=== PATIENT | male | born 1990 | race Hispanic/Latino ===

== ENCOUNTER 2018-05-30 12:20 | Emergency (ER) | payer OTHER ==
[2018-05-30 13:24] LABS: Absolute Lymphocytes (CBC) 2.2 K/uL (0.7-4.9); Absolute Monocytes 2.6 K/uL (0.1-1.3); Absolute Neutrophil 28.8 K/uL (1.8-8.0); Basophils % 0.4 % (0-1.3); Lymphocytes % 6.4 % (15.3-44.8); MPV 10.2 fL (7.6-11.3); Monocytes % 7.8 % (3.3-12.3); RBC Red Blood Cell Count 5.49 M/uL (4.33-5.43)
[2018-05-30] MEDS ORDERED: NA CHLORIDE 0.9% 3,000 ML ONE (13:24)
[2018-05-30 13:27] LABS: Protime INR 1.57
[2018-05-30] MEDS ORDERED: PROMETHAZINE 25 MG/ML VIAL ONE ×2 (13:36→14:11)
[2018-05-30 13:43] LABS: ALT/SGPT 39 U/L (12-78); AST/SGOT 45 U/L (15-37); Albumin 2.8 g/dL (3.4-5.0); Alkaline Phosphatase 114 U/L (45-117); BUN Blood Urea Nitrogen 39 mg/dL (7-18); Bicarbonate 29 mmol/L (21-32); Bilirubin Direct 3.1 mg/dL (0-0.2); Bilirubin Total 4.8 mg/dL (0.2-1.0); CKMB Creatine Kinase MB < 1.0 ng/mL (0.3-3.6); Creatine Phosphokinase 177 U/L (39-308); Glucose Level 156 mg/dL (74-106); Lipase 1247 U/L (73-393); Potassium 3.6 mmol/L (3.5-5.1); Protein, Total 8.2 g/dL (6.4-8.2); Sodium Level 133 mmol/L (136-145); Troponin (Emerg Dept Use Only) < 0.02 ng/mL (0.0-0.045)
[2018-05-30 13:57] LABS: Urine Amorphous Sediment 1+ /HPF (NONE SEEN); Urine Bacteria 20-50 /HPF (NONE SEEN); Urine Culture Reflex Order REFLEXED
[2018-05-30 14:28] LABS: Blood Morphology Comment NOT SEEN (NOT SEEN); Platelet Estimate ADEQ; Polychromasia SLIGHT
[2018-05-30] MEDS ORDERED: PIPER/TAZO/NS 3.375gm 3.375 GM/100 ML BAG ONE (14:39)
--- NOTE | 2018-05-30 14:44 | RAD REPORT ---
EXAM DESCRIPTION: US - Abdomen Exam Limited - 05/30/2018 2:38 pm CLINICAL HISTORY: Abdominal pain. COMPARISON: None. FINDINGS: The gallbladder wall is not thickened. A gallstone is not seen. The gallbladder is disten ded The biliary tree is normal caliber. IMPRESSION: Gallbladder distention without visualization of a gallstone
--- NOTE | 2018-05-30 14:47 | RAD REPORT ---
EXAM DESCRIPTION: CT - Abdomen Pelvis W Contrast - 05/30/2018 2:40 pm CLINICAL HISTORY: Abdominal pain . COMPARISON: none. TECHNIQUE: Computed axial tomography of the abdomen pelvis was obtained. 100 cc Isovue-300 was admin istered intravenously. Oral contrast was not requested which limits evaluation of bowel. All CT scans are performed using dose optimization technique as appropriate and may include automated exposure control or mA/KV adjustment according to patient size. FINDINGS: Fatty liver Small left pleural effusion with basilar atelectasis Spleen, adrenal and kidneys appear unremarkable. The pancreas is enlarged and inhomogeneous. Moderate stranding is present within the adjacent fat wit h ill-defined fluid. A pseudocyst is not noted. There is no evidence of diverticulitis. Small amount of ascites IMPRESSION: Moderate pancreatitis
--- NOTE | 2018-05-30 15:51 | ER ---
Nurse's Notes [facility] Name: Jann Alvarez Age: 28 yrs Sex: Male : 1990 Arrival Date: 05/30/2018 Time: 12:24 Bed 26 Private MD: Diagnosis: Sepsis;Urinary tract infection, site not specified;Cholangitis Presentation: 05/30 12:28 Presenting complaint: Mother states: He has had weakness and vomiting for the past 2 aj1 days. His eyes are yellow, we went to his doctor and they gave him Zofran but his heart rate did not come down so they told us to come to the emergency room. Transition of care: patient was not received from another setting of care. Onset of symptoms was May 28, 2017. Risk Assessment: Do you want to hurt yourself or someone else? Patient reports no desire to harm self or others. Initial Sepsis Screen: Does the patient meet any 2 criteria? HR > 90 bpm. Does the patient have a suspected source of infection? Yes: Acute abdominal pain. Care prior to arrival: None. 12:28 Method Of Arrival: Wheelchair aj1 12:28 Acuity: KIMBER 2 aj1 Triage Assessment: 12:29 General: Appears uncomfortable, Behavior is calm, cooperative. Pain: Complains of pain aj1 in abdomen. Neuro: Level of Consciousness is awake, alert, obeys commands. Cardiovascular: Patient's skin is warm and dry. Respiratory: Airway is patent Respiratory effort is even, unlabored, Respiratory pattern is regular, symmetrical. Derm: Skin is pale. 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 - Social history:: Smoking status: Patient/guardian denies using tobacco. - Ebola Screening: : Patient denies travel to an Ebola-affected area in the 21 days before illness onset. Screenin:35 Abuse screen: Denies threats or abuse. Denies injuries from another. Nutritional ca1 screening: No deficits noted. Tuberculosis screening: No symptoms or risk factors identified. Fall Risk None identified. Assessment: 12:35 General: Appears in no apparent distress. comfortable, Behavior is calm, cooperative. ca1 Pain: Complains of pain in abdomen Pain began 1 day ago. Is intermittent, Unable to use pain scale. Patient appears to be grimacing, to be guarding. Neuro: Level of Consciousness is awake, alert, obeys commands, Oriented to person. Neuro: Oriented to person. Cardiovascular: Heart tones S1 S2 present Capillary refill < 3 seconds Patient's skin is warm and dry. Rhythm is sinus tachycardia. Respiratory: Airway is patent Respiratory effort is even, unlabored, Respiratory pattern is regular, symmetrical, Breath sounds are clear bilaterally. GI: Abdomen is round non-distended, Bowel sounds present X 4 quads. Abd is soft X 4 quads Abdomen is tender to palpation in left lower quadrant and left upper quadrant Parent/caregiver reports the patient having nausea, vomiting, since 4 days ago. : No deficits noted. No signs and/or symptoms were reported regarding the genitourinary system. EENT: Tympanic membrane clear on left ear and right ear Throat is pink. Derm: Skin is intact, is healthy with good turgor, Skin is pink, warm \T\ dry. Musculoskeletal: Circulation, motion, and sensation intact. Capillary refill < 3 seconds. 13:22 Reassessment: Pt actively vomiting. Notified Provider, meds ordered and administered. ca1 13:47 Reassessment: CRITICAL LAB: WBC 33.7. NOTIFIED PROVIDER. ca1 14:05 Reassessment: Pt actively vomiting. Notified providers, meds ordered and administered. ca1 14:07 Reassessment: Patient appears in no apparent distress at this time. Patient is alert, ca1 oriented x 3, equal unlabored respirations, skin warm/dry/pink. Pt to taken to Radiology. 14:41 Reassessment: Patient appears in no apparent distress at this time. Patient is alert, ca1 oriented x 3, equal unlabored respirations, skin warm/dry/pink. Pt back from Radiology. No reports of vomiting at this time. 15:29 Reassessment: Patient appears in no apparent distress at this time. Patient is alert, ca1 oriented x 3, equal unlabored respirations, skin warm/dry/pink. Family still at bedside. 16:35 Reassessment: Called report to Mellissa Alvarez RN at [facility]. ca1 17:15 Reassessment: Pt vomited. Notified Provider. Med ordered and administered. ca1 17:20 Reassessment: Patient appears in no apparent distress at this time. Patient is alert, ca1 oriented x 3, equal unlabored respirations, skin warm/dry/pink. 17:25 Reassessment: Hand off care and report given to EMS [facility]. ca1 Vital Signs: 12:29 BP 118 / 99; Pulse 153; Resp 18; Temp 98.4(TE); Pulse Ox 95% on R/A; Weight 104.33 kg; aj1 13:39 BP 134 / 107; Pulse 125; Resp 20; Pulse Ox 96% on R/A; ca1 14:00 BP 140 / 105; Pulse 136; Resp 24; Pulse Ox 97% on R/A; ca1 14:52 BP 143 / 89; Pulse 118; Resp 24; Pulse Ox 97% on R/A; ca1 15:29 BP 143 / 95; Pulse 121; Resp 21; Temp 98.1(O); Pulse Ox 96% on R/A; ca1 15:41 BP 138 / 82; Pulse 120; Resp 21; Pulse Ox 96% on R/A; ca1 16:37 BP 143 / 84; Pulse 116; Resp 23; Pulse Ox 95% on R/A; ca1 17:23 BP 149 / 95; Pulse 122; Resp 24 S; Pulse Ox 96% on R/A; ca1 ED Course: 12:24 Patient arrived in ED. as 12:29 Triage completed. aj1 12:29 Arm band placed on Patient placed in an exam room. aj1 12:35 Darleen Ordonez, RN is Primary Nurse. ca1 12:35 Patient has correct armband on for positive identification. Placed in gown. Bed in low ca1 position. Call light in reach. Side rails up X 1. Adult w/ patient. compliance monitor on. Pulse ox on. NIBP on. Warm blanket given. 12:38 Jaguar Crawley PA is PHCP. jr8 12:38 Ellis Moreno MD is Attending Physician. jr8 12:43 Inserted saline lock: 20 gauge in right antecubital area, using aseptic technique. ss Blood collected. 12:54 EKG done, by accounts payable technician. reviewed by Jaguar SANDY. at1 13:24 Urine collected: clean catch specimen, tea colored, Amount Voided: 10mL. ca1 13:37 Lab(s) recollected, by me, sent to lab. em1 13:38 Chest Single View XRAY In Process Unspecified. EDMS 14:38 US Abdomen Limited In Process Unspecified. EDMS 14:40 CT Abd/Pelvis - W/Contrast In Process Unspecified. EDMS 15:11 transfer initiated with Carli at the [facility] transfer center/. eb 15:[address] Edgar the loan documentation specialist non categorical preschool teacher for [facility] with Jaguar SANDY for eb patient transfer consultation. 16:10 administrative approval given by Carli Durham RN education program coordinator/ patient has been eb accepted to the [facility] medical ICU/ Dr. Edgar has accepted the patient in transfer/ patient is going to [address] [place] [address] bed 710/ report to be called to [phone]. 17:15 Inserted saline lock: 20 gauge in left antecubital area, using aseptic technique. ca1 17:26 No provider procedures requiring assistance completed. Patient transferred, IV remains ca1 in place. Administered Medications: 12:57 Drug: NS 0.9% (30 ml/kg) 30 ml/kg Route: IV; Rate: bolus; Site: right antecubital; ca1 16:00 Follow up: IV Status: Completed infusion ca1 13:24 Drug: Promethazine 12.5 mg Route: IVP; Site: right antecubital; ca1 14:10 Follow up: Response: No adverse reaction; Vomiting unchanged ca1 14:05 Drug: Promethazine 12.5 mg Route: IVP; Site: right antecubital; ca1 15:50 Follow up: Response: No adverse reaction; Vomiting decreased ca1 14:45 Drug: Zosyn 3.375 grams Route: IVPB; Infused Over: 60 mins; Site: right antecubital; ca1 17:15 Follow up: IV Status: Infusion continued upon transfer ca1 15:43 Drug: fentaNYL (PF) 50 mcg Route: IVP; Site: right antecubital; ca1 17:00 Follow up: Response: No adverse reaction; Pain is decreased ca1 17:15 Drug: Zofran 4 mg Route: IVP; Site: left antecubital; ca1 17:15 Follow up: Response: Medication administered upon transfer ca1 Point of Care Testing: Blood Glucose: 13:42 Blood Glucose: 157 mg/dL; ca1 Ranges: Intake: 16:37 IV: 3000ml; Total: 3000ml. ca1 Output: 15:29 Urine: 100ml (Voided); Total: 100ml. ca1 16:37 Urine: 270ml (Voided); Total: 370ml. ca1 Outcome: 15:50 ER care complete, transfer ordered by MD. hurt 17:26 Transferred by ground EMS to [facility], Transfer form completed. ca1 X-rays sent w/ patient. 17:26 Condition: stable 17:26 Instructed on the need for transfer. 17:28 Patient left the ED. ca1 Signatures: Dispatcher [employer] EDMS Molly Perdomo RN RN aj1 Teresa Cedeno Eric em1 Kimberly Brar RN RN ss Roszak, Josh, PA PA jr8 Bonita Barbosa, creosoting engineer EKG Tat1 Christy Astudillo Cheryl, RN RN ca1 Corrections: (The following items were deleted from the chart) : 13:35 General: Appears in no apparent distress. comfortable, Behavior is calm, ca1 cooperative, ca1 : 13:35 Pain: Complains of pain in abdomen Pain began 1 day ago. Is intermittent, Unable ca1 to use pain scale. Patient appears to be grimacing, to be guarding, ca1 : 13:35 Neuro: Level of Consciousness is awake, alert, obeys commands, Oriented to ca1 person, ca1 : 13:35 Cardiovascular: Heart tones S1 S2 present Capillary refill < 3 seconds Patient's ca1 skin is warm and dry. Rhythm is sinus tachycardia ca1 13:35 Neuro: Oriented to none ca1 ca1 : 13:35 Respiratory: Airway is patent Respiratory effort is even, unlabored, Respiratory ca1 pattern is regular, symmetrical, Breath sounds are clear bilaterally. ca1 : 13:35 GI: Abdomen is round non-distended, Bowel sounds present X 4 quads. Abd is soft X ca1 4 quads Abdomen is tender to palpation in left lower quadrant and left upper quadrant Parent/caregiver reports the patient having nausea, vomiting, since 4 days ago ca1 13:35 : No deficits noted. No signs and/or symptoms were reported regarding the ca1 genitourinary system. ca1 : 13:35 EENT: Tympanic membrane clear on left ear and right ear Throat is pink ca1 ca1 13:35 Derm: Skin is intact, is healthy with good turgor, Skin is pink, warm \T\ dry. ca1 ca1 13:35 Musculoskeletal: Circulation, motion, and sensation intact. Capillary refill < 3 ca1 seconds, ca1 16:21 12:35 Neuro: Oriented to none ca1 ca1
--- NOTE | 2018-05-30 15:52 | EDPHYS ---
Physician Documentation [facility] Name: Jann Alvarez Age: 28 yrs Sex: Male : 1990 Arrival Date: 05/30/2018 Time: 12:24 Bed 26 Private MD: ED Physician Ellis Moreno HPI: 05/30 13:17 This 28 yrs old Male presents to ER via Wheelchair with complaints of Fever jr8 and vomiting. 13:17 The patient reports fever, not measured (subjective). Onset: The symptoms/episode jr8 began/occurred acutely, 2 day(s) ago. Modifying factors: there are no obvious modifying factors. Associated signs and symptoms: Pertinent positives: abdominal pain, vomiting. Severity of symptoms: At their worst the symptoms were moderate in the emergency department the symptoms are unchanged. The patient has not experienced similar symptoms in the past. The patient has been recently seen at an urgent care, today. Patient with autism history. Mother stated that he had been running fever for the past couple of days with vomiting. Complains of abdominal pain. Saw clinic this morning and gave him shot of zofran and told him to go to ED for further evaluation. Elevated HR upon arrival . 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 - Social history:: Smoking status: Patient/guardian denies using tobacco. - Ebola Screening: : Patient denies travel to an Ebola-affected area in the 21 days before illness onset. ROS: 13:17 Eyes: Negative for injury, pain, redness, and discharge, ENT: Negative for injury, jr8 pain, and discharge, Neck: Negative for injury, pain, and swelling, Cardiovascular: Negative for chest pain, palpitations, and edema, Respiratory: Negative for shortness of breath, cough, wheezing, and pleuritic chest pain, Back: Negative for injury and pain, MS/Extremity: Negative for injury and deformity, Skin: Negative for injury, rash, and discoloration, Neuro: Negative for headache, weakness, numbness, tingling, and seizure. 13:17 Constitutional: Positive for fever. 13:17 Abdomen/GI: Positive for abdominal pain, nausea and vomiting, Negative for diarrhea, abdominal distension, anorexia, dysphagia, hematemesis, black/tarry stool, rectal pain, rectal bleeding, bowel incontinence, flatulence. Exam: 13:17 Eyes: Pupils equal round and reactive to light, extra-ocular motions intact. Lids and jr8 lashes normal. Conjunctiva and sclera are non-icteric and not injected. Cornea within normal limits. Periorbital areas with no swelling, redness, or edema. ENT: Nares patent. No nasal discharge, no septal abnormalities noted. Tympanic membranes are normal and external auditory canals are clear. Oropharynx with no redness, swelling, or masses, exudates, or evidence of obstruction, uvula midline. Mucous membranes moist. Neck: Trachea midline, no thyromegaly or masses palpated, and no cervical lymphadenopathy. Supple, full range of motion without nuchal rigidity, or vertebral point tenderness. No Meningismus. Respiratory: Lungs have equal breath sounds bilaterally, clear to auscultation and percussion. No rales, rhonchi or wheezes noted. No increased work of breathing, no retractions or nasal flaring. Back: No spinal tenderness. No costovertebral tenderness. Full range of motion. Skin: Warm, dry with normal turgor. Normal color with no rashes, no lesions, and no evidence of cellulitis. MS/ Extremity: Pulses equal, no cyanosis. Neurovascular intact. Full, normal range of motion. Neuro: Awake and alert, GCS 15, oriented to person, place, time, and situation. Cranial nerves II-XII grossly intact. Motor strength 5/5 in all extremities. Sensory grossly intact 13:17 Cardiovascular: Rate: tachycardic, Rhythm: regular, Pulses: Pulses are 2+ in right radial artery and left radial artery. Heart sounds: normal, normal S1and S2, no S3 or S4, no murmur, no rub, no gallop, Edema: is not appreciated, JVD: is not appreciated. 13:17 Abdomen/GI: Inspection: obese Bowel sounds: active, all quadrants, Palpation: soft, in all quadrants, mild abdominal tenderness, in the right upper quadrant, left upper quadrant and left lower quadrant, mass, is not appreciated, rebound tenderness, is not appreciated, voluntary guarding, is not appreciated, involuntary guarding, is not appreciated, no appreciated organomegaly, Indicators: McBurney's point is not tender, Olivera's sign is negative, Rovsing's sign is negative, Liver: tenderness, is not appreciated. 14:05 ECG was reviewed by the Attending Physician. jr8 Vital Signs: 12:29 BP 118 / 99; Pulse 153; Resp 18; Temp 98.4(TE); Pulse Ox 95% on R/A; Weight 104.33 kg; aj1 13:39 BP 134 / 107; Pulse 125; Resp 20; Pulse Ox 96% on R/A; ca1 14:00 BP 140 / 105; Pulse 136; Resp 24; Pulse Ox 97% on R/A; ca1 14:52 BP 143 / 89; Pulse 118; Resp 24; Pulse Ox 97% on R/A; ca1 15:29 BP 143 / 95; Pulse 121; Resp 21; Temp 98.1(O); Pulse Ox 96% on R/A; ca1 15:41 BP 138 / 82; Pulse 120; Resp 21; Pulse Ox 96% on R/A; ca1 16:37 BP 143 / 84; Pulse 116; Resp 23; Pulse Ox 95% on R/A; ca1 17:23 BP 149 / 95; Pulse 122; Resp 24 S; Pulse Ox 96% on R/A; ca1 MDM: 12:40 Patient medically screened. 8 15:48 Data reviewed: vital signs, nurses notes, lab test result(s), EKG, radiologic studies, [facility] CT scan, plain films, ultrasound. Data interpreted: Pulse oximetry: on room air is 96 %. Interpretation: normal. Counseling: I had a detailed discussion with the patient and/or guardian regarding: the historical points, exam findings, and any diagnostic results supporting the discharge/admit diagnosis, lab results, radiology results, the need to transfer to another facility, [facility] does not immediately have the required specialist. ED course: Dr. Edgar at [facility] consulted on case as we do not have definitive treatment to further work this patient up here. Accepted patient to ICU at [facility] . 05/30 12:52 Order name: Influenza Screen (a \T\ B) [facility] 05/30 12:52 Order name: Strep [facility] 05/30 12:52 Order name: Basic Metabolic Panel [facility] 05/30 12:52 Order name: Blood Culture Adult (2) [facility] 05/30 12:52 Order name: CBC with Diff; Complete Time: 14:37 [facility] 05/30 12:52 Order name: Ckmb; Complete Time: 13:54 [facility] 05/30 12:52 Order name: CPK; Complete Time: 13:54 [facility] 05/30 12:52 Order name: Lactate; Complete Time: 14:07 [facility] 05/30 12:52 Order name: LFT's; Complete Time: 13:54 [facility] 05/30 12:52 Order name: Lipase; Complete Time: 13:54 [facility] 05/30 12:52 Order name: Procalcitonin; Complete Time: 14:07 [facility] 05/30 12:52 Order name: Protime (+inr); Complete Time: 13:54 [facility] 05/30 12:52 Order name: Ptt, Activated; Complete Time: 13:54 [facility] 05/30 12:52 Order name: Troponin (emerg Dept Use Only); Complete Time: 13:54 [facility] 05/30 12:52 Order name: Urine Microscopic Only; Complete Time: 14:07 [facility] 05/30 12:52 Order name: Chest Single View XRAY [facility] 05/30 12:53 Order name: Influenza Screen (A ; Complete Time: 13:54 [facility] 05/30 12:53 Order name: Group A Streptococcus Rapid Sc; Complete Time: 13:42 [facility] 05/30 12:53 Order name: Basic Metabolic Panel; Complete Time: 13:54 [facility] 05/30 13:24 Order name: Glucose, Ancillary Testing; Complete Time: 13:30 [facility] 05/30 13:39 Order name: Throat Culture [facility] 05/30 13:48 Order name: Manual Differential; Complete Time: 14:37 [facility] 05/30 13:55 Order name: US Abdomen Limited; Complete Time: 14:55 [facility] 05/30 13:55 Order name: CT Abd/Pelvis - W/Contrast; Complete Time: 14:55 [facility] 05/30 13:58 Order name: Urine Culture [facility] 05/30 14:02 Order name: Urine Dipstick--Ancillary (enter results) 05/30 12:52 Order name: Accucheck; Complete Time: 13:40 [facility] 05/30 12:52 Order name: Cardiac monitoring; Complete Time: 13:40 [facility] 05/30 12:52 Order name: EKG - Nurse/Tech; Complete Time: 13:41 05/30 12:52 Order name: IV Saline Lock - Large Bore; Complete Time: 13:40 05/30 12:52 Order name: Labs collected and sent; Complete Time: 13:40 05/30 12:52 Order name: O2 Per Protocol; Complete Time: 13:41 05/30 12:52 Order name: O2 Sat Monitoring; Complete Time: 13:05/30 12:52 Order name: Urine Dipstick-Ancillary (obtain specimen); Complete Time: 13:42 05/30 13:23 Order name: Labs - recollect needed; Complete Time: 13:37 eb EC:05 Rate is 140 beats/min. Rhythm is regular, Sinus tachycardia. QRS [place] is Normal. [place] jr8 interval is normal at 126 msec. QRS interval is normal at 78 msec. QT interval is normal at 427 msec. No Q waves. T waves are Normal. No ST changes noted. Clinical impression: Sinus tachycardia and No evidence of ischemia. Interpreted by me. Reviewed by me. Administered Medications: 12:57 Drug: NS 0.9% (30 ml/kg) 30 ml/kg Route: IV; Rate: bolus; Site: right antecubital; ca1 16:00 Follow up: IV Status: Completed infusion ca1 13:24 Drug: Promethazine 12.5 mg Route: IVP; Site: right antecubital; ca1 14:10 Follow up: Response: No adverse reaction; Vomiting unchanged ca1 14:05 Drug: Promethazine 12.5 mg Route: IVP; Site: right antecubital; ca1 15:50 Follow up: Response: No adverse reaction; Vomiting decreased ca1 14:45 Drug: Zosyn 3.375 grams Route: IVPB; Infused Over: 60 mins; Site: right antecubital; ca1 17:15 Follow up: IV Status: Infusion continued upon transfer ca1 15:43 Drug: fentaNYL (PF) 50 mcg Route: IVP; Site: right antecubital; ca1 17:00 Follow up: Response: No adverse reaction; Pain is decreased ca1 17:15 Drug: Zofran 4 mg Route: IVP; Site: left antecubital; ca1 17:15 Follow up: Response: Medication administered upon transfer ca1 Point of Care Testing: Blood Glucose: 13:42 Blood Glucose: 157 mg/dL; ca1 Ranges: Critical Glucose Levels:Adult <50 mg/dl or >400 mg/dl <40 mg/dl or >180 mg/dl Disposition: 05/30/18 15:50 Transfer ordered to [facility]. Diagnosis are Sepsis, Urinary tract infection, site not specified, Cholangitis. - Reason for transfer: Higher level of care. - Accepting physician is Dr. Edgar. - Condition is Fair. - Problem is new. - Symptoms have improved. Critical care time excluding procedures: 15:48 Critical care time: Bedside Care: 20 minutes, Consultation: 10 minutes, Family jr8 Intervention: 10 minutes. Total time: 40 minutes Addendum: 06/04/2018 10:33 Co-signature as Attending Physician, Ellis Mroeno MD I agree with the assessment and k dr plan of care. Signatures: Dispatcher [employer] EDMS Molly Perdomo RN RN aj1 Ellis Moreno MD MD [facility] Jaguar Crawley PA PA jr8 Christy Astudillo Cheryl, RN RN ca1 Corrections: (The following items were deleted from the chart) 05/30 14:06 13:17 Abdomen/GI: Inspection: obese Bowel sounds: active, all quadrants, Palpation: jr8 soft, in all quadrants, mild abdominal tenderness, in the left upper quadrant and left lower quadrant, mass, is not appreciated, rebound tenderness, is not appreciated, voluntary guarding, is not appreciated, involuntary guarding, is not appreciated, no appreciated organomegaly, Indicators: McBurney's point is not tender, Olivera's sign is negative, Rovsing's sign is negative, Liver: tenderness, is not appreciated, jr8 17:28 15:50 05/30/2018 15:50 Transfer ordered to [facility]. Diagnosis is ca1 Sepsis; Urinary tract infection, site not specified; Cholangitis. Reason for transfer: Higher level of care. Accepting physician is Dr. Edgar. Condition is Fair. Problem is new. Symptoms have improved. jr8
[2018-05-30] MEDS ORDERED: FENTANYL CITR 100 MCG/2 ML ONE (15:57)
[2018-05-30] MEDS ORDERED: ONDANSETRON 4 MG/2 ML VIAL ONE (17:25)
[2018-05-30 20:11] LABS: Urine Blood 3+ (NEG); Urine Glucose TRACE (NEG); Urine Protein 3+ (NEG); Urine Specific Gravity 1.025 (1.005-1.030)
--- NOTE | 2018-05-31 06:44 | EKG ---
Test Date: 2018-05-30 Test Time: 12:51:35 Curriculum Coach: JOSE GUADALUPE MEASUREMENT RESULTS: Intervals: Rate: 140 PA: 126 QRSD: 78 QT: 280 QTc: 427 [place]: P: 36 PA: 126 QRS: 16 T: 36 INTERPRETIVE STATEMENTS: Sinus tachycardia Possible Anterior infarct, age undetermined Abnormal ECG Compared to ECG 05/23/1996 15:41:00 Myocardial infarct finding now present Electronically Signed On 05-31-18 06:42:32 CDT by Charly Faustin
--- NOTE | 2018-05-31 10:10 | RAD REPORT ---
EXAM DESCRIPTION: Mary Single View05/30/2018 1:38 pm CLINICAL HISTORY: Fever COMPARISON: none FINDINGS: The patient is in poor degree of inspiration. Lungs appear grossly clear. The heart is mildly to moderately enlarged IMPRESSION: No acute abnormalities displayed
== END 2018-05-30 17:28 | disposition short-term general hospital (02) ==
LOC: ER 12:20
DX: N39.0 Urinary tract infection, site not specified (principal); A41.9 Sepsis, unspecified organism; K83.09 Other cholangitis; F84.0 Autistic disorder
CPT/HCPCS: 36415; 71045; 74177; 76705; 80048; 80076; 81003; 81015; 82550; 82553; 82962; 83605; 83690; 84145; 84484; 85025; 85610; 85730; 87040; 87070; 87081; 87086; 87088; 87804; 93005; 99285; J2405; J2543; J2550; J3010; J7030; Q9967

== ENCOUNTER 2018-07-09 13:26 | Emergency (ER) | payer OTHER ==
--- OUTSIDE RECORDS SUMMARY | 2018-07-09 13:33 | XMS REPORT | Clinical Summary ---
:1990 Author Organization [facility] Address [address] [place] [address] Care Team Providers Name Role Phone Zac Coughlin Primary Care Provider Allergies No Known Allergies Medications Medication Sig Dispensed Refills Start Date End Date Status docusate sodium Take 1 capsule 30 capsule 0 06/17/2018 07/17/2018 Active (COLACE) 100 MG (100 mg total) capsule by mouth daily for 30 days. nystatin Apply topically 15 g 0 06/16/2018 06/16/2019 Active (MYCOSTATIN) 100,000 2 (two) times unit/gram powder daily. HYDROcodone-acetamin Take 1 tablet by 30 tablet 0 06/16/2018 06/26/2018 ophen (NORCO 5-325) mouth every 8 5-325 mg per tablet (eight) hours as needed for up to 10 days. Max Daily Amount: 3 tablets polyethylene glycol Take 17 g by 14 each 0 06/16/2018 06/19/2018 (GLYCOLAX) 17 gram mouth daily as packet needed (constipation) for up to 3 days. Active Problems Problem Noted Date Cholangitis 05/30/2018 Encounters Date Type Specialty Care Team Description 06/02/2018 Travel 05/31/2018 Anesthesia Event Gastroenterology Zachary Richmond MD 05/31/2018 Surgery Gastroenterology Wilmer Santiago ERCP,PAPILLOTOMY MD Kai 05/30/2018 [facility] General Internal Herve, Cholangitis; - Encounter Medicine Wyatt Acute pancreatitis, unspecified complication status, unspecified pancreatitis type; 06/16/2018 MD Mitchell Autism; Alphonso, Dipaben Requires supplemental oxygen; MD Onel Diarrhea, unspecified type; Oscar, Gallstone pancreatitis; Negin Connors, Prolonged pt (prothrombin time); Prolonged PTT; Kellen Toro MD Epigastric abdominal pain Jasmin Monsivais MD 05/30/2018 Telephone Critical Care Medicine Herve, [id number] Call Wyatt Medrano MD after 07/08/2017 Social History Tobacco Use Types Packs/Day Years Used Date Never Smoker Sex Assigned at Date Recorded Not on file Job Start Date Occupation Industry Not on file Not on file Not on file Travel History Travel Start Travel End No recent travel history available. Last Filed Vital Signs Vital Sign Reading Time Taken Blood Pressure 125/90 06/16/2018 7:59 AM CDT Pulse 60 06/16/2018 7:59 AM CDT Temperature 37.1 C (98.7 F) 06/16/2018 7:59 AM CDT Respiratory Rate 18 06/16/2018 7:59 AM CDT Oxygen Saturation 97% 06/16/2018 7:59 AM CDT Inhaled Oxygen Concentration - - Weight 103.8 kg (228 lb 13.4 oz) 06/02/2018 5:00 AM CDT Height 177.8 cm (5' 10") 05/30/2018 8:00 PM CDT Body Mass Index 32.83 06/02/2018 5:00 AM CDT Plan of Treatment Not on file Implants Implanted Type Area Outdoor Illuminating Engineer Device Shelf Model / Identifier Expiration Date Serial / Lot Stent Bili Advanix [id number] - [id number] Stents-Pe [place] 03/10/2020 [id number] / Implanted: Qty: 1 on 05/31/2018 by Wilmer Santiago MD [facility] SCI: PERIPHERAL / INTERV Procedures Procedure Name Priority Date/Time Associated Comments Diagnosis RHYTHM STRIP - SCAN 06/18/2018 7:50 AM CDT PT/APTT Routine 06/16/2018 6:29 Results for this AM CDT procedure are in the results section. CBC W/PLT COUNT & Routine 06/16/2018 6:28 Results for this AUTO DIFFERENTIAL AM CDT procedure are in the results section. CBC W/PLT COUNT & Routine 06/16/2018 6:28 Results for this AUTO DIFFERENTIAL AM CDT procedure are in the results section. MAGNESIUM Routine 06/16/2018 6:28 Results for this AM CDT procedure are in the results section. HEPATIC FUNCTION Routine 06/16/2018 6:28 Results for this PANEL AM CDT procedure are in the results section. BASIC METABOLIC PANEL Routine 06/16/2018 6:28 Results for this (7) AM CDT procedure are in the results section. CBC W/PLT COUNT & Routine 06/15/2018 6:33 Results for this AUTO DIFFERENTIAL AM CDT procedure are in the results section. CBC W/PLT COUNT & Routine 06/15/2018 6:33 Results for this AUTO DIFFERENTIAL AM CDT procedure are in the results section. MAGNESIUM Routine 06/15/2018 6:32 Results for this AM CDT procedure are in the results section. PROTHROMBIN TIME/INR Routine 06/15/2018 6:32 Results for this AM CDT procedure are in the results section. PT/APTT Routine 06/15/2018 6:32 Results for this AM CDT procedure are in the results section. HEPATIC FUNCTION Routine 06/15/2018 6:32 Results for this PANEL AM CDT procedure are in the results section. BASIC METABOLIC PANEL Routine 06/15/2018 6:32 Results for this (7) AM CDT procedure are in the results section. BETA-2 GLYCOPROTEIN Routine 06/14/2018 4:34 Results for this ANTIBODIES PM CDT procedure are in the results section. CBC W/PLT COUNT & Routine 06/14/2018 5:40 Results for this AUTO DIFFERENTIAL AM CDT procedure are in the results section. CBC W/PLT COUNT & Routine 06/14/2018 5:40 Results for this AUTO DIFFERENTIAL AM CDT procedure are in the results section. MAGNESIUM Routine 06/14/2018 5:40 Results for this AM CDT procedure are in the results section. PROTHROMBIN TIME/INR Routine 06/14/2018 5:40 Results for this AM CDT procedure are in the results section. PT/APTT Routine 06/14/2018 5:40 Results for this AM CDT procedure are in the results section. HEPATIC FUNCTION Routine 06/14/2018 5:40 Results for this PANEL AM CDT procedure are in the results section. BASIC METABOLIC PANEL Routine 06/14/2018 5:40 Results for this (7) AM CDT procedure are in the results section. HEXAGONAL AP Routine 06/13/2018 12:20 Results for this PHOSPHOLIPID PM CDT procedure are in the results section. THROMBIN TIME Routine 06/13/2018 12:20 Results for this PM CDT procedure are in the results section. EQUAL MIX, NORMAL AP Routine 06/13/2018 12:20 Results for this PLASMA PM CDT procedure are in the results section. LUPUS ANTICOAGULANT AP Routine 06/13/2018 12:20 Results for this SCREEN WITH REFLEX TO PM CDT procedure are in CONFIRMATORY the results section. CARDIOLIPIN Routine 06/13/2018 12:20 Results for this ANTIBODIES, IGG AND PM CDT procedure are in IGM the results section. FIBRINOGEN Routine 06/13/2018 12:20 Results for this PM CDT procedure are in the results section. MAGNESIUM Routine 06/13/2018 10:04 Results for this AM CDT procedure are in the results section. HEPATIC FUNCTION Routine 06/13/2018 10:04 Results for this PANEL AM CDT procedure are in the results section. BASIC METABOLIC PANEL Routine 06/13/2018 10:04 Results for this (7) AM CDT procedure are in the results section. CBC W/PLT COUNT & Routine 06/13/2018 5:55 Results for this AUTO DIFFERENTIAL AM CDT procedure are in the results section. CBC W/PLT COUNT & Routine 06/13/2018 5:55 Results for this AUTO DIFFERENTIAL AM CDT procedure are in the results section. PROTHROMBIN TIME/INR Routine 06/13/2018 5:55 Results for this AM CDT procedure are in the results section. PT/APTT Routine 06/13/2018 5:55 Results for this AM CDT procedure are in the results section. CBC W/PLT COUNT & Routine 06/12/2018 5:20 Results for this AUTO DIFFERENTIAL AM CDT procedure are in the results section. CBC W/PLT COUNT & Routine 06/12/2018 5:20 Results for this AUTO DIFFERENTIAL AM CDT procedure are in the results section. MAGNESIUM Routine 06/12/2018 5:20 Results for this AM CDT procedure are in the results section. PROTHROMBIN TIME/INR Routine 06/12/2018 5:20 Results for this AM CDT procedure are in the results section. PT/APTT Routine 06/12/2018 5:20 Results for this AM CDT procedure are in the results section. HEPATIC FUNCTION Routine 06/12/2018 5:20 Results for this PANEL AM CDT procedure are in the results section. BASIC METABOLIC PANEL Routine 06/12/2018 5:20 Results for this (7) AM CDT procedure are in the results section. XR CHEST 1 VIEW STAT 06/11/2018 5:55 Results for this PORTABLE/BEDSIDE PM CDT procedure are in the results section. B-TYPE NATRIURETIC Routine 06/11/2018 2:51 Results for this FACTOR (BNP) PM CDT procedure are in the results section. CBC W/PLT COUNT & Routine 06/11/2018 5:06 Results for this AUTO DIFFERENTIAL AM CDT procedure are in the results section. CBC W/PLT COUNT & Routine 06/11/2018 5:06 Results for this AUTO DIFFERENTIAL AM CDT procedure are in the results section. MAGNESIUM Routine 06/11/2018 5:06 Results for this AM CDT procedure are in the results section. PROTHROMBIN TIME/INR Routine 06/11/2018 5:06 Results for this AM CDT procedure are in the results section. PT/APTT Routine 06/11/2018 5:06 Results for this AM CDT procedure are in the results section. HEPATIC FUNCTION Routine 06/11/2018 5:06 Results for this PANEL AM CDT procedure are in the results section. BASIC METABOLIC PANEL Routine 06/11/2018 5:06 Results for this (7) AM CDT procedure are in the results section. CBC W/PLT COUNT & Routine 06/10/2018 5:16 Results for this AUTO DIFFERENTIAL AM CDT procedure are in the results section. CBC W/PLT COUNT & Routine 06/10/2018 5:16 Results for this AUTO DIFFERENTIAL AM CDT procedure are in the results section. MAGNESIUM Routine 06/10/2018 5:16 Results for this AM CDT procedure are in the results section. PT/APTT Routine 06/10/2018 5:16 Results for this AM CDT procedure are in the results section. HEPATIC FUNCTION Routine 06/10/2018 5:16 Results for this PANEL AM CDT procedure are in the results section. BASIC METABOLIC PANEL Routine 06/10/2018 5:16 Results for this (7) AM CDT procedure are in the results section. CBC W/PLT COUNT & Routine 06/09/2018 5:49 Results for this AUTO DIFFERENTIAL AM CDT procedure are in the results section. CBC W/PLT COUNT & Routine 06/09/2018 5:49 Results for this AUTO DIFFERENTIAL AM CDT procedure are in the results section. MAGNESIUM Routine 06/09/2018 5:49 Results for this AM CDT procedure are in the results section. PROTHROMBIN TIME/INR Routine 06/09/2018 5:49 Results for this AM CDT procedure are in the results section. PT/APTT Routine 06/09/2018 5:49 Results for this AM CDT procedure are in the results section. HEPATIC FUNCTION Routine 06/09/2018 5:49 Results for this PANEL AM CDT procedure are in the results section. BASIC METABOLIC PANEL Routine 06/09/2018 5:49 Results for this (7) AM CDT procedure are in the results section. CBC W/PLT COUNT & Routine 06/08/2018 4:39 Results for this AUTO DIFFERENTIAL AM CDT procedure are in the results section. VANCOMYCIN LEVEL, Timed 06/08/2018 4:39 Results for this TROUGH AM CDT procedure are in the results section. CBC W/PLT COUNT & Routine 06/08/2018 4:39 Results for this AUTO DIFFERENTIAL AM CDT procedure are in the results section. MAGNESIUM Routine 06/08/2018 4:39 Results for this AM CDT procedure are in the results section. PROTHROMBIN TIME/INR Routine 06/08/2018 4:39 Results for this AM CDT procedure are in the results section. PT/APTT Routine 06/08/2018 4:39 Results for this AM CDT procedure are in the results section. HEPATIC FUNCTION Routine 06/08/2018 4:39 Results for this PANEL AM CDT procedure are in the results section. BASIC METABOLIC PANEL Routine 06/08/2018 4:39 Results for this (7) AM CDT procedure are in the results section. REPORT OF PROCEDURE - 06/07/2018 3:15 ENDOSCOPY URL PM CDT XR CHEST 1 VIEW Routine 06/07/2018 3:13 Results for this PORTABLE/BEDSIDE PM CDT procedure are in the results section. URINALYSIS W/ REFLEX Routine 06/07/2018 1:47 Results for this URINE CULTURE PM CDT procedure are in the results section. BODY FLUID CULTURE + Routine 06/07/2018 1:42 Results for this GRAM STAIN PM CDT procedure are in the results section. INCUBATED 1:1 MIXING Routine 06/07/2018 11:47 Results for this STUDY AM CDT procedure are in the results section. CBC W/PLT COUNT & Routine 06/07/2018 3:35 Results for this AUTO DIFFERENTIAL AM CDT procedure are in the results section. CBC W/PLT COUNT & Routine 06/07/2018 3:35 Results for this AUTO DIFFERENTIAL AM CDT procedure are in the results section. MAGNESIUM Routine 06/07/2018 3:35 Results for this AM CDT procedure are in the results section. PROTHROMBIN TIME/INR Routine 06/07/2018 3:35 Results for this AM CDT procedure are in the results section. PT/APTT Routine 06/07/2018 3:35 Results for this AM CDT procedure are in the results section. HEPATIC FUNCTION Routine 06/07/2018 3:35 Results for this PANEL AM CDT procedure are in the results section. BASIC METABOLIC PANEL Routine 06/07/2018 3:35 Results for this (7) AM CDT procedure are in the results section. CT DRAINAGE ABDOMINAL Routine 06/06/2018 5:49 Results for this PM CDT procedure are in the results section. CBC W/PLT COUNT & Routine 06/06/2018 1:38 Results for this AUTO DIFFERENTIAL AM CDT procedure are in the results section. CBC W/PLT COUNT & Routine 06/06/2018 1:38 Results for this AUTO DIFFERENTIAL AM CDT procedure are in the results section. MAGNESIUM Routine 06/06/2018 1:38 Results for this AM CDT procedure are in the results section. PROTHROMBIN TIME/INR Routine 06/06/2018 1:38 Results for this AM CDT procedure are in the results section. PT/APTT Routine 06/06/2018 1:38 Results for this AM CDT procedure are in the results section. HEPATIC FUNCTION Routine 06/06/2018 1:38 Results for this PANEL AM CDT procedure are in the results section. BASIC METABOLIC PANEL Routine 06/06/2018 1:38 Results for this (7) AM CDT procedure are in the results section. VANCOMYCIN LEVEL, Timed 06/06/2018 1:38 Results for this TROUGH AM CDT procedure are in the results section. C. DIFFICILE GDH Routine 06/05/2018 6:48 Results for this TOXIN PM CDT procedure are in the results section. FIBRINOGEN Routine 06/05/2018 4:16 Results for this PM CDT procedure are in the results section. CT ABDOMEN/PELVIS LAURA 06/05/2018 11:18 Results for this WITH IV CONTRAST AM CDT procedure are in the results section. (CELLAVISION MANUAL Routine 06/05/2018 3:14 Results for this DIFF) AM CDT procedure are in the results section. CBC W/PLT COUNT & Routine 06/05/2018 3:14 Results for this AUTO DIFFERENTIAL AM CDT procedure are in the results section. CBC W/PLT COUNT & Routine 06/05/2018 3:14 Results for this AUTO DIFFERENTIAL AM CDT procedure are in the results section. MAGNESIUM Routine 06/05/2018 3:14 Results for this AM CDT procedure are in the results section. PROTHROMBIN TIME/INR Routine 06/05/2018 3:14 Results for this AM CDT procedure are in the results section. PT/APTT Routine 06/05/2018 3:14 Results for this AM CDT procedure are in the results section. HEPATIC FUNCTION Routine 06/05/2018 3:14 Results for this PANEL AM CDT procedure are in the results section. BASIC METABOLIC PANEL Routine 06/05/2018 3:14 Results for this (7) AM CDT procedure are in the results section. BLOOD CULTURE Routine 06/04/2018 2:00 Results for this PM CDT procedure are in the results section. LACTIC ACID, VENOUS Routine 06/04/2018 1:44 Results for this PM CDT procedure are in the results section. BLOOD CULTURE Routine 06/04/2018 1:44 Results for this PM CDT procedure are in the results section. PROCALCITONIN Routine 06/04/2018 1:42 Results for this PM CDT procedure are in the results section. (CELLAVISION MANUAL Routine 06/04/2018 5:06 Results for this DIFF) AM CDT procedure are in the results section. CBC W/PLT COUNT & Routine 06/04/2018 5:06 Results for this AUTO DIFFERENTIAL AM CDT procedure are in the results section. CBC W/PLT COUNT & Routine 06/04/2018 5:06 Results for this AUTO DIFFERENTIAL AM CDT procedure are in the results section. MAGNESIUM Routine 06/04/2018 5:06 Results for this AM CDT procedure are in the results section. PROTHROMBIN TIME/INR Routine 06/04/2018 5:06 Results for this AM CDT procedure are in the results section. PT/APTT Routine 06/04/2018 5:06 Results for this AM CDT procedure are in the results section. HEPATIC FUNCTION Routine 06/04/2018 5:06 Results for this PANEL AM CDT procedure are in the results section. BASIC METABOLIC PANEL Routine 06/04/2018 5:06 Results for this (7) AM CDT procedure are in the results section. CBC W/PLT COUNT & Routine 06/03/2018 5:33 Results for this AUTO DIFFERENTIAL AM CDT procedure are in the results section. CBC W/PLT COUNT & Routine 06/03/2018 5:33 Results for this AUTO DIFFERENTIAL AM CDT procedure are in the results section. MAGNESIUM Routine 06/03/2018 5:33 Results for this AM CDT procedure are in the results section. PROTHROMBIN TIME/INR Routine 06/03/2018 5:33 Results for this AM CDT procedure are in the results section. PT/APTT Routine 06/03/2018 5:33 Results for this AM CDT procedure are in the results section. HEPATIC FUNCTION Routine 06/03/2018 5:33 Results for this PANEL AM CDT procedure are in the results section. BASIC METABOLIC PANEL Routine 06/03/2018 5:33 Results for this (7) AM CDT procedure are in the results section. CBC W/PLT COUNT & Routine 06/02/2018 3:49 Results for this AUTO DIFFERENTIAL AM CDT procedure are in the results section. CBC W/PLT COUNT & Routine 06/02/2018 3:49 Results for this AUTO DIFFERENTIAL AM CDT procedure are in the results section. MAGNESIUM Routine 06/02/2018 3:49 Results for this AM CDT procedure are in the results section. PROTHROMBIN TIME/INR Routine 06/02/2018 3:49 Results for this AM CDT procedure are in the results section. PT/APTT Routine 06/02/2018 3:49 Results for this AM CDT procedure are in the results section. HEPATIC FUNCTION Routine 06/02/2018 3:49 Results for this PANEL AM CDT procedure are in the results section. BASIC METABOLIC PANEL Routine 06/02/2018 3:49 Results for this (7) AM CDT procedure are in the results section. US ABDOMEN LIMITED STAT 06/01/2018 1:36 Results for this PM CDT procedure are in the results section. CBC W/PLT COUNT & Routine 06/01/2018 5:00 Results for this AUTO DIFFERENTIAL AM CDT procedure are in the results section. CBC W/PLT COUNT & Routine 06/01/2018 5:00 Results for this AUTO DIFFERENTIAL AM CDT procedure are in the results section. MAGNESIUM Routine 06/01/2018 5:00 Results for this AM CDT procedure are in the results section. PROTHROMBIN TIME/INR Routine 06/01/2018 5:00 Results for this AM CDT procedure are in the results section. PT/APTT Routine 06/01/2018 5:00 Results for this AM CDT procedure are in the results section. HEPATIC FUNCTION Routine 06/01/2018 5:00 Results for this PANEL AM CDT procedure are in the results section. BASIC METABOLIC PANEL Routine 06/01/2018 5:00 Results for this (7) AM CDT procedure are in the results section. FL ERCP Routine 05/31/2018 2:22 Results for this PM CDT procedure are in the results section. ERCP,BILIARY STENT 05/31/2018 1:00 Cholangitis PM CDT Special Needs ercp w/ anes and fluoro ERCP,BALLOON SWEEPING 05/31/2018 1:00 PM CDT Cholangitis Special Needs ercp w/ anes and fluoro PROCEDURE W/ C-ARM 05/31/2018 1:00 PM CDT Cholangitis Special Needs ercp w/ anes and fluoro ERCP,PAPILLOTOMY 05/31/2018 1:00 PM CDT Cholangitis Special Needs ercp w/ anes and fluoro XR CHEST 1 VIEW STAT 05/31/2018 10:48 AM CDT Results for this PORTABLE/BEDSIDE procedure are in the results section. (CELLAVISION MANUAL DIFF) Routine 05/31/2018 3:45 AM CDT CBC W/PLT COUNT & AUTO Routine 05/31/2018 3:45 AM CDT Results for this DIFFERENTIAL procedure are in the results section. CBC W/PLT COUNT & AUTO Routine 05/31/2018 3:45 AM CDT Results for this DIFFERENTIAL procedure are in the results section. MAGNESIUM Routine 05/31/2018 3:45 AM CDT PROTHROMBIN TIME/INR Routine 05/31/2018 3:45 AM CDT PT/APTT Routine 05/31/2018 3:45 AM CDT HEPATIC FUNCTION PANEL Routine 05/31/2018 3:45 AM CDT BASIC METABOLIC PANEL (7) Routine 05/31/2018 3:45 AM CDT URINALYSIS W/ REFLEX URINE Routine 05/30/2018 9:16 PM CDT Results for this CULTURE procedure are in the results section. (CELLAVISION MANUAL DIFF) Routine 05/30/2018 8:44 PM CDT CBC W/PLT COUNT & AUTO Routine 05/30/2018 8:44 PM CDT Results for this DIFFERENTIAL procedure are in the results section. LIPASE Routine 05/30/2018 8:44 PM CDT GAMMA GLUTAMYL TRANSFERASE Routine 05/30/2018 8:44 PM CDT Results for this (GGT) procedure are in the results section. TROPONIN I Routine 05/30/2018 8:44 PM CDT CBC W/PLT COUNT & AUTO Routine 05/30/2018 8:44 PM CDT Results for this DIFFERENTIAL procedure are in the results section. MAGNESIUM Routine 05/30/2018 8:44 PM CDT LIPID PANEL Routine 05/30/2018 8:44 PM CDT PROTHROMBIN TIME/INR Routine 05/30/2018 8:44 PM CDT HEPATIC FUNCTION PANEL Routine 05/30/2018 8:44 PM CDT BASIC METABOLIC PANEL (7) Routine 05/30/2018 8:44 PM CDT BLOOD CULTURE Routine 05/30/2018 8:44 PM CDT BLOOD CULTURE Routine 05/30/2018 8:44 PM CDT after 07/08/2017 Results RHYTHM STRIP - SCAN (06/18/2018 7:50 AM CDT) Narrative Performed At PT/aPTT (06/16/2018 6:29 AM CDT)Only the most recent of17 resultswithin the time period is included. Protime 14.8 (H) 11.7 - 14.7 seconds [facility] INR 1.2 <=5.9 [facility] PTT 33.8 22.5 - 36.0 seconds [facility] Specimen Blood Narrative Performed At RECOMMENDED COUMADIN/WARFARIN INR THERAPY [facility] RANGES STANDARD DOSE: 2.0 - 3.0 Includes: PROPHYLAXIS for venous thrombosis, systemic embolization; TREATMENT for venous thrombosis and/or pulmonary embolus. HIGH RISK: Target INR is 2.5-3.5 for patients with mechanical heart valves. Performing Organization Address City/State/Zipcode Phone Number [facility] [address] [place] [address] CENTER CBC with platelet count + automated diff (06/16/2018 6:28 AM CDT)Only the most recent of18 resultswithin the time period is included. WBC 11.2 (H) 3.5 - 10.5 K/L [facility] RBC 4.39 (L) 4.63 - 6.08 M/L [facility] Hemoglobin 12.7 (L) 13.7 - 17.5 GM/DL [facility] Hematocrit 40.5 40.1 - 51.0 % [facility] MCV 92.3 (H) 79.0 - 92.2 fL [facility] MCH 28.9 25.7 - 32.2 pg [facility] MCHC 31.4 (L) 32.3 - 36.5 GM/DL [facility] RDW 13.4 11.6 - 14.4 % [facility] Platelets 570 (H) 150 - 450 K/CU MM [facility] MPV 10.5 9.4 - 12.4 fL [facility] nRBC 0 0 - 0 /100 WBC [facility] % Neutros 64 % [facility] % Lymphs 20 % [facility] % Monos 9 % [facility] % Eos 5 % [facility] % Baso 1 % [facility] # Neutros 7.13 (H) 1.78 - 5.38 K/L [facility] # Lymphs 2.20 1.32 - 3.57 K/L [facility] # Monos 0.95 (H) 0.30 - 0.82 K/L [facility] # Eos 0.59 (H) 0.04 - 0.54 K/L [facility] # Baso 0.14 (H) 0.01 - 0.08 K/L [facility] Immature Granulocytes-Relative 2 (H) 0 - 1 % [facility] Specimen Blood Performing Organization Address City/[facility]/Zipcode Phone Number [address] [address] [place] Magnesium (06/16/2018 6:28 AM CDT)Only the most recent of18 resultswithin the time period is included. Magnesium 1.6 1.6 - 2.6 mg/dL [facility] Specimen Blood Performing Organization Address [facility] Phone Number [address] [address] [place] Hepatic function panel (06/16/2018 6:28 AM CDT)Only the most recent of18 resultswithin the time period is included. Protein, Total 7.6 6.0 - 8.3 gm/dL [facility] Albumin 3.3 (L) 3.5 - 5.0 g/dL [facility] Total Bilirubin 0.7 0.2 - 1.2 mg/dL [facility] Bilirubin, Direct 0.5 0.1 - 0.5 mg/dL [facility] Alkaline Phosphatase 105 40 - 150 U/L [facility] AST 38 (H) 5 - 34 U/L [facility] ALT 41 6 - 55 U/L [facility] Specimen Blood Performing Organization Address City/[facility]/Zipcode Phone Number [address] [address] [place] Basic metabolic panel (06/16/2018 6:28 AM CDT)Only the most recent of18 resultswithin the time period is included. Sodium 138 136 - 145 meq/L [facility] Potassium 4.4 3.5 - 5.1 meq/L [facility] Chloride 102 98 - 107 meq/L [facility] CO2 24 22 - 29 meq/L [facility] BUN 7 7 - 21 mg/dL [facility] [facility] Creatinine 0.80 0.57 - 1.25 mg/dL [facility] Glucose 93 70 - 105 mg/dL [facility] Calcium 9.6 8.4 - 10.2 mg/dL [facility] EGFR 114Comment: ESTIMATED GFR IS mL/min/1.73 sq m [facility] NOT ACCURATE [facility] CLEARANCE IN PREDICTING GLOMERULAR FILTRATION RATE. ESTIMATED GFR IS NOT APPLICABLE FOR DIALYSIS PATIENTS. Specimen Blood Performing Organization Address City/[facility] Cent[facility]ode Phone Number [address] [address] [place] Prothrombin time/INR (06/15/2018 6:32 AM CDT)Only the most recent of16 resultswithin the time period is included. Protime 14.5 11.7 - 14.7 seconds [facility] INR 1.2 <=5.9 [facility] Specimen Blood Narrative Performed At RECOMMENDED COUMADIN/WARFARIN INR THERAPY [facility] RANGES STANDARD DOSE: 2.0 - 3.0 Includes: PROPHYLAXIS for venous thrombosis, systemic embolization; TREATMENT for venous thrombosis and/or pulmonary embolus. HIGH RISK: Target INR is 2.5-3.5 for patients with mechanical heart valves. Performing Organization Address City/[facility] Centercode Phone Number [place] [id number] [place] [address] [phone] CENTER Beta-2 glycoprotein antibodies (06/14/2018 4:34 PM CDT) B2 Glcoprotein Ab Profile Refer to individual [facility] B2-Glycoprotein IgG, IgM INCORPORATED and IgA results. Specimen Blood Narrative Performed At Performing Organization Address City/State/Zipcode Phone Number [facility], [place] [address] INCORPORATED [address] Hexagonal Phospholipid (06/13/2018 12:20 PM CDT) Hexagonal Phospholipid Positive [facility] Specimen Blood Performing Organization Address City/[facility]/Zipcode Phone Number [address] [address] [place] Lupus Anticoagulant Screen with Reflex To Confirmatory (06/13/2018 12:20 PM CDT) DRVV Screen Ratio 1.39 (H) <1.20 [facility] DRVV Confirm Ratio 1.21 [facility] Interpretations Positive screen for Lupus [facility] Anticoagulant with [facility] hexagonal phospholipid confirmation. Suggest repeat testing in 12 weeks and when patient not receiving anticoagulant therapy. Protime 19.6 (H) 11.7 - 14.7 seconds [facility] INR 1.7 <=5.9 [facility] PTT 57.5 (H) 22.5 - 36.0 seconds [facility] PTT-LA 61.5 (H) 32.0 - 41.8 [facility] Pathologist: Christy Smith MD [facility] (electronic signature) [facility] Specimen Blood Performing Organization Address City/[facility]/Zipcode Phone Number [address] [address] [place] 1:1 MIXING STUDY, NON-INCUBATED (06/13/2018 12:20 PM CDT) Protime 19.6 (H) 11.7 - 14.7 seconds [facility] PTT 57.5 (H) 22.5 - 36.0 seconds [facility] PT 02/05 Mix 14.4 11.7 - 14.7 SECS [facility] PTT 02/05 Mix 41.9 (H) 22.5 - 36.0 SECS [facility] Specimen Blood Performing Organization Address [facility] [place] [facility] Centercode Phone Number [address] [address] [phone] [place] Cardiolipin Antibodies, IgG and IgM (06/13/2018 12:20 PM CDT) Anticardiolipin IgG <1.6 <20.0 GPL [facility] Anticardiolipin IgM 0.2 <20.0 MPL [facility] Specimen Blood Narrative Performed At Anticardiolipin IgG Result Interpretation: [facility] <20.0 GPL Normal >/=20.0 GPL Positive Anticardiolipin IgM Result Interpretation: <20.0 MPL Normal >/=20.0 MPL Positive Performing Organization Address [facility] Phone Number [address] [address] [place] Thrombin time (06/13/2018 12:20 PM CDT) Thrombin Time 17.2 13.8 - 20.0 secs [facility] Specimen Blood Performing Organization Address City/[facility] Centercode Phone Number [address] [address] [place] Fibrinogen (06/13/2018 12:20 PM CDT)Only the most recent of2 resultswithin the time period is included. Fibrinogen 762 (H) 225 - 434 mg/dl [facility] Specimen Blood Performing Organization Address [facility] Centercode Phone Number [address] [address] [phone] [place] XR chest 1 view portable / bedside (06/11/2018 5:55 PM CDT)Only the most recent of3 resultswithin the time period is included. Specimen Narrative Performed At FINAL REPORT [facility] TECHNIQUE: Frontal view of the chest. INDICATION: 28-year-old man with shortness of breath. COMPARISON: Chest radiograph 06/07/2018. FINDINGS: LINES/TUBES: Unchanged pigtail catheter projects over the left upper quadrant. LUNGS: Persistent low lung volumes. Decreased retrocardiac opacity. PLEURA: No pneumothorax or significant pleural effusion. HEART AND MEDIASTINUM: The cardiomediastinal silhouette is unchanged. SOFT TISSUES AND BONES: Unremarkable. IMPRESSION: Decreased retrocardiac opacity. Otherwise, no significant change since 06/07/2018. Signed: Adán Herrmann MD Report Verified Date/Time:06/11/2018 18:34:14 Reading Location: [facility] C013 Consult Reading Room Procedure Note Interface, External Ris In - 06/11/2018 6:36 PM CDT FINAL REPORT TECHNIQUE: Frontal view of the chest. INDICATION: 28-year-old man with shortness of breath. COMPARISON: Chest radiograph 06/07/2018. FINDINGS: LINES/TUBES: Unchanged pigtail catheter projects over the left upper quadrant. LUNGS: Persistent low lung volumes. Decreased retrocardiac opacity. PLEURA: No pneumothorax or significant pleural effusion. HEART AND MEDIASTINUM: The cardiomediastinal silhouette is unchanged. SOFT TISSUES AND BONES: Unremarkable. IMPRESSION: Decreased retrocardiac opacity. Otherwise, no significant change since 06/07/2018. Signed: Adán Herrmann MD Report Verified Date/Time: 06/11/2018 18:34:14 Reading Location: [facility] B1 C013W Consult Reading Room Performing Organization Address City/State/[facility] [place] [facility] Centercode Phone Number [facility] B-type Natriuretic Factor (BNP) (06/11/2018 2:51 PM CDT) BNP <10 0 - 100 pg/mL [facility] Specimen Blood Performing Organization Address City/State/Zipcode Phone Number [facility] [address] [place], [place] [phone] CENTER Vancomycin level, trough (06/08/2018 4:39 AM CDT)Only the most recent of2 resultswithin the time period is included. Vancomycin Tr 14.0 10.0 - 20.0 ug/mL [facility] Specimen Blood Performing Organization Address City/State/Zipcode Phone Number [facility] [address] [place] [address] [place] REPORT OF PROCEDURE - ENDOSCOPY URL (06/07/2018 3:15 PM CDT) Narrative Performed At Urinalysis w/Microscopic + Reflex to Culture (06/07/2018 1:47 PM CDT)Only the most recent of2 resultswithin the time period is included. Color, UA Yellow [facility] Clarity, UA Clear [facility] Specific [place], UA 1.012 1.001 - 1.035 [facility] pH, UA 6.5 5.0 - 8.0 [facility] Protein, UA 20 mg/dL (A) Negative [facility] Glucose, UA Negative Negative [facility] Ketones, UA 40 mg/dL (A) Negative [facility] Bilirubin, UA Negative Negative [facility] Blood, UA Trace (A) Negative [facility] Nitrite, UA Negative Negative [facility] Leukocytes, UA Negative Negative [facility] Urobilinogen, UA 0.2 0.2 - 1.0 mg/dL [facility] RBC, UA 2 /HPF [facility] WBC, UA 3 /HPF [facility] Mucus Rare [facility] Specimen Source [facility] Specimen Urine Performing Organization Address City/[facility]/Zipcode Phone Number [facility] [address] [place] [address] [place] Body fluid culture + gram stain (06/07/2018 1:42 PM CDT) Result No growth [facility] Gram Stain Result <1+ White blood cells seen [facility] Gram Stain Result No organisms seen [facility] Specimen Body Fluid Performing Organization Address [facility] [place] [facility] Centercode Phone Number [facility] [address] [place] [address] [phone] CENTER Incubated 1:1 Mixing Study (06/07/2018 11:47 AM CDT) Immediate PT 22.5 (H) 11.7 - 14.7 [facility] Immediate PTT 54.8 (H) 22.5 - 36.0 [facility] Immediate 1:1 Mix PT 14.1 11.7 - 14.7 [facility] Immediate 1:1 Mix PTT 40.9 (H) 22.5 - 36.0 [facility] 1:1 MIX, 1 HOUR INC PT 14.9 seconds [facility] 1:1 MIX, 1 HOUR INC PTT 43.6 seconds [facility] MIXING STUDY PATHOLOGIST Prolonged PT and PTT [facility] INTERPRETATION with complete 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 signature) Specimen Blood Performing Organization Address City/[facility]/Zipcode Phone Number [facility] [address] [place] [address] [address] drainage abdominal (06/06/2018 5:49 PM CDT) Specimen Narrative Performed At FINAL REPORT [facility] INDICATION: 28-year-old male with acute pancreatitis and acute necrotic collection. Request for percutaneous image guided drainage catheter placement. COMPARISON: June 05, 2018 TECHNIQUE: CT-guided placement of 10 Serbian drainage catheter in left upper quadrant peripancreatic collection. FINDINGS: The procedure was explained to the patient and the patient's mother and informed consent was signed. The patient was positioned supine and preliminary images confirmed a safe window to the left upper quadrant peripancreatic collection. Timeout was performed. To sedate the patient Versed and Fentanyl were administered, as described below. The patient's skin was prepped and draped in standard sterile fashion. 2% lidocaine was used for local anesthesia. Using a left anterolateral approach and CT guidance, a 19 gauge introducer needle was advanced into the fluid collection. Dark thin fluid was encountered. A guide wire was placed and the introducer needle removed. An 8 Serbian and then 10 Serbian dilator were used. Then, a 10 Serbian multisidehole drainage catheter was placed over the guidewire and into the collection. Guidewire and stiffener were removed and the catheter was pigtailed. Catheter was connected to bulb suction and sutured to the skin. Bulb quickly filled with 100 cc of dark thin fluid. CT showed collapse of the collection around the catheter tip. Patient tolerated procedure well and was transferred back to his hospital room. PROCEDURAL SEDATION: Procedural sedation was used with Versed 1.0 mg IV and Fentanyl 50 mcg IV administered. The department of radiology nurse was present at the time of procedure. Monitored cardiorespiratory function during conscious sedation was performed under the radiologist's supervision. Total monitoring time was approximately 45 minutes. IMPRESSION: CT-guided placement of 10 Serbian drainage catheter in left upper quadrant peripancreatic collection. Thin dark fluid was encountered. Signed: Leo Felton MD Report Verified Date/Time:06/06/2018 18:06:54 Reading Location: [facility] B1 C013Y CT Body Reading Room Procedure Note Interface, External Ris In - 06/06/2018 6:09 PM CDT FINAL REPORT INDICATION: 28-year-old male with acute pancreatitis and acute necrotic collection. Request for percutaneous image guided drainage catheter placement. COMPARISON: June 05, 2018 TECHNIQUE: CT-guided placement of 10 Serbian drainage catheter in left upper quadrant peripancreatic collection. FINDINGS: The procedure was explained to the patient and the patient's mother and informed consent was signed. The patient was positioned supine and preliminary images confirmed a safe window to the left upper quadrant peripancreatic collection. Timeout was performed. To sedate the patient Versed and Fentanyl were administered, as described below. The patient's skin was prepped and draped in standard sterile fashion. 2% lidocaine was used for local anesthesia. Using a left anterolateral approach and CT guidance, a 19 gauge introducer needle was advanced into the fluid collection. Dark thin fluid was encountered. A guide wire was placed and the introducer needle removed. An 8 Serbian and then 10 Serbian dilator were used. Then, a 10 Serbian multisidehole drainage catheter was placed over the guidewire and into the collection. Guidewire and stiffener were removed and the catheter was pigtailed. Catheter was connected to bulb suction and sutured to the skin. Bulb quickly filled with 100 cc of dark thin fluid. CT showed collapse of the collection around the catheter tip. Patient tolerated procedure well and was transferred back to his hospital room. PROCEDURAL SEDATION: Procedural sedation was used with Versed 1.0 mg IV and Fentanyl 50 mcg IV administered. The department of radiology nurse was present at the time of procedure. Monitored cardiorespiratory function during conscious sedation was performed under the radiologist's supervision. Total monitoring time was approximately 45 minutes. IMPRESSION: CT-guided placement of 10 Serbian drainage catheter in left upper quadrant peripancreatic collection. Thin dark fluid was encountered. Signed: Leo Felton MD Report Verified Date/Time: 06/06/2018 18:06:54 Reading Location: [facility] C013Y CT Body Reading Room Performing Organization Address City/State/Zipcode Phone Number [facility] Clostridium difficile [facility] Toxin (06/05/2018 6:48 PM CDT) C. Difficle Toxin Negative Negative [facility] C. Difficile [facility] Antigen NegativeComment: No Negative [facility] indication of Clostridium [facility] difficile infection and no colonization. Discontinue enteric isolation and therapy. Specimen Stool Narrative Performed At Testing performed by [employer] [facility] Assay.For [facility], published sensitivity of the assay is 98.7% compared to cytotoxicity testing.For Toxin AB, published sensitivity is 87.8% and specificity 99.4% compared to cytotoxicity testing. Verification of kit performance was done by the [facility] Microbiology Lab prior to clinical use. Performing Organization Address City/State/Zipcode Phone Number [facility] [address] [place] [address] [phone] abdomen/pelvis with IV contrast (06/05/2018 11:18 AM CDT) Specimen Narrative Performed At FINAL REPORT [facility] CT abdomen and pelvis with contrast History: Abdominal pain and fever Comparison: none Technique: serial axial imaging was performed following up to 100cc of non ionic iodinated intravenous contrast as per departmental protocol.Multiplanar images are reconstructed and reviewed when indicated. This CT examination is performed using one or more of the following dose reduction techniques: Automated exposure control, adjustment of the mA and /or kV according to patient size, and/or use of iterative reconstruction technique. Findings: Small bilateral pleural effusions. Bilateral lower lobe airspace disease is probably dependent atelectasis. Moderate peripancreatic fluid, suggestive of acute pancreatitis. Within the pancreatic head, there is a subtle area of decreased attenuation measuring approximately 2.4 cm in size (axial image 39). The splenic vein is patent. A fluid collection is seen interposed between the greater curvature of the stomach and pancreatic body measuring 7.2 x 6.5 x 3.7 cm in size. No gas is contained within this collection. Diffuse fatty infiltration of the liver is noted. A common bile duct stent is in place, without intrahepatic or extrahepatic biliary dilation. No hepatic mass or fluid collection. The gallbladder demonstrates no calcified stone, wall thickening, or pericholecystic fluid. Unremarkable appearance of adrenal glands, kidneys, ureters, and urinary bladder. . No small or large bowel obstruction.No apparent bowel wall thickening.No findings to indicate acute appendicitis. No lymphadenopathy is seen within the abdomen or pelvis. No abdominal aortic aneurysm. No aggressive osseous lesion. Impression: 1. Findings consistent with acute pancreatitis. 2. Subtle 2.4 cm area of decreased attenuation within the pancreatic head may either represent focal edema or early pancreatic necrosis. 3. Developing 7.2 x 6.5 x 3.7 cm fluid collection between the pancreatic body and greater curvature of the stomach. No gas is contained within this collection to definitively suggest abscess, although this possibility is not entirely excluded. 4. Diffuse fatty infiltration of the liver. 5. Common bile duct stent in place, without evidence of biliary dilation. Signed: Keegan Lee MD Report Verified Date/Time:06/05/2018 12:46:00 Reading Location: [facility] Diagnostic Imaging Reading Room - [place] [address] Procedure Note Interface, External Ris In - 06/05/2018 12:48 PM CDT FINAL REPORT CT abdomen and pelvis with contrast History: Abdominal pain and fever Comparison: none Technique: serial axial imaging was performed following up to 100cc of non ionic iodinated intravenous contrast as per departmental protocol. Multiplanar images are reconstructed and reviewed when indicated. This CT examination is performed using one or more of the following dose reduction techniques: Automated exposure control, adjustment of the mA and /or kV according to patient size, and/or use of iterative reconstruction technique. Findings: Small bilateral pleural effusions. Bilateral lower lobe airspace disease is probably dependent atelectasis. Moderate peripancreatic fluid, suggestive of acute pancreatitis. Within the pancreatic head, there is a subtle area of decreased attenuation measuring approximately 2.4 cm in size (axial image 39). The splenic vein is patent. A fluid collection is seen interposed between the greater curvature of the stomach and pancreatic body measuring 7.2 x 6.5 x 3.7 cm in size. No gas is contained within this collection. Diffuse fatty infiltration of the liver is noted. A common bile duct stent is in place, without intrahepatic or extrahepatic biliary dilation. No hepatic mass or fluid collection. The gallbladder demonstrates no calcified stone, wall thickening, or pericholecystic fluid. Unremarkable appearance of adrenal glands, kidneys, ureters, and urinary bladder. . No small or large bowel obstruction. No apparent bowel wall thickening. No findings to indicate acute appendicitis. No lymphadenopathy is seen within the abdomen or pelvis. No abdominal aortic aneurysm. No aggressive osseous lesion. Impression: 1. Findings consistent with acute pancreatitis. 2. Subtle 2.4 cm area of decreased attenuation within the pancreatic head may either represent focal edema or early pancreatic necrosis. 3. Developing 7.2 x 6.5 x 3.7 cm fluid collection between the pancreatic body and greater curvature of the stomach. No gas is contained within this collection to definitively suggest abscess, although this possibility is not entirely excluded. 4. Diffuse fatty infiltration of the liver. 5. Common bile duct stent in place, without evidence of biliary dilation. Signed: Keegan Lee MD Report Verified Date/Time: 06/05/2018 12:46:00 Reading Location: [facility] Diagnostic Imaging Reading Room - [place] [address] Performing Organization Address City/State/[facility] [place] [facility] Cent[facility] Phone Number RIS Manual Differential (06/05/2018 3:14 AM CDT)Only the most recent of4 resultswithin the time period is included. % Neutros 75 % [facility] % Lymphs 11 % [facility] % Monos 9 % [facility] % Eos 5 % [facility] # Neutros 18.08 (H) 1.78 - 5.38 K/ul [facility] # Lymphs 2.65 1.32 - 3.57 K/ul [facility] # Monos 2.17 (H) 0.30 - 0.82 K/uL [facility] # Eos 1.21 (H) 0.04 - 0.54 K/uL [facility] Total Counted 100 [facility] RBC Morphology Normal [facility] WBC Morphology Normal [facility] Platelet Morphology Normal [facility] Artifact Present [facility] Platelet Conc Adequate [facility] Specimen Blood Narrative Performed At Received comment: [facility] User comments: Slide comments: Performing Organization Address City/State/Zipcode Phone Number [address] [address] CENTER Blood Culture - Routine (Right Venipuncture) (06/04/2018 2:00 PM CDT)Only the most recent of4 resultswithin the time period is included. Result No growth in 5 days [facility] Specimen Blood Performing Organization Address City/[facility]/Zipcode Phone Number [address] [address] [place] Lactic acid, venous (06/04/2018 1:44 PM CDT) Lactate, Venous 1.1Comment: Specimen 0.5 - 2.2 mmol/L [facility] moderately hemolyzed [facility] Specimen Blood Performing Organization Address [facility] [place] [facility] Centercode Phone Number [address] [address] [phone] [place] Procalcitonin (06/04/2018 1:42 PM CDT) Procalcitonin 0.62 (H) <0.05 ng/mL [facility] Specimen Blood Narrative Performed At SEPSIS RISK (ng/mL) [facility] Low:0.05-0.50 Intermediate: 0.51-2.00 High: >=2.01 Performing Organization Address [facility] Phone Number [address] [address] [place] US abdomen limited (06/01/2018 1:36 PM CDT) Specimen Narrative Performed At FINAL REPORT [facility] ULTRASOUND RIGHT UPPER QUADRANT OF THE ABDOMEN HISTORY: Status post ERCP, cholangitis COMPARISON: No comparison cross-sectional imaging of the abdomen TECHNIQUE: Real-time ultrasound of the right upper quadrant of the abdomen was performed. Sonographic windows were limited by bowel gas and patient body habitus. FINDINGS: The liver is normal in size. Hepatic length is 15.8 cm. Hepatic echogenicity appears increased, which may reflect fatty infiltration. No hepatic mass lesion is visualized. The gallbladder demonstrates normal wall thickness with no pericholecystic fluid. No sonographic Olivera sign was elicited. No gallstones. The common bile duct is normal in caliber, measuring 3.6 mm. The main portal vein is normal in caliber, measuring 11mm. Pancreas cannot be visualized with ultrasound.No ascites or pleural effusion. The right kidney is normal in size, contour, and echogenicity. The right kidney measures 10.1 cm in length.No hydronephrosis, mass lesion or stones are visualized. No abnormalities are seen in the abdominal aorta, inferior vena cava, or hepatic veins. The mid to distal abdominal aorta were obscured by bowel gas. The left hepatic vein was obscured. IMPRESSION: 1. No ultrasound evidence of cholecystitis. No common bile duct dilatation. 2. Fatty liver. Signed: Josy Albert MD Report Verified Date/Time:06/01/2018 14:19:45 Reading Location: [address] Transitional Reading Room Procedure Note Interface, External Ris In - 06/01/2018 2:22 PM CDT FINAL REPORT ULTRASOUND RIGHT UPPER QUADRANT OF THE ABDOMEN HISTORY: Status post ERCP, cholangitis COMPARISON: No comparison cross-sectional imaging of the abdomen TECHNIQUE: Real-time ultrasound of the right upper quadrant of the abdomen was performed. Sonographic windows were limited by bowel gas and patient body habitus. FINDINGS: The liver is normal in size. Hepatic length is 15.8 cm. Hepatic echogenicity appears increased, which may reflect fatty infiltration. No hepatic mass lesion is visualized. The gallbladder demonstrates normal wall thickness with no pericholecystic fluid. No sonographic Olivera sign was elicited. No gallstones. The common bile duct is normal in caliber, measuring 3.6 mm. The main portal vein is normal in caliber, measuring 11 mm. Pancreas cannot be visualized with ultrasound. No ascites or pleural effusion. The right kidney is normal in size, contour, and echogenicity. The right kidney measures 10.1 cm in length. No hydronephrosis, mass lesion or stones are visualized. No abnormalities are seen in the abdominal aorta, inferior vena cava, or hepatic veins. The mid to distal abdominal aorta were obscured by bowel gas. The left hepatic vein was obscured. IMPRESSION: 1. No ultrasound evidence of cholecystitis. No common bile duct dilatation. 2. Fatty liver. Signed: Josy Albert MD Report Verified Date/Time: 06/01/2018 14:19:45 Reading Location: [address] Transitional Reading Room Performing Organization Address City/State/Zipcode Phone Number [facility] [place] ERCP (05/31/2018 2:22 PM CDT) Specimen Narrative Performed At PROCEDURE PERFORMED IN O.R. - PLEASE REFER TO THE INTRAOPERATIVE GE RIS REPORT. Procedure Note Interface, External Ris In - 06/06/2018 6:30 PM CDT PROCEDURE PERFORMED IN O.R. - PLEASE REFER TO THE INTRAOPERATIVE REPORT. Performing Organization Address [facility] Phone Number [facility] Troponin I (05/30/2018 8:44 PM CDT) Troponin I <0.01 0.00 - 0.03 ng/mL [facility] Specimen Blood Narrative Performed At Troponin I (TnI) levels must be interpreted [facility] in the context of the presenting symptoms and the clinical findings. Elevated TnI levels indicate myocardial damage, but are not specific for ischemic heart disease. Elevated TnI levels are seen in patients with other cardiac conditions (including myocarditis and congestive heart failure), and slight TnI elevations occur in patients with other conditions, including sepsis, renal failure, acidosis, acute neurological disease, and persistent tachyarrhythmia. Performing Organization Address [facility] Cent[facility]ode Phone Number [address] [address] C[place] Lipase (05/30/2018 8:44 PM CDT) Lipase 227 (H) 8 - 78 U/L [facility] Specimen Blood Narrative Performed At Specimen moderately icteric [facility] Performing Organization Address City/State/Zipcode Phone Number [address] [address] C[place] Gamma Glutamyl Transferase (GGT) (05/30/2018 8:44 PM CDT) GGT 55 9 - 64 U/L [facility] Specimen Blood Narrative Performed At Specimen moderately icteric [facility] Performing Organization Address City/[facility] Cent[facility]ode Phone Number [facility] [address] [place] [address] [place] Lipid panel (05/30/2018 8:44 PM CDT) Triglycerides 102 mg/dL [facility] Cholesterol 101 mg/dL [facility] HDL 17 mg/dL [facility] LDL Calculated 64 mg/dL [facility] Specimen Blood Narrative Performed At Triglyceride Reference Range: [facility] Low Risk <150 [id number] High Risk 200-499 Very High Risk>=500 Cholesterol Reference Range: Low Risk <200 [id number] High Risk>240 HDL Cholesterol Reference Range: Low Risk >=60 High Risk <40 LDL Cholesterol Reference Range: Optimal<100 Near [id number] Very High >=190 Specimen moderately icteric Performing Organization Address City/[facility]/Zipcode Phone Number [facility] [address] [place] [address] [phone] [place] after 07/08/2017 Insurance Payer Benefit Plan / Group Subscriber ID Type Phone Address MEDICAID - MEDICAID MEDICAID [employer] xxxxxxxxx Medicaid [employer] CARE Non-Contracted Advance Directives For more information, please contact:[address] [phone] Code Status Date Activated Date Inactivated Comments Full Code 05/30/2018 8:02 PM 06/16/2018 12:50 PM This code status was determined by: Patient
--- OUTSIDE RECORDS SUMMARY | 2018-07-09 13:36 | XMS REPORT ---
:1990 [facility] [address] [place] [address] Care Team Providers Name Role Phone JETT ECLAYA Unavailable Unavailable Problems This patient has no known problems. Allergies, Adverse Reactions, Alerts This patient has no known allergies or adverse reactions. Medications This patient has no known medications. Results Test Description Test Time Test Comments Text Results Atomic Results Result Comments BETA-2 GLYCOPROTEIN ANTIBODIES 2018-06-24 08:02:00 Test Item Value Reference Range Comments B2 GLYCOPROTEIN AUTOVERIFICATION Refer to individual B2-Glycoprotein IgG, COMPONENT (test mzbx=5275) IgM and IgA results. [id number] 07:34:00 Test Item Value Reference Range Comments MAGNESIUM (BEAKER) (test iflz=315) 1.6 mg/dL 1.6-2.6 BASIC METABOLIC [id number] 07:34:00 Test Item Value Reference Range Comments SODIUM (BEAKER) (test 138 meq/L 136-145 bfbd=484) POTASSIUM (BEAKER) (test 4.4 meq/L 3.5-5.1 mbbz=047) CHLORIDE (BEAKER) (test 102 meq/L 98-107 rrxw=554) CO2 (BEAKER) (test 24 meq/L 22-29 jist=566) BLOOD UREA NITROGEN 7 mg/dL 7-21 (BEAKER) (test vhse=006) CREATININE (BEAKER) (test 0.80 mg/dL 0.57-1.25 chxq=485) GLUCOSE RANDOM (BEAKER) 93 mg/dL 70-105 (test lnit=555) CALCIUM (BEAKER) (test 9.6 mg/dL 8.4-10.2 jmsr=087) EGFR (BEAKER) (test 114 mL/min/1.73 sq m ESTIMATED GFR IS NOT klbv=1776) ACCURATE CREATININE CLEARANCE IN PREDICTING GLOMERULAR FILTRATION RATE. ESTIMATED GFR IS NOT APPLICABLE FOR DIALYSIS PATIENTS. HEPATIC FUNCTION [id number] 07:34:00 Test Item Value Reference Range Comments TOTAL PROTEIN (BEAKER) (test csxs=604) 7.6 gm/dL 6.0-8.3 ALBUMIN (BEAKER) (test jvda=6724) 3.3 g/dL 3.5-5.0 BILIRUBIN TOTAL (BEAKER) (test whkx=858) 0.7 mg/dL 0.2-1.2 BILIRUBIN DIRECT (BEAKER) (test jumt=104) 0.5 mg/dL 0.1-0.5 ALKALINE PHOSPHATASE (BEAKER) (test pffq=489) 105 U/L 40-150 AST (SGOT) (BEAKER) (test mmfk=737) 38 U/L 5-34 ALT (SGPT) (BEAKER) (test qbbd=750) 41 U/L 6-55 [id number] 07:23:00 Test Item Value Reference Range Comments PROTIME (BEAKER) (test qhhl=321) 14.8 seconds 11.7-14.7 INR (BEAKER) (test ddlk=021) 1.2 <=5.9 PARTIAL THROMBOPLASTIN TIME (BEAKER) (test 33.8 seconds 22.5-36.0 ytlw=277) RECOMMENDED COUMADIN/WARFARIN INR THERAPY RANGESSTANDARD DOSE: 2.0 - 3.0 Includes: PROPHYLAXIS forvenous thrombosis, systemic embolization; TREATMENT for venous thrombosis and/or pulmonary embolus.HIGH RISK: Target INR is 2.5-3.5 for patients with mechanical heart valves.CBC W/PLT COUNT & AUTO [id number] 07:19:00 Test Item Value Reference Range Comments WHITE BLOOD CELL COUNT (BEAKER) (test shve=610) 11.2 K/ L 3.5-10.5 RED BLOOD CELL COUNT (BEAKER) (test khqa=560) 4.39 M/ L 4.63-6.08 HEMOGLOBIN (BEAKER) (test uqkn=576) 12.7 GM/DL 13.7-17.5 HEMATOCRIT (BEAKER) (test uuqr=401) 40.5 % 40.1-51.0 MEAN CORPUSCULAR VOLUME (BEAKER) (test gfuk=537) 92.3 fL 79.0-92.2 MEAN CORPUSCULAR HEMOGLOBIN (BEAKER) (test 28.9 pg 25.7-32.2 ohol=417) MEAN CORPUSCULAR HEMOGLOBIN CONC (BEAKER) (test 31.4 GM/DL 32.3-36.5 ihea=140) RED CELL DISTRIBUTION WIDTH (BEAKER) (test 13.4 % 11.6-14.4 tbcb=943) PLATELET COUNT (BEAKER) (test gkez=975) 570 K/CU MM 150-450 MEAN PLATELET VOLUME (BEAKER) (test xlpw=893) 10.5 fL 9.4-12.4 NUCLEATED RED BLOOD CELLS (BEAKER) (test 0 /100 WBC 0-0 vxwd=434) NEUTROPHILS RELATIVE PERCENT (BEAKER) (test 64 % pfha=385) LYMPHOCYTES RELATIVE PERCENT (BEAKER) (test 20 % cdgs=359) MONOCYTES RELATIVE PERCENT (BEAKER) (test 9 % eaie=625) EOSINOPHILS RELATIVE PERCENT (BEAKER) (test 5 % ccoi=044) BASOPHILS RELATIVE PERCENT (BEAKER) (test 1 % orxe=888) NEUTROPHILS ABSOLUTE COUNT (BEAKER) (test 7.13 K/ L 1.78-5.38 ovja=406) LYMPHOCYTES ABSOLUTE COUNT (BEAKER) (test 2.20 K/ L 1.32-3.57 nsrd=685) MONOCYTES ABSOLUTE COUNT (BEAKER) (test 0.95 K/ L 0.30-0.82 kwbg=725) EOSINOPHILS ABSOLUTE COUNT (BEAKER) (test 0.59 K/ L 0.04-0.54 koob=641) BASOPHILS ABSOLUTE COUNT (BEAKER) (test 0.14 K/ L 0.01-0.08 itcj=556) IMMATURE GRANULOCYTES-RELATIVE PERCENT (BEAKER) 2 % 0-1 (test tfpm=9724) LUPUS ANTICOAGULANT SCREEN WITH REFLEX TO [id number] 09:29:00 Test Item Value Reference Range Comments DRVV SCREEN RATIO (BEAKER) 1.39 <1.20 (test mkmm=6322) DRVV CONFIRM RATIO (test 1.21 xlwd=1897) DRVV INTERPRETATION (BEAKER) Positive screen for Lupus (test vpba=4876) Anticoagulant with hexagonal phospholipid confirmation. Suggest repeat testing in 12 weeks and when patient not receiving anticoagulant therapy. PROTIME (BEAKER) (test 19.6 seconds 11.7-14.7 gmvt=603) INR (BEAKER) (test nnnz=020) 1.7 <=5.9 PARTIAL THROMBOPLASTIN TIME 57.5 seconds 22.5-36.0 (BEAKER) (test dvue=183) PTT-LA (BEAKER) (test 61.5 32.0-41.8 suua=[id number]) [id number]-163 (BEAKER) Christy Smith MD (test qumi=3169) (electronic signature) [id number] 08:06:00 Test Item Value Reference Range Comments MAGNESIUM (BEAKER) (test gkdg=382) 1.7 mg/dL 1.6-2.6 BASIC METABOLIC [id number] 08:06:00 Test Item Value Reference Range Comments SODIUM (BEAKER) (test 135 meq/L 136-145 bonb=507) POTASSIUM (BEAKER) (test 4.1 meq/L 3.5-5.1 usqy=179) CHLORIDE (BEAKER) (test 101 meq/L 98-107 reeg=282) CO2 (BEAKER) (test 24 meq/L 22-29 ufrx=367) BLOOD UREA NITROGEN 6 mg/dL 7-21 (BEAKER) (test sccm=442) CREATININE (BEAKER) (test 0.81 mg/dL 0.57-1.25 vavp=244) GLUCOSE RANDOM (BEAKER) 101 mg/dL 70-105 (test vlok=674) CALCIUM (BEAKER) (test 9.3 mg/dL 8.4-10.2 tstc=462) EGFR (BEAKER) (test 113 mL/min/1.73 sq m ESTIMATED GFR IS NOT nauk=2063) ACCURATE CREATININE CLEARANCE IN PREDICTING GLOMERULAR FILTRATION RATE. ESTIMATED GFR IS NOT APPLICABLE FOR DIALYSIS PATIENTS. HEPATIC FUNCTION [id number] 08:06:00 Test Item Value Reference Range Comments TOTAL PROTEIN (BEAKER) (test kbrc=035) 7.6 gm/dL 6.0-8.3 ALBUMIN (BEAKER) (test ewkz=7166) 3.2 g/dL 3.5-5.0 BILIRUBIN TOTAL (BEAKER) (test ncsv=878) 0.7 mg/dL 0.2-1.2 BILIRUBIN DIRECT (BEAKER) (test orvj=232) 0.5 mg/dL 0.1-0.5 ALKALINE PHOSPHATASE (BEAKER) (test lcdd=230) 108 U/L 40-150 AST (SGOT) (BEAKER) (test uwiu=680) 37 U/L 5-34 ALT (SGPT) (BEAKER) (test ccps=204) 39 U/L 6-55 CBC W/PLT COUNT & AUTO [id number] 07:58:00 Test Item Value Reference Range Comments WHITE BLOOD CELL COUNT (BEAKER) (test jlbs=218) 12.1 K/ L 3.5-10.5 RED BLOOD CELL COUNT (BEAKER) (test avap=838) 4.28 M/ L 4.63-6.08 HEMOGLOBIN (BEAKER) (test xsud=730) 12.3 GM/DL 13.7-17.5 HEMATOCRIT (BEAKER) (test tyec=289) 38.9 % 40.1-51.0 MEAN CORPUSCULAR VOLUME (BEAKER) (test dkot=567) 90.9 fL 79.0-92.2 MEAN CORPUSCULAR HEMOGLOBIN (BEAKER) (test 28.7 pg 25.7-32.2 axqm=042) MEAN CORPUSCULAR HEMOGLOBIN CONC (BEAKER) (test 31.6 GM/DL 32.3-36.5 kymh=450) RED CELL DISTRIBUTION WIDTH (BEAKER) (test 13.3 % 11.6-14.4 hcyx=240) PLATELET COUNT (BEAKER) (test kxmj=945) 624 K/CU MM 150-450 MEAN PLATELET VOLUME (BEAKER) (test vvsg=884) 10.4 fL 9.4-12.4 NUCLEATED RED BLOOD CELLS (BEAKER) (test 0 /100 WBC 0-0 qszb=312) NEUTROPHILS RELATIVE PERCENT (BEAKER) (test 66 % hxal=569) LYMPHOCYTES RELATIVE PERCENT (BEAKER) (test 18 % ajyt=621) MONOCYTES RELATIVE PERCENT (BEAKER) (test 9 % vfpk=835) EOSINOPHILS RELATIVE PERCENT (BEAKER) (test 5 % rhqb=589) BASOPHILS RELATIVE PERCENT (BEAKER) (test 1 % odls=508) NEUTROPHILS ABSOLUTE COUNT (BEAKER) (test 7.94 K/ L 1.78-5.38 nxmk=692) LYMPHOCYTES ABSOLUTE COUNT (BEAKER) (test 2.11 K/ L 1.32-3.57 hsmf=412) MONOCYTES ABSOLUTE COUNT (BEAKER) (test 1.13 K/ L 0.30-0.82 yetb=755) EOSINOPHILS ABSOLUTE COUNT (BEAKER) (test 0.60 K/ L 0.04-0.54 auju=411) BASOPHILS ABSOLUTE COUNT (BEAKER) (test 0.15 K/ L 0.01-0.08 cvgr=531) IMMATURE GRANULOCYTES-RELATIVE PERCENT (BEAKER) 1 % 0-1 (test whtn=0549) PROTHROMBIN [id number] 07:26:00 Test Item Value Reference Range Comments PROTIME (BEAKER) (test deto=315) 14.5 seconds 11.7-14.7 INR (BEAKER) (test fuba=426) 1.2 <=5.9 RECOMMENDED COUMADIN/WARFARIN INR THERAPY RANGESSTANDARD DOSE: 2.0 - 3.0 Includes: PROPHYLAXIS forvenous thrombosis, systemic embolization; TREATMENT for venous thrombosis and/or pulmonary embolus.HIGH RISK: Target INR is 2.5-3.5 for patients with mechanical heart valves.PT/[id number] 07:26:00 Test Item Value Reference Range Comments PROTIME (BEAKER) (test wkvn=168) 14.5 seconds 11.7-14.7 INR (BEAKER) (test kwxe=719) 1.2 <=5.9 PARTIAL THROMBOPLASTIN TIME (BEAKER) (test 38.9 seconds 22.5-36.0 lwcz=393) RECOMMENDED COUMADIN/WARFARIN INR THERAPY RANGESSTANDARD DOSE: 2.0 - 3.0 Includes: PROPHYLAXIS forvenous thrombosis, systemic embolization; TREATMENT for venous thrombosis and/or pulmonary embolus.HIGH RISK: Target INR is 2.5-3.5 for patients with mechanical heart valves.HEXAGONAL [id number] 14:07 :00 Test Item Value Reference Range Comments HEXAGONAL PHOSPHOLIPID (BEAKER) (test kmdy=0336) Positive 1:1 MIXING STUDY, [id number] 09:07:00 Test Item Value Reference Range Comments PROTIME (BEAKER) (test qyvy=313) 19.6 seconds 11.7-14.7 PARTIAL THROMBOPLASTIN TIME (BEAKER) (test 57.5 seconds 22.5-36.0 hyit=814) PT 1/1 MIX (BEAKER) (test wgcs=1753) 14.4 SECS 11.7-14.7 PTT 02/05 MIX (BEAKER) (test qguo=3016) 41.9 SECS 22.5-36.0 PT/[id number] 07:05:00 Test Item Value Reference Range Comments PROTIME (BEAKER) (test ekij=621) 16.9 seconds 11.7-14.7 INR (BEAKER) (test zssy=145) 1.4 <=5.9 PARTIAL THROMBOPLASTIN TIME (BEAKER) (test 43.7 seconds 22.5-36.0 wcyn=248) RECOMMENDED COUMADIN/WARFARIN INR THERAPY RANGESSTANDARD DOSE: 2.0 - 3.0 Includes: PROPHYLAXIS forvenous thrombosis, systemic embolization; TREATMENT for venous thrombosis and/or pulmonary embolus.HIGH RISK: Target INR is 2.5-3.5 for patients with mechanical heart valves.PROTHROMBIN TIME/[id number] 07:04: 00 Test Item Value Reference Range Comments PROTIME (BEAKER) (test ngtm=974) 16.9 seconds 11.7-14.7 INR (BEAKER) (test ustz=325) 1.4 <=5.9 RECOMMENDED COUMADIN/WARFARIN INR THERAPY RANGESSTANDARD DOSE: 2.0 - 3.0 Includes: PROPHYLAXIS forvenous thrombosis, systemic embolization; TREATMENT for venous thrombosis and/or pulmonary embolus.HIGH RISK: Target INR is 2.5-3.5 for patients with mechanical heart valves.[id number] 06:49:00 Test Item Value Reference Range Comments MAGNESIUM (BEAKER) (test nypy=796) 1.7 mg/dL 1.6-2.6 BASIC METABOLIC [id number] 06:49:00 Test Item Value Reference Range Comments SODIUM (BEAKER) (test 135 meq/L 136-145 jcwl=236) POTASSIUM (BEAKER) (test 4.2 meq/L 3.5-5.1 dshf=255) CHLORIDE (BEAKER) (test 101 meq/L 98-107 abca=020) CO2 (BEAKER) (test 25 meq/L 22-29 unin=502) BLOOD UREA NITROGEN 6 mg/dL 7-21 (BEAKER) (test hynx=150) CREATININE (BEAKER) (test 0.73 mg/dL 0.57-1.25 wtlq=673) GLUCOSE RANDOM (BEAKER) 96 mg/dL 70-105 (test aysc=589) CALCIUM (BEAKER) (test 9.0 mg/dL 8.4-10.2 pswh=914) EGFR (BEAKER) (test 127 mL/min/1.73 sq m ESTIMATED GFR IS NOT nrnm=2449) ACCURATE CREATININE CLEARANCE IN PREDICTING GLOMERULAR FILTRATION RATE. ESTIMATED GFR IS NOT APPLICABLE FOR DIALYSIS PATIENTS. HEPATIC FUNCTION [id number] 06:49:00 Test Item Value Reference Range Comments TOTAL PROTEIN (BEAKER) (test dmbq=776) 7.3 gm/dL 6.0-8.3 ALBUMIN (BEAKER) (test lueo=8590) 3.0 g/dL 3.5-5.0 BILIRUBIN TOTAL (BEAKER) (test wwdk=101) 0.8 mg/dL 0.2-1.2 BILIRUBIN DIRECT (BEAKER) (test lhde=732) 0.5 mg/dL 0.1-0.5 ALKALINE PHOSPHATASE (BEAKER) (test yryh=334) 108 U/L 40-150 AST (SGOT) (BEAKER) (test hvic=471) 40 U/L 5-34 ALT (SGPT) (BEAKER) (test gzli=410) 42 U/L 6-55 CBC W/PLT COUNT & AUTO [id number] 06:36:00 Test Item Value Reference Range Comments WHITE BLOOD CELL COUNT (BEAKER) (test tqdq=586) 10.1 K/ L 3.5-10.5 RED BLOOD CELL COUNT (BEAKER) (test wfsr=030) 4.19 M/ L 4.63-6.08 HEMOGLOBIN (BEAKER) (test ybff=924) 12.1 GM/DL 13.7-17.5 HEMATOCRIT (BEAKER) (test axkw=677) 38.7 % 40.1-51.0 MEAN CORPUSCULAR VOLUME (BEAKER) (test noxk=479) 92.4 fL 79.0-92.2 MEAN CORPUSCULAR HEMOGLOBIN (BEAKER) (test 28.9 pg 25.7-32.2 xxej=715) MEAN CORPUSCULAR HEMOGLOBIN CONC (BEAKER) (test 31.3 GM/DL 32.3-36.5 sfpt=867) RED CELL DISTRIBUTION WIDTH (BEAKER) (test 13.3 % 11.6-14.4 dvfe=449) PLATELET COUNT (BEAKER) (test qalo=199) 582 K/CU MM 150-450 MEAN PLATELET VOLUME (BEAKER) (test dyvv=785) 10.7 fL 9.4-12.4 NUCLEATED RED BLOOD CELLS (BEAKER) (test 0 /100 WBC 0-0 sbdw=973) NEUTROPHILS RELATIVE PERCENT (BEAKER) (test 66 % puer=717) LYMPHOCYTES RELATIVE PERCENT (BEAKER) (test 18 % tbus=860) MONOCYTES RELATIVE PERCENT (BEAKER) (test 8 % seke=269) EOSINOPHILS RELATIVE PERCENT (BEAKER) (test 5 % xtgf=789) BASOPHILS RELATIVE PERCENT (BEAKER) (test 1 % pcty=732) NEUTROPHILS ABSOLUTE COUNT (BEAKER) (test 6.68 K/ L 1.78-5.38 bmav=314) LYMPHOCYTES ABSOLUTE COUNT (BEAKER) (test 1.80 K/ L 1.32-3.57 hkey=646) MONOCYTES ABSOLUTE COUNT (BEAKER) (test 0.81 K/ L 0.30-0.82 kzan=093) EOSINOPHILS ABSOLUTE COUNT (BEAKER) (test 0.52 K/ L 0.04-0.54 sxjr=358) BASOPHILS ABSOLUTE COUNT (BEAKER) (test 0.11 K/ L 0.01-0.08 cgyy=975) IMMATURE GRANULOCYTES-RELATIVE PERCENT (BEAKER) 1 % 0-1 (test rdtm=6214) CARDIOLIPIN ANTIBODIES, IGG AND [id number] 06:24:00 Test Item Value Reference Range Comments ANTICARDIOLIPIN IGG ANTIBODY (BEAKER) (test < GPL <20.0 ewis=671) ANTICARDIOLIPIN IGM ANTIBODY (BEAKER) (test 0.2 MPL <20.0 ifzo=212) Anticardiolipin IgG Result Interpretation: <20.0 GPL Normal>/=20.0 GPL PositiveAnticardiolipin IgM Result Interpretation: <20.0 MPL Normal>/= 20.0 MPL PositiveTHROMBIN [id number] 13:45:00 Test Item Value Reference Range Comments THROMBIN TIME (BEAKER) (test mvzl=886) 17.2 secs 13.8-20.0 [id number] 12:46:00 Test Item Value Reference Range Comments FIBRINOGEN LEVEL (BEAKER) (test ppms=018) 762 mg/dl 225-434 [id number] 10:48:00 Test Item Value Reference Range Comments MAGNESIUM (BEAKER) (test dknh=692) 1.7 mg/dL 1.6-2.6 BASIC METABOLIC [id number] 10:48:00 Test Item Value Reference Range Comments SODIUM (BEAKER) (test 139 meq/L 136-145 iuat=345) POTASSIUM (BEAKER) (test 4.2 meq/L 3.5-5.1 hdck=852) CHLORIDE (BEAKER) (test 102 meq/L 98-107 rdfu=075) CO2 (BEAKER) (test 26 meq/L 22-29 gebe=567) BLOOD UREA NITROGEN 6 mg/dL 7-21 (BEAKER) (test czbh=082) CREATININE (BEAKER) (test 0.75 mg/dL 0.57-1.25 mjos=739) GLUCOSE RANDOM (BEAKER) 160 mg/dL 70-105 (test ylrk=389) CALCIUM (BEAKER) (test 9.3 mg/dL 8.4-10.2 irkd=332) EGFR (BEAKER) (test 123 mL/min/1.73 sq m ESTIMATED GFR IS NOT yjhc=0816) ACCURATE CREATININE CLEARANCE IN PREDICTING GLOMERULAR FILTRATION RATE. ESTIMATED GFR IS NOT APPLICABLE FOR DIALYSIS PATIENTS. HEPATIC FUNCTION [id number] 10:48:00 Test Item Value Reference Range Comments TOTAL PROTEIN (BEAKER) (test pihc=242) 7.3 gm/dL 6.0-8.3 ALBUMIN (BEAKER) (test nlof=0366) 3.0 g/dL 3.5-5.0 BILIRUBIN TOTAL (BEAKER) (test lddq=506) 0.7 mg/dL 0.2-1.2 BILIRUBIN DIRECT (BEAKER) (test lyzx=177) 0.5 mg/dL 0.1-0.5 ALKALINE PHOSPHATASE (BEAKER) (test trqo=542) 112 U/L 40-150 AST (SGOT) (BEAKER) (test dkxj=043) 47 U/L 5-34 ALT (SGPT) (BEAKER) (test zgqs=142) 50 U/L 6-55 [id number] 06:40:00 Test Item Value Reference Range Comments PROTIME (BEAKER) (test mzcx=735) 18.8 seconds 11.7-14.7 INR (BEAKER) (test jebq=038) 1.7 <=5.9 PARTIAL THROMBOPLASTIN TIME (BEAKER) (test 52.3 seconds 22.5-36.0 xmoy=386) RECOMMENDED COUMADIN/WARFARIN INR THERAPY RANGESSTANDARD DOSE: 2.0 - 3.0 Includes: PROPHYLAXIS forvenous thrombosis, systemic embolization; TREATMENT for venous thrombosis and/or pulmonary embolus.HIGH RISK: Target INR is 2.5-3.5 for patients with mechanical heart valves.PROTHROMBIN [id number] 06:39: 00 Test Item Value Reference Range Comments PROTIME (BEAKER) (test erto=330) 18.8 seconds 11.7-14.7 INR (BEAKER) (test iqma=462) 1.7 <=5.9 RECOMMENDED COUMADIN/WARFARIN INR THERAPY RANGESSTANDARD DOSE: 2.0 - 3.0 Includes: PROPHYLAXIS forvenous thrombosis, systemic embolization; TREATMENT for venous thrombosis and/or pulmonary embolus.HIGH RISK: Target INR is 2.5-3.5 for patients with mechanical heart valves.CBC W/PLT COUNT & AUTO [id number] 06:34:00 Test Item Value Reference Range Comments WHITE BLOOD CELL COUNT (BEAKER) (test ujfj=799) 9.3 K/ L 3.5-10.5 RED BLOOD CELL COUNT (BEAKER) (test budz=295) 3.78 M/ L 4.63-6.08 HEMOGLOBIN (BEAKER) (test gtgs=762) 11.0 GM/DL 13.7-17.5 HEMATOCRIT (BEAKER) (test ryal=645) 35.0 % 40.1-51.0 MEAN CORPUSCULAR VOLUME (BEAKER) (test ufke=711) 92.6 fL 79.0-92.2 MEAN CORPUSCULAR HEMOGLOBIN (BEAKER) (test 29.1 pg 25.7-32.2 qebd=218) MEAN CORPUSCULAR HEMOGLOBIN CONC (BEAKER) (test 31.4 GM/DL 32.3-36.5 uiod=517) RED CELL DISTRIBUTION WIDTH (BEAKER) (test 13.5 % 11.6-14.4 vxqn=794) PLATELET COUNT (BEAKER) (test kkiv=959) 517 K/CU MM 150-450 MEAN PLATELET VOLUME (BEAKER) (test pxmx=601) 10.5 fL 9.4-12.4 NUCLEATED RED BLOOD CELLS (BEAKER) (test 0 /100 WBC 0-0 rbwm=670) NEUTROPHILS RELATIVE PERCENT (BEAKER) (test 64 % cfbv=263) LYMPHOCYTES RELATIVE PERCENT (BEAKER) (test 20 % rdbl=197) MONOCYTES RELATIVE PERCENT (BEAKER) (test 9 % vmrd=743) EOSINOPHILS RELATIVE PERCENT (BEAKER) (test 6 % iigy=654) BASOPHILS RELATIVE PERCENT (BEAKER) (test 1 % hbvp=861) NEUTROPHILS ABSOLUTE COUNT (BEAKER) (test 5.90 K/ L 1.78-5.38 hjrc=655) LYMPHOCYTES ABSOLUTE COUNT (BEAKER) (test 1.84 K/ L 1.32-3.57 fnus=609) MONOCYTES ABSOLUTE COUNT (BEAKER) (test 0.82 K/ L 0.30-0.82 xqrj=832) EOSINOPHILS ABSOLUTE COUNT (BEAKER) (test 0.53 K/ L 0.04-0.54 gnjg=259) BASOPHILS ABSOLUTE COUNT (BEAKER) (test 0.09 K/ L 0.01-0.08 ydua=927) IMMATURE GRANULOCYTES-RELATIVE PERCENT (BEAKER) 1 % 0-1 (test qmez=8833) [id number] 06:48:00 Test Item Value Reference Range Comments MAGNESIUM (BEAKER) (test xcsu=863) 1.9 mg/dL 1.6-2.6 BASIC METABOLIC [id number] 06:48:00 Test Item Value Reference Range Comments SODIUM (BEAKER) (test 137 meq/L 136-145 dxod=932) POTASSIUM (BEAKER) (test 4.0 meq/L 3.5-5.1 frrh=400) CHLORIDE (BEAKER) (test 102 meq/L 98-107 rdfm=641) CO2 (BEAKER) (test 29 meq/L 22-29 ncic=990) BLOOD UREA NITROGEN 6 mg/dL 7-21 (BEAKER) (test vexp=605) CREATININE (BEAKER) (test 0.69 mg/dL 0.57-1.25 zzqt=515) GLUCOSE RANDOM (BEAKER) 116 mg/dL 70-105 (test xrtx=048) CALCIUM (BEAKER) (test 8.7 mg/dL 8.4-10.2 gkoo=688) EGFR (BEAKER) (test 136 mL/min/1.73 sq m ESTIMATED GFR IS NOT csri=5827) ACCURATE CREATININE CLEARANCE IN PREDICTING GLOMERULAR FILTRATION RATE. ESTIMATED GFR IS NOT APPLICABLE FOR DIALYSIS PATIENTS. HEPATIC FUNCTION [id number] 06:48:00 Test Item Value Reference Range Comments TOTAL PROTEIN (BEAKER) (test exkf=834) 6.2 gm/dL 6.0-8.3 ALBUMIN (BEAKER) (test zkra=3468) 2.5 g/dL 3.5-5.0 BILIRUBIN TOTAL (BEAKER) (test bpul=714) 0.6 mg/dL 0.2-1.2 BILIRUBIN DIRECT (BEAKER) (test ffzf=962) 0.5 mg/dL 0.1-0.5 ALKALINE PHOSPHATASE (BEAKER) (test nylp=011) 102 U/L 40-150 AST (SGOT) (BEAKER) (test ihuh=932) 48 U/L 5-34 ALT (SGPT) (BEAKER) (test gmva=493) 50 U/L 6-55 [id number] 06:31:00 Test Item Value Reference Range Comments PROTIME (BEAKER) (test tinb=162) 21.1 seconds 11.7-14.7 INR (BEAKER) (test zvih=820) 1.9 <=5.9 PARTIAL THROMBOPLASTIN TIME (BEAKER) (test 58.0 seconds 22.5-36.0 nfne=146) RECOMMENDED COUMADIN/WARFARIN INR THERAPY RANGESSTANDARD DOSE: 2.0 - 3.0 Includes: PROPHYLAXIS forvenous thrombosis, systemic embolization; TREATMENT for venous thrombosis and/or pulmonary embolus.HIGH RISK: Target INR is 2.5-3.5 for patients with mechanical heart valves.PROTHROMBIN TIME/[id number] 06:30: 00 Test Item Value Reference Range Comments PROTIME (BEAKER) (test tlca=529) 21.1 seconds 11.7-14.7 INR (BEAKER) (test owtb=786) 1.9 <=5.9 RECOMMENDED COUMADIN/WARFARIN INR THERAPY RANGESSTANDARD DOSE: 2.0 - 3.0 Includes: PROPHYLAXIS forvenous thrombosis, systemic embolization; TREATMENT for venous thrombosis and/or pulmonary embolus.HIGH RISK: Target INR is 2.5-3.5 for patients with mechanical heart valves.CBC W/PLT COUNT & AUTO [id number] 06:11:00 Test Item Value Reference Range Comments WHITE BLOOD CELL COUNT (BEAKER) (test ltah=103) 10.3 K/ L 3.5-10.5 RED BLOOD CELL COUNT (BEAKER) (test zrme=153) 3.56 M/ L 4.63-6.08 HEMOGLOBIN (BEAKER) (test qbsu=621) 10.4 GM/DL 13.7-17.5 HEMATOCRIT (BEAKER) (test tflj=540) 33.3 % 40.1-51.0 MEAN CORPUSCULAR VOLUME (BEAKER) (test ywfk=828) 93.5 fL 79.0-92.2 MEAN CORPUSCULAR HEMOGLOBIN (BEAKER) (test 29.2 pg 25.7-32.2 ckde=204) MEAN CORPUSCULAR HEMOGLOBIN CONC (BEAKER) (test 31.2 GM/DL 32.3-36.5 zuak=400) RED CELL DISTRIBUTION WIDTH (BEAKER) (test 13.7 % 11.6-14.4 ogki=464) PLATELET COUNT (BEAKER) (test gctw=403) 487 K/CU MM 150-450 MEAN PLATELET VOLUME (BEAKER) (test yjuk=347) 10.6 fL 9.4-12.4 NUCLEATED RED BLOOD CELLS (BEAKER) (test 0 /100 WBC 0-0 gvuj=904) NEUTROPHILS RELATIVE PERCENT (BEAKER) (test 66 % owyx=765) LYMPHOCYTES RELATIVE PERCENT (BEAKER) (test 18 % qits=052) MONOCYTES RELATIVE PERCENT (BEAKER) (test 10 % ndlc=709) EOSINOPHILS RELATIVE PERCENT (BEAKER) (test 4 % nmyg=839) BASOPHILS RELATIVE PERCENT (BEAKER) (test 1 % elez=991) NEUTROPHILS ABSOLUTE COUNT (BEAKER) (test 6.87 K/ L 1.78-5.38 hxma=263) LYMPHOCYTES ABSOLUTE COUNT (BEAKER) (test 1.81 K/ L 1.32-3.57 ybds=613) MONOCYTES ABSOLUTE COUNT (BEAKER) (test 1.00 K/ L 0.30-0.82 jdiw=554) EOSINOPHILS ABSOLUTE COUNT (BEAKER) (test 0.45 K/ L 0.04-0.54 nyae=352) BASOPHILS ABSOLUTE COUNT (BEAKER) (test 0.06 K/ L 0.01-0.08 uekv=590) IMMATURE GRANULOCYTES-RELATIVE PERCENT (BEAKER) 1 % 0-1 (test awnx=1130) RAD, CHEST, 1 VIEW, NON [id number] 18:34:00Reason for exam:->SOBShould this be performed at the bedside?->YesFINAL REPORT TECHNIQUE: Frontal view of the chest. INDICATION: 28-year-old man with shortness of breath. COMPARISON: Chest radiograph 06/07/2018. FINDINGS: LINES/ TUBES: Unchanged pigtail catheter projects over the left upper quadrant. LUNGS: Persistent low lung volumes. Decreasedretrocardiac opacity. PLEURA: No pneumothorax or significant pleural effusion. HEART AND MEDIASTINUM: The cardiomediastinal silhouette is unchanged. SOFT TISSUES AND BONES: Unremarkable. IMPRESSION:Decreased retrocardiac opacity. Otherwise, no significant change since 06/07/2018. Signed: Adán Herrmann MDReport Verified Date/Time: 06/11/2018 18:34:14 Reading Location: [address] Consult Reading Room B-TYPE NATRIURETIC FACTOR (BNP)2018-06-11 15:45:00 Test Item Value Reference Range Comments B-TYPE NATRIURETIC PEPTIDE (BEAKER) (test lbwr=220) < pg/mL 0-100 PT/[id number] 06:36:00 Test Item Value Reference Range Comments PROTIME (BEAKER) (test akyj=143) 21.5 seconds 11.7-14.7 INR (BEAKER) (test mile=891) 2.0 <=5.9 PARTIAL THROMBOPLASTIN TIME (BEAKER) (test 60.3 seconds 22.5-36.0 uoco=669) RECOMMENDED COUMADIN/WARFARIN INR THERAPY RANGESSTANDARD DOSE: 2.0 - 3.0 Includes: PROPHYLAXIS forvenous thrombosis, systemic embolization; TREATMENT for venous thrombosis and/or pulmonary embolus.HIGH RISK: Target INR is 2.5-3.5 for patients with mechanical heart valves.PROTHROMBIN TIME/[id number] 06:35: 00 Test Item Value Reference Range Comments PROTIME (BEAKER) (test rvtm=298) 21.5 seconds 11.7-14.7 INR (BEAKER) (test egdy=651) 2.0 <=5.9 RECOMMENDED COUMADIN/WARFARIN INR THERAPY RANGESSTANDARD DOSE: 2.0 - 3.0 Includes: PROPHYLAXIS forvenous thrombosis, systemic embolization; TREATMENT for venous thrombosis and/or pulmonary embolus.HIGH RISK: Target INR is 2.5-3.5 for patients with mechanical heart valves.[id number] 06:29:00 Test Item Value Reference Range Comments MAGNESIUM (BEAKER) (test 1.9 mg/dL 1.6-2.6 Specimen slightly hemolyzed nryh=393) BASIC METABOLIC [id number] 06:29:00 Test Item Value Reference Range Comments SODIUM (BEAKER) (test 136 meq/L 136-145 yjty=202) POTASSIUM (BEAKER) (test 4.0 meq/L 3.5-5.1 Specimen slightly aqaq=501) hemolyzed CHLORIDE (BEAKER) (test 100 meq/L 98-107 nqvg=576) CO2 (BEAKER) (test 30 meq/L 22-29 jgnw=158) BLOOD UREA NITROGEN 6 mg/dL 7-21 (BEAKER) (test mhtt=275) CREATININE (BEAKER) (test 0.70 mg/dL 0.57-1.25 Specimen slightly jzuv=279) hemolyzed GLUCOSE RANDOM (BEAKER) 114 mg/dL 70-105 (test hnoc=861) CALCIUM (BEAKER) (test 8.4 mg/dL 8.4-10.2 gntf=897) EGFR (BEAKER) (test 133 mL/min/1.73 sq m ESTIMATED GFR IS NOT uqls=6785) ACCURATE CREATININE CLEARANCE IN PREDICTING GLOMERULAR FILTRATION RATE. ESTIMATED GFR IS NOT APPLICABLE FOR DIALYSIS PATIENTS. HEPATIC FUNCTION [id number] 06:29:00 Test Item Value Reference Range Comments TOTAL PROTEIN (BEAKER) (test 6.2 gm/dL 6.0-8.3 Specimen slightly hemolyzed kmox=930) ALBUMIN (BEAKER) (test 2.4 g/dL 3.5-5.0 Specimen slightly hemolyzed rimu=3035) BILIRUBIN TOTAL (BEAKER) (test 0.7 mg/dL 0.2-1.2 Specimen slightly hemolyzed kwtm=611) BILIRUBIN DIRECT (BEAKER) (test 0.3 mg/dL 0.1-0.5 Specimen slightly hemolyzed qsdz=796) ALKALINE PHOSPHATASE (BEAKER) 105 U/L 40-150 (test zqbr=629) AST (SGOT) (BEAKER) (test 56 U/L 5-34 Specimen slightly hemolyzed qztk=200) ALT (SGPT) (BEAKER) (test 51 U/L 6-55 Specimen slightly hemolyzed wmhk=824) CBC W/PLT COUNT & AUTO [id number] 06:00:00 Test Item Value Reference Range Comments WHITE BLOOD CELL COUNT (BEAKER) (test zvrl=620) 10.8 K/ L 3.5-10.5 RED BLOOD CELL COUNT (BEAKER) (test pmtp=503) 3.49 M/ L 4.63-6.08 HEMOGLOBIN (BEAKER) (test xoai=369) 10.4 GM/DL 13.7-17.5 HEMATOCRIT (BEAKER) (test wovm=254) 32.7 % 40.1-51.0 MEAN CORPUSCULAR VOLUME (BEAKER) (test veql=173) 93.7 fL 79.0-92.2 MEAN CORPUSCULAR HEMOGLOBIN (BEAKER) (test 29.8 pg 25.7-32.2 xyvc=920) MEAN CORPUSCULAR HEMOGLOBIN CONC (BEAKER) (test 31.8 GM/DL 32.3-36.5 menf=119) RED CELL DISTRIBUTION WIDTH (BEAKER) (test 14.0 % 11.6-14.4 depe=507) PLATELET COUNT (BEAKER) (test tqfh=565) 497 K/CU MM 150-450 MEAN PLATELET VOLUME (BEAKER) (test ihkc=202) 10.7 fL 9.4-12.4 NUCLEATED RED BLOOD CELLS (BEAKER) (test 0 /100 WBC 0-0 pkab=379) NEUTROPHILS RELATIVE PERCENT (BEAKER) (test 68 % bxmv=914) LYMPHOCYTES RELATIVE PERCENT (BEAKER) (test 17 % tohy=000) MONOCYTES RELATIVE PERCENT (BEAKER) (test 10 % ezdm=976) EOSINOPHILS RELATIVE PERCENT (BEAKER) (test 3 % vpyd=378) BASOPHILS RELATIVE PERCENT (BEAKER) (test 1 % pirg=111) NEUTROPHILS ABSOLUTE COUNT (BEAKER) (test 7.27 K/ L 1.78-5.38 mspc=637) LYMPHOCYTES ABSOLUTE COUNT (BEAKER) (test 1.87 K/ L 1.32-3.57 bfon=248) MONOCYTES ABSOLUTE COUNT (BEAKER) (test 1.04 K/ L 0.30-0.82 mnwa=917) EOSINOPHILS ABSOLUTE COUNT (BEAKER) (test 0.37 K/ L 0.04-0.54 gpqr=430) BASOPHILS ABSOLUTE COUNT (BEAKER) (test 0.07 K/ L 0.01-0.08 lgxg=755) IMMATURE GRANULOCYTES-RELATIVE PERCENT (BEAKER) 1 % 0-1 (test wuih=4975) BODY FLUID CULTURE + GRAM [id number] 18:11:00 Test Item Value Reference Range Comments CULTURE (BEAKER) (test asem=7253) No growth GRAM STAIN RESULT (BEAKER) (test <1+ White blood cells seen zoue=0142) GRAM STAIN RESULT (BEAKER) (test No organisms seen zasc=71866) [id number] 07:01:00 Test Item Value Reference Range Comments MAGNESIUM (BEAKER) (test vykf=895) 1.9 mg/dL 1.6-2.6 BASIC METABOLIC [id number] 07:01:00 Test Item Value Reference Range Comments SODIUM (BEAKER) (test 138 meq/L 136-145 kpli=983) POTASSIUM (BEAKER) (test 3.8 meq/L 3.5-5.1 kbey=360) CHLORIDE (BEAKER) (test 102 meq/L 98-107 qsiv=459) CO2 (BEAKER) (test 29 meq/L 22-29 izet=298) BLOOD UREA NITROGEN 7 mg/dL 7-21 (BEAKER) (test bnur=123) CREATININE (BEAKER) (test 0.70 mg/dL 0.57-1.25 ueno=491) GLUCOSE RANDOM (BEAKER) 126 mg/dL 70-105 (test egvt=358) CALCIUM (BEAKER) (test 8.6 mg/dL 8.4-10.2 okyx=971) EGFR (BEAKER) (test 133 mL/min/1.73 sq m ESTIMATED GFR IS NOT jqux=2416) ACCURATE CREATININE CLEARANCE IN PREDICTING GLOMERULAR FILTRATION RATE. ESTIMATED GFR IS NOT APPLICABLE FOR DIALYSIS PATIENTS. HEPATIC FUNCTION [id number] 07:01:00 Test Item Value Reference Range Comments TOTAL PROTEIN (BEAKER) (test hqtg=366) 6.1 gm/dL 6.0-8.3 ALBUMIN (BEAKER) (test ycbs=3558) 2.5 g/dL 3.5-5.0 BILIRUBIN TOTAL (BEAKER) (test wsaz=087) 0.7 mg/dL 0.2-1.2 BILIRUBIN DIRECT (BEAKER) (test ouli=744) 0.6 mg/dL 0.1-0.5 ALKALINE PHOSPHATASE (BEAKER) (test ccia=543) 119 U/L 40-150 AST (SGOT) (BEAKER) (test gyii=656) 72 U/L 5-34 ALT (SGPT) (BEAKER) (test tgyv=774) 66 U/L 6-55 [id number] 06:32:00 Test Item Value Reference Range Comments PROTIME (BEAKER) (test lkho=985) 22.5 seconds 11.7-14.7 INR (BEAKER) (test pafz=979) 2.1 <=5.9 PARTIAL THROMBOPLASTIN TIME (BEAKER) (test 56.8 seconds 22.5-36.0 imgp=717) RECOMMENDED COUMADIN/WARFARIN INR THERAPY RANGESSTANDARD DOSE: 2.0 - 3.0 Includes: PROPHYLAXIS forvenous thrombosis, systemic embolization; TREATMENT for venous thrombosis and/or pulmonary embolus.HIGH RISK: Target INR is 2.5-3.5 for patients with mechanical heart valves.CBC W/PLT COUNT & AUTO [id number] 06:26:00 Test Item Value Reference Range Comments WHITE BLOOD CELL COUNT (BEAKER) (test kfkv=759) 12.5 K/ L 3.5-10.5 RED BLOOD CELL COUNT (BEAKER) (test jisk=263) 3.56 M/ L 4.63-6.08 HEMOGLOBIN (BEAKER) (test ycox=508) 10.3 GM/DL 13.7-17.5 HEMATOCRIT (BEAKER) (test cwax=686) 33.3 % 40.1-51.0 MEAN CORPUSCULAR VOLUME (BEAKER) (test xwfz=048) 93.5 fL 79.0-92.2 MEAN CORPUSCULAR HEMOGLOBIN (BEAKER) (test 28.9 pg 25.7-32.2 rnxz=816) MEAN CORPUSCULAR HEMOGLOBIN CONC (BEAKER) (test 30.9 GM/DL 32.3-36.5 zuqi=647) RED CELL DISTRIBUTION WIDTH (BEAKER) (test 14.3 % 11.6-14.4 ljur=771) PLATELET COUNT (BEAKER) (test wkib=403) 470 K/CU MM 150-450 MEAN PLATELET VOLUME (BEAKER) (test qzrh=644) 10.8 fL 9.4-12.4 NUCLEATED RED BLOOD CELLS (BEAKER) (test 0 /100 WBC 0-0 xhoe=061) NEUTROPHILS RELATIVE PERCENT (BEAKER) (test 71 % efgf=538) LYMPHOCYTES RELATIVE PERCENT (BEAKER) (test 13 % xzja=499) MONOCYTES RELATIVE PERCENT (BEAKER) (test 10 % ltqp=345) EOSINOPHILS RELATIVE PERCENT (BEAKER) (test 4 % gdxz=996) BASOPHILS RELATIVE PERCENT (BEAKER) (test 1 % cick=340) NEUTROPHILS ABSOLUTE COUNT (BEAKER) (test 8.89 K/ L 1.78-5.38 kszt=049) LYMPHOCYTES ABSOLUTE COUNT (BEAKER) (test 1.64 K/ L 1.32-3.57 toam=154) MONOCYTES ABSOLUTE COUNT (BEAKER) (test 1.24 K/ L 0.30-0.82 ytwo=017) EOSINOPHILS ABSOLUTE COUNT (BEAKER) (test 0.46 K/ L 0.04-0.54 cjbs=952) BASOPHILS ABSOLUTE COUNT (BEAKER) (test 0.06 K/ L 0.01-0.08 lygi=130) IMMATURE GRANULOCYTES-RELATIVE PERCENT (BEAKER) 1 % 0-1 (test wxjf=2478) BLOOD [id number] 22:01:00 Test Item Value Reference Range Comments CULTURE (BEAKER) (test poqg=8136) No growth in 5 days BLOOD [id number] 22:01:00 Test Item Value Reference Range Comments CULTURE (BEAKER) (test niqk=1752) No growth in 5 days [id number] 07:20:00 Test Item Value Reference Range Comments PROTIME (BEAKER) (test gopv=970) 21.3 seconds 11.7-14.7 INR (BEAKER) (test rnur=882) 2.0 <=5.9 PARTIAL THROMBOPLASTIN TIME (BEAKER) (test 50.7 seconds 22.5-36.0 jfmy=532) RECOMMENDED COUMADIN/WARFARIN INR THERAPY RANGESSTANDARD DOSE: 2.0 - 3.0 Includes: PROPHYLAXIS forvenous thrombosis, systemic embolization; TREATMENT for venous thrombosis and/or pulmonary embolus.HIGH RISK: Target INR is 2.5-3.5 for patients with mechanical heart valves.CBC W/PLT COUNT & AUTO [id number] 07:09:00 Test Item Value Reference Range Comments WHITE BLOOD CELL COUNT (BEAKER) (test jiba=103) 13.7 K/ L 3.5-10.5 RED BLOOD CELL COUNT (BEAKER) (test hufo=259) 3.79 M/ L 4.63-6.08 HEMOGLOBIN (BEAKER) (test zhcx=391) 11.0 GM/DL 13.7-17.5 HEMATOCRIT (BEAKER) (test jklx=804) 35.6 % 40.1-51.0 MEAN CORPUSCULAR VOLUME (BEAKER) (test mwbw=912) 93.9 fL 79.0-92.2 MEAN CORPUSCULAR HEMOGLOBIN (BEAKER) (test 29.0 pg 25.7-32.2 trtt=924) MEAN CORPUSCULAR HEMOGLOBIN CONC (BEAKER) (test 30.9 GM/DL 32.3-36.5 wthb=208) RED CELL DISTRIBUTION WIDTH (BEAKER) (test 14.6 % 11.6-14.4 soem=579) PLATELET COUNT (BEAKER) (test ryab=162) 450 K/CU MM 150-450 MEAN PLATELET VOLUME (BEAKER) (test gmam=570) 10.7 fL 9.4-12.4 NUCLEATED RED BLOOD CELLS (BEAKER) (test 0 /100 WBC 0-0 gluq=277) NEUTROPHILS RELATIVE PERCENT (BEAKER) (test 74 % rmex=895) LYMPHOCYTES RELATIVE PERCENT (BEAKER) (test 12 % vioj=853) MONOCYTES RELATIVE PERCENT (BEAKER) (test 10 % gllp=703) EOSINOPHILS RELATIVE PERCENT (BEAKER) (test 3 % qofq=091) BASOPHILS RELATIVE PERCENT (BEAKER) (test 1 % cdgb=439) NEUTROPHILS ABSOLUTE COUNT (BEAKER) (test 10.10 K/ L 1.78-5.38 lhdr=894) LYMPHOCYTES ABSOLUTE COUNT (BEAKER) (test 1.64 K/ L 1.32-3.57 dvsc=801) MONOCYTES ABSOLUTE COUNT (BEAKER) (test 1.34 K/ L 0.30-0.82 wlwo=116) EOSINOPHILS ABSOLUTE COUNT (BEAKER) (test 0.40 K/ L 0.04-0.54 jseu=505) BASOPHILS ABSOLUTE COUNT (BEAKER) (test 0.07 K/ L 0.01-0.08 zefw=967) IMMATURE GRANULOCYTES-RELATIVE PERCENT (BEAKER) 1 % 0-1 (test uaqu=1365) [id number] 07:08:00 Test Item Value Reference Range Comments MAGNESIUM (BEAKER) (test zvwz=375) 2.1 mg/dL 1.6-2.6 BASIC METABOLIC [id number] 07:08:00 Test Item Value Reference Range Comments SODIUM (BEAKER) (test 140 meq/L 136-145 jujm=780) POTASSIUM (BEAKER) (test 4.0 meq/L 3.5-5.1 oxmg=441) CHLORIDE (BEAKER) (test 102 meq/L 98-107 ufiq=497) CO2 (BEAKER) (test 29 meq/L 22-29 aysq=220) BLOOD UREA NITROGEN 8 mg/dL 7-21 (BEAKER) (test rbki=108) CREATININE (BEAKER) (test 0.72 mg/dL 0.57-1.25 qjji=640) GLUCOSE RANDOM (BEAKER) 109 mg/dL 70-105 (test tbsf=548) CALCIUM (BEAKER) (test 8.7 mg/dL 8.4-10.2 dcym=384) EGFR (BEAKER) (test 129 mL/min/1.73 sq m ESTIMATED GFR IS NOT fkvt=3851) ACCURATE CREATININE CLEARANCE IN PREDICTING GLOMERULAR FILTRATION RATE. ESTIMATED GFR IS NOT APPLICABLE FOR DIALYSIS PATIENTS. HEPATIC FUNCTION [id number] 07:08:00 Test Item Value Reference Range Comments TOTAL PROTEIN (BEAKER) (test dixx=806) 6.5 gm/dL 6.0-8.3 ALBUMIN (BEAKER) (test mufh=7961) 2.6 g/dL 3.5-5.0 BILIRUBIN TOTAL (BEAKER) (test nsth=276) 0.9 mg/dL 0.2-1.2 BILIRUBIN DIRECT (BEAKER) (test uhih=269) 0.7 mg/dL 0.1-0.5 ALKALINE PHOSPHATASE (BEAKER) (test uoav=704) 133 U/L 40-150 AST (SGOT) (BEAKER) (test tikw=154) 87 U/L 5-34 ALT (SGPT) (BEAKER) (test virz=215) 69 U/L 6-55 PROTHROMBIN [id number] 06:54:00 Test Item Value Reference Range Comments PROTIME (BEAKER) (test iuab=591) 21.3 seconds 11.7-14.7 INR (BEAKER) (test tmbd=552) 2.0 <=5.9 RECOMMENDED COUMADIN/WARFARIN INR THERAPY RANGESSTANDARD DOSE: 2.0 - 3.0 Includes: PROPHYLAXIS forvenous thrombosis, systemic embolization; TREATMENT for venous thrombosis and/or pulmonary embolus.HIGH RISK: Target INR is 2.5-3.5 for patients with mechanical heart valves.[id number] 06:24:00 Test Item Value Reference Range Comments MAGNESIUM (BEAKER) (test fjdj=589) 2.0 mg/dL 1.6-2.6 BASIC METABOLIC [id number] 06:24:00 Test Item Value Reference Range Comments SODIUM (BEAKER) (test 139 meq/L 136-145 lkhf=683) POTASSIUM (BEAKER) (test 3.7 meq/L 3.5-5.1 nbrs=431) CHLORIDE (BEAKER) (test 103 meq/L 98-107 jkas=156) CO2 (BEAKER) (test 27 meq/L 22-29 arhl=237) BLOOD UREA NITROGEN 8 mg/dL 7-21 (BEAKER) (test nejm=002) CREATININE (BEAKER) (test 0.68 mg/dL 0.57-1.25 ongd=894) GLUCOSE RANDOM (BEAKER) 133 mg/dL 70-105 (test trvi=146) CALCIUM (BEAKER) (test 8.4 mg/dL 8.4-10.2 dxeg=276) EGFR (BEAKER) (test 138 mL/min/1.73 sq m ESTIMATED GFR IS NOT nfbd=3051) ACCURATE CREATININE CLEARANCE IN PREDICTING GLOMERULAR FILTRATION RATE. ESTIMATED GFR IS NOT APPLICABLE FOR DIALYSIS PATIENTS. HEPATIC FUNCTION [id number] 06:24:00 Test Item Value Reference Range Comments TOTAL PROTEIN (BEAKER) (test rbfr=636) 6.1 gm/dL 6.0-8.3 ALBUMIN (BEAKER) (test hmkh=2997) 2.5 g/dL 3.5-5.0 BILIRUBIN TOTAL (BEAKER) (test bzfo=751) 1.0 mg/dL 0.2-1.2 BILIRUBIN DIRECT (BEAKER) (test sdio=602) 0.8 mg/dL 0.1-0.5 ALKALINE PHOSPHATASE (BEAKER) (test pbwy=311) 130 U/L 40-150 AST (SGOT) (BEAKER) (test reoz=716) 71 U/L 5-34 ALT (SGPT) (BEAKER) (test qtdf=870) 56 U/L 6-55 CBC W/PLT COUNT & AUTO [id number] 06:17:00 Test Item Value Reference Range Comments WHITE BLOOD CELL COUNT (BEAKER) (test yhoz=764) 17.6 K/ L 3.5-10.5 RED BLOOD CELL COUNT (BEAKER) (test iwst=397) 3.67 M/ L 4.63-6.08 HEMOGLOBIN (BEAKER) (test jhjq=486) 10.7 GM/DL 13.7-17.5 HEMATOCRIT (BEAKER) (test ioqt=988) 34.1 % 40.1-51.0 MEAN CORPUSCULAR VOLUME (BEAKER) (test rzuk=971) 92.9 fL 79.0-92.2 MEAN CORPUSCULAR HEMOGLOBIN (BEAKER) (test 29.2 pg 25.7-32.2 vvob=657) MEAN CORPUSCULAR HEMOGLOBIN CONC (BEAKER) (test 31.4 GM/DL 32.3-36.5 hiua=937) RED CELL DISTRIBUTION WIDTH (BEAKER) (test 14.6 % 11.6-14.4 ukcx=280) PLATELET COUNT (BEAKER) (test utxs=444) 395 K/CU MM 150-450 MEAN PLATELET VOLUME (BEAKER) (test sako=008) 10.6 fL 9.4-12.4 NUCLEATED RED BLOOD CELLS (BEAKER) (test 0 /100 WBC 0-0 expx=706) NEUTROPHILS RELATIVE PERCENT (BEAKER) (test 79 % xecm=799) LYMPHOCYTES RELATIVE PERCENT (BEAKER) (test 8 % awqo=939) MONOCYTES RELATIVE PERCENT (BEAKER) (test 9 % mvve=827) EOSINOPHILS RELATIVE PERCENT (BEAKER) (test 2 % sdsn=331) BASOPHILS RELATIVE PERCENT (BEAKER) (test 0 % ftzs=200) NEUTROPHILS ABSOLUTE COUNT (BEAKER) (test 13.89 K/ L 1.78-5.38 kymo=719) LYMPHOCYTES ABSOLUTE COUNT (BEAKER) (test 1.41 K/ L 1.32-3.57 seyf=247) MONOCYTES ABSOLUTE COUNT (BEAKER) (test 1.58 K/ L 0.30-0.82 ohea=207) EOSINOPHILS ABSOLUTE COUNT (BEAKER) (test 0.41 K/ L 0.04-0.54 bixt=466) BASOPHILS ABSOLUTE COUNT (BEAKER) (test 0.06 K/ L 0.01-0.08 dako=561) IMMATURE GRANULOCYTES-RELATIVE PERCENT (BEAKER) 1 % 0-1 (test kyrx=6039) PROTHROMBIN [id number] 05:39:00 Test Item Value Reference Range Comments PROTIME (BEAKER) (test vywp=111) 22.4 seconds 11.7-14.7 INR (BEAKER) (test xpaw=362) 2.1 <=5.9 RECOMMENDED COUMADIN/WARFARIN INR THERAPY RANGESSTANDARD DOSE: 2.0 - 3.0 Includes: PROPHYLAXIS forvenous thrombosis, systemic embolization; TREATMENT for venous thrombosis and/or pulmonary embolus.HIGH RISK: Target INR is 2.5-3.5 for patients with mechanical heart valves.[id number] 05:39:00 Test Item Value Reference Range Comments PROTIME (BEAKER) (test qadn=668) 22.4 seconds 11.7-14.7 INR (BEAKER) (test plqy=757) 2.1 <=5.9 PARTIAL THROMBOPLASTIN TIME (BEAKER) (test 48.4 seconds 22.5-36.0 qxme=985) RECOMMENDED COUMADIN/WARFARIN INR THERAPY RANGESSTANDARD DOSE: 2.0 - 3.0 Includes: PROPHYLAXIS forvenous thrombosis, systemic embolization; TREATMENT for venous thrombosis and/or pulmonary embolus.HIGH RISK: Target INR is 2.5-3.5 for patients with mechanical heart valves.VANCOMYCIN LEVEL, [id number] 05: 28:00 Test Item Value Reference Range Comments VANCOMYCIN TROUGH (BEAKER) (test zhfq=265) 14.0 ug/mL 10.0-20.0 RAD, CHEST, 1 VIEW, NON [id number] 16:09:00Reason for exam:->feverShould this be performed at the bedside?->YesFINAL REPORT EXAM: Frontal chest radiograph HISTORY PROVIDED: Fever COMPARISON: 05/31/2018 IMPRESSION:Lung volumes are low. Retrocardiac opacification likely represents a combination of a small left pleural effusion and adjacent atelectasis or consolidation. The right lung is clear. No discernible pneumothorax. The cardiac silhouette remains enlarged. No acute osseous abnormality. There is nonspecific gaseous distention of the stomach. A pigtail catheter is seen in the left upper quadrant. Signed: Josy Price MDReport Verified Date/Time : 06/07/2018 16:09:31 Reading Location: [facility] INCUBATED 1:1 MIXING [id number] 16:01:00 Test Item Value Reference Range Comments IMMEDIATE PT (BEAKER) (test 22.5 seconds 11.7-14.7 axsn=4908) IMMEDIATE PTT (BEAKER) (test 54.8 seconds 22.5-36.0 mitl=8093) IMMEDIATE 1:1 MIX PT (BEAKER) 14.1 seconds 11.7-14.7 (test bccz=[id number]) IMMEDIATE 1:1 MIX PTT (BEAKER) 40.9 seconds 22.5-36.0 (test zozt=[id number]) 1:1 MIX, 1 HOUR INC PT (BEAKER) 14.9 seconds (test dlhr=1512) 1:1 MIX, 1 HOUR INC PTT (BEAKER) 43.6 seconds (test nnha=8037) MIXING STUDY PATHOLOGIST Prolonged PT and PTT with INTERPRETATION (BEAKER) (test complete correction of PT mbwz=[id number]) and incomplete correction of PTT, 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 [id number] (BEAKER) Sade Mccormack MD (test hkvq=9677) (electronic signature) URINALYSIS W/ REFLEX URINE [id number] 14:23:00 Test Item Value Reference Range Comments COLOR (BEAKER) (test mxun=904) Yellow CLARITY (BEAKER) (test bkhl=030) Clear SPECIFIC GRAVITY UA (BEAKER) (test dieu=191) 1.012 1.001-1.035 PH UA (BEAKER) (test ncsj=004) 6.5 5.0-8.0 PROTEIN UA (BEAKER) (test mvps=885) 20 mg/dL Negative GLUCOSE UA (BEAKER) (test ippx=694) Negative Negative KETONES UA (BEAKER) (test csfp=517) 40 mg/dL Negative BILIRUBIN UA (BEAKER) (test rewr=924) Negative Negative BLOOD UA (BEAKER) (test lyel=617) Trace Negative NITRITE UA (BEAKER) (test jcue=526) Negative Negative LEUKOCYTE ESTERASE UA (BEAKER) (test ahlm=723) Negative Negative UROBILINOGEN UA (BEAKER) (test fyez=905) 0.2 mg/dL 0.2-1.0 RBC UA (BEAKER) (test euct=953) 2 /HPF WBC UA (BEAKER) (test xzan=569) 3 /HPF MUCUS (BEAKER) (test dvis=7844) Rare SOURCE(BEAKER) (test myyp=6508) [id number] 04:19:00 Test Item Value Reference Range Comments PROTIME (BEAKER) (test nqae=687) 22.3 seconds 11.7-14.7 INR (BEAKER) (test dsjw=118) 2.1 <=5.9 PARTIAL THROMBOPLASTIN TIME (BEAKER) (test 51.1 seconds 22.5-36.0 ogwn=520) RECOMMENDED COUMADIN/WARFARIN INR THERAPY RANGESSTANDARD DOSE: 2.0 - 3.0 Includes: PROPHYLAXIS forvenous thrombosis, systemic embolization; TREATMENT for venous thrombosis and/or pulmonary embolus.HIGH RISK: Target INR is 2.5-3.5 for patients with mechanical heart valves.PROTHROMBIN [id number] 04:18: 00 Test Item Value Reference Range Comments PROTIME (BEAKER) (test fyye=983) 22.3 seconds 11.7-14.7 INR (BEAKER) (test ocbe=451) 2.1 <=5.9 RECOMMENDED COUMADIN/WARFARIN INR THERAPY RANGESSTANDARD DOSE: 2.0 - 3.0 Includes: PROPHYLAXIS forvenous thrombosis, systemic embolization; TREATMENT for venous thrombosis and/or pulmonary embolus.HIGH RISK: Target INR is 2.5-3.5 for patients with mechanical heart valves.[id number] 04:08:00 Test Item Value Reference Range Comments MAGNESIUM (BEAKER) (test xtir=480) 1.8 mg/dL 1.6-2.6 BASIC METABOLIC [id number] 04:08:00 Test Item Value Reference Range Comments SODIUM (BEAKER) (test 139 meq/L 136-145 ivlj=016) POTASSIUM (BEAKER) (test 3.7 meq/L 3.5-5.1 navh=559) CHLORIDE (BEAKER) (test 103 meq/L 98-107 wqxk=705) CO2 (BEAKER) (test 27 meq/L 22-29 vrgq=443) BLOOD UREA NITROGEN 9 mg/dL 7-21 (BEAKER) (test mjjp=217) CREATININE (BEAKER) (test 0.69 mg/dL 0.57-1.25 olgf=571) GLUCOSE RANDOM (BEAKER) 134 mg/dL 70-105 (test ytnt=029) CALCIUM (BEAKER) (test 8.5 mg/dL 8.4-10.2 czgc=260) EGFR (BEAKER) (test 136 mL/min/1.73 sq m ESTIMATED GFR IS NOT nefl=9741) ACCURATE CREATININE CLEARANCE IN PREDICTING GLOMERULAR FILTRATION RATE. ESTIMATED GFR IS NOT APPLICABLE FOR DIALYSIS PATIENTS. HEPATIC FUNCTION [id number] 04:08:00 Test Item Value Reference Range Comments TOTAL PROTEIN (BEAKER) (test ntvw=614) 6.2 gm/dL 6.0-8.3 ALBUMIN (BEAKER) (test bbmp=3493) 2.6 g/dL 3.5-5.0 BILIRUBIN TOTAL (BEAKER) (test lhyn=104) 1.2 mg/dL 0.2-1.2 BILIRUBIN DIRECT (BEAKER) (test ycif=923) 1.0 mg/dL 0.1-0.5 ALKALINE PHOSPHATASE (BEAKER) (test apvn=685) 140 U/L 40-150 AST (SGOT) (BEAKER) (test hidj=273) 72 U/L 5-34 ALT (SGPT) (BEAKER) (test tlph=621) 59 U/L 6-55 CBC W/PLT COUNT & AUTO [id number] 03:56:00 Test Item Value Reference Range Comments WHITE BLOOD CELL COUNT (BEAKER) (test qlxg=604) 20.1 K/ L 3.5-10.5 RED BLOOD CELL COUNT (BEAKER) (test vmrp=844) 3.70 M/ L 4.63-6.08 HEMOGLOBIN (BEAKER) (test ppzo=270) 11.1 GM/DL 13.7-17.5 HEMATOCRIT (BEAKER) (test gdyq=818) 33.8 % 40.1-51.0 MEAN CORPUSCULAR VOLUME (BEAKER) (test sfde=416) 91.4 fL 79.0-92.2 MEAN CORPUSCULAR HEMOGLOBIN (BEAKER) (test 30.0 pg 25.7-32.2 lnbq=852) MEAN CORPUSCULAR HEMOGLOBIN CONC (BEAKER) (test 32.8 GM/DL 32.3-36.5 opcq=039) RED CELL DISTRIBUTION WIDTH (BEAKER) (test 14.6 % 11.6-14.4 qqwq=062) PLATELET COUNT (BEAKER) (test zbgn=396) 416 K/CU MM 150-450 MEAN PLATELET VOLUME (BEAKER) (test omfl=892) 10.6 fL 9.4-12.4 NUCLEATED RED BLOOD CELLS (BEAKER) (test 0 /100 WBC 0-0 xugt=543) NEUTROPHILS RELATIVE PERCENT (BEAKER) (test 80 % zfjs=114) LYMPHOCYTES RELATIVE PERCENT (BEAKER) (test 8 % miuf=373) MONOCYTES RELATIVE PERCENT (BEAKER) (test 8 % ooaz=359) EOSINOPHILS RELATIVE PERCENT (BEAKER) (test 2 % twzn=232) BASOPHILS RELATIVE PERCENT (BEAKER) (test 0 % yjgz=904) NEUTROPHILS ABSOLUTE COUNT (BEAKER) (test 16.05 K/ L 1.78-5.38 txco=263) LYMPHOCYTES ABSOLUTE COUNT (BEAKER) (test 1.64 K/ L 1.32-3.57 gprb=639) MONOCYTES ABSOLUTE COUNT (BEAKER) (test 1.65 K/ L 0.30-0.82 anqh=656) EOSINOPHILS ABSOLUTE COUNT (BEAKER) (test 0.30 K/ L 0.04-0.54 jvpi=889) BASOPHILS ABSOLUTE COUNT (BEAKER) (test 0.05 K/ L 0.01-0.08 fnkk=551) IMMATURE GRANULOCYTES-RELATIVE PERCENT (BEAKER) 2 % 0-1 (test wxfc=4525) FL, [id number] 18:30:00Reason for exam:->stonesPROCEDURE PERFORMED IN O.R. - PLEASE REFER TO THE INTRAOPERATIVE REPORT. CT, DRAINAGE, [id number] 18:06:00Reason for exam:->drainage of pancreatic fluid collection; concern for infection given ongoing fevers, WBC 24kFINAL REPORT INDICATION:28-year-old male with acute pancreatitis and acute necrotic collection. Request for percutaneous image guided drainage catheter placement. COMPARISON:June 05, 2018 TECHNIQUE:CT-guided placement of 10 Greek drainage catheter in left upper quadrant peripancreatic [...] described below. The patient's skin was prepped anddraped in standard sterile fashion. 2% lidocaine was used for local anesthesia. Using a left anterolateral approach and CT guidance, a 19 gauge introducer needle was advanced into the fluid collection.Dark thin fluid was encountered. A guide wire was placed and the introducer needle removed. An 8 Greek and then 10 Greek dilator were used. Then, a 10 Greek multisidehole drainage catheter was placed over the [...] transferred back to his hospital room. PROCEDURAL SEDATION:Procedural sedation was used with Versed 1.0 mg IV and Fentanyl 50 mcg IV administered. The department of radiology nurse was present at the time of procedure. Monitored cardiorespiratory function during conscioussedation was performed under the radiologist's supervision. Total monitoring time was approximately 45 minutes. IMPRESSION: CT-guided placement of 10 Greek drainage catheter in left upper quadrant peripancreatic collection. Thin dark fluid was encountered. Signed: Aldo Felton MDReport Verified Date/Time: 06/06/2018 18:06:54 Reading Location: [facility] B1 C013Y CT Body Reading Room C. DIFFICILE GDH [id number] 10:12:00 Test Item Value Reference Range Comments CDT TOXIN (test Negative Negative wogu=[id number]) CDT GDH ANTIGEN (test Negative Negative No indication of Clostridium lsev=[id number]) difficile infection and no colonization. Discontinue enteric isolation and therapy. Testing performed by [employer] Rapid Cassette Assay. For GDH, published sensitivity of the assay is 98.7% compared to cytotoxicity testing. For Toxin AB, published sensitivity is 87.8% and specificity 99.4% compared to cytotoxicity testing.Verification of kit performance was done by the [facility] Microbiology Lab prior to clinical use.VANCOMYCIN LEVEL, [id number] 04:02: 00 Test Item Value Reference Range Comments VANCOMYCIN TROUGH (BEAKER) (test aqiq=985) 9.9 ug/mL 10.0-20.0 [id number] 02:24:00 Test Item Value Reference Range Comments MAGNESIUM (BEAKER) (test nhsf=266) 1.8 mg/dL 1.6-2.6 BASIC METABOLIC [id number] 02:24:00 Test Item Value Reference Range Comments SODIUM (BEAKER) (test 139 meq/L 136-145 qzkc=095) POTASSIUM (BEAKER) (test 3.6 meq/L 3.5-5.1 jnro=674) CHLORIDE (BEAKER) (test 104 meq/L 98-107 bgzt=739) CO2 (BEAKER) (test 28 meq/L 22-29 dnlk=960) BLOOD UREA NITROGEN 9 mg/dL 7-21 (BEAKER) (test vjgt=975) CREATININE (BEAKER) (test 0.73 mg/dL 0.57-1.25 zvtt=730) GLUCOSE RANDOM (BEAKER) 126 mg/dL 70-105 (test pmao=337) CALCIUM (BEAKER) (test 8.4 mg/dL 8.4-10.2 jlqr=191) EGFR (BEAKER) (test 127 mL/min/1.73 sq m ESTIMATED GFR IS NOT qycf=0355) ACCURATE CREATININE CLEARANCE IN PREDICTING GLOMERULAR FILTRATION RATE. ESTIMATED GFR IS NOT APPLICABLE FOR DIALYSIS PATIENTS. HEPATIC FUNCTION [id number] 02:24:00 Test Item Value Reference Range Comments TOTAL PROTEIN (BEAKER) (test uask=279) 6.2 gm/dL 6.0-8.3 ALBUMIN (BEAKER) (test vvnw=2472) 2.6 g/dL 3.5-5.0 BILIRUBIN TOTAL (BEAKER) (test kfnn=283) 1.7 mg/dL 0.2-1.2 BILIRUBIN DIRECT (BEAKER) (test roxi=063) 1.2 mg/dL 0.1-0.5 ALKALINE PHOSPHATASE (BEAKER) (test zupg=757) 133 U/L 40-150 AST (SGOT) (BEAKER) (test yrsb=061) 89 U/L 5-34 ALT (SGPT) (BEAKER) (test hkyo=532) 60 U/L 6-55 [id number] 02:12:00 Test Item Value Reference Range Comments PROTIME (BEAKER) (test bakw=990) 20.9 seconds 11.7-14.7 INR (BEAKER) (test abac=143) 1.9 <=5.9 PARTIAL THROMBOPLASTIN TIME (BEAKER) (test 48.9 seconds 22.5-36.0 pcgs=266) RECOMMENDED COUMADIN/WARFARIN INR THERAPY RANGESSTANDARD DOSE: 2.0 - 3.0 Includes: PROPHYLAXIS forvenous thrombosis, systemic embolization; TREATMENT for venous thrombosis and/or pulmonary embolus.HIGH RISK: Target INR is 2.5-3.5 for patients with mechanical heart valves.PROTHROMBIN [id number] 02:11: 00 Test Item Value Reference Range Comments PROTIME (BEAKER) (test hakr=533) 20.9 seconds 11.7-14.7 INR (BEAKER) (test cwlb=854) 1.9 <=5.9 RECOMMENDED COUMADIN/WARFARIN INR THERAPY RANGESSTANDARD DOSE: 2.0 - 3.0 Includes: PROPHYLAXIS forvenous thrombosis, systemic embolization; TREATMENT for venous thrombosis and/or pulmonary embolus.HIGH RISK: Target INR is 2.5-3.5 for patients with mechanical heart valves.CBC W/PLT COUNT & AUTO [id number] 02:00:00 Test Item Value Reference Range Comments WHITE BLOOD CELL COUNT (BEAKER) (test ssaj=594) 24.9 K/ L 3.5-10.5 RED BLOOD CELL COUNT (BEAKER) (test lisl=967) 3.67 M/ L 4.63-6.08 HEMOGLOBIN (BEAKER) (test qpcu=130) 11.0 GM/DL 13.7-17.5 HEMATOCRIT (BEAKER) (test ezft=874) 34.0 % 40.1-51.0 MEAN CORPUSCULAR VOLUME (BEAKER) (test aukk=403) 92.6 fL 79.0-92.2 MEAN CORPUSCULAR HEMOGLOBIN (BEAKER) (test 30.0 pg 25.7-32.2 mzgn=531) MEAN CORPUSCULAR HEMOGLOBIN CONC (BEAKER) (test 32.4 GM/DL 32.3-36.5 xker=755) RED CELL DISTRIBUTION WIDTH (BEAKER) (test 14.8 % 11.6-14.4 rqdo=964) PLATELET COUNT (BEAKER) (test sfqk=781) 366 K/CU MM 150-450 MEAN PLATELET VOLUME (BEAKER) (test ivah=370) 10.5 fL 9.4-12.4 NUCLEATED RED BLOOD CELLS (BEAKER) (test 0 /100 WBC 0-0 lzfx=329) NEUTROPHILS RELATIVE PERCENT (BEAKER) (test 81 % ghqc=935) LYMPHOCYTES RELATIVE PERCENT (BEAKER) (test 7 % lnzd=230) MONOCYTES RELATIVE PERCENT (BEAKER) (test 8 % fjrz=919) EOSINOPHILS RELATIVE PERCENT (BEAKER) (test 2 % mohw=537) BASOPHILS RELATIVE PERCENT (BEAKER) (test 0 % ixew=112) NEUTROPHILS ABSOLUTE COUNT (BEAKER) (test 20.12 K/ L 1.78-5.38 bdee=366) LYMPHOCYTES ABSOLUTE COUNT (BEAKER) (test 1.67 K/ L 1.32-3.57 fxpv=161) MONOCYTES ABSOLUTE COUNT (BEAKER) (test 1.96 K/ L 0.30-0.82 awet=641) EOSINOPHILS ABSOLUTE COUNT (BEAKER) (test 0.49 K/ L 0.04-0.54 fckj=657) BASOPHILS ABSOLUTE COUNT (BEAKER) (test 0.09 K/ L 0.01-0.08 gyza=573) IMMATURE GRANULOCYTES-RELATIVE PERCENT (BEAKER) 2 % 0-1 (test mtdc=9553) [id number] 16:33:00 Test Item Value Reference Range Comments FIBRINOGEN LEVEL (TAI) (test kjld=274) 852 mg/dl 225-434 CT, [id number] 12:46:00FINAL REPORT CT abdomen and pelvis with contrast History: Abdominal pain and fever Comparison: none Technique: serial axial imaging was performed following up to 100cc of non ionic iodinated intravenous contrast as per departmental protocol. Multiplanar images are reconstructedand reviewed when indicated. This CT examination is [...] gas is contained within this collection. Diffuse fattyinfiltration of the liver is noted. A common bile duct stent is in place, without intrahepatic or extrahepatic biliary dilation. No hepatic mass or fluid collection. The gallbladder demonstrates no calcified stone, wall thickening, or pericholecystic fluid. Unremarkable appearance of adrenal glands,kidneys, ureters, and urinary bladder. . No small or large bowel obstruction. No apparent bowel wall thickening. No findings to indicate acute appendicitis. No lymphadenopathy is seen within the abdomen or pelvis. No abdominal aortic aneurysm. No aggressive osseous lesion. Impression: 1. Findings consistent with acute pancreatitis.2. Subtle 2.4 cm area of decreased attenuation within the pancreatic head may either represent focal edema or early pancreatic necrosis.3. Developing 7.2 x 6.5x 3.7 cm fluid collection between the pancreatic body and greater curvature of the stomach. No gas is contained within this collection to definitively suggest abscess, although this possibility is not entirely excluded.4. Diffuse fatty infiltration of the liver.5. Common bile duct stent in place, without evidence of biliary dilation. Signed: Minh Lee MDReport Verified Date/Time: 06/05/2018 12:46:00 Reading Location: [facility] Diagnostic Imaging Reading Room - [place] [id number] CBC W/PLT COUNT & AUTO [id number] 10:12:00 Test Item Value Reference Range Comments WHITE BLOOD CELL COUNT (BEAKER) (test rqnl=740) 24.1 K/ L 3.5-10.5 RED BLOOD CELL COUNT (BEAKER) (test ghub=687) 3.89 M/ L 4.63-6.08 HEMOGLOBIN (BEAKER) (test bixl=006) 11.5 GM/DL 13.7-17.5 HEMATOCRIT (BEAKER) (test yprq=939) 35.5 % 40.1-51.0 MEAN CORPUSCULAR VOLUME (BEAKER) (test jeko=830) 91.3 fL 79.0-92.2 MEAN CORPUSCULAR HEMOGLOBIN (BEAKER) (test 29.6 pg 25.7-32.2 bemp=319) MEAN CORPUSCULAR HEMOGLOBIN CONC (BEAKER) (test 32.4 GM/DL 32.3-36.5 cgdf=418) RED CELL DISTRIBUTION WIDTH (BEAKER) (test 14.6 % 11.6-14.4 ruzj=338) PLATELET COUNT (BEAKER) (test afva=286) 355 K/CU MM 150-450 MEAN PLATELET VOLUME (BEAKER) (test uzao=572) 10.8 fL 9.4-12.4 NUCLEATED RED BLOOD CELLS (BEAKER) (test 0 /100 WBC 0-0 efjw=855) (CELLAVISION MANUAL DIFF)2018-06-05 10:12:00 Test Item Value Reference Range Comments NEUTROPHILS - REL (CELLAVISION)(BEAKER) (test 75 % ihoo=8791) LYMPHOCYTES - REL (CELLAVISION)(BEAKER) (test 11 % ysew=0643) MONOCYTES - REL (CELLAVISION)(BEAKER) (test 9 % ysvf=0267) EOSINOPHILS - REL (CELLAVISION)(BEAKER) (test 5 % wwis=9664) NEUTROPHILS - ABS (CELLAVISION)(BEAKER) (test 18.08 K/ul 1.78-5.38 cwnc=4210) LYMPHOCYTES - ABS (CELLAVISION)(BEAKER) (test 2.65 K/ul 1.32-3.57 cyud=6751) MONOCYTES - ABS (CELLAVISION)(BEAKER) (test 2.17 K/uL 0.30-0.82 nawb=0001) EOSINOPHILS - ABS (CELLAVISION)(BEAKER) (test 1.21 K/uL 0.04-0.54 ypht=1292) TOTAL COUNTED (BEAKER) (test dnrq=1792) 100 RBC MORPHOLOGY (BEAKER) (test tjzm=520) Normal WBC MORPHOLOGY (BEAKER) (test zrpg=672) Normal PLT MORPHOLOGY (BEAKER) (test yqju=447) Normal ARTIFACT (CELLAVISION)(BEAKER) (test lawj=2869) Present PLATELET CONCENTRATION (CELLAVISION)(BEAKER) Adequate (test gbyj=7403) Received comment: User comments: Slide comments:[id number] 04:13:00 Test Item Value Reference Range Comments PROTIME (BEAKER) (test yiya=990) 20.4 seconds 11.7-14.7 INR (BEAKER) (test wbow=804) 1.9 <=5.9 PARTIAL THROMBOPLASTIN TIME (BEAKER) (test 45.0 seconds 22.5-36.0 fvjx=519) RECOMMENDED COUMADIN/WARFARIN INR THERAPY RANGESSTANDARD DOSE: 2.0 - 3.0 Includes: PROPHYLAXIS forvenous thrombosis, systemic embolization; TREATMENT for venous thrombosis and/or pulmonary embolus.HIGH RISK: Target INR is 2.5-3.5 for patients with mechanical heart valves.[id number] 04:12:00 Test Item Value Reference Range Comments MAGNESIUM (BEAKER) (test dhez=589) 1.8 mg/dL 1.6-2.6 BASIC METABOLIC [id number] 04:12:00 Test Item Value Reference Range Comments SODIUM (BEAKER) (test 135 meq/L 136-145 rcee=507) POTASSIUM (BEAKER) (test 3.4 meq/L 3.5-5.1 bhwx=052) CHLORIDE (BEAKER) (test 102 meq/L 98-107 nejp=746) CO2 (BEAKER) (test 24 meq/L 22-29 uctm=472) BLOOD UREA NITROGEN 9 mg/dL 7-21 (BEAKER) (test mddq=977) CREATININE (BEAKER) (test 0.72 mg/dL 0.57-1.25 syeh=925) GLUCOSE RANDOM (BEAKER) 120 mg/dL 70-105 (test qqma=684) CALCIUM (BEAKER) (test 8.3 mg/dL 8.4-10.2 pjrt=602) EGFR (BEAKER) (test 129 mL/min/1.73 sq m ESTIMATED GFR IS NOT wdkz=7302) ACCURATE CREATININE CLEARANCE IN PREDICTING GLOMERULAR FILTRATION RATE. ESTIMATED GFR IS NOT APPLICABLE FOR DIALYSIS PATIENTS. HEPATIC FUNCTION [id number] 04:12:00 Test Item Value Reference Range Comments TOTAL PROTEIN (BEAKER) (test ovrd=850) 6.3 gm/dL 6.0-8.3 ALBUMIN (BEAKER) (test yoyj=1701) 2.7 g/dL 3.5-5.0 BILIRUBIN TOTAL (BEAKER) (test dxmo=159) 2.3 mg/dL 0.2-1.2 BILIRUBIN DIRECT (BEAKER) (test dars=766) 1.7 mg/dL 0.1-0.5 ALKALINE PHOSPHATASE (BEAKER) (test zxkk=221) 126 U/L 40-150 AST (SGOT) (BEAKER) (test gawa=702) 93 U/L 5-34 ALT (SGPT) (BEAKER) (test pbsy=284) 55 U/L 6-55 PROTHROMBIN [id number] 04:12:00 Test Item Value Reference Range Comments PROTIME (BEAKER) (test oqoq=674) 20.4 seconds 11.7-14.7 INR (BEAKER) (test rhgx=603) 1.9 <=5.9 RECOMMENDED COUMADIN/WARFARIN INR THERAPY RANGESSTANDARD DOSE: 2.0 - 3.0 Includes: PROPHYLAXIS forvenous thrombosis, systemic embolization; TREATMENT for venous thrombosis and/or pulmonary embolus.HIGH RISK: Target INR is 2.5-3.5 for patients with mechanical heart valves.BLOOD [id number] 02:02:00 Test Item Value Reference Range Comments CULTURE (BEAKER) (test lcye=3903) No growth in 5 days BLOOD [id number] 02:02:00 Test Item Value Reference Range Comments CULTURE (BEAKER) (test opox=6833) No growth in 5 days CBC W/PLT COUNT & AUTO [id number] 22:18:00 Test Item Value Reference Range Comments WHITE BLOOD CELL COUNT (BEAKER) (test ktyr=920) 20.1 K/ L 3.5-10.5 RED BLOOD CELL COUNT (BEAKER) (test igqt=474) 4.01 M/ L 4.63-6.08 HEMOGLOBIN (BEAKER) (test zmme=492) 11.9 GM/DL 13.7-17.5 HEMATOCRIT (BEAKER) (test dyyx=452) 36.7 % 40.1-51.0 MEAN CORPUSCULAR VOLUME (BEAKER) (test izkq=685) 91.5 fL 79.0-92.2 MEAN CORPUSCULAR HEMOGLOBIN (BEAKER) (test 29.7 pg 25.7-32.2 gfvb=060) MEAN CORPUSCULAR HEMOGLOBIN CONC (BEAKER) (test 32.4 GM/DL 32.3-36.5 jeuy=057) RED CELL DISTRIBUTION WIDTH (BEAKER) (test 14.5 % 11.6-14.4 xjki=252) PLATELET COUNT (BEAKER) (test qpmf=016) 332 K/CU MM 150-450 MEAN PLATELET VOLUME (BEAKER) (test usbt=225) 10.8 fL 9.4-12.4 NUCLEATED RED BLOOD CELLS (BEAKER) (test 0 /100 WBC 0-0 vuqk=375) (CELLAVISION MANUAL DIFF)2018-06-04 22:18:00 Test Item Value Reference Range Comments NEUTROPHILS - REL (CELLAVISION)(BEAKER) (test 79 % yyyq=4824) LYMPHOCYTES - REL (CELLAVISION)(BEAKER) (test 6 % azlw=7507) MONOCYTES - REL (CELLAVISION)(BEAKER) (test 10 % ldcs=3973) EOSINOPHILS - REL (CELLAVISION)(BEAKER) (test 1 % xfwo=0766) BANDS - REL (CELLAVISION)(BEAKER) (test 3 % 0-10 hzld=8164) ATYPICAL LYMPHOCYTES - REL (CELLAVISION)(BEAKER) 1 % 0-0 (test sztc=3211) NEUTROPHILS - ABS (CELLAVISION)(BEAKER) (test 15.88 K/ul 1.78-5.38 yemz=2478) LYMPHOCYTES - ABS (CELLAVISION)(BEAKER) (test 1.21 K/ul 1.32-3.57 niby=7637) MONOCYTES - ABS (CELLAVISION)(BEAKER) (test 2.01 K/uL 0.30-0.82 avvo=1789) EOSINOPHILS - ABS (CELLAVISION)(BEAKER) (test 0.20 K/uL 0.04-0.54 lgyl=3504) BANDS - ABS (CELLAVISION)(BEAKER) (test 0.60 K/uL 0.00-0.80 zovi=7174) ATYPICAL LYMPHOCYTES - ABS (CELLAVISION)(BEAKER) 0.20 K/uL 0.00-0.00 (test abtu=8164) TOTAL COUNTED (BEAKER) (test xrom=0045) 100 WBC MORPHOLOGY (BEAKER) (test wzru=011) Normal GIANT PLATELETS (BEAKER) (test fgof=659) Present POLYCHROMATOPHILLIC RBCS(BEAKER) (test cuen=948) 1+ few ARTIFACT (CELLAVISION)(BEAKER) (test vwxm=4017) Present PLATELET CONCENTRATION (CELLAVISION)(BEAKER) Adequate (test qeuw=7078) Received comment: User comments: Slide comments:[id number] 14:28:00 Test Item Value Reference Range Comments PROCALCITONIN (BEAKER) (test jetf=5179) 0.62 ng/mL <0.05 SEPSIS RISK (ng/mL)Low: 0.05-0.50Intermediate: 0.51-2.00High: & gt;=2.01LACTIC ACID, [id number] 14:07:00 Test Item Value Reference Range Comments LACTATE BLOOD VENOUS (2) 1.1 mmol/L 0.5-2.2 Specimen moderately hemolyzed (BEAKER) (test bjlj=3604) [id number] 06:34:00 Test Item Value Reference Range Comments MAGNESIUM (BEAKER) (test fhon=644) 1.7 mg/dL 1.6-2.6 BASIC METABOLIC [id number] 06:34:00 Test Item Value Reference Range Comments SODIUM (BEAKER) (test 136 meq/L 136-145 ywfe=967) POTASSIUM (BEAKER) (test 3.7 meq/L 3.5-5.1 imjt=859) CHLORIDE (BEAKER) (test 103 meq/L 98-107 dklt=355) CO2 (BEAKER) (test 24 meq/L 22-29 iage=355) BLOOD UREA NITROGEN 10 mg/dL 7-21 (BEAKER) (test kzzk=321) CREATININE (BEAKER) (test 0.61 mg/dL 0.57-1.25 mxvf=042) GLUCOSE RANDOM (BEAKER) 131 mg/dL 70-105 (test ggnb=770) CALCIUM (BEAKER) (test 8.5 mg/dL 8.4-10.2 mykf=263) EGFR (BEAKER) (test 156 mL/min/1.73 sq m ESTIMATED GFR IS NOT ieye=7673) ACCURATE CREATININE CLEARANCE IN PREDICTING GLOMERULAR FILTRATION RATE. ESTIMATED GFR IS NOT APPLICABLE FOR DIALYSIS PATIENTS. HEPATIC FUNCTION [id number] 06:34:00 Test Item Value Reference Range Comments TOTAL PROTEIN (BEAKER) (test ljvp=030) 6.0 gm/dL 6.0-8.3 ALBUMIN (BEAKER) (test bfpt=8847) 2.6 g/dL 3.5-5.0 BILIRUBIN TOTAL (BEAKER) (test zrfn=804) 2.0 mg/dL 0.2-1.2 BILIRUBIN DIRECT (BEAKER) (test xspb=731) 1.6 mg/dL 0.1-0.5 ALKALINE PHOSPHATASE (BEAKER) (test udyx=641) 117 U/L 40-150 AST (SGOT) (BEAKER) (test cnbw=013) 78 U/L 5-34 ALT (SGPT) (BEAKER) (test hynv=474) 53 U/L 6-55 [id number] 06:06:00 Test Item Value Reference Range Comments PROTIME (BEAKER) (test qhal=238) 18.7 seconds 11.7-14.7 INR (BEAKER) (test hejs=060) 1.7 <=5.9 PARTIAL THROMBOPLASTIN TIME (BEAKER) (test 38.7 seconds 22.5-36.0 xkch=872) RECOMMENDED COUMADIN/WARFARIN INR THERAPY RANGESSTANDARD DOSE: 2.0 - 3.0 Includes: PROPHYLAXIS forvenous thrombosis, systemic embolization; TREATMENT for venous thrombosis and/or pulmonary embolus.HIGH RISK: Target INR is 2.5-3.5 for patients with mechanical heart valves.PROTHROMBIN [id number] 06:05: 00 Test Item Value Reference Range Comments PROTIME (BEAKER) (test jfee=109) 18.7 seconds 11.7-14.7 INR (BEAKER) (test wxpt=084) 1.7 <=5.9 RECOMMENDED COUMADIN/WARFARIN INR THERAPY RANGESSTANDARD DOSE: 2.0 - 3.0 Includes: PROPHYLAXIS forvenous thrombosis, systemic embolization; TREATMENT for venous thrombosis and/or pulmonary embolus.HIGH RISK: Target INR is 2.5-3.5 for patients with mechanical heart valves.[id number] 06:22:00 Test Item Value Reference Range Comments MAGNESIUM (BEAKER) (test eaic=676) 1.8 mg/dL 1.6-2.6 BASIC METABOLIC [id number] 06:22:00 Test Item Value Reference Range Comments SODIUM (BEAKER) (test 135 meq/L 136-145 ihtl=195) POTASSIUM (BEAKER) (test 3.9 meq/L 3.5-5.1 cruv=966) CHLORIDE (BEAKER) (test 103 meq/L 98-107 euno=469) CO2 (BEAKER) (test 25 meq/L 22-29 owwq=643) BLOOD UREA NITROGEN 12 mg/dL 7-21 (BEAKER) (test ilak=464) CREATININE (BEAKER) (test 0.65 mg/dL 0.57-1.25 wtwc=943) GLUCOSE RANDOM (BEAKER) 135 mg/dL 70-105 (test fjsy=913) CALCIUM (BEAKER) (test 8.1 mg/dL 8.4-10.2 eltl=264) EGFR (BEAKER) (test 145 mL/min/1.73 sq m ESTIMATED GFR IS NOT unwu=3507) ACCURATE CREATININE CLEARANCE IN PREDICTING GLOMERULAR FILTRATION RATE. ESTIMATED GFR IS NOT APPLICABLE FOR DIALYSIS PATIENTS. HEPATIC FUNCTION [id number] 06:22:00 Test Item Value Reference Range Comments TOTAL PROTEIN (BEAKER) (test cgwj=308) 6.1 gm/dL 6.0-8.3 ALBUMIN (BEAKER) (test exfz=5293) 2.5 g/dL 3.5-5.0 BILIRUBIN TOTAL (BEAKER) (test hsel=123) 2.3 mg/dL 0.2-1.2 BILIRUBIN DIRECT (BEAKER) (test lhis=374) 1.7 mg/dL 0.1-0.5 ALKALINE PHOSPHATASE (BEAKER) (test vomt=051) 112 U/L 40-150 AST (SGOT) (BEAKER) (test uwcu=436) 74 U/L 5-34 ALT (SGPT) (BEAKER) (test jisg=478) 46 U/L 6-55 PT/[id number] 06:08:00 Test Item Value Reference Range Comments PROTIME (BEAKER) (test xxrb=826) 17.4 seconds 11.7-14.7 INR (BEAKER) (test dwqd=598) 1.5 <=5.9 PARTIAL THROMBOPLASTIN TIME (BEAKER) (test 39.9 seconds 22.5-36.0 cozd=463) RECOMMENDED COUMADIN/WARFARIN INR THERAPY RANGESSTANDARD DOSE: 2.0 - 3.0 Includes: PROPHYLAXIS forvenous thrombosis, systemic embolization; TREATMENT for venous thrombosis and/or pulmonary embolus.HIGH RISK: Target INR is 2.5-3.5 for patients with mechanical heart valves.PROTHROMBIN [id number] 06:07: 00 Test Item Value Reference Range Comments PROTIME (BEAKER) (test pqmv=320) 17.4 seconds 11.7-14.7 INR (BEAKER) (test yfuy=455) 1.5 <=5.9 RECOMMENDED COUMADIN/WARFARIN INR THERAPY RANGESSTANDARD DOSE: 2.0 - 3.0 Includes: PROPHYLAXIS forvenous thrombosis, systemic embolization; TREATMENT for venous thrombosis and/or pulmonary embolus.HIGH RISK: Target INR is 2.5-3.5 for patients with mechanical heart valves.CBC W/PLT COUNT & AUTO [id number] 05:56:00 Test Item Value Reference Range Comments WHITE BLOOD CELL COUNT (BEAKER) (test fivj=991) 19.1 K/ L 3.5-10.5 RED BLOOD CELL COUNT (BEAKER) (test knvx=065) 4.10 M/ L 4.63-6.08 HEMOGLOBIN (BEAKER) (test otfj=127) 12.2 GM/DL 13.7-17.5 HEMATOCRIT (BEAKER) (test awpg=389) 37.5 % 40.1-51.0 MEAN CORPUSCULAR VOLUME (BEAKER) (test yncl=208) 91.5 fL 79.0-92.2 MEAN CORPUSCULAR HEMOGLOBIN (BEAKER) (test 29.8 pg 25.7-32.2 lefc=215) MEAN CORPUSCULAR HEMOGLOBIN CONC (BEAKER) (test 32.5 GM/DL 32.3-36.5 fext=416) RED CELL DISTRIBUTION WIDTH (BEAKER) (test 14.4 % 11.6-14.4 fqdi=084) PLATELET COUNT (BEAKER) (test wkfc=775) 306 K/CU MM 150-450 MEAN PLATELET VOLUME (BEAKER) (test irpe=942) 10.9 fL 9.4-12.4 NUCLEATED RED BLOOD CELLS (BEAKER) (test 0 /100 WBC 0-0 qjsz=742) NEUTROPHILS RELATIVE PERCENT (BEAKER) (test 78 % ayww=181) LYMPHOCYTES RELATIVE PERCENT (BEAKER) (test 9 % rnyv=398) MONOCYTES RELATIVE PERCENT (BEAKER) (test 8 % tsrc=868) EOSINOPHILS RELATIVE PERCENT (BEAKER) (test 2 % umzn=225) BASOPHILS RELATIVE PERCENT (BEAKER) (test 0 % phtk=250) NEUTROPHILS ABSOLUTE COUNT (BEAKER) (test 14.83 K/ L 1.78-5.38 bgwp=961) LYMPHOCYTES ABSOLUTE COUNT (BEAKER) (test 1.66 K/ L 1.32-3.57 xdrq=574) MONOCYTES ABSOLUTE COUNT (BEAKER) (test 1.48 K/ L 0.30-0.82 ihdv=197) EOSINOPHILS ABSOLUTE COUNT (BEAKER) (test 0.32 K/ L 0.04-0.54 oljn=419) BASOPHILS ABSOLUTE COUNT (BEAKER) (test 0.07 K/ L 0.01-0.08 clnu=603) IMMATURE GRANULOCYTES-RELATIVE PERCENT (BEAKER) 4 % 0-1 (test bezj=2762) CBC W/PLT COUNT & AUTO [id number] 04:50:00 Test Item Value Reference Range Comments WHITE BLOOD CELL COUNT (BEAKER) (test ofwr=724) 16.6 K/ L 3.5-10.5 RED BLOOD CELL COUNT (BEAKER) (test lbef=883) 3.82 M/ L 4.63-6.08 HEMOGLOBIN (BEAKER) (test haiy=334) 11.3 GM/DL 13.7-17.5 HEMATOCRIT (BEAKER) (test nohq=038) 35.6 % 40.1-51.0 MEAN CORPUSCULAR VOLUME (BEAKER) (test qbiz=894) 93.2 fL 79.0-92.2 MEAN CORPUSCULAR HEMOGLOBIN (BEAKER) (test 29.6 pg 25.7-32.2 sdih=036) MEAN CORPUSCULAR HEMOGLOBIN CONC (BEAKER) (test 31.7 GM/DL 32.3-36.5 ifag=201) RED CELL DISTRIBUTION WIDTH (BEAKER) (test 14.3 % 11.6-14.4 fwkq=429) PLATELET COUNT (BEAKER) (test abfm=665) 240 K/CU MM 150-450 MEAN PLATELET VOLUME (BEAKER) (test etgu=791) 11.0 fL 9.4-12.4 NUCLEATED RED BLOOD CELLS (BEAKER) (test 0 /100 WBC 0-0 htuq=509) NEUTROPHILS RELATIVE PERCENT (BEAKER) (test 76 % dspd=738) LYMPHOCYTES RELATIVE PERCENT (BEAKER) (test 11 % wmod=112) MONOCYTES RELATIVE PERCENT (BEAKER) (test 8 % qrkg=646) EOSINOPHILS RELATIVE PERCENT (BEAKER) (test 2 % mxrc=731) BASOPHILS RELATIVE PERCENT (BEAKER) (test 0 % jrzz=165) NEUTROPHILS ABSOLUTE COUNT (BEAKER) (test 12.63 K/ L 1.78-5.38 gftf=053) LYMPHOCYTES ABSOLUTE COUNT (BEAKER) (test 1.90 K/ L 1.32-3.57 wpgk=352) MONOCYTES ABSOLUTE COUNT (BEAKER) (test 1.29 K/ L 0.30-0.82 wwky=991) EOSINOPHILS ABSOLUTE COUNT (BEAKER) (test 0.32 K/ L 0.04-0.54 pdjf=691) BASOPHILS ABSOLUTE COUNT (BEAKER) (test 0.06 K/ L 0.01-0.08 qfmv=094) IMMATURE GRANULOCYTES-RELATIVE PERCENT (BEAKER) 2 % 0-1 (test jgai=5052) [id number] 04:26:00 Test Item Value Reference Range Comments MAGNESIUM (BEAKER) (test rvnr=833) 1.7 mg/dL 1.6-2.6 BASIC METABOLIC [id number] 04:26:00 Test Item Value Reference Range Comments SODIUM (BEAKER) (test 137 meq/L 136-145 swuy=253) POTASSIUM (BEAKER) (test 3.7 meq/L 3.5-5.1 rkop=142) CHLORIDE (BEAKER) (test 106 meq/L 98-107 ygfn=298) CO2 (BEAKER) (test 25 meq/L 22-29 fpxv=370) BLOOD UREA NITROGEN 10 mg/dL 7-21 (BEAKER) (test bsjb=564) CREATININE (BEAKER) (test 0.68 mg/dL 0.57-1.25 wppt=368) GLUCOSE RANDOM (BEAKER) 137 mg/dL 70-105 (test oikv=879) CALCIUM (BEAKER) (test 8.2 mg/dL 8.4-10.2 bwej=664) EGFR (BEAKER) (test 138 mL/min/1.73 sq m ESTIMATED GFR IS NOT hhar=2690) ACCURATE CREATININE CLEARANCE IN PREDICTING GLOMERULAR FILTRATION RATE. ESTIMATED GFR IS NOT APPLICABLE FOR DIALYSIS PATIENTS. HEPATIC FUNCTION [id number] 04:26:00 Test Item Value Reference Range Comments TOTAL PROTEIN (BEAKER) (test qsgm=300) 5.9 gm/dL 6.0-8.3 ALBUMIN (BEAKER) (test nwjz=1478) 2.6 g/dL 3.5-5.0 BILIRUBIN TOTAL (BEAKER) (test aulv=850) 2.3 mg/dL 0.2-1.2 BILIRUBIN DIRECT (BEAKER) (test bnda=407) 1.8 mg/dL 0.1-0.5 ALKALINE PHOSPHATASE (BEAKER) (test tsek=765) 111 U/L 40-150 AST (SGOT) (BEAKER) (test wzzz=270) 88 U/L 5-34 ALT (SGPT) (BEAKER) (test mneu=943) 54 U/L 6-55 PT/[id number] 04:11:00 Test Item Value Reference Range Comments PROTIME (BEAKER) (test sbkw=168) 17.3 seconds 11.7-14.7 INR (BEAKER) (test jsoi=228) 1.5 <=5.9 PARTIAL THROMBOPLASTIN TIME (BEAKER) (test 34.7 seconds 22.5-36.0 vjny=902) RECOMMENDED COUMADIN/WARFARIN INR THERAPY RANGESSTANDARD DOSE: 2.0 - 3.0 Includes: PROPHYLAXIS forvenous thrombosis, systemic embolization; TREATMENT for venous thrombosis and/or pulmonary embolus.HIGH RISK: Target INR is 2.5-3.5 for patients with mechanical heart valves.PROTHROMBIN TIME/[id number] 04:10: 00 Test Item Value Reference Range Comments PROTIME (BEAKER) (test jhor=324) 17.3 seconds 11.7-14.7 INR (BEAKER) (test fmky=491) 1.5 <=5.9 RECOMMENDED COUMADIN/WARFARIN INR THERAPY RANGESSTANDARD DOSE: 2.0 - 3.0 Includes: PROPHYLAXIS forvenous thrombosis, systemic embolization; TREATMENT for venous thrombosis and/or pulmonary embolus.HIGH RISK: Target INR is 2.5-3.5 for patients with mechanical heart valves.U/S, ABDOMINAL, [id number] 14: 19:00Abdomen limited area? Add comment if clarification is needed.->Right upper quadrantReason for exam:->Post ERCP, cholangitisFINAL REPORT ULTRASOUND RIGHT UPPER QUADRANT OF THE ABDOMEN HISTORY: Statuspost ERCP, cholangitis COMPARISON: No comparison cross-sectional imaging [...] gallstones. The common bile duct is normal incaliber, measuring 3.6 mm. The main portal vein is normal in caliber, measuring 11 mm. Pancreas cannot be visualized with ultrasound. No ascites or pleural effusion. The right kidney is normal in size, contour, and echogenicity. The right kidney measures 10.1 cm in length. No hydronephrosis, mass lesion or stones are visualized. No abnormalities are seen in the abdominal aorta, inferior vena cava,or hepatic veins. The mid to distal abdominal aorta were obscured by bowel gas. The left hepatic vein was obscured. IMPRESSION: 1. No ultrasound evidence of cholecystitis. No common bile duct dilatation. 2. Fatty liver. Signed: Josy Albert MDReport Verified Date/Time: 06/01/2018 14:19:45 Reading Location: [address] Reading Room CBC W/PLT COUNT & AUTO [id number] 06:28:00 Test Item Value Reference Range Comments WHITE BLOOD CELL COUNT (BEAKER) (test bbjk=632) 14.2 K/ L 3.5-10.5 RED BLOOD CELL COUNT (BEAKER) (test lgsr=547) 4.02 M/ L 4.63-6.08 HEMOGLOBIN (BEAKER) (test jxsz=787) 11.8 GM/DL 13.7-17.5 HEMATOCRIT (BEAKER) (test gjut=428) 37.3 % 40.1-51.0 MEAN CORPUSCULAR VOLUME (BEAKER) (test lgtr=075) 92.8 fL 79.0-92.2 MEAN CORPUSCULAR HEMOGLOBIN (BEAKER) (test 29.4 pg 25.7-32.2 vwkz=618) MEAN CORPUSCULAR HEMOGLOBIN CONC (BEAKER) (test 31.6 GM/DL 32.3-36.5 iirx=082) RED CELL DISTRIBUTION WIDTH (BEAKER) (test 14.4 % 11.6-14.4 thlq=561) PLATELET COUNT (BEAKER) (test jwig=140) 235 K/CU MM 150-450 MEAN PLATELET VOLUME (BEAKER) (test vjnu=617) 11.4 fL 9.4-12.4 NUCLEATED RED BLOOD CELLS (BEAKER) (test 0 /100 WBC 0-0 tafu=106) NEUTROPHILS RELATIVE PERCENT (BEAKER) (test 79 % elul=051) LYMPHOCYTES RELATIVE PERCENT (BEAKER) (test 10 % hwig=151) MONOCYTES RELATIVE PERCENT (BEAKER) (test 8 % mdao=591) EOSINOPHILS RELATIVE PERCENT (BEAKER) (test 1 % kebg=013) BASOPHILS RELATIVE PERCENT (BEAKER) (test 0 % glve=330) NEUTROPHILS ABSOLUTE COUNT (BEAKER) (test 11.26 K/ L 1.78-5.38 czdp=873) LYMPHOCYTES ABSOLUTE COUNT (BEAKER) (test 1.46 K/ L 1.32-3.57 zaqk=674) MONOCYTES ABSOLUTE COUNT (BEAKER) (test 1.20 K/ L 0.30-0.82 wbrw=073) EOSINOPHILS ABSOLUTE COUNT (BEAKER) (test 0.12 K/ L 0.04-0.54 yjnp=302) BASOPHILS ABSOLUTE COUNT (BEAKER) (test 0.05 K/ L 0.01-0.08 nhew=793) IMMATURE GRANULOCYTES-RELATIVE PERCENT (BEAKER) 1 % 0-1 (test zelx=5917) [id number] 05:51:00 Test Item Value Reference Range Comments MAGNESIUM (BEAKER) (test wsog=392) 2.0 mg/dL 1.6-2.6 BASIC METABOLIC [id number] 05:51:00 Test Item Value Reference Range Comments SODIUM (BEAKER) (test 140 meq/L 136-145 cxsd=812) POTASSIUM (BEAKER) (test 3.8 meq/L 3.5-5.1 euqw=741) CHLORIDE (BEAKER) (test 106 meq/L 98-107 impw=100) CO2 (BEAKER) (test 27 meq/L 22-29 ikbn=097) BLOOD UREA NITROGEN 13 mg/dL 7-21 (BEAKER) (test mimq=081) CREATININE (BEAKER) (test 0.69 mg/dL 0.57-1.25 jmtj=651) GLUCOSE RANDOM (BEAKER) 140 mg/dL 70-105 (test qvcf=336) CALCIUM (BEAKER) (test 8.2 mg/dL 8.4-10.2 sxtw=021) EGFR (BEAKER) (test 136 mL/min/1.73 sq m ESTIMATED GFR IS NOT ydte=8854) ACCURATE CREATININE CLEARANCE IN PREDICTING GLOMERULAR FILTRATION RATE. ESTIMATED GFR IS NOT APPLICABLE FOR DIALYSIS PATIENTS. Specimen slightly ictericHEPATIC FUNCTION [id number] 05:51:00 Test Item Value Reference Range Comments TOTAL PROTEIN (BEAKER) (test czub=035) 5.9 gm/dL 6.0-8.3 ALBUMIN (BEAKER) (test xxqt=4857) 2.6 g/dL 3.5-5.0 BILIRUBIN TOTAL (BEAKER) (test qzyf=254) 4.1 mg/dL 0.2-1.2 BILIRUBIN DIRECT (BEAKER) (test iyql=590) 3.2 mg/dL 0.1-0.5 ALKALINE PHOSPHATASE (BEAKER) (test wpux=870) 103 U/L 40-150 AST (SGOT) (BEAKER) (test icde=474) 95 U/L 5-34 ALT (SGPT) (BEAKER) (test cvlx=693) 48 U/L 6-55 Specimen slightly ictericPT/[id number] 05:30:00 Test Item Value Reference Range Comments PROTIME (BEAKER) (test gtqk=419) 16.0 seconds 11.7-14.7 INR (BEAKER) (test yano=171) 1.3 <=5.9 PARTIAL THROMBOPLASTIN TIME (BEAKER) (test 38.9 seconds 22.5-36.0 ppve=694) RECOMMENDED COUMADIN/WARFARIN INR THERAPY RANGESSTANDARD DOSE: 2.0 - 3.0 Includes: PROPHYLAXIS forvenous thrombosis, systemic embolization; TREATMENT for venous thrombosis and/or pulmonary embolus.HIGH RISK: Target INR is 2.5-3.5 for patients with mechanical heart valves.PROTHROMBIN TIME/[id number] 05:29: 00 Test Item Value Reference Range Comments PROTIME (BEAKER) (test hwlo=383) 16.0 seconds 11.7-14.7 INR (BEAKER) (test ifcw=493) 1.3 <=5.9 RECOMMENDED COUMADIN/WARFARIN INR THERAPY RANGESSTANDARD DOSE: 2.0 - 3.0 Includes: PROPHYLAXIS forvenous thrombosis, systemic embolization; TREATMENT for venous thrombosis and/or pulmonary embolus.HIGH RISK: Target INR is 2.5-3.5 for patients with mechanical heart valves.RAD, CHEST, 1 VIEW, NON [id number] 11:58:00Reason for exam:->pancreatitisShould this be performed at the bedside?->YesFINAL REPORT Portable chest. HISTORY: Pancreatitis. COMPARISON STUDY: None available. FINDINGS: The cardiac size is enlarged. The lung volumes are low. There is atelectasis or consolidation left lung base with blunting of the left costophrenic angle. No pneumothorax is seen. Theregional skeleton is unremarkable. IMPRESSION: Low lung volumes with atelectasis or consolidation inthe left lung base. Signed: Michael Briones MDReport Verified Date/Time: 05/31/2018 11:58:54 Reading [facility] CBC W/PLT COUNT & AUTO [id number] 08:44:00 Test Item Value Reference Range Comments WHITE BLOOD CELL COUNT (BEAKER) (test sdsf=525) 21.6 K/ L 3.5-10.5 RED BLOOD CELL COUNT (BEAKER) (test dtmh=514) 4.15 M/ L 4.63-6.08 HEMOGLOBIN (BEAKER) (test etzf=183) 12.3 GM/DL 13.7-17.5 HEMATOCRIT (BEAKER) (test nyig=489) 38.0 % 40.1-51.0 MEAN CORPUSCULAR VOLUME (BEAKER) (test glkn=243) 91.6 fL 79.0-92.2 MEAN CORPUSCULAR HEMOGLOBIN (BEAKER) (test 29.6 pg 25.7-32.2 ebur=414) MEAN CORPUSCULAR HEMOGLOBIN CONC (BEAKER) (test 32.4 GM/DL 32.3-36.5 xixs=582) RED CELL DISTRIBUTION WIDTH (BEAKER) (test 13.9 % 11.6-14.4 sfhh=208) PLATELET COUNT (BEAKER) (test xnsy=346) 232 K/CU MM 150-450 MEAN PLATELET VOLUME (BEAKER) (test sytt=582) 11.4 fL 9.4-12.4 NUCLEATED RED BLOOD CELLS (BEAKER) (test 0 /100 WBC 0-0 feuf=664) (CELLAVISION MANUAL DIFF)2018-05-31 08:44:00 Test Item Value Reference Range Comments NEUTROPHILS - REL (CELLAVISION)(BEAKER) (test 63 % kcan=4266) LYMPHOCYTES - REL (CELLAVISION)(BEAKER) (test 5 % ypdi=8393) MONOCYTES - REL (CELLAVISION)(BEAKER) (test 13 % dzxy=1086) EOSINOPHILS - REL (CELLAVISION)(BEAKER) (test 1 % oafr=4879) BANDS - REL (CELLAVISION)(BEAKER) (test 18 % 0-10 axrs=4059) NEUTROPHILS - ABS (CELLAVISION)(BEAKER) (test 13.61 K/ul 1.78-5.38 rdyx=1656) LYMPHOCYTES - ABS (CELLAVISION)(BEAKER) (test 1.08 K/ul 1.32-3.57 xyxw=1904) MONOCYTES - ABS (CELLAVISION)(BEAKER) (test 2.81 K/uL 0.30-0.82 dxxg=5065) EOSINOPHILS - ABS (CELLAVISION)(BEAKER) (test 0.22 K/uL 0.04-0.54 vtvl=3477) BANDS - ABS (CELLAVISION)(BEAKER) (test 3.89 K/uL 0.00-0.80 ocdp=8023) TOTAL COUNTED (BEAKER) (test tfiv=5198) 100 RBC MORPHOLOGY (BEAKER) (test ueye=699) Normal SMUDGE CELLS (BEAKER) (test djae=1113) Present GIANT PLATELETS (BEAKER) (test shnl=657) Present ARTIFACT (CELLAVISION)(BEAKER) (test fnut=1143) Present PLATELET CONCENTRATION (CELLAVISION)(BEAKER) Adequate (test pfxc=0985) Received comment: User comments: Slide comments:[id number] 04:27:00 Test Item Value Reference Range Comments MAGNESIUM (BEAKER) (test jqix=227) 1.6 mg/dL 1.6-2.6 BASIC METABOLIC [id number] 04:27:00 Test Item Value Reference Range Comments SODIUM (BEAKER) (test 139 meq/L 136-145 zxyp=848) POTASSIUM (BEAKER) (test 3.7 meq/L 3.5-5.1 vyck=054) CHLORIDE (BEAKER) (test 101 meq/L 98-107 otyv=502) CO2 (BEAKER) (test 28 meq/L 22-29 xzkc=450) BLOOD UREA NITROGEN 21 mg/dL 7-21 (BEAKER) (test asmx=859) CREATININE (BEAKER) (test 0.80 mg/dL 0.57-1.25 pswc=437) GLUCOSE RANDOM (BEAKER) 135 mg/dL 70-105 (test yzlk=196) CALCIUM (BEAKER) (test 8.0 mg/dL 8.4-10.2 hxem=593) EGFR (BEAKER) (test 114 mL/min/1.73 sq m ESTIMATED GFR IS NOT wkhb=5653) ACCURATE CREATININE CLEARANCE IN PREDICTING GLOMERULAR FILTRATION RATE. ESTIMATED GFR IS NOT APPLICABLE FOR DIALYSIS PATIENTS. Specimen moderately ictericHEPATIC FUNCTION [id number] 04:27:00 Test Item Value Reference Range Comments TOTAL PROTEIN (BEAKER) (test wexn=161) 6.1 gm/dL 6.0-8.3 ALBUMIN (BEAKER) (test auxi=1356) 2.7 g/dL 3.5-5.0 BILIRUBIN TOTAL (BEAKER) (test btqt=380) 5.2 mg/dL 0.2-1.2 BILIRUBIN DIRECT (BEAKER) (test zonq=075) 4.1 mg/dL 0.1-0.5 ALKALINE PHOSPHATASE (BEAKER) (test dfbx=789) 80 U/L 40-150 AST (SGOT) (BEAKER) (test fqvx=272) 39 U/L 5-34 ALT (SGPT) (BEAKER) (test uscu=143) 29 U/L 6-55 Specimen moderately ictericPT/[id number] 04:15:00 Test Item Value Reference Range Comments PROTIME (BEAKER) (test zksq=336) 17.0 seconds 11.7-14.7 INR (BEAKER) (test eddc=577) 1.4 <=5.9 PARTIAL THROMBOPLASTIN TIME (BEAKER) (test 39.4 seconds 22.5-36.0 geyv=379) RECOMMENDED COUMADIN/WARFARIN INR THERAPY RANGESSTANDARD DOSE: 2.0 - 3.0 Includes: PROPHYLAXIS forvenous thrombosis, systemic embolization; TREATMENT for venous thrombosis and/or pulmonary embolus.HIGH RISK: Target INR is 2.5-3.5 for patients with mechanical heart valves.PROTHROMBIN TIME/[id number] 04:14: 00 Test Item Value Reference Range Comments PROTIME (BEAKER) (test qpnx=322) 17.0 seconds 11.7-14.7 INR (BEAKER) (test qist=684) 1.4 <=5.9 RECOMMENDED COUMADIN/WARFARIN INR THERAPY RANGESSTANDARD DOSE: 2.0 - 3.0 Includes: PROPHYLAXIS forvenous thrombosis, systemic embolization; TREATMENT for venous thrombosis and/or pulmonary embolus.HIGH RISK: Target INR is 2.5-3.5 for patients with mechanical heart valves.URINALYSIS W/ REFLEX URINE [id number] 21:53:00 Test Item Value Reference Range Comments COLOR (BEAKER) (test fyef=724) Dark Yellow CLARITY (BEAKER) (test ktci=472) Clear SPECIFIC GRAVITY UA (BEAKER) (test ibxl=440) 1.050 1.001-1.035 PH UA (BEAKER) (test ywoe=393) 6.5 5.0-8.0 PROTEIN UA (BEAKER) (test ehls=617) 100 mg/dL Negative GLUCOSE UA (BEAKER) (test dwpw=034) Negative Negative KETONES UA (BEAKER) (test dtur=498) 80 mg/dL Negative BILIRUBIN UA (BEAKER) (test lyeh=499) Positive Negative BLOOD UA (BEAKER) (test zyrh=349) Small Negative NITRITE UA (BEAKER) (test zmlm=571) Negative Negative LEUKOCYTE ESTERASE UA (BEAKER) (test vxyk=574) Negative Negative UROBILINOGEN UA (BEAKER) (test ufnq=434) 2.0 mg/dL 0.2-1.0 RBC UA (BEAKER) (test smlk=764) 20 /HPF WBC UA (BEAKER) (test eywi=206) 1 /HPF SQUAMOUS EPITHELIAL (BEAKER) (test tkcp=547) < /HPF CRYSTALS, URINE (BEAKER) (test fdwz=4450) Rare SOURCE(BEAKER) (test ktsq=6300) CBC W/PLT COUNT & AUTO [id number] 21:33:00 Test Item Value Reference Range Comments WHITE BLOOD CELL COUNT (BEAKER) (test jpvl=457) 26.6 K/ L 3.5-10.5 RED BLOOD CELL COUNT (BEAKER) (test xmdc=543) 4.57 M/ L 4.63-6.08 HEMOGLOBIN (BEAKER) (test jrgu=014) 13.6 GM/DL 13.7-17.5 HEMATOCRIT (BEAKER) (test ujfy=273) 41.6 % 40.1-51.0 MEAN CORPUSCULAR VOLUME (BEAKER) (test oeyh=854) 91.0 fL 79.0-92.2 MEAN CORPUSCULAR HEMOGLOBIN (BEAKER) (test 29.8 pg 25.7-32.2 bnma=737) MEAN CORPUSCULAR HEMOGLOBIN CONC (BEAKER) (test 32.7 GM/DL 32.3-36.5 xtgv=468) RED CELL DISTRIBUTION WIDTH (BEAKER) (test 14.1 % 11.6-14.4 qtxx=083) PLATELET COUNT (BEAKER) (test ypro=840) 287 K/CU MM 150-450 MEAN PLATELET VOLUME (BEAKER) (test kszv=543) 11.8 fL 9.4-12.4 NUCLEATED RED BLOOD CELLS (BEAKER) (test 0 /100 WBC 0-0 eolp=228) (CELLAVISION MANUAL DIFF)2018-05-30 21:33:00 Test Item Value Reference Range Comments NEUTROPHILS - REL (CELLAVISION)(BEAKER) (test 84 % eiqe=6447) LYMPHOCYTES - REL (CELLAVISION)(BEAKER) (test 4 % koyu=4644) MONOCYTES - REL (CELLAVISION)(BEAKER) (test 6 % owyg=0568) EOSINOPHILS - REL (CELLAVISION)(BEAKER) (test 1 % aygh=8940) BANDS - REL (CELLAVISION)(BEAKER) (test 5 % 0-10 fdxv=3899) NEUTROPHILS - ABS (CELLAVISION)(BEAKER) (test 22.34 K/ul 1.78-5.38 qjqc=4617) LYMPHOCYTES - ABS (CELLAVISION)(BEAKER) (test 1.06 K/ul 1.32-3.57 jbmg=7963) MONOCYTES - ABS (CELLAVISION)(BEAKER) (test 1.60 K/uL 0.30-0.82 lvyk=6185) EOSINOPHILS - ABS (CELLAVISION)(BEAKER) (test 0.27 K/uL 0.04-0.54 toqb=0931) BANDS - ABS (CELLAVISION)(BEAKER) (test 1.33 K/uL 0.00-0.80 twtz=5546) TOTAL COUNTED (BEAKER) (test kvji=0672) 100 RBC MORPHOLOGY (BEAKER) (test mbir=014) Normal SMUDGE CELLS (BEAKER) (test wrqj=4288) Present GIANT PLATELETS (BEAKER) (test kpkx=524) Present VACUOLATED NEUTROPHILS (BEAKER) (test osql=172) Present ARTIFACT (CELLAVISION)(BEAKER) (test wfat=0623) Present PLATELET CONCENTRATION (CELLAVISION)(BEAKER) Adequate (test idgo=1219) Received comment: User comments: Slide comments:TROPONIN [id number] 21:32:00 Test Item Value Reference Range Comments TROPONIN I (BEAKER) (test nyrv=575) < ng/mL 0.00-0.03 Troponin I (TnI) levels must be interpreted in the context of the presenting symptoms and the clinical findings. Elevated TnI levels indicate myocardial damage, but are not specific for ischemic heart disease. Elevated TnI levels are seen in patients with other cardiac conditions (including myocarditis and congestive heart failure), and slight TnI elevations occur in patients with other conditions, including sepsis, renal failure, acidosis, acute neurological disease, and persistent tachyarrhythmia.BASIC METABOLIC [id number] 21:29:00 Test Item Value Reference Range Comments SODIUM (BEAKER) (test 134 meq/L 136-145 zjvm=549) POTASSIUM (BEAKER) (test 3.6 meq/L 3.5-5.1 agra=974) CHLORIDE (BEAKER) (test 99 meq/L 98-107 otzo=271) CO2 (BEAKER) (test 25 meq/L 22-29 wrjd=544) BLOOD UREA NITROGEN 25 mg/dL 7-21 (BEAKER) (test jpxu=199) CREATININE (BEAKER) (test 0.80 mg/dL 0.57-1.25 tonh=161) GLUCOSE RANDOM (BEAKER) 144 mg/dL 70-105 (test rozn=275) CALCIUM (BEAKER) (test 7.8 mg/dL 8.4-10.2 pmse=070) EGFR (BEAKER) (test 114 mL/min/1.73 sq m ESTIMATED GFR IS NOT jsrk=6927) ACCURATE CREATININE CLEARANCE IN PREDICTING GLOMERULAR FILTRATION RATE. ESTIMATED GFR IS NOT APPLICABLE FOR DIALYSIS PATIENTS. Specimen moderately [id number] 21:27:00 Test Item Value Reference Range Comments MAGNESIUM (BEAKER) (test wwgx=930) 1.6 mg/dL 1.6-2.6 LIPID [id number] 21:27:00 Test Item Value Reference Range Comments TRIGLYCERIDES (BEAKER) (test szjv=036) 102 mg/dL CHOLESTEROL (BEAKER) (test kpwv=092) 101 mg/dL HDL CHOLESTEROL (BEAKER) (test ccrn=665) 17 mg/dL LDL CHOLESTEROL CALCULATED (BEAKER) (test 64 mg/dL dmmf=227) Triglyceride Reference Range: Low Risk <150 Borderline 150- 199 High Risk 200-499 Very High Risk >=500Cholesterol Reference Range: Low Risk <200 Borderline 200-239 High Risk > 240HDL Cholesterol Reference Range: Low Risk >=60 High Risk <40LDL Cholesterol Reference Range: Optimal <100 Near Optimal 100-129 Borderline 130-159 High 160-189 Very High >=190 Specimen moderatelyictericHEPATIC FUNCTION [id number] 21:27: 00 Test Item Value Reference Range Comments TOTAL PROTEIN (BEAKER) (test ddpm=217) 6.5 gm/dL 6.0-8.3 ALBUMIN (BEAKER) (test fvtd=2761) 2.9 g/dL 3.5-5.0 BILIRUBIN TOTAL (BEAKER) (test lslh=147) 5.1 mg/dL 0.2-1.2 BILIRUBIN DIRECT (BEAKER) (test oqff=680) 3.9 mg/dL 0.1-0.5 ALKALINE PHOSPHATASE (BEAKER) (test muqz=005) 87 U/L 40-150 AST (SGOT) (BEAKER) (test hkmu=988) 38 U/L 5-34 ALT (SGPT) (BEAKER) (test adri=374) 28 U/L 6-55 Specimen moderately ictericGAMMA GLUTAMYL TRANSFERASE (GGT)2018-05-30 21:27:00 Test Item Value Reference Range Comments GAMMA GLUTAMYL TRANSFERASE (BEAKER) (test rvmx=785) 55 U/L 9-64 Specimen moderately [id number] 21:27:00 Test Item Value Reference Range Comments LIPASE (BEAKER) (test feti=758) 227 U/L 8-78 Specimen moderately ictericPROTHROMBIN TIME/[id number] 21:05:00 Test Item Value Reference Range Comments PROTIME (BEAKER) (test vlyh=082) 17.1 seconds 11.7-14.7 INR (CHRISAKER) (test jlfn=023) 1.4 <=5.9 RECOMMENDED COUMADIN/WARFARIN INR THERAPY RANGESSTANDARD DOSE: 2.0 - 3.0 Includes: PROPHYLAXIS forvenous thrombosis, systemic embolization; TREATMENT for venous thrombosis and/or pulmonary embolus.HIGH RISK: Target INR is 2.5-3.5 for patients with mechanical heart valves.
[2018-07-09] MEDS ORDERED: FAMOTIDINE 20 MG/2 ML VIAL IV ONE (16:28)
[2018-07-09] MEDS ORDERED: FENTANYL CITR 100 MCG/2 ML ONE (16:28)
[2018-07-09] MEDS ORDERED: NA CHLORIDE 0.9% 1,000 ML ONE (16:28)
[2018-07-09] MEDS ORDERED: ONDANSETRON 4 MG/2 ML VIAL ONE (16:28)
[2018-07-09] MEDS ORDERED: PIPER/TAZO/NS 3.375gm 3.375 GM/100 ML BAG ONE (16:28)
[2018-07-09 16:39] LABS: Absolute Lymphocytes (CBC) 1.8 K/uL (0.7-4.9); Absolute Monocytes 0.6 K/uL (0.1-1.3); Absolute Neutrophil 5.3 K/uL (1.8-8.0); Basophils % 1.1 % (0-1.3); Eosinophils % 4.7 % (0-4.4); Hematocrit 41.7 % (39.6-49.0); MPV 9.4 fL (7.6-11.3); Monocytes % 7.6 % (3.3-12.3); RBC Red Blood Cell Count 4.66 M/uL (4.33-5.43)
--- NOTE | 2018-07-09 16:41 | RAD REPORT ---
EXAM DESCRIPTION: RAD - Chest Single View - 07/09/2018 4:32 pm CLINICAL HISTORY: ABDOMINAL DISTENTION Chest pain. COMPARISON: Chest Single View dated 05/30/2018Chest Single View dated 05/30/2018; Abdomen Pelvis W C ontrast dated 05/30/2018 FINDINGS: Portable technique limits examination quality. The lungs are underinflated with a small left pleural effusion suspected. The heart is normal in size . No displaced fractures.Drainage catheter there is seen in the left upper quadrant. IMPRESSION: Underinflated lungs with small left pleural effusion.
[2018-07-09 16:55] LABS: ALT/SGPT 23 U/L (12-78); AST/SGOT 27 U/L (15-37); Albumin 2.8 g/dL (3.4-5.0); Alkaline Phosphatase 121 U/L (45-117); BUN Blood Urea Nitrogen 4 mg/dL (7-18); Bicarbonate 28 mmol/L (21-32); Bilirubin Direct 0.2 mg/dL (0-0.2); Bilirubin Total 0.5 mg/dL (0.2-1.0); Glucose Level 104 mg/dL (74-106); Lipase 271 U/L (73-393); Potassium 3.7 mmol/L (3.5-5.1); Protein, Total 7.9 g/dL (6.4-8.2); Sodium Level 141 mmol/L (136-145)
--- NOTE | 2018-07-09 17:59 | RAD REPORT ---
EXAM DESCRIPTION: CTAbdomen Pelvis W Contrast - 07/09/2018 5:47 pm CLINICAL HISTORY: Abdominal pain. ABD PAIN COMPARISON: Abdomen Pelvis W Contrast dated 05/30/2018 TECHNIQUE: Biphasic CT imaging of the abdomen and pelvis was performed with 100 ml non-ionic IV cont rast. All CT scans are performed using dose optimization technique as appropriate and may include automated exposure control or mA/KV adjustment according to patient size. FINDINGS: Atelectasis is present in the left lung base with a small left pleural effusion. Left-sided percutaneous pigtail catheter is place entering the abdominal cavity. The pigtail catheter is situated in the fluid collection surrounding the tail the pancreas adjacent in the stomach. There is additional fluid seen collecting along the tail the pancreas extending more inferiorly measuring 6.1 x 3.8 cm, presumably pseudocyst. Irregular dilatation of pancreatic duct is present. Several fadia tional focal fluid collections are seen along the body of the pancreas, notable collection in region the pancreatic head measuring 2.1 x 1.9 cm. Common bile duct stent is in place. The spleen, adrenal glands and pancreas are within normal limits. The gallbladder is absent. No aggre ssive liver mass or biliary dilatation. No free air or bowel obstruction. No evidence of significant lymphadenopathy. No suspicious bony findings. IMPRESSION: Multiple peripancreatic loculated fluid collections are seen, compatible with cirrhosis. The largest collection projects inferior from the pancreatic tail measuring 6.1 x 3.2 cm. Along the anterosuperior margin of the pancreatic tail a percutaneous pigtail stent is in place, with little re sidual fluid is seen in this region.
--- NOTE | 2018-07-09 18:13 | EDPHYS ---
Physician Documentation [facility] Name: Jann Alvarez Age: 28 yrs Sex: Male : 1990 Arrival Date: 07/09/2018 Time: 13:28 Bed 24 Private MD: ED Physician Rush Briones HPI: 07/09 16:01 This 28 yrs old Male presents to ER via Ambulatory with complaints of J P rachelle Drain issues. 16:01 The patient presents with abdominal pain in the upper abdomen, abdominal distention in rachelle the upper abdomen, in the lower abdomen. Onset: The symptoms/episode began/occurred 30 day(s) ago. The symptoms do not radiate. Associated signs and symptoms: none. Modifying factors: The symptoms are alleviated by nothing, the symptoms are aggravated by breathing deeply, movement, pressure, touching the area. Severity of pain: At its worst the pain was mild moderate in the emergency department the pain is unchanged. The patient has not experienced similar symptoms in the past. Historical: - Allergies: 14:14 No Known Allergies; tw2 - Home Meds: 14:14 Dulcolax (bisacodyl) 5 mg Oral TbEC 1 tab [Active]; nystatin 100,000 unit/gram Topical tw2 crea 2 times per day [Active]; polyethylene glycol 3350 17 gram oral pwpk 1 packet once daily [Active]; hydrocodone-acetaminophen 10-325 mg Oral tab 1 tab every 4 hours [Active]; - PMHx: 14:14 Autism- Nonverbal; Lupus; Pancreatitis; tw2 - PSHx: 14:14 gall bladder stent x1; ALLEY drain; ERCP; tw2 - Immunization history:: Adult Immunizations. - Social history:: Smoking status: . - Ebola Screening: : Patient denies travel to an Ebola-affected area in the 21 days before illness onset. - Family history:: not pertinent. ROS: 16:01 Constitutional: Negative for fever, chills, and weight loss, Eyes: Negative for injury, rachelle pain, redness, and discharge, ENT: Negative for injury, pain, and discharge, Neck: Negative for injury, pain, and swelling, Cardiovascular: Negative for chest pain, palpitations, and edema, Respiratory: Negative for shortness of breath, cough, wheezing, and pleuritic chest pain, Back: Negative for injury and pain, : Negative for injury, bleeding, discharge, and swelling, MS/Extremity: Negative for injury and deformity, Skin: Negative for injury, rash, and discoloration, Neuro: Negative for headache, weakness, numbness, tingling, and seizure, Psych: Negative for depression, anxiety, suicide ideation, homicidal ideation, and hallucinations, Allergy/Immunology: Negative for hives, rash, and allergies, Endocrine: Negative for neck swelling, polydipsia, polyuria, polyphagia, and marked weight changes, Hematologic/Lymphatic: Negative for swollen nodes, abnormal bleeding, and unusual bruising. 16:01 Abdomen/GI: Positive for abdominal pain, of the epigastric area, right upper quadrant and left upper quadrant. Exam: 16:01 Constitutional: This is a well developed, well nourished patient who is awake, alert, rachelle and in no acute distress. Head/Face: Normocephalic, atraumatic. Eyes: Pupils equal round and reactive to light, extra-ocular motions intact. Lids and lashes normal. Conjunctiva and sclera are non-icteric and not injected. Cornea within normal limits. Periorbital areas with no swelling, redness, or edema. ENT: Nares patent. No nasal discharge, no septal abnormalities noted. Tympanic membranes are normal and external auditory canals are clear. Oropharynx with no redness, swelling, or masses, exudates, or evidence of obstruction, uvula midline. Mucous membranes moist. Neck: Trachea midline, no thyromegaly or masses palpated, and no cervical lymphadenopathy. Supple, full range of motion without nuchal rigidity, or vertebral point tenderness. No Meningismus. Chest/axilla: Normal chest wall appearance and motion. Nontender with no deformity. No lesions are appreciated. Cardiovascular: Regular rate and rhythm with a normal S1 and S2. No gallops, murmurs, or rubs. Normal PMI, no JVD. No pulse deficits. Respiratory: Lungs have equal breath sounds bilaterally, clear to auscultation and percussion. No rales, rhonchi or wheezes noted. No increased work of breathing, no retractions or nasal flaring. Back: No spinal tenderness. No costovertebral tenderness. Full range of motion. Male : Normal genitalia with no discharge or lesions. Skin: Warm, dry with normal turgor. Normal color with no rashes, no lesions, and no evidence of cellulitis. MS/ Extremity: Pulses equal, no cyanosis. Neurovascular intact. Full, normal range of motion. Neuro: Awake and alert, GCS 15, oriented to person, place, time, and situation. Cranial nerves II-XII grossly intact. Motor strength 5/5 in all extremities. Sensory grossly intact. Cerebellar exam normal. Normal gait. Psych: Awake, alert, with orientation to person, place and time. Behavior, mood, and affect are within normal limits. 16:01 Abdomen/GI: Inspection: abdomen appears normal, Bowel sounds: normal, Palpation: mild abdominal tenderness, moderate abdominal tenderness, in the epigastric area, right upper quadrant and left upper quadrant, Liver: tenderness, that is mild, Hernia: not appreciated. Vital Signs: 14:06 BP 119 / 77; Pulse 102; Resp 19; Temp 97.8(TE); Pulse Ox 95% on R/A; Weight 89.81 kg tw2 (M); Pain 8/10; 15:00 BP 139 / 84; Pulse 77; Resp 16; Pulse Ox 99% on R/A; Pain 5/10; ls4 16:00 BP 124 / 79; Pulse 88; Resp 16; Pulse Ox 99% on R/A; Pain 4/10; ls4 17:00 BP 117 / 84; Pulse 79; Resp 17; Pulse Ox 99% on R/A; Pain 4/10; ls4 18:00 BP 119 / 80; Pulse 92; Resp 16; Pulse Ox 99% on R/A; Pain 6/10; ls4 20:53 BP 122 / 84; Pulse 91; Resp 18; Pulse Ox 99% on R/A; Pain 3/10; ls4 MDM: 14:46 Patient medically screened. [facility] 16:03 Data reviewed: vital signs, nurses notes, lab test result(s), radiologic studies, CT rachelle scan, plain films. 07/09 16:01 Order name: Basic Metabolic Panel; Complete Time: 17:29 [facility] 07/09 16:01 Order name: CBC with Diff; Complete Time: 17:29 [facility] 07/09 16:01 Order name: Creatinine for Radiology; Complete Time: 17:29 [facility] 07/09 16:01 Order name: Hepatic Function; Complete Time: 17:29 [facility] 07/09 16:01 Order name: Lipase; Complete Time: 17:29 [facility] 07/09 16:01 Order name: CT Abd/Pelvis - PO and IV Contrast; Complete Time: 18:06 [facility] 07/09 16:01 Order name: IV Saline Lock; Complete Time: 16:21 [facility] 07/09 16:01 Order name: Chest Single View XRAY; Complete Time: 17:29 [facility] 07/09 16:01 Order name: Labs collected and sent; Complete Time: 16:21 [facility] Administered Medications: 16:20 Drug: Zosyn 3.375 grams Route: IVPB; Infused Over: 60 mins; Site: right antecubital; ls4 17:20 Follow up: IV Status: Completed infusion; IV Intake: 100ml ls4 16:20 Drug: Pepcid 20 mg Route: IVP; Site: right antecubital; ls4 16:50 Follow up: Response: No adverse reaction ls4 16:20 Drug: NS 0.9% 1000 ml Route: IV; Rate: 1 bolus; Site: right antecubital; ls4 17:20 Follow up: IV Status: Completed infusion; IV Intake: 1000ml ls4 16:20 Drug: fentaNYL (PF) 25 mcg Route: IVP; Site: right antecubital; ls4 17:46 Follow up: Response: No adverse reaction; Marked relief of symptoms ls4 16:20 Drug: fentaNYL (PF) 25 mcg Route: IVP; Site: right antecubital; ls4 16:50 Follow up: Response: No adverse reaction ls4 16:20 Drug: Zofran 4 mg Route: IVP; Site: right antecubital; ls4 16:50 Follow up: Response: No adverse reaction ls4 Disposition: 07/09/18 18:13 Transfer ordered to [facility]. Diagnosis are Abdominal tenderness - peripancreatic fluid collections 6 cm x 4 cm, with drain, Pleural effusion, not elsewhere classified - small left. - Reason for transfer: Higher level of care. - Accepting physician is to [facility]. - Condition is Fair. - Problem is new. - Symptoms have improved. Signatures: Dispatcher [employer] EDRush Irvin MD MD cha Wise, Tara, RN RN tw2 Gardenia Bailey RN RN ls4 Corrections: (The following items were deleted from the chart) 20:55 18:13 07/09/2018 18:13 Transfer ordered to [facility]. Diagnosis is ls4 Abdominal tenderness - peripancreatic fluid collections 6 cm x 4 cm, with drain; Pleural effusion, not elsewhere classified - small left. Reason for transfer: Higher level of care. [place] [facility] [facility] [place]. Problem is new. Symptoms have improved. rachelle
--- NOTE | 2018-07-09 18:13 | ER ---
Nurse's Notes [facility] Name: Jann Alvarez Age: 28 yrs Sex: Male : 1990 Arrival Date: 07/09/2018 Time: 13:28 Bed 24 Private MD: Diagnosis: Abdominal tenderness-peripancreatic fluid collections 6 cm x 4 cm, with drain;Pleural effusion, not elsewhere classified-small left Presentation: 07/09 14:03 Presenting complaint: Mother states: he has a ALLEY drain and it doesn't look right, it tw2 looks like meat is coming out, for a couple of days now since Sunday, went to dr twice but they wouldn't look like it in [facility] in [place], i have tried calling them but i cant get in, they didn't give us any instructions and didn't tell us when to see them back for this ALLEY drain, he has it because he has a stent in his gallbladder and he needs surgery but it isnt scheduled yet. Transition of care: patient was not received from another setting of care. Onset of symptoms was July 09, 2018. Risk Assessment: Do you want to hurt yourself or someone else? Patient reports no desire to harm self or others. Initial Sepsis Screen: Does the patient meet any 2 criteria? No. Patient's initial sepsis screen is negative. Does the patient have a suspected source of infection? No. Patient's initial sepsis screen is negative. Care prior to arrival: None. 14:03 Method Of Arrival: Ambulatory tw2 14:03 Acuity: KIMBER 3 tw2 Triage Assessment: 14:07 General: Appears in no apparent distress. Behavior is quiet, pt is "non verbal autistic tw2 per parents and will answer "yeah to everything". 14:08 Pain: Complains of pain in LEFT upper abdomen. GI: Parent/caregiver reports the patient tw2 having odor and "meat" hanging out of the incision site where the ALLEY drain is for his gallbladder. Historical: - Allergies: 14:14 No Known Allergies; tw2 - Home Meds: 14:14 Dulcolax (bisacodyl) 5 mg Oral TbEC 1 tab [Active]; nystatin 100,000 unit/gram Topical tw2 crea 2 times per day [Active]; polyethylene glycol 3350 17 gram oral pwpk 1 packet once daily [Active]; hydrocodone-acetaminophen 10-325 mg Oral tab 1 tab every 4 hours [Active]; - PMHx: 14:14 Autism- Nonverbal; Lupus; Pancreatitis; tw2 - PSHx: 14:14 gall bladder stent x1; ALLEY drain; ERCP; tw2 - Immunization history:: Adult Immunizations. - Social history:: Smoking status: . - Ebola Screening: : Patient denies travel to an Ebola-affected area in the 21 days before illness onset. - Family history:: not pertinent. Screenin:57 Abuse screen: Denies threats or abuse. Denies injuries from another. Nutritional ls4 screening: No deficits noted. Tuberculosis screening: No symptoms or risk factors identified. Fall Risk None identified. Assessment: 14:20 General: Behavior is calm, cooperative. ls4 14:20 Neuro: Level of Consciousness is awake, alert, Oriented to person, situation. ls4 Cardiovascular: Capillary refill < 3 seconds Respiratory: Airway is patent Respiratory effort is even, unlabored, Respiratory pattern is regular. GI: ALLEY drain in left abdomen. dressing in place, some drainage present around tube. serosanguinous drainage in drain. Musculoskeletal: Circulation, motion, and sensation intact. Capillary refill < 3 seconds, Range of motion: intact in all extremities. 15:00 Reassessment: Patient and/or family updated on plan of care and expected duration. Pain ls4 level reassessed. Patient is alert, oriented x 3, equal unlabored respirations, skin warm/dry/pink. 16:00 Reassessment: Patient and/or family updated on plan of care and expected duration. Pain ls4 level reassessed. Patient is alert, oriented x 3, equal unlabored respirations, skin warm/dry/pink. 17:00 Reassessment: Patient and/or family updated on plan of care and expected duration. Pain ls4 level reassessed. Patient is alert, oriented x 3, equal unlabored respirations, skin warm/dry/pink. 18:00 Reassessment: Patient and/or family updated on plan of care and expected duration. Pain ls4 level reassessed. Patient is alert, oriented x 3, equal unlabored respirations, skin warm/dry/pink. 19:00 Reassessment: Patient and/or family updated on plan of care and expected duration. Pain ls4 level reassessed. Patient is alert, oriented x 3, equal unlabored respirations, skin warm/dry/pink. Vital Signs: 14:06 BP 119 / 77; Pulse 102; Resp 19; Temp 97.8(TE); Pulse Ox 95% on R/A; Weight 89.81 kg tw2 (M); Pain 8/10; 15:00 BP 139 / 84; Pulse 77; Resp 16; Pulse Ox 99% on R/A; Pain 5/10; ls4 16:00 BP 124 / 79; Pulse 88; Resp 16; Pulse Ox 99% on R/A; Pain 4/10; ls4 17:00 BP 117 / 84; Pulse 79; Resp 17; Pulse Ox 99% on R/A; Pain 4/10; ls4 18:00 BP 119 / 80; Pulse 92; Resp 16; Pulse Ox 99% on R/A; Pain 6/10; ls4 20:53 BP 122 / 84; Pulse 91; Resp 18; Pulse Ox 99% on R/A; Pain 3/10; ls4 ED Course: 13:28 Patient arrived in ED. mr 14:06 Triage completed. tw2 14:06 Arm band placed on. tw2 14:29 Gardenia Bailey, BRISA is Primary Nurse. ls4 14:46 Rush Briones MD is Attending Physician. [facility] 14:57 Patient has correct armband on for positive identification. Bed in low position. Call ls4 light in reach. Side rails up X 1. 14:57 No provider procedures requiring assistance completed. ls4 16:26 Initial lab(s) drawn, by tx, sent to lab. Inserted saline lock: 20 gauge in right ls4 antecubital area, using aseptic technique. Blood collected. 16:34 Chest Single View XRAY In Process Unspecified. EDMS 17:46 CT completed. Patient tolerated procedure well. Patient moved to CT. Patient moved back nd from CT. 17:47 CT Abd/Pelvis - PO and IV Contrast In Process Unspecified. EDMS 19:54 Report given to RAJNI ANIK RN [facility]. ls4 20:54 Patient transferred, IV remains in place. ls4 Administered Medications: 16:20 Drug: Zosyn 3.375 grams Route: IVPB; Infused Over: 60 mins; Site: right antecubital; ls4 17:20 Follow up: IV Status: Completed infusion; IV Intake: 100ml ls4 16:20 Drug: Pepcid 20 mg Route: IVP; Site: right antecubital; ls4 16:50 Follow up: Response: No adverse reaction ls4 16:20 Drug: NS 0.9% 1000 ml Route: IV; Rate: 1 bolus; Site: right antecubital; ls4 17:20 Follow up: IV Status: Completed infusion; IV Intake: 1000ml ls4 16:20 Drug: fentaNYL (PF) 25 mcg Route: IVP; Site: right antecubital; ls4 17:46 Follow up: Response: No adverse reaction; Marked relief of symptoms ls4 16:20 Drug: fentaNYL (PF) 25 mcg Route: IVP; Site: right antecubital; ls4 16:50 Follow up: Response: No adverse reaction ls4 16:20 Drug: Zofran 4 mg Route: IVP; Site: right antecubital; ls4 16:50 Follow up: Response: No adverse reaction ls4 Intake: 17:20 IV: 1000ml; Total: 1000ml. ls4 17:20 IV: 100ml; Total: 1100ml. ls4 Outcome: 18:13 ER care complete, transfer ordered by MD. bush 19:52 Transferred by ground EMS ls4 20:53 Transferred by ground EMS to [facility], Transfer form completed. ls4 X-rays sent w/ patient. Note: report to [facility]. report to Rajni Naik [facility] [place] [facility] 20:53 Condition: stable 20:53 Discharge instructions given to family, Instructed on the need for transfer, Demonstrated understanding of instructions. 20:55 Patient left the ED. ls4 Signatures: Dispatcher [employer] EDRush Irvin MD MD cha Rivera, Mary mr Wise, Tara, RN RN tw2 Everardo Wong Lisa, RN RN ls4 Corrections: (The following items were deleted from the chart) 14:09 14:07 Pain: Complains of pain in diaphragm tw2 tw2 16:43 06:20 Zofran 4 mg IVP in right antecubital ls4 ls4
== END 2018-07-09 20:55 | disposition short-term general hospital (02) ==
LOC: ER 13:26
DX: J90 Pleural effusion, not elsewhere classified (principal); Z98.890 Other specified postprocedural states
CPT/HCPCS: 36415; 71045; 74177; 80048; 80076; 83690; 85025; 96365; 96375; 99285; J2405; J2543; J3010; J7030; Q9967

== ENCOUNTER 2018-07-26 04:43 | Emergency (ER) | payer OTHER ==
--- OUTSIDE RECORDS SUMMARY | 2018-07-26 04:48 | XMS REPORT | Clinical Summary ---
:1990 Author Organization [facility] Address [address] [place] [address] Care Team Providers Name Role Phone Zac Coughlin Montrell Primary Care Provider Allergies Active Allergy Reactions Severity Noted Date Comments Meropenem-0.9% Sodium Hives, Itching Medium 07/12/2018 Chloride Piperacillin-Tazobactam Swelling, Rash High 07/15/2018 Pt received Zosyn and vancomycin, and subsequently developed a rash with lip swelling. A few days prior to this, pt developed a rash to meropenem. Medications Medication Sig Dispensed Refills Start Date End Date Status nystatin Apply topically 15 g 0 06/16/2018 Active (MYCOSTATIN) 2 (two) times 0 100,000 unit/gram daily. powder docusate sodium Take 1 capsule 30 capsule 0 07/19/2018 Active (COLACE) 100 MG (100 mg total) 9 capsule by mouth daily for 30 days. HYDROcodone-acetam Take 1 tablet 30 tablet 0 07/19/2018 Active inophen (NORCO by mouth 3 10-325) 10-325 mg (three) times per tablet daily as needed. Max Daily Amount: 3 tablets docusate sodium Take 1 capsule 30 capsule 0 06/17/2018 Discontinued (COLACE) 100 MG (100 mg total) 9 capsule by mouth daily for 30 days. HYDROcodone-acetam Take 1 tablet 30 tablet 0 06/16/2018 inophen (NORCO by mouth every 9 5-325) 5-325 mg 8 (eight) hours per tablet as needed for up to 10 days. Max Daily Amount: 3 tablets polyethylene Take 17 g by 14 each 0 06/16/2018 glycol (GLYCOLAX) mouth daily as 9 17 gram packet needed (constipation) for up to 3 days. HYDROcodone-acetam Take 1 tablet 0 07/05/2018 Discontinued inophen (NORCO by mouth 3 9 10-325) 10-325 mg (three) times per tablet daily as needed. Active Problems Problem Noted Date Peripancreatic fluid collection 07/11/2018 Cholangitis 05/30/2018 Encounters Date Type Specialty Care Team Description 07/18/2018 Anesthesia Event Gastroenterology Cha Meaz, DO 07/18/2018 Surgery Gastroenterology Negro Billings UPPER ENDOSCOPY MD Luz Marina 07/16/2018 Surgery GastroenterWilmer Fenton MD ENDOSCOPY,PANCREATIC NECROSECTOMY 07/16/2018 Anesthesia Event Gastroenterology Damian Ceron, OIL FIELD TECHNICIAN 07/14/2018 Travel 07/13/2018 Anesthesia Event Gastroenterology Alhaji Hall, OIL FIELD TECHNICIAN 07/13/2018 Surgery Gastroenterology Uriah Childs UPPER ENDOSCOPY Argelia 07/11/2018 Surgery Gastroenterology Wilmer Santiago UPPER ENDOSCOPY,FNA MD Kai W/ULTRASOUND 07/11/2018 Anesthesia Event Gastroenterology Janet Reed, OIL FIELD TECHNICIAN 07/09/2018 [facility] Internal García Menard, Pseudocyst of pancreas; - Encounter Medicine Autism disorder; 07/19/2018 Tina Oneill ALLEY drain, broken, initial encounter; MD Day Peripancreatic fluid collection; Al-Himyary, Ali Sepsis, due to unspecified organism (HCC); Yumi Fraser MD Adverse effect of drug, initial encounter 06/02/2018 Travel 05/31/2018 Anesthesia Event Gastroenterology Zachary Richmond MD 05/31/2018 Surgery Gastroenterology Wilmer Santiago ERCP,PAPILLOTOMY MD Kai 05/30/2018 [facility] Internal Herve, Cholangitis; - Encounter Medicine Wyatt Acute pancreatitis, unspecified complication status, unspecified pancreatitis type; 06/16/2018 MD Mitchell Autism; Alphonso, Dipaben Requires supplemental oxygen; MD Onel Diarrhea, unspecified type; Oscar, Gallstone pancreatitis; Negin Connors, Prolonged pt (prothrombin time); Prolonged PTT; Kellen Toro MD Epigastric abdominal pain Jasmin Monsivais MD 05/30/2018 Telephone Critical Care Medicine Herve, [id number] Call Wyatt Medrano MD after 07/25/2017 Social History Tobacco Use Types Packs/Day Years Used Date Never Smoker Smokeless Tobacco: Never Used Sex Assigned at Date Recorded Not on file Job Start Date Occupation Industry Not on file Not on file Not on file Travel History Travel Start Travel End No recent travel history available. Last Filed Vital Signs Vital Sign Reading Time Taken Blood Pressure 118/71 07/19/2018 7:44 AM CDT Pulse 83 07/19/2018 8:59 AM CDT Temperature 36.2 C (97.2 F) 07/19/2018 7:44 AM CDT Respiratory Rate 18 07/19/2018 8:59 AM CDT Oxygen Saturation 94% 07/19/2018 8:59 AM CDT Inhaled Oxygen Concentration - - Weight 84.9 kg (187 lb 3.2 oz) 07/19/2018 6:00 AM CDT Height 177.8 cm (5' 10") 07/11/2018 8:55 AM CDT Body Mass Index 26.86 07/19/2018 6:00 AM CDT Plan of Treatment Not on file Implants Implanted Type Area Services Engineer Device Shelf Model / Identifier Expiration Serial / Date Lot Stent Bili Advanix [id number] - [id number] Stents-P [place] 03/10/2020 [id number] / Implanted: Qty: 1 on 05/31/2018 by Wilmer Santiago MD eriphera SCI: PERIPHERAL / l INTERV Axios [id number] Electrocautery Enhanced Steny NATRONA [id number] / Implanted: Qty: 1 on 07/11/2018 by Wilmer Santiago MD SCIENTIFIC / Procedures Procedure Name Priority Date/Time Associated Diagnosis Comments REPORT OF PROCEDURE - 07/24/2018 7:50 ENDOSCOPY URL AM CDT RHYTHM STRIP - SCAN 07/22/2018 11:40 AM CDT POCT-GLUCOSE METER Routine 07/19/2018 12:03 Results for this PM CDT procedure are in the results section. POCT-GLUCOSE METER Routine 07/19/2018 7:56 Results for this AM CDT procedure are in the results section. BASIC METABOLIC PANEL Routine 07/19/2018 5:03 Results for this (7) AM CDT procedure are in the results section. POCT-GLUCOSE METER Routine 07/18/2018 10:24 Results for this PM CDT procedure are in the results section. UPPER ENDOSCOPY 07/18/2018 2:00 Acute pancreatitis, PM CDT unspecified complication status, unspecified pancreatitis type POCT-GLUCOSE METER Routine 07/18/2018 12:20 Results for this PM CDT procedure are in the results section. BASIC METABOLIC PANEL Routine 07/18/2018 9:05 Results for this (7) AM CDT procedure are in the results section. POCT-GLUCOSE METER Routine 07/18/2018 8:36 Results for this AM CDT procedure are in the results section. POCT-GLUCOSE METER Routine 07/17/2018 9:27 Results for this PM CDT procedure are in the results section. POCT-GLUCOSE METER Routine 07/17/2018 5:31 Results for this PM CDT procedure are in the results section. POTASSIUM Routine 07/17/2018 2:01 Results for this PM CDT procedure are in the results section. POCT-GLUCOSE METER Routine 07/17/2018 11:29 Results for this AM CDT procedure are in the results section. POCT-GLUCOSE METER Routine 07/17/2018 9:35 Results for this AM CDT procedure are in the results section. PHOSPHORUS Routine 07/17/2018 6:00 Results for this AM CDT procedure are in the results section. MAGNESIUM Routine 07/17/2018 6:00 Results for this AM CDT procedure are in the results section. CALCIUM, IONIZED Routine 07/17/2018 6:00 Results for this AM CDT procedure are in the results section. BASIC METABOLIC PANEL Routine 07/17/2018 6:00 Results for this (7) AM CDT procedure are in the results section. POCT-GLUCOSE METER Routine 07/16/2018 9:45 Results for this PM CDT procedure are in the results section. POCT-GLUCOSE METER Routine 07/16/2018 5:45 Results for this PM CDT procedure are in the results section. UPPER 07/16/2018 12:30 Acute pancreatitis, ENDOSCOPY,PANCREATIC PM CDT unspecified NECROSECTOMY complication status, unspecified pancreatitis type Special Needs (PLEASE HAVE HYDROGEN PEROXIDE AVAILABLE) POCT-GLUCOSE METER Routine 07/16/2018 11:16 Results for this AM CDT procedure are in the results section. POCT-GLUCOSE METER Routine 07/16/2018 7:53 Results for this AM CDT procedure are in the results section. CBC W/PLT COUNT & AUTO Routine 07/16/2018 4:16 Results for this DIFFERENTIAL AM CDT procedure are in the results section. PROTHROMBIN TIME/INR Routine 07/16/2018 4:16 Results for this AM CDT procedure are in the results section. PT/APTT Routine 07/16/2018 4:16 Results for this AM CDT procedure are in the results section. CBC W/PLT COUNT & AUTO Routine 07/16/2018 4:16 Results for this DIFFERENTIAL AM CDT procedure are in the results section. PHOSPHORUS Routine 07/16/2018 4:16 Results for this AM CDT procedure are in the results section. MAGNESIUM Routine 07/16/2018 4:16 Results for this AM CDT procedure are in the results section. CALCIUM, IONIZED Routine 07/16/2018 4:16 Results for this AM CDT procedure are in the results section. BASIC METABOLIC PANEL Routine 07/16/2018 4:16 Results for this (7) AM CDT procedure are in the results section. POCT-GLUCOSE METER Routine 07/15/2018 10:05 Results for this PM CDT procedure are in the results section. POCT-GLUCOSE METER Routine 07/15/2018 6:30 Results for this PM CDT procedure are in the results section. POCT-GLUCOSE METER Routine 07/15/2018 12:27 Results for this PM CDT procedure are in the results section. XR CHEST 1 VIEW Routine 07/15/2018 10:25 Results for this PORTABLE/BEDSIDE AM CDT procedure are in the results section. POCT-GLUCOSE METER Routine 07/15/2018 8:34 Results for this AM CDT procedure are in the results section. CBC W/PLT COUNT & AUTO Routine 07/15/2018 3:32 Results for this DIFFERENTIAL AM CDT procedure are in the results section. PHOSPHORUS Routine 07/15/2018 3:32 Results for this AM CDT procedure are in the results section. MAGNESIUM Routine 07/15/2018 3:32 Results for this AM CDT procedure are in the results section. CALCIUM, IONIZED Routine 07/15/2018 3:32 Results for this AM CDT procedure are in the results section. BASIC METABOLIC PANEL Routine 07/15/2018 3:32 Results for this (7) AM CDT procedure are in the results section. CBC W/PLT COUNT & AUTO Routine 07/15/2018 3:32 Results for this DIFFERENTIAL AM CDT procedure are in the results section. POCT-GLUCOSE METER Routine 07/14/2018 11:18 Results for this PM CDT procedure are in the results section. C. DIFFICILE GDH TOXIN Routine 07/14/2018 8:52 Results for this PM CDT procedure are in the results section. POCT-GLUCOSE METER Routine 07/14/2018 5:39 Results for this PM CDT procedure are in the results section. CALCIUM, IONIZED Routine 07/14/2018 5:27 Results for this PM CDT procedure are in the results section. MAGNESIUM Routine 07/14/2018 5:27 Results for this PM CDT procedure are in the results section. BASIC METABOLIC PANEL Routine 07/14/2018 5:27 Results for this (7) PM CDT procedure are in the results section. TRIGLYCERIDES Routine 07/14/2018 5:27 Results for this PM CDT procedure are in the results section. POCT-GLUCOSE METER Routine 07/14/2018 11:42 Results for this AM CDT procedure are in the results section. CALCIUM, IONIZED Routine 07/14/2018 9:12 Results for this AM CDT procedure are in the results section. CBC W/PLT COUNT & AUTO Routine 07/14/2018 8:32 Results for this DIFFERENTIAL AM CDT procedure are in the results section. HEPATIC FUNCTION PANEL Routine 07/14/2018 8:32 Results for this AM CDT procedure are in the results section. PHOSPHORUS Routine 07/14/2018 8:32 Results for this AM CDT procedure are in the results section. MAGNESIUM Routine 07/14/2018 8:32 Results for this AM CDT procedure are in the results section. BASIC METABOLIC PANEL Routine 07/14/2018 8:32 Results for this (7) AM CDT procedure are in the results section. CBC W/PLT COUNT & AUTO Routine 07/14/2018 8:32 Results for this DIFFERENTIAL AM CDT procedure are in the results section. POCT-GLUCOSE METER Routine 07/14/2018 6:07 Results for this AM CDT procedure are in the results section. POCT-GLUCOSE METER Routine 07/13/2018 11:09 Results for this PM CDT procedure are in the results section. POCT-GLUCOSE METER Routine 07/13/2018 6:24 Results for this PM CDT procedure are in the results section. XR CHEST 1 VIEW LAURA 07/13/2018 4:44 Results for this PORTABLE/BEDSIDE PM CDT procedure are in the results section. REPORT OF PROCEDURE - 07/13/2018 4:00 ENDOSCOPY URL PM CDT UPPER ENDOSCOPY 07/13/2018 12:00 Acute pancreatitis, PM CDT unspecified complication status, unspecified pancreatitis type POCT-GLUCOSE METER Routine 07/13/2018 11:40 Results for this AM CDT procedure are in the results section. POCT-GLUCOSE METER Routine 07/13/2018 5:50 Results for this AM CDT procedure are in the results section. CT ABDOMEN/PELVIS Routine 07/13/2018 4:56 Results for this WITHOUT IV CONTRAST AM CDT procedure are in the results section. XR CHEST 1 VIEW STAT 07/13/2018 12:10 Results for this PORTABLE/BEDSIDE AM CDT procedure are in the results section. POCT-GLUCOSE METER Routine 07/12/2018 11:29 Results for this PM CDT procedure are in the results section. XR CHEST 1 VIEW Routine 07/12/2018 8:32 Results for this PORTABLE/BEDSIDE PM CDT procedure are in the results section. POCT-GLUCOSE METER Routine 07/12/2018 6:18 Results for this PM CDT procedure are in the results section. LACTIC ACID, VENOUS Routine 07/12/2018 4:32 Results for this PM CDT procedure are in the results section. REPORT OF PROCEDURE - 07/12/2018 12:46 ENDOSCOPY URL PM CDT POCT-GLUCOSE METER Routine 07/12/2018 12:07 Results for this PM CDT procedure are in the results section. POCT-GLUCOSE METER Routine 07/12/2018 10:06 Results for this AM CDT procedure are in the results section. LACTIC ACID, VENOUS STAT 07/12/2018 6:09 Results for this AM CDT procedure are in the results section. POCT-LACTIC ACID, Routine 07/12/2018 2:03 Results for this VENOUS AM CDT procedure are in the results section. POCT-HEMOGLOBIN Routine 07/12/2018 1:58 Results for this AM CDT procedure are in the results section. POCT-HEMATOCRIT Routine 07/12/2018 1:58 Results for this AM CDT procedure are in the results section. POCT-CALCIUM IONIZED Routine 07/12/2018 1:58 Results for this AM CDT procedure are in the results section. POCT-GLUCOSE Routine 07/12/2018 1:58 Results for this AM CDT procedure are in the results section. POCT-POTASSIUM Routine 07/12/2018 1:58 Results for this AM CDT procedure are in the results section. POCT-SODIUM Routine 07/12/2018 1:58 Results for this AM CDT procedure are in the results section. POCT-BLOOD GASES, Routine 07/12/2018 1:58 Results for this VENOUS AM CDT procedure are in the results section. XR ABDOMEN 1 VIEW STAT 07/12/2018 1:45 Results for this AM CDT procedure are in the results section. ECG 12-LEAD STAT 07/12/2018 1:32 Results for this AM CDT procedure are in the results section. CBC W/PLT COUNT & AUTO Routine 07/12/2018 1:11 Results for this DIFFERENTIAL AM CDT procedure are in the results section. CBC W/PLT COUNT & AUTO Routine 07/12/2018 1:11 Results for this DIFFERENTIAL AM CDT procedure are in the results section. BLOOD CULTURE Routine 07/12/2018 1:05 Results for this AM CDT procedure are in the results section. HEPATIC FUNCTION PANEL Routine 07/12/2018 12:57 Results for this AM CDT procedure are in the results section. BASIC METABOLIC PANEL Routine 07/12/2018 12:57 Results for this (7) AM CDT procedure are in the results section. BLOOD CULTURE Routine 07/12/2018 12:57 Results for this AM CDT procedure are in the results section. POCT-GLUCOSE METER Routine 07/12/2018 12:12 Results for this AM CDT procedure are in the results section. POCT-GLUCOSE METER Routine 07/11/2018 5:34 Results for this PM CDT procedure are in the results section. VANCOMYCIN LEVEL, Timed 07/11/2018 1:52 Results for this TROUGH PM CDT procedure are in the results section. POCT-GLUCOSE METER Routine 07/11/2018 12:13 Results for this PM CDT procedure are in the results section. UPPER ENDOSCOPY,FNA 07/11/2018 10:00 Pancreatic W/ULTRASOUND AM CDT pseudocyst Special Needs (C-ARM, LINEAR SCOPE) CBC W/PLT COUNT & AUTO Routine 07/11/2018 4:51 AM Results for this DIFFERENTIAL CDT procedure are in the results section. CBC W/PLT COUNT & AUTO Routine 07/11/2018 4:51 AM Results for this DIFFERENTIAL CDT procedure are in the results section. HEPATIC FUNCTION PANEL Routine 07/11/2018 4:51 AM Results for this CDT procedure are in the results section. BASIC METABOLIC PANEL Routine 07/11/2018 4:51 AM Results for this (7) CDT procedure are in the results section. PROTHROMBIN TIME/INR Routine 07/10/2018 10:45 AM Results for this CDT procedure are in the results section. APTT Routine 07/10/2018 10:45 AM Results for this CDT procedure are in the results section. WOUND CULTURE + GRAM STAT 07/10/2018 1:22 AM Results for this STAIN CDT procedure are in the results section. BLOOD CULTURE Routine 07/10/2018 1:05 AM Results for this CDT procedure are in the results section. CBC W/PLT COUNT & AUTO Routine 07/10/2018 12:59 AM Results for this DIFFERENTIAL CDT procedure are in the results section. HEPATIC FUNCTION PANEL Routine 07/10/2018 12:59 AM Results for this CDT procedure are in the results section. BASIC METABOLIC PANEL Routine 07/10/2018 12:59 AM Results for this (7) CDT procedure are in the results section. CBC W/PLT COUNT & AUTO Routine 07/10/2018 12:59 AM Results for this DIFFERENTIAL CDT procedure are in the results section. BLOOD CULTURE Routine 07/10/2018 12:59 AM Results for this CDT procedure are in the results section. RHYTHM STRIP - SCAN 06/18/2018 7:50 AM CDT PT/APTT Routine 06/16/2018 6:29 AM Results for this CDT procedure are in the results section. CBC W/PLT COUNT & AUTO Routine 06/16/2018 6:28 AM Results for this DIFFERENTIAL CDT procedure are in the results section. CBC W/PLT COUNT & AUTO Routine 06/16/2018 6:28 AM Results for this DIFFERENTIAL CDT procedure are in the results section. MAGNESIUM Routine 06/16/2018 6:28 AM Results for this CDT procedure are in the results section. HEPATIC FUNCTION PANEL Routine 06/16/2018 6:28 AM Results for this CDT procedure are in the results section. BASIC METABOLIC PANEL Routine 06/16/2018 6:28 AM Results for this (7) CDT procedure are in the results section. CBC W/PLT COUNT & AUTO Routine 06/15/2018 6:33 AM Results for this DIFFERENTIAL CDT procedure are in the results section. CBC W/PLT COUNT & AUTO Routine 06/15/2018 6:33 AM Results for this DIFFERENTIAL CDT procedure are in the results section. MAGNESIUM Routine 06/15/2018 6:32 AM Results for this CDT procedure are in the results section. PROTHROMBIN TIME/INR Routine 06/15/2018 6:32 AM Results for this CDT procedure are in the results section. PT/APTT Routine 06/15/2018 6:32 AM Results for this CDT procedure are in the results section. HEPATIC FUNCTION PANEL Routine 06/15/2018 6:32 AM Results for this CDT procedure are in the results section. BASIC METABOLIC PANEL Routine 06/15/2018 6:32 AM Results for this (7) CDT procedure are in the results section. BETA-2 GLYCOPROTEIN Routine 06/14/2018 4:34 PM Results for this ANTIBODIES CDT procedure are in the results section. CBC W/PLT COUNT & AUTO Routine 06/14/2018 5:40 AM Results for this DIFFERENTIAL CDT procedure are in the results section. CBC W/PLT COUNT & AUTO Routine 06/14/2018 5:40 AM Results for this DIFFERENTIAL CDT procedure are in the results section. MAGNESIUM Routine 06/14/2018 5:40 AM Results for this CDT procedure are in the results section. PROTHROMBIN TIME/INR Routine 06/14/2018 5:40 AM Results for this CDT procedure are in the results section. PT/APTT Routine 06/14/2018 5:40 AM Results for this CDT procedure are in the results section. HEPATIC FUNCTION PANEL Routine 06/14/2018 5:40 AM Results for this CDT procedure are in the results section. BASIC METABOLIC PANEL Routine 06/14/2018 5:40 AM Results for this (7) CDT procedure are in the results section. HEXAGONAL PHOSPHOLIPID AP Routine 06/13/2018 12:20 PM Results for this CDT procedure are in the results section. THROMBIN TIME Routine 06/13/2018 12:20 PM Results for this CDT procedure are in the results section. EQUAL MIX, NORMAL AP Routine 06/13/2018 12:20 PM Results for this PLASMA CDT procedure are in the results section. LUPUS ANTICOAGULANT AP Routine 06/13/2018 12:20 PM Results for this SCREEN WITH REFLEX TO CDT procedure are in CONFIRMATORY the results section. CARDIOLIPIN ANTIBODIES, Routine 06/13/2018 12:20 PM Results for this IGG AND IGM CDT procedure are in the results section. FIBRINOGEN Routine 06/13/2018 12:20 PM Results for this CDT procedure are in the results section. MAGNESIUM Routine 06/13/2018 10:04 AM Results for this CDT procedure are in the results section. HEPATIC FUNCTION PANEL Routine 06/13/2018 10:04 AM Results for this CDT procedure are in the results section. BASIC METABOLIC PANEL Routine 06/13/2018 10:04 AM Results for this (7) CDT procedure are in the results section. CBC W/PLT COUNT & AUTO Routine 06/13/2018 5:55 AM Results for this DIFFERENTIAL CDT procedure are in the results section. CBC W/PLT COUNT & AUTO Routine 06/13/2018 5:55 AM Results for this DIFFERENTIAL CDT procedure are in the results section. PROTHROMBIN TIME/INR Routine 06/13/2018 5:55 AM Results for this CDT procedure are in the results section. PT/APTT Routine 06/13/2018 5:55 AM Results for this CDT procedure are in the results section. CBC W/PLT COUNT & AUTO Routine 06/12/2018 5:20 AM Results for this DIFFERENTIAL CDT procedure are in the results section. CBC W/PLT COUNT & AUTO Routine 06/12/2018 5:20 AM Results for this DIFFERENTIAL CDT procedure are in the results section. MAGNESIUM Routine 06/12/2018 5:20 AM Results for this CDT procedure are in the results section. PROTHROMBIN TIME/INR Routine 06/12/2018 5:20 AM Results for this CDT procedure are in the results section. PT/APTT Routine 06/12/2018 5:20 AM Results for this CDT procedure are in the results section. HEPATIC FUNCTION PANEL Routine 06/12/2018 5:20 AM Results for this CDT procedure are in the results section. BASIC METABOLIC PANEL Routine 06/12/2018 5:20 AM Results for this (7) CDT procedure are in the results section. XR CHEST 1 VIEW STAT 06/11/2018 5:55 PM Results for this PORTABLE/BEDSIDE CDT procedure are in the results section. B-TYPE NATRIURETIC Routine 06/11/2018 2:51 PM Results for this FACTOR (BNP) CDT procedure are in the results section. CBC W/PLT COUNT & AUTO Routine 06/11/2018 5:06 AM Results for this DIFFERENTIAL CDT procedure are in the results section. CBC W/PLT COUNT & AUTO Routine 06/11/2018 5:06 AM Results for this DIFFERENTIAL CDT procedure are in the results section. MAGNESIUM Routine 06/11/2018 5:06 AM Results for this CDT procedure are in the results section. PROTHROMBIN TIME/INR Routine 06/11/2018 5:06 AM Results for this CDT procedure are in the results section. PT/APTT Routine 06/11/2018 5:06 AM Results for this CDT procedure are in the results section. HEPATIC FUNCTION PANEL Routine 06/11/2018 5:06 AM Results for this CDT procedure are in the results section. BASIC METABOLIC PANEL Routine 06/11/2018 5:06 AM Results for this (7) CDT procedure are in the results section. CBC W/PLT COUNT & AUTO Routine 06/10/2018 5:16 AM Results for this DIFFERENTIAL CDT procedure are in the results section. CBC W/PLT COUNT & AUTO Routine 06/10/2018 5:16 AM Results for this DIFFERENTIAL CDT procedure are in the results section. MAGNESIUM Routine 06/10/2018 5:16 AM Results for this CDT procedure are in the results section. PT/APTT Routine 06/10/2018 5:16 AM Results for this CDT procedure are in the results section. HEPATIC FUNCTION PANEL Routine 06/10/2018 5:16 AM Results for this CDT procedure are in the results section. BASIC METABOLIC PANEL Routine 06/10/2018 5:16 AM Results for this (7) CDT procedure are in the results section. CBC W/PLT COUNT & AUTO Routine 06/09/2018 5:49 AM Results for this DIFFERENTIAL CDT procedure are in the results section. CBC W/PLT COUNT & AUTO Routine 06/09/2018 5:49 AM Results for this DIFFERENTIAL CDT procedure are in the results section. MAGNESIUM Routine 06/09/2018 5:49 AM Results for this CDT procedure are in the results section. PROTHROMBIN TIME/INR Routine 06/09/2018 5:49 AM Results for this CDT procedure are in the results section. PT/APTT Routine 06/09/2018 5:49 AM Results for this CDT procedure are in the results section. HEPATIC FUNCTION PANEL Routine 06/09/2018 5:49 AM Results for this CDT procedure are in the results section. BASIC METABOLIC PANEL Routine 06/09/2018 5:49 AM Results for this (7) CDT procedure are in the results section. CBC W/PLT COUNT & AUTO Routine 06/08/2018 4:39 AM Results for this DIFFERENTIAL CDT procedure are in the results section. VANCOMYCIN LEVEL, Timed 06/08/2018 4:39 AM Results for this TROUGH CDT procedure are in the results section. CBC W/PLT COUNT & AUTO Routine 06/08/2018 4:39 AM Results for this DIFFERENTIAL CDT procedure are in the results section. MAGNESIUM Routine 06/08/2018 4:39 AM Results for this CDT procedure are in the results section. PROTHROMBIN TIME/INR Routine 06/08/2018 4:39 AM Results for this CDT procedure are in the results section. PT/APTT Routine 06/08/2018 4:39 AM Results for this CDT procedure are in the results section. HEPATIC FUNCTION PANEL Routine 06/08/2018 4:39 AM Results for this CDT procedure are in the results section. BASIC METABOLIC PANEL Routine 06/08/2018 4:39 AM Results for this (7) CDT procedure are in the results section. REPORT OF PROCEDURE - 06/07/2018 3:15 PM ENDOSCOPY URL CDT XR CHEST 1 VIEW Routine 06/07/2018 3:13 PM Results for this PORTABLE/BEDSIDE CDT procedure are in the results section. URINALYSIS W/ REFLEX Routine 06/07/2018 1:47 PM Results for this URINE CULTURE CDT procedure are in the results section. BODY FLUID CULTURE + Routine 06/07/2018 1:42 PM Results for this GRAM STAIN CDT procedure are in the results section. INCUBATED 1:1 MIXING Routine 06/07/2018 11:47 AM Results for this STUDY CDT procedure are in the results section. CBC W/PLT COUNT & AUTO Routine 06/07/2018 3:35 AM Results for this DIFFERENTIAL CDT procedure are in the results section. CBC W/PLT COUNT & AUTO Routine 06/07/2018 3:35 AM Results for this DIFFERENTIAL CDT procedure are in the results section. MAGNESIUM Routine 06/07/2018 3:35 AM Results for this CDT procedure are in the results section. PROTHROMBIN TIME/INR Routine 06/07/2018 3:35 AM Results for this CDT procedure are in the results section. PT/APTT Routine 06/07/2018 3:35 AM Results for this CDT procedure are in the results section. HEPATIC FUNCTION PANEL Routine 06/07/2018 3:35 AM Results for this CDT procedure are in the results section. BASIC METABOLIC PANEL Routine 06/07/2018 3:35 AM Results for this (7) CDT procedure are in the results section. CT DRAINAGE ABDOMINAL Routine 06/06/2018 5:49 PM Results for this CDT procedure are in the results section. CBC W/PLT COUNT & AUTO Routine 06/06/2018 1:38 AM Results for this DIFFERENTIAL CDT procedure are in the results section. CBC W/PLT COUNT & AUTO Routine 06/06/2018 1:38 AM Results for this DIFFERENTIAL CDT procedure are in the results section. MAGNESIUM Routine 06/06/2018 1:38 AM Results for this CDT procedure are in the results section. PROTHROMBIN TIME/INR Routine 06/06/2018 1:38 AM Results for this CDT procedure are in the results section. PT/APTT Routine 06/06/2018 1:38 AM Results for this CDT procedure are in the results section. HEPATIC FUNCTION PANEL Routine 06/06/2018 1:38 AM Results for this CDT procedure are in the results section. BASIC METABOLIC PANEL Routine 06/06/2018 1:38 AM Results for this (7) CDT procedure are in the results section. VANCOMYCIN LEVEL, Timed 06/06/2018 1:38 AM Results for this TROUGH CDT procedure are in the results section. C. DIFFICILE GDH TOXIN Routine 06/05/2018 6:48 PM Results for this CDT procedure are in the results section. FIBRINOGEN Routine 06/05/2018 4:16 PM Results for this CDT procedure are in the results section. CT ABDOMEN/PELVIS WITH LAURA 06/05/2018 11:18 AM Results for this IV CONTRAST CDT procedure are in the results section. (CELLAVISION MANUAL Routine 06/05/2018 3:14 AM Results for this DIFF) CDT procedure are in the results section. CBC W/PLT COUNT & AUTO Routine 06/05/2018 3:14 AM Results for this DIFFERENTIAL CDT procedure are in the results section. CBC W/PLT COUNT & AUTO Routine 06/05/2018 3:14 AM Results for this DIFFERENTIAL CDT procedure are in the results section. MAGNESIUM Routine 06/05/2018 3:14 AM Results for this CDT procedure are in the results section. PROTHROMBIN TIME/INR Routine 06/05/2018 3:14 AM Results for this CDT procedure are in the results section. PT/APTT Routine 06/05/2018 3:14 AM Results for this CDT procedure are in the results section. HEPATIC FUNCTION PANEL Routine 06/05/2018 3:14 AM Results for this CDT procedure are in the results section. BASIC METABOLIC PANEL Routine 06/05/2018 3:14 AM Results for this (7) CDT procedure are in the results section. BLOOD CULTURE Routine 06/04/2018 2:00 PM Results for this CDT procedure are in the results section. LACTIC ACID, VENOUS Routine 06/04/2018 1:44 PM Results for this CDT procedure are in the results section. BLOOD CULTURE Routine 06/04/2018 1:44 PM Results for this CDT procedure are in the results section. PROCALCITONIN Routine 06/04/2018 1:42 PM Results for this CDT procedure are in the results section. (CELLAVISION MANUAL Routine 06/04/2018 5:06 AM Results for this DIFF) CDT procedure are in the results section. CBC W/PLT COUNT & AUTO Routine 06/04/2018 5:06 AM Results for this DIFFERENTIAL CDT procedure are in the results section. CBC W/PLT COUNT & AUTO Routine 06/04/2018 5:06 AM Results for this DIFFERENTIAL CDT procedure are in the results section. MAGNESIUM Routine 06/04/2018 5:06 AM Results for this CDT procedure are in the results section. PROTHROMBIN TIME/INR Routine 06/04/2018 5:06 AM Results for this CDT procedure are in the results section. PT/APTT Routine 06/04/2018 5:06 AM Results for this CDT procedure are in the results section. HEPATIC FUNCTION PANEL Routine 06/04/2018 5:06 AM Results for this CDT procedure are in the results section. BASIC METABOLIC PANEL Routine 06/04/2018 5:06 AM Results for this (7) CDT procedure are in the results section. CBC W/PLT COUNT & AUTO Routine 06/03/2018 5:33 AM Results for this DIFFERENTIAL CDT procedure are in the results section. CBC W/PLT COUNT & AUTO Routine 06/03/2018 5:33 AM Results for this DIFFERENTIAL CDT procedure are in the results section. MAGNESIUM Routine 06/03/2018 5:33 AM Results for this CDT procedure are in the results section. PROTHROMBIN TIME/INR Routine 06/03/2018 5:33 AM Results for this CDT procedure are in the results section. PT/APTT Routine 06/03/2018 5:33 AM Results for this CDT procedure are in the results section. HEPATIC FUNCTION PANEL Routine 06/03/2018 5:33 AM Results for this CDT procedure are in the results section. BASIC METABOLIC PANEL Routine 06/03/2018 5:33 AM Results for this (7) CDT procedure are in the results section. CBC W/PLT COUNT & AUTO Routine 06/02/2018 3:49 AM Results for this DIFFERENTIAL CDT procedure are in the results section. CBC W/PLT COUNT & AUTO Routine 06/02/2018 3:49 AM Results for this DIFFERENTIAL CDT procedure are in the results section. MAGNESIUM Routine 06/02/2018 3:49 AM Results for this CDT procedure are in the results section. PROTHROMBIN TIME/INR Routine 06/02/2018 3:49 AM Results for this CDT procedure are in the results section. PT/APTT Routine 06/02/2018 3:49 AM Results for this CDT procedure are in the results section. HEPATIC FUNCTION PANEL Routine 06/02/2018 3:49 AM Results for this CDT procedure are in the results section. BASIC METABOLIC PANEL Routine 06/02/2018 3:49 AM Results for this (7) CDT procedure are in the results section. US ABDOMEN LIMITED STAT 06/01/2018 1:36 PM Results for this CDT procedure are in the results section. CBC W/PLT COUNT & AUTO Routine 06/01/2018 5:00 AM Results for this DIFFERENTIAL CDT procedure are in the results section. CBC W/PLT COUNT & AUTO Routine 06/01/2018 5:00 AM Results for this DIFFERENTIAL CDT procedure are in the results section. MAGNESIUM Routine 06/01/2018 5:00 AM Results for this CDT procedure are in the results section. PROTHROMBIN TIME/INR Routine 06/01/2018 5:00 AM Results for this CDT procedure are in the results section. PT/APTT Routine 06/01/2018 5:00 AM Results for this CDT procedure are in the results section. HEPATIC FUNCTION PANEL Routine 06/01/2018 5:00 AM Results for this CDT procedure are in the results section. BASIC METABOLIC PANEL Routine 06/01/2018 5:00 AM Results for this (7) CDT procedure are in the results section. FL ERCP Routine 05/31/2018 2:22 PM Results for this CDT procedure are in the results section. ERCP,BILIARY STENT 05/31/2018 1:00 PM Cholangitis CDT Special Needs ercp w/ anes and [...] CULTURE Routine 05/30/2018 8:44 PM CDT after 07/25/2017 Results REPORT OF PROCEDURE - ENDOSCOPY URL (07/24/2018 7:50 AM CDT) Narrative Performed At RHYTHM STRIP - SCAN (07/22/2018 11:40 AM CDT)Only the most recent of2 resultswithin the time period is included. Narrative Performed At POC-Glucose meter (07/19/2018 12:03 PM CDT)Only the most recent of32 resultswithin the time period is included. POC-Glucose Meter 132 (H)Comment: TESTED AT 70 - 110 mg/dL [facility] [address] [facility] [id number] Specimen Blood Performing Organization Address City/State/Zipcode Phone Number [address] [address] CENTER Basic Metabolic Panel (07/19/2018 5:03 AM CDT)Only the most recent of28 resultswithin the time period is included. Sodium 136 136 - 145 meq/L [facility] Potassium 3.4 (L) 3.5 - 5.1 meq/L [facility] Chloride 101 98 - 107 meq/L [facility] CO2 26 22 - 29 meq/L [facility] BUN 6 (L) 7 - 21 mg/dL [facility] Creatinine 0.64 0.57 - 1.25 mg/dL [facility] Glucose 80 70 - 105 mg/dL [facility] Calcium 8.5 8.4 - 10.2 mg/dL [facility] EGFR 148Comment: ESTIMATED GFR IS mL/min/1.73 sq m [facility] NOT ACCURATE CREATININE [facility] CENTER CLEARANCE IN PREDICTING GLOMERULAR FILTRATION RATE. ESTIMATED GFR IS NOT APPLICABLE FOR DIALYSIS PATIENTS. Specimen Blood Performing Organization Address City/[facility] Phone Number [address] [address] CENTER Potassium (07/17/2018 2:01 PM CDT) Potassium 3.7Comment: Specimen slightly 3.5 - 5.1 meq/L [facility] hemolyzed [facility] Specimen Blood Narrative Performed At Check Serum Potassium level [address] [facility] oral potassium replacement completed or 30 min after intravenous potassium replacement. Performing Organization Address City/[facility] Phone Number [address] [address] CENTER Calcium, Ionized (07/17/2018 6:00 AM CDT)Only the most recent of5 resultswithin the time period is included. Calcium, Ion 1.00 (L) 1.12 - 1.27 mmol/L [facility] pH, Blood 7.52 [facility] Specimen Blood Performing Organization Address City/[facility]/Zipcode Phone Number [address] [address] CENTER Phosphorus (07/17/2018 6:00 AM CDT)Only the most recent of4 resultswithin the time period is included. Phosphorus 3.5 2.3 - 4.7 mg/dL [facility] Specimen Blood Performing Organization Address [facility] Phone Number [address] [phone] CENTER Magnesium (07/17/2018 6:00 AM CDT)Only the most recent of23 resultswithin the time period is included. Magnesium 1.7 1.6 - 2.6 mg/dL [facility] Specimen Blood Performing Organization Address [facility] Phone Number [address] [address] [place] PT/aPTT (07/16/2018 4:16 AM CDT)Only the most recent of18 resultswithin the time period is included. Protime 17.0 (H) 11.9 - 14.[address] [facility] INR 1.5 <=[address].9 [facility] PTT 34.1 22.5 - 36.[address] [facility] Specimen Blood Narrative Performed At Effective 07/03/2018: PT Reference Range [facility] Change New: 11.9-14.2Previous: 11.7-14.7 RECOMMENDED COUMADIN/WARFARIN INR THERAPY RANGES STANDARD DOSE: 2.0-3.0Includes: PROPHYLAXIS for venous thrombosis, systemic embolization; TREATMENT for venous thrombosis and/or pulmonary embolus. HIGH RISK: Target INR is 2.5-3.5 for patients wiht mechanical heart valves. Performing Organization Address City/[facility] Phone Number [address] [id number] [phone] [place] CBC with platelet count + automated diff (07/16/2018 4:16 AM CDT)Only the most recent of24 resultswithin the time period is included. WBC 8.1 3.5 - 10.5 K/L [facility] RBC 3.62 (L) 4.63 - 6.08 M/L [facility] Hemoglobin 10.5 (L) 13.7 - 17.5 GM/DL [facility] Hematocrit 32.5 (L) 40.1 - 51.0 % [facility] MCV 89.8 79.0 - 92.[address] [facility] MCH 29.0 25.7 - 32.[address] [facility] MCHC 32.3 32.3 - 36.5 GM/DL [facility] RDW 13.7 11.6 - 14.4 % [facility] Platelets 339 150 - 450 K/CU MM [facility] MPV 10.7 9.4 - 12.[address] [facility] nRBC 0 0 - 0 /[address] [facility] % Neutros 69 % [facility] % Lymphs 23 % [facility] % Monos 7 % [facility] % Eos 0 % [facility] % Baso 0 % [facility] # Neutros 5.62 (H) 1.78 - 5.38 K/L [facility] # Lymphs 1.88 1.32 - 3.57 K/L [facility] # Monos 0.60 0.30 - 0.82 K/L [facility] # Eos 0.00 (L) 0.04 - 0.54 K/L [facility] # Baso 0.00 (L) 0.01 - 0.08 K/L [facility] Immature Granulocytes-Relative 1 0 - 1 % [facility] Specimen Blood Performing Organization Address [facility]/Zipcode Phone Number [facility] [address] [place], [place] [id number] [phone] [place] Prothrombin time/INR (07/16/2018 4:16 AM CDT)Only the most recent of18 resultswithin the time period is included. Protime 17.0 (H) 11.9 - 14.[address] [facility] INR 1.[address] <=[address]9 [facility] Specimen Blood Narrative Performed At Effective 07/03/2018: PT Reference Range [facility] Change New: 11.9-14.2Previous: 11.7-14.7 RECOMMENDED COUMADIN/WARFARIN INR THERAPY RANGES STANDARD DOSE: 2.0-3.0Includes: PROPHYLAXIS for venous thrombosis, systemic embolization; TREATMENT for venous thrombosis and/or pulmonary embolus. HIGH RISK: Target INR is 2.5-3.5 for patients wiht mechanical heart valves. Performing Organization Address [facility] Cent[facility]ode Phone Number [place] [phone] [place], [place] [id number] [phone] [place] XR chest 1 view portable / bedside (07/15/2018 10:25 AM CDT)Only the most recent of7 resultswithin the time period is included. Specimen Narrative Performed At FINAL REPORT [facility] EXAM: Chest one view COMPARISON: July 13, 2018 CLINICAL HISTORY: Shortness of breath FINDINGS: There is persistent cardiomegaly with mild to moderate left pleural effusion. There is no evidence of pneumothorax. The right internal jugular central venous catheter has been pulled back with its tip overlying the cavoatrial junction. The regional osseous structures are unremarkable. Signed: Lane Noel MD Report Verified Date/Time:07/15/2018 10:57:23 Reading Location: [facility] Radiology Reading Room Procedure Note Interface, External Ris In - 07/15/2018 10:59 AM CDT FINAL REPORT EXAM: Chest one view COMPARISON: July 13, 2018 CLINICAL HISTORY: Shortness of breath FINDINGS: There is persistent cardiomegaly with mild to moderate left pleural effusion. There is no evidence of pneumothorax. The right internal jugular central venous catheter has been pulled back with its tip overlying the cavoatrial junction. The regional osseous structures are unremarkable. Signed: Lane Noel MD Report Verified Date/Time: 07/15/2018 10:57:23 Reading Location: [facility] Radiology Reading Room Performing Organization Address [facility] Phone Number [facility] Clostridium difficile GDH Toxin (07/14/2018 8:52 PM CDT)Only the most recent of2 resultswithin the time period is included. C. Difficle Toxin Negative Negative [facility] C. Difficile GDH Antigen NegativeComment: No Negative [facility] indication of Clostridium [facility]ENTER difficile infection and no colonization. Discontinue enteric isolation and therapy. Specimen Stool Narrative Performed At Testing performed by [employer] [facility] Assay.For GDH, published sensitivity of the assay is 98.7% compared to cytotoxicity testing.For Toxin AB, published sensitivity is 87.8% and specificity 99.4% compared to cytotoxicity testing. Verification of kit performance was done by the [facility] Microbiology [facility] prior to clinical use. Performing Organization Address [facility] Centercofl Phone Number [address] [address] CENTER Triglycerides (07/14/2018 5:27 PM CDT) Triglycerides 125 mg/dL [facility] Specimen Blood Narrative Performed At TRIGLYCERIDE REFERENCE RANGE [facility] Low Risk<150 Borderline Risk 150-199 High [id number] Very High Risk >=500 Performing Organization Address [facility] Centercode Phone Number [address] [address] [place] Hepatic function panel (07/14/2018 8:32 AM CDT)Only the most recent of22 resultswithin the time period is included. Protein, Total 5.1 (L) 6.0 - 8.3 gm/dL [facility] Albumin 2.3 (L) 3.5 - 5.0 g/dL [facility] Total Bilirubin 0.3 0.2 - 1.2 mg/dL [facility] Bilirubin, Direct 0.3 0.1 - 0.5 mg/dL [facility] Alkaline Phosphatase 57 40 - 150 U/L [facility] AST 11 5 - 34 U/L [facility] ALT <6 (L) 6 - 55 U/L [facility] Specimen Blood Performing Organization Address City/State/Zipcode Phone Number [facility] [address] [place] [address] [phone] CENTER REPORT OF PROCEDURE - ENDOSCOPY URL (07/13/2018 4:00 PM CDT) Narrative Performed At CT abdomen/pelvis without iv contrast (07/13/2018 4:56 AM CDT) Specimen Narrative Performed At FINAL REPORT [facility] CT scan of the abdomen and pelvis. MEDICAL HISTORY: Peripancreatic fluid collection, status post gastrocystostomy. Worsening abdominal pain. COMPARISON STUDY: CT scan dated June 05, 2018. TECHNIQUE: Contiguous helical slices were acquired through the abdomen and pelvis without the administration of oral or intravenous contrast. This exam was performed according to our department dose optimization program which includes automated exposure control, adjustment of the mA and/or kV according to the patient's size and/or use of iterative reconstruction technique. FINDINGS: A trace right-sided and small left-sided pleural effusion is seen with extensive atelectasis or consolidation in the left lung base, similar to previous. The abdomen and pelvis are limited by lack of contrast. The liver is fatty in attenuation with no focal masses. The spleen is enlarged measuring 13.2 cm in AP diameter. Some peripancreatic fluid is seen tracking along the left anterior pararenal space but this has significantly decreased in size from previous now measuring only 3.1 x 2.4 cm the maximal transverse diameter and previously measuring 6.6 x 5.3 cm. A pigtail catheter has been inserted into a previously noted fluid collection adjacent to the stomach. A cystogastrostomy has also been inserted with no residual significant fluid seen. There is a stent in the CBD with no biliary dilatation. The gallbladder is elongated in appearance, also similar to previous. Both adrenal glands and kidneys are unremarkable. There are multiple featureless fluid-filled loops of small bowel measuring up to 3.1 cm. Trace free fluid is seen. No free air is noted. The aorta is normal in caliber. There is no suspicious adenopathy. Bone windows demonstrate no focal abnormal on the. IMPRESSION: 1. Trace right-sided and small left-sided pleural effusion with adjacent atelectasis or consolidation, particularly in the left lower lobe which appears atelectatic. This is similar to previous. 2. Fatty liver. 3. Interval insertion of cystogastrostomy. Residual pigtail catheter in place with no residual fluid adjacent to the stomach or in the lesser sac. A small amount of fluid is seen adjacent to the pancreatic tail tracking along the left anterior pararenal space, decreased from previous. 4. Stent in the CBD. 5. Splenomegaly. 6. Minimal free fluid. 7. Mildly dilated, featureless fluid-filled small bowel loops which could be related to an enteritis. Signed: Michael Briones MD Report Verified Date/Time:07/13/2018 09:34:48 Reading Location: [address] Consult Reading Room Procedure Note Interface, External Ris In - 07/13/2018 9:37 AM CDT FINAL REPORT CT scan of the abdomen and pelvis. MEDICAL HISTORY: Peripancreatic fluid collection, status post gastrocystostomy. Worsening abdominal pain. COMPARISON STUDY: CT scan dated June 05, 2018. TECHNIQUE: Contiguous helical slices were acquired through the abdomen and pelvis without the administration of oral or intravenous contrast. This exam was performed according to our department dose optimization program which includes automated exposure control, adjustment of the mA and/or kV according to the patient's size and/or use of iterative reconstruction technique. FINDINGS: A trace right-sided and small left-sided pleural effusion is seen with extensive atelectasis or consolidation in the left lung base, similar to previous. The abdomen and pelvis are limited by lack of contrast. The liver is fatty in attenuation with no focal masses. The spleen is enlarged measuring 13.2 cm in AP diameter. Some peripancreatic fluid is seen tracking along the left anterior pararenal space but this has significantly decreased in size from previous now measuring only 3.1 x 2.4 cm the maximal transverse diameter and previously measuring 6.6 x 5.3 cm. A pigtail catheter has been inserted into a previously noted fluid collection adjacent to the stomach. A cystogastrostomy has also been inserted with no residual significant fluid seen. There is a stent in the CBD with no biliary dilatation. The gallbladder is elongated in appearance, also similar to previous. Both adrenal glands and kidneys are unremarkable. There are multiple featureless fluid-filled loops of small bowel measuring up to 3.1 cm. Trace free fluid is seen. No free air is noted. The aorta is normal in caliber. There is no suspicious adenopathy. Bone windows demonstrate no focal abnormal on the. IMPRESSION: 1. Trace right-sided and small left-sided pleural effusion with adjacent atelectasis or consolidation, particularly in the left lower lobe which appears atelectatic. This is similar to previous. 2. Fatty liver. 3. Interval insertion of cystogastrostomy. Residual pigtail catheter in place with no residual fluid adjacent to the stomach or in the lesser sac. A small amount of fluid is seen adjacent to the pancreatic tail tracking along the left anterior pararenal space, decreased from previous. 4. Stent in the CBD. 5. Splenomegaly. 6. Minimal free fluid. 7. Mildly dilated, featureless fluid-filled small bowel loops which could be related to an enteritis. Signed: Michael Briones MD Report Verified Date/Time: 07/13/2018 09:34:48 Reading Location: [facility] B[id number] [facility] Consult Reading Room Performing Organization Address City/State/Zipcode Phone Number GE R[facility] Lactic acid, venous (07/12/2018 4:32 PM CDT)Only the most recent of3 resultswithin the time period is included. Lactate, Venous 0.7 0.5 - 2.2 mmol/L [facility] Specimen Blood Performing Organization Address [facility] Centercode Phone Number [address] [phone] [place] REPORT OF PROCEDURE - ENDOSCOPY URL (07/12/2018 12:46 PM CDT) Narrative Performed At POC-Lactic Acid, Venous (07/12/2018 2:03 AM CDT) POC-Lactic Acid, Venous 1.5Comment: TESTED AT 0.9 - 1.7 mmol/L [address] [address] Specimen Blood Performing Organization Address [facility] Centercofl Phone Number [address] [phone] [place] POCT-HEMATOCRIT (07/12/2018 1:58 AM CDT) POC-Hematocrit 37 (L)Comment: TESTED AT 40 - 50 % [address] [address] Specimen Blood Performing Organization Address [facility] Phone Number [address] [address] [phone] [place] POCT-HEMOGLOBIN (07/12/2018 1:58 AM CDT) POC-Hemoglobin 12.6 (L)Comment: TESTED AT 13.0 - 16.8 g/dL [address] [address] AT [address] [address] Specimen Blood Performing Organization Address City/[facility] Centercode Phone Number [address] [phone] [place] POCT-GLUCOSE (07/12/2018 1:58 AM CDT) POC-Glucose 106Comment: TESTED AT [facility] 70 - 110 mg/dL [address] [address] Specimen Blood Performing Organization Address City/[facility]/Zipcode Phone Number [address] [address] [phone] [place] POC-Sodium (07/12/2018 1:58 AM CDT) POC-Sodium 139Comment: TESTED AT [facility] 135 - 148 meq/L [address] [address] Specimen Blood Performing Organization Address [facility] Phone Number [address] [address] [place] POC-Potassium (07/12/2018 1:58 AM CDT) POC-Potassium 3.7Comment: TESTED AT [facility] 3.6 - 5.5 meq/L [address] [address] Specimen Blood Performing Organization Address [facility] Phone Number [address] [address] [place] POC-Calcium ionized (07/12/2018 1:58 AM CDT) POC-Calcium Ionized 1.15Comment: TESTED AT 1.12 - 1.27 mmol/L [address] [address] Specimen Blood Performing Organization Address [facility] Phone Number [address] [address] [place] POC-Blood gases, venous (07/12/2018 1:58 AM CDT) Temp. Celsius-POC 38.4 [facility] FIO2-POC 21Comment: TESTED AT [address] [address] pH, Venous-POC 7.362 7.320 - 7.420 [facility] PCO2, Venous-POC 50.1 41.0 - 51.[address] [facility] PO2, Venous-POC 21.0 (L) 25.0 - 40.[address] [facility] SO2, Venous-POC 29.0 (L) 40.0 - 70.0 % [facility] HCO3, Venous-POC 28.0 21.0 - 29.0 meq/L [facility] BE, Venous-POC 3.0 -2.0 - 3.0 meq/L [facility] Specimen Blood Performing Organization Address City/State/Zipcode Phone Number [facility] [address] [place] [address] [phone] CENTER XR abdomen / KUB 1 view (07/12/2018 1:45 AM CDT) Specimen Narrative Performed At FINAL REPORT GE RIS CLINICAL HISTORY: UPRIGHT assess for perf; abdomoinal pain s/p proceduretoday TECHNIQUE: RAD, ABDOMEN/KUB, 1 VIEW AP COMPARISON: None FINDINGS: Pigtail drainage catheter and gastrocystostomy metal stent overlie left upper quadrant. Plastic biliary stent in the right upper quadrant. Paucity of bowel gas limits evaluation for obstruction or intra-abdominal pathology. No free intraperitoneal air is identified. Left basilar airspace opacity may represent atelectasis however superimposed infection is difficult to exclude the proper clinical setting. Small left pleural effusion. Signed: Katie Darden MD Report Verified Date/Time:07/12/2018 02:12:57 Procedure Note Interface, External Ris In - 07/12/2018 2:15 AM CDT FINAL REPORT CLINICAL HISTORY: UPRIGHT assess for perf; abdomoinal pain s/p proceduretoday TECHNIQUE: RAD, ABDOMEN/KUB, 1 VIEW AP COMPARISON: None FINDINGS: Pigtail drainage catheter and gastrocystostomy metal stent overlie left upper quadrant. Plastic biliary stent in the right upper quadrant. Paucity of bowel gas limits evaluation for obstruction or intra-abdominal pathology. No free intraperitoneal air is identified. Left basilar airspace opacity may represent atelectasis however superimposed infection is difficult to exclude the proper clinical setting. Small left pleural effusion. Signed: Katie Darden MD Report Verified Date/Time: 07/12/2018 02:12:57 Performing Organization Address [facility] Phone Number NVELO RIS ECG 12 lead (07/12/2018 1:32 AM CDT) Specimen Narrative Performed At Ventricular Rate 124 BPM GE MUSE Atrial Rate 124 BPM P-R Interval 156 ms QRS Duration 78 ms Q-T Interval 318 ms QTC Calculation(Bazett) 456 ms P [place] 30 degrees R [place] 24 degrees T [place] 30 degrees Sinus tachycardia Otherwise normal ECG No previous ECGs available Confirmed by MD HARVINDER, IHAB ([id number]) on 07/12/2018 7:47:47 AM Procedure Note Interface, External Ris In - 07/12/2018 7:47 AM CDT Ventricular Rate 124 BPM Atrial Rate 124 BPM P-R Interval 156 ms QRS Duration 78 ms Q-T Interval 318 ms QTC Calculation(Bazett) 456 ms P [place] 30 degrees R [place] 24 degrees T [place] 30 degrees Sinus tachycardia Otherwise normal ECG No previous ECGs available Confirmed by MD HARVINDER, IHAB ([id number]) on 07/12/2018 7:47:47 AM Performing Organization Address [facility] Phone Number NVELO MUSE Blood Culture - Routine (Right Venipuncture) (07/12/2018 1:05 AM CDT)Only the most recent of8 resultswithin the time period is included. Result No growth in [address] [facility] Specimen Blood Performing Organization Address [facility] Phone Number [address] [address] [phone] CENTER Vancomycin level, trough (07/11/2018 1:52 PM CDT)Only the most recent of3 resultswithin the time period is included. Vancomycin Tr 7.1 (L) 10.0 - 20.0 ug/mL [facility] Specimen Blood Narrative Performed At If vancomycin trough level > 20 mcg/mL, hold [facility] next vancomycin dose, and contact MD and pharmacist. Performing Organization Address [facility] Phone Number [address] [address] CENTER aPTT (07/10/2018 10:45 AM CDT) PTT 47.0 (H) 22.5 - 36.[address] [facility] Specimen Blood Performing Organization Address City/[facility]/Zipcode Phone Number [address] [address] [phone] CENTER Wound culture + gram stain (07/10/2018 1:22 AM CDT) Result 4+ Staphylococcus aureus (A) [facility] Gram Stain Result 4+ White blood cells seen [facility] Gram Stain Result 1+ gram positive cocci in pairs [facility] Specimen Wound Narrative Performed At 4+ Skin matty [facility] Organism Antibiotic Method Susceptibility Staphylococcus aureus Clindamycin 0.25: Susceptible Staphylococcus aureus Erythromycin <=0.25: Susceptible Staphylococcus aureus Linezolid 2: Susceptible Staphylococcus aureus Oxacillin <=0.25: Susceptible Staphylococcus aureus Rifampin <=0.5: Susceptible Staphylococcus aureus Tetracycline <=1: Susceptible Staphylococcus aureus Trimethoprim + Sulfamethoxazole <=10: Susceptible Staphylococcus aureus Vancomycin 1: Susceptible Performing Organization Address [facility] Phone Number [address] [address] [phone] [place] Beta-2 glycoprotein antibodies (06/14/2018 4:34 PM CDT) B2 Glcoprotein Ab Profile Refer to individual [facility] B2-Glycoprotein IgG, IgM INCORPORATED and IgA results. Specimen Blood Narrative Performed At Performing Organization Address City/State/Zipcode Phone Number [facility] [place] [address] INC[facility]POR[facility] [address] [facility] Hexagonal Phospholipid (06/13/2018 12:20 PM CDT) Hexagonal Phospholipid Positive [facility] Specimen Blood Performing Organization Address City/State/Zipcode Phone Number [place] [phone] [place] [address] [place] Lupus Anticoagulant Screen with Reflex To Confirmatory (06/13/2018 12:20 PM CDT) DRVV Screen Ratio 1.39 (H) <1.20 [facility] DRVV Confirm Ratio 1.21 [facility] Interpretations Positive screen for Lupus [facility] Anticoagulant with [facility] hexagonal phospholipid confirmation. Suggest repeat testing in 12 weeks and when patient not receiving anticoagulant therapy. Protime 19.6 (H) 11.7 - 14.[address] [facility] INR 1.7 <=5.9 [facility] PTT 57.5 (H) 22.5 - 36.[address] [facility] PTT-LA 61.5 (H) 32.0 - 41.8 [facility] Pathologist: Christy Smith MD [facility] (electronic signature) [facility] Specimen Blood Performing Organization Address City/[facility]/Zipcode Phone Number [address] [address] [phone] [place] 1:1 MIXING STUDY, NON-INCUBATED (06/13/2018 12:20 PM CDT) Protime 19.6 (H) 11.7 - 14.[address] [facility] PTT 57.5 (H) 22.5 - 36.[address] [facility] PT 02/05 Mix 14.4 11.7 - 14.[address] [facility] PTT 02/05 Mix 41.9 (H) 22.5 - 36.[address] [facility] Specimen Blood Performing Organization Address City/State/Zipcode Phone Number [address] [address] [place] Cardiolipin Antibodies, IgG and IgM (06/13/2018 12:20 PM CDT) Anticardiolipin IgG <1.6 <[address] [facility] Anticardiolipin IgM 0.[address] <[address] [facility] Specimen Blood Narrative Performed At Anticardiolipin IgG Result Interpretation: [facility] <20.0 GPL Normal >/=20.0 GPL Positive Anticardiolipin IgM Result Interpretation: <20.0 MPL Normal >/=20.0 MPL Positive Performing Organization Address City/[facility]erc[facility] Phone Number [address] [address] CENTER Thrombin time (06/13/2018 12:20 PM CDT) Thrombin Time 17.2 13.8 - 20.[address] [facility] Specimen Blood Performing Organization Address [facility] Phone Number [address] [address] [phone] [place] Fibrinogen (06/13/2018 12:20 PM CDT)Only the most recent of2 resultswithin the time period is included. Fibrinogen 762 (H) 225 - 434 mg/dl [facility] Specimen Blood Performing Organization Address [facility] Phone Number [address] [address] [place] B-type Natriuretic Factor (BNP) (06/11/2018 2:51 PM CDT) BNP <10 0 - 100 pg/mL [facility] Specimen Blood Performing Organization Address [facility]ofl Phone Number [address] [address] [place] REPORT OF PROCEDURE - ENDOSCOPY URL (06/07/2018 3:15 PM CDT) Narrative Performed At Urinalysis w/Microscopic + Reflex to Culture (06/07/2018 1:47 PM CDT)Only the most recent of2 resultswithin the time period is included. Color, UA Yellow [facility] Clarity, UA Clear [facility] Specific [place], UA 1.012 1.001 - 1.035 [facility] pH, UA 6.5 5.0 - 8.0 [facility] Protein, UA 20 mg/dL (A) Negative [facility] Glucose, UA Negative Negative [facility] Ketones, UA 40 mg/dL (A) Negative [facility] Bilirubin, UA Negative Negative [facility] Blood, UA Trace (A) Negative [facility] Nitrite, UA Negative Negative [facility] Leukocytes, UA Negative Negative [facility] Urobilinogen, UA 0.2 0.2 - 1.0 mg/dL [facility] RBC, UA 2 /HPF [facility] WBC, UA 3 /HPF [facility] Mucus Rare [facility] Specimen Source [facility] Specimen Urine Performing Organization Address City/[facility]/Zipcode Phone Number [facility] [address] [place] [address] [place] Body fluid culture + gram stain (06/07/2018 1:42 PM CDT) Result No growth [facility] Gram Stain Result <1+ White blood cells seen [facility] Gram Stain Result No organisms seen [facility] Specimen Body Fluid Performing Organization Address City/[facility]/Zipcode Phone Number [facility] [address] [place] [address] CENTER Incubated 1:1 Mixing Study (06/07/2018 11:47 AM CDT) Immediate PT 22.5 (H) 11.7 - 14.7 [facility] Immediate PTT 54.8 (H) 22.5 - 36.0 [facility] Immediate 1:1 Mix PT 14.1 11.7 - 14.7 [facility] Immediate 1:1 Mix PTT 40.9 (H) 22.5 - 36.0 [facility] 1:1 MIX, 1 HOUR INC PT 14.[address] [facility] 1:1 MIX, 1 HOUR INC PTT 43.[address] 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 Request for percutaneous image guided drainage catheter placement. COMPARISON: June 05, 2018 TECHNIQUE: CT-guided placement of 10 [place] drainage catheter in left upper quadrant peripancreatic [...] and the introducer needle removed. An 8 [place] and then 10 [place] dilator were used. Then, a 10 [place] multisidehole drainage catheter was placed over the [...] 45 minutes. IMPRESSION: CT-guided placement of 10 [place] drainage catheter in left upper quadrant peripancreatic collection. Thin dark fluid was encountered. Signed: Leo Felton MD Report Verified Date/Time:06/06/2018 18:06:54 Reading Location: [facility] B1 C013Y CT Body Reading Room Procedure Note Interface, External Ris In - 06/06/2018 6:09 PM CDT FINAL REPORT INDICATION: 28-year-old male with acute pancreatitis and acute necrotic collection. Request for percutaneous image guided drainage catheter placement. COMPARISON: June 05, 2018 TECHNIQUE: CT-guided placement of 10 [place] drainage catheter in left upper quadrant peripancreatic [...] and the introducer needle removed. An 8 [place] and then 10 [place] dilator were used. Then, a 10 [place] multisidehole drainage catheter was placed over the [...] 45 minutes. IMPRESSION: CT-guided placement of 10 [place] drainage catheter in left upper quadrant peripancreatic collection. Thin dark fluid was encountered. Signed: Leo Felton MD Report Verified Date/Time: 06/06/2018 18:06:54 Reading Location: [facility] C013Y CT Body Reading Room Performing Organization Address City/State/Zipcode Phone Number [email or web address] CT abdomen/pelvis with IV contrast (06/05/2018 11:18 AM CDT) Specimen Narrative Performed At FINAL REPORT [email or web address] CT abdomen and pelvis with contrast History: [...] MD Report Verified Date/Time:06/05/2018 12:46:00 Reading Location: [facility] Diagnostic Imaging Reading Room - [place] [id number] Procedure Note Interface, External Ris In - [...] Report Verified Date/Time: 06/05/2018 12:46:00 Reading Location: [facility] Diagnostic Imaging Reading Room - [place] [address] 112 Performing Organization Address City/State/Zipcode Phone Number GE RIS Manual Differential (06/05/2018 3:14 AM CDT)Only the most recent of4 resultswithin the time period is included. % Neutros 75 % [facility] % Lymphs 11 % [facility] % Monos 9 % [facility] % Eos 5 % [facility] # Neutros 18.08 (H) 1.78 - 5.38 K/ul [facility] # Lymphs 2.65 1.32 - 3.57 K/ul [facility] # Monos 2.17 (H) 0.30 - 0.82 K/uL [facility] # Eos 1.21 (H) 0.04 - 0.54 K/uL [facility] Total Counted 100 [facility] RBC Morphology Normal [facility] WBC Morphology Normal [facility] Platelet Morphology Normal [facility] Artifact Present [facility] Platelet Conc Adequate [facility] Specimen Blood Narrative Performed At Received comment: [facility] User comments: Slide comments: Performing Organization Address City/State/Zipcode Phone Number [facility] [address] [place] [address] CENTER Procalcitonin (06/04/2018 1:42 PM CDT) Procalcitonin 0.62 (H) <0.05 ng/mL [facility] Specimen Blood Narrative Performed At SEPSIS RISK (ng/mL) [facility] Low:0.05-0.50 Intermediate: 0.51-2.00 High: >=2.01 Performing Organization Address City/State/Zipcode Phone Number [place] [phone] [place] [address] [place] US abdomen limited (06/01/2018 1:36 PM CDT) Specimen Narrative Performed At FINAL REPORT [email or web address] ULTRASOUND RIGHT UPPER QUADRANT OF THE ABDOMEN [...] MD Report Verified Date/Time:06/01/2018 14:19:45 Reading Location: [address] Reading Room Procedure Note Interface, External Ris [...] Report Verified Date/Time: 06/01/2018 14:19:45 Reading Location: [address] Reading Room Performing Organization Address City/[facility] Centerc[facility] Phone Number GE RIS FL ERCP (05/31/2018 2:22 PM CDT) Specimen Narrative Performed At PROCEDURE PERFORMED IN O.R. - PLEASE REFER TO THE INTRAOPERATIVE GE RIS REPORT. Procedure Note Interface, External Ris In - 06/06/2018 6:30 PM CDT PROCEDURE PERFORMED IN O.R. - PLEASE REFER TO THE INTRAOPERATIVE REPORT. Performing Organization Address [facility] Phone Number GE RIS Troponin I (05/30/2018 8:44 PM CDT) Troponin I <0.01 0.00 - 0.03 ng/mL [facility] Specimen Blood Narrative Performed At Troponin I (TnI) levels must be interpreted [facility] in the context of the presenting symptoms [...] disease, and persistent tachyarrhythmia. Performing Organization Address City/[facility] Centercode Phone Number [address] [address] CENTER Lipase (05/30/2018 8:44 PM CDT) Lipase 227 (H) 8 - 78 U/L [facility] Specimen Blood Narrative Performed At Specimen moderately icteric [facility] Performing Organization Address City/[facility] Centercode Phone Number [address] [address] [phone] CENTER Gamma Glutamyl Transferase (GGT) (05/30/2018 8:44 PM CDT) GGT 55 9 - 64 U/L [facility] Specimen Blood Narrative Performed At Specimen moderately icteric [facility] Performing Organization Address [facility] Centercode Phone Number [address] [address] CENTER Lipid panel (05/30/2018 8:44 PM CDT) Triglycerides 102 mg/dL [facility] Cholesterol 101 mg/dL [facility] HDL 17 mg/dL [facility] LDL Calculated 64 mg/dL [facility] Specimen Blood Narrative Performed At Triglyceride Reference Range: [facility] Low Risk <150 [id number] High Risk 200-499 Very High Risk>=500 Cholesterol Reference Range: Low Risk <200 [id number] High Risk>240 HDL Cholesterol Reference Range: Low Risk >=60 High Risk <40 LDL Cholesterol Reference Range: Optimal<100 Near [id number] Very High >=190 Specimen moderately icteric Performing Organization Address City/State/Zipcode Phone Number [facility]ITALAdmittedlyFORMERLY [facility] [address] [place], [place] [phone] CENTER after 07/25/2017 Insurance Payer Benefit Plan / Group Subscriber ID Type Phone Address MEDICAID - MEDICAID MEDICAID [employer] xxxxxxxxx Medicaid MGD CARE Non-Contracted Advance Directives For more information, please contact:[facility] HospitalAdmittedlyOthello Community HospitalDruxkm[address] [place], [place] [phone] Code Status Date Activated Date Inactivated Comments Full Code 07/09/2018 10:30 PM 07/19/2018 3:01 PM This code status was determined by: Patient Full Code 05/30/2018 8:02 PM 06/16/2018 12:50 PM This code status was determined by: Patient
--- OUTSIDE RECORDS SUMMARY | 2018-07-26 04:55 | XMS REPORT ---
:1990 Author Organization [facility] Address [address] [place] [address] [address] [place] [address] Care Team Providers Name Role Phone SATHISH, DALE Unavailable Unavailable JETT CELAYA Unavailable Unavailable Problems This patient has no known problems. Allergies, Adverse Reactions, Alerts This patient has no known allergies or adverse reactions. Medications This patient has no known medications. Results Test Description Test Time Test Comments Text Results Atomic Results Result Comments POCT-GLUCOSE METER 2018-07-19 12:06:00 Test Item Value Reference Range Comments POC-GLUCOSE METER (BEAKER) (test 132 mg/dL 70-110 TESTED AT [address] gnzz=8153) [place] [id number] POCT-GLUCOSE [id number] 08:57:00 Test Item Value Reference Range Comments POC-GLUCOSE METER (BEAKER) 80 mg/dL 70-110 TESTED AT [address] (test rbre=0081) [facility] [address] BASIC METABOLIC [id number] 06:35:00 Test Item Value Reference Range Comments SODIUM (BEAKER) (test 136 meq/L 136-145 yfxo=975) POTASSIUM (BEAKER) (test 3.4 meq/L 3.5-5.1 jeby=853) CHLORIDE (BEAKER) (test 101 meq/L 98-107 adbu=863) CO2 (BEAKER) (test 26 meq/L 22-29 hddv=894) BLOOD UREA NITROGEN 6 mg/dL 7-21 (BEAKER) (test xnrd=412) CREATININE (BEAKER) (test 0.64 mg/dL 0.57-1.25 shkc=546) GLUCOSE RANDOM (BEAKER) 80 mg/dL 70-105 (test bbbz=176) CALCIUM (BEAKER) (test 8.5 mg/dL 8.4-10.2 zmvj=614) EGFR (BEAKER) (test 148 mL/min/1.73 sq m ESTIMATED GFR IS NOT adyg=2774) ACCURATE CREATININE CLEARANCE IN PREDICTING GLOMERULAR FILTRATION RATE. ESTIMATED GFR IS NOT APPLICABLE FOR DIALYSIS PATIENTS. POCT-GLUCOSE [id number] 22:36:00 Test Item Value Reference Range Comments POC-GLUCOSE METER (BEAKER) 72 mg/dL 70-110 TESTED AT [address] (test tryi=2455) [place] [address] POCT-GLUCOSE [id number] 12:21:00 Test Item Value Reference Range Comments POC-GLUCOSE METER (BEAKER) 82 mg/dL 70-110 TESTED AT [address] (test otxw=4905) [place] [address] BASIC METABOLIC [id number] 09:30:00 Test Item Value Reference Range Comments SODIUM (BEAKER) (test 137 meq/L 136-145 qgcd=412) POTASSIUM (BEAKER) (test 3.8 meq/L 3.5-5.1 mglw=546) CHLORIDE (BEAKER) (test 103 meq/L 98-107 qeet=213) CO2 (BEAKER) (test 28 meq/L 22-29 alth=028) BLOOD UREA NITROGEN 7 mg/dL 7-21 (BEAKER) (test xuai=896) CREATININE (BEAKER) (test 0.61 mg/dL 0.57-1.25 xkpt=828) GLUCOSE RANDOM (BEAKER) 90 mg/dL 70-105 (test oeki=503) CALCIUM (BEAKER) (test 8.2 mg/dL 8.4-10.2 dltz=035) EGFR (BEAKER) (test 156 mL/min/1.73 sq m ESTIMATED GFR IS NOT gvei=3699) ACCURATE CREATININE CLEARANCE IN PREDICTING GLOMERULAR FILTRATION RATE. ESTIMATED GFR IS NOT APPLICABLE FOR DIALYSIS PATIENTS. POCT-GLUCOSE [id number] 08:42:00 Test Item Value Reference Range Comments POC-GLUCOSE METER (BEAKER) 85 mg/dL 70-110 TESTED AT [address] (test qptq=0166) [place] [id number] POCT-GLUCOSE [id number] 21:33:00 Test Item Value Reference Range Comments POC-GLUCOSE METER (BEAKER) 106 mg/dL 70-110 TESTED AT [address] (test qgzw=5531) [place] [address] POCT-GLUCOSE [id number] 17:42:00 Test Item Value Reference Range Comments POC-GLUCOSE METER (BEAKER) 95 mg/dL 70-110 TESTED AT [address] (test azae=8307) [facility] [address] [id number] 14:42:00 Test Item Value Reference Range Comments POTASSIUM (BEAKER) (test 3.7 meq/L 3.5-5.1 Specimen slightly hemolyzed zsdq=338) Check Serum Potassium level 2 hours after oral potassium replacement completed or 30 min after intravenous potassium replacement.POCT-GLUCOSE [id number] 11:45:00 Test Item Value Reference Range Comments POC-GLUCOSE METER (BEAKER) 151 mg/dL 70-110 TESTED AT [address] (test hzzb=2707) [facility] [address] POCT-GLUCOSE [id number] 09:45:00 Test Item Value Reference Range Comments POC-GLUCOSE METER (BEAKER) 127 mg/dL 70-110 TESTED AT [address] (test rapo=6484) [place] [address] BLOOD [id number] 08:00:00 Test Item Value Reference Range Comments CULTURE (BEAKER) (test eraa=9248) No growth in 5 days BLOOD [id number] 08:00:00 Test Item Value Reference Range Comments CULTURE (BEAKER) (test tarr=0166) No growth in 5 days BASIC METABOLIC [id number] 06:48:00 Test Item Value Reference Range Comments SODIUM (BEAKER) (test 139 meq/L 136-145 hhad=916) POTASSIUM (BEAKER) (test 3.2 meq/L 3.5-5.1 eszp=373) CHLORIDE (BEAKER) (test 104 meq/L 98-107 jhhy=126) CO2 (BEAKER) (test 28 meq/L 22-29 vdjr=775) BLOOD UREA NITROGEN 7 mg/dL 7-21 (BEAKER) (test fbds=201) CREATININE (BEAKER) (test 0.61 mg/dL 0.57-1.25 atzr=903) GLUCOSE RANDOM (BEAKER) 88 mg/dL 70-105 (test dent=882) CALCIUM (BEAKER) (test 7.9 mg/dL 8.4-10.2 oiqq=105) EGFR (BEAKER) (test 156 mL/min/1.73 sq m ESTIMATED GFR IS NOT ruqj=7354) ACCURATE CREATININE CLEARANCE IN PREDICTING GLOMERULAR FILTRATION RATE. ESTIMATED GFR IS NOT APPLICABLE FOR DIALYSIS PATIENTS. [id number] 06:46:00 Test Item Value Reference Range Comments PHOSPHORUS (BEAKER) (test vsxu=181) 3.5 mg/dL 2.3-4.7 [id number] 06:46:00 Test Item Value Reference Range Comments MAGNESIUM (BEAKER) (test pfzw=414) 1.7 mg/dL 1.6-2.6 CALCIUM, [id number] 06:45:00 Test Item Value Reference Range Comments CALCIUM IONIZED (BEAKER) (test shcg=712) 1.00 mmol/L 1.12-1.27 PH, BLOOD (BEAKER) (test lahg=4846) 7.52 POCT-GLUCOSE [id number] 21:56:00 Test Item Value Reference Range Comments POC-GLUCOSE METER (BEAKER) 112 mg/dL 70-110 TESTED AT [address] (test tjct=2391) [place] [id number] POCT-GLUCOSE [id number] 17:46:00 Test Item Value Reference Range Comments POC-GLUCOSE METER (BEAKER) 86 mg/dL 70-110 TESTED AT [address] (test lazx=5404) [place] [id number] POCT-GLUCOSE [id number] 11:20:00 Test Item Value Reference Range Comments POC-GLUCOSE METER (BEAKER) 164 mg/dL 70-110 TESTED AT [address] (test ruqg=8817) [place] [address] POCT-GLUCOSE [id number] 08:57:00 Test Item Value Reference Range Comments POC-GLUCOSE METER (BEAKER) 88 mg/dL 70-110 TESTED AT [address] (test emjv=7358) [place] [address] CALCIUM, [id number] 05:14:00 Test Item Value Reference Range Comments CALCIUM IONIZED (BEAKER) (test rhzr=651) 1.12 mmol/L 1.12-1.27 PH, BLOOD (BEAKER) (test boaz=9763) 7.43 BASIC METABOLIC [id number] 04:59:00 Test Item Value Reference Range Comments SODIUM (BEAKER) (test 140 meq/L 136-145 mdjc=490) POTASSIUM (BEAKER) (test 3.3 meq/L 3.5-5.1 ktfx=468) CHLORIDE (BEAKER) (test 107 meq/L 98-107 zuki=136) CO2 (BEAKER) (test 28 meq/L 22-29 fsxv=572) BLOOD UREA NITROGEN 10 mg/dL 7-21 (BEAKER) (test onta=863) CREATININE (BEAKER) (test 0.64 mg/dL 0.57-1.25 rdwx=558) GLUCOSE RANDOM (BEAKER) 99 mg/dL 70-105 (test phum=503) CALCIUM (BEAKER) (test 7.5 mg/dL 8.4-10.2 cwsl=645) EGFR (BEAKER) (test 148 mL/min/1.73 sq m ESTIMATED GFR IS NOT bpet=1420) ACCURATE CREATININE CLEARANCE IN PREDICTING GLOMERULAR FILTRATION RATE. ESTIMATED GFR IS NOT APPLICABLE FOR DIALYSIS PATIENTS. [id number] 04:57:00 Test Item Value Reference Range Comments MAGNESIUM (BEAKER) (test pmby=776) 1.8 mg/dL 1.6-2.6 [id number] 04:56:00 Test Item Value Reference Range Comments PHOSPHORUS (BEAKER) (test ulvw=530) 3.4 mg/dL 2.3-4.7 [id number] 04:54:00 Test Item Value Reference Range Comments PROTIME (BEAKER) (test tbdq=142) 17.0 seconds 11.9-14.2 INR (BEAKER) (test dziz=144) 1.5 <=5.9 PARTIAL THROMBOPLASTIN TIME (BEAKER) (test 34.1 seconds 22.5-36.0 gdvr=756) Effective 07/03/2018: PT Reference Range ChangeNew: 11.9-14.2 Previous: 11.7- 14.7RECOMMENDED COUMADIN/WARFARIN INR THERAPY RANGESSTANDARD DOSE: 2.0-3.0 Includes: PROPHYLAXIS for venous thrombosis, systemic embolization; TREATMENT for venous thrombosis and/or pulmonary embolus.HIGH RISK: Target INR is2.5-3.5 for patients wiht mechanical heart valves.PROTHROMBIN [id number] 04:52: 00 Test Item Value Reference Range Comments PROTIME (BEAKER) (test zxor=077) 17.0 seconds 11.9-14.2 INR (BEAKER) (test ucba=623) 1.5 <=5.9 Effective 07/03/2018: PT Reference Range ChangeNew: 11.9-14.2 Previous: 11.7- 14.7RECOMMENDED COUMADIN/WARFARIN INR THERAPY RANGESSTANDARD DOSE: 2.0-3.0 Includes: PROPHYLAXIS for venous thrombosis, systemic embolization; TREATMENT for venous thrombosis and/or pulmonary embolus.HIGH RISK: Target INR is2.5-3.5 for patients wiht mechanical heart valves.CBC W/PLT COUNT & AUTO [id number] 04:47:00 Test Item Value Reference Range Comments WHITE BLOOD CELL COUNT (BEAKER) (test svjc=271) 8.1 K/ L 3.5-10.5 RED BLOOD CELL COUNT (BEAKER) (test nnwx=506) 3.62 M/ L 4.63-6.08 HEMOGLOBIN (BEAKER) (test kadm=806) 10.5 GM/DL 13.7-17.5 HEMATOCRIT (BEAKER) (test cwbf=855) 32.5 % 40.1-51.0 MEAN CORPUSCULAR VOLUME (BEAKER) (test iyza=376) 89.8 fL 79.0-92.2 MEAN CORPUSCULAR HEMOGLOBIN (BEAKER) (test 29.0 pg 25.7-32.2 rdon=006) MEAN CORPUSCULAR HEMOGLOBIN CONC (BEAKER) (test 32.3 GM/DL 32.3-36.5 nxmc=215) RED CELL DISTRIBUTION WIDTH (BEAKER) (test 13.7 % 11.6-14.4 cycw=500) PLATELET COUNT (BEAKER) (test gqut=597) 339 K/CU MM 150-450 MEAN PLATELET VOLUME (BEAKER) (test dutp=687) 10.7 fL 9.4-12.4 NUCLEATED RED BLOOD CELLS (BEAKER) (test 0 /100 WBC 0-0 qbgn=016) NEUTROPHILS RELATIVE PERCENT (BEAKER) (test 69 % cazp=600) LYMPHOCYTES RELATIVE PERCENT (BEAKER) (test 23 % dzau=402) MONOCYTES RELATIVE PERCENT (BEAKER) (test 7 % bbuz=665) EOSINOPHILS RELATIVE PERCENT (BEAKER) (test 0 % fsjw=394) BASOPHILS RELATIVE PERCENT (BEAKER) (test 0 % dkxi=875) NEUTROPHILS ABSOLUTE COUNT (BEAKER) (test 5.62 K/ L 1.78-5.38 qble=279) LYMPHOCYTES ABSOLUTE COUNT (BEAKER) (test 1.88 K/ L 1.32-3.57 ezge=413) MONOCYTES ABSOLUTE COUNT (BEAKER) (test 0.60 K/ L 0.30-0.82 ugvt=709) EOSINOPHILS ABSOLUTE COUNT (BEAKER) (test 0.00 K/ L 0.04-0.54 icyb=116) BASOPHILS ABSOLUTE COUNT (BEAKER) (test 0.00 K/ L 0.01-0.08 oikh=710) IMMATURE GRANULOCYTES-RELATIVE PERCENT (BEAKER) 1 % 0-1 (test ehwb=5002) POCT-GLUCOSE [id number] 22:08:00 Test Item Value Reference Range Comments POC-GLUCOSE METER (BEAKER) 133 mg/dL 70-110 TESTED AT [address] (test xxdc=5261) [place] [id number] POCT-GLUCOSE [id number] 18:34:00 Test Item Value Reference Range Comments POC-GLUCOSE METER (BEAKER) 151 mg/dL 70-110 TESTED AT [address] (test wbvt=8007) [place] [id number] POCT-GLUCOSE [id number] 12:29:00 Test Item Value Reference Range Comments POC-GLUCOSE METER (BEAKER) 124 mg/dL 70-110 TESTED AT [address] (test aosa=5970) [place] [id number] RAD, CHEST, 1 VIEW, NON [id number] 10:57:00Reason for exam:->SOBShould this be performed at the bedside?->YesFINAL REPORT EXAM: Chest one view COMPARISON: July 13, 2018 CLINICAL HISTORY: Shortness of breath FINDINGS: There is persistent cardiomegaly with mild to moderate left pleural effusion. There is no evidence of pneumothorax. The right internal jugular central venous catheter has been pulled back with its tip overlying the cavoatrial junction. The regional osseous structures are unremarkable. Signed: Lane [place] Verified Date/Time: 07/15/2018 10:57:23 Reading Location: [facility] Radiology Reading Room C. DIFFICILE GDH [id number] 10: 08:00 Test Item Value Reference Range Comments CDT TOXIN (test Negative Negative vcya=[id number]) CDT GDH ANTIGEN (test Negative Negative No indication of Clostridium pxpg=[id number]) difficile infection and no colonization. Discontinue enteric isolation and therapy. Testing performed by [employer] Rapid Cassette Assay. For GDH, published sensitivity of the assay is 98.7% compared to cytotoxicity testing. For Toxin AB, published sensitivity is 87.8% and specificity 99.4% compared to cytotoxicity testing.Verification of kit performance was done by the [facility] Microbiology Lab prior to clinical use.POCT-GLUCOSE [id number] 08:57:00 Test Item Value Reference Range Comments POC-GLUCOSE METER (BEAKER) 159 mg/dL 70-110 TESTED AT [facility] [address] [place] [address] (test sghr=1618) [facility] [address] BLOOD [id number] 08:01:00 Test Item Value Reference Range Comments CULTURE (BEAKER) (test nyrg=1437) No growth in 5 days BLOOD [id number] 08:01:00 Test Item Value Reference Range Comments CULTURE (BEAKER) (test xqph=1443) No growth in 5 days BASIC METABOLIC [id number] 04:49:00 Test Item Value Reference Range Comments SODIUM (BEAKER) (test 137 meq/L 136-145 yvdn=304) POTASSIUM (BEAKER) (test 3.9 meq/L 3.5-5.1 ezkg=048) CHLORIDE (BEAKER) (test 107 meq/L 98-107 mkpb=393) CO2 (BEAKER) (test 24 meq/L 22-29 cmlt=564) BLOOD UREA NITROGEN 8 mg/dL 7-21 (BEAKER) (test dads=413) CREATININE (BEAKER) (test 0.61 mg/dL 0.57-1.25 ckwr=132) GLUCOSE RANDOM (BEAKER) 143 mg/dL 70-105 (test wuqr=099) CALCIUM (BEAKER) (test 7.4 mg/dL 8.4-10.2 rgdy=295) EGFR (BEAKER) (test 156 mL/min/1.73 sq m ESTIMATED GFR IS NOT aysc=7267) ACCURATE CREATININE CLEARANCE IN PREDICTING GLOMERULAR FILTRATION RATE. ESTIMATED GFR IS NOT APPLICABLE FOR DIALYSIS PATIENTS. [id number] 04:29:00 Test Item Value Reference Range Comments PHOSPHORUS (BEAKER) (test kcct=277) 2.7 mg/dL 2.3-4.7 [id number] 04:29:00 Test Item Value Reference Range Comments MAGNESIUM (BEAKER) (test vsor=523) 2.2 mg/dL 1.6-2.6 CBC W/PLT COUNT & AUTO [id number] 04:14:00 Test Item Value Reference Range Comments WHITE BLOOD CELL COUNT (BEAKER) (test erzb=723) 8.5 K/ L 3.5-10.5 RED BLOOD CELL COUNT (BEAKER) (test bouf=958) 3.45 M/ L 4.63-6.08 HEMOGLOBIN (BEAKER) (test schg=769) 9.9 GM/DL 13.7-17.5 HEMATOCRIT (BEAKER) (test dqhq=781) 30.8 % 40.1-51.0 MEAN CORPUSCULAR VOLUME (BEAKER) (test nqsm=684) 89.3 fL 79.0-92.2 MEAN CORPUSCULAR HEMOGLOBIN (BEAKER) (test 28.7 pg 25.7-32.2 qsnf=213) MEAN CORPUSCULAR HEMOGLOBIN CONC (BEAKER) (test 32.1 GM/DL 32.3-36.5 bkne=168) RED CELL DISTRIBUTION WIDTH (BEAKER) (test 13.8 % 11.6-14.4 izdr=267) PLATELET COUNT (BEAKER) (test deqw=061) 317 K/CU MM 150-450 MEAN PLATELET VOLUME (BEAKER) (test kqka=161) 11.0 fL 9.4-12.4 NUCLEATED RED BLOOD CELLS (BEAKER) (test 0 /100 WBC 0-0 xqgo=126) NEUTROPHILS RELATIVE PERCENT (BEAKER) (test 84 % gnay=826) LYMPHOCYTES RELATIVE PERCENT (BEAKER) (test 13 % lnbh=683) MONOCYTES RELATIVE PERCENT (BEAKER) (test 3 % jfqb=099) EOSINOPHILS RELATIVE PERCENT (BEAKER) (test 0 % lexp=603) BASOPHILS RELATIVE PERCENT (BEAKER) (test 0 % oggx=006) NEUTROPHILS ABSOLUTE COUNT (BEAKER) (test 7.13 K/ L 1.78-5.38 sfep=756) LYMPHOCYTES ABSOLUTE COUNT (BEAKER) (test 1.06 K/ L 1.32-3.57 odhn=418) MONOCYTES ABSOLUTE COUNT (BEAKER) (test 0.25 K/ L 0.30-0.82 lwax=683) EOSINOPHILS ABSOLUTE COUNT (BEAKER) (test 0.00 K/ L 0.04-0.54 inup=527) BASOPHILS ABSOLUTE COUNT (BEAKER) (test 0.00 K/ L 0.01-0.08 gkvh=725) IMMATURE GRANULOCYTES-RELATIVE PERCENT (BEAKER) 1 % 0-1 (test dytd=6544) CALCIUM, [id number] 03:58:00 Test Item Value Reference Range Comments CALCIUM IONIZED (BEAKER) (test zluh=054) 1.11 mmol/L 1.12-1.27 PH, BLOOD (BEAKER) (test hfss=7732) 7.41 POCT-GLUCOSE [id number] 23:20:00 Test Item Value Reference Range Comments POC-GLUCOSE METER (BEAKER) 208 mg/dL 70-110 TESTED AT [facility] [address] [facility] (test sarr=8129) [facility] [address] BASIC METABOLIC [id number] 18:01:00 Test Item Value Reference Range Comments SODIUM (BEAKER) (test 139 meq/L 136-145 kwhn=959) POTASSIUM (BEAKER) (test 3.8 meq/L 3.5-5.1 pbnn=875) CHLORIDE (BEAKER) (test 108 meq/L 98-107 xoov=090) CO2 (BEAKER) (test 26 meq/L 22-29 xoaw=414) BLOOD UREA NITROGEN 8 mg/dL 7-21 (BEAKER) (test lfzr=455) CREATININE (BEAKER) (test 0.66 mg/dL 0.57-1.25 fhkb=711) GLUCOSE RANDOM (BEAKER) 157 mg/dL 70-105 (test dxei=312) CALCIUM (BEAKER) (test 7.7 mg/dL 8.4-10.2 sfeg=489) EGFR (BEAKER) (test 143 mL/min/1.73 sq m ESTIMATED GFR IS NOT llem=4243) ACCURATE CREATININE CLEARANCE IN PREDICTING GLOMERULAR FILTRATION RATE. ESTIMATED GFR IS NOT APPLICABLE FOR DIALYSIS PATIENTS. [id number] 18:00:00 Test Item Value Reference Range Comments TRIGLYCERIDES (BEAKER) (test gjlf=920) 125 mg/dL TRIGLYCERIDE REFERENCE RANGELow Risk <150Borderline Risk 150-199High Risk 200-499Very High Risk>=[id number] 18:00:00 Test Item Value Reference Range Comments MAGNESIUM (BEAKER) (test naed=257) 1.6 mg/dL 1.6-2.6 CALCIUM, [id number] 17:46:00 Test Item Value Reference Range Comments CALCIUM IONIZED (BEAKER) (test qrdu=223) 1.13 mmol/L 1.12-1.27 PH, BLOOD (BEAKER) (test dojq=8384) 7.41 POCT-GLUCOSE [id number] 17:45:00 Test Item Value Reference Range Comments POC-GLUCOSE METER (BEAKER) 173 mg/dL 70-110 TESTED AT [address] (test yapj=5627) [facility] [address] POCT-GLUCOSE [id number] 11:46:00 Test Item Value Reference Range Comments POC-GLUCOSE METER (BEAKER) 163 mg/dL 70-110 TESTED AT [address] (test kyqf=6306) [place] [id number] BASIC METABOLIC [id number] 09:43:00 Test Item Value Reference Range Comments SODIUM (BEAKER) (test 140 meq/L 136-145 fbjb=362) POTASSIUM (BEAKER) (test 3.3 meq/L 3.5-5.1 zxem=499) CHLORIDE (BEAKER) (test 108 meq/L 98-107 hhtr=175) CO2 (BEAKER) (test 27 meq/L 22-29 htkb=412) BLOOD UREA NITROGEN 9 mg/dL 7-21 (BEAKER) (test oxjj=444) CREATININE (BEAKER) (test 0.65 mg/dL 0.57-1.25 sxzf=366) GLUCOSE RANDOM (BEAKER) 151 mg/dL 70-105 (test rehl=247) CALCIUM (BEAKER) (test 7.7 mg/dL 8.4-10.2 slxk=116) EGFR (BEAKER) (test 145 mL/min/1.73 sq m ESTIMATED GFR IS NOT aiaf=5408) ACCURATE CREATININE CLEARANCE IN PREDICTING GLOMERULAR FILTRATION RATE. ESTIMATED GFR IS NOT APPLICABLE FOR DIALYSIS PATIENTS. HEPATIC FUNCTION [id number] 09:43:00 Test Item Value Reference Range Comments TOTAL PROTEIN (BEAKER) (test jyne=518) 5.1 gm/dL 6.0-8.3 ALBUMIN (BEAKER) (test fcsb=3008) 2.3 g/dL 3.5-5.0 BILIRUBIN TOTAL (BEAKER) (test ayiw=350) 0.3 mg/dL 0.2-1.2 BILIRUBIN DIRECT (BEAKER) (test gqha=678) 0.3 mg/dL 0.1-0.5 ALKALINE PHOSPHATASE (BEAKER) (test mqim=697) 57 U/L 40-150 AST (SGOT) (BEAKER) (test gdyb=708) 11 U/L 5-34 ALT (SGPT) (BEAKER) (test iesq=783) < U/L 6-55 CALCIUM, [id number] 09:39:00 Test Item Value Reference Range Comments CALCIUM IONIZED (BEAKER) (test xqgp=700) 1.07 mmol/L 1.12-1.27 PH, BLOOD (BEAKER) (test kxst=8812) 7.44 [id number] 09:26:00 Test Item Value Reference Range Comments PHOSPHORUS (BEAKER) (test eyii=552) 2.3 mg/dL 2.3-4.7 [id number] 09:26:00 Test Item Value Reference Range Comments MAGNESIUM (BEAKER) (test mlkl=894) 1.2 mg/dL 1.6-2.6 CBC W/PLT COUNT & AUTO [id number] 09:07:00 Test Item Value Reference Range Comments WHITE BLOOD CELL COUNT (BEAKER) (test adrr=685) 13.5 K/ L 3.5-10.5 RED BLOOD CELL COUNT (BEAKER) (test mnbw=516) 3.62 M/ L 4.63-6.08 HEMOGLOBIN (BEAKER) (test yknl=603) 10.4 GM/DL 13.7-17.5 HEMATOCRIT (BEAKER) (test mgfl=162) 32.1 % 40.1-51.0 MEAN CORPUSCULAR VOLUME (BEAKER) (test ilmy=269) 88.7 fL 79.0-92.2 MEAN CORPUSCULAR HEMOGLOBIN (BEAKER) (test 28.7 pg 25.7-32.2 xtaz=951) MEAN CORPUSCULAR HEMOGLOBIN CONC (BEAKER) (test 32.4 GM/DL 32.3-36.5 zphm=556) RED CELL DISTRIBUTION WIDTH (BEAKER) (test 13.6 % 11.6-14.4 avmm=452) PLATELET COUNT (BEAKER) (test hksr=101) 323 K/CU MM 150-450 MEAN PLATELET VOLUME (BEAKER) (test ymqc=677) 11.0 fL 9.4-12.4 NUCLEATED RED BLOOD CELLS (BEAKER) (test 0 /100 WBC 0-0 bffg=229) NEUTROPHILS RELATIVE PERCENT (BEAKER) (test 87 % fdwm=479) LYMPHOCYTES RELATIVE PERCENT (BEAKER) (test 8 % aehs=715) MONOCYTES RELATIVE PERCENT (BEAKER) (test 5 % lisg=372) EOSINOPHILS RELATIVE PERCENT (BEAKER) (test 0 % gyvd=746) BASOPHILS RELATIVE PERCENT (BEAKER) (test 0 % aghs=730) NEUTROPHILS ABSOLUTE COUNT (BEAKER) (test 11.73 K/ L 1.78-5.38 ukjx=518) LYMPHOCYTES ABSOLUTE COUNT (BEAKER) (test 1.06 K/ L 1.32-3.57 ueey=545) MONOCYTES ABSOLUTE COUNT (BEAKER) (test 0.62 K/ L 0.30-0.82 lymj=781) EOSINOPHILS ABSOLUTE COUNT (BEAKER) (test 0.00 K/ L 0.04-0.54 gpnx=672) BASOPHILS ABSOLUTE COUNT (BEAKER) (test 0.01 K/ L 0.01-0.08 tiwf=888) IMMATURE GRANULOCYTES-RELATIVE PERCENT (BEAKER) 1 % 0-1 (test eljp=0726) POCT-GLUCOSE [id number] 06:10:00 Test Item Value Reference Range Comments POC-GLUCOSE METER (BEAKER) 170 mg/dL 70-110 TESTED AT [address] (test gldy=8778) [facility] [address] POCT-GLUCOSE [id number] 23:12:00 Test Item Value Reference Range Comments POC-GLUCOSE METER (BEAKER) 200 mg/dL 70-110 TESTED AT [address] (test gkiu=3876) [place] [id number] POCT-GLUCOSE [id number] 18:28:00 Test Item Value Reference Range Comments POC-GLUCOSE METER (BEAKER) 153 mg/dL 70-110 TESTED AT [address] (test oski=3736) [place] [id number] RAD, CHEST, 1 VIEW, NON [id number] 17:19:00Reason for exam:->post central lineShould this be performed at the bedside?->YesFINAL REPORT Portable chest. HISTORY: Postcentral line. COMPARISON STUDY: July 13, 2018. FINDINGS: The cardiac size is enlarged. There is a small left-sided pleural effusion with adjacent atelectasis or consolidation. The right lung is largely clear. A right-sided jugular line has been inserted, the tip projecting at the over the right atrium. A cystogastrostomy tube is partially visualized. IMPRESSION: Right jugular line insertion, the tip projecting over the right atrium withno pneumothorax. Signed: Michael Briones MDReport Verified Date/Time: 07/13/2018 17:19:17 Reading Location: [address] Ortho Consult Reading Room POCT-GLUCOSE [id number] 11:45:00 Test Item Value Reference Range Comments POC-GLUCOSE METER (BEAKER) 214 mg/dL 70-110 TESTED AT [address] (test xezj=5525) [facility] [address] CT, [id number] 09:34:00NO PO or IV contrastFINAL REPORT CT scan of the abdomen and [...] technique. FINDINGS: A trace right-sided and small left -sided pleural effusion is seen with extensive atelectasis or consolidation in the left lung base, similar to previous. The abdomen and pelvis are limited by lack ofcontrast. The liver is fatty in attenuation with [...] featureless fluid-filled loops of small bowel measuring upto 3.1 cm. Trace free fluid is seen. No free air is noted. The aorta is normal in caliber. There is no suspicious adenopathy. Bone windows demonstrate no focal abnormal on the. IMPRESSION:1. Trace right-sided and small left-sided pleural effusion with adjacent atelectasis or consolidation, particularly in the left lower lobe which appears atelectatic. This is similar to previous.2. Fatty liver.3. Interval insertion of cystogastrostomy. Residual pigtail catheter in place with no residual fluid adjacent to the stomach or in the lesser sac. A small amount of fluid is seen adjacent to the pancreatic tail tracking along the left anterior pararenal space, decreased from previous.4. Stent in the CBD.5. Splenomegaly.6. Minimal free fluid.7. Mildly dilated, featureless fluid-filled small bowel loops whichcould be related to an enteritis. Signed: Michael Briones MDReport Verified Date/Time: 07/13/2018 09:34:48 Reading Location: [address] Consult Reading Room POCT-GLUCOSE [id number] 06:40:00 Test Item Value Reference Range Comments POC-GLUCOSE METER (BEAKER) 189 mg/dL 70-110 TESTED AT [address] (test uftm=7441) [place] [address] RAD, CHEST, 1 VIEW, NON [id number] 01:21:00Reason for exam:->hypoxia, feverShould this be performed at the bedside?->YesFINAL REPORT Chest one view. Clinical history: hypoxia, fever Comparison: Chest radiograph 06/11/2018 Technique: A single frontal view of the chest was obtained. Findings/impression: The cardiomediastinal contours are stable. There are low lung volumes. There is a small to moderate loculated left pleural effusion with associated atelectasis and/or pneumonia. There is no pneumothorax. There is a left upper quadrant pigtail catheter. Signed: Meghan Mota Verified Date/Time: 07/13/2018 01:21:43 Reading Location: [address] Reading Room Electronically signed by: MEGHAN MOTA MD on 2018 01:21 AMRAD, CHEST, 1 VIEW, NON [id number] 00:42:00Reason for exam:-&gt ;tachycardiaShould this be performed at the bedside?->YesFINAL REPORT RAD, CHEST, 1 VIEW, NON DEPT INDICATION: tachycardia COMPARISON:Prior day's exam FINDINGS: Portable frontal view of the chest. IMPRESSION: Lungs and pleura: Unchanged retrocardiac airspace opacity and layering small left pleural effusion when allowing for differences in technique.. No pneumothorax.Heart and mediastinum: Stable contours. Additional findings: Pigtail catheter overlies the left upper quadrant. Signed: Katie Darden Verified Date/Time: 07/13/2018 00:42:23 POCT-GLUCOSE [id number] 23:31:00 Test Item Value Reference Range Comments POC-GLUCOSE METER (BEAKER) 139 mg/dL 70-110 TESTED AT [address] (test yxfv=7199) [facility] [address] POCT-GLUCOSE [id number] 18:37:00 Test Item Value Reference Range Comments POC-GLUCOSE METER (BEAKER) 108 mg/dL 70-110 TESTED AT [place] [id number] [facility] (test vnuq=7351) [facility] [address] LACTIC ACID, [id number] 17:04:00 Test Item Value Reference Range Comments LACTATE BLOOD VENOUS (2) (BEAKER) (test 0.7 mmol/L 0.5-2.2 gnzi=2116) POCT-GLUCOSE [id number] 13:25:00 Test Item Value Reference Range Comments POC-GLUCOSE METER (BEAKER) 129 mg/dL 70-110 TESTED AT [address] (test bvbt=8944) [place] [address] WOUND CULTURE + GRAM [id number] 11:27:00 Test Item Value Reference Range Comments CULTURE (BEAKER) (test STAPHYLOCOCCUS AUREUS 4+ Staphylococcus nmpu=5581) aureus Clindamycin (test code=10) Erythromycin (test code=4) Linezolid (test code=40) Nitrofurantoin (test code=23) Oxacillin (test code=14) Rifampin (test code=43) Tetracycline (test code=2) Trimethoprim + Sulfamethoxazole (test code=47) Vancomycin (test code=13) GRAM STAIN RESULT 4+ White blood cells (BEAKER) (test zhzs=5494) seen GRAM STAIN RESULT 1+ gram positive cocci (BEAKER) (test in pairs rwol=772132) 4+ Skin floraPOCT-GLUCOSE [id number] 10:27:00 Test Item Value Reference Range Comments POC-GLUCOSE METER (BEAKER) 109 mg/dL 70-110 TESTED AT [address] (test tvqd=2244) [place] [address] LACTIC ACID, [id number] 07:03:00 Test Item Value Reference Range Comments LACTATE BLOOD VENOUS (2) 0.9 mmol/L 0.5-2.2 Specimen slightly hemolyzed (BEAKER) (test rmer=7736) RAD, ABDOMEN/KUB, 1 VIEW [id number] 02:12:00Reason for exam:->UPRIGHT assess for perf; abdomoinal pain s/p proceduretodayShould this be performed at the bedside?->YesFINAL REPORT CLINICAL HISTORY: UPRIGHT assess for perf; abdomoinal pain s/p proceduretoday TECHNIQUE: RAD, ABDOMEN/KUB, 1 VIEW AP COMPARISON: None FINDINGS: Pigtail drainage catheter and gastrocystostomy metal stent overlie left upper quadrant. Plastic biliary stent in the rightupper quadrant. Paucity of bowel gas limits evaluation for obstruction or intra-abdominal pathology.No free intraperitoneal air is identified. Left basilar airspace opacity may represent atelectasis however superimposed infection is difficult to exclude the proper clinical setting. Small left pleuraleffusion. Signed: Katie Darden Verified Date/ Time: 07/12/2018 02:12:57 POCT-LACTIC ACID, [id number] 02:11:00 Test Item Value Reference Range Comments POC-LACTIC ACID, VENOUS 1.5 mmol/L 0.9-1.7 TESTED AT [address] ([facility]) (test pgnl=6568) [place] [address] [id number] 02:11:00 Test Item Value Reference Range Comments POC-GLUCOSE (BEAKER) (test 106 mg/dL 70-110 TESTED AT [address] xrsk=7508) [place] [address] POCT-CALCIUM [id number] 02:11:00 Test Item Value Reference Range Comments POC-CALCIUM IONIZED (BEAKER) 1.15 mmol/L 1.12-1.27 TESTED AT [address] (test gyhk=0574) [place] [address] [id number] 02:11:00 Test Item Value Reference Range Comments POC-HEMATOCRIT (BEAKER) (test 37 % 40-50 TESTED AT [address] opcs=1412) [place] [address] [id number] 02:11:00 Test Item Value Reference Range Comments POC-HEMOGLOBIN (BEAKER) 12.6 g/dL 13.0-16.8 TESTED AT [address] (test gkko=4378) [place] [address]TESTED AT [place] [address] POCT-BLOOD GASES, [id number] 02:10:00 Test Item Value Reference Range Comments TEMP, CELSIUS-POC (BEAKER) 38.4 (test aysj=5604) FIO2-POC (BEAKER) (test 21 TESTED AT [address] rmkt=7705) [place] [address] PH, VENOUS-POC (BEAKER) 7.362 7.320-7.420 (test jhxl=3097) PCO2, VENOUS-POC (BEAKER) 50.1 mm Hg 41.0-51.0 (test fqcx=7399) PO2, VENOUS-POC (BEAKER) 21.0 mm Hg 25.0-40.0 (test crku=3488) SO2, VENOUS-POC (BEAKER) 29.0 % 40.0-70.0 (test dvug=2490) HCO3, VENOUS-POC (BEAKER) 28.0 meq/L 21.0-29.0 (test xjqz=7985) BASE EXCESS, VENOUS-POC 3.0 meq/L -2.0-3.0 (BEAKER) (test ahym=1517) [id number] 02:10:00 Test Item Value Reference Range Comments POC-SODIUM (BEAKER) (test 139 meq/L 135-148 TESTED AT [place] [address] [address] yhgp=5949) [place] [address] [id number] 02:10:00 Test Item Value Reference Range Comments POC-POTASSIUM (BEAKER) (test 3.7 meq/L 3.6-5.5 TESTED AT [place] [address] [address] yznh=2078) [place] [id number] HEPATIC FUNCTION [id number] 02:04:00 Test Item Value Reference Range Comments TOTAL PROTEIN (BEAKER) (test jnwj=594) 6.2 gm/dL 6.0-8.3 ALBUMIN (BEAKER) (test bxvv=9077) 2.7 g/dL 3.5-5.0 BILIRUBIN TOTAL (BEAKER) (test rarq=896) 0.5 mg/dL 0.2-1.2 BILIRUBIN DIRECT (BEAKER) (test cfbq=955) 0.3 mg/dL 0.1-0.5 ALKALINE PHOSPHATASE (BEAKER) (test cltt=758) 86 U/L 40-150 AST (SGOT) (BEAKER) (test obfr=949) 14 U/L 5-34 ALT (SGPT) (BEAKER) (test yrfz=929) 8 U/L 6-55 BASIC METABOLIC [id number] 02:04:00 Test Item Value Reference Range Comments SODIUM (BEAKER) (test 138 meq/L 136-145 cmuo=560) POTASSIUM (BEAKER) (test 3.7 meq/L 3.5-5.1 xsgj=763) CHLORIDE (BEAKER) (test 107 meq/L 98-107 ykgc=915) CO2 (BEAKER) (test 22 meq/L 22-29 xmml=384) BLOOD UREA NITROGEN 3 mg/dL 7-21 (BEAKER) (test pyin=698) CREATININE (BEAKER) (test 0.74 mg/dL 0.57-1.25 mkay=367) GLUCOSE RANDOM (BEAKER) 133 mg/dL 70-105 (test fndi=169) CALCIUM (BEAKER) (test 8.1 mg/dL 8.4-10.2 mgsv=519) EGFR (BEAKER) (test 125 mL/min/1.73 sq m ESTIMATED GFR IS NOT jyga=1431) ACCURATE CREATININE CLEARANCE IN PREDICTING GLOMERULAR FILTRATION RATE. ESTIMATED GFR IS NOT APPLICABLE FOR DIALYSIS PATIENTS. CBC W/PLT COUNT & AUTO [id number] 02:03:00 Test Item Value Reference Range Comments WHITE BLOOD CELL COUNT (BEAKER) (test czju=328) 10.8 K/ L 3.5-10.5 RED BLOOD CELL COUNT (BEAKER) (test vkin=922) 4.07 M/ L 4.63-6.08 HEMOGLOBIN (BEAKER) (test kcbw=445) 11.8 GM/DL 13.7-17.5 HEMATOCRIT (BEAKER) (test huse=292) 37.3 % 40.1-51.0 MEAN CORPUSCULAR VOLUME (BEAKER) (test zveq=639) 91.6 fL 79.0-92.2 MEAN CORPUSCULAR HEMOGLOBIN (BEAKER) (test 29.0 pg 25.7-32.2 pymn=935) MEAN CORPUSCULAR HEMOGLOBIN CONC (BEAKER) (test 31.6 GM/DL 32.3-36.5 kqwo=824) RED CELL DISTRIBUTION WIDTH (BEAKER) (test 13.8 % 11.6-14.4 fgjs=374) PLATELET COUNT (BEAKER) (test ipef=427) 295 K/CU MM 150-450 MEAN PLATELET VOLUME (BEAKER) (test ydtq=373) 11.1 fL 9.4-12.4 NUCLEATED RED BLOOD CELLS (BEAKER) (test 0 /100 WBC 0-0 elnz=114) NEUTROPHILS RELATIVE PERCENT (BEAKER) (test 84 % wqtk=068) LYMPHOCYTES RELATIVE PERCENT (BEAKER) (test 9 % taty=599) MONOCYTES RELATIVE PERCENT (BEAKER) (test 6 % amqm=081) EOSINOPHILS RELATIVE PERCENT (BEAKER) (test 0 % xuef=596) BASOPHILS RELATIVE PERCENT (BEAKER) (test 0 % ohpx=911) NEUTROPHILS ABSOLUTE COUNT (BEAKER) (test 9.10 K/ L 1.78-5.38 qako=679) LYMPHOCYTES ABSOLUTE COUNT (BEAKER) (test 0.97 K/ L 1.32-3.57 prju=075) MONOCYTES ABSOLUTE COUNT (BEAKER) (test 0.68 K/ L 0.30-0.82 kwih=567) EOSINOPHILS ABSOLUTE COUNT (BEAKER) (test 0.01 K/ L 0.04-0.54 arju=594) BASOPHILS ABSOLUTE COUNT (BEAKER) (test 0.02 K/ L 0.01-0.08 yxek=258) IMMATURE GRANULOCYTES-RELATIVE PERCENT (BEAKER) 0 % 0-1 (test dmrf=7806) POCT-GLUCOSE [id number] 00:17:00 Test Item Value Reference Range Comments POC-GLUCOSE METER (BEAKER) 137 mg/dL 70-110 TESTED AT [address] (test lghz=0324) [place] [address] POCT-GLUCOSE [id number] 18:14:00 Test Item Value Reference Range Comments POC-GLUCOSE METER (BEAKER) 106 mg/dL 70-110 TESTED AT [address] (test mwrq=3827) [place] [address] VANCOMYCIN LEVEL, [id number] 14:20:00 Test Item Value Reference Range Comments VANCOMYCIN TROUGH (BEAKER) (test wbjx=132) 7.1 ug/mL 10.0-20.0 If vancomycin trough level > 20 mcg/mL, hold next vancomycin dose, and contact MD and pharmacist.POCT-GLUCOSE [id number] 13:10:00 Test Item Value Reference Range Comments POC-GLUCOSE METER (BEAKER) 155 mg/dL 70-110 TESTED AT [address] (test oeco=5672) [place] [address] HEPATIC FUNCTION [id number] 06:51:00 Test Item Value Reference Range Comments TOTAL PROTEIN (BEAKER) (test nadb=836) 6.5 gm/dL 6.0-8.3 ALBUMIN (BEAKER) (test ehgj=9436) 2.9 g/dL 3.5-5.0 BILIRUBIN TOTAL (BEAKER) (test rdko=049) 0.4 mg/dL 0.2-1.2 BILIRUBIN DIRECT (BEAKER) (test uwvg=831) 0.2 mg/dL 0.1-0.5 ALKALINE PHOSPHATASE (BEAKER) (test tjpj=851) 94 U/L 40-150 AST (SGOT) (BEAKER) (test tyqx=991) 14 U/L 5-34 ALT (SGPT) (BEAKER) (test xpxa=571) 11 U/L 6-55 BASIC METABOLIC [id number] 06:51:00 Test Item Value Reference Range Comments SODIUM (BEAKER) (test 138 meq/L 136-145 mpbj=818) POTASSIUM (BEAKER) (test 3.6 meq/L 3.5-5.1 wanx=006) CHLORIDE (BEAKER) (test 106 meq/L 98-107 rkqt=404) CO2 (BEAKER) (test 24 meq/L 22-29 rgbw=015) BLOOD UREA NITROGEN 3 mg/dL 7-21 (BEAKER) (test hkdl=596) CREATININE (BEAKER) (test 0.68 mg/dL 0.57-1.25 tijl=532) GLUCOSE RANDOM (BEAKER) 96 mg/dL 70-105 (test hptz=261) CALCIUM (BEAKER) (test 8.2 mg/dL 8.4-10.2 bxap=733) EGFR (BEAKER) (test 138 mL/min/1.73 sq m ESTIMATED GFR IS NOT fedm=3965) ACCURATE CREATININE CLEARANCE IN PREDICTING GLOMERULAR FILTRATION RATE. ESTIMATED GFR IS NOT APPLICABLE FOR DIALYSIS PATIENTS. CBC W/PLT COUNT & AUTO [id number] 05:32:00 Test Item Value Reference Range Comments WHITE BLOOD CELL COUNT (BEAKER) (test tmva=907) 6.7 K/ L 3.5-10.5 RED BLOOD CELL COUNT (BEAKER) (test kyyi=967) 4.03 M/ L 4.63-6.08 HEMOGLOBIN (BEAKER) (test lhwa=494) 11.6 GM/DL 13.7-17.5 HEMATOCRIT (BEAKER) (test eern=013) 36.9 % 40.1-51.0 MEAN CORPUSCULAR VOLUME (BEAKER) (test bkov=763) 91.6 fL 79.0-92.2 MEAN CORPUSCULAR HEMOGLOBIN (BEAKER) (test 28.8 pg 25.7-32.2 kcwh=315) MEAN CORPUSCULAR HEMOGLOBIN CONC (BEAKER) (test 31.4 GM/DL 32.3-36.5 qggw=775) RED CELL DISTRIBUTION WIDTH (BEAKER) (test 13.7 % 11.6-14.4 aceh=834) PLATELET COUNT (BEAKER) (test cxbd=455) 298 K/CU MM 150-450 MEAN PLATELET VOLUME (BEAKER) (test xgbt=691) 10.6 fL 9.4-12.4 NUCLEATED RED BLOOD CELLS (BEAKER) (test 0 /100 WBC 0-0 rkca=999) NEUTROPHILS RELATIVE PERCENT (BEAKER) (test 67 % gcsf=246) LYMPHOCYTES RELATIVE PERCENT (BEAKER) (test 20 % qpmu=003) MONOCYTES RELATIVE PERCENT (BEAKER) (test 7 % nmfg=351) EOSINOPHILS RELATIVE PERCENT (BEAKER) (test 4 % wriz=568) BASOPHILS RELATIVE PERCENT (BEAKER) (test 0 % tdyh=004) NEUTROPHILS ABSOLUTE COUNT (BEAKER) (test 4.52 K/ L 1.78-5.38 yjvc=356) LYMPHOCYTES ABSOLUTE COUNT (BEAKER) (test 1.35 K/ L 1.32-3.57 lbcf=636) MONOCYTES ABSOLUTE COUNT (BEAKER) (test 0.50 K/ L 0.30-0.82 yjrq=375) EOSINOPHILS ABSOLUTE COUNT (BEAKER) (test 0.29 K/ L 0.04-0.54 hjam=283) BASOPHILS ABSOLUTE COUNT (BEAKER) (test 0.03 K/ L 0.01-0.08 oxln=904) IMMATURE GRANULOCYTES-RELATIVE PERCENT (BEAKER) 0 % 0-1 (test niuk=8870) [id number] 11:08:00 Test Item Value Reference Range Comments PARTIAL THROMBOPLASTIN TIME (BEAKER) (test 47.0 seconds 22.5-36.0 sohn=589) PROTHROMBIN [id number] 11:07:00 Test Item Value Reference Range Comments PROTIME (BEAKER) (test mppv=975) 16.1 seconds 11.9-14.2 INR (BEAKER) (test hwzv=376) 1.4 <=5.9 Effective 07/03/2018: PT Reference Range ChangeNew: 11.9-14.2 Previous: 11.7- 14.7RECOMMENDED COUMADIN/WARFARIN INR THERAPY RANGESSTANDARD DOSE: 2.0-3.0 Includes: PROPHYLAXIS for venous thrombosis, systemic embolization; TREATMENT for venous thrombosis and/or pulmonary embolus.HIGH RISK: Target INR is2.5-3.5 for patients wiht mechanical heart valves.HEPATIC FUNCTION [id number] 01:46 :00 Test Item Value Reference Range Comments TOTAL PROTEIN (BEAKER) (test utgv=914) 6.6 gm/dL 6.0-8.3 ALBUMIN (BEAKER) (test fxtx=5212) 3.0 g/dL 3.5-5.0 BILIRUBIN TOTAL (BEAKER) (test nsyn=596) 0.5 mg/dL 0.2-1.2 BILIRUBIN DIRECT (BEAKER) (test znnx=977) 0.3 mg/dL 0.1-0.5 ALKALINE PHOSPHATASE (BEAKER) (test pagr=425) 97 U/L 40-150 AST (SGOT) (BEAKER) (test vmof=755) 24 U/L 5-34 ALT (SGPT) (BEAKER) (test cchc=209) 16 U/L 6-55 BASIC METABOLIC [id number] 01:46:00 Test Item Value Reference Range Comments SODIUM (BEAKER) (test 139 meq/L 136-145 tqpl=981) POTASSIUM (BEAKER) (test 3.7 meq/L 3.5-5.1 xfoy=766) CHLORIDE (BEAKER) (test 107 meq/L 98-107 evnw=506) CO2 (BEAKER) (test 24 meq/L 22-29 hrmc=252) BLOOD UREA NITROGEN 3 mg/dL 7-21 (BEAKER) (test fiif=258) CREATININE (BEAKER) (test 0.68 mg/dL 0.57-1.25 runj=469) GLUCOSE RANDOM (BEAKER) 90 mg/dL 70-105 (test xtrt=289) CALCIUM (BEAKER) (test 8.6 mg/dL 8.4-10.2 hfon=289) EGFR (BEAKER) (test 138 mL/min/1.73 sq m ESTIMATED GFR IS NOT rsgi=6593) ACCURATE CREATININE CLEARANCE IN PREDICTING GLOMERULAR FILTRATION RATE. ESTIMATED GFR IS NOT APPLICABLE FOR DIALYSIS PATIENTS. CBC W/PLT COUNT & AUTO [id number] 01:19:00 Test Item Value Reference Range Comments WHITE BLOOD CELL COUNT (BEAKER) (test muvw=484) 9.9 K/ L 3.5-10.5 RED BLOOD CELL COUNT (BEAKER) (test zseb=638) 4.00 M/ L 4.63-6.08 HEMOGLOBIN (BEAKER) (test ydqw=779) 11.7 GM/DL 13.7-17.5 HEMATOCRIT (BEAKER) (test vwoc=688) 36.1 % 40.1-51.0 MEAN CORPUSCULAR VOLUME (BEAKER) (test liok=377) 90.3 fL 79.0-92.2 MEAN CORPUSCULAR HEMOGLOBIN (BEAKER) (test 29.3 pg 25.7-32.2 xiqe=117) MEAN CORPUSCULAR HEMOGLOBIN CONC (BEAKER) (test 32.4 GM/DL 32.3-36.5 jeqp=859) RED CELL DISTRIBUTION WIDTH (BEAKER) (test 13.5 % 11.6-14.4 cune=252) PLATELET COUNT (BEAKER) (test wmez=221) 298 K/CU MM 150-450 MEAN PLATELET VOLUME (BEAKER) (test ufjg=884) 10.8 fL 9.4-12.4 NUCLEATED RED BLOOD CELLS (BEAKER) (test 0 /100 WBC 0-0 hkxf=463) NEUTROPHILS RELATIVE PERCENT (BEAKER) (test 71 % isxt=300) LYMPHOCYTES RELATIVE PERCENT (BEAKER) (test 17 % ftkq=844) MONOCYTES RELATIVE PERCENT (BEAKER) (test 8 % fldh=840) EOSINOPHILS RELATIVE PERCENT (BEAKER) (test 3 % edhj=337) BASOPHILS RELATIVE PERCENT (BEAKER) (test 1 % cggo=053) NEUTROPHILS ABSOLUTE COUNT (BEAKER) (test 7.08 K/ L 1.78-5.38 uize=388) LYMPHOCYTES ABSOLUTE COUNT (BEAKER) (test 1.69 K/ L 1.32-3.57 bwbo=956) MONOCYTES ABSOLUTE COUNT (BEAKER) (test 0.76 K/ L 0.30-0.82 ntwh=982) EOSINOPHILS ABSOLUTE COUNT (BEAKER) (test 0.32 K/ L 0.04-0.54 jsjt=197) BASOPHILS ABSOLUTE COUNT (BEAKER) (test 0.05 K/ L 0.01-0.08 munb=016) IMMATURE GRANULOCYTES-RELATIVE PERCENT (BEAKER) 0 % 0-1 (test aplk=8818) BETA-2 GLYCOPROTEIN [id number] 08:02:00 Test Item Value Reference Range Comments B2 GLYCOPROTEIN AUTOVERIFICATION Refer to individual COMPONENT (test snrj=5366) B2-Glycoprotein IgG, IgM and IgA results. [id number] 07:34:00 Test Item Value Reference Range Comments MAGNESIUM (BEAKER) (test tncr=906) 1.6 mg/dL 1.6-2.6 BASIC METABOLIC [id number] 07:34:00 Test Item Value Reference Range Comments SODIUM (BEAKER) (test 138 meq/L 136-145 zpcr=762) POTASSIUM (BEAKER) (test 4.4 meq/L 3.5-5.1 urit=052) CHLORIDE (BEAKER) (test 102 meq/L 98-107 wtcm=557) CO2 (BEAKER) (test 24 meq/L 22-29 erim=030) BLOOD UREA NITROGEN 7 mg/dL 7-21 (BEAKER) (test izmb=677) CREATININE (BEAKER) (test 0.80 mg/dL 0.57-1.25 mnwe=144) GLUCOSE RANDOM (BEAKER) 93 mg/dL 70-105 (test owej=897) CALCIUM (BEAKER) (test 9.6 mg/dL 8.4-10.2 uusq=144) EGFR (BEAKER) (test 114 mL/min/1.73 sq m ESTIMATED GFR IS NOT astx=7547) ACCURATE CREATININE CLEARANCE IN PREDICTING GLOMERULAR FILTRATION RATE. ESTIMATED GFR IS NOT APPLICABLE FOR DIALYSIS PATIENTS. HEPATIC FUNCTION [id number] 07:34:00 Test Item Value Reference Range Comments TOTAL PROTEIN (BEAKER) (test hfvp=650) 7.6 gm/dL 6.0-8.3 ALBUMIN (BEAKER) (test xxju=0170) 3.3 g/dL 3.5-5.0 BILIRUBIN TOTAL (BEAKER) (test ppzi=895) 0.7 mg/dL 0.2-1.2 BILIRUBIN DIRECT (BEAKER) (test qipd=744) 0.5 mg/dL 0.1-0.5 ALKALINE PHOSPHATASE (BEAKER) (test wsgr=016) 105 U/L 40-150 AST (SGOT) (BEAKER) (test uipf=107) 38 U/L 5-34 ALT (SGPT) (BEAKER) (test lnfi=051) 41 U/L 6-55 [id number] 07:23:00 Test Item Value Reference Range Comments PROTIME (BEAKER) (test spvh=277) 14.8 seconds 11.7-14.7 INR (BEAKER) (test bzcn=587) 1.2 <=5.9 PARTIAL THROMBOPLASTIN TIME (BEAKER) (test 33.8 seconds 22.5-36.0 fhnd=527) RECOMMENDED COUMADIN/WARFARIN INR THERAPY RANGESSTANDARD DOSE: 2.0 - 3.0 Includes: PROPHYLAXIS forvenous thrombosis, systemic embolization; TREATMENT for venous thrombosis and/or pulmonary embolus.HIGH RISK: Target INR is 2.5-3.5 for patients with mechanical heart valves.CBC W/PLT COUNT & AUTO [id number] 07:19:00 Test Item Value Reference Range Comments WHITE BLOOD CELL COUNT (BEAKER) (test lrbf=057) 11.2 K/ L 3.5-10.5 RED BLOOD CELL COUNT (BEAKER) (test gpbg=553) 4.39 M/ L 4.63-6.08 HEMOGLOBIN (BEAKER) (test taed=596) 12.7 GM/DL 13.7-17.5 HEMATOCRIT (BEAKER) (test jemp=639) 40.5 % 40.1-51.0 MEAN CORPUSCULAR VOLUME (BEAKER) (test pnhz=467) 92.3 fL 79.0-92.2 MEAN CORPUSCULAR HEMOGLOBIN (BEAKER) (test 28.9 pg 25.7-32.2 bmrh=436) MEAN CORPUSCULAR HEMOGLOBIN CONC (BEAKER) (test 31.4 GM/DL 32.3-36.5 zbia=432) RED CELL DISTRIBUTION WIDTH (BEAKER) (test 13.4 % 11.6-14.4 fbjy=136) PLATELET COUNT (BEAKER) (test bwla=714) 570 K/CU MM 150-450 MEAN PLATELET VOLUME (BEAKER) (test rrfa=069) 10.5 fL 9.4-12.4 NUCLEATED RED BLOOD CELLS (BEAKER) (test 0 /100 WBC 0-0 ojqo=403) NEUTROPHILS RELATIVE PERCENT (BEAKER) (test 64 % umtt=005) LYMPHOCYTES RELATIVE PERCENT (BEAKER) (test 20 % ecuq=322) MONOCYTES RELATIVE PERCENT (BEAKER) (test 9 % jnrj=298) EOSINOPHILS RELATIVE PERCENT (BEAKER) (test 5 % rkjl=549) BASOPHILS RELATIVE PERCENT (BEAKER) (test 1 % tiyo=680) NEUTROPHILS ABSOLUTE COUNT (BEAKER) (test 7.13 K/ L 1.78-5.38 rsag=164) LYMPHOCYTES ABSOLUTE COUNT (BEAKER) (test 2.20 K/ L 1.32-3.57 lrxx=429) MONOCYTES ABSOLUTE COUNT (BEAKER) (test 0.95 K/ L 0.30-0.82 qcub=790) EOSINOPHILS ABSOLUTE COUNT (BEAKER) (test 0.59 K/ L 0.04-0.54 yxls=012) BASOPHILS ABSOLUTE COUNT (BEAKER) (test 0.14 K/ L 0.01-0.08 giql=492) IMMATURE GRANULOCYTES-RELATIVE PERCENT (BEAKER) 2 % 0-1 (test pnho=0879) LUPUS ANTICOAGULANT SCREEN WITH REFLEX TO [id number] 09:29:00 Test Item Value Reference Range Comments DRVV SCREEN RATIO (BEAKER) 1.39 <1.20 (test hpyj=3164) DRVV CONFIRM RATIO (test 1.21 vwur=6014) DRVV INTERPRETATION (BEAKER) Positive screen for Lupus (test vvzx=3423) Anticoagulant with hexagonal phospholipid confirmation. Suggest repeat testing in 12 weeks and when patient not receiving anticoagulant therapy. PROTIME (BEAKER) (test 19.6 seconds 11.7-14.7 mkuc=225) INR (BEAKER) (test jxfj=400) 1.7 <=5.9 PARTIAL THROMBOPLASTIN TIME 57.5 seconds 22.5-36.0 (BEAKER) (test jvgw=887) PTT-LA (BEAKER) (test 61.5 32.0-41.8 lmtn=[id number]) [id number] (BEAKER) Christy Smith MD (test jhpn=3812) (electronic signature) [id number] 08:06:00 Test Item Value Reference Range Comments MAGNESIUM (BEAKER) (test uwhk=301) 1.7 mg/dL 1.6-2.6 BASIC METABOLIC [id number] 08:06:00 Test Item Value Reference Range Comments SODIUM (BEAKER) (test 135 meq/L 136-145 aelw=973) POTASSIUM (BEAKER) (test 4.1 meq/L 3.5-5.1 mlpl=129) CHLORIDE (BEAKER) (test 101 meq/L 98-107 ypeq=415) CO2 (BEAKER) (test 24 meq/L 22-29 cbjq=651) BLOOD UREA NITROGEN 6 mg/dL 7-21 (BEAKER) (test qfsg=069) CREATININE (BEAKER) (test 0.81 mg/dL 0.57-1.25 acxq=661) GLUCOSE RANDOM (BEAKER) 101 mg/dL 70-105 (test nwmi=237) CALCIUM (BEAKER) (test 9.3 mg/dL 8.4-10.2 jyxi=407) EGFR (BEAKER) (test 113 mL/min/1.73 sq m ESTIMATED GFR IS NOT iqfx=0822) ACCURATE CREATININE CLEARANCE IN PREDICTING GLOMERULAR FILTRATION RATE. ESTIMATED GFR IS NOT APPLICABLE FOR DIALYSIS PATIENTS. HEPATIC FUNCTION [id number] 08:06:00 Test Item Value Reference Range Comments TOTAL PROTEIN (BEAKER) (test hwkn=715) 7.6 gm/dL 6.0-8.3 ALBUMIN (BEAKER) (test byro=4228) 3.2 g/dL 3.5-5.0 BILIRUBIN TOTAL (BEAKER) (test tyxh=978) 0.7 mg/dL 0.2-1.2 BILIRUBIN DIRECT (BEAKER) (test sedb=246) 0.5 mg/dL 0.1-0.5 ALKALINE PHOSPHATASE (BEAKER) (test yqmu=908) 108 U/L 40-150 AST (SGOT) (BEAKER) (test jdyx=416) 37 U/L 5-34 ALT (SGPT) (BEAKER) (test dbsr=492) 39 U/L 6-55 CBC W/PLT COUNT & AUTO [id number] 07:58:00 Test Item Value Reference Range Comments WHITE BLOOD CELL COUNT (BEAKER) (test luie=028) 12.1 K/ L 3.5-10.5 RED BLOOD CELL COUNT (BEAKER) (test djen=952) 4.28 M/ L 4.63-6.08 HEMOGLOBIN (BEAKER) (test dtlm=674) 12.3 GM/DL 13.7-17.5 HEMATOCRIT (BEAKER) (test kpiv=364) 38.9 % 40.1-51.0 MEAN CORPUSCULAR VOLUME (BEAKER) (test zfaf=082) 90.9 fL 79.0-92.2 MEAN CORPUSCULAR HEMOGLOBIN (BEAKER) (test 28.7 pg 25.7-32.2 wgcg=487) MEAN CORPUSCULAR HEMOGLOBIN CONC (BEAKER) (test 31.6 GM/DL 32.3-36.5 lepw=581) RED CELL DISTRIBUTION WIDTH (BEAKER) (test 13.3 % 11.6-14.4 kvge=642) PLATELET COUNT (BEAKER) (test yjto=073) 624 K/CU MM 150-450 MEAN PLATELET VOLUME (BEAKER) (test guvb=863) 10.4 fL 9.4-12.4 NUCLEATED RED BLOOD CELLS (BEAKER) (test 0 /100 WBC 0-0 rqks=635) NEUTROPHILS RELATIVE PERCENT (BEAKER) (test 66 % dpyb=416) LYMPHOCYTES RELATIVE PERCENT (BEAKER) (test 18 % jlvi=809) MONOCYTES RELATIVE PERCENT (BEAKER) (test 9 % wvve=899) EOSINOPHILS RELATIVE PERCENT (BEAKER) (test 5 % nkks=959) BASOPHILS RELATIVE PERCENT (BEAKER) (test 1 % jwhc=743) NEUTROPHILS ABSOLUTE COUNT (BEAKER) (test 7.94 K/ L 1.78-5.38 gabv=817) LYMPHOCYTES ABSOLUTE COUNT (BEAKER) (test 2.11 K/ L 1.32-3.57 rfvk=047) MONOCYTES ABSOLUTE COUNT (BEAKER) (test 1.13 K/ L 0.30-0.82 kzlb=448) EOSINOPHILS ABSOLUTE COUNT (BEAKER) (test 0.60 K/ L 0.04-0.54 bfia=784) BASOPHILS ABSOLUTE COUNT (BEAKER) (test 0.15 K/ L 0.01-0.08 ycjz=619) IMMATURE GRANULOCYTES-RELATIVE PERCENT (BEAKER) 1 % 0-1 (test opes=5474) PROTHROMBIN [id number] 07:26:00 Test Item Value Reference Range Comments PROTIME (BEAKER) (test hjvy=536) 14.5 seconds 11.7-14.7 INR (BEAKER) (test sxyu=814) 1.2 <=5.9 RECOMMENDED COUMADIN/WARFARIN INR THERAPY RANGESSTANDARD DOSE: 2.0 - 3.0 Includes: PROPHYLAXIS forvenous thrombosis, systemic embolization; TREATMENT for venous thrombosis and/or pulmonary embolus.HIGH RISK: Target INR is 2.5-3.5 for patients with mechanical heart valves.PT/[id number] 07:26:00 Test Item Value Reference Range Comments PROTIME (BEAKER) (test actj=358) 14.5 seconds 11.7-14.7 INR (BEAKER) (test wmep=764) 1.2 <=5.9 PARTIAL THROMBOPLASTIN TIME (BEAKER) (test 38.9 seconds 22.5-36.0 ezcz=572) RECOMMENDED COUMADIN/WARFARIN INR THERAPY RANGESSTANDARD DOSE: 2.0 - 3.0 Includes: PROPHYLAXIS forvenous thrombosis, systemic embolization; TREATMENT for venous thrombosis and/or pulmonary embolus.HIGH RISK: Target INR is 2.5-3.5 for patients with mechanical heart valves.HEXAGONAL [id number] 14:07 :00 Test Item Value Reference Range Comments HEXAGONAL PHOSPHOLIPID (BEAKER) (test wvsd=1072) Positive 1:1 MIXING STUDY, [id number] 09:07:00 Test Item Value Reference Range Comments PROTIME (BEAKER) (test enmg=377) 19.6 seconds 11.7-14.7 PARTIAL THROMBOPLASTIN TIME (BEAKER) (test 57.5 seconds 22.5-36.0 rkpe=354) PT 1/1 MIX (BEAKER) (test tqan=5478) 14.4 SECS 11.7-14.7 PTT 1/1 MIX (BEAKER) (test ftpm=0449) 41.9 SECS 22.5-36.0 PT/[id number] 07:05:00 Test Item Value Reference Range Comments PROTIME (BEAKER) (test stsc=317) 16.9 seconds 11.7-14.7 INR (BEAKER) (test uchl=590) 1.4 <=5.9 PARTIAL THROMBOPLASTIN TIME (BEAKER) (test 43.7 seconds 22.5-36.0 nair=845) RECOMMENDED COUMADIN/WARFARIN INR THERAPY RANGESSTANDARD DOSE: 2.0 - 3.0 Includes: PROPHYLAXIS forvenous thrombosis, systemic embolization; TREATMENT for venous thrombosis and/or pulmonary embolus.HIGH RISK: Target INR is 2.5-3.5 for patients with mechanical heart valves.PROTHROMBIN [id number] 07:04: 00 Test Item Value Reference Range Comments PROTIME (BEAKER) (test eoma=461) 16.9 seconds 11.7-14.7 INR (BEAKER) (test vxcx=556) 1.4 <=5.9 RECOMMENDED COUMADIN/WARFARIN INR THERAPY RANGESSTANDARD DOSE: 2.0 - 3.0 Includes: PROPHYLAXIS forvenous thrombosis, systemic embolization; TREATMENT for venous thrombosis and/or pulmonary embolus.HIGH RISK: Target INR is 2.5-3.5 for patients with mechanical heart valves.[id number] 06:49:00 Test Item Value Reference Range Comments MAGNESIUM (BEAKER) (test vuim=341) 1.7 mg/dL 1.6-2.6 BASIC METABOLIC [id number] 06:49:00 Test Item Value Reference Range Comments SODIUM (BEAKER) (test 135 meq/L 136-145 bvhv=791) POTASSIUM (BEAKER) (test 4.2 meq/L 3.5-5.1 dmld=219) CHLORIDE (BEAKER) (test 101 meq/L 98-107 vqxv=340) CO2 (BEAKER) (test 25 meq/L 22-29 wcmw=156) BLOOD UREA NITROGEN 6 mg/dL 7-21 (BEAKER) (test mzdu=110) CREATININE (BEAKER) (test 0.73 mg/dL 0.57-1.25 hrwn=901) GLUCOSE RANDOM (BEAKER) 96 mg/dL 70-105 (test iqgx=666) CALCIUM (BEAKER) (test 9.0 mg/dL 8.4-10.2 phkd=278) EGFR (BEAKER) (test 127 mL/min/1.73 sq m ESTIMATED GFR IS NOT xuch=7257) ACCURATE CREATININE CLEARANCE IN PREDICTING GLOMERULAR FILTRATION RATE. ESTIMATED GFR IS NOT APPLICABLE FOR DIALYSIS PATIENTS. HEPATIC FUNCTION [id number] 06:49:00 Test Item Value Reference Range Comments TOTAL PROTEIN (BEAKER) (test cgga=778) 7.3 gm/dL 6.0-8.3 ALBUMIN (BEAKER) (test josx=9375) 3.0 g/dL 3.5-5.0 BILIRUBIN TOTAL (BEAKER) (test dlbl=020) 0.8 mg/dL 0.2-1.2 BILIRUBIN DIRECT (BEAKER) (test amsg=937) 0.5 mg/dL 0.1-0.5 ALKALINE PHOSPHATASE (BEAKER) (test zehc=491) 108 U/L 40-150 AST (SGOT) (BEAKER) (test jfvf=739) 40 U/L 5-34 ALT (SGPT) (BEAKER) (test ajqr=901) 42 U/L 6-55 CBC W/PLT COUNT & AUTO [id number] 06:36:00 Test Item Value Reference Range Comments WHITE BLOOD CELL COUNT (BEAKER) (test bpri=245) 10.1 K/ L 3.5-10.5 RED BLOOD CELL COUNT (BEAKER) (test qfpm=598) 4.19 M/ L 4.63-6.08 HEMOGLOBIN (BEAKER) (test gjrh=694) 12.1 GM/DL 13.7-17.5 HEMATOCRIT (BEAKER) (test xpmq=975) 38.7 % 40.1-51.0 MEAN CORPUSCULAR VOLUME (BEAKER) (test xcna=688) 92.4 fL 79.0-92.2 MEAN CORPUSCULAR HEMOGLOBIN (BEAKER) (test 28.9 pg 25.7-32.2 rfom=677) MEAN CORPUSCULAR HEMOGLOBIN CONC (BEAKER) (test 31.3 GM/DL 32.3-36.5 xmjz=871) RED CELL DISTRIBUTION WIDTH (BEAKER) (test 13.3 % 11.6-14.4 oyex=429) PLATELET COUNT (BEAKER) (test igxr=388) 582 K/CU MM 150-450 MEAN PLATELET VOLUME (BEAKER) (test nfyy=378) 10.7 fL 9.4-12.4 NUCLEATED RED BLOOD CELLS (BEAKER) (test 0 /100 WBC 0-0 rtub=578) NEUTROPHILS RELATIVE PERCENT (BEAKER) (test 66 % hiac=721) LYMPHOCYTES RELATIVE PERCENT (BEAKER) (test 18 % elcf=713) MONOCYTES RELATIVE PERCENT (BEAKER) (test 8 % gtbb=552) EOSINOPHILS RELATIVE PERCENT (BEAKER) (test 5 % viuy=307) BASOPHILS RELATIVE PERCENT (BEAKER) (test 1 % oizr=138) NEUTROPHILS ABSOLUTE COUNT (BEAKER) (test 6.68 K/ L 1.78-5.38 ayur=498) LYMPHOCYTES ABSOLUTE COUNT (BEAKER) (test 1.80 K/ L 1.32-3.57 ypor=615) MONOCYTES ABSOLUTE COUNT (BEAKER) (test 0.81 K/ L 0.30-0.82 rptj=788) EOSINOPHILS ABSOLUTE COUNT (BEAKER) (test 0.52 K/ L 0.04-0.54 gult=996) BASOPHILS ABSOLUTE COUNT (BEAKER) (test 0.11 K/ L 0.01-0.08 ntni=812) IMMATURE GRANULOCYTES-RELATIVE PERCENT (BEAKER) 1 % 0-1 (test axbq=5338) CARDIOLIPIN ANTIBODIES, IGG AND [id number] 06:24:00 Test Item Value Reference Range Comments ANTICARDIOLIPIN IGG ANTIBODY (BEAKER) (test < GPL <20.0 ujbn=481) ANTICARDIOLIPIN IGM ANTIBODY (BEAKER) (test 0.2 MPL <20.0 cppe=807) Anticardiolipin IgG Result Interpretation: <20.0 GPL Normal>/=20.0 GPL PositiveAnticardiolipin IgM Result Interpretation: <20.0 MPL Normal>/= 20.0 MPL PositiveTHROMBIN [id number] 13:45:00 Test Item Value Reference Range Comments THROMBIN TIME (BEAKER) (test roan=043) 17.2 secs 13.8-20.0 [id number] 12:46:00 Test Item Value Reference Range Comments FIBRINOGEN LEVEL (BEAKER) (test rfpr=183) 762 mg/dl 225-434 [id number] 10:48:00 Test Item Value Reference Range Comments MAGNESIUM (BEAKER) (test wiic=318) 1.7 mg/dL 1.6-2.6 BASIC METABOLIC [id number] 10:48:00 Test Item Value Reference Range Comments SODIUM (BEAKER) (test 139 meq/L 136-145 xmiw=457) POTASSIUM (BEAKER) (test 4.2 meq/L 3.5-5.1 wfju=852) CHLORIDE (BEAKER) (test 102 meq/L 98-107 hbby=701) CO2 (BEAKER) (test 26 meq/L 22-29 oecn=029) BLOOD UREA NITROGEN 6 mg/dL 7-21 (BEAKER) (test bfjs=988) CREATININE (BEAKER) (test 0.75 mg/dL 0.57-1.25 jabb=684) GLUCOSE RANDOM (BEAKER) 160 mg/dL 70-105 (test aqzw=104) CALCIUM (BEAKER) (test 9.3 mg/dL 8.4-10.2 gmik=260) EGFR (BEAKER) (test 123 mL/min/1.73 sq m ESTIMATED GFR IS NOT rmpj=4868) ACCURATE CREATININE CLEARANCE IN PREDICTING GLOMERULAR FILTRATION RATE. ESTIMATED GFR IS NOT APPLICABLE FOR DIALYSIS PATIENTS. HEPATIC FUNCTION [id number] 10:48:00 Test Item Value Reference Range Comments TOTAL PROTEIN (BEAKER) (test lrml=680) 7.3 gm/dL 6.0-8.3 ALBUMIN (BEAKER) (test tvkm=6092) 3.0 g/dL 3.5-5.0 BILIRUBIN TOTAL (BEAKER) (test cirq=716) 0.7 mg/dL 0.2-1.2 BILIRUBIN DIRECT (BEAKER) (test jhoo=408) 0.5 mg/dL 0.1-0.5 ALKALINE PHOSPHATASE (BEAKER) (test kpht=363) 112 U/L 40-150 AST (SGOT) (BEAKER) (test wwqw=159) 47 U/L 5-34 ALT (SGPT) (BEAKER) (test wxwj=257) 50 U/L 6-55 PT/[id number] 06:40:00 Test Item Value Reference Range Comments PROTIME (BEAKER) (test cfqh=968) 18.8 seconds 11.7-14.7 INR (BEAKER) (test qpan=712) 1.7 <=5.9 PARTIAL THROMBOPLASTIN TIME (BEAKER) (test 52.3 seconds 22.5-36.0 stdy=391) RECOMMENDED COUMADIN/WARFARIN INR THERAPY RANGESSTANDARD DOSE: 2.0 - 3.0 Includes: PROPHYLAXIS forvenous thrombosis, systemic embolization; TREATMENT for venous thrombosis and/or pulmonary embolus.HIGH RISK: Target INR is 2.5-3.5 for patients with mechanical heart valves.PROTHROMBIN [id number] 06:39: 00 Test Item Value Reference Range Comments PROTIME (BEAKER) (test bhuj=930) 18.8 seconds 11.7-14.7 INR (BEAKER) (test momd=138) 1.7 <=5.9 RECOMMENDED COUMADIN/WARFARIN INR THERAPY RANGESSTANDARD DOSE: 2.0 - 3.0 Includes: PROPHYLAXIS forvenous thrombosis, systemic embolization; TREATMENT for venous thrombosis and/or pulmonary embolus.HIGH RISK: Target INR is 2.5-3.5 for patients with mechanical heart valves.CBC W/PLT COUNT & AUTO [id number] 06:34:00 Test Item Value Reference Range Comments WHITE BLOOD CELL COUNT (BEAKER) (test afjg=020) 9.3 K/ L 3.5-10.5 RED BLOOD CELL COUNT (BEAKER) (test bnqf=904) 3.78 M/ L 4.63-6.08 HEMOGLOBIN (BEAKER) (test oqno=060) 11.0 GM/DL 13.7-17.5 HEMATOCRIT (BEAKER) (test icdi=203) 35.0 % 40.1-51.0 MEAN CORPUSCULAR VOLUME (BEAKER) (test xgrj=262) 92.6 fL 79.0-92.2 MEAN CORPUSCULAR HEMOGLOBIN (BEAKER) (test 29.1 pg 25.7-32.2 uqbr=314) MEAN CORPUSCULAR HEMOGLOBIN CONC (BEAKER) (test 31.4 GM/DL 32.3-36.5 plyb=298) RED CELL DISTRIBUTION WIDTH (BEAKER) (test 13.5 % 11.6-14.4 mqfc=394) PLATELET COUNT (BEAKER) (test yalm=837) 517 K/CU MM 150-450 MEAN PLATELET VOLUME (BEAKER) (test qlsp=005) 10.5 fL 9.4-12.4 NUCLEATED RED BLOOD CELLS (BEAKER) (test 0 /100 WBC 0-0 ienr=817) NEUTROPHILS RELATIVE PERCENT (BEAKER) (test 64 % uppb=430) LYMPHOCYTES RELATIVE PERCENT (BEAKER) (test 20 % ebyi=531) MONOCYTES RELATIVE PERCENT (BEAKER) (test 9 % uttp=750) EOSINOPHILS RELATIVE PERCENT (BEAKER) (test 6 % wqeq=578) BASOPHILS RELATIVE PERCENT (BEAKER) (test 1 % nals=954) NEUTROPHILS ABSOLUTE COUNT (BEAKER) (test 5.90 K/ L 1.78-5.38 blsr=058) LYMPHOCYTES ABSOLUTE COUNT (BEAKER) (test 1.84 K/ L 1.32-3.57 pnsy=260) MONOCYTES ABSOLUTE COUNT (BEAKER) (test 0.82 K/ L 0.30-0.82 ladk=336) EOSINOPHILS ABSOLUTE COUNT (BEAKER) (test 0.53 K/ L 0.04-0.54 hsoo=911) BASOPHILS ABSOLUTE COUNT (BEAKER) (test 0.09 K/ L 0.01-0.08 jmno=176) IMMATURE GRANULOCYTES-RELATIVE PERCENT (BEAKER) 1 % 0-1 (test nuyv=7104) [id number] 06:48:00 Test Item Value Reference Range Comments MAGNESIUM (BEAKER) (test knht=979) 1.9 mg/dL 1.6-2.6 BASIC METABOLIC [id number] 06:48:00 Test Item Value Reference Range Comments SODIUM (BEAKER) (test 137 meq/L 136-145 winh=278) POTASSIUM (BEAKER) (test 4.0 meq/L 3.5-5.1 ydle=743) CHLORIDE (BEAKER) (test 102 meq/L 98-107 sowz=989) CO2 (BEAKER) (test 29 meq/L 22-29 nqcb=592) BLOOD UREA NITROGEN 6 mg/dL 7-21 (BEAKER) (test plil=190) CREATININE (BEAKER) (test 0.69 mg/dL 0.57-1.25 aqgj=198) GLUCOSE RANDOM (BEAKER) 116 mg/dL 70-105 (test erdy=836) CALCIUM (BEAKER) (test 8.7 mg/dL 8.4-10.2 yilo=305) EGFR (BEAKER) (test 136 mL/min/1.73 sq m ESTIMATED GFR IS NOT bdff=7646) ACCURATE CREATININE CLEARANCE IN PREDICTING GLOMERULAR FILTRATION RATE. ESTIMATED GFR IS NOT APPLICABLE FOR DIALYSIS PATIENTS. HEPATIC FUNCTION [id number] 06:48:00 Test Item Value Reference Range Comments TOTAL PROTEIN (BEAKER) (test ngov=971) 6.2 gm/dL 6.0-8.3 ALBUMIN (BEAKER) (test vumq=2597) 2.5 g/dL 3.5-5.0 BILIRUBIN TOTAL (BEAKER) (test jsvc=360) 0.6 mg/dL 0.2-1.2 BILIRUBIN DIRECT (BEAKER) (test ldlz=584) 0.5 mg/dL 0.1-0.5 ALKALINE PHOSPHATASE (BEAKER) (test bbjn=502) 102 U/L 40-150 AST (SGOT) (BEAKER) (test grwo=777) 48 U/L 5-34 ALT (SGPT) (BEAKER) (test xoeq=271) 50 U/L 6-55 [id number] 06:31:00 Test Item Value Reference Range Comments PROTIME (BEAKER) (test jbhy=994) 21.1 seconds 11.7-14.7 INR (BEAKER) (test empd=050) 1.9 <=5.9 PARTIAL THROMBOPLASTIN TIME (BEAKER) (test 58.0 seconds 22.5-36.0 otzt=592) RECOMMENDED COUMADIN/WARFARIN INR THERAPY RANGESSTANDARD DOSE: 2.0 - 3.0 Includes: PROPHYLAXIS forvenous thrombosis, systemic embolization; TREATMENT for venous thrombosis and/or pulmonary embolus.HIGH RISK: Target INR is 2.5-3.5 for patients with mechanical heart valves.PROTHROMBIN [id number] 06:30: 00 Test Item Value Reference Range Comments PROTIME (BEAKER) (test bkcu=696) 21.1 seconds 11.7-14.7 INR (BEAKER) (test mnwk=750) 1.9 <=5.9 RECOMMENDED COUMADIN/WARFARIN INR THERAPY RANGESSTANDARD DOSE: 2.0 - 3.0 Includes: PROPHYLAXIS forvenous thrombosis, systemic embolization; TREATMENT for venous thrombosis and/or pulmonary embolus.HIGH RISK: Target INR is 2.5-3.5 for patients with mechanical heart valves.CBC W/PLT COUNT & AUTO [id number] 06:11:00 Test Item Value Reference Range Comments WHITE BLOOD CELL COUNT (BEAKER) (test hzsv=601) 10.3 K/ L 3.5-10.5 RED BLOOD CELL COUNT (BEAKER) (test ifwh=387) 3.56 M/ L 4.63-6.08 HEMOGLOBIN (BEAKER) (test bqxc=626) 10.4 GM/DL 13.7-17.5 HEMATOCRIT (BEAKER) (test dvqb=983) 33.3 % 40.1-51.0 MEAN CORPUSCULAR VOLUME (BEAKER) (test ahoy=547) 93.5 fL 79.0-92.2 MEAN CORPUSCULAR HEMOGLOBIN (BEAKER) (test 29.2 pg 25.7-32.2 xuli=863) MEAN CORPUSCULAR HEMOGLOBIN CONC (BEAKER) (test 31.2 GM/DL 32.3-36.5 uogt=999) RED CELL DISTRIBUTION WIDTH (BEAKER) (test 13.7 % 11.6-14.4 jmtx=325) PLATELET COUNT (BEAKER) (test kmxk=973) 487 K/CU MM 150-450 MEAN PLATELET VOLUME (BEAKER) (test tott=145) 10.6 fL 9.4-12.4 NUCLEATED RED BLOOD CELLS (BEAKER) (test 0 /100 WBC 0-0 hksw=773) NEUTROPHILS RELATIVE PERCENT (BEAKER) (test 66 % rqsg=705) LYMPHOCYTES RELATIVE PERCENT (BEAKER) (test 18 % dtcr=714) MONOCYTES RELATIVE PERCENT (BEAKER) (test 10 % cufc=167) EOSINOPHILS RELATIVE PERCENT (BEAKER) (test 4 % uhtm=858) BASOPHILS RELATIVE PERCENT (BEAKER) (test 1 % jner=608) NEUTROPHILS ABSOLUTE COUNT (BEAKER) (test 6.87 K/ L 1.78-5.38 hagt=912) LYMPHOCYTES ABSOLUTE COUNT (BEAKER) (test 1.81 K/ L 1.32-3.57 hxno=914) MONOCYTES ABSOLUTE COUNT (BEAKER) (test 1.00 K/ L 0.30-0.82 bqse=554) EOSINOPHILS ABSOLUTE COUNT (BEAKER) (test 0.45 K/ L 0.04-0.54 ukdy=828) BASOPHILS ABSOLUTE COUNT (BEAKER) (test 0.06 K/ L 0.01-0.08 ecxu=820) IMMATURE GRANULOCYTES-RELATIVE PERCENT (BEAKER) 1 % 0-1 (test enym=4841) RAD, CHEST, 1 VIEW, NON [id number] 18:34:00Reason for exam:->SOBShould this be performed at [...] MDReport Verified Date/Time: 06/11/2018 18:34:14 Reading Location: [address] Consult Reading Room B-TYPE NATRIURETIC FACTOR (BNP)2018-06-11 15:45:00 Test Item Value Reference Range Comments B-TYPE NATRIURETIC PEPTIDE (BEAKER) (test vunc=930) < pg/mL 0-100 PT/[id number] 06:36:00 Test Item Value Reference Range Comments PROTIME (BEAKER) (test qaja=874) 21.5 seconds 11.7-14.7 INR (BEAKER) (test latd=270) 2.0 <=5.9 PARTIAL THROMBOPLASTIN TIME (BEAKER) (test 60.3 seconds 22.5-36.0 typi=490) RECOMMENDED COUMADIN/WARFARIN INR THERAPY RANGESSTANDARD DOSE: 2.0 - 3.0 Includes: PROPHYLAXIS forvenous thrombosis, systemic embolization; TREATMENT for venous thrombosis and/or pulmonary embolus.HIGH RISK: Target INR is 2.5-3.5 for patients with mechanical heart valves.PROTHROMBIN TIME/[id number] 06:35: 00 Test Item Value Reference Range Comments PROTIME (BEAKER) (test fnel=747) 21.5 seconds 11.7-14.7 INR (BEAKER) (test zlei=183) 2.0 <=5.9 RECOMMENDED COUMADIN/WARFARIN INR THERAPY RANGESSTANDARD DOSE: 2.0 - 3.0 Includes: PROPHYLAXIS forvenous thrombosis, systemic embolization; TREATMENT for venous thrombosis and/or pulmonary embolus.HIGH RISK: Target INR is 2.5-3.5 for patients with mechanical heart valves.[id number] 06:29:00 Test Item Value Reference Range Comments MAGNESIUM (BEAKER) (test 1.9 mg/dL 1.6-2.6 Specimen slightly hemolyzed qmrb=716) BASIC METABOLIC [id number] 06:29:00 Test Item Value Reference Range Comments SODIUM (BEAKER) (test 136 meq/L 136-145 xkna=549) POTASSIUM (BEAKER) (test 4.0 meq/L 3.5-5.1 Specimen slightly ffpe=743) hemolyzed CHLORIDE (BEAKER) (test 100 meq/L 98-107 cato=121) CO2 (BEAKER) (test 30 meq/L 22-29 vwkb=911) BLOOD UREA NITROGEN 6 mg/dL 7-21 (BEAKER) (test ddvx=055) CREATININE (BEAKER) (test 0.70 mg/dL 0.57-1.25 Specimen slightly eyym=124) hemolyzed GLUCOSE RANDOM (BEAKER) 114 mg/dL 70-105 (test qnfx=182) CALCIUM (BEAKER) (test 8.4 mg/dL 8.4-10.2 cnqc=607) EGFR (BEAKER) (test 133 mL/min/1.73 sq m ESTIMATED GFR IS NOT xzzx=6032) ACCURATE CREATININE CLEARANCE IN PREDICTING GLOMERULAR FILTRATION RATE. ESTIMATED GFR IS NOT APPLICABLE FOR DIALYSIS PATIENTS. HEPATIC FUNCTION [id number] 06:29:00 Test Item Value Reference Range Comments TOTAL PROTEIN (BEAKER) (test 6.2 gm/dL 6.0-8.3 Specimen slightly hemolyzed aeqn=565) ALBUMIN (BEAKER) (test 2.4 g/dL 3.5-5.0 Specimen slightly hemolyzed oabp=7884) BILIRUBIN TOTAL (BEAKER) (test 0.7 mg/dL 0.2-1.2 Specimen slightly hemolyzed apdr=068) BILIRUBIN DIRECT (BEAKER) (test 0.3 mg/dL 0.1-0.5 Specimen slightly hemolyzed vvwl=276) ALKALINE PHOSPHATASE (BEAKER) 105 U/L 40-150 (test ltcx=657) AST (SGOT) (BEAKER) (test 56 U/L 5-34 Specimen slightly hemolyzed qyst=035) ALT (SGPT) (BEAKER) (test 51 U/L 6-55 Specimen slightly hemolyzed vlsq=548) CBC W/PLT COUNT & AUTO [id number] 06:00:00 Test Item Value Reference Range Comments WHITE BLOOD CELL COUNT (BEAKER) (test dxow=338) 10.8 K/ L 3.5-10.5 RED BLOOD CELL COUNT (BEAKER) (test tyxw=258) 3.49 M/ L 4.63-6.08 HEMOGLOBIN (BEAKER) (test ekri=424) 10.4 GM/DL 13.7-17.5 HEMATOCRIT (BEAKER) (test lugf=652) 32.7 % 40.1-51.0 MEAN CORPUSCULAR VOLUME (BEAKER) (test cuth=599) 93.7 fL 79.0-92.2 MEAN CORPUSCULAR HEMOGLOBIN (BEAKER) (test 29.8 pg 25.7-32.2 cysb=512) MEAN CORPUSCULAR HEMOGLOBIN CONC (BEAKER) (test 31.8 GM/DL 32.3-36.5 jvbe=852) RED CELL DISTRIBUTION WIDTH (BEAKER) (test 14.0 % 11.6-14.4 gcjw=412) PLATELET COUNT (BEAKER) (test jghw=469) 497 K/CU MM 150-450 MEAN PLATELET VOLUME (BEAKER) (test cmgn=683) 10.7 fL 9.4-12.4 NUCLEATED RED BLOOD CELLS (BEAKER) (test 0 /100 WBC 0-0 yhsy=694) NEUTROPHILS RELATIVE PERCENT (BEAKER) (test 68 % idim=510) LYMPHOCYTES RELATIVE PERCENT (BEAKER) (test 17 % fwne=856) MONOCYTES RELATIVE PERCENT (BEAKER) (test 10 % dukd=716) EOSINOPHILS RELATIVE PERCENT (BEAKER) (test 3 % xirq=399) BASOPHILS RELATIVE PERCENT (BEAKER) (test 1 % jhgu=796) NEUTROPHILS ABSOLUTE COUNT (BEAKER) (test 7.27 K/ L 1.78-5.38 iuas=623) LYMPHOCYTES ABSOLUTE COUNT (BEAKER) (test 1.87 K/ L 1.32-3.57 ejsk=541) MONOCYTES ABSOLUTE COUNT (BEAKER) (test 1.04 K/ L 0.30-0.82 ujex=452) EOSINOPHILS ABSOLUTE COUNT (BEAKER) (test 0.37 K/ L 0.04-0.54 nnec=999) BASOPHILS ABSOLUTE COUNT (BEAKER) (test 0.07 K/ L 0.01-0.08 ipzq=612) IMMATURE GRANULOCYTES-RELATIVE PERCENT (BEAKER) 1 % 0-1 (test xvlj=1861) BODY FLUID CULTURE + GRAM [id number] 18:11:00 Test Item Value Reference Range Comments CULTURE (BEAKER) (test caan=0234) No growth GRAM STAIN RESULT (BEAKER) (test <1+ White blood cells seen jvrc=4371) GRAM STAIN RESULT (BEAKER) (test No organisms seen eofa=14453) [id number] 07:01:00 Test Item Value Reference Range Comments MAGNESIUM (BEAKER) (test ujyz=171) 1.9 mg/dL 1.6-2.6 BASIC METABOLIC [id number] 07:01:00 Test Item Value Reference Range Comments SODIUM (BEAKER) (test 138 meq/L 136-145 apnr=288) POTASSIUM (BEAKER) (test 3.8 meq/L 3.5-5.1 zjdt=114) CHLORIDE (BEAKER) (test 102 meq/L 98-107 hlsg=919) CO2 (BEAKER) (test 29 meq/L 22-29 jsuf=292) BLOOD UREA NITROGEN 7 mg/dL 7-21 (BEAKER) (test yqzg=883) CREATININE (BEAKER) (test 0.70 mg/dL 0.57-1.25 bjed=354) GLUCOSE RANDOM (BEAKER) 126 mg/dL 70-105 (test otfh=846) CALCIUM (BEAKER) (test 8.6 mg/dL 8.4-10.2 ddkd=049) EGFR (BEAKER) (test 133 mL/min/1.73 sq m ESTIMATED GFR IS NOT tunu=4215) ACCURATE CREATININE CLEARANCE IN PREDICTING GLOMERULAR FILTRATION RATE. ESTIMATED GFR IS NOT APPLICABLE FOR DIALYSIS PATIENTS. HEPATIC FUNCTION [id number] 07:01:00 Test Item Value Reference Range Comments TOTAL PROTEIN (BEAKER) (test hfum=165) 6.1 gm/dL 6.0-8.3 ALBUMIN (BEAKER) (test llvt=2395) 2.5 g/dL 3.5-5.0 BILIRUBIN TOTAL (BEAKER) (test hbcn=324) 0.7 mg/dL 0.2-1.2 BILIRUBIN DIRECT (BEAKER) (test kucp=940) 0.6 mg/dL 0.1-0.5 ALKALINE PHOSPHATASE (BEAKER) (test hfeh=400) 119 U/L 40-150 AST (SGOT) (BEAKER) (test tyao=562) 72 U/L 5-34 ALT (SGPT) (BEAKER) (test ardm=808) 66 U/L 6-55 [id number] 06:32:00 Test Item Value Reference Range Comments PROTIME (BEAKER) (test nqcg=220) 22.5 seconds 11.7-14.7 INR (BEAKER) (test dnre=916) 2.1 <=5.9 PARTIAL THROMBOPLASTIN TIME (BEAKER) (test 56.8 seconds 22.5-36.0 cxub=402) RECOMMENDED COUMADIN/WARFARIN INR THERAPY RANGESSTANDARD DOSE: 2.0 - 3.0 Includes: PROPHYLAXIS forvenous thrombosis, systemic embolization; TREATMENT for venous thrombosis and/or pulmonary embolus.HIGH RISK: Target INR is 2.5-3.5 for patients with mechanical heart valves.CBC W/PLT COUNT & AUTO [id number] 06:26:00 Test Item Value Reference Range Comments WHITE BLOOD CELL COUNT (BEAKER) (test tgux=183) 12.5 K/ L 3.5-10.5 RED BLOOD CELL COUNT (BEAKER) (test ruvc=213) 3.56 M/ L 4.63-6.08 HEMOGLOBIN (BEAKER) (test vzfj=187) 10.3 GM/DL 13.7-17.5 HEMATOCRIT (BEAKER) (test xjoy=595) 33.3 % 40.1-51.0 MEAN CORPUSCULAR VOLUME (BEAKER) (test rjsl=127) 93.5 fL 79.0-92.2 MEAN CORPUSCULAR HEMOGLOBIN (BEAKER) (test 28.9 pg 25.7-32.2 jllo=457) MEAN CORPUSCULAR HEMOGLOBIN CONC (BEAKER) (test 30.9 GM/DL 32.3-36.5 ulaa=068) RED CELL DISTRIBUTION WIDTH (BEAKER) (test 14.3 % 11.6-14.4 vkic=190) PLATELET COUNT (BEAKER) (test gubt=680) 470 K/CU MM 150-450 MEAN PLATELET VOLUME (BEAKER) (test uzic=226) 10.8 fL 9.4-12.4 NUCLEATED RED BLOOD CELLS (BEAKER) (test 0 /100 WBC 0-0 jwmf=991) NEUTROPHILS RELATIVE PERCENT (BEAKER) (test 71 % rdki=578) LYMPHOCYTES RELATIVE PERCENT (BEAKER) (test 13 % ijbi=471) MONOCYTES RELATIVE PERCENT (BEAKER) (test 10 % evvk=830) EOSINOPHILS RELATIVE PERCENT (BEAKER) (test 4 % xqnx=134) BASOPHILS RELATIVE PERCENT (BEAKER) (test 1 % qsww=309) NEUTROPHILS ABSOLUTE COUNT (BEAKER) (test 8.89 K/ L 1.78-5.38 lvpc=648) LYMPHOCYTES ABSOLUTE COUNT (BEAKER) (test 1.64 K/ L 1.32-3.57 bnef=781) MONOCYTES ABSOLUTE COUNT (BEAKER) (test 1.24 K/ L 0.30-0.82 mzub=288) EOSINOPHILS ABSOLUTE COUNT (BEAKER) (test 0.46 K/ L 0.04-0.54 hjjz=502) BASOPHILS ABSOLUTE COUNT (BEAKER) (test 0.06 K/ L 0.01-0.08 gzap=891) IMMATURE GRANULOCYTES-RELATIVE PERCENT (BEAKER) 1 % 0-1 (test pojh=7040) BLOOD [id number] 22:01:00 Test Item Value Reference Range Comments CULTURE (BEAKER) (test qgux=9968) No growth in 5 days BLOOD [id number] 22:01:00 Test Item Value Reference Range Comments CULTURE (BEAKER) (test gwoe=3175) No growth in 5 days [id number] 07:20:00 Test Item Value Reference Range Comments PROTIME (BEAKER) (test qcbr=059) 21.3 seconds 11.7-14.7 INR (BEAKER) (test knrb=093) 2.0 <=5.9 PARTIAL THROMBOPLASTIN TIME (BEAKER) (test 50.7 seconds 22.5-36.0 calf=916) RECOMMENDED COUMADIN/WARFARIN INR THERAPY RANGESSTANDARD DOSE: 2.0 - 3.0 Includes: PROPHYLAXIS forvenous thrombosis, systemic embolization; TREATMENT for venous thrombosis and/or pulmonary embolus.HIGH RISK: Target INR is 2.5-3.5 for patients with mechanical heart valves.CBC W/PLT COUNT & AUTO [id number] 07:09:00 Test Item Value Reference Range Comments WHITE BLOOD CELL COUNT (BEAKER) (test wzsw=540) 13.7 K/ L 3.5-10.5 RED BLOOD CELL COUNT (BEAKER) (test ecse=493) 3.79 M/ L 4.63-6.08 HEMOGLOBIN (BEAKER) (test ohtt=917) 11.0 GM/DL 13.7-17.5 HEMATOCRIT (BEAKER) (test qwjp=598) 35.6 % 40.1-51.0 MEAN CORPUSCULAR VOLUME (BEAKER) (test ikdr=607) 93.9 fL 79.0-92.2 MEAN CORPUSCULAR HEMOGLOBIN (BEAKER) (test 29.0 pg 25.7-32.2 jplc=489) MEAN CORPUSCULAR HEMOGLOBIN CONC (BEAKER) (test 30.9 GM/DL 32.3-36.5 xkwp=185) RED CELL DISTRIBUTION WIDTH (BEAKER) (test 14.6 % 11.6-14.4 yubj=754) PLATELET COUNT (BEAKER) (test kquc=154) 450 K/CU MM 150-450 MEAN PLATELET VOLUME (BEAKER) (test jqgp=461) 10.7 fL 9.4-12.4 NUCLEATED RED BLOOD CELLS (BEAKER) (test 0 /100 WBC 0-0 idby=881) NEUTROPHILS RELATIVE PERCENT (BEAKER) (test 74 % vaag=667) LYMPHOCYTES RELATIVE PERCENT (BEAKER) (test 12 % gvdj=551) MONOCYTES RELATIVE PERCENT (BEAKER) (test 10 % zzue=528) EOSINOPHILS RELATIVE PERCENT (BEAKER) (test 3 % ucud=119) BASOPHILS RELATIVE PERCENT (BEAKER) (test 1 % fhhn=260) NEUTROPHILS ABSOLUTE COUNT (BEAKER) (test 10.10 K/ L 1.78-5.38 ssms=184) LYMPHOCYTES ABSOLUTE COUNT (BEAKER) (test 1.64 K/ L 1.32-3.57 vinj=715) MONOCYTES ABSOLUTE COUNT (BEAKER) (test 1.34 K/ L 0.30-0.82 ehog=473) EOSINOPHILS ABSOLUTE COUNT (BEAKER) (test 0.40 K/ L 0.04-0.54 ynpd=964) BASOPHILS ABSOLUTE COUNT (BEAKER) (test 0.07 K/ L 0.01-0.08 rcth=249) IMMATURE GRANULOCYTES-RELATIVE PERCENT (BEAKER) 1 % 0-1 (test yofi=3586) [id number] 07:08:00 Test Item Value Reference Range Comments MAGNESIUM (BEAKER) (test vgvn=416) 2.1 mg/dL 1.6-2.6 BASIC METABOLIC [id number] 07:08:00 Test Item Value Reference Range Comments SODIUM (BEAKER) (test 140 meq/L 136-145 pabf=484) POTASSIUM (BEAKER) (test 4.0 meq/L 3.5-5.1 fikr=642) CHLORIDE (BEAKER) (test 102 meq/L 98-107 tczs=483) CO2 (BEAKER) (test 29 meq/L 22-29 aday=774) BLOOD UREA NITROGEN 8 mg/dL 7-21 (BEAKER) (test srst=938) CREATININE (BEAKER) (test 0.72 mg/dL 0.57-1.25 wyss=582) GLUCOSE RANDOM (BEAKER) 109 mg/dL 70-105 (test vijb=567) CALCIUM (BEAKER) (test 8.7 mg/dL 8.4-10.2 vugf=313) EGFR (BEAKER) (test 129 mL/min/1.73 sq m ESTIMATED GFR IS NOT foxe=6137) ACCURATE CREATININE CLEARANCE IN PREDICTING GLOMERULAR FILTRATION RATE. ESTIMATED GFR IS NOT APPLICABLE FOR DIALYSIS PATIENTS. HEPATIC FUNCTION [id number] 07:08:00 Test Item Value Reference Range Comments TOTAL PROTEIN (BEAKER) (test nlrw=523) 6.5 gm/dL 6.0-8.3 ALBUMIN (BEAKER) (test yyxv=4146) 2.6 g/dL 3.5-5.0 BILIRUBIN TOTAL (BEAKER) (test ixjv=722) 0.9 mg/dL 0.2-1.2 BILIRUBIN DIRECT (BEAKER) (test zbay=453) 0.7 mg/dL 0.1-0.5 ALKALINE PHOSPHATASE (BEAKER) (test bdgj=199) 133 U/L 40-150 AST (SGOT) (BEAKER) (test tehv=240) 87 U/L 5-34 ALT (SGPT) (BEAKER) (test huvr=780) 69 U/L 6-55 PROTHROMBIN [id number] 06:54:00 Test Item Value Reference Range Comments PROTIME (BEAKER) (test hset=252) 21.3 seconds 11.7-14.7 INR (BEAKER) (test ywos=385) 2.0 <=5.9 RECOMMENDED COUMADIN/WARFARIN INR THERAPY RANGESSTANDARD DOSE: 2.0 - 3.0 Includes: PROPHYLAXIS forvenous thrombosis, systemic embolization; TREATMENT for venous thrombosis and/or pulmonary embolus.HIGH RISK: Target INR is 2.5-3.5 for patients with mechanical heart valves.[id number] 06:24:00 Test Item Value Reference Range Comments MAGNESIUM (BEAKER) (test tjvx=719) 2.0 mg/dL 1.6-2.6 BASIC METABOLIC [id number] 06:24:00 Test Item Value Reference Range Comments SODIUM (BEAKER) (test 139 meq/L 136-145 ynwg=409) POTASSIUM (BEAKER) (test 3.7 meq/L 3.5-5.1 rjcx=005) CHLORIDE (BEAKER) (test 103 meq/L 98-107 ijkd=333) CO2 (BEAKER) (test 27 meq/L 22-29 naac=297) BLOOD UREA NITROGEN 8 mg/dL 7-21 (BEAKER) (test aboo=849) CREATININE (BEAKER) (test 0.68 mg/dL 0.57-1.25 uidk=146) GLUCOSE RANDOM (BEAKER) 133 mg/dL 70-105 (test oorb=933) CALCIUM (BEAKER) (test 8.4 mg/dL 8.4-10.2 dwpa=064) EGFR (BEAKER) (test 138 mL/min/1.73 sq m ESTIMATED GFR IS NOT msol=4304) ACCURATE CREATININE CLEARANCE IN PREDICTING GLOMERULAR FILTRATION RATE. ESTIMATED GFR IS NOT APPLICABLE FOR DIALYSIS PATIENTS. HEPATIC FUNCTION [id number] 06:24:00 Test Item Value Reference Range Comments TOTAL PROTEIN (BEAKER) (test iyfb=073) 6.1 gm/dL 6.0-8.3 ALBUMIN (BEAKER) (test lhiu=5473) 2.5 g/dL 3.5-5.0 BILIRUBIN TOTAL (BEAKER) (test rzht=758) 1.0 mg/dL 0.2-1.2 BILIRUBIN DIRECT (BEAKER) (test iqxq=734) 0.8 mg/dL 0.1-0.5 ALKALINE PHOSPHATASE (BEAKER) (test vtix=430) 130 U/L 40-150 AST (SGOT) (BEAKER) (test uour=448) 71 U/L 5-34 ALT (SGPT) (BEAKER) (test ngqh=148) 56 U/L 6-55 CBC W/PLT COUNT & AUTO [id number] 06:17:00 Test Item Value Reference Range Comments WHITE BLOOD CELL COUNT (BEAKER) (test srcp=989) 17.6 K/ L 3.5-10.5 RED BLOOD CELL COUNT (BEAKER) (test dqau=939) 3.67 M/ L 4.63-6.08 HEMOGLOBIN (BEAKER) (test bqxo=681) 10.7 GM/DL 13.7-17.5 HEMATOCRIT (BEAKER) (test fuvp=184) 34.1 % 40.1-51.0 MEAN CORPUSCULAR VOLUME (BEAKER) (test sxrf=123) 92.9 fL 79.0-92.2 MEAN CORPUSCULAR HEMOGLOBIN (BEAKER) (test 29.2 pg 25.7-32.2 ammq=941) MEAN CORPUSCULAR HEMOGLOBIN CONC (BEAKER) (test 31.4 GM/DL 32.3-36.5 jssw=467) RED CELL DISTRIBUTION WIDTH (BEAKER) (test 14.6 % 11.6-14.4 ujfq=120) PLATELET COUNT (BEAKER) (test yjtm=567) 395 K/CU MM 150-450 MEAN PLATELET VOLUME (BEAKER) (test iyjx=287) 10.6 fL 9.4-12.4 NUCLEATED RED BLOOD CELLS (BEAKER) (test 0 /100 WBC 0-0 ffgv=552) NEUTROPHILS RELATIVE PERCENT (BEAKER) (test 79 % adse=147) LYMPHOCYTES RELATIVE PERCENT (BEAKER) (test 8 % ubrw=060) MONOCYTES RELATIVE PERCENT (BEAKER) (test 9 % aesl=210) EOSINOPHILS RELATIVE PERCENT (BEAKER) (test 2 % xjwi=380) BASOPHILS RELATIVE PERCENT (BEAKER) (test 0 % wbks=884) NEUTROPHILS ABSOLUTE COUNT (BEAKER) (test 13.89 K/ L 1.78-5.38 llln=492) LYMPHOCYTES ABSOLUTE COUNT (BEAKER) (test 1.41 K/ L 1.32-3.57 pclg=040) MONOCYTES ABSOLUTE COUNT (BEAKER) (test 1.58 K/ L 0.30-0.82 woaz=240) EOSINOPHILS ABSOLUTE COUNT (BEAKER) (test 0.41 K/ L 0.04-0.54 xtxp=581) BASOPHILS ABSOLUTE COUNT (BEAKER) (test 0.06 K/ L 0.01-0.08 stxy=732) IMMATURE GRANULOCYTES-RELATIVE PERCENT (BEAKER) 1 % 0-1 (test qwlp=5396) PROTHROMBIN [id number] 05:39:00 Test Item Value Reference Range Comments PROTIME (BEAKER) (test mvav=292) 22.4 seconds 11.7-14.7 INR (BEAKER) (test sdxm=136) 2.1 <=5.9 RECOMMENDED COUMADIN/WARFARIN INR THERAPY RANGESSTANDARD DOSE: 2.0 - 3.0 Includes: PROPHYLAXIS forvenous thrombosis, systemic embolization; TREATMENT for venous thrombosis and/or pulmonary embolus.HIGH RISK: Target INR is 2.5-3.5 for patients with mechanical heart valves.PT/[id number] 05:39:00 Test Item Value Reference Range Comments PROTIME (BEAKER) (test pzpu=543) 22.4 seconds 11.7-14.7 INR (BEAKER) (test jior=810) 2.1 <=5.9 PARTIAL THROMBOPLASTIN TIME (BEAKER) (test 48.4 seconds 22.5-36.0 tkof=000) RECOMMENDED COUMADIN/WARFARIN INR THERAPY RANGESSTANDARD DOSE: 2.0 - 3.0 Includes: PROPHYLAXIS forvenous thrombosis, systemic embolization; TREATMENT for venous thrombosis and/or pulmonary embolus.HIGH RISK: Target INR is 2.5-3.5 for patients with mechanical heart valves.VANCOMYCIN LEVEL, [id number] 05: 28:00 Test Item Value Reference Range Comments VANCOMYCIN TROUGH (BEAKER) (test mjzv=997) 14.0 ug/mL 10.0-20.0 RAD, CHEST, 1 VIEW, NON [id number] 16:09:00Reason for exam:->feverShould this be performed at [...] Verified Date/Time : 06/07/2018 16:09:31 Reading Location: [facility] Women INCUBATED 1:1 MIXING [id number] 16:01:00 Test Item Value Reference Range Comments IMMEDIATE PT (BEAKER) (test 22.5 seconds 11.7-14.7 yzto=8005) IMMEDIATE PTT (BEAKER) (test 54.8 seconds 22.5-36.0 pkvw=9978) IMMEDIATE 1:1 MIX PT (BEAKER) 14.1 seconds 11.7-14.7 (test vxzm=[id number]) IMMEDIATE 1:1 MIX PTT (BEAKER) 40.9 seconds 22.5-36.0 (test uynn=[id number]) 1:1 MIX, 1 HOUR INC PT (BEAKER) 14.9 seconds (test rppp=8245) 1:1 MIX, 1 HOUR INC PTT (BEAKER) 43.6 seconds (test uism=6702) MIXING STUDY PATHOLOGIST Prolonged PT and PTT with INTERPRETATION (BEAKER) (test complete correction of PT znea=[id number]) and incomplete correction of PTT, 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 [id number] (BEAKER) Sade Mccormack MD (test zvze=7164) (electronic signature) URINALYSIS W/ REFLEX URINE [id number] 14:23:00 Test Item Value Reference Range Comments COLOR (BEAKER) (test ulsq=840) Yellow CLARITY (BEAKER) (test rvzf=802) Clear SPECIFIC GRAVITY UA (BEAKER) (test djat=401) 1.012 1.001-1.035 PH UA (BEAKER) (test uufd=887) 6.5 5.0-8.0 PROTEIN UA (BEAKER) (test jkjz=931) 20 mg/dL Negative GLUCOSE UA (BEAKER) (test hrvn=626) Negative Negative KETONES UA (BEAKER) (test xcte=738) 40 mg/dL Negative BILIRUBIN UA (BEAKER) (test nqcz=798) Negative Negative BLOOD UA (BEAKER) (test mpkt=909) Trace Negative NITRITE UA (BEAKER) (test dpwe=745) Negative Negative LEUKOCYTE ESTERASE UA (BEAKER) (test zzyc=080) Negative Negative UROBILINOGEN UA (BEAKER) (test fvsp=403) 0.2 mg/dL 0.2-1.0 RBC UA (BEAKER) (test ekqg=941) 2 /HPF WBC UA (BEAKER) (test hqfn=394) 3 /HPF MUCUS (BEAKER) (test jypp=1610) Rare SOURCE(BEAKER) (test kunt=6319) [id number] 04:19:00 Test Item Value Reference Range Comments PROTIME (BEAKER) (test kqtl=173) 22.3 seconds 11.7-14.7 INR (BEAKER) (test hkmb=324) 2.1 <=5.9 PARTIAL THROMBOPLASTIN TIME (BEAKER) (test 51.1 seconds 22.5-36.0 ssoi=267) RECOMMENDED COUMADIN/WARFARIN INR THERAPY RANGESSTANDARD DOSE: 2.0 - 3.0 Includes: PROPHYLAXIS forvenous thrombosis, systemic embolization; TREATMENT for venous thrombosis and/or pulmonary embolus.HIGH RISK: Target INR is 2.5-3.5 for patients with mechanical heart valves.PROTHROMBIN [id number] 04:18: 00 Test Item Value Reference Range Comments PROTIME (BEAKER) (test twwo=305) 22.3 seconds 11.7-14.7 INR (BEAKER) (test fnva=691) 2.1 <=5.9 RECOMMENDED COUMADIN/WARFARIN INR THERAPY RANGESSTANDARD DOSE: 2.0 - 3.0 Includes: PROPHYLAXIS forvenous thrombosis, systemic embolization; TREATMENT for venous thrombosis and/or pulmonary embolus.HIGH RISK: Target INR is 2.5-3.5 for patients with mechanical heart valves.[id number] 04:08:00 Test Item Value Reference Range Comments MAGNESIUM (BEAKER) (test lplz=167) 1.8 mg/dL 1.6-2.6 BASIC METABOLIC [id number] 04:08:00 Test Item Value Reference Range Comments SODIUM (BEAKER) (test 139 meq/L 136-145 tadt=675) POTASSIUM (BEAKER) (test 3.7 meq/L 3.5-5.1 jwlv=713) CHLORIDE (BEAKER) (test 103 meq/L 98-107 hneu=006) CO2 (BEAKER) (test 27 meq/L 22-29 nbyn=807) BLOOD UREA NITROGEN 9 mg/dL 7-21 (BEAKER) (test pzly=013) CREATININE (BEAKER) (test 0.69 mg/dL 0.57-1.25 emhx=140) GLUCOSE RANDOM (BEAKER) 134 mg/dL 70-105 (test bosj=921) CALCIUM (BEAKER) (test 8.5 mg/dL 8.4-10.2 xapk=599) EGFR (BEAKER) (test 136 mL/min/1.73 sq m ESTIMATED GFR IS NOT ttug=5722) ACCURATE CREATININE CLEARANCE IN PREDICTING GLOMERULAR FILTRATION RATE. ESTIMATED GFR IS NOT APPLICABLE FOR DIALYSIS PATIENTS. HEPATIC FUNCTION [id number] 04:08:00 Test Item Value Reference Range Comments TOTAL PROTEIN (BEAKER) (test fmkm=807) 6.2 gm/dL 6.0-8.3 ALBUMIN (BEAKER) (test xjps=2085) 2.6 g/dL 3.5-5.0 BILIRUBIN TOTAL (BEAKER) (test huhm=645) 1.2 mg/dL 0.2-1.2 BILIRUBIN DIRECT (BEAKER) (test lifx=840) 1.0 mg/dL 0.1-0.5 ALKALINE PHOSPHATASE (BEAKER) (test gteb=850) 140 U/L 40-150 AST (SGOT) (BEAKER) (test wntk=174) 72 U/L 5-34 ALT (SGPT) (BEAKER) (test ptfo=698) 59 U/L 6-55 CBC W/PLT COUNT & AUTO [id number] 03:56:00 Test Item Value Reference Range Comments WHITE BLOOD CELL COUNT (BEAKER) (test lvpa=246) 20.1 K/ L 3.5-10.5 RED BLOOD CELL COUNT (BEAKER) (test nece=986) 3.70 M/ L 4.63-6.08 HEMOGLOBIN (BEAKER) (test gqnf=621) 11.1 GM/DL 13.7-17.5 HEMATOCRIT (BEAKER) (test ytor=894) 33.8 % 40.1-51.0 MEAN CORPUSCULAR VOLUME (BEAKER) (test izkj=701) 91.4 fL 79.0-92.2 MEAN CORPUSCULAR HEMOGLOBIN (BEAKER) (test 30.0 pg 25.7-32.2 lqgf=889) MEAN CORPUSCULAR HEMOGLOBIN CONC (BEAKER) (test 32.8 GM/DL 32.3-36.5 pkfv=291) RED CELL DISTRIBUTION WIDTH (BEAKER) (test 14.6 % 11.6-14.4 xclb=788) PLATELET COUNT (BEAKER) (test dyby=525) 416 K/CU MM 150-450 MEAN PLATELET VOLUME (BEAKER) (test obcu=304) 10.6 fL 9.4-12.4 NUCLEATED RED BLOOD CELLS (BEAKER) (test 0 /100 WBC 0-0 fabi=578) NEUTROPHILS RELATIVE PERCENT (BEAKER) (test 80 % fwdr=207) LYMPHOCYTES RELATIVE PERCENT (BEAKER) (test 8 % ympj=403) MONOCYTES RELATIVE PERCENT (BEAKER) (test 8 % emos=160) EOSINOPHILS RELATIVE PERCENT (BEAKER) (test 2 % zqiq=134) BASOPHILS RELATIVE PERCENT (BEAKER) (test 0 % fthh=038) NEUTROPHILS ABSOLUTE COUNT (BEAKER) (test 16.05 K/ L 1.78-5.38 wzje=152) LYMPHOCYTES ABSOLUTE COUNT (BEAKER) (test 1.64 K/ L 1.32-3.57 vvvx=050) MONOCYTES ABSOLUTE COUNT (BEAKER) (test 1.65 K/ L 0.30-0.82 gihf=788) EOSINOPHILS ABSOLUTE COUNT (BEAKER) (test 0.30 K/ L 0.04-0.54 ymcv=797) BASOPHILS ABSOLUTE COUNT (BEAKER) (test 0.05 K/ L 0.01-0.08 mhed=704) IMMATURE GRANULOCYTES-RELATIVE PERCENT (BEAKER) 2 % 0-1 (test xuov=6106) HAILEY, [id number] 18:30:00Reason for exam:->stonesPROCEDURE PERFORMED IN O.R. - PLEASE REFER TO THE INTRAOPERATIVE REPORT. CT, DRAINAGE, [id number] 18:06:00Reason for exam:->drainage of pancreatic fluid collection; concern for infection given ongoing fevers, WBC 24kFINAL REPORT INDICATION:28-year-old male with acute pancreatitis and acute necrotic collection. Request for percutaneous image guided drainage catheter placement. COMPARISON:June 05, 2018 TECHNIQUE:CT-guided placement of 10 Dominican drainage catheter in left upper quadrant peripancreatic [...] and the introducer needle removed. An 8 Dominican and then 10 Dominican dilator were used. Then, a 10 Dominican multisidehole drainage catheter was placed over the [...] 45 minutes. IMPRESSION: CT-guided placement of 10 Dominican drainage catheter in left upper quadrant peripancreatic collection. Thin dark fluid was encountered. Signed: Leo Felton MDReport Verified Date/Time: 06/06/2018 18:06:54 Reading Location: [facility] B1 C013Y CT Body Reading Room C. [facility] [id number] 10:12:00 Test Item Value Reference Range Comments CDT TOXIN (test Negative Negative shkk=[id number]) CDT GDH ANTIGEN (test Negative Negative No indication of Clostridium vyet=[id number]) difficile infection and no colonization. Discontinue enteric isolation and therapy. Testing performed by [employer] Rapid Cassette Assay. For GDH, published sensitivity of the assay is 98.7% compared to cytotoxicity testing. For Toxin AB, published sensitivity is 87.8% and specificity 99.4% compared to cytotoxicity testing.Verification of kit performance was done by the [facility] Microbiology Lab prior to clinical use.VANCOMYCIN LEVEL, [id number] 04:02: 00 Test Item Value Reference Range Comments VANCOMYCIN TROUGH (BEAKER) (test spam=756) 9.9 ug/mL 10.0-20.0 [id number] 02:24:00 Test Item Value Reference Range Comments MAGNESIUM (BEAKER) (test dwga=120) 1.8 mg/dL 1.6-2.6 BASIC METABOLIC [id number] 02:24:00 Test Item Value Reference Range Comments SODIUM (BEAKER) (test 139 meq/L 136-145 fhlh=780) POTASSIUM (BEAKER) (test 3.6 meq/L 3.5-5.1 iwnp=325) CHLORIDE (BEAKER) (test 104 meq/L 98-107 hyjl=053) CO2 (BEAKER) (test 28 meq/L 22-29 auhx=228) BLOOD UREA NITROGEN 9 mg/dL 7-21 (BEAKER) (test kitl=225) CREATININE (BEAKER) (test 0.73 mg/dL 0.57-1.25 yaov=075) GLUCOSE RANDOM (BEAKER) 126 mg/dL 70-105 (test kqim=896) CALCIUM (BEAKER) (test 8.4 mg/dL 8.4-10.2 lylg=967) EGFR (BEAKER) (test 127 mL/min/1.73 sq m ESTIMATED GFR IS NOT uvcl=7429) ACCURATE CREATININE CLEARANCE IN PREDICTING GLOMERULAR FILTRATION RATE. ESTIMATED GFR IS NOT APPLICABLE FOR DIALYSIS PATIENTS. HEPATIC FUNCTION [id number] 02:24:00 Test Item Value Reference Range Comments TOTAL PROTEIN (BEAKER) (test yagh=085) 6.2 gm/dL 6.0-8.3 ALBUMIN (BEAKER) (test utmx=3468) 2.6 g/dL 3.5-5.0 BILIRUBIN TOTAL (BEAKER) (test awuu=776) 1.7 mg/dL 0.2-1.2 BILIRUBIN DIRECT (BEAKER) (test bwmt=547) 1.2 mg/dL 0.1-0.5 ALKALINE PHOSPHATASE (BEAKER) (test xxgp=736) 133 U/L 40-150 AST (SGOT) (BEAKER) (test lsiz=968) 89 U/L 5-34 ALT (SGPT) (BEAKER) (test ylbi=185) 60 U/L 6-55 [id number] 02:12:00 Test Item Value Reference Range Comments PROTIME (BEAKER) (test zggr=476) 20.9 seconds 11.7-14.7 INR (BEAKER) (test lbyv=060) 1.9 <=5.9 PARTIAL THROMBOPLASTIN TIME (BEAKER) (test 48.9 seconds 22.5-36.0 dhva=266) RECOMMENDED COUMADIN/WARFARIN INR THERAPY RANGESSTANDARD DOSE: 2.0 - 3.0 Includes: PROPHYLAXIS forvenous thrombosis, systemic embolization; TREATMENT for venous thrombosis and/or pulmonary embolus.HIGH RISK: Target INR is 2.5-3.5 for patients with mechanical heart valves.PROTHROMBIN [id number] 02:11: 00 Test Item Value Reference Range Comments PROTIME (BEAKER) (test fgci=662) 20.9 seconds 11.7-14.7 INR (BEAKER) (test ruvx=649) 1.9 <=5.9 RECOMMENDED COUMADIN/WARFARIN INR THERAPY RANGESSTANDARD DOSE: 2.0 - 3.0 Includes: PROPHYLAXIS forvenous thrombosis, systemic embolization; TREATMENT for venous thrombosis and/or pulmonary embolus.HIGH RISK: Target INR is 2.5-3.5 for patients with mechanical heart valves.CBC W/PLT COUNT & AUTO [id number] 02:00:00 Test Item Value Reference Range Comments WHITE BLOOD CELL COUNT (BEAKER) (test rzlc=296) 24.9 K/ L 3.5-10.5 RED BLOOD CELL COUNT (BEAKER) (test kglb=894) 3.67 M/ L 4.63-6.08 HEMOGLOBIN (BEAKER) (test eivt=546) 11.0 GM/DL 13.7-17.5 HEMATOCRIT (BEAKER) (test nqbv=860) 34.0 % 40.1-51.0 MEAN CORPUSCULAR VOLUME (BEAKER) (test aeag=640) 92.6 fL 79.0-92.2 MEAN CORPUSCULAR HEMOGLOBIN (BEAKER) (test 30.0 pg 25.7-32.2 fgei=087) MEAN CORPUSCULAR HEMOGLOBIN CONC (BEAKER) (test 32.4 GM/DL 32.3-36.5 krjk=124) RED CELL DISTRIBUTION WIDTH (BEAKER) (test 14.8 % 11.6-14.4 nmhg=677) PLATELET COUNT (BEAKER) (test sjqb=371) 366 K/CU MM 150-450 MEAN PLATELET VOLUME (BEAKER) (test ezue=371) 10.5 fL 9.4-12.4 NUCLEATED RED BLOOD CELLS (BEAKER) (test 0 /100 WBC 0-0 hsei=823) NEUTROPHILS RELATIVE PERCENT (BEAKER) (test 81 % sfix=873) LYMPHOCYTES RELATIVE PERCENT (BEAKER) (test 7 % ozna=970) MONOCYTES RELATIVE PERCENT (BEAKER) (test 8 % ilfh=661) EOSINOPHILS RELATIVE PERCENT (BEAKER) (test 2 % gcup=558) BASOPHILS RELATIVE PERCENT (BEAKER) (test 0 % feva=324) NEUTROPHILS ABSOLUTE COUNT (BEAKER) (test 20.12 K/ L 1.78-5.38 uwsn=399) LYMPHOCYTES ABSOLUTE COUNT (BEAKER) (test 1.67 K/ L 1.32-3.57 xtfn=856) MONOCYTES ABSOLUTE COUNT (BEAKER) (test 1.96 K/ L 0.30-0.82 otyh=820) EOSINOPHILS ABSOLUTE COUNT (BEAKER) (test 0.49 K/ L 0.04-0.54 klgq=028) BASOPHILS ABSOLUTE COUNT (BEAKER) (test 0.09 K/ L 0.01-0.08 upse=095) IMMATURE GRANULOCYTES-RELATIVE PERCENT (BEAKER) 2 % 0-1 (test xccj=9237) [id number] 16:33:00 Test Item Value Reference Range Comments FIBRINOGEN LEVEL (BEAKER) (test eysm=649) 852 mg/dl 225-434 CT, [id number] 12:46:00FINAL REPORT CT abdomen and pelvis with [...] evidence of biliary dilation. Signed: Keegan Lee MDReport Verified Date/Time: 06/05/2018 12:46:00 Reading Location: [facility] Diagnostic Imaging Reading Room - [place] [id number] CBC W/PLT COUNT & AUTO [id number] 10:12:00 Test Item Value Reference Range Comments WHITE BLOOD CELL COUNT (BEAKER) (test fdjz=664) 24.1 K/ L 3.5-10.5 RED BLOOD CELL COUNT (BEAKER) (test vtlb=909) 3.89 M/ L 4.63-6.08 HEMOGLOBIN (BEAKER) (test ehsy=552) 11.5 GM/DL 13.7-17.5 HEMATOCRIT (BEAKER) (test fnlt=836) 35.5 % 40.1-51.0 MEAN CORPUSCULAR VOLUME (BEAKER) (test meot=610) 91.3 fL 79.0-92.2 MEAN CORPUSCULAR HEMOGLOBIN (BEAKER) (test 29.6 pg 25.7-32.2 gdry=369) MEAN CORPUSCULAR HEMOGLOBIN CONC (BEAKER) (test 32.4 GM/DL 32.3-36.5 uwgb=436) RED CELL DISTRIBUTION WIDTH (BEAKER) (test 14.6 % 11.6-14.4 ecbl=255) PLATELET COUNT (BEAKER) (test hxoj=128) 355 K/CU MM 150-450 MEAN PLATELET VOLUME (BEAKER) (test ajjx=043) 10.8 fL 9.4-12.4 NUCLEATED RED BLOOD CELLS (BEAKER) (test 0 /100 WBC 0-0 izjt=945) (CELLAVISION MANUAL DIFF)[id number] 10:12:00 Test Item Value Reference Range Comments NEUTROPHILS - REL (CELLAVISION)(BEAKER) (test 75 % olwf=9152) LYMPHOCYTES - REL (CELLAVISION)(BEAKER) (test 11 % pmhx=0218) MONOCYTES - REL (CELLAVISION)(BEAKER) (test 9 % jzqh=9413) EOSINOPHILS - REL (CELLAVISION)(BEAKER) (test 5 % cgsh=8828) NEUTROPHILS - ABS (CELLAVISION)(BEAKER) (test 18.08 K/ul 1.78-5.38 xfjh=3522) LYMPHOCYTES - ABS (CELLAVISION)(BEAKER) (test 2.65 K/ul 1.32-3.57 butu=6344) MONOCYTES - ABS (CELLAVISION)(BEAKER) (test 2.17 K/uL 0.30-0.82 phpu=9253) EOSINOPHILS - ABS (CELLAVISION)(BEAKER) (test 1.21 K/uL 0.04-0.54 ubau=4780) TOTAL COUNTED (BEAKER) (test klrh=0588) 100 RBC MORPHOLOGY (BEAKER) (test noex=745) Normal WBC MORPHOLOGY (BEAKER) (test dufw=554) Normal PLT MORPHOLOGY (BEAKER) (test ynip=225) Normal ARTIFACT (CELLAVISION)(BEAKER) (test cssz=3483) Present PLATELET CONCENTRATION (CELLAVISION)(BEAKER) Adequate (test ijkl=2927) Received comment: User comments: Slide comments:[id number] 04:13:00 Test Item Value Reference Range Comments PROTIME (BEAKER) (test aobs=397) 20.4 seconds 11.7-14.7 INR (BEAKER) (test noyq=952) 1.9 <=5.9 PARTIAL THROMBOPLASTIN TIME (BEAKER) (test 45.0 seconds 22.5-36.0 dgtw=537) RECOMMENDED COUMADIN/WARFARIN INR THERAPY RANGESSTANDARD DOSE: 2.0 - 3.0 Includes: PROPHYLAXIS forvenous thrombosis, systemic embolization; TREATMENT for venous thrombosis and/or pulmonary embolus.HIGH RISK: Target INR is 2.5-3.5 for patients with mechanical heart valves.[id number] 04:12:00 Test Item Value Reference Range Comments MAGNESIUM (BEAKER) (test qyva=092) 1.8 mg/dL 1.6-2.6 BASIC METABOLIC [id number] 04:12:00 Test Item Value Reference Range Comments SODIUM (BEAKER) (test 135 meq/L 136-145 edpj=732) POTASSIUM (BEAKER) (test 3.4 meq/L 3.5-5.1 oxpo=671) CHLORIDE (BEAKER) (test 102 meq/L 98-107 uxto=400) CO2 (BEAKER) (test 24 meq/L 22-29 lwqa=765) BLOOD UREA NITROGEN 9 mg/dL 7-21 (BEAKER) (test jqqo=655) CREATININE (BEAKER) (test 0.72 mg/dL 0.57-1.25 tkhw=751) GLUCOSE RANDOM (BEAKER) 120 mg/dL 70-105 (test juyt=339) CALCIUM (BEAKER) (test 8.3 mg/dL 8.4-10.2 mytn=250) EGFR (BEAKER) (test 129 mL/min/1.73 sq m ESTIMATED GFR IS NOT xkfx=5676) ACCURATE CREATININE CLEARANCE IN PREDICTING GLOMERULAR FILTRATION RATE. ESTIMATED GFR IS NOT APPLICABLE FOR DIALYSIS PATIENTS. HEPATIC FUNCTION [id number] 04:12:00 Test Item Value Reference Range Comments TOTAL PROTEIN (BEAKER) (test bpxv=093) 6.3 gm/dL 6.0-8.3 ALBUMIN (BEAKER) (test eovc=3960) 2.7 g/dL 3.5-5.0 BILIRUBIN TOTAL (BEAKER) (test djnj=612) 2.3 mg/dL 0.2-1.2 BILIRUBIN DIRECT (BEAKER) (test jzhh=717) 1.7 mg/dL 0.1-0.5 ALKALINE PHOSPHATASE (BEAKER) (test dcco=532) 126 U/L 40-150 AST (SGOT) (BEAKER) (test fpse=897) 93 U/L 5-34 ALT (SGPT) (BEAKER) (test npso=036) 55 U/L 6-55 PROTHROMBIN [id number] 04:12:00 Test Item Value Reference Range Comments PROTIME (BEAKER) (test irre=874) 20.4 seconds 11.7-14.7 INR (BEAKER) (test jkxh=930) 1.9 <=5.9 RECOMMENDED COUMADIN/WARFARIN INR THERAPY RANGESSTANDARD DOSE: 2.0 - 3.0 Includes: PROPHYLAXIS forvenous thrombosis, systemic embolization; TREATMENT for venous thrombosis and/or pulmonary embolus.HIGH RISK: Target INR is 2.5-3.5 for patients with mechanical heart valves.BLOOD [id number] 02:02:00 Test Item Value Reference Range Comments CULTURE (BEAKER) (test ucxa=9473) No growth in 5 days BLOOD [id number] 02:02:00 Test Item Value Reference Range Comments CULTURE (BEAKER) (test rggd=0041) No growth in 5 days CBC W/PLT COUNT & AUTO [id number] 22:18:00 Test Item Value Reference Range Comments WHITE BLOOD CELL COUNT (BEAKER) (test iqgo=473) 20.1 K/ L 3.5-10.5 RED BLOOD CELL COUNT (BEAKER) (test xcgh=609) 4.01 M/ L 4.63-6.08 HEMOGLOBIN (BEAKER) (test okxz=338) 11.9 GM/DL 13.7-17.5 HEMATOCRIT (BEAKER) (test ugpw=004) 36.7 % 40.1-51.0 MEAN CORPUSCULAR VOLUME (BEAKER) (test dedg=712) 91.5 fL 79.0-92.2 MEAN CORPUSCULAR HEMOGLOBIN (BEAKER) (test 29.7 pg 25.7-32.2 wkeb=760) MEAN CORPUSCULAR HEMOGLOBIN CONC (BEAKER) (test 32.4 GM/DL 32.3-36.5 stzx=616) RED CELL DISTRIBUTION WIDTH (BEAKER) (test 14.5 % 11.6-14.4 bsqc=251) PLATELET COUNT (BEAKER) (test kmps=608) 332 K/CU MM 150-450 MEAN PLATELET VOLUME (BEAKER) (test znim=354) 10.8 fL 9.4-12.4 NUCLEATED RED BLOOD CELLS (BEAKER) (test 0 /100 WBC 0-0 vabp=402) (CELLAVISION MANUAL DIFF)[id number] 22:18:00 Test Item Value Reference Range Comments NEUTROPHILS - REL (CELLAVISION)(BEAKER) (test 79 % jkjd=6358) LYMPHOCYTES - REL (CELLAVISION)(BEAKER) (test 6 % fsgo=0983) MONOCYTES - REL (CELLAVISION)(BEAKER) (test 10 % ijyl=8978) EOSINOPHILS - REL (CELLAVISION)(BEAKER) (test 1 % fbqr=2868) BANDS - REL (CELLAVISION)(BEAKER) (test 3 % 0-10 prxh=9927) ATYPICAL LYMPHOCYTES - REL (CELLAVISION)(BEAKER) 1 % 0-0 (test jogx=5584) NEUTROPHILS - ABS (CELLAVISION)(BEAKER) (test 15.88 K/ul 1.78-5.38 rima=6256) LYMPHOCYTES - ABS (CELLAVISION)(BEAKER) (test 1.21 K/ul 1.32-3.57 glpc=0348) MONOCYTES - ABS (CELLAVISION)(BEAKER) (test 2.01 K/uL 0.30-0.82 easj=0656) EOSINOPHILS - ABS (CELLAVISION)(BEAKER) (test 0.20 K/uL 0.04-0.54 lijc=2871) BANDS - ABS (CELLAVISION)(BEAKER) (test 0.60 K/uL 0.00-0.80 btaw=6920) ATYPICAL LYMPHOCYTES - ABS (CELLAVISION)(BEAKER) 0.20 K/uL 0.00-0.00 (test ginx=7580) TOTAL COUNTED (BEAKER) (test xgvn=7735) 100 WBC MORPHOLOGY (BEAKER) (test iqyq=701) Normal GIANT PLATELETS (BEAKER) (test mibg=327) Present POLYCHROMATOPHILLIC RBCS(BEAKER) (test mmjm=072) 1+ few ARTIFACT (CELLAVISION)(BEAKER) (test spha=0971) Present PLATELET CONCENTRATION (CELLAVISION)(BEAKER) Adequate (test wnfg=2697) Received comment: User comments: Slide comments:[id number] 14:28:00 Test Item Value Reference Range Comments PROCALCITONIN (BEAKER) (test xywv=1829) 0.62 ng/mL <0.05 SEPSIS RISK (ng/mL)Low: 0.05-0.50Intermediate: 0.51-2.00High: & gt;=2.01LACTIC ACID, [id number] 14:07:00 Test Item Value Reference Range Comments LACTATE BLOOD VENOUS (2) 1.1 mmol/L 0.5-2.2 Specimen moderately hemolyzed (BEAKER) (test wtke=6408) [id number] 06:34:00 Test Item Value Reference Range Comments MAGNESIUM (BEAKER) (test btub=418) 1.7 mg/dL 1.6-2.6 BASIC METABOLIC [id number] 06:34:00 Test Item Value Reference Range Comments SODIUM (BEAKER) (test 136 meq/L 136-145 tnmr=434) POTASSIUM (BEAKER) (test 3.7 meq/L 3.5-5.1 dzso=452) CHLORIDE (BEAKER) (test 103 meq/L 98-107 getp=270) CO2 (BEAKER) (test 24 meq/L 22-29 zkdf=000) BLOOD UREA NITROGEN 10 mg/dL 7-21 (BEAKER) (test sfxr=083) CREATININE (BEAKER) (test 0.61 mg/dL 0.57-1.25 mtvz=137) GLUCOSE RANDOM (BEAKER) 131 mg/dL 70-105 (test lema=494) CALCIUM (BEAKER) (test 8.5 mg/dL 8.4-10.2 vrxi=990) EGFR (BEAKER) (test 156 mL/min/1.73 sq m ESTIMATED GFR IS NOT hhrx=3273) ACCURATE CREATININE CLEARANCE IN PREDICTING GLOMERULAR FILTRATION RATE. ESTIMATED GFR IS NOT APPLICABLE FOR DIALYSIS PATIENTS. HEPATIC FUNCTION [id number] 06:34:00 Test Item Value Reference Range Comments TOTAL PROTEIN (BEAKER) (test axfx=936) 6.0 gm/dL 6.0-8.3 ALBUMIN (BEAKER) (test yqez=7405) 2.6 g/dL 3.5-5.0 BILIRUBIN TOTAL (BEAKER) (test oixx=595) 2.0 mg/dL 0.2-1.2 BILIRUBIN DIRECT (BEAKER) (test roth=836) 1.6 mg/dL 0.1-0.5 ALKALINE PHOSPHATASE (BEAKER) (test encb=108) 117 U/L 40-150 AST (SGOT) (BEAKER) (test fjzq=769) 78 U/L 5-34 ALT (SGPT) (BEAKER) (test xycx=399) 53 U/L 6-55 PT/[id number] 06:06:00 Test Item Value Reference Range Comments PROTIME (BEAKER) (test uurp=125) 18.7 seconds 11.7-14.7 INR (BEAKER) (test pwtu=908) 1.7 <=5.9 PARTIAL THROMBOPLASTIN TIME (BEAKER) (test 38.7 seconds 22.5-36.0 xztz=009) RECOMMENDED COUMADIN/WARFARIN INR THERAPY RANGESSTANDARD DOSE: 2.0 - 3.0 Includes: PROPHYLAXIS forvenous thrombosis, systemic embolization; TREATMENT for venous thrombosis and/or pulmonary embolus.HIGH RISK: Target INR is 2.5-3.5 for patients with mechanical heart valves.PROTHROMBIN TIME/[id number] 06:05: 00 Test Item Value Reference Range Comments PROTIME (BEAKER) (test qymv=959) 18.7 seconds 11.7-14.7 INR (BEAKER) (test tuwg=367) 1.7 <=5.9 RECOMMENDED COUMADIN/WARFARIN INR THERAPY RANGESSTANDARD DOSE: 2.0 - 3.0 Includes: PROPHYLAXIS forvenous thrombosis, systemic embolization; TREATMENT for venous thrombosis and/or pulmonary embolus.HIGH RISK: Target INR is 2.5-3.5 for patients with mechanical heart valves.[id number] 06:22:00 Test Item Value Reference Range Comments MAGNESIUM (BEAKER) (test kuip=560) 1.8 mg/dL 1.6-2.6 BASIC METABOLIC [id number] 06:22:00 Test Item Value Reference Range Comments SODIUM (BEAKER) (test 135 meq/L 136-145 givb=293) POTASSIUM (BEAKER) (test 3.9 meq/L 3.5-5.1 tixp=911) CHLORIDE (BEAKER) (test 103 meq/L 98-107 nown=216) CO2 (BEAKER) (test 25 meq/L 22-29 zdfh=717) BLOOD UREA NITROGEN 12 mg/dL 7-21 (BEAKER) (test bmby=904) CREATININE (BEAKER) (test 0.65 mg/dL 0.57-1.25 nejh=565) GLUCOSE RANDOM (BEAKER) 135 mg/dL 70-105 (test tmwj=250) CALCIUM (BEAKER) (test 8.1 mg/dL 8.4-10.2 ucjy=142) EGFR (BEAKER) (test 145 mL/min/1.73 sq m ESTIMATED GFR IS NOT fbid=2577) ACCURATE CREATININE CLEARANCE IN PREDICTING GLOMERULAR FILTRATION RATE. ESTIMATED GFR IS NOT APPLICABLE FOR DIALYSIS PATIENTS. HEPATIC FUNCTION [id number] 06:22:00 Test Item Value Reference Range Comments TOTAL PROTEIN (BEAKER) (test epmv=899) 6.1 gm/dL 6.0-8.3 ALBUMIN (BEAKER) (test zkqb=0551) 2.5 g/dL 3.5-5.0 BILIRUBIN TOTAL (BEAKER) (test ytdf=680) 2.3 mg/dL 0.2-1.2 BILIRUBIN DIRECT (BEAKER) (test ozor=846) 1.7 mg/dL 0.1-0.5 ALKALINE PHOSPHATASE (BEAKER) (test ekbl=632) 112 U/L 40-150 AST (SGOT) (BEAKER) (test gusb=312) 74 U/L 5-34 ALT (SGPT) (BEAKER) (test teay=480) 46 U/L 6-55 PT/[id number] 06:08:00 Test Item Value Reference Range Comments PROTIME (BEAKER) (test jqjm=631) 17.4 seconds 11.7-14.7 INR (BEAKER) (test ohur=053) 1.5 <=5.9 PARTIAL THROMBOPLASTIN TIME (BEAKER) (test 39.9 seconds 22.5-36.0 zdvs=750) RECOMMENDED COUMADIN/WARFARIN INR THERAPY RANGESSTANDARD DOSE: 2.0 - 3.0 Includes: PROPHYLAXIS forvenous thrombosis, systemic embolization; TREATMENT for venous thrombosis and/or pulmonary embolus.HIGH RISK: Target INR is 2.5-3.5 for patients with mechanical heart valves.PROTHROMBIN TIME/[id number] 06:07: 00 Test Item Value Reference Range Comments PROTIME (BEAKER) (test ccek=845) 17.4 seconds 11.7-14.7 INR (BEAKER) (test tkqd=185) 1.5 <=5.9 RECOMMENDED COUMADIN/WARFARIN INR THERAPY RANGESSTANDARD DOSE: 2.0 - 3.0 Includes: PROPHYLAXIS forvenous thrombosis, systemic embolization; TREATMENT for venous thrombosis and/or pulmonary embolus.HIGH RISK: Target INR is 2.5-3.5 for patients with mechanical heart valves.CBC W/PLT COUNT & AUTO [id number] 05:56:00 Test Item Value Reference Range Comments WHITE BLOOD CELL COUNT (BEAKER) (test auew=513) 19.1 K/ L 3.5-10.5 RED BLOOD CELL COUNT (BEAKER) (test kbmk=189) 4.10 M/ L 4.63-6.08 HEMOGLOBIN (BEAKER) (test gjiq=925) 12.2 GM/DL 13.7-17.5 HEMATOCRIT (BEAKER) (test vebp=578) 37.5 % 40.1-51.0 MEAN CORPUSCULAR VOLUME (BEAKER) (test vyld=592) 91.5 fL 79.0-92.2 MEAN CORPUSCULAR HEMOGLOBIN (BEAKER) (test 29.8 pg 25.7-32.2 cfrj=309) MEAN CORPUSCULAR HEMOGLOBIN CONC (BEAKER) (test 32.5 GM/DL 32.3-36.5 jagd=015) RED CELL DISTRIBUTION WIDTH (BEAKER) (test 14.4 % 11.6-14.4 mhhu=271) PLATELET COUNT (BEAKER) (test uxyl=898) 306 K/CU MM 150-450 MEAN PLATELET VOLUME (BEAKER) (test xium=546) 10.9 fL 9.4-12.4 NUCLEATED RED BLOOD CELLS (BEAKER) (test 0 /100 WBC 0-0 mjwy=320) NEUTROPHILS RELATIVE PERCENT (BEAKER) (test 78 % vjgs=927) LYMPHOCYTES RELATIVE PERCENT (BEAKER) (test 9 % aaek=043) MONOCYTES RELATIVE PERCENT (BEAKER) (test 8 % eqix=919) EOSINOPHILS RELATIVE PERCENT (BEAKER) (test 2 % ucqb=830) BASOPHILS RELATIVE PERCENT (BEAKER) (test 0 % mbfp=017) NEUTROPHILS ABSOLUTE COUNT (BEAKER) (test 14.83 K/ L 1.78-5.38 fygj=517) LYMPHOCYTES ABSOLUTE COUNT (BEAKER) (test 1.66 K/ L 1.32-3.57 jrug=512) MONOCYTES ABSOLUTE COUNT (BEAKER) (test 1.48 K/ L 0.30-0.82 olil=996) EOSINOPHILS ABSOLUTE COUNT (BEAKER) (test 0.32 K/ L 0.04-0.54 hhhn=172) BASOPHILS ABSOLUTE COUNT (BEAKER) (test 0.07 K/ L 0.01-0.08 kjvg=932) IMMATURE GRANULOCYTES-RELATIVE PERCENT (BEAKER) 4 % 0-1 (test volk=6993) CBC W/PLT COUNT & AUTO [id number] 04:50:00 Test Item Value Reference Range Comments WHITE BLOOD CELL COUNT (BEAKER) (test uvxq=646) 16.6 K/ L 3.5-10.5 RED BLOOD CELL COUNT (BEAKER) (test foid=182) 3.82 M/ L 4.63-6.08 HEMOGLOBIN (BEAKER) (test wjqp=657) 11.3 GM/DL 13.7-17.5 HEMATOCRIT (BEAKER) (test uqjq=702) 35.6 % 40.1-51.0 MEAN CORPUSCULAR VOLUME (BEAKER) (test dlue=082) 93.2 fL 79.0-92.2 MEAN CORPUSCULAR HEMOGLOBIN (BEAKER) (test 29.6 pg 25.7-32.2 hxen=095) MEAN CORPUSCULAR HEMOGLOBIN CONC (BEAKER) (test 31.7 GM/DL 32.3-36.5 zhcj=332) RED CELL DISTRIBUTION WIDTH (BEAKER) (test 14.3 % 11.6-14.4 dlvw=740) PLATELET COUNT (BEAKER) (test qcea=051) 240 K/CU MM 150-450 MEAN PLATELET VOLUME (BEAKER) (test ochw=837) 11.0 fL 9.4-12.4 NUCLEATED RED BLOOD CELLS (BEAKER) (test 0 /100 WBC 0-0 ztza=315) NEUTROPHILS RELATIVE PERCENT (BEAKER) (test 76 % lolq=698) LYMPHOCYTES RELATIVE PERCENT (BEAKER) (test 11 % ayco=992) MONOCYTES RELATIVE PERCENT (BEAKER) (test 8 % tgic=245) EOSINOPHILS RELATIVE PERCENT (BEAKER) (test 2 % cvki=461) BASOPHILS RELATIVE PERCENT (BEAKER) (test 0 % nltm=489) NEUTROPHILS ABSOLUTE COUNT (BEAKER) (test 12.63 K/ L 1.78-5.38 aebe=438) LYMPHOCYTES ABSOLUTE COUNT (BEAKER) (test 1.90 K/ L 1.32-3.57 mwlm=695) MONOCYTES ABSOLUTE COUNT (BEAKER) (test 1.29 K/ L 0.30-0.82 xadl=604) EOSINOPHILS ABSOLUTE COUNT (BEAKER) (test 0.32 K/ L 0.04-0.54 rceu=755) BASOPHILS ABSOLUTE COUNT (BEAKER) (test 0.06 K/ L 0.01-0.08 yaot=099) IMMATURE GRANULOCYTES-RELATIVE PERCENT (BEAKER) 2 % 0-1 (test fvxr=5938) [id number] 04:26:00 Test Item Value Reference Range Comments MAGNESIUM (BEAKER) (test hzwl=163) 1.7 mg/dL 1.6-2.6 BASIC METABOLIC [id number] 04:26:00 Test Item Value Reference Range Comments SODIUM (BEAKER) (test 137 meq/L 136-145 fpcc=332) POTASSIUM (BEAKER) (test 3.7 meq/L 3.5-5.1 voqy=270) CHLORIDE (BEAKER) (test 106 meq/L 98-107 noat=568) CO2 (BEAKER) (test 25 meq/L 22-29 vitb=262) BLOOD UREA NITROGEN 10 mg/dL 7-21 (BEAKER) (test swnp=597) CREATININE (BEAKER) (test 0.68 mg/dL 0.57-1.25 oqeh=403) GLUCOSE RANDOM (BEAKER) 137 mg/dL 70-105 (test ohol=331) CALCIUM (BEAKER) (test 8.2 mg/dL 8.4-10.2 fjwn=576) EGFR (BEAKER) (test 138 mL/min/1.73 sq m ESTIMATED GFR IS NOT wrbk=2496) ACCURATE CREATININE CLEARANCE IN PREDICTING GLOMERULAR FILTRATION RATE. ESTIMATED GFR IS NOT APPLICABLE FOR DIALYSIS PATIENTS. HEPATIC FUNCTION [id number] 04:26:00 Test Item Value Reference Range Comments TOTAL PROTEIN (BEAKER) (test ezcz=221) 5.9 gm/dL 6.0-8.3 ALBUMIN (BEAKER) (test rxlm=9407) 2.6 g/dL 3.5-5.0 BILIRUBIN TOTAL (BEAKER) (test wuvh=333) 2.3 mg/dL 0.2-1.2 BILIRUBIN DIRECT (BEAKER) (test iedf=168) 1.8 mg/dL 0.1-0.5 ALKALINE PHOSPHATASE (BEAKER) (test zpis=163) 111 U/L 40-150 AST (SGOT) (BEAKER) (test dvzs=291) 88 U/L 5-34 ALT (SGPT) (BEAKER) (test chui=523) 54 U/L 6-55 [id number] 04:11:00 Test Item Value Reference Range Comments PROTIME (BEAKER) (test hnxy=488) 17.3 seconds 11.7-14.7 INR (BEAKER) (test bswc=214) 1.5 <=5.9 PARTIAL THROMBOPLASTIN TIME (BEAKER) (test 34.7 seconds 22.5-36.0 hdvr=279) RECOMMENDED COUMADIN/WARFARIN INR THERAPY RANGESSTANDARD DOSE: 2.0 - 3.0 Includes: PROPHYLAXIS forvenous thrombosis, systemic embolization; TREATMENT for venous thrombosis and/or pulmonary embolus.HIGH RISK: Target INR is 2.5-3.5 for patients with mechanical heart valves.PROTHROMBIN TIME/[id number] 04:10: 00 Test Item Value Reference Range Comments PROTIME (BEVIANEY) (test uyni=043) 17.3 seconds 11.7-14.7 INR (BEAKER) (test kxgl=243) 1.5 <=5.9 RECOMMENDED COUMADIN/WARFARIN INR THERAPY RANGESSTANDARD DOSE: 2.0 - 3.0 Includes: PROPHYLAXIS forvenous thrombosis, systemic embolization; TREATMENT for venous thrombosis and/or pulmonary embolus.HIGH RISK: Target INR is 2.5-3.5 for patients with mechanical heart valves.U/S, ABDOMINAL, [id number] 14: 19:00Abdomen limited area? Add comment if [...] MDReport Verified Date/Time: 06/01/2018 14:19:45 Reading Location: [facility] C0[facility] Transitional Reading Room CBC W/PLT COUNT & AUTO [id number] 06:28:00 Test Item Value Reference Range Comments WHITE BLOOD CELL COUNT (BEAKER) (test aqhb=937) 14.2 K/ L 3.5-10.5 RED BLOOD CELL COUNT (BEAKER) (test akxc=435) 4.02 M/ L 4.63-6.08 HEMOGLOBIN (BEAKER) (test nwqs=020) 11.8 GM/DL 13.7-17.5 HEMATOCRIT (BEAKER) (test rsjc=921) 37.3 % 40.1-51.0 MEAN CORPUSCULAR VOLUME (BEAKER) (test dbza=975) 92.8 fL 79.0-92.2 MEAN CORPUSCULAR HEMOGLOBIN (BEAKER) (test 29.4 pg 25.7-32.2 diic=145) MEAN CORPUSCULAR HEMOGLOBIN CONC (BEAKER) (test 31.6 GM/DL 32.3-36.5 pcbn=349) RED CELL DISTRIBUTION WIDTH (BEAKER) (test 14.4 % 11.6-14.4 rvhz=263) PLATELET COUNT (BEAKER) (test toco=072) 235 K/CU MM 150-450 MEAN PLATELET VOLUME (BEAKER) (test vzpq=179) 11.4 fL 9.4-12.4 NUCLEATED RED BLOOD CELLS (BEAKER) (test 0 /100 WBC 0-0 itlw=685) NEUTROPHILS RELATIVE PERCENT (BEAKER) (test 79 % nsew=256) LYMPHOCYTES RELATIVE PERCENT (BEAKER) (test 10 % fetz=504) MONOCYTES RELATIVE PERCENT (BEAKER) (test 8 % kwtg=271) EOSINOPHILS RELATIVE PERCENT (BEAKER) (test 1 % ioxm=369) BASOPHILS RELATIVE PERCENT (BEAKER) (test 0 % zjyi=313) NEUTROPHILS ABSOLUTE COUNT (BEAKER) (test 11.26 K/ L 1.78-5.38 avur=170) LYMPHOCYTES ABSOLUTE COUNT (BEAKER) (test 1.46 K/ L 1.32-3.57 lqng=821) MONOCYTES ABSOLUTE COUNT (BEAKER) (test 1.20 K/ L 0.30-0.82 wzlv=983) EOSINOPHILS ABSOLUTE COUNT (BEAKER) (test 0.12 K/ L 0.04-0.54 afgg=396) BASOPHILS ABSOLUTE COUNT (BEAKER) (test 0.05 K/ L 0.01-0.08 dlhz=390) IMMATURE GRANULOCYTES-RELATIVE PERCENT (BEAKER) 1 % 0-1 (test rjrc=7553) [id number] 05:51:00 Test Item Value Reference Range Comments MAGNESIUM (BEAKER) (test qawu=707) 2.0 mg/dL 1.6-2.6 BASIC METABOLIC [id number] 05:51:00 Test Item Value Reference Range Comments SODIUM (BEAKER) (test 140 meq/L 136-145 rhuv=633) POTASSIUM (BEAKER) (test 3.8 meq/L 3.5-5.1 kuaj=231) CHLORIDE (BEAKER) (test 106 meq/L 98-107 zjrx=453) CO2 (BEAKER) (test 27 meq/L 22-29 kgsc=970) BLOOD UREA NITROGEN 13 mg/dL 7-21 (BEAKER) (test iwpz=534) CREATININE (BEAKER) (test 0.69 mg/dL 0.57-1.25 pham=304) GLUCOSE RANDOM (BEAKER) 140 mg/dL 70-105 (test dayh=904) CALCIUM (BEAKER) (test 8.2 mg/dL 8.4-10.2 xusq=183) EGFR (BEAKER) (test 136 mL/min/1.73 sq m ESTIMATED GFR IS NOT rodx=1728) ACCURATE CREATININE CLEARANCE IN PREDICTING GLOMERULAR FILTRATION RATE. ESTIMATED GFR IS NOT APPLICABLE FOR DIALYSIS PATIENTS. Specimen slightly ictericHEPATIC FUNCTION [id number] 05:51:00 Test Item Value Reference Range Comments TOTAL PROTEIN (BEAKER) (test asmh=244) 5.9 gm/dL 6.0-8.3 ALBUMIN (BEAKER) (test eutl=9495) 2.6 g/dL 3.5-5.0 BILIRUBIN TOTAL (BEAKER) (test iaxk=872) 4.1 mg/dL 0.2-1.2 BILIRUBIN DIRECT (BEAKER) (test tncx=297) 3.2 mg/dL 0.1-0.5 ALKALINE PHOSPHATASE (BEAKER) (test oosb=716) 103 U/L 40-150 AST (SGOT) (BEAKER) (test weca=678) 95 U/L 5-34 ALT (SGPT) (BEAKER) (test jnlk=967) 48 U/L 6-55 Specimen slightly ictericPT/[id number] 05:30:00 Test Item Value Reference Range Comments PROTIME (BEAKER) (test gdrp=184) 16.0 seconds 11.7-14.7 INR (BEAKER) (test ritr=640) 1.3 <=5.9 PARTIAL THROMBOPLASTIN TIME (BEAKER) (test 38.9 seconds 22.5-36.0 kwgq=548) RECOMMENDED COUMADIN/WARFARIN INR THERAPY RANGESSTANDARD DOSE: 2.0 - 3.0 Includes: PROPHYLAXIS forvenous thrombosis, systemic embolization; TREATMENT for venous thrombosis and/or pulmonary embolus.HIGH RISK: Target INR is 2.5-3.5 for patients with mechanical heart valves.PROTHROMBIN TIME/[id number] 05:29: 00 Test Item Value Reference Range Comments PROTIME (BEAKER) (test etyc=816) 16.0 seconds 11.7-14.7 INR (BEAKER) (test rozp=535) 1.3 <=5.9 RECOMMENDED COUMADIN/WARFARIN INR THERAPY RANGESSTANDARD DOSE: 2.0 - 3.0 Includes: PROPHYLAXIS forvenous thrombosis, systemic embolization; TREATMENT for venous thrombosis and/or pulmonary embolus.HIGH RISK: Target INR is 2.5-3.5 for patients with mechanical heart valves.RAD, CHEST, 1 VIEW, NON [id number] 11:58:00Reason for exam:->pancreatitisShould this be performed [...] inthe left lung base. Signed: Michael Briones Verified Date/Time: 05/31/2018 11:58:54 Reading Location: [facility] Radiology Reading Room CBC W/PLT COUNT & AUTO [id number] 08:44:00 Test Item Value Reference Range Comments WHITE BLOOD CELL COUNT (BEAKER) (test noqa=553) 21.6 K/ L 3.5-10.5 RED BLOOD CELL COUNT (BEAKER) (test uwfs=076) 4.15 M/ L 4.63-6.08 HEMOGLOBIN (BEAKER) (test wxlj=133) 12.3 GM/DL 13.7-17.5 HEMATOCRIT (BEAKER) (test dvbv=726) 38.0 % 40.1-51.0 MEAN CORPUSCULAR VOLUME (BEAKER) (test qqbq=442) 91.6 fL 79.0-92.2 MEAN CORPUSCULAR HEMOGLOBIN (BEAKER) (test 29.6 pg 25.7-32.2 kwqu=125) MEAN CORPUSCULAR HEMOGLOBIN CONC (BEAKER) (test 32.4 GM/DL 32.3-36.5 nhsx=620) RED CELL DISTRIBUTION WIDTH (BEAKER) (test 13.9 % 11.6-14.4 hahb=267) PLATELET COUNT (BEAKER) (test qxdi=659) 232 K/CU MM 150-450 MEAN PLATELET VOLUME (BEAKER) (test ifbn=107) 11.4 fL 9.4-12.4 NUCLEATED RED BLOOD CELLS (BEAKER) (test 0 /100 WBC 0-0 idbi=357) (CELLAVISION MANUAL DIFF)2018-05-31 08:44:00 Test Item Value Reference Range Comments NEUTROPHILS - REL (CELLAVISION)(BEAKER) (test 63 % ztdh=1559) LYMPHOCYTES - REL (CELLAVISION)(BEAKER) (test 5 % tzto=8422) MONOCYTES - REL (CELLAVISION)(BEAKER) (test 13 % owwj=2309) EOSINOPHILS - REL (CELLAVISION)(BEAKER) (test 1 % rqku=9199) BANDS - REL (CELLAVISION)(BEAKER) (test 18 % 0-10 mdxd=8344) NEUTROPHILS - ABS (CELLAVISION)(BEAKER) (test 13.61 K/ul 1.78-5.38 lhio=6680) LYMPHOCYTES - ABS (CELLAVISION)(BEAKER) (test 1.08 K/ul 1.32-3.57 fyyq=8765) MONOCYTES - ABS (CELLAVISION)(BEAKER) (test 2.81 K/uL 0.30-0.82 zxtp=0551) EOSINOPHILS - ABS (CELLAVISION)(BEAKER) (test 0.22 K/uL 0.04-0.54 mwvp=2709) BANDS - ABS (CELLAVISION)(BEAKER) (test 3.89 K/uL 0.00-0.80 iscg=5620) TOTAL COUNTED (BEAKER) (test lzur=0512) 100 RBC MORPHOLOGY (BEAKER) (test dijt=880) Normal SMUDGE CELLS (BEAKER) (test tjbh=9331) Present GIANT PLATELETS (BEAKER) (test pkpk=450) Present ARTIFACT (CELLAVISION)(BEAKER) (test dcbo=7219) Present PLATELET CONCENTRATION (CELLAVISION)(BEAKER) Adequate (test xsgl=9061) Received comment: User comments: Slide comments:[id number] 04:27:00 Test Item Value Reference Range Comments MAGNESIUM (BEAKER) (test llrb=301) 1.6 mg/dL 1.6-2.6 BASIC METABOLIC [id number] 04:27:00 Test Item Value Reference Range Comments SODIUM (BEAKER) (test 139 meq/L 136-145 nxcl=812) POTASSIUM (BEAKER) (test 3.7 meq/L 3.5-5.1 bsut=277) CHLORIDE (BEAKER) (test 101 meq/L 98-107 vykg=158) CO2 (BEAKER) (test 28 meq/L 22-29 kukv=708) BLOOD UREA NITROGEN 21 mg/dL 7-21 (BEAKER) (test kkkh=656) CREATININE (BEAKER) (test 0.80 mg/dL 0.57-1.25 tuso=815) GLUCOSE RANDOM (BEAKER) 135 mg/dL 70-105 (test vhna=368) CALCIUM (BEAKER) (test 8.0 mg/dL 8.4-10.2 gzfb=322) EGFR (BEAKER) (test 114 mL/min/1.73 sq m ESTIMATED GFR IS NOT vopt=5099) ACCURATE CREATININE CLEARANCE IN PREDICTING GLOMERULAR FILTRATION RATE. ESTIMATED GFR IS NOT APPLICABLE FOR DIALYSIS PATIENTS. Specimen moderately ictericHEPATIC FUNCTION [id number] 04:27:00 Test Item Value Reference Range Comments TOTAL PROTEIN (BEAKER) (test yzkb=131) 6.1 gm/dL 6.0-8.3 ALBUMIN (BEAKER) (test bkxd=9116) 2.7 g/dL 3.5-5.0 BILIRUBIN TOTAL (BEAKER) (test ovjf=738) 5.2 mg/dL 0.2-1.2 BILIRUBIN DIRECT (BEAKER) (test qldr=207) 4.1 mg/dL 0.1-0.5 ALKALINE PHOSPHATASE (BEAKER) (test snke=559) 80 U/L 40-150 AST (SGOT) (BEAKER) (test lvsx=281) 39 U/L 5-34 ALT (SGPT) (BEAKER) (test rfnu=042) 29 U/L 6-55 Specimen moderately ictericPT/[id number] 04:15:00 Test Item Value Reference Range Comments PROTIME (BEAKER) (test ozap=915) 17.0 seconds 11.7-14.7 INR (BEAKER) (test cojw=385) 1.4 <=5.9 PARTIAL THROMBOPLASTIN TIME (BEAKER) (test 39.4 seconds 22.5-36.0 usjt=659) RECOMMENDED COUMADIN/WARFARIN INR THERAPY RANGESSTANDARD DOSE: 2.0 - 3.0 Includes: PROPHYLAXIS forvenous thrombosis, systemic embolization; TREATMENT for venous thrombosis and/or pulmonary embolus.HIGH RISK: Target INR is 2.5-3.5 for patients with mechanical heart valves.PROTHROMBIN TIME/[id number] 04:14: 00 Test Item Value Reference Range Comments PROTIME (BEAKER) (test eufu=606) 17.0 seconds 11.7-14.7 INR (BEAKER) (test vbgg=661) 1.4 <=5.9 RECOMMENDED COUMADIN/WARFARIN INR THERAPY RANGESSTANDARD DOSE: 2.0 - 3.0 Includes: PROPHYLAXIS forvenous thrombosis, systemic embolization; TREATMENT for venous thrombosis and/or pulmonary embolus.HIGH RISK: Target INR is 2.5-3.5 for patients with mechanical heart valves.URINALYSIS W/ REFLEX URINE [id number] 21:53:00 Test Item Value Reference Range Comments COLOR (BEAKER) (test yrbx=374) Dark Yellow CLARITY (BEAKER) (test qupv=107) Clear SPECIFIC GRAVITY UA (BEAKER) (test igli=160) 1.050 1.001-1.035 PH UA (BEAKER) (test wwnt=358) 6.5 5.0-8.0 PROTEIN UA (BEAKER) (test tapb=788) 100 mg/dL Negative GLUCOSE UA (BEAKER) (test ofgb=522) Negative Negative KETONES UA (BEAKER) (test jqyj=205) 80 mg/dL Negative BILIRUBIN UA (BEAKER) (test dvkw=461) Positive Negative BLOOD UA (BEAKER) (test qzjc=247) Small Negative NITRITE UA (BEAKER) (test srkt=075) Negative Negative LEUKOCYTE ESTERASE UA (BEAKER) (test nfgo=715) Negative Negative UROBILINOGEN UA (BEAKER) (test xwyt=225) 2.0 mg/dL 0.2-1.0 RBC UA (BEAKER) (test bnja=152) 20 /HPF WBC UA (BEAKER) (test cejq=550) 1 /HPF SQUAMOUS EPITHELIAL (BEAKER) (test pipc=628) < /HPF CRYSTALS, URINE (BEAKER) (test bxch=4999) Rare SOURCE(BEAKER) (test qwee=0915) CBC W/PLT COUNT & AUTO [id number] 21:33:00 Test Item Value Reference Range Comments WHITE BLOOD CELL COUNT (BEAKER) (test gmtu=775) 26.6 K/ L 3.5-10.5 RED BLOOD CELL COUNT (BEAKER) (test seiv=620) 4.57 M/ L 4.63-6.08 HEMOGLOBIN (BEAKER) (test jyyo=170) 13.6 GM/DL 13.7-17.5 HEMATOCRIT (BEAKER) (test sccl=874) 41.6 % 40.1-51.0 MEAN CORPUSCULAR VOLUME (BEAKER) (test nppz=366) 91.0 fL 79.0-92.2 MEAN CORPUSCULAR HEMOGLOBIN (BEAKER) (test 29.8 pg 25.7-32.2 eehr=027) MEAN CORPUSCULAR HEMOGLOBIN CONC (BEAKER) (test 32.7 GM/DL 32.3-36.5 sriz=754) RED CELL DISTRIBUTION WIDTH (BEAKER) (test 14.1 % 11.6-14.4 dqgb=711) PLATELET COUNT (BEAKER) (test odnq=242) 287 K/CU MM 150-450 MEAN PLATELET VOLUME (BEAKER) (test scib=536) 11.8 fL 9.4-12.4 NUCLEATED RED BLOOD CELLS (BEAKER) (test 0 /100 WBC 0-0 sjzx=722) (CELLAVISION MANUAL DIFF)2018-05-30 21:33:00 Test Item Value Reference Range Comments NEUTROPHILS - REL (CELLAVISION)(BEAKER) (test 84 % dttg=1974) LYMPHOCYTES - REL (CELLAVISION)(BEAKER) (test 4 % hulc=8626) MONOCYTES - REL (CELLAVISION)(BEAKER) (test 6 % uyrj=4737) EOSINOPHILS - REL (CELLAVISION)(BEAKER) (test 1 % rrha=7355) BANDS - REL (CELLAVISION)(BEAKER) (test 5 % 0-10 rlew=5652) NEUTROPHILS - ABS (CELLAVISION)(BEAKER) (test 22.34 K/ul 1.78-5.38 mozp=6650) LYMPHOCYTES - ABS (CELLAVISION)(BEAKER) (test 1.06 K/ul 1.32-3.57 gphi=8345) MONOCYTES - ABS (CELLAVISION)(BEAKER) (test 1.60 K/uL 0.30-0.82 ifpl=1708) EOSINOPHILS - ABS (CELLAVISION)(BEAKER) (test 0.27 K/uL 0.04-0.54 gask=3292) BANDS - ABS (CELLAVISION)(BEAKER) (test 1.33 K/uL 0.00-0.80 bnbe=0737) TOTAL COUNTED (BEAKER) (test zyjm=6476) 100 RBC MORPHOLOGY (BEAKER) (test nqyt=803) Normal SMUDGE CELLS (BEAKER) (test znht=5347) Present GIANT PLATELETS (BEAKER) (test zgwg=961) Present VACUOLATED NEUTROPHILS (BEAKER) (test panv=563) Present ARTIFACT (CELLAVISION)(BEAKER) (test unjf=8270) Present PLATELET CONCENTRATION (CELLAVISION)(BEAKER) Adequate (test gdmt=0751) Received comment: User comments: Slide comments:TROPONIN [id number] 21:32:00 Test Item Value Reference Range Comments TROPONIN I (BEAKER) (test obsh=373) < ng/mL 0.00-0.03 Troponin I (TnI) levels [...] acute neurological disease, and persistent tachyarrhythmia.BASIC METABOLIC [id number] 21:29:00 Test Item Value Reference Range Comments SODIUM (BEAKER) (test 134 meq/L 136-145 mubp=983) POTASSIUM (BEAKER) (test 3.6 meq/L 3.5-5.1 ehwr=499) CHLORIDE (BEAKER) (test 99 meq/L 98-107 uzgh=495) CO2 (BEAKER) (test 25 meq/L 22-29 ekqh=543) BLOOD UREA NITROGEN 25 mg/dL 7-21 (BEAKER) (test mmzg=359) CREATININE (BEAKER) (test 0.80 mg/dL 0.57-1.25 acpu=903) GLUCOSE RANDOM (BEAKER) 144 mg/dL 70-105 (test udwe=729) CALCIUM (BEAKER) (test 7.8 mg/dL 8.4-10.2 ejwx=858) EGFR (BEAKER) (test 114 mL/min/1.73 sq m ESTIMATED GFR IS NOT xwaz=3659) ACCURATE CREATININE CLEARANCE IN PREDICTING GLOMERULAR FILTRATION RATE. ESTIMATED GFR IS NOT APPLICABLE FOR DIALYSIS PATIENTS. Specimen moderately [id number] 21:27:00 Test Item Value Reference Range Comments MAGNESIUM (BEAKER) (test lvoj=572) 1.6 mg/dL 1.6-2.6 LIPID [id number] 21:27:00 Test Item Value Reference Range Comments TRIGLYCERIDES (BEAKER) (test cvgo=198) 102 mg/dL CHOLESTEROL (BEAKER) (test iidi=468) 101 mg/dL HDL CHOLESTEROL (BEAKER) (test gvsx=443) 17 mg/dL LDL CHOLESTEROL CALCULATED (BEAKER) (test 64 mg/dL uyce=071) Triglyceride Reference Range: Low Risk <150 Borderline 150- 199 High Risk 200-499 Very High Risk >=500Cholesterol Reference Range: Low Risk <200 Borderline 200-239 High Risk > 240HDL Cholesterol Reference Range: Low Risk >=60 High Risk <40LDL Cholesterol Reference Range: Optimal <100 Near Optimal 100-129 Borderline 130-159 High 160-189 Very High >=190 Specimen moderatelyictericHEPATIC FUNCTION [id number] 21:27: 00 Test Item Value Reference Range Comments TOTAL PROTEIN (BEAKER) (test mawh=100) 6.5 gm/dL 6.0-8.3 ALBUMIN (BEAKER) (test dphh=0836) 2.9 g/dL 3.5-5.0 BILIRUBIN TOTAL (BEAKER) (test ygeh=368) 5.1 mg/dL 0.2-1.2 BILIRUBIN DIRECT (BEAKER) (test ahac=917) 3.9 mg/dL 0.1-0.5 ALKALINE PHOSPHATASE (BEAKER) (test hnjk=474) 87 U/L 40-150 AST (SGOT) (BEAKER) (test hxnw=046) 38 U/L 5-34 ALT (SGPT) (BEAKER) (test kjbn=221) 28 U/L 6-55 Specimen moderately ictericGAMMA GLUTAMYL TRANSFERASE (GGT)2018-05-30 21:27:00 Test Item Value Reference Range Comments GAMMA GLUTAMYL TRANSFERASE (BEAKER) (test hjgg=785) 55 U/L 9-64 Specimen moderately [id number] 21:27:00 Test Item Value Reference Range Comments LIPASE (BEAKER) (test hrxt=450) 227 U/L 8-78 Specimen moderately ictericPROTHROMBIN TIME/[id number] 21:05:00 Test Item Value Reference Range Comments PROTIME (BEAKER) (test ptan=918) 17.1 seconds 11.7-14.7 INR (BEAKER) (test xozz=170) 1.4 <=5.9 RECOMMENDED COUMADIN/WARFARIN INR THERAPY RANGESSTANDARD DOSE: 2.0 - 3.0 Includes: PROPHYLAXIS forvenous thrombosis, systemic embolization; TREATMENT for venous thrombosis and/or pulmonary embolus.HIGH RISK: Target INR is 2.5-3.5 for patients with mechanical heart valves.
[2018-07-26] MEDS ORDERED: FENTANYL CITR 100 MCG/2 ML ONE (05:37)
[2018-07-26] MEDS ORDERED: ONDANSETRON 4 MG/2 ML VIAL ONE (05:37)
[2018-07-26] MEDS ORDERED: FAMOTIDINE 20 MG/2 ML VIAL IV ONE (05:37)
[2018-07-26] MEDS ORDERED: NA CHLORIDE 0.9% 2,000 ML ONE (05:38)
[2018-07-26 05:56] LABS: Basophils % 0.3 % (0-1.3); Eosinophils % 0.3 % (0-4.4); MPV 9.6 fL (7.6-11.3); Monocytes % 8.8 % (3.3-12.3); RBC Red Blood Cell Count 4.38 M/uL (4.33-5.43)
[2018-07-26 05:59] LABS: Protime INR 1.83
[2018-07-26 06:08] LABS: ALT/SGPT 64 U/L (12-78); AST/SGOT 73 U/L (15-37); Albumin 2.3 g/dL (3.4-5.0); Alkaline Phosphatase 138 U/L (45-117); BUN Blood Urea Nitrogen 8 mg/dL (7-18); Bicarbonate 27 mmol/L (21-32); Bilirubin Direct 1.4 mg/dL (0-0.2); Glucose Level 130 mg/dL (74-106); Lipase 278 U/L (73-393); Magnesium 1.6 mg/dL (1.8-2.4); NT PRO-BNP 46 pg/mL (<125); Potassium 3.4 mmol/L (3.5-5.1); Protein, Total 7.7 g/dL (6.4-8.2); Sodium Level 136 mmol/L (136-145); Troponin (Emerg Dept Use Only) < 0.02 ng/mL (0.0-0.045)
[2018-07-26] MEDS ORDERED: NS KCL 20MEQ 1,000 ML IV ONE (06:43)
[2018-07-26] MEDS ORDERED: CIPROFLOXACIN 400mg IV 400 MG/200 ML BAG IV ONE (06:44)
[2018-07-26] MEDS ORDERED: MAGNESIUM SULFATE 1 gm IVPB 1 GM/100 ML BAG IV ONE (06:44)
[2018-07-26] MEDS ORDERED: NA CHLORIDE 0.9% 1,000 ML ONE (06:45)
[2018-07-26] MEDS ORDERED: METRONIDAZOLE 500mg IVPB 500 MG/100 ML BAG IV ONE (06:45)
[2018-07-26 07:31] LABS: Blood Morphology Comment NOT SEEN (NOT SEEN); Platelet Estimate ADEQ
--- NOTE | 2018-07-26 07:44 | RAD REPORT ---
EXAM DESCRIPTION: CTAbdomen Pelvis W Contrast - 07/26/2018 7:14 am CLINICAL HISTORY: Abdominal pain. Abd pain;Nausea / vomiting COMPARISON: Abdomen Pelvis W Contrast dated 07/09/2018; Abdomen Pelvis W Contrast dated 05/30/2018 TECHNIQUE: Biphasic CT imaging of the abdomen and pelvis was performed with 100 ml non-ionic IV cont rast. All CT scans are performed using dose optimization technique as appropriate and may include automated exposure control or mA/KV adjustment according to patient size. FINDINGS: Small left pleural effusion is noted. The liver demonstrates no focal mass or biliary dilatation. Common bile duct stent is in place. Gallb ladder appears absent. The spleen, adrenal glands and kidneys are within normal limits. Multiple poor ly defined peripancreatic fluid collections are present, the largest in the region of the pancreatic tail measuring 6.7 x 4.2 cm. Previously noted drainage catheter in this region has been removed. A st ent appears tip in place between the stomach the pancreatic tail fluid collection since the prior wallace dy. Overall, no significant change is appreciated in the multiple peripancreatic loculated fluid floridalma ections since 07/09/2018. No bowel obstruction, free air, free fluid or abscess. The appendix is not clearly visualized howeve r no secondary findings of appendicitis seen. No evidence of significant lymphadenopathy. No suspicious bony findings. 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 Pigtail d rain has been removed and internal drainage stent spanning the stomach and pancreatic tail region has been placed.
--- NOTE | 2018-07-26 07:47 | RAD REPORT ---
EXAM DESCRIPTION: RAD - Chest Single View - 07/26/2018 5:53 am CLINICAL HISTORY: Cough;Abdominal distention Chest pain. COMPARISON: Chest Single View dated 07/09/2018; Chest Single View dated 05/30/2018 FINDINGS: Portable technique limits examination quality. Small left pleural effusion is seen with underinflated lungs. The heart is normal in size. No displac ed fractures.
--- NOTE | 2018-07-26 08:24 | EDPHYS ---
Physician Documentation [facility] Name: Jann Alvarez Age: 28 yrs Sex: Male : 1990 Arrival Date: 07/26/2018 Time: 04:44 Bed 5 Private MD: Zac Coughlin ED Physician Rush Briones HPI: 07/26 05:12 This 28 yrs old Male presents to ER via Ambulatory with complaints of Fever, rachelle Vomiting. 05:12 The patient reports fever, that was measured at 100 degrees Fahrenheit. Onset: The rachelle symptoms/episode began/occurred 1 day(s) ago. Modifying factors: there are no obvious modifying factors. Associated signs and symptoms: Pertinent positives: abdominal pain. Severity of symptoms: At their worst the symptoms were mild moderate in the emergency department the symptoms are unchanged. The patient has experienced similar episodes in the past, several times. Historical: - Allergies: 05:05 Zosyn; jd3 05:05 Vancomycin; jd3 05:05 meropenem; jd3 - Home Meds: 05:05 Dulcolax (bisacodyl) 5 mg Oral TbEC 1 tab [Active]; hydrocodone-acetaminophen 10-325 mg cc3 Oral tab 1 tab every 4 hours [Active]; nystatin 100,000 unit/gram Topical crea 2 times per day [Active]; polyethylene glycol 3350 17 gram Oral pwpk 1 packet once daily [Active]; - PMHx: 05:05 Lupus; Pancreatitis; jd3 05:05 Autism- Nonverbal; cc3 - PSHx: 05:05 ALLEY drain/removed; ERCP; gall bladder stent x1; jd3 - Immunization history:: Adult Immunizations up to date. - Social history:: Smoking status: Patient/guardian denies using tobacco. - Ebola Screening: : Patient negative for fever greater than or equal to 101.5 degrees Fahrenheit, and additional compatible Ebola Virus Disease symptoms. ROS: 05:12 Constitutional: Negative for fever, chills, and weight loss, Eyes: Negative for injury, rachelle pain, redness, and discharge, ENT: Negative for injury, pain, and discharge, Neck: Negative for injury, pain, and swelling, Cardiovascular: Negative for chest pain, palpitations, and edema, Respiratory: Negative for shortness of breath, cough, wheezing, and pleuritic chest pain, Back: Negative for injury and pain, : Negative for injury, bleeding, discharge, and swelling, MS/Extremity: Negative for injury and deformity, Skin: Negative for injury, rash, and discoloration, Neuro: Negative for headache, weakness, numbness, tingling, and seizure, Psych: Negative for depression, anxiety, suicide ideation, homicidal ideation, and hallucinations, Allergy/Immunology: Negative for hives, rash, and allergies, Endocrine: Negative for neck swelling, polydipsia, polyuria, polyphagia, and marked weight changes, Hematologic/Lymphatic: Negative for swollen nodes, abnormal bleeding, and unusual bruising. 05:12 Abdomen/GI: Positive for abdominal pain, nausea and vomiting, abdominal cramps, of the epigastric area, right upper quadrant and left upper quadrant. Exam: 05:12 Constitutional: This is a well developed, well nourished patient who is awake, alert, rachelle and in no acute distress. Head/Face: Normocephalic, atraumatic. Eyes: Pupils equal round and reactive to light, extra-ocular motions intact. Lids and lashes normal. Conjunctiva and sclera are non-icteric and not injected. Cornea within normal limits. Periorbital areas with no swelling, redness, or edema. ENT: Nares patent. No nasal discharge, no septal abnormalities noted. Tympanic membranes are normal and external auditory canals are clear. Oropharynx with no redness, swelling, or masses, exudates, or evidence of obstruction, uvula midline. Mucous membranes moist. Neck: Trachea midline, no thyromegaly or masses palpated, and no cervical lymphadenopathy. Supple, full range of motion without nuchal rigidity, or vertebral point tenderness. No Meningismus. Chest/axilla: Normal chest wall appearance and motion. Nontender with no deformity. No lesions are appreciated. Cardiovascular: Regular rate and rhythm with a normal S1 and S2. No gallops, murmurs, or rubs. Normal PMI, no JVD. No pulse deficits. Respiratory: Lungs have equal breath sounds bilaterally, clear to auscultation and percussion. No rales, rhonchi or wheezes noted. No increased work of breathing, no retractions or nasal flaring. Back: No spinal tenderness. No costovertebral tenderness. Full range of motion. Male : Normal genitalia with no discharge or lesions. MS/ Extremity: Pulses equal, no cyanosis. Neurovascular intact. Full, normal range of motion. Neuro: Awake and alert, GCS 15, oriented to person, place, time, and situation. Cranial nerves II-XII grossly intact. Motor strength 5/5 in all extremities. Sensory grossly intact. Cerebellar exam normal. Normal gait. Psych: Awake, alert, with orientation to person, place and time. Behavior, mood, and affect are within normal limits. 05:12 Abdomen/GI: Inspection: abdomen appears normal, Bowel sounds: normal, Palpation: moderate abdominal tenderness, Liver: no appreciated palpable abnormalities, Hernia: not appreciated. 05:12 Skin: Appearance: Color: pale. Vital Signs: 05:06 BP 101 / 85; Pulse 125; Resp 19 S; Temp 98.2(O); Pulse Ox 95% on R/A; Weight 83.01 kg jd3 (R); Height 5 ft. 10 in. (177.80 cm) (R); Pain 4/10; 06:13 BP 108 / 86; Pulse 120; Resp 18 S; Pulse Ox 97% on R/A; cc3 08:22 BP 100 / 69; Pulse 112; Resp 19; Temp 98.2; Pulse Ox 96% ; bp 05:06 Body Mass Index 26.26 (83.01 kg, 177.80 cm) jd3 MDM: 04:47 Patient medically screened. [facility] 05:14 Data reviewed: vital signs, nurses notes, lab test result(s), EKG, radiologic studies, [facility] CT scan, plain films. 07/26 05:11 Order name: Basic Metabolic Panel [facility] 07/26 05:11 Order name: CBC with Diff [facility] 07/26 05:11 Order name: LFT's [facility] 07/26 05:11 Order name: Magnesium [facility] 07/26 05:11 Order name: NT PRO-BNP [facility] 07/26 05:11 Order name: PT-INR; Complete Time: 06:13 [facility] 07/26 05:11 Order name: Troponin (emerg Dept Use Only); Complete Time: 06:13 [facility] 07/26 05:11 Order name: Lipase; Complete Time: 06:13 [facility] 07/26 05:11 Order name: Blood Culture Adult (2) [facility] 07/26 05:11 Order name: Procalcitonin; Complete Time: 06:32 [facility] 07/26 05:11 Order name: Lactate; Complete Time: 06:13 [facility] 07/26 05:18 Order name: Basic Metabolic Panel; Complete Time: 06:13 [facility] 07/26 05:18 Order name: CBC with Automated Diff [facility] 07/26 05:18 Order name: Liver (Hepatic) Function; Complete Time: 06:13 [facility] 07/26 05:11 Order name: XRAY Chest (1 view) [facility] 07/26 05:11 Order name: EKG; Complete Time: 05:19 [facility] 07/26 05:15 Order name: CT Abd/Pelvis - PO and IV Contrast [facility] 07/26 05:19 Order name: Magnesium; Complete Time: 06:13 [facility] 07/26 05:19 Order name: NT PRO-BNP; Complete Time: 06:13 [facility] 07/26 07:31 Order name: Manual Differential [facility] 07/26 05:11 Order name: Cardiac monitoring; Complete Time: 05:18 [facility] 07/26 05:11 Order name: EKG - Nurse/Tech; Complete Time: 05:22 [facility] 07/26 05:11 Order name: IV Saline Lock; Complete Time: 05:45 [facility] 07/26 05:11 Order name: Labs collected and sent; Complete Time: 05:45 [facility] 07/26 05:11 Order name: O2 Per Protocol; Complete Time: 05:18 [facility] 07/26 05:11 Order name: O2 Sat Monitoring; Complete Time: 05:18 rachelle Administered Medications: Discontinued: NS 0.9% 1000 ml IV at 125 ml/hr continuous 05:25 Drug: NS 0.9% 1000 ml Route: IV; Rate: 1 bolus; Site: right antecubital; cc3 06:20 Follow up: Response: No adverse reaction; IV Status: Completed infusion; IV Intake: cc3 1000ml 05:26 Drug: fentaNYL (PF) 25 mcg Route: IVP; Site: right antecubital; cc3 06:10 Follow up: Response: No adverse reaction; Pain is decreased cc3 05:29 Drug: Pepcid 20 mg Route: IVP; Site: right antecubital; cc3 06:10 Follow up: Response: No adverse reaction; Pain is decreased cc3 05:35 Drug: Zofran 4 mg Route: IVP; Site: right antecubital; cc3 06:10 Follow up: Response: No adverse reaction; Nausea is decreased; Vomiting decreased cc3 06:00 Drug: NS 0.9% 1000 ml Route: IV; Rate: 125 ml/hr; Site: right antecubital; cc3 06:30 Drug: NS 0.9% with KCl 20 mEq/L 1000 ml Route: IV; Rate: 125 ml/hr; Site: right cc3 antecubital; 08:41 Follow up: IV Status: Infusion continued upon transfer bp 06:45 Drug: Magnesium Sulfate 1 grams Route: IVPB; Infused Over: 1 hrs; Site: left cc3 antecubital; 08:41 Follow up: IV Status: Completed infusion; IV Intake: 100ml bp 07:00 Drug: Flagyl 500 mg Volume: 100 ml; Route: IVPB; Rate: 200 ml/hr; Infused Over: 30 cc3 mins; Site: left antecubital; 08:42 Follow up: IV Status: Completed infusion; IV Intake: 100ml bp 08:30 Drug: Cipro 400 mg Volume: 200 ml; Route: IVPB; Infused Over: 60 mins; Site: right bp wrist; 08:44 Follow up: IV Status: Infusion continued upon transfer bp 08:30 Drug: NS 0.9% 1000 ml Route: IV; Rate: 1 bolus; Site: right forearm; bp 08:43 Follow up: IV Status: Completed infusion bp Disposition: 07/26/18 06:[address] [facility]. Diagnosis are Abdominal tenderness, Vomiting, Elevated white blood cell count, Pleural effusion in conditions classified elsewhere, Hypokalemia, Hypomagnesemia. - Reason for transfer: Higher level of care. - Accepting physician is to [facility]. - Condition is Fair. - Problem is new. - Symptoms have improved. Signatures: Dispatcher [employer] EDVA Rush Briones MD MD cha Davies, Jonathon, RN RN Vaibhav Crabtree RN RN bp Cordel, Charlene cc3 Corrections: (The following items were deleted from the chart) 05:49 05:05 Home Meds: None; john cc3 06:33 06:22 07/26/2018 06:[address] [facility]. Diagnosis is rachelle Abdominal tenderness; Vomiting; Elevated white blood cell count; Pleural effusion in conditions classified elsewhere. Reason for transfer: Higher level of care. Accepting physician is to [facility]. Condition is Fair. Problem is new. Symptoms have improved. [facility] 09:03 06:33 07/26/2018 06:[address] [facility]. Diagnosis is bp Abdominal tenderness; Vomiting; Elevated white blood cell count; Pleural effusion in conditions classified elsewhere; Hypokalemia; Hypomagnesemia. Reason for transfer: Higher level of care. Accepting physician is to [facility]. Condition is Fair. Problem is new. Symptoms have improved. rachelle
--- NOTE | 2018-07-26 08:24 | ER ---
Nurse's Notes [facility] Name: Jann Alvarez Age: 28 yrs Sex: Male : 1990 Arrival Date: 07/26/2018 Time: 04:44 Bed 5 Private MD: Zac Coughlin Diagnosis: Abdominal tenderness;Vomiting;Elevated white blood cell count;Pleural effusion in conditions classified elsewhere;Hypokalemia;Hypomagnesemia Presentation: 07/26 04:58 Presenting complaint: Mother states: "he has been having a fever and vomiting recently. jd3 I also noticed a rash on his arms. He was recently discharge from the hospital with pancreatitis. His brother is sick with strep throat so we don't know if it is strep throat or his pancreatitis.". Transition of care: patient was not received from another setting of care. Onset of symptoms was July 26, 2018. Risk Assessment: Do you want to hurt yourself or someone else? Patient reports no desire to harm self or others. Initial Sepsis Screen: Does the patient meet any 2 criteria? No. Patient's initial sepsis screen is negative. Does the patient have a suspected source of infection? No. Patient's initial sepsis screen is negative. Care prior to arrival: None. 04:58 Method Of Arrival: Ambulatory [facility] 04:58 Acuity: KIMBER 3 jd3 Triage Assessment: 05:05 General: Appears in no apparent distress. uncomfortable, Behavior is calm, cooperative, cc3 appropriate for age. Pain: Complains of pain in left upper quadrant and right upper quadrant and epigastric area. EENT: No signs and/or symptoms were reported regarding the EENT system. Neuro: Level of Consciousness is awake, alert, obeys commands, Oriented to person, place, time, situation, Appropriate for age. Cardiovascular: Patient's skin is warm and dry. Respiratory: Airway is patent Respiratory effort is even, unlabored, Respiratory pattern is regular, symmetrical. : No signs and/or symptoms were reported regarding the genitourinary system. Derm: No signs and/or symptoms reported regarding the dermatologic system. Musculoskeletal: Circulation, motion, and sensation intact. Range of motion: intact in all extremities. 05:10 GI: Reports upper abdominal pain. jd3 Historical: - Allergies: 05:05 Zosyn; jd3 05:05 Vancomycin; jd3 05:05 meropenem; jd3 - Home Meds: 05:05 Dulcolax (bisacodyl) 5 mg Oral TbEC 1 tab [Active]; hydrocodone-acetaminophen 10-325 mg cc3 Oral tab 1 tab every 4 hours [Active]; nystatin 100,000 unit/gram Topical crea 2 times per day [Active]; polyethylene glycol 3350 17 gram Oral pwpk 1 packet once daily [Active]; - PMHx: 05:05 Lupus; Pancreatitis; jd3 05:05 Autism- Nonverbal; cc3 - PSHx: 05:05 ALLEY drain/removed; ERCP; gall bladder stent x1; jd3 - Immunization history:: Adult Immunizations up to date. - Social history:: Smoking status: Patient/guardian denies using tobacco. - Ebola Screening: : Patient negative for fever greater than or equal to 101.5 degrees Fahrenheit, and additional compatible Ebola Virus Disease symptoms. Screenin:05 Fall Risk Ambulatory Aid- None/Bed Rest/Nurse Assist (0 pts). Gait- Normal/Bed cc3 Rest/Wheelchair (0 pts) Mental Status- Oriented to own ability (0 pts). 05:10 Abuse screen: Denies threats or abuse. Nutritional screening: No deficits noted. jd3 Tuberculosis screening: No symptoms or risk factors identified. Assessment: 05:05 General: see triage assessment. cc3 06:16 Reassessment: Patient appears in no apparent distress at this time. Patient and/or cc3 family updated on plan of care and expected duration. Pain level reassessed. Patient is alert, oriented x 3, equal unlabored respirations, skin warm/dry/pink. 06:45 Reassessment: Patient appears in no apparent distress at this time. Patient and/or cc3 family updated on plan of care and expected duration. Pain level reassessed. Patient vomited and cannot tolerate the oral contrast, Dr. Briones informed. 07:00 Reassessment: RECD REPORT FROM DOLLY LEDEZMA. 28YO HM P/W ABD PAIN. ALL CURRENT ORDERS bp COMPLETED. 08:00 Reassessment: PT TO CT. ALL CURRENT ORDERS COMPLETED. bp 08:46 Reassessment: REPORT TO DOLLY LEDEZMA AT [facility]. TRANSPORT PENDING. bp 09:02 Reassessment: EMS AT B/S. bp Vital Signs: 05:06 BP 101 / 85; Pulse 125; Resp 19 S; Temp 98.2(O); Pulse Ox 95% on R/A; Weight 83.01 kg jd3 (R); Height 5 ft. 10 in. (177.80 cm) (R); Pain 4/10; 06:13 BP 108 / 86; Pulse 120; Resp 18 S; Pulse Ox 97% on R/A; cc3 08:22 BP 100 / 69; Pulse 112; Resp 19; Temp 98.2; Pulse Ox 96% ; bp 05:06 Body Mass Index 26.26 (83.01 kg, 177.80 cm) jd3 ED Course: 04:44 Patient arrived in ED. ds1 04:44 Zac Coughlin MD is Private Physician. ds1 04:47 Rush Briones MD is Attending Physician. rachelle 04:50 Usman Reinoso RN is Primary Nurse. jd3 05:01 Triage completed. jd3 05:05 Primary Nurse role handed off by Usman Reinoso, BRISA cc3 05:05 Dolly Aggarwal is Primary Nurse. cc3 05:07 Arm band placed on. jd3 05:10 Patient has correct armband on for positive identification. Bed in low position. Call j light in reach. Side rails up X2. Adult w/ patient. 05:43 Inserted saline lock: 22 gauge in right antecubital area, using aseptic technique. oe Blood collected. 05:54 XRAY Chest (1 view) In Process Unspecified. EDMS 06:32 Inserted saline lock: 22 gauge in left antecubital area, using aseptic technique. oe 06:[address] Briones with Soham Schwab at the [facility] transfer center. eb 07:00 Report given to BRISA Hill and BRISA Esposito. cc3 07:14 connected the GI production tester for [facility] with Dr. Briones for patient transfer eb consultation. 07:15 CT Abd/Pelvis - PO and IV Contrast In Process Unspecified. EDMS 07:23 CT completed. Patient moved back from [place]. em2 07:23 connected the hospitalist production tester for [facility] with Dr. Briones for patient eb transfer consultation. 08:02 administrative approval given by Sheri Milian RN esthetician/spa coordinator from [facility] transfer center/ patient has been accepted to [facility] bed 2046/ Dr. Whitaker has accepted the patient in transfer/ Report to be called to [phone]. 08:21 Vaibhav Salinas, RN is Primary Nurse. bp 08:49 No provider procedures requiring assistance completed. Patient transferred, IV remains bp in place. Administered Medications: Discontinued: NS 0.9% 1000 ml IV at 125 ml/hr continuous 05:25 Drug: NS 0.9% 1000 ml Route: IV; Rate: 1 bolus; Site: right antecubital; cc3 06:20 Follow up: Response: No adverse reaction; IV Status: Completed infusion; IV Intake: cc3 1000ml 05:26 Drug: fentaNYL (PF) 25 mcg Route: IVP; Site: right antecubital; cc3 06:10 Follow up: Response: No adverse reaction; Pain is decreased cc3 05:29 Drug: Pepcid 20 mg Route: IVP; Site: right antecubital; cc3 06:10 Follow up: Response: No adverse reaction; Pain is decreased cc3 05:35 Drug: Zofran 4 mg Route: IVP; Site: right antecubital; cc3 06:10 Follow up: Response: No adverse reaction; Nausea is decreased; Vomiting decreased cc3 06:00 Drug: NS 0.9% 1000 ml Route: IV; Rate: 125 ml/hr; Site: right antecubital; cc3 06:30 Drug: NS 0.9% with KCl 20 mEq/L 1000 ml Route: IV; Rate: 125 ml/hr; Site: right cc3 antecubital; 08:41 Follow up: IV Status: Infusion continued upon transfer bp 06:45 Drug: Magnesium Sulfate 1 grams Route: IVPB; Infused Over: 1 hrs; Site: left cc3 antecubital; 08:41 Follow up: IV Status: Completed infusion; IV Intake: 100ml bp 07:00 Drug: Flagyl 500 mg Volume: 100 ml; Route: IVPB; Rate: 200 ml/hr; Infused Over: 30 cc3 mins; Site: left antecubital; 08:42 Follow up: IV Status: Completed infusion; IV Intake: 100ml bp 08:30 Drug: Cipro 400 mg Volume: 200 ml; Route: IVPB; Infused Over: 60 mins; Site: right bp wrist; 08:44 Follow up: IV Status: Infusion continued upon transfer bp 08:30 Drug: NS 0.9% 1000 ml Route: IV; Rate: 1 bolus; Site: right forearm; bp 08:43 Follow up: IV Status: Completed infusion bp Intake: 06:20 IV: 1000ml; Total: 1000ml. cc3 08:41 IV: 100ml; Total: 1100ml. bp 08:42 IV: 100ml; Total: 1200ml. bp Outcome: 06:22 ER care complete, transfer ordered by MD. bush 08:47 Transferred by ground EMS to [facility]. bp 08:47 Condition: stable 08:47 Instructed on the need for transfer. 09:03 Patient left the ED. bp Signatures: Dispatcher [employer] EDMS Rush Briones MD MD cha Sanford, Jaqueline ds1 Zac oLpes em2 Alonso Snow Jonathon, RN RN Vaibhav Crabtree RN RN Christy Engel Charlene cc3 Corrections: (The following items were deleted from the chart) 05:49 05:05 Home Meds: None; john cc3
--- NOTE | 2018-07-26 10:49 | EKG ---
Test Date: 2018-07-26 Test Time: 05:18:16 Tractor Operator Helper: SLAVA MEASUREMENT RESULTS: Intervals: Rate: 127 SC: 128 QRSD: 86 QT: 314 QTc: 456 Laie: P: 29 SC: 128 QRS: -5 T: 31 INTERPRETIVE STATEMENTS: Sinus tachycardia Cannot rule out Anterior infarct, age undetermined Abnormal ECG Compared to ECG 05/30/2018 12:51:35 No significant changes Electronically Signed On 07-26-18 10:48:15 CDT by Bishop Wright
== END 2018-07-26 09:03 | disposition short-term general hospital (02) ==
LOC: ER 04:43
DX: R10.9 Unspecified abdominal pain (principal); D72.829 Elevated white blood cell count, unspecified; J90 Pleural effusion, not elsewhere classified; E87.6 Hypokalemia; E83.42 Hypomagnesemia; F84.0 Autistic disorder; Z88.1 Allergy status to other antibiotic agents; Z88.0 Allergy status to penicillin; R11.10 Vomiting, unspecified
CPT/HCPCS: 36415; 71045; 74177; 80048; 80076; 83605; 83690; 83735; 83880; 84145; 84484; 85025; 85610; 87040; 93005; 99285; J0744; J2405; J3010; J3475; J7030; Q9967

== ENCOUNTER 2018-08-27 10:16 | Emergency (ER) | payer OTHER ==
--- OUTSIDE RECORDS SUMMARY | 2018-08-27 10:21 | XMS REPORT | Clinical Summary ---
:1990 Author Organization [facility] Address [address] [place] [address] Care Team Providers Name Role Phone Zac [...] Start Date End Date Status nystatin Apply 15 g 0 06/16/2018 Active (MYCOSTATIN) 100,000 topically 2 0 unit/gram powder (two) times daily. HYDROcodone-acetamin Take 1 tablet 30 tablet 0 08/01/2018 Active ophen (NORCO 10-325) by mouth 3 10-325 mg per tablet (three) times daily as needed. Max Daily Amount: 3 tablets docusate sodium Take 1 capsule 30 capsule 0 06/17/2018 Discontinued (COLACE) 100 MG (100 mg total) 9 capsule by mouth daily for 30 days. HYDROcodone-acetamin Take 1 tablet 30 tablet 0 06/16/2018 ophen (NORCO 5-325) by mouth every 9 5-325 mg per tablet 8 (eight) hours as needed for up to 10 days. Max Daily Amount: 3 tablets polyethylene glycol Take 17 g by 14 each 0 06/16/2018 (GLYCOLAX) 17 gram mouth daily as 9 packet needed (constipation) for up to 3 days. HYDROcodone-acetamin Take 1 tablet 0 07/05/2018 Discontinued ophen (NORCO 10-325) by mouth 3 9 10-325 mg per tablet (three) times daily as needed. docusate sodium Take 1 capsule 30 capsule 0 07/19/2018 (COLACE) 100 MG (100 mg total) 9 capsule by mouth daily for 30 days. HYDROcodone-acetamin Take 1 tablet 30 tablet 0 07/19/2018 Discontinued ophen (NORCO 10-325) by mouth 3 9 10-325 mg per tablet (three) times daily as needed. Max Daily Amount: 3 tablets ondansetron Take 1 tablet 20 tablet 0 08/01/2018 (ZOFRAN-ODT) 4 MG (4 mg total) 9 disintegrating by mouth every tablet 8 (eight) hours as needed for up to 7 days. Active Problems Problem Noted Date Hypomagnesemia 07/28/2018 Pancreatitis 07/27/2018 Peripancreatic fluid collection 07/11/2018 Cholangitis 05/30/2018 Encounters Date Type Specialty Care Team Description 07/29/2018 Anesthesia Event Gastroenterology Elver Avendaño MD 07/29/2018 Surgery Gastroenterology Wilmer Santiago UPPER JESU Quinn MD 07/26/2018 Anesthesia Event Gastroenterology Mellissa Gusman MD 07/26/2018 Surgery Gastroenterology Tia Alegre ERCP,BALLOON Codey Dove MD SWEEPING 07/26/2018 Hospital Cardiology Julianne, [place] Cholangitis (Primary Dx); - Encounter MD Mariela Peripancreatic fluid collection; 08/01/2018 [place], Moderate protein-calorie malnutrition (HCC); MD Rios Chronic pancreatitis, unspecified pancreatitis type (HCC); Autism; Hypomagnesemia 07/26/2018 Telephone Internal Medicine Julianne, [place] Abdominal Pain MD Mariela 07/18/2018 Anesthesia Event Gastroenterology Cha Meza DO 07/18/2018 Surgery Gastroenterology Negro Billings UPPER ENDOSCOPY MD Luz Marina 07/16/2018 Surgery Gastroenterology Wilmer Santiago MD ENDOSCOPY,PANCREATIC NECROSECTOMY 07/16/2018 Anesthesia Event Gastroenterology Damian Ceron CRNA 07/14/2018 Travel 07/13/2018 Anesthesia Event Gastroenterology Alhaji Hall, ELECTRICAL REPAIRER 07/13/2018 Surgery Gastroenterology Uriah Childs UPPER ENDOSCOPY Argelia 07/11/2018 Surgery Gastroenterology Wilmer Santiago UPPER ENDOSCOPY,FNA MD Kai W/ULTRASOUND 07/11/2018 Anesthesia Event Gastroenterology Janet Reed, ELECTRICAL REPAIRER 07/09/2018 [facility] Derian, García, Pseudocyst of pancreas; - Encounter Medicine Autism disorder; 07/19/2018 Tina Oneill ALLEY drain, broken, initial encounter; MD Day Peripancreatic fluid collection; Al-Derrell Livingston Sepsis, due to unspecified organism (HCC); Yumi Fraser MD Adverse effect of drug, initial encounter; Chronic pancreatitis, unspecified pancreatitis type (HCC) 06/02/2018 Travel 05/31/2018 Anesthesia Event Gastroenterology Zachary Richmond MD 05/31/2018 Surgery Gastroenterology Wilmer Santiago ERCP,PAPILLOTOMY MD Kai 05/30/2018 [facility] Herve, Cholangitis; - Encounter Medicine Wyatt Acute pancreatitis, unspecified complication status, unspecified pancreatitis type; 06/16/2018 MD Mitchell Autism; Alphonso, Dipaben Requires supplemental oxygen; MD Onel Diarrhea, unspecified type; Oscar, Gallstone pancreatitis; Negin Connors, Prolonged pt (prothrombin time); Prolonged PTT; Kellen Toro MD Epigastric abdominal pain Jasmin Monsivais MD 05/30/2018 Telephone Critical Care Medicine Herve, [id number] Call Wyatt Medrano MD after 08/26/2017 Social History Tobacco Use Types Packs/Day Years Used Date Never Smoker Smokeless Tobacco: Never Used Sex Assigned at Date Recorded Not on file Job Start Date Occupation Industry Not on file Not on file Not on file Travel History Travel Start Travel End No recent travel history available. Last Filed Vital Signs Vital Sign Reading Time Taken Blood Pressure 132/82 08/01/2018 8:00 AM CDT Pulse 100 08/01/2018 9:59 AM CDT Temperature 36.2 C (97.2 F) 08/01/2018 8:00 AM CDT Respiratory Rate 18 08/01/2018 9:59 AM CDT Oxygen Saturation 96% 08/01/2018 9:59 AM CDT Inhaled Oxygen Concentration - - Weight 86.2 kg (190 lb 0.6 oz) 07/27/2018 5:00 AM CDT Height 177.8 cm (5' 10") 07/26/2018 10:36 AM CDT Body Mass Index 27.27 07/27/2018 5:00 AM CDT Plan of Treatment Not on file Implants Implanted Type Area Plant Breeder Device Identifier Shelf Expiration Model / Date Serial / Lot Solus [employer] 12/31/2020 [id number] / Implanted: Qty: 1 on 07/29/2018 by Wilmer Santiago MD / [id number] Explanted Type Area Plant Breeder Device Shelf Model / Identifier Expiration Serial / Date Lot Stent Bili Advanix [id number] - [id number] Stents-P [place] 03/10/2020 [id number] / Implanted: Qty: 1 on 05/31/2018 by Wilmer Santiago MD eriphera SCI: PERIPHERAL / Explanted: Qty: 1 on 07/26/2018 l INTERV Axios [id number] Electrocautery Enhanced Steny JOLIET [id number] / Implanted: Qty: 1 on 07/11/2018 by Wilmer Santiago MD SCIENTIFIC / Explanted: Qty: 1 on 07/29/2018 Procedures Procedure Name Priority Date/Time Associated Diagnosis Comments REPORT OF PROCEDURE - 08/02/2018 1:00 ENDOSCOPY SCAN PM CDT RHYTHM STRIP - SCAN 08/02/2018 1:00 PM CDT CBC W/PLT COUNT & AUTO Routine 08/01/2018 4:51 Results for this DIFFERENTIAL AM CDT procedure are in the results section. CBC W/PLT COUNT & AUTO Routine 08/01/2018 4:51 Results for this DIFFERENTIAL AM CDT procedure are in the results section. CALCIUM, IONIZED Routine 08/01/2018 4:51 Results for this AM CDT procedure are in the results section. COMPREHENSIVE Routine 08/01/2018 4:51 Results for this METABOLIC PANEL AM CDT procedure are in the results section. REPORT OF PROCEDURE - 07/31/2018 8:15 ENDOSCOPY URL AM CDT CALCIUM, IONIZED Routine 07/31/2018 5:13 Results for this AM CDT procedure are in the results section. CBC W/PLT COUNT & AUTO Routine 07/31/2018 4:57 Results for this DIFFERENTIAL AM CDT procedure are in the results section. MAGNESIUM Routine 07/31/2018 4:57 Results for this AM CDT procedure are in the results section. CBC W/PLT COUNT & AUTO Routine 07/31/2018 4:57 Results for this DIFFERENTIAL AM CDT procedure are in the results section. PHOSPHORUS Routine 07/31/2018 4:57 Results for this AM CDT procedure are in the results section. BASIC METABOLIC PANEL Routine 07/31/2018 4:57 Results for this (7) AM CDT procedure are in the results section. COMPREHENSIVE Routine 07/30/2018 6:19 Results for this METABOLIC PANEL AM CDT procedure are in the results section. UPPER 07/29/2018 4:00 Pancreatic ENDOSCOPY,PANCREATIC PM CDT pseudocyst NECROSECTOMY UPPER ENDOSCOPY 07/29/2018 4:00 Pancreatic PM CDT pseudocyst CBC W/PLT COUNT & AUTO Routine 07/29/2018 5:52 Results for this DIFFERENTIAL AM CDT procedure are in the results section. CALCIUM, IONIZED Routine 07/29/2018 5:52 Results for this AM CDT procedure are in the results section. COMPREHENSIVE Routine 07/29/2018 5:52 Results for this METABOLIC PANEL AM CDT procedure are in the results section. LACTIC ACID, VENOUS STAT 07/29/2018 5:52 Results for this AM CDT procedure are in the results section. PHOSPHORUS Routine 07/29/2018 5:52 Results for this AM CDT procedure are in the results section. MAGNESIUM Routine 07/29/2018 5:52 Results for this AM CDT procedure are in the results section. CBC W/PLT COUNT & AUTO Routine 07/29/2018 5:52 Results for this DIFFERENTIAL AM CDT procedure are in the results section. REPORT OF PROCEDURE - 07/28/2018 5:36 ENDOSCOPY URL PM CDT US ABDOMEN LIMITED Routine 07/28/2018 3:50 Results for this PM CDT procedure are in the results section. CBC W/PLT COUNT & AUTO Routine 07/28/2018 6:10 Results for this DIFFERENTIAL AM CDT procedure are in the results section. LACTIC ACID, VENOUS STAT 07/28/2018 6:10 Results for this AM CDT procedure are in the results section. PHOSPHORUS Routine 07/28/2018 6:10 Results for this AM CDT procedure are in the results section. MAGNESIUM Routine 07/28/2018 6:10 Results for this AM CDT procedure are in the results section. BASIC METABOLIC PANEL Routine 07/28/2018 6:10 Results for this (7) AM CDT procedure are in the results section. CBC W/PLT COUNT & AUTO Routine 07/28/2018 6:10 Results for this DIFFERENTIAL AM CDT procedure are in the results section. PHOSPHORUS Routine 07/27/2018 5:17 Results for this PM CDT procedure are in the results section. MAGNESIUM Routine 07/27/2018 5:17 Results for this PM CDT procedure are in the results section. CBC W/PLT COUNT & AUTO Routine 07/27/2018 4:12 Results for this DIFFERENTIAL AM CDT procedure are in the results section. PHOSPHORUS Routine 07/27/2018 4:12 Results for this AM CDT procedure are in the results section. MAGNESIUM Routine 07/27/2018 4:12 Results for this AM CDT procedure are in the results section. BASIC METABOLIC PANEL Routine 07/27/2018 4:12 Results for this (7) AM CDT procedure are in the results section. CBC W/PLT COUNT & AUTO Routine 07/27/2018 4:12 Results for this DIFFERENTIAL AM CDT procedure are in the results section. POCT-GLUCOSE METER Routine 07/26/2018 8:42 Results for this PM CDT procedure are in the results section. FL ERCP Routine 07/26/2018 8:37 Results for this PM CDT procedure are in the results section. ERCP,STENT REMOVAL 07/26/2018 5:00 Acute pancreatitis, PM CDT unspecified complication status, unspecified pancreatitis type UPPER ENDOSCOPY 07/26/2018 5:00 Acute pancreatitis, PM CDT unspecified complication status, unspecified pancreatitis type PROCEDURE W/ C-ARM 07/26/2018 5:00 Acute pancreatitis, PM CDT unspecified complication status, unspecified pancreatitis type ERCP,BALLOON SWEEPING 07/26/2018 5:00 Acute pancreatitis, PM CDT unspecified complication status, unspecified pancreatitis type CBC W/PLT COUNT & AUTO Routine 07/26/2018 4:58 Results for this DIFFERENTIAL PM CDT procedure are in the results section. COMPREHENSIVE Routine 07/26/2018 4:58 Results for this METABOLIC PANEL PM CDT procedure are in the results section. CBC W/PLT COUNT & AUTO Routine 07/26/2018 4:58 Results for this DIFFERENTIAL PM CDT procedure are in the results section. RAPID STREP A SCREEN Routine 07/26/2018 3:24 Results for this PM CDT procedure are in the results section. BLOOD CULTURE Routine 07/26/2018 1:42 Results for this PM CDT procedure are in the results section. REPORT OF PROCEDURE - 07/24/2018 7:50 ENDOSCOPY [...] CULTURE Routine 05/30/2018 8:44 PM CDT after 08/26/2017 Results EKG-SCANNED (08/02/2018 1:00 PM CDT) Narrative Performed At RHYTHM STRIP - SCAN (08/02/2018 1:00 PM CDT)Only the most recent of3 resultswithin the time period is included. Narrative Performed At Calcium, Ionized (08/01/2018 4:51 AM CDT)Only the most recent of8 resultswithin the time period is included. Calcium, Ion 1.01 (L) 1.12 - 1.27 mmol/L [facility] pH, Blood 7.50 [facility] Specimen Blood Performing Organization Address City/State/Zipcode Phone Number [facility] [address] [place] [address] CENTER CBC with platelet count + automated diff (08/01/2018 4:51 AM CDT)Only the most recent of30 resultswithin the time period is included. WBC 7.4 3.5 - 10.5 K/L [facility] RBC 3.18 (L) 4.63 - 6.08 M/L [facility] Hemoglobin 9.0 (L) 13.7 - 17.5 GM/DL [facility] Hematocrit 28.3 (L) 40.1 - 51.0 % [facility] MCV 89.0 79.0 - 92.2 fL [facility] MCH 28.3 25.7 - 32.2 pg [facility] MCHC 31.8 (L) 32.3 - 36.5 GM/DL [facility] RDW 15.3 (H) 11.6 - 14.4 % [facility] Platelets 339 150 - 450 K/CU MM [facility] MPV 10.2 9.4 - 12.4 fL [facility] nRBC 0 0 - 0 /100 WBC [facility] % Neutros 67 % [facility] % Lymphs 19 % [facility] % Monos 11 % [facility] % Eos 3 % [facility] % Baso 0 % [facility] # Neutros 4.94 1.78 - 5.38 K/L [facility] # Lymphs 1.38 1.32 - 3.57 K/L [facility] # Monos 0.82 0.30 - 0.82 K/L [facility] # Eos 0.20 0.04 - 0.54 K/L [facility] # Baso 0.02 0.01 - 0.08 K/L [facility] Immature Granulocytes-Relative 1 0 - 1 % [facility] Specimen Blood Performing Organization Address City/State/Zipcode Phone Number [facility] [address] [place] [address] CENTER Comprehensive metabolic panel (08/01/2018 4:51 AM CDT)Only the most recent of4 resultswithin the time period is included. Protein, Total 5.8 (L) 6.0 - 8.3 gm/dL [facility] Albumin 2.5 (L) 3.5 - 5.0 g/dL [facility] Alkaline Phosphatase 56 40 - 150 U/L [facility] Total Bilirubin 0.3 0.2 - 1.2 mg/dL [facility] Sodium 138 136 - 145 meq/L [facility] Potassium 3.7 3.5 - 5.1 meq/L [facility] Chloride 104 98 - 107 meq/L [facility] CO2 25 22 - 29 meq/L [facility] BUN 3 (L) 7 - 21 mg/dL [facility] Creatinine 0.56 (L) 0.57 - 1.25 mg/dL [facility] Glucose 82 70 - 105 mg/dL [facility] Calcium 8.1 (L) 8.4 - 10.2 mg/dL [facility] AST 15 5 - 34 U/L [facility] ALT 9 6 - 55 U/L [facility] EGFR 172Comment: ESTIMATED mL/min/1.73 sq m [facility] GFR IS NOT ACCURATE [facility] CREATININE CLEARANCE IN PREDICTING GLOMERULAR FILTRATION RATE. ESTIMATED GFR IS NOT APPLICABLE FOR DIALYSIS PATIENTS. Specimen Blood Performing Organization Address [facility] Cent[facility]ome Phone Number [address] [phone] [place] REPORT OF PROCEDURE - ENDOSCOPY URL (07/31/2018 8:15 AM CDT) Narrative Performed At Phosphorus (07/31/2018 4:57 AM CDT)Only the most recent of9 resultswithin the time period is included. Phosphorus 3.5 2.3 - 4.7 mg/dL [facility] Specimen Blood Performing Organization Address [facility] Phone Number [address] [phone] CENTER Magnesium (07/31/2018 4:57 AM CDT)Only the most recent of28 resultswithin the time period is included. Magnesium 1.3 (L) 1.6 - 2.6 mg/dL [facility] Specimen Blood Performing Organization Address [facility] Phone Number [address] [phone] [place] Basic Metabolic Panel (07/31/2018 4:57 AM CDT)Only the most recent of31 resultswithin the time period is included. Sodium 136 136 - 145 meq/L [facility] Potassium 3.4 (L) 3.5 - 5.1 meq/L [facility] Chloride 104 98 - 107 meq/L [facility] CO2 25 22 - 29 meq/L [facility] BUN 3 (L) 7 - 21 mg/dL [facility] Creatinine 0.55 (L) 0.57 - 1.25 mg/dL [facility] Glucose 88 70 - 105 mg/dL [facility] Calcium 8.1 (L) 8.4 - 10.2 mg/dL [facility] EGFR 176Comment: ESTIMATED GFR IS mL/min/1.73 sq m [facility] NOT ACCURATE [facility]AT[facility] CLEARANCE IN PREDICTING GLOMERULAR FILTRATION RATE. ESTIMATED GFR IS NOT APPLICABLE FOR DIALYSIS PATIENTS. Specimen Blood Performing Organization Address City/State/Zipcode Phone Number [address] [address] [phone] CENTER Lactic acid, venous, Daily (07/29/2018 5:52 AM CDT)Only the most recent of5 resultswithin the time period is included. Lactate, Venous 0.8 0.5 - 2.2 mmol/L [facility] Specimen Blood Performing Organization Address City/[facility]/Zipcode Phone Number [address] [address] [phone] CENTER REPORT OF PROCEDURE - ENDOSCOPY URL (07/28/2018 5:36 PM CDT) Narrative Performed At US abdomen limited (07/28/2018 3:50 PM CDT)Only the most recent of2 resultswithin the time period is included. Specimen Narrative Performed At FINAL REPORT [facility] Limited Abdominal ultrasound. Clinical history: fever, abdominal pain with biliary stent in place Comparison study: CT scan dated July 13, 2018 and ultrasound dated June 01, 2018 Findings: The visualized liver is normal in appearance with a normal echotexture. The left lobe is not well seen. It measures 14.6 cm in span. There is no evidence of intra or extrahepatic biliary dilatation with the common bile duct measuring four mm in size. The main portal vein diameter is 0.9 cm.The gallbladder is normal in appearance with no gallstones and no evidence of pericholecystic fluid. The pancreas is not well seen. The right kidney measures 10.1 x 6.0 x 5.7 cm. No ascites is present.The proximal aorta is unremarkable. The remainder of the abdomen was not assessed. Impression: 1. Pancreas not well seen. 2. Left lobe of liver not well seen. 3. No other significant abnormality. Signed: Michael Briones MD Report Verified Date/Time:07/28/2018 16:51:39 Reading Location: [address] Ortho Consult Reading Room Procedure Note Interface, External Ris In - 07/28/2018 4:53 PM CDT FINAL REPORT Limited Abdominal ultrasound. Clinical history: fever, abdominal pain with biliary stent in place Comparison study: CT scan dated July 13, 2018 and ultrasound dated June 01, 2018 Findings: The visualized liver is normal in appearance with a normal echotexture. The left lobe is not well seen. It measures 14.6 cm in span. There is no evidence of intra or extrahepatic biliary dilatation with the common bile duct measuring four mm in size. The main portal vein diameter is 0.9 cm. The gallbladder is normal in appearance with no gallstones and no evidence of pericholecystic fluid. The pancreas is not well seen. The right kidney measures 10.1 x 6.0 x 5.7 cm. No ascites is present. The proximal aorta is unremarkable. The remainder of the abdomen was not assessed. Impression: 1. Pancreas not well seen. 2. Left lobe of liver not well seen. 3. No other significant abnormality. Signed: Michael Briones MD Report Verified Date/Time: 07/28/2018 16:51:39 Reading Location: [facility] [id number] Ortho Consult Reading Room Performing Organization Address City/State/Zipcode Phone Number [facility] POC-Glucose meter (07/26/2018 8:42 PM CDT)Only the most recent of33 resultswithin the time period is included. POC-Glucose Meter 146 (H)Comment: TESTED AT 70 - 110 mg/dL [facility] [address] [facility] [address] Specimen Blood Performing Organization Address City/[facility] Centercode Phone Number [facility] [address] [place], [place] [phone] [place] Endoscopic Retrograde Cholangiopancreatography (07/26/2018 8:37 PM CDT)Only the most recent of2 resultswithin the time period is included. Specimen Narrative Performed At FINAL REPORT GE RIS Examination: ERCP 4 fluoroscopic spot views were obtained during the procedure by the ordering service. Images are nondiagnostic as no radiologist was present at the time of imaging. Fluoroscopic time was 49.6 seconds. Please see the procedure report for details. Signed: Kevin Golden MD Report Verified Date/Time:07/26/2018 22:28:43 Reading Location: [address] Reading Room Procedure Note Interface, External Ris In - 07/26/2018 10:30 PM CDT FINAL REPORT Examination: ERCP 4 fluoroscopic spot views were obtained during the procedure by the ordering service. Images are nondiagnostic as no radiologist was present at the time of imaging. Fluoroscopic time was 49.6 seconds. Please see the procedure report for details. Signed: Kevin Golden MD Report Verified Date/Time: 07/26/2018 22:28:43 Reading Location: [address] Reading Room Performing Organization Address [facility] Centercode Phone Number GE RIS Rapid Strep A screen (07/26/2018 3:24 PM CDT) Strep A Ag Negative [facility] Specimen Throat Performing Organization Address [facility]/Zipcode Phone Number [address] [address] [place] Blood culture (07/26/2018 1:42 PM CDT)Only the most recent of9 resultswithin the time period is included. Result No growth in 5 days [facility] Specimen Blood Performing Organization Address [facility]/State/Zipcode Phone Number [place] [phone] [place] [address] [place] REPORT OF PROCEDURE - ENDOSCOPY URL (07/24/2018 7:50 AM CDT) Narrative Performed At Potassium (07/17/2018 2:01 PM CDT) Potassium 3.7Comment: Specimen slightly 3.5 - 5.1 meq/L [facility] hemolyzed [facility] Specimen Blood Narrative Performed At Check Serum Potassium level 2 hours after [facility] oral potassium replacement completed or 30 min after intravenous potassium replacement. Performing Organization Address [facility]/Zipcode Phone Number [address] [address] [phone] [place] PT/aPTT (07/16/2018 4:16 AM CDT)Only the most recent of18 resultswithin the time period is included. Protime 17.0 (H) 11.9 - 14.2 seconds [facility] INR 1.5 <=5.9 [facility] PTT 34.1 22.5 - 36.0 seconds [facility] Specimen Blood Narrative Performed At Effective 07/03/2018: PT Reference Range [facility] Change New: 11.9-14.2Previous: 11.7-14.7 RECOMMENDED COUMADIN/WARFARIN INR THERAPY RANGES STANDARD DOSE: 2.0-3.0Includes: PROPHYLAXIS for venous thrombosis, systemic embolization; TREATMENT for venous thrombosis and/or pulmonary embolus. HIGH RISK: Target INR is 2.5-3.5 for patients wiht mechanical heart valves. Performing Organization Address City/State/Zipcode Phone Number [address] [address] [phone] [place] Prothrombin time/INR (07/16/2018 4:16 AM CDT)Only the most recent of18 resultswithin the time period is included. Protime 17.0 (H) 11.9 - 14.2 seconds [facility] INR 1.5 <=5.9 [facility] Specimen Blood Narrative Performed At Effective 07/03/2018: PT Reference Range [facility] Change New: 11.9-14.2Previous: 11.7-14.7 RECOMMENDED COUMADIN/WARFARIN INR THERAPY RANGES STANDARD DOSE: 2.0-3.0Includes: PROPHYLAXIS for venous thrombosis, systemic embolization; TREATMENT for venous thrombosis and/or pulmonary embolus. HIGH RISK: Target INR is 2.5-3.5 for patients wiht mechanical heart valves. Performing Organization Address City/State/Zipcode Phone Number [facility] [address] [place] [address] CENTER XR chest 1 view portable / bedside (07/15/2018 10:25 AM CDT)Only the most recent of7 resultswithin the time period is included. Specimen Narrative Performed At FINAL REPORT GE [facility] EXAM: Chest one view COMPARISON: July 13, [...] MD Report Verified Date/Time:07/15/2018 10:57:23 Reading Location: [facility] Radiology Reading Room Procedure Note Interface, External [...] Report Verified Date/Time: 07/15/2018 10:57:23 Reading Location: [facility] Radiology Reading Room Performing Organization Address [facility] Phone Number GE RIS Clostridium difficile GDH Toxin (07/14/2018 8:52 PM CDT)Only the most recent of2 resultswithin the time period is included. C. Difficle Toxin Negative Negative [facility] C. Difficile GDH Antigen NegativeComment: No Negative [facility] indication of Clostridium [facility] difficile infection and no colonization. Discontinue enteric isolation and therapy. Specimen Stool Narrative Performed At Testing performed by [employer] Rapid Cassette [facility] Assay.For GDH, published sensitivity of the assay is 98.7% compared to cytotoxicity testing.For Toxin AB, published sensitivity is 87.8% and specificity 99.4% compared to cytotoxicity testing. Verification of kit performance was done by the [facility] Microbiology Lab prior to clinical use. Performing Organization Address [facility] Centercome Phone Number [address] [address] [phone] CENTER Triglycerides (07/14/2018 5:27 PM CDT) Triglycerides 125 mg/dL [facility] Specimen Blood Narrative Performed At TRIGLYCERIDE REFERENCE RANGE [facility] Low Risk<150 Borderline Risk 150-199 High Dack076-149 Very High Risk >=500 Performing Organization Address [facility] Centercome Phone Number [address] [address] [place] Hepatic function panel (07/14/2018 8:32 AM CDT)Only the most recent of22 resultswithin the time period is included. Protein, Total 5.1 (L) 6.0 - 8.3 gm/dL [facility] Albumin 2.3 (L) 3.5 - 5.0 g/dL [facility] Total Bilirubin 0.3 0.2 - 1.2 mg/dL [facility] Bilirubin, Direct 0.3 0.1 - 0.5 mg/dL [facility] Alkaline Phosphatase 57 40 - 150 U/L [facility] AST 11 5 - 34 U/L [facility] ALT <6 (L) 6 - 55 U/L [facility] Specimen Blood Performing Organization Address City/State/Zipcode Phone Number [facility] [address] [place] [address] [phone] CENTER REPORT OF PROCEDURE - ENDOSCOPY URL (07/13/2018 4:00 PM CDT) Narrative Performed At CT abdomen/pelvis without iv contrast (07/13/2018 4:56 AM CDT) Specimen Narrative Performed At FINAL REPORT Xobni CT scan of the abdomen and pelvis. [...] MD Report Verified Date/Time:07/13/2018 09:34:48 Reading Location: [address] Ortho Consult Reading Room Procedure Note Interface, External [...] Report Verified Date/Time: 07/13/2018 09:34:48 Reading Location: [facility] C013X [facility] Consult Reading Room Performing Organization Address City/State/Zipcode Phone Number GE RIS REPORT OF PROCEDURE - ENDOSCOPY URL (07/12/2018 12:46 PM CDT) Narrative Performed At POC-Lactic Acid, Venous (07/12/2018 2:03 AM CDT) POC-Lactic Acid, Venous 1.5Comment: TESTED AT 0.9 - 1.7 mmol/L [facility] [address] [place] [address] Specimen Blood Performing Organization Address City/State/Zipcode Phone Number [address] [address] [phone] CENTER POCT-HEMATOCRIT (07/12/2018 1:58 AM CDT) POC-Hematocrit 37 (L)Comment: TESTED AT 40 - 50 % [address] [address] Specimen Blood Performing Organization Address City/[facility]/Zipcode Phone Number [address] [address] CENTER POCT-HEMOGLOBIN (07/12/2018 1:58 AM CDT) POC-Hemoglobin 12.6 (L)Comment: TESTED AT 13.0 - 16.8 g/dL [address] [place] [address]BJKAKZ AT [address] [address] Specimen Blood Performing Organization Address [facility] Centercode Phone Number [address] [address] [phone] CENTER POCT-GLUCOSE (07/12/2018 1:58 AM CDT) POC-Glucose 106Comment: TESTED AT [facility] 70 - 110 mg/dL [address] [address] Specimen Blood Performing Organization Address City/[facility] Centercode Phone Number [address] [address] CENTER POC-Sodium (07/12/2018 1:58 AM CDT) POC-Sodium 139Comment: TESTED AT [facility] 135 - 148 meq/L [address] [address] Specimen Blood Performing Organization Address City/[facility]/Zipcode Phone Number [address] [address] CENTER POC-Potassium (07/12/2018 1:58 AM CDT) POC-Potassium 3.7Comment: TESTED AT [facility] 3.6 - 5.5 meq/L [address] [address] Specimen Blood Performing Organization Address City/[facility]/Zipcode Phone Number [address] [place] [address] [place] POC-Calcium ionized (07/12/2018 1:58 AM CDT) POC-Calcium Ionized 1.15Comment: TESTED AT 1.12 - 1.27 mmol/L [address] [address] Specimen Blood Performing Organization Address City/[facility]/Zipcode Phone Number [address] [address] [place] POC-Blood gases, venous (07/12/2018 1:58 AM CDT) Temp. Celsius-POC 38.4 [facility] FIO2-POC 21Comment: TESTED AT [address] [address] pH, Venous-POC 7.362 7.320 - 7.420 [facility] PCO2, Venous-POC 50.1 41.0 - 51.0 mm Hg [facility] PO2, Venous-POC 21.0 (L) 25.0 - 40.0 mm Hg [facility] SO2, Venous-POC 29.0 (L) 40.0 - 70.0 % [facility] HCO3, Venous-POC 28.0 21.0 - 29.0 meq/L [facility] BE, Venous-POC 3.0 -2.0 - 3.0 meq/L [facility] Specimen Blood Performing Organization Address City/State/Zipcode Phone Number [address] [address] [phone] [place] XR abdomen / KUB 1 view (07/12/2018 1:45 AM CDT) Specimen Narrative Performed At FINAL REPORT GE [facility] CLINICAL HISTORY: UPRIGHT assess for perf; abdomoinal [...] Verified Date/Time: 07/12/2018 02:12:57 Performing Organization Address City/State/Zipcode Phone Number GE RIS ECG 12 lead (07/12/2018 1:32 AM CDT) Specimen Narrative Performed At Ventricular Rate 124 BPM GE MUSE Atrial Rate 124 BPM P-R Interval 156 ms QRS Duration 78 ms Q-T Interval 318 ms QTC Calculation(Bazett) 456 ms P Merrillan 30 degrees R Merrillan 24 degrees T Merrillan 30 degrees Sinus tachycardia Otherwise normal ECG No previous ECGs available Confirmed by MD HARVINDER, IHAB ([id number]) on 07/12/2018 7:47:47 AM Procedure Note Interface, External Ris In - 07/12/2018 7:47 AM CDT Ventricular Rate 124 BPM Atrial Rate 124 BPM P-R Interval 156 ms QRS Duration 78 ms Q-T Interval 318 ms QTC Calculation(Bazett) 456 ms P Merrillan 30 degrees R Merrillan 24 degrees T Merrillan 30 degrees Sinus tachycardia Otherwise normal ECG No previous ECGs available Confirmed by MD HARVINDER, IHAB ([id number]) on 07/12/2018 7:47:47 AM Performing Organization Address City/State/Zipcode Phone Number GE MUSE Vancomycin level, trough (07/11/2018 1:52 PM CDT)Only the most recent of3 resultswithin the time period is included. Vancomycin Tr 7.1 (L) 10.0 - 20.0 ug/mL [facility] Specimen Blood Narrative Performed At If vancomycin trough level > 20 mcg/mL, hold [facility] next vancomycin dose, and contact MD and pharmacist. Performing Organization Address [facility] Centercome Phone Number [address] [address] [phone] [place] aPTT (07/10/2018 10:45 AM CDT) PTT 47.0 (H) 22.5 - 36.0 seconds [facility] Specimen Blood Performing Organization Address [facility] Phone Number [address] [address] [place] Wound culture + gram stain (07/10/2018 1:22 AM CDT) Result 4+ Staphylococcus aureus (A) [facility] Gram Stain Result 4+ White blood cells seen [facility] Gram Stain Result 1+ gram positive cocci in pairs [facility] Specimen Wound Narrative Performed At 4+ Skin matty [facility] Organism Antibiotic Method Susceptibility Staphylococcus aureus Clindamycin 0.25: Susceptible Staphylococcus aureus Erythromycin <=0.25: Susceptible Staphylococcus aureus Linezolid 2: Susceptible Staphylococcus aureus Oxacillin <=0.25: Susceptible Staphylococcus aureus Rifampin <=0.5: Susceptible Staphylococcus aureus Tetracycline <=1: Susceptible Staphylococcus aureus Trimethoprim + Sulfamethoxazole <=10: Susceptible Staphylococcus aureus Vancomycin 1: Susceptible Performing Organization Address [facility] Centercome Phone Number [address] [address] [place] Beta-2 glycoprotein antibodies (06/14/2018 4:34 PM CDT) B2 Glcoprotein Ab Profile Refer to individual [facility] B2-Glycoprotein IgG, IgM INCORPORATED and IgA results. Specimen Blood Narrative Performed At Performing Organization Address City/State/Zipcode Phone Number [facility], [place] [address] INCORPORATED [address] [facility] Hexagonal Phospholipid (06/13/2018 12:20 PM CDT) Hexagonal Phospholipid Positive [facility] Specimen Blood Performing Organization Address City/State/Zipcode Phone Number [facility] [address] [place] [address] [phone] [place] Lupus Anticoagulant Screen with Reflex To Confirmatory (06/13/2018 12:20 PM CDT) DRVV Screen Ratio 1.39 (H) <1.20 [facility] DRVV Confirm Ratio 1.21 [facility] Interpretations Positive screen for Lupus [facility] Anticoagulant with [facility] hexagonal phospholipid confirmation. Suggest repeat testing in 12 weeks and when patient not receiving anticoagulant therapy. Protime 19.6 (H) 11.7 - 14.7 seconds [facility] INR 1.7 <=5.9 [facility] PTT 57.5 (H) 22.5 - 36.0 seconds [facility] PTT-LA 61.5 (H) 32.0 - 41.8 [facility] Pathologist: Christy Smith MD [facility] (electronic signature) [facility] Specimen Blood Performing Organization Address City/[facility]/Zipcode Phone Number [address] [address] [phone] [place] 1:1 MIXING STUDY, NON-INCUBATED (06/13/2018 12:20 PM CDT) Protime 19.6 (H) 11.7 - 14.7 seconds [facility] PTT 57.5 (H) 22.5 - 36.0 seconds [facility] PT 02/05 Mix 14.4 11.7 - 14.7 SECS [facility] PTT 02/05 Mix 41.9 (H) 22.5 - 36.0 SECS [facility] Specimen Blood Performing Organization Address City/[facility] Centercode Phone Number [address] [address] [place] Cardiolipin Antibodies, IgG and IgM (06/13/2018 12:20 PM CDT) Anticardiolipin IgG <1.6 <20.0 GPL [facility] Anticardiolipin IgM 0.2 <20.0 MPL [facility] Specimen Blood Narrative Performed At Anticardiolipin IgG Result Interpretation: [facility] <20.0 GPL Normal >/=20.0 GPL Positive Anticardiolipin IgM Result Interpretation: <20.0 MPL Normal >/=20.0 MPL Positive Performing Organization Address City/[facility] Centercome Phone Number [address] [address] [place] Thrombin time (06/13/2018 12:20 PM CDT) Thrombin Time 17.2 13.8 - 20.0 secs [facility] Specimen Blood Performing Organization Address City/[facility] Centercode Phone Number [address] [address] CENTER Fibrinogen (06/13/2018 12:20 PM CDT)Only the most recent of2 resultswithin the time period is included. Fibrinogen 762 (H) 225 - 434 mg/dl [facility] Specimen Blood Performing Organization Address City/[facility] Centercode Phone Number [address] [address] [phone] CENTER B-type Natriuretic Factor (BNP) (06/11/2018 2:51 PM CDT) BNP <10 0 - 100 pg/mL [facility] Specimen Blood Performing Organization Address City/State/Zipcode Phone Number [facility] [address] [place] [address] CENTER REPORT OF PROCEDURE - ENDOSCOPY URL (06/07/2018 3:15 PM CDT) Narrative Performed At Urinalysis w/Microscopic + Reflex to Culture (06/07/2018 1:47 PM CDT)Only the most recent of2 resultswithin the time period is included. Color, UA Yellow [facility] Clarity, UA Clear [facility] Specific Combs, UA 1.012 1.001 - 1.035 [facility] pH, UA 6.5 5.0 - 8.0 [facility] Protein, UA 20 mg/dL (A) Negative [facility] Glucose, UA Negative Negative [facility] Ketones, UA 40 mg/dL (A) Negative [facility] Bilirubin, UA Negative Negative [facility] Blood, UA Trace (A) Negative [facility] Nitrite, UA Negative Negative [facility] Leukocytes, UA Negative Negative [facility] Urobilinogen, UA 0.2 0.2 - 1.0 mg/dL [facility] RBC, UA 2 /HPF [facility] WBC, UA 3 /HPF [facility] Mucus Rare [facility] Specimen Source [facility] Specimen Urine Performing Organization Address City/State/Zipcode Phone Number [facility] [address] [place] [address] [phone] [place] Body fluid culture + gram stain (06/07/2018 1:42 PM CDT) Result No growth [facility] Gram Stain Result <1+ White blood cells seen [facility] Gram Stain Result No organisms seen [facility] Specimen Body Fluid Performing Organization Address City/[facility]/Zipcode Phone Number [facility] [address] [place], [place] [address] [phone] CENTER Incubated 1:1 Mixing Study (06/07/2018 11:47 AM CDT) Immediate PT 22.5 (H) 11.7 - 14.7 [facility] Immediate PTT 54.8 (H) 22.5 - 36.0 [facility] Immediate 1:1 Mix PT 14.1 11.7 - 14.7 [facility] Immediate 1:1 Mix PTT 40.9 (H) 22.5 - 36.0 [facility] 1:1 MIX, 1 HOUR INC PT 14.9 seconds [facility] 1:1 MIX, 1 HOUR INC PTT 43.6 seconds [facility] MIXING STUDY PATHOLOGIST Prolonged PT and PTT [facility] INTERPRETATION with complete [facility] correction of PT and incomplete correction of PTT, 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 Request for percutaneous image guided drainage catheter placement. COMPARISON: June 05, 2018 TECHNIQUE: CT-guided placement of 10 Zambian drainage catheter in left upper quadrant peripancreatic [...] and the introducer needle removed. An 8 Zambian and then 10 Zambian dilator were used. Then, a 10 Zambian multisidehole drainage catheter was placed over the [...] 45 minutes. IMPRESSION: CT-guided placement of 10 Zambian drainage catheter in left upper quadrant peripancreatic collection. Thin dark fluid was encountered. Signed: Leo Felton MD Report Verified Date/Time:06/06/2018 18:06:54 Reading Location: [facility] B1 C013Y CT Body Reading Room Procedure Note Interface, External Ris In - 06/06/2018 6:09 PM CDT FINAL REPORT INDICATION: 28-year-old male with acute pancreatitis and acute necrotic collection. Request for percutaneous image guided drainage catheter placement. COMPARISON: June 05, 2018 TECHNIQUE: CT-guided placement of 10 Zambian drainage catheter in left upper quadrant peripancreatic [...] and the introducer needle removed. An 8 Zambian and then 10 Zambian dilator were used. Then, a 10 Zambian multisidehole drainage catheter was placed over the [...] 45 minutes. IMPRESSION: CT-guided placement of 10 Zambian drainage catheter in left upper quadrant peripancreatic collection. Thin dark fluid was encountered. Signed: Leo Felton MD Report Verified Date/Time: 06/06/2018 18:06:54 Reading Location: [facility] C013Y CT Body Reading Room Performing Organization Address City/State/Zipcode Phone Number Xobni CT abdomen/pelvis with IV contrast (06/05/2018 11:18 AM CDT) Specimen Narrative Performed At FINAL REPORT Xobni CT abdomen and pelvis with contrast History: [...] MD Report Verified Date/Time:06/05/2018 12:46:00 Reading Location: [facility] Diagnostic Imaging Reading Room - [place] [address] Procedure Note Interface, External Ris In - [...] Report Verified Date/Time: 06/05/2018 12:46:00 Reading Location: [facility] Diagnostic Imaging Reading Room - [place] [address] Performing Organization Address City/State/Zipcode Phone Number RIS Manual Differential (06/05/2018 3:14 AM CDT)Only the most recent of4 resultswithin the time period is included. % Neutros 75 % [facility] % Lymphs 11 % [facility] % Monos 9 % [facility] % Eos 5 % [facility] # Neutros 18.08 (H) 1.78 - 5.38 K/ul [facility] # Lymphs 2.65 1.32 - 3.57 K/ul [facility] # Monos 2.17 (H) 0.30 - 0.82 K/uL [facility] # Eos 1.21 (H) 0.04 - 0.54 K/uL [facility] Total Counted 100 [facility] RBC Morphology Normal [facility] WBC Morphology Normal [facility] Platelet Morphology Normal [facility] Artifact Present [facility] Platelet Conc Adequate [facility] Specimen Blood Narrative Performed At Received comment: [facility] User comments: Slide comments: Performing Organization Address City/[facility] Centercode Phone Number [address] [address] CENTER Procalcitonin (06/04/2018 1:42 PM CDT) Procalcitonin 0.62 (H) <0.05 ng/mL [facility] Specimen Blood Narrative Performed At SEPSIS RISK (ng/mL) [facility] Low:0.05-0.50 Intermediate: 0.51-2.00 High: >=2.01 Performing Organization Address [facility] CenterBMe Communityme Phone Number [address] [address] CENTER Troponin I (05/30/2018 8:44 PM CDT) Troponin I <0.01 0.00 - 0.03 ng/mL [facility] Specimen Blood Narrative Performed At Troponin I (TnI) levels must be interpreted [facility] in the context of the presenting symptoms [...] disease, and persistent tachyarrhythmia. Performing Organization Address City/[employer] Phone Number [place] [phone] [place] [address] CENTER Lipase (05/30/2018 8:44 PM CDT) Lipase 227 (H) 8 - 78 U/L [facility] Specimen Blood Narrative Performed At Specimen moderately icteric [facility] Performing Organization Address City/[facility] Cancer Centercode Phone Number [address] [address] CENTER Gamma Glutamyl Transferase (GGT) (05/30/2018 8:44 PM CDT) GGT 55 9 - 64 U/L [facility] Specimen Blood Narrative Performed At Specimen moderately icteric [facility] Performing Organization Address [facility] Phone Number [address] [address] [place] Lipid panel (05/30/2018 8:44 PM CDT) Triglycerides 102 mg/dL [facility] Cholesterol 101 mg/dL [facility] HDL 17 mg/dL [facility] LDL Calculated 64 mg/dL [facility] Specimen Blood Narrative Performed At Triglyceride Reference Range: [facility] Low Risk <150 [id number] High Risk 200-499 Very High Risk>=500 Cholesterol Reference Range: Low Risk <200 [id number] High Risk>240 HDL Cholesterol Reference Range: Low Risk >=60 High Risk <40 LDL Cholesterol Reference Range: Optimal<100 Near [id number] [id number] Very High >=190 Specimen moderately icteric Performing Organization Address City/[facility]/Zipcode Phone Number [address] [address] CENTER after 08/26/2017 Insurance Payer Benefit Plan / Group Subscriber ID Type Phone Address MEDICAID - MEDICAID MEDICAID [employer] xxxxxxxxx Medicaid MGD CARE Non-Contracted Advance Directives For more information, please contact:[place] [address] [address] [place], [place] [phone] Code Status Date Activated Date Inactivated Comments Full Code 07/26/2018 10:48 AM 08/01/2018 4:32 PM This code status was determined by: Patient Full Code 07/09/2018 10:30 PM 07/19/2018 3:01 PM This code status was determined by: Patient Full Code 05/30/2018 8:02 PM 06/16/2018 12:50 PM This code status was determined by: Patient
--- OUTSIDE RECORDS SUMMARY | 2018-08-27 10:27 | XMS REPORT ---
:1990 [facility] [address] [place] [address] Care Team Providers Name Role Phone JAIROMINA Saravia Unavailable Unavailable DALE BOWER Unavailable Unavailable JETT CELAYA Unavailable Unavailable Problems This patient has no known problems. Allergies, Adverse Reactions, Alerts This patient has no known allergies or adverse reactions. Medications This patient has no known medications. Results Test Description Test Time Test Comments Text Results Atomic Results Result Comments CBC W/PLT COUNT & AUTO DIFFERENTIAL 2018-08-01 07:00:00 Test Item Value Reference Range Comments WHITE BLOOD CELL COUNT (BEAKER) (test nhta=205) 7.4 K/ L 3.5-10.5 RED BLOOD CELL COUNT (BEAKER) (test ljrq=246) 3.18 M/ L 4.63-6.08 HEMOGLOBIN (BEAKER) (test oaem=019) 9.0 GM/DL 13.7-17.5 HEMATOCRIT (BEAKER) (test dmwm=757) 28.3 % 40.1-51.0 MEAN CORPUSCULAR VOLUME (BEAKER) (test zfbx=365) 89.0 fL 79.0-92.2 MEAN CORPUSCULAR HEMOGLOBIN (BEAKER) (test hotk=011) 28.3 pg 25.7-32.2 MEAN CORPUSCULAR HEMOGLOBIN CONC (BEAKER) (test alhz=922) 31.8 GM/DL 32.3- 36.5 RED CELL DISTRIBUTION WIDTH (BEAKER) (test xzdb=750) 15.3 % 11.6-14.4 PLATELET COUNT (BEAKER) (test tnle=343) 339 K/CU MM 150-450 MEAN PLATELET VOLUME (BEAKER) (test gqjp=664) 10.2 fL 9.4-12.4 NUCLEATED RED BLOOD CELLS (BEAKER) (test ltkz=945) 0 /100 WBC 0-0 NEUTROPHILS RELATIVE PERCENT (BEAKER) (test cyab=738) 67 % LYMPHOCYTES RELATIVE PERCENT (BEAKER) (test nmtr=334) 19 % MONOCYTES RELATIVE PERCENT (BEAKER) (test echl=687) 11 % EOSINOPHILS RELATIVE PERCENT (BEAKER) (test wzoy=625) 3 % BASOPHILS RELATIVE PERCENT (BEAKER) (test bxlj=045) 0 % NEUTROPHILS ABSOLUTE COUNT (BEAKER) (test dmmb=440) 4.94 K/ L 1.78-5.38 LYMPHOCYTES ABSOLUTE COUNT (BEAKER) (test shvt=299) 1.38 K/ L 1.32-3.57 MONOCYTES ABSOLUTE COUNT (BEAKER) (test jxds=556) 0.82 K/ L 0.30-0.82 EOSINOPHILS ABSOLUTE COUNT (BEAKER) (test hdhb=799) 0.20 K/ L 0.04-0.54 BASOPHILS ABSOLUTE COUNT (BEAKER) (test gzrc=726) 0.02 K/ L 0.01-0.08 IMMATURE GRANULOCYTES-RELATIVE PERCENT (BEAKER) (test 1 % 0-1 tdwt=3650) CALCIUM, [id number] 06:20:00 Test Item Value Reference Range Comments CALCIUM IONIZED (BEAKER) (test syvp=003) 1.01 mmol/L 1.12-1.27 PH, BLOOD (BEAKER) (test byoy=4116) 7.50 COMPREHENSIVE METABOLIC [id number] 06:16:00 Test Item Value Reference Range Comments TOTAL PROTEIN (BEAKER) 5.8 gm/dL 6.0-8.3 (test qoll=814) ALBUMIN (BEAKER) (test 2.5 g/dL 3.5-5.0 uwmb=8777) ALKALINE PHOSPHATASE 56 U/L 40-150 (BEAKER) (test lqai=663) BILIRUBIN TOTAL (BEAKER) 0.3 mg/dL 0.2-1.2 (test kxie=359) SODIUM (BEAKER) (test 138 meq/L 136-145 xapc=227) POTASSIUM (BEAKER) (test 3.7 meq/L 3.5-5.1 eodz=232) CHLORIDE (BEAKER) (test 104 meq/L 98-107 syix=191) CO2 (BEAKER) (test 25 meq/L 22-29 wfcg=892) BLOOD UREA NITROGEN 3 mg/dL 7-21 (BEAKER) (test aeoq=950) CREATININE (BEAKER) (test 0.56 mg/dL 0.57-1.25 zmky=404) GLUCOSE RANDOM (BEAKER) 82 mg/dL 70-105 (test yomt=298) CALCIUM (BEAKER) (test 8.1 mg/dL 8.4-10.2 gkmo=423) AST (SGOT) (BEAKER) (test 15 U/L 5-34 wndw=596) ALT (SGPT) (BEAKER) (test 9 U/L 6-55 qddl=985) EGFR (BEAKER) (test 172 mL/min/1.73 sq ESTIMATED GFR IS NOT jyop=4889) m ACCURATE CREATININE CLEARANCE IN PREDICTING GLOMERULAR FILTRATION RATE. ESTIMATED GFR IS NOT APPLICABLE FOR DIALYSIS PATIENTS. BLOOD [id number] 20:01:00 Test Item Value Reference Range Comments CULTURE (BEAKER) (test nrfd=4355) No growth in 5 days [id number] 06:17:00 Test Item Value Reference Range Comments PHOSPHORUS (BEAKER) (test bbbe=499) 3.5 mg/dL 2.3-4.7 [id number] 06:17:00 Test Item Value Reference Range Comments MAGNESIUM (BEAKER) (test wtnj=461) 1.3 mg/dL 1.6-2.6 BASIC METABOLIC [id number] 06:17:00 Test Item Value Reference Range Comments SODIUM (BEAKER) (test 136 meq/L 136-145 uwlt=357) POTASSIUM (BEAKER) (test 3.4 meq/L 3.5-5.1 poba=867) CHLORIDE (BEAKER) (test 104 meq/L 98-107 qwtm=302) CO2 (BEAKER) (test 25 meq/L 22-29 gvvc=035) BLOOD UREA NITROGEN 3 mg/dL 7-21 (BEAKER) (test swqx=456) CREATININE (BEAKER) (test 0.55 mg/dL 0.57-1.25 fegi=117) GLUCOSE RANDOM (BEAKER) 88 mg/dL 70-105 (test iuei=592) CALCIUM (BEAKER) (test 8.1 mg/dL 8.4-10.2 oppg=525) EGFR (BEAKER) (test 176 mL/min/1.73 sq m ESTIMATED GFR IS NOT lonm=4045) ACCURATE CREATININE CLEARANCE IN PREDICTING GLOMERULAR FILTRATION RATE. ESTIMATED GFR IS NOT APPLICABLE FOR DIALYSIS PATIENTS. CALCIUM, [id number] 05:40:00 Test Item Value Reference Range Comments CALCIUM IONIZED (BEAKER) (test wuqv=776) 1.02 mmol/L 1.12-1.27 PH, BLOOD (BEAKER) (test xlvl=1883) 7.50 CBC W/PLT COUNT & AUTO [id number] 05:32:00 Test Item Value Reference Range Comments WHITE BLOOD CELL COUNT (BEAKER) (test oola=993) 8.9 K/ L 3.5-10.5 RED BLOOD CELL COUNT (BEAKER) (test rfer=328) 3.07 M/ L 4.63-6.08 HEMOGLOBIN (BEAKER) (test xksp=559) 8.7 GM/DL 13.7-17.5 HEMATOCRIT (BEAKER) (test ysdw=017) 27.5 % 40.1-51.0 MEAN CORPUSCULAR VOLUME (BEAKER) (test cshj=969) 89.6 fL 79.0-92.2 MEAN CORPUSCULAR HEMOGLOBIN (BEAKER) (test 28.3 pg 25.7-32.2 rtsb=368) MEAN CORPUSCULAR HEMOGLOBIN CONC (BEAKER) (test 31.6 GM/DL 32.3-36.5 hpqi=235) RED CELL DISTRIBUTION WIDTH (BEAKER) (test 15.2 % 11.6-14.4 pwwr=080) PLATELET COUNT (BEAKER) (test nzzc=283) 298 K/CU MM 150-450 MEAN PLATELET VOLUME (BEAKER) (test twla=548) 10.7 fL 9.4-12.4 NUCLEATED RED BLOOD CELLS (BEAKER) (test 0 /100 WBC 0-0 mxbo=977) NEUTROPHILS RELATIVE PERCENT (BEAKER) (test 75 % zudu=666) LYMPHOCYTES RELATIVE PERCENT (BEAKER) (test 14 % wubk=266) MONOCYTES RELATIVE PERCENT (BEAKER) (test 9 % lkmc=863) EOSINOPHILS RELATIVE PERCENT (BEAKER) (test 2 % dfsy=711) BASOPHILS RELATIVE PERCENT (BEAKER) (test 0 % ujpy=448) NEUTROPHILS ABSOLUTE COUNT (BEAKER) (test 6.64 K/ L 1.78-5.38 pufl=979) LYMPHOCYTES ABSOLUTE COUNT (BEAKER) (test 1.23 K/ L 1.32-3.57 foit=829) MONOCYTES ABSOLUTE COUNT (BEAKER) (test 0.82 K/ L 0.30-0.82 ubcg=248) EOSINOPHILS ABSOLUTE COUNT (BEAKER) (test 0.14 K/ L 0.04-0.54 aclp=340) BASOPHILS ABSOLUTE COUNT (BEAKER) (test 0.02 K/ L 0.01-0.08 hcyf=058) IMMATURE GRANULOCYTES-RELATIVE PERCENT (BEAKER) 1 % 0-1 (test gukg=2865) COMPREHENSIVE METABOLIC [id number] 07:10:00 Test Item Value Reference Range Comments TOTAL PROTEIN (BEAKER) 5.4 gm/dL 6.0-8.3 (test csqj=725) ALBUMIN (BEAKER) (test 2.4 g/dL 3.5-5.0 zqno=2215) ALKALINE PHOSPHATASE 62 U/L 40-150 (BEAKER) (test zekq=621) BILIRUBIN TOTAL (BEAKER) 0.4 mg/dL 0.2-1.2 (test pzhp=610) SODIUM (BEAKER) (test 138 meq/L 136-145 javb=460) POTASSIUM (BEAKER) (test 3.6 meq/L 3.5-5.1 nbhz=951) CHLORIDE (BEAKER) (test 105 meq/L 98-107 clkk=117) CO2 (BEAKER) (test 23 meq/L 22-29 quby=005) BLOOD UREA NITROGEN 4 mg/dL 7-21 (BEAKER) (test zmop=138) CREATININE (BEAKER) (test 0.59 mg/dL 0.57-1.25 gyox=931) GLUCOSE RANDOM (BEAKER) 90 mg/dL 70-105 (test jbot=105) CALCIUM (BEAKER) (test 8.0 mg/dL 8.4-10.2 hbpk=008) AST (SGOT) (BEAKER) (test 16 U/L 5-34 jcbt=463) ALT (SGPT) (BEAKER) (test 11 U/L 6-55 sldv=823) EGFR (BEAKER) (test 162 mL/min/1.73 sq ESTIMATED GFR IS NOT kywi=8079) m ACCURATE CREATININE CLEARANCE IN PREDICTING GLOMERULAR FILTRATION RATE. ESTIMATED GFR IS NOT APPLICABLE FOR DIALYSIS PATIENTS. [id number] 06:50:00 Test Item Value Reference Range Comments MAGNESIUM (BEAKER) (test ckzu=497) 1.0 mg/dL 1.6-2.6 COMPREHENSIVE METABOLIC [id number] 06:33:00 Test Item Value Reference Range Comments TOTAL PROTEIN (BEAKER) 5.4 gm/dL 6.0-8.3 (test rthx=761) ALBUMIN (BEAKER) (test 2.4 g/dL 3.5-5.0 orps=8744) ALKALINE PHOSPHATASE 70 U/L 40-150 (BEAKER) (test dyao=463) BILIRUBIN TOTAL (BEAKER) 0.3 mg/dL 0.2-1.2 (test jxuu=020) SODIUM (BEAKER) (test 139 meq/L 136-145 kqss=264) POTASSIUM (BEAKER) (test 3.0 meq/L 3.5-5.1 zgfq=110) CHLORIDE (BEAKER) (test 106 meq/L 98-107 pntf=205) CO2 (BEAKER) (test 25 meq/L 22-29 rmbn=741) BLOOD UREA NITROGEN 3 mg/dL 7-21 (BEAKER) (test gaxc=777) CREATININE (BEAKER) (test 0.57 mg/dL 0.57-1.25 zuaz=962) GLUCOSE RANDOM (BEAKER) 93 mg/dL 70-105 (test fdbe=443) CALCIUM (BEAKER) (test 7.8 mg/dL 8.4-10.2 xjna=678) AST (SGOT) (BEAKER) (test 24 U/L 5-34 otej=404) ALT (SGPT) (BEAKER) (test 18 U/L 6-55 tftd=571) EGFR (BEAKER) (test 169 mL/min/1.73 sq ESTIMATED GFR IS NOT euyi=7264) m ACCURATE CREATININE CLEARANCE IN PREDICTING GLOMERULAR FILTRATION RATE. ESTIMATED GFR IS NOT APPLICABLE FOR DIALYSIS PATIENTS. [id number] 06:31:00 Test Item Value Reference Range Comments PHOSPHORUS (BEAKER) (test satb=696) 3.3 mg/dL 2.3-4.7 CBC W/PLT COUNT & AUTO [id number] 06:23:00 Test Item Value Reference Range Comments WHITE BLOOD CELL COUNT (BEAKER) (test usfy=954) 7.6 K/ L 3.5-10.5 RED BLOOD CELL COUNT (BEAKER) (test pnfx=793) 3.00 M/ L 4.63-6.08 HEMOGLOBIN (BEAKER) (test atyi=628) 8.6 GM/DL 13.7-17.5 HEMATOCRIT (BEAKER) (test ddtb=628) 26.5 % 40.1-51.0 MEAN CORPUSCULAR VOLUME (BEAKER) (test kkfb=459) 88.3 fL 79.0-92.2 MEAN CORPUSCULAR HEMOGLOBIN (BEAKER) (test 28.7 pg 25.7-32.2 mbhu=938) MEAN CORPUSCULAR HEMOGLOBIN CONC (BEAKER) (test 32.5 GM/DL 32.3-36.5 qbyg=499) RED CELL DISTRIBUTION WIDTH (BEAKER) (test 14.8 % 11.6-14.4 mjse=638) PLATELET COUNT (BEAKER) (test bhgq=846) 273 K/CU MM 150-450 MEAN PLATELET VOLUME (BEAKER) (test ektx=221) 10.7 fL 9.4-12.4 NUCLEATED RED BLOOD CELLS (BEAKER) (test 0 /100 WBC 0-0 sexf=905) NEUTROPHILS RELATIVE PERCENT (BEAKER) (test 73 % kccj=470) LYMPHOCYTES RELATIVE PERCENT (BEAKER) (test 14 % rkly=459) MONOCYTES RELATIVE PERCENT (BEAKER) (test 13 % qwjy=771) EOSINOPHILS RELATIVE PERCENT (BEAKER) (test 0 % grsh=224) BASOPHILS RELATIVE PERCENT (BEAKER) (test 0 % rxpe=171) NEUTROPHILS ABSOLUTE COUNT (BEAKER) (test 5.52 K/ L 1.78-5.38 tepn=684) LYMPHOCYTES ABSOLUTE COUNT (BEAKER) (test 1.05 K/ L 1.32-3.57 jtfw=338) MONOCYTES ABSOLUTE COUNT (BEAKER) (test 0.96 K/ L 0.30-0.82 cbra=063) EOSINOPHILS ABSOLUTE COUNT (BEAKER) (test 0.01 K/ L 0.04-0.54 cmri=443) BASOPHILS ABSOLUTE COUNT (BEAKER) (test 0.02 K/ L 0.01-0.08 ynny=879) IMMATURE GRANULOCYTES-RELATIVE PERCENT (BEAKER) 1 % 0-1 (test gxsv=7544) LACTIC ACID, [id number] 06:22:00 Test Item Value Reference Range Comments LACTATE BLOOD VENOUS (2) (BEAKER) (test 0.8 mmol/L 0.5-2.2 qlfl=6420) CALCIUM, [id number] 06:18:00 Test Item Value Reference Range Comments CALCIUM IONIZED (BEAKER) (test uthx=794) 1.01 mmol/L 1.12-1.27 PH, BLOOD (BEAKER) (test nlrc=7670) 7.46 U/S, ABDOMINAL, [id number] 16:51:00Abdomen limited area? Add comment if clarification is needed.->Right upper quadrantReason for exam:->fever, abdominal pain with biliary stent in placeShould this be performed at the bedside?->YesFINAL REPORT Limited Abdominal ultrasound. Clinical history: fever, abdominalpain with biliary stent in place Comparison study: CT scan dated July 13, 2018 and ultrasound dated June 01, 2018 Findings: The visualized liver is normal in appearance with a normal echotexture. The left lobe is not well seen. It measures 14.6 cm in span. There is no evidence of intra or extrahepaticbiliary dilatation with the common bile duct measuring [...] remainder of the abdomen was not assessed. Impression:1. Pancreas not well seen.2. Left lobe of liver not well seen.3. No other significant abnormality. Signed: Michael Briones MDReport Verified Date/Time: 07/28/2018 16:51:39 Reading Location: [address] Reading Room [id number] 06:56:00 Test Item Value Reference Range Comments PHOSPHORUS (BEAKER) (test mvyb=295) 2.6 mg/dL 2.3-4.7 [id number] 06:56:00 Test Item Value Reference Range Comments MAGNESIUM (BEAKER) (test oxzu=699) 1.5 mg/dL 1.6-2.6 BASIC METABOLIC [id number] 06:56:00 Test Item Value Reference Range Comments SODIUM (BEAKER) (test 139 meq/L 136-145 bazr=160) POTASSIUM (BEAKER) (test 3.5 meq/L 3.5-5.1 qjyy=101) CHLORIDE (BEAKER) (test 107 meq/L 98-107 exgd=117) CO2 (BEAKER) (test 24 meq/L 22-29 dgme=997) BLOOD UREA NITROGEN 6 mg/dL 7-21 (BEAKER) (test azqe=342) CREATININE (BEAKER) (test 0.61 mg/dL 0.57-1.25 livm=645) GLUCOSE RANDOM (BEAKER) 91 mg/dL 70-105 (test dyed=716) CALCIUM (BEAKER) (test 7.9 mg/dL 8.4-10.2 quza=227) EGFR (BEAKER) (test 156 mL/min/1.73 sq m ESTIMATED GFR IS NOT idfe=2909) ACCURATE CREATININE CLEARANCE IN PREDICTING GLOMERULAR FILTRATION RATE. ESTIMATED GFR IS NOT APPLICABLE FOR DIALYSIS PATIENTS. LACTIC ACID, [id number] 06:49:00 Test Item Value Reference Range Comments LACTATE BLOOD VENOUS (2) (BEAKER) (test 0.7 mmol/L 0.5-2.2 lucn=1445) CBC W/PLT COUNT & AUTO [id number] 06:31:00 Test Item Value Reference Range Comments WHITE BLOOD CELL COUNT (BEAKER) (test nest=577) 6.5 K/ L 3.5-10.5 RED BLOOD CELL COUNT (BEAKER) (test kwvj=495) 3.00 M/ L 4.63-6.08 HEMOGLOBIN (BEAKER) (test khfs=391) 8.4 GM/DL 13.7-17.5 HEMATOCRIT (BEAKER) (test vaqd=240) 27.3 % 40.1-51.0 MEAN CORPUSCULAR VOLUME (BEAKER) (test klgv=004) 91.0 fL 79.0-92.2 MEAN CORPUSCULAR HEMOGLOBIN (BEAKER) (test 28.0 pg 25.7-32.2 jgsh=946) MEAN CORPUSCULAR HEMOGLOBIN CONC (BEAKER) (test 30.8 GM/DL 32.3-36.5 chkt=724) RED CELL DISTRIBUTION WIDTH (BEAKER) (test 14.7 % 11.6-14.4 kdgh=525) PLATELET COUNT (BEAKER) (test rbio=027) 231 K/CU MM 150-450 MEAN PLATELET VOLUME (BEAKER) (test snxe=115) 11.0 fL 9.4-12.4 NUCLEATED RED BLOOD CELLS (BEAKER) (test 0 /100 WBC 0-0 eyfm=407) NEUTROPHILS RELATIVE PERCENT (BEAKER) (test 74 % exnm=039) LYMPHOCYTES RELATIVE PERCENT (BEAKER) (test 17 % pfhf=225) MONOCYTES RELATIVE PERCENT (BEAKER) (test 9 % ixen=201) EOSINOPHILS RELATIVE PERCENT (BEAKER) (test 0 % nwdq=681) BASOPHILS RELATIVE PERCENT (BEAKER) (test 0 % qlwc=061) NEUTROPHILS ABSOLUTE COUNT (BEAKER) (test 4.77 K/ L 1.78-5.38 krwe=266) LYMPHOCYTES ABSOLUTE COUNT (BEAKER) (test 1.09 K/ L 1.32-3.57 ykrg=853) MONOCYTES ABSOLUTE COUNT (BEAKER) (test 0.56 K/ L 0.30-0.82 fegr=750) EOSINOPHILS ABSOLUTE COUNT (BEAKER) (test 0.00 K/ L 0.04-0.54 lzvk=592) BASOPHILS ABSOLUTE COUNT (BEAKER) (test 0.01 K/ L 0.01-0.08 vrgy=905) IMMATURE GRANULOCYTES-RELATIVE PERCENT (BEAKER) 0 % 0-1 (test kyqr=4118) [id number] 17:59:00 Test Item Value Reference Range Comments PHOSPHORUS (BEAKER) (test vrbv=577) 3.4 mg/dL 2.3-4.7 Check Serum Phosphorus level 4 hours after IV phosphorus replacement or 8 hours after PO replacementcompleted.[id number] 17:59:00 Test Item Value Reference Range Comments MAGNESIUM (BEAKER) (test ymvt=266) 1.7 mg/dL 1.6-2.6 Check Serum Phosphorus level 4 hours after IV phosphorus replacement or 8 hours after PO replacementcompleted.[id number] 04:50:00 Test Item Value Reference Range Comments PHOSPHORUS (BEAKER) (test gerk=730) 1.8 mg/dL 2.3-4.7 [id number] 04:50:00 Test Item Value Reference Range Comments MAGNESIUM (BEAKER) (test zvvz=332) 1.4 mg/dL 1.6-2.6 BASIC METABOLIC [id number] 04:50:00 Test Item Value Reference Range Comments SODIUM (BEAKER) (test 137 meq/L 136-145 arch=216) POTASSIUM (BEAKER) (test 3.9 meq/L 3.5-5.1 pdry=765) CHLORIDE (BEAKER) (test 107 meq/L 98-107 uddb=418) CO2 (BEAKER) (test 25 meq/L 22-29 gyhu=701) BLOOD UREA NITROGEN 6 mg/dL 7-21 (BEAKER) (test kgay=221) CREATININE (BEAKER) (test 0.62 mg/dL 0.57-1.25 isnl=319) GLUCOSE RANDOM (BEAKER) 131 mg/dL 70-105 (test gkty=350) CALCIUM (BEAKER) (test 8.0 mg/dL 8.4-10.2 rcjl=723) EGFR (BEAKER) (test 153 mL/min/1.73 sq m ESTIMATED GFR IS NOT pfiq=4853) ACCURATE CREATININE CLEARANCE IN PREDICTING GLOMERULAR FILTRATION RATE. ESTIMATED GFR IS NOT APPLICABLE FOR DIALYSIS PATIENTS. CBC W/PLT COUNT & AUTO [id number] 04:45:00 Test Item Value Reference Range Comments WHITE BLOOD CELL COUNT (BEAKER) (test jefz=966) 6.0 K/ L 3.5-10.5 RED BLOOD CELL COUNT (BEAKER) (test lxvp=357) 4.00 M/ L 4.63-6.08 HEMOGLOBIN (BEAKER) (test islp=826) 11.3 GM/DL 13.7-17.5 HEMATOCRIT (BEAKER) (test cqvf=670) 35.8 % 40.1-51.0 MEAN CORPUSCULAR VOLUME (BEAKER) (test ogcg=895) 89.5 fL 79.0-92.2 MEAN CORPUSCULAR HEMOGLOBIN (BEAKER) (test 28.3 pg 25.7-32.2 rlih=700) MEAN CORPUSCULAR HEMOGLOBIN CONC (BEAKER) (test 31.6 GM/DL 32.3-36.5 fjfg=791) RED CELL DISTRIBUTION WIDTH (BEAKER) (test 14.5 % 11.6-14.4 mhcn=220) PLATELET COUNT (BEAKER) (test qxti=963) 167 K/CU MM 150-450 MEAN PLATELET VOLUME (BEAKER) (test ndhu=370) 11.1 fL 9.4-12.4 NUCLEATED RED BLOOD CELLS (BEAKER) (test 0 /100 WBC 0-0 baie=511) NEUTROPHILS RELATIVE PERCENT (BEAKER) (test 88 % wemt=250) LYMPHOCYTES RELATIVE PERCENT (BEAKER) (test 7 % awdr=253) MONOCYTES RELATIVE PERCENT (BEAKER) (test 4 % asae=676) EOSINOPHILS RELATIVE PERCENT (BEAKER) (test 0 % hwhl=763) BASOPHILS RELATIVE PERCENT (BEAKER) (test 0 % qxsi=487) NEUTROPHILS ABSOLUTE COUNT (BEAKER) (test 5.30 K/ L 1.78-5.38 ljzs=064) LYMPHOCYTES ABSOLUTE COUNT (BEAKER) (test 0.43 K/ L 1.32-3.57 slgw=047) MONOCYTES ABSOLUTE COUNT (BEAKER) (test 0.24 K/ L 0.30-0.82 wqop=922) EOSINOPHILS ABSOLUTE COUNT (BEAKER) (test 0.00 K/ L 0.04-0.54 hcmh=260) BASOPHILS ABSOLUTE COUNT (BEAKER) (test 0.01 K/ L 0.01-0.08 ubre=340) IMMATURE GRANULOCYTES-RELATIVE PERCENT (BEAKER) 0 % 0-1 (test sfpc=3998) FL, [id number] 22:28:00Reason for exam:->bile duct stent removalFINAL REPORT Examination: ERCP 4 fluoroscopic spot views were obtained during the procedure by the ordering service. Images are nondiagnostic as no radiologist was present at the time of imaging. Fluoroscopic time was 49.6 seconds. Please see the procedure report for details. Signed: Kevin Golden MDReport Verified Date/Time: 07/26/2018 22:28: 43 Reading Location: [address] Reading Room POCT-GLUCOSE [id number] 20:43:00 Test Item Value Reference Range Comments POC-GLUCOSE METER (BEAKER) 146 mg/dL 70-110 TESTED AT [address] (test papi=6992) [facility] [address] RAPID STREP A [id number] 18:22:00 Test Item Value Reference Range Comments STREP A ANTIGEN (BEAKER) (test qrbg=203) Negative COMPREHENSIVE METABOLIC [id number] 17:37:00 Test Item Value Reference Range Comments TOTAL PROTEIN (BEAKER) 6.1 gm/dL 6.0-8.3 (test meav=407) ALBUMIN (BEAKER) (test 2.6 g/dL 3.5-5.0 ispp=7909) ALKALINE PHOSPHATASE 109 U/L 40-150 (BEAKER) (test ssqw=728) BILIRUBIN TOTAL (BEAKER) 0.7 mg/dL 0.2-1.2 (test cxeo=624) SODIUM (BEAKER) (test 138 meq/L 136-145 pglb=898) POTASSIUM (BEAKER) (test 3.5 meq/L 3.5-5.1 pcjm=253) CHLORIDE (BEAKER) (test 104 meq/L 98-107 immq=584) CO2 (BEAKER) (test 27 meq/L 22-29 ijnu=353) BLOOD UREA NITROGEN 6 mg/dL 7-21 (BEAKER) (test utbq=680) CREATININE (BEAKER) (test 0.65 mg/dL 0.57-1.25 wnpr=271) GLUCOSE RANDOM (BEAKER) 115 mg/dL 70-105 (test shvb=368) CALCIUM (BEAKER) (test 8.2 mg/dL 8.4-10.2 crmb=910) AST (SGOT) (BEAKER) (test 36 U/L 5-34 rrmz=949) ALT (SGPT) (BEAKER) (test 42 U/L 6-55 mzye=823) EGFR (BEAKER) (test 145 mL/min/1.73 sq ESTIMATED GFR IS NOT rajv=3185) m ACCURATE CREATININE CLEARANCE IN PREDICTING GLOMERULAR FILTRATION RATE. ESTIMATED GFR IS NOT APPLICABLE FOR DIALYSIS PATIENTS. CBC W/PLT COUNT & AUTO [id number] 17:16:00 Test Item Value Reference Range Comments WHITE BLOOD CELL COUNT (BEAKER) (test wfmu=393) 11.1 K/ L 3.5-10.5 RED BLOOD CELL COUNT (BEAKER) (test akyc=151) 3.44 M/ L 4.63-6.08 HEMOGLOBIN (BEAKER) (test dayh=102) 9.9 GM/DL 13.7-17.5 HEMATOCRIT (BEAKER) (test obdz=156) 30.6 % 40.1-51.0 MEAN CORPUSCULAR VOLUME (BEAKER) (test ytsa=240) 89.0 fL 79.0-92.2 MEAN CORPUSCULAR HEMOGLOBIN (BEAKER) (test 28.8 pg 25.7-32.2 zrrm=459) MEAN CORPUSCULAR HEMOGLOBIN CONC (BEAKER) (test 32.4 GM/DL 32.3-36.5 jayi=862) RED CELL DISTRIBUTION WIDTH (BEAKER) (test 14.6 % 11.6-14.4 jxhq=225) PLATELET COUNT (BEAKER) (test tfij=694) 240 K/CU MM 150-450 MEAN PLATELET VOLUME (BEAKER) (test neow=300) 11.2 fL 9.4-12.4 NUCLEATED RED BLOOD CELLS (BEAKER) (test 0 /100 WBC 0-0 pret=257) NEUTROPHILS RELATIVE PERCENT (BEAKER) (test 79 % ydef=689) LYMPHOCYTES RELATIVE PERCENT (BEAKER) (test 10 % gwzw=908) MONOCYTES RELATIVE PERCENT (BEAKER) (test 10 % mgni=270) EOSINOPHILS RELATIVE PERCENT (BEAKER) (test 0 % ikbx=417) BASOPHILS RELATIVE PERCENT (BEAKER) (test 0 % avsr=616) NEUTROPHILS ABSOLUTE COUNT (BEAKER) (test 8.76 K/ L 1.78-5.38 dunf=224) LYMPHOCYTES ABSOLUTE COUNT (BEAKER) (test 1.09 K/ L 1.32-3.57 eely=128) MONOCYTES ABSOLUTE COUNT (BEAKER) (test 1.11 K/ L 0.30-0.82 nsyd=873) EOSINOPHILS ABSOLUTE COUNT (BEAKER) (test 0.04 K/ L 0.04-0.54 abwh=554) BASOPHILS ABSOLUTE COUNT (BEAKER) (test 0.01 K/ L 0.01-0.08 lqel=595) IMMATURE GRANULOCYTES-RELATIVE PERCENT (BEAKER) 1 % 0-1 (test lcvd=7812) POCT-GLUCOSE [id number] 12:06:00 Test Item Value Reference Range Comments POC-GLUCOSE METER (BEAKER) 132 mg/dL 70-110 TESTED AT [address] (test sumf=7116) [place] [id number] POCT-GLUCOSE [id number] 08:57:00 Test Item Value Reference Range Comments POC-GLUCOSE METER (BEAKER) 80 mg/dL 70-110 TESTED AT [address] (test lsqi=0092) [place] [address] BASIC METABOLIC [id number] 06:35:00 Test Item Value Reference Range Comments SODIUM (BEAKER) (test 136 meq/L 136-145 vbqd=400) POTASSIUM (BEAKER) (test 3.4 meq/L 3.5-5.1 ryyg=501) CHLORIDE (BEAKER) (test 101 meq/L 98-107 yjbn=086) CO2 (BEAKER) (test 26 meq/L 22-29 idhp=952) BLOOD UREA NITROGEN 6 mg/dL 7-21 (BEAKER) (test lmgc=445) CREATININE (BEAKER) (test 0.64 mg/dL 0.57-1.25 kvea=073) GLUCOSE RANDOM (BEAKER) 80 mg/dL 70-105 (test xscg=497) CALCIUM (BEAKER) (test 8.5 mg/dL 8.4-10.2 xquc=166) EGFR (BEAKER) (test 148 mL/min/1.73 sq m ESTIMATED GFR IS NOT jqts=5678) ACCURATE CREATININE CLEARANCE IN PREDICTING GLOMERULAR FILTRATION RATE. ESTIMATED GFR IS NOT APPLICABLE FOR DIALYSIS PATIENTS. POCT-GLUCOSE [id number] 22:36:00 Test Item Value Reference Range Comments POC-GLUCOSE METER (BEAKER) 72 mg/dL 70-110 TESTED AT [address] (test dnjw=7544) [place] [address] POCT-GLUCOSE [id number] 12:21:00 Test Item Value Reference Range Comments POC-GLUCOSE METER (BEAKER) 82 mg/dL 70-110 TESTED AT [address] (test evcs=0266) [place] [address] BASIC METABOLIC [id number] 09:30:00 Test Item Value Reference Range Comments SODIUM (BEAKER) (test 137 meq/L 136-145 euci=027) POTASSIUM (BEAKER) (test 3.8 meq/L 3.5-5.1 tazq=339) CHLORIDE (BEAKER) (test 103 meq/L 98-107 jrcg=827) CO2 (BEAKER) (test 28 meq/L 22-29 hjlo=044) BLOOD UREA NITROGEN 7 mg/dL 7-21 (BEAKER) (test yssm=006) CREATININE (BEAKER) (test 0.61 mg/dL 0.57-1.25 erzc=491) GLUCOSE RANDOM (BEAKER) 90 mg/dL 70-105 (test nwss=803) CALCIUM (BEAKER) (test 8.2 mg/dL 8.4-10.2 pwpi=502) EGFR (BEAKER) (test 156 mL/min/1.73 sq m ESTIMATED GFR IS NOT uiws=8793) ACCURATE CREATININE CLEARANCE IN PREDICTING GLOMERULAR FILTRATION RATE. ESTIMATED GFR IS NOT APPLICABLE FOR DIALYSIS PATIENTS. POCT-GLUCOSE [id number] 08:42:00 Test Item Value Reference Range Comments POC-GLUCOSE METER (BEAKER) 85 mg/dL 70-110 TESTED AT [address] (test ygck=3540) [place] [address] POCT-GLUCOSE [id number] 21:33:00 Test Item Value Reference Range Comments POC-GLUCOSE METER (BEAKER) 106 mg/dL 70-110 TESTED AT [address] (test nacq=5479) [place] [id number] POCT-GLUCOSE [id number] 17:42:00 Test Item Value Reference Range Comments POC-GLUCOSE METER (BEAKER) 95 mg/dL 70-110 TESTED AT [address] (test tpff=1615) [place] [address] [id number] 14:42:00 Test Item Value Reference Range Comments POTASSIUM (BEAKER) (test 3.7 meq/L 3.5-5.1 Specimen slightly hemolyzed psol=088) Check Serum Potassium level 2 hours after oral potassium replacement completed or 30 min after intravenous potassium replacement.POCT-GLUCOSE [id number] 11:45:00 Test Item Value Reference Range Comments POC-GLUCOSE METER (BEAKER) 151 mg/dL 70-110 TESTED AT [address] (test nmvn=9534) [place] [id number] POCT-GLUCOSE [id number] 09:45:00 Test Item Value Reference Range Comments POC-GLUCOSE METER (BEAKER) 127 mg/dL 70-110 TESTED AT [address] (test ulhv=3038) [place] [address] BLOOD [id number] 08:00:00 Test Item Value Reference Range Comments CULTURE (BEAKER) (test zfdq=4810) No growth in 5 days BLOOD [id number] 08:00:00 Test Item Value Reference Range Comments CULTURE (BEAKER) (test esva=7725) No growth in 5 days BASIC METABOLIC [id number] 06:48:00 Test Item Value Reference Range Comments SODIUM (BEAKER) (test 139 meq/L 136-145 kcig=611) POTASSIUM (BEAKER) (test 3.2 meq/L 3.5-5.1 lbij=919) CHLORIDE (BEAKER) (test 104 meq/L 98-107 qzso=306) CO2 (BEAKER) (test 28 meq/L 22-29 gtlx=379) BLOOD UREA NITROGEN 7 mg/dL 7-21 (BEAKER) (test ebsr=977) CREATININE (BEAKER) (test 0.61 mg/dL 0.57-1.25 tkcq=478) GLUCOSE RANDOM (BEAKER) 88 mg/dL 70-105 (test sbnd=163) CALCIUM (BEAKER) (test 7.9 mg/dL 8.4-10.2 mavc=426) EGFR (BEAKER) (test 156 mL/min/1.73 sq m ESTIMATED GFR IS NOT idyr=6044) ACCURATE CREATININE CLEARANCE IN PREDICTING GLOMERULAR FILTRATION RATE. ESTIMATED GFR IS NOT APPLICABLE FOR DIALYSIS PATIENTS. [id number] 06:46:00 Test Item Value Reference Range Comments PHOSPHORUS (BEAKER) (test vpej=306) 3.5 mg/dL 2.3-4.7 [id number] 06:46:00 Test Item Value Reference Range Comments MAGNESIUM (BEAKER) (test gpyv=579) 1.7 mg/dL 1.6-2.6 CALCIUM, [id number] 06:45:00 Test Item Value Reference Range Comments CALCIUM IONIZED (BEAKER) (test xgjf=984) 1.00 mmol/L 1.12-1.27 PH, BLOOD (BEAKER) (test kmcu=5303) 7.52 POCT-GLUCOSE [id number] 21:56:00 Test Item Value Reference Range Comments POC-GLUCOSE METER (BEAKER) 112 mg/dL 70-110 TESTED AT [address] (test cwyi=0420) [facility] [address] POCT-GLUCOSE [id number] 17:46:00 Test Item Value Reference Range Comments POC-GLUCOSE METER (BEAKER) 86 mg/dL 70-110 TESTED AT [address] (test qfyp=1054) [facility] [address] POCT-GLUCOSE [id number] 11:20:00 Test Item Value Reference Range Comments POC-GLUCOSE METER (BEAKER) 164 mg/dL 70-110 TESTED AT [address] (test gwgv=4441) [facility] [address] POCT-GLUCOSE [id number] 08:57:00 Test Item Value Reference Range Comments POC-GLUCOSE METER (BEAKER) 88 mg/dL 70-110 TESTED AT [address] (test uvay=3208) [facility] [address] CALCIUM, [id number] 05:14:00 Test Item Value Reference Range Comments CALCIUM IONIZED (BEAKER) (test ljod=011) 1.12 mmol/L 1.12-1.27 PH, BLOOD (BEAKER) (test bokz=6766) 7.43 BASIC METABOLIC [id number] 04:59:00 Test Item Value Reference Range Comments SODIUM (BEAKER) (test 140 meq/L 136-145 bvdl=469) POTASSIUM (BEAKER) (test 3.3 meq/L 3.5-5.1 vshe=928) CHLORIDE (BEAKER) (test 107 meq/L 98-107 ehmz=698) CO2 (BEAKER) (test 28 meq/L 22-29 xjrh=791) BLOOD UREA NITROGEN 10 mg/dL 7-21 (BEAKER) (test wgdb=674) CREATININE (BEAKER) (test 0.64 mg/dL 0.57-1.25 mlqy=124) GLUCOSE RANDOM (BEAKER) 99 mg/dL 70-105 (test auue=601) CALCIUM (BEAKER) (test 7.5 mg/dL 8.4-10.2 doaf=129) EGFR (BEAKER) (test 148 mL/min/1.73 sq m ESTIMATED GFR IS NOT hwxl=4444) ACCURATE CREATININE CLEARANCE IN PREDICTING GLOMERULAR FILTRATION RATE. ESTIMATED GFR IS NOT APPLICABLE FOR DIALYSIS PATIENTS. [id number] 04:57:00 Test Item Value Reference Range Comments MAGNESIUM (BEAKER) (test nagq=166) 1.8 mg/dL 1.6-2.6 [id number] 04:56:00 Test Item Value Reference Range Comments PHOSPHORUS (BEAKER) (test vuwd=876) 3.4 mg/dL 2.3-4.7 [id number] 04:54:00 Test Item Value Reference Range Comments PROTIME (BEAKER) (test yhul=974) 17.0 seconds 11.9-14.2 INR (BEAKER) (test ahub=210) 1.5 <=5.9 PARTIAL THROMBOPLASTIN TIME (BEAKER) (test 34.1 seconds 22.5-36.0 vguh=927) Effective 07/03/2018: PT Reference Range ChangeNew: 11.9-14.2 Previous: 11.7- 14.7RECOMMENDED COUMADIN/WARFARIN INR THERAPY RANGESSTANDARD DOSE: 2.0-3.0 Includes: PROPHYLAXIS for venous thrombosis, systemic embolization; TREATMENT for venous thrombosis and/or pulmonary embolus.HIGH RISK: Target INR is2.5-3.5 for patients wiht mechanical heart valves.PROTHROMBIN [id number] 04:52: 00 Test Item Value Reference Range Comments PROTIME (BEAKER) (test aonm=987) 17.0 seconds 11.9-14.2 INR (BEAKER) (test uecn=703) 1.5 <=5.9 Effective 07/03/2018: PT Reference Range ChangeNew: 11.9-14.2 Previous: 11.7- 14.7RECOMMENDED COUMADIN/WARFARIN INR THERAPY RANGESSTANDARD DOSE: 2.0-3.0 Includes: PROPHYLAXIS for venous thrombosis, systemic embolization; TREATMENT for venous thrombosis and/or pulmonary embolus.HIGH RISK: Target INR is2.5-3.5 for patients wiht mechanical heart valves.CBC W/PLT COUNT & AUTO [id number] 04:47:00 Test Item Value Reference Range Comments WHITE BLOOD CELL COUNT (BEAKER) (test zzmp=928) 8.1 K/ L 3.5-10.5 RED BLOOD CELL COUNT (BEAKER) (test yqoo=253) 3.62 M/ L 4.63-6.08 HEMOGLOBIN (BEAKER) (test lzej=894) 10.5 GM/DL 13.7-17.5 HEMATOCRIT (BEAKER) (test fuwi=021) 32.5 % 40.1-51.0 MEAN CORPUSCULAR VOLUME (BEAKER) (test ksjd=061) 89.8 fL 79.0-92.2 MEAN CORPUSCULAR HEMOGLOBIN (BEAKER) (test 29.0 pg 25.7-32.2 ftpu=791) MEAN CORPUSCULAR HEMOGLOBIN CONC (BEAKER) (test 32.3 GM/DL 32.3-36.5 wboa=516) RED CELL DISTRIBUTION WIDTH (BEAKER) (test 13.7 % 11.6-14.4 irbq=471) PLATELET COUNT (BEAKER) (test iwjz=173) 339 K/CU MM 150-450 MEAN PLATELET VOLUME (BEAKER) (test rjtf=541) 10.7 fL 9.4-12.4 NUCLEATED RED BLOOD CELLS (BEAKER) (test 0 /100 WBC 0-0 vswu=802) NEUTROPHILS RELATIVE PERCENT (BEAKER) (test 69 % fwcb=721) LYMPHOCYTES RELATIVE PERCENT (BEAKER) (test 23 % maku=811) MONOCYTES RELATIVE PERCENT (BEAKER) (test 7 % weis=609) EOSINOPHILS RELATIVE PERCENT (BEAKER) (test 0 % rilf=142) BASOPHILS RELATIVE PERCENT (BEAKER) (test 0 % lptx=144) NEUTROPHILS ABSOLUTE COUNT (BEAKER) (test 5.62 K/ L 1.78-5.38 gleq=911) LYMPHOCYTES ABSOLUTE COUNT (BEAKER) (test 1.88 K/ L 1.32-3.57 kudd=248) MONOCYTES ABSOLUTE COUNT (BEAKER) (test 0.60 K/ L 0.30-0.82 ncis=779) EOSINOPHILS ABSOLUTE COUNT (BEAKER) (test 0.00 K/ L 0.04-0.54 ggjz=771) BASOPHILS ABSOLUTE COUNT (BEAKER) (test 0.00 K/ L 0.01-0.08 aegk=616) IMMATURE GRANULOCYTES-RELATIVE PERCENT (BEAKER) 1 % 0-1 (test ywnx=2083) POCT-GLUCOSE [id number] 22:08:00 Test Item Value Reference Range Comments POC-GLUCOSE METER (BEAKER) 133 mg/dL 70-110 TESTED AT [facility] [address] [facility] (test hamq=1564) [place] [address] POCT-GLUCOSE [id number] 18:34:00 Test Item Value Reference Range Comments POC-GLUCOSE METER (BEAKER) 151 mg/dL 70-110 TESTED AT [address] (test snhv=5224) [place] [id number] POCT-GLUCOSE [id number] 12:29:00 Test Item Value Reference Range Comments POC-GLUCOSE METER (BEAKER) 124 mg/dL 70-110 TESTED AT [address] (test ukjk=4067) [place] [address] RAD, CHEST, 1 VIEW, NON [id number] 10:57:00Reason for exam:->SOBShould this be performed at [...] osseous structures are unremarkable. Signed: Lane Noel MDReport Verified Date/Time: 07/15/2018 10:57:23 Reading Location: [facility] Radiology Reading Room [facility]. DIFFICILE GDH [id number] 10: 08:00 Test Item Value Reference Range Comments CDT TOXIN (test Negative Negative ioia=[id number]) CDT GDH ANTIGEN (test Negative Negative No indication of Clostridium qmxy=[id number]) difficile infection and no colonization. Discontinue enteric isolation and therapy. Testing performed by [employer] Rapid Cassette Assay. For GDH, published sensitivity of the assay is 98.7% compared to cytotoxicity testing. For Toxin AB, published sensitivity is 87.8% and specificity 99.4% compared to cytotoxicity testing.Verification of kit performance was done by the [facility] Microbiology Lab prior to clinical use.POCT-GLUCOSE [id number] 08:57:00 Test Item Value Reference Range Comments POC-GLUCOSE METER (BEAKER) 159 mg/dL 70-110 TESTED AT [address] (test kpmb=6554) [place] [address] BLOOD [id number] 08:01:00 Test Item Value Reference Range Comments CULTURE (BEAKER) (test qlyv=7788) No growth in 5 days BLOOD [id number] 08:01:00 Test Item Value Reference Range Comments CULTURE (BEAKER) (test xeil=7672) No growth in 5 days BASIC METABOLIC [id number] 04:49:00 Test Item Value Reference Range Comments SODIUM (BEAKER) (test 137 meq/L 136-145 hphl=779) POTASSIUM (BEAKER) (test 3.9 meq/L 3.5-5.1 uiuw=879) CHLORIDE (BEAKER) (test 107 meq/L 98-107 itxi=806) CO2 (BEAKER) (test 24 meq/L 22-29 eica=884) BLOOD UREA NITROGEN 8 mg/dL 7-21 (BEAKER) (test pguk=260) CREATININE (BEAKER) (test 0.61 mg/dL 0.57-1.25 ztib=978) GLUCOSE RANDOM (BEAKER) 143 mg/dL 70-105 (test czxm=296) CALCIUM (BEAKER) (test 7.4 mg/dL 8.4-10.2 ohrf=179) EGFR (BEAKER) (test 156 mL/min/1.73 sq m ESTIMATED GFR IS NOT jipp=4316) ACCURATE CREATININE CLEARANCE IN PREDICTING GLOMERULAR FILTRATION RATE. ESTIMATED GFR IS NOT APPLICABLE FOR DIALYSIS PATIENTS. [id number] 04:29:00 Test Item Value Reference Range Comments PHOSPHORUS (BEAKER) (test yppd=136) 2.7 mg/dL 2.3-4.7 [id number] 04:29:00 Test Item Value Reference Range Comments MAGNESIUM (BEAKER) (test lygw=939) 2.2 mg/dL 1.6-2.6 CBC W/PLT COUNT & AUTO [id number] 04:14:00 Test Item Value Reference Range Comments WHITE BLOOD CELL COUNT (BEAKER) (test boaw=775) 8.5 K/ L 3.5-10.5 RED BLOOD CELL COUNT (BEAKER) (test ibar=872) 3.45 M/ L 4.63-6.08 HEMOGLOBIN (BEAKER) (test evnt=947) 9.9 GM/DL 13.7-17.5 HEMATOCRIT (BEAKER) (test gdkx=523) 30.8 % 40.1-51.0 MEAN CORPUSCULAR VOLUME (BEAKER) (test oozh=060) 89.3 fL 79.0-92.2 MEAN CORPUSCULAR HEMOGLOBIN (BEAKER) (test 28.7 pg 25.7-32.2 ghcn=630) MEAN CORPUSCULAR HEMOGLOBIN CONC (BEAKER) (test 32.1 GM/DL 32.3-36.5 mqag=441) RED CELL DISTRIBUTION WIDTH (BEAKER) (test 13.8 % 11.6-14.4 kdzb=319) PLATELET COUNT (BEAKER) (test ukrw=703) 317 K/CU MM 150-450 MEAN PLATELET VOLUME (BEAKER) (test kafo=055) 11.0 fL 9.4-12.4 NUCLEATED RED BLOOD CELLS (BEAKER) (test 0 /100 WBC 0-0 eypp=083) NEUTROPHILS RELATIVE PERCENT (BEAKER) (test 84 % lsma=167) LYMPHOCYTES RELATIVE PERCENT (BEAKER) (test 13 % nfbl=487) MONOCYTES RELATIVE PERCENT (BEAKER) (test 3 % yorh=550) EOSINOPHILS RELATIVE PERCENT (BEAKER) (test 0 % vcay=943) BASOPHILS RELATIVE PERCENT (BEAKER) (test 0 % fdcb=866) NEUTROPHILS ABSOLUTE COUNT (BEAKER) (test 7.13 K/ L 1.78-5.38 jbqu=216) LYMPHOCYTES ABSOLUTE COUNT (BEAKER) (test 1.06 K/ L 1.32-3.57 uqax=527) MONOCYTES ABSOLUTE COUNT (BEAKER) (test 0.25 K/ L 0.30-0.82 lacf=780) EOSINOPHILS ABSOLUTE COUNT (BEAKER) (test 0.00 K/ L 0.04-0.54 dnuq=546) BASOPHILS ABSOLUTE COUNT (BEAKER) (test 0.00 K/ L 0.01-0.08 kgby=531) IMMATURE GRANULOCYTES-RELATIVE PERCENT (BEAKER) 1 % 0-1 (test hhtv=1274) CALCIUM, [id number] 03:58:00 Test Item Value Reference Range Comments CALCIUM IONIZED (BEAKER) (test nxiw=199) 1.11 mmol/L 1.12-1.27 PH, BLOOD (BEAKER) (test bape=7276) 7.41 POCT-GLUCOSE [id number] 23:20:00 Test Item Value Reference Range Comments POC-GLUCOSE METER (BEAKER) 208 mg/dL 70-110 TESTED AT [address] (test uckq=2782) [place] [address] BASIC METABOLIC [id number] 18:01:00 Test Item Value Reference Range Comments SODIUM (BEAKER) (test 139 meq/L 136-145 tmra=184) POTASSIUM (BEAKER) (test 3.8 meq/L 3.5-5.1 gltv=388) CHLORIDE (BEAKER) (test 108 meq/L 98-107 jktu=961) CO2 (BEAKER) (test 26 meq/L 22-29 oofi=776) BLOOD UREA NITROGEN 8 mg/dL 7-21 (BEAKER) (test wbkj=101) CREATININE (BEAKER) (test 0.66 mg/dL 0.57-1.25 ybpv=115) GLUCOSE RANDOM (BEAKER) 157 mg/dL 70-105 (test cetw=792) CALCIUM (BEAKER) (test 7.7 mg/dL 8.4-10.2 odlc=694) EGFR (BEAKER) (test 143 mL/min/1.73 sq m ESTIMATED GFR IS NOT zhit=8259) ACCURATE CREATININE CLEARANCE IN PREDICTING GLOMERULAR FILTRATION RATE. ESTIMATED GFR IS NOT APPLICABLE FOR DIALYSIS PATIENTS. [id number] 18:00:00 Test Item Value Reference Range Comments TRIGLYCERIDES (BEAKER) (test mdpb=624) 125 mg/dL TRIGLYCERIDE REFERENCE RANGELow Risk <150Borderline Risk 150-199High Risk 200-499Very High Risk>=[id number] 18:00:00 Test Item Value Reference Range Comments MAGNESIUM (BEAKER) (test irmq=648) 1.6 mg/dL 1.6-2.6 CALCIUM, [id number] 17:46:00 Test Item Value Reference Range Comments CALCIUM IONIZED (BEAKER) (test btzc=677) 1.13 mmol/L 1.12-1.27 PH, BLOOD (BEAKER) (test sdss=1028) 7.41 POCT-GLUCOSE [id number] 17:45:00 Test Item Value Reference Range Comments POC-GLUCOSE METER (BEAKER) 173 mg/dL 70-110 TESTED AT [address] (test jzoq=5135) [place] [address] POCT-GLUCOSE [id number] 11:46:00 Test Item Value Reference Range Comments POC-GLUCOSE METER (BEAKER) 163 mg/dL 70-110 TESTED AT [facility] [address] [facility] (test xzfu=7332) [facility] [address] BASIC METABOLIC [id number] 09:43:00 Test Item Value Reference Range Comments SODIUM (BEAKER) (test 140 meq/L 136-145 dpsk=011) POTASSIUM (BEAKER) (test 3.3 meq/L 3.5-5.1 nhuw=440) CHLORIDE (BEAKER) (test 108 meq/L 98-107 dezs=429) CO2 (BEAKER) (test 27 meq/L 22-29 icqk=997) BLOOD UREA NITROGEN 9 mg/dL 7-21 (BEAKER) (test qskh=757) CREATININE (BEAKER) (test 0.65 mg/dL 0.57-1.25 adiv=713) GLUCOSE RANDOM (BEAKER) 151 mg/dL 70-105 (test hjuo=235) CALCIUM (BEAKER) (test 7.7 mg/dL 8.4-10.2 tvwd=001) EGFR (BEAKER) (test 145 mL/min/1.73 sq m ESTIMATED GFR IS NOT veaa=2963) ACCURATE CREATININE CLEARANCE IN PREDICTING GLOMERULAR FILTRATION RATE. ESTIMATED GFR IS NOT APPLICABLE FOR DIALYSIS PATIENTS. HEPATIC FUNCTION [id number] 09:43:00 Test Item Value Reference Range Comments TOTAL PROTEIN (BEAKER) (test fngx=831) 5.1 gm/dL 6.0-8.3 ALBUMIN (BEAKER) (test sjnd=8753) 2.3 g/dL 3.5-5.0 BILIRUBIN TOTAL (BEAKER) (test fhnt=494) 0.3 mg/dL 0.2-1.2 BILIRUBIN DIRECT (BEAKER) (test fosx=869) 0.3 mg/dL 0.1-0.5 ALKALINE PHOSPHATASE (BEAKER) (test okvy=937) 57 U/L 40-150 AST (SGOT) (BEAKER) (test kujo=464) 11 U/L 5-34 ALT (SGPT) (BEAKER) (test spnu=346) < U/L 6-55 CALCIUM, [id number] 09:39:00 Test Item Value Reference Range Comments CALCIUM IONIZED (BEAKER) (test vaxf=383) 1.07 mmol/L 1.12-1.27 PH, BLOOD (BEAKER) (test puqt=7846) 7.44 [id number] 09:26:00 Test Item Value Reference Range Comments PHOSPHORUS (BEAKER) (test aqzn=417) 2.3 mg/dL 2.3-4.7 [id number] 09:26:00 Test Item Value Reference Range Comments MAGNESIUM (BEAKER) (test sdgj=736) 1.2 mg/dL 1.6-2.6 CBC W/PLT COUNT & AUTO [id number] 09:07:00 Test Item Value Reference Range Comments WHITE BLOOD CELL COUNT (BEAKER) (test ruai=869) 13.5 K/ L 3.5-10.5 RED BLOOD CELL COUNT (BEAKER) (test nbvw=934) 3.62 M/ L 4.63-6.08 HEMOGLOBIN (BEAKER) (test okoz=077) 10.4 GM/DL 13.7-17.5 HEMATOCRIT (BEAKER) (test kxjv=259) 32.1 % 40.1-51.0 MEAN CORPUSCULAR VOLUME (BEAKER) (test kvfi=318) 88.7 fL 79.0-92.2 MEAN CORPUSCULAR HEMOGLOBIN (BEAKER) (test 28.7 pg 25.7-32.2 lhpd=992) MEAN CORPUSCULAR HEMOGLOBIN CONC (BEAKER) (test 32.4 GM/DL 32.3-36.5 orps=168) RED CELL DISTRIBUTION WIDTH (BEAKER) (test 13.6 % 11.6-14.4 nizx=463) PLATELET COUNT (BEAKER) (test lkxz=214) 323 K/CU MM 150-450 MEAN PLATELET VOLUME (BEAKER) (test arme=500) 11.0 fL 9.4-12.4 NUCLEATED RED BLOOD CELLS (BEAKER) (test 0 /100 WBC 0-0 ubdd=296) NEUTROPHILS RELATIVE PERCENT (BEAKER) (test 87 % vcwk=400) LYMPHOCYTES RELATIVE PERCENT (BEAKER) (test 8 % vbvu=656) MONOCYTES RELATIVE PERCENT (BEAKER) (test 5 % pken=577) EOSINOPHILS RELATIVE PERCENT (BEAKER) (test 0 % kgng=135) BASOPHILS RELATIVE PERCENT (BEAKER) (test 0 % wnlj=464) NEUTROPHILS ABSOLUTE COUNT (BEAKER) (test 11.73 K/ L 1.78-5.38 npmj=943) LYMPHOCYTES ABSOLUTE COUNT (BEAKER) (test 1.06 K/ L 1.32-3.57 opes=193) MONOCYTES ABSOLUTE COUNT (BEAKER) (test 0.62 K/ L 0.30-0.82 xhke=500) EOSINOPHILS ABSOLUTE COUNT (BEAKER) (test 0.00 K/ L 0.04-0.54 evyn=385) BASOPHILS ABSOLUTE COUNT (BEAKER) (test 0.01 K/ L 0.01-0.08 xuzv=019) IMMATURE GRANULOCYTES-RELATIVE PERCENT (BEAKER) 1 % 0-1 (test nekj=0797) POCT-GLUCOSE [id number] 06:10:00 Test Item Value Reference Range Comments POC-GLUCOSE METER (BEAKER) 170 mg/dL 70-110 TESTED AT [address] (test lhqq=1861) [place] [address] POCT-GLUCOSE [id number] 23:12:00 Test Item Value Reference Range Comments POC-GLUCOSE METER (BEAKER) 200 mg/dL 70-110 TESTED AT [address] (test euoh=5852) [place] [address] POCT-GLUCOSE [id number] 18:28:00 Test Item Value Reference Range Comments POC-GLUCOSE METER (BEAKER) 153 mg/dL 70-110 TESTED AT [address] (test aoln=4590) [facility] [address] RAD, CHEST, 1 VIEW, NON [id number] 17:19:00Reason for exam:->post central lineShould this be [...] MDReport Verified Date/Time: 07/13/2018 17:19:17 Reading Location: [facility] [id number] Ortho Consult Reading Room POCT-GLUCOSE [id number] 11:45:00 Test Item Value Reference Range Comments POC-GLUCOSE METER (BEAKER) 214 mg/dL 70-110 TESTED AT [facility] [address] [facility] (test gcvd=4818) [facility] [address] [address], [id number] 09:34:00NO PO or IV contrastFINAL REPORT CT [...] MDReport Verified Date/Time: 07/13/2018 09:34:48 Reading Location: [address] Reading Room POCT-GLUCOSE [id number] 06:40:00 Test Item Value Reference Range Comments POC-GLUCOSE METER (BEAKER) 189 mg/dL 70-110 TESTED AT [address] (test vpyi=4391) [facility] [address] RAD, CHEST, 1 VIEW, NON [id number] 01:21:00Reason for exam:->hypoxia, feverShould this be performed [...] upper quadrant pigtail catheter. Signed: Meghan Mota MDReport Verified Date/Time: 07/13/2018 01:21:43 Reading Location: [address] Reading Room Electronically signed by: MEGHAN MOTA MD on 2018 01:21 AMRAD, CHEST, 1 VIEW, NON [id number] 00:42:00Reason for exam:-&gt ;tachycardiaShould this be performed [...] Katie Darden Verified Date/Time: 07/13/2018 00:42:23 POCT-GLUCOSE [id number] 23:31:00 Test Item Value Reference Range Comments POC-GLUCOSE METER (BEAKER) 139 mg/dL 70-110 TESTED AT [address] (test chlj=0337) [place] [address] POCT-GLUCOSE [id number] 18:37:00 Test Item Value Reference Range Comments POC-GLUCOSE METER (BEAKER) 108 mg/dL 70-110 TESTED AT [address] (test crsc=8818) [place] [address] LACTIC ACID, [id number] 17:04:00 Test Item Value Reference Range Comments LACTATE BLOOD VENOUS (2) (BEAKER) (test 0.7 mmol/L 0.5-2.2 qrsu=6946) POCT-GLUCOSE [id number] 13:25:00 Test Item Value Reference Range Comments POC-GLUCOSE METER (BEAKER) 129 mg/dL 70-110 TESTED AT [address] (test mwmq=2483) [place] [address] WOUND CULTURE + GRAM [id number] 11:27:00 Test Item Value Reference Range Comments CULTURE (BEAKER) (test STAPHYLOCOCCUS AUREUS 4+ Staphylococcus qgcs=3274) aureus Clindamycin (test code=10) Erythromycin (test code=4) Linezolid (test code=40) Nitrofurantoin (test code=23) Oxacillin (test code=14) Rifampin (test code=43) Tetracycline (test code=2) Trimethoprim + Sulfamethoxazole (test code=47) Vancomycin (test code=13) GRAM STAIN RESULT 4+ White blood cells (BEAKER) (test apfg=1874) seen GRAM STAIN RESULT 1+ gram positive cocci (BEAKER) (test in pairs gkhg=871781) 4+ Skin floraPOCT-GLUCOSE [id number] 10:27:00 Test Item Value Reference Range Comments POC-GLUCOSE METER (BEAKER) 109 mg/dL 70-110 TESTED AT [facility] [address] [facility] (test izws=4403) [facility] [address] LACTIC ACID, [id number] 07:03:00 Test Item Value Reference Range Comments LACTATE BLOOD VENOUS (2) 0.9 mmol/L 0.5-2.2 Specimen slightly hemolyzed (BEAKER) (test dvuf=5985) RAD, ABDOMEN/KUB, 1 VIEW [id number] 02:12:00Reason for exam:->UPRIGHT assess for perf; abdomoinal [...] setting. Small left pleuraleffusion. Signed: Katie Darden [facility] Verified Date/ Time: 07/12/2018 02:12:57 POCT-LACTIC ACID, [id number] 02:11:00 Test Item Value Reference Range Comments POC-LACTIC ACID, VENOUS 1.5 mmol/L 0.9-1.7 TESTED AT [facility] [address] (BEAKER) (test ogsm=2546) [facility] [address] [id number] 02:11:00 Test Item Value Reference Range Comments POC-GLUCOSE (BEAKER) (test 106 mg/dL 70-110 TESTED AT [address] toql=8491) [place] [address] POCT-CALCIUM [id number] 02:11:00 Test Item Value Reference Range Comments POC-CALCIUM IONIZED (BEAKER) 1.15 mmol/L 1.12-1.27 TESTED AT [address] (test ttev=5464) [place] [address] [id number] 02:11:00 Test Item Value Reference Range Comments POC-HEMATOCRIT (BEAKER) (test 37 % 40-50 TESTED AT [address] unoi=6875) [place] [address] [id number] 02:11:00 Test Item Value Reference Range Comments POC-HEMOGLOBIN (BEAKER) 12.6 g/dL 13.0-16.8 TESTED AT [address] (test nxxh=5622) [place] [address]TESTED AT [place] [address] POCT-BLOOD GASES, [id number] 02:10:00 Test Item Value Reference Range Comments TEMP, CELSIUS-POC (BEAKER) 38.4 (test zwsf=0833) FIO2-POC (BEAKER) (test 21 TESTED AT [address] hind=1357) [place] [address] PH, VENOUS-POC (BEAKER) 7.362 7.320-7.420 (test pito=3778) PCO2, VENOUS-POC (BEAKER) 50.1 mm Hg 41.0-51.0 (test uiek=7370) PO2, VENOUS-POC (BEAKER) 21.0 mm Hg 25.0-40.0 (test zkqu=3149) SO2, VENOUS-POC (BEAKER) 29.0 % 40.0-70.0 (test dehf=1311) HCO3, VENOUS-POC (BEAKER) 28.0 meq/L 21.0-29.0 (test ztiy=0826) BASE EXCESS, VENOUS-POC 3.0 meq/L -2.0-3.0 (BEAKER) (test gcxl=0907) [id number] 02:10:00 Test Item Value Reference Range Comments POC-SODIUM (BEAKER) (test 139 meq/L 135-148 TESTED AT [address] ljtr=1399) [place] [address] [id number] 02:10:00 Test Item Value Reference Range Comments POC-POTASSIUM (BEAKER) (test 3.7 meq/L 3.6-5.5 TESTED AT [facility] [address] [facility] gwyh=8839) [facility] [address] HEPATIC FUNCTION [id number] 02:04:00 Test Item Value Reference Range Comments TOTAL PROTEIN (BEAKER) (test uygj=493) 6.2 gm/dL 6.0-8.3 ALBUMIN (BEAKER) (test vvdx=1445) 2.7 g/dL 3.5-5.0 BILIRUBIN TOTAL (BEAKER) (test waxw=591) 0.5 mg/dL 0.2-1.2 BILIRUBIN DIRECT (BEAKER) (test xcte=982) 0.3 mg/dL 0.1-0.5 ALKALINE PHOSPHATASE (BEAKER) (test viag=766) 86 U/L 40-150 AST (SGOT) (BEAKER) (test gxpo=252) 14 U/L 5-34 ALT (SGPT) (BEAKER) (test gzpw=923) 8 U/L 6-55 BASIC METABOLIC [id number] 02:04:00 Test Item Value Reference Range Comments SODIUM (BEAKER) (test 138 meq/L 136-145 mixl=390) POTASSIUM (BEAKER) (test 3.7 meq/L 3.5-5.1 byyl=501) CHLORIDE (BEAKER) (test 107 meq/L 98-107 exka=090) CO2 (BEAKER) (test 22 meq/L 22-29 ptqw=956) BLOOD UREA NITROGEN 3 mg/dL 7-21 (BEAKER) (test fxnn=993) CREATININE (BEAKER) (test 0.74 mg/dL 0.57-1.25 nwad=737) GLUCOSE RANDOM (BEAKER) 133 mg/dL 70-105 (test fubg=685) CALCIUM (BEAKER) (test 8.1 mg/dL 8.4-10.2 srum=463) EGFR (BEAKER) (test 125 mL/min/1.73 sq m ESTIMATED GFR IS NOT sadf=4401) ACCURATE CREATININE CLEARANCE IN PREDICTING GLOMERULAR FILTRATION RATE. ESTIMATED GFR IS NOT APPLICABLE FOR DIALYSIS PATIENTS. CBC W/PLT COUNT & AUTO [id number] 02:03:00 Test Item Value Reference Range Comments WHITE BLOOD CELL COUNT (BEAKER) (test umyb=896) 10.8 K/ L 3.5-10.5 RED BLOOD CELL COUNT (BEAKER) (test nbwd=448) 4.07 M/ L 4.63-6.08 HEMOGLOBIN (BEAKER) (test aizs=536) 11.8 GM/DL 13.7-17.5 HEMATOCRIT (BEAKER) (test chot=291) 37.3 % 40.1-51.0 MEAN CORPUSCULAR VOLUME (BEAKER) (test wrfk=204) 91.6 fL 79.0-92.2 MEAN CORPUSCULAR HEMOGLOBIN (BEAKER) (test 29.0 pg 25.7-32.2 knbw=577) MEAN CORPUSCULAR HEMOGLOBIN CONC (BEAKER) (test 31.6 GM/DL 32.3-36.5 babc=781) RED CELL DISTRIBUTION WIDTH (BEAKER) (test 13.8 % 11.6-14.4 xvep=912) PLATELET COUNT (BEAKER) (test oyxw=431) 295 K/CU MM 150-450 MEAN PLATELET VOLUME (BEAKER) (test uqly=999) 11.1 fL 9.4-12.4 NUCLEATED RED BLOOD CELLS (BEAKER) (test 0 /100 WBC 0-0 locz=516) NEUTROPHILS RELATIVE PERCENT (BEAKER) (test 84 % ybqx=436) LYMPHOCYTES RELATIVE PERCENT (BEAKER) (test 9 % txxz=513) MONOCYTES RELATIVE PERCENT (BEAKER) (test 6 % ldal=659) EOSINOPHILS RELATIVE PERCENT (BEAKER) (test 0 % gjld=703) BASOPHILS RELATIVE PERCENT (BEAKER) (test 0 % wnxs=240) NEUTROPHILS ABSOLUTE COUNT (BEAKER) (test 9.10 K/ L 1.78-5.38 emor=421) LYMPHOCYTES ABSOLUTE COUNT (BEAKER) (test 0.97 K/ L 1.32-3.57 qrzm=947) MONOCYTES ABSOLUTE COUNT (BEAKER) (test 0.68 K/ L 0.30-0.82 kywq=146) EOSINOPHILS ABSOLUTE COUNT (BEAKER) (test 0.01 K/ L 0.04-0.54 khug=878) BASOPHILS ABSOLUTE COUNT (BEAKER) (test 0.02 K/ L 0.01-0.08 lkqg=732) IMMATURE GRANULOCYTES-RELATIVE PERCENT (BEAKER) 0 % 0-1 (test ivqf=4126) POCT-GLUCOSE [id number] 00:17:00 Test Item Value Reference Range Comments POC-GLUCOSE METER (BEAKER) 137 mg/dL 70-110 TESTED AT [address] (test aoqz=0518) [facility] [id number] POCT-GLUCOSE [id number] 18:14:00 Test Item Value Reference Range Comments POC-GLUCOSE METER (BEAKER) 106 mg/dL 70-110 TESTED AT [address] (test ldss=0261) [place] [id number] VANCOMYCIN LEVEL, [id number] 14:20:00 Test Item Value Reference Range Comments VANCOMYCIN TROUGH (BEAKER) (test pquj=885) 7.1 ug/mL 10.0-20.0 If vancomycin trough level > 20 mcg/mL, hold next vancomycin dose, and contact MD and pharmacist.POCT-GLUCOSE [id number] 13:10:00 Test Item Value Reference Range Comments POC-GLUCOSE METER (BEAKER) 155 mg/dL 70-110 TESTED AT [address] (test lqzr=6943) [facility] [id number] HEPATIC FUNCTION [id number] 06:51:00 Test Item Value Reference Range Comments TOTAL PROTEIN (BEAKER) (test bwlg=816) 6.5 gm/dL 6.0-8.3 ALBUMIN (BEAKER) (test fvak=4314) 2.9 g/dL 3.5-5.0 BILIRUBIN TOTAL (BEAKER) (test uzcy=603) 0.4 mg/dL 0.2-1.2 BILIRUBIN DIRECT (BEAKER) (test dhgl=192) 0.2 mg/dL 0.1-0.5 ALKALINE PHOSPHATASE (BEAKER) (test vqlq=648) 94 U/L 40-150 AST (SGOT) (BEAKER) (test rswh=623) 14 U/L 5-34 ALT (SGPT) (BEAKER) (test dsvl=298) 11 U/L 6-55 BASIC METABOLIC [id number] 06:51:00 Test Item Value Reference Range Comments SODIUM (BEAKER) (test 138 meq/L 136-145 baun=180) POTASSIUM (BEAKER) (test 3.6 meq/L 3.5-5.1 arho=929) CHLORIDE (BEAKER) (test 106 meq/L 98-107 purp=617) CO2 (BEAKER) (test 24 meq/L 22-29 mbei=387) BLOOD UREA NITROGEN 3 mg/dL 7-21 (BEAKER) (test bneg=420) CREATININE (BEAKER) (test 0.68 mg/dL 0.57-1.25 ohuz=828) GLUCOSE RANDOM (BEAKER) 96 mg/dL 70-105 (test ufad=147) CALCIUM (BEAKER) (test 8.2 mg/dL 8.4-10.2 mrtv=475) EGFR (BEAKER) (test 138 mL/min/1.73 sq m ESTIMATED GFR IS NOT nlxj=3413) ACCURATE CREATININE CLEARANCE IN PREDICTING GLOMERULAR FILTRATION RATE. ESTIMATED GFR IS NOT APPLICABLE FOR DIALYSIS PATIENTS. CBC W/PLT COUNT & AUTO [id number] 05:32:00 Test Item Value Reference Range Comments WHITE BLOOD CELL COUNT (BEAKER) (test zmxo=543) 6.7 K/ L 3.5-10.5 RED BLOOD CELL COUNT (BEAKER) (test yedb=450) 4.03 M/ L 4.63-6.08 HEMOGLOBIN (BEAKER) (test jqwd=041) 11.6 GM/DL 13.7-17.5 HEMATOCRIT (BEAKER) (test akqt=591) 36.9 % 40.1-51.0 MEAN CORPUSCULAR VOLUME (BEAKER) (test qnrt=135) 91.6 fL 79.0-92.2 MEAN CORPUSCULAR HEMOGLOBIN (BEAKER) (test 28.8 pg 25.7-32.2 sutj=486) MEAN CORPUSCULAR HEMOGLOBIN CONC (BEAKER) (test 31.4 GM/DL 32.3-36.5 emgw=964) RED CELL DISTRIBUTION WIDTH (BEAKER) (test 13.7 % 11.6-14.4 ryuk=123) PLATELET COUNT (BEAKER) (test skey=761) 298 K/CU MM 150-450 MEAN PLATELET VOLUME (BEAKER) (test dwkg=649) 10.6 fL 9.4-12.4 NUCLEATED RED BLOOD CELLS (BEAKER) (test 0 /100 WBC 0-0 qqtj=051) NEUTROPHILS RELATIVE PERCENT (BEAKER) (test 67 % hais=723) LYMPHOCYTES RELATIVE PERCENT (BEAKER) (test 20 % norw=705) MONOCYTES RELATIVE PERCENT (BEAKER) (test 7 % eplp=107) EOSINOPHILS RELATIVE PERCENT (BEAKER) (test 4 % aadc=600) BASOPHILS RELATIVE PERCENT (BEAKER) (test 0 % csjc=448) NEUTROPHILS ABSOLUTE COUNT (BEAKER) (test 4.52 K/ L 1.78-5.38 poum=531) LYMPHOCYTES ABSOLUTE COUNT (BEAKER) (test 1.35 K/ L 1.32-3.57 oicl=714) MONOCYTES ABSOLUTE COUNT (BEAKER) (test 0.50 K/ L 0.30-0.82 wemr=122) EOSINOPHILS ABSOLUTE COUNT (BEAKER) (test 0.29 K/ L 0.04-0.54 qzkr=305) BASOPHILS ABSOLUTE COUNT (BEAKER) (test 0.03 K/ L 0.01-0.08 xcje=606) IMMATURE GRANULOCYTES-RELATIVE PERCENT (BEAKER) 0 % 0-1 (test hfcv=9407) [id number] 11:08:00 Test Item Value Reference Range Comments PARTIAL THROMBOPLASTIN TIME (BEAKER) (test 47.0 seconds 22.5-36.0 raos=706) PROTHROMBIN [id number] 11:07:00 Test Item Value Reference Range Comments PROTIME (BEAKER) (test dwup=109) 16.1 seconds 11.9-14.2 INR (BEAKER) (test udkc=186) 1.4 <=5.9 Effective 07/03/2018: PT Reference Range ChangeNew: 11.9-14.2 Previous: 11.7- 14.7RECOMMENDED COUMADIN/WARFARIN INR THERAPY RANGESSTANDARD DOSE: 2.0-3.0 Includes: PROPHYLAXIS for venous thrombosis, systemic embolization; TREATMENT for venous thrombosis and/or pulmonary embolus.HIGH RISK: Target INR is2.5-3.5 for patients wiht mechanical heart valves.HEPATIC FUNCTION [id number] 01:46 :00 Test Item Value Reference Range Comments TOTAL PROTEIN (BEAKER) (test djfr=310) 6.6 gm/dL 6.0-8.3 ALBUMIN (BEAKER) (test frla=2136) 3.0 g/dL 3.5-5.0 BILIRUBIN TOTAL (BEAKER) (test ryll=818) 0.5 mg/dL 0.2-1.2 BILIRUBIN DIRECT (BEAKER) (test jomh=056) 0.3 mg/dL 0.1-0.5 ALKALINE PHOSPHATASE (BEAKER) (test awub=862) 97 U/L 40-150 AST (SGOT) (BEAKER) (test cssm=413) 24 U/L 5-34 ALT (SGPT) (BEAKER) (test mhie=528) 16 U/L 6-55 BASIC METABOLIC [id number] 01:46:00 Test Item Value Reference Range Comments SODIUM (BEAKER) (test 139 meq/L 136-145 kedo=897) POTASSIUM (BEAKER) (test 3.7 meq/L 3.5-5.1 gvzy=410) CHLORIDE (BEAKER) (test 107 meq/L 98-107 gjet=644) CO2 (BEAKER) (test 24 meq/L 22-29 ehhy=803) BLOOD UREA NITROGEN 3 mg/dL 7-21 (BEAKER) (test fnwy=632) CREATININE (BEAKER) (test 0.68 mg/dL 0.57-1.25 zgfa=183) GLUCOSE RANDOM (BEAKER) 90 mg/dL 70-105 (test farf=921) CALCIUM (BEAKER) (test 8.6 mg/dL 8.4-10.2 ijgv=890) EGFR (BEAKER) (test 138 mL/min/1.73 sq m ESTIMATED GFR IS NOT xusu=8199) ACCURATE CREATININE CLEARANCE IN PREDICTING GLOMERULAR FILTRATION RATE. ESTIMATED GFR IS NOT APPLICABLE FOR DIALYSIS PATIENTS. CBC W/PLT COUNT & AUTO [id number] 01:19:00 Test Item Value Reference Range Comments WHITE BLOOD CELL COUNT (BEAKER) (test vtis=627) 9.9 K/ L 3.5-10.5 RED BLOOD CELL COUNT (BEAKER) (test ahfd=437) 4.00 M/ L 4.63-6.08 HEMOGLOBIN (BEAKER) (test fkhx=426) 11.7 GM/DL 13.7-17.5 HEMATOCRIT (BEAKER) (test lmgj=358) 36.1 % 40.1-51.0 MEAN CORPUSCULAR VOLUME (BEAKER) (test tgqf=084) 90.3 fL 79.0-92.2 MEAN CORPUSCULAR HEMOGLOBIN (BEAKER) (test 29.3 pg 25.7-32.2 tuza=926) MEAN CORPUSCULAR HEMOGLOBIN CONC (BEAKER) (test 32.4 GM/DL 32.3-36.5 fxet=316) RED CELL DISTRIBUTION WIDTH (BEAKER) (test 13.5 % 11.6-14.4 nexn=083) PLATELET COUNT (BEAKER) (test lmmf=117) 298 K/CU MM 150-450 MEAN PLATELET VOLUME (BEAKER) (test vwpe=173) 10.8 fL 9.4-12.4 NUCLEATED RED BLOOD CELLS (BEAKER) (test 0 /100 WBC 0-0 kbmq=896) NEUTROPHILS RELATIVE PERCENT (BEAKER) (test 71 % cpaq=200) LYMPHOCYTES RELATIVE PERCENT (BEAKER) (test 17 % gxxl=369) MONOCYTES RELATIVE PERCENT (BEAKER) (test 8 % cdua=906) EOSINOPHILS RELATIVE PERCENT (BEAKER) (test 3 % zlmq=234) BASOPHILS RELATIVE PERCENT (BEAKER) (test 1 % nwvl=759) NEUTROPHILS ABSOLUTE COUNT (BEAKER) (test 7.08 K/ L 1.78-5.38 wyur=103) LYMPHOCYTES ABSOLUTE COUNT (BEAKER) (test 1.69 K/ L 1.32-3.57 zkbk=509) MONOCYTES ABSOLUTE COUNT (BEAKER) (test 0.76 K/ L 0.30-0.82 ngdb=564) EOSINOPHILS ABSOLUTE COUNT (BEAKER) (test 0.32 K/ L 0.04-0.54 anti=094) BASOPHILS ABSOLUTE COUNT (BEAKER) (test 0.05 K/ L 0.01-0.08 yvko=798) IMMATURE GRANULOCYTES-RELATIVE PERCENT (BEAKER) 0 % 0-1 (test jxav=0558) BETA-2 GLYCOPROTEIN [id number] 08:02:00 Test Item Value Reference Range Comments B2 GLYCOPROTEIN AUTOVERIFICATION Refer to individual COMPONENT (test eoss=7004) B2-Glycoprotein IgG, IgM and IgA results. [id number] 07:34:00 Test Item Value Reference Range Comments MAGNESIUM (BEAKER) (test dont=157) 1.6 mg/dL 1.6-2.6 BASIC METABOLIC [id number] 07:34:00 Test Item Value Reference Range Comments SODIUM (BEAKER) (test 138 meq/L 136-145 otur=985) POTASSIUM (BEAKER) (test 4.4 meq/L 3.5-5.1 jefy=120) CHLORIDE (BEAKER) (test 102 meq/L 98-107 utux=601) CO2 (BEAKER) (test 24 meq/L 22-29 rvop=079) BLOOD UREA NITROGEN 7 mg/dL 7-21 (BEAKER) (test lekl=489) CREATININE (BEAKER) (test 0.80 mg/dL 0.57-1.25 bcft=461) GLUCOSE RANDOM (BEAKER) 93 mg/dL 70-105 (test teut=344) CALCIUM (BEAKER) (test 9.6 mg/dL 8.4-10.2 hcav=956) EGFR (BEAKER) (test 114 mL/min/1.73 sq m ESTIMATED GFR IS NOT byzl=1425) ACCURATE CREATININE CLEARANCE IN PREDICTING GLOMERULAR FILTRATION RATE. ESTIMATED GFR IS NOT APPLICABLE FOR DIALYSIS PATIENTS. HEPATIC FUNCTION [id number] 07:34:00 Test Item Value Reference Range Comments TOTAL PROTEIN (BEAKER) (test gfdg=101) 7.6 gm/dL 6.0-8.3 ALBUMIN (BEAKER) (test xkim=8466) 3.3 g/dL 3.5-5.0 BILIRUBIN TOTAL (BEAKER) (test hiwe=193) 0.7 mg/dL 0.2-1.2 BILIRUBIN DIRECT (BEAKER) (test lxae=641) 0.5 mg/dL 0.1-0.5 ALKALINE PHOSPHATASE (BEAKER) (test yzof=123) 105 U/L 40-150 AST (SGOT) (BEAKER) (test uuoe=149) 38 U/L 5-34 ALT (SGPT) (BEAKER) (test jcei=695) 41 U/L 6-55 [id number] 07:23:00 Test Item Value Reference Range Comments PROTIME (BEAKER) (test umqo=220) 14.8 seconds 11.7-14.7 INR (BEAKER) (test ssiw=220) 1.2 <=5.9 PARTIAL THROMBOPLASTIN TIME (BEAKER) (test 33.8 seconds 22.5-36.0 jmbu=958) RECOMMENDED COUMADIN/WARFARIN INR THERAPY RANGESSTANDARD DOSE: 2.0 - 3.0 Includes: PROPHYLAXIS forvenous thrombosis, systemic embolization; TREATMENT for venous thrombosis and/or pulmonary embolus.HIGH RISK: Target INR is 2.5-3.5 for patients with mechanical heart valves.CBC W/PLT COUNT & AUTO [id number] 07:19:00 Test Item Value Reference Range Comments WHITE BLOOD CELL COUNT (BEAKER) (test iqql=064) 11.2 K/ L 3.5-10.5 RED BLOOD CELL COUNT (BEAKER) (test sckt=910) 4.39 M/ L 4.63-6.08 HEMOGLOBIN (BEAKER) (test xlcx=132) 12.7 GM/DL 13.7-17.5 HEMATOCRIT (BEAKER) (test scav=750) 40.5 % 40.1-51.0 MEAN CORPUSCULAR VOLUME (BEAKER) (test xlnb=906) 92.3 fL 79.0-92.2 MEAN CORPUSCULAR HEMOGLOBIN (BEAKER) (test 28.9 pg 25.7-32.2 jvdo=774) MEAN CORPUSCULAR HEMOGLOBIN CONC (BEAKER) (test 31.4 GM/DL 32.3-36.5 hloc=996) RED CELL DISTRIBUTION WIDTH (BEAKER) (test 13.4 % 11.6-14.4 vzxu=735) PLATELET COUNT (BEAKER) (test jwch=224) 570 K/CU MM 150-450 MEAN PLATELET VOLUME (BEAKER) (test isfz=792) 10.5 fL 9.4-12.4 NUCLEATED RED BLOOD CELLS (BEAKER) (test 0 /100 WBC 0-0 kkeb=009) NEUTROPHILS RELATIVE PERCENT (BEAKER) (test 64 % nxfy=558) LYMPHOCYTES RELATIVE PERCENT (BEAKER) (test 20 % ecom=154) MONOCYTES RELATIVE PERCENT (BEAKER) (test 9 % hpec=413) EOSINOPHILS RELATIVE PERCENT (BEAKER) (test 5 % nqjr=829) BASOPHILS RELATIVE PERCENT (BEAKER) (test 1 % ymge=811) NEUTROPHILS ABSOLUTE COUNT (BEAKER) (test 7.13 K/ L 1.78-5.38 fsri=207) LYMPHOCYTES ABSOLUTE COUNT (BEAKER) (test 2.20 K/ L 1.32-3.57 aqhy=038) MONOCYTES ABSOLUTE COUNT (BEAKER) (test 0.95 K/ L 0.30-0.82 ehjj=253) EOSINOPHILS ABSOLUTE COUNT (BEAKER) (test 0.59 K/ L 0.04-0.54 iifb=853) BASOPHILS ABSOLUTE COUNT (BEAKER) (test 0.14 K/ L 0.01-0.08 jjqh=342) IMMATURE GRANULOCYTES-RELATIVE PERCENT (BEAKER) 2 % 0-1 (test akrv=4253) LUPUS ANTICOAGULANT SCREEN WITH REFLEX TO [id number] 09:29:00 Test Item Value Reference Range Comments DRVV SCREEN RATIO (BEAKER) 1.39 <1.20 (test fato=1965) DRVV CONFIRM RATIO (test 1.21 niww=2110) DRVV INTERPRETATION (BEAKER) Positive screen for Lupus (test qior=4943) Anticoagulant with hexagonal phospholipid confirmation. Suggest repeat testing in 12 weeks and when patient not receiving anticoagulant therapy. PROTIME (BEAKER) (test 19.6 seconds 11.7-14.7 zgyi=877) INR (BEAKER) (test yuji=627) 1.7 <=5.9 PARTIAL THROMBOPLASTIN TIME 57.5 seconds 22.5-36.0 (BEAKER) (test unfl=901) PTT-LA (BEAKER) (test 61.5 32.0-41.8 ubri=[id number]) [id number] (BEAKER) Christy Smith MD (test fxai=4920) (electronic signature) [id number] 08:06:00 Test Item Value Reference Range Comments MAGNESIUM (BEAKER) (test zxix=066) 1.7 mg/dL 1.6-2.6 BASIC METABOLIC [id number] 08:06:00 Test Item Value Reference Range Comments SODIUM (BEAKER) (test 135 meq/L 136-145 mcor=353) POTASSIUM (BEAKER) (test 4.1 meq/L 3.5-5.1 vxpk=652) CHLORIDE (BEAKER) (test 101 meq/L 98-107 ekcp=077) CO2 (BEAKER) (test 24 meq/L 22-29 qrqs=681) BLOOD UREA NITROGEN 6 mg/dL 7-21 (BEAKER) (test hosz=241) CREATININE (BEAKER) (test 0.81 mg/dL 0.57-1.25 eezu=400) GLUCOSE RANDOM (BEAKER) 101 mg/dL 70-105 (test kvup=596) CALCIUM (BEAKER) (test 9.3 mg/dL 8.4-10.2 bqcm=036) EGFR (BEAKER) (test 113 mL/min/1.73 sq m ESTIMATED GFR IS NOT npbd=7573) ACCURATE CREATININE CLEARANCE IN PREDICTING GLOMERULAR FILTRATION RATE. ESTIMATED GFR IS NOT APPLICABLE FOR DIALYSIS PATIENTS. HEPATIC FUNCTION [id number] 08:06:00 Test Item Value Reference Range Comments TOTAL PROTEIN (BEAKER) (test bvhz=684) 7.6 gm/dL 6.0-8.3 ALBUMIN (BEAKER) (test kxtu=7256) 3.2 g/dL 3.5-5.0 BILIRUBIN TOTAL (BEAKER) (test syoi=998) 0.7 mg/dL 0.2-1.2 BILIRUBIN DIRECT (BEAKER) (test rjez=971) 0.5 mg/dL 0.1-0.5 ALKALINE PHOSPHATASE (BEAKER) (test kwch=063) 108 U/L 40-150 AST (SGOT) (BEAKER) (test oocl=704) 37 U/L 5-34 ALT (SGPT) (BEAKER) (test ouhv=465) 39 U/L 6-55 CBC W/PLT COUNT & AUTO [id number] 07:58:00 Test Item Value Reference Range Comments WHITE BLOOD CELL COUNT (BEAKER) (test bfmi=753) 12.1 K/ L 3.5-10.5 RED BLOOD CELL COUNT (BEAKER) (test vnrr=594) 4.28 M/ L 4.63-6.08 HEMOGLOBIN (BEAKER) (test khgj=724) 12.3 GM/DL 13.7-17.5 HEMATOCRIT (BEAKER) (test vcnr=152) 38.9 % 40.1-51.0 MEAN CORPUSCULAR VOLUME (BEAKER) (test ivny=456) 90.9 fL 79.0-92.2 MEAN CORPUSCULAR HEMOGLOBIN (BEAKER) (test 28.7 pg 25.7-32.2 ewpg=100) MEAN CORPUSCULAR HEMOGLOBIN CONC (BEAKER) (test 31.6 GM/DL 32.3-36.5 wtiv=060) RED CELL DISTRIBUTION WIDTH (BEAKER) (test 13.3 % 11.6-14.4 lxlt=933) PLATELET COUNT (BEAKER) (test aqmj=742) 624 K/CU MM 150-450 MEAN PLATELET VOLUME (BEAKER) (test gfca=500) 10.4 fL 9.4-12.4 NUCLEATED RED BLOOD CELLS (BEAKER) (test 0 /100 WBC 0-0 cfxn=028) NEUTROPHILS RELATIVE PERCENT (BEAKER) (test 66 % pjds=923) LYMPHOCYTES RELATIVE PERCENT (BEAKER) (test 18 % ijnb=367) MONOCYTES RELATIVE PERCENT (BEAKER) (test 9 % dwfo=521) EOSINOPHILS RELATIVE PERCENT (BEAKER) (test 5 % nips=123) BASOPHILS RELATIVE PERCENT (BEAKER) (test 1 % lkjn=521) NEUTROPHILS ABSOLUTE COUNT (BEAKER) (test 7.94 K/ L 1.78-5.38 xfne=900) LYMPHOCYTES ABSOLUTE COUNT (BEAKER) (test 2.11 K/ L 1.32-3.57 qnfo=056) MONOCYTES ABSOLUTE COUNT (BEAKER) (test 1.13 K/ L 0.30-0.82 wtjn=826) EOSINOPHILS ABSOLUTE COUNT (BEAKER) (test 0.60 K/ L 0.04-0.54 byhz=682) BASOPHILS ABSOLUTE COUNT (BEAKER) (test 0.15 K/ L 0.01-0.08 bnqn=783) IMMATURE GRANULOCYTES-RELATIVE PERCENT (BEAKER) 1 % 0-1 (test ugtz=9166) PROTHROMBIN [id number] 07:26:00 Test Item Value Reference Range Comments PROTIME (BEAKER) (test ftlb=861) 14.5 seconds 11.7-14.7 INR (BEAKER) (test aeju=910) 1.2 <=5.9 RECOMMENDED COUMADIN/WARFARIN INR THERAPY RANGESSTANDARD DOSE: 2.0 - 3.0 Includes: PROPHYLAXIS forvenous thrombosis, systemic embolization; TREATMENT for venous thrombosis and/or pulmonary embolus.HIGH RISK: Target INR is 2.5-3.5 for patients with mechanical heart valves.PT/[id number] 07:26:00 Test Item Value Reference Range Comments PROTIME (BEAKER) (test iwsy=523) 14.5 seconds 11.7-14.7 INR (BEAKER) (test tjet=541) 1.2 <=5.9 PARTIAL THROMBOPLASTIN TIME (BEAKER) (test 38.9 seconds 22.5-36.0 ebnw=104) RECOMMENDED COUMADIN/WARFARIN INR THERAPY RANGESSTANDARD DOSE: 2.0 - 3.0 Includes: PROPHYLAXIS forvenous thrombosis, systemic embolization; TREATMENT for venous thrombosis and/or pulmonary embolus.HIGH RISK: Target INR is 2.5-3.5 for patients with mechanical heart valves.HEXAGONAL [id number] 14:07 :00 Test Item Value Reference Range Comments HEXAGONAL PHOSPHOLIPID (BEAKER) (test vzup=6875) Positive 1:1 MIXING STUDY, [id number] 09:07:00 Test Item Value Reference Range Comments PROTIME (BEAKER) (test kxtd=330) 19.6 seconds 11.7-14.7 PARTIAL THROMBOPLASTIN TIME (BEAKER) (test 57.5 seconds 22.5-36.0 wbyy=485) PT 1/1 MIX (BEAKER) (test fwco=6069) 14.4 SECS 11.7-14.7 PTT 1/1 MIX (BEAKER) (test ffzg=5048) 41.9 SECS 22.5-36.0 PT/[id number] 07:05:00 Test Item Value Reference Range Comments PROTIME (BEAKER) (test durp=444) 16.9 seconds 11.7-14.7 INR (BEAKER) (test mowx=550) 1.4 <=5.9 PARTIAL THROMBOPLASTIN TIME (BEAKER) (test 43.7 seconds 22.5-36.0 jvtj=129) RECOMMENDED COUMADIN/WARFARIN INR THERAPY RANGESSTANDARD DOSE: 2.0 - 3.0 Includes: PROPHYLAXIS forvenous thrombosis, systemic embolization; TREATMENT for venous thrombosis and/or pulmonary embolus.HIGH RISK: Target INR is 2.5-3.5 for patients with mechanical heart valves.PROTHROMBIN [id number] 07:04: 00 Test Item Value Reference Range Comments PROTIME (BEAKER) (test dqcj=993) 16.9 seconds 11.7-14.7 INR (BEAKER) (test jwro=529) 1.4 <=5.9 RECOMMENDED COUMADIN/WARFARIN INR THERAPY RANGESSTANDARD DOSE: 2.0 - 3.0 Includes: PROPHYLAXIS forvenous thrombosis, systemic embolization; TREATMENT for venous thrombosis and/or pulmonary embolus.HIGH RISK: Target INR is 2.5-3.5 for patients with mechanical heart valves.[id number] 06:49:00 Test Item Value Reference Range Comments MAGNESIUM (BEAKER) (test ivzp=273) 1.7 mg/dL 1.6-2.6 BASIC METABOLIC [id number] 06:49:00 Test Item Value Reference Range Comments SODIUM (BEAKER) (test 135 meq/L 136-145 znhl=351) POTASSIUM (BEAKER) (test 4.2 meq/L 3.5-5.1 bzzy=287) CHLORIDE (BEAKER) (test 101 meq/L 98-107 khvi=175) CO2 (BEAKER) (test 25 meq/L 22-29 eiuq=447) BLOOD UREA NITROGEN 6 mg/dL 7-21 (BEAKER) (test dwdm=647) CREATININE (BEAKER) (test 0.73 mg/dL 0.57-1.25 vfeg=161) GLUCOSE RANDOM (BEAKER) 96 mg/dL 70-105 (test ztqg=495) CALCIUM (BEAKER) (test 9.0 mg/dL 8.4-10.2 bftm=553) EGFR (BEAKER) (test 127 mL/min/1.73 sq m ESTIMATED GFR IS NOT kuiz=9297) ACCURATE CREATININE CLEARANCE IN PREDICTING GLOMERULAR FILTRATION RATE. ESTIMATED GFR IS NOT APPLICABLE FOR DIALYSIS PATIENTS. HEPATIC FUNCTION [id number] 06:49:00 Test Item Value Reference Range Comments TOTAL PROTEIN (BEAKER) (test ttoj=636) 7.3 gm/dL 6.0-8.3 ALBUMIN (BEAKER) (test bnua=5381) 3.0 g/dL 3.5-5.0 BILIRUBIN TOTAL (BEAKER) (test bozy=134) 0.8 mg/dL 0.2-1.2 BILIRUBIN DIRECT (BEAKER) (test whwy=936) 0.5 mg/dL 0.1-0.5 ALKALINE PHOSPHATASE (BEAKER) (test poue=451) 108 U/L 40-150 AST (SGOT) (BEAKER) (test hobx=275) 40 U/L 5-34 ALT (SGPT) (BEAKER) (test easb=982) 42 U/L 6-55 CBC W/PLT COUNT & AUTO [id number] 06:36:00 Test Item Value Reference Range Comments WHITE BLOOD CELL COUNT (BEAKER) (test adxv=336) 10.1 K/ L 3.5-10.5 RED BLOOD CELL COUNT (BEAKER) (test huzr=906) 4.19 M/ L 4.63-6.08 HEMOGLOBIN (BEAKER) (test mwdt=738) 12.1 GM/DL 13.7-17.5 HEMATOCRIT (BEAKER) (test zagf=825) 38.7 % 40.1-51.0 MEAN CORPUSCULAR VOLUME (BEAKER) (test qbwp=048) 92.4 fL 79.0-92.2 MEAN CORPUSCULAR HEMOGLOBIN (BEAKER) (test 28.9 pg 25.7-32.2 bklh=780) MEAN CORPUSCULAR HEMOGLOBIN CONC (BEAKER) (test 31.3 GM/DL 32.3-36.5 kaqz=527) RED CELL DISTRIBUTION WIDTH (BEAKER) (test 13.3 % 11.6-14.4 hrym=463) PLATELET COUNT (BEAKER) (test pkbc=509) 582 K/CU MM 150-450 MEAN PLATELET VOLUME (BEAKER) (test sjxs=064) 10.7 fL 9.4-12.4 NUCLEATED RED BLOOD CELLS (BEAKER) (test 0 /100 WBC 0-0 qkmx=818) NEUTROPHILS RELATIVE PERCENT (BEAKER) (test 66 % bcfw=698) LYMPHOCYTES RELATIVE PERCENT (BEAKER) (test 18 % vtci=385) MONOCYTES RELATIVE PERCENT (BEAKER) (test 8 % aimx=514) EOSINOPHILS RELATIVE PERCENT (BEAKER) (test 5 % nydq=813) BASOPHILS RELATIVE PERCENT (BEAKER) (test 1 % snpq=162) NEUTROPHILS ABSOLUTE COUNT (BEAKER) (test 6.68 K/ L 1.78-5.38 hdsm=807) LYMPHOCYTES ABSOLUTE COUNT (BEAKER) (test 1.80 K/ L 1.32-3.57 arya=901) MONOCYTES ABSOLUTE COUNT (BEAKER) (test 0.81 K/ L 0.30-0.82 lcat=987) EOSINOPHILS ABSOLUTE COUNT (BEAKER) (test 0.52 K/ L 0.04-0.54 eodf=634) BASOPHILS ABSOLUTE COUNT (BEAKER) (test 0.11 K/ L 0.01-0.08 vrdo=624) IMMATURE GRANULOCYTES-RELATIVE PERCENT (BEAKER) 1 % 0-1 (test lkna=4369) CARDIOLIPIN ANTIBODIES, IGG AND [id number] 06:24:00 Test Item Value Reference Range Comments ANTICARDIOLIPIN IGG ANTIBODY (BEAKER) (test < GPL <20.0 tova=167) ANTICARDIOLIPIN IGM ANTIBODY (BEAKER) (test 0.2 MPL <20.0 rfuc=520) Anticardiolipin IgG Result Interpretation: <20.0 GPL Normal>/=20.0 GPL PositiveAnticardiolipin IgM Result Interpretation: <20.0 MPL Normal>/= 20.0 MPL PositiveTHROMBIN [id number] 13:45:00 Test Item Value Reference Range Comments THROMBIN TIME (BEAKER) (test qjfh=793) 17.2 secs 13.8-20.0 [id number] 12:46:00 Test Item Value Reference Range Comments FIBRINOGEN LEVEL (BEAKER) (test jyyq=552) 762 mg/dl 225-434 [id number] 10:48:00 Test Item Value Reference Range Comments MAGNESIUM (BEAKER) (test ztod=429) 1.7 mg/dL 1.6-2.6 BASIC METABOLIC [id number] 10:48:00 Test Item Value Reference Range Comments SODIUM (BEAKER) (test 139 meq/L 136-145 ztsz=932) POTASSIUM (BEAKER) (test 4.2 meq/L 3.5-5.1 bisn=164) CHLORIDE (BEAKER) (test 102 meq/L 98-107 lwee=997) CO2 (BEAKER) (test 26 meq/L 22-29 iinz=685) BLOOD UREA NITROGEN 6 mg/dL 7-21 (BEAKER) (test skea=528) CREATININE (BEAKER) (test 0.75 mg/dL 0.57-1.25 tfkw=344) GLUCOSE RANDOM (BEAKER) 160 mg/dL 70-105 (test dave=227) CALCIUM (BEAKER) (test 9.3 mg/dL 8.4-10.2 wrcv=654) EGFR (BEAKER) (test 123 mL/min/1.73 sq m ESTIMATED GFR IS NOT jntj=0801) ACCURATE CREATININE CLEARANCE IN PREDICTING GLOMERULAR FILTRATION RATE. ESTIMATED GFR IS NOT APPLICABLE FOR DIALYSIS PATIENTS. HEPATIC FUNCTION [id number] 10:48:00 Test Item Value Reference Range Comments TOTAL PROTEIN (BEAKER) (test ceft=411) 7.3 gm/dL 6.0-8.3 ALBUMIN (BEAKER) (test uotm=8567) 3.0 g/dL 3.5-5.0 BILIRUBIN TOTAL (BEAKER) (test bibf=245) 0.7 mg/dL 0.2-1.2 BILIRUBIN DIRECT (BEAKER) (test vnji=585) 0.5 mg/dL 0.1-0.5 ALKALINE PHOSPHATASE (BEAKER) (test vcnl=990) 112 U/L 40-150 AST (SGOT) (BEAKER) (test lxhk=616) 47 U/L 5-34 ALT (SGPT) (BEAKER) (test tukg=656) 50 U/L 6-55 [id number] 06:40:00 Test Item Value Reference Range Comments PROTIME (BEAKER) (test hlfv=150) 18.8 seconds 11.7-14.7 INR (BEAKER) (test qlqy=081) 1.7 <=5.9 PARTIAL THROMBOPLASTIN TIME (BEAKER) (test 52.3 seconds 22.5-36.0 elgs=334) RECOMMENDED COUMADIN/WARFARIN INR THERAPY RANGESSTANDARD DOSE: 2.0 - 3.0 Includes: PROPHYLAXIS forvenous thrombosis, systemic embolization; TREATMENT for venous thrombosis and/or pulmonary embolus.HIGH RISK: Target INR is 2.5-3.5 for patients with mechanical heart valves.PROTHROMBIN [id number] 06:39: 00 Test Item Value Reference Range Comments PROTIME (BEAKER) (test sehi=104) 18.8 seconds 11.7-14.7 INR (BEAKER) (test vnzy=903) 1.7 <=5.9 RECOMMENDED COUMADIN/WARFARIN INR THERAPY RANGESSTANDARD DOSE: 2.0 - 3.0 Includes: PROPHYLAXIS forvenous thrombosis, systemic embolization; TREATMENT for venous thrombosis and/or pulmonary embolus.HIGH RISK: Target INR is 2.5-3.5 for patients with mechanical heart valves.CBC W/PLT COUNT & AUTO [id number] 06:34:00 Test Item Value Reference Range Comments WHITE BLOOD CELL COUNT (BEAKER) (test bage=578) 9.3 K/ L 3.5-10.5 RED BLOOD CELL COUNT (BEAKER) (test ztjq=102) 3.78 M/ L 4.63-6.08 HEMOGLOBIN (BEAKER) (test ytuy=012) 11.0 GM/DL 13.7-17.5 HEMATOCRIT (BEAKER) (test ptrf=645) 35.0 % 40.1-51.0 MEAN CORPUSCULAR VOLUME (BEAKER) (test idvr=330) 92.6 fL 79.0-92.2 MEAN CORPUSCULAR HEMOGLOBIN (BEAKER) (test 29.1 pg 25.7-32.2 cuyt=009) MEAN CORPUSCULAR HEMOGLOBIN CONC (BEAKER) (test 31.4 GM/DL 32.3-36.5 mqav=361) RED CELL DISTRIBUTION WIDTH (BEAKER) (test 13.5 % 11.6-14.4 xbhm=554) PLATELET COUNT (BEAKER) (test hmqk=550) 517 K/CU MM 150-450 MEAN PLATELET VOLUME (BEAKER) (test cgyt=142) 10.5 fL 9.4-12.4 NUCLEATED RED BLOOD CELLS (BEAKER) (test 0 /100 WBC 0-0 yvhk=090) NEUTROPHILS RELATIVE PERCENT (BEAKER) (test 64 % duzy=169) LYMPHOCYTES RELATIVE PERCENT (BEAKER) (test 20 % ictb=828) MONOCYTES RELATIVE PERCENT (BEAKER) (test 9 % vdyf=832) EOSINOPHILS RELATIVE PERCENT (BEAKER) (test 6 % pnrt=424) BASOPHILS RELATIVE PERCENT (BEAKER) (test 1 % qric=112) NEUTROPHILS ABSOLUTE COUNT (BEAKER) (test 5.90 K/ L 1.78-5.38 dgcu=719) LYMPHOCYTES ABSOLUTE COUNT (BEAKER) (test 1.84 K/ L 1.32-3.57 jkto=754) MONOCYTES ABSOLUTE COUNT (BEAKER) (test 0.82 K/ L 0.30-0.82 lphh=464) EOSINOPHILS ABSOLUTE COUNT (BEAKER) (test 0.53 K/ L 0.04-0.54 prqf=740) BASOPHILS ABSOLUTE COUNT (BEAKER) (test 0.09 K/ L 0.01-0.08 wecv=691) IMMATURE GRANULOCYTES-RELATIVE PERCENT (BEAKER) 1 % 0-1 (test pqjn=2997) [id number] 06:48:00 Test Item Value Reference Range Comments MAGNESIUM (BEAKER) (test ccih=345) 1.9 mg/dL 1.6-2.6 BASIC METABOLIC [id number] 06:48:00 Test Item Value Reference Range Comments SODIUM (BEAKER) (test 137 meq/L 136-145 ljsl=205) POTASSIUM (BEAKER) (test 4.0 meq/L 3.5-5.1 jitj=450) CHLORIDE (BEAKER) (test 102 meq/L 98-107 fsuu=196) CO2 (BEAKER) (test 29 meq/L 22-29 ddzb=611) BLOOD UREA NITROGEN 6 mg/dL 7-21 (BEAKER) (test wxjs=276) CREATININE (BEAKER) (test 0.69 mg/dL 0.57-1.25 kllv=934) GLUCOSE RANDOM (BEAKER) 116 mg/dL 70-105 (test ldyk=457) CALCIUM (BEAKER) (test 8.7 mg/dL 8.4-10.2 rxic=436) EGFR (BEAKER) (test 136 mL/min/1.73 sq m ESTIMATED GFR IS NOT tvpq=2217) ACCURATE CREATININE CLEARANCE IN PREDICTING GLOMERULAR FILTRATION RATE. ESTIMATED GFR IS NOT APPLICABLE FOR DIALYSIS PATIENTS. HEPATIC FUNCTION [id number] 06:48:00 Test Item Value Reference Range Comments TOTAL PROTEIN (BEAKER) (test qvvo=384) 6.2 gm/dL 6.0-8.3 ALBUMIN (BEAKER) (test lche=5448) 2.5 g/dL 3.5-5.0 BILIRUBIN TOTAL (BEAKER) (test lskx=214) 0.6 mg/dL 0.2-1.2 BILIRUBIN DIRECT (BEAKER) (test mtck=060) 0.5 mg/dL 0.1-0.5 ALKALINE PHOSPHATASE (BEAKER) (test unrc=469) 102 U/L 40-150 AST (SGOT) (BEAKER) (test acps=586) 48 U/L 5-34 ALT (SGPT) (BEAKER) (test eyjc=370) 50 U/L 6-55 [id number] 06:31:00 Test Item Value Reference Range Comments PROTIME (BEAKER) (test xbqn=339) 21.1 seconds 11.7-14.7 INR (BEAKER) (test ucic=313) 1.9 <=5.9 PARTIAL THROMBOPLASTIN TIME (BEAKER) (test 58.0 seconds 22.5-36.0 redd=426) RECOMMENDED COUMADIN/WARFARIN INR THERAPY RANGESSTANDARD DOSE: 2.0 - 3.0 Includes: PROPHYLAXIS forvenous thrombosis, systemic embolization; TREATMENT for venous thrombosis and/or pulmonary embolus.HIGH RISK: Target INR is 2.5-3.5 for patients with mechanical heart valves.PROTHROMBIN [id number] 06:30: 00 Test Item Value Reference Range Comments PROTIME (BEAKER) (test hvhc=888) 21.1 seconds 11.7-14.7 INR (BEAKER) (test ddrt=331) 1.9 <=5.9 RECOMMENDED COUMADIN/WARFARIN INR THERAPY RANGESSTANDARD DOSE: 2.0 - 3.0 Includes: PROPHYLAXIS forvenous thrombosis, systemic embolization; TREATMENT for venous thrombosis and/or pulmonary embolus.HIGH RISK: Target INR is 2.5-3.5 for patients with mechanical heart valves.CBC W/PLT COUNT & AUTO [id number] 06:11:00 Test Item Value Reference Range Comments WHITE BLOOD CELL COUNT (BEAKER) (test mozp=272) 10.3 K/ L 3.5-10.5 RED BLOOD CELL COUNT (BEAKER) (test iirj=257) 3.56 M/ L 4.63-6.08 HEMOGLOBIN (BEAKER) (test soak=995) 10.4 GM/DL 13.7-17.5 HEMATOCRIT (BEAKER) (test tmmy=698) 33.3 % 40.1-51.0 MEAN CORPUSCULAR VOLUME (BEAKER) (test arjz=298) 93.5 fL 79.0-92.2 MEAN CORPUSCULAR HEMOGLOBIN (BEAKER) (test 29.2 pg 25.7-32.2 tayl=194) MEAN CORPUSCULAR HEMOGLOBIN CONC (BEAKER) (test 31.2 GM/DL 32.3-36.5 iain=865) RED CELL DISTRIBUTION WIDTH (BEAKER) (test 13.7 % 11.6-14.4 lajd=627) PLATELET COUNT (BEAKER) (test sirr=247) 487 K/CU MM 150-450 MEAN PLATELET VOLUME (BEAKER) (test ztyb=181) 10.6 fL 9.4-12.4 NUCLEATED RED BLOOD CELLS (BEAKER) (test 0 /100 WBC 0-0 fiqa=718) NEUTROPHILS RELATIVE PERCENT (BEAKER) (test 66 % nzup=917) LYMPHOCYTES RELATIVE PERCENT (BEAKER) (test 18 % cgqy=226) MONOCYTES RELATIVE PERCENT (BEAKER) (test 10 % wqjv=109) EOSINOPHILS RELATIVE PERCENT (BEAKER) (test 4 % kzyr=975) BASOPHILS RELATIVE PERCENT (BEAKER) (test 1 % hxov=050) NEUTROPHILS ABSOLUTE COUNT (BEAKER) (test 6.87 K/ L 1.78-5.38 rsua=631) LYMPHOCYTES ABSOLUTE COUNT (BEAKER) (test 1.81 K/ L 1.32-3.57 jakl=929) MONOCYTES ABSOLUTE COUNT (BEAKER) (test 1.00 K/ L 0.30-0.82 bldn=683) EOSINOPHILS ABSOLUTE COUNT (BEAKER) (test 0.45 K/ L 0.04-0.54 luhw=620) BASOPHILS ABSOLUTE COUNT (BEAKER) (test 0.06 K/ L 0.01-0.08 kpkf=361) IMMATURE GRANULOCYTES-RELATIVE PERCENT (BEAKER) 1 % 0-1 (test rsco=8928) RAD, CHEST, 1 VIEW, NON [id number] 18:34:00Reason for exam:->SOBShould this be performed at [...] MDReport Verified Date/Time: 06/11/2018 18:34:14 Reading Location: [facility] [id number] Consult Reading Room B-TYPE NATRIURETIC FACTOR (BNP)2018-06-11 15:45:00 Test Item Value Reference Range Comments B-TYPE NATRIURETIC PEPTIDE (BEAKER) (test zdpa=954) < pg/mL 0-100 PT/[id number] 06:36:00 Test Item Value Reference Range Comments PROTIME (BEAKER) (test jfmx=411) 21.5 seconds 11.7-14.7 INR (BEAKER) (test immh=093) 2.0 <=5.9 PARTIAL THROMBOPLASTIN TIME (BEAKER) (test 60.3 seconds 22.5-36.0 yfei=166) RECOMMENDED COUMADIN/WARFARIN INR THERAPY RANGESSTANDARD DOSE: 2.0 - 3.0 Includes: PROPHYLAXIS forvenous thrombosis, systemic embolization; TREATMENT for venous thrombosis and/or pulmonary embolus.HIGH RISK: Target INR is 2.5-3.5 for patients with mechanical heart valves.PROTHROMBIN [id number] 06:35: 00 Test Item Value Reference Range Comments PROTIME (BEAKER) (test ymhs=986) 21.5 seconds 11.7-14.7 INR (BEAKER) (test nosw=490) 2.0 <=5.9 RECOMMENDED COUMADIN/WARFARIN INR THERAPY RANGESSTANDARD DOSE: 2.0 - 3.0 Includes: PROPHYLAXIS forvenous thrombosis, systemic embolization; TREATMENT for venous thrombosis and/or pulmonary embolus.HIGH RISK: Target INR is 2.5-3.5 for patients with mechanical heart valves.[id number] 06:29:00 Test Item Value Reference Range Comments MAGNESIUM (BEAKER) (test 1.9 mg/dL 1.6-2.6 Specimen slightly hemolyzed ccyw=533) BASIC METABOLIC [id number] 06:29:00 Test Item Value Reference Range Comments SODIUM (BEAKER) (test 136 meq/L 136-145 uvoq=941) POTASSIUM (BEAKER) (test 4.0 meq/L 3.5-5.1 Specimen slightly jwze=901) hemolyzed CHLORIDE (BEAKER) (test 100 meq/L 98-107 ljwy=705) CO2 (BEAKER) (test 30 meq/L 22-29 nlnt=825) BLOOD UREA NITROGEN 6 mg/dL 7-21 (BEAKER) (test dikh=445) CREATININE (BEAKER) (test 0.70 mg/dL 0.57-1.25 Specimen slightly bdic=996) hemolyzed GLUCOSE RANDOM (BEAKER) 114 mg/dL 70-105 (test aylp=807) CALCIUM (BEAKER) (test 8.4 mg/dL 8.4-10.2 iolh=407) EGFR (BEAKER) (test 133 mL/min/1.73 sq m ESTIMATED GFR IS NOT vftz=4597) ACCURATE CREATININE CLEARANCE IN PREDICTING GLOMERULAR FILTRATION RATE. ESTIMATED GFR IS NOT APPLICABLE FOR DIALYSIS PATIENTS. HEPATIC FUNCTION [id number] 06:29:00 Test Item Value Reference Range Comments TOTAL PROTEIN (BEAKER) (test 6.2 gm/dL 6.0-8.3 Specimen slightly hemolyzed ytka=209) ALBUMIN (BEAKER) (test 2.4 g/dL 3.5-5.0 Specimen slightly hemolyzed kswf=6323) BILIRUBIN TOTAL (BEAKER) (test 0.7 mg/dL 0.2-1.2 Specimen slightly hemolyzed ugxy=647) BILIRUBIN DIRECT (BEAKER) (test 0.3 mg/dL 0.1-0.5 Specimen slightly hemolyzed wfrs=274) ALKALINE PHOSPHATASE (BEAKER) 105 U/L 40-150 (test qnsf=872) AST (SGOT) (BEAKER) (test 56 U/L 5-34 Specimen slightly hemolyzed dywb=130) ALT (SGPT) (BEAKER) (test 51 U/L 6-55 Specimen slightly hemolyzed hnbu=261) CBC W/PLT COUNT & AUTO [id number] 06:00:00 Test Item Value Reference Range Comments WHITE BLOOD CELL COUNT (BEAKER) (test essk=097) 10.8 K/ L 3.5-10.5 RED BLOOD CELL COUNT (BEAKER) (test obsm=017) 3.49 M/ L 4.63-6.08 HEMOGLOBIN (BEAKER) (test ytyi=340) 10.4 GM/DL 13.7-17.5 HEMATOCRIT (BEAKER) (test cznn=842) 32.7 % 40.1-51.0 MEAN CORPUSCULAR VOLUME (BEAKER) (test spse=755) 93.7 fL 79.0-92.2 MEAN CORPUSCULAR HEMOGLOBIN (BEAKER) (test 29.8 pg 25.7-32.2 lbxp=378) MEAN CORPUSCULAR HEMOGLOBIN CONC (BEAKER) (test 31.8 GM/DL 32.3-36.5 amzs=614) RED CELL DISTRIBUTION WIDTH (BEAKER) (test 14.0 % 11.6-14.4 dwaj=869) PLATELET COUNT (BEAKER) (test ised=153) 497 K/CU MM 150-450 MEAN PLATELET VOLUME (BEAKER) (test pzsa=720) 10.7 fL 9.4-12.4 NUCLEATED RED BLOOD CELLS (BEAKER) (test 0 /100 WBC 0-0 ucpq=102) NEUTROPHILS RELATIVE PERCENT (BEAKER) (test 68 % avgv=460) LYMPHOCYTES RELATIVE PERCENT (BEAKER) (test 17 % vdcx=396) MONOCYTES RELATIVE PERCENT (BEAKER) (test 10 % ripb=410) EOSINOPHILS RELATIVE PERCENT (BEAKER) (test 3 % omgk=909) BASOPHILS RELATIVE PERCENT (BEAKER) (test 1 % utkg=119) NEUTROPHILS ABSOLUTE COUNT (BEAKER) (test 7.27 K/ L 1.78-5.38 dtnu=953) LYMPHOCYTES ABSOLUTE COUNT (BEAKER) (test 1.87 K/ L 1.32-3.57 zccf=757) MONOCYTES ABSOLUTE COUNT (BEAKER) (test 1.04 K/ L 0.30-0.82 tcgj=814) EOSINOPHILS ABSOLUTE COUNT (BEAKER) (test 0.37 K/ L 0.04-0.54 ywcv=287) BASOPHILS ABSOLUTE COUNT (BEAKER) (test 0.07 K/ L 0.01-0.08 rrab=654) IMMATURE GRANULOCYTES-RELATIVE PERCENT (BEAKER) 1 % 0-1 (test axln=4875) BODY FLUID CULTURE + GRAM [id number] 18:11:00 Test Item Value Reference Range Comments CULTURE (BEAKER) (test fmkg=7384) No growth GRAM STAIN RESULT (BEAKER) (test <1+ White blood cells seen tquu=4014) GRAM STAIN RESULT (BEAKER) (test No organisms seen oykb=66451) [id number] 07:01:00 Test Item Value Reference Range Comments MAGNESIUM (BEAKER) (test knqy=498) 1.9 mg/dL 1.6-2.6 BASIC METABOLIC [id number] 07:01:00 Test Item Value Reference Range Comments SODIUM (BEAKER) (test 138 meq/L 136-145 ivat=213) POTASSIUM (BEAKER) (test 3.8 meq/L 3.5-5.1 tqio=930) CHLORIDE (BEAKER) (test 102 meq/L 98-107 ftex=030) CO2 (BEAKER) (test 29 meq/L 22-29 wyuk=647) BLOOD UREA NITROGEN 7 mg/dL 7-21 (BEAKER) (test evqz=468) CREATININE (BEAKER) (test 0.70 mg/dL 0.57-1.25 dbis=903) GLUCOSE RANDOM (BEAKER) 126 mg/dL 70-105 (test pfkh=869) CALCIUM (BEAKER) (test 8.6 mg/dL 8.4-10.2 apcv=515) EGFR (BEAKER) (test 133 mL/min/1.73 sq m ESTIMATED GFR IS NOT tupc=6586) ACCURATE CREATININE CLEARANCE IN PREDICTING GLOMERULAR FILTRATION RATE. ESTIMATED GFR IS NOT APPLICABLE FOR DIALYSIS PATIENTS. HEPATIC FUNCTION [id number] 07:01:00 Test Item Value Reference Range Comments TOTAL PROTEIN (BEAKER) (test gjxl=347) 6.1 gm/dL 6.0-8.3 ALBUMIN (BEAKER) (test jufs=8145) 2.5 g/dL 3.5-5.0 BILIRUBIN TOTAL (BEAKER) (test keqx=302) 0.7 mg/dL 0.2-1.2 BILIRUBIN DIRECT (BEAKER) (test zbhp=190) 0.6 mg/dL 0.1-0.5 ALKALINE PHOSPHATASE (BEAKER) (test gseo=622) 119 U/L 40-150 AST (SGOT) (BEAKER) (test uknd=427) 72 U/L 5-34 ALT (SGPT) (BEAKER) (test glsb=079) 66 U/L 6-55 [id number] 06:32:00 Test Item Value Reference Range Comments PROTIME (BEAKER) (test knrz=767) 22.5 seconds 11.7-14.7 INR (BEAKER) (test ngtl=911) 2.1 <=5.9 PARTIAL THROMBOPLASTIN TIME (BEAKER) (test 56.8 seconds 22.5-36.0 zaxy=223) RECOMMENDED COUMADIN/WARFARIN INR THERAPY RANGESSTANDARD DOSE: 2.0 - 3.0 Includes: PROPHYLAXIS forvenous thrombosis, systemic embolization; TREATMENT for venous thrombosis and/or pulmonary embolus.HIGH RISK: Target INR is 2.5-3.5 for patients with mechanical heart valves.CBC W/PLT COUNT & AUTO [id number] 06:26:00 Test Item Value Reference Range Comments WHITE BLOOD CELL COUNT (BEAKER) (test deow=409) 12.5 K/ L 3.5-10.5 RED BLOOD CELL COUNT (BEAKER) (test rabh=081) 3.56 M/ L 4.63-6.08 HEMOGLOBIN (BEAKER) (test qytj=232) 10.3 GM/DL 13.7-17.5 HEMATOCRIT (BEAKER) (test jaft=900) 33.3 % 40.1-51.0 MEAN CORPUSCULAR VOLUME (BEAKER) (test sitg=782) 93.5 fL 79.0-92.2 MEAN CORPUSCULAR HEMOGLOBIN (BEAKER) (test 28.9 pg 25.7-32.2 qaml=117) MEAN CORPUSCULAR HEMOGLOBIN CONC (BEAKER) (test 30.9 GM/DL 32.3-36.5 ywnk=892) RED CELL DISTRIBUTION WIDTH (BEAKER) (test 14.3 % 11.6-14.4 ikvv=022) PLATELET COUNT (BEAKER) (test attk=304) 470 K/CU MM 150-450 MEAN PLATELET VOLUME (BEAKER) (test gbme=059) 10.8 fL 9.4-12.4 NUCLEATED RED BLOOD CELLS (BEAKER) (test 0 /100 WBC 0-0 osda=484) NEUTROPHILS RELATIVE PERCENT (BEAKER) (test 71 % ugzb=950) LYMPHOCYTES RELATIVE PERCENT (BEAKER) (test 13 % saao=898) MONOCYTES RELATIVE PERCENT (BEAKER) (test 10 % sgrw=616) EOSINOPHILS RELATIVE PERCENT (BEAKER) (test 4 % logf=618) BASOPHILS RELATIVE PERCENT (BEAKER) (test 1 % pmql=491) NEUTROPHILS ABSOLUTE COUNT (BEAKER) (test 8.89 K/ L 1.78-5.38 etrz=177) LYMPHOCYTES ABSOLUTE COUNT (BEAKER) (test 1.64 K/ L 1.32-3.57 omal=474) MONOCYTES ABSOLUTE COUNT (BEAKER) (test 1.24 K/ L 0.30-0.82 kmog=006) EOSINOPHILS ABSOLUTE COUNT (BEAKER) (test 0.46 K/ L 0.04-0.54 tdzw=416) BASOPHILS ABSOLUTE COUNT (BEAKER) (test 0.06 K/ L 0.01-0.08 uwhi=968) IMMATURE GRANULOCYTES-RELATIVE PERCENT (BEAKER) 1 % 0-1 (test oxkr=2619) BLOOD [id number] 22:01:00 Test Item Value Reference Range Comments CULTURE (BEAKER) (test fmbm=4143) No growth in 5 days BLOOD [id number] 22:01:00 Test Item Value Reference Range Comments CULTURE (BEAKER) (test amph=9432) No growth in 5 days [id number] 07:20:00 Test Item Value Reference Range Comments PROTIME (BEAKER) (test vgpz=921) 21.3 seconds 11.7-14.7 INR (BEAKER) (test kpyo=782) 2.0 <=5.9 PARTIAL THROMBOPLASTIN TIME (BEAKER) (test 50.7 seconds 22.5-36.0 dhui=596) RECOMMENDED COUMADIN/WARFARIN INR THERAPY RANGESSTANDARD DOSE: 2.0 - 3.0 Includes: PROPHYLAXIS forvenous thrombosis, systemic embolization; TREATMENT for venous thrombosis and/or pulmonary embolus.HIGH RISK: Target INR is 2.5-3.5 for patients with mechanical heart valves.CBC W/PLT COUNT & AUTO [id number] 07:09:00 Test Item Value Reference Range Comments WHITE BLOOD CELL COUNT (BEAKER) (test nazi=184) 13.7 K/ L 3.5-10.5 RED BLOOD CELL COUNT (BEAKER) (test qxwc=658) 3.79 M/ L 4.63-6.08 HEMOGLOBIN (BEAKER) (test rzeb=191) 11.0 GM/DL 13.7-17.5 HEMATOCRIT (BEAKER) (test iokm=623) 35.6 % 40.1-51.0 MEAN CORPUSCULAR VOLUME (BEAKER) (test tbrq=044) 93.9 fL 79.0-92.2 MEAN CORPUSCULAR HEMOGLOBIN (BEAKER) (test 29.0 pg 25.7-32.2 ofir=278) MEAN CORPUSCULAR HEMOGLOBIN CONC (BEAKER) (test 30.9 GM/DL 32.3-36.5 fnrd=601) RED CELL DISTRIBUTION WIDTH (BEAKER) (test 14.6 % 11.6-14.4 oicc=238) PLATELET COUNT (BEAKER) (test dxgy=664) 450 K/CU MM 150-450 MEAN PLATELET VOLUME (BEAKER) (test fkbx=638) 10.7 fL 9.4-12.4 NUCLEATED RED BLOOD CELLS (BEAKER) (test 0 /100 WBC 0-0 ougt=946) NEUTROPHILS RELATIVE PERCENT (BEAKER) (test 74 % vyfk=188) LYMPHOCYTES RELATIVE PERCENT (BEAKER) (test 12 % hetd=373) MONOCYTES RELATIVE PERCENT (BEAKER) (test 10 % srxw=967) EOSINOPHILS RELATIVE PERCENT (BEAKER) (test 3 % piet=720) BASOPHILS RELATIVE PERCENT (BEAKER) (test 1 % ynqw=235) NEUTROPHILS ABSOLUTE COUNT (BEAKER) (test 10.10 K/ L 1.78-5.38 nybu=232) LYMPHOCYTES ABSOLUTE COUNT (BEAKER) (test 1.64 K/ L 1.32-3.57 jvac=383) MONOCYTES ABSOLUTE COUNT (BEAKER) (test 1.34 K/ L 0.30-0.82 zjcm=904) EOSINOPHILS ABSOLUTE COUNT (BEAKER) (test 0.40 K/ L 0.04-0.54 kdfl=074) BASOPHILS ABSOLUTE COUNT (BEAKER) (test 0.07 K/ L 0.01-0.08 pqpi=542) IMMATURE GRANULOCYTES-RELATIVE PERCENT (BEAKER) 1 % 0-1 (test uogh=9901) [id number] 07:08:00 Test Item Value Reference Range Comments MAGNESIUM (BEAKER) (test uzwu=607) 2.1 mg/dL 1.6-2.6 BASIC METABOLIC [id number] 07:08:00 Test Item Value Reference Range Comments SODIUM (BEAKER) (test 140 meq/L 136-145 uslv=266) POTASSIUM (BEAKER) (test 4.0 meq/L 3.5-5.1 zibp=256) CHLORIDE (BEAKER) (test 102 meq/L 98-107 gkcc=182) CO2 (BEAKER) (test 29 meq/L 22-29 knqv=708) BLOOD UREA NITROGEN 8 mg/dL 7-21 (BEAKER) (test glgh=672) CREATININE (BEAKER) (test 0.72 mg/dL 0.57-1.25 ueao=173) GLUCOSE RANDOM (BEAKER) 109 mg/dL 70-105 (test rwlt=209) CALCIUM (BEAKER) (test 8.7 mg/dL 8.4-10.2 vzev=482) EGFR (BEAKER) (test 129 mL/min/1.73 sq m ESTIMATED GFR IS NOT yrrq=6416) ACCURATE CREATININE CLEARANCE IN PREDICTING GLOMERULAR FILTRATION RATE. ESTIMATED GFR IS NOT APPLICABLE FOR DIALYSIS PATIENTS. HEPATIC FUNCTION [id number] 07:08:00 Test Item Value Reference Range Comments TOTAL PROTEIN (BEAKER) (test lsqo=419) 6.5 gm/dL 6.0-8.3 ALBUMIN (BEAKER) (test lwza=0810) 2.6 g/dL 3.5-5.0 BILIRUBIN TOTAL (BEAKER) (test rikk=920) 0.9 mg/dL 0.2-1.2 BILIRUBIN DIRECT (BEAKER) (test dtin=721) 0.7 mg/dL 0.1-0.5 ALKALINE PHOSPHATASE (BEAKER) (test luwf=249) 133 U/L 40-150 AST (SGOT) (BEAKER) (test vdfy=120) 87 U/L 5-34 ALT (SGPT) (BEAKER) (test ruhg=903) 69 U/L 6-55 PROTHROMBIN [id number] 06:54:00 Test Item Value Reference Range Comments PROTIME (BEAKER) (test todz=841) 21.3 seconds 11.7-14.7 INR (BEAKER) (test hahy=123) 2.0 <=5.9 RECOMMENDED COUMADIN/WARFARIN INR THERAPY RANGESSTANDARD DOSE: 2.0 - 3.0 Includes: PROPHYLAXIS forvenous thrombosis, systemic embolization; TREATMENT for venous thrombosis and/or pulmonary embolus.HIGH RISK: Target INR is 2.5-3.5 for patients with mechanical heart valves.[id number] 06:24:00 Test Item Value Reference Range Comments MAGNESIUM (BEAKER) (test kpul=965) 2.0 mg/dL 1.6-2.6 BASIC METABOLIC [id number] 06:24:00 Test Item Value Reference Range Comments SODIUM (BEAKER) (test 139 meq/L 136-145 aqac=394) POTASSIUM (BEAKER) (test 3.7 meq/L 3.5-5.1 ozzz=997) CHLORIDE (BEAKER) (test 103 meq/L 98-107 lapz=143) CO2 (BEAKER) (test 27 meq/L 22-29 zkde=778) BLOOD UREA NITROGEN 8 mg/dL 7-21 (BEAKER) (test lqce=916) CREATININE (BEAKER) (test 0.68 mg/dL 0.57-1.25 qkqd=339) GLUCOSE RANDOM (BEAKER) 133 mg/dL 70-105 (test vepo=107) CALCIUM (BEAKER) (test 8.4 mg/dL 8.4-10.2 glmc=673) EGFR (BEAKER) (test 138 mL/min/1.73 sq m ESTIMATED GFR IS NOT bdpd=6993) ACCURATE CREATININE CLEARANCE IN PREDICTING GLOMERULAR FILTRATION RATE. ESTIMATED GFR IS NOT APPLICABLE FOR DIALYSIS PATIENTS. HEPATIC FUNCTION [id number] 06:24:00 Test Item Value Reference Range Comments TOTAL PROTEIN (BEAKER) (test nzwh=057) 6.1 gm/dL 6.0-8.3 ALBUMIN (BEAKER) (test rlns=1762) 2.5 g/dL 3.5-5.0 BILIRUBIN TOTAL (BEAKER) (test jvtg=769) 1.0 mg/dL 0.2-1.2 BILIRUBIN DIRECT (BEAKER) (test wkhg=389) 0.8 mg/dL 0.1-0.5 ALKALINE PHOSPHATASE (BEAKER) (test saro=424) 130 U/L 40-150 AST (SGOT) (BEAKER) (test axng=939) 71 U/L 5-34 ALT (SGPT) (BEAKER) (test thxi=963) 56 U/L 6-55 CBC W/PLT COUNT & AUTO [id number] 06:17:00 Test Item Value Reference Range Comments WHITE BLOOD CELL COUNT (BEAKER) (test ctit=931) 17.6 K/ L 3.5-10.5 RED BLOOD CELL COUNT (BEAKER) (test aofh=558) 3.67 M/ L 4.63-6.08 HEMOGLOBIN (BEAKER) (test cabm=868) 10.7 GM/DL 13.7-17.5 HEMATOCRIT (BEAKER) (test hlkb=743) 34.1 % 40.1-51.0 MEAN CORPUSCULAR VOLUME (BEAKER) (test xxiu=151) 92.9 fL 79.0-92.2 MEAN CORPUSCULAR HEMOGLOBIN (BEAKER) (test 29.2 pg 25.7-32.2 igvl=338) MEAN CORPUSCULAR HEMOGLOBIN CONC (BEAKER) (test 31.4 GM/DL 32.3-36.5 dwoe=617) RED CELL DISTRIBUTION WIDTH (BEAKER) (test 14.6 % 11.6-14.4 trqa=500) PLATELET COUNT (BEAKER) (test jyim=495) 395 K/CU MM 150-450 MEAN PLATELET VOLUME (BEAKER) (test sele=545) 10.6 fL 9.4-12.4 NUCLEATED RED BLOOD CELLS (BEAKER) (test 0 /100 WBC 0-0 rjzl=430) NEUTROPHILS RELATIVE PERCENT (BEAKER) (test 79 % xxvs=466) LYMPHOCYTES RELATIVE PERCENT (BEAKER) (test 8 % qgfe=150) MONOCYTES RELATIVE PERCENT (BEAKER) (test 9 % ltia=333) EOSINOPHILS RELATIVE PERCENT (BEAKER) (test 2 % zbgo=303) BASOPHILS RELATIVE PERCENT (BEAKER) (test 0 % hgqh=987) NEUTROPHILS ABSOLUTE COUNT (BEAKER) (test 13.89 K/ L 1.78-5.38 fyxb=624) LYMPHOCYTES ABSOLUTE COUNT (BEAKER) (test 1.41 K/ L 1.32-3.57 rcad=258) MONOCYTES ABSOLUTE COUNT (BEAKER) (test 1.58 K/ L 0.30-0.82 bkkz=101) EOSINOPHILS ABSOLUTE COUNT (BEAKER) (test 0.41 K/ L 0.04-0.54 clrw=536) BASOPHILS ABSOLUTE COUNT (BEAKER) (test 0.06 K/ L 0.01-0.08 uubl=111) IMMATURE GRANULOCYTES-RELATIVE PERCENT (BEAKER) 1 % 0-1 (test yfpp=1676) PROTHROMBIN [id number] 05:39:00 Test Item Value Reference Range Comments PROTIME (BEAKER) (test wphy=114) 22.4 seconds 11.7-14.7 INR (BEAKER) (test yqef=650) 2.1 <=5.9 RECOMMENDED COUMADIN/WARFARIN INR THERAPY RANGESSTANDARD DOSE: 2.0 - 3.0 Includes: PROPHYLAXIS forvenous thrombosis, systemic embolization; TREATMENT for venous thrombosis and/or pulmonary embolus.HIGH RISK: Target INR is 2.5-3.5 for patients with mechanical heart valves.PT/[id number] 05:39:00 Test Item Value Reference Range Comments PROTIME (BEAKER) (test hmai=046) 22.4 seconds 11.7-14.7 INR (BEAKER) (test rwkc=764) 2.1 <=5.9 PARTIAL THROMBOPLASTIN TIME (BEAKER) (test 48.4 seconds 22.5-36.0 brff=598) RECOMMENDED COUMADIN/WARFARIN INR THERAPY RANGESSTANDARD DOSE: 2.0 - 3.0 Includes: PROPHYLAXIS forvenous thrombosis, systemic embolization; TREATMENT for venous thrombosis and/or pulmonary embolus.HIGH RISK: Target INR is 2.5-3.5 for patients with mechanical heart valves.VANCOMYCIN LEVEL, [id number] 05: 28:00 Test Item Value Reference Range Comments VANCOMYCIN TROUGH (BEAKER) (test cest=052) 14.0 ug/mL 10.0-20.0 RAD, CHEST, 1 VIEW, NON [id number] 16:09:00Reason for exam:->feverShould this be performed at [...] the left upper quadrant. Signed: Josy Price [facility] Verified Date/Time : 06/07/2018 16:09:31 Reading Location: [facility] Women INCUBATED 1:1 MIXING [id number] 16:01:00 Test Item Value Reference Range Comments IMMEDIATE PT (BEAKER) (test 22.5 seconds 11.7-14.7 twru=1011) IMMEDIATE PTT (BEAKER) (test 54.8 seconds 22.5-36.0 nbzb=1719) IMMEDIATE 1:1 MIX PT (BEAKER) 14.1 seconds 11.7-14.7 (test nams=[id number]) IMMEDIATE 1:1 MIX PTT (BEAKER) 40.9 seconds 22.5-36.0 (test feed=[id number]) 1:1 MIX, 1 HOUR INC PT (BEAKER) 14.9 seconds (test ypvp=8777) 1:1 MIX, 1 HOUR INC PTT (BEAKER) 43.6 seconds (test kjno=4892) MIXING STUDY PATHOLOGIST Prolonged PT and PTT with INTERPRETATION (BEAKER) (test complete correction of PT mvxv=[id number]) and incomplete correction of PTT, 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 [id number] (BEAKER) Sade Mccormack MD (test cluc=7369) (electronic signature) URINALYSIS W/ REFLEX URINE [id number] 14:23:00 Test Item Value Reference Range Comments COLOR (BEAKER) (test bgya=531) Yellow CLARITY (BEAKER) (test gxnb=514) Clear SPECIFIC GRAVITY UA (BEAKER) (test npkm=888) 1.012 1.001-1.035 PH UA (BEAKER) (test exma=344) 6.5 5.0-8.0 PROTEIN UA (BEAKER) (test rcax=361) 20 mg/dL Negative GLUCOSE UA (BEAKER) (test dtxk=917) Negative Negative KETONES UA (BEAKER) (test uecw=230) 40 mg/dL Negative BILIRUBIN UA (BEAKER) (test acuq=922) Negative Negative BLOOD UA (BEAKER) (test rjrw=571) Trace Negative NITRITE UA (BEAKER) (test bqej=275) Negative Negative LEUKOCYTE ESTERASE UA (BEAKER) (test kbai=395) Negative Negative UROBILINOGEN UA (BEAKER) (test tpse=505) 0.2 mg/dL 0.2-1.0 RBC UA (BEAKER) (test apiq=005) 2 /HPF WBC UA (BEAKER) (test ilfg=011) 3 /HPF MUCUS (BEAKER) (test ljco=5352) Rare SOURCE(BEAKER) (test njob=4541) PT/[id number] 04:19:00 Test Item Value Reference Range Comments PROTIME (BEAKER) (test heui=956) 22.3 seconds 11.7-14.7 INR (BEAKER) (test xpqc=472) 2.1 <=5.9 PARTIAL THROMBOPLASTIN TIME (BEAKER) (test 51.1 seconds 22.5-36.0 fplr=053) RECOMMENDED COUMADIN/WARFARIN INR THERAPY RANGESSTANDARD DOSE: 2.0 - 3.0 Includes: PROPHYLAXIS forvenous thrombosis, systemic embolization; TREATMENT for venous thrombosis and/or pulmonary embolus.HIGH RISK: Target INR is 2.5-3.5 for patients with mechanical heart valves.PROTHROMBIN TIME/[id number] 04:18: 00 Test Item Value Reference Range Comments PROTIME (BEAKER) (test tyvn=215) 22.3 seconds 11.7-14.7 INR (BEAKER) (test szma=798) 2.1 <=5.9 RECOMMENDED COUMADIN/WARFARIN INR THERAPY RANGESSTANDARD DOSE: 2.0 - 3.0 Includes: PROPHYLAXIS forvenous thrombosis, systemic embolization; TREATMENT for venous thrombosis and/or pulmonary embolus.HIGH RISK: Target INR is 2.5-3.5 for patients with mechanical heart valves.[id number] 04:08:00 Test Item Value Reference Range Comments MAGNESIUM (BEAKER) (test goeh=711) 1.8 mg/dL 1.6-2.6 BASIC METABOLIC [id number] 04:08:00 Test Item Value Reference Range Comments SODIUM (BEAKER) (test 139 meq/L 136-145 pcgi=840) POTASSIUM (BEAKER) (test 3.7 meq/L 3.5-5.1 hdur=575) CHLORIDE (BEAKER) (test 103 meq/L 98-107 oqse=337) CO2 (BEAKER) (test 27 meq/L 22-29 iuen=280) BLOOD UREA NITROGEN 9 mg/dL 7-21 (BEAKER) (test cigx=274) CREATININE (BEAKER) (test 0.69 mg/dL 0.57-1.25 uazd=538) GLUCOSE RANDOM (BEAKER) 134 mg/dL 70-105 (test kvmv=257) CALCIUM (BEAKER) (test 8.5 mg/dL 8.4-10.2 ovow=339) EGFR (BEAKER) (test 136 mL/min/1.73 sq m ESTIMATED GFR IS NOT fqfn=5907) ACCURATE CREATININE CLEARANCE IN PREDICTING GLOMERULAR FILTRATION RATE. ESTIMATED GFR IS NOT APPLICABLE FOR DIALYSIS PATIENTS. HEPATIC FUNCTION [id number] 04:08:00 Test Item Value Reference Range Comments TOTAL PROTEIN (BEAKER) (test zpie=403) 6.2 gm/dL 6.0-8.3 ALBUMIN (BEAKER) (test vyaa=1539) 2.6 g/dL 3.5-5.0 BILIRUBIN TOTAL (BEAKER) (test aawg=124) 1.2 mg/dL 0.2-1.2 BILIRUBIN DIRECT (BEAKER) (test mred=825) 1.0 mg/dL 0.1-0.5 ALKALINE PHOSPHATASE (BEAKER) (test gdji=707) 140 U/L 40-150 AST (SGOT) (BEAKER) (test tglr=836) 72 U/L 5-34 ALT (SGPT) (BEAKER) (test mfwe=872) 59 U/L 6-55 CBC W/PLT COUNT & AUTO [id number] 03:56:00 Test Item Value Reference Range Comments WHITE BLOOD CELL COUNT (BEAKER) (test pkod=117) 20.1 K/ L 3.5-10.5 RED BLOOD CELL COUNT (BEAKER) (test yaao=171) 3.70 M/ L 4.63-6.08 HEMOGLOBIN (BEAKER) (test gxpr=129) 11.1 GM/DL 13.7-17.5 HEMATOCRIT (BEAKER) (test qqmm=222) 33.8 % 40.1-51.0 MEAN CORPUSCULAR VOLUME (BEAKER) (test tcwh=687) 91.4 fL 79.0-92.2 MEAN CORPUSCULAR HEMOGLOBIN (BEAKER) (test 30.0 pg 25.7-32.2 ivlv=069) MEAN CORPUSCULAR HEMOGLOBIN CONC (BEAKER) (test 32.8 GM/DL 32.3-36.5 iujc=820) RED CELL DISTRIBUTION WIDTH (BEAKER) (test 14.6 % 11.6-14.4 xyim=545) PLATELET COUNT (BEAKER) (test jzjv=244) 416 K/CU MM 150-450 MEAN PLATELET VOLUME (BEAKER) (test rvea=628) 10.6 fL 9.4-12.4 NUCLEATED RED BLOOD CELLS (BEAKER) (test 0 /100 WBC 0-0 uaee=153) NEUTROPHILS RELATIVE PERCENT (BEAKER) (test 80 % glie=279) LYMPHOCYTES RELATIVE PERCENT (BEAKER) (test 8 % gtfb=810) MONOCYTES RELATIVE PERCENT (BEAKER) (test 8 % pfwl=169) EOSINOPHILS RELATIVE PERCENT (BEAKER) (test 2 % krzh=905) BASOPHILS RELATIVE PERCENT (BEAKER) (test 0 % yeud=627) NEUTROPHILS ABSOLUTE COUNT (BEAKER) (test 16.05 K/ L 1.78-5.38 xdwt=140) LYMPHOCYTES ABSOLUTE COUNT (BEAKER) (test 1.64 K/ L 1.32-3.57 vhwg=122) MONOCYTES ABSOLUTE COUNT (BEAKER) (test 1.65 K/ L 0.30-0.82 zcpf=573) EOSINOPHILS ABSOLUTE COUNT (BEAKER) (test 0.30 K/ L 0.04-0.54 gofz=976) BASOPHILS ABSOLUTE COUNT (BEAKER) (test 0.05 K/ L 0.01-0.08 cvka=696) IMMATURE GRANULOCYTES-RELATIVE PERCENT (BEAKER) 2 % 0-1 (test hrdx=2432) FL, [id number] 18:30:00Reason for exam:->stonesPROCEDURE PERFORMED IN O.R. - PLEASE REFER TO THE INTRAOPERATIVE REPORT. CT, DRAINAGE, [id number] 18:06:00Reason for exam:->drainage of pancreatic fluid collection; concern for infection given ongoing fevers, WBC 24kFINAL REPORT INDICATION:28-year-old male with acute pancreatitis and acute necrotic collection. Request for percutaneous image guided drainage catheter placement. COMPARISON:June 05, 2018 TECHNIQUE:CT-guided placement of 10 [place] drainage catheter in left upper quadrant peripancreatic [...] and the introducer needle removed. An 8 [place] and then 10 [place] dilator were used. Then, a 10 [place] multisidehole drainage catheter was placed over the [...] 45 minutes. IMPRESSION: CT-guided placement of 10 [place] drainage catheter in left upper quadrant peripancreatic collection. Thin dark fluid was encountered. Signed: Leo Felton MDReport Verified Date/Time: 06/06/2018 18:06:54 Reading Location: [facility] C013Y CT Body Reading Room C. DIFFICILE GDH [id number] 10:12:00 Test Item Value Reference Range Comments CDT TOXIN (test Negative Negative nald=[id number]) CDT GDH ANTIGEN (test Negative Negative No indication of Clostridium bkxj=[id number]) difficile infection and no colonization. Discontinue enteric isolation and therapy. Testing performed by [employer] Rapid Cassette Assay. For GDH, published sensitivity of the assay is 98.7% compared to cytotoxicity testing. For Toxin AB, published sensitivity is 87.8% and specificity 99.4% compared to cytotoxicity testing.Verification of kit performance was done by the [facility] Microbiology Lab prior to clinical use.VANCOMYCIN LEVEL, [id number] 04:02: 00 Test Item Value Reference Range Comments VANCOMYCIN TROUGH (BEAKER) (test ybkm=384) 9.9 ug/mL 10.0-20.0 [id number] 02:24:00 Test Item Value Reference Range Comments MAGNESIUM (BEAKER) (test ytxl=396) 1.8 mg/dL 1.6-2.6 BASIC METABOLIC [id number] 02:24:00 Test Item Value Reference Range Comments SODIUM (BEAKER) (test 139 meq/L 136-145 whwb=193) POTASSIUM (BEAKER) (test 3.6 meq/L 3.5-5.1 necf=675) CHLORIDE (BEAKER) (test 104 meq/L 98-107 sfur=411) CO2 (BEAKER) (test 28 meq/L 22-29 pbri=649) BLOOD UREA NITROGEN 9 mg/dL 7-21 (BEAKER) (test fmjk=757) CREATININE (BEAKER) (test 0.73 mg/dL 0.57-1.25 heit=573) GLUCOSE RANDOM (BEAKER) 126 mg/dL 70-105 (test myjv=266) CALCIUM (BEAKER) (test 8.4 mg/dL 8.4-10.2 pwha=451) EGFR (BEAKER) (test 127 mL/min/1.73 sq m ESTIMATED GFR IS NOT xrev=2919) ACCURATE CREATININE CLEARANCE IN PREDICTING GLOMERULAR FILTRATION RATE. ESTIMATED GFR IS NOT APPLICABLE FOR DIALYSIS PATIENTS. HEPATIC FUNCTION [id number] 02:24:00 Test Item Value Reference Range Comments TOTAL PROTEIN (BEAKER) (test xjjw=303) 6.2 gm/dL 6.0-8.3 ALBUMIN (BEAKER) (test ondb=0200) 2.6 g/dL 3.5-5.0 BILIRUBIN TOTAL (BEAKER) (test hpnp=047) 1.7 mg/dL 0.2-1.2 BILIRUBIN DIRECT (BEAKER) (test smzq=889) 1.2 mg/dL 0.1-0.5 ALKALINE PHOSPHATASE (BEAKER) (test ggay=844) 133 U/L 40-150 AST (SGOT) (BEAKER) (test zgce=840) 89 U/L 5-34 ALT (SGPT) (BEAKER) (test zpzb=635) 60 U/L 6-55 [id number] 02:12:00 Test Item Value Reference Range Comments PROTIME (BEAKER) (test inlk=492) 20.9 seconds 11.7-14.7 INR (BEAKER) (test hoty=227) 1.9 <=5.9 PARTIAL THROMBOPLASTIN TIME (BEAKER) (test 48.9 seconds 22.5-36.0 futk=844) RECOMMENDED COUMADIN/WARFARIN INR THERAPY RANGESSTANDARD DOSE: 2.0 - 3.0 Includes: PROPHYLAXIS forvenous thrombosis, systemic embolization; TREATMENT for venous thrombosis and/or pulmonary embolus.HIGH RISK: Target INR is 2.5-3.5 for patients with mechanical heart valves.PROTHROMBIN [id number] 02:11: 00 Test Item Value Reference Range Comments PROTIME (BEAKER) (test dehn=312) 20.9 seconds 11.7-14.7 INR (BEAKER) (test yswk=586) 1.9 <=5.9 RECOMMENDED COUMADIN/WARFARIN INR THERAPY RANGESSTANDARD DOSE: 2.0 - 3.0 Includes: PROPHYLAXIS forvenous thrombosis, systemic embolization; TREATMENT for venous thrombosis and/or pulmonary embolus.HIGH RISK: Target INR is 2.5-3.5 for patients with mechanical heart valves.CBC W/PLT COUNT & AUTO [id number] 02:00:00 Test Item Value Reference Range Comments WHITE BLOOD CELL COUNT (BEAKER) (test dwra=110) 24.9 K/ L 3.5-10.5 RED BLOOD CELL COUNT (BEAKER) (test kyvu=283) 3.67 M/ L 4.63-6.08 HEMOGLOBIN (BEAKER) (test mybz=419) 11.0 GM/DL 13.7-17.5 HEMATOCRIT (BEAKER) (test ylbe=604) 34.0 % 40.1-51.0 MEAN CORPUSCULAR VOLUME (BEAKER) (test ebvk=120) 92.6 fL 79.0-92.2 MEAN CORPUSCULAR HEMOGLOBIN (BEAKER) (test 30.0 pg 25.7-32.2 smwh=014) MEAN CORPUSCULAR HEMOGLOBIN CONC (BEAKER) (test 32.4 GM/DL 32.3-36.5 obmm=517) RED CELL DISTRIBUTION WIDTH (BEAKER) (test 14.8 % 11.6-14.4 oaow=749) PLATELET COUNT (BEAKER) (test znpd=414) 366 K/CU MM 150-450 MEAN PLATELET VOLUME (BEAKER) (test nxuw=158) 10.5 fL 9.4-12.4 NUCLEATED RED BLOOD CELLS (BEAKER) (test 0 /100 WBC 0-0 chdo=995) NEUTROPHILS RELATIVE PERCENT (BEAKER) (test 81 % scpl=716) LYMPHOCYTES RELATIVE PERCENT (BEAKER) (test 7 % crec=490) MONOCYTES RELATIVE PERCENT (BEAKER) (test 8 % dyme=876) EOSINOPHILS RELATIVE PERCENT (BEAKER) (test 2 % ggfm=963) BASOPHILS RELATIVE PERCENT (BEAKER) (test 0 % npqp=131) NEUTROPHILS ABSOLUTE COUNT (BEAKER) (test 20.12 K/ L 1.78-5.38 jdox=901) LYMPHOCYTES ABSOLUTE COUNT (BEAKER) (test 1.67 K/ L 1.32-3.57 xadz=832) MONOCYTES ABSOLUTE COUNT (BEAKER) (test 1.96 K/ L 0.30-0.82 bkex=230) EOSINOPHILS ABSOLUTE COUNT (BEAKER) (test 0.49 K/ L 0.04-0.54 mvsi=880) BASOPHILS ABSOLUTE COUNT (BEAKER) (test 0.09 K/ L 0.01-0.08 cqok=045) IMMATURE GRANULOCYTES-RELATIVE PERCENT (BEAKER) 2 % 0-1 (test rago=1395) [id number] 16:33:00 Test Item Value Reference Range Comments FIBRINOGEN LEVEL (BEAKER) (test oill=626) 852 mg/dl 225-434 CT, [id number] 12:46:00FINAL REPORT CT abdomen and pelvis with [...] MDReport Verified Date/Time: 06/05/2018 12:46:00 Reading Location: [facility] Diagnostic Imaging Reading Room - [place] [address] CBC W/PLT COUNT & AUTO [id number] 10:12:00 Test Item Value Reference Range Comments WHITE BLOOD CELL COUNT (BEAKER) (test gthy=351) 24.1 K/ L 3.5-10.5 RED BLOOD CELL COUNT (BEAKER) (test nitm=432) 3.89 M/ L 4.63-6.08 HEMOGLOBIN (BEAKER) (test vwpc=355) 11.5 GM/DL 13.7-17.5 HEMATOCRIT (BEAKER) (test cocr=178) 35.5 % 40.1-51.0 MEAN CORPUSCULAR VOLUME (BEAKER) (test tveb=102) 91.3 fL 79.0-92.2 MEAN CORPUSCULAR HEMOGLOBIN (BEAKER) (test 29.6 pg 25.7-32.2 skuw=533) MEAN CORPUSCULAR HEMOGLOBIN CONC (BEAKER) (test 32.4 GM/DL 32.3-36.5 rwof=252) RED CELL DISTRIBUTION WIDTH (BEAKER) (test 14.6 % 11.6-14.4 itpc=610) PLATELET COUNT (BEAKER) (test wngq=337) 355 K/CU MM 150-450 MEAN PLATELET VOLUME (BEAKER) (test pfmc=467) 10.8 fL 9.4-12.4 NUCLEATED RED BLOOD CELLS (BEAKER) (test 0 /100 WBC 0-0 zvwg=790) (CELLAVISION MANUAL DIFF)2018-06-05 10:12:00 Test Item Value Reference Range Comments NEUTROPHILS - REL (CELLAVISION)(BEAKER) (test 75 % wltv=6808) LYMPHOCYTES - REL (CELLAVISION)(BEAKER) (test 11 % gfjs=1831) MONOCYTES - REL (CELLAVISION)(BEAKER) (test 9 % wxfu=1920) EOSINOPHILS - REL (CELLAVISION)(BEAKER) (test 5 % mvys=4364) NEUTROPHILS - ABS (CELLAVISION)(BEAKER) (test 18.08 K/ul 1.78-5.38 lwdp=4784) LYMPHOCYTES - ABS (CELLAVISION)(BEAKER) (test 2.65 K/ul 1.32-3.57 lzby=0193) MONOCYTES - ABS (CELLAVISION)(BEAKER) (test 2.17 K/uL 0.30-0.82 cuij=4253) EOSINOPHILS - ABS (CELLAVISION)(BEAKER) (test 1.21 K/uL 0.04-0.54 ekss=3617) TOTAL COUNTED (BEAKER) (test uhtr=3969) 100 RBC MORPHOLOGY (BEAKER) (test sbyr=238) Normal WBC MORPHOLOGY (BEAKER) (test qdlz=046) Normal PLT MORPHOLOGY (BEAKER) (test fslg=759) Normal ARTIFACT (CELLAVISION)(BEAKER) (test wejq=0769) Present PLATELET CONCENTRATION (CELLAVISION)(BEAKER) Adequate (test ybjc=0282) Received comment: User comments: Slide comments:[id number] 04:13:00 Test Item Value Reference Range Comments PROTIME (BEAKER) (test txvp=007) 20.4 seconds 11.7-14.7 INR (BEAKER) (test uezz=564) 1.9 <=5.9 PARTIAL THROMBOPLASTIN TIME (BEAKER) (test 45.0 seconds 22.5-36.0 hdiu=075) RECOMMENDED COUMADIN/WARFARIN INR THERAPY RANGESSTANDARD DOSE: 2.0 - 3.0 Includes: PROPHYLAXIS forvenous thrombosis, systemic embolization; TREATMENT for venous thrombosis and/or pulmonary embolus.HIGH RISK: Target INR is 2.5-3.5 for patients with mechanical heart valves.[id number] 04:12:00 Test Item Value Reference Range Comments MAGNESIUM (BEAKER) (test mnev=878) 1.8 mg/dL 1.6-2.6 BASIC METABOLIC [id number] 04:12:00 Test Item Value Reference Range Comments SODIUM (BEAKER) (test 135 meq/L 136-145 naet=420) POTASSIUM (BEAKER) (test 3.4 meq/L 3.5-5.1 phew=426) CHLORIDE (BEAKER) (test 102 meq/L 98-107 jjoj=138) CO2 (BEAKER) (test 24 meq/L 22-29 czgy=305) BLOOD UREA NITROGEN 9 mg/dL 7-21 (BEAKER) (test giiy=640) CREATININE (BEAKER) (test 0.72 mg/dL 0.57-1.25 xpwm=831) GLUCOSE RANDOM (BEAKER) 120 mg/dL 70-105 (test mcqh=984) CALCIUM (BEAKER) (test 8.3 mg/dL 8.4-10.2 pzkf=741) EGFR (BEAKER) (test 129 mL/min/1.73 sq m ESTIMATED GFR IS NOT tsqh=0034) ACCURATE CREATININE CLEARANCE IN PREDICTING GLOMERULAR FILTRATION RATE. ESTIMATED GFR IS NOT APPLICABLE FOR DIALYSIS PATIENTS. HEPATIC FUNCTION [id number] 04:12:00 Test Item Value Reference Range Comments TOTAL PROTEIN (BEAKER) (test zrvt=582) 6.3 gm/dL 6.0-8.3 ALBUMIN (BEAKER) (test tqho=8691) 2.7 g/dL 3.5-5.0 BILIRUBIN TOTAL (BEAKER) (test yjcu=133) 2.3 mg/dL 0.2-1.2 BILIRUBIN DIRECT (BEAKER) (test mgub=292) 1.7 mg/dL 0.1-0.5 ALKALINE PHOSPHATASE (BEAKER) (test eksl=748) 126 U/L 40-150 AST (SGOT) (BEAKER) (test ozvc=100) 93 U/L 5-34 ALT (SGPT) (BEAKER) (test mcmi=141) 55 U/L 6-55 PROTHROMBIN [id number] 04:12:00 Test Item Value Reference Range Comments PROTIME (BEAKER) (test rvkg=302) 20.4 seconds 11.7-14.7 INR (BEAKER) (test lygs=931) 1.9 <=5.9 RECOMMENDED COUMADIN/WARFARIN INR THERAPY RANGESSTANDARD DOSE: 2.0 - 3.0 Includes: PROPHYLAXIS forvenous thrombosis, systemic embolization; TREATMENT for venous thrombosis and/or pulmonary embolus.HIGH RISK: Target INR is 2.5-3.5 for patients with mechanical heart valves.BLOOD [id number] 02:02:00 Test Item Value Reference Range Comments CULTURE (BEAKER) (test retx=8678) No growth in 5 days BLOOD [id number] 02:02:00 Test Item Value Reference Range Comments CULTURE (BEAKER) (test xidy=2146) No growth in 5 days CBC W/PLT COUNT & AUTO [id number] 22:18:00 Test Item Value Reference Range Comments WHITE BLOOD CELL COUNT (BEAKER) (test xrtd=288) 20.1 K/ L 3.5-10.5 RED BLOOD CELL COUNT (BEAKER) (test xqkf=100) 4.01 M/ L 4.63-6.08 HEMOGLOBIN (BEAKER) (test nxad=193) 11.9 GM/DL 13.7-17.5 HEMATOCRIT (BEAKER) (test cbpz=114) 36.7 % 40.1-51.0 MEAN CORPUSCULAR VOLUME (BEAKER) (test venf=034) 91.5 fL 79.0-92.2 MEAN CORPUSCULAR HEMOGLOBIN (BEAKER) (test 29.7 pg 25.7-32.2 dfqe=702) MEAN CORPUSCULAR HEMOGLOBIN CONC (BEAKER) (test 32.4 GM/DL 32.3-36.5 eyay=792) RED CELL DISTRIBUTION WIDTH (BEAKER) (test 14.5 % 11.6-14.4 dhqh=440) PLATELET COUNT (BEAKER) (test zbjn=770) 332 K/CU MM 150-450 MEAN PLATELET VOLUME (BEAKER) (test oghn=549) 10.8 fL 9.4-12.4 NUCLEATED RED BLOOD CELLS (BEAKER) (test 0 /100 WBC 0-0 hcpi=638) (CELLAVISION MANUAL DIFF)2018-06-04 22:18:00 Test Item Value Reference Range Comments NEUTROPHILS - REL (CELLAVISION)(BEAKER) (test 79 % kyij=3580) LYMPHOCYTES - REL (CELLAVISION)(BEAKER) (test 6 % aivi=6527) MONOCYTES - REL (CELLAVISION)(BEAKER) (test 10 % hqno=4078) EOSINOPHILS - REL (CELLAVISION)(BEAKER) (test 1 % vfvl=1286) BANDS - REL (CELLAVISION)(BEAKER) (test 3 % 0-10 pnbp=3176) ATYPICAL LYMPHOCYTES - REL (CELLAVISION)(BEAKER) 1 % 0-0 (test fbzl=2153) NEUTROPHILS - ABS (CELLAVISION)(BEAKER) (test 15.88 K/ul 1.78-5.38 veev=3152) LYMPHOCYTES - ABS (CELLAVISION)(BEAKER) (test 1.21 K/ul 1.32-3.57 jyos=5755) MONOCYTES - ABS (CELLAVISION)(BEAKER) (test 2.01 K/uL 0.30-0.82 szkn=9077) EOSINOPHILS - ABS (CELLAVISION)(BEAKER) (test 0.20 K/uL 0.04-0.54 qvrm=6629) BANDS - ABS (CELLAVISION)(BEAKER) (test 0.60 K/uL 0.00-0.80 dngm=1705) ATYPICAL LYMPHOCYTES - ABS (CELLAVISION)(BEAKER) 0.20 K/uL 0.00-0.00 (test mqbx=6119) TOTAL COUNTED (BEAKER) (test blqt=7831) 100 WBC MORPHOLOGY (BEAKER) (test paag=123) Normal GIANT PLATELETS (BEAKER) (test tfqb=638) Present POLYCHROMATOPHILLIC RBCS(BEAKER) (test votd=422) 1+ few ARTIFACT (CELLAVISION)(BEAKER) (test fmjc=5006) Present PLATELET CONCENTRATION (CELLAVISION)(BEAKER) Adequate (test hwyk=2923) Received comment: User comments: Slide comments:[id number] 14:28:00 Test Item Value Reference Range Comments PROCALCITONIN (BEAKER) (test jxop=9752) 0.62 ng/mL <0.05 SEPSIS RISK (ng/mL)Low: 0.05-0.50Intermediate: 0.51-2.00High: & gt;=2.01LACTIC ACID, [id number] 14:07:00 Test Item Value Reference Range Comments LACTATE BLOOD VENOUS (2) 1.1 mmol/L 0.5-2.2 Specimen moderately hemolyzed (BEAKER) (test sywh=2886) [id number] 06:34:00 Test Item Value Reference Range Comments MAGNESIUM (BEAKER) (test ndvd=694) 1.7 mg/dL 1.6-2.6 BASIC METABOLIC [id number] 06:34:00 Test Item Value Reference Range Comments SODIUM (BEAKER) (test 136 meq/L 136-145 dond=147) POTASSIUM (BEAKER) (test 3.7 meq/L 3.5-5.1 uvmw=000) CHLORIDE (BEAKER) (test 103 meq/L 98-107 jbpa=395) CO2 (BEAKER) (test 24 meq/L 22-29 yono=607) BLOOD UREA NITROGEN 10 mg/dL 7-21 (BEAKER) (test vwgd=836) CREATININE (BEAKER) (test 0.61 mg/dL 0.57-1.25 rafx=160) GLUCOSE RANDOM (BEAKER) 131 mg/dL 70-105 (test iulu=378) CALCIUM (BEAKER) (test 8.5 mg/dL 8.4-10.2 whdm=768) EGFR (BEAKER) (test 156 mL/min/1.73 sq m ESTIMATED GFR IS NOT oanr=6725) ACCURATE CREATININE CLEARANCE IN PREDICTING GLOMERULAR FILTRATION RATE. ESTIMATED GFR IS NOT APPLICABLE FOR DIALYSIS PATIENTS. HEPATIC FUNCTION [id number] 06:34:00 Test Item Value Reference Range Comments TOTAL PROTEIN (BEAKER) (test qtxi=053) 6.0 gm/dL 6.0-8.3 ALBUMIN (BEAKER) (test rbcn=5284) 2.6 g/dL 3.5-5.0 BILIRUBIN TOTAL (BEAKER) (test skdj=523) 2.0 mg/dL 0.2-1.2 BILIRUBIN DIRECT (BEAKER) (test fpwv=943) 1.6 mg/dL 0.1-0.5 ALKALINE PHOSPHATASE (BEAKER) (test icqx=164) 117 U/L 40-150 AST (SGOT) (BEAKER) (test tlgh=925) 78 U/L 5-34 ALT (SGPT) (BEAKER) (test jbgn=310) 53 U/L 6-55 [id number] 06:06:00 Test Item Value Reference Range Comments PROTIME (BEAKER) (test iawn=163) 18.7 seconds 11.7-14.7 INR (BEAKER) (test jrck=071) 1.7 <=5.9 PARTIAL THROMBOPLASTIN TIME (BEAKER) (test 38.7 seconds 22.5-36.0 fsnc=423) RECOMMENDED COUMADIN/WARFARIN INR THERAPY RANGESSTANDARD DOSE: 2.0 - 3.0 Includes: PROPHYLAXIS forvenous thrombosis, systemic embolization; TREATMENT for venous thrombosis and/or pulmonary embolus.HIGH RISK: Target INR is 2.5-3.5 for patients with mechanical heart valves.PROTHROMBIN [id number] 06:05: 00 Test Item Value Reference Range Comments PROTIME (BEAKER) (test rtch=629) 18.7 seconds 11.7-14.7 INR (BEAKER) (test vhxd=498) 1.7 <=5.9 RECOMMENDED COUMADIN/WARFARIN INR THERAPY RANGESSTANDARD DOSE: 2.0 - 3.0 Includes: PROPHYLAXIS forvenous thrombosis, systemic embolization; TREATMENT for venous thrombosis and/or pulmonary embolus.HIGH RISK: Target INR is 2.5-3.5 for patients with mechanical heart valves.[id number] 06:22:00 Test Item Value Reference Range Comments MAGNESIUM (BEAKER) (test jsyn=440) 1.8 mg/dL 1.6-2.6 BASIC METABOLIC [id number] 06:22:00 Test Item Value Reference Range Comments SODIUM (BEAKER) (test 135 meq/L 136-145 aeuq=466) POTASSIUM (BEAKER) (test 3.9 meq/L 3.5-5.1 vdmo=086) CHLORIDE (BEAKER) (test 103 meq/L 98-107 zhyu=434) CO2 (BEAKER) (test 25 meq/L 22-29 deew=691) BLOOD UREA NITROGEN 12 mg/dL 7-21 (BEAKER) (test lxly=394) CREATININE (BEAKER) (test 0.65 mg/dL 0.57-1.25 pxwg=947) GLUCOSE RANDOM (BEAKER) 135 mg/dL 70-105 (test qknw=208) CALCIUM (BEAKER) (test 8.1 mg/dL 8.4-10.2 vsko=209) EGFR (BEAKER) (test 145 mL/min/1.73 sq m ESTIMATED GFR IS NOT cyrq=2459) ACCURATE CREATININE CLEARANCE IN PREDICTING GLOMERULAR FILTRATION RATE. ESTIMATED GFR IS NOT APPLICABLE FOR DIALYSIS PATIENTS. HEPATIC FUNCTION [id number] 06:22:00 Test Item Value Reference Range Comments TOTAL PROTEIN (BEAKER) (test ifoz=962) 6.1 gm/dL 6.0-8.3 ALBUMIN (BEAKER) (test xkos=6243) 2.5 g/dL 3.5-5.0 BILIRUBIN TOTAL (BEAKER) (test axxk=614) 2.3 mg/dL 0.2-1.2 BILIRUBIN DIRECT (BEAKER) (test bkan=612) 1.7 mg/dL 0.1-0.5 ALKALINE PHOSPHATASE (BEAKER) (test jtat=115) 112 U/L 40-150 AST (SGOT) (BEAKER) (test ukkq=419) 74 U/L 5-34 ALT (SGPT) (BEAKER) (test jjud=634) 46 U/L 6-55 [id number] 06:08:00 Test Item Value Reference Range Comments PROTIME (BEAKER) (test nefd=388) 17.4 seconds 11.7-14.7 INR (BEAKER) (test trik=290) 1.5 <=5.9 PARTIAL THROMBOPLASTIN TIME (BEAKER) (test 39.9 seconds 22.5-36.0 gaeb=262) RECOMMENDED COUMADIN/WARFARIN INR THERAPY RANGESSTANDARD DOSE: 2.0 - 3.0 Includes: PROPHYLAXIS forvenous thrombosis, systemic embolization; TREATMENT for venous thrombosis and/or pulmonary embolus.HIGH RISK: Target INR is 2.5-3.5 for patients with mechanical heart valves.PROTHROMBIN TIME/[id number] 06:07: 00 Test Item Value Reference Range Comments PROTIME (BEAKER) (test kioq=447) 17.4 seconds 11.7-14.7 INR (BEAKER) (test fbgs=364) 1.5 <=5.9 RECOMMENDED COUMADIN/WARFARIN INR THERAPY RANGESSTANDARD DOSE: 2.0 - 3.0 Includes: PROPHYLAXIS forvenous thrombosis, systemic embolization; TREATMENT for venous thrombosis and/or pulmonary embolus.HIGH RISK: Target INR is 2.5-3.5 for patients with mechanical heart valves.CBC W/PLT COUNT & AUTO [id number] 05:56:00 Test Item Value Reference Range Comments WHITE BLOOD CELL COUNT (BEAKER) (test llbt=808) 19.1 K/ L 3.5-10.5 RED BLOOD CELL COUNT (BEAKER) (test mybs=243) 4.10 M/ L 4.63-6.08 HEMOGLOBIN (BEAKER) (test oxgn=999) 12.2 GM/DL 13.7-17.5 HEMATOCRIT (BEAKER) (test ybln=169) 37.5 % 40.1-51.0 MEAN CORPUSCULAR VOLUME (BEAKER) (test avhn=202) 91.5 fL 79.0-92.2 MEAN CORPUSCULAR HEMOGLOBIN (BEAKER) (test 29.8 pg 25.7-32.2 mpcl=939) MEAN CORPUSCULAR HEMOGLOBIN CONC (BEAKER) (test 32.5 GM/DL 32.3-36.5 ihlt=421) RED CELL DISTRIBUTION WIDTH (BEAKER) (test 14.4 % 11.6-14.4 kidl=366) PLATELET COUNT (BEAKER) (test muum=539) 306 K/CU MM 150-450 MEAN PLATELET VOLUME (BEAKER) (test wetq=345) 10.9 fL 9.4-12.4 NUCLEATED RED BLOOD CELLS (BEAKER) (test 0 /100 WBC 0-0 nare=249) NEUTROPHILS RELATIVE PERCENT (BEAKER) (test 78 % clrr=509) LYMPHOCYTES RELATIVE PERCENT (BEAKER) (test 9 % yacd=682) MONOCYTES RELATIVE PERCENT (BEAKER) (test 8 % iids=343) EOSINOPHILS RELATIVE PERCENT (BEAKER) (test 2 % repo=601) BASOPHILS RELATIVE PERCENT (BEAKER) (test 0 % sidn=316) NEUTROPHILS ABSOLUTE COUNT (BEAKER) (test 14.83 K/ L 1.78-5.38 btes=058) LYMPHOCYTES ABSOLUTE COUNT (BEAKER) (test 1.66 K/ L 1.32-3.57 otxx=514) MONOCYTES ABSOLUTE COUNT (BEAKER) (test 1.48 K/ L 0.30-0.82 njcj=609) EOSINOPHILS ABSOLUTE COUNT (BEAKER) (test 0.32 K/ L 0.04-0.54 keti=701) BASOPHILS ABSOLUTE COUNT (BEAKER) (test 0.07 K/ L 0.01-0.08 ukqv=444) IMMATURE GRANULOCYTES-RELATIVE PERCENT (BEAKER) 4 % 0-1 (test xdbl=9852) CBC W/PLT COUNT & AUTO [id number] 04:50:00 Test Item Value Reference Range Comments WHITE BLOOD CELL COUNT (BEAKER) (test ihqz=074) 16.6 K/ L 3.5-10.5 RED BLOOD CELL COUNT (BEAKER) (test hhkt=665) 3.82 M/ L 4.63-6.08 HEMOGLOBIN (BEAKER) (test dfvl=471) 11.3 GM/DL 13.7-17.5 HEMATOCRIT (BEAKER) (test ltlw=452) 35.6 % 40.1-51.0 MEAN CORPUSCULAR VOLUME (BEAKER) (test dybz=594) 93.2 fL 79.0-92.2 MEAN CORPUSCULAR HEMOGLOBIN (BEAKER) (test 29.6 pg 25.7-32.2 nsyy=583) MEAN CORPUSCULAR HEMOGLOBIN CONC (BEAKER) (test 31.7 GM/DL 32.3-36.5 sftc=689) RED CELL DISTRIBUTION WIDTH (BEAKER) (test 14.3 % 11.6-14.4 zxct=236) PLATELET COUNT (BEAKER) (test xqag=851) 240 K/CU MM 150-450 MEAN PLATELET VOLUME (BEAKER) (test idqm=516) 11.0 fL 9.4-12.4 NUCLEATED RED BLOOD CELLS (BEAKER) (test 0 /100 WBC 0-0 pvsf=925) NEUTROPHILS RELATIVE PERCENT (BEAKER) (test 76 % saol=674) LYMPHOCYTES RELATIVE PERCENT (BEAKER) (test 11 % ubef=278) MONOCYTES RELATIVE PERCENT (BEAKER) (test 8 % rjfe=365) EOSINOPHILS RELATIVE PERCENT (BEAKER) (test 2 % yuhz=110) BASOPHILS RELATIVE PERCENT (BEAKER) (test 0 % lwzu=417) NEUTROPHILS ABSOLUTE COUNT (BEAKER) (test 12.63 K/ L 1.78-5.38 hebd=641) LYMPHOCYTES ABSOLUTE COUNT (BEAKER) (test 1.90 K/ L 1.32-3.57 nkas=373) MONOCYTES ABSOLUTE COUNT (BEAKER) (test 1.29 K/ L 0.30-0.82 uthm=724) EOSINOPHILS ABSOLUTE COUNT (BEAKER) (test 0.32 K/ L 0.04-0.54 tdtz=406) BASOPHILS ABSOLUTE COUNT (BEAKER) (test 0.06 K/ L 0.01-0.08 rucg=612) IMMATURE GRANULOCYTES-RELATIVE PERCENT (BEAKER) 2 % 0-1 (test gvxk=3022) [id number] 04:26:00 Test Item Value Reference Range Comments MAGNESIUM (BEAKER) (test tbtf=325) 1.7 mg/dL 1.6-2.6 BASIC METABOLIC [id number] 04:26:00 Test Item Value Reference Range Comments SODIUM (BEAKER) (test 137 meq/L 136-145 jbcz=624) POTASSIUM (BEAKER) (test 3.7 meq/L 3.5-5.1 ifhm=852) CHLORIDE (BEAKER) (test 106 meq/L 98-107 mypi=402) CO2 (BEAKER) (test 25 meq/L 22-29 mryv=958) BLOOD UREA NITROGEN 10 mg/dL 7-21 (BEAKER) (test huyz=698) CREATININE (BEAKER) (test 0.68 mg/dL 0.57-1.25 hvyr=428) GLUCOSE RANDOM (BEAKER) 137 mg/dL 70-105 (test ytjm=815) CALCIUM (BEAKER) (test 8.2 mg/dL 8.4-10.2 gnkv=861) EGFR (BEAKER) (test 138 mL/min/1.73 sq m ESTIMATED GFR IS NOT bmig=1072) ACCURATE CREATININE CLEARANCE IN PREDICTING GLOMERULAR FILTRATION RATE. ESTIMATED GFR IS NOT APPLICABLE FOR DIALYSIS PATIENTS. HEPATIC FUNCTION [id number] 04:26:00 Test Item Value Reference Range Comments TOTAL PROTEIN (BEAKER) (test bhkh=998) 5.9 gm/dL 6.0-8.3 ALBUMIN (BEAKER) (test ogvt=2116) 2.6 g/dL 3.5-5.0 BILIRUBIN TOTAL (BEAKER) (test pjmi=863) 2.3 mg/dL 0.2-1.2 BILIRUBIN DIRECT (BEAKER) (test cvxv=904) 1.8 mg/dL 0.1-0.5 ALKALINE PHOSPHATASE (BEAKER) (test nwir=509) 111 U/L 40-150 AST (SGOT) (BEAKER) (test wglr=018) 88 U/L 5-34 ALT (SGPT) (BEAKER) (test bkxb=962) 54 U/L 6-55 [id number] 04:11:00 Test Item Value Reference Range Comments PROTIME (BEAKER) (test ubuh=599) 17.3 seconds 11.7-14.7 INR (BEAKER) (test kczi=255) 1.5 <=5.9 PARTIAL THROMBOPLASTIN TIME (BEAKER) (test 34.7 seconds 22.5-36.0 etpy=239) RECOMMENDED COUMADIN/WARFARIN INR THERAPY RANGESSTANDARD DOSE: 2.0 - 3.0 Includes: PROPHYLAXIS forvenous thrombosis, systemic embolization; TREATMENT for venous thrombosis and/or pulmonary embolus.HIGH RISK: Target INR is 2.5-3.5 for patients with mechanical heart valves.PROTHROMBIN [id number] 04:10: 00 Test Item Value Reference Range Comments PROTIME (BEAKER) (test bpfr=981) 17.3 seconds 11.7-14.7 INR (BEAKER) (test nrmf=326) 1.5 <=5.9 RECOMMENDED COUMADIN/WARFARIN INR THERAPY RANGESSTANDARD DOSE: 2.0 - 3.0 Includes: PROPHYLAXIS forvenous thrombosis, systemic embolization; TREATMENT for venous thrombosis and/or pulmonary embolus.HIGH RISK: Target INR is 2.5-3.5 for patients with mechanical heart valves.U/S, ABDOMINAL, [id number] 14: 19:00Abdomen limited area? Add comment if [...] MDReport Verified Date/Time: 06/01/2018 14:19:45 Reading Location: [address] Transitional Reading Room CBC W/PLT COUNT & AUTO [id number] 06:28:00 Test Item Value Reference Range Comments WHITE BLOOD CELL COUNT (BEAKER) (test msco=417) 14.2 K/ L 3.5-10.5 RED BLOOD CELL COUNT (BEAKER) (test eqjf=951) 4.02 M/ L 4.63-6.08 HEMOGLOBIN (BEAKER) (test geao=534) 11.8 GM/DL 13.7-17.5 HEMATOCRIT (BEAKER) (test gqje=586) 37.3 % 40.1-51.0 MEAN CORPUSCULAR VOLUME (BEAKER) (test gqxy=392) 92.8 fL 79.0-92.2 MEAN CORPUSCULAR HEMOGLOBIN (BEAKER) (test 29.4 pg 25.7-32.2 duvd=788) MEAN CORPUSCULAR HEMOGLOBIN CONC (BEAKER) (test 31.6 GM/DL 32.3-36.5 uckp=758) RED CELL DISTRIBUTION WIDTH (BEAKER) (test 14.4 % 11.6-14.4 marc=072) PLATELET COUNT (BEAKER) (test bcsw=885) 235 K/CU MM 150-450 MEAN PLATELET VOLUME (BEAKER) (test xjpk=305) 11.4 fL 9.4-12.4 NUCLEATED RED BLOOD CELLS (BEAKER) (test 0 /100 WBC 0-0 imui=959) NEUTROPHILS RELATIVE PERCENT (BEAKER) (test 79 % sdwn=470) LYMPHOCYTES RELATIVE PERCENT (BEAKER) (test 10 % cqcz=404) MONOCYTES RELATIVE PERCENT (BEAKER) (test 8 % sufj=923) EOSINOPHILS RELATIVE PERCENT (BEAKER) (test 1 % iaqy=606) BASOPHILS RELATIVE PERCENT (BEAKER) (test 0 % djqc=238) NEUTROPHILS ABSOLUTE COUNT (BEAKER) (test 11.26 K/ L 1.78-5.38 ykuc=207) LYMPHOCYTES ABSOLUTE COUNT (BEAKER) (test 1.46 K/ L 1.32-3.57 qxeb=276) MONOCYTES ABSOLUTE COUNT (BEAKER) (test 1.20 K/ L 0.30-0.82 gwot=923) EOSINOPHILS ABSOLUTE COUNT (BEAKER) (test 0.12 K/ L 0.04-0.54 tmny=166) BASOPHILS ABSOLUTE COUNT (BEAKER) (test 0.05 K/ L 0.01-0.08 azvj=470) IMMATURE GRANULOCYTES-RELATIVE PERCENT (BEAKER) 1 % 0-1 (test qjhx=7857) [id number] 05:51:00 Test Item Value Reference Range Comments MAGNESIUM (BEAKER) (test iojp=295) 2.0 mg/dL 1.6-2.6 BASIC METABOLIC [id number] 05:51:00 Test Item Value Reference Range Comments SODIUM (BEAKER) (test 140 meq/L 136-145 huix=731) POTASSIUM (BEAKER) (test 3.8 meq/L 3.5-5.1 uaxe=907) CHLORIDE (BEAKER) (test 106 meq/L 98-107 ejqh=913) CO2 (BEAKER) (test 27 meq/L 22-29 teus=338) BLOOD UREA NITROGEN 13 mg/dL 7-21 (BEAKER) (test usib=274) CREATININE (BEAKER) (test 0.69 mg/dL 0.57-1.25 xhxc=227) GLUCOSE RANDOM (BEAKER) 140 mg/dL 70-105 (test amsi=957) CALCIUM (BEAKER) (test 8.2 mg/dL 8.4-10.2 nnbw=180) EGFR (BEAKER) (test 136 mL/min/1.73 sq m ESTIMATED GFR IS NOT quda=6427) ACCURATE CREATININE CLEARANCE IN PREDICTING GLOMERULAR FILTRATION RATE. ESTIMATED GFR IS NOT APPLICABLE FOR DIALYSIS PATIENTS. Specimen slightly ictericHEPATIC FUNCTION [id number] 05:51:00 Test Item Value Reference Range Comments TOTAL PROTEIN (BEAKER) (test kjvx=475) 5.9 gm/dL 6.0-8.3 ALBUMIN (BEAKER) (test scsp=1749) 2.6 g/dL 3.5-5.0 BILIRUBIN TOTAL (BEAKER) (test hlkt=432) 4.1 mg/dL 0.2-1.2 BILIRUBIN DIRECT (BEAKER) (test rtfg=418) 3.2 mg/dL 0.1-0.5 ALKALINE PHOSPHATASE (BEAKER) (test cezs=334) 103 U/L 40-150 AST (SGOT) (BEAKER) (test rfgm=382) 95 U/L 5-34 ALT (SGPT) (BEAKER) (test ayty=181) 48 U/L 6-55 Specimen slightly ictericPT/[id number] 05:30:00 Test Item Value Reference Range Comments PROTIME (BEAKER) (test epnp=492) 16.0 seconds 11.7-14.7 INR (BEAKER) (test dvzh=319) 1.3 <=5.9 PARTIAL THROMBOPLASTIN TIME (BEAKER) (test 38.9 seconds 22.5-36.0 ampj=971) RECOMMENDED COUMADIN/WARFARIN INR THERAPY RANGESSTANDARD DOSE: 2.0 - 3.0 Includes: PROPHYLAXIS forvenous thrombosis, systemic embolization; TREATMENT for venous thrombosis and/or pulmonary embolus.HIGH RISK: Target INR is 2.5-3.5 for patients with mechanical heart valves.PROTHROMBIN TIME/[id number] 05:29: 00 Test Item Value Reference Range Comments PROTIME (BEAKER) (test mabt=933) 16.0 seconds 11.7-14.7 INR (BEAKER) (test cykl=536) 1.3 <=5.9 RECOMMENDED COUMADIN/WARFARIN INR THERAPY RANGESSTANDARD DOSE: 2.0 - 3.0 Includes: PROPHYLAXIS forvenous thrombosis, systemic embolization; TREATMENT for venous thrombosis and/or pulmonary embolus.HIGH RISK: Target INR is 2.5-3.5 for patients with mechanical heart valves.RAD, CHEST, 1 VIEW, NON [id number] 11:58:00Reason for exam:->pancreatitisShould this be performed [...] consolidation inthe left lung base. Signed: Michael Brioneseport Verified Date/Time: 05/31/2018 11:58:54 Reading Location: [facility] Radiology Reading Room CBC W/PLT COUNT & AUTO [id number] 08:44:00 Test Item Value Reference Range Comments WHITE BLOOD CELL COUNT (BEAKER) (test hyte=330) 21.6 K/ L 3.5-10.5 RED BLOOD CELL COUNT (BEAKER) (test xdzk=716) 4.15 M/ L 4.63-6.08 HEMOGLOBIN (BEAKER) (test pdll=916) 12.3 GM/DL 13.7-17.5 HEMATOCRIT (BEAKER) (test jgsj=680) 38.0 % 40.1-51.0 MEAN CORPUSCULAR VOLUME (BEAKER) (test czou=833) 91.6 fL 79.0-92.2 MEAN CORPUSCULAR HEMOGLOBIN (BEAKER) (test 29.6 pg 25.7-32.2 bylt=522) MEAN CORPUSCULAR HEMOGLOBIN CONC (BEAKER) (test 32.4 GM/DL 32.3-36.5 lvvp=932) RED CELL DISTRIBUTION WIDTH (BEAKER) (test 13.9 % 11.6-14.4 svgv=478) PLATELET COUNT (BEAKER) (test noie=992) 232 K/CU MM 150-450 MEAN PLATELET VOLUME (BEAKER) (test cjeb=412) 11.4 fL 9.4-12.4 NUCLEATED RED BLOOD CELLS (BEAKER) (test 0 /100 WBC 0-0 awlo=795) (CELLAVISION MANUAL DIFF)2018-05-31 08:44:00 Test Item Value Reference Range Comments NEUTROPHILS - REL (CELLAVISION)(BEAKER) (test 63 % ntru=5752) LYMPHOCYTES - REL (CELLAVISION)(BEAKER) (test 5 % vnty=9603) MONOCYTES - REL (CELLAVISION)(BEAKER) (test 13 % ffdz=2003) EOSINOPHILS - REL (CELLAVISION)(BEAKER) (test 1 % rdri=9324) BANDS - REL (CELLAVISION)(BEAKER) (test 18 % 0-10 vtmu=4844) NEUTROPHILS - ABS (CELLAVISION)(BEAKER) (test 13.61 K/ul 1.78-5.38 ydth=0322) LYMPHOCYTES - ABS (CELLAVISION)(BEAKER) (test 1.08 K/ul 1.32-3.57 wbgn=4724) MONOCYTES - ABS (CELLAVISION)(BEAKER) (test 2.81 K/uL 0.30-0.82 pggc=2342) EOSINOPHILS - ABS (CELLAVISION)(BEAKER) (test 0.22 K/uL 0.04-0.54 uxfh=5774) BANDS - ABS (CELLAVISION)(BEAKER) (test 3.89 K/uL 0.00-0.80 ohva=9707) TOTAL COUNTED (BEAKER) (test vytn=3751) 100 RBC MORPHOLOGY (BEAKER) (test sbys=181) Normal SMUDGE CELLS (BEAKER) (test nmvt=8119) Present GIANT PLATELETS (BEAKER) (test hhux=024) Present ARTIFACT (CELLAVISION)(BEAKER) (test ooys=7275) Present PLATELET CONCENTRATION (CELLAVISION)(BEAKER) Adequate (test ptly=2197) Received comment: User comments: Slide comments:[id number] 04:27:00 Test Item Value Reference Range Comments MAGNESIUM (BEAKER) (test aiox=316) 1.6 mg/dL 1.6-2.6 BASIC METABOLIC [id number] 04:27:00 Test Item Value Reference Range Comments SODIUM (BEAKER) (test 139 meq/L 136-145 iicz=609) POTASSIUM (BEAKER) (test 3.7 meq/L 3.5-5.1 iiud=097) CHLORIDE (BEAKER) (test 101 meq/L 98-107 cgdy=716) CO2 (BEAKER) (test 28 meq/L 22-29 wdtx=253) BLOOD UREA NITROGEN 21 mg/dL 7-21 (BEAKER) (test kiiz=117) CREATININE (BEAKER) (test 0.80 mg/dL 0.57-1.25 xenk=865) GLUCOSE RANDOM (BEAKER) 135 mg/dL 70-105 (test agwb=867) CALCIUM (BEAKER) (test 8.0 mg/dL 8.4-10.2 hzxs=238) EGFR (BEAKER) (test 114 mL/min/1.73 sq m ESTIMATED GFR IS NOT chww=3178) ACCURATE CREATININE CLEARANCE IN PREDICTING GLOMERULAR FILTRATION RATE. ESTIMATED GFR IS NOT APPLICABLE FOR DIALYSIS PATIENTS. Specimen moderately ictericHEPATIC FUNCTION [id number] 04:27:00 Test Item Value Reference Range Comments TOTAL PROTEIN (BEAKER) (test vers=127) 6.1 gm/dL 6.0-8.3 ALBUMIN (BEAKER) (test ldwy=7013) 2.7 g/dL 3.5-5.0 BILIRUBIN TOTAL (BEAKER) (test bxqh=030) 5.2 mg/dL 0.2-1.2 BILIRUBIN DIRECT (BEAKER) (test cvsv=796) 4.1 mg/dL 0.1-0.5 ALKALINE PHOSPHATASE (BEAKER) (test lmgr=910) 80 U/L 40-150 AST (SGOT) (BEAKER) (test lrhe=865) 39 U/L 5-34 ALT (SGPT) (BEAKER) (test sqqi=039) 29 U/L 6-55 Specimen moderately ictericPT/[id number] 04:15:00 Test Item Value Reference Range Comments PROTIME (BEAKER) (test azty=506) 17.0 seconds 11.7-14.7 INR (BEAKER) (test fesx=906) 1.4 <=5.9 PARTIAL THROMBOPLASTIN TIME (BEAKER) (test 39.4 seconds 22.5-36.0 abgq=370) RECOMMENDED COUMADIN/WARFARIN INR THERAPY RANGESSTANDARD DOSE: 2.0 - 3.0 Includes: PROPHYLAXIS forvenous thrombosis, systemic embolization; TREATMENT for venous thrombosis and/or pulmonary embolus.HIGH RISK: Target INR is 2.5-3.5 for patients with mechanical heart valves.PROTHROMBIN TIME/[id number] 04:14: 00 Test Item Value Reference Range Comments PROTIME (BEAKER) (test nrcc=613) 17.0 seconds 11.7-14.7 INR (BEAKER) (test ixwx=742) 1.4 <=5.9 RECOMMENDED COUMADIN/WARFARIN INR THERAPY RANGESSTANDARD DOSE: 2.0 - 3.0 Includes: PROPHYLAXIS forvenous thrombosis, systemic embolization; TREATMENT for venous thrombosis and/or pulmonary embolus.HIGH RISK: Target INR is 2.5-3.5 for patients with mechanical heart valves.URINALYSIS W/ REFLEX URINE [id number] 21:53:00 Test Item Value Reference Range Comments COLOR (BEAKER) (test yatn=721) Dark Yellow CLARITY (BEAKER) (test lxxo=436) Clear SPECIFIC GRAVITY UA (BEAKER) (test qhar=540) 1.050 1.001-1.035 PH UA (BEAKER) (test sltk=185) 6.5 5.0-8.0 PROTEIN UA (BEAKER) (test gxjg=934) 100 mg/dL Negative GLUCOSE UA (BEAKER) (test doqn=292) Negative Negative KETONES UA (BEAKER) (test svbx=781) 80 mg/dL Negative BILIRUBIN UA (BEAKER) (test gdpq=437) Positive Negative BLOOD UA (BEAKER) (test yqhf=572) Small Negative NITRITE UA (BEAKER) (test rrnj=483) Negative Negative LEUKOCYTE ESTERASE UA (BEAKER) (test bgby=423) Negative Negative UROBILINOGEN UA (BEAKER) (test kwnj=949) 2.0 mg/dL 0.2-1.0 RBC UA (BEAKER) (test jopo=058) 20 /HPF WBC UA (BEAKER) (test jeek=582) 1 /HPF SQUAMOUS EPITHELIAL (BEAKER) (test miru=319) < /HPF CRYSTALS, URINE (BEAKER) (test cbgt=2458) Rare SOURCE(BEAKER) (test pifw=6940) CBC W/PLT COUNT & AUTO [id number] 21:33:00 Test Item Value Reference Range Comments WHITE BLOOD CELL COUNT (BEAKER) (test qypf=590) 26.6 K/ L 3.5-10.5 RED BLOOD CELL COUNT (BEAKER) (test humv=389) 4.57 M/ L 4.63-6.08 HEMOGLOBIN (BEAKER) (test kkpr=899) 13.6 GM/DL 13.7-17.5 HEMATOCRIT (BEAKER) (test poqa=713) 41.6 % 40.1-51.0 MEAN CORPUSCULAR VOLUME (BEAKER) (test ueao=103) 91.0 fL 79.0-92.2 MEAN CORPUSCULAR HEMOGLOBIN (BEAKER) (test 29.8 pg 25.7-32.2 jpal=643) MEAN CORPUSCULAR HEMOGLOBIN CONC (BEAKER) (test 32.7 GM/DL 32.3-36.5 ypys=272) RED CELL DISTRIBUTION WIDTH (BEAKER) (test 14.1 % 11.6-14.4 ljld=308) PLATELET COUNT (BEAKER) (test nvmr=924) 287 K/CU MM 150-450 MEAN PLATELET VOLUME (BEAKER) (test fcvk=464) 11.8 fL 9.4-12.4 NUCLEATED RED BLOOD CELLS (BEAKER) (test 0 /100 WBC 0-0 jzan=937) (CELLAVISION MANUAL DIFF)2018-05-30 21:33:00 Test Item Value Reference Range Comments NEUTROPHILS - REL (CELLAVISION)(BEAKER) (test 84 % zecm=5239) LYMPHOCYTES - REL (CELLAVISION)(BEAKER) (test 4 % gdab=6418) MONOCYTES - REL (CELLAVISION)(BEAKER) (test 6 % sobl=3082) EOSINOPHILS - REL (CELLAVISION)(BEAKER) (test 1 % vcgo=4920) BANDS - REL (CELLAVISION)(BEAKER) (test 5 % 0-10 lsmk=2263) NEUTROPHILS - ABS (CELLAVISION)(BEAKER) (test 22.34 K/ul 1.78-5.38 wfqs=3538) LYMPHOCYTES - ABS (CELLAVISION)(BEAKER) (test 1.06 K/ul 1.32-3.57 ibgz=1345) MONOCYTES - ABS (CELLAVISION)(BEAKER) (test 1.60 K/uL 0.30-0.82 vqlw=2818) EOSINOPHILS - ABS (CELLAVISION)(BEAKER) (test 0.27 K/uL 0.04-0.54 ihau=6313) BANDS - ABS (CELLAVISION)(BEAKER) (test 1.33 K/uL 0.00-0.80 ukck=4151) TOTAL COUNTED (BEAKER) (test dgux=7645) 100 RBC MORPHOLOGY (BEAKER) (test zggh=332) Normal SMUDGE CELLS (BEAKER) (test wzth=7885) Present GIANT PLATELETS (BEAKER) (test nell=395) Present VACUOLATED NEUTROPHILS (BEAKER) (test ywpr=498) Present ARTIFACT (CELLAVISION)(BEAKER) (test nghl=5150) Present PLATELET CONCENTRATION (CELLAVISION)(BEAKER) Adequate (test rbms=6453) Received comment: User comments: Slide comments:TROPONIN [id number] 21:32:00 Test Item Value Reference Range Comments TROPONIN I (BEAKER) (test unyr=701) < ng/mL 0.00-0.03 Troponin I (TnI) levels [...] acute neurological disease, and persistent tachyarrhythmia.BASIC METABOLIC [id number] 21:29:00 Test Item Value Reference Range Comments SODIUM (BEAKER) (test 134 meq/L 136-145 xprg=471) POTASSIUM (BEAKER) (test 3.6 meq/L 3.5-5.1 uihk=490) CHLORIDE (BEAKER) (test 99 meq/L 98-107 mjqb=343) CO2 (BEAKER) (test 25 meq/L 22-29 ofwr=874) BLOOD UREA NITROGEN 25 mg/dL 7-21 (BEAKER) (test cxca=421) CREATININE (BEAKER) (test 0.80 mg/dL 0.57-1.25 qunv=660) GLUCOSE RANDOM (BEAKER) 144 mg/dL 70-105 (test qcvg=347) CALCIUM (BEAKER) (test 7.8 mg/dL 8.4-10.2 pjxs=425) EGFR (BEAKER) (test 114 mL/min/1.73 sq m ESTIMATED GFR IS NOT iede=4597) ACCURATE CREATININE CLEARANCE IN PREDICTING GLOMERULAR FILTRATION RATE. ESTIMATED GFR IS NOT APPLICABLE FOR DIALYSIS PATIENTS. Specimen moderately [id number] 21:27:00 Test Item Value Reference Range Comments MAGNESIUM (BEAKER) (test jhcd=779) 1.6 mg/dL 1.6-2.6 LIPID [id number] 21:27:00 Test Item Value Reference Range Comments TRIGLYCERIDES (BEAKER) (test ngkc=882) 102 mg/dL CHOLESTEROL (BEAKER) (test anqx=447) 101 mg/dL HDL CHOLESTEROL (BEAKER) (test dilo=748) 17 mg/dL LDL CHOLESTEROL CALCULATED (BEAKER) (test 64 mg/dL rdue=685) Triglyceride Reference Range: Low Risk <150 Borderline 150- 199 High Risk 200-499 Very High Risk >=500Cholesterol Reference Range: Low Risk <200 Borderline 200-239 High Risk > 240HDL Cholesterol Reference Range: Low Risk >=60 High Risk <40LDL Cholesterol Reference Range: Optimal <100 Near Optimal 100-129 Borderline 130-159 High 160-189 Very High >=190 Specimen moderatelyictericHEPATIC FUNCTION [id number] 21:27: 00 Test Item Value Reference Range Comments TOTAL PROTEIN (BEAKER) (test atdt=731) 6.5 gm/dL 6.0-8.3 ALBUMIN (BEAKER) (test mgod=8164) 2.9 g/dL 3.5-5.0 BILIRUBIN TOTAL (BEAKER) (test vbrl=353) 5.1 mg/dL 0.2-1.2 BILIRUBIN DIRECT (BEAKER) (test qsic=027) 3.9 mg/dL 0.1-0.5 ALKALINE PHOSPHATASE (BEAKER) (test ebmw=860) 87 U/L 40-150 AST (SGOT) (BEAKER) (test rncz=692) 38 U/L 5-34 ALT (SGPT) (BEAKER) (test twug=977) 28 U/L 6-55 Specimen moderately ictericGAMMA GLUTAMYL TRANSFERASE (GGT)2018-05-30 21:27:00 Test Item Value Reference Range Comments GAMMA GLUTAMYL TRANSFERASE (BEAKER) (test fcvm=851) 55 U/L 9-64 Specimen moderately [id number] 21:27:00 Test Item Value Reference Range Comments LIPASE (BEAKER) (test todd=904) 227 U/L 8-78 Specimen moderately ictericPROTHROMBIN TIME/[id number] 21:05:00 Test Item Value Reference Range Comments PROTIME (BEAKER) (test fdux=700) 17.1 seconds 11.7-14.7 INR (BEAKER) (test dupx=638) 1.4 <=5.9 RECOMMENDED COUMADIN/WARFARIN INR THERAPY RANGESSTANDARD DOSE: 2.0 - 3.0 Includes: PROPHYLAXIS forvenous thrombosis, systemic embolization; TREATMENT for venous thrombosis and/or pulmonary embolus.HIGH RISK: Target INR is 2.5-3.5 for patients with mechanical heart valves.
--- NOTE | 2018-08-27 11:06 | RAD REPORT ---
EXAM DESCRIPTION: RAD - Chest Single View - 08/27/2018 11:00 am CLINICAL HISTORY: DYSPNEA Chest pain. COMPARISON: Chest Single View dated 07/26/2018; Chest Single View dated 07/09/2018; Chest Single View d ated 05/30/2018 FINDINGS: Portable technique limits examination quality. The lungs are underinflated but grossly clear. The heart is normal in size. No displaced fractures. IMPRESSION: Underinflated lungs.
[2018-08-27 11:07] LABS: Absolute Lymphocytes (CBC) 2.5 K/uL (0.7-4.9); Basophils % 0.6 % (0-1.3); Hematocrit 23.6 % (39.6-49.0); Lymphocytes % 14.6 % (15.3-44.8); MPV 8.8 fL (7.6-11.3); RBC Red Blood Cell Count 2.72 M/uL (4.33-5.43)
[2018-08-27 11:16] LABS: Protime INR 1.7
[2018-08-27] MEDS ORDERED: PANTOPRAZOLE 40 MG INJ ONE ×2 (11:20→12:16)
[2018-08-27] MEDS ORDERED: ONDANSETRON 4 MG/2 ML VIAL ONE (11:20)
[2018-08-27] MEDS ORDERED: FENTANYL CITR 100 MCG/2 ML ONE (11:20)
[2018-08-27] MEDS ORDERED: NA CHLORIDE 0.9% 1,000 ML ONE ×2 (11:20→12:47)
--- NOTE | 2018-08-27 11:24 | ER ---
Nurse's Notes [facility] Name: Jann Alvarez Age: 28 yrs Sex: Male : 1990 Arrival Date: 08/27/2018 Time: 10:18 Bed 2 Private MD: Diagnosis: Abdominal tenderness;Gastrointestinal hemorrhage, unspecified;Anemia, unspecified;Autistic disorder;Elevated white blood cell count Presentation: 08/27 10:29 Presenting complaint: Mother states: "He has been having belly pain and black stools ss since yesterday." Pt told mother this morning that he also threw up 4 times yesterday and once this morning. Pt vomited 300 mL of coffee ground emesis during triage. Transition of care: patient was not received from another setting of care. Onset of symptoms was August 26, 2018. Risk Assessment: Do you want to hurt yourself or someone else? Patient reports no desire to harm self or others. Initial Sepsis Screen: Does the patient meet any 2 criteria? No. Patient's initial sepsis screen is negative. Does the patient have a suspected source of infection? No. Patient's initial sepsis screen is negative. Care prior to arrival: None. 10:29 Acuity: KIMBER 2 ss 10:29 Method Of Arrival: Ambulatory ss Historical: - Allergies: 10:35 meropenem; ss 10:35 Vancomycin; ss 10:35 Zosyn; ss - PMHx: 10:35 Autism; Lupus; Pancreatitis; ss - PSHx: 10:35 ALLEY drain/removed; ERCP; gall bladder stent x1; ss - Immunization history:: Adult Immunizations up to date. - Social history:: Smoking status: Patient/guardian denies using tobacco. - Ebola Screening: : Patient denies exposure to infectious person Patient denies travel to an Ebola-affected area in the 21 days before illness onset. Screenin:34 Abuse screen: Denies threats or abuse. Denies injuries from another. Nutritional ph screening: No deficits noted. Tuberculosis screening: No symptoms or risk factors identified. Fall Risk No fall in past 12 months (0 pts). No secondary diagnosis (0 pts). IV access (20 points). Ambulatory Aid- None/Bed Rest/Nurse Assist (0 pts). Gait- Weak (10 pts.). Mental Status- Oriented to own ability (0 pts). Total Chavez Fall Scale indicates Low Risk Score (25-44 pts). Fall prevention measures have been instituted. Side Rails Up X 2 Frequent Obs/Assesments occuring Family Present and informed to notify staff if they need to leave bedside As available Patient and Family Educated on Fall Prevention Program and strategies. Assessment: 11:00 General: Appears in no apparent distress. uncomfortable, ill, well groomed, Behavior is ph calm, cooperative. Pain: Complains of pain in abdomen. Neuro: Level of Consciousness is awake, alert, obeys commands, Oriented to person, place, time, situation. Cardiovascular: Capillary refill < 3 seconds in bilateral fingers Patient's skin is warm and dry. Respiratory: Airway is patent Respiratory effort is even, unlabored, Respiratory pattern is regular, symmetrical. GI: Abdomen is flat, non-distended, Bowel sounds present X 4 quads. Parent/caregiver reports the patient having vomiting, pain, dark tarry stools since yesterday. Derm: Skin is intact, Skin is pale, Skin temperature is cool. Musculoskeletal: Circulation, motion, and sensation intact. Range of motion: intact in all extremities. 12:00 Reassessment: Patient appears in no apparent distress at this time. No changes from previously documented assessment. Patient and/or family updated on plan of care and expected duration. Pain level reassessed. 13:19 Reassessment: Patient appears in no apparent distress at this time. Patient and/or ph family updated on plan of care and expected duration. Pain level reassessed. Patient is alert, oriented x 3, equal unlabored respirations, skin warm/dry/pink. Report called to [facility], awaiting EMS for transport. 14:03 Reassessment: Patient appears in no apparent distress at this time. Patient and/or ph family updated on plan of care and expected duration. Pain level reassessed. Patient is alert, oriented x 3, equal unlabored respirations, skin warm/dry/pink. Pt resting quietly, awaiting transfer, family at bedside. 15:07 Reassessment: Patient appears in no apparent distress at this time. Patient and/or ph family updated on plan of care and expected duration. Pain level reassessed. Patient is alert, oriented x 3, equal unlabored respirations, skin warm/dry/pink. Report given to Romain Loya EMT-P, pt transferred to [facility] w/ blood products transfusing. Vital Signs: 10:35 BP 115 / 86; Pulse 136; Resp 20; Temp 97.3(TE); Pulse Ox 100% on R/A; Weight 75.75 kg; ss Height 5 ft. 10 in. (177.80 cm); 11:35 BP 103 / 72; Pulse 114; Resp 18; Pulse Ox 98% on R/A; ph 13:05 BP 98 / 77; Pulse 106; Resp 18; Temp 97.4; Pulse Ox 100% on R/A; ph 14:04 BP 100 / 67; Pulse 99; Resp 16; Pulse Ox 100% ; ph 15:00 BP 107 / 70; Pulse 108; Resp 18; Temp 98.6; Pulse Ox 100% on R/A; ph 10:35 Body Mass Index 23.96 (75.75 kg, 177.80 cm) ED Course: 10:18 Patient arrived in ED. as 10:21 Rush Briones MD is Attending Physician. [facility] [place] 10:30 Sabrina Winters RN is Primary Nurse. ph 10:34 Triage completed. ss 10:35 Arm band placed on right wrist. ss 10:50 Initial lab(s) drawn, by wv, sent to lab. Inserted saline lock: 22 gauge in left ph antecubital area, using aseptic technique. Blood collected. 10:52 EKG done, by medical records field technician. reviewed by Rush Briones MD. sm3 10:57 X-ray completed. Portable x-ray completed in exam room. Patient tolerated procedure sw well. 10:59 XRAY Chest (1 view) In Process Unspecified. EDMS 11:35 Patient has correct armband on for positive identification. Placed in gown. Bed in low ph position. Call light in reach. Side rails up X2. Adult w/ patient. Pulse ox on. NIBP on. Door closed. Noise minimized. Warm blanket given. Pillow given. Head of bed elevated. 13:15 Inserted saline lock: 22 gauge in right antecubital area, using aseptic technique. ph Blood collected. 14:03 No provider procedures requiring assistance completed. ph 14:24 Inserted saline lock: 22 gauge in left antecubital area, using aseptic technique. aa5 15:09 Patient transferred, IV remains in place. ph Administered Medications: 11:21 Drug: Zofran 4 mg Route: IVP; Site: left antecubital; ph 14:41 Follow up: Response: No adverse reaction; Nausea is decreased ph 11:22 Drug: NS 0.9% 1000 ml Route: IV; Rate: 1 bolus; Site: left antecubital; ph 13:00 Follow up: Response: No adverse reaction; IV Status: Completed infusion; IV Intake: ph 1000ml 11:22 Drug: ProTONIX 40 mg Route: IVP; Site: left antecubital; ph 14:41 Follow up: Response: No adverse reaction ph 11:22 Drug: fentaNYL (PF) 25 mcg Route: IVP; Site: left antecubital; ph 12:45 Follow up: Response: No adverse reaction; Pain is decreased ph 12:05 Drug: ProTONIX 40 mg Route: IVP; Site: left antecubital; ph 14:41 Follow up: Response: No adverse reaction ph 12:05 Drug: ProTONIX 8 mg/hr Route: IV; Rate: 25 ml/hr; Site: left antecubital; ph 14:42 Follow up: Response: No adverse reaction; IV Status: Infusion continued upon transfer ph 12:05 Drug: fentaNYL (PF) 25 mcg Route: IVP; Site: left antecubital; ph 12:30 Follow up: Response: No adverse reaction; Pain is decreased ph 13:04 Drug: Flagyl 500 mg Volume: 100 ml; Route: IVPB; Rate: 200 ml/hr; Infused Over: 30 ph mins; Site: right antecubital; 13:40 Follow up: Response: No adverse reaction; IV Status: Completed infusion ph 13:04 Drug: NS 0.9% 1000 ml Route: IV; Rate: 1 bolus; Site: left antecubital; ph 14:42 Follow up: Response: No adverse reaction; IV Status: Completed infusion; IV Intake: ph 1000ml 13:05 Drug: fentaNYL (PF) 25 mcg Route: IVP; Site: left antecubital; ph 15:09 Follow up: Response: No adverse reaction; Pain is decreased ph 14:02 Drug: Cipro 400 mg Volume: 200 ml; Route: IVPB; Infused Over: 60 mins; Site: right ph antecubital; 15:09 Follow up: Response: No adverse reaction; IV Status: Completed infusion ph Medication: 14:50 Blood products: PRBCs X 1 unit given. ph Intake: 13:00 IV: 1000ml; Total: 1000ml. ph 14:42 IV: 1000ml; Total: 2000ml. ph Outcome: 11:23 ER care complete, transfer ordered by . rachelle 15:08 Transferred by ground EMS [place]. [place] [facility] [facility] [place]. X-rays sent w/ patient. 15:08 Condition: stable 15:08 Instructed on the need for transfer. 15:11 Patient left the ED. ph Signatures: Dispatcher [employer] EDRush Irvin MD MD cha Martinez, Amelia as Calderon, Audri, RN RN aa5 Kimberly Brar RN RN ss Hall, Patricia, RN RN ph Warren, Radha Maya [facility]
--- NOTE | 2018-08-27 11:24 | EDPHYS ---
Physician Documentation [facility] Name: Jann Alvarez Age: 28 yrs Sex: Male : 1990 Arrival Date: 08/27/2018 Time: 10:18 Bed 2 Private MD: ALFREDO Physician Rush Briones HPI: 08/27 11:13 This 28 yrs old Male presents to ER via Ambulatory with complaints of rachelle Abdominal Pain, Black/Tarry Stools, Nausea/Vomiting. 11:13 The patient presents to the emergency department with nausea, vomiting, that is rachelle intermittent, described as coffee ground in nature, abdominal pain. Onset: The symptoms/episode began/occurred 2 day(s) ago. Possible causes: unknown. The symptoms are aggravated by nothing. The symptoms are alleviated by nothing. Associated signs and symptoms: The patient has no apparent associated signs or symptoms. Severity of symptoms: At their worst the symptoms were moderate. The patient has experienced similar episodes in the past, several times. Historical: - Allergies: 10:35 meropenem; ss 10:35 Vancomycin; ss 10:35 Zosyn; ss - PMHx: 10:35 Autism; Lupus; Pancreatitis; ss - PSHx: 10:35 ALLEY drain/removed; ERCP; gall bladder stent x1; ss - Immunization history:: Adult Immunizations up to date. - Social history:: Smoking status: Patient/guardian denies using tobacco. - Ebola Screening: : Patient denies exposure to infectious person Patient denies travel to an Ebola-affected area in the 21 days before illness onset. ROS: 11:14 Constitutional: Negative for fever, chills, and weight loss, Eyes: Negative for injury, rachelle pain, redness, and discharge, ENT: Negative for injury, pain, and discharge, Neck: Negative for injury, pain, and swelling, Respiratory: Negative for shortness of breath, cough, wheezing, and pleuritic chest pain, Back: Negative for injury and pain, : Negative for injury, bleeding, discharge, and swelling, MS/Extremity: Negative for injury and deformity, Neuro: Negative for headache, weakness, numbness, tingling, and seizure, Psych: Negative for depression, anxiety, suicide ideation, homicidal ideation, and hallucinations, Allergy/Immunology: Negative for hives, rash, and allergies, Endocrine: Negative for neck swelling, polydipsia, polyuria, polyphagia, and marked weight changes, Hematologic/Lymphatic: Negative for swollen nodes, abnormal bleeding, and unusual bruising. 11:14 Cardiovascular: Positive for palpitations. 11:14 Abdomen/GI: Positive for abdominal pain, abdominal distension, black/tarry stool. 11:14 Skin: Positive for pallor. Exam: 11:14 Constitutional: This is a well developed, well nourished patient who is awake, alert, rachelle and in no acute distress. Head/Face: Normocephalic, atraumatic. Eyes: Pupils equal round and reactive to light, extra-ocular motions intact. Lids and lashes normal. Conjunctiva and sclera are non-icteric and not injected. Cornea within normal limits. Periorbital areas with no swelling, redness, or edema. ENT: Nares patent. No nasal discharge, no septal abnormalities noted. Tympanic membranes are normal and external auditory canals are clear. Oropharynx with no redness, swelling, or masses, exudates, or evidence of obstruction, uvula midline. Mucous membranes moist. Neck: Trachea midline, no thyromegaly or masses palpated, and no cervical lymphadenopathy. Supple, full range of motion without nuchal rigidity, or vertebral point tenderness. No Meningismus. Chest/axilla: Normal chest wall appearance and motion. Nontender with no deformity. No lesions are appreciated. Respiratory: Lungs have equal breath sounds bilaterally, clear to auscultation and percussion. No rales, rhonchi or wheezes noted. No increased work of breathing, no retractions or nasal flaring. Back: No spinal tenderness. No costovertebral tenderness. Full range of motion. Male : Normal genitalia with no discharge or lesions. MS/ Extremity: Pulses equal, no cyanosis. Neurovascular intact. Full, normal range of motion. Neuro: Awake and alert, GCS 15, oriented to person, place, time, and situation. Cranial nerves II-XII grossly intact. Motor strength 5/5 in all extremities. Sensory grossly intact. Cerebellar exam normal. Normal gait. Psych: Awake, alert, with orientation to person, place and time. Behavior, mood, and affect are within normal limits. 11:14 Cardiovascular: Rate: tachycardic, Rhythm: regular, Pulses: Pulses are 4+ in bilateral radial, brachial, femoral, popliteal, posterior tibial and and dorsalis pedis arteries.. Heart sounds: normal, Edema: is not appreciated, JVD: is not appreciated. Vital Signs: 10:35 BP 115 / 86; Pulse 136; Resp 20; Temp 97.3(TE); Pulse Ox 100% on R/A; Weight 75.75 kg; ss Height 5 ft. 10 in. (177.80 cm); 11:35 BP 103 / 72; Pulse 114; Resp 18; Pulse Ox 98% on R/A; ph 13:05 BP 98 / 77; Pulse 106; Resp 18; Temp 97.4; Pulse Ox 100% on R/A; ph 14:04 BP 100 / 67; Pulse 99; Resp 16; Pulse Ox 100% ; ph 15:00 BP 107 / 70; Pulse 108; Resp 18; Temp 98.6; Pulse Ox 100% on R/A; ph 10:35 Body Mass Index 23.96 (75.75 kg, 177.80 cm) ss MDM: 10:21 Patient medically screened. [facility] 11:17 Data reviewed: vital signs, nurses notes, lab test result(s), EKG, radiologic studies, rachelle plain films. 08/27 10:31 Order name: Basic Metabolic Panel; Complete Time: 11:54 ph 08/27 10:31 Order name: CBC with Diff; Complete Time: 11:54 ph 08/27 10:31 Order name: LFT's; Complete Time: 11:54 ph 08/27 10:31 Order name: Magnesium; Complete Time: 11:54 ph 08/27 10:31 Order name: NT PRO-BNP; Complete Time: 11:54 ph 08/27 10:31 Order name: PT-INR; Complete Time: 11:54 ph 08/27 10:31 Order name: Troponin (emerg Dept Use Only); Complete Time: 11:54 ph 08/27 10:31 Order name: Type And Screen ph 08/27 10:31 Order name: Lipase; Complete Time: 11:54 ph 08/27 10:38 Order name: Creatinine for Radiology; Complete Time: 11:54 rachelle 08/27 10:31 Order name: XRAY Chest (1 view); Complete Time: 11:12 ph 08/27 11:21 Order name: Bb Add On bd 08/27 12:47 Order name: Packed RBCs (Additional Unit) EDMS 08/27 12:55 Order name: ABO/RH no charge EDMD 08/27 10:31 Order name: EKG; Complete Time: 10:35 ph 08/27 10:31 Order name: Cardiac monitoring; Complete Time: 11:53 ph 08/27 10:31 Order name: EKG - Nurse/Tech; Complete Time: 11:53 ph 08/27 10:31 Order name: IV Saline Lock; Complete Time: 11:53 ph 08/27 10:31 Order name: Labs collected and sent; Complete Time: 11:53 ph 08/27 10:31 Order name: O2 Per Protocol; Complete Time: 11:54 ph 08/27 10:31 Order name: O2 Sat Monitoring; Complete Time: 11:54 ph 08/27 10:38 Order name: IV Saline Lock; Complete Time: 11:23 rachelle 08/27 10:38 Order name: Labs collected and sent; Complete Time: 11:23 rachelle 08/27 10:38 Order name: EKG - Nurse/Tech; Complete Time: 11:00 rachelle 08/27 10:39 Order name: IV Saline Lock - Large Bore; Complete Time: 10:53 rachelle 08/27 11:07 Order name: Transfuse; Complete Time: 15:10 rachelle Administered Medications: 11:21 Drug: Zofran 4 mg Route: IVP; Site: left antecubital; ph 14:41 Follow up: Response: No adverse reaction; Nausea is decreased ph 11:22 Drug: NS 0.9% 1000 ml Route: IV; Rate: 1 bolus; Site: left antecubital; ph 13:00 Follow up: Response: No adverse reaction; IV Status: Completed infusion; IV Intake: ph 1000ml 11:22 Drug: ProTONIX 40 mg Route: IVP; Site: left antecubital; ph 14:41 Follow up: Response: No adverse reaction ph 11:22 Drug: fentaNYL (PF) 25 mcg Route: IVP; Site: left antecubital; ph 12:45 Follow up: Response: No adverse reaction; Pain is decreased ph 12:05 Drug: ProTONIX 40 mg Route: IVP; Site: left antecubital; ph 14:41 Follow up: Response: No adverse reaction ph 12:05 Drug: ProTONIX 8 mg/hr Route: IV; Rate: 25 ml/hr; Site: left antecubital; ph 14:42 Follow up: Response: No adverse reaction; IV Status: Infusion continued upon transfer ph 12:05 Drug: fentaNYL (PF) 25 mcg Route: IVP; Site: left antecubital; ph 12:30 Follow up: Response: No adverse reaction; Pain is decreased ph 13:04 Drug: Flagyl 500 mg Volume: 100 ml; Route: IVPB; Rate: 200 ml/hr; Infused Over: 30 ph mins; Site: right antecubital; 13:40 Follow up: Response: No adverse reaction; IV Status: Completed infusion ph 13:04 Drug: NS 0.9% 1000 ml Route: IV; Rate: 1 bolus; Site: left antecubital; ph 14:42 Follow up: Response: No adverse reaction; IV Status: Completed infusion; IV Intake: ph 1000ml 13:05 Drug: fentaNYL (PF) 25 mcg Route: IVP; Site: left antecubital; ph 15:09 Follow up: Response: No adverse reaction; Pain is decreased ph 14:02 Drug: Cipro 400 mg Volume: 200 ml; Route: IVPB; Infused Over: 60 mins; Site: right ph antecubital; 15:09 Follow up: Response: No adverse reaction; IV Status: Completed infusion ph Disposition: 08/27/18 11:23 Transfer ordered to [facility]. Diagnosis are Abdominal tenderness, Gastrointestinal hemorrhage, unspecified, Anemia, unspecified, Autistic disorder, Elevated white blood cell count. - Reason for transfer: Higher level of care. - Accepting physician is to [facility], icu. - Condition is Stable. - Problem is new. - Symptoms have improved. Signatures: Dispatcher [employer] [facility] Rush Briones MD MD cha Smirch, Shelby, RN RN Sabrina Winters RN RN ph Corrections: (The following items were deleted from the chart) 10:48 10:42 Chest Single View+RAD.RAD.BRZ ordered. [facility] 12:03 11:23 08/27/2018 11:23 Transfer ordered to [facility]. Diagnosis is rachelle Abdominal tenderness; Gastrointestinal hemorrhage, unspecified; Anemia, unspecified; Autistic disorder. Reason for transfer: Higher level of care. Accepting physician is to [facility], icu. Condition is Stable. Problem is new. Symptoms have improved. [facility] 13:41 10:42 BASIC METABOLIC PANEL+C.LAB.BRZ ordered. EDMS EDMS 13:41 10:42 CBC+H.LAB.BRZ ordered. EDMS EDMS 13:41 10:42 HEPATIC FUNCTION+C.LAB.BRZ ordered. EDMS EDMS 13:41 10:42 LIPASE+C.LAB.BRZ ordered. EDMS EDMS 13:41 10:42 PROBNP+C.LAB.BRZ ordered. EDMS EDMS 13:41 12:47 Packed RBC Leukored ordered. EDMS EDMS 14:56 10:42 TYPE AND SCREEN+BB.LAB.BRZ ordered. EDMS EDMS 15:11 12:03 08/27/2018 11:23 Transfer ordered to [facility]. Diagnosis is ph Abdominal tenderness; Gastrointestinal hemorrhage, unspecified; Anemia, unspecified; Autistic disorder; Elevated white blood cell count. Reason for transfer: Higher level of care. Accepting physician is to [facility], icu. Condition is Stable. Problem is new. Symptoms have improved. rachelle
[2018-08-27 11:25] LABS: ALT/SGPT 11 U/L (12-78); AST/SGOT 7 U/L (15-37); Albumin 2.3 g/dL (3.4-5.0); Alkaline Phosphatase 102 U/L (45-117); BUN Blood Urea Nitrogen 22 mg/dL (7-18); Bicarbonate 29 mmol/L (21-32); Bilirubin Direct 0.1 mg/dL (0-0.2); Bilirubin Total 0.3 mg/dL (0.2-1.0); Glucose Level 130 mg/dL (74-106); Lipase 149 U/L (73-393); Magnesium 1.9 mg/dL (1.8-2.4); NT PRO-BNP 64 pg/mL (<125); Potassium 3.5 mmol/L (3.5-5.1); Sodium Level 141 mmol/L (136-145); Troponin (Emerg Dept Use Only) < 0.02 ng/mL (0.0-0.045)
[2018-08-27] MEDS ORDERED: PANTOPRAZOLE INJ 80 MG in NA CHLORIDE 0.9% 250 ML IV SCH (12:00)
[2018-08-27] MEDS ORDERED: METRONIDAZOLE 500mg IVPB 500 MG/100 ML BAG IV ONE (12:47)
[2018-08-27] MEDS ORDERED: CIPROFLOXACIN 400mg IV 400 MG/200 ML BAG IV ONE (12:47)
--- NOTE | 2018-08-28 10:42 | EKG ---
Test Date: 2018-08-27 Test Time: 10:40:37 [employer] Coordinator: ROLLY MEASUREMENT RESULTS: Intervals: Rate: 133 HI: 124 QRSD: 78 QT: 394 QTc: 586 [place]: P: 42 HI: 124 QRS: 19 T: 65 INTERPRETIVE STATEMENTS: Sinus tachycardia Nonspecific T wave abnormality Abnormal ECG Compared to ECG 07/26/2018 05:18:16 T-wave abnormality now present Myocardial infarct finding no longer present Electronically Signed On 08-28-18 10:41:33 CDT by Bishop Wright
== END 2018-08-27 15:11 | disposition short-term general hospital (02) ==
LOC: ER 10:16
DX: K92.2 Gastrointestinal hemorrhage, unspecified (principal); F84.0 Autistic disorder; D64.9 Anemia, unspecified; D72.829 Elevated white blood cell count, unspecified; Z88.1 Allergy status to other antibiotic agents; Z88.0 Allergy status to penicillin
CPT/HCPCS: 36415; 36430; 71045; 80048; 80076; 83690; 83735; 83880; 84484; 85025; 85610; 86850; 86900; 86901; 93005; 96361; 96365; 96366; 96367; 96368; 96375; 99285; C9113; J0744; J2405; J3010; J7030; P9016

== ENCOUNTER 2019-02-13 17:33 | Emergency (ER) | payer OTHER ==
--- OUTSIDE RECORDS SUMMARY | 2019-02-13 17:42 | XMS REPORT ---
:1990 [facility] Address [address] [place] [address] Care Team Providers Name Role Phone RONDACHRIS VINICIUS Unavailable Unavailable MINA GILL Unavailable Unavailable DALE BOWER Unavailable Unavailable JETT CELAYA Unavailable Unavailable Payers Payer Name Policy Type Policy Number Effective Date Expiration Date Problems This patient has no known problems. Allergies, Adverse Reactions, Alerts Allergy Name Allergy Status Severity Reaction(s) Onset Inactive Treating Comments Type Date Date Clinician tazobactam DA Active U 2018-09 00:00:0 0 piperacillin DA Active U 2018-09 00:00:0 0 vancomycin DA Active U 2018-09 00:00:0 0 MEREPENEM DA Active U 2018-09 00:00:0 0 Medications This patient has no known medications. Results Test Description Test Time Test Comments Text Results Atomic Results Result Comments WOUND CULTURE + GRAM STAIN 2019-01-21 13:08:00 Test Item Value Reference Range Comments CULTURE (BEAKER) (test STAPHYLOCOCCUS AUREUS 4+ Staphylococcus aureus izki=[id number]) Clindamycin (test code=10) Erythromycin (test code=4) Linezolid (test code=40) Nitrofurantoin (test code=23) Oxacillin (test code=14) Rifampin (test code=43) Tetracycline (test code=2) Trimethoprim + Sulfamethoxazole (test code=47) Vancomycin (test code=13) GRAM STAIN RESULT (BEAKER) 4+ White blood cells seen (test ldco=7144) GRAM STAIN RESULT (BEAKER) 1+ gram positive cocci in (test ptdc=[id number]) pairs 4+ Skin floraCOMPREHENSIVE METABOLIC [id number] 04:14:00 Test Item Value Reference Range Comments SODIUM (test code=NA) 142 mmol/L 134-147 POTASSIUM (test code=K) 3.8 mmol/L 3.4-5.0 CHLORIDE (test code=CL) 108 mmol/L 100-108 CARBON DIOXIDE (test code=CO2) 26 mmol/L 21-32 ANION GAP (test code=GAP) 8.0 GAP calc 4.0-15.0 GLUCOSE (test code=GLU) 76 MG/DL 70-110 BLOOD UREA NITROGEN (test code=BUN) 4 MG/DL 7-18 GLOMERULAR FILTRATION RATE (test >=60 max estimate estGFR >60 code=GFR) CREATININE (test code=CREAT) 0.5 MG/DL 0.8-1.3 TOTAL PROTEIN (test code=PROT) 5.8 G/DL 6.4-8.2 ALBUMIN (test code=ALB) 1.9 G/DL 3.4-5.0 GLOBULIN (test code=GLOB) 3.9 GM/dL ALBUMIN/GLOBULIN RATIO (test 0.5 RATIO 1.2-2.2 code=A/G) CALCIUM (test code=CA) 8.1 MG/DL 8.5-10.1 BILIRUBIN TOTAL (test code=BILT) 0.40 MG/DL 0.2-1.2 SGOT/AST (test code=AST) 16 Unit/L 15-37 SGPT/ALT (test code=ALT) 11 Unit/L 12-78 ALKALINE PHOSPHATASE TOTAL (test 123 Unit/L 50-136 code=ALKP) COMPREHENSIVE METABOLIC [id number] 04:07:00 Test Item Value Reference Range Comments SODIUM (test code=NA) 142 mmol/L 134-147 POTASSIUM (test code=K) 3.8 mmol/L 3.4-5.0 CHLORIDE (test code=CL) 108 mmol/L 100-108 CARBON DIOXIDE (test code=CO2) 26 mmol/L 21-32 ANION GAP (test code=GAP) 8.0 GAP calc 4.0-15.0 GLUCOSE (test code=GLU) 76 MG/DL 70-110 BLOOD UREA NITROGEN (test code=BUN) 4 MG/DL 7-18 GLOMERULAR FILTRATION RATE (test code=GFR) estGFR >60 CREATININE (test code=CREAT) MG/DL 0.8-1.3 TOTAL PROTEIN (test code=PROT) G/DL 6.4-8.2 ALBUMIN (test code=ALB) G/DL 3.4-5.0 GLOBULIN (test code=GLOB) GM/dL ALBUMIN/GLOBULIN RATIO (test code=A/G) RATIO 1.2-2.2 CALCIUM (test code=CA) 8.1 MG/DL 8.5-10.1 BILIRUBIN TOTAL (test code=BILT) MG/DL 0.2-1.2 SGOT/AST (test code=AST) Unit/L 15-37 SGPT/ALT (test code=ALT) Unit/L 12-78 ALKALINE PHOSPHATASE TOTAL (test code=ALKP) Unit/L 50-136 CBC W/AUTO [id number] 04:05:00 Test Item Value Reference Range Comments WHITE BLOOD CELL (test code=WBC) 6.1 K/mm3 3.5-11.0 RED BLOOD CELL (test code=RBC) 3.01 M/mm3 4.70-6.10 HEMOGLOBIN (test code=HGB) 8.6 G/DL 12.3-15.9 HEMATOCRIT (test code=HCT) 28.2 % 35.8-46.7 MEAN CELL VOLUME (test code=MCV) 93.7 Fl 86.3-98.9 MEAN CELL HGB (test code=MCH) 28.6 pg 28.9-34.4 MEAN CELL HGB CONCETRATION (test code=MCHC) 30.5 G/DL 32.1-34.5 RED CELL DISTRIBUTION WIDTH (test code=RDW) 17.3 SD 11.5-14.5 PLATELET COUNT (test code=PLT) 205.0 K/mm3 150-450 MEAN PLATELET VOLUME (test code=MPV) 10.20 fL 7.0-9.6 NEUTROPHIL % (test code=NT%) 69.8 % 40-76 LYMPHOCYTE % (test code=LY%) 20.2 % 20.5-51.1 MONOCYTE % (test code=MO%) 7.4 % 1.7-9.3 EOSINOPHIL % (test code=EO%) 2.3 % 0.0-6.0 BASOPHIL % (test code=BA%) 0.3 % 0.0-2.0 NEUTROPHIL # (test code=NT#) 4.22 K/mm3 1.8-7.6 LYMPHOCYTE # (test code=LY#) 1.2 K/mm3 0.6-3.0 MONOCYTE # (test code=MO#) 0.5 K/mm3 0.2-1.5 EOSINOPHIL # (test code=EO#) 0.1 K/mm3 0.0-0.4 BASOPHIL # (test code=BA#) 0.0 K/mm3 0.0-0.2 MANUAL DIFF REQUIRED (test code=MDIFF) NO DIFF/SCN CRITERIA CBC W/AUTO [id number] 18:44:00 Test Item Value Reference Range Comments WHITE BLOOD CELL (test code=WBC) 5.7 K/mm3 3.5-11.0 RED BLOOD CELL (test code=RBC) 3.03 M/mm3 4.70-6.10 HEMOGLOBIN (test code=HGB) 8.7 G/DL 12.3-15.9 HEMATOCRIT (test code=HCT) 28.4 % 35.8-46.7 MEAN CELL VOLUME (test code=MCV) 93.7 Fl 86.3-98.9 MEAN CELL HGB (test code=MCH) 28.7 pg 28.9-34.4 MEAN CELL HGB CONCETRATION (test code=MCHC) 30.6 G/DL 32.1-34.5 RED CELL DISTRIBUTION WIDTH (test code=RDW) 17.4 SD 11.5-14.5 PLATELET COUNT (test code=PLT) 202.0 K/mm3 150-450 MEAN PLATELET VOLUME (test code=MPV) 9.90 fL 7.0-9.6 NEUTROPHIL % (test code=NT%) 71.4 % 40-76 LYMPHOCYTE % (test code=LY%) 18.7 % 20.5-51.1 MONOCYTE % (test code=MO%) 7.3 % 1.7-9.3 EOSINOPHIL % (test code=EO%) 2.3 % 0.0-6.0 BASOPHIL % (test code=BA%) 0.3 % 0.0-2.0 NEUTROPHIL # (test code=NT#) 4.08 K/mm3 1.8-7.6 LYMPHOCYTE # (test code=LY#) 1.1 K/mm3 0.6-3.0 MONOCYTE # (test code=MO#) 0.4 K/mm3 0.2-1.5 EOSINOPHIL # (test code=EO#) 0.1 K/mm3 0.0-0.4 BASOPHIL # (test code=BA#) 0.0 K/mm3 0.0-0.2 MANUAL DIFF REQUIRED (test code=MDIFF) NO DIFF/SCN CRITERIA BASIC METABOLIC [id number] 07:26:00 Test Item Value Reference Range Comments SODIUM (test code=NA) 143 mmol/L 134-147 POTASSIUM (test code=K) 3.8 mmol/L 3.4-5.0 CHLORIDE (test code=CL) 110 mmol/L 100-108 CARBON DIOXIDE (test code=CO2) 26 mmol/L 21-32 ANION GAP (test code=GAP) 7.0 GAP calc 4.0-15.0 GLUCOSE (test code=GLU) 86 MG/DL 70-110 BLOOD UREA NITROGEN (test code=BUN) 5 MG/DL 7-18 GLOMERULAR FILTRATION RATE (test >=60 max estimate estGFR >60 code=GFR) CREATININE (test code=CREAT) 0.5 MG/DL 0.8-1.3 CALCIUM (test code=CA) 7.8 MG/DL 8.5-10.1 CBC W/AUTO [id number] 07:19:00 Test Item Value Reference Range Comments WHITE BLOOD CELL (test code=WBC) 7.1 K/mm3 3.5-11.0 RED BLOOD CELL (test code=RBC) 3.02 M/mm3 4.70-6.10 HEMOGLOBIN (test code=HGB) 8.5 G/DL 12.3-15.9 HEMATOCRIT (test code=HCT) 28.2 % 35.8-46.7 MEAN CELL VOLUME (test code=MCV) 93.4 Fl 86.3-98.9 MEAN CELL HGB (test code=MCH) 28.1 pg 28.9-34.4 MEAN CELL HGB CONCETRATION (test code=MCHC) 30.1 G/DL 32.1-34.5 RED CELL DISTRIBUTION WIDTH (test code=RDW) 17.5 SD 11.5-14.5 PLATELET COUNT (test code=PLT) 218.0 K/mm3 150-450 MEAN PLATELET VOLUME (test code=MPV) 9.80 fL 7.0-9.6 NEUTROPHIL % (test code=NT%) 74.2 % 40-76 LYMPHOCYTE % (test code=LY%) 16.4 % 20.5-51.1 MONOCYTE % (test code=MO%) 7.1 % 1.7-9.3 EOSINOPHIL % (test code=EO%) 2.0 % 0.0-6.0 BASOPHIL % (test code=BA%) 0.3 % 0.0-2.0 NEUTROPHIL # (test code=NT#) 5.30 K/mm3 1.8-7.6 LYMPHOCYTE # (test code=LY#) 1.2 K/mm3 0.6-3.0 MONOCYTE # (test code=MO#) 0.5 K/mm3 0.2-1.5 EOSINOPHIL # (test code=EO#) 0.1 K/mm3 0.0-0.4 BASOPHIL # (test code=BA#) 0.0 K/mm3 0.0-0.2 MANUAL DIFF REQUIRED (test code=MDIFF) NO DIFF/SCN CRITERIA - CT ABD PELVIS [id number] 20:03:00 Name: FAVIOLA [place] [facility] : 1990 Age/S: 28 / M [address] [address] [place] [address] Unit #: [id number] Loc: [place] [address] Phys: Natalie Bahena MD Acct: [id number] Dis Date: Status : ADM IN PHONE #: [phone] Exam Date: 09/21/2018 1913 FAX #: Reason: hx of pancreatitis, CBD stent, abd pain, melena EXAMS: CPT: [id number] CT ABD PELVIS W/CONT 96645 Dictation location: [facility]. CT ABDOMEN AND PELVIS WITH IV CONTRAST HISTORY: hx of pancreatitis, CBD stent, abd pain, melena COMPARISON: CT abdomen and pelvis . TECHNIQUE: Axial CT images of the abdomen and pelvis were obtained with coronal and/or sagittal reformatted views. Automated exposure control, iterative reconstruction technique, and/or adjustment of mA and/ or kV according to patient's size was utilized for radiation dose reduction. IV CONTRAST: 100 ml Isovue-300. PO CONTRAST: None. FINDINGS: Partially imaged left pleural effusion, small to moderate with adjacent atelectasis. The heart size is normal. The gallbladder is distended without surrounding inflammatory changes. Diffuse low attenuation is seen throughout the liver suggestive of steatosis. Spleen and adrenal glands are unremarkable. Again noted is a double-J stent between the stomach and pancreatic tail. There is a small hypodensity along the pancreatic tail measuring up to 2 cm, unchanged. There is continued edema and inflammatory changes along the pancreas. A second collection located between the spleen and stomach measuring 2.7 x 2 cm is unchanged. Both kidneys are similar in size, shape and enhancement without evidence of hydronephrosis. Urinary bladder is contracted without wall thickening. The prostate is normal in size. No free air, free fluid or evidence of a bowel obstruction. The appendix is normal. There is some mild thickening involving the sigmoid colon and rectum. Multiple gastric varices. Splenic varices. 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 The aorta is normal in caliber. No abdominal or pelvic adenopathy. The bones are unremarkable. IMPRESSION: PAGE 1 Signed Report (CONTINUED) Name: FAVIOLA [place] [facility] : 1990 Age/S: 28 / M [address] [address] [place] [address] Unit #: [id number] Loc: [place] [address] Phys: Natalie Bahena MD Acct: [id number] Dis Date : Status: ADM IN PHONE #: [phone] Exam Date : 09/21/2018 191 FAX #: Reason: hx of pancreatitis, CBD stent, abd pain, melena EXAMS: CPT : [id number] CT ABD PELVIS W/CONT 69734 <Continued> Interval mild thickening involving the sigmoid colonand rectum with fluid may relate to a colitis, infectious versus inflammatory. The remainder of the exam is stable. 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 There is a second adjacent small fluid collection which is also unchanged. Left pleural effusion. Hepatic steatosis. at 2002 Reported and signed by: Shana Hooks M.D. CC: Natalie Bahena MD Technologist:Yvette Lugo RT(R)(CT) CTDI: DLP: Trnscb Date/Time: 09/21/2018 (2002) [email or web address] Orig Print D/T: S : 09/21/2018 (2005) PAGE 2 Signed ReportUA RFLX MICR CULT IF [id number] 19:45:00 Test Item Value Reference Range Comments UA COLOR (test code=COLU) YELLOW discript YEL/STRAW UA APPEARANCE (test code=APPU) CLEAR discript CLEAR UA GLUCOSE DIPSTICK (test code=DGLUU) NEGATIVE mg/dL NEG UA BILIRUBIN DIPSTICK (test code=BILU) NEGATIVE mg/dL NEG UA KETONE DIPSTICK (test code=KETU) 1+ mg/dL NEG UA SPECIFIC GRAVITY (test code=SGU) 1.020 SG 1.005-1.030 UA BLOOD DIPSTICK (test code=DYLAN) NEGATIVE mg/DL NEG UA PH DIPSTICK (test code=TAVIA) 6.0 pH UNITS 5.0-7.0 UA PROTEIN DIPSTICK (test code=PROU) TRACE mg/dL NEG UA UROBILINIOGEN DIPSTICK (test 0.2 mg/dL <2.0 code=URO) UA NITRITE DIPSTICK (test code=ZACHARIAH) NEGATIVE SCREEN NEG UA LEUKOCYTE ESTERASE DIPSTICK (test NEGATIVE Leuk/mcL NEGATIVE code=LEUU) UA WBC (test code=WBCU) 1-3 #WBC/HPF 0-3 UA RBC (test code=RBCU) 1-3 #RBC/HPF 0-3 UA BACTERIA (test code=BACU) NONE SEEN /HPF NONE-TRACE UA SQUAMOUS CELLS (test code=SQU) NONE SEEN /HPF NONE UA CULTURE NEEDED? (test code=UACULT) NO, WBC<10 Criteria Culture CHK SOURCE OF URINE: CLEAN CATCHIndication for culture: Suprapubic PainUA RFLX MICR CULT IF [id number] 19:37:00 Test Item Value Reference Range Comments UA COLOR (test code=COLU) YELLOW discript YEL/STRAW UA APPEARANCE (test code=APPU) CLEAR discript CLEAR UA GLUCOSE DIPSTICK (test code=DGLUU) NEGATIVE mg/dL NEG UA BILIRUBIN DIPSTICK (test code=BILU) NEGATIVE mg/dL NEG UA KETONE DIPSTICK (test code=KETU) 1+ mg/dL NEG UA SPECIFIC GRAVITY (test code=SGU) 1.020 SG 1.005-1.030 UA BLOOD DIPSTICK (test code=DYLAN) NEGATIVE mg/DL NEG UA PH DIPSTICK (test code=TAVIA) 6.0 pH UNITS 5.0-7.0 UA PROTEIN DIPSTICK (test code=PROU) TRACE mg/dL NEG UA UROBILINIOGEN DIPSTICK (test code=URO) 0.2 mg/dL <2.0 UA NITRITE DIPSTICK (test code=ZACHARIAH) NEGATIVE SCREEN NEG UA LEUKOCYTE ESTERASE DIPSTICK (test NEGATIVE Leuk/mcL NEGATIVE code=LEUU) UA CULTURE NEEDED? (test code=UACULT) Criteria Culture CHK SOURCE OF URINE: CLEAN CATCHIndication for culture: Suprapubic PainLACTIC ACID [id number] 19:14:00 Test Item Value Reference Range Comments LACTIC ACID POC (test code=LACTP) 0.57 MMOL/L 0.90-1.70 BASIC METABOLIC [id number] 18:25:00 Test Item Value Reference Range Comments SODIUM (test code=NA) 140 mmol/L 134-147 POTASSIUM (test code=K) 4.0 mmol/L 3.4-5.0 CHLORIDE (test code=CL) 106 mmol/L 100-108 CARBON DIOXIDE (test code=CO2) 24 mmol/L 21-32 ANION GAP (test code=GAP) 10.0 GAP calc 4.0-15.0 GLUCOSE (test code=GLU) 99 MG/DL 70-110 BLOOD UREA NITROGEN (test code=BUN) 8 MG/DL 7-18 GLOMERULAR FILTRATION RATE (test >=60 max estimate estGFR >60 code=GFR) CREATININE (test code=CREAT) 0.6 MG/DL 0.8-1.3 CALCIUM (test code=CA) 8.6 MG/DL 8.5-10.1 HEPATIC FUNCTION [id number] 18:25:00 Test Item Value Reference Range Comments TOTAL PROTEIN (test code=PROT) 7.1 G/DL 6.4-8.2 ALBUMIN (test code=ALB) 2.4 G/DL 3.4-5.0 BILIRUBIN TOTAL (test code=BILT) 0.60 MG/DL 0.2-1.2 BILIRUBIN DIRECT (test code=BILD) 0.20 MG/DL 0.00-0.30 BILIRUBIN INDIRECT (test code=BILIND) 0.40 MG/DL 0.2-1.2 SGOT/AST (test code=AST) 20 Unit/L 15-37 SGPT/ALT (test code=ALT) 13 Unit/L 12-78 ALKALINE PHOSPHATASE TOTAL (test code=ALKP) 160 Unit/L 50-136 [id number] 18:25:00 Test Item Value Reference Range Comments LIPASE (test code=LIP) 164 Unit/L 114-286 BASIC METABOLIC [id number] 18:22:00 Test Item Value Reference Range Comments SODIUM (test code=NA) 140 mmol/L 134-147 POTASSIUM (test code=K) 4.0 mmol/L 3.4-5.0 CHLORIDE (test code=CL) 106 mmol/L 100-108 CARBON DIOXIDE (test code=CO2) 24 mmol/L 21-32 ANION GAP (test code=GAP) 10.0 GAP calc 4.0-15.0 GLUCOSE (test code=GLU) 99 MG/DL 70-110 BLOOD UREA NITROGEN (test code=BUN) 8 MG/DL 7-18 GLOMERULAR FILTRATION RATE (test >=60 max estimate estGFR >60 code=GFR) CREATININE (test code=CREAT) 0.6 MG/DL 0.8-1.3 CALCIUM (test code=CA) 8.6 MG/DL 8.5-10.1 HEPATIC FUNCTION [id number] 18:22:00 Test Item Value Reference Range Comments TOTAL PROTEIN (test code=PROT) G/DL 6.4-8.2 ALBUMIN (test code=ALB) 2.4 G/DL 3.4-5.0 BILIRUBIN TOTAL (test code=BILT) MG/DL 0.2-1.2 BILIRUBIN DIRECT (test code=BILD) 0.20 MG/DL 0.00-0.30 BILIRUBIN INDIRECT (test code=BILIND) MG/DL 0.2-1.2 SGOT/AST (test code=AST) 20 Unit/L 15-37 SGPT/ALT (test code=ALT) 13 Unit/L 12-78 ALKALINE PHOSPHATASE TOTAL (test code=ALKP) Unit/L 50-136 [id number] 18:22:00 Test Item Value Reference Range Comments LIPASE (test code=LIP) 164 Unit/L 114-286 PROTHROMBIN [id number] 18:17:00 Test Item Value Reference Range Comments PT PATIENT (test code=PTP) 15.7 SECONDS 9.3-12.9 INTERNATIONAL NORMAL RATIO (test code=INR) 1.36 INR Unit 0.8-1.2 THROMBOPLASTIN TIME [id number] 18:17:00 Test Item Value Reference Range Comments THROMBOPLASTIN TIME PARTIAL (test code=PTT) 39.7 SECONDS 26-35 CBC W/O [id number] 18:08:00 Test Item Value Reference Range Comments WHITE BLOOD CELL (test code=WBC) 8.1 K/mm3 3.5-11.0 RED BLOOD CELL (test code=RBC) 3.64 M/mm3 4.70-6.10 HEMOGLOBIN (test code=HGB) 10.3 G/DL 12.3-15.9 HEMATOCRIT (test code=HCT) 33.5 % 35.8-46.7 MEAN CELL VOLUME (test code=MCV) 92.0 Fl 86.3-98.9 MEAN CELL HGB (test code=MCH) 28.3 pg 28.9-34.4 MEAN CELL HGB CONCETRATION (test code=MCHC) 30.7 G/DL 32.1-34.5 RED CELL DISTRIBUTION WIDTH (test code=RDW) 17.7 SD 11.5-14.5 PLATELET COUNT (test code=PLT) 330.0 K/mm3 150-450 MEAN PLATELET VOLUME (test code=MPV) 10.50 fL 7.0-9.6 - CT ABD PELVIS [id number] 19:34:00 Name: FAVIOLA [place] [facility] : 1990 Age/S: 28 / M [address] [facility] Unit #: [id number] Loc: [place] [address] Phys: Pola Brush MD Acct: [id number] Dis Date: Status : REG ER PHONE #: [phone] Exam Date: 09/11/2018 1844 FAX #: Reason: abdominal pain EXAMS: CPT: [id number] CT ABD PELVIS W/CONT 50127 EXAM: CT ABDOMEN AND PELVIS WITH IV CONTRAST DICTATION LOCATION: H48 HISTORY: Male, 28 years of age with abdominal pain TECHNIQUE: Contrast: Nonionic IV contrast was given. No GI contrast was given. Portal venous phase: Abdomen and pelvis Delayed phase: None Reconstructions: Coronal and sagittal One or more of the following dose reduction techniques were used: Automated exposure control; adjustment of the mA and/or kV according to the patient size; and/or use of iterative reconstruction technique. COMPARISON: None at this time. FINDINGS: Statements: Exam quality is acceptable. Lower thorax: Small left pleural effusion and left basilar atelectasis are noted. Hepatobiliary: Liver is diffusely fatty infiltrated. No hepatic mass or enlargement. The gallbladder is normal. No biliary dilation. Pancreas: The pancreas is enlarged and surrounded by mild phlegmonous fluid and inflammatory stranding consistent with pancreatitis, probably subacute. No pancreatic calcifications. No significant pancreatic ductal dilatation. The patient has a double-J stent between the stomach and a small 2 cm in diameter fluid collection adjacent to pancreatic tail consistent with pseudocyst with cyst-gastrostomy. No other well-defined drainable pseudocysts are identified. Spleen: The spleen is overall normal in size without focal mass. 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 There are numerous collateral vessels in the splenic hilum. No splenic infarcts are seen. Adrenals: Normal. Genitourinary: No solid renal mass, significant cortical thinning, obvious renal stone or hydronephrosis. Ureters are unremarkable. Urinary bladder is unremarkable. The visualized reproductive organs PAGE 1 Signed Report (CONTINUED) Name: FAVIOLA [place] : 1990 Age /S: 28 / M [address] [facility] Unit #: [id number] Loc: [place] [address] Phys: Pola Brush MD Acct: [id number] Dis Date: Status: REG ER PHONE #: [phone] Exam Date: 09/11/2018 2802 FAX #: Reason: abdominal pain EXAMS: CPT: [id number] CT ABD PELVIS W/CONT 66658 <Continued> are unremarkable. Gastrointestinal: No bowel obstruction or perienteric inflammation. The appendix is normal. Vascular: No aortic aneurysm or dissection. Lymphatics: No enlarged lymph nodes by CT size criteria. Bones/Soft Tissues: No acute osseous findings. No ventral hernias. Peritoneum/Other: No free intraperitoneal air. Small amount of free fluid seen in the pelvic cul-de-sac. IMPRESSION: 1. Findings of subacute pancreatitis with double-J stent cyst- gastrostomy draining a small 2 cm pseudocyst posterior to the pancreatic tail. No other well-defined drainable pancreatic pseudocysts are identified. 2. 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 No splenic infarction. 3. Small amount of free fluid in pelvic cul-de-sac, nonspecific. 4. Left pleural effusion and left basilar atelectasis. 5. Fatty liver. at 1934 Reported and signed by: Yvonne Weber MD CC: Pola Brush MD Technologist:C[place] Carmona, RT(R)(CT) CTDI: DLP: Trnscb Date/Time: 09/11/2018 (1933) [email or web address] Orig Print D/T: S: 09/11/2018 (1936) PAGE 2 Signed ReportUA RFLX MICR CULT IF [id number] 19:30:00 Test Item Value Reference Range Comments UA COLOR (test code=COLU) YELLOW discript YEL/STRAW UA APPEARANCE (test code=APPU) CLEAR discript CLEAR UA GLUCOSE DIPSTICK (test code=DGLUU) NEGATIVE mg/dL NEG UA BILIRUBIN DIPSTICK (test code=BILU) NEGATIVE mg/dL NEG UA KETONE DIPSTICK (test code=KETU) NEGATIVE mg/dL NEG UA SPECIFIC GRAVITY (test code=SGU) <=1.005 SG 1.005-1.030 UA BLOOD DIPSTICK (test code=DYLAN) NEGATIVE mg/DL NEG UA PH DIPSTICK (test code=TAVIA) 6.5 pH UNITS 5.0-7.0 UA PROTEIN DIPSTICK (test code=PROU) NEGATIVE mg/dL NEG UA UROBILINIOGEN DIPSTICK (test code=URO) 0.2 mg/dL <2.0 UA NITRITE DIPSTICK (test code=ZACHARIAH) NEGATIVE SCREEN NEG UA LEUKOCYTE ESTERASE DIPSTICK (test NEGATIVE Leuk/mcL NEGATIVE code=LEUU) UA CULTURE NEEDED? (test code=UACULT) Criteria Culture CHK SOURCE OF URINE: CLEAN CATCHIndication for culture: Dysuria/FrequencyUA RFLX MICR CULT IF [id number] 19:30:00 Test Item Value Reference Range Comments UA COLOR (test code=COLU) YELLOW discript YEL/STRAW UA APPEARANCE (test code=APPU) CLEAR discript CLEAR UA GLUCOSE DIPSTICK (test code=DGLUU) NEGATIVE mg/dL NEG UA BILIRUBIN DIPSTICK (test code=BILU) NEGATIVE mg/dL NEG UA KETONE DIPSTICK (test code=KETU) NEGATIVE mg/dL NEG UA SPECIFIC GRAVITY (test code=SGU) <=1.005 SG 1.005-1.030 UA BLOOD DIPSTICK (test code=DYLAN) NEGATIVE mg/DL NEG UA PH DIPSTICK (test code=TAVIA) 6.5 pH UNITS 5.0-7.0 UA PROTEIN DIPSTICK (test code=PROU) NEGATIVE mg/dL NEG UA UROBILINIOGEN DIPSTICK (test 0.2 mg/dL <2.0 code=URO) UA NITRITE DIPSTICK (test code=ZACHARIAH) NEGATIVE SCREEN NEG UA LEUKOCYTE ESTERASE DIPSTICK (test NEGATIVE Leuk/mcL NEGATIVE code=LEUU) UA CULTURE NEEDED? (test code=UACULT) NO, WBC<10 Criteria Culture CHK SOURCE OF URINE: CLEAN CATCHIndication for culture: Dysuria/FrequencyBASIC METABOLIC [id number] 18:14:00 Test Item Value Reference Range Comments SODIUM (test code=NA) 139 mmol/L 134-147 POTASSIUM (test code=K) 3.9 mmol/L 3.4-5.0 CHLORIDE (test code=CL) 103 mmol/L 100-108 CARBON DIOXIDE (test code=CO2) 27 mmol/L 21-32 ANION GAP (test code=GAP) 9.0 GAP calc 4.0-15.0 GLUCOSE (test code=GLU) 91 MG/DL 70-110 BLOOD UREA NITROGEN (test code=BUN) 6 MG/DL 7-18 GLOMERULAR FILTRATION RATE (test >=60 max estimate estGFR >60 code=GFR) CREATININE (test code=CREAT) 0.6 MG/DL 0.8-1.3 CALCIUM (test code=CA) 8.4 MG/DL 8.5-10.1 HEPATIC FUNCTION [id number] 18:14:00 Test Item Value Reference Range Comments TOTAL PROTEIN (test code=PROT) 7.6 G/DL 6.4-8.2 ALBUMIN (test code=ALB) 2.3 G/DL 3.4-5.0 BILIRUBIN TOTAL (test code=BILT) 0.30 MG/DL 0.2-1.2 BILIRUBIN DIRECT (test code=BILD) 0.20 MG/DL 0.00-0.30 BILIRUBIN INDIRECT (test code=BILIND) 0.10 MG/DL 0.2-1.2 SGOT/AST (test code=AST) 19 Unit/L 15-37 SGPT/ALT (test code=ALT) 11 Unit/L 12-78 ALKALINE PHOSPHATASE TOTAL (test code=ALKP) 168 Unit/L 50-136 [id number] 18:14:00 Test Item Value Reference Range Comments LIPASE (test code=LIP) 260 Unit/L 114-286 BASIC METABOLIC [id number] 18:06:00 Test Item Value Reference Range Comments SODIUM (test code=NA) 139 mmol/L 134-147 POTASSIUM (test code=K) 3.9 mmol/L 3.4-5.0 CHLORIDE (test code=CL) 103 mmol/L 100-108 CARBON DIOXIDE (test code=CO2) 27 mmol/L 21-32 ANION GAP (test code=GAP) 9.0 GAP calc 4.0-15.0 GLUCOSE (test code=GLU) 91 MG/DL 70-110 BLOOD UREA NITROGEN (test code=BUN) 6 MG/DL 7-18 GLOMERULAR FILTRATION RATE (test code=GFR) estGFR >60 CREATININE (test code=CREAT) MG/DL 0.8-1.3 CALCIUM (test code=CA) 8.4 MG/DL 8.5-10.1 HEPATIC FUNCTION [id number] 18:06:00 Test Item Value Reference Range Comments TOTAL PROTEIN (test code=PROT) G/DL 6.4-8.2 ALBUMIN (test code=ALB) G/DL 3.4-5.0 BILIRUBIN TOTAL (test code=BILT) MG/DL 0.2-1.2 BILIRUBIN DIRECT (test code=BILD) MG/DL 0.00-0.30 BILIRUBIN INDIRECT (test code=BILIND) MG/DL 0.2-1.2 SGOT/AST (test code=AST) Unit/L 15-37 SGPT/ALT (test code=ALT) Unit/L 12-78 ALKALINE PHOSPHATASE TOTAL (test code=ALKP) Unit/L 50-136 [id number] 18:06:00 Test Item Value Reference Range Comments LIPASE (test code=LIP) Unit/L 114-286 CBC W/AUTO [id number] 18:02:00 Test Item Value Reference Range Comments WHITE BLOOD CELL (test code=WBC) 8.2 K/mm3 3.5-11.0 RED BLOOD CELL (test code=RBC) 3.42 M/mm3 4.70-6.10 HEMOGLOBIN (test code=HGB) 9.8 G/DL 12.3-15.9 HEMATOCRIT (test code=HCT) 31.9 % 35.8-46.7 MEAN CELL VOLUME (test code=MCV) 93.3 Fl 86.3-98.9 MEAN CELL HGB (test code=MCH) 28.7 pg 28.9-34.4 MEAN CELL HGB CONCETRATION (test code=MCHC) 30.7 G/DL 32.1-34.5 RED CELL DISTRIBUTION WIDTH (test code=RDW) 17.3 SD 11.5-14.5 PLATELET COUNT (test code=PLT) 356.0 K/mm3 150-450 MEAN PLATELET VOLUME (test code=MPV) 9.50 fL 7.0-9.6 NEUTROPHIL % (test code=NT%) 71.5 % 40-76 LYMPHOCYTE % (test code=LY%) 16.7 % 20.5-51.1 MONOCYTE % (test code=MO%) 9.3 % 1.7-9.3 EOSINOPHIL % (test code=EO%) 2.3 % 0.0-6.0 BASOPHIL % (test code=BA%) 0.2 % 0.0-2.0 NEUTROPHIL # (test code=NT#) 5.86 K/mm3 1.8-7.6 LYMPHOCYTE # (test code=LY#) 1.4 K/mm3 0.6-3.0 MONOCYTE # (test code=MO#) 0.8 K/mm3 0.2-1.5 EOSINOPHIL # (test code=EO#) 0.2 K/mm3 0.0-0.4 BASOPHIL # (test code=BA#) 0.0 K/mm3 0.0-0.2 MANUAL DIFF REQUIRED (test code=MDIFF) NO DIFF/SCN CRITERIA PROTHROMBIN [id number] 18:02:00 Test Item Value Reference Range Comments PT PATIENT (test code=PTP) 16.2 SECONDS 9.3-12.9 INTERNATIONAL NORMAL RATIO (test code=INR) 1.40 INR Unit 0.8-1.2 THROMBOPLASTIN TIME [id number] 18:02:00 Test Item Value Reference Range Comments THROMBOPLASTIN TIME PARTIAL (test code=PTT) 30.7 SECONDS 26-35 BLOOD [id number] 02:01:00 Test Item Value Reference Range Comments CULTURE (BEAKER) (test ymvg=4959) No growth in 5 days BLOOD [id number] 20:01:00 Test Item Value Reference Range Comments CULTURE (BEAKER) (test wuph=3802) No growth in 5 days CBC W/PLT COUNT & AUTO [id number] 05:36:00 Test Item Value Reference Range Comments WHITE BLOOD CELL COUNT (BEAKER) (test gilg=598) 6.7 K/ L 3.5-10.5 RED BLOOD CELL COUNT (BEAKER) (test tcff=876) 2.63 M/ L 4.63-6.08 HEMOGLOBIN (BEAKER) (test vpti=617) 7.6 GM/DL 13.7-17.5 HEMATOCRIT (BEAKER) (test rhyy=877) 24.6 % 40.1-51.0 MEAN CORPUSCULAR VOLUME (BEAKER) (test dond=836) 93.5 fL 79.0-92.2 MEAN CORPUSCULAR HEMOGLOBIN (BEAKER) (test 28.9 pg 25.7-32.2 yvsw=499) MEAN CORPUSCULAR HEMOGLOBIN CONC (BEAKER) (test 30.9 GM/DL 32.3-36.5 ueqd=630) RED CELL DISTRIBUTION WIDTH (BEAKER) (test 17.2 % 11.6-14.4 qzmj=639) PLATELET COUNT (BEAKER) (test hopt=461) 257 K/CU MM 150-450 MEAN PLATELET VOLUME (BEAKER) (test qqdc=117) 10.4 fL 9.4-12.4 NUCLEATED RED BLOOD CELLS (BEAKER) (test 0 /100 WBC 0-0 comi=448) NEUTROPHILS RELATIVE PERCENT (BEAKER) (test 71 % myao=183) LYMPHOCYTES RELATIVE PERCENT (BEAKER) (test 16 % tsni=117) MONOCYTES RELATIVE PERCENT (BEAKER) (test 9 % nkmd=373) EOSINOPHILS RELATIVE PERCENT (BEAKER) (test 2 % wbqr=288) BASOPHILS RELATIVE PERCENT (BEAKER) (test 0 % mlcc=485) NEUTROPHILS ABSOLUTE COUNT (BEAKER) (test 4.75 K/ L 1.78-5.38 ffro=813) LYMPHOCYTES ABSOLUTE COUNT (BEAKER) (test 1.10 K/ L 1.32-3.57 kakv=789) MONOCYTES ABSOLUTE COUNT (BEAKER) (test 0.63 K/ L 0.30-0.82 spys=567) EOSINOPHILS ABSOLUTE COUNT (BEAKER) (test 0.16 K/ L 0.04-0.54 saqb=878) BASOPHILS ABSOLUTE COUNT (BEAKER) (test 0.03 K/ L 0.01-0.08 dddv=754) IMMATURE GRANULOCYTES-RELATIVE PERCENT (BEAKER) 0 % 0-1 (test mumb=6431) TISSUE [id number] 15:04:00Surgical Pathology Report Case: [id number] Authorizing Provider: Maliha Gotti MD Collected: 08/29/2018 0932 Ordering Location: [place] [address] ICU Received: 08/29/2018 1318 Pathologist: James Stringer MD Specimen: Polyp, Colon - Transverse, taken by yahaira MCNEAL A TRANSVERSE COLON BIOPSY FOR SUSPECTED POLYP:INFLAMMATORY PSEUDOPOLYP. Signing Pathologist Direct Phone Line: [phone] signed by James Stringer MD on at 3:04 PMImmunostains for CMV, HSV1, and HSV2 performed on block A1 are negative.[id number], [id number], [id number] and postop diagnosis: gastrointestinal hemorrhage, unspecified gastrointestinal hemorrhage type Polyp, colon - transverse Received in formalin labeled with the patient's name, accession number and "polyp, colon - transverse" is a 0.2 cm york soft tissue fragment which is submitted in toto in A1. CG/pl PERFORMED. The interpretation of this case included the use of immunohistochemistry or special stains.BLOCK A1- CMV, HSV1, [id number] Slides Examined: In-house known positive controls were evaluated along withthe test tissue. These control slides run alongside of the patients sample show appropriate staining. Internal positive and negative controls when available are evaluated Immunohistochemistry technical testing was performed at [facility] Pathology Laboratory where it was developed and its performance characteristics were determined. It has not been cleared or approved by the U.S. Food and Drug Administration. The FDA has determined that such clearance or approval is not necessary. The test is used for clinical purposes. It should not be regarded as investigational or for research. This laboratory is certified under the Clinical Laboratory Improvement Amendments of 1988 (CLIA-88) as qualified to perform high complexity clinical laboratory testing.HEMOGLOBIN AND [id number] 12:44 :00 Test Item Value Reference Range Comments HEMOGLOBIN (BEAKER) (test zhrj=942) 7.7 GM/DL 13.7-17.5 HEMATOCRIT (BEAKER) (test esuy=506) 25.1 % 40.1-51.0 BASIC METABOLIC [id number] 07:28:00 Test Item Value Reference Range Comments SODIUM (BEAKER) (test 136 meq/L 136-145 gaap=343) POTASSIUM (BEAKER) (test 3.5 meq/L 3.5-5.1 nagz=509) CHLORIDE (BEAKER) (test 106 meq/L 98-107 vpwh=673) CO2 (BEAKER) (test 25 meq/L 22-29 oiyn=485) BLOOD UREA NITROGEN 4 mg/dL 7-21 (BEAKER) (test jsik=504) CREATININE (BEAKER) (test 0.57 mg/dL 0.57-1.25 xugz=393) GLUCOSE RANDOM (BEAKER) 84 mg/dL 70-105 (test mndh=469) CALCIUM (BEAKER) (test 7.9 mg/dL 8.4-10.2 yhce=135) EGFR (BEAKER) (test 169 mL/min/1.73 sq m ESTIMATED GFR IS NOT cskp=9991) ACCURATE CREATININE CLEARANCE IN PREDICTING GLOMERULAR FILTRATION RATE. ESTIMATED GFR IS NOT APPLICABLE FOR DIALYSIS PATIENTS. [id number] 07:13:00 Test Item Value Reference Range Comments PHOSPHORUS (BEAKER) (test lfcf=203) 3.7 mg/dL 2.3-4.7 [id number] 07:13:00 Test Item Value Reference Range Comments MAGNESIUM (BEAKER) (test vfkd=855) 2.0 mg/dL 1.6-2.6 HEPATIC FUNCTION [id number] 07:13:00 Test Item Value Reference Range Comments TOTAL PROTEIN (BEAKER) (test ukyb=077) 5.4 gm/dL 6.0-8.3 ALBUMIN (BEAKER) (test erod=5998) 2.4 g/dL 3.5-5.0 BILIRUBIN TOTAL (BEAKER) (test apnf=223) 0.3 mg/dL 0.2-1.2 BILIRUBIN DIRECT (BEAKER) (test aumb=955) 0.2 mg/dL 0.1-0.5 ALKALINE PHOSPHATASE (BEAKER) (test yndh=884) 82 U/L 40-150 AST (SGOT) (BEAKER) (test rlkp=539) 14 U/L 5-34 ALT (SGPT) (BEAKER) (test hhhp=809) 7 U/L 6-55 CBC W/PLT COUNT & AUTO [id number] 05:45:00 Test Item Value Reference Range Comments WHITE BLOOD CELL COUNT (BEAKER) (test mklx=479) 5.5 K/ L 3.5-10.5 RED BLOOD CELL COUNT (BEAKER) (test dtsj=225) 2.50 M/ L 4.63-6.08 HEMOGLOBIN (BEAKER) (test lnfc=026) 7.2 GM/DL 13.7-17.5 HEMATOCRIT (BEAKER) (test uagy=028) 22.9 % 40.1-51.0 MEAN CORPUSCULAR VOLUME (BEAKER) (test wxtc=745) 91.6 fL 79.0-92.2 MEAN CORPUSCULAR HEMOGLOBIN (BEAKER) (test 28.8 pg 25.7-32.2 mwbn=986) MEAN CORPUSCULAR HEMOGLOBIN CONC (BEAKER) (test 31.4 GM/DL 32.3-36.5 evyp=009) RED CELL DISTRIBUTION WIDTH (BEAKER) (test 16.7 % 11.6-14.4 ivnr=784) PLATELET COUNT (BEAKER) (test lnaz=291) 249 K/CU MM 150-450 MEAN PLATELET VOLUME (BEAKER) (test wblb=843) 10.2 fL 9.4-12.4 NUCLEATED RED BLOOD CELLS (BEAKER) (test 0 /100 WBC 0-0 qpgm=480) NEUTROPHILS RELATIVE PERCENT (BEAKER) (test 66 % qusk=200) LYMPHOCYTES RELATIVE PERCENT (BEAKER) (test 22 % ufvm=996) MONOCYTES RELATIVE PERCENT (BEAKER) (test 8 % juoy=930) EOSINOPHILS RELATIVE PERCENT (BEAKER) (test 2 % erok=840) BASOPHILS RELATIVE PERCENT (BEAKER) (test 1 % htyq=778) NEUTROPHILS ABSOLUTE COUNT (BEAKER) (test 3.65 K/ L 1.78-5.38 iqhe=182) LYMPHOCYTES ABSOLUTE COUNT (BEAKER) (test 1.23 K/ L 1.32-3.57 itus=614) MONOCYTES ABSOLUTE COUNT (BEAKER) (test 0.45 K/ L 0.30-0.82 qoxe=528) EOSINOPHILS ABSOLUTE COUNT (BEAKER) (test 0.13 K/ L 0.04-0.54 qtgq=276) BASOPHILS ABSOLUTE COUNT (BEAKER) (test 0.04 K/ L 0.01-0.08 nzhc=508) IMMATURE GRANULOCYTES-RELATIVE PERCENT (BEAKER) 1 % 0-1 (test jqdu=3523) [id number] 06:28:00 Test Item Value Reference Range Comments PHOSPHORUS (BEAKER) (test yxfv=614) 4.0 mg/dL 2.3-4.7 [id number] 06:28:00 Test Item Value Reference Range Comments MAGNESIUM (BEAKER) (test uqeh=795) 1.9 mg/dL 1.6-2.6 HEPATIC FUNCTION [id number] 06:28:00 Test Item Value Reference Range Comments TOTAL PROTEIN (BEAKER) (test eatv=302) 5.2 gm/dL 6.0-8.3 ALBUMIN (BEAKER) (test pite=4124) 2.4 g/dL 3.5-5.0 BILIRUBIN TOTAL (BEAKER) (test njpv=196) 0.4 mg/dL 0.2-1.2 BILIRUBIN DIRECT (BEAKER) (test odsg=912) 0.3 mg/dL 0.1-0.5 ALKALINE PHOSPHATASE (BEAKER) (test rahq=801) 82 U/L 40-150 AST (SGOT) (BEAKER) (test quwf=039) 20 U/L 5-34 ALT (SGPT) (BEAKER) (test ekix=342) 7 U/L 6-55 BASIC METABOLIC [id number] 06:28:00 Test Item Value Reference Range Comments SODIUM (BEAKER) (test 141 meq/L 136-145 bvng=074) POTASSIUM (BEAKER) (test 3.7 meq/L 3.5-5.1 jhwc=706) CHLORIDE (BEAKER) (test 110 meq/L 98-107 cnuz=407) CO2 (BEAKER) (test 24 meq/L 22-29 mkrh=772) BLOOD UREA NITROGEN 4 mg/dL 7-21 (BEAKER) (test pwkc=872) CREATININE (BEAKER) (test 0.56 mg/dL 0.57-1.25 etml=922) GLUCOSE RANDOM (BEAKER) 86 mg/dL 70-105 (test mvjm=728) CALCIUM (BEAKER) (test 7.8 mg/dL 8.4-10.2 rjcx=097) EGFR (BEAKER) (test 172 mL/min/1.73 sq m ESTIMATED GFR IS NOT tsze=5343) ACCURATE CREATININE CLEARANCE IN PREDICTING GLOMERULAR FILTRATION RATE. ESTIMATED GFR IS NOT APPLICABLE FOR DIALYSIS PATIENTS. CBC W/PLT COUNT & AUTO [id number] 05:15:00 Test Item Value Reference Range Comments WHITE BLOOD CELL COUNT (BEAKER) (test spxk=915) 5.6 K/ L 3.5-10.5 RED BLOOD CELL COUNT (BEAKER) (test ahnu=203) 2.67 M/ L 4.63-6.08 HEMOGLOBIN (BEAKER) (test hkyq=828) 7.6 GM/DL 13.7-17.5 HEMATOCRIT (BEAKER) (test rise=789) 24.1 % 40.1-51.0 MEAN CORPUSCULAR VOLUME (BEAKER) (test fzzg=273) 90.3 fL 79.0-92.2 MEAN CORPUSCULAR HEMOGLOBIN (BEAKER) (test 28.5 pg 25.7-32.2 pouo=430) MEAN CORPUSCULAR HEMOGLOBIN CONC (BEAKER) (test 31.5 GM/DL 32.3-36.5 mnbk=413) RED CELL DISTRIBUTION WIDTH (BEAKER) (test 15.8 % 11.6-14.4 phly=813) PLATELET COUNT (BEAKER) (test qcvh=597) 233 K/CU MM 150-450 MEAN PLATELET VOLUME (BEAKER) (test twob=635) 10.0 fL 9.4-12.4 NUCLEATED RED BLOOD CELLS (BEAKER) (test 0 /100 WBC 0-0 dcxm=588) NEUTROPHILS RELATIVE PERCENT (BEAKER) (test 67 % czci=338) LYMPHOCYTES RELATIVE PERCENT (BEAKER) (test 22 % dkoz=114) MONOCYTES RELATIVE PERCENT (BEAKER) (test 8 % ajmw=886) EOSINOPHILS RELATIVE PERCENT (BEAKER) (test 2 % xrsy=291) BASOPHILS RELATIVE PERCENT (BEAKER) (test 1 % zuys=561) NEUTROPHILS ABSOLUTE COUNT (BEAKER) (test 3.78 K/ L 1.78-5.38 gyyf=617) LYMPHOCYTES ABSOLUTE COUNT (BEAKER) (test 1.25 K/ L 1.32-3.57 wrkk=332) MONOCYTES ABSOLUTE COUNT (BEAKER) (test 0.46 K/ L 0.30-0.82 nvby=101) EOSINOPHILS ABSOLUTE COUNT (BEAKER) (test 0.09 K/ L 0.04-0.54 jrkh=854) BASOPHILS ABSOLUTE COUNT (BEAKER) (test 0.03 K/ L 0.01-0.08 ewox=198) IMMATURE GRANULOCYTES-RELATIVE PERCENT (BEAKER) 0 % 0-1 (test drrl=2224) HEMOGLOBIN AND [id number] 16:50:00 Test Item Value Reference Range Comments HEMOGLOBIN (BEAKER) (test ckjt=679) 7.8 GM/DL 13.7-17.5 HEMATOCRIT (BEAKER) (test vxro=022) 24.5 % 40.1-51.0 TROPONIN [id number] 07:07:00 Test Item Value Reference Range Comments TROPONIN I (BEAKER) (test pdda=702) < ng/mL 0.00-0.03 Troponin I (TnI) levels [...] failure, acidosis, acute neurological disease, and persistent tachyarrhythmia.[id number] 07:04:00 Test Item Value Reference Range Comments PHOSPHORUS (BEAKER) (test juig=621) 3.0 mg/dL 2.3-4.7 [id number] 07:04:00 Test Item Value Reference Range Comments MAGNESIUM (BEAKER) (test qaxs=758) 1.7 mg/dL 1.6-2.6 BASIC METABOLIC [id number] 07:04:00 Test Item Value Reference Range Comments SODIUM (BEAKER) (test 139 meq/L 136-145 lmth=946) POTASSIUM (BEAKER) (test 4.2 meq/L 3.5-5.1 bhov=190) CHLORIDE (BEAKER) (test 111 meq/L 98-107 pbck=943) CO2 (BEAKER) (test 22 meq/L 22-29 gbdt=484) BLOOD UREA NITROGEN 7 mg/dL 7-21 (BEAKER) (test posn=462) CREATININE (BEAKER) (test 0.58 mg/dL 0.57-1.25 yszl=437) GLUCOSE RANDOM (BEAKER) 79 mg/dL 70-105 (test vdcn=046) CALCIUM (BEAKER) (test 8.0 mg/dL 8.4-10.2 assi=180) EGFR (BEAKER) (test 166 mL/min/1.73 sq m ESTIMATED GFR IS NOT tnua=6276) ACCURATE CREATININE CLEARANCE IN PREDICTING GLOMERULAR FILTRATION RATE. ESTIMATED GFR IS NOT APPLICABLE FOR DIALYSIS PATIENTS. LACTIC ACID, [id number] 06:58:00 Test Item Value Reference Range Comments LACTATE BLOOD VENOUS (2) (BEAKER) (test 0.7 mmol/L 0.5-2.2 yviw=3953) HEMOGLOBIN AND [id number] 06:44:00 Test Item Value Reference Range Comments HEMOGLOBIN (BEAKER) (test rlal=775) 8.2 GM/DL 13.7-17.5 HEMATOCRIT (BEAKER) (test smuz=049) 25.9 % 40.1-51.0 CBC W/PLT COUNT & AUTO [id number] 06:44:00 Test Item Value Reference Range Comments WHITE BLOOD CELL COUNT (BEAKER) (test qerl=441) 8.0 K/ L 3.5-10.5 RED BLOOD CELL COUNT (BEAKER) (test qxnb=482) 2.87 M/ L 4.63-6.08 HEMOGLOBIN (BEAKER) (test gdal=201) 8.2 GM/DL 13.7-17.5 HEMATOCRIT (BEAKER) (test wjmo=140) 25.9 % 40.1-51.0 MEAN CORPUSCULAR VOLUME (BEAKER) (test qcmg=374) 90.2 fL 79.0-92.2 MEAN CORPUSCULAR HEMOGLOBIN (BEAKER) (test 28.6 pg 25.7-32.2 wdla=583) MEAN CORPUSCULAR HEMOGLOBIN CONC (BEAKER) (test 31.7 GM/DL 32.3-36.5 ylpj=535) RED CELL DISTRIBUTION WIDTH (BEAKER) (test 15.4 % 11.6-14.4 wdkv=665) PLATELET COUNT (BEAKER) (test wdbr=648) 244 K/CU MM 150-450 MEAN PLATELET VOLUME (BEAKER) (test bffb=482) 10.3 fL 9.4-12.4 NUCLEATED RED BLOOD CELLS (BEAKER) (test 0 /100 WBC 0-0 stra=637) NEUTROPHILS RELATIVE PERCENT (BEAKER) (test 66 % ritm=570) LYMPHOCYTES RELATIVE PERCENT (BEAKER) (test 22 % cnbt=173) MONOCYTES RELATIVE PERCENT (BEAKER) (test 9 % ibgh=282) EOSINOPHILS RELATIVE PERCENT (BEAKER) (test 2 % fnld=533) BASOPHILS RELATIVE PERCENT (BEAKER) (test 1 % xaba=669) NEUTROPHILS ABSOLUTE COUNT (BEAKER) (test 5.25 K/ L 1.78-5.38 ibqh=775) LYMPHOCYTES ABSOLUTE COUNT (BEAKER) (test 1.78 K/ L 1.32-3.57 nsxs=842) MONOCYTES ABSOLUTE COUNT (BEAKER) (test 0.73 K/ L 0.30-0.82 qfra=116) EOSINOPHILS ABSOLUTE COUNT (BEAKER) (test 0.16 K/ L 0.04-0.54 djux=155) BASOPHILS ABSOLUTE COUNT (BEAKER) (test 0.04 K/ L 0.01-0.08 uvwl=263) IMMATURE GRANULOCYTES-RELATIVE PERCENT (BEAKER) 1 % 0-1 (test yodw=7314) TROPONIN [id number] 00:41:00 Test Item Value Reference Range Comments TROPONIN I (BEAKER) (test dfnj=799) < ng/mL 0.00-0.03 Troponin I (TnI) levels [...] failure, acidosis, acute neurological disease, and persistent tachyarrhythmia.HEMOGLOBIN AND [id number] 00: 22:00 Test Item Value Reference Range Comments HEMOGLOBIN (BEAKER) (test ajff=695) 5.9 GM/DL 13.7-17.5 HEMATOCRIT (BEAKER) (test znmf=865) 18.8 % 40.1-51.0 RAD, CHEST, 1 VIEW, NON [id number] 21:37:00Reason for exam:->r/o pulm edemaShould this be performed at the bedside?->YesFINAL REPORT AP view of the chest dated 08/27/2018 CLINICAL INFORMATION: r/o pulm edema Comment: Heart is normal in size. Pulmonary vasculature is unremarkable. Subsegmental atelectasis is seen in the left lower lobe. The rest of the lungs are clear. No pulmonary infiltrate or pleural effusion is present. Impression: Left lower lobe subsegmental atelectasis. Signed: Debbie Castillo MDReport Verified Date/Time: 08/27/2018 21:37:05 Reading Location: [address] Consult Reading Room URINALYSIS W/ REFLEX URINE [id number] 20:28:00 Test Item Value Reference Range Comments COLOR (BEAKER) (test wxbj=733) Yellow CLARITY (BEAKER) (test viub=624) Clear SPECIFIC GRAVITY UA (BEAKER) (test vhdx=663) 1.024 1.001-1.035 PH UA (BEAKER) (test pojo=938) 7.5 5.0-8.0 PROTEIN UA (BEAKER) (test cofw=273) 30 mg/dL Negative GLUCOSE UA (BEAKER) (test dzmt=417) Negative Negative KETONES UA (BEAKER) (test igng=905) 40 mg/dL Negative BILIRUBIN UA (BEAKER) (test imjy=922) Negative Negative BLOOD UA (BEAKER) (test yolb=596) Negative Negative NITRITE UA (BEAKER) (test mvft=847) Negative Negative LEUKOCYTE ESTERASE UA (BEAKER) (test trsw=949) Trace Negative UROBILINOGEN UA (BEAKER) (test pzuc=347) 0.2 mg/dL 0.2-1.0 RBC UA (BEAKER) (test oolw=875) 1 /HPF WBC UA (BEAKER) (test xdgh=581) 5 /HPF MUCUS (BEAKER) (test fnpr=4816) Rare SOURCE(BEAKER) (test uqvi=2867) TROPONIN [id number] 19:29:00 Test Item Value Reference Range Comments TROPONIN I (BEAKER) (test qole=112) < ng/mL 0.00-0.03 Troponin I (TnI) levels [...] failure, acidosis, acute neurological disease, and persistent tachyarrhythmia.COMPREHENSIVE METABOLIC [id number] 19:21:00 Test Item Value Reference Range Comments TOTAL PROTEIN (BEAKER) 5.6 gm/dL 6.0-8.3 (test bzwf=020) ALBUMIN (BEAKER) (test 2.4 g/dL 3.5-5.0 kcww=2586) ALKALINE PHOSPHATASE 78 U/L 40-150 (BEAKER) (test kenr=800) BILIRUBIN TOTAL (BEAKER) 1.1 mg/dL 0.2-1.2 (test tyax=848) SODIUM (BEAKER) (test 140 meq/L 136-145 lxnf=039) POTASSIUM (BEAKER) (test 3.8 meq/L 3.5-5.1 rhcm=575) CHLORIDE (BEAKER) (test 107 meq/L 98-107 gdkx=898) CO2 (BEAKER) (test 27 meq/L 22-29 uwhb=810) BLOOD UREA NITROGEN 15 mg/dL 7-21 (BEAKER) (test tcli=068) CREATININE (BEAKER) (test 0.60 mg/dL 0.57-1.25 vrnn=023) GLUCOSE RANDOM (BEAKER) 87 mg/dL 70-105 (test cmeo=275) CALCIUM (BEAKER) (test 7.5 mg/dL 8.4-10.2 ijna=305) AST (SGOT) (BEAKER) (test 10 U/L 5-34 prtj=613) ALT (SGPT) (BEAKER) (test 6 U/L 6-55 bjtf=337) EGFR (BEAKER) (test 159 mL/min/1.73 sq ESTIMATED GFR IS NOT wdcb=4739) m ACCURATE CREATININE CLEARANCE IN PREDICTING GLOMERULAR FILTRATION RATE. ESTIMATED GFR IS NOT APPLICABLE FOR DIALYSIS PATIENTS. [id number] 19:09:00 Test Item Value Reference Range Comments PHOSPHORUS (BEAKER) (test ojvw=205) 3.6 mg/dL 2.3-4.7 [id number] 19:09:00 Test Item Value Reference Range Comments MAGNESIUM (BEAKER) (test osco=940) 1.8 mg/dL 1.6-2.6 LACTIC ACID, [id number] 19:03:00 Test Item Value Reference Range Comments LACTATE BLOOD VENOUS (2) (BEAKER) (test 0.9 mmol/L 0.5-2.2 hbxh=2482) PROTHROMBIN TIME/[id number] 18:53:00 Test Item Value Reference Range Comments PROTIME (BEAKER) (test zjqo=449) 18.1 seconds 11.9-14.2 INR (BEAKER) (test tdxq=320) 1.6 <=5.9 Effective 07/03/2018: PT Reference Range ChangeNew: 11.9-14.2 Previous: 11.7- 14.7RECOMMENDED COUMADIN/WARFARIN INR THERAPY RANGESSTANDARD DOSE: 2.0-3.0 Includes: PROPHYLAXIS for venous thrombosis, systemic embolization; TREATMENT for venous thrombosis and/or pulmonary embolus.HIGH RISK: Target INR is2.5-3.5 for patients wiht mechanical heart valves.[id number] 18:53:00 Test Item Value Reference Range Comments FIBRINOGEN LEVEL (BEAKER) (test rzde=919) 418 mg/dl 225-434 CBC W/PLT COUNT & AUTO [id number] 18:48:00 Test Item Value Reference Range Comments WHITE BLOOD CELL COUNT (BEAKER) (test rxrn=308) 8.9 K/ L 3.5-10.5 RED BLOOD CELL COUNT (BEAKER) (test upap=650) 2.29 M/ L 4.63-6.08 HEMOGLOBIN (BEAKER) (test wutp=272) 6.3 GM/DL 13.7-17.5 HEMATOCRIT (BEAKER) (test nowl=584) 20.6 % 40.1-51.0 MEAN CORPUSCULAR VOLUME (BEAKER) (test tudp=034) 90.0 fL 79.0-92.2 MEAN CORPUSCULAR HEMOGLOBIN (BEAKER) (test 27.5 pg 25.7-32.2 ggbw=653) MEAN CORPUSCULAR HEMOGLOBIN CONC (BEAKER) (test 30.6 GM/DL 32.3-36.5 yxoq=819) RED CELL DISTRIBUTION WIDTH (BEAKER) (test 15.6 % 11.6-14.4 bcug=220) PLATELET COUNT (BEAKER) (test xpyb=941) 283 K/CU MM 150-450 MEAN PLATELET VOLUME (BEAKER) (test fqak=900) 10.6 fL 9.4-12.4 NUCLEATED RED BLOOD CELLS (BEAKER) (test 0 /100 WBC 0-0 svlg=618) NEUTROPHILS RELATIVE PERCENT (BEAKER) (test 69 % bthi=910) LYMPHOCYTES RELATIVE PERCENT (BEAKER) (test 21 % frma=653) MONOCYTES RELATIVE PERCENT (BEAKER) (test 7 % yeqe=671) EOSINOPHILS RELATIVE PERCENT (BEAKER) (test 1 % hyua=392) BASOPHILS RELATIVE PERCENT (BEAKER) (test 0 % svik=329) NEUTROPHILS ABSOLUTE COUNT (BEAKER) (test 6.15 K/ L 1.78-5.38 fjyw=779) LYMPHOCYTES ABSOLUTE COUNT (BEAKER) (test 1.89 K/ L 1.32-3.57 qbuf=735) MONOCYTES ABSOLUTE COUNT (BEAKER) (test 0.65 K/ L 0.30-0.82 fzot=145) EOSINOPHILS ABSOLUTE COUNT (BEAKER) (test 0.12 K/ L 0.04-0.54 tbeb=495) BASOPHILS ABSOLUTE COUNT (BEAKER) (test 0.04 K/ L 0.01-0.08 ywli=029) IMMATURE GRANULOCYTES-RELATIVE PERCENT (BEAKER) 1 % 0-1 (test ueau=3424) HEMOGLOBIN AND [id number] 18:44:00 Test Item Value Reference Range Comments HEMOGLOBIN (BEAKER) (test texp=697) 6.3 GM/DL 13.7-17.5 HEMATOCRIT (BEAKER) (test vnpu=655) 20.6 % 40.1-51.0 CBC W/PLT COUNT & AUTO [id number] 07:00:00 Test Item Value Reference Range Comments WHITE BLOOD CELL COUNT (BEAKER) (test xxtv=712) 7.4 K/ L 3.5-10.5 RED BLOOD CELL COUNT (BEAKER) (test rkcn=873) 3.18 M/ L 4.63-6.08 HEMOGLOBIN (BEAKER) (test cswr=912) 9.0 GM/DL 13.7-17.5 HEMATOCRIT (BEAKER) (test zhkt=057) 28.3 % 40.1-51.0 MEAN CORPUSCULAR VOLUME (BEAKER) (test hlmx=713) 89.0 fL 79.0-92.2 MEAN CORPUSCULAR HEMOGLOBIN (BEAKER) (test 28.3 pg 25.7-32.2 slrv=795) MEAN CORPUSCULAR HEMOGLOBIN CONC (BEAKER) (test 31.8 GM/DL 32.3-36.5 cweu=751) RED CELL DISTRIBUTION WIDTH (BEAKER) (test 15.3 % 11.6-14.4 qvuz=534) PLATELET COUNT (BEAKER) (test zrlv=582) 339 K/CU MM 150-450 MEAN PLATELET VOLUME (BEAKER) (test vudl=541) 10.2 fL 9.4-12.4 NUCLEATED RED BLOOD CELLS (BEAKER) (test 0 /100 WBC 0-0 ejtb=995) NEUTROPHILS RELATIVE PERCENT (BEAKER) (test 67 % ncal=369) LYMPHOCYTES RELATIVE PERCENT (BEAKER) (test 19 % whzc=475) MONOCYTES RELATIVE PERCENT (BEAKER) (test 11 % fkje=029) EOSINOPHILS RELATIVE PERCENT (BEAKER) (test 3 % nukv=319) BASOPHILS RELATIVE PERCENT (BEAKER) (test 0 % leqe=324) NEUTROPHILS ABSOLUTE COUNT (BEAKER) (test 4.94 K/ L 1.78-5.38 ulqm=695) LYMPHOCYTES ABSOLUTE COUNT (BEAKER) (test 1.38 K/ L 1.32-3.57 wsol=897) MONOCYTES ABSOLUTE COUNT (BEAKER) (test 0.82 K/ L 0.30-0.82 skzn=414) EOSINOPHILS ABSOLUTE COUNT (BEAKER) (test 0.20 K/ L 0.04-0.54 xmle=618) BASOPHILS ABSOLUTE COUNT (BEAKER) (test 0.02 K/ L 0.01-0.08 ysid=084) IMMATURE GRANULOCYTES-RELATIVE PERCENT (BEAKER) 1 % 0-1 (test ptuz=1146) CALCIUM, [id number] 06:20:00 Test Item Value Reference Range Comments CALCIUM IONIZED (BEAKER) (test gzgd=330) 1.01 mmol/L 1.12-1.27 PH, BLOOD (BEAKER) (test dhcy=4450) 7.50 COMPREHENSIVE METABOLIC [id number] 06:16:00 Test Item Value Reference Range Comments TOTAL PROTEIN (BEAKER) 5.8 gm/dL 6.0-8.3 (test gnlq=769) ALBUMIN (BEAKER) (test 2.5 g/dL 3.5-5.0 glsn=7925) ALKALINE PHOSPHATASE 56 U/L 40-150 (BEAKER) (test iair=446) BILIRUBIN TOTAL (BEAKER) 0.3 mg/dL 0.2-1.2 (test tnfl=256) SODIUM (BEAKER) (test 138 meq/L 136-145 tgsy=647) POTASSIUM (BEAKER) (test 3.7 meq/L 3.5-5.1 morg=657) CHLORIDE (BEAKER) (test 104 meq/L 98-107 kndh=942) CO2 (BEAKER) (test 25 meq/L 22-29 umum=957) BLOOD UREA NITROGEN 3 mg/dL 7-21 (BEAKER) (test jozx=004) CREATININE (BEAKER) (test 0.56 mg/dL 0.57-1.25 bzmn=722) GLUCOSE RANDOM (BEAKER) 82 mg/dL 70-105 (test hzof=454) CALCIUM (BEAKER) (test 8.1 mg/dL 8.4-10.2 phsj=930) AST (SGOT) (BEAKER) (test 15 U/L 5-34 nmzz=787) ALT (SGPT) (BEAKER) (test 9 U/L 6-55 qbcr=730) EGFR (BEAKER) (test 172 mL/min/1.73 sq ESTIMATED GFR IS NOT aryg=3066) m ACCURATE CREATININE CLEARANCE IN PREDICTING GLOMERULAR FILTRATION RATE. ESTIMATED GFR IS NOT APPLICABLE FOR DIALYSIS PATIENTS. BLOOD [id number] 20:01:00 Test Item Value Reference Range Comments CULTURE (BEAKER) (test ahhe=9225) No growth in 5 days [id number] 06:17:00 Test Item Value Reference Range Comments PHOSPHORUS (BEAKER) (test nqsc=790) 3.5 mg/dL 2.3-4.7 [id number] 06:17:00 Test Item Value Reference Range Comments MAGNESIUM (BEAKER) (test shlw=623) 1.3 mg/dL 1.6-2.6 BASIC METABOLIC [id number] 06:17:00 Test Item Value Reference Range Comments SODIUM (BEAKER) (test 136 meq/L 136-145 owyr=493) POTASSIUM (BEAKER) (test 3.4 meq/L 3.5-5.1 pxah=122) CHLORIDE (BEAKER) (test 104 meq/L 98-107 iwen=822) CO2 (BEAKER) (test 25 meq/L 22-29 qsdt=677) BLOOD UREA NITROGEN 3 mg/dL 7-21 (BEAKER) (test zzcq=043) CREATININE (BEAKER) (test 0.55 mg/dL 0.57-1.25 cohz=794) GLUCOSE RANDOM (BEAKER) 88 mg/dL 70-105 (test sadv=772) CALCIUM (BEAKER) (test 8.1 mg/dL 8.4-10.2 whar=257) EGFR (BEAKER) (test 176 mL/min/1.73 sq m ESTIMATED GFR IS NOT fsuk=8516) ACCURATE CREATININE CLEARANCE IN PREDICTING GLOMERULAR FILTRATION RATE. ESTIMATED GFR IS NOT APPLICABLE FOR DIALYSIS PATIENTS. CALCIUM, [id number] 05:40:00 Test Item Value Reference Range Comments CALCIUM IONIZED (BEAKER) (test hbmp=836) 1.02 mmol/L 1.12-1.27 PH, BLOOD (BEAKER) (test whlv=4451) 7.50 CBC W/PLT COUNT & AUTO [id number] 05:32:00 Test Item Value Reference Range Comments WHITE BLOOD CELL COUNT (BEAKER) (test mwvc=433) 8.9 K/ L 3.5-10.5 RED BLOOD CELL COUNT (BEAKER) (test wnxx=670) 3.07 M/ L 4.63-6.08 HEMOGLOBIN (BEAKER) (test wqpy=634) 8.7 GM/DL 13.7-17.5 HEMATOCRIT (BEAKER) (test zgmt=864) 27.5 % 40.1-51.0 MEAN CORPUSCULAR VOLUME (BEAKER) (test iphr=445) 89.6 fL 79.0-92.2 MEAN CORPUSCULAR HEMOGLOBIN (BEAKER) (test 28.3 pg 25.7-32.2 xgur=906) MEAN CORPUSCULAR HEMOGLOBIN CONC (BEAKER) (test 31.6 GM/DL 32.3-36.5 hxlj=535) RED CELL DISTRIBUTION WIDTH (BEAKER) (test 15.2 % 11.6-14.4 zfrg=576) PLATELET COUNT (BEAKER) (test pfsr=112) 298 K/CU MM 150-450 MEAN PLATELET VOLUME (BEAKER) (test bisu=293) 10.7 fL 9.4-12.4 NUCLEATED RED BLOOD CELLS (BEAKER) (test 0 /100 WBC 0-0 herk=343) NEUTROPHILS RELATIVE PERCENT (BEAKER) (test 75 % qnbh=940) LYMPHOCYTES RELATIVE PERCENT (BEAKER) (test 14 % kggp=774) MONOCYTES RELATIVE PERCENT (BEAKER) (test 9 % vbjz=279) EOSINOPHILS RELATIVE PERCENT (BEAKER) (test 2 % gpfd=970) BASOPHILS RELATIVE PERCENT (BEAKER) (test 0 % jgqd=407) NEUTROPHILS ABSOLUTE COUNT (BEAKER) (test 6.64 K/ L 1.78-5.38 qwtq=949) LYMPHOCYTES ABSOLUTE COUNT (BEAKER) (test 1.23 K/ L 1.32-3.57 htkj=727) MONOCYTES ABSOLUTE COUNT (BEAKER) (test 0.82 K/ L 0.30-0.82 utdv=322) EOSINOPHILS ABSOLUTE COUNT (BEAKER) (test 0.14 K/ L 0.04-0.54 uhcy=018) BASOPHILS ABSOLUTE COUNT (BEAKER) (test 0.02 K/ L 0.01-0.08 lqoh=896) IMMATURE GRANULOCYTES-RELATIVE PERCENT (BEAKER) 1 % 0-1 (test jxkx=2170) COMPREHENSIVE METABOLIC [id number] 07:10:00 Test Item Value Reference Range Comments TOTAL PROTEIN (BEAKER) 5.4 gm/dL 6.0-8.3 (test nabi=138) ALBUMIN (BEAKER) (test 2.4 g/dL 3.5-5.0 btpz=0832) ALKALINE PHOSPHATASE 62 U/L 40-150 (BEAKER) (test eelu=107) BILIRUBIN TOTAL (BEAKER) 0.4 mg/dL 0.2-1.2 (test hihf=456) SODIUM (BEAKER) (test 138 meq/L 136-145 fpst=061) POTASSIUM (BEAKER) (test 3.6 meq/L 3.5-5.1 guch=494) CHLORIDE (BEAKER) (test 105 meq/L 98-107 pbpq=292) CO2 (BEAKER) (test 23 meq/L 22-29 rllj=743) BLOOD UREA NITROGEN 4 mg/dL 7-21 (BEAKER) (test yifp=764) CREATININE (BEAKER) (test 0.59 mg/dL 0.57-1.25 cmwo=880) GLUCOSE RANDOM (BEAKER) 90 mg/dL 70-105 (test nqgv=100) CALCIUM (BEAKER) (test 8.0 mg/dL 8.4-10.2 fzry=469) AST (SGOT) (BEAKER) (test 16 U/L 5-34 zocq=371) ALT (SGPT) (BEAKER) (test 11 U/L 6-55 niga=806) EGFR (BEAKER) (test 162 mL/min/1.73 sq ESTIMATED GFR IS NOT aegb=5527) m ACCURATE CREATININE CLEARANCE IN PREDICTING GLOMERULAR FILTRATION RATE. ESTIMATED GFR IS NOT APPLICABLE FOR DIALYSIS PATIENTS. [id number] 06:50:00 Test Item Value Reference Range Comments MAGNESIUM (BEAKER) (test mrke=047) 1.0 mg/dL 1.6-2.6 COMPREHENSIVE METABOLIC [id number] 06:33:00 Test Item Value Reference Range Comments TOTAL PROTEIN (BEAKER) 5.4 gm/dL 6.0-8.3 (test bjvx=678) ALBUMIN (BEAKER) (test 2.4 g/dL 3.5-5.0 vqgz=1384) ALKALINE PHOSPHATASE 70 U/L 40-150 (BEAKER) (test ihab=363) BILIRUBIN TOTAL (BEAKER) 0.3 mg/dL 0.2-1.2 (test adgo=142) SODIUM (BEAKER) (test 139 meq/L 136-145 fvbf=909) POTASSIUM (BEAKER) (test 3.0 meq/L 3.5-5.1 rfvl=251) CHLORIDE (BEAKER) (test 106 meq/L 98-107 gvpy=103) CO2 (BEAKER) (test 25 meq/L 22-29 csyu=075) BLOOD UREA NITROGEN 3 mg/dL 7-21 (BEAKER) (test jcrw=054) CREATININE (BEAKER) (test 0.57 mg/dL 0.57-1.25 lpuo=337) GLUCOSE RANDOM (BEAKER) 93 mg/dL 70-105 (test ucdf=696) CALCIUM (BEAKER) (test 7.8 mg/dL 8.4-10.2 zgwz=526) AST (SGOT) (BEAKER) (test 24 U/L 5-34 aiya=441) ALT (SGPT) (BEAKER) (test 18 U/L 6-55 pwrz=688) EGFR (BEAKER) (test 169 mL/min/1.73 sq ESTIMATED GFR IS NOT xsop=9960) m ACCURATE CREATININE CLEARANCE IN PREDICTING GLOMERULAR FILTRATION RATE. ESTIMATED GFR IS NOT APPLICABLE FOR DIALYSIS PATIENTS. [id number] 06:31:00 Test Item Value Reference Range Comments PHOSPHORUS (BEAKER) (test zmpg=117) 3.3 mg/dL 2.3-4.7 CBC W/PLT COUNT & AUTO [id number] 06:23:00 Test Item Value Reference Range Comments WHITE BLOOD CELL COUNT (BEAKER) (test avkx=617) 7.6 K/ L 3.5-10.5 RED BLOOD CELL COUNT (BEAKER) (test hfsz=524) 3.00 M/ L 4.63-6.08 HEMOGLOBIN (BEAKER) (test uqpo=269) 8.6 GM/DL 13.7-17.5 HEMATOCRIT (BEAKER) (test unty=567) 26.5 % 40.1-51.0 MEAN CORPUSCULAR VOLUME (BEAKER) (test dxkf=821) 88.3 fL 79.0-92.2 MEAN CORPUSCULAR HEMOGLOBIN (BEAKER) (test 28.7 pg 25.7-32.2 uyoc=691) MEAN CORPUSCULAR HEMOGLOBIN CONC (BEAKER) (test 32.5 GM/DL 32.3-36.5 axnx=618) RED CELL DISTRIBUTION WIDTH (BEAKER) (test 14.8 % 11.6-14.4 guwb=055) PLATELET COUNT (BEAKER) (test tcia=198) 273 K/CU MM 150-450 MEAN PLATELET VOLUME (BEAKER) (test ymqd=255) 10.7 fL 9.4-12.4 NUCLEATED RED BLOOD CELLS (BEAKER) (test 0 /100 WBC 0-0 zzwl=977) NEUTROPHILS RELATIVE PERCENT (BEAKER) (test 73 % qhjv=341) LYMPHOCYTES RELATIVE PERCENT (BEAKER) (test 14 % cxeo=743) MONOCYTES RELATIVE PERCENT (BEAKER) (test 13 % cnmv=216) EOSINOPHILS RELATIVE PERCENT (BEAKER) (test 0 % coej=508) BASOPHILS RELATIVE PERCENT (BEAKER) (test 0 % izaf=603) NEUTROPHILS ABSOLUTE COUNT (BEAKER) (test 5.52 K/ L 1.78-5.38 qhhp=157) LYMPHOCYTES ABSOLUTE COUNT (BEAKER) (test 1.05 K/ L 1.32-3.57 ncod=579) MONOCYTES ABSOLUTE COUNT (BEAKER) (test 0.96 K/ L 0.30-0.82 gaye=827) EOSINOPHILS ABSOLUTE COUNT (BEAKER) (test 0.01 K/ L 0.04-0.54 xvfy=595) BASOPHILS ABSOLUTE COUNT (BEAKER) (test 0.02 K/ L 0.01-0.08 sjbv=034) IMMATURE GRANULOCYTES-RELATIVE PERCENT (BEAKER) 1 % 0-1 (test ahbr=3107) LACTIC ACID, [id number] 06:22:00 Test Item Value Reference Range Comments LACTATE BLOOD VENOUS (2) (BEAKER) (test 0.8 mmol/L 0.5-2.2 usmx=0372) CALCIUM, [id number] 06:18:00 Test Item Value Reference Range Comments CALCIUM IONIZED (BEAKER) (test pywm=930) 1.01 mmol/L 1.12-1.27 PH, BLOOD (BEAKER) (test vgoi=2080) 7.46 U/S, ABDOMINAL, [id number] 16:51:00Abdomen limited area? Add comment if clarification [...] MDReport Verified Date/Time: 07/28/2018 16:51:39 Reading Location: [address] Consult Reading Room [id number] 06:56:00 Test Item Value Reference Range Comments PHOSPHORUS (BEAKER) (test whtf=062) 2.6 mg/dL 2.3-4.7 [id number] 06:56:00 Test Item Value Reference Range Comments MAGNESIUM (BEAKER) (test gfyd=306) 1.5 mg/dL 1.6-2.6 BASIC METABOLIC [id number] 06:56:00 Test Item Value Reference Range Comments SODIUM (BEAKER) (test 139 meq/L 136-145 npmk=459) POTASSIUM (BEAKER) (test 3.5 meq/L 3.5-5.1 lzzj=234) CHLORIDE (BEAKER) (test 107 meq/L 98-107 dulk=360) CO2 (BEAKER) (test 24 meq/L 22-29 kkmt=745) BLOOD UREA NITROGEN 6 mg/dL 7-21 (BEAKER) (test uqih=031) CREATININE (BEAKER) (test 0.61 mg/dL 0.57-1.25 zmhe=073) GLUCOSE RANDOM (BEAKER) 91 mg/dL 70-105 (test pyzr=685) CALCIUM (BEAKER) (test 7.9 mg/dL 8.4-10.2 sgaj=333) EGFR (BEAKER) (test 156 mL/min/1.73 sq m ESTIMATED GFR IS NOT ofob=7444) ACCURATE CREATININE CLEARANCE IN PREDICTING GLOMERULAR FILTRATION RATE. ESTIMATED GFR IS NOT APPLICABLE FOR DIALYSIS PATIENTS. LACTIC ACID, [id number] 06:49:00 Test Item Value Reference Range Comments LACTATE BLOOD VENOUS (2) (BEAKER) (test 0.7 mmol/L 0.5-2.2 nmpd=4007) CBC W/PLT COUNT & AUTO [id number] 06:31:00 Test Item Value Reference Range Comments WHITE BLOOD CELL COUNT (BEAKER) (test keri=324) 6.5 K/ L 3.5-10.5 RED BLOOD CELL COUNT (BEAKER) (test puwf=585) 3.00 M/ L 4.63-6.08 HEMOGLOBIN (BEAKER) (test apkl=192) 8.4 GM/DL 13.7-17.5 HEMATOCRIT (BEAKER) (test ubxy=433) 27.3 % 40.1-51.0 MEAN CORPUSCULAR VOLUME (BEAKER) (test euht=873) 91.0 fL 79.0-92.2 MEAN CORPUSCULAR HEMOGLOBIN (BEAKER) (test 28.0 pg 25.7-32.2 adrz=366) MEAN CORPUSCULAR HEMOGLOBIN CONC (BEAKER) (test 30.8 GM/DL 32.3-36.5 busg=757) RED CELL DISTRIBUTION WIDTH (BEAKER) (test 14.7 % 11.6-14.4 dicg=773) PLATELET COUNT (BEAKER) (test dkiq=971) 231 K/CU MM 150-450 MEAN PLATELET VOLUME (BEAKER) (test tjib=169) 11.0 fL 9.4-12.4 NUCLEATED RED BLOOD CELLS (BEAKER) (test 0 /100 WBC 0-0 azky=943) NEUTROPHILS RELATIVE PERCENT (BEAKER) (test 74 % kcpb=339) LYMPHOCYTES RELATIVE PERCENT (BEAKER) (test 17 % wlqj=830) MONOCYTES RELATIVE PERCENT (BEAKER) (test 9 % zsgz=577) EOSINOPHILS RELATIVE PERCENT (BEAKER) (test 0 % khzj=929) BASOPHILS RELATIVE PERCENT (BEAKER) (test 0 % dbsd=084) NEUTROPHILS ABSOLUTE COUNT (BEAKER) (test 4.77 K/ L 1.78-5.38 jfuf=155) LYMPHOCYTES ABSOLUTE COUNT (BEAKER) (test 1.09 K/ L 1.32-3.57 smzb=931) MONOCYTES ABSOLUTE COUNT (BEAKER) (test 0.56 K/ L 0.30-0.82 vsfi=720) EOSINOPHILS ABSOLUTE COUNT (BEAKER) (test 0.00 K/ L 0.04-0.54 rhan=866) BASOPHILS ABSOLUTE COUNT (BEAKER) (test 0.01 K/ L 0.01-0.08 nvun=163) IMMATURE GRANULOCYTES-RELATIVE PERCENT (BEAKER) 0 % 0-1 (test vbgq=2310) [id number] 17:59:00 Test Item Value Reference Range Comments PHOSPHORUS (BEAKER) (test hyag=345) 3.4 mg/dL 2.3-4.7 Check Serum Phosphorus level 4 hours after IV phosphorus replacement or 8 hours after PO replacementcompleted.[id number] 17:59:00 Test Item Value Reference Range Comments MAGNESIUM (BEAKER) (test tqft=336) 1.7 mg/dL 1.6-2.6 Check Serum Phosphorus level 4 hours after IV phosphorus replacement or 8 hours after PO replacementcompleted.[id number] 04:50:00 Test Item Value Reference Range Comments PHOSPHORUS (BEAKER) (test wedt=026) 1.8 mg/dL 2.3-4.7 [id number] 04:50:00 Test Item Value Reference Range Comments MAGNESIUM (BEAKER) (test cyrl=492) 1.4 mg/dL 1.6-2.6 BASIC METABOLIC [id number] 04:50:00 Test Item Value Reference Range Comments SODIUM (BEAKER) (test 137 meq/L 136-145 wnds=609) POTASSIUM (BEAKER) (test 3.9 meq/L 3.5-5.1 sikq=562) CHLORIDE (BEAKER) (test 107 meq/L 98-107 bmmd=253) CO2 (BEAKER) (test 25 meq/L 22-29 crpe=136) BLOOD UREA NITROGEN 6 mg/dL 7-21 (BEAKER) (test cjmu=263) CREATININE (BEAKER) (test 0.62 mg/dL 0.57-1.25 ezqb=929) GLUCOSE RANDOM (BEAKER) 131 mg/dL 70-105 (test eoez=278) CALCIUM (BEAKER) (test 8.0 mg/dL 8.4-10.2 jeqb=959) EGFR (BEAKER) (test 153 mL/min/1.73 sq m ESTIMATED GFR IS NOT gzyg=4321) ACCURATE CREATININE CLEARANCE IN PREDICTING GLOMERULAR FILTRATION RATE. ESTIMATED GFR IS NOT APPLICABLE FOR DIALYSIS PATIENTS. CBC W/PLT COUNT & AUTO [id number] 04:45:00 Test Item Value Reference Range Comments WHITE BLOOD CELL COUNT (BEAKER) (test gcdq=516) 6.0 K/ L 3.5-10.5 RED BLOOD CELL COUNT (BEAKER) (test emwx=023) 4.00 M/ L 4.63-6.08 HEMOGLOBIN (BEAKER) (test wybd=464) 11.3 GM/DL 13.7-17.5 HEMATOCRIT (BEAKER) (test xutn=204) 35.8 % 40.1-51.0 MEAN CORPUSCULAR VOLUME (BEAKER) (test swin=838) 89.5 fL 79.0-92.2 MEAN CORPUSCULAR HEMOGLOBIN (BEAKER) (test 28.3 pg 25.7-32.2 tfaw=877) MEAN CORPUSCULAR HEMOGLOBIN CONC (BEAKER) (test 31.6 GM/DL 32.3-36.5 mufc=019) RED CELL DISTRIBUTION WIDTH (BEAKER) (test 14.5 % 11.6-14.4 hkdx=856) PLATELET COUNT (BEAKER) (test euaw=665) 167 K/CU MM 150-450 MEAN PLATELET VOLUME (BEAKER) (test ygvp=825) 11.1 fL 9.4-12.4 NUCLEATED RED BLOOD CELLS (BEAKER) (test 0 /100 WBC 0-0 mjeg=087) NEUTROPHILS RELATIVE PERCENT (BEAKER) (test 88 % nycl=719) LYMPHOCYTES RELATIVE PERCENT (BEAKER) (test 7 % velu=594) MONOCYTES RELATIVE PERCENT (BEAKER) (test 4 % behf=018) EOSINOPHILS RELATIVE PERCENT (BEAKER) (test 0 % ozbk=181) BASOPHILS RELATIVE PERCENT (BEAKER) (test 0 % eogs=434) NEUTROPHILS ABSOLUTE COUNT (BEAKER) (test 5.30 K/ L 1.78-5.38 gerd=833) LYMPHOCYTES ABSOLUTE COUNT (BEAKER) (test 0.43 K/ L 1.32-3.57 fotq=171) MONOCYTES ABSOLUTE COUNT (BEAKER) (test 0.24 K/ L 0.30-0.82 xies=305) EOSINOPHILS ABSOLUTE COUNT (BEAKER) (test 0.00 K/ L 0.04-0.54 sufx=923) BASOPHILS ABSOLUTE COUNT (BEAKER) (test 0.01 K/ L 0.01-0.08 shtd=650) IMMATURE GRANULOCYTES-RELATIVE PERCENT (BEAKER) 0 % 0-1 (test jqyv=7373) FL, [id number] 22:28:00Reason for exam:->bile duct stent removalFINAL REPORT Examination: ERCP 4 fluoroscopic spot views were obtained during the procedure by the ordering service. Images are nondiagnostic as no radiologist was present at the time of imaging. Fluoroscopic time was 49.6 seconds. Please see the procedure report for details. Signed: Kevin Golden MDReport Verified Date/Time: 07/26/2018 22:28: 43 Reading Location: [address] Reading Room POCT-GLUCOSE [id number] 20:43:00 Test Item Value Reference Range Comments POC-GLUCOSE METER (BEAKER) 146 mg/dL 70-110 TESTED AT [address] (test pyfr=7142) [facility] [address] RAPID STREP A [id number] 18:22:00 Test Item Value Reference Range Comments STREP A ANTIGEN (BEAKER) (test tdwi=564) Negative COMPREHENSIVE METABOLIC [id number] 17:37:00 Test Item Value Reference Range Comments TOTAL PROTEIN (BEAKER) 6.1 gm/dL 6.0-8.3 (test jfls=076) ALBUMIN (BEAKER) (test 2.6 g/dL 3.5-5.0 tsed=4382) ALKALINE PHOSPHATASE 109 U/L 40-150 (BEAKER) (test qxhp=698) BILIRUBIN TOTAL (BEAKER) 0.7 mg/dL 0.2-1.2 (test axie=272) SODIUM (BEAKER) (test 138 meq/L 136-145 amnr=973) POTASSIUM (BEAKER) (test 3.5 meq/L 3.5-5.1 ohoo=793) CHLORIDE (BEAKER) (test 104 meq/L 98-107 fiep=246) CO2 (BEAKER) (test 27 meq/L 22-29 qane=108) BLOOD UREA NITROGEN 6 mg/dL 7-21 (BEAKER) (test ychc=572) CREATININE (BEAKER) (test 0.65 mg/dL 0.57-1.25 wbyk=867) GLUCOSE RANDOM (BEAKER) 115 mg/dL 70-105 (test fwql=606) CALCIUM (BEAKER) (test 8.2 mg/dL 8.4-10.2 zopd=300) AST (SGOT) (BEAKER) (test 36 U/L 5-34 rkqx=318) ALT (SGPT) (BEAKER) (test 42 U/L 6-55 yxde=612) EGFR (BEAKER) (test 145 mL/min/1.73 sq ESTIMATED GFR IS NOT fxoy=5981) m ACCURATE CREATININE CLEARANCE IN PREDICTING GLOMERULAR FILTRATION RATE. ESTIMATED GFR IS NOT APPLICABLE FOR DIALYSIS PATIENTS. CBC W/PLT COUNT & AUTO [id number] 17:16:00 Test Item Value Reference Range Comments WHITE BLOOD CELL COUNT (BEAKER) (test wmqf=083) 11.1 K/ L 3.5-10.5 RED BLOOD CELL COUNT (BEAKER) (test wjtn=423) 3.44 M/ L 4.63-6.08 HEMOGLOBIN (BEAKER) (test kges=482) 9.9 GM/DL 13.7-17.5 HEMATOCRIT (BEAKER) (test vdey=690) 30.6 % 40.1-51.0 MEAN CORPUSCULAR VOLUME (BEAKER) (test uwod=863) 89.0 fL 79.0-92.2 MEAN CORPUSCULAR HEMOGLOBIN (BEAKER) (test 28.8 pg 25.7-32.2 jdkd=792) MEAN CORPUSCULAR HEMOGLOBIN CONC (BEAKER) (test 32.4 GM/DL 32.3-36.5 xypn=266) RED CELL DISTRIBUTION WIDTH (BEAKER) (test 14.6 % 11.6-14.4 rhiy=662) PLATELET COUNT (BEAKER) (test xdjz=062) 240 K/CU MM 150-450 MEAN PLATELET VOLUME (BEAKER) (test wegp=522) 11.2 fL 9.4-12.4 NUCLEATED RED BLOOD CELLS (BEAKER) (test 0 /100 WBC 0-0 qdgh=707) NEUTROPHILS RELATIVE PERCENT (BEAKER) (test 79 % ircz=020) LYMPHOCYTES RELATIVE PERCENT (BEAKER) (test 10 % jarl=954) MONOCYTES RELATIVE PERCENT (BEAKER) (test 10 % jkpv=728) EOSINOPHILS RELATIVE PERCENT (BEAKER) (test 0 % wurb=287) BASOPHILS RELATIVE PERCENT (BEAKER) (test 0 % cjla=258) NEUTROPHILS ABSOLUTE COUNT (BEAKER) (test 8.76 K/ L 1.78-5.38 pomc=416) LYMPHOCYTES ABSOLUTE COUNT (BEAKER) (test 1.09 K/ L 1.32-3.57 jrgd=957) MONOCYTES ABSOLUTE COUNT (BEAKER) (test 1.11 K/ L 0.30-0.82 vxgp=127) EOSINOPHILS ABSOLUTE COUNT (BEAKER) (test 0.04 K/ L 0.04-0.54 ubem=531) BASOPHILS ABSOLUTE COUNT (BEAKER) (test 0.01 K/ L 0.01-0.08 egix=629) IMMATURE GRANULOCYTES-RELATIVE PERCENT (BEAKER) 1 % 0-1 (test udtz=1012) POCT-GLUCOSE [id number] 12:06:00 Test Item Value Reference Range Comments POC-GLUCOSE METER (BEAKER) 132 mg/dL 70-110 TESTED AT [address] (test hmtj=7953) [place] [address] POCT-GLUCOSE [id number] 08:57:00 Test Item Value Reference Range Comments POC-GLUCOSE METER (BEAKER) 80 mg/dL 70-110 TESTED AT [address] (test eqac=5535) [place] [id number] BASIC METABOLIC [id number] 06:35:00 Test Item Value Reference Range Comments SODIUM (BEAKER) (test 136 meq/L 136-145 snop=723) POTASSIUM (BEAKER) (test 3.4 meq/L 3.5-5.1 djjy=724) CHLORIDE (BEAKER) (test 101 meq/L 98-107 fwhf=890) CO2 (BEAKER) (test 26 meq/L 22-29 cqjt=006) BLOOD UREA NITROGEN 6 mg/dL 7-21 (BEAKER) (test vqyj=872) CREATININE (BEAKER) (test 0.64 mg/dL 0.57-1.25 hzhw=617) GLUCOSE RANDOM (BEAKER) 80 mg/dL 70-105 (test wqwu=696) CALCIUM (BEAKER) (test 8.5 mg/dL 8.4-10.2 ymzv=817) EGFR (BEAKER) (test 148 mL/min/1.73 sq m ESTIMATED GFR IS NOT kjnd=9259) ACCURATE CREATININE CLEARANCE IN PREDICTING GLOMERULAR FILTRATION RATE. ESTIMATED GFR IS NOT APPLICABLE FOR DIALYSIS PATIENTS. POCT-GLUCOSE [id number] 22:36:00 Test Item Value Reference Range Comments POC-GLUCOSE METER (BEAKER) 72 mg/dL 70-110 TESTED AT [facility] [address] [facility] (test lwlk=0269) [facility] [address] POCT-GLUCOSE [id number] 12:21:00 Test Item Value Reference Range Comments POC-GLUCOSE METER (BEAKER) 82 mg/dL 70-110 TESTED AT [place] [id number] [facility] (test fiwp=7184) [facility] [address] BASIC METABOLIC [id number] 09:30:00 Test Item Value Reference Range Comments SODIUM (BEAKER) (test 137 meq/L 136-145 ydet=253) POTASSIUM (BEAKER) (test 3.8 meq/L 3.5-5.1 dbzf=470) CHLORIDE (BEAKER) (test 103 meq/L 98-107 ijbp=704) CO2 (BEAKER) (test 28 meq/L 22-29 wncc=451) BLOOD UREA NITROGEN 7 mg/dL 7-21 (BEAKER) (test hwot=925) CREATININE (BEAKER) (test 0.61 mg/dL 0.57-1.25 osux=643) GLUCOSE RANDOM (BEAKER) 90 mg/dL 70-105 (test lzbq=727) CALCIUM (BEAKER) (test 8.2 mg/dL 8.4-10.2 jzhs=718) EGFR (BEAKER) (test 156 mL/min/1.73 sq m ESTIMATED GFR IS NOT ozla=7878) ACCURATE CREATININE CLEARANCE IN PREDICTING GLOMERULAR FILTRATION RATE. ESTIMATED GFR IS NOT APPLICABLE FOR DIALYSIS PATIENTS. POCT-GLUCOSE [id number] 08:42:00 Test Item Value Reference Range Comments POC-GLUCOSE METER (BEAKER) 85 mg/dL 70-110 TESTED AT [address] (test pzbx=4799) [place] [address] POCT-GLUCOSE [id number] 21:33:00 Test Item Value Reference Range Comments POC-GLUCOSE METER (BEAKER) 106 mg/dL 70-110 TESTED AT [address] (test drhe=2087) [place] [address] POCT-GLUCOSE [id number] 17:42:00 Test Item Value Reference Range Comments POC-GLUCOSE METER (BEAKER) 95 mg/dL 70-110 TESTED AT [address] (test ylya=0030) [place] [address] [id number] 14:42:00 Test Item Value Reference Range Comments POTASSIUM (BEAKER) (test 3.7 meq/L 3.5-5.1 Specimen slightly hemolyzed sclf=399) Check Serum Potassium level 2 hours after oral potassium replacement completed or 30 min after intravenous potassium replacement.POCT-GLUCOSE [id number] 11:45:00 Test Item Value Reference Range Comments POC-GLUCOSE METER (BEAKER) 151 mg/dL 70-110 TESTED AT [address] (test ojwf=9543) [place] [address] POCT-GLUCOSE [id number] 09:45:00 Test Item Value Reference Range Comments POC-GLUCOSE METER (BEAKER) 127 mg/dL 70-110 TESTED AT [address] (test osdh=0962) [place] [address] BLOOD [id number] 08:00:00 Test Item Value Reference Range Comments CULTURE (BEAKER) (test cjrq=4945) No growth in 5 days BLOOD [id number] 08:00:00 Test Item Value Reference Range Comments CULTURE (BEAKER) (test jmki=6229) No growth in 5 days BASIC METABOLIC [id number] 06:48:00 Test Item Value Reference Range Comments SODIUM (BEAKER) (test 139 meq/L 136-145 fibb=264) POTASSIUM (BEAKER) (test 3.2 meq/L 3.5-5.1 jjbz=372) CHLORIDE (BEAKER) (test 104 meq/L 98-107 ktbv=674) CO2 (BEAKER) (test 28 meq/L 22-29 jylz=155) BLOOD UREA NITROGEN 7 mg/dL 7-21 (BEAKER) (test ddrp=031) CREATININE (BEAKER) (test 0.61 mg/dL 0.57-1.25 jseq=374) GLUCOSE RANDOM (BEAKER) 88 mg/dL 70-105 (test lovu=143) CALCIUM (BEAKER) (test 7.9 mg/dL 8.4-10.2 lbez=096) EGFR (BEAKER) (test 156 mL/min/1.73 sq m ESTIMATED GFR IS NOT raya=4750) ACCURATE CREATININE CLEARANCE IN PREDICTING GLOMERULAR FILTRATION RATE. ESTIMATED GFR IS NOT APPLICABLE FOR DIALYSIS PATIENTS. [id number] 06:46:00 Test Item Value Reference Range Comments PHOSPHORUS (BEAKER) (test pwyy=449) 3.5 mg/dL 2.3-4.7 [id number] 06:46:00 Test Item Value Reference Range Comments MAGNESIUM (BEAKER) (test edta=200) 1.7 mg/dL 1.6-2.6 CALCIUM, [id number] 06:45:00 Test Item Value Reference Range Comments CALCIUM IONIZED (BEAKER) (test xjan=313) 1.00 mmol/L 1.12-1.27 PH, BLOOD (BEAKER) (test cbfu=2784) 7.52 POCT-GLUCOSE [id number] 21:56:00 Test Item Value Reference Range Comments POC-GLUCOSE METER (BEAKER) 112 mg/dL 70-110 TESTED AT [address] (test kpby=2042) [facility] [address] POCT-GLUCOSE [id number] 17:46:00 Test Item Value Reference Range Comments POC-GLUCOSE METER (BEAKER) 86 mg/dL 70-110 TESTED AT [address] (test dbtd=5785) [facility] [address] POCT-GLUCOSE [id number] 11:20:00 Test Item Value Reference Range Comments POC-GLUCOSE METER (BEAKER) 164 mg/dL 70-110 TESTED AT [address] (test zuca=9900) [facility] [address] POCT-GLUCOSE [id number] 08:57:00 Test Item Value Reference Range Comments POC-GLUCOSE METER (BEAKER) 88 mg/dL 70-110 TESTED AT [facility] [address] (test miqe=5378) [facility] [address] CALCIUM, [id number] 05:14:00 Test Item Value Reference Range Comments CALCIUM IONIZED (BEAKER) (test soci=915) 1.12 mmol/L 1.12-1.27 PH, BLOOD (BEAKER) (test pala=1263) 7.43 BASIC METABOLIC [id number] 04:59:00 Test Item Value Reference Range Comments SODIUM (BEAKER) (test 140 meq/L 136-145 xflc=763) POTASSIUM (BEAKER) (test 3.3 meq/L 3.5-5.1 srrp=082) CHLORIDE (BEAKER) (test 107 meq/L 98-107 cekz=527) CO2 (BEAKER) (test 28 meq/L 22-29 pudt=097) BLOOD UREA NITROGEN 10 mg/dL 7-21 (BEAKER) (test emhc=893) CREATININE (BEAKER) (test 0.64 mg/dL 0.57-1.25 fvip=278) GLUCOSE RANDOM (BEAKER) 99 mg/dL 70-105 (test kywp=723) CALCIUM (BEAKER) (test 7.5 mg/dL 8.4-10.2 lemb=239) EGFR (BEAKER) (test 148 mL/min/1.73 sq m ESTIMATED GFR IS NOT jwur=2812) ACCURATE CREATININE CLEARANCE IN PREDICTING GLOMERULAR FILTRATION RATE. ESTIMATED GFR IS NOT APPLICABLE FOR DIALYSIS PATIENTS. [id number] 04:57:00 Test Item Value Reference Range Comments MAGNESIUM (BEAKER) (test rdfo=844) 1.8 mg/dL 1.6-2.6 [id number] 04:56:00 Test Item Value Reference Range Comments PHOSPHORUS (BEAKER) (test zhko=611) 3.4 mg/dL 2.3-4.7 [id number] 04:54:00 Test Item Value Reference Range Comments PROTIME (BEAKER) (test giub=595) 17.0 seconds 11.9-14.2 INR (BEAKER) (test iiwg=504) 1.5 <=5.9 PARTIAL THROMBOPLASTIN TIME (BEAKER) (test 34.1 seconds 22.5-36.0 vcrp=857) Effective 07/03/2018: PT Reference Range ChangeNew: 11.9-14.2 Previous: 11.7- 14.7RECOMMENDED COUMADIN/WARFARIN INR THERAPY RANGESSTANDARD DOSE: 2.0-3.0 Includes: PROPHYLAXIS for venous thrombosis, systemic embolization; TREATMENT for venous thrombosis and/or pulmonary embolus.HIGH RISK: Target INR is2.5-3.5 for patients wiht mechanical heart valves.PROTHROMBIN [id number] 04:52: 00 Test Item Value Reference Range Comments PROTIME (BEAKER) (test ejxs=289) 17.0 seconds 11.9-14.2 INR (BEAKER) (test sevk=414) 1.5 <=5.9 Effective 07/03/2018: PT Reference Range ChangeNew: 11.9-14.2 Previous: 11.7- 14.7RECOMMENDED COUMADIN/WARFARIN INR THERAPY RANGESSTANDARD DOSE: 2.0-3.0 Includes: PROPHYLAXIS for venous thrombosis, systemic embolization; TREATMENT for venous thrombosis and/or pulmonary embolus.HIGH RISK: Target INR is2.5-3.5 for patients wiht mechanical heart valves.CBC W/PLT COUNT & AUTO [id number] 04:47:00 Test Item Value Reference Range Comments WHITE BLOOD CELL COUNT (BEAKER) (test aqsr=296) 8.1 K/ L 3.5-10.5 RED BLOOD CELL COUNT (BEAKER) (test ijdv=525) 3.62 M/ L 4.63-6.08 HEMOGLOBIN (BEAKER) (test eeyy=547) 10.5 GM/DL 13.7-17.5 HEMATOCRIT (BEAKER) (test eryy=463) 32.5 % 40.1-51.0 MEAN CORPUSCULAR VOLUME (BEAKER) (test ypvt=957) 89.8 fL 79.0-92.2 MEAN CORPUSCULAR HEMOGLOBIN (BEAKER) (test 29.0 pg 25.7-32.2 drmx=839) MEAN CORPUSCULAR HEMOGLOBIN CONC (BEAKER) (test 32.3 GM/DL 32.3-36.5 dtjg=495) RED CELL DISTRIBUTION WIDTH (BEAKER) (test 13.7 % 11.6-14.4 xqig=169) PLATELET COUNT (BEAKER) (test ypjy=377) 339 K/CU MM 150-450 MEAN PLATELET VOLUME (BEAKER) (test ewcf=383) 10.7 fL 9.4-12.4 NUCLEATED RED BLOOD CELLS (BEAKER) (test 0 /100 WBC 0-0 xjou=992) NEUTROPHILS RELATIVE PERCENT (BEAKER) (test 69 % vnxl=389) LYMPHOCYTES RELATIVE PERCENT (BEAKER) (test 23 % fbfl=051) MONOCYTES RELATIVE PERCENT (BEAKER) (test 7 % tygs=423) EOSINOPHILS RELATIVE PERCENT (BEAKER) (test 0 % uuyl=751) BASOPHILS RELATIVE PERCENT (BEAKER) (test 0 % klxi=298) NEUTROPHILS ABSOLUTE COUNT (BEAKER) (test 5.62 K/ L 1.78-5.38 bxgw=166) LYMPHOCYTES ABSOLUTE COUNT (BEAKER) (test 1.88 K/ L 1.32-3.57 vwxl=671) MONOCYTES ABSOLUTE COUNT (BEAKER) (test 0.60 K/ L 0.30-0.82 frmp=296) EOSINOPHILS ABSOLUTE COUNT (BEAKER) (test 0.00 K/ L 0.04-0.54 lxhg=605) BASOPHILS ABSOLUTE COUNT (BEAKER) (test 0.00 K/ L 0.01-0.08 nryc=237) IMMATURE GRANULOCYTES-RELATIVE PERCENT (BEAKER) 1 % 0-1 (test xjpy=7479) POCT-GLUCOSE [id number] 22:08:00 Test Item Value Reference Range Comments POC-GLUCOSE METER (BEAKER) 133 mg/dL 70-110 TESTED AT [address] (test wmag=9025) [place] [id number] POCT-GLUCOSE [id number] 18:34:00 Test Item Value Reference Range Comments POC-GLUCOSE METER (BEAKER) 151 mg/dL 70-110 TESTED AT [address] (test gkzv=0637) [place] [address] POCT-GLUCOSE [id number] 12:29:00 Test Item Value Reference Range Comments POC-GLUCOSE METER (BEAKER) 124 mg/dL 70-110 TESTED AT [address] (test xcrs=6178) [place] [address] RAD, CHEST, 1 VIEW, NON [id number] 10:57:00Reason for exam:->SOBShould this be performed at [...] MDReport Verified Date/Time: 07/15/2018 10:57:23 Reading Location: [facility] Radiology Reading Room [facility] [place]. DIFFICILE GDH [id number] 10: 08:00 Test Item Value Reference Range Comments CDT TOXIN (test Negative Negative xkbk=[id number]) CDT GDH ANTIGEN (test Negative Negative No indication of Clostridium nnzv=[id number]) difficile infection and no colonization. Discontinue enteric isolation and therapy. Testing performed by [employer] Rapid Cassette Assay. For GDH, published sensitivity of the assay is 98.7% compared to cytotoxicity testing. For Toxin AB, published sensitivity is 87.8% and specificity 99.4% compared to cytotoxicity testing.Verification of kit performance was done by the [facility] Microbiology Lab prior to clinical use.POCT-GLUCOSE [id number] 08:57:00 Test Item Value Reference Range Comments POC-GLUCOSE METER (BEAKER) 159 mg/dL 70-110 TESTED AT [address] (test vfif=7333) [facility] [address] BLOOD [id number] 08:01:00 Test Item Value Reference Range Comments CULTURE (BEAKER) (test icog=4668) No growth in 5 days BLOOD [id number] 08:01:00 Test Item Value Reference Range Comments CULTURE (BEAKER) (test uxjs=6020) No growth in 5 days BASIC METABOLIC [id number] 04:49:00 Test Item Value Reference Range Comments SODIUM (BEAKER) (test 137 meq/L 136-145 efps=376) POTASSIUM (BEAKER) (test 3.9 meq/L 3.5-5.1 qyuo=216) CHLORIDE (BEAKER) (test 107 meq/L 98-107 qluy=509) CO2 (BEAKER) (test 24 meq/L 22-29 eefz=970) BLOOD UREA NITROGEN 8 mg/dL 7-21 (BEAKER) (test nswp=048) CREATININE (BEAKER) (test 0.61 mg/dL 0.57-1.25 glkd=850) GLUCOSE RANDOM (BEAKER) 143 mg/dL 70-105 (test ggnh=500) CALCIUM (BEAKER) (test 7.4 mg/dL 8.4-10.2 cghs=065) EGFR (BEAKER) (test 156 mL/min/1.73 sq m ESTIMATED GFR IS NOT xhdr=3239) ACCURATE CREATININE CLEARANCE IN PREDICTING GLOMERULAR FILTRATION RATE. ESTIMATED GFR IS NOT APPLICABLE FOR DIALYSIS PATIENTS. [id number] 04:29:00 Test Item Value Reference Range Comments PHOSPHORUS (BEAKER) (test nqpn=816) 2.7 mg/dL 2.3-4.7 [id number] 04:29:00 Test Item Value Reference Range Comments MAGNESIUM (BEAKER) (test cljg=772) 2.2 mg/dL 1.6-2.6 CBC W/PLT COUNT & AUTO [id number] 04:14:00 Test Item Value Reference Range Comments WHITE BLOOD CELL COUNT (BEAKER) (test huzt=258) 8.5 K/ L 3.5-10.5 RED BLOOD CELL COUNT (BEAKER) (test kdgx=950) 3.45 M/ L 4.63-6.08 HEMOGLOBIN (BEAKER) (test zsap=065) 9.9 GM/DL 13.7-17.5 HEMATOCRIT (BEAKER) (test evqm=427) 30.8 % 40.1-51.0 MEAN CORPUSCULAR VOLUME (BEAKER) (test vvbb=155) 89.3 fL 79.0-92.2 MEAN CORPUSCULAR HEMOGLOBIN (BEAKER) (test 28.7 pg 25.7-32.2 kptg=562) MEAN CORPUSCULAR HEMOGLOBIN CONC (BEAKER) (test 32.1 GM/DL 32.3-36.5 nncv=007) RED CELL DISTRIBUTION WIDTH (BEAKER) (test 13.8 % 11.6-14.4 uinh=337) PLATELET COUNT (BEAKER) (test tkkb=414) 317 K/CU MM 150-450 MEAN PLATELET VOLUME (BEAKER) (test hkrl=372) 11.0 fL 9.4-12.4 NUCLEATED RED BLOOD CELLS (BEAKER) (test 0 /100 WBC 0-0 epxe=221) NEUTROPHILS RELATIVE PERCENT (BEAKER) (test 84 % cahn=402) LYMPHOCYTES RELATIVE PERCENT (BEAKER) (test 13 % lags=627) MONOCYTES RELATIVE PERCENT (BEAKER) (test 3 % mouv=170) EOSINOPHILS RELATIVE PERCENT (BEAKER) (test 0 % cqqr=489) BASOPHILS RELATIVE PERCENT (BEAKER) (test 0 % vbdu=172) NEUTROPHILS ABSOLUTE COUNT (BEAKER) (test 7.13 K/ L 1.78-5.38 mduo=146) LYMPHOCYTES ABSOLUTE COUNT (BEAKER) (test 1.06 K/ L 1.32-3.57 eaws=471) MONOCYTES ABSOLUTE COUNT (BEAKER) (test 0.25 K/ L 0.30-0.82 eqqw=773) EOSINOPHILS ABSOLUTE COUNT (BEAKER) (test 0.00 K/ L 0.04-0.54 vlwo=282) BASOPHILS ABSOLUTE COUNT (BEAKER) (test 0.00 K/ L 0.01-0.08 advs=854) IMMATURE GRANULOCYTES-RELATIVE PERCENT (BEAKER) 1 % 0-1 (test fjxu=0918) CALCIUM, [id number] 03:58:00 Test Item Value Reference Range Comments CALCIUM IONIZED (BEAKER) (test vami=928) 1.11 mmol/L 1.12-1.27 PH, BLOOD (BEAKER) (test esef=1909) 7.41 POCT-GLUCOSE [id number] 23:20:00 Test Item Value Reference Range Comments POC-GLUCOSE METER (BEAKER) 208 mg/dL 70-110 TESTED AT [facility] [address] [facility] (test yhar=7738) [facility] [address] BASIC METABOLIC [id number] 18:01:00 Test Item Value Reference Range Comments SODIUM (BEAKER) (test 139 meq/L 136-145 cvgw=248) POTASSIUM (BEAKER) (test 3.8 meq/L 3.5-5.1 inll=521) CHLORIDE (BEAKER) (test 108 meq/L 98-107 jkrm=948) CO2 (BEAKER) (test 26 meq/L 22-29 dkvf=000) BLOOD UREA NITROGEN 8 mg/dL 7-21 (BEAKER) (test qxts=497) CREATININE (BEAKER) (test 0.66 mg/dL 0.57-1.25 hjga=830) GLUCOSE RANDOM (BEAKER) 157 mg/dL 70-105 (test vthj=873) CALCIUM (BEAKER) (test 7.7 mg/dL 8.4-10.2 jwkn=071) EGFR (BEAKER) (test 143 mL/min/1.73 sq m ESTIMATED GFR IS NOT pwfj=1223) ACCURATE CREATININE CLEARANCE IN PREDICTING GLOMERULAR FILTRATION RATE. ESTIMATED GFR IS NOT APPLICABLE FOR DIALYSIS PATIENTS. [id number] 18:00:00 Test Item Value Reference Range Comments TRIGLYCERIDES (BEAKER) (test siih=914) 125 mg/dL TRIGLYCERIDE REFERENCE RANGELow Risk <150Borderline Risk 150-199High Risk 200-499Very High Risk>=[id number] 18:00:00 Test Item Value Reference Range Comments MAGNESIUM (BEAKER) (test uazg=369) 1.6 mg/dL 1.6-2.6 CALCIUM, [id number] 17:46:00 Test Item Value Reference Range Comments CALCIUM IONIZED (BEAKER) (test ofhb=359) 1.13 mmol/L 1.12-1.27 PH, BLOOD (BEAKER) (test rodg=1202) 7.41 POCT-GLUCOSE [id number] 17:45:00 Test Item Value Reference Range Comments POC-GLUCOSE METER (BEAKER) 173 mg/dL 70-110 TESTED AT [address] (test xavt=0261) [place] [address] POCT-GLUCOSE [id number] 11:46:00 Test Item Value Reference Range Comments POC-GLUCOSE METER (BEAKER) 163 mg/dL 70-110 TESTED AT [address] (test kwap=7214) [place] [address] BASIC METABOLIC [id number] 09:43:00 Test Item Value Reference Range Comments SODIUM (BEAKER) (test 140 meq/L 136-145 qykr=468) POTASSIUM (BEAKER) (test 3.3 meq/L 3.5-5.1 mwji=218) CHLORIDE (BEAKER) (test 108 meq/L 98-107 znyz=069) CO2 (BEAKER) (test 27 meq/L 22-29 gfzj=135) BLOOD UREA NITROGEN 9 mg/dL 7-21 (BEAKER) (test qrot=686) CREATININE (BEAKER) (test 0.65 mg/dL 0.57-1.25 njjc=267) GLUCOSE RANDOM (BEAKER) 151 mg/dL 70-105 (test xrfw=990) CALCIUM (BEAKER) (test 7.7 mg/dL 8.4-10.2 ppan=817) EGFR (BEAKER) (test 145 mL/min/1.73 sq m ESTIMATED GFR IS NOT ofbm=7064) ACCURATE CREATININE CLEARANCE IN PREDICTING GLOMERULAR FILTRATION RATE. ESTIMATED GFR IS NOT APPLICABLE FOR DIALYSIS PATIENTS. HEPATIC FUNCTION [id number] 09:43:00 Test Item Value Reference Range Comments TOTAL PROTEIN (BEAKER) (test wpyj=246) 5.1 gm/dL 6.0-8.3 ALBUMIN (BEAKER) (test bjbs=0883) 2.3 g/dL 3.5-5.0 BILIRUBIN TOTAL (BEAKER) (test hhwf=602) 0.3 mg/dL 0.2-1.2 BILIRUBIN DIRECT (BEAKER) (test fzmd=922) 0.3 mg/dL 0.1-0.5 ALKALINE PHOSPHATASE (BEAKER) (test wbvv=186) 57 U/L 40-150 AST (SGOT) (BEAKER) (test gqqh=073) 11 U/L 5-34 ALT (SGPT) (BEAKER) (test isir=292) < U/L 6-55 CALCIUM, [id number] 09:39:00 Test Item Value Reference Range Comments CALCIUM IONIZED (BEAKER) (test btdp=239) 1.07 mmol/L 1.12-1.27 PH, BLOOD (BEAKER) (test xean=9502) 7.44 [id number] 09:26:00 Test Item Value Reference Range Comments PHOSPHORUS (BEAKER) (test pxic=940) 2.3 mg/dL 2.3-4.7 [id number] 09:26:00 Test Item Value Reference Range Comments MAGNESIUM (BEAKER) (test heel=435) 1.2 mg/dL 1.6-2.6 CBC W/PLT COUNT & AUTO [id number] 09:07:00 Test Item Value Reference Range Comments WHITE BLOOD CELL COUNT (BEAKER) (test quxl=689) 13.5 K/ L 3.5-10.5 RED BLOOD CELL COUNT (BEAKER) (test fshn=162) 3.62 M/ L 4.63-6.08 HEMOGLOBIN (BEAKER) (test qojn=289) 10.4 GM/DL 13.7-17.5 HEMATOCRIT (BEAKER) (test mowd=076) 32.1 % 40.1-51.0 MEAN CORPUSCULAR VOLUME (BEAKER) (test qunf=614) 88.7 fL 79.0-92.2 MEAN CORPUSCULAR HEMOGLOBIN (BEAKER) (test 28.7 pg 25.7-32.2 vojw=749) MEAN CORPUSCULAR HEMOGLOBIN CONC (BEAKER) (test 32.4 GM/DL 32.3-36.5 rqpo=974) RED CELL DISTRIBUTION WIDTH (BEAKER) (test 13.6 % 11.6-14.4 utso=089) PLATELET COUNT (BEAKER) (test dqmb=256) 323 K/CU MM 150-450 MEAN PLATELET VOLUME (BEAKER) (test awpg=990) 11.0 fL 9.4-12.4 NUCLEATED RED BLOOD CELLS (BEAKER) (test 0 /100 WBC 0-0 utej=399) NEUTROPHILS RELATIVE PERCENT (BEAKER) (test 87 % wnzq=417) LYMPHOCYTES RELATIVE PERCENT (BEAKER) (test 8 % udua=188) MONOCYTES RELATIVE PERCENT (BEAKER) (test 5 % wkwn=087) EOSINOPHILS RELATIVE PERCENT (BEAKER) (test 0 % knkq=266) BASOPHILS RELATIVE PERCENT (BEAKER) (test 0 % qaly=967) NEUTROPHILS ABSOLUTE COUNT (BEAKER) (test 11.73 K/ L 1.78-5.38 ghsv=795) LYMPHOCYTES ABSOLUTE COUNT (BEAKER) (test 1.06 K/ L 1.32-3.57 lvcc=568) MONOCYTES ABSOLUTE COUNT (BEAKER) (test 0.62 K/ L 0.30-0.82 iscx=770) EOSINOPHILS ABSOLUTE COUNT (BEAKER) (test 0.00 K/ L 0.04-0.54 cixi=592) BASOPHILS ABSOLUTE COUNT (BEAKER) (test 0.01 K/ L 0.01-0.08 aggg=069) IMMATURE GRANULOCYTES-RELATIVE PERCENT (BEAKER) 1 % 0-1 (test orrf=0277) POCT-GLUCOSE [id number] 06:10:00 Test Item Value Reference Range Comments POC-GLUCOSE METER (BEAKER) 170 mg/dL 70-110 TESTED AT [address] (test oran=4034) [place] [address] POCT-GLUCOSE [id number] 23:12:00 Test Item Value Reference Range Comments POC-GLUCOSE METER (BEAKER) 200 mg/dL 70-110 TESTED AT [address] (test awwa=6360) [place] [address] POCT-GLUCOSE [id number] 18:28:00 Test Item Value Reference Range Comments POC-GLUCOSE METER (BEAKER) 153 mg/dL 70-110 TESTED AT [address] (test zoli=9329) [place] [address] RAD, CHEST, 1 VIEW, NON [id number] 17:19:00Reason for exam:->post central lineShould this be [...] MDReport Verified Date/Time: 07/13/2018 17:19:17 Reading Location: [address] Ortho Consult Reading Room POCT-GLUCOSE [id number] 11:45:00 Test Item Value Reference Range Comments POC-GLUCOSE METER (BEAKER) 214 mg/dL 70-110 TESTED AT [address] (test fwik=4939) [place] [address] CT, [id number] 09:34:00NO PO or IV contrastFINAL REPORT CT [...] MDReport Verified Date/Time: 07/13/2018 09:34:48 Reading Location: [facility] B1 C013X Ortho Consult Reading Room POCT-GLUCOSE [id number] 06:40:00 Test Item Value Reference Range Comments POC-GLUCOSE METER (BEAKER) 189 mg/dL 70-110 TESTED AT [address] (test pbtc=4345) [facility] [address] RAD, CHEST, 1 VIEW, NON [id number] 01:21:00Reason for exam:->hypoxia, feverShould this be performed [...] left upper quadrant pigtail catheter. Signed: Meghan oMta MDReport Verified Date/Time: 07/13/2018 01:21:43 Reading Location: [address] Reading Room Electronically signed by: MEGHAN MOTA MD on 2018 01:21 AMRAD, CHEST, 1 VIEW, NON [id number] 00:42:00Reason for exam:-&gt ;tachycardiaShould this be performed [...] the left upper quadrant. Signed: Katie Darden MDReport Verified Date/Time: 07/13/2018 00:42:23 POCT-GLUCOSE [id number] 23:31:00 Test Item Value Reference Range Comments POC-GLUCOSE METER (BEAKER) 139 mg/dL 70-110 TESTED AT [address] (test vpgu=7430) [facility] [address] POCT-GLUCOSE [id number] 18:37:00 Test Item Value Reference Range Comments POC-GLUCOSE METER (BEAKER) 108 mg/dL 70-110 TESTED AT [address] (test ewyi=0336) [facility] [address] LACTIC ACID, [id number] 17:04:00 Test Item Value Reference Range Comments LACTATE BLOOD VENOUS (2) (BEAKER) (test 0.7 mmol/L 0.5-2.2 jmrd=9285) POCT-GLUCOSE [id number] 13:25:00 Test Item Value Reference Range Comments POC-GLUCOSE METER (BEAKER) 129 mg/dL 70-110 TESTED AT [address] (test ihfl=4221) [facility] [address] POCT-GLUCOSE [id number] 10:27:00 Test Item Value Reference Range Comments POC-GLUCOSE METER (BEAKER) 109 mg/dL 70-110 TESTED AT [address] (test qnce=5774) [facility] [address] LACTIC ACID, [id number] 07:03:00 Test Item Value Reference Range Comments LACTATE BLOOD VENOUS (2) 0.9 mmol/L 0.5-2.2 Specimen slightly hemolyzed (BEAKER) (test bsnd=6798) RAD, ABDOMEN/KUB, 1 VIEW [id number] 02:12:00Reason for exam:->UPRIGHT assess for perf; abdomoinal [...] Verified Date/ Time: 07/12/2018 02:12:57 POCT-LACTIC ACID, [id number] 02:11:00 Test Item Value Reference Range Comments POC-LACTIC ACID, VENOUS 1.5 mmol/L 0.9-1.7 TESTED AT [address] (BEAKER) (test uofc=4573) [place] [address] [id number] 02:11:00 Test Item Value Reference Range Comments POC-GLUCOSE (BEAKER) (test 106 mg/dL 70-110 TESTED AT [address] jpwb=1306) [place] [address] POCT-CALCIUM [id number] 02:11:00 Test Item Value Reference Range Comments POC-CALCIUM IONIZED (BEAKER) 1.15 mmol/L 1.12-1.27 TESTED AT [address] (test gapy=5890) [place] [address] [id number] 02:11:00 Test Item Value Reference Range Comments POC-HEMATOCRIT (BEAKER) (test 37 % 40-50 TESTED AT [address] qdlf=0908) [place] [address] [id number] 02:11:00 Test Item Value Reference Range Comments POC-HEMOGLOBIN (BEAKER) 12.6 g/dL 13.0-16.8 TESTED AT [address] (test gmty=3594) [place] [address]TESTED AT [place] [address] POCT-BLOOD GASES, [id number] 02:10:00 Test Item Value Reference Range Comments TEMP, CELSIUS-POC (BEAKER) 38.4 (test dlfh=2378) FIO2-POC (BEAKER) (test 21 TESTED AT [address] tfta=3402) [place] [address] PH, VENOUS-POC (BEAKER) 7.362 7.320-7.420 (test nilg=8076) PCO2, VENOUS-POC (BEAKER) 50.1 mm Hg 41.0-51.0 (test ygmo=9126) PO2, VENOUS-POC (BEAKER) 21.0 mm Hg 25.0-40.0 (test fwbr=0129) SO2, VENOUS-POC (BEAKER) 29.0 % 40.0-70.0 (test trvl=6864) HCO3, VENOUS-POC (BEAKER) 28.0 meq/L 21.0-29.0 (test hrxs=5843) BASE EXCESS, VENOUS-POC 3.0 meq/L -2.0-3.0 (BEAKER) (test ffrd=6157) [id number] 02:10:00 Test Item Value Reference Range Comments POC-SODIUM (BEAKER) (test 139 meq/L 135-148 TESTED AT [place] [address] [address] zaov=6886) [facility] [address] [id number] 02:10:00 Test Item Value Reference Range Comments POC-POTASSIUM (BEAKER) (test 3.7 meq/L 3.6-5.5 [address] way[address]3526) [facility] [address] HEPATIC FUNCTION [id number] 02:04:00 Test Item Value Reference Range Comments TOTAL PROTEIN (BEAKER) (test zwul=502) 6.2 gm/dL 6.0-8.3 ALBUMIN (BEAKER) (test pqht=7671) 2.7 g/dL 3.5-5.0 BILIRUBIN TOTAL (BEAKER) (test pane=726) 0.5 mg/dL 0.2-1.2 BILIRUBIN DIRECT (BEAKER) (test ccop=025) 0.3 mg/dL 0.1-0.5 ALKALINE PHOSPHATASE (BEAKER) (test zoxn=945) 86 U/L 40-150 AST (SGOT) (BEAKER) (test hbeo=797) 14 U/L 5-34 ALT (SGPT) (BEAKER) (test eqoi=942) 8 U/L 6-55 BASIC METABOLIC [id number] 02:04:00 Test Item Value Reference Range Comments SODIUM (BEAKER) (test 138 meq/L 136-145 qczg=506) POTASSIUM (BEAKER) (test 3.7 meq/L 3.5-5.1 gvbn=418) CHLORIDE (BEAKER) (test 107 meq/L 98-107 hbou=914) CO2 (BEAKER) (test 22 meq/L 22-29 svek=509) BLOOD UREA NITROGEN 3 mg/dL 7-21 (BEAKER) (test dipr=138) CREATININE (BEAKER) (test 0.74 mg/dL 0.57-1.25 glcv=166) GLUCOSE RANDOM (BEAKER) 133 mg/dL 70-105 (test lhnd=540) CALCIUM (BEAKER) (test 8.1 mg/dL 8.4-10.2 wpik=520) EGFR (BEAKER) (test 125 mL/min/1.73 sq m ESTIMATED GFR IS NOT brhj=2945) ACCURATE CREATININE CLEARANCE IN PREDICTING GLOMERULAR FILTRATION RATE. ESTIMATED GFR IS NOT APPLICABLE FOR DIALYSIS PATIENTS. CBC W/PLT COUNT & AUTO [id number] 02:03:00 Test Item Value Reference Range Comments WHITE BLOOD CELL COUNT (BEAKER) (test txmv=429) 10.8 K/ L 3.5-10.5 RED BLOOD CELL COUNT (BEAKER) (test ifkq=099) 4.07 M/ L 4.63-6.08 HEMOGLOBIN (BEAKER) (test qogj=806) 11.8 GM/DL 13.7-17.5 HEMATOCRIT (BEAKER) (test lmim=019) 37.3 % 40.1-51.0 MEAN CORPUSCULAR VOLUME (BEAKER) (test vsrc=049) 91.6 fL 79.0-92.2 MEAN CORPUSCULAR HEMOGLOBIN (BEAKER) (test 29.0 pg 25.7-32.2 kjgn=096) MEAN CORPUSCULAR HEMOGLOBIN CONC (BEAKER) (test 31.6 GM/DL 32.3-36.5 yezu=295) RED CELL DISTRIBUTION WIDTH (BEAKER) (test 13.8 % 11.6-14.4 unqd=690) PLATELET COUNT (BEAKER) (test rgzk=067) 295 K/CU MM 150-450 MEAN PLATELET VOLUME (BEAKER) (test tcml=483) 11.1 fL 9.4-12.4 NUCLEATED RED BLOOD CELLS (BEAKER) (test 0 /100 WBC 0-0 qihs=212) NEUTROPHILS RELATIVE PERCENT (BEAKER) (test 84 % wizu=714) LYMPHOCYTES RELATIVE PERCENT (BEAKER) (test 9 % wqze=614) MONOCYTES RELATIVE PERCENT (BEAKER) (test 6 % akwi=001) EOSINOPHILS RELATIVE PERCENT (BEAKER) (test 0 % esht=487) BASOPHILS RELATIVE PERCENT (BEAKER) (test 0 % zrog=277) NEUTROPHILS ABSOLUTE COUNT (BEAKER) (test 9.10 K/ L 1.78-5.38 sxrd=385) LYMPHOCYTES ABSOLUTE COUNT (BEAKER) (test 0.97 K/ L 1.32-3.57 iref=458) MONOCYTES ABSOLUTE COUNT (BEAKER) (test 0.68 K/ L 0.30-0.82 wkiy=110) EOSINOPHILS ABSOLUTE COUNT (BEAKER) (test 0.01 K/ L 0.04-0.54 iqik=899) BASOPHILS ABSOLUTE COUNT (BEAKER) (test 0.02 K/ L 0.01-0.08 dobx=224) IMMATURE GRANULOCYTES-RELATIVE PERCENT (BEAKER) 0 % 0-1 (test jpwa=7878) POCT-GLUCOSE [id number] 00:17:00 Test Item Value Reference Range Comments POC-GLUCOSE METER (BEAKER) 137 mg/dL 70-110 TESTED AT [address] (test mniv=3783) [place] [address] POCT-GLUCOSE [id number] 18:14:00 Test Item Value Reference Range Comments POC-GLUCOSE METER (BEAKER) 106 mg/dL 70-110 TESTED AT [address] (test oixl=7929) [place] [address] VANCOMYCIN LEVEL, [id number] 14:20:00 Test Item Value Reference Range Comments VANCOMYCIN TROUGH (BEAKER) (test qkmg=371) 7.1 ug/mL 10.0-20.0 If vancomycin trough level > 20 mcg/mL, hold next vancomycin dose, and contact MD and pharmacist.POCT-GLUCOSE [id number] 13:10:00 Test Item Value Reference Range Comments POC-GLUCOSE METER (BEAKER) 155 mg/dL 70-110 TESTED AT [address] (test izsf=8682) [place] [address] HEPATIC FUNCTION [id number] 06:51:00 Test Item Value Reference Range Comments TOTAL PROTEIN (BEAKER) (test rgsc=869) 6.5 gm/dL 6.0-8.3 ALBUMIN (BEAKER) (test svbk=2629) 2.9 g/dL 3.5-5.0 BILIRUBIN TOTAL (BEAKER) (test jbcg=330) 0.4 mg/dL 0.2-1.2 BILIRUBIN DIRECT (BEAKER) (test mkre=792) 0.2 mg/dL 0.1-0.5 ALKALINE PHOSPHATASE (BEAKER) (test qadx=778) 94 U/L 40-150 AST (SGOT) (BEAKER) (test ijmf=274) 14 U/L 5-34 ALT (SGPT) (BEAKER) (test epdr=581) 11 U/L 6-55 BASIC METABOLIC [id number] 06:51:00 Test Item Value Reference Range Comments SODIUM (BEAKER) (test 138 meq/L 136-145 zwfw=373) POTASSIUM (BEAKER) (test 3.6 meq/L 3.5-5.1 kzgz=890) CHLORIDE (BEAKER) (test 106 meq/L 98-107 rcci=124) CO2 (BEAKER) (test 24 meq/L 22-29 hvij=721) BLOOD UREA NITROGEN 3 mg/dL 7-21 (BEAKER) (test hlmc=137) CREATININE (BEAKER) (test 0.68 mg/dL 0.57-1.25 chvg=489) GLUCOSE RANDOM (BEAKER) 96 mg/dL 70-105 (test wbcw=997) CALCIUM (BEAKER) (test 8.2 mg/dL 8.4-10.2 axsb=528) EGFR (BEAKER) (test 138 mL/min/1.73 sq m ESTIMATED GFR IS NOT ybml=8311) ACCURATE CREATININE CLEARANCE IN PREDICTING GLOMERULAR FILTRATION RATE. ESTIMATED GFR IS NOT APPLICABLE FOR DIALYSIS PATIENTS. CBC W/PLT COUNT & AUTO [id number] 05:32:00 Test Item Value Reference Range Comments WHITE BLOOD CELL COUNT (BEAKER) (test xyqi=975) 6.7 K/ L 3.5-10.5 RED BLOOD CELL COUNT (BEAKER) (test hpea=316) 4.03 M/ L 4.63-6.08 HEMOGLOBIN (BEAKER) (test xpys=358) 11.6 GM/DL 13.7-17.5 HEMATOCRIT (BEAKER) (test zvxj=187) 36.9 % 40.1-51.0 MEAN CORPUSCULAR VOLUME (BEAKER) (test xzok=812) 91.6 fL 79.0-92.2 MEAN CORPUSCULAR HEMOGLOBIN (BEAKER) (test 28.8 pg 25.7-32.2 xzlk=975) MEAN CORPUSCULAR HEMOGLOBIN CONC (BEAKER) (test 31.4 GM/DL 32.3-36.5 dfrn=791) RED CELL DISTRIBUTION WIDTH (BEAKER) (test 13.7 % 11.6-14.4 oube=121) PLATELET COUNT (BEAKER) (test ompz=477) 298 K/CU MM 150-450 MEAN PLATELET VOLUME (BEAKER) (test egaq=791) 10.6 fL 9.4-12.4 NUCLEATED RED BLOOD CELLS (BEAKER) (test 0 /100 WBC 0-0 zlzf=265) NEUTROPHILS RELATIVE PERCENT (BEAKER) (test 67 % imtz=609) LYMPHOCYTES RELATIVE PERCENT (BEAKER) (test 20 % oahk=150) MONOCYTES RELATIVE PERCENT (BEAKER) (test 7 % tfqm=092) EOSINOPHILS RELATIVE PERCENT (BEAKER) (test 4 % lxuw=995) BASOPHILS RELATIVE PERCENT (BEAKER) (test 0 % asga=077) NEUTROPHILS ABSOLUTE COUNT (BEAKER) (test 4.52 K/ L 1.78-5.38 fntf=879) LYMPHOCYTES ABSOLUTE COUNT (BEAKER) (test 1.35 K/ L 1.32-3.57 gwuj=561) MONOCYTES ABSOLUTE COUNT (BEAKER) (test 0.50 K/ L 0.30-0.82 veju=647) EOSINOPHILS ABSOLUTE COUNT (BEAKER) (test 0.29 K/ L 0.04-0.54 cmyv=823) BASOPHILS ABSOLUTE COUNT (BEAKER) (test 0.03 K/ L 0.01-0.08 aadd=960) IMMATURE GRANULOCYTES-RELATIVE PERCENT (BEAKER) 0 % 0-1 (test nnsh=8861) [id number] 11:08:00 Test Item Value Reference Range Comments PARTIAL THROMBOPLASTIN TIME (BEAKER) (test 47.0 seconds 22.5-36.0 hwjr=847) PROTHROMBIN TIME/[id number] 11:07:00 Test Item Value Reference Range Comments PROTIME (BEAKER) (test idea=018) 16.1 seconds 11.9-14.2 INR (BEAKER) (test bnee=741) 1.4 <=5.9 Effective 07/03/2018: PT Reference Range ChangeNew: 11.9-14.2 Previous: 11.7- 14.7RECOMMENDED COUMADIN/WARFARIN INR THERAPY RANGESSTANDARD DOSE: 2.0-3.0 Includes: PROPHYLAXIS for venous thrombosis, systemic embolization; TREATMENT for venous thrombosis and/or pulmonary embolus.HIGH RISK: Target INR is2.5-3.5 for patients wiht mechanical heart valves.HEPATIC FUNCTION [id number] 01:46 :00 Test Item Value Reference Range Comments TOTAL PROTEIN (BEAKER) (test krwh=315) 6.6 gm/dL 6.0-8.3 ALBUMIN (BEAKER) (test ggvv=9467) 3.0 g/dL 3.5-5.0 BILIRUBIN TOTAL (BEAKER) (test pqar=082) 0.5 mg/dL 0.2-1.2 BILIRUBIN DIRECT (BEAKER) (test nlaf=320) 0.3 mg/dL 0.1-0.5 ALKALINE PHOSPHATASE (BEAKER) (test tytl=165) 97 U/L 40-150 AST (SGOT) (BEAKER) (test wffd=523) 24 U/L 5-34 ALT (SGPT) (BEAKER) (test ublx=813) 16 U/L 6-55 BASIC METABOLIC [id number] 01:46:00 Test Item Value Reference Range Comments SODIUM (BEAKER) (test 139 meq/L 136-145 stdo=178) POTASSIUM (BEAKER) (test 3.7 meq/L 3.5-5.1 cpxx=816) CHLORIDE (BEAKER) (test 107 meq/L 98-107 ibwr=567) CO2 (BEAKER) (test 24 meq/L 22-29 vtpp=773) BLOOD UREA NITROGEN 3 mg/dL 7-21 (BEAKER) (test mkbk=983) CREATININE (BEAKER) (test 0.68 mg/dL 0.57-1.25 htxk=370) GLUCOSE RANDOM (BEAKER) 90 mg/dL 70-105 (test ftau=097) CALCIUM (BEAKER) (test 8.6 mg/dL 8.4-10.2 qxld=456) EGFR (BEAKER) (test 138 mL/min/1.73 sq m ESTIMATED GFR IS NOT eshy=0718) ACCURATE CREATININE CLEARANCE IN PREDICTING GLOMERULAR FILTRATION RATE. ESTIMATED GFR IS NOT APPLICABLE FOR DIALYSIS PATIENTS. CBC W/PLT COUNT & AUTO [id number] 01:19:00 Test Item Value Reference Range Comments WHITE BLOOD CELL COUNT (BEAKER) (test buvk=207) 9.9 K/ L 3.5-10.5 RED BLOOD CELL COUNT (BEAKER) (test gxaf=485) 4.00 M/ L 4.63-6.08 HEMOGLOBIN (BEAKER) (test iiud=662) 11.7 GM/DL 13.7-17.5 HEMATOCRIT (BEAKER) (test usny=296) 36.1 % 40.1-51.0 MEAN CORPUSCULAR VOLUME (BEAKER) (test huxh=016) 90.3 fL 79.0-92.2 MEAN CORPUSCULAR HEMOGLOBIN (BEAKER) (test 29.3 pg 25.7-32.2 aqoo=421) MEAN CORPUSCULAR HEMOGLOBIN CONC (BEAKER) (test 32.4 GM/DL 32.3-36.5 zame=335) RED CELL DISTRIBUTION WIDTH (BEAKER) (test 13.5 % 11.6-14.4 hgav=828) PLATELET COUNT (BEAKER) (test sixv=446) 298 K/CU MM 150-450 MEAN PLATELET VOLUME (BEAKER) (test oigt=405) 10.8 fL 9.4-12.4 NUCLEATED RED BLOOD CELLS (BEAKER) (test 0 /100 WBC 0-0 jkcm=345) NEUTROPHILS RELATIVE PERCENT (BEAKER) (test 71 % lthj=712) LYMPHOCYTES RELATIVE PERCENT (BEAKER) (test 17 % daik=420) MONOCYTES RELATIVE PERCENT (BEAKER) (test 8 % nyrn=037) EOSINOPHILS RELATIVE PERCENT (BEAKER) (test 3 % vkcz=727) BASOPHILS RELATIVE PERCENT (BEAKER) (test 1 % lhlp=893) NEUTROPHILS ABSOLUTE COUNT (BEAKER) (test 7.08 K/ L 1.78-5.38 uxvo=035) LYMPHOCYTES ABSOLUTE COUNT (BEAKER) (test 1.69 K/ L 1.32-3.57 rcge=646) MONOCYTES ABSOLUTE COUNT (BEAKER) (test 0.76 K/ L 0.30-0.82 xbye=111) EOSINOPHILS ABSOLUTE COUNT (BEAKER) (test 0.32 K/ L 0.04-0.54 pexu=794) BASOPHILS ABSOLUTE COUNT (BEAKER) (test 0.05 K/ L 0.01-0.08 qrln=782) IMMATURE GRANULOCYTES-RELATIVE PERCENT (BEAKER) 0 % 0-1 (test dcim=8670) BETA-2 GLYCOPROTEIN [id number] 08:02:00 Test Item Value Reference Range Comments B2 GLYCOPROTEIN AUTOVERIFICATION Refer to individual COMPONENT (test dqpv=7121) B2-Glycoprotein IgG, IgM and IgA results. [id number] 07:34:00 Test Item Value Reference Range Comments MAGNESIUM (BEAKER) (test rgeo=749) 1.6 mg/dL 1.6-2.6 BASIC METABOLIC [id number] 07:34:00 Test Item Value Reference Range Comments SODIUM (BEAKER) (test 138 meq/L 136-145 djva=210) POTASSIUM (BEAKER) (test 4.4 meq/L 3.5-5.1 plie=150) CHLORIDE (BEAKER) (test 102 meq/L 98-107 iigt=425) CO2 (BEAKER) (test 24 meq/L 22-29 unsx=098) BLOOD UREA NITROGEN 7 mg/dL 7-21 (BEAKER) (test jpjc=160) CREATININE (BEAKER) (test 0.80 mg/dL 0.57-1.25 hson=377) GLUCOSE RANDOM (BEAKER) 93 mg/dL 70-105 (test bxsa=918) CALCIUM (BEAKER) (test 9.6 mg/dL 8.4-10.2 yixa=977) EGFR (BEAKER) (test 114 mL/min/1.73 sq m ESTIMATED GFR IS NOT loii=3152) ACCURATE CREATININE CLEARANCE IN PREDICTING GLOMERULAR FILTRATION RATE. ESTIMATED GFR IS NOT APPLICABLE FOR DIALYSIS PATIENTS. HEPATIC FUNCTION [id number] 07:34:00 Test Item Value Reference Range Comments TOTAL PROTEIN (BEAKER) (test zbog=456) 7.6 gm/dL 6.0-8.3 ALBUMIN (BEAKER) (test leda=1301) 3.3 g/dL 3.5-5.0 BILIRUBIN TOTAL (BEAKER) (test lead=105) 0.7 mg/dL 0.2-1.2 BILIRUBIN DIRECT (BEAKER) (test ruqs=353) 0.5 mg/dL 0.1-0.5 ALKALINE PHOSPHATASE (BEAKER) (test qsai=706) 105 U/L 40-150 AST (SGOT) (BEAKER) (test wjza=803) 38 U/L 5-34 ALT (SGPT) (BEAKER) (test pknj=158) 41 U/L 6-55 [id number] 07:23:00 Test Item Value Reference Range Comments PROTIME (BEAKER) (test iexm=347) 14.8 seconds 11.7-14.7 INR (BEAKER) (test btzf=420) 1.2 <=5.9 PARTIAL THROMBOPLASTIN TIME (BEAKER) (test 33.8 seconds 22.5-36.0 kszq=421) RECOMMENDED COUMADIN/WARFARIN INR THERAPY RANGESSTANDARD DOSE: 2.0 - 3.0 Includes: PROPHYLAXIS forvenous thrombosis, systemic embolization; TREATMENT for venous thrombosis and/or pulmonary embolus.HIGH RISK: Target INR is 2.5-3.5 for patients with mechanical heart valves.CBC W/PLT COUNT & AUTO [id number] 07:19:00 Test Item Value Reference Range Comments WHITE BLOOD CELL COUNT (BEAKER) (test pnud=781) 11.2 K/ L 3.5-10.5 RED BLOOD CELL COUNT (BEAKER) (test jpvn=545) 4.39 M/ L 4.63-6.08 HEMOGLOBIN (BEAKER) (test tspo=717) 12.7 GM/DL 13.7-17.5 HEMATOCRIT (BEAKER) (test zhfs=313) 40.5 % 40.1-51.0 MEAN CORPUSCULAR VOLUME (BEAKER) (test isdm=534) 92.3 fL 79.0-92.2 MEAN CORPUSCULAR HEMOGLOBIN (BEAKER) (test 28.9 pg 25.7-32.2 exol=560) MEAN CORPUSCULAR HEMOGLOBIN CONC (BEAKER) (test 31.4 GM/DL 32.3-36.5 ulsa=407) RED CELL DISTRIBUTION WIDTH (BEAKER) (test 13.4 % 11.6-14.4 zlwf=035) PLATELET COUNT (BEAKER) (test lacu=242) 570 K/CU MM 150-450 MEAN PLATELET VOLUME (BEAKER) (test cwgn=014) 10.5 fL 9.4-12.4 NUCLEATED RED BLOOD CELLS (BEAKER) (test 0 /100 WBC 0-0 hqyu=637) NEUTROPHILS RELATIVE PERCENT (BEAKER) (test 64 % rusc=546) LYMPHOCYTES RELATIVE PERCENT (BEAKER) (test 20 % mqbq=133) MONOCYTES RELATIVE PERCENT (BEAKER) (test 9 % hfoy=518) EOSINOPHILS RELATIVE PERCENT (BEAKER) (test 5 % rlpg=745) BASOPHILS RELATIVE PERCENT (BEAKER) (test 1 % blrs=832) NEUTROPHILS ABSOLUTE COUNT (BEAKER) (test 7.13 K/ L 1.78-5.38 domn=001) LYMPHOCYTES ABSOLUTE COUNT (BEAKER) (test 2.20 K/ L 1.32-3.57 viis=378) MONOCYTES ABSOLUTE COUNT (BEAKER) (test 0.95 K/ L 0.30-0.82 ijyc=916) EOSINOPHILS ABSOLUTE COUNT (BEAKER) (test 0.59 K/ L 0.04-0.54 xalb=905) BASOPHILS ABSOLUTE COUNT (BEAKER) (test 0.14 K/ L 0.01-0.08 hlde=135) IMMATURE GRANULOCYTES-RELATIVE PERCENT (BEAKER) 2 % 0-1 (test ilmw=1196) LUPUS ANTICOAGULANT SCREEN WITH REFLEX TO [id number] 09:29:00 Test Item Value Reference Range Comments DRVV SCREEN RATIO (BEAKER) 1.39 <1.20 (test fvnr=2193) DRVV CONFIRM RATIO (test 1.21 sshb=4865) DRVV INTERPRETATION (BEAKER) Positive screen for Lupus (test owib=1366) Anticoagulant with hexagonal phospholipid confirmation. Suggest repeat testing in 12 weeks and when patient not receiving anticoagulant therapy. PROTIME (BEAKER) (test 19.6 seconds 11.7-14.7 gjbm=537) INR (BEAKER) (test pfre=748) 1.7 <=5.9 PARTIAL THROMBOPLASTIN TIME 57.5 seconds 22.5-36.0 (BEAKER) (test wbwq=562) PTT-LA (BEAKER) (test 61.5 32.0-41.8 qyvt=[id number]) TMEB-FXDHUNDFKTK-964 (BEAKER) Christy Smith MD (test wdam=2854) (electronic signature) [id number] 08:06:00 Test Item Value Reference Range Comments MAGNESIUM (BEAKER) (test ijkg=182) 1.7 mg/dL 1.6-2.6 BASIC METABOLIC [id number] 08:06:00 Test Item Value Reference Range Comments SODIUM (BEAKER) (test 135 meq/L 136-145 mnir=080) POTASSIUM (BEAKER) (test 4.1 meq/L 3.5-5.1 xekr=491) CHLORIDE (BEAKER) (test 101 meq/L 98-107 qyoh=110) CO2 (BEAKER) (test 24 meq/L 22-29 wyzz=228) BLOOD UREA NITROGEN 6 mg/dL 7-21 (BEAKER) (test odzf=979) CREATININE (BEAKER) (test 0.81 mg/dL 0.57-1.25 pwvh=496) GLUCOSE RANDOM (BEAKER) 101 mg/dL 70-105 (test eqgk=307) CALCIUM (BEAKER) (test 9.3 mg/dL 8.4-10.2 pnnu=316) EGFR (BEAKER) (test 113 mL/min/1.73 sq m ESTIMATED GFR IS NOT dovg=5244) ACCURATE CREATININE CLEARANCE IN PREDICTING GLOMERULAR FILTRATION RATE. ESTIMATED GFR IS NOT APPLICABLE FOR DIALYSIS PATIENTS. HEPATIC FUNCTION [id number] 08:06:00 Test Item Value Reference Range Comments TOTAL PROTEIN (BEAKER) (test zkxq=570) 7.6 gm/dL 6.0-8.3 ALBUMIN (BEAKER) (test bnof=0378) 3.2 g/dL 3.5-5.0 BILIRUBIN TOTAL (BEAKER) (test kepe=339) 0.7 mg/dL 0.2-1.2 BILIRUBIN DIRECT (BEAKER) (test kvgd=689) 0.5 mg/dL 0.1-0.5 ALKALINE PHOSPHATASE (BEAKER) (test lczd=484) 108 U/L 40-150 AST (SGOT) (BEAKER) (test hesa=409) 37 U/L 5-34 ALT (SGPT) (BEAKER) (test vvbf=022) 39 U/L 6-55 CBC W/PLT COUNT & AUTO [id number] 07:58:00 Test Item Value Reference Range Comments WHITE BLOOD CELL COUNT (BEAKER) (test tagv=254) 12.1 K/ L 3.5-10.5 RED BLOOD CELL COUNT (BEAKER) (test srcs=899) 4.28 M/ L 4.63-6.08 HEMOGLOBIN (BEAKER) (test afln=325) 12.3 GM/DL 13.7-17.5 HEMATOCRIT (BEAKER) (test bnee=223) 38.9 % 40.1-51.0 MEAN CORPUSCULAR VOLUME (BEAKER) (test qqud=954) 90.9 fL 79.0-92.2 MEAN CORPUSCULAR HEMOGLOBIN (BEAKER) (test 28.7 pg 25.7-32.2 qtor=247) MEAN CORPUSCULAR HEMOGLOBIN CONC (BEAKER) (test 31.6 GM/DL 32.3-36.5 xoaf=864) RED CELL DISTRIBUTION WIDTH (BEAKER) (test 13.3 % 11.6-14.4 xnap=298) PLATELET COUNT (BEAKER) (test jhnq=765) 624 K/CU MM 150-450 MEAN PLATELET VOLUME (BEAKER) (test tktk=954) 10.4 fL 9.4-12.4 NUCLEATED RED BLOOD CELLS (BEAKER) (test 0 /100 WBC 0-0 vuha=720) NEUTROPHILS RELATIVE PERCENT (BEAKER) (test 66 % gwtm=405) LYMPHOCYTES RELATIVE PERCENT (BEAKER) (test 18 % qdyf=697) MONOCYTES RELATIVE PERCENT (BEAKER) (test 9 % xzak=613) EOSINOPHILS RELATIVE PERCENT (BEAKER) (test 5 % pjaz=640) BASOPHILS RELATIVE PERCENT (BEAKER) (test 1 % cnfw=340) NEUTROPHILS ABSOLUTE COUNT (BEAKER) (test 7.94 K/ L 1.78-5.38 gidr=237) LYMPHOCYTES ABSOLUTE COUNT (BEAKER) (test 2.11 K/ L 1.32-3.57 rrjk=129) MONOCYTES ABSOLUTE COUNT (BEAKER) (test 1.13 K/ L 0.30-0.82 rome=445) EOSINOPHILS ABSOLUTE COUNT (BEAKER) (test 0.60 K/ L 0.04-0.54 rubr=234) BASOPHILS ABSOLUTE COUNT (BEAKER) (test 0.15 K/ L 0.01-0.08 uvut=884) IMMATURE GRANULOCYTES-RELATIVE PERCENT (BEAKER) 1 % 0-1 (test lxos=7513) PROTHROMBIN [id number] 07:26:00 Test Item Value Reference Range Comments PROTIME (BEAKER) (test nczt=463) 14.5 seconds 11.7-14.7 INR (BEAKER) (test jhwv=526) 1.2 <=5.9 RECOMMENDED COUMADIN/WARFARIN INR THERAPY RANGESSTANDARD DOSE: 2.0 - 3.0 Includes: PROPHYLAXIS forvenous thrombosis, systemic embolization; TREATMENT for venous thrombosis and/or pulmonary embolus.HIGH RISK: Target INR is 2.5-3.5 for patients with mechanical heart valves.PT/[id number] 07:26:00 Test Item Value Reference Range Comments PROTIME (BEAKER) (test rlgb=810) 14.5 seconds 11.7-14.7 INR (BEAKER) (test oasv=234) 1.2 <=5.9 PARTIAL THROMBOPLASTIN TIME (BEAKER) (test 38.9 seconds 22.5-36.0 paxg=425) RECOMMENDED COUMADIN/WARFARIN INR THERAPY RANGESSTANDARD DOSE: 2.0 - 3.0 Includes: PROPHYLAXIS forvenous thrombosis, systemic embolization; TREATMENT for venous thrombosis and/or pulmonary embolus.HIGH RISK: Target INR is 2.5-3.5 for patients with mechanical heart valves.HEXAGONAL [id number] 14:07 :00 Test Item Value Reference Range Comments HEXAGONAL PHOSPHOLIPID (BEAKER) (test nokh=7640) Positive 1:1 MIXING STUDY, INM-[id number] 09:07:00 Test Item Value Reference Range Comments PROTIME (BEAKER) (test dims=697) 19.6 seconds 11.7-14.7 PARTIAL THROMBOPLASTIN TIME (BEAKER) (test 57.5 seconds 22.5-36.0 crqi=355) PT 1/1 MIX (BEAKER) (test wmie=9988) 14.4 SECS 11.7-14.7 PTT 1/1 MIX (BEAKER) (test rggj=8137) 41.9 SECS 22.5-36.0 PT/[id number] 07:05:00 Test Item Value Reference Range Comments PROTIME (BEAKER) (test irvr=344) 16.9 seconds 11.7-14.7 INR (BEAKER) (test gbyx=531) 1.4 <=5.9 PARTIAL THROMBOPLASTIN TIME (BEAKER) (test 43.7 seconds 22.5-36.0 cmmj=399) RECOMMENDED COUMADIN/WARFARIN INR THERAPY RANGESSTANDARD DOSE: 2.0 - 3.0 Includes: PROPHYLAXIS forvenous thrombosis, systemic embolization; TREATMENT for venous thrombosis and/or pulmonary embolus.HIGH RISK: Target INR is 2.5-3.5 for patients with mechanical heart valves.PROTHROMBIN [id number] 07:04: 00 Test Item Value Reference Range Comments PROTIME (BEAKER) (test sfqv=011) 16.9 seconds 11.7-14.7 INR (BEAKER) (test yqiq=318) 1.4 <=5.9 RECOMMENDED COUMADIN/WARFARIN INR THERAPY RANGESSTANDARD DOSE: 2.0 - 3.0 Includes: PROPHYLAXIS forvenous thrombosis, systemic embolization; TREATMENT for venous thrombosis and/or pulmonary embolus.HIGH RISK: Target INR is 2.5-3.5 for patients with mechanical heart valves.[id number] 06:49:00 Test Item Value Reference Range Comments MAGNESIUM (BEAKER) (test nnau=226) 1.7 mg/dL 1.6-2.6 BASIC METABOLIC [id number] 06:49:00 Test Item Value Reference Range Comments SODIUM (BEAKER) (test 135 meq/L 136-145 dsfl=654) POTASSIUM (BEAKER) (test 4.2 meq/L 3.5-5.1 bebu=117) CHLORIDE (BEAKER) (test 101 meq/L 98-107 aahc=353) CO2 (BEAKER) (test 25 meq/L 22-29 xqbx=245) BLOOD UREA NITROGEN 6 mg/dL 7-21 (BEAKER) (test jati=356) CREATININE (BEAKER) (test 0.73 mg/dL 0.57-1.25 ilgl=059) GLUCOSE RANDOM (BEAKER) 96 mg/dL 70-105 (test kfdv=580) CALCIUM (BEAKER) (test 9.0 mg/dL 8.4-10.2 xcpb=691) EGFR (BEAKER) (test 127 mL/min/1.73 sq m ESTIMATED GFR IS NOT ahhr=8903) ACCURATE CREATININE CLEARANCE IN PREDICTING GLOMERULAR FILTRATION RATE. ESTIMATED GFR IS NOT APPLICABLE FOR DIALYSIS PATIENTS. HEPATIC FUNCTION [id number] 06:49:00 Test Item Value Reference Range Comments TOTAL PROTEIN (BEAKER) (test idif=204) 7.3 gm/dL 6.0-8.3 ALBUMIN (BEAKER) (test jmnv=3165) 3.0 g/dL 3.5-5.0 BILIRUBIN TOTAL (BEAKER) (test lvev=303) 0.8 mg/dL 0.2-1.2 BILIRUBIN DIRECT (BEAKER) (test pjzx=472) 0.5 mg/dL 0.1-0.5 ALKALINE PHOSPHATASE (BEAKER) (test ehyu=008) 108 U/L 40-150 AST (SGOT) (BEAKER) (test kidc=794) 40 U/L 5-34 ALT (SGPT) (BEAKER) (test tkfc=029) 42 U/L 6-55 CBC W/PLT COUNT & AUTO [id number] 06:36:00 Test Item Value Reference Range Comments WHITE BLOOD CELL COUNT (BEAKER) (test cvod=053) 10.1 K/ L 3.5-10.5 RED BLOOD CELL COUNT (BEAKER) (test ddgq=777) 4.19 M/ L 4.63-6.08 HEMOGLOBIN (BEAKER) (test fkia=838) 12.1 GM/DL 13.7-17.5 HEMATOCRIT (BEAKER) (test wkmu=943) 38.7 % 40.1-51.0 MEAN CORPUSCULAR VOLUME (BEAKER) (test atum=162) 92.4 fL 79.0-92.2 MEAN CORPUSCULAR HEMOGLOBIN (BEAKER) (test 28.9 pg 25.7-32.2 xcsp=821) MEAN CORPUSCULAR HEMOGLOBIN CONC (BEAKER) (test 31.3 GM/DL 32.3-36.5 tymq=267) RED CELL DISTRIBUTION WIDTH (BEAKER) (test 13.3 % 11.6-14.4 ljsj=969) PLATELET COUNT (BEAKER) (test ogcm=158) 582 K/CU MM 150-450 MEAN PLATELET VOLUME (BEAKER) (test dgzt=730) 10.7 fL 9.4-12.4 NUCLEATED RED BLOOD CELLS (BEAKER) (test 0 /100 WBC 0-0 oumm=625) NEUTROPHILS RELATIVE PERCENT (BEAKER) (test 66 % pbsz=374) LYMPHOCYTES RELATIVE PERCENT (BEAKER) (test 18 % vuxb=488) MONOCYTES RELATIVE PERCENT (BEAKER) (test 8 % hkkw=891) EOSINOPHILS RELATIVE PERCENT (BEAKER) (test 5 % vujg=416) BASOPHILS RELATIVE PERCENT (BEAKER) (test 1 % odzm=265) NEUTROPHILS ABSOLUTE COUNT (BEAKER) (test 6.68 K/ L 1.78-5.38 ehud=245) LYMPHOCYTES ABSOLUTE COUNT (BEAKER) (test 1.80 K/ L 1.32-3.57 joqn=524) MONOCYTES ABSOLUTE COUNT (BEAKER) (test 0.81 K/ L 0.30-0.82 gxds=448) EOSINOPHILS ABSOLUTE COUNT (BEAKER) (test 0.52 K/ L 0.04-0.54 uvtq=784) BASOPHILS ABSOLUTE COUNT (BEAKER) (test 0.11 K/ L 0.01-0.08 iqkm=607) IMMATURE GRANULOCYTES-RELATIVE PERCENT (BEAKER) 1 % 0-1 (test zxsn=5185) CARDIOLIPIN ANTIBODIES, IGG AND [id number] 06:24:00 Test Item Value Reference Range Comments ANTICARDIOLIPIN IGG ANTIBODY (BEAKER) (test < GPL <20.0 vxzd=330) ANTICARDIOLIPIN IGM ANTIBODY (BEAKER) (test 0.2 MPL <20.0 fxtn=013) Anticardiolipin IgG Result Interpretation: <20.0 GPL Normal>/=20.0 GPL PositiveAnticardiolipin IgM Result Interpretation: <20.0 MPL Normal>/= 20.0 MPL PositiveTHROMBIN [id number] 13:45:00 Test Item Value Reference Range Comments THROMBIN TIME (BEAKER) (test sxkq=552) 17.2 secs 13.8-20.0 [id number] 12:46:00 Test Item Value Reference Range Comments FIBRINOGEN LEVEL (BEAKER) (test sita=093) 762 mg/dl 225-434 [id number] 10:48:00 Test Item Value Reference Range Comments MAGNESIUM (BEAKER) (test muaz=454) 1.7 mg/dL 1.6-2.6 BASIC METABOLIC [id number] 10:48:00 Test Item Value Reference Range Comments SODIUM (BEAKER) (test 139 meq/L 136-145 wbfh=295) POTASSIUM (BEAKER) (test 4.2 meq/L 3.5-5.1 zwof=688) CHLORIDE (BEAKER) (test 102 meq/L 98-107 pvhq=936) CO2 (BEAKER) (test 26 meq/L 22-29 kqhr=692) BLOOD UREA NITROGEN 6 mg/dL 7-21 (BEAKER) (test pupi=476) CREATININE (BEAKER) (test 0.75 mg/dL 0.57-1.25 xvvp=268) GLUCOSE RANDOM (BEAKER) 160 mg/dL 70-105 (test pdio=569) CALCIUM (BEAKER) (test 9.3 mg/dL 8.4-10.2 kjqv=492) EGFR (BEAKER) (test 123 mL/min/1.73 sq m ESTIMATED GFR IS NOT ijrc=4370) ACCURATE CREATININE CLEARANCE IN PREDICTING GLOMERULAR FILTRATION RATE. ESTIMATED GFR IS NOT APPLICABLE FOR DIALYSIS PATIENTS. HEPATIC FUNCTION [id number] 10:48:00 Test Item Value Reference Range Comments TOTAL PROTEIN (BEAKER) (test argi=330) 7.3 gm/dL 6.0-8.3 ALBUMIN (BEAKER) (test nxbd=7543) 3.0 g/dL 3.5-5.0 BILIRUBIN TOTAL (BEAKER) (test dzhg=766) 0.7 mg/dL 0.2-1.2 BILIRUBIN DIRECT (BEAKER) (test aitg=225) 0.5 mg/dL 0.1-0.5 ALKALINE PHOSPHATASE (BEAKER) (test ombu=072) 112 U/L 40-150 AST (SGOT) (BEAKER) (test ppdx=840) 47 U/L 5-34 ALT (SGPT) (BEAKER) (test ynxt=245) 50 U/L 6-55 PT/[id number] 06:40:00 Test Item Value Reference Range Comments PROTIME (BEAKER) (test sdwa=027) 18.8 seconds 11.7-14.7 INR (BEAKER) (test smou=922) 1.7 <=5.9 PARTIAL THROMBOPLASTIN TIME (BEAKER) (test 52.3 seconds 22.5-36.0 alsq=819) RECOMMENDED COUMADIN/WARFARIN INR THERAPY RANGESSTANDARD DOSE: 2.0 - 3.0 Includes: PROPHYLAXIS forvenous thrombosis, systemic embolization; TREATMENT for venous thrombosis and/or pulmonary embolus.HIGH RISK: Target INR is 2.5-3.5 for patients with mechanical heart valves.PROTHROMBIN TIME/[id number] 06:39: 00 Test Item Value Reference Range Comments PROTIME (BEAKER) (test rfeq=200) 18.8 seconds 11.7-14.7 INR (BEAKER) (test zvui=882) 1.7 <=5.9 RECOMMENDED COUMADIN/WARFARIN INR THERAPY RANGESSTANDARD DOSE: 2.0 - 3.0 Includes: PROPHYLAXIS forvenous thrombosis, systemic embolization; TREATMENT for venous thrombosis and/or pulmonary embolus.HIGH RISK: Target INR is 2.5-3.5 for patients with mechanical heart valves.CBC W/PLT COUNT & AUTO [id number] 06:34:00 Test Item Value Reference Range Comments WHITE BLOOD CELL COUNT (BEAKER) (test bwvg=375) 9.3 K/ L 3.5-10.5 RED BLOOD CELL COUNT (BEAKER) (test kekc=942) 3.78 M/ L 4.63-6.08 HEMOGLOBIN (BEAKER) (test qywp=722) 11.0 GM/DL 13.7-17.5 HEMATOCRIT (BEAKER) (test udmf=883) 35.0 % 40.1-51.0 MEAN CORPUSCULAR VOLUME (BEAKER) (test ycsl=951) 92.6 fL 79.0-92.2 MEAN CORPUSCULAR HEMOGLOBIN (BEAKER) (test 29.1 pg 25.7-32.2 gbcp=883) MEAN CORPUSCULAR HEMOGLOBIN CONC (BEAKER) (test 31.4 GM/DL 32.3-36.5 fyah=636) RED CELL DISTRIBUTION WIDTH (BEAKER) (test 13.5 % 11.6-14.4 xjvm=637) PLATELET COUNT (BEAKER) (test eess=622) 517 K/CU MM 150-450 MEAN PLATELET VOLUME (BEAKER) (test ifmd=095) 10.5 fL 9.4-12.4 NUCLEATED RED BLOOD CELLS (BEAKER) (test 0 /100 WBC 0-0 bgrz=623) NEUTROPHILS RELATIVE PERCENT (BEAKER) (test 64 % pqks=898) LYMPHOCYTES RELATIVE PERCENT (BEAKER) (test 20 % xcpi=510) MONOCYTES RELATIVE PERCENT (BEAKER) (test 9 % mdly=215) EOSINOPHILS RELATIVE PERCENT (BEAKER) (test 6 % asir=351) BASOPHILS RELATIVE PERCENT (BEAKER) (test 1 % ckpy=290) NEUTROPHILS ABSOLUTE COUNT (BEAKER) (test 5.90 K/ L 1.78-5.38 hrzq=283) LYMPHOCYTES ABSOLUTE COUNT (BEAKER) (test 1.84 K/ L 1.32-3.57 dsgu=764) MONOCYTES ABSOLUTE COUNT (BEAKER) (test 0.82 K/ L 0.30-0.82 smwt=970) EOSINOPHILS ABSOLUTE COUNT (BEAKER) (test 0.53 K/ L 0.04-0.54 anzb=867) BASOPHILS ABSOLUTE COUNT (BEAKER) (test 0.09 K/ L 0.01-0.08 cixg=393) IMMATURE GRANULOCYTES-RELATIVE PERCENT (BEAKER) 1 % 0-1 (test myrd=9407) [id number] 06:48:00 Test Item Value Reference Range Comments MAGNESIUM (BEAKER) (test toyw=253) 1.9 mg/dL 1.6-2.6 BASIC METABOLIC [id number] 06:48:00 Test Item Value Reference Range Comments SODIUM (BEAKER) (test 137 meq/L 136-145 pnqf=933) POTASSIUM (BEAKER) (test 4.0 meq/L 3.5-5.1 zmjk=784) CHLORIDE (BEAKER) (test 102 meq/L 98-107 nlfg=240) CO2 (BEAKER) (test 29 meq/L 22-29 gmag=406) BLOOD UREA NITROGEN 6 mg/dL 7-21 (BEAKER) (test rrpr=085) CREATININE (BEAKER) (test 0.69 mg/dL 0.57-1.25 omwo=709) GLUCOSE RANDOM (BEAKER) 116 mg/dL 70-105 (test beks=475) CALCIUM (BEAKER) (test 8.7 mg/dL 8.4-10.2 xlaf=816) EGFR (BEAKER) (test 136 mL/min/1.73 sq m ESTIMATED GFR IS NOT puti=3638) ACCURATE CREATININE CLEARANCE IN PREDICTING GLOMERULAR FILTRATION RATE. ESTIMATED GFR IS NOT APPLICABLE FOR DIALYSIS PATIENTS. HEPATIC FUNCTION [id number] 06:48:00 Test Item Value Reference Range Comments TOTAL PROTEIN (BEAKER) (test wmay=063) 6.2 gm/dL 6.0-8.3 ALBUMIN (BEAKER) (test tjhu=0790) 2.5 g/dL 3.5-5.0 BILIRUBIN TOTAL (BEAKER) (test fbbr=556) 0.6 mg/dL 0.2-1.2 BILIRUBIN DIRECT (BEAKER) (test syxf=518) 0.5 mg/dL 0.1-0.5 ALKALINE PHOSPHATASE (BEAKER) (test wrjq=114) 102 U/L 40-150 AST (SGOT) (BEAKER) (test maca=480) 48 U/L 5-34 ALT (SGPT) (BEAKER) (test ocfe=058) 50 U/L 6-55 PT/[id number] 06:31:00 Test Item Value Reference Range Comments PROTIME (BEAKER) (test ektp=672) 21.1 seconds 11.7-14.7 INR (BEAKER) (test skgn=864) 1.9 <=5.9 PARTIAL THROMBOPLASTIN TIME (BEAKER) (test 58.0 seconds 22.5-36.0 tzfl=643) RECOMMENDED COUMADIN/WARFARIN INR THERAPY RANGESSTANDARD DOSE: 2.0 - 3.0 Includes: PROPHYLAXIS forvenous thrombosis, systemic embolization; TREATMENT for venous thrombosis and/or pulmonary embolus.HIGH RISK: Target INR is 2.5-3.5 for patients with mechanical heart valves.PROTHROMBIN [id number] 06:30: 00 Test Item Value Reference Range Comments PROTIME (BEAKER) (test lekg=243) 21.1 seconds 11.7-14.7 INR (BEAKER) (test pebt=702) 1.9 <=5.9 RECOMMENDED COUMADIN/WARFARIN INR THERAPY RANGESSTANDARD DOSE: 2.0 - 3.0 Includes: PROPHYLAXIS forvenous thrombosis, systemic embolization; TREATMENT for venous thrombosis and/or pulmonary embolus.HIGH RISK: Target INR is 2.5-3.5 for patients with mechanical heart valves.CBC W/PLT COUNT & AUTO [id number] 06:11:00 Test Item Value Reference Range Comments WHITE BLOOD CELL COUNT (BEAKER) (test fdyr=846) 10.3 K/ L 3.5-10.5 RED BLOOD CELL COUNT (BEAKER) (test wkii=067) 3.56 M/ L 4.63-6.08 HEMOGLOBIN (BEAKER) (test vvuf=187) 10.4 GM/DL 13.7-17.5 HEMATOCRIT (BEAKER) (test dhra=918) 33.3 % 40.1-51.0 MEAN CORPUSCULAR VOLUME (BEAKER) (test wmei=517) 93.5 fL 79.0-92.2 MEAN CORPUSCULAR HEMOGLOBIN (BEAKER) (test 29.2 pg 25.7-32.2 pokh=588) MEAN CORPUSCULAR HEMOGLOBIN CONC (BEAKER) (test 31.2 GM/DL 32.3-36.5 vyfz=638) RED CELL DISTRIBUTION WIDTH (BEAKER) (test 13.7 % 11.6-14.4 rxlg=715) PLATELET COUNT (BEAKER) (test wlgk=891) 487 K/CU MM 150-450 MEAN PLATELET VOLUME (BEAKER) (test viat=730) 10.6 fL 9.4-12.4 NUCLEATED RED BLOOD CELLS (BEAKER) (test 0 /100 WBC 0-0 zmji=403) NEUTROPHILS RELATIVE PERCENT (BEAKER) (test 66 % pxhx=341) LYMPHOCYTES RELATIVE PERCENT (BEAKER) (test 18 % swyl=154) MONOCYTES RELATIVE PERCENT (BEAKER) (test 10 % mowv=552) EOSINOPHILS RELATIVE PERCENT (BEAKER) (test 4 % milh=177) BASOPHILS RELATIVE PERCENT (BEAKER) (test 1 % aaqp=441) NEUTROPHILS ABSOLUTE COUNT (BEAKER) (test 6.87 K/ L 1.78-5.38 gjcu=002) LYMPHOCYTES ABSOLUTE COUNT (BEAKER) (test 1.81 K/ L 1.32-3.57 boqk=061) MONOCYTES ABSOLUTE COUNT (BEAKER) (test 1.00 K/ L 0.30-0.82 payv=712) EOSINOPHILS ABSOLUTE COUNT (BEAKER) (test 0.45 K/ L 0.04-0.54 trml=971) BASOPHILS ABSOLUTE COUNT (BEAKER) (test 0.06 K/ L 0.01-0.08 sghr=125) IMMATURE GRANULOCYTES-RELATIVE PERCENT (BEAKER) 1 % 0-1 (test reoj=2314) RAD, CHEST, 1 VIEW, NON [id number] 18:34:00Reason for exam:->SOBShould this be performed at [...] no significant change since 06/07/2018. Signed: Adán eHrrmanneport Verified Date/Time: 06/11/2018 18:34:14 Reading Location: [facility] B1 [id number] Consult Reading Room B-TYPE NATRIURETIC FACTOR (BNP)2018-06-11 15:45:00 Test Item Value Reference Range Comments B-TYPE NATRIURETIC PEPTIDE (BEAKER) (test ixvq=001) < pg/mL 0-100 PT/[id number] 06:36:00 Test Item Value Reference Range Comments PROTIME (BEAKER) (test hnpb=708) 21.5 seconds 11.7-14.7 INR (BEAKER) (test ymgm=060) 2.0 <=5.9 PARTIAL THROMBOPLASTIN TIME (BEAKER) (test 60.3 seconds 22.5-36.0 fwvt=640) RECOMMENDED COUMADIN/WARFARIN INR THERAPY RANGESSTANDARD DOSE: 2.0 - 3.0 Includes: PROPHYLAXIS forvenous thrombosis, systemic embolization; TREATMENT for venous thrombosis and/or pulmonary embolus.HIGH RISK: Target INR is 2.5-3.5 for patients with mechanical heart valves.PROTHROMBIN [id number] 06:35: 00 Test Item Value Reference Range Comments PROTIME (BEAKER) (test tubg=678) 21.5 seconds 11.7-14.7 INR (BEAKER) (test luup=229) 2.0 <=5.9 RECOMMENDED COUMADIN/WARFARIN INR THERAPY RANGESSTANDARD DOSE: 2.0 - 3.0 Includes: PROPHYLAXIS forvenous thrombosis, systemic embolization; TREATMENT for venous thrombosis and/or pulmonary embolus.HIGH RISK: Target INR is 2.5-3.5 for patients with mechanical heart valves.[id number] 06:29:00 Test Item Value Reference Range Comments MAGNESIUM (BEAKER) (test 1.9 mg/dL 1.6-2.6 Specimen slightly hemolyzed cihp=701) BASIC METABOLIC [id number] 06:29:00 Test Item Value Reference Range Comments SODIUM (BEAKER) (test 136 meq/L 136-145 dfyf=914) POTASSIUM (BEAKER) (test 4.0 meq/L 3.5-5.1 Specimen slightly zhik=525) hemolyzed CHLORIDE (BEAKER) (test 100 meq/L 98-107 htds=433) CO2 (BEAKER) (test 30 meq/L 22-29 phch=396) BLOOD UREA NITROGEN 6 mg/dL 7-21 (BEAKER) (test xkkw=240) CREATININE (BEAKER) (test 0.70 mg/dL 0.57-1.25 Specimen slightly ytnb=926) hemolyzed GLUCOSE RANDOM (BEAKER) 114 mg/dL 70-105 (test gxkz=446) CALCIUM (BEAKER) (test 8.4 mg/dL 8.4-10.2 qzrt=037) EGFR (BEAKER) (test 133 mL/min/1.73 sq m ESTIMATED GFR IS NOT scei=1390) ACCURATE CREATININE CLEARANCE IN PREDICTING GLOMERULAR FILTRATION RATE. ESTIMATED GFR IS NOT APPLICABLE FOR DIALYSIS PATIENTS. HEPATIC FUNCTION [id number] 06:29:00 Test Item Value Reference Range Comments TOTAL PROTEIN (BEAKER) (test 6.2 gm/dL 6.0-8.3 Specimen slightly hemolyzed nqoz=556) ALBUMIN (BEAKER) (test 2.4 g/dL 3.5-5.0 Specimen slightly hemolyzed gfwx=5338) BILIRUBIN TOTAL (BEAKER) (test 0.7 mg/dL 0.2-1.2 Specimen slightly hemolyzed hukf=259) BILIRUBIN DIRECT (BEAKER) (test 0.3 mg/dL 0.1-0.5 Specimen slightly hemolyzed hzkh=963) ALKALINE PHOSPHATASE (BEAKER) 105 U/L 40-150 (test pbbj=243) AST (SGOT) (BEAKER) (test 56 U/L 5-34 Specimen slightly hemolyzed fzoy=598) ALT (SGPT) (BEAKER) (test 51 U/L 6-55 Specimen slightly hemolyzed wlyc=638) CBC W/PLT COUNT & AUTO [id number] 06:00:00 Test Item Value Reference Range Comments WHITE BLOOD CELL COUNT (BEAKER) (test lezc=251) 10.8 K/ L 3.5-10.5 RED BLOOD CELL COUNT (BEAKER) (test bjpa=945) 3.49 M/ L 4.63-6.08 HEMOGLOBIN (BEAKER) (test zkcs=678) 10.4 GM/DL 13.7-17.5 HEMATOCRIT (BEAKER) (test udhu=846) 32.7 % 40.1-51.0 MEAN CORPUSCULAR VOLUME (BEAKER) (test qlqo=615) 93.7 fL 79.0-92.2 MEAN CORPUSCULAR HEMOGLOBIN (BEAKER) (test 29.8 pg 25.7-32.2 njbb=488) MEAN CORPUSCULAR HEMOGLOBIN CONC (BEAKER) (test 31.8 GM/DL 32.3-36.5 scsw=710) RED CELL DISTRIBUTION WIDTH (BEAKER) (test 14.0 % 11.6-14.4 kqho=582) PLATELET COUNT (BEAKER) (test qsne=649) 497 K/CU MM 150-450 MEAN PLATELET VOLUME (BEAKER) (test jmgc=863) 10.7 fL 9.4-12.4 NUCLEATED RED BLOOD CELLS (BEAKER) (test 0 /100 WBC 0-0 vott=021) NEUTROPHILS RELATIVE PERCENT (BEAKER) (test 68 % rpii=889) LYMPHOCYTES RELATIVE PERCENT (BEAKER) (test 17 % btur=267) MONOCYTES RELATIVE PERCENT (BEAKER) (test 10 % wlyb=570) EOSINOPHILS RELATIVE PERCENT (BEAKER) (test 3 % eety=026) BASOPHILS RELATIVE PERCENT (BEAKER) (test 1 % seot=695) NEUTROPHILS ABSOLUTE COUNT (BEAKER) (test 7.27 K/ L 1.78-5.38 pzjm=134) LYMPHOCYTES ABSOLUTE COUNT (BEAKER) (test 1.87 K/ L 1.32-3.57 mrmu=814) MONOCYTES ABSOLUTE COUNT (BEAKER) (test 1.04 K/ L 0.30-0.82 nnbe=949) EOSINOPHILS ABSOLUTE COUNT (BEAKER) (test 0.37 K/ L 0.04-0.54 izpc=315) BASOPHILS ABSOLUTE COUNT (BEAKER) (test 0.07 K/ L 0.01-0.08 yhca=182) IMMATURE GRANULOCYTES-RELATIVE PERCENT (BEAKER) 1 % 0-1 (test uryn=6893) BODY FLUID CULTURE + GRAM [id number] 18:11:00 Test Item Value Reference Range Comments CULTURE (BEAKER) (test guxb=9207) No growth GRAM STAIN RESULT (BEAKER) (test <1+ White blood cells seen jdin=6926) GRAM STAIN RESULT (BEAKER) (test No organisms seen ytqh=35987) [id number] 07:01:00 Test Item Value Reference Range Comments MAGNESIUM (BEAKER) (test ansj=836) 1.9 mg/dL 1.6-2.6 BASIC METABOLIC [id number] 07:01:00 Test Item Value Reference Range Comments SODIUM (BEAKER) (test 138 meq/L 136-145 tlfb=903) POTASSIUM (BEAKER) (test 3.8 meq/L 3.5-5.1 ccrw=912) CHLORIDE (BEAKER) (test 102 meq/L 98-107 nxnm=248) CO2 (BEAKER) (test 29 meq/L 22-29 ljkp=221) BLOOD UREA NITROGEN 7 mg/dL 7-21 (BEAKER) (test rtuf=457) CREATININE (BEAKER) (test 0.70 mg/dL 0.57-1.25 oojh=560) GLUCOSE RANDOM (BEAKER) 126 mg/dL 70-105 (test apcw=359) CALCIUM (BEAKER) (test 8.6 mg/dL 8.4-10.2 cvwz=074) EGFR (BEAKER) (test 133 mL/min/1.73 sq m ESTIMATED GFR IS NOT pqnm=0163) ACCURATE CREATININE CLEARANCE IN PREDICTING GLOMERULAR FILTRATION RATE. ESTIMATED GFR IS NOT APPLICABLE FOR DIALYSIS PATIENTS. HEPATIC FUNCTION [id number] 07:01:00 Test Item Value Reference Range Comments TOTAL PROTEIN (BEAKER) (test yycx=639) 6.1 gm/dL 6.0-8.3 ALBUMIN (BEAKER) (test mcwp=8511) 2.5 g/dL 3.5-5.0 BILIRUBIN TOTAL (BEAKER) (test mcui=616) 0.7 mg/dL 0.2-1.2 BILIRUBIN DIRECT (BEAKER) (test lqtf=347) 0.6 mg/dL 0.1-0.5 ALKALINE PHOSPHATASE (BEAKER) (test bebz=529) 119 U/L 40-150 AST (SGOT) (BEAKER) (test pjue=906) 72 U/L 5-34 ALT (SGPT) (BEAKER) (test axbl=893) 66 U/L 6-55 [id number] 06:32:00 Test Item Value Reference Range Comments PROTIME (BEAKER) (test pkrz=045) 22.5 seconds 11.7-14.7 INR (BEAKER) (test ofna=726) 2.1 <=5.9 PARTIAL THROMBOPLASTIN TIME (BEAKER) (test 56.8 seconds 22.5-36.0 ulif=352) RECOMMENDED COUMADIN/WARFARIN INR THERAPY RANGESSTANDARD DOSE: 2.0 - 3.0 Includes: PROPHYLAXIS forvenous thrombosis, systemic embolization; TREATMENT for venous thrombosis and/or pulmonary embolus.HIGH RISK: Target INR is 2.5-3.5 for patients with mechanical heart valves.CBC W/PLT COUNT & AUTO [id number] 06:26:00 Test Item Value Reference Range Comments WHITE BLOOD CELL COUNT (BEAKER) (test yqlp=402) 12.5 K/ L 3.5-10.5 RED BLOOD CELL COUNT (BEAKER) (test rcyq=835) 3.56 M/ L 4.63-6.08 HEMOGLOBIN (BEAKER) (test eavb=760) 10.3 GM/DL 13.7-17.5 HEMATOCRIT (BEAKER) (test himg=014) 33.3 % 40.1-51.0 MEAN CORPUSCULAR VOLUME (BEAKER) (test bjiy=806) 93.5 fL 79.0-92.2 MEAN CORPUSCULAR HEMOGLOBIN (BEAKER) (test 28.9 pg 25.7-32.2 kzqf=593) MEAN CORPUSCULAR HEMOGLOBIN CONC (BEAKER) (test 30.9 GM/DL 32.3-36.5 dhpl=683) RED CELL DISTRIBUTION WIDTH (BEAKER) (test 14.3 % 11.6-14.4 kjtj=336) PLATELET COUNT (BEAKER) (test amno=666) 470 K/CU MM 150-450 MEAN PLATELET VOLUME (BEAKER) (test jvyj=988) 10.8 fL 9.4-12.4 NUCLEATED RED BLOOD CELLS (BEAKER) (test 0 /100 WBC 0-0 ikdc=147) NEUTROPHILS RELATIVE PERCENT (BEAKER) (test 71 % pqvi=710) LYMPHOCYTES RELATIVE PERCENT (BEAKER) (test 13 % gniw=556) MONOCYTES RELATIVE PERCENT (BEAKER) (test 10 % evgh=183) EOSINOPHILS RELATIVE PERCENT (BEAKER) (test 4 % grpp=070) BASOPHILS RELATIVE PERCENT (BEAKER) (test 1 % jlct=911) NEUTROPHILS ABSOLUTE COUNT (BEAKER) (test 8.89 K/ L 1.78-5.38 tuoe=259) LYMPHOCYTES ABSOLUTE COUNT (BEAKER) (test 1.64 K/ L 1.32-3.57 rrca=852) MONOCYTES ABSOLUTE COUNT (BEAKER) (test 1.24 K/ L 0.30-0.82 cgzz=049) EOSINOPHILS ABSOLUTE COUNT (BEAKER) (test 0.46 K/ L 0.04-0.54 ahka=329) BASOPHILS ABSOLUTE COUNT (BEAKER) (test 0.06 K/ L 0.01-0.08 yxwo=478) IMMATURE GRANULOCYTES-RELATIVE PERCENT (BEAKER) 1 % 0-1 (test hvgj=2113) BLOOD [id number] 22:01:00 Test Item Value Reference Range Comments CULTURE (BEAKER) (test gcby=7347) No growth in 5 days BLOOD [id number] 22:01:00 Test Item Value Reference Range Comments CULTURE (BEAKER) (test igtp=6644) No growth in 5 days [id number] 07:20:00 Test Item Value Reference Range Comments PROTIME (BEAKER) (test fgvp=848) 21.3 seconds 11.7-14.7 INR (BEAKER) (test baho=879) 2.0 <=5.9 PARTIAL THROMBOPLASTIN TIME (BEAKER) (test 50.7 seconds 22.5-36.0 eudy=764) RECOMMENDED COUMADIN/WARFARIN INR THERAPY RANGESSTANDARD DOSE: 2.0 - 3.0 Includes: PROPHYLAXIS forvenous thrombosis, systemic embolization; TREATMENT for venous thrombosis and/or pulmonary embolus.HIGH RISK: Target INR is 2.5-3.5 for patients with mechanical heart valves.CBC W/PLT COUNT & AUTO [id number] 07:09:00 Test Item Value Reference Range Comments WHITE BLOOD CELL COUNT (BEAKER) (test ugtf=122) 13.7 K/ L 3.5-10.5 RED BLOOD CELL COUNT (BEAKER) (test ctzq=806) 3.79 M/ L 4.63-6.08 HEMOGLOBIN (BEAKER) (test hvtx=465) 11.0 GM/DL 13.7-17.5 HEMATOCRIT (BEAKER) (test kuqe=026) 35.6 % 40.1-51.0 MEAN CORPUSCULAR VOLUME (BEAKER) (test aulu=776) 93.9 fL 79.0-92.2 MEAN CORPUSCULAR HEMOGLOBIN (BEAKER) (test 29.0 pg 25.7-32.2 lgkj=611) MEAN CORPUSCULAR HEMOGLOBIN CONC (BEAKER) (test 30.9 GM/DL 32.3-36.5 dctz=010) RED CELL DISTRIBUTION WIDTH (BEAKER) (test 14.6 % 11.6-14.4 ggle=454) PLATELET COUNT (BEAKER) (test ejri=993) 450 K/CU MM 150-450 MEAN PLATELET VOLUME (BEAKER) (test afvy=683) 10.7 fL 9.4-12.4 NUCLEATED RED BLOOD CELLS (BEAKER) (test 0 /100 WBC 0-0 umdo=442) NEUTROPHILS RELATIVE PERCENT (BEAKER) (test 74 % bkax=421) LYMPHOCYTES RELATIVE PERCENT (BEAKER) (test 12 % yamt=165) MONOCYTES RELATIVE PERCENT (BEAKER) (test 10 % eycd=482) EOSINOPHILS RELATIVE PERCENT (BEAKER) (test 3 % molk=818) BASOPHILS RELATIVE PERCENT (BEAKER) (test 1 % nbsw=262) NEUTROPHILS ABSOLUTE COUNT (BEAKER) (test 10.10 K/ L 1.78-5.38 wpyx=576) LYMPHOCYTES ABSOLUTE COUNT (BEAKER) (test 1.64 K/ L 1.32-3.57 jatu=317) MONOCYTES ABSOLUTE COUNT (BEAKER) (test 1.34 K/ L 0.30-0.82 ayta=509) EOSINOPHILS ABSOLUTE COUNT (BEAKER) (test 0.40 K/ L 0.04-0.54 ywgy=578) BASOPHILS ABSOLUTE COUNT (BEAKER) (test 0.07 K/ L 0.01-0.08 wcyv=831) IMMATURE GRANULOCYTES-RELATIVE PERCENT (BEAKER) 1 % 0-1 (test wfzj=5721) [id number] 07:08:00 Test Item Value Reference Range Comments MAGNESIUM (BEAKER) (test wrew=069) 2.1 mg/dL 1.6-2.6 BASIC METABOLIC [id number] 07:08:00 Test Item Value Reference Range Comments SODIUM (BEAKER) (test 140 meq/L 136-145 lhof=730) POTASSIUM (BEAKER) (test 4.0 meq/L 3.5-5.1 ysbu=722) CHLORIDE (BEAKER) (test 102 meq/L 98-107 vudh=997) CO2 (BEAKER) (test 29 meq/L 22-29 zpff=834) BLOOD UREA NITROGEN 8 mg/dL 7-21 (BEAKER) (test qkxw=557) CREATININE (BEAKER) (test 0.72 mg/dL 0.57-1.25 xklt=710) GLUCOSE RANDOM (BEAKER) 109 mg/dL 70-105 (test drzt=567) CALCIUM (BEAKER) (test 8.7 mg/dL 8.4-10.2 yrvm=333) EGFR (BEAKER) (test 129 mL/min/1.73 sq m ESTIMATED GFR IS NOT jkok=2110) ACCURATE CREATININE CLEARANCE IN PREDICTING GLOMERULAR FILTRATION RATE. ESTIMATED GFR IS NOT APPLICABLE FOR DIALYSIS PATIENTS. HEPATIC FUNCTION [id number] 07:08:00 Test Item Value Reference Range Comments TOTAL PROTEIN (BEAKER) (test elhm=855) 6.5 gm/dL 6.0-8.3 ALBUMIN (BEAKER) (test dwaw=0082) 2.6 g/dL 3.5-5.0 BILIRUBIN TOTAL (BEAKER) (test uumt=025) 0.9 mg/dL 0.2-1.2 BILIRUBIN DIRECT (BEAKER) (test henp=908) 0.7 mg/dL 0.1-0.5 ALKALINE PHOSPHATASE (BEAKER) (test umvm=387) 133 U/L 40-150 AST (SGOT) (BEAKER) (test gldz=477) 87 U/L 5-34 ALT (SGPT) (BEAKER) (test ckji=471) 69 U/L 6-55 PROTHROMBIN [id number] 06:54:00 Test Item Value Reference Range Comments PROTIME (BEAKER) (test ztjl=793) 21.3 seconds 11.7-14.7 INR (BEAKER) (test hwxd=029) 2.0 <=5.9 RECOMMENDED COUMADIN/WARFARIN INR THERAPY RANGESSTANDARD DOSE: 2.0 - 3.0 Includes: PROPHYLAXIS forvenous thrombosis, systemic embolization; TREATMENT for venous thrombosis and/or pulmonary embolus.HIGH RISK: Target INR is 2.5-3.5 for patients with mechanical heart valves.[id number] 06:24:00 Test Item Value Reference Range Comments MAGNESIUM (BEAKER) (test ojha=372) 2.0 mg/dL 1.6-2.6 BASIC METABOLIC [id number] 06:24:00 Test Item Value Reference Range Comments SODIUM (BEAKER) (test 139 meq/L 136-145 oezf=573) POTASSIUM (BEAKER) (test 3.7 meq/L 3.5-5.1 wxrn=085) CHLORIDE (BEAKER) (test 103 meq/L 98-107 itpw=436) CO2 (BEAKER) (test 27 meq/L 22-29 jddf=453) BLOOD UREA NITROGEN 8 mg/dL 7-21 (BEAKER) (test klyh=649) CREATININE (BEAKER) (test 0.68 mg/dL 0.57-1.25 jtls=709) GLUCOSE RANDOM (BEAKER) 133 mg/dL 70-105 (test ybjt=708) CALCIUM (BEAKER) (test 8.4 mg/dL 8.4-10.2 tnlz=460) EGFR (BEAKER) (test 138 mL/min/1.73 sq m ESTIMATED GFR IS NOT lynu=6877) ACCURATE CREATININE CLEARANCE IN PREDICTING GLOMERULAR FILTRATION RATE. ESTIMATED GFR IS NOT APPLICABLE FOR DIALYSIS PATIENTS. HEPATIC FUNCTION [id number] 06:24:00 Test Item Value Reference Range Comments TOTAL PROTEIN (BEAKER) (test sejb=673) 6.1 gm/dL 6.0-8.3 ALBUMIN (BEAKER) (test bvre=6796) 2.5 g/dL 3.5-5.0 BILIRUBIN TOTAL (BEAKER) (test hgye=033) 1.0 mg/dL 0.2-1.2 BILIRUBIN DIRECT (BEAKER) (test mcrk=904) 0.8 mg/dL 0.1-0.5 ALKALINE PHOSPHATASE (BEAKER) (test tfyg=274) 130 U/L 40-150 AST (SGOT) (BEAKER) (test slkg=024) 71 U/L 5-34 ALT (SGPT) (BEAKER) (test wses=604) 56 U/L 6-55 CBC W/PLT COUNT & AUTO [id number] 06:17:00 Test Item Value Reference Range Comments WHITE BLOOD CELL COUNT (BEAKER) (test ytrw=309) 17.6 K/ L 3.5-10.5 RED BLOOD CELL COUNT (BEAKER) (test lhom=401) 3.67 M/ L 4.63-6.08 HEMOGLOBIN (BEAKER) (test naxu=262) 10.7 GM/DL 13.7-17.5 HEMATOCRIT (BEAKER) (test xmjm=841) 34.1 % 40.1-51.0 MEAN CORPUSCULAR VOLUME (BEAKER) (test ijwa=082) 92.9 fL 79.0-92.2 MEAN CORPUSCULAR HEMOGLOBIN (BEAKER) (test 29.2 pg 25.7-32.2 ilgz=146) MEAN CORPUSCULAR HEMOGLOBIN CONC (BEAKER) (test 31.4 GM/DL 32.3-36.5 qito=737) RED CELL DISTRIBUTION WIDTH (BEAKER) (test 14.6 % 11.6-14.4 cwox=634) PLATELET COUNT (BEAKER) (test yfbb=911) 395 K/CU MM 150-450 MEAN PLATELET VOLUME (BEAKER) (test ofyj=664) 10.6 fL 9.4-12.4 NUCLEATED RED BLOOD CELLS (BEAKER) (test 0 /100 WBC 0-0 gmwi=911) NEUTROPHILS RELATIVE PERCENT (BEAKER) (test 79 % zoct=704) LYMPHOCYTES RELATIVE PERCENT (BEAKER) (test 8 % wmzh=541) MONOCYTES RELATIVE PERCENT (BEAKER) (test 9 % aocz=043) EOSINOPHILS RELATIVE PERCENT (BEAKER) (test 2 % ckcx=715) BASOPHILS RELATIVE PERCENT (BEAKER) (test 0 % ynfu=021) NEUTROPHILS ABSOLUTE COUNT (BEAKER) (test 13.89 K/ L 1.78-5.38 xwdn=703) LYMPHOCYTES ABSOLUTE COUNT (BEAKER) (test 1.41 K/ L 1.32-3.57 ifyd=123) MONOCYTES ABSOLUTE COUNT (BEAKER) (test 1.58 K/ L 0.30-0.82 llwj=758) EOSINOPHILS ABSOLUTE COUNT (BEAKER) (test 0.41 K/ L 0.04-0.54 duqf=715) BASOPHILS ABSOLUTE COUNT (BEAKER) (test 0.06 K/ L 0.01-0.08 jfbm=746) IMMATURE GRANULOCYTES-RELATIVE PERCENT (BEAKER) 1 % 0-1 (test auku=0381) PROTHROMBIN [id number] 05:39:00 Test Item Value Reference Range Comments PROTIME (BEAKER) (test hrca=688) 22.4 seconds 11.7-14.7 INR (BEAKER) (test mzhk=972) 2.1 <=5.9 RECOMMENDED COUMADIN/WARFARIN INR THERAPY RANGESSTANDARD DOSE: 2.0 - 3.0 Includes: PROPHYLAXIS forvenous thrombosis, systemic embolization; TREATMENT for venous thrombosis and/or pulmonary embolus.HIGH RISK: Target INR is 2.5-3.5 for patients with mechanical heart valves.[id number] 05:39:00 Test Item Value Reference Range Comments PROTIME (BEAKER) (test brnc=914) 22.4 seconds 11.7-14.7 INR (BEAKER) (test msju=879) 2.1 <=5.9 PARTIAL THROMBOPLASTIN TIME (BEAKER) (test 48.4 seconds 22.5-36.0 uguc=021) RECOMMENDED COUMADIN/WARFARIN INR THERAPY RANGESSTANDARD DOSE: 2.0 - 3.0 Includes: PROPHYLAXIS forvenous thrombosis, systemic embolization; TREATMENT for venous thrombosis and/or pulmonary embolus.HIGH RISK: Target INR is 2.5-3.5 for patients with mechanical heart valves.VANCOMYCIN LEVEL, [id number] 05: 28:00 Test Item Value Reference Range Comments VANCOMYCIN TROUGH (BEAKER) (test qixl=043) 14.0 ug/mL 10.0-20.0 RAD, CHEST, 1 VIEW, NON [id number] 16:09:00Reason for exam:->feverShould this be performed at [...] Verified Date/Time : 06/07/2018 16:09:31 Reading Location: [facility] Women INCUBATED 1:1 MIXING [id number] 16:01:00 Test Item Value Reference Range Comments IMMEDIATE PT (BEAKER) (test 22.5 seconds 11.7-14.7 dyxu=9831) IMMEDIATE PTT (BEAKER) (test 54.8 seconds 22.5-36.0 zvgx=7457) IMMEDIATE 1:1 MIX PT (BEAKER) 14.1 seconds 11.7-14.7 (test oeov=[id number]) IMMEDIATE 1:1 MIX PTT (BEAKER) 40.9 seconds 22.5-36.0 (test uosr=[id number]) 1:1 MIX, 1 HOUR INC PT (BEAKER) 14.9 seconds (test ppsa=5392) 1:1 MIX, 1 HOUR INC PTT (BEAKER) 43.6 seconds (test thni=3902) MIXING STUDY PATHOLOGIST Prolonged PT and PTT with INTERPRETATION (BEAKER) (test complete correction of PT vmzd=[id number]) and incomplete correction of PTT, 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 [id number] (BEAKER) Sade Mccormack MD (test gbtj=3441) (electronic signature) URINALYSIS W/ REFLEX URINE [id number] 14:23:00 Test Item Value Reference Range Comments COLOR (BEAKER) (test ogdb=426) Yellow CLARITY (BEAKER) (test mhfr=257) Clear SPECIFIC GRAVITY UA (BEAKER) (test flrx=922) 1.012 1.001-1.035 PH UA (BEAKER) (test lwvv=253) 6.5 5.0-8.0 PROTEIN UA (BEAKER) (test axfz=697) 20 mg/dL Negative GLUCOSE UA (BEAKER) (test myvo=943) Negative Negative KETONES UA (BEAKER) (test glsa=858) 40 mg/dL Negative BILIRUBIN UA (BEAKER) (test qkkd=987) Negative Negative BLOOD UA (BEAKER) (test vdjz=211) Trace Negative NITRITE UA (BEAKER) (test lwci=735) Negative Negative LEUKOCYTE ESTERASE UA (BEAKER) (test arlq=247) Negative Negative UROBILINOGEN UA (BEAKER) (test elaw=418) 0.2 mg/dL 0.2-1.0 RBC UA (BEAKER) (test kvag=707) 2 /HPF WBC UA (BEAKER) (test bojq=649) 3 /HPF MUCUS (BEAKER) (test zjfh=4844) Rare SOURCE(BEAKER) (test yjis=0611) [id number] 04:19:00 Test Item Value Reference Range Comments PROTIME (BEAKER) (test husu=688) 22.3 seconds 11.7-14.7 INR (BEAKER) (test prmp=024) 2.1 <=5.9 PARTIAL THROMBOPLASTIN TIME (BEAKER) (test 51.1 seconds 22.5-36.0 gliq=399) RECOMMENDED COUMADIN/WARFARIN INR THERAPY RANGESSTANDARD DOSE: 2.0 - 3.0 Includes: PROPHYLAXIS forvenous thrombosis, systemic embolization; TREATMENT for venous thrombosis and/or pulmonary embolus.HIGH RISK: Target INR is 2.5-3.5 for patients with mechanical heart valves.PROTHROMBIN [id number] 04:18: 00 Test Item Value Reference Range Comments PROTIME (BEAKER) (test pcup=722) 22.3 seconds 11.7-14.7 INR (BEAKER) (test ofln=078) 2.1 <=5.9 RECOMMENDED COUMADIN/WARFARIN INR THERAPY RANGESSTANDARD DOSE: 2.0 - 3.0 Includes: PROPHYLAXIS forvenous thrombosis, systemic embolization; TREATMENT for venous thrombosis and/or pulmonary embolus.HIGH RISK: Target INR is 2.5-3.5 for patients with mechanical heart valves.[id number] 04:08:00 Test Item Value Reference Range Comments MAGNESIUM (BEAKER) (test beyv=035) 1.8 mg/dL 1.6-2.6 BASIC METABOLIC [id number] 04:08:00 Test Item Value Reference Range Comments SODIUM (BEAKER) (test 139 meq/L 136-145 ofmr=946) POTASSIUM (BEAKER) (test 3.7 meq/L 3.5-5.1 vgef=314) CHLORIDE (BEAKER) (test 103 meq/L 98-107 xgux=314) CO2 (BEAKER) (test 27 meq/L 22-29 mkum=474) BLOOD UREA NITROGEN 9 mg/dL 7-21 (BEAKER) (test dquy=650) CREATININE (BEAKER) (test 0.69 mg/dL 0.57-1.25 annu=050) GLUCOSE RANDOM (BEAKER) 134 mg/dL 70-105 (test mskx=987) CALCIUM (BEAKER) (test 8.5 mg/dL 8.4-10.2 ybxa=840) EGFR (BEAKER) (test 136 mL/min/1.73 sq m ESTIMATED GFR IS NOT baaa=9769) ACCURATE CREATININE CLEARANCE IN PREDICTING GLOMERULAR FILTRATION RATE. ESTIMATED GFR IS NOT APPLICABLE FOR DIALYSIS PATIENTS. HEPATIC FUNCTION [id number] 04:08:00 Test Item Value Reference Range Comments TOTAL PROTEIN (BEAKER) (test tdyc=617) 6.2 gm/dL 6.0-8.3 ALBUMIN (BEAKER) (test fzxx=0949) 2.6 g/dL 3.5-5.0 BILIRUBIN TOTAL (BEAKER) (test have=685) 1.2 mg/dL 0.2-1.2 BILIRUBIN DIRECT (BEAKER) (test gloe=089) 1.0 mg/dL 0.1-0.5 ALKALINE PHOSPHATASE (BEAKER) (test khnb=096) 140 U/L 40-150 AST (SGOT) (BEAKER) (test wvwk=147) 72 U/L 5-34 ALT (SGPT) (BEAKER) (test olmd=609) 59 U/L 6-55 CBC W/PLT COUNT & AUTO [id number] 03:56:00 Test Item Value Reference Range Comments WHITE BLOOD CELL COUNT (BEAKER) (test dghi=116) 20.1 K/ L 3.5-10.5 RED BLOOD CELL COUNT (BEAKER) (test lxwk=814) 3.70 M/ L 4.63-6.08 HEMOGLOBIN (BEAKER) (test cawr=247) 11.1 GM/DL 13.7-17.5 HEMATOCRIT (BEAKER) (test aqpf=394) 33.8 % 40.1-51.0 MEAN CORPUSCULAR VOLUME (BEAKER) (test qwyx=276) 91.4 fL 79.0-92.2 MEAN CORPUSCULAR HEMOGLOBIN (BEAKER) (test 30.0 pg 25.7-32.2 ljbw=657) MEAN CORPUSCULAR HEMOGLOBIN CONC (BEAKER) (test 32.8 GM/DL 32.3-36.5 hiph=087) RED CELL DISTRIBUTION WIDTH (BEAKER) (test 14.6 % 11.6-14.4 fcxx=667) PLATELET COUNT (BEAKER) (test dxqy=787) 416 K/CU MM 150-450 MEAN PLATELET VOLUME (BEAKER) (test xhgn=223) 10.6 fL 9.4-12.4 NUCLEATED RED BLOOD CELLS (BEAKER) (test 0 /100 WBC 0-0 cehk=048) NEUTROPHILS RELATIVE PERCENT (BEAKER) (test 80 % bjqs=233) LYMPHOCYTES RELATIVE PERCENT (BEAKER) (test 8 % cpir=929) MONOCYTES RELATIVE PERCENT (BEAKER) (test 8 % slfl=330) EOSINOPHILS RELATIVE PERCENT (BEAKER) (test 2 % ksod=027) BASOPHILS RELATIVE PERCENT (BEAKER) (test 0 % qhnn=633) NEUTROPHILS ABSOLUTE COUNT (BEAKER) (test 16.05 K/ L 1.78-5.38 cmww=574) LYMPHOCYTES ABSOLUTE COUNT (BEAKER) (test 1.64 K/ L 1.32-3.57 wzao=987) MONOCYTES ABSOLUTE COUNT (BEAKER) (test 1.65 K/ L 0.30-0.82 fbch=333) EOSINOPHILS ABSOLUTE COUNT (BEAKER) (test 0.30 K/ L 0.04-0.54 wpvg=805) BASOPHILS ABSOLUTE COUNT (BEAKER) (test 0.05 K/ L 0.01-0.08 goeq=780) IMMATURE GRANULOCYTES-RELATIVE PERCENT (BEAKER) 2 % 0-1 (test yvmv=8474) FL, [id number] 18:30:00Reason for exam:->stonesPROCEDURE PERFORMED IN O.R. - PLEASE REFER TO THE INTRAOPERATIVE REPORT. CT, DRAINAGE, [id number] 18:06:00Reason for exam:->drainage of pancreatic fluid collection; concern for infection given ongoing fevers, WBC 24kFINAL REPORT INDICATION:28-year-old male with acute pancreatitis and acute necrotic collection. Request for percutaneous image guided drainage catheter placement. COMPARISON:June 05, 2018 TECHNIQUE:CT-guided placement of 10 Thai drainage catheter in left upper quadrant peripancreatic [...] and the introducer needle removed. An 8 Thai and then 10 Thai dilator were used. Then, a 10 Thai multisidehole drainage catheter was placed over the [...] 45 minutes. IMPRESSION: CT-guided placement of 10 Thai drainage catheter in left upper quadrant peripancreatic collection. Thin dark fluid was encountered. Signed: Leo Felton MDReport Verified Date/Time: 06/06/2018 18:06:54 Reading Location: [facility] C013Y CT Body Reading Room C. DIFFICILE GDH [id number] 10:12:00 Test Item Value Reference Range Comments CDT TOXIN (test Negative Negative seyt=[id number]) CDT GDH ANTIGEN (test Negative Negative No indication of Clostridium peer=[id number]) difficile infection and no colonization. Discontinue enteric isolation and therapy. Testing performed by [employer] Rapid Cassette Assay. For GDH, published sensitivity of the assay is 98.7% compared to cytotoxicity testing. For Toxin AB, published sensitivity is 87.8% and specificity 99.4% compared to cytotoxicity testing.Verification of kit performance was done by the [facility] Microbiology Lab prior to clinical use.VANCOMYCIN LEVEL, [id number] 04:02: 00 Test Item Value Reference Range Comments VANCOMYCIN TROUGH (BEAKER) (test xqqs=352) 9.9 ug/mL 10.0-20.0 [id number] 02:24:00 Test Item Value Reference Range Comments MAGNESIUM (BEAKER) (test bkgy=276) 1.8 mg/dL 1.6-2.6 BASIC METABOLIC [id number] 02:24:00 Test Item Value Reference Range Comments SODIUM (BEAKER) (test 139 meq/L 136-145 ruiu=618) POTASSIUM (BEAKER) (test 3.6 meq/L 3.5-5.1 uqao=709) CHLORIDE (BEAKER) (test 104 meq/L 98-107 xvhl=725) CO2 (BEAKER) (test 28 meq/L 22-29 kjyi=446) BLOOD UREA NITROGEN 9 mg/dL 7-21 (BEAKER) (test dcce=009) CREATININE (BEAKER) (test 0.73 mg/dL 0.57-1.25 ckxm=843) GLUCOSE RANDOM (BEAKER) 126 mg/dL 70-105 (test ioln=662) CALCIUM (BEAKER) (test 8.4 mg/dL 8.4-10.2 uzds=742) EGFR (BEAKER) (test 127 mL/min/1.73 sq m ESTIMATED GFR IS NOT wmfr=2453) ACCURATE CREATININE CLEARANCE IN PREDICTING GLOMERULAR FILTRATION RATE. ESTIMATED GFR IS NOT APPLICABLE FOR DIALYSIS PATIENTS. HEPATIC FUNCTION [id number] 02:24:00 Test Item Value Reference Range Comments TOTAL PROTEIN (BEAKER) (test kpac=612) 6.2 gm/dL 6.0-8.3 ALBUMIN (BEAKER) (test ffvi=4038) 2.6 g/dL 3.5-5.0 BILIRUBIN TOTAL (BEAKER) (test nlwx=897) 1.7 mg/dL 0.2-1.2 BILIRUBIN DIRECT (BEAKER) (test svme=455) 1.2 mg/dL 0.1-0.5 ALKALINE PHOSPHATASE (BEAKER) (test uqwf=639) 133 U/L 40-150 AST (SGOT) (BEAKER) (test vyxx=344) 89 U/L 5-34 ALT (SGPT) (BEAKER) (test bfjk=693) 60 U/L 6-55 [id number] 02:12:00 Test Item Value Reference Range Comments PROTIME (BEAKER) (test hbzu=855) 20.9 seconds 11.7-14.7 INR (BEAKER) (test ekhp=767) 1.9 <=5.9 PARTIAL THROMBOPLASTIN TIME (BEAKER) (test 48.9 seconds 22.5-36.0 bzkk=060) RECOMMENDED COUMADIN/WARFARIN INR THERAPY RANGESSTANDARD DOSE: 2.0 - 3.0 Includes: PROPHYLAXIS forvenous thrombosis, systemic embolization; TREATMENT for venous thrombosis and/or pulmonary embolus.HIGH RISK: Target INR is 2.5-3.5 for patients with mechanical heart valves.PROTHROMBIN [id number] 02:11: 00 Test Item Value Reference Range Comments PROTIME (BEAKER) (test dxdy=399) 20.9 seconds 11.7-14.7 INR (BEAKER) (test qvtx=985) 1.9 <=5.9 RECOMMENDED COUMADIN/WARFARIN INR THERAPY RANGESSTANDARD DOSE: 2.0 - 3.0 Includes: PROPHYLAXIS forvenous thrombosis, systemic embolization; TREATMENT for venous thrombosis and/or pulmonary embolus.HIGH RISK: Target INR is 2.5-3.5 for patients with mechanical heart valves.CBC W/PLT COUNT & AUTO [id number] 02:00:00 Test Item Value Reference Range Comments WHITE BLOOD CELL COUNT (BEAKER) (test kfon=861) 24.9 K/ L 3.5-10.5 RED BLOOD CELL COUNT (BEAKER) (test zdnn=625) 3.67 M/ L 4.63-6.08 HEMOGLOBIN (BEAKER) (test qrqg=334) 11.0 GM/DL 13.7-17.5 HEMATOCRIT (BEAKER) (test brcw=304) 34.0 % 40.1-51.0 MEAN CORPUSCULAR VOLUME (BEAKER) (test sxgj=794) 92.6 fL 79.0-92.2 MEAN CORPUSCULAR HEMOGLOBIN (BEAKER) (test 30.0 pg 25.7-32.2 ihhh=751) MEAN CORPUSCULAR HEMOGLOBIN CONC (BEAKER) (test 32.4 GM/DL 32.3-36.5 shbu=752) RED CELL DISTRIBUTION WIDTH (BEAKER) (test 14.8 % 11.6-14.4 kmpr=689) PLATELET COUNT (BEAKER) (test alpq=787) 366 K/CU MM 150-450 MEAN PLATELET VOLUME (BEAKER) (test mxsl=973) 10.5 fL 9.4-12.4 NUCLEATED RED BLOOD CELLS (BEAKER) (test 0 /100 WBC 0-0 optx=530) NEUTROPHILS RELATIVE PERCENT (BEAKER) (test 81 % zfnh=572) LYMPHOCYTES RELATIVE PERCENT (BEAKER) (test 7 % unhz=825) MONOCYTES RELATIVE PERCENT (BEAKER) (test 8 % cwwd=524) EOSINOPHILS RELATIVE PERCENT (BEAKER) (test 2 % yfpv=315) BASOPHILS RELATIVE PERCENT (BEAKER) (test 0 % hlit=354) NEUTROPHILS ABSOLUTE COUNT (BEAKER) (test 20.12 K/ L 1.78-5.38 wurg=082) LYMPHOCYTES ABSOLUTE COUNT (BEAKER) (test 1.67 K/ L 1.32-3.57 tzby=793) MONOCYTES ABSOLUTE COUNT (BEAKER) (test 1.96 K/ L 0.30-0.82 mdgb=758) EOSINOPHILS ABSOLUTE COUNT (BEAKER) (test 0.49 K/ L 0.04-0.54 dslc=233) BASOPHILS ABSOLUTE COUNT (BEAKER) (test 0.09 K/ L 0.01-0.08 fxif=017) IMMATURE GRANULOCYTES-RELATIVE PERCENT (BEAKER) 2 % 0-1 (test hwsu=4455) [id number] 16:33:00 Test Item Value Reference Range Comments FIBRINOGEN LEVEL (BEAKER) (test lryd=641) 852 mg/dl 225-434 CT, [id number] 12:46:00FINAL REPORT CT abdomen and pelvis with [...] MDReport Verified Date/Time: 06/05/2018 12:46:00 Reading Location: [facility] Diagnostic Imaging Reading Room - [place] [address] CBC W/PLT COUNT & AUTO [id number] 10:12:00 Test Item Value Reference Range Comments WHITE BLOOD CELL COUNT (BEAKER) (test licc=739) 24.1 K/ L 3.5-10.5 RED BLOOD CELL COUNT (BEAKER) (test wccc=593) 3.89 M/ L 4.63-6.08 HEMOGLOBIN (BEAKER) (test uhth=399) 11.5 GM/DL 13.7-17.5 HEMATOCRIT (BEAKER) (test dxtn=286) 35.5 % 40.1-51.0 MEAN CORPUSCULAR VOLUME (BEAKER) (test oujk=234) 91.3 fL 79.0-92.2 MEAN CORPUSCULAR HEMOGLOBIN (BEAKER) (test 29.6 pg 25.7-32.2 euay=851) MEAN CORPUSCULAR HEMOGLOBIN CONC (BEAKER) (test 32.4 GM/DL 32.3-36.5 geha=930) RED CELL DISTRIBUTION WIDTH (BEAKER) (test 14.6 % 11.6-14.4 qjre=186) PLATELET COUNT (BEAKER) (test lwaj=992) 355 K/CU MM 150-450 MEAN PLATELET VOLUME (BEAKER) (test cmcu=427) 10.8 fL 9.4-12.4 NUCLEATED RED BLOOD CELLS (BEAKER) (test 0 /100 WBC 0-0 srnf=268) (CELLAVISION MANUAL DIFF)2018-06-05 10:12:00 Test Item Value Reference Range Comments NEUTROPHILS - REL (CELLAVISION)(BEAKER) (test 75 % iatg=1576) LYMPHOCYTES - REL (CELLAVISION)(BEAKER) (test 11 % xnqi=8054) MONOCYTES - REL (CELLAVISION)(BEAKER) (test 9 % bwig=3642) EOSINOPHILS - REL (CELLAVISION)(BEAKER) (test 5 % gzez=4184) NEUTROPHILS - ABS (CELLAVISION)(BEAKER) (test 18.08 K/ul 1.78-5.38 xiat=4625) LYMPHOCYTES - ABS (CELLAVISION)(BEAKER) (test 2.65 K/ul 1.32-3.57 uvmr=3697) MONOCYTES - ABS (CELLAVISION)(BEAKER) (test 2.17 K/uL 0.30-0.82 mmog=7162) EOSINOPHILS - ABS (CELLAVISION)(BEAKER) (test 1.21 K/uL 0.04-0.54 pdut=2297) TOTAL COUNTED (BEAKER) (test scui=2578) 100 RBC MORPHOLOGY (BEAKER) (test sgqv=626) Normal WBC MORPHOLOGY (BEAKER) (test dcyw=738) Normal PLT MORPHOLOGY (BEAKER) (test rzjb=831) Normal ARTIFACT (CELLAVISION)(BEAKER) (test oaap=0987) Present PLATELET CONCENTRATION (CELLAVISION)(BEAKER) Adequate (test ycvz=3385) Received comment: User comments: Slide comments:[id number] 04:13:00 Test Item Value Reference Range Comments PROTIME (BEAKER) (test cpsf=149) 20.4 seconds 11.7-14.7 INR (BEAKER) (test fbnm=816) 1.9 <=5.9 PARTIAL THROMBOPLASTIN TIME (BEAKER) (test 45.0 seconds 22.5-36.0 ryxs=265) RECOMMENDED COUMADIN/WARFARIN INR THERAPY RANGESSTANDARD DOSE: 2.0 - 3.0 Includes: PROPHYLAXIS forvenous thrombosis, systemic embolization; TREATMENT for venous thrombosis and/or pulmonary embolus.HIGH RISK: Target INR is 2.5-3.5 for patients with mechanical heart valves.[id number] 04:12:00 Test Item Value Reference Range Comments MAGNESIUM (BEAKER) (test lbfj=891) 1.8 mg/dL 1.6-2.6 BASIC METABOLIC [id number] 04:12:00 Test Item Value Reference Range Comments SODIUM (BEAKER) (test 135 meq/L 136-145 zxuh=771) POTASSIUM (BEAKER) (test 3.4 meq/L 3.5-5.1 umkt=117) CHLORIDE (BEAKER) (test 102 meq/L 98-107 utgy=389) CO2 (BEAKER) (test 24 meq/L 22-29 rdmo=899) BLOOD UREA NITROGEN 9 mg/dL 7-21 (BEAKER) (test ezwg=796) CREATININE (BEAKER) (test 0.72 mg/dL 0.57-1.25 ctaj=697) GLUCOSE RANDOM (BEAKER) 120 mg/dL 70-105 (test xvtx=977) CALCIUM (BEAKER) (test 8.3 mg/dL 8.4-10.2 lfun=580) EGFR (BEAKER) (test 129 mL/min/1.73 sq m ESTIMATED GFR IS NOT ngyo=3682) ACCURATE CREATININE CLEARANCE IN PREDICTING GLOMERULAR FILTRATION RATE. ESTIMATED GFR IS NOT APPLICABLE FOR DIALYSIS PATIENTS. HEPATIC FUNCTION [id number] 04:12:00 Test Item Value Reference Range Comments TOTAL PROTEIN (BEAKER) (test xmsl=969) 6.3 gm/dL 6.0-8.3 ALBUMIN (BEAKER) (test zgqq=2514) 2.7 g/dL 3.5-5.0 BILIRUBIN TOTAL (BEAKER) (test uvtz=181) 2.3 mg/dL 0.2-1.2 BILIRUBIN DIRECT (BEAKER) (test osim=963) 1.7 mg/dL 0.1-0.5 ALKALINE PHOSPHATASE (BEAKER) (test dvuy=050) 126 U/L 40-150 AST (SGOT) (BEAKER) (test uinx=255) 93 U/L 5-34 ALT (SGPT) (BEAKER) (test tbvi=097) 55 U/L 6-55 PROTHROMBIN [id number] 04:12:00 Test Item Value Reference Range Comments PROTIME (BEAKER) (test dwlf=127) 20.4 seconds 11.7-14.7 INR (BEAKER) (test monp=839) 1.9 <=5.9 RECOMMENDED COUMADIN/WARFARIN INR THERAPY RANGESSTANDARD DOSE: 2.0 - 3.0 Includes: PROPHYLAXIS forvenous thrombosis, systemic embolization; TREATMENT for venous thrombosis and/or pulmonary embolus.HIGH RISK: Target INR is 2.5-3.5 for patients with mechanical heart valves.BLOOD [id number] 02:02:00 Test Item Value Reference Range Comments CULTURE (BEAKER) (test ncnw=8572) No growth in 5 days BLOOD [id number] 02:02:00 Test Item Value Reference Range Comments CULTURE (BEAKER) (test miyq=7067) No growth in 5 days CBC W/PLT COUNT & AUTO [id number] 22:18:00 Test Item Value Reference Range Comments WHITE BLOOD CELL COUNT (BEAKER) (test bffi=205) 20.1 K/ L 3.5-10.5 RED BLOOD CELL COUNT (BEAKER) (test rdqn=436) 4.01 M/ L 4.63-6.08 HEMOGLOBIN (BEAKER) (test yzyn=826) 11.9 GM/DL 13.7-17.5 HEMATOCRIT (BEAKER) (test jrjk=422) 36.7 % 40.1-51.0 MEAN CORPUSCULAR VOLUME (BEAKER) (test tivl=308) 91.5 fL 79.0-92.2 MEAN CORPUSCULAR HEMOGLOBIN (BEAKER) (test 29.7 pg 25.7-32.2 sezp=439) MEAN CORPUSCULAR HEMOGLOBIN CONC (BEAKER) (test 32.4 GM/DL 32.3-36.5 ogyo=772) RED CELL DISTRIBUTION WIDTH (BEAKER) (test 14.5 % 11.6-14.4 yifh=810) PLATELET COUNT (BEAKER) (test kset=103) 332 K/CU MM 150-450 MEAN PLATELET VOLUME (BEAKER) (test mhfb=033) 10.8 fL 9.4-12.4 NUCLEATED RED BLOOD CELLS (BEAKER) (test 0 /100 WBC 0-0 zhlj=033) (CELLAVISION MANUAL DIFF)2018-06-04 22:18:00 Test Item Value Reference Range Comments NEUTROPHILS - REL (CELLAVISION)(BEAKER) (test 79 % rcse=8015) LYMPHOCYTES - REL (CELLAVISION)(BEAKER) (test 6 % trrc=3947) MONOCYTES - REL (CELLAVISION)(BEAKER) (test 10 % cmun=5306) EOSINOPHILS - REL (CELLAVISION)(BEAKER) (test 1 % jrgd=6788) BANDS - REL (CELLAVISION)(BEAKER) (test 3 % 0-10 ivgf=9141) ATYPICAL LYMPHOCYTES - REL (CELLAVISION)(BEAKER) 1 % 0-0 (test wtcb=9590) NEUTROPHILS - ABS (CELLAVISION)(BEAKER) (test 15.88 K/ul 1.78-5.38 kpxs=2581) LYMPHOCYTES - ABS (CELLAVISION)(BEAKER) (test 1.21 K/ul 1.32-3.57 msce=7708) MONOCYTES - ABS (CELLAVISION)(BEAKER) (test 2.01 K/uL 0.30-0.82 foyr=2947) EOSINOPHILS - ABS (CELLAVISION)(BEAKER) (test 0.20 K/uL 0.04-0.54 kmyp=8416) BANDS - ABS (CELLAVISION)(BEAKER) (test 0.60 K/uL 0.00-0.80 zoxz=0232) ATYPICAL LYMPHOCYTES - ABS (CELLAVISION)(BEAKER) 0.20 K/uL 0.00-0.00 (test rjxj=5601) TOTAL COUNTED (BEAKER) (test ogxe=4708) 100 WBC MORPHOLOGY (BEAKER) (test umqs=315) Normal GIANT PLATELETS (BEAKER) (test ejbx=128) Present POLYCHROMATOPHILLIC RBCS(BEAKER) (test wzra=344) 1+ few ARTIFACT (CELLAVISION)(BEAKER) (test iyji=5468) Present PLATELET CONCENTRATION (CELLAVISION)(BEAKER) Adequate (test cizt=9233) Received comment: User comments: Slide comments:[id number] 14:28:00 Test Item Value Reference Range Comments PROCALCITONIN (BEAKER) (test fyzw=6967) 0.62 ng/mL <0.05 SEPSIS RISK (ng/mL)Low: 0.05-0.50Intermediate: 0.51-2.00High: & gt;=2.01LACTIC ACID, [id number] 14:07:00 Test Item Value Reference Range Comments LACTATE BLOOD VENOUS (2) 1.1 mmol/L 0.5-2.2 Specimen moderately hemolyzed (BEAKER) (test ofuv=0292) [id number] 06:34:00 Test Item Value Reference Range Comments MAGNESIUM (BEAKER) (test wxpc=787) 1.7 mg/dL 1.6-2.6 BASIC METABOLIC [id number] 06:34:00 Test Item Value Reference Range Comments SODIUM (BEAKER) (test 136 meq/L 136-145 htdy=601) POTASSIUM (BEAKER) (test 3.7 meq/L 3.5-5.1 efji=892) CHLORIDE (BEAKER) (test 103 meq/L 98-107 ytxt=252) CO2 (BEAKER) (test 24 meq/L 22-29 vorx=980) BLOOD UREA NITROGEN 10 mg/dL 7-21 (BEAKER) (test czos=358) CREATININE (BEAKER) (test 0.61 mg/dL 0.57-1.25 qwtf=016) GLUCOSE RANDOM (BEAKER) 131 mg/dL 70-105 (test fltp=514) CALCIUM (BEAKER) (test 8.5 mg/dL 8.4-10.2 epky=997) EGFR (BEAKER) (test 156 mL/min/1.73 sq m ESTIMATED GFR IS NOT bidr=2870) ACCURATE CREATININE CLEARANCE IN PREDICTING GLOMERULAR FILTRATION RATE. ESTIMATED GFR IS NOT APPLICABLE FOR DIALYSIS PATIENTS. HEPATIC FUNCTION [id number] 06:34:00 Test Item Value Reference Range Comments TOTAL PROTEIN (BEAKER) (test icla=277) 6.0 gm/dL 6.0-8.3 ALBUMIN (BEAKER) (test xnfb=8061) 2.6 g/dL 3.5-5.0 BILIRUBIN TOTAL (BEAKER) (test pvny=171) 2.0 mg/dL 0.2-1.2 BILIRUBIN DIRECT (BEAKER) (test hnwm=772) 1.6 mg/dL 0.1-0.5 ALKALINE PHOSPHATASE (BEAKER) (test ugzf=677) 117 U/L 40-150 AST (SGOT) (BEAKER) (test rtbz=888) 78 U/L 5-34 ALT (SGPT) (BEAKER) (test mcqy=727) 53 U/L 6-55 [id number] 06:06:00 Test Item Value Reference Range Comments PROTIME (BEAKER) (test emqu=996) 18.7 seconds 11.7-14.7 INR (BEAKER) (test kaxc=579) 1.7 <=5.9 PARTIAL THROMBOPLASTIN TIME (BEAKER) (test 38.7 seconds 22.5-36.0 ujgz=563) RECOMMENDED COUMADIN/WARFARIN INR THERAPY RANGESSTANDARD DOSE: 2.0 - 3.0 Includes: PROPHYLAXIS forvenous thrombosis, systemic embolization; TREATMENT for venous thrombosis and/or pulmonary embolus.HIGH RISK: Target INR is 2.5-3.5 for patients with mechanical heart valves.PROTHROMBIN [id number] 06:05: 00 Test Item Value Reference Range Comments PROTIME (BEAKER) (test texr=773) 18.7 seconds 11.7-14.7 INR (BEAKER) (test efge=367) 1.7 <=5.9 RECOMMENDED COUMADIN/WARFARIN INR THERAPY RANGESSTANDARD DOSE: 2.0 - 3.0 Includes: PROPHYLAXIS forvenous thrombosis, systemic embolization; TREATMENT for venous thrombosis and/or pulmonary embolus.HIGH RISK: Target INR is 2.5-3.5 for patients with mechanical heart valves.[id number] 06:22:00 Test Item Value Reference Range Comments MAGNESIUM (BEAKER) (test twkx=287) 1.8 mg/dL 1.6-2.6 BASIC METABOLIC [id number] 06:22:00 Test Item Value Reference Range Comments SODIUM (BEAKER) (test 135 meq/L 136-145 mcjr=405) POTASSIUM (BEAKER) (test 3.9 meq/L 3.5-5.1 eflz=212) CHLORIDE (BEAKER) (test 103 meq/L 98-107 lcbo=170) CO2 (BEAKER) (test 25 meq/L 22-29 guty=150) BLOOD UREA NITROGEN 12 mg/dL 7-21 (BEAKER) (test kcpo=561) CREATININE (BEAKER) (test 0.65 mg/dL 0.57-1.25 xkqc=759) GLUCOSE RANDOM (BEAKER) 135 mg/dL 70-105 (test imjy=735) CALCIUM (BEAKER) (test 8.1 mg/dL 8.4-10.2 xylx=483) EGFR (BEAKER) (test 145 mL/min/1.73 sq m ESTIMATED GFR IS NOT mruo=1796) ACCURATE CREATININE CLEARANCE IN PREDICTING GLOMERULAR FILTRATION RATE. ESTIMATED GFR IS NOT APPLICABLE FOR DIALYSIS PATIENTS. HEPATIC FUNCTION [id number] 06:22:00 Test Item Value Reference Range Comments TOTAL PROTEIN (BEAKER) (test cyyk=017) 6.1 gm/dL 6.0-8.3 ALBUMIN (BEAKER) (test fzpl=5698) 2.5 g/dL 3.5-5.0 BILIRUBIN TOTAL (BEAKER) (test lmvi=714) 2.3 mg/dL 0.2-1.2 BILIRUBIN DIRECT (BEAKER) (test kvdb=435) 1.7 mg/dL 0.1-0.5 ALKALINE PHOSPHATASE (BEAKER) (test noqp=318) 112 U/L 40-150 AST (SGOT) (BEAKER) (test hjer=503) 74 U/L 5-34 ALT (SGPT) (BEAKER) (test cbcg=956) 46 U/L 6-55 [id number] 06:08:00 Test Item Value Reference Range Comments PROTIME (BEAKER) (test fhfo=513) 17.4 seconds 11.7-14.7 INR (BEAKER) (test vijz=993) 1.5 <=5.9 PARTIAL THROMBOPLASTIN TIME (BEAKER) (test 39.9 seconds 22.5-36.0 jbtz=835) RECOMMENDED COUMADIN/WARFARIN INR THERAPY RANGESSTANDARD DOSE: 2.0 - 3.0 Includes: PROPHYLAXIS forvenous thrombosis, systemic embolization; TREATMENT for venous thrombosis and/or pulmonary embolus.HIGH RISK: Target INR is 2.5-3.5 for patients with mechanical heart valves.PROTHROMBIN [id number] 06:07: 00 Test Item Value Reference Range Comments PROTIME (BEAKER) (test xuww=845) 17.4 seconds 11.7-14.7 INR (BEAKER) (test nvtu=508) 1.5 <=5.9 RECOMMENDED COUMADIN/WARFARIN INR THERAPY RANGESSTANDARD DOSE: 2.0 - 3.0 Includes: PROPHYLAXIS forvenous thrombosis, systemic embolization; TREATMENT for venous thrombosis and/or pulmonary embolus.HIGH RISK: Target INR is 2.5-3.5 for patients with mechanical heart valves.CBC W/PLT COUNT & AUTO [id number] 05:56:00 Test Item Value Reference Range Comments WHITE BLOOD CELL COUNT (BEAKER) (test wsfm=111) 19.1 K/ L 3.5-10.5 RED BLOOD CELL COUNT (BEAKER) (test regv=529) 4.10 M/ L 4.63-6.08 HEMOGLOBIN (BEAKER) (test cjtq=237) 12.2 GM/DL 13.7-17.5 HEMATOCRIT (BEAKER) (test uwdv=959) 37.5 % 40.1-51.0 MEAN CORPUSCULAR VOLUME (BEAKER) (test dtpl=441) 91.5 fL 79.0-92.2 MEAN CORPUSCULAR HEMOGLOBIN (BEAKER) (test 29.8 pg 25.7-32.2 jbxq=912) MEAN CORPUSCULAR HEMOGLOBIN CONC (BEAKER) (test 32.5 GM/DL 32.3-36.5 wuoo=412) RED CELL DISTRIBUTION WIDTH (BEAKER) (test 14.4 % 11.6-14.4 uuhh=142) PLATELET COUNT (BEAKER) (test bbkf=106) 306 K/CU MM 150-450 MEAN PLATELET VOLUME (BEAKER) (test egoq=723) 10.9 fL 9.4-12.4 NUCLEATED RED BLOOD CELLS (BEAKER) (test 0 /100 WBC 0-0 vjjd=021) NEUTROPHILS RELATIVE PERCENT (BEAKER) (test 78 % gcwa=536) LYMPHOCYTES RELATIVE PERCENT (BEAKER) (test 9 % pzip=651) MONOCYTES RELATIVE PERCENT (BEAKER) (test 8 % drlo=729) EOSINOPHILS RELATIVE PERCENT (BEAKER) (test 2 % wynd=266) BASOPHILS RELATIVE PERCENT (BEAKER) (test 0 % hqhm=802) NEUTROPHILS ABSOLUTE COUNT (BEAKER) (test 14.83 K/ L 1.78-5.38 dkzo=688) LYMPHOCYTES ABSOLUTE COUNT (BEAKER) (test 1.66 K/ L 1.32-3.57 kscr=500) MONOCYTES ABSOLUTE COUNT (BEAKER) (test 1.48 K/ L 0.30-0.82 wgku=560) EOSINOPHILS ABSOLUTE COUNT (BEAKER) (test 0.32 K/ L 0.04-0.54 nocw=795) BASOPHILS ABSOLUTE COUNT (BEAKER) (test 0.07 K/ L 0.01-0.08 mwhr=282) IMMATURE GRANULOCYTES-RELATIVE PERCENT (BEAKER) 4 % 0-1 (test msvn=8199) CBC W/PLT COUNT & AUTO [id number] 04:50:00 Test Item Value Reference Range Comments WHITE BLOOD CELL COUNT (BEAKER) (test ufqw=498) 16.6 K/ L 3.5-10.5 RED BLOOD CELL COUNT (BEAKER) (test uagn=443) 3.82 M/ L 4.63-6.08 HEMOGLOBIN (BEAKER) (test tvdy=621) 11.3 GM/DL 13.7-17.5 HEMATOCRIT (BEAKER) (test flmi=768) 35.6 % 40.1-51.0 MEAN CORPUSCULAR VOLUME (BEAKER) (test vsfi=040) 93.2 fL 79.0-92.2 MEAN CORPUSCULAR HEMOGLOBIN (BEAKER) (test 29.6 pg 25.7-32.2 cdek=042) MEAN CORPUSCULAR HEMOGLOBIN CONC (BEAKER) (test 31.7 GM/DL 32.3-36.5 ncrq=992) RED CELL DISTRIBUTION WIDTH (BEAKER) (test 14.3 % 11.6-14.4 kxyz=856) PLATELET COUNT (BEAKER) (test ghvq=249) 240 K/CU MM 150-450 MEAN PLATELET VOLUME (BEAKER) (test dags=885) 11.0 fL 9.4-12.4 NUCLEATED RED BLOOD CELLS (BEAKER) (test 0 /100 WBC 0-0 evzm=391) NEUTROPHILS RELATIVE PERCENT (BEAKER) (test 76 % ijkh=326) LYMPHOCYTES RELATIVE PERCENT (BEAKER) (test 11 % qvky=928) MONOCYTES RELATIVE PERCENT (BEAKER) (test 8 % emht=344) EOSINOPHILS RELATIVE PERCENT (BEAKER) (test 2 % mzpd=155) BASOPHILS RELATIVE PERCENT (BEAKER) (test 0 % cqii=013) NEUTROPHILS ABSOLUTE COUNT (BEAKER) (test 12.63 K/ L 1.78-5.38 ktga=236) LYMPHOCYTES ABSOLUTE COUNT (BEAKER) (test 1.90 K/ L 1.32-3.57 aezr=657) MONOCYTES ABSOLUTE COUNT (BEAKER) (test 1.29 K/ L 0.30-0.82 xhsh=665) EOSINOPHILS ABSOLUTE COUNT (BEAKER) (test 0.32 K/ L 0.04-0.54 yeud=339) BASOPHILS ABSOLUTE COUNT (BEAKER) (test 0.06 K/ L 0.01-0.08 jbnk=952) IMMATURE GRANULOCYTES-RELATIVE PERCENT (BEAKER) 2 % 0-1 (test cbqd=8393) [id number] 04:26:00 Test Item Value Reference Range Comments MAGNESIUM (BEAKER) (test cxyd=778) 1.7 mg/dL 1.6-2.6 BASIC METABOLIC [id number] 04:26:00 Test Item Value Reference Range Comments SODIUM (BEAKER) (test 137 meq/L 136-145 skem=327) POTASSIUM (BEAKER) (test 3.7 meq/L 3.5-5.1 coxx=082) CHLORIDE (BEAKER) (test 106 meq/L 98-107 cdnn=522) CO2 (BEAKER) (test 25 meq/L 22-29 rmwo=211) BLOOD UREA NITROGEN 10 mg/dL 7-21 (BEAKER) (test hpbt=812) CREATININE (BEAKER) (test 0.68 mg/dL 0.57-1.25 nhuc=993) GLUCOSE RANDOM (BEAKER) 137 mg/dL 70-105 (test qriw=345) CALCIUM (BEAKER) (test 8.2 mg/dL 8.4-10.2 bkje=962) EGFR (BEAKER) (test 138 mL/min/1.73 sq m ESTIMATED GFR IS NOT yeuj=2443) ACCURATE CREATININE CLEARANCE IN PREDICTING GLOMERULAR FILTRATION RATE. ESTIMATED GFR IS NOT APPLICABLE FOR DIALYSIS PATIENTS. HEPATIC FUNCTION [id number] 04:26:00 Test Item Value Reference Range Comments TOTAL PROTEIN (BEAKER) (test rluc=048) 5.9 gm/dL 6.0-8.3 ALBUMIN (BEAKER) (test aero=4134) 2.6 g/dL 3.5-5.0 BILIRUBIN TOTAL (BEAKER) (test qzdd=236) 2.3 mg/dL 0.2-1.2 BILIRUBIN DIRECT (BEAKER) (test jzdu=853) 1.8 mg/dL 0.1-0.5 ALKALINE PHOSPHATASE (BEAKER) (test aiqc=387) 111 U/L 40-150 AST (SGOT) (BEAKER) (test qdkj=245) 88 U/L 5-34 ALT (SGPT) (BEAKER) (test hmsx=818) 54 U/L 6-55 [id number] 04:11:00 Test Item Value Reference Range Comments PROTIME (BEAKER) (test mbla=732) 17.3 seconds 11.7-14.7 INR (BEAKER) (test hnnf=981) 1.5 <=5.9 PARTIAL THROMBOPLASTIN TIME (BEAKER) (test 34.7 seconds 22.5-36.0 oupi=555) RECOMMENDED COUMADIN/WARFARIN INR THERAPY RANGESSTANDARD DOSE: 2.0 - 3.0 Includes: PROPHYLAXIS forvenous thrombosis, systemic embolization; TREATMENT for venous thrombosis and/or pulmonary embolus.HIGH RISK: Target INR is 2.5-3.5 for patients with mechanical heart valves.PROTHROMBIN [id number] 04:10: 00 Test Item Value Reference Range Comments PROTIME (BEAKER) (test bhvc=951) 17.3 seconds 11.7-14.7 INR (BEAKER) (test unhl=173) 1.5 <=5.9 RECOMMENDED COUMADIN/WARFARIN INR THERAPY RANGESSTANDARD DOSE: 2.0 - 3.0 Includes: PROPHYLAXIS forvenous thrombosis, systemic embolization; TREATMENT for venous thrombosis and/or pulmonary embolus.HIGH RISK: Target INR is 2.5-3.5 for patients with mechanical heart valves.U/S, ABDOMINAL, [id number] 14: 19:00Abdomen limited area? Add comment if [...] dilatation. 2. Fatty liver. Signed: Josy Albert Verified Date/Time: 06/01/2018 14:19:45 Reading Location: [address] Reading Room CBC W/PLT COUNT & AUTO [id number] 06:28:00 Test Item Value Reference Range Comments WHITE BLOOD CELL COUNT (BEAKER) (test pidf=115) 14.2 K/ L 3.5-10.5 RED BLOOD CELL COUNT (BEAKER) (test upbv=541) 4.02 M/ L 4.63-6.08 HEMOGLOBIN (BEAKER) (test cwfu=869) 11.8 GM/DL 13.7-17.5 HEMATOCRIT (BEAKER) (test cedn=118) 37.3 % 40.1-51.0 MEAN CORPUSCULAR VOLUME (BEAKER) (test zuzf=706) 92.8 fL 79.0-92.2 MEAN CORPUSCULAR HEMOGLOBIN (BEAKER) (test 29.4 pg 25.7-32.2 rfxp=578) MEAN CORPUSCULAR HEMOGLOBIN CONC (BEAKER) (test 31.6 GM/DL 32.3-36.5 rktw=612) RED CELL DISTRIBUTION WIDTH (BEAKER) (test 14.4 % 11.6-14.4 xlbi=727) PLATELET COUNT (BEAKER) (test wjvp=329) 235 K/CU MM 150-450 MEAN PLATELET VOLUME (BEAKER) (test doqp=749) 11.4 fL 9.4-12.4 NUCLEATED RED BLOOD CELLS (BEAKER) (test 0 /100 WBC 0-0 aatw=441) NEUTROPHILS RELATIVE PERCENT (BEAKER) (test 79 % tytx=937) LYMPHOCYTES RELATIVE PERCENT (BEAKER) (test 10 % qiod=576) MONOCYTES RELATIVE PERCENT (BEAKER) (test 8 % qgfd=392) EOSINOPHILS RELATIVE PERCENT (BEAKER) (test 1 % flgm=257) BASOPHILS RELATIVE PERCENT (BEAKER) (test 0 % wysk=631) NEUTROPHILS ABSOLUTE COUNT (BEAKER) (test 11.26 K/ L 1.78-5.38 wpui=060) LYMPHOCYTES ABSOLUTE COUNT (BEAKER) (test 1.46 K/ L 1.32-3.57 ltro=658) MONOCYTES ABSOLUTE COUNT (BEAKER) (test 1.20 K/ L 0.30-0.82 gbeq=915) EOSINOPHILS ABSOLUTE COUNT (BEAKER) (test 0.12 K/ L 0.04-0.54 wloz=089) BASOPHILS ABSOLUTE COUNT (BEAKER) (test 0.05 K/ L 0.01-0.08 vrta=517) IMMATURE GRANULOCYTES-RELATIVE PERCENT (BEAKER) 1 % 0-1 (test lhmt=3209) [id number] 05:51:00 Test Item Value Reference Range Comments MAGNESIUM (BEAKER) (test fxxq=744) 2.0 mg/dL 1.6-2.6 BASIC METABOLIC [id number] 05:51:00 Test Item Value Reference Range Comments SODIUM (BEAKER) (test 140 meq/L 136-145 prff=303) POTASSIUM (BEAKER) (test 3.8 meq/L 3.5-5.1 vwre=845) CHLORIDE (BEAKER) (test 106 meq/L 98-107 hbwp=423) CO2 (BEAKER) (test 27 meq/L 22-29 ujhy=054) BLOOD UREA NITROGEN 13 mg/dL 7-21 (BEAKER) (test wgzk=265) CREATININE (BEAKER) (test 0.69 mg/dL 0.57-1.25 xxus=178) GLUCOSE RANDOM (BEAKER) 140 mg/dL 70-105 (test mtkx=288) CALCIUM (BEAKER) (test 8.2 mg/dL 8.4-10.2 vwud=954) EGFR (BEAKER) (test 136 mL/min/1.73 sq m ESTIMATED GFR IS NOT iqln=8836) ACCURATE CREATININE CLEARANCE IN PREDICTING GLOMERULAR FILTRATION RATE. ESTIMATED GFR IS NOT APPLICABLE FOR DIALYSIS PATIENTS. Specimen slightly ictericHEPATIC FUNCTION [id number] 05:51:00 Test Item Value Reference Range Comments TOTAL PROTEIN (BEAKER) (test lzsy=980) 5.9 gm/dL 6.0-8.3 ALBUMIN (BEAKER) (test kvvs=9443) 2.6 g/dL 3.5-5.0 BILIRUBIN TOTAL (BEAKER) (test wpuk=714) 4.1 mg/dL 0.2-1.2 BILIRUBIN DIRECT (BEAKER) (test odez=522) 3.2 mg/dL 0.1-0.5 ALKALINE PHOSPHATASE (BEAKER) (test oiqw=522) 103 U/L 40-150 AST (SGOT) (BEAKER) (test tthx=650) 95 U/L 5-34 ALT (SGPT) (BEAKER) (test ghps=749) 48 U/L 6-55 Specimen slightly ictericPT/[id number] 05:30:00 Test Item Value Reference Range Comments PROTIME (BEAKER) (test cylp=955) 16.0 seconds 11.7-14.7 INR (BEAKER) (test gsve=575) 1.3 <=5.9 PARTIAL THROMBOPLASTIN TIME (BEAKER) (test 38.9 seconds 22.5-36.0 awbl=748) RECOMMENDED COUMADIN/WARFARIN INR THERAPY RANGESSTANDARD DOSE: 2.0 - 3.0 Includes: PROPHYLAXIS forvenous thrombosis, systemic embolization; TREATMENT for venous thrombosis and/or pulmonary embolus.HIGH RISK: Target INR is 2.5-3.5 for patients with mechanical heart valves.PROTHROMBIN TIME/[id number] 05:29: 00 Test Item Value Reference Range Comments PROTIME (BEAKER) (test gpmw=570) 16.0 seconds 11.7-14.7 INR (BEAKER) (test dmws=200) 1.3 <=5.9 RECOMMENDED COUMADIN/WARFARIN INR THERAPY RANGESSTANDARD DOSE: 2.0 - 3.0 Includes: PROPHYLAXIS forvenous thrombosis, systemic embolization; TREATMENT for venous thrombosis and/or pulmonary embolus.HIGH RISK: Target INR is 2.5-3.5 for patients with mechanical heart valves.RAD, CHEST, 1 VIEW, NON [id number] 11:58:00Reason for exam:->pancreatitisShould this be performed [...] MDReport Verified Date/Time: 05/31/2018 11:58:54 Reading Location: [facility] Radiology Reading Room CBC W/PLT COUNT & AUTO [id number] 08:44:00 Test Item Value Reference Range Comments WHITE BLOOD CELL COUNT (BEAKER) (test nhhn=931) 21.6 K/ L 3.5-10.5 RED BLOOD CELL COUNT (BEAKER) (test xqyr=648) 4.15 M/ L 4.63-6.08 HEMOGLOBIN (BEAKER) (test qitm=437) 12.3 GM/DL 13.7-17.5 HEMATOCRIT (BEAKER) (test eisp=550) 38.0 % 40.1-51.0 MEAN CORPUSCULAR VOLUME (BEAKER) (test wrwf=310) 91.6 fL 79.0-92.2 MEAN CORPUSCULAR HEMOGLOBIN (BEAKER) (test 29.6 pg 25.7-32.2 driu=463) MEAN CORPUSCULAR HEMOGLOBIN CONC (BEAKER) (test 32.4 GM/DL 32.3-36.5 xrkm=441) RED CELL DISTRIBUTION WIDTH (BEAKER) (test 13.9 % 11.6-14.4 ccmb=656) PLATELET COUNT (BEAKER) (test snzs=741) 232 K/CU MM 150-450 MEAN PLATELET VOLUME (BEAKER) (test fobn=030) 11.4 fL 9.4-12.4 NUCLEATED RED BLOOD CELLS (BEAKER) (test 0 /100 WBC 0-0 iwlh=524) (CELLAVISION MANUAL DIFF)2018-05-31 08:44:00 Test Item Value Reference Range Comments NEUTROPHILS - REL (CELLAVISION)(BEAKER) (test 63 % qrrk=6254) LYMPHOCYTES - REL (CELLAVISION)(BEAKER) (test 5 % kahd=9139) MONOCYTES - REL (CELLAVISION)(BEAKER) (test 13 % ldkw=7675) EOSINOPHILS - REL (CELLAVISION)(BEAKER) (test 1 % ooam=8344) BANDS - REL (CELLAVISION)(BEAKER) (test 18 % 0-10 qnud=4407) NEUTROPHILS - ABS (CELLAVISION)(BEAKER) (test 13.61 K/ul 1.78-5.38 pupk=2378) LYMPHOCYTES - ABS (CELLAVISION)(BEAKER) (test 1.08 K/ul 1.32-3.57 usah=9694) MONOCYTES - ABS (CELLAVISION)(BEAKER) (test 2.81 K/uL 0.30-0.82 exnp=4978) EOSINOPHILS - ABS (CELLAVISION)(BEAKER) (test 0.22 K/uL 0.04-0.54 omkv=0057) BANDS - ABS (CELLAVISION)(BEAKER) (test 3.89 K/uL 0.00-0.80 oxaw=8515) TOTAL COUNTED (BEAKER) (test vude=3929) 100 RBC MORPHOLOGY (BEAKER) (test yrhl=565) Normal SMUDGE CELLS (BEAKER) (test rxzl=3711) Present GIANT PLATELETS (BEAKER) (test geiv=224) Present ARTIFACT (CELLAVISION)(BEAKER) (test yhzv=7984) Present PLATELET CONCENTRATION (CELLAVISION)(BEAKER) Adequate (test izop=3886) Received comment: User comments: Slide comments:[id number] 04:27:00 Test Item Value Reference Range Comments MAGNESIUM (BEAKER) (test hsaw=873) 1.6 mg/dL 1.6-2.6 BASIC METABOLIC [id number] 04:27:00 Test Item Value Reference Range Comments SODIUM (BEAKER) (test 139 meq/L 136-145 ewrq=045) POTASSIUM (BEAKER) (test 3.7 meq/L 3.5-5.1 pfna=419) CHLORIDE (BEAKER) (test 101 meq/L 98-107 xaoi=150) CO2 (BEAKER) (test 28 meq/L 22-29 dbgm=148) BLOOD UREA NITROGEN 21 mg/dL 7-21 (BEAKER) (test ejrs=455) CREATININE (BEAKER) (test 0.80 mg/dL 0.57-1.25 mxud=662) GLUCOSE RANDOM (BEAKER) 135 mg/dL 70-105 (test tqsl=608) CALCIUM (BEAKER) (test 8.0 mg/dL 8.4-10.2 cwcn=254) EGFR (BEAKER) (test 114 mL/min/1.73 sq m ESTIMATED GFR IS NOT cjvk=3886) ACCURATE CREATININE CLEARANCE IN PREDICTING GLOMERULAR FILTRATION RATE. ESTIMATED GFR IS NOT APPLICABLE FOR DIALYSIS PATIENTS. Specimen moderately ictericHEPATIC FUNCTION [id number] 04:27:00 Test Item Value Reference Range Comments TOTAL PROTEIN (BEAKER) (test hfxq=112) 6.1 gm/dL 6.0-8.3 ALBUMIN (BEAKER) (test pxfx=5182) 2.7 g/dL 3.5-5.0 BILIRUBIN TOTAL (BEAKER) (test dbcg=841) 5.2 mg/dL 0.2-1.2 BILIRUBIN DIRECT (BEAKER) (test aosx=063) 4.1 mg/dL 0.1-0.5 ALKALINE PHOSPHATASE (BEAKER) (test kgyk=572) 80 U/L 40-150 AST (SGOT) (BEAKER) (test hcwl=816) 39 U/L 5-34 ALT (SGPT) (BEAKER) (test mtsp=917) 29 U/L 6-55 Specimen moderately ictericPT/[id number] 04:15:00 Test Item Value Reference Range Comments PROTIME (BEAKER) (test dmws=271) 17.0 seconds 11.7-14.7 INR (BEAKER) (test uqmb=484) 1.4 <=5.9 PARTIAL THROMBOPLASTIN TIME (BEAKER) (test 39.4 seconds 22.5-36.0 fucm=063) RECOMMENDED COUMADIN/WARFARIN INR THERAPY RANGESSTANDARD DOSE: 2.0 - 3.0 Includes: PROPHYLAXIS forvenous thrombosis, systemic embolization; TREATMENT for venous thrombosis and/or pulmonary embolus.HIGH RISK: Target INR is 2.5-3.5 for patients with mechanical heart valves.PROTHROMBIN TIME/[id number] 04:14: 00 Test Item Value Reference Range Comments PROTIME (BEAKER) (test esoz=337) 17.0 seconds 11.7-14.7 INR (BEAKER) (test apso=047) 1.4 <=5.9 RECOMMENDED COUMADIN/WARFARIN INR THERAPY RANGESSTANDARD DOSE: 2.0 - 3.0 Includes: PROPHYLAXIS forvenous thrombosis, systemic embolization; TREATMENT for venous thrombosis and/or pulmonary embolus.HIGH RISK: Target INR is 2.5-3.5 for patients with mechanical heart valves.URINALYSIS W/ REFLEX URINE [id number] 21:53:00 Test Item Value Reference Range Comments COLOR (BEAKER) (test gnmy=902) Dark Yellow CLARITY (BEAKER) (test sker=941) Clear SPECIFIC GRAVITY UA (BEAKER) (test qwaz=264) 1.050 1.001-1.035 PH UA (BEAKER) (test qlkd=532) 6.5 5.0-8.0 PROTEIN UA (BEAKER) (test boti=670) 100 mg/dL Negative GLUCOSE UA (BEAKER) (test ygdb=038) Negative Negative KETONES UA (BEAKER) (test ufyq=638) 80 mg/dL Negative BILIRUBIN UA (BEAKER) (test cces=409) Positive Negative BLOOD UA (BEAKER) (test ibqr=788) Small Negative NITRITE UA (BEAKER) (test ypgd=983) Negative Negative LEUKOCYTE ESTERASE UA (BEAKER) (test wxkd=573) Negative Negative UROBILINOGEN UA (BEAKER) (test qdwn=120) 2.0 mg/dL 0.2-1.0 RBC UA (BEAKER) (test mhgn=197) 20 /HPF WBC UA (BEAKER) (test bmss=736) 1 /HPF SQUAMOUS EPITHELIAL (BEAKER) (test xrkh=011) < /HPF CRYSTALS, URINE (BEAKER) (test dezx=8448) Rare SOURCE(BEAKER) (test gkbl=1303) CBC W/PLT COUNT & AUTO [id number] 21:33:00 Test Item Value Reference Range Comments WHITE BLOOD CELL COUNT (BEAKER) (test urqi=207) 26.6 K/ L 3.5-10.5 RED BLOOD CELL COUNT (BEAKER) (test fjlg=380) 4.57 M/ L 4.63-6.08 HEMOGLOBIN (BEAKER) (test dyxo=095) 13.6 GM/DL 13.7-17.5 HEMATOCRIT (BEAKER) (test unhh=715) 41.6 % 40.1-51.0 MEAN CORPUSCULAR VOLUME (BEAKER) (test khzw=373) 91.0 fL 79.0-92.2 MEAN CORPUSCULAR HEMOGLOBIN (BEAKER) (test 29.8 pg 25.7-32.2 tjaw=945) MEAN CORPUSCULAR HEMOGLOBIN CONC (BEAKER) (test 32.7 GM/DL 32.3-36.5 zihw=169) RED CELL DISTRIBUTION WIDTH (BEAKER) (test 14.1 % 11.6-14.4 apia=892) PLATELET COUNT (BEAKER) (test lumk=012) 287 K/CU MM 150-450 MEAN PLATELET VOLUME (BEAKER) (test ourw=384) 11.8 fL 9.4-12.4 NUCLEATED RED BLOOD CELLS (BEAKER) (test 0 /100 WBC 0-0 tlys=048) (CELLAVISION MANUAL DIFF)2018-05-30 21:33:00 Test Item Value Reference Range Comments NEUTROPHILS - REL (CELLAVISION)(BEAKER) (test 84 % grcv=6041) LYMPHOCYTES - REL (CELLAVISION)(BEAKER) (test 4 % qqoq=6845) MONOCYTES - REL (CELLAVISION)(BEAKER) (test 6 % plbl=1400) EOSINOPHILS - REL (CELLAVISION)(BEAKER) (test 1 % atss=9097) BANDS - REL (CELLAVISION)(BEAKER) (test 5 % 0-10 tgua=0955) NEUTROPHILS - ABS (CELLAVISION)(BEAKER) (test 22.34 K/ul 1.78-5.38 eyku=7855) LYMPHOCYTES - ABS (CELLAVISION)(BEAKER) (test 1.06 K/ul 1.32-3.57 mtii=1709) MONOCYTES - ABS (CELLAVISION)(BEAKER) (test 1.60 K/uL 0.30-0.82 ascx=1354) EOSINOPHILS - ABS (CELLAVISION)(BEAKER) (test 0.27 K/uL 0.04-0.54 ijrt=6264) BANDS - ABS (CELLAVISION)(BEAKER) (test 1.33 K/uL 0.00-0.80 qfiy=2613) TOTAL COUNTED (BEAKER) (test qpba=2489) 100 RBC MORPHOLOGY (BEAKER) (test idan=045) Normal SMUDGE CELLS (BEAKER) (test rhlo=4434) Present GIANT PLATELETS (BEAKER) (test wsjl=907) Present VACUOLATED NEUTROPHILS (BEAKER) (test vaev=402) Present ARTIFACT (CELLAVISION)(BEAKER) (test nhxe=7713) Present PLATELET CONCENTRATION (CELLAVISION)(BEAKER) Adequate (test juun=1536) Received comment: User comments: Slide comments:TROPONIN [id number] 21:32:00 Test Item Value Reference Range Comments TROPONIN I (BEAKER) (test ivtg=578) < ng/mL 0.00-0.03 Troponin I (TnI) levels [...] acute neurological disease, and persistent tachyarrhythmia.BASIC METABOLIC [id number] 21:29:00 Test Item Value Reference Range Comments SODIUM (BEAKER) (test 134 meq/L 136-145 vuue=539) POTASSIUM (BEAKER) (test 3.6 meq/L 3.5-5.1 iswi=371) CHLORIDE (BEAKER) (test 99 meq/L 98-107 fglc=075) CO2 (BEAKER) (test 25 meq/L 22-29 qhfo=673) BLOOD UREA NITROGEN 25 mg/dL 7-21 (BEAKER) (test uqgb=639) CREATININE (BEAKER) (test 0.80 mg/dL 0.57-1.25 jtmt=885) GLUCOSE RANDOM (BEAKER) 144 mg/dL 70-105 (test ufsi=618) CALCIUM (BEAKER) (test 7.8 mg/dL 8.4-10.2 iegr=216) EGFR (BEAKER) (test 114 mL/min/1.73 sq m ESTIMATED GFR IS NOT ptmr=4018) ACCURATE CREATININE CLEARANCE IN PREDICTING GLOMERULAR FILTRATION RATE. ESTIMATED GFR IS NOT APPLICABLE FOR DIALYSIS PATIENTS. Specimen moderately [id number] 21:27:00 Test Item Value Reference Range Comments MAGNESIUM (BEAKER) (test dfbm=706) 1.6 mg/dL 1.6-2.6 LIPID [id number] 21:27:00 Test Item Value Reference Range Comments TRIGLYCERIDES (BEAKER) (test kqdi=322) 102 mg/dL CHOLESTEROL (BEAKER) (test avzh=203) 101 mg/dL HDL CHOLESTEROL (BEAKER) (test ptax=823) 17 mg/dL LDL CHOLESTEROL CALCULATED (BEAKER) (test 64 mg/dL xjkt=111) Triglyceride Reference Range: Low Risk <150 Borderline 150- 199 High Risk 200-499 Very High Risk >=500Cholesterol Reference Range: Low Risk <200 Borderline 200-239 High Risk > 240HDL Cholesterol Reference Range: Low Risk >=60 High Risk <40LDL Cholesterol Reference Range: Optimal <100 Near Optimal 100-129 Borderline 130-159 High 160-189 Very High >=190 Specimen moderatelyictericHEPATIC FUNCTION [id number] 21:27: 00 Test Item Value Reference Range Comments TOTAL PROTEIN (BEAKER) (test hohu=141) 6.5 gm/dL 6.0-8.3 ALBUMIN (BEAKER) (test arky=6810) 2.9 g/dL 3.5-5.0 BILIRUBIN TOTAL (BEAKER) (test qmpf=073) 5.1 mg/dL 0.2-1.2 BILIRUBIN DIRECT (BEAKER) (test bwwy=458) 3.9 mg/dL 0.1-0.5 ALKALINE PHOSPHATASE (BEAKER) (test hnfd=093) 87 U/L 40-150 AST (SGOT) (BEAKER) (test jusc=716) 38 U/L 5-34 ALT (SGPT) (BEAKER) (test ffqu=903) 28 U/L 6-55 Specimen moderately ictericGAMMA GLUTAMYL TRANSFERASE (GGT)2018-05-30 21:27:00 Test Item Value Reference Range Comments GAMMA GLUTAMYL TRANSFERASE (BEAKER) (test kcgi=083) 55 U/L 9-64 Specimen moderately [id number] 21:27:00 Test Item Value Reference Range Comments LIPASE (BEAKER) (test pkpo=474) 227 U/L 8-78 Specimen moderately ictericPROTHROMBIN [id number] 21:05:00 Test Item Value Reference Range Comments PROTIME (BEAKER) (test bnpn=262) 17.1 seconds 11.7-14.7 INR (BEAKER) (test nfoq=484) 1.4 <=5.9 RECOMMENDED COUMADIN/WARFARIN INR THERAPY RANGESSTANDARD DOSE: 2.0 - 3.0 Includes: PROPHYLAXIS forvenous thrombosis, systemic embolization; TREATMENT for venous thrombosis and/or pulmonary embolus.HIGH RISK: Target INR is 2.5-3.5 for patients with mechanical heart valves.
--- NOTE | 2019-02-13 18:35 | RAD REPORT ---
EXAM DESCRIPTION: US - Abdomen Exam Limited - 02/13/2019 6:23 pm CLINICAL HISTORY: abdominal pain, jaundice COMPARISON: Abdomen Exam Limited dated 05/30/2018 FINDINGS: The gallbladder demonstrates no gallstones. No pericholecystic fluid or gallbladder wall t hickening. The common bile duct is normal measuring 4 mm. The liver demonstrates no findings of intrahepatic biliary dilatation. IMPRESSION: Unremarkable examination.
[2019-02-13 19:00] LABS: Hematocrit 29.6 % (39.6-49.0); MPV 8.5 fL (7.6-11.3); RBC Red Blood Cell Count 3.19 M/uL (4.33-5.43)
[2019-02-13 19:07] LABS: Anisocytosis 3+; Blood Morphology Comment NOTED (NOT SEEN); Platelet Estimate ADEQ
[2019-02-13 19:08] LABS: Ovalocytes 1+
[2019-02-13 19:10] LABS: Absolute Lymphocytes (CBC) 1.1 K/uL (0.7-4.9)
[2019-02-13 19:17] LABS: Urine Blood NEGATIVE (NEG); Urine Glucose TRACE (NEG); Urine Protein 1+ (NEG)
[2019-02-13 19:21] LABS: Protime INR 1.83
[2019-02-13 19:35] LABS: ALT/SGPT 50 U/L (12-78); AST/SGOT 61 U/L (15-37); Albumin 1.7 g/dL (3.4-5.0); Alkaline Phosphatase 1279 U/L (45-117); BUN Blood Urea Nitrogen 10 mg/dL (7-18); Bicarbonate 29 mmol/L (21-32); Bilirubin Direct 4.2 mg/dL (0-0.2); Bilirubin Total 4.6 mg/dL (0.2-1.0); Glucose Level 141 mg/dL (74-106); Lipase 376 U/L (73-393); Potassium 4.1 mmol/L (3.5-5.1); Protein, Total 6.5 g/dL (6.4-8.2); Sodium Level 138 mmol/L (136-145)
[2019-02-13 19:40] LABS: Urine Bacteria 20-50 /HPF (NONE SEEN); Urine Culture Reflex Order REFLEXED; Urine Mucus 2+ /HPF (NONE SEEN); Urine RBC <5 /HPF (NONE SEEN)
[2019-02-13 19:41] LABS: Calcium Oxalate Crystals- Ur MODERATE (NONE SEEN)
[2019-02-13 19:42] LABS: Urine Other Components MODERATE (NONE SEEN)
--- NOTE | 2019-02-13 20:19 | RAD REPORT ---
EXAM DESCRIPTION: CTAbdomen Pelvis W Contrast - 02/13/2019 8:06 pm CLINICAL HISTORY: Abdominal pain. abdominal pain COMPARISON: Abdomen Pelvis W Contrast dated 07/26/2018; Abdomen Pelvis W Contrast dated 07/09/2018; Abdomen Pelvis W Contrast dated 05/30/2018 TECHNIQUE: Biphasic CT imaging of the abdomen and pelvis was performed with 100 ml non-ionic IV cont rast. All CT scans are performed using dose optimization technique as appropriate and may include automated exposure control or mA/KV adjustment according to patient size. FINDINGS: Small left pleural effusion. The liver demonstrates moderate intrahepatic biliary dilatation. The gallbladder appears mildly diste nded. There is a fairly abrupt caliber change of the common bile duct as it traverses the pancreatic head. Internal drainage catheter is noted between the body of the stomach the the tail of the pancrea s. Mild free fluid is seen in the left upper quadrant surrounding the spleen. Pancreatic parenchyma i tself shows slight edema. The spleen, adrenal glands and kidneys show no acute process. No bowel obstruction seen. Small amount of free fluid is seen layering in the pelvis. The appendix is normal. Moderate stool is present in t he colon. No evidence of significant lymphadenopathy. No suspicious bony findings. IMPRESSION: Moderate intrahepatic biliary dilatation is seen with an abrupt caliber change of the di stal common bile duct noted as it traverses the pancreatic head. This may indicate the presence of in traluminal debris, stone or CBD stricture. Followup MRCP would be of value for further workup.
[2019-02-13] MEDS ORDERED: NA CHLORIDE 0.9% 1,000 ML ONE (21:52)
--- NOTE | 2019-02-13 21:53 | ER ---
Nurse's Notes [facility] Name: Jann Alvarez Age: 29 yrs Sex: Male : 1990 Arrival Date: 02/13/2019 Time: 17:37 Bed 18 Private MD: Zac Coughlin Diagnosis: Generalized abdominal pain;Common Bile Duct Obstruction Presentation: 02/13 17:40 Presenting complaint: Mother states: Abdominal pain that began several months ago, is sg intermittent. Hx of having Pancreatitis, Cholecystis. Transition of care: patient was not received from another setting of care. Onset of symptoms was February 13, 2019. Risk Assessment: Do you want to hurt yourself or someone else? Patient reports no desire to harm self or others. Initial Sepsis Screen: Does the patient meet any 2 criteria? No. Patient's initial sepsis screen is negative. Does the patient have a suspected source of infection? No. Patient's initial sepsis screen is negative. Care prior to arrival: None. 17:40 Method Of Arrival: Ambulatory sg 17:40 Acuity: KIMBER 3 sg Historical: - Allergies: 17:44 meropenem; sg 17:44 Vancomycin; sg 17:44 Zosyn; sg - PMHx: 17:44 Autism; Lupus; Pancreatitis; sg - PSHx: 17:44 ALLEY drain/removed; ERCP; gall bladder stent x1; sg - Immunization history:: Adult Immunizations up to date. - Social history:: Smoking status: Patient/guardian denies using tobacco. - Ebola Screening: : Patient negative for fever greater than or equal to 101.5 degrees Fahrenheit, and additional compatible Ebola Virus Disease symptoms Patient denies exposure to infectious person Patient denies travel to an Ebola-affected area in the 21 days before illness onset No symptoms or risks identified at this time. Screenin:50 Abuse screen: Denies threats or abuse. Denies injuries from another. Nutritional ca1 screening: No deficits noted. Tuberculosis screening: No symptoms or risk factors identified. Fall Risk IV access (20 points). Assessment: 17:50 General: Appears in no apparent distress. comfortable, Behavior is calm, cooperative. ca1 Pain: Complains of pain in abdomen Pain currently is 5 out of 10 on a pain scale. Neuro: Level of Consciousness is awake, alert, obeys commands, Oriented to person, place, time, situation. Cardiovascular: Heart tones S1 S2 present Capillary refill < 3 seconds Patient's skin is warm and dry. Respiratory: Airway is patent Respiratory effort is even, unlabored, Respiratory pattern is regular, symmetrical, Breath sounds are clear bilaterally. GI: Abdomen is flat, non-distended, Bowel sounds present X 4 quads. Abd is soft X 4 quads Abdomen is tender to palpation in right upper quadrant, left upper quadrant, right lower quadrant and left lower quadrant. : No signs and/or symptoms were reported regarding the genitourinary system. EENT: No signs and/or symptoms were reported regarding the EENT system. Derm: Skin is intact, is healthy with good turgor, Skin is dry, Skin is jaundiced, pale, Skin temperature is warm. Musculoskeletal: Circulation, motion, and sensation intact. Capillary refill < 3 seconds, Range of motion: intact in all extremities. 18:45 Reassessment: Patient appears in no apparent distress at this time. Patient and/or ca1 family updated on plan of care and expected duration. Pain level reassessed. Patient is alert, oriented x 3, equal unlabored respirations, skin warm/dry/pink. 19:43 Reassessment: Patient appears in no apparent distress at this time. Patient is alert, ca1 oriented x 3, equal unlabored respirations, skin warm/dry/pink. 20:58 Reassessment: Patient appears in no apparent distress at this time. Patient is alert, ca1 oriented x 3, equal unlabored respirations, skin warm/dry/pink. 21:59 Reassessment: Patient appears in no apparent distress at this time. Patient and/or ca1 family updated on plan of care and expected duration. Pain level reassessed. Patient is alert, oriented x 3, equal unlabored respirations, skin warm/dry/pink. family still at bedside. 22:05 Reassessment: Called for report. No answer at this time. ca1 Vital Signs: 17:40 BP 142 / 70; Pulse 87; Resp 14; Temp 97.4; Pulse Ox 100% on R/A; sg 18:34 BP 114 / 80; Pulse 84; Resp 15; Temp 97.6(O); Pulse Ox 100% on R/A; mh5 19:43 BP 106 / 74; Pulse 88; Resp 17 S; Pulse Ox 100% on R/A; ca1 20:46 BP 103 / 72; Pulse 88; Resp 17 S; Pulse Ox 100% on R/A; ca1 22:00 BP 106 / 70; Pulse 84; Resp 17 S; Pulse Ox 100% on R/A; ca1 ED Course: 17:37 Patient arrived in ED. mr 17:37 Zac Coughlin MD is Private Physician. mr 17:37 Cuong Nation PA is PHCP. [facility] 17:37 Rush Briones MD is Attending Physician. [facility] 17:41 Arm band placed on. sg 17:43 Triage completed. 17:45 Darleen Ordonez RN is Primary Nurse. ca1 17:50 Patient has correct armband on for positive identification. Placed in gown. Bed in low ca1 position. Call light in reach. Side rails up X 1. Pulse ox on. NIBP on. Warm blanket given. 18:00 No provider procedures requiring assistance completed. Initial lab(s) drawn, by co, ca1 sent to lab. Inserted saline lock: 20 gauge in right antecubital area, using aseptic technique. Blood collected. 18:23 US Abdomen Limited In Process Unspecified. EDMS 19:00 Inserted saline lock: 20 gauge in left antecubital area, using aseptic technique. Blood ca1 collected. 20:06 CT Abd/Pelvis - IV Contrast Only In Process Unspecified. EDMS 22:01 Patient admitted, IV remains in place. [facility] Administered Medications: 21:56 Drug: NS 0.9% 1000 ml Route: IV; Rate: 1 bolus; Site: left antecubital; 22:00 Follow up: Response: No adverse reaction; IV Status: Infusion continued upon transfer ca1 23:00 Follow up: Response: No adverse reaction; IV Status: Completed infusion Outcome: 21:53 ER care complete, transfer ordered by . emily 22:13 Condition: stable ca1 22:13 Instructed on the need for transfer. 22:59 Transferred by ground EMS to [facility], Transfer form completed. X-rays sent w/ patient. Note: report given to [facility] 23:00 Patient left the ED. Signatures: Dispatcher [employer] EDMS Khadar Alfaro RN RN Cuong Nation PA PA Bri Crowe Mellissa Ced[facility] HabJanell posada Cheryl RN RN ca1 Corrections: (The following items were deleted from the chart) 22:02 19:00 Inserted saline lock: 20 gauge in left antecubital area, using aseptic technique. ca1 Blood collected. ca1 22:59 22:13 Transferred by ground EMS to [facility], Transfer form wh completed. X-rays sent w/ patient. ca1
--- NOTE | 2019-02-13 21:53 | EDPHYS ---
Physician Documentation [facility] Name: Jann Alvarez Age: 29 yrs Sex: Male : 1990 Arrival Date: 02/13/2019 Time: 17:37 Bed 18 Private MD: Zac Coughlin ED Physician Rush Briones HPI: 02/13 17:42 This 29 yrs old Male presents to ER via Ambulatory with complaints of jmm Abdominal Pain, Jaundice. 17:42 The patient presents with abdominal pain that is diffuse. Onset: The symptoms/episode jmm began/occurred gradually. The symptoms do not radiate. Associated signs and symptoms: Pertinent negatives: vomiting. This is a 29 year old male with a history of autism, lupus, pancreatitis that presents to the ED with complaints of abdominal pain which has been chronic. Patient went to GI today and was advised to go to the ED for further evaluation due to jaundice. . Historical: - Allergies: 17:44 meropenem; sg 17:44 Vancomycin; sg 17:44 Zosyn; sg - PMHx: 17:44 Autism; Lupus; Pancreatitis; sg - PSHx: 17:44 ALLEY drain/removed; ERCP; gall bladder stent x1; sg - Immunization history:: Adult Immunizations up to date. - Social history:: Smoking status: Patient/guardian denies using tobacco. - Ebola Screening: : Patient negative for fever greater than or equal to 101.5 degrees Fahrenheit, and additional compatible Ebola Virus Disease symptoms Patient denies exposure to infectious person Patient denies travel to an Ebola-affected area in the 21 days before illness onset No symptoms or risks identified at this time. ROS: 17:42 Constitutional: Negative for fever, chills, and weight loss, Cardiovascular: Negative jmm for chest pain, palpitations, and edema, Respiratory: Negative for shortness of breath, cough, wheezing, and pleuritic chest pain. 17:42 Abdomen/GI: Positive for abdominal pain. 17:42 All other systems are negative. Exam: 17:42 Constitutional: This is a well developed, well nourished patient who is awake, alert, jmm and in no acute distress. Head/Face: atraumatic. 17:42 Cardiovascular: Regular rate and rhythm. No edema appreciated Respiratory: Normal respirations, no respiratory distress appreciated 17:42 Back: Normal ROM 17:42 MS/ Extremity: Moves all extremities, no obvious deformities appreciated, no edema noted to the lower extremities Neuro: Awake and alert, normal gait Psych: Behavior is normal, Mood is normal, Patient is cooperative and pleasant 17:42 Eyes: Sclera: icterus, is present. 17:42 Abdomen/GI: Inspection: abdomen appears normal, Bowel sounds: normal, Palpation: soft, mild abdominal tenderness, in all quadrants. 17:42 Skin: Appearance: Color: jaundiced. Vital Signs: 17:40 BP 142 / 70; Pulse 87; Resp 14; Temp 97.4; Pulse Ox 100% on R/A; sg 18:34 BP 114 / 80; Pulse 84; Resp 15; Temp 97.6(O); Pulse Ox 100% on R/A; mh5 19:43 BP 106 / 74; Pulse 88; Resp 17 S; Pulse Ox 100% on R/A; ca1 20:46 BP 103 / 72; Pulse 88; Resp 17 S; Pulse Ox 100% on R/A; ca1 22:00 BP 106 / 70; Pulse 84; Resp 17 S; Pulse Ox 100% on R/A; ca1 MDM: 17:42 Patient medically screened. [facility] 21:44 Data reviewed: vital signs, nurses notes. Counseling: I had a detailed discussion with [facility] the patient and/or guardian regarding: the historical points, exam findings, and any diagnostic results supporting the discharge/admit diagnosis, lab results, radiology results, the need to transfer to another facility. ED course: I discussed the patient with [employer] for Dr. Freire whom advised to transfer the patient. I discussed the patient with Dr. Cuellar whom will consult on transfer. Dr. Larson accepted transfer. . 02/13 17:50 Order name: Basic Metabolic Panel; Complete Time: 19:40 [facility] 02/13 17:50 Order name: CBC with Diff; Complete Time: 19:19 [facility] 02/13 17:50 Order name: Creatinine for Radiology; Complete Time: 19:40 [facility] 02/13 17:50 Order name: Hepatic Function; Complete Time: 19:40 [facility] 02/13 17:50 Order name: Lipase; Complete Time: 19:40 [facility] 02/13 18:34 Order name: Type And Screen; Complete Time: 20:23 [facility] 02/13 17:50 Order name: CT Abd/Pelvis - IV Contrast Only; Complete Time: 20:23 [facility] 02/13 17:51 Order name: US Abdomen Limited; Complete Time: 18:41 [facility] 02/13 18:55 Order name: Urine Microscopic Only; Complete Time: 19:47 [facility] 02/13 18:55 Order name: PT-INR; Complete Time: 19:40 [facility] 02/13 18:59 Order name: Urine Dipstick--Ancillary (enter results); Complete Time: 19:19 [facility] 02/13 19:08 Order name: Manual Differential; Complete Time: 19:19 [facility] 02/13 19:43 Order name: Urine Culture [facility] 02/13 17:50 Order name: IV Saline Lock; Complete Time: 18:02 [facility] 02/13 17:50 Order name: Labs collected and sent; Complete Time: 18:02 [facility] 02/13 17:50 Order name: Urine Dipstick-Ancillary (obtain specimen); Complete Time: 19:03 [facility] 02/13 18:31 Order name: Labs - recollect needed: green top recollect; Complete Time: 19:03 eb Administered Medications: 21:56 Drug: NS 0.9% 1000 ml Route: IV; Rate: 1 bolus; Site: left antecubital; 22:00 Follow up: Response: No adverse reaction; IV Status: Infusion continued upon transfer [facility] 23:00 Follow up: Response: No adverse reaction; IV Status: Completed infusion Disposition: 02/14 08:35 Co-signature as Attending Physician, Rush Briones MD I agree with the assessment and [facility] plan of care. Disposition: 02/13/19 21:[address] [facility]. Diagnosis are Generalized abdominal pain, Common Bile Duct Obstruction. - Reason for transfer: Higher level of care. - Accepting physician is Dr. Pisano. - Condition is Stable. - Problem is new. - Symptoms are unchanged. Signatures: Dispatcher [employer] EDMS Khadar Alfaro, Rush Butts RN, MD MD cha Mickail, Joel, PA PA [facility] Janell Ruiz Christy Astudillo Cheryl RN ca1 Corrections: (The following items were deleted from the chart) 02/13 21:52 21:44 ED course: I discussed the patient with [employer] for Dr. Freire. emily diaz 23:00 21:53 02/13/2019 21:[address] [facility]. Diagnosis is wh Generalized abdominal pain; Common Bile Duct Obstruction. Reason for transfer: Higher level of care. Accepting physician is Dr. Pisano. Condition is Stable. Problem is new. Symptoms are unchanged. emily
[2019-02-13 23:19] VITALS: O2SAT 100
[2019-02-13 23:20] VITALS: TEMP 97.6
[2019-02-13 23:24] VITALS: BP 106/70
== END 2019-02-13 23:00 | disposition short-term general hospital (02) ==
LOC: ER 17:33
DX: K83.1 Obstruction of bile duct (principal); Z88.3 Allergy status to other anti-infective agents; Z88.8 Allergy status to other drugs, medicaments and biological substances
CPT/HCPCS: 85025; 87086; 80048; 36415; 86900; 86850; 85610; 86901; 80076; 83690; 74177; 76705; 99285; Q9967; J7030; 81003; 81015; 87088

== ENCOUNTER 2019-08-26 14:15 | Inpatient (IN) | payer OTHER ==
--- OUTSIDE RECORDS SUMMARY | 2019-08-26 14:53 | XMS REPORT | Clinical Summary ---
:1990 Author Organization [facility] Address [address] [place] [address] Care Team Providers Name Role Phone Zac Coughlin Primary Care Provider [facility] Unavailable Allergies Active Allergy Reactions Severity Noted Date Comments Meropenem-0.9% Sodium Hives, Itching Medium 07/12/2018 Chloride Morphine Nausea And Vomiting 02/14/2019 Vancomycin Analogues Rash High 08/27/2018 Rash wi th lip swelling Piperacillin-Tazobacta Swelling, Rash High 07/15/2018 Pt received Zosyn and m vancomycin, and subsequently de veloped a rash with lip swelling. A few days prior to this, pt developed a amara h to meropenem. Medications Medication Sig Dispensed Refills Start Date End Date Status ferrous sulfate 325 Take 1 tablet 1 01/19/2019 Active (65 FE) MG tablet by mouth 2 (two) times daily. ondansetron Take 1 tablet 0 08/01/2018 Act yuridia (ZOFRAN-ODT) 4 MG by mouth every disintegrating 8 (eight) hours tablet as needed. pantoprazole Take 40 mg by 1 11/27/2018 Ac tive (PROTONIX) 40 MG mouth daily. tablet docusate sodium Take 100 mg by 0 07/19/2018 Active (COLACE) 100 MG mouth as capsule needed. nystatin Apply topically 15 g 0 06/16/2018 Exp ired (MYCOSTATIN) 100,000 2 (two) times 0 unit/gram powder daily. HYDROcodone-acetamin Take 1 tablet 30 tablet 0 08/01/201802/05 Discontinued ophen (NORCO 10-325) by mouth 3 0 10-325 mg per tablet (three) times daily as needed. Max Daily Amount: 3 tablets HYDROcodone-acetamin Take 1 tablet 20 tablet 0 08/31/201802/05 Discontinued ophen (NORCO 5-325) by mouth every 0 5-325 mg per tablet 8 (eight) hours as needed for up to 20 doses. Max Daily Amount: 3 tablets pantoprazole Take 1 tablet 30 tablet 0 09/01/2018 Ex pired (PROTONIX) 40 MG (40 mg total) 9 tablet by mouth daily for 30 days. ondansetron (ZOFRAN) Take 4 mg by 1 01/31/201902/18 Discontinued 4 MG tablet mouth every 12 0 (twelve) hours. HYDROcodone-acetamin Take 1 tablet 21 tablet 0 02/18/201902/05 Discontinued ophen (NORCO 5-325) by mouth every 0 5-325 mg per tablet 8 (eight) hours as needed for Pain for up to 7 doses. Max Daily Amount: 3 tablets metroNIDAZOLE Take 1 tablet 9 tablet 0 02/18/2019 E xpired (FLAGYL) 500 MG (500 mg total) 0 tablet by mouth every 8 (eight) hours for 3 days. ciprofloxacin HCl Take 1 tablet 6 tablet 0 02/18/2019 02 (CIPRO) 500 MG (500 mg total) 0 tablet by mouth every 12 (twelve) hours for 3 days. HYDROcodone-acetamin Take 1 tablet 21 tablet 0 02/18/201902/06 ophen (NORCO 10-325) by mouth every 0 10-325 mg per tablet 8 (eight) hours as needed for Pain for up to 7 days. Max Daily Amount: 3 tablets Active Problems Problem Noted Date Obstructive jaundice 02/14/2019 GI bleed 08/27/2018 Leukocytosis 08/27/2018 Hypomagnesemia 07/28/2018 Pancreatitis 07/27/2018 Peripancreatic fluid collection 07/11/2018 Cholangitis 05/30/2018 Encounters Date Type Specialty Care Team Description 02/15/2019 Anesthesia Event Gastroenterology Elver Avendaño MD 02/15/2019 Surgery Gastroenterology Uriah Childs ERCP M. 02/14/2019 [facility]iology [place], Obstructive jau ndice; - Encounter MD Linda Peripancreatic fluid collection; 02/18/2019 [place], History of panc reatitis; Katina Leukocytosis, u nspecified type; MD Wing Acute blood loss anemia Zi, Yaalyssaash D Melissa Farmer MD 02/14/2019 Travel 08/29/2018 Surgery Gastroenterology Maliha Gotti COLONANNETTE PY,POLYPECT MD WILLY Juarez 08/29/2018 Anesthesia Event Gastroenterology Lizabeth Gray MD 08/28/2018 Anesthesia Event Gastroenterology Corinna Franco CRNA 08/28/2018 Surgery Gastroenterology Maliha Gotti UPPER END OSCOPY MD Larry 08/27/2018 Hospital General Internal Derrell Rodriguez Acute upp er GI bleeding; - Encounter Medicine Sepsis, due to unspecified organism (HCC ); 08/31/2018 Stu De Oliveira H/O acute carlos creatitis; MD Farhat Melena; Osman Parks Acute blood l oss anemia; MD Kadi Lower GI bleed; Autism disorder 08/27/2018 Travel 08/27/2018 Telephone Critical Care Medicine Derrell Rodriguez Pee r-to-Peer Call after 08/25/2018 Social History Tobacco Use Types Packs/Day Years Used Date Never Smoker Smokeless Tobacco: Never Used Sex Assigned at Date Recorded Not on file Job Start Date Occupation Industry Not on file Not on file Not on file Travel History Travel Start Travel End No recent travel history available. Last Filed Vital Signs Vital Sign Reading Time Taken Blood Pressure 98/63 02/18/2019 12:03 PM [employer] Pulse 78 02/18/2019 12:03 PM [employer] Temperature 36 C (96.8 F) 02/18/2019 12:03 PM [employer] Respiratory Rate 18 02/18/2019 2:11 PM [employer] Oxygen Saturation 97% 02/18/2019 2:11 PM [employer] Inhaled Oxygen Concentration 21% 02/17/2019 4:03 PM [employer] Weight 70.9 kg (156 lb 3.2 oz) 02/15/2019 7:00 AM [employer] Height 177.8 cm (5' 10") 02/14/2019 7:00 AM [employer] Body Mass Index 22.41 02/15/2019 7:00 AM [employer] INSTALLER Plan of Treatment Not on file Implants Implanted Type Area Ice Cream Truck Driver Device Shelf Model / Identifier Expiration Date Ser ial / Lot Stent Bili Duodenal [id number] - [id number] IMPLANTS MIKAYLA STON SCI:ENDO 3432 / Implanted: Qty: 1 on 02/15/2019 by Uriah Childs / Explanted Type Area Ice Cream Truck Driver Device Identifier Shelf Exp iration Model / Date Serial / L ot Aurelia [facility] 12/31/2020 [id number] / Implanted: Qty: 1 on 07/29/2018 by Wilmer Santiago MD / Explanted: Qty: 1 on 08/28/2018 [id number] Procedures Procedure Name Priority Date/Time Associated Diagnosis Comme nts RHYTHM STRIP - SCAN 02/26/2019 4:18 PM [employer] INSTALLER TRANSFUSION SERVICE 02/19/2019 6:00 REPORT - SCAN PM [employer] IN[employer]ER RHYTHM STRIP - SCAN 02/19/2019 11:21 AM [employer] INSTALLER PREPARE Routine 02/18/2019 11:54 Results for LEUKO-REDUCED RBC PM [employer] INSTALLER this proce dure are in the results section. TRANSFUSION SERVICE 02/18/2019 6:00 REPORT - SCAN PM [employer] INST[employer]ER FERRITIN Routine 02/18/2019 1:36 Results for PM [employer]ER this procedure are in the results section. COMPREHENSIVE STAT 02/18/2019 1:36 Results fo r METABOLIC PANEL PM [employer] INSTALLER this procedu re are in the results section. HEMOGLOBIN AND Routine 02/18/2019 12:16 Results f or HEMATOCRIT PM [employer] INSTALLER this procedure are in the results section. TRANSFUSE Routine 02/17/2019 2:53 LEUKO-REDUCED RED PM [employer] INSTALLER BLOOD CELLS TYPE AND SCREEN, Routine 02/17/2019 9:56 Results for AUTOMATED AM [employer] INSTALLER this procedure are in the results section. HEMOGLOBIN AND STAT 02/17/2019 6:19 Results f or HEMATOCRIT AM [employer] INSTALLER this procedure are in the results section. LIPASE Routine 02/17/2019 4:18 Results for AM [employer] INSTALLER this procedure are in the results section. IRON, TIBC, % SAT. Routine 02/17/2019 4:18 Resul ts for (WITHOUT FERRITIN) AM [employer] INSTALLER this proc edure are in the results section. TSH/FREE T4 IF Routine 02/17/2019 4:18 Results f or INDICATED AM [employer] INSTALLER this procedure are in the results section. VITAMIN B12 AND Routine 02/17/2019 4:18 Results for FOLATE AM [employer] INSTALLER this procedure are in the results section. BASIC METABOLIC Routine 02/17/2019 4:18 Results for PANEL (7) AM [employer] IN[employer]ER this procedure are in the results section. CBC (HEMOGRAM ONLY) Routine 02/17/2019 4:18 Resu lts for AM [employer]ER this procedure are in the results section. HEMOGLOBIN AND Routine 02/16/2019 10:19 Results f or HEMATOCRIT AM [employer] INSTALLER this procedure are in the results section. LIPASE Add-On 02/16/2019 4:23 Results for AM [employer]ER this procedure are in the results section. COMPREHENSIVE Routine 02/16/2019 4:23 Results fo r METABOLIC PANEL AM [employer]ER this procedu re are in the results section. CBC (HEMOGRAM ONLY) Routine 02/16/2019 4:23 Resu lts for AM [employer] this procedure are in the results section. PROTHROMBIN TIME/INR Routine 02/16/2019 4:23 Res ults for AM [employer] this procedure are in the results section. PT/APTT Routine 02/16/2019 4:23 Results for AM [employer] this procedure are in the results section. HEPATIC FUNCTION Routine 02/16/2019 4:23 Results for PANEL AM [employer] this procedure are in the results section. REPORT OF PROCEDURE 02/15/2019 12:51 - ENDOSCOPY URL PM [employer]ER INSTALLER FL ERCP Routine 02/15/2019 12:32 Results for PM [employer] this procedure are in the results section. CYTOLOGY REQUEST Routine 02/15/2019 12:26 Results for PM [employer] IN[employer]ER this procedure are in the results section. CYTOLOGY AP Routine 02/15/2019 12:26 Results for PM [employer] this procedure are in the results section. CBC W/PLT COUNT & STAT 02/15/2019 11:55 Result s for AUTO DIFFERENTIAL AM [employer] INST[employer]ER this proce dure are in the results section. CBC W/PLT COUNT & STAT 02/15/2019 11:55 Result s for AUTO DIFFERENTIAL AM [employer]ER this proce dure are in the results section. ERCP,BILIARY STENT 02/15/2019 11:00 Jaundice AM [employer] INSTALLER ERCP,BALLOON 02/15/2019 11:00 Jaundice SWEEPING AM [employer] INSTALLER ERCP 02/15/2019 11:00 Jaundice AM [employer]ER PROTHROMBIN TIME/INR Routine 02/15/2019 6:00 Res ults for AM [employer]ER this procedure are in the results section. PT/APTT Routine 02/15/2019 6:00 Results for AM [employer] this procedure are in the results section. BASIC METABOLIC Routine 02/15/2019 6:00 Results for PANEL (7) AM [employer]ER this procedure are in the results section. HEPATIC FUNCTION Routine 02/15/2019 6:00 Results for PANEL AM [employer] this procedure are in the results section. (CELLAVISION MANUAL Routine 02/14/2019 6:24 Resu lts for DIFF) AM [employer]ER this procedure are in the results section. CBC W/PLT COUNT & Routine 02/14/2019 6:24 Result s for AUTO DIFFERENTIAL AM [employer] this proce dure are in the results section. CBC W/PLT COUNT & Routine 02/14/2019 6:24 Result s for AUTO DIFFERENTIAL AM [employer] this proce dure are in the results section. PROTHROMBIN TIME/INR Routine 02/14/2019 4:34 Res ults for AM [employer] this procedure are in the results section. PT/APTT Routine 02/14/2019 4:34 Results for AM [employer] IN[employer]ER this procedure are in the results section. BASIC METABOLIC Routine 02/14/2019 4:34 Results for PANEL (7) AM [employer] INSTALLER this procedure are in the results section. HEPATIC FUNCTION Routine 02/14/2019 4:34 Results for PANEL AM [employer]ER this procedure are in the results section. REPORT OF PROCEDURE 09/04/2018 5:05 - ENDOSCOPY URL PM CDT REPORT OF PROCEDURE 09/02/2018 2:20 - ENDOSCOPY SCAN PM CDT CBC W/PLT COUNT & Routine 08/31/2018 5:21 Result s for AUTO DIFFERENTIAL AM CDT this proce dure are in the results section. CBC W/PLT COUNT & Routine 08/31/2018 5:21 Result s for AUTO DIFFERENTIAL AM CDT this proce dure are in the results section. TRANSFUSION SERVICE 08/30/2018 5:51 REPORT - SCAN PM CDT HEMOGLOBIN AND Routine 08/30/2018 12:34 Results f or HEMATOCRIT PM CDT this procedure are in the results section. CBC W/PLT COUNT & Routine 08/30/2018 5:25 Result s for AUTO DIFFERENTIAL AM CDT this proce dure are in the results section. HEPATIC FUNCTION Routine 08/30/2018 5:25 Results for PANEL AM CDT this procedure are in the results section. MAGNESIUM Routine 08/30/2018 5:25 Results for AM CDT this procedure are in the results section. PHOSPHORUS Routine 08/30/2018 5:25 Results for AM CDT this procedure are in the results section. BASIC METABOLIC Routine 08/30/2018 5:25 Results for PANEL (7) AM CDT this procedure are in the results section. CBC W/PLT COUNT & Routine 08/30/2018 5:25 Result s for AUTO DIFFERENTIAL AM CDT this proce dure are in the results section. PREPARE Routine 08/29/2018 11:54 Results for LEUKO-REDUCED RBC PM CDT this proce dure are in the results section. TRANSFUSION SERVICE 08/29/2018 6:02 REPORT - SCAN PM CDT COLONOSCOPY,POLYPECT 08/29/2018 6:00 Gastrointestinal WILLY PM CDT hemorrhage, unspecified gastrointestinal hemorrhage type REPORT OF PROCEDURE 08/29/2018 10:43 - ENDOSCOPY URL AM CDT TISSUE EXAM AP Routine 08/29/2018 9:32 Results for AM CDT this procedure are in the results section. CBC W/PLT COUNT & Routine 08/29/2018 5:07 Result s for AUTO DIFFERENTIAL AM CDT this proce dure are in the results section. HEPATIC FUNCTION Routine 08/29/2018 5:07 Results for PANEL AM CDT this procedure are in the results section. MAGNESIUM Routine 08/29/2018 5:07 Results for AM CDT this procedure are in the results section. PHOSPHORUS Routine 08/29/2018 5:07 Results for AM CDT this procedure are in the results section. BASIC METABOLIC Routine 08/29/2018 5:07 Results for PANEL (7) AM CDT this procedure are in the results section. CBC W/PLT COUNT & Routine 08/29/2018 5:07 Result s for AUTO DIFFERENTIAL AM CDT this proce dure are in the results section. TRANSFUSION SERVICE 08/28/2018 6:02 REPORT - SCAN PM CDT HEMOGLOBIN AND Routine 08/28/2018 4:39 Results f or HEMATOCRIT PM CDT this procedure are in the results section. REPORT OF PROCEDURE 08/28/2018 11:49 - ENDOSCOPY URL AM CDT UPPER ENDOSCOPY 08/28/2018 8:00 Melena AM CDT Case Notes OK PER ENDO NURSE [employer] AGENT TO PUT THIS CASE 0800 IN OR 02. HAD TO ADJUST CASES IN OR 3 SO [facility] WOULD ALLOW THIS C ASE TO BE SCHEDULED. Special Needs PER DR. 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 HEMOGLOBIN AND HEMATOCRIT Routine 08/28/2018 6:33 AM CDT Results for this procedure are i n the results section . TROPONIN I STAT 08/28/2018 6:33 AM CDT Resu lts for this procedure are i n the results section . LACTIC ACID, VENOUS Routine 08/28/2018 6:33 AM CDT Results for this procedure are i n the results section . PHOSPHORUS Routine 08/28/2018 6:33 AM CDT Resu lts for this procedure are i n the results section . MAGNESIUM Routine 08/28/2018 6:33 AM CDT Resu lts for this procedure are i n the results section . BASIC METABOLIC PANEL (7) Routine 08/28/2018 6:33 AM CDT Results for this procedure are i n the results section . CBC W/PLT COUNT & AUTO Routine 08/28/2018 6:33 AM CDT Results for this DIFFERENTIAL procedure are i n the results section . TRANSFUSE LEUKO-REDUCED RED Routine 08/28/2018 5:09 AM CDT BLOOD CELLS ABORH, MANUAL STAT 08/28/2018 12:03 AM CDT Res ults for this procedure are i n the results section . HEMOGLOBIN AND HEMATOCRIT Routine 08/28/2018 12:03 AM CDT Results for this procedure are i n the results section . TROPONIN I STAT 08/28/2018 12:03 AM CDT Resu lts for this procedure are i n the results section . TYPE AND SCREEN, AUTOMATED STAT 08/27/2018 8:12 PM CDT Results for this procedure are i n the results section . URINALYSIS W/ REFLEX URINE STAT 08/27/2018 8:08 PM CDT Results for this CULTURE procedure are i n the results section . BLOOD CULTURE Routine 08/27/2018 6:31 PM CDT Res ults for this procedure are i n the results section . CBC W/PLT COUNT & AUTO STAT 08/27/2018 6:30 PM CDT Results for this DIFFERENTIAL procedure are i n the results section . HEMOGLOBIN AND HEMATOCRIT Routine 08/27/2018 6:30 PM CDT Results for this procedure are i n the results section . CBC W/PLT COUNT & AUTO STAT 08/27/2018 6:30 PM CDT Results for this DIFFERENTIAL procedure are i n the results section . PHOSPHORUS STAT 08/27/2018 6:30 PM CDT Resu lts for this procedure are i n the results section . MAGNESIUM STAT 08/27/2018 6:30 PM CDT Resu lts for this procedure are i n the results section . PROTHROMBIN TIME/INR STAT 08/27/2018 6:30 PM CDT Results for this procedure are i n the results section . FIBRINOGEN STAT 08/27/2018 6:30 PM CDT Resu lts for this procedure are i n the results section . COMPREHENSIVE METABOLIC STAT 08/27/2018 6:30 PM CDT Results for this PANEL procedure are i n the results section . LACTIC ACID, VENOUS STAT 08/27/2018 6:30 PM CDT Results for this procedure are i n the results section . TROPONIN I STAT 08/27/2018 6:30 PM CDT Resu lts for this procedure are i n the results section . BLOOD CULTURE Routine 08/27/2018 6:30 PM CDT Res ults for this procedure are i n the results section . XR CHEST 1 VIEW Routine 08/27/2018 5:15 PM CDT R esults for this PORTABLE/BEDSIDE procedure a re in the results section . after 08/25/2018 Results RHYTHM STRIP - SCAN (02/26/2019 4:18 PM SPRINKLER INSTALLER)Only the most recent of2 results within the time period is included. Narrative Performed At This result has an attachment that is no t available. TRANSFUSION SERVICE REPORT - SCAN (02/19/2019 6:00 PM SPRINKLER INSTALLER)Only the most recent of5 resultswithin the time period is included. Narrative Performed At This result has an attachment that is no t available. Prepare Leuko-Red RBC (02/18/2019 11:54 PM SPRINKLER INSTALLER)Only the most recent of2 results within the time period is included. CROSSMATCH COMPATIBLE [facility] TX Unit ABO A Pos [facility] TX UNIT NUMBER [id number] [facility] [place] Status TX_TIMEINCHART [facility] [place] Blood Bank Product RED BLOOD CELLS [facility] PRODUCT CODE [id number] [facility] [place] Specimen Other Performing Organization Address City/State/Zipcode Phone Number [facility] [place] Ferritin (02/18/2019 1:36 PM SPRINKLER INSTALLER) Ferritin 187 5 - 275 ng/mL [facility] CENTER Specimen Blood Narrative Performed At Steel Tester ID - ARTURO [facility] Performing Organization Address City/State/Zipcode Phone Number [facility] [address] [place] [address] CENTER Comprehensive metabolic panel (02/18/2019 1:36 PM SPRINKLER INSTALLER)Only the most recent of3 resultswithin the time period is included. Protein, Total 5.4 (L) 6.0 - 8.3 gm/dL [facility] Albumin 1.9 (L) 3.5 - 5.0 g/dL [facility] Alkaline Phosphatase 1,089 (H) 40 - 150 U/L [facility] Total Bilirubin 2.7 (H) 0.2 - 1.2 mg/dL [facility] Sodium 136 136 - 145 meq/L [facility] Potassium 3.8 3.5 - 5.1 meq/L [facility] Chloride 105 98 - 107 meq/L [facility] CO2 28 22 - 29 meq/L [facility] BUN 3 (L) 7 - 21 mg/dL [facility] Creatinine 0.50 (L) 0.57 - 1.25 mg/dL [facility] Glucose 90 70 - 105 mg/dL [facility] Calcium 7.5 (L) 8.4 - 10.2 mg/dL [facility] AST 58 (H) 5 - 34 U/L [facility] ALT 30 6 - 55 U/L [facility] EGFR 195Comment: ESTIMATED mL/min/1.73 sq m [facility] GFR IS NOT ACCURATE [facility] CREATININE CLEARANCE IN PREDICTING GLOMERULAR FILTRATION RATE. ESTIMATED GFR IS NOT APPLICABLE FOR DIALYSIS PATIENTS. Specimen Blood Narrative Performed At Steel Tester ID - KIRA Ann-Marie [facility] Specimen slightly icteric Performing Organization Address City/State/Zipcode Phone Number [facility] [address] [place] [address] CENTER Hemoglobin and hematocrit (02/18/2019 12:16 PM SPRINKLER INSTALLER)Only the most recent of8 resultswithin the time period is included. Hemoglobin 9.0 (L) 13.7 - 17.5 GM/DL [facility] Hematocrit 29.6 (L) 40.1 - 51.0 % [facility] Specimen Blood Narrative Performed At Steel Tester ID - [id number] [facility] Performing Organization Address City/[facility] Phone Number [address] [address] CENTER Transfuse Leuko-Red RBC (02/17/2019 2:53 PM SPRINKLER INSTALLER)Only the most recent of4 resultswithin the time period is included.Type and screen, automated (02/17/2019 9:56 AM SPRINKLER INSTALLER)Only the most recent of2 resultswithin the time period is included. ABO/RH AUTOMATED (BEVIANEY) A POSITIVE [facility] Ab Scrn NEGATIVE [facility] Specimen Blood Performing Organization Address City/[facility] Cent[facility] Phone Number [address] [address] Vitamin B12 and Folate (02/17/2019 4:18 AM SPRINKLER INSTALLER) Vitamin B12 665 213 - 816 pg/mL [facility] Folate 12.3 >=7.0 ng/mL [facility] Specimen Blood Narrative Performed At Steel Tester ID - SOTERO M [facility] Performing Organization Address City/[facility]/Zipcode Phone Number [address] [address] CENTER TSH/Free T4 If Indicated (02/17/2019 4:18 AM SPRINKLER INSTALLER) TSH 2.31 0.35 - 4.94 uIU/mL [facility] Specimen Blood Narrative Performed At Steel Tester ID - SOTERO M [facility] Performing Organization Address City/[facility]/Zipcode Phone Number [facility] [address] [place] [address] CENTER Iron, TIBC, % sat. (without ferritin) (02/17/2019 4:18 AM SPRINKLER INSTALLER) Iron 15.0 (L) 40.0 - 160.0 ug/dL [facility] TIBC 124 (L) 250 - 450 ug/dL [facility] Iron % Saturation 12 (L) 20 - 55 % [facility] Specimen Blood Narrative Performed At Steel Tester HELIO Hernandez [facility] Performing Organization Address [facility] Cent[facility]ode Phone Number [address] [address] CENTER CBC (Hemogram only) (02/17/2019 4:18 AM SPRINKLER INSTALLER)Only the most recent of2 results within the time period is included. WBC 5.9 3.5 - 10.5 K/L [facility] RBC 2.20 (L) 4.63 - 6.08 M/L [facility] Hemoglobin 6.7 (L) 13.7 - 17.5 GM/DL [facility] Hematocrit 21.8 (L) 40.1 - 51.0 % [facility] MCV 99.1 (H) 79.0 - 92.2 fL [facility] MCH 30.5 25.7 - 32.2 pg [facility] MCHC 30.7 (L) 32.3 - 36.5 GM/DL [facility] RDW 22.2 (H) 11.6 - 14.4 % [facility] Platelets 307 150 - 450 K/CU MM [facility] MPV 10.2 9.4 - 12.4 fL [facility] nRBC 0 0 - 0 /100 WBC [facility] Specimen Blood Performing Organization Address City/State/Zipcode Phone Number [facility] [address] [place] [address] CENTER Lipase (02/17/2019 4:18 AM SPRINKLER INSTALLER)Only the most recent of2 resultswithin the time period is included. Lipase 72 (H) 6 - 51 U/L [facility] Specimen Blood Narrative Performed At Steel Tester ID - [id number] [facility] Specimen slightly icteric Performing Organization Address [facility] Cent[facility]ode Phone Number [facility] [address] [phone] Basic Metabolic Panel (02/17/2019 4:18 AM SPRINKLER INSTALLER)Only the most recent of6 results within the time period is included. Sodium 136 135 - 148 meq/L [facility] Potassium 3.6 3.6 - 5.5 meq/L [facility] Chloride 105 98 - 106 meq/L [facility] CO2 25 20 - 29 meq/L [facility] BUN <3 (L) 10 - 26 mg/dL [facility] Creatinine 0.52 0.50 - 1.20 mg/dL [facility] Glucose 84 70 - 110 mg/dL [facility] Calcium 7.8 (L) 8.5 - 10.5 mg/dL [facility] EGFR 187Comment: ESTIMATED GFR IS NOT mL/min/1.73 sq m [facility] ACCURATE CREATININE CLEARANCE IN PREDICTING GLOMERULAR FILTRATION RATE. ESTIMATED GFR IS NOT APPLICABLE FOR DIALYSIS PATIENTS. Specimen Blood Narrative Performed At Steel Tester ID - [id number] [facility] Specimen slightly icteric Performing Organization Address City/[facility]/Zipcode Phone Number [facility] [address] [place], [place] [address] PT/aPTT (02/16/2019 4:23 AM SPRINKLER INSTALLER)Only the most recent of3 resultswithin the time period is included. Protime 17.3 (H) 11.9 - 14.2 seconds [facility] INR 1.5 <=5.9 [facility] PTT 50.8 (H) 22.5 - 36.0 seconds [facility] Specimen Blood Narrative Performed At Effective 07/03/2018: PT Reference Range [facility] Change New: 11.9-14.2Previous: 11.7-14.7 RECOMMENDED COUMADIN/WARFARIN INR THERAPY RANGES STANDARD DOSE: 2.0-3.0Includes: PROPHYLAXIS for venous thrombosis, systemic embolization; TREATMENT for venous thrombosis and/or pulmonary embolus. HIGH RISK: Target INR is 2.5-3.5 for patients wiht mechanical heart valves. Performing Organization Address City/[facility]/Zipcode Phone Number [address] [address] CENTER Prothrombin time/INR (02/16/2019 4:23 AM SPRINKLER INSTALLER)Only the most recent of4 results within the time period is included. Protime 17.3 (H) 11.9 - 14.2 seconds [facility] INR 1.5 <=5.9 [facility] Specimen Blood Narrative Performed At Effective 07/03/2018: PT Reference Range [facility] Change New: 11.9-14.2Previous: 11.7-14.7 RECOMMENDED COUMADIN/WARFARIN INR THERAPY RANGES STANDARD DOSE: 2.0-3.0Includes: PROPHYLAXIS for venous thrombosis, systemic embolization; TREATMENT for venous thrombosis and/or pulmonary embolus. HIGH RISK: Target INR is 2.5-3.5 for patients wiht mechanical heart valves. Performing Organization Address City/State/Zipcode Phone Number [facility] [address] [place] [address] CENTER Hepatic function panel (02/16/2019 4:23 AM SPRINKLER INSTALLER)Only the most recent of5 results within the time period is included. Protein, Total 5.2 (L) 6.0 - 8.3 gm/dL [facility] Albumin 1.8 (L) 3.5 - 5.0 g/dL [facility] Total Bilirubin 2.4 (H) 0.2 - 1.2 mg/dL [facility] Bilirubin, Direct 1.8 (H) 0.1 - 0.5 mg/dL [facility] Alkaline Phosphatase 823 (H) 40 - 150 U/L [facility] AST 27 5 - 34 U/L [facility] ALT 23 6 - 55 U/L [facility] Specimen Blood Narrative Performed At Steel Tester ID - SOTERO Hernandez [facility] Performing Organization Address City/State/Zipcode Phone Number [facility] [address] [place] [address] CENTER REPORT OF PROCEDURE - ENDOSCOPY URL (02/15/2019 12:51 PM SPRINKLER INSTALLER) Narrative Performed At This result has an attachment that is no t available. [place] ERCP (02/15/2019 12:32 PM SPRINKLER INSTALLER) Specimen Narrative Performed At FINAL REPORT GE [facility] A fluoroscopic unit was utilized for a p rocedure performed in the operating room. No interpretation was re quested. Please refer to the operative report regarding findings. Ple ase refer to PACS for patient radiation dose information. Signed: Farzad Bowman MD Report Verified Date/Time:02/16/2019 09:17:37 Reading Location: [facility] C013Y CT [facility] Procedure Note Interface, External Ris In - 02/16/2019 9:19 AM SPRINKLER INSTALLER FINAL REPORT A fluoroscopic unit was utilized for a p rocedure performed in the operating room. No interpretation was re quested. Please refer to the operative report regarding findings. Ple ase refer to PACS for patient radiation dose information. Signed: Farzad Bowman MD Report Verified Date/Time: 02/16/2019 0 9:17:37 Reading Location: [facility] C013Y CT [facility] Room Performing Organization Address City/State/Zipcode Phone Number GE [facility] CYTOLOGY REQUEST (02/15/2019 12:26 PM SPRINKLER INSTALLER) Cytology See Separate Report [facility] Specimen Brushings Performing Organization Address City/[facility]/Zipcode Phone Number [address] [address] CENTER Cytology (02/15/2019 12:26 PM SPRINKLER INSTALLER) Case Report Medical Cytology Report Case: [id number] [facility] Authorizing Provider:Uriah Riddleected: 02/15/2019 1226 [facility] Ordering Location: [address] Received:02/15/2019 1529 Service Pathologist: Nereyda Causey MD Specimen:Common Bile Duct, Distal bile duct brushing in CRR DIAGNOSIS COMMON BILE DUCT BRUSHING (CYTOSPINS AND CELL BL OCK): [facility] ATYPICAL CELLS PRESENT, FAVOR REACTI VE (SEE COMMENT) [facility] Signing Pathologist Direct Phone Line: COMMENT Few mildly atypical cells [facility] are present and with the [facility] history of stent, a reactive process is favored. Clinical correlation is recommended. CPT Code(s) 11963, 71614 [facility] ER CLINICAL DATA Jaundice, a localized [facility] biliary stricture with [facility] upstream dilation SPECIMEN SOURCE COMMON BILE DUCT BRUSHING [facility] ER GROSS DESCRIPTION 15 mls in cytorich red; 2 cy tospins, cell block (collodion bag) [facility] Collected: [id number] [facility] Received: [id number] MICROSCOPIC DESCRIPTION Performed. [facility] ER STATEMENT OF ADEQUACY Satisfactory [facility] ER Gross assessment was [facility] performed at Center, Department of [facility] Pathology, [address] [place] [address], Technical component was [facility] performed at [place], Department of [facility] Pathology, [address] [place] [address], Professional component was [facility] performed at [place], Department of [facility] Pathology, [address] [place] [address], Specimen Brushings Narrative Performed At This result has an attachment that is no t available. Performing Organization Address City/State/Zipcode Phone Number [address] [address] [place] CBC with platelet count + automated diff (02/15/2019 11:55 AM SPRINKLER INSTALLER)Only the most recent of7 resultswithin the time period is included. WBC 12.6 (H) 3.5 - 10.5 K/L [facility] ER RBC 2.54 (L) 4.63 - 6.08 M/L [facility] ER Hemoglobin 7.6 (L) 13.7 - 17.5 GM/DL [facility] Hematocrit 25.2 (L) 40.1 - 51.0 % [facility] ER MCV 99.2 (H)Comment: 79.0 - 92.2 fL [facility] DISCORDANT MCV RESULT [facility] COMPARED TO PREVIOUS RESULT; CLINICAL CORRELATION REQUIRED. MCH 29.9 25.7 - 32.2 pg [facility] ER MCHC 30.2 (L) 32.3 - 36.5 GM/DL [facility] ER RDW 23.0 (H) 11.6 - 14.4 % [facility] Platelets 359 150 - 450 K/CU MM [facility] MPV 10.6 9.4 - 12.4 fL [facility] nRBC 0 0 - 0 /[address] [facility] % Neutros 82 % [facility] % Lymphs 8 % [facility] % Monos 8 % [facility] % Eos 1 % [facility] % Baso 1 % [facility] # Neutros 10.28 (H) 1.78 - 5.38 K/L [facility] # Lymphs 0.94 (L) 1.32 - 3.57 K/L [facility] # Monos 1.06 (H) 0.30 - 0.82 K/L [facility] # Eos 0.17 0.04 - 0.54 K/L [facility] # Baso 0.07 0.01 - 0.08 K/L [facility] ER Immature 1 0 - 1 % [facility] Granulocytes-Relative [facility] Specimen Blood Performing Organization Address City/State/Zipcode Phone Number [facility] [address] [place] [address] CENTER Manual Differential (02/14/2019 6:24 AM SPRINKLER INSTALLER) % Neutros 87 % [facility] % Lymphs 3 % [facility] % Monos 6 % [facility] % Eos 3 % [facility] % Atypical Lymphs 1 (H) 0 - 0 % [facility] # Neutros 7.74 (H) 1.78 - 5.38 K/ul [facility] # Lymphs 0.27 (L) 1.32 - 3.57 K/ul [facility] # Monos 0.53 0.30 - 0.82 K/uL [facility] # Eos 0.27 0.04 - 0.54 K/uL [facility] # Atypical Lymphs 0.09 (H) 0.00 - 0.00 K/uL [facility] Total Counted 100 [facility] Platelet Morphology Normal [facility] Smudge Cells Present [facility] Polychromasia 2+ moderate [facility] Hypochromia 1+ few [facility] Anisocytosis 2+ moderate [facility] Microcytes 2+ moderate [facility] Poikilocytes 1+ few [facility] Sch[facility]ocytes 1+ few [facility] Platelet Conc Adequate [facility] Specimen Blood Narrative Performed At Steel Tester ID - Lorenzo Amaro [facility] User comments: Slide comments: Performing Organization Address City/[facility]/Zipcode Phone Number [facility] [address] [place] [address] [place] REPORT OF PROCEDURE - ENDOSCOPY URL (09/04/2018 5:05 PM CDT) Narrative Performed At This result has an attachment that is no t available. EKG-SCANNED (09/02/2018 2:20 PM CDT) Narrative Performed At This result has an attachment that is no t available. Phosphorus (08/30/2018 5:25 AM CDT)Only the most recent of4 resultswithin the time period is included. Phosphorus 3.7 2.3 - 4.7 mg/dL [facility] Specimen Blood Performing Organization Address City/[facility]/Zipcode Phone Number [facility] [address] [place] [address] CENTER Magnesium (08/30/2018 5:25 AM CDT)Only the most recent of4 resultswithin the time period is included. Magnesium 2.0 1.6 - 2.6 mg/dL [facility] Specimen Blood Performing Organization Address City/State/Zipcode Phone Number [facility] [address] [place] [address] CENTER REPORT OF PROCEDURE - ENDOSCOPY URL (08/29/2018 10:43 AM CDT) Narrative Performed At This result has an attachment that is no t available. Tissue Exam (08/29/2018 9:32 AM CDT) Case Report Surgical Pathology Report Case: [id number] [facility] Authorizing Provider:Maliha Sandoval MD Collected: 08/29/2018 0932 [facility] Ordering Location: [place] [address] ICUReceived:08/29/2018 1318 Pathologist: James Stringer MD Specimen:Polyp, Oral n - Transverse, taken by yahaira SHEIKH PART A TRANSVERSE COLON BIOPSY FOR SUSPECTED CECILIA YP: [facility] INFLAMMATORY PSEUDOPOLYP. [facility] Signing Pathologist Direct Phone Line: [phone] COMMENT Immunostains for CMV, HSV1, and [facility] HSV2 performed on block A1 are [facility] negative. CPT Code(s) 23173, 95194, 25023H4 [facility] ER CLINICAL HISTORY Pre and postop diagnosis: [facility] Anne BELTRAN [facility] gastrointestinal hemorrhage, [facility] unspecified gastrointestinal hemorrhage type SPECIMEN SOURCE Polyp, colon - transverse [facility] ER GROSS DESCRIPTION Received in formalin labeled C [facility] with the patient's name, [facility] accession number and "polyp, colon - transverse" is a 0.2 cm york soft tissue fragment which is submitted in toto in A1. CG/pl MICROSCOPIC DESCRIPTION PERFORMED. [facility] Shalini [facility] SPECIAL [facility] The interpretation of this c ase included the use of immunohistochemistry or special stains. [facility] BLOCK A1- CMV, HSV1, HSV2 [facility] [place] Control Slides Examined: In -house known positive controls were evaluated along with the test tissue. These control slides run alongside of the patients sample show appropriate staining. Internal posit yuridia and negative controls when available are nixon mendoza Immunohistochemistry sophia martin testing was performed at [facility], Pathology Laboratory where it was developed and its performance characteristics were determined. It has not be en cleared or approved by [facility] U.S. Food and Drug Administration. The FDA has determined that such clearance or approval is not necessary. The test is used for clinical purposes. It should not be regarde d as investigational or for research. This laboratory is certified under the Clinical Laboratory Improvement Amendments of 1988 (CLIA-88) as qualified to perform high complexity clinical laboratory testing. Specimen Tissue - Polyp, Colon - Transverse Performing Organization Address City/[facility]/Zipcode Phone Number [address] [address] [place] REPORT OF PROCEDURE - ENDOSCOPY URL (08/28/2018 11:49 AM CDT) Narrative Performed At This result has an attachment that is no t available. Troponin I (08/28/2018 6:33 AM CDT)Only the most recent of3 resultswithin the time period is included. Troponin I <0.01 0.00 - 0.03 ng/mL [facility] Specimen Blood Narrative Performed At Troponin I (TnI) levels must be interpreted [facility] in the context of the [...] disease, and persistent tachyarrhythmia. Performing Organization Address City/State/Zipcode Phone Number [address] [address] [place] Lactic acid, venous (08/28/2018 6:33 AM CDT)Only the most recent of2 results within the time period is included. Lactate, Venous 0.7 0.5 - 2.2 mmol/L [facility] Specimen Blood Performing Organization Address City/[facility]/Zipcode Phone Number [facility] [address] [place], [place] [phone] CENTER ABORH, manual (08/28/2018 12:03 AM CDT) ABO Grouping A [facility] Rh Factor POS [facility] Specimen Blood Performing Organization Address [facility] Centercode Phone Number [facility] [address] [place] [address] Urinalysis w/Microscopic + Reflex to Culture (08/27/2018 8:08 PM CDT) Color, UA Yellow [facility] Clarity, UA Clear [facility] Specific Gardner, UA 1.024 1.001 - 1.035 [facility] pH, UA 7.5 5.0 - 8.0 [facility] Protein, UA 30 mg/dL (A) Negative [facility] Glucose, UA Negative Negative [facility] Ketones, UA 40 mg/dL (A) Negative [facility] Bilirubin, UA Negative Negative [facility] Blood, UA Negative Negative [facility] Nitrite, UA Negative Negative [facility] Leukocytes, UA Trace (A) Negative [facility] Urobilinogen, UA 0.2 0.2 - 1.0 mg/dL [facility] RBC, UA 1 /HPF [facility] WBC, UA 5 /HPF [facility] Mucus Rare [facility] Specimen Source [facility] Specimen Urine Performing Organization Address City/[facility]/Zipcode Phone Number [facility] [address] [place] [address] [place] Blood Culture - Routine (Right Venipuncture) (08/27/2018 6:31 PM CDT)Only the most recent of2 resultswithin the time period is included. Result No growth in 5 days [facility] Specimen Blood Performing Organization Address City/State/Zipcode Phone Number [facility] [address] [place] [address] [place] Fibrinogen (08/27/2018 6:30 PM CDT) Fibrinogen 418 225 - 434 mg/dl [facility] Specimen Blood Performing Organization Address [facility] Centercode Phone Number [address] [address] [place] XR chest 1 view portable / bedside (08/27/2018 5:15 PM CDT) Specimen Narrative Performed At FINAL REPORT GE RIS AP view of the chest dated 08/27/2018 CLINICAL INFORMATION: r/o pulm edema Comment:Heart is normal in size. Pul monary vasculature is unremarkable. Subsegmental atelectasis i s seen in the left lower lobe. The rest of the lungs are clear. N o pulmonary infiltrate or pleural effusion is present. Impression: Left lower lobe subsegmental atelectasis. Signed: Debbie Castillo MD Report Verified Date/Time:08/27/2018 21:37:05 Reading Location: [facility] B1 C013W Consult [facility] Procedure Note Interface, External Ris In - 08/27/2018 9:39 PM CDT FINAL REPORT AP view of the chest dated 08/27/2018 CLINICAL INFORMATION: r/o pulm edema Comment: Heart is normal in size. Pulmo nary vasculature is unremarkable. Subsegmental atelectasis i s seen in the left lower lobe. The rest of the lungs are clear. N o pulmonary infiltrate or pleural effusion is present. Impression: Left lower lobe subsegmental atelectasis. Signed: Debbie Castillo MD Report Verified Date/Time: 08/27/2018 2 1:37:05 Reading Location: [facility] B1 C013W Consult R eading Room Performing Organization Address City/State/Zipcode Phone Number GE RIS after 08/25/2018 Insurance Payer Benefit Plan / Group Subscriber ID Type Phone A ddress MEDICAID - MEDICAID MEDICAID [employer] xxxxxxxxx Medicaid [facility] CARE Non-Contracted Advance Directives For more information, please contact:[address] [phone] Code Status Date Activated Date Inactivated Comments Full Code 02/14/2019 1:58 AM 02/18/2019 4:47 PM This code status was determined by: Patient Full Code 08/27/2018 4:58 PM 08/31/2018 2:03 PM This code status was determined by: Patient Full Code 07/26/2018 10:48 AM 08/01/2018 4:32 PM This code status was determined by: Patient Full Code 07/09/2018 10:30 PM 07/19/2018 3:01 PM This code status was determined by: Patient Full Code 05/30/2018 8:02 PM 06/16/2018 12:50 PM This code status was determined by: Patient
[2019-08-26] MEDS ORDERED: NA CHLORIDE 0.9% 1,000 ML ONE ×3 (14:56→23:41)
--- NOTE | 2019-08-26 15:02 | RAD REPORT ---
EXAM DESCRIPTION: RAD - Chest Single View - 08/26/2019 2:53 pm CLINICAL HISTORY: hypoxemia, cough Chest pain. COMPARISON: Chest Single View dated 08/27/2018; Chest Single View dated 07/26/2018; Chest Single View dated 07/09/2018; Chest Single View dated 05/30/2018 FINDINGS: Portable technique limits examination quality. Small opacity in left lung base laterally suspicious for mild infiltrate or pneumonia. The lungs are otherwise clear. The heart is normal in size.
--- OUTSIDE RECORDS SUMMARY | 2019-08-26 15:02 | XMS REPORT | Continuity of Care Document ---
:[address] [facility] t Address [address] [place] [address] Care Team Providers Name Role Phone Montrell Coughlin Primary Care Physician MARÍA Attending Clinician Unavailable María WADE Attending Clinician Wing De La Rosa MD Attending Clinician [phone] Anaid Pinon Attending Clinician Fortunato WADE Attending Clinician Get Avendaño MD Attending Clinician Ashlyn Childs Attending Clinician MICHAEL Attending Clinician Unavailable Michael WADE Attending Clinician Farhat De Oliveira MD Attending Clinician Kadi Parks MD Attending Clinician Larry Gotti MD Attending Clinician Josue Gray MD Attending Clinician Silviano Franco CRNA Attending Clinician RAFAELA GILL Attending Clinician Unavailable SATHISH Attending Clinician Unavailable JER CELAYA Attending Clinician Unavailable FORTUNATO Admitting Clinician Unavailable MICHAEL Admitting Clinician Unavailable RAFAELA GILL Admitting Clinician Unavailable SATHISH Admitting Clinician Unavailable JER CELAYA Admitting Clinician Unavailable Payers Payer Name Policy Policy Effective Expiration Source Type Number Date Date MEDICAID - MEDICAID MGD xxxxxxxxx [facility] [id number] Medical Non-Contracted Center Problems Condition Condition Condition Status Onset Resolution Last Treating Co mments Source Name Details Category Date Date Treatment Clinician Date Obstructiv Obstructiv Disease Active [facility] e jaundice e jaundice 1-10 Mariah kes - 00:00: Medical [place] GI bleed [facility] bleed Disease [facility] [place] Leukocytos Leukocytos Disease Active [facility] is is 08-27 [facility] - 00:00: Medical [place] Hypomagnes Hypomagnes Disease Active [facility] emia emia 07-28 [facility] - 00:00: Medical [place] Pancreatit Pancreatit Disease Active [facility] is is 07-27 [facility] - 00:[facility]: Medical [place] Peripancre Peripancre Disease Active [facility] atic fluid atic fluid 6- Mariah kes - collection collection 00:00: Me dical 00 [place] Cholangiti Cholangiti Disease Active [facility] s 05-30 [facility] - 00:00: Medical 00 [place] Allergies, Adverse Reactions, Alerts Allergy Allergy Status Severity Reaction(s) Onset Inactive Treating Comm ents Source Name Type Date Date Clinician Morphine Drug Active Nausea [facility] Allergy Vomiting 1- [facility] - 00:[facility]: Medical 00 [place] tazobact DA Active [facility] am 09-11 Clear 00:00: Garrett [facility] piperaci DA Active [facility] llin 09-11 Clear 00:00: Garrett [facility] vancomyc DA Active [facility] in 09-11 Clear 00:00: Garrett [facility] MEREPENE DA Active [facility] M 09-11 Clear 00:00: Garrett [facility] Vancomyc Propensi Active Rash Rash with [facility] ty to 08-27 lip [facility] - Analogue adverse 00:00: swelling Medic al s reaction 00 Center s Piperaci Drug Active Swelling, Pt [facility] Allergy Rash 6-10 received [facility] - obactam 00:00: Zosyn and Medica l 00 vancomyci Center n, and subsequen tly developed a rash with lip swelling. A few days prior to this, pt developed a rash to meropenem . Meropene Drug Active Hives, [facility]-0.9% Allergy Itching 6- [facility] - Sodium 00:00: Medical Chloride 00 Center Social History Social Habit Start Date Stop Date Quantity Comments Source Sex Assigned At [facility] Smoking Status Start Date Stop Date Source Never smoker [facility] edical [place] Medications Ordered Filled Start Stop Current Ordering Indication Dosage Frequency Signature Comments Components Source Medication Medication Date Date Medication? Clinician (SIG) Name Name HYDROcodone 2019- No 1{tbl} Take [address] -acetaminop 02-18 tablet by Mariah montez (NORCO 00:00: 23:59 mouth Medic al 10-325) 00 :00 every 8 Center 10-325 mg (eight) per tablet hours as needed for Pain for up to 7 days. Max Daily Amount: 3 tablets metroNIDAZO 2019- No 500mg Take [address] [facility] (FLAGYL) 02-18 tablet [facility] - 500 MG 00:00: 23:59 (500 mg Medical tablet 00 :00 total) by Marilla mouth every 8 (eight) hours for 3 days. ciprofloxac 2019- No 500mg Take [address] in HCl 02-18 tablet [facility] - (CIPRO) 500 00:00: 23:59 (500 mg Me dical MG tablet 00 :00 total) by [facility] mouth every 12 (twelve) hours for 3 days. HYDROcodone 2019- No 1{tbl} Take [address] -acetaminop 02-18 tablet by Mariah montez (NORCO 00:00: 00:00 mouth Medic al 5-325) 00 :00 every 8 Center 5-325 mg (eight) per tablet hours as needed for Pain for up to 7 doses. Max Daily Amount: 3 tablets ondansetron 2018-02- No 4mg Take [address] (ZOFRAN) 4 04-03 by mouth Luke s - MG tablet 00:00: 00:00 every 12 Med ical 00 :00 (twelve) Center hours. ferrous 2018-02 Yes 1{tbl} Q.5D Take [address] sulfate 325 2-15 tablet by Marilyn gupta - (65 FE) MG 00:00: mouth 2 Medi dk tablet 00 (two) Center times daily. pantoprazol 2018-02 Yes 40mg QD Take [address] e 0-23 by mouth [facility] - (PROTONIX) 00:00: daily. Medic al 40 MG 00 Center tablet pantoprazol 2018- No 40mg QD Take [address] e 7-28 08-27 tablet (40 [facility] - (PROTONIX) 00:00: 23:59 mg total) M edical 40 MG 00 :00 by mouth Center tablet daily for 30 days. HYDROcodone 2019- No 1{tbl} Take [address] -acetaminop 7-27 -14 tablet by Mariah montez (NORCO 00:00: 00:00 mouth Medic al 5-325) 00 :00 every 8 Center 5-325 mg (eight) per tablet hours as needed for up to 20 doses. Max Daily Amount: 3 tablets ondansetron Yes 1{tbl} Take [address] (ZOFRAN-ODT 6-27 tablet by Marilyn gupta - ) 4 MG 00:00: mouth Medical disintegrat 00 every 8 Cente r ing tablet (eight) hours as needed. HYDROcodone 2019- No 1{tbl} Take [address] -acetaminop 6-27 -14 tablet by Mariah montez (NORCO 00:00: 00:00 mouth 3 Med ical 10-325) 00 :00 (three) Center 10-325 mg times per tablet daily as needed. Max Daily Amount: 3 tablets docusate Yes 100mg Take [address] sodium 6-14 mg by Adriana - (COLACE) 00:00: mouth as Medic al 100 MG 00 needed. Center capsule nystatin 2019- No Q.5D Apply [facility] (MYCOSTATIN 5-12 05-11 topically Mariah Schmid ) 100,000 00:00: 23:59 2 (two) Medi dk unit/gram 00 :00 times Center powder daily. Vital Signs Vital Name Observation Time Observation Value Comments Source Respiratory rate 2019-02-18 14:11:00 18 /min [facility] Oxygen saturation in 2019-02-18 14:11:00 97 /min [facility] Arterial blood by Medical Ce nter Pulse oximetry Systolic blood 2019-02-18 12:03:00 98 mm[Hg] [facility] pressure [facility] Diastolic blood 2019-02-18 12:03:00 63 mm[Hg] [facility] Heart rate 2019-02-18 12:03:00 78 /min [facility] Body temperature 2019-02-18 12:03:00 36 [place] [facility] Body weight Measured 2019-02-15 07:00:00 70.852 kg [facility] BMI 2019-02-15 07:00:00 22.41 kg/m2 [facility] Body height 2019-02-14 07:00:00 177.8 cm [facility] Procedures Procedure Date / Time Performed Performing Clinician [facility] e RHYTHM STRIP - SCAN 2019-02-26 16:18:13 Provider, [facility] TRANSFUSION SERVICE 2019-02-19 18:00:43 Provider, [facility] REPORT [facility] RHYTHM STRIP - SCAN 2019-02-19 11:21:51 Provider, [facility] PREPARE LEUKO-REDUCED RBC 2019-02-18 23:54:00 Jacob Pinon [facility] TRANSFUSION SERVICE 2019-02-18 18:00:29 Provider, [facility] REPORT - [facility] COMPREHENSIVE METABOLIC 2019-02-18 13:36:[address] [facility] FERRITIN 2019-02-18 13:36:00 Brian [facility] HEMOGLOBIN AND HEMATOCRIT 2019-02-18 12:16:00 Jacob Pinon [facility] TRANSFUSE LEUKO-REDUCED 2019-02-17 14:53:01 Jacob Pinon [facility] RED BLOOD CELLS [facility] TYPE AND SCREEN, 2019-02-17 09:56:[address] [facility] HEMATOCRIT 2019-02-17 06:19:00 Carlos Fan [facility] CBC (HEMOGRAM ONLY) 2019-02-17 04:18:00 Jacob Pinon [facility] BASIC METABOLIC PANEL (7) 2019-02-17 04:18:00 Jacob Pinon [facility] VITAMIN B12 AND FOLATE 2019-02-17 04:18:00 Jacob Pinon [facility] TSH/FREE T4 IF INDICATED 2019-02-17 04:18:00 Jacbo Pinon [facility] IRON, TIBC, % SAT. 2019-02-17 04:18:00 Jacob Pinon [facility] (WITHOUT FERRITIN) [facility] Cente r LIPASE 2019-02-17 04:18:00 Henderson [facility] HEMOGLOBIN AND HEMATOCRIT 2019-02-16 10:19:00 Jacob Pinon [facility] HEPATIC FUNCTION PANEL 2019-02-16 04:23:00 Fortunato [facility] PT/APTT 2019-02-16 04:23:00 [facility] PROTHROMBIN TIME/INR 2019-02-16 04:23:00 [facility] CBC (HEMOGRAM ONLY) 2019-02-16 04:23:00 Jacob Pinon [facility] COMPREHENSIVE METABOLIC 2019-02-16 04:23:00 Jacob Pinon [facility] LIPASE 2019-02-16 04:23:00 Henderson [facility] REPORT OF PROCEDURE - 2019-02-15 12:51:41 Uriah Childs [facility] ENDOSCOPY [facility] [place] ERCP 2019-02-15 12:32:00 Uriah Childs [facility] CYTOLOGY REQUEST 2019-02-15 12:26:16 [facility]-02-15 12:26[facility] & AUTO 2019-02-15 11:55:00 Ricardo Rainey [facility] ERCP 2019-02-15 11:00:00 Uriah Childs [facility] ERCP,BALLOON SWEEPING 2019-02-15 11:00:00 Uriah Childs [facility] ERCP,BILIARY STENT 2019-02-15 11:00:00 Uriah Childs [facility] HEPATIC FUNCTION PANEL 2019-02-15 06:00:00 Melissa Farmer [facility] BASIC METABOLIC PANEL (7) 2019-02-15 06:00:00 Melissa Farmer [facility] PT/APTT 2019-02-15 06:00:00 Fortunato cece [facility] PROTHROMBIN TIME/INR 2019-02-15 06:00:00 Melissa Farmer [facility] CBC W/PLT COUNT & AUTO 2019-02-14 06:24:00 Melissa Farmer [facility] (CELLAVISION MANUAL DIFF) 2019-02-14 06:24:00 Melissa Farmer [facility] HEPATIC FUNCTION PANEL 2019-02-14 04:34:00 Fortunato [facility] BASIC METABOLIC PANEL (7) 2019-02-14 04:34:00 Melissa Farmer [facility] PT/APTT 2019-02-14 04:34:00 Fortunato cece [facility] PROTHROMBIN TIME/INR 2019-02-14 04:34:00 Melissa Farmer [facility] REPORT OF PROCEDURE - 2018-09-04 17:05:14 Negro Billings [facility] REPORT OF PROCEDURE - 2018-09-02 14:20:35 Provider, Pawan [facility] SCAN Scanning [facility] CBC W/PLT COUNT & AUTO 2018-08-31 05:21:00 Laura Hobbs [facility] TRANSFUSION SERVICE 2018-08-30 17:51:15 Provider [facility] HEMOGLOBIN AND HEMATOCRIT 2018-08-30 12:34:00 Osman Parks [facility] BASIC METABOLIC PANEL (7) 2018-08-30 05:25:00 Laura Hobbs [facility] PHOSPHORUS 2018-08-30 05:25:00 Compa Loaiza [facility] MAGNESIUM 2018-08-30 05:25:00 Fadia [facility] HEPATIC FUNCTION PANEL 2018-08-30 05:25:00 Fadia [facility] CBC W/PLT COUNT & AUTO 2018-08-30 05:25:[facility] LEUKO-REDUCED RBC 2018-08-29 23:54:00 Rajendra Carrasco [facility] TRANSFUSION SERVICE 2018-08-29 18:02:07 Provider, [facility] COLONOSCOPY,POLYPECTOMY 2018-08-29 18:00:00 Maliha Gotti [facility] REPORT OF PROCEDURE - 2018-08-29 10:43:35 Maliha Gotti [facility] TISSUE EXAM 2018-08-29 09:32:00 Maliha Gotti [facility] BASIC METABOLIC PANEL (7) 2018-08-29 05:07:00 Laura Hobbs [facility] PHOSPHORUS 2018-08-29 05:07:00 Compa Loaiza [facility] MAGNESIUM 2018-08-29 05:07:00 Fadia [facility] HEPATIC FUNCTION PANEL 2018-08-29 05:07:00 Fadia [facility] CBC W/PLT COUNT & AUTO 2018-08-29 05:07:00 Anjel [facility] TRANSFUSION SERVICE 2018-08-28 18:02:43 Provider, [facility] SCAN [facility] HEMOGLOBIN AND HEMATOCRIT 2018-08-28 16:39:00 Compa Loaiza [facility] REPORT OF PROCEDURE - 2018-08-28 11:49:[address] [facility] ENDOSCOPY [facility] UPPER ENDOSCOPY 2018-08-28 08:00:00 Maliha Gotti [facility] BASIC METABOLIC PANEL (7) 2018-08-28 06:33:00 Laura Hobbs [facility] MAGNESIUM 2018-08-28 06:33:00 [facility] 2018-08-28 06:33:[address] [facility] LACTIC ACID, VENOUS 2018-08-28 06:33:00 Anjel [facility] TROPONIN I 2018-08-28 06:33:[address] [facility] HEMOGLOBIN AND HEMATOCRIT 2018-08-28 06:33:00 Anjel Laura [facility] CBC W/PLT COUNT & AUTO 2018-08-28 06:33:00 Anjel, [facility] TRANSFUSE LEUKO-REDUCED 2018-08-28 05:09:56 Rajendra Carrasco [facility] RED BLOOD CELLS [facility] TROPONIN I 2018-08-28 00:03:[address] [facility] HEMOGLOBIN AND HEMATOCRIT 2018-08-28 00:03:00 Laura Hobbs [facility] ABORH, MANUAL 2018-08-28 00:03:00 Sade Mccormack [facility] TYPE AND SCREEN, 2018-08-27 20:12:00 Derrell Rodriguez [facility] AUTOMATED [facility] URINALYSIS W/ REFLEX 2018-08-27 20:08:00 [facility] BLOOD CULTURE 2018-08-27 18:31:[address] [facility] BLOOD CULTURE 2018-08-27 18:30:[address] [facility] TROPONIN I 2018-08-27 18:30:[address] [facility] LACTIC ACID, VENOUS 2018-08-27 18:30:00 Anjel [facility] COMPREHENSIVE METABOLIC 2018-08-27 18:30:00 Anjel [facility] FIBRINOGEN 2018-08-27 18:30:[address] [facility] PROTHROMBIN TIME/INR 2018-08-27 18:30:[address] [facility] MAGNESIUM 2018-08-27 18:30:[address] [facility] PHOSPHORUS 2018-08-27 18:30:[address] [facility] HEMOGLOBIN AND HEMATOCRIT 2018-08-27 18:30:00 Anjel Laura [facility] CBC W/PLT COUNT & AUTO 2018-08-27 18:30:00 Anjel [facility] XR CHEST 1 VIEW 2018-08-27 17:15:00 Anjel [facility]/BEDSIDE [facility] Results Test Description Test Time Test Comments Results Result Comments Source Prepare Leuko-Red RBC 2019-02-18 23:54:00 Test Item Value Reference Range Interpretation Comme nts CROSSMATCH (test code = 2264) COMPATIBLE Unit ABO (test code = 9960488) A Pos UNIT NUMBER (test code = 934-0) [id number] Status (test code = 0706605) [place]_TIMEINCHART Blood Bank Product (test code = 2263) RED BLOOD CELLS PRODUCT CODE (test code = 933-2) [id number] [facility]00 Test Item Value Reference Range Interpretation Comments Case Report (test code Medical Cytology = 104) Report Case: [id number] Authorizing Provider: Uriah Childs Collected: 02/15/2019 1226 Ordering Location: [address] Received: 02/15/2019 1529 Service Pathologist: Nereyda Causey MD Specimen: Common Bile Duct, Distal bile duct brushing in CRR DIAGNOSIS (test code = h2itmLQcQNCsx4zgVGOprR 3220) FuZzEwMzNcZnRuYmpcdWMx DCkklqPkCOnar6AdU6LgTy AwMFxhbnNpXGRlZmxhbmcx LHEeNWX5vmGxHRWdAHsfSI YqCYdgRp0fuTEmdCueQuIu GHUdb1jeqnQSwzfkwUy7j7 tmNVOdGcG6gVLwUHurE1xj ouVnnUFuPUMnAIp8fK54NV QmqE7kmRHbJUzixcRaUgJ3 ETzvFPPxPeU3YNZwlIKoMI DqW4dwEKMrVQsiZEDmAOuy rTHxLGM7yOnoo8S0wMWznC HeoBboIbHsIxSuHHBKg9Oy JHs7eYbeM3JjMKZpRsR4tK QgUGFyYWdyYXBoIEZvbnQ7 oL18DLekwyV3nIVjc8Hro5 7by691pR4voAFaKRI7VFQf RKIksXScGVBeBAW8SCAhcT MpF0x1UgIcaLNuE5N3WwUr aOXgE2F4YnCswTZrF1C8Vz NcuXEkCIVpgXDlYw0bcRYy yPCqfy3dls06INQ8u1LoeP bqITP9OHX4FdZhKz8edTFk QMKpFJ7nHwWcaXZvBWByaz 97eOmkXNsvboWfaB2cRlLr ZJFeeQPpXSNwEB1drYCgTX BweT8eathwTCAuGzEegyca XIVxaVgkunOwLn2cjXgmOK T7QJwwF5wbmU5yHsB0GGub L9mqsQ4bFGl1XEjnwJL9FV IqoN6rZK2pvosxy8ozKzSf US3bzdvhm4tjTeApPF2pei j0y1ltSwQwEP9keaeeh2aj NzIwXGhlYWRlcnkwXGZvb3 EadxllBKSjv7MkG2ZyyTxn Z53xdTreY68oJGHagXxztS 9peTtqgZ0kSfYxSlSrTYeh bFxwbGFpblxmMVxmczIwXG zbpjhnAIQkKWcwI4qfWfMi BWDghNtiEFoif3YvLORfQI FfVxXeS32PKX8HPLBMWKFr RFVDVCBCUlVTSElORyAoQ1 sKR1MMMB9XFUJYJXYRUEzQ TENPQ2LTFZvnsRogTVKyEM TkVH8NQTPEQEBMJIrONJRE XYLTEAlIVlEAEkRBJN6AIW BGQVZPUiBSRUFDVElWRSAo U1HTWDCYKT1EWjFxVSZpct 70IOP9EeVny6X1IRL4JUBv ETRnr4gpCPMveDClBqIxTp NcZnRuYmpcdWMxXGRlZmYw l7rlz731jVZmt4kxHZUlKo D8sYSxZJOfkIUaD196BURd TNmpe1vgs9AmKZTmfRUvy9 P0HNFKfjjjvTj4mJcvY26n n2L0IsstU6acFUZqGVPlC7 OyUX7qFQWkHcs3LTY8GQL6 CSXnPGFlH1JwCB5hUGSqbU ChVRk1l0wolUtwZHOsRQS4 c1peHVnberHhVO0lgd2alK h4t2jchdQeRMKtDUThyRZZ YOUoQ8IveQraLb5fhQs3xI xaUpmaSJY4Jxg5IZ7ckw37 exc5cHimOMOmalubBhC0TG lkAAEykqmjEAk0XYncXFFm aOW6JRTbsQCjT2SwSMCdFO 6ljqq2CNA2PRtfWGOdFfJ9 NDBcaGVhZGVyeTcyMFxmb2 03QLU9YcKuNT7wZ7Ofn6V7 nW6skANmRGTwtJWpRvEdMV Mqrb9obREqUBftw2MvXKH8 xcO6vPOvmCGhEWWeRnX4QW esZK6wtd52CSGtCVX7tr4e bGNccGdicmRyaGVhZFxwZ2 JaBTXhg035JUReN5AtWJOa z5D9tiKwSuWrIUGogSV0hm D2JPKvQX6ojmxkl6siBLoc QBrzCYRkiwS8dsQ0MPNtpG XkT3NdzX9hRVXrMZ9ifzkf j8mgWIQ8EPrkYWWkTFG0Mo IfXIJlk6Hrwmg1HpRjl7Gk cWUvTXpjU54au493QNPujf TzU6ulvSUnimpvuYXgdujn BTrpvpT6AFKgPIlcdtzqKK WpHUwcF0aeDyYlYIRdwUvy HAjus8FhNJDePRLzHkYuzS SeNMWqPed6FFEvhBMeMSFq KbJcC9owhoebJbUNDODvs5 krO3ixmGKYmDYmI9NwKKgs fpPaJQznSJrfYEP1HGG5Xd 74RuU8ETWuqc95 COMMENT (test code = c8hdvPSxNLCyeTVpWyZwUY 3359) TqXYSjq6miXCYeeTEeThQg MzNcZnRuYmpcdWMxXGRlZm Xel2ysc985bITbq5xsVYGb MvD7iMWtYZFevKJeI448e3 nxl2gkfbXznZB6OXLzKVO9 FUyvbxEisbT9SGvmgIAyCg Z3MQegzbGfVItuflCyveYu Umc9ODQlU959ULW2rJkcf8 tvUHE8ANJbVAEhRrJeHn4z tPNdR319PCVwXHKIGUKmbF l3ZXOmmcMsrtScjOYWk603 S213v8dlMWPygrLslRhKrj opk5xbC776DEImoCUvraMh XzFjLUQzxTNxzSQ6ZPOfPY 6oufyaPsUyCF6rskukKtXn OE3bolz9EiHeSO0vmmxuCn MgZKmiYFKqbwldJFGgl2Qg svrrJM9tL7Llf4J6iD0tvV LvWHXmgQUyIxJgNSPbgg0s kDUvFTvxc1LjKBT5eoD7mZ XjgFLbTSLjNY11Mhlmq7Hw JeoqPJQ2RJSzycIai0Kbb4 uwQlVpytIdH5puP9YqYKQr IXMaGGHuNkKhgdIvs4Oni3 RziDHocNv0y6qrKHQkGJSw eXadr4tkEID0MVFzM8I1nW Yie5qcBSvjBBJhyJN3bnng EBcrWGTalwE3fyyfWXmzIL PwsRM7jbpiHZplQYWkVkH5 evkrWOypPSJnSXO7JXtnp2 51RSN3SPkuIzniIWdwWTEw bmNvbnRccGduZGVjXHBsYW luXHBsYWluXGYwXGZzMjRc nOhgrVbqtJ8nDzKqYzSbJJ bpQR9aNCLbA8wvvTPkHWGh KIOqE9dfOdYjzY8rdWsnUE xmczIwIEZldyBtaWxkbHkg DYX9eUhkNWwtA2CxeCOeCI EdQBQkGNDcjsGyOO0vZMky dDfikYfhHCrzl3Ejwhzjm2 Kke9PyzuMsODPjutDqW9Th muOckCHtN6MmjaAfjhSbAJ ZvcmVkLiBDbGluaWNhbCBj w1LyTNznrZowlaPvacJcIE LsvC3aemHjFQ4ceXQgdE== CPT Code(s) (test code l4lheHJgLETdvMZrStIpUO = 3357) PlVRTma2mkAXGifFUxImXo MzNcZnRuYmpcdWMxXGRlZm Dzn9fmm295eKVug8hpCUUu TeS6rDKmACPdgGThC076h9 vln3dkcsKjcQC5MPWeHNY5 HNexzcCikrN6TWhckIDhWs P0ERefmxUiYRrabrCevdUn Twc6SVYrF878LHA2pIbnd0 hcTQD6OVViMWYmEqHfGs6y kPGwC252YGGbZLDDAEZmnX d5FDIwhfFcjtRkmNDXs463 N134k2unGGYnvkGczIxVky uqt4ozL064RPDqaMDvtmYz EtOgOLIixLTuvZD4TNLxTF 2lxuahBbIcBZ4eltuaVwCy SE7gwoo2OtAyWP6ovvqfEu YzAGrpRPObhvkhZZKgn8Ne fohhVC8gQ7Bmo1E5rA2pqO FoZJEujVJiMzJrFGWuot8t iYTyLOlra9XdIAU6uwS0uH IwlMIhLONtUD54Hwxbe0Ji RblrXQE0LMAomfCij4Yki9 pfYwFurwZrR2htK4LsTTNi MHMhQMVtLvKscrYch7Hop0 DviKWeiTm9q8aqGNLwSVMy iBjmv7inOJJ7TLNyB8I3iL Pcz0sfMMioBOZcxXM9bzeq TKsjENTmoyY1yspfWTzhET PhjWK7dobiHKjnPIKyUkH9 pmsrQZekXBKzLGV8QApzn9 87ODV8HPkrXhzkLPktNJOx bmNvbnRccGduZGVjXHBsYW luXHBsYWluXGYwXGZzMjRc pAvrvVzfqE2zEfAmPeKoLZ kiKC2yMIJmX2efeYAvWDYk AHWoK9rsUtPwzP9fyIxfVX nnumVpGYm6DJZ5HUV4DFXk NVxwYXJ9 CLINICAL DATA (test j4vygBOpLQWltXMoQfEvJD code = 3355) VuCOPcf5jiYRVowBOiVyVm MzNcZnRuYmpcdWMxXGRlZm Vsc2hig181aIXrc4snNWMp NwB8kHGiKFWcbFKbC836OB OxGRjal6mmn9CoBDHkhWHz m7V7PMKQyenxkAk3jLbrU6 6vg3C2DznhN7maWLWdUCWy Q7SpLH0nXXFdUrq9VFL6XZ L7IMAuCOYzO1LgUC6vESCz fQSqARr6f9zjpUxvNOGaZN F0p0cdWHwuznQwUY0hvb3l rAi8z8elnlGcHIBoRENsdL KDPRPiC1UzfOrnOf6njJj0 yWyvPnfeTJY4Ciw2GQ2zds 57ppm3qTuuMIBgjjhnVuX7 VBjlTUQtlgvnIKn4NEdbZX JnbDcyMFxtYXJncjcyMFxt YXJndDcyMFxtYXJnYjcyMF xnUHJcKOE2RYxuz909RXN8 FPmhj4jji8apqDHhDtk2LJ JiJwQbIcftFDxlc0Amk2jv SKRunl1gDRK1rXEsqDxln6 Q4nYUqVQOnrTLeeqViYWNa JaY8UKfiZX3sxe69MMYjCQ D6en0zwVFirBztxoGnmENt CPghO7LmWAEzg678MCJmY3 DbMPLhu2X2jrTxKlMxEVNt xHC8pqC5YKEdMOs5mTQsnt T8pzMpuDPfG4nygM75IyDs wKZnX5EwjY50KcGwpKKzD7 OogC12JgCcxOIxB6KrfF18 MlKcrSXgQTWshXJbAb1hlW CceFAag7MwbMEvTIqyZ90c h689DVOzvlUpS1jryMBqny ambEYumpxiLAtfnwB3OHGa XHBsYWluXGYxXGZzMjBcbG FuZzEwMzNcaGljaFxmMVxk MvMzKVGiJAcgC1vjMuHkDx MyMCBKYXVuZGljZSwgYSBs v6MatJr8UEDmUfhbwHQtyH PdhSRpZ2I7mtBvj3o0xSY3 iRD9ymPmpQJoiVxbrJwxab xwYXJ9 SPECIMEN SOURCE (test m0zetZFxJZTswRXuEyTmUZ code = 3377) HxOQCvf2ukIGNauKTcYrBd MzNcZnRuYmpcdWMxXGRlZm Imo7der711zBObm4hwHJGf GqG3oWMhTNJfnLFxL124g3 vua2fuwsAubLT4VCNfSSW7 ASggxzBkejZ8IYonxYIlJe V9FTreieWtQPfjlmVjenAi Zkt1VSSpD878WZS7zXwhh1 scGWU5DIPcECQzDsIgJl5k wHGbS027YXUdWNPBYCByxL a9BWZfltFyeeSwnDJNe019 A292j7rjLGAzbdPfeDrXdr qfs7paN511SMQziOKtttUt MdMmLVUwcIToyMN0YQIjML 1suvsaJrHhTZ6edhthItJs LM6axew8KpCpBY9kjtstKz BbMNkhQBNoduceSBDuv4Xk wnjqVJ1tK8Aqd0E8eQ5bcS XuSJCldXPuTbLmTGLfkh9m vVSaUJczw3XnZNW3onV9sM EbpECzGGEsJM49Nddgv7Em XwanJAM4MHPultPpm2Mtz4 epUtCtezJdZ3gpO7GyQLDp HAIbNQQvQtXfzoLdv5Phe9 IsqZVxyZl1z5xuMCVkKJWa fWsaa0ymMBQ2FJOmE0F6nR Glz7lsOKtzJRLisYG3rois KAibQJEtoaV0zykhAZdnIZ OcsHD3oxvcNAhiFGZcCzI5 sotyBOfxJASzPDS0BCdtm5 48AEX5GMbyDomuUZufWHCl bmNvbnRccGduZGVjXHBsYW luXHBsYWluXGYwXGZzMjRc eFtwiUkhtU4dHnLnSvEeTU qsOL1oUDXtW1gfxWObIURv NPGiW7reAlPbiP2cfQqrKE ysxeGxTUYQZZ3NVlDZNUdC WGQQU7IlLiDFX3mVHcrwtE FyfQ== GROSS DESCRIPTION (test b1ipiKRvEODjsERbIfEjAK code = 3366) IqORYyw1qmAHKbsHTzZlJp MzNcZnRuYmpcdWMxXGRlZm Cni6xut921aTRnb8cdSZDi LvU6jEYzALIbgMEhH254HP BpNKhtc2tok4RlNFXhmYTf r2B9LBJJsmrmxFl0lXhuB0 0hd5V0WmrtM7mrALRiJGRw A0YiXG3lPOSqGbz0RPT6PU N3TFJiSFIkG3ReXO8lYXXf rEQcXQh4m5incBcxNPKqKD K6e4fgYApwqwVfCC6gti1z lNq8n9ihzuGlQDObZDLhgL IEVGOgH8HpeXchWo2jwYi0 hEzyZjatFGY3Wqq7YL5joh 12yxs9jDwnZIXbhsgkBlZ3 TIrrJIXbiwqaOJq9FRtrOO JnbDcyMFxtYXJncjcyMFxt YXJndDcyMFxtYXJnYjcyMF gfTCZlAZC9CCvql347DKM5 EHoae0qqw7updDCcHcn8EZ GdUgMjTnybGXcgf0Ioh6ph VNQeyt7aQMQ6rCVopQduq4 C8yHEjRDTcqZLrfoZyYCGo DaD4GSfzZT6nft50CKOwUK Q6qg6hnGElxYpeetIapSZd HAunM4EgLKSwr276THBaE2 AaITGjg3J4qcFhUwWsZDWu sJG4lzM1RVQmINp0jHPibb L0ihPmzKLtE7lweX25EsKh bTTcZ4CanU98AoMyqKTwJ9 FocE55XzHvnWPrJ5XnrP28 XfYxrOBtRAIgwXTxJn4rcL HtxHGqr1OecMUhPQuuW98d h124JAAdadMyT1fgtFDwbs gxoREdnocwEFtrvhP2CLLc XHBsYWluXGYxXGZzMjJcbG FuZzEwMzNcaGljaFxmMVxk IvJrADQpNJvkV6rdVwIpIw TbWyZyYAHpzZBolT3aK5l1 h3EiA9msetSdJdOgYXY1oG 4rqUpelfbpG2EtlKOluL5b ozCmQ00vlP2xoU8qTERbSl qobAYqELBfrOlmM0RhIJbh MDExMTIwXHBhciBSZWNlaX ZlZDogMDExMzIwXHBhcn0= MICROSCOPIC DESCRIPTION i1erfSXzMDOmiTYlRmCiOD (test code = 3371) WbXSXcx8elYSYxhFRqCiOg MzNcZnRuYmpcdWMxXGRlZm Crz0sel586mVLew9caCRSn TjQ3eRIsVKTzxDLjD254c8 ndb6pfbqHreNI7XVSsGZQ6 NDiudgHqztD9BSrdxPYcRs G7TRalwkGoRFetnbWhwbYs Ehr4XQSgS319PAK4fIaqk3 eeVJO9LXDqTHUpPtEdKf7y sCPlL749NKSpIKKRXXWjuD e6LZAqnxKrhlGqfQKQf209 K686v7bqLTRznwUxeShBbv whx6iaY772DGUieMHlkhCt XgFoFYDjvJXitPX3SBSeMB 4nntopZqJsIP4lbwpbGyDz OK1advp8ItPbRT8uuflgTn MlTIusJZBsdbdoQRLci8Yp psixRD7hY9Jxe4I9rU3niO BdWOJmiRIzAjNzHLXaey3w jTDqELcrz4EyQES1ggS5xU MzgZQlEEFpDJ17Caghu2Df YiibMWA1EXZnbhQkn5Nwm7 zyPxRttiYjP9prW6MwVRMl GPVnGTMyKwLeljDbn7Lkv4 SstDJftLv5w3zsRZZwTPXi uPkdj5yzGMJ4PNMoB9C5lS Cbs1trGKuzCNJpjDE4seki EAatMHQwexX8edliUWwoMA VncUH8pbabKLqoWIMyCvM4 wtydPVruCSRtJMA0CQhda0 78ILK7ZNmhUevfCZrkLKEc bmNvbnRccGduZGVjXHBsYW luXHBsYWluXGYwXGZzMjRc oLcadGwcyK7aZjIeWyOyFS tsLW1vQEXsV7iwdWVeWEGt SHEfP5toIuDdjN3apHshTF ulmeYgBJEhxnEemj0vBP5y cGFyfQ== STATEMENT OF ADEQUACY Satisfactory (test code = 2757) Gross assessment was [facility] performed at (test code [facility], = 2777) Department of Pathology, [address] [place] [id number], Technical component was [facility] performed at ([facility], = 2778) Department of Pathology, [address] [place] [id number], Professional component [facility] was performed at ([facility], code = 2779) Department of Pathology, [address] [place] [address], [facility] 17:29:00Medical Cytology Report Case: [id number] Aut horizing Provider: Uriah Childs Collected: 02/15/2019 1226 Ordering Location: [address] Received: 02/15/2019 1529 Service Pathologist: Nereyda Causey MD Specimen: Common Bile Duct, Distal bile duct brushing in CRR COMMON BILE DUCT BRUSHING (CYTOSPINS AND CELL BLOCK): - MILDLY ATYPICAL CELLS PRESENT, FAVOR REACTIVE (SEE COMMENT) Signing Pathologist Direct Phone Line: [phone] signed by Nereyda Causey MD on 02/18/2019 at 5:29 PMFew mildly atypical cells are present and with the history of stent, a reactive process is favored. Clinical correlation is recommended.72260, 95426Ouikiwwx, a localized biliary stricture with upstream dilationCOMMON BILE DUCT IFSRYHCP31 mls in cytorich red; 2 cytospins, cell block (collodion bag)Collected: [id number]: [id number].SatisfactoryB[facility], Department of Pathology, [address] [place] [address], [facility], Department of Pathology, [address] [place] [address], [facility], Department of Pathology, [address] [place] [address], [id number] 14:54:00 Test Item Value Reference Range Interpretation Comments Ferritin (test code = 187 ng/mL 5-275 2276-4) ABAD (test code = ABAD) Chief Cruiser ID - LA Lab Interpretation (test Normal code = 63117-6) [facility] HospitalFERRITIN2020-01-14 14:54:00 Test Item Value Reference Range Interpretation Comments FERRITIN (BEAKER) (test code = 361) 187 ng/mL 5-275 Chief Cruiser ID - LAComprehensive metabolic atcba5322-68-74 14:41:00 Test Item Value Reference Range Interpretation Comments Protein, Total (test 5.4 6.0- 8.3 gm/dL L code = 2885-2) Albumin (test code = 1.9 g/dL 3.5-5 L 90152-7) Alkaline Phosphatase 1089 U/L 40-150 H (test code = 6768-6) Total Bilirubin (test 2.7 mg/dL 0.2-1.2 H code = 1975-2) Sodium (test code = 136 meq/L 461-937 4422-2) Potassium (test code 3.8 meq/L 3.5-5.1 = 2823-3) Chloride (test code = 105 meq/L 98-107 2075-0) CO2 (test code = 28 meq/L 22-29 2028-9) BUN (test code = 3 mg/dL 7-21 L 3094-0) Creatinine (test code 0.50 mg/dL 0.57-1.25 L = 2160-0) Glucose (test code = 90 mg/dL 70-105 2345-7) Calcium (test code = 7.5 mg/dL 8.4-10.2 L 96498-0) AST (test code = 58 U/L 5-34 H 1920-8) ALT (test code = 30 U/L 6-55 1742-6) EGFR (test code = 195 mL/min/1.73 [place] [address]-8) NOT ACCURATE CREATININE CLEARANCE IN PREDICTING GLOMERULAR FILTRATION RATE . ESTIMATED GFR I S NOT APPLICABLE FOR DIALYSIS PATIENTS. ABAD (test code = ABAD) Chief Cruiser ID - CARLOS CSpecimen slightly icteric Lab Interpretation Abnormal (test code = 06413-7) [facility] HospitalCOMPREHENSIVE METABOLIC [id number] 14:41:00 Test Item Value Reference Range Interpretation Comments TOTAL PROTEIN 5.4 gm/dL 6.0-8.3 L (BEAKER) (test code = 770) ALBUMIN (BEAKER) 1.9 g/dL 3.5-5.0 L (test code = 1145) ALKALINE PHOSPHATASE 1089 U/L 40-150 H (BEAKER) (test code = 346) BILIRUBIN TOTAL 2.7 mg/dL 0.2-1.2 H (BEAKER) (test code = 377) SODIUM (BEAKER) (test 136 meq/L 136-145 code = 381) POTASSIUM (BEAKER) 3.8 meq/L 3.5-5.1 (test code = 379) CHLORIDE (BEAKER) 105 meq/L 98-107 (test code = 382) CO2 (BEAKER) (test 28 meq/L 22-29 code = 355) BLOOD UREA NITROGEN 3 mg/dL 7-21 L (BEAKER) (test code = 354) CREATININE (BEAKER) 0.50 mg/dL 0.57-1.25 L (test code = 358) GLUCOSE RANDOM 90 mg/dL 70-105 (BEAKER) (test code = 652) CALCIUM (BEAKER) 7.5 mg/dL 8.4-10.2 L (test code = 697) AST (SGOT) (BEAKER) 58 U/L 5-34 H (test code = 353) ALT (SGPT) (BEAKER) 30 U/L 6-55 (test code = 347) EGFR (BEAKER) (test 195 ESTIMATE D GFR IS code = 1092) mL/min/1.73 sq NOT ACCURA TE m CREATININE CLEARANCE IN PREDICTING GLOMERULAR FILTRATION RATE . ESTIMATED GFR I S NOT APPLICABLE FOR DIALYSIS PATIEN TS. Chief Cruiser ID - CARLOS CSpecimen slightly ictericHemoglobin and hjnkmhvgdh9750-09-00 12:27:00 Test Item Value Reference Range Interpretation Comments Hemoglobin (test code = 9.0 13.7- 17.5 GM/DL L 786-4) Hematocrit (test code = 29.6 % 40.1-51 L 4544-3) ABAD (test code = ABAD) Chief Cruiser ID - [id number] Lab Interpretation (test Abnormal code = 32604-2) [facility] HospitalHEMOGLOBIN AND [id number] 12:27:00 Test Item Value Reference Range Interpretation Comments HEMOGLOBIN (BEAKER) (test code = 9.0 GM/DL 13.7-17.5 L 410) HEMATOCRIT (BEAKER) (test code = 29.6 % 40.1-51.0 L 411) Chief Cruiser ID - [id number] Metabolic [id number] 11:55:00 Test Item Value Reference Range Interpretation Comments Sodium (test code = 136 meq/L 201-264 9004-2) Potassium (test code = 3.6 meq/L 3.6-5.5 2823-3) Chloride (test code = 105 meq/L 98-106 2075-0) CO2 (test code = 25 meq/L 20-29 2028-9) BUN (test code = <3 10-26 L 3094-0) Creatinine (test code 0.52 mg/dL 0.5-1.2 = 2160-0) Glucose (test code = 84 mg/dL 70-110 2345-7) Calcium (test code = 7.8 mg/dL 8.5-10.5 L 42356-9) EGFR (test code = 187 mL/min/1.73 [place]IM[place] [address]-5) NOT ACCURATE CREATININE CLEARANCE IN PREDICTING GLOMERULAR FILTRATION RATE . ESTIMATED GFR I S NOT APPLICABLE FOR DIALYSIS PATIENTS. ABAD (test code = ABAD) Chief Cruiser ID - [id number] slightly icteric Lab Interpretation Abnormal (test code = 93405-7) [facility] METABOLIC [id number] 11:55:00 Test Item Value Reference Range Interpretation Comments SODIUM (BEAKER) 136 meq/L 135-148 (test code = 381) POTASSIUM (BEAKER) 3.6 meq/L 3.6-5.5 (test code = 379) CHLORIDE (BEAKER) 105 meq/L 98-106 (test code = 382) CO2 (BEAKER) (test 25 meq/L 20-29 code = 355) BLOOD UREA NITROGEN < mg/dL 10-26 L (BEAKER) (test code = 354) CREATININE (BEAKER) 0.52 mg/dL 0.50-1.20 (test code = 358) GLUCOSE RANDOM 84 mg/dL 70-110 (BEAKER) (test code = 652) CALCIUM (BEAKER) 7.8 mg/dL 8.5-10.5 L (test code = 697) EGFR (BEAKER) (test 187 mL/min/1.73 ESTIM ATED GFR IS code = 1092) sq m NOT ACCURATE CREATININE CLEARANCE IN PREDICTING GLOMERULAR FILTRATION RATE . ESTIMATED GFR I S NOT APPLICABLE FOR DIALYSIS PATIEN TS. Chief Cruiser ID - [id number] slightly ictericType and screen, automated 2019-02-17 10:42:00 Test Item Value Reference Range Interpretation Comments ABO/RH AUTOMATED (BEAKER) (test A POSITIVE code = 2260) Ab Scrn (test code = 890-4) NEGATIVE [facility] HospitalLipase2020-01-13 09:47:00 Test Item Value Reference Range Interpretation Comments Lipase (test code = 72 U/L 6-51 H 3040-3) ABAD (test code = ABAD) Chief Cruiser ID - [id number] slightly icteric Lab Interpretation (test Abnormal code = 31845-5) [facility] HospitalLIPASE2020-01-13 09:47:00 Test Item Value Reference Range Interpretation Comments LIPASE (BEAKER) (test code = 749) 72 U/L 6-51 H Chief Cruiser ID - [id number] slightly ictericIron, TIBC, % sat. (without ferritin)2019-02-17 07:14:00 Test Item Value Reference Range Interpretation Comments Iron (test code = 2498-4) 15.0 ug/dL 40-160 L TIBC (test code = 2500-7) 124 ug/dL 250-450 L Iron % Saturation (test 12 % 20-55 L code = 2502-3) ABAD (test code = ABAD) Chief Cruiser ID - SOTERO M Lab Interpretation (test Abnormal code = 06366-8) [facility] HospitalIRON, TIBC, % SAT. (WITHOUT FERRITIN)2019-02-17 07:14:00 Test Item Value Reference Range Interpretation Comments IRON (BEAKER) (test code = 547) 15.0 ug/dL 40.0-160.0 L TOTAL IRON BINDING CAPACITY 124 ug/dL 250-450 L (BEAKER) (test code = 769) IRON % SATURATION (2) (BEAKER) 12 % 20-55 L (test code = 2590) Chief Cruiser ID - SOTERO MHEMOGLOBIN AND [id number] 06:32:00 Test Item Value Reference Range Interpretation Comments HEMOGLOBIN (BEAKER) (test code = 6.8 GM/DL 13.7-17.5 L 410) HEMATOCRIT (BEAKER) (test code = 22.3 % 40.1-51.0 L 411) Chief Cruiser ID - [id number]/Free T4 If Phlsvixwy7868-83-78 05:53:00 Test Item Value Reference Range Interpretation Comments TSH (test code = 20210-2) 2.31 0.35- 4.94 uIU/mL ABAD (test code = ABAD) Chief Cruiser ID - SOTERO M Lab Interpretation (test Normal code = 68025-7) [facility] HospitalVitamin B12 and Baqryi8917-16-00 05:53:00 Test Item Value Reference Range Interpretation Comments Vitamin B12 (test code = 665 pg/mL 721-393 7599-9) Folate (test code = 12.3 ng/mL >=7.0 2284-8) ABAD (test code = ABAD) Chief Cruiser ID - SOTERO M Lab Interpretation (test Normal code = 78336-9) [facility] HospitalTS/FREE T4 IF [id number] 05:53:00 Test Item Value Reference Range Interpretation Comments THYROID STIMULATING HORMONE 2.31 uIU/mL 0.35-4.94 (BEAKER) (test code = 772) Chief Cruiser ID - SOTERO MVITAMIN B12 AND [id number] 05:53:00 Test Item Value Reference Range Interpretation Comments VITAMIN B12 (BEAKER) (test code = 665 pg/mL 213-816 774) FOLATE (BEAKER) (test code = 362) 12.3 ng/mL >=7.0 Chief Cruiser ID - SOTERO MCBC (Hemogram only)2019-02-17 04:42:00 Test Item Value Reference Range Interpretation Comments WBC (test code = 6690-2) 5.9 3.5- 10.5 K/L RBC (test code = 789-8) 2.20 4.63- 6.08 M/L L MCHC (test code = 786-4) 30.7 32.3- 36.5 GM/DL L Hematocrit (test code = 4544-3) 21.8 % 40.1-51 L MCV (test code = 787-2) 99.1 fL 79-92.2 H MCH (test code = 785-6) 30.5 pg 25.7-32.2 RDW (test code = 788-0) 22.2 % 11.6-14.4 H Platelets (test code = 777-3) 307 150- 450 K/CU MM MPV (test code = 20761-2) 10.2 fL 9.4-12.4 nRBC (test code = 413) 0 0- 0 /100 WBC Lab Interpretation (test code = Abnormal 53945-3) [facility] (HEMOGRAM ONLY)2019-02-17 04:42:00 Test Item Value Reference Range Interpretation Comments WHITE BLOOD CELL COUNT (BEAKER) 5.9 K/ L 3.5-10.5 (test code = 775) RED BLOOD CELL COUNT (BEAKER) 2.20 M/ L 4.63-6.08 L (test code = 761) HEMOGLOBIN (BEAKER) (test code = 6.7 GM/DL 13.7-17.5 L 410) HEMATOCRIT (BEAKER) (test code = 21.8 % 40.1-51.0 L 411) MEAN CORPUSCULAR VOLUME (BEAKER) 99.1 fL 79.0-92.2 H (test code = 753) MEAN CORPUSCULAR HEMOGLOBIN 30.5 pg 25.7-32.2 (BEAKER) (test code = 751) MEAN CORPUSCULAR HEMOGLOBIN CONC 30.7 GM/DL 32.3-36.5 L (BEAKER) (test code = 752) RED CELL DISTRIBUTION WIDTH 22.2 % 11.6-14.4 H (BEAKER) (test code = 412) PLATELET COUNT (BEAKER) (test 307 K/CU MM 150-450 code = 756) MEAN PLATELET VOLUME (BEAKER) 10.2 fL 9.4-12.4 (test code = 754) NUCLEATED RED BLOOD CELLS 0 /100 WBC 0-0 (BEAKER) (test code = 413) [id number] 12:25:00 Test Item Value Reference Range Interpretation Comments LIPASE (BEAKER) (test code = 749) 64 U/L 8-78 [facility] FHEMOGLOBIN AND [id number] 10:31:00 Test Item Value Reference Range Interpretation Comments HEMOGLOBIN (BEAKER) (test code = 7.2 GM/DL 13.7-17.5 L 410) HEMATOCRIT (BEAKER) (test code = 24.0 % 40.1-51.0 L 411) Chief Cruiser ID - [id number], [id number] 09:17:00Reason for exam:->jaundiceFINAL REPORT A fluoroscopic unit was utilized for a procedure performed in the operating room. No interpretation was requested. Please refer to the operative report regarding findings. Please refer to PACS for patient radiation dose information. Signed: Josef Bowman Verified Date/Time: 02/16/2019 09:17:37 Reading Location: [address] Body Reading Room [place] ERCP 2019-02-16 09:17:00Interface, External Ris In - 02/16/2019 9:19 AM CSTFINAL REPORT A fluoroscopic unit was utilized for a procedure performed in the operating room. No interpretation was requested. Please refer to the operative report regarding findings. Please refer to PACS for patient radiationdose information. Signed: Josef Bowman Verified Date/Time: 02/16/2019 09:17:37 Reading Location: [facility] C013Y CT [facility]2019-02-16 07:59:00 Test Item Value Reference Range Interpretation Comments WHITE BLOOD CELL COUNT (BEAKER) 8.6 K/ L 3.5-10.5 (test code = 775) RED BLOOD CELL COUNT (BEAKER) 2.25 M/ L 4.63-6.08 L (test code = 761) HEMOGLOBIN (BEAKER) (test code = 6.8 GM/DL 13.7-17.5 L 410) HEMATOCRIT (BEAKER) (test code = 22.6 % 40.1-51.0 L 411) MEAN CORPUSCULAR VOLUME (BEAKER) 100.4 fL 79.0-92.2 H (test code = 753) MEAN CORPUSCULAR HEMOGLOBIN 30.2 pg 25.7-32.2 (BEAKER) (test code = 751) MEAN CORPUSCULAR HEMOGLOBIN CONC 30.1 GM/DL 32.3-36.5 L (BEAKER) (test code = 752) RED CELL DISTRIBUTION WIDTH 22.3 % 11.6-14.4 H (BEAKER) (test code = 412) PLATELET COUNT (BEAKER) (test 326 K/CU MM 150-450 code = 756) MEAN PLATELET VOLUME (BEAKER) 10.6 fL 9.4-12.4 (test code = 754) NUCLEATED RED BLOOD CELLS 0 /100 WBC 0-0 (BEAKER) (test code = 413) Hepatic function [id number] 05:15:00 Test Item Value Reference Range Interpretation Comments Protein, Total (test code 5.2 6.0- 8.3 gm/dL L = 2885-2) Albumin (test code = 1.8 g/dL 3.5-5 L 77049-6) Total Bilirubin (test code 2.4 mg/dL 0.2-1.2 H = 1975-2) Bilirubin, Direct (test 1.8 mg/dL 0.1-0.5 H code = 1968-7) Alkaline Phosphatase (test 823 U/L 40-150 H code = 6768-6) AST (test code = 1920-8) 27 U/L 5-34 ALT (test code = 1742-6) 23 U/L 6-55 ABAD (test code = ABAD) Chief Cruiser ID - SOTERO M Lab Interpretation (test Abnormal code = 62342-4) [facility] HospitalHEPATIC FUNCTION [id number] 05:15:00 Test Item Value Reference Range Interpretation Comments TOTAL PROTEIN (BEAKER) (test code = 5.2 gm/dL 6.0-8.3 L 770) ALBUMIN (BEAKER) (test code = 1145) 1.8 g/dL 3.5-5.0 L BILIRUBIN TOTAL (BEAKER) (test code 2.4 mg/dL 0.2-1.2 H = 377) BILIRUBIN DIRECT (BEAKER) (test 1.8 mg/dL 0.1-0.5 H code = 706) ALKALINE PHOSPHATASE (BEAKER) (test 823 U/L 40-150 H code = 346) AST (SGOT) (BEAKER) (test code = 27 U/L 5-34 353) ALT (SGPT) (BEAKER) (test code = 23 U/L 6-55 347) Chief Cruiser ID - SOTERO MCOMPREHENSIVE METABOLIC [id number] 05:14:00 Test Item Value Reference Range Interpretation Comments TOTAL PROTEIN 5.2 gm/dL 6.0-8.3 L (BEAKER) (test code = 770) ALBUMIN (BEAKER) 1.8 g/dL 3.5-5.0 L (test code = 1145) ALKALINE PHOSPHATASE 823 U/L 40-150 H (BEAKER) (test code = 346) BILIRUBIN TOTAL 2.4 mg/dL 0.2-1.2 H (BEAKER) (test code = 377) SODIUM (BEAKER) (test 135 meq/L 136-145 L code = 381) POTASSIUM (BEAKER) 3.6 meq/L 3.5-5.1 (test code = 379) CHLORIDE (BEAKER) 104 meq/L 98-107 (test code = 382) CO2 (BEAKER) (test 26 meq/L 22-29 code = 355) BLOOD UREA NITROGEN 4 mg/dL 7-21 L (BEAKER) (test code = 354) CREATININE (BEAKER) 0.53 mg/dL 0.57-1.25 L (test code = 358) GLUCOSE RANDOM 78 mg/dL 70-105 (BEAKER) (test code = 652) CALCIUM (BEAKER) 7.4 mg/dL 8.4-10.2 L (test code = 697) AST (SGOT) (BEAKER) 27 U/L 5-34 (test code = 353) ALT (SGPT) (BEAKER) 23 U/L 6-55 (test code = 347) EGFR (BEAKER) (test 183 ESTIMATE D GFR IS code = 1092) mL/min/1.73 sq NOT ACCURA TE m CREATININE CLEARANCE IN PREDICTING GLOMERULAR FILTRATION RATE . ESTIMATED GFR I S NOT APPLICABLE FOR DIALYSIS PATIEN TS. Chief Cruiser ID - SOTERO MPT/[id number] 04:41:00 Test Item Value Reference Range Interpretation Comments Protime (test code = 17.3 11.9- 14.2 H 5902-2) seconds INR (test code = 1.5 <=5.9 6301-6) PTT (test code = 50.8 22.5- 36.0 H 51186-2) seconds ABAD (test code = ABAD) Effective 07/03/2018: PT Reference Range ChangeNew: 11.9-14.2 Previous: 11.7-14.7 RECOMMENDED COUMADIN/WARFARIN INR THERAPY RANGESSTANDARD DOSE: 2.0-3.0 Includes: PROPHYLAXIS for venous thrombosis, systemic embolization; TREATMENT for venous thrombosis and/or pulmonary embolus.HIGH RISK: Target INR is 2.5-3.5 for patients wiht mechanical heart valves. Lab Interpretation Abnormal (test code = 50784-4) [facility] HospitalPT/[id number] 04:41:00 Test Item Value Reference Range Interpretation Comments PROTIME (BEAKER) (test code = 17.3 seconds 11.9-14.2 H 759) INR (BEAKER) (test code = 370) 1.5 <=5.9 PARTIAL THROMBOPLASTIN TIME 50.8 seconds 22.5-36.0 H (BEAKER) (test code = 760) Effective 07/03/2018: PT Reference Range ChangeNew: 11.9-14.2 Previous: 11.7- 14.7RECOMMENDED COUMADIN/WARFARIN INR THERAPY RANGESSTANDARD DOSE: 2.0-3.0 Includes: PROPHYLAXIS for venous thrombosis, systemic embolization; TREATMENT for venous thrombosis and/or pulmonary embolus.HIGH RISK: Target INR is2.5-3.5 for patients wiht mechanical heart valves.Prothrombin time/[id number] 04:40:00 Test Item Value Reference Range Interpretation Comments Protime (test code = 17.3 11.9- 14.2 H 5902-2) seconds INR (test code = 1.5 <=5.9 6301-6) ABAD (test code = ABAD) Effective 07/03/2018: PT Reference Range ChangeNew: 11.9-14.2 Previous: 11.7-14.7 RECOMMENDED COUMADIN/WARFARIN INR THERAPY RANGESSTANDARD DOSE: 2.0-3.0 Includes: PROPHYLAXIS for venous thrombosis, systemic embolization; TREATMENT for venous thrombosis and/or pulmonary embolus.HIGH RISK: Target INR is 2.5-3.5 for patients wiht mechanical heart valves. Lab Interpretation Abnormal (test code = 37764-3) [facility] HospitalPROTHROMBIN TIME/[id number] 04:40:00 Test Item Value Reference Range Interpretation Comments PROTIME (TAI) (test code = 17.3 seconds 11.9-14.2 H 759) INR (TAI) (test code = 370) 1.5 <=5.9 Effective 07/03/2018: PT Reference Range ChangeNew: 11.9-14.2 Previous: 11.7- 14.7RECOMMENDED COUMADIN/WARFARIN INR THERAPY RANGESSTANDARD DOSE: 2.0-3.0 Includes: PROPHYLAXIS for venous thrombosis, systemic embolization; TREATMENT for venous thrombosis and/or pulmonary embolus.HIGH RISK: Target INR is2.5-3.5 for patients wiht mechanical heart valves.CYTOLOGY [id number] 17:00:00 Test Item Value Reference Range Interpretation Comments Cytology (test code = See Separate Report 8559) [facility] [id number] 17:00:00 Test Item Value Reference Range Interpretation Comments CYTOLOGY RESULT POINTER See Separate Report (TAI) (test code = 2629) CBC with platelet count + automated [id number] 12:12:00 Test Item Value Reference Range Interpretation Comments WBC (test code = 6690-2) 12.6 3.5- 10.5 K/L H RBC (test code = 789-8) 2.54 4.63- 6.08 M/L L MCHC (test code = 786-4) 30.2 32.3- 36.5 GM/DL L Hematocrit (test code = 25.2 % 40.1-51 L 4544-3) MCV (test code = 787-2) 99.2 fL 79-92.2 H DISC ORDANT MCV RESULT COMPARED TO PREVIOUS RESULT ; CLINICAL CORREL ATION REQUIRED. MCH (test code = 785-6) 29.9 pg 25.7-32.2 RDW (test code = 788-0) 23.0 % 11.6-14.4 H Platelets (test code = 359 150- 450 K/CU MM 777-3) MPV (test code = 10.6 fL 9.4-12.4 94909-0) nRBC (test code = 413) 0 0- 0 /100 WBC % Neutros (test code = 82 % 429) % Lymphs (test code = 8 % 430) % Monos (test code = 8 % 431) % Eos (test code = 432) 1 % % Baso (test code = 437) 1 % # Neutros (test code = 10.28 1.78- 5.38 K/L H 670) # Lymphs (test code = 0.94 1.32- 3.57 K/L L 414) # Monos (test code = 1.06 0.30- 0.82 K/L H 415) # Eos (test code = 416) 0.17 0.04- 0.54 K/L # Baso (test code = 417) 0.07 0.01- 0.08 K/L Immature 1 % 0-1 Granulocytes-Relative (test code = 2801) Lab Interpretation (test Abnormal code = 34282-2) [facility] W/PLT COUNT & AUTO [id number] 12:12:00 Test Item Value Reference Range Interpretation Comments WHITE BLOOD CELL COUNT 12.6 K/ L 3.5-10.5 H (BEAKER) (test code = 775) RED BLOOD CELL COUNT 2.54 M/ L 4.63-6.08 L (BEAKER) (test code = 761) HEMOGLOBIN (BEAKER) 7.6 GM/DL 13.7-17.5 L (test code = 410) HEMATOCRIT (BEAKER) 25.2 % 40.1-51.0 L (test code = 411) MEAN CORPUSCULAR 99.2 fL 79.0-92.2 H DISCORDANT MCV VOLUME (BEAKER) (test RESULT COMPARED TO code = 753) PREVIOUS RESULT ; CLINICAL CORREL ATION REQUIRED. MEAN CORPUSCULAR 29.9 pg 25.7-32.2 HEMOGLOBIN (BEAKER) (test code = 751) MEAN CORPUSCULAR 30.2 GM/DL 32.3-36.5 L HEMOGLOBIN CONC (BEAKER) (test code = 752) RED CELL DISTRIBUTION 23.0 % 11.6-14.4 H WIDTH (BEAKER) (test code = 412) PLATELET COUNT 359 K/CU MM 150-450 (BEAKER) (test code = 756) MEAN PLATELET VOLUME 10.6 fL 9.4-12.4 (BEAKER) (test code = 754) NUCLEATED RED BLOOD 0 /100 WBC 0-0 CELLS (BEAKER) (test code = 413) NEUTROPHILS RELATIVE 82 % PERCENT (BEAKER) (test code = 429) LYMPHOCYTES RELATIVE 8 % PERCENT (BEAKER) (test code = 430) MONOCYTES RELATIVE 8 % PERCENT (BEAKER) (test code = 431) EOSINOPHILS RELATIVE 1 % PERCENT (BEAKER) (test code = 432) BASOPHILS RELATIVE 1 % PERCENT (BEAKER) (test code = 437) NEUTROPHILS ABSOLUTE 10.28 K/ L 1.78-5.38 H COUNT (BEAKER) (test code = 670) LYMPHOCYTES ABSOLUTE 0.94 K/ L 1.32-3.57 L COUNT (BEAKER) (test code = 414) MONOCYTES ABSOLUTE 1.06 K/ L 0.30-0.82 H COUNT (BEAKER) (test code = 415) EOSINOPHILS ABSOLUTE 0.17 K/ L 0.04-0.54 COUNT (BEAKER) (test code = 416) BASOPHILS ABSOLUTE 0.07 K/ L 0.01-0.08 COUNT (BEAKER) (test code = 417) IMMATURE 1 % 0-1 GRANULOCYTES-RELATIVE PERCENT (BEAKER) (test code = 2801) BASIC METABOLIC [id number] 10:22:00 Test Item Value Reference Range Interpretation Comments SODIUM (BEAKER) 133 meq/L 136-145 L (test code = 381) POTASSIUM (BEAKER) 4.0 meq/L 3.5-5.1 (test code = 379) CHLORIDE (BEAKER) 103 meq/L 98-107 (test code = 382) CO2 (BEAKER) (test 26 meq/L 22-29 code = 355) BLOOD UREA NITROGEN 5 mg/dL 7-21 L (BEAKER) (test code = 354) CREATININE (BEAKER) 0.52 mg/dL 0.57-1.25 L (test code = 358) GLUCOSE RANDOM 70 mg/dL 70-105 (BEAKER) (test code = 652) CALCIUM (BEAKER) 7.6 mg/dL 8.4-10.2 L (test code = 697) EGFR (BEAKER) (test 187 mL/min/1.73 ESTIM ATED GFR IS code = 1092) sq m NOT ACCURATE CREATININE CLEARANCE IN PREDICTING GLOMERULAR FILTRATION RATE . ESTIMATED GFR I S NOT APPLICABLE FOR DIALYSIS PATIEN TS. Chief Cruiser HELIO - [place] FSpecimen slightly ictericHEPATIC FUNCTION PANEL 2019-02-15 10:22:00 Test Item Value Reference Range Interpretation Comments TOTAL PROTEIN (BEAKER) (test code = 5.8 gm/dL 6.0-8.3 L 770) ALBUMIN (BEAKER) (test code = 1145) 1.9 g/dL 3.5-5.0 L BILIRUBIN TOTAL (BEAKER) (test code 3.6 mg/dL 0.2-1.2 H = 377) BILIRUBIN DIRECT (BEAKER) (test 2.6 mg/dL 0.1-0.5 H code = 706) ALKALINE PHOSPHATASE (BEAKER) (test 1041 U/L 40-150 H code = 346) AST (SGOT) (BEAKER) (test code = 33 U/L 5-34 353) ALT (SGPT) (BEAKER) (test code = 29 U/L 6-55 347) Chief Cruiser ID - THUAN Álvarez slightly ictericPT/[id number] 06:54:00 Test Item Value Reference Range Interpretation Comments PROTIME (BEAKER) (test code = 16.5 seconds 11.9-14.2 H 759) INR (BEAKER) (test code = 370) 1.4 <=5.9 PARTIAL THROMBOPLASTIN TIME 38.3 seconds 22.5-36.0 H (BEAKER) (test code = 760) Effective 07/03/2018: PT Reference Range ChangeNew: 11.9-14.2 Previous: 11.7- 14.7RECOMMENDED COUMADIN/WARFARIN INR THERAPY RANGESSTANDARD DOSE: 2.0-3.0 Includes: PROPHYLAXIS for venous thrombosis, systemic embolization; TREATMENT for venous thrombosis and/or pulmonary embolus.HIGH RISK: Target INR is2.5-3.5 for patients wiht mechanical heart valves.PROTHROMBIN TIME/[id number] 06:53:00 Test Item Value Reference Range Interpretation Comments PROTIME (BEAKER) (test code = 16.5 seconds 11.9-14.2 H 759) INR (BEAKER) (test code = 370) 1.4 <=5.9 Effective 07/03/2018: PT Reference Range ChangeNew: 11.9-14.2 Previous: 11.7- 14.7RECOMMENDED COUMADIN/WARFARIN INR THERAPY RANGESSTANDARD DOSE: 2.0-3.0 Includes: PROPHYLAXIS for venous thrombosis, systemic embolization; TREATMENT for venous thrombosis and/or pulmonary embolus.HIGH RISK: Target INR is2.5-3.5 for patients wiht mechanical heart valves.Manual [id number] 11:17:00 Test Item Value Reference Range Interpretation Comments % Neutros (test code = 87 % 2816) % Lymphs (test code = 3 % 2817) % Monos (test code = 6 % 2818) % Eos (test code = 2819) 3 % % Atypical Lymphs (test 1 % 0-0 H code = 2829) # Neutros (test code = 7.74 K/ul 1.78-5.38 H 2830) # Lymphs (test code = 0.27 K/ul 1.32-3.57 L 2831) # Monos (test code = 0.53 K/uL 0.3-0.82 2832) # Eos (test code = 2834) 0.27 K/uL 0.04-0.54 # Atypical Lymphs (test 0.09 K/uL 0-0 H code = 2858) Total Counted (test code 100 = 1351) Platelet Morphology (test Normal code = 486) Smudge Cells (test code = Present 1371) Polychromasia (test code 2+ moderate = 478) Hypochromia (test code = 1+ few 963) Anisocytosis (test code = 2+ moderate 961) Microcytes (test code = 2+ moderate 965) Poikilocytes (test code = 1+ few 966) Schistocytes (test code = 1+ few 765) Platelet Conc (test code Adequate = 3438) ABAD (test code = ABAD) Chief Cruiser ID - Lorenzo Carr comments: Slide comments: Lab Interpretation (test Abnormal code = 48049-7) [facility] W/PLT COUNT & AUTO [id number] 11:17:00 Test Item Value Reference Range Interpretation Comments WHITE BLOOD CELL COUNT 8.9 K/ L 3.5-10.5 (BEAKER) (test code = 775) RED BLOOD CELL COUNT 2.72 M/ L 4.63-6.08 L (BEAKER) (test code = 761) HEMOGLOBIN (BEAKER) 8.0 GM/DL 13.7-17.5 L (test code = 410) HEMATOCRIT (BEAKER) 25.9 % 40.1-51.0 L (test code = 411) MEAN CORPUSCULAR 95.2 fL 79.0-92.2 H VOLUME (BEAKER) (test code = 753) MEAN CORPUSCULAR 29.4 pg 25.7-32.2 HEMOGLOBIN (BEAKER) (test code = 751) MEAN CORPUSCULAR 30.9 GM/DL 32.3-36.5 L HEMOGLOBIN CONC (BEAKER) (test code = 752) RED CELL DISTRIBUTION Unable to report due WIDTH (BEAKER) (test to [facility] RBC code = 412) population distribution. PLATELET COUNT 336 K/CU MM 150-450 (BEAKER) (test code = 756) MEAN PLATELET VOLUME 10.4 fL 9.4-12.4 (BEAKER) (test code = 754) NUCLEATED RED BLOOD 0 /100 WBC 0-0 CELLS (BEAKER) (test code = 413) (CELLAVISION MANUAL DIFF)2019-02-14 11:17:00 Test Item Value Reference Range Interpretation Comments NEUTROPHILS - REL 87 % (CELLAVISION)(BEAKER) (test code = 2816) LYMPHOCYTES - REL 3 % (CELLAVISION)(BEAKER) (test code = 2817) MONOCYTES - REL 6 % (CELLAVISION)(BEAKER) (test code = 2818) EOSINOPHILS - REL 3 % (CELLAVISION)(BEAKER) (test code = 2819) ATYPICAL LYMPHOCYTES - REL 1 % 0-0 H (CELLAVISION)(BEAKER) (test code = 2829) NEUTROPHILS - ABS 7.74 K/ul 1.78-5.38 H (CELLAVISION)(BEAKER) (test code = 2830) LYMPHOCYTES - ABS 0.27 K/ul 1.32-3.57 L (CELLAVISION)(BEAKER) (test code = 2831) MONOCYTES - ABS 0.53 K/uL 0.30-0.82 (CELLAVISION)(BEAKER) (test code = 2832) EOSINOPHILS - ABS 0.27 K/uL 0.04-0.54 (CELLAVISION)(BEAKER) (test code = 2834) ATYPICAL LYMPHOCYTES - ABS 0.09 K/uL 0.00-0.00 H (CELLAVISION)(BEAKER) (test code = 2858) TOTAL COUNTED (BEAKER) (test code 100 = 1351) PLT MORPHOLOGY (BEAKER) (test Normal code = 486) SMUDGE CELLS (BEAKER) (test code Present = 1371) POLYCHROMATOPHILLIC RBCS(BEAKER) 2+ moderate (test code = 478) HYPOCHROMIA (BEAKER) (test code = 1+ few 963) ANISOCYTOSIS (BEAKER) (test code 2+ moderate = 961) MICROCYTES (BEAKER) (test code = 2+ moderate 965) POIKILOCYTES (BEAKER) (test code 1+ few = 966) SCHISTOCYTES (BEAKER) (test code 1+ few = 765) PLATELET CONCENTRATION Adequate (CELLAVISION)(BEAKER) (test code = 3438) Chief Cruiser ID - Lorenzo Carr comments: Slide comments:HEPATIC FUNCTION PANEL 2019-02-14 10:09:00 Test Item Value Reference Range Interpretation Comments TOTAL PROTEIN (BEAKER) (test code = 5.8 gm/dL 6.0-8.3 L 770) ALBUMIN (BEAKER) (test code = 1145) 1.9 g/dL 3.5-5.0 L BILIRUBIN TOTAL (BEAKER) (test code 4.1 mg/dL 0.2-1.2 H = 377) BILIRUBIN DIRECT (BEAKER) (test 3.3 mg/dL 0.1-0.5 H code = 706) ALKALINE PHOSPHATASE (BEAKER) (test 1248 U/L 40-150 H code = 346) AST (SGOT) (BEAKER) (test code = 65 U/L 5-34 H 353) ALT (SGPT) (BEAKER) (test code = 40 U/L 6-55 347) Chief Cruiser ID - NTPSpecimen slightly ictericBASIC METABOLIC [id number] 10:09:00 Test Item Value Reference Range Interpretation Comments SODIUM (BEAKER) 134 meq/L 136-145 L (test code = 381) POTASSIUM (BEAKER) 3.6 meq/L 3.5-5.1 (test code = 379) CHLORIDE (BEAKER) 104 meq/L 98-107 (test code = 382) CO2 (BEAKER) (test 24 meq/L code = 355) BLOOD UREA NITROGEN 7 mg/dL 7-21 (BEAKER) (test code = 354) CREATININE (BEAKER) 0.54 mg/dL 0.57-1.25 L (test code = 358) GLUCOSE RANDOM 97 mg/dL 70-105 (BEAKER) (test code = 652) CALCIUM (BEAKER) 7.5 mg/dL 8.4-10.2 L (test code = 697) EGFR (BEAKER) (test 179 mL/min/1.73 ESTIM ATED GFR IS code = 1092) sq m NOT ACCURATE CREATININE CLEARANCE IN PREDICTING GLOMERULAR FILTRATION RATE . ESTIMATED GFR I S NOT APPLICABLE FOR DIALYSIS PATIEN TS. Chief Cruiser ID - NTPSpecimen slightly ictericPT/[id number] 05:20:00 Test Item Value Reference Range Interpretation Comments PROTIME (BEAKER) (test code = 19.1 seconds 11.9-14.2 H 759) INR (BEAKER) (test code = 370) 1.7 <=5.9 PARTIAL THROMBOPLASTIN TIME 51.0 seconds 22.5-36.0 H (BEAKER) (test code = 760) Effective 07/03/2018: PT Reference Range ChangeNew: 11.9-14.2 Previous: 11.7- 14.7RECOMMENDED COUMADIN/WARFARIN INR THERAPY RANGESSTANDARD DOSE: 2.0-3.0 Includes: PROPHYLAXIS for venous thrombosis, systemic embolization; TREATMENT for venous thrombosis and/or pulmonary embolus.HIGH RISK: Target INR is2.5-3.5 for patients wiht mechanical heart valves.PROTHROMBIN TIME/[id number] 05:19:00 Test Item Value Reference Range Interpretation Comments PROTIME (BEAKER) (test code = 19.1 seconds 11.9-14.2 H 759) INR (BEAKER) (test code = 370) 1.7 <=5.9 Effective 07/03/2018: PT Reference Range ChangeNew: 11.9-14.2 Previous: 11.7- 14.7RECOMMENDED COUMADIN/WARFARIN INR THERAPY RANGESSTANDARD DOSE: 2.0-3.0 Includes: PROPHYLAXIS for venous thrombosis, systemic embolization; TREATMENT for venous thrombosis and/or pulmonary embolus.HIGH RISK: Target INR is2.5-3.5 for patients wiht mechanical heart valves.WOUND CULTURE + GRAM [id number] 13:08:00 Test Item Value Reference Interpretation Comments Range CULTURE (BEAKER) STAPHYLOCOCCUS A 4+ Staphy lococcus (test code = 1095) AUREUS aureus Clindamycin (test S code = 10) Erythromycin (test S code = 4) Linezolid (test code S = 40) Nitrofurantoin (test S code = 23) Oxacillin (test code S = 14) Rifampin (test code = S 43) Tetracycline (test S code = 2) Trimethoprim + S Sulfamethoxazole (test code = 47) Vancomycin (test code S = 13) GRAM STAIN RESULT 4+ White blood (BEAKER) (test code = cells seen 1123) GRAM STAIN RESULT 1+ gram positive (BEAKER) (test code = cocci in pairs [id number]) 4+ Skin floraCOMPREHENSIVE METABOLIC [id number] 04:14:00 Test Item Value Reference Range Interpretation Comments SODIUM (test code = NA) 142 mmol/L 134-147 N POTASSIUM (test code = 3.8 mmol/L 3.4-5.0 N K) CHLORIDE (test code = 108 mmol/L 100-108 N CL) CARBON DIOXIDE (test 26 mmol/L 21-32 N code = CO2) ANION GAP (test code = 8.0 GAP calc 4.0-15.0 N GAP) GLUCOSE (test code = 76 MG/DL 70-110 N GLU) BLOOD UREA NITROGEN 4 MG/DL 7-18 L (test code = BUN) GLOMERULAR FILTRATION >=60 max estimate >60 RATE (test code = GFR) estGFR CREATININE (test code = 0.5 MG/DL 0.8-1.3 L CREAT) TOTAL PROTEIN (test code 5.8 G/DL 6.4-8.2 L = PROT) ALBUMIN (test code = 1.9 G/DL 3.4-5.0 L ALB) GLOBULIN (test code = 3.9 GM/dL GLOB) ALBUMIN/GLOBULIN RATIO 0.5 RATIO 1.2-2.2 L (test code = A/G) CALCIUM (test code = CA) 8.1 MG/DL 8.5-10.1 L BILIRUBIN TOTAL (test 0.40 MG/DL 0.2-1.2 N code = BILT) SGOT/AST (test code = 16 Unit/L 15-37 N AST) SGPT/ALT (test code = 11 Unit/L 12-78 L ALT) ALKALINE PHOSPHATASE 123 Unit/L 50-136 N TOTAL (test code = ALKP) COMPREHENSIVE METABOLIC [id number] 04:07:00 Test Item Value Reference Range Interpretation Comments SODIUM (test code = NA) 142 mmol/L 134-147 N POTASSIUM (test code = K) 3.8 mmol/L 3.4-5.0 N CHLORIDE (test code = CL) 108 mmol/L 100-108 N CARBON DIOXIDE (test code = CO2) 26 mmol/L 21-32 N ANION GAP (test code = GAP) 8.0 GAP calc 4.0-15.0 N GLUCOSE (test code = GLU) 76 MG/DL 70-110 N BLOOD UREA NITROGEN (test code = 4 MG/DL 7-18 L BUN) GLOMERULAR FILTRATION RATE (test estGFR >60 code = GFR) CREATININE (test code = CREAT) MG/DL 0.8-1.3 TOTAL PROTEIN (test code = PROT) G/DL 6.4-8.2 ALBUMIN (test code = ALB) G/DL 3.4-5.0 GLOBULIN (test code = GLOB) GM/dL ALBUMIN/GLOBULIN RATIO (test RATIO 1.2-2.2 code = A/G) CALCIUM (test code = CA) 8.1 MG/DL 8.5-10.1 L BILIRUBIN TOTAL (test code = MG/DL 0.2-1.2 BILT) SGOT/AST (test code = AST) Unit/L 15-37 SGPT/ALT (test code = ALT) Unit/L 12-78 ALKALINE PHOSPHATASE TOTAL (test Unit/L 50-136 code = ALKP) CBC W/AUTO [id number] 04:05:00 Test Item Value Reference Range Interpretation Comments WHITE BLOOD CELL (test code = 6.1 K/mm3 3.5-11.0 N WBC) RED BLOOD CELL (test code = RBC) 3.01 M/mm3 4.70-6.10 L HEMOGLOBIN (test code = HGB) 8.6 G/DL 12.3-15.9 L HEMATOCRIT (test code = HCT) 28.2 % 35.8-46.7 L MEAN CELL VOLUME (test code = 93.7 Fl 86.3-98.9 N MCV) MEAN CELL HGB (test code = MCH) 28.6 pg 28.9-34.4 L MEAN CELL HGB CONCETRATION (test 30.5 G/DL 32.1-34.5 L code = MCHC) RED CELL DISTRIBUTION WIDTH (test 17.3 SD 11.5-14.5 H code = RDW) PLATELET COUNT (test code = PLT) 205.0 K/mm3 150-450 N MEAN PLATELET VOLUME (test code = 10.20 fL 7.0-9.6 H MPV) NEUTROPHIL % (test code = NT%) 69.8 % 40-76 N LYMPHOCYTE % (test code = LY%) 20.2 % 20.5-51.1 L MONOCYTE % (test code = MO%) 7.4 % 1.7-9.3 N EOSINOPHIL % (test code = EO%) 2.3 % 0.0-6.0 N BASOPHIL % (test code = BA%) 0.3 % 0.0-2.0 N NEUTROPHIL # (test code = NT#) 4.22 K/mm3 1.8-7.6 N LYMPHOCYTE # (test code = LY#) 1.2 K/mm3 0.6-3.0 N MONOCYTE # (test code = MO#) 0.5 K/mm3 0.2-1.5 N EOSINOPHIL # (test code = EO#) 0.1 K/mm3 0.0-0.4 N BASOPHIL # (test code = BA#) 0.0 K/mm3 0.0-0.2 N MANUAL DIFF REQUIRED (test code = NO DIFF/SCN CRITERIA MDIFF) CBC W/AUTO [id number] 18:44:00 Test Item Value Reference Range Interpretation Comments WHITE BLOOD CELL (test code = 5.7 K/mm3 3.5-11.0 N WBC) RED BLOOD CELL (test code = RBC) 3.03 M/mm3 4.70-6.10 L HEMOGLOBIN (test code = HGB) 8.7 G/DL 12.3-15.9 L HEMATOCRIT (test code = HCT) 28.4 % 35.8-46.7 L MEAN CELL VOLUME (test code = 93.7 Fl 86.3-98.9 N MCV) MEAN CELL HGB (test code = MCH) 28.7 pg 28.9-34.4 L MEAN CELL HGB CONCETRATION (test 30.6 G/DL 32.1-34.5 L code = MCHC) RED CELL DISTRIBUTION WIDTH (test 17.4 SD 11.5-14.5 H code = RDW) PLATELET COUNT (test code = PLT) 202.0 K/mm3 150-450 N MEAN PLATELET VOLUME (test code = 9.90 fL 7.0-9.6 H MPV) NEUTROPHIL % (test code = NT%) 71.4 % 40-76 N LYMPHOCYTE % (test code = LY%) 18.7 % 20.5-51.1 L MONOCYTE % (test code = MO%) 7.3 % 1.7-9.3 N EOSINOPHIL % (test code = EO%) 2.3 % 0.0-6.0 N BASOPHIL % (test code = BA%) 0.3 % 0.0-2.0 N NEUTROPHIL # (test code = NT#) 4.08 K/mm3 1.8-7.6 N LYMPHOCYTE # (test code = LY#) 1.1 K/mm3 0.6-3.0 N MONOCYTE # (test code = MO#) 0.4 K/mm3 0.2-1.5 N EOSINOPHIL # (test code = EO#) 0.1 K/mm3 0.0-0.4 N BASOPHIL # (test code = BA#) 0.0 K/mm3 0.0-0.2 N MANUAL DIFF REQUIRED (test code = NO DIFF/SCN CRITERIA MDIFF) BASIC METABOLIC [id number] 07:26:00 Test Item Value Reference Range Interpretation Comments SODIUM (test code = NA) 143 mmol/L 134-147 N POTASSIUM (test code = 3.8 mmol/L 3.4-5.0 N K) CHLORIDE (test code = 110 mmol/L 100-108 H CL) CARBON DIOXIDE (test 26 mmol/L 21-32 N code = CO2) ANION GAP (test code = 7.0 GAP calc 4.0-15.0 N GAP) GLUCOSE (test code = 86 MG/DL 70-110 N GLU) BLOOD UREA NITROGEN 5 MG/DL 7-18 L (test code = BUN) GLOMERULAR FILTRATION >=60 max estimate >60 RATE (test code = GFR) estGFR CREATININE (test code = 0.5 MG/DL 0.8-1.3 L CREAT) CALCIUM (test code = CA) 7.8 MG/DL 8.5-10.1 L CBC W/AUTO [id number] 07:19:00 Test Item Value Reference Range Interpretation Comments WHITE BLOOD CELL (test code = 7.1 K/mm3 3.5-11.0 N WBC) RED BLOOD CELL (test code = RBC) 3.02 M/mm3 4.70-6.10 L HEMOGLOBIN (test code = HGB) 8.5 G/DL 12.3-15.9 L HEMATOCRIT (test code = HCT) 28.2 % 35.8-46.7 L MEAN CELL VOLUME (test code = 93.4 Fl 86.3-98.9 N MCV) MEAN CELL HGB (test code = MCH) 28.1 pg 28.9-34.4 L MEAN CELL HGB CONCETRATION (test 30.1 G/DL 32.1-34.5 L code = MCHC) RED CELL DISTRIBUTION WIDTH (test 17.5 SD 11.5-14.5 H code = RDW) PLATELET COUNT (test code = PLT) 218.0 K/mm3 150-450 N MEAN PLATELET VOLUME (test code = 9.80 fL 7.0-9.6 H MPV) NEUTROPHIL % (test code = NT%) 74.2 % 40-76 N LYMPHOCYTE % (test code = LY%) 16.4 % 20.5-51.1 L MONOCYTE % (test code = MO%) 7.1 % 1.7-9.3 N EOSINOPHIL % (test code = EO%) 2.0 % 0.0-6.0 N BASOPHIL % (test code = BA%) 0.3 % 0.0-2.0 N NEUTROPHIL # (test code = NT#) 5.30 K/mm3 1.8-7.6 N LYMPHOCYTE # (test code = LY#) 1.2 K/mm3 0.6-3.0 N MONOCYTE # (test code = MO#) 0.5 K/mm3 0.2-1.5 N EOSINOPHIL # (test code = EO#) 0.1 K/mm3 0.0-0.4 N BASOPHIL # (test code = BA#) 0.0 K/mm3 0.0-0.2 N MANUAL DIFF REQUIRED (test code = NO DIFF/SCN CRITERIA MDIFF) - CT ABD PELVIS [id number] 20:03:00 Name: FAVIOLA [place] : 1990 Age/S: 28 / M [address] Unit #: [id number] Loc: [place] [address] Phys: Natalie Bahena MD Acct: [id number] Dis Date: Status: ADM IN PHONE #: [phone] Exam Date: 09/21/20181912 FAX #: Reason: hx of pa ncreatitis, CBD stent, abd pain, melena EXAMS: CPT: [id number] CT ABD PELVIS W/CONT 80608 Dictation location: [facility]. CT ABDOMEN AND PELVIS WITH IV CONTRAST HISTORY: hx of pancreatitis, CBD stent, abd pain, melena COMPARISON: CT abdomen and pelvis 09/11/18. TECHNIQUE: Axial CT images of the abdomen and pelvis were obtained with coronal and/or sagittal reformatted views. Automated exposure control, iterative reconstruction technique, and/or adjustment of mA and/or kV according to patient's size was utilized for radiation dose reduction. IV CONTRAST: 100 ml Isovue-300. PO CONTRAST: None. FINDINGS: Partially imaged left pleural effusion, small to moderate with adjacent atelectasis. The heart size is normal. The gallbladder is distended without surrounding inflammatory changes. Diffuse low attenuation is seen throughout the liver suggestive of steat osis. Spleen and adrenal glands are unremarkable. Again [...] PAGE 1 Signed Report (CONTINUED) Name: FAVIOLA [place] : 1990 Age/S: 28 / M [address] Unit #: [id number] Loc: [place] [address] Phys: Natalie Bahena MD Acct: [id number] Dis Date: Status: ADM IN PHONE #: [phone] Exam Date: 09/21/2018 1913 FAX #: Reason: hx of pancreatitis, CBD stent, abd pain, melena EXAMS: CPT: [id number] CT ABD PELVIS W/CONT 73282 <Continued> Interval mild thickening involving the sigmoid [...] Hooks M.D. CC: Natalie Bahena MD Technologist:Yvette Lugo, RT(R)(CT) CTDI: DLP: Trnscb Date/Time: 09/21/2018 (2002) [id number] Orig Print D/T: S: 09/21/2018 (2005) PAGE 2 Signed ReportUA RFLX MICR CULT IF [id number] 19:45:00 Test Item Value Reference Range Interpretation Comments UA COLOR (test code = YELLOW discript YEL/STRAW COLU) UA APPEARANCE (test code CLEAR discript CLEAR = APPU) UA GLUCOSE DIPSTICK (test NEGATIVE mg/dL NEG code = DGLUU) UA BILIRUBIN DIPSTICK NEGATIVE mg/dL NEG (test code = BILU) UA KETONE DIPSTICK (test 1+ mg/dL NEG code = KETU) UA SPECIFIC GRAVITY (test 1.020 SG 1.005-1.030 code = SGU) UA BLOOD DIPSTICK (test NEGATIVE mg/DL NEG code = DYLAN) UA PH DIPSTICK (test code 6.0 pH UNITS 5.0-7.0 = TAVIA) UA PROTEIN DIPSTICK (test TRACE mg/dL NEG A code = PROU) UA UROBILINIOGEN DIPSTICK 0.2 mg/dL <2.0 (test code = URO) UA NITRITE DIPSTICK (test NEGATIVE SCREEN NEG code = ZACHARIAH) UA LEUKOCYTE ESTERASE NEGATIVE Leuk/mcL NEGATIVE DIPSTICK (test code = LEUU) UA WBC (test code = WBCU) 1-3 #WBC/HPF 0-3 UA RBC (test code = RBCU) 1-3 #RBC/HPF 0-3 UA BACTERIA (test code = NONE SEEN /HPF NONE-TRACE BACU) UA SQUAMOUS CELLS (test NONE SEEN /HPF NONE code = SQU) UA CULTURE NEEDED? (test NO, WBC<10 Criteria Culture CHK code = UACULT) SOURCE OF URINE: CLEAN CATCHIndication for culture: Suprapubic PainUA RFLX MICR CULT IF [id number] 19:37:00 Test Item Value Reference Range Interpretation Comments UA COLOR (test code = COLU) YELLOW discript YEL/STRAW UA APPEARANCE (test code = CLEAR discript CLEAR APPU) UA GLUCOSE DIPSTICK (test NEGATIVE mg/dL NEG code = DGLUU) UA BILIRUBIN DIPSTICK (test NEGATIVE mg/dL NEG code = BILU) UA KETONE DIPSTICK (test 1+ mg/dL NEG code = KETU) UA SPECIFIC GRAVITY (test 1.020 SG 1.005-1.030 code = SGU) UA BLOOD DIPSTICK (test NEGATIVE mg/DL NEG code = DYLAN) UA PH DIPSTICK (test code = 6.0 pH UNITS 5.0-7.0 TAVIA) UA PROTEIN DIPSTICK (test TRACE mg/dL NEG A code = PROU) UA UROBILINIOGEN DIPSTICK 0.2 mg/dL <2.0 (test code = URO) UA NITRITE DIPSTICK (test NEGATIVE SCREEN NEG code = ZACHARIAH) UA LEUKOCYTE ESTERASE NEGATIVE Leuk/mcL NEGATIVE DIPSTICK (test code = LEUU) UA CULTURE NEEDED? (test Criteria Culture CHK code = UACULT) SOURCE OF URINE: CLEAN CATCHIndication for culture: Suprapubic PainLACTIC ACID [id number] 19:14:00 Test Item Value Reference Range Interpretation Comments LACTIC ACID POC (test code = 0.57 MMOL/L 0.90-1.70 L LACTP) BASIC METABOLIC [id number] 18:25:00 Test Item Value Reference Range Interpretation Comments SODIUM (test code = NA) 140 mmol/L 134-147 N POTASSIUM (test code = 4.0 mmol/L 3.4-5.0 N K) CHLORIDE (test code = 106 mmol/L 100-108 N CL) CARBON DIOXIDE (test 24 mmol/L 21-32 N code = CO2) ANION GAP (test code = 10.0 GAP calc 4.0-15.0 N GAP) GLUCOSE (test code = 99 MG/DL 70-110 N GLU) BLOOD UREA NITROGEN 8 MG/DL 7-18 N (test code = BUN) GLOMERULAR FILTRATION >=60 max estimate >60 RATE (test code = GFR) estGFR CREATININE (test code = 0.6 MG/DL 0.8-1.3 L CREAT) CALCIUM (test code = CA) 8.6 MG/DL 8.5-10.1 N HEPATIC FUNCTION [id number] 18:25:00 Test Item Value Reference Range Interpretation Comments TOTAL PROTEIN (test code = PROT) 7.1 G/DL 6.4-8.2 N ALBUMIN (test code = ALB) 2.4 G/DL 3.4-5.0 L BILIRUBIN TOTAL (test code = BILT) 0.60 MG/DL 0.2-1.2 N BILIRUBIN DIRECT (test code = 0.20 MG/DL 0.00-0.30 N BILD) BILIRUBIN INDIRECT (test code = 0.40 MG/DL 0.2-1.2 N BILIND) SGOT/AST (test code = AST) 20 Unit/L 15-37 N SGPT/ALT (test code = ALT) 13 Unit/L 12-78 N ALKALINE PHOSPHATASE TOTAL (test 160 Unit/L 50-136 H code = ALKP) [id number] 18:25:00 Test Item Value Reference Range Interpretation Comments LIPASE (test code = LIP) 164 Unit/L 114-286 N BASIC METABOLIC [id number] 18:22:00 Test Item Value Reference Range Interpretation Comments SODIUM (test code = NA) 140 mmol/L 134-147 N POTASSIUM (test code = 4.0 mmol/L 3.4-5.0 N K) CHLORIDE (test code = 106 mmol/L 100-108 N CL) CARBON DIOXIDE (test 24 mmol/L 21-32 N code = CO2) ANION GAP (test code = 10.0 GAP calc 4.0-15.0 N GAP) GLUCOSE (test code = 99 MG/DL 70-110 N GLU) BLOOD UREA NITROGEN 8 MG/DL 7-18 N (test code = BUN) GLOMERULAR FILTRATION >=60 max estimate >60 RATE (test code = GFR) estGFR CREATININE (test code = 0.6 MG/DL 0.8-1.3 L CREAT) CALCIUM (test code = CA) 8.6 MG/DL 8.5-10.1 N HEPATIC FUNCTION [id number] 18:22:00 Test Item Value Reference Range Interpretation Comments TOTAL PROTEIN (test code = PROT) G/DL 6.4-8.2 ALBUMIN (test code = ALB) 2.4 G/DL 3.4-5.0 L BILIRUBIN TOTAL (test code = BILT) MG/DL 0.2-1.2 BILIRUBIN DIRECT (test code = 0.20 MG/DL 0.00-0.30 N BILD) BILIRUBIN INDIRECT (test code = MG/DL 0.2-1.2 BILIND) SGOT/AST (test code = AST) 20 Unit/L 15-37 N SGPT/ALT (test code = ALT) 13 Unit/L 12-78 N ALKALINE PHOSPHATASE TOTAL (test Unit/L 50-136 code = ALKP) [id number] 18:22:00 Test Item Value Reference Range Interpretation Comments LIPASE (test code = LIP) 164 Unit/L 114-286 N PROTHROMBIN [id number] 18:17:00 Test Item Value Reference Range Interpretation Comments PT PATIENT (test code = PTP) 15.7 SECONDS 9.3-12.9 H INTERNATIONAL NORMAL RATIO 1.36 INR Unit 0.8-1.2 H (test code = INR) THROMBOPLASTIN TIME [id number] 18:17:00 Test Item Value Reference Range Interpretation Comments THROMBOPLASTIN TIME PARTIAL 39.7 SECONDS 26-35 H (test code = PTT) CBC W/O [id number] 18:08:00 Test Item Value Reference Range Interpretation Comments WHITE BLOOD CELL (test code = 8.1 K/mm3 3.5-11.0 N WBC) RED BLOOD CELL (test code = RBC) 3.64 M/mm3 4.70-6.10 L HEMOGLOBIN (test code = HGB) 10.3 G/DL 12.3-15.9 L HEMATOCRIT (test code = HCT) 33.5 % 35.8-46.7 L MEAN CELL VOLUME (test code = 92.0 Fl 86.3-98.9 N MCV) MEAN CELL HGB (test code = MCH) 28.3 pg 28.9-34.4 L MEAN CELL HGB CONCETRATION (test 30.7 G/DL 32.1-34.5 L code = MCHC) RED CELL DISTRIBUTION WIDTH (test 17.7 SD 11.5-14.5 H code = RDW) PLATELET COUNT (test code = PLT) 330.0 K/mm3 150-450 N MEAN PLATELET VOLUME (test code = 10.50 fL 7.0-9.6 H MPV) - CT ABD PELVIS [id number] 19:34:00 Name: FAVIOLA [place] [facility] : 1990 Age/S: 28 / M [address] Unit #: [id number] Loc: [place] [address] Phys: Pola Brush MD Acct: [id number] Dis Date: Status: REG ER PHONE #: [phone] Exam Date: 09/11/2018 1841 FAX #: Reason: abdominal pain EXAMS: CPT: [id number] CT ABD PELVIS W/CONT 90506 EXAM: CT ABDOMEN AND PELVIS WITH IV CONTRAST DICTATION LOCATION: [facility] HISTORY: Male, 28 years of age with abdominal pain TECHNIQUE: Contrast: Nonionic IV contrast was given. No GI contrast was given. Portal venous phase: Abdomen and pelvis Delayed phase: None Reconstructions: Coronal and sagittal One or more of the following dose reduction techniques were used: Automated exposure control; adjustment of the mA and/or kV acc ording to the patient size; and/or use of [...] pseudocysts are identified. Spleen: The spleen is overal l normal in size without focal mass. The [...] 1 Signed Report (CONTINUED) [facility] 1990 Age/S: 28 / M [id number] Unit #: [id number] Loc: [place] [address] Phys: Pola Brush MD Acct: [id number] Dis Date: Status: REG ER PHONE #: [phone] Exam Date: 09/11/2018 1845 FAX #: Reason: abdominal pain EXAMS: CPT: [id number] CT ABD PELVIS W/CONT 83745 <Continued> are unremarkable. Gastrointestinal: No bowel obstruction or perienteric inflammation. The appendix is normal. Vascular: No aortic aneurysm or dissection. Lymphatic s: No enlarged lymph nodes by CT size criteria. Bones/Soft Tissues: No acute osseous findings. No ventral hernias. Peritoneum/Other: No free intraperitoneal air. Small amount of free fluid seen in the pelvic cul-de-sac. IMPRESSION: 1. Finding s of subacute pancreatitis with double-J stent cyst-gastrostomy draining a small 2 cm pseudocyst posterior [...] Yvonne Weber MD CC: Pola Brush MD Technologist:Ray Richerson, RT(R)(CT) CTDI: DLP: Trnscb Date/Time: 09/11/2018 (1933) JantehW Orig Print D/T: S: 09/11/2018 (1936) PAGE 2 Signed ReportUA RFLX MICR CULT IF [id number] 19:30:00 Test Item Value Reference Range Interpretation Comments UA COLOR (test code = COLU) YELLOW discript YEL/STRAW UA APPEARANCE (test code = CLEAR discript CLEAR APPU) UA GLUCOSE DIPSTICK (test NEGATIVE mg/dL NEG code = DGLUU) UA BILIRUBIN DIPSTICK (test NEGATIVE mg/dL NEG code = BILU) UA KETONE DIPSTICK (test NEGATIVE mg/dL NEG code = KETU) UA SPECIFIC GRAVITY (test <=1.005 SG 1.005-1.030 code = SGU) UA BLOOD DIPSTICK (test NEGATIVE mg/DL NEG code = DYLAN) UA PH DIPSTICK (test code = 6.5 pH UNITS 5.0-7.0 TAVIA) UA PROTEIN DIPSTICK (test NEGATIVE mg/dL NEG code = PROU) UA UROBILINIOGEN DIPSTICK 0.2 mg/dL <2.0 (test code = URO) UA NITRITE DIPSTICK (test NEGATIVE SCREEN NEG code = ZACHARIAH) UA LEUKOCYTE ESTERASE NEGATIVE Leuk/mcL NEGATIVE DIPSTICK (test code = LEUU) UA CULTURE NEEDED? (test Criteria Culture CHK code = UACULT) SOURCE OF URINE: CLEAN CATCHIndication for culture: Dysuria/FrequencyUA RFLX MICR CULT IF [id number] 19:30:00 Test Item Value Reference Range Interpretation Comments UA COLOR (test code = YELLOW discript YEL/STRAW COLU) UA APPEARANCE (test code CLEAR discript CLEAR = APPU) UA GLUCOSE DIPSTICK (test NEGATIVE mg/dL NEG code = DGLUU) UA BILIRUBIN DIPSTICK NEGATIVE mg/dL NEG (test code = BILU) UA KETONE DIPSTICK (test NEGATIVE mg/dL NEG code = KETU) UA SPECIFIC GRAVITY (test <=1.005 SG 1.005-1.030 code = SGU) UA BLOOD DIPSTICK (test NEGATIVE mg/DL NEG code = DYLAN) UA PH DIPSTICK (test code 6.5 pH UNITS 5.0-7.0 = TAVIA) UA PROTEIN DIPSTICK (test NEGATIVE mg/dL NEG code = PROU) UA UROBILINIOGEN DIPSTICK 0.2 mg/dL <2.0 (test code = URO) UA NITRITE DIPSTICK (test NEGATIVE SCREEN NEG code = ZACHARIAH) UA LEUKOCYTE ESTERASE NEGATIVE Leuk/mcL NEGATIVE DIPSTICK (test code = LEUU) UA CULTURE NEEDED? (test NO, WBC<10 Criteria Culture CHK code = UACULT) SOURCE OF URINE: CLEAN CATCHIndication for culture: Dysuria/FrequencyBASIC METABOLIC [id number] 18:14:00 Test Item Value Reference Range Interpretation Comments SODIUM (test code = NA) 139 mmol/L 134-147 N POTASSIUM (test code = 3.9 mmol/L 3.4-5.0 N K) CHLORIDE (test code = 103 mmol/L 100-108 N CL) CARBON DIOXIDE (test 27 mmol/L 21-32 N code = CO2) ANION GAP (test code = 9.0 GAP calc 4.0-15.0 N GAP) GLUCOSE (test code = 91 MG/DL 70-110 N GLU) BLOOD UREA NITROGEN 6 MG/DL 7-18 L (test code = BUN) GLOMERULAR FILTRATION >=60 max estimate >60 RATE (test code = GFR) estGFR CREATININE (test code = 0.6 MG/DL 0.8-1.3 L CREAT) CALCIUM (test code = CA) 8.4 MG/DL 8.5-10.1 L HEPATIC FUNCTION [id number] 18:14:00 Test Item Value Reference Range Interpretation Comments TOTAL PROTEIN (test code = PROT) 7.6 G/DL 6.4-8.2 N ALBUMIN (test code = ALB) 2.3 G/DL 3.4-5.0 L BILIRUBIN TOTAL (test code = BILT) 0.30 MG/DL 0.2-1.2 N BILIRUBIN DIRECT (test code = 0.20 MG/DL 0.00-0.30 N BILD) BILIRUBIN INDIRECT (test code = 0.10 MG/DL 0.2-1.2 L BILIND) SGOT/AST (test code = AST) 19 Unit/L 15-37 N SGPT/ALT (test code = ALT) 11 Unit/L 12-78 L ALKALINE PHOSPHATASE TOTAL (test 168 Unit/L 50-136 H code = ALKP) [id number] 18:14:00 Test Item Value Reference Range Interpretation Comments LIPASE (test code = LIP) 260 Unit/L 114-286 N BASIC METABOLIC [id number] 18:06:00 Test Item Value Reference Range Interpretation Comments SODIUM (test code = NA) 139 mmol/L 134-147 N POTASSIUM (test code = K) 3.9 mmol/L 3.4-5.0 N CHLORIDE (test code = CL) 103 mmol/L 100-108 N CARBON DIOXIDE (test code = CO2) 27 mmol/L 21-32 N ANION GAP (test code = GAP) 9.0 GAP calc 4.0-15.0 N GLUCOSE (test code = GLU) 91 MG/DL 70-110 N BLOOD UREA NITROGEN (test code = 6 MG/DL 7-18 L BUN) GLOMERULAR FILTRATION RATE (test estGFR >60 code = GFR) CREATININE (test code = CREAT) MG/DL 0.8-1.3 CALCIUM (test code = CA) 8.4 MG/DL 8.5-10.1 L HEPATIC FUNCTION [id number] 18:06:00 Test Item Value Reference Range Interpretation Comments TOTAL PROTEIN (test code = PROT) G/DL 6.4-8.2 ALBUMIN (test code = ALB) G/DL 3.4-5.0 BILIRUBIN TOTAL (test code = BILT) MG/DL 0.2-1.2 BILIRUBIN DIRECT (test code = BILD) MG/DL 0.00-0.30 BILIRUBIN INDIRECT (test code = MG/DL 0.2-1.2 BILIND) SGOT/AST (test code = AST) Unit/L 15-37 SGPT/ALT (test code = ALT) Unit/L 12-78 ALKALINE PHOSPHATASE TOTAL (test code Unit/L 50-136 = ALKP) [id number] 18:06:00 Test Item Value Reference Range Interpretation Comments LIPASE (test code = LIP) Unit/L 114-286 CBC W/AUTO [id number] 18:02:00 Test Item Value Reference Range Interpretation Comments WHITE BLOOD CELL (test code = 8.2 K/mm3 3.5-11.0 N WBC) RED BLOOD CELL (test code = RBC) 3.42 M/mm3 4.70-6.10 L HEMOGLOBIN (test code = HGB) 9.8 G/DL 12.3-15.9 L HEMATOCRIT (test code = HCT) 31.9 % 35.8-46.7 L MEAN CELL VOLUME (test code = 93.3 Fl 86.3-98.9 N MCV) MEAN CELL HGB (test code = MCH) 28.7 pg 28.9-34.4 L MEAN CELL HGB CONCETRATION (test 30.7 G/DL 32.1-34.5 L code = MCHC) RED CELL DISTRIBUTION WIDTH (test 17.3 SD 11.5-14.5 H code = RDW) PLATELET COUNT (test code = PLT) 356.0 K/mm3 150-450 N MEAN PLATELET VOLUME (test code = 9.50 fL 7.0-9.6 N MPV) NEUTROPHIL % (test code = NT%) 71.5 % 40-76 N LYMPHOCYTE % (test code = LY%) 16.7 % 20.5-51.1 L MONOCYTE % (test code = MO%) 9.3 % 1.7-9.3 N EOSINOPHIL % (test code = EO%) 2.3 % 0.0-6.0 N BASOPHIL % (test code = BA%) 0.2 % 0.0-2.0 N NEUTROPHIL # (test code = NT#) 5.86 K/mm3 1.8-7.6 N LYMPHOCYTE # (test code = LY#) 1.4 K/mm3 0.6-3.0 N MONOCYTE # (test code = MO#) 0.8 K/mm3 0.2-1.5 N EOSINOPHIL # (test code = EO#) 0.2 K/mm3 0.0-0.4 N BASOPHIL # (test code = BA#) 0.0 K/mm3 0.0-0.2 N MANUAL DIFF REQUIRED (test code = NO DIFF/SCN CRITERIA MDIFF) PROTHROMBIN [id number] 18:02:00 Test Item Value Reference Range Interpretation Comments PT PATIENT (test code = PTP) 16.2 SECONDS 9.3-12.9 H INTERNATIONAL NORMAL RATIO 1.40 INR Unit 0.8-1.2 H (test code = INR) THROMBOPLASTIN TIME [id number] 18:02:00 Test Item Value Reference Range Interpretation Comments THROMBOPLASTIN TIME PARTIAL 30.7 SECONDS 26-35 N (test code = PTT) BLOOD [id number] 02:01:00 Test Item Value Reference Range Interpretation Comments CULTURE (BEAKER) (test No growth in 5 days code = 1095) Blood Culture - Routine (Right Venipuncture)2018-09-01 20:01:00 Test Item Value Reference Range Interpretation Comments Result (test code = No growth in 5 days 6463-4) [id number]:00 Test Item Value Reference Range Interpretation Comments CULTURE (BEAKER) (test No growth in 5 days code = 1095) CBC W/PLT COUNT & AUTO [id number] 05:36:00 Test Item Value Reference Range Interpretation Comments WHITE BLOOD CELL COUNT (BEAKER) 6.7 K/ L 3.5-10.5 (test code = 775) RED BLOOD CELL COUNT (BEAKER) 2.63 M/ L 4.63-6.08 L (test code = 761) HEMOGLOBIN (BEAKER) (test code = 7.6 GM/DL 13.7-17.5 L 410) HEMATOCRIT (BEAKER) (test code = 24.6 % 40.1-51.0 L 411) MEAN CORPUSCULAR VOLUME (BEAKER) 93.5 fL 79.0-92.2 H (test code = 753) MEAN CORPUSCULAR HEMOGLOBIN 28.9 pg 25.7-32.2 (BEAKER) (test code = 751) MEAN CORPUSCULAR HEMOGLOBIN CONC 30.9 GM/DL 32.3-36.5 L (BEAKER) (test code = 752) RED CELL DISTRIBUTION WIDTH 17.2 % 11.6-14.4 H (BEAKER) (test code = 412) PLATELET COUNT (BEAKER) (test 257 K/CU MM 150-450 code = 756) MEAN PLATELET VOLUME (BEAKER) 10.4 fL 9.4-12.4 (test code = 754) NUCLEATED RED BLOOD CELLS 0 /100 WBC 0-0 (BEAKER) (test code = 413) NEUTROPHILS RELATIVE PERCENT 71 % (BEAKER) (test code = 429) LYMPHOCYTES RELATIVE PERCENT 16 % (BEAKER) (test code = 430) MONOCYTES RELATIVE PERCENT 9 % (BEAKER) (test code = 431) EOSINOPHILS RELATIVE PERCENT 2 % (BEAKER) (test code = 432) BASOPHILS RELATIVE PERCENT 0 % (BEAKER) (test code = 437) NEUTROPHILS ABSOLUTE COUNT 4.75 K/ L 1.78-5.38 (BEAKER) (test code = 670) LYMPHOCYTES ABSOLUTE COUNT 1.10 K/ L 1.32-3.57 L (BEAKER) (test code = 414) MONOCYTES ABSOLUTE COUNT (BEAKER) 0.63 K/ L 0.30-0.82 (test code = 415) EOSINOPHILS ABSOLUTE COUNT 0.16 K/ L 0.04-0.54 (BEAKER) (test code = 416) BASOPHILS ABSOLUTE COUNT (BEAKER) 0.03 K/ L 0.01-0.08 (test code = 417) IMMATURE GRANULOCYTES-RELATIVE 0 % 0-1 PERCENT (BEAKER) (test code = 2801) Tissue [id number] 15:04:00 Test Item Value Reference Range Interpretation Comments Case Report (test code Surgical Pathology = 104) Report Case: [id number] Authorizing Provider: Maliha Gotti MD Collected: 08/29/2018 0932 Ordering Location: [place] [address] ICU Received: 08/29/2018 1318 Pathologist: James Stringer MD Specimen: Polyp, Colon - Transverse, taken by yahaira DIAGNOSIS (test code = [id number] 3220) FuZzEwMzNcZnRuYmpcdWMx LIksroXpLTibo9VlG0AtAi AwMFxhbnNpXGRlZmxhbmcx YLPpNHT9hvUlAGXhNLreRC AhODazEy1bvQRibPmrPkZb ONRvf7mvitCTeplwfRm5rH ovC22zl2K3YjbjX3fmFUYe SZNmM6DbTX0mXGHcMgo9LW S2OGJ0BJReTKNvY6HnTU2m UKZxxWLpWEh0i7bbrDckSJ IsFMK2n3uxDKlmhuOyXQ9h ll5fdUc0h8btssDeAUMmBI NkuNLIGUKqI8OjjTruMz6e lQu0pGwpQxcvLMV9Hpl6IK 4ykz31gja5fFhyNBXzkbjn ObZ0YFmaQKHmzexeKFz3YE xtYXJnbDcyMFxtYXJncjcy MFxtYXJndDcyMFxtYXJnYj zgKCoeZKPrMSP6OGvqs204 TFA2QLhlc4hku2zysXVoBm z2YWVsQuPwOvdiXWymv0Xu x9zeDNCoob7kTPL7vMJcrC umn5F9dFQaXJJwrMYkuuFx WQOxZiA9KSywAR5lvs74XF LtLWG1gz6oeLSjjHggitNd gEWzJTqsF1SsNUWxn211NJ UoF7YhSLRsn9M9waSkTeAp FGRtrKL5hxS2UWZgXHj2xT ScnuC2nzVvwFLcV5yzeZ88 IaZymLEiV0UnhG76EoInjU YyW0DwjZ46VwIzxKYzA8Uy jN17VwSzuVFuNQEemFNjAz 0maJPmfHIxy5OlmQVjEQsf J52qg964YBHzmjFcA1mfyT FpblxwbGFpblxmMFxmczI0 XHFsXHBsYWluXGYwXGZzMj BcbGFuZzEwMzNcaGljaFxm ZCqyFbVbGPKhFZeiW8lrJs BcZnMyMCBQQVJUIEEgVFJB KrOBLFZICCYCV5lEKfITKS 8IC5hvBx5NBZFZU0KDK7VH IRIXD7lCJVlihEGtIFgTSm gZYE5ION8TSRMFI5GNYH2Q G2yIFU0efQEvBSWwjq30XE P2UmLly5E3HQO3XHIyYJKk o3bkMIXsaMHuKwFqXdYaXj BiJdmhhWChIOTkRdDyg6rl p233bYAyx8veOXTuNmE7dX GvMIIsmOJwA406CLQkUSus x4aew6MxDUGatLMnj3Q7DD AFzlkflAt2rAgxK74gd8Y4 RejvL0ufUJSbVVZeW7KjSG 7hAFEmByt2PKF5GWW5LAYi DRNxV7DvSN4zKLKqdQCtMT a2e3ulyXxsRZTlSTI0w2gv MRsjhvDdPI5urh9omJu0p3 xjczEgRGVmYXVsdCBQYXJh A0VilNgfWx4mqAm9xTyrBs ahZCC6Wpz5DP6opa18eru5 nVexWOCuatqfJaL6CDqkEO JrimheMMi8QQdaDRWbbOB3 HUJlqCWzU7McJBFoAS3gkl k4QFP5QDhvQWVzWnD8ENUc qADeIZJhhGsuIBwhg039TS G1EkQjFD0lT8Bex7S8hY1s aXRcZGVmdGFiNzIwXGZvcm 5rdKKfSUbok7YrLAJ3uqY4 uWQjnUKkQCEyJiC7BUzzIP 0ypc10RWVqMWJ7rh7xhKUi nStgmiCugTYdSPivU2YeHR Akc158JZRjG8KkTWXxt0V0 ohOuIaUeFNMsuAZ2vyP6SA IbLO3kbqxcc2gxUDzmFJbq IWLutrC9lgO4JUEvcXOlQ8 LmqW8bPJJhVN0ajyamx5um GIJ3KYoiJYQyASI1ZmBjKF Oqa4Awnhc0WdZof7RhySAr XGsaF52nw165PUOjbvRtR7 xwbGFpblxwbGFpblxmMFxm rpV4BGWsJFxiurobFMBgRJ axQ1xuDnNrOSYfvQtlGBpy w2FbMFDfGQPgVlNqcFDwXZ DeWqt4ZLZnoOGjPOVxPyDk K0mntheuLdHUATIpy9bqX2 ipoAPKdKHgC5LsSWkzhjOg SZpbJOdxYQW2EKV2Nr00Xx O9MSFjyb54 COMMENT (test code = n7awfRAbGJOntODsYtQyOM 3352) CvBILzh3ceSMRsyDYwAfUl MzNcZnRuYmpcdWMxXGRlZm Axl8vzp097dKNtf6wyLNTc QbT4aQYpIPJmnFYfF314h3 dqy3zeyjFseVN1VWHrBUN5 IAotiyDyuxF3AUeasQVtOk Z1ZMajckCnTPtgfxXhopLq Hmf9RNBcO406XUY9jKhpi0 oxZFK9SBJqGWMxJcAdBq4q lXDmM579REHrDQOYIEFycM k8GTDtmgSwbzCkqEMGd786 Y555d8xpSZValoRpxFuJxp prr6mcB184FPGscLQrncNe QeMlLQKxfNMtuLZ8VLAfUV 1yoswlPgQsTG8wozwgAvCn AC2fmxl6SdUqFL5bofkjVr LrOXfiYQSpbqthONFkx7Jx kikeHN2jL5Uxp7M6jY7zyN XuYQDjyEUxItSiJIAbhj8b nTHsFAtjo5MaWSR0soH5zS TnfWYwSWXoMS50Gtwwt0Il QjudOIM1LCNaacQmu2Jhe8 vqPaXggfUhF4dgR8VpJFZr HNZkNXIkQlEyvmKeu5Sfz0 OwsRXmgOb5p8poQYWxUSKv wAsyp9esHFI7BZVxE3P0gB Nde9zzCByfRYYvrWU4adyu ECsoKUWfroV9wjonBNnfYC EazGS4rwqoMVldFOEfIbV2 sdyyXXiyFFFeIAP9ACtmn7 50JCU6FHshHwufNMtoFASu bmNvbnRccGduZGVjXHBsYW luXHBsYWluXGYwXGZzMjRc oHpfiUodxV8mVmKpSyVeQX lpUQ2nMZBwK5xrfVZqYWHw MRPwJ3hmCuJqlP7vqErwPF auzhIdTScjmXBnm7B5MGks dnCpc7KbC51JNWKVU1FmZD ZottUsGINSOiPgUMLwe8Ju GRUjg20pFmjzO6enBKCtNN WvBU2uO1L1iTAlHbmoTEP9 CPT Code(s) (test code a4eygPAdFMLxxIAyLiWxOB = 0578) DpHPJhq4iiXSYinOAuImBg MzNcZnRuYmpcdWMxXGRlZm Pjo2zxb794pBXhc0ttVOFm YjN2xONxZIAvnHMiH843y0 luh5gvrhHejRF8ARHoGYF4 FYywdeWcnkC6QOdqbQJcXa A9YMetjxHqTQwabkSkvtQt Zek9WTHlC662PIQ0oYkke8 qnYCF1BUKoAZZtQfHvYu9m oMVfO730BURkPQKZAGDqkL a5DTEmhcDmweMuaSEXh265 Y459w0ovVUTlueIqqCdIbz eud3mwE235NZGnoNSubjUf VgDcDOSiaNNhpBO8UUUsEH 9pkxfoDdTuZL1eaytxPfYl OM3wmsp9YvUgVP9ijxsgPn EdJFrtRDYhojeeDBVsd7Jx gzguPC0hJ7Liv7S2wA4wmX MtFSRypXPbMxFlDEPeaf9r xLTwLIeti9CwESB8auP9zE CpnIPxBTJmAT54Xpflo9Sj ZbqmRPU5BBZbczSoq5Uyo5 iyJkRdlfQkW3peB5OtNPVx PJXbNZUxGxCmqpBiu1Fkf6 RoxLXtiMf2m3bgWONdFDNc oJctb9qqGAM5AASfJ1M2dV Dro3ubVBrfGDDibVH4bhmv SMlqTGKuyoZ9yptgKZlfCJ XnuYT6imtpDNpbJWMcBiF1 osekFLnqJEWwTCA8SWhcm9 24IBM1XOnzAcynVUcxRKQg bmNvbnRccGduZGVjXHBsYW luXHBsYWluXGYwXGZzMjRc aJdbuIwtfV6uDcFjLpPlRR cuCR8kINXaM5nwnEGiGNUv FLAoH3trErEsrP3mgAwwXG chczEnQVl2KeL5FCA9JCU8 MiwgODgzNDFYMlxwYXJ9 CLINICAL HISTORY (test x8eptFIuRIJndYApVtGwRB code = 3104) WyRBCkr5mxGAQsfVQgPjJg MzNcZnRuYmpcdWMxXGRlZm Ynd3ebi225qCCha0rqPFPd OvM2qOVkDGYjeJTuO742BN LmJDvze9sbp7VtWVZheVJv k3R9XKNZebqegSy1pQazF2 7ch3N2JsvhV1hiSKNiPTzd PHXiMBftnLLzGIE1MNUdFP Q2JXzapbZfmuE3RViyiHFv ZbM5QMg0r3slwHgmOEScLQ U4n1dwYXhnhaCoXK7roa9m gJz3p8qdnuXyIEAiOWNowD NRMBDeP7UkoDjuIy1mzUg9 eXqxXhfvYIM3Qsd4MS9nwk 59isv6qWpkLOPsqcnlYnP2 HAjbVAPofmmdNAj1ZYxrLS JnbDcyMFxtYXJncjcyMFxt YXJndDcyMFxtYXJnYjcyMF ukHBVkHPM4JDyxf779DNA0 TAcui7kae2ozoJSoMeu3QQ SrEoZeMhezFZmox1Gmw6nw GDDbqr5hNJQ9mOXppWyez9 P6dYDoACNxxHIyxjIdQKQs IpT2TDpxCY3gon60ETTqRD D1sw0ehEZqjZrtfyBplNAd IOaaH0TlXRPez143APYzQ4 DtYXDtv9U8lqXbEyZcRAYy gWK7koA7RZNiSAe5eEAiok Q5jxNudEOpS4rvdO53BlJe wHJtK2IayE07NvTwzQDeI8 QxmW87IiOlhQXuK9NlxC17 EjOujDDlZUDnmLRxEa5caU TerXRwl2JkbPRgXJhbE91m f871JLUamyFwJ3kxjBLszf xwbGFpblxmMFxmczIwXHFs XHBsYWluXGYwXGZzMjBccG bjpI3fRaOzOzVdMZVQymZt CR0oLSLgw2YdwCLopJGywg 5toPN9KBxea0Tic1krgVIz nUebUYvioSNpn7XmuZVhFT eotB5jsRIspSWnAZJoK1Vu xYPpyZ65RGL5iM3oiEQkMP 3txhKrWCqqABS3xLCbKSKx cn0= SPECIMEN SOURCE (test c0iqrTCgZMGmkEJhMkCuHT code = 3377) MmENSoy5rhZYKanNAuBbXh MzNcZnRuYmpcdWMxXGRlZm Sls9ele833jCLxr1euZYOv KgL6vAIlWGIzcWTzT520JG TqHInmi0zny2RyZILanBMt i9G1OKXJlmwkcCg5uNsdW4 7rn9B5TaexV6auRZLgQRzi RQNeMLlfzGOmRSL0WQUpUK P5IKqtzgQpktJ0GOkmyPRm UfX6BDg5b7byxNgrVNKhZP T4g6azGPuxfoFpXW2ckl3f yGy0q0newsZbRAVbYPZnhD DOXFMgV0RcsQohYr9ykQb6 zUzwYnthVZA6Lbz6BV1mev 88oql3rXldZFIcpfpqYbY4 ESkyVSEynlmyVVh2WRcpWT JnbDcyMFxtYXJncjcyMFxt YXJndDcyMFxtYXJnYjcyMF sjYXSpDKA0WCkgw429HRN8 FEbvr0lbi1pfgOOdThm0OX PoTqXtRjliEGtvn2Jdi6ai RKOvch5wOIZ4vFWkgGcfr8 D6uEJfTPBrdJKhiuGtYOTr CaN9LJnvBB1jqt46WSFaSP X3eh6mdOEwvYrpnjYwzCTt TAlwD2YmJIBgs364FPDnC0 UbFGXci6C5cdItMhMzEEOd rPY1wxO9MIDnLRg0uCZgrm I0knWdoELnG9vvnF61GcVw aGVkF6KkjQ67HgOkwAToR9 DxzW26RhOejYRrZ0MlhX37 SdZydTOnKLEoxZCfDw0fpC NpjWGwp6HpwTEmFVdhO39f b567LCEmdmMsO2fhkGQzoq xwbGFpblxmMFxmczIwXHFs XHBsYWluXGYwXGZzMjBccG mcyK4nWjMeGoAuZNYQn3o7 fJiuY29jm68tYVMbgCwsfI 6aXoYuYwQfCZN3buTox8Bd cnNlXHBsYWluXGYwXGZzMj AgIFxwYXJ9 GROSS DESCRIPTION (test j4oijUIbFKMmqNAwCgKqSA code = 3366) GeVHQhz8tiAEGyvCYlRbCx MzNcZnRuYmpcdWMxXGRlZm Ppe9fnv216bAHcg3ioQBDl SgT0kZUjFUGuxAEnC169OW BdJOzfx8udj8GeRYLjrOOv u3A7JJVTgtnflZn1fUbbF3 4zx4V3BbluB3sgUHFqUXiq VVQiIJoawTNkMVF4UWEuIW Z1JDtemhKtygB5XHohmCMq XdQ2QZt2n4nqzBugCLPsKQ Z5o7dpFMlkctDfZA8zag2u vFg6v5ypyjFoQOPeKEHrfE MCNOLaL7KumFkbDd8ghXi9 kYybGmunVNP7Qvh6BB6saq 11bqy3xSjjNTJhohqfCsB9 IQqrGYEorowuUUi3RLyoWJ JnbDcyMFxtYXJncjcyMFxt YXJndDcyMFxtYXJnYjcyMF mvWHWeJTS4ZIqlm710UDK4 QLtow5xuf6tqtDZfCrk0SW WxKhZgBczmIIeja8Xae8hm NHMcur5jOQO5tRSqkFoby4 K5iULkSDPpsSFwwjAtSQAy OlZ5YFxcDQ6vel83JOMgVX V2cy2tyWEaiHwxozQvsIZg ARdaF5TfLRYlo821XJUnD6 IhMHUre3O9ojRqGnTpVUCf hOV8kiJ8ROWgMWf6kAHulz J3jvYueFKtV9htgJ65YmUq wQGdU4OqzR21IfSgdPXpH5 UvqH97CaHotUQzS7LkqE70 VoIytEKaBCEslHLiMu8kbG WfbUNyd2JgmZEuGMcoI20n a654XESrfzOgE8zizYHtzl xwbGFpblxmMFxmczIwXHFs XHBsYWluXGYwXGZzMjBccG ztgY5mAvSuQlJaQZFGXPIz zSArKSKkydZzr7RvYBotcm BsYWJlbGVkIHdpdGggdGhl CQEsfAedvyIhrwTjGY6fRW EmX5Ojx4Wuk09ccaLcXiLg RRInDQRhqT5wqKSvIYBomQ 5mYP8nHQXcEHbuSSTbNAAj VeBrpXDwmjD2QGVkPZgufO FpblxmMFxmczIwICIgaXMg MEDqFyRtL09vpAWtAPFyBx FzrPiwe4EcVMRdMRyuAT31 JMyzgKFkYIjeGWV3Uo5ipH OrENTpxsF6g9HwXMehVCFa XwMmGPWBXj3vqKMviCEwtZ == MICROSCOPIC DESCRIPTION i4sgdCOkXNUgpVQpGtVcYS (test code = 3371) QxXWCil4jrCQEadQVrQnQj MzNcZnRuYmpcdWMxXGRlZm Cnu6maw397hQEay1uuIFIt WpE5bPTxCJCmsWAlO722s2 jbp1zrsqYbzKB8IJObRWX7 NAxifxTwnaO8LCzopHDgFq W7ERzsyhFqYHkxarLvnkIf Zqf9AIGqQ488LLX9mBrts2 ixTLI2JNZsDTTwEwMyWl5d rVFjA855NOAyYRBRYKYlpW s3XLLazmOhpyXhlKQFs049 C822j1buUYUpiuOaqHjPxc lfw4tmB759QZNeeNEfhyDp GhRvSCRttJBiuIK2WPZrEI 1uachaZpSqBS1fczmpSxQf VS6tuda3IwQvFA2cnjclJt FpHLlmSXKupjhuFUCda1Gk wkmnVQ9yR8Oah1I3kY6rkC PxDKAsdCYeYaRqOHSoen4v vXRhCHdzw0BsGJE8afR6sR HaqWGwMJKhXG51Zmszn7Ik EtuiIDH4HUFjkhSru6Eab7 zvXvXwciXaQ3btS4VsZLXg YNKdDZEsKjBnmoIen2Jgn5 ZolKXavSj2i3kiVFVhGNCx nAonx5pgUGP3QJAkW5L3tT Tor5sdRBdeVXVrqXU0sgbf RKyvLLGqphX0ggpjRGkuBS KpfXQ3ulbsVVwcBSJxHfY4 bzdgGAxkKOSlBGN1XTbij0 60MYD5LGqmMsrzRXhrTRNu bmNvbnRccGduZGVjXHBsYW luXHBsYWluXGYwXGZzMjRc iCxtcJapmG6pNaLhZoRsLC soRM6xHMFxN3pwsJOgXWNo GZBbC1kcTbNbcN7jbVqfDW fmoeYbMBUIXuNQUd5ZZJ5a XHBhcn0= SPECIAL STUDIES (test e9ihgCPfAESnaCJzEuCuEQ code = 3376) DsMTWgg6wfTCRejNRiRxIx MzNcZnRuYmpcdWMxXGRlZm Smf8kfd132nCSik4gnYQAb RiG5tJGvIOZmwYQxQ625YB IdHZdhc5iqd3MgFDZgoURx h9R7BLTQGBgfDaZoD510UX XbLBcth2caa9WtHBPifSQi c7F6CQRRejipvWe9xLnoS8 0xc6J7MalqV3ngTPPqFPEv T1DbFG5dNCVxKkv6IHF8GR M9VBNsUXRnT2BjMM0oDIIc pBRmMGp0y8dqxZviDMGqRZ P4e9wiIRokhtW1CV0ksj6v wXl2x3hdvkGcHMKdOYZwaW JYSUThT7IkbQzfJd7bjSq6 u7jdAzxzajJ1kHEcOtDgUk MyMFxsaTBccmkwIENvUGF0 fXDXGSx2R277d1nwRPOjic NuuInJwlolm5ymI311WNJc cGVydzEyMjQwXHBhcGVyaD W8LZDlZX1sfldcLbEoVZ2w amdxUoCpIG6ejct4LyHlCM 1hcmdiNzIwXGhlYWRlcnkw UKKie2XkxyytFL9yO5Atl7 B9fA5trITuWVEmfCEbAuKb KVCjjt1vwPMfZBkdUEM0VA YfxtUwn5Kyg9tgEyWguwJs F2ouJ1ZfGDKmRQHfKRVaDw JhecXkv5Yuo5PagQHdpDs1 t7llXIIxWKHznKjzr0sbZM L4GHEzP7P1bQKfh6wcWZhh EDVhqYV8uhvdALrpGJInxs N7gyhfOCzqHMIotUY0vjer HYjjHNZeBkH9rlqmQZnnQG MnCNJ4SNqtw000JII9QRyk YmtwYWdlXHBnbmNvbnRccG duZGVjXHBsYWluXHBsYWlu XGYwXGZzMjRccWxccGxhaW 1uHqDhCrZlTdeyCE3uRRPr Z0exnYApVYRjAHAtT4kgDc DjvM1adZfxPWorDgFiPmSh FpWHuUBnfN25MRGwfaE0RX Rbs25pn0OlwEmdkcIpFQSk BGugS5k7XQBqATGnXEH6i6 Pml8ZcnN0lbO9byVmafZ5b pPBoePK9ufksb2Zha8AmA1 lhbCBzdGFpbnMuXHBsYWlu XGYxXGZzMjJcbGFuZzEwMz NcaGljaFxmMVxkYmNoXGYx KEtzB3dtMbUpK9LqZQBrEy WvsWRmY7scxXYxYGWcEGlz XGYxXGZzMjJcbGFuZzEwMz NcaGljaFxmMVxkYmNoXGYx NEsfB0yoPcPgJ4JhYXUjQd VaJkcVJ6blMRHvLLBZLbwp SFNWMSwgSFNWMlxwbGFpbl xmMlxmczIwXGxhbmcxMDMz AVlzX0amCuHpKERifOylAw lch2GaDWPmRQUsXdXfiEQg XHBsYWluXGYxXGZzMjJcbG FuZzEwMzNcaGljaFxmMVxk YePwTDQfOFclT0dgEnCbV5 DeWZEyCcDqU98mwGRcgYBZ xRcsHQSqZMtnxUgeCSJ6BU IHts6ou7JyRRJatc36liSd y2CglTb1JRUmr453xy6uii H0QYBiYUF2MVh8LEEwZXWc sL2tUdJ7jFStKHXcCOP7ZU G6JAZvu6F0KY5yCHFfKUHa TFFikgTzj8xut9xfVYXuTV L1frRxnO3wL2UyQMFlw5Sk dGhlIHBhdGllbnRzIHNhbX MgRYQypN98BWJveQEajYMs UQQvIXP5KBnqoR6iErGJcx Hhkr1ydJIzc1IzsFc7VGVz erEfhcDlNWNypbZeX22nnV TniEMfx8hefxSwupPpsXOp gSOsFUClCAP0IUd8ZYRvYR xwbGFpblxmMVxmczIyXGxh ghfyPXHdXWnbK2kiMcNzCB XjqSqoSNymb4CfAOIoHHWv QrcabqNeYKx3skOuHHYmwk xwbGFpblxmMVxmczIyXGxh lkkfCNDkVGmiX6lhIsGoYY XvjFznJIpmw5VxHFJcLBRp ScfnprDyEISfhHtuuG9hQo YxNuNiDaniCB5yUMRoT6hd eFFqZDRvMKBzQ4mdZqHwuD 9jaFxmMVxjZjJcZnMyMlxs zNMkiSfuZBCenHizsW2lAc BrPeWuQqrvMV1kRRXzI5dd kALrRVLxOVFxJ4hzEuQaaB 9jaFxmMVxjZjJcZnMyMiBJ xA70cu9xtZA9g5XgXF3ay6 RxmSK5BLEvdkreJWlddYLs vBhcFwD4KFNzeDUsKd2nnF HoZWL3DJVpqTxmlcHBiY9w THVrZVxwbGFpblxmMVxmcz PqGLzdagcfPWKtMCbeX5la VsKfGDLmtSktCChyp8DrCP MpUMXxYuxxhqYmAHC1FhH2 RCbzNWDxvJzhnO8eMxFtVg UuWsqtQQ1dDVVxX0hfcBVg IZUzPSJgI0tjUqFriB8vzF caOIcyZkPaZgRdLlIlTL3i QYnrCQpwH7RvyHSxNSRJGS Vdo8ywJ1otKZKkf7JnoB7o mJF7hMJqHQVeuAH9IADpVQ Z2BIhkrHZeIUIqKDGpsMZy pUFrVr8yaUFuM9VtQ1zhiz WlqPBlgBJ0dPVeYGhvuuBr UKP2HUVnxK5cLZ1bGXMcfV AzTL4smCUpTWKeDIAbTODr DMVmq7YfYGWihj64PXHkSa mcaJofRWZaRn8kJu4zTJBk gxIlAYM4FdAVQB2oivrmnS GpaBrpdj6hGZoqPCWCSFPo NTEhRHE3YMIlbN9bIZU3qI O8EUM2Y8pqO1ewOUAotzMk JJ5dHMCemWMhehIqGObeCI 7bvUJgMIQrm2DuzahlCACv QRW2UKC2IYkfQCUcJGNdBy 7xOOHemA6qB5QdZTJ5xbXo p2KrZkKQvLTyoW48aFZeit 19VQOsPUReT1RcRLOsLOCa BEcijlJdaCsxBCKmy27qiF IcqrKnu0CrryAeSMKgU2pc HSMynIZmvPUrm8PubC6sjL GywjCgLKR5zNFpTZAkxR5v ILWyoCfmUUXsrV8aM2MsMY ktEe0fPFGvebssIV1yeh91 OM0udwEqUL5becRpXY31zc BuKxJhBJs0RRmVKHyVNJd1 KSBhcyBxdWFsaWZpZWQgdG 4ikPZxXa3ayHVzpSjqPMKi rLSmPRlpjTfpH5xoqltiDO xnxBBrg0TmwB8lrJA3DKN9 yL9tYexsvIEamcxgZptswp IeYWhslodwXJJsPRgpU1tq UmXeAPIhnYdhRvurw2LyNW YyXGZzMjJccGFyXHBhcmRc pAiqxX3uVhDiYrRwTKhofQ BfzwvcWddbevD2QFHauk7= [id number] 15:04:00Surgical Pathology Report Case: [id number] Authorizing Provider: Maliha Gotti MD Collected: 08/29/2018 0932 Ordering Location: [place] [address] ICU Received: 08/29/2018 1318 Pathologist: James Stringer MD Specimen: Polyp, Colon - Transverse, taken by yahaira PART A TRANSVERSE COLON BIOPSY FOR SUSPECTED POLYP:INFLAMMATORY PSEUDOPOLYP. Signing Pathologist Direct Phone Line: [phone] signed by James Stringer MD on 08/30/2018 at 3:04 PMImmunostains for CMV, HSV1, and HSV2 performed on block A1 are negative.[id number], [id number], 89107T0Kmi and postop diagnosis: gastrointestinal hemorrhage, unspecified gastrointestinal hemorrhage type Polyp, colon - tr ansverse Received in formalin labeled with the patient's name, accession number and "polyp, colon - transverse" is a 0.2 cm york soft tissue fragment which is submitted in toto in A1. CG/pl PERFORMED. The interpretation of this case included the use of immunohistochemistry or special stains.BLOCK A1- CMV, HSV1, [id number] Slides Examined: In-house known positive controls were evaluated along withthe test tissue. These control slides run alongside of the patients sample show appropriate staining. Internal positive and negative controls when available are evaluated Immunohistochemistry technical testing was performed at [facility] Pathology Laboratory where it was [...] perform high complexity clinical laboratory testing.HEMOGLOBIN AND [id number] 12:44:00 Test Item Value Reference Range Interpretation Comments HEMOGLOBIN (BEAKER) (test code = 7.7 GM/DL 13.7-17.5 L 410) HEMATOCRIT (BEAKER) (test code = 25.1 % 40.1-51.0 L 411) BASIC METABOLIC [id number] 07:28:00 Test Item Value Reference Range Interpretation Comments SODIUM (BEAKER) 136 meq/L 136-145 (test code = 381) POTASSIUM (BEAKER) 3.5 meq/L 3.5-5.1 (test code = 379) CHLORIDE (BEAKER) 106 meq/L 98-107 (test code = 382) CO2 (BEAKER) (test 25 meq/L 22-29 code = 355) BLOOD UREA NITROGEN 4 mg/dL 7-21 L (BEAKER) (test code = 354) CREATININE (BEAKER) 0.57 mg/dL 0.57-1.25 (test code = 358) GLUCOSE RANDOM 84 mg/dL 70-105 (BEAKER) (test code = 652) CALCIUM (BEAKER) 7.9 mg/dL 8.4-10.2 L (test code = 697) EGFR (BEAKER) (test 169 mL/min/1.73 ESTIM ATED GFR IS code = 1092) sq m NOT ACCURATE CREATININE CLEARANCE IN PREDICTING GLOMERULAR FILTRATION RATE . ESTIMATED GFR I S NOT APPLICABLE FOR DIALYSIS PATIEN TS. [id number] 07:13:00 Test Item Value Reference Range Interpretation Comments Magnesium (test code = 21550-0) 2.0 mg/dL 1.6-2.6 Lab Interpretation (test code = Normal 29214-1[facility] Test Item Value Reference Range Interpretation Comments Phosphorus (test code = 2777-1) 3.7 mg/dL 2.3-4.7 Lab Interpretation (test code = Normal 51820-0) [facility]:13[facility] Test Item Value Reference Range Interpretation Comments PHOSPHORUS (BEAKER) (test code = 3.7 mg/dL 2.3-4.7 604) [id number] 07:13:00 Test Item Value Reference Range Interpretation Comments MAGNESIUM (BEAKER) (test code = 2.0 mg/dL 1.6-2.6 627) HEPATIC FUNCTION [id number] 07:13:00 Test Item Value Reference Range Interpretation Comments TOTAL PROTEIN (BEAKER) (test code = 5.4 gm/dL 6.0-8.3 L 770) ALBUMIN (BEAKER) (test code = 1145) 2.4 g/dL 3.5-5.0 L BILIRUBIN TOTAL (BEAKER) (test code 0.3 mg/dL 0.2-1.2 = 377) BILIRUBIN DIRECT (BEAKER) (test 0.2 mg/dL 0.1-0.5 code = 706) ALKALINE PHOSPHATASE (BEAKER) (test 82 U/L 40-150 code = 346) AST (SGOT) (BEAKER) (test code = 14 U/L 5-34 353) ALT (SGPT) (BEAKER) (test code = 7 U/L 6-55 347) CBC W/PLT COUNT & AUTO [id number] 05:45:00 Test Item Value Reference Range Interpretation Comments WHITE BLOOD CELL COUNT (BEAKER) 5.5 K/ L 3.5-10.5 (test code = 775) RED BLOOD CELL COUNT (BEAKER) 2.50 M/ L 4.63-6.08 L (test code = 761) HEMOGLOBIN (BEAKER) (test code = 7.2 GM/DL 13.7-17.5 L 410) HEMATOCRIT (BEAKER) (test code = 22.9 % 40.1-51.0 L 411) MEAN CORPUSCULAR VOLUME (BEAKER) 91.6 fL 79.0-92.2 (test code = 753) MEAN CORPUSCULAR HEMOGLOBIN 28.8 pg 25.7-32.2 (BEAKER) (test code = 751) MEAN CORPUSCULAR HEMOGLOBIN CONC 31.4 GM/DL 32.3-36.5 L (BEAKER) (test code = 752) RED CELL DISTRIBUTION WIDTH 16.7 % 11.6-14.4 H (BEAKER) (test code = 412) PLATELET COUNT (BEAKER) (test 249 K/CU MM 150-450 code = 756) MEAN PLATELET VOLUME (BEAKER) 10.2 fL 9.4-12.4 (test code = 754) NUCLEATED RED BLOOD CELLS 0 /100 WBC 0-0 (BEAKER) (test code = 413) NEUTROPHILS RELATIVE PERCENT 66 % (BEAKER) (test code = 429) LYMPHOCYTES RELATIVE PERCENT 22 % (BEAKER) (test code = 430) MONOCYTES RELATIVE PERCENT 8 % (BEAKER) (test code = 431) EOSINOPHILS RELATIVE PERCENT 2 % (BEAKER) (test code = 432) BASOPHILS RELATIVE PERCENT 1 % (BEAKER) (test code = 437) NEUTROPHILS ABSOLUTE COUNT 3.65 K/ L 1.78-5.38 (BEAKER) (test code = 670) LYMPHOCYTES ABSOLUTE COUNT 1.23 K/ L 1.32-3.57 L (BEAKER) (test code = 414) MONOCYTES ABSOLUTE COUNT (BEAKER) 0.45 K/ L 0.30-0.82 (test code = 415) EOSINOPHILS ABSOLUTE COUNT 0.13 K/ L 0.04-0.54 (BEAKER) (test code = 416) BASOPHILS ABSOLUTE COUNT (BEAKER) 0.04 K/ L 0.01-0.08 (test code = 417) IMMATURE GRANULOCYTES-RELATIVE 1 % 0-1 PERCENT (BEAKER) (test code = 2801) [id number] 06:28:00 Test Item Value Reference Range Interpretation Comments PHOSPHORUS (BEAKER) (test code = 4.0 mg/dL 2.3-4.7 604) [id number] 06:28:00 Test Item Value Reference Range Interpretation Comments MAGNESIUM (BEAKER) (test code = 1.9 mg/dL 1.6-2.6 627) HEPATIC FUNCTION [id number] 06:28:00 Test Item Value Reference Range Interpretation Comments TOTAL PROTEIN (BEAKER) (test code = 5.2 gm/dL 6.0-8.3 L 770) ALBUMIN (BEAKER) (test code = 1145) 2.4 g/dL 3.5-5.0 L BILIRUBIN TOTAL (BEAKER) (test code 0.4 mg/dL 0.2-1.2 = 377) BILIRUBIN DIRECT (BEAKER) (test 0.3 mg/dL 0.1-0.5 code = 706) ALKALINE PHOSPHATASE (BEAKER) (test 82 U/L 40-150 code = 346) AST (SGOT) (BEAKER) (test code = 20 U/L 5-34 353) ALT (SGPT) (BEAKER) (test code = 7 U/L 6-55 347) BASIC METABOLIC [id number] 06:28:00 Test Item Value Reference Range Interpretation Comments SODIUM (BEAKER) 141 meq/L 136-145 (test code = 381) POTASSIUM (BEAKER) 3.7 meq/L 3.5-5.1 (test code = 379) CHLORIDE (BEAKER) 110 meq/L 98-107 H (test code = 382) CO2 (BEAKER) (test 24 meq/L 22-29 code = 355) BLOOD UREA NITROGEN 4 mg/dL 7-21 L (BEAKER) (test code = 354) CREATININE (BEAKER) 0.56 mg/dL 0.57-1.25 L (test code = 358) GLUCOSE RANDOM 86 mg/dL 70-105 (BEAKER) (test code = 652) CALCIUM (BEAKER) 7.8 mg/dL 8.4-10.2 L (test code = 697) EGFR (BEAKER) (test 172 mL/min/1.73 ESTIM ATED GFR IS code = 1092) sq m NOT ACCURATE CREATININE CLEARANCE IN PREDICTING GLOMERULAR FILTRATION RATE . ESTIMATED GFR I S NOT APPLICABLE FOR DIALYSIS PATIEN TS. CBC W/PLT COUNT & AUTO [id number] 05:15:00 Test Item Value Reference Range Interpretation Comments WHITE BLOOD CELL COUNT (BEAKER) 5.6 K/ L 3.5-10.5 (test code = 775) RED BLOOD CELL COUNT (BEAKER) 2.67 M/ L 4.63-6.08 L (test code = 761) HEMOGLOBIN (BEAKER) (test code = 7.6 GM/DL 13.7-17.5 L 410) HEMATOCRIT (BEAKER) (test code = 24.1 % 40.1-51.0 L 411) MEAN CORPUSCULAR VOLUME (BEAKER) 90.3 fL 79.0-92.2 (test code = 753) MEAN CORPUSCULAR HEMOGLOBIN 28.5 pg 25.7-32.2 (BEAKER) (test code = 751) MEAN CORPUSCULAR HEMOGLOBIN CONC 31.5 GM/DL 32.3-36.5 L (BEAKER) (test code = 752) RED CELL DISTRIBUTION WIDTH 15.8 % 11.6-14.4 H (BEAKER) (test code = 412) PLATELET COUNT (BEAKER) (test 233 K/CU MM 150-450 code = 756) MEAN PLATELET VOLUME (BEAKER) 10.0 fL 9.4-12.4 (test code = 754) NUCLEATED RED BLOOD CELLS 0 /100 WBC 0-0 (BEAKER) (test code = 413) NEUTROPHILS RELATIVE PERCENT 67 % (BEAKER) (test code = 429) LYMPHOCYTES RELATIVE PERCENT 22 % (BEAKER) (test code = 430) MONOCYTES RELATIVE PERCENT 8 % (BEAKER) (test code = 431) EOSINOPHILS RELATIVE PERCENT 2 % (BEAKER) (test code = 432) BASOPHILS RELATIVE PERCENT 1 % (BEAKER) (test code = 437) NEUTROPHILS ABSOLUTE COUNT 3.78 K/ L 1.78-5.38 (BEAKER) (test code = 670) LYMPHOCYTES ABSOLUTE COUNT 1.25 K/ L 1.32-3.57 L (BEAKER) (test code = 414) MONOCYTES ABSOLUTE COUNT (BEAKER) 0.46 K/ L 0.30-0.82 (test code = 415) EOSINOPHILS ABSOLUTE COUNT 0.09 K/ L 0.04-0.54 (BEAKER) (test code = 416) BASOPHILS ABSOLUTE COUNT (BEAKER) 0.03 K/ L 0.01-0.08 (test code = 417) IMMATURE GRANULOCYTES-RELATIVE 0 % 0-1 PERCENT (BEAKER) (test code = 2801) HEMOGLOBIN AND [id number] 16:50:00 Test Item Value Reference Range Interpretation Comments HEMOGLOBIN (BEAKER) (test code = 7.8 GM/DL 13.7-17.5 L 410) HEMATOCRIT (BEAKER) (test code = 24.5 % 40.1-51.0 L 411) Troponin [id number] 07:07:00 Test Item Value Reference Range Interpretation Comments Troponin I (test code = <0.01 0-0.03 04221-0) ABAD (test code = ABAD) Troponin I (TnI) levels must be interpreted [...] acidosis, acute neurological disease, and persistent tachyarrhythmia. Lab Interpretation (test Normal code = 24104-8) [id number] 07:07:00 Test Item Value Reference Range Interpretation Comments TROPONIN I (BEAKER) (test code = 397) < ng/mL 0.00-0.03 Troponin I (TnI) levels [...] failure, acidosis, acute neurological disease, and persistent tachyarrhythmia.[id number] 07:04:00 Test Item Value Reference Range Interpretation Comments PHOSPHORUS (BEAKER) (test code = 3.0 mg/dL 2.3-4.7 604) [id number] 07:04:00 Test Item Value Reference Range Interpretation Comments MAGNESIUM (BEAKER) (test code = 1.7 mg/dL 1.6-2.6 627) BASIC METABOLIC [id number] 07:04:00 Test Item Value Reference Range Interpretation Comments SODIUM (BEAKER) 139 meq/L 136-145 (test code = 381) POTASSIUM (BEAKER) 4.2 meq/L 3.5-5.1 (test code = 379) CHLORIDE (BEAKER) 111 meq/L 98-107 H (test code = 382) CO2 (BEAKER) (test 22 meq/L 22-29 code = 355) BLOOD UREA NITROGEN 7 mg/dL 7-21 (BEAKER) (test code = 354) CREATININE (BEAKER) 0.58 mg/dL 0.57-1.25 (test code = 358) GLUCOSE RANDOM 79 mg/dL 70-105 (BEAKER) (test code = 652) CALCIUM (BEAKER) 8.0 mg/dL 8.4-10.2 L (test code = 697) EGFR (BEAKER) (test 166 mL/min/1.73 ESTIM ATED GFR IS code = 1092) sq m NOT ACCURATE CREATININE CLEARANCE IN PREDICTING GLOMERULAR FILTRATION RATE . ESTIMATED GFR I S NOT APPLICABLE FOR DIALYSIS PATIEN TS. Lactic acid, [id number] 06:58:00 Test Item Value Reference Range Interpretation Comments Lactate, Venous (test code = 2872) 0.7 mmol/L 0.5-2.2 Lab Interpretation (test code = Normal 13774-1) [facility], [id number] 06:58:00 Test Item Value Reference Range Interpretation Comments LACTATE BLOOD VENOUS (2) (BEAKER) 0.7 mmol/L 0.5-2.2 (test code = 2872) HEMOGLOBIN AND [id number] 06:44:00 Test Item Value Reference Range Interpretation Comments HEMOGLOBIN (BEAKER) (test code = 8.2 GM/DL 13.7-17.5 L 410) HEMATOCRIT (BEAKER) (test code = 25.9 % 40.1-51.0 L 411) CBC W/PLT COUNT & AUTO [id number] 06:44:00 Test Item Value Reference Range Interpretation Comments WHITE BLOOD CELL COUNT (BEAKER) 8.0 K/ L 3.5-10.5 (test code = 775) RED BLOOD CELL COUNT (BEAKER) 2.87 M/ L 4.63-6.08 L (test code = 761) HEMOGLOBIN (BEAKER) (test code = 8.2 GM/DL 13.7-17.5 L 410) HEMATOCRIT (BEAKER) (test code = 25.9 % 40.1-51.0 L 411) MEAN CORPUSCULAR VOLUME (BEAKER) 90.2 fL 79.0-92.2 (test code = 753) MEAN CORPUSCULAR HEMOGLOBIN 28.6 pg 25.7-32.2 (BEAKER) (test code = 751) MEAN CORPUSCULAR HEMOGLOBIN CONC 31.7 GM/DL 32.3-36.5 L (BEAKER) (test code = 752) RED CELL DISTRIBUTION WIDTH 15.4 % 11.6-14.4 H (BEAKER) (test code = 412) PLATELET COUNT (BEAKER) (test 244 K/CU MM 150-450 code = 756) MEAN PLATELET VOLUME (BEAKER) 10.3 fL 9.4-12.4 (test code = 754) NUCLEATED RED BLOOD CELLS 0 /100 WBC 0-0 (BEAKER) (test code = 413) NEUTROPHILS RELATIVE PERCENT 66 % (BEAKER) (test code = 429) LYMPHOCYTES RELATIVE PERCENT 22 % (BEAKER) (test code = 430) MONOCYTES RELATIVE PERCENT 9 % (BEAKER) (test code = 431) EOSINOPHILS RELATIVE PERCENT 2 % (BEAKER) (test code = 432) BASOPHILS RELATIVE PERCENT 1 % (BEAKER) (test code = 437) NEUTROPHILS ABSOLUTE COUNT 5.25 K/ L 1.78-5.38 (BEAKER) (test code = 670) LYMPHOCYTES ABSOLUTE COUNT 1.78 K/ L 1.32-3.57 (BEAKER) (test code = 414) MONOCYTES ABSOLUTE COUNT (BEAKER) 0.73 K/ L 0.30-0.82 (test code = 415) EOSINOPHILS ABSOLUTE COUNT 0.16 K/ L 0.04-0.54 (BEAKER) (test code = 416) BASOPHILS ABSOLUTE COUNT (BEAKER) 0.04 K/ L 0.01-0.08 (test code = 417) IMMATURE GRANULOCYTES-RELATIVE 1 % 0-1 PERCENT (BEAKER) (test code = 2801) TROPONIN [id number] 00:41:00 Test Item Value Reference Range Interpretation Comments TROPONIN I (BEAKER) (test code = 397) < ng/mL 0.00-0.03 Troponin I (TnI) levels [...] failure, acidosis, acute neurological disease, and persistent tachyarrhythmia.ABORH, [id number] 00:38:00 Test Item Value Reference Range Interpretation Comments ABO Grouping (test code = 2588) A Rh Factor (test code = 2589) POS [facility] AND [id number] 00:22:00 Test Item Value Reference Range Interpretation Comments HEMOGLOBIN (BEAKER) (test code = 5.9 GM/DL 13.7-17.5 LL 410) HEMATOCRIT (BEAKER) (test code = 18.8 % 40.1-51.0 L 411) RAD, CHEST, 1 VIEW, NON [id number] 21:37:00Reason for exam:->r/o pulm edemaShould this be [...] lower lobe subsegmental atelectasis. Signed: Debbie Castillo Verified Date/Time: 08/27/2018 21:37:05 Reading Location: [facility] B1 C013W Consult Reading Room XR chest 1 view portable / [id number] 21:37:00Interface, External Ris In - 08/27/2018 9:39 PM CDTFINAL REPORT AP view of the chest dated 08/27/2018 CLINICAL INFORMATION: r/o pulm edema Comment: Heart is normal in size. Pulmonary vasculature is unremarkable. Subsegmental atelectasis is seen in the left lower lobe. The restof the lungs are clear. No pulmonary infiltrate or pleural effusion is present. Impression: Left lower lobe subsegmental atelectasis. Signed: Debbie Castillo MDReport Verified Date/Time: 08/27/2018 21:37: 05 Reading Location: [facility] C013W Consult Reading Room [facility] + Reflex to [id number] 20:28:00 Test Item Value Reference Range Interpretation Comments Color, UA (test code = 5778-6) Yellow Clarity, UA (test code = 5767-9) Clear Specific [place], UA (test code = 1.024 1.001-1.035 5811-5) pH, UA (test code = 5803-2) 7.5 5.0-8.0 Protein, UA (test code = 28976-8) 30 mg/dL Negative A Glucose, UA (test code = 365) Negative Negative Ketones, UA (test code = 2514-8) 40 mg/dL Negative A Bilirubin, UA (test code = 22865-6) Negative Negative Blood, UA (test code = 80181-5) Negative Negative Nitrite, UA (test code = 5802-4) Negative Negative Leukocytes, UA (test code = 5799-2) Trace Negative A Urobilinogen, UA (test code = 0.2 mg/dL 0.2-1 13536-4) RBC, UA (test code = 30795-9) 1 /HPF WBC, UA (test code = 5821-4) 5 /HPF Mucus (test code = 8247-9) Rare Specimen Source (test code = 2795) Lab Interpretation (test code = Abnormal 51677-4) [facility]LEX URINE [id number] 20:28:00 Test Item Value Reference Range Interpretation Comments COLOR (BEAKER) (test code = 470) Yellow CLARITY (BEAKER) (test code = 469) Clear SPECIFIC GRAVITY UA (BEAKER) (test 1.024 1.001-1.035 code = 468) PH UA (BEAKER) (test code = 467) 7.5 5.0-8.0 PROTEIN UA (BEAKER) (test code = 30 mg/dL Negative A 464) GLUCOSE UA (BEAKER) (test code = Negative Negative 365) KETONES UA (BEAKER) (test code = 40 mg/dL Negative A 371) BILIRUBIN UA (BEAKER) (test code = Negative Negative 462) BLOOD UA (BEAKER) (test code = 461) Negative Negative NITRITE UA (BEAKER) (test code = Negative Negative 465) LEUKOCYTE ESTERASE UA (BEAKER) Trace Negative A (test code = 466) UROBILINOGEN UA (BEAKER) (test code 0.2 mg/dL 0.2-1.0 = 463) RBC UA (BEAKER) (test code = 519) 1 /HPF WBC UA (BEAKER) (test code = 520) 5 /HPF MUCUS (BEAKER) (test code = 1574) Rare SOURCE(BEAKER) (test code = 2795) TROPONIN [id number] 19:29:00 Test Item Value Reference Range Interpretation Comments TROPONIN I (BEAKER) (test code = 397) < ng/mL 0.00-0.03 Troponin I (TnI) levels [...] acute neurological disease, and persistent tachyarrhythmia.COMPREHENSIVE METABOLIC [id number] 19:21:00 Test Item Value Reference Range Interpretation Comments TOTAL PROTEIN 5.6 gm/dL 6.0-8.3 L (BEAKER) (test code = 770) ALBUMIN (BEAKER) 2.4 g/dL 3.5-5.0 L (test code = 1145) ALKALINE PHOSPHATASE 78 U/L 40-150 (BEAKER) (test code = 346) BILIRUBIN TOTAL 1.1 mg/dL 0.2-1.2 (BEAKER) (test code = 377) SODIUM (BEAKER) (test 140 meq/L 136-145 code = 381) POTASSIUM (BEAKER) 3.8 meq/L 3.5-5.1 (test code = 379) CHLORIDE (BEAKER) 107 meq/L 98-107 (test code = 382) CO2 (BEAKER) (test 27 meq/L 22-29 code = 355) BLOOD UREA NITROGEN 15 mg/dL 7-21 (BEAKER) (test code = 354) CREATININE (BEAKER) 0.60 mg/dL 0.57-1.25 (test code = 358) GLUCOSE RANDOM 87 mg/dL 70-105 (BEAKER) (test code = 652) CALCIUM (BEAKER) 7.5 mg/dL 8.4-10.2 L (test code = 697) AST (SGOT) (BEAKER) 10 U/L 5-34 (test code = 353) ALT (SGPT) (BEAKER) 6 U/L 6-55 (test code = 347) EGFR (BEAKER) (test 159 ESTIMATE D GFR IS code = 1092) mL/min/1.73 sq NOT ACCURA TE m CREATININE CLEARANCE IN PREDICTING GLOMERULAR FILTRATION RATE . ESTIMATED GFR I S NOT APPLICABLE FOR DIALYSIS PATIEN TS. [id number] 19:09:00 Test Item Value Reference Range Interpretation Comments PHOSPHORUS (BEAKER) (test code = 3.6 mg/dL 2.3-4.7 604) [id number] 19:09:00 Test Item Value Reference Range Interpretation Comments MAGNESIUM (BEAKER) (test code = 1.8 mg/dL 1.6-2.6 627) LACTIC ACID, [id number] 19:03:00 Test Item Value Reference Range Interpretation Comments LACTATE BLOOD VENOUS (2) (BEAKER) 0.9 mmol/L 0.5-2.2 (test code = 2872) [id number] 18:53:00 Test Item Value Reference Range Interpretation Comments Fibrinogen (test code = 3255-7) 418 mg/dl 225-434 Lab Interpretation (test code = Normal 44043-7) [facility]/[id number] 18:53:00 Test Item Value Reference Range Interpretation Comments PROTIME (BEAKER) (test code = 18.1 seconds 11.9-14.2 H 759) INR (BEAKER) (test code = 370) 1.6 <=5.9 Effective 07/03/2018: PT Reference Range ChangeNew: 11.9-14.2 Previous: 11.7- 14.7RECOMMENDED COUMADIN/WARFARIN INR THERAPY RANGESSTANDARD DOSE: 2.0-3.0 Includes: PROPHYLAXIS for venous thrombosis, systemic embolization; TREATMENT for venous thrombosis and/or pulmonary embolus.HIGH RISK: Target INR is2.5-3.5 for patients wiht mechanical heart valves.[id number] 18:53:00 Test Item Value Reference Range Interpretation Comments FIBRINOGEN LEVEL (BEAKER) (test 418 mg/dl 225-434 code = 658) CBC W/PLT COUNT & AUTO [id number] 18:48:00 Test Item Value Reference Range Interpretation Comments WHITE BLOOD CELL COUNT (BEAKER) 8.9 K/ L 3.5-10.5 (test code = 775) RED BLOOD CELL COUNT (BEAKER) 2.29 M/ L 4.63-6.08 L (test code = 761) HEMOGLOBIN (BEAKER) (test code = 6.3 GM/DL 13.7-17.5 L 410) HEMATOCRIT (BEAKER) (test code = 20.6 % 40.1-51.0 L 411) MEAN CORPUSCULAR VOLUME (BEAKER) 90.0 fL 79.0-92.2 (test code = 753) MEAN CORPUSCULAR HEMOGLOBIN 27.5 pg 25.7-32.2 (BEAKER) (test code = 751) MEAN CORPUSCULAR HEMOGLOBIN CONC 30.6 GM/DL 32.3-36.5 L (BEAKER) (test code = 752) RED CELL DISTRIBUTION WIDTH 15.6 % 11.6-14.4 H (BEAKER) (test code = 412) PLATELET COUNT (BEAKER) (test 283 K/CU MM 150-450 code = 756) MEAN PLATELET VOLUME (BEAKER) 10.6 fL 9.4-12.4 (test code = 754) NUCLEATED RED BLOOD CELLS 0 /100 WBC 0-0 (BEAKER) (test code = 413) NEUTROPHILS RELATIVE PERCENT 69 % (BEAKER) (test code = 429) LYMPHOCYTES RELATIVE PERCENT 21 % (BEAKER) (test code = 430) MONOCYTES RELATIVE PERCENT 7 % (BEAKER) (test code = 431) EOSINOPHILS RELATIVE PERCENT 1 % (BEAKER) (test code = 432) BASOPHILS RELATIVE PERCENT 0 % (BEAKER) (test code = 437) NEUTROPHILS ABSOLUTE COUNT 6.15 K/ L 1.78-5.38 H (BEAKER) (test code = 670) LYMPHOCYTES ABSOLUTE COUNT 1.89 K/ L 1.32-3.57 (BEAKER) (test code = 414) MONOCYTES ABSOLUTE COUNT (BEAKER) 0.65 K/ L 0.30-0.82 (test code = 415) EOSINOPHILS ABSOLUTE COUNT 0.12 K/ L 0.04-0.54 (BEAKER) (test code = 416) BASOPHILS ABSOLUTE COUNT (BEAKER) 0.04 K/ L 0.01-0.08 (test code = 417) IMMATURE GRANULOCYTES-RELATIVE 1 % 0-1 PERCENT (BEAKER) (test code = 2801) HEMOGLOBIN AND [id number] 18:44:00 Test Item Value Reference Range Interpretation Comments HEMOGLOBIN (BEAKER) (test code = 6.3 GM/DL 13.7-17.5 L 410) HEMATOCRIT (BEAKER) (test code = 20.6 % 40.1-51.0 L 411) CBC W/PLT COUNT & AUTO [id number] 07:00:00 Test Item Value Reference Range Interpretation Comments WHITE BLOOD CELL COUNT (BEAKER) 7.4 K/ L 3.5-10.5 (test code = 775) RED BLOOD CELL COUNT (BEAKER) 3.18 M/ L 4.63-6.08 L (test code = 761) HEMOGLOBIN (BEAKER) (test code = 9.0 GM/DL 13.7-17.5 L 410) HEMATOCRIT (BEAKER) (test code = 28.3 % 40.1-51.0 L 411) MEAN CORPUSCULAR VOLUME (BEAKER) 89.0 fL 79.0-92.2 (test code = 753) MEAN CORPUSCULAR HEMOGLOBIN 28.3 pg 25.7-32.2 (BEAKER) (test code = 751) MEAN CORPUSCULAR HEMOGLOBIN CONC 31.8 GM/DL 32.3-36.5 L (BEAKER) (test code = 752) RED CELL DISTRIBUTION WIDTH 15.3 % 11.6-14.4 H (BEAKER) (test code = 412) PLATELET COUNT (BEAKER) (test 339 K/CU MM 150-450 code = 756) MEAN PLATELET VOLUME (BEAKER) 10.2 fL 9.4-12.4 (test code = 754) NUCLEATED RED BLOOD CELLS 0 /100 WBC 0-0 (BEAKER) (test code = 413) NEUTROPHILS RELATIVE PERCENT 67 % (BEAKER) (test code = 429) LYMPHOCYTES RELATIVE PERCENT 19 % (BEAKER) (test code = 430) MONOCYTES RELATIVE PERCENT 11 % (BEAKER) (test code = 431) EOSINOPHILS RELATIVE PERCENT 3 % (BEAKER) (test code = 432) BASOPHILS RELATIVE PERCENT 0 % (BEAKER) (test code = 437) NEUTROPHILS ABSOLUTE COUNT 4.94 K/ L 1.78-5.38 (BEAKER) (test code = 670) LYMPHOCYTES ABSOLUTE COUNT 1.38 K/ L 1.32-3.57 (BEAKER) (test code = 414) MONOCYTES ABSOLUTE COUNT (BEAKER) 0.82 K/ L 0.30-0.82 (test code = 415) EOSINOPHILS ABSOLUTE COUNT 0.20 K/ L 0.04-0.54 (BEAKER) (test code = 416) BASOPHILS ABSOLUTE COUNT (BEAKER) 0.02 K/ L 0.01-0.08 (test code = 417) IMMATURE GRANULOCYTES-RELATIVE 1 % 0-1 PERCENT (BEAKER) (test code = 2801) CALCIUM, [id number] 06:20:00 Test Item Value Reference Range Interpretation Comments CALCIUM IONIZED (BEAKER) (test 1.01 mmol/L 1.12-1.27 L code = 698) PH, BLOOD (BEAKER) (test code = 7.50 1810) COMPREHENSIVE METABOLIC [id number] 06:16:00 Test Item Value Reference Range Interpretation Comments TOTAL PROTEIN 5.8 gm/dL 6.0-8.3 L (BEAKER) (test code = 770) ALBUMIN (BEAKER) 2.5 g/dL 3.5-5.0 L (test code = 1145) ALKALINE PHOSPHATASE 56 U/L 40-150 (BEAKER) (test code = 346) BILIRUBIN TOTAL 0.3 mg/dL 0.2-1.2 (BEAKER) (test code = 377) SODIUM (BEAKER) (test 138 meq/L 136-145 code = 381) POTASSIUM (BEAKER) 3.7 meq/L 3.5-5.1 (test code = 379) CHLORIDE (BEAKER) 104 meq/L 98-107 (test code = 382) CO2 (BEAKER) (test 25 meq/L 22-29 code = 355) BLOOD UREA NITROGEN 3 mg/dL 7-21 L (BEAKER) (test code = 354) CREATININE (BEAKER) 0.56 mg/dL 0.57-1.25 L (test code = 358) GLUCOSE RANDOM 82 mg/dL 70-105 (BEAKER) (test code = 652) CALCIUM (BEAKER) 8.1 mg/dL 8.4-10.2 L (test code = 697) AST (SGOT) (BEAKER) 15 U/L 5-34 (test code = 353) ALT (SGPT) (BEAKER) 9 U/L 6-55 (test code = 347) EGFR (BEAKER) (test 172 ESTIMATE D GFR IS code = 1092) mL/min/1.73 sq NOT ACCURA TE m CREATININE CLEARANCE IN PREDICTING GLOMERULAR FILTRATION RATE . ESTIMATED GFR I S NOT APPLICABLE FOR DIALYSIS PATIEN TS. BLOOD [id number] 20:01:00 Test Item Value Reference Range Interpretation Comments CULTURE (BEAKER) (test No growth in 5 days code = 1095) [id number] 06:17:00 Test Item Value Reference Range Interpretation Comments PHOSPHORUS (BEAKER) (test code = 3.5 mg/dL 2.3-4.7 604) [id number] 06:17:00 Test Item Value Reference Range Interpretation Comments MAGNESIUM (BEAKER) (test code = 1.3 mg/dL 1.6-2.6 L 627) BASIC METABOLIC [id number] 06:17:00 Test Item Value Reference Range Interpretation Comments SODIUM (BEAKER) 136 meq/L 136-145 (test code = 381) POTASSIUM (BEAKER) 3.4 meq/L 3.5-5.1 L (test code = 379) CHLORIDE (BEAKER) 104 meq/L 98-107 (test code = 382) CO2 (BEAKER) (test 25 meq/L 22-29 code = 355) BLOOD UREA NITROGEN 3 mg/dL 7-21 L (BEAKER) (test code = 354) CREATININE (BEAKER) 0.55 mg/dL 0.57-1.25 L (test code = 358) GLUCOSE RANDOM 88 mg/dL 70-105 (BEAKER) (test code = 652) CALCIUM (BEAKER) 8.1 mg/dL 8.4-10.2 L (test code = 697) EGFR (BEAKER) (test 176 mL/min/1.73 ESTIM ATED GFR IS code = 1092) sq m NOT ACCURATE CREATININE CLEARANCE IN PREDICTING GLOMERULAR FILTRATION RATE . ESTIMATED GFR I S NOT APPLICABLE FOR DIALYSIS PATIEN TS. CALCIUM, [id number] 05:40:00 Test Item Value Reference Range Interpretation Comments CALCIUM IONIZED (BEAKER) (test 1.02 mmol/L 1.12-1.27 L code = 698) PH, BLOOD (BEAKER) (test code = 7.50 1810) CBC W/PLT COUNT & AUTO [id number] 05:32:00 Test Item Value Reference Range Interpretation Comments WHITE BLOOD CELL COUNT (BEAKER) 8.9 K/ L 3.5-10.5 (test code = 775) RED BLOOD CELL COUNT (BEAKER) 3.07 M/ L 4.63-6.08 L (test code = 761) HEMOGLOBIN (BEAKER) (test code = 8.7 GM/DL 13.7-17.5 L 410) HEMATOCRIT (BEAKER) (test code = 27.5 % 40.1-51.0 L 411) MEAN CORPUSCULAR VOLUME (BEAKER) 89.6 fL 79.0-92.2 (test code = 753) MEAN CORPUSCULAR HEMOGLOBIN 28.3 pg 25.7-32.2 (BEAKER) (test code = 751) MEAN CORPUSCULAR HEMOGLOBIN CONC 31.6 GM/DL 32.3-36.5 L (BEAKER) (test code = 752) RED CELL DISTRIBUTION WIDTH 15.2 % 11.6-14.4 H (BEAKER) (test code = 412) PLATELET COUNT (BEAKER) (test 298 K/CU MM 150-450 code = 756) MEAN PLATELET VOLUME (BEAKER) 10.7 fL 9.4-12.4 (test code = 754) NUCLEATED RED BLOOD CELLS 0 /100 WBC 0-0 (BEAKER) (test code = 413) NEUTROPHILS RELATIVE PERCENT 75 % (BEAKER) (test code = 429) LYMPHOCYTES RELATIVE PERCENT 14 % (BEAKER) (test code = 430) MONOCYTES RELATIVE PERCENT 9 % (BEAKER) (test code = 431) EOSINOPHILS RELATIVE PERCENT 2 % (BEAKER) (test code = 432) BASOPHILS RELATIVE PERCENT 0 % (BEAKER) (test code = 437) NEUTROPHILS ABSOLUTE COUNT 6.64 K/ L 1.78-5.38 H (BEAKER) (test code = 670) LYMPHOCYTES ABSOLUTE COUNT 1.23 K/ L 1.32-3.57 L (BEAKER) (test code = 414) MONOCYTES ABSOLUTE COUNT (BEAKER) 0.82 K/ L 0.30-0.82 (test code = 415) EOSINOPHILS ABSOLUTE COUNT 0.14 K/ L 0.04-0.54 (BEAKER) (test code = 416) BASOPHILS ABSOLUTE COUNT (BEAKER) 0.02 K/ L 0.01-0.08 (test code = 417) IMMATURE GRANULOCYTES-RELATIVE 1 % 0-1 PERCENT (BEAKER) (test code = 2801) COMPREHENSIVE METABOLIC [id number] 07:10:00 Test Item Value Reference Range Interpretation Comments TOTAL PROTEIN 5.4 gm/dL 6.0-8.3 L (BEAKER) (test code = 770) ALBUMIN (BEAKER) 2.4 g/dL 3.5-5.0 L (test code = 1145) ALKALINE PHOSPHATASE 62 U/L 40-150 (BEAKER) (test code = 346) BILIRUBIN TOTAL 0.4 mg/dL 0.2-1.2 (BEAKER) (test code = 377) SODIUM (BEAKER) (test 138 meq/L 136-145 code = 381) POTASSIUM (BEAKER) 3.6 meq/L 3.5-5.1 (test code = 379) CHLORIDE (BEAKER) 105 meq/L 98-107 (test code = 382) CO2 (BEAKER) (test 23 meq/L 22-29 code = 355) BLOOD UREA NITROGEN 4 mg/dL 7-21 L (BEAKER) (test code = 354) CREATININE (BEAKER) 0.59 mg/dL 0.57-1.25 (test code = 358) GLUCOSE RANDOM 90 mg/dL 70-105 (BEAKER) (test code = 652) CALCIUM (BEAKER) 8.0 mg/dL 8.4-10.2 L (test code = 697) AST (SGOT) (BEAKER) 16 U/L 5-34 (test code = 353) ALT (SGPT) (BEAKER) 11 U/L 6-55 (test code = 347) EGFR (BEAKER) (test 162 ESTIMATE D GFR IS code = 1092) mL/min/1.73 sq NOT ACCURA TE m CREATININE CLEARANCE IN PREDICTING GLOMERULAR FILTRATION RATE . ESTIMATED GFR I S NOT APPLICABLE FOR DIALYSIS PATIEN TS. [id number] 06:50:00 Test Item Value Reference Range Interpretation Comments MAGNESIUM (BEAKER) (test code = 1.0 mg/dL 1.6-2.6 LL 627) COMPREHENSIVE METABOLIC [id number] 06:33:00 Test Item Value Reference Range Interpretation Comments TOTAL PROTEIN 5.4 gm/dL 6.0-8.3 L (BEAKER) (test code = 770) ALBUMIN (BEAKER) 2.4 g/dL 3.5-5.0 L (test code = 1145) ALKALINE PHOSPHATASE 70 U/L 40-150 (BEAKER) (test code = 346) BILIRUBIN TOTAL 0.3 mg/dL 0.2-1.2 (BEAKER) (test code = 377) SODIUM (BEAKER) (test 139 meq/L 136-145 code = 381) POTASSIUM (BEAKER) 3.0 meq/L 3.5-5.1 L (test code = 379) CHLORIDE (BEAKER) 106 meq/L 98-107 (test code = 382) CO2 (BEAKER) (test 25 meq/L 22-29 code = 355) BLOOD UREA NITROGEN 3 mg/dL 7-21 L (BEAKER) (test code = 354) CREATININE (BEAKER) 0.57 mg/dL 0.57-1.25 (test code = 358) GLUCOSE RANDOM 93 mg/dL 70-105 (BEAKER) (test code = 652) CALCIUM (BEAKER) 7.8 mg/dL 8.4-10.2 L (test code = 697) AST (SGOT) (BEAKER) 24 U/L 5-34 (test code = 353) ALT (SGPT) (BEAKER) 18 U/L 6-55 (test code = 347) EGFR (BEAKER) (test 169 ESTIMATE D GFR IS code = 1092) mL/min/1.73 sq NOT ACCURA TE m CREATININE CLEARANCE IN PREDICTING GLOMERULAR FILTRATION RATE . ESTIMATED GFR I S NOT APPLICABLE FOR DIALYSIS PATIEN TS. [id number] 06:31:00 Test Item Value Reference Range Interpretation Comments PHOSPHORUS (BEAKER) (test code = 3.3 mg/dL 2.3-4.7 604) CBC W/PLT COUNT & AUTO [id number] 06:23:00 Test Item Value Reference Range Interpretation Comments WHITE BLOOD CELL COUNT (BEAKER) 7.6 K/ L 3.5-10.5 (test code = 775) RED BLOOD CELL COUNT (BEAKER) 3.00 M/ L 4.63-6.08 L (test code = 761) HEMOGLOBIN (BEAKER) (test code = 8.6 GM/DL 13.7-17.5 L 410) HEMATOCRIT (BEAKER) (test code = 26.5 % 40.1-51.0 L 411) MEAN CORPUSCULAR VOLUME (BEAKER) 88.3 fL 79.0-92.2 (test code = 753) MEAN CORPUSCULAR HEMOGLOBIN 28.7 pg 25.7-32.2 (BEAKER) (test code = 751) MEAN CORPUSCULAR HEMOGLOBIN CONC 32.5 GM/DL 32.3-36.5 (BEAKER) (test code = 752) RED CELL DISTRIBUTION WIDTH 14.8 % 11.6-14.4 H (BEAKER) (test code = 412) PLATELET COUNT (BEAKER) (test 273 K/CU MM 150-450 code = 756) MEAN PLATELET VOLUME (BEAKER) 10.7 fL 9.4-12.4 (test code = 754) NUCLEATED RED BLOOD CELLS 0 /100 WBC 0-0 (BEAKER) (test code = 413) NEUTROPHILS RELATIVE PERCENT 73 % (BEAKER) (test code = 429) LYMPHOCYTES RELATIVE PERCENT 14 % (BEAKER) (test code = 430) MONOCYTES RELATIVE PERCENT 13 % (BEAKER) (test code = 431) EOSINOPHILS RELATIVE PERCENT 0 % (BEAKER) (test code = 432) BASOPHILS RELATIVE PERCENT 0 % (BEAKER) (test code = 437) NEUTROPHILS ABSOLUTE COUNT 5.52 K/ L 1.78-5.38 H (BEAKER) (test code = 670) LYMPHOCYTES ABSOLUTE COUNT 1.05 K/ L 1.32-3.57 L (BEAKER) (test code = 414) MONOCYTES ABSOLUTE COUNT (BEAKER) 0.96 K/ L 0.30-0.82 H (test code = 415) EOSINOPHILS ABSOLUTE COUNT 0.01 K/ L 0.04-0.54 L (BEAKER) (test code = 416) BASOPHILS ABSOLUTE COUNT (BEAKER) 0.02 K/ L 0.01-0.08 (test code = 417) IMMATURE GRANULOCYTES-RELATIVE 1 % 0-1 PERCENT (BEAKER) (test code = 2801) LACTIC ACID, [id number] 06:22:00 Test Item Value Reference Range Interpretation Comments LACTATE BLOOD VENOUS (2) (BEAKER) 0.8 mmol/L 0.5-2.2 (test code = 2872) CALCIUM, [id number] 06:18:00 Test Item Value Reference Range Interpretation Comments CALCIUM IONIZED (BEAKER) (test 1.01 mmol/L 1.12-1.27 L code = 698) PH, BLOOD (BEAKER) (test code = 7.46 1810) U/S, ABDOMINAL, [id number] 16:51:00Abdomen limited area? Add comment if clarification [...] well seen.3. No other significant abnormality. Signed: Perez Briones MDReport Verified Date/Time: 07/28/2018 16:51:39 Reading Location: [facility] C013X [facility] Consult Reading Room [id number] 06:56:00 Test Item Value Reference Range Interpretation Comments PHOSPHORUS (BEAKER) (test code = 2.6 mg/dL 2.3-4.7 604) [id number] 06:56:00 Test Item Value Reference Range Interpretation Comments MAGNESIUM (BEAKER) (test code = 1.5 mg/dL 1.6-2.6 L 627) BASIC METABOLIC [id number] 06:56:00 Test Item Value Reference Range Interpretation Comments SODIUM (BEAKER) 139 meq/L 136-145 (test code = 381) POTASSIUM (BEAKER) 3.5 meq/L 3.5-5.1 (test code = 379) CHLORIDE (BEAKER) 107 meq/L 98-107 (test code = 382) CO2 (BEAKER) (test 24 meq/L 22-29 code = 355) BLOOD UREA NITROGEN 6 mg/dL 7-21 L (BEAKER) (test code = 354) CREATININE (BEAKER) 0.61 mg/dL 0.57-1.25 (test code = 358) GLUCOSE RANDOM 91 mg/dL 70-105 (BEAKER) (test code = 652) CALCIUM (BEAKER) 7.9 mg/dL 8.4-10.2 L (test code = 697) EGFR (BEAKER) (test 156 mL/min/1.73 ESTIM ATED GFR IS code = 1092) sq m NOT ACCURATE CREATININE CLEARANCE IN PREDICTING GLOMERULAR FILTRATION RATE . ESTIMATED GFR I S NOT APPLICABLE FOR DIALYSIS PATIEN TS. LACTIC ACID, [id number] 06:49:00 Test Item Value Reference Range Interpretation Comments LACTATE BLOOD VENOUS (2) (BEAKER) 0.7 mmol/L 0.5-2.2 (test code = 2872) CBC W/PLT COUNT & AUTO [id number] 06:31:00 Test Item Value Reference Range Interpretation Comments WHITE BLOOD CELL COUNT (BEAKER) 6.5 K/ L 3.5-10.5 (test code = 775) RED BLOOD CELL COUNT (BEAKER) 3.00 M/ L 4.63-6.08 L (test code = 761) HEMOGLOBIN (BEAKER) (test code = 8.4 GM/DL 13.7-17.5 L 410) HEMATOCRIT (BEAKER) (test code = 27.3 % 40.1-51.0 L 411) MEAN CORPUSCULAR VOLUME (BEAKER) 91.0 fL 79.0-92.2 (test code = 753) MEAN CORPUSCULAR HEMOGLOBIN 28.0 pg 25.7-32.2 (BEAKER) (test code = 751) MEAN CORPUSCULAR HEMOGLOBIN CONC 30.8 GM/DL 32.3-36.5 L (BEAKER) (test code = 752) RED CELL DISTRIBUTION WIDTH 14.7 % 11.6-14.4 H (BEAKER) (test code = 412) PLATELET COUNT (BEAKER) (test 231 K/CU MM 150-450 code = 756) MEAN PLATELET VOLUME (BEAKER) 11.0 fL 9.4-12.4 (test code = 754) NUCLEATED RED BLOOD CELLS 0 /100 WBC 0-0 (BEAKER) (test code = 413) NEUTROPHILS RELATIVE PERCENT 74 % (BEAKER) (test code = 429) LYMPHOCYTES RELATIVE PERCENT 17 % (BEAKER) (test code = 430) MONOCYTES RELATIVE PERCENT 9 % (BEAKER) (test code = 431) EOSINOPHILS RELATIVE PERCENT 0 % (BEAKER) (test code = 432) BASOPHILS RELATIVE PERCENT 0 % (BEAKER) (test code = 437) NEUTROPHILS ABSOLUTE COUNT 4.77 K/ L 1.78-5.38 (BEAKER) (test code = 670) LYMPHOCYTES ABSOLUTE COUNT 1.09 K/ L 1.32-3.57 L (BEAKER) (test code = 414) MONOCYTES ABSOLUTE COUNT (BEAKER) 0.56 K/ L 0.30-0.82 (test code = 415) EOSINOPHILS ABSOLUTE COUNT 0.00 K/ L 0.04-0.54 L (BEAKER) (test code = 416) BASOPHILS ABSOLUTE COUNT (BEAKER) 0.01 K/ L 0.01-0.08 (test code = 417) IMMATURE GRANULOCYTES-RELATIVE 0 % 0-1 PERCENT (BEAKER) (test code = 2801) [id number] 17:59:00 Test Item Value Reference Range Interpretation Comments PHOSPHORUS (BEAKER) (test code = 3.4 mg/dL 2.3-4.7 604) Check Serum Phosphorus level 4 hours after IV phosphorus replacement or 8 hours after PO replacementcompleted.[id number] 17:59:00 Test Item Value Reference Range Interpretation Comments MAGNESIUM (BEAKER) (test code = 1.7 mg/dL 1.6-2.6 627) Check Serum Phosphorus level 4 hours after IV phosphorus replacement or 8 hours after PO replacementcompleted.[id number] 04:50:00 Test Item Value Reference Range Interpretation Comments PHOSPHORUS (BEAKER) (test code = 1.8 mg/dL 2.3-4.7 L 604) [id number] 04:50:00 Test Item Value Reference Range Interpretation Comments MAGNESIUM (BEAKER) (test code = 1.4 mg/dL 1.6-2.6 L 627) BASIC METABOLIC [id number] 04:50:00 Test Item Value Reference Range Interpretation Comments SODIUM (BEAKER) 137 meq/L 136-145 (test code = 381) POTASSIUM (BEAKER) 3.9 meq/L 3.5-5.1 (test code = 379) CHLORIDE (BEAKER) 107 meq/L 98-107 (test code = 382) CO2 (BEAKER) (test 25 meq/L 22-29 code = 355) BLOOD UREA NITROGEN 6 mg/dL 7-21 L (BEAKER) (test code = 354) CREATININE (BEAKER) 0.62 mg/dL 0.57-1.25 (test code = 358) GLUCOSE RANDOM 131 mg/dL 70-105 H (BEAKER) (test code = 652) CALCIUM (BEAKER) 8.0 mg/dL 8.4-10.2 L (test code = 697) EGFR (BEAKER) (test 153 mL/min/1.73 ESTIM ATED GFR IS code = 1092) sq m NOT ACCURATE CREATININE CLEARANCE IN PREDICTING GLOMERULAR FILTRATION RATE . ESTIMATED GFR I S NOT APPLICABLE FOR DIALYSIS PATIEN TS. CBC W/PLT COUNT & AUTO [id number] 04:45:00 Test Item Value Reference Range Interpretation Comments WHITE BLOOD CELL COUNT (BEAKER) 6.0 K/ L 3.5-10.5 (test code = 775) RED BLOOD CELL COUNT (BEAKER) 4.00 M/ L 4.63-6.08 L (test code = 761) HEMOGLOBIN (BEAKER) (test code = 11.3 GM/DL 13.7-17.5 L 410) HEMATOCRIT (BEAKER) (test code = 35.8 % 40.1-51.0 L 411) MEAN CORPUSCULAR VOLUME (BEAKER) 89.5 fL 79.0-92.2 (test code = 753) MEAN CORPUSCULAR HEMOGLOBIN 28.3 pg 25.7-32.2 (BEAKER) (test code = 751) MEAN CORPUSCULAR HEMOGLOBIN CONC 31.6 GM/DL 32.3-36.5 L (BEAKER) (test code = 752) RED CELL DISTRIBUTION WIDTH 14.5 % 11.6-14.4 H (BEAKER) (test code = 412) PLATELET COUNT (BEAKER) (test 167 K/CU MM 150-450 code = 756) MEAN PLATELET VOLUME (BEAKER) 11.1 fL 9.4-12.4 (test code = 754) NUCLEATED RED BLOOD CELLS 0 /100 WBC 0-0 (BEAKER) (test code = 413) NEUTROPHILS RELATIVE PERCENT 88 % (BEAKER) (test code = 429) LYMPHOCYTES RELATIVE PERCENT 7 % (BEAKER) (test code = 430) MONOCYTES RELATIVE PERCENT 4 % (BEAKER) (test code = 431) EOSINOPHILS RELATIVE PERCENT 0 % (BEAKER) (test code = 432) BASOPHILS RELATIVE PERCENT 0 % (BEAKER) (test code = 437) NEUTROPHILS ABSOLUTE COUNT 5.30 K/ L 1.78-5.38 (BEAKER) (test code = 670) LYMPHOCYTES ABSOLUTE COUNT 0.43 K/ L 1.32-3.57 L (BEAKER) (test code = 414) MONOCYTES ABSOLUTE COUNT (BEAKER) 0.24 K/ L 0.30-0.82 L (test code = 415) EOSINOPHILS ABSOLUTE COUNT 0.00 K/ L 0.04-0.54 L (BEAKER) (test code = 416) BASOPHILS ABSOLUTE COUNT (BEAKER) 0.01 K/ L 0.01-0.08 (test code = 417) IMMATURE GRANULOCYTES-RELATIVE 0 % 0-1 PERCENT (BEAKER) (test code = 2801) FL, [id number] 22:28:00Reason for exam:->bile duct stent removalFINAL REPORT Examination: ERCP 4 fluoroscopic spot views were obtained during the procedure by the ordering service. Images are nondiagnostic as no radiologist was present at the time of imaging. Fluoroscopic time was 49.6 seconds. Please see the procedure report for details. Signed: Rosalia Golden MDReport Verified Date/Time: 07/26/2018 22:28:43 Reading Location: [address] Reading Room POCT-GLUCOSE [id number] 20:43:00 Test Item Value Reference Range Interpretation Comments POC-GLUCOSE METER 146 mg/dL 70-110 H TESTED AT [facility] 6720 ([facility]) (test code = FERNANDORAD Mohamud [facility] 1538) [id number] RAPID STREP A [id number] 18:22:00 Test Item Value Reference Range Interpretation Comments STREP A ANTIGEN (BEAKER) (test code Negative = 556) COMPREHENSIVE METABOLIC [id number] 17:37:00 Test Item Value Reference Range Interpretation Comments TOTAL PROTEIN 6.1 gm/dL 6.0-8.3 (BEAKER) (test code = 770) ALBUMIN (BEAKER) 2.6 g/dL 3.5-5.0 L (test code = 1145) ALKALINE PHOSPHATASE 109 U/L 40-150 (BEAKER) (test code = 346) BILIRUBIN TOTAL 0.7 mg/dL 0.2-1.2 (BEAKER) (test code = 377) SODIUM (BEAKER) (test 138 meq/L 136-145 code = 381) POTASSIUM (BEAKER) 3.5 meq/L 3.5-5.1 (test code = 379) CHLORIDE (BEAKER) 104 meq/L 98-107 (test code = 382) CO2 (BEAKER) (test 27 meq/L 22-29 code = 355) BLOOD UREA NITROGEN 6 mg/dL 7-21 L (BEAKER) (test code = 354) CREATININE (BEAKER) 0.65 mg/dL 0.57-1.25 (test code = 358) GLUCOSE RANDOM 115 mg/dL 70-105 H (BEAKER) (test code = 652) CALCIUM (BEAKER) 8.2 mg/dL 8.4-10.2 L (test code = 697) AST (SGOT) (BEAKER) 36 U/L 5-34 H (test code = 353) ALT (SGPT) (BEAKER) 42 U/L 6-55 (test code = 347) EGFR (BEAKER) (test 145 ESTIMATE D GFR IS code = 1092) mL/min/1.73 sq NOT ACCURA TE m CREATININE CLEARANCE IN PREDICTING GLOMERULAR FILTRATION RATE . ESTIMATED GFR I S NOT APPLICABLE FOR DIALYSIS PATIEN TS. CBC W/PLT COUNT & AUTO [id number] 17:16:00 Test Item Value Reference Range Interpretation Comments WHITE BLOOD CELL COUNT (BEAKER) 11.1 K/ L 3.5-10.5 H (test code = 775) RED BLOOD CELL COUNT (BEAKER) 3.44 M/ L 4.63-6.08 L (test code = 761) HEMOGLOBIN (BEAKER) (test code = 9.9 GM/DL 13.7-17.5 L 410) HEMATOCRIT (BEAKER) (test code = 30.6 % 40.1-51.0 L 411) MEAN CORPUSCULAR VOLUME (BEAKER) 89.0 fL 79.0-92.2 (test code = 753) MEAN CORPUSCULAR HEMOGLOBIN 28.8 pg 25.7-32.2 (BEAKER) (test code = 751) MEAN CORPUSCULAR HEMOGLOBIN CONC 32.4 GM/DL 32.3-36.5 (BEAKER) (test code = 752) RED CELL DISTRIBUTION WIDTH 14.6 % 11.6-14.4 H (BEAKER) (test code = 412) PLATELET COUNT (BEAKER) (test 240 K/CU MM 150-450 code = 756) MEAN PLATELET VOLUME (BEAKER) 11.2 fL 9.4-12.4 (test code = 754) NUCLEATED RED BLOOD CELLS 0 /100 WBC 0-0 (BEAKER) (test code = 413) NEUTROPHILS RELATIVE PERCENT 79 % (BEAKER) (test code = 429) LYMPHOCYTES RELATIVE PERCENT 10 % (BEAKER) (test code = 430) MONOCYTES RELATIVE PERCENT 10 % (BEAKER) (test code = 431) EOSINOPHILS RELATIVE PERCENT 0 % (BEAKER) (test code = 432) BASOPHILS RELATIVE PERCENT 0 % (BEAKER) (test code = 437) NEUTROPHILS ABSOLUTE COUNT 8.76 K/ L 1.78-5.38 H (BEAKER) (test code = 670) LYMPHOCYTES ABSOLUTE COUNT 1.09 K/ L 1.32-3.57 L (BEAKER) (test code = 414) MONOCYTES ABSOLUTE COUNT (BEAKER) 1.11 K/ L 0.30-0.82 H (test code = 415) EOSINOPHILS ABSOLUTE COUNT 0.04 K/ L 0.04-0.54 (BEAKER) (test code = 416) BASOPHILS ABSOLUTE COUNT (BEAKER) 0.01 K/ L 0.01-0.08 (test code = 417) IMMATURE GRANULOCYTES-RELATIVE 1 % 0-1 PERCENT (BEAKER) (test code = 2801) POCT-GLUCOSE [id number] 12:06:00 Test Item Value Reference Range Interpretation Comments POC-GLUCOSE METER 132 mg/dL 70-110 H TESTED AT [place] [address] (BEAKER) (test code = [facility] 1538) [id number] POCT-GLUCOSE [id number] 08:57:00 Test Item Value Reference Range Interpretation Comments POC-GLUCOSE METER 80 mg/dL 70-110 [facility] [place] [address] [facility] (test code = [facility] [id number] 1538) BASIC METABOLIC [id number] 06:35:00 Test Item Value Reference Range Interpretation Comments SODIUM (BEAKER) 136 meq/L 136-145 (test code = 381) POTASSIUM (BEAKER) 3.4 meq/L 3.5-5.1 L (test code = 379) CHLORIDE (BEAKER) 101 meq/L 98-107 (test code = 382) CO2 (BEAKER) (test 26 meq/L 22-29 code = 355) BLOOD UREA NITROGEN 6 mg/dL 7-21 L (BEAKER) (test code = 354) CREATININE (BEAKER) 0.64 mg/dL 0.57-1.25 (test code = 358) GLUCOSE RANDOM 80 mg/dL 70-105 (BEAKER) (test code = 652) CALCIUM (BEAKER) 8.5 mg/dL 8.4-10.2 (test code = 697) EGFR (BEAKER) (test 148 mL/min/1.73 ESTIM ATED GFR IS code = 1092) sq m NOT ACCURATE CREATININE CLEARANCE IN PREDICTING GLOMERULAR FILTRATION RATE . ESTIMATED GFR I S NOT APPLICABLE FOR DIALYSIS PATIEN TS. POCT-GLUCOSE [id number] 22:36:00 Test Item Value Reference Range Interpretation Comments POC-GLUCOSE METER 72 mg/dL 70-110 TESTED AT [place] [address] [facility] (test code = [facility] [address] 1538) POCT-GLUCOSE [id number] 12:21:00 Test Item Value Reference Range Interpretation Comments POC-GLUCOSE METER 82 mg/dL 70-110 TESTED AT [place] [address] ([facility]) (test code = [facility] [address] 1538) BASIC METABOLIC [id number] 09:30:00 Test Item Value Reference Range Interpretation Comments SODIUM (BEAKER) 137 meq/L 136-145 (test code = 381) POTASSIUM (BEAKER) 3.8 meq/L 3.5-5.1 (test code = 379) CHLORIDE (BEAKER) 103 meq/L 98-107 (test code = 382) CO2 (BEAKER) (test 28 meq/L 22-29 code = 355) BLOOD UREA NITROGEN 7 mg/dL 7-21 (BEAKER) (test code = 354) CREATININE (BEAKER) 0.61 mg/dL 0.57-1.25 (test code = 358) GLUCOSE RANDOM 90 mg/dL 70-105 (BEAKER) (test code = 652) CALCIUM (BEAKER) 8.2 mg/dL 8.4-10.2 L (test code = 697) EGFR (BEAKER) (test 156 mL/min/1.73 ESTIM ATED GFR IS code = 1092) sq m NOT ACCURATE CREATININE CLEARANCE IN PREDICTING GLOMERULAR FILTRATION RATE . ESTIMATED GFR I S NOT APPLICABLE FOR DIALYSIS PATIEN TS. POCT-GLUCOSE [id number] 08:42:00 Test Item Value Reference Range Interpretation Comments POC-GLUCOSE METER 85 mg/dL 70-110 TESTED AT [place] [address] [facility] (test code = [facility] [address] 1538) POCT-GLUCOSE [id number] 21:33:00 Test Item Value Reference Range Interpretation Comments POC-GLUCOSE METER 106 mg/dL 70-110 TESTED AT [place] [address] (BEAKER) (test code = CHANTE Mohamud [place] 1538) [id number] POCT-GLUCOSE [id number] 17:42:00 Test Item Value Reference Range Interpretation Comments POC-GLUCOSE METER 95 mg/dL 70-110 TESTED AT [place] [address] (BEAKER) (test code = CHAN[place] Mohamud [facility] [address] 1538) [id number] 14:42:00 Test Item Value Reference Range Interpretation Comments POTASSIUM (BEAKER) 3.7 meq/L 3.5-5.1 Specimen slightly (test code = 379) hemolyzed Check Serum Potassium level 2 hours after oral potassium replacement completed or 30 min after intravenous potassium replacement.POCT-GLUCOSE [id number] 11:45:00 Test Item Value Reference Range Interpretation Comments POC-GLUCOSE METER 151 mg/dL 70-110 H TESTED AT [place] [address] [facility] (test code = [place] Mohamud [facility] 1538) [id number] POCT-GLUCOSE [id number] 09:45:00 Test Item Value Reference Range Interpretation Comments POC-GLUCOSE METER 127 mg/dL 70-110 H TESTED AT [place] [address] ([facility] (test code = [facility] Mohamud [facility] 1538) [address] BLOOD [id number] 08:00:00 Test Item Value Reference Range Interpretation Comments CULTURE (BEAKER) (test No growth in 5 days code = 1095) BLOOD [id number] 08:00:00 Test Item Value Reference Range Interpretation Comments CULTURE (BEAKER) (test No growth in 5 days code = 1095) BASIC METABOLIC [id number] 06:48:00 Test Item Value Reference Range Interpretation Comments SODIUM (BEAKER) 139 meq/L 136-145 (test code = 381) POTASSIUM (BEAKER) 3.2 meq/L 3.5-5.1 L (test code = 379) CHLORIDE (BEAKER) 104 meq/L 98-107 (test code = 382) CO2 (BEAKER) (test 28 meq/L 22-29 code = 355) BLOOD UREA NITROGEN 7 mg/dL 7-21 (BEAKER) (test code = 354) CREATININE (BEAKER) 0.61 mg/dL 0.57-1.25 (test code = 358) GLUCOSE RANDOM 88 mg/dL 70-105 ([facility]) (test code = 652) CALCIUM (BEAKER) 7.9 mg/dL 8.4-10.2 L (test code = 697) EGFR (BEAKER) (test 156 mL/min/1.73 ESTIM ATED GFR IS code = 1092) sq m NOT ACCURATE CREATININE CLEARANCE IN PREDICTING GLOMERULAR FILTRATION RATE . ESTIMATED GFR I S NOT APPLICABLE FOR DIALYSIS PATIEN TS. [id number] 06:46:00 Test Item Value Reference Range Interpretation Comments PHOSPHORUS (BEAKER) (test code = 3.5 mg/dL 2.3-4.7 604) [id number] 06:46:00 Test Item Value Reference Range Interpretation Comments MAGNESIUM (BEAKER) (test code = 1.7 mg/dL 1.6-2.6 627) CALCIUM, [id number] 06:45:00 Test Item Value Reference Range Interpretation Comments CALCIUM IONIZED ([facility]) (test 1.00 mmol/L 1.12-1.27 L code = 698) PH, BLOOD ([facility]) (test code = 7.52 1810) POCT-GLUCOSE [id number] 21:56:00 Test Item Value Reference Range Interpretation Comments POC-GLUCOSE METER 112 mg/dL 70-110 H TESTED AT [place] [address] ([facility]) (test code = [facility] 1538) [address] POCT-GLUCOSE [id number] 17:46:00 Test Item Value Reference Range Interpretation Comments POC-GLUCOSE METER 86 mg/dL 70-110 TESTED AT [place] [address] ([facility]) (test code = [facility] [address] 1538) POCT-GLUCOSE [id number] 11:20:00 Test Item Value Reference Range Interpretation Comments POC-GLUCOSE METER 164 mg/dL 70-110 H TESTED AT [place] [address] ([facility]) (test code = [facility] 1538) [address] POCT-GLUCOSE [id number] 08:57:00 Test Item Value Reference Range Interpretation Comments POC-GLUCOSE METER 88 mg/dL 70-110 TESTED AT [place] [address] ([facility]) (test code = [facility] [address] 1538) CALCIUM, [id number] 05:14:00 Test Item Value Reference Range Interpretation Comments CALCIUM IONIZED (BEAKER) (test 1.12 mmol/L 1.12-1.27 code = 698) PH, BLOOD (BEAKER) (test code = 7.43 1810) BASIC METABOLIC [id number] 04:59:00 Test Item Value Reference Range Interpretation Comments SODIUM (BEAKER) 140 meq/L 136-145 (test code = 381) POTASSIUM (BEAKER) 3.3 meq/L 3.5-5.1 L (test code = 379) CHLORIDE (BEAKER) 107 meq/L 98-107 (test code = 382) CO2 (BEAKER) (test 28 meq/L 22-29 code = 355) BLOOD UREA NITROGEN 10 mg/dL 7-21 (BEAKER) (test code = 354) CREATININE (BEAKER) 0.64 mg/dL 0.57-1.25 (test code = 358) GLUCOSE RANDOM 99 mg/dL 70-105 (BEAKER) (test code = 652) CALCIUM (BEAKER) 7.5 mg/dL 8.4-10.2 L (test code = 697) EGFR (BEAKER) (test 148 mL/min/1.73 ESTIM ATED GFR IS code = 1092) sq m NOT ACCURATE CREATININE CLEARANCE IN PREDICTING GLOMERULAR FILTRATION RATE . ESTIMATED GFR I S NOT APPLICABLE FOR DIALYSIS PATIEN TS. [id number] 04:57:00 Test Item Value Reference Range Interpretation Comments MAGNESIUM (BEAKER) (test code = 1.8 mg/dL 1.6-2.6 627) [id number] 04:56:00 Test Item Value Reference Range Interpretation Comments PHOSPHORUS (BEAKER) (test code = 3.4 mg/dL 2.3-4.7 604) [id number] 04:54:00 Test Item Value Reference Range Interpretation Comments PROTIME (BEAKER) (test code = 17.0 seconds 11.9-14.2 H 759) INR (BEAKER) (test code = 370) 1.5 <=5.9 PARTIAL THROMBOPLASTIN TIME 34.1 seconds 22.5-36.0 (BEAKER) (test code = 760) Effective 07/03/2018: PT Reference Range ChangeNew: 11.9-14.2 Previous: 11.7- 14.7RECOMMENDED COUMADIN/WARFARIN INR THERAPY RANGESSTANDARD DOSE: 2.0-3.0 Includes: PROPHYLAXIS for venous thrombosis, systemic embolization; TREATMENT for venous thrombosis and/or pulmonary embolus.HIGH RISK: Target INR is2.5-3.5 for patients wiht mechanical heart valves.PROTHROMBIN [id number] 04:52:00 Test Item Value Reference Range Interpretation Comments PROTIME (BEAKER) (test code = 17.0 seconds 11.9-14.2 H 759) INR (BEAKER) (test code = 370) 1.5 <=5.9 Effective 07/03/2018: PT Reference Range ChangeNew: 11.9-14.2 Previous: 11.7- 14.7RECOMMENDED COUMADIN/WARFARIN INR THERAPY RANGESSTANDARD DOSE: 2.0-3.0 Includes: PROPHYLAXIS for venous thrombosis, systemic embolization; TREATMENT for venous thrombosis and/or pulmonary embolus.HIGH RISK: Target INR is2.5-3.5 for patients wiht mechanical heart valves.CBC W/PLT COUNT & AUTO [id number] 04:47:00 Test Item Value Reference Range Interpretation Comments WHITE BLOOD CELL COUNT (BEAKER) 8.1 K/ L 3.5-10.5 (test code = 775) RED BLOOD CELL COUNT (BEAKER) 3.62 M/ L 4.63-6.08 L (test code = 761) HEMOGLOBIN (BEAKER) (test code = 10.5 GM/DL 13.7-17.5 L 410) HEMATOCRIT (BEAKER) (test code = 32.5 % 40.1-51.0 L 411) MEAN CORPUSCULAR VOLUME (BEAKER) 89.8 fL 79.0-92.2 (test code = 753) MEAN CORPUSCULAR HEMOGLOBIN 29.0 pg 25.7-32.2 (BEAKER) (test code = 751) MEAN CORPUSCULAR HEMOGLOBIN CONC 32.3 GM/DL 32.3-36.5 (BEAKER) (test code = 752) RED CELL DISTRIBUTION WIDTH 13.7 % 11.6-14.4 (BEAKER) (test code = 412) PLATELET COUNT (BEAKER) (test 339 K/CU MM 150-450 code = 756) MEAN PLATELET VOLUME (BEAKER) 10.7 fL 9.4-12.4 (test code = 754) NUCLEATED RED BLOOD CELLS 0 /100 WBC 0-0 (BEAKER) (test code = 413) NEUTROPHILS RELATIVE PERCENT 69 % (BEAKER) (test code = 429) LYMPHOCYTES RELATIVE PERCENT 23 % (BEAKER) (test code = 430) MONOCYTES RELATIVE PERCENT 7 % (BEAKER) (test code = 431) EOSINOPHILS RELATIVE PERCENT 0 % (BEAKER) (test code = 432) BASOPHILS RELATIVE PERCENT 0 % (BEAKER) (test code = 437) NEUTROPHILS ABSOLUTE COUNT 5.62 K/ L 1.78-5.38 H (BEAKER) (test code = 670) LYMPHOCYTES ABSOLUTE COUNT 1.88 K/ L 1.32-3.57 (BEAKER) (test code = 414) MONOCYTES ABSOLUTE COUNT (BEAKER) 0.60 K/ L 0.30-0.82 (test code = 415) EOSINOPHILS ABSOLUTE COUNT 0.00 K/ L 0.04-0.54 L (BEAKER) (test code = 416) BASOPHILS ABSOLUTE COUNT (BEAKER) 0.00 K/ L 0.01-0.08 L (test code = 417) IMMATURE GRANULOCYTES-RELATIVE 1 % 0-1 PERCENT (BEAKER) (test code = 2801) POCT-GLUCOSE [id number] 22:08:00 Test Item Value Reference Range Interpretation Comments POC-GLUCOSE METER 133 mg/dL 70-110 H TESTED AT [place] [address] ([facility]) (test code = CHANTE Mohamud [facility] 1538) [id number] POCT-GLUCOSE [id number] 18:34:00 Test Item Value Reference Range Interpretation Comments POC-GLUCOSE METER 151 mg/dL 70-110 H TESTED AT [place] [address] ([facility]) (test code = CHANTE Mohamud [facility] 1538) [id number] POCT-GLUCOSE [id number] 12:29:00 Test Item Value Reference Range Interpretation Comments POC-GLUCOSE METER 124 mg/dL 70-110 H TESTED AT [place] [address] ([facility]) [facility] = [facility] 1538) [address] RAD, CHEST, 1 VIEW, NON [id number] 10:57:00Reason for exam:->SOBShould this be performed at [...] The regional osseous structures are unremarkable. Signed: Jessica Noel MDReport Verified Date/Time: 07/15/2018 10:57:23 Reading Location: [facility] Radiology Reading Room C. DIFFICILE GDH [id number] 10:08:00 Test Item Value Reference Range Interpretation Comments CDT TOXIN (test code Negative Negative = [id number]) CDT GDH ANTIGEN (test Negative Negative No ind ication of code = [id number]) Clostridi um difficile infection and n o colonization. Discontinue ent starla isolation and t herapy. Testing performed by [employer] Rapid Cassette Assay. For GDH, published sensitivity of the assay is 98.7% compared to cytotoxicity testing. For Toxin AB, published sensitivity is 87.8% and specificity 99.4% compared to cytotoxicity testing.Verification of kit performance was done by the [facility] Microbiology Lab prior to clinical use.POCT-GLUCOSE [id number] 08:57:00 Test Item Value Reference Range Interpretation Comments POC-GLUCOSE METER 159 mg/dL 70-110 H TESTED AT [facility] 6720 (BEAKER) (test code = CHANTE Mohamud [place] 1538) [id number] BLOOD [id number] 08:01:00 Test Item Value Reference Range Interpretation Comments CULTURE (BEAKER) (test No growth in 5 days code = 1095) BLOOD [id number] 08:01:00 Test Item Value Reference Range Interpretation Comments CULTURE (BEAKER) (test No growth in 5 days code = 1095) BASIC METABOLIC [id number] 04:49:00 Test Item Value Reference Range Interpretation Comments SODIUM (BEAKER) 137 meq/L 136-145 (test code = 381) POTASSIUM (BEAKER) 3.9 meq/L 3.5-5.1 (test code = 379) CHLORIDE (BEAKER) 107 meq/L 98-107 (test code = 382) CO2 (BEAKER) (test 24 meq/L 22-29 code = 355) BLOOD UREA NITROGEN 8 mg/dL 7-21 (BEAKER) (test code = 354) CREATININE (BEAKER) 0.61 mg/dL 0.57-1.25 (test code = 358) GLUCOSE RANDOM 143 mg/dL 70-105 H (BEAKER) (test code = 652) CALCIUM (BEAKER) 7.4 mg/dL 8.4-10.2 L (test code = 697) EGFR (BEAKER) (test 156 mL/min/1.73 ESTIM ATED GFR IS code = 1092) sq m NOT ACCURATE CREATININE CLEARANCE IN PREDICTING GLOMERULAR FILTRATION RATE . ESTIMATED GFR I S NOT APPLICABLE FOR DIALYSIS PATIEN TS. [id number] 04:29:00 Test Item Value Reference Range Interpretation Comments PHOSPHORUS (BEAKER) (test code = 2.7 mg/dL 2.3-4.7 604) [id number] 04:29:00 Test Item Value Reference Range Interpretation Comments MAGNESIUM (BEAKER) (test code = 2.2 mg/dL 1.6-2.6 627) CBC W/PLT COUNT & AUTO [id number] 04:14:00 Test Item Value Reference Range Interpretation Comments WHITE BLOOD CELL COUNT (BEAKER) 8.5 K/ L 3.5-10.5 (test code = 775) RED BLOOD CELL COUNT (BEAKER) 3.45 M/ L 4.63-6.08 L (test code = 761) HEMOGLOBIN (BEAKER) (test code = 9.9 GM/DL 13.7-17.5 L 410) HEMATOCRIT (BEAKER) (test code = 30.8 % 40.1-51.0 L 411) MEAN CORPUSCULAR VOLUME (BEAKER) 89.3 fL 79.0-92.2 (test code = 753) MEAN CORPUSCULAR HEMOGLOBIN 28.7 pg 25.7-32.2 (BEAKER) (test code = 751) MEAN CORPUSCULAR HEMOGLOBIN CONC 32.1 GM/DL 32.3-36.5 L (BEAKER) (test code = 752) RED CELL DISTRIBUTION WIDTH 13.8 % 11.6-14.4 (BEAKER) (test code = 412) PLATELET COUNT (BEAKER) (test 317 K/CU MM 150-450 code = 756) MEAN PLATELET VOLUME (BEAKER) 11.0 fL 9.4-12.4 (test code = 754) NUCLEATED RED BLOOD CELLS 0 /100 WBC 0-0 (BEAKER) (test code = 413) NEUTROPHILS RELATIVE PERCENT 84 % (BEAKER) (test code = 429) LYMPHOCYTES RELATIVE PERCENT 13 % (BEAKER) (test code = 430) MONOCYTES RELATIVE PERCENT 3 % (BEAKER) (test code = 431) EOSINOPHILS RELATIVE PERCENT 0 % (BEAKER) (test code = 432) BASOPHILS RELATIVE PERCENT 0 % (BEAKER) (test code = 437) NEUTROPHILS ABSOLUTE COUNT 7.13 K/ L 1.78-5.38 H (BEAKER) (test code = 670) LYMPHOCYTES ABSOLUTE COUNT 1.06 K/ L 1.32-3.57 L (BEAKER) (test code = 414) MONOCYTES ABSOLUTE COUNT (BEAKER) 0.25 K/ L 0.30-0.82 L (test code = 415) EOSINOPHILS ABSOLUTE COUNT 0.00 K/ L 0.04-0.54 L (BEAKER) (test code = 416) BASOPHILS ABSOLUTE COUNT (BEAKER) 0.00 K/ L 0.01-0.08 L (test code = 417) IMMATURE GRANULOCYTES-RELATIVE 1 % 0-1 PERCENT (BEAKER) (test code = 2801) CALCIUM, [id number] 03:58:00 Test Item Value Reference Range Interpretation Comments CALCIUM IONIZED (BEAKER) (test 1.11 mmol/L 1.12-1.27 L code = 698) PH, BLOOD (BEAKER) (test code = 7.41 1810) POCT-GLUCOSE [id number] 23:20:00 Test Item Value Reference Range Interpretation Comments POC-GLUCOSE METER 208 mg/dL 70-110 H TESTED AT [facility] 6720 (BEAKER) (test code = [place] 1537) [id number] BASIC METABOLIC [id number] 18:01:00 Test Item Value Reference Range Interpretation Comments SODIUM (BEAKER) 139 meq/L 136-145 (test code = 381) POTASSIUM (BEAKER) 3.8 meq/L 3.5-5.1 (test code = 379) CHLORIDE (BEAKER) 108 meq/L 98-107 H (test code = 382) CO2 (BEAKER) (test 26 meq/L 22-29 code = 355) BLOOD UREA NITROGEN 8 mg/dL 7-21 (BEAKER) (test code = 354) CREATININE (BEAKER) 0.66 mg/dL 0.57-1.25 (test code = 358) GLUCOSE RANDOM 157 mg/dL 70-105 H (BEAKER) (test code = 652) CALCIUM (BEAKER) 7.7 mg/dL 8.4-10.2 L (test code = 697) EGFR (BEAKER) (test 143 mL/min/1.73 ESTIM ATED GFR IS code = 1092) sq m NOT ACCURATE CREATININE CLEARANCE IN PREDICTING GLOMERULAR FILTRATION RATE . ESTIMATED GFR I S NOT APPLICABLE FOR DIALYSIS PATIANAYA TS. [id number] 18:00:00 Test Item Value Reference Range Interpretation Comments TRIGLYCERIDES (BEAKER) (test code = 125 mg/dL 540) TRIGLYCERIDE REFERENCE RANGELow Risk <150Borderline Risk 150-199High Risk 200-499Very High Risk>=[id number] 18:00:00 Test Item Value Reference Range Interpretation Comments MAGNESIUM (BEAKER) (test code = 1.6 mg/dL 1.6-2.6 627) CALCIUM, [id number] 17:46:00 Test Item Value Reference Range Interpretation Comments CALCIUM IONIZED (BEAKER) (test 1.13 mmol/L 1.12-1.27 code = 698) PH, BLOOD (BEAKER) (test code = 7.41 1810) POCT-GLUCOSE [id number] 17:45:00 Test Item Value Reference Range Interpretation Comments POC-GLUCOSE METER 173 mg/dL 70-110 H TESTED AT [facility] 6720 (BEAKER) (test code = [facility] 1538) [id number] POCT-GLUCOSE [id number] 11:46:00 Test Item Value Reference Range Interpretation Comments POC-GLUCOSE METER 163 mg/dL 70-110 H TESTED AT [facility] 6720 (BEAKER) (test code = [facility] 1538) [address] BASIC METABOLIC [id number] 09:43:00 Test Item Value Reference Range Interpretation Comments SODIUM (BEAKER) 140 meq/L 136-145 (test code = 381) POTASSIUM (BEAKER) 3.3 meq/L 3.5-5.1 L (test code = 379) CHLORIDE (BEAKER) 108 meq/L 98-107 H (test code = 382) CO2 (BEAKER) (test 27 meq/L 22-29 code = 355) BLOOD UREA NITROGEN 9 mg/dL 7-21 (BEAKER) (test code = 354) CREATININE (BEAKER) 0.65 mg/dL 0.57-1.25 (test code = 358) GLUCOSE RANDOM 151 mg/dL 70-105 H (BEAKER) (test code = 652) CALCIUM (BEAKER) 7.7 mg/dL 8.4-10.2 L (test code = 697) EGFR (BEAKER) (test 145 mL/min/1.73 ESTIM ATED GFR IS code = 1092) sq m NOT ACCURATE CREATININE CLEARANCE IN PREDICTING GLOMERULAR FILTRATION RATE . ESTIMATED GFR I S NOT APPLICABLE FOR DIALYSIS PATIEN TS. HEPATIC FUNCTION [id number] 09:43:00 Test Item Value Reference Range Interpretation Comments TOTAL PROTEIN (BEAKER) (test code = 5.1 gm/dL 6.0-8.3 L 770) ALBUMIN (BEAKER) (test code = 1145) 2.3 g/dL 3.5-5.0 L BILIRUBIN TOTAL (BEAKER) (test code 0.3 mg/dL 0.2-1.2 = 377) BILIRUBIN DIRECT (BEAKER) (test 0.3 mg/dL 0.1-0.5 code = 706) ALKALINE PHOSPHATASE (BEAKER) (test 57 U/L 40-150 code = 346) AST (SGOT) (BEAKER) (test code = 11 U/L 5-34 353) ALT (SGPT) (BEAKER) (test code = < U/L 6-55 L 347) CALCIUM, [id number] 09:39:00 Test Item Value Reference Range Interpretation Comments CALCIUM IONIZED (BEAKER) (test 1.07 mmol/L 1.12-1.27 L code = 698) PH, BLOOD (BEAKER) (test code = 7.44 1810) [id number] 09:26:00 Test Item Value Reference Range Interpretation Comments PHOSPHORUS (BEAKER) (test code = 2.3 mg/dL 2.3-4.7 604) [id number] 09:26:00 Test Item Value Reference Range Interpretation Comments MAGNESIUM (BEAKER) (test code = 1.2 mg/dL 1.6-2.6 L 627) CBC W/PLT COUNT & AUTO [id number] 09:07:00 Test Item Value Reference Range Interpretation Comments WHITE BLOOD CELL COUNT (BEAKER) 13.5 K/ L 3.5-10.5 H (test code = 775) RED BLOOD CELL COUNT (BEAKER) 3.62 M/ L 4.63-6.08 L (test code = 761) HEMOGLOBIN (BEAKER) (test code = 10.4 GM/DL 13.7-17.5 L 410) HEMATOCRIT (BEAKER) (test code = 32.1 % 40.1-51.0 L 411) MEAN CORPUSCULAR VOLUME (BEAKER) 88.7 fL 79.0-92.2 (test code = 753) MEAN CORPUSCULAR HEMOGLOBIN 28.7 pg 25.7-32.2 (BEAKER) (test code = 751) MEAN CORPUSCULAR HEMOGLOBIN CONC 32.4 GM/DL 32.3-36.5 (BEAKER) (test code = 752) RED CELL DISTRIBUTION WIDTH 13.6 % 11.6-14.4 (BEAKER) (test code = 412) PLATELET COUNT (BEAKER) (test 323 K/CU MM 150-450 code = 756) MEAN PLATELET VOLUME (BEAKER) 11.0 fL 9.4-12.4 (test code = 754) NUCLEATED RED BLOOD CELLS 0 /100 WBC 0-0 (BEAKER) (test code = 413) NEUTROPHILS RELATIVE PERCENT 87 % (BEAKER) (test code = 429) LYMPHOCYTES RELATIVE PERCENT 8 % (BEAKER) (test code = 430) MONOCYTES RELATIVE PERCENT 5 % (BEAKER) (test code = 431) EOSINOPHILS RELATIVE PERCENT 0 % (BEAKER) (test code = 432) BASOPHILS RELATIVE PERCENT 0 % (BEAKER) (test code = 437) NEUTROPHILS ABSOLUTE COUNT 11.73 K/ L 1.78-5.38 H (BEAKER) (test code = 670) LYMPHOCYTES ABSOLUTE COUNT 1.06 K/ L 1.32-3.57 L (BEAKER) (test code = 414) MONOCYTES ABSOLUTE COUNT (BEAKER) 0.62 K/ L 0.30-0.82 (test code = 415) EOSINOPHILS ABSOLUTE COUNT 0.00 K/ L 0.04-0.54 L ([facility]) (test code = 416) BASOPHILS ABSOLUTE COUNT ([facility]) 0.01 K/ L 0.01-0.08 (test code = 417) IMMATURE GRANULOCYTES-RELATIVE 1 % 0-1 PERCENT ([facility]) (test code = 2801) POCT-GLUCOSE [id number] 06:10:00 Test Item Value Reference Range Interpretation Comments POC-GLUCOSE METER 170 mg/dL 70-110 H TESTED AT [place] [address] ([facility]) (test code = CHANTE Mohamud [facility] 1538) [address] POCT-GLUCOSE [id number] 23:12:00 Test Item Value Reference Range Interpretation Comments POC-GLUCOSE METER 200 mg/dL 70-110 H TESTED AT [place] [address] ([facility]) (test code = CHANTE Mohamud [facility] 1538) [address] POCT-GLUCOSE [id number] 18:28:00 Test Item Value Reference Range Interpretation Comments POC-GLUCOSE METER 153 mg/dL 70-110 H TESTED AT [place] [address] ([facility]) (test code = FERNANDOOR Cade [facility] 1538) [address] RAD, CHEST, 1 VIEW, NON [id number] 17:19:00Reason for exam:->post central lineShould this be [...] over the right atrium withno pneumothorax. Signed: Perez Briones Verified Date/Time: 07/13/2018 17:19:17 Reading Location: [address] Reading Room POCT- GLUCOSE [id number] 11:45:00 Test Item Value Reference Range Interpretation Comments POC-GLUCOSE METER 214 mg/dL 70-110 H TESTED AT [facility] 6720 (TAI) (test code = [place] [facility] 1538) [address] CT, [id number] 09:34:00NO PO or IV contrastFINAL REPORT CT [...] whichcould be related to an enteritis. Signed: Perez Brioneseport Verified Date/Time: 07/13/2018 09:34:48 Reading Location: [facility] [id number] [facility] Consult Reading Room POCT-GLUCOSE [id number] 06:40:00 Test Item Value Reference Range Interpretation Comments POC-GLUCOSE METER 189 mg/dL 70-110 H TESTED AT [place] [address] ([facility]) (test code = [place] 1538) [address] RAD, CHEST, 1 VIEW, NON [id number] 01:21:00Reason for exam:->hypoxia, feverShould this be performed [...] MDReport Verified Date/Time: 07/13/2018 01:21:43 Reading Location: [address] Reading Room RAD, CHEST, 1 VIEW, NON [id number] 00:42:00Reason for exam:- >tachycardiaShould this be performed at the bedside?->YesFINAL REPORT RAD, CHEST, 1 VIEW, NON DEPT INDICATION: tachycardia COMPARISON:Prior day's exam FINDINGS: Portable frontal view of the chest. IMPRESSION: Lungs and pleura: Unchanged retrocardiac airspace opacity and layering small left pleural effusion when allowing for differences in technique.. No pneumothorax.Heart and mediastinum: Stable contours. Additional findings: Pigtail catheter overlies the left upper quadrant. Signed: Lu Darden Verified Date/Time: 07/13/2018 00:42:23 POCT-GLUCOSE METER 2018-07-12 23:31:00 Test Item Value Reference Range Interpretation Comments POC-GLUCOSE METER 139 mg/dL 70-110 H TESTED AT [place] [address] ([facility]) (test code = CHANTE Mohamud [facility] 1538) [address] POCT-GLUCOSE [id number] 18:37:00 Test Item Value Reference Range Interpretation Comments POC-GLUCOSE METER 108 mg/dL 70-110 TESTED AT [place] [address] ([facility]) ([facility] = [facility] 1538) [address] LACTIC ACID, [id number] 17:04:00 Test Item Value Reference Range Interpretation Comments LACTATE BLOOD VENOUS (2) ([facility]) 0.7 mmol/L 0.5-2.2 (test code = 2872) POCT-GLUCOSE [id number] 13:25:00 Test Item Value Reference Range Interpretation Comments POC-GLUCOSE METER 129 mg/dL 70-110 H TESTED AT [place] [address] ([facility]) (test code = CHANTE Mohamud [facility] 1538) [address] POCT-GLUCOSE [id number] 10:27:00 Test Item Value Reference Range Interpretation Comments POC-GLUCOSE METER 109 mg/dL 70-110 TESTED AT [place] [address] ([facility]) (test code = CHANTE Mohamud [facility] 1538) [address] LACTIC ACID, [id number] 07:03:00 Test Item Value Reference Range Interpretation Comments LACTATE BLOOD VENOUS 0.9 mmol/L 0.5-2.2 Specime n slightly (2) ([facility]) (test hemolyzed code = 2872) RAD, ABDOMEN/KUB, 1 VIEW [id number] 02:12:00Reason for exam:->UPRIGHT assess for perf; abdomoinal [...] proper clinical setting. Small left pleuraleffusion. Signed: Lu Darden Verified Date/Time: 07/12/2018 02:12:57 POCT-LACTIC ACID, [id number] 02:11:00 Test Item Value Reference Range Interpretation Comments POC-LACTIC ACID, 1.5 mmol/L 0.9-1.7 TESTED AT [place] [address] VENOUS ([facility]) (test [facility] code = 2805) [address] [id number] 02:11:00 Test Item Value Reference Range Interpretation Comments POC-GLUCOSE ([facility]) 106 mg/dL 70-110 TESTED AT [place] [address] (test code = 1855) [facility] [address] POCT-CALCIUM [id number] 02:11:00 Test Item Value Reference Range Interpretation Comments POC-CALCIUM IONIZED 1.15 mmol/L 1.12-1.27 TESTED A T [place] [address] ([facility]) (test code = [facility] 1536) [address] [id number] 02:11:00 Test Item Value Reference Range Interpretation Comments POC-HEMATOCRIT 37 % 40-50 L TESTED AT [place] [address] ([facility]) (test code = [facility] [address] 6582) [id number] 02:11:00 Test Item Value Reference Range Interpretation Comments POC-HEMOGLOBIN 12.6 g/dL 13.0-16.8 L TESTED AT [place] [address] ([facility]) (test code [facility] = 1856) [address]VPAQKK AT [place] [address] [facility] [address] POCT-BLOOD GASES, [id number] 02:10:00 Test Item Value Reference Range Interpretation Comments TEMP, CELSIUS-POC 38.4 (BEAKER) (test code = 1834) FIO2-POC (BEAKER) 21 TESTED AT [facility] 6720 (test code = 1835) [facility] [place] [address] PH, VENOUS-POC 7.362 7.320-7.420 (BEAKER) (test code = 1842) PCO2, VENOUS-POC 50.1 mm Hg 41.0-51.0 (BEAKER) (test code = 1843) PO2, VENOUS-POC 21.0 mm Hg 25.0-40.0 L (BEAKER) (test code = 1844) SO2, VENOUS-POC 29.0 % 40.0-70.0 L (BEAKER) (test code = 1845) HCO3, VENOUS-POC 28.0 meq/L 21.0-29.0 (BEAKER) (test code = 1846) BASE EXCESS, 3.0 meq/L -2.0-3.0 VENOUS-POC (BEAKER) (test code = 1847) [id number] 02:10:00 Test Item Value Reference Range Interpretation Comments POC-SODIUM (BEAKER) 139 meq/L 135-148 TESTED A T [place] [address] (test code = 1542) [facility] [address] [id number] 02:10:00 Test Item Value Reference Range Interpretation Comments POC-POTASSIUM 3.7 meq/L 3.6-5.5 TESTED AT [facility] 6720 (BEAKER) (test code [facility] [address] = 1540) HEPATIC FUNCTION [id number] 02:04:00 Test Item Value Reference Range Interpretation Comments TOTAL PROTEIN (BEAKER) (test code = 6.2 gm/dL 6.0-8.3 770) ALBUMIN (BEAKER) (test code = 1145) 2.7 g/dL 3.5-5.0 L BILIRUBIN TOTAL (BEAKER) (test code 0.5 mg/dL 0.2-1.2 = 377) BILIRUBIN DIRECT (BEAKER) (test 0.3 mg/dL 0.1-0.5 code = 706) ALKALINE PHOSPHATASE (BEAKER) (test 86 U/L 40-150 code = 346) AST (SGOT) (BEAKER) (test code = 14 U/L 5-34 353) ALT (SGPT) (BEAKER) (test code = 8 U/L 6-55 347) BASIC METABOLIC [id number] 02:04:00 Test Item Value Reference Range Interpretation Comments SODIUM (BEAKER) 138 meq/L 136-145 (test code = 381) POTASSIUM (BEAKER) 3.7 meq/L 3.5-5.1 (test code = 379) CHLORIDE (BEAKER) 107 meq/L 98-107 (test code = 382) CO2 (BEAKER) (test 22 meq/L 22-29 code = 355) BLOOD UREA NITROGEN 3 mg/dL 7-21 L (BEAKER) (test code = 354) CREATININE (BEAKER) 0.74 mg/dL 0.57-1.25 (test code = 358) GLUCOSE RANDOM 133 mg/dL 70-105 H (BEAKER) (test code = 652) CALCIUM (BEAKER) 8.1 mg/dL 8.4-10.2 L (test code = 697) EGFR (BEAKER) (test 125 mL/min/1.73 ESTIM ATED GFR IS code = 1092) sq m NOT ACCURATE CREATININE CLEARANCE IN PREDICTING GLOMERULAR FILTRATION RATE . ESTIMATED GFR I S NOT APPLICABLE FOR DIALYSIS PATIEN TS. CBC W/PLT COUNT & AUTO [id number] 02:03:00 Test Item Value Reference Range Interpretation Comments WHITE BLOOD CELL COUNT (BEAKER) 10.8 K/ L 3.5-10.5 H (test code = 775) RED BLOOD CELL COUNT (BEAKER) 4.07 M/ L 4.63-6.08 L (test code = 761) HEMOGLOBIN (BEAKER) (test code = 11.8 GM/DL 13.7-17.5 L 410) HEMATOCRIT (BEAKER) (test code = 37.3 % 40.1-51.0 L 411) MEAN CORPUSCULAR VOLUME (BEAKER) 91.6 fL 79.0-92.2 (test code = 753) MEAN CORPUSCULAR HEMOGLOBIN 29.0 pg 25.7-32.2 (BEAKER) (test code = 751) MEAN CORPUSCULAR HEMOGLOBIN CONC 31.6 GM/DL 32.3-36.5 L (BEAKER) (test code = 752) RED CELL DISTRIBUTION WIDTH 13.8 % 11.6-14.4 (BEAKER) (test code = 412) PLATELET COUNT (BEAKER) (test 295 K/CU MM 150-450 code = 756) MEAN PLATELET VOLUME (BEAKER) 11.1 fL 9.4-12.4 (test code = 754) NUCLEATED RED BLOOD CELLS 0 /100 WBC 0-0 (BEAKER) (test code = 413) NEUTROPHILS RELATIVE PERCENT 84 % (BEAKER) (test code = 429) LYMPHOCYTES RELATIVE PERCENT 9 % (BEAKER) (test code = 430) MONOCYTES RELATIVE PERCENT 6 % (BEAKER) (test code = 431) EOSINOPHILS RELATIVE PERCENT 0 % (BEAKER) (test code = 432) BASOPHILS RELATIVE PERCENT 0 % (BEAKER) (test code = 437) NEUTROPHILS ABSOLUTE COUNT 9.10 K/ L 1.78-5.38 H (BEAKER) (test code = 670) LYMPHOCYTES ABSOLUTE COUNT 0.97 K/ L 1.32-3.57 L (BEAKER) (test code = 414) MONOCYTES ABSOLUTE COUNT (BEAKER) 0.68 K/ L 0.30-0.82 (test code = 415) EOSINOPHILS ABSOLUTE COUNT 0.01 K/ L 0.04-0.54 L (BEAKER) (test code = 416) BASOPHILS ABSOLUTE COUNT (BEAKER) 0.02 K/ L 0.01-0.08 (test code = 417) IMMATURE GRANULOCYTES-RELATIVE 0 % 0-1 PERCENT (BEAKER) (test code = 2801) POCT-GLUCOSE [id number] 00:17:00 Test Item Value Reference Range Interpretation Comments POC-GLUCOSE METER 137 mg/dL 70-110 H TESTED AT [place] [address] ([facility]) (test code = [place] Mohamud [place] 1538) [address] POCT-GLUCOSE [id number] 18:14:00 Test Item Value Reference Range Interpretation Comments POC-GLUCOSE METER 106 mg/dL 70-110 TESTED AT [place] [address] ([facility]) (test code = CHANTE Mohamud [facility] 1538) [address] VANCOMYCIN LEVEL, [id number] 14:20:00 Test Item Value Reference Range Interpretation Comments VANCOMYCIN TROUGH (BEAKER) (test 7.1 ug/mL 10.0-20.0 L code = 522) If vancomycin trough level > 20 mcg/mL, hold next vancomycin dose, and contact MD and pharmacist.POCT-GLUCOSE [id number] 13:10:00 Test Item Value Reference Range Interpretation Comments POC-GLUCOSE METER 155 mg/dL 70-110 H TESTED AT [facility] 6720 (BEAKER) (test code = [place] 1538) [address] HEPATIC FUNCTION [id number] 06:51:00 Test Item Value Reference Range Interpretation Comments TOTAL PROTEIN (BEAKER) (test code = 6.5 gm/dL 6.0-8.3 770) ALBUMIN (BEAKER) (test code = 1145) 2.9 g/dL 3.5-5.0 L BILIRUBIN TOTAL (BEAKER) (test code 0.4 mg/dL 0.2-1.2 = 377) BILIRUBIN DIRECT (BEAKER) (test 0.2 mg/dL 0.1-0.5 code = 706) ALKALINE PHOSPHATASE (BEAKER) (test 94 U/L 40-150 code = 346) AST (SGOT) (BEAKER) (test code = 14 U/L 5-34 353) ALT (SGPT) (BEAKER) (test code = 11 U/L 6-55 347) BASIC METABOLIC [id number] 06:51:00 Test Item Value Reference Range Interpretation Comments SODIUM (BEAKER) 138 meq/L 136-145 (test code = 381) POTASSIUM (BEAKER) 3.6 meq/L 3.5-5.1 (test code = 379) CHLORIDE (BEAKER) 106 meq/L 98-107 (test code = 382) CO2 (BEAKER) (test 24 meq/L 22-29 code = 355) BLOOD UREA NITROGEN 3 mg/dL 7-21 L (BEAKER) (test code = 354) CREATININE (BEAKER) 0.68 mg/dL 0.57-1.25 (test code = 358) GLUCOSE RANDOM 96 mg/dL 70-105 (BEAKER) (test code = 652) CALCIUM (BEAKER) 8.2 mg/dL 8.4-10.2 L (test code = 697) EGFR (BEAKER) (test 138 mL/min/1.73 ESTIM ATED GFR IS code = 1092) sq m NOT ACCURATE CREATININE CLEARANCE IN PREDICTING GLOMERULAR FILTRATION RATE . ESTIMATED GFR I S NOT APPLICABLE FOR DIALYSIS PATIEN TS. CBC W/PLT COUNT & AUTO [id number] 05:32:00 Test Item Value Reference Range Interpretation Comments WHITE BLOOD CELL COUNT (BEAKER) 6.7 K/ L 3.5-10.5 (test code = 775) RED BLOOD CELL COUNT (BEAKER) 4.03 M/ L 4.63-6.08 L (test code = 761) HEMOGLOBIN (BEAKER) (test code = 11.6 GM/DL 13.7-17.5 L 410) HEMATOCRIT (BEAKER) (test code = 36.9 % 40.1-51.0 L 411) MEAN CORPUSCULAR VOLUME (BEAKER) 91.6 fL 79.0-92.2 (test code = 753) MEAN CORPUSCULAR HEMOGLOBIN 28.8 pg 25.7-32.2 (BEAKER) (test code = 751) MEAN CORPUSCULAR HEMOGLOBIN CONC 31.4 GM/DL 32.3-36.5 L (BEAKER) (test code = 752) RED CELL DISTRIBUTION WIDTH 13.7 % 11.6-14.4 (BEAKER) (test code = 412) PLATELET COUNT (BEAKER) (test 298 K/CU MM 150-450 code = 756) MEAN PLATELET VOLUME (BEAKER) 10.6 fL 9.4-12.4 (test code = 754) NUCLEATED RED BLOOD CELLS 0 /100 WBC 0-0 (BEAKER) (test code = 413) NEUTROPHILS RELATIVE PERCENT 67 % (BEAKER) (test code = 429) LYMPHOCYTES RELATIVE PERCENT 20 % (BEAKER) (test code = 430) MONOCYTES RELATIVE PERCENT 7 % (BEAKER) (test code = 431) EOSINOPHILS RELATIVE PERCENT 4 % (BEAKER) (test code = 432) BASOPHILS RELATIVE PERCENT 0 % (BEAKER) (test code = 437) NEUTROPHILS ABSOLUTE COUNT 4.52 K/ L 1.78-5.38 (BEAKER) (test code = 670) LYMPHOCYTES ABSOLUTE COUNT 1.35 K/ L 1.32-3.57 (BEAKER) (test code = 414) MONOCYTES ABSOLUTE COUNT (BEAKER) 0.50 K/ L 0.30-0.82 (test code = 415) EOSINOPHILS ABSOLUTE COUNT 0.29 K/ L 0.04-0.54 (BEAKER) (test code = 416) BASOPHILS ABSOLUTE COUNT (BEAKER) 0.03 K/ L 0.01-0.08 (test code = 417) IMMATURE GRANULOCYTES-RELATIVE 0 % 0-1 PERCENT (BEAKER) (test code = 2801) [id number] 11:08:00 Test Item Value Reference Range Interpretation Comments PARTIAL THROMBOPLASTIN TIME 47.0 seconds 22.5-36.0 H (BEAKER) (test code = 760) PROTHROMBIN [id number] 11:07:00 Test Item Value Reference Range Interpretation Comments PROTIME (BEAKER) (test code = 16.1 seconds 11.9-14.2 H 759) INR (BEAKER) (test code = 370) 1.4 <=5.9 Effective 07/03/2018: PT Reference Range ChangeNew: 11.9-14.2 Previous: 11.7- 14.7RECOMMENDED COUMADIN/WARFARIN INR THERAPY RANGESSTANDARD DOSE: 2.0-3.0 Includes: PROPHYLAXIS for venous thrombosis, systemic embolization; TREATMENT for venous thrombosis and/or pulmonary embolus.HIGH RISK: Target INR is2.5-3.5 for patients wiht mechanical heart valves.HEPATIC FUNCTION [id number] 01:46:00 Test Item Value Reference Range Interpretation Comments TOTAL PROTEIN (BEAKER) (test code = 6.6 gm/dL 6.0-8.3 770) ALBUMIN (BEAKER) (test code = 1145) 3.0 g/dL 3.5-5.0 L BILIRUBIN TOTAL (BEAKER) (test code 0.5 mg/dL 0.2-1.2 = 377) BILIRUBIN DIRECT (BEAKER) (test 0.3 mg/dL 0.1-0.5 code = 706) ALKALINE PHOSPHATASE (BEAKER) (test 97 U/L 40-150 code = 346) AST (SGOT) (BEAKER) (test code = 24 U/L 5-34 353) ALT (SGPT) (BEAKER) (test code = 16 U/L 6-55 347) BASIC METABOLIC [id number] 01:46:00 Test Item Value Reference Range Interpretation Comments SODIUM (BEAKER) 139 meq/L 136-145 (test code = 381) POTASSIUM (BEAKER) 3.7 meq/L 3.5-5.1 (test code = 379) CHLORIDE (BEAKER) 107 meq/L 98-107 (test code = 382) CO2 (BEAKER) (test 24 meq/L 22-29 code = 355) BLOOD UREA NITROGEN 3 mg/dL 7-21 L (BEAKER) (test code = 354) CREATININE (BEAKER) 0.68 mg/dL 0.57-1.25 (test code = 358) GLUCOSE RANDOM 90 mg/dL 70-105 (BEAKER) (test code = 652) CALCIUM (BEAKER) 8.6 mg/dL 8.4-10.2 (test code = 697) EGFR (BEAKER) (test 138 mL/min/1.73 ESTIM ATED GFR IS code = 1092) sq m NOT ACCURATE CREATININE CLEARANCE IN PREDICTING GLOMERULAR FILTRATION RATE . ESTIMATED GFR I S NOT APPLICABLE FOR DIALYSIS PATIEN TS. CBC W/PLT COUNT & AUTO [id number] 01:19:00 Test Item Value Reference Range Interpretation Comments WHITE BLOOD CELL COUNT (BEAKER) 9.9 K/ L 3.5-10.5 (test code = 775) RED BLOOD CELL COUNT (BEAKER) 4.00 M/ L 4.63-6.08 L (test code = 761) HEMOGLOBIN (BEAKER) (test code = 11.7 GM/DL 13.7-17.5 L 410) HEMATOCRIT (BEAKER) (test code = 36.1 % 40.1-51.0 L 411) MEAN CORPUSCULAR VOLUME (BEAKER) 90.3 fL 79.0-92.2 (test code = 753) MEAN CORPUSCULAR HEMOGLOBIN 29.3 pg 25.7-32.2 (BEAKER) (test code = 751) MEAN CORPUSCULAR HEMOGLOBIN CONC 32.4 GM/DL 32.3-36.5 (BEAKER) (test code = 752) RED CELL DISTRIBUTION WIDTH 13.5 % 11.6-14.4 (BEAKER) (test code = 412) PLATELET COUNT (BEAKER) (test 298 K/CU MM 150-450 code = 756) MEAN PLATELET VOLUME (BEAKER) 10.8 fL 9.4-12.4 (test code = 754) NUCLEATED RED BLOOD CELLS 0 /100 WBC 0-0 (BEAKER) (test code = 413) NEUTROPHILS RELATIVE PERCENT 71 % (BEAKER) (test code = 429) LYMPHOCYTES RELATIVE PERCENT 17 % (BEAKER) (test code = 430) MONOCYTES RELATIVE PERCENT 8 % (BEAKER) (test code = 431) EOSINOPHILS RELATIVE PERCENT 3 % (BEAKER) (test code = 432) BASOPHILS RELATIVE PERCENT 1 % (BEAKER) (test code = 437) NEUTROPHILS ABSOLUTE COUNT 7.08 K/ L 1.78-5.38 H (BEAKER) (test code = 670) LYMPHOCYTES ABSOLUTE COUNT 1.69 K/ L 1.32-3.57 (BEAKER) (test code = 414) MONOCYTES ABSOLUTE COUNT (BEAKER) 0.76 K/ L 0.30-0.82 (test code = 415) EOSINOPHILS ABSOLUTE COUNT 0.32 K/ L 0.04-0.54 (BEAKER) (test code = 416) BASOPHILS ABSOLUTE COUNT (BEAKER) 0.05 K/ L 0.01-0.08 (test code = 417) IMMATURE GRANULOCYTES-RELATIVE 0 % 0-1 PERCENT (BEAKER) (test code = 2801) BETA-2 GLYCOPROTEIN [id number] 08:02:00 Test Item Value Reference Range Interpretation Comments B2 GLYCOPROTEIN Refer to individual AUTOVERIFICATION COMPONENT B2-Glycoprotein (test code = 2557) IgG, IgM and IgA results. [id number] 07:34:00 Test Item Value Reference Range Interpretation Comments MAGNESIUM (BEAKER) (test code = 1.6 mg/dL 1.6-2.6 627) BASIC METABOLIC [id number] 07:34:00 Test Item Value Reference Range Interpretation Comments SODIUM (BEAKER) 138 meq/L 136-145 (test code = 381) POTASSIUM (BEAKER) 4.4 meq/L 3.5-5.1 (test code = 379) CHLORIDE (BEAKER) 102 meq/L 98-107 (test code = 382) CO2 (BEAKER) (test 24 meq/L 22-29 code = 355) BLOOD UREA NITROGEN 7 mg/dL 7-21 (BEAKER) (test code = 354) CREATININE (BEAKER) 0.80 mg/dL 0.57-1.25 (test code = 358) GLUCOSE RANDOM 93 mg/dL 70-105 (BEAKER) (test code = 652) CALCIUM (BEAKER) 9.6 mg/dL 8.4-10.2 (test code = 697) EGFR (BEAKER) (test 114 mL/min/1.73 ESTIM ATED GFR IS code = 1092) sq m NOT ACCURATE CREATININE CLEARANCE IN PREDICTING GLOMERULAR FILTRATION RATE . ESTIMATED GFR I S NOT APPLICABLE FOR DIALYSIS PATIEN TS. HEPATIC FUNCTION [id number] 07:34:00 Test Item Value Reference Range Interpretation Comments TOTAL PROTEIN (BEAKER) (test code = 7.6 gm/dL 6.0-8.3 770) ALBUMIN (BEAKER) (test code = 1145) 3.3 g/dL 3.5-5.0 L BILIRUBIN TOTAL (BEAKER) (test code 0.7 mg/dL 0.2-1.2 = 377) BILIRUBIN DIRECT (BEAKER) (test 0.5 mg/dL 0.1-0.5 code = 706) ALKALINE PHOSPHATASE (BEAKER) (test 105 U/L 40-150 code = 346) AST (SGOT) (BEAKER) (test code = 38 U/L 5-34 H 353) ALT (SGPT) (BEAKER) (test code = 41 U/L 6-55 347) [id number] 07:23:00 Test Item Value Reference Range Interpretation Comments PROTIME (BEAKER) (test code = 14.8 seconds 11.7-14.7 H 759) INR (BEAKER) (test code = 370) 1.2 <=5.9 PARTIAL THROMBOPLASTIN TIME 33.8 seconds 22.5-36.0 (BEAKER) (test code = 760) RECOMMENDED COUMADIN/WARFARIN INR THERAPY RANGESSTANDARD DOSE: 2.0 - 3.0 Includes: PROPHYLAXIS forvenous thrombosis, systemic embolization; TREATMENT for venous thrombosis and/or pulmonary embolus.HIGH RISK: Target INR is 2.5-3.5 for patients with mechanical heart valves.CBC W/PLT COUNT & AUTO DIFFERENTIAL 2018-06-16 07:19:00 Test Item Value Reference Range Interpretation Comments WHITE BLOOD CELL COUNT (BEAKER) 11.2 K/ L 3.5-10.5 H (test code = 775) RED BLOOD CELL COUNT (BEAKER) 4.39 M/ L 4.63-6.08 L (test code = 761) HEMOGLOBIN (BEAKER) (test code = 12.7 GM/DL 13.7-17.5 L 410) HEMATOCRIT (BEAKER) (test code = 40.5 % 40.1-51.0 411) MEAN CORPUSCULAR VOLUME (BEAKER) 92.3 fL 79.0-92.2 H (test code = 753) MEAN CORPUSCULAR HEMOGLOBIN 28.9 pg 25.7-32.2 (BEAKER) (test code = 751) MEAN CORPUSCULAR HEMOGLOBIN CONC 31.4 GM/DL 32.3-36.5 L (BEAKER) (test code = 752) RED CELL DISTRIBUTION WIDTH 13.4 % 11.6-14.4 (BEAKER) (test code = 412) PLATELET COUNT (BEAKER) (test 570 K/CU MM 150-450 H code = 756) MEAN PLATELET VOLUME (BEAKER) 10.5 fL 9.4-12.4 (test code = 754) NUCLEATED RED BLOOD CELLS 0 /100 WBC 0-0 (BEAKER) (test code = 413) NEUTROPHILS RELATIVE PERCENT 64 % (BEAKER) (test code = 429) LYMPHOCYTES RELATIVE PERCENT 20 % (BEAKER) (test code = 430) MONOCYTES RELATIVE PERCENT 9 % (BEAKER) (test code = 431) EOSINOPHILS RELATIVE PERCENT 5 % (BEAKER) (test code = 432) BASOPHILS RELATIVE PERCENT 1 % (BEAKER) (test code = 437) NEUTROPHILS ABSOLUTE COUNT 7.13 K/ L 1.78-5.38 H (BEAKER) (test code = 670) LYMPHOCYTES ABSOLUTE COUNT 2.20 K/ L 1.32-3.57 (BEAKER) (test code = 414) MONOCYTES ABSOLUTE COUNT (BEAKER) 0.95 K/ L 0.30-0.82 H (test code = 415) EOSINOPHILS ABSOLUTE COUNT 0.59 K/ L 0.04-0.54 H (BEAKER) (test code = 416) BASOPHILS ABSOLUTE COUNT (BEAKER) 0.14 K/ L 0.01-0.08 H (test code = 417) IMMATURE GRANULOCYTES-RELATIVE 2 % 0-1 H PERCENT (BEAKER) (test code = 2801) LUPUS ANTICOAGULANT SCREEN WITH REFLEX TO [id number] 09:29:00 Test Item Value Reference Range Interpretation Comments DRVV SCREEN RATIO 1.39 <1.20 H (BEAKER) (test code = 1373) DRVV CONFIRM RATIO 1.21 (test code = 6366) DRVV INTERPRETATION Positive screen for (BEAKER) (test code = Lupus Anticoagulant 9713) with hexagonal phospholipid confirmation. Suggest repeat testing in 12 weeks and when patient not receiving anticoagulant therapy. PROTIME (BEAKER) (test 19.6 seconds 11.7-14.7 H code = 759) INR (BEAKER) (test code 1.7 <=5.9 = 370) PARTIAL THROMBOPLASTIN 57.5 seconds 22.5-36.0 H TIME (BEAKER) (test code = 760) PTT-LA (BEAKER) (test 61.5 32.0-41.8 H code = [id number]) [id number] Christy Smith MD (BEAKER) (test code = (electronic signature) 7220) [id number] 08:06:00 Test Item Value Reference Range Interpretation Comments MAGNESIUM (BEAKER) (test code = 1.7 mg/dL 1.6-2.6 627) BASIC METABOLIC [id number] 08:06:00 Test Item Value Reference Range Interpretation Comments SODIUM (BEAKER) 135 meq/L 136-145 L (test code = 381) POTASSIUM (BEAKER) 4.1 meq/L 3.5-5.1 (test code = 379) CHLORIDE (BEAKER) 101 meq/L 98-107 (test code = 382) CO2 (BEAKER) (test 24 meq/L 22-29 code = 355) BLOOD UREA NITROGEN 6 mg/dL 7-21 L (BEAKER) (test code = 354) CREATININE (BEAKER) 0.81 mg/dL 0.57-1.25 (test code = 358) GLUCOSE RANDOM 101 mg/dL 70-105 (BEAKER) (test code = 652) CALCIUM (BEAKER) 9.3 mg/dL 8.4-10.2 (test code = 697) EGFR (BEAKER) (test 113 mL/min/1.73 ESTIM ATED GFR IS code = 1092) sq m NOT ACCURATE CREATININE CLEARANCE IN PREDICTING GLOMERULAR FILTRATION RATE . ESTIMATED GFR I S NOT APPLICABLE FOR DIALYSIS PATIEN TS. HEPATIC FUNCTION [id number] 08:06:00 Test Item Value Reference Range Interpretation Comments TOTAL PROTEIN (BEAKER) (test code = 7.6 gm/dL 6.0-8.3 770) ALBUMIN (BEAKER) (test code = 1145) 3.2 g/dL 3.5-5.0 L BILIRUBIN TOTAL (BEAKER) (test code 0.7 mg/dL 0.2-1.2 = 377) BILIRUBIN DIRECT (BEAKER) (test 0.5 mg/dL 0.1-0.5 code = 706) ALKALINE PHOSPHATASE (BEAKER) (test 108 U/L 40-150 code = 346) AST (SGOT) (BEAKER) (test code = 37 U/L 5-34 H 353) ALT (SGPT) (BEAKER) (test code = 39 U/L 6-55 347) CBC W/PLT COUNT & AUTO [id number] 07:58:00 Test Item Value Reference Range Interpretation Comments WHITE BLOOD CELL COUNT (BEAKER) 12.1 K/ L 3.5-10.5 H (test code = 775) RED BLOOD CELL COUNT (BEAKER) 4.28 M/ L 4.63-6.08 L (test code = 761) HEMOGLOBIN (BEAKER) (test code = 12.3 GM/DL 13.7-17.5 L 410) HEMATOCRIT (BEAKER) (test code = 38.9 % 40.1-51.0 L 411) MEAN CORPUSCULAR VOLUME (BEAKER) 90.9 fL 79.0-92.2 (test code = 753) MEAN CORPUSCULAR HEMOGLOBIN 28.7 pg 25.7-32.2 (BEAKER) (test code = 751) MEAN CORPUSCULAR HEMOGLOBIN CONC 31.6 GM/DL 32.3-36.5 L (BEAKER) (test code = 752) RED CELL DISTRIBUTION WIDTH 13.3 % 11.6-14.4 (BEAKER) (test code = 412) PLATELET COUNT (BEAKER) (test 624 K/CU MM 150-450 H code = 756) MEAN PLATELET VOLUME (BEAKER) 10.4 fL 9.4-12.4 (test code = 754) NUCLEATED RED BLOOD CELLS 0 /100 WBC 0-0 (BEAKER) (test code = 413) NEUTROPHILS RELATIVE PERCENT 66 % (BEAKER) (test code = 429) LYMPHOCYTES RELATIVE PERCENT 18 % (BEAKER) (test code = 430) MONOCYTES RELATIVE PERCENT 9 % (BEAKER) (test code = 431) EOSINOPHILS RELATIVE PERCENT 5 % (BEAKER) (test code = 432) BASOPHILS RELATIVE PERCENT 1 % (BEAKER) (test code = 437) NEUTROPHILS ABSOLUTE COUNT 7.94 K/ L 1.78-5.38 H (BEAKER) (test code = 670) LYMPHOCYTES ABSOLUTE COUNT 2.11 K/ L 1.32-3.57 (BEAKER) (test code = 414) MONOCYTES ABSOLUTE COUNT (BEAKER) 1.13 K/ L 0.30-0.82 H (test code = 415) EOSINOPHILS ABSOLUTE COUNT 0.60 K/ L 0.04-0.54 H (BEAKER) (test code = 416) BASOPHILS ABSOLUTE COUNT (BEAKER) 0.15 K/ L 0.01-0.08 H (test code = 417) IMMATURE GRANULOCYTES-RELATIVE 1 % 0-1 PERCENT (BEAKER) (test code = 2801) PROTHROMBIN [id number] 07:26:00 Test Item Value Reference Range Interpretation Comments PROTIME (BEAKER) (test code = 14.5 seconds 11.7-14.7 759) INR (BEAKER) (test code = 370) 1.2 <=5.9 RECOMMENDED COUMADIN/WARFARIN INR THERAPY RANGESSTANDARD DOSE: 2.0 - 3.0 Includes: PROPHYLAXIS forvenous thrombosis, systemic embolization; TREATMENT for venous thrombosis and/or pulmonary embolus.HIGH RISK: Target INR is 2.5-3.5 for patients with mechanical heart valves.[id number] 07:26:00 Test Item Value Reference Range Interpretation Comments PROTIME (BEAKER) (test code = 14.5 seconds 11.7-14.7 759) INR (BEAKER) (test code = 370) 1.2 <=5.9 PARTIAL THROMBOPLASTIN TIME 38.9 seconds 22.5-36.0 H (BEAKER) (test code = 760) RECOMMENDED COUMADIN/WARFARIN INR THERAPY RANGESSTANDARD DOSE: 2.0 - 3.0 Includes: PROPHYLAXIS forvenous thrombosis, systemic embolization; TREATMENT for venous thrombosis and/or pulmonary embolus.HIGH RISK: Target INR is 2.5-3.5 for patients with mechanical heart valves.HEXAGONAL [id number] 14:07:00 Test Item Value Reference Range Interpretation Comments HEXAGONAL PHOSPHOLIPID (BEAKER) Positive (test code = 1790) 1:1 MIXING STUDY, [id number] 09:07:00 Test Item Value Reference Range Interpretation Comments PROTIME (BEAKER) (test code = 19.6 seconds 11.7-14.7 H 759) PARTIAL THROMBOPLASTIN TIME 57.5 seconds 22.5-36.0 H (BEAKER) (test code = 760) PT 1/1 MIX (BEAKER) (test code = 14.4 SECS 11.7-14.7 1595) PTT 1/1 MIX (BEAKER) (test code 41.9 SECS 22.5-36.0 H = 1596) [id number] 07:05:00 Test Item Value Reference Range Interpretation Comments PROTIME (BEAKER) (test code = 16.9 seconds 11.7-14.7 H 759) INR (BEAKER) (test code = 370) 1.4 <=5.9 PARTIAL THROMBOPLASTIN TIME 43.7 seconds 22.5-36.0 H (BEAKER) (test code = 760) RECOMMENDED COUMADIN/WARFARIN INR THERAPY RANGESSTANDARD DOSE: 2.0 - 3.0 Includes: PROPHYLAXIS forvenous thrombosis, systemic embolization; TREATMENT for venous thrombosis and/or pulmonary embolus.HIGH RISK: Target INR is 2.5-3.5 for patients with mechanical heart valves.PROTHROMBIN [id number] 07:04:00 Test Item Value Reference Range Interpretation Comments PROTIME (BEAKER) (test code = 16.9 seconds 11.7-14.7 H 759) INR (BEAKER) (test code = 370) 1.4 <=5.9 RECOMMENDED COUMADIN/WARFARIN INR THERAPY RANGESSTANDARD DOSE: 2.0 - 3.0 Includes: PROPHYLAXIS forvenous thrombosis, systemic embolization; TREATMENT for venous thrombosis and/or pulmonary embolus.HIGH RISK: Target INR is 2.5-3.5 for patients with mechanical heart valves.[id number] 06:49:00 Test Item Value Reference Range Interpretation Comments MAGNESIUM (BEAKER) (test code = 1.7 mg/dL 1.6-2.6 627) BASIC METABOLIC [id number] 06:49:00 Test Item Value Reference Range Interpretation Comments SODIUM (BEAKER) 135 meq/L 136-145 L (test code = 381) POTASSIUM (BEAKER) 4.2 meq/L 3.5-5.1 (test code = 379) CHLORIDE (BEAKER) 101 meq/L 98-107 (test code = 382) CO2 (BEAKER) (test 25 meq/L 22-29 code = 355) BLOOD UREA NITROGEN 6 mg/dL 7-21 L (BEAKER) (test code = 354) CREATININE (BEAKER) 0.73 mg/dL 0.57-1.25 (test code = 358) GLUCOSE RANDOM 96 mg/dL 70-105 (BEAKER) (test code = 652) CALCIUM (BEAKER) 9.0 mg/dL 8.4-10.2 (test code = 697) EGFR (BEAKER) (test 127 mL/min/1.73 ESTIM ATED GFR IS code = 1092) sq m NOT ACCURATE CREATININE CLEARANCE IN PREDICTING GLOMERULAR FILTRATION RATE . ESTIMATED GFR I S NOT APPLICABLE FOR DIALYSIS PATIEN TS. HEPATIC FUNCTION [id number] 06:49:00 Test Item Value Reference Range Interpretation Comments TOTAL PROTEIN (BEAKER) (test code = 7.3 gm/dL 6.0-8.3 770) ALBUMIN (BEAKER) (test code = 1145) 3.0 g/dL 3.5-5.0 L BILIRUBIN TOTAL (BEAKER) (test code 0.8 mg/dL 0.2-1.2 = 377) BILIRUBIN DIRECT (BEAKER) (test 0.5 mg/dL 0.1-0.5 code = 706) ALKALINE PHOSPHATASE (BEAKER) (test 108 U/L 40-150 code = 346) AST (SGOT) (BEAKER) (test code = 40 U/L 5-34 H 353) ALT (SGPT) (BEAKER) (test code = 42 U/L 6-55 347) CBC W/PLT COUNT & AUTO [id number] 06:36:00 Test Item Value Reference Range Interpretation Comments WHITE BLOOD CELL COUNT (BEAKER) 10.1 K/ L 3.5-10.5 (test code = 775) RED BLOOD CELL COUNT (BEAKER) 4.19 M/ L 4.63-6.08 L (test code = 761) HEMOGLOBIN (BEAKER) (test code = 12.1 GM/DL 13.7-17.5 L 410) HEMATOCRIT (BEAKER) (test code = 38.7 % 40.1-51.0 L 411) MEAN CORPUSCULAR VOLUME (BEAKER) 92.4 fL 79.0-92.2 H (test code = 753) MEAN CORPUSCULAR HEMOGLOBIN 28.9 pg 25.7-32.2 (BEAKER) (test code = 751) MEAN CORPUSCULAR HEMOGLOBIN CONC 31.3 GM/DL 32.3-36.5 L (BEAKER) (test code = 752) RED CELL DISTRIBUTION WIDTH 13.3 % 11.6-14.4 (BEAKER) (test code = 412) PLATELET COUNT (BEAKER) (test 582 K/CU MM 150-450 H code = 756) MEAN PLATELET VOLUME (BEAKER) 10.7 fL 9.4-12.4 (test code = 754) NUCLEATED RED BLOOD CELLS 0 /100 WBC 0-0 (BEAKER) (test code = 413) NEUTROPHILS RELATIVE PERCENT 66 % (BEAKER) (test code = 429) LYMPHOCYTES RELATIVE PERCENT 18 % (BEAKER) (test code = 430) MONOCYTES RELATIVE PERCENT 8 % (BEAKER) (test code = 431) EOSINOPHILS RELATIVE PERCENT 5 % (BEAKER) (test code = 432) BASOPHILS RELATIVE PERCENT 1 % (BEAKER) (test code = 437) NEUTROPHILS ABSOLUTE COUNT 6.68 K/ L 1.78-5.38 H (BEAKER) (test code = 670) LYMPHOCYTES ABSOLUTE COUNT 1.80 K/ L 1.32-3.57 (BEAKER) (test code = 414) MONOCYTES ABSOLUTE COUNT (BEAKER) 0.81 K/ L 0.30-0.82 (test code = 415) EOSINOPHILS ABSOLUTE COUNT 0.52 K/ L 0.04-0.54 (BEAKER) (test code = 416) BASOPHILS ABSOLUTE COUNT (BEAKER) 0.11 K/ L 0.01-0.08 H (test code = 417) IMMATURE GRANULOCYTES-RELATIVE 1 % 0-1 PERCENT (BEAKER) (test code = 2801) CARDIOLIPIN ANTIBODIES, IGG AND [id number] 06:24:00 Test Item Value Reference Range Interpretation Comments ANTICARDIOLIPIN IGG ANTIBODY (BEAKER) < GPL <20.0 (test code = 712) ANTICARDIOLIPIN IGM ANTIBODY (BEAKER) 0.2 MPL <20.0 (test code = 713) Anticardiolipin IgG Result Interpretation: <20.0 GPL Normal>/= 20.0 GPL PositiveAnticardiolipin IgM Result Interpretation: <20.0 MPL Normal>/= 20.0 MPL PositiveTHROMBIN [id number] 13:45:00 Test Item Value Reference Range Interpretation Comments THROMBIN TIME (BEAKER) (test code = 17.2 secs 13.8-20.0 550) [id number] 12:46:00 Test Item Value Reference Range Interpretation Comments FIBRINOGEN LEVEL (BEAKER) (test 762 mg/dl 225-434 H code = 658) [id number] 10:48:00 Test Item Value Reference Range Interpretation Comments MAGNESIUM (BEAKER) (test code = 1.7 mg/dL 1.6-2.6 627) BASIC METABOLIC [id number] 10:48:00 Test Item Value Reference Range Interpretation Comments SODIUM (BEAKER) 139 meq/L 136-145 (test code = 381) POTASSIUM (BEAKER) 4.2 meq/L 3.5-5.1 (test code = 379) CHLORIDE (BEAKER) 102 meq/L 98-107 (test code = 382) CO2 (BEAKER) (test 26 meq/L 22-29 code = 355) BLOOD UREA NITROGEN 6 mg/dL 7-21 L (BEAKER) (test code = 354) CREATININE (BEAKER) 0.75 mg/dL 0.57-1.25 (test code = 358) GLUCOSE RANDOM 160 mg/dL 70-105 H (BEAKER) (test code = 652) CALCIUM (BEAKER) 9.3 mg/dL 8.4-10.2 (test code = 697) EGFR (BEAKER) (test 123 mL/min/1.73 ESTIM ATED GFR IS code = 1092) sq m NOT ACCURATE CREATININE CLEARANCE IN PREDICTING GLOMERULAR FILTRATION RATE . ESTIMATED GFR I S NOT APPLICABLE FOR DIALYSIS PATIEN TS. HEPATIC FUNCTION [id number] 10:48:00 Test Item Value Reference Range Interpretation Comments TOTAL PROTEIN (BEAKER) (test code = 7.3 gm/dL 6.0-8.3 770) ALBUMIN (BEAKER) (test code = 1145) 3.0 g/dL 3.5-5.0 L BILIRUBIN TOTAL (BEAKER) (test code 0.7 mg/dL 0.2-1.2 = 377) BILIRUBIN DIRECT (BEAKER) (test 0.5 mg/dL 0.1-0.5 code = 706) ALKALINE PHOSPHATASE (BEAKER) (test 112 U/L 40-150 code = 346) AST (SGOT) (BEAKER) (test code = 47 U/L 5-34 H 353) ALT (SGPT) (BEAKER) (test code = 50 U/L 6-55 347) [id number] 06:40:00 Test Item Value Reference Range Interpretation Comments PROTIME (BEAKER) (test code = 18.8 seconds 11.7-14.7 H 759) INR (BEAKER) (test code = 370) 1.7 <=5.9 PARTIAL THROMBOPLASTIN TIME 52.3 seconds 22.5-36.0 H (BEAKER) (test code = 760) RECOMMENDED COUMADIN/WARFARIN INR THERAPY RANGESSTANDARD DOSE: 2.0 - 3.0 Includes: PROPHYLAXIS forvenous thrombosis, systemic embolization; TREATMENT for venous thrombosis and/or pulmonary embolus.HIGH RISK: Target INR is 2.5-3.5 for patients with mechanical heart valves.PROTHROMBIN [id number] 06:39:00 Test Item Value Reference Range Interpretation Comments PROTIME (BEAKER) (test code = 18.8 seconds 11.7-14.7 H 759) INR (BEAKER) (test code = 370) 1.7 <=5.9 RECOMMENDED COUMADIN/WARFARIN INR THERAPY RANGESSTANDARD DOSE: 2.0 - 3.0 Includes: PROPHYLAXIS forvenous thrombosis, systemic embolization; TREATMENT for venous thrombosis and/or pulmonary embolus.HIGH RISK: Target INR is 2.5-3.5 for patients with mechanical heart valves.CBC W/PLT COUNT & AUTO DIFFERENTIAL [id number] 06:34:00 Test Item Value Reference Range Interpretation Comments WHITE BLOOD CELL COUNT (BEAKER) 9.3 K/ L 3.5-10.5 (test code = 775) RED BLOOD CELL COUNT (BEAKER) 3.78 M/ L 4.63-6.08 L (test code = 761) HEMOGLOBIN (BEAKER) (test code = 11.0 GM/DL 13.7-17.5 L 410) HEMATOCRIT (BEAKER) (test code = 35.0 % 40.1-51.0 L 411) MEAN CORPUSCULAR VOLUME (BEAKER) 92.6 fL 79.0-92.2 H (test code = 753) MEAN CORPUSCULAR HEMOGLOBIN 29.1 pg 25.7-32.2 (BEAKER) (test code = 751) MEAN CORPUSCULAR HEMOGLOBIN CONC 31.4 GM/DL 32.3-36.5 L (BEAKER) (test code = 752) RED CELL DISTRIBUTION WIDTH 13.5 % 11.6-14.4 (BEAKER) (test code = 412) PLATELET COUNT (BEAKER) (test 517 K/CU MM 150-450 H code = 756) MEAN PLATELET VOLUME (BEAKER) 10.5 fL 9.4-12.4 (test code = 754) NUCLEATED RED BLOOD CELLS 0 /100 WBC 0-0 (BEAKER) (test code = 413) NEUTROPHILS RELATIVE PERCENT 64 % (BEAKER) (test code = 429) LYMPHOCYTES RELATIVE PERCENT 20 % (BEAKER) (test code = 430) MONOCYTES RELATIVE PERCENT 9 % (BEAKER) (test code = 431) EOSINOPHILS RELATIVE PERCENT 6 % (BEAKER) (test code = 432) BASOPHILS RELATIVE PERCENT 1 % (BEAKER) (test code = 437) NEUTROPHILS ABSOLUTE COUNT 5.90 K/ L 1.78-5.38 H (BEAKER) (test code = 670) LYMPHOCYTES ABSOLUTE COUNT 1.84 K/ L 1.32-3.57 (BEAKER) (test code = 414) MONOCYTES ABSOLUTE COUNT (BEAKER) 0.82 K/ L 0.30-0.82 (test code = 415) EOSINOPHILS ABSOLUTE COUNT 0.53 K/ L 0.04-0.54 (BEAKER) (test code = 416) BASOPHILS ABSOLUTE COUNT (BEAKER) 0.09 K/ L 0.01-0.08 H (test code = 417) IMMATURE GRANULOCYTES-RELATIVE 1 % 0-1 PERCENT (BEAKER) (test code = 2801) [id number] 06:48:00 Test Item Value Reference Range Interpretation Comments MAGNESIUM (BEAKER) (test code = 1.9 mg/dL 1.6-2.6 627) BASIC METABOLIC [id number] 06:48:00 Test Item Value Reference Range Interpretation Comments SODIUM (BEAKER) 137 meq/L 136-145 (test code = 381) POTASSIUM (BEAKER) 4.0 meq/L 3.5-5.1 (test code = 379) CHLORIDE (BEAKER) 102 meq/L 98-107 (test code = 382) CO2 (BEAKER) (test 29 meq/L 22-29 code = 355) BLOOD UREA NITROGEN 6 mg/dL 7-21 L (BEAKER) (test code = 354) CREATININE (BEAKER) 0.69 mg/dL 0.57-1.25 (test code = 358) GLUCOSE RANDOM 116 mg/dL 70-105 H (BEAKER) (test code = 652) CALCIUM (BEAKER) 8.7 mg/dL 8.4-10.2 (test code = 697) EGFR (BEAKER) (test 136 mL/min/1.73 ESTIM ATED GFR IS code = 1092) sq m NOT ACCURATE CREATININE CLEARANCE IN PREDICTING GLOMERULAR FILTRATION RATE . ESTIMATED GFR I S NOT APPLICABLE FOR DIALYSIS PATIEN TS. HEPATIC FUNCTION [id number] 06:48:00 Test Item Value Reference Range Interpretation Comments TOTAL PROTEIN (BEAKER) (test code = 6.2 gm/dL 6.0-8.3 770) ALBUMIN (BEAKER) (test code = 1145) 2.5 g/dL 3.5-5.0 L BILIRUBIN TOTAL (BEAKER) (test code 0.6 mg/dL 0.2-1.2 = 377) BILIRUBIN DIRECT (BEAKER) (test 0.5 mg/dL 0.1-0.5 code = 706) ALKALINE PHOSPHATASE (BEAKER) (test 102 U/L 40-150 code = 346) AST (SGOT) (BEAKER) (test code = 48 U/L 5-34 H 353) ALT (SGPT) (BEAKER) (test code = 50 U/L 6-55 347) [id number] 06:31:00 Test Item Value Reference Range Interpretation Comments PROTIME (BEAKER) (test code = 21.1 seconds 11.7-14.7 H 759) INR (BEAKER) (test code = 370) 1.9 <=5.9 PARTIAL THROMBOPLASTIN TIME 58.0 seconds 22.5-36.0 H (BEAKER) (test code = 760) RECOMMENDED COUMADIN/WARFARIN INR THERAPY RANGESSTANDARD DOSE: 2.0 - 3.0 Includes: PROPHYLAXIS forvenous thrombosis, systemic embolization; TREATMENT for venous thrombosis and/or pulmonary embolus.HIGH RISK: Target INR is 2.5-3.5 for patients with mechanical heart valves.PROTHROMBIN [id number] 06:30:00 Test Item Value Reference Range Interpretation Comments PROTIME (BEAKER) (test code = 21.1 seconds 11.7-14.7 H 759) INR (BEAKER) (test code = 370) 1.9 <=5.9 RECOMMENDED COUMADIN/WARFARIN INR THERAPY RANGESSTANDARD DOSE: 2.0 - 3.0 Includes: PROPHYLAXIS forvenous thrombosis, systemic embolization; TREATMENT for venous thrombosis and/or pulmonary embolus.HIGH RISK: Target INR is 2.5-3.5 for patients with mechanical heart valves.CBC W/PLT COUNT & AUTO DIFFERENTIAL 2018-06-12 06:11:00 Test Item Value Reference Range Interpretation Comments WHITE BLOOD CELL COUNT (BEAKER) 10.3 K/ L 3.5-10.5 (test code = 775) RED BLOOD CELL COUNT (BEAKER) 3.56 M/ L 4.63-6.08 L (test code = 761) HEMOGLOBIN (BEAKER) (test code = 10.4 GM/DL 13.7-17.5 L 410) HEMATOCRIT (BEAKER) (test code = 33.3 % 40.1-51.0 L 411) MEAN CORPUSCULAR VOLUME (BEAKER) 93.5 fL 79.0-92.2 H (test code = 753) MEAN CORPUSCULAR HEMOGLOBIN 29.2 pg 25.7-32.2 (BEAKER) (test code = 751) MEAN CORPUSCULAR HEMOGLOBIN CONC 31.2 GM/DL 32.3-36.5 L (BEAKER) (test code = 752) RED CELL DISTRIBUTION WIDTH 13.7 % 11.6-14.4 (BEAKER) (test code = 412) PLATELET COUNT (BEAKER) (test 487 K/CU MM 150-450 H code = 756) MEAN PLATELET VOLUME (BEAKER) 10.6 fL 9.4-12.4 (test code = 754) NUCLEATED RED BLOOD CELLS 0 /100 WBC 0-0 (BEAKER) (test code = 413) NEUTROPHILS RELATIVE PERCENT 66 % (BEAKER) (test code = 429) LYMPHOCYTES RELATIVE PERCENT 18 % (BEAKER) (test code = 430) MONOCYTES RELATIVE PERCENT 10 % (BEAKER) (test code = 431) EOSINOPHILS RELATIVE PERCENT 4 % (BEAKER) (test code = 432) BASOPHILS RELATIVE PERCENT 1 % (BEAKER) (test code = 437) NEUTROPHILS ABSOLUTE COUNT 6.87 K/ L 1.78-5.38 H (BEAKER) (test code = 670) LYMPHOCYTES ABSOLUTE COUNT 1.81 K/ L 1.32-3.57 (BEAKER) (test code = 414) MONOCYTES ABSOLUTE COUNT (BEAKER) 1.00 K/ L 0.30-0.82 H (test code = 415) EOSINOPHILS ABSOLUTE COUNT 0.45 K/ L 0.04-0.54 (BEAKER) (test code = 416) BASOPHILS ABSOLUTE COUNT (BEAKER) 0.06 K/ L 0.01-0.08 (test code = 417) IMMATURE GRANULOCYTES-RELATIVE 1 % 0-1 PERCENT (BEAKER) (test code = 2801) RAD, CHEST, 1 VIEW, NON [id number] 18:34:00Reason for exam:->SOBShould this be performed at [...] MDReport Verified Date/Time: 06/11/2018 18:34:14 Reading Location: [facility] [id number] Consult Reading Room B-TYPE NATRIURETIC FACTOR (BNP)2018-06-11 15:45:00 Test Item Value Reference Range Interpretation Comments B-TYPE NATRIURETIC PEPTIDE (BEAKER) < pg/mL 0-100 (test code = 700) [id number] 06:36:00 Test Item Value Reference Range Interpretation Comments PROTIME (BEAKER) (test code = 21.5 seconds 11.7-14.7 H 759) INR (BEAKER) (test code = 370) 2.0 <=5.9 PARTIAL THROMBOPLASTIN TIME 60.3 seconds 22.5-36.0 H (BEAKER) (test code = 760) RECOMMENDED COUMADIN/WARFARIN INR THERAPY RANGESSTANDARD DOSE: 2.0 - 3.0 Includes: PROPHYLAXIS forvenous thrombosis, systemic embolization; TREATMENT for venous thrombosis and/or pulmonary embolus.HIGH RISK: Target INR is 2.5-3.5 for patients with mechanical heart valves.PROTHROMBIN [id number] 06:35:00 Test Item Value Reference Range Interpretation Comments PROTIME (BEAKER) (test code = 21.5 seconds 11.7-14.7 H 759) INR (BEAKER) (test code = 370) 2.0 <=5.9 RECOMMENDED COUMADIN/WARFARIN INR THERAPY RANGESSTANDARD DOSE: 2.0 - 3.0 Includes: PROPHYLAXIS forvenous thrombosis, systemic embolization; TREATMENT for venous thrombosis and/or pulmonary embolus.HIGH RISK: Target INR is 2.5-3.5 for patients with mechanical heart valves.[id number] 06:29:00 Test Item Value Reference Range Interpretation Comments MAGNESIUM (BEAKER) 1.9 mg/dL 1.6-2.6 Specimen slightly (test code = 627) hemolyzed BASIC METABOLIC [id number] 06:29:00 Test Item Value Reference Range Interpretation Comments SODIUM (BEAKER) 136 meq/L 136-145 (test code = 381) POTASSIUM (BEAKER) 4.0 meq/L 3.5-5.1 Specimen slightly (test code = 379) hemolyzed CHLORIDE (BEAKER) 100 meq/L 98-107 (test code = 382) CO2 (BEAKER) (test 30 meq/L 22-29 H code = 355) BLOOD UREA NITROGEN 6 mg/dL 7-21 L (BEAKER) (test code = 354) CREATININE (BEAKER) 0.70 mg/dL 0.57-1.25 Specimen slightly (test code = 358) hemolyzed GLUCOSE RANDOM 114 mg/dL 70-105 H (BEAKER) (test code = 652) CALCIUM (BEAKER) 8.4 mg/dL 8.4-10.2 (test code = 697) EGFR (BEAKER) (test 133 mL/min/1.73 ESTIM ATED GFR IS code = 1092) sq m NOT ACCURATE CREATININE CLEARANCE IN PREDICTING GLOMERULAR FILTRATION RATE . ESTIMATED GFR I S NOT APPLICABLE FOR DIALYSIS PATIEN TS. HEPATIC FUNCTION [id number] 06:29:00 Test Item Value Reference Range Interpretation Comments TOTAL PROTEIN (BEAKER) 6.2 gm/dL 6.0-8.3 Speci men slightly (test code = 770) hemolyzed ALBUMIN (BEAKER) (test 2.4 g/dL 3.5-5.0 L Speci men slightly code = 1145) hemolyzed BILIRUBIN TOTAL 0.7 mg/dL 0.2-1.2 Specimen sli ghtly (BEAKER) (test code = hemoly zed 377) BILIRUBIN DIRECT 0.3 mg/dL 0.1-0.5 Specimen sl ightly (BEAKER) (test code = hemoly zed 706) ALKALINE PHOSPHATASE 105 U/L 40-150 (BEAKER) (test code = 346) AST (SGOT) (BEAKER) 56 U/L 5-34 H Specimen slightly (test code = 353) hemolyzed ALT (SGPT) (BEAKER) 51 U/L 6-55 Specimen slightly (test code = 347) hemolyzed CBC W/PLT COUNT & AUTO [id number] 06:00:00 Test Item Value Reference Range Interpretation Comments WHITE BLOOD CELL COUNT (BEAKER) 10.8 K/ L 3.5-10.5 H (test code = 775) RED BLOOD CELL COUNT (BEAKER) 3.49 M/ L 4.63-6.08 L (test code = 761) HEMOGLOBIN (BEAKER) (test code = 10.4 GM/DL 13.7-17.5 L 410) HEMATOCRIT (BEAKER) (test code = 32.7 % 40.1-51.0 L 411) MEAN CORPUSCULAR VOLUME (BEAKER) 93.7 fL 79.0-92.2 H (test code = 753) MEAN CORPUSCULAR HEMOGLOBIN 29.8 pg 25.7-32.2 (BEAKER) (test code = 751) MEAN CORPUSCULAR HEMOGLOBIN CONC 31.8 GM/DL 32.3-36.5 L (BEAKER) (test code = 752) RED CELL DISTRIBUTION WIDTH 14.0 % 11.6-14.4 (BEAKER) (test code = 412) PLATELET COUNT (BEAKER) (test 497 K/CU MM 150-450 H code = 756) MEAN PLATELET VOLUME (BEAKER) 10.7 fL 9.4-12.4 (test code = 754) NUCLEATED RED BLOOD CELLS 0 /100 WBC 0-0 (BEAKER) (test code = 413) NEUTROPHILS RELATIVE PERCENT 68 % (BEAKER) (test code = 429) LYMPHOCYTES RELATIVE PERCENT 17 % (BEAKER) (test code = 430) MONOCYTES RELATIVE PERCENT 10 % (BEAKER) (test code = 431) EOSINOPHILS RELATIVE PERCENT 3 % (BEAKER) (test code = 432) BASOPHILS RELATIVE PERCENT 1 % (BEAKER) (test code = 437) NEUTROPHILS ABSOLUTE COUNT 7.27 K/ L 1.78-5.38 H (BEAKER) (test code = 670) LYMPHOCYTES ABSOLUTE COUNT 1.87 K/ L 1.32-3.57 (BEAKER) (test code = 414) MONOCYTES ABSOLUTE COUNT (BEAKER) 1.04 K/ L 0.30-0.82 H (test code = 415) EOSINOPHILS ABSOLUTE COUNT 0.37 K/ L 0.04-0.54 (BEAKER) (test code = 416) BASOPHILS ABSOLUTE COUNT (BEAKER) 0.07 K/ L 0.01-0.08 (test code = 417) IMMATURE GRANULOCYTES-RELATIVE 1 % 0-1 PERCENT (BEAKER) (test code = 2801) BODY FLUID CULTURE + GRAM [id number] 18:11:00 Test Item Value Reference Range Interpretation Comments CULTURE (BEAKER) (test No growth code = 1095) GRAM STAIN RESULT <1+ White blood cells (BEAKER) (test code = seen 1123) GRAM STAIN RESULT No organisms seen (BEAKER) (test code = 71770) [id number] 07:01:00 Test Item Value Reference Range Interpretation Comments MAGNESIUM (BEAKER) (test code = 1.9 mg/dL 1.6-2.6 627) BASIC METABOLIC [id number] 07:01:00 Test Item Value Reference Range Interpretation Comments SODIUM (BEAKER) 138 meq/L 136-145 (test code = 381) POTASSIUM (BEAKER) 3.8 meq/L 3.5-5.1 (test code = 379) CHLORIDE (BEAKER) 102 meq/L 98-107 (test code = 382) CO2 (BEAKER) (test 29 meq/L 22-29 code = 355) BLOOD UREA NITROGEN 7 mg/dL 7-21 (BEAKER) (test code = 354) CREATININE (BEAKER) 0.70 mg/dL 0.57-1.25 (test code = 358) GLUCOSE RANDOM 126 mg/dL 70-105 H (BEAKER) (test code = 652) CALCIUM (BEAKER) 8.6 mg/dL 8.4-10.2 (test code = 697) EGFR (BEAKER) (test 133 mL/min/1.73 ESTIM ATED GFR IS code = 1092) sq m NOT ACCURATE CREATININE CLEARANCE IN PREDICTING GLOMERULAR FILTRATION RATE . ESTIMATED GFR I S NOT APPLICABLE FOR DIALYSIS PATIEN TS. HEPATIC FUNCTION [id number] 07:01:00 Test Item Value Reference Range Interpretation Comments TOTAL PROTEIN (BEAKER) (test code = 6.1 gm/dL 6.0-8.3 770) ALBUMIN (BEAKER) (test code = 1145) 2.5 g/dL 3.5-5.0 L BILIRUBIN TOTAL (BEAKER) (test code 0.7 mg/dL 0.2-1.2 = 377) BILIRUBIN DIRECT (BEAKER) (test 0.6 mg/dL 0.1-0.5 H code = 706) ALKALINE PHOSPHATASE (BEAKER) (test 119 U/L 40-150 code = 346) AST (SGOT) (BEAKER) (test code = 72 U/L 5-34 H 353) ALT (SGPT) (BEAKER) (test code = 66 U/L 6-55 H 347) [id number] 06:32:00 Test Item Value Reference Range Interpretation Comments PROTIME (BEAKER) (test code = 22.5 seconds 11.7-14.7 H 759) INR (BEAKER) (test code = 370) 2.1 <=5.9 PARTIAL THROMBOPLASTIN TIME 56.8 seconds 22.5-36.0 H (BEAKER) (test code = 760) RECOMMENDED COUMADIN/WARFARIN INR THERAPY RANGESSTANDARD DOSE: 2.0 - 3.0 Includes: PROPHYLAXIS forvenous thrombosis, systemic embolization; TREATMENT for venous thrombosis and/or pulmonary embolus.HIGH RISK: Target INR is 2.5-3.5 for patients with mechanical heart valves.CBC W/PLT COUNT & AUTO DIFFERENTIAL 2018-06-10 06:26:00 Test Item Value Reference Range Interpretation Comments WHITE BLOOD CELL COUNT (BEAKER) 12.5 K/ L 3.5-10.5 H (test code = 775) RED BLOOD CELL COUNT (BEAKER) 3.56 M/ L 4.63-6.08 L (test code = 761) HEMOGLOBIN (BEAKER) (test code = 10.3 GM/DL 13.7-17.5 L 410) HEMATOCRIT (BEAKER) (test code = 33.3 % 40.1-51.0 L 411) MEAN CORPUSCULAR VOLUME (BEAKER) 93.5 fL 79.0-92.2 H (test code = 753) MEAN CORPUSCULAR HEMOGLOBIN 28.9 pg 25.7-32.2 (BEAKER) (test code = 751) MEAN CORPUSCULAR HEMOGLOBIN CONC 30.9 GM/DL 32.3-36.5 L (BEAKER) (test code = 752) RED CELL DISTRIBUTION WIDTH 14.3 % 11.6-14.4 (BEAKER) (test code = 412) PLATELET COUNT (BEAKER) (test 470 K/CU MM 150-450 H code = 756) MEAN PLATELET VOLUME (BEAKER) 10.8 fL 9.4-12.4 (test code = 754) NUCLEATED RED BLOOD CELLS 0 /100 WBC 0-0 (BEAKER) (test code = 413) NEUTROPHILS RELATIVE PERCENT 71 % (BEAKER) (test code = 429) LYMPHOCYTES RELATIVE PERCENT 13 % (BEAKER) (test code = 430) MONOCYTES RELATIVE PERCENT 10 % (BEAKER) (test code = 431) EOSINOPHILS RELATIVE PERCENT 4 % (BEAKER) (test code = 432) BASOPHILS RELATIVE PERCENT 1 % (BEAKER) (test code = 437) NEUTROPHILS ABSOLUTE COUNT 8.89 K/ L 1.78-5.38 H (BEAKER) (test code = 670) LYMPHOCYTES ABSOLUTE COUNT 1.64 K/ L 1.32-3.57 (BEAKER) (test code = 414) MONOCYTES ABSOLUTE COUNT (BEAKER) 1.24 K/ L 0.30-0.82 H (test code = 415) EOSINOPHILS ABSOLUTE COUNT 0.46 K/ L 0.04-0.54 (BEAKER) (test code = 416) BASOPHILS ABSOLUTE COUNT (BEAKER) 0.06 K/ L 0.01-0.08 (test code = 417) IMMATURE GRANULOCYTES-RELATIVE 1 % 0-1 PERCENT (BEAKER) (test code = 2801) BLOOD [id number] 22:01:00 Test Item Value Reference Range Interpretation Comments CULTURE (BEAKER) (test No growth in 5 days code = 1095) BLOOD [id number] 22:01:00 Test Item Value Reference Range Interpretation Comments CULTURE (BEAKER) (test No growth in 5 days code = 1095) [id number] 07:20:00 Test Item Value Reference Range Interpretation Comments PROTIME (BEAKER) (test code = 21.3 seconds 11.7-14.7 H 759) INR (BEAKER) (test code = 370) 2.0 <=5.9 PARTIAL THROMBOPLASTIN TIME 50.7 seconds 22.5-36.0 H (BEAKER) (test code = 760) RECOMMENDED COUMADIN/WARFARIN INR THERAPY RANGESSTANDARD DOSE: 2.0 - 3.0 Includes: PROPHYLAXIS forvenous thrombosis, systemic embolization; TREATMENT for venous thrombosis and/or pulmonary embolus.HIGH RISK: Target INR is 2.5-3.5 for patients with mechanical heart valves.CBC W/PLT COUNT & AUTO DIFFERENTIAL 2018-06-09 07:09:00 Test Item Value Reference Range Interpretation Comments WHITE BLOOD CELL COUNT (BEAKER) 13.7 K/ L 3.5-10.5 H (test code = 775) RED BLOOD CELL COUNT (BEAKER) 3.79 M/ L 4.63-6.08 L (test code = 761) HEMOGLOBIN (BEAKER) (test code = 11.0 GM/DL 13.7-17.5 L 410) HEMATOCRIT (BEAKER) (test code = 35.6 % 40.1-51.0 L 411) MEAN CORPUSCULAR VOLUME (BEAKER) 93.9 fL 79.0-92.2 H (test code = 753) MEAN CORPUSCULAR HEMOGLOBIN 29.0 pg 25.7-32.2 (BEAKER) (test code = 751) MEAN CORPUSCULAR HEMOGLOBIN CONC 30.9 GM/DL 32.3-36.5 L (BEAKER) (test code = 752) RED CELL DISTRIBUTION WIDTH 14.6 % 11.6-14.4 H (BEAKER) (test code = 412) PLATELET COUNT (BEAKER) (test 450 K/CU MM 150-450 code = 756) MEAN PLATELET VOLUME (BEAKER) 10.7 fL 9.4-12.4 (test code = 754) NUCLEATED RED BLOOD CELLS 0 /100 WBC 0-0 (BEAKER) (test code = 413) NEUTROPHILS RELATIVE PERCENT 74 % (BEAKER) (test code = 429) LYMPHOCYTES RELATIVE PERCENT 12 % (BEAKER) (test code = 430) MONOCYTES RELATIVE PERCENT 10 % (BEAKER) (test code = 431) EOSINOPHILS RELATIVE PERCENT 3 % (BEAKER) (test code = 432) BASOPHILS RELATIVE PERCENT 1 % (BEAKER) (test code = 437) NEUTROPHILS ABSOLUTE COUNT 10.10 K/ L 1.78-5.38 H (BEAKER) (test code = 670) LYMPHOCYTES ABSOLUTE COUNT 1.64 K/ L 1.32-3.57 (BEAKER) (test code = 414) MONOCYTES ABSOLUTE COUNT (BEAKER) 1.34 K/ L 0.30-0.82 H (test code = 415) EOSINOPHILS ABSOLUTE COUNT 0.40 K/ L 0.04-0.54 (BEAKER) (test code = 416) BASOPHILS ABSOLUTE COUNT (BEAKER) 0.07 K/ L 0.01-0.08 (test code = 417) IMMATURE GRANULOCYTES-RELATIVE 1 % 0-1 PERCENT (BEAKER) (test code = 2801) [id number] 07:08:00 Test Item Value Reference Range Interpretation Comments MAGNESIUM (BEAKER) (test code = 2.1 mg/dL 1.6-2.6 627) BASIC METABOLIC [id number] 07:08:00 Test Item Value Reference Range Interpretation Comments SODIUM (BEAKER) 140 meq/L 136-145 (test code = 381) POTASSIUM (BEAKER) 4.0 meq/L 3.5-5.1 (test code = 379) CHLORIDE (BEAKER) 102 meq/L 98-107 (test code = 382) CO2 (BEAKER) (test 29 meq/L 22-29 code = 355) BLOOD UREA NITROGEN 8 mg/dL 7-21 (BEAKER) (test code = 354) CREATININE (BEAKER) 0.72 mg/dL 0.57-1.25 (test code = 358) GLUCOSE RANDOM 109 mg/dL 70-105 H (BEAKER) (test code = 652) CALCIUM (BEAKER) 8.7 mg/dL 8.4-10.2 (test code = 697) EGFR (BEAKER) (test 129 mL/min/1.73 ESTIM ATED GFR IS code = 1092) sq m NOT ACCURATE CREATININE CLEARANCE IN PREDICTING GLOMERULAR FILTRATION RATE . ESTIMATED GFR I S NOT APPLICABLE FOR DIALYSIS PATIEN TS. HEPATIC FUNCTION [id number] 07:08:00 Test Item Value Reference Range Interpretation Comments TOTAL PROTEIN (BEAKER) (test code = 6.5 gm/dL 6.0-8.3 770) ALBUMIN (BEAKER) (test code = 1145) 2.6 g/dL 3.5-5.0 L BILIRUBIN TOTAL (BEAKER) (test code 0.9 mg/dL 0.2-1.2 = 377) BILIRUBIN DIRECT (BEAKER) (test 0.7 mg/dL 0.1-0.5 H code = 706) ALKALINE PHOSPHATASE (BEAKER) (test 133 U/L 40-150 code = 346) AST (SGOT) (BEAKER) (test code = 87 U/L 5-34 H 353) ALT (SGPT) (BEAKER) (test code = 69 U/L 6-55 H 347) PROTHROMBIN [id number] 06:54:00 Test Item Value Reference Range Interpretation Comments PROTIME (BEAKER) (test code = 21.3 seconds 11.7-14.7 H 759) INR (BEAKER) (test code = 370) 2.0 <=5.9 RECOMMENDED COUMADIN/WARFARIN INR THERAPY RANGESSTANDARD DOSE: 2.0 - 3.0 Includes: PROPHYLAXIS forvenous thrombosis, systemic embolization; TREATMENT for venous thrombosis and/or pulmonary embolus.HIGH RISK: Target INR is 2.5-3.5 for patients with mechanical heart valves.[id number] 06:24:00 Test Item Value Reference Range Interpretation Comments MAGNESIUM (BEAKER) (test code = 2.0 mg/dL 1.6-2.6 627) BASIC METABOLIC [id number] 06:24:00 Test Item Value Reference Range Interpretation Comments SODIUM (BEAKER) 139 meq/L 136-145 (test code = 381) POTASSIUM (BEAKER) 3.7 meq/L 3.5-5.1 (test code = 379) CHLORIDE (BEAKER) 103 meq/L 98-107 (test code = 382) CO2 (BEAKER) (test 27 meq/L 22-29 code = 355) BLOOD UREA NITROGEN 8 mg/dL 7-21 (BEAKER) (test code = 354) CREATININE (BEAKER) 0.68 mg/dL 0.57-1.25 (test code = 358) GLUCOSE RANDOM 133 mg/dL 70-105 H (BEAKER) (test code = 652) CALCIUM (BEAKER) 8.4 mg/dL 8.4-10.2 (test code = 697) EGFR (BEAKER) (test 138 mL/min/1.73 ESTIM ATED GFR IS code = 1092) sq m NOT ACCURATE CREATININE CLEARANCE IN PREDICTING GLOMERULAR FILTRATION RATE . ESTIMATED GFR I S NOT APPLICABLE FOR DIALYSIS PATIEN TS. HEPATIC FUNCTION [id number] 06:24:00 Test Item Value Reference Range Interpretation Comments TOTAL PROTEIN (BEAKER) (test code = 6.1 gm/dL 6.0-8.3 770) ALBUMIN (BEAKER) (test code = 1145) 2.5 g/dL 3.5-5.0 L BILIRUBIN TOTAL (BEAKER) (test code 1.0 mg/dL 0.2-1.2 = 377) BILIRUBIN DIRECT (BEAKER) (test 0.8 mg/dL 0.1-0.5 H code = 706) ALKALINE PHOSPHATASE (BEAKER) (test 130 U/L 40-150 code = 346) AST (SGOT) (BEAKER) (test code = 71 U/L 5-34 H 353) ALT (SGPT) (BEAKER) (test code = 56 U/L 6-55 H 347) CBC W/PLT COUNT & AUTO [id number] 06:17:00 Test Item Value Reference Range Interpretation Comments WHITE BLOOD CELL COUNT (BEAKER) 17.6 K/ L 3.5-10.5 H (test code = 775) RED BLOOD CELL COUNT (BEAKER) 3.67 M/ L 4.63-6.08 L (test code = 761) HEMOGLOBIN (BEAKER) (test code = 10.7 GM/DL 13.7-17.5 L 410) HEMATOCRIT (BEAKER) (test code = 34.1 % 40.1-51.0 L 411) MEAN CORPUSCULAR VOLUME (BEAKER) 92.9 fL 79.0-92.2 H (test code = 753) MEAN CORPUSCULAR HEMOGLOBIN 29.2 pg 25.7-32.2 (BEAKER) (test code = 751) MEAN CORPUSCULAR HEMOGLOBIN CONC 31.4 GM/DL 32.3-36.5 L (BEAKER) (test code = 752) RED CELL DISTRIBUTION WIDTH 14.6 % 11.6-14.4 H (BEAKER) (test code = 412) PLATELET COUNT (BEAKER) (test 395 K/CU MM 150-450 code = 756) MEAN PLATELET VOLUME (BEAKER) 10.6 fL 9.4-12.4 (test code = 754) NUCLEATED RED BLOOD CELLS 0 /100 WBC 0-0 (BEAKER) (test code = 413) NEUTROPHILS RELATIVE PERCENT 79 % (BEAKER) (test code = 429) LYMPHOCYTES RELATIVE PERCENT 8 % (BEAKER) (test code = 430) MONOCYTES RELATIVE PERCENT 9 % (BEAKER) (test code = 431) EOSINOPHILS RELATIVE PERCENT 2 % (BEAKER) (test code = 432) BASOPHILS RELATIVE PERCENT 0 % (BEAKER) (test code = 437) NEUTROPHILS ABSOLUTE COUNT 13.89 K/ L 1.78-5.38 H (BEAKER) (test code = 670) LYMPHOCYTES ABSOLUTE COUNT 1.41 K/ L 1.32-3.57 (BEAKER) (test code = 414) MONOCYTES ABSOLUTE COUNT (BEAKER) 1.58 K/ L 0.30-0.82 H (test code = 415) EOSINOPHILS ABSOLUTE COUNT 0.41 K/ L 0.04-0.54 (BEAKER) (test code = 416) BASOPHILS ABSOLUTE COUNT (BEAKER) 0.06 K/ L 0.01-0.08 (test code = 417) IMMATURE GRANULOCYTES-RELATIVE 1 % 0-1 PERCENT (BEAKER) (test code = 2801) PROTHROMBIN [id number] 05:39:00 Test Item Value Reference Range Interpretation Comments PROTIME (BEAKER) (test code = 22.4 seconds 11.7-14.7 H 759) INR (BEAKER) (test code = 370) 2.1 <=5.9 RECOMMENDED COUMADIN/WARFARIN INR THERAPY RANGESSTANDARD DOSE: 2.0 - 3.0 Includes: PROPHYLAXIS forvenous thrombosis, systemic embolization; TREATMENT for venous thrombosis and/or pulmonary embolus.HIGH RISK: Target INR is 2.5-3.5 for patients with mechanical heart valves.[id number] 05:39:00 Test Item Value Reference Range Interpretation Comments PROTIME (BEAKER) (test code = 22.4 seconds 11.7-14.7 H 759) INR (BEAKER) (test code = 370) 2.1 <=5.9 PARTIAL THROMBOPLASTIN TIME 48.4 seconds 22.5-36.0 H (BEAKER) (test code = 760) RECOMMENDED COUMADIN/WARFARIN INR THERAPY RANGESSTANDARD DOSE: 2.0 - 3.0 Includes: PROPHYLAXIS forvenous thrombosis, systemic embolization; TREATMENT for venous thrombosis and/or pulmonary embolus.HIGH RISK: Target INR is 2.5-3.5 for patients with mechanical heart valves.VANCOMYCIN LEVEL, [id number] 05:28:00 Test Item Value Reference Range Interpretation Comments VANCOMYCIN TROUGH (BEAKER) (test 14.0 ug/mL 10.0-20.0 code = 522) RAD, CHEST, 1 VIEW, NON [id number] 16:09:00Reason for exam:->feverShould this be performed at [...] upper quadrant. Signed: Josy Price MDReport Verified Date/Time: 06/07/2018 16:09:31 Reading Location: [facility] Women INCUBATED 1:1 MIXING [id number] 16:01:00 Test Item Value Reference Range Interpretation Comments IMMEDIATE PT (BEAKER) 22.5 seconds 11.7-14.7 H (test code = 1487) IMMEDIATE PTT (BEAKER) 54.8 seconds 22.5-36.0 H (test code = 1488) IMMEDIATE 1:1 MIX PT 14.1 seconds 11.7-14.7 (BEAKER) (test code = 4179224586) IMMEDIATE 1:1 MIX PTT 40.9 seconds 22.5-36.0 H (BEAKER) (test code = 6596696784) 1:1 MIX, 1 HOUR INC PT 14.9 seconds (BEAKER) (test code = 1501) 1:1 MIX, 1 HOUR INC PTT 43.6 seconds (BEAKER) (test code = 1502) MIXING STUDY PATHOLOGIST Prolonged PT and PTT INTERPRETATION (BEAKER) with complete (test code = 6339923860) correction of PT and incomplete correction of PTT, 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 [id number] Sade Mccormack MD (BEAKER) (test code = (electronic 2608) signature) URINALYSIS W/ REFLEX URINE [id number] 14:23:00 Test Item Value Reference Range Interpretation Comments COLOR (BEAKER) (test code = 470) Yellow CLARITY (BEAKER) (test code = 469) Clear SPECIFIC GRAVITY UA (BEAKER) (test 1.012 1.001-1.035 code = 468) PH UA (BEAKER) (test code = 467) 6.5 5.0-8.0 PROTEIN UA (BEAKER) (test code = 20 mg/dL Negative A 464) GLUCOSE UA (BEAKER) (test code = Negative Negative 365) KETONES UA (BEAKER) (test code = 40 mg/dL Negative A 371) BILIRUBIN UA (BEAKER) (test code = Negative Negative 462) BLOOD UA (BEAKER) (test code = 461) Trace Negative A NITRITE UA (BEAKER) (test code = Negative Negative 465) LEUKOCYTE ESTERASE UA (BEAKER) Negative Negative (test code = 466) UROBILINOGEN UA (BEAKER) (test code 0.2 mg/dL 0.2-1.0 = 463) RBC UA (BEAKER) (test code = 519) 2 /HPF WBC UA (BEAKER) (test code = 520) 3 /HPF MUCUS (BEAKER) (test code = 1574) Rare SOURCE(BEAKER) (test code = 2795) [id number] 04:19:00 Test Item Value Reference Range Interpretation Comments PROTIME (BEAKER) (test code = 22.3 seconds 11.7-14.7 H 759) INR (BEAKER) (test code = 370) 2.1 <=5.9 PARTIAL THROMBOPLASTIN TIME 51.1 seconds 22.5-36.0 H (BEAKER) (test code = 760) RECOMMENDED COUMADIN/WARFARIN INR THERAPY RANGESSTANDARD DOSE: 2.0 - 3.0 Includes: PROPHYLAXIS forvenous thrombosis, systemic embolization; TREATMENT for venous thrombosis and/or pulmonary embolus.HIGH RISK: Target INR is 2.5-3.5 for patients with mechanical heart valves.PROTHROMBIN [id number] 04:18:00 Test Item Value Reference Range Interpretation Comments PROTIME (BEAKER) (test code = 22.3 seconds 11.7-14.7 H 759) INR (BEAKER) (test code = 370) 2.1 <=5.9 RECOMMENDED COUMADIN/WARFARIN INR THERAPY RANGESSTANDARD DOSE: 2.0 - 3.0 Includes: PROPHYLAXIS forvenous thrombosis, systemic embolization; TREATMENT for venous thrombosis and/or pulmonary embolus.HIGH RISK: Target INR is 2.5-3.5 for patients with mechanical heart valves.[id number] 04:08:00 Test Item Value Reference Range Interpretation Comments MAGNESIUM (BEAKER) (test code = 1.8 mg/dL 1.6-2.6 627) BASIC METABOLIC [id number] 04:08:00 Test Item Value Reference Range Interpretation Comments SODIUM (BEAKER) 139 meq/L 136-145 (test code = 381) POTASSIUM (BEAKER) 3.7 meq/L 3.5-5.1 (test code = 379) CHLORIDE (BEAKER) 103 meq/L 98-107 (test code = 382) CO2 (BEAKER) (test 27 meq/L 22-29 code = 355) BLOOD UREA NITROGEN 9 mg/dL 7-21 (BEAKER) (test code = 354) CREATININE (BEAKER) 0.69 mg/dL 0.57-1.25 (test code = 358) GLUCOSE RANDOM 134 mg/dL 70-105 H (BEAKER) (test code = 652) CALCIUM (BEAKER) 8.5 mg/dL 8.4-10.2 (test code = 697) EGFR (BEAKER) (test 136 mL/min/1.73 ESTIM ATED GFR IS code = 1092) sq m NOT ACCURATE CREATININE CLEARANCE IN PREDICTING GLOMERULAR FILTRATION RATE . ESTIMATED GFR I S NOT APPLICABLE FOR DIALYSIS PATIEN TS. HEPATIC FUNCTION [id number] 04:08:00 Test Item Value Reference Range Interpretation Comments TOTAL PROTEIN (BEAKER) (test code = 6.2 gm/dL 6.0-8.3 770) ALBUMIN (BEAKER) (test code = 1145) 2.6 g/dL 3.5-5.0 L BILIRUBIN TOTAL (BEAKER) (test code 1.2 mg/dL 0.2-1.2 = 377) BILIRUBIN DIRECT (BEAKER) (test 1.0 mg/dL 0.1-0.5 H code = 706) ALKALINE PHOSPHATASE (BEAKER) (test 140 U/L 40-150 code = 346) AST (SGOT) (BEAKER) (test code = 72 U/L 5-34 H 353) ALT (SGPT) (BEAKER) (test code = 59 U/L 6-55 H 347) CBC W/PLT COUNT & AUTO [id number] 03:56:00 Test Item Value Reference Range Interpretation Comments WHITE BLOOD CELL COUNT (BEAKER) 20.1 K/ L 3.5-10.5 H (test code = 775) RED BLOOD CELL COUNT (BEAKER) 3.70 M/ L 4.63-6.08 L (test code = 761) HEMOGLOBIN (BEAKER) (test code = 11.1 GM/DL 13.7-17.5 L 410) HEMATOCRIT (BEAKER) (test code = 33.8 % 40.1-51.0 L 411) MEAN CORPUSCULAR VOLUME (BEAKER) 91.4 fL 79.0-92.2 (test code = 753) MEAN CORPUSCULAR HEMOGLOBIN 30.0 pg 25.7-32.2 (BEAKER) (test code = 751) MEAN CORPUSCULAR HEMOGLOBIN CONC 32.8 GM/DL 32.3-36.5 (BEAKER) (test code = 752) RED CELL DISTRIBUTION WIDTH 14.6 % 11.6-14.4 H (BEAKER) (test code = 412) PLATELET COUNT (BEAKER) (test 416 K/CU MM 150-450 code = 756) MEAN PLATELET VOLUME (BEAKER) 10.6 fL 9.4-12.4 (test code = 754) NUCLEATED RED BLOOD CELLS 0 /100 WBC 0-0 (BEAKER) (test code = 413) NEUTROPHILS RELATIVE PERCENT 80 % (BEAKER) (test code = 429) LYMPHOCYTES RELATIVE PERCENT 8 % (BEAKER) (test code = 430) MONOCYTES RELATIVE PERCENT 8 % (BEAKER) (test code = 431) EOSINOPHILS RELATIVE PERCENT 2 % (BEAKER) (test code = 432) BASOPHILS RELATIVE PERCENT 0 % (BEAKER) (test code = 437) NEUTROPHILS ABSOLUTE COUNT 16.05 K/ L 1.78-5.38 H (BEAKER) (test code = 670) LYMPHOCYTES ABSOLUTE COUNT 1.64 K/ L 1.32-3.57 (BEAKER) (test code = 414) MONOCYTES ABSOLUTE COUNT (BEAKER) 1.65 K/ L 0.30-0.82 H (test code = 415) EOSINOPHILS ABSOLUTE COUNT 0.30 K/ L 0.04-0.54 (BEAKER) (test code = 416) BASOPHILS ABSOLUTE COUNT (BEAKER) 0.05 K/ L 0.01-0.08 (test code = 417) IMMATURE GRANULOCYTES-RELATIVE 2 % 0-1 H PERCENT (BEAKER) (test code = 2801) FL, [id number] 18:30:00Reason for exam:->stonesPROCEDURE PERFORMED IN O.R. - PLEASE REFER TO THE INTRAOPERATIVE REPORT. CT, DRAINAGE, ABDOMINAL 2018-06-06 18:06:00Reason for exam:->drainage of pancreatic fluid collection; concern for infection given ongoing fevers, WBC 24kFINAL REPORT INDICATION:28-year-old male with acute pancreatitis and acute necrotic collection. Request for percutaneous image guided drainage catheter placement. COMPARISON:June 05, 2018 TECHNIQUE:CT-guided placement of 10 Malaysian drainage catheter in left upper quadrant peripancreatic [...] and the introducer needle removed. An 8 Malaysian and then 10 Malaysian dilator were used. Then, a 10 Malaysian multisidehole drainage catheter was placed over the [...] 45 minutes. IMPRESSION: CT-guided placement of 10 Malaysian drainage catheter in left upper quadrant peripancreatic collection. Thin dark fluid was encountered. Signed: Aldo Felton MDReport Verified Date/Time: 06/06/2018 18:06:54 Reading Location: [facility] B1 C013Y CT Body Reading Room Electronically sign ed by: ALDO FELTON M.D. on 06/06/2018 06:06 PMC. DIFFICILE GDH [id number] 10:12:00 Test Item Value Reference Range Interpretation Comments CDT TOXIN (test code Negative Negative = [id number]) CDT GDH ANTIGEN (test Negative Negative No ind ication of code = [id number]) Clostridi um difficile infection and n o colonization. Discontinue ent starla isolation and t herapy. Testing performed by [employer] Rapid Cassette Assay. For GDH, published sensitivity of the assay is 98.7% compared to cytotoxicity testing. For Toxin AB, published sensitivity is 87.8% and specificity 99.4% compared to cytotoxicity testing.Verification of kit performance was done by the [facility] Microbiology Lab prior to clinical use.VANCOMYCIN LEVEL, [id number] 04:02:00 Test Item Value Reference Range Interpretation Comments VANCOMYCIN TROUGH (BEAKER) (test 9.9 ug/mL 10.0-20.0 L code = 522) [id number] 02:24:00 Test Item Value Reference Range Interpretation Comments MAGNESIUM (BEAKER) (test code = 1.8 mg/dL 1.6-2.6 627) BASIC METABOLIC [id number] 02:24:00 Test Item Value Reference Range Interpretation Comments SODIUM (BEAKER) 139 meq/L 136-145 (test code = 381) POTASSIUM (BEAKER) 3.6 meq/L 3.5-5.1 (test code = 379) CHLORIDE (BEAKER) 104 meq/L 98-107 (test code = 382) CO2 (BEAKER) (test 28 meq/L 22-29 code = 355) BLOOD UREA NITROGEN 9 mg/dL 7-21 (BEAKER) (test code = 354) CREATININE (BEAKER) 0.73 mg/dL 0.57-1.25 (test code = 358) GLUCOSE RANDOM 126 mg/dL 70-105 H (BEAKER) (test code = 652) CALCIUM (BEAKER) 8.4 mg/dL 8.4-10.2 (test code = 697) EGFR (BEAKER) (test 127 mL/min/1.73 ESTIM ATED GFR IS code = 1092) sq m NOT ACCURATE CREATININE CLEARANCE IN PREDICTING GLOMERULAR FILTRATION RATE . ESTIMATED GFR I S NOT APPLICABLE FOR DIALYSIS PATIEN TS. HEPATIC FUNCTION [id number] 02:24:00 Test Item Value Reference Range Interpretation Comments TOTAL PROTEIN (BEAKER) (test code = 6.2 gm/dL 6.0-8.3 770) ALBUMIN (BEAKER) (test code = 1145) 2.6 g/dL 3.5-5.0 L BILIRUBIN TOTAL (BEAKER) (test code 1.7 mg/dL 0.2-1.2 H = 377) BILIRUBIN DIRECT (BEAKER) (test 1.2 mg/dL 0.1-0.5 H code = 706) ALKALINE PHOSPHATASE (BEAKER) (test 133 U/L 40-150 code = 346) AST (SGOT) (BEAKER) (test code = 89 U/L 5-34 H 353) ALT (SGPT) (BEAKER) (test code = 60 U/L 6-55 H 347) [id number] 02:12:00 Test Item Value Reference Range Interpretation Comments PROTIME (BEAKER) (test code = 20.9 seconds 11.7-14.7 H 759) INR (BEAKER) (test code = 370) 1.9 <=5.9 PARTIAL THROMBOPLASTIN TIME 48.9 seconds 22.5-36.0 H (BEAKER) (test code = 760) RECOMMENDED COUMADIN/WARFARIN INR THERAPY RANGESSTANDARD DOSE: 2.0 - 3.0 Includes: PROPHYLAXIS forvenous thrombosis, systemic embolization; TREATMENT for venous thrombosis and/or pulmonary embolus.HIGH RISK: Target INR is 2.5-3.5 for patients with mechanical heart valves.PROTHROMBIN [id number] 02:11:00 Test Item Value Reference Range Interpretation Comments PROTIME (BEAKER) (test code = 20.9 seconds 11.7-14.7 H 759) INR (BEAKER) (test code = 370) 1.9 <=5.9 RECOMMENDED COUMADIN/WARFARIN INR THERAPY RANGESSTANDARD DOSE: 2.0 - 3.0 Includes: PROPHYLAXIS forvenous thrombosis, systemic embolization; TREATMENT for venous thrombosis and/or pulmonary embolus.HIGH RISK: Target INR is 2.5-3.5 for patients with mechanical heart valves.CBC W/PLT COUNT & AUTO DIFFERENTIAL 2018-06-06 02:00:00 Test Item Value Reference Range Interpretation Comments WHITE BLOOD CELL COUNT (BEAKER) 24.9 K/ L 3.5-10.5 H (test code = 775) RED BLOOD CELL COUNT (BEAKER) 3.67 M/ L 4.63-6.08 L (test code = 761) HEMOGLOBIN (BEAKER) (test code = 11.0 GM/DL 13.7-17.5 L 410) HEMATOCRIT (BEAKER) (test code = 34.0 % 40.1-51.0 L 411) MEAN CORPUSCULAR VOLUME (BEAKER) 92.6 fL 79.0-92.2 H (test code = 753) MEAN CORPUSCULAR HEMOGLOBIN 30.0 pg 25.7-32.2 (BEAKER) (test code = 751) MEAN CORPUSCULAR HEMOGLOBIN CONC 32.4 GM/DL 32.3-36.5 (BEAKER) (test code = 752) RED CELL DISTRIBUTION WIDTH 14.8 % 11.6-14.4 H (BEAKER) (test code = 412) PLATELET COUNT (BEAKER) (test 366 K/CU MM 150-450 code = 756) MEAN PLATELET VOLUME (BEAKER) 10.5 fL 9.4-12.4 (test code = 754) NUCLEATED RED BLOOD CELLS 0 /100 WBC 0-0 (BEAKER) (test code = 413) NEUTROPHILS RELATIVE PERCENT 81 % (BEAKER) (test code = 429) LYMPHOCYTES RELATIVE PERCENT 7 % (BEAKER) (test code = 430) MONOCYTES RELATIVE PERCENT 8 % (BEAKER) (test code = 431) EOSINOPHILS RELATIVE PERCENT 2 % (BEAKER) (test code = 432) BASOPHILS RELATIVE PERCENT 0 % (BEAKER) (test code = 437) NEUTROPHILS ABSOLUTE COUNT 20.12 K/ L 1.78-5.38 H (BEAKER) (test code = 670) LYMPHOCYTES ABSOLUTE COUNT 1.67 K/ L 1.32-3.57 (BEAKER) (test code = 414) MONOCYTES ABSOLUTE COUNT (BEAKER) 1.96 K/ L 0.30-0.82 H (test code = 415) EOSINOPHILS ABSOLUTE COUNT 0.49 K/ L 0.04-0.54 (BEAKER) (test code = 416) BASOPHILS ABSOLUTE COUNT (BEAKER) 0.09 K/ L 0.01-0.08 H (test code = 417) IMMATURE GRANULOCYTES-RELATIVE 2 % 0-1 H PERCENT (BEAKER) (test code = 2801) [id number] 16:33:00 Test Item Value Reference Range Interpretation Comments FIBRINOGEN LEVEL (BEAKER) (test 852 mg/dl 225-434 H code = 658) CT, [id number] 12:46:00FINAL REPORT CT abdomen and pelvis with [...] suggest abscess, although this possibility is not e ntirely excluded.4. Diffuse fatty infiltration of the liver.5. Common bile duct stent in place, without evidence of biliary dilation. Signed: Keegan Lee MDReport Verified Date/Time: 06/05/2018 12:46:00 Reading Location: [facility] Diagnostic Imaging Reading Room - [place] [id number] CBC W/PLT COUNT & AUTO DIFFERENTIAL 2018-06-05 10:12:00 Test Item Value Reference Range Interpretation Comments WHITE BLOOD CELL COUNT (BEAKER) 24.1 K/ L 3.5-10.5 H (test code = 775) RED BLOOD CELL COUNT (BEAKER) 3.89 M/ L 4.63-6.08 L (test code = 761) HEMOGLOBIN (BEAKER) (test code = 11.5 GM/DL 13.7-17.5 L 410) HEMATOCRIT (BEAKER) (test code = 35.5 % 40.1-51.0 L 411) MEAN CORPUSCULAR VOLUME (BEAKER) 91.3 fL 79.0-92.2 (test code = 753) MEAN CORPUSCULAR HEMOGLOBIN 29.6 pg 25.7-32.2 (BEAKER) (test code = 751) MEAN CORPUSCULAR HEMOGLOBIN CONC 32.4 GM/DL 32.3-36.5 (BEAKER) (test code = 752) RED CELL DISTRIBUTION WIDTH 14.6 % 11.6-14.4 H (BEAKER) (test code = 412) PLATELET COUNT (BEAKER) (test 355 K/CU MM 150-450 code = 756) MEAN PLATELET VOLUME (BEAKER) 10.8 fL 9.4-12.4 (test code = 754) NUCLEATED RED BLOOD CELLS 0 /100 WBC 0-0 (BEAKER) (test code = 413) (CELLAVISION MANUAL DIFF)2018-06-05 10:12:00 Test Item Value Reference Range Interpretation Comments NEUTROPHILS - REL 75 % (CELLAVISION)(BEAKER) (test code = 2816) LYMPHOCYTES - REL 11 % (CELLAVISION)(BEAKER) (test code = 2817) MONOCYTES - REL 9 % (CELLAVISION)(BEAKER) (test code = 2818) EOSINOPHILS - REL 5 % (CELLAVISION)(BEAKER) (test code = 2819) NEUTROPHILS - ABS 18.08 K/ul 1.78-5.38 H (CELLAVISION)(BEAKER) (test code = 2830) LYMPHOCYTES - ABS 2.65 K/ul 1.32-3.57 (CELLAVISION)(BEAKER) (test code = 2831) MONOCYTES - ABS 2.17 K/uL 0.30-0.82 H (CELLAVISION)(BEAKER) (test code = 2832) EOSINOPHILS - ABS 1.21 K/uL 0.04-0.54 H (CELLAVISION)(BEAKER) (test code = 2834) TOTAL COUNTED (BEAKER) (test code 100 = 1351) RBC MORPHOLOGY (BEAKER) (test code Normal = 762) WBC MORPHOLOGY (BEAKER) (test code Normal = 487) PLT MORPHOLOGY (BEAKER) (test code Normal = 486) ARTIFACT (CELLAVISION)(BEAKER) Present (test code = 3432) PLATELET CONCENTRATION Adequate (CELLAVISION)(BEAKER) (test code = 3438) Received comment: User comments: Slide comments:[id number] 04:13:00 Test Item Value Reference Range Interpretation Comments PROTIME (BEAKER) (test code = 20.4 seconds 11.7-14.7 H 759) INR (BEAKER) (test code = 370) 1.9 <=5.9 PARTIAL THROMBOPLASTIN TIME 45.0 seconds 22.5-36.0 H (BEAKER) (test code = 760) RECOMMENDED COUMADIN/WARFARIN INR THERAPY RANGESSTANDARD DOSE: 2.0 - 3.0 Includes: PROPHYLAXIS forvenous thrombosis, systemic embolization; TREATMENT for venous thrombosis and/or pulmonary embolus.HIGH RISK: Target INR is 2.5-3.5 for patients with mechanical heart valves.[id number] 04:12:00 Test Item Value Reference Range Interpretation Comments MAGNESIUM (BEAKER) (test code = 1.8 mg/dL 1.6-2.6 627) BASIC METABOLIC [id number] 04:12:00 Test Item Value Reference Range Interpretation Comments SODIUM (BEAKER) 135 meq/L 136-145 L (test code = 381) POTASSIUM (BEAKER) 3.4 meq/L 3.5-5.1 L (test code = 379) CHLORIDE (BEAKER) 102 meq/L 98-107 (test code = 382) CO2 (BEAKER) (test 24 meq/L 22-29 code = 355) BLOOD UREA NITROGEN 9 mg/dL 7-21 (BEAKER) (test code = 354) CREATININE (BEAKER) 0.72 mg/dL 0.57-1.25 (test code = 358) GLUCOSE RANDOM 120 mg/dL 70-105 H (BEAKER) (test code = 652) CALCIUM (BEAKER) 8.3 mg/dL 8.4-10.2 L (test code = 697) EGFR (BEAKER) (test 129 mL/min/1.73 ESTIM ATED GFR IS code = 1092) sq m NOT ACCURATE CREATININE CLEARANCE IN PREDICTING GLOMERULAR FILTRATION RATE . ESTIMATED GFR I S NOT APPLICABLE FOR DIALYSIS PATIEN TS. HEPATIC FUNCTION [id number] 04:12:00 Test Item Value Reference Range Interpretation Comments TOTAL PROTEIN (BEAKER) (test code = 6.3 gm/dL 6.0-8.3 770) ALBUMIN (BEAKER) (test code = 1145) 2.7 g/dL 3.5-5.0 L BILIRUBIN TOTAL (BEAKER) (test code 2.3 mg/dL 0.2-1.2 H = 377) BILIRUBIN DIRECT (BEAKER) (test 1.7 mg/dL 0.1-0.5 H code = 706) ALKALINE PHOSPHATASE (BEAKER) (test 126 U/L 40-150 code = 346) AST (SGOT) (BEAKER) (test code = 93 U/L 5-34 H 353) ALT (SGPT) (BEAKER) (test code = 55 U/L 6-55 347) PROTHROMBIN [id number] 04:12:00 Test Item Value Reference Range Interpretation Comments PROTIME (BEAKER) (test code = 20.4 seconds 11.7-14.7 H 759) INR (BEAKER) (test code = 370) 1.9 <=5.9 RECOMMENDED COUMADIN/WARFARIN INR THERAPY RANGESSTANDARD DOSE: 2.0 - 3.0 Includes: PROPHYLAXIS forvenous thrombosis, systemic embolization; TREATMENT for venous thrombosis and/or pulmonary embolus.HIGH RISK: Target INR is 2.5-3.5 for patients with mechanical heart valves.BLOOD [id number] 02:02:00 Test Item Value Reference Range Interpretation Comments CULTURE (BEAKER) (test No growth in 5 days code = 1095) BLOOD [id number] 02:02:00 Test Item Value Reference Range Interpretation Comments CULTURE (BEAKER) (test No growth in 5 days code = 1095) CBC W/PLT COUNT & AUTO [id number] 22:18:00 Test Item Value Reference Range Interpretation Comments WHITE BLOOD CELL COUNT (BEAKER) 20.1 K/ L 3.5-10.5 H (test code = 775) RED BLOOD CELL COUNT (BEAKER) 4.01 M/ L 4.63-6.08 L (test code = 761) HEMOGLOBIN (BEAKER) (test code = 11.9 GM/DL 13.7-17.5 L 410) HEMATOCRIT (BEAKER) (test code = 36.7 % 40.1-51.0 L 411) MEAN CORPUSCULAR VOLUME (BEAKER) 91.5 fL 79.0-92.2 (test code = 753) MEAN CORPUSCULAR HEMOGLOBIN 29.7 pg 25.7-32.2 (BEAKER) (test code = 751) MEAN CORPUSCULAR HEMOGLOBIN CONC 32.4 GM/DL 32.3-36.5 (BEAKER) (test code = 752) RED CELL DISTRIBUTION WIDTH 14.5 % 11.6-14.4 H (BEAKER) (test code = 412) PLATELET COUNT (BEAKER) (test 332 K/CU MM 150-450 code = 756) MEAN PLATELET VOLUME (BEAKER) 10.8 fL 9.4-12.4 (test code = 754) NUCLEATED RED BLOOD CELLS 0 /100 WBC 0-0 (BEAKER) (test code = 413) (CELLAVISION MANUAL DIFF)2018-06-04 22:18:00 Test Item Value Reference Range Interpretation Comments NEUTROPHILS - REL 79 % (CELLAVISION)(BEAKER) (test code = 2816) LYMPHOCYTES - REL 6 % (CELLAVISION)(BEAKER) (test code = 2817) MONOCYTES - REL 10 % (CELLAVISION)(BEAKER) (test code = 2818) EOSINOPHILS - REL 1 % (CELLAVISION)(BEAKER) (test code = 2819) BANDS - REL (CELLAVISION)(BEAKER) 3 % 0-10 (test code = 2826) ATYPICAL LYMPHOCYTES - REL 1 % 0-0 H (CELLAVISION)(BEAKER) (test code = 2829) NEUTROPHILS - ABS 15.88 K/ul 1.78-5.38 H (CELLAVISION)(BEAKER) (test code = 2830) LYMPHOCYTES - ABS 1.21 K/ul 1.32-3.57 L (CELLAVISION)(BEAKER) (test code = 2831) MONOCYTES - ABS 2.01 K/uL 0.30-0.82 H (CELLAVISION)(BEAKER) (test code = 2832) EOSINOPHILS - ABS 0.20 K/uL 0.04-0.54 (CELLAVISION)(BEAKER) (test code = 2834) BANDS - ABS (CELLAVISION)(BEAKER) 0.60 K/uL 0.00-0.80 (test code = 2840) ATYPICAL LYMPHOCYTES - ABS 0.20 K/uL 0.00-0.00 H (CELLAVISION)(BEAKER) (test code = 2858) TOTAL COUNTED (BEAKER) (test code 100 = 1351) WBC MORPHOLOGY (BEAKER) (test code Normal = 487) GIANT PLATELETS (BEAKER) (test Present code = 313) POLYCHROMATOPHILLIC RBCS(BEAKER) 1+ few (test code = 478) ARTIFACT (CELLAVISION)(BEAKER) Present (test code = 3432) PLATELET CONCENTRATION Adequate (CELLAVISION)(BEAKER) (test code = 3438) Received comment: User comments: Slide comments:[id number] 14:28:00 Test Item Value Reference Range Interpretation Comments PROCALCITONIN (BEAKER) (test code 0.62 ng/mL <0.05 H = 3036) SEPSIS RISK (ng/mL)Low: 0.05-0.50Intermediate: 0.51-2.00High: >=2.01LACTIC ACID, [id number] 14:07:00 Test Item Value Reference Range Interpretation Comments LACTATE BLOOD VENOUS 1.1 mmol/L 0.5-2.2 Specime n moderately (2) (BEAKER) (test hemolyzed code = 2872) [id number] 06:34:00 Test Item Value Reference Range Interpretation Comments MAGNESIUM (BEAKER) (test code = 1.7 mg/dL 1.6-2.6 627) BASIC METABOLIC [id number] 06:34:00 Test Item Value Reference Range Interpretation Comments SODIUM (BEAKER) 136 meq/L 136-145 (test code = 381) POTASSIUM (BEAKER) 3.7 meq/L 3.5-5.1 (test code = 379) CHLORIDE (BEAKER) 103 meq/L 98-107 (test code = 382) CO2 (BEAKER) (test 24 meq/L 22-29 code = 355) BLOOD UREA NITROGEN 10 mg/dL 7-21 (BEAKER) (test code = 354) CREATININE (BEAKER) 0.61 mg/dL 0.57-1.25 (test code = 358) GLUCOSE RANDOM 131 mg/dL 70-105 H (BEAKER) (test code = 652) CALCIUM (BEAKER) 8.5 mg/dL 8.4-10.2 (test code = 697) EGFR (BEAKER) (test 156 mL/min/1.73 ESTIM ATED GFR IS code = 1092) sq m NOT ACCURATE CREATININE CLEARANCE IN PREDICTING GLOMERULAR FILTRATION RATE . ESTIMATED GFR I S NOT APPLICABLE FOR DIALYSIS PATIEN TS. HEPATIC FUNCTION [id number] 06:34:00 Test Item Value Reference Range Interpretation Comments TOTAL PROTEIN (BEAKER) (test code = 6.0 gm/dL 6.0-8.3 770) ALBUMIN (BEAKER) (test code = 1145) 2.6 g/dL 3.5-5.0 L BILIRUBIN TOTAL (BEAKER) (test code 2.0 mg/dL 0.2-1.2 H = 377) BILIRUBIN DIRECT (BEAKER) (test 1.6 mg/dL 0.1-0.5 H code = 706) ALKALINE PHOSPHATASE (BEAKER) (test 117 U/L 40-150 code = 346) AST (SGOT) (BEAKER) (test code = 78 U/L 5-34 H 353) ALT (SGPT) (BEAKER) (test code = 53 U/L 6-55 347) [id number] 06:06:00 Test Item Value Reference Range Interpretation Comments PROTIME (BEAKER) (test code = 18.7 seconds 11.7-14.7 H 759) INR (BEAKER) (test code = 370) 1.7 <=5.9 PARTIAL THROMBOPLASTIN TIME 38.7 seconds 22.5-36.0 H (BEAKER) (test code = 760) RECOMMENDED COUMADIN/WARFARIN INR THERAPY RANGESSTANDARD DOSE: 2.0 - 3.0 Includes: PROPHYLAXIS forvenous thrombosis, systemic embolization; TREATMENT for venous thrombosis and/or pulmonary embolus.HIGH RISK: Target INR is 2.5-3.5 for patients with mechanical heart valves.PROTHROMBIN [id number] 06:05:00 Test Item Value Reference Range Interpretation Comments PROTIME (BEAKER) (test code = 18.7 seconds 11.7-14.7 H 759) INR (BEAKER) (test code = 370) 1.7 <=5.9 RECOMMENDED COUMADIN/WARFARIN INR THERAPY RANGESSTANDARD DOSE: 2.0 - 3.0 Includes: PROPHYLAXIS forvenous thrombosis, systemic embolization; TREATMENT for venous thrombosis and/or pulmonary embolus.HIGH RISK: Target INR is 2.5-3.5 for patients with mechanical heart valves.[id number] 06:22:00 Test Item Value Reference Range Interpretation Comments MAGNESIUM (BEAKER) (test code = 1.8 mg/dL 1.6-2.6 627) BASIC METABOLIC [id number] 06:22:00 Test Item Value Reference Range Interpretation Comments SODIUM (BEAKER) 135 meq/L 136-145 L (test code = 381) POTASSIUM (BEAKER) 3.9 meq/L 3.5-5.1 (test code = 379) CHLORIDE (BEAKER) 103 meq/L 98-107 (test code = 382) CO2 (BEAKER) (test 25 meq/L code = 355) BLOOD UREA NITROGEN 12 mg/dL 7-21 (BEAKER) (test code = 354) CREATININE (BEAKER) 0.65 mg/dL 0.57-1.25 (test code = 358) GLUCOSE RANDOM 135 mg/dL 70-105 H (BEAKER) (test code = 652) CALCIUM (BEAKER) 8.1 mg/dL 8.4-10.2 L (test code = 697) EGFR (BEAKER) (test 145 mL/min/1.73 ESTIM ATED GFR IS code = 1092) sq m NOT ACCURATE CREATININE CLEARANCE IN PREDICTING GLOMERULAR FILTRATION RATE . ESTIMATED GFR I S NOT APPLICABLE FOR DIALYSIS PATIEN TS. HEPATIC FUNCTION [id number] 06:22:00 Test Item Value Reference Range Interpretation Comments TOTAL PROTEIN (BEAKER) (test code = 6.1 gm/dL 6.0-8.3 770) ALBUMIN (BEAKER) (test code = 1145) 2.5 g/dL 3.5-5.0 L BILIRUBIN TOTAL (BEAKER) (test code 2.3 mg/dL 0.2-1.2 H = 377) BILIRUBIN DIRECT (BEAKER) (test 1.7 mg/dL 0.1-0.5 H code = 706) ALKALINE PHOSPHATASE (BEAKER) (test 112 U/L 40-150 code = 346) AST (SGOT) (BEAKER) (test code = 74 U/L 5-34 H 353) ALT (SGPT) (BEAKER) (test code = 46 U/L 6-55 347) [id number] 06:08:00 Test Item Value Reference Range Interpretation Comments PROTIME (BEAKER) (test code = 17.4 seconds 11.7-14.7 H 759) INR (BEAKER) (test code = 370) 1.5 <=5.9 PARTIAL THROMBOPLASTIN TIME 39.9 seconds 22.5-36.0 H (BEAKER) (test code = 760) RECOMMENDED COUMADIN/WARFARIN INR THERAPY RANGESSTANDARD DOSE: 2.0 - 3.0 Includes: PROPHYLAXIS forvenous thrombosis, systemic embolization; TREATMENT for venous thrombosis and/or pulmonary embolus.HIGH RISK: Target INR is 2.5-3.5 for patients with mechanical heart valves.PROTHROMBIN [id number] 06:07:00 Test Item Value Reference Range Interpretation Comments PROTIME (BEAKER) (test code = 17.4 seconds 11.7-14.7 H 759) INR (BEAKER) (test code = 370) 1.5 <=5.9 RECOMMENDED COUMADIN/WARFARIN INR THERAPY RANGESSTANDARD DOSE: 2.0 - 3.0 Includes: PROPHYLAXIS forvenous thrombosis, systemic embolization; TREATMENT for venous thrombosis and/or pulmonary embolus.HIGH RISK: Target INR is 2.5-3.5 for patients with mechanical heart valves.CBC W/PLT COUNT & AUTO DIFFERENTIAL 2018-06-03 05:56:00 Test Item Value Reference Range Interpretation Comments WHITE BLOOD CELL COUNT (BEAKER) 19.1 K/ L 3.5-10.5 H (test code = 775) RED BLOOD CELL COUNT (BEAKER) 4.10 M/ L 4.63-6.08 L (test code = 761) HEMOGLOBIN (BEAKER) (test code = 12.2 GM/DL 13.7-17.5 L 410) HEMATOCRIT (BEAKER) (test code = 37.5 % 40.1-51.0 L 411) MEAN CORPUSCULAR VOLUME (BEAKER) 91.5 fL 79.0-92.2 (test code = 753) MEAN CORPUSCULAR HEMOGLOBIN 29.8 pg 25.7-32.2 (BEAKER) (test code = 751) MEAN CORPUSCULAR HEMOGLOBIN CONC 32.5 GM/DL 32.3-36.5 (BEAKER) (test code = 752) RED CELL DISTRIBUTION WIDTH 14.4 % 11.6-14.4 (BEAKER) (test code = 412) PLATELET COUNT (BEAKER) (test 306 K/CU MM 150-450 code = 756) MEAN PLATELET VOLUME (BEAKER) 10.9 fL 9.4-12.4 (test code = 754) NUCLEATED RED BLOOD CELLS 0 /100 WBC 0-0 (BEAKER) (test code = 413) NEUTROPHILS RELATIVE PERCENT 78 % (BEAKER) (test code = 429) LYMPHOCYTES RELATIVE PERCENT 9 % (BEAKER) (test code = 430) MONOCYTES RELATIVE PERCENT 8 % (BEAKER) (test code = 431) EOSINOPHILS RELATIVE PERCENT 2 % (BEAKER) (test code = 432) BASOPHILS RELATIVE PERCENT 0 % (BEAKER) (test code = 437) NEUTROPHILS ABSOLUTE COUNT 14.83 K/ L 1.78-5.38 H (BEAKER) (test code = 670) LYMPHOCYTES ABSOLUTE COUNT 1.66 K/ L 1.32-3.57 (BEAKER) (test code = 414) MONOCYTES ABSOLUTE COUNT (BEAKER) 1.48 K/ L 0.30-0.82 H (test code = 415) EOSINOPHILS ABSOLUTE COUNT 0.32 K/ L 0.04-0.54 (BEAKER) (test code = 416) BASOPHILS ABSOLUTE COUNT (BEAKER) 0.07 K/ L 0.01-0.08 (test code = 417) IMMATURE GRANULOCYTES-RELATIVE 4 % 0-1 H PERCENT (BEAKER) (test code = 2801) CBC W/PLT COUNT & AUTO [id number] 04:50:00 Test Item Value Reference Range Interpretation Comments WHITE BLOOD CELL COUNT (BEAKER) 16.6 K/ L 3.5-10.5 H (test code = 775) RED BLOOD CELL COUNT (BEAKER) 3.82 M/ L 4.63-6.08 L (test code = 761) HEMOGLOBIN (BEAKER) (test code = 11.3 GM/DL 13.7-17.5 L 410) HEMATOCRIT (BEAKER) (test code = 35.6 % 40.1-51.0 L 411) MEAN CORPUSCULAR VOLUME (BEAKER) 93.2 fL 79.0-92.2 H (test code = 753) MEAN CORPUSCULAR HEMOGLOBIN 29.6 pg 25.7-32.2 (BEAKER) (test code = 751) MEAN CORPUSCULAR HEMOGLOBIN CONC 31.7 GM/DL 32.3-36.5 L (BEAKER) (test code = 752) RED CELL DISTRIBUTION WIDTH 14.3 % 11.6-14.4 (BEAKER) (test code = 412) PLATELET COUNT (BEAKER) (test 240 K/CU MM 150-450 code = 756) MEAN PLATELET VOLUME (BEAKER) 11.0 fL 9.4-12.4 (test code = 754) NUCLEATED RED BLOOD CELLS 0 /100 WBC 0-0 (BEAKER) (test code = 413) NEUTROPHILS RELATIVE PERCENT 76 % (BEAKER) (test code = 429) LYMPHOCYTES RELATIVE PERCENT 11 % (BEAKER) (test code = 430) MONOCYTES RELATIVE PERCENT 8 % (BEAKER) (test code = 431) EOSINOPHILS RELATIVE PERCENT 2 % (BEAKER) (test code = 432) BASOPHILS RELATIVE PERCENT 0 % (BEAKER) (test code = 437) NEUTROPHILS ABSOLUTE COUNT 12.63 K/ L 1.78-5.38 H (BEAKER) (test code = 670) LYMPHOCYTES ABSOLUTE COUNT 1.90 K/ L 1.32-3.57 (BEAKER) (test code = 414) MONOCYTES ABSOLUTE COUNT (BEAKER) 1.29 K/ L 0.30-0.82 H (test code = 415) EOSINOPHILS ABSOLUTE COUNT 0.32 K/ L 0.04-0.54 (BEAKER) (test code = 416) BASOPHILS ABSOLUTE COUNT (BEAKER) 0.06 K/ L 0.01-0.08 (test code = 417) IMMATURE GRANULOCYTES-RELATIVE 2 % 0-1 H PERCENT (BEAKER) (test code = 2801) [id number] 04:26:00 Test Item Value Reference Range Interpretation Comments MAGNESIUM (BEAKER) (test code = 1.7 mg/dL 1.6-2.6 627) BASIC METABOLIC [id number] 04:26:00 Test Item Value Reference Range Interpretation Comments SODIUM (BEAKER) 137 meq/L 136-145 (test code = 381) POTASSIUM (BEAKER) 3.7 meq/L 3.5-5.1 (test code = 379) CHLORIDE (BEAKER) 106 meq/L 98-107 (test code = 382) CO2 (BEAKER) (test 25 meq/L 22-29 code = 355) BLOOD UREA NITROGEN 10 mg/dL 7-21 (BEAKER) (test code = 354) CREATININE (BEAKER) 0.68 mg/dL 0.57-1.25 (test code = 358) GLUCOSE RANDOM 137 mg/dL 70-105 H (BEAKER) (test code = 652) CALCIUM (BEAKER) 8.2 mg/dL 8.4-10.2 L (test code = 697) EGFR (BEAKER) (test 138 mL/min/1.73 ESTIM ATED GFR IS code = 1092) sq m NOT ACCURATE CREATININE CLEARANCE IN PREDICTING GLOMERULAR FILTRATION RATE . ESTIMATED GFR I S NOT APPLICABLE FOR DIALYSIS PATIEN TS. HEPATIC FUNCTION [id number] 04:26:00 Test Item Value Reference Range Interpretation Comments TOTAL PROTEIN (BEAKER) (test code = 5.9 gm/dL 6.0-8.3 L 770) ALBUMIN (BEAKER) (test code = 1145) 2.6 g/dL 3.5-5.0 L BILIRUBIN TOTAL (BEAKER) (test code 2.3 mg/dL 0.2-1.2 H = 377) BILIRUBIN DIRECT (BEAKER) (test 1.8 mg/dL 0.1-0.5 H code = 706) ALKALINE PHOSPHATASE (BEAKER) (test 111 U/L 40-150 code = 346) AST (SGOT) (BEAKER) (test code = 88 U/L 5-34 H 353) ALT (SGPT) (BEAKER) (test code = 54 U/L 6-55 347) PT/[id number] 04:11:00 Test Item Value Reference Range Interpretation Comments PROTIME (BEAKER) (test code = 17.3 seconds 11.7-14.7 H 759) INR (BEAKER) (test code = 370) 1.5 <=5.9 PARTIAL THROMBOPLASTIN TIME 34.7 seconds 22.5-36.0 (BEAKER) (test code = 760) RECOMMENDED COUMADIN/WARFARIN INR THERAPY RANGESSTANDARD DOSE: 2.0 - 3.0 Includes: PROPHYLAXIS forvenous thrombosis, systemic embolization; TREATMENT for venous thrombosis and/or pulmonary embolus.HIGH RISK: Target INR is 2.5-3.5 for patients with mechanical heart valves.PROTHROMBIN TIME/[id number] 04:10:00 Test Item Value Reference Range Interpretation Comments PROTIME (BEAKER) (test code = 17.3 seconds 11.7-14.7 H 759) INR (BEAKER) (test code = 370) 1.5 <=5.9 RECOMMENDED COUMADIN/WARFARIN INR THERAPY RANGESSTANDARD DOSE: 2.0 - 3.0 Includes: PROPHYLAXIS forvenous thrombosis, systemic embolization; TREATMENT for venous thrombosis and/or pulmonary embolus.HIGH RISK: Target INR is 2.5-3.5 for patients with mechanical heart valves.U/S, ABDOMINAL, [id number] 14:19:00Abdomen limited area? Add comment if clarification is [...] MDReport Verified Date/Time: 06/01/2018 14:19:45 Reading Location: [address] Transitional Reading Room CBC W/PLT COUNT & AUTO [id number] 06:28:00 Test Item Value Reference Range Interpretation Comments WHITE BLOOD CELL COUNT (BEAKER) 14.2 K/ L 3.5-10.5 H (test code = 775) RED BLOOD CELL COUNT (BEAKER) 4.02 M/ L 4.63-6.08 L (test code = 761) HEMOGLOBIN (BEAKER) (test code = 11.8 GM/DL 13.7-17.5 L 410) HEMATOCRIT (BEAKER) (test code = 37.3 % 40.1-51.0 L 411) MEAN CORPUSCULAR VOLUME (BEAKER) 92.8 fL 79.0-92.2 H (test code = 753) MEAN CORPUSCULAR HEMOGLOBIN 29.4 pg 25.7-32.2 (BEAKER) (test code = 751) MEAN CORPUSCULAR HEMOGLOBIN CONC 31.6 GM/DL 32.3-36.5 L (BEAKER) (test code = 752) RED CELL DISTRIBUTION WIDTH 14.4 % 11.6-14.4 (BEAKER) (test code = 412) PLATELET COUNT (BEAKER) (test 235 K/CU MM 150-450 code = 756) MEAN PLATELET VOLUME (BEAKER) 11.4 fL 9.4-12.4 (test code = 754) NUCLEATED RED BLOOD CELLS 0 /100 WBC 0-0 (BEAKER) (test code = 413) NEUTROPHILS RELATIVE PERCENT 79 % (BEAKER) (test code = 429) LYMPHOCYTES RELATIVE PERCENT 10 % (BEAKER) (test code = 430) MONOCYTES RELATIVE PERCENT 8 % (BEAKER) (test code = 431) EOSINOPHILS RELATIVE PERCENT 1 % (BEAKER) (test code = 432) BASOPHILS RELATIVE PERCENT 0 % (BEAKER) (test code = 437) NEUTROPHILS ABSOLUTE COUNT 11.26 K/ L 1.78-5.38 H (BEAKER) (test code = 670) LYMPHOCYTES ABSOLUTE COUNT 1.46 K/ L 1.32-3.57 (BEAKER) (test code = 414) MONOCYTES ABSOLUTE COUNT (BEAKER) 1.20 K/ L 0.30-0.82 H (test code = 415) EOSINOPHILS ABSOLUTE COUNT 0.12 K/ L 0.04-0.54 (BEAKER) (test code = 416) BASOPHILS ABSOLUTE COUNT (BEAKER) 0.05 K/ L 0.01-0.08 (test code = 417) IMMATURE GRANULOCYTES-RELATIVE 1 % 0-1 PERCENT (BEAKER) (test code = 2801) [id number] 05:51:00 Test Item Value Reference Range Interpretation Comments MAGNESIUM (BEAKER) (test code = 2.0 mg/dL 1.6-2.6 627) BASIC METABOLIC [id number] 05:51:00 Test Item Value Reference Range Interpretation Comments SODIUM (BEAKER) 140 meq/L 136-145 (test code = 381) POTASSIUM (BEAKER) 3.8 meq/L 3.5-5.1 (test code = 379) CHLORIDE (BEAKER) 106 meq/L 98-107 (test code = 382) CO2 (BEAKER) (test 27 meq/L 22-29 code = 355) BLOOD UREA NITROGEN 13 mg/dL 7-21 (BEAKER) (test code = 354) CREATININE (BEAKER) 0.69 mg/dL 0.57-1.25 (test code = 358) GLUCOSE RANDOM 140 mg/dL 70-105 H (BEAKER) (test code = 652) CALCIUM (BEAKER) 8.2 mg/dL 8.4-10.2 L (test code = 697) EGFR (BEAKER) (test 136 mL/min/1.73 ESTIM ATED GFR IS code = 1092) sq m NOT ACCURATE CREATININE CLEARANCE IN PREDICTING GLOMERULAR FILTRATION RATE . ESTIMATED GFR I S NOT APPLICABLE FOR DIALYSIS PATIEN TS. Specimen slightly ictericHEPATIC FUNCTION [id number] 05:51:00 Test Item Value Reference Range Interpretation Comments TOTAL PROTEIN (BEAKER) (test code = 5.9 gm/dL 6.0-8.3 L 770) ALBUMIN (BEAKER) (test code = 1145) 2.6 g/dL 3.5-5.0 L BILIRUBIN TOTAL (BEAKER) (test code 4.1 mg/dL 0.2-1.2 H = 377) BILIRUBIN DIRECT (BEAKER) (test 3.2 mg/dL 0.1-0.5 H code = 706) ALKALINE PHOSPHATASE (BEAKER) (test 103 U/L 40-150 code = 346) AST (SGOT) (BEAKER) (test code = 95 U/L 5-34 H 353) ALT (SGPT) (BEAKER) (test code = 48 U/L 6-55 347) Specimen slightly ictericPT/[id number] 05:30:00 Test Item Value Reference Range Interpretation Comments PROTIME (BEAKER) (test code = 16.0 seconds 11.7-14.7 H 759) INR (BEAKER) (test code = 370) 1.3 <=5.9 PARTIAL THROMBOPLASTIN TIME 38.9 seconds 22.5-36.0 H (BEAKER) (test code = 760) RECOMMENDED COUMADIN/WARFARIN INR THERAPY RANGESSTANDARD DOSE: 2.0 - 3.0 Includes: PROPHYLAXIS forvenous thrombosis, systemic embolization; TREATMENT for venous thrombosis and/or pulmonary embolus.HIGH RISK: Target INR is 2.5-3.5 for patients with mechanical heart valves.PROTHROMBIN TIME/[id number] 05:29:00 Test Item Value Reference Range Interpretation Comments PROTIME (BEAKER) (test code = 16.0 seconds 11.7-14.7 H 759) INR (BEAKER) (test code = 370) 1.3 <=5.9 RECOMMENDED COUMADIN/WARFARIN INR THERAPY RANGESSTANDARD DOSE: 2.0 - 3.0 Includes: PROPHYLAXIS forvenous thrombosis, systemic embolization; TREATMENT for venous thrombosis and/or pulmonary embolus.HIGH RISK: Target INR is 2.5-3.5 for patients with mechanical heart valves.RAD, CHEST, 1 VIEW, NON [id number] 11:58:00Reason for exam:->pancreatitisShould this be performed at [...] or consolidation inthe left lung base. Signed: Perez Briones MDReport Verified Date/Time: 05/31/2018 11:58:54 Reading Location: [facility] Radiology Reading Room CBC W/PLT COUNT & AUTO [id number] 08:44:00 Test Item Value Reference Range Interpretation Comments WHITE BLOOD CELL COUNT (BEAKER) 21.6 K/ L 3.5-10.5 H (test code = 775) RED BLOOD CELL COUNT (BEAKER) 4.15 M/ L 4.63-6.08 L (test code = 761) HEMOGLOBIN (BEAKER) (test code = 12.3 GM/DL 13.7-17.5 L 410) HEMATOCRIT (BEAKER) (test code = 38.0 % 40.1-51.0 L 411) MEAN CORPUSCULAR VOLUME (BEAKER) 91.6 fL 79.0-92.2 (test code = 753) MEAN CORPUSCULAR HEMOGLOBIN 29.6 pg 25.7-32.2 (BEAKER) (test code = 751) MEAN CORPUSCULAR HEMOGLOBIN CONC 32.4 GM/DL 32.3-36.5 (BEAKER) (test code = 752) RED CELL DISTRIBUTION WIDTH 13.9 % 11.6-14.4 (BEAKER) (test code = 412) PLATELET COUNT (BEAKER) (test 232 K/CU MM 150-450 code = 756) MEAN PLATELET VOLUME (BEAKER) 11.4 fL 9.4-12.4 (test code = 754) NUCLEATED RED BLOOD CELLS 0 /100 WBC 0-0 (BEAKER) (test code = 413) (CELLAVISION MANUAL DIFF)2018-05-31 08:44:00 Test Item Value Reference Range Interpretation Comments NEUTROPHILS - REL 63 % (CELLAVISION)(BEAKER) (test code = 2816) LYMPHOCYTES - REL 5 % (CELLAVISION)(BEAKER) (test code = 2817) MONOCYTES - REL 13 % (CELLAVISION)(BEAKER) (test code = 2818) EOSINOPHILS - REL 1 % (CELLAVISION)(BEAKER) (test code = 2819) BANDS - REL (CELLAVISION)(BEAKER) 18 % 0-10 H (test code = 2826) NEUTROPHILS - ABS 13.61 K/ul 1.78-5.38 H (CELLAVISION)(BEAKER) (test code = 2830) LYMPHOCYTES - ABS 1.08 K/ul 1.32-3.57 L (CELLAVISION)(BEAKER) (test code = 2831) MONOCYTES - ABS 2.81 K/uL 0.30-0.82 H (CELLAVISION)(BEAKER) (test code = 2832) EOSINOPHILS - ABS 0.22 K/uL 0.04-0.54 (CELLAVISION)(BEAKER) (test code = 2834) BANDS - ABS (CELLAVISION)(BEAKER) 3.89 K/uL 0.00-0.80 H (test code = 2840) TOTAL COUNTED (BEAKER) (test code 100 = 1351) RBC MORPHOLOGY (BEAKER) (test code Normal = 762) SMUDGE CELLS (BEAKER) (test code = Present 1371) GIANT PLATELETS (BEAKER) (test Present code = 313) ARTIFACT (CELLAVISION)(BEAKER) Present (test code = 3432) PLATELET CONCENTRATION Adequate (CELLAVISION)(BEAKER) (test code = 3438) Received comment: User comments: Slide comments:[id number] 04:27:00 Test Item Value Reference Range Interpretation Comments MAGNESIUM (BEAKER) (test code = 1.6 mg/dL 1.6-2.6 627) BASIC METABOLIC [id number] 04:27:00 Test Item Value Reference Range Interpretation Comments SODIUM (BEAKER) 139 meq/L 136-145 (test code = 381) POTASSIUM (BEAKER) 3.7 meq/L 3.5-5.1 (test code = 379) CHLORIDE (BEAKER) 101 meq/L 98-107 (test code = 382) CO2 (BEAKER) (test 28 meq/L 22-29 code = 355) BLOOD UREA NITROGEN 21 mg/dL 7-21 (BEAKER) (test code = 354) CREATININE (BEAKER) 0.80 mg/dL 0.57-1.25 (test code = 358) GLUCOSE RANDOM 135 mg/dL 70-105 H (BEAKER) (test code = 652) CALCIUM (BEAKER) 8.0 mg/dL 8.4-10.2 L (test code = 697) EGFR (BEAKER) (test 114 mL/min/1.73 ESTIM ATED GFR IS code = 1092) sq m NOT ACCURATE CREATININE CLEARANCE IN PREDICTING GLOMERULAR FILTRATION RATE . ESTIMATED GFR I S NOT APPLICABLE FOR DIALYSIS PATIEN TS. Specimen moderately ictericHEPATIC FUNCTION [id number] 04:27:00 Test Item Value Reference Range Interpretation Comments TOTAL PROTEIN (BEAKER) (test code = 6.1 gm/dL 6.0-8.3 770) ALBUMIN (BEAKER) (test code = 1145) 2.7 g/dL 3.5-5.0 L BILIRUBIN TOTAL (BEAKER) (test code 5.2 mg/dL 0.2-1.2 H = 377) BILIRUBIN DIRECT (BEAKER) (test 4.1 mg/dL 0.1-0.5 H code = 706) ALKALINE PHOSPHATASE (BEAKER) (test 80 U/L 40-150 code = 346) AST (SGOT) (BEAKER) (test code = 39 U/L 5-34 H 353) ALT (SGPT) (BEAKER) (test code = 29 U/L 6-55 347) Specimen moderately ictericPT/[id number] 04:15:00 Test Item Value Reference Range Interpretation Comments PROTIME (BEAKER) (test code = 17.0 seconds 11.7-14.7 H 759) INR (BEAKER) (test code = 370) 1.4 <=5.9 PARTIAL THROMBOPLASTIN TIME 39.4 seconds 22.5-36.0 H (BEAKER) (test code = 760) RECOMMENDED COUMADIN/WARFARIN INR THERAPY RANGESSTANDARD DOSE: 2.0 - 3.0 Includes: PROPHYLAXIS forvenous thrombosis, systemic embolization; TREATMENT for venous thrombosis and/or pulmonary embolus.HIGH RISK: Target INR is 2.5-3.5 for patients with mechanical heart valves.PROTHROMBIN TIME/[id number] 04:14:00 Test Item Value Reference Range Interpretation Comments PROTIME (BEAKER) (test code = 17.0 seconds 11.7-14.7 H 759) INR (BEAKER) (test code = 370) 1.4 <=5.9 RECOMMENDED COUMADIN/WARFARIN INR THERAPY RANGESSTANDARD DOSE: 2.0 - 3.0 Includes: PROPHYLAXIS forvenous thrombosis, systemic embolization; TREATMENT for venous thrombosis and/or pulmonary embolus.HIGH RISK: Target INR is 2.5-3.5 for patients with mechanical heart valves.URINALYSIS W/ REFLEX URINE CULTURE 2018-05-30 21:53:00 Test Item Value Reference Range Interpretation Comments COLOR (BEAKER) (test code = 470) Dark Yellow CLARITY (BEAKER) (test code = Clear 469) SPECIFIC GRAVITY UA (BEAKER) 1.050 1.001-1.035 H (test code = 468) PH UA (BEAKER) (test code = 467) 6.5 5.0-8.0 PROTEIN UA (BEAKER) (test code = 100 mg/dL Negative A 464) GLUCOSE UA (BEAKER) (test code = Negative Negative 365) KETONES UA (BEAKER) (test code = 80 mg/dL Negative A 371) BILIRUBIN UA (BEAKER) (test code Positive Negative A = 462) BLOOD UA (BEAKER) (test code = Small Negative A 461) NITRITE UA (BEAKER) (test code = Negative Negative 465) LEUKOCYTE ESTERASE UA (BEAKER) Negative Negative (test code = 466) UROBILINOGEN UA (BEAKER) (test 2.0 mg/dL 0.2-1.0 H code = 463) RBC UA (BEAKER) (test code = 519) 20 /HPF WBC UA (BEAKER) (test code = 520) 1 /HPF SQUAMOUS EPITHELIAL (BEAKER) < /HPF (test code = 516) CRYSTALS, URINE (BEAKER) (test Rare code = 1521) SOURCE(BEAKER) (test code = 2795) CBC W/PLT COUNT & AUTO [id number] 21:33:00 Test Item Value Reference Range Interpretation Comments WHITE BLOOD CELL COUNT (BEAKER) 26.6 K/ L 3.5-10.5 H (test code = 775) RED BLOOD CELL COUNT (BEAKER) 4.57 M/ L 4.63-6.08 L (test code = 761) HEMOGLOBIN (BEAKER) (test code = 13.6 GM/DL 13.7-17.5 L 410) HEMATOCRIT (BEAKER) (test code = 41.6 % 40.1-51.0 411) MEAN CORPUSCULAR VOLUME (BEAKER) 91.0 fL 79.0-92.2 (test code = 753) MEAN CORPUSCULAR HEMOGLOBIN 29.8 pg 25.7-32.2 (BEAKER) (test code = 751) MEAN CORPUSCULAR HEMOGLOBIN CONC 32.7 GM/DL 32.3-36.5 (BEAKER) (test code = 752) RED CELL DISTRIBUTION WIDTH 14.1 % 11.6-14.4 (BEAKER) (test code = 412) PLATELET COUNT (BEAKER) (test 287 K/CU MM 150-450 code = 756) MEAN PLATELET VOLUME (BEAKER) 11.8 fL 9.4-12.4 (test code = 754) NUCLEATED RED BLOOD CELLS 0 /100 WBC 0-0 (BEAKER) (test code = 413) (CELLAVISION MANUAL DIFF)2018-05-30 21:33:00 Test Item Value Reference Range Interpretation Comments NEUTROPHILS - REL 84 % (CELLAVISION)(BEAKER) (test code = 2816) LYMPHOCYTES - REL 4 % (CELLAVISION)(BEAKER) (test code = 2817) MONOCYTES - REL 6 % (CELLAVISION)(BEAKER) (test code = 2818) EOSINOPHILS - REL 1 % (CELLAVISION)(BEAKER) (test code = 2819) BANDS - REL (CELLAVISION)(BEAKER) 5 % 0-10 (test code = 2826) NEUTROPHILS - ABS 22.34 K/ul 1.78-5.38 H (CELLAVISION)(BEAKER) (test code = 2830) LYMPHOCYTES - ABS 1.06 K/ul 1.32-3.57 L (CELLAVISION)(BEAKER) (test code = 2831) MONOCYTES - ABS 1.60 K/uL 0.30-0.82 H (CELLAVISION)(BEAKER) (test code = 2832) EOSINOPHILS - ABS 0.27 K/uL 0.04-0.54 (CELLAVISION)(BEAKER) (test code = 2834) BANDS - ABS (CELLAVISION)(BEAKER) 1.33 K/uL 0.00-0.80 H (test code = 2840) TOTAL COUNTED (BEAKER) (test code 100 = 1351) RBC MORPHOLOGY (BEAKER) (test code Normal = 762) SMUDGE CELLS (BEAKER) (test code = Present 1371) GIANT PLATELETS (BEAKER) (test Present code = 313) VACUOLATED NEUTROPHILS (BEAKER) Present (test code = 483) ARTIFACT (CELLAVISION)(BEAKER) Present (test code = 3432) PLATELET CONCENTRATION Adequate (CELLAVISION)(BEAKER) (test code = 3438) Received comment: User comments: Slide comments:TROPONIN [id number] 21:32:00 Test Item Value Reference Range Interpretation Comments TROPONIN I (BEAKER) (test code = 397) < ng/mL 0.00-0.03 Troponin I (TnI) levels [...] acute neurological disease, and persistent tachyarrhythmia.BASIC METABOLIC [id number] 21:29:00 Test Item Value Reference Range Interpretation Comments SODIUM (BEAKER) 134 meq/L 136-145 L (test code = 381) POTASSIUM (BEAKER) 3.6 meq/L 3.5-5.1 (test code = 379) CHLORIDE (BEAKER) 99 meq/L 98-107 (test code = 382) CO2 (BEAKER) (test 25 meq/L 22-29 code = 355) BLOOD UREA NITROGEN 25 mg/dL 7-21 H (BEAKER) (test code = 354) CREATININE (BEAKER) 0.80 mg/dL 0.57-1.25 (test code = 358) GLUCOSE RANDOM 144 mg/dL 70-105 H (BEAKER) (test code = 652) CALCIUM (BEAKER) 7.8 mg/dL 8.4-10.2 L (test code = 697) EGFR (BEAKER) (test 114 mL/min/1.73 ESTIM ATED GFR IS code = 1092) sq m NOT ACCURATE CREATININE CLEARANCE IN PREDICTING GLOMERULAR FILTRATION RATE . ESTIMATED GFR I S NOT APPLICABLE FOR DIALYSIS PATIEN TS. Specimen moderately [id number] 21:27:00 Test Item Value Reference Range Interpretation Comments MAGNESIUM (BEAKER) (test code = 1.6 mg/dL 1.6-2.6 627) LIPID [id number] 21:27:00 Test Item Value Reference Range Interpretation Comments TRIGLYCERIDES (BEAKER) (test code = 102 mg/dL 540) CHOLESTEROL (BEAKER) (test code = 101 mg/dL 631) HDL CHOLESTEROL (BEAKER) (test code 17 mg/dL = 976) LDL CHOLESTEROL CALCULATED (BEAKER) 64 mg/dL (test code = 633) Triglyceride Reference Range: Low Risk <150 Borderline 150-199 High Risk 200-499 Very High Risk >=500Cholesterol Reference Range: Low Risk <200 Borderline 200-239 High Risk >240HDL Cholesterol Reference Range: Low Risk >=60 High Risk <40LDL Cholesterol Reference Range: Optimal <100 Near Optimal 100-129 Borderline 130-159 High 160-189 Very High >=190 Specimen moderatelyictericHEPATIC FUNCTION [id number] 21:27:00 Test Item Value Reference Range Interpretation Comments TOTAL PROTEIN (BEAKER) (test code = 6.5 gm/dL 6.0-8.3 770) ALBUMIN (BEAKER) (test code = 1145) 2.9 g/dL 3.5-5.0 L BILIRUBIN TOTAL (BEAKER) (test code 5.1 mg/dL 0.2-1.2 H = 377) BILIRUBIN DIRECT (BEAKER) (test 3.9 mg/dL 0.1-0.5 H code = 706) ALKALINE PHOSPHATASE (BEAKER) (test 87 U/L 40-150 code = 346) AST (SGOT) (BEAKER) (test code = 38 U/L 5-34 H 353) ALT (SGPT) (BEAKER) (test code = 28 U/L 6-55 347) Specimen moderately ictericGAMMA GLUTAMYL TRANSFERASE (GGT)2018-05-30 21:27:00 Test Item Value Reference Range Interpretation Comments GAMMA GLUTAMYL TRANSFERASE (BEAKER) 55 U/L 9-64 (test code = 364) Specimen moderately [id number] 21:27:00 Test Item Value Reference Range Interpretation Comments LIPASE (BEAKER) (test code = 749) 227 U/L 8-78 H Specimen moderately ictericPROTHROMBIN TIME/[id number] 21:05:00 Test Item Value Reference Range Interpretation Comments PROTIME (BEAKER) (test code = 17.1 seconds 11.7-14.7 H 759) INR (BEAKER) (test code = 370) 1.4 <=5.9 RECOMMENDED COUMADIN/WARFARIN INR THERAPY RANGESSTANDARD DOSE: 2.0 - 3.0 Includes: PROPHYLAXIS forvenous thrombosis, systemic embolization; TREATMENT for venous thrombosis and/or pulmonary embolus.HIGH RISK: Target INR is 2.5-3.5 for patients with mechanical heart valves.
[2019-08-26 15:26] LABS: Absolute Lymphocytes (CBC) 1.4 K/uL (0.7-4.9); Basophils % 0.6 % (0-1.3); Hematocrit 20.2 % (39.6-49.0); Lymphocytes % 8.7 % (15.3-44.8); MPV 9.1 fL (7.6-11.3); RBC Red Blood Cell Count 2.27 M/uL (4.33-5.43)
[2019-08-26 15:53] LABS: ALT/SGPT 8 U/L (12-78); AST/SGOT 12 U/L (15-37); Albumin 1.5 g/dL (3.4-5.0); Alkaline Phosphatase 106 U/L (45-117); BUN Blood Urea Nitrogen 11 mg/dL (7-18); Bicarbonate 24 mmol/L (21-32); Bilirubin Direct < 0.1 mg/dL (0-0.2); Bilirubin Total 0.1 mg/dL (0.2-1.0); Glucose Level 208 mg/dL (74-106); Lipase 127 U/L (73-393); Potassium 3.9 mmol/L (3.5-5.1); Protein, Total 5.7 g/dL (6.4-8.2); Sodium Level 142 mmol/L (136-145)
--- NOTE | 2019-08-26 15:59 | RAD REPORT ---
EXAM DESCRIPTION: CTAbdomen Pelvis W Contrast - 08/26/2019 3:35 pm CLINICAL HISTORY: Abdominal pain. ABD PAIN COMPARISON: Abdomen Pelvis W Contrast dated 02/13/2019; Abdomen Pelvis W Contrast dated 07/26/2018; Abdomen Pelvis W Contrast dated 07/09/2018; Abdomen Pelvis W Contrast dated 05/30/2018 TECHNIQUE: Biphasic CT imaging of the abdomen and pelvis was performed with 100 ml non-ionic IV cont rast. All CT scans are performed using dose optimization technique as appropriate and may include automated exposure control or mA/KV adjustment according to patient size. FINDINGS: Small loculated left pleural effusion inferiorly. The liver demonstrates no focal mass or intrahepatic biliary dilatation. Common bile duct stent is in place traversing the pancreatitis head. Mild fluid is seen in the left upper quadrant along with a f ocal air collection extending into the splenic hilum. This is likely attributable to the presence of a drain in this region previously extending from the tail of the pancreas/left upper quadrant to the stomach. The drain has been removed since the comparative CT study. The spleen, adrenal glands and ki dneys show no acute process. No bowel obstruction, free air, free fluid or abscess. Moderate stool is present in the colon. The ap pendix is normal. No evidence of significant lymphadenopathy. No suspicious bony findings. IMPRESSION: Small loculated left pleural effusion. Common duct stent is in place. Post intervention changes are present in the left upper quadrant relat ed to a previously noted stent in this region. No drainable fluid collection is seen in the region.
[2019-08-26] MEDS ORDERED: Levofloxacin500mg IV 500 MG/100 ML BAG IV ONE (16:42)
[2019-08-26 16:52] LABS: Platelet Estimate INCR; White Blood Cell Scan OK
[2019-08-26 16:53] LABS: Blood Morphology Comment NOTED (NOT SEEN); Hypochromasia 1+
[2019-08-26] MEDS ORDERED: PANTOPRAZOLE 40 MG INJ ONE (18:23)
--- NOTE | 2019-08-26 18:29 | ER ---
Nurse's Notes [facility] Name: Jann Alvarez Age: 29 yrs Sex: Male : 1990 Arrival Date: 08/26/2019 Time: 14:21 Bed 5 Private MD: Diagnosis: Anemia, unspecified;GI bleed;Pneumonia, unspecified organism Presentation: 08/25 14:21 Chief complaint: EMS states: Family was getting pt into shower and pt had a syncopal jl7 episode, on EMS arrival pt was pale and clammy. Pt's Mom reports he's has to have a blood transfusion. BP [employer]ER 81/54 and HR 112. Coronavirus screen: Patient denies a cough. Patient denies shortness of breath or difficulty breathing. Patient denies measured and/or subjective temperature greater than 100.4F prior to today's visit. Patient denies travel on a cruise ship or to a country the [facility] currently lists as an affected area. Patient denies contact with known and/or suspected case of COVID-19. Proceed with normal triage. Ebola Screen: No symptoms or risks identified at this time. Initial Sepsis Screen: Does the patient meet any 2 criteria? Mean Arterial Pressure (MAP) < 65. HR > 90 bpm. Does the patient have a suspected source of infection? No. Patient's initial sepsis screen is negative. Risk Assessment: Do you want to hurt yourself or someone else? Patient reports no desire to harm self or others. Onset of symptoms was August 26, 2019. Care prior to arrival: None. Transition of care: patient was not received from another setting of care. 14:21 Method Of Arrival: EMS: [facility] 14:21 Acuity: KIMBER 2 jl Historical: - Allergies: 14:35 meropenem; jl 14:35 Vancomycin; jl 14:35 Zosyn; jl7 - Home Meds: 14:35 Dulcolax (bisacodyl) 5 mg Oral TbEC 1 tab [Active]; hydrocodone-acetaminophen 10-325 mg jl7 Oral tab 1 tab every 4 hours [Active]; nystatin 100,000 unit/gram Topical crea 2 times per day [Active]; polyethylene glycol 3350 17 gram Oral pwpk 1 packet once daily [Active]; - PMHx: 14:35 Autism; Autism- Nonverbal; Lupus; Pancreatitis; jl7 - Immunization history:: Adult Immunizations up to date. - Social history:: Smoking status: Patient denies any tobacco usage or history of. - Family history:: not pertinent. - Hospitalizations: : No recent hospitalization is reported. Screenin:20 Abuse screen: Denies threats or abuse. Denies injuries from another. Nutritional jr10 screening: No deficits noted. Tuberculosis screening: No symptoms or risk factors identified. Fall Risk Fall in past 12 months (25 points). Secondary diagnosis (15 points) impaired mobility, IV access (20 points). Ambulatory Aid- None/Bed Rest/Nurse Assist (0 pts). Gait- Weak (10 pts.). Mental Status- Oriented to own ability (0 pts). Assessment: 14:20 Neuro: Level of Consciousness is awake, alert. Cardiovascular: No deficits noted. jr10 Rhythm is regular Parent/caregiver reports patient has had lightheadedness, syncope, mother reports that she was helping her son in the shower "when he just went down and passed out". Respiratory: Airway is patent Respiratory effort is even, unlabored, Respiratory pattern is regular, symmetrical, Breath sounds are clear the patient has moderate shortness of breath Parent/caregiver reports the patient having mother reports that patient has not had a cough and has not complaint of any sob at home, no O2 use reported; upon arrival pt O2 sats noted to decrease to 70%, pt placed on O2 via NC without improvement in s/s, placed on NRB 15L with vast improvement noted in s/s. GI: No deficits noted. : No deficits noted. Derm: Skin is pale. Musculoskeletal: No deficits noted. 14:21 General: Appears in no apparent distress. Behavior is calm, flat. Pain: Complains of jr10 pain in pt c/o pain "everywhere". 19:41 General: Appears in no apparent distress. Behavior is calm, flat. Neuro: Level of ea Consciousness is awake, alert. Respiratory: Airway is patent Respiratory effort is even, unlabored, Respiratory pattern is regular, symmetrical. Derm: Skin is dry, Skin is pale, Skin temperature is warm. Vital Signs: 14:20 BP 84 / 60; Pulse 98; Resp 22; Pulse Ox 96% on Non-rebreather mask; jr10 14:21 BP 82 / 56; Pulse 110; Resp 19; Pulse Ox 87% ; jl7 14:37 BP 89 / 61; Pulse 98; Resp 23; Temp 97.0(TE); Pulse Ox 91% on 15% Non-rebreather mask; mh5 15:00 BP 85 / 57; Pulse 100; Resp 18; Pulse Ox 100% ; jr10 17:00 BP 91 / 50; Pulse 81; Resp 19; Pulse Ox 100% on Non-rebreather mask; jr10 17:40 BP 94 / 55; Pulse 85; Resp 21; Pulse Ox 100% ; jr10 18:20 BP 90 / 54; Pulse 92; Resp 18; Pulse Ox 100% on Non-rebreather mask; jr10 19:42 BP 93 / 56; Pulse 91; Resp 18; Pulse Ox 100% on 5 lpm NC; ea ED Course: 14:20 Oxygen administration via non-rebreather mask \\T\\ 15L/min Response to oxygen therapy: jr10 symptoms improved. 14:20 Patient has correct armband on for positive identification. Placed in gown. Bed in low jr10 position. Call light in reach. Side rails up X2. personnel monitor on. Pulse ox on. NIBP on. mother at bedside. 14:21 Patient arrived in ED. jl7 14:26 Goyo Ji MD is Attending Physician. rn 14:33 Shantelle Crum is Primary Nurse. jr10 14:34 Triage completed. jl7 14:43 Inserted saline lock: 20 gauge in right forearm, using aseptic technique. IV is patent, jr10 is intact, Flushed. 14:55 XRAY Chest (1 view) In Process Unspecified. EDMS 15:29 Notified ED physician of a critical lab result(s). Hemoglobin 6.4 and Hematocrit 20.2. aa5 15:35 CT Abd/Pelvis - IV Contrast Only In Process Unspecified. EDMS 16:42 attempted transfer to [facility]. bd 16:48 Shantelle Crum is Primary Nurse. jr10 16:57 pt denied due to lack of icu beds, per maggie. bd 17:30 Inserted saline lock: 20 gauge in left hand, using aseptic technique. IV Flushed. jr10 17:33 attempted transfer to [facility]. bd 17:48 attempted transfer to [facility]. bd 17:51 pt denied at [facility] due to no icu beds per Kenna. bd 17:54 attempted transfer to [facility]. bd 18:07 pt was denied at [facility] due to no beds at any of the [facility] campuses, per colby. bd 18:10 attempted transfer to [facility], pt was denied due to no beds at any of the [facility] hospitals,per Ankit. 18:17 attempted transfer to [place], pt denied due to no beds at this time. bd 18:28 Weston Belcher MD is Hospitalizing Provider. rn 18:33 Basic Metabolic Panel Sent. jr10 18:33 CBC with Diff Sent. jr10 18:33 Hepatic Function Sent. jr10 18:33 Lipase Sent. jr10 19:18 No provider procedures requiring assistance completed. Patient admitted, IV remains in ea place. 19:19 Arm band placed on Patient placed in an exam room, on a stretcher, on personnel monitor, ea on pulse oximetry. Administered Medications: 15:00 Drug: NS 0.9% 1000 ml Route: IV; Rate: 1000 ml; Site: right forearm; 10 17:13 Follow up: Response: No adverse reaction; IV Status: Completed infusion [facility] 16:46 Drug: NS 0.9% 1000 ml Route: IV; Rate: 1000 ml; Site: right hand; jr10 18:04 Follow up: Response: No adverse reaction; IV Status: Completed infusion jr10 17:13 Drug: LevaQUIN 500 mg Volume: 100 ml; Route: IVPB; Infused Over: 60 mins; Site: right jr10 forearm; 18:04 Follow up: Response: No adverse reaction; IV Status: Completed infusion 10 18:23 Drug: ProTONIX 40 mg Route: IVP; Site: right forearm; jr10 19:12 Follow up: Response: No adverse reaction [facility] 19:01 Drug: ProTONIX 8 mg/hr Route: IV; Rate: 25 ml/hr; Site: right forearm; 10 19:30 Follow up: Response: No adverse reaction; IV Status: Infusion continued upon admission ea 08/26 07:28 Drug: Calcium Gluconate 1 grams Route: IVPB; Infused Over: 60 mins; Site: left wrist; em 08:38 Follow up: Response: No adverse reaction; IV Status: Completed infusion; IV Intake: em 100ml Intake: 08:38 IV: 100ml; Total: 100ml. em Outcome: 08/25 18:29 Decision to Hospitalize by Provider. rn 19:19 Admitted to ER Hold. Please see [facility] for further documentation. ea 19:19 Condition: stable 19:19 Instructed on the need for admit, Demonstrated understanding of family instructed on pt need for admit 08/26 10:19 Patient left the ED. em Signatures: Dispatcher [employer] EDRosalinda Martinez Edgar, RN RN Goyo Simpson MD MD rn Calderon, Audri, RN RN Mellissa Obrien Jahala, RN RN jl7 Andressa Gomez, RN Shantelle Canas ea, RN RN jr10
--- NOTE | 2019-08-26 18:29 | EDPHYS ---
Physician Documentation [facility] Name: Jann Alvarez Age: 29 yrs Sex: Male : 1990 Arrival Date: 08/26/2019 Time: 14:21 Bed 5 Private MD: ED Physician Goyo Ji HPI: 08/25 15:41 This 29 yrs old Male presents to ER via EMS with complaints of Syncope. rn 15:41 The patient has experienced syncope. Onset: The symptoms/episode began/occurred just rn prior to arrival. Duration: This was a single episode. Associated signs and symptoms: Pertinent positives: abdominal pain, lightheadedness, Pertinent negatives: chest pain. Current symptoms:. The patient has experienced similar episodes in the past. Mother reports patient not acting right, seems weak, noticed blood in stool last night, today passed out upon standing. + hx of pancreatitis and lupus. No fever. . Historical: - Allergies: 14:35 meropenem; jl7 14:35 Vancomycin; jl7 14:35 Zosyn; jl7 - Home Meds: 14:35 Dulcolax (bisacodyl) 5 mg Oral TbEC 1 tab [Active]; hydrocodone-acetaminophen 10-325 mg jl7 Oral tab 1 tab every 4 hours [Active]; nystatin 100,000 unit/gram Topical crea 2 times per day [Active]; polyethylene glycol 3350 17 gram Oral pwpk 1 packet once daily [Active]; - PMHx: 14:35 Autism; Autism- Nonverbal; Lupus; Pancreatitis; jl7 - Immunization history:: Adult Immunizations up to date. - Social history:: Smoking status: Patient denies any tobacco usage or history of. - Family history:: not pertinent. - Hospitalizations: : No recent hospitalization is reported. ROS: 15:41 Constitutional: Negative for fever, chills, and weight loss, Eyes: Negative for injury, rn pain, redness, and discharge, Neck: Negative for injury, pain, and swelling, Cardiovascular: Negative for chest pain, palpitations, and edema, Respiratory: Negative for shortness of breath, cough, wheezing, and pleuritic chest pain, Abdomen/GI: Negative for constipation MS/Extremity: Negative for injury and deformity, Skin: Negative for injury, rash, and discoloration, Neuro: Negative for headache, numbness, tingling, and seizure. Exam: 15:41 Constitutional: This is a well developed, well nourished patient who is awake, alert, rn + mild tachypnea Head/Face: Normocephalic, atraumatic. Eyes: pale conjunctivae Cardiovascular: Tachycardic, regular Respiratory: + mild tachypnea Abdomen/GI: soft, no focal tenderness Skin: + pale, white MS/ Extremity: Pulses equal, no cyanosis. Neuro: Awake and alert, GCS 15 Vital Signs: 14:20 BP 84 / 60; Pulse 98; Resp 22; Pulse Ox 96% on Non-rebreather mask; jr10 14:21 BP 82 / 56; Pulse 110; Resp 19; Pulse Ox 87% ; jl7 14:37 BP 89 / 61; Pulse 98; Resp 23; Temp 97.0(TE); Pulse Ox 91% on 15% Non-rebreather mask; mh5 15:00 BP 85 / 57; Pulse 100; Resp 18; Pulse Ox 100% ; jr10 17:00 BP 91 / 50; Pulse 81; Resp 19; Pulse Ox 100% on Non-rebreather mask; jr10 17:40 BP 94 / 55; Pulse 85; Resp 21; Pulse Ox 100% ; jr10 18:20 BP 90 / 54; Pulse 92; Resp 18; Pulse Ox 100% on Non-rebreather mask; jr10 19:42 BP 93 / 56; Pulse 91; Resp 18; Pulse Ox 100% on 5 lpm NC; ea MDM: 14:27 Patient medically screened. rn 18:25 Differential Diagnosis: GI bleed, vasovagal episode. Data reviewed: vital signs, nurses rn notes, lab test result(s), radiologic studies. 18:26 Counseling: I had a detailed discussion with the patient and/or guardian regarding: the rn historical points, exam findings, and any diagnostic results supporting the discharge/admit diagnosis, lab results, radiology results, the need for further work-up and treatment in the hospital. Response to treatment: the patient's symptoms have mildly improved after treatment, and as a result, I will admit patient. Admission orders: after a detailed discussion of the patient's condition and case, the admit orders are written by me. ED course: Pt sees Dr. Churchill and Ramírez for GI, consulted with Dr. Churchill given no beds in area, tried [facility] and no beds. Dr. Churchill states Dr. Elmore can see patient in hospital tomorrow. Will admit here to ICU. Blood transfusion started. Improving vitals. . 18:41 ED course: Notified Arun Belcher of admission \T\ 1841. rn 08/25 14:34 Order name: Basic Metabolic Panel rn 08/25 14:34 Order name: CBC with Diff rn 08/25 14:34 Order name: Hepatic Function rn 08/25 14:34 Order name: Lipase rn 08/25 14:34 Order name: Blood Culture Adult (2) rn 08/25 14:34 Order name: Procalcitonin; Complete Time: 18:40 rn 08/25 14:34 Order name: Lactate; Complete Time: 16:32 rn 08/25 14:35 Order name: Basic Metabolic Panel; Complete Time: 16:05 EDHI 08/25 14:35 Order name: CBC with Automated Diff; Complete Time: 17:01 EDHI 08/25 14:35 Order name: Liver (Hepatic) Function; Complete Time: 16:05 EDHI 08/25 14:35 Order name: Lipase; Complete Time: 16:05 EDHI 08/25 15:34 Order name: Type And Screen 08/25 15:37 Order name: Bb Add On bd 08/25 15:40 Order name: Packed RBC Leukored EDHI 08/25 14:34 Order name: XRAY Chest (1 view); Complete Time: 15:31 08/25 16:53 Order name: CBC Smear Scan; Complete Time: 17:01 EDHI 08/25 17:58 Order name: CREATININE WHOLE BLOOD; Complete Time: 18:24 EDHI 08/25 18:40 Order name: COVID-19; Complete Time: 07:06 rn 08/25 18:53 Order name: Comprehensive Metabolic Panel EDHI 08/25 18:53 Order name: Comprehensive Metabolic Panel; Complete Time: 07:06 EDHI 08/25 18:53 Order name: Magnesium EDHI 08/25 18:53 Order name: Magnesium; Complete Time: 07:06 EDMS 08/25 18:57 Order name: Urinalysis EDHI 08/25 18:57 Order name: CBC with Automated Diff EDHI 08/25 18:57 Order name: CBC with Automated Diff; Complete Time: 07:06 EDMS 08/25 18:57 Order name: Phosphorus EDMS 08/25 18:57 Order name: Phosphorus; Complete Time: 07:06 EDHI 08/25 19:27 Order name: Lactate Sepsis 2 HR Follow-up; Complete Time: 07:06 EDMS 08/26 02:23 Order name: CBC w/o diff ea 08/26 03:17 Order name: CBC without Diff; Complete Time: 07:06 EDHI 08/25 14:34 Order name: IV Saline Lock; Complete Time: 14:42 rn 08/25 14:34 Order name: Labs collected and sent; Complete Time: 14:42 rn 08/25 14:34 Order name: CT Abd/Pelvis - IV Contrast Only; Complete Time: 16:05 rn 08/25 14:34 Order name: EKG; Complete Time: 14:35 rn 08/25 14:34 Order name: EKG - Nurse/Tech; Complete Time: 18:02 rn 08/25 14:34 Order name: Oxygen Per Protocol; Complete Time: 15:13 rn 08/25 18:57 Order name: CONS Physician Consult EDHI 08/25 18:57 Order name: Clear Liquid EDHI 08/25 18:57 Order name: NPO EDHI Administered Medications: 15:00 Drug: NS 0.9% 1000 ml Route: IV; Rate: 1000 ml; Site: right forearm; jr10 17:13 Follow up: Response: No adverse reaction; IV Status: Completed infusion jr10 16:46 Drug: NS 0.9% 1000 ml Route: IV; Rate: 1000 ml; Site: right hand; jr10 18:04 Follow up: Response: No adverse reaction; IV Status: Completed infusion jr10 17:13 Drug: LevaQUIN 500 mg Volume: 100 ml; Route: IVPB; Infused Over: 60 mins; Site: right jr10 forearm; 18:04 Follow up: Response: No adverse reaction; IV Status: Completed infusion jr10 18:23 Drug: ProTONIX 40 mg Route: IVP; Site: right forearm; jr10 19:12 Follow up: Response: No adverse reaction jr10 19:01 Drug: ProTONIX 8 mg/hr Route: IV; Rate: 25 ml/hr; Site: right forearm; jr10 19:30 Follow up: Response: No adverse reaction; IV Status: Infusion continued upon admission camilo 08/26 07:28 Drug: Calcium Gluconate 1 grams Route: IVPB; Infused Over: 60 mins; Site: left wrist; em 08:38 Follow up: Response: No adverse reaction; IV Status: Completed infusion; IV Intake: em 100ml Disposition: 08/26/19 18:29 Hospitalization ordered by Weston Belcher for Inpatient Admission. Preliminary diagnosis are Anemia, unspecified, GI bleed, Pneumonia, unspecified organism. - Bed requested for [facility] HOLD. - Status is Inpatient Admission. em - Condition is Fair. - Problem is new. - Symptoms have improved. Critical care time excluding procedures: 08/25 18:26 Critical care time: Bedside Care: 25 minutes, Consultation: 5 minutes. Total time: 30 rn minutes Signatures: Dispatcher [employer] Sirena Tian, RN RN Willie Mcnair RN RN Goyo Simpson MD MD rn Leal, Jahala, RN RN jl7 Shantelle Crum, RN RN jr10 Andressa Gomez RN ea Corrections: (The following items were deleted from the chart) 19:11 18:29 Hospitalization Ordered by Weston Belcher MD for Inpatient Admission. Preliminary dw diagnosis is Anemia, unspecified; GI bleed; Pneumonia, unspecified organism. Bed requested for Intensive Care Unit. Status is Inpatient Admission. Condition is Fair. Problem is new. Symptoms have improved. sherif 08/26 10:19 08/25 19:11 08/26/2019 18:29 Hospitalization Ordered by Weston Belcher MD for Inpatient em Admission. Preliminary diagnosis is Anemia, unspecified; GI bleed; Pneumonia, unspecified organism. Bed requested for [facility] HOLD. Status is Inpatient Admission. Condition is Fair. Problem is new. Symptoms have improved. dw
[2019-08-26] MEDS ORDERED: ONDANSETRON 4 MG/2 ML VIAL IV PRN (18:50)
--- NOTE | 2019-08-26 18:50 | P.HP ---
Certification for Inpatient Patient admitted to: Inpatient With expected LOS: >2 Midnights Practitioner: I am a practitioner with admitting privileges, knowledge of patient current condition, hospital course, and medical plan of care. Services: Services provided to patient in accordance with Admission requirements found in Title 42 Section 412.3 of the Code of Federal Regulations Patient History Date of Service: 08/27/19 Reason for admission: GI Bleed History of Present Illness: 29-year-old male with a past medical history of autism, lupus, history of pancreatitis admitted with complaints of Syncope.The patient has experienced syncope happened just prior to arrival. Associated with abdominal pain, lightheadedness, denies any nausea or vomiting . The patient has experienced similar episodes in the past and had to undergo blood transfusions. Mother reports patient not acting right, seems weak, noticed blood in stool last night, patient is nonverbal hence most of the history is obtained from the mother who is at the bedside. Patient was seen by and Dr. Churchill before . Allergies meropenem Allergy (Verified 08/26/19 19:56) Hives/Rash vancomycin Allergy (Verified 08/26/19 19:56) Hives/Rash piperacillin [From Zosyn] Adverse Reaction (Verified 08/26/19 19:56) Hives/Rash tazobactam [From Zosyn] Adverse Reaction (Verified 08/26/19 19:56) Hives/Rash - Past Medical/Surgical History -: Autism -: Anemia -: H/o Pancreatitis Past Surgical History: Reviewed- Non-Contributory - Family History Family History: Reviewed- Non-Contributory - Social History Smoking Status: Never smoker Review of Systems is unable to be obtained Physical Examination - Vital Signs Temperature: 98.1 F Blood Pressure: 94/55 Pulse: 98 Respirations: 18 - Physical Exam General: Alert, In no apparent distress HEENT: Atraumatic, Normocephalic Neck: Supple, 2+ carotid pulse no bruit Respiratory: Clear to auscultation bilaterally, Normal air movement Cardiovascular: Normal pulses, Regular rate/rhythm Capillary refill: <2 Seconds Gastrointestinal: Soft and benign, W/out hepatosplenomegaly Musculoskeletal: No clubbing, No swelling Integumentary: No rashes Neurological: Other (Alert , Awake ) Urinary: Other - Studies Laboratory Data (last 24 hrs) 08/26/19 14:55: WBC 16.6 H, Hgb 6.4 L*, Hct 20.2 L*, Plt Count 829 H 08/26/19 14:55: Sodium 142, Potassium 3.9, BUN 11, Creatinine 0.77, Glucose 208 H, Total Bilirubin 0.1 L, AST 12 L, ALT 8 L, Alkaline Phosphatase 106, Lipase 127 Assessment and Plan - Problems (Diagnosis) (1) Anemia Current Visit: Yes Status: Acute - Advance Directives Does patient have a Living Will: No Does patient have a Durable POA for Healthcare: No Physician Review Additional Text: Syncope Acute blood-loss anemia Melena Possible pneumonia Enteritis Plan Syncope possibly due to anemia will transfuse PRBCs Monitor any gross bleeding Will get a CT of the abdomen pelvis Will also get a chest x-ray GI consult Monitor closely GI/DVT prophylaxis Time Spent Managing Pts Care (In Minutes): 42
[2019-08-26] MEDS: NA CHLORIDE 0.9% 1,000 ML IV SCH (19:00)
[2019-08-26] MEDS: PANTOPRAZOLE INJ 80 MG in NA CHLORIDE 0.9% 250 ML IV SCH (19:00)
[2019-08-26] MEDS ORDERED: NA CHLORIDE 0.9% 500 ML ONE (19:35)
[2019-08-26] MEDS: ACETAMINOPHEN 500 MG TAB PO PRN (23:35)
[2019-08-26] MEDS ORDERED: ACETAMINOPHEN 500 MG TAB ONE (23:41)
[2019-08-27 03:04] LABS: MPV 8.8 fL (7.6-11.3); RBC Red Blood Cell Count 2.16 M/uL (4.33-5.43)
[2019-08-27 03:16] LABS: Hematocrit 18.9 % (39.6-49.0)
[2019-08-27] MEDS: PANTOPRAZOLE INJ 80 MG in NA CHLORIDE 0.9% 250 ML IV SCH (05:00)
[2019-08-27 05:49] LABS: Absolute Lymphocytes (CBC) 1.3 K/uL (0.7-4.9); Basophils % 0.5 % (0-1.3); Hematocrit 18.4 % (39.6-49.0); Lymphocytes % 19.9 % (15.3-44.8); MPV 8.6 fL (7.6-11.3); RBC Red Blood Cell Count 2.12 M/uL (4.33-5.43)
[2019-08-27 06:06] LABS: ALT/SGPT 7 U/L (12-78); AST/SGOT 10 U/L (15-37); Albumin 1.2 g/dL (3.4-5.0); Alkaline Phosphatase 73 U/L (45-117); BUN Blood Urea Nitrogen 12 mg/dL (7-18); Bicarbonate 26 mmol/L (21-32); Bilirubin Total 0.2 mg/dL (0.2-1.0); Glucose Level 85 mg/dL (74-106); Phosphorus 2.9 mg/dL (2.5-4.9); Potassium 4.1 mmol/L (3.5-5.1); Protein, Total 4.3 g/dL (6.4-8.2); Sodium Level 147 mmol/L (136-145)
[2019-08-27] MEDS ORDERED: CALCIUM GLUCONATE 1 GM IVPB 1 GM/50 ML BAG IV ONE (07:23)
[2019-08-27] MEDS ORDERED: NA CHLORIDE 0.9% 250 ML ONE (08:59)
--- NOTE | 2019-08-27 10:43 | P.PN ---
Subjective Date of Service: 08/27/19 Chief Complaint: GI Bleed Subjective: No new changes Review of Systems Unremarkable Physical Examination - Vital Signs Temperature: 98.6 F Blood Pressure: 88/57 Pulse: 75 Respirations: 18 Pulse Ox (%): 100 - Physical Exam General: Alert, In no apparent distress HEENT: Atraumatic, Normocephalic Neck: Supple Respiratory: Clear to auscultation bilaterally, Normal air movement Cardiovascular: Regular rate/rhythm, Normal S1 S2 Capillary refill: <2 Seconds Gastrointestinal: Soft and benign, W/out hepatosplenomegaly Musculoskeletal: No swelling Integumentary: No rashes, No tenderness/swelling Neurological: Other (Alert, Awake ) Lymphatics: No axilla or inguinal lymphadenopathy Urinary: Other (no bladder distention) - Studies Laboratory Data (last 24 hrs) 08/26/19 14:55: WBC 16.6 H, Hgb 6.4 L*, Hct 20.2 L*, Plt Count 829 H 08/26/19 14:55: Sodium 142, Potassium 3.9, BUN 11, Creatinine 0.77, Glucose 208 H, Total Bilirubin 0.1 L, AST 12 L, ALT 8 L, Alkaline Phosphatase 106, Lipase 127 Microbiology Data (last 24 hrs): 08/26/19 18:40 Nasopharnyx Coronavirus COVID-19 PCR - Final Assessment & Plan - Problems (Diagnosis) (1) Anemia Current Visit: Yes Status: Acute Physician Review Additional Text: Syncope Acute blood-loss anemia Melena Possible pneumonia Enteritis Plan Syncope possibly due to anemia will transfuse PRBCs Monitor any gross bleeding Will get a CT of the abdomen pelvis Will also get a chest x-ray GI consult Monitor closely GI/DVT prophylaxis 08/27/2019 Hemoglobin still 6.2 Will transfuse 2 units PRBC Monitor H&H Transfuse p.r.n. Monitor closely for GI bleeding on PPI Start on clear liquid diet and advance as tolerated Will discuss with GI Start on empirical antibiotic Bronchodilators Continue home medications and titrate as needed IV fluids Time Spent Managing Pts Care (In Minutes): 40
[2019-08-27] MEDS: NA CHLORIDE 0.9% 1,000 ML IV SCH ×3 (11:13→16:50)
[2019-08-27] MEDS ORDERED: NA CHLORIDE 0.9% 1,000 ML ONE ×3 (11:21→23:28)
--- NOTE | 2019-08-27 12:34 | EKG ---
Test Date: 2019-08-26 Test Time: 17:45:11 Rail Signal Mechanic: RAFAEL MEASUREMENT RESULTS: Intervals: Rate: 88 NV: 132 QRSD: 74 QT: 364 QTc: 440 [place]: P: 31 NV: 132 QRS: 25 T: 37 INTERPRETIVE STATEMENTS: Normal sinus rhythm Normal ECG Compared to ECG 08/27/2018 10:40:37 Sinus tachycardia no longer present T-wave abnormality no longer present Electronically Signed On 08-27-19 12:31:29 CDT by Charly Faustin
[2019-08-27] MEDS ORDERED: AZTREONAM 1 GM/VIAL IV SCH (14:00)
[2019-08-27 14:05] LABS: Hematocrit 24.5 % (39.6-49.0)
[2019-08-27] MEDS ORDERED: IPRATROPIUM BROM 0.5MG/2.5ML NEB PRN ×2 (14:24→15:00)
[2019-08-27] MEDS ORDERED: ALBUTEROL 2.5 MG/3 ML NEB SOL NEB PRN ×2 (14:24→15:00)
[2019-08-27] MEDS ORDERED: IPRATROPIUM BROM 0.5MG/2.5ML ONE (14:25)
[2019-08-27] MEDS ORDERED: ALBUTEROL 2.5 MG/3 ML NEB SOL ONE (14:26)
[2019-08-27] MEDS ORDERED: Levofloxacin500mg IV 500 MG/100 ML BAG IV ONE (14:40)
[2019-08-27] MEDS ORDERED: PANTOPRAZOLE INJ 80 MG in NA CHLORIDE 0.9% 250 ML IV SCH (15:00)
[2019-08-27] MEDS: ACETAMINOPHEN 500 MG TAB PO PRN (15:17)
[2019-08-27] MEDS ORDERED: ACETAMINOPHEN 500 MG TAB ONE (15:25)
[2019-08-27] MEDS ORDERED: IPRATROPIUM BROM 0.5MG/2.5ML NEB SCH (16:00)
[2019-08-27] MEDS ORDERED: ALBUTEROL 2.5 MG/3 ML NEB SOL NEB SCH (16:00)
[2019-08-27] MEDS ORDERED: METRONIDAZOLE 500mg IVPB 500 MG/100 ML BAG IV SCH (17:00)
[2019-08-27] MEDS ORDERED: METRONIDAZOLE 500mg IVPB 500 MG/100 ML BAG IV ONE (17:00)
[2019-08-27] MEDS ORDERED: ONDANSETRON 4 MG/2 ML VIAL ONE ×2 (17:58→22:28)
[2019-08-27 18:55] LABS: Hematocrit 21.1 % (39.6-49.0)
[2019-08-27] MEDS ORDERED: FENTANYL CITR 100 MCG/2 ML IV PRN (21:43)
[2019-08-27] MEDS ORDERED: ONDANSETRON 4 MG/2 ML VIAL IV ONE (21:46)
[2019-08-27] MEDS ORDERED: FENTANYL CITR 100 MCG/2 ML ONE (22:28)
[2019-08-27 22:36] VITALS: O2SAT 99
[2019-08-27 23:24] VITALS: BP 100/65; TEMP 100
--- NOTE | 2019-08-28 08:13 | P.DS ---
Admission Date: 08/26/19 Discharge Date: 08/28/19 Disposition: TRANSFER TO [facility] Reason for Admission: GI Bleed - Problems (1) Anemia Status: Acute Brief History of Present Illness: 29-year-old male with a past medical history of autism, lupus, history of pancreatitis admitted with complaints of Syncope.The patient has experienced syncope happened just prior to arrival. Associated with abdominal pain, lightheadedness, denies any nausea or vomiting . The patient has experienced similar episodes in the past and had to undergo blood transfusions. Mother reports patient not acting right, seems weak, noticed blood in stool last night, patient is nonverbal hence most of the history is obtained from the mother who is at the bedside. Patient was seen by and Dr. Churchill before . Hospital Course: Syncope Acute blood-loss anemia Melena Possible pneumonia Enteritis Plan Syncope possibly due to anemia will transfuse PRBCs Monitor any gross bleeding Will get a CT of the abdomen pelvis Will also get a chest x-ray GI consult Monitor closely GI/DVT prophylaxis 08/27/2019 Hemoglobin still 6.2 Will transfuse 2 units PRBC Monitor H&H Transfuse p.r.n. Monitor closely for GI bleeding on PPI Start on clear liquid diet and advance as tolerated Will discuss with GI Start on empirical antibiotic Bronchodilators Continue home medications and titrate as needed IV fluids He continues to have GI bleeding with bright red blood per rectum transfuse 1 more unit of blood As there is no GI coverage avilable , will transfer to [facility] for further GI workup and management Vital Signs/Physical Exam: Temp Pulse Resp BP Pulse Ox 100.0 F 98 H 20 100/65 99 08/27/19 23:00 08/27/19 23:00 08/27/19 23:00 08/27/19 23:00 08/27/19 23:00 General: Alert, In no apparent distress HEENT: Atraumatic, Normocephalic Neck: Supple Respiratory: Clear to auscultation bilaterally, Normal air movement Cardiovascular: Regular rate/rhythm Capillary refill: <2 Seconds Gastrointestinal: Soft and benign Neurological: Other (Alert , Awake ) Laboratory Data at Discharge: WBC 6.4 K/uL (4.3-10.9) 08/27/19 05:16 Hgb 7.1 g/dL (13.6-17.9) L* 08/27/19 18:30 Hct 21.1 % (39.6-49.0) L 08/27/19 18:30 Plt Count 381 K/uL (152-406) 08/27/19 05:16 PT Cancelled 08/28/19 05:00 INR Cancelled 08/28/19 05:00 Sodium 147 mmol/L (136-145) H 08/27/19 05:16 Potassium 4.1 mmol/L (3.5-5.1) 08/27/19 05:16 BUN 12 mg/dL (7-18) 08/27/19 05:16 Creatinine 0.49 mg/dL (0.55-1.3) L 08/27/19 05:16 Glucose 85 mg/dL (74-106) 08/27/19 05:16 Phosphorus 2.9 mg/dL (2.5-4.9) 08/27/19 05:16 Magnesium 2.0 mg/dL (1.8-2.4) 08/27/19 05:16 Total Bilirubin 0.2 mg/dL (0.2-1.0) 08/27/19 05:16 AST 10 U/L (15-37) L 08/27/19 05:16 ALT 7 U/L (12-78) L 08/27/19 05:16 Alkaline Phosphatase 73 U/L (45-117) 08/27/19 05:16 Lipase 127 U/L (73-393) 08/26/19 14:55 Time spent managing pt's care (in minutes): 42
[2019-08-28] MEDS ORDERED: Levofloxacin500mg IV 500 MG/100 ML BAG IV SCH (09:00)
[2019-08-28] MEDS ORDERED: AZITHROMYCIN IV 500 MG in NA CHLORIDE 0.9% 250 ML IVPB SCH (09:00)
== END 2019-08-27 23:39 | disposition short-term general hospital (02) | DRG 811 ==
LOC: ER 14:15 → ERHOLD 18:51
PROVIDERS: ADMIT Family Medicine; ATTEND Family Medicine
PROC: 30233N1 Transfusion of Nonautologous Red Blood Cells into Peripheral Vein, Percutaneous Approach (ICD-10-PCS; principal; 2019-08-26)
DX: D62 Acute posthemorrhagic anemia (principal); J18.9 Pneumonia, unspecified organism; K92.1 Melena; K52.9 Noninfective gastroenteritis and colitis, unspecified; W18.30XA Fall on same level, unspecified, initial encounter; Z11.59 Encounter for screening for other viral diseases; Z79.891 Long term (current) use of opiate analgesic; Z79.899 Other long term (current) drug therapy; Z88.8 Allergy status to other drugs, medicaments and biological substances; Z88.1 Allergy status to other antibiotic agents
CPT/HCPCS: 36415; 36430; 71045; 74177; 80048; 80053; 80076; 82565; 83605; 83690; 83735; 84100; 84145; 85014; 85018; 85025; 85027; 86850; 86900; 86901; 87040; 93005; 94640; 96361; 96365; 96367; 96375; 99285; C9113; J0610; J2405; J3010; J7030; J7040; J7050; P9016; Q9967; U0002

== ENCOUNTER 2019-10-13 13:55 | Emergency (ER) | payer OTHER ==
--- OUTSIDE RECORDS SUMMARY | 2019-10-13 13:57 | XMS REPORT | Clinical Summary ---
:1990 Author Organization [facility] Address [address] [place] [address] Care Team Providers Name Role Phone Zac Coughlin Primary Care Provider [facility] Unavailable Allergies Active Allergy Reactions Severity [...] doses. Max Daily Amount: 3 tablets ondansetron (ZOFRAN) Take 4 mg by 1 [...] Encounters Date Type Specialty Care Team Description 08/27/2019 Telephone Gastroenterology Trinidad Cuellar MD 08/26/2019 Lab Requisition Lab 02/15/2019 Anesthesia Event Gastroenterology Elver Avendaño MD 02/15/2019 Surgery Gastroenterology Uriah Childs ERCP 02/14/2019 - Hospital Encounter Cardiology Jaimieham, Obstructi ve jaundice; 02/18/2019 MD Linda Peripancreatic fluid collection; Gadicherla, History of panc reatitis; Katina Leukocytosis, u nspecified type; MD Wing Acute blood loss anemia Jacob Pinon Amer, MD 02/14/2019 Travel after 10/12/2018 Social History Tobacco Use Types Packs/Day Years Used Date Never Smoker Smokeless Tobacco: Never Used Sex Assigned at Date Recorded Not on file Job Start Date Occupation Industry Not on file Not on file Not on file Travel History Travel Start Travel End No recent travel history available. Last Filed Vital Signs Vital Sign Reading Time Taken Blood Pressure 98/63 02/18/2019 12:03 PM AMALGAMATOR Pulse 78 02/18/2019 12:03 PM AMALGAMATOR Temperature 36 C (96.8 F) 02/18/2019 12:03 PM AMALGAMATOR Respiratory Rate 18 02/18/2019 2:11 PM AMALGAMATOR Oxygen Saturation 97% 02/18/2019 2:11 PM AMALGAMATOR Inhaled Oxygen Concentration 21% 02/17/2019 4:03 PM AMALGAMATOR Weight 70.9 kg (156 lb 3.2 oz) 02/15/2019 7:00 AM AMALGAMATOR Height 177.8 cm (5' 10") 02/14/2019 7:00 AM AMALGAMATOR Body Mass Index 22.41 02/15/2019 7:00 AM AMALGAMATOR Plan of Treatment Not on file Implants Implanted Type Area Adjunct History Instructor Device Shelf Model / Identifier Expiration Date Ser ial / Lot Stent Bili Duodenal [id number] - [id number] IMPLANTS [employer]KAYLA [employer]ON [employer] [id number] / Implanted: Qty: 1 on 02/15/2019 by Uriah Childs / Procedures Procedure Name Priority Date/Time Associated Comments Diagnosis SARS-COV2/RT-PCR ([facility] Routine 08/26/2019 7:33 R esults for this & REF LABS) PM CDT procedure are i n the results section. RHYTHM STRIP - SCAN 02/26/2019 4:18 PM AMALGAMATOR TRANSFUSION SERVICE 02/19/2019 6:00 REPORT - SCAN PM AMALGAMATOR RHYTHM STRIP - SCAN 02/19/2019 11:21 AM AMALGAMATOR PREPARE LEUKO-REDUCED Routine 02/18/2019 11:54 Re sults for this RBC PM AMALGAMATOR procedure are i n the results section. TRANSFUSION SERVICE 02/18/2019 6:00 REPORT - SCAN PM AMALGAMATOR FERRITIN Routine 02/18/2019 1:36 Results for this PM AMALGAMATOR procedure are i n the results section. COMPREHENSIVE STAT 02/18/2019 1:36 Results fo r this METABOLIC PANEL PM AMALGAMATOR procedure ar e in the results section. HEMOGLOBIN AND Routine 02/18/2019 12:16 Results f or this HEMATOCRIT PM AMALGAMATOR procedure are i n the results section. TRANSFUSE Routine 02/17/2019 2:53 LEUKO-REDUCED RED PM AMALGAMATOR BLOOD CELLS TYPE AND SCREEN, Routine 02/17/2019 9:56 Results for this AUTOMATED AM AMALGAMATOR procedure are i n the results section. HEMOGLOBIN AND STAT 02/17/2019 6:19 Results f or this HEMATOCRIT AM AMALGAMATOR procedure are i n the results section. LIPASE Routine 02/17/2019 4:18 Results for this AM AMALGAMATOR procedure are i n the results section. IRON, TIBC, % SAT. Routine 02/17/2019 4:18 Resul ts for this (WITHOUT FERRITIN) AM AMALGAMATOR procedure are in the results section. TSH/FREE T4 IF Routine 02/17/2019 4:18 Results f or this INDICATED AM AMALGAMATOR procedure are i n the results section. VITAMIN B12 AND FOLATE Routine 02/17/2019 4:18 R esults for this AM AMALGAMATOR procedure are i n the results section. BASIC METABOLIC PANEL Routine 02/17/2019 4:18 Re sults for this (7) AM AMALGAMATOR procedure are i n the results section. CBC (HEMOGRAM ONLY) Routine 02/17/2019 4:18 Resu lts for this AM AMALGAMATOR procedure are i n the results section. HEMOGLOBIN AND Routine 02/16/2019 10:19 Results f or this HEMATOCRIT AM AMALGAMATOR procedure are i n the results section. LIPASE Add-On 02/16/2019 4:23 Results for this AM AMALGAMATOR procedure are i n the results section. COMPREHENSIVE Routine 02/16/2019 4:23 Results fo r this METABOLIC PANEL AM AMALGAMATOR procedure ar e in the results section. CBC (HEMOGRAM ONLY) Routine 02/16/2019 4:23 Resu lts for this AM AMALGAMATOR procedure are i n the results section. PROTHROMBIN TIME/INR Routine 02/16/2019 4:23 Res ults for this AM AMALGAMATOR procedure are i n the results section. PT/APTT Routine 02/16/2019 4:23 Results for this AM AMALGAMATOR procedure are i n the results section. HEPATIC FUNCTION PANEL Routine 02/16/2019 4:23 R esults for this AM AMALGAMATOR procedure are i n the results section. REPORT OF PROCEDURE - 02/15/2019 12:51 ENDOSCOPY URL PM AMALGAMATOR FL ERCP Routine 02/15/2019 12:32 Results for this PM AMALGAMATOR procedure are i n the results section. CYTOLOGY REQUEST Routine 02/15/2019 12:26 Results for this PM AMALGAMATOR procedure are i n the results section. CYTOLOGY AP Routine 02/15/2019 12:26 Results for this PM AMALGAMATOR procedure are i n the results section. CBC W/PLT COUNT & AUTO STAT 02/15/2019 11:55 R esults for this DIFFERENTIAL AM AMALGAMATOR procedure are i n the results section. CBC W/PLT COUNT & AUTO STAT 02/15/2019 11:55 R esults for this DIFFERENTIAL AM AMALGAMATOR procedure are i n the results section. ERCP,BILIARY STENT 02/15/2019 11:00 Jaundice AM AMALGAMATOR ERCP,BALLOON SWEEPING 02/15/2019 11:00 Jaundice AM AMALGAMATOR ERCP 02/15/2019 11:00 Jaundice AM AMALGAMATOR PROTHROMBIN TIME/INR Routine 02/15/2019 6:00 Res ults for this AM AMALGAMATOR procedure are i n the results section. PT/APTT Routine 02/15/2019 6:00 Results for this AM AMALGAMATOR procedure are i n the results section. BASIC METABOLIC PANEL Routine 02/15/2019 6:00 Re sults for this (7) AM AMALGAMATOR procedure are i n the results section. HEPATIC FUNCTION PANEL Routine 02/15/2019 6:00 R esults for this AM AMALGAMATOR procedure are i n the results section. (CELLAVISION MANUAL Routine 02/14/2019 6:24 Resu lts for this DIFF) AM AMALGAMATOR procedure are i n the results section. CBC W/PLT COUNT & AUTO Routine 02/14/2019 6:24 R esults for this DIFFERENTIAL AM AMALGAMATOR procedure are i n the results section. CBC W/PLT COUNT & AUTO Routine 02/14/2019 6:24 R esults for this DIFFERENTIAL AM AMALGAMATOR procedure are i n the results section. PROTHROMBIN TIME/INR Routine 02/14/2019 4:34 Res ults for this AM AMALGAMATOR procedure are i n the results section. PT/APTT Routine 02/14/2019 4:34 Results for this AM AMALGAMATOR procedure are i n the results section. BASIC METABOLIC PANEL Routine 02/14/2019 4:34 Re sults for this (7) AM AMALGAMATOR procedure are i n the results section. HEPATIC FUNCTION PANEL Routine 02/14/2019 4:34 R esults for this AM AMALGAMATOR procedure are i n the results section. after 10/12/2018 Results SARS-CoV2/RT-PCR ([facility] & Ref Labs) (08/26/2019 7:33 PM CDT) SARS-COV2/RT-PCR Not Detected Not Detected, Negative, [facility] See external report for MEDICAL CENTER linked test SARS-COV-2 PERFORMING LAB BSC [facility] Specimen Other Narrative Performed At Negative results do not preclude SARS-CoV-2 [facility] infection and should not be used as the sole basis for patient management decisions. Negative results must be combined with clinical observations, patient history, and epidemiological information. A false negative result may occur if a specimen is improperly collected, transported or handled. The limit of detection for this assay is 250 copies/mL. This SARS CoV-2 test is a rapid, real-time RT-PCR test intended for the qualitative detection of nucleic acid from SARS-CoV-2 in a nasopharyngeal swab specimen collected from individuals suspected of COVID-19 by their healthcare provider. This test has not been Food and Drug Administration (FDA) cleared or approved and has been authorized by FDA under an Emergency Use Authorization (EUA). This EUA will be effective until the declaration that circumstances exist justifying the authorization of the emergency use of in vitro diagnostic tests for detection and/or diagnosis of COVID-19 is terminated under Section 564(b)(2) of the Act or the EUA is revoked under Section 564(g) of the Act. Fact Sheet for Healthcare Providers: https://www.[employer]/Documents/Xpert%20Xpre ss%20SARS%20CoV-2/Fact%20Sheets/3023802%20SAR S-COV-2%20HEALTHCARE%20PROVIDERS%20FACT%20SHEE T.pdf Fact Sheet for Healthcare Patients: https://www.[employer]/Documents/Xpert%20Xpre ss%20SARS%20CoV-2/Fact%20Sheets/3023801%20SAR S-COV-2%20PATIENT%20FACT%20SHEET.pdf Performing Laboratory: [facility] [address] [place] [address] Performing Organization Address City/State/Zipcode Phone Number [facility] [address] CENTER RHYTHM STRIP - SCAN (02/26/2019 4:18 PM AMALGAMATOR)Only the most recent of2 results within the time period is included. Narrative Performed At This result has an attachment that is no t available. TRANSFUSION SERVICE REPORT - SCAN (02/19/2019 6:00 PM AMALGAMATOR)Only the most recent of2 resultswithin the time period is included. Narrative Performed At This result has an attachment that is no t available. Prepare Leuko-Red RBC (02/18/2019 11:54 PM AMALGAMATOR) CROSSMATCH COMPATIBLE SAFETRACE TX Unit ABO A Pos SAFETRACE TX UNIT NUMBER [id number] [place] TX Status TX_TIMEINCHART SAFETRACE TX Blood Bank Product RED BLOOD CELLS SAFETRACE [place] PRODUCT CODE [id number] [place] Specimen Other Performing Organization Address City/[facility]/Zipcode Phone Number [place] Ferritin (02/18/2019 1:36 PM AMALGAMATOR) Ferritin 187 5 - 275 ng/mL [facility] Specimen Blood Narrative Performed At Embroidery Machine Operator ID - LA [facility] MED [facility]AL CENTER Performing Organization Address City/[facility]/Zipcode Phone Number [address] [address] [place] Comprehensive metabolic panel (02/18/2019 1:36 PM AMALGAMATOR)Only the most recent of2 resultswithin the time period is included. Protein, Total 5.4 (L) 6.0 - 8.3 gm/dL [facility] ER Albumin 1.9 (L) 3.5 - 5.0 g/dL [facility] ER Alkaline Phosphatase 1,089 (H) 40 - 150 U/L [facility] MED[facility] ER Total Bilirubin 2.7 (H) 0.2 - 1.2 mg/dL [facility] ER Sodium 136 136 - 145 meq/L [facility] ER Potassium 3.8 3.5 - 5.1 meq/L [facility] Chloride 105 98 - 107 meq/L [facility] CO2 28 22 - 29 meq/L [facility] ER BUN 3 (L) 7 - 21 mg/dL [facility] ER Creatinine 0.50 (L) 0.57 - 1.25 mg/dL [facility] ER Glucose 90 70 - 105 mg/dL [facility] Calcium 7.5 (L) 8.4 - 10.2 mg/dL [facility] AST 58 (H) 5 - 34 U/L [facility] ER ALT 30 6 - 55 U/L [facility] ER EGFR 195Comment: ESTIMATED mL/min/1.73 sq m [facility] GFR IS NOT ACCURATE [facility] CREATININE CLEARANCE IN PREDICTING GLOMERULAR FILTRATION RATE. ESTIMATED GFR IS NOT APPLICABLE FOR DIALYSIS PATIENTS. Specimen Blood Narrative Performed At Embroidery Machine Operator ID - KIRA C [facility] Specimen slightly icteric Performing Organization Address City/State/Zipcode Phone Number [facility] [address] [place] [address] CENTER Hemoglobin and hematocrit (02/18/2019 12:16 PM AMALGAMATOR)Only the most recent of3 resultswithin the time period is included. Hemoglobin 9.0 (L) 13.7 - 17.5 GM/DL [facility] Hematocrit 29.6 (L) 40.1 - 51.0 % [facility] Specimen Blood Narrative Performed At Embroidery Machine Operator ID - [id number] [facility] Performing Organization Address City/[facility]/Zipcode Phone Number [facility] [address] [place] [address] CENTER Transfuse Leuko-Red RBC (02/17/2019 2:53 PM AMALGAMATOR)Only the most recent of2 resultswithin the time period is included.Type and screen, automated (02/17/2019 9:56 AM AMALGAMATOR) ABO/RH AUTOMATED (BEAKER) A POSITIVE [facility] Ab Scrn NEGATIVE [facility] Specimen Blood Performing Organization Address [facility] Phone Number [address] [address] Vitamin B12 and Folate (02/17/2019 4:18 AM AMALGAMATOR) Vitamin B12 665 213 - 816 pg/mL [facility] Folate 12.3 >=7.0 ng/mL [facility] Specimen Blood Narrative Performed At Embroidery Machine Operator ID - [facility] Performing Organization Address [facility] Phone Number [address] [address] CENTER TSH/Free T4 If Indicated (02/17/2019 4:18 AM AMALGAMATOR) TSH 2.31 0.35 - 4.94 uIU/mL [facility] Specimen Blood Narrative Performed At Embroidery Machine Operator ID - SOTERO M [facility] Performing Organization Address [facility] Phone Number [address] [address] CENTER Iron, TIBC, % sat. (without ferritin) (02/17/2019 4:18 AM AMALGAMATOR) Iron 15.0 (L) 40.0 - 160.0 ug/dL [facility] TIBC 124 (L) 250 - 450 ug/dL [facility] Iron % Saturation 12 (L) 20 - 55 % [facility] Specimen Blood Narrative Performed At Embroidery Machine Operator ID - [facility] Performing Organization Address [facility] Phone Number [facility] [address] [place] [address] [place] CBC (Hemogram only) (02/17/2019 4:18 AM AMALGAMATOR)Only the most recent of2 results within the time period is included. WBC 5.9 3.5 - 10.5 K/L [facility] RBC 2.20 (L) 4.63 - 6.08 M/L [facility] Hemoglobin 6.7 (L) 13.7 - 17.5 GM/DL [facility] Hematocrit 21.8 (L) 40.1 - 51.0 % [facility] MCV 99.1 (H) 79.0 - 92.2 fL [facility] MCH 30.5 25.7 - 32.2 pg [facility] MCHC 30.7 (L) 32.3 - 36.5 GM/DL [facility] RDW 22.2 (H) 11.6 - 14.4 % [facility] Platelets 307 150 - 450 K/CU MM [facility] MPV 10.2 9.4 - 12.4 fL [facility] nRBC 0 0 - 0 /100 WBC [facility] Specimen Blood Performing Organization Address City/[facility] Phone Number [facility] [address], [place] [phone] CENTER Lipase (02/17/2019 4:18 AM AMALGAMATOR)Only the most recent of2 resultswithin the time period is included. Lipase 72 (H) 6 - 51 U/L [facility] Specimen Blood Narrative Performed At Embroidery Machine Operator ID - [id number] [facility] Specimen slightly icteric Performing Organization Address City/[facility]/Zipcode Phone Number [facility] [address] [place], [place] [phone] Basic Metabolic Panel (02/17/2019 4:18 AM AMALGAMATOR)Only the most recent of3 results within the time period is included. [...] Glucose 84 70 - 110 mg/dL [facility] Calcium 7.8 (L) 8.5 - 10.5 mg/dL [facility] EGFR 187Comment: ESTIMATED GFR IS NOT mL/min/1.73 sq m [facility] ACCURATE CREATININE CLEARANCE IN PREDICTING GLOMERULAR FILTRATION RATE. ESTIMATED GFR IS NOT APPLICABLE FOR DIALYSIS PATIENTS. Specimen Blood Narrative Performed At Embroidery Machine Operator ID - [id number] [facility] Specimen slightly icteric Performing Organization Address City/[facility] Phone Number [facility] [address] [phone] PT/aPTT (02/16/2019 4:23 AM AMALGAMATOR)Only the most recent of3 resultswithin the time period is included. Protime 17.3 (H) 11.9 - 14.[address] [facility] INR 1.5 <=5.9 [facility] PTT 50.8 (H) 22.5 - 36.[address] [facility] Specimen Blood Narrative Performed At Effective 07/03/2018: PT Reference Range [facility] Change New: 11.9-14.2Previous: 11.7-14.7 RECOMMENDED COUMADIN/WARFARIN INR THERAPY RANGES STANDARD DOSE: 2.0-3.0Includes: PROPHYLAXIS for venous thrombosis, systemic embolization; TREATMENT for venous thrombosis and/or pulmonary embolus. HIGH RISK: Target INR is 2.5-3.5 for patients wiht mechanical heart valves. Performing Organization Address City/State/Zipcode Phone Number [facility] [address] [address] [place] Prothrombin time/INR (02/16/2019 4:23 AM AMALGAMATOR)Only the most recent of3 results within the time period is included. Protime 17.3 (H) 11.9 - 14.[address] [facility] INR 1.5 <=5.9 [facility] Specimen Blood Narrative Performed At Effective 07/03/2018: PT Reference Range [facility] Change New: 11.9-14.2Previous: 11.7-14.7 RECOMMENDED COUMADIN/WARFARIN INR THERAPY RANGES STANDARD DOSE: 2.0-3.0Includes: PROPHYLAXIS for venous thrombosis, systemic embolization; TREATMENT for venous thrombosis and/or pulmonary embolus. HIGH RISK: Target INR is 2.5-3.5 for patients wiht mechanical heart valves. Performing Organization Address City/[facility] Phone Number [address] [address] [place] Hepatic function panel (02/16/2019 4:23 AM AMALGAMATOR)Only the most recent of3 results within the time period is included. Protein, Total 5.2 (L) 6.0 - 8.3 gm/dL [facility] Albumin 1.8 (L) 3.5 - 5.0 g/dL [facility] Total Bilirubin 2.4 (H) 0.2 - 1.2 mg/dL [facility] Bilirubin, Direct 1.8 (H) 0.1 - 0.5 mg/dL [facility] Alkaline Phosphatase 823 (H) 40 - 150 U/L [facility] AST 27 5 - 34 U/L [facility] ALT 23 6 - 55 U/L [facility] Specimen Blood Narrative Performed At Embroidery Machine Operator HELIO - SOTERO Hernandez [facility] Performing Organization Address City/State/Zipcode Phone Number [facility] [address] [place] [address] CENTER REPORT OF PROCEDURE - ENDOSCOPY URL (02/15/2019 12:51 PM AMALGAMATOR) Narrative Performed At This result has an attachment that is no t available. [place] ERCP (02/15/2019 12:32 PM AMALGAMATOR) Specimen Narrative Performed At FINAL REPORT GE RIS A fluoroscopic unit was utilized for a p rocedure performed in the operating room. No interpretation was re quested. Please refer to the operative report regarding findings. Ple ase refer to PACS for patient radiation dose information. Signed: Farzad Bowman MD Report Verified Date/Time:02/16/2019 09:17:37 Reading Location: [facility] C0[facility] CT Body R eading Room Procedure Note Interface, External Ris In - 02/16/2019 9:19 AM AMALGAMATOR FINAL REPORT A fluoroscopic unit was utilized for a p rocedure performed in the operating room. No interpretation was re quested. Please refer to the operative report regarding findings. Ple ase refer to PACS for patient radiation dose information. Signed: Farzad Bowman MD Report Verified Date/Time: 02/16/2019 0 9:17:37 Reading Location: [facility] C013Y CT Body R eading Room Performing Organization Address City/State/Zipcode Phone Number GE RIS CYTOLOGY REQUEST (02/15/2019 12:26 PM AMALGAMATOR) Cytology See Separate Report [facility] Specimen Brushings Performing Organization Address City/State/Zipcode Phone Number [facility] [address] [place] [address] CENTER Cytology (02/15/2019 12:26 PM AMALGAMATOR) Case Report Medical Cytology Report Case: [id number] [facility] Authorizing Provider:Uriah Riddleected: 02/15/2019 1226 [facility] Ordering Location: [address] Received:02/15/2019 1529 Service Pathologist: Nereyda Causey MD Specimen:Common Bile Duct, Distal bile duct brushing in CRR DIAGNOSIS COMMON BILE DUCT BRUSHING (CYTOSPINS AND CELL BL OCK): [facility] AT[facility]ICAL CELLS PRESENT, FAVOR REACTI VE (SEE COMMENT) [facility] Signing Pathologist Direct Phone Line: COMMENT Few mildly atypical cells [facility] are present and with the [facility] history of stent, a reactive process is favored. Clinical correlation is recommended. CPT Code(s) 09160, 7[address] [facility] ER CLINICAL DATA Jaundice, a localized [facility] biliary stricture with [facility] upstream dilation SPECIMEN SOURCE COMMON BILE DUCT BRUSHING [facility] DESCRIPTION 15 mls in cytorich red; 2 cy tospins, cell block (collodion bag) [facility] Collected: [id number] [facility] CE NTER Received: [id number] MICROSCOPIC DESCRIPTION Performed. [facility] STATEMENT OF ADEQUACY Satisfactory [facility] ER Gross assessment was [facility] performed at [place], Department of [facility] Pathology, [address] [place] [id number], Technical component was [facility] performed at [place], Department of [facility] Pathology, [address] [place] [id number], Professional component was [facility] performed at [place], Department of [facility] Pathology, [address] [place] [address], Specimen Brushings Narrative Performed At This result has an attachment that is no t available. Performing Organization Address City/State/Zipcode Phone Number [address] [phone] [place] CBC with platelet count + automated diff (02/15/2019 11:55 AM AMALGAMATOR)Only the most recent of2 resultswithin the time period is included. WBC 12.6 (H) 3.5 - 10.5 K/L [facility] RBC 2.54 (L) 4.63 - 6.08 M/L [facility] MEDICAL CENT ER Hemoglobin 7.6 (L) 13.7 - 17.5 GM/DL [facility] Hematocrit 25.2 (L) 40.1 - 51.0 % [facility] MCV 99.2 (H)Comment: 79.0 - 92.2 fL [facility] MCV RESULT [facility] COMPARED TO PREVIOUS RESULT; CLINICAL CORRELATION REQUIRED. MCH 29.9 25.7 - 32.[address] [facility] MCHC 30.2 (L) 32.3 - 36.5 GM/DL [facility] RDW 23.0 (H) 11.6 - 14.4 % [facility] Platelets 359 150 - 450 K/CU MM [facility] MPV 10.6 9.4 - 12.[address] [facility] [...] Neutros 10.28 (H) 1.78 - 5.38 K/L [facility] # Lymphs 0.94 (L) 1.32 - 3.57 K/L [facility] # Monos 1.06 (H) 0.30 - 0.82 K/L [facility] # Eos 0.17 0.04 - 0.54 K/L [facility] # Baso 0.07 0.01 - 0.08 K/L [facility] Immature 1 0 - 1 % [facility] Granulocytes-Relative [facility] Specimen Blood Performing Organization Address City/State/Zipcode Phone Number [facility] [address] [place] [address] CENTER Manual Differential (02/14/2019 6:24 AM AMALGAMATOR) % Neutros 87 % [facility] % Lymphs 3 % [facility] % Monos 6 % [facility] % Eos 3 % [facility] % Atypical Lymphs 1 (H) 0 - 0 % [facility] # Neutros 7.74 (H) 1.78 - 5.38 K/ul [facility] # Lymphs 0.27 (L) 1.32 - 3.57 K/ul [facility] # Monos 0.53 0.30 - 0.82 K/uL [facility] # Eos 0.27 0.04 - 0.54 K/uL [facility] # Atypical Lymphs 0.09 (H) 0.00 - 0.00 K/uL [facility] Total Counted 100 [facility] Platelet Morphology Normal [facility]udge Cells Present [facility] Polychromasia 2+ moderate [facility] Hypochromia 1+ few [facility] An[facility]ocytosis 2+ moderate [facility] Microcytes [address] [address] [facility] Poikilocytes 1+ few [facility] Schistocytes 1+ few [facility] Platelet Conc Adequate [facility] Specimen Blood Narrative Performed At [employer] Machine Operator ID - Lorenzo Amaro [facility] User comments: Slide comments: Performing Organization Address City/State/Zipcode Phone Number [facility] [address] [place] [address] CENTER after 10/12/2018 Insurance Payer Benefit Plan / Group Subscriber ID Type Phone A ddress MEDICAID - MEDICAID MEDICAID [employer] xxxxxxxxx Medicaid MGD CARE Non-Contracted Advance Directives For more information, please contact:[address] [phone] Code Status Date Activated Date Inactivated Comments [...]
--- OUTSIDE RECORDS SUMMARY | 2019-10-13 13:59 | XMS REPORT | Continuity of Care Document ---
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 [place] SEVERE PANCREATIC 20 [facility] UPPER GI BLEED Active 08/27/19 20 [place] ACUTE UPPER GI Active 08/27/19 BLEED, ACUTE BLOOD 20 [place] LOSS A Illness, 09/01/2019 [place] ILLNESS, Active [place]IED [place] GASTROINTESTINAL Active HEMORRHAGE, [place] UNSPECIF[place] ACUTE Active POSTHEMORRHAGIC [place] ANEMIA HYPOTENSION, Active [place] Medications Medication Details Route Status Patient Ordering Order Source Instructions Provider Date Saline Flush Notes: (Same Active 0.9% as: 2019 [facility] Posiflush) Lidocaine Notes: Active Hydrochloride 10 Preservative 2019 [place] [facility] MG/ML Injectable free. (Same Solution as: Xylocaine MPF) Saline Flush Notes: (Same Active 0.9% as: 2019 [facility] Posiflush) pantoprazole Notes: For IV Active additive 80 mg + push 2019 Sodium Chloride reconstitute 0.9% IV 100 mL with 10 ml 0.9% sodium chloride and push over 2 minutes. (Same as: Protonix) Potassium Notes: Infuse Inactive Chloride at a rate of 2019 10 mEq/hr. (Same as: KCL) ondansetron 2 4 mg = 2 mL, No Longer mg/mL injectable IVP, Q6H, 0 Active 2019 [place] solution Refill(s) D5NS 1,000 mL 1,000 mL, Active Rate: 100 2019 ml/hr, Infuse over: 10 hr, Route: IV, Dosing Weight 68.409 kg, Total Volume: 1,000, Start date: 08/30/19 8:29:00 CDT, Duration: 30 day, Stop date: 09/29/19 8:28:00 CDT, 1.84, m2, 0 Sodium Chloride 250 mL, Route: Active H 0.9% IV IVPB, Start 2019 [facility] date: 08/29/19 16:33:00 CDT, Duration: 30 day, Stop date: 09/28/19 16:32:00 CDT, PRN Line Flush, 0 Dextrose 50% 12.5 gm, 25 Active Syringe (D50W) mL, Route: 2019 [facility] est IVP, Drug Form: INJ, Dosing Weight 68.409, kg, PRN, PRN Blood Glucose Results, Start date: 08/29/19 16:11:00 CDT, Duration: 30 day, Stop date: 09/28/19 16:10:00 CDT, 0 Glucagon 1 mg, Route: Active IM, Drug form: [address] [place] [address] PDR/INJ, PRN, Dosing Weight 68.409, kg, PRN Blood Glucose Results, Start date: 08/29/19 16:11:00 CDT, Duration: 30 day, Stop date: 09/28/19 16:10:00 CDT, 0 Omnipaque 350 Notes: (same Inactive injectable as:Omnipaque 2019 [facility] t solution 350). WASTE: F/P - Black; E - Municipal Trash Bin Potassium Notes: Infuse Inactive Chloride at a rate of 2019 [facility] 10 mEq/hr. (Same as: KCL) Lactulose 667 Notes: (Same Inactive MG/ML Oral as:Chronulac) 2019 [facility] Solution Lactulose 667 Notes: (Same Inactive MG/ML Oral as:Chronulac) 2019 [facility] Solution ondansetron Notes: (Same Active as: Zofran) 2019 [facility] MEDICATION WASTE Product Size: 4 mg Product Wasted: ___ mg Golytely Notes: Inactive (polyethylene 2019 [facility] glycol electrolyte solution 4 Liter bottle) (Same as: Golytely, Colyte) Ondansetron Notes: (Same Inactive as: Zofran) 2019 [facility] MEDICATION WASTE Product Size: 4 mg Product Wasted: ___ mg Acetaminophen 2 tab, PO, Inactive 325 MG / Q4H, PRN for 2019 [facility] Hydrocodone pain, # 84 Bitartrate 5 MG tab, 0 Oral Tablet Refill(s) Ondansetron 4 MG 4 mg = 1 tab, No Longer Disintegrating PO, Q6H, PRN Active 2019 [place] Tablet Nausea / Vomiting, Dissolve tab under tongue, # 10 tab, 0 Refill(s) pantoprazole 40 40 mg = 1 tab, Inactive mg oral enteric PO, Daily, # 2020 [facility] coated tablet 30 tab, 0 Refill(s) Ondansetron Notes: (Same Active as: Zofran) 2019 [facility] MEDICATION WASTE Product Size: 4 mg Product Wasted: ___ mg pantoprazole Notes: For IV No Longer additive 80 mg + push Active 2019 [facility] Sodium Chloride reconstitute 0.9% IV 100 mL with 10 ml 0.9% sodium chloride and push over 2 minutes. (Same as: Protonix) Trazodone Notes: (Same Active As: Desyrel) 2019 [facility] Maalox Advanced Notes: Active Regular Strength (aluminum 2019 [facility] SUSP hydroxide-magn esium hyd-simethicon e [phone]/5 ml 30 ml ud DAKOTAH) Albuterol 0.833 Notes: (Same Active MG/ML / as: Duoneb) 2019 [facility] Ipratropium [place] 0.167 MG/ML Inhalant Solution [DuoNeb] Docusate Sodium Notes: (Same Active 100 MG Oral as: Colace) 2019 [facility] t Capsule [Colace] (Do Not Crush) Robitussin 100 Notes: (Same Active mg/5 mL oral as: 2019 [facility] liquid Robitussin) Zofran Notes: (Same Active as: Zofran) 2019 [facility] MEDICATION WASTE Product Size: 4 mg Product Wasted: ___ mg Hydralazine Notes: (Same Active as: 2019 [facility] Apresoline) Push over 5 minutes Sodium Chloride 1,000 mL, No Longer 0.9% IV 1,000 mL Rate: 100 Active 2019 [facility] ml/hr, Infuse over: 10 hr, Route: IV, Dosing Weight 68.409 kg, Total Volume: 1,000, Start date: 08/28/19 2:15:00 CDT, Duration: 30 day, Stop date: 09/27/19 2:14:00 CDT, 1.84, m2, 0 Saline Flush Notes: Same Active 0.9% as: BD 2019 [facility] Posiflush Sterile pantoprazole Notes: For IV Inactive push 2019 [facility] reconstitute with 10 ml 0.9% sodium chloride and push over 2 minutes. (Same as: Protonix) Morphine Notes: (Same Active as:MORPhine 2019 [facility] Sulfate) Labetalol Notes: (Same Active as: Normodyne, 2019 [facility] Trandate) Push over 2 minutes Give bolus over 2-3 minutes. NS (Bolus) IV 1,000 mL, Inactive 1,000 ml/hr, 2019 [facility] Infuse Over: 1 hr, Route: IV, 1,000, Drug form: INJ, ONCE, Priority: STAT, Dosing Weight 68.409 kg, Start date: 08/28/19 2:07:00 CDT, Stop date: 08/28/19 2:07:00 CDT, 0 Sodium Chloride 1,000 mL, Inactive 0.9% (Bolus) IV 1,000 ml/hr, 2019 [facility] Infuse Over: 1 hr, Route: IV, 1,000, Drug form: INJ, ONCE, Priority: STAT, Dosing Weight 68.409 kg, Start date: 08/28/19 2:01:00 CDT, Stop date: 08/28/19 2:01:00 CDT, 0 ursodiol 500 mg 500 mg = 1 No Longer oral tablet tab, PO, ONCE, Active [address] [place] [address] 0 Refill(s) Esomeprazole 40 mg, PO, No Longer Daily, [address] Refill(s) ferrous sulfate 325 mg = 1 No Longer 325 MG Oral tab, PO, BID, Active 2019 [facility] est Tablet 0 Refill(s) Allergies, Adverse Reactions, Alerts Substance Category Reaction Severity Reaction Status Date Comments S ource type Reported vancomycin Assertion Drug Active MH allergy [facility] piperacillin Assertion Drug Active M H -tazobactam allergy [place] meropenem Assertion Drug Active MH allergy Immunizations No Data Provided for This Section Results Order Name Results Value Reference Date Interpretation Comments Lenka rce Range CHEM PANEL Amylase Lvl 17 25 - 115 08/30 [facility] CHEM PANEL Glucose Lvl 104 70 - 99 08/30 [facility] CHEM PANEL BUN 1 7 - 08/30 [facility] CHEM PANEL Creatinine 0.50 0.50 - 08/30 Lvl 1.40 [facility] CHEM PANEL Sodium Lvl 145 135 - 145 08/30 [facility] CHEM PANEL Potassium 3.1 3.5 - 5.1 08/30 Lvl [facility] CHEM PANEL Chloride Lvl 109 95 - 109 08/30 [facility] CHEM PANEL CO2 25 24 - 32 08/30 [facility] CHEM PANEL AGAP 14.1 10.0 - 08/30 MH 20.0 [facility] CHEM PANEL Calcium Lvl 7.4 8.5 - 10.5 08/30 [facility] CHEM PANEL eGFR 145 08/30 Result Comment: The [facility] eGFR is calculated using the CKD-EPI formula. In most young, healthy individuals the eGFR will be >90 mL/min/1.73m2 . The eGFR declines with age. An eGFR of 60-89 may be normal in some populations, particularly the elderly, for whom the CKD-EPI formula has not been extensively validated. Use of the eGFR is not recommended in the following populations:< br/>
[place] viduals with unstable creatinine concentration s, including patients and those with serious co-morbid conditions.<b r/>
Patie nts with extremes in muscle mass or diet.

The data above are obtained from the National Kidney Disease Education Program (NKDEP) which additionally recommends that when the eGFR is used in patients with extremes of body mass index for purposes of drug dosing, the eGFR should be multiplied by the estimated BMI. CHEM PANEL Lipase Lvl 104 73 - 393 08/30 [facility] HEMATOLOGY WBC 5.9 3.7 - 10.4 / /2019 [facility] HEMATOLOGY RBC 3.00 4.70 - 08/30 MH 6.10 /2019 [facility] HEMATOLOGY Hgb 9.1 14.0 - 08/30 MH 18.0 /2019 [facility] HEMATOLOGY Hct 26.4 42.0 - 08/30 MH 54.0 /2019 [facility] HEMATOLOGY MCV 88.1 80.0 - 08/30 MH 94.0 /2019 [facility] HEMATOLOGY MCH 30.2 27.0 - 08/30 MH 31.0 /2019 [facility] HEMATOLOGY MCHC 34.3 32.0 - 08/30 MH 36.0 /2019 [facility] HEMATOLOGY RDW 14.6 11.5 - 08/30 MH 14.5 /2019 [facility] HEMATOLOGY Platelet 341 133 - 450 08/30 /2019 [facility] HEMATOLOGY MPV 8.8 7.4 - 10.4 08/30 /2019 [facility] HEMATOLOGY Segs 71.9 45.0 - 08/30 MH 75.0 /2019 [facility] HEMATOLOGY Lymphocytes 13.3 20.0 - 08/30 MH 40.0 /2019 [facility] HEMATOLOGY Monocytes 11.1 2.0 - 12.0 08/30 /2019 [facility] HEMATOLOGY Eosinophils 3.1 0.0 - 4.0 08/30 /2019 [facility] HEMATOLOGY Basophils 0.6 0.0 - 1.0 08/30 /2019 [facility] HEMATOLOGY Neutrophils 4.3 1.5 - 8.1 08/30 MH # /2019 [facility] HEMATOLOGY Lymphocytes 0.8 1.0 - 5.5 08/30 MH # /2019 [facility] HEMATOLOGY Monocytes # 0.7 0.0 - 0.8 08/30 /2019 [facility] HEMATOLOGY Eosinophils 0.2 0.0 - 0.5 08/30 MH # /2019 [facility] HEMATOLOGY Basophils # 0.0 0.0 - 0.2 08/30 /2019 [facility] CHEM PANEL Glucose Lvl 57 70 - 99 08/29 [facility] CHEM PANEL BUN 2 7 - 22 08/29 [facility] CHEM PANEL Creatinine 0.40 0.50 - 07 MH Lvl 1.40 /2019 [facility] CHEM PANEL Sodium Lvl 143 135 - 145 08/29 [facility] CHEM PANEL Potassium 3.5 3.5 - 5.1 08/29 MH Lvl /2019 [facility] CHEM PANEL Chloride Lvl 109 95 - 109 08/29 [facility] CHEM PANEL CO2 22 24 - 32 07/ /2020 [facility] CHEM PANEL Calcium Lvl 7.7 8.5 - 10.5 08/29 [facility] CHEM PANEL AGAP 15.5 10.0 - 08/29 MH 20.0 [facility] CHEM PANEL eGFR 159 08/29 Result Comment: The [facility] eGFR is calculated using the CKD-EPI formula. In most young, healthy individuals the eGFR will be >90 mL/min/1.73m2 . The eGFR declines with age. An eGFR of 60-89 may be normal in some populations, particularly the elderly, for whom the CKD-EPI formula has not been extensively validated. Use of the eGFR is not recommended in the following populations:< br/>
[place] viduals with unstable creatinine concentration s, including patients and those with serious co-morbid conditions.<b r/>
Patie nts with extremes in muscle mass or diet.

The data above are obtained from the National Kidney Disease Education Program (NKDEP) which additionally recommends that when the eGFR is used in patients with extremes of body mass index for purposes of drug dosing, the eGFR should be multiplied by the estimated BMI. CHEM PANEL Procalcitoni <0.05 0.00 - 08/29 n Lvl 0.10 [facility] HEMATOLOGY WBC 6.2 3.7 - 10.4 08/29 [facility] HEMATOLOGY RBC 2.92 4.70 - 08/29 MH 6.10 [facility] HEMATOLOGY Hgb 8.5 14.0 - 08/29 MH 18.0 [facility] HEMATOLOGY Hct 26.2 42.0 - 08/29 MH 54.0 [facility] HEMATOLOGY MCV 89.6 80.0 - 08/29 MH 94.0 [facility] HEMATOLOGY MCH 29.0 27.0 - 08/29 MH 31.0 [facility] HEMATOLOGY MCHC 32.4 32.0 - 08/29 MH 36.0 [facility] HEMATOLOGY RDW 15.0 11.5 - 08/29 MH 14.5 [facility] HEMATOLOGY Platelet 323 133 - 450 08/29 [facility] MPV 8.6 7.4 - 10.4 08/29 /2019 [facility] Segs 77.2 45.0 - 08/29 MH 75.0 [facility] HEMATOLOGY Lymphocytes 11.4 20.0 - 08/29 MH 40.0 /2019 [facility] HEMATOLOGY Monocytes 9.1 2.0 - 12.0 08/29 MH /2019 [facility] HEMATOLOGY Eosinophils 1.8 0.0 - 4.0 08/29 MH /2019 [facility] HEMATOLOGY Basophils 0.5 0.0 - 1.0 08/29 MH /2019 [facility] HEMATOLOGY Neutrophils 4.7 1.5 - 8.1 08/29 MH # /2020 [facility] HEMATOLOGY Lymphocytes 0.7 1.0 - 5.5 08/29 MH # /2020 [facility] HEMATOLOGY Monocytes # 0.6 0.0 - 0.8 08/29 MH /2019 [facility] HEMATOLOGY Eosinophils 0.1 0.0 - 0.5 08/29 MH # /2019 [facility] IMMUNOLOGY Coronavirus Not Detected Not 08/28 MH (COVID-19) (08/29/19 6:29 AM) Detected /2019 [facility] CHEM PANEL Glucose Lvl 71 70 - 99 08/28 [facility] CHEM PANEL BUN 3 7 - 22 08/28 [facility] CHEM PANEL Creatinine 0.50 0.50 - 08/28 MH Lvl 1.40 /2019 [facility] CHEM PANEL Sodium Lvl 143 135 - 145 08/28 MH [facility] CHEM PANEL Potassium 3.3 3.5 - 5.1 08/28 MH Lvl /2019 [facility] CHEM PANEL Chloride Lvl 110 95 - 109 08/28 [facility] CHEM PANEL CO2 26 24 - 32 08/28 MH [facility] CHEM PANEL Calcium Lvl 8.2 8.5 - 10.5 08/28 MH /2019 [facility] CHEM PANEL AGAP 10.3 10.0 - 08/28 MH 20.0 [facility] CHEM PANEL eGFR 145 08/28 Result Comment: The [facility] eGFR is calculated using the CKD-EPI formula. In most young, healthy individuals the eGFR will be >90 mL/min/1.73m2 . The eGFR declines with age. An eGFR of 60-89 may be normal in some populations, particularly the elderly, for whom the CKD-EPI formula has not been extensively validated. Use of the eGFR is not recommended in the following populations:< br/>
[place] viduals with unstable creatinine concentration s, including patients and those with serious co-morbid conditions.<b r/>
Patie nts with extremes in muscle mass or diet.

The data above are obtained from the National Kidney Disease Education Program (NKDEP) which additionally recommends that when the eGFR is used in patients with extremes of body mass index for purposes of drug dosing, the eGFR should be multiplied by the estimated BMI. HEMATOLOGY WBC 5.2 3.7 - 10.4 07/ MH /2019 [facility] HEMATOLOGY RBC 2.91 4.70 - 08/28 MH 6.10 [facility] Hgb 8.8 14.0 - 08/28 MH 18.0 /2019 [facility] HEMATOLOGY Hct 25.8 42.0 - 08/28 MH 54.0 /2019 [facility] HEMATOLOGY MCV 88.8 80.0 - 08/28 MH 94.0 /2019 [facility] MCH 30.3 27.0 - 08/28 MH 31.0 /2019 [facility] MCHC 34.1 32.0 - 08/28 MH 36.0 [facility] RDW 14.4 11.5 - 08/28 MH 14.5 [facility] Platelet 316 133 - 450 08/28 /2019 [facility] MPV 8.6 7.4 - 10.4 08/28 /2019 [facility] RBC Morph Normal Normal 08/28 MH (08/29/19 4:30 AM) /2019 [facility] HEMATOLOGY Plt Morph Normal Normal 08/28 MH (08/29/19 4:30 AM) /2019 [facility] HEMATOLOGY Segs 70.7 45.0 - 08/28 MH 75.0 /2019 [facility] Lymphocytes 17.3 20.0 - 08/28 MH 40.0 /2019 [facility] Monocytes 10.4 2.0 - 12.0 08/28 /2019 [facility] HEMATOLOGY Eosinophils 1.0 0.0 - 4.0 08/28 MH /2019 [facility] HEMATOLOGY Basophils 0.6 0.0 - 1.0 08/28 MH /2019 [facility] HEMATOLOGY Neutrophils 3.6 1.5 - 8.1 08/28 MH # /2019 [facility] HEMATOLOGY Lymphocytes 0.9 1.0 - 5.5 08/28 MH # /2019 [facility] HEMATOLOGY Monocytes # 0.5 0.0 - 0.8 08/28 /2019 [facility] Eosinophils 0.1 0.0 - 0.5 08/28 MH # /2019 [facility] BLOOD BANK RBC product Product available 4 08/27 Resul t RESULTS (08/28/19 5:41 AM) /2019 Comment: [facility] 08/28/2019 06:02 [id number]
Blood available, notified Anne WHITNEY at 08/28/2019 06:02 by NS. BLOOD BANK Antibody Negative 08/27 RESULTS Scrn (08/28/19 3:37 AM) /2019 [facility] BLOOD BANK ABO/Rh A POS 08/27 RESULTS /2019 [facility] CHEM PANEL Total 5.1 6.4 - 8.4 08/27 Protein /2019 [facility] CHEM PANEL Albumin Lvl 1.2 3.5 - 5.0 08/27 [facility] CHEM PANEL ALT 7 0 - 65 08/27 /2019 [facility] CHEM PANEL AST 14 0 - 37 08/27 [facility] CHEM PANEL Alk Phos 88 39 - 136 08/27 [facility] CHEM PANEL Bili Total 0.3 0.2 - 1.3 08/27 [facility] CHEM PANEL B/C Ratio 12 6 - 25 08/27 [facility] CHEM PANEL Globulin 3.9 2.7 - 4.2 08/27 [facility] CHEM PANEL A/G Ratio 0.3 0.7 - 1.6 08/27 [facility] HEMATOLOGY PT 17.3 12.0 - 08/27 MH 14.7 [facility] HEMATOLOGY INR 1.40 0.85 - 08/27 1.17 [facility] HEMATOLOGY PTT 45.5 22.9 - 08/27 35.8 [facility] HEMATOLOGY RBC Morph Normal Normal 08/27 (08/28/19 3:37 AM) [facility] HEMATOLOGY Plt Morph Normal Normal 08/27 (08/28/19 3:37 AM) [facility] HEMATOLOGY Basophils # 0.0 0.0 - 0.2 08/27 [facility] Pathology Reports No Data Provided for This Section Diagnostic Reports Report Value Date Source Chest 2 views DX EXAM: XR CHEST 2 VIEWS 09/10/2019 [facility] DATE: 09/10/2019 9:36 CDT Center INDICATION: - eval pleural effusions COMPARISON: Chest radiograph 09/05/2019 TECHNIQUE: PA and lateral chest radiographs. FINDINGS: Lines, tubes and hardware: T he right arm PICC tip is heading towards the neck and projects outside the [id number]. Lungs and pleura: Pulmonary vascularity is normal. Left basilar subsegmental atelectasis. A small left pleural effusion is present, the right costophrenic sulcus is clear. No pneumothorax is identified. Heart and mediastinum: The h eart size is normal. The mediastinal contours are normal. Bones and soft tissues: No acute abnormality. IMPRESSION: 1. The right arm PICC is ma lpositioned with tip heading towards the neck and projecting outside the [id number]. Recommend repositioning. 2. There is interval improv ement of small left pleural effusion status post thoracentesis. 3. Left retrocardiac subsegmental atelectasis. Finding #1 was discussed wit radha Sanchez via telephone on 09/10/2019 at 1531 hours. Thoracentesis wo PROCEDURE: Ultrasound-guided thoracentesis 04/2019 [facility] catheter US Procedural Personnel Center Attending physician(s): Jack Fellow physician(s): None Resident physician(s): None Advanced practice provider(s): None Pre-procedure diagnosis: Pleural effusion Post-procedure diagnosis: Same Indication: Pleural effusion with suspicion of i nfection Additional clinical history: None Complications: No immediate complications. IMPRESSION: Successful ultrasound-guided left thoracentesis with drainage of 10cc of purulent fluid. Plan: Resume care by clinical team. PROCEDURE SUMMARY: - Limited thoracic ultrasound - Ultrasound-guided thoracentesis - Additional procedure(s): None PROCEDURE DETAILS: Pre-procedure Consent: Informed consent fo r the procedure including risks, benefits and alternatives was obtained and time-out was performed prior to the procedure. Preparation: The site was pr epared and draped using maximal sterile barrier technique including cutaneous antisepsis. Anesthesia/sedation Level of anesthesia/sedation: General anesthesia Anesthesia/sedation administered by: Per anesthe cleo Total intra-service sedation time (minutes): Per anesthesia Limited thoracic ultrasound Limited thoracic ultrasound was performed using a curved transducer. A safe window for thoracentesis was identified. Left hemithorax findings: minimal complex, multi septated pleural effusion Thoracentesis Local anesthesia was adminis tered. The pleural space was accessed and fluid return confirmed position. The fluid was drained. Real-time ultrasound guidance used: Yes Needle placed: 20-gauge Chiba Closure The needle was removed. A sterile bandage was ap plied. Post-drainage hemithorax findings: no significan t change Additional Details Additional description of procedure: None Equipment details: None Specimens removed: Pleural fluid Estimated blood loss (mL): Less than 1 Standardized report: [email or web address] Attestation Signer name: Ronny Santiago MD I attest that I was present for the entire procedure. I reviewed the stored images and agree with the report as written. Vascular/Interventional PROCEDURE: Ultrasound-guided thoracentes is 09/08/2019 [facility] Medical Radiology Consult Procedural Personnel Center Attending physician(s): Jack Fellow physician(s): None Resident physician(s): None Advanced practice provider(s): None Pre-procedure diagnosis: Pleural effusion Post-procedure diagnosis: Same Indication: Pleural effusion with suspicion of i nfection Additional clinical history: None Complications: No immediate complications. IMPRESSION: Successful ultrasound-guided left thoracentesis with drainage of 10cc of purulent fluid. Plan: Resume care by clinical team. PROCEDURE SUMMARY: - Limited thoracic ultrasound - Ultrasound-guided thoracentesis - Additional procedure(s): None PROCEDURE DETAILS: Pre-procedure Consent: Informed consent fo r the procedure including risks, benefits and alternatives was obtained and time-out was performed prior to the procedure. Preparation: The site was pr epared and draped using maximal sterile barrier technique including cutaneous antisepsis. Anesthesia/sedation Level of anesthesia/sedation: General anesthesia Anesthesia/sedation administered by: Per anesthe cleo Total intra-service sedation time (minutes): Per anesthesia Limited thoracic ultrasound Limited thoracic ultrasound was performed using a curved transducer. A safe window for thoracentesis was identified. Left hemithorax findings: minimal complex, multi septated pleural effusion Thoracentesis Local anesthesia was adminis tered. The pleural space was accessed and fluid return confirmed position. The fluid was drained. Real-time ultrasound guidance used: Yes Needle placed: 20-gauge Chiba Closure The needle was removed. A sterile bandage was ap plied. Post-drainage hemithorax findings: no significan t change Additional Details Additional description of procedure: None Equipment details: None Specimens removed: Pleural fluid Estimated blood loss (mL): Less than 1 Standardized report: [id number] Attestation Signer name: Ronny Santiago MD I attest that I was present for the entire procedure. I reviewed the stored images and agree with the report as written. Abd Liver Protocol w/wo EXAM: CT ABDOMEN WITHOUT AND WITH CONTRA ST 09/05/2019 [facility] IV contrast CT DATE: 09/05/2019 7:54 CDT Center INDICATION: - concern for splenic vein thrombos is ADDITIONAL INFORMATION: None. COMPARISON: CT abdomen and pelvis with contrast 08/29/2019 TECHNIQUE: Volumetric CT of the abdomen acquired before and after the intravenous administration of contrast, in precontrast, arterial, portal venous and delayed phases of enhancement, per the dynamic l iver protocol. Axial, sagitt al and coronal images are provided. Study quality is optimal. IV contrast: 120 mL Omnipaque 350 Enteric contrast: None. DLP (mGy-cm): 1438.90. FINDINGS: Dental Coordinator: Noncontributory. Lines, tubes and hardware: None. Lower thorax: * Small loculated left pleu ral effusion with pleural thickening and passive subsegmental atelectasis of left lower lobe.. * Small right pleural effus ion and passive subsegmental atelectasis of lower lobes, unchanged. Liver: Craniocaudal length: 14.8 cm. Density: Normal. Surface: Normal. Hepatic masses: None. Non-enhancing/cystic hepatic lesions: None. Hepatic vessels: Hepatic arterial anatomy: Conventional. Portal vein: Patent. Caliber: 1.1 cm Portosystemic collaterals: Extensive perigastric varices. 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 Biliary tree: * Mild extrahepatic biliary ductal dilation with CBD measuring 7 mm in caliber with abrupt narrowing at the level of pancreas. There is diffuse wall enhancement, and surrounding fat stranding. * Mild pneumobilia, likely related to recent ER CP.. * Interval removal of biliary stent and improve ment of pneumobilia Gallbladder: No gallbladder calculus, wall thickening or pericholecystic fluid. Pancreas: * Mild peripancreatic fat stranding and free fl uid. * No ductal dilation. Spleen: Splenomegaly measuring 15 cm in length. Adrenals: No nodularity or irregularity. Kidneys and ureters: No hydr onephrosis hydroureter. No solid or cystic renal lesions. Gastrointestinal tract: Lower esophagus: Normal. Stomach: Normal. Small bowel: Mild reactive wall thickening of du odenum. Colon: No abnormal focal thickening in the visua lized portion. Peritoneum, mesentery and retroperitoneum: * Unchanged 3.7 x 2.2 x 1.4 cm (craniocaudal by maximum axial dimensions) rim- enhancing peripancreatic collection in the splenic hilar region (series 13 image 78 and series 11 image 40) with interval d evelopment of foci of air/ga s. Please note that this collection is located just inferior to the splenic arterial branches. * Small ascites seen perisplenic space. Lymph nodes: Normal. Extrahepatic vasculature: Aorta and branches: Normal. IVC and veins: Normal. Bones: No acute abnormality. Soft tissues: Normal. IMPRESSION: 1. Redemonstrated peripancr eatic fluid collection/pseudocyst at the tail of pancreas/splenic hilar region, measuring 3.7 x 2.2 x 1.4 cm. Interval visualization of tiny foci of air within the collection, concerning for superimposed infection. 2. 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 3. Changes of ongoing interstitial pancreatitis . 4. Interval removal of biliary stent and improv ement of pneumobilia. 5. Mild dilation of CBD wit h diffuse wall enhancement and narrowing at the level of pancreas, may be reactive to inflammatory changes or postprocedural. Correlate clinically to rule out cholangitis. 6. Small amount ascites 7. Unchanged small right si ded pleural effusion and left sided pleural effusion/empyema. Chest 1 v for Placement EXAM: XR CHEST 1 VIEW 09/05/2019 [facility] DX DATE: 09/05/2019 13:44 CDT Center INDICATION: Line Placement - RUE PICC LINE INSER TION COMPARISON: Yesterday TECHNIQUE: AP chest. IMPRESSION: Interval placement of right PICC it is tip projecting over the cavoatrial junction.Stable cardiomediastinal silhouette. Stable small left pleural effusion. Trace right pleural effusion. Stable left retr ocardiac opacity, likely lef t pleural effusion with or without superimposed atelectasis or consolidation. Small hyperdensity is seen over the left upper abdominal quadrant, unchanged. CONCLUSION: Interval placement of right PICC it is tip projecting over the cavoatrial junction.No pneumothorax in this portable radiograph. Other findings as above. Chest 1view DX EXAM: AP VIEW OF THE CHEST 09/04/2019 [facility] DATE: 09/04/2019 1:45 PM CDT [facility] er INDICATION: Dyspnea - Right Thoracentesis COMPARISON: CXR 09/02/2019 TECHNIQUE: Single frontal view of the chest. FINDINGS: Lines and Tubes: Overlying electrocardiogram leads. Endo Clip overlies the left upper quadrant in the likely region of the proximal gastric body. The visualized bones, soft tissues and cardiac s ilhouette are unchanged. IMPRESSION: * Persistent but decreased small left pleural effusion with associated atelectasis/consolidation with left retrocardiac opacities. * No right pleural effusion. * No definite pneumothorax in the semiupright r adiograph. * Mild to moderate gaseous distention of the st omach. ERCP Diagnostic DX EXAM: FLUOROSCOPY ERCP 09/04/2019 [facility] DATE: 09/04/2019 at 1705 hours C enter INDICATION: Pancreatic and gastrointestinal blee d ADDITIONAL INFORMATION: None. COMPARISON: Radiograph abdomen of 09/02/2019 at 0937 hours TECHNIQUE: 17 images were provided for interpret ation. FLUOROSCOPY TIME: 1.3 minutes FLUOROSCOPY DOSE: 18.40 mGy FINDINGS: Stent is noted on 1st image. Endoscopic cannulation is followed by instillation of contrast into the biliary tree, stent removal, and balloon sweep. IMPRESSION: 1. Stent removal and balloon sweep 2. Please reference procedu re note in the electronic medical record for further details. Chest wo contrast CT EXAM: CT CHEST WITHOUT CONTRAST 09/02/2019 [facility] DATE: 09/02/2019 12:06 CDT Center INDICATION: - L sided effusion on CXR. Nolan mora more detail ADDITIONAL INFORMATION: 29-y ear-old male with autism, lupus, and pancreatitis who was transferred for evaluation of increasing dizziness, syncopal episode, and weakness. Patient reportedly had 2 days of bloody bowel movements and found to have hemoglobin of 6.2 with hypotension. No report of hematemesis or coffee-ground emesis. COMPARISON: Chest radiograph 09/02/2019 at 0935 hours, CT abdomen pelvis 08/29/2019 TECHNIQUE: Volumetric CT of the chest is acquired without contrast. Axial, coronal and sagittal images are provided. IV contrast: None. DLP (mGy-cm): 162.7. FINDINGS: Dental Coordinator: Noncontributory. Lines, tubes and hardware: None. Lower neck: The visible por tions or the lower neck and thyroid are unremarkable. Axilla: Scattered subcentimeter axillary lymph n odes. Airway: Patent. Lungs and pleura: There is interval increase in right-sided pleural effusion. The left-sided pleural effusion appears similar in size compared to the prior study. The left-sided pleural effusion shows scattered hyperdensities and pleural thickening. Adjacent passive atelectasis of both lower lobes are noted. Consolidation of the bilateral lower lobes are also noted. The pleural fluid on the left appe ars to extend into the fissu re, similar though incompletely visualized on the prior CT abdomen pelvis. A calcified granuloma is present within the right upper lobe (series 5, image 33). An additional ca lcified granuloma is present within the right lower lobe (series 5, image 62). Mediastinum, cassi and intrat horacic lymph nodes: Scattered subcentimeter mediastinal lymph nodes. Heart, pericardium and great vessels: The heart is normal in size. A small pericardial effusion is noted. No coronary artery calcifications are identified. Upper abdomen: The spleen i s enlarged but stable. Pneumobilia is again noted. Postsurgical changes of cholecystectomy. There is limited evaluation of the previously identified hypodensity in the pancre atic tail in this noncontras leti study. A metallic hyperdensity is again noted within the body of the stomach. An internal common bile duct stent is partially visualized. Bones: No acute abnormality. Soft tissues: Mild bilateral symmetric gynecomas tia. IMPRESSION: 1. There is interval increase in right-sided pl eural effusion. 2. The left-sided pleural e ffusion is similar in size with persistent tracking of fluid into the major fissure. It is also hyperintense with associated pleural thickening which may represent an empyema. 3. Bilateral lower lobe con solidations have worsened compared to the prior study likely represent pneumonia and/or aspiration. 4. Persistent splenomegaly and pneumobilia. 5. There is limited evaluat ion of the previously identified hypodensity at the pancreatic tail in this noncontrasted study. Abdomen AP DX EXAM: XR ABDOMEN 1 VIEW 09/02/2019 [facility] DATE: 09/02/2019 8:59 CDT Center INDICATION: - History of Pancreatitis and GI bl eed ADDITIONAL INFORMATION: None. COMPARISON: CT abdomen pelvis 08/29/2019 TECHNIQUE: Single frontal image of the abdomen. FINDINGS: Lines and tubes: Right upper quadrant biliary st ent. Endo Clip projects over the left medial upper qu adrant. Overlying EKG leads. Lower thorax: Small left ple ural effusion with associated atelectasis/consolidation. Bowel: [id number] gaseous distention of th e stomach. Gaseous distention of nondilated small and large bowel loops. Tiny rectal gas. Solid organs: No abnormal mass or organomegaly s een. Calcifications: No abnormal calcifications found . Bones: Normal. IMPRESSION: 1. Mild to moderate gaseous distention of the s tomach. 2. No dilated small or large bowel gas pattern. Chest 1view DX EXAM: XR CHEST 1 VIEW 09/02/2019 [facility] DATE: 09/02/2019 8:59 AM CDT Cent er INDICATION: - History of cough COMPARISON: No prior chest x-ray. TECHNIQUE: AP chest IMPRESSION: 1. The limitation wires superimposing over the c hest wall. 2. Left-sided small pleural effusion silhouetting the left hemidiaphragm is noted. Left lower lung zone opacities could be consistent with compression atelectasis. Infectious process cannot be excluded. No right pleural effusion. No pneumothorax within the limitation of semierect study. 3. Cardiomediastinal silhouette is normal in siz e. 4. No acute osseous abnormality. Abdomen w IV contrast CT Radiation Dose CTDIVOL = 0 (mGy): D LP = 169 (mGy-cm) 08/29/2019 [facility] PROCEDURE INFORMATION: Exam: CT Abdomen With Contrast Exam date and time: 08/29/2019 3:15 PM Age: 29 years old Clinical indication: /suspic ion of gastric outlet obstruction and large gastric fundus varices. TECHNIQUE: Imaging protocol: Computed tomography images of the abdomen with intravenous contrast. Radiation optimization: All CT scans at this facility use at least one of these dose optimization techniques: automated exposure control; mA and/or kV adjustment per patient size (includes targeted e xams where dose is matched to clinical indication); or iterative reconstructio n. Contrast material: OMNI 350; Contrast volume: 65 ml; Contrast route: INTRAVENOUS (IV); COMPARISON: No relevant prior studies available. RADIATION DOSE METRICS: Total DLP (mGy-cm): 169 FINDINGS: Lungs: Left lower lobe consolidation and a lingu lar consolidation suspicious for pneumonia. Pleural space: Small left pl eural effusion with surrounding pleural enhancement suspicious for infection/emp yema. There is also a small right pleural effusion. Liver: Fatty infiltration of the liver. No focal hepatic lesion identified. Gallbladder and bile ducts: Common bile duct tyson nt is identified there is evidence of pneumobilia. No biliary ductal dilat ation. Pancreas: There is indistinctness of the pancrea tic parenchyma suspicious for pancreatitis. A fluid collection is identified a t the tail the pancreas measuring 2.3 cm. Air-fluid collection s een extending from the duodenum to the pancreas suggesting fistulous communication. Spleen: Spleen is enlarged measuring up to 14 cm . Adrenals: Normal. No mass. Kidneys and ureters: Normal. No hydronephrosis. Stomach and bowel: Abnormal gastric wall thickening and enhancement suspicious for gastritis. Multiple perigastric varices are identified along the greater and lesser curvature of the stomach. The stomach is not distended. No bowel obstruction. Intraperitoneal space: No free intraperitoneal a ir. Small volume abdominal ascites. Lymph nodes: No enlarged lymph nodes. Vasculature: There also paraesophageal varices a nd varices at the splenic hilum. Abdominal aorta is normal in caliber. Byron or arterial branches of the aorta are patent. Suboptimal opacification of th e portal and splenic veins limiting their evaluation. Bones/joints: Unremarkable. No acute fracture. N o dislocation. Soft tissues: Unremarkable. IMPRESSION: 1. Findings suspicious for pancreatitis with 2.3 cm fluid collection at the pancreatic tail 2. Air-fluid collection extending from t he duodenum to the pancreas suspicious for fistulous communication. 3. Diffuse gastric wall thickening and enhanceme nt suspicious for gastritis with no evidence for gastric outlet obstruction. 4. Numerous abdominal varices including paraesophageal and perigastric varices with splenomegaly consistent with portal hyperte nsion 4. Complex left small pleural fluid floridalma ection with enhancement suspicious for empyema. 5. Left lower lobe and lingular consolidations/p neumonia. Carlota Mcgrath MD On 08/29/2019 16:04: 54; [id number] Consultation Notes No Data Provided for This Section Discharge Summaries No Data Provided for This Section History and Physicals No Data Provided for This Section Vital Signs Vital Sign Value Date Comments Source Heart Rate 86 09/01/2019 [facility] Respitory Rate 18 09/01/2019 [facility] Systolic (mm Hg) 106 09[facility]01/2019 [place] [facility] Diastolic (mm Hg) 69 09/01/[address] [place] [address] Respitory Rate 18 09/01/2019 [facility] Temperature Oral (F) 99.1 F 09/01/2019 [place] [facility] Rate 101 09/01/2019 [facility] Respitory Rate 18 09/01/2019 [facility] Systolic (mm Hg) 98 09/01/2019 [place] [facility] Diastolic (mm Hg) 68 09/01/[address] [place] [address] Temperature Oral (F) 98.3 F 08/31/2019 [place] [facility] Rate 76 08/31/2019 [facility] Systolic (mm Hg) 107 08/31/2019 [facility] t Diastolic (mm Hg) 72 08/31/[address] [place] [address] Temperature Oral (F) 98.4 F 08/31/2019 [place] Height 177.8 cm 08/28/2019 [facility] Weight 68.409 08/28/2019 [facility] BMI Calculated 21.64 08/28/2019 [facility] Encounters Location Location Encounter Encounter Reason Attending ADM CT Stat Source Details Type Number For Provider Date Date Visit [facility] Inpatient [id number] Carlos 08/27 08/27 Nigel Becerrajeih /2019 [facility] Procedures No Data Provided for This Section Assessment and Plan Assessment and Plan Date Source Extracted from:Title: Progress Note 09/01/2019 [facility] Author: Cindy Elmore MD Date: 08/31/19 1.Acute blood loss anemia(D62) 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 Patient will also require hepatology ev aluation for possible cirrhosis and varices No bleeding since, patient as remained stable Thank you for allowing me to participa te in her care and please do not hesitate to contact me with any questions or concerns. Please excuse any typographical errors, documentation prepared using electronic dictation softwareandmay contain unintendedword substitutions. 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 Now with acute onset of GI bleed. Patient is being resuscitated at the [facility], getting his 4th unit of PRBC, no hematemesis reported by mother or EMS Vitally stable Plan: Patient is on PPI gtt Zofran 4 mg q6 h to avoid nausea Check H&H post transfusion Plan for upper endoscopy and colonoscopy in AM Biliary stent needs to be evaluated by t he specialists at [facility] or [place], since all liver labs look unremarkable, would not remove it at the moment. Clear liquid diet NPO midnight Thank you for allowing me to participate in her care and please do not hesitate to contact me with any questions or concerns. Please excuse any typographical errors, documentation prepared using electronic dictation softwareandmay contain unintendedword substitutions. Extracted from:Title: History and Physical Author: Carlos Zarate MD Date: 08/28/19 This is a 29-year-old man with autism, l upus, prior pancreatitiswho is admitted to inpatient statusintermediate care unit level of care secondary to acuteGI bleed, acute blood loss anemia. We will manage on telemetry under contin uous cardiac monitoring. Sendblood to the labfor type and screen. Trend hematocrithemoglobinevery 6 hours. Reviewed results and make additional recommendations on transfusion. It is likely the patient w ill require additionalPRBC transfusions. Bolus 1 L normal saline. Continue withlactated Ringer's IV solution at 100 cc an hour. Gastroenterology consultation is already been obtained we will follow the recommendations. Begin Protonix 80 mg IV x1 dose. Continue with Protonix IV infusion drip. Control pain with morphine sulfate 2 mg IV every 4 hours PRN. Cont rol nausea with Zofran 4 mg IV every 6 h ours PRN. Order CBC complete metabolic panelmagnesium. Resume other home medications as soon as a full list is brought for medication reconciliation. Initiate DVT prophylaxis GI prophylaxis. Additional recommendations will depend on results of the diagnostics. Acute blood loss anemia(D62) Ordered: Admit/Condition, 08/28/19 2:15:00 CDT, S tatus: Inpatient, IMU, Expected LOS: 3 or Greater Midnights, Carlos Zarate MD, Sarah WADE Review/Approve Yes, Isolation: No Isolation/Standard Precautions , Acute upper GI bleed | Acute blood loss anemia | Hypotensi on Acute upper GI bleed(K92.2) Ordered: Admit/Condition, 08/28/19 2:15:00 CDT, S tatus: Inpatient, IMU, Expected LOS: 3 or Greater Midnights, Carlos Zarate MD, Sarah WADE Review/Approve Yes, Isolation: No Isolation/Standard Precautions , Acute upper GI bleed | Acute blood loss anemia | Hypotensi on Hypotension(I95.9) Ordered: Admit/Condition, 08/28/19 2:15:00 CDT, S tatus: Inpatient, IMU, Expected LOS: 3 or Greater Midnights, Carlos Zarate MD, Sarah WADE Review/Approve Yes, Isolation: No Isolation/Standard Precautions , Acute upper GI bleed | Acute blood loss anemia | Hypotensi on Plan of Care No Data Provided for This Section Social History Social History Date Source Social History TypeResponse 08/28/2019 [facility] Alcohol Never Substance Abuse Use: None. Smoking Status Never smoker; Previous treatment: None; Exposure to Tobacco Smoke None; Cigarette Smoking Last 365 Days No; Reg Smoking Cessation Counseling No entered on: 08/28/19 Family History No Data Provided for This Section Advance Directives No Data Provided for This Section Functional Status No Data Provided for This Section"
--- OUTSIDE RECORDS SUMMARY | 2019-10-13 13:59 | XMS REPORT | Summary of Care ---
:1990 Author Organization [facility] Address [address] [place] [id number]- Encounter HQ Mitulr_mai(FIN) [id number] Date(s): 08/28/[address] [address]- Encounter Diagnosis Illness, unspecified (Final) - Attending Physician: Carlos Zarate MD Admitting Physician: Carlos Zarate MD Vital Signs Most recent to oldest 1 2 3 [Reference Range]: Height 177.8 cm (08/28/19 1:22 AM) Current Weight 72.273 kg 72.091 kg (08/30/19 6:11 AM) (08/29/19 5:00 AM) Temperature Oral [96.4-99.1 99.1 DegF 98.3 DegF 98.4 DegF DegF] (08/31/19 7:33 PM) (08/31/19 4:00 PM) (08/31/19 12: 00 PM) Blood Pressure [90-140/60-90 106/69 mmHg 98/68 mmHg 107 /72 mmHg mmHg] (08/31/19 11:14 PM) (08/31/19 7:33 PM) (08/31/19 4: 00 PM) Respiratory Rate [14-20 18 BRMIN 18 BRMIN 18 BRMIN BRMIN] (08/31/19 11:14 PM) (08/31/19 8:19 PM) (08/31/19 7: 33 PM) Peripheral Pulse Rate [60-100 86 bpm 101 bpm 76 bpm bpm] (08/31/19 11:14 PM) *HI* (08/31/19 4:00 PM) (08/31/19 7:33 PM) Weight 68.409 kg (08/28/19 1:22 AM) Body Mass Index 21.64 m2 (08/28/19 1:22 AM) Problem List No data available for this section Allergies, Adverse Reactions, Alerts Substance Reaction Severity Status vancomycin Active piperacillin-tazobactam Active meropenem Active Medications acetaminophen-hydrocodone 325 mg-5 mg oral tablet 2 tab, PO, Q4H, PRN for pain, # 84 tab, 0 Refill(s) Start Date: 08/28/19 Stop Date: 08/28/19 Status: DiscontinuedColace 100 mg oral capsule 100 mg, 1 cap, Route: PO, Drug form: CAP, BID, Dosing Weight 68.409, kg, PRN Constipation, Start date: 08/28/19 2:15:00 CDT, Duration: 30 day, Stop date: 09/27/19 2:14:00 CDT, 0 Notes: (Same as: Colace) (Do Not Crush) Start Date: 08/28/19 Stop Date: 09/27/19 Status: BfiuoctS0CT 1,000 mL 1,000 mL, Rate: 100 ml/hr, Infuse over: 10 hr, Route: IV, Dosing Weight 68.409 kg, Total Volume: 1,000, Start date: 08/30/19 8:29:00 CDT, Duration: 30 day, Stop date: 09/29/19 8:28:00 CDT, 1.84, m2, 0 Start Date: 08/30/19 Stop Date: 09/29/19 Status: OrderedDextrose 50% Syringe (D50W) 12.5 gm, 25 mL, Route: IVP, Drug Form: INJ, Dosing Weight 68.409, kg, PRN, PRN Blood Glucose Results, Start date: 08/29/19 16:11:00 CDT, Duration: 30 day, Stop date: 09/28/19 16:10:00 CDT, 0 Start Date: 08/29/19 Stop Date: 09/28/19 Status: OrderedDextrose 50% Syringe (D50W) 25 gm, 50 mL, Route: IVP, Drug Form: INJ, Dosing Weight 68.409, kg, PRN, PRN Blood Glucose Results, Start date: 08/29/19 16:11:00 CDT, Duration: 30 day, Stop date: 09/28/19 16:10:00 CDT, 0 Start Date: 08/29/19 Stop Date: 09/28/19 Status: OrderedDuoNeb inhalation solution 3 ml, Route: NEB, Drug Form: SOLN, Dosing Weight 68.409, kg, PRN, PRN Respiratory Protocol, Start date: 08/28/19 2:15:00 CDT, Duration: 30 day, Stop date: 09/27/19 2:14:00 CDT, 0 Notes: (Same as: Duoneb) Start Date: 08/28/19 Stop Date: 09/27/19 Status: Orderedesomeprazole 40 mg, PO, Daily, 0 Refill(s) Start Date: 08/27/19 Stop Date: 08/30/19 Status: Discontinuedglucagon 1 mg, Route: IM, Drug form: PDR/INJ, PRN, Dosing Weight 68.409, kg, PRN Blood Glucose Results, Startdate: 08/29/19 16:11:00 CDT, Duration: 30 day, Stop date: 09/28/19 16:10:00 CDT, 0 Start Date: 08/29/19 Stop Date: 09/28/19 Status: OrderedGoLYTELY 4,000 ml, Route: PO, Drug Form: PDR/REC, Dosing Weight 68.409, kg, ONCE, Start date: 08/28/19 14:31:00 CDT, Stop date: 08/28/19 14:31:00 CDT, 0 Notes: (polyethylene glycol electrolyte solution 4 Liter bottle) (Same as: Toshia Izquierdo) Start Date: 08/28/19 Stop Date: 08/28/19 Status: CompletedhydrALAZINE 20 mg, 1 mL, Route: IVP, Drug form: INJ, Q4H, Dosing Weight 68.409, kg, PRN, Start date: 08/28/19 2:15:00 CDT, Duration: 30 day, Stop date: 09/27/19 2:14:00 CDT, systolic > 180, 0 Notes: (Same as: Apresoline)Push over 5 minutes Start Date: 08/28/19 Stop Date: 09/27/19 Status: Orderediron sulfate (ferrous sulfate) 325 mg oral tablet 325 mg = 1 tab, PO, BID, 0 Refill(s) Start Date: 08/27/19 Stop Date: 08/30/19 Status: Discontinuedlabetalol 20 mg, 4 mL, Route: IVP, Drug form: INJ, Q4H, Dosing Weight 68.409, kg, PRN, Priority: STAT, Start date: 08/28/19 2:07:00 CDT, Duration: 30 day, Stop date: 09/27/19 2:06:00 CDT, systolic > 160, 0 Notes: (Same as: Normodyne, Trandate)Push over 2 minutes Give bolus over 2-3 minutes. Start Date: 08/28/19 Stop Date: 09/27/19 Status: Orderedlactulose 10 g/15 mL oral syrup 40 gm, 60 mL, Route: PO, Drug form: SYRP, ONCE, Dosing Weight 68.409, kg, Priority: NOW, Start date:08/28/19 21:54:00 CDT, Stop date: 08/28/19 21:54:00 CDT, 0 Notes: (Same as:Chronulac) Start Date: 08/28/19 Stop Date: 08/28/19 Status: Deletedlactulose 10 g/15 mL oral syrup 40 gm, 60 mL, Route: PO, Drug form: SYRP, ONCE, Dosing Weight 68.409, kg, Start date: 08/28/19 21:57:00 CDT, Stop date: 08/28/19 21:57:00 CDT, 0 Notes: (Same as:Chronulac) Start Date: 08/28/19 Stop Date: 08/28/19 Status: Completedlidocaine 1% 5 mL, Route: INTRADERM, Drug Form: INJ, Dosing Weight 68.409, kg, ONCALL, For Midline Catheter insertion., Start date: 08/31/19 11:00:00 CDT, Duration: 30 day, Stop date: 09/30/19 10:59:00 CDT, 0 Notes: Preservative free. (Same as: Xylocaine MPF) Start Date: 08/31/19 Stop Date: 09/30/19 Status: OrderedMaalox Advanced Regular Strength SUSP 30 mL, Route: PO, Drug Form: SUSP, Dosing Weight 68.409, kg, QID, PRN, Start date: 08/28/19 2:15:00 CDT, Duration: 30 day, Stop date: 09/27/19 2:14:00 CDT, Indigestion, heartburn, 0 Notes: (aluminum hydroxide-magnesium hyd-simethicone [phone]/5ml 30 ml ud DAKOTAH) Start Date: 08/28/19 Stop Date: 09/27/19 Status: Orderedmorphine Sulfate 2 mg, 0.5 mL, Route: IVP, Drug form: SOLN, Q4H, Dosing Weight 68.409, kg, PRN Pain Score 4-6, Priority: STAT, Start date: 08/28/19 2:07:00 CDT, Duration: 30 day, Stop date: 09/27/19 2:06:00 CDT, 0 Notes: (Same as:MORPhine Sulfate) Start Date: 08/28/19 Stop Date: 09/27/19 Status: OrderedNS (Bolus) IV 1,000 mL, 1,000 ml/hr, Infuse Over: 1 hr, Route: IV, 1,000, Drug form: INJ, ONCE, Priority: STAT, Dosing Weight 68.409 kg, Start date: 08/28/19 2:07:00 CDT, Stop date: 08/28/19 2:07:00 CDT, 0 Start Date: 08/28/19 Stop Date: 08/28/19 Status: CompletedOmnipaque 350 injectable solution 65 mL, Route: IVP, Drug Form: SOLN, Dosing Weight 68.409, kg, ONCALL, STAT, Start date: 08/29/19 14:53:00 CDT, Duration: 1 doses or times, 0 Notes: (same as:Omnipaque 350).WASTE: F/P - Black; E - Municipal Trash Bin Start Date: 08/29/19 Stop Date: 08/29/19 Status: Completedondansetron 4 mg, 2 mL, Route: IVP, Drug form: INJ, Q6H, Dosing Weight 68.409, kg, PRN Nausea & Vomiting, Start date: 08/28/19 2:15:00 CDT, Duration: 30 day, Stop date: 09/27/19 2:14:00 CDT, 0 Notes: (Same as: Kavithafredinson) MEDICATION WASTE Product Size: 4 mgProduct Wasted: ___ mg Start Date: 08/28/19 Stop Date: 09/27/19 Status: Orderedondansetron 4 mg, 2 mL, Route: IVP, Drug form: INJ, Q6H, Dosing Weight 68.409, kg, Start date: 08/28/19 18:00:00CDT, Duration: 30 day, Stop date: 09/27/19 12:00:00 CDT, 0 Notes: (Same as: Miley) MEDICATION WASTE Product Size: 4 mgProduct Wasted: ___ mg Start Date: 08/28/19 Stop Date: 09/27/19 Status: Orderedondansetron 4 mg, 2 mL, Route: IV, Drug form: INJ, Q6H, Dosing Weight 68.409, kg, PRN Nausea, Start date: 08/28/19 13:01:00 CDT, Stop date: 09/27/19 18:00:00 CDT, 0 Notes: (Same as: Miley) MEDICATION WASTE Product Size: 4 mgProduct Wasted: ___ mg Start Date: 08/28/19 Stop Date: 08/28/19 Status: Discontinuedondansetron 2 mg/mL injectable solution 4 mg = 2 mL, IVP, Q6H, 0 Refill(s) Start Date: 08/30/19 Stop Date: 08/31/19 Status: Discontinuedondansetron 2 mg/mL injectable solution 4 mg = 2 mL, IVP, Q6H, PRN Nausea & Vomiting, 0 Refill(s) Start Date: 08/30/19 Status: Orderedondansetron 4 mg oral tablet, disintegrating 4 mg = 1 tab, PO, Q6H, PRN Nausea / Vomiting, Dissolve tab under tongue, # 10 tab, 0 Refill(s) Start Date: 08/28/19 Stop Date: 08/30/19 Status: Discontinuedpantoprazole 80 mg, Route: IVP, Drug form: INJ, ONCE, Dosing Weight 68.409, kg, for loading dose, Priority: STAT,Start date: 08/28/19 2:07:00 CDT, Stop date: 08/28/19 2:07:00 CDT, 0 Notes: For IV push reconstitute with 10 ml 0.9% sodium chloride and push over 2 minutes. (Same as: Protonix) Start Date: 08/28/19 Stop Date: 08/28/19 Status: Completedpantoprazole 40 mg oral enteric coated tablet 40 mg = 1 tab, PO, Daily, # 30 tab, 0 Refill(s) Start Date: 08/28/19 Stop Date: 08/28/19 Status: Discontinuedpantoprazole additive 80 mg + Sodium Chloride 0.9% IV 100 mL 100 mL, Rate: 10 ml/hr, Infuse over: 10 hr, Route: IVPB, Dosing Weight 68.409 kg, Total Volume: 100,Infuse at 8 mg/hr for 72 hrs for GI bleeding, Start date: 08/31/19 10:08:00 CDT, Duration: 72 hr, Stop date: 09/03/19 10:07:00 CDT, 1.84, m2, 0 Notes: For IV push reconstitute with 10 ml 0.9% sodium chloride and push over 2 minutes. (Same as: Protonix) Start Date: 08/31/19 Stop Date: 09/03/19 Status: Orderedpantoprazole additive 80 mg + Sodium Chloride 0.9% IV 100 mL 100 mL, Rate: 10 ml/hr, Infuse over: 10 hr, Route: IV, Dosing Weight 68.409 kg, Total Volume: 100, Start date: 08/28/19 2:15:00 CDT, Duration: 72 hr, Stop date: 08/31/19 2:14:00 CDT, 1.84, m2, 0 Notes: For IV push reconstitute with 10 ml 0.9% sodium chloride and push over 2 minutes. (Same as: Protonix) Start Date: 08/28/19 Stop Date: 08/31/19 Status: Completedpotassium chloride 10 mEq, 100 mL, Route: IVPB, Drug form: INJ, Q1H, Dosing Weight 68.409, kg, Total Dose = 20 meq, Start date: 08/29/19 9:00:00 CDT, Duration: 2 doses or times, Stop date: 08/29/19 10:00:00 CDT, Peripheral Line, 0 Notes: Infuse at a rate of 10 mEq/hr.(Same as: KCL) Start Date: 08/29/19 Stop Date: 08/29/19 Status: Completedpotassium chloride 10 mEq, 100 mL, Route: IVPB, Drug form: INJ, Q1H, Dosing Weight 68.409, kg, Total Dose = 40 meq, Start date: 08/31/19 9:00:00 CDT, Duration: 4 doses or times, Stop date: 08/31/19 12:00:00 CDT, Peripheral Line, 0 Notes: Infuse at a rate of 10 mEq/hr.(Same as: KCL) Start Date: 08/31/19 Stop Date: 08/31/19 Status: CompletedRobitussin 100 mg/5 mL oral liquid 200 mg, 10 mL, Route: PO, Drug form: SYRP, Q4H, Dosing Weight 68.409, kg, PRN, Start date: 08/28/19 2:15:00 CDT, Duration: 30 day, Stop date: 09/27/19 2:14:00 CDT, as needed for congestion, cough, 0 Notes: (Same as: Robitussin) Start Date: 08/28/19 Stop Date: 09/27/19 Status: OrderedSaline Flush 0.9% 10 mL, Route: IVP, Drug Form: INJ, Dosing Weight 68.409, kg, Q8H, Start date: 08/31/19 16:00:00 CDT,Duration: 30 day, Stop date: 09/30/19 8:00:00 CDT, 0 Notes: (Same as: BD Posiflush) Start Date: 08/31/19 Stop Date: 09/30/19 Status: OrderedSaline Flush 0.9% 10 mL, Route: IVP, Drug Form: INJ, Dosing Weight 68.409, kg, PRN, PRN Line Flush, Start date: 08/31/19 10:08:00 CDT, Duration: 30 day, Stop date: 09/30/19 10:07:00 CDT, 0 Notes: (Same as: BD Posiflush) Start Date: 08/31/19 Stop Date: 09/30/19 Status: OrderedSaline Flush 0.9% 10 ml, Route: IVP, Drug Form: INJ, Dosing Weight 68.409, kg, PRN, PRN Line Flush, Start date: 08/28/19 2:15:00 CDT, Duration: 30 day, Stop date: 09/27/19 2:14:00 CDT, 0 Notes: Same as: BD Posiflush Sterile Start Date: 08/28/19 Stop Date: 09/27/19 Status: OrderedSodium Chloride 0.9% (Bolus) IV 1,000 mL, 1,000 ml/hr, Infuse Over: 1 hr, Route: IV, 1,000, Drug form: INJ, ONCE, Priority: STAT, Dosing Weight 68.409 kg, Start date: 08/28/19 2:01:00 CDT, Stop date: 08/28/19 2:01:00 CDT, 0 Start Date: 08/28/19 Stop Date: 08/28/19 Status: CompletedSodium Chloride 0.9% IV 250 mL, Route: IVPB, Start date: 08/29/19 16:33:00 CDT, Duration: 30 day, Stop date: 09/28/19 16:32:00 CDT, PRN Line Flush, 0 Start Date: 08/29/19 Stop Date: 09/28/19 Status: OrderedSodium Chloride 0.9% IV 1,000 mL 1,000 mL, Rate: 100 ml/hr, Infuse over: 10 hr, Route: IV, Dosing Weight 68.409 kg, Total Volume: 1,000, Start date: 08/28/19 2:15:00 CDT, Duration: 30 day, Stop date: 09/27/19 2:14:00 CDT, 1.84, m2, 0 Start Date: 08/28/19 Stop Date: 08/30/19 Status: Discontinuedtrazodone 50 mg, 1 tab, Route: PO, Drug form: TAB, Bedtime, Dosing Weight 68.409, kg, PRN Insomnia, Start date: 08/28/19 2:15:00 CDT, Duration: 30 day, Stop date: 09/27/19 2:14:00 CDT, 0 Notes: (Same As: Aleksandaryrel) Start Date: 08/28/19 Stop Date: 09/27/19 Status: Orderedursodiol 500 mg oral tablet 500 mg = 1 tab, PO, ONCE, 0 Refill(s) Start Date: 08/27/19 Stop Date: 08/30/19 Status: DiscontinuedZofran 4 mg, 2 mL, Route: IVP, Drug form: INJ, Q6H, Dosing Weight 68.409, kg, PRN Nausea, Start date: 08/28/19 2:15:00 CDT, Duration: 30 day, Stop date: 09/27/19 2:14:00 CDT, 0 Notes: (Same as: Zofran) MEDICATION WASTE Product Size: 4 mgProduct Wasted: ___ mg Start Date: 08/28/19 Stop Date: 09/27/19 Status: Ordered Results Most recent to oldest 1 2 3 [Reference Range]: Procalcitonin Lvl [0.00-0.10 <0.05 ng/mL ng/mL] (08/30/19 4:13 AM) Neutrophils # [1.5-8.1 4.3 K/CMM 4.7 K/CMM 3.6 K/CMM K/CMM] (08/31/19 5:48 AM) (08/30/19 4:13 AM) (08/29/19 4:3 0 AM) Lymphocytes # [1.0-5.5 0.8 K/CMM 0.7 K/CMM 0.9 K/CMM K/CMM] *LOW* *LOW* *LOW* (08/31/19 5:48 AM) (08/30/19 4:13 AM) (08/29/19 4:3 0 AM) Monocytes # [0.0-0.8 K/CMM] 0.7 K/CMM 0.6 K/CMM 0.5 K/CMM (08/31/19 5:48 AM) (08/30/19 4:13 AM) (08/29/19 4:3 0 AM) Eosinophils # [0.0-0.5 0.2 K/CMM 0.1 K/CMM 0.1 K/CMM K/CMM] (08/31/19 5:48 AM) (08/30/19 4:13 AM) (08/29/19 4:3 0 AM) Basophils # [0.0-0.2 K/CMM] 0.0 K/CMM 0.0 K/CMM (08/31/19 5:48 AM) (08/28/19 3:37 AM) Plt Morph [Normal] Normal Normal (08/29/19 4:30 AM) (08/28/19 3:37 AM) eGFR 145 mL/min/1.73m2 1 159 mL/min/1.73m2 2 145 mL/m in/1.73m2 3 *NA* *NA* *NA* (08/31/19 5:48 AM) (08/30/19 4:13 AM) (08/29/19 4:3 0 AM) RBC product Product available 4 (08/28/19 5:41 AM) ABO/Rh A POS *Unknown* (08/28/19 3:37 AM) A/G Ratio [0.7-1.6] 0.3 *LOW* (08/28/19 3:37 AM) Antibody Scrn Negative (08/28/19 3:37 AM) Albumin Lvl [3.5-5.0 g/dL] 1.2 g/dL *LOW* (08/28/19 3:37 AM) Alk Phos [39-136 unit/L] 88 unit/L (08/28/19 3:37 AM) ALT [0-65 unit/L] 7 unit/L (08/28/19 3:37 AM) Amylase Lvl [25-115 unit/L] 17 unit/L *LOW* (08/31/19 5:48 AM) AGAP [10.0-20.0 mEq/L] 14.1 mEq/L 15.5 mEq/L 10.3 mEq/ L (08/31/19 5:48 AM) (08/30/19 4:13 AM) (08/29/19 4:3 0 AM) AST [0-37 unit/L] 14 unit/L (08/28/19 3:37 AM) B/C Ratio [6-25] 12 (08/28/19 3:37 AM) Basophils [0.0-1.0 %] 0.6 % 0.5 % 0.6 % (08/31/19 5:48 AM) (08/30/19 4:13 AM) (08/29/19 4:3 0 AM) BUN [7-22 mg/dL] 1 mg/dL 2 mg/dL 3 mg/dL *LOW* *LOW* *LOW* (08/31/19 5:48 AM) (08/30/19 4:13 AM) (08/29/19 4:3 0 AM) Calcium Lvl [8.5-10.5 mg/dL] 7.4 mg/dL 7.7 mg/dL 8.2 mg/dL *LOW* *LOW* *LOW* (08/31/19 5:48 AM) (08/30/19 4:13 AM) (08/29/19 4:3 0 AM) Chloride Lvl [95-109 mEq/L] 109 mEq/L 109 mEq/L 110 mEq/L (08/31/19 5:48 AM) (08/30/19 4:13 AM) *HI* (08/29/19 4:30 AM ) CO2 [24-32 mEq/L] 25 mEq/L 22 mEq/L 26 mEq/L (08/31/19 5:48 AM) *LOW* (08/29/19 4:30 AM) (08/30/19 4:13 AM) Creatinine Lvl [0.50-1.40 0.50 mg/dL 0.40 mg/dL 0.50 m g/dL mg/dL] (08/31/19 5:48 AM) *LOW* (08/29/19 4:30 AM) (08/30/19 4:13 AM) Eosinophils [0.0-4.0 %] 3.1 % 1.8 % 1.0 % (08/31/19 5:48 AM) (08/30/19 4:13 AM) (08/29/19 4:3 0 AM) Globulin [2.7-4.2 g/dL] 3.9 g/dL (08/28/19 3:37 AM) Glucose Lvl [70-99 mg/dL] 104 mg/dL 57 mg/dL 71 mg/ dL *HI* *LOW* (08/29/19 4:30 AM ) (08/31/19 5:48 AM) (08/30/19 4:13 AM) Hct [42.0-54.0 %] 26.4 % 26.2 % 25.8 % *LOW* *LOW* *LOW* (08/31/19 5:48 AM) (08/30/19 4:13 AM) (08/29/19 4:3 0 AM) Hgb [14.0-18.0 g/dL] 9.1 g/dL 8.5 g/dL 8.8 g/dL *LOW* *LOW* *LOW* (08/31/19 5:48 AM) (08/30/19 4:13 AM) (08/29/19 4:3 0 AM) INR [0.85-1.17] 1.40 *HI* (08/28/19 3:37 AM) Potassium Lvl [3.5-5.1 3.1 mEq/L 3.5 mEq/L 3.3 mEq/L mEq/L] *LOW* (08/30/19 4:13 AM) *LOW* (08/31/19 5:48 AM) (08/29/19 4:30 AM) Lipase Lvl [73-393 unit/L] 104 unit/L (08/31/19 5:48 AM) Lymphocytes [20.0-40.0 %] 13.3 % 11.4 % 17.3 % *LOW* *LOW* *LOW* (08/31/19 5:48 AM) (08/30/19 4:13 AM) (08/29/19 4:3 0 AM) MCH [27.0-31.0 pg] 30.2 pg 29.0 pg 30.3 pg (08/31/19 5:48 AM) (08/30/19 4:13 AM) (08/29/19 4:3 0 AM) MCHC [32.0-36.0 g/dL] 34.3 g/dL 32.4 g/dL 34.1 g/dL (08/31/19 5:48 AM) (08/30/19 4:13 AM) (08/29/19 4:3 0 AM) MCV [80.0-94.0 fL] 88.1 fL 89.6 fL 88.8 fL (08/31/19 5:48 AM) (08/30/19 4:13 AM) (08/29/19 4:3 0 AM) Monocytes [2.0-12.0 %] 11.1 % 9.1 % 10.4 % (08/31/19 5:48 AM) (08/30/19 4:13 AM) (08/29/19 4:3 0 AM) MPV [7.4-10.4 fL] 8.8 fL 8.6 fL 8.6 fL (08/31/19 5:48 AM) (08/30/19 4:13 AM) (08/29/19 4:3 0 AM) Sodium Lvl [135-145 mEq/L] 145 mEq/L 143 mEq/L 143 m Eq/L (08/31/19 5:48 AM) (08/30/19 4:13 AM) (08/29/19 4:3 0 AM) Platelet [133-450 K/CMM] 341 K/CMM 323 K/CMM 316 K/C MM (08/31/19 5:48 AM) (08/30/19 4:13 AM) (08/29/19 4:3 0 AM) Segs [45.0-75.0 %] 71.9 % 77.2 % 70.7 % (08/31/19 5:48 AM) *HI* (08/29/19 4:30 AM) (08/30/19 4:13 AM) Total Protein [6.4-8.4 g/dL] 5.1 g/dL *LOW* (08/28/19 3:37 AM) PT [12.0-14.7 seconds] 17.3 seconds *HI* (08/28/19 3:37 AM) PTT [22.9-35.8 seconds] 45.5 seconds *HI* (08/28/19 3:37 AM) Coronavirus (COVID-19) RIK Not Detected [Not Detected] (08/29/19 6:29 AM) RBC [4.70-6.10 M/CMM] 3.00 M/CMM 2.92 M/CMM 2.91 M/CMM *LOW* *LOW* *LOW* (08/31/19 5:48 AM) (08/30/19 4:13 AM) (08/29/19 4:3 0 AM) RBC Morph [Normal] Normal Normal (08/29/19 4:30 AM) (08/28/19 3:37 AM) RDW [11.5-14.5 %] 14.6 % 15.0 % 14.4 % *HI* *HI* (08/29/19 4:30 AM ) (08/31/19 5:48 AM) (08/30/19 4:13 AM) Bili Total [0.2-1.3 mg/dL] 0.3 mg/dL (08/28/19 3:37 AM) WBC [3.7-10.4 K/CMM] 5.9 K/CMM 6.2 K/CMM 5.2 K/CMM (08/31/19 5:48 AM) (08/30/19 4:13 AM) (08/29/19 4:3 0 AM) 1Result Comment: The eGFR is calculated using the CKD-EPI formula. In most young, healthy individualsthe eGFR will be >90 mL/min/1.73m2. The eGFR declines with age. An eGFR of 60-89 may be normal insome populations, particularly the elderly, for whom the CKD-EPI formula has not been extensively validated. Use of the eGFR is not recommended in the following populations: Individuals with unstable creatinine concentrations, including patients and those with serious co-morbid conditions. Patients with extremes in muscle mass or diet. The data above are obtained from the National Kidney Disease Education Program (NKDEP) which additionally recommends that when the eGFR is used in patients with extremes of body mass index for purposesof drug dosing, the eGFR should be multiplied by the estimated BMI.2Result Comment: The eGFR is calculated using the CKD-EPI formula. In most young, healthy individualsthe eGFR will be >90 mL/min/1.73m2. The eGFR declines with age. An eGFR of 60-89 may be normal insome populations, particularly the elderly, for whom the CKD-EPI formula has not been extensively validated. Use of the eGFR is not recommended in the following populations: Individuals with unstable creatinine concentrations, including patients and those with serious co-morbid conditions. Patients with extremes in muscle mass or diet. The data above are obtained from the National Kidney Disease Education Program (NKDEP) which additionally recommends that when the eGFR is used in patients with extremes of body mass index for purposesof drug dosing, the eGFR should be multiplied by the estimated BMI.3Result Comment: The eGFR is calculated using the CKD-EPI formula. In most young, healthy individualsthe eGFR will be >90 mL/min/1.73m2. The eGFR declines with age. An eGFR of 60-89 may be normal insome populations, particularly the elderly, for whom the CKD-EPI formula has not been extensively validated. Use of the eGFR is not recommended in the following populations: Individuals with unstable creatinine concentrations, including patients and those with serious co-morbid conditions. Patients with extremes in muscle mass or diet. The data above are obtained from the National Kidney Disease Education Program (NKDEP) which additionally recommends that when the eGFR is used in patients with extremes of body mass index for purposesof drug dosing, the eGFR should be multiplied by the estimated BMI.4Result Comment: 08/28/2019 06:02 [id number] Blood available, notified Anne WHITNEY at 08/28/2019 06:02 by WARREN. Immunizations No data available for this section Procedures No data available for this section Social History Social History Type Response Alcohol Never Substance Abuse Use: None. 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 Patient will also require hepatology ev aluation for possible cirrhosis and varices No bleeding since, patient as remained stable Thank you for allowing me to partici tonya in her care and please do not hesitate to contact me with any questions or concerns. Please excuse any typographical errors, documentation prepared using electronic dictation softwareandmay contain unintendedword substitutions. 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 Now with acute onset of GI bleed. Patient is being resuscitated at the [facility], getting his 4th unit of PRBC, no hematemesis reported by mother or EMS Vitally stable Plan: Patient is on PPI gtt Zofran 4 mg q6 h to avoid nausea Check H&H post transfusion Plan for upper endoscopy and colonoscopy in AM Biliary stent needs to be evaluated by t [facility] at [facility] or [place], since all liver labs look unremarkable, would not remove it at the moment. Clear liquid diet NPO midnight Thank you for allowing me to participate in her care and please do not hesitate to contact me with any questions or concerns. Please excuse any typographical errors, documentation prepared using electronic dictation softwareandmay contain unintendedword substitutions. Extracted from: Title: History and Physical Author: Carlos Zarate MD [...] 6 hours. Reviewed results and make additional nolvia mmendations on transfusion. It is like ly the patient will require additionalPRBC transfusions. Bolus 1 L normal saline. Continue withlactated Ringer's IV solution at 100 cc an hour. Gastroen terology consultation is already been ob tained we will follow the recommendations. Begin Protonix 80 mg IV x1 dose. Continue with Protonix IV infusion drip. Control pain with morphine sulfate 2 mg IV every 4 hours PRN. Control nausea with Zofran 4 mg IV every 6 hours PRN. Order CBC complete metabolic panelmagnesium. Resume other home medications as soon as a full list is brought for medi cation reconciliation. Initiate DVT pr ophylaxis GI prophylaxis. Additional recommendations will depend on results of the diagnostics. Acute blood loss anemia(D62) Ordered: Admit/Condition, 08/28/19 2:15:00 CDT, S tatus: Inpatient, IMU, Expected LOS: 3 or Greater Midnights, Carlos Zarate MD, Sarah WADE Review/Approve Yes, Isolation: No Isolation/Standard Precautions , Acute upper GI bleed | Acute blood los s anemia | Hypotension Acute upper GI bleed(K92.2) Ordered: Admit/Condition, 08/28/19 2:15:00 CDT, S tatus: Inpatient, IMU, Expected LOS: 3 or Greater Midnights, Carlos Zarate MD, Sarah WADE Review/Approve Yes, Isolation: No Isolation/Standard Precautions , Acute upper GI bleed | Acute blood los s anemia | Hypotension Hypotension(I95.9) Ordered: Admit/Condition, 08/28/19 2:15:00 CDT, S tatus: Inpatient, IMU, Expected LOS: 3 or Greater Midnights, Carlos Zarate MD, Sarah WADE Review/Approve Yes, Isolation: No Isolation/Standard Precautions , Acute upper GI bleed | Acute blood los s anemia | Hypotension"
--- OUTSIDE RECORDS SUMMARY | 2019-10-13 14:08 | XMS REPORT | Continuity of Care Document ---
:1990 Author Organization [facility] t Address [address] [place] [address] Care Team Providers Name Role Phone Montrell Coughlin Primary Care Physician Kp Zarate Attending Clinician Celia Cuellar MD Attending Clinician MARÍA Attending Clinician Unavailable María WADE Attending Clinician Wing De La Rosa MD Attending Clinician [phone] Anaid Pinon Attending Clinician Fortunato WADE Attending Clinician Jarocho WADE, Get Attending Clinician Ashlyn Childs Attending Clinician CARMELA Attending Clinician Unavailable RAFAELA GILL Attending Clinician Unavailable SATHISH Attending Clinician Unavailable JER CELAYA Attending Clinician Unavailable Kp Zarate Admitting Clinician FORTUNATO Admitting Clinician Unavailable CARMELA Admitting Clinician Unavailable RAFAELA GILL Admitting Clinician [...] Details Category Date Date Treatment Clinician Date GASTRIC Diagnosis Active 2019-10-02 Sd moria VARICES 08-31 15:46:00 l SEVERE GASTRIC 00:00: Nigel PANCREATIC VARICES 00 NECR SEVERE PANCREATIC NECR Active 09/01/2019 [facility] UPPER GI Diagnosis Active 2019-08-28 M emoria BLEED 08-26 00:59:00 l UPPER GI 00:00: Deshawn n BLEED 00 Active 08/27/2019 [facility] ACUTE Diagnosis Active 2019-09-09 Mem oria UPPER GI 08-26 21:51:00 l BLEED, ACUTE 00:00: Nigel ACUTE UPPER GI 00 BLOOD LOSS BLEED, A ACUTE BLOOD LOSS A Active 08/27/2019 [facility] Obstructiv Obstructiv Disease Active [facility] jaundice e jaundice 1-10 Mariah kes - 00:00: Medical 00 [place] GI bleed GI bleed Disease [facility] 00 [place] Leukocytos Leukocytos Disease Active [facility] is is 08-27 [facility] Medical 00 [place] Hypomagnes Hypomagnes Disease Active 2018- [facility] emia emia 07-28 [facility] - 00:[facility]: Medical 00 [place] Pancreatit Pancreatit Disease Active 2018- [facility] is is 07-27 [facility] - 00:[facility]: Medical 00 [place] Peripancre Peripancre Disease Active 2018- [facility] atic fluid atic fluid 6-06 Mariah kes - collection collection 00:00: Sd dical 00 [place] Cholangiti Cholangiti Disease Active [facility] s 4-25 [facility] - 00:00: Medical 00 [place] Illness, Problem 2019-09-01 Mem oria unspecifie 09:02:02 l d Illness, Deshawn n unspecifie d 09/01/2019 [facility] ILLNESS, Diagnosis Active 2019-08-28 emoria UNSPECIFIE 00:59:00 l D ILLNESS, Deshawn n UNSPECIFIE D Active [facility] GASTROINTE Diagnosis Active 2019-09-09 Memoria STINAL 21:51:00 l HEMORRHAGE Deshawn n , GASTROINTE UNSPECIFIE STINAL D HEMORRHAGE , UNSPECIFIE D Active [facility] ACUTE Diagnosis Active 2019-09-09 Mem oria POSTHEMORR 21:51:00 l HAGIC ACUTE Nigel ANEMIA POSTHEMORR HAGIC ANEMIA Active [facility] HYPOTENSIO Diagnosis Active 2019-09-09 Memoria N, 21:51:00 l UNSPECIFIE Deshawn n D HYPOTENSIO N, UNSPECIFIE D Active [facility] Allergies, Adverse Reactions, Alerts Allergy Allergy Status Severity Reaction(s) Onset Inactive Treating Comm ents Source Name Type Date Date Clinician Morphine Drug Active Nausea [facility] Allergy Vomiting 1-10 [facility] 00:[facility]: Medical 00 [place] tazobact DA [facility] am 09-11 Clear 00:00: Garrett 00 [facility] piperaci DA Active [facility] llin 09-11 Clear 00:00: Garrett [facility] vancomyc DA Active [facility] in 09-11 Clear 00:00: Garrett [facility] MEREPENE DA Active [facility] M 09-11 Clear 00:00: Garrett [facility] Vancomyc Propensi Active Rash Rash with [facility] ty to 08-27 lip [facility] - Analogue adverse 00:00: swelling Medic al s reaction 00 Center [facility] Piperaci Drug Active Swelling, Pt [facility] Allergy Rash 6- received [facility] obactam 00:[facility] [place] n, and subsequen tly developed a rash with lip swelling. A few days prior to this, pt developed a rash to meropenem . Meropene Drug Active Hives, [facility] m-0.9% Allergy Itching 07-12 [facility] - Sodium 00:00: Medical Chloride 00 [place] [facility] vancomyc Active Memori a in in l [place] piperaci piperaci Active Memori a llin-sam llin-sam l obactam obactam [place] meropene meropene Active Memori a m chente Manning Social History Social Habit Start Date Stop Date Quantity Comments Source Sex Assigned At [facility] Social History 2019-08-28 2019-08-28 Joe marmolejo 06:50:55 06:50:55 Smoking Status Start Date Stop Date Source Never smoker [facility] Medications Ordered Filled Start Stop Current Ordering Indication Dosage Frequency Signature Comments Components Source Medication Medication Date Date Medication? Clinician (SIG) Name Name Saline Yes Notes: Memoria Flush 0.9% 7-26 (Same as: l 21:00: BD Nigel 00 Posiflush) Saline Yes Notes: Memoria Flush 0.9% 7-26 (Same as: l 21:00: BD Nigel 00 Posiflush) Lidocaine 2019- Yes Notes: Memori a Hydrochlori 7-26 Preservati l de 10 MG/ML 16:00: ve free. He rmann Injectable 00 (Same as: Solution Xylocaine MPF) Lidocaine Yes Notes: Memori a Hydrochlori 7-26 Preservati l de 10 MG/ML 16:00: ve free. He rmann Injectable 00 (Same as: Solution Xylocaine MPF) Saline Yes Notes: Memoria Flush 0.9% 7-26 (Same as: l 15:08: BD [place] 00 Posiflush) pantoprazol Yes Notes: For Memoria e additive 7-26 IV push l 80 mg + 15:08: reconstitu Herm natalie Sodium 00 te with 10 Chloride ml 0.9% 0.9% IV 100 sodium mL chloride and push over 2 minutes. (Same as: Protonix) Saline Yes Notes: Memoria Flush 0.9% 7-26 (Same as: l 15:08: BD [place] 00 Posiflush) pantoprazol Yes Notes: For Memoria e additive 7-26 IV push l 80 mg + 15:08: reconstitu Herm natalie Sodium 00 te with 10 Chloride ml 0.9% 0.9% IV 100 sodium mL chloride and push over 2 minutes. (Same as: Protonix) Potassium No Notes: Memori a Chloride 7-26 Infuse at l 14:00: a rate of [place] 00 10 mEq/hr. (Same as: KCL) Potassium No Notes: Memori a Chloride 7-26 Infuse at l 14:00: a rate of Nigel 00 10 mEq/hr. (Same as: KCL) ondansetron No 4 mg = 2 Me moria 2 mg/mL 7-25 mL, IVP, l injectable 20:16: Q6H, 0 Sri nn solution 00 Refill(s) ondansetron 2020-0 No 4 mg = 2 Me moria 2 mg/mL 7-25 mL, IVP, l injectable 20:16: Q6H, 0 Sri nn solution 00 Refill(s) D5NS 1,000 2020-0 Yes 1,000 mL, Me moria mL 7-25 Rate: 100 l 13:29: ml/hr, [place] 00 Infuse over: 10 hr, Route: IV, Dosing Weight 68.409 kg, Total Volume: 1,000, Start date: 08/30/19 8:29:00 CDT, Duration: 30 day, Stop date: 09/29/19 8:28:00 CDT, 1.84, m2, 0 D5NS 1,000 2020-0 Yes 1,000 mL, Me moria mL 7-25 Rate: 100 l 13:29: ml/hr, Nigel 00 Infuse over: 10 hr, Route: IV, Dosing Weight 68.409 kg, Total Volume: 1,000, Start date: 08/30/19 8:29:00 CDT, Duration: 30 day, Stop date: 09/29/19 8:28:00 CDT, 1.84, m2, 0 Sodium 2020-0 Yes 250 mL, Memoria Chloride 7-24 Route: l 0.9% IV 21:33: IVPB, [place] Start date: 08/29/19 16:33:00 CDT, Duration: 30 day, Stop date: 09/28/19 16:32:00 CDT, PRN Line Flush, 0 Sodium 2020-0 Yes 250 mL, Memoria Chloride 7-24 Route: l 0.9% IV 21:33: IVPB, Nigel Start date: 08/29/19 16:33:00 CDT, Duration: 30 day, Stop date: 09/28/19 16:32:00 CDT, PRN Line Flush, 0 Dextrose 2020-0 Yes 12.5 gm, Memor ia 50% Syringe 7-24 25 mL, l (D50W) 21:11: Route: [place] 00 IVP, Drug Form: INJ, Dosing Weight 68.409, kg, PRN, PRN Blood Glucose Results, Start date: 08/29/19 16:11:00 CDT, Duration: 30 day, Stop date: 09/28/19 16:10:00 CDT, 0 Glucagon 2020-0 Yes 1 mg, Memoria 7-24 Route: IM, l 21:11: Drug form: [place] 00 PDR/INJ, PRN, Dosing Weight 68.409, kg, PRN Blood Glucose Results, Start date: 08/29/19 16:11:00 CDT, Duration: 30 day, Stop date: 09/28/19 16:10:00 CDT, 0 Dextrose 2020-0 Yes 12.5 gm, Memor ia 50% Syringe 7-24 25 mL, l (D50W) 21:11: Route: [place] IVP, Drug Form: INJ, Dosing Weight 68.409, kg, PRN, PRN Blood Glucose Results, Start date: 08/29/19 16:11:00 CDT, Duration: 30 day, Stop date: 09/28/19 16:10:00 CDT, 0 Glucagon 2020-0 Yes 1 mg, Memoria 7-24 Route: IM, l 21:11: Drug form: Nigel 00 PDR/INJ, PRN, Dosing Weight 68.409, kg, PRN Blood Glucose Results, Start date: 08/29/19 16:11:00 CDT, Duration: 30 day, Stop date: 09/28/19 16:10:00 CDT, 0 Omnipaque 2020-0 No Notes: Memori a 350 7-24 (same l injectable 19:53: as:Omnipaq H ermann solution 00 ue 350). WASTE: F/P - Black; E - Municipal Trash Bin Omnipaque 2020-0 No Notes: Memori a 350 7-24 (same l injectable 19:53: as:Omnipaq H ermann solution 00 ue 350). WASTE: F/P - Black; E - Municipal Trash Bin Potassium 2020-0 No Notes: Memori a Chloride 7-24 Infuse at l 14:00: a rate of [place] 00 10 mEq/hr. (Same as: KCL) Potassium 2020-0 No Notes: Memori a Chloride 7-24 Infuse at l 14:00: a rate of Nigel 00 10 mEq/hr. (Same as: KCL) Lactulose 2020-0 No Notes: Memori a 667 MG/ML 7-24 (Same l Oral 02:57: as:Chronul [place] Solution 00 ac) Lactulose 2020-0 No Notes: Memori a 667 MG/ML 7-24 (Same l Oral 02:57: as:Chronul [place] Solution ) Lactulose 2020-0 No Notes: Memori a 667 MG/ML 7-24 (Same l Oral 02:54: as:Chronul [place] Solution ac) Lactulose 2020-0 No Notes: Memori a 667 MG/ML 7-24 (Same l Oral 02:54: as:Chronul Nigel Solution ac) ondansetron 2020-0 Yes Notes: Guy zoila 7-23 (Same as: l 23:00: Zofran) Nigel 00 MEDICATION WASTE Product Size: 4 mg Product Wasted: ___ mg ondansetron 2020-0 Yes Notes: Guy zoila 7-23 (Same as: l 23:00: Zofran) Nigel 00 MEDICATION WASTE Product Size: 4 mg Product Wasted: ___ mg Golytely 2020-0 No Notes: Memoria 7-23 (polyethyl l 19:31: avi glycol Nigel 00 electrolyt e solution 4 Liter bottle) (Same as: Golytely, Colyte) Golytely 2020-0 No Notes: Memoria 7-23 (polyethyl l 19:31: avi glycol Nigel 00 electrolyt e solution 4 Liter bottle) (Same as: Golytely, Colyte) Ondansetron 2020-0 No Notes: Guy zoila 7-23 (Same as: l 18:01: Zofran) Nigel 00 MEDICATION WASTE Product Size: 4 mg Product Wasted: ___ mg Ondansetron 2020-0 No Notes: Guy zoila 7-23 (Same as: l 18:01: Zofran) Nigel 00 MEDICATION WASTE Product Size: 4 mg Product Wasted: ___ mg Acetaminoph 2020-0 No 2 tab, PO, Memoria en 325 MG / 7-23 Q4H, PRN l Hydrocodone 07:35: for pain, H ermann Bitartrate 00 # 84 tab, 5 MG Oral 0 Tablet Refill(s) Ondansetron 2020-0 No 4 mg = 1 Me moria 4 MG 7-23 tab, PO, l Disintegrat 07:35: Q6H, PRN He rmann ing Tablet 00 Nausea / Vomiting, Dissolve tab under tongue, # 10 tab, 0 Refill(s) pantoprazol 2020-0 No 40 mg = 1 M emoria e 40 mg 7-23 tab, PO, l oral 07:35: Daily, # Nigel enteric 00 30 tab, 0 coated Refill(s) tablet Acetaminoph 2020-0 No 2 tab, PO, Memoria en 325 MG / 7-23 Q4H, PRN l Hydrocodone 07:35: for pain, H ermann Bitartrate 00 # 84 tab, 5 MG Oral 0 Tablet Refill(s) Ondansetron 2020-0 No 4 mg = 1 Me moria 4 MG 7-23 tab, PO, l Disintegrat 07:35: Q6H, PRN He rmann ing Tablet 00 Nausea / Vomiting, Dissolve tab under tongue, # 10 tab, 0 Refill(s) pantoprazol 2020-0 No 40 mg = 1 M emoria e 40 mg 7-23 tab, PO, l oral 07:35: Daily, # [place] enteric 00 30 tab, 0 coated Refill(s) tablet Ondansetron 2020-0 Yes Notes: Guy zoila - (Same as: l 07:15: Zofran) [place] 00 MEDICATION WASTE Product Size: 4 mg Product Wasted: ___ mg pantoprazol 2020-0 No Notes: For Memoria e additive - IV push l 80 mg + 07:15: reconstitu Herm natalie Sodium 00 te with 10 Chloride ml 0.9% 0.9% IV 100 sodium mL chloride and push over 2 minutes. (Same as: Protonix) Trazodone 2020-0 Yes Notes: Memori a 7-23 (Same As: l 07:15: Desyrel) Nigel 00 Maalox 2020-0 Yes Notes: Memoria Advanced 7-23 (aluminum l Regular 07:15: hydroxide- Herm natalie Strength 00 magnesium SUSP hyd-simeth icone 200-200-20 mg/5ml 30 ml ud DAKOTAH) Albuterol 2020-0 Yes Notes: Memori a 0.833 MG/ML - (Same as: l / 07:15: Duoneb) Nigel Ipratropium 00 Goldonna 0.167 MG/ML Inhalant Solution [DuoNeb] Docusate 2020-0 Yes Notes: Memoria Sodium 100 7-23 (Same as: l MG Oral 07:15: Colace) Nigel Capsule 00 (Do Not [Colace] Crush) Robitussin 2019-0 Yes Notes: Memor ia 100 mg/5 mL 7-23 (Same as: l oral liquid 07:15: Robitussin [place] 00 ) Zofran 2020-0 Yes Notes: Memoria 7-23 (Same as: l 07:15: Zofran) Nigel 00 MEDICATION WASTE Product Size: 4 mg Product Wasted: ___ mg Hydralazine 2020- Yes Notes: Guy zoila 7-23 (Same as: l 07:15: Apresoline Nigel ) Push over 5 minutes Sodium 2019-0 No 1,000 mL, Memori a Chloride - Rate: 100 l 0.9% IV 07:15: ml/hr, Nigel 1,000 mL 00 Infuse over: 10 hr, Route: IV, Dosing Weight 68.409 kg, Total Volume: 1,000, Start date: 08/28/19 2:15:00 CDT, Duration: 30 day, Stop date: 09/27/19 2:14:00 CDT, 1.84, m2, 0 Saline 2019-0 Yes Notes: Memoria Flush 0.9% -23 Same as: l 07:15: BD [place] 00 Posiflush Sterile Ondansetron 2019-0 Yes Notes: Guy zoila 7-23 (Same as: l 07:15: Zofran) [place] 00 MEDICATION WASTE Product Size: 4 mg Product Wasted: ___ mg pantoprazol 2019-0 No Notes: For Memoria e additive -23 IV push l 80 mg + 07:15: reconstitu Herm natalie Sodium 00 te with 10 Chloride ml 0.9% 0.9% IV 100 sodium mL chloride and push over 2 minutes. (Same as: Protonix) Trazodone 2019-0 Yes Notes: Memori a 7-23 (Same As: l 07:15: Desyrel) [place] 00 Maalox 2020-0 Yes Notes: Memoria Advanced 7-23 (aluminum l Regular 07:15: hydroxide- Herm natalie Strength 00 magnesium SUSP hyd-simeth icone 200-200-20 mg/5ml 30 ml ud DAKOTAH) Albuterol 2020-0 Yes Notes: Memori a 0.833 MG/ML - (Same as: l / 07:15: Duoneb) Nigel Ipratropium 00 Goldonna 0.167 MG/ML Inhalant Solution [DuoNeb] Docusate 2020-0 Yes Notes: Memoria Sodium 100 - (Same as: l MG Oral 07:15: Colace) [place] Capsule 00 (Do Not [Colace] Crush) Robitussin 2020-0 Yes Notes: Memor ia 100 mg/5 mL - (Same as: l oral liquid 07:15: Robitussin Nigel 00 ) Zofran 2019-0 Yes Notes: Memoria 7- (Same as: l 07:15: Zofran) Nigel 00 MEDICATION WASTE Product Size: 4 mg Product Wasted: ___ mg Hydralazine 2019-0 Yes Notes: Guy zoila - (Same as: l 07:15: Apresoline Nigel ) Push over 5 minutes Sodium 2020-0 No 1,000 mL, Memori a Chloride 08-27 Rate: 100 l 0.9% IV 07:15: ml/hr, [place] 1,000 mL 00 Infuse over: 10 hr, Route: IV, Dosing Weight 68.409 kg, Total Volume: 1,000, Start date: 08/28/19 2:15:00 CDT, Duration: 30 day, Stop date: 09/27/19 2:14:00 CDT, 1.84, m2, 0 Saline 2020-0 Yes Notes: Memoria Flush 0.9% - Same as: l 07:15: BD [place] 00 Posiflush Sterile pantoprazol 2020-0 No Notes: For Memoria e - IV push l 07:07: reconstitu Nigel te with 10 ml 0.9% sodium chloride and push over 2 minutes. (Same as: Protonix) Morphine 2020-0 Yes Notes: Memoria 7-23 (Same l 07:07: as:MORPhin [place] 00 e Sulfate) Labetalol 2020-0 Yes Notes: Memori a 7-23 (Same as: l 07:07: Normodyne, [place] 00 Trandate) Push over 2 minutes Give bolus over 2-3 minutes. NS (Bolus) 2020-0 No 1,000 mL, Me moria IV 7-23 1,000 l 07:07: ml/hr, [place] 00 Infuse Over: 1 hr, Route: IV, 1,000, Drug form: INJ, ONCE, Priority: STAT, Dosing Weight 68.409 kg, Start date: 08/28/19 2:07:00 CDT, Stop date: 08/28/19 2:07:00 CDT, 0 pantoprazol 2020-0 No Notes: For Memoria e 7-23 IV push l 07:07: reconstitu Nigel 00 te with 10 ml 0.9% sodium chloride and push over 2 minutes. (Same as: Protonix) Morphine 2020-0 Yes Notes: Memoria 7-23 (Same l 07:07: as:MORPhin [place] 00 e Sulfate) Labetalol 2020-0 Yes Notes: Memori a 7-23 (Same as: l 07:07: Normodyne, [place] 00 Trandate) Push over 2 minutes Give bolus over 2-3 minutes. NS (Bolus) 2020-0 No 1,000 mL, Me moria IV 7-23 1,000 l 07:07: ml/hr, Nigel 00 Infuse Over: 1 hr, Route: IV, 1,000, Drug form: INJ, ONCE, Priority: STAT, Dosing Weight 68.409 kg, Start date: 08/28/19 2:07:00 CDT, Stop date: 08/28/19 2:07:00 CDT, 0 Sodium 2020-0 No 1,000 mL, Memori a Chloride 7-23 1,000 l 0.9% 07:01: ml/hr, [place] (Bolus) IV 00 Infuse Over: 1 hr, Route: IV, 1,000, Drug form: INJ, ONCE, Priority: STAT, Dosing Weight 68.409 kg, Start date: 08/28/19 2:01:00 CDT, Stop date: 08/28/19 2:01:00 CDT, 0 Sodium 2020-0 No 1,000 mL, Memori a Chloride 7-23 1,000 l 0.9% 07:01: ml/hr, [place] (Bolus) IV 00 Infuse Over: 1 hr, Route: IV, 1,000, Drug form: INJ, ONCE, Priority: STAT, Dosing Weight 68.409 kg, Start date: 08/28/19 2:01:00 CDT, Stop date: 08/28/19 2:01:00 CDT, 0 ursodiol 2020-0 No 500 mg = 1 Mem oria 500 mg oral 7-22 tab, PO, l tablet 17:00: ONCE, 0 Nigel 00 Refill(s) ursodiol 2020-0 No 500 mg = 1 Mem oria 500 mg oral 7-22 tab, PO, l tablet 17:00: ONCE, 0 [place] 00 Refill(s) Esomeprazol 2020-0 No 40 mg, PO, Memoria e 7-22 Daily, 0 l 14:06: Refill(s) [place] 00 ferrous 2020-0 No 325 mg = 1 Guy zoila sulfate 325 7-22 tab, PO, l MG Oral 14:06: BID, 0 Nigel Tablet 00 Refill(s) Esomeprazol 2020-0 No 40 mg, PO, Memoria e 7-22 Daily, 0 l 14:06: Refill(s) Nigel 00 ferrous 2020-0 No 325 mg = 1 Guy zoila sulfate 325 7-22 tab, PO, l MG Oral 14:06: BID, 0 [place] Tablet 00 Refill(s) HYDROcodone 2020- No 1{tbl} Take [address] -acetaminop 02-18 tablet by Mariah montez (NORCO 00:00: 23:59 mouth Medic al 10-325) 00 :00 every 8 Center 10-325 mg (eight) per tablet hours as needed for Pain for up to 7 days. Max Daily Amount: 3 tablets metroNIDAZO 2019-2019- No 500mg Take [address] [facility] (FLAGYL) 02-18 tablet [facility] - 500 MG 00:00: 23:59 (500 mg Medical tablet 00 :00 total) by Center mouth every 8 (eight) hours for 3 days. ciprofloxac 2019- 2020- No 500mg Take [address] in HCl 02-18 tablet [facility] - (CIPRO) 500 00:00: 23:59 (500 mg Me dical MG tablet 00 :00 total) by Cente r mouth every 12 (twelve) hours for 3 days. HYDROcodone 2020- No 1{tbl} Take [address] -acetaminop 1-14 -14 tablet by Mariah montez (NORCO 00:00: 00:00 mouth Medic al 5-325) 00 :00 every 8 Center 5-325 mg (eight) per tablet hours as needed for Pain for up to 7 doses. Max Daily Amount: 3 tablets ondansetron 2018-02 2020- No 4mg Take [address] [facility] (ZOFRAN) 4 2-03 03-14 by mouth Luke s - MG tablet 00:00: 00:00 every 12 Med ical 00 :00 (twelve) Center hours. ferrous 2018-02 Yes 1{tbl} Q.5D Take [address] [facility] sulfate 325 2-15 tablet by Marilyn es - (65 FE) MG 00:00: mouth 2 Medi dk tablet 00 (two) Center times daily. pantoprazol 2018-02 Yes 40mg QD Take [address] e 0-23 by mouth [facility] - (PROTONIX) 00:00: daily. Medic al 40 MG 00 Center tablet HYDROcodone 2020- No 1{tbl} Take [address] -acetaminop 7-03 03- tablet by Mariah montez (NORCO 00:00: 00:00 mouth Medic al 5-325) 00 :00 every 8 Center 5-325 mg (eight) per tablet hours as needed for up to 20 doses. Max Daily Amount: 3 tablets ondansetron Yes 1{tbl} Take [address] (ZOFRAN-ODT 6-27 tablet by Marilyn es - ) 4 MG 00:00: mouth Medical disintegrat 00 every 8 Cente r ing tablet (eight) hours as needed. HYDROcodone 2020- No 1{tbl} Take [address] -acetaminop 6-27 -14 tablet by Mariah montez (NORCO 00:00: 00:00 mouth 3 Med ical 10-325) 00 :00 (three) Center 10-325 mg times per tablet daily as needed. Max Daily Amount: 3 tablets docusate Yes 100mg Take [address] [facility] sodium 6-14 mg by Mariahkes - (COLACE) 00:00: mouth as Medic al 100 MG 00 needed. Center capsule nystatin 2020- No Q.5D Apply [facility] St (MYCOSTATIN 5-12 05-11 topically Mariah kes - ) 100,000 00:00: 23:59 2 (two) Medi dk unit/gram 00 :00 times Center powder daily. Vital Signs Vital Name Observation Time Observation Value Comments Source Heart Rate 2019-09-01 04:14:00 Memorial Nigel Respitory Rate 2019-09-01 04:14:00 Memori al [place] Systolic (mm Hg) 2019-09-01 04:14:00 Guy rial Nigel Diastolic (mm Hg) 2019-09-01 04:14:00 Mem orial Nig[place] Respitory Rate 2019-09-01 01:19:00 Memori al [place] Temperature Oral (F) 2019-09-01 00:33:00 99.1 F Memorial Nigel Heart Rate 2019-09-01 00:33:00 [facility] [place] Respitory Rate 2019-09-01 00:33:00 Memori al [place] Systolic (mm Hg) 2019-09-01 00:33:00 Guy rial Nigel Diastolic (mm Hg) 2019-09-01 00:33:00 Mem orial Nigel Temperature Oral (F) 2019-08-31 21:00:00 98.3 F Memorial Nigel Heart Rate 2019-08-31 21:00:00 Memorial Nigel Systolic (mm Hg) 2019-08-31 21:00:00 Guy rial [place] Diastolic (mm Hg) 2019-08-31 21:00:00 Mem orial Nigel Temperature Oral (F) 2019-08-31 17:00:00 98.4 [facility] Height 2019-08-28 06:22:00 177.8 cm [facility] Weight 2019-08-28 06:22:00 [facility] BMI Calculated 2019-08-28 06:22:00 Memori al [place] Respiratory rate 2019-02-18 14:11:00 18 /min [facility] Oxygen saturation in 2019-02-18 14:11:00 97 /min [facility] - Arterial blood by Medical Ce nter Pulse oximetry Systolic blood 2019-02-18 12:03:00 98 mm[Hg] [facility] Diastolic blood 2019-02-18 12:03:00 63 mm[Hg] [facility] pressure [facility] Heart rate 2019-02-18 12:03:00 78 /min [facility] Body temperature 2019-02-18 12:03:00 36 [place] [facility] Body weight Measured 2019-02-15 07:00:00 70.852 kg [facility] BMI 2019-02-15 07:00:00 22.41 kg/m2 [facility] Body height 2019-02-14 07:00:00 177.8 cm [facility] Procedures Procedure Date / Time Performed Performing Clinician Sour e SARS-COV2/RT-PCR ([facility] & 2019-08-26 19:33:00 [facility] REF LABS) [facility] RHYTHM STRIP - SCAN 2019-02-26 16:18:13 Provider, [facility] TRANSFUSION SERVICE 2019-02-19 18:00:43 Provider, [facility] - REPORT - SCAN [facility] RHYTHM STRIP - SCAN 2019-02-19 11:21:51 Provider, [facility] PREPARE LEUKO-REDUCED RBC 2019-02-18 23:54:00 Jacob Pinon [facility] TRANSFUSION SERVICE 2019-02-18 18:00:29 Provider, [facility] REPORT - [facility] COMPREHENSIVE METABOLIC 2019-02-18 13:36:00 Brian Franklin [facility] PANEL [facility] FERRITIN 2019-02-18 13:36:00 Brian Franklin [facility] HEMOGLOBIN AND HEMATOCRIT 2019-02-18 12:16:00 Jacob Pinon [facility] TRANSFUSE LEUKO-REDUCED 2019-02-17 14:53:01 Jacob Pinon [facility] RED BLOOD CELLS [facility] TYPE AND SCREEN, 2019-02-17 09:56:00 Jacob Pinon [facility] AUTOMATED [facility] HEMOGLOBIN AND HEMATOCRIT 2019-02-17 06:19:00 Carlos Fan [facility] CBC (HEMOGRAM ONLY) 2019-02-17 04:18:00 Jacob Pinon [facility] BASIC METABOLIC PANEL (7) 2019-02-17 04:18:00 Jacob Pinon [facility] VITAMIN B12 AND FOLATE 2019-02-17 04:18:00 Jacob Pinon [facility] TSH/FREE T4 IF INDICATED 2019-02-17 04:18:00 Jacob Pinon [facility] IRON, TIBC, % SAT. 2019-02-17 04:18:00 Jacob Pinon [facility] (WITHOUT FERRITIN) [facility] Cente r LIPASE 2019-02-17 04:18:00 BrysonRicardo [facility] HEMOGLOBIN AND HEMATOCRIT 2019-02-16 10:19:00 Jacob Pinon [facility] HEPATIC FUNCTION PANEL 2019-02-16 04:23:00 Fortunato [facility] PT/APTT 2019-02-16 04:23:00 Fortunato [facility] PROTHROMBIN TIME/INR 2019-02-16 04:23:00 [facility] CBC (HEMOGRAM ONLY) 2019-02-16 04:23:00 Jacob Pinon [facility] COMPREHENSIVE METABOLIC 2019-02-16 04:23:00 Jacob Pinon [facility] LIPASE 2019-02-16 04:23:00 Ricardo Rainey [facility] REPORT OF PROCEDURE - 2019-02-15 12:51:41 Uriah Childs [facility] ENDOSCOPY [facility] [place] ERCP 2019-02-15 12:32:00 Uriah Childs [facility] CYTOLOGY REQUEST 2019-02-15 12:26:16 Uriah Childs [facility] CYTOLOGY 2019-02-15 12:26:00 [facility] & AUTO 2019-02-15 11:55:00 [facility] 11:00:00 Uriah Childs [facility] ERCP,BALLOON SWEEPING 2019-02-15 11:00:00 Naz [facility]ah [facility] ERCP,BILIARY STENT 2019-02-15 11:00:00 Uriah Childs [facility] HEPATIC FUNCTION PANEL 2019-02-15 06:00:00 Fortunato cece [facility] BASIC METABOLIC PANEL (7) 2019-02-15 06:00:00 Melissa Farmer [facility] PT/APTT 2019-02-15 06:00:00 Fortunato cece [facility] PROTHROMBIN TIME/INR 2019-02-15 06:00:00 Fortunato cece [facility] CBC W/PLT COUNT & AUTO 2019-02-14 06:24:00 Melissa Farmer [facility] (CELLAVISION MANUAL DIFF) 2019-02-14 06:24:00 Melissa Farmer [facility] HEPATIC FUNCTION PANEL 2019-02-14 04:34:00 Fortunato cece [facility] BASIC METABOLIC PANEL (7) 2019-02-14 04:34:00 Melissa Farmer [facility] PT/APTT 2019-02-14 04:34:00 Fortunato cece [facility] PROTHROMBIN TIME/INR 2019-02-14 04:34:00 Fortunato, cece [facility] Encounters Start End Encounter Admission Attending Care Care Encounter Source Date/Time Date/Time Type Type Clinicians Facility Department ID 2019-09-02 Inpatient [facility] [id number] [facility] H 05:03:00 2019-08-28 Inpatient [facility] [id number] [facility] W 00:57:00 2019-08-28 2019-08-28 Outpatient [facility] [id number] 00:57:00 00:57:00 Carlos Larson 2019-08-28 2019-08-28 Outpatient [facility] [id number] 00:57:00 00:57:00 Carlos Larson Results Test Description Test Time Test Comments Results Result Comments Source CHEM PANEL 2019-08-31 17 [facility] 10:[facility]00 CHEM PANEL 2019-08-31 104 [facility] 10:48:00 CHEM PANEL 2019-08-31 1 [facility] 10:48:00 CHEM PANEL 2019-08-31 0.50 [facility] 10:48:00 CHEM PANEL 2019-08-31 145 [facility] 10:48:00 CHEM PANEL 2019-08-31 3.1 [facility] 10:48:00 CHEM PANEL 2019-08-31 109 [facility] 10:48:00 CHEM PANEL 2019-08-31 25 [facility] 10:48:00 CHEM PANEL 2019-08-31 14.1 [facility] 10:48:00 CHEM PANEL 2019-08-31 7.4 [facility] 10:48:00 CHEM PANEL 2019-08-31 145 [facility] 10:48:00 CHEM PANEL 2019-08-31 104 [facility] 10:48:00 HEMATOLOGY 2019-08-31 5.9 [facility] 10:48:00 HEMATOLOGY 2019-08-31 3.00 [facility] 10:48:00 HEMATOLOGY 2019-08-31 9.1 [facility] 10:48:00 HEMATOLOGY 2019-08-31 26.4 [facility] 10:48:00 HEMATOLOGY 2019-08-31 88.1 [facility] 10:48:00 HEMATOLOGY 2019-08-31 10:48:00 Test Item Value Reference Range Interpretation Comme nts MCH (test code = MCH) 30.2 pg 27.0-31.0 [facility] DauxivsKNHKLAGZQA8098-15-88 10:48:0034.3[facility]annHEMATOLOGY 2019-08-31 10:48:0014.6[facility] CbommbbCSGLHBYRMF9341-01-57 10:48:23546Xqeyeiiz KzzcgkjTSRIRQCICD5838-29-63 10:48:008.8[facility] WewxhdvVEDEQXLIDK9652-91-97 10:48:0071.9[facility] MasjcmuFIBZSPWQUG8593-56-38 10:48:0013.3[facility] PILEUNTZPA9795-89-32 10:48:0011.1[facility] ViodsviSLYNNGVXUX7304-60-12 10:48:00 3.1[facility] FzywywnHKLZQZZLXW6253-98-71 10:48:000.6[facility] HermannHEMATOLOGY 2019-08-31 10:48:004.3[facility] QdyiswiOSPNQBMEPJ9544-53-84 10:48:000.8[facility] EayawjzSVBRXGOBHG7574-54-11 10:48:000.7[facility] DahbbtrIRVRFETZHJ1382-16-50 10:48:000.2[facility] BpovtxsLBZLJFJPHR6774-52-11 10:48:000.0[facility] HermannCHEM FXBAP0013-15-36 10:48:0017[facility] HermannCHEM SEIQX3198-83-11 10:48:61453 [facility]annCHEM HQYGM1994-67-75 10:48:001[facility] HermannCHEM PANEL 2019-08-31 10:48:000.50[facility] HermannCHEM JKRQD6619-22-92 10:48:97152Erepfbio HermannCHEM XKQFL0074-36-01 10:48:003.1[facility] HermannCHEM WRMRF1177-51-82 10:48:50798Xgotycdt HermannCHEM DYTWK6320-35-55 10:48:0025[facility] HermannCHEM LMNQJ5841-92-58 10:48:0014.1[facility] HermannCHEM FPEFS1024-58-33 10:48:007.4 [facility] HermannCHEM RWXTG9512-79-27 10:48:33233Xsisvvoq HermannCHEM PANEL 2019-08-31 10:48:18761Ugwwwzrt MzxiirmLXAHHOPECZ8296-41-20 10:48:005.9[facility] YflzkiyYLXHNAMJCF9377-82-29 10:48:003.00[facility] GldvucyJLZLUTODCX4529-66-83 10:48:009.1[facility] FaptpwqYNINJVQVTN2422-95-94 10:48:0026.4[facility] OBKGIOWXTD5329-50-21 10:48:0088.1[facility] ReqxbwoHEUTSGJAKK2682-60-43 10:48:00 Test Item Value Reference Range Interpretation Comments MCH (test code = MCH) 30.2 pg 27.0-31.0 [facility] OmvnhshKRFTLEUYPK6854-17-75 10:48:0034.3[facility] HermannHEMATOLOGY 2019-08-31 10:48:0014.6[facility] DdputktNWMVXZHOPI4281-69-04 10:48:75278Efuuvpjc SntdybbNCRPRILMEX1422-34-35 10:48:008.8[facility] QculozlLJLNSCYOOC1606-55-33 10:48:0071.9[facility] BbqcydkKULNRFIJFR3138-98-16 10:48:0013.3[facility] WRPXCSFHYJ4230-06-30 10:48:0011.1[facility] BjvfwwhRTPLTEXKQN4662-12-05 10:48:00 3.1[facility] DwrfeorWMTTYPUSFR7608-95-91 10:48:000.6[facility] HermannHEMATOLOGY 2019-08-31 10:48:004.3[facility] XwolxvjVRMXQQLJDF0537-31-95 10:48:000.8[facility] MvlgsrjFOXCUSXXFC4356-92-58 10:48:000.7[facility] TwmvhypUQLXBEHEZS0282-82-66 10:48:000.2[facility] XxyukedECOGXGNTWN3682-14-79 10:48:000.0[facility] HermannCHEM ZIWJO5965-02-35 09:13:0057[facility] HermannCHEM JFTVA2705-40-29 09:13:002[facility] HermannCHEM UFRMD0039-94-31 09:13:000.40[facility] HermannCHEM YWFOE7822-78-53 09:13:01069Eyqvirkh HermannCHEM KYSEA5275-02-87 09:13:003.5[facility] HermannCHEM DFVEC2071-24-53 09:13:42488Tcnhxhmj HermannCHEM BOAWU3595-88-84 09:13:0022 [facility] HermannCHEM BWZIR0880-69-81 09:13:007.7[facility] HermannCHEM PANEL 2019-08-30 09:13:0015.5[facility] HermannCHEM NPOMX1858-13-73 09:13:87528Fusvktfk HermannCHEM EZODP1832-77-65 09:13:00<0.05[facility] JymfbvcIOSBYZCGBQ6157-23-99 09:13:006.2[facility] WsgsolyOSNRWSPUZL1295-90-73 09:13:002.92[facility] DYZASYNCWD1975-43-37 09:13:008.5[facility] XfhggboOSHXGWVBDZ6718-12-00 09:13:00 26.2[facility] WviwfqeQDHSRRCAJW6522-62-80 09:13:0089.6[facility] HermannHEMATOLOGY 2019-08-30 09:13:00 Test Item Value Reference Range Interpretation Comments MCH (test code = MCH) 29.0 pg 27.0-31.0 [facility] HdyfbmfYYJXNRVGCJ3320-43-26 09:13:0032.4[facility] HermannHEMATOLOGY 2019-08-30 09:13:0015.0[facility] DwqpaheOUSYBJHMEZ7141-01-00 09:13:68924Fehipiaq DbhhmvqXZMRZMTFQB6019-24-92 09:13:008.6[facility] XkfaicrNTKVURGOWJ1819-34-83 09:13:0077.2[facility] OhjuowrENFIYXHWMM8673-25-55 09:13:0011.4[facility] HZIPWQBWYL8123-41-35 09:13:009.1[facility] PhaiecfMUSMOZIYVV9902-74-06 09:13:001.8 [facility] ZbucjarGJJQAATNHC8985-29-85 09:13:000.5[facility] HermannHEMATOLOGY 2019-08-30 09:13:004.7[facility] OeuhncdVVWYLMAGYS5420-73-09 09:13:000.7[facility] HvlhqgzLAYJCZCHVP9469-31-04 09:13:000.6[facility] JbaxjyaNGOGCZZFXW3542-56-25 09:13:000.1[facility] HermannCHEM DWZIB0542-62-92 09:13:0057[facility] HermannCHEM XLZLQ1622-63-53 09:13:002[facility] HermannCHEM EDUIU5192-55-34 09:13:000.40 [facility] HermannCHEM AYNOT8808-76-97 09:13:25751Rnsalyxo HermannCHEM PANEL 2019-08-30 09:13:003.5[facility] HermannCHEM YZFAN8970-50-75 09:13:21812Fvdpqqiy HermannCHEM OAUJB8321-79-07 09:13:0022[facility] HermannCHEM MIZVH4147-15-79 09:13:007.7[facility] HermannCHEM OWFQG5999-78-02 09:13:0015.5[facility] HermannCHEM TBXUW6394-97-54 09:13:38645Cdcsflcp HermannCHEM BNXCP5200-06-15 09:13:00 <0.05[facility] DltmfblHCLFWPLYEK0413-09-80 09:13:006.2[facility] NIMZAMOSXH9966-73-83 09:13:002.92[facility] OcxrtjbWKPVDHEVXX3490-44-82 09:13:00 8.5[facility] PbedciwJDBDOBJDOZ1636-80-22 09:13:0026.2[facility] HermannHEMATOLOGY 2019-08-30 09:13:0089.6[facility] LkvmhenOYNMLPSXXQ6739-09-94 09:13:00 Test Item Value Reference Range Interpretation Comments MCH (test code = MCH) 29.0 pg 27.0-31.0 [facility] IrebidjYDZHLUNNAQ8767-30-42 09:13:0032.4[facility] HermannHEMATOLOGY 2019-08-30 09:13:0015.0[facility] JjudrxeRRCSEVLGGB6679-27-39 09:13:73500Zazmklcb BtsdldfRXQVRLMILC2015-65-90 09:13:008.6[facility] AbbhiugOQCRSSFZGP3437-02-75 09:13:0077.2[facility] AubrbpyPHFVPGVJNS1042-26-60 09:13:0011.4[facility] BHPPDOSPOA8826-03-21 09:13:009.1[facility] JnfjhmnORRGQOZOHJ6618-42-43 09:13:001.8 [facility] WfrsdqvMIMIIVWYWU2947-15-31 09:13:000.5[facility] HermannHEMATOLOGY 2019-08-30 09:13:004.7[facility] RvwxqnxOOLENVQRCI2436-87-62 09:13:000.7[facility] LzyvahiMLRWMENLAT7470-76-08 09:13:000.6[facility] UjrlxbjECQELXYVLR9797-91-10 09:13:000.1[facility] VytxwpqOZNZJRCJTT5842-23-36 11:29:00Not Detected (08/29/19 6:29 AM)[facility] QcjcgyzVVKSRNAELR4798-70-05 11:29:00Not Detected (08/29/19 6:29 AM)[facility] HermannCHEM AGLYF9253-91-86 09:30:0071[facility] HermannCHEM PANEL 2019-08-29 09:30:003[facility] HermannCHEM AVAHB2431-85-08 09:30:000.50[facility] HermannCHEM FOGTJ8712-88-61 09:30:25972Cxfdzckt HermannCHEM IXUEF6163-46-13 09:30:003.3[facility] HermannCHEM XMQEU3518-12-63 09:30:50065Puemmxes HermannCHEM XUIQX4191-33-83 09:30:0026[facility] HermannCHEM WQLKV0001-72-06 09:30:008.2 [facility] HermannCHEM NBQVM9909-92-06 09:30:0010.3[facility] HermannCHEM PANEL 2019-08-29 09:30:32617Hoqtakwu EdcwbamVTNHASZUNQ2067-69-33 09:30:005.2[facility] TugntmdMZIMGIJYMY1451-71-45 09:30:002.91[facility] PufetljLXMXSITESX6716-04-33 09:30:008.8[facility] UnpunraIJSUUJQGZI0281-46-64 09:30:0025.8[facility] BTHPGKBRND5798-60-70 09:30:0088.8[facility] TrjkrfbMFNANKZTRT7318-45-46 09:30:00 Test Item Value Reference Range Interpretation Comments MCH (test code = MCH) 30.3 pg 27.0-31.0 [facility] PoquisdKDPKNDITVF1887-50-95 09:30:0034.1[facility] HermannHEMATOLOGY 2019-08-29 09:30:0014.4[facility] UtyvgrgWZLDMHMJSD8778-23-78 09:30:49802Ouzmlsdu HrevtotQNOABXNBKS5475-40-20 09:30:008.6[facility] SmwgherKVNPIVWCGQ9123-10-19 09:30:00Normal (08/29/19 4:30 AM)[facility] FkqvgmoPUZATRQCXS2687-31-16 09:30:00 Normal (08/29/19 4:30 AM)[facility] DcztqncXDGVUSIAJJ2839-53-62 09:30:0070.7 [facility] QliguijOODQZAYZFJ8215-85-33 09:30:0017.3[facility] HermannHEMATOLOGY 2019-08-29 09:30:0010.4[facility] MvqwtopHZHSKFYDHY8576-48-64 09:30:001.0[facility] VofzpjgFCKFDURSMQ8206-50-44 09:30:000.6[facility] MksdeodLNXOUGRQHT1006-80-61 09:30:003.6[facility] JsndkezQWPZSZROSZ9319-79-32 09:30:000.9[facility] LCRVDFQYBF7899-42-83 09:30:000.5[facility] VodaembMTKJINRZVW9308-68-76 09:30:000.1 [facility] HermannCHEM UMUCB0721-36-11 09:30:0071[facility] HermannCHEM PANEL 2019-08-29 09:30:003[facility] HermannCHEM KUWGH7567-86-66 09:30:000.50[facility] HermannCHEM KNHXR2248-63-69 09:30:02327Eohqzwwo HermannCHEM LCSXN3637-09-16 09:30:003.3[facility] HermannCHEM SHHCM2461-97-74 09:30:67777Qokziaix HermannCHEM SLXKI1201-22-61 09:30:0026[facility] HermannCHEM USGFH4857-16-54 09:30:008.2 [facility] HermannCHEM BOJUE3065-43-22 09:30:0010.3[facility] HermannCHEM PANEL 2019-08-29 09:30:65375Jxjrxrwt TuiosgeKVPXNSETVI3009-81-65 09:30:005.2[facility] DgrgcrvSHARYGUERD2904-00-57 09:30:002.91[facility] BwlhauuKMAGASLAQG8348-65-27 09:30:008.8[facility] WqhlsueEPGEQEIJYO2859-88-74 09:30:0025.8[facility] JVFFYOKTBH1775-10-58 09:30:0088.8[facility] PezxdciWLPVXMOAQR2997-89-26 09:30:00 Test Item Value Reference Range Interpretation Comments MCH (test code = MCH) 30.3 pg 27.0-31.0 [facility] XpodhpkMIHTMUHKQM0202-15-94 09:30:0034.1[facility] HermannHEMATOLOGY 2019-08-29 09:30:0014.4[facility] PluryeiZTALBQSXVQ3436-75-56 09:30:44178Ntsvflvh VaycfcxFPJCIEVFLD7380-39-98 09:30:008.6[facility] WvpmerdWHYLWGKMVK3502-58-49 09:30:00Normal (08/29/19 4:30 AM)[facility] JwjbekzVNWQXWZSYK3711-05-63 09:30:00 Normal (08/29/19 4:30 AM)[facility] EfspedtBYTMVKCVYG9858-16-98 09:30:0070.7 [facility] TuntpjgXRRBCYDJQX7201-74-41 09:30:0017.3[facility] HermannHEMATOLOGY 2019-08-29 09:30:0010.4[facility] OqdavabUGWFSQARHK0845-71-59 09:30:001.0[facility] AicziwtYKWNROZTKQ2087-35-04 09:30:000.6[facility] MvmmnmoOASGWCEWZL2639-05-28 09:30:003.6[facility] BcnpaluNZQVAHAIVQ3245-64-06 09:30:000.9[facility] QPQIJPZIOV7463-06-21 09:30:000.5[facility] JomybbyDCBTJKJRLD8804-21-62 09:30:000.1 [facility]BL[facility]OD BANK NBVITRW8601-93-27 10:41:00Product available 4(08/28/19 5:41 AM)[facility] HermannBLOOD BANK RXGOLQO8502-01-72 10:41:00Product available 4(08/28/19 5:41 AM)[facility] IZCOOQO6449-41-73 08:37:00Negative (08/28/19 3:37 AM)[facility] HermannCHEM PUCXL1416-87-99 08:37:005.1[facility] HermannCHEM QHOTH5932-44-66 08:37:001.2[facility] HermannCHEM NCOLN8674-01-69 08:37:007[facility] HermannCHEM ECMIQ9878-65-86 08:37:0014[facility] HermannCHEM UGDFG6936-29-91 08:37:0088[facility] HermannCHEM EGQEV5191-92-73 08:37:000.3 [facility] HermannCHEM UJMID4708-90-58 08:37:00 Test Item Value Reference Range Interpretation Comments B/C Ratio (test code = B/C Ratio) 12 1 6-25 [facility] HermannCHEM RMTIS1222-10-44 08:37:003.9[facility] HermannCHEM PANEL 2019-08-28 08:37:00 Test Item Value Reference Range Interpretation Comments A/G Ratio (test code = A/G Ratio) 0.3 1 0.7-1.6 [facility] OlffojmXLFEHEAJRG8224-48-28 08:37:00 Test Item Value Reference Range Interpretation Comments PT (test code = PT) 17.3 s 12.0-14.7 [facility] DnaisweRNHULGMNZI2324-90-15 08:37:00 Test Item Value Reference Range Interpretation Comments INR (test code = INR) 1.40 1 0.85-1.17 [facility] IxlyhduSLZXHGIWZM7843-99-50 08:37:00 Test Item Value Reference Range Interpretation Comments PTT (test code = PTT) 45.5 s 22.9-35.8 [facility] LiofddzOAFHMNGLLC6793-13-20 08:37:00Normal (08/28/19 3:37 AM)[facility] OgbgffwJAJGWEKNGN6615-90-10 08:37:00Normal (08/28/19 3:37 AM)[facility] HIUPMPDUAX7139-91-00 08:37:000.0[facility]BL[facility] IUVVIAE1752-39-29 08:37:00Negative (08/28/19 3:37 AM)[facility] HermannCHEM TVYLZ8589-55-88 08:37:00 5.1[facility] HermannCHEM YTSUL5919-45-45 08:37:001.2[facility] HermannCHEM PANEL 2019-08-28 08:37:007[facility] HermannCHEM HFNSS5341-88-25 08:37:0014[facility] HermannCHEM RXAXF3703-79-34 08:37:0088[facility] HermannCHEM FURMQ2667-57-58 08:37:000.3[facility] HermannCHEM JRNMF4514-78-67 08:37:00 Test Item Value Reference Range Interpretation Comments B/C Ratio (test code = B/C Ratio) 12 1 6-25 [facility] HermannCHEM GCUOA3601-54-34 08:37:003.9[facility] HermannCHEM PANEL 2019-08-28 08:37:00 Test Item Value Reference Range Interpretation Comments A/G Ratio (test code = A/G Ratio) 0.3 1 0.7-1.6 [facility] KgoqgeyPQZLINLNYG8728-03-18 08:37:00 Test Item Value Reference Range Interpretation Comments PT (test code = PT) 17.3 s 12.0-14.7 [facility] YkbriyxCZHZXTWSBI5678-14-48 08:37:00 Test Item Value Reference Range Interpretation Comments INR (test code = INR) 1.40 1 0.85-1.17 [facility] TkklksxIXZVXJDZCX4937-89-60 08:37:00 Test Item Value Reference Range Interpretation Comments PTT (test code = PTT) 45.5 s 22.9-35.8 [facility] XosbhmbZGUNVHKRZU1840-39-41 08:37:00Normal (08/28/19 3:37 AM)[facility] NiwuebbXXRSDHPFYJ1476-50-27 08:37:00Normal (08/28/19 3:37 AM)[facility] WVDYQBMDSX4934-63-15 08:37:000.0[facility] HermannSARS-CoV2/RT-PCR ([facility])2019-08-27 00:51:00 Test Item Value Reference Range Interpretation Comments SARS-COV2/RT-PCR Not Detected Not Detected, (test code = Negative, See 92922-9) external report for linked test SARS-COV-2 [facility] PERFORMING LAB (test code = 86651-3) ABAD (test code = Negative results do not ABAD) preclude SARS-CoV-2 infection and should not be used as [...] of the Act. Fact Sheet for Healthcare Providers:https://www.[employer]/Documents/Xper t%20Xpress%20SARS%20CoV- 2/Fact%20Sheets/302-3802 %65SNCR-VXV-0%20HEALTHCA RE%20PROVIDERS%20FACT%20 SHEET.pdf Fact Sheet for Healthcare Patients:https://www.[employer]/Documents/Xpert %20Xpress%20SARS%20CoV-2 /Fact%20Sheets/302-3801% 98ULEN-LHT-6%20PATIENT%2 0FACT%20SHEET.pdf Performing Laboratory:[facility] [place] [address] [facility])2019-08-27 00:51:00 Test Item Value Reference Range Interpretation Comments SARS-COV2/RT-PCR (test Not Detected Not Detected, Negative, code = 2491389) See external report for linked test SARS-COV-2 PERFORMING LAB [facility] (test code = 9998242) Negative results do not preclude SARS-CoV-2 infection and should not be used as the sole basis for patient management decisions. Negative results must be combined with clinical observations, patient history, and epidemiological information. A false negative result may occur if a specimen is improperly collected, transported or handled.The limit of detection for this assay is 250 copies/mL.This SARS CoV-2 test is a rapid, real-time RT-PCR test intended for the qualitative detection of nucleic acid from SARS-CoV-2 in a nasopharyngeal swab specimen collected from individuals suspected of COVID-19 by their healthcare provider.This test has not been Food and Drug [...] is revoked under Section 564(g) of the Act.Fact Sheet for Healthcare Pro viders:https://www.[employer]/Documents/Xpert%20Xpress%20SARS%20CoV-2/Fact%20Sh eets/302-3802%27JMWR-XUB-4%20HEALTHCARE%20PROVIDERS%20FACT%20SHEET.pdfFact Sheet for Healthcare Patients:https://www.[employer]/Documents/Xpert%20Xpress%20SARS%20CoV-2/Fact%20Sheets/302-3801%20SARS-COV -2%20PATIENT%20FACT%20SHEET.pdfPerforming Laboratory:[facility] [place], [place] [address] [facility]uk[employer] LZM3014-28-09 23:54:00 Test Item Value Reference Range Interpretation Comments CROSSMATCH (test code = 2264) COMPATIBLE Unit ABO (test code = A Pos 8605347) UNIT NUMBER (test code = [id number] 934-0) Status (test code = 1121055) [place]_TIMEINCHART Blood Bank Product (test code RED BLOOD CELLS = 2263) PRODUCT CODE (test code = G2584O17 933-2) [facility] Test Item Value Reference Range Interpretation Comments Case Report (test code Medical Cytology = 104) Report Case: [id number] Authorizing Provider: Uriah Childs Collected: 02/15/2019 1226 Ordering Location: [address] Received: 02/15/2019 1529 Service Pathologist: Nereyda Causey MD Specimen: Common Bile Duct, Distal bile duct brushing in CRR DIAGNOSIS (test code = n9dkyETzHRErx0zoHWCcrN 3220) FuZzEwMzNcZnRuYmpcdWMx PRyudiMyASuhk8CyO7WlIb AwMFxhbnNpXGRlZmxhbmcx BKBiBYN0leBaNRSoSZfuPU RuJJjaFd1oaZQrrPizLyRe YALio0ixeaQCoigldUy4r1 zwHUEpJnF6hUMzZStlP4kz meQisIPwXVIqCXd4mW61PG BdbX1peZVyYAesghGeGuU4 QGdaTZKbNjA6QEBxtABjHA GdS5zhHKGiFEwqMHOjIFvz zQPwAND9lDxxu9R1pMEagH NhmSstUtLyVaPaMYFZy0Oq JIq7pTmgF0GqKVSeHeR5sP QgUGFyYWdyYXBoIEZvbnQ7 fB87SYezxqK6hPJfz5Jfd8 7yr104rD4umFHrBED7CHBu RYQifLYpCMTlZEH0RCKcdM OtF6h3LvGkwOPjR6C3KhPp pAXqF8T5FuWkiODsN0W2Sy UuxQLwLYDnfAGlWm8gbVXk zJBwiy9xfz45KIT2j0EszJ hgVXU1NRD4JlEfHj0doQSw EWAoVE5zMbDpuDBqARJslp 25sYbaEUotwlDniS4dGuEm AZOfuLPfRBYvFI2ktLAfDB BnfF4ozisvTXTpHjSlthlk IGIasAjrlrWkQc4ctUycQI C4MZkfF8eteC9oOyD2XWkz E7cafJ4dQFj8TGvlxCZ1EY PetP2jLU9rxtyak7wnJvUk KC7rfbbkh5coYiCbBI7qvy m6j4koYfJsMD3zjbrgz2sj NzIwXGhlYWRlcnkwXGZvb3 LfpimzXWQvp2GbQ5VlaBvk U71ubKkzB56bRKKtlEsugG 0tkSxreR5mKgNxEoKlIHmi bFxwbGFpblxmMVxmczIwXG litxfyUJJlYUuwN2nhZdIt QOKywFhtFNpmb9GqMWEgAD FdNqPwF67BXJ3WASRTAOOr RFVDVCBCUlVTSElORyAoQ1 fYP8TJZW4EYGRGQCXOPRqH YFMDL5YALHyheJcjYUSiCH NmBG1JSPAVFMYUCEnMOPUU GLKCSThLDbPSWoMKMB5VXR BGQVZPUiBSRUFDVElWRSAo X2NUHNDUNJ5VVoJmVGAfjp 00FWM3ZiWrb4U5SPW5CCLd CQUqm1lmBLZbdLUpZjPfXg NcZnRuYmpcdWMxXGRlZmYw t2ahz565aQNhd7fyRZFqEe C9lJPfASDnfGLhP163CLSj BZapb2mvg6AgGDUqwBBbq0 C7JPMEclgqxTs2gYjrW07o h7V2LbrsF6qkBTLpYZWxW7 IiZI2uVUAsHia9XDF2HGW6 UXXpXDBgP6FcMZ9hVOVyjA KlKYa7g1nsrFrtRJNyATG5 m5awBKalouJrOQ1xia1awO y9r6fmfkGbBCDqEWUhhUHH BQNeR9JchPszLr5vjEq8jT dxQlccXPP1Fsx7LR3rnt18 vbc5qLvsKHGzhcgiHdK0AJ knRRHffpgeTYa1UFciEDDq vTW7DJGpwYMkC4ZoBQVaOF 7olho0BWS6KIrpRHAnAxN1 NDBcaGVhZGVyeTcyMFxmb2 03HRR6KmKaAV1eJ2Ocj7I6 pZ2gfIUwWQVsjGHvPuTpHV Tfrb0gmEOoJXacy3SkNOC7 ewE1cZBuqHJsBRDdJdY6VJ bbKR7xbt98XPOdAYC5lo0q bGNccGdicmRyaGVhZFxwZ2 XzXPPzp972PMQdH4BqWVKh f0P4opAxSpNiZUEouHE2ji D6FIZrPX0gjueyh7brFFyi KWnbQKPhmnI2ftM4HLSdeS IbV9CfnG5xWEVnIG7tcuyy j1foSNH9UIjpAYHgUBL4Iw OxHIBjg3Aouhv9JwAzf8Ey sEXsANsbP30uz596DUHxdn PiZ9kngDJwamytxTOjeiuy VLewrxD2HNEfUFrsiklpKB ImHQhqT6ftEiXoBNOxtHfh VIbvh8LoPPTyUTUlXmDubM HlHNTpKfy0KKZqeLEwJPYu UsOpK5nmpyywUpYLJBVme7 otI2pzwRYYlNEiW0QfZWdj pgJvCDtnPDzrESM9AUX3Vf 37EpD1HRQxgp84 COMMENT (test code = k2prtOEnOZMgqSVkAwBaVD 3359) ToORJfh3meEAXniGSfUqAv MzNcZnRuYmpcdWMxXGRlZm Bic0fdk710bXXnr4vyBTLs MfD3wPHaQSUrgYRrY939b1 ccs5ffixWgfGA8YZAdWOV8 CHvbreQesdN6GQgayUYrBz R8CLsfxmHoLQinlcXrgvZw Oqw1EJFqW482FVH2vNgvd8 lyTLO6GOOhZHSrSaXgSi4p hCMaW280NWQcGAMMBZXneU i3VPRyfgSyddNdjWTGa443 O134f8msNUTmmbRdvCfIjd cee5xnR248UUFzeHIbhyVq SjXlMLNwqIFjuME3ALRwXC 9vssytBfHeGS1lirznZqHp QV7zheh1MaHsQN2wgbnwMi WfNShdAGLppqsrCOVou1Bt ryigCE6gE7Lpy3S1hM1xuA TjQHMmrCRwSgRuZVUpzl5a yUUbIDbgv1ZdBFP8huE0sT MldTBnIMJxWQ71Purmz4Ko ElysXMO3VPUuttCwe9Zka1 svGsCxooMgD2fuE2RnDRYq EUYkSXLbKiVgcaDqr5Zfi6 KdcUMviKi4c4fvDODnVSYc dLyyi0rlFXA7HUIlR0G5tO Mlb2lsAGweGZZrxZU3bbyc LNmkCGJgxsM3yzomZGwxMQ CjuYD3yzyeYCjcFROiHaP9 hqhsAOsoBVHkOVY1MXwpp3 29VNN5EXogDwkhTBnnIGVv bmNvbnRccGduZGVjXHBsYW luXHBsYWluXGYwXGZzMjRc gZizjPsusL4kWzGeMsJyQU clOH3mUCIpC5hhqVZsUHKb EHYsN5itOfYreO4paYbmLW xmczIwIEZldyBtaWxkbHkg HRR3rYroIOavO6HrbCKdVE VdRPZuJTQekoMgWW1oMZhk xToyyRrgGXkbm0Kczbrah3 Rhy7VwvwYkYORaopMmF2Lp sbSmcBIiF2YhtmEoadPjLP ZvcmVkLiBDbGluaWNhbCBj q7KpXNrvbVoguhWmlhZvTD WucF0tioJiAC6uyKWvsO== CPT Code(s) (test code s8sywENbCQEqcYFmRfFqXT = 3357) ClKAVzz2ryVYZkdTXkQgCy MzNcZnRuYmpcdWMxXGRlZm Wcd1zwn102eYKmo4bxFFCq LzS0cDVtNQFsmQFdC335x7 pgc5mdkpPscYB4MORoLJW8 GOjkqlAnflQ2MKmwvBBwBn H1SGdoyqMiBEueiiYeyuGn Ooz6CTZeR075POK5eKquu2 eeHZV0UOAgNCYsOeCjDd8z cUKvM686UCOkDHWUDTMouF y2RCGuiuSwkjNjlSWNt249 Q656t1meWPEegeXlfNjFxi ywp1wgI328VXXpbUYmykTl CcYiANXyeXFjwAZ4FJAyKT 7ezofmHlJiML6uzxxbXrZv WK7gkua6VkMhXQ8skpocTc ThROxcZPZksyhnDKYfx7Bh kwrsXF1kO7Bgw7E2rV2cmF MxIQJgpHPqDhLsPQBlcr0y sLEhKFgtm0QkFNB0nvW9eN YbwSFzGGKjKC86Ojcnd5Do BkeeYOB4ENDixcOya1Txk2 fnZcTknkYcZ9ubX5FeUSKo EAAqISOeEpAmujXmx3Lph0 ZpvGSczJs3f7rgZMBjDBXl aWdtb4toJCM3YDBvH5R9aW Mlu3euEUgdLIOsnTZ0knpl BJhfZOVhgwC9sacoNQbbHF SbdOG0jcwfXPqfFWMnKuR4 vfznORzmQBPkENZ7SSunz4 81YSF6ZFvqSnraETtlAJBb bmNvbnRccGduZGVjXHBsYW luXHBsYWluXGYwXGZzMjRc aDwrkHhsdR7bKeMbQkOfIF caDJ3yZHBiS5mfxACcLOCl LNMbF2wmIdOfdB2gxYcfZQ dnktMaMPy4SJG9EZF0YYYp NVxwYXJ9 CLINICAL DATA (test t6stcUHnNCAehRWyDwWcMF code = 3353) VaIGVyl7ulRFRrwIYbMdXu MzNcZnRuYmpcdWMxXGRlZm Wzf3umo463rJHor9qwUMTu XsA1nRKbIBAcdLQeO350ZO NoRMjuc4bnq0PaICGouNJt t2K3CXRXmxlfaIm8yDuvN1 7lk3Y9ZojaW4mgXSJnWJLk B5FiND0cVTPgUma7IXT1WD H2DQVcHSDeG9VpNA8dEWPx oPAeCCs9p6cyhRveTARtDU Q5q1aoCCdxpfLiSG5bhi7m qJe4u3zfrgGsQNDpPSZobZ LBODByX1UuqOahQs6ssRh1 nYjsTouvNPV8Oym9UA4vtp 33duc4eIpaCBWqjqprJtR0 LNesZNXaafbqOVe1TKbjFV JnbDcyMFxtYXJncjcyMFxt YXJndDcyMFxtYXJnYjcyMF rlDQZhCYE8KUshn010GWQ5 KShin5nko8wjhQMkUzu9RH SvGdVeMijwEXrmy2Oxm8wd LAQuvr6iOIT9zPDnyYphk8 F5oUTcDRBqxUJutxPuVREs PkA0UTxxRP8uuk51CHCxIY T5ss6lyVMomNvlveMzxKLq XHcmW5PpLCLsr332OAJnU7 NcCOPxd5A3msRrQjFmWBYy sEG6cuL4RPSlHCh7cKZrxr H7ffOswHKjF8hnbD30KtVh hJZbN3QlvA61OeGirLMrJ4 VbnL07GqIosBKaP7RzkP75 YlFsaESrSWCzpCPjTh3qcF YziHFri9NvuPKpIYzkY78k t856CYIatjLuC5zfrBAomd ztaWYwnrgnIRfzcrW2FGCp XHBsYWluXGYxXGZzMjBcbG FuZzEwMzNcaGljaFxmMVxk RdHeYQQfECmjV1lvLgLgBt MyMCBKYXVuZGljZSwgYSBs l8WgyHc4DMYlFrhvuEBjhC YucYUqW4V4fvPmj8s2zLI1 jIX1kmVurLUfjMqviJyrjo xwYXJ9 SPECIMEN SOURCE (test f5sfsGXkWYMpzEWuWdUpCA code = 3377) WmOVTfy0kdHMVyeMHnOnCg MzNcZnRuYmpcdWMxXGRlZm Djy0hui063uFKqc4nhNVIk AgB2pJOpAVJmbGEbU173q5 vpn3jdxnLuiSU3JRGkMPF8 IAwbbnSxpzP3KIhyeYMhYv M1XAoqbdRdFXhrcpMjfeMq Grv0MVFoC707UKU5kDzht5 gpPHY5QRTqMNDhHnTkXl6s fAPiV851TQLcCQAMYHYsdF l1LRIftxSblsHoaLJGs386 P108w7hcJZAlchCjnBdAkj elf3bfK248ZPHtjDHfckBj SzYhRYPyoOItaZA2GNXlCF 3jnousIeBdHS8bpwivLvYo DT4bwej9FtQpDH1mzigaNs NuISicCUGuwqawERMns2Od twaxDQ5yN2Qgj1F3aH8imA CyPXSbdZAiKkTwUOCsec2d sGFdMPbgl4CcTCA9qlZ4wP WkuTJtYYFqTZ42Hztea7Wr HdunNZK8NBDgmhAju0Ltl8 ipOePkwcFuB3pdH0OvYHSs EAEfTOXnRlDpivWsg3Kqb8 DjqKFaqCm0x5dkYNGgEFJb dHarm5wpTPH8KVOuU6Z7fN Act5nrJMobHUKjgIE9fzdb GDdcYKClwzZ2bumsKJvqDY VmyPF2gunaOEztNDPhUrP9 hsrhUGhnNPFzIIN4UDpeu7 41XDY5HFqrWvidQKqpPFRs bmNvbnRccGduZGVjXHBsYW luXHBsYWluXGYwXGZzMjRc nRewlKxuuU1rYfPcCqSvIM eeTG7dMQSaI7altTRfECRu GKSvS4jxYiDkhH4wxCfyXS bhyzMrYYFQCK6KGeRQIYjH NGFGS8JuOoCRL6oLGskjhL FyfQ== GROSS DESCRIPTION (test e7vchVDzTKOxtWHdCoSfMF code = 3366) GoSAPej3umHHRskQTxYmIo MzNcZnRuYmpcdWMxXGRlZm Ygb1ega635hBQdi8tgDAMb OrG3uDXbNZFfbDOrE505HG XuGOsqf7tjc2FpMBXsrHHe n8J3SZGCtsujmRk5qPahY7 9ut3Z8QqyhP2ngERFcRGMo Y4OmMG1yJKIcWgl8TIS4BM P1ATFwTJGxA3VbEC9lAWLd wWTnWHr3w7aelKxkXRYxIB P1v7sxTIhxjuWvDL6lcj7p cSv5t9vkjeEsVLHtGMPbxB AHIXJrR7AvpQwfTk8czIj1 tKbtEkwnVFZ1Uit9AZ3agb 13obc3gJwnTXBurjwkZuQ7 THsuTJXxedolLPl2GSdjTL JnbDcyMFxtYXJncjcyMFxt YXJndDcyMFxtYXJnYjcyMF bmGLFeDSD6QTprt814SPQ2 LLgow5sqv9vkgJYgYur5HI ClXmHrDdnaJWnug5Iew2od ZRMddd2sAHG0pXXrlUuvx1 X2zKOwZPXaiXGpihBqZKVs LdN0TPekXO6jqk49SBFzUU Z6xv1vlCPvhAlhniQlkJNs WGjoQ1HmCWAlp238PAPfO9 RqDXPvp1E4jkOiEcLgSIEj mFC3ewX2LOOqMIx5mCNojc S8vrZqsCTmM7etsD14MxFb qPNeE4QcvL56KtEmsYDcU9 ZknW26VkQsvMLtT0RkxC18 MbWnrYKmVVQmjBPoXo6fgN CqjPNuy7WgrDTkHGgoE87e c182PGTvehUtW5dogWNlmz zvkLXdudlwLZihndU0GWEr XHBsYWluXGYxXGZzMjJcbG FuZzEwMzNcaGljaFxmMVxk MyLcASPrZIkbU5kuHyExQe FiXcYwZLGisMYsyK8qL7w6 d0IuR4hprxNhDmKpZJI2lI 3unRuvtjzbZ6VgsXXmgE8f qgEbK06yaI3oqO5oHIAvBj vsdWKkGPFmsOxrG6AiFSby MDExMTIwXHBhciBSZWNlaX ZlZDogMDExMzIwXHBhcn0= MICROSCOPIC DESCRIPTION d7rfjTFqACFxiHFeWsQbIB (test code = 3371) EoYZMft1uySYUptQGqOxRw MzNcZnRuYmpcdWMxXGRlZm Aeu7lem556xWTfr8viDAAi CbQ7qBUmRVRdsHEqT263r5 pin5rmhjCecYA3DMIlRAQ2 SGredkLwjpE4EZrmsHZvAd P5DSvwrzFfOChutfYbgxJu Acn6XSTvW718YGI0tLkte1 mdXFM1ZBKpVJWjOcKiWd2d pUJvA256DXFfJKZMCPAbeO m5RUUugfIsopQsxCFMi034 L891v7njTCAmpoFqyXvRif xxp7rqG349KEWnrIQbgoWx NgBkZMKelYXgbFX5XZWjBY 6mhuvtEiIwAV1kkgzqGfOb XN9nmkn0LlCqYQ6cwhwlIz JvNZsqKDWxnsfdPBXpo2Kw yeikQU9uB3Ric3W9jY1xzK ZuIWBwnZYqNmKuSTHfns8e zEAjYZztl6WkMME0hyD6iA LtxABkVYBnJY07Orldb5Cw QxigOKI4UXZavmJlc9Gxo3 bwSeRxdrCwM7hrA1TcYQRm KYGtDTFhIsGnwlYlc7Tql7 TxeBAwsJe2e5sbRNKoRUEw lLaag1dvVBW2RSMxM0D8lY Vcd1vwYIdbKVYziZL8kdyf SVxpKDBszjR6pnyiURycTG EhuOL5ioweYRzxSIFwYcG7 flrcWMlxGHGmZWI1XSrmo1 82TEC1IFjxQjfiOBsnYONc bmNvbnRccGduZGVjXHBsYW luXHBsYWluXGYwXGZzMjRc uTrqwNrguT0vRtDcQrUiXD gkZE4pINBnR7rmvLWfPFRk NIQrM9nwEqSfpF3utOatWN rshkHsFFGgygEvza4qKM4c cGFyfQ== STATEMENT OF ADEQUACY Satisfactory (test code = 2757) Gross assessment was [facility] performed at ([facility], = 2777) Department of Pathology, [address] [place] [address], Technical component was [facility] performed at ([facility], = 2778) Department of Pathology, [address] [place] [address], Professional component [facility] was performed at ([facility], code = 2779) Department of Pathology, [address] [place] [address], [facility] 17:29:00Medical Cytology Report Case: [id number] Aut horizing Provider: Uriah Childs Collected: 02/15/2019 1226 Ordering Location: [address] Received: 02/15/2019 1529 Service Pathologist: Nereyda Causey MD Specimen: Common Bile Duct, Distal bile duct brushing in CRR COMMON BILE DUCT BRUSHING (CYTOSPINS AND CELL BLOCK): - MILDLY ATYPICAL CELLS PRESENT, FAVOR REACTIVE (SEE COMMENT) Signing Pathologist Direct Phone Line: [phone] signed by Nereyda Causey MD on 02/18/2019 at 5:29 PMFew mildly atypical cells are present and with the history of stent, a reactive process is favored. Clinical correlation is recommended.04713, 40067Uzxehodz, a localized biliary stricture with upstream dilationCOMMON BILE DUCT PZBROXOT74 mls in cytorich red; 2 cytospins, cell block (collodion bag)Collected: [id number]: [id number].[facility]atisfactoryB[facility], Department of Pathology, [address] [place] [address], [facility], [facility] of [facility], [address] [place] [address], [facility], Department of [facility]ology, [address] [place] [address], Lkbuoghy8446-01-14 14:54:00 Test Item Value Reference Range Interpretation Comments Ferritin (test code = 187 ng/mL 5-275 2276-4) ABAD (test code = ABAD) Director Distribution ID - LA Lab Interpretation (test Normal code = 29630-2) [facility] HospitalFERR[facility]IN2020-01-14 14:54:00 Test Item Value Reference Range Interpretation Comments FERRITIN (BEAKER) (test code = 361) 187 ng/mL 5-275 Director Distribution ID - LAComprehensive metabolic [id number] 14:41:00 Test Item Value Reference Range Interpretation Comments Protein, Total (test 5.4 6.0- 8.3 gm/dL L code = 2885-2) Albumin (test code = 1.9 g/dL 3.5-5 L 74116-9) Alkaline Phosphatase 1089 U/L 40-150 H (test code = 6768-6) Total Bilirubin (test 2.7 mg/dL 0.2-1.2 H code = 1975-2) Sodium (test code = 136 meq/L 520-418 6803-2) Potassium (test code 3.8 meq/L 3.5-5.1 = 2823-3) Chloride (test code = 105 meq/L 98-107 2075-0) CO2 (test code = 28 meq/L 22-29 2028-9) BUN (test code = 3 mg/dL 7-21 L 3094-0) Creatinine (test code 0.50 mg/dL 0.57-1.25 L = 2160-0) Glucose (test code = 90 mg/dL 70-105 2345-7) Calcium (test code = 7.5 mg/dL 8.4-10.2 L 83270-3) AST (test code = 58 U/L 5-34 H 1920-8) ALT (test code = 30 U/L 6-55 1742-6) EGFR (test code = 195 mL/min/1.73 [place] [address]-1) NOT ACCURATE CREATININE CLEARANCE IN PREDICTING GLOMERULAR FILTRATION RATE . ESTIMATED GFR I S NOT APPLICABLE FOR DIALYSIS PATIENTS. ABAD (test code = ABAD) Director Distribution ID - CARLOS CSpecimen slightly icteric Lab Interpretation Abnormal (test code = 26239-5) [facility] HospitalCOMPREHENSIVE METABOLIC [id number] 14:41:00 Test Item Value Reference Range Interpretation [...] S NOT APPLICABLE FOR DIALYSIS PATIEN TS. Director Distribution ID - CARLOS CSpecimen slightly ictericHemoglobin and alovhrvyam2569-10-85 12:27:00 Test Item Value Reference Range Interpretation Comments Hemoglobin (test code = 9.0 13.7- 17.5 GM/DL L 786-4) Hematocrit (test code = 29.6 % 40.1-51 L 4544-3) ABAD (test code = ABAD) Director Distribution ID - [id number] Lab Interpretation (test Abnormal code = 13708-9) [facility] HospitalHEMOGLOBIN AND [id number] 12:27:00 Test Item Value Reference Range Interpretation Comments HEMOGLOBIN (BEAKER) (test code = 9.0 GM/DL 13.7-17.5 L 410) HEMATOCRIT (BEAKER) (test code = 29.6 % 40.1-51.0 L 411) Director Distribution ID - [id number] Metabolic Izhpz7176-37-51 11:55:00 Test Item Value Reference Range Interpretation Comments Sodium (test code = 136 meq/L 384-648 7985-2) Potassium (test code = 3.6 meq/L 3.6-5.5 2823-3) Chloride (test code = 105 meq/L 98-106 2075-0) CO2 (test code = 25 meq/L 20-29 2028-9) BUN (test code = <3 10-26 L 3094-0) Creatinine (test code 0.52 mg/dL 0.5-1.2 = 2160-0) Glucose (test code = 84 mg/dL 70-110 2345-7) Calcium (test code = 7.8 mg/dL 8.5-10.5 L 87429-8) EGFR (test code = 187 mL/min/1.73 sq [place] [address]-3) NOT ACCURATE CREATININE CLEARANCE IN PREDICTING GLOMERULAR FILTRATION RATE . ESTIMATED GFR I S NOT APPLICABLE FOR DIALYSIS PATIENTS. ABAD (test code = ABAD) Director Distribution ID - bong75Tjacdrbd slightly icteric Lab Interpretation Abnormal (test code = 78801-1) [facility] HospitalBASIC METABOLIC [id number] 11:55:00 Test Item Value Reference Range Interpretation [...] S NOT APPLICABLE FOR DIALYSIS PATIEN TS. Director Distribution ID - [id number] slightly ictericType and screen, automated 2019-02-17 10:42:00 Test Item Value Reference Range Interpretation Comments ABO/RH AUTOMATED (BEAKER) (test A POSITIVE code = 2260) Ab Scrn (test code = 890-4) NEGATIVE [facility] HospitalLipase2020-01-13 09:47:00 Test Item Value Reference Range Interpretation Comments Lipase (test code = 72 U/L 6-51 H 3040-3) ABAD (test code = ABAD) Director Distribution ID - yyhf69Puhajzrl slightly icteric Lab Interpretation (test Abnormal code = 34234-3) [facility] HospitalLIPASE2020-01-13 09:47:00 Test Item Value Reference Range Interpretation Comments LIPASE (BEAKER) (test code = 749) 72 U/L 6-51 H Director Distribution ID - rwxr37Ryantquf slightly ictericIron, TIBC, % sat. (without ferritin)2019-02-17 07:14:00 Test Item Value Reference Range Interpretation Comments Iron (test code = 2498-4) 15.0 ug/dL 40-160 L TIBC (test code = 2500-7) 124 ug/dL 250-450 L Iron % Saturation (test 12 % 20-55 L code = 2502-3) ABAD (test code = ABAD) Director Distribution ID - SOTERO M Lab Interpretation (test Abnormal code = 30474-9) [facility] HospitalIRON, TIBC, % SAT. (WITHOUT FERRITIN)2019-02-17 07:14:00 Test Item Value Reference Range Interpretation Comments IRON (BEAKER) (test code = 547) 15.0 ug/dL 40.0-160.0 L TOTAL IRON BINDING CAPACITY 124 ug/dL 250-450 L (BEAKER) (test code = 769) IRON % SATURATION (2) (BEAKER) 12 % 20-55 L (test code = 2590) Director Distribution ID Binu BEY MHEMOGLOBIN AND [id number] 06:32:00 Test Item Value Reference Range Interpretation Comments HEMOGLOBIN (BEAKER) (test code = 6.8 GM/DL 13.7-17.5 L 410) HEMATOCRIT (BEAKER) (test code = 22.3 % 40.1-51.0 L 411) Director Distribution ID - GenevieveTSH/Free T4 If Ktrmsipra8994-34-27 05:53:00 Test Item Value Reference Range Interpretation Comments TSH (test code = 97791-8) 2.31 0.35- 4.94 uIU/mL ABAD (test code = ABAD) Director Distribution ID Binu BEY M Lab Interpretation (test Normal code = 84249-2) [facility] HospitalVitamin B12 and Qguhsz6365-86-21 05:53:00 Test Item Value Reference Range Interpretation Comments Vitamin B12 (test code = 665 pg/mL 972-414 0231-9) Folate (test code = 12.3 ng/mL >=7.0 2284-8) ABAD (test code = ABAD) Director Distribution ID - SOTERO M Lab Interpretation (test Normal code = 21766-1) [facility] HospitalTSH/FREE T4 IF [id number] 05:53:00 Test Item Value Reference Range Interpretation Comments THYROID STIMULATING HORMONE 2.31 uIU/mL 0.35-4.94 (BEAKER) (test code = 772) Director Distribution ID - SOTERO MVITAMIN B12 AND [id number] 05:53:00 Test Item Value Reference Range Interpretation Comments VITAMIN B12 (BEAKER) (test code = 665 pg/mL 213-816 774) FOLATE (BEAKER) (test code = 362) 12.3 ng/mL >=7.0 Director Distribution ID - SOTERO MCBC (Hemogram only)2019-02-17 04:42:00 [...] 450 K/CU MM MPV (test code = 34429-4) 10.2 fL 9.4-12.4 nRBC (test code = 413) 0 0- 0 /100 WBC Lab Interpretation (test code = Abnormal 83239-5) [facility] (HEMOGRAM ONLY)2019-02-17 04:42:00 Test Item Value Reference [...] WBC 0-0 (BEAKER) (test code = 413) [id number] 12:25:00 Test Item Value Reference Range Interpretation Comments LIPASE (BEAKER) (test code = 749) 64 U/L 8-78 Director Distribution ID - THUAN FHEMOGLOBIN AND [id number] 10:31:00 Test Item Value Reference Range Interpretation Comments HEMOGLOBIN (BEAKER) (test code = 7.2 GM/DL 13.7-17.5 L 410) HEMATOCRIT (BEAKER) (test code = 24.0 % 40.1-51.0 L 411) Director Distribution ID - 6000FL, KZML7909-16-66 09:17:00Reason for exam:->jaundiceFINAL REPORT A fluoroscopic unit was utilized for a procedure performed in the operating room. No interpretation was requested. Please refer to the operative report regarding findings. Please refer to PACS for patient radiation dose information. Signed: Josef Bowman Verified Date/Time: 02/16/2019 09:17:37 Reading Location: [address] Body Reading Room [place] ERCP 2019-02-16 09:17:00Interface, External Ris In - 02/16/2019 9:19 AM CSTFINAL REPORT A fluoroscopic unit was utilized for a procedure performed in the operating room. No interpretation was requested. Please refer to the operative report regarding findings. Please refer to PACS for patient radiationdose information. Signed: Josef Bowman Verified Date/Time: 02/16/2019 09:17:37 Reading Location: [facility] C013Y CT [facility]2019-02-16 07:59:00 Test Item Value Reference [...] (BEAKER) (test code = 413) Hepatic function rynwc8116-89-27 05:15:00 Test Item Value Reference Range Interpretation Comments Protein, Total (test code 5.2 6.0- 8.3 gm/dL L = 2885-2) Albumin (test code = 1.8 g/dL 3.5-5 L 17714-7) Total Bilirubin (test code 2.4 mg/dL 0.2-1.2 H = 1974-2) Bilirubin, Direct (test 1.8 mg/dL 0.1-0.5 H code = 1967-7) Alkaline Phosphatase (test 823 U/L 40-150 H code = 6768-6) AST (test code = 1920-8) 27 U/L 5-34 ALT (test code = 1742-6) 23 U/L 6-55 ABAD (test code = ABAD) Director Distribution ID - SOTERO M Lab Interpretation (test Abnormal code = 25186-6) [facility] HospitalHEPATIC FUNCTION [id number] 05:15:00 Test Item Value Reference Range Interpretation [...] (test code = 23 U/L 6-55 347) Director Distribution ID - SOTERO OMPREHENSIVE METABOLIC [id number] 05:14:00 Test Item Value Reference Range Interpretation [...] S NOT APPLICABLE FOR DIALYSIS PATIEN TS. Director Distribution ID - SOTERO MPT/[id number] 04:41:00 Test Item Value Reference Range Interpretation Comments Protime (test code = 17.3 11.9- 14.2 H 5902-2) seconds INR (test code = 1.5 <=5.9 6301-6) PTT (test code = 50.8 22.5- 36.0 H 45029-8) seconds ABAD (test code = ABAD) Effective 07/03/2018: PT Reference Range ChangeNew: 11.9-14.2 Previous: 11.7-14.7 RECOMMENDED COUMADIN/WARFARIN INR THERAPY RANGESSTANDARD DOSE: 2.0-3.0 Includes: PROPHYLAXIS for venous thrombosis, systemic embolization; TREATMENT for venous thrombosis and/or pulmonary embolus.HIGH RISK: Target INR is 2.5-3.5 for patients wiht mechanical heart valves. Lab Interpretation Abnormal (test code = 71197-7) [facility] HospitalPT/[id number] 04:41:00 Test Item Value Reference Range Interpretation [...] is2.5-3.5 for patients wiht mechanical heart valves.Prothrombin time/[id number] 04:40:00 Test Item Value Reference Range Interpretation [...] valves. Lab Interpretation Abnormal (test code = 80838-4) [facility] HospitalPROTHROMBIN TIME/[id number] 04:40:00 Test Item Value Reference Range Interpretation [...] is2.5-3.5 for patients wiht mechanical heart valves.CYTOLOGY [id number] 17:00:00 Test Item Value Reference Range Interpretation Comments Cytology (test code = See Separate Report 3779) [facility] HospitalCYTOLOGY [id number] 17:00:00 Test Item Value Reference Range Interpretation Comments CYTOLOGY RESULT POINTER See Separate Report (TAI) (test code = 2629) CBC with platelet count + automated [id number] 12:12:00 Test Item Value Reference Range Interpretation [...] MPV (test code = 10.6 fL 9.4-12.4 93551-3) nRBC (test code = 413) 0 0- [...] 2801) Lab Interpretation (test Abnormal code = 25153-7) [facility] W/PLT COUNT & AUTO [id number] 12:12:00 Test Item Value Reference Range Interpretation [...] (BEAKER) (test code = 2801) BASIC METABOLIC [id number] 10:22:00 Test Item Value Reference Range Interpretation [...] S NOT APPLICABLE FOR DIALYSIS PATIEN TS. Director Distribution ID Binu CONNERpecimen slightly ictericHEPATIC FUNCTION PANEL 2019-02-15 10:22:00 Test [...] (test code = 29 U/L 6-55 347) Director Distribution ID Binu Álvarez slightly ictericPT/VHEO4330-31-41 06:54:00 Test Item Value Reference Range Interpretation [...] is2.5-3.5 for patients wiht mechanical heart valves.PROTHROMBIN TIME/[id number] 06:53:00 Test Item Value Reference Range Interpretation [...] is2.5-3.5 for patients wiht mechanical heart valves.Manual Esesxivhgwci8479-77-77 11:17:00 Test Item Value Reference Range Interpretation [...] = 3438) ABAD (test code = ABAD) Director Distribution ID - Lorenzo Haleycade comments: Slide comments: Lab Interpretation (test Abnormal code = 44859-7) [facility] W/PLT COUNT & AUTO [id number] 11:17:00 Test Item Value Reference Range Interpretation [...] to report due WIDTH (BEAKER) (test to [facility] RBC code = 412) population distribution. PLATELET [...] CONCENTRATION Adequate (CELLAVISION)(BEAKER) (test code = 3438) Director Distribution ID - Lorenzo Carr comments: Slide comments:HEPATIC [...] (test code = 40 U/L 6-55 347) Director Distribution ID - NTPSpecimen slightly ictericBASIC METABOLIC [id number] 10:09:00 Test Item Value Reference Range Interpretation [...] S NOT APPLICABLE FOR DIALYSIS PATIEN TS. Director Distribution ID - NTPSpecimen slightly ictericPT/YGWI2298-34-28 05:20:00 Test Item Value Reference Range Interpretation [...] is2.5-3.5 for patients wiht mechanical heart valves.PROTHROMBIN TIME/[id number] 05:19:00 Test Item Value Reference Range Interpretation [...] wiht mechanical heart valves.WOUND CULTURE + GRAM [id number] 13:08:00 Test Item Value Reference Interpretation Comments [...] (BEAKER) (test code = cocci in pairs 341251) 4+ Skin floraCOMPREHENSIVE METABOLIC [id number] 04:14:00 Test Item Value Reference Range Interpretation [...] TOTAL (test code = ALKP) COMPREHENSIVE METABOLIC [id number] 04:07:00 Test Item Value Reference Range Interpretation [...] Unit/L 50-136 code = ALKP) CBC W/AUTO [id number] 04:05:00 Test Item Value Reference Range Interpretation [...] = NO DIFF/SCN CRITERIA MDIFF) CBC W/AUTO [id number] 18:44:00 Test Item Value Reference Range Interpretation [...] = NO DIFF/SCN CRITERIA MDIFF) BASIC METABOLIC [id number] 07:26:00 Test Item Value Reference Range Interpretation [...] CA) 7.8 MG/DL 8.5-10.1 L CBC W/AUTO [id number] 07:19:00 Test Item Value Reference Range Interpretation [...] DIFF/SCN CRITERIA MDIFF) - CT ABD PELVIS W/[id number] 20:03:00 Name: FAVIOLA [place] [facility] : 1990 Age/S: 28 / M [address] Unit #: [id number] Loc: [place] [address] Phys: Natalie Bahena MD Acct: [id number] Dis Date: Status: ADM IN PHONE #: [phone] Exam Date: 09/21/20181912 FAX #: Reason: hx of pa ncreatitis, CBD stent, abd pain, melena EXAMS: CPT: [id number] CT ABD PELVIS W/CONT 63245 Dictation location: [facility]. CT ABDOMEN AND PELVIS WITH IV CONTRAST [...] Report (CONTINUED) Name: FAVIOLA [place] : 1990 Age/S: 28 / M [address] Unit #: [id number] Loc: [place] [address] Phys: Natalie Bahena MD Acct: [id number] Dis Date: Status: ADM IN PHONE #: [phone] Exam Date: 09/21/2018 191 FAX #: Reason: hx of pancreatitis, CBD stent, abd pain, melena EXAMS: CPT: [id number] CT ABD PELVIS W/CONT 45543 <Continued> Interval mild thickening involving the sigmoid [...] RT(R)(CT) CTDI: DLP: Trnscb Date/Time: 09/21/2018 (2002) t.JOSHR.SP17 Orig Print D/T: S: 09/21/2018 (2005) PAGE 2 Signed ReportUA RFLX MICR CULT IF [id number] 19:45:00 Test Item Value Reference Range Interpretation [...] culture: Suprapubic PainUA RFLX MICR CULT IF [id number] 19:37:00 Test Item Value Reference Range Interpretation [...] CLEAN CATCHIndication for culture: Suprapubic PainLACTIC ACID [id number] 19:14:00 Test Item Value Reference Range Interpretation Comments LACTIC ACID POC (test code = 0.57 MMOL/L 0.90-1.70 L LACTP) BASIC METABOLIC [id number] 18:25:00 Test Item Value Reference Range Interpretation [...] CA) 8.6 MG/DL 8.5-10.1 N HEPATIC FUNCTION [id number] 18:25:00 Test Item Value Reference Range Interpretation [...] 160 Unit/L 50-136 H code = ALKP) [id number] 18:25:00 Test Item Value Reference Range Interpretation Comments LIPASE (test code = LIP) 164 Unit/L 114-286 N BASIC METABOLIC [id number] 18:22:00 Test Item Value Reference Range Interpretation [...] CA) 8.6 MG/DL 8.5-10.1 N HEPATIC FUNCTION [id number] 18:22:00 Test Item Value Reference Range Interpretation [...] TOTAL (test Unit/L 50-136 code = ALKP) [id number] 18:22:00 Test Item Value Reference Range Interpretation Comments LIPASE (test code = LIP) 164 Unit/L 114-286 N PROTHROMBIN [id number] 18:17:00 Test Item Value Reference Range Interpretation Comments PT PATIENT (test code = PTP) 15.7 SECONDS 9.3-12.9 H INTERNATIONAL NORMAL RATIO 1.36 INR Unit 0.8-1.2 H (test code = INR) THROMBOPLASTIN TIME [id number] 18:17:00 Test Item Value Reference Range Interpretation Comments THROMBOPLASTIN TIME PARTIAL 39.7 SECONDS 26-35 H (test code = PTT) CBC W/O [id number] 18:08:00 Test Item Value Reference Range Interpretation [...] 7.0-9.6 H MPV) - CT ABD PELVIS W/[id number] 19:34:00 Name: FAVIOLA [place] [facility] : 1990 Age/S: 28 / M [address] Unit #: [id number] Loc: [place] [address] Phys: Pola Brush MD Acct: [id number] Dis Date: Status: REG ER PHONE #: [phone] Exam Date: 09/11/2018 1844 FAX #: Reason: abdominal pain EXAMS: CPT: [id number] CT ABD PELVIS W/CONT 28399 EXAM: CT ABDOMEN AND PELVIS WITH IV [...] Signed Report (CONTINUED) Name: FAVIOLA [place] [facility] : 1990 Age/S: 28 / M [address] Unit #: [id number] Loc: [place] [address] Phys: Pola Brush MD Acct: [id number] Dis Date: Status: REG ER PHONE #: [phone] Exam Date: 09/11/2018 1845 FAX #: Reason: abdominal pain EXAMS: CPT: [id number] CT ABD PELVIS W/CONT 17623 <Continued> are unremarkable. Gastrointestinal: No bowel obstruction [...] RT(R)(CT) CTDI: DLP: Trnscb Date/Time: 09/11/2018 (1933) t.SDR.CLW Orig Print D/T: S: 09/11/2018 (1936) PAGE 2 Signed ReportUA RFLX MICR CULT IF [id number] 19:30:00 Test Item Value Reference Range Interpretation [...] for culture: Dysuria/FrequencyUA RFLX MICR CULT IF [id number] 19:30:00 Test Item Value Reference Range Interpretation [...] URINE: CLEAN CATCHIndication for culture: Dysuria/FrequencyBASIC METABOLIC [id number] 18:14:00 Test Item Value Reference Range Interpretation [...] CA) 8.4 MG/DL 8.5-10.1 L HEPATIC FUNCTION [id number] 18:14:00 Test Item Value Reference Range Interpretation [...] 168 Unit/L 50-136 H code = ALKP) [id number] 18:14:00 Test Item Value Reference Range Interpretation Comments LIPASE (test code = LIP) 260 Unit/L 114-286 N BASIC METABOLIC [id number] 18:06:00 Test Item Value Reference Range Interpretation [...] CA) 8.4 MG/DL 8.5-10.1 L HEPATIC FUNCTION [id number] 18:06:00 Test Item Value Reference Range Interpretation [...] TOTAL (test code Unit/L 50-136 = ALKP) [id number] 18:06:00 Test Item Value Reference Range Interpretation Comments LIPASE (test code = LIP) Unit/L 114-286 CBC W/AUTO [id number] 18:02:00 Test Item Value Reference Range Interpretation [...] code = NO DIFF/SCN CRITERIA MDIFF) PROTHROMBIN [id number] 18:02:00 Test Item Value Reference Range Interpretation Comments PT PATIENT (test code = PTP) 16.2 SECONDS 9.3-12.9 H INTERNATIONAL NORMAL RATIO 1.40 INR Unit 0.8-1.2 H (test code = INR) THROMBOPLASTIN TIME [id number] 18:02:00 Test Item Value Reference Range Interpretation Comments THROMBOPLASTIN TIME PARTIAL 30.7 SECONDS 26-35 N (test code = PTT) BLOOD [id number] 02:01:00 Test Item Value Reference Range Interpretation Comments CULTURE (BEAKER) (test No growth in 5 days code = 1095) BLOOD [id number] 20:01:00 Test Item Value Reference Range Interpretation Comments CULTURE (BEAKER) (test No growth in 5 days code = 1095) CBC W/PLT COUNT & AUTO [id number] 05:36:00 Test Item Value Reference Range Interpretation [...] 0-1 PERCENT (BEAKER) (test code = 2801) TISSUE [id number] 15:04:00Surgical Pathology Report Case: [id number] Authorizing Provider: Maliha Gotti MD Collected: 08/29/2018 0932 Ordering Location: [place] [address] ICU Received: 08/29/2018 1318 Pathologist: James Stringer MD Specimen: Polyp, Colon - Transverse, taken by yahaira MCNEAL A TRANSVERSE COLON BIOPSY FOR SUSPECTED POLYP:INFLAMMATORY PSEUDOPOLYP. Signing Pathologist Direct Phone Line: [phone] signed by James Stringer MD on 08/30/2018 at 3:04 PMImmunostains for CMV, HSV1, and HSV2 performed on block A1 are negative.[id number], [id number], [id number] and postop diagnosis: gastrointestinal hemorrhage, unspecified gastrointestinal hemorrhage type Polyp, colon - tr ansverse Received in formalin labeled with the patient's name, accession number and "polyp, colon - transverse" is a 0.2 cm [place] soft tissue fragment which is submitted in toto in A1. CG/pl PERFORMED. The interpretation of this case included the use of immunohistochemistry or special stains.BLOCK A1- CMV, HSV1, [id number] Slides Examined: In-house known positive controls were evaluated along withthe test tissue. These control slides run alongside of the patients sample show appropriate staining. Internal positive and negative controls when available are evaluated Immunohistochemistry technical testing was performed at [facility], Pathology Laboratory where it was developed [...] perform high complexity clinical laboratory testing.HEMOGLOBIN AND [id number] 12:44:00 Test Item Value Reference Range Interpretation Comments HEMOGLOBIN (BEAKER) (test code = 7.7 GM/DL 13.7-17.5 L 410) HEMATOCRIT (BEAKER) (test code = 25.1 % 40.1-51.0 L 411) BASIC METABOLIC [id number] 07:28:00 Test Item Value Reference Range Interpretation [...] S NOT APPLICABLE FOR DIALYSIS PATIEN TS. [id number] 07:13:00 Test Item Value Reference Range Interpretation Comments PHOSPHORUS (BEAKER) (test code = 3.7 mg/dL 2.3-4.7 604) [id number] 07:13:00 Test Item Value Reference Range Interpretation Comments MAGNESIUM (BEAKER) (test code = 2.0 mg/dL 1.6-2.6 627) HEPATIC FUNCTION [id number] 07:13:00 Test Item Value Reference Range Interpretation [...] 6-55 347) CBC W/PLT COUNT & AUTO [id number] 05:45:00 Test Item Value Reference Range Interpretation [...] 0-1 PERCENT (BEAKER) (test code = 2801) [id number] 06:28:00 Test Item Value Reference Range Interpretation Comments PHOSPHORUS (BEAKER) (test code = 4.0 mg/dL 2.3-4.7 604) [id number] 06:28:00 Test Item Value Reference Range Interpretation Comments MAGNESIUM (BEAKER) (test code = 1.9 mg/dL 1.6-2.6 627) HEPATIC FUNCTION [id number] 06:28:00 Test Item Value Reference Range Interpretation [...] = 7 U/L 6-55 347) BASIC METABOLIC [id number] 06:28:00 Test Item Value Reference Range Interpretation [...] PATIEN TS. CBC W/PLT COUNT & AUTO [id number] 05:15:00 Test Item Value Reference Range Interpretation [...] (BEAKER) (test code = 2801) HEMOGLOBIN AND [id number] 16:50:00 Test Item Value Reference Range Interpretation Comments HEMOGLOBIN (BEAKER) (test code = 7.8 GM/DL 13.7-17.5 L 410) HEMATOCRIT (BEAKER) (test code = 24.5 % 40.1-51.0 L 411) TROPONIN [id number] 07:07:00 Test Item Value Reference Range Interpretation [...] failure, acidosis, acute neurological disease, and persistent tachyarrhythmia.[id number] 07:04:00 Test Item Value Reference Range Interpretation Comments PHOSPHORUS (BEAKER) (test code = 3.0 mg/dL 2.3-4.7 604) [id number] 07:04:00 Test Item Value Reference Range Interpretation Comments MAGNESIUM (BEAKER) (test code = 1.7 mg/dL 1.6-2.6 627) BASIC METABOLIC [id number] 07:04:00 Test Item Value Reference Range Interpretation [...] APPLICABLE FOR DIALYSIS PATIEN TS. LACTIC ACID, [id number] 06:58:00 Test Item Value Reference Range Interpretation Comments LACTATE BLOOD VENOUS (2) (BEAKER) 0.7 mmol/L 0.5-2.2 (test code = 2872) HEMOGLOBIN AND [id number] 06:44:00 Test Item Value Reference Range Interpretation Comments HEMOGLOBIN (BEAKER) (test code = 8.2 GM/DL 13.7-17.5 L 410) HEMATOCRIT (BEAKER) (test code = 25.9 % 40.1-51.0 L 411) CBC W/PLT COUNT & AUTO [id number] 06:44:00 Test Item Value Reference Range Interpretation [...] 0-1 PERCENT (BEAKER) (test code = 2801) [facility] [id number] 00:41:00 Test Item Value Reference Range Interpretation [...] acute neurological disease, and persistent tachyarrhythmia.HEMOGLOBIN AND [id number] 00:22:00 Test Item Value Reference Range Interpretation Comments HEMOGLOBIN (BEAKER) (test code = 5.9 GM/DL 13.7-17.5 LL 410) HEMATOCRIT (BEAKER) (test code = 18.8 % 40.1-51.0 L 411) RAD, CHEST, 1 VIEW, NON [id number] 21:37:00Reason for exam:->r/o pulm edemaShould this be [...] lower lobe subsegmental atelectasis. Signed: Debbie [facility]illo [facility] Verified Date/Time: 08/27/2018 21:37:05 Reading Location: [facility] Consult Reading Room ALYSIS W/ REFLEX URINE [id number] 20:28:00 Test Item Value Reference Range Interpretation [...] = 1574) Rare SOURCE(BEAKER) (test code = 9248) TROPONIN [id number] 19:29:00 Test Item Value Reference Range Interpretation [...] acute neurological disease, and persistent tachyarrhythmia.COMPREHENSIVE METABOLIC [id number] 19:21:00 Test Item Value Reference Range Interpretation [...] S NOT APPLICABLE FOR DIALYSIS PATIEN TS. [id number] 19:09:00 Test Item Value Reference Range Interpretation Comments PHOSPHORUS (BEAKER) (test code = 3.6 mg/dL 2.3-4.7 604) [id number] 19:09:00 Test Item Value Reference Range Interpretation Comments MAGNESIUM (BEAKER) (test code = 1.8 mg/dL 1.6-2.6 627) LACTIC ACID, [id number] 19:03:00 Test Item Value Reference Range Interpretation Comments LACTATE BLOOD VENOUS (2) (BEAKER) 0.9 mmol/L 0.5-2.2 (test code = 2872) PROTHROMBIN [id number] 18:53:00 Test Item Value Reference Range Interpretation [...] INR is2.5-3.5 for patients wiht mechanical heart valves.[id number] 18:53:00 Test Item Value Reference Range Interpretation Comments FIBRINOGEN LEVEL (BEAKER) (test 418 mg/dl 225-434 code = 658) CBC W/PLT COUNT & AUTO [id number] 18:48:00 Test Item Value Reference Range Interpretation [...] (BEAKER) (test code = 2801) HEMOGLOBIN AND [id number] 18:44:00 Test Item Value Reference Range Interpretation Comments HEMOGLOBIN (BEAKER) (test code = 6.3 GM/DL 13.7-17.5 L 410) HEMATOCRIT (BEAKER) (test code = 20.6 % 40.1-51.0 L 411) CBC W/PLT COUNT & AUTO [id number] 07:00:00 Test Item Value Reference Range Interpretation [...] PERCENT (BEAKER) (test code = 2801) CALCIUM, [id number] 06:20:00 Test Item Value Reference Range Interpretation Comments CALCIUM IONIZED (BEAKER) (test 1.01 mmol/L 1.12-1.27 L code = 698) PH, BLOOD (BEAKER) (test code = 7.50 1810) COMPREHENSIVE METABOLIC [id number] 06:16:00 Test Item Value Reference Range Interpretation [...] NOT APPLICABLE FOR DIALYSIS PATIEN TS. BLOOD [id number] 20:01:00 Test Item Value Reference Range Interpretation Comments CULTURE (BEAKER) (test No growth in 5 days code = 1095) [id number] 06:17:00 Test Item Value Reference Range Interpretation Comments PHOSPHORUS (BEAKER) (test code = 3.5 mg/dL 2.3-4.7 604) [id number] 06:17:00 Test Item Value Reference Range Interpretation Comments MAGNESIUM (BEAKER) (test code = 1.3 mg/dL 1.6-2.6 L 627) BASIC METABOLIC [id number] 06:17:00 Test Item Value Reference Range Interpretation [...] NOT APPLICABLE FOR DIALYSIS PATIEN TS. CALCIUM, [id number] 05:40:00 Test Item Value Reference Range Interpretation Comments CALCIUM IONIZED (BEAKER) (test 1.02 mmol/L 1.12-1.27 L code = 698) PH, BLOOD (BEAKER) (test code = 7.50 1810) CBC W/PLT COUNT & AUTO [id number] 05:32:00 Test Item Value Reference Range Interpretation [...] (BEAKER) (test code = 2801) COMPREHENSIVE METABOLIC [id number] 07:10:00 Test Item Value Reference Range Interpretation [...] S NOT APPLICABLE FOR DIALYSIS PATIEN TS. [id number] 06:50:00 Test Item Value Reference Range Interpretation Comments MAGNESIUM (BEAKER) (test code = 1.0 mg/dL 1.6-2.6 LL 627) COMPREHENSIVE METABOLIC [id number] 06:33:00 Test Item Value Reference Range Interpretation [...] S NOT APPLICABLE FOR DIALYSIS PATIEN TS. [id number] 06:31:00 Test Item Value Reference Range Interpretation Comments PHOSPHORUS (BEAKER) (test code = 3.3 mg/dL 2.3-4.7 604) CBC W/PLT COUNT & AUTO [id number] 06:23:00 Test Item Value Reference Range Interpretation [...] (BEAKER) (test code = 2801) LACTIC ACID, [id number] 06:22:00 Test Item Value Reference Range Interpretation Comments LACTATE BLOOD VENOUS (2) (BEAKER) 0.8 mmol/L 0.5-2.2 (test code = 2872) CALCIUM, [id number] 06:18:00 Test Item Value Reference Range Interpretation Comments CALCIUM IONIZED (BEAKER) (test 1.01 mmol/L 1.12-1.27 L code = 698) PH, BLOOD (BEAKER) (test code = 7.46 1810) U/S, ABDOMINAL, [id number] 16:51:00Abdomen limited area? Add comment if clarification [...] MDReport Verified Date/Time: 07/28/2018 16:51:39 Reading Location: [address] Reading Room [id number] 06:56:00 Test Item Value Reference Range Interpretation Comments PHOSPHORUS (BEAKER) (test code = 2.6 mg/dL 2.3-4.7 604) [id number] 06:56:00 Test Item Value Reference Range Interpretation Comments MAGNESIUM (BEAKER) (test code = 1.5 mg/dL 1.6-2.6 L 627) BASIC METABOLIC [id number] 06:56:00 Test Item Value Reference Range Interpretation [...] APPLICABLE FOR DIALYSIS PATIEN TS. LACTIC ACID, [id number] 06:49:00 Test Item Value Reference Range Interpretation Comments LACTATE BLOOD VENOUS (2) (BEAKER) 0.7 mmol/L 0.5-2.2 (test code = 2872) CBC W/PLT COUNT & AUTO [id number] 06:31:00 Test Item Value Reference Range Interpretation [...] 0-1 PERCENT (BEAKER) (test code = 2801) [id number] 17:59:00 Test Item Value Reference Range Interpretation Comments PHOSPHORUS (BEAKER) (test code = 3.4 mg/dL 2.3-4.7 604) Check Serum Phosphorus level 4 hours after IV phosphorus replacement or 8 hours after PO replacementcompleted.[id number] 17:59:00 Test Item Value Reference Range Interpretation Comments MAGNESIUM (BEAKER) (test code = 1.7 mg/dL 1.6-2.6 627) Check Serum Phosphorus level 4 hours after IV phosphorus replacement or 8 hours after PO replacementcompleted.[id number] 04:50:00 Test Item Value Reference Range Interpretation Comments PHOSPHORUS (BEAKER) (test code = 1.8 mg/dL 2.3-4.7 L 604) [id number] 04:50:00 Test Item Value Reference Range Interpretation Comments MAGNESIUM (BEAKER) (test code = 1.4 mg/dL 1.6-2.6 L 627) BASIC METABOLIC [id number] 04:50:00 Test Item Value Reference Range Interpretation [...] PATIEN TS. CBC W/PLT COUNT & AUTO [id number] 04:45:00 Test Item Value Reference Range Interpretation [...] PERCENT (BEAKER) (test code = 2801) [place], [id number] 22:28:00Reason for exam:->bile duct stent removalFINAL REPORT Examination: ERCP 4 fluoroscopic spot views were obtained during the procedure by the ordering service. Images are nondiagnostic as no radiologist was present at the time of imaging. Fluoroscopic time was 49.6 seconds. Please see the procedure report for details. Signed: Rosalia Golden MDReport Verified Date/Time: 07/26/2018 22:28:43 Reading Location: [address] Reading Room POCT-GLUCOSE [id number] 20:43:00 Test Item Value Reference Range Interpretation Comments POC-GLUCOSE METER 146 mg/dL 70-110 H TESTED AT [facility] 6720 (BEAKER) (test code = [place] 1538) [address] RAPID STREP A [id number] 18:22:00 Test Item Value Reference Range Interpretation Comments STREP A ANTIGEN (BEAKER) (test code Negative = 556) COMPREHENSIVE METABOLIC [id number] 17:37:00 Test Item Value Reference Range Interpretation [...] PATIEN TS. CBC W/PLT COUNT & AUTO [id number] 17:16:00 Test Item Value Reference Range Interpretation [...] PERCENT (BEAKER) (test code = 2801) POCT-GLUCOSE [id number] 12:06:00 Test Item Value Reference Range Interpretation Comments POC-GLUCOSE METER 132 mg/dL 70-110 H TESTED AT [place] [address] ([facility]) (test code = [facility] 1538) [address] POCT-GLUCOSE [id number] 08:57:00 Test Item Value Reference Range Interpretation Comments POC-GLUCOSE METER 80 mg/dL 70-110 TESTED AT [place] [address] ([facility]) (test code = [facility] [address]38) BASIC METABOLIC [id number] 06:35:00 Test Item Value Reference Range Interpretation [...] NOT APPLICABLE FOR DIALYSIS PATIEN TS. POCT-GLUCOSE [id number] 22:36:00 Test Item Value Reference Range Interpretation Comments POC-GLUCOSE METER 72 mg/dL 70-110 TESTED AT [place] [address] ([facility]) (test code = [facility] [address] 1538) POCT-GLUCOSE [id number] 12:21:00 Test Item Value Reference Range Interpretation Comments POC-GLUCOSE METER 82 mg/dL 70-110 TESTED AT [facility] 6720 ([facility]) (test code = CHANTE Mohamud [facility] [address]) BASIC METABOLIC [id number] 09:30:00 Test Item Value Reference Range Interpretation [...] NOT APPLICABLE FOR DIALYSIS PATIEN TS. POCT-GLUCOSE [id number] 08:42:00 Test Item Value Reference Range Interpretation Comments POC-GLUCOSE METER 85 mg/dL 70-110 TESTED AT [facility] 6720 (BEAKER) (test code = CHANTE Mohamud [facility] [address]38) POCT-GLUCOSE [id number] 21:33:00 Test Item Value Reference Range Interpretation Comments POC-GLUCOSE METER 106 mg/dL 70-110 TESTED AT [facility] 6720 (BEAKER) (test code = [facility] Cade [facility] 1538) [address] POCT-GLUCOSE [id number] 17:42:00 Test Item Value Reference Range Interpretation Comments POC-GLUCOSE METER 95 mg/dL 70-110 TESTED AT [facility] 6720 (BEAKER) (test code = [facility] Cade [facility] [address] 1538) [id number] 14:42:00 Test Item Value Reference Range Interpretation Comments POTASSIUM (BEAKER) 3.7 meq/L 3.5-5.1 Specimen slightly (test code = 379) hemolyzed Check Serum Potassium level 2 hours after oral potassium replacement completed or 30 min after intravenous potassium replacement.POCT-GLUCOSE [id number] 11:45:00 Test Item Value Reference Range Interpretation Comments POC-GLUCOSE METER 151 mg/dL 70-110 H TESTED AT [facility] 6720 (BEAKER) (test code = [place]TE [place]amud [place] 1538) [address] POCT-GLUCOSE [id number] 09:45:00 Test Item Value Reference Range Interpretation Comments POC-GLUCOSE METER 127 mg/dL 70-110 H TESTED AT [facility] 6720 (BEAKER) (test code = CH[place]TE Moh[place]ud [place] 1538) [address] BLOOD [id number] 08:00:00 Test Item Value Reference Range Interpretation Comments CULTURE (BEAKER) (test No growth in 5 days code = 1095) BLOOD [id number] 08:00:00 Test Item Value Reference Range Interpretation Comments CULTURE (BEAKER) (test No growth in 5 days code = 1095) BASIC METABOLIC [id number] 06:48:00 Test Item Value Reference Range Interpretation [...] S NOT APPLICABLE FOR DIALYSIS PATIEN TS. [id number] 06:46:00 Test Item Value Reference Range Interpretation Comments PHOSPHORUS (BEAKER) (test code = 3.5 mg/dL 2.3-4.7 604) [id number] 06:46:00 Test Item Value Reference Range Interpretation Comments MAGNESIUM (BEAKER) (test code = 1.7 mg/dL 1.6-2.6 627) CALCIUM, [id number] 06:45:00 Test Item Value Reference Range Interpretation Comments CALCIUM IONIZED (BEAKER) (test 1.00 mmol/L 1.12-1.27 L code = 698) PH, BLOOD (BEAKER) (test code = 7.52 1810) POCT-GLUCOSE [id number] 21:56:00 Test Item Value Reference Range Interpretation Comments POC-GLUCOSE METER 112 mg/dL 70-110 H TESTED AT [place] [address] ([facility]) (test code = [facility] 1538) [address] POCT-GLUCOSE [id number] 17:46:00 Test Item Value Reference Range Interpretation Comments POC-GLUCOSE METER 86 mg/dL 70-110 TESTED AT [place] [address] ([facility]) (test code = [facility] [address]38) POCT-GLUCOSE [id number] 11:20:00 Test Item Value Reference Range Interpretation Comments POC-GLUCOSE METER 164 mg/dL 70-110 H TESTED AT [place] [address] ([facility]) (test code = [facility] 1538) [address] POCT-GLUCOSE [id number] 08:57:00 Test Item Value Reference Range Interpretation Comments POC-GLUCOSE METER 88 mg/dL 70-110 TESTED AT [place] [address] ([facility]) (test code = [facility] [address]38) CALCIUM, [id number] 05:14:00 Test Item Value Reference Range Interpretation Comments CALCIUM IONIZED (BEAKER) (test 1.12 mmol/L 1.12-1.27 code = 698) PH, BLOOD (BEAKER) (test code = 7.43 1810) BASIC METABOLIC [id number] 04:59:00 Test Item Value Reference Range Interpretation [...] S NOT APPLICABLE FOR DIALYSIS PATIEN TS. [id number] 04:57:00 Test Item Value Reference Range Interpretation Comments MAGNESIUM (BEAKER) (test code = 1.8 mg/dL 1.6-2.6 627) [id number] 04:56:00 Test Item Value Reference Range Interpretation Comments PHOSPHORUS (BEAKER) (test code = 3.4 mg/dL 2.3-4.7 604) [id number] 04:54:00 Test Item Value Reference Range Interpretation [...] is2.5-3.5 for patients wiht mechanical heart valves.PROTHROMBIN [id number] 04:52:00 Test Item Value Reference Range Interpretation [...] mechanical heart valves.CBC W/PLT COUNT & AUTO [id number] 04:47:00 Test Item Value Reference Range Interpretation [...] LYMPHOCYTES ABSOLUTE COUNT 1.88 K/ L 1.32-3.57 (AKER) (test code = 414) MONOCYTES ABSOLUTE COUNT (BEAKER) 0.60 K/ L 0.30-0.82 (test code = 415) EOSINOPHILS ABSOLUTE COUNT 0.00 K/ L 0.04-0.54 L (AKER) (test code = 416) BASOPHILS ABSOLUTE COUNT (AKER) 0.00 K/ L 0.01-0.08 L (test code = 417) IMMATURE GRANULOCYTES-RELATIVE 1 % 0-1 PERCENT ([facility]) (test code = 2801) POCT-GLUCOSE [id number] 22:08:00 Test Item Value Reference Range Interpretation Comments POC-GLUCOSE METER 133 mg/dL 70-110 H TESTED AT [place] [address] ([facility]) (test code = [facility] 1538) [address] POCT-GLUCOSE [id number] 18:34:00 Test Item Value Reference Range Interpretation Comments POC-GLUCOSE METER 151 mg/dL 70-110 H TESTED AT [place] [address] ([facility]) (test code = [facility] 1538) [address] POCT-GLUCOSE [id number] 12:29:00 Test Item Value Reference Range Interpretation Comments POC-GLUCOSE METER 124 mg/dL 70-110 H TESTED AT [place] [address] ([facility]) (test code = [facility] 1538) [address] RAD, CHEST, 1 VIEW, NON [id number] 10:57:00Reason for exam:->SOBShould this be performed at [...] MDReport Verified Date/Time: 07/15/2018 10:57:23 Reading Location: [facility] Radiology Reading Room C. DIFFICILE GDH [id number] 10:08:00 Test Item Value Reference Range Interpretation Comments CDT TOXIN (test code Negative Negative = 0586948828) CDT GDH ANTIGEN (test Negative Negative No ind ication of code = 1422400390) Clostridi um difficile infection and n o colonization. Discontinue ent starla isolation and t herapy. Testing performed by [employer] Rapid Cassette Assay. For GDH, published sensitivity of the assay is 98.7% compared to cytotoxicity testing. For Toxin AB, published sensitivity is 87.8% and specificity 99.4% compared to cytotoxicity testing.Verification of kit performance was done by the [facility] Microbiology Lab prior to clinical use.POCT-GLUCOSE [id number] 08:57:00 Test Item Value Reference Range Interpretation Comments POC-GLUCOSE METER 159 mg/dL 70-110 H TESTED AT [facility] 6720 (BEAKER) (test code = [place] 1538) [address] BLOOD [id number] 08:01:00 Test Item Value Reference Range Interpretation Comments CULTURE (BEAKER) (test No growth in 5 days code = 1095) BLOOD [id number] 08:01:00 Test Item Value Reference Range Interpretation Comments CULTURE (BEAKER) (test No growth in 5 days code = 1095) BASIC METABOLIC [id number] 04:49:00 Test Item Value Reference Range Interpretation [...] S NOT APPLICABLE FOR DIALYSIS PATIEN TS. [id number] 04:29:00 Test Item Value Reference Range Interpretation Comments PHOSPHORUS (BEAKER) (test code = 2.7 mg/dL 2.3-4.7 604) [id number] 04:29:00 Test Item Value Reference Range Interpretation Comments MAGNESIUM (BEAKER) (test code = 2.2 mg/dL 1.6-2.6 627) CBC W/PLT COUNT & AUTO [id number] 04:14:00 Test Item Value Reference Range Interpretation [...] PERCENT (BEAKER) (test code = 2801) CALCIUM, [id number] 03:58:00 Test Item Value Reference Range Interpretation Comments CALCIUM IONIZED (BEAKER) (test 1.11 mmol/L 1.12-1.27 L code = 698) PH, BLOOD (BEAKER) (test code = 7.41 1810) POCT-GLUCOSE [id number] 23:20:00 Test Item Value Reference Range Interpretation Comments POC-GLUCOSE METER 208 mg/dL 70-110 H TESTED AT [facility] 6720 (BEAKER) (test code = [place] 1538) [address] BASIC METABOLIC [id number] 18:01:00 Test Item Value Reference Range Interpretation [...] S NOT APPLICABLE FOR DIALYSIS PATIEN TS. [id number] 18:00:00 Test Item Value Reference Range Interpretation Comments TRIGLYCERIDES (BEAKER) (test code = 125 mg/dL 540) TRIGLYCERIDE REFERENCE RANGELow Risk <150Borderline Risk 150-199High Risk 200-499Very High Risk>=[id number] 18:00:00 Test Item Value Reference Range Interpretation Comments MAGNESIUM (BEAKER) (test code = 1.6 mg/dL 1.6-2.6 627) CALCIUM, [id number] 17:46:00 Test Item Value Reference Range Interpretation Comments CALCIUM IONIZED (BEAKER) (test 1.13 mmol/L 1.12-1.27 code = 698) PH, BLOOD (BEAKER) (test code = 7.41 1810) POCT-GLUCOSE [id number] 17:45:00 Test Item Value Reference Range Interpretation Comments POC-GLUCOSE METER 173 mg/dL 70-110 H TESTED AT [facility] 67 (BEAKER) (test code = [facility] 1538) [address] POCT-GLUCOSE [id number] 11:46:00 Test Item Value Reference Range Interpretation Comments POC-GLUCOSE METER 163 mg/dL 70-110 H TESTED AT [place] [address] ([facility]) (test code = [facility] 1538) [address] BASIC METABOLIC [id number] 09:43:00 Test Item Value Reference Range Interpretation [...] APPLICABLE FOR DIALYSIS PATIEN TS. HEPATIC FUNCTION [id number] 09:43:00 Test Item Value Reference Range Interpretation [...] = < U/L 6-55 L 347) CALCIUM, [id number] 09:39:00 Test Item Value Reference Range Interpretation Comments CALCIUM IONIZED (BEAKER) (test 1.07 mmol/L 1.12-1.27 L code = 698) PH, BLOOD (BEAKER) (test code = 7.44 1810) [id number] 09:26:00 Test Item Value Reference Range Interpretation Comments PHOSPHORUS (BEAKER) (test code = 2.3 mg/dL 2.3-4.7 604) [id number] 09:26:00 Test Item Value Reference Range Interpretation Comments MAGNESIUM (BEAKER) (test code = 1.2 mg/dL 1.6-2.6 L 627) CBC W/PLT COUNT & AUTO [id number] 09:07:00 Test Item Value Reference Range Interpretation [...] PERCENT (BEAKER) (test code = 2801) POCT-GLUCOSE [id number] 06:10:00 Test Item Value Reference Range Interpretation Comments POC-GLUCOSE METER 170 mg/dL 70-110 H TESTED AT [facility] 6720 (BEAKER) (test code = [place]ANTE [place] 1538) [id number] POCT-GLUCOSE [id number] 23:12:00 Test Item Value Reference Range Interpretation Comments POC-GLUCOSE METER 200 mg/dL 70-110 H TESTED AT [place] [address] ([facility]) (test code = CHANTE [place] 1538) [id number] POCT-GLUCOSE [id number] 18:28:00 Test Item Value Reference Range Interpretation Comments POC-GLUCOSE METER 153 mg/dL 70-110 H TESTED AT [place] [address] ([facility]) (test code = CHANTE Mohamud [facility] 1538) [address] RAD, CHEST, 1 VIEW, NON [id number] 17:19:00Reason for exam:->post central lineShould this be [...] the right atrium withno pneumothorax. Signed: Perez Brioneseport Verified Date/Time: 07/13/2018 17:19:17 Reading Location: [address] Ortho Consult Reading Room POCT- GLUCOSE [id number] 11:45:00 Test Item Value Reference Range Interpretation Comments POC-GLUCOSE METER 214 mg/dL 70-110 H TESTED AT [place] [address] ([facility]) (test code = CHANTE Mohamud [facility] 1538) [address] CT, [id number] 09:34:00NO PO or IV contrastFINAL REPORT CT [...] [place] Verified Date/Time: 07/13/2018 09:34:48 Reading Location: [address] Reading Room POCT-GLUCOSE [id number] 06:40:00 Test Item Value Reference Range Interpretation Comments POC-GLUCOSE METER 189 mg/dL 70-110 H TESTED AT [place] [address] ([facility]) (test code = CHANTE Mohamud [facility] 1538) [address] RAD, CHEST, 1 VIEW, NON [id number] 01:21:00Reason for exam:->hypoxia, feverShould this be performed [...] Mota Verified Date/Time: 07/13/2018 01:21:43 Reading Location: [address] Reading Room RAD, CHEST, 1 VIEW, NON [id number] 00:42:00Reason for exam:- >tachycardiaShould this be performed [...] METER 139 mg/dL 70-110 H TESTED AT [facility] 67 ([facility]) (test code = [place] 1538) [address] POCT-GLUCOSE [id number] 18:37:00 Test Item Value Reference Range Interpretation Comments POC-GLUCOSE METER 108 mg/dL 70-110 TESTED AT [place] [address] ([facility]) (test code = CHANTE Mohamud [facility] 1538) [address] LACTIC ACID, [id number] 17:04:00 Test Item Value Reference Range Interpretation Comments LACTATE BLOOD VENOUS (2) ([facility]) 0.7 mmol/L 0.5-2.2 (test code = 2872) POCT-GLUCOSE [id number] 13:25:00 Test Item Value Reference Range Interpretation Comments POC-GLUCOSE METER 129 mg/dL 70-110 H TESTED AT [place] [address] ([facility]) (test code = CHANTE Mohamud [facility] 1538) [address] POCT-GLUCOSE [id number] 10:27:00 Test Item Value Reference Range Interpretation Comments POC-GLUCOSE METER 109 mg/dL 70-110 TESTED AT [place] [address] ([facility]) (test code = [facility] [place] [address]) [address] LACTIC ACID, [id number] 07:03:00 Test Item Value Reference Range Interpretation Comments LACTATE BLOOD VENOUS 0.9 mmol/L 0.5-2.2 Specime n slightly (2) ([facility]) (test hemolyzed code = 2872) RAD, ABDOMEN/KUB, 1 VIEW [id number] 02:12:00Reason for exam:->UPRIGHT assess for perf; abdomoinal [...] [place] Verified Date/Time: 07/12/2018 02:12:57 POCT-LACTIC ACID, [id number] 02:11:00 Test Item Value Reference Range Interpretation Comments POC-LACTIC ACID, 1.5 mmol/L 0.9-1.7 TESTED AT [place] [address] VENOUS (BEAKER) (test [facility] Cade [facility] code = 2805) [address] [id number] 02:11:00 Test Item Value Reference Range Interpretation Comments POC-GLUCOSE (BEAKER) 106 mg/dL 70-110 TESTED AT [place] [address] (test code = 1855) [facility] [address] POCT-CALCIUM [id number] 02:11:00 Test Item Value Reference Range Interpretation Comments POC-CALCIUM IONIZED 1.15 mmol/L 1.12-1.27 TESTED A T [place] [address] ([facility]) (test code = [facility] 1536) [address] [id number] 02:11:00 Test Item Value Reference Range Interpretation Comments POC-HEMATOCRIT 37 % 40-50 L TESTED AT [place] [address] ([facility]) (test code = [facility] [address] 1857) [id number] 02:11:00 Test Item Value Reference Range Interpretation Comments POC-HEMOGLOBIN 12.6 g/dL 13.0-16.8 L TESTED AT [place] [address] ([facility]) (test code [facility] = 1856) [address]OOSRZB AT [place] [address] [facility] [address] POCT-BLOOD GASES, [id number] 02:10:00 Test Item Value Reference Range Interpretation Comments TEMP, CELSIUS-POC 38.4 (BEAKER) (test code = 1834) FIO2-POC (BEAKER) 21 TESTED AT [place] [address] (test code = 1835) [facility] [place] [address] PH, VENOUS-POC 7.362 7.320-7.420 (BEAKER) (test code = 1842) PCO2, VENOUS-POC 50.1 mm Hg 41.0-51.0 (AKER) (test code = 1843) PO2, VENOUS-POC 21.0 mm Hg 25.0-40.0 L (BEAKER) (test code = 1844) SO2, VENOUS-POC 29.0 % 40.0-70.0 L (BEAKER) (test code = 1845) HCO3, VENOUS-POC 28.0 meq/L 21.0-29.0 (BEAKER) (test code = 1846) BASE EXCESS, 3.0 meq/L -2.0-3.0 VENOUS-POC (BEAKER) (test code = 1847) [id number] 02:10:00 Test Item Value Reference Range Interpretation Comments POC-SODIUM (BEAKER) 139 meq/L 135-148 TESTED A T [facility] 6720 (test code = 1542) [place] [address] [id number] 02:10:00 Test Item Value Reference Range Interpretation Comments POC-POTASSIUM 3.7 meq/L 3.6-5.5 TESTED AT [facility] 6720 (BEAKER) ([place] [address] = 1540) HEPATIC FUNCTION [id number] 02:04:00 Test Item Value Reference Range Interpretation [...] = 8 U/L 6-55 347) BASIC METABOLIC [id number] 02:04:00 Test Item Value Reference Range Interpretation [...] PATIEN TS. CBC W/PLT COUNT & AUTO [id number] 02:03:00 Test Item Value Reference Range Interpretation [...] 417) IMMATURE GRANULOCYTES-RELATIVE 0 % 0-1 PERCENT (AKER) (test code = 2801) POCT-GLUCOSE [id number] 00:17:00 Test Item Value Reference Range Interpretation Comments POC-GLUCOSE METER 137 mg/dL 70-110 H TESTED AT [place] [address] ([facility]) (test code = [facility] 1538) [address] POCT-GLUCOSE [id number] 18:14:00 Test Item Value Reference Range Interpretation Comments POC-GLUCOSE METER 106 mg/dL 70-110 TESTED AT [place] [address] ([facility]) (test code = [facility] 1538) [address] VANCOMYCIN LEVEL, [id number] 14:20:00 Test Item Value Reference Range Interpretation Comments VANCOMYCIN TROUGH ([facility]) (test 7.1 ug/mL 10.0-20.0 L code = 522) If vancomycin trough level > 20 mcg/mL, hold next vancomycin dose, and contact MD and pharmacist.POCT-GLUCOSE [id number] 13:10:00 Test Item Value Reference Range Interpretation Comments POC-GLUCOSE METER 155 mg/dL 70-110 H TESTED AT [place] [address] ([facility]) (test code = [facility] 1538) [address] HEPATIC FUNCTION [id number] 06:51:00 Test Item Value Reference Range Interpretation Comments TOTAL PROTEIN ([facility]) (test code = 6.5 gm/dL 6.0-8.3 770) [...] = 11 U/L 6-55 347) BASIC METABOLIC [id number] 06:51:00 Test Item Value Reference Range Interpretation [...] PATIEN TS. CBC W/PLT COUNT & AUTO [id number] 05:32:00 Test Item Value Reference Range Interpretation [...] 0-1 PERCENT (BEAKER) (test code = 2801) [id number] 11:08:00 Test Item Value Reference Range Interpretation Comments PARTIAL THROMBOPLASTIN TIME 47.0 seconds 22.5-36.0 H (BEAKER) (test code = 760) PROTHROMBIN [id number] 11:07:00 Test Item Value Reference Range Interpretation [...] for patients wiht mechanical heart valves.HEPATIC FUNCTION [id number] 01:46:00 Test Item Value Reference Range Interpretation [...] = 16 U/L 6-55 347) BASIC METABOLIC [id number] 01:46:00 Test Item Value Reference Range Interpretation [...] PATIEN TS. CBC W/PLT COUNT & AUTO [id number] 01:19:00 Test Item Value Reference Range Interpretation [...] (BEAKER) (test code = 2801) BETA-2 GLYCOPROTEIN [id number] 08:02:00 Test Item Value Reference Range Interpretation Comments B2 GLYCOPROTEIN Refer to individual AUTOVERIFICATION COMPONENT B2-Glycoprotein (test code = 2557) IgG, IgM and IgA results. [id number] 07:34:00 Test Item Value Reference Range Interpretation Comments MAGNESIUM (BEAKER) (test code = 1.6 mg/dL 1.6-2.6 627) BASIC METABOLIC [id number] 07:34:00 Test Item Value Reference Range Interpretation [...] APPLICABLE FOR DIALYSIS PATIEN TS. HEPATIC FUNCTION [id number] 07:34:00 Test Item Value Reference Range Interpretation [...] (test code = 41 U/L 6-55 347) [id number] 07:23:00 Test Item Value Reference Range Interpretation [...] 2801) LUPUS ANTICOAGULANT SCREEN WITH REFLEX TO [id number] 09:29:00 Test Item Value Reference Range Interpretation Comments DRVV SCREEN RATIO 1.39 <1.20 H (BEAKER) (test code = 2707) DRVV CONFIRM RATIO 1.21 (test code = 2709) DRVV INTERPRETATION Positive screen for (BEAKER) (test code = Lupus Anticoagulant 2406) with hexagonal phospholipid confirmation. Suggest repeat testing in 12 weeks and when patient not receiving anticoagulant therapy. PROTIME (BEAKER) (test 19.6 seconds 11.7-14.7 H code = 759) INR (BEAKER) (test code 1.7 <=5.9 = 370) PARTIAL THROMBOPLASTIN 57.5 seconds 22.5-36.0 H TIME (BEAKER) (test code = 760) PTT-LA (BEAKER) (test 61.5 32.0-41.8 H code = 5234920590) [id number] Christy Smith MD (BEAKER) (test code = (electronic signature) 0028) [id number] 08:06:00 Test Item Value Reference Range Interpretation Comments MAGNESIUM (BEAKER) (test code = 1.7 mg/dL 1.6-2.6 627) BASIC METABOLIC [id number] 08:06:00 Test Item Value Reference Range Interpretation [...] APPLICABLE FOR DIALYSIS PATIEN TS. HEPATIC FUNCTION [id number] 08:06:00 Test Item Value Reference Range Interpretation [...] 6-55 347) CBC W/PLT COUNT & AUTO [id number] 07:58:00 Test Item Value Reference Range Interpretation [...] PERCENT (BEAKER) (test code = 2801) PROTHROMBIN [id number] 07:26:00 Test Item Value Reference Range Interpretation Comments PROTIME (BEAKER) (test code = 14.5 seconds 11.7-14.7 759) INR (BEAKER) (test code = 370) 1.2 <=5.9 RECOMMENDED COUMADIN/WARFARIN INR THERAPY RANGESSTANDARD DOSE: 2.0 - 3.0 Includes: PROPHYLAXIS forvenous thrombosis, systemic embolization; TREATMENT for venous thrombosis and/or pulmonary embolus.HIGH RISK: Target INR is 2.5-3.5 for patients with mechanical heart valves.[id number] 07:26:00 Test Item Value Reference Range Interpretation [...] 2.5-3.5 for patients with mechanical heart valves.HEXAGONAL [id number] 14:07:00 Test Item Value Reference Range Interpretation Comments HEXAGONAL PHOSPHOLIPID (BEAKER) Positive (test code = 1790) 1:1 MIXING STUDY, [id number] 09:07:00 Test Item Value Reference Range Interpretation Comments PROTIME (BEAKER) (test code = 19.6 seconds 11.7-14.7 H 759) PARTIAL THROMBOPLASTIN TIME 57.5 seconds 22.5-36.0 H (BEAKER) (test code = 760) PT 1/1 MIX (BEAKER) (test code = 14.4 SECS 11.7-14.7 1595) PTT 1/1 MIX (BEAKER) (test code 41.9 SECS 22.5-36.0 H = 1596) [id number] 07:05:00 Test Item Value Reference Range Interpretation [...] 2.5-3.5 for patients with mechanical heart valves.PROTHROMBIN [id number] 07:04:00 Test Item Value Reference Range Interpretation Comments PROTIME (BEAKER) (test code = 16.9 seconds 11.7-14.7 H 759) INR (BEAKER) (test code = 370) 1.4 <=5.9 RECOMMENDED COUMADIN/WARFARIN INR THERAPY RANGESSTANDARD DOSE: 2.0 - 3.0 Includes: PROPHYLAXIS forvenous thrombosis, systemic embolization; TREATMENT for venous thrombosis and/or pulmonary embolus.HIGH RISK: Target INR is 2.5-3.5 for patients with mechanical heart valves.[id number] 06:49:00 Test Item Value Reference Range Interpretation Comments MAGNESIUM (BEAKER) (test code = 1.7 mg/dL 1.6-2.6 627) BASIC METABOLIC [id number] 06:49:00 Test Item Value Reference Range Interpretation [...] APPLICABLE FOR DIALYSIS PATIEN TS. HEPATIC FUNCTION [id number] 06:49:00 Test Item Value Reference Range Interpretation [...] 6-55 347) CBC W/PLT COUNT & AUTO [id number] 06:36:00 Test Item Value Reference Range Interpretation [...] code = 2801) CARDIOLIPIN ANTIBODIES, IGG AND [id number] 06:24:00 Test Item Value Reference Range Interpretation Comments ANTICARDIOLIPIN IGG ANTIBODY (BEAKER) < GPL <20.0 (test code = 712) ANTICARDIOLIPIN IGM ANTIBODY (BEAKER) 0.2 MPL <20.0 (test code = 713) Anticardiolipin IgG Result Interpretation: <20.0 GPL Normal>/= 20.0 GPL PositiveAnticardiolipin IgM Result Interpretation: <20.0 MPL Normal>/= 20.0 MPL PositiveTHROMBIN [id number] 13:45:00 Test Item Value Reference Range Interpretation Comments THROMBIN TIME (BEAKER) (test code = 17.2 secs 13.8-20.0 550) [id number] 12:46:00 Test Item Value Reference Range Interpretation Comments FIBRINOGEN LEVEL (BEAKER) (test 762 mg/dl 225-434 H code = 658) [id number] 10:48:00 Test Item Value Reference Range Interpretation Comments MAGNESIUM (BEAKER) (test code = 1.7 mg/dL 1.6-2.6 627) BASIC METABOLIC [id number] 10:48:00 Test Item Value Reference Range Interpretation [...] APPLICABLE FOR DIALYSIS PATIEN TS. HEPATIC FUNCTION [id number] 10:48:00 Test Item Value Reference Range Interpretation [...] (test code = 50 U/L 6-55 347) [id number] 06:40:00 Test Item Value Reference Range Interpretation [...] 2.5-3.5 for patients with mechanical heart valves.PROTHROMBIN TIME/[id number] 06:39:00 Test Item Value Reference Range Interpretation [...] 0-1 PERCENT (BEAKER) (test code = 2801) [id number] 06:48:00 Test Item Value Reference Range Interpretation Comments MAGNESIUM (BEAKER) (test code = 1.9 mg/dL 1.6-2.6 627) BASIC METABOLIC [id number] 06:48:00 Test Item Value Reference Range Interpretation [...] APPLICABLE FOR DIALYSIS PATIEN TS. HEPATIC FUNCTION [id number] 06:48:00 Test Item Value Reference Range Interpretation [...] (test code = 50 U/L 6-55 347) [id number] 06:31:00 Test Item Value Reference Range Interpretation [...] 2.5-3.5 for patients with mechanical heart valves.PROTHROMBIN [id number] 06:30:00 Test Item Value Reference Range Interpretation [...] = 2801) RAD, CHEST, 1 VIEW, NON [id number] 18:34:00Reason for exam:->SOBShould this be performed at [...] [place]eport Verified Date/Time: 06/11/2018 18:34:14 Reading Location: [address] Consult Reading Room B-TYPE NATRIURETIC FACTOR (BNP)2018-06-11 15:45:00 Test Item Value Reference Range Interpretation Comments B-TYPE NATRIURETIC PEPTIDE (BEAKER) < pg/mL 0-100 (test code = 700) [id number] 06:36:00 Test Item Value Reference Range Interpretation [...] 2.5-3.5 for patients with mechanical heart valves.PROTHROMBIN [id number] 06:35:00 Test Item Value Reference Range Interpretation Comments PROTIME (BEAKER) (test code = 21.5 seconds 11.7-14.7 H 759) INR (BEAKER) (test code = 370) 2.0 <=5.9 RECOMMENDED COUMADIN/WARFARIN INR THERAPY RANGESSTANDARD DOSE: 2.0 - 3.0 Includes: PROPHYLAXIS forvenous thrombosis, systemic embolization; TREATMENT for venous thrombosis and/or pulmonary embolus.HIGH RISK: Target INR is 2.5-3.5 for patients with mechanical heart valves.[id number] 06:29:00 Test Item Value Reference Range Interpretation Comments MAGNESIUM (BEAKER) 1.9 mg/dL 1.6-2.6 Specimen slightly (test code = 627) hemolyzed BASIC METABOLIC [id number] 06:29:00 Test Item Value Reference Range Interpretation [...] APPLICABLE FOR DIALYSIS PATIEN TS. HEPATIC FUNCTION [id number] 06:29:00 Test Item Value Reference Range Interpretation [...] 347) hemolyzed CBC W/PLT COUNT & AUTO [id number] 06:00:00 Test Item Value Reference Range Interpretation [...] = 2801) BODY FLUID CULTURE + GRAM [id number] 18:11:00 Test Item Value Reference Range Interpretation Comments CULTURE (BEAKER) (test No growth code = 1095) GRAM STAIN RESULT <1+ White blood cells (BEAKER) (test code = seen 1123) GRAM STAIN RESULT No organisms seen (BEAKER) (test code = 90668) [id number] 07:01:00 Test Item Value Reference Range Interpretation Comments MAGNESIUM (BEAKER) (test code = 1.9 mg/dL 1.6-2.6 627) BASIC METABOLIC [id number] 07:01:00 Test Item Value Reference Range Interpretation [...] APPLICABLE FOR DIALYSIS PATIEN TS. HEPATIC FUNCTION [id number] 07:01:00 Test Item Value Reference Range Interpretation [...] code = 66 U/L 6-55 H 347) [id number] 06:32:00 Test Item Value Reference Range Interpretation [...] PERCENT (BEAKER) (test code = 2801) BLOOD [id number] 22:01:00 Test Item Value Reference Range Interpretation Comments CULTURE (BEAKER) (test No growth in 5 days code = 1095) BLOOD [id number] 22:01:00 Test Item Value Reference Range Interpretation Comments CULTURE (BEAKER) (test No growth in 5 days code = 1095) [id number] 07:20:00 Test Item Value Reference Range Interpretation [...] 0-1 PERCENT (BEAKER) (test code = 2801) [id number] 07:08:00 Test Item Value Reference Range Interpretation Comments MAGNESIUM (BEAKER) (test code = 2.1 mg/dL 1.6-2.6 627) BASIC METABOLIC [id number] 07:08:00 Test Item Value Reference Range Interpretation [...] APPLICABLE FOR DIALYSIS PATIEN TS. HEPATIC FUNCTION [id number] 07:08:00 Test Item Value Reference Range Interpretation [...] = 69 U/L 6-55 H 347) PROTHROMBIN [id number] 06:54:00 Test Item Value Reference Range Interpretation Comments PROTIME (BEAKER) (test code = 21.3 seconds 11.7-14.7 H 759) INR (BEAKER) (test code = 370) 2.0 <=5.9 RECOMMENDED COUMADIN/WARFARIN INR THERAPY RANGESSTANDARD DOSE: 2.0 - 3.0 Includes: PROPHYLAXIS forvenous thrombosis, systemic embolization; TREATMENT for venous thrombosis and/or pulmonary embolus.HIGH RISK: Target INR is 2.5-3.5 for patients with mechanical heart valves.[id number] 06:24:00 Test Item Value Reference Range Interpretation Comments MAGNESIUM (BEAKER) (test code = 2.0 mg/dL 1.6-2.6 627) BASIC METABOLIC [id number] 06:24:00 Test Item Value Reference Range Interpretation [...] APPLICABLE FOR DIALYSIS PATIEN TS. HEPATIC FUNCTION [id number] 06:24:00 Test Item Value Reference Range Interpretation [...] H 347) CBC W/PLT COUNT & AUTO [id number] 06:17:00 Test Item Value Reference Range Interpretation [...] PERCENT (BEAKER) (test code = 2801) PROTHROMBIN [id number] 05:39:00 Test Item Value Reference Range Interpretation Comments PROTIME (BEAKER) (test code = 22.4 seconds 11.7-14.7 H 759) INR (BEAKER) (test code = 370) 2.1 <=5.9 RECOMMENDED COUMADIN/WARFARIN INR THERAPY RANGESSTANDARD DOSE: 2.0 - 3.0 Includes: PROPHYLAXIS forvenous thrombosis, systemic embolization; TREATMENT for venous thrombosis and/or pulmonary embolus.HIGH RISK: Target INR is 2.5-3.5 for patients with mechanical heart valves.[id number] 05:39:00 Test Item Value Reference Range Interpretation [...] for patients with mechanical heart valves.VANCOMYCIN LEVEL, [id number] 05:28:00 Test Item Value Reference Range Interpretation Comments VANCOMYCIN TROUGH (BEAKER) (test 14.0 ug/mL 10.0-20.0 code = 522) RAD, CHEST, 1 VIEW, NON [id number] 16:09:00Reason for exam:->feverShould this be performed at [...] seen in the left upper quadrant. Signed: oJsy Price [facility] Verified Date/Time: 06/07/2018 16:09:31 Reading Location: [facility] INCUBATED 1:1 MIXING [id number] 16:01:00 Test Item Value Reference Range Interpretation Comments IMMEDIATE PT (BEAKER) 22.5 seconds 11.7-14.7 H (test code = 1487) IMMEDIATE PTT (BEAKER) 54.8 seconds 22.5-36.0 H (test code = 1488) IMMEDIATE 1:1 MIX PT 14.1 seconds 11.7-14.7 (BEAKER) (test code = 0689208579) IMMEDIATE 1:1 MIX PTT 40.9 seconds 22.5-36.0 H (BEAKER) (test code = 7142172229) 1:1 MIX, 1 HOUR INC PT 14.9 seconds (BEAKER) (test code = 1501) 1:1 MIX, 1 HOUR INC PTT 43.6 seconds (BEAKER) (test code = 1502) MIXING STUDY PATHOLOGIST Prolonged PT and PTT INTERPRETATION (BEAKER) with complete (test code = 1185039289) correction of PT and incomplete correction of PTT, 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 [id number] Sade Mccormack MD (BEAKER) (test code = (electronic 2608) signature) URINALYSIS W/ REFLEX URINE [id number] 14:23:00 Test Item Value Reference Range Interpretation [...] 1574) Rare SOURCE(BEAKER) (test code = 2795) [id number] 04:19:00 Test Item Value Reference Range Interpretation [...] 2.5-3.5 for patients with mechanical heart valves.PROTHROMBIN [id number] 04:18:00 Test Item Value Reference Range Interpretation Comments PROTIME (BEAKER) (test code = 22.3 seconds 11.7-14.7 H 759) INR (BEAKER) (test code = 370) 2.1 <=5.9 RECOMMENDED COUMADIN/WARFARIN INR THERAPY RANGESSTANDARD DOSE: 2.0 - 3.0 Includes: PROPHYLAXIS forvenous thrombosis, systemic embolization; TREATMENT for venous thrombosis and/or pulmonary embolus.HIGH RISK: Target INR is 2.5-3.5 for patients with mechanical heart valves.[id number] 04:08:00 Test Item Value Reference Range Interpretation Comments MAGNESIUM (BEAKER) (test code = 1.8 mg/dL 1.6-2.6 627) BASIC METABOLIC [id number] 04:08:00 Test Item Value Reference Range Interpretation [...] APPLICABLE FOR DIALYSIS PATIEN TS. HEPATIC FUNCTION [id number] 04:08:00 Test Item Value Reference Range Interpretation [...] H 347) CBC W/PLT COUNT & AUTO [id number] 03:56:00 Test Item Value Reference Range Interpretation [...] H PERCENT (BEAKER) (test code = 2801) MD, [id number] 18:30:00Reason for exam:->stonesPROCEDURE PERFORMED IN O.R. - PLEASE REFER TO THE INTRAOPERATIVE REPORT. CT, DRAINAGE, ABDOMINAL 2018-06-06 18:06:00Reason for exam:->drainage of pancreatic fluid collection; concern for infection given ongoing fevers, WBC 24kFINAL REPORT INDICATION:28-year-old male with acute pancreatitis and acute necrotic collection. Request for percutaneous image guided drainage catheter placement. COMPARISON:June 05, 2018 TECHNIQUE:CT-guided placement of 10 Barbadian drainage catheter in left upper quadrant peripancreatic [...] and the introducer needle removed. An 8 Barbadian and then 10 Barbadian dilator were used. Then, a 10 Barbadian multisidehole drainage catheter was placed over the [...] 45 minutes. IMPRESSION: CT-guided placement of 10 Barbadian drainage catheter in left upper quadrant peripancreatic collection. Thin dark fluid was encountered. Signed: Aldo Felton MDReport Verified Date/Time: 06/06/2018 18:06:54 Reading Location: [facility] B1 C013Y CT Body Reading Room Electronically sign ed by: ALDO FELTON M.D. on 06/06/2018 06:06 PMC. DIFFICILE GDH [id number] 10:12:00 Test Item Value Reference Range Interpretation Comments CDT TOXIN (test code Negative Negative = [id number]) CDT GDH ANTIGEN (test Negative Negative No ind ication of code = 8022516022) Clostridi um difficile infection and n o colonization. Discontinue ent starla isolation and t herapy. Testing performed by [employer] Rapid Cassette Assay. For GDH, published sensitivity of the assay is 98.7% compared to cytotoxicity testing. For Toxin AB, published sensitivity is 87.8% and specificity 99.4% compared to cytotoxicity testing.Verification of kit performance was done by the [facility] Microbiology Lab prior to clinical use.VANCOMYCIN LEVEL, [id number] 04:02:00 Test Item Value Reference Range Interpretation Comments VANCOMYCIN TROUGH (BEAKER) (test 9.9 ug/mL 10.0-20.0 L code = 522) [id number] 02:24:00 Test Item Value Reference Range Interpretation Comments MAGNESIUM (BEAKER) (test code = 1.8 mg/dL 1.6-2.6 627) BASIC METABOLIC [id number] 02:24:00 Test Item Value Reference Range Interpretation [...] APPLICABLE FOR DIALYSIS PATIEN TS. HEPATIC FUNCTION [id number] 02:24:00 Test Item Value Reference Range Interpretation [...] code = 60 U/L 6-55 H 347) [id number] 02:12:00 Test Item Value Reference Range Interpretation [...] 2.5-3.5 for patients with mechanical heart valves.PROTHROMBIN [id number] 02:11:00 Test Item Value Reference Range Interpretation [...] H PERCENT (BEAKER) (test code = 2801) [id number] 16:33:00 Test Item Value Reference Range Interpretation Comments FIBRINOGEN LEVEL (BEAKER) (test 852 mg/dl 225-434 H code = 658) CT, [id number] 12:46:00FINAL REPORT CT abdomen and pelvis with [...] MDReport Verified Date/Time: 06/05/2018 12:46:00 Reading Location: [facility] [facility] Diagnostic Imaging Reading Room - [place] [address] CBC W/PLT COUNT & AUTO DIFFERENTIAL 2018-06-05 [...] = 3438) Received comment: User comments: Slide comments:PT/[id number] 04:13:00 Test Item Value Reference Range Interpretation [...] is 2.5-3.5 for patients with mechanical heart valves.[id number] 04:12:00 Test Item Value Reference Range Interpretation Comments MAGNESIUM (BEAKER) (test code = 1.8 mg/dL 1.6-2.6 627) BASIC METABOLIC [id number] 04:12:00 Test Item Value Reference Range Interpretation [...] APPLICABLE FOR DIALYSIS PATIEN TS. HEPATIC FUNCTION [id number] 04:12:00 Test Item Value Reference Range Interpretation [...] code = 55 U/L 6-55 347) PROTHROMBIN [id number] 04:12:00 Test Item Value Reference Range Interpretation Comments PROTIME (BEAKER) (test code = 20.4 seconds 11.7-14.7 H 759) INR (BEAKER) (test code = 370) 1.9 <=5.9 RECOMMENDED COUMADIN/WARFARIN INR THERAPY RANGESSTANDARD DOSE: 2.0 - 3.0 Includes: PROPHYLAXIS forvenous thrombosis, systemic embolization; TREATMENT for venous thrombosis and/or pulmonary embolus.HIGH RISK: Target INR is 2.5-3.5 for patients with mechanical heart valves.BLOOD [id number] 02:02:00 Test Item Value Reference Range Interpretation Comments CULTURE (BEAKER) (test No growth in 5 days code = 1095) BLOOD [id number] 02:02:00 Test Item Value Reference Range Interpretation Comments CULTURE (BEAKER) (test No growth in 5 days code = 1095) CBC W/PLT COUNT & AUTO [id number] 22:18:00 Test Item Value Reference Range Interpretation [...] K/uL 0.00-0.00 H (CELLAVISION)(BEAKER) (test code = 5688) TOTAL COUNTED (BEAKER) (test code 100 = 1351) WBC MORPHOLOGY (BEAKER) (test code Normal = 487) GIANT PLATELETS (BEAKER) (test Present code = 313) POLYCHROMATOPHILLIC RBCS(BEAKER) 1+ few (test code = 478) ARTIFACT (CELLAVISION)(BEAKER) Present (test code = 3432) PLATELET CONCENTRATION Adequate (CELLAVISION)(BEAKER) (test code = 3438) Received comment: User comments: Slide comments:[id number] 14:28:00 Test Item Value Reference Range Interpretation Comments PROCALCITONIN (BEAKER) (test code 0.62 ng/mL <0.05 H = 3036) SEPSIS RISK (ng/mL)Low: 0.05-0.50Intermediate: 0.51-2.00High: >=2.01LACTIC ACID, [id number] 14:07:00 Test Item Value Reference Range Interpretation Comments LACTATE BLOOD VENOUS 1.1 mmol/L 0.5-2.2 Specime n moderately (2) (BEAKER) (test hemolyzed code = 2872) [id number] 06:34:00 Test Item Value Reference Range Interpretation Comments MAGNESIUM (BEAKER) (test code = 1.7 mg/dL 1.6-2.6 627) BASIC METABOLIC [id number] 06:34:00 Test Item Value Reference Range Interpretation [...] APPLICABLE FOR DIALYSIS PATIEN TS. HEPATIC FUNCTION [id number] 06:34:00 Test Item Value Reference Range Interpretation [...] (test code = 53 U/L 6-55 347) [id number] 06:06:00 Test Item Value Reference Range Interpretation [...] 2.5-3.5 for patients with mechanical heart valves.PROTHROMBIN [id number] 06:05:00 Test Item Value Reference Range Interpretation Comments PROTIME (BEAKER) (test code = 18.7 seconds 11.7-14.7 H 759) INR (BEAKER) (test code = 370) 1.7 <=5.9 RECOMMENDED COUMADIN/WARFARIN INR THERAPY RANGESSTANDARD DOSE: 2.0 - 3.0 Includes: PROPHYLAXIS forvenous thrombosis, systemic embolization; TREATMENT for venous thrombosis and/or pulmonary embolus.HIGH RISK: Target INR is 2.5-3.5 for patients with mechanical heart valves.[id number] 06:22:00 Test Item Value Reference Range Interpretation Comments MAGNESIUM (BEAKER) (test code = 1.8 mg/dL 1.6-2.6 627) BASIC METABOLIC [id number] 06:22:00 Test Item Value Reference Range Interpretation Comments SODIUM (BEAKER) 135 meq/L 136-145 L (test code = 381) POTASSIUM (BEAKER) 3.9 meq/L 3.5-5.1 (test code = 379) CHLORIDE (BEAKER) 103 meq/L 98-107 (test code = 382) CO2 (BEAKER) (test 25 meq/L 22-29 code = 355) BLOOD UREA NITROGEN 12 [...] APPLICABLE FOR DIALYSIS PATIEN TS. HEPATIC FUNCTION [id number] 06:22:00 Test Item Value Reference Range Interpretation [...] (test code = 46 U/L 6-55 347) [id number] 06:08:00 Test Item Value Reference Range Interpretation [...] 2.5-3.5 for patients with mechanical heart valves.PROTHROMBIN [id number] 06:07:00 Test Item Value Reference Range Interpretation [...] = 2801) CBC W/PLT COUNT & AUTO [id number] 04:50:00 Test Item Value Reference Range Interpretation [...] H PERCENT (BEAKER) (test code = 2801) [id number] 04:26:00 Test Item Value Reference Range Interpretation Comments MAGNESIUM (BEAKER) (test code = 1.7 mg/dL 1.6-2.6 627) BASIC METABOLIC [id number] 04:26:00 Test Item Value Reference Range Interpretation [...] APPLICABLE FOR DIALYSIS PATIEN TS. HEPATIC FUNCTION [id number] 04:26:00 Test Item Value Reference Range Interpretation [...] (test code = 54 U/L 6-55 347) [id number] 04:11:00 Test Item Value Reference Range Interpretation [...] 2.5-3.5 for patients with mechanical heart valves.PROTHROMBIN [id number] 04:10:00 Test Item Value Reference Range Interpretation Comments PROTIME (TAI) (test code = 17.3 seconds 11.7-14.7 H 759) INR (TAI) (test code = 370) 1.5 <=5.9 RECOMMENDED COUMADIN/WARFARIN INR THERAPY RANGESSTANDARD DOSE: 2.0 - 3.0 Includes: PROPHYLAXIS forvenous thrombosis, systemic embolization; TREATMENT for venous thrombosis and/or pulmonary embolus.HIGH RISK: Target INR is 2.5-3.5 for patients with mechanical heart valves.U/S, ABDOMINAL, [id number] 14:19:00Abdomen limited area? Add comment if clarification [...] duct dilatation. 2. Fatty liver. Signed: Josy Alberteport Verified Date/Time: 06/01/2018 14:19:45 Reading Location: [address] Reading Room CBC W/PLT COUNT & AUTO [id number] 06:28:00 Test Item Value Reference Range Interpretation [...] 0-1 PERCENT (BEAKER) (test code = 2801) [id number] 05:51:00 Test Item Value Reference Range Interpretation Comments MAGNESIUM (BEAKER) (test code = 2.0 mg/dL 1.6-2.6 627) BASIC METABOLIC [id number] 05:51:00 Test Item Value Reference Range Interpretation [...] DIALYSIS PATIEN TS. Specimen slightly ictericHEPATIC FUNCTION [id number] 05:51:00 Test Item Value Reference Range Interpretation [...] = 48 U/L 6-55 347) Specimen slightly ictericPT/[id number] 05:30:00 Test Item Value Reference Range Interpretation [...] 2.5-3.5 for patients with mechanical heart valves.PROTHROMBIN [id number] 05:29:00 Test Item Value Reference Range Interpretation Comments PROTIME (BEAKER) (test code = 16.0 seconds 11.7-14.7 H 759) INR (BEAKER) (test code = 370) 1.3 <=5.9 RECOMMENDED COUMADIN/WARFARIN INR THERAPY RANGESSTANDARD DOSE: 2.0 - 3.0 Includes: PROPHYLAXIS forvenous thrombosis, systemic embolization; TREATMENT for venous thrombosis and/or pulmonary embolus.HIGH RISK: Target INR is 2.5-3.5 for patients with mechanical heart valves.RAD, CHEST, 1 VIEW, NON [id number] 11:58:00Reason for exam:->pancreatitisShould this be performed at [...] inthe left lung base. Signed: Perez Briones Verified Date/Time: 05/31/2018 11:58:54 Reading Location: [facility] Radiology Reading Room CBC W/PLT COUNT & AUTO [id number] 08:44:00 Test Item Value Reference Range Interpretation [...] = 3438) Received comment: User comments: Slide comments:[id number] 04:27:00 Test Item Value Reference Range Interpretation Comments MAGNESIUM (BEAKER) (test code = 1.6 mg/dL 1.6-2.6 627) BASIC METABOLIC [id number] 04:27:00 Test Item Value Reference Range Interpretation [...] DIALYSIS PATIEN TS. Specimen moderately ictericHEPATIC FUNCTION [id number] 04:27:00 Test Item Value Reference Range Interpretation [...] = 29 U/L 6-55 347) Specimen moderately ictericPT/[id number] 04:15:00 Test Item Value Reference Range Interpretation [...] 2.5-3.5 for patients with mechanical heart valves.PROTHROMBIN [id number] 04:14:00 Test Item Value Reference Range Interpretation [...] = 2795) CBC W/PLT COUNT & AUTO [id number] 21:33:00 Test Item Value Reference Range Interpretation [...] PLATELET CONCENTRATION Adequate (CELLAVISION)(BEAKER) (test code = 3431) Received comment: User comments: Slide comments:TROPONIN [id number] 21:32:00 Test Item Value Reference Range Interpretation [...] acute neurological disease, and persistent tachyarrhythmia.BASIC METABOLIC [id number] 21:29:00 Test Item Value Reference Range Interpretation [...] APPLICABLE FOR DIALYSIS PATIEN TS. Specimen moderately [id number] 21:27:00 Test Item Value Reference Range Interpretation Comments MAGNESIUM (BEAKER) (test code = 1.6 mg/dL 1.6-2.6 627) LIPID [id number] 21:27:00 Test Item Value Reference Range Interpretation [...] 160-189 Very High >=190 Specimen moderatelyictericHEPATIC FUNCTION [id number] 21:27:00 Test Item Value Reference Range Interpretation [...] 9-64 (test code = 364) Specimen moderately [id number] 21:27:00 Test Item Value Reference Range Interpretation Comments LIPASE (BEAKER) (test code = 749) 227 U/L 8-78 H Specimen moderately ictericPROTHROMBIN [id number] 21:05:00 Test Item Value Reference Range Interpretation [...]
[2019-10-13 15:04] LABS: Absolute Lymphocytes (CBC) 0.6 K/uL (0.7-4.9); Basophils % 0.1 % (0-1.3); Hematocrit 50.8 % (39.6-49.0); Lymphocytes % 5.3 % (15.3-44.8); RBC Red Blood Cell Count 5.93 M/uL (4.33-5.43)
[2019-10-13] MEDS ORDERED: MORPHINE 4 MG/ML SYR ONE ×2 (15:24→19:19)
[2019-10-13] MEDS ORDERED: ONDANSETRON 4 MG/2 ML VIAL ONE (15:24)
[2019-10-13] MEDS ORDERED: NA CHLORIDE 0.9% 1,000 ML ONE (15:25)
--- NOTE | 2019-10-13 15:48 | RAD REPORT ---
EXAM DESCRIPTION: CT - Abdomen Pelvis W Contrast - 10/13/2019 3:18 pm CLINICAL HISTORY: Abdominal pain COMPARISON: August 2019 TECHNIQUE: Computed axial tomography of the abdomen pelvis was obtained. 100 cc Isovue-300 was admin istered intravenously. Oral contrast was not requested which limits evaluation of bowel. All CT scans are performed using dose optimization technique as appropriate and may include automated exposure control or mA/KV adjustment according to patient size. FINDINGS: The pancreas is enlarged and inhomogeneous. Most of the pancreas demonstrates diminished d ensity consistent with necrosis. Peripancreatic stranding is present. Small amount of fluid surrounds the spleen. 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 Upper quadrant varices are present. The spleen is mildly enlarged. Mild dilatation of the intra and extrahepatic biliary tree. The adrenals and kidneys unremarkable Postsurgical changes involve stomach. This a 16 millimeter area of increased density is present withi n the gastric fundus. . There is no evidence of diverticulitis. IMPRESSION: Pancreatic necrosis Increased density within the stomach may indicate acute bleeding and should be correlated clinically. Mild dilatation of the intra and extrahepatic biliary tree perhaps secondary to a common bile duct st ricture
[2019-10-13 16:10] LABS: MPV 12.1 fL (7.6-11.3)
[2019-10-13 16:26] LABS: ALT/SGPT 20 U/L (12-78); Albumin 3.7 g/dL (3.4-5.0); Alkaline Phosphatase 181 U/L (45-117); BUN Blood Urea Nitrogen 7 mg/dL (7-18); Bicarbonate 33 mmol/L (21-32); Bilirubin Direct 0.2 mg/dL (0-0.2); Bilirubin Total 0.7 mg/dL (0.2-1.0); Glucose Level 96 mg/dL (74-106); Lipase 3042 U/L (73-393); Protein, Total 7.8 g/dL (6.4-8.2)
[2019-10-13 16:29] LABS: AST/SGOT 30 U/L (15-37); Potassium 3.4 mmol/L (3.5-5.1); Sodium Level 140 mmol/L (136-145)
--- NOTE | 2019-10-13 17:16 | ER ---
Nurse's Notes [facility] Name: Jann Alvarez Age: 29 yrs Sex: Male : 1990 Arrival Date: 10/13/2019 Time: 14:09 Bed 19 Private MD: Diagnosis: Biliary acute pancreatitis Presentation: 10/12 14:09 Chief complaint: Parent and/or Guardian states: PT BEGAN VOMITING WITH SEVERE PAIN ls4 AROUND 12 PM. [place] [facility] [place] 14:09 Coronavirus screen: Client denies travel out of the [place] in the last 14 days. At this ls4 time, the client does not indicate any symptoms associated with coronavirus-19. Ebola Screen: No symptoms or risks identified at this time. Initial Sepsis Screen: Does the patient meet any 2 criteria? No. Patient's initial sepsis screen is negative. Does the patient have a suspected source of infection? No. Patient's initial sepsis screen is negative. Risk Assessment: Do you want to hurt yourself or someone else? Patient reports no desire to harm self or others. Onset of symptoms was October 13, 2019 at 12:00. Care prior to arrival: None. Activity prior to arrival: vomiting. 14:09 Method Of Arrival: EMS: [facility] ls4 14:09 Acuity: KIMBER 2 ls4 Triage Assessment: 14:30 General: Appears in no apparent distress. uncomfortable, Behavior is flat. Pain: ls4 Complains of pain in epigastric area and umbilical area Pain currently is 10 out of 10 on a pain scale. Neuro: Level of Consciousness is awake, alert, obeys commands, Oriented to person, place, time, situation, non verbal , autistic. pt mother in room. . T[employer] Trimmer Hand are equal bilaterally. Historical: - Allergies: 14:22 meropenem; ls4 14:22 Vancomycin; ls4 14:22 Zosyn; ls4 - PMHx: 14:22 Autism; Autism- Nonverbal; Lupus; Pancreatitis; GASTRIC VARICES; SEVERE PANCREATIC ls4 NECROSIS; - Social history:: Patient/guardian denies using alcohol, street drugs, The patient lives with family. - Family history:: not pertinent, pertinent for. Screenin:22 Abuse screen: Denies threats or abuse. Denies injuries from another. Nutritional ls4 screening: No deficits noted. Tuberculosis screening: No symptoms or risk factors identified. Fall Risk None identified. Assessment: 16:00 Reassessment: Patient and/or family updated on plan of care and expected duration. Pain ls4 level reassessed. Patient is alert, oriented x 3, equal unlabored respirations, skin warm/dry/pink. Patient states symptoms have improved. 17:00 Reassessment: No changes from previously documented assessment. Patient and/or family ls4 updated on plan of care and expected duration. Pain level reassessed. Patient is alert, oriented x 3, equal unlabored respirations, skin warm/dry/pink. 19:23 Reassessment: Patient and/or family updated on plan of care and expected duration. Pain ls4 level reassessed. Patient is alert, oriented x 3, equal unlabored respirations, skin warm/dry/pink. pain med administered. pain 8/10. 20:20 Reassessment: Patient and/or family updated on plan of care and expected duration. Pain jb4 level reassessed. Patient is alert, oriented x 3, equal unlabored respirations, skin warm/dry/pink. PT remains alert and oriented x4, IV site clean dry and intact, no fluids infusing. Vital Signs: 14:09 BP 122 / 98; Pulse 92; Resp 20; Temp 98.0(O); Pulse Ox 98% on R/A; Weight 56.7 kg; ls4 Height 5 ft. 10 in. (177.80 cm); Pain 8/10; 15:00 BP 118 / 88; Pulse 74; Resp 16; Pulse Ox 99% on R/A; Pain 6/10; ls4 16:00 BP 128 / 90; Pulse 82; Resp 16; Pulse Ox 99% on R/A; ls4 17:00 BP 126 / 90; Pulse 82; Resp 16; Pulse Ox 99% on R/A; ls4 18:00 BP 122 / 92; Pulse 82; Resp 16; Pulse Ox 99% on R/A; ls4 19:21 BP 128 / 92; Pulse 82; Resp 16; Pulse Ox 100% on R/A; Pain 8/10; ls4 14:09 Body Mass Index 17.94 (56.70 kg, 177.80 cm) ls4 ED Course: 14:09 Patient arrived in ED. ds1 14:14 Gardenia Bailey, BRISA is Primary Nurse. ls4 14:21 Triage completed. ls4 14:22 Patient has correct armband on for positive identification. Bed in low position. Call ls4 light in reach. Side rails up X 1. campus monitor on. Pulse ox on. NIBP on. Warm blanket given. Pillow given. Verbal reassurance given. Diet: Patient is NPO. 14:22 No provider procedures requiring assistance completed. ls4 14:22 Initial lab(s) drawn, by me, sent to lab. Inserted saline lock: 24 gauge in right ls4 antecubital area, using aseptic technique. Blood collected. Patient maintains SpO2 saturation greater than 95% on room air. 14:30 Hank Romero MD is Attending Physician. ma2 15:18 CT Abd/Pelvis - IV Contrast Only In Process Unspecified. EDMS 17:14 transfer initiated with Sheri from the [facility]. eb 17:22 per Sheri at [facility] they have to deny the patient in transfer eb due to being at capacity. 17:37 initiated a transfer with Sheri Milian from the [facility]. eb 17:[address] Gaming Bili manager contact for [facility] with Dr. Romero for patient eb transfer consultation. 18:00 No apparent distress. Resting quietly. ls4 18:[address] Mon the hospitalist manager contact for [facility] with Dr. Romero for eb patient transfer consultation. 18:08 administrative approval given by Sheri Milian Rn/ patient has been accepted to [facility] bed 2114/ Dr. Mon has accepted the patient in transfer/ report to be called to [phone]. 20:20 Patient transferred, IV remains in place. jb4 Administered Medications: 15:19 Drug: NS 0.9% 1000 ml Route: IV; Rate: 1 bolus; Site: right antecubital; ls4 15:20 Drug: Zofran (Ondansetron) 4 mg Route: IVP; Site: right antecubital; ls4 15:39 Follow up: Response: No adverse reaction; Marked relief of symptoms ls4 15:20 Drug: morphine 4 mg Route: IVP; Site: right antecubital; ls4 15:39 Follow up: Response: No adverse reaction; Marked relief of symptoms ls4 19:20 Drug: morphine 4 mg Route: IVP; Site: right antecubital; ls4 Outcome: 17:16 ER care complete, transfer ordered by . garry 20:20 Transferred by ground EMS [facility] . to [facility], Transfer form completed. X-rays jb4 sent w/ patient. 20:20 Condition: stable 20:20 Discharge instructions given to patient, family, Instructed on the need for transfer, Demonstrated understanding of instructions. 20:23 Patient left the ED. ss Signatures: Dispatcher [employer] EDMI Jaqueline Wiggins ds1 Kimberly Brar RN RN ss Ray Lowe RN RN jb4 Hank Romero MD MD ma2 Christy Astudillo Lisa RN RN ls4 Corrections: (The following items were deleted from the chart) 19:23 15:00 Reassessment: No changes from previously documented assessment. Patient and/or ls4 family updated on plan of care and expected duration. Pain level reassessed. Patient is alert, oriented x 3, equal unlabored respirations, skin warm/dry/pink. ls4 19:23 16:00 Reassessment: No changes from previously documented assessment. Patient and/or ls4 family updated on plan of care and expected duration. Pain level reassessed. Patient is alert, oriented x 3, equal unlabored respirations, skin warm/dry/pink. ls4
--- NOTE | 2019-10-13 17:16 | EDPHYS ---
Physician Documentation [facility] Name: Jann Alvarez Age: 29 yrs Sex: Male : 1990 Arrival Date: 10/13/2019 Time: 14:09 Bed 19 Private MD: ED Physician Hank Romero HPI: 10/12 14:48 This 29 yrs old Male presents to ER via EMS with complaints of abd pain. ma2 14:48 The patient presents with abdominal pain. Onset: The symptoms/episode began/occurred ma2 gradually, 2 day(s) ago. Associated signs and symptoms: Pertinent negatives: anorexia, chest pain, constipation, dysuria. Severity of pain: At its worst the pain was moderate in the emergency department the pain is unchanged. The patient has experienced similar episodes in the past. Historical: - Allergies: 14:22 meropenem; ls4 14:22 Vancomycin; ls4 14:22 Zosyn; ls4 - PMHx: 14:22 Autism; Autism- Nonverbal; Lupus; Pancreatitis; GASTRIC VARICES; SEVERE PANCREATIC ls4 NECROSIS; - Social history:: Patient/guardian denies using alcohol, street drugs, The patient lives with family. - Family history:: not pertinent, pertinent for. ROS: 14:48 Constitutional: Negative for fever, chills, and weight loss. ma2 14:48 All other systems are negative. Exam: 14:48 Constitutional: This is a well developed, well nourished patient who is awake, alert, ma2 and in no acute distress. Neck: Trachea midline, no thyromegaly or masses palpated, and no cervical lymphadenopathy. Supple, full range of motion without nuchal rigidity, or vertebral point tenderness. No Meningismus. Chest/axilla: Normal chest wall appearance and motion. Nontender with no deformity. No lesions are appreciated. Cardiovascular: Regular rate and rhythm with a normal S1 and S2. No gallops, murmurs, or rubs. Normal PMI, no JVD. No pulse deficits. Respiratory: Lungs have equal breath sounds bilaterally, clear to auscultation and percussion. No rales, rhonchi or wheezes noted. No increased work of breathing, no retractions or nasal flaring. Abdomen/GI: diffusely tender no guarding , with normal bowel sounds. No distension or tympany. No guarding or rebound. No evidence of tenderness throughout. Back: No spinal tenderness. No costovertebral tenderness. Full range of motion. Skin: Warm, dry with normal turgor. Normal color with no rashes, no lesions, and no evidence of cellulitis. MS/ Extremity: Pulses equal, no cyanosis. Neurovascular intact. Full, normal range of motion. Neuro: Awake and alert, GCS 15, oriented to person, place, time, and situation. Cranial nerves II-XII grossly intact. Motor strength 5/5 in all extremities. Sensory grossly intact. Cerebellar exam normal. Normal gait. Vital Signs: 14:09 BP 122 / 98; Pulse 92; Resp 20; Temp 98.0(O); Pulse Ox 98% on R/A; Weight 56.7 kg; ls4 Height 5 ft. 10 in. (177.80 cm); Pain 8/10; 15:00 BP 118 / 88; Pulse 74; Resp 16; Pulse Ox 99% on R/A; Pain 6/10; ls4 16:00 BP 128 / 90; Pulse 82; Resp 16; Pulse Ox 99% on R/A; ls4 17:00 BP 126 / 90; Pulse 82; Resp 16; Pulse Ox 99% on R/A; ls4 18:00 BP 122 / 92; Pulse 82; Resp 16; Pulse Ox 99% on R/A; ls4 19:21 BP 128 / 92; Pulse 82; Resp 16; Pulse Ox 100% on R/A; Pain 8/10; ls4 14:09 Body Mass Index 17.94 (56.70 kg, 177.80 cm) ls4 MDM: 14:30 Patient medically screened. [facility] 14:48 Differential diagnosis: gastritis, gastroesophageal reflux disease, GI Bleed, Irritable ma2 bowel syndrome. 17:14 Data reviewed: vital signs, nurses notes. Counseling: I had a detailed discussion with ma2 the patient and/or guardian regarding: the historical points, exam findings, and any diagnostic results supporting the discharge/admit diagnosis, the presence of at least one elevated blood pressure reading (>120/80) during this emergency department visit, the need for outpatient follow up. Response to treatment: the patient's symptoms have markedly improved after treatment. ED course: patient want to be transferred to [facility] for continuity of care.. . 10/12 14:14 Order name: Basic Metabolic Panel; Complete Time: 16:38 [facility] 10/12 14:14 Order name: CBC with Diff; Complete Time: 16:38 [facility] 10/12 14:14 Order name: Hepatic Function; Complete Time: 16:38 [facility] 10/12 14:14 Order name: Lipase; Complete Time: 16:38 [facility] 10/12 14:51 Order name: CT Abd/Pelvis - IV Contrast Only; Complete Time: 16:38 [facility] 10/12 14:14 Order name: IV Saline Lock; Complete Time: 15:21 [facility] 10/12 14:14 Order name: Labs collected and sent; Complete Time: 15:21 [facility] 10/12 14:15 Order name: EKG - Nurse/Tech; Complete Time: 19:05 [facility] 10/12 14:15 Order name: EKG; Complete Time: 14:15 [facility] 10/12 14:51 Order name: Urine Dipstick-Ancillary (obtain specimen); Complete Time: 19:05 ct2 Administered Medications: 15:19 Drug: NS 0.9% 1000 ml Route: IV; Rate: 1 bolus; Site: right antecubital; ls4 15:20 Drug: Zofran (Ondansetron) 4 mg Route: IVP; Site: right antecubital; ls4 15:39 Follow up: Response: No adverse reaction; Marked relief of symptoms ls4 15:20 Drug: morphine 4 mg Route: IVP; Site: right antecubital; ls4 15:39 Follow up: Response: No adverse reaction; Marked relief of symptoms ls4 19:20 Drug: morphine 4 mg Route: IVP; Site: right antecubital; ls4 Disposition: 10/13/19 17:16 Transfer ordered to [facility]. Diagnosis is Biliary acute pancreatitis. - Reason for transfer: Higher level of care. - Accepting physician is Wallace. - Condition is Stable. - Problem is new. - Symptoms are unchanged. Signatures: Dispatcher [employer] Kimberly Paez RN RN Hank Romero MD MD ma2 Gardenia Bailey RN RN ls4 Corrections: (The following items were deleted from the chart) 17:55 17:16 10/13/2019 17:16 Transfer ordered to [facility]. Diagnosis is ma2 Biliary acute pancreatitis. Reason for transfer: Higher level of care. Accepting physician is OS. Condition is Stable. Problem is new. Symptoms are unchanged. ma2 20:23 17:55 10/13/2019 17:16 Transfer ordered to [facility]. Diagnosis is ss Biliary acute pancreatitis. Reason for transfer: Higher level of care. Accepting physician is Wallace. Condition is Stable. Problem is new. Symptoms are unchanged. ma2
[2019-10-14 07:29] VITALS: TEMP 98
[2019-10-14 07:35] VITALS: BP 128/92; O2SAT 100
--- NOTE | 2019-10-14 20:01 | EKG ---
Test Date: 2019-10-13 Test Time: 15:56:29 [employer] Wireman: JEREMIE MEASUREMENT RESULTS: Intervals: Rate: 92 DC: 136 QRSD: 78 QT: 360 QTc: 445 Hamill: P: 71 DC: 136 QRS: 43 T: 43 INTERPRETIVE STATEMENTS: Normal sinus rhythm Normal ECG Electronically Signed On 10-14-19 19:59:25 CDT by Charly Faustin
--- NOTE | 2019-10-14 20:06 | EKG ---
Test Date: 2019-10-10 Test Time: 16:24:24 [place]: ZANE MEASUREMENT RESULTS: Intervals: Rate: 71 KS: 170 QRSD: 56 QT: 396 QTc: 430 [place]: P: 55 KS: 170 QRS: 2 T: 55 INTERPRETIVE STATEMENTS: Sinus rhythm with occasional premature ventricular complexes Junctional ST depression, probably abnormal Abnormal ECG Compared to ECG 08/26/2019 17:45:11 Ventricular premature complex(es) now present ST (T wave) deviation now present Electronically Signed On 10-14-19 19:59:55 CDT by Charly Faustin
== END 2019-10-13 20:23 | disposition short-term general hospital (02) ==
LOC: ER 13:55
DX: K85.10 Biliary acute pancreatitis without necrosis or infection (principal); F84.0 Autistic disorder; Z88.1 Allergy status to other antibiotic agents; Z88.8 Allergy status to other drugs, medicaments and biological substances
CPT/HCPCS: 93005 ×2; 85025; 80048; 36415; 82565; 80076; 83690; 74177; 96375; 96374; 99285; Q9967; J7030; J2405

== ENCOUNTER 2019-12-01 12:28 | Emergency (ER) | payer OTHER ==
--- OUTSIDE RECORDS SUMMARY | 2019-12-01 12:32 | XMS REPORT | Clinical Summary ---
:1990 Author Organization [facility] Address [address] [place] [address] Care Team Providers Name Role Phone Zac Coughlin Montrell Primary Care Provider [place] Unavailable Allergies Active Allergy Reactions Severity Noted [...] meropenem. Medications Medication Sig Dispensed Refills Start End Date Status Date ferrous sulfate 325 Take 1 tablet 1 Active (65 FE) MG tablet by mouth 2 9 (two) times daily. ondansetron Take 1 tablet 0 Acti ve (ZOFRAN-ODT) 4 MG by mouth 9 disintegrating every 8 tablet (eight) hours as needed. pantoprazole Take 40 mg by 1 Act yuridia (PROTONIX) 40 MG mouth 2 (two) 9 tablet times daily . ursodioL (ACTIGALL) Take 500 mg 0 Active 500 MG tablet by mouth daily. midodrine Take 2 90 tablet 0 Active (PROAMATINE) 5 MG tablets (10 0 tablet mg total) by mouth 3 (three) times daily. traMADoL (ULTRAM) Take 2 30 tablet 0 Ac tive 50 mg tablet tablets (100 0 mg total) by mouth every 6 (six) hours as needed for Pain. Max Daily Amount: 400 mg senna (SENOKOT) 8.6 Take 2 60 tablet 0 10/24/19 Active mg tablet tablets (17.2 0 21 mg total) by mouth nightly. gabapentin Take 2 180 capsule 0 10/24/19 Active (NEURONTIN) 100 MG capsules (200 0 21 capsule mg total) by mouth 3 (three) times daily. nystatin Apply 15 g 0 06/16/19 (MYCOSTATIN) topically 2 9 20 100,000 unit/gram (two) times powder daily. HYDROcodone-acetami Take 1 tablet 30 tablet 0 Discontinued nophen (NORCO by mouth 3 9 20 (Stop Taking at 10-325) 10-325 mg (three) times Discharge) per tablet daily as needed. Max Daily Amount: 3 tablets HYDROcodone-acetami Take 1 tablet 20 tablet 0 Discontinued nophen (NORCO by mouth 9 20 (Reord er) 5-325) 5-325 mg per every 8 tablet (eight) hours as needed for up to 20 doses. Max Daily Amount: 3 tablets docusate sodium Take 100 mg 0 10/13/19 Di scontinued (COLACE) 100 MG by mouth as 9 20 capsule needed. ondansetron Take 4 mg by 1 02/18/19 Disco ntinued (ZOFRAN) 4 MG mouth every 9 20 (Sto p Taking at tablet 12 (twelve) Discharg e) hours. HYDROcodone-acetami Take 1 tablet 21 tablet 0 Discontinued nophen (NORCO by mouth 0 20 (Stop Taking at 5-325) 5-325 mg per every 8 Discharge) tablet (eight) hours as needed for Pain for up to 7 doses. Max Daily Amount: 3 tablets metroNIDAZOLE Take 1 tablet 9 tablet 0 02/21/19 Ex pired (FLAGYL) 500 MG (500 mg 0 20 tablet total) by mouth every 8 (eight) hours for 3 days. ciprofloxacin HCl Take 1 tablet 6 tablet 0 02/21/19 (CIPRO) 500 MG (500 mg 0 20 tablet total) by mouth every 12 (twelve) hours for 3 days. HYDROcodone-acetami Take 1 tablet 21 tablet 0 nophen (NORCO by mouth 0 20 10-325) 10-325 mg every 8 per tablet (eight) hours as needed for Pain for up to 7 days. Max Daily Amount: 3 tablets metroNIDAZOLE Take 500 mg 0 10/13/19 Disc ontinued (FLAGYL) 500 MG by mouth 3 20 tablet (three) times daily. traMADoL (ULTRAM) Take 50 mg by 0 10/24/19 Discontinued 50 mg tablet mouth every 6 20 (Re order) (six) hours as needed for Pain. levoFLOXacin Take 750 mg 0 10/24/19 Disco ntinued (LEVAQUIN) 750 MG by mouth 20 (S top Taking at tablet daily. Discharge) midodrine Take 5 mg by 0 10/24/19 Discont inued (PROAMATINE) 5 MG mouth 3 20 (R eorder) tablet (three) times daily. esomeprazole Take 40 mg by 0 10/24/19 Dis continued (NEXIUM) 40 MG mouth daily. 0 20 (S top Taking at capsule Discharge) Active Problems Problem Noted Date Acute postoperative pain 10/18/2019 Acute respiratory insufficiency, postoperative 020 Hemorrhagic shock 10/18/2019 Metabolic acidosis 10/18/2019 Oliguria 10/18/2019 Acute blood loss anemia 10/18/2019 Hyperglycemia 10/18/2019 S/P splenectomy during current hospitalization 020 Gastric varices 10/13/2019 Obstructive jaundice 02/14/2019 GI bleed 08/27/2018 Leukocytosis 08/27/2018 Hypomagnesemia 07/28/2018 Acute recurrent pancreatitis 07/27/2018 Peripancreatic fluid collection 07/11/2018 Cholangitis 05/30/2018 Encounters Date Type Specialty Care Team Description 10/17/2019 Anesthesia Event Wyatt Morocho MD Whiteru, Uvie Christina, MD 10/17/2019 Surgery Marc Clark MD 10/15/2019 Anesthesia Event Gastroenterology Nelson Grier MD Zemrau, Ludwig, CRNA 10/15/2019 Surgery Gastroenterology Wilmer Santiago MD ENDOSCOPY,ULTRA SOUND 10/13/2019 Hospital Encounter General Internal Zindani, Gastr ic varices; - Medicine MD April Other acute pancreatitis with uninfected necrosis; 10/24/2019 JessicaCatherine hua Acute biliary p ancreatitis with uninfected necrosis; Khadijah Proctor, Splenic vein thrombosis; Acute respiratory insufficiency, postope rative; Jorge Arcos MD Other shock ([facility]); Snow Adams Acute posto perative pain; MD Aristeo Leukocytosis, unspecified type; Oscar, S/P splenectomy during current hospitalization; Negin Connors, Acute blood loss anemia; Hemorrhagic steff ck (HCC); Metabolic acido sis 10/13/2019 Documentation Internal Medicine April Mon MD 08/27/2019 Telephone Gastroenterology Trinidad Cuellar MD 08/26/2019 Lab Requisition Lab 02/15/2019 Anesthesia Event Gastroenterology Elver Avendaño MD 02/15/2019 Surgery Gastroenterology Uriah Childs ERCP 02/14/2019 Hospital Encounter [facility], Obstructi ve jaundice; - MD Linda Peripancreatic fluid collection; 02/18/2019 Gadicherla, History of panc reatitis; Katina Leukocytosis, u nspecified type; MD Wing Acute blood loss anemia Jacob Pinon MD Zaheer, Amer, MD 02/14/2019 Travel after 11/30/2018 Immunizations Name Administration Dates Next Due HiB 10/23/2019 Influenza Four-QIV PF 3YR+ 10/24/2019 Meningococcal B, Omv 10/23/2019 Meningococcal Conjugate 10/24/2019 Pneumococcal Conjugate (Prevnar) 13-Valent 10/24/2019 Social History Tobacco Use Types Packs/Day Years Used Date Never Smoker Smokeless Tobacco: Never Used Sex Assigned at Date Recorded Not on file Last Filed Vital Signs Vital Sign Reading Time Taken Comments Blood Pressure 95/58 10/24/2019 8:32 AM CDT Pulse 74 10/24/2019 8:32 AM CDT Temperature 36.6 C (97.8 F) 10/24/2019 8:32 AM CDT Respiratory Rate 17 10/24/2019 8:32 AM CDT Oxygen Saturation 97% 10/24/2019 8:32 AM CDT Inhaled Oxygen Concentration 21% 10/21/2019 9:26 AM CDT Weight 73 kg (160 lb 15 oz) 10/21/2019 6:00 AM CDT Height 177.8 cm (5' 10") 10/15/2019 4:58 PM CDT Body Mass Index 23.09 10/15/2019 4:58 PM CDT Plan of Treatment Health Maintenance Due Date Last Done Comments INFLUENZA VACCINE Completed 10/24/2019 Implants Implanted Type Area Clay Artisan Device Shelf Model / Identifier Expiration Date Ser ial / Lot Stent Bili Duodenal [id number] - [id number] IMPLANTS MIKAYLA STON SCI:ENDO 3432 / Implanted: Qty: 1 on 02/15/2019 by Uriah Childs [facility] / Procedures Procedure Name Priority Date/Time Associated Comments Diagnosis RHYTHM STRIP - SCAN 10/28/2019 12:11 PM CDT POCT-GLUCOSE METER Routine 10/24/2019 8:37 Resul ts for this AM CDT procedure are i n the results section. CBC (HEMOGRAM ONLY) Routine 10/24/2019 6:13 Resu lts for this AM CDT procedure are i n the results section. PT/APTT Routine 10/24/2019 6:13 Results for this AM CDT procedure are i n the results section. PHOSPHORUS Routine 10/24/2019 6:13 Results for this AM CDT procedure are i n the results section. MAGNESIUM Routine 10/24/2019 6:13 Results for this AM CDT procedure are i n the results section. BASIC METABOLIC PANEL Routine 10/24/2019 6:13 Re sults for this (7) AM CDT procedure are i n the results section. POCT-GLUCOSE METER Routine 10/23/2019 9:11 Resul ts for this PM CDT procedure are i n the results section. POCT-GLUCOSE METER Routine 10/23/2019 4:27 Resul ts for this PM CDT procedure are i n the results section. POCT-GLUCOSE METER Routine 10/23/2019 11:46 Resul ts for this AM CDT procedure are i n the results section. POCT-GLUCOSE METER Routine 10/23/2019 7:45 Resul ts for this AM CDT procedure are i n the results section. CBC (HEMOGRAM ONLY) Routine 10/23/2019 6:34 Resu lts for this AM CDT procedure are i n the results section. PT/APTT Routine 10/23/2019 6:34 Results for this AM CDT procedure are i n the results section. PHOSPHORUS Routine 10/23/2019 6:34 Results for this AM CDT procedure are i n the results section. MAGNESIUM Routine 10/23/2019 6:34 Results for this AM CDT procedure are i n the results section. BASIC METABOLIC PANEL Routine 10/23/2019 6:34 Re sults for this (7) AM CDT procedure are i n the results section. CBC W/PLT COUNT & AUTO Routine 10/22/2019 10:27 R esults for this DIFFERENTIAL PM CDT procedure are i n the results section. CBC W/PLT COUNT & AUTO Routine 10/22/2019 10:27 R esults for this DIFFERENTIAL PM CDT procedure are i n the results section. POCT-GLUCOSE METER Routine 10/22/2019 9:30 Resul ts for this PM CDT procedure are i n the results section. POCT-GLUCOSE METER Routine 10/22/2019 3:36 Resul ts for this PM CDT procedure are i n the results section. POCT-GLUCOSE METER Routine 10/22/2019 12:14 Resul ts for this PM CDT procedure are i n the results section. POCT-GLUCOSE METER Routine 10/22/2019 6:51 Resul ts for this AM CDT procedure are i n the results section. POCT-GLUCOSE METER Routine 10/22/2019 6:27 Resul ts for this AM CDT procedure are i n the results section. CBC (HEMOGRAM ONLY) Routine 10/22/2019 6:24 Resu lts for this AM CDT procedure are i n the results section. PT/APTT Routine 10/22/2019 6:24 Results for this AM CDT procedure are i n the results section. PHOSPHORUS Routine 10/22/2019 6:24 Results for this AM CDT procedure are i n the results section. MAGNESIUM Routine 10/22/2019 6:24 Results for this AM CDT procedure are i n the results section. BASIC METABOLIC PANEL Routine 10/22/2019 6:24 Re sults for this (7) AM CDT procedure are i n the results section. POCT-GLUCOSE METER Routine 10/21/2019 11:48 Resul ts for this PM CDT procedure are i n the results section. POCT-GLUCOSE METER Routine 10/21/2019 6:40 Resul ts for this PM CDT procedure are i n the results section. POCT-GLUCOSE METER Routine 10/21/2019 12:29 Resul ts for this PM CDT procedure are i n the results section. AMYLASE PERITONEAL STAT 10/21/2019 10:19 Resul ts for this FLUID AM CDT procedure are i n the results section. AMYLASE PERITONEAL STAT 10/21/2019 10:19 Resul ts for this FLUID AM CDT procedure are i n the results section. CBC (HEMOGRAM ONLY) Routine 10/21/2019 9:59 Resu lts for this AM CDT procedure are i n the results section. PT/APTT Routine 10/21/2019 9:59 Results for this AM CDT procedure are i n the results section. PHOSPHORUS Routine 10/21/2019 9:59 Results for this AM CDT procedure are i n the results section. MAGNESIUM Routine 10/21/2019 9:59 Results for this AM CDT procedure are i n the results section. BASIC METABOLIC PANEL Routine 10/21/2019 9:59 Re sults for this (7) AM CDT procedure are i n the results section. SARS-COV2/RT-PCR ([facility] Routine 10/21/2019 7:15 R esults for this & REF LABS) AM CDT procedure are i n the results section. POCT-GLUCOSE METER Routine 10/21/2019 6:57 Resul ts for this AM CDT procedure are i n the results section. POCT-GLUCOSE METER Routine 10/21/2019 6:28 Resul ts for this AM CDT procedure are i n the results section. POCT-GLUCOSE METER Routine 10/21/2019 5:58 Resul ts for this AM CDT procedure are i n the results section. POCT-GLUCOSE METER Routine 10/21/2019 12:05 Resul ts for this AM CDT procedure are i n the results section. POCT-GLUCOSE METER Routine 10/20/2019 5:46 Resul ts for this PM CDT procedure are i n the results section. POCT-GLUCOSE METER Routine 10/20/2019 11:45 Resul ts for this AM CDT procedure are i n the results section. POCT-GLUCOSE METER Routine 10/20/2019 7:04 Resul ts for this AM CDT procedure are i n the results section. CBC (HEMOGRAM ONLY) Routine 10/20/2019 3:39 Resu lts for this AM CDT procedure are i n the results section. PT/APTT Routine 10/20/2019 3:39 Results for this AM CDT procedure are i n the results section. PHOSPHORUS Routine 10/20/2019 3:39 Results for this AM CDT procedure are i n the results section. MAGNESIUM Routine 10/20/2019 3:39 Results for this AM CDT procedure are i n the results section. BASIC METABOLIC PANEL Routine 10/20/2019 3:39 Re sults for this (7) AM CDT procedure are i n the results section. POCT-GLUCOSE METER Routine 10/20/2019 12:18 Resul ts for this AM CDT procedure are i n the results section. TRANSFUSION SERVICE 10/19/2019 6:01 REPORT - SCAN PM CDT POCT-GLUCOSE METER Routine 10/19/2019 5:28 Resul ts for this PM CDT procedure are i n the results section. MAGNESIUM STAT 10/19/2019 4:11 Results for this PM CDT procedure are i n the results section. PHOSPHORUS STAT 10/19/2019 4:11 Results for this PM CDT procedure are i n the results section. BASIC METABOLIC PANEL STAT 10/19/2019 4:11 Re sults for this (7) PM CDT procedure are i n the results section. POCT-GLUCOSE METER Routine 10/19/2019 12:30 Resul ts for this PM CDT procedure are i n the results section. POCT-GLUCOSE METER Routine 10/19/2019 11:56 Resul ts for this AM CDT procedure are i n the results section. XR CHEST 1 VIEW LAURA 10/19/2019 8:05 Results for this PORTABLE/BEDSIDE AM CDT procedure a re in the results section. POCT-GLUCOSE METER Routine 10/19/2019 6:37 Resul ts for this AM CDT procedure are i n the results section. CBC (HEMOGRAM ONLY) Routine 10/19/2019 1:29 Resu lts for this AM CDT procedure are i n the results section. PT/APTT Routine 10/19/2019 1:29 Results for this AM CDT procedure are i n the results section. BLOOD GAS, ARTERIAL Routine 10/19/2019 1:29 Resu lts for this AM CDT procedure are i n the results section. PHOSPHORUS Routine 10/19/2019 1:29 Results for this AM CDT procedure are i n the results section. MAGNESIUM Routine 10/19/2019 1:29 Results for this AM CDT procedure are i n the results section. BASIC METABOLIC PANEL Routine 10/19/2019 1:29 Re sults for this (7) AM CDT procedure are i n the results section. POCT-GLUCOSE METER Routine 10/19/2019 12:20 Resul ts for this AM CDT procedure are i n the results section. PREPARE RBC STAT 10/18/2019 11:55 Results for this PM CDT procedure are i n the results section. PREPARE RBC STAT 10/18/2019 11:54 Results for this PM CDT procedure are i n the results section. PREPARE RBC STAT 10/18/2019 11:54 Results for this PM CDT procedure are i n the results section. CBC (HEMOGRAM ONLY) Routine 10/18/2019 8:26 Resu lts for this PM CDT procedure are i n the results section. TRANSFUSION SERVICE 10/18/2019 6:05 REPORT - SCAN PM CDT POCT-GLUCOSE METER Routine 10/18/2019 5:16 Resul ts for this PM CDT procedure are i n the results section. CBC (HEMOGRAM ONLY) Routine 10/18/2019 12:20 Resu lts for this PM CDT procedure are i n the results section. POCT-GLUCOSE METER Routine 10/18/2019 12:01 Resul ts for this PM CDT procedure are i n the results section. BLOOD GAS, ARTERIAL Routine 10/18/2019 5:05 Resu lts for this AM CDT procedure are i n the results section. PT/APTT Routine 10/18/2019 4:09 Results for this AM CDT procedure are i n the results section. PHOSPHORUS Routine 10/18/2019 4:09 Results for this AM CDT procedure are i n the results section. MAGNESIUM Routine 10/18/2019 4:09 Results for this AM CDT procedure are i n the results section. BASIC METABOLIC PANEL Routine 10/18/2019 4:09 Re sults for this (7) AM CDT procedure are i n the results section. CBC (HEMOGRAM ONLY) Routine 10/18/2019 4:09 Resu lts for this AM CDT procedure are i n the results section. XR CHEST 1 VIEW STAT 10/18/2019 3:48 Results for this PORTABLE/BEDSIDE AM CDT procedure a re in the results section. BLOOD GAS, ARTERIAL STAT 10/18/2019 1:22 Resu lts for this AM CDT procedure are i n the results section. POCT-GLUCOSE METER Routine 10/18/2019 12:42 Resul ts for this AM CDT procedure are i n the results section. PT/APTT Routine 10/17/2019 10:18 Results for this PM CDT procedure are i n the results section. BLOOD GAS, ARTERIAL Routine 10/17/2019 10:18 Resu lts for this PM CDT procedure are i n the results section. PHOSPHORUS Routine 10/17/2019 10:18 Results for this PM CDT procedure are i n the results section. MAGNESIUM Routine 10/17/2019 10:18 Results for this PM CDT procedure are i n the results section. BASIC METABOLIC PANEL Routine 10/17/2019 10:18 Re sults for this (7) PM CDT procedure are i n the results section. CBC (HEMOGRAM ONLY) Routine 10/17/2019 10:18 Resu lts for this PM CDT procedure are i n the results section. PREPARE PLATELETS STAT 10/17/2019 9:19 Result s for this PM CDT procedure are i n the results section. PREPARE PLASMA STAT 10/17/2019 9:19 Results f or this PM CDT procedure are i n the results section. TRANSFUSE LEUKO-REDUCED Routine 10/17/2019 8:23 RED BLOOD CELLS PM CDT TRANSFUSE LEUKO-REDUCED Routine 10/17/2019 7:57 RED BLOOD CELLS PM CDT HGB/HCT (H&H) - STAT STAT 10/17/2019 7:50 Res ults for this LAB PM CDT procedure are i n the results section. GLUCOSE-STAT LAB STAT 10/17/2019 7:50 Results for this PM CDT procedure are i n the results section. POTASSIUM-STAT LAB STAT 10/17/2019 7:50 Resul ts for this PM CDT procedure are i n the results section. SODIUM NA-STAT LAB STAT 10/17/2019 7:50 Resul ts for this PM CDT procedure are i n the results section. BLOOD GAS, ARTERIAL STAT 10/17/2019 7:50 Resu lts for this PM CDT procedure are i n the results section. CALCIUM, IONIZED STAT 10/17/2019 7:50 Results for this PM CDT procedure are i n the results section. RRL CRITICAL LABS STAT 10/17/2019 7:50 Result s for this (ABG,NA,K,H&H,GLUCOSE) PM CDT proce dure are in the results section. APTT STAT 10/17/2019 7:38 Results for this PM CDT procedure are i n the results section. PROTHROMBIN TIME/INR STAT 10/17/2019 7:38 Res ults for this PM CDT procedure are i n the results section. TRANSFUSE LEUKO-REDUCED Routine 10/17/2019 7:35 RED BLOOD CELLS PM CDT PREPARE RBC STAT 10/17/2019 7:35 Results for this PM CDT procedure are i n the results section. TRANSFUSE LEUKO-REDUCED Routine 10/17/2019 7:21 RED BLOOD CELLS PM CDT HGB/HCT (H&H) - STAT STAT 10/17/2019 6:51 Res ults for this LAB PM CDT procedure are i n the results section. GLUCOSE-STAT LAB STAT 10/17/2019 6:51 Results for this PM CDT procedure are i n the results section. POTASSIUM-STAT LAB STAT 10/17/2019 6:51 Resul ts for this PM CDT procedure are i n the results section. SODIUM NA-STAT LAB STAT 10/17/2019 6:51 Resul ts for this PM CDT procedure are i n the results section. BLOOD GAS, ARTERIAL STAT 10/17/2019 6:51 Resu lts for this PM CDT procedure are i n the results section. CALCIUM, IONIZED STAT 10/17/2019 6:51 Results for this PM CDT procedure are i n the results section. RRL CRITICAL LABS STAT 10/17/2019 6:51 Result s for this (ABG,NA,K,H&H,GLUCOSE) PM CDT proce dure are in the results section. TRANSFUSE LEUKO-REDUCED Routine 10/17/2019 6:41 RED BLOOD CELLS PM CDT TYPE AND SCREEN, STAT 10/17/2019 5:32 Results for this AUTOMATED PM CDT procedure are i n the results section. FL FLUORO NON-SPECIFIC Routine 10/17/2019 5:14 R esults for this UP TO 1 HOUR PM CDT procedure are i n the results section. HGB/HCT (H&H) - STAT Routine 10/17/2019 4:59 Res ults for this LAB PM CDT procedure are i n the results section. GLUCOSE-STAT LAB Routine 10/17/2019 4:59 Results for this PM CDT procedure are i n the results section. POTASSIUM-STAT LAB Routine 10/17/2019 4:59 Resul ts for this PM CDT procedure are i n the results section. SODIUM NA-STAT LAB Routine 10/17/2019 4:59 Resul ts for this PM CDT procedure are i n the results section. BLOOD GAS, ARTERIAL Routine 10/17/2019 4:59 Resu lts for this PM CDT procedure are i n the results section. RRL CRITICAL LABS Routine 10/17/2019 4:59 Result s for this (ABG,NA,K,H&H,GLUCOSE) PM CDT proce dure are in the results section. TISSUE EXAM AP Routine 10/17/2019 4:26 Results for this PM CDT procedure are i n the results section. HGB/HCT (H&H) - STAT Routine 10/17/2019 3:20 Res ults for this LAB PM CDT procedure are i n the results section. GLUCOSE-STAT LAB Routine 10/17/2019 3:20 Results for this PM CDT procedure are i n the results section. POTASSIUM-STAT LAB Routine 10/17/2019 3:20 Resul ts for this PM CDT procedure are i n the results section. SODIUM NA-STAT LAB Routine 10/17/2019 3:20 Resul ts for this PM CDT procedure are i n the results section. BLOOD GAS, ARTERIAL Routine 10/17/2019 3:20 Resu lts for this PM CDT procedure are i n the results section. RRL CRITICAL LABS Routine 10/17/2019 3:20 Result s for this (ABG,NA,K,H&H,GLUCOSE) PM CDT proce dure are in the results section. SPLENECTOMY 10/17/2019 1:39 Chronic PM CDT pancreatitis, unspecified pancreatitis type (HCC) Splenic vein thrombosis CHOLECYSTECTOMY 10/17/2019 1:39 Chronic PM CDT pancreatitis, unspecified pancreatitis type (HCC) Splenic vein thrombosis POCT-GLUCOSE METER Routine 10/17/2019 6:21 Resul ts for this AM CDT procedure are i n the results section. POCT-GLUCOSE METER Routine 10/17/2019 1:06 Resul ts for this AM CDT procedure are i n the results section. CT ABDOMEN/PELVIS WITH Routine 10/16/2019 10:43 R esults for this & WITHOUT IV CONTRAST AM CDT proced ure are in the results section. REPORT OF PROCEDURE - 10/15/2019 6:42 ENDOSCOPY URL PM CDT UPPER 10/15/2019 6:02 Acute pancreatitis, ENDOSCOPY,ULTRASOUND PM CDT unspecified complication status, unspecified pancreatitis type Special Needs (LINEAR SCOPE) POCT-GLUCOSE METER Routine 10/15/2019 12:47 PM Re sults for this CDT procedure are i n the results section . POCT-GLUCOSE METER Routine 10/15/2019 12:14 PM Re sults for this CDT procedure are i n the results section . POCT-GLUCOSE METER Routine 10/15/2019 8:52 AM Re sults for this CDT procedure are i n the results section . POCT-GLUCOSE METER Routine 10/15/2019 8:31 AM Re sults for this CDT procedure are i n the results section . URINALYSIS W/ Routine 10/15/2019 8:13 AM Results for this MICROSCOPIC CDT procedure are i n the results section . PT/APTT Routine 10/15/2019 5:32 AM Results for this CDT procedure are i n the results section . CBC (HEMOGRAM ONLY) Routine 10/15/2019 5:32 AM R esults for this CDT procedure are i n the results section . COMPREHENSIVE METABOLIC Routine 10/15/2019 5:32 AM Results for this PANEL CDT procedure are i n the results section . IGG SUBCLASS-4 ONLY Routine 10/15/2019 5:32 AM R esults for this CDT procedure are i n the results section . BASIC METABOLIC PANEL Routine 10/14/2019 11:59 AM Results for this (7) CDT procedure are i n the results section . HEPATIC FUNCTION PANEL Routine 10/14/2019 11:59 AM Results for this CDT procedure are i n the results section . XR ABDOMEN / KUB 1 VIEW LAURA 10/14/2019 9:16 AM Results for this CDT procedure are i n the results section . SARS-COV2/RT-PCR ([facility] & Routine 10/14/2019 4:48 AM Results for this REF LABS) CDT procedure are i n the results section . CBC W/PLT COUNT & AUTO Routine 10/14/2019 4:34 AM Results for this DIFFERENTIAL CDT procedure are i n the results section . TRIGLYCERIDES Add-On 10/14/2019 4:34 AM Results for this CDT procedure are i n the results section . LIPASE Add-On 10/14/2019 4:34 AM Results for this CDT procedure are i n the results section . IRON, TIBC, % SAT. Routine 10/14/2019 4:34 AM Re sults for this (WITHOUT FERRITIN) CDT procedure are in the results section . PT/APTT Routine 10/14/2019 4:34 AM Results for this CDT procedure are i n the results section . CBC W/PLT COUNT & AUTO Routine 10/14/2019 4:34 AM Results for this DIFFERENTIAL CDT procedure are i n the results section . MAGNESIUM Routine 10/14/2019 4:34 AM Results for this CDT procedure are i n the results section . HEPATIC FUNCTION PANEL Routine 10/14/2019 4:34 AM Results for this CDT procedure are i n the results section . BASIC METABOLIC PANEL Routine 10/14/2019 4:34 AM Results for this (7) CDT procedure are i n the results section . SARS-COV2/RT-PCR ([facility] & Routine 08/26/2019 7:33 PM Results for this REF LABS) CDT procedure are i n the results section . RHYTHM STRIP - SCAN 02/26/2019 4:18 PM INFORMATION SECURITY ENGINEER TRANSFUSION SERVICE 02/19/2019 6:00 PM REPORT - SCAN INFORMATION SECURITY ENGINEER RHYTHM STRIP - SCAN 02/19/2019 11:21 AM INFORMATION SECURITY ENGINEER PREPARE LEUKO-REDUCED Routine 02/18/2019 11:54 PM Results for this RBC INFORMATION SECURITY ENGINEER procedure are i n the results section . TRANSFUSION SERVICE 02/18/2019 6:00 PM REPORT - SCAN INFORMATION SECURITY ENGINEER FERRITIN Routine 02/18/2019 1:36 PM Results for this INFORMATION SECURITY ENGINEER procedure are i n the results section . COMPREHENSIVE METABOLIC STAT 02/18/2019 1:36 PM Results for this PANEL INFORMATION SECURITY ENGINEER procedure are i n the results section . HEMOGLOBIN AND Routine 02/18/2019 12:16 PM Result s for this HEMATOCRIT INFORMATION SECURITY ENGINEER procedure are i n the results section . TRANSFUSE LEUKO-REDUCED Routine 02/17/2019 2:53 PM RED BLOOD CELLS INFORMATION SECURITY ENGINEER TYPE AND SCREEN, Routine 02/17/2019 9:56 AM Resu lts for this AUTOMATED INFORMATION SECURITY ENGINEER procedure are i n the results section . HEMOGLOBIN AND STAT 02/17/2019 6:19 AM Result s for this HEMATOCRIT INFORMATION SECURITY ENGINEER procedure are i n the results section . LIPASE Routine 02/17/2019 4:18 AM Results for this INFORMATION SECURITY ENGINEER procedure are i n the results section . IRON, TIBC, % SAT. Routine 02/17/2019 4:18 AM Re sults for this (WITHOUT FERRITIN) INFORMATION SECURITY ENGINEER procedure are in the results section . TSH/FREE T4 IF INDICATED Routine 02/17/2019 4:18 AM Results for this INFORMATION SECURITY ENGINEER procedure are i n the results section . VITAMIN B12 AND FOLATE Routine 02/17/2019 4:18 AM Results for this INFORMATION SECURITY ENGINEER procedure are i n the results section . BASIC METABOLIC PANEL Routine 02/17/2019 4:18 AM Results for this (7) INFORMATION SECURITY ENGINEER procedure are i n the results section . CBC (HEMOGRAM ONLY) Routine 02/17/2019 4:18 AM R esults for this INFORMATION SECURITY ENGINEER procedure are i n the results section . HEMOGLOBIN AND Routine 02/16/2019 10:19 AM Result s for this HEMATOCRIT INFORMATION SECURITY ENGINEER procedure are i n the results section . LIPASE Add-On 02/16/2019 4:23 AM Results for this INFORMATION SECURITY ENGINEER procedure are i n the results section . COMPREHENSIVE METABOLIC Routine 02/16/2019 4:23 AM Results for this PANEL INFORMATION SECURITY ENGINEER procedure are i n the results section . CBC (HEMOGRAM ONLY) Routine 02/16/2019 4:23 AM R esults for this INFORMATION SECURITY ENGINEER procedure are i n the results section . PROTHROMBIN TIME/INR Routine 02/16/2019 4:23 AM Results for this INFORMATION SECURITY ENGINEER procedure are i n the results section . PT/APTT Routine 02/16/2019 4:23 AM Results for this INFORMATION SECURITY ENGINEER procedure are i n the results section . HEPATIC FUNCTION PANEL Routine 02/16/2019 4:23 AM Results for this INFORMATION SECURITY ENGINEER procedure are i n the results section . REPORT OF PROCEDURE - 02/15/2019 12:51 PM ENDOSCOPY URL INFORMATION SECURITY ENGINEER FL ERCP Routine 02/15/2019 12:32 PM Results for this INFORMATION SECURITY ENGINEER procedure are i n the results section . CYTOLOGY REQUEST Routine 02/15/2019 12:26 PM Resu lts for this INFORMATION SECURITY ENGINEER procedure are i n the results section . CYTOLOGY AP Routine 02/15/2019 12:26 PM Results for this INFORMATION SECURITY ENGINEER procedure are i n the results section . CBC W/PLT COUNT & AUTO STAT 02/15/2019 11:55 AM Results for this DIFFERENTIAL INFORMATION SECURITY ENGINEER procedure are i n the results section . CBC W/PLT COUNT & AUTO STAT 02/15/2019 11:55 AM Results for this DIFFERENTIAL INFORMATION SECURITY ENGINEER procedure are i n the results section . ERCP,BILIARY STENT 02/15/2019 11:00 AM Jaundice INFORMATION SECURITY ENGINEER ERCP,BALLOON SWEEPING 02/15/2019 11:00 AM Jaundice INFORMATION SECURITY ENGINEER ERCP 02/15/2019 11:00 AM Jaundice INFORMATION SECURITY ENGINEER PROTHROMBIN TIME/INR Routine 02/15/2019 6:00 AM Results for this INFORMATION SECURITY ENGINEER procedure are i n the results section . PT/APTT Routine 02/15/2019 6:00 AM Results for this INFORMATION SECURITY ENGINEER procedure are i n the results section . BASIC METABOLIC PANEL Routine 02/15/2019 6:00 AM Results for this (7) INFORMATION SECURITY ENGINEER procedure are i n the results section . HEPATIC FUNCTION PANEL Routine 02/15/2019 6:00 AM Results for this INFORMATION SECURITY ENGINEER procedure are i n the results section . (CELLAVISION MANUAL Routine 02/14/2019 6:24 AM R esults for this DIFF) INFORMATION SECURITY ENGINEER procedure are i n the results section . CBC W/PLT COUNT & AUTO Routine 02/14/2019 6:24 AM Results for this DIFFERENTIAL INFORMATION SECURITY ENGINEER procedure are i n the results section . CBC W/PLT COUNT & AUTO Routine 02/14/2019 6:24 AM Results for this DIFFERENTIAL INFORMATION SECURITY ENGINEER procedure are i n the results section . PROTHROMBIN TIME/INR Routine 02/14/2019 4:34 AM Results for this INFORMATION SECURITY ENGINEER procedure are i n the results section . PT/APTT Routine 02/14/2019 4:34 AM Results for this INFORMATION SECURITY ENGINEER procedure are i n the results section . BASIC METABOLIC PANEL Routine 02/14/2019 4:34 AM Results for this (7) INFORMATION SECURITY ENGINEER procedure are i n the results section . HEPATIC FUNCTION PANEL Routine 02/14/2019 4:34 AM Results for this INFORMATION SECURITY ENGINEER procedure are i n the results section . after 11/30/2018 Results RHYTHM STRIP - SCAN (10/28/2019 12:11 PM CDT)Only the most recent of3 results within the time period is included. Narrative Performed At This result has an attachment that is no t available. POC-Glucose meter (10/24/2019 8:37 AM CDT)Only the most recent of35 results within the time period is included. POC-Glucose Meter 70Comment: : 70 - 110 mg/dL MAGGIE REYEZ TESTED AT [address], [address]: Potato Bucker/Technici an ID = [id number] for PRINCESS OPAL Specimen Blood Performing Organization Address City/State/Zipcode Phone Number [facility] [address] [address] CENTER PT/aPTT (10/24/2019 6:13 AM CDT)Only the most recent of13 resultswithin the time period is included. Pathologist Sig nature Protime 20.3 (H) 11.9 - 14.[address] [facility] INR 1.79 <=5.[address] [facility] PTT 49.0 (H) 22.5 - 36.[address] [facility] Specimen Blood Narrative Performed At Effective 07/03/2018: PT Reference Range [facility] Change New: 11.9-14.2 Previous: 11.7-14.7 RECOMMENDED COUMADIN/WARFARIN INR THERAPY RANGES STANDARD DOSE: 2.0-3.0 Includes: PROPHYLAXIS for venous thrombosis, systemic embolization; TREATMENT for venous thrombosis and/or pulmonary embolus. HIGH RISK: Target INR is 2.5-3.5 for patients wiht mechanical heart valves. Performing Organization Address City/State/Zipcode Phone Number [facility] [address] [place] [address] CENTER CBC (Hemogram only) (10/24/2019 6:13 AM CDT)Only the most recent of13 results within the time period is included. Pathologist Sig critical [facility] hospital WBC 12.7 (H) 3.5 - 10.5 K/L [facility] RBC 3.15 (L) 4.63 - 6.08 M/L [facility] Hemoglobin 9.1 (L) 13.7 - 17.5 GM/DL [facility] Hematocrit 29.1 (L) 40.1 - 51.0 % [facility] MCV 92.4 (H) 79.0 - 92.[address] [facility] MCH 28.9 25.7 - 32.[address] [facility] MCHC 31.3 (L) 32.3 - 36.5 GM/DL [facility] RDW 15.7 (H) 11.6 - 14.4 % [facility] Platelets 614 (H) 150 - 450 K/CU MM [facility] MPV 10.0 9.4 - 12.[address] [facility] nRBC 0 0 - 0 /[address] [facility] Specimen Blood Performing Organization Address City/[facility]/Zipcode Phone Number [address] [address] CENTER Phosphorus (10/24/2019 6:13 AM CDT)Only the most recent of9 resultswithin the time period is included. Pathologist Sig nature Phosphorus 3.9 2.3 - 4.7 mg/dL [facility] Specimen Blood Narrative Performed At Potato Bucker ID - JESUS L [facility] Potato Bucker ID - THUAN F Performing Organization Address City/[facility] Phone Number [address] [address] CENTER Magnesium (10/24/2019 6:13 AM CDT)Only the most recent of10 resultswithin the time period is included. Pathologist Sig nature Magnesium 1.4 (L) 1.6 - 2.6 mg/dL [facility] Specimen Blood Narrative Performed At Potato Bucker ID - STEWARTAYA L [facility] Performing Organization Address [facility] Cent[facility]ode Phone Number [address] [address] CENTER Basic Metabolic Panel (10/24/2019 6:13 AM CDT)Only the most recent of14 results within the time period is included. Sodium 140 136 - 145 meq/L [facility] Potassium 4.3 3.5 - 5.1 meq/L [facility] Chloride 109 (H) 98 - 107 meq/L [facility] CO2 26 22 - 29 meq/L [facility] BUN 2 (L) 7 - 21 mg/dL [facility] Creatinine 0.50 (L) 0.57 - 1.25 [facility] mg/dL [facility] Glucose 72 70 - 105 mg/dL [facility] Calcium 7.6 (L) 8.4 - 10.2 [facility] mg/dL [facility] EGFR 195Comment: mL/min/1.73 sq [facility] ESTIMATED GFR IS NOT [facility] ACCURATE CENTER CREATININE CLEARANCE IN PREDICTING GLOMERULAR FILTRATION RATE. ESTIMATED GFR IS NOT APPLICABLE FOR DIALYSIS PATIENTS. Specimen Blood Narrative Performed At Potato Bucker HELIO - JESUS Loya [facility] Performing Organization Address City/State/Zipcode Phone Number [facility] [address] [place] [address] CENTER CBC with platelet count + automated diff (10/22/2019 10:27 PM CDT)Only the most recent of4 resultswithin the time period is included. Pathologist Sig nature WBC 11.5 (H) 3.5 - 10.5 [facility] K/L [facility] RBC 4.06 (L) 4.63 - 6.08 [facility] M/[facility] Hemoglobin 12.1 (L) 13.7 - 17.5 [facility] GM/DL [facility] Hematocrit 37.2 (L) 40.1 - 51.0 % [facility] MCV 91.6 79.0 - 92.[address] [facility] MCH 29.8 25.7 - 32.[address] [facility] MCHC 32.5 32.3 - 36.5 [facility] GM/DL [facility] RDW 15.5 (H) 11.6 - 14.4 % [facility] Platelets 568 (H) 150 - 450 K/CU [facility] MPV 11.0 9.4 - 12.[address] [facility] nRBC 0 0 - 0 /[address] [facility] % Neutros 65 % [facility] % Lymphs 10 % [facility] % Monos 10 % [facility] % Eos 14 % [facility] % Baso 1 % [facility] # Neutros 7.41 (H) 1.78 - 5.38 [facility]/L [facility] # Lymphs 1.16 (L) 1.32 - 3.57 [facility] # Monos 1.11 (H) 0.30 - 0.82 [facility] # Eos 1.63 (H) 0.04 - 0.54 [facility] # Baso 0.09 (H) 0.01 - 0.08 [facility] Immature 0 0 - 1 % [facility] Specimen Blood Performing Organization Address City/State/Zipcode Phone Number [facility] [address] [place] [address] CENTER Amylase Peritoneal Fluid (10/21/2019 10:19 AM CDT)Only the most recent of2 resultswithin the time period is included. Pathologist Sig nature AMYLASE, PERITONEAL 9 See Comment U/L [facility] TH FLUID [facility] Specimen Body Fluid - Peter - Mathur drain, becca ce (physical object) Narrative Performed At Amylase activity in peritoneal fluids of [facility] non-pancreatic origin is often less than or CENTER equal to the amylase activity in blood, whereas elevated amylase activity has been reported in fluid of pancreatic origin (five-folds or higher compared to contemporaneously collected blood specimen). This test has been modified from the head automatic sawyer's instructions and its performance characteristics were determined by [facility]. The laboratory is regulated under CLIA as qualified to perform high-complexity testing. This test has not been cleared or approved by the U.S. Food and Drug Administration. The reference intervals and other method performance specifications are unavailable for amylase in peritoneal fluid. Comparison of this result with the blood amylase is recommended. Potato Bucker ID - [id number] Performing Organization Address City/State/Zipcode Phone Number [facility] [address] [place] [address] CENTER SARS-CoV2/RT-PCR (Asymptomatic ONLY) (10/21/2019 7:15 AM CDT)Only the most recent of3 resultswithin the time period is included. SARS-COV2/RT-PCR Negative Not Detected, [facility] ST FISH Negative, See [facility] external report CENTER for linked test SARS-COV-2 [facility] PERFORMING LAB [facility] Specimen Other - Nasopharyngeal wall structure (b devan structure) Narrative Performed At Negative result for this test determines that [facility] SARS-CoV-2 RNA was not present in the specimen above the Limit of Detection (LOD). However, Negative results do not preclude SARS-CoV-2 infection and should not be used as the sole basis for treatment or patient management decisions. Negative results must be combined with clinical observations, patient history, and epidemiological information. A false negative result may occur if a specimen is improperly collected, transported or handled. A false negative result should be considered if patient's recent exposures or clinical presentation indicate that COVID-19 (SARS-CoV-2) is likely and diagnostic tests for other causes of illness are negative. Re-testing should be considered in cases of suspected false negatives. The limit of detection for this assay is 800 copies/mL. This SARS CoV-2 test is a real-time RT-PCR test intended for the qualitative detection of nucleic acid from SARS-CoV-2 in a nasopharyngeal swab specimen collected from individuals suspected of COVID-19 by their healthcare provider. This test has not been Food and Drug Administration (FDA) cleared or approved. This is a modified version of an approved Emergency Use Authorization (EUA) and is in the process of review by the FDA. Once authorized by the FDA, the issued EUA will be effective until the declaration that circumstances exist justifying the authorization of the emergency use of in vitro diagnostic tests for detection and/or diagnosis of COVID-19 is terminated under Section 564(b)(2) of the Act or the EUA is revoked under Section 564(g) of the Act. Fact Sheet for Healthcare Providers: https://www.[employer]/sites/default/files/pro duct/documents/Fact_Sheet_HC_Providers_Lyra_SA RS-CoV-2.pdf Fact Sheet for Healthcare Patients: https://www.[employer]/sites/default/files/pro duct/documents/Fact_Sheet_Patients_Lyra_SARS-C oV-2.pdf Performing Laboratory: [place] [address] Performing Organization Address City/State/[place] [address] CENTER TRANSFUSION SERVICE REPORT - SCAN (10/19/2019 6:01 PM CDT)Only the most recent of4 resultswithin the time period is included. Narrative Performed At This result has an attachment that is no t available. XR chest 1 view portable / bedside (10/19/2019 8:05 AM CDT)Only the most recent of2 resultswithin the time period is included. Specimen Narrative Performed At FINAL REPORT [facility] RAD, CHEST, 1 VIEW, NON DEPT INDICATION: s/p intubation, s/p laparoto my, eval for pulm edema \\T\\ pleural effusion COMPARISON: Prior day's exam FINDINGS: Portable frontal view of the c hest. IMPRESSION: Support Lines: NG tube descends below th e diaphragm. Central catheter is unchanged. Linear radiopaque density which may represent an IABP marker is noted 14 cm below the top of t he aortic arch. Lungs and pleura: Unchanged airspace and pleural opacities. No pneumothorax. Heart and mediastinum: Stable contours. Stable surgical changes. Additional findings: None. Signed: Catherine Hull MD Report Verified Date/Time: 10/19/2019 08:14:40 Reading Location: [id number] Procedure Note Interface, External Ris In - 10/19/2019 8:16 AM CDT FINAL REPORT RAD, CHEST, 1 VIEW, NON DEPT INDICATION: s/p intubation, s/p laparoto my, eval for pulm edema \\T\\ pleural effusion COMPARISON: Prior day's exam FINDINGS: Portable frontal view of the c hest. IMPRESSION: Support Lines: NG tube descends below th e diaphragm. Central catheter is unchanged. Linear radiopaque density which may represent an IABP marker is noted 14 cm below the top of t he aortic arch. Lungs and pleura: Unchanged airspace and pleural opacities. No pneumothorax. Heart and mediastinum: Stable contours. Stable surgical changes. Additional findings: None. Signed: Catherine Hull MD Report Verified Date/Time: 10/19/2019 0 8:14:40 Reading Location: [address] Performing Organization Address City/[facility]/Zipcode Phone Number [facility] Blood gas, arterial (10/19/2019 1:29 AM CDT)Only the most recent of8 results within the time period is included. Pathologist Sig nature pH, Arterial 7.45 7.35 - 7.[address] [facility] pCO2, Arterial 30 (L) 35 - [address] [facility] pO2, Arterial 166 (H) 80 - [address] [facility] O2 Sat, Arterial 99.2 (H) 96.0 - 97.0 % [facility] HCO3, Arterial 20 (L) 21 - 29 mmol/L [facility] Base Excess, Arterial -3.0 (L) -2.0 - 3.0 [facility] mmol/L [facility] Patient Temperature 37.[address] [facility] FIO2 40.0 % [facility] Specimen Blood, Arterial Performing Organization Address City/State/Zipcode Phone Number [place] [phone] [place] [address] CENTER Prepare RBC (10/18/2019 11:55 PM CDT)Only the most recent of4 resultswithin the time period is included. Pathologist Sig nature CROSSMATCH COMPATIBLE SAFETRACE TX Unit ABO A Pos SAFETRACE TX UNIT NUMBER [id number] SAFETRACE TX Status RETURNED FROM ISSUE SAFETRACE TX Blood Bank Product RED BLOOD CELLS SAFETRACE TX PRODUCT CODE [id number] SAFETRACE TX CROSSMATCH COMPATIBLE SAFETRACE TX Unit ABO A Pos SAFETRACE TX UNIT NUMBER [id number] SAFETRACE TX Status TX_TIMEINCHART SAFETRACE TX Blood Bank Product RED BLOOD CELLS SAFETRACE TX PRODUCT CODE [id number] SAFETRACE TX Performing Organization Address [facility] Phone Number SAFETRACE TX Prepare PLT (10/17/2019 9:19 PM CDT) Pathologist Sig nature Unit ABO O Pos SAFETRACE TX UNIT NUMBER [id number] SAFETRACE TX Status RETURNED FROM ISSUE SAFETRACE TX Blood Bank Product PLATELETS SAFETRACE TX PRODUCT CODE [id number] SAFETRACE TX Performing Organization Address [facility] Phone Number SAFETRACE TX Prepare plasma (10/17/2019 9:19 PM CDT) Pathologist Sig nature Unit ABO A Pos SAFETRACE TX UNIT NUMBER [id number] SAFETRACE TX Status RETURNED FROM ISSUE SAFETRACE TX Blood Bank Product FFP SAFETRACE TX PRODUCT CODE [id number] SAFETRACE TX Unit ABO A Pos SAFETRACE TX UNIT NUMBER [id number] SAFETRACE TX Status RETURNED FROM ISSUE SAFETRACE TX Blood Bank Product FFP SAFETRACE TX PRODUCT CODE [id number] SAFETRACE TX Performing Organization Address [facility] Phone Number SAFETRACE [place] Transfuse Leuko-Red RBC (10/17/2019 8:23 PM CDT)Only the most recent of6 resultswithin the time period is included.Potassium-Stat Lab (10/17/2019 7:50 PM CDT)Only the most recent of4 resultswithin the time period is included. Pathologist Sig nature Potassium 4.5 3.6 - 5.5 meq/L [facility] Specimen Blood, Arterial Performing Organization Address [facility] Phone Number [address] [address] [place] Sodium Na-Stat Lab (10/17/2019 7:50 PM CDT)Only the most recent of4 results within the time period is included. Pathologist Sig nature Sodium 135 (L) 136 - 145 meq/L [facility] Specimen Blood, Arterial Performing Organization Address [facility] Phone Number [address] [address] CENTER Glucose-Stat Lab (10/17/2019 7:50 PM CDT)Only the most recent of4 resultswithin the time period is included. Pathologist Sig nature Glucose 182 (H) 70 - 110 mg/dL [facility] Specimen Blood, Arterial Performing Organization Address [facility] Phone Number [address] [address] [place] HGB/HCT (H&H)-Stat Lab (10/17/2019 7:50 PM CDT)Only the most recent of4 resultswithin the time period is included. Pathologist Sig nature Hemoglobin 13.9 13.0 - 16.8 g/dL [facility] Hematocrit 41.0 40.0 - 50.0 % [facility] Specimen Blood, Arterial Performing Organization Address [facility] Phone Number [address] [address] CENTER Calcium, Ionized (10/17/2019 7:50 PM CDT)Only the most recent of2 resultswithin the time period is included. Pathologist Sig nature Calcium, Ion 1.65 (HH) 1.12 - 1.27 mmol/L [facility] pH, Blood 7.[address] [facility] Specimen Blood Performing Organization Address City/State/Zipcode Phone Number [address] [address] CENTER aPTT (10/17/2019 7:38 PM CDT) Pathologist Sig nature PTT 38.7 (H) 22.5 - 36.[address] [facility] Specimen Blood Performing Organization Address [facility] Cent[facility] Phone Number [address] [address] CENTER Prothrombin time/INR (10/17/2019 7:38 PM CDT)Only the most recent of4 results within the time period is included. Pathologist Sig nature Protime 21.8 (H) 11.9 - 14.[address] [facility] INR 1.96 <=5.[address] [facility] Specimen Blood Narrative Performed At Effective 07/03/2018: PT Reference Range [facility] Change New: 11.9-14.2 Previous: 11.7-14.7 RECOMMENDED COUMADIN/WARFARIN INR THERAPY RANGES STANDARD DOSE: 2.0-3.0 Includes: PROPHYLAXIS for venous thrombosis, systemic embolization; TREATMENT for venous thrombosis and/or pulmonary embolus. HIGH RISK: Target INR is 2.5-3.5 for patients wiht mechanical heart valves. Performing Organization Address [facility] Phone Number [address] [address] CENTER Type and screen, automated (10/17/2019 5:32 PM CDT)Only the most recent of2 resultswithin the time period is included. Pathologist Sig nature ABO/RH AUTOMATED A POSITIVE [facility] ([facility] [place] Ab Scrn NEGATIVE [facility] Specimen Blood Performing Organization Address [facility]/Zipcode Phone Number [address] [address] [place] fluoro non-specific up to 1 hour (10/17/2019 5:14 PM CDT) Specimen Narrative Performed At Fluoroscopic unit utilized for a procedure performed i n the OR. No GE RIS interpretation was requested. Refer to the operative report for findings. Refer to PACS for patient radiation dose i nformation. Procedure Note Interface, External Ris In - 10/21/2019 2:43 PM CDT Fluoroscopic unit utilized for a procedu re performed in the OR. No interpretation was requested. Refer to the operative r eport for findings. Refer to PACS for patient radiation dose information. Performing Organization Address City/State/Zipcode Phone Number GE RIS Tissue Exam (10/17/2019 4:26 PM CDT) Case Report Surgical Pathology Report Case: [id number] [facility] Authorizing Provider: Marc Mathews MD Collected: 10/17/2019 04:26 PM [facility] Ordering Location: [facility] PERIOPERATIVE Received: 10/20/2019 08:32 AM MEDICAL CENTER SERVICES Pathologist: Carmina Grewal MD Specimens: A) - Gallbladd er B) - Sple en DIAGNOSIS A. GALLBLADDER, CHOLECYSTECTOMY: [facility] Electronically - CHRONIC CHOLECYSTITIS AND CHOLESTEROLOSIS [facility] signed by Carmina, - NO GALLSTONE PRESENT [facility] MD Carmina on 10/22/2019 at 4 :34 B. SPLEEN, SPLENECTOMY: PM - WEIGHT: 272 GM - SPLENOMEGALY - MILD VASCULAR CONGESTION, NO SIGNIFICANT PATHOLOG IC ABNORMALITY - NEGATIVE FOR MALIGNANCY OR LYMPHOMA CC/pl Signing Pathologist Direct Phone Line: CPT Code(s) 79725; [address] [facility] CLINICAL HISTORY Preop diagnosis: [facility] Chronic pancreatitis, [facility] unspecified MEDICAL CENTER pancreatitis type and splenic vein thrombosis. SPECIMEN SOURCE Gallbladder and spleen [facility] GROSS DESCRIPTION A. Received fresh labeled wi th the patient's name, accession number and "gallbladder"is a 7.5 cm in length x 1.5 cm in diameter, previously opened gallbladder. There is no attached cystic duct and no ly [facility] mph node identified. The ser elma is galvan-purple, smooth and hyperemic. Upon opening, there is no bile or calculus present. The mucosa is york-brown and velvety. The wall thickness is 0.2 cm. Assisted Living Manager sections are submitted in cassette A1-A2. [facility] B. Received fresh labeled wi th the patient's name, accession number and " spleen" is a 272 gm, 15.0 x 10.0 x 2.5 cm spleen with a scant amount of attached hilar fat. The capsule is galvan-maroon and intac t, no subcapsular laceration is identified. The cut surface displays a red- brown, homogeneous and unremarkable parenchyma. No masses are identified. Ink code: Blue - capsule Section code: B1, full-thickness section capsule to hilar margin B2, parenchyma to hilar margin MICROSCOPIC Performed [facility] Specimen Tissue - Gallbladder structure (body str ucture) Tissue specimen (specimen) - Splenic str ucture (body structure) Performing Organization Address City/State/Zipcode Phone Number [facility] [address] [place] [address] abdomen/pelvis without & with IV contrast (10/16/2019 10:43 AM CDT) Specimen Narrative Performed At FINAL REPORT [employer] TECHNIQUE: CT of the abdomen and pelvis WITHOUT and WITH intravenous contrast and WITHOUT oral contrast. Dose modulation, iterative reconstruction, and/or weight-based adju stment of the mA/kV was utilized to reduce the radiation dose to as low as reasonably achievable. INDICATION: Epigastric pain, concern for splenic vein thrombosis.. COMPARISON: 07/13/2018, noncontrast CT, 06/05/2018 FINDINGS: LOWER THORAX: Small bilateral pleural ef fusions with lower lobe atelectasis.. HEPATOBILIARY: No focal hepatic lesions. Gallbladder is unremarkable. There is mild intra and extra hepatic bi liary duct dilation with narrowing of the common bile duct in the region of the pancreatic head... SPLEEN: Spleen is mildly enlarged measur ing 14 cm in craniocaudal dimension.. PANCREAS: The visualized pancreas demons trates normal enhancement. There is redemonstration of a hypodense rim surrounding the pancreatic body and tail which are decre ased since the previous exam in 2019. (See axial image 37). Cyst sharmin rostomy stent has been removed. ADRENALS: No adrenal nodules. KIDNEYS/URETERS: No hydronephrosis, ston es, or solid mass lesions. PELVIC ORGANS/BLADDER: Unremarkable. PERITONEUM/RETROPERITONEUM: No free air or fluid. LYMPH NODES: No lymphadenopathy. VESSELS: Main portal vein and intrahepat ic portal vein branches are patent. Main portal vein measures 1.4 cm in diameter. There is severe narrowing/occlusion of the portal vein n ear the confluence. Splenic vein is not visualized. There is severe narrowing/occlusion of the superior mesenteric vein at the confluen ce. Distal superior mesenteric vein branches are patent. The re are numerous large perigastric and upper abdominal collater als.. GI TRACT: There is a metallic clip in th e gastric fundus. No distention or wall thickening. Appendix is normal. BONES AND SOFT TISSUES: Unremarkable. 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 This has improved since previous exam in July 2018. 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 Splenomegaly. Mild intra and extrahepatic biliary duct al dilation. Findings may related to distal common bile duct stric ture related to prior pancreatitis. Small volume ascites and small bilateral pleural effusions. Signed: Jessenia Newman MD Report Verified Date/Time: 10/16/2019 13:25:44 Reading Location: [facility] C013Y CT Body R [facility] Procedure Note Interface, External Ris In - 10/16/2019 1:27 PM CDT FINAL REPORT TECHNIQUE: CT of the abdomen and pelvis WITHOUT and WITH intravenous contrast and WITHOUT oral contrast. Dose modulation, iterative reconstruction, and/or weight-based adju stment of the mA/kV was utilized to reduce the radiation dose to as low as reasonably achievable. INDICATION: Epigastric pain, concern for splenic vein thrombosis.. COMPARISON: 07/13/2018, noncontrast CT, 06/05/2018 FINDINGS: LOWER THORAX: Small bilateral pleural ef fusions with lower lobe atelectasis.. HEPATOBILIARY: No focal hepatic lesions. Gallbladder is unremarkable. There is mild intra and extra hepatic bi liary duct dilation with narrowing of the common bile duct in the region of the pancreatic head... SPLEEN: Spleen is mildly enlarged measur ing 14 cm in craniocaudal dimension.. PANCREAS: The visualized pancreas demons trates normal enhancement. There is redemonstration of a hypodense rim surrounding the pancreatic body and tail which are decre ased since the previous exam in 2019. (See axial image 37). Cyst sharmin rostomy stent has been removed. ADRENALS: No adrenal nodules. KIDNEYS/URETERS: No hydronephrosis, ston es, or solid mass lesions. PELVIC ORGANS/BLADDER: Unremarkable. PERITONEUM/RETROPERITONEUM: No free air or fluid. LYMPH NODES: No lymphadenopathy. VESSELS: Main portal vein and intrahepat ic portal vein branches are patent. Main portal vein measures 1.4 cm in diameter. There is severe narrowing/occlusion of the portal vein n ear the confluence. Splenic vein is not visualized. There is severe narrowing/occlusion of the superior mesenteric vein at the confluen ce. Distal superior mesenteric vein branches are patent. The re are numerous large perigastric and upper abdominal collater als.. GI TRACT: There is a metallic clip in th e gastric fundus. No distention or wall thickening. Appendix is normal. BONES AND SOFT TISSUES: Unremarkable. 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 This has improved since previous exam in July 2018. 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 Splenomegaly. Mild intra and extrahepatic biliary duct al dilation. Findings may related to distal common bile duct stric ture related to prior pancreatitis. Small volume ascites and small bilateral pleural effusions. Signed: Jessenia Newman MD Report Verified Date/Time: 10/16/2019 1 3:25:44 Reading Location: [facility] C013Y CT Body R eading Room Performing Organization Address City/State/Zipcode Phone Number [employer] REPORT OF PROCEDURE - ENDOSCOPY URL (10/15/2019 6:42 PM CDT) Narrative Performed At This result has an attachment that is no t available. Urinalysis w/Microscopic (10/15/2019 8:13 AM CDT) Color, UA Yellow [facility] Clarity, UA Hazy [facility] Specific [place], 1.010 1.001 - 1.035 [facility] pH, UA 6.5 5.0 - 8.[address] [facility] Protein, UA 20 mg/dL (A) Negative [facility] Glucose, UA Negative Negative [facility] Ketones, UA 100 mg/dL (A) Negative [facility] Bilirubin, UA Negative Negative [facility] Blood, UA Negative Negative [facility] Nitrite, UA Negative Negative [facility] Leukocytes, UA Negative Negative [facility] Urobilinogen, UA 0.2 0.2 - 1.0 mg/dL [facility] RBC, UA 0 /HPF [facility] WBC, UA 0 /HPF [facility] Bacteria, UA Occasional [facility] Mucus Occasional [facility] Squam Epithel, UA <1 /HPF [facility] Yeast Few [facility] Specimen Source [facility] Specimen Urine Narrative Performed At Potato Bucker ID - [auto] [facility] Potato Bucker ID - moe Performing Organization Address City/State/Zipcode Phone Number [facility] [address] [place] [address] CENTER IGG SUBCLASS-4 ONLY (10/15/2019 5:32 AM CDT) Pathologist Sig nature Igg 4 64.5 4 - 86 mg/dL [facility] D Specimen Blood Narrative Performed At Performing Lab [facility] EZ [facility] [place] [address] [place] [address] Elma Herman MD, PhD, VENKATA Performing Organization Address City/[facility] Phone Number [place] [address] INCORPORATED [id number] [facility] Comprehensive metabolic panel (10/15/2019 5:32 AM CDT)Only the most recent of3 resultswithin the time period is included. Protein, Total 5.2 (L) 6.0 - 8.3 [facility] gm/dL [facility] Albumin 2.7 (L) 3.5 - 5.0 [facility] g/dL [facility] Alkaline 120 40 - 150 U/L [facility] Phosphatase [facility] Total Bilirubin 0.8 0.2 - 1.2 [facility] mg/dL [facility] Sodium 138 136 - 145 [facility] meq/L [facility] Potassium 3.9 3.5 - 5.1 [facility] meq/L [facility] Chloride 106 98 - 107 [facility] meq/L [facility] CO2 21 (L) 22 - 29 meq/L [facility] BUN 6 (L) 7 - 21 mg/dL [facility] Creatinine 0.60 0.57 - 1.25 [facility] mg/dL [facility] Glucose 53 (L) 70 - 105 [facility] mg/dL [facility] Calcium 8.0 (L) 8.4 - 10.2 [facility] mg/dL [facility] AST 24 5 - 34 U/L [facility] ALT 12 6 - 55 U/L [facility] EGFR 158Comment: mL/min/1.73 [facility] ESTIMATED GFR IS sq [facility] NOT ACCURATE MEDICAL CENTER CREATININE CLEARANCE IN PREDICTING GLOMERULAR FILTRATION RATE. ESTIMATED GFR IS NOT APPLICABLE FOR DIALYSIS PATIENTS. Specimen Blood Narrative Performed At Potato Bucker ID - PIAYA L [facility] Performing Organization Address City/State/Zipcode Phone Number [facility] [address], [place] [phone] CENTER Hepatic function panel (10/14/2019 11:59 AM CDT)Only the most recent of5 results within the time period is included. Pathologist Sig nature Protein, Total 5.1 (L) 6.0 - 8.3 gm/dL [facility] Albumin 2.7 (L) 3.5 - 5.0 g/dL [facility] Total Bilirubin 0.7 0.2 - 1.2 mg/dL [facility] Bilirubin, Direct 0.4 0.1 - 0.5 mg/dL [facility] Alkaline Phosphatase 114 40 - 150 U/L [facility] AST 20 5 - 34 U/L [facility] ALT 11 6 - 55 U/L [facility] Specimen Blood Narrative Performed At Potato Bucker ID - KIRA Jacobsen [facility] Performing Organization Address City/[facility]/Zipcode Phone Number [facility] [address], [place] [phone] LILLIAN XR abdomen / KUB 1 view (10/14/2019 9:16 AM CDT) Specimen Narrative Performed At FINAL REPORT GE RIS TECHNIQUE: Frontal view of the abdomen. INDICATION: 29-year-old man with common bile duct stent. COMPARISON: None. IMPRESSION: No stent identified in the expected edmundo on of the bile ducts. Nonobstructive bowel gas pattern. Bones are unremarkable. Retained contras t in the bladder. Clip projects over the left upper quadrant. Signed: Adán Herrmann MD Report Verified Date/Time: 10/14/2019 09:37:48 Reading Location: [facility] Reading Room - [place] [address] Procedure Note Interface, External Ris In - 10/14/2019 9:39 AM CDT FINAL REPORT TECHNIQUE: Frontal view of the abdomen. INDICATION: 29-year-old man with common bile duct stent. COMPARISON: None. IMPRESSION: No stent identified in the expected edmundo on of the bile ducts. Nonobstructive bowel gas pattern. Bones are unremarkable. Retained contras t in the bladder. Clip projects over the left upper quadrant. Signed: Adán Herrmann MD Report Verified Date/Time: 10/14/2019 0 9:37:48 Reading Location: [facility] Imagin Reading Room - [place] [id number] Performing Organization Address City/[facility]/Zipcode Phone Number RIS Iron, TIBC, % sat. (without ferritin) (10/14/2019 4:34 AM CDT)Only the most recent of2 resultswithin the time period is included. Pathologist Sig nature Iron 32.0 (L) 40.0 - 160.0 [facility] ug/dL [facility] TIBC 214 (L) 250 - 450 ug/dL [facility] Iron % Saturation 15 (L) 20 - 55 % [facility] Specimen Blood Narrative Performed At Potato Bucker ID - KIRA Jacobsen [facility] Performing Organization Address [facility] CenterInfrasoft Technologiesvt Phone Number [address] [address] CENTER Triglycerides (10/14/2019 4:34 AM CDT) Pathologist Sig nature Triglycerides 66 mg/dL [facility] Specimen Blood Narrative Performed At TRIGLYCERIDE REFERENCE RANGE [facility] Low Risk <150 Borderline Risk 150-199 High Risk 200-499 Very High Risk >=500 Potato Bucker ID - KIRA Jacobsen Performing Organization Address [facility] Centercode Phone Number [address] [address] CENTER Lipase (10/14/2019 4:34 AM CDT)Only the most recent of3 resultswithin the time period is included. Pathologist Sig nature Lipase 390 (H) 8 - 78 U/L [facility] Specimen Blood Narrative Performed At Potato Bucker ID - KIRA Jacobsen [facility] Performing Organization Address City/[facility] Centercode Phone Number [address] [address] CENTER Prepare Leuko-Red RBC (02/18/2019 11:54 PM INFORMATION SECURITY ENGINEER) Pathologist Sig nature CROSSMATCH COMPATIBLE SAFETRACE TX Unit ABO A Pos SAFETRACE TX UNIT NUMBER [id number] SAFETRACE TX Status TX_TIMEINCHART SAFETRACE TX Blood Bank Product RED BLOOD CELLS SAFETRACE TX PRODUCT CODE [id number] SAFETRACE TX Specimen Other Performing Organization Address [facility] Phone Number SAFETRACE TX Ferritin (02/18/2019 1:36 PM INFORMATION SECURITY ENGINEER) Pathologist Sig nature Ferritin 187 5 - 275 ng/mL [facility] Specimen Blood Narrative Performed At Potato Bucker ID - LA [facility] Performing Organization Address [facility] Phone Number [address] [address] CENTER Hemoglobin and hematocrit (02/18/2019 12:16 PM INFORMATION SECURITY ENGINEER)Only the most recent of3 resultswithin the time period is included. Pathologist Sig nature Hemoglobin 9.0 (L) 13.7 - 17.5 GM/DL [facility] Hematocrit 29.6 (L) 40.1 - 51.0 % [facility] Specimen Blood - Entire right upper arm (body str ucture) Narrative Performed At Potato Bucker ID - [id number] [facility] Performing Organization Address [facility] Centercovt Phone Number [address] [address] CENTER Vitamin B12 and Folate (02/17/2019 4:18 AM INFORMATION SECURITY ENGINEER) Pathologist Sig nature Vitamin B12 665 213 - 816 pg/mL [facility] Folate 12.3 >=7.0 ng/mL [facility] Specimen Blood Narrative Performed At Potato Bucker ID - SOTERO Hernandez [facility] Performing Organization Address City/State/Zipcode Phone Number [facility] [address] [place] [phone] CENTER TSH/Free T4 If Indicated (02/17/2019 4:18 AM INFORMATION SECURITY ENGINEER) Pathologist Sig nature TSH 2.31 0.35 - 4.94 uIU/mL [facility] Specimen Blood Narrative Performed At Potato Bucker ID - SOTERO Hernandez [facility] Performing Organization Address City/[facility]/Zipcode Phone Number [facility] [address] [place] [address] CENTER REPORT OF PROCEDURE - ENDOSCOPY URL (02/15/2019 12:51 PM INFORMATION SECURITY ENGINEER) Narrative Performed At This result has an attachment that is no t available. [place] ERCP (02/15/2019 12:32 PM INFORMATION SECURITY ENGINEER) Specimen Narrative Performed At FINAL REPORT GE RIS A fluoroscopic unit was utilized for a p rocedure performed in the operating room. No interpretation was re quested. Please refer to the operative report regarding findings. Ple ase refer to PACS for patient radiation dose information. Signed: Farzad Bowman MD Report Verified Date/Time: 02/16/2019 09:17:37 Reading Location: [facility] B1 C013Y CT Body R eading Room Procedure Note Interface, External Ris In - 02/16/2019 9:19 AM INFORMATION SECURITY ENGINEER FINAL REPORT A fluoroscopic unit was utilized for a p rocedure performed in the operating room. No interpretation was re quested. Please refer to the operative report regarding findings. Ple ase refer to PACS for patient radiation dose information. Signed: Farzad Bowman MD Report Verified Date/Time: 02/16/2019 0 9:17:37 Reading Location: [facility] B1 C013Y CT Body R eading Room Performing Organization Address City/State/Zipcode Phone Number GE RIS CYTOLOGY REQUEST (02/15/2019 12:26 PM INFORMATION SECURITY ENGINEER) Pathologist Sig nature Cytology See Separate Report [facility] Specimen Brushings - Common bile duct structure ( body structure) Performing Organization Address City/State/Zipcode Phone Number [facility] [address] [place] [address] CENTER Cytology (02/15/2019 12:26 PM INFORMATION SECURITY ENGINEER) Pathologist Sig nature Case Report Medical Cytology Report Case: [id number] [facility] Authorizing Provider: Uriah Casper i Collected: 02/15/2019 1226 [facility] Ordering Location: [address] Received: 02/15/2019 1529 [facility] Service Pathologist: Nereyda Causey MD Specimen: Common Bile D uct, Distal bile duct brushing in CRR DIAGNOSIS COMMON BILE DUCT BRUSHING (CYTOSPINS AND CELL BLOCK): [facility] Electronically signed - MILDLY ATYPICAL CELLS PRESENT, FAVOR REACTIVE (SE E COMMENT) [facility] by Nereyda Causey MD Signing Pathologist Direct Phone Line: [phone] [place] [id number] on 02/18/2019 at 5:29 PM COMMENT Few mildly atypical [facility] cells are present [facility] and with the [facility] history of stent, a reactive process is favored. Clinical correlation is recommended. CPT Code(s) 41112, [address] [facility] CLINICAL DATA Jaundice, a [facility] localized biliary [facility] stricture with MEDICAL CENTER upstream dilation SPECIMEN SOURCE COMMON BILE DUCT [facility] BRUSHING [facility] GROSS DESCRIPTION 15 mls in cytorich red; 2 cy tospins, cell block (collodion bag) [facility] Collected: [id number] [facility] Received: [id number] [facility] MICROSCOPIC Performed. [facility] DESCRIPTION [facility] STATEMENT OF Satisfactory [facility] ADEQUACY [facility] Gross assessment [facility]. ke's [facility] was performed at [facility] Department of MEDICAL CENTER Pathology, [address] [place] [id number], Technical component [facility] was performed at [facility] Department of MEDICAL CENTER Pathology, [address] [place] [id number], Professional [facility] component was [facility] performed at Department of MEDICAL CENTER Pathology, [address] [place] [id number], Specimen Brushings - Common bile duct structure ( body structure) Narrative Performed At This result has an attachment that is no t available. Performing Organization Address City/State/Zipcode Phone Number [address] [phone] CENTER Manual Differential (02/14/2019 6:24 AM INFORMATION SECURITY ENGINEER) % Neutros 87 % [facility] [facility] % Lymphs 3 % [facility] % Monos 6 % [facility] % Eos 3 % [facility] % Atypical Lymphs 1 (H) 0 - 0 % [facility] # Neutros 7.74 (H) 1.78 - 5.38 [facility] # Lymphs 0.27 (L) 1.32 - 3.57 [facility] # Monos 0.53 0.30 - 0.82 [facility] # Eos 0.27 0.04 - 0.54 [facility] # Atypical Lymphs 0.09 (H) 0.00 - 0.00 [facility] Total Counted [address] [facility] Platelet Morphology Normal [facility] Smudge Cells Present [facility] Polychromasia 2+ moderate [facility] Hypochromia 1+ few [facility] Anisocytosis 2+ moderate [facility] Microcytes 2+ moderate [facility] Poikilocytes 1+ few [facility] Schistocytes 1+ few [facility] Platelet Conc Adequate [facility] Specimen Blood Narrative Performed At [facility] ID - Lorenzo Amaro [facility] User comments: Slide comments: Performing Organization Address City/State/Zipcode Phone Number [facility] [address] [place] [address] CENTER after 11/30/2018 Insurance Payer Benefit Plan / Subscriber ID Effective Phone Address T ype Group Dates MEDICAID - MEDICAID [id number] 2011-Prese Medi caid MEDICAID MGD [employer] nt Non-Co ntract CARE ed CDC REVIEW CDC REVIEW [id number] 2019-[place] [address] [place] [address] Advance Directives For more information, please contact: [phone] Code Status Date Activated Date Inactivated Comments Full Code 10/13/2019 11:29 PM 10/24/2019 3:28 PM This code status was determined by: Patient Full Code 02/14/2019 1:58 AM 02/18/2019 4:47 [...]
--- OUTSIDE RECORDS SUMMARY | 2019-12-01 12:33 | XMS REPORT | Continuity of Care Document ---
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/01/19 [place] SEVERE PANCREATIC [facility] UPPER GI BLEED Active 08/27/[address] ACUTE UPPER GI Active 08/27/19 BLE[place], ACUTE BLOOD [facility] [place] A Illness, 09/01/2019 [place] ILLNESS, Active UNSPECIFIED [facility] t GASTROINTESTINAL Active HEMORRHAGE, [facility] t UNSPECIFIED ACUTE Active POSTHEMORRHAGIC [place] ANEMIA HYPOTENSION, Active [place]PEC[place]IED [place] Medications Medication Details Route Status Patient Ordering Order Source Instructions Provider Date Saline Flush Notes: (Same Active 0.9% as: 2019 [facility] Posiflush) Lidocaine Notes: Active Hydrochloride 10 Preservative 2019 [place] MG/ML Injectable free. (Same Solution as: Xylocaine MPF) Saline Flush Notes: (Same Active 0.9% as: 2019 [facility] Posiflush) pantoprazole Notes: For IV Active additive 80 mg + push 2019 [facility] Sodium Chloride reconstitute 0.9% IV 100 mL with 10 ml 0.9% sodium chloride and push over 2 minutes. (Same as: Protonix) Potassium Notes: Infuse Inactive Chloride at a rate of 2019 10 mEq/hr. (Same as: KCL) ondansetron 2 4 mg = 2 mL, No Longer mg/mL injectable IVP, Q6H, 0 Active 2019 [facility] solution Refill(s) D5NS 1,000 mL 1,000 mL, Active Rate: 100 2019 ml/hr, Infuse over: 10 hr, Route: IV, Dosing Weight 68.409 kg, Total Volume: 1,000, Start date: 08/30/19 8:29:00 CDT, Duration: 30 day, Stop date: 09/29/19 8:28:00 CDT, 1.84, m2, 0 Sodium Chloride 250 mL, Route: Active H 0.9% IV IVPB, Start 2019 [facility] date: 08/29/19 16:33:00 CDT, Duration: 30 day, Stop date: 09/28/19 16:32:00 CDT, PRN Line Flush, 0 Dextrose 50% 12.5 gm, 25 Active Syringe (D50W) mL, Route: 2019 [facility] est IVP, Drug Form: INJ, Dosing Weight 68.409, kg, PRN, PRN Blood Glucose Results, Start date: 08/29/19 16:11:00 CDT, Duration: 30 day, Stop date: 09/28/19 16:10:00 CDT, 0 Glucagon 1 mg, Route: Active IM, Drug form: 2019 [facility] PDR/INJ, PRN, Dosing Weight 68.409, kg, PRN Blood Glucose Results, Start date: 08/29/19 16:11:00 CDT, Duration: 30 day, Stop date: 09/28/19 16:10:00 CDT, 0 Omnipaque 350 Notes: (same Inactive injectable as:Omnipaque 2019 [facility] t solution 350). WASTE: F/P - Black; E - [employer]ash [facility] Potassium Notes: Infuse Inactive Chloride at a rate of 2019 [facility] 10 mEq/hr. (Same as: KCL) Lactulose 667 Notes: (Same Inactive MG/ML Oral as:Chronulac) 2019 [facility] Solution Lactulose 667 Notes: (Same Inactive MG/ML Oral as:Chronulac) 2019 [facility] Solution ondansetron Notes: (Same Active as: Zofran) 2019 [facility] MEDICATION WASTE Product Size: 4 mg Product Wasted: ___ mg Golytely Notes: Inactive (polyethylene 2019 [facility] glycol electrolyte solution 4 Liter bottle) (Same as: Golytely, Colyte) Ondansetron Notes: (Same Inactive as: Zofran) 2019 [facility] MEDICATION WASTE Product Size: 4 mg Product Wasted: ___ mg Acetaminophen 2 tab, PO, Inactive 325 MG / Q4H, PRN for 2019 [facility] Hydrocodone pain, # 84 Bitartrate 5 MG [...] Ondansetron Notes: (Same Active as: Zofran) 2019 [facility] MEDICATION WASTE Product Size: 4 mg Product Wasted: ___ mg pantoprazole Notes: For IV No Longer additive 80 mg + push Active 2019 [facility] Sodium Chloride reconstitute 0.9% IV 100 mL with 10 ml 0.9% sodium chloride and push over 2 minutes. (Same as: Protonix) Trazodone Notes: (Same Active As: Desyrel) 2019 [facility] Maalox Advanced Notes: Active Regular Strength (aluminum 2019 [facility] SUSP hydroxide-magn esium hyd-simethicon e [phone]/5 ml 30 ml ud DAKOTAH) Albuterol 0.833 Notes: (Same Active MG/ML / as: Duoneb) 2019 [facility] Ipratropium [place] 0.167 MG/ML Inhalant Solution [DuoNeb] Docusate Sodium Notes: (Same Active 100 MG Oral as: Colace) 2019 [facility] t Capsule [Colace] (Do Not Crush) Robitussin 100 Notes: (Same Active mg/5 mL oral as: 2019 [facility] liquid Robitussin) Zofran Notes: (Same Active as: Zofran) 2019 [facility] MEDICATION WASTE Product Size: 4 mg Product Wasted: ___ mg Hydralazine Notes: (Same Active as: 2019 [facility] Apresoline) Push over 5 minutes Sodium Chloride 1,000 mL, No Longer 0.9% IV 1,000 mL Rate: 100 [facility] 2019 [facility] ml/hr, Infuse over: 10 hr, Route: IV, Dosing Weight 68.409 kg, Total Volume: 1,000, Start date: 08/28/19 2:15:00 CDT, Duration: 30 day, Stop date: 09/27/19 2:14:00 CDT, 1.84, m2, 0 Saline Flush Notes: Same Active 0.9% as: BD 2019 [facility] Posiflush Sterile pantoprazole Notes: For IV Inactive push 2019 [facility] reconstitute with 10 ml 0.9% sodium chloride and push over 2 minutes. (Same as: Protonix) Morphine Notes: (Same Active as:MORPhine 2019 [facility] Sulfate) Labetalol Notes: (Same Active as: Normodyne, 2019 [facility] Trandate) Push over 2 minutes Give bolus over 2-3 minutes. NS (Bolus) IV 1,000 mL, Inactive 1,000 ml/hr, 2019 [facility] Infuse Over: 1 hr, Route: IV, 1,000, Drug form: INJ, ONCE, Priority: STAT, Dosing Weight 68.409 kg, Start date: 08/28/19 2:07:00 CDT, Stop date: 08/28/19 2:07:00 CDT, 0 Sodium Chloride 1,000 mL, Inactive 0.9% (Bolus) IV 1,000 ml/hr, 2019 [facility] Infuse Over: 1 hr, Route: IV, 1,000, Drug form: INJ, ONCE, Priority: STAT, Dosing Weight 68.409 kg, Start date: 08/28/19 2:01:00 CDT, Stop date: 08/28/19 2:01:00 CDT, 0 ursodiol 500 mg 500 mg = 1 No Longer oral tablet tab, PO, ONCE, [address] 0 Refill(s) Esomeprazole 40 mg, PO, No Longer Daily, 0 2019 [facility] Refill(s) ferrous sulfate 325 mg = 1 No Longer 325 MG Oral tab, PO, BID, 2019 [facility] est Tablet 0 Refill(s) Allergies, Adverse Reactions, Alerts Substance Category Reaction Severity Reaction Status Date Comments S ource type Reported vancomycin Assertion Drug Active MH allergy [facility] piperacillin Assertion Drug Active M H -tazobactam allergy [place] meropenem Assertion Drug Active MH allergy [facility] Immunizations No Data Provided for This Section Results Order Name Results Value Reference Date Interpretation Comments Lenka rce Range CHEM PANEL Amylase Lvl 17 25 - 115 08/30 [facility] CHEM PANEL Glucose Lvl 104 70 - 99 08/30 [facility] CHEM PANEL BUN 1 7 - 08/30 [facility] CHEM PANEL Creatinine 0.50 0.50 - 08/30 Lvl 1.40 [facility] CHEM PANEL Sodium Lvl 145 135 - 145 08/30 [facility] CHEM PANEL Potassium 3.1 3.5 - 5.1 08/30 Lvl [facility] CHEM PANEL Chloride Lvl 109 95 - 109 08/30 [facility] CHEM PANEL CO2 25 24 - 32 08/30 [facility] CHEM PANEL AGAP 14.1 10.0 - 08/30 MH 20.0 [facility] CHEM PANEL Calcium Lvl 7.4 8.5 - 10.5 08/30 [facility] CHEM PANEL eGFR 145 08/30 Result Comment: The [facility] eGFR is calculated using the CKD-EPI formula. [...] PANEL Lipase Lvl 104 73 - 393 / /2019 [facility] HEMATOLOGY WBC 5.9 3.7 - 10.4 08/30 /2019 [facility] HEMATOLOGY RBC 3.00 4.70 - 08/30 MH 6.10 /2019 [facility] HEMATOLOGY Hgb 9.1 14.0 - 08/30 MH 18.0 /2019 [facility] HEMATOLOGY Hct 26.4 42.0 - 08/30 MH 54.0 /2019 [facility] HEMATOLOGY MCV 88.1 80.0 - 08/30 MH 94.0 /2019 [facility] HEMATOLOGY MCH 30.2 27.0 - 08/30 MH 31.0 /2019 [facility] HEMATOLOGY MCHC 34.3 32.0 - 08/30 MH 36.0 /2019 [facility] HEMATOLOGY RDW 14.6 11.5 - 08/30 MH 14.5 /2019 [facility] HEMATOLOGY Platelet 341 133 - 450 08/30 /2019 [facility] HEMATOLOGY MPV 8.8 7.4 - 10.4 08/30 MH /2019 [facility] HEMATOLOGY Segs 71.9 45.0 - 08/30 MH 75.0 /2019 [facility] HEMATOLOGY Lymphocytes 13.3 20.0 - 08/30 MH 40.0 /2019 [facility] HEMATOLOGY Monocytes 11.1 2.0 - 12.0 08/30 /2019 [facility] HEMATOLOGY Eosinophils 3.1 0.0 - 4.0 08/30 /2019 [facility] HEMATOLOGY Basophils 0.6 0.0 - 1.0 08/30 /2019 [facility] HEMATOLOGY Neutrophils 4.3 1.5 - 8.1 08/30 MH # /2019 [facility] HEMATOLOGY Lymphocytes 0.8 1.0 - 5.5 08/30 MH # /2019 [facility] HEMATOLOGY Monocytes # 0.7 0.0 - 0.8 08/30 /2019 [facility] HEMATOLOGY Eosinophils 0.2 0.0 - 0.5 / MH # /2019 [facility] HEMATOLOGY Basophils # 0.0 0.0 - 0.2 / /2019 [facility] CHEM PANEL Glucose Lvl 57 70 - 99 08/29 /2019 [facility] CHEM PANEL BUN 2 7 - 22 08/29 /2019 [facility] CHEM PANEL Creatinine 0.40 0.50 - 07 MH Lvl 1.40 /2019 [facility] CHEM PANEL Sodium Lvl 143 135 - 145 07 /2019 [facility] CHEM PANEL Potassium 3.5 3.5 - 5.1 07/ MH Lvl /2019 [facility] CHEM PANEL Chloride Lvl 109 95 - 109 07/ MH /2020 [facility] CHEM PANEL CO2 22 24 - 32 08/29 [facility] CHEM PANEL Calcium Lvl 7.7 8.5 - 10.5 08/29 [facility] CHEM PANEL AGAP 15.5 10.0 - 08/29 MH 20.0 [facility] CHEM PANEL eGFR 159 08/29 Result Comment: The [facility] eGFR is calculated using the CKD-EPI formula. [...] CHEM PANEL Procalcitoni <0.05 0.00 - 08/29 MH n Lvl 0.10 [facility] HEMATOLOGY WBC 6.2 3.7 - 10.4 08/29 [facility] HEMATOLOGY RBC 2.92 4.70 - 08/29 MH 6.10 [facility] HEMATOLOGY Hgb 8.5 14.0 - 08/29 MH 18.0 [facility] HEMATOLOGY Hct 26.2 42.0 - 08/29 MH 54.0 [facility] HEMATOLOGY MCV 89.6 80.0 - 08/29 MH 94.0 [facility] HEMATOLOGY MCH 29.0 27.0 - 08/29 MH 31.0 [facility] HEMATOLOGY MCHC 32.4 32.0 - 08/29 MH 36.0 [facility] HEMATOLOGY RDW 15.0 11.5 - 08/29 MH 14.5 [facility] HEMATOLOGY Platelet 323 133 - 450 08/29 [facility] MPV 8.6 7.4 - 10.4 08/29 [facility] HEMATOLOGY Segs 77.2 45.0 - 08/29 MH 75.0 /2019 [facility] HEMATOLOGY Lymphocytes 11.4 20.0 - 07 MH 40.0 /2019 [facility] HEMATOLOGY Monocytes 9.1 2.0 - 12.0 07 MH [facility] HEMATOLOGY Eosinophils 1.8 0.0 - 4.0 07 MH [facility] HEMATOLOGY Basophils 0.5 0.0 - 1.0 07/ [facility] HEMATOLOGY Neutrophils 4.7 1.5 - 8.1 08/29 MH # /2019 [facility] HEMATOLOGY Lymphocytes 0.7 1.0 - 5.5 08/29 MH # [facility] HEMATOLOGY Monocytes # 0.6 0.0 - 0.8 08/29 [facility] HEMATOLOGY Eosinophils 0.1 0.0 - 0.5 08/29 MH # [facility] IMMUNOLOGY Coronavirus Not Detected Not 08/28 MH (COVID-19) (08/29/19 6:29 AM) Detected /2019 [facility] CHEM PANEL Glucose Lvl 71 70 - 99 08/28 [facility] CHEM PANEL BUN 3 7 - 22 08/28 [facility] CHEM PANEL Creatinine 0.50 0.50 - 07 MH Lvl 1.40 /2019 [facility] CHEM PANEL Sodium Lvl 143 135 - 145 08/28 [facility] CHEM PANEL Potassium 3.3 3.5 - 5.1 08/28 MH Lvl /2019 [facility] CHEM PANEL Chloride Lvl 110 95 - 109 08/28 [facility] CHEM PANEL CO2 26 24 - 32 08/28 [facility] CHEM PANEL Calcium Lvl 8.2 8.5 - 10.5 08/28 [facility] CHEM PANEL AGAP 10.3 10.0 - 08/28 MH 20.0 [facility] CHEM PANEL eGFR 145 08/28 Result Comment: The [facility] eGFR is calculated using the CKD-EPI formula. [...] BMI. HEMATOLOGY WBC 5.2 3.7 - 10.4 08/28 MH /2019 [facility] HEMATOLOGY RBC 2.91 4.70 - 08/28 MH 6.10 [facility] HEMATOLOGY Hgb 8.8 14.0 - 08/28 MH 18.0 /2019 [facility] HEMATOLOGY Hct 25.8 42.0 - 08/28 MH 54.0 /2019 [facility] HEMATOLOGY MCV 88.8 80.0 - 08/28 MH 94.0 [facility] MCH 30.3 27.0 - 08/28 MH 31.0 [facility] MCHC 34.1 32.0 - 08/28 MH 36.0 [facility] RDW 14.4 11.5 - 08/28 MH 14.5 [facility] Platelet 316 133 - 450 08/28 /2019 [facility] MPV 8.6 7.4 - 10.4 08/28 MH /2019 [facility] RBC Morph Normal Normal 08/28 MH (08/29/19 4:30 AM) /2019 [facility] est HEMATOLOGY Plt Morph Normal Normal 08/28 MH (08/29/19 4:30 AM) /2019 [facility] est HEMATOLOGY Segs 70.7 45.0 - 08/28 MH 75.0 [facility] Lymphocytes 17.3 20.0 - 08/28 MH 40.0 [facility] Monocytes 10.4 2.0 - 12.0 08/28 /2019 [facility] HEMATOLOGY Eosinophils 1.0 0.0 - 4.0 08/28 MH /2019 [facility] HEMATOLOGY Basophils 0.6 0.0 - 1.0 08/28 MH /2019 [facility] HEMATOLOGY Neutrophils 3.6 1.5 - 8.1 08/28 MH # /2019 [facility] HEMATOLOGY Lymphocytes 0.9 1.0 - 5.5 08/28 MH # [facility] Monocytes # 0.5 0.0 - 0.8 08/28 /2019 [facility] Eosinophils 0.1 0.0 - 0.5 08/28 MH # /2019 [facility] BLOOD BANK RBC product Product available 4 08/27 Resul t RESULTS (08/28/19 5:41 AM) /2019 Comment: [facility] 08/28/2019 06:02 [id number]
Blood available, notified Anne WHITNEY at 08/28/2019 06:02 by NS. BLOOD BANK Antibody Negative 08/27 RESULTS Scrn (08/28/19 3:37 AM) [facility] BLOOD BANK ABO/Rh A POS 08/27 RESULTS /2019 [facility] CHEM PANEL Total 5.1 6.4 - 8.4 08/27 Protein /2019 [facility] CHEM PANEL Albumin Lvl 1.2 3.5 - 5.0 08/27 [facility] CHEM PANEL ALT 7 0 - 65 08/27 [facility] CHEM PANEL AST 14 0 - 37 08/27 [facility] CHEM PANEL Alk Phos 88 39 - 136 08/27 [facility] CHEM PANEL Bili Total 0.3 0.2 - 1.3 08/27 [facility] CHEM PANEL B/C Ratio 12 6 - 25 08/27 [facility] CHEM PANEL Globulin 3.9 2.7 - 4.2 08/27 [facility] CHEM PANEL A/G Ratio 0.3 0.7 - 1.6 08/27 [facility] HEMATOLOGY PT 17.3 12.0 - 08/27 MH 14.7 [facility] HEMATOLOGY INR 1.40 0.85 - 08/27 1.17 [facility] HEMATOLOGY PTT 45.5 22.9 - 08/27 35.8 [facility] HEMATOLOGY RBC Morph Normal Normal 08/27 (08/28/19 3:37 AM) [facility] HEMATOLOGY Plt Morph Normal Normal 08/27 (08/28/19 3:37 AM) [facility] HEMATOLOGY Basophils # 0.0 0.0 - 0.2 08/27 [facility] Pathology Reports No Data Provided for This Section Diagnostic Reports Report Value Date Source Chest 2 views DX EXAM: XR CHEST 2 VIEWS 09/10/2019 [facility] DATE: 09/10/2019 9:36 CDT Center INDICATION: - eval pleural effusions COMPARISON: Chest radiograph 09/05/2019 TECHNIQUE: PA and lateral chest radiographs. FINDINGS: Lines, tubes and hardware: T he right arm PICC tip is heading towards the neck and projects outside the [id number]. Lungs and pleura: Pulmonary vascularity is normal. [...] towards the neck and projecting outside the [id number]. Recommend repositioning. 2. There is interval improv ement of small left pleural effusion status post thoracentesis. 3. Left retrocardiac subsegmental atelectasis. Finding #1 was discussed wit radha Sanchez via telephone on 09/10/2019 at 1531 hours. Thoracentesis wo PROCEDURE: Ultrasound-guided thoracentesis 04/2019 [facility] catheter Procedural Personnel Center Attending physician(s): Jack Fellow [...] written. Vascular/Interventional PROCEDURE: Ultrasound-guided thoracentes is 09/08/2019 [facility] Radiology Consult Procedural Personnel Center Attending physician(s): [...] ABDOMEN WITHOUT AND WITH CONTRA ST 09/05/2019 [facility] IV contrast CT DATE: 09/05/2019 7:54 CDT [...] Enteric contrast: None. DLP (mGy-cm): 1438.90. FINDINGS: University Relations Vice President: Noncontributory. Lines, tubes and hardware: None. Lower [...] Placement EXAM: XR CHEST 1 VIEW 09/05/2019 [facility] DX DATE: 09/05/2019 13:44 CDT Center [...] [facility] DATE: 09/04/2019 1:45 PM CDT [facility] er INDICATION: Dyspnea - Right Thoracentesis COMPARISON: [...] ERCP Diagnostic DX EXAM: FLUOROSCOPY ERCP 09/04/2019 [facility] DATE: 09/04/2019 at 1705 hours [...] CT EXAM: CT CHEST WITHOUT CONTRAST 09/02/2019 [facility] DATE: 09/02/2019 12:06 CDT Center INDICATION: [...] IV contrast: None. DLP (mGy-cm): 162.7. FINDINGS: University Relations Vice President: Noncontributory. Lines, tubes and hardware: None. Lower [...] DX EXAM: XR ABDOMEN 1 VIEW 09/02/2019 [facility] DATE: 09/02/2019 8:59 CDT Center INDICATION: - History of Pancreatitis and GI bl eed ADDITIONAL INFORMATION: None. COMPARISON: CT abdomen pelvis 08/29/2019 TECHNIQUE: Single frontal image of the abdomen. FINDINGS: Lines and tubes: Right upper quadrant biliary st ent. Endo Clip projects over the left medial upper qu adrant. Overlying EKG leads. Lower thorax: Small left ple ural effusion with associated atelectasis/consolidation. Bowel: [id number] gaseous distention of th e stomach. Gaseous [...] DX EXAM: XR CHEST 1 VIEW 09/02/2019 [facility] DATE: 09/02/2019 8:59 AM CDT [facility] er INDICATION: - History of cough COMPARISON: [...] (mGy): D LP = 169 (mGy-cm) 08/29/2019 [facility] PROCEDURE INFORMATION: Exam: CT Abdomen With [...] Carlota Mcgrath MD On 08/29/2019 16:04: 54; [id number] Consultation Notes No Data Provided for This Section Discharge Summaries No Data Provided for This Section History and Physicals No Data Provided for This Section Vital Signs Vital Sign Value Date Comments Source Heart Rate 86 09/01/2019 [facility] Respitory Rate 18 09/01/2019 [facility] Systolic (mm Hg) 106 09/01/2019 [facility] t Diastolic (mm Hg) 69 09/01/[address] [facility] [address] Respitory Rate 18 09/01/2019 [facility] Temperature Oral (F) 99.1 F 09/01/2019 [place] Heart Rate 101 09/01/2019 [facility] Respitory Rate 18 09/01/2019 [facility] Systolic (mm Hg) 98 09/01/2019 [facility] t Diastolic (mm Hg) 68 09/01/[address] [facility] [address] Temperature Oral (F) 98.3 F 08/31/2019 [place] Heart Rate 76 08/31/2019 [facility] Systolic (mm Hg) 107 08/31/2019 [facility] t Diastolic (mm Hg) 72 08/31/[address] [facility] [address] Temperature Oral (F) 98.4 F 08/31/2019 [place] Height 177.8 cm 08/28/2019 [facility] Weight 68.409 08/28/2019 [facility] BMI Calculated 21.64 08/28/2019 [facility] Encounters Location Location Encounter Encounter Reason Attending ADM RI Stat Source Details Type Number For Provider Date Date Visit [facility] Inpatient [id number] [facility] 08/27 08/27 Nigel Siu /2019 [facility] Procedures No Data Provided for This Section Assessment and Plan Assessment and Plan Date Source Extracted from:Title: Progress Note 09/01/2019 [facility] [place] Author: Cindy Elmore MD Date: 08/31/19 1.Acute blood loss anemia(D62) 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 Colonoscopy was unremarkable CT reviewed multiple biliary and pancreatic issues Patient to be transferred to the [facility] to be evaluated by the advanced GI [...] bleed. Patient [facility] [place] [facility], getting his 4th unit of PRBC, no hematemesis reported by mother or EMS Vitally stable Plan: Patient is on PPI gtt Zofran 4 mg q6 h to avoid nausea Check H&H post transfusion Plan for upper endoscopy and colonoscopy in AM Biliary stent needs to be evaluated by t he specialists [facility] since all liver labs look unremarkable, would [...] History Date Source Social History TypeResponse 08/28/2019 [facility] Alcohol Never Substance Abuse Use: None. [...]
--- OUTSIDE RECORDS SUMMARY | 2019-12-01 12:49 | XMS REPORT | Continuity of Care Document ---
:1990 Author Organization [facility] t Address [address] [place] [address] Care Team Providers Name Role Phone Mnotrell Coughlin Primary Care Physician Pennie WADE Attending Clinician Khadijah Maciel MD Attending Clinician Josselyn WADE, Sean Attending Clinician Bryan WADE, Aristeo Attending Clinician Dory Moore MD Attending Clinician Arthur Morocho MD Attending Clinician Mervat Jalloh MD Attending Clinician Tony Clark MD Attending Clinician Kevon Grier MD Attending Clinician Jeremi THOMAS Attending Clinician Kai Santiago MD Attending Clinician PENNIE Attending Clinician Unavailable Kp Zarate Attending Clinician Celia Cuellar MD Attending Clinician MARÍA Attending Clinician Unavailable María WADE Attending Clinician Wing De La Rosa MD Attending Clinician [phone] Anaid Pinon MD Attending Clinician Fortunato WADE Attending Clinician Jarocho WADE, Get Attending Clinician Ashlyn Childs Attending Clinician CARMELA Attending Clinician Unavailable RAFAELA GILL Attending Clinician Unavailable SATHISH Attending Clinician Unavailable MITCHELL CELAYA Attending Clinician Unavailable KHADIJAH MACIEL Admitting Clinician Unavailable Kp Zarate Admitting Clinician FORTUNATO Admitting Clinician Unavailable CARMELA Admitting Clinician Unavailable RAFAELA GILL Admitting Clinician Unavailable SATHISH Admitting Clinician Unavailable MITCHELL CELAYA Admitting Clinician Unavailable Payers Payer Name Policy Type Policy Effective Date Expiration Date Sour ce Number MEDICAID - [id number] [address] [facility] MEDICAID MGD 00:00:00 - [facility] [place]ED[place]ID Adrian [id number] -[facility] edicaid Non-Contracted [facility] REVIEWCDC [id number] 2019 [facility] s [id number] 00:00:00 - [facility] [place] [address] Problems Condition Condition Condition Status Onset Resolution Last Treating Co mments Source Name Details Category Date Date Treatment Clinician Date Acute Acute Disease Active [facility] postoperat postoperat 12 Mariah kes - yuridia pain yuridia pain 00:00: Medica l 00 Adrian Acute Acute Disease Active [facility] respirator respirator 10-17 Mariah kes - y y 00:00: Medical insufficie insufficie 00 Ce nter ncy, ncy, postoperat postoperat yuridia yuridia Hemorrhagi Hemorrhagi Disease Active 2019- [facility] shock c shock 10-17 [facility] Medical 00 Adrian Metabolic Metabolic Disease Active 2019- [facility] acidosis acidosis 10-17 [facility] - 00[facility]: Medical 00 Adrian Oliguria Oliguria Disease Active [facility] Medical 00 Adrian Acute Acute Disease Active 2019- [facility] blood loss blood loss 12 Mariah kes - anemia anemia 00:00: Medical 00 Center Hyperglyce Hyperglyce Disease Active 2020- [facility] mary ann mary ann 10-17 [facility] - 00:[facility]: Medical 00 Adrian S/P S/P Disease Active 2019- [facility] splenectom splenectom 10-17 Mariah kes - y during y during 00:00: Medica l current current 00 [facility] ation ation Gastric Gastric Disease Active 2019- [facility] varices varices 10-12 [facility] - 00:00: Medical 00 Center CLINIC Diagnosis Active 2019-10-14 Mem oria VISIT 09-29 12:21:00 l CLINIC 00:00: Nigel VISIT 00 Active 09/30/2019 [facility] GASTRIC Diagnosis Active 2019-10-02 Ny moria VARICES 08-31 15:46:00 l SEVERE GASTRIC 00:00: [place] PANCREATIC VARICES 00 NECR SEVERE PANCREATIC NECR Active 09/01/2019 [facility] UPPER GI Diagnosis Active 2019-08-28 M emoria BLEED 08-26 00:59:00 l UPPER GI 00:00: Deshawn n BLEED 00 Active 08/27/2019 [facility] ACUTE Diagnosis Active 2019-2019-09-09 Mem oria UPPER GI 08-26 21:51:00 l BLEED, ACUTE 00:00: [place] ACUTE UPPER GI 00 BLOOD LOSS BLEED, A ACUTE BLOOD LOSS A Active 08/27/2019 [facility] Obstructiv Obstructiv Disease Active 2019- [facility] e jaundice e jaundice 1-10 Mariah kes - 00:00: Medical 00 Adrian GI bleed GI bleed Disease Active 2018- [facility]: Medical 00 Adrian Leukocytos Leukocytos Disease Active 2019- [facility] is is 08-27 [facility] - 00:00: Medical 00 Adrian Hypomagnes Hypomagnes Disease Active 2019- [facility] emia emia 07-28 [facility] - 00:00: Medical 00 Adrian 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 07-27 Luke s - pancreatit pancreatit 00:00: Me dical is is 00 Center Peripancre Peripancre Disease Active 2019- [facility] atic fluid atic fluid 6-06 Mariah kes - collection collection 00:00: Me dical 00 Center Cholangiti Cholangiti Disease Active 2019- [facility] s s 4-25 [facility] - 00:00: Medical 00 Adrian Illness, Problem 2019-09-01 Mem oria unspecifie 09:02:02 l d Illness, Deshawn n unspecifie d 09/01/2019 [facility] ILLNESS, Diagnosis Active 2019-08-28 M emoria UNSPECIFIE 00:59:00 l D ILLNESS, Deshawn n UNSPECIFIE D Active [facility] GASTROINTE Diagnosis Active 2019-09-09 Memoria STINAL 21:51:00 l HEMORRHAGE Deshawn n , GASTROINTE UNSPECIFIE STINAL D HEMORRHAGE , UNSPECIFIE D Active [facility] ACUTE Diagnosis Active 2019-09-09 Mem oria POSTHEMORR 21:51:00 l HAGIC ACUTE Nigel ANEMIA POSTHEMORR HAGIC ANEMIA Active [facility] HYPOTENSIO Diagnosis Active 2019-09-09 Memoria N, 21:51:00 l UNSPECIFIE Deshawn n D HYPOTENSIO N, UNSPECIFIE D Active [facility] Allergies, Adverse Reactions, Alerts Allergy Allergy Status Severity Reaction(s) Onset Inactive Treating Comm ents Source Name Type Date Date Clinician Morphine Drug Active Nausea And [facility] Allergy Vomiting 1-10 [facility] - 00:[facility]: Medical 00 Adrian tazobact DA [facility] am 09-11 Clear 00:00: [facility] piperaci DA Active [facility] llin 09-11 Clear 00:00: [facility] vancomyc DA Active [facility] in 09-11 Clear 00:00: [facility] MEREPENE DA Active [facility] M 09-11 Clear 00:00: [facility] Vancomyc Propensi Active Rash Rash with [facility] [...] - Sodium 00:00: Medical Chloride 00 Center vancomyc vancomyc Active Memori a in in l [place] piperaci piperaci Active Memori a llin-sam llin-sam l obactam obactam [place] meropene meropene Active Memori a m m l Nigel Social History Social Habit Start Date Stop Date Quantity Comments Source Sex Assigned [facility] Tobacco use and 2019-10-20 2019-10-20 Never used [facility] - exposure 00:00:00 00:00:00 [facility] Social History 2019-08-28 2019-08-28 [facility] 06:50:55 06:50:55 Smoking Status Start Date Stop Date Source Never smoker [facility] Medications Ordered Filled Start Stop Current Ordering Indication Dosage Frequency Signature Comments Components Source Medication Medication Date Date Medication? Clinician (SIG) Name Name ursodioL Yes 500mg QD Take [address] (ACTIGALL) 9-18 mg by [facility] - 500 MG 13:28: mouth Medical tablet 01 daily. Adrian traMADoL 2020- No 50mg Take [address] (ULTRAM) 50 -18 by mouth Marilyn es - mg tablet 08:30: 00:00 every 6 Medi dk 37 :00 (six) Center hours as needed for Pain. levoFLOXaci 2020- No 750mg QD Take [address] [address] n 9-18 09-18 mg by [facility] - (LEVAQUIN) 08:30: 00:00 mouth Medic al 750 MG 37 :00 daily. Center tablet midodrine 2019-0 2020- No 5mg [id number] Take [address] [facility] (PROAMATINE 9-18 -18 [id number] by mouth 3 [facility] - ) 5 MG 08:30: 00:00 3D (three) Medical tablet 37 :00 times Center daily. midodrine 2019-0 Yes 10mg Q.[id number] Take [address] [facility] (PROAMATINE 9-18 [id number] tablets [facility] - ) 5 MG 00:00: 3D (10 mg Medical tablet 00 total) by Center mouth 3 (three) times daily. traMADoL 2019-0 Yes 100mg Take [address] [address] (ULTRAM) 50 9-18 tablets [facility] - mg tablet 00:00: (100 mg Medic al 00 total) by Center mouth every 6 (six) hours as needed for Pain. Max Daily Amount: 400 mg senna 2020- Yes 17.2mg QD Take [address] (SENOKOT) 10-23 tablets [facility] - 8.6 mg 00:00: 23:59 (17.2 mg Medica l tablet 00 :00 total) by Center mouth nightly. gabapentin 2020- Yes 200mg Q.[id number] Take [address] (NEURONTIN) 10-23 [id number] capsules [facility] - 100 MG 00:00: 23:59 3D (200 mg Medical capsule 00 :00 total) by Center mouth 3 (three) times daily. metroNIDAZO 2019- No 500mg Q.[id number] Take [address] LE (FLAGYL) 10-20 [id number] mg by [facility] - 500 MG 23:09: 00:00 3D mouth 3 Medical tablet 25 :00 (three) Center times daily. esomeprazol 2019- No 40mg QD Take [address] [facility] e (NEXIUM) 09-25 by mouth Luke s - 40 MG 00:00: 00:00 daily. Medical capsule 00 :00 Center Saline Yes Notes: Memoria Flush 0.9% 7-26 (Same as: l 21:00: BD [place] Posiflush) Saline Yes Notes: Memoria Flush 0.9% 7-26 (Same as: l 21:00: BD Nigel Posiflush) Lidocaine Yes Notes: Memori a Hydrochlori 7-26 Preservati l de 10 MG/ML 16:00: ve free. He rmann Injectable 00 (Same as: Solution Xylocaine MPF) Lidocaine Yes Notes: Memori a Hydrochlori 7-26 Preservati l de 10 MG/ML 16:00: ve free. He rmann Injectable 00 (Same as: Solution Xylocaine MPF) Saline Yes Notes: Memoria Flush 0.9% 7-26 (Same as: l 15:08: BD [place] 00 Posiflush) pantoprazol Yes Notes: For Memoria e additive 7-26 IV push l 80 mg + 15:08: reconstitu Herm natalie Sodium 00 te with 10 Chloride ml 0.9% 0.9% IV 100 sodium mL chloride and push over 2 minutes. (Same as: Protonix) Saline 2020-0 Yes Notes: Memoria Flush 0.9% 7-26 (Same as: l 15:08: BD [place] 00 Posiflush) pantoprazol 2020-0 Yes Notes: For Memoria e additive 7-26 IV push l 80 mg + 15:08: reconstitu Herm natalie Sodium 00 te with 10 Chloride ml 0.9% 0.9% IV 100 sodium mL chloride and push over 2 minutes. (Same as: Protonix) Potassium 2020-0 No Notes: Memori a Chloride 7-26 Infuse at l 14:00: a rate of [place] 00 10 mEq/hr. (Same as: KCL) Potassium 2020-0 No Notes: Memori a Chloride 7-26 Infuse at l 14:00: a rate of Nigel 00 10 mEq/hr. (Same as: KCL) ondansetron 2020-0 No 4 mg = 2 [...] mL 7-25 Rate: 100 l 13:29: ml/hr, [place] 00 Infuse over: 10 hr, Route: IV, Dosing Weight 68.409 kg, Total Volume: 1,000, Start date: 08/30/19 8:29:00 CDT, Duration: 30 day, Stop date: 09/29/19 8:28:00 CDT, 1.84, m2, 0 Sodium 2020-0 Yes 250 mL, Memoria Chloride 7-24 Route: l 0.9% IV 21:33: IVPB, Start date: 08/29/19 16:33:00 CDT, Duration: 30 day, Stop date: 09/28/19 16:32:00 CDT, PRN Line Flush, 0 Sodium 2020-0 Yes 250 mL, Memoria Chloride 7-24 Route: l 0.9% IV 21:33: IVPB, Start date: 08/29/19 16:33:00 CDT, Duration: 30 day, Stop date: 09/28/19 16:32:00 CDT, PRN Line Flush, 0 Dextrose 2020-0 Yes 12.5 gm, Memor ia 50% Syringe 7-24 25 mL, l (D50W) 21:11: Route: IVP, Drug Form: INJ, Dosing Weight 68.409, kg, PRN, PRN Blood Glucose Results, Start date: 08/29/19 16:11:00 CDT, Duration: 30 day, Stop date: 09/28/19 16:10:00 CDT, 0 Glucagon 2020-0 Yes 1 mg, Memoria 7-24 Route: IM, l 21:11: Drug form: PDR/INJ, PRN, Dosing Weight 68.409, kg, PRN Blood Glucose Results, Start date: 08/29/19 16:11:00 CDT, Duration: 30 day, Stop date: 09/28/19 16:10:00 CDT, 0 Dextrose 2020-0 Yes 12.5 gm, Memor ia 50% Syringe 7-24 25 mL, l (D50W) 21:11: Route: IVP, Drug Form: INJ, Dosing Weight 68.409, kg, PRN, PRN Blood Glucose Results, Start date: 08/29/19 16:11:00 CDT, Duration: 30 day, Stop date: 09/28/19 16:10:00 CDT, 0 Glucagon 2020-0 Yes 1 mg, Memoria 7-24 Route: IM, l 21:11: Drug form: PDR/INJ, PRN, Dosing Weight 68.409, [...] Nigel 00 10 mEq/hr. (Same as: KCL) Potassium 2020-0 No Notes: Memori a Chloride 7-24 Infuse at l 14:00: a rate of [place] 00 10 mEq/hr. (Same as: KCL) Lactulose 2020-0 No Notes: Memori a 667 MG/ML 7-24 (Same l Oral 02:57: as:Chronul Nigel Solution 00 ac) Lactulose 2020-0 No Notes: Memori a 667 MG/ML 7-24 (Same l Oral 02:57: as:Chronul Nigel Solution 00 ac) Lactulose 2020-0 No Notes: Memori a 667 MG/ML 7-24 (Same l Oral 02:54: as:Chronul [place] Solution 00 ac) Lactulose 2020-0 No Notes: Memori a 667 MG/ML 7-24 (Same l Oral 02:54: as:Chronul [place] Solution 00 ac) ondansetron 2020-0 Yes Notes: Guy zoila 7-23 (Same as: l 23:00: Zofran) [place] 00 MEDICATION WASTE Product Size: 4 mg Product Wasted: ___ mg ondansetron 2020-0 Yes Notes: Guy zoila 7-23 (Same as: l 23:00: Zofran) [place] 00 MEDICATION WASTE Product Size: 4 mg Product Wasted: ___ mg Golytely 2020-0 No Notes: Memoria 7-23 (polyethyl l 19:31: avi glycol Nigel 00 electrolyt e solution 4 Liter bottle) (Same as: Golytely, Colyte) Golytely 2020-0 No Notes: Memoria 7-23 (polyethyl l 19:31: avi glycol [place] 00 electrolyt e solution 4 Liter bottle) [...] tablet Ondansetron 2020-0 Yes Notes: Guy zoila 7-23 (Same as: l 07:15: Zofran) Nigel [...] a 7-23 (Same As: l 07:15: Desyrel) [place] 00 Maalox 2020-0 Yes Notes: Memoria Advanced 7-23 (aluminum l Regular 07:15: hydroxide- Herm natalie Strength 00 magnesium SUSP hyd-simeth icone 200-200-20 mg/5ml 30 ml ud DAKOTAH) Albuterol 2020-0 Yes Notes: Memori a 0.833 MG/ML - (Same as: l / 07:15: Duoneb) [place] Ipratropium 00 [place] 0.167 MG/ML Inhalant Solution [DuoNeb] Docusate 2020-0 Yes Notes: Memoria Sodium 100 7-23 (Same as: l MG Oral 07:15: Colace) Nigel Capsule 00 (Do Not [Colace] Crush) Robitussin 2020-0 Yes Notes: Memor ia 100 mg/5 mL - (Same as: l oral liquid 07:15: Robitussin [place] 00 ) Zofran 2020-0 Yes Notes: Memoria 7-23 (Same as: l 07:15: Zofran) Nigel 00 MEDICATION WASTE Product Size: 4 mg Product Wasted: ___ mg Hydralazine 2020-0 Yes Notes: Guy zoila 7-23 (Same as: l 07:15: Apresoline Nigel 00 ) Push over 5 minutes Sodium 2020-0 No 1,000 mL, Memori a Chloride - Rate: 100 l 0.9% IV 07:15: ml/hr, Thornton 1,000 mL 00 Infuse over: 10 hr, Route: IV, Dosing Weight 68.409 kg, Total Volume: 1,000, Start date: 08/28/19 2:15:00 CDT, Duration: 30 day, Stop date: 09/27/19 2:14:00 CDT, 1.84, m2, 0 Saline 2020-0 Yes Notes: Memoria Flush 0.9% 7-23 Same as: l 07:15: BD [place] 00 Posiflush Sterile Ondansetron 2020-0 Yes Notes: Guy zoila 7-23 (Same as: l 07:15: Zofran) [place] 00 MEDICATION WASTE Product Size: 4 mg [...] 200-200-20 mg/5ml 30 ml ud DAKOTAH) Albuterol 2019-0 Yes Notes: Memori a 0.833 MG/ML 7-23 (Same as: l / 07:15: Duoneb) Nigel Ipratropium 00 [place] 0.167 MG/ML Inhalant Solution [DuoNeb] Docusate 2020-0 Yes Notes: Memoria Sodium 100 7-23 (Same as: l MG Oral 07:15: Colace) Nigel Capsule 00 (Do Not [Colace] Crush) Robitussin 2020-0 Yes Notes: Memor ia 100 mg/5 mL 7-23 (Same as: l oral liquid 07:15: Robitussin Nigel 00 ) Zofran 2020-0 Yes Notes: Memoria 7-23 (Same as: l 07:15: Zofran) Nigel 00 MEDICATION WASTE Product Size: 4 mg Product Wasted: ___ mg Hydralazine 2020-0 Yes Notes: Guy zoila 7-23 (Same as: l 07:15: Apresoline Nigel 00 ) Push over 5 minutes Sodium 2020-0 No 1,000 mL, Memori a Chloride 7- Rate: 100 l 0.9% IV 07:15: ml/hr, Thornton 1,000 mL 00 Infuse over: 10 hr, Route: IV, Dosing Weight 68.409 kg, Total Volume: 1,000, Start date: 08/28/19 2:15:00 CDT, Duration: 30 day, Stop date: 09/27/19 2:14:00 CDT, 1.84, m2, 0 Saline 2020-0 Yes Notes: Memoria Flush 0.9% 7- Same as: l 07:15: BD Nigel 00 Posiflush Sterile pantoprazol 2020-0 No Notes: For Memoria e 7- IV push l 07:07: reconstitu [place] 00 te with 10 ml 0.9% sodium chloride and push over 2 minutes. (Same as: Protonix) Morphine 2020-0 Yes Notes: Memoria 7- (Same l 07:07: as:MORPhin [place] 00 e Sulfate) Labetalol 2020-0 Yes Notes: Memori a 7-23 (Same as: l 07:07: Normodyne, Nigel 00 Trandate) Push over 2 minutes Give bolus over 2-3 minutes. NS (Bolus) 2020-0 No 1,000 mL, Me moria IV -23 1,000 l 07:07: ml/hr, Nigel 00 Infuse [...] Notes: Memoria 7-23 (Same l 07:07: as:MORPhin Nigel 00 e Sulfate) Labetalol 2020-0 Yes Notes: Memori a 7-23 (Same as: l 07:07: Normodyne, [place] 00 Trandate) Push over 2 minutes Give bolus over 2-3 minutes. NS (Bolus) 2020-0 No 1,000 mL, Me moria IV 7-23 1,000 l 07:07: ml/hr, Thornton 00 Infuse Over: 1 hr, Route: IV, 1,000, Drug form: INJ, ONCE, Priority: STAT, Dosing Weight 68.409 kg, Start date: 08/28/19 2:07:00 CDT, Stop date: 08/28/19 2:07:00 CDT, 0 Sodium 2020-0 No 1,000 mL, Memori a Chloride 7-23 1,000 l 0.9% 07:01: ml/hr, Nigel (Bolus) IV 00 Infuse Over: 1 hr, Route: IV, 1,000, Drug form: INJ, ONCE, Priority: STAT, Dosing Weight 68.409 kg, Start date: 08/28/19 2:01:00 CDT, Stop date: 08/28/19 2:01:00 CDT, 0 Sodium 2020-0 No 1,000 mL, Memori a Chloride 7-23 1,000 l 0.9% 07:01: ml/hr, Thornton (Bolus) IV 00 Infuse Over: 1 hr, [...] tab, PO, l tablet 17:00: ONCE, 0 [place] 00 Refill(s) Esomeprazol 2020-0 No 40 mg, PO, Memoria e 7-22 Daily, 0 l 14:06: Refill(s) [place] 00 ferrous 2020-0 No 325 mg = 1 Guy zoila sulfate 325 7-22 tab, PO, l MG Oral 14:06: BID, 0 [place] Tablet 00 Refill(s) Esomeprazol 2020-0 No 40 mg, PO, Memoria e 7-22 Daily, 0 l 14:06: Refill(s) Nigel 00 ferrous No 325 mg = 1 Guy zoila sulfate 325 7- tab, PO, l MG Oral 14:06: BID, 0 [place] Tablet 00 Refill(s) HYDROcodone 2019- No 1{tbl} Take 1 C [...] 8 (eight) hours for 3 days. ciprofloxac No 500mg Take [address] [facility] [...] Take [address] [facility] (ZOFRAN) 4 -02-18 by mouth Luke s - MG tablet 00:00: 00:00 every 12 Med ical 00 :00 (twelve) Center hours. ferrous 2018-02 Yes 1{tbl} Q.5D Take [address] [facility] sulfate 325 2-15 tablet by Marilyn es - (65 FE) MG 00:00: mouth 2 Medi dk tablet 00 (two) Center times daily. pantoprazol 2018-02 Yes 40mg Q.5D Take [address] [facility] e 0-23 by mouth 2 [facility]ukes - (PROTONIX) 00:00: (two) Medica l 40 MG 00 times Center tablet daily . HYDROcodone 2020- No 1{tbl} Take 1 C [...] needed. Max Daily Amount: 3 tablets docusate 2019- No 100mg Take [address] [facility] sodium 6-14 09-07 mg by Adriana - (COLACE) 00:00: 00:00 mouth as Medi dk 100 MG 00 :00 needed. Center capsule nystatin 2020- No Q.5D Apply [facility] (MYCOSTATIN 5-12 05-11 topically Mariah sweeney - ) 100,000 00:00: 23:59 2 (two) Medi dk unit/gram 00 :00 times Center powder daily. Immunizations Ordered Immunization Filled Immunization Date Status Commen ts Source Name Name Influenza Four-QIV PF 2019-10-[address] [facility] - 3YR+ 00:00:00 [facility] Center Meningococcal 2019-10-[address] [facility] - Conjugate 00:00:00 [facility] Center Pneumococcal 2019-10-[address] [facility] - Conjugate (Prevnar) 00:00:00 Medic al Center 13-Valent Meningococcal B, Omv 2019-10-[address] [facility] - 00:00:00 Medical Center HiB 2019-10-[address] [facility] - 00:[facility]:00 Medical Center Vital Signs Vital Name Observation Time Observation Value Comments Source Systolic blood 2019-10-24 08:32:00 95 mm[Hg] [facility] Diastolic blood 2019-10-24 08:32:00 58 mm[Hg] [facility] Heart rate 2019-10-24 08:32:00 74 /min [facility] Body temperature 2019-10-24 08:32:00 36.56 [facility] Respiratory rate 2019-10-24 08:32:00 17 /min [facility] Oxygen saturation in 2019-10-24 08:32:00 97 /min [facility] Arterial blood by Medical Ce nter Pulse oximetry Body weight 2019-10-21 06:00:00 73 kg [facility] BMI 2019-10-21 06:00:00 23.09 kg/m2 [facility] Body height 2019-10-15 16:58:00 177.8 cm [facility] Heart Rate 2019-09-01 04:14:00 [facility] Nigel Respitory Rate 2019-09-01 04:14:00 Memori al Nigel Systolic (mm Hg) 2019-09-01 04:14:00 Guy rial [place] Diastolic (mm Hg) 2019-09-01 04:14:00 Mem orial [place] Respitory Rate 2019-09-01 01:19:00 Memori al [place] Temperature Oral (F) 2019-09-01 00:33:00 99.1 F [facility] Nigel Heart Rate 2019-09-01 00:33:00 Memorial Nigel Respitory Rate 2019-09-01 00:33:00 Memori al [place] Systolic (mm Hg) 2019-09-01 00:33:00 Guy rial Nigel Diastolic (mm Hg) 2019-09-01 00:33:00 Mem orial [place] Temperature Oral (F) 2019-08-31 21:00:00 98.3 F [facility] [place] Heart Rate 2019-08-31 21:00:00 [facility] [place] Systolic (mm Hg) 2019-08-31 21:00:00 Guy rial [place] Diastolic (mm Hg) 2019-08-31 21:00:00 Mem orial Nigel Temperature Oral (F) 2019-08-31 17:00:00 98.4 F [facility] Nigel Height 2019-08-28 06:22:00 177.8 cm [facility] Weight 2019-08-28 06:22:00 [facility] BMI Calculated 2019-08-28 06:22:00 Linda Beauchamp Procedures Procedure Date / Time Performing Clinician Source Performed RHYTHM STRIP - SCAN 2019-10-28 12:11:28 ProviderPawan [facility] POCT-GLUCOSE METER 2019-10-24 08:37:00 [facility]ABOL[facility] PAN[facility] (7) 2019-10-24 06:13:00 [facility]-10-24 06:13[facility]-10-24 06:13[facility]00 [facility] PT[facility] 2019-10-24 06:13[facility]00 [facility] (HE[facility] ONLY) 2019-10-24 06:13:00 Fabiola [facility] POCT-GLUCOSE METER 2019-10-23 21:11:[address] [facility] POCT-GLUCOSE METER 2019-10-23 16:27:[address] [facility] POCT-GLUCOSE METER 2019-10-23 11:46:[address] [facility] POCT-GLUCOSE METER 2019-10-23 07:45:[address] [facility] BASIC METABOLIC PANEL (7) 2019-10-23 06:34:00 Xi Owenmsi [facility] MAGNESIUM 2019-10-23 06:34:00 [facility] 2019-10-23 06:34:00 [facility] PT[facility] 2019-10-23 06:34:00 [facility] CBC (HEMOGRAM ONLY) 2019-10-23 06:34:00 Fabiola [facility] CBC W/PLT COUNT & AUTO 2019-10-22 22:27:00 [facility] POCT-GLUCOSE METER 2019-10-22 21:30:[address] [facility] POCT-GLUCOSE METER 2019-10-22 15:36:[address] [facility] POCT-GLUCOSE METER 2019-10-22 12:14[facility] 2019-10-22 06:51:[address] [facility] POCT-GLUCOSE METER 2019-10-22 06:27:[address] [facility] BASIC METABOLIC PANEL (7) 2019-10-22 06:24:[address] [facility] MAGNESIUM 2019-10-22 06:24:00 [facility] PHOSPHORUS 2019-10-22 06:24:[address] [facility] PT/APTT 2019-10-22 06:24:[address] [facility] CBC (HEMOGRAM ONLY) 2019-10-22 06:24:00 Fabiola [facility] POCT-GLUCOSE METER 2019-10-21 23:48:[address] [facility] POCT-GLUCOSE METER 2019-10-21 18:40:00 Bryan cassie [facility] POCT-GLUCOSE METER 2019-10-21 12:29:[address] [facility] AMYLASE PERITONEAL FLUID 2019-10-21 10:19:00 Snow [facility] BASIC METABOLIC PANEL (7) 2019-10-21 09:59:00 ErinXiCr [facility] MAGNESIUM 2019-10-21 09:59:00 [facility] 2019-10-21 09:59:[address] [facility] PT/APTT 2019-10-21 09:59:00 [facility] CBC (HEMOGRAM ONLY) 2019-10-21 09:59:00 Fabiola [facility] SARS-COV2/RT-PCR ([facility] & 2019-10-21 07:15:[address] [facility] - REF LABS) [facility] POCT-GLUCOSE METER 2019-10-21 06:57:00 Sixto Ashleyfawad [facility] POCT-GLUCOSE METER 2019-10-21 06:28:00 [facility]an[facility]pefaw[facility] POCT-GLUCOSE METER 2019-10-21 05:58:00 Sixto Loganblissfieldfawad [facility] POCT-GLUCOSE METER 2019-10-21 00:05:00 Snow Adams [facility] POCT-GLUCOSE METER 2019-10-20 17:46:00 SixtoLoganlupefawad [facility] POCT-GLUCOSE METER 2019-10-20 11:45:00 Logan Adamslupefawad [facility] POCT-GLUCOSE METER 2019-10-20 07:04:00 SixtoLoganblissfieldfawad [facility] [facility] BASIC METABOLIC PANEL (7) 2019-10-20 03:39:00 Cr Owen [facility] MAGNESIUM 2019-10-20 03:39:00 Xi Owenmsi [facility] PHOSPHORUS 2019-10-20 03:39:[address] [facility] PT/APTT 2019-10-20 03:39:00 [facility] (HE[facility] ONLY[facility] 2019-10-20 03:39:00 Fabiola Le [facility] POCT-GLUCOSE METER 2019-10-20 00:18:00 Snow Adams [facility] TRANSFUSION SERVICE REPORT 2019-10-19 18:01:[address] [facility] - - SCAN Scanning [facility] POCT-GLUCOSE METER 2019-10-19 17:28:00 Snow Adams [facility] BASIC METABOLIC PANEL (7) 2019-10-19 16:11:00 Chelo Collins [facility] PHOSPHORUS 2019-10-19 16:11:00 MarthamnChelo [facility] MAGNESIUM 2019-10-19 16:11:00 [facility] POCT-GLUCOSE METER 2019-10-19 12:30:00 Snow Adams [facility] POCT-GLUCOSE METER 2019-10-19 11:56:00 Snow Adams [facility] XR CHEST 1 VIEW 2019-10-19 08:05:[address] [facility] - PORTABLE/BEDSIDE [facility] POCT-GLUCOSE METER 2019-10-19 06:37:00 Snow Adams [facility] BASIC METABOLIC PANEL (7) 2019-10-19 01:29:[address] [facility] MAGNESIUM 2019-10-19 01:29:00 Cr Owen [facility] PHOSPHORUS 2019-10-19 01:29:00 [facility] BLOOD GAS, ARTERIAL 2019-10-19 01:29:00 [facility] PT/APTT 2019-10-19 01:29:00 [facility] CBC (HEMOGRAM ONLY) 2019-10-19 01:29:00 [facility] POCT-GLUCOSE METER 2019-10-19 00:20:[address] [facility] PREPARE RBC 2019-10-18 23:55:00 Jessica [facility] PREPARE RBC 2019-10-18 23:54:00 Jessica [facility] CBC (HEMOGRAM ONLY) 2019-10-18 20:26:00 [facility] TRANSFUSION SERVICE REPORT 2019-10-18 18:05:00 Pawan Lowe [facility] POCT-GLUCOSE METER 2019-10-18 17:16:00 Sixto Bannerfawad [facility] CBC (HEMOGRAM ONLY) 2019-10-18 12:20:00 [facility] POCT-GLUCOSE METER 2019-10-18 12:01:00 Snow Adams [facility] BLOOD GAS, ARTERIAL 2019-10-18 05:05:00 [facility] CBC (HEMOGRAM ONLY) 2019-10-18 04:09:00 [facility] BASIC METABOLIC PANEL (7) 2019-10-18 04:09:[address] [facility] MAGNESIUM 2019-10-18 04:09:00 [facility] PHOSPHORUS 2019-10-18 04:09:[address] [facility] PT/APTT 2019-10-18 04:09:[address] [facility] XR CHEST 1 VIEW 2019-10-18 03:48:[address] [facility] - PORTABLE/BEDSIDE [facility] BLOOD GAS, ARTERIAL 2019-10-18 01:22:00 Issa Johnson [facility] POCT-GLUCOSE METER 2019-10-18 00:42:00 Logan Adamslupefawad [facility] CBC (HEMOGRAM ONLY) 2019-10-17 22:18:00 [facility] BASIC METABOLIC PANEL (7) 2019-10-17 22:18:00 Erinparker [facility] I [facility] MAGNESIUM 2019-10-17 22:18:[address] [facility] PHOSPHORUS 2019-10-17 22:18:00 [facility] BLOOD GAS, ARTERIAL 2019-10-17 22:18:00 [facility] PT/APTT 2019-10-17 22:18:00 [facility] PREPARE PLASMA 2019-10-17 21:19:00 Catherine Maciel Khadijah [facility] PREPARE PLATELETS 2019-10-17 21:19:00 Catherine Maciel [facility] TRANSFUSE LEUKO-REDUCED 2019-10-17 20:23:46 Nelson Grier [facility] - RED BLOOD CELLS [facility] TRANSFUSE LEUKO-REDUCED 2019-10-17 19:57:19 Nelson Grier [facility] - RED BLOOD CELLS [facility] CALCIUM, IONIZED 2019-10-17 19:50:15 Marc Clark [facility] BLOOD GAS, ARTERIAL 2019-10-17 19:50:15 Marc Clark [facility] SODIUM NA-STAT LAB 2019-10-17 19:50:15 Marc Clark CH I [facility] POTASSIUM-STAT LAB 2019-10-17 19:50:15 Marc Clark [facility] GLUCOSE-STAT LAB 2019-10-17 19:50:15 Marc Clark [facility] HGB/HCT (H&H) - STAT LAB 2019-10-17 19:50:15 Marc Clark [facility] PROTHROMBIN TIME/INR 2019-10-17 19:38:51 Deborah Joiner [facility] APTT 2019-10-17 19:38:[address] [facility] TRANSFUSE LEUKO-REDUCED 2019-10-17 19:35:30 Nelson Grier [facility] I [facility] RED BLOOD CELLS [facility] PREPARE RBC 2019-10-17 19:35:00 Catherine Maciel Khadijah [facility] TRANSFUSE LEUKO-REDUCED 2019-10-17 19:21:12 Nelson Grier [facility] I [facility] RED BLOOD CELLS [facility] CALCIUM, IONIZED 2019-10-17 18:51:43 Marc Clark [facility] BLOOD GAS, ARTERIAL 2019-10-17 18:51:43 Marc Clark [facility] SODIUM NA-STAT LAB 2019-10-17 18:51:43 Marc Clark CH I [facility] POTASSIUM-STAT LAB 2019-10-17 18:51:43 Marc Clark [facility] GLUCOSE-STAT LAB 2019-10-17 18:51:43 Marc Clark [facility] HGB/HCT (H&H) - STAT LAB 2019-10-17 18:51:43 Marc Clark [facility] TRANSFUSE LEUKO-REDUCED 2019-10-17 18:41:07 Nelson Grier [facility] I [facility] - RED BLOOD CELLS [facility] TYPE AND SCREEN, AUTOMATED 2019-10-17 17:32:00 Marc Clark [facility] [place] FLUORO NON-SPECIFIC UP 2019-10-17 17:14:00 Marc Clark [facility] TO 1 [facility] BLOOD GAS, ARTERIAL 2019-10-17 16:59:19 Marvel [facility] SODIUM NA-STAT LAB 2019-10-17 16:59:19 Marvel [facility] POTASSIUM-STAT LAB 2019-10-17 16:59:19 Nelson Grier [facility] GLUCOSE-STAT LAB 2019-10-17 16:59:19 Nelson Grier [facility] HGB/HCT (H&H) - STAT LAB 2019-10-17 16:59:19 Nelson Grier [facility] TISSUE EXAM 2019-10-17 16:26:00 Marc Clark [facility] BLOOD GAS, ARTERIAL 2019-10-17 15:20:44 Nelson Grier [facility] SODIUM NA-STAT LAB 2019-10-17 15:20:44 Marvel [facility] POTASSIUM-STAT LAB 2019-10-17 15:20:44 Nelson Grier [facility] GLUCOSE-STAT LAB 2019-10-17 15:20:[address] [facility] HGB/HCT (H&H) - STAT LAB 2019-10-17 15:20:44 Nelson Grier [facility] CHOLECYSTECTOMY 2019-10-17 13:39:00 Marc Clark [facility] SPLENECTOMY 2019-10-17 13:39:00 Marc Clark [facility] POCT-GLUCOSE METER 2019-10-17 06:21:00 Snow Adams [facility] POCT-GLUCOSE METER 2019-10-17 01:06:00 Logan Adamsblissfieldfawad [facility] CT ABDOMEN/PELVIS WITH & 2019-10-16 10:43:00 Snow Adams [facility] WITHOUT IV CONTRAST [facility] er REPORT OF PROCEDURE - 2019-10-15 18:42:29 Wilmer Santiago [facility] ENDOSCOPY [facility] UPPER ENDOSCOPY,ULTRASOUND 2019-10-15 18:02:00 Wilmer Santiago [facility] POCT-GLUCOSE METER 2019-10-15 12:47:[address] [facility] POCT-GLUCOSE METER 2019-10-15 12:14:[address] [facility] POCT-GLUCOSE METER 2019-10-15 08:52:00 [facility] POCT-GLUCOSE METER 2019-10-15 08:31:[address] [facility] URINALYSIS W/ MICROSCOPIC 2019-10-15 08:13:00 Cr Owen [facility] IGG SUBCLASS-4 ONLY 2019-10-15 05:32:00 [facility] COMPREHENSIVE METABOLIC 2019-10-15 05:32:00 Jogre Arcos In [facility] CBC (HEMOGRAM ONLY) 2019-10-15 05:32:00 Jorge Arcos In [facility] PT/APTT 2019-10-15 05:32:00 Jorge Arcos In [facility] HEPATIC FUNCTION PANEL 2019-10-14 11:59:00 [place] [facility] BASIC METABOLIC PANEL (7) 2019-10-14 11:59:00 [place] Ricardo [facility] XR ABDOMEN / KUB 1 VIEW 2019-10-14 09:16:00 [place] [facility] SARS-COV2/RT-PCR ([facility] & 2019-10-14 04:48:[address] [facility] - REF LABS) [facility] BASIC METABOLIC PANEL (7) 2019-10-14 04:34:00 JessicaCatherine hua Khadijah [facility] HEPATIC FUNCTION PANEL 2019-10-14 04:34:00 JessicaCatherine hua I [facility] MAGNESIUM 2019-10-14 04:34:00 JessicaCatherine hua [facility] PT/APTT 2019-10-14 04:34:00 Jessica, [facility] IRON, TIBC, % SAT. 2019-10-14 04:34:00 JessicaCatherine hua [facility] (WITHOUT FERRITIN) Ltac, Located Within [facility] LIPASE 2019-10-14 04:34:00 [facility] TRIGLYCERIDES 2019-10-14 04:34:00 [facility] CBC W/PLT COUNT & AUTO 2019-10-14 04:34:[address] [facility] SARS-COV2/RT-PCR ([facility] & 2019-08-26 19:33:00 [facility] REF LABS) [facility] RHYTHM STRIP - SCAN 2019-02-26 16:18:13 Provider, [facility] TRANSFUSION SERVICE REPORT 2019-02-19 18:00:43 Provider, [facility] RHYTHM STRIP - SCAN 2019-02-19 11:21:51 Provider, [facility] PREPARE LEUKO-REDUCED RBC 2019-02-18 23:54:00 Jacob Pinon [facility] TRANSFUSION SERVICE REPORT 2019-02-18 18:00:29 Provider, [facility] COMPREHENSIVE METABOLIC 2019-02-18 13:36:00 Brian Franklin [facility] FERRITIN 2019-02-18 13:36:00 Brian Franklin [facility] HEMOGLOBIN AND HEMATOCRIT 2019-02-18 12:16:00 Jacob Pinon [facility] TRANSFUSE LEUKO-REDUCED 2019-02-17 14:53:01 Austin Pinons[place] Anaid [facility] RED BLOOD CELLS [facility] TYPE AND SCREEN, AUTOMATED 2019-02-17 09:56:00 [facility] Anaid [facility] HEMOGLOBIN AND HEMATOCRIT 2019-02-17 06:19:00 Carlos Fan [facility] CBC (HEMOGRAM ONLY) 2019-02-17 04:18:[address] [facility] Anaid [facility] BASIC METABOLIC PANEL (7) 2019-02-17 04:18:[address] [facility] Anaid [facility] VITAMIN B12 AND FOLATE 2019-02-17 04:18:00 [facility] TSH/FREE T4 IF INDICATED 2019-02-17 04:18:00 Jacob Pinon [facility] IRON, TIBC, % SAT. 2019-02-17 04:18:00 [place] Anaid [facility] (WITHOUT FERRITIN) [facility] LIPASE 2019-02-17 04:18:00 [place] Ricardo [facility] HEMOGLOBIN AND HEMATOCRIT 2019-02-16 10:19:[address] [facility] Anaid [facility] HEPATIC FUNCTION PANEL 2019-02-16 04:23:00 [facility] PT/APTT 2019-02-16 04:23:00 Fortunato, [facility] PROTHROMBIN TIME/INR 2019-02-16 04:23:00 Fortunato, cece [facility] CBC (HEMOGRAM ONLY) 2019-02-16 04:23:[address] [facility] Anaid [facility] COMPREHENSIVE METABOLIC 2019-02-16 04:23:00 [place] Anaid [facility] LIPASE 2019-02-16 04:23:00 [place] [facility] REPORT OF PROCEDURE - 2019-02-15 12:51:41 Naz, Uriah Goldberg [facility] [place] ER[facility] 2019-02-15 12:32:00 Naz, Uriah Goldberg [facility] CYTOLOGY REQUEST 2019-02-15 12:26:16 Naz, Uriah MaryPawan [facility] CYTOLOGY 2019-02-15 12:26:00 Naz, Uriah Pawan [facility] CBC W/PLT COUNT & AUTO 2019-02-15 11:55:00 [facility] ERCP 2019-02-15 11:00:00 Naz, Uriah Goldberg [facility] ERCP,BALLOON SWEEPING 2019-02-15 11:00:00 Naz, Uriah Paawn [facility] ERCP,BILIARY STENT 2019-02-15 11:00:00 Naz, Uriah [facility] HEPATIC FUNCTION PANEL 2019-02-15 06:00:00 Melissa Farmer [facility] BASIC METABOLIC PANEL (7) 2019-02-15 06:00:00 Melissa Farmer [facility] PT/APTT 2019-02-15 06:00:00 Melissa Farmer [facility] PROTHROMBIN TIME/INR 2019-02-15 06:00:00 Melissa Farmer [facility] CBC W/PLT COUNT & AUTO 2019-02-14 06:24:00 [facility] (CELLAVISION MANUAL DIFF) 2019-02-14 06:24:00 Melissa Farmer [facility] HEPATIC FUNCTION PANEL 2019-02-14 04:34:00 Melissa Farmer [facility] BASIC METABOLIC PANEL (7) 2019-02-14 04:34:00 Melissa Farmer [facility] PT/APTT 2019-02-14 04:34:00 Melissa Farmer [facility] PROTHROMBIN TIME/INR 2019-02-14 04:34:[address] [facility] Encounters Start End Encounter Admission Attending Care Care Encounter Source Date/Time Date/Time Type Type Clinicians Facility Department ID 2019-10-14 Outpatient [facility] [id number] MH HH 12:19:08 2019-09-02 Inpatient U [facility] MED [id number] MHH H 05:03:00 2019-08-28 Inpatient [facility] [id number] MHS W 00:57:00 2019-08-28 2019-08-28 Outpatient Ojeih, [facility] [id number] 00:57:00 00:57:00 Carlos Larson 2019-08-28 2019-08-28 Outpatient Ojeih, [facility] [id number] 00:57:00 00:57:00 Carlos Larson Results Test Description Test Time Test Comments Results Result Comments Source POC-Glucose meter 2019-10-24 08:48:00 Test Item Value Reference Range Interpretation Comme nts POC-Glucose Meter (test code = 70 mg/dL 70-110 : TESTED AT [facility] [address]) [facility], [address] 30: Parking Inspector/Techni romain ID = [id number] for CARSON JOSEPH S Lab Interpretation (test code = Normal 22673-8) [facility] [id number] 08:48:00 Test Item Value Reference Range Interpretation Comments POC-GLUCOSE METER 70 mg/dL 70-110 : TESTED A T [facility] [address] (BEAKER) (test code = BERTNE R [facility], 1538) [address]: Parking Inspector/Techni romain ID = [id number] for DELON WESLEYESS [id number] 07:51:00 Test Item Value Reference Range Interpretation Comments Phosphorus (test code = 3.9 mg/dL 2.3-4.7 2777-1) ABAD (test code = ABAD) Parking Inspector ID - JESUS LAROSE F Lab Interpretation (test Normal code = 37272-4) [facility]2020-09-18 07:51:00 Test Item Value Reference Range Interpretation Comments PHOSPHORUS (BEAKER) (test code = 3.9 mg/dL 2.3-4.7 604) Parking Inspector ID - JESUS LAROSE FBasic Metabolic [id number] 07:39:00 Test Item Value Reference Range Interpretation Comments Sodium (test code = 140 meq/L 691-944 2539-2) Potassium (test code = 4.3 meq/L 3.5-5.1 2823-3) Chloride (test code = 109 meq/L 98-107 H 2075-0) CO2 (test code = 26 meq/L 22-29 2028-9) BUN (test code = 2 mg/dL 7-21 L 3094-0) Creatinine (test code 0.50 mg/dL 0.57-1.25 L = 2160-0) Glucose (test code = 72 mg/dL 70-105 2345-7) Calcium (test code = 7.6 mg/dL 8.4-10.2 L 42446-1) EGFR (test code = 195 mL/min/1.73 [place] [address]-6) NOT ACCURATE CREATININE CLEARANCE IN PREDICTING GLOMERULAR FILTRATION RATE . ESTIMATED GFR I S NOT APPLICABLE FOR DIALYSIS PATIENTS. ABAD (test code = ABAD) Parking Inspector HELIO - JESUS Loya Lab Interpretation Abnormal (test code = 35573-5) [facility] METABOLIC [id number] 07:39:00 Test Item Value Reference Range Interpretation Comments SODIUM (BEAKER) 140 meq/L 136-145 (test code = 381) POTASSIUM (BEAKER) 4.3 meq/L 3.5-5.1 (test code = 379) CHLORIDE (BEAKER) 109 meq/L 98-107 H (test code = 382) CO2 (BEAKER) (test 26 meq/L 22-29 code = 355) BLOOD UREA NITROGEN 2 mg/dL 7-21 L (BEAKER) (test code = 354) CREATININE (BEAKER) 0.50 mg/dL 0.57-1.25 L (test code = 358) GLUCOSE RANDOM 72 mg/dL 70-105 (BEAKER) (test code = 652) CALCIUM (BEAKER) 7.6 mg/dL 8.4-10.2 L (test code = 697) EGFR (BEAKER) (test 195 mL/min/1.73 ESTIM ATED GFR IS code = 1092) sq m NOT ACCURATE CREATININE CLEARANCE IN PREDICTING GLOMERULAR FILTRATION RATE . ESTIMATED GFR I S NOT APPLICABLE FOR DIALYSIS PATIEN TS. Parking Inspector HELIO - JESUS [id number] 07:18:00 Test Item Value Reference Range Interpretation Comments Magnesium (test code = 1.4 mg/dL 1.6-2.6 L 65393-1) ABAD (test code = ABAD) Parking Inspector ID - JESUS L Lab Interpretation (test Abnormal code = 30512-7) [facility]-18 07:18:00 Test Item Value Reference Range Interpretation Comments MAGNESIUM (BEAKER) (test code = 1.4 mg/dL 1.6-2.6 L 627) Parking Inspector ID - JESUS LCBC (Hemogram only)2019-10-24 06:33:00 Test Item Value Reference Range Interpretation Comments WBC (test code = 6690-2) 12.7 3.5- 10.5 K/L H RBC (test code = 789-8) 3.15 4.63- 6.08 M/L L MCHC (test code = 786-4) 31.3 32.3- 36.5 GM/DL L Hematocrit (test code = 4544-3) 29.1 % 40.1-51 L MCV (test code = 787-2) 92.4 fL 79-92.2 H MCH (test code = 785-6) 28.9 pg 25.7-32.2 RDW (test code = 788-0) 15.7 % 11.6-14.4 H Platelets (test code = 777-3) 614 150- 450 K/CU MM H MPV (test code = 07835-6) 10.0 fL 9.4-12.4 nRBC (test code = 413) 0 0- 0 /100 WBC Lab Interpretation (test code = Abnormal 04599-8) [facility]2019-10-24 06:33:00 Test Item Value Reference Range Interpretation Comments WHITE BLOOD CELL COUNT (BEAKER) 12.7 K/ L 3.5-10.5 H (test code = 775) RED BLOOD CELL COUNT (BEAKER) 3.15 M/ L 4.63-6.08 L (test code = 761) HEMOGLOBIN (BEAKER) (test code = 9.1 GM/DL 13.7-17.5 L 410) HEMATOCRIT (BEAKER) (test code = 29.1 % 40.1-51.0 L 411) MEAN CORPUSCULAR VOLUME (BEAKER) 92.4 fL 79.0-92.2 H (test code = 753) MEAN CORPUSCULAR HEMOGLOBIN 28.9 pg 25.7-32.2 (BEAKER) (test code = 751) MEAN CORPUSCULAR HEMOGLOBIN CONC 31.3 GM/DL 32.3-36.5 L (BEAKER) (test code = 752) RED CELL DISTRIBUTION WIDTH 15.7 % 11.6-14.4 H (BEAKER) (test code = 412) PLATELET COUNT (BEAKER) (test 614 K/CU MM 150-450 H code = 756) MEAN PLATELET VOLUME (BEAKER) 10.0 fL 9.4-12.4 (test code = 754) NUCLEATED RED BLOOD CELLS 0 /100 WBC 0-0 (BEAKER) (test code = 413) [id number] 06:32:00 Test Item Value Reference Range Interpretation Comments Protime (test code = 20.3 11.9- 14.2 H 5902-2) seconds INR (test code = 1.79 <=5.90 6301-6) PTT (test code = 49.0 22.5- 36.0 H 10250-4) seconds ABAD (test code = ABAD) Effective 07/03/2018: PT Reference Range ChangeNew: 11.9-14.2 Previous: 11.7-14.7 RECOMMENDED COUMADIN/WARFARIN INR THERAPY RANGESSTANDARD DOSE: 2.0-3.0 Includes: PROPHYLAXIS for venous thrombosis, systemic embolization; TREATMENT for venous thrombosis and/or pulmonary embolus.HIGH RISK: Target INR is 2.5-3.5 for patients wiht mechanical heart valves. Lab Interpretation Abnormal (test code = 78166-6) [facility]/[id number] 06:32:00 Test Item Value Reference Range Interpretation Comments PROTIME (BEAKER) (test code = 20.3 seconds 11.9-14.2 H 759) INR (BEAKER) (test code = 370) 1.79 <=5.90 PARTIAL THROMBOPLASTIN TIME 49.0 seconds 22.5-36.0 H (BEAKER) (test code = 760) Effective 07/03/2018: PT Reference Range ChangeNew: 11.9-14.2 Previous: 11.7- 14.7RECOMMENDED COUMADIN/WARFARIN INR THERAPY RANGESSTANDARD DOSE: 2.0-3.0 Includes: PROPHYLAXIS for venous thrombosis, systemic embolization; TREATMENT for venous thrombosis and/or pulmonary embolus.HIGH RISK: Target INR is2.5-3.5 for patients wiht mechanical heart valves.POCT-GLUCOSE [id number] 21:22:00 Test Item Value Reference Range Interpretation Comments POC-GLUCOSE METER 83 mg/dL 70-110 : TESTED A T [facility] [address] (BEAKER) (test code = [address] [employer] [facility], 1538) [address]: Parking Inspector/Techni romain ID = [id number] for MACIEL ANDREWS POCT-GLUCOSE [id number] 16:39:00 Test Item Value Reference Range Interpretation Comments POC-GLUCOSE METER 70 mg/dL 70-110 : TESTED A T [facility] [address] (BEAKER) (test code = [address] [employer] [facility], 1538) [address]: Parking Inspector/Techni romain ID = [id number] for AKIKO S, CORNEL POCT-GLUCOSE [id number] 11:58:00 Test Item Value Reference Range Interpretation Comments POC-GLUCOSE METER 86 mg/dL 70-110 : TESTED A T [facility] [address] (BEAKER) (test code = [address] [employer] [facility], 1538) [address]: Parking Inspector/Techni romain ID = [id number] for PRINCESS LUPILLO BASIC METABOLIC [id number] 08:03:00 Test Item Value Reference Range Interpretation Comments SODIUM (BEAKER) 136 meq/L 136-145 (test code = 381) POTASSIUM (BEAKER) 4.3 meq/L 3.5-5.1 (test code = 379) CHLORIDE (BEAKER) 106 meq/L 98-107 (test code = 382) CO2 (BEAKER) (test 24 meq/L 22-29 code = 355) BLOOD UREA NITROGEN 2 mg/dL 7-21 L (BEAKER) (test code = 354) CREATININE (BEAKER) 0.50 mg/dL 0.57-1.25 L (test code = 358) GLUCOSE RANDOM 79 mg/dL 70-105 (BEAKER) (test code = 652) CALCIUM (BEAKER) 7.5 mg/dL 8.4-10.2 L (test code = 697) EGFR (BEAKER) (test 195 mL/min/1.73 ESTIM ATED GFR IS code = 1092) sq m NOT ACCURATE CREATININE CLEARANCE IN PREDICTING GLOMERULAR FILTRATION RATE . ESTIMATED GFR I S NOT APPLICABLE FOR DIALYSIS PATIEN TS. Parking Inspector ID - [id number] 08:01:00 Test Item Value Reference Range Interpretation Comments PHOSPHORUS (BEAKER) (test code = 4.2 mg/dL 2.3-4.7 604) Parking Inspector ID - [id number] 08:01:00 Test Item Value Reference Range Interpretation Comments MAGNESIUM (BEAKER) (test code = 1.3 mg/dL 1.6-2.6 L 627) Parking Inspector ID - HANIANGPOCT-GLUCOSE [id number] 07:57:00 Test Item Value Reference Range Interpretation Comments POC-GLUCOSE METER 78 mg/dL 70-110 : TESTED A T [facility] [address] (BEAKER) (test code = [place], 1538) [address]: Parking Inspector/Techni rmoain ID = [id number] for AKIKO S, CORNEL CBC (HEMOGRAM ONLY)2019-10-23 07:26:00 Test Item Value Reference Range Interpretation Comments WHITE BLOOD CELL COUNT (BEAKER) 12.2 K/ L 3.5-10.5 H (test code = 775) RED BLOOD CELL COUNT (BEAKER) 3.37 M/ L 4.63-6.08 L (test code = 761) HEMOGLOBIN (BEAKER) (test code = 9.7 GM/DL 13.7-17.5 L 410) HEMATOCRIT (BEAKER) (test code = 30.9 % 40.1-51.0 L 411) MEAN CORPUSCULAR VOLUME (BEAKER) 91.7 fL 79.0-92.2 (test code = 753) MEAN CORPUSCULAR HEMOGLOBIN 28.8 pg 25.7-32.2 (BEAKER) (test code = 751) MEAN CORPUSCULAR HEMOGLOBIN CONC 31.4 GM/DL 32.3-36.5 L (BEAKER) (test code = 752) RED CELL DISTRIBUTION WIDTH 15.7 % 11.6-14.4 H (BEAKER) (test code = 412) PLATELET COUNT (BEAKER) (test 539 K/CU MM 150-450 H code = 756) MEAN PLATELET VOLUME (BEAKER) 10.8 fL 9.4-12.4 (test code = 754) NUCLEATED RED BLOOD CELLS 0 /100 WBC 0-0 (BEAKER) (test code = 413) [id number] 07:18:00 Test Item Value Reference Range Interpretation Comments PROTIME (BEAKER) (test code = 25.7 seconds 11.9-14.2 H 759) INR (BEAKER) (test code = 370) 2.42 <=5.90 PARTIAL THROMBOPLASTIN TIME 57.5 seconds 22.5-36.0 H (BEAKER) (test code = 760) Effective 07/03/2018: PT Reference Range ChangeNew: 11.9-14.2 Previous: 11.7- 14.7RECOMMENDED COUMADIN/WARFARIN INR THERAPY RANGESSTANDARD DOSE: 2.0-3.0 Includes: PROPHYLAXIS for venous thrombosis, systemic embolization; TREATMENT for venous thrombosis and/or pulmonary embolus.HIGH RISK: Target INR is2.5-3.5 for patients wiht mechanical heart valves.CBC with platelet count + automated [id number] 22:51:00 Test Item Value Reference Range Interpretation Comments WBC (test code = 6690-2) 11.5 3.5- 10.5 K/L H RBC (test code = 789-8) 4.06 4.63- 6.08 M/L L MCHC (test code = 786-4) 32.5 32.3- 36.5 GM/DL L Hematocrit (test code = 4544-3) 37.2 % 40.1-51 L MCV (test code = 787-2) 91.6 fL 79-92.2 MCH (test code = 785-6) 29.8 pg 25.7-32.2 RDW (test code = 788-0) 15.5 % 11.6-14.4 H Platelets (test code = 777-3) 568 150- 450 K/CU MM H MPV (test code = 23125-6) 11.0 fL 9.4-12.4 nRBC (test code = 413) 0 0- 0 /100 WBC % Neutros (test code = 429) 65 % % Lymphs (test code = 430) 10 % % Monos (test code = 431) 10 % % Eos (test code = 432) 14 % % Baso (test code = 437) 1 % # Neutros (test code = 670) 7.41 1.78- 5.38 K/L H # Lymphs (test code = 414) 1.16 1.32- 3.57 K/L L # Monos (test code = 415) 1.11 0.30- 0.82 K/L H # Eos (test code = 416) 1.63 0.04- 0.54 K/L H # Baso (test code = 417) 0.09 0.01- 0.08 K/L H Immature Granulocytes-Relative 0 % 0-1 (test code = 2801) Lab Interpretation (test code = Abnormal 93177-1) [facility] W/PLT COUNT & AUTO [id number] 22:51:00 Test Item Value Reference Range Interpretation Comments WHITE BLOOD CELL COUNT (BEAKER) 11.5 K/ L 3.5-10.5 H (test code = 775) RED BLOOD CELL COUNT (BEAKER) 4.06 M/ L 4.63-6.08 L (test code = 761) HEMOGLOBIN (BEAKER) (test code = 12.1 GM/DL 13.7-17.5 L 410) HEMATOCRIT (BEAKER) (test code = 37.2 % 40.1-51.0 L 411) MEAN CORPUSCULAR VOLUME (BEAKER) 91.6 fL 79.0-92.2 (test code = 753) MEAN CORPUSCULAR HEMOGLOBIN 29.8 pg 25.7-32.2 (BEAKER) (test code = 751) MEAN CORPUSCULAR HEMOGLOBIN CONC 32.5 GM/DL 32.3-36.5 (BEAKER) (test code = 752) RED CELL DISTRIBUTION WIDTH 15.5 % 11.6-14.4 H (BEAKER) (test code = 412) PLATELET COUNT (BEAKER) (test 568 K/CU MM 150-450 H code = 756) MEAN PLATELET VOLUME (BEAKER) 11.0 fL 9.4-12.4 (test code = 754) NUCLEATED RED BLOOD CELLS 0 /100 WBC 0-0 (BEAKER) (test code = 413) NEUTROPHILS RELATIVE PERCENT 65 % (BEAKER) (test code = 429) LYMPHOCYTES RELATIVE PERCENT 10 % (BEAKER) (test code = 430) MONOCYTES RELATIVE PERCENT 10 % (BEAKER) (test code = 431) EOSINOPHILS RELATIVE PERCENT 14 % (BEAKER) (test code = 432) BASOPHILS RELATIVE PERCENT 1 % (BEAKER) (test code = 437) NEUTROPHILS ABSOLUTE COUNT 7.41 K/ L 1.78-5.38 H (BEAKER) (test code = 670) LYMPHOCYTES ABSOLUTE COUNT 1.16 K/ L 1.32-3.57 L (BEAKER) (test code = 414) MONOCYTES ABSOLUTE COUNT (BEAKER) 1.11 K/ L 0.30-0.82 H (test code = 415) EOSINOPHILS ABSOLUTE COUNT 1.63 K/ L 0.04-0.54 H (BEAKER) (test code = 416) BASOPHILS ABSOLUTE COUNT (BEAKER) 0.09 K/ L 0.01-0.08 H (test code = 417) IMMATURE GRANULOCYTES-RELATIVE 0 % 0-1 PERCENT (BEAKER) (test code = 2801) POCT-GLUCOSE [id number] 21:49:00 Test Item Value Reference Range Interpretation Comments POC-GLUCOSE METER 110 mg/dL 70-110 : TESTED A T [facility] 6720 (BEAKER) (test code = [place], 1538) [address]: Parking Inspector/Techni romain ID = [id number] for JEROMY CONTRERAS Tissue [id number] 16:34:00 Test Item Value Reference Range Interpretation Comments Case Report (test code Surgical Pathology = 104) Report Case: [id number] Authorizing Provider: Marc Clark MD Collected: 10/17/2019 04:26 PM Ordering Location: [facility] Received: 10/20/2019 08:32 AM SERVICES Pathologist: Carmina Grewal MD Specimens: A) - Gallbladder B) - Spleen DIAGNOSIS (test code = a1scuUNlZOIda6qfKADahZB 3220) uZzEwMzNcZnRuYmpcdWMxIH xckyDsZAkio1JpO0RlFdFmJ FxhbnNpXGRlZmxhbmcxMDMz TDG0slGnRATuXIcgGXKdREr eJk4boMNrlSjuQmApTWUgn1 ewagQAxrrlkNx1v4lcIMKoL uR5iEObUVncQ0yegpXnxTYn MTAiAXu5eU21MOAxyS8mvYM iUZfaaaHyHbM9BDncTASdQv L4ISIkhGRaICBvK5zkVEEhY PreOBOmDLvdtWJzGYB1bQlh q9X9gEYqgXFqpBxcHhReLjT iDHRFj4KkERg7mEvkO6PhQI IkPlT5sLWhYCPjTZciAOVkA FQjhxE8xV79LOptjaQ6qWDy f3Xsx11yj920sS0xxSGkKCG 8YTObCVMnvEOcPNJjYDT4YI AwcMSlX3o1HuDpeFYxC5P0P lJmnSVfT9W8RxBriWYvM2B4 CuAxaUSrZIPnfWQsRr3pjIL uiWFumw8sxw78ISV7y3NssP jeNRK6QJX1EcYwJs7iaEHvQ BDjFE3rKkPrzTOnZWEswg35 eYyqTTkkbyJepD6nYsYkDTL ysIWmSNRpNF7saREmHYAdrC 5ucmxjXHBnYnJkcmhlYWRcc XhbyrJxTh6kcYdeMEQ0BTrh O1adyB6gWcJ2ZDhwF2spdV6 hRJb9TNetjXH6WSVmwQ7lJZ 9mlozek3raNdClIR1jjmrki 0pqTzNeSJ9perh2u7xzJaPd KF4wtgdol9gdClEzNBgvIJY zxvloWESdy5YmrgtmOOTxj8 TqR8TgtAhcG41nhSgvK44qQ DXwbLcoeW7mcNkdvM3iXqOb ZnMyNFxxbFxwbGFpblxmMVx mczIwXGxhbmcxMDMzXGhpY2 iaZkKuLTTbdDzsYNnvz5DmH JCzECQgYtMuGR3vB9MYRINL GHZRKMOsZUNOQ4cRM4oDVUW RMT6YXLperFDpCXLbUI4mA0 mWK32XRtNNTZ1GVXSPK9GOG IwPFQLPIFHCZA5AHAJHONIT BK8WWKNqhTHqCTLmKI8gXj4 tX0ANJFSNQ46RFBCSHAWDMa RccGFyXHBhciBCLiBTUExFR Z0sWVJDBWVXZFQBW16CYokj OJBbGSNoSRAXNWtAUUX8FTC 3MiBHTVxwYXIgICAgLSBTUE dOWk6TVXoVZFrtdBFtAFEcT Y1wAElZOXSSJGVEGWiJYvYJ U96TRLPQSN1TWXSIPoFZISh ARJILL3OPNVRIGIGAD2mVY9 fUOMKHNl3ULXUYEBPTFYErh cGdVDTtKX4OO9GFXAFZMHCA UqISOQfON25STnBOOQ9DZGt QQMVSI57GORSyozaaSUPnG6 KhuIjdoGVkUBNmPCnpHCV2z 1xydGYxXHNzdGUxODAwMFxh bnNpXGRlZmxhbmcxMDMzXGZ 0bmJqXHVjMVxkZWZmMHtcZm 8obCAawKnjKvYuVZIny8ics hJGxxbjjNq4w8suRHObPpJ2 ePGvXQsqS6itdaVptSUhPJM fCJt3oV45XIZuuI6yxFZlHH qybqAvTxI3EPlqSFAyYzV7D AVjgFSlZKEqC4neGGXhZSud RGRaTBhbfKZaUHS9mCaqw9Q 5bGVzaGVldHtcZjBcZnMyMi LEm5AaWGr2qTlbD2RzYXDjN aV8aDXiWPBmJLkgFKYjDINa lvN2cX65RMwrilY5zWWtq3T te48ou058lJ5qdBWjBOL1ZR UsSGQagONiIHRxPIJ9WWUwe PFgF2ijHUJvCC9oegoaSDdc YQjnMJMofOG8QJOjuKHuE8W pVBCdCMmwKBOtwap3DyYbMi 0jfYSinWtkXWymm3axg8vxr NPdMzl4OUEmKfIdIhgnNGzu q2Cuo6xrEXBhgf5zTCL8wMR fhAivb2P2pSGhORMemUGtLK QxKH3xeAFqIBRpxD8mzornP HBnYnJkcmhlYWRccGdicmRy De3hlSejVLS8BLedF1husE8 bXqY1GJurT8csoI9gQFx5EH etMMVrgGX5haH9ZQCpxKGjD 1DacK5nXNXzLY5ciwv5k3mr CCT0NQwuOEKrXaC1kdM0UYT jpBCgVMUjjRwcSFmum848XA Z4BgRiHDHqj2VbL5KmqShkW 72cgByoD84tITYylKwxvP3x pLjwbM0nUwCqLrWqRGrxaGb qDB0eYKKqD6pynAMiBJTjYF YiH4haWsQifY8lxFxlSRdqa fKjTTMgIok7MAHrbZPyGPDb Leb4UXQuMULbP03eukfeXEB 6aZ1rl0bgb8LjSHkzPOB5PW Xzk79hKQvrkcQ2QMfhFb43V JlsEMT3XqkkFXG6vA== CPT Code(s) (test code e4wppYOtKTPdwWTnSeOuXBE = 3357) rBOTtj5tmVXNsnLJtZnYvFj NcZnRuYmpcdWMxXGRlZmYwe 6lnd996eCDsd7ljNGAqKqW0 qEOoMLVslDSzM794f1asf3g dxpLxrWC5ERDeOZI5HPckzu ToqkJ1NDjpvCJiYcI8YRohs gRpCMpfnhMfwmRdJfx6YAGp D211FCW5bWofl8ixRTR1FQH sZBMiOpGhQp8seQXqH504GC QlLOOMMXJbmCw8WSKqsiNnw dQavGPTo412J096z6opKJEq yxZphEsOeeiya9ffZ871ZCG hcGVydzEyMjQwXHBhcGVyaD P5GLVoVB6ynfiwWlDeOQ2hu nbhDjQhVC8rqxd7GzAwLW1y cmdiNzIwXGhlYWRlcnkwXGZ ov7NdprwqBK1pJ2Dbw4T5iJ 9maXRcZGVmdGFiNzIwXGZvc j2lcLUrSHtix1JmKRT8nnN2 fBGumTLiIOFaTZ16Kavek5Q eKanyTPQ2HTKycaZko9Isa9 jpYfEfzaFeD2fbX9YnYHUnU NMiFUTsTtJvgpAhl0Xuk8Hl cKPkqJh2z4fkQZLhQOUdgVa tk8seNHK6TPErW8F0kXAbo7 jmNJntYKXijZM9qpptNVguU EWxdfK7bikpAJisRGKgmMX0 eubeSEbzJHRdQsH7qdcwIJt nRRXcVLQ6ZIgnp490WST7VA xzYmtwYWdlXHBnbmNvbnRcc GduZGVjXHBsYWluXHBsYWlu XGYwXGZzMjRccWxccGxhaW5 jGcCuNsVrWRwwLH3fAUXnE1 yjyQIoCZPzUXKuG0yiRyBpj R8zbUpmSIiixgQqDAa8XdD8 CzK2TUEyZ7rdIHS0 CLINICAL HISTORY (test f6xgjIQvWNAwhDIxBuWiZKT code = 3354) fIQGit9baNGOubNXzXfKcVx NcZnRuYmpcdWMxXGRlZmYwe 3nzr447cIUpi7tkZBIzJcY5 zQDyRSQozZMiN911s2xss9w xufUgfYI1VJTeFYY0HVpakl VqguG2VQhktVToGsQ7WYecc dUrPXvmrjRvrpVjHhb4WGOs J198IMQ1rVvxi4uhFNY8DYJ ePUXzLaLuCt8haFEiG405JA ScNDSMZKGmkFu6YIWxuwGxx xTdfAFQi758A737q8xdUCBy qbFoiWjWvzxrq0waT567QPO hcGVydzEyMjQwXHBhcGVyaD X0PMGvJW9xplcwTuZxWY2ex nsmGrVfFS7ozad7MqKhDD5b cmdiNzIwXGhlYWRlcnkwXGZ xb3LclwedRL9bD4Izu8Z6qI 9maXRcZGVmdGFiNzIwXGZvc g3mrYIpDLaly2QgJUR7ziK3 zZKrxQImPWDpIV91Qyczz4Z yFqwtQGH1RQFqjePok4Daw7 ivCyLeqvVzE0xuP4GyJLNvZ VHbJIUrXnTuioJhq8Lyq0Zo mZUzcKv3z4ccZGPjXLDqiWv tf4twTKO1ZJMtH9Z4qRCmb3 xoGTlpOEHtdSE6qhyuLXprG PXhbtI2wcawNLtfNGIibNP6 odsdOIvuFTZkMqN2hpwvOJb zKNMySFR0BRxpv753CQX2FD xzYmtwYWdlXHBnbmNvbnRcc GduZGVjXHBsYWluXHBsYWlu XGYwXGZzMjRccWxccGxhaW5 nVyDvHhBqVFfzYR5vNHHtY7 xmnXTwDZXtKTRiN8nhPfQtv F5ctDynZUbozqHgZXAiXB6r WYNhPVnvp7BqyuqmAUStro2 zhMLxmZGzQ0XaLZQlqJcjVG L9ycOdJHHjAonbGQDtLI5qd wLdtUt1eARgxDjvYTZccjXv p8SzZQ0xTqD9JAmsXPZtio4 iVb8agFTsFVutVEK2 SPECIMEN SOURCE (test k1fndPOoQRMmgNHdJuUtDSE code = 3377) hNWWpm6sbAHTcqZRsPvAmZg NcZnRuYmpcdWMxXGRlZmYwe 0ees339dFYyb8drRUDkWfP8 rETkIGOpjPGpS310j7gql4o pchOhdQH4HYLiWGR7YZqjuk MusgG3FLkazTYjQbS4IMhke iPjFMlzdwEdgoIbGmv4FEQf P750XUQ6kXtok0okLMI6BMH qGVUeQrFlAh4bjTKgG071UP RoNTCITBUsdKf0SRTgtrKol qXbePJHl791E690a6pjEMLu nuZlsYeEunlnt8bsH082DAG hcGVydzEyMjQwXHBhcGVyaD H3TERdAM4rjopfCjCzOQ2zp ksgZcAeYR1mlal2UoUmYQ0l cmdiNzIwXGhlYWRlcnkwXGZ ve6IsvjnrVT8oJ3Fjo8O4nR 9maXRcZGVmdGFiNzIwXGZvc g8ntPUgWKrme4MdDOT0dcY7 kAIvzRElEVReJA17Dzqwq8R uErgsXDQ8SZVsnbEon3Czz2 qpZrPnduVmV0ktS8AyEPJjR BLaJZDyGzQocoCli4Avd7Dv kHOxlYj1u3dxMGQaOGCtmWf qg8bkEFX7PGLxS6N1cQQyz5 nbIMxcGNZakFS6tiscKKoxT DEdgxF3ymwoTJejXXImtJT0 psksZKhdKMAjMkB5ptevIIn mXZHiZBJ1FDikc238VWK9EL xzYmtwYWdlXHBnbmNvbnRcc GduZGVjXHBsYWluXHBsYWlu XGYwXGZzMjRccWxccGxhaW5 gNtHaBxWrBUosYP8yZZQyM0 tflMDoKOJwJFKdI9cbYjHqj A2cqDiiHEuogdDuGCrsvQfd bGFkZGVyIGFuZCBzcGxlZW5 ccGFyfQ== GROSS DESCRIPTION w7zqsLMxALBahYPsAuNdTDW (test code = 3366) aRKOsw6gpMSXpyMXpFrYdFd NcZnRuYmpcdWMxXGRlZmYwe 2mqb775dCNra0mbTZIoOwS3 mVVzBYGreACbQ891XJXgARb bc3jsi8JeCVYsqFQqh5L1AD IFezbecWu2hUmzR95dt6K7P xzjV9grCKRgOPPlZ2UgKK4y WAEtThl1RMU2ONA3ZOCjZUY iD4HsBI3lOGVcfYGeNEa0c2 hwjSfrBDYfYKA5f2szAYmze sFaPD8vdy2sxGk4x6qlgcUj ZDMsCJBmpCWIENAyF3LqhHn dTc5bvAc0bZkxBcqfWNR6Ir s2IO3ppn76ole7sWojLVSzh tsqHkN4STfhPXVrohpsPJx2 MFxtYXJnbDcyMFxtYXJncjc yMFxtYXJndDcyMFxtYXJnYj hdUQepYOQzOKV7PDznu943Q MQ6MYxkf7kul5jglRDbDhz8 HRNfBhDuFdbgRGwbo2Gky5b cULGtcx6cKAM1zBJgqHoyz2 G3eTHsBKNxxESzscQjVDWmY hV2WIioBL3qzc50HTBcBXN0 gt8iqNSdcWqrmsEqfEEzGKc vS9QsNURuf688AHGyX0FxBU Ype5G5chYgOrTuPPFxdDB8s aQ7GNKcPNd9sYHptdV3wkFv pYMwL5pekF24HhLkaMUkC6Z sdQ06ZrLhrRMaN3LzkQ68Vt UykWGoC8GgfB60JiTwzOWzX LFxyQUeXg7mvWLhfOVvj3Pd gKWuCGtkF55be525VQEhnfL pR1nfqELhuovmvOZaoaogUF jfbkX9NAInLNNrZKriLDPuZ GZzMjBcbGFuZzEwMzNcaGlj gUokVDzlLkPcEEDlYPohC0z cZjFcZnMyMCBBLiBSZWNlaX ZlZCBmcmVzaCBsYWJlbGVkI HdpdGggdGhlIHBhdGllbnQn ekKsGN8qEMPrV0Kes4Cdp92 tbsNyYeIkRZWqYZDwV2LcaY YeIEMjFMCzwMOkHWX7MqRoD 65reE0lsPIeC0BmOEvfKS56 UKJfLScqTVLpOR4tbHLuWYN gyyS7oD87o2e3HD1cYP0eAI RmQIehSshxKRXsch1eRUfhy qNsoAJict1jIZM6UNXnLFIo U4jdtJgkNDH0U7AeQB1xQS2 iUBx6zDQsEA2xNJBfqYUgmi AgOhyjUJ1dFFntVTFumx1qZ EXyjpGpuxS3SZM8qvFcIKbf t61yr9XxVKPpTASffMFaejO isVImDCBbi93ia3BfqtduCk ripFqrbdOvyVNjlb3tErmpR MFnkvKbHSozzLr0ffSfriQr QG14PeFWfNGzpJRjj0KcFCw yFEUsot2uqd37qgTrdsIaoc HmzvK6sR3oGPoxOZdcuQhru OjrV0dnFYIjJEyyYSRnByUc lZ0eWiQyzkFaQU81ZGNmyoC cd5AehIriysFvSOZyAGS7Cc 2ilTUdLHKpdwYwZIYyQNL2U QZXDQ6NWl1rIPjhBGBxtJHk JBJtNYHjC8NbepLjWXBwHVO qHYmkUdWoMKDah0y5bZP7pW GgjYX9eAJcxXclIK2bnYXoH MFoB6Itv9ciknPsmQ8iJSYd LK7mTPLhz3OpVOLcXmXnloS mYUX3NjFaxCnkHCZfXPE5QS UpPmQtfUTbKhCzR13em2VhT NZeDMhytLuhYDChE7QlfIQn aW00zkTsd4AiZOQ8OHTjMSV orKyoGROqFkF8CuLUaXYbI1 Uxh6IrBJUirfRhrrK9IA4nl x9lowUuekEkdC98TFE9FKCq byBzdWJjYXBzdWxhciBsYWN kfhV2aG0cZGaeCUzkJB61rK GmROYoEKCyNGKynIPqi1WhN lPeGJPewCRglCS3ovEmFGXq HR4xwb07oitbiE8pc0hjrdE dmMShID8qENInxdYrOYLbEF KqCBOcZGJrapMzgU3xMyRMe sLuHCOkFVUbWLIwIJquUE30 aWZpZWQuIFxwYXJccGFyIEl nodUmc3AiSoIgaOEwTBYheR UgLSBjYXBzdWxlXHBhclxwY PFlK8YrpLskuhRgg9OsQeZs cGFyIEIxLCBmdWxsLXRoaWN pzwGjijOxWJF7mD7xVSFqaL A1lUCovN6vvNnmRSVroOXzV 7rlVOKjorNVAfrkcVTjMO8e nKlbGAZ4coQpmTsamqGfCFR tiJ5dgPIaGOEajp4= MICROSCOPIC j8vuaZFwNCDfdPPeHzDgHVE DESCRIPTION (test code eIGTzf2dsOLFmmHDwNuTkEe = 3371) NcZnRuYmpcdWMxXGRlZmYwe 1xxv275dZMgb9opMUExDjN5 dLOaBLWmqGAkO689r1bjj4a iicVflJQ2JAHtOCJ1TVfehm MfukY8TWfsuEBpWwM9LZgmd sErHWsaleYlxdCzGic1GXOp G104CPG3dGxcr8nuLLM5TDI bPQYxAiQbQy6yuWErK468VH NbIIDMBYSnoCp6UHYkxkSaj lHipXUEv939T402m4txGYQg nwMieLoXbtoxu5siE862JLF hcGVydzEyMjQwXHBhcGVyaD I7IOZzYR9ztjviSjAgQL6nq iamZwItUH2dkox1KwTsAC6l cmdiNzIwXGhlYWRlcnkwXGZ wg7EsppxxOA8rS5Elp8M3bR 9maXRcZGVmdGFiNzIwXGZvc i5erRTaJSrfa2VpJFM3vdQ1 dVFxxDCsAJYjZG44Uvcig0Q tHczbNRU0GNKclgQyu4Siw5 tzGeEibcQdH7lfS4JfTWAwM XHdIALxZyGbxdHxd0Dmw1Vb yQHhxRx0o9uxJNFjHGUjjDl ln5yzHCC1DAXyP4H7vEPfz7 ggWCmeQXXhqWE3ymywNCvyU EWwmaC2zawlTPhpCNZjwMN0 osahSNqpTGChCqY8kvstBEj eBMFcQDR8CSlqs660LTF3JG xzYmtwYWdlXHBnbmNvbnRcc GduZGVjXHBsYWluXHBsYWlu XGYwXGZzMjRccWxccGxhaW5 mOaEeKyViHGokIO7oFDOdX0 oewJDaIFTgPOCnA6deLyEdf Y7iiOvpOEfbaqTcHOTydwEe fh7tBTRhzIQrxY== [id number] 16:34:00Surgical Pathology Report Case: [id number] Authorizing Provider: Marc Clark MD Collected: 10/17/2019 04:26 PM Ordering Location: [facility] Received: 10/20/2019 08:32 AM SERVICES Pathologist: Carmina Grewal MD Specimens: A) - Gallbladder B) -Spleen A. GALLBLADDER, CHOLECYSTECTOMY: - CHRONIC CHOLECYSTITIS AND CHOLESTEROLOSIS - NO GALLSTONE PRESENTB. SPLEEN, SPLENECT WILLY: - WEIGHT: 272 GM - SPLENOMEGALY - MILD VASCULAR CONGESTION, NO SIGNIFICANT PATHOLOGIC ABNORMALITY - NEGATIVE FOR MALIGNANCY OR LYMPHOMACC/pl Signing Pathologist Direct Phone Line: [phone] signed by Carmina Grewal MD on 10/22/2019 at 4:34 [id number]; [id number] diagnosis: Chronic pancreatitis, unspecified pancreatitis type and splenic vein thrombosis. Gallbladder andspleenA. Received fresh labeled with the patient's name, accession number and "gallbladder"is a 7.5 cm in length x 1.5 cm in diameter, previously opened gallbladder. There is no attached cystic duct and no lymph node identified. The serosa is galvan-purple, smooth and hyperemic. Upon opening, there is no bile or calculus present. The mucosa is york-brown and velvety. The wall thickness is 0.2 cm. Net Technical Architect sections are submitted in cassette A1- A2. B. Received fresh labeled with the patient's name, accession number and " spleen" is a 272 gm, 15.0 x 10.0 x 2.5 cm spleen with a scant amount of attached hilar fat. The capsule is galvan-maroon and intact, no subcapsular laceration is identified. The cut surface displays a red-brown, homogeneous and unremarkable parenchyma. No masses are identified. Ink code: Blue - capsuleSection code: B1, full-thickness section capsule to hilar marginB2, parenchymato hilar marginPerformedPOCT-GLUCOSE [id number] 15:47:00 Test Item Value Reference Range Interpretation Comments POC-GLUCOSE METER 91 mg/dL 70-110 : TESTED A T [facility] 6720 (BEAKER) (test code = [facility] [place], 1538) [address]: Parking Inspector/Techni romain ID = [id number] for [facility] POCT-GLUCOSE [id number] 12:25:00 Test Item Value Reference Range Interpretation Comments POC-GLUCOSE METER 101 mg/dL 70-110 : TESTED A T [facility] 6720 (BEAKER) (test code = [facility], 1538) [address]: Parking Inspector/Techni romain ID = [id number] for [facility] BASIC METABOLIC [id number] 10:59:00 Test Item Value Reference Range Interpretation Comments SODIUM (BEAKER) 137 meq/L 136-145 (test code = 381) POTASSIUM (BEAKER) 4.1 meq/L 3.5-5.1 (test code = 379) CHLORIDE (BEAKER) 107 meq/L 98-107 (test code = 382) CO2 (BEAKER) (test 26 meq/L 22-29 code = 355) BLOOD UREA NITROGEN 2 mg/dL 7-21 L (BEAKER) (test code = 354) CREATININE (BEAKER) 0.49 mg/dL 0.57-1.25 L (test code = 358) GLUCOSE RANDOM 81 mg/dL 70-105 (BEAKER) (test code = 652) CALCIUM (BEAKER) 7.8 mg/dL 8.4-10.2 L (test code = 697) EGFR (BEAKER) (test 200 mL/min/1.73 ESTIM ATED GFR IS code = 1092) sq m NOT ACCURATE CREATININE CLEARANCE IN PREDICTING GLOMERULAR FILTRATION RATE . ESTIMATED GFR I S NOT APPLICABLE FOR DIALYSIS PATIEN TS. Parking Inspector ID - SOTERO [id number] 10:54:00 Test Item Value Reference Range Interpretation Comments PHOSPHORUS (BEAKER) (test code = 4.6 mg/dL 2.3-4.7 604) Parking Inspector ID - SOTERO [id number] 10:54:00 Test Item Value Reference Range Interpretation Comments MAGNESIUM (BEAKER) (test code = 1.5 mg/dL 1.6-2.6 L 627) Parking Inspector ID - SOTERO MPOCT-GLUCOSE [id number] 07:03:00 Test Item Value Reference Range Interpretation Comments POC-GLUCOSE METER 177 mg/dL 70-110 H : Pt. refu sed rpt tst: (BEAKER) (test code = TESTED AT [facility] 7517 0477) [facility], [address]: Parking Inspector/Techni romian ID = [id number] for ERIC SANFORD [id number] 06:53:00 Test Item Value Reference Range Interpretation Comments PROTIME (BEAKER) (test code = 21.5 seconds 11.9-14.2 H 759) INR (BEAKER) (test code = 370) 1.93 <=5.90 PARTIAL THROMBOPLASTIN TIME 54.4 seconds 22.5-36.0 H (BEAKER) (test code = 760) Effective 07/03/2018: PT Reference Range ChangeNew: 11.9-14.2 Previous: 11.7- 14.7RECOMMENDED COUMADIN/WARFARIN INR THERAPY RANGESSTANDARD DOSE: 2.0-3.0 Includes: PROPHYLAXIS for venous thrombosis, systemic embolization; TREATMENT for venous thrombosis and/or pulmonary embolus.HIGH RISK: Target INR is2.5-3.5 for patients wiht mechanical heart valves.CBC (HEMOGRAM ONLY)2019-10-22 06:45:00 Test Item Value Reference Range Interpretation Comments WHITE BLOOD CELL COUNT (BEAKER) 11.1 K/ L 3.5-10.5 H (test code = 775) RED BLOOD CELL COUNT (BEAKER) 3.67 M/ L 4.63-6.08 L (test code = 761) HEMOGLOBIN (BEAKER) (test code = 10.7 GM/DL 13.7-17.5 L 410) HEMATOCRIT (BEAKER) (test code = 33.6 % 40.1-51.0 L 411) MEAN CORPUSCULAR VOLUME (BEAKER) 91.6 fL 79.0-92.2 (test code = 753) MEAN CORPUSCULAR HEMOGLOBIN 29.2 pg 25.7-32.2 (BEAKER) (test code = 751) MEAN CORPUSCULAR HEMOGLOBIN CONC 31.8 GM/DL 32.3-36.5 L (BEAKER) (test code = 752) RED CELL DISTRIBUTION WIDTH 15.7 % 11.6-14.4 H (BEAKER) (test code = 412) PLATELET COUNT (BEAKER) (test 457 K/CU MM 150-450 H code = 756) MEAN PLATELET VOLUME (BEAKER) 10.6 fL 9.4-12.4 (test code = 754) NUCLEATED RED BLOOD CELLS 0 /100 WBC 0-0 (BEAKER) (test code = 413) POCT-GLUCOSE [id number] 06:38:00 Test Item Value Reference Range Interpretation Comments POC-GLUCOSE METER 73 mg/dL 70-110 : TESTED A T [facility] 6720 (BEAKER) (test code = [facility], 1538) [address]: Parking Inspector/Techni romain ID = [id number] for ERIC TURCIOS POCT-GLUCOSE [id number] 23:59:00 Test Item Value Reference Range Interpretation Comments POC-GLUCOSE METER 87 mg/dL 70-110 : TESTED A T [facility] 6720 (BEAKER) (test code = [facility], 1538) [address]: Parking Inspector/Techni romain ID = [id number] for ERIC TURCIOS POCT-GLUCOSE [id number] 18:51:00 Test Item Value Reference Range Interpretation Comments POC-GLUCOSE METER 80 mg/dL 70-110 : TESTED A T [facility] 6720 (BEAKER) (test code = [facility], [facility]8) [address]: Parking Inspector/Techni romain ID = [id number] for Noemi Vivar Amylase Peritoneal [id number] 15:15:00 Test Item Value Reference Range Interpretation Comments AMYLASE, PERITONEAL 9 U/L See Comment FLUID (test code = 0773824) ABAD (test code = Amylase activity in ABAD) peritoneal fluids of non-pancreatic origin is often less than or equal to the amylase activity in blood, whereas elevated amylase activity has been reported in fluid of pancreatic origin (five-folds or higher compared to contemporaneously collected blood specimen).This test has been modified from the construction consultant's instructions and its performance characteristics were determined by [facility]. The laboratory is regulated under CLIA as qualified to perform high-complexity testing. This test has not been cleared or approved by the U.S. Food and Drug Administration. The reference intervals and other method performance specifications are unavailable for amylase in peritoneal fluid. Comparison of this result with the blood amylase is recommended. Parking Inspector ID - ENOC SERRANO [facility] [id number] 15:15:00 Test Item Value Reference Range Interpretation Comments AMYLASE, PERITONEAL FLUID (test code = 9 U/L See Comment [id number]) Amylase activity in peritoneal fluids of non-pancreatic origin is often less than or equal to the amylase activity in blood, whereas elevated amylase activity has been reported in fluid of pancreatic origin (five-folds or higher compared to contemporaneously collected blood specimen).This test has been modified from the construction consultant's instructions and its performance characteristics were determined by [facility]. The laboratory is regulated under CLIA as qualified to perform high-complexity testing. This test has not been cleared or approved by the U.S. Food and Drug Administration. The reference intervals and other method performance specifications are unavailable for amylase in peritoneal fluid. Comparison of this result with the blood amylase is recommended.Parking Inspector ID - SUDARSHANGAMYLASE PERITONEAL [id number] 15:15:00 Test Item Value Reference Range Interpretation Comments AMYLASE, PERITONEAL FLUID (test code = 15 U/L See Comment [id number]) Amylase activity in peritoneal fluids of non-pancreatic origin is often less than or equal to the amylase activity in blood, whereas elevated amylase activity has been reported in fluid of pancreatic origin (five-folds or higher compared to contemporaneously collected blood specimen).This test has been modified from the construction consultant's instructions and its performance characteristics were determined by [facility]. The laboratory is regulated under CLIA as qualified to perform high-complexity testing. This test has not been cleared or approved by the U.S. Food and Drug Administration. The reference intervals and other method performance specifications are unavailable for amylase in peritoneal fluid. Comparison of this result with the blood amylase is recommended.Parking Inspector ID - EYALGNESIUM 2019-10-21 14:08:00 Test Item Value Reference Range Interpretation Comments MAGNESIUM (BEAKER) 1.7 mg/dL 1.6-2.6 Specimen moderately (test code = 627) hemolyzed Parking Inspector ID - [id number] 14:08:00 Test Item Value Reference Range Interpretation Comments PHOSPHORUS (BEAKER) 4.1 mg/dL 2.3-4.7 Specimen moderately (test code = 604) hemolyzed Parking Inspector ID - ROSIANGBASIC METABOLIC [id number] 14:08:00 Test Item Value Reference Range Interpretation Comments SODIUM (BEAKER) 138 meq/L 136-145 (test code = 381) POTASSIUM (BEAKER) 4.6 meq/L 3.5-5.1 Specimen moderately (test code = 379) hemolyzed CHLORIDE (BEAKER) 106 meq/L 98-107 (test code = 382) CO2 (BEAKER) (test 26 meq/L 22-29 code = 355) BLOOD UREA NITROGEN 3 mg/dL 7-21 L (BEAKER) (test code = 354) CREATININE (BEAKER) 0.56 mg/dL 0.57-1.25 L Specimen moderately (test code = 358) hemolyzed GLUCOSE RANDOM 127 mg/dL 70-105 H (BEAKER) (test code = 652) CALCIUM (BEAKER) 8.0 mg/dL 8.4-10.2 L (test code = 697) EGFR (BEAKER) (test 171 mL/min/1.73 ESTIM ATED GFR IS code = 1092) sq m NOT ACCURATE CREATININE CLEARANCE IN PREDICTING GLOMERULAR FILTRATION RATE . ESTIMATED GFR I S NOT APPLICABLE FOR DIALYSIS PATIEN TS. Parking Inspector ID - ROSIANGSARS-CoV2/RT-PCR (Asymptomatic ONLY)2019-10-21 13:42:00 Test Item Value Reference Range Interpretation Comments SARS-COV2/RT-PCR Negative Not Detected, (test code = Negative, See 32552-4) external report for linked test SARS-COV-2 [facility] PERFORMING LAB (test code = 73798-8) ABAD (test code = Negative result for this ABAD) test determines that SARS-CoV-2 RNA was not present in the [...] of the Act. Fact Sheet for Healthcare Providers:https://www.[employer]/sites/default/f jcarlos/product/documents/F act_Sheet_HC_Providers_L ugq_AOWS-CjA-6.pdf Fact Sheet for Healthcare Patients:https://www.[employer]/sites/default/fi les/product/documents/Fa ct_Sheet_Patients_Lyra_S ARS-CoV-2.pdf Performing Laboratory:[facility], [place] [address] [place], [place] [address]ARS-COV2/RT-PCR ([facility])2019-10-21 13:42:00 Test Item Value Reference Range Interpretation Comments SARS-COV2/RT-PCR (test Negative Not Detected, Negative, code = 7981842) See external report for linked test SARS-COV-2 PERFORMING LAB [facility] ERYN (test code = 8537246) Negative result for this test determines that SARS-CoV-2 RNA was not present in the specimen above the Limit of Detection (LOD). However, Negative results do not preclude SARS-CoV-2 infection and should not be used as the sole basis for treatment or patient management decisions. Negative results mustbe combined with clinical observations, patient history, and epidemiological information. A false negative result may occur if a specimen is improperly collected, transported or handled. A false negative result should be considered if patient's recent exposures or clinical presentation indicate that COVID-19 (SARS-CoV-2) is likely and diagnostic tests for other causes of illness are negative. Re-testing should be considered in cases of suspected false negatives.The limit of detection for this assay is 800 copies/mL.This SARS CoV-2 test is a real-time RT-PCR [...] 564(g) of the Act.Fact Sheet for Healthcare Providers:https://www.[employer]/sites/default/files/product/documents/Fact_Shee k_IU_Lgloxubir_Tlmi_YIVZ-HoY-2.pdfFact Sheet for Healthcare Patients:https://www.[employer].com/sites/default/files/product/ documents/Uigc_Sbgky_Zyyvuqsv_Amif_TDYW-HiT-2.pdfPerforming Laboratory:[facility], [place] [id number]-JNNNTDK METER 2019-10-21 12:41:00 Test Item Value Reference Range Interpretation Comments POC-GLUCOSE METER 99 mg/dL 70-110 : TESTED A T [facility] 6720 (BEAKER) (test code = CHANTE Mohamud [facility], 1538) [address]: Parking Inspector/Techni romain ID = [id number] for JONATHAN JENKINS PT/[id number] 10:39:00 Test Item Value Reference Range Interpretation Comments PROTIME (BuysightAKER) (test code = 20.7 seconds 11.9-14.2 H 759) INR (BEAKER) (test code = 370) 1.83 <=5.90 PARTIAL THROMBOPLASTIN TIME 56.4 seconds 22.5-36.0 H (BEAKER) (test code = 760) Effective 07/03/2018: PT Reference Range ChangeNew: 11.9-14.2 Previous: 11.7- 14.7RECOMMENDED COUMADIN/WARFARIN INR THERAPY RANGESSTANDARD DOSE: 2.0-3.0 Includes: PROPHYLAXIS for venous thrombosis, systemic embolization; TREATMENT for venous thrombosis and/or pulmonary embolus.HIGH RISK: Target INR is2.5-3.5 for patients wiht mechanical heart valves.CBC (HEMOGRAM ONLY)2019-10-21 10:38:00 Test Item Value Reference Range Interpretation Comments WHITE BLOOD CELL COUNT 13.3 K/ L 3.5-10.5 H (BEAKER) (test code = 775) RED BLOOD CELL COUNT 3.61 M/ L 4.63-6.08 L (BEAKER) (test code = 761) HEMOGLOBIN (BEAKER) 10.5 GM/DL 13.7-17.5 L (test code = 410) HEMATOCRIT (BEAKER) 32.9 % 40.1-51.0 L (test code = 411) MEAN CORPUSCULAR 91.1 fL 79.0-92.2 VOLUME (BEAKER) (test code = 753) MEAN CORPUSCULAR 29.1 pg 25.7-32.2 HEMOGLOBIN (BEAKER) (test code = 751) MEAN CORPUSCULAR 31.9 GM/DL 32.3-36.5 L HEMOGLOBIN CONC (BEAKER) (test code = 752) RED CELL DISTRIBUTION 15.9 % 11.6-14.4 H WIDTH (BEAKER) (test code = 412) PLATELET COUNT 440 K/CU MM 150-450 Discordant re sults (BEAKER) (test code = compar ed to 756) previous, clini dk correlation required. MEAN PLATELET VOLUME 11.3 fL 9.4-12.4 (BEAKER) (test code = 754) NUCLEATED RED BLOOD 0 /100 WBC 0-0 CELLS (BEAKER) (test code = 413) POCT-GLUCOSE [id number] 07:09:00 Test Item Value Reference Range Interpretation Comments POC-GLUCOSE METER 155 mg/dL 70-110 H : TESTED A T [facility] 6720 ([facility]) (test code = [facility], [facility]) [address]: Parking Inspector/Techni romain ID = [id number] for UE MAXIME, PROSPER POCT-GLUCOSE [id number] 06:41:00 Test Item Value Reference Range Interpretation Comments POC-GLUCOSE METER 66 mg/dL 70-110 L : TESTED A T [facility] 6720 ([facility]) (test code = [facility], [facility]) [address]: Parking Inspector/Techni romain ID = [id number] for UEMA RU, PROSPER POCT-GLUCOSE [id number] 06:13:00 Test Item Value Reference Range Interpretation Comments POC-GLUCOSE METER 66 mg/dL 70-110 L : TESTED A T [facility] 6720 ([facility]) (test code = [facility], [facility]) [address]: Parking Inspector/Techni romain ID = [id number] for UEMA RU, PROSPER POCT-GLUCOSE [id number] 00:20:00 Test Item Value Reference Range Interpretation Comments POC-GLUCOSE METER 75 mg/dL 70-110 : TESTED A T [facility] 6720 ([facility]) (test code = [facility], [facility]) [address]: Parking Inspector/Techni romain ID = [id number] for UEMA RU, PROSPER POCT-GLUCOSE [id number] 17:58:00 Test Item Value Reference Range Interpretation Comments POC-GLUCOSE METER 81 mg/dL 70-110 : TESTED A T [facility] 6720 ([facility]) (test code = [facility], [facility]) [address]: Parking Inspector/Techni romain ID = [id number] for Cb, Noemi POCT-GLUCOSE [id number] 11:56:00 Test Item Value Reference Range Interpretation Comments POC-GLUCOSE METER 87 mg/dL 70-110 : Notified RN/MD: TESTED ([facility]) ([facility] = [facility] [address] [place] [address]) [facility], 7[address]: Parking Inspector/Techni romain ID = [id number] for Simm ons, Anna POCT-GLUCOSE [id number] 07:16:00 Test Item Value Reference Range Interpretation Comments POC-GLUCOSE METER 99 mg/dL 70-110 : TESTED A T [facility] 6720 (BEAKER) (test code = [place], 1538) [address]: Parking Inspector/Techni romain ID = [id number] for PRINCESS JANET MORGAN BASIC METABOLIC [id number] 04:58:00 Test Item Value Reference Range Interpretation Comments SODIUM (BEAKER) 138 meq/L 136-145 (test code = 381) POTASSIUM (BEAKER) 4.1 meq/L 3.5-5.1 (test code = 379) CHLORIDE (BEAKER) 110 meq/L 98-107 H (test code = 382) CO2 (BEAKER) (test 24 meq/L 22-29 code = 355) BLOOD UREA NITROGEN 3 mg/dL 7-21 L (BEAKER) (test code = 354) CREATININE (BEAKER) 0.45 mg/dL 0.57-1.25 L (test code = 358) GLUCOSE RANDOM 86 mg/dL 70-105 (BEAKER) (test code = 652) CALCIUM (BEAKER) 7.3 mg/dL 8.4-10.2 L (test code = 697) EGFR (BEAKER) (test 220 mL/min/1.73 ESTIM ATED GFR IS code = 1092) sq m NOT ACCURATE CREATININE CLEARANCE IN PREDICTING GLOMERULAR FILTRATION RATE . ESTIMATED GFR I S NOT APPLICABLE FOR DIALYSIS PATIEN TS. Parking Inspector ID - JESUS [id number] 04:33:00 Test Item Value Reference Range Interpretation Comments PHOSPHORUS (BEAKER) (test code = 3.3 mg/dL 2.3-4.7 604) Parking Inspector ID - JESUS [id number] 04:33:00 Test Item Value Reference Range Interpretation Comments MAGNESIUM (BEAKER) (test code = 1.8 mg/dL 1.6-2.6 627) Parking Inspector ID - JESUS LCBC (HEMOGRAM ONLY)2019-10-20 04:24:00 Test Item Value Reference Range Interpretation Comments WHITE BLOOD CELL COUNT (BEAKER) 14.8 K/ L 3.5-10.5 H (test code = 775) RED BLOOD CELL COUNT (BEAKER) 3.05 M/ L 4.63-6.08 L (test code = 761) HEMOGLOBIN (BEAKER) (test code = 8.8 GM/DL 13.7-17.5 L 410) HEMATOCRIT (BEAKER) (test code = 27.3 % 40.1-51.0 L 411) MEAN CORPUSCULAR VOLUME (BEAKER) 89.5 fL 79.0-92.2 (test code = 753) MEAN CORPUSCULAR HEMOGLOBIN 28.9 pg 25.7-32.2 (BEAKER) (test code = 751) MEAN CORPUSCULAR HEMOGLOBIN CONC 32.2 GM/DL 32.3-36.5 L (BEAKER) (test code = 752) RED CELL DISTRIBUTION WIDTH 16.3 % 11.6-14.4 H (BEAKER) (test code = 412) PLATELET COUNT (BEAKER) (test 238 K/CU MM 150-450 code = 756) MEAN PLATELET VOLUME (BEAKER) 11.2 fL 9.4-12.4 (test code = 754) NUCLEATED RED BLOOD CELLS 0 /100 WBC 0-0 (BEAKER) (test code = 413) [id number] 04:11:00 Test Item Value Reference Range Interpretation Comments PROTIME (BEAKER) (test code = 19.3 seconds 11.9-14.2 H 759) INR (BEAKER) (test code = 370) 1.68 <=5.90 PARTIAL THROMBOPLASTIN TIME 44.6 seconds 22.5-36.0 H (BEAKER) (test code = 760) Effective 07/03/2018: PT Reference Range ChangeNew: 11.9-14.2 Previous: 11.7- 14.7RECOMMENDED COUMADIN/WARFARIN INR THERAPY RANGESSTANDARD DOSE: 2.0-3.0 Includes: PROPHYLAXIS for venous thrombosis, systemic embolization; TREATMENT for venous thrombosis and/or pulmonary embolus.HIGH RISK: Target INR is2.5-3.5 for patients wiht mechanical heart valves.POCT-GLUCOSE [id number] 00:29:00 Test Item Value Reference Range Interpretation Comments POC-GLUCOSE METER 91 mg/dL 70-110 : TESTED A T [facility] 6720 (BEAKER) (test code = [place], 1538) [address]: Parking Inspector/Techni romain ID = [id number] for BARB BENNETT IGG SUBCLASS-4 [id number] 21:18:00 Test Item Value Reference Range Interpretation Comments Igg 4 (test code = 64.5 mg/dL 4-86 [id number]) ABAD (test code = Performing Lab EZ ABAD) [facility] [address] [place] [address] Parker Herman MD, PhD, VENKATA [facility] [id number] 17:40:00 Test Item Value Reference Range Interpretation Comments POC-GLUCOSE METER 91 mg/dL 70-110 : [facility] (BEAKER) (test code = CHANTE Mohamud [place], 1538) [address]: Parking Inspector/Techni romain ID = [id number] for HINT ONJOSY [id number] 17:22:00 Test Item Value Reference Range Interpretation Comments MAGNESIUM (BEAKER) (test code = 1.7 mg/dL 1.6-2.6 627) Parking Inspector ID - CARLOS [id number] 17:21:00 Test Item Value Reference Range Interpretation Comments PHOSPHORUS (BEAKER) (test code = 3.2 mg/dL 2.3-4.7 604) Parking Inspector ID - CARLOS CBASIC METABOLIC [id number] 17:08:00 Test Item Value Reference Range Interpretation Comments SODIUM (BEAKER) 140 meq/L 136-145 (test code = 381) POTASSIUM (BEAKER) 3.7 meq/L 3.5-5.1 (test code = 379) CHLORIDE (BEAKER) 110 meq/L 98-107 H (test code = 382) CO2 (BEAKER) (test 24 meq/L 22-29 code = 355) BLOOD UREA NITROGEN 4 mg/dL 7-21 L (BEAKER) (test code = 354) CREATININE (BEAKER) 0.49 mg/dL 0.57-1.25 L (test code = 358) GLUCOSE RANDOM 102 mg/dL 70-105 (BEAKER) (test code = 652) CALCIUM (BEAKER) 7.3 mg/dL 8.4-10.2 L (test code = 697) EGFR (BEAKER) (test 200 mL/min/1.73 ESTIM ATED GFR IS code = 1092) sq m NOT ACCURATE CREATININE CLEARANCE IN PREDICTING GLOMERULAR FILTRATION RATE . ESTIMATED GFR I S NOT APPLICABLE FOR DIALYSIS PATIEN TS. Parking Inspector ID - CARLOS CPOCT-GLUCOSE [id number] 12:50:00 Test Item Value Reference Range Interpretation Comments POC-GLUCOSE METER 136 mg/dL 70-110 H : TESTED A T [facility] 6720 (TAI) (test code = CHANTE Mohamud [facility], 1538) [address]: Parking Inspector/Techni romain ID = [id number] for IMANI MARTIN POCT-GLUCOSE [id number] 12:08:00 Test Item Value Reference Range Interpretation Comments POC-GLUCOSE METER 64 mg/dL 70-110 L : Will Rep eat Test: (TAI) (test code = Notifi ed RN/MD: TESTED 1538) AT [facility] [address] [facility], 770 [address]: Parking Inspector/Techni romain ID = [id number] for JOSY WILL RAD, CHEST, 1 VIEW, NON [id number] 08:14:00Reason for exam:->s/p intubation, s/p laparotomy, eval for pulm edema \\T\\ pleural effusionShould this be performed at the bedside?->YesFINAL REPORT RAD, CHEST, 1 VIEW, NON DEPT INDICATION: s/p intubation, s/p laparotomy, eval for pulm edema \\T\\ pleural effusion COMPARISON: Prior day's exam FINDINGS: Portable frontal view of the chest. IMPRESSION: Support Lines: NG tube descends below the diaphragm. Central catheter is unchanged. Linear radiopaque density which may represent an IABP marker is noted 14 cm below the top of the aortic arch. Lungs and pleura: Unchanged airspace and pleural opacities. No pneumoth orax.Heart and mediastinum: Stable contours. Stable surgical changes.Additional findings: None. Signed: Vera Fowler MDReport Verified Date/Time: 10/19/2019 08:14:40 Reading Location: [address] Neuro Reading Room XR chest 1 view portable / [id number] 08:14:00Interface, External Ris In - 10/19/2019 8:16 AM CDTFINAL REPORT RAD, CHEST, 1 VIEW, NON DEPT INDICATION: s/p intubation, s/p laparotomy, eval for pulm edema \\T\\ pleural effusionCOMPARISON: Prior day's exam FINDINGS: Portable frontal view of the chest. IMPRESSION: Support Lines: NG tube descends below the diaphragm. Central catheter is unchanged. Linear radiopaque density which may represent an IABP marker is noted 14 cm below the top of the aortic arch. Lungs and pleura: U nchanged airspace and pleural opacities. No pneumothorax.Heart and mediastinum: Stable contours. Stable surgical changes.Additional findings: None. Signed: Vera Fowlereport Verified Date/Time:10/19/2019 08:14:40 Reading Location: [address] Neuro Reading [facility] [id number] 06:48:00 Test Item Value Reference Range Interpretation Comments POC-GLUCOSE METER 70 mg/dL 70-110 : TESTED A T [facility] 6720 (BEAKER) (test code = CHANTE Mohamud [facility], 1538) [address]: Parking Inspector/Techni romain ID = [id number] for ORLANDO GRAY PT/[id number] 02:18:00 Test Item Value Reference Range Interpretation Comments PROTIME (BEAKER) (test code = 18.4 seconds 11.9-14.2 H 759) INR (BEAKER) (test code = 370) 1.58 <=5.90 PARTIAL THROMBOPLASTIN TIME 39.6 seconds 22.5-36.0 H (BEAKER) (test code = 760) Effective 07/03/2018: PT Reference Range ChangeNew: 11.9-14.2 Previous: 11.7- 14.7RECOMMENDED COUMADIN/WARFARIN INR THERAPY RANGESSTANDARD DOSE: 2.0-3.0 Includes: PROPHYLAXIS for venous thrombosis, systemic embolization; TREATMENT for venous thrombosis and/or pulmonary embolus.HIGH RISK: Target INR is2.5-3.5 for patients wiht mechanical heart valves.[id number] 02:03:00 Test Item Value Reference Range Interpretation Comments PHOSPHORUS (BEAKER) (test code = 1.4 mg/dL 2.3-4.7 LL 604) Parking Inspector ID - SOTERO MBASIC METABOLIC [id number] 02:02:00 Test Item Value Reference Range Interpretation Comments SODIUM (BEAKER) 142 meq/L 136-145 (test code = 381) POTASSIUM (BEAKER) 3.4 meq/L 3.5-5.1 L (test code = 379) CHLORIDE (BEAKER) 115 meq/L 98-107 H (test code = 382) CO2 (BEAKER) (test 19 meq/L 22-29 L code = 355) BLOOD UREA NITROGEN 5 mg/dL 7-21 L (BEAKER) (test code = 354) CREATININE (BEAKER) 0.40 mg/dL 0.57-1.25 L (test code = 358) GLUCOSE RANDOM 90 mg/dL 70-105 (BEAKER) (test code = 652) CALCIUM (BEAKER) 7.3 mg/dL 8.4-10.2 L (test code = 697) EGFR (BEAKER) (test 253 mL/min/1.73 ESTIM ATED GFR IS code = 1092) sq m NOT ACCURATE CREATININE CLEARANCE IN PREDICTING GLOMERULAR FILTRATION RATE . ESTIMATED GFR I S NOT APPLICABLE FOR DIALYSIS PATIEN TS. Parking Inspector ID - SOTERO [id number] 01:59:00 Test Item Value Reference Range Interpretation Comments MAGNESIUM (BEAKER) (test code = 1.9 mg/dL 1.6-2.6 627) Parking Inspector ID - SOTERO MBlood gas, [id number] 01:49:00 Test Item Value Reference Range Interpretation Comments pH, Arterial (test code = 2744-1) 7.45 7.35-7.45 pCO2, Arterial (test code = 30 35- 45 mmHg L 2018-8) pO2, Arterial (test code = 166 80- 90 mmHg H 3-7) O2 Sat, Arterial (test code = 99.2 % 96-97 H 2708-6) HCO3, Arterial (test code = 20 mmol/L 21-29 L 1959-4) Base Excess, Arterial (test code -3.0 mmol/L -2-3 L = 1925-7) Patient Temperature (test code = 37.0 C 8310-5) FIO2 (test code = 1819) 40 % Lab Interpretation (test code = Abnormal 40879-8) [facility] [id number] 01:49:00 Test Item Value Reference Range Interpretation Comments PH ARTERIAL (BEAKER) (test code = 7.45 7.35-7.45 383) PCO2 ARTERIAL (BEAKER) (test code 30 mmHg 35-45 L = 384) PO2 ARTERIAL (BEAKER) (test code 166 mmHg 80-90 H = 385) O2 SATURATION ARTERIAL (BEAKER) 99.2 % 96.0-97.0 H (test code = 386) HCO3 ARTERIAL (BEAKER) (test code 20 mmol/L 21-29 L = 388) BASE EXCESS ARTERIAL (BEAKER) -3.0 mmol/L -2.0-3.0 L (test code = 387) PATIENT TEMPERATURE (BEAKER) 37.0 C (test code = 1818) FIO2 (BEAKER) (test code = 1819) 40.0 % CBC (HEMOGRAM ONLY)2019-10-19 01:41:00 Test Item Value Reference Range Interpretation Comments WHITE BLOOD CELL COUNT (BEAKER) 13.8 K/ L 3.5-10.5 H (test code = 775) RED BLOOD CELL COUNT (BEAKER) 3.22 M/ L 4.63-6.08 L (test code = 761) HEMOGLOBIN (BEAKER) (test code = 9.5 GM/DL 13.7-17.5 L 410) HEMATOCRIT (BEAKER) (test code = 27.7 % 40.1-51.0 L 411) MEAN CORPUSCULAR VOLUME (BEAKER) 86.0 fL 79.0-92.2 (test code = 753) MEAN CORPUSCULAR HEMOGLOBIN 29.5 pg 25.7-32.2 (BEAKER) (test code = 751) MEAN CORPUSCULAR HEMOGLOBIN CONC 34.3 GM/DL 32.3-36.5 (BEAKER) (test code = 752) RED CELL DISTRIBUTION WIDTH 15.5 % 11.6-14.4 H (BEAKER) (test code = 412) PLATELET COUNT (BEAKER) (test 134 K/CU MM 150-450 L code = 756) MEAN PLATELET VOLUME (BEAKER) 12.5 fL 9.4-12.4 H (test code = 754) NUCLEATED RED BLOOD CELLS 0 /100 WBC 0-0 (BEAKER) (test code = 413) POCT-GLUCOSE [id number] 00:32:00 Test Item Value Reference Range Interpretation Comments POC-GLUCOSE METER 97 mg/dL 70-110 : TESTED A T [facility] 6720 (BEAKER) (test code = [place], 1538) [address]: Parking Inspector/Techni romain ID = [id number] for ORLANDO GRAY [id number] 23:55:00 Test Item Value Reference Range Interpretation Comments CROSSMATCH (test code = 2264) COMPATIBLE Unit ABO (test code = A Pos 3211520) UNIT NUMBER (test code = [id number] 934-0) Status (test code = 6413984) TX_TIMEINCHART Blood Bank Product (test code RED BLOOD CELLS = 2263) PRODUCT CODE (test code = X7074T13 933-2) [facility] (HEMOGRAM ONLY)2019-10-18 20:53:00 Test Item Value Reference Range Interpretation Comments WHITE BLOOD CELL COUNT (BEAKER) 12.8 K/ L 3.5-10.5 H (test code = 775) RED BLOOD CELL COUNT (BEAKER) 3.09 M/ L 4.63-6.08 L (test code = 761) HEMOGLOBIN (BEAKER) (test code = 9.0 GM/DL 13.7-17.5 L 410) HEMATOCRIT (BEAKER) (test code = 26.5 % 40.1-51.0 L 411) MEAN CORPUSCULAR VOLUME (BEAKER) 85.8 fL 79.0-92.2 (test code = 753) MEAN CORPUSCULAR HEMOGLOBIN 29.1 pg 25.7-32.2 (BEAKER) (test code = 751) MEAN CORPUSCULAR HEMOGLOBIN CONC 34.0 GM/DL 32.3-36.5 (BEAKER) (test code = 752) RED CELL DISTRIBUTION WIDTH 15.8 % 11.6-14.4 H (BEAKER) (test code = 412) PLATELET COUNT (BEAKER) (test 123 K/CU MM 150-450 L code = 756) MEAN PLATELET VOLUME (BEAKER) 12.5 fL 9.4-12.4 H (test code = 754) NUCLEATED RED BLOOD CELLS 0 /100 WBC 0-0 (BEAKER) (test code = 413) POCT-GLUCOSE [id number] 17:27:00 Test Item Value Reference Range Interpretation Comments POC-GLUCOSE METER 99 mg/dL 70-110 : TESTED A T [facility] 6720 (BEAKER) (test code = CHANTE Mohamud [facility], 153) [address]: Parking Inspector/Techni romain ID = [id number] for JOSY WILL CBC (HEMOGRAM ONLY)2019-10-18 12:31:00 Test Item Value Reference Range Interpretation Comments WHITE BLOOD CELL COUNT (BEAKER) 11.2 K/ L 3.5-10.5 H (test code = 775) RED BLOOD CELL COUNT (BEAKER) 3.36 M/ L 4.63-6.08 L (test code = 761) HEMOGLOBIN (BEAKER) (test code = 9.8 GM/DL 13.7-17.5 L 410) HEMATOCRIT (BEAKER) (test code = 28.8 % 40.1-51.0 L 411) MEAN CORPUSCULAR VOLUME (BEAKER) 85.7 fL 79.0-92.2 (test code = 753) MEAN CORPUSCULAR HEMOGLOBIN 29.2 pg 25.7-32.2 (BEAKER) (test code = 751) MEAN CORPUSCULAR HEMOGLOBIN CONC 34.0 GM/DL 32.3-36.5 (BEAKER) (test code = 752) RED CELL DISTRIBUTION WIDTH 15.3 % 11.6-14.4 H (BEAKER) (test code = 412) PLATELET COUNT (BEAKER) (test 119 K/CU MM 150-450 L code = 756) MEAN PLATELET VOLUME (BEAKER) 12.9 fL 9.4-12.4 H (test code = 754) NUCLEATED RED BLOOD CELLS 0 /100 WBC 0-0 (BEAKER) (test code = 413) POCT-GLUCOSE [id number] 12:12:00 Test Item Value Reference Range Interpretation Comments POC-GLUCOSE METER 111 mg/dL 70-110 H : TESTED A T [facility] 6720 (BEAKER) (test code = CHANTE Mohamud [facility], 153) [address]: Parking Inspector/Techni romain ID = [id number] for JOSY JEFF BLOOD GAS, [id number] 05:05:00 Test Item Value Reference Range Interpretation Comments PH ARTERIAL (BEAKER) (test code = 7.32 7.35-7.45 L 383) PCO2 ARTERIAL (BEAKER) (test code 36 mmHg 35-45 = 384) PO2 ARTERIAL (BEAKER) (test code 214 mmHg 80-90 H = 385) O2 SATURATION ARTERIAL (BEAKER) 99.3 % 96.0-97.0 H (test code = 386) HCO3 ARTERIAL (BEAKER) (test code 18 mmol/L 21-29 L = 388) BASE EXCESS ARTERIAL (BEAKER) -7.3 mmol/L -2.0-3.0 L (test code = 387) PATIENT TEMPERATURE (BEAKER) 38.0 C (test code = 1818) FIO2 (BEAKER) (test code = 1819) 40.0 % BASIC METABOLIC [id number] 04:56:00 Test Item Value Reference Range Interpretation Comments SODIUM (BEAKER) 141 meq/L 136-145 (test code = 381) POTASSIUM (BEAKER) 4.9 meq/L 3.5-5.1 (test code = 379) CHLORIDE (BEAKER) 116 meq/L 98-107 H (test code = 382) CO2 (BEAKER) (test 18 meq/L 22-29 L code = 355) BLOOD UREA NITROGEN 6 mg/dL 7-21 L (BEAKER) (test code = 354) CREATININE (BEAKER) 0.71 mg/dL 0.57-1.25 (test code = 358) GLUCOSE RANDOM 156 mg/dL 70-105 H (BEAKER) (test code = 652) CALCIUM (BEAKER) 7.4 mg/dL 8.4-10.2 L (test code = 697) EGFR (BEAKER) (test 130 mL/min/1.73 ESTIM ATED GFR IS code = 1092) sq m NOT ACCURATE CREATININE CLEARANCE IN PREDICTING GLOMERULAR FILTRATION RATE . ESTIMATED GFR I S NOT APPLICABLE FOR DIALYSIS PATIEN TS. Parking Inspector ID - SOTERO [id number] 04:55:00 Test Item Value Reference Range Interpretation Comments PHOSPHORUS (BEAKER) (test code = 3.8 mg/dL 2.3-4.7 604) Parking Inspector ID - SOTERO [id number] 04:55:00 Test Item Value Reference Range Interpretation Comments MAGNESIUM (BEAKER) (test code = 1.5 mg/dL 1.6-2.6 L 627) Parking Inspector ID - SOTERO MPT/[id number] 04:44:00 Test Item Value Reference Range Interpretation Comments PROTIME (BEAKER) (test code = 18.9 seconds 11.9-14.2 H 759) INR (BEAKER) (test code = 370) 1.63 <=5.90 PARTIAL THROMBOPLASTIN TIME 38.2 seconds 22.5-36.0 H (BEAKER) (test code = 760) Effective 07/03/2018: PT Reference Range ChangeNew: 11.9-14.2 Previous: 11.7- 14.7RECOMMENDED COUMADIN/WARFARIN INR THERAPY RANGESSTANDARD DOSE: 2.0-3.0 Includes: PROPHYLAXIS for venous thrombosis, systemic embolization; TREATMENT for venous thrombosis and/or pulmonary embolus.HIGH RISK: Target INR is2.5-3.5 for patients wiht mechanical heart valves.CBC (HEMOGRAM ONLY)2019-10-18 04:38:00 Test Item Value Reference Range Interpretation Comments WHITE BLOOD CELL COUNT (BEAKER) 15.4 K/ L 3.5-10.5 H (test code = 775) RED BLOOD CELL COUNT (BEAKER) 4.13 M/ L 4.63-6.08 L (test code = 761) HEMOGLOBIN (BEAKER) (test code = 12.0 GM/DL 13.7-17.5 L 410) HEMATOCRIT (BEAKER) (test code = 35.4 % 40.1-51.0 L 411) MEAN CORPUSCULAR VOLUME (BEAKER) 85.7 fL 79.0-92.2 (test code = 753) MEAN CORPUSCULAR HEMOGLOBIN 29.1 pg 25.7-32.2 (BEAKER) (test code = 751) MEAN CORPUSCULAR HEMOGLOBIN CONC 33.9 GM/DL 32.3-36.5 (BEAKER) (test code = 752) RED CELL DISTRIBUTION WIDTH 15.0 % 11.6-14.4 H (BEAKER) (test code = 412) PLATELET COUNT (BEAKER) (test 119 K/CU MM 150-450 L code = 756) MEAN PLATELET VOLUME (BEAKER) 12.7 fL 9.4-12.4 H (test code = 754) NUCLEATED RED BLOOD CELLS 0 /100 WBC 0-0 (BEAKER) (test code = 413) RAD, CHEST, 1 VIEW, NON [id number] 03:59:00Reason for exam:->s/p intubation, s/p laparotomyShould this be performed at the bedside?->YesFINAL REPORT Chest one view. Clinical history: s/p intubation, s/p laparotomy Comparison: Chest radiograph 07/28/2018 Technique: A single frontal view of the chest was obtained.Findings:There is a left subclavian central venous catheter with tip in the proximal right atrium.Endotracheal and feeding tubes are in satisfactory positions. The cardiomediastinal contours are stable. There is mild bibasilar subsegmental and discoid atelectasis. There is a small lucency in the left apex suspicious for a pneumothorax. There is no pleural effusion. There are tubular structures overlying both upper quadrants, which may represent drainage catheters. Signed: Meghan Atkins [facility] Verified Date/Time: 10/18/2019 03:59:10 BLOOD GAS, [id number] 01:36:00 Test Item Value Reference Range Interpretation Comments PH ARTERIAL (BEAKER) (test code = 7.38 7.35-7.45 383) PCO2 ARTERIAL (BEAKER) (test code 25 mmHg 35-45 L = 384) PO2 ARTERIAL (BEAKER) (test code 208 mmHg 80-90 H = 385) O2 SATURATION ARTERIAL (BEAKER) 99.4 % 96.0-97.0 H (test code = 386) HCO3 ARTERIAL (BEAKER) (test code 14 mmol/L 21-29 L = 388) BASE EXCESS ARTERIAL (BEAKER) -8.8 mmol/L -2.0-3.0 L (test code = 387) PATIENT TEMPERATURE (BEAKER) 37.0 C (test code = 1818) FIO2 (BEAKER) (test code = 1819) 40.0 % POCT-GLUCOSE [id number] 00:54:00 Test Item Value Reference Range Interpretation Comments POC-GLUCOSE METER 152 mg/dL 70-110 H : TESTED A T [facility] 6720 (BEAKER) (test code = CHAN[place], 1538) [id number]: Parking Inspector/Techni romain ID = [id number] for Ig [place]asta chadwick BASIC METABOLIC [id number] 23:38:00 Test Item Value Reference Range Interpretation Comments SODIUM (BEAKER) 140 meq/L 136-145 (test code = 381) POTASSIUM (BEAKER) 4.7 meq/L 3.5-5.1 Specimen slightly (test code = 379) hemolyzed CHLORIDE (BEAKER) 117 meq/L 98-107 H (test code = 382) CO2 (BEAKER) (test 15 meq/L 22-29 L code = 355) BLOOD UREA NITROGEN 3 mg/dL 7-21 L (BEAKER) (test code = 354) CREATININE (BEAKER) 0.57 mg/dL 0.57-1.25 Specimen slightly (test code = 358) hemolyzed GLUCOSE RANDOM 174 mg/dL 70-105 H (BEAKER) (test code = 652) CALCIUM (BEAKER) 7.7 mg/dL 8.4-10.2 L (test code = 697) EGFR (BEAKER) (test 168 mL/min/1.73 ESTIM ATED GFR IS code = 1092) sq m NOT ACCURATE CREATININE CLEARANCE IN PREDICTING GLOMERULAR FILTRATION RATE . ESTIMATED GFR I S NOT APPLICABLE FOR DIALYSIS PATIEN TS. Parking Inspector ID - [id number] 22:52:00 Test Item Value Reference Range Interpretation Comments MAGNESIUM (BEAKER) 1.7 mg/dL 1.6-2.6 Specimen slightly (test code = 627) hemolyzed Parking Inspector ID - [id number] 22:52:00 Test Item Value Reference Range Interpretation Comments PHOSPHORUS (BEAKER) 4.3 mg/dL 2.3-4.7 Specimen slightly (test code = 604) hemolyzed Parking Inspector ID - [id number] 22:51:00 Test Item Value Reference Range Interpretation Comments PROTIME (BEAKER) (test code = 19.0 seconds 11.9-14.2 H 759) INR (BEAKER) (test code = 370) 1.64 <=5.90 PARTIAL THROMBOPLASTIN TIME 33.9 seconds 22.5-36.0 (BEAKER) (test code = 760) Effective 07/03/2018: PT Reference Range ChangeNew: 11.9-14.2 Previous: 11.7- 14.7RECOMMENDED COUMADIN/WARFARIN INR THERAPY RANGESSTANDARD DOSE: 2.0-3.0 Includes: PROPHYLAXIS for venous thrombosis, systemic embolization; TREATMENT for venous thrombosis and/or pulmonary embolus.HIGH RISK: Target INR is2.5-3.5 for patients wiht mechanical heart valves.CBC (HEMOGRAM ONLY)2019-10-17 22:34:00 Test Item Value Reference Range Interpretation Comments WHITE BLOOD CELL COUNT (BEAKER) 17.8 K/ L 3.5-10.5 H (test code = 775) RED BLOOD CELL COUNT (BEAKER) 5.23 M/ L 4.63-6.08 (test code = 761) HEMOGLOBIN (BEAKER) (test code = 14.9 GM/DL 13.7-17.5 410) HEMATOCRIT (BEAKER) (test code = 45.3 % 40.1-51.0 411) MEAN CORPUSCULAR VOLUME (BEAKER) 86.6 fL 79.0-92.2 (test code = 753) MEAN CORPUSCULAR HEMOGLOBIN 28.5 pg 25.7-32.2 (BEAKER) (test code = 751) MEAN CORPUSCULAR HEMOGLOBIN CONC 32.9 GM/DL 32.3-36.5 (BEAKER) (test code = 752) RED CELL DISTRIBUTION WIDTH 14.4 % 11.6-14.4 (BEAKER) (test code = 412) PLATELET COUNT (BEAKER) (test 112 K/CU MM 150-450 L code = 756) MEAN PLATELET VOLUME (BEAKER) 11.6 fL 9.4-12.4 (test code = 754) NUCLEATED RED BLOOD CELLS 0 /100 WBC 0-0 (BEAKER) (test code = 413) BLOOD GAS, [id number] 22:34:00 Test Item Value Reference Range Interpretation Comments PH ARTERIAL (BEAKER) (test code 7.30 7.35-7.45 L = 383) PCO2 ARTERIAL (BEAKER) (test 30 mmHg 35-45 L code = 384) PO2 ARTERIAL (BEAKER) (test code 235 mmHg 80-90 H = 385) O2 SATURATION ARTERIAL (BEAKER) 99.5 % 96.0-97.0 H (test code = 386) HCO3 ARTERIAL (BEAKER) (test 14 mmol/L 21-29 L code = 388) BASE EXCESS ARTERIAL (BEAKER) -10.7 mmol/L -2.0-3.0 L (test code = 387) PATIENT TEMPERATURE (BEAKER) 36.5 C (test code = 1818) FIO2 (BEAKER) (test code = 1819) 40.0 % Prepare [id number] 21:19:00 Test Item Value Reference Range Interpretation Comments Unit ABO (test code = A Pos 5962866) UNIT NUMBER (test code = [id number] 934-0) Status (test code = RETURNED FROM ISSUE 6366120) Blood Bank Product (test FFP code = 2263) PRODUCT CODE (test code = [id number] 933-2) [facility] [id number] 21:19:00 Test Item Value Reference Range Interpretation Comments Unit ABO (test code = O Pos 6441039) UNIT NUMBER (test code = [id number] 934-0) Status (test code = RETURNED FROM ISSUE 2573690) Blood Bank Product (test PLATELETS code = 2263) PRODUCT CODE (test code = [id number] 933-2) [facility] 20:02:00 Test Item Value Reference Range Interpretation Comments PTT (test code = 75195-6) 38.7 22.5- 36.0 seconds H Lab Interpretation (test code = Abnormal 27719-7) [facility] 20:02:00 Test Item Value Reference Range Interpretation Comments PARTIAL THROMBOPLASTIN TIME 38.7 seconds 22.5-36.0 H (BEAKER) (test code = 760) Prothrombin time/[id number] 20:01:00 Test Item Value Reference Range Interpretation Comments Protime (test code = 21.8 11.9- 14.2 H 5902-2) seconds INR (test code = 1.96 <=5.90 6301-6) ABAD (test code = ABAD) Effective 07/03/2018: PT Reference Range ChangeNew: 11.9-14.2 Previous: 11.7-14.7 RECOMMENDED COUMADIN/WARFARIN INR THERAPY RANGESSTANDARD DOSE: 2.0-3.0 Includes: PROPHYLAXIS for venous thrombosis, systemic embolization; TREATMENT for venous thrombosis and/or pulmonary embolus.HIGH RISK: Target INR is 2.5-3.5 for patients wiht mechanical heart valves. Lab Interpretation Abnormal (test code = 10771-3) [facility] CenterPROTHROMBIN TIME/[id number] 20:01:00 Test Item Value Reference Range Interpretation Comments PROTIME (BEAKER) (test code = 21.8 seconds 11.9-14.2 H 759) INR (BEAKER) (test code = 370) 1.96 <=5.90 Effective 07/03/2018: PT Reference Range ChangeNew: 11.9-14.2 Previous: 11.7- 14.7RECOMMENDED COUMADIN/WARFARIN INR THERAPY RANGESSTANDARD DOSE: 2.0-3.0 Includes: PROPHYLAXIS for venous thrombosis, systemic embolization; TREATMENT for venous thrombosis and/or pulmonary embolus.HIGH RISK: Target INR is2.5-3.5 for patients wiht mechanical heart valves.Calcium, [id number] 19:56:00 Test Item Value Reference Range Interpretation Comments Calcium, Ion (test code = 1994-3) 1.65 mmol/L 1.12-1.27 pH, Blood (test code = 09130-3) 7.25 Lab Interpretation (test code = Abnormal 86980-0) [facility] CenterGlucose-Stat [id number] 19:56:00 Test Item Value Reference Range Interpretation Comments Glucose (test code = 2345-7) 182 mg/dL 70-110 H Lab Interpretation (test code = Abnormal 09089-4) [facility] CenterCALCIUM, [id number] 19:56:00 Test Item Value Reference Range Interpretation Comments CALCIUM IONIZED (BEAKER) (test 1.65 mmol/L 1.12-1.27 HH code = 698) PH, BLOOD (BEAKER) (test code = 7.25 1810) BLOOD GAS, [id number] 19:56:00 Test Item Value Reference Range Interpretation Comments PH ARTERIAL (BEAKER) (test code 7.25 7.35-7.45 L = 383) PCO2 ARTERIAL (BEAKER) (test 37 mmHg 35-45 code = 384) PO2 ARTERIAL (BEAKER) (test code 263 mmHg 80-90 H = 385) O2 SATURATION ARTERIAL (BEAKER) 99.5 % 96.0-97.0 H (test code = 386) HCO3 ARTERIAL (BEAKER) (test 16 mmol/L 21-29 L code = 388) BASE EXCESS ARTERIAL (BEAKER) -11.0 mmol/L -2.0-3.0 L (test code = 387) PATIENT TEMPERATURE (BEAKER) 36.5 C (test code = 1818) FIO2 (BEAKER) (test code = 1819) 50.0 % GLUCOSE-STAT [id number] 19:56:00 Test Item Value Reference Range Interpretation Comments GLUCOSE RANDOM (BEAKER) (test code 182 mg/dL 70-110 H = 652) HGB/HCT (H&H)-Stat [id number] 19:55:00 Test Item Value Reference Range Interpretation Comments Hemoglobin (test code = 786-4) 13.9 g/dL 13-16.8 Hematocrit (test code = 4544-3) 41.0 % 40-50 Lab Interpretation (test code = Normal 65352-1) [facility] [id number] 19:55:00 Test Item Value Reference Range Interpretation Comments Sodium (test code = 2951-2) 135 meq/L 136-145 L Lab Interpretation (test code = Abnormal 58078-9) [facility] CenterPotassium-Stat [id number] 19:55:00 Test Item Value Reference Range Interpretation Comments Potassium (test code = 2823-3) 4.5 meq/L 3.6-5.5 Lab Interpretation (test code = Normal 04877-6) [facility] Center[facility] NA-STAT [id number] 19:55:00 Test Item Value Reference Range Interpretation Comments SODIUM (BEAKER) (test code = 381) 135 meq/L 136-145 L POTASSIUM-STAT [id number] 19:55:00 Test Item Value Reference Range Interpretation Comments POTASSIUM (BEAKER) (test code = 4.5 meq/L 3.6-5.5 379) HGB/HCT (H&H) - STAT [id number] 19:55:00 Test Item Value Reference Range Interpretation Comments HEMOGLOBIN (BEAKER) (test code = 13.9 g/dL 13.0-16.8 410) HEMATOCRIT (BEAKER) (test code = 41.0 % 40.0-50.0 411) CALCIUM, [id number] 19:10:00 Test Item Value Reference Range Interpretation Comments CALCIUM IONIZED (BEAKER) (test 1.00 mmol/L 1.12-1.27 L code = 698) PH, BLOOD (BEAKER) (test code = 7.35 1810) BLOOD GAS, [id number] 19:09:00 Test Item Value Reference Range Interpretation Comments PH ARTERIAL (BEAKER) (test code = 7.35 7.35-7.45 383) PCO2 ARTERIAL (BEAKER) (test code 31 mmHg 35-45 L = 384) PO2 ARTERIAL (BEAKER) (test code 259 mmHg 80-90 H = 385) O2 SATURATION ARTERIAL (BEAKER) 99.6 % 96.0-97.0 H (test code = 386) HCO3 ARTERIAL (BEAKER) (test code 17 mmol/L 21-29 L = 388) BASE EXCESS ARTERIAL (BEAKER) -7.8 mmol/L -2.0-3.0 L (test code = 387) PATIENT TEMPERATURE (BEAKER) 36.0 C (test code = 1818) FIO2 (BEAKER) (test code = 1819) 50.0 % GLUCOSE-STAT [id number] 19:09:00 Test Item Value Reference Range Interpretation Comments GLUCOSE RANDOM (BEAKER) (test code 146 mg/dL 70-110 H = 652) HGB/HCT (H&H) - STAT [id number] 19:09:00 Test Item Value Reference Range Interpretation Comments HEMOGLOBIN (BEAKER) (test code = 12.0 g/dL 13.0-16.8 L 410) HEMATOCRIT (BEAKER) (test code = 35.0 % 40.0-50.0 L 411) SODIUM NA-STAT [id number] 19:08:00 Test Item Value Reference Range Interpretation Comments SODIUM (BEAKER) (test code = 381) 136 meq/L 136-145 POTASSIUM-STAT [id number] 19:08:00 Test Item Value Reference Range Interpretation Comments POTASSIUM (BEAKER) (test code = 3.8 meq/L 3.6-5.5 379) Type and screen, [id number] 18:17:00 Test Item Value Reference Range Interpretation Comments ABO/RH AUTOMATED (BEAKER) (test A POSITIVE code = 2260) Ab Scrn (test code = 890-4) NEGATIVE [facility] [id number] 17:33:00 Test Item Value Reference Range Interpretation Comments POTASSIUM (BEAKER) (test code = 2.6 meq/L 3.6-5.5 LL 379) HGB/HCT (H&H) - STAT [id number] 17:25:00 Test Item Value Reference Range Interpretation Comments HEMOGLOBIN (BEAKER) (test code = 9.9 g/dL 13.0-16.8 L 410) HEMATOCRIT (BEAKER) (test code = 29.0 % 40.0-50.0 L 411) BLOOD GAS, [id number] 17:24:00 Test Item Value Reference Range Interpretation Comments PH ARTERIAL (BEAKER) (test code = 7.45 7.35-7.45 383) PCO2 ARTERIAL (BEAKER) (test code 34 mmHg 35-45 L = 384) PO2 ARTERIAL (BEAKER) (test code 346 mmHg 80-90 H = 385) O2 SATURATION ARTERIAL (BEAKER) 99.8 % 96.0-97.0 H (test code = 386) HCO3 ARTERIAL (BEAKER) (test code 23 mmol/L 21-29 = 388) BASE EXCESS ARTERIAL (BEAKER) -0.4 mmol/L -2.0-3.0 (test code = 387) PATIENT TEMPERATURE (BEAKER) 38.4 C (test code = 1818) FIO2 (BEAKER) (test code = 1819) 100.0 % GLUCOSE-STAT [id number] 17:24:00 Test Item Value Reference Range Interpretation Comments GLUCOSE RANDOM (BEAKER) (test code 130 mg/dL 70-110 H = 652) SODIUM NA-STAT [id number] 17:23:00 Test Item Value Reference Range Interpretation Comments SODIUM (BEAKER) (test code = 381) 136 meq/L 136-145 FL, FLUORO, NON-SPECIFIC, UP TO 1 [id number] 17:22:16Reason for exam:->cholangiogramFluoroscopic unit utilized for a procedure performed in the OR. No interpretation was requested. Refer to the operative report for findings. Refer to PACS for patient radiation dose information.FL fluoro non- specific up to 1 [id number] 17:14:00Interface, External Ris In - 10/21/2019 2:43 PM CDTFluoroscopic unit utilized for a procedure performed in the OR. No interpretation was requested. Refer to the operative report for findings. Referto PACS for patient radiation dose information.[facility] CenterBLOOD GAS, [id number] 15:40:00 Test Item Value Reference Range Interpretation Comments PH ARTERIAL (BEAKER) (test code = 7.58 7.35-7.45 H 383) PCO2 ARTERIAL (BEAKER) (test code 27 mmHg 35-45 L = 384) PO2 ARTERIAL (BEAKER) (test code = 503 mmHg 80-90 H 385) O2 SATURATION ARTERIAL (BEAKER) 99.9 % 96.0-97.0 H (test code = 386) HCO3 ARTERIAL (BEAKER) (test code 25 mmol/L 21-29 = 388) BASE EXCESS ARTERIAL (BEAKER) 2.9 mmol/L -2.0-3.0 (test code = 387) PATIENT TEMPERATURE (BEAKER) (test 34.9 C code = 1818) FIO2 (BEAKER) (test code = 1819) 100.0 % POTASSIUM-STAT [id number] 15:40:00 Test Item Value Reference Range Interpretation Comments POTASSIUM (BEAKER) (test code = 3.1 meq/L 3.6-5.5 L 379) HGB/HCT (H&H) - STAT [id number] 15:40:00 Test Item Value Reference Range Interpretation Comments HEMOGLOBIN (BEAKER) (test code = 12.4 g/dL 13.0-16.8 L 410) HEMATOCRIT (BEAKER) (test code = 36.0 % 40.0-50.0 L 411) GLUCOSE-STAT [id number] 15:38:00 Test Item Value Reference Range Interpretation Comments GLUCOSE RANDOM (BEAKER) (test code 108 mg/dL 70-110 = 652) SODIUM NA-STAT [id number] 15:38:00 Test Item Value Reference Range Interpretation Comments SODIUM (BEAKER) (test code = 381) 139 meq/L 136-145 POCT-GLUCOSE [id number] 06:35:00 Test Item Value Reference Range Interpretation Comments POC-GLUCOSE METER 121 mg/dL 70-110 H : TESTED A T [facility] 6720 (BEAKER) (test code = CHANTE Mohamud [facility], 1538) [address]: Parking Inspector/Techni romain ID = [id number] for CATINA ALTMAN POCT-GLUCOSE [id number] 01:25:00 Test Item Value Reference Range Interpretation Comments POC-GLUCOSE METER 88 mg/dL 70-110 : TESTED A T [facility] 6720 (BEAKER) (test code = CHANTE Mohamud [facility], 1538) [address]: Parking Inspector/Techni romain ID = [id number] for CATINA VEE CT, [id number] 13:25:003-phase: venous, arterial, and non-conUnlisted Reason for Exam - Click Yes and Enter Reason Below->YesUnlisted Reason for Exam->concern for splenic vein thrombosisPlease specify:->Multiphase Liver FINAL REPORT TECHNIQUE: CT of the abdomen and pelvis WITHOUT and WITH intravenous contrast and WITHOUT oral contrast. Dose modulation, iterative reconstruction, and/or weight-based adjustment of the mA/kV was utilized to reduce the radiation dose to as low as reasonably achievable. INDICATION: Epigastric pain, concern for splenic vein thrombosis.. COMPARISON: 07/13/2018, noncontrast CT, 06/05/2018 FINDINGS: LOWER THORAX: Small bilateral pleural effusions with lower lobe atelectasis.. HEPATOBILIARY: No focal hepatic lesions. Gallbladder is unremarkable. There is mild intra and e xtra hepatic biliary duct dilation with narrowing of the common bile duct in the region of the pancreatic head...SPLEEN: Spleen is mildly enlarged measuring 14 cm in craniocaudal dimension..PANCREAS: The visualized pancreas demonstrates normal enhancement. There is redemonstration of a hypodense rim surrounding the pancreatic body and tail which are decreased since the previous exam in 2019. (See axial image 37). Cyst gastrostomy stent has been removed. ADRENALS: No adrenal nodules.KIDNEYS/URETERS: No hydronephrosis, stones, or solid mass lesions.PELVIC ORGANS/BLADDER: Unremarkable. PERITONEUM/RETROPERITONEUM: No free air or fluid.LYMPH NODES: No lymphadenopathy.VESSELS: Main portal vein and intrahepatic portal vein branches are patent. Main portal vein measures 1.4 cm in diameter. There is severe narrowing/occlusion of the portal vein near the confluence. Splenic vein is not visualized. There is severe narrowing/occlusion of the superior mesenteric vein at the confluence. Distal superior mesenteric vein branches are patent. There are numerous large perigastric and upper abdominal collaterals.. GI TRACT: There is a metallic clip in the gastric fundus. No distention or wall thickening. Appendix is normal. BONES AND SOFT TISSUES: Unremarkable. 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 This has improved since previous exam in July 2018. 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 Splenomegaly. Mild intra and extrahepatic biliary ductal dilation. Findings may related to distal common bile duct stricture related to prior pancreatitis. Small volume ascites and small bilateral pleural effusions. Signed: Jessenia Newman MDReport Verified Date/Time: 10/16/2019 13:25:44 Reading Location: [address] Body Reading Room CT abdomen/pelvis without & with IV [id number] 13:25:00Interface, External Ris In - 10/16/2019 1:27 PM CDTFINAL REPORT TECHNIQUE: CT of the abdomen and pelvis WITHOUT and WITH intravenous contrast and WITHOUT oral contrast. Dose modulation, iterative reconstruction, and/or weight-based adjustment of the mA/kV was utilized to reducethe radiation dose to as low as reasonably achievable. INDICATION: Epigastric pain, concern for splenic vein thrombosis.. COMPARISON: 07/13/2018, noncontrast CT, 06/05/2018 FINDINGS: LOWER THORAX: Small bilateral pleural effusions with lower lobe atelectasis.. HEPATOBILIARY: No focal hepatic lesions. Gallbladder is unremarkable. There is mild intra and extra hepatic biliary duct dilation with narrowing of the common bile duct in the region of the pancreatic head...SPLEEN: Spleen is mildly enlarged measuring 14 cm in craniocaudal dimension..PANCREAS: The visualized pancreas demonstrates normal enhancement. There is redemonstration of a hypodense rim surrounding the pancreatic body and tail which aredecreased since the previous exam in 2019. (See axial image 37). Cyst gastrostomy stent has been removed. ADRENALS: No adrenal nodules.KIDNEYS/URETERS: No hydronephrosis, stones, or solid mass lesions.PELVIC ORGANS/BLADDER: Unremarkable. PERITONEUM/RETROPERITONEUM: No free air or fluid.LYMPH NODES: Nolymphadenopathy.VESSELS: Main portal vein and intrahepatic portal vein branches are patent. Main portal vein measures 1.4 cm in diameter. There is severe narrowing/occlusion of the portal vein near the confluence. Splenic vein is not visualized. There is severe narrowing/occlusion of the superior mesenteric vein at the confluence. Distal superior mesenteric vein branches are patent. There are numerous large perigastric and upper abdominal collaterals.. GI TRACT: There is a metallic clip in the gastric fundus. No distention or wall thickening. Appendix is normal. BONES AND SOFT TISSUES: Unremarkable. 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 This has improved since previous exam in July 2018. Chronic occlusion of the splenic vein with severe narrowing/stenosisof the main portal vein and superior mesenteric vein at the portal vein confluence. 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 Splenomegaly. Mild intra and extrahepatic biliary ductal dilation. Findings may related to distal common bile duct stricture related to prior pancreatitis. Small volume ascites and small bilateral pleural effusions. Signed: Jessenia Newman MDReport Verified Date/Time: 10/16/2019 13:25:44 Reading Location: [facility] Body Reading Room [facility] POCT-GLUCOSE [id number] 12:59:00 Test Item Value Reference Range Interpretation Comments POC-GLUCOSE METER 148 mg/dL 70-110 H : TESTED A T [facility] 6720 (BEAKER) (test code = CHANTE Mohamud [facility], 1538) [address]: Parking Inspector/Techni romain ID = [id number] for KO LLEADE, RITCHEL POCT-GLUCOSE [id number] 12:26:00 Test Item Value Reference Range Interpretation Comments POC-GLUCOSE METER 50 mg/dL 70-110 L : TESTED A T [facility] 6720 (BEAKER) (test code = [place], 1538) [address]: Parking Inspector/Techni romain ID = [id number] for PRATIK ARMENTA Urinalysis w/[id number] 09:32:00 Test Item Value Reference Range Interpretation Comments Color, UA (test code = Yellow 5778-6) Clarity, UA (test code = Hazy 5767-9) Specific [place], UA 1.010 1.001-1.035 (test code = 5811-5) pH, UA (test code = 6.5 5.0-8.0 5803-2) Protein, UA (test code = 20 mg/dL Negative A 42795-6) Glucose, UA (test code = Negative Negative 365) Ketones, UA (test code = 100 mg/dL Negative A 2514-8) Bilirubin, UA (test code Negative Negative = 11930-3) Blood, UA (test code = Negative Negative 36193-6) Nitrite, UA (test code = Negative Negative 5802-4) Leukocytes, UA (test code Negative Negative = 5799-2) Urobilinogen, UA (test 0.2 mg/dL 0.2-1 code = 56549-8) RBC, UA (test code = 0 /HPF 01019-6) WBC, UA (test code = 0 /HPF 5821-4) Bacteria, UA (test code = Occasional 99527-4) Mucus (test code = Occasional 8247-9) Squam Epithel, UA (test <1 /HPF code = 73422-8) Yeast (test code = Few 73619-0) Specimen Source (test code = 2795) ABAD (test code = ABAD) Parking Inspector ID - [auto]Parking Inspector ID - moe Lab Interpretation (test Abnormal code = 32131-5) [facility] CenterURINALYSIS W/ [id number] 09:32:00 Test Item Value Reference Range Interpretation Comments COLOR (BEAKER) (test code = 470) Yellow CLARITY (BEAKER) (test code = 469) Hazy SPECIFIC GRAVITY UA (BEAKER) (test 1.010 1.001-1.035 code = 468) PH UA (BEAKER) (test code = 467) 6.5 5.0-8.0 PROTEIN UA (BEAKER) (test code = 20 mg/dL Negative A 464) GLUCOSE UA (BEAKER) (test code = Negative Negative 365) KETONES UA (BEAKER) (test code = 100 mg/dL Negative A 371) BILIRUBIN UA (BEAKER) (test code = Negative Negative 462) BLOOD UA (BEAKER) (test code = Negative Negative 461) NITRITE UA (BEAKER) (test code = Negative Negative 465) LEUKOCYTE ESTERASE UA (BEAKER) Negative Negative (test code = 466) UROBILINOGEN UA (BEAKER) (test 0.2 mg/dL 0.2-1.0 code = 463) RBC UA (BEAKER) (test code = 519) 0 /HPF WBC UA (BEAKER) (test code = 520) 0 /HPF BACTERIA (BEAKER) (test code = Occasional 517) MUCUS (BEAKER) (test code = 1574) Occasional SQUAMOUS EPITHELIAL (BEAKER) (test < /HPF code = 516) YEAST (BEAKER) (test code = 1585) Few SOURCE(BEAKER) (test code = 5633) Parking Inspector ID - [auto]Parking Inspector ID - hankPOCT-GLUCOSE [id number] 09:15:00 Test Item Value Reference Range Interpretation Comments POC-GLUCOSE METER 180 mg/dL 70-110 H : TESTED A T [facility] 6720 (BEAKER) (test code = [facility], 1538) [address]: Parking Inspector/Techni romain ID = [id number] for SHABANA MEDINA, RITCHEL POCT-GLUCOSE [id number] 08:42:00 Test Item Value Reference Range Interpretation Comments POC-GLUCOSE METER 50 mg/dL 70-110 L : TESTED A T [facility] 6720 (BEAKER) (test code = [employer] [facility], 1538) [address]: Parking Inspector/Techni romain ID = [id number] for AKOSUA GOMES, RITCHEL Comprehensive metabolic [id number] 07:47:00 Test Item Value Reference Range Interpretation Comments Protein, Total (test 5.2 6.0- 8.3 gm/dL L code = 2885-2) Albumin (test code = 2.7 g/dL 3.5-5 L 49862-6) Alkaline Phosphatase 120 U/L 40-150 (test code = 6768-6) Total Bilirubin (test 0.8 mg/dL 0.2-1.2 code = 1974-2) Sodium (test code = 138 meq/L 665-198 2852-2) Potassium (test code = 3.9 meq/L 3.5-5.1 2823-3) Chloride (test code = 106 meq/L 98-107 2075-0) CO2 (test code = 21 meq/L 22-29 L 2028-9) BUN (test code = 6 mg/dL 7-21 L 3094-0) Creatinine (test code 0.60 mg/dL 0.57-1.25 = 2160-0) Glucose (test code = 53 mg/dL 70-105 L 2345-7) Calcium (test code = 8.0 mg/dL 8.4-10.2 L 73955-1) AST (test code = 24 U/L 5-34 1920-8) ALT (test code = 12 U/L 6-55 1742-6) EGFR (test code = 158 mL/min/1.73 [place] [address]-8) NOT ACCURATE CREATININE CLEARANCE IN PREDICTING GLOMERULAR FILTRATION RATE . ESTIMATED GFR I S NOT APPLICABLE FOR DIALYSIS PATIENTS. ABAD (test code = ABAD) Parking Inspector ID - PIAYA L Lab Interpretation Abnormal (test code = 81598-9) [facility] [id number] 07:47:00 Test Item Value Reference Range Interpretation Comments TOTAL PROTEIN 5.2 gm/dL 6.0-8.3 L (BEAKER) (test code = 770) ALBUMIN (BEAKER) 2.7 g/dL 3.5-5.0 L (test code = 1145) ALKALINE PHOSPHATASE 120 U/L 40-150 (BEAKER) (test code = 346) BILIRUBIN TOTAL 0.8 mg/dL 0.2-1.2 (BEAKER) (test code = 377) SODIUM (BEAKER) (test 138 meq/L 136-145 code = 381) POTASSIUM (BEAKER) 3.9 meq/L 3.5-5.1 (test code = 379) CHLORIDE (BEAKER) 106 meq/L 98-107 (test code = 382) CO2 (BEAKER) (test 21 meq/L 22-29 L code = 355) BLOOD UREA NITROGEN 6 mg/dL 7-21 L (BEAKER) (test code = 354) CREATININE (BEAKER) 0.60 mg/dL 0.57-1.25 (test code = 358) GLUCOSE RANDOM 53 mg/dL 70-105 L (BEAKER) (test code = 652) CALCIUM (BEAKER) 8.0 mg/dL 8.4-10.2 L (test code = 697) AST (SGOT) (BEAKER) 24 U/L 5-34 (test code = 353) ALT (SGPT) (BEAKER) 12 U/L 6-55 (test code = 347) EGFR (BEAKER) (test 158 ESTIMATE D GFR IS code = 1092) mL/min/1.73 sq NOT ACCURA TE m CREATININE CLEARANCE IN PREDICTING GLOMERULAR FILTRATION RATE . ESTIMATED GFR I S NOT APPLICABLE FOR DIALYSIS PATIEN TS. Parking Inspector ID - PIAYA LPT/[id number] 06:14:00 Test Item Value Reference Range Interpretation Comments PROTIME (BEAKER) (test code = 17.2 seconds 11.9-14.2 H 759) INR (BEAKER) (test code = 370) 1.44 <=5.90 PARTIAL THROMBOPLASTIN TIME 38.0 seconds 22.5-36.0 H (BEAKER) (test code = 760) Effective 07/03/2018: PT Reference Range ChangeNew: 11.9-14.2 Previous: 11.7- 14.7RECOMMENDED COUMADIN/WARFARIN INR THERAPY RANGESSTANDARD DOSE: 2.0-3.0 Includes: PROPHYLAXIS for venous thrombosis, systemic embolization; TREATMENT for venous thrombosis and/or pulmonary embolus.HIGH RISK: Target INR is2.5-3.5 for patients wiht mechanical heart valves.CBC (HEMOGRAM ONLY)2019-10-15 06:14:00 Test Item Value Reference Range Interpretation Comments WHITE BLOOD CELL COUNT (BEAKER) 3.4 K/ L 3.5-10.5 L (test code = 775) RED BLOOD CELL COUNT (BEAKER) 4.14 M/ L 4.63-6.08 L (test code = 761) HEMOGLOBIN (BEAKER) (test code = 11.6 GM/DL 13.7-17.5 L 410) HEMATOCRIT (BEAKER) (test code = 37.8 % 40.1-51.0 L 411) MEAN CORPUSCULAR VOLUME (BEAKER) 91.3 fL 79.0-92.2 (test code = 753) MEAN CORPUSCULAR HEMOGLOBIN 28.0 pg 25.7-32.2 (BEAKER) (test code = 751) MEAN CORPUSCULAR HEMOGLOBIN CONC 30.7 GM/DL 32.3-36.5 L (BEAKER) (test code = 752) RED CELL DISTRIBUTION WIDTH 15.9 % 11.6-14.4 H (BEAKER) (test code = 412) PLATELET COUNT (BEAKER) (test code 70 K/CU MM 150-450 L = 756) MEAN PLATELET VOLUME (BEAKER) 13.3 fL 9.4-12.4 H (test code = 754) NUCLEATED RED BLOOD CELLS (BEAKER) 0 /100 WBC 0-0 (test code = 413) Hepatic function [id number] 14:38:00 Test Item Value Reference Range Interpretation Comments Protein, Total (test code 5.1 6.0- 8.3 gm/dL L = 2885-2) Albumin (test code = 2.7 g/dL 3.5-5 L 10398-7) Total Bilirubin (test code 0.7 mg/dL 0.2-1.2 = 1975-2) Bilirubin, Direct (test 0.4 mg/dL 0.1-0.5 code = 1968-7) Alkaline Phosphatase (test 114 U/L 40-150 code = 6768-6) AST (test code = 1920-8) 20 U/L 5-34 ALT (test code = 1742-6) 11 U/L 6-55 ABAD (test code = ABAD) Parking Inspector ID - CARLOS C Lab Interpretation (test Abnormal code = 02789-9) [facility] Center[facility]AT[facility] FUNCTION [id number] 14:38:00 Test Item Value Reference Range Interpretation Comments TOTAL PROTEIN (BEAKER) (test code = 5.1 gm/dL 6.0-8.3 L 770) ALBUMIN (BEAKER) (test code = 1145) 2.7 g/dL 3.5-5.0 L BILIRUBIN TOTAL (BEAKER) (test code 0.7 mg/dL 0.2-1.2 = 377) BILIRUBIN DIRECT (BEAKER) (test 0.4 mg/dL 0.1-0.5 code = 706) ALKALINE PHOSPHATASE (BEAKER) (test 114 U/L 40-150 code = 346) AST (SGOT) (BEAKER) (test code = 20 U/L 5-34 353) ALT (SGPT) (BEAKER) (test code = 11 U/L 6-55 347) Parking Inspector ID - CARLOS [facility] METABOLIC [id number] 14:38:00 Test Item Value Reference Range Interpretation Comments [...] (test code = 697) EGFR (BEAKER) (test 152 mL/min/1.73 ESTIM ATED GFR IS code = 1092) sq m NOT ACCURATE CREATININE CLEARANCE IN PREDICTING GLOMERULAR FILTRATION RATE . ESTIMATED GFR I S NOT APPLICABLE FOR DIALYSIS PATIEN TS. Parking Inspector ID - CARLOS CSARS-COV2/RT-PCR ([facility])2019-10-14 11:39:00 Test Item Value Reference Range Interpretation Comments SARS-COV2/RT-PCR (test Negative Not Detected, Negative, code = 1507928) See external report for linked test SARS-COV-2 PERFORMING LAB [facility] ERYN (test code = 8885195) Negative result for this test determines that SARS-CoV-2 RNA was not present in the specimen above the Limit of Detection (LOD). However, Negative results do not preclude SARS-CoV-2 infection and should not be used as the sole basis for treatment or patient management decisions. Negative results mustbe combined with clinical observations, patient history, and epidemiological information. A false negative result may occur if a specimen is improperly collected, transported or handled. A false negative result should be considered if patient's recent exposures or clinical presentation indicate that COVID-19 (SARS-CoV-2) is likely and diagnostic tests for other causes of illness are negative. Re-testing should be considered in cases of suspected false negatives.The limit of detection for this assay is 800 copies/mL.This SARS CoV-2 test is a real-time RT-PCR [...] 564(g) of the Act.Fact Sheet for Healthcare Providers:https://www.[employer]/sites/default/files/product/documents/Fact_Shee r_KX_Cmunrnkbp_Jfvy_EGKV-NiV-7.pdfFact Sheet for Healthcare Patients:https://www.[employer]/sites/default/files/product/ documents/Nlch_Bnfsy_Egyzntto_Rfxt_EOCT-QdO-8.pdfPerforming Laboratory:[facility] [place], [place] [address]juve [place], [place] [address]TWA, ABDOMEN/KUB, 1 VIEW [id number] 09:37:00Reason for exam:->Eval for persistence of CBD stent FINAL REPORT TECHNIQUE: Frontal view of the abdomen. INDICATION: 29-year-old man with common bile duct stent. COMPARISON: None. IMPRESSION:No stent identified in the expected region of the bile ducts. Nonobstructive bowel gas pattern. Bones are unremarkable. Retained contrast in the bladder. Clip projects over the left upper quadrant. Signed: Adán Herrmann MDRjaswinder Verified Date/Time: 10/14/2019 09:37:48 Reading Location: [facility] Diagnostic Imaging Reading Room - [place] [id number] [id number] XR abdomen / KUB 1 [id number] 09:37:00Interface, External Ris In - 10/14/2019 9:39 AM CDTFINAL REPORT TECHNIQUE: Frontal view of the abdomen. INDICATION: 29-year-old man with common bile duct stent. COMPARISON: None. IMPRESSION:No stent identified in the expected region of the bile ducts. Nonobstructive bowel gas pattern. Bones are unremarkable. Retained contrast in the bladder. Clip projects over the left upper quadrant. Signed: Adán Herrmann MDReport Verified Date/Time: 10/14/2019 09:37:48 Reading Location:[facility] Diagnostic Imaging Reading Room - [place] [address] [facility] 09:[facility]00 Test Item Value Reference Range Interpretation Comments Lipase (test code = 390 U/L 8-78 H 3040-3) ABAD (test code = ABAD) Parking Inspector ID - CARLOS C Lab Interpretation (test Abnormal code = 58415-6) [facility] Center[facility]ig[facility] 09:18:00 Test Item Value Reference Range Interpretation Comments Triglycerides (test 66 mg/dL code = 2571-8) ABAD (test code = ABAD) TRIGLYCERIDE REFERENCE RANGELow Risk <150Borderline Risk 150-199High Risk 200-499Very High Risk >=500Operator ID - CARLOS C [facility] CenterLIPASE2020-09-[facility] 09:18:00 Test Item Value Reference Range Interpretation Comments LIPASE (BEAKER) (test code = 749) 390 U/L 8-78 H Parking Inspector ID - CARLOS [id number] 09:18:00 Test Item Value Reference Range Interpretation Comments TRIGLYCERIDES (BEAKER) (test code = 66 mg/dL 540) TRIGLYCERIDE REFERENCE RANGELow Risk <150Borderline Risk 150-199High Risk 200-499Very High Risk>=500Operator ID - CARLOS [id number] 08:41:00 Test Item Value Reference Range Interpretation Comments MAGNESIUM (BEAKER) (test code = 1.6 mg/dL 1.6-2.6 627) Parking Inspector ID - CARLOS CBASIC METABOLIC [id number] 08:41:00 Test Item Value Reference Range Interpretation Comments [...] 0.57-1.25 (test code = 358) GLUCOSE RANDOM 92 mg/dL 70-105 (BEAKER) (test code = 652) CALCIUM (BEAKER) 8.2 mg/dL 8.4-10.2 L (test code = 697) EGFR (BEAKER) (test 135 mL/min/1.73 ESTIM ATED GFR IS code = 1092) sq m NOT ACCURATE CREATININE CLEARANCE IN PREDICTING GLOMERULAR FILTRATION RATE . ESTIMATED GFR I S NOT APPLICABLE FOR DIALYSIS PATIEN TS. Parking Inspector ID - CARLOS CHEPATIC FUNCTION [id number] 08:41:00 Test Item Value Reference Range Interpretation Comments TOTAL PROTEIN (BEAKER) (test code = 5.7 gm/dL 6.0-8.3 L 770) ALBUMIN (BEAKER) (test code = 1145) 3.0 g/dL 3.5-5.0 L BILIRUBIN TOTAL (BEAKER) (test code 0.6 mg/dL 0.2-1.2 = 377) BILIRUBIN DIRECT (BEAKER) (test 0.4 mg/dL 0.1-0.5 code = 706) ALKALINE PHOSPHATASE (BEAKER) (test 131 U/L 40-150 code = 346) AST (SGOT) (BEAKER) (test code = 22 U/L 5-34 353) ALT (SGPT) (BEAKER) (test code = 14 U/L 6-55 347) Parking Inspector ID - CARLOS Olsen, TIBC, % sat. (without ferritin)2019-10-14 08:38:00 Test Item Value Reference Range Interpretation Comments Iron (test code = 2498-4) 32.0 ug/dL 40-160 L TIBC (test code = 2500-7) 214 ug/dL 250-450 L Iron % Saturation (test 15 % 20-55 L code = 2502-3) ABAD (test code = ABAD) Parking Inspector ID - CARLOS C Lab Interpretation (test Abnormal code = 98617-2) [facility] CenterIR[facility], TIBC, % SAT. (WITHOUT FERRITIN)2019-10-14 08:38:00 Test Item Value Reference Range Interpretation Comments IRON (BEAKER) (test code = 547) 32.0 ug/dL 40.0-160.0 L TOTAL IRON BINDING CAPACITY 214 ug/dL 250-450 L (BEAKER) (test code = 769) IRON % SATURATION (2) (BEAKER) 15 % 20-55 L (test code = 2590) Parking Inspector ID - CARLOS CCBC W/PLT COUNT & AUTO [id number] 05:36:00 Test Item Value Reference Range Interpretation Comments WHITE BLOOD CELL COUNT (BEAKER) 6.7 K/ L 3.5-10.5 (test code = 775) RED BLOOD CELL COUNT (BEAKER) 4.69 M/ L 4.63-6.08 (test code = 761) HEMOGLOBIN (BEAKER) (test code = 13.0 GM/DL 13.7-17.5 L 410) HEMATOCRIT (BEAKER) (test code = 42.4 % 40.1-51.0 411) MEAN CORPUSCULAR VOLUME (BEAKER) 90.4 fL 79.0-92.2 (test code = 753) MEAN CORPUSCULAR HEMOGLOBIN 27.7 pg 25.7-32.2 (BEAKER) (test code = 751) MEAN CORPUSCULAR HEMOGLOBIN CONC 30.7 GM/DL 32.3-36.5 L (BEAKER) (test code = 752) RED CELL DISTRIBUTION WIDTH 16.4 % 11.6-14.4 H (BEAKER) (test code = 412) PLATELET COUNT (BEAKER) (test code 98 K/CU MM 150-450 L = 756) MEAN PLATELET VOLUME (BEAKER) 12.2 fL 9.4-12.4 (test code = 754) NUCLEATED RED BLOOD CELLS (BEAKER) 0 /100 WBC 0-0 (test code = 413) NEUTROPHILS RELATIVE PERCENT 71 % (BEAKER) (test code = 429) LYMPHOCYTES RELATIVE PERCENT 13 % (BEAKER) (test code = 430) MONOCYTES RELATIVE PERCENT 10 % (BEAKER) (test code = 431) EOSINOPHILS RELATIVE PERCENT 7 % (BEAKER) (test code = 432) BASOPHILS RELATIVE PERCENT 0 % (BEAKER) (test code = 437) NEUTROPHILS ABSOLUTE COUNT 4.70 K/ L 1.78-5.38 (BEAKER) (test code = 670) LYMPHOCYTES ABSOLUTE COUNT 0.85 K/ L 1.32-3.57 L (BEAKER) (test code = 414) MONOCYTES ABSOLUTE COUNT (BEAKER) 0.64 K/ L 0.30-0.82 (test code = 415) EOSINOPHILS ABSOLUTE COUNT 0.44 K/ L 0.04-0.54 (BEAKER) (test code = 416) BASOPHILS ABSOLUTE COUNT (BEAKER) 0.03 K/ L 0.01-0.08 (test code = 417) IMMATURE GRANULOCYTES-RELATIVE 0 % 0-1 PERCENT (BEAKER) (test code = 2801) PT/[id number] 05:24:00 Test Item Value Reference Range Interpretation Comments PROTIME (BEAKER) (test code = 15.7 seconds 11.9-14.2 H 759) INR (BEAKER) (test code = 370) 1.29 <=5.90 PARTIAL THROMBOPLASTIN TIME 32.5 seconds 22.5-36.0 (BEAKER) (test code = 760) Effective 07/03/2018: PT Reference Range ChangeNew: 11.9-14.2 Previous: 11.7- 14.7RECOMMENDED COUMADIN/WARFARIN INR THERAPY RANGESSTANDARD DOSE: 2.0-3.0 Includes: PROPHYLAXIS for venous thrombosis, systemic embolization; TREATMENT for venous thrombosis and/or pulmonary embolus.HIGH RISK: Target INR is2.5-3.5 for patients wiht mechanical heart valves.CHEM HROHD5294-59-81 10:48:0017 [facility] AzleannCHEM JRYUE9775-70-27 10:48:62406Irttyxtx HermannCHEM PANEL 2019-08-31 10:48:001[facility] HermannCHEM QZOGM2214-81-62 10:48:000.50[facility] HermannCHEM HCDKV6750-80-47 10:48:69786Pkwzoplg HermannCHEM WVDXQ1991-63-26 10:48:003.1[facility] HermannCHEM OMSDT2204-47-66 10:48:03474Phgaoixr HermannCHEM QNRYP8693-71-48 10:48:0025[facility] HermannCHEM OVXBA6144-32-32 10:48:0014.1 [facility] HermannCHEM YWYLL7348-49-72 10:48:007.4[facility] HermannCHEM PANEL 2019-08-31 10:48:40266Vemkyvhx HermannCHEM DGIWG2937-88-10 10:48:93383Lqnvnbpk XsburpdMXCEUORIBE6972-74-38 10:48:005.9[facility] ZpmqosrBOSANKFFRC2807-27-08 10:48:003.00[facility] CakcqcmQKYEPZRVSZ1091-48-97 10:48:009.1[facility] DKTCBLKAYX2677-08-76 10:48:0026.4[facility] KoqvlgpETHXPBDLTC3619-95-98 10:48:00 88.1[facility] CdvhclrMGIEDBLSPM5027-54-98 10:48:00 Test Item Value Reference Range Interpretation Comments MCH (test code = MCH) 30.2 pg 27.0-31.0 [facility] WlztoseUKEWZHWUAW0107-77-87 10:48:0034.3[facility] HermannHEMATOLOGY 2019-08-31 10:48:0014.6[facility] VuywhciCLNYHHECSN6904-10-23 10:48:14316Cupvuojw CkbarpiBSNFMHIEDL6057-01-65 10:48:008.8[facility] FjvxidzJZPGRXXBEM9498-70-05 10:48:0071.9[facility] KphgorxISGTAQUCKU6538-88-36 10:48:0013.3[facility] Nigel ZNHWPXGZUT8320-35-54 10:48:0011.1[facility] LjvwbamUETQVHBMGM4938-91-04 10:48:00 3.1[facility] EtqowweZKJFYVUKWN4515-89-57 10:48:000.6[facility] HermannHEMATOLOGY 2019-08-31 10:48:004.3[facility] JefauuiGGGDVJXGSD4954-04-14 10:48:000.8[facility] KqerqpfBELDOYPEGN5953-46-74 10:48:000.7[facility] YajcexrJYWRVTPQXI3056-66-79 10:48:000.2[facility] DeckadgKVGXHDVXEE0528-30-35 10:48:000.0[facility] HermannCHEM BNSNR7350-51-64 10:48:0017[facility] HermannCHEM MBVGU1298-55-44 10:48:48289 [facility] HermannCHEM TQNLG2944-35-77 10:48:001[facility] HermannCHEM PANEL 2019-08-31 10:48:000.50[facility] HermannCHEM KSVNR9502-00-30 10:48:32154Stsozcbc HermannCHEM OVZBE6422-61-72 10:48:003.1[facility] HermannCHEM ZTOHM2958-40-06 10:48:87591Hjiapwrr HermannCHEM KKPIQ1786-05-86 10:48:0025[facility] HermannCHEM RXWIZ6906-12-81 10:48:0014.1[facility] HermannCHEM IBXQO1388-95-29 10:48:007.4 [facility] HermannCHEM CTKKH3399-39-30 10:48:33792Amhkaufx HermannCHEM PANEL 2019-08-31 10:48:71687Fbwbyddf AcuwppuFLNBWDBIXI4104-30-25 10:48:005.9[facility] JvemtbhMVXCOJSINH9380-16-18 10:48:003.00[facility] UxpfytnVDIKOGXYSC8788-59-07 10:48:009.1[facility] SxoccqoFMEXBOBTAS8782-25-85 10:48:0026.4[facility] ZMNUHBXMTR0877-15-71 10:48:0088.1[facility] JlyiqqwYSZTVHCMOW9957-10-48 10:48:00 Test Item Value Reference Range Interpretation Comments MCH (test code = MCH) 30.2 pg 27.0-31.0 [facility] HipcmrbDRFNTBRDOD7979-15-49 10:48:0034.3[facility] HermannHEMATOLOGY 2019-08-31 10:48:0014.6[facility] LxwbgwuINPQIOSZHP4128-52-42 10:48:35776Sotvcqhq HdkjhdgAFDFXDRDXP1453-71-28 10:48:008.8[facility] RdgjlrcGUYQCVAGPL6975-02-33 10:48:0071.9[facility] ZaohmsyENDACSRLWC6107-03-14 10:48:0013.3[facility] HUBXNWHQKK2588-96-95 10:48:0011.1[facility] NyzmtpsEVGEHRJDEU4117-47-56 10:48:00 3.1[facility] EznzdgcSUIEJQUCHF0475-49-53 10:48:000.6[facility] HermannHEMATOLOGY 2019-08-31 10:48:004.3[facility] ImdxgwpULLARAWGDE3120-84-40 10:48:000.8[facility] IipwmdoRYFQQBMLYI2469-43-25 10:48:000.7[facility] XqmthbrENGGXLACEB8244-04-56 10:48:000.2[facility] QvyhsrcVLSHGFUGYO7262-33-39 10:48:000.0[facility] HermannCHEM DRDDP2770-29-15 09:13:0057[facility] HermannCHEM EFWVB7504-19-47 09:13:002[facility] HermannCHEM KKSSI3968-18-31 09:13:000.40[facility] HermannCHEM CHKUV3590-94-41 09:13:44034Aurpgpck HermannCHEM NGIVF0549-16-44 09:13:003.5[facility] HermannCHEM MTPLJ2476-12-03 09:13:58429Pwshbxfs HermannCHEM IVXUN4668-83-31 09:13:0022 [facility] HermannCHEM IQGPJ4944-08-90 09:13:007.7[facility] HermannCHEM PANEL 2019-08-30 09:13:0015.5[facility] HermannCHEM XZMEG9273-03-26 09:13:14226Rsqkiges HermannCHEM FTUHA1296-16-36 09:13:00<0.05[facility] UkuxlhpVBEPMMZWPR0935-81-98 09:13:006.2[facility] ZwsybxkRQIQXFIYHN2423-86-64 09:13:002.92[facility] GUAKAHGBRM1529-60-54 09:13:008.5[facility] QaeymviZRALOOKASZ1544-59-29 09:13:00 26.2[facility] FvbazeiKWZVYVWGZQ9984-08-29 09:13:0089.6[facility] HermannHEMATOLOGY 2019-08-30 09:13:00 Test Item Value Reference Range Interpretation Comments MCH (test code = MCH) 29.0 pg 27.0-31.0 [facility] ZglvcwmGSTYOGDXGA1309-66-58 09:13:0032.4[facility] HermannHEMATOLOGY 2019-08-30 09:13:0015.0[facility] VwhrciqPSKTWMJHCO6858-61-29 09:13:00071Gwflhvjk LmusepyNRBDQLSWBN2914-43-39 09:13:008.6[facility] ZavzkugGDRFZUIHVI4553-30-31 09:13:0077.2[facility] EfdqumuCKIXLTPNST9858-08-29 09:13:0011.4[facility] JINUTLWUJZ5503-94-95 09:13:009.1[facility] FzsdrlfWIDFRIYBWD9880-33-86 09:13:001.8 [facility] LmezzbjTZRFKUTGUW2879-79-83 09:13:000.5[facility] HermannHEMATOLOGY 2019-08-30 09:13:004.7[facility] PsqrylaBQEMGQBXZY7390-23-85 09:13:000.7[facility] FcocsojLZEXMMLKKH6113-75-28 09:13:000.6[facility] QzriouoHLVPHADYHR9096-36-91 09:13:000.1[facility] HermannCHEM JMCPI3947-60-88 09:13:0057[facility] HermannCHEM FVATC2445-52-98 09:13:002[facility] HermannCHEM ZTYLO6369-79-41 09:13:000.40 [facility] HermannCHEM SSWIJ9030-25-50 09:13:34833Skpjrvwe HermannCHEM PANEL 2019-08-30 09:13:003.5[facility] HermannCHEM PKIRB0433-39-45 09:13:79314Qooidsgg HermannCHEM BDXCC4856-32-45 09:13:0022[facility] HermannCHEM CXRFO6676-96-90 09:13:007.7[facility] HermannCHEM GINZY9298-83-39 09:13:0015.5[facility] HermannCHEM VNLZJ0814-31-68 09:13:16021Ufaaxgws HermannCHEM TQXTJ0025-49-81 09:13:00 <0.05[facility] YfchzrqXIBWHDLBYE7833-14-94 09:13:006.2[facility] OXBICKSUSS2133-52-20 09:13:002.92[facility] IcivqqqFJJNFKXSXF5475-07-41 09:13:00 8.5[facility] TksmpuvXDOINTEEHZ4221-23-29 09:13:0026.2[facility] HermannHEMATOLOGY 2019-08-30 09:13:0089.6[facility] VnwxurcTUMAIYGKIB2960-75-30 09:13:00 Test Item Value Reference Range Interpretation Comments MCH (test code = MCH) 29.0 pg 27.0-31.0 [facility] CprailuMOMMWBQJNQ6685-89-44 09:13:0032.4[facility] HermannHEMATOLOGY 2019-08-30 09:13:0015.0[facility] KcctqbtJZAECVQESO3684-07-52 09:13:75788Ebblszfj XlueunrBSKBHBHYWD1203-78-20 09:13:008.6[facility] TddrskhPMOEHCBGJB3417-53-04 09:13:0077.2[facility] CkeeclsFVPCZMLDRF5495-60-25 09:13:0011.4[facility] SKGAWNKHEP6351-14-46 09:13:009.1[facility] BfmwftgHUUJXPLWXR2875-61-23 09:13:001.8 [facility] IuwnexgMHFFUSYYXF6836-58-46 09:13:000.5[facility] HermannHEMATOLOGY 2019-08-30 09:13:004.7[facility] BpqomxfHSQFFALCLJ1267-49-74 09:13:000.7[facility] CfjuftzQBHOYFMLYV9270-33-86 09:13:000.6[facility] EnlhpqyDBYEMGIDAX7313-85-09 09:13:000.1[facility] FnqgpmwEKSLACONUL1117-01-70 11:29:00Not Detected (08/29/19 6:29 AM)[facility] LvdmzdgGJOXFDGLOX9501-40-50 11:29:00Not Detected (08/29/19 6:29 AM)[facility] HermannCHEM SSHVM3743-80-12 09:30:0071[facility] HermannCHEM PANEL 2019-08-29 09:30:003[facility] HermannCHEM NAUTG0044-40-84 09:30:000.50[facility] HermannCHEM ASBDL4427-60-85 09:30:69898Ilbykobs HermannCHEM YIZNO7044-35-65 09:30:003.3[facility] HermannCHEM JDTWE0208-91-25 09:30:09917Qcpcvxdo HermannCHEM LPPRA2420-54-13 09:30:0026[facility] HermannCHEM RISPO6018-80-23 09:30:008.2 [facility] HermannCHEM MUQSZ9585-15-22 09:30:0010.3[facility] HermannCHEM PANEL 2019-08-29 09:30:11019Sqiokiem AigwxbzUCMLRRYJKZ5524-33-22 09:30:005.2[facility] FkdofuiCCCBPEYLON7232-75-67 09:30:002.91[facility] SloaddpHALMXKNQWO4983-26-30 09:30:008.8[facility] XbokrbxYANUJSSDRH1654-64-14 09:30:0025.8[facility] CSEWRHPXNG8883-29-42 09:30:0088.8[facility] QzohwklVNYGSYLVVN2404-84-02 09:30:00 Test Item Value Reference Range Interpretation Comments MCH (test code = MCH) 30.3 pg 27.0-31.0 [facility] JrggexfSOCESMZIWS6680-22-79 09:30:0034.1[facility]annHEMATOLOGY 2019-08-29 09:30:0014.4[facility] CiqdwovMLKMOOVMAS1175-23-25 09:30:51707Rtiwdowc EkpzbwnWWDNSMOJLH8331-55-47 09:30:008.6[facility] VroxygeGKADWUYZLT3651-54-52 09:30:00Normal (08/29/19 4:30 AM)[facility] WisnvkwLMUQCKSIEJ0722-85-44 09:30:00 Normal (08/29/19 4:30 AM)[facility] GbxqwtvPDLZGJVZPS8691-94-27 09:30:0070.7 [facility] AspseyoYVMGRRRBBK9089-26-64 09:30:0017.3[facility]annHEMATOLOGY 2019-08-29 09:30:0010.4[facility] JffuluvVYMVCPMZLK3578-40-56 09:30:001.0[facility] CevygybMDMZTXAJMM4808-73-37 09:30:000.6[facility] KrdolafAWHAUHXEVW1450-41-56 09:30:003.6[facility] GonxkocFMOPPDLVKR2637-36-44 09:30:000.9[facility]el LKYTIDOJRX8218-92-99 09:30:000.5[facility] MwnbnauVPKBUCAYUT7399-37-33 09:30:000.1 [facility]annCHEM WVGIK3695-18-30 09:30:0071[facility]annCHEM PANEL 2019-08-29 09:30:003[facility]annCHEM MMKCN7786-93-63 09:30:000.50[facility]annCHEM ITUPG5573-36-73 09:30:50123Hyteawud HermannCHEM UVWLP5849-04-80 09:30:003.3[facility]annCHEM IDRNU5580-13-34 09:30:47012Kasrmzme HermannCHEM AIEEC6812-37-84 09:30:0026[facility]annCHEM QMHDC8555-67-30 09:30:008.2 [facility]annCHE[facility] ZKZSR5877-06-66 09:30:0010.3[facility]annCHEM PANEL 2019-08-29 09:30:95499Rpnddyoa XhjktbkRHCKDMELHK9698-59-38 09:30:005.2[facility] FqtbnssPUJEAYLYLN9883-10-30 09:30:002.91[facility] DhfsfylQSXLUJYQHA9566-27-19 09:30:008.8[facility] EkfnxouOGJLEBAQET8458-93-01 09:30:0025.8[facility] WUSKDYTUSV6014-61-36 09:30:0088.8[facility] EkdgcmjUTZGIZZBTR7139-81-88 09:30:00 Test Item Value Reference Range Interpretation Comments MCH (test code = MCH) 30.3 pg 27.0-31.0 [facility] GmtxhyrXPOIBANRVB1551-08-34 09:30:0034.1[facility]annHEMATOLOGY 2019-08-29 09:30:0014.4[facility] ImfuhwaNDLPWRSOBY7943-01-32 09:30:11368Nblnnqad UolgucfZBRJQPJHVA5287-20-86 09:30:008.6[facility] SeqilrnNNESVFEUMS2880-55-30 09:30:00Normal (08/29/19 4:30 AM)[facility] PadgeilOCUTLMKXXM0391-40-62 09:30:00 Normal (08/29/19 4:30 AM)[facility] ZlzqrnsXVENDDLVLY8639-86-17 09:30:0070.7 [facility] EbhsssqPGICMTTROZ1843-16-22 09:30:0017.3[facility]annHEMATOLOGY 2019-08-29 09:30:0010.4[facility] LlzghytFNKZFXKKGQ9317-61-95 09:30:001.0[facility] PoztfniIMJBYZJIFD0862-93-29 09:30:000.6[facility] ScuwlgoWOQWAPSQDD0118-86-19 09:30:003.6[facility] RvvidzkKYKYBOEMTY0723-25-82 09:30:000.9[facility] XTFZKKWWRU7103-50-92 09:30:000.5[facility] LekffmrVCVXEOCPRN7531-19-93 09:30:000.1 [facility]BL[facility] VIMBTMR3072-70-42 10:41:00Product available 4(08/28/19 5:41 AM)[facility] CGKTCFR1662-96-02 10:41:00Product available 4(08/28/19 5:41 AM)[facility] QAWXTQS0085-42-02 08:37:00Negative (08/28/19 3:37 AM)[facility]annCHEM ROHVM6479-45-15 08:37:005.1[facility]annCHEM IQRTN9968-26-95 08:37:001.2[facility]annCHEM LCTXZ9495-07-67 08:37:007[facility]annCHEM RQPQT4625-70-37 08:37:0014[facility]annCHEM OHVLV1939-38-62 08:37:0088[facility]annCHEM AFJIJ2902-60-06 08:37:000.3 [facility]annCHE[facility] KQIFL1899-79-13 08:37:00 Test Item Value Reference Range Interpretation Comments B/C Ratio (test code = B/C Ratio) 12 1 6-25 [facility]annCHEM LIZHC9111-16-42 08:37:003.9[facility]annCHEM PANEL 2019-08-28 08:37:00 Test Item Value Reference Range Interpretation Comments A/G Ratio (test code = A/G Ratio) 0.3 1 0.7-1.6 [facility] UxthaudSDFUQFGCGC4392-43-72 08:37:00 Test Item Value Reference Range Interpretation Comments PT (test code = PT) 17.3 s 12.0-14.7 [facility] DgxtqluURQODIXTTG6293-74-87 08:37:00 Test Item Value Reference Range Interpretation Comments INR (test code = INR) 1.40 1 0.85-1.17 [facility] TbeansqOLOCWVUXYY2696-55-64 08:37:00 Test Item Value Reference Range Interpretation Comments PTT (test code = PTT) 45.5 s 22.9-35.8 [facility] EmbkiziNRPNNJIZNX7215-09-80 08:37:00Normal (08/28/19 3:37 AM)[facility] CkfnijhRWFGZTFMSI1333-13-53 08:37:00Normal (08/28/19 3:37 AM)[facility] ANVLJZIBIY5394-30-08 08:37:000.0[facility]BL[facility] JFOJMMY9177-62-37 08:37:00Negative (08/28/19 3:37 AM)[facility]annCHEM ZPIPN0589-99-74 08:37:00 5.1[facility]annCHEM QXMCP9587-95-83 08:37:001.2[facility]annCHEM PANEL 2019-08-28 08:37:007[facility]annCHEM PNYZZ9261-49-14 08:37:0014[facility]annCHEM YRHRL9480-90-92 08:37:0088[facility]M SFLAJ2710-32-10 08:37:000.3[facility]annCHEM MJDSA4461-58-91 08:37:00 Test Item Value Reference Range Interpretation Comments B/C Ratio (test code = B/C Ratio) 12 1 6-25 [facility] BVHLJ7838-41-81 08:37:003.9[facility]annCHEM PANEL 2019-08-28 08:37:00 Test Item Value Reference Range Interpretation Comments A/G Ratio (test code = A/G Ratio) 0.3 1 0.7-1.6 [facility]fekjyXJZNWLCNUF6345-26-86 08:37:00 Test Item Value Reference Range Interpretation Comments PT (test code = PT) 17.3 s 12.0-14.7 [facility]leGojjnoaUHHNJZYNRJ7580-06-49 08:37:00 Test Item Value Reference Range Interpretation Comments INR (test code = INR) 1.40 1 0.85-1.17 [facility] KlxqfdnULPDTJGVXY7089-42-84 08:37:00 Test Item Value Reference Range Interpretation Comments PTT (test code = PTT) 45.5 s 22.9-35.8 [facility]leVkszdliBZUITGBVAW9131-67-13 08:37:00Normal (08/28/19 3:37 AM)[facility]lePfgshwnLKDVKGDMYY2115-67-10 08:37:00Normal (08/28/19 3:37 AM)[facility] HGSUCEYMMD0207-71-83 08:37:000.0[facility] HermannSARS-COV2/RT-PCR ([facility])2019-08-27 00:51:00 Test Item Value Reference Range Interpretation Comments SARS-COV2/RT-PCR (test Not Detected Not Detected, Negative, code = 9983107) See external report for linked test SARS-COV-2 PERFORMING LAB [facility] (test code = 1064889) Negative results do not preclude SARS-CoV-2 infection [...] of the Act.Fact Sheet for Healthcare Pro viders:https://www.[employer]/Documents/Xpert%20Xpress%20SARS%20CoV-2/Fact%20Sh eets/302-3802%86DQBG-UCC-2%20HEALTHCARE%20PROVIDERS%20FACT%20SHEET.pdfFact Sheet for Healthcare Patients:https://www.[employer].com/Documents/Xpert%20Xpress%20SARS%20CoV-2/Fact%20Sheets/302-3801%20SARS-COV -2%20PATIENT%20FACT%20SHEET.pdfPerforming Laboratory:[facility], [place] [address]Kcwqhdg Leuko-Red BRO9309-11-31 23:54:00 Test Item Value Reference Range Interpretation Comments CROSSMATCH (test code = 2264) COMPATIBLE Unit ABO (test code = A Pos 6623121) UNIT NUMBER (test code = L690683730448 934-0) Status (test code = 1596930) [place]_TIMEINCHART Blood Bank Product (test code RED BLOOD CELLS = 2263) PRODUCT CODE (test code = B3296F08 933-2) [facility] 17:29:00 Test Item Value Reference Range Interpretation Comments Case Report (test code Medical Cytology = 104) Report Case: [id number] Authorizing Provider: Uriah Childs Collected: 02/15/2019 1226 Ordering Location: [address] Received: 02/15/2019 1529 Service Pathologist: Nereyda Causey MD Specimen: Common Bile Duct, Distal bile duct brushing in CRR DIAGNOSIS (test code = r3lukKWjWKRuo7jyNEEhsU 3220) FuZzEwMzNcZnRuYmpcdWMx NCvsjtCbPCrah8ZwZ2ZwJv AwMFxhbnNpXGRlZmxhbmcx SIHvHFG1xzCmJXFrOEqgSY PbLXmqGa6yyRGuvZcwArUo PEEji3hgpsWEuexptQv0t2 aeECZjUxJ1uYVzRCbnV8os oeWlxECtUXRrUYn5lB86LK JtwZ8zpVTfBZykkjPiMsL2 MQsyFJJoAkU8VYRygKDsVY SoR9coQCTwFKvsLZDqBPyw cLAkKWW8nMwha7J1qTJivQ WfwUwkEtJpSaYsBSDEa3Yq TBd6sFtnX4HxCAOfZmZ3mU QgUGFyYWdyYXBoIEZvbnQ7 yX74JZhncaB3hALvz6Alv4 7gv142yO3ujMUmXVF5TXAk KZPimXDzDABiWEO5BLYfcE JbU3w3OqXibRYyA6D4KwYv fWKeC4G7GoYluCDtI5I7Lg BqrKWyQLTvbEKmJc0wfSRx yORebc2gaf46UXF7h5SbtW vjKQA4RCX0NhJdTi7bxELh CDObYY7hAhUepSJxPLLprf 06qUpzGWqburJsgF1eBkHk LUMvnFVzBOHxIM5ouEGhON JabF5lconuZVNlIpPejxjs JOOhnGeshkFqAg9faXepZU W5KZkgS0qgwA5gRlF6NNdz R3mwpE5lURe2MYndfOJ0PL VhqT5nYD9ftegnc9llNrYm YT8rpezto4emXcEfIX0zsp e7a1gnCmGjDM6bklifo9jr NzIwXGhlYWRlcnkwXGZvb3 BztpjaLUBoy3RwG2CmwTka E39ysEbtF37iOXNjdSswpO 1coJysbP9xVrDwGgQyZLub bFxwbGFpblxmMVxmczIwXG dintogWZKsHRmgY4hjKyFi JZHzzLvtUMiew7AyEPTsZL GsHfDgQ65PYO5RXVVCUNWb RFVDVCBCUlVTSElORyAoQ1 gIZ8RJKH1YVTVSZLUPVBsE UDZGJ8LALVffdDvzHJYcGB HcUB7JEFEMZSRFAAfXCVEN ENMCIPdRJqXGZqKHYZ0JFQ BGQVZPUiBSRUFDVElWRSAo W5RVPIIZTX0OJnZiBSDiny 98XQM4BtYrn9G5HAZ5ZHIm BSBtu4maMPOvgMWnToZyQf NcZnRuYmpcdWMxXGRlZmYw e2sbu744eMOha5mwWPFfPm N7tWTpEAZwnSFdH562UAZm MEsqg6vne7QuEWMuvRRtf3 M7TSMXnghpzPn1bMyaB81z q9N7XdfhS4lvMYBcRAIfI6 QzPH8cHNGnWmr5FRN9UBD9 BMFsLSHpA4NjNO0wDJBhwC HyOUp0q2oogCeuTZEeKPL7 e8qfAOkvvqDuCF2jhk8blT q8m2yirqTmBTYgXOFhiBMO CZRtF3PdcEuvWs6gjKv2hL tmMnhiCLE6Tpp8PT5csg09 fvx0kQwmOSMwekshSoL2XD rwVGVhaidsVNr1UPfjGGAm iXW9OXSqhMJeQ5XkRHUcLK 2xarw1QJQ6TZrrFBMaFhN5 NDBcaGVhZGVyeTcyMFxmb2 66ESH8TrNrJS0uO7Iua9J6 bM2zgVNuRHVvxVRmMtIeNR Wauu0qlMDpOIqiv4SnUBX9 scE0oUXcmDBcEODzYxX8CL ryAG1tsw23DFRyBMD3wo1c bGNccGdicmRyaGVhZFxwZ2 TbJBJco625JGNoL6QeYFWs z5R8oyVaYjYwAEAyqVU2bu B6PCYaID2euxbmv9qoLBqc JIrlCQInkvK9lcD6TPEliI DjY1XopX0bOFYbUA8oznlh x6iaGCC2PMerXFQhFLG2Rx UmVBYfj4Jdpgz7XyQyy2Hs xDHyLEhpC11hh371VRLrwn JdX6bbgVOneiuqoWEomvfo ENkmvdB3BYElKAvhlxrdRF FmGWwaD0opPqWfBRVttCkb GAdas4JoZGAhVIGoTbCfwB OyWVDzKrh4VYOmfTOyUHNq UpMaI7pfwnpsYnKQMIQub8 gyM3xsbTRLuXZhZ7MqMZrs tbSfTEquFRmeJIW3QQJ3Bh 95RiF9YFMema76 COMMENT (test code = j7xyvXCoLZEwiUSxQxCoCE 3359) JtJZWan1voSVHukGInBpDs MzNcZnRuYmpcdWMxXGRlZm Hjj3hqx212uZBwf6qlEDMj OjQ1dQZdXPArdRKuP186n9 lxs4scobIqkBL4MYQiLDX0 XVefilPmpeM2ZTcwtEVgCk K7KYsifeTtGSqsswJgmaWa Zey6JMElP676NNK6yFtvw9 lbGEU5MLOpLHLtCtWpXk7y aAMoN389XWBcXGVCSDFzeQ g1CBBzxtAkuoBkhXGKa923 R229a5hgZTRyvhVfxDpOml xfz8cnR651UXYbpRZghwUo OuHoTCGkaQKdlEQ8QGHzUF 0xwbgnTkJrUA5tahhgHvXv NJ7yscs1GoAkBE9uvftfSo SfVMccQMYtxtfuYXKxz1Nt hciiSQ0qN7Etx5C9yA9dbM OeEZNviEGfUhEoXSNykl6k oDIlMGkuz7EyDNL7vmE5oV SbrGLaKBDtHE53Wgqew5Ka UqpzKHK3XFTlsgMko0Okq1 asTpAwngCgM7kwB1HcDRAf DMDdFJPeYqDtqlFqo1Nst8 GddKXolHr0j3lcQGLiDNQn kBmam3oxIUK3JCSqM1Y3zZ Tpv0puAEdaCMVdmXY8bcfe ZNaxCJLbejL0ovkkVEpsME GqhUV1ulypEAvhJJMtEqA7 tzaaFZjgYYVwFYA2OVmfb9 81IIP4UNnbRpktBZumQZEp bmNvbnRccGduZGVjXHBsYW luXHBsYWluXGYwXGZzMjRc vNcvhPlslD8tMmJiFfCwWF ilRD6oTEHkV8pnhKGiCJZy VUIdL5chSsQjbQ0zpGvsUW xmczIwIEZldyBtaWxkbHkg YEY1xFakODllI8ZryGWcSV GwIBMjBAJfkpAdRN2oNTer gRzztKakYHfga2Rndbpin4 Dmy7JmopJzXBAmioMvM7Pg amYmpTNdQ5XvjlCenzYcCZ ZvcmVkLiBDbGluaWNhbCBj g7JoSQbifMsmhsOdiuNpOQ PrbF0omfZhPD1pcXRspV== CPT Code(s) (test code u8shpPBlNHNakCGaQuDlVX = 3357) TjQGWat5fxLQAeqAQmAeNn MzNcZnRuYmpcdWMxXGRlZm Xux6urx812zZWlg8tgVSFg QcH2pLYdYOXehJAyB935a7 zoe3cvtpWulXZ1VASxVXB5 NWxnlsBievP5EOftnCVnTa J7OYgbomNzQSkgduLpypSh Wye9VAKzF570NRK2iLvdg8 wrYJU2HCEoONImFkMnKt2a vMVvW970HHZjBDNLXQShcQ d6ULMjonDdcsJvkSYYn169 C905w1xgVZHmxxIubAgImd lrr4ntL757MEJqhMBersVt QhTaRIRpzNLcuDH6HLZxXM 4ylwkpWoZnAA7tvspvSvUg CC4mipr1EeXyMS3zjouoDa KfRWcxTAIogntpCDIrc7Fj dsvsUV5eU6Kvo6Y4wW6orV QnRTNdkOHuWnXqMHGdnr4v sUUcFEiwc6VbBNO5rwG6iC YncAZoARXjFO41Tnnxf1Eu ZjqiGEZ5EEAylaGmv5Vlv5 buZlElaoFxV3slZ9JqAEKl CURdDACnHyAfxhNil9Jie6 UlcODqjQe8d7zmSFQhZHBe lTall0jyOZE4SQIjZ5X5dB Cxt1nrTPhdQJWutHH6ebdg MPevSENforB1voghZHpeHM GiyKT9bcovEUcbTRWgBvL7 tpzcJDlgGOZhBEK2YGsly0 82VOM1WLnfTvqvLMpfWAFn bmNvbnRccGduZGVjXHBsYW luXHBsYWluXGYwXGZzMjRc uZgtaBincW9gZqCaBjCpTC icSP2hPCDiU5wqdRZkVUBu GICsB0rvZtHjaW2wnJtlIE uknjOzJVj9XSF2JTA9CUDu NVxwYXJ9 CLINICAL DATA (test a0ihtPHsEPOncQWfRbBpQR code = 3355) DvBRKpm8ilICRosFIwHdSu MzNcZnRuYmpcdWMxXGRlZm Hbp6xif551mKNrt1oaWSZj PeD4tTMyVTZxrIYwM989UE BdXZxde0wqy2UyDYCciZFj p9G9OQPYlmpzmRo8uNkjU9 5sp6U0CqkyF9xcWIGfIHSs I7NwXE6oOFJuBia8NXS0QK O3YPPpFVWvQ4VsTP2lWSCf fKLzIKc9e4epvJalEJKmZO M3y1hgOOkygzElAX1hjz9y iUz5p0nriqGqMNMkYZVziT OEKIQzG7GrhWusXj9toIj3 dFdnOoehMDL1Hmc2SS2bra 61fep6fFatCNIaukwqReU3 IChuQFNhlpqePYg4LEhtBI JnbDcyMFxtYXJncjcyMFxt YXJndDcyMFxtYXJnYjcyMF hxKCOqZHU9QUhcp948FOO2 JKpoc6cvj7ayfMAyZkw6IP RlBoHrTzteHWyol0Zzk3yl QRIfyk1oENY9kMQbcWrcv4 I7tIDzMMAjoOWiuwRnWMGo LbY6YYqdCO8wcw89ERAjHQ G5os9rgUVqiVnrriRwlBKy STgdP8VtAPHqd020FFKcJ8 JrOIBbo4M0zmYqRiPrTDOj bCH4luM9STOoMPh0tPIihs K8weNlcPQcV3lzfF49ZaIu gRGgH7LyzU06NlMtyQXsU3 QmlY26SmVnmLRaO0HfaW10 WdMjoPGdJOFbfHEaAh9zbT XvlLNjv9QggDRhZGgiI53j t339GDCmdmYkQ1dgiHCqte lcaMGubvqeIXoyulZ0DWOd XHBsYWluXGYxXGZzMjBcbG FuZzEwMzNcaGljaFxmMVxk CkGlSWBkDMuhR2oeZsIjGb MyMCBKYXVuZGljZSwgYSBs a8XmxWo8ONVgKsknmZTkuX AqzRPwA4K2roGac2l2tSE2 dLW0pjMsrNCvyGwaeIxikt xwYXJ9 SPECIMEN SOURCE (test v7svtHDsKZAonQXuLuAeQJ code = 3377) FgGJKqi6reBMLklWHbXpHz MzNcZnRuYmpcdWMxXGRlZm Nsu3hre358iFQhf9zqWUBe GtJ1gRQrEFIrqOTlN090u4 ila4qbdfVrtKJ2EBXeMKF5 GIreruAjmiP6RRfwmGZwXe J1EKmnavLmSIlgceDqibIl Fzf7GGBcN736UJN0tUddn8 cxYPD3WHMdMIVoMiCiOz1k fRTbJ456XCVpTUNJMNSrfF a3JVWektOnpbKmpWNIv143 M578h5duYINarjDvmFjCwt nzx8fzJ989HZAghEDvqaNd OkVtTDAymAHttSB5VCMhNO 3kohcdVfZvYA1gwnmuGuAo EJ6gzdt8VnGhIE2iifahPi LxASqdVYSlzzzyMJTnr1Zy zkhfXD1cZ3Zqo6W0wW3fdF VuUSDlrIRcGkZeIIBdje1w mDLcZSolb0KfYIK1tzC7gL YqqQAnIQXkDI13Maeve1Mq WhdyCIQ3SNAltdTgn3Hxv0 qbDuFmzsIdY3lgX5YnZIHv WJGpOOWeUuBsacDvk6Sez3 IouYStcKt8x1enSNIzTJTt oJixq2ccSYF1CMPcJ6L9oM Wfl9wzOBkqADKbgLS2ohdi FMvcHUUwqvD9axanRZoxTC JeyWH9ahrxYAxrDHGrFmA1 waxrNXicBRRbEVU2ISrag2 40AHH3QCmsHgvmGSkpCVKs bmNvbnRccGduZGVjXHBsYW luXHBsYWluXGYwXGZzMjRc yIjmdRwcaZ1wNxBmFrTnPT vyDL8rSFTpK8xewJYkKOEv LWSsF7xuWdEvtB9wwGqvQT cwuqZfZTKUVZ0JEeTRGOcI PXICM9YzZuSOA1jMMotlqW FyfQ== GROSS DESCRIPTION (test y4wmwBEbMUSgkQRfWlJsCO code = 3366) LhXNQlr4hlEFWhuQSwLuVp MzNcZnRuYmpcdWMxXGRlZm Caw6fga175zRGeb6ynQGXp QvV6sAYoCXNckYVnV851IH BjBYknm8gsd4FtSTUuuDGn n4W2XNQTzyaslKx0xSpmL6 5fo2M6MewjZ6leCJFvOAIt A1RqCP1hQAHnGmt6PDW9MC U6GLEmYLWsW5WlGI7fFYXb oZItWQy7w0cdlDwzGDWeVQ X1q1bkJAptbnGzVL8fme4y dCz7a4inuxRvUTUnPNOssI OANRVeR9QorZwuUm5mlSz2 kUjfNlkrHRR7Ims8NZ6oms 01nvw0iAiyVUDqqsbtOsC0 XZfqHSUtkmdyGFo3ZYgjGL JnbDcyMFxtYXJncjcyMFxt YXJndDcyMFxtYXJnYjcyMF lkXDShEIL5TFaqx184FGW8 UYics0jqg3eupCJaDuy3RA GkQrIwWskmNQxhi2Reo4to GRKqqo1fCSA3oKHhcHmul6 T3zJSvLMWdxSXzrdLfQLWx VhM6VSchRQ6sqr05SEOoTD M0yk5snRAhaKdffbHjmIAl MNrnF1HeIBWho737PSHgR5 JqIRKjj3R3ruStTuFyACNn kHK0rwP9WCSrSJo0cLKruc A1khFgpDUnB3qykQ03UsDn lRNhW7XptL72AqOdqZPvS4 JrcA21SnBmfKPeG6EoiY22 BiLoiTVrANXybZEyIi9nvD LmwETrm6GlqCOiWCeqV70t n692VXFcmbAuK7ayqEWtmt rcpTZbarbyRHguvrA4BNKa XHBsYWluXGYxXGZzMjJcbG FuZzEwMzNcaGljaFxmMVxk LcWbKCQfRSaxR4qaZqErXp TkNvQnTFYkgWDsfX4uT4n3 a9EcB9zvhxYgAoUaYIV0eJ 4qpAszqiwjJ7FbvMOugG3q zgGaV42xsB1zmT8mEKPbFe xgoKTrJXQqmFtmP5NlOJng MDExMTIwXHBhciBSZWNlaX ZlZDogMDExMzIwXHBhcn0= MICROSCOPIC DESCRIPTION p6gtcCScCQMniRYtAcRgGR (test code = 3371) LrEWRms9edXERfkQAoMpLo MzNcZnRuYmpcdWMxXGRlZm Hmi8tqd134fCRgl8xkRTSt YmR6nXOsXUCvzVWzY821r2 nrk0unpxWanBI5LQAxTOZ0 FHcjgqEdvkA1AOsxaLOcDu Q7LLveclVwGDqathTvweBa Zhp0YHHgJ669GKP6eLcpt5 wuDJX3BCScENIeWwUhWm6d aVXqR552UGYvBFVVEQZfhP u8JRIzqmJmgwZtoQHVr993 D364t1afNQEjjwRbwUgHhg njp0zmG015OUWvcTHibtXq PwPdWVAoeUTblSG6AZAhCE 4knndqKfEqVN4nahnkIySg JI4gmwy0DvKoHV2pwbsaLl AwWSibUNIlxxhcXXYuf2Tt vfeoHU0hJ7Gbi3Z8sX5mzH MaPXGigDNxYbUmILEsdv2w lIIbNKdfj2DwVUH5sdP6oP IakDKhVAHxQP58Lwkes7Yc AueyTBD7OEXwqvMxo7Zcn6 opMkUxqqYmG0zzE5IuSYNb DHXwNGTtRzDibsBym2Ofg9 JorWWzlTm7h8tdBINmOVLw mVbci0hvAPH5OXMcR2W3iL Aeb5jwUEryZQUbcHH5pkwc DMscFKMfbjM0uthpHHzaCX OwnAK2nsofEDzhKJVuSmN0 rafyDLllPAScBLO2YPsnk3 32BZL1CJbfLhqtNNhaCBKv bmNvbnRccGduZGVjXHBsYW luXHBsYWluXGYwXGZzMjRc lGeitWylqG1lGrLsUkMkFB mdBK2sBGCxQ3tpaTQzANRy KBMjV0edSdWmwG9ymSybST dbivKjQCYtsyNgbo4qLH9i cGFyfQ== STATEMENT OF ADEQUACY Satisfactory (test code = 2757) Gross assessment was [facility] performed at (test [facility], = 2777) Department of Pathology, [address] [place] [address], Technical component was [facility] performed at ([facility], = 2778) Department of Pathology, [address] [place] [address], Professional component [facility] was performed at ([facility], code = 2779) Department of Pathology, [address] [place], [place] [address], [facility] 17:29:00Medical Cytology Report Case: [id number] Aut horizing Provider: Uriah Childs Collected: 02/15/2019 1226 Ordering Location: [address] Received: 02/15/2019 1529 Service Pathologist: Nereyda Causey MD Specimen: Common Bile Duct, Distal bile duct brushing in CRR COMMON BILE DUCT BRUSHING (CYTOSPINS AND CELL BLOCK): - MILDLY ATYPICAL CELLS PRESENT, FAVOR REACTIVE (SEE COMMENT) Signing Pathologist Direct Phone Line: [phone] signed by Nereyda Causey MD on 02/18/2019 at 5:29 PMFew mildly atypical cells are present and with the history of stent, a reactive process is favored. Clinical correlation is recommended.64141, 82100Cowprvhc, a localized biliary stricture with upstream dilationCOMMON BILE DUCT BONNTVOJ26 mls in cytorich red; 2 cytospins, cell block (collodion bag)Collected: [id number]: [id number].[facility], [facility] of Pathology, [address] [place] [address], [facility], [facility] of Pathology, [address] [place] [address], [facility], Department of Pathology, [address] [place] [address], [place] [address], Jnmehmbk5003-01-14 14:54:00 Test Item Value Reference Range Interpretation Comments Ferritin (test code = 187 ng/mL 5-275 2276-4) ABAD (test code = ABAD) Parking Inspector ID - [place] Lab Interpretation (test Normal code = 17782-2) [facility]2020-[facility] 14:54:00 Test Item Value Reference Range Interpretation Comments FERRITIN (BEAKER) (test code = 361) 187 ng/mL 5-275 Parking Inspector ID - LACOMPREHENSIVE METABOLIC [id number] 14:41:00 Test Item Value Reference Range Interpretation [...] S NOT APPLICABLE FOR DIALYSIS PATIEN TS. Parking Inspector ID - CARLOS CSpecimen slightly ictericHemoglobin and hrnperyinp3881-55-98 12:27:00 Test Item Value Reference Range Interpretation Comments Hemoglobin (test code = 9.0 13.7- 17.5 GM/DL L 786-4) Hematocrit (test code = 29.6 % 40.1-51 L 4544-3) ABAD (test code = ABAD) Parking Inspector ID - [id number] Lab Interpretation (test Abnormal code = 66256-6) [facility] CenterHEMOGLOBIN AND EUATLINDWR0138-30-16 12:27:00 Test Item Value Reference Range Interpretation Comments HEMOGLOBIN (BEAKER) (test code = 9.0 GM/DL 13.7-17.5 L 410) HEMATOCRIT (BEAKER) (test code = 29.6 % 40.1-51.0 L 411) Parking Inspector ID - 6000BASIC METABOLIC BLVCE5822-97-57 11:55:00 Test Item Value Reference Range Interpretation [...] S NOT APPLICABLE FOR DIALYSIS PATIEN TS. Parking Inspector ID - [id number] slightly brvludgYBSZAF6116-96-55 09:47:00 Test Item Value Reference Range Interpretation Comments LIPASE (BEAKER) (test code = 749) 72 U/L 6-51 H Parking Inspector ID - [id number] slightly ictericIRON, TIBC, % SAT. (WITHOUT FERRITIN)2019-02-17 07:14:00 Test Item Value Reference Range Interpretation Comments IRON (BEAKER) (test code = 547) 15.0 ug/dL 40.0-160.0 L TOTAL IRON BINDING CAPACITY 124 ug/dL 250-450 L (BEAKER) (test code = 769) IRON % SATURATION (2) (BEAKER) 12 % 20-55 L (test code = 2590) Parking Inspector ID - SOTERO MHEMOGLOBIN AND OZZMCUHQWX8054-76-46 06:32:00 Test Item Value Reference Range Interpretation Comments HEMOGLOBIN (BEAKER) (test code = 6.8 GM/DL 13.7-17.5 L 410) HEMATOCRIT (BEAKER) (test code = 22.3 % 40.1-51.0 L 411) Parking Inspector ID - [id number]/Free T4 If Uisudrohr4689-19-79 05:53:00 Test Item Value Reference Range Interpretation Comments TSH (test code = 84094-2) 2.31 0.35- 4.94 uIU/mL ABAD (test code = ABAD) Parking Inspector ID - SOTERO M Lab Interpretation (test Normal code = 30280-6) [facility] CenterVitamin B12 and Nawxgq4904-89-12 05:53:00 Test Item Value Reference Range Interpretation Comments Vitamin B12 (test code = 665 pg/mL 795-220 1543-9) Folate (test code = 12.3 ng/mL >=7.0 2284-8) ABAD (test code = ABAD) Parking Inspector ID - SOTERO M Lab Interpretation (test Normal code = 53420-1) [facility] CenterTSH/FREE T4 IF BGVPAWILH6025-90-82 05:53:00 Test Item Value Reference Range Interpretation Comments THYROID STIMULATING HORMONE 2.31 uIU/mL 0.35-4.94 (BEAKER) (test code = 772) Parking Inspector ID - SOTERO MVITAMIN B12 AND [id number] 05:53:00 Test Item Value Reference Range Interpretation Comments VITAMIN B12 (BEAKER) (test code = 665 pg/mL 213-816 774) FOLATE (BEAKER) (test code = 362) 12.3 ng/mL >=7.0 Parking Inspector ID - SOTERO MCBC (HEMOGRAM ONLY)2019-02-17 04:42:00 Test Item Value Reference [...] WBC 0-0 (BEAKER) (test code = 413) [id number] 12:25:00 Test Item Value Reference Range Interpretation Comments LIPASE (BEAKER) (test code = 749) 64 U/L 8-78 Parking Inspector ID - THUAN FHEMOGLOBIN AND [id number] 10:31:00 Test Item Value Reference Range Interpretation Comments HEMOGLOBIN (BEAKER) (test code = 7.2 GM/DL 13.7-17.5 L 410) HEMATOCRIT (BEAKER) (test code = 24.0 % 40.1-51.0 L 411) Parking Inspector ID - [id number], [id number] 09:17:00Reason for exam:->jaundiceFINAL REPORT A fluoroscopic unit was utilized for a procedure performed in the operating room. No interpretation was requested. Please refer to the operative report regarding findings. Please refer to PACS for patient radiation dose information. Signed: Josef Maurer MDReport Verified Date/Time: 02/16/2019 09:17:37 Reading Location: [facility] B[facility] C[facility] Body Reading Room [place] ERCP 2019-02-16 09:17:00Interface, External Ris In - 02/16/2019 9:19 AM CSTFINAL REPORT A fluoroscopic unit was utilized for a procedure performed in the operating room. No interpretation was requested. Please refer to the operative report regarding findings. Please refer to PACS for patient radiationdose information. Signed: Josef Maurer MDReport Verified Date/Time: 02/16/2019 09:17:37 Reading [facility]2019-02-16 07:59:00 Test Item Value [...] WBC 0-0 (BEAKER) (test code = 413) HEPATIC FUNCTION [id number] 05:15:00 Test Item Value Reference Range Interpretation [...] (test code = 23 U/L 6-55 347) Parking Inspector HELIO - [facility]ABOL[facility] [id number] 05:14:00 Test Item Value Reference Range Interpretation [...] S NOT APPLICABLE FOR DIALYSIS PATIEN TS. Parking Inspector ID - SOTERO MPT/[id number] 04:41:00 Test Item Value Reference Range Interpretation [...] is2.5-3.5 for patients wiht mechanical heart valves.PROTHROMBIN TIME/[id number] 04:40:00 Test Item Value Reference Range Interpretation [...] is2.5-3.5 for patients wiht mechanical heart valves.CYTOLOGY [id number] 17:00:00 Test Item Value Reference Range Interpretation Comments Cytology (test code = See Separate Report 1636) [facility] [id number] 17:00:00 Test Item Value Reference Range Interpretation Comments CYTOLOGY RESULT POINTER See Separate Report (BEAKER) (test code = 5819) CBC W/PLT COUNT & AUTO [id number] 12:12:00 Test Item Value Reference Range Interpretation [...] (BEAKER) (test code = 2801) BASIC METABOLIC [id number] 10:22:00 Test Item Value Reference Range Interpretation [...] S NOT APPLICABLE FOR DIALYSIS PATIEN TS. Parking Inspector ID - PARADIS FSpecimen slightly ictericHEPATIC FUNCTION PANEL 2019-02-15 10:22:00 [...] (test code = 29 U/L 6-55 347) Parking Inspector ID - THUAN Álvarez slightly ictericPT/[id number] 06:54:00 Test Item Value Reference Range Interpretation [...] is2.5-3.5 for patients wiht mechanical heart valves.PROTHROMBIN TIME/[id number] 06:53:00 Test Item Value Reference Range Interpretation [...] is2.5-3.5 for patients wiht mechanical heart valves.Manual [id number] 11:17:00 Test Item Value Reference Range Interpretation Comments % Neutros (test code = 87 % 2816) % Lymphs (test code = 3 % 7) % Monos (test code = 6 % [...] = 3438) ABAD (test code = ABAD) Parking Inspector ID - Lorenzo Haleycade comments: Slide comments: Lab Interpretation (test Abnormal code = 16511-1) [facility] W/PLT COUNT & AUTO [id number] 11:17:00 Test Item Value Reference Range Interpretation [...] report due WIDTH (BEAKER) (test to [facility] RBC code = 412) population distribution. [...] CONCENTRATION Adequate (CELLAVISION)(BEAKER) (test code = 3438) Parking Inspector ID - Lorenzo Carr comments: Slide comments:HEPATIC [...] (test code = 40 U/L 6-55 347) Parking Inspector ID - NTPSpecimen slightly ictericBASIC METABOLIC [id number] 10:09:00 Test Item Value Reference Range Interpretation [...] S NOT APPLICABLE FOR DIALYSIS PATIEN TS. Parking Inspector ID - NTPSpecimen slightly ictericPT/[id number] 05:20:00 Test Item Value Reference Range Interpretation [...] is2.5-3.5 for patients wiht mechanical heart valves.PROTHROMBIN TIME/[id number] 05:19:00 Test Item Value Reference Range Interpretation [...] wiht mechanical heart valves.WOUND CULTURE + GRAM [id number] 13:08:00 Test Item Value Reference Interpretation Comments [...] (BEAKER) (test code = cocci in pairs 792659) 4+ Skin floraCOMPREHENSIVE METABOLIC [id number] 04:14:00 Test Item Value Reference Range Interpretation [...] TOTAL (test code = ALKP) COMPREHENSIVE METABOLIC [id number] 04:07:00 Test Item Value Reference Range Interpretation [...] Unit/L 50-136 code = ALKP) CBC W/AUTO [id number] 04:05:00 Test Item Value Reference Range Interpretation [...] = NO DIFF/SCN CRITERIA MDIFF) CBC W/AUTO [id number] 18:44:00 Test Item Value Reference Range Interpretation [...] = NO DIFF/SCN CRITERIA MDIFF) BASIC METABOLIC [id number] 07:26:00 Test Item Value Reference Range Interpretation [...] CA) 7.8 MG/DL 8.5-10.1 L CBC W/AUTO [id number] 07:19:00 Test Item Value Reference Range Interpretation [...] DIFF/SCN CRITERIA MDIFF) - CT ABD PELVIS [id number] 20:03:00 Name: FAVIOLA [place] [facility] : 1990 Age/S: 28 / M [address] Unit #: [id number] Loc: [place] [address] Phys: Natalie Bahena MD Acct: [id number] Dis Date: Status: ADM IN PHONE #: [phone] Exam Date: 09/21/2018 1913 FAX #: Reason: hx of pa ncreatitis, CBD stent, abd pain, melena EXAMS: CPT: [id number] CT ABD PELVIS W/CONT 90406 Dictation location: H37. CT ABDOMEN AND PELVIS WITH IV CONTRAST [...] 1 Signed Report (CONTINUED) Name: FAVIOLA [place] [facility] : 1990 Age/S: 28 / M [address] [facility] Unit #: [id number] Loc: [place] [address] Phys: Natalie Bahena MD Acct: [id number] Dis Date: Status: ADM IN PHONE #: [phone] Exam Date: 09/21/20181912 FAX #: Reason: hx of pancreatitis, CBD stent, abd pain, melena EXAMS: CPT: [id number] CT ABD PELVIS W/CONT 89388 <Continued> Interval mild thickening involving the sigmoid [...] 2 Signed ReportUA RFLX MICR CULT IF [id number] 19:45:00 Test Item Value Reference Range Interpretation [...] culture: Suprapubic PainUA RFLX MICR CULT IF [id number] 19:37:00 Test Item Value Reference Range Interpretation [...] CLEAN CATCHIndication for culture: Suprapubic PainLACTIC ACID [id number] 19:14:00 Test Item Value Reference Range Interpretation Comments LACTIC ACID POC (test code = 0.57 MMOL/L 0.90-1.70 L LACTP) BASIC METABOLIC [id number] 18:25:00 Test Item Value Reference Range Interpretation [...] CA) 8.6 MG/DL 8.5-10.1 N HEPATIC FUNCTION [id number] 18:25:00 Test Item Value Reference Range Interpretation [...] 160 Unit/L 50-136 H code = ALKP) [id number] 18:25:00 Test Item Value Reference Range Interpretation Comments LIPASE (test code = LIP) 164 Unit/L 114-286 N BASIC METABOLIC [id number] 18:22:00 Test Item Value Reference Range Interpretation [...] CA) 8.6 MG/DL 8.5-10.1 N HEPATIC FUNCTION [id number] 18:22:00 Test Item Value Reference Range Interpretation [...] TOTAL (test Unit/L 50-136 code = ALKP) [id number] 18:22:00 Test Item Value Reference Range Interpretation Comments LIPASE (test code = LIP) 164 Unit/L 114-286 N PROTHROMBIN [id number] 18:17:00 Test Item Value Reference Range Interpretation Comments PT PATIENT (test code = PTP) 15.7 SECONDS 9.3-12.9 H INTERNATIONAL NORMAL RATIO 1.36 INR Unit 0.8-1.2 H (test code = INR) THROMBOPLASTIN TIME [id number] 18:17:00 Test Item Value Reference Range Interpretation Comments THROMBOPLASTIN TIME PARTIAL 39.7 SECONDS 26-35 H (test code = PTT) CBC W/O [id number] 18:08:00 Test Item Value Reference Range Interpretation [...] 7.0-9.6 H MPV) - CT ABD PELVIS [id number] 19:34:00 Name: FAVIOLA [place] : 1990 Age/S: 28 / M [address] [address] [place] Unit #: [id number] [place]: [place] [address] Phys: Pola Brush MD Acct: [id number] Dis Date: Status: REG ER PHONE #: [phone] Exam Date: 09/11/2018 6592 FAX #: Reason: abdominal pain EXAMS: CPT: [id number] CT ABD PELVIS W/CONT 10757 EXAM: CT ABDOMEN AND PELVIS WITH IV [...] [place] : 1990 Age/S: 28 / M [address] [place] Unit #: [id number] Loc: [place] [address] Phys: Pola Brush MD Acct: [id number] Dis Date: Status: REG ER PHONE #: [phone] Exam Date: 09/11/2018 1845 FAX #: Reason: abdominal pain EXAMS: CPT: [id number] CT ABD PELVIS W/CONT 53047 <Continued> are unremarkable. Gastrointestinal: No bowel obstruction [...] 2 Signed ReportUA RFLX MICR CULT IF [id number] 19:30:00 Test Item Value Reference Range Interpretation [...] for culture: Dysuria/FrequencyUA RFLX MICR CULT IF [id number] 19:30:00 Test Item Value Reference Range Interpretation [...] URINE: CLEAN CATCHIndication for culture: Dysuria/FrequencyBASIC METABOLIC [id number] 18:14:00 Test Item Value Reference Range Interpretation [...] CA) 8.4 MG/DL 8.5-10.1 L HEPATIC FUNCTION [id number] 18:14:00 Test Item Value Reference Range Interpretation [...] 168 Unit/L 50-136 H code = ALKP) [id number] 18:14:00 Test Item Value Reference Range Interpretation Comments LIPASE (test code = LIP) 260 Unit/L 114-286 N BASIC METABOLIC [id number] 18:06:00 Test Item Value Reference Range Interpretation [...] CA) 8.4 MG/DL 8.5-10.1 L HEPATIC FUNCTION [id number] 18:06:00 Test Item Value Reference Range Interpretation [...] TOTAL (test code Unit/L 50-136 = ALKP) [id number] 18:06:00 Test Item Value Reference Range Interpretation Comments LIPASE (test code = LIP) Unit/L 114-286 CBC W/AUTO [id number] 18:02:00 Test Item Value Reference Range Interpretation [...] code = NO DIFF/SCN CRITERIA MDIFF) PROTHROMBIN [id number] 18:02:00 Test Item Value Reference Range Interpretation Comments PT PATIENT (test code = PTP) 16.2 SECONDS 9.3-12.9 H INTERNATIONAL NORMAL RATIO 1.40 INR Unit 0.8-1.2 H (test code = INR) THROMBOPLASTIN TIME [id number] 18:02:00 Test Item Value Reference Range Interpretation Comments THROMBOPLASTIN TIME PARTIAL 30.7 SECONDS 26-35 N (test code = PTT) BLOOD [id number] 02:01:00 Test Item Value Reference Range Interpretation Comments CULTURE (BEAKER) (test No growth in 5 days code = 1095) BLOOD [id number] 20:01:00 Test Item Value Reference Range Interpretation Comments CULTURE (BEAKER) (test No growth in 5 days code = 1095) CBC W/PLT COUNT & AUTO [id number] 05:36:00 Test Item Value Reference Range Interpretation [...] PERCENT (BEAKER) (test code = 2801) TISSUE [id number] 15:04:00Surgical Pathology Report Case: [id number] Authorizing Provider: Maliha Gotti MD Collected: 08/29/2018 0932 Ordering Location: [place] [address] ICU Received: 08/29/2018 1318 Pathologist: James Stringer MD Specimen: Polyp, Colon - Transverse, taken by yahaira MCNEAL A TRANSVERSE COLON BIOPSY FOR SUSPECTED POLYP:INFLAMMATORY PSEUDOPOLYP. Signing Pathologist Direct Phone Line: [phone] signed by James Stringer MD on 08/30/2018 at 3:04 PMImmunostains for CMV, HSV1, and HSV2 performed on block A1 are negative.03594, 99159, [id number] and postop diagnosis: gastrointestinal hemorrhage, unspecified gastrointestinal hemorrhage type Polyp, colon - tr ansverse Received in formalin labeled with the patient's name, accession number and "polyp, colon - transverse" is a 0.2 cm york soft tissue fragment which is submitted in toto in A1. CG/pl PERFORMED. The interpretation of this case included the use of immunohistochemistry or special stains.BLOCK A1- CMV, HSV1, IYQ2Vnhyggq Slides Examined: In-house known positive controls were evaluated along withthe test tissue. These control slides run alongside of the patients sample show appropriate staining. Internal positive and negative controls when available are evaluated Immunohistochemistry technical testing was performed at [facility], Pathology Laboratory where it was [...] perform high complexity clinical laboratory testing.HEMOGLOBIN AND [id number] 12:44:00 Test Item Value Reference Range Interpretation Comments HEMOGLOBIN (BEAKER) (test code = 7.7 GM/DL 13.7-17.5 L 410) HEMATOCRIT (BEAKER) (test code = 25.1 % 40.1-51.0 L 411) BASIC METABOLIC [id number] 07:28:00 Test Item Value Reference Range Interpretation [...] S NOT APPLICABLE FOR DIALYSIS PATIEN TS. [id number] 07:13:00 Test Item Value Reference Range Interpretation Comments PHOSPHORUS (BEAKER) (test code = 3.7 mg/dL 2.3-4.7 604) [id number] 07:13:00 Test Item Value Reference Range Interpretation Comments MAGNESIUM (BEAKER) (test code = 2.0 mg/dL 1.6-2.6 627) HEPATIC FUNCTION [id number] 07:13:00 Test Item Value Reference Range Interpretation [...] 6-55 347) CBC W/PLT COUNT & AUTO [id number] 05:45:00 Test Item Value Reference Range Interpretation [...] 0-1 PERCENT (BEAKER) (test code = 2801) [id number] 06:28:00 Test Item Value Reference Range Interpretation Comments PHOSPHORUS (BEAKER) (test code = 4.0 mg/dL 2.3-4.7 604) [id number] 06:28:00 Test Item Value Reference Range Interpretation Comments MAGNESIUM (BEAKER) (test code = 1.9 mg/dL 1.6-2.6 627) HEPATIC FUNCTION [id number] 06:28:00 Test Item Value Reference Range Interpretation [...] = 7 U/L 6-55 347) BASIC METABOLIC [id number] 06:28:00 Test Item Value Reference Range Interpretation [...] PATIEN TS. CBC W/PLT COUNT & AUTO [id number] 05:15:00 Test Item Value Reference Range Interpretation [...] (BEAKER) (test code = 2801) HEMOGLOBIN AND [id number] 16:50:00 Test Item Value Reference Range Interpretation Comments HEMOGLOBIN (BEAKER) (test code = 7.8 GM/DL 13.7-17.5 L 410) HEMATOCRIT (BEAKER) (test code = 24.5 % 40.1-51.0 L 411) TROPONIN [id number] 07:07:00 Test Item Value Reference Range Interpretation [...] failure, acidosis, acute neurological disease, and persistent tachyarrhythmia.[id number] 07:04:00 Test Item Value Reference Range Interpretation Comments PHOSPHORUS (BEAKER) (test code = 3.0 mg/dL 2.3-4.7 604) [id number] 07:04:00 Test Item Value Reference Range Interpretation Comments MAGNESIUM (BEAKER) (test code = 1.7 mg/dL 1.6-2.6 627) BASIC METABOLIC [id number] 07:04:00 Test Item Value Reference Range Interpretation [...] APPLICABLE FOR DIALYSIS PATIEN TS. LACTIC ACID, [id number] 06:58:00 Test Item Value Reference Range Interpretation Comments LACTATE BLOOD VENOUS (2) (BEAKER) 0.7 mmol/L 0.5-2.2 (test code = 2872) HEMOGLOBIN AND [id number] 06:44:00 Test Item Value Reference Range Interpretation Comments HEMOGLOBIN (BEAKER) (test code = 8.2 GM/DL 13.7-17.5 L 410) HEMATOCRIT (BEAKER) (test code = 25.9 % 40.1-51.0 L 411) CBC W/PLT COUNT & AUTO [id number] 06:44:00 Test Item Value Reference Range Interpretation [...] PERCENT (BEAKER) (test code = 2801) TROPONIN [id number] 00:41:00 Test Item Value Reference Range Interpretation [...] acute neurological disease, and persistent tachyarrhythmia.HEMOGLOBIN AND [id number] 00:22:00 Test Item Value Reference Range Interpretation Comments HEMOGLOBIN (BEAKER) (test code = 5.9 GM/DL 13.7-17.5 LL 410) HEMATOCRIT (BEAKER) (test code = 18.8 % 40.1-51.0 L 411) RAD, CHEST, 1 VIEW, NON [id number] 21:37:00Reason for exam:->r/o pulm edemaShould this be [...] MDReport Verified Date/Time: 08/27/2018 21:37:05 Reading Location: [address] Consult Reading Room ALYSIS W/ REFLEX URINE [id number] 20:28:00 Test Item Value Reference Range Interpretation [...] Rare SOURCE(BEAKER) (test code = 2795) TROPONIN [id number] 19:29:00 Test Item Value Reference Range Interpretation [...] acute neurological disease, and persistent tachyarrhythmia.COMPREHENSIVE METABOLIC [id number] 19:21:00 Test Item Value Reference Range Interpretation [...] S NOT APPLICABLE FOR DIALYSIS PATIEN TS. [id number] 19:09:00 Test Item Value Reference Range Interpretation Comments PHOSPHORUS (BEAKER) (test code = 3.6 mg/dL 2.3-4.7 604) [id number] 19:09:00 Test Item Value Reference Range Interpretation Comments MAGNESIUM (BEAKER) (test code = 1.8 mg/dL 1.6-2.6 627) LACTIC ACID, [id number] 19:03:00 Test Item Value Reference Range Interpretation Comments LACTATE BLOOD VENOUS (2) (BEAKER) 0.9 mmol/L 0.5-2.2 (test code = 2872) PROTHROMBIN [id number] 18:53:00 Test Item Value Reference Range Interpretation [...] INR is2.5-3.5 for patients wiht mechanical heart valves.[id number] 18:53:00 Test Item Value Reference Range Interpretation Comments FIBRINOGEN LEVEL (BEAKER) (test 418 mg/dl 225-434 code = 658) CBC W/PLT COUNT & AUTO [id number] 18:48:00 Test Item Value Reference Range Interpretation [...] (BEAKER) (test code = 2801) HEMOGLOBIN AND [id number] 18:44:00 Test Item Value Reference Range Interpretation Comments HEMOGLOBIN (BEAKER) (test code = 6.3 GM/DL 13.7-17.5 L 410) HEMATOCRIT (BEAKER) (test code = 20.6 % 40.1-51.0 L 411) CBC W/PLT COUNT & AUTO [id number] 07:00:00 Test Item Value Reference Range Interpretation [...] PERCENT (BEAKER) (test code = 2801) CALCIUM, [id number] 06:20:00 Test Item Value Reference Range Interpretation Comments CALCIUM IONIZED (BEAKER) (test 1.01 mmol/L 1.12-1.27 L code = 698) PH, BLOOD (BEAKER) (test code = 7.50 1810) COMPREHENSIVE METABOLIC [id number] 06:16:00 Test Item Value Reference Range Interpretation [...] NOT APPLICABLE FOR DIALYSIS PATIEN TS. BLOOD [id number] 20:01:00 Test Item Value Reference Range Interpretation Comments CULTURE (BEAKER) (test No growth in 5 days code = 1095) [id number] 06:17:00 Test Item Value Reference Range Interpretation Comments PHOSPHORUS (BEAKER) (test code = 3.5 mg/dL 2.3-4.7 604) [id number] 06:17:00 Test Item Value Reference Range Interpretation Comments MAGNESIUM (BEAKER) (test code = 1.3 mg/dL 1.6-2.6 L 627) BASIC METABOLIC [id number] 06:17:00 Test Item Value Reference Range Interpretation [...] NOT APPLICABLE FOR DIALYSIS PATIEN TS. CALCIUM, [id number] 05:40:00 Test Item Value Reference Range Interpretation Comments CALCIUM IONIZED (BEAKER) (test 1.02 mmol/L 1.12-1.27 L code = 698) PH, BLOOD (BEAKER) (test code = 7.50 1810) CBC W/PLT COUNT & AUTO [id number] 05:32:00 Test Item Value Reference Range Interpretation [...] (BEAKER) (test code = 2801) COMPREHENSIVE METABOLIC [id number] 07:10:00 Test Item Value Reference Range Interpretation [...] S NOT APPLICABLE FOR DIALYSIS PATIEN TS. [id number] 06:50:00 Test Item Value Reference Range Interpretation Comments MAGNESIUM (BEAKER) (test code = 1.0 mg/dL 1.6-2.6 LL 627) COMPREHENSIVE METABOLIC [id number] 06:33:00 Test Item Value Reference Range Interpretation [...] S NOT APPLICABLE FOR DIALYSIS PATIEN TS. [id number] 06:31:00 Test Item Value Reference Range Interpretation Comments PHOSPHORUS (BEAKER) (test code = 3.3 mg/dL 2.3-4.7 604) CBC W/PLT COUNT & AUTO [id number] 06:23:00 Test Item Value Reference Range Interpretation [...] (BEAKER) (test code = 2801) LACTIC ACID, [id number] 06:22:00 Test Item Value Reference Range Interpretation Comments LACTATE BLOOD VENOUS (2) (BEAKER) 0.8 mmol/L 0.5-2.2 (test code = 2872) CALCIUM, [id number] 06:18:00 Test Item Value Reference Range Interpretation Comments CALCIUM IONIZED (BEAKER) (test 1.01 mmol/L 1.12-1.27 L code = 698) PH, BLOOD (BEAKER) (test code = 7.46 1810) U/S, ABDOMINAL, [id number] 16:51:00Abdomen limited area? Add comment if clarification [...] seen.3. No other significant abnormality. Signed: Perez Huerta MDReport Verified Date/Time: 07/28/2018 16:51:39 Reading Location: [address] Consult Reading Room [id number] 06:56:00 Test Item Value Reference Range Interpretation Comments PHOSPHORUS (BEAKER) (test code = 2.6 mg/dL 2.3-4.7 604) [id number] 06:56:00 Test Item Value Reference Range Interpretation Comments MAGNESIUM (BEAKER) (test code = 1.5 mg/dL 1.6-2.6 L 627) BASIC METABOLIC [id number] 06:56:00 Test Item Value Reference Range Interpretation [...] APPLICABLE FOR DIALYSIS PATIEN TS. LACTIC ACID, [id number] 06:49:00 Test Item Value Reference Range Interpretation Comments LACTATE BLOOD VENOUS (2) (BEAKER) 0.7 mmol/L 0.5-2.2 (test code = 2872) CBC W/PLT COUNT & AUTO [id number] 06:31:00 Test Item Value Reference Range Interpretation [...] 0-1 PERCENT (BEAKER) (test code = 2801) [id number] 17:59:00 Test Item Value Reference Range Interpretation Comments PHOSPHORUS (BEAKER) (test code = 3.4 mg/dL 2.3-4.7 604) Check Serum Phosphorus level 4 hours after IV phosphorus replacement or 8 hours after PO replacementcompleted.[id number] 17:59:00 Test Item Value Reference Range Interpretation Comments MAGNESIUM (BEAKER) (test code = 1.7 mg/dL 1.6-2.6 627) Check Serum Phosphorus level 4 hours after IV phosphorus replacement or 8 hours after PO replacementcompleted.[id number] 04:50:00 Test Item Value Reference Range Interpretation Comments PHOSPHORUS (BEAKER) (test code = 1.8 mg/dL 2.3-4.7 L 604) [id number] 04:50:00 Test Item Value Reference Range Interpretation Comments MAGNESIUM (BEAKER) (test code = 1.4 mg/dL 1.6-2.6 L 627) BASIC METABOLIC [id number] 04:50:00 Test Item Value Reference Range Interpretation [...] PATIEN TS. CBC W/PLT COUNT & AUTO [id number] 04:45:00 Test Item Value Reference Range Interpretation [...] PERCENT (BEAKER) (test code = 2801) FL, [id number] 22:28:00Reason for exam:->bile duct stent removalFINAL REPORT Examination: ERCP 4 fluoroscopic spot views were obtained during the procedure by the ordering service. Images are nondiagnostic as no radiologist was present at the time of imaging. Fluoroscopic time was 49.6 seconds. Please see the procedure report for details. Signed: Rosalia Golden MDReport Verified Date/Time: 07/26/2018 22:28:43 Reading Location: [address] Reading Room POCT-GLUCOSE [id number] 20:43:00 Test Item Value Reference Range Interpretation Comments POC-GLUCOSE METER 146 mg/dL 70-110 H TESTED AT [facility] 67[address] ([facility] [place]) (test code = [facility] 1538) [address] RAPID STREP A [id number] 18:22:00 Test Item Value Reference Range Interpretation Comments STREP A ANTIGEN (BEAKER) (test code Negative = 556) COMPREHENSIVE METABOLIC [id number] 17:37:00 Test Item Value Reference Range Interpretation [...] PATIEN TS. CBC W/PLT COUNT & AUTO [id number] 17:16:00 Test Item Value Reference Range Interpretation [...] PERCENT (BEAKER) (test code = 2801) POCT-GLUCOSE [id number] 12:06:00 Test Item Value Reference Range Interpretation Comments POC-GLUCOSE METER 132 mg/dL 70-110 H TESTED AT [facility] [address] (BEAKER) (test code = [facility] 1538) [address] POCT-GLUCOSE [id number] 08:57:00 Test Item Value Reference Range Interpretation Comments POC-GLUCOSE METER 80 mg/dL 70-110 TESTED AT [facility] 67[address] (BEAKER) (test code = [facility] [address] 1538) BASIC METABOLIC [id number] 06:35:00 Test Item Value Reference Range Interpretation [...] NOT APPLICABLE FOR DIALYSIS PATIEN TS. POCT-GLUCOSE [id number] 22:36:00 Test Item Value Reference Range Interpretation Comments POC-GLUCOSE METER 72 mg/dL 70-110 TESTED AT [facility] [address] ([facility] [place]) (test code = [facility] [address] 1538) POCT-GLUCOSE [id number] 12:21:00 Test Item Value Reference Range Interpretation Comments POC-GLUCOSE METER 82 mg/dL 70-110 TESTED AT [place] [id number] ([facility] [place]) (test code = [facility] [address] 1538) BASIC METABOLIC [id number] 09:30:00 Test Item Value Reference Range Interpretation [...] 8.4-10.2 L (test code = 697) EGFR ([facility]) (test 156 mL/min/1.73 ESTIM ATED GFR IS code = 1092) sq m NOT ACCURATE CREATININE CLEARANCE IN PREDICTING GLOMERULAR FILTRATION RATE . ESTIMATED GFR I S NOT APPLICABLE FOR DIALYSIS PATIEN TS. POCT-GLUCOSE [id number] 08:42:00 Test Item Value Reference Range Interpretation Comments POC-GLUCOSE METER 85 mg/dL 70-110 TESTED AT [place] [address] ([facility]) (test code = [facility] [address] 1538) POCT-GLUCOSE [id number] 21:33:00 Test Item Value Reference Range Interpretation Comments POC-GLUCOSE METER 106 mg/dL 70-110 TESTED AT [place] [address] ([facility]) (test code = [facility] 1538) [address] POCT-GLUCOSE [id number] 17:42:00 Test Item Value Reference Range Interpretation Comments POC-GLUCOSE METER 95 mg/dL 70-110 TESTED AT [place] [address] ([facility]) (test code = [facility] [address] 1538) [id number] 14:42:00 Test Item Value Reference Range Interpretation Comments POTASSIUM ([facility]) 3.7 meq/L 3.5-5.1 Specimen slightly (test code = 379) hemolyzed Check Serum Potassium level 2 hours after oral potassium replacement completed or 30 min after intravenous potassium replacement.POCT-GLUCOSE [id number] 11:45:00 Test Item Value Reference Range Interpretation Comments POC-GLUCOSE METER 151 mg/dL 70-110 H TESTED AT [place] [address] ([facility]) (test code = [facility] 1538) [address] POCT-GLUCOSE [id number] 09:45:00 Test Item Value Reference Range Interpretation Comments POC-GLUCOSE METER 127 mg/dL 70-110 H TESTED AT [place] [address] ([facility]) (test code = [facility] 1538) [address] BLOOD [id number] 08:00:00 Test Item Value Reference Range Interpretation Comments CULTURE (BEAKER) (test No growth in 5 days code = 1095) BLOOD [id number] 08:00:00 Test Item Value Reference Range Interpretation Comments CULTURE (BEAKER) (test No growth in 5 days code = 1095) BASIC METABOLIC [id number] 06:48:00 Test Item Value Reference Range Interpretation [...] S NOT APPLICABLE FOR DIALYSIS PATIEN TS. [id number] 06:46:00 Test Item Value Reference Range Interpretation Comments PHOSPHORUS (BEAKER) (test code = 3.5 mg/dL 2.3-4.7 604) [id number] 06:46:00 Test Item Value Reference Range Interpretation Comments MAGNESIUM (BEAKER) (test code = 1.7 mg/dL 1.6-2.6 627) CALCIUM, [id number] 06:45:00 Test Item Value Reference Range Interpretation Comments CALCIUM IONIZED (BEAKER) (test 1.00 mmol/L 1.12-1.27 L code = 698) PH, BLOOD (BEAKER) (test code = 7.52 1810) POCT-GLUCOSE [id number] 21:56:00 Test Item Value Reference Range Interpretation Comments POC-GLUCOSE METER 112 mg/dL 70-110 H TESTED AT [facility] 67[address] (BEAKER) (test code = [facility] 1538) [address] POCT-GLUCOSE [id number] 17:46:00 Test Item Value Reference Range Interpretation Comments POC-GLUCOSE METER 86 mg/dL 70-110 TESTED AT [facility] [address] ([facility] [place]) (test code = [facility] [address] 1538) POCT-GLUCOSE [id number] 11:20:00 Test Item Value Reference Range Interpretation Comments POC-GLUCOSE METER 164 mg/dL 70-110 H TESTED AT [place] [address] ([facility] [place]) (test code = [facility] 1538) [address] POCT-GLUCOSE [id number] 08:57:00 Test Item Value Reference Range Interpretation Comments POC-GLUCOSE METER 88 mg/dL 70-110 TESTED AT [place] [address] ([facility] [place]) (test code = [facility] [address] 1538) CALCIUM, [id number] 05:14:00 Test Item Value Reference Range Interpretation Comments CALCIUM IONIZED (BEAKER) (test 1.12 mmol/L 1.12-1.27 code = 698) PH, BLOOD (BEAKER) (test code = 7.43 1810) BASIC METABOLIC [id number] 04:59:00 Test Item Value Reference Range Interpretation [...] S NOT APPLICABLE FOR DIALYSIS PATIEN TS. [id number] 04:57:00 Test Item Value Reference Range Interpretation Comments MAGNESIUM (BEAKER) (test code = 1.8 mg/dL 1.6-2.6 627) [id number] 04:56:00 Test Item Value Reference Range Interpretation Comments PHOSPHORUS (BEAKER) (test code = 3.4 mg/dL 2.3-4.7 604) [id number] 04:54:00 Test Item Value Reference Range Interpretation [...] is2.5-3.5 for patients wiht mechanical heart valves.PROTHROMBIN TIME/[id number] 04:52:00 Test Item Value Reference Range Interpretation [...] mechanical heart valves.CBC W/PLT COUNT & AUTO [id number] 04:47:00 Test Item Value Reference Range Interpretation [...] % 0-1 PERCENT (BEAKER) (test code = 0124) POCT-GLUCOSE [id number] 22:08:00 Test Item Value Reference Range Interpretation Comments POC-GLUCOSE METER 133 mg/dL 70-110 H TESTED AT [facility] 67[address] (BEAKER) (test code = [facility]MO[facility] 1538) [address] POCT-GLUCOSE [id number] 18:34:00 Test Item Value Reference Range Interpretation Comments POC-GLUCOSE METER 151 mg/dL 70-110 H TESTED AT [facility] 67 ([facility]) (test code = [place] 1538) [address] POCT-GLUCOSE [id number] 12:29:00 Test Item Value Reference Range Interpretation Comments POC-GLUCOSE METER 124 mg/dL 70-110 H TESTED AT [place] [address] ([facility]) (test code = [place] 1538) [address] RAD, CHEST, 1 VIEW, NON [id number] 10:57:00Reason for exam:->SOBShould this be performed at [...] MDReport Verified Date/Time: 07/15/2018 10:57:23 Reading Location: [facility] Radiology Reading Room C. DIFFICILE GDH [id number] 10:08:00 Test Item Value Reference Range Interpretation Comments CDT TOXIN (test code Negative Negative = 9516012065) CDT GDH ANTIGEN (test Negative Negative No ind ication of code = 3406673146) Clostridi um difficile infection and n o colonization. Discontinue ent starla isolation and t herapy. Testing performed by [employer] Rapid Cassette Assay. For GDH, published sensitivity of the assay is 98.7% compared to cytotoxicity testing. For Toxin AB, published sensitivity is 87.8% and specificity 99.4% compared to cytotoxicity testing.Verification of kit performance was done by the [facility] Microbiology Lab prior to clinical use.POCT-GLUCOSE [id number] 08:57:00 Test Item Value Reference Range Interpretation Comments POC-GLUCOSE METER 159 mg/dL 70-110 H TESTED AT [facility] 67 ([facility]) (test code = [place] 1538) [address] BLOOD [id number] 08:01:00 Test Item Value Reference Range Interpretation Comments CULTURE (BEAKER) (test No growth in 5 days code = 1095) BLOOD [id number] 08:01:00 Test Item Value Reference Range Interpretation Comments CULTURE (BEAKER) (test No growth in 5 days code = 1095) BASIC METABOLIC [id number] 04:49:00 Test Item Value Reference Range Interpretation [...] S NOT APPLICABLE FOR DIALYSIS PATIEN TS. [id number] 04:29:00 Test Item Value Reference Range Interpretation Comments PHOSPHORUS (BEAKER) (test code = 2.7 mg/dL 2.3-4.7 604) [id number] 04:29:00 Test Item Value Reference Range Interpretation Comments MAGNESIUM (BEAKER) (test code = 2.2 mg/dL 1.6-2.6 627) CBC W/PLT COUNT & AUTO [id number] 04:14:00 Test Item Value Reference Range Interpretation [...] PERCENT (BEAKER) (test code = 2801) CALCIUM, [id number] 03:58:00 Test Item Value Reference Range Interpretation Comments CALCIUM IONIZED (BEAKER) (test 1.11 mmol/L 1.12-1.27 L code = 698) PH, BLOOD (BEAKER) (test code = 7.41 1810) POCT-GLUCOSE [id number] 23:20:00 Test Item Value Reference Range Interpretation Comments POC-GLUCOSE METER 208 mg/dL 70-110 H TESTED AT [facility] 6720 (BEAKER) (test code = [place] 1538) [address] BASIC METABOLIC [id number] 18:01:00 Test Item Value Reference Range Interpretation [...] S NOT APPLICABLE FOR DIALYSIS PATIEN TS. [id number] 18:00:00 Test Item Value Reference Range Interpretation Comments TRIGLYCERIDES (BEAKER) (test code = 125 mg/dL 540) TRIGLYCERIDE REFERENCE RANGELow Risk <150Borderline Risk 150-199High Risk 200-499Very High Risk>=[id number] 18:00:00 Test Item Value Reference Range Interpretation Comments MAGNESIUM (BEAKER) (test code = 1.6 mg/dL 1.6-2.6 627) CALCIUM, [id number] 17:46:00 Test Item Value Reference Range Interpretation Comments CALCIUM IONIZED (BEAKER) (test 1.13 mmol/L 1.12-1.27 code = 698) PH, BLOOD (BEAKER) (test code = 7.41 1810) POCT-GLUCOSE [id number] 17:45:00 Test Item Value Reference Range Interpretation Comments POC-GLUCOSE METER 173 mg/dL 70-110 H TESTED AT [facility] 6720 (BEAKER) (test code = [place] 1538) [address] POCT-GLUCOSE [id number] 11:46:00 Test Item Value Reference Range Interpretation Comments POC-GLUCOSE METER 163 mg/dL 70-110 H TESTED AT [facility] 6720 (BEAKER) (test code = [place] 1538) [address] BASIC METABOLIC [id number] 09:43:00 Test Item Value Reference Range Interpretation [...] APPLICABLE FOR DIALYSIS PATIEN TS. HEPATIC FUNCTION [id number] 09:43:00 Test Item Value Reference Range Interpretation [...] = < U/L 6-55 L 347) CALCIUM, [id number] 09:39:00 Test Item Value Reference Range Interpretation Comments CALCIUM IONIZED (BEAKER) (test 1.07 mmol/L 1.12-1.27 L code = 698) PH, BLOOD (BEAKER) (test code = 7.44 1810) [id number] 09:26:00 Test Item Value Reference Range Interpretation Comments PHOSPHORUS (BEAKER) (test code = 2.3 mg/dL 2.3-4.7 604) [id number] 09:26:00 Test Item Value Reference Range Interpretation Comments MAGNESIUM (BEAKER) (test code = 1.2 mg/dL 1.6-2.6 L 627) CBC W/PLT COUNT & AUTO [id number] 09:07:00 Test Item Value Reference Range Interpretation [...] PERCENT (BEAKER) (test code = 2801) POCT-GLUCOSE [id number] 06:10:00 Test Item Value Reference Range Interpretation Comments POC-GLUCOSE METER 170 mg/dL 70-110 H TESTED AT [facility] 6720 ([facility] (test code = CHANTE Mohamud [facility] 1538) [address] POCT-GLUCOSE [id number] 23:12:00 Test Item Value Reference Range Interpretation Comments POC-GLUCOSE METER 200 mg/dL 70-110 H TESTED AT [facility] 6720 ([facility]) (test code = [facility] 1538) [address] POCT-GLUCOSE [id number] 18:28:00 Test Item Value Reference Range Interpretation Comments POC-GLUCOSE METER 153 mg/dL 70-110 H TESTED AT [facility] 6720 ([facility]) (test code = [facility] 1538) [address] RAD, CHEST, 1 VIEW, NON [id number] 17:19:00Reason for exam:->post central lineShould this be [...] the right atrium withno pneumothorax. Signed: Perez Huerta MDReport Verified Date/Time: 07/13/2018 17:19:17 Reading Location: [address] Ortho Consult Reading Room POCT- GLUCOSE [id number] 11:45:00 Test Item Value Reference Range Interpretation Comments POC-GLUCOSE METER 214 mg/dL 70-110 H TESTED AT [place] [address] ([facility]) (test code = [place] 1538) [address] CT, [id number] 09:34:00NO PO or IV contrastFINAL REPORT CT [...] whichcould be related to an enteritis. Signed: Peerz Huertaort Verified Date/Time: 07/13/2018 09:34:48 Reading Location: [facility] C013X Ortho Consult Reading Room POCT-GLUCOSE [id number] 06:40:00 Test Item Value Reference Range Interpretation Comments POC-GLUCOSE METER 189 mg/dL 70-110 H TESTED AT [place] [address] ([facility]) (test code = [place] 1538) [address] RAD, CHEST, 1 VIEW, NON [id number] 01:21:00Reason for exam:->hypoxia, feverShould this be performed [...] left upper quadrant pigtail catheter. Signed: Meghan Atkins MDReport Verified Date/Time: 07/13/2018 01:21:43 Reading Location: [address] Reading Room RAD, CHEST, 1 VIEW, NON [id number] 00:42:00Reason for exam:- >tachycardiaShould this be performed [...] the left upper quadrant. Signed: Lu Darden MDReport Verified Date/Time: 07/13/2018 00:42:23 POCT-GLUCOSE METER 2018-07-12 23:31:00 Test Item Value Reference Range Interpretation Comments POC-GLUCOSE METER 139 mg/dL 70-110 H TESTED AT [place] [address] ([facility]) (test code = CHANTE Mohamud [facility] 1538) [address] POCT-GLUCOSE [id number] 18:37:00 Test Item Value Reference Range Interpretation Comments POC-GLUCOSE METER 108 mg/dL 70-110 TESTED AT [place] [address] ([facility]) (test code = CHANTE Mohamud [facility] 1538) [address] LACTIC ACID, [id number] 17:04:00 Test Item Value Reference Range Interpretation Comments LACTATE BLOOD VENOUS (2) ([facility]) 0.7 mmol/L 0.5-2.2 (test code = 2872) POCT-GLUCOSE [id number] 13:25:00 Test Item Value Reference Range Interpretation Comments POC-GLUCOSE METER 129 mg/dL 70-110 H TESTED AT [place] [address] ([facility]) (test code = CHANTE Mohamud [facility] 1538) [address] POCT-GLUCOSE [id number] 10:27:00 Test Item Value Reference Range Interpretation Comments POC-GLUCOSE METER 109 mg/dL 70-110 TESTED AT [place] [address] ([facility]) (test code = [place] 1538) [address] LACTIC ACID, [id number] 07:03:00 Test Item Value Reference Range Interpretation Comments LACTATE BLOOD VENOUS 0.9 mmol/L 0.5-2.2 Specime n slightly (2) ([facility]) (test hemolyzed code = 2872) RAD, ABDOMEN/KUB, 1 VIEW [id number] 02:12:00Reason for exam:->UPRIGHT assess for perf; abdomoinal [...] Darden Verified Date/Time: 07/12/2018 02:12:57 POCT-LACTIC ACID, [id number] 02:11:00 Test Item Value Reference Range Interpretation Comments POC-LACTIC ACID, 1.5 mmol/L 0.9-1.7 TESTED AT [place] [address] VENOUS ([facility]) (test [facility] code = 2805) [address] [id number] 02:11:00 Test Item Value Reference Range Interpretation Comments POC-GLUCOSE ([facility]) 106 mg/dL 70-110 TESTED AT [place] [address] (test code = 1855) [place] [address] POCT-CALCIUM [id number] 02:11:00 Test Item Value Reference Range Interpretation Comments POC-CALCIUM IONIZED 1.15 mmol/L 1.12-1.27 TESTED A T [place] [address] ([facility]) (test [facility] = [facility] [place] 1536) [address] [id number] 02:11:00 Test Item Value Reference Range Interpretation Comments POC-HEMATOCRIT 37 % 40-50 L TESTED AT [place] [address] (BEAKER) (test code = CHANTE Mohamud [facility] [address] 1857) [id number] 02:11:00 Test Item Value Reference Range Interpretation Comments POC-HEMOGLOBIN 12.6 g/dL 13.0-16.8 L TESTED AT [place] [address] (BEAKER) (test code [facility] = 1856) [address]KTKFPI AT [place] [address] [facility]EN [facility] [address] POCT-BLOOD GASES, [id number] 02:10:00 Test Item Value Reference Range Interpretation Comments TEMP, CELSIUS-POC 38.4 (BEAKER) (test code = 1834) FIO2-POC (BEAKER) 21 TESTED AT [place] [address] (test code = 1835) [facility] [address] PH, VENOUS-POC 7.362 7.320-7.420 (BEAKER) (test code [...] -2.0-3.0 VENOUS-POC (BEAKER) (test code = 1847) [id number] 02:10:00 Test Item Value Reference Range Interpretation Comments POC-SODIUM (BEAKER) 139 meq/L 135-148 TESTED A T [place] [address] (test code = 1542) [facility] [place] [address] [id number] 02:10:00 Test Item Value Reference Range Interpretation Comments POC-POTASSIUM 3.7 meq/L 3.6-5.5 TESTED AT [place] [address] (BEAKER) (test code [facility] [address] = 1540) HEPATIC FUNCTION [id number] 02:04:00 Test Item Value Reference Range Interpretation [...] = 8 U/L 6-55 347) BASIC METABOLIC [id number] 02:04:00 Test Item Value Reference Range Interpretation [...] PATIEN TS. CBC W/PLT COUNT & AUTO [id number] 02:03:00 Test Item Value Reference Range Interpretation [...] PERCENT (BEAKER) (test code = 2801) POCT-GLUCOSE [id number] 00:17:00 Test Item Value Reference Range Interpretation Comments POC-GLUCOSE METER 137 mg/dL 70-110 H TESTED AT [place] [address] ([facility]) (test code = [place] 1538) [address] POCT-GLUCOSE [id number] 18:14:00 Test Item Value Reference Range Interpretation Comments POC-GLUCOSE METER 106 mg/dL 70-110 TESTED AT [place] [address] ([facility]) (test code = CHANTE [place] 1538) [address] VANCOMYCIN LEVEL, [id number] 14:20:00 Test Item Value Reference Range Interpretation Comments VANCOMYCIN TROUGH (BEAKER) (test 7.1 ug/mL 10.0-20.0 L code = 522) If vancomycin trough level > 20 mcg/mL, hold next vancomycin dose, and contact MD and pharmacist.POCT-GLUCOSE [id number] 13:10:00 Test Item Value Reference Range Interpretation Comments POC-GLUCOSE METER 155 mg/dL 70-110 H TESTED AT [place] [address] ([facility]) (test code = CHANTE Mohamud [facility] 1538) [address] HEPATIC FUNCTION [id number] 06:51:00 Test Item Value Reference Range Interpretation [...] = 11 U/L 6-55 347) BASIC METABOLIC [id number] 06:51:00 Test Item Value Reference Range Interpretation [...] PATIEN TS. CBC W/PLT COUNT & AUTO [id number] 05:32:00 Test Item Value Reference Range Interpretation [...] 0-1 PERCENT (BEAKER) (test code = 2801) [id number] 11:08:00 Test Item Value Reference Range Interpretation Comments PARTIAL THROMBOPLASTIN TIME 47.0 seconds 22.5-36.0 H (BEAKER) (test code = 760) PROTHROMBIN [id number] 11:07:00 Test Item Value Reference Range Interpretation [...] for patients wiht mechanical heart valves.HEPATIC FUNCTION [id number] 01:46:00 Test Item Value Reference Range Interpretation [...] = 16 U/L 6-55 347) BASIC METABOLIC [id number] 01:46:00 Test Item Value Reference Range Interpretation [...] PATIEN TS. CBC W/PLT COUNT & AUTO [id number] 01:19:00 Test Item Value Reference Range Interpretation [...] (BEAKER) (test code = 2801) BETA-2 GLYCOPROTEIN [id number] 08:02:00 Test Item Value Reference Range Interpretation Comments B2 GLYCOPROTEIN Refer to individual AUTOVERIFICATION COMPONENT B2-Glycoprotein (test code = 2557) IgG, IgM and IgA results. [id number] 07:34:00 Test Item Value Reference Range Interpretation Comments MAGNESIUM (BEAKER) (test code = 1.6 mg/dL 1.6-2.6 627) BASIC METABOLIC [id number] 07:34:00 Test Item Value Reference Range Interpretation [...] APPLICABLE FOR DIALYSIS PATIEN TS. HEPATIC FUNCTION [id number] 07:34:00 Test Item Value Reference Range Interpretation [...] (test code = 41 U/L 6-55 347) [id number] 07:23:00 Test Item Value Reference Range Interpretation [...] 2801) LUPUS ANTICOAGULANT SCREEN WITH REFLEX TO [id number] 09:29:00 Test Item Value Reference Range Interpretation Comments DRVV SCREEN RATIO 1.39 <1.20 H (BEAKER) (test code = 2707) DRVV CONFIRM RATIO 1.21 (test code = 2709) DRVV INTERPRETATION Positive screen for (BEAKER) (test code = Lupus Anticoagulant 5845) with hexagonal phospholipid confirmation. Suggest repeat testing in 12 weeks and when patient not receiving anticoagulant therapy. PROTIME (BEAKER) (test 19.6 seconds 11.7-14.7 H code = 759) INR (BEAKER) (test code 1.7 <=5.9 = 370) PARTIAL THROMBOPLASTIN 57.5 seconds 22.5-36.0 H TIME (BEAKER) (test code = 760) PTT-LA (BEAKER) (test 61.5 32.0-41.8 H code = 6966873599) [id number] Christy Smith MD (BEAKER) (test code = (electronic signature) 2610) [id number] 08:06:00 Test Item Value Reference Range Interpretation Comments MAGNESIUM (BEAKER) (test code = 1.7 mg/dL 1.6-2.6 627) BASIC METABOLIC [id number] 08:06:00 Test Item Value Reference Range Interpretation [...] APPLICABLE FOR DIALYSIS PATIEN TS. HEPATIC FUNCTION [id number] 08:06:00 Test Item Value Reference Range Interpretation [...] 6-55 347) CBC W/PLT COUNT & AUTO [id number] 07:58:00 Test Item Value Reference Range Interpretation [...] PERCENT (BEAKER) (test code = 2801) PROTHROMBIN [id number] 07:26:00 Test Item Value Reference Range Interpretation Comments PROTIME (BEAKER) (test code = 14.5 seconds 11.7-14.7 759) INR (BEAKER) (test code = 370) 1.2 <=5.9 RECOMMENDED COUMADIN/WARFARIN INR THERAPY RANGESSTANDARD DOSE: 2.0 - 3.0 Includes: PROPHYLAXIS forvenous thrombosis, systemic embolization; TREATMENT for venous thrombosis and/or pulmonary embolus.HIGH RISK: Target INR is 2.5-3.5 for patients with mechanical heart valves.[id number] 07:26:00 Test Item Value Reference Range Interpretation [...] 2.5-3.5 for patients with mechanical heart valves.HEXAGONAL [id number] 14:07:00 Test Item Value Reference Range Interpretation Comments HEXAGONAL PHOSPHOLIPID (BEAKER) Positive (test code = 1790) 1:1 MIXING STUDY, [id number] 09:07:00 Test Item Value Reference Range Interpretation Comments PROTIME (BEAKER) (test code = 19.6 seconds 11.7-14.7 H 759) PARTIAL THROMBOPLASTIN TIME 57.5 seconds 22.5-36.0 H (BEAKER) (test code = 760) PT 1/1 MIX (BEAKER) (test code = 14.4 SECS 11.7-14.7 1595) PTT 1/1 MIX (BEAKER) (test code 41.9 SECS 22.5-36.0 H = 1596) [id number] 07:05:00 Test Item Value Reference Range Interpretation [...] 2.5-3.5 for patients with mechanical heart valves.PROTHROMBIN TIME/[id number] 07:04:00 Test Item Value Reference Range Interpretation Comments PROTIME (BEAKER) (test code = 16.9 seconds 11.7-14.7 H 759) INR (BEAKER) (test code = 370) 1.4 <=5.9 RECOMMENDED COUMADIN/WARFARIN INR THERAPY RANGESSTANDARD DOSE: 2.0 - 3.0 Includes: PROPHYLAXIS forvenous thrombosis, systemic embolization; TREATMENT for venous thrombosis and/or pulmonary embolus.HIGH RISK: Target INR is 2.5-3.5 for patients with mechanical heart valves.[id number] 06:49:00 Test Item Value Reference Range Interpretation Comments MAGNESIUM (BEAKER) (test code = 1.7 mg/dL 1.6-2.6 627) BASIC METABOLIC [id number] 06:49:00 Test Item Value Reference Range Interpretation [...] APPLICABLE FOR DIALYSIS PATIEN TS. HEPATIC FUNCTION [id number] 06:49:00 Test Item Value Reference Range Interpretation [...] 6-55 347) CBC W/PLT COUNT & AUTO [id number] 06:36:00 Test Item Value Reference Range Interpretation [...] code = 2801) CARDIOLIPIN ANTIBODIES, IGG AND [id number] 06:24:00 Test Item Value Reference Range Interpretation Comments ANTICARDIOLIPIN IGG ANTIBODY (BEAKER) < GPL <20.0 (test code = 712) ANTICARDIOLIPIN IGM ANTIBODY (BEAKER) 0.2 MPL <20.0 (test code = 713) Anticardiolipin IgG Result Interpretation: <20.0 GPL Normal>/= 20.0 GPL PositiveAnticardiolipin IgM Result Interpretation: <20.0 MPL Normal>/= 20.0 MPL PositiveTHROMBIN [id number] 13:45:00 Test Item Value Reference Range Interpretation Comments THROMBIN TIME (BEAKER) (test code = 17.2 secs 13.8-20.0 550) [id number] 12:46:00 Test Item Value Reference Range Interpretation Comments FIBRINOGEN LEVEL (BEAKER) (test 762 mg/dl 225-434 H code = 658) [id number] 10:48:00 Test Item Value Reference Range Interpretation Comments MAGNESIUM (BEAKER) (test code = 1.7 mg/dL 1.6-2.6 627) BASIC METABOLIC [id number] 10:48:00 Test Item Value Reference Range Interpretation [...] APPLICABLE FOR DIALYSIS PATIEN TS. HEPATIC FUNCTION [id number] 10:48:00 Test Item Value Reference Range Interpretation [...] (test code = 50 U/L 6-55 347) [id number] 06:40:00 Test Item Value Reference Range Interpretation [...] 2.5-3.5 for patients with mechanical heart valves.PROTHROMBIN TIME/[id number] 06:39:00 Test Item Value Reference Range Interpretation [...] 0-1 PERCENT (BEAKER) (test code = 2801) [id number] 06:48:00 Test Item Value Reference Range Interpretation Comments MAGNESIUM (BEAKER) (test code = 1.9 mg/dL 1.6-2.6 627) BASIC METABOLIC [id number] 06:48:00 Test Item Value Reference Range Interpretation [...] APPLICABLE FOR DIALYSIS PATIEN TS. HEPATIC FUNCTION [id number] 06:48:00 Test Item Value Reference Range Interpretation [...] (test code = 50 U/L 6-55 347) PT/[id number] 06:31:00 Test Item Value Reference Range Interpretation [...] 2.5-3.5 for patients with mechanical heart valves.PROTHROMBIN TIME/[id number] 06:30:00 Test Item Value Reference Range Interpretation [...] = 2801) RAD, CHEST, 1 VIEW, NON [id number] 18:34:00Reason for exam:->SOBShould this be performed at [...] no significant change since 06/07/2018. Signed: Adán Herrmanneport Verified Date/Time: 06/11/2018 18:34:14 Reading Location: [address] Consult Reading Room B-TYPE NATRIURETIC FACTOR (BNP)2018-06-11 15:45:00 Test Item Value Reference Range Interpretation Comments B-TYPE NATRIURETIC PEPTIDE (BEAKER) < pg/mL 0-100 (test code = 700) [id number] 06:36:00 Test Item Value Reference Range Interpretation [...] 2.5-3.5 for patients with mechanical heart valves.PROTHROMBIN TIME/[id number] 06:35:00 Test Item Value Reference Range Interpretation Comments PROTIME (BEAKER) (test code = 21.5 seconds 11.7-14.7 H 759) INR (BEAKER) (test code = 370) 2.0 <=5.9 RECOMMENDED COUMADIN/WARFARIN INR THERAPY RANGESSTANDARD DOSE: 2.0 - 3.0 Includes: PROPHYLAXIS forvenous thrombosis, systemic embolization; TREATMENT for venous thrombosis and/or pulmonary embolus.HIGH RISK: Target INR is 2.5-3.5 for patients with mechanical heart valves.[id number] 06:29:00 Test Item Value Reference Range Interpretation Comments MAGNESIUM (BEAKER) 1.9 mg/dL 1.6-2.6 Specimen slightly (test code = 627) hemolyzed BASIC METABOLIC [id number] 06:29:00 Test Item Value Reference Range Interpretation [...] APPLICABLE FOR DIALYSIS PATIEN TS. HEPATIC FUNCTION [id number] 06:29:00 Test Item Value Reference Range Interpretation [...] 347) hemolyzed CBC W/PLT COUNT & AUTO [id number] 06:00:00 Test Item Value Reference Range Interpretation [...] = 2801) BODY FLUID CULTURE + GRAM [id number] 18:11:00 Test Item Value Reference Range Interpretation Comments CULTURE (BEAKER) (test No growth code = 1095) GRAM STAIN RESULT <1+ White blood cells (BEAKER) (test code = seen 1123) GRAM STAIN RESULT No organisms seen (BEAKER) (test code = 11509) [id number] 07:01:00 Test Item Value Reference Range Interpretation Comments MAGNESIUM (BEAKER) (test code = 1.9 mg/dL 1.6-2.6 627) BASIC METABOLIC [id number] 07:01:00 Test Item Value Reference Range Interpretation [...] APPLICABLE FOR DIALYSIS PATIEN TS. HEPATIC FUNCTION [id number] 07:01:00 Test Item Value Reference Range Interpretation [...] code = 66 U/L 6-55 H 347) [id number] 06:32:00 Test Item Value Reference Range Interpretation [...] PERCENT (BEAKER) (test code = 2801) BLOOD [id number] 22:01:00 Test Item Value Reference Range Interpretation Comments CULTURE (BEAKER) (test No growth in 5 days code = 1095) BLOOD [id number] 22:01:00 Test Item Value Reference Range Interpretation Comments CULTURE (BEAKER) (test No growth in 5 days code = 1095) [id number] 07:20:00 Test Item Value Reference Range Interpretation [...] 0-1 PERCENT (BEAKER) (test code = 2801) [id number] 07:08:00 Test Item Value Reference Range Interpretation Comments MAGNESIUM (BEAKER) (test code = 2.1 mg/dL 1.6-2.6 627) BASIC METABOLIC [id number] 07:08:00 Test Item Value Reference Range Interpretation [...] APPLICABLE FOR DIALYSIS PATIEN TS. HEPATIC FUNCTION [id number] 07:08:00 Test Item Value Reference Range Interpretation [...] = 69 U/L 6-55 H 347) PROTHROMBIN [id number] 06:54:00 Test Item Value Reference Range Interpretation Comments PROTIME (BEAKER) (test code = 21.3 seconds 11.7-14.7 H 759) INR (BEAKER) (test code = 370) 2.0 <=5.9 RECOMMENDED COUMADIN/WARFARIN INR THERAPY RANGESSTANDARD DOSE: 2.0 - 3.0 Includes: PROPHYLAXIS forvenous thrombosis, systemic embolization; TREATMENT for venous thrombosis and/or pulmonary embolus.HIGH RISK: Target INR is 2.5-3.5 for patients with mechanical heart valves.[id number] 06:24:00 Test Item Value Reference Range Interpretation Comments MAGNESIUM (BEAKER) (test code = 2.0 mg/dL 1.6-2.6 627) BASIC METABOLIC [id number] 06:24:00 Test Item Value Reference Range Interpretation [...] APPLICABLE FOR DIALYSIS PATIEN TS. HEPATIC FUNCTION [id number] 06:24:00 Test Item Value Reference Range Interpretation [...] H 347) CBC W/PLT COUNT & AUTO [id number] 06:17:00 Test Item Value Reference Range Interpretation [...] PERCENT (BEAKER) (test code = 2801) PROTHROMBIN [id number] 05:39:00 Test Item Value Reference Range Interpretation Comments PROTIME (BEAKER) (test code = 22.4 seconds 11.7-14.7 H 759) INR (BEAKER) (test code = 370) 2.1 <=5.9 RECOMMENDED COUMADIN/WARFARIN INR THERAPY RANGESSTANDARD DOSE: 2.0 - 3.0 Includes: PROPHYLAXIS forvenous thrombosis, systemic embolization; TREATMENT for venous thrombosis and/or pulmonary embolus.HIGH RISK: Target INR is 2.5-3.5 for patients with mechanical heart valves.[id number] 05:39:00 Test Item Value Reference Range Interpretation [...] for patients with mechanical heart valves.VANCOMYCIN LEVEL, [id number] 05:28:00 Test Item Value Reference Range Interpretation Comments VANCOMYCIN TROUGH (BEAKER) (test 14.0 ug/mL 10.0-20.0 code = 522) RAD, CHEST, 1 VIEW, NON [id number] 16:09:00Reason for exam:->feverShould this be performed at [...] MDReport Verified Date/Time: 06/07/2018 16:09:31 Reading Location: [facility] INCUBATED 1:1 MIXING [id number] 16:01:00 Test Item Value Reference Range Interpretation Comments IMMEDIATE PT (BEAKER) 22.5 seconds 11.7-14.7 H (test code = 1487) IMMEDIATE PTT (BEAKER) 54.8 seconds 22.5-36.0 H (test code = 1488) IMMEDIATE 1:1 MIX PT 14.1 seconds 11.7-14.7 (BEAKER) (test code = 5931725341) IMMEDIATE 1:1 MIX PTT 40.9 seconds 22.5-36.0 H (BEAKER) (test code = 4897215632) 1:1 MIX, 1 HOUR INC PT 14.9 seconds (BEAKER) (test code = 1501) 1:1 MIX, 1 HOUR INC PTT 43.6 seconds (BEAKER) (test code = 1502) MIXING STUDY PATHOLOGIST Prolonged PT and PTT INTERPRETATION (BEAKER) with complete (test code = 2579082240) correction of PT and incomplete correction of PTT, 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 [id number] Sade Mccormack MD (BEAKER) (test code = (electronic 2608) signature) URINALYSIS W/ REFLEX URINE [id number] 14:23:00 Test Item Value Reference Range Interpretation [...] 1574) Rare SOURCE(BEAKER) (test code = 2795) [id number] 04:19:00 Test Item Value Reference Range Interpretation [...] 2.5-3.5 for patients with mechanical heart valves.PROTHROMBIN [id number] 04:18:00 Test Item Value Reference Range Interpretation Comments PROTIME (BEAKER) (test code = 22.3 seconds 11.7-14.7 H 759) INR (BEAKER) (test code = 370) 2.1 <=5.9 RECOMMENDED COUMADIN/WARFARIN INR THERAPY RANGESSTANDARD DOSE: 2.0 - 3.0 Includes: PROPHYLAXIS forvenous thrombosis, systemic embolization; TREATMENT for venous thrombosis and/or pulmonary embolus.HIGH RISK: Target INR is 2.5-3.5 for patients with mechanical heart valves.[id number] 04:08:00 Test Item Value Reference Range Interpretation Comments MAGNESIUM (BEAKER) (test code = 1.8 mg/dL 1.6-2.6 627) BASIC METABOLIC [id number] 04:08:00 Test Item Value Reference Range Interpretation [...] APPLICABLE FOR DIALYSIS PATIEN TS. HEPATIC FUNCTION [id number] 04:08:00 Test Item Value Reference Range Interpretation [...] H 347) CBC W/PLT COUNT & AUTO [id number] 03:56:00 Test Item Value Reference Range Interpretation [...] PERCENT (BEAKER) (test code = 2801) [place], [id number] 18:30:00Reason for exam:->stonesPROCEDURE PERFORMED IN O.R. - PLEASE REFER TO THE INTRAOPERATIVE REPORT. CT, DRAINAGE, ABDOMINAL 2018-06-06 18:06:00Reason for exam:->drainage of pancreatic fluid collection; concern for infection given ongoing fevers, WBC 24kFINAL REPORT INDICATION:28-year-old male with acute pancreatitis and acute necrotic collection. Request for percutaneous image guided drainage catheter placement. COMPARISON:June 05, 2018 TECHNIQUE:CT-guided placement of 10 Cypriot drainage catheter in left upper quadrant peripancreatic [...] and the introducer needle removed. An 8 Cypriot and then 10 Cypriot dilator were used. Then, a 10 Cypriot multisidehole drainage catheter was placed over the [...] 45 minutes. IMPRESSION: CT-guided placement of 10 Cypriot drainage catheter in left upper quadrant peripancreatic collection. Thin dark fluid was encountered. Signed: Aldo Mcguire MDReport Verified Date/Time: 06/06/2018 18:06:54 Reading Location: [facility] B1 C013Y CT Body Reading Room Electronically sign ed by: ALDO MCGUIRE M.D. on 06/06/2018 06:06 PMC. DIFFICILE GDH [id number] 10:12:00 Test Item Value Reference Range Interpretation Comments CDT TOXIN (test code Negative Negative = [id number]) CDT GDH ANTIGEN (test Negative Negative No ind ication of code = [id number]) Clostridi um difficile infection and n o colonization. Discontinue ent starla isolation and t herapy. Testing performed by [employer] Rapid Cassette Assay. For GDH, published sensitivity of the assay is 98.7% compared to cytotoxicity testing. For Toxin AB, published sensitivity is 87.8% and specificity 99.4% compared to cytotoxicity testing.Verification of kit performance was done by the [facility] Microbiology Lab prior to clinical use.VANCOMYCIN LEVEL, [id number] 04:02:00 Test Item Value Reference Range Interpretation Comments VANCOMYCIN TROUGH (BEAKER) (test 9.9 ug/mL 10.0-20.0 L code = 522) [id number] 02:24:00 Test Item Value Reference Range Interpretation Comments MAGNESIUM (BEAKER) (test code = 1.8 mg/dL 1.6-2.6 627) BASIC METABOLIC [id number] 02:24:00 Test Item Value Reference Range Interpretation [...] APPLICABLE FOR DIALYSIS PATIEN TS. HEPATIC FUNCTION [id number] 02:24:00 Test Item Value Reference Range Interpretation [...] code = 60 U/L 6-55 H 347) [id number] 02:12:00 Test Item Value Reference Range Interpretation [...] 2.5-3.5 for patients with mechanical heart valves.PROTHROMBIN [id number] 02:11:00 Test Item Value Reference Range Interpretation [...] H PERCENT (BEAKER) (test code = 2801) [id number] 16:33:00 Test Item Value Reference Range Interpretation Comments FIBRINOGEN LEVEL (BEAKER) (test 852 mg/dl 225-434 H code = 658) CT, [id number] 12:46:00FINAL REPORT CT abdomen and pelvis with [...] MDReport Verified Date/Time: 06/05/2018 12:46:00 Reading Location: [facility] Diagnostic Imaging Reading Room - [place] [address] CBC W/PLT COUNT & AUTO DIFFERENTIAL 2018-06-05 [...] = 3438) Received comment: User comments: Slide comments:[id number] 04:13:00 Test Item Value Reference Range Interpretation [...] is 2.5-3.5 for patients with mechanical heart valves.[id number] 04:12:00 Test Item Value Reference Range Interpretation Comments MAGNESIUM (BEAKER) (test code = 1.8 mg/dL 1.6-2.6 627) BASIC METABOLIC [id number] 04:12:00 Test Item Value Reference Range Interpretation [...] APPLICABLE FOR DIALYSIS PATIEN TS. HEPATIC FUNCTION [id number] 04:12:00 Test Item Value Reference Range Interpretation [...] code = 55 U/L 6-55 347) PROTHROMBIN [id number] 04:12:00 Test Item Value Reference Range Interpretation Comments PROTIME (BEAKER) (test code = 20.4 seconds 11.7-14.7 H 759) INR (BEAKER) (test code = 370) 1.9 <=5.9 RECOMMENDED COUMADIN/WARFARIN INR THERAPY RANGESSTANDARD DOSE: 2.0 - 3.0 Includes: PROPHYLAXIS forvenous thrombosis, systemic embolization; TREATMENT for venous thrombosis and/or pulmonary embolus.HIGH RISK: Target INR is 2.5-3.5 for patients with mechanical heart valves.BLOOD [id number] 02:02:00 Test Item Value Reference Range Interpretation Comments CULTURE (BEAKER) (test No growth in 5 days code = 1095) BLOOD [id number] 02:02:00 Test Item Value Reference Range Interpretation Comments CULTURE (BEAKER) (test No growth in 5 days code = 1095) CBC W/PLT COUNT & AUTO [id number] 22:18:00 Test Item Value Reference Range Interpretation [...] = 3438) Received comment: User comments: Slide comments:[id number] 14:28:00 Test Item Value Reference Range Interpretation Comments PROCALCITONIN (BEAKER) (test code 0.62 ng/mL <0.05 H = 3036) SEPSIS RISK (ng/mL)Low: 0.05-0.50Intermediate: 0.51-2.00High: >=2.01LACTIC ACID, [id number] 14:07:00 Test Item Value Reference Range Interpretation Comments LACTATE BLOOD VENOUS 1.1 mmol/L 0.5-2.2 Specime n moderately (2) (BEAKER) (test hemolyzed code = 8231) [id number] 06:34:00 Test Item Value Reference Range Interpretation Comments MAGNESIUM (BEAKER) (test code = 1.7 mg/dL 1.6-2.6 627) BASIC METABOLIC [id number] 06:34:00 Test Item Value Reference Range Interpretation [...] APPLICABLE FOR DIALYSIS PATIEN TS. HEPATIC FUNCTION [id number] 06:34:00 Test Item Value Reference Range Interpretation [...] (test code = 53 U/L 6-55 347) [id number] 06:06:00 Test Item Value Reference Range Interpretation [...] 2.5-3.5 for patients with mechanical heart valves.PROTHROMBIN [id number] 06:05:00 Test Item Value Reference Range Interpretation Comments PROTIME (BEAKER) (test code = 18.7 seconds 11.7-14.7 H 759) INR (BEAKER) (test code = 370) 1.7 <=5.9 RECOMMENDED COUMADIN/WARFARIN INR THERAPY RANGESSTANDARD DOSE: 2.0 - 3.0 Includes: PROPHYLAXIS forvenous thrombosis, systemic embolization; TREATMENT for venous thrombosis and/or pulmonary embolus.HIGH RISK: Target INR is 2.5-3.5 for patients with mechanical heart valves.[id number] 06:22:00 Test Item Value Reference Range Interpretation Comments MAGNESIUM (BEAKER) (test code = 1.8 mg/dL 1.6-2.6 627) BASIC METABOLIC [id number] 06:22:00 Test Item Value Reference Range Interpretation [...] APPLICABLE FOR DIALYSIS PATIEN TS. HEPATIC FUNCTION [id number] 06:22:00 Test Item Value Reference Range Interpretation [...] (test code = 46 U/L 6-55 347) [id number] 06:08:00 Test Item Value Reference Range Interpretation [...] 2.5-3.5 for patients with mechanical heart valves.PROTHROMBIN TIME/[id number] 06:07:00 Test Item Value Reference Range Interpretation [...] = 2801) CBC W/PLT COUNT & AUTO [id number] 04:50:00 Test Item Value Reference Range Interpretation [...] H PERCENT (BEAKER) (test code = 2801) [id number] 04:26:00 Test Item Value Reference Range Interpretation Comments MAGNESIUM (BEAKER) (test code = 1.7 mg/dL 1.6-2.6 627) BASIC METABOLIC [id number] 04:26:00 Test Item Value Reference Range Interpretation [...] APPLICABLE FOR DIALYSIS PATIEN TS. HEPATIC FUNCTION [id number] 04:26:00 Test Item Value Reference Range Interpretation [...] (test code = 54 U/L 6-55 347) [id number] 04:11:00 Test Item Value Reference Range Interpretation [...] 2.5-3.5 for patients with mechanical heart valves.PROTHROMBIN TIME/[id number] 04:10:00 Test Item Value Reference Range Interpretation Comments PROTIME (BEAKER) (test code = 17.3 seconds 11.7-14.7 H 759) INR (BEAKER) (test code = 370) 1.5 <=5.9 RECOMMENDED COUMADIN/WARFARIN INR THERAPY RANGESSTANDARD DOSE: 2.0 - 3.0 Includes: PROPHYLAXIS forvenous thrombosis, systemic embolization; TREATMENT for venous thrombosis and/or pulmonary embolus.HIGH RISK: Target INR is 2.5-3.5 for patients with mechanical heart valves.U/S, ABDOMINAL, [id number] 14:19:00Abdomen limited area? Add comment if clarification [...] MDReport Verified Date/Time: 06/01/2018 14:19:45 Reading Location: [address] Transitional Reading Room CBC W/PLT COUNT & AUTO [id number] 06:28:00 Test Item Value Reference Range Interpretation [...] 0-1 PERCENT (BEAKER) (test code = 2801) [id number] 05:51:00 Test Item Value Reference Range Interpretation Comments MAGNESIUM (BEAKER) (test code = 2.0 mg/dL 1.6-2.6 627) BASIC METABOLIC [id number] 05:51:00 Test Item Value Reference Range Interpretation [...] DIALYSIS PATIEN TS. Specimen slightly ictericHEPATIC FUNCTION [id number] 05:51:00 Test Item Value Reference Range Interpretation [...] = 48 U/L 6-55 347) Specimen slightly ictericPT/[id number] 05:30:00 Test Item Value Reference Range Interpretation [...] 2.5-3.5 for patients with mechanical heart valves.PROTHROMBIN TIME/[id number] 05:29:00 Test Item Value Reference Range Interpretation Comments PROTIME (BEAKER) (test code = 16.0 seconds 11.7-14.7 H 759) INR (BEAKER) (test code = 370) 1.3 <=5.9 RECOMMENDED COUMADIN/WARFARIN INR THERAPY RANGESSTANDARD DOSE: 2.0 - 3.0 Includes: PROPHYLAXIS forvenous thrombosis, systemic embolization; TREATMENT for venous thrombosis and/or pulmonary embolus.HIGH RISK: Target INR is 2.5-3.5 for patients with mechanical heart valves.RAD, CHEST, 1 VIEW, NON [id number] 11:58:00Reason for exam:->pancreatitisShould this be performed at [...] consolidation inthe left lung base. Signed: Perez Huerta [facility] Verified Date/Time: 05/31/2018 11:58:54 Reading Location: [facility] Radiology Reading Room CBC W/PLT COUNT & AUTO [id number] 08:44:00 Test Item Value Reference Range Interpretation [...] = 3438) Received comment: User comments: Slide comments:[id number] 04:27:00 Test Item Value Reference Range Interpretation Comments MAGNESIUM (BEAKER) (test code = 1.6 mg/dL 1.6-2.6 627) BASIC METABOLIC [id number] 04:27:00 Test Item Value Reference Range Interpretation [...] DIALYSIS PATIEN TS. Specimen moderately ictericHEPATIC FUNCTION [id number] 04:27:00 Test Item Value Reference Range Interpretation [...] = 29 U/L 6-55 347) Specimen moderately ictericPT/[id number] 04:15:00 Test Item Value Reference Range Interpretation [...] 2.5-3.5 for patients with mechanical heart valves.PROTHROMBIN TIME/[id number] 04:14:00 Test Item Value Reference Range Interpretation [...] = 2795) CBC W/PLT COUNT & AUTO [id number] 21:33:00 Test Item Value Reference Range Interpretation [...] 3438) Received comment: User comments: Slide comments:TROPONIN [id number] 21:32:00 Test Item Value Reference Range Interpretation [...] acute neurological disease, and persistent tachyarrhythmia.BASIC METABOLIC [id number] 21:29:00 Test Item Value Reference Range Interpretation [...] APPLICABLE FOR DIALYSIS PATIEN TS. Specimen moderately [id number] 21:27:00 Test Item Value Reference Range Interpretation Comments MAGNESIUM (BEAKER) (test code = 1.6 mg/dL 1.6-2.6 627) LIPID [id number] 21:27:00 Test Item Value Reference Range Interpretation [...] 160-189 Very High >=190 Specimen moderatelyictericHEPATIC FUNCTION [id number] 21:27:00 Test Item Value Reference Range Interpretation [...] 9-64 (test code = 364) Specimen moderately [id number] 21:27:00 Test Item Value Reference Range Interpretation Comments LIPASE (BEAKER) (test code = 749) 227 U/L 8-78 H Specimen moderately ictericPROTHROMBIN [id number] 21:05:00 Test Item Value Reference Range Interpretation [...]
[2019-12-01] MEDS ORDERED: PANTOPRAZOLE 40 MG INJ ONE (12:56)
[2019-12-01] MEDS ORDERED: ONDANSETRON 4 MG/2 ML VIAL ONE ×2 (12:56→13:34)
[2019-12-01] MEDS ORDERED: OCTREOTIDE 500 MCG in NA CHLORIDE 0.9% 500 ML IV ONE (13:00)
[2019-12-01] MEDS ORDERED: PANTOPRAZOLE INJ 80 MG in NA CHLORIDE 0.9% 250 ML IV ONE (13:00)
[2019-12-01] MEDS ORDERED: OCTREOTIDE ACETATE 100 MCG/ML IV ONE (13:00)
[2019-12-01 13:17] LABS: Absolute Lymphocytes (CBC) 1.1 K/uL (0.7-4.9); Basophils % 0.8 % (0-1.3); Lymphocytes % 6.9 % (15.3-44.8); MPV 9.6 fL (7.6-11.3); RBC Red Blood Cell Count 2.23 M/uL (4.33-5.43)
[2019-12-01 13:24] LABS: Hematocrit 20.8 % (39.6-49.0)
[2019-12-01] MEDS ORDERED: NA CHLORIDE 0.9% 500 ML ONE (13:25)
[2019-12-01] MEDS ORDERED: DIPHENHYDRAMINE 50 MG/ML VIAL ONE (13:34)
[2019-12-01] MEDS ORDERED: HYDROCORTISONE SUC 100 MG INJ ONE (13:34)
[2019-12-01 13:37] LABS: ALT/SGPT 9 U/L (12-78); AST/SGOT 12 U/L (15-37); Albumin 1.2 g/dL (3.4-5.0); Alkaline Phosphatase 132 U/L (45-117); BUN Blood Urea Nitrogen 29 mg/dL (7-18); Bicarbonate 29 mmol/L (21-32); Bilirubin Direct < 0.1 mg/dL (0-0.2); Bilirubin Total 0.1 mg/dL (0.2-1.0); Glucose Level 155 mg/dL (74-106); Lipase 39 U/L (73-393); Potassium 5.5 mmol/L (3.5-5.1); Protein, Total 4.5 g/dL (6.4-8.2); Sodium Level 139 mmol/L (136-145)
[2019-12-01 14:47] LABS: Blood Morphology Comment NOTED (NOT SEEN); Platelet Estimate INCR; White Blood Cell Scan OK (OK)
[2019-12-01 14:48] LABS: Anisocytosis 1+; Poikilocytosis 2+
--- NOTE | 2019-12-01 14:49 | ER ---
Nurse's Notes [facility] Name: Jann Alvarez Age: 29 yrs Sex: Male : 1990 Arrival Date: 12/01/2019 Time: 12:34 Bed 6 Private MD: Diagnosis: Gastrointestinal hemorrhage, unspecified;Acute Anemia Presentation: 11/30 12:50 Chief complaint: Chief complaint: EMS states: black, tarry stools x 1 week; post jl7 cholecystectomy \T\ splenectomy x 6 weeks ago. Coronavirus screen: Client denies travel out of the [place] in the last 14 days. At this time, the client does not indicate any symptoms associated with coronavirus-19. Ebola Screen: No symptoms or risks identified at this time. Initial Sepsis Screen: Does the patient meet any 2 criteria? No. Patient's initial sepsis screen is negative. Does the patient have a suspected source of infection? No. Patient's initial sepsis screen is negative. Risk Assessment: Do you want to hurt yourself or someone else? Patient reports no desire to harm self or others. Onset of symptoms was November 25, 2019. Care prior to arrival: None. Transition of care: patient was not received from another setting of care. 12:50 Method Of Arrival: EMS: [facility] jl7 12:50 Acuity: KIMBER 1 tw2 Triage Assessment: 12:50 General: Appears in no apparent distress. slender, Behavior is calm, cooperative. Pain: tw2 Denies pain. Cardiovascular: Capillary refill is > 3 seconds. Derm: Skin is pale, Skin temperature is cool. Historical: - Allergies: 12:42 meropenem; tw2 12:42 Vancomycin; tw2 12:42 Zosyn; tw2 - Home Meds: 15:54 Dulcolax (bisacodyl) 5 mg Oral TbEC 1 tab as needed [Active]; midodrine 5 mg oral tab 2 tw2 tabs 3 times per day for Symptomatic Orthostatic Hypotension [Active]; gabapentin 100 mg oral cap 2 caps 3 times per day [Active]; Zofran (as hydrochloride) 4 mg Oral tab 1 tabs every 12 hours [Active]; ferrous sulfate 325 mg (65 mg iron) Oral TbEC [Active]; - PMHx: 12:42 Autism; Autism- Nonverbal; Lupus; Pancreatitis; SEVERE PANCREATIC NECROSIS; Gastric tw2 varices; - PSHx: 12:42 Cholecystectomy; splenectomy; tw2 - Immunization history:: Adult Immunizations. - Social history:: Smoking status: . Screenin:51 Abuse screen: Denies threats or abuse. Nutritional screening: No deficits noted. tw2 Tuberculosis screening: No symptoms or risk factors identified. Fall Risk None identified. Assessment: 12:50 General: Appears in no apparent distress. slender, Behavior is calm, cooperative. tw2 Neuro: Level of Consciousness is awake, alert, obeys commands, Oriented to person, place, time, situation. Cardiovascular: Heart tones S1 S2 Capillary refill is > 3 seconds. Respiratory: Airway is patent Respiratory effort is even, unlabored, Respiratory pattern is regular, symmetrical, Breath sounds are clear bilaterally. GI: Abdomen is flat, Bowel sounds present X 4 quads. Parent/caregiver reports the patient having nausea, vomiting. : No signs and/or symptoms were reported regarding the genitourinary system. EENT: No signs and/or symptoms were reported regarding the EENT system. Derm: Skin is pale. Musculoskeletal: Range of motion: intact in all extremities. 13:17 Reassessment: SEE BLOOD TRANSFUSION RECORD. tw2 14:30 Reassessment: Patient appears in no apparent distress at this time. Patient and/or tw2 family updated on plan of care and expected duration. Pain level reassessed. pt has pink color noted to cheeks at this time. 15:30 Reassessment: Patient appears in no apparent distress at this time. Patient and/or tw2 family updated on plan of care and expected duration. Pain level reassessed. pt has pink color noted to cheeks at this time. 16:28 Reassessment: Patient appears in no apparent distress at this time. Patient and/or tw2 family updated on plan of care and expected duration. Pain level reassessed. 17:26 Reassessment: Patient appears in no apparent distress at this time. Patient and/or tw2 family updated on plan of care and expected duration. Pain level reassessed. 18:02 Reassessment: Patient appears in no apparent distress at this time. Patient and/or tw2 family updated on plan of care and expected duration. Pain level reassessed. 19:30 General: Appears in no apparent distress. Behavior is calm, cooperative. Pain: Unable ea to use pain scale. FLACC scale score is 0 out of 10. Neuro: Level of Consciousness is awake, alert, obeys commands, Oriented to person, place. Cardiovascular: Patient's skin is warm and dry. Respiratory: Airway is patent Respiratory effort is even, unlabored, Respiratory pattern is regular, symmetrical. Derm: Skin is pale. 19:45 Reassessment: Attempted to call report to receiving nurse at [facility]. ea 20:08 Reassessment: Attempted to call reports, transfer service reported nurse would call ea back. 20:25 Reassessment: Report given to Robina LEDEZMA at [facility]. ea 20:38 Reassessment: Patient and/or family updated on plan of care and expected duration. Pain ea level reassessed. Pt alert and oriented to self and place. Mother remains at bedside. No s/s of pain or discomfort noted at this time. [facility] at bedside updating pt on plan of care. 20:47 Reassessment: Patient and/or family updated on plan of care and expected duration. Pain ea level reassessed. Pt alert and oriented to self and place. [facility] at facility for transfer, report given to EMS. Pt left ED via stretcher per EMS. Pt tolerating well. Vital Signs: 12:36 Temp 97.8; tw2 12:50 BP 74 / 59; Pulse 124; Resp 24; Pulse Ox 95% ; jl7 13:22 BP 77 / 61; Pulse 122; Resp 19; Temp 97.2; Pulse Ox 100% on R/A; tw2 13:47 BP 82 / 67; Pulse 107; Resp 18; Temp 96.7(TE); Pulse Ox 100% on R/A; tw2 14:39 BP 80 / 70; Pulse 90; Resp 19; Temp 97.8(O); Pulse Ox 100% on R/A; mh5 15:00 BP 83 / 66; Pulse 18; Resp 18; Pulse Ox 100% on R/A; tw2 15:30 BP 89 / 67; Pulse 94; Resp 18; Pulse Ox 100% on R/A; tw2 16:00 BP 95 / 63; Pulse 94; Resp 17; Pulse Ox 100% on R/A; tw2 16:28 BP 93 / 61; Pulse 96; Resp 17; Pulse Ox 100% on R/A; tw2 17:00 BP 88 / 65; Pulse 91; Resp 16; Pulse Ox 100% on R/A; tw2 17:26 BP 85 / 72; Pulse 92; Resp 17; Pulse Ox 100% on R/A; tw2 18:00 BP 86 / 64; Pulse 84; Resp 16; Pulse Ox 100% on R/A; tw2 18:20 BP 86 / 62; Pulse 80; Resp 18; Pulse Ox 100% ; jl7 18:40 BP 88 / 64; Pulse 88; Resp 16; Pulse Ox 100% ; jl7 20:53 BP 91 / 65; Pulse 88; Resp 17; Pulse Ox 100% ; ea ED Course: 12:34 Patient arrived in ED. jl7 12:34 Jaguar Crawley PA is PHCP. jl7 12:34 Placed in gown. Bed in low position. Call light in reach. Side rails up X2. Adult w/ tw2 patient. quality assurance monitor on. Pulse ox on. NIBP on. Warm blanket given. Pillow given. 12:34 Arm band placed on. tw2 12:48 Rush Briones MD is Attending Physician. [facility] 12:50 Manjit Coughlin RN is Primary Nurse. jl7 12:50 Assisted provider with central line placement. Set up central line tray. Triple lumen tw2 line placed in right femoral. Line placed by Jaguar SANDY Placement verified by blood return, Dressed with Tegaderm, Blood was collected. Patient tolerated well. Before procedure, did Practitioner(s) obtain informed consent? Yes. Patient \T\ family education about procedure, CLABSI prevention and S/S of infection? Yes. Time-out/Briefing performed prior to start of procedure? Yes. Was handwashing/sanitizing done immediately prior to procedure? Yes. Was patient positioned to in a way to prevent air embolism? Yes. Was procedure site sterilized? Yes, with chlorhexidine. Was the site allowed to dry? Yes. Was local anesthetic and/or sedation utilized? Yes. During the procedure, did the Practitioner(s) maintain a sterile field? Yes. Were unused ports clamped during insertion? Yes. After the procedure, did the Practitioner(s) clean the site and apply a sterile dressing? Yes. 12:57 Triage completed. jl7 14:08 initiated transfer to [facility]. bd 15:32 talked to Aniyah at the transfer center at [facility], no icu beds at this time, pt is on bd the wait list to get a bed. 18:50 talked to Marbella at [facility], waiting on bed to be cleaned. bd 19:00 Report given to BRISA Serra and BRISA Stiles. tw2 19:30 Primary Nurse role handed off by Manjit Coughlin RN mw2 19:46 Andressa Gomez, BRISA is Primary Nurse. ea 20:04 Patient transferred, IV remains in place. ea Administered Medications: 12:55 Drug: ProTONIX 40 mg Route: IVP; Site: right femoral; tw2 13:47 Follow up: Response: No adverse reaction tw2 12:58 Drug: Octreotide 50 mcg Route: IV; Rate: 1 bolus; Site: right femoral; tw2 13:01 Follow up: Response: No adverse reaction; IV Status: Completed infusion tw2 12:58 Drug: Zofran (Ondansetron) 4 mg Route: IVP; Site: right femoral; tw2 13:15 Follow up: Response: No adverse reaction tw2 13:12 Drug: ProTONIX 8 mg/hr Route: IV; Rate: 25 ml/hr; Site: left femoral; tw2 20:49 Follow up: Response: No adverse reaction; IV Status: Infusion continued upon transfer ea 13:12 Drug: Octreotide Infusion (50 mcg/hr) - (Octreotide 500 mcg, NS 0.9% 500 ml) Route: IV; tw2 Rate: 50 ml/hr; Site: right femoral; 20:49 Follow up: Response: No adverse reaction; IV Status: Infusion continued upon transfer ea Outcome: 14:48 ER care complete, transfer ordered by MD. hurt 20:04 Condition: stable ea 20:04 Instructed on the need for transfer, Demonstrated understanding of instructions. 20:47 Transferred by ground EMS to [facility], Transfer form completed. ea 20:52 Patient left the ED. ea Signatures: Rosalinda Perry Corey, MD MD cha Roszak, Josh, PA PA jr8 Paulina Marquez RN RN tw2 Mellissa Cedeno [facility] Manjit Coughlin, BRISA RN jl7 Andressa Gomez RN RN ea [place], MyKena mw2 Corrections: (The following items were deleted from the chart) 13:53 12:50 Acuity: KIMBER 2 jl7 tw2
--- NOTE | 2019-12-01 14:49 | EDPHYS ---
Physician Documentation [facility] Name: Jann Alvarez Age: 29 yrs Sex: Male : 1990 Arrival Date: 12/01/2019 Time: 12:34 Bed 6 Private MD: ALFREDO Physician Rush Briones HPI: 11/30 13:57 This 29 yrs old Male presents to ER via EMS with complaints of Melena in stool.jr8 13:57 The patient presents to the emergency department with rectal bleeding, a moderate jr8 amount, melena. Onset: The symptoms/episode began/occurred acutely, today. Abdominal pain: described as dull, located in the epigastric area, that does not radiate. Modifying factors: The symptoms are alleviated by nothing, the symptoms are aggravated by nothing. Associated signs and symptoms: Pertinent positives: dizziness when standing. Severity of symptoms: At their worst the symptoms were moderate in the emergency department the symptoms are unchanged. It is unknown whether or not the patient has had similar symptoms in the past. The patient has not recently seen a physician. . Patient with hospitalization at [facility] somewhat recently for cholecystectomy and splenectomy for gall stone pancreatitis. Unknown why spleen had to come out but mother of patient thought it was in conjunction with is gastric varices that he has also. Stated that he had to have clip in one of them. Mother stated that patient had just told her that his stomach had been hurting over the past week. Today had melena and then turned pale and tachycardic. EMS called at that time. Historical: - Allergies: 12:42 meropenem; tw2 12:42 Vancomycin; tw2 12:42 Zosyn; tw2 - Home Meds: 15:54 Dulcolax (bisacodyl) 5 mg Oral TbEC 1 tab as needed [Active]; midodrine 5 mg oral tab 2 tw2 tabs 3 times per day for Symptomatic Orthostatic Hypotension [Active]; gabapentin 100 mg oral cap 2 caps 3 times per day [Active]; Zofran (as hydrochloride) 4 mg Oral tab 1 tabs every 12 hours [Active]; ferrous sulfate 325 mg (65 mg iron) Oral TbEC [Active]; - PMHx: 12:42 Autism; Autism- Nonverbal; Lupus; Pancreatitis; SEVERE PANCREATIC NECROSIS; Gastric tw2 varices; - PSHx: 12:42 Cholecystectomy; splenectomy; tw2 - Immunization history:: Adult Immunizations. - Social history:: Smoking status: . ROS: 13:57 Eyes: Negative for injury, pain, redness, and discharge, ENT: Negative for injury, jr8 pain, and discharge, Neck: Negative for injury, pain, and swelling, Cardiovascular: Negative for chest pain, palpitations, and edema, Respiratory: Negative for shortness of breath, cough, wheezing, and pleuritic chest pain, Back: Negative for injury and pain, MS/Extremity: Negative for injury and deformity. 13:57 Neuro: Negative for headache, weakness, numbness, tingling, and seizure. 13:57 Abdomen/GI: Positive for abdominal pain, nausea, black/tarry stool. 13:57 Skin: Positive for pallor. Exam: 13:57 Head/Face: Normocephalic, atraumatic. ENT: Nares patent. No nasal discharge, no jr8 septal abnormalities noted. Tympanic membranes are normal and external auditory canals are clear. Oropharynx with no redness, swelling, or masses, exudates, or evidence of obstruction, uvula midline. Mucous membranes moist. Gum line pale Neck: Trachea midline, no thyromegaly or masses palpated, and no cervical lymphadenopathy. Supple, full range of motion without nuchal rigidity, or vertebral point tenderness. No Meningismus. Respiratory: Lungs have equal breath sounds bilaterally, clear to auscultation and percussion. No rales, rhonchi or wheezes noted. No increased work of breathing, no retractions or nasal flaring. 13:57 Back: No spinal tenderness. No costovertebral tenderness. Full range of motion. MS/ Extremity: Pulses equal, no cyanosis. Neurovascular intact. Full, normal range of motion. Neuro: Awake and alert, GCS 15, oriented to person, place, time, and situation. Cranial nerves II-XII grossly intact. Motor strength 5/5 in all extremities. Sensory grossly intact. 13:57 Eyes: Periorbital structures: appear normal, Pupils: equal, round, and reactive to light and accomodation, Extraocular movements: intact throughout, Conjunctiva: pale, Corneas: are normal, Sclera: no appreciated abnormality, Anterior chamber: normal, Lids and lashes: appear normal. 13:57 Cardiovascular: Rate: tachycardic, Rhythm: regular, Pulses: Pulses are 2+ in right radial artery, right femoral artery, left radial artery and left femoral artery. Heart sounds: normal, Edema: is not appreciated. 13:57 Abdomen/GI: Inspection: abdomen appears normal, Bowel sounds: active, all quadrants, Palpation: soft, in all quadrants, mild abdominal tenderness, in the epigastric area, mass, is not appreciated, rebound tenderness, is not appreciated, voluntary guarding, is not appreciated, involuntary guarding, is not appreciated, no appreciated organomegaly, Indicators: McBurney's point is not tender, Olivera's sign is negative, Rovsing's sign is negative, Liver: tenderness, is not appreciated. 13:57 Skin: Appearance: Color: pale, Temperature: cool. Vital Signs: 12:36 Temp 97.8; tw2 12:50 BP 74 / 59; Pulse 124; Resp 24; Pulse Ox 95% ; jl7 13:22 BP 77 / 61; Pulse 122; Resp 19; Temp 97.2; Pulse Ox 100% on R/A; tw2 13:47 BP 82 / 67; Pulse 107; Resp 18; Temp 96.7(TE); Pulse Ox 100% on R/A; tw2 14:39 BP 80 / 70; Pulse 90; Resp 19; Temp 97.8(O); Pulse Ox 100% on R/A; mh5 15:00 BP 83 / 66; Pulse 18; Resp 18; Pulse Ox 100% on R/A; tw2 15:30 BP 89 / 67; Pulse 94; Resp 18; Pulse Ox 100% on R/A; tw2 16:00 BP 95 / 63; Pulse 94; Resp 17; Pulse Ox 100% on R/A; tw2 16:28 BP 93 / 61; Pulse 96; Resp 17; Pulse Ox 100% on R/A; tw2 17:00 BP 88 / 65; Pulse 91; Resp 16; Pulse Ox 100% on R/A; tw2 17:26 BP 85 / 72; Pulse 92; Resp 17; Pulse Ox 100% on R/A; tw2 18:00 BP 86 / 64; Pulse 84; Resp 16; Pulse Ox 100% on R/A; tw2 18:20 BP 86 / 62; Pulse 80; Resp 18; Pulse Ox 100% ; jl7 18:40 BP 88 / 64; Pulse 88; Resp 16; Pulse Ox 100% ; jl7 20:53 BP 91 / 65; Pulse 88; Resp 17; Pulse Ox 100% ; ea Procedures: 13:09 Central Line: the site was prepped with Betadine, in sterile fashion, a triple lumen jr8 catheter was inserted, in the right femoral vein, in 1 attempts. placement was verified, by blood return, the site was dressed with 4X4s, Tegaderm, using sterile technique, the patient tolerated the procedure, well. MDM: 12:48 Patient medically screened. rachelle 14:44 Data reviewed: vital signs, nurses notes, lab test result(s). Data interpreted: Pulse jr8 oximetry: on room air is 100 %. Interpretation: normal. Counseling: I had a detailed discussion with the patient and/or guardian regarding: the historical points, exam findings, and any diagnostic results supporting the discharge/admit diagnosis, lab results, the need to transfer to another facility, [facility] does not immediately have the required specialist. ED course: Spoke with GI and Information Security Engineer at [facility]. Both accepted to ICU for gastric bleed. 14:47 ED course: Mother of patient at bedside and updated her on everything. Very comfortable jr8 with transfer and treatment plan. Patient overall improving. At this time safe to transfer via ambulance . 11/30 12:36 Order name: Basic Metabolic Panel; Complete Time: 13:50 7 11/30 12:36 Order name: CBC with Diff; Complete Time: 14:49 7 11/30 12:36 Order name: Hepatic Function; Complete Time: 13:50 [facility] 11/30 12:36 Order name: Lipase; Complete Time: 13:50 [facility] 11/30 13:08 Order name: Packed RBC Leukored EDKY 11/30 13:08 Order name: RBC Leukored Pheresis EDKY 11/30 13:15 Order name: Type and Screen [facility]KY 11/30 13:25 Order name: CBC Smear Scan; Complete Time: 14:49 [facility] 11/30 12:36 Order name: IV Saline Lock; Complete Time: 13:18 [facility] 11/30 12:36 Order name: Labs collected and sent; Complete Time: 13:18 [facility] 11/30 13:47 Order name: Transfuse; Complete Time: 13:47 tw2 Administered Medications: 12:55 Drug: ProTONIX 40 mg Route: IVP; Site: right femoral; tw2 13:47 Follow up: Response: No adverse reaction tw2 12:58 Drug: Octreotide 50 mcg Route: IV; Rate: 1 bolus; Site: right femoral; tw2 13:01 Follow up: Response: No adverse reaction; IV Status: Completed infusion tw2 12:58 Drug: Zofran (Ondansetron) 4 mg Route: IVP; Site: right femoral; tw2 13:15 Follow up: Response: No adverse reaction tw2 13:12 Drug: ProTONIX 8 mg/hr Route: IV; Rate: 25 ml/hr; Site: left femoral; tw2 20:49 Follow up: Response: No adverse reaction; IV Status: Infusion continued upon transfer ea 13:12 Drug: Octreotide Infusion (50 mcg/hr) - (Octreotide 500 mcg, NS 0.9% 500 ml) Route: IV; tw2 Rate: 50 ml/hr; Site: right femoral; 20:49 Follow up: Response: No adverse reaction; IV Status: Infusion continued upon transfer ea Disposition: 12/01 08:01 Co-signature as Attending Physician, Rush Briones MD I agree with the assessment and rachelle plan of care. Disposition: 12/01/19 14:[address] [facility]. Diagnosis are Gastrointestinal hemorrhage, unspecified, Acute Anemia. - Reason for transfer: Higher level of care. - Accepting physician is Dr. Sandy. - Condition is Serious. - Problem is new. - Symptoms have improved. Critical care time excluding procedures: 11/30 14:47 Critical care time: Bedside Care: 30 minutes, Consultation: 15 minutes, Family jr8 Intervention: 10 minutes. Total time: 55 minutes Signatures: Dispatcher [employer] EDRush Irvin MD MD cha Roszak, Josh, PA PA jr8 Paulina Marquez RN RN tw2 Manjit Coughlin RN RN jl7 Andressa Gomez RN RN ea Corrections: (The following items were deleted from the chart) 13:15 13:08 ABO/RH typing ordered. EDKY EDMS 13:18 12:37 TYPE AND SCREEN+[id number].BRZ ordered. EDKY EDMS 20:52 14:48 12/01/2019 14:[address] [facility]. ea Diagnosis is Gastrointestinal hemorrhage, unspecified; Acute Anemia. Reason for transfer: Higher level of care. Accepting physician is Dr. Sandy. Condition is Serious. Problem is new. Symptoms have improved. jr8
[2019-12-01] MEDS ORDERED: OCTREOTIDE 500 MCG in NA CHLORIDE 0.9% 500 ML IV SCH (19:00)
[2019-12-01] MEDS ORDERED: PANTOPRAZOLE INJ 80 MG in NA CHLORIDE 0.9% 250 ML IV SCH (19:00)
[2019-12-01 23:07] VITALS: O2SAT 100
[2019-12-01 23:31] VITALS: BP 88/64
[2019-12-01 23:47] VITALS: TEMP 97.8
== END 2019-12-01 20:52 | disposition short-term general hospital (02) ==
LOC: ER 12:28
PROC: 30233N1 Transfusion of Nonautologous Red Blood Cells into Peripheral Vein, Percutaneous Approach (ICD-10-PCS; principal; 2019-12-01)
DX: D64.9 Anemia, unspecified (principal); Z90.49 Acquired absence of other specified parts of digestive tract; Z90.81 Acquired absence of spleen; F84.0 Autistic disorder; I95.1 Orthostatic hypotension; Z88.3 Allergy status to other anti-infective agents; Z88.8 Allergy status to other drugs, medicaments and biological substances
CPT/HCPCS: 85025; 80048; 36415; 86900; 86850; 86901; 80076; 83690; 99291; 99292; 36430; J2354 ×3; C9113 ×3; P9016 ×2; J7050 ×3; J7040 ×2; J2405 ×2; J1200; J1720

== ENCOUNTER 2019-12-13 09:20 | Emergency (ER) | payer OTHER ==
--- OUTSIDE RECORDS SUMMARY | 2019-12-13 09:25 | XMS REPORT | Clinical Summary ---
:1990 Author Organization [facility] Address [address] [place] [address] Care Team Providers Name Role Phone Zac Coughlin Montrell Primary Care Provider [facility] Unavailable Allergies Active Allergy Reactions Severity Noted [...] every 8 tablet (eight) hours as needed. ursodioL (ACTIGALL) Take 500 mg 0 Active 500 MG tablet by mouth daily. midodrine Take 2 90 tablet 0 Active (PROAMATINE) 5 MG tablets (10 0 tablet mg total) by mouth 3 (three) times daily. senna (SENOKOT) 8.6 Take 2 60 tablet 0 10/24/19 Active mg tablet tablets (17.2 0 21 mg total) by mouth nightly. gabapentin Take 2 180 capsule 0 10/24/19 Active (NEURONTIN) 100 MG capsules (200 0 21 capsule mg total) by mouth 3 (three) times daily. sucralfate Take 10 mLs 420 mL 0 01/06/20 Active (CARAFATE) 100 (1 g total) 0 20 mg/mL suspension by mouth every 6 (six) hours for 30 days. pantoprazole Take 1 tablet 168 tablet 0 02/28/19 Ac tive (PROTONIX) 40 MG (40 mg total) 0 21 tablet by mouth 2 (two) times daily for 84 days. traMADoL (ULTRAM) Take 2 30 tablet 0 01/04/20 Ac tive 50 mg tablet tablets (100 0 20 mg total) by mouth every 6 (six) hours as needed for Pain for up to 28 days. Max Daily Amount: 400 mg nystatin Apply 15 g 0 06/16/19 (MYCOSTATIN) [...] Max Daily Amount: 3 tablets pantoprazole Take 40 mg by 1 12/07/19 Dis continued (PROTONIX) 40 MG mouth 2 (two) 9 20 (Reorder) tablet times daily . docusate sodium Take 100 mg 0 10/13/19 [...] 20 (S top Taking at capsule Discharge) traMADoL (ULTRAM) Take 2 30 tablet 0 12/07/19 Di scontinued 50 mg tablet tablets (100 0 20 (Reo rder) mg total) by mouth every 6 (six) hours as needed for Pain. Max Daily Amount: 400 mg Active Problems Problem Noted Date Upper GI bleed 12/01/2019 Acute postoperative pain 10/18/2019 Acute respiratory insufficiency, postoperative 020 Hemorrhagic shock 10/18/2019 Metabolic acidosis 10/18/2019 Oliguria 10/18/2019 Acute blood loss anemia 10/18/2019 Hyperglycemia 10/18/2019 S/P splenectomy during current hospitalization 020 Gastric varices 10/13/2019 Obstructive jaundice 02/14/2019 GI bleed 08/27/2018 Leukocytosis 08/27/2018 Hypomagnesemia 07/28/2018 Acute recurrent pancreatitis 07/27/2018 Peripancreatic fluid collection 07/11/2018 Cholangitis 05/30/2018 Encounters Date Type Specialty Care Team Description Surgery Gastroenterology Wilmer Santiago UPPER 0 MD Kai ENDOSCOPY,SUBMU COSAL INJECTION Anesthesia Event Gastroenterology Ashley Crowder 0 MD Jarocho Godwin Monte Dean, MD Hospital Encounter General Internal Du Chavarria, Montrell cute blood loss anemia; 0 - Medicine Dalton Glasgow, Upper GI ble ed; GI bleed requiring more than 4 units of blood in 24 hours, ICU, or surgery; 0 Vinay Brooks Gastrointestem burris hemorrhage associated with duodenal ulcer; Mellissa GILES MD Gastric varices; Yrn Hannah Hemorrhagic shock (HCC); MD Elisa Acute duodenal ulcer with gastric outlet obstruction; Duodenal ulcer Travel 0 Telephone Critical Care Du Chavarria, transfer 0 Medicine Dalton Glasgow MD Telephone Gastroenterology Trinidad Cuellar GI Bleedin g 0 MD Celia Anesthesia Event Rashawn, 0 MD Shubham Romero Uvie Christina, MD Surgery Marc Clark LOIS 0 MD Tony Anesthesia Event Gastroenterology Marvel, 0 MD Jeremi Hernandes Ludwig, CRNA Surgery Gastroenterology Wilmer Santiago UPPER 0 MD Kai ENDOSCOPY,ULTRA SOUND Hospital Encounter General Internal Zindani, Gastr ic varices; 0 - Medicine MD April Other acute pancreatitis with uninfected necrosis; JessicaCatherine hua Acute biliary p ancreatitis with uninfected necrosis; 0 Khadijah Proctor, Splenic vein thrombosis; Acute respiratory insufficiency, postope rative; Jorge Arcos MD Other shock (HCC); Snow Adams Acute posto perative pain; MD Aristeo Leukocytosis, unspecified type; Oscar, S/P splenectomy during current hospitalization; Negin Connors, Acute blood loss anemia; Hemorrhagic steff ck (HCC); Metabolic acido sis Documentation Internal Medicine Yaa 0 MD April Telephone Gastroenterology Trinidad Cuellar 0 MD Celia Lab Requisition Lab 0 Anesthesia Event Gastroenterology Elver Avendaño 0 MD Get Surgery Gastroenterology Naz, Uriah ERCP 0 [facility], Obstruct[facility] ve jaundice; 0 - MD Linda Peripancreatic fluid collection; Gadicherla, History of panc reatitis; 0 Katina Leukocytosis, u nspecified type; MD Wing Acute blood loss anemia Jacob Pinon MD Zaheer, Amer, MD Travel 0 after 12/12/2018 Immunizations Name Administration Dates Next Due HiB 10/23/2019 Influenza Four-QIV PF 3YR+ 10/24/2019 Meningococcal B, Omv 10/23/2019 Meningococcal Conjugate 10/24/2019 Pneumococcal Conjugate (Prevnar) 13-Valent 10/24/2019 Social History Tobacco Use Types Packs/Day Years Used Date Never Smoker Smokeless Tobacco: Never Used Alcohol Use Drinks/Week oz/Week Comments Not Currently Sex Assigned at Date Recorded Not on file COVID-19 Exposure Response Date Recorded In the last month, have you been in contact with No / Unsure 12/01/2019 10:45 PM CDT someone who was confirmed or suspected to have Coronavirus / COVID-19? Last Filed Vital Signs Vital Sign Reading Time Taken Comments Blood Pressure 105/69 12/07/2019 8:00 AM ROBOT DESIGNER Pulse 96 12/07/2019 8:00 AM ROBOT DESIGNER Temperature 36.3 C (97.3 F) 12/07/2019 8:00 AM ROBOT DESIGNER Respiratory Rate 20 12/07/2019 8:00 AM ROBOT DESIGNER Oxygen Saturation 100% 12/07/2019 8:00 AM ROBOT DESIGNER Inhaled Oxygen Concentration 21% 10/21/2019 9:26 AM CDT Weight 57.2 kg (126 lb) 12/06/2019 6:00 AM CDT Height 177.8 cm (5' 10") 12/04/2019 11:58 PM CDT Body Mass Index 18.08 12/04/2019 11:58 PM CDT Plan of Treatment Health Maintenance Due Date Last Done Comments PNEUMOCOCCAL VACCINE 0-64 YRS (1 of 1 - PPSV23) 12/19/2019 10/24/2019 INFLUENZA VACCINE Completed 10/24/2019 Implants Implanted Type Area Hr Operations Advisor Device Shelf Model / Identifier Expiration Date Ser ial / Lot Stent Bili Duodenal [id number] - [id number] IMPLANTS MIKAYLA STON SCI:ENDO 3432 / Implanted: Qty: 1 on 02/15/2019 by Uriah Childs at [facility] / Procedures Procedure Name Priority Date/Time Associated Diagnosis Comme nts REPORT OF PROCEDURE - 12/08/2019 ENDOSCOPY URL 8:16 AM ROBOT DESIGNER POCT-GLUCOSE METER Routine 12/07/2019 Results f or 12:44 PM ROBOT DESIGNER this procedure are in the results section. POCT-GLUCOSE METER Routine 12/07/2019 Results f or 6:04 AM ROBOT DESIGNER this procedure are in the results section. CBC W/PLT COUNT & Routine 12/07/2019 Results fo r AUTO DIFFERENTIAL 5:47 AM ROBOT DESIGNER this proce dure are in the results section. PHOSPHORUS Routine 12/07/2019 Results for 5:47 AM ROBOT DESIGNER this procedure are in the results section. MAGNESIUM Routine 12/07/2019 Results for 5:47 AM ROBOT DESIGNER this procedure are in the results section. PROTHROMBIN TIME/INR Routine 12/07/2019 Results for 5:47 AM ROBOT DESIGNER this procedure are in the results section. BASIC METABOLIC PANEL Routine 12/07/2019 Result s for (7) 5:47 AM ROBOT DESIGNER this procedure are in the results section. CBC W/PLT COUNT & Routine 12/07/2019 Results fo r AUTO DIFFERENTIAL 5:47 AM ROBOT DESIGNER this proce dure are in the results section. POCT-GLUCOSE METER Routine 12/06/2019 Results f or 11:52 PM CDT this procedure are in the results section. HEMOGLOBIN AND Routine 12/06/2019 Results for HEMATOCRIT 8:41 PM CDT this procedure are in the results section. POCT-GLUCOSE METER Routine 12/06/2019 Results f or 5:14 PM CDT this procedure are in the results section. POCT-GLUCOSE METER Routine 12/06/2019 Results f or 12:27 PM CDT this procedure are in the results section. POCT-GLUCOSE METER Routine 12/06/2019 Results f or 5:56 AM CDT this procedure are in the results section. CBC W/PLT COUNT & Routine 12/06/2019 Results fo r AUTO DIFFERENTIAL 5:23 AM CDT this proce dure are in the results section. CBC W/PLT COUNT & Routine 12/06/2019 Results fo r AUTO DIFFERENTIAL 5:23 AM CDT this proce dure are in the results section. PHOSPHORUS Routine 12/06/2019 Results for 5:22 AM CDT this procedure are in the results section. MAGNESIUM Routine 12/06/2019 Results for 5:22 AM CDT this procedure are in the results section. PROTHROMBIN TIME/INR Routine 12/06/2019 Results for 5:22 AM CDT this procedure are in the results section. BASIC METABOLIC PANEL Routine 12/06/2019 Result s for (7) 5:22 AM CDT this procedure are in the results section. POCT-GLUCOSE METER Routine 12/05/2019 Results f or 11:28 PM CDT this procedure are in the results section. HEMOGLOBIN AND STAT 12/05/2019 Results for HEMATOCRIT 7:26 PM CDT this procedure are in the results section. LIPASE Routine 12/05/2019 Results for 7:25 PM CDT this procedure are in the results section. US THORACENTESIS Routine 12/05/2019 Results for 6:00 PM CDT this procedure are in the results section. XR CHEST 1 VIEW STAT 12/05/2019 Results for PORTABLE/BEDSIDE 5:59 PM CDT this proced ure are in the results section. PROTEIN, TOTAL, Routine 12/05/2019 Results for PLEURAL FLUID 5:55 PM CDT this procedure are in the results section. GLUCOSE PLEURAL FLUID Routine 12/05/2019 Result s for 5:55 PM CDT this procedure are in the results section. BODY FLUID CULTURE + Routine 12/05/2019 Results for GRAM STAIN 5:54 PM CDT this procedure are in the results section. BODY FLUID CELL COUNT Routine 12/05/2019 Result s for WITH DIFFERENTIAL 5:54 PM CDT this proce dure are in the results section. LACTATE DEHYDROGENASE Routine 12/05/2019 Result s for (LD), PLEURAL FLUID 5:36 PM CDT this pro cedure are in the results section. POCT-GLUCOSE METER Routine 12/05/2019 Results f or 11:42 AM CDT this procedure are in the results section. POCT-GLUCOSE METER Routine 12/05/2019 Results f or 5:25 AM CDT this procedure are in the results section. CBC W/PLT COUNT & Routine 12/05/2019 Results fo r AUTO DIFFERENTIAL 5:18 AM CDT this proce dure are in the results section. PHOSPHORUS Routine 12/05/2019 Results for 5:18 AM CDT this procedure are in the results section. MAGNESIUM Routine 12/05/2019 Results for 5:18 AM CDT this procedure are in the results section. PROTHROMBIN TIME/INR Routine 12/05/2019 Results for 5:18 AM CDT this procedure are in the results section. BASIC METABOLIC PANEL Routine 12/05/2019 Result s for (7) 5:18 AM CDT this procedure are in the results section. CBC W/PLT COUNT & Routine 12/05/2019 Results fo r AUTO DIFFERENTIAL 5:18 AM CDT this proce dure are in the results section. POCT-GLUCOSE METER Routine 12/04/2019 Results f or 5:48 PM CDT this procedure are in the results section. CT ABDOMEN/PELVIS STAT 12/04/2019 Results fo r WITH IV CONTRAST 1:15 PM CDT this proced ure are in the results section. CBC (HEMOGRAM ONLY) STAT Add-on 12/04/2019 Results for 12:36 PM CDT this procedure are in the results section. HEMOGLOBIN AND Routine 12/04/2019 Results for HEMATOCRIT 12:36 PM CDT this procedure are in the results section. POCT-GLUCOSE METER Routine 12/04/2019 Results f or 11:54 AM CDT this procedure are in the results section. POCT-GLUCOSE METER Routine 12/04/2019 Results f or 5:43 AM CDT this procedure are in the results section. CBC W/PLT COUNT & Routine 12/04/2019 Results fo r AUTO DIFFERENTIAL 4:23 AM CDT this proce dure are in the results section. PROTHROMBIN TIME/INR Routine 12/04/2019 Results for 4:23 AM CDT this procedure are in the results section. BASIC METABOLIC PANEL Routine 12/04/2019 Result s for (7) 4:23 AM CDT this procedure are in the results section. CBC W/PLT COUNT & Routine 12/04/2019 Results fo r AUTO DIFFERENTIAL 4:23 AM CDT this proce dure are in the results section. HEMOGLOBIN AND Routine 12/04/2019 Results for HEMATOCRIT 12:17 AM CDT this procedure are in the results section. PREPARE LEUKO-REDUCED Routine 12/03/2019 Result s for RBC 11:54 PM CDT this procedure are in the results section. POCT-GLUCOSE METER Routine 12/03/2019 Results f or 11:22 PM CDT this procedure are in the results section. HEMOGLOBIN AND Routine 12/03/2019 Results for HEMATOCRIT 6:23 PM CDT this procedure are in the results section. POCT-GLUCOSE METER Routine 12/03/2019 Results f or 5:35 PM CDT this procedure are in the results section. UPPER 12/03/2019 Gastrointestinal ENDOSCOPY,SUBMUCOSAL 3:42 PM CDT hemorrhage, INJECTION unspecified gastrointestinal hemorrhage type POCT-GLUCOSE METER Routine 12/03/2019 Results f or 11:46 AM CDT this procedure are in the results section. HEMOGLOBIN AND Routine 12/03/2019 Results for HEMATOCRIT 11:40 AM CDT this procedure are in the results section. POCT-GLUCOSE METER Routine 12/03/2019 Results f or 6:09 AM CDT this procedure are in the results section. CBC W/PLT COUNT & Routine 12/03/2019 Results fo r AUTO DIFFERENTIAL 4:16 AM CDT this proce dure are in the results section. PROTHROMBIN TIME/INR Routine 12/03/2019 Results for 4:16 AM CDT this procedure are in the results section. BASIC METABOLIC PANEL Routine 12/03/2019 Result s for (7) 4:16 AM CDT this procedure are in the results section. CBC W/PLT COUNT & Routine 12/03/2019 Results fo r AUTO DIFFERENTIAL 4:16 AM CDT this proce dure are in the results section. HEMOGLOBIN AND STAT 12/03/2019 Results for HEMATOCRIT 12:58 AM CDT this procedure are in the results section. TRANSFUSE Routine 12/02/2019 LEUKO-REDUCED RED 11:36 PM CDT BLOOD CELLS POCT-GLUCOSE METER Routine 12/02/2019 Results f or 11:26 PM CDT this procedure are in the results section. US ABDOMINAL WITH LAURA 12/02/2019 Results fo r DOPPLER 8:20 PM CDT this procedure are in the results section. ABORH, MANUAL Routine 12/02/2019 Results for 7:55 PM CDT this procedure are in the results section. TYPE AND SCREEN, Routine 12/02/2019 Results for AUTOMATED 7:55 PM CDT this procedure are in the results section. HEMOGLOBIN AND Routine 12/02/2019 Results for HEMATOCRIT 6:17 PM CDT this procedure are in the results section. POCT-GLUCOSE METER Routine 12/02/2019 Results f or 5:23 PM CDT this procedure are in the results section. POCT-GLUCOSE METER Routine 12/02/2019 Results f or 12:20 PM CDT this procedure are in the results section. HEMOGLOBIN AND Routine 12/02/2019 Results for HEMATOCRIT 12:17 PM CDT this procedure are in the results section. SARS-COV2/RT-PCR STAT 12/02/2019 Results for ([facility]) 8:35 AM CDT this proce dure are in the results section. CBC W/PLT COUNT & Routine 12/02/2019 Results fo r AUTO DIFFERENTIAL 5:40 AM CDT this proce dure are in the results section. PROTHROMBIN TIME/INR Routine 12/02/2019 Results for 5:40 AM CDT this procedure are in the results section. BASIC METABOLIC PANEL Routine 12/02/2019 Result s for (7) 5:40 AM CDT this procedure are in the results section. CBC W/PLT COUNT & Routine 12/02/2019 Results fo r AUTO DIFFERENTIAL 5:40 AM CDT this proce dure are in the results section. CBC W/PLT COUNT & STAT 12/01/2019 Results fo r AUTO DIFFERENTIAL 11:15 PM CDT this proce dure are in the results section. LIPASE Add-On 12/01/2019 Results for 11:15 PM CDT this procedure are in the results section. HEPATIC FUNCTION STAT 12/01/2019 Results for PANEL 11:15 PM CDT this procedure are in the results section. PROTHROMBIN TIME/INR STAT 12/01/2019 Results for 11:15 PM CDT this procedure are in the results section. BASIC METABOLIC PANEL STAT 12/01/2019 Result s for (7) 11:15 PM CDT this procedure are in the results section. CBC W/PLT COUNT & STAT 12/01/2019 Results fo r AUTO DIFFERENTIAL 11:15 PM CDT this proce dure are in the results section. RHYTHM STRIP - SCAN 10/28/2019 12:11 PM CDT POCT-GLUCOSE METER Routine 10/24/2019 Results f or 8:37 AM CDT this procedure are in the results section. CBC (HEMOGRAM ONLY) Routine 10/24/2019 Results for 6:13 AM CDT this procedure are in the results section. PT/APTT Routine 10/24/2019 Results for 6:13 AM CDT this procedure are in the results section. PHOSPHORUS Routine 10/24/2019 Results for 6:13 AM CDT this procedure are in the results section. MAGNESIUM Routine 10/24/2019 Results for 6:13 AM CDT this procedure are in the results section. BASIC METABOLIC PANEL Routine 10/24/2019 Result s for (7) 6:13 AM CDT this procedure are in the results section. POCT-GLUCOSE METER Routine 10/23/2019 Results f or 9:11 PM CDT this procedure are in the results section. POCT-GLUCOSE METER Routine 10/23/2019 Results f or 4:27 PM CDT this procedure are in the results section. POCT-GLUCOSE METER Routine 10/23/2019 Results f or 11:46 AM CDT this procedure are in the results section. POCT-GLUCOSE METER Routine 10/23/2019 Results f or 7:45 AM CDT this procedure are in the results section. CBC (HEMOGRAM ONLY) Routine 10/23/2019 Results for 6:34 AM CDT this procedure are in the results section. PT/APTT Routine 10/23/2019 Results for 6:34 AM CDT this procedure are in the results section. PHOSPHORUS Routine 10/23/2019 Results for 6:34 AM CDT this procedure are in the results section. MAGNESIUM Routine 10/23/2019 Results for 6:34 AM CDT this procedure are in the results section. BASIC METABOLIC PANEL Routine 10/23/2019 Result s for (7) 6:34 AM CDT this procedure are in the results section. CBC W/PLT COUNT & Routine 10/22/2019 Results fo r AUTO DIFFERENTIAL 10:27 PM CDT this proce dure are in the results section. CBC W/PLT COUNT & Routine 10/22/2019 Results fo r AUTO DIFFERENTIAL 10:27 PM CDT this proce dure are in the results section. POCT-GLUCOSE METER Routine 10/22/2019 Results f or 9:30 PM CDT this procedure are in the results section. POCT-GLUCOSE METER Routine 10/22/2019 Results f or 3:36 PM CDT this procedure are in the results section. POCT-GLUCOSE METER Routine 10/22/2019 Results f or 12:14 PM CDT this procedure are in the results section. POCT-GLUCOSE METER Routine 10/22/2019 Results f or 6:51 AM CDT this procedure are in the results section. POCT-GLUCOSE METER Routine 10/22/2019 Results f or 6:27 AM CDT this procedure are in the results section. CBC (HEMOGRAM ONLY) Routine 10/22/2019 Results for 6:24 AM CDT this procedure are in the results section. PT/APTT Routine 10/22/2019 Results for 6:24 AM CDT this procedure are in the results section. PHOSPHORUS Routine 10/22/2019 Results for 6:24 AM CDT this procedure are in the results section. MAGNESIUM Routine 10/22/2019 Results for 6:24 AM CDT this procedure are in the results section. BASIC METABOLIC PANEL Routine 10/22/2019 Result s for (7) 6:24 AM CDT this procedure are in the results section. POCT-GLUCOSE METER Routine 10/21/2019 Results f or 11:48 PM CDT this procedure are in the results section. POCT-GLUCOSE METER Routine 10/21/2019 Results f or 6:40 PM CDT this procedure are in the results section. POCT-GLUCOSE METER Routine 10/21/2019 Results f or 12:29 PM CDT this procedure are in the results section. AMYLASE PERITONEAL STAT 10/21/2019 Results f or FLUID 10:19 AM CDT this procedure are in the results section. AMYLASE PERITONEAL STAT 10/21/2019 Results f or FLUID 10:19 AM CDT this procedure are in the results section. CBC (HEMOGRAM ONLY) Routine 10/21/2019 Results for 9:59 AM CDT this procedure are in the results section. PT/APTT Routine 10/21/2019 Results for 9:59 AM CDT this procedure are in the results section. PHOSPHORUS Routine 10/21/2019 Results for 9:59 AM CDT this procedure are in the results section. MAGNESIUM Routine 10/21/2019 Results for 9:59 AM CDT this procedure are in the results section. BASIC METABOLIC PANEL Routine 10/21/2019 Result s for (7) 9:59 AM CDT this procedure are in the results section. SARS-COV2/RT-PCR Routine 10/21/2019 Results for ([facility]) 7:15 AM CDT this proce dure are in the results section. POCT-GLUCOSE METER Routine 10/21/2019 Results f or 6:57 AM CDT this procedure are in the results section. POCT-GLUCOSE METER Routine 10/21/2019 Results f or 6:28 AM CDT this procedure are in the results section. POCT-GLUCOSE METER Routine 10/21/2019 Results f or 5:58 AM CDT this procedure are in the results section. POCT-GLUCOSE METER Routine 10/21/2019 Results f or 12:05 AM CDT this procedure are in the results section. POCT-GLUCOSE METER Routine 10/20/2019 Results f or 5:46 PM CDT this procedure are in the results section. POCT-GLUCOSE METER Routine 10/20/2019 Results f or 11:45 AM CDT this procedure are in the results section. POCT-GLUCOSE METER Routine 10/20/2019 Results f or 7:04 AM CDT this procedure are in the results section. CBC (HEMOGRAM ONLY) Routine 10/20/2019 Results for 3:39 AM CDT this procedure are in the results section. PT/APTT Routine 10/20/2019 Results for 3:39 AM CDT this procedure are in the results section. PHOSPHORUS Routine 10/20/2019 Results for 3:39 AM CDT this procedure are in the results section. MAGNESIUM Routine 10/20/2019 Results for 3:39 AM CDT this procedure are in the results section. BASIC METABOLIC PANEL Routine 10/20/2019 Result s for (7) 3:39 AM CDT this procedure are in the results section. POCT-GLUCOSE METER Routine 10/20/2019 Results f or 12:18 AM CDT this procedure are in the results section. TRANSFUSION SERVICE 10/19/2019 REPORT - SCAN 6:01 PM CDT POCT-GLUCOSE METER Routine 10/19/2019 Results f or 5:28 PM CDT this procedure are in the results section. MAGNESIUM STAT 10/19/2019 Results for 4:11 PM CDT this procedure are in the results section. PHOSPHORUS STAT 10/19/2019 Results for 4:11 PM CDT this procedure are in the results section. BASIC METABOLIC PANEL STAT 10/19/2019 Result s for (7) 4:11 PM CDT this procedure are in the results section. POCT-GLUCOSE METER Routine 10/19/2019 Results f or 12:30 PM CDT this procedure are in the results section. POCT-GLUCOSE METER Routine 10/19/2019 Results f or 11:56 AM CDT this procedure are in the results section. XR CHEST 1 VIEW LAURA 10/19/2019 Results for PORTABLE/BEDSIDE 8:05 AM CDT this proced ure are in the results section. POCT-GLUCOSE METER Routine 10/19/2019 Results f or 6:37 AM CDT this procedure are in the results section. CBC (HEMOGRAM ONLY) Routine 10/19/2019 Results for 1:29 AM CDT this procedure are in the results section. PT/APTT Routine 10/19/2019 Results for 1:29 AM CDT this procedure are in the results section. BLOOD GAS, ARTERIAL Routine 10/19/2019 Results for 1:29 AM CDT this procedure are in the results section. PHOSPHORUS Routine 10/19/2019 Results for 1:29 AM CDT this procedure are in the results section. MAGNESIUM Routine 10/19/2019 Results for 1:29 AM CDT this procedure are in the results section. BASIC METABOLIC PANEL Routine 10/19/2019 Result s for (7) 1:29 AM CDT this procedure are in the results section. POCT-GLUCOSE METER Routine 10/19/2019 Results f or 12:20 AM CDT this procedure are in the results section. PREPARE RBC STAT 10/18/2019 Results for 11:55 PM CDT this procedure are in the results section. PREPARE RBC STAT 10/18/2019 Results for 11:54 PM CDT this procedure are in the results section. PREPARE RBC STAT 10/18/2019 Results for 11:54 PM CDT this procedure are in the results section. CBC (HEMOGRAM ONLY) Routine 10/18/2019 Results for 8:26 PM CDT this procedure are in the results section. TRANSFUSION SERVICE 10/18/2019 REPORT - SCAN 6:05 PM CDT POCT-GLUCOSE METER Routine 10/18/2019 Results f or 5:16 PM CDT this procedure are in the results section. CBC (HEMOGRAM ONLY) Routine 10/18/2019 Results for 12:20 PM CDT this procedure are in the results section. POCT-GLUCOSE METER Routine 10/18/2019 Results f or 12:01 PM CDT this procedure are in the results section. BLOOD GAS, ARTERIAL Routine 10/18/2019 Results for 5:05 AM CDT this procedure are in the results section. PT/APTT Routine 10/18/2019 Results for 4:09 AM CDT this procedure are in the results section. PHOSPHORUS Routine 10/18/2019 Results for 4:09 AM CDT this procedure are in the results section. MAGNESIUM Routine 10/18/2019 Results for 4:09 AM CDT this procedure are in the results section. BASIC METABOLIC PANEL Routine 10/18/2019 Result s for (7) 4:09 AM CDT this procedure are in the results section. CBC (HEMOGRAM ONLY) Routine 10/18/2019 Results for 4:09 AM CDT this procedure are in the results section. XR CHEST 1 VIEW STAT 10/18/2019 Results for PORTABLE/BEDSIDE 3:48 AM CDT this proced ure are in the results section. BLOOD GAS, ARTERIAL STAT 10/18/2019 Results for 1:22 AM CDT this procedure are in the results section. POCT-GLUCOSE METER Routine 10/18/2019 Results f or 12:42 AM CDT this procedure are in the results section. PT/APTT Routine 10/17/2019 Results for 10:18 PM CDT this procedure are in the results section. BLOOD GAS, ARTERIAL Routine 10/17/2019 Results for 10:18 PM CDT this procedure are in the results section. PHOSPHORUS Routine 10/17/2019 Results for 10:18 PM CDT this procedure are in the results section. MAGNESIUM Routine 10/17/2019 Results for 10:18 PM CDT this procedure are in the results section. BASIC METABOLIC PANEL Routine 10/17/2019 Result s for (7) 10:18 PM CDT this procedure are in the results section. CBC (HEMOGRAM ONLY) Routine 10/17/2019 Results for 10:18 PM CDT this procedure are in the results section. PREPARE PLATELETS STAT 10/17/2019 Results fo r 9:19 PM CDT this procedure are in the results section. PREPARE PLASMA STAT 10/17/2019 Results for 9:19 PM CDT this procedure are in the results section. TRANSFUSE Routine 10/17/2019 LEUKO-REDUCED RED 8:23 PM CDT BLOOD CELLS TRANSFUSE Routine 10/17/2019 LEUKO-REDUCED RED 7:57 PM CDT BLOOD CELLS HGB/HCT (H&H) - STAT STAT 10/17/2019 Results for LAB 7:50 PM CDT this procedure are in the results section. GLUCOSE-STAT LAB STAT 10/17/2019 Results for 7:50 PM CDT this procedure are in the results section. POTASSIUM-STAT LAB STAT 10/17/2019 Results f or 7:50 PM CDT this procedure are in the results section. SODIUM NA-STAT LAB STAT 10/17/2019 Results f or 7:50 PM CDT this procedure are in the results section. BLOOD GAS, ARTERIAL STAT 10/17/2019 Results for 7:50 PM CDT this procedure are in the results section. CALCIUM, IONIZED STAT 10/17/2019 Results for 7:50 PM CDT this procedure are in the results section. RRL CRITICAL LABS STAT 10/17/2019 Results fo r (ABG,NA,K,H&H,GLUCOSE 7:50 PM CDT this p rocedure ) are in the results section. APTT STAT 10/17/2019 Results for 7:38 PM CDT this procedure are in the results section. PROTHROMBIN TIME/INR STAT 10/17/2019 Results for 7:38 PM CDT this procedure are in the results section. TRANSFUSE Routine 10/17/2019 LEUKO-REDUCED RED 7:35 PM CDT BLOOD CELLS PREPARE RBC STAT 10/17/2019 Results for 7:35 PM CDT this procedure are in the results section. TRANSFUSE Routine 10/17/2019 LEUKO-REDUCED RED 7:21 PM CDT BLOOD CELLS HGB/HCT (H&H) - STAT STAT 10/17/2019 Results for LAB 6:51 PM CDT this procedure are in the results section. GLUCOSE-STAT LAB STAT 10/17/2019 Results for 6:51 PM CDT this procedure are in the results section. POTASSIUM-STAT LAB STAT 10/17/2019 Results f or 6:51 PM CDT this procedure are in the results section. SODIUM NA-STAT LAB STAT 10/17/2019 Results f or 6:51 PM CDT this procedure are in the results section. BLOOD GAS, ARTERIAL STAT 10/17/2019 Results for 6:51 PM CDT this procedure are in the results section. CALCIUM, IONIZED STAT 10/17/2019 Results for 6:51 PM CDT this procedure are in the results section. RRL CRITICAL LABS STAT 10/17/2019 Results fo r (ABG,NA,K,H&H,GLUCOSE 6:51 PM CDT this p rocedure ) are in the results section. TRANSFUSE Routine 10/17/2019 LEUKO-REDUCED RED 6:41 PM CDT BLOOD CELLS TYPE AND SCREEN, STAT 10/17/2019 Results for AUTOMATED 5:32 PM CDT this procedure are in the results section. FL FLUORO Routine 10/17/2019 Results for NON-SPECIFIC UP TO 1 5:14 PM CDT this pr ocedure HOUR are in the results section. HGB/HCT (H&H) - STAT Routine 10/17/2019 Results for LAB 4:59 PM CDT this procedure are in the results section. GLUCOSE-STAT LAB Routine 10/17/2019 Results for 4:59 PM CDT this procedure are in the results section. POTASSIUM-STAT LAB Routine 10/17/2019 Results f or 4:59 PM CDT this procedure are in the results section. SODIUM NA-STAT LAB Routine 10/17/2019 Results f or 4:59 PM CDT this procedure are in the results section. BLOOD GAS, ARTERIAL Routine 10/17/2019 Results for 4:59 PM CDT this procedure are in the results section. RRL CRITICAL LABS Routine 10/17/2019 Results fo r (ABG,NA,K,H&H,GLUCOSE 4:59 PM CDT this p rocedure ) are in the results section. TISSUE EXAM AP Routine 10/17/2019 Results for 4:26 PM CDT this procedure are in the results section. HGB/HCT (H&H) - STAT Routine 10/17/2019 Results for LAB 3:20 PM CDT this procedure are in the results section. GLUCOSE-STAT LAB Routine 10/17/2019 Results for 3:20 PM CDT this procedure are in the results section. POTASSIUM-STAT LAB Routine 10/17/2019 Results f or 3:20 PM CDT this procedure are in the results section. SODIUM NA-STAT LAB Routine 10/17/2019 Results f or 3:20 PM CDT this procedure are in the results section. BLOOD GAS, ARTERIAL Routine 10/17/2019 Results for 3:20 PM CDT this procedure are in the results section. RRL CRITICAL LABS Routine 10/17/2019 Results fo r (ABG,NA,K,H&H,GLUCOSE 3:20 PM CDT this p rocedure ) are in the results section. SPLENECTOMY 10/17/2019 Chronic pancreatitis, 1:39 PM CDT unspecified pancreatitis type (HCC) Splenic vein thrombosis CHOLECYSTECTOMY 10/17/2019 Chronic pancreatitis, 1:39 PM CDT unspecified pancreatitis type (HCC) Splenic vein thrombosis POCT-GLUCOSE METER Routine 10/17/2019 Results f or 6:21 AM CDT this procedure are in the results section. POCT-GLUCOSE METER Routine 10/17/2019 Results f or 1:06 AM CDT this procedure are in the results section. CT ABDOMEN/PELVIS Routine 10/16/2019 Results fo r WITH & WITHOUT IV 10:43 AM CDT this proce dure CONTRAST are in the results section. REPORT OF PROCEDURE - 10/15/2019 ENDOSCOPY URL 6:42 PM CDT UPPER 10/15/2019 Acute pancreatitis, ENDOSCOPY,ULTRASOUND 6:02 PM CDT unspecified complication status, unspecified pancreatitis [...] i n the results section . SARS-COV2/RT-PCR (HS & Routine 10/14/2019 4:48 AM Results for [...] i n the results section . SARS-COV2/RT-PCR (HS & Routine 08/26/2019 7:33 PM Results for this REF LABS) CDT procedure are i n the results section . RHYTHM STRIP - SCAN 02/26/2019 4:18 PM ROBOT DESIGNER TRANSFUSION SERVICE 02/19/2019 6:00 PM REPORT - SCAN ROBOT DESIGNER RHYTHM STRIP - SCAN 02/19/2019 11:21 AM ROBOT DESIGNER PREPARE LEUKO-REDUCED Routine 02/18/2019 11:54 PM Results for this RBC ROBOT DESIGNER procedure are i n the results section . TRANSFUSION SERVICE 02/18/2019 6:00 PM REPORT - SCAN ROBOT DESIGNER FERRITIN Routine 02/18/2019 1:36 PM Results for this ROBOT DESIGNER procedure are i n the results section . COMPREHENSIVE METABOLIC STAT 02/18/2019 1:36 PM Results for this PANEL ROBOT DESIGNER procedure are i n the results section . HEMOGLOBIN AND Routine 02/18/2019 12:16 PM Result s for this HEMATOCRIT ROBOT DESIGNER procedure are i n the results section . TRANSFUSE LEUKO-REDUCED Routine 02/17/2019 2:53 PM RED BLOOD CELLS ROBOT DESIGNER TYPE AND SCREEN, Routine 02/17/2019 9:56 AM Resu lts for this AUTOMATED ROBOT DESIGNER procedure are i n the results section . HEMOGLOBIN AND STAT 02/17/2019 6:19 AM Result s for this HEMATOCRIT ROBOT DESIGNER procedure are i n the results section . LIPASE Routine 02/17/2019 4:18 AM Results for this ROBOT DESIGNER procedure are i n the results section . IRON, TIBC, % SAT. Routine 02/17/2019 4:18 AM Re sults for this (WITHOUT FERRITIN) ROBOT DESIGNER procedure are in the results section . TSH/FREE T4 IF INDICATED Routine 02/17/2019 4:18 AM Results for this ROBOT DESIGNER procedure are i n the results section . VITAMIN B12 AND FOLATE Routine 02/17/2019 4:18 AM Results for this ROBOT DESIGNER procedure are i n the results section . BASIC METABOLIC PANEL Routine 02/17/2019 4:18 AM Results for this (7) ROBOT DESIGNER procedure are i n the results section . CBC (HEMOGRAM ONLY) Routine 02/17/2019 4:18 AM R esults for this ROBOT DESIGNER procedure are i n the results section . HEMOGLOBIN AND Routine 02/16/2019 10:19 AM Result s for this HEMATOCRIT ROBOT DESIGNER procedure are i n the results section . LIPASE Add-On 02/16/2019 4:23 AM Results for this ROBOT DESIGNER procedure are i n the results section . COMPREHENSIVE METABOLIC Routine 02/16/2019 4:23 AM Results for this PANEL ROBOT DESIGNER procedure are i n the results section . CBC (HEMOGRAM ONLY) Routine 02/16/2019 4:23 AM R esults for this ROBOT DESIGNER procedure are i n the results section . PROTHROMBIN TIME/INR Routine 02/16/2019 4:23 AM Results for this ROBOT DESIGNER procedure are i n the results section . PT/APTT Routine 02/16/2019 4:23 AM Results for this ROBOT DESIGNER procedure are i n the results section . HEPATIC FUNCTION PANEL Routine 02/16/2019 4:23 AM Results for this ROBOT DESIGNER procedure are i n the results section . REPORT OF PROCEDURE - 02/15/2019 12:51 PM ENDOSCOPY URL ROBOT DESIGNER FL ERCP Routine 02/15/2019 12:32 PM Results for this ROBOT DESIGNER procedure are i n the results section . CYTOLOGY REQUEST Routine 02/15/2019 12:26 PM Resu lts for this ROBOT DESIGNER procedure are i n the results section . CYTOLOGY AP Routine 02/15/2019 12:26 PM Results for this ROBOT DESIGNER procedure are i n the results section . CBC W/PLT COUNT & AUTO STAT 02/15/2019 11:55 AM Results for this DIFFERENTIAL ROBOT DESIGNER procedure are i n the results section . CBC W/PLT COUNT & AUTO STAT 02/15/2019 11:55 AM Results for this DIFFERENTIAL ROBOT DESIGNER procedure are i n the results section . ERCP,BILIARY STENT 02/15/2019 11:00 AM Jaundice ROBOT DESIGNER ERCP,BALLOON SWEEPING 02/15/2019 11:00 AM Jaundice ROBOT DESIGNER ERCP 02/15/2019 11:00 AM Jaundice ROBOT DESIGNER PROTHROMBIN TIME/INR Routine 02/15/2019 6:00 AM Results for this ROBOT DESIGNER procedure are i n the results section . PT/APTT Routine 02/15/2019 6:00 AM Results for this ROBOT DESIGNER procedure are i n the results section . BASIC METABOLIC PANEL Routine 02/15/2019 6:00 AM Results for this (7) ROBOT DESIGNER procedure are i n the results section . HEPATIC FUNCTION PANEL Routine 02/15/2019 6:00 AM Results for this ROBOT DESIGNER procedure are i n the results section . (CELLAVISION MANUAL Routine 02/14/2019 6:24 AM R esults for this DIFF) ROBOT DESIGNER procedure are i n the results section . CBC W/PLT COUNT & AUTO Routine 02/14/2019 6:24 AM Results for this DIFFERENTIAL ROBOT DESIGNER procedure are i n the results section . CBC W/PLT COUNT & AUTO Routine 02/14/2019 6:24 AM Results for this DIFFERENTIAL ROBOT DESIGNER procedure are i n the results section . PROTHROMBIN TIME/INR Routine 02/14/2019 4:34 AM Results for this ROBOT DESIGNER procedure are i n the results section . PT/APTT Routine 02/14/2019 4:34 AM Results for this ROBOT DESIGNER procedure are i n the results section . BASIC METABOLIC PANEL Routine 02/14/2019 4:34 AM Results for this (7) ROBOT DESIGNER procedure are i n the results section . HEPATIC FUNCTION PANEL Routine 02/14/2019 4:34 AM Results for this ROBOT DESIGNER procedure are i n the results section . after 12/12/2018 Results REPORT OF PROCEDURE - ENDOSCOPY URL (12/08/2019 8:16 AM ROBOT DESIGNER) Narrative Performed At This result has an attachment that is no t available. POC-Glucose meter (12/07/2019 12:44 PM ROBOT DESIGNER)Only the most recent of54 results within the time period is included. POC-Glucose Meter 93 70 - 110 mg/dL [facility] Comment: [facility] : TESTED AT [facility] [address] [facility], [address] MEDICAL CENTER : Pole Peeling Machine Operator Helper/Health Information Director ID = [id number] for DELFINO GARCES Specimen Blood Performing Organization Address City/State/Zipcode Phone Number [facility] [address] [place], [place] [id number] CENTER CBC with platelet count + automated diff (12/07/2019 5:47 AM ROBOT DESIGNER)Only the most recent of11 resultswithin the time period is included. Pathologist Sig nature WBC 9.5 3.5 - 10.5 [facility] K/L [facility] RBC 2.88 (L) 4.63 - 6.08 [facility] M/L [facility] Hemoglobin 9.0 (L) 13.7 - 17.5 [facility] GM/DL [facility] Hematocrit 27.5 (L) 40.1 - 51.0 % [facility] MCV 95.5 (H) 79.0 - 92.2 fL [facility] MCH 31.3 25.7 - 32.2 pg [facility] MCHC 32.7 32.3 - 36.5 [facility] GM/DL [facility] RDW 17.2 (H) 11.6 - 14.4 % [facility] Platelets 676 (H) 150 - 450 K/CU [facility] MM [facility] MPV 10.0 9.4 - 12.4 fL [facility] nRBC 0 0 - 0 /100 WBC [facility] % Neutros 62 % [facility] % Lymphs 15 % [facility] % Monos 13 % [facility] % Eos 8 % [facility] % Baso 1 % [facility] # Neutros 5.88 (H) 1.78 - 5.38 [facility] K/L [facility] # Lymphs 1.41 1.32 - 3.57 [facility] K/L [facility] # Monos 1.24 (H) 0.30 - 0.82 [facility] K/L [facility] # Eos 0.79 (H) 0.04 - 0.54 [facility]/L [facility] # Baso 0.09 (H) 0.01 - 0.08 [facility] Immature 1 0 - 1 % [facility] Specimen Blood Performing Organization Address City/State/Zipcode Phone Number [address] [address] CENTER Prothrombin time/INR (12/07/2019 5:47 AM ROBOT DESIGNER)Only the most recent of11 results within the time period is included. Pathologist Sig nature Protime 14.7 (H) 11.9 - 14.2 seconds [facility] INR 1.18 <=5.90 [facility] Specimen Blood Narrative Performed At Effective 07/03/2018: PT Reference Range [facility] Change New: 11.9-14.2 Previous: 11.7-14.7 RECOMMENDED COUMADIN/WARFARIN INR THERAPY RANGES STANDARD DOSE: 2.0-3.0 Includes: PROPHYLAXIS for venous thrombosis, systemic embolization; TREATMENT for venous thrombosis and/or pulmonary embolus. HIGH RISK: Target INR is 2.5-3.5 for patients wiht mechanical heart valves. Performing Organization Address City/State/Zipcode Phone Number [address] [address] CENTER Phosphorus (12/07/2019 5:47 AM ROBOT DESIGNER)Only the most recent of12 resultswithin the time period is included. Pathologist Sig nature Phosphorus 2.8 2.3 - 4.7 mg/dL [facility] Specimen Blood Narrative Performed At [employer] Machine Operator Helper ID - JOSE DANIEL [facility] Performing Organization Address City/State/Zipcode Phone Number [address] [address] CENTER Magnesium (12/07/2019 5:47 AM ROBOT DESIGNER)Only the most recent of13 resultswithin the time period is included. Pathologist Sig nature Magnesium 2.1 1.6 - 2.6 mg/dL [facility] Specimen Blood Narrative Performed At [employer] Machine Operator Helper [facility] - [facility] Performing Organization Address City/[facility]/Zipcode Phone Number [address] [address] CENTER Basic Metabolic Panel (12/07/2019 5:47 AM ROBOT DESIGNER)Only the most recent of21 results within the time period is included. Sodium 136 136 - 145 meq/L [facility] Potassium 4.5 3.5 - 5.1 meq/L [facility] Chloride 107 98 - 107 meq/L [facility] CO2 25 22 - 29 meq/L [facility] BUN 7 7 - 21 mg/dL [facility] Creatinine 0.46 (L) 0.57 - 1.25 [facility] mg/dL [facility] Glucose 96 70 - 105 mg/dL [facility] Calcium 7.6 (L) 8.4 - 10.2 [facility] mg/dL [facility] EGFR 215Comment: mL/min/1.73 sq [facility] ESTIMATED GFR IS NOT [facility] ACCURATE [place] CREATININE CLEARANCE IN PREDICTING GLOMERULAR FILTRATION RATE. ESTIMATED GFR IS NOT APPLICABLE FOR DIALYSIS PATIENTS. Specimen Blood Narrative Performed At [employer] Machine Operator Helper ID - [facility] Performing Organization Address City/State/Zipcode Phone Number [address] [address] [place] Hemoglobin and hematocrit (12/06/2019 8:41 PM CDT)Only the most recent of12 resultswithin the time period is included. Pathologist Sig nature Hemoglobin 9.8 (L) 13.7 - 17.5 GM/DL [facility] Hematocrit 30.0 (L) 40.1 - 51.0 % [facility] Specimen Blood Narrative Performed At [employer] Peeling Machine Operator Helper ID - [id number] [facility] Performing Organization Address City/State/Zipcode Phone Number [facility] [address] [place] [address] CENTER Lipase (12/05/2019 7:25 PM CDT)Only the most recent of5 resultswithin the time period is included. Pathologist Sig nature Lipase 10 8 - 78 U/L [facility] Specimen Blood Narrative Performed At [employer] Machine Operator Helper ID - DB [facility] Performing Organization Address City/State/Zipcode Phone Number [facility] [address], [place] [phone] [place] US thoracentesis (12/05/2019 6:00 PM CDT) Specimen Narrative Performed At FINAL REPORT [facility] Exam: Ultrasound guided thoracentesis Clinical History: Right-sided Pleural Ef fusion Retail Operations Manager: Michelle Eric PA-C Supervising Physician: Farhat Tee MD Consent: Benefits and risks were expla ined to the patient who gave consent to the procedure. Complication: None Immediate Procedure: The patient was placed in l eft lateral decubitusposition. The right posterior chest was prepped an d draped in usual sterile fashion. 2% lidocaine was used as local anesthetic. Under ultrasound guidance, a thoracentesis catheter was i nserted into the pleural cavity. Approximately 550 cc of cloudy y ellow pleural fluid was aspirated. The catheter was removed. The specimen was sent to the laboratory for further analysis. The pat ient tolerated the procedure well without any adverse reaction. A STA T chest x-ray was ordered. The patient left the department in stabl e condition. Impression: Ultrasound guided right-si ded thoracentesis. Signed: Farhat Tee MD Report Verified Date/Time: 12/06/2019 13:05:38 Reading Location: [facility] [id number] Ultrasoun d Reading Room Electronically signed by: MD ab OROZCO n 12/06/2019 01:05 PM Procedure Note Interface, External Ris In - 12/06/2019 1:08 PM CDT FINAL REPORT Exam: Ultrasound guided thoracentesis Clinical History: Right-sided Pleural Ef fusion Retail Operations Manager: Michelle Eric PA-C Supervising Physician: Farhat Tee MD Consent: Benefits and risks were explai josé luis to the patient who gave consent to the procedure. Complication: None Immediate Procedure: The patient was placed in le ft lateral decubitusposition. The right posterior chest was prepped an d draped in usual sterile fashion. 2% lidocaine was used as local anesthetic. Under ultrasound guidance, a thoracentesis catheter was i nserted into the pleural cavity. Approximately 550 cc of cloudy y ellow pleural fluid was aspirated. The catheter was removed. The specimen was sent to the laboratory for further analysis. The pat ient tolerated the procedure well without any adverse reaction. A STA T chest x-ray was ordered. The patient left the department in stabl e condition. Impression: Ultrasound guided right-jennifer ed thoracentesis. Signed: Farhat Tee MD Report Verified Date/Time: 12/06/2019 1 3:05:38 Reading Location: [facility] [id number] Ultrasoun d Reading Room Performing Organization Address City/State/Zipcode Phone Number [employer] XR chest 1 view portable / bedside (12/05/2019 5:59 PM CDT)Only the most recent of3 resultswithin the time period is included. Specimen Narrative Performed At FINAL REPORT [employer] RAD, CHEST, 1 VIEW, NON DEPT TECHNIQUE: Frontal view of the chest. INDICATION: post right sided thoracentes is. COMPARISON: 10/19/2019 FINDINGS/IMPRESSION: Lines/Tubes: None Lungs/pleura: Clear and well expanded. P ossible small left pleural effusion, no evident pleural effusion on the right. No pneumothorax. Questionable small calcified pulmonary n odule projecting over the right upper lobe. Heart and Mediastinum: Unchanged. Soft Tissues and Bones: Metallic clip pr ojects over the left upper abdomen.. Signed: Sonal Box MD Report Verified Date/Time: 12/05/2019 19:34:19 Reading Location: [address] Reading Room Procedure Note Interface, External Ris In - 12/05/2019 7:37 PM CDT FINAL REPORT RAD, CHEST, 1 VIEW, NON DEPT TECHNIQUE: Frontal view of the chest. INDICATION: post right sided thoracentes is. COMPARISON: 10/19/2019 FINDINGS/IMPRESSION: Lines/Tubes: None Lungs/pleura: Clear and well expanded. P ossible small left pleural effusion, no evident pleural effusion on the right. No pneumothorax. Questionable small calcified pulmonary n odule projecting over the right upper lobe. Heart and Mediastinum: Unchanged. Soft Tissues and Bones: Metallic clip pr ojects over the left upper abdomen.. Signed: Sonal Box MD Report Verified Date/Time: 12/05/2019 1 9:34:19 Reading Location: [address] Reading Room Performing Organization Address City[facility] Phone Number [facility] Protein, Total, Pleural Fluid (12/05/2019 5:55 PM CDT) PROTEIN, TOTAL, 1.1 [facility] PLEURAL FLUID Comment: INC[facility]PORATED Reference range is not defin ed and interpretation must be performed in the consideration of the pathophysiology of the analyte and the clinical context. TEST PERFORMED AT [facility] Specimen Body Fluid - Structure of right pleural cavity (body structure) Narrative Performed At Reference range is not defined and interpretation must [facility] be performed in the consideration of the pathophysiology of the analyte and the clinical context. TEST PERFORMED AT [facility] L AB Performing Organization Address City/[facility]/Zipcode Phone Number [facility] [place] [address] [facility] [id number] [address] [facility] Glucose Pleural Fluid (12/05/2019 5:55 PM CDT) Glucose, Pleural 114 mg/dL [facility] Fluid Comment: INC[facility]PORATED Reference range approximates that found in serum. Specimen Body Fluid - Structure of right pleural cavity (body structure) Narrative Performed At Performing Lab [facility] EZ [facility] [address] [place] [address] Elma Herman MD, PhD, VENKATA Performing Organization Address City/[facility]/Zipcode Phone Number [place] [address] INCORPORATED [address] [facility] Body fluid culture + gram stain (12/05/2019 5:54 PM CDT) Result No growth [facility] Gram Stain Result <1+ White blood [facility] cells seen [facility] Gram Stain Result No organisms seen [facility] Specimen Body Fluid - Structure of right pleural cavity (body structure) Narrative Performed At [facility] Performing Organization Address City/[facility] Phone Number [facility] [address] [place] [address] CENTER Body fluid cell count with differential (12/05/2019 5:54 PM CDT) Appearance Slightly Cloudy Clear [facility] (A) [facility] Color Straw Colorless, [facility] Straw [facility] RBCs 170 (H) <=1 /cu mm [facility] Adjusted WBC Count 455 (H) <=5 /cu mm [facility] Lining Cells 5 (H) <=1 /cu mm [facility] % Segs 4 % [facility] % Lymphs 63 % [facility] % Monos 31 % [facility] % Eos 2 % [facility] % Baso 0 % [facility] Container Body EDTA Tube [facility] Specimen Body Fluid - Structure of right pleural cavity (body structure) Performing Organization Address [facility] Phone Number [facility] [address] [place] [address] CENTER Lactate Dehydrogenase (LD), Pleural Fluid (12/05/2019 5:36 PM CDT) Lactate 36 See Note: [facility] Dehydrogenase (LD), Comment: U/L INC[facility]PORATED Pleural Fluid Reference Range: TRANSUDATE: <113 EXUDATE: >113 SAMPLE SLIGHTLY LIPEMIC. Specimen Body Fluid - Structure of right pleural cavity (body structure) Narrative Performed At Performing Lab [facility] [place] [facility] te [address] [place] [address] Elma Herman MD, PhD, VENKATA Performing Organization Address [facility] Cent[facility]ode Phone Number [place] [address] INCORPORATED [address] [facility] [address] abdomen/pelvis with IV contrast (12/04/2019 1:15 PM CDT) Specimen Narrative Performed At FINAL REPORT [employer] CT of the abdomen and pelvis, with contr ast Clinical History: Abdominal pain, acut e, nonlocalized Technique: CT of the abdomen and pelvis is performed with intravenous contrast administration. This exam was performed according to our departmental dose optimization program w hich includes automated exposure control, adjustment of the mA a nd/or kV according to patient's size and/or use of iterative r econstructive technique. Comparison Film: October 16, 2019 an d July 13, 2018, June 05, 2018 Discussion: There is a small left effusion, and a mo derate to large right effusion, with relaxation atelectasis of both lower lobes. No liver lesion is identified. No biliar y ductal dilatation. Gallbladder is either contracted, or abs ent. Proximal main portal vein is narrowed, similar to the prior e xam. There is atrophy of the pancreatic paren chyma. Again noted is a rind of soft tissue thickening around the carlos creatic parenchyma which may reflect granulation tissue due to prior pancreatitis, correlate clinically to exclude superimposed acute inflammation. Spleen has been. There is a tiny ring en hancing fluid collection that extends from the pancreatic tail to the splenic bed, possibly a pseudocyst versus postsurgical seroma. There is marked gastric fold thickening with apparent submucosal edema. The descending portion of the duo denum also appears walled. No adjacent fluid collection to suggest per foration. No bowel obstruction. The right and transverse co vj also appears mildly thick walled versus underdistended. Normal bertin endix. In the pelvis, bladder, prostate and hilda inal vesicles are unremarkable. There is trace ascites. No free air, or lymphadenopathy. Bony structures are intact. Impression: Status post splenectomy. A tiny rim-enha ncing fluid collection extending from the pancreatic tail to th e splenic bed may reflect pseudocysts, or seroma. Pancreatic atrophy. Rim of peripancreati c soft tissue thickening probably reflects granulation tissue tis idania related to prior pancreatitis, correlate clinically to ex clude acute inflammation. Small left, moderate to large right pleu ral effusions. Trace ascites. Prominent gastric fold thickening with s ubmucosal edema; there is also wall thickening of the descending d uodenum. Additionally, question mild wall thickening versus und erdistention of the right and transverse colon. Signed: Ramona Miller MD Report Verified Date/Time: 12/04/2019 14:36:28 Reading Location: [facility] C013X [facility] Reading Room Procedure Note Interface, External Ris In - 12/04/2019 2:38 PM CDT FINAL REPORT CT of the abdomen and pelvis, with contr ast Clinical History: Abdominal pain, acute , nonlocalized Technique: CT of the abdomen and pelvis is performed with intravenous contrast administration. This exam was performed according to our departmental dose optimization program w hich includes automated exposure control, adjustment of the mA a nd/or kV according to patient's size and/or use of iterative r econstructive technique. Comparison Film: October 16, 2019 and July 13, 2018, June 05, 2018 Discussion: There is a small left effusion, and a mo derate to large right effusion, with relaxation atelectasis of both lower lobes. No liver lesion is identified. No biliar y ductal dilatation. Gallbladder is either contracted, or abs ent. Proximal main portal vein is narrowed, similar to the prior e xam. There is atrophy of the pancreatic paren chyma. Again noted is a rind of soft tissue thickening around the carlos creatic parenchyma which may reflect granulation tissue due to prior pancreatitis, correlate clinically to exclude superimposed acute inflammation. Spleen has been. There is a tiny ring en hancing fluid collection that extends from the pancreatic tail to the splenic bed, possibly a pseudocyst versus postsurgical seroma. There is marked gastric fold thickening with apparent submucosal edema. The descending portion of the duo denum also appears walled. No adjacent fluid collection to suggest per foration. No bowel obstruction. The right and transverse co vj also appears mildly thick walled versus underdistended. Normal bertin endix. In the pelvis, bladder, prostate and hilda inal vesicles are unremarkable. There is trace ascites. No free air, or lymphadenopathy. Bony structures are intact. Impression: Status post splenectomy. A tiny rim-enha ncing fluid collection extending from the pancreatic tail to th e splenic bed may reflect pseudocysts, or seroma. Pancreatic atrophy. Rim of peripancreati c soft tissue thickening probably reflects granulation tissue tis idania related to prior pancreatitis, correlate clinically to ex clude acute inflammation. Small left, moderate to large right pleu ral effusions. Trace ascites. Prominent gastric fold thickening with s ubmucosal edema; there is also wall thickening of the descending d uodenum. Additionally, question mild wall thickening versus und erdistention of the right and transverse colon. Signed: Ramona Miller MD Report Verified Date/Time: 12/04/2019 1 4:36:28 Reading Location: [facility] C013X [facility] Reading Room Performing Organization Address City/State/Zipcode Phone Number GE RIS CBC (Hemogram only) (12/04/2019 12:36 PM CDT)Only the most recent of14 results within the time period is included. Pathologist Sig nature WBC 6.6 3.5 - 10.5 K/L [facility] RBC 3.11 (L) 4.63 - 6.08 M/L [facility] Hemoglobin 9.5 (L) 13.7 - 17.5 GM/DL [facility] Hematocrit 28.7 (L) 40.1 - 51.0 % [facility] MCV 98.7 (H) 79.0 - 92.2 fL [facility] MCH 30.5 25.7 - 32.2 pg [facility] MCHC 30.9 (L) 32.3 - 36.5 GM/DL [facility] RDW 17.8 (H) 11.6 - 14.4 % [facility] Platelets 599 (H) 150 - 450 K/CU MM [facility] MPV 11.4 9.4 - 12.4 fL [facility] nRBC 1 (H) 0 - 0 /100 WBC [facility] Specimen Blood Performing Organization Address City/State/Zipcode Phone Number [facility] [address] [place] [address] CENTER Prepare Leuko-Red RBC (12/03/2019 11:54 PM CDT)Only the most recent of2 results within the time period is included. Pathologist Sig nature CROSSMATCH COMPATIBLE SAFETRACE TX Unit ABO A Pos SAFETRACE TX UNIT NUMBER [id number] SAFETRACE [place] Status TX_TIMEINCHART SAFETRACE [place] Blood Bank Product RED BLOOD CELLS SAFETRACE [place] PRODUCT CODE [id number] SAF[place]ACE [place] Specimen Other Performing Organization Address [facility] Cent[facility]ode Phone Number [employer] [place] Transfuse Leuko-Red RBC (12/02/2019 11:36 PM CDT)Only the most recent of7 resultswithin the time period is included.US abdominal with doppler (12/02/2019 8:20 PM CDT) Specimen Narrative Performed At FINAL REPORT [employer] History: Upper GI bleed, concern for por lynda venous occlusion Abdominal ultrasound dated 12/02/2019 Comparison: 07/28/2018 Comment: Real-time transabdominal ultr asound of the abdomen was performed. Liver: 14.5 cm , normal. Normal echogeni city. No focal lesions. Gallbladder: Absent. Biliary tree: No intrahepatic ductal dil atation. CBD: 4 mm. MPV: 9 mm Spleen: Absent. Pancreas: Obscured by bowel gas Right kidney: 9.0 x 4.6 x 4.2 cm. Normal echogenicity. Left kidney: 10.0 x 4.3 x 4.3 cm. Normal echogenicity. No ascites is present in the abdomen. There is a right pleural effusion. Real-time Webster scale, color and spectral doppler ultrasound of the abdomen was performed to evaluate viscer al blood flow. Main portal vein measures 0.9 cm in diam eter. There is hepatopetal flow in the main portal vein with veloci ty 37.6 cm/sec. The right and left intrahepatic portal veins are p atent with hepatopetal flow. The splenic vein is not visualized. Proper hepatic artery, right hepatic art shaun, and left hepatic artery are patent with resistive indices 0.5, 0 .5, and 0.5 respectively. IVC, Hepatic venous confluence, right HV , middle HV and left HV are patent with appropriate flow. The visualized abdominal aorta is normal in caliber. Impression: Previous cholecystectomy and splenectomy . The splenic vein is nonvisualized, proba jessie secondary to previous splenectomy. The abdominal Doppler evalu ation is otherwise unremarkable. Right pleural effusion. Signed: Rosalia Glass MD Report Verified Date/Time: 12/03/2019 01:27:24 Procedure Note Interface, External Ris In - 12/03/2019 1:29 AM CDT FINAL REPORT History: Upper GI bleed, concern for por lynda venous occlusion Abdominal ultrasound dated 12/02/2019 Comparison: 07/28/2018 Comment: Real-time transabdominal ultra sound of the abdomen was performed. Liver: 14.5 cm , normal. Normal echogeni city. No focal lesions. Gallbladder: Absent. Biliary tree: No intrahepatic ductal dil atation. CBD: 4 mm. MPV: 9 mm Spleen: Absent. Pancreas: Obscured by bowel gas Right kidney: 9.0 x 4.6 x 4.2 cm. Normal echogenicity. Left kidney: 10.0 x 4.3 x 4.3 cm. Normal echogenicity. No ascites is present in the abdomen. There is a right pleural effusion. Real-time Webster scale, color and spectral doppler ultrasound of the abdomen was performed to evaluate viscer al blood flow. Main portal vein measures 0.9 cm in diam eter. There is hepatopetal flow in the main portal vein with veloci ty 37.6 cm/sec. The right and left intrahepatic portal veins are p atent with hepatopetal flow. The splenic vein is not visualized. Proper hepatic artery, right hepatic art shaun, and left hepatic artery are patent with resistive indices 0.5, 0 .5, and 0.5 respectively. IVC, Hepatic venous confluence, right HV , middle HV and left HV are patent with appropriate flow. The visualized abdominal aorta is normal in caliber. Impression: Previous cholecystectomy and splenectomy . The splenic vein is nonvisualized, proba jessie secondary to previous splenectomy. The abdominal Doppler evalu ation is otherwise unremarkable. Right pleural effusion. Signed: Rosalia Glass MD Report Verified Date/Time: 12/03/2019 0 1:27:24 Performing Organization Address [facility]/Zipcode Phone Number GE [facility] Type and screen, automated (12/02/2019 7:55 PM CDT)Only the most recent of3 resultswithin the time period is included. Pathologist Sig nature Ab Scrn NEGATIVE [facility] DICAL [place] Specimen Blood Performing Organization Address [facility]/Zipcode Phone Number [facility] [address] [place] [address] ABORH, manual (12/02/2019 7:55 PM CDT) Pathologist Sig nature ABO Grouping A [facility] DICAL [place] Rh Factor POS [facility] DICAL [place] Specimen Blood Performing Organization Address [facility]/Zipcode Phone Number [facility] [address] [place] [address] SARS-CoV2/RT-PCR (Asymptomatic ONLY) (12/02/2019 8:35 AM CDT)Only the most recent of4 resultswithin the time period is included. SARS-COV2/RT-PCR Negative Not Detected, [facility] Negative, [facility] MEDICAL external report CENTER for linked test SARS-COV-2 [facility] PERFORMING LAB [facility] Specimen Other - Nasopharyngeal wall structure (b devan structure) Narrative Performed At Negative result for this test determines that [facility] SARS-CoV-2 RNA was not present in the [...] the Act. Fact Sheet for Healthcare Providers: https://www.RallyOn.com/sites/default/files/pro duct/documents/Fact_Sheet_HC_Providers_Lyra_SA RS-CoV-2.pdf Fact Sheet for Healthcare Patients: https://www.[employer]allyOn.com/sites/default/files/pro duct/documents/Fact_Sheet_Patients_Lyra_SARS-C oV-2.pdf Performing Laboratory: [facility] [address] [place] [address] Performing Organization Address City/State/Zipcode Phone Number [facility] [address], [place] [id number] [place] Hepatic function panel (12/01/2019 11:15 PM CDT)Only the most recent of6 results within the time period is included. Pathologist Sig nature Protein, Total 3.8 (L) 6.0 - 8.3 gm/dL [facility] Albumin 1.6 (L) 3.5 - 5.0 g/dL [facility] Total Bilirubin 0.4 0.2 - 1.2 mg/dL [facility] Bilirubin, Direct 0.3 0.1 - 0.5 mg/dL [facility] Alkaline Phosphatase 108 40 - 150 U/L [facility] AST 11 5 - 34 U/L [facility] ALT <6 (L) 6 - 55 U/L [facility] Specimen Blood Narrative Performed At Pole Peeling Machine Operator Helper ID - PIAYA L [facility]ENTER Performing Organization Address City/State/Zipcode Phone Number [facility] [address] [place] [address] [place] RHYTHM STRIP - SCAN (10/28/2019 12:11 PM CDT)Only the most recent of3 results within the time period is included. Narrative Performed At This result has an attachment that is no t available. PT/aPTT (10/24/2019 6:13 AM CDT)Only the most recent of13 resultswithin the time period is included. Pathologist Sig nature Protime 20.3 (H) 11.9 - 14.2 seconds [facility] INR 1.79 <=5.90 [facility] PTT 49.0 (H) 22.5 - 36.0 seconds [facility] Specimen Blood Narrative Performed At Effective 07/03/2018: PT Reference Range [facility] Change New: 11.9-14.2 Previous: 11.7-14.7 RECOMMENDED COUMADIN/WARFARIN INR THERAPY RANGES STANDARD DOSE: 2.0-3.0 Includes: PROPHYLAXIS for venous thrombosis, systemic embolization; TREATMENT for venous thrombosis and/or pulmonary embolus. HIGH RISK: Target INR is 2.5-3.5 for patients wiht mechanical heart valves. Performing Organization Address [facility]/Zipcode Phone Number [address] [address] [place] Amylase Peritoneal Fluid (10/21/2019 10:19 AM CDT)Only the most recent of2 resultswithin the time period is included. Pathologist Sig nature AMYLASE, PERITONEAL 9 See Comment U/L [facility] FLUID [facility] Specimen Body Fluid - Peter - Mathur drain, becca ce (physical object) Narrative Performed At Amylase activity in peritoneal fluids of [facility] non-pancreatic origin is often less than or CENTER equal to the amylase activity in blood, whereas elevated amylase activity has been reported in fluid of pancreatic origin (five-folds or higher compared to contemporaneously collected blood specimen). This test has been modified from the black pickler's instructions and its performance characteristics were determined by [facility]. The laboratory is regulated under CLIA as qualified to perform high-complexity testing. This test has not been cleared or approved by the U.S. Food and Drug Administration. The reference intervals and other method performance specifications are unavailable for amylase in peritoneal fluid. Comparison of this result with the blood amylase is recommended. Pole Peeling Machine Operator Helper ID - ROSIANG Performing Organization Address [facility] Centercode Phone Number [address] [address] [place] TRANSFUSION SERVICE REPORT - SCAN (10/19/2019 6:01 PM CDT)Only the most recent of4 resultswithin the time period is included. Narrative Performed At This result has an attachment that is no t available. Blood gas, arterial (10/19/2019 1:29 AM CDT)Only the most recent of8 results within the time period is included. Pathologist Sig nature pH, Arterial 7.45 7.35 - 7.45 [facility] pCO2, Arterial 30 (L) 35 - 45 mmHg [facility] pO2, Arterial 166 (H) 80 - 90 mmHg [facility] O2 Sat, Arterial 99.2 (H) 96.0 - 97.0 % [facility] HCO3, Arterial 20 (L) 21 - 29 mmol/L [facility] Base Excess, Arterial -3.0 (L) -2.0 - 3.0 [facility] mmol/L [facility] Patient Temperature 37.0 C [facility] FIO2 40.0 % [facility] Specimen Blood, Arterial Performing Organization Address [facility] Cent[facility] Phone Number [address] [address] CENTER Prepare RBC (10/18/2019 11:55 PM CDT)Only the most recent of4 resultswithin the time period is included. Pathologist Sig nature CROSSMATCH COMPATIBLE SAFETRACE TX Unit ABO A Pos SAFETRACE TX UNIT NUMBER [id number] SAFETRACE TX Status RETURNED FROM ISSUE SAFETRACE [place] Blood Bank Product RED BLOOD CELLS SAFETRACE TX PRODUCT CODE [id number] SAFETRACE [place] CROSSMATCH COMPATIBLE SAFETRACE TX Unit ABO A Pos SAFETRACE TX UNIT NUMBER [id number] SAFETRACE TX Status TX_TIMEINCHART SAFETRACE [place] Blood Bank Product RED BLOOD CELLS SAFETRACE [place] PRODUCT CODE [id number] SAFETRACE [place] Performing Organization Address [facility] Phone Number [employer] [place] Prepare PLT (10/17/2019 9:19 PM CDT) Pathologist Sig nature Unit ABO O Pos SAFETRACE [place] UNIT NUMBER [id number] SAFETRACE [place] Status RETURNED FROM ISSUE SAFETRACE [place] Blood Bank Product PLATELETS SAFETRACE [place] PRODUCT CODE [id number] SAFET[place]ACE [place] Performing Organization Address [facility] Phone Number [employer] [place] Prepare plasma (10/17/2019 9:19 PM CDT) Pathologist Sig nature Unit ABO A Pos SAFETRACE [place] UNIT NUMBER [id number] SAF[place] Status RETURNED FROM ISSUE SAFETRACE [place] Blood Bank Product FFP SAFETRACE [place] PRODUCT CODE [id number] SAFETRACE TX Unit ABO A Pos SAFETRACE TX UNIT NUMBER [id number] SAFETRACE TX Status RETURNED FROM ISSUE SAFETRACE [place] Blood Bank Product FFP SAFETRACE [place] PRODUCT CODE [id number] SAFETRACE [place] Performing Organization Address [facility] Phone Number [employer] [place] Potassium-Stat Lab (10/17/2019 7:50 PM CDT)Only the most recent of4 results within the time period is included. Pathologist Sig nature Potassium 4.5 3.6 - 5.5 meq/L [facility] Specimen Blood, Arterial Performing Organization Address [facility] Phone Number [address] [address] [place] Sodium Na-Stat Lab (10/17/2019 7:50 PM CDT)Only the most recent of4 results within the time period is included. Pathologist Sig nature Sodium 135 (L) 136 - 145 meq/L [facility] Specimen Blood, Arterial Performing Organization Address [facility] Phone Number [address] [address] [place] Glucose-Stat Lab (10/17/2019 7:50 PM CDT)Only the most recent of4 resultswithin the time period is included. Pathologist Sig nature Glucose 182 (H) 70 - 110 mg/dL [facility] Specimen Blood, Arterial Performing Organization Address [facility] Phone Number [address] [address] CENTER HGB/HCT (H&H)-Stat Lab (10/17/2019 7:50 PM CDT)Only the most recent of4 resultswithin the time period is included. Pathologist Sig nature Hemoglobin 13.9 13.0 - 16.8 g/dL [facility] Hematocrit 41.0 40.0 - 50.0 % [facility] Specimen Blood, Arterial Performing Organization Address City[facility]/Zipcode Phone Number [address] [address] [place] Calcium, Ionized (10/17/2019 7:50 PM CDT)Only the most recent of2 resultswithin the time period is included. Pathologist Sig nature Calcium, Ion 1.65 (HH) 1.12 - 1.27 mmol/L [facility] pH, Blood 7.25 [facility] Specimen Blood Performing Organization Address [facility]/Zipcode Phone Number [address] [address] CENTER aPTT (10/17/2019 7:38 PM CDT) Pathologist Sig nature PTT 38.7 (H) 22.5 - 36.0 seconds [facility] Specimen Blood Performing Organization Address City/[facility] Centercode Phone Number [address] [address] [place] FL fluoro non-specific up to 1 hour [...] patient radiation dose information. Performing Organization Address [facility] Centercode Phone Number GE [facility] Tissue Exam (10/17/2019 4:26 PM CDT) Case Report Surgical Pathology Report Case: [id number] [facility] Authorizing Provider: Marc Mathews MD Collected: 10/17/2019 04:26 PM [facility] Ordering Location: [facility] PERIOPERATIVE Received: 10/20/2019 08:32 AM [facility] Pathologist: Carmina Grewal MD Specimens: A) - Gallbladd er B) - Sple en DIAGNOSIS A. GALLBLADDER, CHOLECYSTECTOMY: [facility] Electronically - CHRONIC CHOLECYSTITIS AND CHOLESTEROLOSIS [facility] signed by Carmina, - NO GALLSTONE PRESENT MEDICAL [place] MD Carmina on 10/22/2019 at 4 :34 B. SPLEEN, SPLENECTOMY: PM - WEIGHT: 272 GM - SPLENOMEGALY - MILD VASCULAR CONGESTION, NO SIGNIFICANT PATHOLOG IC ABNORMALITY - NEGATIVE FOR MALIGNANCY OR LYMPHOMA CC/pl Signing Pathologist Direct Phone Line: CPT Code(s) 13087; 12627 [facility] CLINICAL HISTORY Preop diagnosis: [facility] Chronic pancreatitis, [facility] unspecified [facility] pancreatitis type and splenic vein thrombosis. SPECIMEN SOURCE Gallbladder and spleen [facility] GROSS DESCRIPTION A. Received fresh labeled wi th the patient's name, accession number and "gallbladder"is a 7.5 cm in length x 1.5 cm in diameter, previously opened gallbladder. There is no attached cystic duct and no ly [facility] mph node identified. The ser elma is webster-purple, smooth and hyperemic. Upon opening, there is no bile or calculus present. The mucosa is york-brown and velvety. The wall thickness is 0.2 cm. Material Crew Supervisor sections are submitted in cassette [id number]. [facility] B. Received fresh labeled wi th the patient's name, accession number and " spleen" is a 272 gm, 15.0 x 10.0 x 2.5 cm spleen with a scant amount of attached hilar fat. The capsule is webster-maroon and intac t, no subcapsular laceration is identified. The cut surface displays a red- brown, homogeneous and unremarkable parenchyma. No masses are identified. Ink code: Blue - capsule Section code: B1, full-thickness section capsule to hilar margin B2, parenchyma to hilar margin MICROSCOPIC Performed [facility] Specimen Tissue - Gallbladder structure (body str ucture) Tissue specimen (specimen) - Splenic str ucture (body structure) Performing Organization Address City/State/Zipcode Phone Number [facility] [address] [place] [address] abdomen/pelvis without & with IV contrast (10/16/2019 10:43 AM CDT) Specimen Narrative Performed At FINAL REPORT [employer] TECHNIQUE: CT of the abdomen and pelvis [...] decre ased since the previous exam in 2018. (See axial image 37). Cyst sharmin rostomy [...] Report Verified Date/Time: 10/16/2019 13:25:44 Reading Location: [facility] C013Y CT Body R eading Room Procedure [...] Verified Date/Time: 10/16/2019 1 3:25:44 Reading Location: [facility] C013Y CT Body R ding Room Performing Organization Address City/State/Zipcode Phone Number [facility] REPORT OF PROCEDURE - ENDOSCOPY URL (10/15/2019 6:42 PM CDT) Narrative Performed At This result has an attachment that is no t available. Urinalysis w/Microscopic (10/15/2019 8:13 AM CDT) Color, UA Yellow [facility] Clarity, UA Hazy [facility] Specific [place], 1.010 1.001 - 1.035 [facility] pH, UA 6.5 5.0 - 8.0 [facility] Protein, UA 20 mg/dL (A) Negative [facility] Glucose, UA Negative Negative [facility] Ketones, UA 100 mg/dL (A) Negative [facility] Bilirubin, UA Negative Negative [facility] Blood, UA Negative Negative [facility] Nitrite, UA Negative Negative [facility] Leukocytes, UA Negative Negative [facility] Urobilinogen, UA 0.2 0.2 - 1.0 mg/dL [facility] RBC, UA 0 /HPF [facility] WBC, UA 0 /HPF [facility] Bacteria, UA Occasional [facility] Mucus Occasional [facility] Squam Epithel, UA <1 /HPF [facility] Yeast Few [facility] Specimen Source [facility] Specimen Urine Narrative Performed At [employer] Helper ID - [auto] [facility] [employer] Helper ID - moe Performing Organization Address City/State/Zipcode Phone Number [address] [address] CENTER IGG SUBCLASS-4 ONLY (10/15/2019 5:32 AM CDT) Pathologist Sig nature Igg 4 64.5 4 - 86 mg/dL [facility] D Specimen Blood Narrative Performed At Performing Lab [facility] [place] [address] [place] [address] Elma Herman MD, PhD, VENKATA Performing Organization Address City/[facility]/Zipcode Phone Number [place] [address] INCORPORATED [id number] [facility] Comprehensive metabolic panel (10/15/2019 5:32 AM CDT)Only the most recent of3 resultswithin the time period is included. Protein, Total 5.2 (L) 6.0 - 8.3 [facility] gm/dL [facility] Albumin 2.7 (L) 3.5 - 5.0 [facility] g/dL [facility] Alkaline 120 40 - 150 U/L [facility] Phosphatase [facility] Total Bilirubin 0.8 0.2 - 1.2 [facility] mg/dL [facility] Sodium 138 136 - 145 [facility] meq/L [facility] Potassium 3.9 3.5 - 5.1 [facility] meq/L [facility] Chloride 106 98 - 107 [facility] meq/L [facility] CO2 21 (L) 22 - 29 meq/L [facility] BUN 6 (L) 7 - 21 mg/dL [facility] Creatinine 0.60 0.57 - 1.25 [facility] mg/dL [facility] Glucose 53 (L) 70 - 105 [facility] mg/dL [facility] Calcium 8.0 (L) 8.4 - 10.2 [facility] mg/dL [facility] AST 24 5 - 34 U/L [facility] ALT 12 6 - 55 U/L [facility] EGFR 158Comment: mL/min/1.73 [facility] ESTIMATED GFR IS sq [facility] NOT ACCURATE MEDICAL CENTER CREATININE CLEARANCE IN PREDICTING GLOMERULAR FILTRATION RATE. ESTIMATED GFR IS NOT APPLICABLE FOR DIALYSIS PATIENTS. Specimen Blood Narrative Performed At [employer] Helper ID - JESUS Burris [facility] Performing Organization Address City/State/Zipcode Phone Number [facility] [address] [place] [address] CENTER XR abdomen / KUB 1 view (10/14/2019 9:16 AM CDT) Specimen Narrative Performed At FINAL REPORT [facility] TECHNIQUE: Frontal view of the abdomen. INDICATION: 29-year-old man with common bile duct stent. COMPARISON: None. IMPRESSION: No stent identified in the expected edmundo on of the bile ducts. Nonobstructive bowel gas pattern. Bones are unremarkable. Retained contras t in the bladder. Clip projects over the left upper quadrant. Signed: Adán Herrmann MD Report Verified Date/Time: 10/14/2019 09:37:48 Reading Location: [facility] Reading Room - [place] [address] Procedure Note Interface, External Ris In - [...] Verified Date/Time: 10/14/2019 0 9:37:48 Reading Location: [facility] Reading Room - [place] [address]9 Performing Organization Address City/[facility] Phone Number GE RIS Iron, TIBC, % sat. (without ferritin) (10/14/2019 4:34 AM CDT)Only the most recent of2 resultswithin the time period is included. Pathologist Sig nature Iron 32.0 (L) 40.0 - 160.0 [facility] ug/dL [facility] TIBC 214 (L) 250 - 450 ug/dL [facility] Iron % Saturation 15 (L) 20 - 55 % [facility] Specimen Blood Narrative Performed At [employer] Helper ID - KIRA Jacobsen [facility] Performing Organization Address [facility] Phone Number [address] [address] CENTER Triglycerides (10/14/2019 4:34 AM CDT) Pathologist Sig nature Triglycerides 66 mg/dL [facility] Specimen Blood Narrative Performed At TRIGLYCERIDE REFERENCE RANGE [facility] Low Risk <150 Borderline Risk 150-199 High Risk 200-499 Very High Risk >=500 [employer] Helper ID Binu Jacobsen Performing Organization Address [facility] Centercode Phone Number [address] [address] CENTER Ferritin (02/18/2019 1:36 PM ROBOT DESIGNER) Pathologist Sig nature Ferritin 187 5 - 275 ng/mL [facility] Specimen Blood Narrative Performed At [employer] Helper ID - ARTURO [facility] Performing Organization Address [facility] [place]erc[place] [address] CENTER Vitamin B12 and Folate (02/17/2019 4:18 AM ROBOT DESIGNER) Pathologist Sig nature Vitamin B12 665 213 - 816 pg/mL [facility] Folate 12.3 >=7.0 ng/mL [facility] Specimen Blood Narrative Performed At [employer] Operator Helper ID - SOTERO Hernandez [facility] Performing Organization Address [facility] Phone Number [place] [phone] [facility] TSH/Free T4 If Indicated (02/17/2019 4:18 AM ROBOT DESIGNER) Pathologist Sig nature TSH 2.31 0.35 - 4.94 uIU/mL [facility] Specimen Blood Narrative Performed At [employer] Operator Helper ID - SOTERO Hernandez [facility] Performing Organization Address [facility] Centercode [place] [address] CENTER REPORT OF PROCEDURE - ENDOSCOPY URL (02/15/2019 12:51 PM ROBOT DESIGNER) Narrative Performed At This result has an attachment that is no t available. [place] ERCP (02/15/2019 12:32 PM ROBOT DESIGNER) Specimen Narrative Performed At FINAL REPORT GE RIS A fluoroscopic unit was utilized for a p rocedure performed in the operating room. No interpretation was re quested. Please refer to the operative report regarding findings. Ple ase refer to PACS for patient radiation dose information. Signed: Josef Bowman MD Report Verified Date/Time: 02/16/2019 09:17:37 Reading Location: [facility] B1 C013Y CT Body R eading Room Procedure Note Interface, External Ris In - 02/16/2019 9:19 AM ROBOT DESIGNER FINAL REPORT A fluoroscopic unit was utilized for a p rocedure performed in the operating room. No interpretation was re quested. Please refer to the operative report regarding findings. Ple ase refer to PACS for patient radiation dose information. Signed: Josef Bowman MD Report Verified Date/Time: 02/16/2019 0 9:17:37 Reading Location: [facility] B1 C013Y CT Body R eading Room Performing Organization Address City/State/Zipcode Phone Number GE RIS CYTOLOGY REQUEST (02/15/2019 12:26 PM ROBOT DESIGNER) Pathologist Sig nature Cytology See Separate Report [facility] Specimen Brushings - Common bile duct structure ( body structure) Performing Organization Address City/[facility] Centercode Phone Number [facility] MEDICAL [address] [place] [address] [phone] CENTER Cytology (02/15/2019 12:26 PM ROBOT DESIGNER) Pathologist Sig nature Case Report Medical Cytology Report Case: [id number] C [facility] Authorizing Provider: Uriah Casper i Collected: 02/15/2019 1226 [facility] Ordering Location: [address] Received: 02/15/[address] [place] [address] Service Pathologist: Nereyda Causey MD Specimen: Common Bile D uct, Distal bile duct brushing in CRR DIAGNOSIS COMMON BILE DUCT BRUSHING (CYTOSPINS AND CELL BLOCK): [facility] Electronically signed - MILDLY ATYPICAL CELLS PRESENT, FAVOR REACTIVE (SE E COMMENT) [facility] by Nereyda Causey MD Signing Pathologist Direct Phone Line: [phone] [place] [address] on 02/18/2019 at 5:29 PM COMMENT Few mildly atypical [facility] cells are present [facility] and with the [facility] history of stent, a reactive process is favored. Clinical correlation is recommended. 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 [facility] HUNTER'S DESCRIPTION [facility] STATEMENT OF Satisfactory [facility] ST LUKE'S ADEQUACY [facility] Gross assessment [facility] LU[facility]'S was performed at [facility] Department of [facility] Pathology, [address] [place] [id number], Technical component [facility] Lopez[facility] MAGGEI FERREIRA'S was performed at [facility] Department of [facility] Pathology, [address] [place] [id number], Professional [facility] Lopez[facility] HUNTER'S component was [facility] performed at Department of [facility] Pathology, [address] [place] [id number], Specimen Brushings - Common bile duct structure ( body structure) Narrative Performed At This result has an attachment that is no t available. Performing Organization Address City/State/Zipcode Phone Number [address] [address] CENTER Manual Differential (02/14/2019 6:24 AM ROBOT DESIGNER) % Neutros 87 % [facility] % Lymphs 3 % [facility] % Monos 6 % [facility] % Eos 3 % [facility] % Atypical Lymphs 1 (H) 0 - 0 % [facility] # Neutros 7.74 (H) 1.78 - 5.38 [facility] K/ul [facility] # Lymphs 0.27 (L) 1.32 - 3.57 [facility] # Monos 0.53 0.30 - 0.82 [facility] # Eos 0.27 0.04 - 0.54 [facility] # Atypical Lymphs 0.09 (H) 0.00 - 0.00 [facility] Total Counted 100 [facility] Platelet Morphology Normal [facility] Smudge Cells Present [facility] Polychromasia 2+ moderate [facility] Hypochromia 1+ few [facility] Anisocytosis 2+ moderate [facility] Microcytes 2+ moderate [facility] Poikilocytes 1+ few [facility] Schistocytes 1+ few [facility] Platelet Conc Adequate [facility] Specimen Blood Narrative Performed At [employer] Operator Helper ID - Lorenzo Amaro [facility] User comments: Slide comments: Performing Organization Address City/State/Zipcode Phone Number [facility] [address] [place] [address] CENTER after 12/12/2018 Insurance Payer Benefit Plan / Subscriber ID Effective Phone Address T ype Group Dates MEDICAID - MEDICAID [id number] 2011-Prese Medi caid MEDICAID MGD [employer] nt Non-Co ntract CARE ed CDC REVIEW CDC REVIEW [id number] 2019-[place] [address] [place] [address] Advance Directives For more information, please contact: [phone] Code Status Date Activated Date Inactivated Comments Full Code 12/01/2019 10:25 PM 12/07/2019 5:50 PM This code status was determined by: Patient Full Code 10/13/2019 11:29 PM 10/24/2019 3:28 [...]
--- OUTSIDE RECORDS SUMMARY | 2019-12-13 09:26 | XMS REPORT | Continuity of Care Document ---
:1990 Author Organization [employer] Care Team Providers Name Role Phone [employer] Unavailable Un available Problems Problem Status Onset Classification Date Comments Sour e Date Reported CLINIC VISIT Active 09/30/[address] [place] [address] [facility] GASTRIC VARICES Active 09/01/19 [place] SEVERE PANCREATIC 20 Me [facility] UPPER GI BLEED Active 08/27/[address] ACUTE UPPER GI Active 08/27/19 B[place], ACUTE BLOOD [place] A Illness, 09/01/2019 [place] ILLNESS, Active UNSPECIFIED [facility] t GASTROINTESTINAL Active HEMORRHAGE, [facility] t UNSPECIFIED ACUTE Active POSTHEMORRHAGIC [place] ANEMIA HYPOTENSION, Active UNSPECIFIED [place] Medications Medication Details Route Status Patient Ordering Order Source Instructions Provider Date Saline Flush Notes: (Same Active 0.9% as: 2019 [facility] Posiflush) Lidocaine Notes: Active Hydrochloride 10 Preservative 2019 [place] MG/ML Injectable free. (Same Solution as: Xylocaine MPF) Saline Flush Notes: (Same Active 0.9% as: 2019 [facility] Posiflush) pantoprazole Notes: For IV Active additive 80 mg + push 2019 [facility] Sodium Chloride reconstitute 0.9% IV 100 mL with 10 ml 0.9% sodium chloride and push over 2 minutes. (Same as: Protonix) Potassium Notes: Infuse Inactive Chloride at a rate of 2019 10 mEq/hr. (Same as: KCL) ondansetron 2 4 mg = 2 mL, No Longer mg/mL injectable IVP, Q6H, 0 Active 2019 [facility] solution Refill(s) D5NS 1,000 mL 1,000 mL, Active Rate: 100 2019 ml/hr, Infuse over: 10 hr, Route: IV, Dosing Weight 68.409 kg, Total Volume: 1,000, Start date: 08/30/19 8:29:00 CDT, Duration: 30 day, Stop date: 09/29/19 8:28:00 CDT, 1.84, m2, 0 Sodium Chloride 250 mL, Route: Active H 0.9% IV IVPB, Start 2019 [facility] date: 08/29/19 16:33:00 CDT, Duration: 30 day, Stop date: 09/28/19 16:32:00 CDT, PRN Line Flush, 0 Dextrose 50% 12.5 gm, 25 Active Syringe (D50W) mL, Route: 2019 [facility] est IVP, Drug Form: INJ, Dosing Weight 68.409, kg, PRN, PRN Blood Glucose Results, Start date: 08/29/19 16:11:00 CDT, Duration: 30 day, Stop date: 09/28/19 16:10:00 CDT, 0 Glucagon 1 mg, Route: Active IM, Drug form: 2019 [facility] PDR/INJ, PRN, Dosing Weight 68.409, kg, PRN Blood Glucose Results, Start date: 08/29/19 16:11:00 CDT, Duration: 30 day, Stop date: 09/28/19 16:10:00 CDT, 0 Omnipaque 350 Notes: (same Inactive injectable as:Omnipaque 2019 [facility] t solution 350). WASTE: F/P - Black; E - [facility] Potassium Notes: Infuse Inactive Chloride at a rate of 2019 [facility] 10 mEq/hr. (Same as: KCL) Lactulose 667 Notes: (Same Inactive MG/ML Oral as:Chronulac) 2019 [facility] Solution Lactulose 667 Notes: (Same Inactive MG/ML Oral as:Chronulac) 2019 [facility] Solution ondansetron Notes: (Same Active as: Zofran) 2019 [facility] MEDICATION WASTE Product Size: 4 mg Product Wasted: ___ mg Golytely Notes: Inactive (polyethylene 2019 [facility] glycol electrolyte solution 4 Liter bottle) (Same as: Golytely, Colyte) Ondansetron Notes: (Same Inactive as: Zofran) 2019 [facility] MEDICATION WASTE Product Size: 4 mg Product Wasted: ___ mg Acetaminophen 2 tab, PO, Inactive 325 MG / Q4H, PRN for 2019 [facility] Hydrocodone pain, # 84 Bitartrate 5 [...] Ondansetron Notes: (Same Active as: Zofran) 2019 [facility] MEDICATION WASTE Product Size: 4 mg Product Wasted: ___ mg pantoprazole Notes: For IV No Longer additive 80 mg + push Active 2019 [facility] Sodium Chloride reconstitute 0.9% IV 100 mL with 10 ml 0.9% sodium chloride and push over 2 minutes. (Same as: Protonix) Trazodone Notes: (Same Active As: Desyrel) 2019 [facility] Maalox Advanced Notes: Active Regular Strength (aluminum 2019 [facility] SUSP hydroxide-magn esium hyd-simethicon e [phone]/5 ml 30 ml ud DAKOTAH) Albuterol 0.833 Notes: (Same Active MG/ML / as: Duoneb) 2019 [facility] Ipratropium Wilder 0.167 MG/ML Inhalant Solution [DuoNeb] Docusate Sodium Notes: (Same Active 100 MG Oral as: Colace) 2019 [facility] t Capsule [Colace] (Do Not Crush) Robitussin 100 Notes: (Same Active mg/5 mL oral as: 2019 [facility] liquid Robitussin) Zofran Notes: (Same Active as: Zofran) 2019 [facility] MEDICATION WASTE Product Size: 4 mg Product Wasted: ___ mg Hydralazine Notes: (Same Active as: 2019 [facility] Apresoline) Push over 5 minutes Sodium Chloride 1,000 mL, No Longer 0.9% IV 1,000 mL Rate: 100 [facility] 2019 [facility] ml/hr, Infuse over: 10 hr, Route: IV, Dosing Weight 68.409 kg, Total Volume: 1,000, Start date: 08/28/19 2:15:00 CDT, Duration: 30 day, Stop date: 09/27/19 2:14:00 CDT, 1.84, m2, 0 Saline Flush Notes: Same Active 0.9% as: BD 2019 [facility] Posiflush Sterile pantoprazole Notes: For IV Inactive push 2019 [facility] reconstitute with 10 ml 0.9% sodium chloride and push over 2 minutes. (Same as: Protonix) Morphine Notes: (Same Active as:MORPhine 2019 [facility] Sulfate) Labetalol Notes: (Same Active as: Normodyne, 2019 [facility] Trandate) Push over 2 minutes Give bolus over 2-3 minutes. NS (Bolus) IV 1,000 mL, Inactive 1,000 ml/hr, 2019 [facility] Infuse Over: 1 hr, Route: IV, 1,000, Drug form: INJ, ONCE, Priority: STAT, Dosing Weight 68.409 kg, Start date: 08/28/19 2:07:00 CDT, Stop date: 08/28/19 2:07:00 CDT, 0 Sodium Chloride 1,000 mL, Inactive 0.9% (Bolus) IV 1,000 ml/hr, 2019 [facility] Infuse Over: 1 hr, Route: IV, 1,000, Drug form: INJ, ONCE, Priority: STAT, Dosing Weight 68.409 kg, Start date: 08/28/19 2:01:00 CDT, Stop date: 08/28/19 2:01:00 CDT, 0 ursodiol 500 mg 500 mg = 1 No Longer oral tablet tab, PO, ONCE, [address] 0 Refill(s) Esomeprazole 40 mg, PO, No Longer Daily, 0 2019 [facility] Refill(s) ferrous sulfate 325 mg = 1 No Longer 325 MG Oral tab, PO, BID, 2019 [facility] est Tablet 0 Refill(s) Allergies, Adverse Reactions, Alerts Substance Category Reaction Severity Reaction Status Date Comments S ource type Reported vancomycin Assertion Drug Active MH allergy [facility] piperacillin Assertion Drug Active M H -tazobactam allergy [place] meropenem Assertion Drug Active MH allergy [facility] Immunizations No Data Provided for This Section Results Order Name Results Value Reference Date Interpretation Comments Lenka rce Range CHEM PANEL Amylase Lvl 17 25 - 115 08/30 [facility] CHEM PANEL Glucose Lvl 104 70 - 99 08/30 [facility] CHEM PANEL BUN 1 7 - 08/30 [facility] CHEM PANEL Creatinine 0.50 0.50 - 08/30 Lvl 1.40 [facility] CHEM PANEL Sodium Lvl 145 135 - 145 08/30 [facility] CHEM PANEL Potassium 3.1 3.5 - 5.1 08/30 Lvl [facility] CHEM PANEL Chloride Lvl 109 95 - 109 08/30 [facility] CHEM PANEL CO2 25 24 - 32 08/30 [facility] CHEM PANEL AGAP 14.1 10.0 - 08/30 MH 20.0 [facility] CHEM PANEL Calcium Lvl 7.4 8.5 - 10.5 08/30 [facility] CHEM PANEL eGFR 145 08/30 Result Comment: [facility] eGFR is calculated using the CKD-EPI [...] Lvl 104 73 - 393 / /2019 [facility] HEMATOLOGY WBC 5.9 3.7 - 10.4 08/30 /2019 [facility] HEMATOLOGY RBC 3.00 4.70 - 08/30 MH 6.10 /2019 [facility] HEMATOLOGY Hgb 9.1 14.0 - 08/30 MH 18.0 /2019 [facility] HEMATOLOGY Hct 26.4 42.0 - 08/30 MH 54.0 /2019 [facility] HEMATOLOGY MCV 88.1 80.0 - 08/30 MH 94.0 /2019 [facility] HEMATOLOGY MCH 30.2 27.0 - 08/30 MH 31.0 /2019 [facility] HEMATOLOGY MCHC 34.3 32.0 - 08/30 MH 36.0 /2019 [facility] HEMATOLOGY RDW 14.6 11.5 - 08/30 MH 14.5 /2019 [facility] HEMATOLOGY Platelet 341 133 - 450 08/30 /2019 [facility] HEMATOLOGY MPV 8.8 7.4 - 10.4 08/30 MH /2019 [facility] HEMATOLOGY Segs 71.9 45.0 - 08/30 MH 75.0 /2019 [facility] HEMATOLOGY Lymphocytes 13.3 20.0 - 08/30 MH 40.0 /2019 [facility] HEMATOLOGY Monocytes 11.1 2.0 - 12.0 08/30 /2019 [facility] HEMATOLOGY Eosinophils 3.1 0.0 - 4.0 08/30 /2019 [facility] HEMATOLOGY Basophils 0.6 0.0 - 1.0 08/30 /2019 [facility] HEMATOLOGY Neutrophils 4.3 1.5 - 8.1 08/30 MH # /2019 [facility] HEMATOLOGY Lymphocytes 0.8 1.0 - 5.5 08/30 MH # /2019 [facility] HEMATOLOGY Monocytes # 0.7 0.0 - 0.8 08/30 /2019 [facility] HEMATOLOGY Eosinophils 0.2 0.0 - 0.5 / MH # /2019 [facility] HEMATOLOGY Basophils # 0.0 0.0 - 0.2 / /2019 [facility] CHEM PANEL Glucose Lvl 57 70 - 99 08/29 /2019 [facility] CHEM PANEL BUN 2 7 - 22 08/29 /2019 [facility] CHEM PANEL Creatinine 0.40 0.50 - 07 MH Lvl 1.40 /2019 [facility] CHEM PANEL Sodium Lvl 143 135 - 145 07 /2019 [facility] CHEM PANEL Potassium 3.5 3.5 - 5.1 07/ MH Lvl /2019 [facility] CHEM PANEL Chloride Lvl 109 95 - 109 07/ MH /2020 [facility] CHEM PANEL CO2 22 24 - 32 08/29 [facility] CHEM PANEL Calcium Lvl 7.7 8.5 - 10.5 08/29 [facility] CHEM PANEL AGAP 15.5 10.0 - 08/29 MH 20.0 [facility] CHEM PANEL eGFR 159 08/29 Result Comment: [facility] eGFR is calculated using the CKD-EPI [...] 0.00 - 08/29 MH n Lvl 0.10 [facility] HEMATOLOGY WBC 6.2 3.7 - 10.4 08/29 [facility] HEMATOLOGY RBC 2.92 4.70 - 08/29 MH 6.10 [facility] HEMATOLOGY Hgb 8.5 14.0 - 08/29 MH 18.0 [facility] HEMATOLOGY Hct 26.2 42.0 - 08/29 MH 54.0 [facility] HEMATOLOGY MCV 89.6 80.0 - 08/29 MH 94.0 [facility] HEMATOLOGY MCH 29.0 27.0 - 08/29 MH 31.0 [facility] HEMATOLOGY MCHC 32.4 32.0 - 08/29 MH 36.0 [facility] HEMATOLOGY RDW 15.0 11.5 - 08/29 MH 14.5 [facility] HEMATOLOGY Platelet 323 133 - 450 08/29 [facility] MPV 8.6 7.4 - 10.4 08/29 [facility] HEMATOLOGY Segs 77.2 45.0 - 08/29 MH 75.0 /2019 [facility] HEMATOLOGY Lymphocytes 11.4 20.0 - 07 MH 40.0 /2019 [facility] HEMATOLOGY Monocytes 9.1 2.0 - 12.0 07 [facility] HEMATOLOGY Eosinophils 1.8 0.0 - 4.0 07 MH [facility] HEMATOLOGY Basophils 0.5 0.0 - 1.0 07/ [facility] HEMATOLOGY Neutrophils 4.7 1.5 - 8.1 08/29 MH # /2019 [facility] HEMATOLOGY Lymphocytes 0.7 1.0 - 5.5 08/29 MH # [facility] HEMATOLOGY Monocytes # 0.6 0.0 - 0.8 08/29 [facility] HEMATOLOGY Eosinophils 0.1 0.0 - 0.5 08/29 MH # [facility] IMMUNOLOGY Coronavirus Not Detected Not 08/28 MH (COVID-19) (08/29/19 6:29 AM) Detected /2019 [facility] CHEM PANEL Glucose Lvl 71 70 - 99 08/28 [facility] CHEM PANEL BUN 3 7 - 22 08/28 [facility] CHEM PANEL Creatinine 0.50 0.50 - 07 MH Lvl 1.40 /2019 [facility] CHEM PANEL Sodium Lvl 143 135 - 145 08/28 [facility] CHEM PANEL Potassium 3.3 3.5 - 5.1 08/28 MH Lvl /2019 [facility] CHEM PANEL Chloride Lvl 110 95 - 109 08/28 [facility] CHEM PANEL CO2 26 24 - 32 08/28 [facility] CHEM PANEL Calcium Lvl 8.2 8.5 - 10.5 08/28 [facility] CHEM PANEL AGAP 10.3 10.0 - 08/28 MH 20.0 [facility] CHEM PANEL eGFR 145 08/28 Result Comment: [facility] eGFR is calculated using the CKD-EPI [...] 5.2 3.7 - 10.4 08/28 MH /2019 [facility] HEMATOLOGY RBC 2.91 4.70 - 08/28 MH 6.10 [facility] HEMATOLOGY Hgb 8.8 14.0 - 08/28 MH 18.0 /2019 [facility] HEMATOLOGY Hct 25.8 42.0 - 08/28 MH 54.0 /2019 [facility] HEMATOLOGY MCV 88.8 80.0 - 08/28 MH 94.0 [facility] MCH 30.3 27.0 - 08/28 MH 31.0 [facility] MCHC 34.1 32.0 - 08/28 MH 36.0 [facility] RDW 14.4 11.5 - 08/28 MH 14.5 [facility] Platelet 316 133 - 450 08/28 /2019 [facility] MPV 8.6 7.4 - 10.4 08/28 MH /2019 [facility] RBC Morph Normal Normal 08/28 MH (08/29/19 4:30 AM) /2019 [facility] est HEMATOLOGY Plt Morph Normal Normal 08/28 MH (08/29/19 4:30 AM) /2019 [facility] est HEMATOLOGY Segs 70.7 45.0 - 08/28 MH 75.0 [facility] Lymphocytes 17.3 20.0 - 08/28 MH 40.0 [facility] Monocytes 10.4 2.0 - 12.0 08/28 /2019 [facility] HEMATOLOGY Eosinophils 1.0 0.0 - 4.0 08/28 MH /2019 [facility] HEMATOLOGY Basophils 0.6 0.0 - 1.0 08/28 MH /2019 [facility] HEMATOLOGY Neutrophils 3.6 1.5 - 8.1 08/28 MH # /2019 [facility] HEMATOLOGY Lymphocytes 0.9 1.0 - 5.5 08/28 MH # [facility] Monocytes # 0.5 0.0 - 0.8 08/28 /2019 [facility] Eosinophils 0.1 0.0 - 0.5 08/28 MH # /2019 [facility] BLOOD BANK RBC product Product available 4 08/27 Resul t RESULTS (08/28/19 5:41 AM) /2019 Comment: [facility] 08/28/2019 06:02 [id number]
Blood available, notified Anne WHITNEY at 08/28/2019 06:02 by NS. BLOOD BANK Antibody Negative 08/27 RESULTS Scrn (08/28/19 3:37 AM) [facility] BLOOD BANK ABO/Rh A POS 08/27 RESULTS /2019 [facility] CHEM PANEL Total 5.1 6.4 - 8.4 08/27 Protein /2019 [facility] CHEM PANEL Albumin Lvl 1.2 3.5 - 5.0 08/27 [facility] CHEM PANEL ALT 7 0 - 65 08/27 [facility] CHEM PANEL AST 14 0 - 37 08/27 [facility] CHEM PANEL Alk Phos 88 39 - 136 08/27 [facility] CHEM PANEL Bili Total 0.3 0.2 - 1.3 08/27 [facility] CHEM PANEL B/C Ratio 12 6 - 25 08/27 [facility] CHEM PANEL Globulin 3.9 2.7 - 4.2 08/27 [facility] CHEM PANEL A/G Ratio 0.3 0.7 - 1.6 08/27 [facility] HEMATOLOGY PT 17.3 12.0 - 08/27 MH 14.7 [facility] HEMATOLOGY INR 1.40 0.85 - 08/27 1.17 [facility] HEMATOLOGY PTT 45.5 22.9 - 08/27 35.8 [facility] HEMATOLOGY RBC Morph Normal Normal 08/27 (08/28/19 3:37 AM) [facility] HEMATOLOGY Plt Morph Normal Normal 08/27 (08/28/19 3:37 AM) [facility] HEMATOLOGY Basophils # 0.0 0.0 - 0.2 08/27 [facility] Pathology Reports No Data Provided for This Section Diagnostic Reports Report Value Date Source Chest 2 views DX EXAM: XR CHEST 2 VIEWS 09/10/2019 [facility] DATE: 09/10/2019 9:36 CDT Center INDICATION: - eval pleural effusions COMPARISON: Chest radiograph 09/05/2019 TECHNIQUE: PA and lateral chest radiographs. FINDINGS: Lines, tubes and hardware: T he right arm PICC tip is heading towards the neck and projects outside the [id number]. Lungs and pleura: Pulmonary vascularity is normal. [...] towards the neck and projecting outside the hpsha-[id number]. Recommend repositioning. 2. There is interval improv ement of small left pleural effusion status post thoracentesis. 3. Left retrocardiac subsegmental atelectasis. Finding #1 was discussed wit radha Sanchez via telephone on 09/10/2019 at 1531 hours. Thoracentesis wo PROCEDURE: Ultrasound-guided thoracentesis 04/2019 [facility] catheter Procedural Personnel Center Attending physician(s): Jack [...] written. Vascular/Interventional PROCEDURE: Ultrasound-guided thoracentes is 09/08/2019 [facility] Radiology Consult Procedural Personnel Center Attending physician(s): [...] ABDOMEN WITHOUT AND WITH CONTRA ST 09/05/2019 [facility] IV contrast CT DATE: 09/05/2019 7:54 CDT [...] Enteric contrast: None. DLP (mGy-cm): 1438.90. FINDINGS: Customer Service Leader: Noncontributory. Lines, tubes and hardware: None. Lower [...] Placement EXAM: XR CHEST 1 VIEW 09/05/2019 [facility] DX DATE: 09/05/2019 13:44 CDT Center [...] [facility] DATE: 09/04/2019 1:45 PM CDT [facility] er INDICATION: Dyspnea - Right Thoracentesis COMPARISON: [...] CT EXAM: CT CHEST WITHOUT CONTRAST 09/02/2019 [facility] DATE: 09/02/2019 12:06 CDT Center INDICATION: [...] IV contrast: None. DLP (mGy-cm): 162.7. FINDINGS: Customer Service Leader: Noncontributory. Lines, tubes and hardware: None. Lower [...] DX EXAM: XR ABDOMEN 1 VIEW 09/02/2019 [facility] DATE: 09/02/2019 8:59 CDT Center INDICATION: - History of Pancreatitis and GI bl eed ADDITIONAL INFORMATION: None. COMPARISON: CT abdomen pelvis 08/29/2019 TECHNIQUE: Single frontal image of the abdomen. FINDINGS: Lines and tubes: Right upper quadrant biliary st ent. Endo Clip projects over the left medial upper qu adrant. Overlying EKG leads. Lower thorax: Small left ple ural effusion with associated atelectasis/consolidation. Bowel: Huek-[id number]-kmkcwihn gaseous distention of th e stomach. Gaseous [...] DX EXAM: XR CHEST 1 VIEW 09/02/2019 [facility] DATE: 09/02/2019 8:59 AM CDT [facility] er INDICATION: - History of cough COMPARISON: [...] (mGy): D LP = 169 (mGy-cm) 08/29/2019 [facility] PROCEDURE INFORMATION: Exam: CT Abdomen With Contrast [...] Carlota Mcgrath MD On 08/29/2019 16:04: 53; [id number] Consultation Notes No Data Provided for This Section Discharge Summaries No Data Provided for This Section History and Physicals No Data Provided for This Section Vital Signs Vital Sign Value Date Comments Source Heart Rate 86 09/01/2019 [facility] Respitory Rate 18 09/01/2019 [facility] Systolic (mm Hg) 106 09/01/2019 [facility] t Diastolic (mm Hg) 69 09/01/2019 [facility] st Respitory Rate 18 09/01/2019 [facility] Temperature Oral (F) 99.1 F 09/01/2019 [place] Heart Rate 101 09/01/2019 [facility] Respitory Rate 18 09/01/2019 [facility] Systolic (mm Hg) 98 09/01/2019 [facility] t Diastolic (mm Hg) 68 09/01/[address] [facility] [address] Temperature Oral (F) 98.3 F 08/31/2019 [place] Heart Rate 76 08/31/2019 [facility] Systolic (mm Hg) 107 08/31/2019 [facility] t Diastolic (mm Hg) 72 08/31/[address] [facility] [address] Temperature Oral (F) 98.4 F 08/31/2019 [place] Height 177.8 cm 08/28/2019 [facility] Weight 68.409 08/28/2019 [facility] BMI Calculated 21.64 08/28/2019 [facility] Encounters Location Location Encounter Encounter Reason Attending ADM CA Stat Source Details Type Number For Provider Date Date Visit 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 Colonoscopy was unremarkable CT reviewed multiple biliary and pancreatic issues [facility] [...] bleed. Patient is being resuscitated at the [facility] ent, getting his 4th unit of PRBC, no hematemesis reported by mother or EMS Vitally stable Plan: Patient is on PPI gtt Zofran 4 mg q6 h to avoid nausea Check H&H post transfusion Plan for upper endoscopy and colonoscopy in AM Biliary stent needs to be [facility] since all liver labs look unremarkable, would not remove it at the moment. Clear liquid diet NPO midnight Thank you for allowing me to participate in her care and please do not hesitate to contact me with any questions or concerns. Please excuse any typographical errors, documentation prepared using electronic dictation softwareandmay contain unintendedword substitutions. Extracted from:Title: History and Physical Author: Carlos Zartae MD Date: 08/28/19 This is a 29-year-old [...] History Date Source Social History TypeResponse 08/28/2019 [facility] Alcohol Never Substance Abuse Use: None. Smoking Status Never smoker; Previous treatment: None; Exposure to Tobacco Smoke None; Cigarette Smoking Last 365 Days No; Reg Smoking Cessation Counseling No entered on: 08/28/19 Family History No Data Provided for This Section Advance Directives No Data Provided for This Section Functional Status No Data Provided for This Section"
--- OUTSIDE RECORDS SUMMARY | 2019-12-13 09:41 | XMS REPORT | Continuity of Care Document ---
:1990 Author Organization [facility] t Address [address] [place] [address] Care Team Providers Name Role Phone CedMontrell Primary Care Physician PEE MCKEON Attending Clinician Unavailable Du Chavarria MD, Pee Attending Clinician [phone] Mellissa Brooks MD Attending Clinician Camden WADE, Elisa Attending Clinician Kai Santiago MD Attending Clinician Tato Crowder MD Attending Clinician Jarocho WADE, Get Attending Clinician Celia Cuellar MD Attending Clinician Pennie WADE Attending Clinician Khadijah Maciel MD Attending Clinician Josselyn WADE, Sean Attending Clinician Aristeo Adams MD Attending Clinician Dory Moore MD Attending Clinician Arthur Morocho MD Attending Clinician Mervat Jalloh MD Attending Clinician Tony Clark MD Attending Clinician Marvel WADE, Kevon Attending Clinician Jeremi THOMAS Attending Clinician PENNIE Attending Clinician Unavailable Kp Zarate Attending Clinician MARÍA Attending Clinician Unavailable María WADE Attending Clinician Wing De La Rosa MD Attending Clinician [phone] Anaid Pinon MD Attending Clinician Fortunato WADE Attending Clinician Argelia Childs Attending Clinician CARMELA Attending Clinician Unavailable RAFAELA GILL Attending Clinician Unavailable SATHISH Attending Clinician Unavailable MITCHELL CELAYA Attending Clinician Unavailable PEE MCKEON Admitting Clinician Unavailable KHADIJAH MACIEL Admitting Clinician Unavailable Kp Zarate Admitting Clinician FORTUNATO Admitting Clinician Unavailable CARMELA Admitting Clinician Unavailable RAFAELA GILL Admitting Clinician Unavailable SATHISH Admitting Clinician Unavailable MITCHELL CELAYA Admitting Clinician Unavailable Payers Payer Name Policy Type Policy Effective Date Expiration Date Sour ce Number MEDICAID - [id number] 2011 [facility] MEDICAID MGD 00:00:[facility] - [facility] [id number] edicaid Non-Contracted [facility] REVIEWCDC [id number] 2019 [facility] [id number] 00:00:00 - [facility] [place] [address] Problems Condition Condition Condition Status Onset Resolution Last Treating Co mments Source Name Details Category Date Date Treatment Clinician Date Upper GI Upper GI Disease [facility] 2019-[facility] Acute Acute Disease Active [facility] postoperat postoperat 9-12 Mariah kes - yuridia pain yuridia pain 00:00: Medica l [place] Acute Acute Disease Active [facility] respirator respirator 9-12 Mariah kes - y y 00:00: Medical insufficie insufficie 00 Ce nter ncy, ncy, postoperat postoperat yuridia yuridia Hemorrhagi Hemorrhagi Disease Active 2019- [facility] shock c shock 10-17 [facility] 00 [facility] Metabolic Metabolic Disease Active 2019- [facility] acidosis acidosis 10-17 [facility] - 00:[facility]: Medical 00 [place] Oliguria Oliguria Disease Active 2019- [facility] Acute Acute Disease Active 2019- [facility] blood loss blood loss 10-17 Mariah kes - anemia anemia 00:00: Medical 00 [place] Hyperglyce Hyperglyce Disease Active [facility] mary ann mary ann 10-17 [facility] - 00:[facility]: [facility] [place] S/P S/P Disease Active 2019- [facility] splenectom splenectom 10-17 kes - y during y during 00:00: Medica l current current 00 Center hospitaliz hospitaliz ation ation Gastric Gastric Disease Active [facility] varices varices 10-12 - 00:00: Medical 00 Center CLINIC Diagnosis Active 2019-2019-10-14 Mem oria VISIT 09-29 12:21:00 l CLINIC 00:00: [place] VISIT 00 Active 09/30/2019 [facility] GASTRIC Diagnosis Active 2019-10-02 Me moria VARICES 08-31 15:46:00 l SEVERE GASTRIC 00:00: Nigel PANCREATIC VARICES 00 NECR SEVERE PANCREATIC NECR Active 09/01/2019 [facility] UPPER GI Diagnosis Active 2019-08-28 M emoria BLEED 08-26 00:59:00 l UPPER GI 00:00: Deshawn n BLEED 00 Active 08/27/2019 [facility] ACUTE Diagnosis Active 2019-09-09 Mem oria UPPER GI 08-26 21:51:00 l BLEED, ACUTE 00:00: Nigel ACUTE UPPER GI 00 BLOOD LOSS BLEED, A ACUTE BLOOD LOSS A Active 08/27/2019 [facility] Obstructiv Obstructiv Disease Active 2019- [facility] e jaundice e jaundice 1-10 Mariah kes - 00:00: Medical 00 [place] GI bleed GI bleed Disease Active [facility] 08[facility] Medical 00 [place] Leukocytos Leukocytos Disease Active [facility] is is 08-27 [facility] - 00:00: Medical 00 [place] Hypomagnes Hypomagnes Disease Active [facility] emia emia 07-28 [facility] - 00:00: Medical 00 [place] 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 6 [facility] - pancreatit pancreatit 00:00: Me dical is is 00 Center Peripancre Peripancre Disease Active [facility] atic fluid atic fluid 606 Mariah kes - collection collection 00:00: Me dical 00 Center Cholangiti Cholangiti Disease Active [facility] s 05-30 [facility] - 00:00: Medical 00 [place] Illness, Problem 2019-09-01 Mem oria unspecifie 09:02:02 l d Illness, Deshawn n unspecifie d 09/01/2019 [facility] ILLNESS, Diagnosis Active 2019-08-28 M emoria UNSPECIFIE 00:59:00 l D ILLNESS, Deshawn n UNSPECIFIE D Active [facility] GASTROINTE Diagnosis Active 2019-09-09 Memoria STINAL 21:51:00 l HEMORRHAGE Deshawn n , GASTROINTE UNSPECIFIE STINAL D HEMORRHAGE , UNSPECIFIE D Active [facility] ACUTE Diagnosis Active 2019-09-09 Mem oria POSTHEMORR 21:51:00 l HAGIC ACUTE Nigel ANEMIA POSTHEMORR HAGIC ANEMIA Active [facility] HYPOTENSIO Diagnosis Active 2019-09-09 Memoria N, 21:51:00 l UNSPECIFIE Deshawn n D HYPOTENSIO N, UNSPECIFIE D Active [facility] Allergies, Adverse Reactions, Alerts Allergy Allergy Status Severity Reaction(s) Onset Inactive Treating Comm ents Source Name Type Date Date Clinician Morphine Drug Active Nausea And [facility] Allergy Vomiting 1-10 [facility] - 00:[facility]: Medical 00 [place] tazobact DA [facility] am 09-11 Clear 00:00: [facility] piperaci DA Active [facility] llin 09-11 Clear 00:00: Agrrett [facility] vancomyc DA Active [facility] in 09-11 Clear 00:00: [facility] MEREPENE DA Active [facility] M 09-11 Clear [facility] Vancomyc Propensi Active Rash Rash [...] Active Hives, [facility] m-0.9% Allergy Itching 607 [facility] - Sodium 00:00: Medical Chloride 00 [facility] vancomyc Active Memori a in in [place] piperaci piperaci Active Memori a llin-sam llin-sam l obactam obactam [place] meropene meropene Active Memori a m chente Manning Social History Social Habit Start Date Stop Date Quantity Comments Source Sex Assigned At [facility] Exposure to Not sure [facility] - SARS-CoV-2 [facility] (event) Tobacco use and 2019-12-08 2019-12-08 Never used [facility] - exposure 00:00:00 00:00:00 [facility] Alcohol intake 2019-12-08 2019-12-08 Ex-drinker [facility] es - 00:00:00 00:00:00 (finding) [facility] Social History 2019-08-28 2019-08-28 [facility] 06:50:55 06:50:55 Smoking Status Start Date Stop Date Source Never smoker [facility] edical [place] Medications Ordered Filled Start Stop Current Ordering Indication Dosage Frequency Signature Comments Components Source Medication Medication Date Date Medication? Clinician (SIG) Name Name ursodioL 2019-02 Yes 500mg QD Take [address] (ACTIGALL) 1-01 mg by [facility] - 500 MG 15:50: mouth Medical tablet 44 daily. [place] pantoprazol 2019-02- Yes 40mg Q.5D Take [address] [facility] e 02-05 tablet (40 [facility] - (PROTONIX) 00:00: 23:59 mg total) edical 40 MG 00 :00 by mouth 2 [place] tablet (two) times daily for 84 days. sucralfate 2019-02- Yes 1g Take [address] (CARAFATE) 02-05 mLs (1 g Luke s - 100 mg/mL 00:00: 23:59 total) by Me dical suspension 00 :00 mouth Center every 6 (six) hours for 30 days. traMADoL 2019-02- Yes 100mg Take 2 [facility] (ULTRAM) 50 02-05 11-29 tablets Luke s - mg tablet 00:00: 23:59 (100 mg Medi dk 00 :00 total) by Center mouth every 6 (six) hours as needed for Pain for up to 28 days. Max Daily Amount: 400 mg traMADoL 2019- No 50mg Take [address] (ULTRAM) 50 10-23 by mouth Marilyn es - mg tablet 08:30: 00:00 every 6 Medi dk 37 :00 (six) Center hours as needed for Pain. levoFLOXaci 2019- No 750mg QD Take [address] n 10-23 mg by [facility] - (LEVAQUIN) 08:30: 00:00 mouth Medic al 750 MG 37 :00 daily. Center tablet midodrine 2019- No 5mg Q.[id number] Take [address] (PROAMATINE 10-23 [id number] by mouth 3 [facility] - ) 5 MG 08:30: 00:00 3D (three) Medical tablet 37 :00 times Center daily. midodrine Yes 10mg Q.[id number] Take [address] (PROAMATINE 10-23 [id number] tablets [facility] - ) 5 MG 00:00: 3D (10 mg Medical tablet 00 total) by Center mouth 3 (three) times daily. senna 2020- Yes 17.2mg QD Take [address] (SENOKOT) 10-23 tablets [facility] - 8.6 mg 00:00: 23:59 (17.2 mg Medica l tablet 00 :00 total) by Center mouth nightly. gabapentin 2020- Yes 200mg Q.[id number] Take [address] (NEURONTIN) 10-23 [id number] capsules [facility] - 100 MG 00:00: 23:59 3D (200 mg Medical capsule 00 :00 total) by Center mouth 3 (three) times daily. traMADoL 2020- No 100mg Take 2 [facility] (ULTRAM) 50 10-23 11- tablets Luke s - mg tablet 00:00: 00:00 (100 mg Medi kd 00 :00 total) by Center mouth every 6 (six) hours as needed for Pain. Max Daily Amount: 400 mg metroNIDAZO 2019- 2020- No 500mg Q.[id number] Take [address] LE (FLAGYL) 10-20 [id number] mg by [facility] - 500 MG 23:09: 00:00 3D mouth 3 Medical tablet 25 :00 (three) Center times daily. esomeprazol 2020- No 40mg QD Take [address] [facility] e (NEXIUM) 09-25 by mouth Luke s - 40 MG 00:00: 00:00 daily. Medical capsule 00 :00 Center Saline 2019-0 Yes Notes: Memoria Flush 0.9% 7-26 (Same as: l 21:00: BD [place] 00 Posiflush) Saline 2019-0 Yes Notes: Memoria Flush 0.9% 7-26 (Same as: l 21:00: BD [place] 00 Posiflush) Lidocaine 2019-0 Yes Notes: Memori a Hydrochlori 7-26 Preservati l de 10 MG/ML 16:00: ve free. He rmann Injectable 00 (Same as: Solution Xylocaine MPF) Lidocaine 2019-0 Yes Notes: Memori a Hydrochlori 7-26 Preservati l de 10 MG/ML 16:00: ve free. He rmann Injectable 00 (Same as: Solution Xylocaine MPF) Saline 2019-0 Yes Notes: Memoria Flush 0.9% 7-26 (Same as: l 15:08: BD [place] 00 Posiflush) pantoprazol 2019-0 Yes Notes: For Memoria e additive 7-26 IV push l 80 mg + 15:08: reconstitu Herm ramona Sodium 00 te with 10 Chloride ml 0.9% 0.9% IV 100 sodium mL chloride and push over 2 minutes. (Same as: Protonix) Saline 2019-0 Yes Notes: Memoria Flush 0.9% 7-26 (Same as: l 15:08: BD Nigel 00 Posiflush) pantoprazol 2019-0 Yes Notes: For Memoria e additive 7-26 IV push l 80 mg + 15:08: reconstitu Herm ramona Sodium 00 te with 10 Chloride ml [...] mL 7-25 Rate: 100 l 13:29: ml/hr, [place] 00 Infuse over: 10 hr, Route: IV, Dosing Weight 68.409 kg, Total Volume: 1,000, Start date: 08/30/19 8:29:00 CDT, Duration: 30 day, Stop date: 09/29/19 8:28:00 CDT, 1.84, m2, 0 D5NS 1,000 2020-0 Yes 1,000 mL, Me moria mL 7-25 Rate: 100 l 13:29: ml/hr, [place] 00 Infuse over: 10 hr, Route: IV, Dosing Weight 68.409 kg, Total Volume: 1,000, Start date: 08/30/19 8:29:00 CDT, Duration: 30 day, Stop date: 09/29/19 8:28:00 CDT, 1.84, m2, 0 Sodium 2020-0 Yes 250 mL, Memoria Chloride 7-24 Route: l 0.9% IV 21:33: IVPB, Nigel 00 Start date: 08/29/19 16:33:00 CDT, Duration: 30 [...] 7-24 25 mL, l (D50W) 21:11: Route: [place] IVP, Drug Form: INJ, Dosing Weight 68.409, [...] Yes 12.5 gm, Memor ia 50% Syringe 7- 25 mL, l (D50W) 21:11: Route: [place] 00 IVP, Drug Form: INJ, Dosing Weight [...] 00 10 mEq/hr. (Same as: KCL) Potassium 2019-0 No Notes: Memori a Chloride 7-24 Infuse at l 14:00: a rate of [place] 00 10 mEq/hr. (Same as: KCL) Lactulose 2019-0 No Notes: Memori a 667 MG/ML 7-24 (Same l Oral 02:57: as:Chronul Nigel Solution 00 ac) Lactulose 2019-0 No Notes: Memori a 667 MG/ML 7-24 (Same l Oral 02:57: as:Chronul Nigel Solution 00 ac) Lactulose 2019-0 No Notes: Memori a 667 MG/ML 7-24 (Same l Oral 02:54: as:Chronul [place] Solution 00 ac) Lactulose 2020-0 No Notes: Memori a 667 MG/ML 7-24 (Same l Oral 02:54: as:Chronul [place] Solution 00 ac) ondansetron 2020-0 Yes Notes: Guy zoila 7-23 (Same as: l 23:00: Zofran) Nigel 00 MEDICATION WASTE Product Size: 4 mg Product Wasted: ___ mg ondansetron 2020-0 Yes Notes: Guy zoila 7-23 (Same as: l 23:00: Zofran) [place] 00 MEDICATION WASTE Product Size: 4 mg [...] l 80 mg + 07:15: reconstitu Herm ramona Sodium 00 te with 10 Chloride ml 0.9% 0.9% IV 100 sodium mL chloride and push over 2 minutes. (Same as: Protonix) Trazodone 2019-0 Yes Notes: Memori a 7-23 (Same As: l 07:15: Desyrel) Nigel 00 Maalox 2020-0 Yes Notes: Memoria Advanced 7- (aluminum l Regular 07:15: hydroxide- Herm ramona Strength 00 magnesium SUSP hyd-simeth icone 200-200-20 mg/5ml 30 ml ud DAKOTAH) Albuterol 2019-0 Yes Notes: Memori a 0.833 MG/ML - (Same as: l / 07:15: Duoneb) Nigel Ipratropium 00 [place] 0.167 MG/ML Inhalant Solution [DuoNeb] Docusate 2019-0 Yes Notes: Memoria Sodium 100 - (Same as: l MG Oral 07:15: Colace) Nigel Capsule 00 (Do Not [Colace] Crush) Robitussin 2019-0 Yes Notes: Memor ia 100 mg/5 mL - (Same as: l oral liquid 07:15: Robitussin [place] 00 ) Zofran 2019-0 Yes Notes: Memoria 7-23 (Same as: l 07:15: Zofran) [place] 00 MEDICATION WASTE Product Size: 4 mg Product Wasted: ___ mg Hydralazine 2019-0 Yes Notes: Guy zoila - (Same as: l 07:15: Apresoline Nigel 00 [...] l 07:15: BD Nigel 00 Posiflush Sterile Ondansetron 2020-0 Yes Notes: Guy zoila 7-23 (Same as: l 07:15: Zofran) [place] 00 MEDICATION WASTE Product Size: 4 mg Product Wasted: ___ mg pantoprazol 2020-0 No Notes: For Memoria e additive 7-23 IV push l 80 mg + 07:15: reconstitu Herm ramona Sodium 00 te with 10 Chloride ml 0.9% 0.9% IV 100 sodium mL chloride and push over 2 minutes. (Same as: Protonix) Trazodone 2020-0 Yes Notes: Memori a 7-23 (Same As: l 07:15: Desyrel) Nigel 00 Maalox 2020-0 Yes Notes: Memoria Advanced 7-23 (aluminum l Regular 07:15: hydroxide- Herm ramona Strength 00 magnesium SUSP hyd-simeth icone 200-200-20 mg/5ml 30 ml ud DAKOTAH) Albuterol 2020-0 Yes Notes: Memori a 0.833 MG/ML -23 (Same as: l / 07:15: Duoneb) Nigel Ipratropium 00 [place] 0.167 MG/ML Inhalant Solution [DuoNeb] Docusate 2020-0 [...] zoila 7-23 (Same as: l 07:15: Apresoline [place] 00 ) Push over 5 minutes Sodium 2020-0 No 1,000 mL, Memori a Chloride 7-23 Rate: 100 l 0.9% IV 07:15: ml/hr, [place] 1,000 mL 00 Infuse over: 10 hr, Route: IV, Dosing Weight 68.409 kg, Total Volume: 1,000, Start date: 08/28/19 2:15:00 CDT, Duration: 30 day, Stop date: 09/27/19 2:14:00 CDT, 1.84, m2, 0 Saline 2020-0 Yes Notes: Memoria Flush 0.9% - Same as: l 07:15: BD Nigel 00 Posiflush Sterile pantoprazol 2020-0 No Notes: For Memoria e - IV push l 07:07: reconstitu [place] 00 te with 10 ml 0.9% sodium chloride and push over 2 minutes. (Same as: Protonix) Morphine 2020-0 Yes Notes: Memoria 7- (Same l 07:07: as:MORPhin [place] 00 e Sulfate) Labetalol 2019-0 Yes Notes: Memori a - (Same as: l 07:07: Normodyne, Nigel 00 Trandate) Push over 2 minutes Give bolus over 2-3 minutes. NS (Bolus) 2019-0 No 1,000 mL, Me moria IV 7- 1,000 l 07:07: ml/hr, Nigel 00 Infuse Over: 1 hr, Route: IV, 1,000, Drug form: INJ, ONCE, Priority: STAT, Dosing Weight 68.409 kg, Start date: 08/28/19 2:07:00 CDT, Stop date: 08/28/19 2:07:00 CDT, 0 pantoprazol 2020-0 No Notes: For Memoria e - IV push l 07:07: reconstitu Nigel 00 te with 10 ml 0.9% sodium chloride and push over 2 minutes. (Same as: Protonix) Morphine 2020-0 Yes Notes: Memoria 7- (Same l 07:07: as:MORPhin [place] 00 e Sulfate) Labetalol 2020-0 Yes Notes: Memori a 7- (Same as: l 07:07: Normodyne, [place] 00 Trandate) Push over 2 minutes Give [...] Chloride 7-23 1,000 l 0.9% 07:01: ml/hr, [place] (Bolus) IV 00 Infuse Over: 1 hr, [...] tab, PO, l tablet 17:00: ONCE, 0 [place] 00 Refill(s) ursodiol 2020-0 No 500 mg = 1 Mem oria 500 mg oral 7-22 tab, PO, l tablet 17:00: ONCE, 0 Nigel 00 Refill(s) Esomeprazol 2020-0 No 40 mg, PO, Memoria e 7-22 Daily, 0 l 14:06: Refill(s) [place] 00 ferrous 2020-0 No 325 mg = 1 Guy zoila sulfate 325 7-22 tab, PO, l MG Oral 14:06: BID, 0 Nigel Tablet 00 Refill(s) Esomeprazol 2020-0 No 40 mg, PO, Memoria e 7-22 Daily, 0 l 14:06: Refill(s) [place] 00 ferrous 2020-0 No 325 mg = 1 Guy zoila sulfate 325 7-22 tab, PO, l MG Oral 14:06: BID, 0 Nigel Tablet 00 Refill(s) HYDROcodone 2020-0 2020- No 1{tbl} Take [address] -acetaminop 02-18 tablet by Mariha montez (NORCO 00:00: 23:59 mouth Medic al [...] dical MG tablet 00 :00 [facility] (twelve) hours for 3 [...] 00 (two) Center times daily. pantoprazol 2018-02 2020- No 40mg Q.5D Take [address] [facility] e 12-06 by mouth 2 [facility] - (PROTONIX) 00:00: 00:00 (two) Medic al 40 MG 00 :00 times Center tablet daily . HYDROcodone 2020- No 1{tbl} Take [address] -acetaminop 08-31 tablet by Mariah montez (NORCO 00:00: 00:00 [...] Take [address] -acetaminop 6-27 01-14 tablet by Mariah montez (NORCO 00:00: 00:00 mouth 3 Med ical 10-325) 00 :00 (three) Center 10-325 mg times per tablet daily as needed. Max Daily Amount: 3 tablets docusate 2019- No 100mg Take [address] [facility] sodium 6-14 09-07 mg by Adriana - (COLACE) 00:00: 00:00 mouth as Medi dk 100 MG 00 :00 needed. Center capsule nystatin 2019- No Q.5D Apply [facility] (MYCOSTATIN 5-12 05-11 topically Mariah sweeney - ) 100,000 00:00: 23:59 2 (two) Medi dk unit/gram 00 :00 times Center powder daily. Immunizations Ordered Immunization Filled Immunization Date Status Commen ts Source Name Name Influenza Four-QIV PF 2019-10-[address] [facility] - 3YR+ 00:00:00 [facility] Meningococcal 2019-10-[address] - Conjugate 00:00:00 [facility] Pneumococcal 2019-10-[address] [facility] - Conjugate (Prevnar) 00:00:00 Medic al [place] 13-Valent Meningococcal B, Omv 2019-10-[address] [facility] - 00:00:00 Medical [place] HiB 2019-10-[address] [facility] - 00:[facility]:00 Medical Center Vital Signs Vital Name Observation Time Observation Value Comments Source Systolic blood 2019-12-07 08:00:00 105 mm[Hg] [facility] - pressure [facility] Diastolic blood 2019-12-07 08:00:00 69 mm[Hg] [facility] pressure [facility] Heart rate 2019-12-07 08:00:00 96 /min [facility] - [facility] Body temperature 2019-12-07 08:00:00 36.28 [place] [facility] Respiratory rate 2019-12-07 08:00:00 20 /min [facility] Oxygen saturation in 2019-12-07 08:00:00 100 /min [facility] - Arterial blood by Medical Ce nter Pulse oximetry Body weight 2019-12-06 06:00:00 57.153 kg [facility] BMI 2019-12-06 06:00:00 18.08 kg/m2 [facility] Body height 2019-12-04 23:58:00 177.8 cm [facility] Heart Rate 2019-09-01 04:14:00 [facility] [place] Respitory Rate 2019-09-01 04:14:00 Memori al Nigel Systolic (mm Hg) 2019-09-01 04:14:00 Guy rial [place] Diastolic (mm Hg) 2019-09-01 04:14:00 Mem orial [place] Respitory Rate 2019-09-01 01:19:00 Memori al [place] Temperature Oral (F) 2019-09-01 00:33:00 99.1 F [facility] [place] Heart Rate 2019-09-01 00:33:00 Memorial Nigel Respitory Rate 2019-09-01 00:33:00 Memori al Nigel Systolic (mm Hg) 2019-09-01 00:33:00 Guy rial [place] Diastolic (mm Hg) 2019-09-01 00:33:00 Mem orial [place] Temperature Oral (F) 2019-08-31 21:00:00 98.3 F Memorial Nigel Heart Rate 2019-08-31 21:00:00 Memorial Nigel Systolic (mm Hg) 2019-08-31 21:00:00 Guy rial Nigel Diastolic (mm Hg) 2019-08-31 21:00:00 Mem orial [place] Temperature Oral (F) 2019-08-31 17:00:00 98.4 F Memorial Nigel Height 2019-08-28 06:22:00 177.8 cm Memorial Nigel Weight 2019-08-28 06:22:00 [facility] [place] BMI Calculated 2019-08-28 06:22:00 Memori al [place] Procedures Procedure Date / Time Performing Clinician Source Performed REPORT OF PROCEDURE - 2019-12-08 08:16:48 Wilmer Santiagou CH I [facility] POCT-GLUCOSE METER 2019-12-07 12:44:00 Megan Hannahlyric Millerhad CH I [facility] POCT-GLUCOSE METER 2019-12-07 06:04:00 Fred Hannahcheco Reshad CH I [facility] BASIC METABOLIC PANEL (7) 2019-12-07 05:47:00 Neyda Peraza CH I [facility] PROTHROMBIN TIME/INR 2019-12-07 05:47:00 Stu [facility] MAGNESIUM 2019-12-07 05:47:00 Stu [facility] PHOSPHORUS 2019-12-07 05:47:00 Stu [facility] CBC W/PLT COUNT & AUTO 2019-12-07 05:47:00 Stu [facility] POCT-GLUCOSE METER 2019-12-06 23:52:00 Megan Hannahlyric Millerhad CH I [facility] HEMOGLOBIN AND HEMATOCRIT 2019-12-06 20:41:00 Sujata Valdez [facility] POCT-GLUCOSE METER 2019-12-06 17:14:00 Fred Hannahcheco Millerhad CH I [facility] POCT-GLUCOSE METER 2019-12-06 12:27:00 Camden Yrn Millerhad CH I [facility] POCT-GLUCOSE METER 2019-12-06 05:56:00 Megan Hannahlyric Reshad CH [facility] CBC W/PLT COUNT & AUTO 2019-12-06 05:23:00 Stu [facility] BASIC METABOLIC PANEL (7) 2019-12-06 05:22:00 Neyda Peraza CH I [facility] PROTHROMBIN TIME/INR 2019-12-06 05:22:00 Stu [facility] MAGNESIUM 2019-12-06 05:22:00 Stu [facility] PHOSPHORUS 2019-12-06 05:22:00 Neyda Peraza [facility] POCT-GLUCOSE METER 2019-12-05 23:28:00 Yrn Hannah [facility] HEMOGLOBIN AND HEMATOCRIT 2019-12-05 19:26:00 Wilmer Santiago [facility] LIPASE 2019-12-05 19:25:00 Lou Benavides [facility] US THORACENTESIS 2019-12-05 18:00:00 Lou Benavides [facility] XR CHEST 1 VIEW 2019-12-05 17:59:00 Michelle Eric [facility] - PORTABLE/BEDSIDE [facility] GLUCOSE PLEURAL FLUID 2019-12-05 17:55:00 Lou Benavides [facility] PROTEIN, TOTAL, PLEURAL 2019-12-05 17:55:00 Kennedy, Lou Kwong [facility] BODY FLUID CELL COUNT WITH 2019-12-05 17:54:00 Lou Benavides [facility] BODY FLUID CULTURE + GRAM 2019-12-05 17:54:00 Lou Benavides [facility] LACTATE DEHYDROGENASE 2019-12-05 17:36:00 Yrn Hannah [facility] ([facility]), PLEURAL FLUID Medical [facility] POCT-GLUCOSE METER 2019-12-05 11:42:00 Yrn Hannah [facility] POCT-GLUCOSE METER 2019-12-05 05:25:00 Vinay Brooks [facility] BASIC METABOLIC PANEL (7) 2019-12-05 05:18:00 Stu Neyda [facility] PROTHROMBIN TIME/INR 2019-12-05 05:18:00 Stu [facility] MAGNESIUM 2019-12-05 05:18[facility] 2019-12-05 05:18:00 Stu [facility] CBC W/PLT COUNT & AUTO 2019-12-05 05:18:00 Lucille Belcher [facility] POCT-GLUCOSE METER 2019-12-04 17:48:00 [facility] CT ABDOMEN/PELVIS WITH IV 2019-12-04 13:15:00 Noelle Waters [facility] HEMOGLOBIN AND HEMATOCRIT 2019-12-04 12:36:00 Lucille Belcher [facility] CBC (HEMOGRAM ONLY) 2019-12-04 12:36:00 Noelle Waters [facility] POCT-GLUCOSE METER 2019-12-04 11:54:00 Brooks [facility] POCT-GLUCOSE METER 2019-12-04 05:43:00 [facility] BASIC METABOLIC PANEL (7) 2019-12-04 04:23:00 Stu [facility] PROTHROMBIN TIME/INR 2019-12-04 04:23:00 Stu [facility] CBC W/PLT COUNT & AUTO 2019-12-04 04:23:[address] [facility] HEMOGLOBIN AND HEMATOCRIT 2019-12-04 00:17:00 Lucille Belcher [facility] PREPARE LEUKO-REDUCED RBC 2019-12-03 23:54:00 Vaibhav Bob [facility] POCT-GLUCOSE METER 2019-12-03 23:22:00 [facility] HEMOGLOBIN AND HEMATOCRIT 2019-12-03 18:23:00 Lucille Belcher [facility] POCT-GLUCOSE METER 2019-12-03 17:35:00 [facility] UPPER ENDOSCOPY,SUBMUCOSAL 2019-12-03 15:42:00 Wilmer Santiago [facility] POCT-GLUCOSE METER 2019-12-03 11:46:00 [facility] HEMOGLOBIN AND HEMATOCRIT 2019-12-03 11:40:00 Lucille Belcher [facility] POCT-GLUCOSE METER 2019-12-03 06:09:00 [facility] BASIC [facility]ABOLIC PANEL (7) 2019-12-03 04:16:00 Stu Neyda [facility] PROTHROMBIN TIME/INR 2019-12-03 04:16:00 [facility] W/PLT COUNT & AUTO 2019-12-03 04:16:00 Lucille Belcher [facility] HEMOGLOBIN AND HEMATOCRIT 2019-12-03 00:58:00 Vaibhav Bob [facility] TRANSFUSE LEUKO-REDUCED 2019-12-02 23:36:31 Vaibhav Bob [facility] - RED BLOOD CELLS [facility] POCT-GLUCOSE METER 2019-12-02 23:26:00 [facility] ABDOMINAL WITH DOPPLER 2019-12-02 20:20:00 Noelle Waters [facility] ABORH, MANUAL 2019-12-02 19:55:00 [facility]EMO[facility] HEMATOCRIT 2019-12-02 18:17:00 Lucille Belcher [facility] POCT-GLUCOSE METER 2019-12-02 17:23:00 [facility] POCT-GLUCOSE METER 2019-12-02 12:20:00 [facility] HEMOGLOBIN AND HEMATOCRIT 2019-12-02 12:17:00 Lucille Belcher [facility] SARS-COV2/RT-PCR ([facility] & 2019-12-02 08:35:00 Noelle Waters [facility] REF [facility]) [facility] BASIC METABOLIC PANEL (7) 2019-12-02 05:40:00 Stu Neyda [facility] PROTHROMBIN TIME/INR 2019-12-02 05:40:00 Stu [facility] CBC W/PLT COUNT & AUTO 2019-12-02 05:40:00 Lucille Belcher [facility] BASIC METABOLIC PANEL (7) 2019-12-01 23:15:00 Lucille Belcher [facility] PROTHROMBIN TIME/INR 2019-12-01 23:15:00 [facility] HEPAT[facility] FUNCTION PANEL 2019-12-01 23:15:00 Ye Lucille [facility] LIPASE 2019-12-01 23:15:00 Ye [facility] CBC W/PLT COUNT & AUTO 2019-12-01 23:15:00 Ye [facility] RHYTHM STRIP - SCAN 2019-10-28 12:11:28 Pawan Lowe [facility] POCT-GLUCOSE METER 2019-10-24 08:37:00 [facility] BASIC METABOLIC PANEL (7) 2019-10-24 06:13:00 [facility] 2019-10-24 06:13:00 [facility] PHOS[facility]US 2019-10-24 06:13:00 Erin [facility] PT/APTT 2019-10-24 06:13:00 Erin [facility] CBC (HEMOGRAM ONLY) 2019-10-24 06:13:00 Fabiola Le [facility] POCT-GLUCOSE METER 2019-10-23 21:11:00 [facility] POCT-GLUCOSE METER 2019-10-23 16:27:00 [facility] POCT-GLUCOSE METER 2019-10-23 11:46:00 [facility] POCT-GLUCOSE METER 2019-10-23 07:45:00 [facility] BASIC METABOLIC PANEL (7) 2019-10-23 06:34:00 Xi Owenmsi [facility] MAGNESIUM 2019-10-23 06:34:00 Cr Owen [facility] PHOSPHORUS 2019-10-23 06:34:00 [facility] PT/APTT 2019-10-23 06:34:00 Lexie [facility] CBC (HEMOGRAM ONLY) 2019-10-23 06:34:00 Fabiola [facility] CBC W/PLT COUNT & AUTO 2019-10-22 22:27:00 [facility] POCT-GLUCOSE METER 2019-10-22 21:30:00 [facility] POCT-GLUCOSE METER 2019-10-22 15:36:00 [facility]SE METER 2019-10-22 12:14:00 [facility] POCT-GLUCOSE METER 2019-10-22 06:51:00 [facility] POCT-GLUCOSE METER 2019-10-22 06:27:00 [facility] BASIC METABOLIC PANEL (7) 2019-10-22 06:24:00 ErinXi canalesmsi I [facility] MAGNESIUM 2019-10-22 06:24:00 ErinXi [facility] PHOSPH[facility]US 2019-10-22 06:24:00 [facility]Xi [facility] PT/APTT 2019-10-22 06:24:00 Jordanjosephineparker [facility] CBC (HEMOGRAM ONLY) 2019-10-22 06:24:00 Fabiola Le [facility] POCT-GLUCOSE METER 2019-10-21 23:48:00 [facility] POCT-GLUCOSE METER 2019-10-21 18:40:00 Snow Adams [facility] POCT-GLUCOSE METER 2019-10-21 12:29:00 Sixto Ashleyfawad [facility] AMYLASE PERITONEAL FLUID 2019-10-21 10:19:00 Bryan Loganlupefawad [facility] BASIC METABOLIC PANEL (7) 2019-10-21 09:59:00 [facility] MAGNESIUM 2019-10-21 09:59:00 [facility] PHOSPHORUS 2019-10-21 09:59:00 [facility] PT/APTT 2019-10-21 09:59:00 [facility] CBC (HEMOGRAM ONLY) 2019-10-21 09:59:00 Fabiola Le [facility] SARS-COV2/RT-PCR ([facility] & 2019-10-21 07:15:00 Catherine Maciel [facility] - REF LABS) [facility] POCT-GLUCOSE METER 2019-10-21 06:57:00 Sixto Ashleyfawad [facility] POCT-GLUCOSE METER 2019-10-21 06:28:00 [facility] POCT-GLUCOSE METER 2019-10-21 05:58:00 Logan Adamslupefawad [facility] POCT-GLUCOSE METER 2019-10-21 00:05:00 SixtoLoganlupefawad [facility] POCT-GLUCOSE METER 2019-10-20 17:46:00 Logan Adamsgrand valleyfawad [facility] POCT-GLUCOSE METER 2019-10-20 11:45:00 [facility] POCT-GLUCOSE METER 2019-10-20 07:04:00 [facility] Logangrand valleyfawad [facility] BASIC METABOLIC PANEL (7) 2019-10-20 03:39:00 ErinCr [facility] MAGNESIUM 2019-10-20 03:39:00 [facility] PHOSPH[facility]US 2019-10-20 03:39:00 Erin [facility] PT/APTT 2019-10-20 03:39:00 [facility] CBC (HEMOGRAM ONLY) 2019-10-20 03:39:00 Fabiola Le [facility] POCT-GLUCOSE METER 2019-10-20 00:18:00 [facility] TRANSFUSION SERVICE REPORT 2019-10-19 18:01:34 Pawan Lowe [facility] - SCAN Scanning [facility] POCT-GLUCOSE METER 2019-10-19 17:28:00 SixtoSnow [facility] BASIC METABOLIC PANEL (7) 2019-10-19 16:11:00 [facility] PHOSPHORUS 2019-10-19 16:11:00 [facility] MAGNESIUM 2019-10-19 16:11:00 [facility] POCT-GLUCOSE METER 2019-10-19 12:30:00 Snow Adams [facility] POCT-GLUCOSE METER 2019-10-19 11:56:00 SixtoLogangrand valleyfawad [facility] XR CHEST 1 VIEW 2019-10-19 08:05:00 Mitchell Sweeney [facility] PORTABLE/BEDSIDE [facility] POCT-GLUCOSE METER 2019-10-19 06:37:00 SixtoLogangrand valleyfawad [facility] BASIC METABOLIC PANEL (7) 2019-10-19 01:29:00 Cr Owen [facility] MAGNESIUM 2019-10-19 01:29:00 [facility] PHOSPHORUS 2019-10-19 01:29:00 [facility] BLOOD GAS, ARTERIAL 2019-10-19 01:29:00 [facility] PT/APTT 2019-10-19 01:29:00 [facility] CBC (HEMOGRAM ONLY) 2019-10-19 01:29:00 Chelo Collins [facility] POCT-GLUCOSE METER 2019-10-19 00:20:00 [facility] PREPARE RBC 2019-10-18 23:55:00 Jessica [facility] PREPARE RBC 2019-10-18 23:54:00 Jessica [facility] CBC (HEMOGRAM ONLY) 2019-10-18 20:26:00 [facility] InstituteKristiaylin [facility] TRANSFUSION SERVICE REPORT 2019-10-18 18:05:00 Pawan Lowe [facility] POCT-GLUCOSE METER 2019-10-18 17:16:00 [facility] CBC (HEMOGRAM ONLY) 2019-10-18 12:20:00 Chelo Collins [facility] POCT-GLUCOSE METER 2019-10-18 12:01:00 [facility] BLOOD GAS, ARTERIAL 2019-10-18 05:05:00 [facility] CBC (HEMOGRAM ONLY) 2019-10-18 04:09:00 [facility] BASIC METABOLIC PANEL (7) 2019-10-18 04:09:00 ErinXiCr I [facility] MAGNESIUM 2019-10-18 04:09:00 [facility] PHOSPHORUS 2019-10-18 04:09:00 Lexie [facility] PT/APTT 2019-10-18 04:09:00 Lexie [facility] XR CHEST 1 VIEW 2019-10-18 03:48:00 Mitchell Sweeney [facility] - PORTABLE/BEDSIDE [facility] BLOOD GAS, ARTERIAL 2019-10-18 01:22:00 Issa Johnson [facility] POCT-GLUCOSE METER 2019-10-18 00:42:00 Snow Adams [facility] CBC (HEMOGRAM ONLY) 2019-10-17 22:18:00 [facility] BASIC METABOLIC PANEL (7) 2019-10-17 22:18:00 [facility] CH I [facility] MAGNESIUM 2019-10-17 22:18:00 [facility] PHOSPHORUS 2019-10-17 22:18:00 [facility] BLOOD GAS, ARTERIAL 2019-10-17 22:18:00 [facility] PT/APTT 2019-10-17 22:18:00 [facility] PREPARE PLASMA 2019-10-17 21:19:[address] [facility] PREPARE PLATELETS 2019-10-17 21:19:[address] [facility] TRANSFUSE LEUKO-REDUCED 2019-10-17 20:23:46 Nelson Grier CH I [facility] - RED BLOOD CELLS [facility] TRANSFUSE LEUKO-REDUCED 2019-10-17 19:57:19 Nelson Grier CH I [facility] - RED BLOOD CELLS [facility] CALCIUM, IONIZED 2019-10-17 19:50:15 Marc Clark [facility] BLOOD GAS, ARTERIAL 2019-10-17 19:50:15 Marc Clark [facility] SODIUM NA-STAT LAB 2019-10-17 19:50:15 Marc Clark CH I [facility] POTASSIUM-STAT LAB 2019-10-17 19:50:15 Marc Clark CH I [facility] GLUCOSE-STAT LAB 2019-10-17 19:50:15 Marc Clark [facility] HGB/HCT (H&H) - STAT LAB 2019-10-17 19:50:15 Marc Clark [facility] PROTHROMBIN TIME/INR 2019-10-17 19:38:51 Deborah Joiner [facility] APTT 2019-10-17 19:38:51 Deborah Joiner [facility] TRANSFUSE LEUKO-REDUCED 2019-10-17 19:35:30 Nelson Grier CH I [facility] - RED BLOOD CELLS [facility] PREPARE RBC 2019-10-17 19:35:00 Jessica Catherinejuan Lucio [facility] TRANSFUSE LEUKO-REDUCED 2019-10-17 19:21:12 Nelson Grier CH I [facility] - RED BLOOD CELLS [facility] CALCIUM, IONIZED 2019-10-17 18:51:43 Marc Clark [facility] BLOOD GAS, ARTERIAL 2019-10-17 18:51:43 Marc Clark [facility] SODIUM NA-STAT LAB 2019-10-17 18:51:43 Marc Clark CH I [facility] POTASSIUM-STAT LAB 2019-10-17 18:51:43 Marc Clark CH I [facility] GLUCOSE-STAT LAB 2019-10-17 18:51:43 Marc Clark [facility] HGB/HCT (H&H) - STAT LAB 2019-10-17 18:51:43 Marc Clark [facility] TRANSFUSE LEUKO-REDUCED 2019-10-17 18:41:07 Nelson Grier CH I [facility] RED BLOOD CELLS [facility] TYPE AND SCREEN, AUTOMATED 2019-10-17 17:32:00 Marc Clark [facility] [place] FLUORO NON-SPECIFIC UP 2019-10-17 17:14:00 Marc Clark [facility] TO 1 HOUR [facility] BLOOD GAS, ARTERIAL 2019-10-17 16:59:[address] [facility] SODIUM NA-STAT LAB 2019-10-17 16:59:[address] [facility] POTASSIUM-STAT LAB 2019-10-17 16:59:[address] [facility] GLUCOSE-STAT LAB 2019-10-17 16:59:[address] [facility] HGB/HCT (H&H) - STAT LAB 2019-10-17 16:59:19 Nelson Grier [facility] TISSUE EXAM 2019-10-17 16:26:00 Marc Clark [facility] BLOOD GAS, ARTERIAL 2019-10-17 15:20:[address] [facility] SODIUM NA-STAT LAB 2019-10-17 15:20:[address] [facility] POTASSIUM-STAT LAB 2019-10-17 15:20:[address] [facility] GLUCOSE-STAT LAB 2019-10-17 15:20:[address] [facility] HGB/HCT (H&H) - STAT LAB 2019-10-17 15:20:44 Nelson Grier [facility] CHOLECYSTECTOMY 2019-10-17 13:39:00 Marc Clark [facility] SPLENECTOMY 2019-10-17 13:39:00 Marc Clark [facility] POCT-GLUCOSE METER 2019-10-17 06:21:00 Bryan [facility] POCT-GLUCOSE METER 2019-10-17 01:06:00 Bryan [facility] CT ABDOMEN/PELVIS WITH & 2019-10-16 10:43:00 Logan Adamscassie [facility] WITHOUT IV CONTRAST [facility] er REPORT OF PROCEDURE - 2019-10-15 18:42:29 Wilmer Santiago I [facility] - ENDOSCOPY [facility] UPPER ENDOSCOPY,ULTRASOUND 2019-10-15 18:02:00 Wilmer Santiago [facility] POCT-GLUCOSE METER 2019-10-15 12:47:00 Bryan [facility] POCT-GLUCOSE METER 2019-10-15 12:14:00 Bryan [facility] POCT-GLUCOSE METER 2019-10-15 08:52:00 Bryan [facility] POCT-GLUCOSE METER 2019-10-15 08:31:00 [facility] URINALYSIS W/ MICROSCOPIC 2019-10-15 08:13:00 Cr Owen [facility] IGG SUBCLASS-4 ONLY 2019-10-15 05:32:00 ReddRicardo [facility] COMPREHENSIVE METABOLIC 2019-10-15 05:32:00 Jorge Arcos In [facility] CBC (HEMOGRAM ONLY) 2019-10-15 05:32:00 Jorge Arcos In [facility] PT/APTT 2019-10-15 05:32:00 Jorge Arcos In [facility] HEPATIC FUNCTION PANEL 2019-10-14 11:59:00 MaidensRicardo [facility] BASIC METABOLIC PANEL (7) 2019-10-14 11:59:00 Ricardo Rainey [facility] XR ABDOMEN / KUB 1 VIEW 2019-10-14 09:16:00 [facility] SARS-COV2/RT-PCR ([facility] & 2019-10-14 04:48:00 Jessica, Catherine Khadijah [facility] - REF LABS) [facility] BASIC METABOLIC PANEL (7) 2019-10-14 04:34:00 Jessica, Catherine [facility] HEPATIC FUNCTION PANEL 2019-10-14 04:34:00 Jessica, Catherine Formane I [facility] MAGNESIUM 2019-10-14 04:34:00 Jessica, [facility] PT/APTT 2019-10-14 04:34:00 Jessica, [facility] IRON, TIBC, % SAT. 2019-10-14 04:34:00 [facility] LIPASE 2019-10-14 04:34:00 [facility] TRIGLYCERIDES 2019-10-14 04:34:00 [facility] CBC W/PLT COUNT & AUTO 2019-10-14 04:34:00 Jessica, Catherine Lucio I [facility] DIFFERENTIAL [facility] SARS-COV2/RT-PCR ([facility] & 2019-08-26 19:33:00 [facility] - REF LABS) [facility] RHYTHM STRIP - SCAN 2019-02-26 16:18:13 Provider, [facility] TRANSFUSION SERVICE REPORT 2019-02-19 18:00:43 Provider, [facility] RHYTHM STRIP - SCAN 2019-02-19 11:21:51 Provider, [facility] PREPARE LEUKO-REDUCED RBC 2019-02-18 23:54:00 Jacob Pinon [facility] TRANSFUSION SERVICE REPORT 2019-02-18 18:00:29 Provider, [facility] COMPREHENSIVE METABOLIC 2019-02-18 13:36:00 Brian Franklin [facility] FERRITIN 2019-02-18 13:36:00 Brian Franklin [facility] HEMOGLOBIN AND HEMATOCRIT 2019-02-18 12:16:00 Jacob Pinon [facility] TRANSFUSE LEUKO-REDUCED 2019-02-17 14:53:01 Austin Pinonbrutus Anaid [facility] RED BLOOD CELLS [facility] TYPE AND SCREEN, AUTOMATED 2019-02-17 09:56:00 Jacob Pinon [facility] HEMOGLOBIN AND HEMATOCRIT 2019-02-17 06:19:00 Carlos Fan [facility] CBC (HEMOGRAM ONLY) 2019-02-17 04:18:00 Austin Pinonbrutus Anaid [facility] BASIC METABOLIC PANEL (7) 2019-02-17 04:18:00 [facility] Anaid [facility] VITAMIN B12 AND FOLATE 2019-02-17 04:18:00 [facility] Anaid [facility] TSH/FREE T4 IF INDICATED 2019-02-17 04:18:00 Jacob Pinon [facility] IRON, TIBC, % SAT. 2019-02-17 04:18:00 Jacob Pinon [facility] (WITHOUT FERRITIN) [facility] LIPASE 2019-02-17 04:18:00 Ricardo Rainey [facility] HEMOGLOBIN AND HEMATOCRIT 2019-02-16 10:19:00 Jacob Pinon [facility] HEPATIC FUNCTION PANEL 2019-02-16 04:23:00 Fortunato [facility] PT/APTT 2019-02-16 04:23:00 [facility] PROTHROMBIN TIME/INR 2019-02-16 04:23:00 Fortunato [facility] CBC (HEMOGRAM ONLY) 2019-02-16 04:23:00 Jacob Pinon [facility] COMPREHENSIVE METABOLIC 2019-02-16 04:23:00 Jacob Pinon [facility] LIPASE 2019-02-16 04:23:00 Ricardo Rainey [facility] REPORT OF PROCEDURE - 2019-02-15 12:51:41 Naz, [facility] ENDOSCOPY [facility] [place] ERCP 2019-02-15 12:32:00 Naz, [facility] CYTOLOGY REQUEST 2019-02-15 12:26:16 Naz, [facility] CYTOLOGY 2019-02-15 12:26:00 Naz, [facility] CBC W/PLT COUNT & AUTO 2019-02-15 11:55:00 Ricardo Rainey [facility] ERCP 2019-02-15 11:00:00 Naz, [facility] ERCP,BALLOON SWEEPING 2019-02-15 11:00:00 Naz, [facility] ERCP,BILIARY STENT 2019-02-15 11:00:00 Anz, [facility] HEPATIC FUNCTION PANEL 2019-02-15 06:00:00 Fortunato [facility] BASIC METABOLIC PANEL (7) 2019-02-15 06:00:00 Melissa Farmer [facility] PT/APTT 2019-02-15 06:00:00 Fortunato [facility] PROTHROMBIN TIME/INR 2019-02-15 06:00:00 Melissa Farmer [facility] CBC W/PLT COUNT & AUTO 2019-02-14 06:24:00 Melissa Farmer [facility] (CELLAVISION MANUAL DIFF) 2019-02-14 06:24:00 Melissa Farmer [facility] HEPATIC FUNCTION PANEL 2019-02-14 04:34:00 Fortunato [facility] BASIC METABOLIC PANEL (7) 2019-02-14 04:34:00 Melissa Farmer [facility] PT/APTT 2019-02-14 04:34:00 Fortunato Melissa [facility] PROTHROMBIN TIME/INR 2019-02-14 04:34:00 FortunatoMelissa [facility] Plan of Care Planned Activity Planned Date Details Comments Source Future Scheduled 2019-12-19 PNEUMOCOCCAL VACCINE [facility] - Test 00:00:00 0-64 YRS (1 of 1 - Medical C enter PPSV23) [code = PNEUMOCOCCAL VACCINE 0-64 YRS (1 of 1 - PPSV23)] Encounters Start End Encounter Admission Attending Care Care Encounter Source Date/Time Date/Time Type Type Clinicians Facility Department ID 2019-10-14 Outpatient [facility] [id number] HH 12:19:08 2019-09-02 Inpatient U [facility] [id number] H H 05:03:00 2019-08-28 Inpatient [facility] [id number] [facility] W 00:57:00 2019-08-28 2019-08-28 [id number] 00:57:00 00:57:00 Carlos Diop Neo 2019-08-28 2019-08-28 [facility] [id number] 00:57:00 00:57:00 Carlos Diop Neo Results Test Description Test Time Test Comments Results Result Comments Source Glucose Pleural Fluid 2019-12-11 16:43:00 Test Item Value Reference Range Interpretation Comme nts Glucose, Pleural Fluid 114 mg/dL Refe rence range (test code = 2346-5) approxi mates that found in serum. ABAD (test code = ABAD) Performing Lab [facility] [id number] [place] [address] Parker Herman MD, PhD, VENKATA [facility] Hospital[facility]actate Dehydrogenase (LD), Pleural [id number] 16:42:00 Test Item Value Reference Range Interpretation Comments Lactate 36 U/L See Note: Reference Dehydrogenase (LD), Range:TR ANSUDATE Pleural Fluid (test : <113E XUDATE: code = 00453-3) >113SAMPL E SLIGHTLY LIPEMIC. ABAD (test code = Performing Lab ABAD) [facility] [address] [place] [address] Parker Herman MD, PhD, VENKATA [facility] HospitalBody fluid culture + gram [id number] 13:02:00 Test Item Value Reference Range Interpretation Comments Result (test code = 6463-4) No growth Gram Stain Result (test No organisms seen code = 1123) ABAD (test code = ABAD) [facility] HospitalBODY FLUID CULTURE + GRAM [id number] 13:02:00 Test Item Value Reference Range Interpretation Comments CULTURE (BEAKER) (test No growth code = 1095) GRAM STAIN RESULT <1+ White blood cells (BEAKER) (test code = seen 1123) GRAM STAIN RESULT No organisms seen (BEAKER) (test code = 801944) POC-Glucose [id number] 12:55:00 Test Item Value Reference Range Interpretation Comments POC-Glucose Meter (test 93 mg/dL 70-110 : TE STED AT [facility] code = 1538) [address] [facility], 770 30: Account Advisor/Techni romain ID = [id number] for MIRYAM GARCES Lab Interpretation (test Normal code = 76756-4) [facility] HospitalPOCT-GLUCOSE [id number] 12:55:00 Test Item Value Reference Range Interpretation Comments POC-GLUCOSE METER 93 mg/dL 70-110 : TESTED A T [facility] 6720 (BEAKER) (test code = [facility], 1538) [address]: Account Advisor/Techni romain ID = [id number] for DELFINO CABAN Protein, Total, Pleural [id number] 12:08:00 Test Item Value Reference Range Interpretation Comments PROTEIN, 1.1 Reference range is TOTAL, not defined and PLEURAL FLUID interpretation must (test code = be performed in the 2882-9) consideration o f the pathophysiology of the analyte and the clinical contex t. TEST PERFORMED AT [facility] ABAD (test Reference range is code = ABAD) not defined and interpretation must be performed in the consideration of the pathophysiology of the analyte and the clinical context. TEST PERFORMED AT [facility] HospitalPROTEIN, TOTAL, PLEURAL [id number] 12:08:00 Test Item Value Reference Range Interpretation Comments PROTEIN, TOTAL, 1.1 Reference ra nge is not PLEURAL FLUID defined and in terpretation (BEAKER) (test code must be performed in the = 2702177) consideration o f the pathophysiology of the analyte and the clinical context.TEST PE RFORMED AT [facility] Reference range is not defined and interpretation must be performed in the consideration of the pathophysiology of the analyte and the clinical context.TEST PERFORMED AT [facility] LABBasi Metabolic Panel 2019-12-07 06:49:00 Test Item Value Reference Range Interpretation Comments Sodium (test code = 136 meq/L 947-335 2224-2) Potassium (test code = 4.5 meq/L 3.5-5.1 2823-3) Chloride (test code = 107 meq/L 98-107 2075-0) CO2 (test code = 25 meq/L 22-29 2028-9) BUN (test code = 7 mg/dL 7-21 3094-0) Creatinine (test code 0.46 mg/dL 0.57-1.25 L = 2160-0) Glucose (test code = 96 mg/dL 70-105 2345-7) Calcium (test code = 7.6 mg/dL 8.4-10.2 L 15836-7) EGFR (test code = 215 mL/min/1.73 [place] [address]-7) NOT ACCURATE CREATININE CLEARANCE IN PREDICTING GLOMERULAR FILTRATION RATE . ESTIMATED GFR I S NOT APPLICABLE FOR DIALYSIS PATIENTS. ABAD (test code = ABAD) Account Advisor ID - EDASI Lab Interpretation Abnormal (test code = 77554-4) [facility] [id number] 06:49:00 Test Item Value Reference Range Interpretation Comments SODIUM (BEAKER) 136 meq/L 136-145 (test code = 381) POTASSIUM (BEAKER) 4.5 meq/L 3.5-5.1 (test code = 379) CHLORIDE (BEAKER) 107 meq/L 98-107 (test code = 382) CO2 (BEAKER) (test 25 meq/L 22-29 code = 355) BLOOD UREA NITROGEN 7 mg/dL 7-21 (BEAKER) (test code = 354) CREATININE (BEAKER) 0.46 mg/dL 0.57-1.25 L (test code = 358) GLUCOSE RANDOM 96 mg/dL 70-105 (BEAKER) (test code = 652) CALCIUM (BEAKER) 7.6 mg/dL 8.4-10.2 L (test code = 697) EGFR (BEAKER) (test 215 mL/min/1.73 ESTIM ATED GFR IS code = 1092) sq m NOT ACCURATE CREATININE CLEARANCE IN PREDICTING GLOMERULAR FILTRATION RATE . ESTIMATED GFR I S NOT APPLICABLE FOR DIALYSIS PATIEN TS. Account Advisor ID - [id number] 06:39:00 Test Item Value Reference Range Interpretation Comments Magnesium (test code = 2.1 mg/dL 1.6-2.6 16359-7) ABAD (test code = ABAD) Account Advisor ID - EDASI Lab Interpretation (test Normal code = 23494-0) [facility] 06:39:00 Test Item Value Reference Range Interpretation Comments Phosphorus (test code = 2.8 mg/dL 2.3-4.7 2777-1) ABAD (test code = ABAD) Account Advisor ID - EDASI Lab Interpretation (test Normal code = 71156-8) [facility] 06:39:00 Test Item Value Reference Range Interpretation Comments MAGNESIUM (BEAKER) (test code = 2.1 mg/dL 1.6-2.6 627) Account Advisor ID - [id number] 06:39:00 Test Item Value Reference Range Interpretation Comments PHOSPHORUS (BEAKER) (test code = 2.8 mg/dL 2.3-4.7 604) Account Advisor ID - EDASICBC with platelet count + automated [id number] 06:33:00 Test Item Value Reference Range Interpretation Comments WBC (test code = 6690-2) 9.5 3.5- 10.5 K/L RBC (test code = 789-8) 2.88 4.63- 6.08 M/L L MCHC (test code = 786-4) 32.7 32.3- 36.5 GM/DL L Hematocrit (test code = 4544-3) 27.5 % 40.1-51 L MCV (test code = 787-2) 95.5 fL 79-92.2 H MCH (test code = 785-6) 31.3 pg 25.7-32.2 RDW (test code = 788-0) 17.2 % 11.6-14.4 H Platelets (test code = 777-3) 676 150- 450 K/CU MM H MPV (test code = 62919-6) 10.0 fL 9.4-12.4 nRBC (test code = 413) 0 0- 0 /100 WBC % Neutros (test code = 429) 62 % % Lymphs (test code = 430) 15 % % Monos (test code = 431) 13 % % Eos (test code = 432) 8 % % Baso (test code = 437) 1 % # Neutros (test code = 670) 5.88 1.78- 5.38 K/L H # Lymphs (test code = 414) 1.41 1.32- 3.57 K/L # Monos (test code = 415) 1.24 0.30- 0.82 K/L H # Eos (test code = 416) 0.79 0.04- 0.54 K/L H # Baso (test code = 417) 0.09 0.01- 0.08 K/L H Immature Granulocytes-Relative 1 % 0-1 (test code = 2801) Lab Interpretation (test code = Abnormal 13318-8) [facility] W/PLT COUNT & AUTO [id number] 06:33:00 Test Item Value Reference Range Interpretation Comments WHITE BLOOD CELL COUNT (BEAKER) 9.5 K/ L 3.5-10.5 (test code = 775) RED BLOOD CELL COUNT (BEAKER) 2.88 M/ L 4.63-6.08 L (test code = 761) HEMOGLOBIN (BEAKER) (test code = 9.0 GM/DL 13.7-17.5 L 410) HEMATOCRIT (BEAKER) (test code = 27.5 % 40.1-51.0 L 411) MEAN CORPUSCULAR VOLUME (BEAKER) 95.5 fL 79.0-92.2 H (test code = 753) MEAN CORPUSCULAR HEMOGLOBIN 31.3 pg 25.7-32.2 (BEAKER) (test code = 751) MEAN CORPUSCULAR HEMOGLOBIN CONC 32.7 GM/DL 32.3-36.5 (BEAKER) (test code = 752) RED CELL DISTRIBUTION WIDTH 17.2 % 11.6-14.4 H (BEAKER) (test code = 412) PLATELET COUNT (BEAKER) (test 676 K/CU MM 150-450 H code = 756) MEAN PLATELET VOLUME (BEAKER) 10.0 fL 9.4-12.4 (test code = 754) NUCLEATED RED BLOOD CELLS 0 /100 WBC 0-0 (BEAKER) (test code = 413) NEUTROPHILS RELATIVE PERCENT 62 % (BEAKER) (test code = 429) LYMPHOCYTES RELATIVE PERCENT 15 % (BEAKER) (test code = 430) MONOCYTES RELATIVE PERCENT 13 % (BEAKER) (test code = 431) EOSINOPHILS RELATIVE PERCENT 8 % (BEAKER) (test code = 432) BASOPHILS RELATIVE PERCENT 1 % (BEAKER) (test code = 437) NEUTROPHILS ABSOLUTE COUNT 5.88 K/ L 1.78-5.38 H (BEAKER) (test code = 670) LYMPHOCYTES ABSOLUTE COUNT 1.41 K/ L 1.32-3.57 (BEAKER) (test code = 414) MONOCYTES ABSOLUTE COUNT (BEAKER) 1.24 K/ L 0.30-0.82 H (test code = 415) EOSINOPHILS ABSOLUTE COUNT 0.79 K/ L 0.04-0.54 H (BEAKER) (test code = 416) BASOPHILS ABSOLUTE COUNT (BEAKER) 0.09 K/ L 0.01-0.08 H (test code = 417) IMMATURE GRANULOCYTES-RELATIVE 1 % 0-1 PERCENT (BEAKER) (test code = 2801) Prothrombin time/[id number] 06:22:00 Test Item Value Reference Range Interpretation Comments Protime (test code = 14.7 11.9- 14.2 H 5902-2) seconds INR (test code = 1.18 <=5.90 6301-6) ABAD (test code = ABAD) Effective 07/03/2018: PT Reference Range ChangeNew: 11.9-14.2 Previous: 11.7-14.7 RECOMMENDED COUMADIN/WARFARIN INR THERAPY RANGESSTANDARD DOSE: 2.0-3.0 Includes: PROPHYLAXIS for venous thrombosis, systemic embolization; TREATMENT for venous thrombosis and/or pulmonary embolus.HIGH RISK: Target INR is 2.5-3.5 for patients wiht mechanical heart valves. Lab Interpretation Abnormal (test code = 05015-6) [facility] HospitalPROTHROMBIN TIME/[id number] 06:22:00 Test Item Value Reference Range Interpretation Comments PROTIME (BEAKER) (test code = 14.7 seconds 11.9-14.2 H 759) INR (BEAKER) (test code = 370) 1.18 <=5.90 Effective 07/03/2018: PT Reference Range ChangeNew: 11.9-14.2 Previous: 11.7- 14.7RECOMMENDED COUMADIN/WARFARIN INR THERAPY RANGESSTANDARD DOSE: 2.0-3.0 Includes: PROPHYLAXIS for venous thrombosis, systemic embolization; TREATMENT for venous thrombosis and/or pulmonary embolus.HIGH RISK: Target INR is2.5-3.5 for patients wiht mechanical heart valves.POCT-GLUCOSE [id number] 06:16:00 Test Item Value Reference Range Interpretation Comments POC-GLUCOSE METER 92 mg/dL 70-110 : TESTED A T [facility] 6720 (BEAKER) (test code = [facility], 1538) 865[address]: Account Advisor/Techni romain ID = [id number] for EDILMA , NORMAN POCT-GLUCOSE [id number] 00:04:00 Test Item Value Reference Range Interpretation Comments POC-GLUCOSE METER 81 mg/dL 70-110 : TESTED A T [facility] 6720 (BEAKER) (test code = [facility], 1538) 48035: Account Advisor/Techni romain ID = [id number] for EDILMA , NORMAN Hemoglobin and [id number] 20:49:00 Test Item Value Reference Range Interpretation Comments Hemoglobin (test code = 9.8 13.7- 17.5 GM/DL L 786-4) Hematocrit (test code = 30.0 % 40.1-51 L 4544-3) ABAD (test code = ABAD) Account Advisor ID - [id number] Lab Interpretation (test Abnormal code = 55897-1) [facility]MOGLOBIN AND [id number] 20:49:00 Test Item Value Reference Range Interpretation Comments HEMOGLOBIN (BEAKER) (test code = 9.8 GM/DL 13.7-17.5 L 410) HEMATOCRIT (BEAKER) (test code = 30.0 % 40.1-51.0 L 411) Account Advisor ID - [id number]-GLUCOSE [id number] 17:25:00 Test Item Value Reference Range Interpretation Comments POC-GLUCOSE METER 103 mg/dL 70-110 : TESTED A T [facility] 6720 (BEAKER) (test code = [facility], 153) 884[address]: Account Advisor/Techni romain ID = [id number] for PRINCESS MEGAN POCT-GLUCOSE [id number] 14:01:00 Test Item Value Reference Range Interpretation Comments POC-GLUCOSE METER 99 mg/dL 70-110 : TESTED A T [facility] 6720 (BEAKER) (test code = [facility], 153) 55490: Account Advisor/Techni romain ID = [id number] for ANDRÉS VOGEL CHUN POCT-GLUCOSE [id number] 13:51:00 Test Item Value Reference Range Interpretation Comments POC-GLUCOSE METER 84 mg/dL 70-110 : TESTED A T [facility] 6720 (BEAKER) (test code = [facility], 153) 44095: Account Advisor/Techni romain ID = [id number] for NEERAJ ADELAIDAJON U/S, [id number] 13:05:00Laterality?->RightReason for exam:- >pleural effusionSpecimen to be collected:->ldh, protein, glucose, amylase, lipase, gram stain, culture, cs and cultureShould this be performed at the bedside?->NoLabs to be Ordered:->Glucose+LDH+ProteinLabs to be Ordered:->Cell CountLabs to be Ordered:->Body Fluid Culture (w/Gram Stain, C\\T\\S)[facility] [place] : 1990 Sex: MFINAL REPORT Exam: Ultrasound guided thoracentesis Clinical History: Right-sided Pleural Effusion Rider Ticket Worker: Michelle Eric PA-C Supervising Physician: Austin Tee MD Consent: Benefits and risks were explained to the patient who gave consent to the procedure. Complication: None Immediate Procedure: The patient was placed in left lateral decubitusposition. The right posterior chest was prepped and draped in usual sterile fashion. 2% lidocaine was used as localanesthetic. Under ultrasound guidance, a thoracentesis catheter was inserted into the pleural cavity. Approximately 550 cc of cloudy yellow pleural fluid was aspirated. The catheter was removed. The specimen was sent to the laboratory for further analysis. The patient tolerated the procedure well without any adverse reaction. A STAT chest x-ray was ordered. The patient left the department in stable condition. Impression: Ultrasound guided right-sided thoracentesis. Signed: Austin Tee Verified Date/Time: 12/06/2019 13:05:38 Reading Location: [address] Ultrasound Reading Room Bette ctronically signed by: AUSTIN TEE MD on 12/06/2019 01:05 PMUS thoracentesis 2019-12-06 13:05:00Interface, External Ris In - 12/06/2019 1:08 PM CDTFINAL REPORT Exam: Ultrasound guided thoracentesis Clinical History: Right-sided Pleural Effusion Rider Ticket Worker: Michelle Eric PA-C Supervising Physician: Austin Tee MD Consent: Benefits and risks were explained to thepatient who gave consent to the procedure. Complication: None Immediate Procedure: The patient wasplaced in left lateral decubitusposition. The right posterior chest was prepped and draped in usual sterile fashion. 2% lidocaine was used as local anesthetic. Under ultrasound guidance, a thoracentesis catheter was inserted into the pleural cavity. Approximately 550 cc of cloudy yellow pleural fluid was aspirated. The catheter was removed. The specimen was sent to the laboratory for further analysis. The patient tolerated the procedure well without any adverse reaction. A STAT chest x-ray was ordered. The patient left the department in stable condition. Impression: Ultrasound guided right-sided thoracentesis. Signed: Austin Tee Verified Date/Time: 12/06/2019 13:05:38 Reading Location:[address] Ultrasound Reading Room [facility] W/PLT COUNT & AUTO [id number] 06:48:00 Test Item Value Reference Range Interpretation Comments WHITE BLOOD CELL COUNT (BEAKER) 7.6 K/ L 3.5-10.5 (test code = 775) RED BLOOD CELL COUNT (BEAKER) 3.02 M/ L 4.63-6.08 L (test code = 761) HEMOGLOBIN (BEAKER) (test code = 9.4 GM/DL 13.7-17.5 L 410) HEMATOCRIT (BEAKER) (test code = 28.8 % 40.1-51.0 L 411) MEAN CORPUSCULAR VOLUME (BEAKER) 95.4 fL 79.0-92.2 H (test code = 753) MEAN CORPUSCULAR HEMOGLOBIN 31.1 pg 25.7-32.2 (BEAKER) (test code = 751) MEAN CORPUSCULAR HEMOGLOBIN CONC 32.6 GM/DL 32.3-36.5 (BEAKER) (test code = 752) RED CELL DISTRIBUTION WIDTH 17.4 % 11.6-14.4 H (BEAKER) (test code = 412) PLATELET COUNT (BEAKER) (test 638 K/CU MM 150-450 H code = 756) MEAN PLATELET VOLUME (BEAKER) 10.1 fL 9.4-12.4 (test code = 754) NUCLEATED RED BLOOD CELLS 0 /100 WBC 0-0 (BEAKER) (test code = 413) NEUTROPHILS RELATIVE PERCENT 53 % (BEAKER) (test code = 429) LYMPHOCYTES RELATIVE PERCENT 19 % (BEAKER) (test code = 430) MONOCYTES RELATIVE PERCENT 12 % (BEAKER) (test code = 431) EOSINOPHILS RELATIVE PERCENT 14 % (BEAKER) (test code = 432) BASOPHILS RELATIVE PERCENT 1 % (BEAKER) (test code = 437) NEUTROPHILS ABSOLUTE COUNT 3.98 K/ L 1.78-5.38 (BEAKER) (test code = 670) LYMPHOCYTES ABSOLUTE COUNT 1.43 K/ L 1.32-3.57 (BEAKER) (test code = 414) MONOCYTES ABSOLUTE COUNT (BEAKER) 0.90 K/ L 0.30-0.82 H (test code = 415) EOSINOPHILS ABSOLUTE COUNT 1.09 K/ L 0.04-0.54 H (BEAKER) (test code = 416) BASOPHILS ABSOLUTE COUNT (BEAKER) 0.09 K/ L 0.01-0.08 H (test code = 417) IMMATURE GRANULOCYTES-RELATIVE 1 % 0-1 PERCENT (BEAKER) (test code = 2801) BASIC METABOLIC [id number] 06:48:00 Test Item Value Reference Range Interpretation Comments SODIUM (BEAKER) 138 meq/L 136-145 (test code = 381) POTASSIUM (BEAKER) 4.4 meq/L 3.5-5.1 (test code = 379) CHLORIDE (BEAKER) 107 meq/L 98-107 (test code = 382) CO2 (BEAKER) (test 27 meq/L 22-29 code = 355) BLOOD UREA NITROGEN 6 mg/dL 7-21 L (BEAKER) (test code = 354) CREATININE (BEAKER) 0.46 mg/dL 0.57-1.25 L (test code = 358) GLUCOSE RANDOM 85 mg/dL 70-105 (BEAKER) (test code = 652) CALCIUM (BEAKER) 7.5 mg/dL 8.4-10.2 L (test code = 697) EGFR (BEAKER) (test 215 mL/min/1.73 ESTIM ATED GFR IS code = 1092) sq m NOT ACCURATE CREATININE CLEARANCE IN PREDICTING GLOMERULAR FILTRATION RATE . ESTIMATED GFR I S NOT APPLICABLE FOR DIALYSIS PATIEN TS. Account Advisor ID - [id number] 06:39:00 Test Item Value Reference Range Interpretation Comments MAGNESIUM (BEAKER) (test code = 2.2 mg/dL 1.6-2.6 627) Account Advisor ID - [id number] 06:39:00 Test Item Value Reference Range Interpretation Comments PHOSPHORUS (BEAKER) (test code = 3.1 mg/dL 2.3-4.7 604) Account Advisor ID - EDASIPROTHROMBIN TIME/[id number] 06:17:00 Test Item Value Reference Range Interpretation Comments PROTIME (BEAKER) (test code = 14.2 seconds 11.9-14.2 759) INR (BEAKER) (test code = 370) 1.13 <=5.90 Effective 07/03/2018: PT Reference Range ChangeNew: 11.9-14.2 Previous: 11.7- 14.7RECOMMENDED COUMADIN/WARFARIN INR THERAPY RANGESSTANDARD DOSE: 2.0-3.0 Includes: PROPHYLAXIS for venous thrombosis, systemic embolization; TREATMENT for venous thrombosis and/or pulmonary embolus.HIGH RISK: Target INR is2.5-3.5 for patients wiht mechanical heart valves.POCT-GLUCOSE [id number] 23:39:00 Test Item Value Reference Range Interpretation Comments POC-GLUCOSE METER 88 mg/dL 70-110 : TESTED A T [facility] 6720 (BEAKER) (test code = [facility], 1538) [address]: Account Advisor/Techni romain ID = [id number] for JON NAVARRO Body fluid cell count with [id number] 21:03:00 Test Item Value Reference Range Interpretation Comments Appearance (test code = Slightly Cloudy Clear A 9335-1) Color (test code = 6824-7) Straw Colorless, Straw RBCs (test code = 13417-2) 170 <=1 /cu mm H Adjusted WBC Count (test 455 <=5 /cu mm H code = 48008-7) Lining Cells (test code = 5 <=1 /cu mm H 43346-4) % Segs (test code = 29273-0) 4 % % Lymphs (test code = 63 % 90558-6) % Monos (test code = 31 % 19806-1) % Eos (test code = 92371-6) 2 % % Baso (test code = 39072-3) 0 % Container Body Fluid (test EDTA Tube code = 2873) Lab Interpretation (test Abnormal code = 87260-2) [facility] HospitalBODY FLUID CE[facility] COUNT WITH [id number] 21:03:00 Test Item Value Reference Range Interpretation Comments APPEARANCE FLUID (BEAKER) Slightly Cloudy Clear A (test code = 510) COLOR FLUID (BEAKER) (test Straw Colorless, Straw code = 511) RBC FLUID (BEAKER) (test 170 /cu mm <=1 H code = 513) ADJUSTED WBC FLUID (BEAKER) 455 /cu mm <=5 H (test code = 1691) LINING CELLS (BEAKER) (test 5 /cu mm <=1 H code = 1590) NEUTROPHILS FLUID (BEAKER) 4 % (test code = 1656) LYMPHS FLUID (BEAKER) (test 63 % code = 488) MONO/MACROPHAGE FLUID 31 % (BEAKER) (test code = 489) EOSINOPHILS FLUID (BEAKER) 2 % (test code = 491) BASO FLUID (BEAKER) (test 0 % code = 492) CONTAINER BODY FLUID EDTA Tube (BEAKER) (test code = 2873) [id number] 20:01:00 Test Item Value Reference Range Interpretation Comments Lipase (test code = 3040-3) 10 U/L ABAD (test code = ABAD) Account Advisor ID - DB Lab Interpretation (test Normal code = 89834-1) [facility]LIPASE2020-[facility] 20:01:00 Test Item Value Reference Range Interpretation Comments LIPASE (BEAKER) (test code = 749) 10 U/L Account Advisor ID - DBHEMOGLOBIN AND [id number] 19:42:00 Test Item Value Reference Range Interpretation Comments HEMOGLOBIN (BEAKER) (test code = 10.2 GM/DL 13.7-17.5 L 410) HEMATOCRIT (BEAKER) (test code = 31.7 % 40.1-51.0 L 411) Account Advisor ID - [id number], CHEST, 1 VIEW, NON [id number] 19:34:00Reason for exam:->post right sided thoracentesisShould this be performed at the bedside?->Yes[facility] [place] : 1990 Sex: MFINAL REPORT RAD, CHEST, 1 VIEW, NON DEPT TECHNIQUE: Frontal view of thechest. INDICATION: post right sided thoracentesis. COMPARISON: 10/19/2019 FINDINGS/IMPRESSION: Lines/Tubes: None Lungs/pleura: Clear and well expanded. Possible small left pleural effusion, no evident pleural effusion on the right. No pneumothorax. Questionable small calcified pulmonary nodule projecting over the right upper lobe. Heart and Mediastinum: Unchanged. Soft Tissues and Bones: Metallic clipprojects over the left upper abdomen.. Signed: Sonal Le Verified Date/Time: 12/05/2019 19:34:19 Reading Location: [address] Transitional Reading Room XR chest 1 view portable / [id number] 19:34:00 Interface, External Ris In - 12/05/2019 7:37 PM CDTFINAL REPORT RAD, CHEST, 1 VIEW, NON DEPT TECHNIQUE: Frontal view of the chest. INDICATION: post right sided thoracentesis. COMPARISON: 10/19/2019 FINDINGS/IMPRESSION: Lines/Tubes: None Lungs/pleura: Clear and well expanded. Possible small left pleural effusion, no evident pleural effusion on the right. No pneumothorax. Questionable small calcified pulmonary nodule projecting over the right upper lobe. Heart and Mediastinum: Unchanged. Soft Tissues and Bones: Metallic clip projects over the left upper abdomen.. Signed: Sonal Leort Verified Date/Time: 12/05/2019 19:34:19 Reading Location: [address] Transitional [facility] [id number] 11:54:00 Test Item Value Reference Range Interpretation Comments POC-GLUCOSE METER 93 mg/dL 70-110 : Notified RN/MD: TESTED (BEAKER) (test code = AT [facility] 67[address] [facility] 1538) [facility], [facility] 30: Account Advisor/Techni romain ID = [id number] for JULIUS ARRIAZA CBC (Hemogram only)2019-12-05 10:52:00 Test Item Value Reference Range Interpretation Comments WBC (test code = 6690-2) 6.6 3.5- 10.5 K/L RBC (test code = 789-8) 3.11 4.63- 6.08 M/L L MCHC (test code = 786-4) 30.9 32.3- 36.5 GM/DL L Hematocrit (test code = 4544-3) 28.7 % 40.1-51 L MCV (test code = 787-2) 98.7 fL 79-92.2 H MCH (test code = 785-6) 30.5 pg 25.7-32.2 RDW (test code = 788-0) 17.8 % 11.6-14.4 H Platelets (test code = 777-3) 599 150- 450 K/CU MM H MPV (test code = 69951-9) 11.4 fL 9.4-12.4 nRBC (test code = 413) 1 0- 0 /100 WBC H Lab Interpretation (test code = Abnormal 35005-2) [facility] (HEMOGRAM ONLY)2019-12-05 10:52:00 Test Item Value Reference Range Interpretation Comments WHITE BLOOD CELL COUNT (BEAKER) 6.6 K/ L 3.5-10.5 (test code = 775) RED BLOOD CELL COUNT (BEAKER) 3.11 M/ L 4.63-6.08 L (test code = 761) HEMOGLOBIN (BEAKER) (test code = 9.5 GM/DL 13.7-17.5 L 410) HEMATOCRIT (BEAKER) (test code = 28.7 % 40.1-51.0 L 411) MEAN CORPUSCULAR VOLUME (BEAKER) 98.7 fL 79.0-92.2 H (test code = 753) MEAN CORPUSCULAR HEMOGLOBIN 30.5 pg 25.7-32.2 (BEAKER) (test code = 751) MEAN CORPUSCULAR HEMOGLOBIN CONC 30.9 GM/DL 32.3-36.5 L (BEAKER) (test code = 752) RED CELL DISTRIBUTION WIDTH 17.8 % 11.6-14.4 H (BEAKER) (test code = 412) PLATELET COUNT (BEAKER) (test 599 K/CU MM 150-450 H code = 756) MEAN PLATELET VOLUME (BEAKER) 11.4 fL 9.4-12.4 (test code = 754) NUCLEATED RED BLOOD CELLS 1 /100 WBC 0-0 H (BEAKER) (test code = 413) BASIC METABOLIC [id number] 07:38:00 Test Item Value Reference Range Interpretation Comments SODIUM (BEAKER) 141 meq/L 136-145 (test code = 381) POTASSIUM (BEAKER) 3.9 meq/L 3.5-5.1 (test code = 379) CHLORIDE (BEAKER) 106 meq/L 98-107 (test code = 382) CO2 (BEAKER) (test 27 meq/L 22-29 code = 355) BLOOD UREA NITROGEN 3 mg/dL 7-21 L (BEAKER) (test code = 354) CREATININE (BEAKER) 0.51 mg/dL 0.57-1.25 L (test code = 358) GLUCOSE RANDOM 96 mg/dL 70-105 (BEAKER) (test code = 652) CALCIUM (BEAKER) 7.5 mg/dL 8.4-10.2 L (test code = 697) EGFR (BEAKER) (test 191 mL/min/1.73 ESTIM ATED GFR IS code = 1092) sq m NOT ACCURATE CREATININE CLEARANCE IN PREDICTING GLOMERULAR FILTRATION RATE . ESTIMATED GFR I S NOT APPLICABLE FOR DIALYSIS PATIEN TS. Account Advisor ID - [id number] 07:31:00 Test Item Value Reference Range Interpretation Comments MAGNESIUM (BEAKER) (test code = 1.7 mg/dL 1.6-2.6 627) Account Advisor ID - [id number] 07:31:00 Test Item Value Reference Range Interpretation Comments PHOSPHORUS (BEAKER) (test code = 4.0 mg/dL 2.3-4.7 604) Account Advisor ID - EDASIPROTHROMBIN TIME/[id number] 06:20:00 Test Item Value Reference Range Interpretation Comments PROTIME (BEAKER) (test code = 15.1 seconds 11.9-14.2 H 759) INR (BEAKER) (test code = 370) 1.22 <=5.90 Effective 07/03/2018: PT Reference Range ChangeNew: 11.9-14.2 Previous: 11.7- 14.7RECOMMENDED COUMADIN/WARFARIN INR THERAPY RANGESSTANDARD DOSE: 2.0-3.0 Includes: PROPHYLAXIS for venous thrombosis, systemic embolization; TREATMENT for venous thrombosis and/or pulmonary embolus.HIGH RISK: Target INR is2.5-3.5 for patients wiht mechanical heart valves.CBC W/PLT COUNT & AUTO [id number] 06:01:00 Test Item Value Reference Range Interpretation Comments WHITE BLOOD CELL COUNT (BEAKER) 8.3 K/ L 3.5-10.5 (test code = 775) RED BLOOD CELL COUNT (BEAKER) 3.24 M/ L 4.63-6.08 L (test code = 761) HEMOGLOBIN (BEAKER) (test code = 10.1 GM/DL 13.7-17.5 L 410) HEMATOCRIT (BEAKER) (test code = 30.9 % 40.1-51.0 L 411) MEAN CORPUSCULAR VOLUME (BEAKER) 95.4 fL 79.0-92.2 H (test code = 753) MEAN CORPUSCULAR HEMOGLOBIN 31.2 pg 25.7-32.2 (BEAKER) (test code = 751) MEAN CORPUSCULAR HEMOGLOBIN CONC 32.7 GM/DL 32.3-36.5 (BEAKER) (test code = 752) RED CELL DISTRIBUTION WIDTH 17.7 % 11.6-14.4 H (BEAKER) (test code = 412) PLATELET COUNT (BEAKER) (test 636 K/CU MM 150-450 H code = 756) MEAN PLATELET VOLUME (BEAKER) 10.1 fL 9.4-12.4 (test code = 754) NUCLEATED RED BLOOD CELLS 0 /100 WBC 0-0 (BEAKER) (test code = 413) NEUTROPHILS RELATIVE PERCENT 49 % (BEAKER) (test code = 429) LYMPHOCYTES RELATIVE PERCENT 19 % (BEAKER) (test code = 430) MONOCYTES RELATIVE PERCENT 11 % (BEAKER) (test code = 431) EOSINOPHILS RELATIVE PERCENT 20 % (BEAKER) (test code = 432) BASOPHILS RELATIVE PERCENT 1 % (BEAKER) (test code = 437) NEUTROPHILS ABSOLUTE COUNT 4.06 K/ L 1.78-5.38 (BEAKER) (test code = 670) LYMPHOCYTES ABSOLUTE COUNT 1.55 K/ L 1.32-3.57 (BEAKER) (test code = 414) MONOCYTES ABSOLUTE COUNT (BEAKER) 0.91 K/ L 0.30-0.82 H (test code = 415) EOSINOPHILS ABSOLUTE COUNT 1.66 K/ L 0.04-0.54 H (BEAKER) (test code = 416) BASOPHILS ABSOLUTE COUNT (BEAKER) 0.10 K/ L 0.01-0.08 H (test code = 417) IMMATURE GRANULOCYTES-RELATIVE 1 % 0-1 PERCENT (BEAKER) (test code = 2801) POCT-GLUCOSE [id number] 05:38:00 Test Item Value Reference Range Interpretation Comments POC-GLUCOSE METER 91 mg/dL 70-110 : TESTED A T [facility] 6720 (BEAKER) (test code = [facility], 1538) [id number]: Account Advisor/Techni romain ID = [id number] for BIYO , [place] POCT-GLUCOSE [id number] 18:00:00 Test Item Value Reference Range Interpretation Comments POC-GLUCOSE METER 114 mg/dL 70-110 H : TESTED A T [facility] 6720 (BEAKER) (test code = [facility], 1538) [id number]: Account Advisor/Techni romain ID = [id number] for So moe, [place], [id number] 14:36:00Unlisted Reason for Exam - Click Yes and Enter Reason Below->NoDuodenal ulcer s/p epi/cautery, now with abdominal pain, rule out perforationKA[facility]ER [facility] [place] : 1990 Sex: MFINAL REPORT CT of the abdomen and pelvis, with contrast Clinical History: Abdominal pain, acute, nonlocalized Technique: CT of the abdomen and pelvis is performed with intravenous contrast administration. This exam was performed according to our departmental dose optimization program which includes automated exposure control, adjustment of the mA and/or kV according topatient's size and/or use of iterative reconstructive technique. Comparison Film: October 16, 2019 and July 13, 2018, June 05, 2018 Discussion: There is a small left effusion, and a moderate to large right effusion, with relaxation atelectasis of both lower lobes. No liver lesion is identified. No biliary ductal dilatation. Gallbladder is either contracted, or absent. Proximal main portal vein is narrowed, similar to the prior exam. There is atrophy of the pancreatic parenchyma. Again noted is a rind of soft tissue thickening around the pancreatic parenchyma which may reflect granulation tissue dueto prior pancreatitis, correlate clinically to exclude superimposed acute inflammation. Spleen has been. There is a tiny ring enhancing fluid collection that extends from the pancreatic tail to the splenic bed, possibly a pseudocyst versus postsurgical seroma. There is marked gastric fold thickening with apparent submucosal edema. The descending portion of the duodenum also appears walled. No adjacent fluid collection to suggest perforation. No bowel obstruction. The right and transverse colon alsoappears mildly thick walled versus underdistended. Normal appendix. In the pelvis, bladder, prostateand seminal vesicles are unremarkable. There is trace ascites. No free air, or lymphadenopathy. Bonystructures are intact. Impression: Status post splenectomy. A tiny rim-enhancing fluid collection extending from the pancreatic tail to the splenic bed may reflect pseudocysts, or seroma. Pancreatic atrophy. Rim of peripancreatic soft tissue thickening probably reflects granulation tissue tissue related to prior pancreatitis, correlate clinically to exclude acute inflammation. Small left, moderate tolarge right pleural effusions. Trace ascites. Prominent gastric fold thickening with submucosal edema; there is also wall thickening of the descending duodenum. Additionally, question mild wall thickening versus underdistention of the right and transverse colon. Signed: Ramona Miller MDReport Verified Date/Time: 12/04/2019 14:36:28 Reading Location: [facility] C013X [facility] Consult Reading Room CT abdomen/pelvis with IV [id number] 14:36:00 Interface, External Ris In - 12/04/2019 2:[address] of the abdomen and pelvis, with contrast Clinical History: Abdominal pain, acute, nonlocalized Technique: CTof the abdomen and pelvis is performed with intravenous contrast administration. This exam was performed according to our departmental dose optimization program which includes automated exposure control, adjustment of the mA and/or kV according to patient's size and/or use of iterative reconstructivetechnique. Comparison Film: October 16, 2019 and July 13, 2018, June 05, 2018 Discussion: There is asmall left effusion, and a moderate to large right effusion, with relaxation atelectasis of both lowe r lobes. No liver lesion is identified. No biliary ductal dilatation. Gallbladder is either contracted, or absent. Proximal main portal vein is narrowed, similar to the prior exam. There is atrophy of the pancreatic parenchyma. Again noted is a rind of soft tissue thickening around the pancreatic parenchyma which may reflect granulation tissue due to prior pancreatitis, correlate clinically to exclude superimposed acute inflammation. Spleen has been. There is a tiny ring enhancing fluid collection that extends from the pancreatic tail to the splenic bed, possibly a pseudocyst versus postsurgical seroma. There is marked gastric fold thickening with apparent submucosal edema. The descending portionof the duodenum also appears walled. No adjacent fluid collection to suggest perforation. No bowel obstruction. The right and transverse colon also appears mildly thick walled versus underdistended. Normal appendix. In the pelvis, bladder, prostate and seminal vesicles are unremarkable. There is traceascites. No free air, or lymphadenopathy. Bony structures are intact. Impression: Status post splenec ritchie. A tiny rim-enhancing fluid collection extending from the pancreatic tail to the splenic bed may reflect pseudocysts, or seroma. Pancreatic atrophy. Rim of peripancreatic soft tissue thickening probably reflects granulation tissue tissue related to prior pancreatitis, correlate clinically to exclude acute inflammation. Small left, moderate to large right pleural effusions. Trace ascites. Prominent gastric fold thickening with submucosal edema; there is also wall thickening of the descending duodenum. Additionally, question mild wall thickening versus underdistention of the right and transversecolon. Signed: Ramona Miller Verified Date/Time: 12/04/2019 14:36:28 Reading Location: [facility] B1 C013X [facility] Consult Reading Room [facility] 2019-12-04 12:42:00 Test Item Value Reference Range Interpretation Comments HEMOGLOBIN (BEAKER) (test code = 9.5 GM/DL 13.7-17.5 L 410) HEMATOCRIT (BEAKER) (test code = 28.7 % 40.1-51.0 L 411) Account Advisor ID - [id number]-GLUCOSE [id number] 12:07:00 Test Item Value Reference Range Interpretation Comments POC-GLUCOSE METER 73 mg/dL 70-110 : TESTED A T [facility] 6720 (BEAKER) (test code = [facility], 1538) [id number]: Account Advisor/Techni romain ID = [id number] for Viraj De La Vega BASIC METABOLIC [id number] 06:47:00 Test Item Value Reference Range Interpretation Comments SODIUM (BEAKER) 143 meq/L 136-145 (test code = 381) POTASSIUM (BEAKER) 3.4 meq/L 3.5-5.1 L (test code = 379) CHLORIDE (BEAKER) 108 meq/L 98-107 H (test code = 382) CO2 (BEAKER) (test 27 meq/L 22-29 code = 355) BLOOD UREA NITROGEN 5 mg/dL 7-21 L (BEAKER) (test code = 354) CREATININE (BEAKER) 0.55 mg/dL 0.57-1.25 L (test code = 358) GLUCOSE RANDOM 134 mg/dL 70-105 H (BEAKER) (test code = 652) CALCIUM (BEAKER) 7.6 mg/dL 8.4-10.2 L (test code = 697) EGFR (BEAKER) (test 175 mL/min/1.73 ESTIM ATED GFR IS code = 1092) sq m NOT ACCURATE CREATININE CLEARANCE IN PREDICTING GLOMERULAR FILTRATION RATE . ESTIMATED GFR I S NOT APPLICABLE FOR DIALYSIS PATIEN TS. Account Advisor ID - SOTERO MPOCT-GLUCOSE [id number] 05:56:00 Test Item Value Reference Range Interpretation Comments POC-GLUCOSE METER 114 mg/dL 70-110 H : TESTED A T [facility] 6720 (BEAKER) (test code = [facility], 153) 75779: Account Advisor/Techni romain ID = [id number] for BERTA CASEY PROTHROMBIN [id number] 05:04:00 Test Item Value Reference Range Interpretation Comments PROTIME (BEAKER) (test code = 15.8 seconds 11.9-14.2 H 759) INR (BEAKER) (test code = 370) 1.30 <=5.90 Effective 07/03/2018: PT Reference Range ChangeNew: 11.9-14.2 Previous: 11.7- 14.7RECOMMENDED COUMADIN/WARFARIN INR THERAPY RANGESSTANDARD DOSE: 2.0-3.0 Includes: PROPHYLAXIS for venous thrombosis, systemic embolization; TREATMENT for venous thrombosis and/or pulmonary embolus.HIGH RISK: Target INR is2.5-3.5 for patients wiht mechanical heart valves.CBC W/PLT COUNT & AUTO [id number] 04:50:00 Test Item Value Reference Range Interpretation Comments WHITE BLOOD CELL COUNT (BEAKER) 7.8 K/ L 3.5-10.5 (test code = 775) RED BLOOD CELL COUNT (BEAKER) 2.79 M/ L 4.63-6.08 L (test code = 761) HEMOGLOBIN (BEAKER) (test code = 8.6 GM/DL 13.7-17.5 L 410) HEMATOCRIT (BEAKER) (test code = 26.1 % 40.1-51.0 L 411) MEAN CORPUSCULAR VOLUME (BEAKER) 93.5 fL 79.0-92.2 H (test code = 753) MEAN CORPUSCULAR HEMOGLOBIN 30.8 pg 25.7-32.2 (BEAKER) (test code = 751) MEAN CORPUSCULAR HEMOGLOBIN CONC 33.0 GM/DL 32.3-36.5 (BEAKER) (test code = 752) RED CELL DISTRIBUTION WIDTH 17.2 % 11.6-14.4 H (BEAKER) (test code = 412) PLATELET COUNT (BEAKER) (test 591 K/CU MM 150-450 H code = 756) MEAN PLATELET VOLUME (BEAKER) 10.2 fL 9.4-12.4 (test code = 754) NUCLEATED RED BLOOD CELLS 0 /100 WBC 0-0 (BEAKER) (test code = 413) NEUTROPHILS RELATIVE PERCENT 45 % (BEAKER) (test code = 429) LYMPHOCYTES RELATIVE PERCENT 24 % (BEAKER) (test code = 430) MONOCYTES RELATIVE PERCENT 11 % (BEAKER) (test code = 431) EOSINOPHILS RELATIVE PERCENT 18 % (BEAKER) (test code = 432) BASOPHILS RELATIVE PERCENT 1 % (BEAKER) (test code = 437) NEUTROPHILS ABSOLUTE COUNT 3.52 K/ L 1.78-5.38 (BEAKER) (test code = 670) LYMPHOCYTES ABSOLUTE COUNT 1.85 K/ L 1.32-3.57 (BEAKER) (test code = 414) MONOCYTES ABSOLUTE COUNT (BEAKER) 0.88 K/ L 0.30-0.82 H (test code = 415) EOSINOPHILS ABSOLUTE COUNT 1.39 K/ L 0.04-0.54 H (BEAKER) (test code = 416) BASOPHILS ABSOLUTE COUNT (BEAKER) 0.10 K/ L 0.01-0.08 H (test code = 417) IMMATURE GRANULOCYTES-RELATIVE 0 % 0-1 PERCENT (BEAKER) (test code = 2801) HEMOGLOBIN AND [id number] 00:35:00 Test Item Value Reference Range Interpretation Comments HEMOGLOBIN (BEAKER) (test code = 8.9 GM/DL 13.7-17.5 L 410) HEMATOCRIT (BEAKER) (test code = 26.5 % 40.1-51.0 L 411) Account Advisor ID - [id number] Leuko-Red [id number] 23:54:00 Test Item Value Reference Range Interpretation Comments CROSSMATCH (test code = 2264) COMPATIBLE Unit ABO (test code = A Pos 1171322) UNIT NUMBER (test code = [id number] 934-0) Status (test code = 0639879) [facility] Product (test code RED BLOOD CELLS = 2263) PRODUCT CODE (test code = I5000Y28 933-2) [facility] [id number] 23:35:00 Test Item Value Reference Range Interpretation Comments POC-GLUCOSE METER 106 mg/dL 70-110 : TESTED A T [facility] 6720 (BEAKER) (test code = [facility] [place], 1538) [address]: Account Advisor/Techni romain ID = [id number] for BERTA CASEY HEMOGLOBIN AND [id number] 18:31:00 Test Item Value Reference Range Interpretation Comments HEMOGLOBIN (BEAKER) (test code = 9.5 GM/DL 13.7-17.5 L 410) HEMATOCRIT (BEAKER) (test code = 28.7 % 40.1-51.0 L 411) Account Advisor ID - [id number]-GLUCOSE [id number] 17:46:00 Test Item Value Reference Range Interpretation Comments POC-GLUCOSE METER 117 mg/dL 70-110 H : TESTED A T [facility] 6720 (BEAKER) (test code = [facility], 153) 71112: Account Advisor/Techni romain ID = [id number] for So moe, Giavanna HEMOGLOBIN AND [id number] 12:04:00 Test Item Value Reference Range Interpretation Comments HEMOGLOBIN (BEAKER) (test code = 8.7 GM/DL 13.7-17.5 L 410) HEMATOCRIT (BEAKER) (test code = 26.0 % 40.1-51.0 L 411) Account Advisor ID - [id number]-GLUCOSE [id number] 11:58:00 Test Item Value Reference Range Interpretation Comments POC-GLUCOSE METER 132 mg/dL 70-110 H : TESTED A T [facility] 6720 (BEAKER) (test code = [facility], 153) 71585: Account Advisor/Techni romain ID = [id number] for So moe, Giavanna POCT-GLUCOSE [id number] 06:22:00 Test Item Value Reference Range Interpretation Comments POC-GLUCOSE METER 140 mg/dL 70-110 H : TESTED A T [facility] 6720 (BEAKER) (test code = [facility], 153) 02109: Account Advisor/Techni romain ID = [id number] for [place] LLIAMS, CONSETTA BASIC METABOLIC [id number] 05:07:00 Test Item Value Reference Range Interpretation Comments [...] (test code = 697) EGFR (BEAKER) (test 161 mL/min/1.73 ESTIM ATED GFR IS code = 1092) sq m NOT ACCURATE CREATININE CLEARANCE IN PREDICTING GLOMERULAR FILTRATION RATE . ESTIMATED GFR I S NOT APPLICABLE FOR DIALYSIS PATIEN TS. Account Advisor ID - PIAYA LCBC W/PLT COUNT & AUTO [id number] 04:53:00 Test Item Value Reference Range Interpretation Comments WHITE BLOOD CELL COUNT (BEAKER) 8.8 K/ L 3.5-10.5 (test code = 775) RED BLOOD CELL COUNT (BEAKER) 2.85 M/ L 4.63-6.08 L (test code = 761) HEMOGLOBIN (BEAKER) (test code = 8.9 GM/DL 13.7-17.5 L 410) HEMATOCRIT (BEAKER) (test code = 26.0 % 40.1-51.0 L 411) MEAN CORPUSCULAR VOLUME (BEAKER) 91.2 fL 79.0-92.2 (test code = 753) MEAN CORPUSCULAR HEMOGLOBIN 31.2 pg 25.7-32.2 (BEAKER) (test code = 751) MEAN CORPUSCULAR HEMOGLOBIN CONC 34.2 GM/DL 32.3-36.5 (BEAKER) (test code = 752) RED CELL DISTRIBUTION WIDTH 17.2 % 11.6-14.4 H (BEAKER) (test code = 412) PLATELET COUNT (BEAKER) (test 586 K/CU MM 150-450 H code = 756) MEAN PLATELET VOLUME (BEAKER) 9.9 fL 9.4-12.4 (test code = 754) NUCLEATED RED BLOOD CELLS 0 /100 WBC 0-0 (BEAKER) (test code = 413) NEUTROPHILS RELATIVE PERCENT 51 % (BEAKER) (test code = 429) LYMPHOCYTES RELATIVE PERCENT 23 % (BEAKER) (test code = 430) MONOCYTES RELATIVE PERCENT 8 % (BEAKER) (test code = 431) EOSINOPHILS RELATIVE PERCENT 16 % (BEAKER) (test code = 432) BASOPHILS RELATIVE PERCENT 2 % (BEAKER) (test code = 437) NEUTROPHILS ABSOLUTE COUNT 4.54 K/ L 1.78-5.38 (BEAKER) (test code = 670) LYMPHOCYTES ABSOLUTE COUNT 2.01 K/ L 1.32-3.57 (BEAKER) (test code = 414) MONOCYTES ABSOLUTE COUNT (BEAKER) 0.68 K/ L 0.30-0.82 (test code = 415) EOSINOPHILS ABSOLUTE COUNT 1.39 K/ L 0.04-0.54 H (BEAKER) (test code = 416) BASOPHILS ABSOLUTE COUNT (BEAKER) 0.13 K/ L 0.01-0.08 H (test code = 417) IMMATURE GRANULOCYTES-RELATIVE 1 % 0-1 PERCENT (BEAKER) (test code = 2801) PROTHROMBIN TIME/[id number] 04:44:00 Test Item Value Reference Range Interpretation Comments PROTIME (BEAKER) (test code = 16.1 seconds 11.9-14.2 H 759) INR (BEAKER) (test code = 370) 1.33 <=5.90 Effective 07/03/2018: PT Reference Range ChangeNew: 11.9-14.2 Previous: 11.7- 14.7RECOMMENDED COUMADIN/WARFARIN INR THERAPY RANGESSTANDARD DOSE: 2.0-3.0 Includes: PROPHYLAXIS for venous thrombosis, systemic embolization; TREATMENT for venous thrombosis and/or pulmonary embolus.HIGH RISK: Target INR is2.5-3.5 for patients wiht mechanical heart valves.U/S, ABDOMINAL, WITH [id number] 01:27:00Reason for exam:->evaluate splenic vein, SMV, portal vein occlusion [facility] [place] [facility] 1990 Sex: MFINAL REPORT History: Upper GI bleed, concern for portal venous occlusion Abdominal ultrasound dated 12/02/2019 Comparison: 07/28/2018 Comment: Real-time transabdominal ultrasound of the abdomen was performed. Liver: 14.5 cm , normal. Normal echogenicity. No focal lesions. Gallbladder: Absent. Biliary tree: No intrahepatic ductal dilatation. CBD: 4 mm. MPV: 9 mm Spleen: Absent. Pancreas: Obscured by bowel gas Right kidney: 9.0 x 4.6 x 4.2 cm. Normal echogenicity.Left kidney: 10.0 x 4.3 x 4.3 cm. Normal echogenicity. No ascites is present in the abdomen. There is a right pleural effusion. Real-time Webster scale, color and spectral doppler ultrasound of the abdomen was performed to evaluate visceral blood flow. Main portal vein measures 0.9 cm in diameter. There is hepatopetal flow in the main portal vein with velocity 37.6 cm/sec. The right and left intrahepatic portal veins are patent with hepatopetal flow. The splenic vein is not visualized. Proper hepatic artery,right hepatic artery, and left hepatic artery are patent with resistive indices 0.5, 0.5, and 0.5 res pectively. IVC, Hepatic venous confluence, right HV, middle HV and left HV are patent with appropriate flow. The visualized abdominal aorta is normal in caliber. Impression: Previous cholecystectomy and splenectomy. The splenic vein is nonvisualized, probably secondary to previous splenectomy. The abdominal Doppler evaluation is otherwise unremarkable. Right pleural effusion. Signed: Rosalia Golden MDReport Verified Date/Time: 12/03/2019 01:27:24 US abdominal with [id number] 01:27:00Interface, External Ris In - 12/03/2019 1:29 AM CDTFINAL REPORT History: Upper GI bleed, concern for portal venous occlusion Abdominal ultrasound dated 12/02/2019 Comparison: 07/28/2018 Comment: Real-time transabdominal ultrasound of the abdomen was performed. Liver: 14.5 cm , normal. Normal echogenicity. No focal lesions. Gallbladder: Absent. Biliary tree: No intrahepatic ductal dilatation. CBD: 4 mm. MPV: 9 mm Spleen: Absent. Pancreas: Obscured by bowel gas Right kidney:9.0 x 4.6 x 4.2 cm. Normal echogenicity.Left kidney: 10.0 x 4.3 x 4.3 cm. Normal echogenicity. No ascites is present in the abdomen. There is a right pleural effusion. Real-time Webster scale, color and spectral doppler ultrasound of the abdomen was performed to evaluate visceral blood flow. Main portal vein measures 0.9 cm in diameter. There is hepatopetal flow in the main portal vein with velocity 37.6 cm/sec. The right and left intrahepatic portal veins are patent with hepatopetal flow. The splenicvein is not visualized. Proper hepatic artery, right hepatic artery, and left hepatic artery are patent with resistive indices 0.5, 0.5, and 0.5 respectively. IVC, Hepatic venous confluence, right HV, middle HV and left HV are patent with appropriate flow. The visualized abdominal aorta is normal in caliber. Impression: Previous cholecystectomy and splenectomy. The splenic vein is nonvisualized, probably secondary to previous splenectomy. The abdominal Doppler evaluation is otherwise unremarkable.Right pleural effusion. Signed: Rosalia Golden [facility] Verified Date/Time: 12/03/2019 01:27:24 [facility]HEMOGLOB[facility] AND [id number] 01:05:00 Test Item Value Reference Range Interpretation Comments HEMOGLOBIN (BEAKER) (test code = 8.9 GM/DL 13.7-17.5 L 410) HEMATOCRIT (BEAKER) (test code = 26.3 % 40.1-51.0 L 411) Account Advisor ID - [id number]-GLUCOSE [id number] 23:38:00 Test Item Value Reference Range Interpretation Comments POC-GLUCOSE METER 109 mg/dL 70-110 : [facility] ([facility] (test code = [facility] [place], 1538) [address]58[address]: Account Advisor/Techni romain ID = [id number] for BERTA CASEY, [id number] 20:43:00 Test Item Value Reference Range Interpretation Comments ABO Grouping (test code = 2588) A Rh Factor (test code = 2589) POS [facility] HospitalType and screen, [id number] 20:43:00 Test Item Value Reference Range Interpretation Comments Ab Scrn (test code = 890-4) NEGATIVE [facility]Asymptomatic ONLY[facility]2019-12-02 20:25:00 Test Item Value Reference Range Interpretation Comments SARS-COV2/RT-PCR Negative Not Detected, (test code = Negative, See 47757-9) external report for linked test SARS-COV-2 [facility] ERYN PERFORMING LAB (test code = 29859-2) ABAD (test code = Negative result for [...] of the Act. Fact Sheet for Healthcare Providers:https://www.ShowKit.BrightLine/sites/default/f jcarlos/product/documents/F act_Sheet_HC_Providers_L fml_TOBA-SgE-5.pdf Fact Sheet for Healthcare Patients:https://www.[employer].com/sites/default/fi les/product/documents/Fa ct_Sheet_Patients_Lyra_S ARS-CoV-2.pdf Performing Laboratory:[facility] [place] [address] [facility] (HS & REF LABS)2019-12-02 20:25:00 Test Item Value Reference Range Interpretation Comments SARS-COV2/RT-PCR (test Negative Not Detected, Negative, code = 7446643) See external report for linked test SARS-COV-2 PERFORMING LAB [facility] ERYN (test code = 7710853) Negative result for this test determines that [...] a nasopharyngeal swab specimen collected from individuals susp ected of COVID-19 by their healthcare provider.This test [...] 564(g) of the Act.Fact Sheet for Healthcare Providers:https://www.Vinylmint.BrightLine/sites/default/files/product/documents/Fact_Shee c_CI_Uoorvvogc_Prhm_AMKT-MrL-5.pdfFact Sheet for Healthcare Patients:https://www.[employer]inylm[employer].com/sites/default/files/product/ documents/Nbsr_Rhurs_Sekglnlq_Tevo_IOKS-ZxJ-3.pdfPerforming Laboratory:[facility], [place] [address]TUPETNXQKH AND [id number] 18:29:00 Test Item Value Reference Range Interpretation Comments HEMOGLOBIN (BEAKER) (test code = 6.7 GM/DL 13.7-17.5 L 410) HEMATOCRIT (BEAKER) (test code = 20.1 % 40.1-51.0 L 411) Account Advisor ID - 6000POCT-GLUCOSE [id number] 17:35:00 Test Item Value Reference Range Interpretation Comments POC-GLUCOSE METER 124 mg/dL 70-110 H : TESTED A T [facility] 6720 (BEAKER) (test code = [facility], 1538) 852[address]: Account Advisor/Techni romain ID = [id number] for AL ONSO MENSAH, VALERIA POCT-GLUCOSE [id number] 12:32:00 Test Item Value Reference Range Interpretation Comments POC-GLUCOSE METER 76 mg/dL 70-110 : TESTED A T [facility] 6720 (BEAKER) (test code = [facility], 1538) 932[address]: Account Advisor/Techni romain ID = [id number] for JJ SO MENSAH, VALERIA HEMOGLOBIN AND [id number] 12:31:00 Test Item Value Reference Range Interpretation Comments HEMOGLOBIN (BEAKER) (test code = 7.3 GM/DL 13.7-17.5 L 410) HEMATOCRIT (BEAKER) (test code = 22.1 % 40.1-51.0 L 411) Account Advisor ID - [id number] W/PLT COUNT & AUTO [id number] 06:28:00 Test Item Value Reference Range Interpretation Comments WHITE BLOOD CELL COUNT (BEAKER) 9.5 K/ L 3.5-10.5 (test code = 775) RED BLOOD CELL COUNT (BEAKER) 2.45 M/ L 4.63-6.08 L (test code = 761) HEMOGLOBIN (BEAKER) (test code = 7.6 GM/DL 13.7-17.5 L 410) HEMATOCRIT (BEAKER) (test code = 22.1 % 40.1-51.0 L 411) MEAN CORPUSCULAR VOLUME (BEAKER) 90.2 fL 79.0-92.2 (test code = 753) MEAN CORPUSCULAR HEMOGLOBIN 31.0 pg 25.7-32.2 (BEAKER) (test code = 751) MEAN CORPUSCULAR HEMOGLOBIN CONC 34.4 GM/DL 32.3-36.5 (BEAKER) (test code = 752) RED CELL DISTRIBUTION WIDTH 17.9 % 11.6-14.4 H (BEAKER) (test code = 412) PLATELET COUNT (BEAKER) (test 533 K/CU MM 150-450 H code = 756) MEAN PLATELET VOLUME (BEAKER) 10.0 fL 9.4-12.4 (test code = 754) NUCLEATED RED BLOOD CELLS 0 /100 WBC 0-0 (BEAKER) (test code = 413) NEUTROPHILS RELATIVE PERCENT 52 % (BEAKER) (test code = 429) LYMPHOCYTES RELATIVE PERCENT 32 % (BEAKER) (test code = 430) MONOCYTES RELATIVE PERCENT 9 % (BEAKER) (test code = 431) EOSINOPHILS RELATIVE PERCENT 6 % (BEAKER) (test code = 432) BASOPHILS RELATIVE PERCENT 1 % (BEAKER) (test code = 437) NEUTROPHILS ABSOLUTE COUNT 4.90 K/ L 1.78-5.38 (BEAKER) (test code = 670) LYMPHOCYTES ABSOLUTE COUNT 2.99 K/ L 1.32-3.57 (BEAKER) (test code = 414) MONOCYTES ABSOLUTE COUNT (BEAKER) 0.85 K/ L 0.30-0.82 H (test code = 415) EOSINOPHILS ABSOLUTE COUNT 0.54 K/ L 0.04-0.54 (BEAKER) (test code = 416) BASOPHILS ABSOLUTE COUNT (BEAKER) 0.13 K/ L 0.01-0.08 H (test code = 417) IMMATURE GRANULOCYTES-RELATIVE 1 % 0-1 PERCENT (BEAKER) (test code = 2801) BASIC METABOLIC [id number] 06:19:00 Test Item Value Reference Range Interpretation Comments SODIUM (BEAKER) 137 meq/L 136-145 (test code = 381) POTASSIUM (BEAKER) 4.3 meq/L 3.5-5.1 (test code = 379) CHLORIDE (BEAKER) 106 meq/L 98-107 (test code = 382) CO2 (BEAKER) (test 28 meq/L 22-29 code = 355) BLOOD UREA NITROGEN 23 mg/dL 7-21 H (BEAKER) (test code = 354) CREATININE (BEAKER) 0.60 mg/dL 0.57-1.25 (test code = 358) GLUCOSE RANDOM 80 mg/dL 70-105 (BEAKER) (test code = 652) CALCIUM (BEAKER) 7.3 mg/dL 8.4-10.2 L (test code = 697) EGFR (BEAKER) (test 158 mL/min/1.73 ESTIM ATED GFR IS code = 1092) sq m NOT ACCURATE CREATININE CLEARANCE IN PREDICTING GLOMERULAR FILTRATION RATE . ESTIMATED GFR I S NOT APPLICABLE FOR DIALYSIS PATIEN TS. Account Advisor ID - PIAYA LPROTHROMBIN TIME/[id number] 06:03:00 Test Item Value Reference Range Interpretation Comments PROTIME (BEAKER) (test code = 17.1 seconds 11.9-14.2 H 759) INR (BEAKER) (test code = 370) 1.43 <=5.90 Effective 07/03/2018: PT Reference Range ChangeNew: 11.9-14.2 Previous: 11.7- 14.7RECOMMENDED COUMADIN/WARFARIN INR THERAPY RANGESSTANDARD DOSE: 2.0-3.0 Includes: PROPHYLAXIS for venous thrombosis, systemic embolization; TREATMENT for venous thrombosis and/or pulmonary embolus.HIGH RISK: Target INR is2.5-3.5 for patients wiht mechanical heart valves.[id number] 00:06:00 Test Item Value Reference Range Interpretation Comments LIPASE (BEAKER) (test code = 749) 4 U/L 8-78 L Account Advisor ID - PIAYA LHepatic function [id number] 23:45:00 Test Item Value Reference Range Interpretation Comments Protein, Total (test code 3.8 6.0- 8.3 gm/dL L = 2885-2) Albumin (test code = 1.6 g/dL 3.5-5 L 09127-3) Total Bilirubin (test code 0.4 mg/dL 0.2-1.2 = 1975-2) Bilirubin, Direct (test 0.3 mg/dL 0.1-0.5 code = 1968-7) Alkaline Phosphatase (test 108 U/L 40-150 code = 6768-6) AST (test code = 1920-8) 11 U/L 5-34 ALT (test code = 1742-6) <6 6-55 L ABAD (test code = ABAD) Account Advisor ID - PIARI L Lab Interpretation (test Abnormal code = 08288-0) [facility] METABOLIC [id number] 23:45:00 Test Item Value Reference Range Interpretation Comments SODIUM (BEAKER) 137 meq/L 136-145 (test code = 381) POTASSIUM (BEAKER) 4.6 meq/L 3.5-5.1 (test code = 379) CHLORIDE (BEAKER) 106 meq/L 98-107 (test code = 382) CO2 (BEAKER) (test 25 meq/L 22-29 code = 355) BLOOD UREA NITROGEN 26 mg/dL 7-21 H (BEAKER) (test code = 354) CREATININE (BEAKER) 0.59 mg/dL 0.57-1.25 (test code = 358) GLUCOSE RANDOM 89 mg/dL 70-105 (BEAKER) (test code = 652) CALCIUM (BEAKER) 7.6 mg/dL 8.4-10.2 L (test code = 697) EGFR (BEAKER) (test 161 mL/min/1.73 ESTIM ATED GFR IS code = 1092) sq m NOT ACCURATE CREATININE CLEARANCE IN PREDICTING GLOMERULAR FILTRATION RATE . ESTIMATED GFR I S NOT APPLICABLE FOR DIALYSIS PATIEN TS. Account Advisor ID - PIAYA LHEPATIC FUNCTION [id number] 23:45:00 Test Item Value Reference Range Interpretation Comments TOTAL PROTEIN (BEAKER) (test code = 3.8 gm/dL 6.0-8.3 L 770) ALBUMIN (BEAKER) (test code = 1145) 1.6 g/dL 3.5-5.0 L BILIRUBIN TOTAL (BEAKER) (test code 0.4 mg/dL 0.2-1.2 = 377) BILIRUBIN DIRECT (BEAKER) (test 0.3 mg/dL 0.1-0.5 code = 706) ALKALINE PHOSPHATASE (BEAKER) (test 108 U/L 40-150 code = 346) AST (SGOT) (BEAKER) (test code = 11 U/L 5-34 353) ALT (SGPT) (BEAKER) (test code = < U/L 6-55 L 347) Account Advisor ID - JESUS LPROTHROMBIN TIME/[id number] 23:37:00 Test Item Value Reference Range Interpretation Comments PROTIME (BEAKER) (test code = 16.9 seconds 11.9-14.2 H 759) INR (BEAKER) (test code = 370) 1.41 <=5.90 Effective 07/03/2018: PT Reference Range ChangeNew: 11.9-14.2 Previous: 11.7- 14.7RECOMMENDED COUMADIN/WARFARIN INR THERAPY RANGESSTANDARD DOSE: 2.0-3.0 Includes: PROPHYLAXIS for venous thrombosis, systemic embolization; TREATMENT for venous thrombosis and/or pulmonary embolus.HIGH RISK: Target INR is2.5-3.5 for patients wiht mechanical heart valves.CBC W/PLT COUNT & AUTO [id number] 23:33:00 Test Item Value Reference Range Interpretation Comments WHITE BLOOD CELL COUNT (BEAKER) 12.5 K/ L 3.5-10.5 H (test code = 775) RED BLOOD CELL COUNT (BEAKER) 2.80 M/ L 4.63-6.08 L (test code = 761) HEMOGLOBIN (BEAKER) (test code = 8.5 GM/DL 13.7-17.5 L 410) HEMATOCRIT (BEAKER) (test code = 24.9 % 40.1-51.0 L 411) MEAN CORPUSCULAR VOLUME (BEAKER) 88.9 fL 79.0-92.2 (test code = 753) MEAN CORPUSCULAR HEMOGLOBIN 30.4 pg 25.7-32.2 (BEAKER) (test code = 751) MEAN CORPUSCULAR HEMOGLOBIN CONC 34.1 GM/DL 32.3-36.5 (BEAKER) (test code = 752) RED CELL DISTRIBUTION WIDTH 17.4 % 11.6-14.4 H (BEAKER) (test code = 412) PLATELET COUNT (BEAKER) (test 545 K/CU MM 150-450 H code = 756) MEAN PLATELET VOLUME (BEAKER) 10.4 fL 9.4-12.4 (test code = 754) NUCLEATED RED BLOOD CELLS 0 /100 WBC 0-0 (BEAKER) (test code = 413) NEUTROPHILS RELATIVE PERCENT 62 % (BEAKER) (test code = 429) LYMPHOCYTES RELATIVE PERCENT 26 % (BEAKER) (test code = 430) MONOCYTES RELATIVE PERCENT 8 % (BEAKER) (test code = 431) EOSINOPHILS RELATIVE PERCENT 2 % (BEAKER) (test code = 432) BASOPHILS RELATIVE PERCENT 1 % (BEAKER) (test code = 437) NEUTROPHILS ABSOLUTE COUNT 7.76 K/ L 1.78-5.38 H (BEAKER) (test code = 670) LYMPHOCYTES ABSOLUTE COUNT 3.24 K/ L 1.32-3.57 (BEAKER) (test code = 414) MONOCYTES ABSOLUTE COUNT (BEAKER) 0.98 K/ L 0.30-0.82 H (test code = 415) EOSINOPHILS ABSOLUTE COUNT 0.23 K/ L 0.04-0.54 (BEAKER) (test code = 416) BASOPHILS ABSOLUTE COUNT (BEAKER) 0.12 K/ L 0.01-0.08 H (test code = 417) IMMATURE GRANULOCYTES-RELATIVE 1 % 0-1 PERCENT (BEAKER) (test code = 2801) POCT-GLUCOSE [id number] 08:48:00 Test Item Value Reference Range Interpretation Comments POC-GLUCOSE METER 70 mg/dL 70-110 : TESTED A T [facility] 6720 (BEAKER) (test code = [facility], 1538) [id number]: Account Advisor/Techni romain ID = [id number] for ON LICENSE OF [facility] [id number] 07:51:00 Test Item Value Reference Range Interpretation Comments PHOSPHORUS (BEAKER) (test code = 3.9 mg/dL 2.3-4.7 604) Account Advisor ID - JESUS Beyer ID - THUAN FBASIC METABOLIC [id number] 07:39:00 Test Item Value Reference Range Interpretation [...] S NOT APPLICABLE FOR DIALYSIS PATIEN TS. Account Advisor ID - PIARI [id number] 07:18:00 Test Item Value Reference Range Interpretation Comments MAGNESIUM (BEAKER) (test code = 1.4 mg/dL 1.6-2.6 L 627) Account Advisor ID - JESUS LCBC (HEMOGRAM ONLY)2019-10-24 06:33:00 Test Item Value Reference [...] WBC 0-0 (BEAKER) (test code = 413) [id number] 06:32:00 Test Item Value Reference Range Interpretation Comments Protime (test code = 20.3 11.9- 14.2 H 5902-2) seconds INR (test code = 1.79 <=5.90 6301-6) PTT (test code = 49.0 22.5- 36.0 H 52742-6) seconds ABAD (test code = ABAD) Effective 07/03/2018: PT Reference Range ChangeNew: 11.9-14.2 Previous: 11.7-14.7 RECOMMENDED COUMADIN/WARFARIN INR THERAPY RANGESSTANDARD DOSE: 2.0-3.0 Includes: PROPHYLAXIS for venous thrombosis, systemic embolization; TREATMENT for venous thrombosis and/or pulmonary embolus.HIGH RISK: Target INR is 2.5-3.5 for patients wiht mechanical heart valves. Lab Interpretation Abnormal (test code = 56318-6) [id number] 06:32:00 Test Item Value Reference Range Interpretation [...] is2.5-3.5 for patients wiht mechanical heart valves.POCT-GLUCOSE [id number] 21:22:00 Test Item Value Reference Range Interpretation Comments POC-GLUCOSE METER 83 mg/dL 70-110 : TESTED [place] T [facility] 6720 (BEAKER) (test code = [place], 1538) [id number]: Account Advisor/Techni romain ID = [id number] for BRIGETTE ANSLEY MACIEL POCT-GLUCOSE [id number] 16:39:00 Test Item Value Reference Range Interpretation Comments POC-GLUCOSE METER 70 mg/dL 70-110 : TESTED A T [facility] 6720 (BEAKER) (test code = [place], 1538) [address]: Account Advisor/Techni romain ID = [id number] for ZULY MONTOYAABEL POCT-GLUCOSE [id number] 11:58:00 Test Item Value Reference Range Interpretation Comments POC-GLUCOSE METER 86 mg/dL 70-110 : TESTED A T [facility] 6720 (BEAKER) (test code = [place], 1538) [address]: Account Advisor/Techni romain ID = [id number] for ANDRÉS VOGEL [facility] METABOLIC [id number] 08:03:00 Test Item Value Reference Range Interpretation [...] S NOT APPLICABLE FOR DIALYSIS PATIEN TS. Account Advisor ID - [id number] 08:01:00 Test Item Value Reference Range Interpretation Comments PHOSPHORUS (BEAKER) (test code = 4.2 mg/dL 2.3-4.7 604) Account Advisor ID - [id number] 08:01:00 Test Item Value Reference Range Interpretation Comments MAGNESIUM (BEAKER) (test code = 1.3 mg/dL 1.6-2.6 L 627) Account Advisor ID - ISHANOCT-GLUCOSE [id number] 07:57:00 Test Item Value Reference Range Interpretation Comments POC-GLUCOSE METER 78 mg/dL 70-110 : TESTED A T [facility] 6720 (BEAKER) (test code = [place], 1538) [address]: Account Advisor/Techni romain ID = [id number] for CORNEL MONTOYA CBC (HEMOGRAM ONLY)2019-10-23 07:26:00 Test Item Value [...] WBC 0-0 (BEAKER) (test code = 413) [id number] 07:18:00 Test Item Value Reference Range Interpretation [...] mechanical heart valves.CBC W/PLT COUNT & AUTO [id number] 22:51:00 Test Item Value Reference Range Interpretation [...] PERCENT (BEAKER) (test code = 2801) POCT-GLUCOSE [id number] 21:49:00 Test Item Value Reference Range Interpretation Comments POC-GLUCOSE METER 110 mg/dL 70-110 : [facility] (BE[facility]ER[facility] (test code = [place], 1538) [address]: Account Advisor/Techni romain ID = [id number] for JEROMY CONTRERAS Tissue [id number] 16:34:00 Test Item Value Reference Range Interpretation Comments Case Report (test code Surgical Pathology = 104) Report Case: [id number] Authorizing Provider: Marc Clark MD Collected: 10/17/2019 04:26 PM Ordering Location: [facility] PERIOPERATIVE Received: 10/20/2019 08:32 AM SERVICES Pathologist: Carmina Grewal MD Specimens: A) - Gallbladder B) - Spleen DIAGNOSIS (test code = l5wjiHVgQTWrf4puAAAyzCL 3220) uZzEwMzNcZnRuYmpcdWMxIH pvgsBcQXrjc4XcR8YtJaMxA FxhbnNpXGRlZmxhbmcxMDMz DSF6phHlHLJtQRjcYLHmWRv aSd1nkCEbpMaeWoXzSXApd4 lwvsUEiytaiMa0x1miZLBgO zU2lCWcEYawC8mwuzVdxQNo KMQbFTt3lM83NRUkqA0uuRC xUEnrfrFkDqW1DQkpIRYzXs Y4RRLmkIToEUNyF8loBBMzM CwhOKVmDPymaHZzKDC6qNpv t4Y6rBShzNLetUxwNfWmMrJ qWKMRm6MvYMq6uHgvZ9LeTQ OjYxR9oXKoVJNhOOyrOOOyD HQqxjH7oJ83ATaoulC5vIHi g2Dyp01lj241iL6xgDJuYOJ 0FBCcLGAmeRLcHKYgWAG7SF RhtOOlF7i1RtKgoTAoL6Z5I kTnuFViH3Y5KkRadUQvQ2P9 SbPqdCKeLVVrjOMkBm2qfMS qmSVejs1mau11SMH8l7CirD alDWJ0WIX5OdMbNl8bkJHmK TBcSC0sPrXnzCKlCRYzmt97 oGzlLTpurzRyfB1oZqTmGAQ wcKHrGRYzPJ5jhQKlJIXuaT 5ucmxjXHBnYnJkcmhlYWRcc EaektHcKr7dkDzlYFZ2GQsi J1vkbY3vOnV5ASqnE9rpwP7 yRZz9RIhbqXX6YTYzrI2yRK 5dvcwdd0uzPvHkCJ5szbaby 6mpNiArPA6juva3n2znPbCg FJ6jxxgla8aoLqJyHOoeSCH pjfqmQYDyj0LxhtpoYLMcj3 BlL5MdqObhU86ujSnyE43jF WHyjCqyyA8fxAepwT1xTiTt ZnMyNFxxbFxwbGFpblxmMVx mczIwXGxhbmcxMDMzXGhpY2 noCrVqWDTiwBbzQEmmr5OlQ JXaDTFuBpSnDW2bA2WSCOBO CCOBXNPpNQOKK4uOZ8jPCDQ PBR6QTOogpGLwOEFuBX8yB2 uMB68UDvJWWS8CUFMQC8CKN TrFANGFZOTMKV8PLFSGAIIZ HS3XJAMzvCGhZVOfBO1pBd5 hB8WZBZCQZ63VXLZKEXAZQt RccGFyXHBhciBCLiBTUExFR A6eBLWKMJBIQEKPB04EFewm NFEyDQYtVHGJCGkEIAB4PNC 3MiBHTVxwYXIgICAgLSBTUE cMMy7YGMgIQSydaFCwEMXqX A5kWIfOYXRQRAUGNNiOFyJT G12ZRIDXLN0MALBRGlWGAQz VQHQKC1XXUMZFUVMPY9nIY0 cUQBTDHz4NWQDVWVLVDJVib aCgJLVkBL2UY2DTKVVYTTWE UcRLJIbSM91GDtQAKY7CJXd SDSIRE30LTVNehbhdOQJvT4 GcmEhopXGgNJZkOKtbXTD8n 1xydGYxXHNzdGUxODAwMFxh bnNpXGRlZmxhbmcxMDMzXGZ 0bmJqXHVjMVxkZWZmMHtcZm 3gbPZddNdrIiTwKZByb2pfk cQVnwptdBi2o8ouHMQlEcR4 jLVcAFtmJ1bsaaPcuMMsCES hFKa1hU94QZNptZ4tzLMvZH qvddDjFxR1QKluXWTrEuS9G VNkeAAnSMSaO4wsBGGnMKfc KIVjAGzrpPMjNII9wPyve4X 5bGVzaGVldHtcZjBcZnMyMi FUk9DbSUp4jJazD4UkIDWbY cH5lRBkXVTbTVgyBMXtJVKn xdJ1kY33JQvgpgQ7iJDrw4Y mc22ai195iC4chNUmJHX9XU FhHNKfuLQzTLMaFZN3WBTtz MRmH7wmHORdGA8tcdavVQee GRvhKMWipIF2BTCdxSLdN5Y zVUBvHYitWFJbsvb8MsBdLd 8ksHTopTkpSVkan9ejo2doz OLcEla4MWHsVuGnVzaoAUxy k9Cht3cmZTCrkn8bXXY5sMH tsCqxc2G0gVZeZGIsfBXqJO FhDT3ooNKmQYWbbF7vkxrkG HBnYnJkcmhlYWRccGdicmRy Cn3yzHsnEFL5FXpdA8fieK3 lNjT0NXglQ6jhfR9wZHc8FH uwACGosJO3llM4KIQpyFKkL 1LerF2jYVUcLN4ycld1t0se ITQ9GWzhQXReAkO3uaQ1RLD flDTtTSXrwNhjTQmhl797UV U9JbHiHTQoc0OfV6QuyAxlG 50egDluA21hDRBqpCfkqR2w dZznwK0gLuPbIwTkCDjjtGg uHY9qJGMbA5hqzRTxRZKeZB LhO4emCqPerY5dsUhpYKjvv cWzDENcKgj9FDAnwEMjRKAh Vur4ZKFpFENcE52kziucWAL 0yM6qd3ivh6RnQNvcLQT5PH Ygi64uWYrbnzT0VDmnVw38V XvpYRO1HydlEQO1kQ== CPT Code(s) (test code k2mykNXsYYRebUTbEaRuBLU = 3357) cBYEzu0nhTJAmrAIwLgAwAh NcZnRuYmpcdWMxXGRlZmYwe 8jeo515gYVve2zwVYLaKfU1 tSYvDOKepKIdE003x6nks2w zkfFvsNX8DMEsPGW2PCttbz ElwfT4XBdvgSDiSbL7FTrgx pXuNVqlanWuwiRuKag7ZSMj Z664NCA2kWwcs1icZKX0VKY iWOReDhLcVl0pjYDeM536UQ AgNAAYHJRwuGs2AALbndCmk aUltTFGc859N673c0zfTLVs ewEquXzPvggyn0ffV049CQV hcGVydzEyMjQwXHBhcGVyaD M1YKFwGS7memtjCtShEA9mu fliEnBaRS0fkqx3HtYjRP6x cmdiNzIwXGhlYWRlcnkwXGZ sg7AfsnnkMV3uU8Rlz8M0fU 9maXRcZGVmdGFiNzIwXGZvc o6pqRWxAZkbj7HbBDM0dwB2 uZEvnMTeWLScYV97Hblzk8H eCkqqKFT2DCWutgGlk8Xmx2 nuCrKwhrSyQ8ptY0PoYGWxN AObWNNdTcFaylZhw1Jcq5Um tNVobCi6o7umZMOtYGHhzIu pa4cvTTD9BRZuH0Q5hCOiv3 vtPItqYEYjwDN3relqGDmkB KMruiJ0ffwzFXpgWALbiFU7 zxfsUXdpVPBmWxL9gcdpARo eJFAxTTI7FRuoo868JUV8GL xzYmtwYWdlXHBnbmNvbnRcc GduZGVjXHBsYWluXHBsYWlu XGYwXGZzMjRccWxccGxhaW5 iMfQqMbKyLQjlOY4uKJOiX9 nomLZbXETpGWBrI7kdYnVcn Q7bwQsgPUpvdlCoAYj3IeH0 RgB5QIAzA8ivQIP0 CLINICAL HISTORY (test a4pqqDYgKMUqlSFdVxEnUMU code = 3356) yCCAtb3ppYHPtzCYkHvSzDp NcZnRuYmpcdWMxXGRlZmYwe 1ieb179dEToc3xgEKSySqZ4 aNEnDSWhwWFeK826m3ajm9d medLhpAR9LFYnZTA2QXjxog YppcZ5NObaePFcQjH9QSomh nWeFCygtqOvdbCuIiu8EQDb S433CCH3hSkap1qyBPK3DNQ dDHAuFeOlQq0xpSYrN055RC EnLJGZGHDbwFb8ZSStpuFby nDcsFRTo025S138n5cxLTNc miDbbLnNuhhqd1pqU343ZQW hcGVydzEyMjQwXHBhcGVyaD P3ABUsMJ0gatvzEcEcCV8ai hedEvYcVO9pmfy5XrTgZW1z cmdiNzIwXGhlYWRlcnkwXGZ hs2MsyutkAU8hQ7Blc4L9kA 9maXRcZGVmdGFiNzIwXGZvc l5psPVvRDyyv8FyCAR0lgL6 fREnqITpLUHfLM36Cewyl8Z zUwzxFSC8WJGyspSsx9Gmk9 wrHbTqaoTiV7muA5BkLXEvV DXwPGJwWvMhhrRdo8Xen8Bs aRSojPn5v1eiWJAvTIRzrBg rr8jnCVI6ODEzN3I4aCQpy6 sfEPfrNNLzsWH9jbisQUnhL AVpahP8vtrtNQiaYWBphGT5 ripzJYibIXWgRiT3qpiyDQg bHFHySNB1QKbyw752UKT1FV xzYmtwYWdlXHBnbmNvbnRcc GduZGVjXHBsYWluXHBsYWlu XGYwXGZzMjRccWxccGxhaW5 yOiGfNgJnUWvzUQ1kCUHrC5 dffXWcLGUvCSSgF7egFbGwe Y4bdCnnFKtyvwLmPKGqRX5i CZCtPYnjx2UtnzevHWRgcs5 edOTyiVWvA3IsLGNeeOyjVL C4zqUcUOLkBdrxCPKaTU8zd rGtaTy9oYYtgUnvIAHvjuIz l2FcHO2hNlW8RRvdNTTkec6 tVu7wuCPnREfjIKX8 SPECIMEN SOURCE (test i9jhdURoFPDczQEtSjPmIXN code = 3377) rDKEwf3fhSEScvROcEhVrOd NcZnRuYmpcdWMxXGRlZmYwe 7tov988hZKka3bkGNRxMzC2 bECdCFWmoRGwN195d6dgl7s prtNzdCM6JUClJOH5RPyyhn VwteC5INeqmBDeOgW5QVmkm lUaMKrkrmEximBqMfl8DRLh W025TWK9jCuns4saUEN4MLL aMQUuZjOwNb3byPQtO077JR MdCWMBLTKrcIv7UJToviBiq uRutNCHe494B695k5ieYGNt epZamIpHrkttb4jqM279ASV hcGVydzEyMjQwXHBhcGVyaD V3COYiLZ0byjbpGyTdNI9qd xzuTeCwPT4pgxh0JhAwAN2u cmdiNzIwXGhlYWRlcnkwXGZ ha9RfckemWI9wD9Xfn7P9qK 9maXRcZGVmdGFiNzIwXGZvc z8stHNhDIxwe7UmWAA9ekH8 eFZwjFLlKYNnVY16Kgwre0Z jDplfHPB4YCJvpvAva9Ouv6 nzQkSzdwCyW3ifE2UbWUWgM OLiSNCrVdLcyoYbp7Naa2Zw rQRgiJi4v9coVTQwITDmoHb xu5bgXSJ6OKStN6V5sZHfv6 zkWLnpKNLmfXU5rwnoXQrcO KJojvP4bqxaRBboDSFewQF2 xqipQDmbHAZtDeU4icgaRWw uRSZlUUK2EXtjd877LFL7WK xzYmtwYWdlXHBnbmNvbnRcc GduZGVjXHBsYWluXHBsYWlu XGYwXGZzMjRccWxccGxhaW5 wWwJlXwTfWSgjFH4qLFWlK2 dxiSJiGSIwCJTxZ9swBzIoh B3tgPkzDFxhvsBeAIxgdExr bGFkZGVyIGFuZCBzcGxlZW5 ccGFyfQ== GROSS DESCRIPTION o5zutACfYLTipSQfQwTfBUN (test code = 3366) pRIJyj2xiGBAebMEdHcAlRa NcZnRuYmpcdWMxXGRlZmYwe 2ozx353xBOfi0eqLTMkInL7 gQFtPFUavGWrD935LVErXGy ei9nwq6HpHVLqnJWld6R0JG HQtwncvXf8tVeaN76ve3S3A gclW1rsMWWdWOTgB2RfUJ9g ENAsBnk5AJT8UNM5PLTbJSP zO0KbYQ3zQPJksZIvRWg9w2 gjhMyuSXBvDOI2z1ggFXnmn zVeQG4kbi9lxPm7y1nxemTa OLMdWTPyoWFZXCGyU1RquSn dWk3uoAz1oVftKjhmFSD1Bl k3ZI0ktg85djo3yRlhWJQaq opfJhI2OWceYOJrcvibZFh0 MFxtYXJnbDcyMFxtYXJncjc yMFxtYXJndDcyMFxtYXJnYj yeKEnlZCXkBHX6GHdiu926P XG7GVspt5teu2iyoCToDxo3 KSJmCzZxFxjoOJesy7Pow2z rEADdts6xLNX6vBLmhYggr3 X8oGSzTCMzyPGbhqUyOOKpJ vD3TNtdPW1fgc98GYMoTRD1 gt8jwGUgiQolhaDdqPWgOBb nF6OsAGYlb024GDYbY8NkJX Deh8D8gkGcMvOcEZUwcGU8m jI9IEWcWOz6oSDbheJ7izWc kEJwE1nldC27AmRmeVUoC1V zzC24OjQczNGjV1VywH85Fl QcyBUiB2UbyW59VdVuxGWrL QAudUQgXk4dpWNlyYQqg9Nt cTAvUScnE13th561SAFwbdT aS1ptoMTfamcolVFhowumZY lalfE4LBSrTBScTEvbKAEyD GZzMjBcbGFuZzEwMzNcaGlj wVrkGLehZtToBTTyDFerS5u cZjFcZnMyMCBBLiBSZWNlaX ZlZCBmcmVzaCBsYWJlbGVkI HdpdGggdGhlIHBhdGllbnQn uiJqFB4oSWGwJ9Gqq4Lhq01 fwbMpJqXjRFGfADJeQ7WuiL XhVUEeLSHdjAAwVUU8RpOpB 39qfW0nzWHuZ8LvMUagWN75 HIXeVUlnZEScLZ6srVLiFRB rcfT6zP76u3a2KS4zQU2yBX OyHQflWmodZHIwnn5bDNowr hGpzMFeva5jQVP4QNBsWJOv T6qvlQzwZHT1N2ZwIG8jME4 bVOr3vMQxHN9sRPIfcHUsdn UtUvdzXI1qHDcpSJIwpm7eG BXzocByxoW3VIO5pbPhCUnc f84bx9WsMHGkWRJzyWWlxjO jpRCaTGDwi02vi3OtcixeSj wkdWnnnzDxcLMomj7iBiobR UMpnjIaXKwmcMl5pmSnujXv TV74HaGZzDOwnJIxj6ZcSWd jFONmut8uhn14ztKbtdZboo LxulA1tC4cSVdfIIzxaBtvg LthC9vaRDHkUCieRAUdZgNi lL4lJdSqmhGlHU38EKJkgfS cp8CwtDxmfiCdVSExRZP3Jo 2zbFTdWAIhqsZjDOKyBTL4D SRKQM6OIj8gUFdzQXBpkQIh AXUwLQArD4ZjwbFcUCPsMHQ vNGykLyCaPHKgb8w6fXK4xY FwcXY6lRNokJacIP2mqRVuA OJjT8Fnk5abekTzfB0sWPOw MG9hROWtf8VnAGPrOyHwdmV wKMJ7ZzLunOhuRTIrDKF4RN KaHpVdjUAbMdObT78wg1UqX BZxBJaocSptFCCaZ6DzdXOk mT26wyCex1TeXML7BNZuBGI opWbmQVQoMzA8SjGNfITcR8 Oqr4KrOSYukhEuhcN0KA6jn w7oanBketJyjG13MEY5QLAy byBzdWJjYXBzdWxhciBsYWN wgjN3zX1fARoyDTesCR97lQ NwLZPsVCWsBFLytQQht3QkN kYzTTDnlUQypHW7brYvDHKu MG9psm35ypzuoB5ml8wjpxE anZWrNP5jWIZmqdVkNUGcGZ ZzOZKlUEEnxcOdrI8jGkVWx tUnWLSiKGKwLNCnQFozGP00 aWZpZWQuIFxwYXJccGFyIEl dvrAql4ZeAjCfgOBqUZVejT UgLSBjYXBzdWxlXHBhclxwY BVeF6ExsFkpzxQsk7DlAmKd cGFyIEIxLCBmdWxsLXRoaWN adeMtboQpTPK0tJ9wNEVrjO L6pKZsuN1hmStvUQPmfWYlD 9heDGVqrkKFEvvxbDMaRL3o dGknTXD0puTluUomnqEyYOY dtM1daKJvGOTash0= MICROSCOPIC w5ebmJItKSYzuBSmYxWiCYA DESCRIPTION (test code iMPNtn4uaFIKlsLIfUjDhGh = 3371) NcZnRuYmpcdWMxXGRlZmYwe 7mce384rHZyu2ajXREcYzV2 cHOrMNPkyNPtX100z6aez8d iouFqcMC0KTGtXQM7XGjoic MlukX2HZdusPQaZkC1OAtaj xUvWQnorsWtqxXdBpg9PYVg B261HPF0aUlpb9tkVEU9ECD bAEAdRqOdMm8tyNVpN827WB GbZEELHMItmGn7CZHfyvHpc yWnxBVUh297H706a2zbNVOf zoAlgFrPyuahc9biB780URS hcGVydzEyMjQwXHBhcGVyaD Z3MOFnJZ8onxpjViLtHH2pm cjkSqFdSA5uzfa8FxAdOS4q cmdiNzIwXGhlYWRlcnkwXGZ qk8PtlidtMQ4mM6Abx9D1gH 9maXRcZGVmdGFiNzIwXGZvc j6mhPUlNJcmr2CxPAX8pfL8 cYIssJLqBIJsXL15Alyxb6L uIulkMFF3IKBhijOkk8Ely7 nsOvMejvIqH1zqC2NrOFCwT RIbXJHpZqBkzjAad9Mzo1Nm eMBsrXz2w5haBPYwPHJvuSo pw1jpQHS1VFKfY3V0sTMuz8 fgHIfdWCKieQU7joknKCmgO TGcwyM1dgxwTLwoVIPtzCC0 pwfySRfvUUQcZmZ4aupvLTr rYBYxOUS6GVkvl408ZLV0LC xzYmtwYWdlXHBnbmNvbnRcc GduZGVjXHBsYWluXHBsYWlu XGYwXGZzMjRccWxccGxhaW5 aOkVuKuBoLUygUN3wSDOrU3 zhpQOsBAEpZTAdB1xaNsKdq N2ehQdwNFpbozXaGZUhogAs ub0kOXPqoNVupT== [facility] [id number] 16:34:00Surgical Pathology Report Case: [id number] Authorizing Provider: Marc Clark MD Collected: 10/17/2019 04:26 PM Ordering Location: [facility] Received: 10/20/2019 08:32 AM SERVICES Pathologist: Carmina Grewal MD Specimens: A) - Gallbladder B) -Spleen A. GALLBLADDER, CHOLECYSTECTOMY: - CHRONIC CHOLECYSTITIS AND CHOLESTEROLOSIS - NO GALLSTONE PRESENTB. SPLEEN, SPLENECTOMY: - WEIGHT: 272 GM - SPLENOMEGALY - MILD VASCULAR CONGESTION, NO SIGNIFICANT PATHOLOGIC ABNORMALITY - NEGATIVE FOR MALIGNANCY OR LYMPHOMACC/pl Signing Pathologist Direct Phone Line: [phone] signed by Carmina Grewal MD on 10/22/2019 at 4:34 [id number]; [id number] diagnosis: Chronic pancreatitis, unspecified pancreatitis type and splenic vein thrombosis. Gallbladder and spleenA. Received fresh labeled with the patient's name, accession number and "gallbladder"is a 7.5 cm in length x 1.5 cm in diameter, previously opened gallbladder. There is no attached cystic duct and no lymph node identified. The serosa is webster-purple, smooth and hyperemic. Upon opening, there is no bile or calculus present. The mucosa is york-brown and velvety. The wall thickness is 0.2 cm. [employer] sections are submitted in cassette A1-A2. B. Received fresh labeled with the patient's name, accession number and " spleen" is a 272 gm, 15.0 x 10.0 x 2.5 cm spleen with a scant amount of attached hilar fat. The capsule is webster-maroon and intact, no subcapsular laceration is identified. The cut surface displays a red-brown, homogeneous and unremarkable parenchyma. No masses are identified. Ink code: Blue - capsuleSection code: B1, full-thickness section capsule to hilar marginB2, parenchymato hilar marginPerformedPOCT- GLUCOSE [id number] 15:47:00 Test Item Value Reference Range Interpretation Comments POC-GLUCOSE METER 91 mg/dL 70-110 : TESTED A T [facility] 6720 (BEAKER) (test code = [place], 1538) [id number]: Account Advisor/Techni romain ID = [id number] for ON LICENSE OF [facility] POCT-GLUCOSE [id number] 12:25:00 Test Item Value Reference Range Interpretation Comments POC-GLUCOSE METER 101 mg/dL 70-110 : TESTED A T [facility] 6720 (BEAKER) (test code = [facility], 1538) [id number]: Account Advisor/Techni romain ID = [id number] for VIKA OCAMPOJASPREETDELONCHUN BASIC METABOLIC [id number] 10:59:00 Test Item Value Reference Range Interpretation [...] S NOT APPLICABLE FOR DIALYSIS PATIEN TS. Account Advisor ID - SOTERO [id number] 10:54:00 Test Item Value Reference Range Interpretation Comments PHOSPHORUS (BEAKER) (test code = 4.6 mg/dL 2.3-4.7 604) Account Advisor ID - SOTERO [id number] 10:54:00 Test Item Value Reference Range Interpretation Comments MAGNESIUM (BEAKER) (test code = 1.5 mg/dL 1.6-2.6 L 627) Account Advisor ID - SOTERO MPOCT-GLUCOSE [id number] 07:03:00 Test Item Value Reference Range Interpretation Comments POC-GLUCOSE METER 177 mg/dL 70-110 H : Pt. refu sed rpt tst: (BEAKER) (test code = TESTED AT [facility] 6720 1538) [facility], [id number]: Account Advisor/Techni romain ID = [id number] for ERIC SANFORD [id number] 06:53:00 Test Item Value Reference Range Interpretation [...] 0-0 (BEAKER) (test code = 413) POCT-GLUCOSE [id number] 06:38:00 Test Item Value Reference Range Interpretation Comments POC-GLUCOSE METER 73 mg/dL 70-110 : TESTED A T [facility] 6720 (BEAKER) (test code = [facility], 1538) [address]: Account Advisor/Techni romain ID = [id number] for ERIC TURCIOS POCT-GLUCOSE [id number] 23:59:00 Test Item Value Reference Range Interpretation Comments POC-GLUCOSE METER 87 mg/dL 70-110 : TESTED A T [facility] 6720 (BEAKER) (test code = [facility], 1538) [address]: Account Advisor/Techni romain ID = [id number] for ERIC TURCIOS POCT-GLUCOSE [id number] 18:51:00 Test Item Value Reference Range Interpretation Comments POC-GLUCOSE METER 80 mg/dL 70-110 : TESTED A T [facility] 6720 (BEAKER) (test code = [facility], 1538) [address]: Account Advisor/Techni romain ID = [id number] for Noemi Vivar Amylase Peritoneal [id number] 15:15:00 Test Item Value Reference Range Interpretation Comments AMYLASE, PERITONEAL 9 U/L See Comment FLUID (test code = 6035148) ABAD (test code = Amylase activity in ABAD) peritoneal fluids of non-pancreatic origin is often less than or equal to the amylase activity in blood, whereas elevated amylase activity has been reported in fluid of pancreatic origin (five-folds or higher compared to contemporaneously collected blood specimen).This test has been modified from the special needs child caregiver's instructions and its performance characteristics were determined by [facility]. The laboratory is regulated under CLIA as qualified to perform high-complexity testing. This test has not been cleared or approved by the U.S. Food and Drug Administration. The reference intervals and other method performance specifications are unavailable for amylase in peritoneal fluid. Comparison of this result with the blood amylase is recommended. Account Advisor ID - ENOC SERRANO [facility] PER[facility]AL [id number] 15:15:00 Test Item Value Reference Range Interpretation Comments AMYLASE, PERITONEAL FLUID (test code = 9 U/L See Comment [id number]) Amylase activity in peritoneal fluids of non-pancreatic origin is often less than or equal to the amylase activity in blood, whereas elevated amylase activity has been reported in fluid of pancreatic origin (five-folds or higher compared to contemporaneously collected blood specimen).This test has been modified from the special needs child caregiver's instructions and its performance characteristics were determined by [facility]. The laboratory is regulated under CLIA as qualified to perform high-complexity testing. This test has not been cleared or approved by the U.S. Food and Drug Administration. The reference intervals and other method performance specifications are unavailable for amylase in peritoneal fluid. Comparison of this result with the blood amylase is recommended.Account Advisor ID - SUDARSHANGAMYLASE PERITONEAL [id number] 15:15:00 Test Item Value Reference Range Interpretation Comments AMYLASE, PERITONEAL FLUID (test code = 15 U/L See Comment [id number]) Amylase activity in peritoneal fluids of non-pancreatic origin is often less than or equal to the amylase activity in blood, whereas elevated amylase activity has been reported in fluid of pancreatic origin (five-folds or higher compared to contemporaneously collected blood specimen).This test has been modified from the special needs child caregiver's instructions and its performance characteristics were determined by [facility]. The laboratory is regulated under CLIA as qualified to perform high-complexity testing. This test has not been cleared or approved by the U.S. Food and Drug Administration. The reference intervals and other method performance specifications are unavailable for amylase in peritoneal fluid. Comparison of this result with the blood amylase is recommended.Account Advisor ID - ROSIANGMAGNESIUM 2019-10-21 14:08:00 Test Item Value Reference Range Interpretation Comments MAGNESIUM (BEAKER) 1.7 mg/dL 1.6-2.6 Specimen moderately (test code = 627) hemolyzed Account Advisor ID - LYRXISKONCDMTRRPP0430-42-44 14:08:00 Test Item Value Reference Range Interpretation Comments PHOSPHORUS (BEAKER) 4.1 mg/dL 2.3-4.7 Specimen moderately (test code = 604) hemolyzed Account Advisor ID - ROSIANGBASIC METABOLIC OLQQM2756-72-88 14:08:00 Test Item Value Reference Range Interpretation [...] I S NOT APPLICABLE FOR DIALYSIS PATIANAYA STOCKTON. Account Advisor ID - ROSIANGSARS-COV2/RT-PCR ([facility])2019-10-21 13:42:00 Test Item Value Reference Range Interpretation Comments SARS-COV2/RT-PCR (test Negative Not Detected, Negative, code = 2614047) See external report for linked test SARS-COV-2 PERFORMING LAB [facility] (test code = 9582503) Negative result for this test determines that [...] a nasopharyngeal swab specimen collected from individuals susp ected of COVID-19 by their healthcare provider.This test [...] 564(g) of the Act.Fact Sheet for Healthcare Providers:https://www.[employer]/sites/default/files/product/documents/Fact_Shee k_YD_Nanktoqcv_Kyfu_OGWN-GiH-4.pdfFact Sheet for Healthcare Patients:https://www.[employer]/sites/default/files/product/ documents/Ervc_Pxgwf_Skozkyav_Cdqh_CRUA-AhI-9.pdfPerforming Laboratory:[id number].[place], [place] [address]XUCC-BFADGFV METER 2019-10-21 12:41:00 Test Item Value Reference Range Interpretation Comments POC-GLUCOSE METER 99 mg/dL 70-110 : TESTED A T [facility] 6720 (BEAKER) (test code = [facility], 1538) [address]: Account Advisor/Techni romain ID = [id number] for JONATHAN JENKINS PT/[id number] 10:39:00 Test Item Value Reference Range Interpretation Comments PROTIME (BEAKER) (test code = 20.7 seconds 11.9-14.2 H [...] CELLS (BEAKER) (test code = 413) POCT-GLUCOSE [id number] 07:09:00 Test Item Value Reference Range Interpretation Comments POC-GLUCOSE METER 155 mg/dL 70-110 H : TESTED A T [facility] 6720 (BEAKER) (test code = [facility], 1538) 12771: Account Advisor/Techni romain ID = [id number] for UE AMXIME, PROSPER POCT-GLUCOSE [id number] 06:41:00 Test Item Value Reference Range Interpretation Comments POC-GLUCOSE METER 66 mg/dL 70-110 L : TESTED A T [facility] 6720 (BEAKER) (test code = [facility], 1538) 30[address]: Account Advisor/Techni romain ID = [id number] for UEMA RU, PROSPER POCT-GLUCOSE [id number] 06:13:00 Test Item Value Reference Range Interpretation Comments POC-GLUCOSE METER 66 mg/dL 70-110 L : TESTED A T [facility] 6720 (BEAKER) (test code = [facility], 1538) 63217: Account Advisor/Techni romain ID = [id number] for UEMA RU, PROSPER POCT-GLUCOSE [id number] 00:20:00 Test Item Value Reference Range Interpretation Comments POC-GLUCOSE METER 75 mg/dL 70-110 : TESTED A T [facility] 6720 (BEAKER) (test code = [facility], [facility]8) 93502: Account Advisor/Techni romain ID = [id number] for UEMA RU, PROSPER POCT-GLUCOSE [id number] 17:58:00 Test Item Value Reference Range Interpretation Comments POC-GLUCOSE METER 81 mg/dL 70-110 : TESTED A T [facility] 6720 (BEAKER) (test code = [facility], [facility]) 93725: Account Advisor/Techni romain ID = [id number] for Cb, Noemi POCT-GLUCOSE [id number] 11:56:00 Test Item Value Reference Range Interpretation Comments POC-GLUCOSE METER 87 mg/dL 70-110 : Notified RN/MD: TESTED ([facility]) ([facility] = [facility] [address] [place] [address]) [facility], 770 30: Account Advisor/Techni romain ID = [id number] for Simm ons, Anna POCT-GLUCOSE [id number] 07:16:00 Test Item Value Reference Range Interpretation Comments POC-GLUCOSE METER 99 mg/dL 70-110 : TESTED A T [facility] 6720 (BEAKER) (test code = [facility], [facility]) [address]93[address]: Account Advisor/Techni romain ID = [id number] for DE PRINCESS JANET MEHTA BASIC METABOLIC [id number] 04:58:00 Test Item Value Reference Range Interpretation [...] S NOT APPLICABLE FOR DIALYSIS PATIEN TS. Account Advisor ID - JESUS [id number] 04:33:00 Test Item Value Reference Range Interpretation Comments PHOSPHORUS (BEAKER) (test code = 3.3 mg/dL 2.3-4.7 604) Account Advisor ID - JESUS CMEBIQIKIY5445-78-31 04:33:00 Test Item Value Reference Range Interpretation Comments MAGNESIUM (BEAKER) (test code = 1.8 mg/dL 1.6-2.6 627) Account Advisor ID - JESUS LCBC (HEMOGRAM ONLY)2019-10-20 04:24:00 [...] WBC 0-0 (BEAKER) (test code = 413) [id number] 04:11:00 Test Item Value Reference Range Interpretation [...] is2.5-3.5 for patients wiht mechanical heart valves.POCT-GLUCOSE [id number] 00:29:00 Test Item Value Reference Range Interpretation Comments POC-GLUCOSE METER 91 mg/dL 70-110 : TESTED A T [facility] 6720 (OperaxAKER) (test code = [facility], 153) 46631: Account Advisor/Techni romain ID = [id number] for ROBERTO BARB CANCHOLA IGG SUBCLASS-4 [id number] 21:18:00 Test Item Value Reference Range Interpretation Comments Igg 4 (test code = 64.5 mg/dL 4-86 20190419) ABAD (test code = Performing Lab EZ ABAD) [facility] [address] [place] [address] Parker Herman MD, PhD, VENKATA [facility] HospitalPO[facility] [id number] 17:40:00 Test Item Value Reference Range Interpretation Comments POC-GLUCOSE METER 91 mg/dL 70-110 : TESTED A T [facility] 6720 (BEAKER) (test code = [facility], 153) 45734: Account Advisor/Techni romain ID = [id number] for INGA JOSY AMAYA [id number] 17:22:00 Test Item Value Reference Range Interpretation Comments MAGNESIUM (BEAKER) (test code = 1.7 mg/dL 1.6-2.6 627) Account Advisor ID - CARLOS FHUKYSMHFEE4333-63-52 17:21:00 Test Item Value Reference Range Interpretation Comments PHOSPHORUS (BEAKER) (test code = 3.2 mg/dL 2.3-4.7 604) Account Advisor ID - CARLOS CBASIC METABOLIC [id number] 17:08:00 Test Item Value Reference Range Interpretation [...] S NOT APPLICABLE FOR DIALYSIS PATIEN TS. Account Advisor ID - CARLOS CPOCT-GLUCOSE [id number] 12:50:00 Test Item Value Reference Range Interpretation Comments POC-GLUCOSE METER 136 mg/dL 70-110 H : TESTED A T [facility] 6720 (BEAKER) (test code = [facility], 1538) 61474: Account Advisor/Techni romain ID = [id number] for IMANI MARTIN POCT-GLUCOSE [id number] 12:08:00 Test Item Value Reference Range Interpretation Comments POC-GLUCOSE METER 64 mg/dL 70-110 L : Will Rep eat Test: (BEAKER) (test code = Notifi ed RN/MD: TESTED 153) AT [facility] 6720 Adelf[address] [facility] [facility], 770 30: Account Advisor/Techni romain ID = [id number] for JOSY WILL RAD, CHEST, 1 VIEW, NON [id number] 08:14:00Reason for exam:->s/p intubation, s/p laparotomy, eval [...] surgical changes.Additional findings: None. Signed: Vera Fowler Verified Date/Time: 10/19/2019 08:14:40 Reading Location: [address] Neuro Reading Room POCT-GLUCOSE METER 2019-10-19 06:48:00 Test Item Value Reference Range Interpretation Comments POC-GLUCOSE METER 70 mg/dL 70-110 : TESTED A T [facility] 6720 (BEAKER) (test code = [facility], 1538) 88894: Account Advisor/Techni romain ID = [id number] for ORLANDO GRAY PT/[id number] 02:18:00 Test Item Value Reference Range Interpretation [...] INR is2.5-3.5 for patients wiht mechanical heart valves.[id number] 02:03:00 Test Item Value Reference Range Interpretation Comments PHOSPHORUS (BEAKER) (test code = 1.4 mg/dL 2.3-4.7 LL 604) Account Advisor ID - SOTERO MBASIC METABOLIC [id number] 02:02:00 Test Item Value Reference Range Interpretation [...] S NOT APPLICABLE FOR DIALYSIS PATIEN TS. Account Advisor ID - SOTERO [id number] 01:59:00 Test Item Value Reference Range Interpretation Comments MAGNESIUM (BEAKER) (test code = 1.9 mg/dL 1.6-2.6 627) Account Advisor ID - SOTERO MBlood gas, [id number] 01:49:00 Test Item Value Reference Range Interpretation Comments pH, Arterial (test code = 2744-1) 7.45 7.35-7.45 pCO2, Arterial (test code = 30 35- 45 mmHg L 2018-) pO2, Arterial (test code = 166 80- 90 mmHg H 2703-7) O2 Sat, Arterial (test code = 99.2 % 96-97 H 2708-6) HCO3, Arterial (test code = 20 mmol/L 21-29 L 1960-4) Base Excess, Arterial (test code -3.0 mmol/L -2-3 L = 1925-7) Patient Temperature (test code = 37.0 C 8310-5) FIO2 (test code = 1819) 40 % Lab Interpretation (test code = Abnormal 41025-4) [facility], [id number] 01:49:00 Test Item Value Reference Range Interpretation [...] 0-0 (BEAKER) (test code = 413) POCT-GLUCOSE [id number] 00:32:00 Test Item Value Reference Range Interpretation Comments POC-GLUCOSE METER 97 mg/dL 70-110 : TESTED A T [facility] 6720 (BEAKER) (test code = [facility], 1538) [address]: Account Advisor/Techni romain ID = [id number] for ORLANDO GRAY Prepare [id number] 23:55:00 Test Item Value Reference Range Interpretation Comments CROSSMATCH (test code = 2264) COMPATIBLE Unit ABO (test code = A Pos 9345794) UNIT NUMBER (test code = [id number] 934-0) Status (test code = 0917978) [facility]INCPHO[facility]ALT Blood Bank Product (test code RED BLOOD CELLS = 2263) PRODUCT CODE (test code = E7112H00 933-2) [facility] (HEMOGRAM ONLY)2019-10-18 20:53:00 Test Item [...] 0-0 (BEAKER) (test code = 413) POCT-GLUCOSE [id number] 17:27:00 Test Item Value Reference Range Interpretation Comments POC-GLUCOSE METER 99 mg/dL 70-110 : TESTED A T [facility] 6720 (BEAKER) (test code = [facility] [place], 1538) [address]: Account Advisor/Techni romain ID = [id number] for JOSY WILL [facility] (HEMOGRAM ONLY)2019-10-18 12:31:00 [...] 0-0 (BEAKER) (test code = 413) POCT-GLUCOSE [id number] 12:12:00 Test Item Value Reference Range Interpretation Comments POC-GLUCOSE METER 111 mg/dL 70-110 H : TESTED A T [facility] 6720 (BEAKER) (test code = [facility] [place], 1538) 385[address]: Account Advisor/Techni romain ID = [id number] for JOSY JEFF BLOOD GAS, [id number] 05:05:00 Test Item Value Reference Range Interpretation [...] code = 1819) 40.0 % BASIC METABOLIC [id number] 04:56:00 Test Item Value Reference Range Interpretation [...] S NOT APPLICABLE FOR DIALYSIS PATIEN TS. Account Advisor ID - SOTERO [id number] 04:55:00 Test Item Value Reference Range Interpretation Comments PHOSPHORUS (BEAKER) (test code = 3.8 mg/dL 2.3-4.7 604) Account Advisor ID - SOTERO [id number] 04:55:00 Test Item Value Reference Range Interpretation Comments MAGNESIUM (BEAKER) (test code = 1.5 mg/dL 1.6-2.6 L 627) Account Advisor ID - SOTERO MPT/[id number] 04:44:00 Test Item Value Reference Range Interpretation [...] = 413) RAD, CHEST, 1 VIEW, NON [id number] 03:59:00Reason for exam:->s/p intubation, s/p laparotomyShould this [...] may represent drainage catheters. Signed: Meghan Atkins MDReport Verified Date/Time: 10/18/2019 03:59:10 BLOOD GAS, [id number] 01:36:00 Test Item Value Reference Range Interpretation [...] (test code = 1819) 40.0 % POCT-GLUCOSE [id number] 00:54:00 Test Item Value Reference Range Interpretation Comments POC-GLUCOSE METER 152 mg/dL 70-110 H : TESTED A T [facility] 6720 (BEAKER) (test code = [facility] [place], 1538) [address]: Account Advisor/Techni romain ID = [id number] for Ig Shasta chadwick BASIC METABOLIC [id number] 23:38:00 Test Item Value Reference Range Interpretation [...] S NOT APPLICABLE FOR DIALYSIS PATIEN TS. Account Advisor ID - NWJHOPFOWTL7597-41-59 22:52:00 Test Item Value Reference Range Interpretation Comments MAGNESIUM (BEAKER) 1.7 mg/dL 1.6-2.6 Specimen slightly (test code = 627) hemolyzed Account Advisor ID - [id number] 22:52:00 Test Item Value Reference Range Interpretation Comments PHOSPHORUS (BEAKER) 4.3 mg/dL 2.3-4.7 Specimen slightly (test code = 604) hemolyzed Account Advisor ID - DBPT/BPCL0773-43-76 22:51:00 Test Item Value Reference Range Interpretation [...] (BEAKER) (test code = 413) BLOOD GAS, [id number] 22:34:00 Test Item Value Reference Range Interpretation [...] (test code = 1819) 40.0 % Prepare [id number] 21:19:00 Test Item Value Reference Range Interpretation Comments Unit ABO (test code = A Pos 8792227) UNIT NUMBER (test code = [id number] 934-0) Status (test code = RETURNED FROM ISSUE 0794504) Blood Bank Product (test FFP code = 2263) PRODUCT CODE (test code = M5270F92 933-2) [facility] Hospital[facility] [id number] 21:19:00 Test Item Value Reference Range Interpretation Comments Unit ABO (test code = O Pos 6241750) UNIT NUMBER (test code = [id number] 934-0) Status (test code = RETURNED FROM ISSUE 8693820) Blood Bank Product (test PLATELETS code = 2263) PRODUCT CODE (test code = M9541D46 933-2) [facility] HospitalaPTT2020-09-11 20:02:00 Test Item Value Reference Range Interpretation Comments PTT (test code = 78451-3) 38.7 22.5- 36.0 seconds H Lab Interpretation (test code = Abnormal 99592-5) [facility]APTT2020-[facility] 20:02:00 Test Item Value Reference Range Interpretation Comments PARTIAL THROMBOPLASTIN TIME 38.7 seconds 22.5-36.0 H (BEAKER) (test code = 760) PROTHROMBIN TIME/[id number] 20:01:00 Test Item Value Reference Range Interpretation [...] is2.5-3.5 for patients wiht mechanical heart valves.Calcium, [id number] 19:56:00 Test Item Value Reference Range Interpretation Comments Calcium, Ion (test code = 1994-) 1.65 mmol/L 1.12-1.27 pH, Blood (test code = 08452-5) 7.25 Lab Interpretation (test code = Abnormal 53643-4) [facility] HospitalGlucose-Stat [id number] 19:56:00 Test Item Value Reference Range Interpretation Comments Glucose (test code = 2345-7) 182 mg/dL 70-110 H Lab Interpretation (test code = Abnormal 39465-2) [facility] HospitalCALCIUM, [id number] 19:56:00 Test Item Value Reference Range Interpretation Comments CALCIUM IONIZED (BEAKER) (test 1.65 mmol/L 1.12-1.27 HH code = 698) PH, BLOOD (BEAKER) (test code = 7.25 1810) BLOOD GAS, [id number] 19:56:00 Test Item Value Reference Range Interpretation [...] (test code = 1819) 50.0 % GLUCOSE-STAT [id number] 19:56:00 Test Item Value Reference Range Interpretation Comments GLUCOSE RANDOM (BEAKER) (test code 182 mg/dL 70-110 H = 652) HGB/HCT (H&H)-Stat [id number] 19:55:00 Test Item Value Reference Range Interpretation Comments Hemoglobin (test code = 786-4) 13.9 g/dL 13-16.8 Hematocrit (test code = 4544-3) 41.0 % 40-50 Lab Interpretation (test code = Normal 19496-0) [facility] [id number] 19:55:00 Test Item Value Reference Range Interpretation Comments Sodium (test code = 2951-2) 135 meq/L 136-145 L Lab Interpretation (test code = Abnormal 46576-1) [facility] HospitalPotassium-Stat [id number] 19:55:00 Test Item Value Reference Range Interpretation Comments Potassium (test code = 2823-3) 4.5 meq/L 3.6-5.5 Lab Interpretation (test code = Normal 89921-6) [facility] NA-STAT [id number] 19:55:00 Test Item Value Reference Range Interpretation Comments SODIUM (BEAKER) (test code = 381) 135 meq/L 136-145 L POTASSIUM-STAT [id number] 19:55:00 Test Item Value Reference Range Interpretation Comments POTASSIUM (BEAKER) (test code = 4.5 meq/L 3.6-5.5 379) HGB/HCT (H&H) - STAT [id number] 19:55:00 Test Item Value Reference Range Interpretation Comments HEMOGLOBIN (BEAKER) (test code = 13.9 g/dL 13.0-16.8 410) HEMATOCRIT (BEAKER) (test code = 41.0 % 40.0-50.0 411) CALCIUM, [id number] 19:10:00 Test Item Value Reference Range Interpretation Comments CALCIUM IONIZED (BEAKER) (test 1.00 mmol/L 1.12-1.27 L code = 698) PH, BLOOD (BEAKER) (test code = 7.35 1810) BLOOD GAS, [id number] 19:09:00 Test Item Value Reference Range Interpretation [...] (test code = 1819) 50.0 % GLUCOSE-STAT [id number] 19:09:00 Test Item Value Reference Range Interpretation Comments GLUCOSE RANDOM (BEAKER) (test code 146 mg/dL 70-110 H = 652) HGB/HCT (H&H) - STAT [id number] 19:09:00 Test Item Value Reference Range Interpretation Comments HEMOGLOBIN (BEAKER) (test code = 12.0 g/dL 13.0-16.8 L 410) HEMATOCRIT (BEAKER) (test code = 35.0 % 40.0-50.0 L 411) SODIUM NA-STAT [id number] 19:08:00 Test Item Value Reference Range Interpretation Comments SODIUM (BEAKER) (test code = 381) 136 meq/L 136-145 POTASSIUM-STAT [id number] 19:08:00 Test Item Value Reference Range Interpretation Comments POTASSIUM (BEAKER) (test code = 3.8 meq/L 3.6-5.5 379) POTASSIUM-STAT [id number] 17:33:00 Test Item Value Reference Range Interpretation Comments POTASSIUM (BEAKER) (test code = 2.6 meq/L 3.6-5.5 LL 379) HGB/HCT (H&H) - STAT [id number] 17:25:00 Test Item Value Reference Range Interpretation Comments HEMOGLOBIN (BEAKER) (test code = 9.9 g/dL 13.0-16.8 L 410) HEMATOCRIT (BEAKER) (test code = 29.0 % 40.0-50.0 L 411) BLOOD GAS, [id number] 17:24:00 Test Item Value Reference Range Interpretation [...] (test code = 1819) 100.0 % GLUCOSE-STAT [id number] 17:24:00 Test Item Value Reference Range Interpretation Comments GLUCOSE RANDOM (BEAKER) (test code 130 mg/dL 70-110 H = 652) SODIUM NA-STAT [id number] 17:23:00 Test Item Value Reference Range Interpretation Comments SODIUM (BEAKER) (test code = 381) 136 meq/L 136-145 FL, FLUORO, NON-SPECIFIC, UP TO 1 [id number] 17:22:16Reason for exam:->cholangiogramFluoroscopic unit utilized for a procedure performed in the OR. No interpretation was requested. Refer to the operative report for findings. Refer to PACS for patient radiation dose information.FL fluoro non- specific up to 1 [id number] 17:14:00Interface, External Ris In - 10/21/2019 2:43 PM CDTFluoroscopic unit utilized for a procedure performed in the OR. No interpretation was requested. Refer to the operative report for findings. Referto PACS for patient radiation dose information.[facility] HospitalBLOOD GAS, [id number] 15:40:00 Test Item Value Reference Range Interpretation [...] (test code = 1819) 100.0 % POTASSIUM-STAT [id number] 15:40:00 Test Item Value Reference Range Interpretation Comments POTASSIUM (BEAKER) (test code = 3.1 meq/L 3.6-5.5 L 379) HGB/HCT (H&H) - STAT [id number] 15:40:00 Test Item Value Reference Range Interpretation Comments HEMOGLOBIN (BEAKER) (test code = 12.4 g/dL 13.0-16.8 L 410) HEMATOCRIT (BEAKER) (test code = 36.0 % 40.0-50.0 L 411) GLUCOSE-STAT [id number] 15:38:00 Test Item Value Reference Range Interpretation Comments GLUCOSE RANDOM (BEAKER) (test code 108 mg/dL 70-110 = 652) SODIUM NA-STAT [id number] 15:38:00 Test Item Value Reference Range Interpretation Comments SODIUM (BEAKER) (test code = 381) 139 meq/L 136-145 POCT-GLUCOSE [id number] 06:35:00 Test Item Value Reference Range Interpretation Comments POC-GLUCOSE METER 121 mg/dL 70-110 H : TESTED A T [facility] 6720 (BEAKER) (test code = [facility], 1538) 2020[address]: Account Advisor/Techni romain ID = [id number] for SA BALDWIN, CATINA POCT-GLUCOSE [id number] 01:25:00 Test Item Value Reference Range Interpretation Comments POC-GLUCOSE METER 88 mg/dL 70-110 : TESTED A T [facility] 6720 (BEAKER) (test code = [facility], 1538) 25769: Account Advisor/Techni romain ID = [id number] for SASU , CATINA CT, [id number] 13:25:003-phase: venous, arterial, and non-conUnlisted Reason for [...] MDReport Verified Date/Time: 10/16/2019 13:25:44 Reading Location: [facility] C013Y CT Body Reading Room CT abdomen/pelvis without & with IV [id number] 13:25:00Interface, External Ris In - 10/16/2019 1:27 [...] MDReport Verified Date/Time: 10/16/2019 13:25:44 Reading Location: [place] [address] CT Body Reading Room [facility] POCT-GLUCOSE [id number] 12:59:00 Test Item Value Reference Range Interpretation Comments POC-GLUCOSE METER 148 mg/dL 70-110 H : TESTED A T [facility] 6720 (BEAKER) (test code = [facility], 1538) 78048: Account Advisor/Techni romain ID = [id number] for SHABANA MEDINA NEILShalini POCT-GLUCOSE [id number] 12:26:00 Test Item Value Reference Range Interpretation Comments POC-GLUCOSE METER 50 mg/dL 70-110 L : TESTED A T [facility] 6720 (BEAKER) (test code = [facility], 1538) 00713: Account Advisor/Techni romain ID = [id number] for JENNIFER SPRATIK Urinalysis w/[id number] 09:32:00 Test Item Value Reference Range Interpretation Comments Color, UA (test code = Yellow 5778-6) Clarity, UA (test code = Hazy 5767-9) Specific [place], UA 1.010 1.001-1.035 (test code = 5811-5) pH, UA (test code = 6.5 5.0-8.0 5803-2) Protein, UA (test code = 20 mg/dL Negative A 37439-9) Glucose, UA (test code = Negative Negative 365) Ketones, UA (test code = 100 mg/dL Negative A 2514-8) Bilirubin, UA (test code Negative Negative = 18716-3) Blood, UA (test code = Negative Negative 01682-3) Nitrite, UA (test code = Negative Negative 5802-4) Leukocytes, UA (test code Negative Negative = 5799-2) Urobilinogen, UA (test 0.2 mg/dL 0.2-1 code = 95190-2) RBC, UA (test code = 0 /HPF 74149-4) WBC, UA (test code = 0 /HPF 5821-4) Bacteria, UA (test code = Occasional 43671-7) Mucus (test code = Occasional 8247-9) Squam Epithel, UA (test <1 /HPF code = 32132-9) Yeast (test code = Few 58795-3) Specimen Source (test code = 2795) ABAD (test code = ABAD) Account Advisor ID - [auto]Account Advisor ID - moe Lab Interpretation (test Abnormal code = 40131-7) [facility]URINALYSIS W/ [id number] 09:32:00 Test Item Value Reference Range Interpretation [...] = 1585) Few SOURCE(BEAKER) (test code = 2795) Account Advisor ID - [auto]Account Advisor ID - hankPOCT-GLUCOSE [id number] 09:15:00 Test Item Value Reference Range Interpretation Comments POC-GLUCOSE METER 180 mg/dL 70-110 H : TESTED A T [facility] 6720 (BEAKER) (test code = [facility], 1538) 82421: Account Advisor/Techni romain ID = [id number] for SHABANA MEDINA, RITCHEL POCT-GLUCOSE [id number] 08:42:00 Test Item Value Reference Range Interpretation Comments POC-GLUCOSE METER 50 mg/dL 70-110 L : TESTED A T [facility] 6720 (BEAKER) (test code = [facility], 1538) 40840: Account Advisor/Techni romain ID = [id number] for AKOSUA GOMES, RITCHEL Comprehensive metabolic [id number] 07:47:00 Test Item Value Reference Range Interpretation Comments Protein, Total (test 5.2 6.0- 8.3 gm/dL L code = 2885-2) Albumin (test code = 2.7 g/dL 3.5-5 L 17933-0) Alkaline Phosphatase 120 U/L 40-150 (test code = 6768-6) Total Bilirubin (test 0.8 mg/dL 0.2-1.2 code = 1975-2) Sodium (test code = 138 meq/L 434-759 2201-2) Potassium (test code = 3.9 meq/L 3.5-5.1 2823-3) Chloride (test code = 106 meq/L 98-107 2075-0) CO2 (test code = 21 meq/L 22-29 L 2028-9) BUN (test code = 6 mg/dL 7-21 L 3094-0) Creatinine (test code 0.60 mg/dL 0.57-1.25 = 2160-0) Glucose (test code = 53 mg/dL 70-105 L 2345-7) Calcium (test code = 8.0 mg/dL 8.4-10.2 L 96252-7) AST (test code = 24 U/L 5-34 1920-8) ALT (test code = 12 U/L 6-55 1742-6) EGFR (test code = 158 mL/min/1.73 [place] [address]-4) NOT ACCURATE CREATININE CLEARANCE IN PREDICTING GLOMERULAR FILTRATION RATE . ESTIMATED GFR I S NOT APPLICABLE FOR DIALYSIS PATIENTS. ABAD (test code = ABAD) Account Advisor ID - PIAYA L Lab Interpretation Abnormal (test code = 96599-9) [facility] [id number] 07:47:00 Test Item Value Reference Range Interpretation [...] S NOT APPLICABLE FOR DIALYSIS PATIEN TS. Account Advisor ID - PIAYA [id number] 06:14:00 Test Item Value Reference Range Interpretation [...] /100 WBC 0-0 (test code = 413) HEPATIC FUNCTION [id number] 14:38:00 Test Item Value Reference Range Interpretation [...] (test code = 11 U/L 6-55 347) Account Advisor ID - FEB CBASIC METABOLIC [id number] 14:38:00 Test Item Value Reference Range Interpretation [...] S NOT APPLICABLE FOR DIALYSIS PATIEN TS. Account Advisor ID - FEB CSARS-COV2/RT-PCR ([facility])2019-10-14 11:39:00 Test Item Value Reference Range Interpretation Comments SARS-COV2/RT-PCR (test Negative Not Detected, Negative, code = 1985631) See external report for linked test SARS-COV-2 PERFORMING LAB [facility] ERYN (test code = 5105265) Negative result for this test determines that [...] 564(g) of the Act.Fact Sheet for Healthcare Providers:https://www.Agora Mobileidel.BrightLine/sites/default/files/product/documents/Fact_Shee t_ZP_Inveejkrn_Klvl_WEAS-QyM-6.pdfFact Sheet for Healthcare Patients:https://www.Vinylmint.BrightLine/sites/default/files/product/ documents/Vijk_Qxtdz_Thiletvd_Jhss_HYLN-YoW-3.pdfPerforming Laboratory:[facility], [place] [address]BJE, ABDOMEN/KUB, 1 VIEW MP5392-89-21 09:37:00Reason for exam:->Eval for persistence of CBD [...] Herrmann MDReport Verified Date/Time: 10/14/2019 09:37:48 Reading Location: [facility] Diagnostic Imaging Reading Room - [place] [address] XR abdomen / KUB 1 vwng1111-94-50 09:37:00Interface, External Ris In - 10/14/2019 9:39 [...] Herrmann MDReport Verified Date/Time: 10/14/2019 09:37:48 Reading Location:[facility] Diagnostic Imaging Reading Room - [place] [address] [facility] 09:18:00 Test Item Value Reference Range Interpretation Comments Triglycerides (test 66 mg/dL code = 2571-8) ABAD (test code = ABAD) TRIGLYCERIDE REFERENCE RANGELow Risk <150Borderline Risk 150-199High Risk 200-499Very High Risk >=500Operator ID - CARLOS Jacobsen MAGGIE [facility] HospitalLIPASE2020-09-08 09:18:00 Test Item Value Reference Range Interpretation Comments LIPASE (BEAKER) (test code = 749) 390 U/L 8-78 H Account Advisor ID - CARLOS CTXXGNMOBKOYJI3767-26-09 09:18:00 Test Item Value Reference Range Interpretation Comments TRIGLYCERIDES (BEAKER) (test code = 66 mg/dL 540) TRIGLYCERIDE REFERENCE RANGELow Risk <150Borderline Risk 150-199High Risk 200-499Very High Risk>=500Operator ID - CARLOS WPEXLAXVYJ4065-06-65 08:41:00 Test Item Value Reference Range Interpretation Comments MAGNESIUM (BEAKER) (test code = 1.6 mg/dL 1.6-2.6 627) Account Advisor ID - CARLOS CBASIC METABOLIC KNCLV5702-07-41 08:41:00 Test Item Value Reference Range Interpretation [...] S NOT APPLICABLE FOR DIALYSIS PATIEN TS. Account Advisor ID - CAROLS CHEPATIC FUNCTION [id number] 08:41:00 Test Item Value Reference Range Interpretation [...] (test code = 14 U/L 6-55 347) Account Advisor ID - CARLOS CIron, TIBC, % sat. (without ferritin)2019-10-14 08:38:00 Test Item Value Reference Range Interpretation Comments Iron (test code = 2498-4) 32.0 ug/dL 40-160 L TIBC (test code = 2500-7) 214 ug/dL 250-450 L Iron % Saturation (test 15 % 20-55 L code = 2502-3) ABAD (test code = ABAD) Account Advisor ID - CARLOS C Lab Interpretation (test Abnormal code = 94879-7) [facility], % SAT. (WITHOUT FERRITIN)2019-10-14 08:38:00 Test Item Value Reference Range Interpretation Comments IRON (BEAKER) (test code = 547) 32.0 ug/dL 40.0-160.0 L TOTAL IRON BINDING CAPACITY 214 ug/dL 250-450 L (BEAKER) (test code = 769) IRON % SATURATION (2) (BEAKER) 15 % 20-55 L (test code = 2590) Account Advisor ID - FEB CCBC W/PLT COUNT & AUTO MUGXQBERRTNH3150-03-82 05:36:00 Test Item Value Reference Range Interpretation [...] 0-1 PERCENT (BEAKER) (test code = 2801) PT/VVIS3052-35-28 05:24:00 Test Item Value Reference Range Interpretation [...] is2.5-3.5 for patients wiht mechanical heart valves.CHEM ZFMMQ2054-81-96 10:48:0017 [facility] ZOZCL8709-94-77 10:48:90762Gwfrirao HermannCHEM PANEL 2019-08-31 10:48:001[facility]annCHE[facility] CMCSI6408-00-60 10:48:000.50[facility]annCHEM WCLBA1938-25-06 10:48:64080Stpoijyh HermannCHEM DWTQR0744-91-73 10:48:003.1[facility]annCHE[facility] EIVMA8616-92-69 10:48:55105Prgxjzto HermannCHEM KHYPL8730-98-83 10:48:0025[facility]annCHEM OTHUJ2777-58-76 10:48:0014.1 [facility]annCHE[facility] LNLLW8755-95-51 10:48:007.4[facility]annCHEM PANEL 2019-08-31 10:48:63878Ukhhejta HermannCHEM WZEIJ9800-38-37 10:48:80527Oejhodfv NexblztKPSEDQEYHM8953-97-89 10:48:005.9[facility] LmjrcpxVQIIVJIHHZ6481-81-24 10:48:003.00[facility] GbsqhqbNMNVYURXEN0457-75-82 10:48:009.1[facility] NCWSMWNWUG7814-35-79 10:48:0026.4[facility] TdfutkgYPRTOEUNWQ0007-64-74 10:48:00 88.1[facility] YvdbrjoVYKNZJRWKP7005-23-24 10:48:00 Test Item Value Reference Range Interpretation Comments MCH (test code = MCH) 30.2 pg 27.0-31.0 [facility] TpsobcqQBGFBPRHBS4276-48-17 10:48:0034.3[facility]annHEMATOLOGY 2019-08-31 10:48:0014.6[facility] KtqlexkTJZGEGBSEP7514-59-89 10:48:00502Lcwioran GyrppsyTNWADRHRHY9113-48-69 10:48:008.8[facility] RczwdpsMSDSHDEJBN4423-13-32 10:48:0071.9[facility] WgwvvvsYBOZPXVKLU8100-59-67 10:48:0013.3[facility] RQBVSAGTBS8344-00-35 10:48:0011.1[facility] HamjigwUQUMYBNJGX4215-30-86 10:48:00 3.1[facility] GvgbdwjEZTRNLRZZO5409-85-75 10:48:000.6[facility]annHEMATOLOGY 2019-08-31 10:48:004.3[facility] KxxiyooPBMTAUNZOV2803-80-05 10:48:000.8[facility] LhrxjzwIXTEAGRGOL4505-83-43 10:48:000.7[facility] CkxhwmhXPOBUOROMO6995-64-67 10:48:000.2[facility] HacnjkiRTQUPHRVGG3744-35-69 10:48:000.0[facility]annCHEM DHDZN1920-20-02 10:48:0017[facility]annCHEM WZNZZ3751-31-04 10:48:80607 [facility]annCHE[facility] FNZIN0044-13-94 10:48:001[facility]annCHEM PANEL 2019-08-31 10:48:000.50[facility]annCHEM OFRTE0883-01-33 10:48:22749Bymezhue HermannCHEM NRYEP1798-41-64 10:48:003.1[facility]annCHEM FAWLQ9629-71-78 10:48:56359Uxcybwvc HermannCHEM ECJWV0470-10-14 10:48:0025[facility]annCHEM CSKCB9890-37-07 10:48:0014.1[facility]annCHE[facility] UDUQL9640-87-26 10:48:007.4 [facility]annCHE[facility] VHMTB8926-29-08 10:48:32741Qjoalnec HermannCHEM PANEL 2019-08-31 10:48:65988Dnmpvvbj IfzqrahJDQNGKDQBB6300-11-36 10:48:005.9[facility] TslfpfeSLBNZUFKTC9737-18-85 10:48:003.00[facility] TbiibzeZTTRONZFHT2359-75-93 10:48:009.1[facility] VwtwkskXVDAKOHTZU2630-28-18 10:48:0026.4[facility] LJZBFFLQWO6652-56-02 10:48:0088.1[facility] BqfgckjUDJIXIEEGQ7562-41-95 10:48:00 Test Item Value Reference Range Interpretation Comments MCH (test code = MCH) 30.2 pg 27.0-31.0 [facility] VvpyeqhEZXVVXHDMM8493-65-05 10:48:0034.3[facility]annHEMATOLOGY 2019-08-31 10:48:0014.6[facility] RzygeefEFVZWZSHUG0289-32-11 10:48:85016Opjvmahc IonoryjCRUROFUANR9144-11-02 10:48:008.8[facility] YbcxqtlTBHPNAFKAW9836-21-95 10:48:0071.9[facility] NwqibxaKPYCUBXNWW3885-50-82 10:48:0013.3[facility] FZCZHAKJVV4505-35-63 10:48:0011.1[facility] CrfbntjYFJXVRPVBE9632-12-74 10:48:00 3.1[facility] JjulpsqOIKSKMHGSF1750-92-64 10:48:000.6[facility]annHEMATOLOGY 2019-08-31 10:48:004.3[facility] IdwnjyvGSPJLCWAFF8341-59-30 10:48:000.8[facility] JkeeouiLTNCDIEGDE9858-73-87 10:48:000.7[facility] VqcjguhMOQWNCQGKK1126-65-77 10:48:000.2[facility] EsygvwpJZSCAFTVGT0888-20-97 10:48:000.0[facility]annCHEM ITWOG6864-48-11 09:13:0057[facility]annCHEM ARSRJ4735-57-41 09:13:002[facility]annCHEM UPZBS4336-27-95 09:13:000.40[facility]annCHEM JPQJW0063-22-56 09:13:87088Mlxontjm HermannCHEM VJIYW4702-29-47 09:13:003.5[facility]annCHEM CBAXT8009-74-35 09:13:05829Iejvlaea HermannCHEM KVDOG7598-49-14 09:13:0022 [facility]annCHE[facility] XYSBU6222-88-76 09:13:007.7[facility]annCHEM PANEL 2019-08-30 09:13:0015.5[facility]annCHEM XGYPN6993-96-19 09:13:70828Btqlzvsl HermannCHEM VKSTW4823-69-06 09:13:00<0.05[facility] VrefyjmHPTSCGVRBK1140-97-32 09:13:006.2[facility] QbgzxcuZSNEOYSNTV8317-73-16 09:13:002.92[facility] IPPFYGSHBL4991-15-22 09:13:008.5[facility] IfwdjghDPQRXADRPB1451-16-85 09:13:00 26.2[facility] IdjkrxpRDQSALOIPN4954-06-23 09:13:0089.6[facility] HermannHEMATOLOGY 2019-08-30 09:13:00 Test Item Value Reference Range Interpretation Comments MCH (test code = MCH) 29.0 pg 27.0-31.0 [facility] MmkpsddMEICSPWSJQ4984-84-14 09:13:0032.4[facility] HermannHEMATOLOGY 2019-08-30 09:13:0015.0[facility] MqvlgcfGBIURTKPZA9299-29-47 09:13:64544Joulppqp UhwvxblTPXXMVIDYY3846-47-41 09:13:008.emorial QvjchulGRPLLLJDVR1265-23-91 09:13:0077.2[facility] WfbuzliMXILHVSYUG3992-71-66 09:13:0011.4[facility] ZOEJEYZYAF8533-44-81 09:13:009.1[facility] HpzkqhnJCTRLOQOBR6093-58-05 09:13:001.8 [facility] PfuynjlRFTXBTSQFC7443-73-57 09:13:000.5[facility]annHEMATOLOGY 2019-08-30 09:13:004.7[facility] QfufieiCYIPBKXVRA9266-44-38 09:13:000.7[facility] YlzponsFRRBCLJZGG2421-47-23 09:13:000.6[facility] KgzhtilWZKDGBEZWQ8981-74-73 09:13:000.1[facility] HermannCHEM QONZC3513-16-35 09:13:0057[facility]annCHEM BQCFV5316-74-99 09:13:002[facility]annCHEM WYBPT0701-50-09 09:13:000.40 [facility]annCHE[facility] CPOJF4255-04-05 09:13:72488Iiskzxou HermannCHEM PANEL 2019-08-30 09:13:003.5[facility]annCHEM LOLKM3918-04-86 09:13:26393Bfwlzrnw HermannCHEM CTACF3382-09-23 09:13:0022[facility]annCHEM WHZWO7100-71-94 09:13:007.7[facility]annCHEM ZEZIT0829-91-94 09:13:0015.5[facility]annCHEM BVNGH9964-78-20 09:13:78021Lqogpfjx HermannCHEM EXZDB5486-51-64 09:13:00 <0.05[facility] PcrddhsBJCQWACDEB0975-37-65 09:13:006.2[facility] PGGWQFVTVU6720-09-38 09:13:002.92[facility] AsyayilVOZWUKEHIA2844-70-07 09:13:00 8.5[facility] HvqmzwvUGBUYJPWKA9056-40-62 09:13:0026.2[facility] HermannHEMATOLOGY 2019-08-30 09:13:0089.6[facility] SmogolgWDMIQKACOE8734-50-91 09:13:00 Test Item Value Reference Range Interpretation Comments MCH (test code = MCH) 29.0 pg 27.0-31.0 [facility] TjmfrlvOFOUQNBJJQ0113-91-15 09:13:0032.4[facility]annHEMATOLOGY 2019-08-30 09:13:0015.0[facility] SrwnvwmHEVKDDNMWL5712-42-35 09:13:17556Rphnicfi PaimlmhGBDGGFXSVL8360-50-90 09:13:008.6[facility] LitpfbiTJNCHNHYGY9789-59-22 09:13:0077.2[facility] JnmepwcWWODKTJXHT2185-86-36 09:13:0011.4[facility] QDNXNAKRLR1719-61-87 09:13:009.1[facility] KjjwbnoVUAIGHEROW4185-05-54 09:13:001.8 [facility] OzzpgmeFATEOMYBJF0611-74-02 09:13:000.5[facility] HermannHEMATOLOGY 2019-08-30 09:13:004.7[facility] OdyjnuyKDXMGBWWKF6496-87-00 09:13:000.7[facility] MftkpzkNOSFRQGDKT4790-93-54 09:13:000.6[facility] DwzragyBXUZMKCVBS4708-91-76 09:13:000.1[facility] MvccagwFRSFNOYTSR4407-08-93 11:29:00Not Detected (08/29/19 6:29 AM)[facility] ApionvrWDYJQFLEMN4843-85-59 11:29:00Not Detected (08/29/19 6:29 AM)[facility]annCHEM VATBA5482-50-32 09:30:0071[facility] HermannCHEM PANEL 2019-08-29 09:30:003[facility]annCHEM LMNBQ1957-33-95 09:30:000.50[facility]annCHEM QYVMT9064-12-29 09:30:01121Ywobmulr HermannCHEM PDZDC7687-31-55 09:30:003.3[facility]annCHEM QWGZB5468-13-51 09:30:52519Qektjaut HermannCHEM EFKFP8128-16-81 09:30:0026[facility]annCHEM PFBAG4936-67-25 09:30:008.2 [facility]annCHE[facility] NVVQL5159-64-70 09:30:0010.3[facility]annCHEM PANEL 2019-08-29 09:30:89198Ytgnkzpe GrbtottNKYRVKQMAO9662-76-99 09:30:005.2[facility] SqesuzkLUCTPJWYUQ6641-67-08 09:30:002.91[facility] JcfmlqcEGKYPJWYOY0327-58-95 09:30:008.8[facility] IsefazwVHQGQJMNPO4378-87-24 09:30:0025.8[facility] MJLDUMGTFW8935-70-74 09:30:0088.8[facility] SudxnfpFTVLVYNAVX9491-19-32 09:30:00 Test Item Value Reference Range Interpretation Comments MCH (test code = MCH) 30.3 pg 27.0-31.0 [facility] GaygnwiUGBCZMPDAO1032-80-33 09:30:0034.1[facility] HermannHEMATOLOGY 2019-08-29 09:30:0014.4[facility] WhioschXINNNYFMXN6346-34-95 09:30:84024Pcylvadh DwysvjcHDJUOLKRNI5008-72-32 09:30:008.6[facility] RflumggGETINCUCOP8959-15-66 09:30:00Normal (08/29/19 4:30 AM)[facility] RspaotyFSSZXLFWNT5784-41-52 09:30:00 Normal (08/29/19 4:30 AM)[facility] RolwdcxYNGZTGIEJX6544-41-92 09:30:0070.7 [facility] SsurdvpZHNSNTMCKX4755-87-56 09:30:0017.3[facility] HermannHEMATOLOGY 2019-08-29 09:30:0010.4[facility] PvwnsmyFWCMVJSVMM2077-55-85 09:30:001.0[facility] GsgvpwnFTTYJVQXPL0308-68-92 09:30:000.6[facility] AczysuyPZCWMBKDUR7830-83-47 09:30:003.6[facility] IvwtujjUJFTTPWWJW3771-73-05 09:30:000.9[facility] UUUDKSRUXI0723-35-32 09:30:000.5[facility] KsugbalINVSOPPABE9601-40-94 09:30:000.1 [facility]annCHEM NOVWT9190-16-83 09:30:0071[facility]annCHEM PANEL 2019-08-29 09:30:003[facility]annCHEM WQCCY6997-16-79 09:30:000.50[facility]annCHEM BRJAS5702-41-34 09:30:03716Ogvyyelx HermannCHEM SJYOJ5279-48-08 09:30:003.3[facility]annCHEM QNJDD3494-62-54 09:30:82532Pfacwtoa HermannCHEM KVAGZ7487-98-24 09:30:0026[facility]annCHEM VQKRC7840-98-49 09:30:008.2 [facility]annCHE[facility] YVYJV6566-58-73 09:30:0010.3[facility]annCHEM PANEL 2019-08-29 09:30:17868Nzbaixdp CdmtovsEQSTMDXODI3879-92-38 09:30:005.2[facility] UqrtsfnUFLGDOVNCW5511-66-07 09:30:002.91[facility] OsrpohuBZCINIOYZG8293-52-04 09:30:008.8[facility] RseniyhYXARZYJVIC0754-66-48 09:30:0025.8[facility] RBWPGEPZAS0111-22-36 09:30:0088.8[facility] JesewuqSBUIOUXUAT0872-27-32 09:30:00 Test Item Value Reference Range Interpretation Comments MCH (test code = MCH) 30.3 pg 27.0-31.0 [facility] PbpadjzBPZVOZXEXT5859-95-07 09:30:0034.1[facility] HermannHEMATOLOGY 2019-08-29 09:30:0014.4[facility] VnzsaekWRXJLXQTRM6561-11-37 09:30:71471Nvvqtzla BppmixaFTVCEDMIKA3372-80-78 09:30:008.6[facility] VlmyqqnKAKQOEZLBX5887-85-58 09:30:00Normal (08/29/19 4:30 AM)[facility] PrkveqpVIYTQLLACJ1169-94-08 09:30:00 Normal (08/29/19 4:30 AM)[facility] VsatlodCIWIIMUFNC9208-70-39 09:30:0070.7 [facility] IukuldeIDLULGZRBL0421-04-68 09:30:0017.3[facility] HermannHEMATOLOGY 2019-08-29 09:30:0010.4[facility] XovdbszCKZZBXVDIE4406-16-58 09:30:001.0[facility] KaynwdxMAXUTAPVNR9911-55-13 09:30:000.6[facility] EhqisgzPKXDQHPXHO6248-52-53 09:30:003.6[facility] LlttuupUCJLQDMIWL1705-12-24 09:30:000.9[facility] DMBEEWMJWV2904-13-44 09:30:000.5[facility] DprabrvCKHIHVMJAJ0819-29-91 09:30:000.1 [facility] SMZCGMA7126-44-95 10:41:00Product available 4(08/28/19 5:41 AM)[facility] FHEXWJL5325-85-04 10:41:00Product available 4(08/28/19 5:41 AM)[facility] WZHGGQB4204-04-00 08:37:00Negative (08/28/19 3:37 AM)[facility]annCHEM OSIIZ9876-74-28 08:37:005.1[facility]annCHEM WLCMY1296-30-54 08:37:001.2[facility]annCHEM IWZZQ5476-55-59 08:37:007[facility]annCHEM IPBIQ7259-10-54 08:37:0014[facility]annCHEM MRJHT2193-05-67 08:37:0088[facility]annCHE[facility] ANXHJ1227-37-61 08:37:000.3 [facility]annCHE[facility] PHFTM3670-24-75 08:37:00 Test Item Value Reference Range Interpretation Comments B/C Ratio (test code = B/C Ratio) 12 1 6-25 [facility]annCHE[facility] QCCFF9026-22-73 08:37:003.9[facility]annCHEM PANEL 2019-08-28 08:37:00 Test Item Value Reference Range Interpretation Comments A/G Ratio (test code = A/G Ratio) 0.3 1 0.7-1.6 [facility] QdkpmfpMOAQCIPFFF3298-72-04 08:37:00 Test Item Value Reference Range Interpretation Comments PT (test code = PT) 17.3 s 12.0-14.7 [facility] RpoiqvdQNQZODQNDA7951-89-47 08:37:00 Test Item Value Reference Range Interpretation Comments INR (test code = INR) 1.40 1 0.85-1.17 [facility] YiebxnkUAAFZUQQMI3185-84-08 08:37:00 Test Item Value Reference Range Interpretation Comments PTT (test code = PTT) 45.5 s 22.9-35.8 [facility] JskixqtMXHNCRVGJQ1056-50-03 08:37:00Normal (08/28/19 3:37 AM)[facility] PocqirhAMCGHWUCLP7167-57-87 08:37:00Normal (08/28/19 3:37 AM)[facility] KGZRRASMAX0947-60-12 08:37:000.0[facility]BL[facility] LQEGBPA2884-93-08 08:37:00Negative (08/28/19 3:37 AM)[facility]annCHEM INLUF0150-95-43 08:37:00 5.1[facility]annCHEM IBLPV2961-66-08 08:37:001.2[facility]annCHEM PANEL 2019-08-28 08:37:007[facility]annCHEM UOWHT0449-46-10 08:37:0014[facility]annCHEM WFBLO6714-35-46 08:37:0088[facility]annCHEM INDJO2313-36-90 08:37:000.3[facility]annCHEM HLPPF9340-74-05 08:37:00 Test Item Value Reference Range Interpretation Comments B/C Ratio (test code = B/C Ratio) 12 1 6-25 [facility]annCHE[facility] VDTYQ2612-04-42 08:37:003.9[facility]annCHEM PANEL 2019-08-28 08:37:00 Test Item Value Reference Range Interpretation Comments A/G Ratio (test code = A/G Ratio) 0.3 1 0.7-1.6 [facility] YfmtyupMUSUSODEGU9710-94-26 08:37:00 Test Item Value Reference Range Interpretation Comments PT (test code = PT) 17.3 s 12.0-14.7 [facility] BkwuogkJJTCUMUICG9680-01-83 08:37:00 Test Item Value Reference Range Interpretation Comments INR (test code = INR) 1.40 1 0.85-1.17 [facility] HkioggyKWGUDIKRRT9116-09-86 08:37:00 Test Item Value Reference Range Interpretation Comments PTT (test code = PTT) 45.5 s 22.9-35.8 [facility] VidjeibYLXTXJWDBA7808-68-86 08:37:00Normal (08/28/19 3:37 AM)[facility] RikksfsHXYHPQYHJM0156-97-93 08:37:00Normal (08/28/19 3:37 AM)[facility] ZLEHPEDUJT0428-30-32 08:37:000.0[facility] HermannSARS-COV2/RT-PCR ([facility])2019-08-27 00:51:00 Test Item Value Reference Range Interpretation Comments SARS-COV2/RT-PCR (test Not Detected Not Detected, Negative, code = 4199778) See external report for linked test SARS-COV-2 PERFORMING LAB [facility] (test code = 3885194) Negative results do not preclude SARS-CoV-2 infection [...] of the Act.Fact Sheet for Healthcare Pro viders:https://www.Movebubble.BrightLine/Documents/Xpert%20Xpress%20SARS%20CoV-2/Fact%20Sh eets/302-3802%16BJLF-DRR-6%20HEALTHCARE%20PROVIDERS%20FACT%20SHEET.pdfFact Sheet for Healthcare Patients:https://www.Tigerstripe id.BrightLine/Documents/Xpert%20Xpress%20SARS%20CoV-2/Fact%20Sheets/302-3801%20SARS-COV -2%20PATIENT%20FACT%20SHEET.pdfPerforming Laboratory:[facility] [place], [place] [address]Luoazhgs7797-56-00 17:29:00 Test Item Value Reference Range Interpretation Comments Case Report (test code Medical Cytology = 104) Report Case: [id number] Authorizing Provider: Uriah Childs Collected: 02/15/2019 1226 Ordering Location: [address] Received: 02/15/2019 1529 Service Pathologist: Nereyda Causey MD Specimen: Common Bile Duct, Distal bile duct brushing in CRR DIAGNOSIS (test code = t4ctwKFrDOInt4boPHBszP 3220) FuZzEwMzNcZnRuYmpcdWMx DQyqgjHiXEibz3FnB8ExKg AwMFxhbnNpXGRlZmxhbmcx PTHaBMI0nbJqADSbOQasRY TdMJomAz6lkCFyaVaqXqXz UHTyh2tzbwLHxavflWw3m1 gfQCBbUcN3sDDjPHsuX9ds lyGhwVOfMGYvGLj2nY95CS VunR2dlIIzCQhhowBxVgP0 BVdaLIUhAeT8FGDlrMRpVM KjQ1pxIGMkCTigVACxZEjr qANsVNX6gAxpj8G9wGNyaW QzaVpbPqQiZwUvTOSFu2Du KYv5cHepI9WxFPLbFcB8oL QgUGFyYWdyYXBoIEZvbnQ7 oA17PKibgpQ0fLLxu6Frh1 1qw503fQ5wpUIiDVN6SUPv GQFfyNCgNXFsFOV9MSJwfP KfM8v2AlKyqMZyM6K1LvEl qDGuL0I4KrVbtKGoY2M3Vg AutZOkQKVskXGoHw5vdQCi aITfnz4dxv98ACD1e0YgkY afLCT8OPP7ZgEkBe9nlPLe ZMGoAZ0bNkPauARcXCRsyf 44dSbpHVrywhIttP2jBhIk AAJwpHJuITFjNM4avZFxBC QxiO1aynhpMLSfBsEguvjp PWWrcPreclXtGn3cjNsiBU F3KQyzL6dueA3gIqT4WLah S3wurC1iLQr6OFdjjYY7YF ReiE8xJG8exqbio6erYqRl FP7kgqcpl9xrRdPcQC0uic n4k5xsGxFcAZ2wwpfyi6wc NzIwXGhlYWRlcnkwXGZvb3 EpbzmzUXMhm2VlD6JmkDfi X25saHjhY55tJMGbpWrxqU 5pySgipE9mKnMnIuLoPIig bFxwbGFpblxmMVxmczIwXG xadjxcRXCpGZzvX3yqGdCz TXXfqAqsRPkno1LeOLJnMT YoZcBrG56EUA3OCYRFCLQt RFVDVCBCUlVTSElORyAoQ1 yCL2KHNR3LVADLNZLEFTaD GUFFQ3BDURfddDneULZdDT DvNZ3ZWWFVGAJEDEjQUMOT NVDDTXnOXdKRKxBKTJ7ZBK BGQVZPUiBSRUFDVElWRSAo D4JAIPWOJP6TLfUkCSJojl 24YYW9NtTop1M6KMH9RUBt ALFxz8jdDQAbjZNbBdPkNk NcZnRuYmpcdWMxXGRlZmYw z0hgz933uPKmp1nlAARyFt K6dOXnGPBflFTlL700GVFo VUpvl5ctl6YsJSJxbVWvi1 E7ZUAYjslifPj1eWbwG75k l8X2IvpeW7wsVGHdDPCaH6 AdYA4zBFWvTjk2OJC8HGP0 BZGmJOLtI8CgBM9pEYJhsN YpUZh7b6hgtHbxPGGzVVX8 y4uhTBkrmmLxGV1eqk5lzR h9m4jflxFlUDPcHVNqaGKF BPXoI7ZrxFoePl4cgSi0gA ydYqziQGZ1Zkm0PL5ena94 cpu8vHqiEUQcbfpyAcZ3TZ ktJRHviwtiGQp0ERkwFKTk sBK4NZZjyEKcA6ZhXKCiNG 8rcpa2UEO1BDzdEQXpTqP1 NDBcaGVhZGVyeTcyMFxmb2 41UBY0XyKeOQ9iR8Bxe4Y3 vF2tpFNkFQCcuYIsGpOgUL Akrm7zfZBaIYvww3PnCIS2 gzF0fLQtoCIqYITbXeP4LV aqUD0giw72CRCgAVL2hq8g bGNccGdicmRyaGVhZFxwZ2 JyVHPdy664XCOtO4RoDNXg r8Y2spJdEcMpSVGblZD7cp S7TKCzCQ3pohkmc6zaHMrp ZZguUKXjqdT9tkW1ICXslR CzN0BhrI6xIQEpEZ5nlwzv k7txFKC0TFrbJLRkIDN4Ii RwKATsy6Zmsow7XvMoc4St dZMbIKaeB64kr008EJQefu NyC1ltbNSmzbkbyBQttzwc KLwawrG6YJQrXHfvdvnwVC YnXYxcK7pqPwOxYHMttUba VLwip0QzHOKnGGCpLbCuxH NgRPYzGxw3WGTimLYsDFBh QnWaF3xryizcDaTTGXPwu7 srJ1gkaAZYjAZgW3QoFDqc ufIzJBbkQXugZKW9GIJ0Bl 78IaL0MSEkiu02 COMMENT (test code = i6lmgENbBXVteSPyVeXtYI 3359) ZwVAEvh7iiQWMjwZPuCzJh MzNcZnRuYmpcdWMxXGRlZm Qxn9dcy821pUItc5buACLf MeJ8eYGdKJQbmSQsP356l6 vqq6vwmdQarSG7OZExOSF9 MIsucxZptpA1HOmyxZJaIo A8EXjsyyOcBLczfhZhkrDf Cxk1EZVqB601ZOZ8eTawu5 knALG7QAUcXLSwGoRzZr2x iLUuE037NTInACFTGCCdiU q1ABTsriSmnfHspZUHr466 Y269p1taNPMygtVwqUcStv how3bpE187NSBiwTDwefZx RtXuOOCmjYRshIP6UJXiUJ 3yuoyjXmRjZR6etjshRpCn EU2hukp6JuTxRE2qipzkLi GhCZihYXZmkzimGMXvm9Gf sfxvJY9uE9Pps2I6oO5xlC BoPGGpoUAmGbPrSKCtto8j qSUrTSfej3DlLIW6ulL6lX NzaBInUUKnIG50Nzdns1Ec VxgjQRQ9XZAlfaHxp1Kqz0 ezQdDavtRxC9ueB4QzABOz STKqFXFoIzHswkOzy2Lra3 JsnYWiwJf6y6ymCNDjUQCj jUmss1twSJN5IFPiV5G8yA Mmo4gjRSnsAPVwmKQ1bzwk VOlkEMKordP0vhhoXAtlGB IslPG3msbhSLtbTTDhEpY7 sxedHGbvKZJpEBR6BNgaw0 22UGO4ABlnTvjhQNvgFDPm bmNvbnRccGduZGVjXHBsYW luXHBsYWluXGYwXGZzMjRc aAlioTjohH7lNfEmMqWzHO daRI1pGCMwH5etnEXqLZBw LSHhD9huPxOpnY2vhByuQP xmczIwIEZldyBtaWxkbHkg PGU6uXaiPBgrW3QtxPKnMF DuRXSgKKFyvzRcWL3dZEic kQzgeCkwPIpkk5Tucevwy2 Fxv0ExyiQoCOTbfeWdQ4Vu vzEgpEBsS8PiteSivqStDL ZvcmVkLiBDbGluaWNhbCBj o9OvWJzqkMwlwnBswdLuWV EoiV5lohIfII9raWFyoI== CPT Code(s) (test code d6meoXBpBYJtgONxXsNfNC = 3357) FrYPIlq6rwYYLngARwBjBe MzNcZnRuYmpcdWMxXGRlZm Xni3akx500qSAyi2ifAGSo UoI6cDAjVAKrtYWwM169u3 pee5aeitYsxLR5ZRAlDPK1 OJdnrqCcfbU9RHzapDLdBs E9BBjbezKcIBjeigIuheOy Wzf9OWNfU954NLX7uVqgj3 ooZJL8GMYnQWNxDrShAp0o nOBzJ790OFTnMHPFRUVsbR l6WNNinnWwwhGyoYGKj949 K605q1oiXBQbeyVrtHsIab czp4naZ751UUGorVJulzUv TsUiTZCblDNhzEA1NFXoHM 7efxviAmMoDG3fhxixWaIq GX2wevv4TfXcZY5pfsnkMd CcSCgrAWHzmfxkWYFxb8Jx paqoAW3yN5Dov5C8rJ8gwW JvNZVbkTRyYuPtLUMvkl3j sKBmTMdnw4KqRSL8igN6rL FoaSFwOLFlBT00Yexcu0Pa CluhQRZ4DNLjdcWof5Ghi9 yoUyLeaiQhJ8mfJ6JdBGFv IDUrUEQxPfChakQlb5Aop4 BlqBOekGc5y2evDKJoPDIk tIban5wtFEQ6KSOfX2O9mC Swa7spMOdeUTQeeNX4anyr DAjrWAJdnqD0xijwDAokSA LmtRL8hlmoUHzwPIStIgN9 hicvDVedLNLxAMI6SXcsk9 46QUU7YUyfDjkwLGvyZHOb bmNvbnRccGduZGVjXHBsYW luXHBsYWluXGYwXGZzMjRc tAladFqrjM7mMtUcHdClBS kjLO7zFBJzS2fblEUeSUZs RMFdE7evOgSscK5cpPzuFN rrhcNeXYg5PIT3PRL5AIUd NVxwYXJ9 CLINICAL DATA (test y7malUZpFYWxkYDaRfYoQO code = 3355) BbOZIwv0qaTJCyaZTsGlLw MzNcZnRuYmpcdWMxXGRlZm Ptb4xjp844vBMll4kvRQYz JyD5hLJxRHRywXHyV649RP CzLKpep9nzp0KgUQDmxDCs j6J0CPZGozxmfEb4tIlxF1 7ni0Z8QkdaO5hlCWPuKINy R6DtMQ8sHXDsPic3HEP6XL A0MFWcNJFgR6KlPE1uRXFg gOCvOIt5s0bceJiqZITyOD Q1m4jeVAeizfJxAB3wua6m ySj5e8jfcgFdIQPcNQNmmT HAQJSxN7WweSmmYa2biNc3 gHhfSfdsKCI2Axa2BB4trk 00acn4eTicLEEpifbhFgM9 JCreHLXbwowgJUt5UBdxJK JnbDcyMFxtYXJncjcyMFxt YXJndDcyMFxtYXJnYjcyMF gwFCNbXCJ3LSbpp544LVH6 HMbex8kmm6acsSThFou2WV FxQpJnTcpyGOtfm7Xnq5qu LAKlgw2dYJM6fSUmkNfdb2 O4fFHwVKWovNMslvDwGSHl ImP2RXlwOG5vya67MYRhID M5lw3opFBapYcfczSsrKEu TRmtO2CqHKRuy209JOHrG2 XmDXErl4K9nwTxZoAySKDf nAC6xjO0RQXwKYm9aCAxgg V0hzBhoCFvO3lpdY72UjUa wECfG7KszX79FuBfjZXnN7 PjbV63SvCdnEYpE7VcnP19 DeSezTQcPTLowLFlPw6ggK WrxWLqg5VfuDRfZNfbW81y a313HMFridDqZ9ewsRJnpj fozBOicysgGOdsgkA7OPTo XHBsYWluXGYxXGZzMjBcbG FuZzEwMzNcaGljaFxmMVxk PaBiSROkPWswY2zrJwUhUr MyMCBKYXVuZGljZSwgYSBs j5EugYr5LUYhRckbbETbgT LmeKAwH9P8bjFrm2f1dTG8 eMW5dgUixRGqzTzeqJwenj xwYXJ9 SPECIMEN SOURCE (test l0sjhYCtRGLnsICaGsUtYZ code = 3377) GlLFMjw8qdMDZtmHVpCoEl MzNcZnRuYmpcdWMxXGRlZm Lmv4ymj959dWUbe8qyIUHt RdY5jTEqKFAcaRSlM655s1 wma2wsyuQxwEM5YOQiYFB8 SUniecPawmT1QFcznDQcVa P9IEfnazDaDCeoczPpttOv Nal7JNNfV874BAE8aTzdq4 vgCIR6CZOzBWYhUvGzGl2x qXApC636JUEwEIETTREyaU h1DACemtCbrrTfxWNLd937 R763d2ptLWQtouIskMlYic ohx5kkS785YDDsiVUygjCq ZtDoJHGlnCCizND0DHMuOU 5eyozzNfYpYD1barfwRcNg IJ1ajpg5PkFvJS0qciqdSz ClFRnzRGGdssczFGTtx1Ck kdwoKZ2tU4Kkr0U1sG1xnY CgFKQgbPUjVfKqQXDtoz6w wVNgCZkbh6LcJSQ2shD1eM QcrHTtMPTeKI76Wgtyn5Bw ByxfOSG6SLDhegGyq9Ssl3 wzXjNgqdSaZ7ydN9SaZSYw FZUxXKKaBfYoxxOfy6Gmh3 BmjBAthHs1o0moQUJaFQLv jRelm1baTCN7NNBfF4A4aU Gld5rlFRdoSVCezDE6ucnq LNuzLVDwrnA7hilwDEhcNQ SirLU4hhjtGZupCMCbUaZ1 ifloBIemUPNpKZL9EXskb9 85YLG1HPxoHcxnCQmdDQPp bmNvbnRccGduZGVjXHBsYW luXHBsYWluXGYwXGZzMjRc zFaacLbosX0iGoHtNuPtZP luYU3bEBFjS1lazDGaJIMp PBZsL7zsNdWwrG7aqCuiNQ vninHeCPWLAX5SFoGRVXsC ZKDJJ4OlBbPZE9iOUdvbdD FyfQ== GROSS DESCRIPTION (test q5rntICcHNYxoSGrYwFuOJ code = 3366) SmJJHhr3fwYABwqYVlIuGw MzNcZnRuYmpcdWMxXGRlZm Qnd1byf143zODfy4fdYXMc DfT8wWMnGOBrgMAuY036AL UnIBptb4kgv0MvNNFeyDSz w0G0IPFFvrrlhSb9tJlpY3 2qd3E9OdjcX4bqCASzSCWe W1GrUN2kAWLkDqd3EOZ4CI U4PKVeISRtZ2ItXX6wZTXr tVHzDYm4g8ytrXzuENTqRA A9n5daBJvsipJpVY3bvo9w hSi2i5mforNmJLUpPZAomY QDLKOtP9LlfPjdPg7eqHr0 cZetOrwaTIQ5Obe2XI6tab 68tya7uMsxFMZadabcGoL6 CZruBNYwjcjhSOb0EPacRN JnbDcyMFxtYXJncjcyMFxt YXJndDcyMFxtYXJnYjcyMF lzSZImIEZ3CVlfo895GWI5 LXzrb7fsu6dzaESyHxn2QA AmEfRkGlgrSSwgj1Qff2qx YGSmds5yLVD5aARrdVdxg5 S8nEAzDDNdhALvzeBkXLXa KyD5TOrhBH7ngl09EEDaUW G0pv2hcKBvhMccxyLxaYMj QXteO8KzONOmr578HFEiZ9 CyEHTzg7P3rfQjEgDsTDHl oXP4arP9ACMzGQq2dCPikx U0awYtiRNvO4vmzA69IuXe jYNzE9TmdY04DfIpqYMvU3 PxhG54ZaGipHCgY0MzlM93 LjRkaYAhZVBfsFHlLl6dpA NklTZvy3RpqRFoWNjnE28m u133WMQhpvKxL8xxcZNxyp reeEHddckqAPhvcvK3JPGw XHBsYWluXGYxXGZzMjJcbG FuZzEwMzNcaGljaFxmMVxk CkAeMHFpQAxfQ9lsLjIlUc QqTqFfHLCyuOWjnG3cY2f7 y1DnG1rmmoThYbJlCXI6sN 0obRmifpevB8HlvOMssH2m zyEtU01htV2wiE7nVATbPq bilIJpBRYffJyiI8XpLWdg MDExMTIwXHBhciBSZWNlaX ZlZDogMDExMzIwXHBhcn0= MICROSCOPIC DESCRIPTION e2dgfZFsZBTbfGZkUaYjYE (test code = 3371) XcINUca9qkMCItxUFlBaJh MzNcZnRuYmpcdWMxXGRlZm Fql7hbl774uGDqn3iwCRCb UrM6oUVxZMRbmAXpF033t5 qcm6jhojRdcZZ7MQAiPFX5 ZPizkmSeymQ3QXqrpXInRp O5XIammjVtDMaoorNlykNi Qma2KVZqT318XXQ8mNqld7 etQQY1OWVkMLIvZjZwTv9y sZShP697BNJlTWJYEKDwmU k4PRFwfnEczfHkkWCSm420 O882a6fuLYFwmfEahMkDsy zmx2rkO123KEMnyHPlhpOs AhQvVGOaxMYfmXN1DELaXQ 2stxxqAqQvBG5wuzswPxMd AL7rchf5WbPmLA3xqzggMc IrTOwfZIEpjgqwGZXzz6Dy mnznYA3tG0Nvm0N2nW0quJ ViKJAewHUaShYuCIAafr3n uFSbGCzue1HjKQY3qhX7mC GmeUZjUTYjTU28Pipiz4Gk WpaoTXQ2YHKsfgOkr3Uud6 rhHrLvdtXlV0ktJ8GjLWJf EBDhLBByOnMaixEld6Jsv7 CehGHdyJr5l6uyHRQnISEe zFszs1bdJZA1CWCbB3T2dI Bju8ohGNuyGVZcaEA6gsbs GTdmOZIaquJ1uuhxOLisUY QrsIJ7mvteSIztDWWwPkL8 taahZBwyYOWbXDO6VIznq8 28FRW1MHtbYalsLSowYFEo bmNvbnRccGduZGVjXHBsYW luXHBsYWluXGYwXGZzMjRc jZoysGbasK9bHzQpXuHiED tyIY9qCTOuH3tadCTfRICn OKNvA2elVqMeyG7hpMbvHA atkhSrNGUifgJjci6wLO7j cGFyfQ== STATEMENT OF ADEQUACY Satisfactory (test code = 0520) Gross assessment was [facility] performed at ([facility], = 2777) Department of Pathology, [address] [place] [address], Technical component was [facility] performed at ([facility], = 0978) Department of Pathology, [address] [place] [address], Professional component [facility] was performed at ([facility], code = 2779) Department of Pathology, [address] [place] [address], [facility] 17:29:00Medical Cytology Report Case: [id number] Aut horizing Provider: Uriah Childs Collected: 02/15/2019 1226 Ordering Location: [address] Received: 02/15/2019 1529 Service Pathologist: Nereyda Causey MD Specimen: Common Bile Duct, Distal bile duct brushing in CRR COMMON BILE DUCT BRUSHING (CYTOSPINS AND CELL BLOCK): - MILDLY ATYPICAL CELLS PRESENT, FAVOR REACTIVE (SEE COMMENT) Signing Pathologist Direct Phone Line: [phone] signed by Nereyda Causey MD on 02/18/2019 at 5:29 PMFew mildly atypical cells are present and with the history of stent, a reactive process is favored. Clinical correlation is recommended.44494, 49728Podymmmt, a localized biliary stricture with upstream dilationCOMMON BILE DUCT LFAYYRSU87 mls in cytorich red; 2 cytospins, cell block (collodion bag)Collected: 317000Rzwpnwxp: 740512Eamrogsps.[facility], [facility] of Pathology, [address] [place] [address], [facility], [facility] of [facility]ology, [address] [place] [address], [facility], Department of Pathology, [address] [place] [address], Wvyescmr6257-01-14 14:54:00 Test Item Value Reference Range Interpretation Comments Ferritin (test code = 187 ng/mL 5-275 2276-4) ABAD (test code = ABAD) Account Advisor ID - LA Lab Interpretation (test Normal code = 18185-1) [facility] 14:54:00 Test Item Value Reference Range Interpretation Comments FERRITIN (BEAKER) (test code = 361) 187 ng/mL 5-275 Account Advisor ID - LACOMPREHENSIVE METABOLIC UDRSP6880-33-62 14:41:00 Test Item Value Reference Range Interpretation [...] S NOT APPLICABLE FOR DIALYSIS PATIEN TS. Account Advisor ID - FEB CSpecimen slightly ictericHEMOGLOBIN AND [id number] 12:27:00 Test Item Value Reference Range Interpretation Comments HEMOGLOBIN (BEAKER) (test code = 9.0 GM/DL 13.7-17.5 L 410) HEMATOCRIT (BEAKER) (test code = 29.6 % 40.1-51.0 L 411) Account Advisor ID - [id number] METABOLIC SLBLE9480-26-06 11:55:00 Test Item Value Reference Range Interpretation [...] S NOT APPLICABLE FOR DIALYSIS PATIEN TS. Account Advisor ID - [id number] slightly bmnrdmcDNQYPC2677-78-04 09:47:00 Test Item Value Reference Range Interpretation Comments LIPASE (BEAKER) (test code = 749) 72 U/L 6-51 H Account Advisor ID - [id number] slightly ictericIRON, TIBC, % SAT. (WITHOUT FERRITIN)2019-02-17 07:14:00 Test Item Value Reference Range Interpretation Comments IRON (BEAKER) (test code = 547) 15.0 ug/dL 40.0-160.0 L TOTAL IRON BINDING CAPACITY 124 ug/dL 250-450 L (BEAKER) (test code = 769) IRON % SATURATION (2) (BEAKER) 12 % 20-55 L (test code = 2590) Account Advisor ID - SOTERO MHEMOGLOBIN AND LNYXSDMFEM3205-79-01 06:32:00 Test Item Value Reference Range Interpretation Comments HEMOGLOBIN (BEAKER) (test code = 6.8 GM/DL 13.7-17.5 L 410) HEMATOCRIT (BEAKER) (test code = 22.3 % 40.1-51.0 L 411) Account Advisor ID - [id number]/Free T4 If Dkjyxmpwh5479-84-69 05:53:00 Test Item Value Reference Range Interpretation Comments TSH (test code = 77412-5) 2.31 0.35- 4.94 uIU/mL ABAD (test code = ABAD) Account Advisor ID - SOTERO M Lab Interpretation (test Normal code = 35055-2) [facility] HospitalVitamin B12 and Nykqyd7879-85-19 05:53:00 Test Item Value Reference Range Interpretation Comments Vitamin B12 (test code = 665 pg/mL 283-067 8786-9) Folate (test code = 12.3 ng/mL >=7.0 2284-8) ABAD (test code = ABAD) Account Advisor ID - SOTERO Lab Interpretation (test Normal code = 80610-2) [facility] HospitalTS/FREE T4 IF [id number] 05:53:00 Test Item Value Reference Range Interpretation Comments THYROID STIMULATING HORMONE 2.31 uIU/mL 0.35-4.94 (BEAKER) (test code = 772) Account Advisor ID - SOTERO MVITAMIN B12 AND CASYBU5357-19-67 05:53:00 Test Item Value Reference Range Interpretation Comments VITAMIN B12 (BEAKER) (test code = 665 pg/mL 213-816 774) FOLATE (BEAKER) (test code = 362) 12.3 ng/mL >=7.0 Account Advisor ID - SOTERO MCBC (HEMOGRAM ONLY)2019-02-17 04:42:00 [...] WBC 0-0 (BEAKER) (test code = 413) [id number] 12:25:00 Test Item Value Reference Range Interpretation Comments LIPASE (BEAKER) (test code = 749) 64 U/L 8-78 Account Advisor ID - CAROLINA FHEMOGLOBIN AND NYPBOVHFAM5487-47-85 10:31:00 Test Item Value Reference Range Interpretation Comments HEMOGLOBIN (BEAKER) (test code = 7.2 GM/DL 13.7-17.5 L 410) HEMATOCRIT (BEAKER) (test code = 24.0 % 40.1-51.0 L 411) Account Advisor ID - [id number], USTM1073-83-17 09:17:00Reason for exam:->jaundiceFINAL REPORT A fluoroscopic unit was utilized for a procedure performed in the operating room. No interpretation was requested. Please refer to the operative report regarding findings. Please refer to PACS for patient radiation dose information. Signed: Josef Maurer MDReport Verified Date/Time: 02/16/2019 09:17:37 Reading Location: [facility] B1 C013Y CT Body Reading Room [facility] ERCP 2019-02-16 09:17:00Interface, External Ris In - 02/16/2019 9:19 AM CSTFINAL REPORT A fluoroscopic unit was utilized for a procedure performed in the operating room. No interpretation was requested. Please refer to the operative report regarding findings. Please refer to PACS for patient radiationdose information. Signed: Josef Maurer MDReport Verified Date/Time: 02/16/2019 09:17:37 Reading Location: [facility] B1 C013Y CT [facility]2019-02-16 07:59:00 Test Item Value Reference [...] (BEAKER) (test code = 413) HEPATIC FUNCTION [id number] 05:15:00 Test Item Value Reference Range Interpretation [...] (test code = 23 U/L 6-55 347) Account Advisor ID - SOTERO MCOMPREHENSIVE METABOLIC ECCUT1091-99-38 05:14:00 Test Item Value Reference Range Interpretation [...] S NOT APPLICABLE FOR DIALYSIS PATIEN TS. Account Advisor ID - SOTERO MPT/WLCX1855-41-48 04:41:00 Test Item Value Reference Range Interpretation [...] is2.5-3.5 for patients wiht mechanical heart valves.PROTHROMBIN TIME/[id number] 04:40:00 Test Item Value Reference Range Interpretation [...] is2.5-3.5 for patients wiht mechanical heart valves.CYTOLOGY WWRLMOW8689-92-10 17:00:00 Test Item Value Reference Range Interpretation Comments Cytology (test code = See Separate Report 2609) [facility] [id number] 17:00:00 Test Item Value Reference Range Interpretation Comments CYTOLOGY RESULT POINTER See Separate Report (BEAKER) (test code = 2629) CBC W/PLT COUNT & AUTO [id number] 12:12:00 Test Item Value Reference Range Interpretation [...] (BEAKER) (test code = 2801) BASIC METABOLIC [id number] 10:22:00 Test Item Value Reference Range Interpretation [...] S NOT APPLICABLE FOR DIALYSIS PATIEN TS. Account Advisor ID Binu LAROSE FSpecimen slightly ictericHEPATIC FUNCTION PANEL 2019-02-15 10:22:00 [...] (test code = 29 U/L 6-55 347) Account Advisor ID Binu CONNERpecimen slightly ictericPT/[id number] 06:54:00 Test Item Value Reference Range Interpretation [...] is2.5-3.5 for patients wiht mechanical heart valves.PROTHROMBIN TIME/[id number] 06:53:00 Test Item Value Reference Range Interpretation [...] is2.5-3.5 for patients wiht mechanical heart valves.Manual Qsilvixpvqyu7150-26-38 11:17:00 Test Item Value Reference Range Interpretation [...] = 3438) ABAD (test code = ABAD) Account Advisor ID - Lorenzo Carr comments: Slide comments: Lab Interpretation (test Abnormal code = 28149-4) [facility] W/PLT COUNT & AUTO [id number] 11:17:00 Test Item Value Reference Range Interpretation [...] to report due WIDTH (BEAKER) (test to [facility] RBC code = 412) population [...] CONCENTRATION Adequate (CELLAVISION)(BEAKER) (test code = 3438) Account Advisor ID - Lorenzo Carr comments: Slide comments:HEPATIC [...] (test code = 40 U/L 6-55 347) Account Advisor ID - NTPSpecimen slightly ictericBASIC METABOLIC [id number] 10:09:00 Test Item Value Reference Range Interpretation [...] S NOT APPLICABLE FOR DIALYSIS PATIEN TS. Account Advisor ID - NTPSpecimen slightly ictericPT/TNPK8727-09-43 05:20:00 Test Item Value Reference Range Interpretation [...] is2.5-3.5 for patients wiht mechanical heart valves.PROTHROMBIN TIME/[id number] 05:19:00 Test Item Value Reference Range Interpretation [...] wiht mechanical heart valves.WOUND CULTURE + GRAM [id number] 13:08:00 Test Item Value Reference Interpretation Comments [...] (BEAKER) (test code = cocci in pairs 100061) 4+ Skin floraCOMPREHENSIVE METABOLIC [id number] 04:14:00 Test Item Value Reference Range Interpretation [...] TOTAL (test code = ALKP) COMPREHENSIVE METABOLIC [id number] 04:07:00 Test Item Value Reference Range Interpretation [...] Unit/L 50-136 code = ALKP) CBC W/AUTO [id number] 04:05:00 Test Item Value Reference Range Interpretation [...] = NO DIFF/SCN CRITERIA MDIFF) CBC W/AUTO [id number] 18:44:00 Test Item Value Reference Range Interpretation [...] = NO DIFF/SCN CRITERIA MDIFF) BASIC METABOLIC [id number] 07:26:00 Test Item Value Reference Range Interpretation [...] CA) 7.8 MG/DL 8.5-10.1 L CBC W/AUTO [id number] 07:19:00 Test Item Value Reference Range Interpretation [...] DIFF/SCN CRITERIA MDIFF) - CT ABD PELVIS W/[id number] 20:03:00 Name: FAVIOLA JN [facility] : 1990 Age/S: 28 / M [address] Unit #: [id number] Loc: [place] [address] Phys: Ramona Bahena MD Acct: [id number] Dis Date: Status: ADM IN PHONE #: [phone] Exam Date: 09/21/2018 1913 FAX #: Reason: hx of pa ncreatitis, CBD stent, abd pain, melena EXAMS: CPT: [id number] CT ABD PELVIS W/CONT 43481 Dictation [facility]: [facility] CT ABDOMEN AND PELVIS WITH IV CONTRAST [...] 1 Signed Report (CONTINUED) Name: FAVIOLA [place] [facility] : 1990 Age/S: 28 / M [address] Unit #: [id number] Loc: [place] [address] Phys: Ramona Bahena MD Acct: [id number] Dis Date: Status: ADM IN PHONE #: [phone] Exam Date: 09/21/2018 191 FAX #: Reason: hx of pancreatitis, CBD stent, abd pain, melena EXAMS: CPT: [id number] CT ABD PELVIS W/CONT 26996 <Continued> Interval mild thickening involving the sigmoid [...] and signed by: Shana Hooks M.D. CC: Ramona Bahena MD Technologist:Yvette Lugo RT(R)(CT) CTDI: DLP: Trnscb Date/Time: 09/21/2018 (2002) t.SDR.SP17 Orig Print D/T: S: 09/21/2018 (2005) PAGE 2 Signed ReportUA RFLX MICR CULT IF [id number] 19:45:00 Test Item Value Reference Range Interpretation [...] culture: Suprapubic PainUA RFLX MICR CULT IF [id number] 19:37:00 Test Item Value Reference Range Interpretation [...] CLEAN CATCHIndication for culture: Suprapubic PainLACTIC ACID [id number] 19:14:00 Test Item Value Reference Range Interpretation Comments LACTIC ACID POC (test code = 0.57 MMOL/L 0.90-1.70 L LACTP) BASIC METABOLIC [id number] 18:25:00 Test Item Value Reference Range Interpretation [...] CA) 8.6 MG/DL 8.5-10.1 N HEPATIC FUNCTION [id number] 18:25:00 Test Item Value Reference Range Interpretation [...] 160 Unit/L 50-136 H code = ALKP) [id number] 18:25:00 Test Item Value Reference Range Interpretation Comments LIPASE (test code = LIP) 164 Unit/L 114-286 N BASIC METABOLIC [id number] 18:22:00 Test Item Value Reference Range Interpretation [...] CA) 8.6 MG/DL 8.5-10.1 N HEPATIC FUNCTION [id number] 18:22:00 Test Item Value Reference Range Interpretation [...] TOTAL (test Unit/L 50-136 code = ALKP) [id number] 18:22:00 Test Item Value Reference Range Interpretation Comments LIPASE (test code = LIP) 164 Unit/L 114-286 N PROTHROMBIN [id number] 18:17:00 Test Item Value Reference Range Interpretation Comments PT PATIENT (test code = PTP) 15.7 SECONDS 9.3-12.9 H INTERNATIONAL NORMAL RATIO 1.36 INR Unit 0.8-1.2 H (test code = INR) THROMBOPLASTIN TIME [id number] 18:17:00 Test Item Value Reference Range Interpretation Comments THROMBOPLASTIN TIME PARTIAL 39.7 SECONDS 26-35 H (test code = PTT) CBC W/O [id number] 18:08:00 Test Item Value Reference Range Interpretation [...] 7.0-9.6 H MPV) - CT ABD PELVIS W/[id number] 19:34:00 Name: FAVIOLA [place] [facility] : 1990 Age/S: 28 / M [address] Unit #: [id number] Loc: [place] [address] Phys: Pola Brush MD Acct: [id number] Dis Date: Status: REG ER PHONE #: [phone] Exam Date: 09/11/2018 8117 FAX #: Reason: abdominal pain EXAMS: CPT: [id number] CT ABD PELVIS W/CONT 79019 EXAM: CT ABDOMEN AND PELVIS WITH IV [...] 1 Signed Report (CONTINUED) Name: FAVIOLA NJ [facility] [place] : 1990 Age/S: 28 / M [address] [facility] [address] [place] Unit #: [id number] Loc: [place] [address] Phys: Pola Brush MD Acct: [id number] Dis Date: Status: REG ER PHONE #: [phone] Exam Date: 09/11/2018 3143 FAX #: Reason: abdominal pain EXAMS: CPT: [id number] CT ABD PELVIS W/CONT 66752 <Continued> are unremarkable. Gastrointestinal: No bowel obstruction [...] Carmona, RT(R)(CT) CTDI: DLP: Trnscb Date/Time: 09/11/2018 (193) t.SDR.CLW Orig Print D/T: S: 09/11/2018 (1936) PAGE 2 Signed ReportUA RFLX MICR CULT IF [id number] 19:30:00 Test Item Value Reference Range Interpretation [...] for culture: Dysuria/FrequencyUA RFLX MICR CULT IF [id number] 19:30:00 Test Item Value Reference Range Interpretation [...] URINE: CLEAN CATCHIndication for culture: Dysuria/FrequencyBASIC METABOLIC [id number] 18:14:00 Test Item Value Reference Range Interpretation [...] CA) 8.4 MG/DL 8.5-10.1 L HEPATIC FUNCTION [id number] 18:14:00 Test Item Value Reference Range Interpretation [...] 168 Unit/L 50-136 H code = ALKP) [id number] 18:14:00 Test Item Value Reference Range Interpretation Comments LIPASE (test code = LIP) 260 Unit/L 114-286 N BASIC METABOLIC [id number] 18:06:00 Test Item Value Reference Range Interpretation [...] CA) 8.4 MG/DL 8.5-10.1 L HEPATIC FUNCTION [id number] 18:06:00 Test Item Value Reference Range Interpretation [...] TOTAL (test code Unit/L 50-136 = ALKP) [id number] 18:06:00 Test Item Value Reference Range Interpretation Comments LIPASE (test code = LIP) Unit/L 114-286 CBC W/AUTO [id number] 18:02:00 Test Item Value Reference Range Interpretation [...] code = NO DIFF/SCN CRITERIA MDIFF) PROTHROMBIN [id number] 18:02:00 Test Item Value Reference Range Interpretation Comments PT PATIENT (test code = PTP) 16.2 SECONDS 9.3-12.9 H INTERNATIONAL NORMAL RATIO 1.40 INR Unit 0.8-1.2 H (test code = INR) THROMBOPLASTIN TIME [id number] 18:02:00 Test Item Value Reference Range Interpretation Comments THROMBOPLASTIN TIME PARTIAL 30.7 SECONDS 26-35 N (test code = PTT) BLOOD [id number] 02:01:00 Test Item Value Reference Range Interpretation Comments CULTURE (BEAKER) (test No growth in 5 days code = 1095) BLOOD [id number] 20:01:00 Test Item Value Reference Range Interpretation Comments CULTURE (BEAKER) (test No growth in 5 days code = 1095) CBC W/PLT COUNT & AUTO [id number] 05:36:00 Test Item Value Reference Range Interpretation [...] PERCENT (BEAKER) (test code = 2801) TISSUE [id number] 15:04:00Surgical Pathology Report Case: [id number] Authorizing Provider: Maliha Gotti MD Collected: 08/29/2018 0932 Ordering Location: [place] [address] ICU Received: 08/29/2018 1318 Pathologist: James Stringer MD Specimen: Polyp, Colon - Transverse, taken by yahaira MCNEAL A TRANSVERSE COLON BIOPSY FOR SUSPECTED POLYP:INFLAMMATORY PSEUDOPOLYP. Signing Pathologist Direct Phone Line: [phone] signed by James Stringer MD on 08/30/2018 at 3:04 PMImmunostains for CMV, HSV1, and HSV2 performed on block A1 are negative.11459, 21514, 21694J9Uwh and postop diagnosis: gastrointestinal hemorrhage, unspecified gastrointestinal hemorrhage type Polyp, colon - tr ansverse Received in formalin labeled with the patient's name, accession number and "polyp, colon - transverse" is a 0.2 cm york soft tissue fragment which is submitted in toto in A1. CG/pl PERFORMED. The interpretation of this case included the use of immunohistochemistry or special stains.BLOCK A1- CMV, HSV1, RBS1[place] Slides Examined: In-house known positive controls were evaluated along withthe test tissue. These control slides run alongside of the patients sample show appropriate staining. Internal positive and negative controls when available are evaluated Immunohistochemistry technical testing was performed at [facility], Pathology Laboratory where it was developed [...] perform high complexity clinical laboratory testing.HEMOGLOBIN AND [id number] 12:44:00 Test Item Value Reference Range Interpretation Comments HEMOGLOBIN (BEAKER) (test code = 7.7 GM/DL 13.7-17.5 L 410) HEMATOCRIT (BEAKER) (test code = 25.1 % 40.1-51.0 L 411) BASIC METABOLIC [id number] 07:28:00 Test Item Value Reference Range Interpretation [...] S NOT APPLICABLE FOR DIALYSIS PATIEN TS. [id number] 07:13:00 Test Item Value Reference Range Interpretation Comments PHOSPHORUS (BEAKER) (test code = 3.7 mg/dL 2.3-4.7 604) [id number] 07:13:00 Test Item Value Reference Range Interpretation Comments MAGNESIUM (BEAKER) (test code = 2.0 mg/dL 1.6-2.6 627) HEPATIC FUNCTION [id number] 07:13:00 Test Item Value Reference Range Interpretation [...] 6-55 347) CBC W/PLT COUNT & AUTO [id number] 05:45:00 Test Item Value Reference Range Interpretation [...] 0-1 PERCENT (BEAKER) (test code = 2801) [id number] 06:28:00 Test Item Value Reference Range Interpretation Comments PHOSPHORUS (BEAKER) (test code = 4.0 mg/dL 2.3-4.7 604) [id number] 06:28:00 Test Item Value Reference Range Interpretation Comments MAGNESIUM (BEAKER) (test code = 1.9 mg/dL 1.6-2.6 627) HEPATIC FUNCTION [id number] 06:28:00 Test Item Value Reference Range Interpretation [...] = 7 U/L 6-55 347) BASIC METABOLIC [id number] 06:28:00 Test Item Value Reference Range Interpretation [...] PATIEN TS. CBC W/PLT COUNT & AUTO [id number] 05:15:00 Test Item Value Reference Range Interpretation [...] (BEAKER) (test code = 2801) HEMOGLOBIN AND [id number] 16:50:00 Test Item Value Reference Range Interpretation Comments HEMOGLOBIN (BEAKER) (test code = 7.8 GM/DL 13.7-17.5 L 410) HEMATOCRIT (BEAKER) (test code = 24.5 % 40.1-51.0 L 411) TROPONIN [id number] 07:07:00 Test Item Value Reference Range Interpretation [...] failure, acidosis, acute neurological disease, and persistent tachyarrhythmia.[id number] 07:04:00 Test Item Value Reference Range Interpretation Comments PHOSPHORUS (BEAKER) (test code = 3.0 mg/dL 2.3-4.7 604) [id number] 07:04:00 Test Item Value Reference Range Interpretation Comments MAGNESIUM (BEAKER) (test code = 1.7 mg/dL 1.6-2.6 627) BASIC METABOLIC [id number] 07:04:00 Test Item Value Reference Range Interpretation [...] APPLICABLE FOR DIALYSIS PATIEN TS. LACTIC ACID, [id number] 06:58:00 Test Item Value Reference Range Interpretation Comments LACTATE BLOOD VENOUS (2) (BEAKER) 0.7 mmol/L 0.5-2.2 (test code = 2872) HEMOGLOBIN AND [id number] 06:44:00 Test Item Value Reference Range Interpretation Comments HEMOGLOBIN (BEAKER) (test code = 8.2 GM/DL 13.7-17.5 L 410) HEMATOCRIT (BEAKER) (test code = 25.9 % 40.1-51.0 L 411) CBC W/PLT COUNT & AUTO [id number] 06:44:00 Test Item Value Reference Range Interpretation [...] PERCENT (BEAKER) (test code = 2801) TROPONIN [id number] 00:41:00 Test Item Value Reference Range Interpretation [...] acute neurological disease, and persistent tachyarrhythmia.HEMOGLOBIN AND [id number] 00:22:00 Test Item Value Reference Range Interpretation Comments HEMOGLOBIN (BEAKER) (test code = 5.9 GM/DL 13.7-17.5 LL 410) HEMATOCRIT (BEAKER) (test code = 18.8 % 40.1-51.0 L 411) RAD, CHEST, 1 VIEW, NON [id number] 21:37:00Reason for exam:->r/o pulm edemaShould this be [...] Left lower lobe subsegmental atelectasis. Signed: Debbie Castilloeport Verified Date/Time: 08/27/2018 21:37:05 Reading Location: [place] [address]W Consult Reading Room ALYSIS W/ REFLEX URINE [id number] 20:28:00 Test Item Value Reference Range Interpretation [...] Rare SOURCE(BEAKER) (test code = 2795) TROPONIN [id number] 19:29:00 Test Item Value Reference Range Interpretation [...] acute neurological disease, and persistent tachyarrhythmia.COMPREHENSIVE METABOLIC [id number] 19:21:00 Test Item Value Reference Range Interpretation [...] S NOT APPLICABLE FOR DIALYSIS PATIEN TS. [id number] 19:09:00 Test Item Value Reference Range Interpretation Comments PHOSPHORUS (BEAKER) (test code = 3.6 mg/dL 2.3-4.7 604) [id number] 19:09:00 Test Item Value Reference Range Interpretation Comments MAGNESIUM (BEAKER) (test code = 1.8 mg/dL 1.6-2.6 627) LACTIC ACID, [id number] 19:03:00 Test Item Value Reference Range Interpretation Comments LACTATE BLOOD VENOUS (2) (BEAKER) 0.9 mmol/L 0.5-2.2 (test code = 2872) PROTHROMBIN TIME/[id number] 18:53:00 Test Item Value Reference Range Interpretation [...] INR is2.5-3.5 for patients wiht mechanical heart valves.[id number] 18:53:00 Test Item Value Reference Range Interpretation Comments FIBRINOGEN LEVEL (BEAKER) (test 418 mg/dl 225-434 code = 658) CBC W/PLT COUNT & AUTO [id number] 18:48:00 Test Item Value Reference Range Interpretation [...] (BEAKER) (test code = 2801) HEMOGLOBIN AND [id number] 18:44:00 Test Item Value Reference Range Interpretation Comments HEMOGLOBIN (BEAKER) (test code = 6.3 GM/DL 13.7-17.5 L 410) HEMATOCRIT (BEAKER) (test code = 20.6 % 40.1-51.0 L 411) CBC W/PLT COUNT & AUTO [id number] 07:00:00 Test Item Value Reference Range Interpretation [...] PERCENT (BEAKER) (test code = 2801) CALCIUM, [id number] 06:20:00 Test Item Value Reference Range Interpretation Comments CALCIUM IONIZED (BEAKER) (test 1.01 mmol/L 1.12-1.27 L code = 698) PH, BLOOD (BEAKER) (test code = 7.50 1810) COMPREHENSIVE METABOLIC [id number] 06:16:00 Test Item Value Reference Range Interpretation [...] NOT APPLICABLE FOR DIALYSIS PATIEN TS. BLOOD [id number] 20:01:00 Test Item Value Reference Range Interpretation Comments CULTURE (BEAKER) (test No growth in 5 days code = 1095) [id number] 06:17:00 Test Item Value Reference Range Interpretation Comments PHOSPHORUS (BEAKER) (test code = 3.5 mg/dL 2.3-4.7 604) [id number] 06:17:00 Test Item Value Reference Range Interpretation Comments MAGNESIUM (BEAKER) (test code = 1.3 mg/dL 1.6-2.6 L 627) BASIC METABOLIC [id number] 06:17:00 Test Item Value Reference Range Interpretation [...] NOT APPLICABLE FOR DIALYSIS PATIEN TS. CALCIUM, [id number] 05:40:00 Test Item Value Reference Range Interpretation Comments CALCIUM IONIZED (BEAKER) (test 1.02 mmol/L 1.12-1.27 L code = 698) PH, BLOOD (BEAKER) (test code = 7.50 1810) CBC W/PLT COUNT & AUTO [id number] 05:32:00 Test Item Value Reference Range Interpretation [...] (BEAKER) (test code = 2801) COMPREHENSIVE METABOLIC [id number] 07:10:00 Test Item Value Reference Range Interpretation [...] S NOT APPLICABLE FOR DIALYSIS PATIEN TS. [id number] 06:50:00 Test Item Value Reference Range Interpretation Comments MAGNESIUM (BEAKER) (test code = 1.0 mg/dL 1.6-2.6 LL 627) COMPREHENSIVE METABOLIC [id number] 06:33:00 Test Item Value Reference Range Interpretation [...] S NOT APPLICABLE FOR DIALYSIS PATIEN TS. [id number] 06:31:00 Test Item Value Reference Range Interpretation Comments PHOSPHORUS (BEAKER) (test code = 3.3 mg/dL 2.3-4.7 604) CBC W/PLT COUNT & AUTO [id number] 06:23:00 Test Item Value Reference Range Interpretation [...] (BEAKER) (test code = 2801) LACTIC ACID, [id number] 06:22:00 Test Item Value Reference Range Interpretation Comments LACTATE BLOOD VENOUS (2) (BEAKER) 0.8 mmol/L 0.5-2.2 (test code = 2872) CALCIUM, [id number] 06:18:00 Test Item Value Reference Range Interpretation Comments CALCIUM IONIZED (BEAKER) (test 1.01 mmol/L 1.12-1.27 L code = 698) PH, BLOOD (BEAKER) (test code = 7.46 1810) U/S, ABDOMINAL, [id number] 16:51:00Abdomen limited area? Add comment if clarification [...] MDReport Verified Date/Time: 07/28/2018 16:51:39 Reading Location: [address] Consult Reading Room [id number] 06:56:00 Test Item Value Reference Range Interpretation Comments PHOSPHORUS (BEAKER) (test code = 2.6 mg/dL 2.3-4.7 604) [id number] 06:56:00 Test Item Value Reference Range Interpretation Comments MAGNESIUM (BEAKER) (test code = 1.5 mg/dL 1.6-2.6 L 627) BASIC METABOLIC [id number] 06:56:00 Test Item Value Reference Range Interpretation [...] APPLICABLE FOR DIALYSIS PATIEN TS. LACTIC ACID, [id number] 06:49:00 Test Item Value Reference Range Interpretation Comments LACTATE BLOOD VENOUS (2) (BEAKER) 0.7 mmol/L 0.5-2.2 (test code = 2872) CBC W/PLT COUNT & AUTO [id number] 06:31:00 Test Item Value Reference Range Interpretation [...] 0-1 PERCENT (BEAKER) (test code = 2801) [id number] 17:59:00 Test Item Value Reference Range Interpretation Comments PHOSPHORUS (BEAKER) (test code = 3.4 mg/dL 2.3-4.7 604) Check Serum Phosphorus level 4 hours after IV phosphorus replacement or 8 hours after PO replacementcompleted.[id number] 17:59:00 Test Item Value Reference Range Interpretation Comments MAGNESIUM (BEAKER) (test code = 1.7 mg/dL 1.6-2.6 627) Check Serum Phosphorus level 4 hours after IV phosphorus replacement or 8 hours after PO replacementcompleted.[id number] 04:50:00 Test Item Value Reference Range Interpretation Comments PHOSPHORUS (BEAKER) (test code = 1.8 mg/dL 2.3-4.7 L 604) [id number] 04:50:00 Test Item Value Reference Range Interpretation Comments MAGNESIUM (BEAKER) (test code = 1.4 mg/dL 1.6-2.6 L 627) BASIC METABOLIC [id number] 04:50:00 Test Item Value Reference Range Interpretation [...] PATIEN TS. CBC W/PLT COUNT & AUTO [id number] 04:45:00 Test Item Value Reference Range Interpretation [...] PERCENT (BEAKER) (test code = 2801) FL, [id number] 22:28:00Reason for exam:->bile duct stent removalFINAL REPORT Examination: ERCP 4 fluoroscopic spot views were obtained during the procedure by the ordering service. Images are nondiagnostic as no radiologist was present at the time of imaging. Fluoroscopic time was 49.6 seconds. Please see the procedure report for details. Signed: Rosalia Golden MDReport Verified Date/Time: 07/26/2018 22:28:43 Reading Location: [address] Reading Room POCT-GLUCOSE [id number] 20:43:00 Test Item Value Reference Range Interpretation Comments POC-GLUCOSE METER 146 mg/dL 70-110 H TESTED AT [facility] 6720 ([facility]) (test code = [facility] 1538) [address] RAPID STREP A [id number] 18:22:00 Test Item Value Reference Range Interpretation Comments STREP A ANTIGEN (BEAKER) (test code Negative = 556) COMPREHENSIVE METABOLIC [id number] 17:37:00 Test Item Value Reference Range Interpretation [...] PATIEN TS. CBC W/PLT COUNT & AUTO [id number] 17:16:00 Test Item Value Reference Range Interpretation [...] PERCENT (BEAKER) (test code = 2801) POCT-GLUCOSE [id number] 12:06:00 Test Item Value Reference Range Interpretation Comments POC-GLUCOSE METER 132 mg/dL 70-110 H TESTED AT [place] [address] ([facility]) (test code = [facility] 1538) [address] POCT-GLUCOSE [id number] 08:57:00 Test Item Value Reference Range Interpretation Comments POC-GLUCOSE METER 80 mg/dL 70-110 TESTED AT [place] [address] ([facility]) (test code = [facility] [address] 1538) BASIC METABOLIC [id number] 06:35:00 Test Item Value Reference Range Interpretation [...] NOT APPLICABLE FOR DIALYSIS PATIEN TS. POCT-GLUCOSE [id number] 22:36:00 Test Item Value Reference Range Interpretation Comments POC-GLUCOSE METER 72 mg/dL 70-110 TESTED AT [place] [address] ([facility]) (test code = [facility] [address] 1538) POCT-GLUCOSE [id number] 12:21:00 Test Item Value Reference Range Interpretation Comments POC-GLUCOSE METER 82 mg/dL 70-110 TESTED AT [place] [address] ([facility]) (test code = [facility] [address] 1538) BASIC METABOLIC [id number] 09:30:00 Test Item Value Reference Range Interpretation [...] NOT APPLICABLE FOR DIALYSIS PATIEN TS. POCT-GLUCOSE [id number] 08:42:00 Test Item Value Reference Range Interpretation Comments POC-GLUCOSE METER 85 mg/dL 70-110 TESTED AT [place] [address] ([facility]) (test code = [facility] [address] 1538) POCT-GLUCOSE [id number] 21:33:00 Test Item Value Reference Range Interpretation Comments POC-GLUCOSE METER 106 mg/dL 70-110 TESTED AT [place] [address] (BEAKER) (test code = [facility] 1538) [address] POCT-GLUCOSE [id number] 17:42:00 Test Item Value Reference Range Interpretation Comments POC-GLUCOSE METER 95 mg/dL 70-110 TESTED AT [place] [address] (BEAKER) (test code = [facility] [address] 1538) [id number] 14:42:00 Test Item Value Reference Range Interpretation Comments POTASSIUM (BEAKER) 3.7 meq/L 3.5-5.1 Specimen slightly (test code = 379) hemolyzed Check Serum Potassium level 2 hours after oral potassium replacement completed or 30 min after intravenous potassium replacement.POCT-GLUCOSE [id number] 11:45:00 Test Item Value Reference Range Interpretation Comments POC-GLUCOSE METER 151 mg/dL 70-110 H TESTED AT [place] [address] ([facility]) (test code = [facility] 1538) [address] POCT-GLUCOSE [id number] 09:45:00 Test Item Value Reference Range Interpretation Comments POC-GLUCOSE METER 127 mg/dL 70-110 H TESTED AT [place] [address] ([facility]) (test code = [facility] 1538) [address] BLOOD [id number] 08:00:00 Test Item Value Reference Range Interpretation Comments CULTURE (BEAKER) (test No growth in 5 days code = 1095) BLOOD [id number] 08:00:00 Test Item Value Reference Range Interpretation Comments CULTURE (BEAKER) (test No growth in 5 days code = 1095) BASIC METABOLIC [id number] 06:48:00 Test Item Value Reference Range Interpretation [...] = 358) GLUCOSE RANDOM 88 mg/dL 70-105 ([facility]) (test code = 652) CALCIUM (BEAKER) 7.9 mg/dL 8.4-10.2 L (test code = 697) EGFR (BEAKER) (test 156 mL/min/1.73 ESTIM ATED GFR IS code = 1092) sq m NOT ACCURATE CREATININE CLEARANCE IN PREDICTING GLOMERULAR FILTRATION RATE . ESTIMATED GFR I S NOT APPLICABLE FOR DIALYSIS PATIEN TS. [id number] 06:46:00 Test Item Value Reference Range Interpretation Comments PHOSPHORUS (BEAKER) (test code = 3.5 mg/dL 2.3-4.7 604) [id number] 06:46:00 Test Item Value Reference Range Interpretation Comments MAGNESIUM (BEAKER) (test code = 1.7 mg/dL 1.6-2.6 627) CALCIUM, [id number] 06:45:00 Test Item Value Reference Range Interpretation Comments CALCIUM IONIZED ([facility]) (test 1.00 mmol/L 1.12-1.27 L code = 698) PH, BLOOD ([facility]) (test code = 7.52 1810) POCT-GLUCOSE [id number] 21:56:00 Test Item Value Reference Range Interpretation Comments POC-GLUCOSE METER 112 mg/dL 70-110 H TESTED AT [place] [address] ([facility]) (test code = [facility] 1538) [address] POCT-GLUCOSE [id number] 17:46:00 Test Item Value Reference Range Interpretation Comments POC-GLUCOSE METER 86 mg/dL 70-110 TESTED AT [place] [address] ([facility]) (test code = [facility] [address] 1538) POCT-GLUCOSE [id number] 11:20:00 Test Item Value Reference Range Interpretation Comments POC-GLUCOSE METER 164 mg/dL 70-110 H TESTED AT [place] [address] ([facility]) (test code = [facility] 1538) [address] POCT-GLUCOSE [id number] 08:57:00 Test Item Value Reference Range Interpretation Comments POC-GLUCOSE METER 88 mg/dL 70-110 TESTED AT [place] [address] ([facility]) (test code = [facility] [address] 1538) CALCIUM, [id number] 05:14:00 Test Item Value Reference Range Interpretation Comments CALCIUM IONIZED (BEAKER) (test 1.12 mmol/L 1.12-1.27 code = 698) PH, BLOOD (BEAKER) (test code = 7.43 1810) BASIC METABOLIC [id number] 04:59:00 Test Item Value Reference Range Interpretation [...] S NOT APPLICABLE FOR DIALYSIS PATIEN TS. [id number] 04:57:00 Test Item Value Reference Range Interpretation Comments MAGNESIUM (BEAKER) (test code = 1.8 mg/dL 1.6-2.6 627) [id number] 04:56:00 Test Item Value Reference Range Interpretation Comments PHOSPHORUS (BEAKER) (test code = 3.4 mg/dL 2.3-4.7 604) [id number] 04:54:00 Test Item Value Reference Range Interpretation [...] is2.5-3.5 for patients wiht mechanical heart valves.PROTHROMBIN TIME/[id number] 04:52:00 Test Item Value Reference Range Interpretation [...] mechanical heart valves.CBC W/PLT COUNT & AUTO [id number] 04:47:00 Test Item Value Reference Range Interpretation [...] PERCENT (BEAKER) (test code = 2801) POCT-GLUCOSE [id number] 22:08:00 Test Item Value Reference Range Interpretation Comments POC-GLUCOSE METER 133 mg/dL 70-110 H TESTED AT [place] [address] ([facility]) (test code = [facility] 1538) [address] POCT-GLUCOSE [id number] 18:34:00 Test Item Value Reference Range Interpretation Comments POC-GLUCOSE METER 151 mg/dL 70-110 H TESTED AT [place] [address] ([facility]) (test code = [facility] 1538) [address] POCT-GLUCOSE [id number] 12:29:00 Test Item Value Reference Range Interpretation Comments POC-GLUCOSE METER 124 mg/dL 70-110 H TESTED AT [place] [address] ([facility]) (test code = [facility] 1538) [address] RAD, CHEST, 1 VIEW, NON [id number] 10:57:00Reason for exam:->SOBShould this be performed at [...] MDReport Verified Date/Time: 07/15/2018 10:57:23 Reading Location: [facility] Radiology Reading Room C. DIFFICILE GDH [id number] 10:08:00 Test Item Value Reference Range Interpretation Comments CDT TOXIN (test code Negative Negative = [id number]) CDT GDH ANTIGEN (test Negative Negative No ind ication of code = [id number]) Clostridi um difficile infection and n o colonization. Discontinue ent sonal isolation and t herapy. Testing performed by [employer] Rapid Cassette Assay. For GDH, published sensitivity of the assay is 98.7% compared to cytotoxicity testing. For Toxin AB, published sensitivity is 87.8% and specificity 99.4% compared to cytotoxicity testing.Verification of kit performance was done by the [facility] Microbiology Lab prior to clinical use.POCT-GLUCOSE [id number] 08:57:00 Test Item Value Reference Range Interpretation Comments POC-GLUCOSE METER 159 mg/dL 70-110 H TESTED AT [facility] 6720 (BEAKER) (test code = [facility] 1538) [address] BLOOD [id number] 08:01:00 Test Item Value Reference Range Interpretation Comments CULTURE (BEAKER) (test No growth in 5 days code = 1095) BLOOD [id number] 08:01:00 Test Item Value Reference Range Interpretation Comments CULTURE (BEAKER) (test No growth in 5 days code = 1095) BASIC METABOLIC [id number] 04:49:00 Test Item Value Reference Range Interpretation [...] S NOT APPLICABLE FOR DIALYSIS PATIEN TS. [id number] 04:29:00 Test Item Value Reference Range Interpretation Comments PHOSPHORUS (BEAKER) (test code = 2.7 mg/dL 2.3-4.7 604) [id number] 04:29:00 Test Item Value Reference Range Interpretation Comments MAGNESIUM (BEAKER) (test code = 2.2 mg/dL 1.6-2.6 627) CBC W/PLT COUNT & AUTO [id number] 04:14:00 Test Item Value Reference Range Interpretation [...] % 0-1 PERCENT (BEAKER) (test code = 2800) CALCIUM, [id number] 03:58:00 Test Item Value Reference Range Interpretation Comments CALCIUM IONIZED (BEAKER) (test 1.11 mmol/L 1.12-1.27 L code = 698) PH, BLOOD (BEAKER) (test code = 7.41 1810) POCT-GLUCOSE [id number] 23:20:00 Test Item Value Reference Range Interpretation Comments POC-GLUCOSE METER 208 mg/dL 70-110 H TESTED AT [facility] 6720 (BEAKER) (test code = [facility] 1535) [address] BASIC METABOLIC [id number] 18:01:00 Test Item Value Reference Range Interpretation [...] S NOT APPLICABLE FOR DIALYSIS PATIEN TS. [id number] 18:00:00 Test Item Value Reference Range Interpretation Comments TRIGLYCERIDES (BEAKER) (test code = 125 mg/dL 540) TRIGLYCERIDE REFERENCE RANGELow Risk <150Borderline Risk 150-199High Risk 200-499Very High Risk>=[id number] 18:00:00 Test Item Value Reference Range Interpretation Comments MAGNESIUM (BEAKER) (test code = 1.6 mg/dL 1.6-2.6 627) CALCIUM, [id number] 17:46:00 Test Item Value Reference Range Interpretation Comments CALCIUM IONIZED (BEAKER) (test 1.13 mmol/L 1.12-1.27 code = 698) PH, BLOOD (BEAKER) (test code = 7.41 1810) POCT-GLUCOSE [id number] 17:45:00 Test Item Value Reference Range Interpretation Comments POC-GLUCOSE METER 173 mg/dL 70-110 H TESTED AT [facility] 6720 (BEAKER) (test code = [facility] [place] 1538) [address] POCT-GLUCOSE [id number] 11:46:00 Test Item Value Reference Range Interpretation Comments POC-GLUCOSE METER 163 mg/dL 70-110 H TESTED AT [facility] 6720 (BEAKER) (test code = [facility] [place] 1538) [address] BASIC METABOLIC [id number] 09:43:00 Test Item Value Reference Range Interpretation [...] APPLICABLE FOR DIALYSIS PATIEN TS. HEPATIC FUNCTION [id number] 09:43:00 Test Item Value Reference Range Interpretation [...] = < U/L 6-55 L 347) CALCIUM, [id number] 09:39:00 Test Item Value Reference Range Interpretation Comments CALCIUM IONIZED (BEAKER) (test 1.07 mmol/L 1.12-1.27 L code = 698) PH, BLOOD (BEAKER) (test code = 7.44 1810) [id number] 09:26:00 Test Item Value Reference Range Interpretation Comments PHOSPHORUS (BEAKER) (test code = 2.3 mg/dL 2.3-4.7 604) [id number] 09:26:00 Test Item Value Reference Range Interpretation Comments MAGNESIUM (BEAKER) (test code = 1.2 mg/dL 1.6-2.6 L 627) CBC W/PLT COUNT & AUTO [id number] 09:07:00 Test Item Value Reference Range Interpretation [...] code = 416) BASOPHILS ABSOLUTE COUNT (AKER) 0.01 K/ L 0.01-0.08 (test code = 417) IMMATURE GRANULOCYTES-RELATIVE 1 % 0-1 PERCENT ([facility]) (test code = 2801) POCT-GLUCOSE [id number] 06:10:00 Test Item Value Reference Range Interpretation Comments POC-GLUCOSE METER 170 mg/dL 70-110 H TESTED AT [facility] 67 ([facility]) (test code = [facility] 1538) [address] POCT-GLUCOSE [id number] 23:12:00 Test Item Value Reference Range Interpretation Comments POC-GLUCOSE METER 200 mg/dL 70-110 H TESTED AT [place] [address] ([facility]) (test code = [facility] 1538) [address] POCT-GLUCOSE [id number] 18:28:00 Test Item Value Reference Range Interpretation Comments POC-GLUCOSE METER 153 mg/dL 70-110 H TESTED AT [place] [address] ([facility]) (test code = [facility] 1538) [address] RAD, CHEST, 1 VIEW, NON [id number] 17:19:00Reason for exam:->post central lineShould this be [...] the right atrium withno pneumothorax. Signed: Perez Huertaort Verified Date/Time: 07/13/2018 17:19:17 Reading Location: [address] Consult Reading Room POCT- GLUCOSE [id number] 11:45:00 Test Item Value Reference Range Interpretation Comments POC-GLUCOSE METER 214 mg/dL 70-110 H TESTED AT [facility] 6720 ([place]) (test code = [facility] 1538) [address] CT, [id number] 09:34:00NO PO or IV contrastFINAL REPORT CT [...] be related to an enteritis. Signed: Perez Huertaeport Verified Date/Time: 07/13/2018 09:34:48 Reading Location: [facility] C013X Ortho Consult Reading Room POCT-GLUCOSE [id number] 06:40:00 Test Item Value Reference Range Interpretation Comments POC-GLUCOSE METER 189 mg/dL 70-110 H TESTED AT [place] [address] ([facility]) (test code = [facility] [place] 1538) [address] RAD, CHEST, 1 VIEW, NON [id number] 01:21:00Reason for exam:->hypoxia, feverShould this be performed [...] MDReport Verified Date/Time: 07/13/2018 01:21:43 Reading Location: [address] Reading Room RAD, CHEST, 1 VIEW, NON [id number] 00:42:00Reason for exam:- >tachycardiaShould this be performed [...] METER 139 mg/dL 70-110 H TESTED AT [place] [address] ([facility]) (test code = [facility] 1538) [address] POCT-GLUCOSE [id number] 18:37:00 Test Item Value Reference Range Interpretation Comments POC-GLUCOSE METER 108 mg/dL 70-110 TESTED AT [place] [address] ([facility]) (test code = [facility] 1538) [address] LACTIC ACID, [id number] 17:04:00 Test Item Value Reference Range Interpretation Comments LACTATE BLOOD VENOUS (2) ([facility]) 0.7 mmol/L 0.5-2.2 (test code = 2872) POCT-GLUCOSE [id number] 13:25:00 Test Item Value Reference Range Interpretation Comments POC-GLUCOSE METER 129 mg/dL 70-110 H TESTED AT [place] [address] ([facility]) (test code = [facility] 1538) [address] POCT-GLUCOSE [id number] 10:27:00 Test Item Value Reference Range Interpretation Comments POC-GLUCOSE METER 109 mg/dL 70-110 TESTED AT [place] [address] ([facility]) (test code = [facility] 1538) [address]68 LACTIC ACID, [id number] 07:03:00 Test Item Value Reference Range Interpretation Comments LACTATE BLOOD VENOUS 0.9 mmol/L 0.5-2.2 Specime n slightly (2) ([facility]) (test hemolyzed code = 2872) RAD, ABDOMEN/KUB, 1 VIEW [id number] 02:12:00Reason for exam:->UPRIGHT assess for perf; abdomoinal [...] setting. Small left pleuraleffusion. Signed: Lu Darden MDReport Verified Date/Time: 07/12/2018 02:12:57 POCT-LACTIC ACID, [id number] 02:11:00 Test Item Value Reference Range Interpretation Comments POC-LACTIC ACID, 1.5 mmol/L 0.9-1.7 TESTED AT [place] [address] VENOUS ([facility]) (test [facility] code = 2805) [address] [id number] 02:11:00 Test Item Value Reference Range Interpretation Comments POC-GLUCOSE ([facility]) 106 mg/dL 70-110 TESTED AT [place] [address] (test code = 1855) [facility] [address] POCT-CALCIUM [id number] 02:11:00 Test Item Value Reference Range Interpretation Comments POC-CALCIUM IONIZED 1.15 mmol/L 1.12-1.27 TESTED [place] [address] ([facility]) (test code = [facility] 1539) [address] [id number] 02:11:00 Test Item Value Reference Range Interpretation Comments POC-HEMATOCRIT 37 % 40-50 L TESTED AT [place] [address] ([facility]) (test code = [facility] [address] 2928) [id number] 02:11:00 Test Item Value Reference Range Interpretation Comments POC-HEMOGLOBIN 12.6 g/dL 13.0-16.8 L TESTED AT [place] [address] ([facility]) (test code [facility] = 1856) [address]FLMSYS AT [place] [address] [facility] [address] POCT-BLOOD GASES, [id number] 02:10:00 Test Item Value Reference Range Interpretation Comments TEMP, CELSIUS-POC 38.4 (BEAKER) (test code = 1834) FIO2-POC (BEAKER) 21 TESTED AT [facility] 6720 (test code = 1835) [facility] [place] [address] PH, VENOUS-POC 7.362 7.320-7.420 (BEAKER) (test code [...] -2.0-3.0 VENOUS-POC (BEAKER) (test code = 1847) [id number] 02:10:00 Test Item Value Reference Range Interpretation Comments POC-SODIUM (BEAKER) 139 meq/L 135-148 TESTED A [place] [address] (test code = 1542) [facility] [place] [address] [id number] 02:10:00 Test Item Value Reference Range Interpretation Comments POC-POTASSIUM 3.7 meq/L 3.6-5.5 TESTED AT [facility] 6720 (BEAKER) (test code [facility] [address] = 1540) HEPATIC FUNCTION [id number] 02:04:00 Test Item Value Reference Range Interpretation [...] = 8 U/L 6-55 347) BASIC METABOLIC [id number] 02:04:00 Test Item Value Reference Range Interpretation [...] PATIEN TS. CBC W/PLT COUNT & AUTO [id number] 02:03:00 Test Item Value Reference Range Interpretation [...] PERCENT (BEAKER) (test code = 2801) POCT-GLUCOSE [id number] 00:17:00 Test Item Value Reference Range Interpretation Comments POC-GLUCOSE METER 137 mg/dL 70-110 H TESTED AT [place] [address] ([facility]) [facility] [place] [facility] [address] POCT-GLUCOSE [id number] 18:14:00 Test Item Value Reference Range Interpretation Comments POC-GLUCOSE METER 106 mg/dL 70-110 TESTED AT [facility] [address] ([facility]) (test code = [facility] [place] 1538) [address] VANCOMYCIN LEVEL, [id number] 14:20:00 Test Item Value Reference Range Interpretation Comments VANCOMYCIN TROUGH ([facility]) (test 7.1 ug/mL 10.0-20.0 L code = 522) If vancomycin trough level > 20 mcg/mL, hold next vancomycin dose, and contact MD and pharmacist.POCT-GLUCOSE [id number] 13:10:00 Test Item Value Reference Range Interpretation Comments POC-GLUCOSE METER 155 mg/dL 70-110 H TESTED AT [facility] [address] (BEAKER) (test code = [place] 1538) [address] HEPATIC FUNCTION [id number] 06:51:00 Test Item Value Reference Range Interpretation [...] = 11 U/L 6-55 347) BASIC METABOLIC [id number] 06:51:00 Test Item Value Reference Range Interpretation [...] PATIEN TS. CBC W/PLT COUNT & AUTO [id number] 05:32:00 Test Item Value Reference Range Interpretation [...] 0-1 PERCENT (BEAKER) (test code = 2801) [id number] 11:08:00 Test Item Value Reference Range Interpretation Comments PARTIAL THROMBOPLASTIN TIME 47.0 seconds 22.5-36.0 H (BEAKER) (test code = 760) PROTHROMBIN [id number] 11:07:00 Test Item Value Reference Range Interpretation [...] for patients wiht mechanical heart valves.HEPATIC FUNCTION [id number] 01:46:00 Test Item Value Reference Range Interpretation [...] = 16 U/L 6-55 347) BASIC METABOLIC [id number] 01:46:00 Test Item Value Reference Range Interpretation [...] PATIEN TS. CBC W/PLT COUNT & AUTO [id number] 01:19:00 Test Item Value Reference Range Interpretation [...] (BEAKER) (test code = 2801) BETA-2 GLYCOPROTEIN [id number] 08:02:00 Test Item Value Reference Range Interpretation Comments B2 GLYCOPROTEIN Refer to individual AUTOVERIFICATION COMPONENT B2-Glycoprotein (test code = 2557) IgG, IgM and IgA results. [id number] 07:34:00 Test Item Value Reference Range Interpretation Comments MAGNESIUM (BEAKER) (test code = 1.6 mg/dL 1.6-2.6 627) BASIC METABOLIC [id number] 07:34:00 Test Item Value Reference Range Interpretation [...] APPLICABLE FOR DIALYSIS PATIEN TS. HEPATIC FUNCTION [id number] 07:34:00 Test Item Value Reference Range Interpretation [...] (test code = 41 U/L 6-55 347) [id number] 07:23:00 Test Item Value Reference Range Interpretation [...] 2801) LUPUS ANTICOAGULANT SCREEN WITH REFLEX TO [id number] 09:29:00 Test Item Value Reference Range Interpretation Comments DRVV SCREEN RATIO 1.39 <1.20 H (BEAKER) (test code = 6220) DRVV CONFIRM RATIO 1.21 (test code = 2709) DRVV INTERPRETATION Positive screen for (BEAKER) (test code = Lupus Anticoagulant 2376) with hexagonal phospholipid confirmation. Suggest repeat testing in 12 weeks and when patient not receiving anticoagulant therapy. PROTIME (BEAKER) (test 19.6 seconds 11.7-14.7 H code = 759) INR (BEAKER) (test code 1.7 <=5.9 = 370) PARTIAL THROMBOPLASTIN 57.5 seconds 22.5-36.0 H TIME (BEAKER) (test code = 760) PTT-LA (BEAKER) (test 61.5 32.0-41.8 H code = 8498814789) [id number] Christy Smith MD (BEAKER) (test code = (electronic signature) 8290) [id number] 08:06:00 Test Item Value Reference Range Interpretation Comments MAGNESIUM (BEAKER) (test code = 1.7 mg/dL 1.6-2.6 627) BASIC METABOLIC [id number] 08:06:00 Test Item Value Reference Range Interpretation [...] APPLICABLE FOR DIALYSIS PATIEN TS. HEPATIC FUNCTION [id number] 08:06:00 Test Item Value Reference Range Interpretation [...] 6-55 347) CBC W/PLT COUNT & AUTO [id number] 07:58:00 Test Item Value Reference Range Interpretation [...] PERCENT (BEAKER) (test code = 2801) PROTHROMBIN [id number] 07:26:00 Test Item Value Reference Range Interpretation Comments PROTIME (BEAKER) (test code = 14.5 seconds 11.7-14.7 759) INR (BEAKER) (test code = 370) 1.2 <=5.9 RECOMMENDED COUMADIN/WARFARIN INR THERAPY RANGESSTANDARD DOSE: 2.0 - 3.0 Includes: PROPHYLAXIS forvenous thrombosis, systemic embolization; TREATMENT for venous thrombosis and/or pulmonary embolus.HIGH RISK: Target INR is 2.5-3.5 for patients with mechanical heart valves.PT/[id number] 07:26:00 Test Item Value Reference Range Interpretation [...] 2.5-3.5 for patients with mechanical heart valves.HEXAGONAL [id number] 14:07:00 Test Item Value Reference Range Interpretation Comments HEXAGONAL PHOSPHOLIPID (BEAKER) Positive (test code = 1790) 1:1 MIXING STUDY, [id number] 09:07:00 Test Item Value Reference Range Interpretation Comments PROTIME (BEAKER) (test code = 19.6 seconds 11.7-14.7 H 759) PARTIAL THROMBOPLASTIN TIME 57.5 seconds 22.5-36.0 H (BEAKER) (test code = 760) PT 1/1 MIX (BEAKER) (test code = 14.4 SECS 11.7-14.7 1595) PTT 1/1 MIX (BEAKER) (test code 41.9 SECS 22.5-36.0 H = 1596) [id number] 07:05:00 Test Item Value Reference Range Interpretation [...] 2.5-3.5 for patients with mechanical heart valves.PROTHROMBIN TIME/[id number] 07:04:00 Test Item Value Reference Range Interpretation Comments PROTIME (BEAKER) (test code = 16.9 seconds 11.7-14.7 H 759) INR (BEAKER) (test code = 370) 1.4 <=5.9 RECOMMENDED COUMADIN/WARFARIN INR THERAPY RANGESSTANDARD DOSE: 2.0 - 3.0 Includes: PROPHYLAXIS forvenous thrombosis, systemic embolization; TREATMENT for venous thrombosis and/or pulmonary embolus.HIGH RISK: Target INR is 2.5-3.5 for patients with mechanical heart valves.[id number] 06:49:00 Test Item Value Reference Range Interpretation Comments MAGNESIUM (BEAKER) (test code = 1.7 mg/dL 1.6-2.6 627) BASIC METABOLIC [id number] 06:49:00 Test Item Value Reference Range Interpretation [...] APPLICABLE FOR DIALYSIS PATIEN TS. HEPATIC FUNCTION [id number] 06:49:00 Test Item Value Reference Range Interpretation [...] 6-55 347) CBC W/PLT COUNT & AUTO [id number] 06:36:00 Test Item Value Reference Range Interpretation [...] code = 2801) CARDIOLIPIN ANTIBODIES, IGG AND [id number] 06:24:00 Test Item Value Reference Range Interpretation Comments ANTICARDIOLIPIN IGG ANTIBODY (BEAKER) < GPL <20.0 (test code = 712) ANTICARDIOLIPIN IGM ANTIBODY (BEAKER) 0.2 MPL <20.0 (test code = 713) Anticardiolipin IgG Result Interpretation: <20.0 GPL Normal>/= 20.0 GPL PositiveAnticardiolipin IgM Result Interpretation: <20.0 MPL Normal>/= 20.0 MPL PositiveTHROMBIN [id number] 13:45:00 Test Item Value Reference Range Interpretation Comments THROMBIN TIME (BEAKER) (test code = 17.2 secs 13.8-20.0 550) [id number] 12:46:00 Test Item Value Reference Range Interpretation Comments FIBRINOGEN LEVEL (BEAKER) (test 762 mg/dl 225-434 H code = 658) [id number] 10:48:00 Test Item Value Reference Range Interpretation Comments MAGNESIUM (BEAKER) (test code = 1.7 mg/dL 1.6-2.6 627) BASIC METABOLIC [id number] 10:48:00 Test Item Value Reference Range Interpretation [...] APPLICABLE FOR DIALYSIS PATIEN TS. HEPATIC FUNCTION [id number] 10:48:00 Test Item Value Reference Range Interpretation [...] (test code = 50 U/L 6-55 347) [id number] 06:40:00 Test Item Value Reference Range Interpretation [...] 2.5-3.5 for patients with mechanical heart valves.PROTHROMBIN [id number] 06:39:00 Test Item Value Reference Range Interpretation [...] 0-1 PERCENT (BEAKER) (test code = 2801) [id number] 06:48:00 Test Item Value Reference Range Interpretation Comments MAGNESIUM (BEAKER) (test code = 1.9 mg/dL 1.6-2.6 627) BASIC METABOLIC [id number] 06:48:00 Test Item Value Reference Range Interpretation [...] APPLICABLE FOR DIALYSIS PATIEN TS. HEPATIC FUNCTION [id number] 06:48:00 Test Item Value Reference Range Interpretation [...] (test code = 50 U/L 6-55 347) [id number] 06:31:00 Test Item Value Reference Range Interpretation [...] 2.5-3.5 for patients with mechanical heart valves.PROTHROMBIN TIME/[id number] 06:30:00 Test Item Value Reference Range Interpretation [...] = 2801) RAD, CHEST, 1 VIEW, NON [id number] 18:34:00Reason for exam:->SOBShould this be performed at [...] significant change since 06/07/2018. Signed: Adán Herrmann Verified Date/Time: 06/11/2018 18:34:14 Reading Location: [facility] B1 C013W Consult Reading Room B-TYPE NATRIURETIC FACTOR (BNP)2018-06-11 15:45:00 Test Item Value Reference Range Interpretation Comments B-TYPE NATRIURETIC PEPTIDE (BEAKER) < pg/mL 0-100 (test code = 700) [id number] 06:36:00 Test Item Value Reference Range Interpretation [...] 2.5-3.5 for patients with mechanical heart valves.PROTHROMBIN TIME/[id number] 06:35:00 Test Item Value Reference Range Interpretation Comments PROTIME (BEAKER) (test code = 21.5 seconds 11.7-14.7 H 759) INR (BEAKER) (test code = 370) 2.0 <=5.9 RECOMMENDED COUMADIN/WARFARIN INR THERAPY RANGESSTANDARD DOSE: 2.0 - 3.0 Includes: PROPHYLAXIS forvenous thrombosis, systemic embolization; TREATMENT for venous thrombosis and/or pulmonary embolus.HIGH RISK: Target INR is 2.5-3.5 for patients with mechanical heart valves.[id number] 06:29:00 Test Item Value Reference Range Interpretation Comments MAGNESIUM (BEAKER) 1.9 mg/dL 1.6-2.6 Specimen slightly (test code = 627) hemolyzed BASIC METABOLIC [id number] 06:29:00 Test Item Value Reference Range Interpretation [...] APPLICABLE FOR DIALYSIS PATIEN TS. HEPATIC FUNCTION [id number] 06:29:00 Test Item Value Reference Range Interpretation [...] 347) hemolyzed CBC W/PLT COUNT & AUTO [id number] 06:00:00 Test Item Value Reference Range Interpretation [...] = 2801) BODY FLUID CULTURE + GRAM [id number] 18:11:00 Test Item Value Reference Range Interpretation Comments CULTURE (BEAKER) (test No growth code = 1095) GRAM STAIN RESULT <1+ White blood cells (BEAKER) (test code = seen 1123) GRAM STAIN RESULT No organisms seen (BEAKER) (test code = 67200) [id number] 07:01:00 Test Item Value Reference Range Interpretation Comments MAGNESIUM (BEAKER) (test code = 1.9 mg/dL 1.6-2.6 627) BASIC METABOLIC [id number] 07:01:00 Test Item Value Reference Range Interpretation [...] APPLICABLE FOR DIALYSIS PATIEN TS. HEPATIC FUNCTION [id number] 07:01:00 Test Item Value Reference Range Interpretation [...] code = 66 U/L 6-55 H 347) [id number] 06:32:00 Test Item Value Reference Range Interpretation [...] PERCENT (BEAKER) (test code = 2801) BLOOD [id number] 22:01:00 Test Item Value Reference Range Interpretation Comments CULTURE (BEAKER) (test No growth in 5 days code = 1095) BLOOD [id number] 22:01:00 Test Item Value Reference Range Interpretation Comments CULTURE (BEAKER) (test No growth in 5 days code = 1095) [id number] 07:20:00 Test Item Value Reference Range Interpretation [...] 0-1 PERCENT (BEAKER) (test code = 2801) [id number] 07:08:00 Test Item Value Reference Range Interpretation Comments MAGNESIUM (BEAKER) (test code = 2.1 mg/dL 1.6-2.6 627) BASIC METABOLIC [id number] 07:08:00 Test Item Value Reference Range Interpretation [...] APPLICABLE FOR DIALYSIS PATIEN TS. HEPATIC FUNCTION [id number] 07:08:00 Test Item Value Reference Range Interpretation [...] = 69 U/L 6-55 H 347) PROTHROMBIN [id number] 06:54:00 Test Item Value Reference Range Interpretation Comments PROTIME (BEAKER) (test code = 21.3 seconds 11.7-14.7 H 759) INR (BEAKER) (test code = 370) 2.0 <=5.9 RECOMMENDED COUMADIN/WARFARIN INR THERAPY RANGESSTANDARD DOSE: 2.0 - 3.0 Includes: PROPHYLAXIS forvenous thrombosis, systemic embolization; TREATMENT for venous thrombosis and/or pulmonary embolus.HIGH RISK: Target INR is 2.5-3.5 for patients with mechanical heart valves.[id number] 06:24:00 Test Item Value Reference Range Interpretation Comments MAGNESIUM (BEAKER) (test code = 2.0 mg/dL 1.6-2.6 627) BASIC METABOLIC [id number] 06:24:00 Test Item Value Reference Range Interpretation [...] APPLICABLE FOR DIALYSIS PATIEN TS. HEPATIC FUNCTION [id number] 06:24:00 Test Item Value Reference Range Interpretation [...] H 347) CBC W/PLT COUNT & AUTO [id number] 06:17:00 Test Item Value Reference Range Interpretation [...] PERCENT (BEAKER) (test code = 2801) PROTHROMBIN [id number] 05:39:00 Test Item Value Reference Range Interpretation Comments PROTIME (BEAKER) (test code = 22.4 seconds 11.7-14.7 H 759) INR (BEAKER) (test code = 370) 2.1 <=5.9 RECOMMENDED COUMADIN/WARFARIN INR THERAPY RANGESSTANDARD DOSE: 2.0 - 3.0 Includes: PROPHYLAXIS forvenous thrombosis, systemic embolization; TREATMENT for venous thrombosis and/or pulmonary embolus.HIGH RISK: Target INR is 2.5-3.5 for patients with mechanical heart valves.[id number] 05:39:00 Test Item Value Reference Range Interpretation [...] for patients with mechanical heart valves.VANCOMYCIN LEVEL, [id number] 05:28:00 Test Item Value Reference Range Interpretation Comments VANCOMYCIN TROUGH (BEAKER) (test 14.0 ug/mL 10.0-20.0 code = 522) RAD, CHEST, 1 VIEW, NON [id number] 16:09:00Reason for exam:->feverShould this be performed at [...] MDReport Verified Date/Time: 06/07/2018 16:09:31 Reading Location: [facility] Women INCUBATED 1:1 MIXING [id number] 16:01:00 Test Item Value Reference Range Interpretation Comments IMMEDIATE PT (BEAKER) 22.5 seconds 11.7-14.7 H (test code = 1487) IMMEDIATE PTT (BEAKER) 54.8 seconds 22.5-36.0 H (test code = 1488) IMMEDIATE 1:1 MIX PT 14.1 seconds 11.7-14.7 (BEAKER) (test code = 3353757373) IMMEDIATE 1:1 MIX PTT 40.9 seconds 22.5-36.0 H (BEAKER) (test code = 5344484227) 1:1 MIX, 1 HOUR INC PT 14.9 seconds (BEAKER) (test code = 1501) 1:1 MIX, 1 HOUR INC PTT 43.6 seconds (BEAKER) (test code = 1502) MIXING STUDY PATHOLOGIST Prolonged PT and PTT INTERPRETATION (BEAKER) with complete (test code = 9910499272) correction of PT and incomplete correction of PTT, 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 [id number] Sade Mccormack MD (BEAKER) (test code = (electronic 2608) signature) URINALYSIS W/ REFLEX URINE [id number] 14:23:00 Test Item Value Reference Range Interpretation [...] 1574) Rare SOURCE(BEAKER) (test code = 2795) [id number] 04:19:00 Test Item Value Reference Range Interpretation [...] 2.5-3.5 for patients with mechanical heart valves.PROTHROMBIN TIME/[id number] 04:18:00 Test Item Value Reference Range Interpretation Comments PROTIME (BEAKER) (test code = 22.3 seconds 11.7-14.7 H 759) INR (BEAKER) (test code = 370) 2.1 <=5.9 RECOMMENDED COUMADIN/WARFARIN INR THERAPY RANGESSTANDARD DOSE: 2.0 - 3.0 Includes: PROPHYLAXIS forvenous thrombosis, systemic embolization; TREATMENT for venous thrombosis and/or pulmonary embolus.HIGH RISK: Target INR is 2.5-3.5 for patients with mechanical heart valves.[id number] 04:08:00 Test Item Value Reference Range Interpretation Comments MAGNESIUM (BEAKER) (test code = 1.8 mg/dL 1.6-2.6 627) BASIC METABOLIC [id number] 04:08:00 Test Item Value Reference Range Interpretation [...] APPLICABLE FOR DIALYSIS PATIEN TS. HEPATIC FUNCTION [id number] 04:08:00 Test Item Value Reference Range Interpretation [...] H 347) CBC W/PLT COUNT & AUTO [id number] 03:56:00 Test Item Value Reference Range Interpretation [...] PERCENT (BEAKER) (test code = 2801) FL, [id number] 18:30:00Reason for exam:->stonesPROCEDURE PERFORMED IN O.R. - PLEASE REFER TO THE INTRAOPERATIVE REPORT. CT, DRAINAGE, ABDOMINAL 2018-06-06 18:06:00Reason for exam:->drainage of pancreatic fluid collection; concern for infection given ongoing fevers, WBC 24kFINAL REPORT INDICATION:28-year-old male with acute pancreatitis and acute necrotic collection. Request for percutaneous image guided drainage catheter placement. COMPARISON:June 05, 2018 TECHNIQUE:CT-guided placement of 10 [place] drainage catheter in left upper quadrant peripancreatic [...] and the introducer needle removed. An 8 [place] and then 10 [place] dilator were used. Then, a 10 [place] multisidehole drainage catheter was placed over the [...] 45 minutes. IMPRESSION: CT-guided placement of 10 [place] Citizen drainage catheter in left upper quadrant peripancreatic collection. Thin dark fluid was encountered. Signed: Aldo Mcguire MDReport Verified Date/Time: 06/06/2018 18:06:54 Reading Location: [facility] B1 C013Y CT Body Reading Room Electronically sign ed by: ALDO MCGUIRE M.D. on 06/06/2018 06:06 PMC. DIFFICILE GDH [id number] 10:12:00 Test Item Value Reference Range Interpretation Comments CDT TOXIN (test code Negative Negative = [id number]) CDT GDH ANTIGEN (test Negative Negative No ind ication of code = 7816870782) Clostridi um difficile infection and n o colonization. Discontinue ent sonal isolation and t herapy. Testing performed by [employer] Rapid Cassette Assay. For GDH, published sensitivity of the assay is 98.7% compared to cytotoxicity testing. For Toxin AB, published sensitivity is 87.8% and specificity 99.4% compared to cytotoxicity testing.Verification of kit performance was done by the [facility] Microbiology Lab prior to clinical use.VANCOMYCIN LEVEL, [id number] 04:02:00 Test Item Value Reference Range Interpretation Comments VANCOMYCIN TROUGH (BEAKER) (test 9.9 ug/mL 10.0-20.0 L code = 522) [id number] 02:24:00 Test Item Value Reference Range Interpretation Comments MAGNESIUM (BEAKER) (test code = 1.8 mg/dL 1.6-2.6 627) BASIC METABOLIC [id number] 02:24:00 Test Item Value Reference Range Interpretation [...] APPLICABLE FOR DIALYSIS PATIEN TS. HEPATIC FUNCTION [id number] 02:24:00 Test Item Value Reference Range Interpretation [...] code = 60 U/L 6-55 H 347) [id number] 02:12:00 Test Item Value Reference Range Interpretation [...] 2.5-3.5 for patients with mechanical heart valves.PROTHROMBIN TIME/[id number] 02:11:00 Test Item Value Reference Range Interpretation [...] H PERCENT (BEAKER) (test code = 2801) [id number] 16:33:00 Test Item Value Reference Range Interpretation Comments FIBRINOGEN LEVEL (BEAKER) (test 852 mg/dl 225-434 H code = 658) CT, [id number] 12:46:00FINAL REPORT CT abdomen and pelvis with [...] MDReport Verified Date/Time: 06/05/2018 12:46:00 Reading Location: [facility] Diagnostic Imaging Reading Room - [place] [address] [id number] CBC W/PLT COUNT & AUTO DIFFERENTIAL 2018-06-05 [...] = 3438) Received comment: User comments: Slide comments:[id number] 04:13:00 Test Item Value Reference Range Interpretation [...] is 2.5-3.5 for patients with mechanical heart valves.[id number] 04:12:00 Test Item Value Reference Range Interpretation Comments MAGNESIUM (BEAKER) (test code = 1.8 mg/dL 1.6-2.6 627) BASIC METABOLIC [id number] 04:12:00 Test Item Value Reference Range Interpretation [...] APPLICABLE FOR DIALYSIS PATIEN TS. HEPATIC FUNCTION [id number] 04:12:00 Test Item Value Reference Range Interpretation [...] code = 55 U/L 6-55 347) PROTHROMBIN [id number] 04:12:00 Test Item Value Reference Range Interpretation Comments PROTIME (BEAKER) (test code = 20.4 seconds 11.7-14.7 H 759) INR (BEAKER) (test code = 370) 1.9 <=5.9 RECOMMENDED COUMADIN/WARFARIN INR THERAPY RANGESSTANDARD DOSE: 2.0 - 3.0 Includes: PROPHYLAXIS forvenous thrombosis, systemic embolization; TREATMENT for venous thrombosis and/or pulmonary embolus.HIGH RISK: Target INR is 2.5-3.5 for patients with mechanical heart valves.BLOOD [id number] 02:02:00 Test Item Value Reference Range Interpretation Comments CULTURE (BEAKER) (test No growth in 5 days code = 1095) BLOOD [id number] 02:02:00 Test Item Value Reference Range Interpretation Comments CULTURE (BEAKER) (test No growth in 5 days code = 1095) CBC W/PLT COUNT & AUTO [id number] 22:18:00 Test Item Value Reference Range Interpretation [...] = 3438) Received comment: User comments: Slide comments:[id number] 14:28:00 Test Item Value Reference Range Interpretation Comments PROCALCITONIN (BEAKER) (test code 0.62 ng/mL <0.05 H = 3036) SEPSIS RISK (ng/mL)Low: 0.05-0.50Intermediate: 0.51-2.00High: >=2.01LACTIC ACID, [id number] 14:07:00 Test Item Value Reference Range Interpretation Comments LACTATE BLOOD VENOUS 1.1 mmol/L 0.5-2.2 Specime n moderately (2) (BEAKER) (test hemolyzed code = 2872) [id number] 06:34:00 Test Item Value Reference Range Interpretation Comments MAGNESIUM (BEAKER) (test code = 1.7 mg/dL 1.6-2.6 627) BASIC METABOLIC [id number] 06:34:00 Test Item Value Reference Range Interpretation [...] APPLICABLE FOR DIALYSIS PATIEN TS. HEPATIC FUNCTION [id number] 06:34:00 Test Item Value Reference Range Interpretation [...] (test code = 53 U/L 6-55 347) [id number] 06:06:00 Test Item Value Reference Range Interpretation [...] 2.5-3.5 for patients with mechanical heart valves.PROTHROMBIN TIME/[id number] 06:05:00 Test Item Value Reference Range Interpretation Comments PROTIME (BEAKER) (test code = 18.7 seconds 11.7-14.7 H 759) INR (BEAKER) (test code = 370) 1.7 <=5.9 RECOMMENDED COUMADIN/WARFARIN INR THERAPY RANGESSTANDARD DOSE: 2.0 - 3.0 Includes: PROPHYLAXIS forvenous thrombosis, systemic embolization; TREATMENT for venous thrombosis and/or pulmonary embolus.HIGH RISK: Target INR is 2.5-3.5 for patients with mechanical heart valves.[id number] 06:22:00 Test Item Value Reference Range Interpretation Comments MAGNESIUM (BEAKER) (test code = 1.8 mg/dL 1.6-2.6 627) BASIC METABOLIC [id number] 06:22:00 Test Item Value Reference Range Interpretation Comments SODIUM (BEAKER) 135 meq/L 136-145 L (test code = 381) POTASSIUM (BEAKER) 3.9 meq/L 3.5-5.1 (test code = 379) CHLORIDE (BEAKER) 103 meq/L 98-107 (test code = 382) CO2 (BEAKER) (test 25 meq/L 22- code = 355) BLOOD UREA NITROGEN 12 [...] APPLICABLE FOR DIALYSIS PATIEN TS. HEPATIC FUNCTION [id number] 06:22:00 Test Item Value Reference Range Interpretation [...] (test code = 46 U/L 6-55 347) [id number] 06:08:00 Test Item Value Reference Range Interpretation [...] 2.5-3.5 for patients with mechanical heart valves.PROTHROMBIN TIME/[id number] 06:07:00 Test Item Value Reference Range Interpretation [...] = 2801) CBC W/PLT COUNT & AUTO [id number] 04:50:00 Test Item Value Reference Range Interpretation [...] H PERCENT (BEAKER) (test code = 2801) [id number] 04:26:00 Test Item Value Reference Range Interpretation Comments MAGNESIUM (BEAKER) (test code = 1.7 mg/dL 1.6-2.6 627) BASIC METABOLIC [id number] 04:26:00 Test Item Value Reference Range Interpretation [...] APPLICABLE FOR DIALYSIS PATIEN TS. HEPATIC FUNCTION [id number] 04:26:00 Test Item Value Reference Range Interpretation [...] (test code = 54 U/L 6-55 347) [id number] 04:11:00 Test Item Value Reference Range Interpretation [...] 2.5-3.5 for patients with mechanical heart valves.PROTHROMBIN [id number] 04:10:00 Test Item Value Reference Range Interpretation Comments PROTIME (BEAKER) (test code = 17.3 seconds 11.7-14.7 H 759) INR (BEAKER) (test code = 370) 1.5 <=5.9 RECOMMENDED COUMADIN/WARFARIN INR THERAPY RANGESSTANDARD DOSE: 2.0 - 3.0 Includes: PROPHYLAXIS forvenous thrombosis, systemic embolization; TREATMENT for venous thrombosis and/or pulmonary embolus.HIGH RISK: Target INR is 2.5-3.5 for patients with mechanical heart valves.U/S, ABDOMINAL, [id number] 14:19:00Abdomen limited area? Add comment if clarification [...] MDReport Verified Date/Time: 06/01/2018 14:19:45 Reading Location: [address] Transitional Reading Room CBC W/PLT COUNT & AUTO [id number] 06:28:00 Test Item Value Reference Range Interpretation [...] 0-1 PERCENT (BEAKER) (test code = 2801) [id number] 05:51:00 Test Item Value Reference Range Interpretation Comments MAGNESIUM (BEAKER) (test code = 2.0 mg/dL 1.6-2.6 627) BASIC METABOLIC [id number] 05:51:00 Test Item Value Reference Range Interpretation [...] DIALYSIS PATIEN TS. Specimen slightly ictericHEPATIC FUNCTION [id number] 05:51:00 Test Item Value Reference Range Interpretation [...] = 48 U/L 6-55 347) Specimen slightly ictericPT/[id number] 05:30:00 Test Item Value Reference Range Interpretation [...] 2.5-3.5 for patients with mechanical heart valves.PROTHROMBIN TIME/[id number] 05:29:00 Test Item Value Reference Range Interpretation Comments PROTIME (BEAKER) (test code = 16.0 seconds 11.7-14.7 H 759) INR (BEAKER) (test code = 370) 1.3 <=5.9 RECOMMENDED COUMADIN/WARFARIN INR THERAPY RANGESSTANDARD DOSE: 2.0 - 3.0 Includes: PROPHYLAXIS forvenous thrombosis, systemic embolization; TREATMENT for venous thrombosis and/or pulmonary embolus.HIGH RISK: Target INR is 2.5-3.5 for patients with mechanical heart valves.RAD, CHEST, 1 VIEW, NON [id number] 11:58:00Reason for exam:->pancreatitisShould this be performed at [...] inthe left lung base. Signed: Perez Huerta MDReport Verified Date/Time: 05/31/2018 11:58:54 Reading Location: [facility] Radiology Reading Room CBC W/PLT COUNT & AUTO [id number] 08:44:00 Test Item Value Reference Range Interpretation [...] = 3438) Received comment: User comments: Slide comments:[id number] 04:27:00 Test Item Value Reference Range Interpretation Comments MAGNESIUM (BEAKER) (test code = 1.6 mg/dL 1.6-2.6 627) BASIC METABOLIC [id number] 04:27:00 Test Item Value Reference Range Interpretation [...] DIALYSIS PATIEN TS. Specimen moderately ictericHEPATIC FUNCTION [id number] 04:27:00 Test Item Value Reference Range Interpretation [...] = 29 U/L 6-55 347) Specimen moderately ictericPT/[id number] 04:15:00 Test Item Value Reference Range Interpretation [...] 2.5-3.5 for patients with mechanical heart valves.PROTHROMBIN TIME/[id number] 04:14:00 Test Item Value Reference Range Interpretation [...] = 2795) CBC W/PLT COUNT & AUTO [id number] 21:33:00 Test Item Value Reference Range Interpretation [...] 3438) Received comment: User comments: Slide comments:TROPONIN [id number] 21:32:00 Test Item Value Reference Range Interpretation [...] acute neurological disease, and persistent tachyarrhythmia.BASIC METABOLIC [id number] 21:29:00 Test Item Value Reference Range Interpretation [...] APPLICABLE FOR DIALYSIS PATIEN TS. Specimen moderately [id number] 21:27:00 Test Item Value Reference Range Interpretation Comments MAGNESIUM (BEAKER) (test code = 1.6 mg/dL 1.6-2.6 627) LIPID [id number] 21:27:00 Test Item Value Reference Range Interpretation [...] 160-189 Very High >=190 Specimen moderatelyictericHEPATIC FUNCTION [id number] 21:27:00 Test Item Value Reference Range Interpretation [...] 9-64 (test code = 364) Specimen moderately [id number] 21:27:00 Test Item Value Reference Range Interpretation Comments LIPASE (BEAKER) (test code = 749) 227 U/L 8-78 H Specimen moderately ictericPROTHROMBIN TIME/[id number] 21:05:00 Test Item Value Reference Range Interpretation [...]
[2019-12-13] MEDS ORDERED: PANTOPRAZOLE 40 MG INJ ONE (09:46)
[2019-12-13] MEDS ORDERED: NA CHLORIDE 0.9% 1,000 ML ONE (09:47)
[2019-12-13] MEDS ORDERED: OCTREOTIDE ACETATE 100 MCG/ML ONE (09:47)
[2019-12-13] MEDS ORDERED: PANTOPRAZOLE INJ 80 MG in NA CHLORIDE 0.9% 250 ML IV SCH (10:00)
[2019-12-13] MEDS ORDERED: OCTREOTIDE 500 MCG in NA CHLORIDE 0.9% 500 ML IV SCH (10:00)
[2019-12-13 10:07] LABS: Protime INR 1.22
--- NOTE | 2019-12-13 10:19 | EDPHYS ---
Physician Documentation [facility] Name: Jann Alvarez Age: 29 yrs Sex: Male : 1990 Arrival Date: 12/13/2019 Time: 09:22 Bed 3 Private MD: ALFREDO Physician Rush Briones HPI: 12/12 09:28 This 29 yrs old Male presents to ER via EMS with complaints of GI Bleeding. rachelle 09:28 The patient presents to the emergency department vomiting blood, a moderate amount. rachelle Onset: The symptoms/episode began/occurred just prior to arrival, this morning. Abdominal pain: described as constant, crampy, located in the epigastric area, right upper quadrant and left upper quadrant. Modifying factors: The symptoms are alleviated by nothing, the symptoms are aggravated by nothing. Associated signs and symptoms: Pertinent positives: dizziness at rest, dizziness when standing, shortness of breath, syncope, vomiting. Severity of symptoms: At their worst the symptoms were moderate severe in the emergency department the symptoms are unchanged. The patient has experienced similar episodes in the past, multiple times. Historical: - Allergies: 09:25 meropenem; jl7 09:25 Vancomycin; jl7 09:25 Zosyn; jl7 - Home Meds: 09:25 Dulcolax (bisacodyl) 5 mg Oral TbEC 1 tab as needed [Active]; ferrous sulfate 325 mg jl7 (65 mg iron) Oral TbEC [Active]; gabapentin 100 mg Oral cap 2 caps 3 times per day [Active]; midodrine 5 mg Oral tab 2 tabs 3 times per day for Symptomatic Orthostatic Hypotension [Active]; Zofran (as hydrochloride) 4 mg Oral tab 1 tabs every 12 hours [Active]; - PMHx: 09:25 Autism; Autism- Nonverbal; Gastric varices; Lupus; Pancreatitis; SEVERE PANCREATIC jl7 NECROSIS; - PSHx: 09:25 Cholecystectomy; splenectomy; jl7 - Immunization history:: Adult Immunizations unknown. - Social history:: Smoking status: Patient denies any tobacco usage or history of. - Family history:: not pertinent. ROS: 09:28 Constitutional: Negative for fever, chills, and weight loss, Eyes: Negative for injury, rachelle pain, redness, and discharge, ENT: Negative for injury, pain, and discharge, Neck: Negative for injury, pain, and swelling, Cardiovascular: Negative for chest pain, palpitations, and edema, Respiratory: Negative for shortness of breath, cough, wheezing, and pleuritic chest pain, Back: Negative for injury and pain, : Negative for injury, bleeding, discharge, and swelling, MS/Extremity: Negative for injury and deformity, Skin: Negative for injury, rash, and discoloration, Neuro: Negative for headache, weakness, numbness, tingling, and seizure, Psych: Negative for depression, anxiety, suicide ideation, homicidal ideation, and hallucinations, Allergy/Immunology: Negative for hives, rash, and allergies, Endocrine: Negative for neck swelling, polydipsia, polyuria, polyphagia, and marked weight changes, Hematologic/Lymphatic: Negative for swollen nodes, abnormal bleeding, and unusual bruising. 09:28 Abdomen/GI: Positive for abdominal pain, nausea and vomiting, hematemesis, of the epigastric area, right upper quadrant and left upper quadrant. Exam: 09:28 Head/Face: Normocephalic, atraumatic. Eyes: Pupils equal round and reactive to light, rachelle extra-ocular motions intact. Lids and lashes normal. Conjunctiva and sclera are non-icteric and not injected. Cornea within normal limits. Periorbital areas with no swelling, redness, or edema. ENT: Nares patent. No nasal discharge, no septal abnormalities noted. Tympanic membranes are normal and external auditory canals are clear. Oropharynx with no redness, swelling, or masses, exudates, or evidence of obstruction, uvula midline. Mucous membranes moist. Neck: Trachea midline, no thyromegaly or masses palpated, and no cervical lymphadenopathy. Supple, full range of motion without nuchal rigidity, or vertebral point tenderness. No Meningismus. Chest/axilla: Normal chest wall appearance and motion. Nontender with no deformity. No lesions are appreciated. Respiratory: Lungs have equal breath sounds bilaterally, clear to auscultation and percussion. No rales, rhonchi or wheezes noted. No increased work of breathing, no retractions or nasal flaring. Back: No spinal tenderness. No costovertebral tenderness. Full range of motion. Male : Normal genitalia with no discharge or lesions. MS/ Extremity: Pulses equal, no cyanosis. Neurovascular intact. Full, normal range of motion. Neuro: Awake and alert, GCS 15, oriented to person, place, time, and situation. Cranial nerves II-XII grossly intact. Motor strength 5/5 in all extremities. Sensory grossly intact. Cerebellar exam normal. Normal gait. Psych: Awake, alert, with orientation to person, place and time. Behavior, mood, and affect are within normal limits. 09:28 Constitutional: The patient appears lethargic, in obvious distress, mildly distressed, moderately distressed. 09:28 Cardiovascular: Rate: tachycardic, Rhythm: regular, Pulses: Pulses are 4+ in left popliteal artery, bilateral radial, brachial, femoral, popliteal, posterior tibial and and dorsalis pedis arteries.. Heart sounds: normal, normal S1and S2, no S3 or S4, no murmur, no rub, no gallop, Edema: is not appreciated, JVD: is not appreciated. 10:13 ECG was reviewed by the Attending Physician. [facility] Vital Signs: 09:23 BP 87 / 62; Pulse 123; Resp 19; Pulse Ox 100% ; Weight 51.26 kg; Height 5 ft. 10 in. jl7 (177.80 cm); 10:23 BP 94 / 63; Pulse 112; Resp 15; Temp 97.7(O); Pulse Ox 100% on R/A; em 10:45 BP 91 / 66; Pulse 111; Resp 16; Pulse Ox 100% on R/A; em 11:16 BP 85 / 62; Pulse 107; Resp 14; Pulse Ox 100% on R/A; em 11:20 em 11:44 BP 89 / 64; Pulse 102; Resp 14; Temp 97.7; Pulse Ox 100% on R/A; em 12:30 BP 91 / 63; Pulse 97; Resp 16; Temp 97.6; Pulse Ox 99% on R/A; em 09:23 Body Mass Index 16.21 (51.26 kg, 177.80 cm) [facility] 11:20 please see blood transfusion sheet for VS from [id number] em Procedures: 09:57 Central Line: the site was prepped with Betadine, in sterile fashion, a triple lumen rachelle catheter was inserted, in the right femoral vein, in 1 attempts. placement was verified, by blood return, the site was dressed with using sterile technique, the patient tolerated the procedure, well. MDM: 09:23 Patient medically screened. [facility] 09:31 Differential diagnosis: gastritis, hemorrhagic shock, varices. Data reviewed: vital rachelle signs, nurses notes, lab test result(s), EKG, radiologic studies, plain films. Data interpreted: quality assurance monitor chassis: rate is 123 beats/min, rhythm is regular, Pulse oximetry: on room air is 100 %. Test interpretation: by ED physician or midlevel provider: ECG, plain radiologic studies. Counseling: I had a detailed discussion with the patient and/or guardian regarding: the historical points, exam findings, and any diagnostic results supporting the discharge/admit diagnosis, lab results, radiology results, the need to transfer to another facility, for higher level of care, [facility] does not immediately have the required specialist. 12/12 09:26 Order name: Basic Metabolic Panel; Complete Time: 10:51 [facility] 12/12 09:26 Order name: CBC with Diff; Complete Time: 10:51 [facility] 12/12 09:26 Order name: LFT's; Complete Time: 10:51 [facility] 12/12 09:26 Order name: Magnesium; Complete Time: 10:51 [facility] 12/12 09:26 Order name: NT PRO-BNP; Complete Time: 10:51 [facility] 12/12 09:26 Order name: PT-INR; Complete Time: 10:27 [facility] 12/12 09:26 Order name: Troponin (emerg Dept Use Only); Complete Time: 10:51 [facility] 12/12 09:26 Order name: XRAY Chest (1 view) [facility] 12/12 09:26 Order name: Type And Screen [facility] 12/12 09:26 Order name: Lipase; Complete Time: 10:51 [facility] 12/12 10:11 Order name: Packed RBC Leukored [facility] 12/12 09:26 Order name: EKG; Complete Time: 09:27 [facility] 12/12 09:26 Order name: Cardiac monitoring; Complete Time: 09:59 [facility] 12/12 09:26 Order name: EKG - Nurse/Tech; Complete Time: 10:12 [facility] 12/12 09:26 Order name: IV Saline Lock; Complete Time: 09:59 [facility] 12/12 09:26 Order name: Labs collected and sent; Complete Time: 09:59 [facility] 12/12 09:26 Order name: O2 Per Protocol; Complete Time: 09:59 [facility] 12/12 09:26 Order name: O2 Sat Monitoring; Complete Time: 09:59 [facility] 12/12 09:26 Order name: Transfuse; Complete Time: 11:42 [facility] 12/12 09:26 Order name: Central Line Kit; Complete Time: 59 [facility] 12/12 10:28 Order name: Labs - recollect needed: CBC; Complete Time: 10:32 iw EC:13 Rate is 114 beats/min. Rhythm is regular. QRS Hester is Normal. OR interval is normal. [facility] QRS interval is normal. No Q waves. T waves are Normal. No ST changes noted. Clinical impression: Sinus tachycardia. Interpreted by me. Reviewed by me. Administered Medications: : Drug: NS 0.9% 500 ml Route: IV; Rate: bolus; Site: right femoral; em 10:32 Follow up: IV Status: Completed infusion; IV Intake: 500ml em 10:05 Drug: SandoSTATIN 50 mcg Route: IV; Rate: per protocol; Site: right femoral; em 10:25 Follow up: Response: No adverse reaction; IV Status: Completed infusion em 10:08 Drug: ProTONIX 80 mg Route: IVP; Site: right femoral; em 10:26 Follow up: Response: No adverse reaction em 10:10 Drug: ProTONIX 8 mg/hr Route: IV; Rate: 25 ml/hr; Site: right femoral; em 13:06 Follow up: IV Status: Infusion continued upon transfer em 10:12 Drug: SandoSTATIN 25 mcg/h Route: IV; Rate: calculated rate; Site: right femoral; em 13:06 Follow up: IV Status: Infusion continued upon transfer em 10:17 Drug: Zofran (Ondansetron) 4 mg Route: IVP; Site: right femoral; em 10:36 Follow up: Response: No adverse reaction; Marked relief of symptoms; Nausea is decreasedem 10:32 Drug: NS 0.9% 1000 ml Route: IV; Rate: 125 ml/hr; Site: right femoral; em 13:06 Follow up: IV Status: Infusion continued upon transfer em Disposition: 12/13/19 10:[address] [facility]. Diagnosis are Gastrointestinal hemorrhage, unspecified - UPPER, Anemia, unspecified, Hypotension, Hematemesis. - Reason for transfer: Higher level of care. - Accepting physician is to [facility]. - Condition is Serious. - Problem is new. - Symptoms have improved. Critical care time excluding procedures: 11:45 Critical care time: Bedside Care: 30 minutes, Consultation: 10 minutes, Family rachelle Intervention: 10 minutes. Total time: 50 minutes Signatures: Dispatcher [employer] Rush Calderon MD MD cha Munoz, Edgar, RN RN Trinh Draper RN RN iw Leal, Jahala, RN RN jl7 Corrections: (The following items were deleted from the chart) 13:08 10:18 12/13/2019 10:[address] [facility]. em Diagnosis is Gastrointestinal hemorrhage, unspecified - UPPER; Anemia, unspecified; Hypotension; Hematemesis. Reason for transfer: Higher level of care. Accepting physician is to [facility]. Condition is Serious. Problem is new. Symptoms have improved. rachelle
--- NOTE | 2019-12-13 10:19 | ER ---
Nurse's Notes [facility] Name: Jann Alvarez Age: 29 yrs Sex: Male : 1990 Arrival Date: 12/13/2019 Time: 09:22 Bed 3 Private MD: Diagnosis: Gastrointestinal hemorrhage, unspecified-UPPER;Anemia, unspecified;Hypotension;Hematemesis Presentation: 12/12 09:23 Chief complaint: EMS states: Abd pain and vomiting bright red emesis since this jl7 morning. Coronavirus screen: Client denies travel out of the [place] in the last 14 days. At this time, the client does not indicate any symptoms associated with coronavirus-19. Ebola Screen: No symptoms or risks identified at this time. Initial Sepsis Screen: Does the patient meet any 2 criteria? No. Patient's initial sepsis screen is negative. Does the patient have a suspected source of infection? No. Patient's initial sepsis screen is negative. Risk Assessment: Do you want to hurt yourself or someone else? Patient reports no desire to harm self or others. Onset of symptoms was December 13, 2019. Care prior to arrival: None. 09:23 Method Of Arrival: EMS: [facility] 7 09:23 Acuity: KIMBER 2 jl7 Triage Assessment: 09:25 General: Appears in no apparent distress. uncomfortable, ill, Behavior is calm, jl7 cooperative. Pain: Complains of pain in abdomen. Neuro: Level of Consciousness is awake, alert, obeys commands. Cardiovascular: Denies chest pain. Respiratory: Airway is patent Respiratory effort is even, unlabored, Respiratory pattern is regular, symmetrical. GI: Parent/caregiver reports the patient having nausea, vomiting. Derm: Skin is dry, Skin is pale, Skin temperature is cool. Historical: - Allergies: 09:25 meropenem; jl7 09:25 Vancomycin; jl7 09:25 Zosyn; jl7 - Home Meds: 09:25 Dulcolax (bisacodyl) 5 mg Oral TbEC 1 tab as needed [Active]; ferrous sulfate 325 mg jl7 (65 mg iron) Oral TbEC [Active]; gabapentin 100 mg Oral cap 2 caps 3 times per day [Active]; midodrine 5 mg Oral tab 2 tabs 3 times per day for Symptomatic Orthostatic Hypotension [Active]; Zofran (as hydrochloride) 4 mg Oral tab 1 tabs every 12 hours [Active]; - PMHx: 09:25 Autism; Autism- Nonverbal; Gastric varices; Lupus; Pancreatitis; SEVERE PANCREATIC jl7 NECROSIS; - PSHx: 09:25 Cholecystectomy; splenectomy; jl7 - Immunization history:: Adult Immunizations unknown. - Social history:: Smoking status: Patient denies any tobacco usage or history of. - Family history:: not pertinent. Screenin:27 Abuse screen: Denies threats or abuse. Denies injuries from another. Nutritional jl7 screening: No deficits noted. Tuberculosis screening: No symptoms or risk factors identified. Fall Risk IV access (20 points). Gait- Weak (10 pts.). Total Chavez Fall Scale indicates Low Risk Score (25-44 pts). Fall prevention measures have been instituted. Side Rails Up X 2 Placed close to Nursing Station Frequent Obs/Assesments occuring Family Present and informed to notify staff if they need to leave bedside As available Patient and Family Educated on Fall Prevention Program and strategies. Assessment: 09:28 General: Appears uncomfortable, Behavior is calm, cooperative. Pain: Complains of pain em in abdomen. Neuro: Level of Consciousness is awake, alert, obeys commands, Oriented to person, place. Cardiovascular: Capillary refill is > 3 seconds is sluggish in bilateral fingers toes. Respiratory: Airway is patent Respiratory effort is even, unlabored, Respiratory pattern is regular, symmetrical. GI: Parent/caregiver reports the patient having vomiting, vomiting blood. Derm: Skin is intact, Skin is dry, Skin is pale, Skin temperature is cool. 10:10 Reassessment: pt currently vomiting up brownish/red blood, Dr. Briones notified, em received new medication orders. 10:32 Reassessment: recollect for CBC sent to the lab. em 10:35 Reassessment: Patient appears in no apparent distress at this time. reports nausea has em improved. 11:20 Reassessment: double checked PRBC's with BRISA Tsang, initiated transfusion, informed pt em to state SOB, difficulty breathing or anything abnormal, mother at bedside. 11:45 Reassessment: attempted to give report to [facility], will call back. em 12:21 Reassessment: report given to BRISA Freeman from [facility], pending EMS em transportation. 12:50 Reassessment: Patient appears in no apparent distress at this time. report given to em EMS. Vital Signs: 09:23 BP 87 / 62; Pulse 123; Resp 19; Pulse Ox 100% ; Weight 51.26 kg; Height 5 ft. 10 in. jl7 (177.80 cm); 10:23 BP 94 / 63; Pulse 112; Resp 15; Temp 97.7(O); Pulse Ox 100% on R/A; em 10:45 BP 91 / 66; Pulse 111; Resp 16; Pulse Ox 100% on R/A; em 11:16 BP 85 / 62; Pulse 107; Resp 14; Pulse Ox 100% on R/A; em 11:20 em 11:44 BP 89 / 64; Pulse 102; Resp 14; Temp 97.7; Pulse Ox 100% on R/A; em 12:30 BP 91 / 63; Pulse 97; Resp 16; Temp 97.6; Pulse Ox 99% on R/A; em 09:23 Body Mass Index 16.21 (51.26 kg, 177.80 cm) jl7 11:20 please see blood transfusion sheet for VS from [id number] em ED Course: 09:22 Patient arrived in ED. jl7 09:23 Rush Briones MD is Attending Physician. [facility] 09:24 Triage completed. jl7 09:25 Arm band placed on right wrist. jl7 09:27 Patient has correct armband on for positive identification. Placed in gown. Bed in low jl7 position. Call light in reach. Side rails up X2. Adult w/ patient. fringe maker on. Pulse ox on. NIBP on. Warm blanket given. 09:29 Willie Chand, RN is Primary Nurse. em 09:45 Assisted provider with central line placement. Set up central line tray. Triple lumen em line placed in right femoral. Line placed by Rush Briones MD Placement verified by CXR, blood return, Dressed with 4X4s, Tape, Tegaderm, Blood was collected. Patient tolerated well. Before procedure, did Practitioner(s) obtain informed consent? Yes. Patient \T\ family education about procedure, CLABSI prevention and S/S of infection? Yes. Time-out/Briefing performed prior to start of procedure? Yes. Was handwashing/sanitizing done immediately prior to procedure? Yes. Was patient positioned to in a way to prevent air embolism? Yes. Was procedure site sterilized? Yes, with chlorhexidine. Was the site allowed to dry? Yes. Was local anesthetic and/or sedation utilized? Yes. During the procedure, did the Practitioner(s) maintain a sterile field? Yes. Were unused ports clamped during insertion? Yes. Was a 2nd qualified MD obtained after 3 unsuccessful insertion attempts? No. Was blood aspirated from each lumen? Yes. After the procedure, did the Practitioner(s) clean the site and apply a sterile dressing? Yes. 10:04 EKG done, by ED staff, reviewed by Rush Briones MD. dh3 10:30 XRAY Chest (1 view) In Process Unspecified. EDMS 10:[address] Briones with Mame Silva Rn from the [facility] Transfer [facility]. 10:53 connected the GI rehabilitation team lead for [facility] with Dr. Briones for patient transfer eb consultation. 11:[address] Horn the body former rehabilitation team lead for [facility] with Dr. Briones for eb patient transfer consultation. 11:15 administrative approval given by Mame Silva Rn/ patient has been accepted to [facility] [address] [address] bed 7104/ Dr. Dave Horn has accepted the patient in transfer. report to be called to transfer center at [phone]. 12:38 Patient admitted, IV remains in place. em Administered Medications: 09:57 Drug: NS 0.9% 500 ml Route: IV; Rate: bolus; Site: right femoral; em 10:32 Follow up: IV Status: Completed infusion; IV Intake: 500ml em 10:05 Drug: SandoSTATIN 50 mcg Route: IV; Rate: per protocol; Site: right femoral; em 10:25 Follow up: Response: No adverse reaction; IV Status: Completed infusion em 10:08 Drug: ProTONIX 80 mg Route: IVP; Site: right femoral; em 10:26 Follow up: Response: No adverse reaction em 10:10 Drug: ProTONIX 8 mg/hr Route: IV; Rate: 25 ml/hr; Site: right femoral; em 13:06 Follow up: IV Status: Infusion continued upon transfer em 10:12 Drug: SandoSTATIN 25 mcg/h Route: IV; Rate: calculated rate; Site: right femoral; em 13:06 Follow up: IV Status: Infusion continued upon transfer em 10:17 Drug: Zofran (Ondansetron) 4 mg Route: IVP; Site: right femoral; em 10:36 Follow up: Response: No adverse reaction; Marked relief of symptoms; Nausea is decreasedem 10:32 Drug: NS 0.9% 1000 ml Route: IV; Rate: 125 ml/hr; Site: right femoral; em 13:06 Follow up: IV Status: Infusion continued upon transfer em Intake: 10:32 IV: 500ml; Total: 500ml. em Outcome: 10:18 ER care complete, transfer ordered by . [facility] 12:59 Transferred by ground EMS to [facility], Transfer form completed. em X-rays sent w/ patient. 12:59 Condition: stable 12:59 Instructed on the need for transfer, Demonstrated understanding of instructions. 13:08 Patient left the ED. em Signatures: Dispatcher [employer] Rush Calderon MD MD cha Munoz, Edgar, RN RN em Manjit Coughlin RN RN jlSue Patel [facility] Christy Astudillo Corrections: (The following items were deleted from the chart) 10:23 10:12 SandoSTATIN 25 mcg/h IV at calculated rate in right antecubital em em
[2019-12-13] MEDS ORDERED: ONDANSETRON 4 MG/2 ML VIAL ONE (10:29)
[2019-12-13 10:30] LABS: ALT/SGPT 13 U/L (12-78); AST/SGOT 14 U/L (15-37); Albumin 1.6 g/dL (3.4-5.0); Alkaline Phosphatase 113 U/L (45-117); BUN Blood Urea Nitrogen 13 mg/dL (7-18); Bicarbonate 30 mmol/L (21-32); Bilirubin Direct < 0.1 mg/dL (0-0.2); Bilirubin Total 0.1 mg/dL (0.2-1.0); Glucose Level 171 mg/dL (74-106); Lipase 67 U/L (73-393); Magnesium 1.8 mg/dL (1.8-2.4); NT PRO-BNP 52 pg/mL (<125); Potassium 3.5 mmol/L (3.5-5.1); Protein, Total 5.1 g/dL (6.4-8.2); Sodium Level 142 mmol/L (136-145); Troponin (Emerg Dept Use Only) < 0.02 ng/mL (0.0-0.045)
[2019-12-13 10:39] LABS: Absolute Lymphocytes (CBC) 0.9 K/uL (0.7-4.9); Basophils % 0.6 % (0-1.3); Lymphocytes % 7.5 % (15.3-44.8); MPV 8.1 fL (7.6-11.3)
[2019-12-13 10:45] LABS: Hematocrit 19.3 % (39.6-49.0)
[2019-12-13] MEDS ORDERED: NA CHLORIDE 0.9% 250 ML ONE (11:20)
--- NOTE | 2019-12-13 11:21 | RAD REPORT ---
EXAM DESCRIPTION: Mary Single View12/13/2019 10:30 am CLINICAL HISTORY: sob COMPARISON: August 2019 FINDINGS: The lungs appear clear of acute infiltrate. The heart is normal size IMPRESSION: No acute abnormalities displayed
[2019-12-13 13:22] VITALS: BP 91/63; TEMP 97.6; O2SAT 99
--- NOTE | 2019-12-15 07:28 | EKG ---
Test Date: 2019-12-13 Test Time: 10:04:05 Mechanical Planner: ALISA MEASUREMENT RESULTS: Intervals: Rate: 114 DC: 132 QRSD: 80 QT: 342 QTc: 471 [place]: P: 76 DC: 132 QRS: 63 T: 63 INTERPRETIVE STATEMENTS: Sinus tachycardia Otherwise normal ECG Compared to ECG 10/13/2019 15:56:29 Sinus rhythm no longer present Electronically Signed On 12-15-19 07:23:58 LINING MAKER HAND by Charly Faustin
== END 2019-12-13 13:08 | disposition short-term general hospital (02) ==
LOC: ER 09:20
PROC: 30233N1 Transfusion of Nonautologous Red Blood Cells into Peripheral Vein, Percutaneous Approach (ICD-10-PCS; principal; 2019-12-13)
PROC: 06HM33Z Insertion of Infusion Device into Right Femoral Vein, Percutaneous Approach (ICD-10-PCS; 2019-12-13)
DX: D64.9 Anemia, unspecified (principal); I95.9 Hypotension, unspecified; K86.89 Other specified diseases of pancreas; Z88.3 Allergy status to other anti-infective agents; Z88.8 Allergy status to other drugs, medicaments and biological substances; F84.0 Autistic disorder
CPT/HCPCS: 96365; 93005; 85025; 80048; 36415; 86900; 83735; 86850; 85610; 86901; 80076; 84484; 83690; 83880; 71045; 96375; 99285; 96366; 36430; 36556; J2354 ×2; C9113 ×2; P9016; J7050 ×2; J7040; J7030; J2405

== ENCOUNTER 2020-01-03 21:28 | Emergency (ER) | payer OTHER ==
--- OUTSIDE RECORDS SUMMARY | 2020-01-03 21:32 | XMS REPORT | Clinical Summary ---
:1990 Author Organization [facility] Address [address] [place] [address] Care Team Providers Name Role Phone Zac Coughlin Montrell Primary Care Provider [facility] Unavailable Allergies Active Allergy Reactions Severity [...] Active 500 MG tablet by mouth daily. senna (SENOKOT) 8.6 Take 2 60 [...] 6 (six) hours for 30 days. traMADoL (ULTRAM) Take 2 30 tablet 0 01/04/20 Ac tive 50 mg tablet tablets (100 0 20 mg total) by mouth every 6 (six) hours as needed for Pain for up to 28 days. Max Daily Amount: 400 mg pantoprazole Take 1 tablet 180 tablet 0 Ac tive (PROTONIX) 40 MG (40 mg total) 0 tablet by mouth 2 (two) times daily. midodrine Take 1 tablet 90 tablet 0 Active (PROAMATINE) 10 MG (10 mg total) 0 tablet by mouth 3 (three) times daily. nystatin [...] 20 (S top Taking at capsule Discharge) midodrine Take 2 90 tablet 0 12/18/19 Discontinu ed (PROAMATINE) 5 MG tablets (10 0 20 (Reorder) tablet mg total) by mouth 3 (three) times daily. traMADoL (ULTRAM) Take 2 30 tablet 0 12/07/19 Di scontinued 50 mg tablet tablets (100 0 20 (Reo rder) mg total) by mouth every 6 (six) hours as needed for Pain. Max Daily Amount: 400 mg pantoprazole Take 1 tablet 168 tablet 0 12/18/19 Di scontinued (PROTONIX) 40 MG (40 mg total) 0 20 (Reorder) tablet by mouth 2 (two) times daily for 84 days. ondansetron Take 4 mg by 0 12/18/19 Disco ntinued (ZOFRAN) 4 MG mouth every 0 20 (Sto p Taking at tablet 12 (twelve) Discharg e) hours as needed for Nausea. Active Problems Problem Noted Date Upper GI [...] Encounters Date Type Specialty Care Team Description Anesthesia Event Gastroenterology Forrest Abarca 0 MD Brianna Alas Nichole Carrolynn, CRNA Surgery Gastroenterology Marvin Champagne UPPER EN DOSCOPY 0 MD [facility] Encounter General Internal Horn Duode nal ulcer (Primary Dx); 0 - Medicine Ramiro Gastrointestina l hemorrhage, unspecified gastrointestinal hemorrhage type; MD Dave Hemorrhagic shock (HCC); 0 Mouna, Acute blood los s anemia; Shanti Toro, Epigastric pa in; Acute respiratory insufficiency, postope rative Wyatt Edgar MD Gadicherla, Sonal Muralinath, MD Bartsch, Perla Kwong MD Telephone Critical Care Horn Transfer 0 Medicine Dave Rubio MD Surgery Gastroenterology Wilmer Santiago UPPER 0 MD aKi ENDOSCOPY,SUBMU COSAL INJECTION Anesthesia Event Gastroenterology Ashley Crowder 0 MD Jarocho Godwin Monte Dean, MD Hospital Encounter General Internal Dutor Chavarria, Montrell cute blood loss anemia; 0 [...] Celia Anesthesia Event Rashawn, 0 MD Shubham Romero, Shaji Crowell MD Surgery Marc Clark CHOLECYSTEC LOIS 0 MD Tony Anesthesia Event Gastroenterology Marvel, 0 MD Moreno Hernandesyany, Giancarlo, [facility] Surgery Gastroenterology Wilmer Santiago UPPER 0 MD Kai ENDOSCOPY,ULTRA SOUND Hospital Encounter General Internal Yaa, Gastr ic varices; 0 - Richie Chen MD Other acute pancreatitis with uninfected necrosis; JessicaCatherine Acute biliary p ancreatitis with uninfected necrosis; 0 Khadijah Proctor, Splenic vein thrombosis; Acute respiratory insufficiency, postope rative; Jorge Arcos MD Other shock ([facility]); Snow Adams Acute posto perative pain; MD Aristeo Leukocytosis, unspecified type; Oscar, S/P splenectomy during current hospitalization; Negin Connors, Acute blood loss anemia; Hemorrhagic steff ck (HCC); Metabolic acido sis Documentation Internal Medicine Yaa, 0 MD April Telephone Gastroenterology Trinidad Cuellar Melena 0 MD Celia Lab Requisition Lab 0 Anesthesia Event Gastroenterology Elver Avendaño 0 MD Get Surgery Gastroenterology Naz, Uriah ERCP 0 [facility] Encounter Cardiology Allahham, Obstructi ve jaundice; 0 - MD Linda Peripancreatic fluid collection; Gadicherla, History of panc reatitis; 0 Katina Leukocytosis, u nspecified type; MD Wing Acute blood loss anemia Jacob Pinon MD Zaheer, Amer, MD Travel 0 after 01/02/2019 Immunizations Name Administration Dates Next Due HiB [...] Sign Reading Time Taken Comments Blood Pressure 100/64 12/18/2019 2:54 PM MANAGER OF CHANGE Pulse 60 12/18/2019 2:54 PM [employer]GER OF CHANGE Temperature 36.5 C (97.7 F) 12/18/2019 2:54 PM [employer]GER OF CHANGE Respiratory Rate 18 12/18/2019 2:54 PM [employer]NAGER OF CHANGE Oxygen Saturation 97% 12/18/2019 2:54 PM [employer]NAGER OF CHANGE Inhaled Oxygen Concentration 40% 12/14/2019 10:30 AM [employer]GER OF CHANGE Weight 54.4 kg (119 lb 14.9 oz) 12/15/2019 12:56 AM [employer]NAGER OF CHANGE Height 177.8 cm (5' 10") 12/04/2019 11:58 PM CDT Body Mass Index 17.21 12/04/2019 11:58 PM CDT Plan of Treatment Health Maintenance Due Date Last Done Comments PNEUMOCOCCAL VACCINE 0-64 YRS (1 of 1 - PPSV23) 12/19/2019 10/24/2019 INFLUENZA VACCINE Completed 10/24/2019 Implants Implanted Type Area Extension Course Coordinator Device Shelf Model / Identifier Expiration Date Ser ial / Lot Stent Bili Duodenal [id number] - [id number] IMPLANTS MIKAYLA STON SCI:ENDO 3432 / Implanted: Qty: 1 on 02/15/2019 by Uriah Childs at [facility] / Procedures Procedure Name Priority Date/Time Associated Diagnosis Comme nts URINALYSIS W/ REFLEX Routine 12/18/2019 Results for URINE CULTURE 3:46 PM [employer]NAGER OF CHANGE this procedure are in the results section. HEMOGLOBIN AND STAT 12/18/2019 Results for HEMATOCRIT 1:34 PM [employer]NAGER OF CHANGE this procedure are in the results section. PROTHROMBIN TIME/INR Routine 12/18/2019 Results for 5:38 AM [employer]GER OF [employer]ANGE this procedure are in the results section. PHOSPHORUS Routine 12/18/2019 Results for 5:38 AM [employer]GER [employer] CHANGE this procedure are in the results section. MAGNESIUM Routine 12/18/2019 Results for 5:38 AM [employer]NAGER [employer] CHANGE this procedure are in the results section. BASIC METABOLIC PANEL Routine 12/18/2019 Result s for (7) 5:38 AM [employer]GER OF CHANGE this procedure are in the results section. CBC (HEMOGRAM ONLY) Routine 12/18/2019 Results for 5:38 AM [employer]GER OF CHANGE this procedure are in the results section. CT ABDOMEN/PELVIS LAURA 12/18/2019 Results fo r WITH IV CONTRAST 2:06 AM MANAGER OF CHANGE this proced ure are in the results section. HEMOGLOBIN AND Routine 12/17/2019 Results for HEMATOCRIT 2:39 PM [employer]GER [employer] CHANGE this procedure are in the results section. HEPATIC FUNCTION Routine 12/17/2019 Results for PANEL 3:31 AM [employer]ANGE this procedure are in the results section. PROTHROMBIN TIME/INR Routine 12/17/2019 Results for 3:31 AM [employer]GER OF CHANGE this procedure are in the results section. PHOSPHORUS Routine 12/17/2019 Results for 3:31 AM [employer]NAGER OF CHANGE this procedure are in the results section. MAGNESIUM Routine 12/17/2019 Results for 3:31 AM [employer]NAGER OF CHANGE this procedure are in the results section. BASIC METABOLIC PANEL Routine 12/17/2019 Result s for (7) 3:31 AM [employer]GER OF CHANGE this procedure are in the results section. CBC (HEMOGRAM ONLY) Routine 12/17/2019 Results for 3:31 AM [employer]NAGER OF CHANGE this procedure are in the results section. HEMOGLOBIN AND Routine 12/17/2019 Results for HEMATOCRIT 3:31 AM [employer]NAGER OF CHANGE this procedure are in the results section. HEMOGLOBIN AND Routine 12/16/2019 Results for HEMATOCRIT 3:09 PM [employer]GER [employer] CHANGE this procedure are in the results section. POCT-GLUCOSE METER Routine 12/16/2019 Results f or 12:51 PM [employer]GER [employer] CHANGE this procedure are in the results section. LACTIC ACID, VENOUS LAURA 12/16/2019 Results for 9:33 AM [employer]NAGER [employer] CHANGE this procedure are in the results section. HEMOGLOBIN AND Routine 12/16/2019 Results for HEMATOCRIT 9:33 AM [employer]NAGER [employer]ANGE this procedure are in the results section. LIPASE Add-On 12/16/2019 Results for 4:24 AM [employer]NAGER OF CHANGE this procedure are in the results section. HEPATIC FUNCTION Add-On 12/16/2019 Results for PANEL 4:24 AM [employer]GER [employer]ANGE this procedure are in the results section. PROTHROMBIN TIME/INR Routine 12/16/2019 Results for 4:24 AM [employer]NAGER OF CHANGE this procedure are in the results section. PHOSPHORUS Routine 12/16/2019 Results for 4:24 AM [employer]NAGER OF CHANGE this procedure are in the results section. MAGNESIUM Routine 12/16/2019 Results for 4:24 AM [employer]NAGER [employer] CHANGE this procedure are in the results section. BASIC METABOLIC PANEL Routine 12/16/2019 Result s for (7) 4:24 AM [employer]NAGER [employer] CHANGE this procedure are in the results section. CBC (HEMOGRAM ONLY) Routine 12/16/2019 Results for 4:24 AM [employer]NAGER [employer] CHANGE this procedure are in the results section. HEMOGLOBIN AND Routine 12/15/2019 Results for HEMATOCRIT 9:22 PM [employer]NAGER [employer] CHANGE this procedure are in the results section. HEMOGLOBIN AND Routine 12/15/2019 Results for HEMATOCRIT 5:02 PM [employer]GER [employer]ANGE this procedure are in the results section. OXYGEN SATURATION, STAT 12/15/2019 Results f or MEASURED 1:48 PM [employer]GER [employer]ANGE this procedure are in the results section. OXYGEN SATURATION, Routine 12/15/2019 Results f or MEASURED 1:14 PM [employer] this procedure are in the results section. HEMOGLOBIN AND Routine 12/15/2019 Results for HEMATOCRIT 10:32 AM [employer] CHANGE this procedure are in the results section. HEPATIC FUNCTION Routine 12/15/2019 Results for PANEL 3:47 AM [employer]ANGE this procedure are in the results section. PROTHROMBIN TIME/INR Routine 12/15/2019 Results for 3:47 AM [employer]NAGER [employer] CHANGE this procedure are in the results section. PHOSPHORUS Routine 12/15/2019 Results for 3:47 AM [employer]NAGER OF CHANGE this procedure are in the results section. MAGNESIUM Routine 12/15/2019 Results for 3:47 AM [employer]NA[employer] CHANGE this procedure are in the results section. BASIC METABOLIC PANEL Routine 12/15/2019 Result s for (7) 3:47 AM [employer] CHANGE this procedure are in the results section. CBC (HEMOGRAM ONLY) Routine 12/15/2019 Results for 3:47 AM [employer]NAGER [employer] CHANGE this procedure are in the results section. PREPARE LEUKO-REDUCED STAT 12/14/2019 Result s for RBC 11:54 PM [employer]NAGER [employer] CHANGE this procedure are in the results section. HEMOGLOBIN AND Routine 12/14/2019 Results for HEMATOCRIT 9:49 PM [employer]GER [employer] CHANGE this procedure are in the results section. LACTIC ACID, VENOUS LAURA 12/14/2019 Results for 12:44 PM [employer]NA[employer] CHANGE this procedure are in the results section. HEMOGLOBIN AND Routine 12/14/2019 Results for HEMATOCRIT 11:29 AM [employer]NAGER [employer] CHANGE this procedure are in the results section. REPORT OF PROCEDURE - 12/14/2019 ENDOSCOPY URL 8:27 AM MANAGER OF CHANGE PROTHROMBIN TIME/INR Routine 12/14/2019 Results for 4:34 AM MANAGER OF CHANGE this procedure are in the results section. APTT Routine 12/14/2019 Results for 4:34 AM MANAGER OF CHANGE this procedure are in the results section. PHOSPHORUS Routine 12/14/2019 Results for 4:34 AM [employer]NAGER [employer] CHANGE this procedure are in the results section. MAGNESIUM Routine 12/14/2019 Results for 4:34 AM [employer]NAGER OF CHANGE this procedure are in the results section. BASIC METABOLIC PANEL Routine 12/14/2019 Result s for (7) 4:34 AM [employer]NAGER OF CHANGE this procedure are in the results section. CBC (HEMOGRAM ONLY) Routine 12/14/2019 Results for 4:34 AM [employer]NAGER OF CHANGE this procedure are in the results section. TRANSFUSE Routine 12/14/2019 LEUKO-REDUCED RED 1:09 AM [employer]NAGER OF CHANGE BLOOD CELLS BLOOD GAS, ARTERIAL STAT 12/14/2019 Results for 1:00 AM [employer]ANGE this procedure are in the results section. HEMOGLOBIN AND Routine 12/14/2019 Results for HEMATOCRIT 1:00 AM [employer]NAGER [employer] CHANGE this procedure are in the results section. IR EMBOLIZATION Routine 12/13/2019 Results for ARTERIAL 11:25 PM [employer]NAGER [employer] CHANGE this procedure are in the results section. TRANSFUSE Routine 12/13/2019 LEUKO-REDUCED RED 10:06 PM [employer]NAGER OF CHANGE BLOOD CELLS SARS-COV2/RT-PCR Routine 12/13/2019 Results for ([facility]) 5:36 PM [employer]NAGER OF CHANGE this proce dure are in the results section. FIBRINOGEN Add-On 12/13/2019 Results for 5:31 PM [employer]GER OF CHANGE this procedure are in the results section. PT/APTT Routine 12/13/2019 Results for 5:31 PM [employer]ANGE this procedure are in the results section. PROTHROMBIN TIME/INR STAT 12/13/2019 Results for 5:31 PM [employer]NAGER [employer] CHANGE this procedure are in the results section. UPPER ENDOSCOPY 12/13/2019 Gastrointestinal 4:56 PM [employer]NAGER OF CHANGE hemorrhage, unspecified gastrointestinal hemorrhage type TYPE AND SCREEN, Routine 12/13/2019 Results for AUTOMATED 4:27 PM [employer]NAGER OF CHANGE this procedure are in the results section. MAGNESIUM Routine 12/13/2019 Results for 4:27 PM [employer]NAGER OF CHANGE this procedure are in the results section. COMPREHENSIVE Routine 12/13/2019 Results for METABOLIC PANEL 4:27 PM MANAGER OF CHANGE this procedu re are in the results section. CBC (HEMOGRAM ONLY) Routine 12/13/2019 Results for 4:27 PM [employer]NAGER OF CHANGE this procedure are in the results section. REPORT OF PROCEDURE - 12/13/2019 Result s for ENDOSCOPY SCAN this procedur e are in the results section. REPORT OF PROCEDURE - 12/08/2019 ENDOSCOPY URL 8:16 AM MANAGER OF CHANGE POCT-GLUCOSE METER Routine 12/07/2019 Results f or 12:44 PM [employer]NAGER [employer] CHANGE this procedure are in the results section. POCT-GLUCOSE METER Routine 12/07/2019 Results f or 6:04 AM MANAGER OF CHANGE this procedure are in the results section. CBC W/PLT COUNT & Routine 12/07/2019 Results fo r AUTO DIFFERENTIAL 5:47 AM [employer]NAGER OF CHANGE this proce dure are in the results section. PHOSPHORUS Routine 12/07/2019 Results for 5:47 AM [employer]NAGER OF CHANGE this procedure are in the results section. MAGNESIUM Routine 12/07/2019 Results for 5:47 AM MANAGER OF CHANGE this procedure are in the results section. PROTHROMBIN TIME/INR Routine 12/07/2019 Results for 5:47 AM MANAGER OF CHANGE this procedure are in the results section. BASIC METABOLIC PANEL Routine 12/07/2019 Result s for (7) 5:47 AM MANAGER [employer] CHANGE this procedure are in the results section. CBC W/PLT COUNT & Routine 12/07/2019 Results fo r AUTO DIFFERENTIAL 5:47 AM MANAGER OF CHANGE this proce dure are in the results [...] this procedure are in the results section. H. PYLORI ANTIGEN, Routine 12/05/2019 Results f or STOOL 7:28 PM CDT this procedure are in the [...] proce dure are in the results section. AMYLASE, BODY FLUID Routine 12/05/2019 5:36 PM CDT LACTATE DEHYDROGENASE Routine 12/05/2019 Result s for [...] RHYTHM STRIP - SCAN 02/26/2019 4:18 PM MANAGER OF CHANGE TRANSFUSION SERVICE 02/19/2019 6:00 PM REPORT - SCAN [employer]GER [employer] CHANGE RHYTHM STRIP - SCAN 02/19/2019 11:21 AM MANAGER OF CHANGE PREPARE LEUKO-REDUCED Routine 02/18/2019 11:54 PM Results for this RBC [employer]ANGE procedure are i n the results section . TRANSFUSION SERVICE 02/18/2019 6:00 PM REPORT - SCAN [employer]GER [employer] CHANGE FERRITIN Routine 02/18/2019 1:36 PM Results for this [employer]GER [employer] CHANGE procedure are i n the results section . COMPREHENSIVE METABOLIC STAT 02/18/2019 1:36 PM Results for this PANEL [employer]ANGE procedure are i n the results section . HEMOGLOBIN AND Routine 02/18/2019 12:16 PM Result s for this HEMATOCRIT [employer]NAGER OF CHANGE procedure are i n the results section . TRANSFUSE LEUKO-REDUCED Routine 02/17/2019 2:53 PM RED BLOOD CELLS [employer]GER [employer] CHANGE TYPE AND SCREEN, Routine 02/17/2019 9:56 AM Resu lts for this AUTOMATED [employer]NAGER OF CHANGE procedure are i n the results section . HEMOGLOBIN AND STAT 02/17/2019 6:19 AM Result s for this HEMATOCRIT [employer]NAGER OF CHANGE procedure are i n the results section . LIPASE Routine 02/17/2019 4:18 AM Results for this [employer] CHANGE procedure are i n the results section . IRON, TIBC, % SAT. Routine 02/17/2019 4:18 AM Re sults for this (WITHOUT FERRITIN) [employer]NAGER OF CHANGE procedure are in the results section . TSH/FREE T4 IF INDICATED Routine 02/17/2019 4:18 AM Results for this [employer] CHANGE procedure are i n the results section . VITAMIN B12 AND FOLATE Routine 02/17/2019 4:18 AM Results for this [employer] CHANGE procedure are i n the results section . BASIC METABOLIC PANEL Routine 02/17/2019 4:18 AM Results for this (7) [employer]ANGE procedure are i n the results section . CBC (HEMOGRAM ONLY) Routine 02/17/2019 4:18 AM R esults for this [employer]ANGE procedure are i n the results section . HEMOGLOBIN AND Routine 02/16/2019 10:19 AM Result s for this HEMATOCRIT [employer] CHANGE procedure are i n the results section . LIPASE Add-On 02/16/2019 4:23 AM Results for this [employer] CHANGE procedure are i n the results section . COMPREHENSIVE METABOLIC Routine 02/16/2019 4:23 AM Results for this PANEL [employer]ANGE procedure are i n the results section . CBC (HEMOGRAM ONLY) Routine 02/16/2019 4:23 AM R esults for this [employer]GER [employer] CHANGE procedure are i n the results section . PROTHROMBIN TIME/INR Routine 02/16/2019 4:23 AM Results for this [employer] CHANGE procedure are i n the results section . PT/APTT Routine 02/16/2019 4:23 AM Results for this [employer] CHANGE procedure are i n the results section . HEPATIC FUNCTION PANEL Routine 02/16/2019 4:23 AM Results for this [employer]ANGE procedure are i n the results section . REPORT OF PROCEDURE - 02/15/2019 12:51 PM ENDOSCOPY URL MANAGER OF CHANGE FL ERCP Routine 02/15/2019 12:32 PM Results for this [employer] CHANGE procedure are i n the results section . CYTOLOGY REQUEST Routine 02/15/2019 12:26 PM Resu lts for this [employer]GER [employer] CHANGE procedure are i n the results section . CYTOLOGY AP Routine 02/15/2019 12:26 PM Results for this [employer]ANGE procedure are i n the results section . CBC W/PLT COUNT & AUTO STAT 02/15/2019 11:55 AM Results for this DIFFERENTIAL [employer]ANGE procedure are i n the results section . CBC W/PLT COUNT & AUTO STAT 02/15/2019 11:55 AM Results for this DIFFERENTIAL [employer]ANGE procedure are i n the results section . ERCP,BILIARY STENT 02/15/2019 11:00 AM Jaundice MANAGER OF CHANGE ERCP,BALLOON SWEEPING 02/15/2019 11:00 AM Jaundice MANAGER OF CHANGE ERCP 02/15/2019 11:00 AM Jaundice [employer]NAGER OF CHANGE PROTHROMBIN TIME/INR Routine 02/15/2019 6:00 AM Results for this [employer]ANGE procedure are i n the results section . PT/APTT Routine 02/15/2019 6:00 AM Results for this [employer]ANGE procedure are i n the results section . BASIC METABOLIC PANEL Routine 02/15/2019 6:00 AM Results for this (7) [employer]ANGE procedure are i n the results section . HEPATIC FUNCTION PANEL Routine 02/15/2019 6:00 AM Results for this [employer]ANGE procedure are i n the results section . (CELLAVISION MANUAL Routine 02/14/2019 6:24 AM R esults for this DIFF) [employer]ANGE procedure are i n the results section . CBC W/PLT COUNT & AUTO Routine 02/14/2019 6:24 AM Results for this DIFFERENTIAL [employer]ANGE procedure are i n the results section . CBC W/PLT COUNT & AUTO Routine 02/14/2019 6:24 AM Results for this DIFFERENTIAL [employer]ANGE procedure are i n the results section . PROTHROMBIN TIME/INR Routine 02/14/2019 4:34 AM Results for this [employer]ANGE procedure are i n the results section . PT/APTT Routine 02/14/2019 4:34 AM Results for this [employer]ANGE procedure are i n the results section . BASIC METABOLIC PANEL Routine 02/14/2019 4:34 AM Results for this (7) [employer] procedure are i n the results section . HEPATIC FUNCTION PANEL Routine 02/14/2019 4:34 AM Results for this [employer]ANGE procedure are i n the results section . after 01/02/2019 Results Urinalysis w/Microscopic + Reflex to Culture (12/18/2019 3:46 PM MANAGER OF CHANGE) Color, UA Light Yellow [facility] Clarity, UA Clear [facility] Specific [place], 1.015 1.001 - 1.035 [facility] pH, UA 6.5 5.0 - 8.0 [facility] Protein, UA Negative Negative [facility] Glucose, UA Negative Negative [facility] Ketones, UA 10 mg/dL (A) Negative [facility] Bilirubin, UA Negative Negative [facility] Blood, UA Negative Negative [facility] Nitrite, UA Negative Negative [facility] Leukocytes, UA Negative Negative [facility] Urobilinogen, UA 0.2 0.2 - 1.0 mg/dL [facility] RBC, UA 0 /HPF [facility] WBC, UA <1 /HPF [facility] Specimen Source [facility] Specimen Urine - Urine (substance) Narrative Performed At Consumer Insight Manager ID - [[id number]] [facility] Performing Organization Address City/[facility] Phone Number [address] [address] CENTER Hemoglobin and hematocrit (12/18/2019 1:34 PM MANAGER OF CHANGE)Only the most recent of23 resultswithin the time period is included. Pathologist Sig nature Hemoglobin 9.9 (L) 13.7 - 17.5 GM/DL [facility] Hematocrit 30.5 (L) 40.1 - 51.0 % [facility] Specimen Blood Narrative Performed At Consumer Insight Manager ID - [id number] [facility] Performing Organization Address City/[facility]ode Phone Number [address] [address] CENTER Prothrombin time/INR (12/18/2019 5:38 AM MANAGER OF CHANGE)Only the most recent of17 results within the time period is included. Pathologist Sig nature Protime 16.8 (H) 11.9 - 14.2 seconds [facility] INR 1.40 <=5.90 [facility] Specimen Blood Narrative Performed At Effective 07/03/2018: PT Reference Range [facility] Change New: 11.9-14.2 Previous: 11.7-14.7 RECOMMENDED COUMADIN/WARFARIN INR THERAPY RANGES STANDARD DOSE: 2.0-3.0 Includes: PROPHYLAXIS for venous thrombosis, systemic embolization; TREATMENT for venous thrombosis and/or pulmonary embolus. HIGH RISK: Target INR is 2.5-3.5 for patients wiht mechanical heart valves. Performing Organization Address City/State/Zipcode Phone Number [address] [address] CENTER CBC (Hemogram only) (12/18/2019 5:38 AM MANAGER OF CHANGE)Only the most recent of20 results within the time period is included. Pathologist Sig nature WBC 8.3 3.5 - 10.5 K/L [facility] RBC 2.73 (L) 4.63 - 6.08 M/L [facility] Hemoglobin 8.3 (L) 13.7 - 17.5 GM/DL [facility] Hematocrit 25.5 (L) 40.1 - 51.0 % [facility] MCV 93.4 (H) 79.0 - 92.2 fL [facility] MCH 30.4 25.7 - 32.2 pg [facility] MCHC 32.5 32.3 - 36.5 GM/DL [facility] RDW 15.6 (H) 11.6 - 14.4 % [facility] Platelets 626 (H) 150 - 450 K/CU MM [facility] MPV 9.6 9.4 - 12.4 fL [facility] nRBC 0 0 - 0 /100 WBC [facility] Specimen Blood Performing Organization Address City/State/Zipcode Phone Number [facility] [address] [place] [address] CENTER Phosphorus (12/18/2019 5:38 AM MANAGER OF CHANGE)Only the most recent of17 resultswithin the time period is included. Pathologist Sig nature Phosphorus 3.8 2.3 - 4.7 mg/dL [facility] Specimen Blood Narrative Performed At Consumer Insight Manager HELIO Hernandez [facility] Performing Organization Address City/State/Zipcode Phone Number [facility] [address] [place] [address] CENTER Magnesium (12/18/2019 5:38 AM MANAGER OF CHANGE)Only the most recent of19 resultswithin the time period is included. Pathologist Sig nature Magnesium 1.7 1.6 - 2.6 mg/dL [facility] Specimen Blood Narrative Performed At Consumer Insight Manager HELIO SOTERO Hernandez [facility] Performing Organization Address City/[facility]/Zipcode Phone Number [address] [address] CENTER Basic Metabolic Panel (12/18/2019 5:38 AM MANAGER OF CHANGE)Only the most recent of26 results within the time period is included. Sodium 139 136 - 145 meq/L [facility] Potassium 3.5 3.5 - 5.1 meq/L [facility] Chloride 106 98 - 107 meq/L [facility] CO2 29 22 - 29 meq/L [facility] BUN 4 (L) 7 - 21 mg/dL [facility] Creatinine 0.51 (L) 0.57 - 1.25 [facility] mg/dL [facility] HEALTHCARE Glucose 67 (L) 70 - 105 mg/dL [facility] Calcium 7.5 (L) 8.4 - 10.2 [facility] mg/dL [facility] EGFR 191Comment: mL/min/1.73 sq [facility] ESTIMATED GFR IS NOT [facility] ACCURATE CENTER CREATININE CLEARANCE IN PREDICTING GLOMERULAR FILTRATION RATE. ESTIMATED GFR IS NOT APPLICABLE FOR DIALYSIS PATIENTS. Specimen Blood Narrative Performed At Consumer Insight Manager HELIO Hernandez [facility] Performing Organization Address City/State/Zipcode Phone Number [facility] [address] [place] [address] abdomen/pelvis with IV contrast (12/18/2019 2:06 AM MANAGER OF CHANGE)Only the most recent of2 resultswithin the time period is included. Specimen Narrative Performed At FINAL REPORT [employer] EXAM: CT of the abdomen and pelvis, with contrast CLINICAL HISTORY: Abdominal pain. TECHNIQUE: CT of the abdomen and pelvis was performed with intravenous contrast administration. T his exam was performed according to our departmental dose optim ization program which includes automated exposure control, adj ustment of the mA and/or kV according to patient's size and/or use o f iterative reconstructive technique. COMPARISON: CT abdomen and pelvis 11/06. FINDINGS: LOWER CHEST: Small bilateral pleural eff usions, decreased in the interval. Trace pericardial fluid. HEPATOBILIARY: Status post cholecystecto my. PANCREAS: Parenchymal atrophy. Soft tiss ue rind surrounding the pancreas which may represent sequela of prior pancreatitis, similar to prior exam. SPLEEN: Status post splenectomy. ADRENALS: Within normal limits. KIDNEYS/URETERS: Within normal limits. URINARY BLADDER: Distended and thin-wall ed.. REPRODUCTIVE ORGANS: Within normal limit s. BOWEL/MESENTERY: Diffuse mural thickenin g of the stomach with submucosal edema, decreased in the inter lindsay. Diffuse mural thickening of the rectum, which may represent a pro ctitis. PERITONEUM/RETROPERITONEUM: Previously n oted small fluid collection adjacent to the pancreatic tail has decr eased in size with trace residual fluid noted. Small abdominal as cites. No free air. VESSELS: Within normal limits. LYMPH NODES: No abdominal or pelvic lymp hadenopathy. SOFT TISSUES: Midline upper abdominal juárez rgical scar. BONES: Generalized osteopenia. IMPRESSION: Diffuse mural thickening of the rectum w hich may represent a proctitis (infectious or inflammatory). No bowel obstruction, free air or fluid collection. Diffuse mural thickening of the stomach with submucosal edema, decreased in the interval. Soft tissue rind surrounding the pancrea s which may represent granulation tissue related to prior panc reatitis, similar to prior exam however correlate clinically to exc lude acute pancreatitis. Interval decrease in size of small fluid collection adjacent to the pancreatic tail which may represent a po stsurgical seroma. Small abdominal ascites. Small bilateral pleural effusions, decre ased. Signed: Meghan Mota MD Report Verified Date/Time: 12/18/2019 02:28:03 Procedure Note Interface, External Ris In - 12/18/2019 2:31 AM MANAGER OF CHANGE FINAL REPORT EXAM: CT of the abdomen and pelvis, with contrast CLINICAL HISTORY: Abdominal pain. TECHNIQUE: CT of the abdomen and pelvis was performed with intravenous contrast administration. Th is exam was performed according to our departmental dose optim ization program which includes automated exposure control, adj ustment of the mA and/or kV according to patient's size and/or use o f iterative reconstructive technique. COMPARISON: CT abdomen and pelvis 12/03. FINDINGS: LOWER CHEST: Small bilateral pleural eff usions, decreased in the interval. Trace pericardial fluid. HEPATOBILIARY: Status post cholecystecto my. PANCREAS: Parenchymal atrophy. Soft tiss ue rind surrounding the pancreas which may represent sequela of prior pancreatitis, similar to prior exam. SPLEEN: Status post splenectomy. ADRENALS: Within normal limits. KIDNEYS/URETERS: Within normal limits. URINARY BLADDER: Distended and thin-wall ed.. REPRODUCTIVE ORGANS: Within normal limit s. BOWEL/MESENTERY: Diffuse mural thickenin g of the stomach with submucosal edema, decreased in the inter lindasy. Diffuse mural thickening of the rectum, which may represent a pro ctitis. PERITONEUM/RETROPERITONEUM: Previously n oted small fluid collection adjacent to the pancreatic tail has decr eased in size with trace residual fluid noted. Small abdominal as cites. No free air. VESSELS: Within normal limits. LYMPH NODES: No abdominal or pelvic lymp hadenopathy. SOFT TISSUES: Midline upper abdominal juárez rgical scar. BONES: Generalized osteopenia. IMPRESSION: Diffuse mural thickening of the rectum w hich may represent a proctitis (infectious or inflammatory). No bowel obstruction, free air or fluid collection. Diffuse mural thickening of the stomach with submucosal edema, decreased in the interval. Soft tissue rind surrounding the pancrea s which may represent granulation tissue related to prior panc reatitis, similar to prior exam however correlate clinically to exc lude acute pancreatitis. Interval decrease in size of small fluid collection adjacent to the pancreatic tail which may represent a po stsurgical seroma. Small abdominal ascites. Small bilateral pleural effusions, decre ased. Signed: Meghan Mota MD Report Verified Date/Time: 12/18/2019 0 2:28:03 Performing Organization Address City/[facility]/Zipcode Phone Number [facility] Hepatic function panel (12/17/2019 3:31 AM MANAGER OF CHANGE)Only the most recent of9 results within the time period is included. Pathologist Sig nature Protein, Total 4.5 (L) 6.0 - 8.3 gm/dL [facility] Albumin 1.9 (L) 3.5 - 5.0 g/dL [facility] Total Bilirubin 0.3 0.2 - 1.2 mg/dL [facility] Bilirubin, Direct 0.2 0.1 - 0.5 mg/dL [facility] Alkaline Phosphatase 82 40 - 150 U/L [facility] AST 12 5 - 34 U/L [facility] ALT 7 6 - 55 U/L [facility] Specimen Blood Narrative Performed At Consumer Insight Manager ID - EDASI [facility] Performing Organization Address City/[facility] [place] [address] CENTER POC-Glucose meter (12/16/2019 12:51 PM MANAGER OF CHANGE)Only the most recent of55 results within the time period is included. POC-Glucose Meter 86 70 - 110 [facility] Comment: mg/dL [facility] : TESTED AT [address], [address] MEDICAL CENTER : Consumer Insight Manager/Donor Relations Manager ID = [id number] for BATSHEVA FREDERICK Specimen Blood Performing Organization Address City/[facility] Cent[facility]ode Phone Number [facility] [address] [phone] [place] Lactic acid, venous (12/16/2019 9:33 AM MANAGER OF CHANGE)Only the most recent of2 results within the time period is included. Pathologist Sig [facility] Lactate, Venous 0.55 0.50 - 2.20 mmol/L [facility] Specimen Blood Narrative Performed At Consumer Insight Manager ID - [facility] Performing Organization Address City/[facility] Cent[facility]ode Phone Number [address] [phone] CENTER Lipase (12/16/2019 4:24 AM MANAGER OF CHANGE)Only the most recent of6 resultswithin the time period is included. Pathologist Sig [facility] Lipase 16 8 - 78 U/L [facility] Specimen Blood Narrative Performed At Consumer Insight Manager ID - [facility] Performing Organization Address City/[facility] Cent[facility]owi Phone Number [address] [phone] [place] Oxygen saturation, measured (12/15/2019 1:48 PM MANAGER OF CHANGE)Only the most recent of2 resultswithin the time period is included. Pathologist Sig [facility] O2 Saturation (Measured) 87.3 % [facility] Specimen Blood Performing Organization Address City/[facility] Centercode Phone Number [address] [address] CENTER Prepare Leuko-Red RBC (12/14/2019 11:54 PM MANAGER OF CHANGE)Only the most recent of3 results within the time period is included. Pathologist Sig nature CROSSMATCH COMPATIBLE SAFETRACE TX Unit ABO A Pos SAFETRACE TX UNIT NUMBER [id number] SAFETRACE TX Status TX_TIMEINCHART SAFETRACE TX Blood Bank Product RED BLOOD CELLS SAFETRACE TX PRODUCT CODE [id number] SAFETRACE TX CROSSMATCH COMPATIBLE SAFETRACE TX Unit ABO A Pos SAFETRACE TX UNIT NUMBER [id number] SAFETRACE TX Status TX_TIMEINCHART SAFETRACE TX Blood Bank Product RED BLOOD CELLS SAFETRACE TX PRODUCT CODE [id number] SAFETRACE TX Specimen Other Performing Organization Address City/[facility] Phone Number SAFETRACE TX REPORT OF PROCEDURE - ENDOSCOPY URL (12/14/2019 8:27 AM MANAGER OF CHANGE) Narrative Performed At This result has an attachment that is no t available. aPTT (12/14/2019 4:34 AM MANAGER OF CHANGE)Only the most recent of2 resultswithin the time period is included. Pathologist Sig nature PTT 26.0 22.5 - 36.0 seconds [facility] Specimen Blood Performing Organization Address [facility] Phone Number [address] [address] [place] Transfuse Leuko-Red RBC (12/14/2019 1:09 AM MANAGER OF CHANGE)Only the most recent of9 resultswithin the time period is included.Blood gas, arterial (12/14/2019 1:00 AM MANAGER OF CHANGE)Only the most recent of9 resultswithin the time period is included. Pathologist Sig nature pH, Arterial 7.56 (H) 7.35 - 7.45 [facility] pCO2, Arterial 27 (L) 35 - 45 mm Hg [facility] pO2, Arterial 212 (H) 80 - 90 mm Hg [facility] O2 Sat, Arterial 99.6 (H) 96.0 - 97.0 % [facility] HCO3, Arterial 23 21 - 29 mmol/L [facility] Base Excess, Arterial 1.9 -2.0 - 3.0 [facility] mmol/L [facility] Patient Temperature 37.5 [facility] FIO2 50.0 [facility] Specimen Blood, Arterial Performing Organization Address City/[facility]/Zipcode Phone Number [address] [address] CENTER IR Embolization Arterial (12/13/2019 11:25 PM MANAGER OF CHANGE) Specimen Narrative Performed At FINAL REPORT [facility] Procedure: Transarterial embolization of gastroduodenal artery. History: Ulcer in the first part of duod enum with large artery with pulsatile bleeding associated with hemor rhagic shock and inability to control the bleeding on endoscopy. Empir ic GDA embolization was requested. Hand Hide Stretcher: Rayshawn Motley M.D. Shank Turner: Jef Rosen Modality: Sonography and fluoroscopy. DOSE REDUCTION: The examination was perf ormed according to departmental dose-optimization program. Fluoro time: 11.7 minutes Radiation dose: 675 mGy air Kerma. Number of images: 48 Sedation: Provided by the ICU team. Anesthesia: Lidocaine local infiltration . Medicines: Not applicable Contrast medium: Isovue 300, 150 cc. Estimated blood loss: < 5 cc. Technique: A discussion of the risks, benefits, and alternatives was carried out with the patient or next of kin. A writt en informed consent was obtained. A universal timeout was performed prior to starting the procedure. The procedure room personnel used person al protective equipment. The operators used sterile gowns and gloves. The patient was laid supine on the proce dure table. The common femoral artery access sites were prepped with chlorhexidine gluconate and draped in the maximal sterile fashio n. The right common femoral artery was loca lized using anatomic and ultrasonographic landmarks. The artery i s patent. Pertinent ultrasound images were stored for docume ntation in the PACS. Using aseptic precautions, real-time ultrasono graphic guidance, after local anesthesia and dermatotomy, the artery w as accessed with a micropuncture device. Eventually a guide wire was placed using standard exchanges. Over the wire a 5 Fr ench short vascular sheath was placed. The sheath was connected to a heparinized saline drip. Over the wire, a 5 [place]an reverse curve catheter was placed. This was followed by selective catheteri zation of the following arteries: Celiac artery This was followed by superselective cath eterization of the following arteries: Common hepatic artery and sharmin roduodenal artery The equipment used for superselective ca theterization was Pro great catheter, direxion catheter, fathom wire . At each catheterization and superselecti ve catheterization, following test injection, a digital subtraction an giography run was performed. The digital subtraction angiography run was repeated in different fluoroscopic projections as and if neede d. Only hand injection was performed in the gastroduodenal artery. Initially the gastroduodenal artery appear to be truncated stump. Lik wyatt because of the previous GI intervention consisting of epinephrin e injection and cauterization. However later on it showe d blowout with active extravasation in the duodenum. This was followed by superselective embolization of the gastroduodenal arter y with cyanoacrylate glue in a 1-3 dilution A post embolization run was performed fr om the guide catheter in the celiac artery. It showed occlusion of th e gastroduodenal artery flushed with its origin. The access site was closed using Angio-S eal. The patient was then transferred to the post procedure area for recovery. The patient was discharged fro m the department in stable condition. Complications: None immediate. Findings: Unremarkable celiac artery. Unremarkable proximal branches of the celiac artery. A stump of the gastroduod enal artery is seen. 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 Selective an giography of the common hepatic artery shows a GDA stump with no active bleeding at this time, unremarkable hepatic artery and ri ght gastric artery. The later runs show blowout of the GDA with extrav asation of the contrast medium in the same location as the endos copic clip. This was embolized with glue successfully. There is complete occlusion of the GDA to the ostium of the GDA from the co mmon hepatic artery. There is no nontarget embolization. Impression: Successful catheterization and angiograp hy of the celiac artery and the gastroduodenal artery with successfu l embolization of the GDA using glue as described above. Thank you for the opportunity to assist in the care of your patient. Signed: Rayshawn Motley MD Report Verified Date/Time: 12/15/2019 10:36:44 Reading Location: [place] [address] Angio Body Reading Room Procedure Note Interface, External Ris In - 12/15/2019 10:38 AM MANAGER OF CHANGE FINAL REPORT Procedure: Transarterial embolization of gastroduodenal artery. History: Ulcer in the first part of duod enum with large artery with pulsatile bleeding associated with hemor rhagic shock and inability to control the bleeding on endoscopy. Empir ic GDA embolization was requested. Hand Hide Stretcher: Rayshawn Motley M.D. Shank Turner: Jef Rosen Modality: Sonography and fluoroscopy. DOSE REDUCTION: The examination was perf ormed according to departmental dose-optimization program. Fluoro time: 11.7 minutes Radiation dose: 675 mGy air Kerma. Number of images: 48 Sedation: Provided by the ICU team. Anesthesia: Lidocaine local infiltration . Medicines: Not applicable Contrast medium: Isovue 300, 150 cc. Estimated blood loss: < 5 cc. Technique: A discussion of the risks, benefits, and alternatives was carried out with the patient or next of kin. A writt en informed consent was obtained. A universal timeout was performed prior to starting the procedure. The procedure room personnel used person al protective equipment. The operators used sterile gowns and gloves. The patient was laid supine on the proce dure table. The common femoral artery access sites were prepped with chlorhexidine gluconate and draped in the maximal sterile fashio n. The right common femoral artery was loca lized using anatomic and ultrasonographic landmarks. The artery i s patent. Pertinent ultrasound images were stored for docume ntation in the PACS. Using aseptic precautions, real-time ultrasono graphic guidance, after local anesthesia and dermatotomy, the artery w as accessed with a micropuncture device. Eventually a guide wire was placed using standard exchanges. Over the wire a 5 Fr ench short vascular sheath was placed. The sheath was connected to a heparinized saline drip. Over the wire, a 5 [place] reverse curve catheter was placed. This was followed by selective catheteri zation of the following arteries: Celiac artery This was followed by superselective cath eterization of the following arteries: Common hepatic artery and sharmin roduodenal artery The equipment used for superselective ca theterization was Pro great catheter, direxion catheter, fathom wire . At each catheterization and superselecti ve catheterization, following test injection, a digital subtraction an giography run was performed. The digital subtraction angiography run was repeated in different fluoroscopic projections as and if neede d. Only hand injection was performed in the gastroduodenal artery. Initially the gastroduodenal artery appear to be truncated stump. Lik wyatt because of the previous GI intervention consisting of epinephrin e injection and cauterization. However later on it showe d blowout with active extravasation in the duodenum. This was followed by superselective embolization of the gastroduodenal arter y with cyanoacrylate glue in a 1-3 dilution A post embolization run was performed fr om the guide catheter in the celiac artery. It showed occlusion of th e gastroduodenal artery flushed with its origin. The access site was closed using Angio-S eal. The patient was then transferred to the post procedure area for recovery. The patient was discharged fro m the department in stable condition. Complications: None immediate. Findings: Unremarkable celiac artery. Unremarkable proximal branches of the celiac artery. A stump of the gastroduod enal artery is seen. 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 Selective an giography of the common hepatic artery shows a GDA stump with no active bleeding at this time, unremarkable hepatic artery and ri ght gastric artery. The later runs show blowout of the GDA with extrav asation of the contrast medium in the same location as the endos copic clip. This was embolized with glue successfully. There is complete occlusion of the GDA to the ostium of the GDA from the co mmon hepatic artery. There is no nontarget embolization. Impression: Successful catheterization and angiograp hy of the celiac artery and the gastroduodenal artery with successfu l embolization of the GDA using glue as described above. Thank you for the opportunity to assist in the care of your patient. Signed: Rayshawn Motley MD Report Verified Date/Time: 12/15/2019 1 0:36:44 Reading Location: [place] [address] Angio Body Reading Room Performing Organization Address City/State/Zipcode Phone Number [facility] SARS-CoV2/RT-PCR (Asymptomatic ONLY) (12/13/2019 5:36 PM MANAGER OF CHANGE)Only the most recent of5 resultswithin the time period is included. SARS-COV2/RT-PCR Negative Not Detected, [facility] Negative, See [facility] external report CENTER for linked test SARS-COV-2 [facility] PERFORMING LAB [facility] Specimen Other - Nasopharyngeal wall structure (b devan structure) Narrative Performed At Negative result for this test determines that [facility] SARS-CoV-2 RNA was not present in the [...] limit of detection for this assay is 100 copies/mL. This SARS CoV-2 test is a [...] revoked under Section 564(g) of the Act. Testing was performed using the N[employer]era SARS-CoV-2 assay. Fact Sheet for Healthcare Providers: https://www.molecular.najera/vivien/LG_LVND-HiL-6 _HCP_Fact_Sheet_51-072688.pdf Fact Sheet for Healthcare Patients: https://www.molecular.najera/vivien/FL_XSAL-UcS-8 _Patient_Fact_Sheet_EN_51-553513D6.pdf Performing Laboratory: [address] [place] [address] Performing Organization Address City/State/Zipcode Phone Number [address] [address] CENTER PT/aPTT (12/13/2019 5:31 PM MANAGER OF CHANGE)Only the most recent of14 resultswithin the time period is included. Pathologist Sig nature Protime 16.8 (H) 11.9 - 14.2 seconds [facility] INR 1.40 <=5.90 [facility] PTT 35.9 22.5 - 36.0 seconds [facility] Specimen Blood Narrative Performed At Effective 07/03/2018: PT Reference Range [facility] Change New: 11.9-14.2 Previous: 11.7-14.7 RECOMMENDED COUMADIN/WARFARIN INR THERAPY RANGES STANDARD DOSE: 2.0-3.0 Includes: PROPHYLAXIS for venous thrombosis, systemic embolization; TREATMENT for venous thrombosis and/or pulmonary embolus. HIGH RISK: Target INR is 2.5-3.5 for patients wiht mechanical heart valves. Performing Organization Address City/[facility]/Zipcode Phone Number [address] [address] CENTER Fibrinogen (12/13/2019 5:31 PM MANAGER OF CHANGE) Pathologist Sig nature Fibrinogen 484 (H) 225 - 434 mg/dl [facility] Specimen Blood Performing Organization Address [facility] Cent[facility] Phone Number [address] [address] CENTER Type and screen, automated (12/13/2019 4:27 PM MANAGER OF CHANGE)Only the most recent of4 resultswithin the time period is included. Pathologist Sig nature ABO/RH AUTOMATED A POSITIVE [facility] Ab Scrn NEGATIVE [facility] Specimen Blood Performing Organization Address [facility] Cent[facility] Phone Number [address] [address] Comprehensive metabolic panel (12/13/2019 4:27 PM MANAGER OF CHANGE)Only the most recent of4 resultswithin the time period is included. Protein, Total 4.3 (L)Comment: 6.0 - 8.[address] [facility] Specimen slightly gm/dL [facility] Albumin 1.8 (L)Comment: 3.5 - 5.0 [facility] Specimen slightly g/dL [facility] Alkaline 90 40 - 150 U/L [facility] Phosphatase [facility] Total Bilirubin 0.6Comment: 0.2 - 1.2 [facility] Specimen slightly mg/dL [facility] Sodium 140 136 - 145 [facility] meq/L [facility] Potassium 4.3Comment: 3.5 - 5.1 [facility] Specimen slightly meq/L [facility] Chloride 109 (H) 98 - 107 [facility] meq/L [facility] CO2 25 22 - 29 meq/L [facility] BUN 13 7 - 21 mg/dL [facility] Creatinine 0.54 (L)Comment: 0.57 - 1.25 [facility] Specimen slightly mg/dL [facility] Glucose 94 70 - 105 [facility] mg/dL [facility] Calcium 7.3 (L) 8.4 - 10.2 [facility] mg/dL [facility] AST 19Comment: 5 - 34 U/L [facility] ALT 12Comment: 6 - 55 U/L [facility] EGFR 179Comment: mL/min/1.73 [facility] ESTIMATED GFR IS sq [facility] NOT ACCURATE MEDICAL CENTER CREATININE CLEARANCE IN PREDICTING GLOMERULAR FILTRATION RATE. ESTIMATED GFR IS NOT APPLICABLE FOR DIALYSIS PATIENTS. Specimen Blood Narrative Performed At Consumer Insight Manager ID - KIRA Jacobsen [facility] CENTER Performing Organization Address City/State/Zipcode Phone Number [facility] [address] [place] [address] CENTER EKG-SCANNED (12/13/2019) Narrative Performed At This result has an attachment that is no t available. Ordered by an unspecified provider. REPORT OF PROCEDURE - ENDOSCOPY URL (12/08/2019 8:16 AM MANAGER OF CHANGE) Narrative Performed At This result has an attachment that is no t available. CBC with platelet count + automated diff (12/07/2019 5:47 AM MANAGER OF CHANGE)Only the most recent of11 resultswithin the time period is included. Pathologist Sig nature WBC 9.5 3.5 - 10.5 [facility] RBC 2.88 (L) 4.63 - 6.08 [facility] M/L [facility] Hemoglobin 9.0 (L) 13.7 - 17.5 [facility] GM/DL [facility] Hematocrit 27.5 (L) 40.1 - 51.0 % [facility] MCV 95.5 (H) 79.0 - 92.2 fL [facility] MCH 31.3 25.7 - 32.2 pg [facility] MCHC 32.7 32.3 - 36.5 [facility] GM/DL [facility] RDW 17.2 (H) 11.6 - 14.4 % [facility] Platelets 676 (H) 150 - 450 K/CU [facility] MPV 10.0 9.4 - 12.4 fL [facility] nRBC 0 0 - 0 /100 WBC [facility] % Neutros 62 % [facility] % Lymphs 15 % [facility] % Monos 13 % [facility] % Eos 8 % [facility] % Baso 1 % [facility] # Neutros 5.88 (H) 1.78 - 5.38 [facility] # Lymphs 1.41 1.32 - 3.57 [facility] # Monos 1.24 (H) 0.30 - 0.82 [facility] # Eos 0.79 (H) 0.04 - 0.54 [facility] K/L [facility] # Baso 0.09 (H) 0.01 - 0.08 [facility] K/L [facility] Immature 1 0 - 1 % [facility] Granulocytes-Relative [facility] Specimen Blood Performing Organization Address City/State/Zipcode Phone Number [facility] [address] [place] [address] CENTER H. pylori antigen, stool (12/05/2019 7:28 PM CDT) H. pylori Not detected Not detected [facility] Antigen Comment: INCORPORATED Antimicrobials, proton pump inhibitors, and bismuth p reparations inhibit H. pylori and ingestion up to two weeks prior to testing may cause false negative results. If clinically indica leti the test should be repeated on a new specimen obtained two weeks after discontinuing treatment. Specimen Stool - Feces (substance) Narrative Performed At Performing Lab [facility] *SPL [facility], [address] [place] [phone] Anjelica Gupta MD, PhD Performing Organization Address City/State/Zipcode Phone Number [employer] [employer] [place] [address] INCORPORATED [address] [facility] thoracentesis (12/05/2019 6:00 PM CDT) Specimen Narrative Performed At FINAL REPORT [employer] Exam: Ultrasound guided thoracentesis Clinical History: Right-sided Pleural Ef fusion Hand Hide Stretcher: Michelle Eric PA-C Supervising Physician: Austin Tee [...] Impression: Ultrasound guided right-si ded thoracentesis. Signed: Austin Tee MD Report Verified Date/Time: 12/06/2019 13:05:38 Reading Location: [facility] [id number] [facility] [place] Reading Room Electronically signed by: AUSTIN TEE MD o n 12/06/2019 01:05 PM Procedure Note Interface, External Ris In - 12/06/2019 1:08 PM CDT FINAL REPORT Exam: Ultrasound guided thoracentesis Clinical History: Right-sided Pleural Ef fusion Hand Hide Stretcher: Michelle Eric PA-C Supervising Physician: Austin Tee [...] Impression: Ultrasound guided right-jennifer ed thoracentesis. Signed: Asutin Tee MD Report Verified Date/Time: 12/06/2019 1 3:05:38 Reading Location: [facility] [id number] [facility] [place] Reading Room Performing Organization Address City/State/Zipcode Phone Number [employer] XR chest 1 view portable / bedside (12/05/2019 5:59 PM CDT)Only the most recent of3 resultswithin the time period is included. Specimen Narrative Performed At FINAL REPORT [employer] RAD, CHEST, 1 VIEW, NON DEPT TECHNIQUE: [...] Report Verified Date/Time: 12/05/2019 19:34:19 Reading Location: [address] Reading Room Procedure Note Interface, External [...] Verified Date/Time: 12/05/2019 1 9:34:19 Reading Location: [address] Reading Room Performing Organization Address City/[facility] Cent[facility] Phone Number RIS Protein, Total, Pleural Fluid (12/05/2019 5:55 PM CDT) PROTEIN, TOTAL, 1.1 [facility] PLEURAL FLUID Comment: INCORPORATED Reference range is not defin ed and interpretation must be performed in the consideration of the pathophysiology of the analyte and the clinical context. TEST PERFORMED AT [facility] Specimen Body Fluid - Structure of right pleural cavity (body structure) Narrative Performed At Reference range is not defined and interpretation must [facility] be performed in the consideration of the pathophysiology of the analyte and the clinical context. TEST PERFORMED AT [facility] L AB Performing Organization Address City/[facility]/Zipcode Phone Number [facility] [place] [address] INCORPORATED [address] [facility] Glucose Pleural Fluid (12/05/2019 5:55 PM CDT) Glucose, Pleural 114 mg/dL [facility] Fluid Comment: INCORPORATED Reference range approximates that found in serum. Specimen Body Fluid - Structure of right pleural cavity (body structure) Narrative Performed At Performing Lab [facility] [place] [facility] [address] [place] [address] Elma Herman MD, PhD, VENKATA Performing Organization Address City/State/Zipcode Phone Number [facility] [address] INCORPORATED [address] [facility] Body fluid culture + gram stain (12/05/2019 5:54 PM CDT) Result No growth [facility] Gram Stain Result <1+ White blood [facility] cells seen [facility] Gram Stain Result No organisms seen [facility] Specimen Body Fluid - Structure of right pleural cavity (body structure) Narrative Performed At [facility] Performing Organization Address City/State/Zipcode Phone Number [facility] [address] [place] [address] CENTER Body fluid cell count with differential (12/05/2019 5:54 PM CDT) Appearance Slightly Cloudy Clear [facility] (A) [facility] Color Straw Colorless, [facility] Straw [facility] RBCs 170 (H) <=1 /cu mm [facility] Adjusted WBC Count 455 (H) <=5 /cu mm [facility] Lining Cells 5 (H) <=1 /cu mm [facility] % Segs 4 % [facility] % Lymphs 63 % [facility] % Monos 31 % [facility] % Eos 2 % [facility] % Baso 0 % [facility] Container Body EDTA Tube [facility] Fluid [facility] Specimen Body Fluid - Structure of right pleural cavity (body structure) Performing Organization Address City/State/Zipcode Phone Number [facility] [address] [place] [address] CENTER Lactate Dehydrogenase (LD), Pleural Fluid (12/05/2019 5:36 PM CDT) Lactate 36 See Note: [facility] Dehydrogenase (LD), Comment: U/L [facility] Pleural Fluid Reference Range: TRANSUDATE: <113 EXUDATE: >113 SAMPLE SLIGHTLY LIPEMIC. Specimen Body Fluid - Structure of right pleural cavity (body structure) Narrative Performed At Performing Lab [facility] EZ [employer] [facility] [place] [address] [place] [address] Elma Herman MD, PhD, VENKATA Performing Organization Address City/[facility]/Zipcode Phone Number [facility] [place] [address] INCORPORATED [address] [facility] Amylase Pleural Fluid (12/05/2019 5:36 PM CDT) Specimen Body Fluid - Structure of right pleural cavity (body structure) Narrative Performed At This result has an attachment that is no t available. US abdominal with doppler (12/02/2019 8:20 PM CDT) Specimen Narrative Performed At FINAL REPORT [employer] History: Upper GI bleed, concern for por [...] Date/Time: 12/03/2019 0 1:27:24 Performing Organization Address City/State/Zipcode Phone Number JUANITO WILSON jed PAEZ (12/02/2019 7:55 PM CDT) Pathologist Sig nature ABO Grouping A [facility] Rh Factor POS [facility] Specimen Blood Performing Organization Address [facility] Centercode Phone Number [facility] [address] [place] [address] [phone] RHYTHM STRIP - SCAN (10/28/2019 12:11 PM CDT)Only the most recent of3 results within the time period is included. Narrative Performed At This result has an attachment that is no t available. Amylase Peritoneal Fluid (10/21/2019 10:19 AM CDT)Only the most recent of2 resultswithin the time period is included. Pathologist Sig nature AMYLASE, PERITONEAL 9 See Comment U/L [facility] TH FLUID [facility] Specimen Body Fluid - Peter - Mathur drain, becca ce (physical object) Narrative Performed At Amylase activity in peritoneal fluids of [facility] non-pancreatic origin is often less than or CENTER equal to the amylase activity in blood, whereas elevated amylase activity has been reported in fluid of pancreatic origin (five-folds or higher compared to contemporaneously collected blood specimen). This test has been modified from the edging machine catcher's instructions and its performance characteristics were determined by [facility]. The laboratory is regulated under CLIA as qualified to perform high-complexity testing. This test has not been cleared or approved by the U.S. Food and Drug Administration. The reference intervals and other method performance specifications are unavailable for amylase in peritoneal fluid. Comparison of this result with the blood amylase is recommended. Consumer Insight Manager ID - ROSIANG Performing Organization Address City/State/Zipcode Phone Number [facility] [address] [place] [address] CENTER TRANSFUSION SERVICE REPORT - SCAN (10/19/2019 6:01 PM CDT)Only the most recent of4 resultswithin the time period is included. Narrative Performed At This result has an attachment that is no t available. Prepare RBC (10/18/2019 11:55 PM CDT)Only the most recent of4 resultswithin the time period is included. Pathologist Sig nature CROSSMATCH COMPATIBLE SAFETRACE TX Unit ABO A Pos SAFETRACE TX UNIT NUMBER [id number] SAFETRACE TX Status RETURNED FROM ISSUE SAFETRACE TX Blood Bank Product RED BLOOD CELLS SAFETRACE TX PRODUCT CODE [id number] SAFETRACE TX CROSSMATCH COMPATIBLE SAFETRACE TX Unit ABO A Pos SAFETRACE TX UNIT NUMBER [id number] SAFETRACE TX Status TX_TIMEINCHART SAFETRACE TX Blood Bank Product RED BLOOD CELLS SAFETRACE TX PRODUCT CODE [id number] SAFETRACE TX Performing Organization Address [facility] Phone Number SAFETRACE [place] Prepare PLT (10/17/2019 9:19 PM CDT) Pathologist Sig nature Unit ABO O Pos SAFETRACE TX UNIT NUMBER [id number] SAFETRACE TX Status RETURNED FROM ISSUE SAFETRACE TX Blood Bank Product PLATELETS SAFETRACE TX PRODUCT CODE [id number] SAFETRACE TX Performing Organization Address [facility] Phone Number SAFETRACE [place] Prepare plasma (10/17/2019 9:19 PM CDT) Pathologist Sig nature Unit ABO A Pos SAFETRACE TX UNIT NUMBER [id number] SAFETRACE TX Status RETURNED FROM ISSUE SAFETRACE TX Blood Bank Product FFP SAFETRACE TX PRODUCT CODE [id number] SAFETRACE TX Unit ABO A Pos SAFETRACE TX UNIT NUMBER [id number] SAFETRACE TX Status RETURNED FROM ISSUE SAFETRACE TX Blood Bank Product FFP SAFETRACE TX PRODUCT CODE [id number] SAFETRACE [place] Performing Organization Address [facility] Centercode Phone Number SAFETRACE [place] Potassium-Stat Lab (10/17/2019 7:50 PM CDT)Only the most recent of4 results within the time period is included. Pathologist Sig nature Potassium 4.5 3.6 - 5.5 meq/L [facility] Specimen Blood, Arterial Performing Organization Address City/[facility] Centercowi Phone Number [address] [address] [place] Sodium Na-Stat Lab (10/17/2019 7:50 PM CDT)Only the most recent of4 results within the time period is included. Pathologist Sig nature Sodium 135 (L) 136 - 145 meq/L [facility] Specimen Blood, Arterial Performing Organization Address [facility] Centercowi Phone Number [address] [address] [place] Glucose-Stat Lab (10/17/2019 7:50 PM CDT)Only the most recent of4 resultswithin the time period is included. Pathologist Sig nature Glucose 182 (H) 70 - 110 mg/dL [facility] Specimen Blood, Arterial Performing Organization Address [facility] Phone Number [address] [address] [place] HGB/HCT (H&H)-Stat Lab (10/17/2019 7:50 PM CDT)Only the most recent of4 resultswithin the time period is included. Pathologist Sig nature Hemoglobin 13.9 13.0 - 16.8 g/dL [facility] Hematocrit 41.0 40.0 - 50.0 % [facility] Specimen Blood, Arterial Performing Organization Address City/[facility] Phone Number [address] [address] [place] Calcium, Ionized (10/17/2019 7:50 PM CDT)Only the most recent of2 resultswithin the time period is included. Pathologist Sig nature Calcium, Ion 1.65 (HH) 1.12 - 1.27 mmol/L [facility] pH, Blood 7.25 [facility] Specimen Blood Performing Organization Address City/State/Zipcode Phone Number [facility] [address] [place] [address] CENTER [place] fluoro non-specific up to 1 hour [...] patient radiation dose information. Performing Organization Address City/[facility]/Zipcode Phone Number GE RIS Tissue Exam (10/17/2019 4:26 PM CDT) Case Report Surgical Pathology Report Case: [id number] [facility] Authorizing Provider: Marc Mathews MD Collected: 10/17/2019 04:26 PM [facility] Ordering Location: [facility] PERIOPERATIVE Received: 10/20/2019 08:32 AM [facility] Pathologist: Carmina Grewal MD Specimens: A) - Gallbladd er B) - Sple en DIAGNOSIS A. GALLBLADDER, CHOLECYSTECTOMY: [facility] Electronically - CHRONIC CHOLECYSTITIS AND CHOLESTEROLOSIS [facility] signed by Carmina, - NO GALLSTONE PRESENT [facility] MD Carmina on 10/22/2019 at 4 :34 B. SPLEEN, SPLENECTOMY: PM - WEIGHT: 272 GM - SPLENOMEGALY - MILD VASCULAR CONGESTION, NO SIGNIFICANT PATHOLOG IC ABNORMALITY - NEGATIVE FOR MALIGNANCY OR LYMPHOMA CC/pl Signing Pathologist Direct Phone Line: CPT Code(s) 78961; [id number] [facility] CLINICAL HISTORY Preop diagnosis: [facility] Chronic pancreatitis, [facility] unspecified MEDICAL CENTER pancreatitis type and splenic vein thrombosis. SPECIMEN SOURCE Gallbladder and spleen [facility] GROSS DESCRIPTION A. Received fresh labeled wi th the patient's name, accession number and "gallbladder"is a 7.5 cm in length x 1.5 cm in diameter, previously opened gallbladder. There is no attached cystic duct and no ly [facility] node identified. The ser elma is webster-purple, smooth and hyperemic. Upon opening, there is no bile or calculus present. The mucosa is york-brown and velvety. The wall thickness is 0.2 cm. Critical Care Cns sections are submitted in cassette [id number]. [facility] B. Received fresh labeled wi th the [...] B2, parenchyma to hilar margin MICROSCOPIC Performed [facility] Specimen Tissue - Gallbladder structure (body str ucture) Tissue specimen (specimen) - Splenic str ucture (body structure) Performing Organization Address City/State/Zipcode Phone Number [place] [phone] [place] [address] abdomen/pelvis without & with IV contrast (10/16/2019 10:43 AM CDT) Specimen Narrative Performed At FINAL REPORT [employer] RUST TECHNIQUE: CT of the abdomen and pelvis [...] Report Verified Date/Time: 10/16/2019 13:25:44 Reading Location: [facility] C0Y CT Body R ding Room Procedure Note Interface, External Ris In [...] Verified Date/Time: 10/16/2019 1 3:25:44 Reading Location: [facility] B1 C013Y CT Body R eading Room Performing Organization Address City/State/Zipcode Phone Number GE RIS REPORT OF PROCEDURE - ENDOSCOPY URL (10/15/2019 6:42 PM CDT) Narrative Performed At This result has an attachment that is no t available. Urinalysis w/Microscopic (10/15/2019 8:13 AM CDT) Color, UA Yellow [facility] Clarity, UA Hazy [facility] Specific [place], 1.010 1.001 - 1.035 [facility] pH, UA 6.5 5.0 - 8.0 [facility] Protein, UA 20 mg/dL (A) Negative [facility] Glucose, UA Negative Negative [facility] Ketones, UA 100 mg/dL (A) Negative [facility] Bilirubin, UA Negative Negative [facility] Blood, UA Negative Negative [facility] Nitrite, UA Negative Negative [facility] Leukocytes, UA Negative Negative [facility] Urobilinogen, UA 0.2 0.2 - 1.0 mg/dL [facility] RBC, UA 0 /HPF [facility] WBC, UA 0 /HPF [facility] Bacteria, UA Occasional [facility] Mucus Occasional [facility] Squam Epithel, UA <1 /HPF [facility] Yeast Few [facility] Specimen Source [facility] Specimen Urine Narrative Performed At Consumer Insight Manager ID - [auto] [facility] Consumer Insight Manager ID - moe Performing Organization Address City/State/Zipcode Phone Number [facility] [address] [place] [address] CENTER IGG SUBCLASS-4 ONLY (10/15/2019 5:32 AM CDT) Pathologist Sig nature Igg 4 64.5 4 - 86 mg/dL [facility] D Specimen Blood Narrative Performed At Performing Lab [facility] [place] [address] [place] [address] Elma Herman MD, PhD, VENKATA Performing Organization Address [facility] Centercode Phone Number [facility] [address] INCORPORATED [address] [address] [facility] XR abdomen / KUB 1 view (10/14/2019 [...] Report Verified Date/Time: 10/14/2019 09:37:48 Reading Location: [facility] Reading Room [place] [address] Procedure Note Interface, External Ris In - [...] Verified Date/Time: 10/14/2019 0 9:37:48 Reading Location: [facility] [employer] Reading Room - [place] [address] Performing Organization Address City/State/Zipcode Phone Number GE [facility] Iron, TIBC, % sat. (without ferritin) (10/14/2019 4:34 AM CDT)Only the most recent of2 resultswithin the time period is included. Pathologist Sig nature Iron 32.0 (L) 40.0 - 160.0 [facility] ug/dL [facility] TIBC 214 (L) 250 - 450 ug/dL [facility] Iron % Saturation 15 (L) 20 - 55 % [facility] Specimen Blood Narrative Performed At Consumer Insight Manager ID - KIRA Jacobsen [facility] [place] Performing Organization Address [facility] Centerc[facility] Phone Number [address] [address] CENTER Triglycerides (10/14/2019 4:34 AM CDT) Pathologist Sig nature Triglycerides 66 mg/dL [facility] [place] Specimen Blood Narrative Performed At TRIGLYCERIDE [facility] Low Risk <150 Borderline Risk 150-199 High Risk 200-499 Very High Risk >=500 Consumer Insight Manager ID Binu Jacobsen Performing Organization Address [facility] Phone Number [address] [address] CENTER Ferritin (02/18/2019 1:36 PM MANAGER OF CHANGE) Pathologist Sig nature Ferritin 187 5 - 275 ng/mL [facility] Specimen Blood Narrative Performed At Consumer Insight Manager ID Binu MORRIS [facility] [place] Performing Organization Address [facility] Centercode Phone Number [facility] [address] [place] [address] CENTER Vitamin B12 and Folate (02/17/2019 4:18 AM MANAGER OF CHANGE) Pathologist Sig nature Vitamin B12 665 213 - 816 pg/mL [facility] Folate 12.3 >=7.0 ng/mL [facility] Specimen Blood Narrative Performed At Consumer Insight Manager HELIO Hernandez [facility] Performing Organization Address City/[facility]/Zipcode Phone Number [facility] [address] [place], [place] [id number] CENTER TSH/Free T4 If Indicated (02/17/2019 4:18 AM MANAGER OF CHANGE) Pathologist Sig nature TSH 2.31 0.35 - 4.94 uIU/mL [facility] Specimen Blood Narrative Performed At Consumer Insight Manager ID - SOTERO Hernandez [facility] Performing Organization Address [facility] Centercode Phone Number [facility] [address] [place] [address] CENTER REPORT OF PROCEDURE - ENDOSCOPY URL (02/15/2019 12:51 PM MANAGER OF CHANGE) Narrative Performed At This result has an attachment that is no t available. [place] ERCP (02/15/2019 12:32 PM MANAGER OF CHANGE) Specimen Narrative Performed At FINAL REPORT GE [facility] A fluoroscopic unit was utilized for a p rocedure performed in the operating room. No interpretation was re quested. Please refer to the operative report regarding findings. Ple ase refer to PACS for patient radiation dose information. Signed: Josef Bowman MD Report Verified Date/Time: 02/16/2019 09:17:37 Reading Location: [facility] C013Y CT Body R [facility] Room Procedure Note Interface, External Ris In - 02/16/2019 9:19 AM MANAGER OF CHANGE FINAL REPORT A fluoroscopic unit was utilized for a p rocedure performed in the operating room. No interpretation was re quested. Please refer to the operative report regarding findings. Ple ase refer to PACS for patient radiation dose information. Signed: Josef Bowman MD Report Verified Date/Time: 02/16/2019 0 9:17:37 Reading Location: [facility] C013Y CT Body R eading Room Performing Organization Address City/[facility] Centercode Phone Number GE [facility] CYTOLOGY REQUEST (02/15/2019 12:26 PM MANAGER OF CHANGE) Pathologist Sig nature Cytology See Separate Report [facility] Specimen Brushings - Common bile duct structure ( body structure) Performing Organization Address City/State/Zipcode Phone Number [facility] [address] [place], [place] [phone] CENTER Cytology (02/15/2019 12:26 PM MANAGER OF CHANGE) Pathologist Sig nature Case Report Medical Cytology Report Case: [id number] [facility] Authorizing Provider: Uriah Casper i Collected: 02/15/2019 1226 [facility] Ordering Location: [address] Received: 02/15/2019 1529 [facility] Service Pathologist: Nereyda Causey MD Specimen: Common Bile D uct, Distal bile duct brushing in CRR DIAGNOSIS COMMON BILE DUCT BRUSHING (CYTOSPINS AND CELL BLOCK): [facility] Electronically signed - MILDLY ATYPICAL CELLS PRESENT, FAVOR REACTIVE (SE E COMMENT) [facility] by Nereyda Causey MD Signing Pathologist Direct Phone Line: [phone] [place] [address] on 02/18/2019 at 5:29 PM COMMENT Few mildly atypical [facility] cells are present [facility] and with the [facility] history of stent, a reactive process is favored. Clinical correlation is recommended. CPT Code(s) 40583, 85157 [facility] CLINICAL DATA Jaundice, a [facility] localized biliary [facility] stricture with [facility]ENTER upstream dilation SPECIMEN SOURCE COMMON BILE DUCT [facility] BRUSH[facility] GROSS DESCRIPTION 15 mls in cytorich red; 2 cy tospins, cell block (collodion bag) [facility] Collected: [id number] [facility] Received: [id number] [facility] MICROSCOPIC Performed. [facility] DESCRIPTION [facility] STATEMENT OF Satisfactory [facility] Gross assessment [facility]. Mariahke's [facility] was performed at [facility] Department of [facility] Pathology, [address] [facility], [place] [address], [facility] was performed at [facility] Department of [facility] Pathology, [address] [place] [id number], [facility] component was [facility] performed at Department of [facility] Pathology, [address] [place] [id number], Specimen Brushings - Common bile duct structure ( body structure) Narrative Performed At This result has an attachment that is no t available. Performing Organization Address City/State/Zipcode Phone Number [address] [phone] CENTER Manual Differential (02/14/2019 6:24 AM MANAGER OF CHANGE) % Neutros 87 % [facility] % Lymphs 3 % [facility] % Monos 6 % [facility] % Eos 3 % [facility] % Atypical Lymphs 1 (H) 0 - 0 % [facility] # Neutros 7.74 (H) 1.78 - 5.38 [facility] # Lymphs 0.27 (L) 1.32 - 3.57 [facility] # Monos 0.53 0.30 - 0.82 [facility] # Eos 0.27 0.04 - 0.54 [facility] # Atypical Lymphs 0.09 (H) 0.00 - 0.00 [facility] Total Counted 100 [facility] Platelet Morphology Normal [facility] Smudge Cells Present [facility] Polychromasia 2+ moderate [facility] Hypochromia 1+ few [facility] Anisocytosis 2+ moderate [facility] Microcytes 2+ moderate [facility] Poikilocytes 1+ few [facility] Schistocytes 1+ few [facility] Platelet Conc Adequate [facility] Specimen Blood Narrative Performed At Consumer Insight Manager ID - Lorenzo Amaro [facility] User comments: Slide comments: Performing Organization Address City/State/Zipcode Phone Number [facility] [address] [place] [address] CENTER after 01/02/2019 Insurance Payer Benefit Plan / Subscriber ID Effective Phone Address T ype Group Dates MEDICAID - MEDICAID [id number] 2011-Prese Medi caid MEDICAID [id number] nt Non-Co ntracte CARE d Advance Directives For more information, please contact: [phone] Code Status Date Activated Date Inactivated Comments Full Code 12/13/2019 3:36 PM 12/18/2019 10:12 PM This code status was determined by: Patient Full Code 12/01/2019 10:25 PM 12/07/2019 5:50 [...]
--- OUTSIDE RECORDS SUMMARY | 2020-01-03 21:33 | XMS REPORT | Continuity of Care Document ---
:1990 Author Organization [facility] Care Team Providers Name Role Phone [facility] Unavailable Un available Problems Problem Status Onset Classification Date Comments Sour e Date Reported CLINIC VISIT Active 09/30/[address] [place] [address] [facility] GASTRIC VARICES [place] 09/01/19 [place] SEVERE PANCREATIC 20 Me [facility] Center UPPER GI BLEED Active 08/27/[address] ACUTE UPPER GI Active 08/27/19 B[place], ACUTE BLOOD [place] A Illness, 09/01/2019 [place] ILLNESS, Active UNSPECIFIED [facility] t GASTROINTESTINAL Active HEMORRHAGE, [facility] t UNSPECIFIED ACUTE Active POSTHEMORRHAGIC [place] ANEMIA HYPOTENSION, Active U[place]PECIFIED [place] Medications Medication Details Route Status Patient Ordering Order Source Instructions Provider Date Saline Flush Notes: (Same Active 0.9% as: 2019 [facility] Posiflush) Lidocaine Notes: Active Hydrochloride 10 Preservative 2019 [place] MG/ML Injectable free. (Same Solution as: Xylocaine MPF) Saline Flush Notes: (Same Active 0.9% as: 2019 [facility] Posiflush) pantoprazole Notes: For IV Active additive 80 mg + push 2019 [facility] Sodium Chloride reconstitute 0.9% IV 100 mL with 10 ml 0.9% sodium chloride and push over 2 minutes. (Same as: Protonix) Potassium Notes: Infuse Inactive Chloride at a rate of 2019 10 mEq/hr. (Same as: KCL) ondansetron 2 4 mg = 2 mL, No Longer mg/mL injectable IVP, Q6H, 0 Active 2019 [facility] solution Refill(s) D5NS 1,000 mL 1,000 mL, Active Rate: 100 2019 ml/hr, Infuse over: 10 hr, Route: IV, Dosing Weight 68.409 kg, Total Volume: 1,000, Start date: 08/30/19 8:29:00 CDT, Duration: 30 day, Stop date: 09/29/19 8:28:00 CDT, 1.84, m2, 0 Sodium Chloride 250 mL, Route: Active H 0.9% IV IVPB, Start 2019 [facility] date: 08/29/19 16:33:00 CDT, Duration: 30 day, Stop date: 09/28/19 16:32:00 CDT, PRN Line Flush, 0 Dextrose 50% 12.5 gm, 25 Active Syringe (D50W) mL, Route: 2019 [facility] est IVP, Drug Form: INJ, Dosing Weight 68.409, kg, PRN, PRN Blood Glucose Results, Start date: 08/29/19 16:11:00 CDT, Duration: 30 day, Stop date: 09/28/19 16:10:00 CDT, 0 Glucagon 1 mg, Route: Active IM, Drug form: 2019 [facility] PDR/INJ, PRN, Dosing Weight 68.409, kg, PRN Blood Glucose Results, Start date: 08/29/19 16:11:00 CDT, Duration: 30 day, Stop date: 09/28/19 16:10:00 CDT, 0 Omnipaque 350 Notes: (same Inactive injectable as:Omnipaque 2019 [facility] t solution 350). WASTE: F/P - Black; E - Municipal Trash [facility] Potassium Notes: Infuse Inactive Chloride at a rate of 2019 [facility] 10 mEq/hr. (Same as: KCL) Lactulose 667 Notes: (Same Inactive MG/ML Oral as:Chronulac) 2019 [facility] Solution Lactulose 667 Notes: (Same Inactive MG/ML Oral as:Chronulac) 2019 [facility] Solution ondansetron Notes: (Same Active as: Zofran) 2019 [facility] MEDICATION WASTE Product Size: 4 mg Product Wasted: ___ mg Golytely Notes: Inactive (polyethylene 2019 [facility] glycol electrolyte solution 4 Liter bottle) (Same as: Golytely, Colyte) Ondansetron Notes: (Same Inactive as: Zofran) 2019 [facility] MEDICATION WASTE Product Size: 4 mg Product Wasted: ___ mg Acetaminophen 2 tab, PO, Inactive 325 MG / Q4H, PRN for 2019 [facility] Hydrocodone pain, # 84 Bitartrate 5 MG [...] Ondansetron Notes: (Same Active as: Zofran) 2019 [facility] MEDICATION WASTE Product Size: 4 mg Product Wasted: ___ mg pantoprazole Notes: For IV No Longer additive 80 mg + push Active 2019 [facility] Sodium Chloride reconstitute 0.9% IV 100 mL with 10 ml 0.9% sodium chloride and push over 2 minutes. (Same as: Protonix) Trazodone Notes: (Same Active As: Desyrel) 2019 [facility] Maalox Advanced Notes: Active Regular Strength (aluminum 2019 [facility] SUSP hydroxide-magn esium hyd-simethicon e [phone]/5 ml 30 ml ud DAKOTAH) Albuterol 0.833 Notes: (Same Active MG/ML / as: Duoneb) 2019 [facility] Ipratropium Rye 0.167 MG/ML Inhalant Solution [DuoNeb] Docusate Sodium Notes: (Same Active 100 MG Oral as: Colace) 2019 [facility] t Capsule [Colace] (Do Not Crush) Robitussin 100 Notes: (Same Active mg/5 mL oral as: 2019 [facility] liquid Robitussin) Zofran Notes: (Same Active as: Zofran) 2019 [facility] MEDICATION WASTE Product Size: 4 mg Product Wasted: ___ mg Hydralazine Notes: (Same Active as: 2019 [facility] Apresoline) Push over 5 minutes Sodium Chloride 1,000 mL, No Longer 0.9% IV 1,000 mL Rate: 100 [facility] 2019 [facility] ml/hr, Infuse over: 10 hr, Route: IV, Dosing Weight 68.409 kg, Total Volume: 1,000, Start date: 08/28/19 2:15:00 CDT, Duration: 30 day, Stop date: 09/27/19 2:14:00 CDT, 1.84, m2, 0 Saline Flush Notes: Same Active 0.9% as: BD 2019 [facility] Posiflush Sterile pantoprazole Notes: For IV Inactive push 2019 [facility] reconstitute with 10 ml 0.9% sodium chloride and push over 2 minutes. (Same as: Protonix) Morphine Notes: (Same Active as:MORPhine 2019 [facility] Sulfate) Labetalol Notes: (Same Active as: Normodyne, 2019 [facility] Trandate) Push over 2 minutes Give bolus over 2-3 minutes. NS (Bolus) IV 1,000 mL, Inactive 1,000 ml/hr, 2019 [facility] Infuse Over: 1 hr, Route: IV, 1,000, Drug form: INJ, ONCE, Priority: STAT, Dosing Weight 68.409 kg, Start date: 08/28/19 2:07:00 CDT, Stop date: 08/28/19 2:07:00 CDT, 0 Sodium Chloride 1,000 mL, Inactive 0.9% (Bolus) IV 1,000 ml/hr, 2019 [facility] Infuse Over: 1 hr, Route: IV, 1,000, Drug form: INJ, ONCE, Priority: STAT, Dosing Weight 68.409 kg, Start date: 08/28/19 2:01:00 CDT, Stop date: 08/28/19 2:01:00 CDT, 0 ursodiol 500 mg 500 mg = 1 No Longer oral tablet tab, PO, ONCE, [address] 0 Refill(s) Esomeprazole 40 mg, PO, No Longer Daily, 0 2019 [facility] Refill(s) ferrous sulfate 325 mg = 1 No Longer 325 MG Oral tab, PO, BID, 2019 [facility] est Tablet 0 Refill(s) Allergies, Adverse Reactions, Alerts Substance Category Reaction Severity Reaction Status Date Comments S ource type Reported vancomycin Assertion Drug Active MH allergy [facility] piperacillin Assertion Drug Active M H -tazobactam allergy [place] meropenem Assertion Drug Active MH allergy [facility] Immunizations No Data Provided for This Section Results Order Name Results Value Reference Date Interpretation Comments Lenka rce Range CHEM PANEL Amylase Lvl 17 25 - 115 08/30 [facility] CHEM PANEL Glucose Lvl 104 70 - 99 08/30 [facility] CHEM PANEL BUN 1 7 - 08/30 [facility] CHEM PANEL Creatinine 0.50 0.50 - 08/30 Lvl 1.40 [facility] CHEM PANEL Sodium Lvl 145 135 - 145 08/30 [facility] CHEM PANEL Potassium 3.1 3.5 - 5.1 08/30 Lvl [facility] CHEM PANEL Chloride Lvl 109 95 - 109 08/30 [facility] CHEM PANEL CO2 25 24 - 32 08/30 [facility] CHEM PANEL AGAP 14.1 10.0 - 08/30 MH 20.0 [facility] CHEM PANEL Calcium Lvl 7.4 8.5 - 10.5 08/30 [facility] CHEM PANEL eGFR 145 08/30 Result Comment: The [facility] eGFR is calculated using the CKD-EPI formula. [...] Lvl 104 73 - 393 / /2019 [facility] HEMATOLOGY WBC 5.9 3.7 - 10.4 08/30 /2019 [facility] HEMATOLOGY RBC 3.00 4.70 - 08/30 MH 6.10 /2019 [facility] HEMATOLOGY Hgb 9.1 14.0 - 08/30 MH 18.0 /2019 [facility] HEMATOLOGY Hct 26.4 42.0 - 08/30 MH 54.0 /2019 [facility] HEMATOLOGY MCV 88.1 80.0 - 08/30 MH 94.0 /2019 [facility] HEMATOLOGY MCH 30.2 27.0 - 08/30 MH 31.0 /2019 [facility] HEMATOLOGY MCHC 34.3 32.0 - 08/30 MH 36.0 /2019 [facility] HEMATOLOGY RDW 14.6 11.5 - 08/30 MH 14.5 /2019 [facility] HEMATOLOGY Platelet 341 133 - 450 08/30 /2019 [facility] HEMATOLOGY MPV 8.8 7.4 - 10.4 08/30 MH /2019 [facility] HEMATOLOGY Segs 71.9 45.0 - 08/30 MH 75.0 /2019 [facility] HEMATOLOGY Lymphocytes 13.3 20.0 - 08/30 MH 40.0 /2019 [facility] HEMATOLOGY Monocytes 11.1 2.0 - 12.0 08/30 /2019 [facility] HEMATOLOGY Eosinophils 3.1 0.0 - 4.0 08/30 /2019 [facility] HEMATOLOGY Basophils 0.6 0.0 - 1.0 08/30 /2019 [facility] HEMATOLOGY Neutrophils 4.3 1.5 - 8.1 08/30 MH # /2019 [facility] HEMATOLOGY Lymphocytes 0.8 1.0 - 5.5 08/30 MH # /2019 [facility] HEMATOLOGY Monocytes # 0.7 0.0 - 0.8 08/30 /2019 [facility] HEMATOLOGY Eosinophils 0.2 0.0 - 0.5 / MH # /2019 [facility] HEMATOLOGY Basophils # 0.0 0.0 - 0.2 / /2019 [facility] CHEM PANEL Glucose Lvl 57 70 - 99 08/29 /2019 [facility] CHEM PANEL BUN 2 7 - 22 08/29 /2019 [facility] CHEM PANEL Creatinine 0.40 0.50 - 07 MH Lvl 1.40 /2019 [facility] CHEM PANEL Sodium Lvl 143 135 - 145 07 /2019 [facility] CHEM PANEL Potassium 3.5 3.5 - 5.1 07/ MH Lvl /2019 [facility] CHEM PANEL Chloride Lvl 109 95 - 109 07/ MH /2020 [facility] CHEM PANEL CO2 22 24 - 32 08/29 [facility] CHEM PANEL Calcium Lvl 7.7 8.5 - 10.5 08/29 [facility] CHEM PANEL AGAP 15.5 10.0 - 08/29 MH 20.0 [facility] CHEM PANEL eGFR 159 08/29 Result Comment: The [facility] eGFR is calculated using the CKD-EPI formula. [...] 0.00 - 08/29 MH n Lvl 0.10 [facility] HEMATOLOGY WBC 6.2 3.7 - 10.4 08/29 [facility] HEMATOLOGY RBC 2.92 4.70 - 08/29 MH 6.10 [facility] HEMATOLOGY Hgb 8.5 14.0 - 08/29 MH 18.0 [facility] HEMATOLOGY Hct 26.2 42.0 - 08/29 MH 54.0 [facility] HEMATOLOGY MCV 89.6 80.0 - 08/29 MH 94.0 [facility] HEMATOLOGY MCH 29.0 27.0 - 08/29 MH 31.0 [facility] HEMATOLOGY MCHC 32.4 32.0 - 08/29 MH 36.0 [facility] HEMATOLOGY RDW 15.0 11.5 - 08/29 MH 14.5 [facility] HEMATOLOGY Platelet 323 133 - 450 08/29 [facility] MPV 8.6 7.4 - 10.4 08/29 [facility] HEMATOLOGY Segs 77.2 45.0 - 08/29 MH 75.0 /2019 [facility] HEMATOLOGY Lymphocytes 11.4 20.0 - 07 MH 40.0 /2019 [facility] HEMATOLOGY Monocytes 9.1 2.0 - 12.0 07 MH [facility] HEMATOLOGY Eosinophils 1.8 0.0 - 4.0 07 MH [facility] HEMATOLOGY Basophils 0.5 0.0 - 1.0 07/ [facility] HEMATOLOGY Neutrophils 4.7 1.5 - 8.1 08/29 MH # /2019 [facility] HEMATOLOGY Lymphocytes 0.7 1.0 - 5.5 08/29 MH # [facility] HEMATOLOGY Monocytes # 0.6 0.0 - 0.8 08/29 [facility] HEMATOLOGY Eosinophils 0.1 0.0 - 0.5 08/29 MH # [facility] IMMUNOLOGY Coronavirus Not Detected Not 08/28 MH (COVID-19) (08/29/19 6:29 AM) Detected /2019 [facility] CHEM PANEL Glucose Lvl 71 70 - 99 08/28 [facility] CHEM PANEL BUN 3 7 - 22 08/28 [facility] CHEM PANEL Creatinine 0.50 0.50 - 07 MH Lvl 1.40 /2019 [facility] CHEM PANEL Sodium Lvl 143 135 - 145 08/28 [facility] CHEM PANEL Potassium 3.3 3.5 - 5.1 08/28 MH Lvl /2019 [facility] CHEM PANEL Chloride Lvl 110 95 - 109 08/28 [facility] CHEM PANEL CO2 26 24 - 32 08/28 [facility] CHEM PANEL Calcium Lvl 8.2 8.5 - 10.5 08/28 [facility] CHEM PANEL AGAP 10.3 10.0 - 08/28 MH 20.0 [facility] CHEM PANEL eGFR 145 08/28 Result Comment: The [facility] eGFR is calculated using the CKD-EPI formula. [...] 5.2 3.7 - 10.4 08/28 MH /2019 [facility] HEMATOLOGY RBC 2.91 4.70 - 08/28 MH 6.10 [facility] HEMATOLOGY Hgb 8.8 14.0 - 08/28 MH 18.0 /2019 [facility] HEMATOLOGY Hct 25.8 42.0 - 08/28 MH 54.0 /2019 [facility] HEMATOLOGY MCV 88.8 80.0 - 08/28 MH 94.0 [facility] MCH 30.3 27.0 - 08/28 MH 31.0 [facility] MCHC 34.1 32.0 - 08/28 MH 36.0 [facility] RDW 14.4 11.5 - 08/28 MH 14.5 [facility] Platelet 316 133 - 450 08/28 /2019 [facility] MPV 8.6 7.4 - 10.4 08/28 MH /2019 [facility] RBC Morph Normal Normal 08/28 MH (08/29/19 4:30 AM) /2019 [facility] est HEMATOLOGY Plt Morph Normal Normal 08/28 MH (08/29/19 4:30 AM) /2019 [facility] est HEMATOLOGY Segs 70.7 45.0 - 08/28 MH 75.0 [facility] Lymphocytes 17.3 20.0 - 08/28 MH 40.0 [facility] Monocytes 10.4 2.0 - 12.0 08/28 /2019 [facility] HEMATOLOGY Eosinophils 1.0 0.0 - 4.0 08/28 MH /2019 [facility] HEMATOLOGY Basophils 0.6 0.0 - 1.0 08/28 MH /2019 [facility] HEMATOLOGY Neutrophils 3.6 1.5 - 8.1 08/28 MH # /2019 [facility] HEMATOLOGY Lymphocytes 0.9 1.0 - 5.5 08/28 MH # [facility] Monocytes # 0.5 0.0 - 0.8 08/28 /2019 [facility] Eosinophils 0.1 0.0 - 0.5 08/28 MH # /2019 [facility] BLOOD BANK RBC product Product available 4 08/27 Resul t RESULTS (08/28/19 5:41 AM) /2019 Comment: [facility] 08/28/2019 06:02 [id number]
Blood available, notified Anne WHITNEY at 08/28/2019 06:02 by NS. BLOOD BANK Antibody Negative 08/27 RESULTS Scrn (08/28/19 3:37 AM) [facility] BLOOD BANK ABO/Rh A POS 08/27 RESULTS /2019 [facility] CHEM PANEL Total 5.1 6.4 - 8.4 08/27 Protein /2019 [facility] CHEM PANEL Albumin Lvl 1.2 3.5 - 5.0 08/27 [facility] CHEM PANEL ALT 7 0 - 65 08/27 [facility] CHEM PANEL AST 14 0 - 37 08/27 [facility] CHEM PANEL Alk Phos 88 39 - 136 08/27 [facility] CHEM PANEL Bili Total 0.3 0.2 - 1.3 08/27 [facility] CHEM PANEL B/C Ratio 12 6 - 25 08/27 [facility] CHEM PANEL Globulin 3.9 2.7 - 4.2 08/27 [facility] CHEM PANEL A/G Ratio 0.3 0.7 - 1.6 08/27 [facility] HEMATOLOGY PT 17.3 12.0 - 08/27 MH 14.7 [facility] HEMATOLOGY INR 1.40 0.85 - 08/27 1.17 [facility] HEMATOLOGY PTT 45.5 22.9 - 08/27 35.8 [facility] HEMATOLOGY RBC Morph Normal Normal 08/27 (08/28/19 3:37 AM) [facility] HEMATOLOGY Plt Morph Normal Normal 08/27 (08/28/19 3:37 AM) [facility] HEMATOLOGY Basophils # 0.0 0.0 - 0.2 08/27 [facility] Pathology Reports No Data Provided for This Section Diagnostic Reports Report Value Date Source Chest 2 views DX EXAM: XR CHEST 2 VIEWS 09/10/[address] [facility] DATE: 09/10/2019 9:36 CDT Center INDICATION: - eval pleural effusions COMPARISON: Chest radiograph 09/05/2019 TECHNIQUE: PA and lateral chest radiographs. FINDINGS: Lines, tubes and hardware: T he right arm PICC tip is heading towards the neck and projects outside the [id number]. Lungs and pleura: Pulmonary vascularity is normal. [...] towards the neck and projecting outside the [id number]. Recommend repositioning. 2. There is interval improv ement of small left pleural effusion status post thoracentesis. 3. Left retrocardiac subsegmental atelectasis. Finding #1 was discussed wit radha Sanchez via telephone on 09/10/2019 at 1531 hours. Thoracentesis wo PROCEDURE: Ultrasound-guided thoracentesis 04/[address] [facility] catheter Procedural Personnel Center Attending physician(s): Jack [...] written. Vascular/Interventional PROCEDURE: Ultrasound-guided thoracentes is 09/08/[address] [facility] Radiology Consult Procedural Personnel Center Attending physician(s): [...] ABDOMEN WITHOUT AND WITH CONTRA ST 09/05/[address] [facility] IV contrast CT DATE: 09/05/2019 7:54 CDT [...] Enteric contrast: None. DLP (mGy-cm): 1438.90. FINDINGS: Perinatal Tech: Noncontributory. Lines, tubes and hardware: None. Lower [...] Placement EXAM: XR CHEST 1 VIEW 09/05/2019 [facility] DX DATE: 09/05/2019 13:44 CDT [...] [facility] DATE: 09/04/2019 1:45 PM CDT [facility] er INDICATION: Dyspnea - Right Thoracentesis [...] CT EXAM: CT CHEST WITHOUT CONTRAST 09/02/2019 [facility] DATE: 09/02/2019 12:06 CDT Center [...] IV contrast: None. DLP (mGy-cm): 162.7. FINDINGS: Perinatal Tech: Noncontributory. Lines, tubes and hardware: None. Lower [...] DX EXAM: XR ABDOMEN 1 VIEW 09/02/[address] [facility] DATE: 09/02/2019 8:59 CDT Center INDICATION: - History of Pancreatitis and GI bl eed ADDITIONAL INFORMATION: None. COMPARISON: CT abdomen pelvis 08/29/2019 TECHNIQUE: Single frontal image of the abdomen. FINDINGS: Lines and tubes: Right upper quadrant biliary st ent. Endo Clip projects over the left medial upper qu adrant. Overlying EKG leads. Lower thorax: Small left ple ural effusion with associated atelectasis/consolidation. Bowel: Vrmm-ek-nemgjkte gaseous distention of th e stomach. Gaseous [...] DX EXAM: XR CHEST 1 VIEW 09/02/2019 [facility] DATE: 09/02/2019 8:59 AM CDT [facility] er INDICATION: - History of cough [...] (mGy): D LP = 169 (mGy-cm) 08/29/2019 [facility] PROCEDURE INFORMATION: Exam: CT Abdomen With [...] Carlota Mcgrath MD On 08/29/2019 16:04: 53; [id number] Consultation Notes No Data Provided for This Section Discharge Summaries No Data Provided for This Section History and Physicals No Data Provided for This Section Vital Signs Vital Sign Value Date Comments Source Heart Rate 86 09/01/2019 [facility] Respitory Rate 18 09/01/2019 [facility] Systolic (mm Hg) 106 09/01/2019 [facility] t Diastolic (mm Hg) 69 09/01/2019 [facility] st Respitory Rate 18 09/01/2019 [facility] Temperature Oral (F) 99.1 F 09/01/2019 [place] Heart Rate 101 09/01/2019 [facility] Respitory Rate 18 09/01/2019 [facility] Systolic (mm Hg) 98 09/01/2019 [facility] t Diastolic (mm Hg) 68 09/01/2019 [facility] st Temperature Oral (F) 98.3 F 08/31/2019 [place] Heart Rate 76 08/31/2019 [facility] Systolic (mm Hg) 107 08/31/2019 [facility] t Diastolic (mm Hg) 72 08/31/2019 [facility] st Temperature Oral (F) 98.4 F 08/31/2019 [place] Height 177.8 cm 08/28/2019 [facility] Weight 68.409 08/28/2019 [facility] BMI Calculated 21.64 08/28/2019 [facility] Encounters Location Location Encounter Encounter Reason Attending ADM [place] Stat Source Details Type Number For Provider Date Date Visit [facility] Inpatient [id number] [facility] [place] 08/27 08/27 Nigel Siu /2019 [facility] Procedures No Data Provided for This Section Assessment and Plan Assessment and Plan Date Source Extracted from:Title: Progress Note 09/01/2019 [facility] [place] Author: Cindy Elmore MD Date: 08/31/19 1.Acute blood loss anemia(D62) 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 Colonoscopy was unremarkable CT reviewed multiple biliary and pancreatic issues [facility] [...] bleed. Patient is being [facility] at [facility], getting his 4th unit of PRBC, no hematemesis reported by mother or EMS Vitally stable Plan: Patient is on PPI gtt Zofran 4 mg q6 h to avoid nausea Check H&H post transfusion Plan for upper endoscopy and colonoscopy in AM Biliary stent needs [facility] labs look unremarkable, [...] History Date Source Social History TypeResponse 08/28/2019 [facility] Alcohol Never Substance Abuse Use: None. [...]
--- OUTSIDE RECORDS SUMMARY | 2020-01-03 21:49 | XMS REPORT | Continuity of Care Document ---
:1990 Author Organization [facility] t Address [address] [place] [address] Care Team Providers Name Role Phone CedMontrell Primary Care Physician Justina Rubio MD Attending Clinician Cortez Freire MD Attending Clinician Mitchell Edgar MD Attending Clinician Wing De La Rosa MD Attending Clinician [phone] Evert WADE, Elenita Attending Clinician Bishop Abarca MD Attending Clinician Cierra Reed CRNA Attending Clinician [phone] Ankit Champagne MD Attending Clinician JUSTINA RUBIO Attending Clinician Unavailable PEE MCKEON Attending Clinician Unavailable Pee Mckeon MD Attending Clinician [phone] Mellissa Brooks MD Attending Clinician Elisa Hannah MD Attending Clinician Kai Santiago MD Attending Clinician Tato Crowder MD Attending Clinician Get Avendaño MD Attending Clinician Polo WADE, Celia Attending Clinician Pennie WADE Attending Clinician Khadijah Maciel MD Attending Clinician Sean Arcos MD Attending Clinician Bryan WADE, Aristeo Attending Clinician Oscar WADE, Dory Attending Clinician Arthur Morocho MD Attending Clinician Shubham WADE, Mervat Attending Clinician Tony Clark MD Attending Clinician Marvel WADE, Kevon Attending Clinician Jeremi THOMAS Attending Clinician PENNIE Attending Clinician Unavailable Kp Zarate Attending Clinician MARÍA Attending Clinician Unavailable María WADE Attending Clinician Anaid Pinon MD Attending Clinician Fortunato WADE Attending Clinician Argelia Childs Attending Clinician CARMELA Attending Clinician Unavailable RAFAELA GILL Attending Clinician Unavailable SATHISH Attending Clinician Unavailable MITCHELL EDGAR Attending Clinician Unavailable JUSTINA RUBIO Admitting Clinician Unavailable PEE MCKEON Admitting Clinician Unavailable KHADIJAH MACIEL Admitting Clinician Unavailable Kp Zarate Admitting Clinician FORTUNATO Admitting Clinician Unavailable CARMELA Admitting Clinician Unavailable RAFAELA GILL Admitting Clinician Unavailable SATHISH Admitting Clinician Unavailable MITCHELL EDGAR Admitting Clinician Unavailable Payers Payer Name Policy Type Policy Effective Date Expiration Date Sour ce Number MEDICAID - [id number] [address] [facility] MEDICAID MGD 00:00:00 - [facility] [place] [facility] [id number] -PresentM edicaid Non-Contracted Problems Condition Condition Condition Status Onset Resolution Last Treating Co mments Source Name Details Category Date Date Treatment Clinician Date Upper GI Upper GI Disease Active 2019-02 [facility] Medical 00 [place] Acute Acute Disease Active 2020-[address] [facility] postoperat postoperat 9-12 Mariah kes - yuridia pain yuridia pain 00:00: Medica l 00 [place] Acute Acute Disease Active 2019- [facility] respirator respirator - Mariah kes - y y 00:00: Medical insufficie insufficie 00 Ce nter ncy, ncy, postoperat postoperat yuridia yuridia Hemorrhagi Hemorrhagi Disease Active 2019- [facility] shock c shock 10-17 [facility] - 00:[facility]: Medical 00 [place] Metabolic Metabolic Disease Active 2019- [facility] acidosis acidosis 10-17 [facility] - 00:[facility]: Medical 00 [place] Oliguria Oliguria Disease Active 2019- [facility] - [facility]: Medical 00 [place] Acute Acute Disease Active 2019- [facility] blood loss blood loss 10-17 Mariah kes - anemia anemia 00:00: Medical 00 [place] Hyperglyce Hyperglyce Disease Active 2019-[address] mary ann mary ann 10-17 [facility] - 00:00: Medical 00 [place] S/P S/P Disease Active 2019-[address] [facility] splenectom splenectom 10-17 Mariah kes - y during y during 00:00: Medica l current current 00 [place] [facility] hospital ation ation Gastric Gastric Disease Active 2019- [facility] varices varices 10-12 [facility] - 00:[facility]: Medical 00 Center CLINIC Diagnosis Active 2019-10-14 Mem oria VISIT 09-29 12:21:00 l CLINIC 00:00: [place] VISIT 00 Active 09/30/2019 [facility] GASTRIC Diagnosis Active 2019-10-02 Me moria VARICES 08-31 15:46:00 l SEVERE GASTRIC 00:00: Nigel PANCREATIC VARICES 00 NECR SEVERE PANCREATIC NECR Active 09/01/2019 [facility] UPPER GI Diagnosis Active 2019-08-28 M emoria BLEED 08-26 00:59:00 l UPPER GI 00:00: Deshawn n BLEED 00 Active 08/27/2019 [place] ACUTE Diagnosis Active 2019-09-09 Mem oria UPPER GI 08-26 21:51:00 l BLEED, ACUTE 00:00: Nigel ACUTE UPPER GI 00 BLOOD LOSS BLEED, A ACUTE BLOOD LOSS A Active 08/27/2019 [facility] Obstructiv Obstructiv Disease Active [facility] e jaundice e jaundice - Mariah kes - 00:00: Medical 00 [place] GI bleed GI bleed Disease Active [facility] - 00:[facility]: Medical [place] Leukocytos Leukocytos Disease Active [facility] is is 08-27 [facility] - 00:00: Medical 00 [place] Hypomagnes Hypomagnes Disease Active [facility] emia emia 07-28 [facility] - 00:00: Medical [place] 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 07-27 Luke s - pancreatit pancreatit 00:00: Ga dical is is 00 Center Peripancre Peripancre Disease Active [facility] atic fluid atic fluid 6 Mariah kes - collection collection 00:00: Ga dical 00 Center Cholangiti Cholangiti Disease Active [facility] s s 4- [facility] - 00:00: Medical 00 [place] Illness, Problem 2019-09-01 Mem oria unspecifie 09:02:02 l d Illness, Deshawn n unspecifie d 09/01/2019 [facility] ILLNESS, Diagnosis Active 2019-08-28 M emoria UNSPECIFIE 00:59:00 l D ILLNESS, Deshawn n UNSPECIFIE D Active [facility] GASTROINTE Diagnosis Active 2019-09-09 Memoria STINAL 21:51:00 l HEMORRHAGE Deshawn n , GASTROINTE UNSPECIFIE STINAL D HEMORRHAGE , UNSPECIFIE D Active [facility] ACUTE Diagnosis Active 2019-09-09 Mem oria POSTHEMORR 21:51:00 l HAGIC ACUTE [place] ANEMIA POSTHEMORR HAGIC ANEMIA Active [facility] HYPOTENSIO Diagnosis Active 2019-09-09 Memoria N, 21:51:00 l UNSPECIFIE Deshawn n D HYPOTENSIO N, UNSPECIFIE D Active [facility] Allergies, Adverse Reactions, Alerts Allergy Allergy Status Severity Reaction(s) Onset Inactive Treating Comm ents Source Name Type Date Date Clinician Morphine Drug Active Nausea And [facility] Allergy Vomiting 02-14 [facility] - 00:00: Medical 00 Center tazobact DA Active [facility] am 09-11 Clear 00:00: Garrett 00 [facility] piperaci DA Active [facility] llin 09-11 Clear 00:00: Garrett [facility] vancomyc DA Active [facility] in 09-11 Clear 00:00: Garrett [facility] MEREPENE DA Active [facility] M 09-11 Clear 00:00: Garrett [facility] Vancomyc Propensi Active Rash Rash with [facility] in ty to 08-27 lip [facility] - Analogue adverse 00:00: swelling Medic al s reaction 00 Center s Piperaci Drug Active Swelling, Pt [facility] Allergy Rash 07-15 received [facility] - obactam 00:00: Zosyn and Medica l 00 vancomyci Center n, and subsequen tly developed a rash with lip swelling. A few days prior to this, pt developed a rash to meropenem . Meropene Drug Active Hives, [facility] m-0.9% Allergy Itching 07-12 [facility] - Sodium 00:00: Medical [facility]ide [facility] Active Memori a in [place] piperaci piperaci Active Memori a llin-sma llin-sam l obactam obactam Nigel meropene meropene Active Memori a chente Manning Social History Social Habit Start Date Stop Date Quantity Comments Source Sex Assigned At [facility] Tobacco use and 2019-12-15 2019-12-15 Never used [facility] kes - exposure 00:00:00 00:00:00 [facility] Alcohol intake 2019-12-15 2019-12-15 [facility]00 (finding) [facility] Social History 2019-08-28 2019-08-28 [facility] Rachel marmolejo 06:50:55 06:50:55 Smoking Status Start Date Stop Date Source Never smoker [facility] Medications Ordered Filled Start Stop Current Ordering Indication Dosage Frequency Signature Comments Components Source Medication Medication Date Date Medication? Clinician (SIG) Name Name ursodioL 2019-02 Yes 500mg QD Take [address] [facility] [address] (ACTIGALL) 1-12 mg by [facility] - 500 MG 20:12: mouth Medical tablet 10 daily. Center pantoprazol 2019-02 Yes 40mg Q.5D Take [address] [facility] e 1-12 tablet (40 [facility] - (PROTONIX) 00:00: mg total) Me dical 40 MG 00 by mouth 2 Center tablet (two) times daily. midodrine 2019-02 Yes 10mg Q.[id number] Take [address] (PROAMATINE 02-16 [id number] tablet (10 [facility] - ) 10 MG 00:00: 3D mg total) Medic al tablet 00 by mouth 3 Center (three) times daily. sucralfate 2019-02- Yes 1g Take [address] [facility] (CARAFATE) 02-05 mLs (1 g Luke s - 100 mg/mL 00:00: 23:59 total) by Ga dical suspension 00 :00 mouth Center every 6 (six) hours for 30 days. traMADoL 2019-02- Yes 100mg Take 2 [facility] (ULTRAM) 50 02-05 11-29 tablets Luke s - mg tablet 00:00: 23:59 (100 mg Medi dk 00 :00 total) by Center mouth every 6 (six) hours as needed for Pain for up to 28 days. Max Daily Amount: 400 mg pantoprazol 2019-02- No 40mg Q.5D Take [address] [facility] e 02-05 tablet (40 [facility] - (PROTONIX) 00:00: 00:00 mg total) M edical 40 MG 00 :00 by mouth 2 Center tablet (two) times daily for 84 days. ondansetron 2019-02- No 4mg Take [address] (ZOFRAN) 4 12 by mouth Luke s - MG tablet 00:00: 00:00 every 12 Med ical 00 :00 (twelve) Center hours as needed for Nausea. traMADoL 2019- No 50mg Take [address] (ULTRAM) 50 10-2318 by mouth Marilyn es - mg tablet 08:30: 00:00 every 6 Medi dk 37 :00 (six) Center hours as needed for Pain. levoFLOXaci 2019- No 750mg QD Take [address] [facility] n 10-23-18 mg by [facility] - (LEVAQUIN) 08:30: 00:00 mouth Medic al 750 MG 37 :00 daily. Center tablet midodrine 2019- No 5mg Q.[id number] Take [address] [facility] (PROAMATINE 10-23 [id number] by mouth 3 [facility] - ) 5 MG 08:30: 00:00 3D (three) Medical tablet 37 :00 times Center daily. senna 2020- Yes 17.2mg QD Take [address] (SENOKOT) 10-23 tablets [facility] - 8.6 mg 00:00: 23:59 (17.2 mg Medica l tablet 00 :00 total) by Center mouth nightly. gabapentin 2020- Yes 200mg Q.[id number] Take [address] [facility] (NEURONTIN) 10-23 [id number] capsules [facility] - 100 MG 00:00: 23:59 3D (200 mg Medical capsule 00 :00 total) by Center mouth 3 (three) times daily. midodrine 2019- No 10mg Q.[id number] Take [address] [facility] (PROAMATINE 10-23 [id number] tablets [facility] - ) 5 MG 00:00: 00:00 3D (10 mg Medical tablet 00 :00 total) by Center mouth 3 (three) times daily. traMADoL 2019- No 100mg Take 2 [facility] (ULTRAM) 50 10-23 tablets Luke s - mg tablet 00:00: 00:00 (100 mg Medi dk 00 :00 total) by Center mouth every 6 (six) hours as needed for Pain. Max Daily Amount: 400 mg metroNIDAZO 2019- No 500mg Q.[id number] Take [address] LE (FLAGYL) 10-20 [id number] mg by [facility] - 500 MG 23:09: 00:00 3D mouth 3 Medical tablet 25 :00 (three) Center times daily. esomeprazol 2019- No 40mg QD Take [address] [facility] e (NEXIUM) 09-25 by mouth Luke s - 40 MG 00:00: 00:00 daily. Medical capsule 00 :00 Center Saline Yes Notes: Memoria Flush 0.9% 7-26 (Same as: l 21:00: BD [place] 00 Posiflush) Saline 2020-0 Yes Notes: Memoria Flush 0.9% 7-26 (Same as: l 21:00: BD Nigel 00 Posiflush) Lidocaine 2019-0 Yes Notes: Memori [...] 0.9% 7-26 (Same as: l 15:08: BD [place] 00 Posiflush) pantoprazol 2019-0 Yes Notes: For [...] over 2 minutes. (Same as: Protonix) Potassium 2019-0 No Notes: Memori a Chloride 7-26 Infuse at l 14:00: a rate of [place] 00 10 mEq/hr. (Same as: KCL) Potassium 2020-0 No Notes: Memori a Chloride 7-26 Infuse at l 14:00: a rate of Nigel 00 10 mEq/hr. (Same as: KCL) ondansetron 2020-0 No 4 mg = 2 Me moria 2 mg/mL 7-25 mL, IVP, l injectable 20:16: Q6H, 0 Sri nn solution 00 Refill(s) ondansetron 2019-0 No 4 mg = 2 Me moria 2 mg/mL 7-25 mL, IVP, l injectable 20:16: Q6H, 0 Sri nn solution 00 Refill(s) D5NS 1,000 2020-0 Yes 1,000 mL, Me moria mL 7-25 Rate: 100 l 13:29: ml/hr, Infuse over: 10 hr, Route: IV, Dosing Weight 68.409 kg, Total Volume: 1,000, Start date: 08/30/19 8:29:00 CDT, Duration: 30 day, Stop date: 09/29/19 8:28:00 CDT, 1.84, m2, 0 D5NS 1,000 2020-0 Yes 1,000 mL, Me moria mL 7-25 Rate: 100 l 13:29: ml/hr, Infuse over: 10 hr, Route: IV, [...] 7-24 25 mL, l (D50W) 21:11: Route: Nigel 00 IVP, Drug Form: INJ, Dosing Weight [...] Infuse at l 14:00: a rate of [place] 00 10 mEq/hr. (Same as: KCL) Potassium 2020-0 No Notes: Memori a Chloride 7-24 Infuse at l 14:00: a rate of [place] 00 10 mEq/hr. (Same as: KCL) Lactulose 2020-0 No Notes: Memori a 667 MG/ML 7-24 (Same l Oral 02:57: as:Chronul Nigel Solution 00 ac) Lactulose 2020-0 No Notes: Memori a 667 MG/ML 7-24 (Same l Oral 02:57: as:Chronul [place] Solution 00 ac) Lactulose 2020-0 No Notes: Memori a 667 MG/ML 7-24 (Same l Oral 02:54: as:Chronul [place] Solution 00 ac) Lactulose 2020-0 No Notes: Memori a 667 MG/ML 7-24 (Same l Oral 02:54: as:Chronul [place] Solution 00 ac) ondansetron 2020-0 Yes Notes: [...] Memoria 7-23 (polyethyl l 19:31: avi glycol [place] 00 electrolyt e solution 4 Liter bottle) [...] tab, PO, l oral 07:35: Daily, # [place] enteric 00 30 tab, 0 coated Refill(s) tablet Acetaminoph 2020-0 No 2 tab, PO, Memoria en 325 MG / 7-23 Q4H, PRN l Hydrocodone 07:35: for pain, H ermann Bitartrate 00 # 84 tab, 5 MG Oral 0 Tablet Refill(s) Ondansetron 2019-0 No 4 mg = 1 Me moria [...] 30 tab, 0 coated Refill(s) tablet Ondansetron 2019-0 Yes Notes: Guy zoila - (Same as: l 07:15: Zofran) [place] 00 MEDICATION WASTE Product Size: 4 mg [...] a 7-23 (Same As: l 07:15: Desyrel) [place] 00 Maalox 2020-0 Yes Notes: Memoria Advanced 7-23 (aluminum l Regular 07:15: hydroxide- Herm ramona Strength 00 magnesium SUSP hyd-simeth icone 200-200-20 mg/5ml 30 ml ud DAKOTAH) Albuterol 2019-0 Yes Notes: Memori a 0.833 MG/ML 7-23 (Same as: l / 07:15: Duoneb) Nigel Ipratropium 00 [place] 0.167 MG/ML Inhalant Solution [DuoNeb] Docusate 2019-0 Yes Notes: Memoria Sodium 100 -23 (Same as: l MG Oral 07:15: Colace) Nigel Capsule 00 (Do Not [Colace] Crush) Robitussin 2020-0 Yes Notes: Memor ia 100 mg/5 mL - (Same as: l oral liquid 07:15: Robitussin [place] 00 ) Zofran 2020-0 Yes Notes: Memoria 7-23 (Same as: l 07:15: Zofran) Nigel 00 MEDICATION WASTE Product Size: 4 mg Product Wasted: ___ mg Hydralazine 2020-0 Yes Notes: Guy zoila - (Same as: l 07:15: Apresoline [place] 00 ) Push over 5 minutes Sodium 2020-0 No 1,000 mL, Memori a Chloride 08-27 Rate: 100 l 0.9% IV 07:15: ml/hr, [place] 1,000 mL 00 Infuse over: 10 hr, Route: IV, Dosing Weight 68.409 kg, Total Volume: 1,000, Start date: 08/28/19 2:15:00 CDT, Duration: 30 day, Stop date: 09/27/19 2:14:00 CDT, 1.84, m2, 0 Saline 2020-0 Yes Notes: Memoria Flush 0.9% - Same as: l 07:15: BD [place] 00 Posiflush Sterile Ondansetron 2019-0 Yes Notes: Guy zoila 08-27 (Same as: l 07:15: Zofran) Nigel 00 MEDICATION WASTE Product Size: 4 mg Product Wasted: ___ mg pantoprazol 2020-0 No Notes: For Memoria e additive 08-27 IV push l 80 mg + 07:15: reconstitu Herm ramona Sodium 00 te with 10 Chloride ml 0.9% 0.9% IV 100 sodium mL chloride and push over 2 minutes. (Same as: Protonix) Trazodone 2020-0 Yes Notes: Memori a - (Same As: l 07:15: Desyrel) [place] 00 Maalox 2020-0 Yes Notes: Memoria Advanced - (aluminum l Regular 07:15: hydroxide- Herm ramona Strength 00 magnesium SUSP hyd-simeth icone 200-200-20 mg/5ml 30 ml ud DAKOTAH) Albuterol 2020-0 Yes Notes: Memori a 0.833 MG/ML - (Same as: l / 07:15: Duoneb) [place] Ipratropium 00 [place] 0.167 MG/ML Inhalant Solution [DuoNeb] Docusate 2020-0 Yes Notes: Memoria Sodium 100 - (Same as: l MG Oral 07:15: Colace) [place]el Capsule 00 (Do Not [Colace] Crush) Robitussin 2020-0 Yes Notes: Memor ia 100 mg/5 mL - (Same as: l oral liquid 07:15: Robitussin [place] 00 ) Zofran 2020-0 Yes Notes: Memoria 7-23 (Same as: l 07:15: Zofran) [place] 00 MEDICATION WASTE Product Size: 4 mg Product Wasted: ___ mg Hydralazine 2019- Yes Notes: Guy zoila - (Same as: l 07:15: Apresoline Nigel ) Push over 5 minutes Sodium 2020-0 No 1,000 mL, Memori a Chloride 08-27 Rate: 100 l 0.9% IV 07:15: ml/hr, [place] 1,000 mL 00 Infuse over: 10 hr, Route: IV, Dosing Weight 68.409 kg, Total Volume: 1,000, Start date: 08/28/19 2:15:00 CDT, Duration: 30 day, Stop date: 09/27/19 2:14:00 CDT, 1.84, m2, 0 Saline 2020-0 Yes Notes: Memoria Flush 0.9% - Same as: l 07:15: BD [place] Posiflush Sterile pantoprazol 2019-0 No Notes: For Memoria e - IV push l 07:07: reconstitu [place] te with 10 ml 0.9% sodium chloride and push over 2 minutes. (Same as: Protonix) Morphine 2020-0 Yes Notes: Memoria - (Same l 07:07: as:MORPhin [place] e Sulfate) Labetalol 2019-0 Yes Notes: Memori a - (Same as: l 07:07: Normodyne, [place] 00 Trandate) Push over 2 minutes Give bolus over 2-3 minutes. NS (Bolus) 2019-0 No 1,000 mL, Me moria IV 7-23 1,000 l 07:07: ml/hr, [place] 00 Infuse Over: 1 hr, Route: IV, [...] Notes: Memoria 7-23 (Same l 07:07: as:MORPhin [place] 00 e Sulfate) Labetalol 2020-0 Yes Notes: Memori a 7-23 (Same as: l 07:07: Normodyne, [place] 00 Trandate) Push over 2 minutes Give bolus over 2-3 minutes. NS (Bolus) 2020-0 No 1,000 mL, Me moria IV 7-23 1,000 l 07:07: ml/hr, [place] 00 Infuse Over: 1 hr, Route: IV, [...] tab, PO, l tablet 17:00: ONCE, 0 [place] 00 Refill(s) Esomeprazol 2020-0 No 40 mg, PO, Memoria e 7-22 Daily, 0 l 14:06: Refill(s) [place] ferrous 2020-0 No 325 mg = 1 Guy zoila sulfate 325 7-22 tab, PO, l MG Oral 14:06: BID, 0 [place] Tablet 00 Refill(s) Esomeprazol 2020-0 No 40 mg, PO, Memoria e 7-22 Daily, 0 l 14:06: Refill(s) [place] ferrous 2020-0 No 325 mg = 1 Guy zoila sulfate 325 7-22 tab, PO, l MG Oral 14:06: BID, 0 [place] Tablet 00 Refill(s) HYDROcodone 2019- No 1{tbl} [...] dical MG tablet 00 :00 total) by [facility] mouth every 12 (twelve) hours for 3 days. HYDROcodone 2019- 2020- No 1{tbl} Take [address] -acetaminop 1-14 01-14 tablet by Mariah montez (NORCO 00:00: 00:00 mouth Medic al 5-325) 00 :00 every 8 Center 5-325 mg (eight) per tablet hours as needed for Pain for up to 7 doses. Max Daily Amount: 3 tablets ondansetron 2018-02- No 4mg Take [address] [facility] (ZOFRAN) 4 -03 03-14 by mouth Luke s - MG tablet 00:00: 00:00 every 12 Med ical 00 :00 (twelve) Center hours. ferrous 2018-02 Yes 1{tbl} Q.5D Take [address] [facility] sulfate 325 2-15 tablet by Marilyn es - (65 FE) MG 00:00: mouth 2 Medi dk tablet 00 (two) Center times daily. pantoprazol 2018-02- No 40mg Q.5D Take [address] [facility] e 012-06 by mouth 2 [facility] - (PROTONIX) 00:00: 00:00 (two) Medic al 40 MG 00 :00 times Center tablet daily . HYDROcodone 2019- No 1{tbl} Take [address] -acetaminop 7-27 -14 tablet by Mariah sweeney - [place] (NORCO 00:00: 00:00 mouth Medic al 5-325) [...] [facility] sodium 6-14 09-07 mg by [facility] - (COLACE) 00:00: 00:00 mouth as Medi dk 100 MG 00 :00 needed. Center capsule nystatin 2019- No Q.5D Apply [facility] (MYCOSTATIN 5-12 05-11 topically Mariah kes - ) 100,000 00:00: 23:59 2 (two) Medi dk unit/gram 00 :00 times Center powder daily. Immunizations Ordered Immunization Filled Immunization Date Status Commen ts Source Name Name Influenza Four-QIV PF 2019-10-[address] [facility] - 3YR+ 00:00:00 [facility] Meningococcal 2019-10-[address] [facility] - Conjugate 00:00:00 [facility] Pneumococcal 2019-10-[address] [facility] - Conjugate (Prevnar) 00:00:00 [facility] Meningococcal B, Omv 2019-10-[address] [facility] - 00:00:00 [facility] HiB 2019-10-[address] [facility] - 00:00:00 [facility] Vital Signs Vital Name Observation Time Observation Value Comments Source Systolic blood 2019-12-18 14:54:00 100 mm[Hg] [facility] Diastolic blood 2019-12-18 14:54:00 64 mm[Hg] [facility] Heart rate 2019-12-18 14:54:00 60 /min [facility] Body temperature 2019-12-18 14:54:00 36.5 Hazel [facility] Respiratory rate 2019-12-18 14:54:00 18 /min [facility] Oxygen saturation in 2019-12-18 14:54:00 97 /min [facility] - Arterial blood by Medical Ce nter Pulse oximetry Body weight 2019-12-15 00:56:00 54.4 kg [facility] BMI 2019-12-15 00:56:00 17.21 kg/m2 [facility] Body height 2019-12-04 23:58:00 177.8 cm [facility] Heart Rate 2019-09-01 04:14:00 [facility] [place] Respitory Rate 2019-09-01 04:14:00 Memori al [place] Systolic (mm Hg) 2019-09-01 04:14:00 Guy riafatuma [place] Diastolic (mm Hg) 2019-09-01 04:14:00 Mem orial [place] Respitory Rate 2019-09-01 01:19:00 Memori al [place] Temperature Oral (F) 2019-09-01 00:33:00 99.1 F [facility] [place] Heart Rate 2019-09-01 00:33:00 Memorial Nigel Respitory Rate 2019-09-01 00:33:00 Memori al [place] Systolic (mm Hg) 2019-09-01 00:33:00 Guy rial [place] Diastolic (mm Hg) 2019-09-01 00:33:00 Mem orial [place] Temperature Oral (F) 2019-08-31 21:00:00 98.3 F Memorial Nigel Heart Rate 2019-08-31 21:00:00 [facility] [place] Systolic (mm Hg) 2019-08-31 21:00:00 Guy rial [place] Diastolic (mm Hg) 2019-08-31 21:00:00 Mem orial Nigel Temperature Oral (F) 2019-08-31 17:00:00 98.4 F [facility] [place] Height 2019-08-28 06:22:00 177.8 cm [facility] Nigel Weight 2019-08-28 06:22:00 [facility] Nigel BMI Calculated 2019-08-28 06:22:00 Memori al [place] Procedures Procedure Date / Time Performing Clinician Source Performed URINALYSIS W/ REFLEX URINE 2019-12-18 15:46:00 Perla Loyd [facility] HEMOGLOBIN AND HEMATOCRIT 2019-12-18 13:34:00 Perla Loyd [facility] CBC (HEMOGRAM ONLY) 2019-12-18 05:38:00 Kiley Gagnon [facility] BASIC METABOLIC PANEL (7) 2019-12-18 05:38:00 Kiley Gagnon [facility] MAGNESIUM 2019-12-18 05:38:00 Kiley Gagnon [facility] PHOSPHORUS 2019-12-18 05:38:00 Kiley Gagnon [facility] PROTHROMBIN TIME/INR 2019-12-18 05:38:00 Kiley Gagnon [facility] CT ABDOMEN/PELVIS WITH IV 2019-12-18 02:06:00 Perla Loyd [facility] HEMOGLOBIN AND HEMATOCRIT 2019-12-17 14:39:00 Kiley Gagnon [facility] HEMOGLOBIN AND HEMATOCRIT 2019-12-17 03:31:00 Kiley Gagnon [facility] CBC (HEMOGRAM ONLY) 2019-12-17 03:31:00 Kiley Gagnon [facility] BASIC METABOLIC PANEL (7) 2019-12-17 03:31:00 Kiley Gagnon [facility] MAGNESIUM 2019-12-17 03:31:00 Kiley Gagnon [facility] PHOSPHORUS 2019-12-17 03:31:00 Kiley Gagnon [facility] PROTHROMBIN TIME/INR 2019-12-17 03:31:00 Marcos Gagnonique Anaid [facility] HEPATIC FUNCTION PANEL 2019-12-17 03:31:00 Chelsi [facility] HEMOGLOBIN AND HEMATOCRIT 2019-12-16 15:09:00 Kiley Gagnon [facility] POCT-GLUCOSE METER 2019-12-16 12:51:00 Katina De La Rosa [facility] HEMOGLOBIN AND HEMATOCRIT 2019-12-16 09:33:00 Florecita Franklin [facility] LACTIC ACID, VENOUS 2019-12-16 09:33:00 Kiley Gagnon [facility] CBC (HEMOGRAM ONLY) 2019-12-16 04:24:00 Kiley Gagnon [facility] BASIC METABOLIC PANEL (7) 2019-12-16 04:24:00 Kiley Gagnon [facility] MAGNESIUM 2019-12-16 04:24:00 Kiley Gagnon [facility] PHOSPHORUS 2019-12-16 04:24:00 Marcos Gagnonique Anaid [facility] PROTHROMBIN TIME/INR 2019-12-16 04:24:00 Marcos Gagnonique Anaid [facility] HEPATIC FUNCTION PANEL 2019-12-16 04:24:00 [facility] 2019-12-16 04:24:00 Wyatt Edgar [facility] HEMOGLOBIN AND HEMATOCRIT 2019-12-15 21:22:00 Florecita Franklin [facility] HEMOGLOBIN AND HEMATOCRIT 2019-12-15 17:02:00 Florecita Franklin [facility] OXYGEN SATURATION, 2019-12-15 13:48:00 Mofor, Kristiyce Tiomela [facility] OXYGEN SATURATION, 2019-12-15 13:14:00 Mofor, Loyce Tiomela [facility] HEMOGLOBIN AND HEMATOCRIT 2019-12-15 10:32:00 Florecita Franklin [facility] CBC (HEMOGRAM ONLY) 2019-12-15 03:47:00 Kiley Gagnon [facility] BASIC METABOLIC PANEL (7) 2019-12-15 03:47:00 Kiley Gagnon [facility] MAGNESIUM 2019-12-15 03:47:00 Kiley Gagnon [facility] PHOSPHORUS 2019-12-15 03:47:00 Kiley Gagnon [facility] PROTHROMBIN TIME/INR 2019-12-15 03:47:00 Kiley Gagnon [facility] HEPATIC FUNCTION PANEL 2019-12-15 03:47:00 Kiley Gagnon [facility] PREPARE LEUKO-REDUCED RBC 2019-12-14 23:54:00 Florecita Franklin [facility] HEMOGLOBIN AND HEMATOCRIT 2019-12-14 21:49:00 Florecita Franklin [facility] LACTIC ACID, VENOUS 2019-12-14 12:44:00 Kiley Gagnon [facility] HEMOGLOBIN AND HEMATOCRIT 2019-12-14 11:29:00 Florecita Franklin [facility] REPORT OF PROCEDURE - 2019-12-14 08:27:29 Marvin Champagne [facility] CBC (HEMOGRAM ONLY) 2019-12-14 04:34:00 Kiley Gagnon [facility] BASIC METABOLIC PANEL (7) 2019-12-14 04:34:00 Kiley Gagnon [facility] MAGNESIUM 2019-12-14 04:34:00 Kiley Gagnon [facility] PHOSPHORUS 2019-12-14 04:34:00 Kiley Gagnon [facility] APTT 2019-12-14 04:34:00 Florecita Franklin [facility] PROTHROMBIN TIME/INR 2019-12-14 04:34:00 Kiley Gagnon [facility] TRANSFUSE LEUKO-REDUCED 2019-12-14 01:09:33 Florecita Franklin [facility] - RED BLOOD CELLS [facility] HEMOGLOBIN AND HEMATOCRIT 2019-12-14 01:00:00 Florecita Franklin [facility] BLOOD GAS, ARTERIAL 2019-12-14 01:00:00 Julianne [facility] IR EMBOLIZATION ARTERIAL 2019-12-13 23:25:00 Julianne [facility] TRANSFUSE LEUKO-REDUCED 2019-12-13 22:06:42 Florecita Franklin [facility] - RED BLOOD CELLS [facility] SARS-COV2/RT-PCR ([facility] & 2019-12-13 17:36:[address] [facility] - REF LABS) [facility] PROTHROMBIN TIME/INR 2019-12-13 17:31:00 Florecita Franklin [facility] PT/APTT 2019-12-13 17:31:00 Florecita Franklin [facility] FIBRINOGEN 2019-12-13 17:31:00 Julianne [facility] UPPER ENDOSCOPY 2019-12-13 16:56:00 Marvin Champagne [facility] CBC (HEMOGRAM ONLY) 2019-12-13 16:27:00 Florecita Franklin [facility] COMPREHENSIVE METABOLIC 2019-12-13 16:27:00 Florecita Franklin [facility] - PANEL [facility] MAGNESIUM 2019-12-13 16:27:00 Florecita Franklin [facility] TYPE AND SCREEN, AUTOMATED 2019-12-13 16:27:00 Florecita Franklin [facility] REPORT OF PROCEDURE - 2019-12-13 00:00:00 ProviderPawan [facility] ENDOSCOPY SCAN Scanning [facility] REPORT OF PROCEDURE - 2019-12-08 08:16:48 Wilmer Santiago CH I [facility] POCT-GLUCOSE METER 2019-12-07 12:44:00 Yrn Hannahd CH I [facility] POCT-GLUCOSE METER 2019-12-07 06:04:00 Yrn Hannah Reshad [facility] BASIC METABOLIC PANEL (7) 2019-12-07 05:47:00 Stu Neyda [facility] PROTHROMBIN TIME/INR 2019-12-07 05:47:00 Stu [facility] MAGNESIUM 2019-12-07 05:47:00 Stu [facility] PHOSPHORUS 2019-12-07 05:47:00 Stu [facility] CBC W/PLT COUNT & AUTO 2019-12-07 05:47:00 Stu [facility] POCT-GLUCOSE METER 2019-12-06 23:52:00 Yrn Hannah Reshad [facility] HEMOGLOBIN AND HEMATOCRIT 2019-12-06 20:41:00 Rayo Valdez [facility] POCT-GLUCOSE METER 2019-12-06 17:14:00 Yrn Hannah Reshad [facility] POCT-GLUCOSE METER 2019-12-06 12:27:00 Yrn Hannah Reshad [facility] POCT-GLUCOSE METER 2019-12-06 05:56:00 Yrn Hannah Reshad [facility] CBC W/PLT COUNT & AUTO 2019-12-06 05:23:00 Stu [facility] BASIC METABOLIC PANEL (7) 2019-12-06 05:22:00 Stu [facility] PROTHROMBIN TIME/INR 2019-12-06 05:22:00 Stu [facility] MAGNESIUM 2019-12-06 05:22:00 Stu [facility] PHOSPHORUS 2019-12-06 05:22:00 Stu [facility] POCT-GLUCOSE METER 2019-12-05 23:28:00 Yrn Hannah [facility] H. PYLORI ANTIGEN, STOOL 2019-12-05 19:28:00 Stu [facility] HEMOGLOBIN AND HEMATOCRIT 2019-12-05 19:26:00 Wilmer Santiago [facility] LIPASE 2019-12-05 19:25:00 Lou Benavides [facility] US THORACENTESIS 2019-12-05 18:00:00 Lou Benavides [facility] XR CHEST 1 VIEW 2019-12-05 17:59:00 Michelle Eric [facility] s - PORTABLE/BEDSIDE [facility] GLUCOSE PLEURAL FLUID 2019-12-05 17:55:00 Lou Benavides [facility] PROTEIN, TOTAL, PLEURAL 2019-12-05 17:55:00 Lou Benavides [facility] BODY FLUID CELL COUNT WITH 2019-12-05 17:54:00 Lou Benavides [facility] BODY FLUID CULTURE + GRAM 2019-12-05 17:54:00 Lou Benavides [facility] LACTATE DEHYDROGENASE 2019-12-05 17:36:00 Yrn Hannah [facility] - (LD), PLEURAL FLUID Medical [facility] er AMYLASE, BODY FLUID 2019-12-05 17:36:00 Yrn Hannah [facility] POCT-GLUCOSE METER 2019-12-05 11:42:00 Yrn Hannah [facility] POCT-GLUCOSE METER 2019-12-05 05:25:00 Todd [facility] BASIC METABOLIC PANEL (7) 2019-12-05 05:18:00 Stu [facility] PROTHROMBIN TIME/INR 2019-12-05 05:18:00 Stu [facility] MAGNESIUM 2019-12-05 05:18:00 Stu [facility] PHOSPHORUS 2019-12-05 05:18:00 Stu [facility] CBC W/PLT COUNT & AUTO 2019-12-05 05:18:00 Ye [facility] POCT-GLUCOSE METER 2019-12-04 17:48:[facility]PELVIS WITH IV 2019-12-04 13:15:00 [facility]elle Waters [facility] HEMOGLOBIN AND HEMATOCRIT 2019-12-04 12:36:00 Lucille Belcher [facility] CBC (HEMOGRAM ONLY) 2019-12-04 12:36:00 Noelle Waters [facility] POCT-GLUCOSE METER 2019-12-04 11:54:00 Todd [facility] POCT-GLUCOSE METER 2019-12-04 05:43:00 [facility] BASIC METABOLIC PANEL (7) 2019-12-04 04:23:00 Stu [facility] PROTHROMBIN TIME/INR 2019-12-04 04:23:00 Stu [facility] CBC W/PLT COUNT & AUTO 2019-12-04 04:23:00 Ye Lucille [facility] HEMOGLOBIN AND HEMATOCRIT 2019-12-04 00:17:00 Ye [facility] PREPARE LEUKO-REDUCED RBC 2019-12-03 23:54:00 Vaibhav Bob [facility] POCT-GLUCOSE METER 2019-12-03 23:22:00 [facility] HEMOGLOBIN AND HEMATOCRIT 2019-12-03 18:23:00 Lucille Belcher [facility] POCT-GLUCOSE METER 2019-12-03 17:35:00 Brooks [facility] UPPER ENDOSCOPY,SUBMUCOSAL 2019-12-03 15:42:00 Wilmer Santiago [facility] POCT-GLUCOSE METER 2019-12-03 11:46:00 Brooks [facility] HEMOGLOBIN AND HEMATOCRIT 2019-12-03 11:40:00 Lucille Belcher [facility] POCT-GLUCOSE METER 2019-12-03 06:09:00 [facility] BASIC METABOLIC PANEL (7) 2019-12-03 04:16:00 Stu [facility] PROTHROMBIN TIME/INR 2019-12-03 04:16:00 Stu [facility] CBC W/PLT COUNT & AUTO 2019-12-03 04:16:00 Lucille Belcher [facility] HEMOGLOBIN AND HEMATOCRIT 2019-12-03 00:58:00 Vaibhav Bob [facility] TRANSFUSE LEUKO-REDUCED 2019-12-02 23:36:31 Vaibhav Bob [facility] - RED BLOOD CELLS [facility] POCT-GLUCOSE METER 2019-12-02 23:26:00 Brooks [facility] US ABDOMINAL WITH DOPPLER 2019-12-02 20:20:00 Noelle Waters [facility] ABORH, MANUAL 2019-12-02 19:55:00 Vaibhav Bob [facility] HEMOGLOBIN AND HEMATOCRIT 2019-12-02 18:17:00 Lucille Belcher [facility] POCT-GLUCOSE METER 2019-12-02 17:23:00 Brooks, [facility] POCT-GLUCOSE METER 2019-12-02 12:20:00 [facility] HEMOGLOBIN AND HEMATOCRIT 2019-12-02 12:17:00 [facility]OV[facility] & 2019-12-02 08:35:[address] [facility] BASIC METABOLIC PANEL (7) 2019-12-02 05:40:00 Stu [facility] PROTHROMBIN TIME/INR 2019-12-02 05:40:00 Stu [facility] CBC W/PLT COUNT & AUTO 2019-12-02 05:40:00 [facility] BASIC METABOLIC PANEL (7) 2019-12-01 23:15:00 [facility] PROTHROMBIN TIME/INR 2019-12-01 23:15:00 [facility] HEPATIC FUNCTION PANEL 2019-12-01 23:15:00 [facility] LIPASE 2019-12-01 23:15:00 Belcher [facility] CBC W/PLT COUNT & AUTO 2019-12-01 23:15:00 [facility] RHYTHM STRIP - SCAN 2019-10-28 12:11:28 Pawan Lowe [facility] POCT-GLUCOSE METER 2019-10-24 08:37:00 Oscar [facility] BASIC METABOLIC PANEL (7) 2019-10-24 06:13:[address] [facility] MAGNESIUM 2019-10-24 06:13:00 Lexie [facility] PHOSPHORUS 2019-10-24 06:13:00 [facility] PT/APTT 2019-10-24 06:13:00 [facility] CBC (HEMOGRAM ONLY) 2019-10-24 06:13:00 Fabiola Le [facility] POCT-GLUCOSE METER 2019-10-23 21:11:00 Oscar [facility] POCT-GLUCOSE METER 2019-10-23 16:27:00 Oscar [facility] POCT-GLUCOSE METER 2019-10-23 11:46:00 Oscar [facility] POCT-GLUCOSE METER 2019-10-23 07:45:00 Oscar [facility] BASIC METABOLIC PANEL (7) 2019-10-23 06:34:00 Cr Owen [facility] MAGNESIUM 2019-10-23 06:34:00 Lexie [facility] PHOSPHORUS 2019-10-23 06:34:00 Lexie [facility] PT/APTT 2019-10-23 06:34:00 Lexie [facility] CBC (HEMOGRAM ONLY) 2019-10-23 06:34:00 Fabiola Le [facility] CBC W/PLT COUNT & AUTO 2019-10-22 22:27:[address] [facility] POCT-GLUCOSE METER 2019-10-22 21:30:00 Oscar [facility] POCT-GLUCOSE METER 2019-10-22 15:36:00 Oscar [facility] POCT-GLUCOSE METER 2019-10-22 12:14:00 Oscar [facility] POCT-GLUCOSE METER 2019-10-22 06:51:00 Oscar [facility] POCT-GLUCOSE METER 2019-10-22 06:27[facility]OL[facility]EL (7) 2019-10-22 06:24:00 Cr Owen I [facility] MAGNESIUM 2019-10-22 06:24:00 [facility] 2019-10-22 06:24:00 [facility] PT/APTT 2019-10-22 06:24:00 [facility] hospitalparker [facility] CBC (HEMOGRAM ONLY) 2019-10-22 06:24:00 Fabiola Le [facility] POCT-GLUCOSE METER 2019-10-21 23:48:00 Negin Moore [facility] POCT-GLUCOSE METER 2019-10-21 18:40:00 [facility] POCT-GLUCOSE METER 2019-10-21 12:29:00 [facility] AMYLASE PERITONEAL FLUID 2019-10-21 10:19:00 Snow Adams [facility] BASIC METABOLIC PANEL (7) 2019-10-21 09:59:[address] [facility] MAGNESIUM 2019-10-21 09:59:00 [facility] PHOSPHORUS 2019-10-21 09:59:00 [facility] PT/APTT 2019-10-21 09:59:00 [facility] CBC (HEMOGRAM ONLY) 2019-10-21 09:59:00 Fabiola Le [facility] SARS-COV2/RT-PCR ([facility] & 2019-10-21 07:15:00 Catherine Maciel [facility] - REF LABS) [facility] POCT-GLUCOSE METER 2019-10-21 06:57:00 Sixto [facility] POCT-GLUCOSE METER 2019-10-21 06:28:00 Sixto [facility] POCT-GLUCOSE METER 2019-10-21 05:58:00 Snow Adams [facility] POCT-GLUCOSE METER 2019-10-21 00:05:00 Snow Adams [facility] POCT-GLUCOSE METER 2019-10-20 17:46:00 Snow Adams [facility] POCT-GLUCOSE METER 2019-10-20 11:45:00 [facility] PO[facility]SE METER 2019-10-20 07:04:00 [facility] center[facility] BASIC METABOLIC PANEL (7) 2019-10-20 03:39:[address] [facility] MAGNESIUM 2019-10-20 03:39:00 Erin [facility] PHOSPHORUS 2019-10-20 03:39:00 [facility] PT/APTT 2019-10-20 03:39:00 [facility] CBC (HEMOGRAM ONLY) 2019-10-20 03:39:00 Fabiola Le [facility] POCT-GLUCOSE METER 2019-10-20 00:18:00 [facility] TRANSFUSION SERVICE REPORT 2019-10-19 18:01:34 Pawan Lowe [facility] - - SCAN [facility] POCT-GLUCOSE METER 2019-10-19 17:28:00 Ashley Adamsfawad [facility] BASIC METABOLIC PANEL (7) 2019-10-19 16:11:00 Chelo Collins [facility] PHOSPHORUS 2019-10-19 16:11:00 MofChelo lopez [facility] MAGNESIUM 2019-10-19 16:11:00 MoforChelo [facility] POCT-GLUCOSE METER 2019-10-19 12:30:00 AcaciaLogan armendarizlupefawad [facility] POCT-GLUCOSE METER 2019-10-19 11:56:00 AcaciaangelLogancanovanasfawad [facility] XR CHEST 1 VIEW 2019-10-19 08:05:00 [facility] POCT-GLUCOSE METER 2019-10-19 06:37:00 SixtoLogancanovanasfawad [facility] BASIC METABOLIC PANEL (7) 2019-10-19 01:29:[address] [facility] MAGNESIUM 2019-10-19 01:29:00 Lexie [facility] PHOSPHORUS 2019-10-19 01:29:00 [facility] BLOOD GAS, ARTERIAL 2019-10-19 01:29:00 [facility] PT/APTT 2019-10-19 01:29:00 [facility] CBC (HEMOGRAM ONLY) 2019-10-19 01:29:00 Chelo Collins [facility] POCT-GLUCOSE METER 2019-10-19 00:20:00 Sixto [facility] PREPARE RBC 2019-10-18 23:55:00 Catherine Maciel [facility] PREPARE RBC 2019-10-18 23:54:00 Catherine Maciel [facility] CBC (HEMOGRAM ONLY) 2019-10-18 20:26:00 [facility] REPORT 2019-10-18 18:05:00 Pawan Lowe [facility] - - SCAN Scanning [facility] POCT-GLUCOSE METER 2019-10-18 17:16:00 Sixto [facility] CBC (HEMOGRAM ONLY) 2019-10-18 12:20:00 Chelo Collins [facility] POCT-GLUCOSE METER 2019-10-18 12:01:00 [facility] BLOOD GAS, ARTERIAL 2019-10-18 05:05:00 [facility] CBC (HEMOGRAM ONLY) 2019-10-18 04:09:00 [facility] BASIC METABOLIC PANEL (7) 2019-10-18 04:09:[address] [facility] MAGNESIUM 2019-10-18 04:09:00 [facility] PHOSPHORUS 2019-10-18 04:09:00 [facility] PT/APTT 2019-10-18 04:09:00 [facility] XR CHEST 1 VIEW 2019-10-18 03:48:00 Mitchell Sweeney [facility] PORTABLE/BEDSIDE [facility] BLOOD GAS, ARTERIAL 2019-10-18 01:22:00 Issa Johnson [facility] POCT-GLUCOSE METER 2019-10-18 00:42:00 [facility] CBC (HEMOGRAM ONLY) 2019-10-17 22:18:00 [facility] BASIC METABOLIC PANEL (7) 2019-10-17 22:18:[address] [facility] MAGNESIUM 2019-10-17 22:18:00 [facility] PHOSPHORUS 2019-10-17 22:18:00 [facility] BLOOD GAS, ARTERIAL 2019-10-17 22:18:00 [facility] PT/APTT 2019-10-17 22:18:00 Cr Owen [facility] PREPARE PLASMA 2019-10-17 21:19:00 Catherine Maciel [facility] PREPARE PLATELETS 2019-10-17 21:19:00 Catherine Maciel [facility] TRANSFUSE LEUKO-REDUCED 2019-10-17 20:23:46 Nelson Grier CH I [facility] - RED BLOOD CELLS [facility] TRANSFUSE LEUKO-REDUCED 2019-10-17 19:57:19 Nelson Grier CH I [facility] - RED BLOOD CELLS [facility] CALCIUM, IONIZED 2019-10-17 19:50:15 Marc Clark [facility] BLOOD GAS, ARTERIAL 2019-10-17 19:50:15 Marc Clark [facility] SODIUM NA-STAT LAB 2019-10-17 19:50:15 Marc Clark CH I [facility] POTASSIUM-STAT LAB 2019-10-17 19:50:15 Marc Clark [facility] GLUCOSE-STAT LAB 2019-10-17 19:50:15 Marc Clark [facility] HGB/HCT (H&H) - STAT LAB 2019-10-17 19:50:15 Marc Clark [facility] PROTHROMBIN TIME/INR 2019-10-17 19:38:51 [facility] 2019-10-17 19:38:51 [facility] LEUKO-REDUCED 2019-10-17 19:35:30 Nelson Grier CH I [facility] - RED BLOOD CELLS [facility] PREPARE RBC 2019-10-17 19:35:00 Catherine Maciel [facility] TRANSFUSE LEUKO-REDUCED 2019-10-17 19:21:12 Nelson Grier CH I [facility] - RED BLOOD CELLS [facility] CALCIUM, IONIZED 2019-10-17 18:51:43 Marc Clark [facility] BLOOD GAS, ARTERIAL 2019-10-17 18:51:43 Marc Clark [facility] SODIUM NA-STAT LAB 2019-10-17 18:51:43 Marc Clark [facility] POTASSIUM-STAT LAB 2019-10-17 18:51:43 Marc Clark [facility] GLUCOSE-STAT LAB 2019-10-17 18:51:43 Marc Clark [facility] HGB/HCT (H&H) - STAT LAB 2019-10-17 18:51:43 Marc Clark [facility] TRANSFUSE LEUKO-REDUCED 2019-10-17 18:41:07 Nelson Grier CH [facility] RED BLOOD CELLS [facility] TYPE AND SCREEN, AUTOMATED 2019-10-17 17:32:00 Marc Clark [facility] FL FLUORO NON-SPECIFIC UP 2019-10-17 17:14:00 Marc Clark [facility] BLOOD GAS, ARTERIAL 2019-10-17 16:59:19 Nelson Grier [facility] SODIUM NA-STAT LAB 2019-10-17 16:59:19 Nelson Grier [facility] POTASSIUM-STAT LAB 2019-10-17 16:59:19 Nelson Grier [facility] GLUCOSE-STAT LAB 2019-10-17 16:59:19 Nelson Grier [facility] HGB/HCT (H&H) - STAT LAB 2019-10-17 16:59:[address] [facility] TISSUE EXAM 2019-10-17 16:26:00 Marc Clark [facility] BLOOD GAS, ARTERIAL 2019-10-17 15:20:44 Nelson Grier [facility] SODIUM NA-STAT LAB 2019-10-17 15:20:44 Nelson Grier [facility] POTASSIUM-STAT LAB 2019-10-17 15:20:44 Nelson Grier [facility] GLUCOSE-STAT LAB 2019-10-17 15:20:44 Nelson Grier [facility] HGB/HCT (H&H) - STAT LAB 2019-10-17 15:20:[address] [facility] CHOLECYSTECTOMY 2019-10-17 13:39:00 Marc Clark Jimenez [facility] SPLENECTOMY 2019-10-17 13:39:00 Marc Clark [facility] POCT-GLUCOSE METER 2019-10-17 06:21:00 Snow Adams [facility] POCT-GLUCOSE METER 2019-10-17 01:06:00 Snow Adams [facility] CT ABDOMEN/PELVIS WITH & 2019-10-16 10:43:00 Snow Adams I [facility] - WITHOUT IV CONTRAST [facility] er REPORT OF PROCEDURE - 2019-10-15 18:42:29 Wilmer Santiago I [facility] ENDOSCOPY [facility] UPPER ENDOSCOPY,ULTRASOUND 2019-10-15 18:02:00 Wilmer Santiago [facility] POCT-GLUCOSE METER 2019-10-15 12:47:00 Snow Adams [facility] POCT-GLUCOSE METER 2019-10-15 12:14:00 Snow Adams [facility] POCT-GLUCOSE METER 2019-10-15 08:52:00 Snow Adams [facility] POCT-GLUCOSE METER 2019-10-15 08:31:00 Snow Adams [facility] URINALYSIS W/ MICROSCOPIC 2019-10-15 08:13:00 Cr Owen I [facility] IGG SUBCLASS-4 ONLY 2019-10-15 05:32:00 [facility] COMPREHENSIVE METABOLIC 2019-10-15 05:32:00 Jorge Arcos In [facility] CBC (HEMOGRAM ONLY) 2019-10-15 05:32:00 Jorge Arcos [facility] PT/APTT 2019-10-15 05:32:00 Jorge Arcos [facility] HEPATIC FUNCTION PANEL 2019-10-14 11:59:00 [facility] BASIC METABOLIC PANEL (7) 2019-10-14 11:59:00 [facility] XR ABDOMEN / KUB 1 VIEW 2019-10-14 09:16:00 [facility] SARS-COV2/RT-PCR ([facility] & 2019-10-14 04:48:00 [facility] BASIC METABOLIC PANEL (7) 2019-10-14 04:34:00 Jessica, Catherine [facility] HEPATIC FUNCTION PANEL 2019-10-14 04:34:00 Jessica, Catherine [facility] MAGNESIUM 2019-10-14 04:34:00 Jessica, Catherine [facility] PT/APTT 2019-10-14 04:34:00 Jessica, [facility] IRON, TIBC, % SAT. 2019-10-14 04:34:00 [facility] LIPASE 2019-10-14 04:34:00 [facility] TRIGLYCERIDES 2019-10-14 04:34:00 [facility] CBC W/PLT COUNT & AUTO 2019-10-14 04:34:00 Jessica, Catherine Khadijah [facility] I [facility] SARS-COV2/RT-PCR ([facility] [facility] & 2019-08-26 19:33:00 [facility] REF LABS) [facility] RHYTHM STRIP - SCAN 2019-02-26 16:18:13 Provider, [facility] TRANSFUSION SERVICE REPORT 2019-02-19 18:00:43 Provider, [facility] RHYTHM STRIP - SCAN 2019-02-19 11:21:51 Provider, [facility] PREPARE LEUKO-REDUCED RBC 2019-02-18 23:54:00 Jacob Pinon [facility] TRANSFUSION SERVICE REPORT 2019-02-18 18:00:29 Provider, [facility] COMPREHENSIVE METABOLIC 2019-02-18 13:36:00 [facility] FERRITIN 2019-02-18 13:36:00 [place], [facility] HEMOGLOBIN AND HEMATOCRIT 2019-02-18 12:16:00 Jacob Pinon [facility] TRANSFUSE LEUKO-REDUCED 2019-02-17 14:53:01 Jacob Pinon I [facility] RED BLOOD CELLS [facility] TYPE AND SCREEN, AUTOMATED 2019-02-17 09:56:00 Jacob Pinon [facility] HEMOGLOBIN AND HEMATOCRIT 2019-02-17 06:19:00 Carlos Fan [facility] CBC (HEMOGRAM ONLY) 2019-02-17 04:18:00 Jacob Pinon [facility] BASIC METABOLIC PANEL (7) 2019-02-17 04:18:00 Jacob Pinon [facility] VITAMIN B12 AND FOLATE 2019-02-17 04:18:00 Jacob Pinon [facility] TSH/FREE T4 IF INDICATED 2019-02-17 04:18:00 Jacob Pinon [facility] IRON, TIBC, % SAT. 2019-02-17 04:18:00 Jacob Pinon [facility] (WITHOUT FERRITIN) Medical Cente r LIPASE 2019-02-17 04:18:00 Ricardo Rainey [facility] HEMOGLOBIN AND HEMATOCRIT 2019-02-16 10:19:00 Jacob Pinon [facility] HEPATIC FUNCTION PANEL 2019-02-16 04:23:00 Melissa Farmer [facility] PT/APTT 2019-02-16 04:23:00 [facility] [facility] PROTHROMBIN TIME/INR 2019-02-16 04:23:00 [place] [facility] CBC (HEMOGRAM ONLY) 2019-02-16 04:23:00 Jacob Pinon [facility] COMPREHENSIVE METABOLIC 2019-02-16 04:23:00 Jacob Pinon [facility] LIPASE 2019-02-16 04:23:00 Redd [facility] REPORT OF PROCEDURE - 2019-02-15 12:51:41 Naz [facility] [place] ERCP 2019-02-15 12:32:00 Anz, [facility] [place] CYTOLOGY REQUEST 2019-02-15 12:26:16 Naz, [facility] [place] CYTOLOGY 2019-02-15 12:26:00 Naz [facility] [place] CBC W/PLT COUNT & AUTO 2019-02-15 11:55:00 Ricardo Rainey [facility] ERCP 2019-02-15 11:00:00 Naz, [facility] [place] ERCP,BALLOON SWEEPING 2019-02-15 11:00:00 Naz, [facility] [place] ERCP,BILIARY STENT 2019-02-15 11:00:00 Naz, [facility] [place] HEPATIC FUNCTION PANEL 2019-02-15 06:00:00 Fortunato jaspreet [facility] BASIC METABOLIC PANEL (7) 2019-02-15 06:00:00 Melissa Farmer [facility] PT/APTT 2019-02-15 06:00:00 [facility] [facility] PROTHROMBIN TIME/INR 2019-02-15 06:00[facility] AUTO 2019-02-14 06:24[facility]00 [facility] 2019-02-14 06:24:00 Melissa Farmer [facility] HEPATIC FUNCTION PANEL 2019-02-14 04:34:00 [facility] BASIC METABOLIC PANEL (7) 2019-02-14 04:34:00 FortunatoMelissa [facility] PT/APTT 2019-02-14 04:34:00 [facility] PROTHROMBIN TIME/INR 2019-02-14 04:34:00 [facility] Plan of Care Planned Activity Planned Date Details Comments Source Future Scheduled 2019-12-19 PNEUMOCOCCAL VACCINE Critical access hospital 00:00:00 0-64 YRS (1 of 1 - Medical C enter PPSV23) [code = PNEUMOCOCCAL VACCINE 0-64 YRS (1 of 1 - PPSV23)] Encounters Start End Encounter Admission Attending Care Care Encounter Source Date/Time Date/Time Type Type Clinicians Facility Department ID 2019-10-14 Outpatient [facility] [address] [facility] 12:19:08 2019-09-02 Inpatient U [facility] 05:03:00 2019-08-[address] [facility] 00:57:00 2019-08-28 2019-08-28 Outpatient [facility] [id number] 802 00:57:00 00:57:00 Carlos Larson 2019-08-28 2019-08-28 Outpatient [facility] [id number] 00:57:00 00:57:00 Carlos Larson Results Test Description Test Time Test Comments Results Result Comments Source Urinalysis w/Microscopic + Reflex to Culture 2019-12-18 16:4 9:00 Test Item Value Reference Range Interpretation Comme nts Color, UA (test code = 5778-6) Light Yellow Clarity, UA (test code = 5767-9) Clear Specific [place], UA (test code = 5811-5) 1.015 1.001-1.035 pH, UA (test code = 5803-2) 6.5 5.0-8.0 Protein, UA (test code = 75143-1) Negative Negative Glucose, UA (test code = 365) Negative Negative Ketones, UA (test code = 2514-8) 10 mg/dL Negative A Bilirubin, UA (test code = 57893-1) Negative Negative Blood, UA (test code = 95583-9) Negative Negative Nitrite, UA (test code = 5802-4) Negative Negative Leukocytes, UA (test code = 5799-2) Negative Negative Urobilinogen, UA (test code = 26786-4) 0.2 mg/dL 0.2-1 RBC, UA (test code = 07825-9) 0 /HPF WBC, UA (test code = 5821-4) <1 /HPF Specimen Source (test code = 2795) ABAD (test code = ABAD) Transmitter Engineer In Charge ID - [auto] Lab Interpretation (test code = 13152-9) [facility] [id number] 16:49:00 Test Item Value Reference Range Interpretation Comments COLOR (BEAKER) (test code = 470) Light Yellow CLARITY (BEAKER) (test code = Clear 469) SPECIFIC GRAVITY UA (BEAKER) 1.015 1.001-1.035 (test code = 468) PH UA (BEAKER) (test code = 467) 6.5 5.0-8.0 PROTEIN UA (BEAKER) (test code = Negative Negative 464) GLUCOSE UA (BEAKER) (test code = Negative Negative 365) KETONES UA (BEAKER) (test code = 10 mg/dL Negative A 371) BILIRUBIN UA (BEAKER) (test code Negative Negative = 462) BLOOD UA (BEAKER) (test code = Negative Negative 461) NITRITE UA (BEAKER) (test code = Negative Negative 465) LEUKOCYTE ESTERASE UA (BEAKER) Negative Negative (test code = 466) UROBILINOGEN UA (BEAKER) (test 0.2 mg/dL 0.2-1.0 code = 463) RBC UA (BEAKER) (test code = 0 /HPF 519) WBC UA (BEAKER) (test code = < /HPF 520) SOURCE(BEAKER) (test code = 2795) Transmitter Engineer In Charge ID - [auto]Hemoglobin and [id number] 13:46:00 Test Item Value Reference Range Interpretation Comments Hemoglobin (test code = 9.9 13.7- 17.5 GM/DL L 786-4) Hematocrit (test code = 30.5 % 40.1-51 L 4544-3) ABAD (test code = ABAD) Transmitter Engineer In Charge ID - [id number] Lab Interpretation (test Abnormal code = 06518-8) [facility]MO[facility] AND [id number] 13:46:00 Test Item Value Reference Range Interpretation Comments HEMOGLOBIN (BEAKER) (test code = 9.9 GM/DL 13.7-17.5 L 410) HEMATOCRIT (BEAKER) (test code = 30.5 % 40.1-51.0 L 411) Transmitter Engineer In Charge ID - [id number] Metabolic [id number] 07:18:00 Test Item Value Reference Range Interpretation Comments Sodium (test code = 139 meq/L 327-818 1949-2) Potassium (test code = 3.5 meq/L 3.5-5.1 2823-3) Chloride (test code = 106 meq/L 98-107 2075-0) CO2 (test code = 29 meq/L 22-29 2028-9) BUN (test code = 4 mg/dL 7-21 L 3094-0) Creatinine (test code 0.51 mg/dL 0.57-1.25 L = 2160-0) Glucose (test code = 67 mg/dL 70-105 L 2345-7) Calcium (test code = 7.5 mg/dL 8.4-10.2 L 81482-9) EGFR (test code = 191 mL/min/1.73 [place] [address]-2) NOT ACCURATE CREATININE CLEARANCE IN PREDICTING GLOMERULAR FILTRATION RATE . ESTIMATED GFR I S NOT APPLICABLE FOR DIALYSIS PATIENTS. AABD (test code = ABAD) Transmitter Engineer In Charge ID - SOTERO M Lab Interpretation Abnormal (test code = 50593-4) [facility] California[facility]2020-[facility]-12 07:18:00 Test Item Value Reference Range Interpretation Comments Magnesium (test code = 1.7 mg/dL 1.6-2.6 66797-2) ABAD (test code = ABAD) Transmitter Engineer In Charge ID - SOTERO M Lab Interpretation (test Normal code = 36333-6) [facility] California[facility]osph[facility]2020-11-12 07:18:00 Test Item Value Reference Range Interpretation Comments Phosphorus (test code = 3.8 mg/dL 2.3-4.7 2777-1) ABAD (test code = ABAD) Transmitter Engineer In Charge HELIO Hernandez Lab Interpretation (test Normal code = 40113-1) [facility] California[facility]IUM2020-11-12 07:18:00 Test Item Value Reference Range Interpretation Comments MAGNESIUM (BEAKER) (test code = 1.7 mg/dL 1.6-2.6 627) Transmitter Engineer In Charge ID - SOTERO [id number] 07:18:00 Test Item Value Reference Range Interpretation Comments PHOSPHORUS (BEAKER) (test code = 3.8 mg/dL 2.3-4.7 604) Transmitter Engineer In Charge HELIO BEY MBASIC METABOLIC [id number] 07:18:00 Test Item Value Reference Range Interpretation [...] L (test code = 358) GLUCOSE RANDOM 67 mg/dL 70-105 L (BEAKER) (test code = 652) CALCIUM (BEAKER) 7.5 mg/dL 8.4-10.2 L (test code = 697) EGFR (BEAKER) (test 191 mL/min/1.73 ESTIM ATED GFR IS code = 1092) sq m NOT ACCURATE CREATININE CLEARANCE IN PREDICTING GLOMERULAR FILTRATION RATE . ESTIMATED GFR I S NOT APPLICABLE FOR DIALYSIS PATIEN TS. Transmitter Engineer In Charge ID - SOTERO [facility]BC (Hemogram only)2019-12-18 06:28:00 Test Item Value Reference Range Interpretation Comments WBC (test code = 6690-2) 8.3 3.5- 10.5 K/L RBC (test code = 789-8) 2.73 4.63- 6.08 M/L L MCHC (test code = 786-4) 32.5 32.3- 36.5 GM/DL L Hematocrit (test code = 4544-3) 25.5 % 40.1-51 L MCV (test code = 787-2) 93.4 fL 79-92.2 H MCH (test code = 785-6) 30.4 pg 25.7-32.2 RDW (test code = 788-0) 15.6 % 11.6-14.4 H Platelets (test code = 777-3) 626 150- 450 K/CU MM H MPV (test code = 65825-5) 9.6 fL 9.4-12.4 nRBC (test code = 413) 0 0- 0 /100 WBC Lab Interpretation (test code = Abnormal 08670-0) [facility] (HEMOGRAM ONLY)2019-12-18 06:28:00 Test Item Value Reference Range Interpretation Comments WHITE BLOOD CELL COUNT (BEAKER) 8.3 K/ L 3.5-10.5 (test code = 775) RED BLOOD CELL COUNT (BEAKER) 2.73 M/ L 4.63-6.08 L (test code = 761) HEMOGLOBIN (BEAKER) (test code = 8.3 GM/DL 13.7-17.5 L 410) HEMATOCRIT (BEAKER) (test code = 25.5 % 40.1-51.0 L 411) MEAN CORPUSCULAR VOLUME (BEAKER) 93.4 fL 79.0-92.2 H (test code = 753) MEAN CORPUSCULAR HEMOGLOBIN 30.4 pg 25.7-32.2 (BEAKER) (test code = 751) MEAN CORPUSCULAR HEMOGLOBIN CONC 32.5 GM/DL 32.3-36.5 (BEAKER) (test code = 752) RED CELL DISTRIBUTION WIDTH 15.6 % 11.6-14.4 H (BEAKER) (test code = 412) PLATELET COUNT (BEAKER) (test 626 K/CU MM 150-450 H code = 756) MEAN PLATELET VOLUME (BEAKER) 9.6 fL 9.4-12.4 (test code = 754) NUCLEATED RED BLOOD CELLS 0 /100 WBC 0-0 (BEAKER) (test code = 413) Prothrombin time/[id number] 06:27:00 Test Item Value Reference Range Interpretation Comments Protime (test code = 16.8 11.9- 14.2 H 5902-2) seconds INR (test code = 1.40 <=5.90 6301-6) ABAD (test code = ABAD) Effective 07/03/2018: PT Reference Range ChangeNew: 11.9-14.2 Previous: 11.7-14.7 RECOMMENDED COUMADIN/WARFARIN INR THERAPY RANGESSTANDARD DOSE: 2.0-3.0 Includes: PROPHYLAXIS for venous thrombosis, systemic embolization; TREATMENT for venous thrombosis and/or pulmonary embolus.HIGH RISK: Target INR is 2.5-3.5 for patients wiht mechanical heart valves. Lab Interpretation Abnormal (test code = 52087-0) [facility] CaliforniaPROTHROMBIN TIME/[id number] 06:27:00 Test Item Value Reference Range Interpretation Comments PROTIME (BEAKER) (test code = 16.8 seconds 11.9-14.2 H 759) INR (BEAKER) (test code = 370) 1.40 <=5.90 Effective 07/03/2018: PT Reference Range ChangeNew: 11.9-14.2 Previous: 11.7- 14.7RECOMMENDED COUMADIN/WARFARIN INR THERAPY RANGESSTANDARD DOSE: 2.0-3.0 Includes: PROPHYLAXIS for venous thrombosis, systemic embolization; TREATMENT for venous thrombosis and/or pulmonary embolus.HIGH RISK: Target INR is2.5-3.5 for patients wiht mechanical heart valves.CT, [id number] 02:28:00Patient won't take oral contrastUnlisted Reason for Exam - Click Yes and Enter Reason Below->NoKAISER FOUNDATION HOSPITALName: FAVIOLA [place] : 1990 Sex: MFINAL REPORT EXAM: CT of the abdomen and pelvis, with contrast CLINICAL HISTORY: Abdominal pain. TECHNIQUE: CT of the abdomen and pelvis was performed with intravenous contrast administration. This exam was performed according to our departmental dose optimization program which includes automated exposure control, adjustment of the mA and/or kV according to patient's size and/or use of iterative reconstructive technique. COMPARISON: CT abdomen and pelvis 12/04/2019. FINDINGS: LOWER CHEST: Small bilateral pleural effusions, decreased in the interval. Trace pericardial fluid.HEPATOBILIARY: Status post cholecystectomy.PANCREAS: Parenchymal atrophy. Soft tissue rind surrounding the pancreas which may represent sequela of prior pancreatitis, similar to prior exam.SPLEEN: Status post splenectomy.ADRENALS: Within normal limits.KIDNEYS/URETERS: Within normal limits. URINARYBLADDER: Distended and thin-walled..REPRODUCTIVE ORGANS: Within normal limits. BOWEL/MESENTERY: Diffuse mural thickening of the stomach with submucosal edema, decreased in the interval. Diffuse mural thickening of the rectum, which may represent a proctitis.PERITONEUM/RETROPERITONEUM: Previously notedsmall fluid collection adjacent to the pancreatic tail has decreased in size with trace residual fluid noted. Small abdominal ascites. No free air. VESSELS: Within normal limits. LYMPH NODES: No abdominal or pelvic lymphadenopathy.SOFT TISSUES: Midline upper abdominal surgical scar.BONES: Generalized osteopenia. IMPRESSION: Diffuse mural thickening of the rectum which may represent a proctitis (infectious or inflammatory). No bowel obstruction, free air or fluid collection. Diffuse mural thickening of the stomach with submucosal edema, decreased in the interval. Soft tissue rind surrounding the pancreas which may represent granulation tissue related to prior pancreatitis, similar to prior exam however correlate clinically to exclude acute pancreatitis. Interval decrease in size of small fluid collection adjacent to the pancreatic tail which may represent a postsurgical seroma. Small abdominal ascites. Small bilateral pleural effusions, decreased. Signed: Meghan Atkins [facility] Verified Date/Time: 12/18/2019 02:28:03 CT abdomen/pelvis with IV [id number] 02:28:00Interface, External Ris In - 12/18/2019 2:31 AM CSTFINAL REPORT EXAM: CT of the abdomen and pelvis, with contrast CLINICAL HISTORY: Abdominal pain. TECHNIQUE: CT of the abdomen and pelvis was performed with intravenous contrast administration. This exam was performed accordingto our departmental dose optimization program which includes automated exposure control, adjustment of the mA and/or kV according to patient's size and/or use of iterative reconstructive technique. COMPARISON: CT abdomen and pelvis 12/04/2019. FINDINGS: LOWER CHEST: Small bilateral pleural effusions,decreased in the interval. Trace pericardial fluid.HEPATOBILIARY: Status post cholecystectomy.PANCREAS: Parenchymal atrophy. Soft tissue rind surrounding the pancreas which may represent sequela of prior pancreatitis, similar to prior exam.SPLEEN: Status post splenectomy.ADRENALS: Within normal limits. KIDNEYS/URETERS: Within normal limits. URINARY BLADDER: Distended and thin- walled..REPRODUCTIVE ORGANS: Within normal limits. BOWEL/MESENTERY: Diffuse mural thickening of the stomach with submucosal edema, decreased in the interval. Diffuse mural thickening of the rectum, which may represent a proctiti s.PERITONEUM/RETROPERITONEUM: Previously noted small fluid collection adjacent to the pancreatic tail has decreased in size with trace residual fluid noted. Small abdominal ascites. No free air. VESSELS: Within normal limits. LYMPH NODES: No abdominal or pelvic lymphadenopathy.SOFT TISSUES: Midline upper abdominal surgical scar.BONES: Generalized osteopenia. IMPRESSION: Diffuse mural thickening of the rectum which may represent a proctitis (infectious or inflammatory). No bowel obstruction, free airor fluid collection. Diffuse mural thickening of the stomach with submucosal edema, decreased in theinterval. Soft tissue rind surrounding the pancreas which may represent granulation tissue related to prior pancreatitis, similar to prior exam however correlate clinically to exclude acute pancreatitis. Interval decrease in size of small fluid collection adjacent to the pancreatic tail which may represent a postsurgical seroma. Small abdominal ascites. Small bilateral pleural effusions, decreased. Signed: Meghan Atkins MDReport Verified Date/Time: 12/18/2019 02:28:03 [facility] [id number] 15:00:00 Test Item Value Reference Range Interpretation Comments HEMOGLOBIN (BEAKER) (test code = 8.5 GM/DL 13.7-17.5 L 410) HEMATOCRIT (BEAKER) (test code = 26.0 % 40.1-51.0 L 411) Transmitter Engineer In Charge ID - [id number] METABOLIC [id number] 04:30:00 Test Item Value Reference Range Interpretation Comments [...] L (test code = 358) GLUCOSE RANDOM 66 mg/dL 70-105 L (BEAKER) (test code = 652) CALCIUM (BEAKER) 7.7 mg/dL 8.4-10.2 L (test code = 697) EGFR (BEAKER) (test 171 mL/min/1.73 ESTIM ATED GFR IS code = 1092) sq m NOT ACCURATE CREATININE CLEARANCE IN PREDICTING GLOMERULAR FILTRATION RATE . ESTIMATED GFR I S NOT APPLICABLE FOR DIALYSIS PATIEN TS. Transmitter Engineer In Charge ID - EDASIHepatic function [id number] 04:28:00 Test Item Value Reference Range Interpretation Comments Protein, Total (test code 4.5 6.0- 8.3 gm/dL L = 2885-2) Albumin (test code = 1.9 g/dL 3.5-5 L 90806-6) Total Bilirubin (test code 0.3 mg/dL 0.2-1.2 = 1975-2) Bilirubin, Direct (test 0.2 mg/dL 0.1-0.5 code = 1967-7) Alkaline Phosphatase (test 82 U/L 40-150 code = 6768-6) AST (test code = 1920-8) 12 U/L 5-34 ALT (test code = 1742-6) 7 U/L 6-55 ABAD (test code = ABAD) Transmitter Engineer In Charge ID - EDASI Lab Interpretation (test Abnormal code = 90945-8) [facility] CaliforniaHEPATIC FUNCTION [id number] 04:28:00 Test Item Value Reference Range Interpretation Comments TOTAL PROTEIN (BEAKER) (test code = 4.5 gm/dL 6.0-8.3 L 770) ALBUMIN (BEAKER) (test code = 1145) 1.9 g/dL 3.5-5.0 L BILIRUBIN TOTAL (BEAKER) (test code 0.3 mg/dL 0.2-1.2 = 377) BILIRUBIN DIRECT (BEAKER) (test 0.2 mg/dL 0.1-0.5 code = 706) ALKALINE PHOSPHATASE (BEAKER) (test 82 U/L 40-150 code = 346) AST (SGOT) (BEAKER) (test code = 12 U/L 5-34 353) ALT (SGPT) (BEAKER) (test code = 7 U/L 6-55 347) Transmitter Engineer In Charge ID - [id number] 04:21:00 Test Item Value Reference Range Interpretation Comments MAGNESIUM (BEAKER) (test code = 1.5 mg/dL 1.6-2.6 L 627) Transmitter Engineer In Charge ID - [id number] 04:21:00 Test Item Value Reference Range Interpretation Comments PHOSPHORUS (BEAKER) (test code = 4.3 mg/dL 2.3-4.7 604) Transmitter Engineer In Charge ID - EDASIPROTHROMBIN TIME/[id number] 03:59:00 Test Item Value Reference Range Interpretation Comments PROTIME (BEAKER) (test code = 17.3 seconds 11.9-14.2 H 759) INR (BEAKER) (test code = 370) 1.46 <=5.90 Effective 07/03/2018: PT Reference Range ChangeNew: 11.9-14.2 Previous: 11.7- 14.7RECOMMENDED COUMADIN/WARFARIN INR THERAPY RANGESSTANDARD DOSE: 2.0-3.0 Includes: PROPHYLAXIS for venous thrombosis, systemic embolization; TREATMENT for venous thrombosis and/or pulmonary embolus.HIGH RISK: Target INR is2.5-3.5 for patients wiht mechanical heart valves.HEMOGLOBIN AND [id number] 03:58:00 Test Item Value Reference Range Interpretation Comments HEMOGLOBIN (BEAKER) (test code = 8.5 GM/DL 13.7-17.5 L 410) HEMATOCRIT (BEAKER) (test code = 27.2 % 40.1-51.0 L 411) CBC (HEMOGRAM ONLY)2019-12-17 03:58:00 Test Item Value Reference Range Interpretation Comments WHITE BLOOD CELL COUNT (BEAKER) 13.4 K/ L 3.5-10.5 H (test code = 775) RED BLOOD CELL COUNT (BEAKER) 2.85 M/ L 4.63-6.08 L (test code = 761) HEMOGLOBIN (BEAKER) (test code = 8.5 GM/DL 13.7-17.5 L 410) HEMATOCRIT (BEAKER) (test code = 27.2 % 40.1-51.0 L 411) MEAN CORPUSCULAR VOLUME (BEAKER) 95.4 fL 79.0-92.2 H (test code = 753) MEAN CORPUSCULAR HEMOGLOBIN 29.8 pg 25.7-32.2 (BEAKER) (test code = 751) MEAN CORPUSCULAR HEMOGLOBIN CONC 31.3 GM/DL 32.3-36.5 L (BEAKER) (test code = 752) RED CELL DISTRIBUTION WIDTH 16.0 % 11.6-14.4 H (BEAKER) (test code = 412) PLATELET COUNT (BEAKER) (test 573 K/CU MM 150-450 H code = 756) MEAN PLATELET VOLUME (BEAKER) 9.7 fL 9.4-12.4 (test code = 754) NUCLEATED RED BLOOD CELLS 0 /100 WBC 0-0 (BEAKER) (test code = 413) HEMOGLOBIN AND [id number] 15:29:00 Test Item Value Reference Range Interpretation Comments HEMOGLOBIN (BEAKER) (test code = 9.0 GM/DL 13.7-17.5 L 410) HEMATOCRIT (BEAKER) (test code = 27.9 % 40.1-51.0 L 411) Transmitter Engineer In Charge ID - 6000POC-Glucose [id number] 13:02:00 Test Item Value Reference Range Interpretation Comments POC-Glucose Meter (test 86 mg/dL 70-110 : TE STED AT [facility] code = 1538) [address] [employer], [address]: Transmitter Engineer In Charge/Techni romain ID = [id number] for APOLLO FREDERICK RA Lab Interpretation (test Normal code = 05241-2) [facility] CaliforniaPOCT-GLUCOSE [id number] 13:02:00 Test Item Value Reference Range Interpretation Comments POC-GLUCOSE METER 86 mg/dL 70-110 : TESTED A T [facility] 6720 (BEAKER) (test code = [place], 1538) [address]: Transmitter Engineer In Charge/Techni romain ID = [id number] for RAYO ELLER E HEPATIC FUNCTION [id number] 11:23:00 Test Item Value Reference Range Interpretation Comments TOTAL PROTEIN (BEAKER) (test code = 4.4 gm/dL 6.0-8.3 L 770) ALBUMIN (BEAKER) (test code = 1145) 1.8 g/dL 3.5-5.0 L BILIRUBIN TOTAL (BEAKER) (test code 0.3 mg/dL 0.2-1.2 = 377) BILIRUBIN DIRECT (BEAKER) (test 0.2 mg/dL 0.1-0.5 code = 706) ALKALINE PHOSPHATASE (BEAKER) (test 84 U/L 40-150 code = 346) AST (SGOT) (BEAKER) (test code = 29 U/L 5-34 353) ALT (SGPT) (BEAKER) (test code = 9 U/L 6-55 347) Transmitter Engineer In Charge ID - THUAN FOperator ID - THUAN [id number] 10:49:00 Test Item Value Reference Range Interpretation Comments Lipase (test code = 16 U/L 8-78 3040-3) ABAD (test code = ABAD) Transmitter Engineer In Charge ID Binu THUAN Leon Lab Interpretation (test Normal code = 77100-9) [facility] CaliforniaLIPASE2020-11-10 10:49:00 Test Item Value Reference Range Interpretation Comments LIPASE (BEAKER) (test code = 749) 16 U/L 8-78 Transmitter Engineer In Charge ID - THUAN FLactic acid, [id number] 10:31:00 Test Item Value Reference Range Interpretation Comments Lactate, Venous (test code 0.55 mmol/L 0.5-2.2 = 2872) ABAD (test code = ABAD) Transmitter Engineer In Charge ID Binu THUAN Leon Lab Interpretation (test Normal code = 26989-2) [facility] CaliforniaLACTIC ACID, [id number] 10:31:00 Test Item Value Reference Range Interpretation Comments LACTATE BLOOD VENOUS (2) (BEAKER) 0.55 mmol/L 0.50-2.20 (test code = 2872) Transmitter Engineer In Charge ID - THUAN FHEMOGLOBIN AND [id number] 09:49:00 Test Item Value Reference Range Interpretation Comments HEMOGLOBIN (BEAKER) (test code = 9.5 GM/DL 13.7-17.5 L 410) HEMATOCRIT (BEAKER) (test code = 30.0 % 40.1-51.0 L 411) Transmitter Engineer In Charge ID - [id number] METABOLIC [id number] 05:52:00 Test Item Value Reference Range Interpretation Comments SODIUM (BEAKER) 141 meq/L 136-145 (test code = 381) POTASSIUM (BEAKER) 3.8 meq/L 3.5-5.1 (test code = 379) CHLORIDE (BEAKER) 110 meq/L 98-107 H (test code = 382) CO2 (BEAKER) (test 19 meq/L 22-29 L code = 355) BLOOD UREA NITROGEN 7 mg/dL 7-21 (BEAKER) (test code = 354) CREATININE (BEAKER) 0.53 mg/dL 0.57-1.25 L (test code = 358) GLUCOSE RANDOM 55 mg/dL 70-105 L (BEAKER) (test code = 652) CALCIUM (BEAKER) 7.6 mg/dL 8.4-10.2 L (test code = 697) EGFR (BEAKER) (test 183 mL/min/1.73 ESTIM ATED GFR IS code = 1092) sq m NOT ACCURATE CREATININE CLEARANCE IN PREDICTING GLOMERULAR FILTRATION RATE . ESTIMATED GFR I S NOT APPLICABLE FOR DIALYSIS PATIEN TS. Transmitter Engineer In Charge ID - [id number] 05:50:00 Test Item Value Reference Range Interpretation Comments MAGNESIUM (BEAKER) (test code = 1.7 mg/dL 1.6-2.6 627) Transmitter Engineer In Charge ID - [id number] 05:50:00 Test Item Value Reference Range Interpretation Comments PHOSPHORUS (BEAKER) (test code = 4.0 mg/dL 2.3-4.7 604) Transmitter Engineer In Charge ID - ALFREDOASIPROTHROMBIN [id number] 05:18:00 Test Item Value Reference Range Interpretation Comments PROTIME (BEAKER) (test code = 16.0 seconds 11.9-14.2 H 759) INR (BEAKER) (test code = 370) 1.31 <=5.90 Effective 07/03/2018: PT Reference Range ChangeNew: 11.9-14.2 Previous: 11.7- 14.7RECOMMENDED COUMADIN/WARFARIN INR THERAPY RANGESSTANDARD DOSE: 2.0-3.0 Includes: PROPHYLAXIS for venous thrombosis, systemic embolization; TREATMENT for venous thrombosis and/or pulmonary embolus.HIGH RISK: Target INR is2.5-3.5 for patients wiht mechanical heart valves.CBC (HEMOGRAM ONLY)2019-12-16 05:03:00 Test Item Value Reference Range Interpretation Comments WHITE BLOOD CELL COUNT (BEAKER) 11.4 K/ L 3.5-10.5 H (test code = 775) RED BLOOD CELL COUNT (BEAKER) 2.68 M/ L 4.63-6.08 L (test code = 761) HEMOGLOBIN (BEAKER) (test code = 8.2 GM/DL 13.7-17.5 L 410) HEMATOCRIT (BEAKER) (test code = 25.2 % 40.1-51.0 L 411) MEAN CORPUSCULAR VOLUME (BEAKER) 94.0 fL 79.0-92.2 H (test code = 753) MEAN CORPUSCULAR HEMOGLOBIN 30.6 pg 25.7-32.2 (BEAKER) (test code = 751) MEAN CORPUSCULAR HEMOGLOBIN CONC 32.5 GM/DL 32.3-36.5 (BEAKER) (test code = 752) RED CELL DISTRIBUTION WIDTH 15.9 % 11.6-14.4 H (BEAKER) (test code = 412) PLATELET COUNT (BEAKER) (test 518 K/CU MM 150-450 H code = 756) MEAN PLATELET VOLUME (BEAKER) 10.1 fL 9.4-12.4 (test code = 754) NUCLEATED RED BLOOD CELLS 0 /100 WBC 0-0 (BEAKER) (test code = 413) HEMOGLOBIN AND [id number] 21:27:00 Test Item Value Reference Range Interpretation Comments HEMOGLOBIN (BEAKER) (test code = 10.5 GM/DL 13.7-17.5 L 410) HEMATOCRIT (BEAKER) (test code = 32.4 % 40.1-51.0 L 411) Transmitter Engineer In Charge ID - 6000HEMOGLOBIN AND [id number] 17:10:00 Test Item Value Reference Range Interpretation Comments HEMOGLOBIN (BEAKER) (test code = 8.8 GM/DL 13.7-17.5 L 410) HEMATOCRIT (BEAKER) (test code = 26.8 % 40.1-51.0 L 411) Transmitter Engineer In Charge ID - 6000Oxygen saturation, [id number] 13:56:00 Test Item Value Reference Range Interpretation Comments O2 Saturation (Measured) (test code = 87.3 % 73878-8) [facility] CaliforniaOXYGEN SATURATION, [id number] 13:56:00 Test Item Value Reference Range Interpretation Comments O2 SATURATION (MEASURED) (BEAKER) 87.3 % (test code = 1455) OXYGEN SATURATION, [id number] 13:34:00 Test Item Value Reference Range Interpretation Comments O2 SATURATION (MEASURED) (BEAKER) 93.0 % (test code = 1455) HEMOGLOBIN AND [id number] 11:00:00 Test Item Value Reference Range Interpretation Comments HEMOGLOBIN (BEAKER) (test code = 9.9 GM/DL 13.7-17.5 L 410) HEMATOCRIT (BEAKER) (test code = 31.5 % 40.1-51.0 L 411) Transmitter Engineer In Charge ID - [id number], EMBOLIZATION, EXTENSIVE - [id number] 10:36:00 Reason for exam:->GDA embolization for duodenol bulb bleedAnesthesia:->[facility] [place] [facility] 1990 Sex: MFINAL REPORT Procedure: Transarterial embolization of gastroduodenal artery. 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 Empiric GDA embolization was requested. Tripoler: Rayshawn Motley M.D. Gravity Meter Operator: Jef Rosen Modality: Sonography and fluoroscopy. DOSE REDUCTION: The examination was performed according to departmental dos e-optimization program. Fluoro time: 11.7 minutes Radiation dose: 675 mGy air Kerma. Number of images: 48 Sedation: Provided by the ICU team. Anesthesia: Lidocaine local infiltration. Medicines: Not applicable Contrast medium: Isovue 300, 150 cc. Estimated blood loss: < 5 cc. Technique: A discussion of the risks, benefits, and alternatives was carried out with the patient or next of kin. A written informedconsent was obtained. A universal timeout was performed prior to starting the procedure. The procedure room personnel used personal protective equipment. The operators used sterile gowns and gloves. The patient was laid supine on the procedure table. The common femoral artery access sites were prepped with chlorhexidine gluconate and draped in the maximal sterile fashion. The right common femoral artery was localized using anatomic and ultrasonographic landmarks. The artery is patent. Pertinent ultrasound images were stored for documentation in the PACS. Using aseptic precautions, real-time ultrasonographic guidance, after local anesthesia and dermatotomy, the artery was accessed with a micropuncture device. Eventually a guide wire was placed using standard exchanges. Over the wire a 5 Greek short vascular sheath was placed. The sheath was connected to a heparinized saline drip. Over the wire, a 5 Greek reverse curve catheter was placed. This was followed by selective catheterization of thefollowing arteries: Celiac artery This was followed by superselective catheterization of the following arteries: Common hepatic artery and gastroduodenal artery The equipment used for superselective catheterization was Pro great catheter, direxion catheter, fathom wire. At each catheterization and superselective catheterization, following test injection, a digital subtraction angiography run was performed. The digital subtraction angiography run was repeated in different fluoroscopic projections as and if needed. Only hand injection was performed in the gastroduodenal artery. Initially the gastroduodenal artery appear to be truncated stump. Likely because of the previous GI intervention consistingof epinephrine injection and cauterization. However later on it showed blowout with active extravasation in the duodenum. This was followed by superselective embolization of the gastroduodenal artery with cyanoacrylate glue in a 1-3 dilution A post embolization run was performed from the guide catheter in the celiac artery. It showed occlusion of the gastroduodenal artery flushed with its origin. Theaccess site was closed using Angio-Seal. The patient was then transferred to the post procedure areafor recovery. The patient was discharged from the department in stable condition.Complications: None immediate. Findings:Unremarkable celiac artery. Unremarkable proximal branches of the celiac artery. A stump of the gastroduodenal artery is seen. 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 Selective angiography of the common hepatic artery shows a GDA stump with no active bleeding at this time, unremarkable hepatic artery and right gastric artery. The later runs show blowout of the GDA with extravasation of the contrast medium in the same location as the endoscopic clip. This was embolized with glue successfully. There is complete occlusion of the GDA to the ostium of the GDA from thecommon hepatic artery. There is no nontarget embolization. Impression: Successful catheterization and angiography of the celiac artery and the gastroduodenal artery with successful embolization of the GDA using glue as described above. Thank you for the opportunity to assist in the care of your patient. Signed: Rayshawn Motley MDReport Verified Date/Time: 12/15/2019 10:36:44 Reading Location: [place] [address] Angio Body Reading Room IR Embolization [id number] 10:36:00Interface, External Ris In - 12/15/2019 10:38 AM CSTFINAL REPORT Procedure: Transarterial embolization of gastroduodenal artery. 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 Empiric GDA embolization was requested. Tripoler: Rayshawn Motley M.D. Gravity Meter Operator: Kelli.Jef Modality: Sonography and fluoroscopy. DOSE REDUCTION: The examination was performed according to departmental dose-optimization program. Fluoro time: 11.7 minutes Radiation dose: 675 mGy air Kerma. Number of images: 48 Sedation: Provided by the ICU team. Anesthesia: Lidocaine local infiltration. Medicines: Not applicable Contrast medium: Isovue 300, 150 cc. Estimated blood loss: <5 cc. Technique: A discussion of the risks, benefits, and alternatives was carried out withthe patient or next of kin. A written informed consent was obtained. A universal timeout was perfor med prior to starting the procedure. The procedure room personnel used personal protective equipment. The operators used sterile gowns and gloves. The patient was laid supine on the procedure table. The common femoral artery access sites were prepped with chlorhexidine gluconate and draped in the maximal sterile fashion. The right common femoral artery was localized using anatomic and ultrasonographic landmarks. The artery is patent. Pertinent ultrasound images were stored for documentation in the PACS. Using aseptic precautions, real-time ultrasonographic guidance, after local anesthesia and dermatotomy, the artery was accessed with a micropuncture device. Eventually a guide wire was placed usingstandard exchanges. Over the wire a 5 Greek short vascular sheath was placed. The sheath was connected to a heparinized saline drip. Over the wire, a 5 Greek reverse curve catheter was placed. This was followed by selective catheterization of the following arteries: Celiac artery This was followed by superselective catheterization of the following arteries: Common hepatic artery and gastroduodenal artery The equipment used for superselective catheterization was Pro great catheter, direxion catheter, fathom wire. At each catheterization and superselective catheterization, following test injection,a digital subtraction angiography run was performed. The digital subtraction angiography run was repeated in different fluoroscopic projections as and if needed. Only hand injection was performed in the gastroduodenal artery. Initially the gastroduodenal artery appear to be truncated stump. Likely because of the previous GI intervention consisting of epinephrine injection and cauterization. However later on it showed blowout with active extravasation in the duodenum. This was followed by superselective embolization of the gastroduodenal artery with cyanoacrylate glue in a 1-3 dilution A post embolization run was performed from the guide catheter in the celiac artery. It showed occlusion of the sharmin roduodenal artery flushed with its origin. The access site was closed using Angio-Seal. The patient was then transferred to the post procedure area for recovery. The patient was discharged from the department in stable condition. Complications: None immediate. Findings:Unremarkable celiac artery. Unremarkable proximal branches of the celiac artery. 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 Selective angiography of the common hepatic artery shows a GDA stump with no active bleeding at this time, unremarkable hepatic artery and right gastric artery. The later runs show blowout of the GDA with extravasation of the contrast medium in the same location as the endoscopic clip. This was embolized with glue successfully. There is complete occlusion of the GDA to the ostium of the GDA from the common hepatic artery. There is no nontarget embolization. Impression: Successful catheterization and angiography of the celiac artery and the gastroduodenal artery with successful embolization of the GDA using glue as described above. Thank you for the opportunity to assist in the care of your patient. Signed: Rayshawn Motley MDReport Verified Date/Time: 12/15/2019 10:36:44 Reading Location: [place] [address] Angio Body Reading Room 10:36 [facility] 04:46:00 Test Item Value Reference Range Interpretation Comments MAGNESIUM (BEAKER) (test code = 1.7 mg/dL 1.6-2.6 627) Transmitter Engineer In Charge ID - SOTERO [id number] 04:46:00 Test Item Value Reference Range Interpretation Comments PHOSPHORUS (BEAKER) (test code = 2.9 mg/dL 2.3-4.7 604) Transmitter Engineer In Charge ID - SOTERO MBASIC METABOLIC [id number] 04:46:00 Test Item Value Reference Range Interpretation Comments SODIUM (BEAKER) 141 meq/L 136-145 (test code = 381) POTASSIUM (BEAKER) 3.4 meq/L 3.5-5.1 L (test code = 379) CHLORIDE (BEAKER) 112 meq/L 98-107 H (test code = 382) [...] S NOT APPLICABLE FOR DIALYSIS PATIEN TS. Transmitter Engineer In Charge ID - SOTERO MHEPATIC FUNCTION [id number] 04:46:00 Test Item Value Reference Range Interpretation Comments TOTAL PROTEIN (BEAKER) (test code = 3.9 gm/dL 6.0-8.3 L 770) ALBUMIN (BEAKER) (test code = 1145) 1.7 g/dL 3.5-5.0 L BILIRUBIN TOTAL (BEAKER) (test code 0.4 mg/dL 0.2-1.2 = 377) BILIRUBIN DIRECT (BEAKER) (test 0.2 mg/dL 0.1-0.5 code = 706) ALKALINE PHOSPHATASE (BEAKER) (test 81 U/L 40-150 code = 346) AST (SGOT) (BEAKER) (test code = 20 U/L 5-34 353) ALT (SGPT) (BEAKER) (test code = 9 U/L 6-55 347) Transmitter Engineer In Charge ID - SOTERO MPROTHROMBIN [id number] 04:36:00 Test Item Value Reference Range Interpretation Comments PROTIME (BEAKER) (test code = 16.8 seconds 11.9-14.2 H 759) INR (BEAKER) (test code = 370) 1.40 <=5.90 Effective 07/03/2018: PT Reference Range ChangeNew: 11.9-14.2 Previous: 11.7- 14.7RECOMMENDED COUMADIN/WARFARIN INR THERAPY RANGESSTANDARD DOSE: 2.0-3.0 Includes: PROPHYLAXIS for venous thrombosis, systemic embolization; TREATMENT for venous thrombosis and/or pulmonary embolus.HIGH RISK: Target INR is2.5-3.5 for patients wiht mechanical heart valves.CBC (HEMOGRAM ONLY)2019-12-15 04:19:00 Test Item Value Reference Range Interpretation Comments WHITE BLOOD CELL COUNT 12.1 K/ L 3.5-10.5 H (BEAKER) (test code = 775) RED BLOOD CELL COUNT 2.61 M/ L 4.63-6.08 L (BEAKER) (test code = 761) HEMOGLOBIN (BEAKER) 7.8 GM/DL 13.7-17.5 L (test code = 410) HEMATOCRIT (BEAKER) 24.2 % 40.1-51.0 L (test code = 411) MEAN CORPUSCULAR 92.7 fL 79.0-92.2 H Discordant MCV VOLUME (BEAKER) (test result s compared to code = 753) previous result s; clinical correl ation required. MEAN CORPUSCULAR 29.9 pg 25.7-32.2 HEMOGLOBIN (BEAKER) (test code = 751) MEAN CORPUSCULAR 32.2 GM/DL 32.3-36.5 L HEMOGLOBIN CONC (BEAKER) (test code = 752) RED CELL DISTRIBUTION 15.6 % 11.6-14.4 H WIDTH (BEAKER) (test code = 412) PLATELET COUNT 490 K/CU MM 150-450 H (BEAKER) (test code = 756) MEAN PLATELET VOLUME 9.7 fL 9.4-12.4 (BEAKER) (test code = 754) NUCLEATED RED BLOOD 0 /100 WBC 0-0 CELLS (BEAKER) (test code = 413) Prepare Leuko-Red [id number] 23:54:00 Test Item Value Reference Range Interpretation Comments CROSSMATCH (test code = 2264) COMPATIBLE Unit ABO (test code = A Pos 5992549) UNIT NUMBER (test code = [id number] 934-0) Status (test code = 3503572) TX_TIMEINCHART Blood Bank Product (test code RED BLOOD CELLS = 2263) PRODUCT CODE (test code = R6549B37 933-2) [facility] CaliforniaHEMOGLOBIN AND [id number] 22:11:00 Test Item Value Reference Range Interpretation Comments HEMOGLOBIN (BEAKER) (test code = 8.2 GM/DL 13.7-17.5 L 410) HEMATOCRIT (BEAKER) (test code = 25.0 % 40.1-51.0 L 411) Transmitter Engineer In Charge ID - 6000H. pylori antigen, [id number] 16:47:00 Test Item Value Reference Range Interpretation Comments H. pylori Not detected Not detected Antimicrobial s, proton Antigen (test pump inhibitor s, and code = bismuth 6218023) preparationsinh ibit H. pylori and atilio stion up to two weeks pr ior to testing may cau se false negative result s. If clinically jesus cated the test should be repeated on a new specim en obtained two we eks after discontinuing t reatment. ABAD (test Performing Lab code = ABAD) *SPL [facility], [address] [place] [id number] Anjelica Gupta MD, PhD [facility] CenterLACTIC ACID, [id number] 13:05:00 Test Item Value Reference Range Interpretation Comments LACTATE BLOOD VENOUS 1.41 mmol/L 0.50-2.20 Specime n slightly (2) (BEAKER) (test hemolyzed code = 2872) Transmitter Engineer In Charge ID - CARLOS CHEMOGLOBIN AND [id number] 11:51:00 Test Item Value Reference Range Interpretation Comments HEMOGLOBIN (BEAKER) (test code = 11.7 GM/DL 13.7-17.5 L 410) HEMATOCRIT (BEAKER) (test code = 35.4 % 40.1-51.0 L 411) Transmitter Engineer In Charge ID - 6000SARS-CoV2/RT-PCR (Asymptomatic ONLY)2019-12-14 07:38:00 Test Item Value Reference Range Interpretation Comments SARS-COV2/RT-PCR Negative Not Detected, (test code = Negative, See 72660-2) external report for linked test SARS-COV-2 [facility] PERFORMING LAB (test code = 79586-5) ABAD (test code = Negative result for [...] the Act. Testing was performed using the Iizuu SARS-CoV-2 assay. Fact Sheet for Healthcare Providers:https://www.[employer]/vivien/RT_SA UT-DiA-9_BOQ_Coib_Domcg_ 51-485389.pdf Fact Sheet for Healthcare Patients:https://www.ABB/vivien/RT_SAR C-CcV-9_Rbyvzwf_Vxgd_Wft et_EN_51-933958Z7.pdf Performing Laboratory:[place] [address] [address]OV2/RT-PCR ([facility])2019-12-14 07:38:00 Test Item Value Reference Range Interpretation Comments SARS-COV2/RT-PCR (test Negative Not Detected, Negative, code = 0568511) See external report for linked test SARS-COV-2 PERFORMING LAB [facility] (test code = 0636956) Negative result for this test determines that [...] of detection for this assay is 100 copies/mL.This SARS CoV-2 test is a real-time [...] is revoked under Section 564(g) of the Act.Testing was performed using the N[employer]era SARS-CoV-2 assay.Fact Sheet for Healthcare Providers:https://www.[employer].najera/vivien/ VY_STNY-IdM-7_KUH_Caqk_Btmvi_37-557013.pdfFact Sheet for Healthcare Patients:https://www.[employer].Knozen micaela/vivien/AX_DOEA-LfY-9_Iygbndv_Crba_Ohrmu_UQ_56-756629Q6.pdfPerforming Laboratory:[address] [place] [address] BASIC METABOLIC [id number] 05:39:00 Test Item Value Reference Range Interpretation Comments SODIUM (BEAKER) 140 meq/L 136-145 (test code = 381) POTASSIUM (BEAKER) 3.7 meq/L 3.5-5.1 (test code = 379) CHLORIDE (BEAKER) 110 meq/L 98-107 H (test code = 382) CO2 (BEAKER) (test 22 meq/L 22-29 code = 355) BLOOD UREA NITROGEN 12 mg/dL 7-21 (BEAKER) (test code = 354) CREATININE (BEAKER) 0.63 mg/dL 0.57-1.25 (test code = 358) GLUCOSE RANDOM 119 mg/dL 70-105 H (BEAKER) (test code = 652) CALCIUM (BEAKER) 7.5 mg/dL 8.4-10.2 L (test code = 697) EGFR (BEAKER) (test 150 mL/min/1.73 ESTIM ATED GFR IS code = 1092) sq m NOT ACCURATE CREATININE CLEARANCE IN PREDICTING GLOMERULAR FILTRATION RATE . ESTIMATED GFR I S NOT APPLICABLE FOR DIALYSIS PATIEN TS. Transmitter Engineer In Charge ID - SOTERO [id number] 05:29:00 Test Item Value Reference Range Interpretation Comments PTT (test code = 97010-3) 26.0 22.5- 36.0 seconds Lab Interpretation (test code = Normal 69604-8) [facility] CaliforniaAPTT2020-11-08 05:29:00 Test Item Value Reference Range Interpretation Comments PARTIAL THROMBOPLASTIN TIME 26.0 seconds 22.5-36.0 (BEAKER) (test code = 760) CBC (HEMOGRAM ONLY)2019-12-14 05:13:00 Test Item Value Reference Range Interpretation Comments WHITE BLOOD CELL COUNT 12.7 K/ L 3.5-10.5 H (BEAKER) (test code = 775) RED BLOOD CELL COUNT 3.17 M/ L 4.63-6.08 L (BEAKER) (test code = 761) HEMOGLOBIN (BEAKER) 9.7 GM/DL 13.7-17.5 L (test code = 410) HEMATOCRIT (BEAKER) 27.7 % 40.1-51.0 L (test code = 411) MEAN CORPUSCULAR 87.4 fL 79.0-92.2 DISCORDANT MCV VOLUME (BEAKER) (test RESULT COMPARED TO code = 753) PREVIOUS RESULT ; CLINICAL CORREL ATION REQUIRED. MEAN CORPUSCULAR 30.6 pg 25.7-32.2 HEMOGLOBIN (BEAKER) (test code = 751) MEAN CORPUSCULAR 35.0 GM/DL 32.3-36.5 HEMOGLOBIN CONC (BEAKER) (test code = 752) RED CELL DISTRIBUTION 14.7 % 11.6-14.4 H WIDTH (BEAKER) (test code = 412) PLATELET COUNT 523 K/CU MM 150-450 H (BEAKER) (test code = 756) MEAN PLATELET VOLUME 9.6 fL 9.4-12.4 (BEAKER) (test code = 754) NUCLEATED RED BLOOD 0 /100 WBC 0-0 CELLS (BEAKER) (test code = 413) [id number] 05:11:00 Test Item Value Reference Range Interpretation Comments MAGNESIUM (BEAKER) (test code = 1.5 mg/dL 1.6-2.6 L 627) Transmitter Engineer In Charge ID - SOTERO [id number] 05:11:00 Test Item Value Reference Range Interpretation Comments PHOSPHORUS (BEAKER) (test code = 2.9 mg/dL 2.3-4.7 604) Transmitter Engineer In Charge ID - SOTERO MPROTHROMBIN [id number] 05:04:00 Test Item Value Reference Range Interpretation Comments PROTIME (BEAKER) (test code = 16.3 seconds 11.9-14.2 H 759) INR (BEAKER) (test code = 370) 1.35 <=5.90 Effective 07/03/2018: PT Reference Range ChangeNew: 11.9-14.2 Previous: 11.7- 14.7RECOMMENDED COUMADIN/WARFARIN INR THERAPY RANGESSTANDARD DOSE: 2.0-3.0 Includes: PROPHYLAXIS for venous thrombosis, systemic embolization; TREATMENT for venous thrombosis and/or pulmonary embolus.HIGH RISK: Target INR is2.5-3.5 for patients wiht mechanical heart valves.HEMOGLOBIN AND [id number] 01:10:00 Test Item Value Reference Range Interpretation Comments HEMOGLOBIN (BEAKER) (test code = 9.5 GM/DL 13.7-17.5 L 410) HEMATOCRIT (BEAKER) (test code = 28.2 % 40.1-51.0 L 411) Transmitter Engineer In Charge ID - 6000Blood gas, [id number] 01:08:00 Test Item Value Reference Range Interpretation Comments pH, Arterial (test code = 2744-1) 7.56 7.35-7.45 H pCO2, Arterial (test code = 27 35- 45 mm Hg L 2018-09) pO2, Arterial (test code = 2703-7) 212 80- 90 mm Hg H O2 Sat, Arterial (test code = 99.6 % 96-97 H 2707-6) HCO3, Arterial (test code = 23 mmol/L 21-29 1959-) Base Excess, Arterial (test code = 1.9 mmol/L -2-3 1925-7) Patient Temperature (test code = 37.5 8310-5) FIO2 (test code = 1819) 50 Lab Interpretation (test code = Abnormal 01936-5) [facility] CaliforniaBLOOD GAS, [id number] 01:08:00 Test Item Value Reference Range Interpretation Comments PH ARTERIAL (BEAKER) (test code = 7.56 7.35-7.45 H 383) PCO2 ARTERIAL (BEAKER) (test code 27 mm Hg 35-45 L = 384) PO2 ARTERIAL (BEAKER) (test code = 212 mm Hg 80-90 H 385) O2 SATURATION ARTERIAL (BEAKER) 99.6 % 96.0-97.0 H (test code = 386) HCO3 ARTERIAL (BEAKER) (test code 23 mmol/L 21-29 = 388) BASE EXCESS ARTERIAL (BEAKER) 1.9 mmol/L -2.0-3.0 (test code = 387) PATIENT TEMPERATURE (BEAKER) (test 37.5 code = 1818) FIO2 (BEAKER) (test code = 1819) 50.0 [id number] 22:08:00 Test Item Value Reference Range Interpretation Comments Fibrinogen (test code = 3255-7) 484 mg/dl 225-434 H Lab Interpretation (test code = Abnormal 82312-0) [facility] CaliforniaFIBRINOGEN2020-11-07 22:08:00 Test Item Value Reference Range Interpretation Comments FIBRINOGEN LEVEL (BEAKER) (test 484 mg/dl 225-434 H code = 658) [id number] 17:54:00 Test Item Value Reference Range Interpretation Comments Protime (test code = 16.8 11.9- 14.2 H 5902-2) seconds INR (test code = 1.40 <=5.90 6301-6) PTT (test code = 35.9 22.5- 36.0 49321-9) seconds BAAD (test code = ABAD) Effective 07/03/2018: PT Reference Range ChangeNew: 11.9-14.2 Previous: 11.7-14.7 RECOMMENDED COUMADIN/WARFARIN INR THERAPY RANGESSTANDARD DOSE: 2.0-3.0 Includes: PROPHYLAXIS for venous thrombosis, systemic embolization; TREATMENT for venous thrombosis and/or pulmonary embolus.HIGH RISK: Target INR is 2.5-3.5 for patients wiht mechanical heart valves. Lab Interpretation Abnormal (test code = 96858-5) [facility] [facility] Northern CaliforniaPT/[id number] 17:54:00 Test Item Value Reference Range Interpretation Comments PROTIME (BEAKER) (test code = 16.8 seconds 11.9-14.2 H 759) INR (BEAKER) (test code = 370) 1.40 <=5.90 PARTIAL THROMBOPLASTIN TIME 35.9 seconds 22.5-36.0 (BEAKER) (test code = 760) Effective 07/03/2018: PT Reference Range ChangeNew: 11.9-14.2 Previous: 11.7- 14.7RECOMMENDED COUMADIN/WARFARIN INR THERAPY RANGESSTANDARD DOSE: 2.0-3.0 Includes: PROPHYLAXIS for venous thrombosis, systemic embolization; TREATMENT for venous thrombosis and/or pulmonary embolus.HIGH RISK: Target INR is2.5-3.5 for patients wiht mechanical heart valves.PROTHROMBIN TIME/[id number] 17:53:00 Test Item Value Reference Range Interpretation Comments PROTIME (BEAKER) (test code = 16.8 seconds 11.9-14.2 H 759) INR (BEAKER) (test code = 370) 1.40 <=5.90 Effective 07/03/2018: PT Reference Range ChangeNew: 11.9-14.2 Previous: 11.7- 14.7RECOMMENDED COUMADIN/WARFARIN INR THERAPY RANGESSTANDARD DOSE: 2.0-3.0 Includes: PROPHYLAXIS for venous thrombosis, systemic embolization; TREATMENT for venous thrombosis and/or pulmonary embolus.HIGH RISK: Target INR is2.5-3.5 for patients wiht mechanical heart valves.Type and screen, [id number] 17:10:00 Test Item Value Reference Range Interpretation Comments ABO/RH AUTOMATED (BEAKER) (test A POSITIVE code = 2260) Ab Scrn (test code = 890-4) NEGATIVE [facility] CaliforniaComprehensive metabolic [id number] 16:58:00 Test Item Value Reference Range Interpretation Comments Protein, Total (test 4.3 6.0- 8.3 gm/dL L Speci men slightly code = 2885-2) hemolyzed Albumin (test code = 1.8 g/dL 3.5-5 L Specime n slightly 43670-5) hemolyzed Alkaline Phosphatase 90 U/L 40-150 (test code = 6768-6) Total Bilirubin (test 0.6 mg/dL 0.2-1.2 Specim en slightly code = 1974-2) hemolyzed Sodium (test code = 140 meq/L 589-985 1832-2) Potassium (test code = 4.3 meq/L 3.5-5.1 Speci men slightly 2823-3) hemolyzed Chloride (test code = 109 meq/L 98-107 H 2075-0) CO2 (test code = 25 meq/L 22-29 2028-9) BUN (test code = 13 mg/dL 7-21 3094-0) Creatinine (test code 0.54 mg/dL 0.57-1.25 L Specim en slightly = 2160-0) hemolyzed Glucose (test code = 94 mg/dL 70-105 2345-7) Calcium (test code = 7.3 mg/dL 8.4-10.2 L 10229-0) AST (test code = 19 U/L 5-34 Specimen sl ightly 1920-8) hemolyzed ALT (test code = 12 U/L 6-55 Specimen sl ightly 1742-6) hemolyzed EGFR (test code = 179 mL/min/1.73 [place] [address]-1) NOT ACCURATE CREATININE CLEARANCE IN PREDICTING GLOMERULAR FILTRATION RATE . ESTIMATED GFR I S NOT APPLICABLE FOR DIALYSIS PATIENTS. ABAD (test code = ABAD) Transmitter Engineer In Charge ID - CARLOS C Lab Interpretation Abnormal (test code = 50024-6) [facility] CaliforniaCOMPREHENSIVE METABOLIC [id number] 16:58:00 Test Item Value Reference Range Interpretation Comments TOTAL PROTEIN 4.3 gm/dL 6.0-8.3 L Specimen sligh tly (BEAKER) (test code = hemoly zed 770) ALBUMIN (BEAKER) 1.8 g/dL 3.5-5.0 L Specimen sl ightly (test code = 1145) hemolyzed ALKALINE PHOSPHATASE 90 U/L 40-150 (BEAKER) (test code = 346) BILIRUBIN TOTAL 0.6 mg/dL 0.2-1.2 Specimen sli ghtly (BEAKER) (test code = hemoly zed 377) SODIUM (BEAKER) (test 140 meq/L 136-145 code = 381) POTASSIUM (BEAKER) 4.3 meq/L 3.5-5.1 Specimen slightly (test code = 379) hemolyzed CHLORIDE (BEAKER) 109 meq/L 98-107 H (test code = 382) CO2 (BEAKER) (test 25 meq/L 22-29 code = 355) BLOOD UREA NITROGEN 13 mg/dL 7-21 (BEAKER) (test code = 354) CREATININE (BEAKER) 0.54 mg/dL 0.57-1.25 L Specimen slightly (test code = 358) hemolyzed GLUCOSE RANDOM 94 mg/dL 70-105 (BEAKER) (test code = 652) CALCIUM (BEAKER) 7.3 mg/dL 8.4-10.2 L (test code = 697) AST (SGOT) (BEAKER) 19 U/L 5-34 Specimen slightly (test code = 353) hemolyzed ALT (SGPT) (BEAKER) 12 U/L 6-55 Specimen slightly (test code = 347) hemolyzed EGFR (BEAKER) (test 179 ESTIMATE D GFR IS code = 1092) mL/min/1.73 sq NOT ACCURA TE m CREATININE CLEARANCE IN PREDICTING GLOMERULAR FILTRATION RATE . ESTIMATED GFR I S NOT APPLICABLE FOR DIALYSIS PATIEN TS. Transmitter Engineer In Charge ID - CARLOS [id number] 16:57:00 Test Item Value Reference Range Interpretation Comments MAGNESIUM (BEAKER) 1.5 mg/dL 1.6-2.6 L Specimen slightly (test code = 627) hemolyzed Transmitter Engineer In Charge ID - CARLOS CCBC (HEMOGRAM ONLY)2019-12-13 16:41:00 Test Item Value Reference Range Interpretation Comments WHITE BLOOD CELL COUNT (BEAKER) 10.1 K/ L 3.5-10.5 (test code = 775) RED BLOOD CELL COUNT (BEAKER) 2.39 M/ L 4.63-6.08 L (test code = 761) HEMOGLOBIN (BEAKER) (test code = 7.5 GM/DL 13.7-17.5 L 410) HEMATOCRIT (BEAKER) (test code = 22.5 % 40.1-51.0 L 411) MEAN CORPUSCULAR VOLUME (BEAKER) 94.1 fL 79.0-92.2 H (test code = 753) MEAN CORPUSCULAR HEMOGLOBIN 31.4 pg 25.7-32.2 (BEAKER) (test code = 751) MEAN CORPUSCULAR HEMOGLOBIN CONC 33.3 GM/DL 32.3-36.5 (BEAKER) (test code = 752) RED CELL DISTRIBUTION WIDTH 14.8 % 11.6-14.4 H (BEAKER) (test code = 412) PLATELET COUNT (BEAKER) (test 588 K/CU MM 150-450 H code = 756) MEAN PLATELET VOLUME (BEAKER) 9.7 fL 9.4-12.4 (test code = 754) NUCLEATED RED BLOOD CELLS 0 /100 WBC 0-0 (BEAKER) (test code = 413) [id number] 00:00:00Ordered by an unspecified provider.[facility] CaliforniaGlucose Pleural [id number] 16:43:00 Test Item Value Reference Range Interpretation Comments Glucose, 114 mg/dL Reference rang e Pleural Fluid approximates t hat (test code = found in serum. 2346-5) ABAD (test code Performing Lab = ABAD) [facility] [address] [place] [address] Parker Herman MD, PhD, VENKATA [facility] Northern CaliforniaLactate Dehydrogenase (LD), Pleural [id number] 16:42:00 Test Item Value Reference Range Interpretation Comments Lactate 36 U/L See Note: Reference Dehydrogenase (LD), Range:TR ANSUDATE Pleural Fluid (test : <113E XUDATE: code = 85611-1) >113SAMPL E SLIGHTLY LIPEMIC. ABAD (test code = Performing Lab ABAD) EZ [facility] [place] [address] [place] [address] Parker Herman MD, PhD, VENKATA [facility] Northern CaliforniaBody fluid culture + gram [id number] 13:02:00 Test Item Value Reference Range Interpretation Comments Result (test code = 6463-4) No growth Gram Stain Result (test No organisms seen code = 1123) ABAD (test code = ABAD) [facility] CaliforniaBODY FLUID CULTURE + GRAM [id number] 13:02:00 Test Item Value Reference Range Interpretation Comments CULTURE (BEAKER) (test No growth code = 1095) GRAM STAIN RESULT <1+ White blood cells (BEAKER) (test code = seen 1123) GRAM STAIN RESULT No organisms seen (BEAKER) (test code = 016425) POCT-GLUCOSE [id number] 12:55:00 Test Item Value Reference Range Interpretation Comments POC-GLUCOSE METER 93 mg/dL 70-110 : TESTED A T [facility] 6720 (BEAKER) (test code = [place], 1538) [address]: Transmitter Engineer In Charge/Techni romain ID = [id number] for DELFINO CABAN Protein, Total, Pleural [id number] 12:08:00 Test Item Value Reference Range Interpretation Comments PROTEIN, 1.1 Reference range is TOTAL, not defined and PLEURAL FLUID interpretation must (test code = be performed in the 2882-9) consideration o f the pathophysiology of the analyte and the clinical contex t. TEST PERFORMED AT [facility] ABAD (test Reference range is code = ABAD) not defined and interpretation must be performed in the consideration of the pathophysiology of the analyte and the clinical context. TEST PERFORMED AT [facility] CaliforniaPROTEIN, TOTAL, PLEURAL [id number] 12:08:00 Test Item Value Reference Range Interpretation Comments PROTEIN, TOTAL, 1.1 Reference ra nge is not PLEURAL FLUID defined and in terpretation (BEAKER) (test code must be performed in the = 9918873) consideration o f the pathophysiology of the analyte and the clinical context.TEST PE RFORMED AT [facility] Reference range is not defined and interpretation must be performed in the consideration of the pathophysiology of the analyte and the clinical context.TEST PERFOR[facility] AT [facility] LABBASIC METABOLIC PANEL 2019-12-07 06:49:00 Test Item Value Reference Range [...] S NOT APPLICABLE FOR DIALYSIS PATIEN TS. Transmitter Engineer In Charge ID - [id number] 06:39:00 Test Item Value Reference Range Interpretation Comments MAGNESIUM (BEAKER) (test code = 2.1 mg/dL 1.6-2.6 627) Transmitter Engineer In Charge ID - [id number] 06:39:00 Test Item Value Reference Range Interpretation Comments PHOSPHORUS (BEAKER) (test code = 2.8 mg/dL 2.3-4.7 604) Transmitter Engineer In Charge ID - EDASICBC with platelet count + automated [id number] 06:33:00 Test Item Value Reference Range Interpretation [...] K/CU MM H MPV (test code = 51103-5) 10.0 fL 9.4-12.4 nRBC (test code = [...] 2801) Lab Interpretation (test code = Abnormal 46994-3) [facility] W/PLT COUNT & AUTO [id number] 06:33:00 Test Item Value Reference Range Interpretation [...] PERCENT (BEAKER) (test code = 2801) PROTHROMBIN [id number] 06:22:00 Test Item Value Reference Range Interpretation [...] is2.5-3.5 for patients wiht mechanical heart valves.POCT-GLUCOSE [id number] 06:16:00 Test Item Value Reference Range Interpretation Comments POC-GLUCOSE METER 92 mg/dL 70-110 : TESTED Montrell Turner [facility] 67[address] (BEAKER) (test code = [place], 1538) [address]: Transmitter Engineer In Charge/Techni romain ID = [id number] for NORMAN FRANCE POCT-GLUCOSE [id number] 00:04:00 Test Item Value Reference Range Interpretation Comments POC-GLUCOSE METER 81 mg/dL 70-110 : TESTED A T [facility] 6720 (BEAKER) (test code = [facility], 153) [address]: Transmitter Engineer In Charge/Techni romain ID = [id number] for NORMAN FRANCE HEMOGLOBIN AND [id number] 20:49:00 Test Item Value Reference Range Interpretation Comments HEMOGLOBIN (BEAKER) (test code = 9.8 GM/DL 13.7-17.5 L 410) HEMATOCRIT (BEAKER) (test code = 30.0 % 40.1-51.0 L 411) Transmitter Engineer In Charge ID - [id number]-GLUCOSE [id number] 17:25:00 Test Item Value Reference Range Interpretation Comments POC-GLUCOSE METER 103 mg/dL 70-110 : TESTED A T [facility] 6720 (BEAKER) (test code = [facility], 153) [address]: Transmitter Engineer In Charge/Techni romain ID = [id number] for VIKA OCAMPOPRINCESS JASPREET POCT-GLUCOSE [id number] 14:01:00 Test Item Value Reference Range Interpretation Comments POC-GLUCOSE METER 99 mg/dL 70-110 : TESTED A T [facility] 6720 (BEAKER) (test code = [facility], 153) [address]: Transmitter Engineer In Charge/Techni romain ID = [id number] for ANDRÉS VOGEL, CHUN POCT-GLUCOSE [id number] 13:51:00 Test Item Value Reference Range Interpretation Comments POC-GLUCOSE METER 84 mg/dL 70-110 : TESTED A T [facility] 6720 (BEAKER) (test code = [facility], 153) [address]: Transmitter Engineer In Charge/Techni romain ID = [id number] for JON NAVARRO U/S, [id number] 13:05:00Laterality?->RightReason for exam:- >pleural effusionSpecimen to be collected:->ldh, protein, glucose, amylase, lipase, gram stain, culture, cs and cultureShould this be performed at the bedside?->NoLabs to be Ordered:->Glucose+LDH+ProteinLabs to be Ordered:->Cell CountLabs to be Ordered:->Body Fluid Culture (w/Gram Stain, C\\T\\S)[facility] CENTERName: [place]OLA [place] : 1990 Sex: MFINAL REPORT Exam: Ultrasound guided thoracentesis Clinical History: Right-sided Pleural Effusion Tripoler: Michelle Eric PA-C Supervising Physician: Austin Tee [...] Ultrasound guided right-sided thoracentesis. Signed: Austin Tee MDReport Verified Date/Time: 12/06/2019 13:05:38 Reading Location: [address] Ultrasound Reading Room Bette ctronically signed by: AUSTIN TEE MD on 12/06/2019 01:05 PMUS thoracentesis 2019-12-06 13:05:00Interface, External Ris In - 12/06/2019 1:08 PM CDTFINAL REPORT Exam: Ultrasound guided thoracentesis Clinical History: Right-sided Pleural Effusion Tripoler: Michelle Eric PA-C Supervising Physician: Austin Tee [...] Ultrasound guided right-sided thoracentesis. Signed: Austin Tee MDReport Verified Date/Time: 12/06/2019 13:05:38 Reading Location:[address] Ultrasound Reading Room [facility] W/PLT COUNT & AUTO [id number] 06:48:00 Test Item Value Reference Range Interpretation [...] (BEAKER) (test code = 2801) BASIC METABOLIC [id number] 06:48:00 Test Item Value Reference Range Interpretation [...] S NOT APPLICABLE FOR DIALYSIS PATIEN TS. Transmitter Engineer In Charge ID - [id number] 06:39:00 Test Item Value Reference Range Interpretation Comments MAGNESIUM (BEAKER) (test code = 2.2 mg/dL 1.6-2.6 627) Transmitter Engineer In Charge ID - [id number] 06:39:00 Test Item Value Reference Range Interpretation Comments PHOSPHORUS (BEVIANEY) (test code = 3.1 mg/dL 2.3-4.7 604) Transmitter Engineer In Charge ID - EDASIPROTHROMBIN TIME/[id number] 06:17:00 Test Item Value Reference Range Interpretation Comments PROTIME (TAI) (test code = 14.2 seconds 11.9-14.2 759) INR (BEAKER) (test code = 370) 1.13 <=5.90 Effective 07/03/2018: PT Reference Range ChangeNew: 11.9-14.2 Previous: 11.7- 14.7RECOMMENDED COUMADIN/WARFARIN INR THERAPY RANGESSTANDARD DOSE: 2.0-3.0 Includes: PROPHYLAXIS for venous thrombosis, systemic embolization; TREATMENT for venous thrombosis and/or pulmonary embolus.HIGH RISK: Target INR is2.5-3.5 for patients wiht mechanical heart valves.POCT-GLUCOSE [id number] 23:39:00 Test Item Value Reference Range Interpretation Comments POC-GLUCOSE METER 88 mg/dL 70-110 : TESTED A T [facility] 6720 (TAI) (test code = [place], 1538) [address]: Transmitter Engineer In Charge/Techni romain ID = [id number] for JON NAVARRO Body fluid cell count with [id number] 21:03:00 Test Item Value Reference Range Interpretation Comments Appearance (test code = Slightly Cloudy Clear A 9335-1) Color (test code = 6824-7) Straw Colorless, Straw RBCs (test code = 15030-2) 170 <=1 /cu mm H Adjusted WBC Count (test 455 <=5 /cu mm H code = 03371-8) Lining Cells (test code = 5 <=1 /cu mm H 02183-8) % Segs (test code = 55950-2) 4 % % Lymphs (test code = 63 % 28756-4) % Monos (test code = 31 % 16985-6) % Eos (test code = 07095-4) 2 % % Baso (test code = 86867-5) 0 % Container Body Fluid (test EDTA Tube code = 2873) Lab Interpretation (test Abnormal code = 38566-2) [facility] CaliforniaBODY FLUID CELL COUNT WITH [id number] 21:03:00 Test Item Value Reference Range Interpretation [...] EDTA Tube (BEAKER) (test code = 2873) [id number] 20:01:00 Test Item Value Reference Range Interpretation Comments LIPASE (BEAKER) (test code = 749) 10 U/L 8-78 Transmitter Engineer In Charge ID - DBHEMOGLOBIN AND [id number] 19:42:00 Test Item Value Reference Range Interpretation Comments HEMOGLOBIN (BEAKER) (test code = 10.2 GM/DL 13.7-17.5 L 410) HEMATOCRIT (BEAKER) (test code = 31.7 % 40.1-51.0 L 411) Transmitter Engineer In Charge ID - [id number], CHEST, 1 VIEW, NON [id number] 19:34:00Reason for exam:->post right sided thoracentesisShould this [...] Le Verified Date/Time: 12/05/2019 19:34:19 Reading Location: [address] Transitional Reading Room XR chest 1 view portable / [id number] 19:34:00 Interface, External Ris In - 12/05/2019 [...] Le Verified Date/Time: 12/05/2019 19:34:19 Reading Location: [address] Transitional [facility] [id number] 11:54:00 Test Item Value Reference Range Interpretation Comments POC-GLUCOSE METER 93 mg/dL 70-110 : Notified RN/: TESTED (BEAKER) (test code = AT [facility] [address] [place] [id number]) [facility], [facility] 30: Transmitter Engineer In Charge/Techni romain ID = [id number] for JULIUS ARRIAZA CBC (HEMOGRAM ONLY)2019-12-05 10:52:00 Test Item Value Reference [...] (BEAKER) (test code = 413) BASIC METABOLIC [id number] 07:38:00 Test Item Value Reference Range Interpretation [...] S NOT APPLICABLE FOR DIALYSIS PATIEN TS. Transmitter Engineer In Charge ID - [id number] 07:31:00 Test Item Value Reference Range Interpretation Comments MAGNESIUM (BEAKER) (test code = 1.7 mg/dL 1.6-2.6 627) Transmitter Engineer In Charge ID - [id number] 07:31:00 Test Item Value Reference Range Interpretation Comments PHOSPHORUS (BEAKER) (test code = 4.0 mg/dL 2.3-4.7 604) Transmitter Engineer In Charge ID - EDASIPROTHROMBIN TIME/[id number] 06:20:00 Test Item Value Reference Range Interpretation [...] mechanical heart valves.CBC W/PLT COUNT & AUTO [id number] 06:01:00 Test Item Value Reference Range Interpretation [...] PERCENT (BEAKER) (test code = 2801) POCT-GLUCOSE [id number] 05:38:00 Test Item Value Reference Range Interpretation Comments POC-GLUCOSE METER 91 mg/dL 70-110 : TESTED Montrell Turner [facility] 6720 (BEAKER) (test code = [place], 1538) [address]: Transmitter Engineer In Charge/Techni romain ID = [id number] for MEAGAN , A[place] POCT-GLUCOSE [id number] 18:00:00 Test Item Value Reference Range Interpretation Comments POC-GLUCOSE METER 114 mg/dL 70-110 H : TESTED A T [facility] 6720 (TAI) (test code = [place], 1538) [address]: Transmitter Engineer In Charge/Techni romain ID = [id number] for Viraj Plunkett CT, [id number] 14:36:00Unlisted Reason for Exam - Click Yes and Enter Reason Below->NoDuodenal ulcer s/p epi/cautery, now with abdominal pain, rule out perforationCHI JOHN [facility]. [facility] [place] : 1990 Sex: MFINAL [...] to patient's size and/or use of iterative reconstructive technique. [...] right and transverse colon. Signed: Ramona Miller Verified Date/Time: 12/04/2019 14:36:28 Reading Location: [address] Consult Reading Room HEMOGLOBIN AND [id number] 12:42:00 Test Item Value Reference Range Interpretation Comments HEMOGLOBIN (BEAKER) (test code = 9.5 GM/DL 13.7-17.5 L 410) HEMATOCRIT (BEAKER) (test code = 28.7 % 40.1-51.0 L 411) Transmitter Engineer In Charge ID - 6000POCT-GLUCOSE [id number] 12:07:00 Test Item Value Reference Range Interpretation Comments POC-GLUCOSE METER 73 mg/dL 70-110 : TESTED A T [facility] 6720 (BEAKER) (test code = CHANTE Mohamud [facility], 1538) [address]: Transmitter Engineer In Charge/Techni romain ID = [id number] for Verenice hermosillo Viraj BASIC METABOLIC [id number] 06:47:00 Test Item Value Reference Range Interpretation [...] S NOT APPLICABLE FOR DIALYSIS PATIEN TS. Transmitter Engineer In Charge ID - SOTERO MPOCT-GLUCOSE [id number] 05:56:00 Test Item Value Reference Range Interpretation Comments POC-GLUCOSE METER 114 mg/dL 70-110 H : TESTED A T [facility] 6720 (BEAKER) (test code = [place], 1538) [address]: Transmitter Engineer In Charge/Techni romain ID = [id number] for BERTA CASEY PROTHROMBIN TIME/[id number] 05:04:00 Test Item Value Reference Range Interpretation [...] mechanical heart valves.CBC W/PLT COUNT & AUTO [id number] 04:50:00 Test Item Value Reference Range Interpretation [...] (BEAKER) (test code = 2801) HEMOGLOBIN AND [id number] 00:35:00 Test Item Value Reference Range Interpretation Comments HEMOGLOBIN (BEAKER) (test code = 8.9 GM/DL 13.7-17.5 L 410) HEMATOCRIT (BEAKER) (test code = 26.5 % 40.1-51.0 L 411) Transmitter Engineer In Charge ID - 6000POCT-GLUCOSE [id number] 23:35:00 Test Item Value Reference Range Interpretation Comments POC-GLUCOSE METER 106 mg/dL 70-110 : TESTED A T [facility] 6720 (BEAKER) (test code = [facility], 1538) [address]: Transmitter Engineer In Charge/Techni romain ID = [id number] for [place] LLIAMS, CONSETTA HEMOGLOBIN AND [id number] 18:31:00 Test Item Value Reference Range Interpretation Comments HEMOGLOBIN (BEAKER) (test code = 9.5 GM/DL 13.7-17.5 L 410) HEMATOCRIT (BEAKER) (test code = 28.7 % 40.1-51.0 L 411) Transmitter Engineer In Charge ID - 6000POCT-GLUCOSE [id number] 17:46:00 Test Item Value Reference Range Interpretation Comments POC-GLUCOSE METER 117 mg/dL 70-110 H : TESTED A T [facility] 6720 (BEAKER) (test code = [facility], 153) [address]: Transmitter Engineer In Charge/Techni romain ID = [id number] for So moe, Giavanna HEMOGLOBIN AND [id number] 12:04:00 Test Item Value Reference Range Interpretation Comments HEMOGLOBIN (BEAKER) (test code = 8.7 GM/DL 13.7-17.5 L 410) HEMATOCRIT (BEAKER) (test code = 26.0 % 40.1-51.0 L 411) Transmitter Engineer In Charge ID - [id number]-GLUCOSE [id number] 11:58:00 Test Item Value Reference Range Interpretation Comments POC-GLUCOSE METER 132 mg/dL 70-110 H : TESTED A T [facility] 6720 (BEAKER) (test code = [facility], 1538) [address]: Transmitter Engineer In Charge/Techni romain ID = [id number] for So moe, Giavanna POCT-GLUCOSE [id number] 06:22:00 Test Item Value Reference Range Interpretation Comments POC-GLUCOSE METER 140 mg/dL 70-110 H : TESTED A T [facility] 6720 (BEAKER) (test code = [facility], 1538) [address]: Transmitter Engineer In Charge/Techni romain ID = [id number] for [place] LLIAMS, CONSETTA BASIC METABOLIC [id number] 05:07:00 Test Item Value Reference Range Interpretation [...] S NOT APPLICABLE FOR DIALYSIS PATIEN TS. Transmitter Engineer In Charge ID - PIAYA LCBC W/PLT COUNT & AUTO [id number] 04:53:00 Test Item Value Reference Range Interpretation [...] PERCENT (BEAKER) (test code = 2801) PROTHROMBIN TIME/[id number] 04:44:00 Test Item Value Reference Range Interpretation [...] patients wiht mechanical heart valves.U/S, ABDOMINAL, WITH [id number] 01:27:00Reason for exam:->evaluate splenic vein, SMV, portal [...] Verified Date/Time: 12/03/2019 01:27:24 US abdominal with [id number] 01:27:00Interface, External Ris In - 12/03/2019 1:29 [...] otherwise unremarkable.Right pleural effusion. Signed: Rosalia Golden MDReport Verified Date/Time: 12/03/2019 01:27:24 [facility] CaliforniaHEMOGLOBIN AND [id number] 01:05:00 Test Item Value Reference Range Interpretation Comments HEMOGLOBIN (BEAKER) (test code = 8.9 GM/DL 13.7-17.5 L 410) HEMATOCRIT (BEAKER) (test code = 26.3 % 40.1-51.0 L 411) Transmitter Engineer In Charge ID - [id number]-GLUCOSE [id number] 23:38:00 Test Item Value Reference Range Interpretation Comments POC-GLUCOSE METER 109 mg/dL 70-110 : TESTED A T [facility] 6720 (TAI) (test code = [place], 1538) [address]: Transmitter Engineer In Charge/Techni romain ID = [id number] for BERTA CASEY, [id number] 20:43:00 Test Item Value Reference Range Interpretation Comments ABO Grouping (test code = 2588) A Rh Factor (test code = 2589) [facility])2019-12-02 20:25:00 Test Item Value Reference Range Interpretation Comments SARS-COV2/RT-PCR (test Negative Not Detected, Negative, code = 7253596) See external report for linked test SARS-COV-2 PERFORMING LAB [facility] ERYN (test code = 3313890) Negative result for this test determines that [...] 564(g) of the Act.Fact Sheet for Healthcare Providers:https://www.Swyft/sites/default/files/product/documents/Fact_Shee b_AM_Oumlctfwj_Bcyy_PQCF-MoC-3.pdfFact Sheet for Healthcare Patients:https://www.Swyft/sites/default/files/product/ documents/Jvoi_Lyhfq_Cxhshoxz_Ksun_XSGT-JiG-9.pdfPerforming Laboratory:[place] [id number], [place] [address]HDTVPYLGXR AND [id number] 18:29:00 Test Item Value Reference Range Interpretation Comments HEMOGLOBIN (BEAKER) (test code = 6.7 GM/DL 13.7-17.5 L 410) HEMATOCRIT (BEAKER) (test code = 20.1 % 40.1-51.0 L 411) Transmitter Engineer In Charge ID - [id number] 17:35:00 Test Item Value Reference Range Interpretation Comments POC-GLUCOSE METER 124 mg/dL 70-110 H : TESTED A T [facility] 6720 (BEAKER) (test code = [facility], 1538) 38537: Transmitter Engineer In Charge/Techni romain ID = [id number] for AL ONSO MENSAH, VALERIA POCT-GLUCOSE [id number] 12:32:00 Test Item Value Reference Range Interpretation Comments POC-GLUCOSE METER 76 mg/dL 70-110 : TESTED A T [facility] 6720 (BEAKER) (test code = [facility], 1538) 63722: Transmitter Engineer In Charge/Techni romain ID = [id number] for JJ SO MENSAH, VALERIA HEMOGLOBIN AND [id number] 12:31:00 Test Item Value Reference Range Interpretation Comments HEMOGLOBIN (BEAKER) (test code = 7.3 GM/DL 13.7-17.5 L 410) HEMATOCRIT (BEAKER) (test code = 22.1 % 40.1-51.0 L 411) Transmitter Engineer In Charge ID - [id number] W/PLT COUNT & AUTO [id number] 06:28:00 Test Item Value Reference Range Interpretation [...] (BEAKER) (test code = 2801) BASIC METABOLIC [id number] 06:19:00 Test Item Value Reference Range Interpretation [...] S NOT APPLICABLE FOR DIALYSIS PATIEN TS. Transmitter Engineer In Charge ID - PIAYA LPROTHROMBIN TIME/[id number] 06:03:00 Test Item Value Reference Range Interpretation [...] INR is2.5-3.5 for patients wiht mechanical heart valves.[id number] 00:06:00 Test Item Value Reference Range Interpretation Comments LIPASE (BEAKER) (test code = 749) 4 U/L 8-78 L Transmitter Engineer In Charge ID - JESUS LBASIC METABOLIC [id number] 23:45:00 Test Item Value Reference Range Interpretation [...] S NOT APPLICABLE FOR DIALYSIS PATIEN TS. Transmitter Engineer In Charge ID - PIAYA LHEPATIC FUNCTION [id number] 23:45:00 Test Item Value Reference Range Interpretation [...] code = < U/L 6-55 L 347) Transmitter Engineer In Charge ID - PIAYA LPROTHROMBIN TIME/[id number] 23:37:00 Test Item Value Reference Range Interpretation [...] mechanical heart valves.CBC W/PLT COUNT & AUTO [id number] 23:33:00 Test Item Value Reference Range Interpretation [...] PERCENT (BEAKER) (test code = 2801) POCT-GLUCOSE [id number] 08:48:00 Test Item Value Reference Range Interpretation Comments POC-GLUCOSE METER 70 mg/dL 70-110 : TESTED A T [facility] 6720 (BEAKER) (test code = [facility], 1538) 406[address]: Transmitter Engineer In Charge/Techni romain ID = [id number] for ANDRÉS VOGEL CHUN [id number] 07:51:00 Test Item Value Reference Range Interpretation Comments PHOSPHORUS (BEAKER) (test code = 3.9 mg/dL 2.3-4.7 604) Transmitter Engineer In Charge ID - STEWARTARI Jo-Anntor ID - THUAN FBASIC METABOLIC [id number] 07:39:00 Test Item Value Reference Range Interpretation [...] S NOT APPLICABLE FOR DIALYSIS PATIEN TS. Transmitter Engineer In Charge ID - PIARI [id number] 07:18:00 Test Item Value Reference Range Interpretation Comments MAGNESIUM (BEAKER) (test code = 1.4 mg/dL 1.6-2.6 L 627) Transmitter Engineer In Charge ID - JESUS LCBC (HEMOGRAM ONLY)2019-10-24 06:33:00 [...] WBC 0-0 (BEAKER) (test code = 413) [id number] 06:32:00 Test Item Value Reference Range Interpretation [...] is2.5-3.5 for patients wiht mechanical heart valves.POCT-GLUCOSE [id number] 21:22:00 Test Item Value Reference Range Interpretation Comments POC-GLUCOSE METER 83 mg/dL 70-110 : TESTED A T [facility] 6720 (BEAKER) (test code = [facility], 1538) 62977: Transmitter Engineer In Charge/Techni romain ID = [id number] for MACIEL ANDREWS POCT-GLUCOSE [id number] 16:39:00 Test Item Value Reference Range Interpretation Comments POC-GLUCOSE METER 70 mg/dL 70-110 : TESTED A T [facility] 6720 (BEAKER) (test code = [facility], 1538) 30885: Transmitter Engineer In Charge/Techni romain ID = [id number] for AKIKO S, CORNEL POCT-GLUCOSE [id number] 11:58:00 Test Item Value Reference Range Interpretation Comments POC-GLUCOSE METER 86 mg/dL 70-110 : TESTED A T [facility] 6720 (BEAKER) (test code = [facility], 1538) 60834: Transmitter Engineer In Charge/Techni romain ID = [id number] for PRINCESS LUPILLO BASIC METABOLIC [id number] 08:03:00 Test Item Value Reference Range Interpretation [...] S NOT APPLICABLE FOR DIALYSIS PATIEN TS. Transmitter Engineer In Charge ID - [id number] 08:01:00 Test Item Value Reference Range Interpretation Comments PHOSPHORUS (BEAKER) (test code = 4.2 mg/dL 2.3-4.7 604) Transmitter Engineer In Charge ID - [id number] 08:01:00 Test Item Value Reference Range Interpretation Comments MAGNESIUM (BEAKER) (test code = 1.3 mg/dL 1.6-2.6 L 627) Transmitter Engineer In Charge ID - ROSIANGPOCT-GLUCOSE [id number] 07:57:00 Test Item Value Reference Range Interpretation Comments POC-GLUCOSE METER 78 mg/dL 70-110 : [facility] (BEAKER[facility] (test code = [facility] 1538) 15855: Transmitter Engineer In Charge/Techni romain ID = [id number] for AKIKO S, CORNEL CBC (HEMOGRAM ONLY)2019-10-23 [...] WBC 0-0 (BEAKER) (test code = 413) [id number] 07:18:00 Test Item Value Reference Range Interpretation [...] mechanical heart valves.CBC W/PLT COUNT & AUTO [id number] 22:51:00 Test Item Value Reference Range Interpretation [...] PERCENT (BEAKER) (test code = 2801) POCT-GLUCOSE [id number] 21:49:00 Test Item Value Reference Range Interpretation Comments POC-GLUCOSE METER 110 mg/dL 70-110 : TESTED A T [facility] 6720 (BEAKER) (test code = [facility], 1538) 00711: Transmitter Engineer In Charge/Techni romain ID = [id number] for JEROMY CONTRERAS Tissue [id number] 16:34:00 Test Item Value Reference Range Interpretation Comments Case Report (test code Surgical Pathology = 104) Report Case: [id number] Authorizing Provider: Marc Clark MD Collected: 10/17/2019 04:26 PM Ordering Location: [facility] Received: 10/20/2019 08:32 AM SERVICES Pathologist: aCrmina Grewal MD Specimens: A) - Gallbladder B) - Spleen DIAGNOSIS (test code = [id number] 3220) uZzEwMzNcZnRuYmpcdWMxIH dpmzFmEWtnl2JdN4PrAoOkF FxhbnNpXGRlZmxhbmcxMDMz KYZ0akAiGBUvEExgXIBkXOl kEe2hkQUzpMmbMuHlYNXam0 jilzHExeyruXj6f4qhQDXvH pG8lDBySTapH7kfryDovZSz DQPlBYh1qU00MOLvoZ1sjSK aJRwfmxXeZoM5OKuuFTIdBh E9EQSxhDVuAUBpY7dpVDUyS YhgNDOtIUcneNJuBSF4vGxz q2B7kLQfgSPnqOoaOxShAjW eBMTKa6TsYXu4yFkhK4NtNK BjXhW8tBKeAMJqEYgiMQYdA PVehgI5yQ94XZrlqsI0rGXr d6Esx37ht165dG3gwTAbCNE 1IPHhFQBkaBPoJNBiNMI1PJ MkhXEgZ6q2JwXlfKQeB1C3L gRgiJIeB2P6RpMsyTBhE7W6 BeZndUCqALUsaOEyCk6lzOZ ljTTdvi8llf99LQV5w0MidO tfLBW7NPA7SpCgXx9uzICyH DDySX1gXmRlmBRuXESuor72 wZgrBAorezBkwK1tSyFjHNX yxMFnJXOmYN6lzKInWNMvqG 5ucmxjXHBnYnJkcmhlYWRcc WpbpxWiGp9veGdtLRO1IPsx C7dwjD4aRmC3HSobS1zoqW5 tGJp7CNlfjWV5ZSGooJ5kOW 3lbgomi5zmWcLlAY1jyyqfi 7kjHxJpFZ0hndf7t4ymDaRs KT7ybwynt2qvIbAmEMuvIRM qxrksIHCer7UmeizgOHOhp8 IwY4QhtFenU18vmAkjN75dS MUqgSwdaL7zsVapcZ6tGlAt ZnMyNFxxbFxwbGFpblxmMVx mczIwXGxhbmcxMDMzXGhpY2 woNwYiWPPixSnxXPfxp6GjS UEiOWGdEwApKP1jZ7DRLAXF JMDLIJRyLQBPK1vAL3bYMRD DFR5QVNroqEUmFUYqRB3yI7 xYB73WArAQEO6OMRVIA8QVF JmTWKQJLLHWYV7PKISLKDZR RY5SSRJzaKEgECSfPC2fKf7 sI3WUWDMTY23XHDWTMADGRh RccGFyXHBhciBCLiBTUExFR H2bCXELMFNKDHQFW79IZlak ZTWmTVZeDVSSYIiZPLS6BRN 3MiBHTVxwYXIgICAgLSBTUE yJOe8NYKqFYMfdlDMpDJUqS O9bYJmDZDOHZSHMQBoJAePJ E83XPBTYTU4QYRWHVdDGOLp YFWWOD3QAJSPFCKUFF3qGA0 bVSWYGZq2UNATSGZEANTQgb vTiZMMbGU9LN8LASXWUKMZX XeDOAPbRT37BEgYMFD3VPVg MVPAKH74DJECxdqhoOOXsZ3 KvdUccaWWcCZWdQFakHDY5h 1xydGYxXHNzdGUxODAwMFxh bnNpXGRlZmxhbmcxMDMzXGZ 0bmJqXHVjMVxkZWZmMHtcZm 9zmAYmtKofJjEqUBTfj7cny rLHftqndCm1b6rsCQBhSrT0 jSQbDLxuO9idcfYsqVLzGVO dVUc4oV90PXCmcH4jaTLmSJ thyoNhIsY0MQqpPISnMkX7G LRawUXnZBCdI8ruYZXbVZmk KEDcOJmcsYAaFET7zYrmj6H 5bGVzaGVldHtcZjBcZnMyMi BWl5EeXTc5bLyeO1YmWKVuM dI1qZGfDKYlCZhwOVKkNCEz foW2wF68EObuxuE6vICbs4X ys41cd862qD9crOMvLNP1LD AhRGSamXMmDQPkMBL0BNMcg SMaW1xjNWYyPD7slazqTKbe WMziVWTlxJO6OAKhpPZlS2Y sCQWuCLgzRWOjuty3IyOnMp 5ktORygVurNUhnu0maq6krb XCsXud3LXTdQvKgXoufJUjk t4Fsl0pjPEGorf2cGVM2sJM ncCcnv0S5rRNfAZPuqYRdPY QuTJ0inISnLZIetY9qyfuwN HBnYnJkcmhlYWRccGdicmRy Jt8fzRfyETK8SHmfI1egfJ3 iEvK6ICqhI4nbqC0oITm0NA mcETAtoHA2cmK5ATWvnRJoR 7BzeC1zYTDnVW4hndz2x2lu LCW5BJjkBYDxGjV9wgM7KEW siPPeDAFacCgdCLdjo761GE H1XpFnWDJgs5ViD1UbpJdlS 52fdVlgI61pZNCrhPjfwC4e bGupdC7eGxDrHiCrDDqknGq cXP0kBHDoI1qcaISmDIYhJW HbZ5lvIgRcbH4wmUvbAUaek oMpPMMrHqj0GXUbeQHnRBRh Euv8FUVdLUCdI09cbrfkKDK 1pM3td0ura4TiZEpwWMW0KO Xhw61zTXfiryK1TIioMe91V OfdIEM0JwcmHCN5uT== CPT Code(s) (test code i6ysjAObAWHgwHHtDrOfXAS = 3357) hVLKnx9lxYIEtwEEyRiKiNx NcZnRuYmpcdWMxXGRlZmYwe 5uzf922zJZpz1awWUVrBdB2 lEDvSAKkhQGlX107u2bam0p ilgEutJD6QHTbIPL5BJdhlm NgenS3EIzeoJIzUnM1XSuvm jDgVJixqaSkknSnKuc8SQKx E507LHI4oQhno7plJGG0IBK cRBEiDqSlMv0jtZIwL645RL EqZBNIDYQvaYi2YCSbupIsl cVccQFSq821L281b4vnQSVh dwOlkFcZdrzfe0wlT836NKB hcGVydzEyMjQwXHBhcGVyaD C2EHDoPS0kitlzBbXiJV6qb tfpJwZhJF4hdhi3LmCcSV7l cmdiNzIwXGhlYWRlcnkwXGZ ov3WeikqpBX0bA9Jfc4T8qL 9maXRcZGVmdGFiNzIwXGZvc m9zjOTaBKvok8KjULS0bzV8 mWYgwKYcBWQsOW06Qtxlu3E uTjllUDK9HCJqlcYdc6Wyp8 caOuQugkScE8tuQ8LaJHUaM BArNXLuXxUmxfCoq6Kfh7Rh sXCkgFb5p6fgVGNxETKtrBr ok4pdVGV7CSPtQ1W2oTCst6 jnZHctTYEzoOE1vieyRPczL MTmyeS6tlcrGYrwOOZwoVG6 jwjiOVagGKWoLgL7gocuDEo kDBVlWUP3TFcsi159MCS9TO xzYmtwYWdlXHBnbmNvbnRcc GduZGVjXHBsYWluXHBsYWlu XGYwXGZzMjRccWxccGxhaW5 yHdNmRsKyKYerIC9mCRPvE3 xggUBjYQPpMVMzZ3xmEvYvk H4xhXwnEPbiyvMrXMn5LbC9 FrT0MLYfI9kdWQK6 CLINICAL HISTORY (test f1azhCSnCRShxXShZmOmKEF code = 3356) eFMGpu8thZBFzuDScHvKzQz NcZnRuYmpcdWMxXGRlZmYwe 6trr565mNEaw9ngKTLnGnJ7 rDGyGJMvaVDjT077t7knd2m usnLkiBF9HSUzPRA0OEysvi QrtyH9BXftnQRuGlH6YQjll nFpSPntxyXpgvIkBhm7GWPx Y785WJI6dGboh4raKKT2AIY mZEWdGeFxTe2fdPTmC248IC GtTZZZYZVfoGk8JDXpsgDkr iTzfKVEk377G387b7dsOZJo ygPhiSgRwusbo5caK473CYI hcGVydzEyMjQwXHBhcGVyaD Y6HIUiSU4qcnwtFoBqMG8sk eehUkLvXW0pesc0JyDgZF9w cmdiNzIwXGhlYWRlcnkwXGZ pg2QruwswVD2iK7Zyk9N7uN 9maXRcZGVmdGFiNzIwXGZvc z5juCMdZNrum8VbVLX0ejA4 fFTgqLGvXESyRQ37Nwxqc3D aTbohDFW7RHVmxdNky1Yhc5 lkXkOsjuAvV9rgJ1RxVIOlZ RAmQKKnDqQdlbVgr2Tcv9Oh pABsdTl5c5yjWZSdOVGhaYe qa6ijIRL0GGLaJ8I6dLTlq6 twCKmfXYCauZU4kswdKSieN BUmwuB2zckeAUqfJTVjmZS1 klzgHUmkEZAbYuF2rqtvNXl eVRAkVRH0ZSnus458IRG0MI xzYmtwYWdlXHBnbmNvbnRcc GduZGVjXHBsYWluXHBsYWlu XGYwXGZzMjRccWxccGxhaW5 iOcOsRpJtCHshIL0fERRrH3 ggvFPwUSLgNUBcO8cjOdPcq D3ewPrzTRvgufKnTGRnRD5p XWZaLOlyw7JhzoeqSKCdmc4 beDCfsPPsD8LgWBBxgLufDL C9jzZvVVJmYcveISRkBT1jp iBmeAa7xPYhqFkyZCDdaeYn b7XbRE4eZbE8KQleBCCfuf8 kEn6fpUTxEUtwIAU5 SPECIMEN SOURCE (test q3vnrBRtVHZphFRyPxStQJG code = 3377) sOQIes7aeWBAxkEOoTuMpGx NcZnRuYmpcdWMxXGRlZmYwe 5mle473xCJlh0mbKLBmQlQ1 zIHoNHEjpFInW880n0zwi8g fzuBbfFY8NRZgMHG6WXdgaf KatxG3LJetqZBpJhI8TSynh kWtCIyjceGfopXwSvu2EHKp E651JUY0bXeaw8jbIPJ9NRH hDLGvElDhHk2odSHxC598OY WeWJFELXPvpMa9VNEkleEbw mTxwQKZz230S639p9bkYGXj qpNsvHrViitiu3qzG066IYU hcGVydzEyMjQwXHBhcGVyaD G4JRBdZI9tonlqJgOwTT2qw olkQnDdIB8qomo5NyGxLF7y cmdiNzIwXGhlYWRlcnkwXGZ ft3PesdmgWQ1dM4Znf8F1zC 9maXRcZGVmdGFiNzIwXGZvc c2mpRBbYFjnw8BwUHT7zlO0 vHAzyKNxDZRhLK26Ayver6S bZmeeSAG8KWKjlnYtq3Xln7 ntSxLitaLcB3enE8UmASWyD KTmCOPaGfXrrfFft5Wwa8Uu oWWuaBd8w4zrHCOeJEPxgLw gf6fvCDI1MBZdQ5C0cIZrd4 vkQHnzDCUwtTO8oacbIYfgU JRfmqL5twmuJGyaXFVwxPM3 kccnLCjqKFSlNaG9rbiyNMr nJCHgAHF9FSipl616NQR7FH xzYmtwYWdlXHBnbmNvbnRcc GduZGVjXHBsYWluXHBsYWlu XGYwXGZzMjRccWxccGxhaW5 eQaFoDwXmHVqkHN0nUBMvV7 tnqROdMUHrQKLyI6fdQiAdh I2ziMgaWDvuxqUdQZkgpFea bGFkZGVyIGFuZCBzcGxlZW5 ccGFyfQ== GROSS DESCRIPTION m0ihpGCrUKFkhTRaMqMtQQX (test code = 3366) gGOGnc0asCGFyeYQaOwAoCw NcZnRuYmpcdWMxXGRlZmYwe 2mrc744yBErt9iiJZSpMfD1 xEOmZJAxaFQvW531VDBoEDn br3ydn6TdUFPuwNZlo5O9VD QXbwavcSu2sEqjO49wr6O6Z stjH0gaCQQsUWAcU3UtEF4o ESFvIng8MDW2BPB1JMFoEEG nT9CkUQ1sHNYbgIRcYJe1s6 gklEkdPKQbYBY7w0jsPLtfo hZrLH2hrq3rnHi8n7eifgSx WVLnSUHraDVJOPVpY2IhjUn vIo0rgXs0iIqmWdoqKUL3Dz e3TN1wwv58wit8nXyfQGGre kfjEdU2HWguKRAmsiioZDp8 MFxtYXJnbDcyMFxtYXJncjc yMFxtYXJndDcyMFxtYXJnYj npXZavBGJpFFW1ZEqir003P FH6KTwjs0uvi6ydzHXlSqm7 GTVfRwNqUobmKCmug4Lna7x gNHMvmm0iBXW2uTMdcRpfz3 L9rGGgSDEijXPmvkXvPCOeQ kF6SLfgGU4pfy54ADShRIZ9 zn5zoMLktJviisPqnTJeGGi kN3LgJVVzc870PGVuR4EqIP Ouv6Q6wiXpGlEfZLGclKR8f qI1BRYdBCa9iQSvzfR4ksMh mWBeR6gsjS83AbYxgUUbV6E vkH22UoAgwJDbS8LikT80Ar PlzQVzS5JtxL05IvYgpENbR IUvhADxFl5peDXsjVSwf9Ky mOYySEpwE72vg257HURhjxL mU5zhuUHthwgevSEjgcsmXO ikqaE0KAAlVGCeAQgoPJWsN GZzMjBcbGFuZzEwMzNcaGlj aLxbGIedNpEzTROfBLosE5p cZjFcZnMyMCBBLiBSZWNlaX ZlZCBmcmVzaCBsYWJlbGVkI HdpdGggdGhlIHBhdGllbnQn yhUlML0fKJHwG8Gwi4Iyz84 umqKbBsWhWWGsGCLcX5LveD RmFGSsBJVasUVlLGR2ByWtT 08csZ4ojAHuO9VjPOruNM75 KEZxZLzzDWVhIF4jdNVlUPF bpvJ1gV25t0o7TK5yNY4nAA HmXThsCvwnLWOxgz2wWAkvk aRafSJofw6sQPP2OYJlGHZp N0iqdHdpOUV1V2ZuIE9wOE5 bMZw8vMHbHE5iWGAasQPekq FnTxpxAA3uLGotBHSmfa0nW PSkmvHkkqJ2GLA1oiQzTRdi z06bl7IhYIOtZYKsqCZxkrE ivNAgDXMlo42pc8FayepwEk groSwqouCksWQkxl6uQzmfY UKpfeOlQDlzyIx9uqIcoqLv NW54QmJCsGXilJTce0ExWVj pNKIzlp4put69dvSptkTgie PjcpX9iU5wJCreFFfofZxyg NcjF7igSQTkJHsjEODjMsEo tC2bZfRbibDaGG11PBWqtnC zf6IuaAncolSjJRSyTCL4Uo 0igOAhMETmiuEyWYElEHC4Z INRMS7ISx8aVFicSTIlvEZu IHJjPBXbR4BmhoMeAGCxLHV yHZinNrMlSOUwg9n1iLY4jC TazWI9uWUzhHhsGL9veADeQ LHyG5Iyt4ysepXjqT5oMDPc AN5dVTSgq8QeIUQvTcGlmcC gSTG8YmOmxOhiYLZwAAW2QF AqTtGwaBUhImJfH31yn1SyI HDeIHouwUqqDNEdF7PnoZQr aJ27wbYyw9FuMGO8DCDcHGG ttGmiJFWyHwF6QhGTqYVpM8 Mip1BbIFOilkMsbcW2FF7zo g8cggBgvgCenI61SDO2ICRo byBzdWJjYXBzdWxhciBsYWN chwR2fT0yAGaySAczXQ26wE CsMEDgFSEdMHIrrXYws8PbL pMrRUKbdZNkiWP2zaIvHUOq RV6ssm11mypqvJ7nz5nxchQ vuFKfJL9iCXFkybJxCLScBH SxOBGzPYXujrRqzI6qCfMGq mFoFIZhZEKmRSKlGBquZQ11 aWZpZWQuIFxwYXJccGFyIEl busGaq3ZzPvNxoSJpTLJjoM UgLSBjYXBzdWxlXHBhclxwY GLjA4TcoQgiefYyx5IsTtBt cGFyIEIxLCBmdWxsLXRoaWN lszDsycTlBZN0jS9kOIFipN Z7dPSddB5zhNsoYWOexZKiC 2xaVUZqweHFSbelrCGoUH8x fLswYIV8mbYqdDzjjnBtBGY clC4utUBnSEShwv7= MICROSCOPIC z2nrrTVvWJGchYPkVsMwONO DESCRIPTION (test code cEMNlv1baTSQiiCNaCdCtRr = 3371) NcZnRuYmpcdWMxXGRlZmYwe 5wff843dJYoc4jnOPVxIvJ5 gTXsKOIhzZIdU889j7mbd4x xjiFohJN7RTRuMMC2HPuarb CzkmL2MHxjsUDtSjJ8KAopr gCtOSslahOqreUoWpf3ZZYg T903AIW9mTtbi8wcOBK7KWH sTDEmPsZrXy9qwONzJ259EB YjSQEIPRDdjKm0RTCexwTxb oNnlGJCo541F531c7sjNPLu wiZgwPeGgfpxu5qvX104AOD hcGVydzEyMjQwXHBhcGVyaD U0UMBfPR4eclqlLuGaLM4mj pdwWtOnKQ2jnbf4JeBvAC7t cmdiNzIwXGhlYWRlcnkwXGZ oq4VgqyahQC8tW0Djl7J1kZ 9maXRcZGVmdGFiNzIwXGZvc e5emITzNNkkp3RbYKP7uzR9 fUYeoGZuUSSaKS16Lvuun2D hKxkoYNP9RSHdjpLmf3Vfd8 erBcAzwcHzY4ctI5FhUFRrK MHfSIYhBnVpeaDip5Jfe8Rr kKGygMp2x0jfVCPjUEWuvTz ht6zvQOM0ZWUaG5I8hPKef8 lqOTgiPSEwuJV4lvclCCrsR DRenxW8ivfaIHfsXGAvbAC3 yknhJGmxAVLsSvQ8wrdeDBf yPCYqSWQ1FVlbn340RLY4IQ xzYmtwYWdlXHBnbmNvbnRcc GduZGVjXHBsYWluXHBsYWlu XGYwXGZzMjRccWxccGxhaW5 bEbHsCgPfUPhgFS7qIOWbC3 utyVUjMWKxWZSfP7lwHbWeh X0brYstKKllsqNiDWTzgdPe fk0lYWFsmTKzlL== [facility] [id number] 16:34:00Surgical Pathology Report Case: [id number] Authorizing Provider: Marc Clark MD Collected: 10/17/2019 04:26 PM Ordering Location: [facility] Received: 10/20/2019 08:32 AM SERVICES Pathologist: Carmina Grewal MD Specimens: A) - Gallbladder B) -Spleen A. GALLBLADDER, CHOLECYSTECTOMY: - CHRONIC CHOLECYSTITIS AND CHOLESTEROLOSIS - NO GALLSTONE PRESENTB. SPLEEN, SPLENECT WILLY: - WEIGHT: 272 GM - SPLENOMEGALY - MILD VASCULAR CONGESTION, NO SIGNIFICANT PATHOLOGIC ABNORMALITY - NEGATIVE FOR MALIGNANCY OR LYMPHOMACC/pl Signing Pathologist Direct Phone Line: [phone] signed by Carmina Grewal MD on 10/22/2019 at 4:34 [id number]; [id number] diagnosis: Chronic pancreatitis, unspecified pancreatitis type and [...] velvety. The wall thickness is 0.2 cm. Mold Maker Helper sections are submitted in cassette A1- A2. [...] capsule to hilar marginB2, parenchymato hilar marginPerformedPOCT-GLUCOSE [id number] 15:47:00 Test Item Value Reference Range Interpretation Comments POC-GLUCOSE METER 91 mg/dL 70-110 : TESTED A T [facility] 6720 (BEAKER) (test code = [facility], 1538) [address]: Transmitter Engineer In Charge/Techni romain ID = [id number] for ANDRÉS [facility]ST[facility] POCT-GLUCOSE [id number] 12:25:00 Test Item Value Reference Range Interpretation Comments POC-GLUCOSE METER 101 mg/dL 70-110 : TESTED A T [facility] 6720 (BEAKER) (test code = [facility], 1538) [address]: Transmitter Engineer In Charge/Techni romain ID = [id number] for VIKA [facility]ST[facility] BASIC METABOLIC [id number] 10:59:00 Test Item Value Reference Range Interpretation [...] S NOT APPLICABLE FOR DIALYSIS PATIEN TS. Transmitter Engineer In Charge ID - SOTERO [id number] 10:54:00 Test Item Value Reference Range Interpretation Comments PHOSPHORUS (BEAKER) (test code = 4.6 mg/dL 2.3-4.7 604) Transmitter Engineer In Charge ID - SOTERO [id number] 10:54:00 Test Item Value Reference Range Interpretation Comments MAGNESIUM (BEAKER) (test code = 1.5 mg/dL 1.6-2.6 L 627) Transmitter Engineer In Charge ID - SOTERO MPOCT-GLUCOSE [id number] 07:03:00 Test Item Value Reference Range Interpretation Comments POC-GLUCOSE METER 177 mg/dL 70-110 H : Pt. refu sed rpt tst: (BEAKER) (test code = TESTED AT [facility] 67[address] 4106) [place], [address]: Transmitter Engineer In Charge/Techni romain ID = [id number] for KINA TANESHAERIC HEALY [id number] 06:53:00 Test Item Value Reference Range Interpretation [...] 0-0 (BEAKER) (test code = 413) POCT-GLUCOSE [id number] 06:38:00 Test Item Value Reference Range Interpretation Comments POC-GLUCOSE METER 73 mg/dL 70-110 : TESTED A T [facility] 6720 (BEAKER) (test code = [facility], [facility]) [address]: Transmitter Engineer In Charge/Techni romain ID = [id number] for ERIC TURCIOS POCT-GLUCOSE [id number] 23:59:00 Test Item Value Reference Range Interpretation Comments POC-GLUCOSE METER 87 mg/dL 70-110 : TESTED A T [facility] 6720 (BEAKER) (test code = [facility], 153) [address]: Transmitter Engineer In Charge/Techni romain ID = [id number] for JOSIAH SKINNER, ERIC POCT-GLUCOSE [id number] 18:51:00 Test Item Value Reference Range Interpretation Comments POC-GLUCOSE METER 80 mg/dL 70-110 : TESTED A T [facility] 6720 (BEAKER) (test code = [facility], 153) [address]: Transmitter Engineer In Charge/Techni romain ID = [id number] for Noemi Vivar Amylase Peritoneal [id number] 15:15:00 Test Item Value Reference Range Interpretation Comments AMYLASE, PERITONEAL 9 U/L See Comment FLUID (test code = 9838775) ABAD (test code = Amylase activity in ABAD) peritoneal fluids of non-pancreatic origin is often less than or equal to the amylase activity in blood, whereas elevated amylase activity has been reported in fluid of pancreatic origin (five-folds or higher compared to contemporaneously collected blood specimen).This test has been modified from the quarter doper's instructions and its performance characteristics were determined by [facility]. The laboratory is regulated under CLIA as qualified to perform high-complexity testing. This test has not been cleared or approved by the U.S. Food and Drug Administration. The reference intervals and other method performance specifications are unavailable for amylase in peritoneal fluid. Comparison of this result with the blood amylase is recommended. Transmitter Engineer In Charge ID - ENOC SERRANO [facility] Center[facility]YL[facility] PERITONEAL [id number] 15:15:00 Test Item Value Reference Range Interpretation Comments AMYLASE, PERITONEAL FLUID (test code = 9 U/L See Comment [id number]) Amylase activity in peritoneal fluids of non-pancreatic origin is often less than or equal to the amylase activity in blood, whereas elevated amylase activity has been reported in fluid of pancreatic origin (five-folds or higher compared to contemporaneously collected blood specimen).This test has been modified from the quarter doper's instructions and its performance characteristics were determined by [facility]. The laboratory is regulated under CLIA as qualified to perform high-complexity testing. This test has not been cleared or approved by the U.S. Food and Drug Administration. The reference intervals and other method performance specifications are unavailable for amylase in peritoneal fluid. Comparison of this result with the blood amylase is recommended.Transmitter Engineer In Charge ID - SUDARSHANGAMYLASE PERITONEAL [id number] 15:15:00 Test Item Value Reference Range Interpretation Comments AMYLASE, PERITONEAL FLUID (test code = 15 U/L See Comment [id number]) Amylase activity in peritoneal fluids of non-pancreatic origin is often less than or equal to the amylase activity in blood, whereas elevated amylase activity has been reported in fluid of pancreatic origin (five-folds or higher compared to contemporaneously collected blood specimen).This test has been modified from the quarter doper's instructions and its performance characteristics were determined by [facility]. The laboratory is regulated under CLIA as qualified to perform high-complexity testing. This test has not been cleared or approved by the U.S. Food and Drug Administration. The reference intervals and other method performance specifications are unavailable for amylase in peritoneal fluid. Comparison of this result with the blood amylase is recommended.Transmitter Engineer In Charge ID - BRIDGERESIUM 2019-10-21 14:08:00 Test Item Value Reference Range Interpretation Comments MAGNESIUM (BEAKER) 1.7 mg/dL 1.6-2.6 Specimen moderately (test code = 627) hemolyzed Transmitter Engineer In Charge ID - [id number] 14:08:00 Test Item Value Reference Range Interpretation Comments PHOSPHORUS (BEAKER) 4.1 mg/dL 2.3-4.7 Specimen moderately (test code = 604) hemolyzed Transmitter Engineer In Charge ID - ROSIANGBASIC METABOLIC [id number] 14:08:00 Test Item Value Reference Range Interpretation [...] S NOT APPLICABLE FOR DIALYSIS PATIEN TS. Transmitter Engineer In Charge ID - ROSIANGSARS-COV2/RT-PCR ([facility])2019-10-21 13:42:00 Test Item Value Reference Range Interpretation Comments SARS-COV2/RT-PCR (test Negative Not Detected, Negative, code = 3158255) See external report for linked test SARS-COV-2 PERFORMING LAB [facility] ERYN (test code = 6435846) Negative result for this test determines that [...] 564(g) of the Act.Fact Sheet for Healthcare Providers:https://www.[employer]/sites/default/files/product/documents/Fact_Shee g_QL_Dfowdffqz_Vtsf_OBCC-LeQ-9.pdfFact Sheet for Healthcare Patients:https://www.[employer]/sites/default/files/product/ documents/Vxto_Ublos_Ronboslg_Oaas_SKEG-NrW-8.pdfPerforming Laboratory:[facility], [place] [address]SXRO-JYIPNHE METER 2019-10-21 12:41:00 Test Item Value Reference Range Interpretation Comments POC-GLUCOSE METER 99 mg/dL 70-110 : TESTED A T [facility] 6720 (BEAKER) (test code = [facility]AN[facility]am[facility], 1538) [address]: Transmitter Engineer In Charge/Techni romain ID = [id number] for DIMA JENKINSA [id number] 10:39:00 Test Item Value Reference Range Interpretation [...] CELLS (BEAKER) (test code = 413) POCT-GLUCOSE [id number] 07:09:00 Test Item Value Reference Range Interpretation Comments POC-GLUCOSE METER 155 mg/dL 70-110 H : TESTED A T [facility] 6720 ([facility]) (test code = [facility], [facility]) [address]: Transmitter Engineer In Charge/Techni romain ID = [id number] for UE MAXIME, PROSPER POCT-GLUCOSE [id number] 06:41:00 Test Item Value Reference Range Interpretation Comments POC-GLUCOSE METER 66 mg/dL 70-110 L : TESTED A T [facility] 67[address] ([facility]) (test code = [facility], [facility]) [address]: Transmitter Engineer In Charge/Techni romain ID = [id number] for UEMA RU, PROSPER POCT-GLUCOSE [id number] 06:13:00 Test Item Value Reference Range Interpretation Comments POC-GLUCOSE METER 66 mg/dL 70-110 L : TESTED A T [facility] [address] ([facility]) (test code = [facility], [facility]) [address]: Transmitter Engineer In Charge/Techni romain ID = [id number] for UEMA RU, PROSPER POCT-GLUCOSE [id number] 00:20:00 Test Item Value Reference Range Interpretation Comments POC-GLUCOSE METER 75 mg/dL 70-110 : TESTED [facility] T [facility] CENTER) (test code = [facility], [facility]) [address]: Transmitter Engineer In Charge/Techni romain ID = [id number] for UEMA RU, PROSPER POCT-GLUCOSE [id number] 17:58:00 Test Item Value Reference Range Interpretation Comments POC-GLUCOSE METER 81 mg/dL 70-110 : TESTED A T [facility] 6720 ([facility]) (test code = [facility], [facility]) [address]: Transmitter Engineer In Charge/Techni romain ID = [id number] for Cb, Noemi POCT-GLUCOSE [id number] 11:56:00 Test Item Value Reference Range Interpretation Comments POC-GLUCOSE METER 87 mg/dL 70-110 : Notified RN/MD: TESTED ([facility]) (test code = AT [facility] [address] [place] [address]) [facility], [facility] 30: Transmitter Engineer In Charge/Techni romain ID = [id number] for Simm ons, Anna POCT-GLUCOSE [id number] 07:16:00 Test Item Value Reference Range Interpretation Comments POC-GLUCOSE METER 99 mg/dL 70-110 : TESTED A T [facility] 6720 (BEAKER) (test code = [place], 1538) [address]: Transmitter Engineer In Charge/Techni romain ID = [id number] for PRINCESS JANET MORGAN BASIC METABOLIC [id number] 04:58:00 Test Item Value Reference Range Interpretation [...] S NOT APPLICABLE FOR DIALYSIS PATIEN TS. Transmitter Engineer In Charge ID - JESUS [id number] 04:33:00 Test Item Value Reference Range Interpretation Comments PHOSPHORUS (BEAKER) (test code = 3.3 mg/dL 2.3-4.7 604) Transmitter Engineer In Charge ID - JESUS [id number] 04:33:00 Test Item Value Reference Range Interpretation Comments MAGNESIUM (BEAKER) (test code = 1.8 mg/dL 1.6-2.6 627) Transmitter Engineer In Charge ID - JESUS LCBC (HEMOGRAM ONLY)2019-10-20 04:24:00 [...] WBC 0-0 (BEAKER) (test code = 413) [id number] 04:11:00 Test Item Value Reference Range Interpretation [...] is2.5-3.5 for patients wiht mechanical heart valves.POCT-GLUCOSE [id number] 00:29:00 Test Item Value Reference Range Interpretation Comments POC-GLUCOSE METER 91 mg/dL 70-110 : TESTED A T [facility] 6720 (BEAKER) (test code = [place], 1538) [address]: Transmitter Engineer In Charge/Techni romain ID = [id number] for BARB BENNETT IGG SUBCLASS-4 [id number] 21:18:00 Test Item Value Reference Range Interpretation Comments Igg 4 (test code = 64.5 mg/dL 4-86 20190419) ABAD (test code = Performing Lab EZ ABAD) [facility] [address] [place] [address] Parker Herman MD, PhD, VENKATA [facility] CaliforniaPOCT-GLUCOSE [id number] 17:40:00 Test Item Value Reference Range Interpretation Comments POC-GLUCOSE METER 91 mg/dL 70-110 : [facility] (BEAKER[facility] (test code = [place], 1538) [address]: Transmitter Engineer In Charge/Techni romain ID = [id number] for HINT ONJOSY [id number] 17:22:00 Test Item Value Reference Range Interpretation Comments MAGNESIUM (BEAKER) (test code = 1.7 mg/dL 1.6-2.6 627) Transmitter Engineer In Charge ID - CARLOS [id number] 17:21:00 Test Item Value Reference Range Interpretation Comments PHOSPHORUS (BEAKER) (test code = 3.2 mg/dL 2.3-4.7 604) Transmitter Engineer In Charge ID - CARLOS CBASIC METABOLIC [id number] 17:08:00 Test Item Value Reference Range Interpretation [...] S NOT APPLICABLE FOR DIALYSIS PATIEN TS. Transmitter Engineer In Charge ID - CARLOS CPOCT-GLUCOSE [id number] 12:50:00 Test Item Value Reference Range Interpretation Comments POC-GLUCOSE METER 136 mg/dL 70-110 H : TESTED A T [facility] 6720 (TAI) (test code = CHANTE Mohamud [facility], 1538) [address]: Transmitter Engineer In Charge/Techni romain ID = [id number] for IMANI MARTIN POCT-GLUCOSE [id number] 12:08:00 Test Item Value Reference Range Interpretation Comments POC-GLUCOSE METER 64 mg/dL 70-110 L : Will Rep eat Test: (TAI) (test code = Notifi ed RN/MD: TESTED 153) AT [facility] [address] [facility], 770 30: Transmitter Engineer In Charge/Techni romain ID = [id number] for JOSY WILL RAD, CHEST, 1 VIEW, NON [id number] 08:14:00Reason for exam:->s/p intubation, s/p laparotomy, eval [...] Fowler Verified Date/Time: 10/19/2019 08:14:40 Reading Location: [address] Neuro Reading Room POCT-GLUCOSE METER 2019-10-19 06:48:00 Test Item Value Reference Range Interpretation Comments POC-GLUCOSE METER 70 mg/dL 70-110 : TESTED A T [facility] 6720 (BEVIANEY) (test code = CHANTE Cade [facility], 1538) [address]: Transmitter Engineer In Charge/Techni romain ID = [id number] for ORLANDO GRAY [id number] 02:18:00 Test Item Value Reference Range Interpretation [...] INR is2.5-3.5 for patients wiht mechanical heart valves.[id number] 02:03:00 Test Item Value Reference Range Interpretation Comments PHOSPHORUS (BEAKER) (test code = 1.4 mg/dL 2.3-4.7 LL 604) Transmitter Engineer In Charge ID - SOTERO MBASIC METABOLIC [id number] 02:02:00 Test Item Value Reference Range Interpretation [...] S NOT APPLICABLE FOR DIALYSIS PATIEN TS. Transmitter Engineer In Charge ID - SOTERO [id number] 01:59:00 Test Item Value Reference Range Interpretation Comments MAGNESIUM (BEAKER) (test code = 1.9 mg/dL 1.6-2.6 627) Transmitter Engineer In Charge ID - SOTERO MBLOOD GAS, [id number] 01:49:00 Test Item Value Reference Range Interpretation [...] 0-0 (BEAKER) (test code = 413) POCT-GLUCOSE [id number] 00:32:00 Test Item Value Reference Range Interpretation Comments POC-GLUCOSE METER 97 mg/dL 70-110 : TESTED A T [facility] 6720 (BEAKER) (test code = [place], 1538) [address]: Transmitter Engineer In Charge/Techni romain ID = [id number] for GO ZBRIEL Prepare [id number] 23:55:00 Test Item Value Reference Range Interpretation Comments CROSSMATCH (test code = 2264) COMPATIBLE Unit ABO (test code = A Pos 0837932) UNIT NUMBER (test code = [id number] 934-0) Status (test code = 6919112) TX_TIMEINCHART Blood Bank Product (test code RED BLOOD CELLS = 2263) PRODUCT CODE (test code = D5078B92 933-2) [facility] (HEMOGRAM ONLY)2019-10-18 20:53:00 Test Item Value Reference [...] 0-0 (BEAKER) (test code = 413) POCT-GLUCOSE [id number] 17:27:00 Test Item Value Reference Range Interpretation Comments POC-GLUCOSE METER 99 mg/dL 70-110 : TESTED A T [facility] 6720 (BEAKER) (test code = [place], 1538) [address]: Transmitter Engineer In Charge/Techni romain ID = [id number] for JOSY WILL CBC (HEMOGRAM ONLY)2019-10-18 12:31:00 [...] 0-0 (BEAKER) (test code = 413) POCT-GLUCOSE [id number] 12:12:00 Test Item Value Reference Range Interpretation Comments POC-GLUCOSE METER 111 mg/dL 70-110 H : TESTED A T [facility] 6720 (BEAKER) (test code = [place], 1538) [address]: Transmitter Engineer In Charge/Techni romain ID = [id number] for JOSY JEFF BLOOD GAS, [id number] 05:05:00 Test Item Value Reference Range Interpretation [...] code = 1819) 40.0 % BASIC METABOLIC [id number] 04:56:00 Test Item Value Reference Range Interpretation [...] S NOT APPLICABLE FOR DIALYSIS PATIEN TS. Transmitter Engineer In Charge ID - SOTERO [id number] 04:55:00 Test Item Value Reference Range Interpretation Comments PHOSPHORUS (BEAKER) (test code = 3.8 mg/dL 2.3-4.7 604) Transmitter Engineer In Charge ID - SOTERO [id number] 04:55:00 Test Item Value Reference Range Interpretation Comments MAGNESIUM (BEAKER) (test code = 1.5 mg/dL 1.6-2.6 L 627) Transmitter Engineer In Charge ID - SOTERO [id number] 04:44:00 Test Item Value Reference Range Interpretation [...] = 413) RAD, CHEST, 1 VIEW, NON [id number] 03:59:00Reason for exam:->s/p intubation, s/p laparotomyShould this [...] MDReport Verified Date/Time: 10/18/2019 03:59:10 BLOOD GAS, [id number] 01:36:00 Test Item Value Reference Range Interpretation [...] (test code = 1819) 40.0 % POCT-GLUCOSE [id number] 00:54:00 Test Item Value Reference Range Interpretation Comments POC-GLUCOSE METER 152 mg/dL 70-110 H : [facility] ([facility] (test code = [place], 1538) [address]: Transmitter Engineer In Charge/Techni romain ID = [id number] for Ig weShasta BASIC METABOLIC [id number] 23:38:00 Test Item Value Reference Range Interpretation [...] S NOT APPLICABLE FOR DIALYSIS PATIEN TS. Transmitter Engineer In Charge ID - [id number] 22:52:00 Test Item Value Reference Range Interpretation Comments MAGNESIUM (BEAKER) 1.7 mg/dL 1.6-2.6 Specimen slightly (test code = 627) hemolyzed Transmitter Engineer In Charge ID - [id number] 22:52:00 Test Item Value Reference Range Interpretation Comments PHOSPHORUS (BEAKER) 4.3 mg/dL 2.3-4.7 Specimen slightly (test code = 604) hemolyzed Transmitter Engineer In Charge ID - [id number] 22:51:00 Test Item Value Reference Range Interpretation [...] (BEAKER) (test code = 413) BLOOD GAS, [id number] 22:34:00 Test Item Value Reference Range Interpretation [...] (test code = 1819) 40.0 % Prepare [id number] 21:19:00 Test Item Value Reference Range Interpretation Comments Unit ABO (test code = A Pos 8939264) UNIT NUMBER (test code = [id number] 934-0) Status (test code = RETURNED FROM ISSUE 4069538) Blood Bank Product (test FFP code = 2263) PRODUCT CODE (test code = I6755W17 933-2) [facility] CaliforniaPrepare [id number] 21:19:00 Test Item Value Reference Range Interpretation Comments Unit ABO (test code = O Pos 5529031) UNIT NUMBER (test code = [id number] 934-0) Status (test code = RETURNED FROM ISSUE 0213507) Blood Bank Product (test PLATELETS code = 2263) PRODUCT CODE (test code = U5131Z15 933-2) [facility] CaliforniaAPTT2020-09-11 20:02:00 Test Item Value Reference Range Interpretation Comments PARTIAL THROMBOPLASTIN TIME 38.7 seconds 22.5-36.0 H (BEAKER) (test code = 760) PROTHROMBIN TIME/[id number] 20:01:00 Test Item Value Reference Range Interpretation [...] is2.5-3.5 for patients wiht mechanical heart valves.Calcium, [id number] 19:56:00 Test Item Value Reference Range Interpretation Comments Calcium, Ion (test code = 1994-3) 1.65 mmol/L 1.12-1.27 pH, Blood (test code = 88654-4) 7.25 Lab Interpretation (test code = Abnormal 34112-8) [facility] CaliforniaGlucose-Stat [id number] 19:56:00 Test Item Value Reference Range Interpretation Comments Glucose (test code = 2345-7) 182 mg/dL 70-110 H Lab Interpretation (test code = Abnormal 24435-3) [facility] CaliforniaCALCIUM, [id number] 19:56:00 Test Item Value Reference Range Interpretation Comments CALCIUM IONIZED (BEAKER) (test 1.65 mmol/L 1.12-1.27 HH code = 698) PH, BLOOD (BEAKER) (test code = 7.25 1810) BLOOD GAS, [id number] 19:56:00 Test Item Value Reference Range Interpretation [...] (test code = 1819) 50.0 % GLUCOSE-STAT [id number] 19:56:00 Test Item Value Reference Range Interpretation Comments GLUCOSE RANDOM (BEAKER) (test code 182 mg/dL 70-110 H = 652) HGB/HCT (H&H)-Stat [id number] 19:55:00 Test Item Value Reference Range Interpretation Comments Hemoglobin (test code = 786-4) 13.9 g/dL 13-16.8 Hematocrit (test code = 4544-3) 41.0 % 40-50 Lab Interpretation (test code = Normal 12287-8) [facility] [id number] 19:55:00 Test Item Value Reference Range Interpretation Comments Sodium (test code = 2951-2) 135 meq/L 136-145 L Lab Interpretation (test code = Abnormal 31161-0) [facility] CaliforniaPotassium-Stat [id number] 19:55:00 Test Item Value Reference Range Interpretation Comments Potassium (test code = 2823-3) 4.5 meq/L 3.6-5.5 Lab Interpretation (test code = Normal 00990-8) [facility] NA-STAT [id number] 19:55:00 Test Item Value Reference Range Interpretation Comments SODIUM (BEAKER) (test code = 381) 135 meq/L 136-145 L POTASSIUM-STAT [id number] 19:55:00 Test Item Value Reference Range Interpretation Comments POTASSIUM (BEAKER) (test code = 4.5 meq/L 3.6-5.5 379) HGB/HCT (H&H) - STAT [id number] 19:55:00 Test Item Value Reference Range Interpretation Comments HEMOGLOBIN (BEAKER) (test code = 13.9 g/dL 13.0-16.8 410) HEMATOCRIT (BEAKER) (test code = 41.0 % 40.0-50.0 411) CALCIUM, [id number] 19:10:00 Test Item Value Reference Range Interpretation Comments CALCIUM IONIZED (BEAKER) (test 1.00 mmol/L 1.12-1.27 L code = 698) PH, BLOOD (BEAKER) (test code = 7.35 1810) BLOOD GAS, [id number] 19:09:00 Test Item Value Reference Range Interpretation [...] (test code = 1819) 50.0 % GLUCOSE-STAT [id number] 19:09:00 Test Item Value Reference Range Interpretation Comments GLUCOSE RANDOM (BEAKER) (test code 146 mg/dL 70-110 H = 652) HGB/HCT (H&H) - STAT [id number] 19:09:00 Test Item Value Reference Range Interpretation Comments HEMOGLOBIN (BEAKER) (test code = 12.0 g/dL 13.0-16.8 L 410) HEMATOCRIT (BEAKER) (test code = 35.0 % 40.0-50.0 L 411) SODIUM NA-STAT [id number] 19:08:00 Test Item Value Reference Range Interpretation Comments SODIUM (BEAKER) (test code = 381) 136 meq/L 136-145 POTASSIUM-STAT [id number] 19:08:00 Test Item Value Reference Range Interpretation Comments POTASSIUM (BEAKER) (test code = 3.8 meq/L 3.6-5.5 379) POTASSIUM-STAT [id number] 17:33:00 Test Item Value Reference Range Interpretation Comments POTASSIUM (BEAKER) (test code = 2.6 meq/L 3.6-5.5 LL 379) HGB/HCT (H&H) - STAT [id number] 17:25:00 Test Item Value Reference Range Interpretation Comments HEMOGLOBIN (BEAKER) (test code = 9.9 g/dL 13.0-16.8 L 410) HEMATOCRIT (BEAKER) (test code = 29.0 % 40.0-50.0 L 411) BLOOD GAS, [id number] 17:24:00 Test Item Value Reference Range Interpretation [...] (test code = 1819) 100.0 % GLUCOSE-STAT [id number] 17:24:00 Test Item Value Reference Range Interpretation Comments GLUCOSE RANDOM (BEAKER) (test code 130 mg/dL 70-110 H = 652) SODIUM NA-STAT [id number] 17:23:00 Test Item Value Reference Range Interpretation Comments SODIUM (BEAKER) (test code = 381) 136 meq/L 136-145 FL, FLUORO, NON-SPECIFIC, UP TO 1 [id number] 17:22:16Reason for exam:->cholangiogramFluoroscopic unit utilized for a procedure performed in the OR. No interpretation was requested. Refer to the operative report for findings. Refer to PACS for patient radiation dose information.FL fluoro non- specific up to 1 [id number] 17:14:00Interface, External Ris In - 10/21/2019 2:43 PM CDTFluoroscopic unit utilized for a procedure performed in the OR. No interpretation was requested. Refer to the operative report for findings. Referto PACS for patient radiation dose information.[facility] CaliforniaBLOOD GAS, [id number] 15:40:00 Test Item Value Reference Range Interpretation [...] (test code = 1819) 100.0 % POTASSIUM-STAT [id number] 15:40:00 Test Item Value Reference Range Interpretation Comments POTASSIUM (BEAKER) (test code = 3.1 meq/L 3.6-5.5 L 379) HGB/HCT (H&H) - STAT [id number] 15:40:00 Test Item Value Reference Range Interpretation Comments HEMOGLOBIN (BEAKER) (test code = 12.4 g/dL 13.0-16.8 L 410) HEMATOCRIT (BEAKER) (test code = 36.0 % 40.0-50.0 L 411) GLUCOSE-STAT [id number] 15:38:00 Test Item Value Reference Range Interpretation Comments GLUCOSE RANDOM (BEAKER) (test code 108 mg/dL 70-110 = 652) SODIUM NA-STAT [id number] 15:38:00 Test Item Value Reference Range Interpretation Comments SODIUM (BEAKER) (test code = 381) 139 meq/L 136-145 POCT-GLUCOSE [id number] 06:35:00 Test Item Value Reference Range Interpretation Comments POC-GLUCOSE METER 121 mg/dL 70-110 H : TESTED A T [facility] 6720 (BEAKER) (test code = CHANTE Mohamud [facility], 1538) [address]: Transmitter Engineer In Charge/Techni romain ID = [id number] for BALDWINCATINA POCT-GLUCOSE [id number] 01:25:00 Test Item Value Reference Range Interpretation Comments POC-GLUCOSE METER 88 mg/dL 70-110 : TESTED A T [facility] 6720 (BEAKER) (test code = [facility] [employer] [facility], 1538) [address]: Transmitter Engineer In Charge/Techni romain ID = [id number] for CATINA VEE CT, [id number] 13:25:003-phase: venous, arterial, and non-conUnlisted Reason for [...] and small bilateral pleural effusions. Signed: Jessenia Newmanort Verified Date/Time: 10/16/2019 13:25:44 Reading Location: [facility] B1 C013Y CT Body Reading Room CT abdomen/pelvis without & with IV [id number] 13:25:00Interface, External Ris In - 10/16/2019 1:27 [...] MDReport Verified Date/Time: 10/16/2019 13:25:44 Reading Location: [facility] C013Y CT Body Reading Room [facility] POCT-GLUCOSE [id number] 12:59:00 Test Item Value Reference Range Interpretation Comments POC-GLUCOSE METER 148 mg/dL 70-110 H : TESTED A T [facility] 6720 (BEAKER) (test code = [facility], 1538) [address]: Transmitter Engineer In Charge/Techni romain ID = [id number] for ANDERS BRADSHAW POCT-GLUCOSE [id number] 12:26:00 Test Item Value Reference Range Interpretation Comments POC-GLUCOSE METER 50 mg/dL 70-110 L : TESTED A T [facility] 6720 (BEAKER) (test code = [facility], 1538) [address]: Transmitter Engineer In Charge/Techni romain ID = [id number] for RODRIGUEZ S, PRATIK Urinalysis w/[id number] 09:32:00 Test Item Value Reference Range Interpretation Comments Color, UA (test code = Yellow 5778-6) Clarity, UA (test code = Hazy 5767-9) Specific [place], UA 1.010 1.001-1.035 (test code = 5811-5) pH, UA (test code = 6.5 5.0-8.0 5803-2) Protein, UA (test code = 20 mg/dL Negative A 51797-6) Glucose, UA (test code = Negative Negative 365) Ketones, UA (test code = 100 mg/dL Negative A 2514-8) Bilirubin, UA (test code Negative Negative = 07901-6) Blood, UA (test code = Negative Negative 05078-0) Nitrite, UA (test code = Negative Negative 5802-4) Leukocytes, UA (test code Negative Negative = 5799-2) Urobilinogen, UA (test 0.2 mg/dL 0.2-1 code = 36938-1) RBC, UA (test code = 0 /HPF 25895-2) WBC, UA (test code = 0 /HPF 5821-4) Bacteria, UA (test code = Occasional 95815-5) Mucus (test code = Occasional 8247-9) Squam Epithel, UA (test <1 /HPF code = 44848-4) Yeast (test code = Few 03337-0) Specimen Source (test code = 2795) ABAD (test code = ABAD) Transmitter Engineer In Charge ID - [auto]Transmitter Engineer In Charge ID - moe Lab Interpretation (test Abnormal code = 07741-2) [facility] CaliforniaURINALYSIS W/ [id number] 09:32:00 Test Item Value Reference Range Interpretation [...] = 1585) Few SOURCE(BEAKER) (test code = 2916) Transmitter Engineer In Charge ID - [auto]Transmitter Engineer In Charge ID - hankPOCT-GLUCOSE [id number] 09:15:00 Test Item Value Reference Range Interpretation Comments POC-GLUCOSE METER 180 mg/dL 70-110 H : TESTED A T [facility] 6720 (BEAKER) (test code = [facility], 1538) [address]: Transmitter Engineer In Charge/Techni romain ID = [id number] for SHABANA MEDINA, GEORGIACHEL POCT-GLUCOSE [id number] 08:42:00 Test Item Value Reference Range Interpretation Comments POC-GLUCOSE METER 50 mg/dL 70-110 L : TESTED A T [facility] 6720 (BEAKER) (test code = [facility], 1538) [address]: Transmitter Engineer In Charge/Techni romain ID = [id number] for AKOSUA GOMES, RITCHEL COMPREHENSIVE METABOLIC [id number] 07:47:00 Test Item Value Reference Range Interpretation [...] S NOT APPLICABLE FOR DIALYSIS PATIEN TS. Transmitter Engineer In Charge ID - PIAYA [id number] 06:14:00 Test Item Value Reference Range Interpretation [...] 0-0 (test code = 413) HEPATIC FUNCTION [id number] 14:38:00 Test Item Value Reference Range Interpretation [...] (test code = 11 U/L 6-55 347) Transmitter Engineer In Charge ID - CARLOS [facility] METABOLIC [id number] 14:38:00 Test Item Value Reference Range Interpretation [...] S NOT APPLICABLE FOR DIALYSIS PATIEN TS. Transmitter Engineer In Charge ID - CARLOS CSARS-COV2/RT-PCR ([facility])2019-10-14 11:39:00 Test Item Value Reference Range Interpretation Comments SARS-COV2/RT-PCR (test Negative Not Detected, Negative, code = 4186315) See external report for linked test SARS-COV-2 PERFORMING LAB [facility] ERYN (test code = 3861991) Negative result for this test determines that [...] 564(g) of the Act.Fact Sheet for Healthcare Providers:https://www.[employer]/sites/default/files/product/documents/Fact_Shee x_DE_Smlsrahew_Czec_QSUE-OxZ-4.pdfFact Sheet for Healthcare Patients:https://www.Swyft/sites/default/files/product/ documents/Xwuo_Vxnkl_Kiyqrltk_Kukd_VZEW-KuV-4.pdfPerforming Laboratory:[facility], [place] [address]TSU, ABDOMEN/KUB, 1 VIEW [id number] 09:37:00Reason for exam:->Eval for persistence of CBD [...] MDReport Verified Date/Time: 10/14/2019 09:37:48 Reading Location: [facility] Diagnostic Imaging Reading Room - [place] [address] XR abdomen / KUB 1 [id number] 09:37:00Interface, External Ris In - 10/14/2019 9:39 AM CDTFINAL REPORT TECHNIQUE: Frontal view of the abdomen. INDICATION: 29-year-old man with common bile duct stent. COMPARISON: None. IMPRESSION:No stent identified in the expected region of the bile ducts. Nonobstructive bowel gas pattern. Bones are unremarkable. Retained contrast in the bladder. Clip projects over the left upper quadrant. Signed: Adán Herrmann MDRwildort Verified Date/Time: 10/14/2019 09:37:48 Reading Location:[facility] Diagnostic Imaging Reading Room - [place] [address] [address] [facility] 2019-10[facility]14 09:18:00 Test Item Value Reference Range Interpretation Comments Triglycerides (test 66 mg/dL code = 2571-8) ABAD (test code = ABAD) TRIGLYCERIDE REFERENCE RANGELow Risk <150Borderline Risk 150-199High Risk 200-499Very High Risk >=500Operator ID - CARLOS Jacobsen [facility] CenterLIPASE2020-[facility]-08 09:18:00 Test Item Value Reference Range Interpretation Comments LIPASE (BEAKER) (test code = 749) 390 U/L 8-78 H Transmitter Engineer In Charge ID - CARLOS [id number] 09:18:00 Test Item Value Reference Range Interpretation Comments TRIGLYCERIDES (BEAKER) (test code = 66 mg/dL 540) TRIGLYCERIDE REFERENCE RANGELow Risk <150Borderline Risk 150-199High Risk 200-499Very High Risk>=500Operator ID - CARLOS [id number] 08:41:00 Test Item Value Reference Range Interpretation Comments MAGNESIUM (BEAKER) (test code = 1.6 mg/dL 1.6-2.6 627) Transmitter Engineer In Charge ID - CARLOS CBASIC METABOLIC [id number] 08:41:00 Test Item Value Reference Range Interpretation [...] S NOT APPLICABLE FOR DIALYSIS PATIEN TS. Transmitter Engineer In Charge ID - CARLOS CHEPATIC FUNCTION [id number] 08:41:00 Test Item Value Reference Range Interpretation [...] (test code = 14 U/L 6-55 347) Transmitter Engineer In Charge ID - CARLOS CIron, TIBC, % sat. (without ferritin)2019-10-14 08:38:00 Test Item Value Reference Range Interpretation Comments Iron (test code = 2498-4) 32.0 ug/dL 40-160 L TIBC (test code = 2500-7) 214 ug/dL 250-450 L Iron % Saturation (test 15 % 20-55 L code = 2502-3) ABAD (test code = ABAD) Transmitter Engineer In Charge ID - CARLOS C Lab Interpretation (test Abnormal code = 77652-1) [facility], % SAT. (WITHOUT FERRITIN)2019-10-14 08:38:00 Test Item Value Reference Range Interpretation Comments IRON (BEAKER) (test code = 547) 32.0 ug/dL 40.0-160.0 L TOTAL IRON BINDING CAPACITY 214 ug/dL 250-450 L (BEAKER) (test code = 769) IRON % SATURATION (2) (BEAKER) 15 % 20-55 L (test code = 2590) Transmitter Engineer In Charge ID - CARLOS CCBC W/PLT COUNT & AUTO [id number] 05:36:00 Test Item Value Reference Range Interpretation [...] 0-1 PERCENT (BEAKER) (test code = 2801) PT/[id number] 05:24:00 Test Item Value Reference Range Interpretation [...] is2.5-3.5 for patients wiht mechanical heart valves.CHEM [id number] 10:48:0017 [facility] HermannCHEM [id number] 10:48:00403Jsyjamuo HermannCHEM PANEL 2019-08-31 10:48:001Memorial HermannCHEM [id number] 10:48:000.50[facility]annCHEM QLAWY9641-92-47 10:48:51473Vomqmxzm HermannCHEM WXHLV3192-08-82 10:48:003.1[facility]annCHEM NNODH3566-32-06 10:48:82163Ezwulifa HermannCHEM OVMHD8086-89-50 10:48:0025[facility]annCHEM CCRCJ5591-33-46 10:48:0014.1 [facility] HermannCHEM HLKFS5829-81-11 10:48:007.4[facility] HermannCHEM PANEL 2019-08-31 10:48:69496Bhrecbbs HermannCHEM QXRGI3335-08-45 10:48:67869Erozfgmr ZqgamyuAQBKSNAADE5104-05-56 10:48:005.9[facility] VsoogvaJRSJEAIELK0016-01-98 10:48:003.00[facility] UpkghcoRLUSUFBOCP3553-51-35 10:48:009.1[facility] ZNZVDSEFHU9038-37-42 10:48:0026.4[facility] PqwezlcNDCEYCCBER0506-20-84 10:48:00 88.1[facility] ZdkkshkDWTJKRZMNY5870-71-05 10:48:00 Test Item Value Reference Range Interpretation Comments MCH (test code = MCH) 30.2 pg 27.0-31.0 [facility] BejymvjPMQIPCSEEP6309-32-28 10:48:0034.3[facility] HermannHEMATOLOGY 2019-08-31 10:48:0014.6[facility] DoxzlxcRTVZBHIFRB8798-74-93 10:48:40689Vpsdyviy DlniwjeXHPACWINOE3160-81-34 10:48:008.8[facility] XqjozzwHZWQEWYMNV7532-73-90 10:48:0071.9[facility] ClqcelhEFKXYGKWDF0864-53-09 10:48:0013.3[facility] XQVJJZWZUF6977-89-61 10:48:0011.1[facility] LqpiuywONUDYNYFXZ0223-98-94 10:48:00 3.1[facility] CsopsntZYIZUNHKOD6078-22-46 10:48:000.6[facility]annHEMATOLOGY 2019-08-31 10:48:004.3[facility] UxybletARFIQTWNLS8558-56-33 10:48:000.8[facility] OntnabxYTMXBAIUXO6679-19-57 10:48:000.7[facility] KlyxbkfNAIFUAUDHG8296-87-14 10:48:000.2[facility] FiukivkQQNFVDHWFO2449-47-64 10:48:000.0[facility]annCHEM QSOBT6568-32-96 10:48:0017[facility]annCHEM XFOAY6185-11-52 10:48:88682 [facility]annCHE[facility] URYPW6800-01-86 10:48:001[facility]annCHEM PANEL 2019-08-31 10:48:000.50[facility]annCHEM RBWUQ2191-93-46 10:48:74293Iymljicy HermannCHEM CDLAX7054-32-94 10:48:003.1[facility]annCHEM GAPAX3248-92-51 10:48:72798Ozkmgtso HermannCHEM PFGXC6203-00-90 10:48:0025[facility]annCHEM GESYS8438-29-66 10:48:0014.1[facility]annCHEM GCUXU8657-44-62 10:48:007.4 [facility]annCHEM ZPRME7695-89-88 10:48:17687Vwhgwzwt HermannCHEM PANEL 2019-08-31 10:48:77454Fdmdpwjs SllxqfhATWYLRFXVT4684-04-68 10:48:005.9[facility] EbesuyhZDQJKPFYKG5381-21-51 10:48:003.00[facility] LzqiziuCWCMUBAZNA9661-09-64 10:48:009.1[facility] XnyfhoxWOBAIGSLHU5232-05-21 10:48:0026.4[facility] NBTWZVRCDE7219-90-64 10:48:0088.1[facility] WtwqnepXFLPXMVCON1582-10-68 10:48:00 Test Item Value Reference Range Interpretation Comments MCH (test code = MCH) 30.2 pg 27.0-31.0 [facility] VabzgulVSZUXOHIMW9462-89-93 10:48:0034.3[facility] HermannHEMATOLOGY 2019-08-31 10:48:0014.6[facility] GlyfnorMJQHUBJYJN0760-93-39 10:48:99381Ymbeyrlh SjrsqgaUTTBJAQQKC2711-87-16 10:48:008.8[facility] AkfptunPMTPZDFETU0915-83-05 10:48:0071.9[facility] SnqjrfyXJBRRHUDEN8052-47-84 10:48:0013.3[facility] XKQZGKOMLK0358-27-77 10:48:0011.1[facility] BndgprjJOSDSOHRTW0691-80-24 10:48:00 3.1[facility] SfqklkxJZCBICAEIP5413-55-40 10:48:000.6[facility]annHEMATOLOGY 2019-08-31 10:48:004.3[facility] FnmkkelZSFFWEGRCH5785-50-00 10:48:000.8[facility] DutoyxsHVCVTALBOR0467-91-07 10:48:000.7[facility] AtijqiiPBYQAOQIPG3714-68-86 10:48:000.2[facility] ApwnzbsOJXYBTAQDU4664-54-26 10:48:000.0[facility] HermannCHEM XSBWE2268-34-15 09:13:0057[facility]annCHEM QRZZJ6513-17-12 09:13:002[facility]annCHEM VUIEV7363-95-87 09:13:000.40[facility]annCHEM OYFPB2027-66-82 09:13:02025Modwwpxo HermannCHEM IPQZF5671-58-10 09:13:003.5[facility]annCHEM BIGQI4027-60-67 09:13:70532Hhudxjsu HermannCHEM OWZGC1101-14-07 09:13:0022 [facility]annCHEM GUJPD3408-82-01 09:13:007.7[facility]annCHEM PANEL 2019-08-30 09:13:0015.5[facility]annCHEM CECHU7977-91-27 09:13:61555Gzezdrlv HermannCHEM FIVGW3763-61-55 09:13:00<0.05[facility] YpkzpbySNIZDKUBYN4236-02-41 09:13:006.2[facility] ZyqysnmRTKZIDJZZQ8287-56-56 09:13:002.92[facility] YSFSLSVYUG9949-81-33 09:13:008.5[facility] IsfmvbtGRAVWOCJBK2243-45-41 09:13:00 26.2[facility] WjfgahgHFGYJBHOJW2561-18-09 09:13:0089.6[facility]annHEMATOLOGY 2019-08-30 09:13:00 Test Item Value Reference Range Interpretation Comments MCH (test code = MCH) 29.0 pg 27.0-31.0 [facility] CkyjgyxYXVPJQYLQG4575-32-81 09:13:0032.4[facility] HermannHEMATOLOGY 2019-08-30 09:13:0015.0[facility] LugbbzkCDCHNHTFWE7429-14-85 09:13:78594Verbogyc UdmesrlTYJQHYTOXP8905-49-80 09:13:008.6[facility] XdtwkdzTKTCDYNRFS8607-12-84 09:13:0077.2[facility] BhkpydlRCKDBKLKJM6247-04-19 09:13:0011.4[facility] SDLEZPIXBO1254-51-73 09:13:009.1[facility] MdmjlqxQESDANPXYT4042-13-61 09:13:001.8 [facility] OdzvcpqLAUYIWXVUJ2959-74-93 09:13:000.5[facility] HermannHEMATOLOGY 2019-08-30 09:13:004.7[facility] PkstjuvVRESMBUAXP6949-04-48 09:13:000.7[facility] SueplhhUFDNMASHAI6184-90-12 09:13:000.6[facility] RtsozqkXNKDNYVMAJ3444-77-01 09:13:000.1[facility] HermannCHEM DTNFZ8369-14-42 09:13:0057[facility]annCHEM VMEHQ8283-95-86 09:13:002[facility]annCHEM HJAZI0285-60-29 09:13:000.40 [facility]annCHEM WAURY2292-38-12 09:13:19153Uvcffhoy HermannCHEM PANEL 2019-08-30 09:13:003.5[facility]annCHEM CZPVC5721-86-70 09:13:77785Qmszkrjy HermannCHEM NTSSZ5188-13-92 09:13:0022[facility]annCHEM CNFLI0764-33-60 09:13:007.7[facility]annCHEM IBFQB3323-00-25 09:13:0015.5[facility]annCHEM KHDTD2090-18-95 09:13:29724Pezbkkqk HermannCHEM VDRQY1353-56-79 09:13:00 <0.05[facility] MokbellQJIJAFURFZ6980-03-38 09:13:006.2[facility] XSKWJGOCJV7663-30-98 09:13:002.92[facility] UssztmaYZZKKQCRZE6589-47-22 09:13:00 8.5[facility] LurpxpsGFWIGHCYKK7808-99-53 09:13:0026.2[facility]annHEMATOLOGY 2019-08-30 09:13:0089.6[facility] ClphrwuEGLPOJBBUQ5910-28-76 09:13:00 Test Item Value Reference Range Interpretation Comments MCH (test code = MCH) 29.0 pg 27.0-31.0 [facility] KrdyvwoCEVWRVLAFN6715-86-40 09:13:0032.4[facility] HermannHEMATOLOGY 2019-08-30 09:13:0015.0[facility] BirtuptURGHFDHGBE4954-09-40 09:13:05010Gcfsoqzu BahdzuyDNIRIJCWKO6677-62-80 09:13:008.6[facility] HugnqbvIBFUHOBAKW8599-86-70 09:13:0077.2[facility] OajysgePNOTRDBUVD4911-55-09 09:13:0011.4[facility] UDGZOCAMTN1660-83-54 09:13:009.1[facility] AkvycvkNPLBGMWHPS8116-40-90 09:13:001.8 [facility] XtlxalfJKAIYDGDYW4144-63-87 09:13:000.5[facility] HermannHEMATOLOGY 2019-08-30 09:13:004.7[facility] UhdjyskALZNIRQFEB0732-66-46 09:13:000.7[facility] BkynabeJLPREGRKZQ0530-13-81 09:13:000.6[facility] ZjpyfcrHUBLMCAJPR4238-12-25 09:13:000.1[facility] HbuwksnFSKIVOJFVT9353-35-04 11:29:00Not Detected (08/29/19 6:29 AM)[facility] ByfqfobVCBVJSQQZV2772-95-00 11:29:00Not Detected (08/29/19 6:29 AM)[facility]annCHEM ADOVX6712-68-52 09:30:0071[facility] HermannCHEM PANEL 2019-08-29 09:30:003[facility]annCHEM EHQNA3406-56-83 09:30:000.50[facility]annCHEM NMLZT7766-35-14 09:30:69931Dzruazdg HermannCHEM CMDER9937-19-11 09:30:003.3[facility]annCHEM UCJIX3607-86-68 09:30:53457Rgeqerkm HermannCHEM IYYPZ9249-37-12 09:30:0026[facility]annCHEM EQHLX0574-67-78 09:30:008.2 [facility]annCHE[facility] YIGZC0401-59-20 09:30:0010.3[facility] HermannCHEM PANEL 2019-08-29 09:30:27733Zjeibjds MpwaqnoWHUUFPMWUJ2169-86-02 09:30:005.2[facility] FcmmoanOMVQEGOWLA6842-97-79 09:30:002.91[facility] TrkrxupDOBUYISNGL8861-25-93 09:30:008.8[facility] HvfcolxBFQHZLFCHF4984-72-81 09:30:0025.8[facility] BHBEUVTILS0002-16-35 09:30:0088.8[facility] ZuxthzyOTYYOAQGNU1384-90-28 09:30:00 Test Item Value Reference Range Interpretation Comments MCH (test code = MCH) 30.3 pg 27.0-31.0 [facility] UpjcmspCWRNEZWMSE3808-97-22 09:30:0034.1[facility]annHEMATOLOGY 2019-08-29 09:30:0014.4[facility] PtxkkkzCPIWMFJZEE1062-70-73 09:30:61802Qrxhmarw TwoltbcLGIXHHVIDB9617-82-10 09:30:008.6[facility] WlvnosgZKZJZTHYPJ0252-61-13 09:30:00Normal (08/29/19 4:30 AM)[facility] PbtwxtoWHKKBPJUHB9828-59-84 09:30:00 Normal (08/29/19 4:30 AM)[facility] MopnzefLBYTLIUOSB4438-66-19 09:30:0070.7 [facility] YucpcncBRLPLWIHGM8176-77-23 09:30:0017.3[facility] HermannHEMATOLOGY 2019-08-29 09:30:0010.4[facility] UpivdjcOFIREWGZJY5069-99-13 09:30:001.0[facility] YtvbenfHRLMURDULN6609-39-67 09:30:000.6[facility] XkvxhxwRULNZMIBAT2956-24-12 09:30:003.6[facility] ZdfyegpSVWCSIOXGU5263-30-12 09:30:000.9[facility] ISTENJDSJB4409-36-94 09:30:000.5[facility] XmuexxgQNUFEGQZJD7988-39-30 09:30:000.1 [facility]annCHEM DEVAL8480-06-02 09:30:0071[facility] HermannCHEM PANEL 2019-08-29 09:30:003[facility]annCHEM THXBU3370-41-66 09:30:000.50[facility]annCHEM KVMIC6029-47-95 09:30:06435Unptjeiv HermannCHEM ATVMY1830-57-64 09:30:003.3[facility]annCHEM YWOAB0943-40-05 09:30:10099Olaelekq HermannCHEM NOCGR7718-25-84 09:30:0026[facility]annCHEM ALBBU7413-11-01 09:30:008.2 [facility]annCHEM NYHRP7706-63-74 09:30:0010.3[facility]annCHEM PANEL 2019-08-29 09:30:72120Qdhbqovf UltddjtOHPPXVETJP0970-35-72 09:30:005.2[facility] VzwnxhaNASQREFJPB4201-20-22 09:30:002.91[facility] NsuxryfVZCJAOAHCO9443-77-92 09:30:008.8[facility] VwdspwsZJQZYEOILZ5193-57-92 09:30:0025.8[facility] AEOLEDAMNA2140-64-85 09:30:0088.8[facility] UcehgnjCVVMATSYVU4968-97-79 09:30:00 Test Item Value Reference Range Interpretation Comments MCH (test code = MCH) 30.3 pg 27.0-31.0 [facility] GfdwikyQFDTJKPHLF2285-73-65 09:30:0034.1[facility] HermannHEMATOLOGY 2019-08-29 09:30:0014.4[facility] PqqkcrsFXORYRKDQN6907-48-42 09:30:59123Hyzwqcuf QdtcdnkWCZCNIAINF9373-84-12 09:30:008.6[facility] YzyzoksZHWQTSYKVZ6919-01-70 09:30:00Normal (08/29/19 4:30 AM)[facility] SmbmxjtCDXYPUNYFD8555-49-34 09:30:00 Normal (08/29/19 4:30 AM)[facility] EbmhifuPOYVGLZYHI7819-00-88 09:30:0070.7 [facility] BokoextUBCSWOXSVW9286-13-94 09:30:0017.3[facility] HermannHEMATOLOGY 2019-08-29 09:30:0010.4[facility] EgeqwgaMLVHVWKMZG1433-61-30 09:30:001.0[facility] PmnsjhpOILSOINMDJ9085-07-39 09:30:000.6[facility] FsaqrbdILBPLKHSVB2993-01-67 09:30:003.6[facility] VgpcsjxFRQTRDXFAL0870-45-30 09:30:000.9[facility] AQBCUNLTOW5220-60-59 09:30:000.5[facility] SwcibqsPYGIVCQFSZ0912-80-56 09:30:000.1 [facility]BL[facility] B[facility] BRHYJAD4480-31-19 10:41:00Product available 4(08/28/19 5:41 AM)[facility] FPEKRJA9481-24-58 10:41:00Product available 4(08/28/19 5:41 AM)[facility] MNMZRZF8731-60-22 08:37:00Negative (08/28/19 3:37 AM)[facility] YKPXU6569-29-89 08:37:005.1[facility]annCHEM ZFMEY8787-91-20 08:37:001.2[facility] HermannCHEM IIIVK7544-78-19 08:37:007[facility]annCHEM TXTMA0719-17-34 08:37:0014[facility]annCHEM TRVLT4481-78-77 08:37:0088[facility]annCHEM OCQJU7184-95-38 08:37:000.3 [facility] YCGOX8105-27-42 08:37:00 Test Item Value Reference Range Interpretation Comments B/C Ratio (test code = B/C Ratio) 12 1 6-25 [facility]CHE[facility] WCOAM4507-17-06 08:37:003.9[facility]annCHEM PANEL 2019-08-28 08:37:00 Test Item Value Reference Range Interpretation Comments A/G Ratio (test code = A/G Ratio) 0.3 1 0.7-1.6 [facility] CenterBxjqvheYRXMHEMESI9974-33-39 08:37:00 Test Item Value Reference Range Interpretation Comments PT (test code = PT) 17.3 s 12.0-14.7 [facility] CenterAgjutulGGYQJLWMRM2440-80-71 08:37:00 Test Item Value Reference Range Interpretation Comments INR (test code = INR) 1.40 1 0.85-1.17 [facility] CenterGjfdqusALYTJNUVAA5556-59-20 08:37:00 Test Item Value Reference Range Interpretation Comments PTT (test code = PTT) 45.5 s 22.9-35.8 [facility] CenterDglrbxrCTJAXBQPUU4073-46-45 08:37:00Normal (08/28/19 3:37 AM)[facility] CenterEqkghmfGRLFUCFGZT9305-09-85 08:37:00Normal (08/28/19 3:37 AM)[facility] KQRTEZHIWY3970-60-38 08:37:000.0[facility]BL[facility] CHJZETZ2212-20-38 08:37:00Negative (08/28/19 3:37 AM)[facility]annCHEM BCJTK1242-95-81 08:37:00 5.1[facility] HermannCHEM IRHMG0513-71-23 08:37:001.2[facility]annCHEM PANEL 2019-08-28 08:37:007[facility] HermannCHEM NYNDG5992-96-57 08:37:0014[facility]annCHEM ZOFSO9930-08-22 08:37:0088[facility] HermannCHEM LLOXJ4715-16-24 08:37:000.3[facility] HermannCHEM SVQVN2212-39-27 08:37:00 Test Item Value Reference Range Interpretation Comments B/C Ratio (test code = B/C Ratio) 12 1 6-25 [facility]annCHEM SZEQQ7893-35-57 08:37:003.9[facility] HermannCHEM PANEL 2019-08-28 08:37:00 Test Item Value Reference Range Interpretation Comments A/G Ratio (test code = A/G Ratio) 0.3 1 0.7-1.6 [facility] KimpwptLAXNETTRBH9389-38-84 08:37:00 Test Item Value Reference Range Interpretation Comments PT (test code = PT) 17.3 s 12.0-14.7 [facility] UnmphxvTSOIRYQCMV8901-16-78 08:37:00 Test Item Value Reference Range Interpretation Comments INR (test code = INR) 1.40 1 0.85-1.17 [facility] ThhsshlOXOXCRKBSN0896-06-04 08:37:00 Test Item Value Reference Range Interpretation Comments PTT (test code = PTT) 45.5 s 22.9-35.8 [facility] CjtlroiPMPEADQDRS1590-93-26 08:37:00Normal (08/28/19 3:37 AM)[facility] UpzkajrCOCPAVQGYP6295-54-26 08:37:00Normal (08/28/19 3:37 AM)[facility] JECNCPBHNV1889-69-57 08:37:000.0[facility] HermannSARS-COV2/RT-PCR ([facility])2019-08-27 00:51:00 Test Item Value Reference Range Interpretation Comments SARS-COV2/RT-PCR (test Not Detected Not Detected, Negative, code = 0719638) See external report for linked test SARS-COV-2 PERFORMING [facility] (test code = 3860231) Negative results do not preclude SARS-CoV-2 infection [...] of the Act.Fact Sheet for Healthcare Pro viders:https://www.[employer]/Documents/Xpert%20Xpress%20SARS%20CoV-2/Fact%20Sh eets/3023802%48UACQ-PTJ-1%20HEALTHCARE%20PROVIDERS%20FACT%20SHEET.pdfFact Sheet for Healthcare Patients:https://www.[employer]/Documents/Xpert%20Xpress%20SARS%20CoV-2/Fact%20Sheets/3023801%20SARS-COV -2%20PATIENT%20FACT%20SHEET.pdfPerforming Laboratory:[facility], [place] [address]Jarlqvzr6722-19-91 17:29:00 Test Item Value Reference Range Interpretation Comments Case Report (test code Medical Cytology = 104) Report Case: [id number] Authorizing Provider: Uriah Childs Collected: 02/15/2019 1226 Ordering Location: [address] Received: 02/15/2019 1529 Service Pathologist: Nereyda Causey MD Specimen: Common Bile Duct, Distal bile duct brushing in CRR DIAGNOSIS (test code = n1pxjVXcJUWll3eySFQvhA 3220) FuZzEwMzNcZnRuYmpcdWMx VBcyjgSvAHrzm0DfO0ShFb AwMFxhbnNpXGRlZmxhbmcx RLXaZZH5jyNsIEIfVKlfWB IvBFchNx9bgBNxoFpuUlPl TDEzh6rvfkPAxzahsJv9y0 uyWNStWfF4eOGzOLvqL1sx viBhdLSuMXTzMLg4aT63QZ VtsO5vzIWiWFnjfeQzCtS4 YNcsSJNcEsE7KWMevZVwYH QbO0vdRVLlFOhjYLLrMGhu tYSjZPW9gWptt8L2sLDbsW LgrNwoLfCiVdTjTXZSo2Tj TEv2gTcdA9SrVOHpXjA0sS QgUGFyYWdyYXBoIEZvbnQ7 yG70XPbdlqU7gFEaz0Lgo6 4mw372dY5hzLBkMDK6DSEl UXEetJHbDZHqYSO3VBIenL LcM0m3LsNwnDVyB4I5RrEe xKUrR5R0HlKqrIHmJ7X5La QvgZAdDDKsvZHtBt4zkWDu wOAdnq3srz42GZP9x2HywH cjCTZ0PQL1CgZhGw7sfMAt MKAsDC6yOkYrtOIgHURvgx 19vUapJUfwffUqmQ1oKsRi DPFvtAOvJOTqOI2mcASxVK NqlU7nwafjKXVmRySpkjhs RWHfnDgjmoQjVa4wlCpbGR Q8ICugY0btoF5pOiD5MGqc H1eeeV3hQZm2WBwepGD8YI WupT4kXX8timucs9tgClBy LK0ginpjl6pqIiTcCJ8rpy j8l8mgNxQyJG3eaiilh1vn NzIwXGhlYWRlcnkwXGZvb3 IhlzmmPASth6IiP3JuyWox Y82fyFesC51lMAIbfFmxrY 7snIelbL8wJgYsElUkMXks bFxwbGFpblxmMVxmczIwXG woalltEBLjXGiwS8fyQzYp CWNwzAwkEHbjg4WoGNKwIL KfGrBcM94JLR7ZFOMTRGWp RFVDVCBCUlVTSElORyAoQ1 pBL0FTGA1SQRAQRCMTQTkS JGZSC3JWPNmhaSirQKHaGM XeSJ3ARVCJOEDNSAyYJGRU SPWUKQlBPqGEAnPLDZ2ECX BGQVZPUiBSRUFDVElWRSAo U0HZYJPRUK4JYzKcRRSpzg 25PRA5BgRnw1S6QZZ3LKYx HKCbv2wwRHQpkWFpMqZzDk NcZnRuYmpcdWMxXGRlZmYw i3zef337cWQnc6zuGTMpXi G2aHLfMGRdaDSiH155PMFg UPqrw9mhb7ZbCBKvcJXpa7 A6FXHGgexrlOc2nMqbO38w p2R4SdnmD9rwGMEuQLLeT3 PrJW4lYGOwOfh5FUJ1ENX1 EASmQTTvO9RhUG4oVLPhbN RkPLa1b1cfeTcbFZRcZFQ4 v4egWIgpviNrJJ7rcg9knN t9k2qovbVlATAfYSHgpSSV ICEmY3AauFbuFo0biLs8hE znRumpAOE4Aae6MK7jym60 slu7cCdwFHTuslmkGeJ6SG viSOLuythaSAh7VKkvOCQr tIE9YDRlcKLjW4VsYCQzOE 0krlw1YFM9ZEcaIDVpEyV0 NDBcaGVhZGVyeTcyMFxmb2 00ZGD0JqAgLG3wH5Suv3H8 jB0unIGyIVYklIMgRaJdDD Wrns5pvYZjHBxfq6ZpXGE9 wtA5yMYlwEYlAFCxWqL6FI sdJI4tdx76TFZpDAR1dw9f bGNccGdicmRyaGVhZFxwZ2 PnXQHvd982OUMkP4CfCWVt x4P0nfEiUrRvKTKjgIT4ap B2EDHyGG3bftzfw6lkOGur YTnqMVBfuoL6rwM3AHNplZ TsA7AfwT6uWQVeFU9wrxyt a2usQCI9ALvfALTgIEA0Jo IeVWQwg2Dbuuw0KaXuf7Qs aBNhNAtnQ06ra927AFBuie ZvS6ncbPYkkgjgwZDuztah ZOonueU6BCPwQJscsbliOD MkJXlhP8avAmYaNQDxtHtu VAkkk1AlMLBlVCGgNkPjjA XjHTMzQzm0FPEodNZwXVMb CvXyR8rjixjzTiWCAGDxc3 giA8ecmDZIbXJwK5VeSIbm khIgUDbxXPewYQG9SCC1Yl 25IlT5HJYzru55 COMMENT (test code = x4pduLVwMDKetEKxFqMkFX 3359) MkLAVhl5dgEYPuhFMuSsQn MzNcZnRuYmpcdWMxXGRlZm Wap2oou802pFZrh8ziTKWr IgN6aPJxYSAoaBVlF436t6 uuh9gnhjMmuUV3ZQDyBDT4 ENzkoyWqcqA5NLqqdUYxWu O6UEmlejAfBKolcaFrzbQz Ned8TGZvR600JDL1xSkni4 myUAQ5RRXnIETgUeAuHa2m uCQjR394EVJgGBVRRGFrbX a6YCRsmkAojzGgsSBZx529 U176e2ygVKWbrqHijCzZce aii8peL866CRVexWNlbpHm WjAbCNDkcSQidMR6OFIhOX 8gludkDfNlTW3xxinfMiIs NY3pqem6OoWdTQ3ewyupTu IkWJaoEYGpwourBXChf7Wz zulyDU5uR5Tce5V8rF0deD FcETCqgQEpWyXsEXEuwh4z bQUeQKwyc5PxVOB3neM5uW AwsEPsTHSaFY74Kgoly9Hu TawxDOF9UVTabcSju2Dsf8 wiIqXfdmWoI1rvF3NpPTYv MJCiMYRvYePpcrDfp0Zvg2 GooRDgqQw3c5lzTNHbWKWv wZcmr6zuZFG9CJJmK8K1kA Kbz9knOVeaNTEoyTF5bbiu KJhwWZAangB7onvhKFppSF XmaHR9pipmTKtvYGIzWmB9 vhfbMJivILPgFDG1FGgph5 96LAU0MTaaHlbpRFviJTAh bmNvbnRccGduZGVjXHBsYW luXHBsYWluXGYwXGZzMjRc yObmlRudtO7uAcPsLpDmED puER8yPETcN2oesGMsZWUg TNAbQ8poOlDmsN6ruIouRZ xmczIwIEZldyBtaWxkbHkg WHT3yMcwUTclN8PjoBMyVN ArQWHhMRUpyiFnJZ6gKCyx xAkcdGruVBlfl1Hsjyvhj5 Lro2YafjVrSBKdxoPgL3Lw amMbzJTlK7WetpHfyaQyHC ZvcmVkLiBDbGluaWNhbCBj n4CfLBtmhGaqdwVvycGhAN BvmR4ttsNfAK9trJGssX== CPT Code(s) (test code p2peeCNtTZTthBStUvAyWK = 3357) HrIVPkw9jtEHSzvVSiHjAx MzNcZnRuYmpcdWMxXGRlZm Dsl2cpp772bBMaj0nyXVEg JsY9eJPpMBFbvRSdL723g8 suv1xuwxHseIT1NKYrNOU7 TScwblOdyvQ3QOohgTXmUe P3EDzjdiWsUSjykhTngxYh Jaf8JMQdU457VXV0xEqth7 vlSRS6PZTyBMWaPaAuGy9q sTZgT868BEAwYIWGDOVpjT g2BYVxzlEnstVsnRQBy831 M998v4nzIDZkzuAmsJtIaq njz0gnC987DUPifHZdxiLa MhVmCBBzwXBteDM6IVHiIQ 1uqpduOxOoKN2kitnjOvKp LT8qpvm8WaOeXA2agwilUc PtHUjmZTPdyjgiQPHsf3Qr uutdMV8oX2Kzn5H5zU2ctH MhLLIdtZLfVlWnDZCopw3u lKUuROras5HyHFH8rkT7lT EodKGvTFVaWM83Zufww3Tn PilyARJ1CVAfaaPwb4Czg4 siVoRihjRjJ5wbA6ZiGUCa ICLaEYUhGwXcecZoi1Fnc1 AcoGOttCx0l9rsBPIrWDSd lBjji3nvDPJ1JJKyL4Q3fH Uhn3jnCBelKCQmzHL6scck OXxnQDIwjvJ6czdkYXsmRA KexDC3yjjeAJwvGOAaZkQ7 bgcwQTdgKOMlKFQ0LZjnh9 23OFD8RQlwLxmdSBqrXINc bmNvbnRccGduZGVjXHBsYW luXHBsYWluXGYwXGZzMjRc gVutcZfdhB6eUhQcGqZrAD oiOV2qHLMlF9bvuCYwBMOg PICpQ0pmNjYbgW6ytGslZO elerQyNVt9UQU0KXN5DBHx NVxwYXJ9 CLINICAL DATA (test j2sefMUkPXFetDSrBeFeZT code = 3355) KiLHCju5yrKUAghUFqYwXl MzNcZnRuYmpcdWMxXGRlZm Qxu1ltl294wPVwi5kfHDJw VmY2cWEhQPQbxEAxA408CE EnTCczo1rjy0NpCOBezITh t8A0GBOEteugzOs0wOwhA2 3rp3S4JdydT0bfQGGiHKEc A0AgIF7kUMAxGhw9UZB4ES D4IXLjAYRpL5KcMW6lURXs tOUcWUj1f8gdhAkyBBRfAI L0b3gmGOueakGdXM8evn4k sWt4r3siucNrZIUrYHItqQ YCFTSxY6TbwOgnGv1bgSo2 sVtjShraTWT7Hvh3FD4hij 62znf4hDonNVBhpjvrAmK6 AHngRPGyudtaXGo6BNqaHS JnbDcyMFxtYXJncjcyMFxt YXJndDcyMFxtYXJnYjcyMF sbSOZuBPD6ILgmx422MMX3 GIkbr4qnp9hbvLAhGfb1BH MePgYsQwftAIzpi1Hkt3yk USIqwc3hZQG8sPBvgPgir1 F1vCCjADDhhEXebkOcXUOk NlI2QCdmKN1kal50JSMtZJ S6rw3stAXsbFdjmaUsvJQh QQmpV3EjEZLqc121GUUzS1 BqFNCis1J1jzAnOyDpCBJc hHG4skY1GMGzWGo8eYJtoj H5csRgzDLqB0ainY19ZrTk vTFqB4MpaW02IlIotGUcR6 KwmJ94CvDkeEYtJ0KmjC08 BgRmqQDeQZZmyFWgUd6phF NvoSGhq9WcmVSnCEepI81i x080FTGzihRqL0tyjKLrfr ixcJDpieyjGMiqekQ8FJXm XHBsYWluXGYxXGZzMjBcbG FuZzEwMzNcaGljaFxmMVxk LvQoWWObJFfcT5kjKeCdLm MyMCBKYXVuZGljZSwgYSBs k1MvpWx4GEHkZcysfJZwuP QioIKxJ4H1kaYhr2m1lCL7 bGM0wuOdaFZqwOnjcYgjyp xwYXJ9 SPECIMEN SOURCE (test k3pljXJfEQYtyVBnZnDdYT code = 3377) TeYYHgx7xdQCIavOZmEzJg MzNcZnRuYmpcdWMxXGRlZm Pzd6nwh201cCRqj3pcSZAj YtT1rGZaPMQolOUkG820u7 pkn7ecihUasRV4JIZsPJS8 TJmowiGegqB6GTfsyCLeLq O2IDrkjxMtHMtnlmNtxgNh Scz5VSOqY911DAH0tLrez7 bqAXX5RZVwLIYpUvXpGh1u uVGxU209MFAlMAVHBDNxaI e3ZDDwyyZgxeMdhKDQm959 Y472a7xyNVDfgqRkyUkJia yzi1ahR790QOGecEBzwiEw FgEdRBXzlPCkyDL0WNVeCA 1utwfuIzNpTJ3uuzqmJbDs NF7bapa3HjKlYS3boibzOt RsCRxbLPYhidccYJKtr4Nz wivkDY7oB5Lte8J3zW1djE TzVOSjhLLhZgUhYMDrhd3r gWPgHNcun4BhUUA0moA7lC VknDJyEJQkGE93Fsglk4Rx OnzeBYX1RMRoumUcf6Yfa8 uvEsBfagNeH8ubT9SuHYKi CZPwOTSfQuRrvjKge6Tzt0 WvtRMahZa4d8ukSBWnKVVm wEhxp7irIGO7JJGfX9U7aQ Ptx6wbXTihNWJthXW4dkuh DBmwPCXmejL3lqyoZOfvBM FquGC2indrBMzrGSNfXlX1 lgbtRJddUKFyWYP7VLswg8 62HJY6RMwkMsbnRJafMUNq bmNvbnRccGduZGVjXHBsYW luXHBsYWluXGYwXGZzMjRc iOftfLtomS8cYlHxOwLiIA mlPT0lMWDiC8izhKPuCZGw FDYuI1smPpXirQ7etJbfPN eudqRcZUAFBC8JUsFSNFqL AKQSO9RfJvUTL3bXKrkbiD FyfQ== GROSS DESCRIPTION (test z7giuPMfRMLutORzXsUrTO code = 3366) JfDAHkb3ljBHQcwPOiRsSk MzNcZnRuYmpcdWMxXGRlZm Wdt6akf746tLXpk7amCFJl EsS9zLMhIBAxzYIxH115UB HmTGwly2suy6UxADNniYQs s8S1SBJMlazxvXx5mVqqK8 0og7H5JuirA7clIPKeVZWw K7UdXV1iABRmVfc7JHC1PY B3WCQsZLSaZ0AcYV2lPTJf qJGeWIx5l3cevDgxVFVrHW Q1f9hzCAvawsVhUO6imw9k iPd6z1ojxxUtFNDiMZHcsK FOYEEuX6DtpAvqDo5clGn7 gTkpRlucOBI9Phi5YL9wxc 48tbw8wTjsGDMqxwvqIuZ1 JJbpVFHyajwgNBr8XHtvPL JnbDcyMFxtYXJncjcyMFxt YXJndDcyMFxtYXJnYjcyMF gsSLXuLVL8TYmwa199UMP3 XDpcr7fdu2mllXVxQbp4XW DgHhEiTmtgTBdjk6Hrh3oz LRPsbt7wIVQ3iBYihJsai2 H8cHYtCPUmyKTlvcJpYATb ZzS3OCjsZM6kik49ONOdGY I9af7xcWLkpWfmpaYqbLNc BGwkF8GdWRPyi725JAGkG9 GuUCAhp3J2aqVwXtVnYHNw kLM1trR1AWRmUDq2mNYykg E6uaRfzNIyN9enoV42TbOh nKOsG4EriM03GzXsfKKjY0 QzfE59QpTbyCYyY3PecH40 CrCtoRPdMYShbBCuDz9xvY VjmGNed8IoxTUsPTuqM70n p909LPRrckKkT5fceJRgwh ncvULmgjwvBGlvinW3YCPo XHBsYWluXGYxXGZzMjJcbG FuZzEwMzNcaGljaFxmMVxk NvFaPXZlALzkB7ewNxMwFe PkBrGyFVEkoLPotC0aG9n9 g8DdY4lrccXhGnWmYOG2xV 5yhUiaesqlW2CzpHZjeD7k lkQyX06icC1brI3oNLOhQj wnaFNrAUVnvNeoH7GoXMaw MDExMTIwXHBhciBSZWNlaX ZlZDogMDExMzIwXHBhcn0= MICROSCOPIC DESCRIPTION e8nyiQYuJLIcqCJaUtEdTS (test code = 3371) RyAEPmk7zhUUMcaCJuOgAl MzNcZnRuYmpcdWMxXGRlZm Mfv9pcs121bOIhm0mxHYQc PkW3uDDvZTNriKCzM334w5 lfu9rsgsGxhEA4QNApSQX2 SOklavIxhkN3WTbqpOZkQc V9HQwgmrUxYVxyomXsfcSr Gla7APYyS729TSV7hLmql7 tqGAJ6WQQyJBXbMnEqJg2h iAHxV595LMRyXNWDWWXfdT o4FCXnvdWmknCioQPTl201 I279w9szOIOijyWapSeTur nsq7xbG027ZJKduAEaegYc DcNiMYBpkQJhmWL5OCOoMQ 4ncrgeAcMfKS4ylzilYtZt KT8oiqm5TnCyEN6nedljBu JhJNllCXTrxwdpTOSem1Jf xlumPX3qU0Ubz2Y4yQ2fnD BuPNAwvZIlFmYoKHImky2j dNDcNXksw1SzAPS3zeP8hO HbySAbRHSiBR97Brhip4Sg DdnpCVP9BSWocmStn6Jmw5 vaMlCxrsTnU3pkW1HeHRBn QQJbIHGkJtUfvaTae8Dmz5 SlzALvkNw3r8avIUEoCUHo dOmvt8uzPTH6VLRvN6E5tP Zsd7lxYCugLWWfxQG1qvzj VQbpBKJebyQ3ywenUCzdOQ UtqAT5bsqwZAsbIWPgNyI0 ooloTIivYZUgXRQ1JUsrp0 28FJI5HTemJjvhMRzlMZUf bmNvbnRccGduZGVjXHBsYW luXHBsYWluXGYwXGZzMjRc pEvbbFjlxN2uZpWdNvZxAN gcCM9qAQTxT4mqyTCaCRFs ROXeG6haLmDjeY1kaSwwCV sohbAgSZAfomBpzw4rKA7l cGFyfQ== STATEMENT OF ADEQUACY Satisfactory (test code = 2757) Gross assessment was [facility] performed at ([facility], = 2777) Department of Pathology, [address] [place], [place] [id number], Technical component was [facility] performed at ([facility], = 2778) Department of Pathology, [address] [place], [place] [id number], Professional component [facility] was performed at ([facility], code = 2779) Department of Pathology, [address] [place] [id number], [facility]2020-[facility]14 17:29:00Medical Cytology Report Case: [id number] Aut horizing Provider: Uriah Childs Collected: 02/15/2019 1226 Ordering Location: [address] Received: 02/15/2019 1529 Service Pathologist: Nereyda Causey MD Specimen: Common Bile Duct, Distal bile duct brushing in CRR COMMON BILE DUCT BRUSHING (CYTOSPINS AND CELL BLOCK): - MILDLY ATYPICAL CELLS PRESENT, FAVOR REACTIVE (SEE COMMENT) Signing Pathologist Direct Phone Line: [phone] signed by Nereyda Causey MD on 02/18/2019 at 5:29 PMFew mildly atypical cells are present and with the history of stent, a reactive process is favored. Clinical correlation is recommended.[id number], [id number], a localized biliary stricture with upstream dilationCOMMON BILE DUCT [id number] mls in cytorich red; 2 cytospins, cell block (collodion bag)Collected: [id number]: [id number].SatisfactoryB[facility], Department of Pathology, [address] [place] [id number], [facility], [facility] of [facility], [address] [place] [id number], [facility], Department of Pathology, [address] [place] [address], [facility] [place] [address], Ashkfbqo9376-01-14 14:54:00 Test Item Value Reference Range Interpretation Comments Ferritin (test code = 187 ng/mL 5-275 2276-4) ABAD (test code = ABAD) Transmitter Engineer In Charge ID - LA Lab Interpretation (test Normal code = 92055-8) [facility] CaliforniaFERRITIN2020-01-14 14:54:00 Test Item Value Reference Range Interpretation Comments FERRITIN (BEAKER) (test code = 361) 187 ng/mL 5-275 Transmitter Engineer In Charge ID - LACOMPREHENSIVE METABOLIC [id number] 14:41:00 Test Item Value Reference Range Interpretation [...] S NOT APPLICABLE FOR DIALYSIS PATIEN TS. Transmitter Engineer In Charge ID - CARLOS CSpecimen slightly ictericHEMOGLOBIN AND [id number] 12:27:00 Test Item Value Reference Range Interpretation Comments HEMOGLOBIN (BEAKER) (test code = 9.0 GM/DL 13.7-17.5 L 410) HEMATOCRIT (BEAKER) (test code = 29.6 % 40.1-51.0 L 411) Transmitter Engineer In Charge ID - 6000BASIC METABOLIC [id number] 11:55:00 Test Item Value Reference Range Interpretation [...] S NOT APPLICABLE FOR DIALYSIS PATIEN TS. Transmitter Engineer In Charge ID - eiqu55Ljandket slightly yldhezqJXZZXH9072-03-15 09:47:00 Test Item Value Reference Range Interpretation Comments LIPASE (BEAKER) (test code = 749) 72 U/L 6-51 H Transmitter Engineer In Charge ID - gmmy55Vpuxyrvj slightly ictericIRON, TIBC, % SAT. (WITHOUT FERRITIN)2019-02-17 07:14:00 Test Item Value Reference Range Interpretation Comments IRON (BEAKER) (test code = 547) 15.0 ug/dL 40.0-160.0 L TOTAL IRON BINDING CAPACITY 124 ug/dL 250-450 L (BEAKER) (test code = 769) IRON % SATURATION (2) (BEAKER) 12 % 20-55 L (test code = 2590) Transmitter Engineer In Charge ID - SOTERO MHEMOGLOBIN AND [id number] 06:32:00 Test Item Value Reference Range Interpretation Comments HEMOGLOBIN (BEAKER) (test code = 6.8 GM/DL 13.7-17.5 L 410) HEMATOCRIT (BEAKER) (test code = 22.3 % 40.1-51.0 L 411) Transmitter Engineer In Charge [facility] - [facility]Free T4 If Ziupsmvvo1652-91-71 05:53:00 Test Item Value Reference Range Interpretation Comments TSH (test code = 94248-0) 2.31 0.35- 4.94 uIU/mL ABAD (test code = ABAD) Transmitter Engineer In Charge ID - SOTERO M Lab Interpretation (test Normal code = 47097-7) [facility] CaliforniaVitamin B12 and Dvftyo7707-62-61 05:53:00 Test Item Value Reference Range Interpretation Comments Vitamin B12 (test code = 665 pg/mL 078-119 4359-9) Folate (test code = 12.3 ng/mL >=7.0 2284-8) ABAD (test code = ABAD) Transmitter Engineer In Charge ID - SOTERO Lab Interpretation (test Normal code = 61116-5) [facility] CaliforniaTS/FREE T4 IF XHJRCDRHV3723-09-43 05:53:00 Test Item Value Reference Range Interpretation Comments THYROID STIMULATING HORMONE 2.31 uIU/mL 0.35-4.94 (BEAKER) (test code = 772) Transmitter Engineer In Charge ID - SOTERO MVITAMIN B12 AND [id number] 05:53:00 Test Item Value Reference Range Interpretation Comments VITAMIN B12 (BEAKER) (test code = 665 pg/mL 213-816 774) FOLATE (BEAKER) (test code = 362) 12.3 ng/mL >=7.0 Transmitter Engineer In Charge ID - SOTERO [facility] (HEMOGRAM ONLY)2019-02-17 04:42:00 [...] WBC 0-0 (BEAKER) (test code = 413) [id number] 12:25:00 Test Item Value Reference Range Interpretation Comments LIPASE (BEAKER) (test code = 749) 64 U/L 8-78 Transmitter Engineer In Charge ID - CAROLINA FHEMOGLOBIN AND [id number] 10:31:00 Test Item Value Reference Range Interpretation Comments HEMOGLOBIN (BEAKER) (test code = 7.2 GM/DL 13.7-17.5 L 410) HEMATOCRIT (BEAKER) (test code = 24.0 % 40.1-51.0 L 411) Transmitter Engineer In Charge ID - 6000FL, LRJU9000-15-25 09:17:00Reason for exam:->jaundiceFINAL REPORT A fluoroscopic unit was utilized for a procedure performed in the operating room. No interpretation was requested. Please refer to the operative report regarding findings. Please refer to PACS for patient radiation dose information. Signed: Josef Maurer MDReport Verified Date/Time: 02/16/2019 09:17:37 Reading Location: [facility] B1 C013Y CT Body Reading Room [place] ERCP 2019-02-16 09:17:00Interface, External Ris In - 02/16/2019 9:19 AM CSTFINAL REPORT A fluoroscopic unit was utilized for a procedure performed in the operating room. No interpretation was requested. Please refer to the operative report regarding findings. Please refer to PACS for patient radiationdose information. Signed: Josef Maurer MDReport Verified Date/Time: 02/16/2019 09:17:37 Reading Location: [facility] C013Y CT Body Reading Room [facility] (HEMOGRAM ONLY)2019-02-16 07:59:00 Test Item Value Reference [...] (BEAKER) (test code = 413) HEPATIC FUNCTION [id number] 05:15:00 Test Item Value Reference Range Interpretation [...] (test code = 23 U/L 6-55 347) Transmitter Engineer In Charge ID - SOTERO [facility] METABOLIC [id number] 05:14:00 Test Item Value Reference Range Interpretation [...] S NOT APPLICABLE FOR DIALYSIS PATIEN TS. Transmitter Engineer In Charge ID - SOTERO MPT/[id number] 04:41:00 Test Item Value Reference Range Interpretation [...] is2.5-3.5 for patients wiht mechanical heart valves.PROTHROMBIN TIME/[id number] 04:40:00 Test Item Value Reference Range Interpretation [...] is2.5-3.5 for patients wiht mechanical heart valves.CYTOLOGY [id number] 17:00:00 Test Item Value Reference Range Interpretation Comments Cytology (test code = See Separate Report 3652) [facility] CaliforniaCYTOLOGY [id number] 17:00:00 Test Item Value Reference Range Interpretation Comments CYTOLOGY RESULT POINTER See Separate Report (BEAKER) (test code = 0003) CBC W/PLT COUNT & AUTO [id number] 12:12:00 Test Item Value Reference Range Interpretation [...] (BEAKER) (test code = 2801) BASIC METABOLIC [id number] 10:22:00 Test Item Value Reference Range Interpretation [...] S NOT APPLICABLE FOR DIALYSIS PATIEN TS. Transmitter Engineer In Charge ID Binu LAROSE FSpecimen slightly ictericHEPATIC FUNCTION [...] (test code = 29 U/L 6-55 347) Transmitter Engineer In Charge ID Binu LAROSE FSpecimen slightly ictericPT/[id number] 06:54:00 Test Item Value Reference Range Interpretation [...] is2.5-3.5 for patients wiht mechanical heart valves.PROTHROMBIN TIME/[id number] 06:53:00 Test Item Value Reference Range Interpretation [...] is2.5-3.5 for patients wiht mechanical heart valves.Manual Bkdehzimufig9945-86-06 11:17:00 Test Item Value Reference Range Interpretation [...] = 3438) ABAD (test code = ABAD) Transmitter Engineer In Charge ID - Lorenzo Carr comments: Slide comments: Lab Interpretation (test Abnormal code = 86865-5) [facility] W/PLT COUNT & AUTO [id number] 11:17:00 Test Item Value Reference Range Interpretation [...] report due WIDTH (BEAKER) (test to [facility] RBC code = 412) population [...] CONCENTRATION Adequate (CELLAVISION)(BEAKER) (test code = 3438) Transmitter Engineer In Charge ID - Lorenzo Carr comments: Slide comments:HEPATIC [...] (test code = 40 U/L 6-55 347) Transmitter Engineer In Charge ID - NTPSpecimen slightly ictericBASIC METABOLIC [id number] 10:09:00 Test Item Value Reference Range Interpretation [...] S NOT APPLICABLE FOR DIALYSIS PATIEN TS. Transmitter Engineer In Charge ID - NTPSpecimen slightly ictericPT/[id number] 05:20:00 Test Item Value Reference Range Interpretation [...] is2.5-3.5 for patients wiht mechanical heart valves.PROTHROMBIN TIME/[id number] 05:19:00 Test Item Value Reference Range Interpretation [...] wiht mechanical heart valves.WOUND CULTURE + GRAM [id number] 13:08:00 Test Item Value Reference Interpretation Comments [...] (BEAKER) (test code = cocci in pairs 014568) 4+ Skin floraCOMPREHENSIVE METABOLIC [id number] 04:14:00 Test Item Value Reference Range Interpretation [...] TOTAL (test code = ALKP) COMPREHENSIVE METABOLIC [id number] 04:07:00 Test Item Value Reference Range Interpretation [...] Unit/L 50-136 code = ALKP) CBC W/AUTO [id number] 04:05:00 Test Item Value Reference Range Interpretation [...] = NO DIFF/SCN CRITERIA MDIFF) CBC W/AUTO [id number] 18:44:00 Test Item Value Reference Range Interpretation [...] = NO DIFF/SCN CRITERIA MDIFF) BASIC METABOLIC [id number] 07:26:00 Test Item Value Reference Range Interpretation [...] CA) 7.8 MG/DL 8.5-10.1 L CBC W/AUTO [id number] 07:19:00 Test Item Value Reference Range Interpretation [...] DIFF/SCN CRITERIA MDIFF) - CT ABD PELVIS W/[id number] 20:03:00 Name: FAVIOLA [place] [facility] : 1990 Age/S: 28 / M [address] Unit #: [id number] Loc: [place] [address] Phys: Ramona Bahena MD Acct: [id number] Dis Date: Status: ADM IN PHONE #: [phone] Exam Date: 09/21/2018 191 FAX #: Reason: hx of pa ncreatitis, CBD stent, abd pain, melena EXAMS: CPT: [id number] CT ABD PELVIS W/CONT 32347 Dictation location: [facility]. CT ABDOMEN AND PELVIS WITH IV [...] Report (CONTINUED) Name: FAVIOLA [place] [facility] : 1990 Age/S: 28 / M [address] Unit #: [id number] Loc: [place] [address] Phys: Ramona Bahena MD Acct: [id number] Dis Date: Status: ADM IN PHONE #: [phone] Exam Date: 09/21/2018 1913 FAX #: Reason: hx of pancreatitis, CBD stent, abd pain, melena EXAMS: CPT: [id number] CT ABD PELVIS W/CONT 32124 <Continued> Interval mild thickening involving the sigmoid colonand rectum with fluid may relate to a colitis, infectious versus inflammatory. The remainder of the exam is stable. 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 There is a second adjacent small fluid collection which is also unchanged. Left pleural effusion. Hepatic steatosis. at 2003 Reported and signed by: Shana Hooks M.D. CC: Ramona Bahena MD Technologist:Yvette Lugo, RT(R)(CT) CTDI: DLP: Trnscb Date/Time: 09/21/2018 (2002) [email or web address] Orig Print D/T: S: 09/21/2018 (2005) PAGE 2 Signed ReportUA RFLX MICR CULT IF [id number] 19:45:00 Test Item Value Reference Range Interpretation [...] culture: Suprapubic PainUA RFLX MICR CULT IF [id number] 19:37:00 Test Item Value Reference Range Interpretation [...] CLEAN CATCHIndication for culture: Suprapubic PainLACTIC ACID [id number] 19:14:00 Test Item Value Reference Range Interpretation Comments LACTIC ACID POC (test code = 0.57 MMOL/L 0.90-1.70 L LACTP) BASIC METABOLIC [id number] 18:25:00 Test Item Value Reference Range Interpretation [...] CA) 8.6 MG/DL 8.5-10.1 N HEPATIC FUNCTION [id number] 18:25:00 Test Item Value Reference Range Interpretation [...] 160 Unit/L 50-136 H code = ALKP) [id number] 18:25:00 Test Item Value Reference Range Interpretation Comments LIPASE (test code = LIP) 164 Unit/L 114-286 N BASIC METABOLIC [id number] 18:22:00 Test Item Value Reference Range Interpretation [...] CA) 8.6 MG/DL 8.5-10.1 N HEPATIC FUNCTION [id number] 18:22:00 Test Item Value Reference Range Interpretation [...] TOTAL (test Unit/L 50-136 code = ALKP) [id number] 18:22:00 Test Item Value Reference Range Interpretation Comments LIPASE (test code = LIP) 164 Unit/L 114-286 N PROTHROMBIN [id number] 18:17:00 Test Item Value Reference Range Interpretation Comments PT PATIENT (test code = PTP) 15.7 SECONDS 9.3-12.9 H INTERNATIONAL NORMAL RATIO 1.36 INR Unit 0.8-1.2 H (test code = INR) THROMBOPLASTIN TIME [id number] 18:17:00 Test Item Value Reference Range Interpretation Comments THROMBOPLASTIN TIME PARTIAL 39.7 SECONDS 26-35 H (test code = PTT) CBC W/O [id number] 18:08:00 Test Item Value Reference Range Interpretation [...] 7.0-9.6 H MPV) - CT ABD PELVIS W/[id number] 19:34:00 Name: FAVIOLA [place] [facility] : 1990 Age/S: 28 / M [address] Unit #: [id number] Loc: [place] [address] Phys: Pola Brush MD Acct: [id number] Dis Date: Status: REG ER PHONE #: [phone] Exam Date: 09/11/20181844 FAX #: Reason: abdominal pain EXAMS: CPT: [id number] CT ABD PELVIS W/CONT 44219 EXAM: CT ABDOMEN AND PELVIS WITH IV [...] 1 Signed Report (CONTINUED) Name: FAVIOLA [place] [facility] [place] : 1990 Age/S: 28 / M [address] Unit #: [id number] Loc: [place] [address] Phys: Pola Brush MD Acct: [id number] Dis Date: Status: REG ER PHONE #: [phone] Exam Date: 09/11/2018 184 FAX #: Reason: abdominal pain EXAMS: CPT: [id number] CT ABD PELVIS W/CONT 41905 <Continued> are unremarkable. Gastrointestinal: No bowel obstruction [...] Yvonne Weber MD CC: Pola Brush MD Technologist:RT Anastasia(R)(CT) CTDI: DLP: Trnscb Date/Time: 09/11/2018 (1933) [email or web address] Orig Print D/T: S: 09/11/2018 (1936) PAGE 2 Signed ReportUA RFLX MICR CULT IF [id number] 19:30:00 Test Item Value Reference Range Interpretation [...] for culture: Dysuria/FrequencyUA RFLX MICR CULT IF [id number] 19:30:00 Test Item Value Reference Range Interpretation [...] URINE: CLEAN CATCHIndication for culture: Dysuria/FrequencyBASIC METABOLIC [id number] 18:14:00 Test Item Value Reference Range Interpretation [...] CA) 8.4 MG/DL 8.5-10.1 L HEPATIC FUNCTION [id number] 18:14:00 Test Item Value Reference Range Interpretation [...] 168 Unit/L 50-136 H code = ALKP) [id number] 18:14:00 Test Item Value Reference Range Interpretation Comments LIPASE (test code = LIP) 260 Unit/L 114-286 N BASIC METABOLIC [id number] 18:06:00 Test Item Value Reference Range Interpretation [...] CA) 8.4 MG/DL 8.5-10.1 L HEPATIC FUNCTION [id number] 18:06:00 Test Item Value Reference Range Interpretation [...] TOTAL (test code Unit/L 50-136 = ALKP) [id number] 18:06:00 Test Item Value Reference Range Interpretation Comments LIPASE (test code = LIP) Unit/L 114-286 CBC W/AUTO [id number] 18:02:00 Test Item Value Reference Range Interpretation [...] code = NO DIFF/SCN CRITERIA MDIFF) PROTHROMBIN [id number] 18:02:00 Test Item Value Reference Range Interpretation Comments PT PATIENT (test code = PTP) 16.2 SECONDS 9.3-12.9 H INTERNATIONAL NORMAL RATIO 1.40 INR Unit 0.8-1.2 H (test code = INR) THROMBOPLASTIN TIME [id number] 18:02:00 Test Item Value Reference Range Interpretation Comments THROMBOPLASTIN TIME PARTIAL 30.7 SECONDS 26-35 N (test code = PTT) BLOOD [id number] 02:01:00 Test Item Value Reference Range Interpretation Comments CULTURE (BEAKER) (test No growth in 5 days code = 1095) BLOOD [id number] 20:01:00 Test Item Value Reference Range Interpretation Comments CULTURE (BEAKER) (test No growth in 5 days code = 1095) CBC W/PLT COUNT & AUTO [id number] 05:36:00 Test Item Value Reference Range Interpretation [...] PERCENT (BEAKER) (test code = 2801) TISSUE [id number] 15:04:00Surgical Pathology Report Case: [id number] Authorizing Provider: Maliha Gotti MD Collected: 08/29/2018 0932 Ordering Location: [place] [address] ICU Received: 08/29/2018 1318 Pathologist: James Stringer MD Specimen: Polyp, Colon - Transverse, taken by yahaira MCNEAL A TRANSVERSE COLON BIOPSY FOR SUSPECTED POLYP:INFLAMMATORY PSEUDOPOLYP. Signing Pathologist Direct Phone Line: [phone] signed by James Stringer MD on 08/30/2018 at 3:04 PMImmunostains for CMV, HSV1, and HSV2 performed on block A1 are negative.52614, 11356, 35523Z5Ixm and postop diagnosis: gastrointestinal hemorrhage, unspecified gastrointestinal hemorrhage type Polyp, colon - tr ansverse Received in formalin labeled with the patient's name, accession number and "polyp, colon - transverse" is a 0.2 cm york soft tissue fragment which is submitted in toto in A1. CG/pl PERFORMED. The interpretation of this case included the use of immunohistochemistry or special stains.BLOCK A1- CMV, HSV1, HEN6Hthwtwm Slides Examined: In-house known positive controls were evaluated along withthe test tissue. These control slides run alongside of the patients sample show appropriate staining. Internal positive and negative controls when available are evaluated Immunohistochemistry technical testing was performed at [facility], Pathology Laboratory where it was developed [...] perform high complexity clinical laboratory testing.HEMOGLOBIN AND [id number] 12:44:00 Test Item Value Reference Range Interpretation Comments HEMOGLOBIN (BEAKER) (test code = 7.7 GM/DL 13.7-17.5 L 410) HEMATOCRIT (BEAKER) (test code = 25.1 % 40.1-51.0 L 411) BASIC METABOLIC [id number] 07:28:00 Test Item Value Reference Range Interpretation [...] S NOT APPLICABLE FOR DIALYSIS PATIEN TS. [id number] 07:13:00 Test Item Value Reference Range Interpretation Comments PHOSPHORUS (BEAKER) (test code = 3.7 mg/dL 2.3-4.7 604) [id number] 07:13:00 Test Item Value Reference Range Interpretation Comments MAGNESIUM (BEAKER) (test code = 2.0 mg/dL 1.6-2.6 627) HEPATIC FUNCTION [id number] 07:13:00 Test Item Value Reference Range Interpretation [...] 6-55 347) CBC W/PLT COUNT & AUTO [id number] 05:45:00 Test Item Value Reference Range Interpretation [...] 0-1 PERCENT (BEAKER) (test code = 2801) [id number] 06:28:00 Test Item Value Reference Range Interpretation Comments PHOSPHORUS (BEAKER) (test code = 4.0 mg/dL 2.3-4.7 604) [id number] 06:28:00 Test Item Value Reference Range Interpretation Comments MAGNESIUM (BEAKER) (test code = 1.9 mg/dL 1.6-2.6 627) HEPATIC FUNCTION [id number] 06:28:00 Test Item Value Reference Range Interpretation [...] = 7 U/L 6-55 347) BASIC METABOLIC [id number] 06:28:00 Test Item Value Reference Range Interpretation [...] PATIEN TS. CBC W/PLT COUNT & AUTO [id number] 05:15:00 Test Item Value Reference Range Interpretation [...] (BEAKER) (test code = 2801) HEMOGLOBIN AND [id number] 16:50:00 Test Item Value Reference Range Interpretation Comments HEMOGLOBIN (BEAKER) (test code = 7.8 GM/DL 13.7-17.5 L 410) HEMATOCRIT (BEAKER) (test code = 24.5 % 40.1-51.0 L 411) TROPONIN [id number] 07:07:00 Test Item Value Reference Range Interpretation [...] failure, acidosis, acute neurological disease, and persistent tachyarrhythmia.[id number] 07:04:00 Test Item Value Reference Range Interpretation Comments PHOSPHORUS (BEAKER) (test code = 3.0 mg/dL 2.3-4.7 604) [id number] 07:04:00 Test Item Value Reference Range Interpretation Comments MAGNESIUM (BEAKER) (test code = 1.7 mg/dL 1.6-2.6 627) BASIC METABOLIC [id number] 07:04:00 Test Item Value Reference Range Interpretation [...] APPLICABLE FOR DIALYSIS PATIEN TS. LACTIC ACID, [id number] 06:58:00 Test Item Value Reference Range Interpretation Comments LACTATE BLOOD VENOUS (2) (BEAKER) 0.7 mmol/L 0.5-2.2 (test code = 2872) HEMOGLOBIN AND [id number] 06:44:00 Test Item Value Reference Range Interpretation Comments HEMOGLOBIN (BEAKER) (test code = 8.2 GM/DL 13.7-17.5 L 410) HEMATOCRIT (BEAKER) (test code = 25.9 % 40.1-51.0 L 411) CBC W/PLT COUNT & AUTO [id number] 06:44:00 Test Item Value Reference Range Interpretation [...] PERCENT (BEAKER) (test code = 2801) TROPONIN [id number] 00:41:00 Test Item Value Reference Range Interpretation [...] acute neurological disease, and persistent tachyarrhythmia.HEMOGLOBIN AND [id number] 00:22:00 Test Item Value Reference Range Interpretation Comments HEMOGLOBIN (BEAKER) (test code = 5.9 GM/DL 13.7-17.5 LL 410) HEMATOCRIT (BEAKER) (test code = 18.8 % 40.1-51.0 L 411) RAD, CHEST, 1 VIEW, NON [id number] 21:37:00Reason for exam:->r/o pulm edemaShould this be [...] MDReport Verified Date/Time: 08/27/2018 21:37:05 Reading Location: [facility] C013W Consult Reading Room ALYSIS W/ REFLEX URINE [id number] 20:28:00 Test Item Value Reference Range Interpretation [...] Rare SOURCE(BEAKER) (test code = 2795) TROPONIN [id number] 19:29:00 Test Item Value Reference Range Interpretation [...] acute neurological disease, and persistent tachyarrhythmia.COMPREHENSIVE METABOLIC [id number] 19:21:00 Test Item Value Reference Range Interpretation [...] S NOT APPLICABLE FOR DIALYSIS PATIEN TS. [id number] 19:09:00 Test Item Value Reference Range Interpretation Comments PHOSPHORUS (BEAKER) (test code = 3.6 mg/dL 2.3-4.7 604) [id number] 19:09:00 Test Item Value Reference Range Interpretation Comments MAGNESIUM (BEAKER) (test code = 1.8 mg/dL 1.6-2.6 627) LACTIC ACID, [id number] 19:03:00 Test Item Value Reference Range Interpretation Comments LACTATE BLOOD VENOUS (2) (BEAKER) 0.9 mmol/L 0.5-2.2 (test code = 2872) PROTHROMBIN TIME/[id number] 18:53:00 Test Item Value Reference Range Interpretation [...] INR is2.5-3.5 for patients wiht mechanical heart valves.[id number] 18:53:00 Test Item Value Reference Range Interpretation Comments FIBRINOGEN LEVEL (BEAKER) (test 418 mg/dl 225-434 code = 658) CBC W/PLT COUNT & AUTO [id number] 18:48:00 Test Item Value Reference Range Interpretation [...] (BEAKER) (test code = 2801) HEMOGLOBIN AND [id number] 18:44:00 Test Item Value Reference Range Interpretation Comments HEMOGLOBIN (BEAKER) (test code = 6.3 GM/DL 13.7-17.5 L 410) HEMATOCRIT (BEAKER) (test code = 20.6 % 40.1-51.0 L 411) CBC W/PLT COUNT & AUTO [id number] 07:00:00 Test Item Value Reference Range Interpretation [...] PERCENT (BEAKER) (test code = 2801) CALCIUM, [id number] 06:20:00 Test Item Value Reference Range Interpretation Comments CALCIUM IONIZED (BEAKER) (test 1.01 mmol/L 1.12-1.27 L code = 698) PH, BLOOD (BEAKER) (test code = 7.50 1810) COMPREHENSIVE METABOLIC [id number] 06:16:00 Test Item Value Reference Range Interpretation [...] NOT APPLICABLE FOR DIALYSIS PATIEN TS. BLOOD [id number] 20:01:00 Test Item Value Reference Range Interpretation Comments CULTURE (BEAKER) (test No growth in 5 days code = 1095) [id number] 06:17:00 Test Item Value Reference Range Interpretation Comments PHOSPHORUS (BEAKER) (test code = 3.5 mg/dL 2.3-4.7 604) [id number] 06:17:00 Test Item Value Reference Range Interpretation Comments MAGNESIUM (BEAKER) (test code = 1.3 mg/dL 1.6-2.6 L 627) BASIC METABOLIC [id number] 06:17:00 Test Item Value Reference Range Interpretation [...] NOT APPLICABLE FOR DIALYSIS PATIEN TS. CALCIUM, [id number] 05:40:00 Test Item Value Reference Range Interpretation Comments CALCIUM IONIZED (BEAKER) (test 1.02 mmol/L 1.12-1.27 L code = 698) PH, BLOOD (BEAKER) (test code = 7.50 1810) CBC W/PLT COUNT & AUTO [id number] 05:32:00 Test Item Value Reference Range Interpretation [...] (BEAKER) (test code = 2801) COMPREHENSIVE METABOLIC [id number] 07:10:00 Test Item Value Reference Range Interpretation [...] S NOT APPLICABLE FOR DIALYSIS PATIEN TS. [id number] 06:50:00 Test Item Value Reference Range Interpretation Comments MAGNESIUM (BEAKER) (test code = 1.0 mg/dL 1.6-2.6 LL 627) COMPREHENSIVE METABOLIC [id number] 06:33:00 Test Item Value Reference Range Interpretation [...] S NOT APPLICABLE FOR DIALYSIS PATIEN TS. [id number] 06:31:00 Test Item Value Reference Range Interpretation Comments PHOSPHORUS (BEAKER) (test code = 3.3 mg/dL 2.3-4.7 604) CBC W/PLT COUNT & AUTO [id number] 06:23:00 Test Item Value Reference Range Interpretation [...] (BEAKER) (test code = 2801) LACTIC ACID, [id number] 06:22:00 Test Item Value Reference Range Interpretation Comments LACTATE BLOOD VENOUS (2) (BEAKER) 0.8 mmol/L 0.5-2.2 (test code = 2872) CALCIUM, [id number] 06:18:00 Test Item Value Reference Range Interpretation Comments CALCIUM IONIZED (BEAKER) (test 1.01 mmol/L 1.12-1.27 L code = 698) PH, BLOOD (BEAKER) (test code = 7.46 1810) U/S, ABDOMINAL, [id number] 16:51:00Abdomen limited area? Add comment if clarification [...] MDReport Verified Date/Time: 07/28/2018 16:51:39 Reading Location: [address] Consult Reading Room [id number] 06:56:00 Test Item Value Reference Range Interpretation Comments PHOSPHORUS (BEAKER) (test code = 2.6 mg/dL 2.3-4.7 604) [id number] 06:56:00 Test Item Value Reference Range Interpretation Comments MAGNESIUM (BEAKER) (test code = 1.5 mg/dL 1.6-2.6 L 627) BASIC METABOLIC [id number] 06:56:00 Test Item Value Reference Range Interpretation [...] APPLICABLE FOR DIALYSIS PATIEN TS. LACTIC ACID, [id number] 06:49:00 Test Item Value Reference Range Interpretation Comments LACTATE BLOOD VENOUS (2) (BEAKER) 0.7 mmol/L 0.5-2.2 (test code = 2872) CBC W/PLT COUNT & AUTO [id number] 06:31:00 Test Item Value Reference Range Interpretation [...] 0-1 PERCENT (BEAKER) (test code = 2801) [id number] 17:59:00 Test Item Value Reference Range Interpretation Comments PHOSPHORUS (BEAKER) (test code = 3.4 mg/dL 2.3-4.7 604) Check Serum Phosphorus level 4 hours after IV phosphorus replacement or 8 hours after PO replacementcompleted.[id number] 17:59:00 Test Item Value Reference Range Interpretation Comments MAGNESIUM (BEAKER) (test code = 1.7 mg/dL 1.6-2.6 627) Check Serum Phosphorus level 4 hours after IV phosphorus replacement or 8 hours after PO replacementcompleted.[id number] 04:50:00 Test Item Value Reference Range Interpretation Comments PHOSPHORUS (BEAKER) (test code = 1.8 mg/dL 2.3-4.7 L 604) [id number] 04:50:00 Test Item Value Reference Range Interpretation Comments MAGNESIUM (BEAKER) (test code = 1.4 mg/dL 1.6-2.6 L 627) BASIC METABOLIC [id number] 04:50:00 Test Item Value Reference Range Interpretation [...] PATIEN TS. CBC W/PLT COUNT & AUTO [id number] 04:45:00 Test Item Value Reference Range Interpretation [...] PERCENT (BEAKER) (test code = 2801) [place], [id number] 22:28:00Reason for exam:->bile duct stent removalFINAL REPORT Examination: ERCP 4 fluoroscopic spot views were obtained during the procedure by the ordering service. Images are nondiagnostic as no radiologist was present at the time of imaging. Fluoroscopic time was 49.6 seconds. Please see the procedure report for details. Signed: Rosalia Golden Verified Date/Time: 07/26/2018 22:28:43 Reading Location: [address] Reading Room POCT-GLUCOSE [id number] 20:43:00 Test Item Value Reference Range Interpretation Comments POC-GLUCOSE METER 146 mg/dL 70-110 H TESTED AT [facility] 6720 (BEAKER) (test code = CHANTE Mohamud [facility] 1538) [address] RAPID STREP A [id number] 18:22:00 Test Item Value Reference Range Interpretation Comments STREP A ANTIGEN (BEAKER) (test code Negative = 556) COMPREHENSIVE METABOLIC [id number] 17:37:00 Test Item Value Reference Range Interpretation [...] PATIEN TS. CBC W/PLT COUNT & AUTO [id number] 17:16:00 Test Item Value Reference Range Interpretation [...] PERCENT (BEAKER) (test code = 2801) POCT-GLUCOSE [id number] 12:06:00 Test Item Value Reference Range Interpretation Comments POC-GLUCOSE METER 132 mg/dL 70-110 H TESTED AT [place] [address] ([facility]) (test code = [facility] 1538) [address] POCT-GLUCOSE [id number] 08:57:00 Test Item Value Reference Range Interpretation Comments POC-GLUCOSE METER 80 mg/dL 70-110 TESTED AT [place] [address] ([facility]) (test code = [facility] [address] 1538) BASIC METABOLIC [id number] 06:35:00 Test Item Value Reference Range Interpretation [...] NOT APPLICABLE FOR DIALYSIS PATIEN TS. POCT-GLUCOSE [id number] 22:36:00 Test Item Value Reference Range Interpretation Comments POC-GLUCOSE METER 72 mg/dL 70-110 TESTED AT [place] [id number] ([facility]) (test code = CHANTE Mohamud [facility] [address] 1538) POCT-GLUCOSE [id number] 12:21:00 Test Item Value Reference Range Interpretation Comments POC-GLUCOSE METER 82 mg/dL 70-110 TESTED AT [place] [address] ([facility]) (test code = [facility] Cade [facility] [address] 1538) BASIC METABOLIC [id number] 09:30:00 Test Item Value Reference Range Interpretation [...] NOT APPLICABLE FOR DIALYSIS PATIEN TS. POCT-GLUCOSE [id number] 08:42:00 Test Item Value Reference Range Interpretation Comments POC-GLUCOSE METER 85 mg/dL 70-110 TESTED AT [place] [address] ([facility]) (test code = CHANTE Mohamud [facility] [address] 1538) POCT-GLUCOSE [id number] 21:33:00 Test Item Value Reference Range Interpretation Comments POC-GLUCOSE METER 106 mg/dL 70-110 TESTED AT [place] [address] ([facility]) (test code = CHANTE Mohamud [facility] 1538) [address] POCT-GLUCOSE [id number] 17:42:00 Test Item Value Reference Range Interpretation Comments POC-GLUCOSE METER 95 mg/dL 70-110 TESTED AT [place] [address] ([facility]) (test code = CHANTE Mohamud [facility] [address] 1538) [id number] 14:42:00 Test Item Value Reference Range Interpretation Comments POTASSIUM (BEAKER) 3.7 meq/L 3.5-5.1 Specimen slightly (test code = 379) hemolyzed Check Serum Potassium level 2 hours after oral potassium replacement completed or 30 min after intravenous potassium replacement.POCT-GLUCOSE [id number] 11:45:00 Test Item Value Reference Range Interpretation Comments POC-GLUCOSE METER 151 mg/dL 70-110 H TESTED AT [place] [address] ([facility]) (test code = CHANTE Mohamud [facility] 1538) [address] POCT-GLUCOSE [id number] 09:45:00 Test Item Value Reference Range Interpretation Comments POC-GLUCOSE METER 127 mg/dL 70-110 H TESTED AT [place] [address] ([facility]) (test code = CHANTE Mohamud [facility] 1538) [address] BLOOD [id number] 08:00:00 Test Item Value Reference Range Interpretation Comments CULTURE (BEAKER) (test No growth in 5 days code = 1095) BLOOD [id number] 08:00:00 Test Item Value Reference Range Interpretation Comments CULTURE (BEAKER) (test No growth in 5 days code = 1095) BASIC METABOLIC [id number] 06:48:00 Test Item Value Reference Range Interpretation [...] S NOT APPLICABLE FOR DIALYSIS PATIEN TS. [id number] 06:46:00 Test Item Value Reference Range Interpretation Comments PHOSPHORUS (BEAKER) (test code = 3.5 mg/dL 2.3-4.7 604) [id number] 06:46:00 Test Item Value Reference Range Interpretation Comments MAGNESIUM (BEAKER) (test code = 1.7 mg/dL 1.6-2.6 627) CALCIUM, [id number] 06:45:00 Test Item Value Reference Range Interpretation Comments CALCIUM IONIZED (BEAKER) (test 1.00 mmol/L 1.12-1.27 L code = 698) PH, BLOOD (BEAKER) (test code = 7.52 1810) POCT-GLUCOSE [id number] 21:56:00 Test Item Value Reference Range Interpretation Comments POC-GLUCOSE METER 112 mg/dL 70-110 H TESTED AT [place] [address] ([facility]) (test code = [facility] 1538) [address] POCT-GLUCOSE [id number] 17:46:00 Test Item Value Reference Range Interpretation Comments POC-GLUCOSE METER 86 mg/dL 70-110 TESTED AT [place] [address] ([facility]) (test code = [facility] [address] 1538) POCT-GLUCOSE [id number] 11:20:00 Test Item Value Reference Range Interpretation Comments POC-GLUCOSE METER 164 mg/dL 70-110 H TESTED AT [place] [address] ([facility]) (test code = [facility] 1538) [address] POCT-GLUCOSE [id number] 08:57:00 Test Item Value Reference Range Interpretation Comments POC-GLUCOSE METER 88 mg/dL 70-110 TESTED AT [facility] 6720 (BEAKER) (test code = [place] [id number] 3538) CALCIUM, [id number] 05:14:00 Test Item Value Reference Range Interpretation Comments CALCIUM IONIZED (BEAKER) (test 1.12 mmol/L 1.12-1.27 code = 698) PH, BLOOD (BEAKER) (test code = 7.43 1810) BASIC METABOLIC [id number] 04:59:00 Test Item Value Reference Range Interpretation [...] S NOT APPLICABLE FOR DIALYSIS PATIEN TS. [id number] 04:57:00 Test Item Value Reference Range Interpretation Comments MAGNESIUM (BEAKER) (test code = 1.8 mg/dL 1.6-2.6 627) [id number] 04:56:00 Test Item Value Reference Range Interpretation Comments PHOSPHORUS (BEAKER) (test code = 3.4 mg/dL 2.3-4.7 604) [id number] 04:54:00 Test Item Value Reference Range Interpretation [...] is2.5-3.5 for patients wiht mechanical heart valves.PROTHROMBIN [id number] 04:52:00 Test Item Value Reference Range Interpretation [...] mechanical heart valves.CBC W/PLT COUNT & AUTO [id number] 04:47:00 Test Item Value Reference Range Interpretation [...] PERCENT (BEAKER) (test code = 2801) POCT-GLUCOSE [id number] 22:08:00 Test Item Value Reference Range Interpretation Comments POC-GLUCOSE METER 133 mg/dL 70-110 H TESTED AT [place] [address] ([facility]) (test code = CHANTE Mohamud [facility] 1538) [address] POCT-GLUCOSE [id number] 18:34:00 Test Item Value Reference Range Interpretation Comments POC-GLUCOSE METER 151 mg/dL 70-110 H TESTED AT [place] [address] ([facility]) (test [facility] = [facility] 1538) [address] POCT-GLUCOSE [id number] 12:29:00 Test Item Value Reference Range Interpretation Comments POC-GLUCOSE METER 124 mg/dL 70-110 H TESTED AT [place] [address] ([facility]) (test code = [facility] Cade [facility] 1538) [address] RAD, CHEST, 1 VIEW, NON [id number] 10:57:00Reason for exam:->SOBShould this be performed at [...] MDReport Verified Date/Time: 07/15/2018 10:57:23 Reading Location: [facility] Radiology Reading Room C. DIFFICILE GDH [id number] 10:08:00 Test Item Value Reference Range Interpretation Comments CDT TOXIN (test code Negative Negative = [id number]) CDT GDH ANTIGEN (test Negative Negative No ind ication of code = [id number]) Clostridi um difficile infection and n o [...] CENTER Microbiology Lab prior to clinical use.POCT-GLUCOSE [id number] 08:57:00 Test Item Value Reference Range Interpretation Comments POC-GLUCOSE METER 159 mg/dL 70-110 H TESTED AT [facility] 6720 (BEAKER) (test code = CHANTE Mohamud [facility] 1538) [address] BLOOD [id number] 08:01:00 Test Item Value Reference Range Interpretation Comments CULTURE (BEAKER) (test No growth in 5 days code = 1095) BLOOD [id number] 08:01:00 Test Item Value Reference Range Interpretation Comments CULTURE (BEAKER) (test No growth in 5 days code = 1095) BASIC METABOLIC [id number] 04:49:00 Test Item Value Reference Range Interpretation [...] S NOT APPLICABLE FOR DIALYSIS PATIEN TS. [id number] 04:29:00 Test Item Value Reference Range Interpretation Comments PHOSPHORUS (BEAKER) (test code = 2.7 mg/dL 2.3-4.7 604) [id number] 04:29:00 Test Item Value Reference Range Interpretation Comments MAGNESIUM (BEAKER) (test code = 2.2 mg/dL 1.6-2.6 627) CBC W/PLT COUNT & AUTO [id number] 04:14:00 Test Item Value Reference Range Interpretation [...] PERCENT (BEAKER) (test code = 2801) CALCIUM, [id number] 03:58:00 Test Item Value Reference Range Interpretation Comments CALCIUM IONIZED (BEAKER) (test 1.11 mmol/L 1.12-1.27 L code = 698) PH, BLOOD (BEAKER) (test code = 7.41 1810) POCT-GLUCOSE [id number] 23:20:00 Test Item Value Reference Range Interpretation Comments POC-GLUCOSE METER 208 mg/dL 70-110 H TESTED AT [facility] 6720 (BEAKER) (test code = CHANTE MAHMOOD 1538) [address] BASIC METABOLIC [id number] 18:01:00 Test Item Value Reference Range Interpretation [...] S NOT APPLICABLE FOR DIALYSIS PATIEN TS. [id number] 18:00:00 Test Item Value Reference Range Interpretation Comments TRIGLYCERIDES (BEAKER) (test code = 125 mg/dL 540) TRIGLYCERIDE REFERENCE RANGELow Risk <150Borderline Risk 150-199High Risk 200-499Very High Risk>=[id number] 18:00:00 Test Item Value Reference Range Interpretation Comments MAGNESIUM (BEAKER) (test code = 1.6 mg/dL 1.6-2.6 627) CALCIUM, [id number] 17:46:00 Test Item Value Reference Range Interpretation Comments CALCIUM IONIZED (BEAKER) (test 1.13 mmol/L 1.12-1.27 code = 698) PH, BLOOD (BEAKER) (test code = 7.41 1810) POCT-GLUCOSE [id number] 17:45:00 Test Item Value Reference Range Interpretation Comments POC-GLUCOSE METER 173 mg/dL 70-110 H TESTED AT [facility] 6720 ([facility]) (test code = [place] 1538) [address] POCT-GLUCOSE [id number] 11:46:00 Test Item Value Reference Range Interpretation Comments POC-GLUCOSE METER 163 mg/dL 70-110 H TESTED AT [facility] 6720 ([facility]) (test code = CHANTE Mohamud [place] 1538) [address] BASIC METABOLIC [id number] 09:43:00 Test Item Value Reference Range Interpretation [...] APPLICABLE FOR DIALYSIS PATIEN TS. HEPATIC FUNCTION [id number] 09:43:00 Test Item Value Reference Range Interpretation [...] = < U/L 6-55 L 347) CALCIUM, [id number] 09:39:00 Test Item Value Reference Range Interpretation Comments CALCIUM IONIZED (BEAKER) (test 1.07 mmol/L 1.12-1.27 L code = 698) PH, BLOOD (BEAKER) (test code = 7.44 1810) [id number] 09:26:00 Test Item Value Reference Range Interpretation Comments PHOSPHORUS (BEAKER) (test code = 2.3 mg/dL 2.3-4.7 604) [id number] 09:26:00 Test Item Value Reference Range Interpretation Comments MAGNESIUM (BEAKER) (test code = 1.2 mg/dL 1.6-2.6 L 627) CBC W/PLT COUNT & AUTO [id number] 09:07:00 Test Item Value Reference Range Interpretation [...] ABSOLUTE COUNT 1.06 K/ L 1.32-3.57 L ([facility]) (test code = 414) MONOCYTES ABSOLUTE COUNT (BEAKER) 0.62 K/ L 0.30-0.82 (test code = 415) EOSINOPHILS ABSOLUTE COUNT 0.00 K/ L 0.04-0.54 L (AKER) (test code = 416) BASOPHILS ABSOLUTE COUNT (AKER) 0.01 K/ L 0.01-0.08 (test code = 417) IMMATURE GRANULOCYTES-RELATIVE 1 % 0-1 PERCENT ([facility]) (test code = 2801) POCT-GLUCOSE [id number] 06:10:00 Test Item Value Reference Range Interpretation Comments POC-GLUCOSE METER 170 mg/dL 70-110 H TESTED AT [place] [address] ([facility]) (test code = CHANTE Mohamud [facility] 1538) [address] POCT-GLUCOSE [id number] 23:12:00 Test Item Value Reference Range Interpretation Comments POC-GLUCOSE METER 200 mg/dL 70-110 H TESTED AT [place] [address] ([facility]) (test code = CHANTE Mohamud [facility] 1538) [address] POCT-GLUCOSE [id number] 18:28:00 Test Item Value Reference Range Interpretation Comments POC-GLUCOSE METER 153 mg/dL 70-110 H TESTED AT [place] [address] ([facility]) (test code = [facility] 1538) [address] RAD, CHEST, 1 VIEW, NON [id number] 17:19:00Reason for exam:->post central lineShould this be [...] MDReport Verified Date/Time: 07/13/2018 17:19:17 Reading Location: [facility] C013X Ortho Consult Reading Room POCT- GLUCOSE [id number] 11:45:00 Test Item Value Reference Range Interpretation Comments POC-GLUCOSE METER 214 mg/dL 70-110 H TESTED AT [facility] 6720 ([place]) (test code = [place] 1538) [address] CT, [id number] 09:34:00NO PO or IV contrastFINAL REPORT CT [...] be related to an enteritis. Signed: Perez Huerta MDReport Verified Date/Time: 07/13/2018 09:34:48 Reading Location: [address] Reading Room POCT-GLUCOSE [id number] 06:40:00 Test Item Value Reference Range Interpretation Comments POC-GLUCOSE METER 189 mg/dL 70-110 H TESTED AT [place] [address] ([facility]) (test code = CHANTE Mohamud [place] [address]) [address] RAD, CHEST, 1 VIEW, NON [id number] 01:21:00Reason for exam:->hypoxia, feverShould this be performed [...] MDReport Verified Date/Time: 07/13/2018 01:21:43 Reading Location: [address] Reading Room RAD, CHEST, 1 VIEW, NON [id number] 00:42:00Reason for exam:- >tachycardiaShould this be performed [...] METER 139 mg/dL 70-110 H TESTED AT [place] [address] ([facility]) (test code = CHANTE Mohamud [facility] 1538) [address] POCT-GLUCOSE [id number] 18:37:00 Test Item Value Reference Range Interpretation Comments POC-GLUCOSE METER 108 mg/dL 70-110 TESTED AT [place] [address] ([facility]) (test code = CHANTE Mohamud [facility] 1538) [address] LACTIC ACID, [id number] 17:04:00 Test Item Value Reference Range Interpretation Comments LACTATE BLOOD VENOUS (2) ([facility]) 0.7 mmol/L 0.5-2.2 (test code = 2872) POCT-GLUCOSE [id number] 13:25:00 Test Item Value Reference Range Interpretation Comments POC-GLUCOSE METER 129 mg/dL 70-110 H TESTED AT [place] [address] ([facility]) (test code = CHANTE Mohamud [facility] 1538) [address] POCT-GLUCOSE [id number] 10:27:00 Test Item Value Reference Range Interpretation Comments POC-GLUCOSE METER 109 mg/dL 70-110 TESTED AT [facility] 6720 ([facility]) (test code = [facility] Cade [facility] 1538) [address] LACTIC ACID, [id number] 07:03:00 Test Item Value Reference Range Interpretation Comments LACTATE BLOOD VENOUS 0.9 mmol/L 0.5-2.2 Specime n slightly (2) ([facility]) (test hemolyzed code = 2872) RAD, ABDOMEN/KUB, 1 VIEW [id number] 02:12:00Reason for exam:->UPRIGHT assess for perf; abdomoinal [...] Darden Verified Date/Time: 07/12/2018 02:12:57 POCT-LACTIC ACID, [id number] 02:11:00 Test Item Value Reference Range Interpretation Comments POC-LACTIC ACID, 1.5 mmol/L 0.9-1.7 TESTED AT [place] [address] VENOUS ([facility]) (test [facility] code = 2805) [address] [id number] 02:11:00 Test Item Value Reference Range Interpretation Comments POC-GLUCOSE ([facility]) 106 mg/dL 70-110 TESTED AT [place] [address] (test code = 1855) [facility] [address] POCT-CALCIUM [id number] 02:11:00 Test Item Value Reference Range Interpretation Comments POC-CALCIUM IONIZED 1.15 mmol/L 1.12-1.27 TESTED A [place] [address] ([facility]) (test code = [facility] 1536) [address] [id number] 02:11:00 Test Item Value Reference Range Interpretation Comments POC-HEMATOCRIT 37 % 40-50 L TESTED AT [place] [address] ([facility]) (test code = [facility] [address] 4637) [id number] 02:11:00 Test Item Value Reference Range Interpretation Comments POC-HEMOGLOBIN 12.6 g/dL 13.0-16.8 L TESTED AT [facility] 6720 (BEAKER) (test code [facility] = 1856) [address]PZECPH AT [place] [address] [place] [address] POCT-BLOOD GASES, [id number] 02:10:00 Test Item Value Reference Range Interpretation Comments TEMP, CELSIUS-POC 38.4 (BEAKER) (test code = 1834) FIO2-POC (BEAKER) 21 TESTED AT [place] [address] (test code = 1835) [facility] [place] [address] PH, VENOUS-POC 7.362 7.320-7.420 (BEAKER) (test code [...] -2.0-3.0 VENOUS-POC (BEAKER) (test code = 1847) [id number] 02:10:00 Test Item Value Reference Range Interpretation Comments POC-SODIUM (BEAKER) 139 meq/L 135-148 TESTED A [place] [address] (test code = 1542) [facility] [place] [address] [id number] 02:10:00 Test Item Value Reference Range Interpretation Comments POC-POTASSIUM 3.7 meq/L 3.6-5.5 TESTED AT [place] [address] (BEAKER) (test code [facility] [address] = 1540) HEPATIC FUNCTION [id number] 02:04:00 Test Item Value Reference Range Interpretation [...] = 8 U/L 6-55 347) BASIC METABOLIC [id number] 02:04:00 Test Item Value Reference Range Interpretation [...] PATIEN TS. CBC W/PLT COUNT & AUTO [id number] 02:03:00 Test Item Value Reference Range Interpretation [...] PERCENT (BEAKER) (test code = 2801) POCT-GLUCOSE [id number] 00:17:00 Test Item Value Reference Range Interpretation Comments POC-GLUCOSE METER 137 mg/dL 70-110 H TESTED AT [facility] 67 ([facility]) (test code = [facility] 1538) [address] POCT-GLUCOSE [id number] 18:14:00 Test Item Value Reference Range Interpretation Comments POC-GLUCOSE METER 106 mg/dL 70-110 TESTED AT [facility] 6720 ([facility]) (test code = [facility] 1538) [address] VANCOMYCIN LEVEL, [id number] 14:20:00 Test Item Value Reference Range Interpretation Comments VANCOMYCIN TROUGH (BEAKER) (test 7.1 ug/mL 10.0-20.0 L code = 522) If vancomycin trough level > 20 mcg/mL, hold next vancomycin dose, and contact MD and pharmacist.POCT-GLUCOSE [id number] 13:10:00 Test Item Value Reference Range Interpretation Comments POC-GLUCOSE METER 155 mg/dL 70-110 H TESTED AT [facility] 6720 (BEAKER) (test code = CHANTE Mohamud [place] 1538) [address] HEPATIC FUNCTION [id number] 06:51:00 Test Item Value Reference Range Interpretation [...] = 11 U/L 6-55 347) BASIC METABOLIC [id number] 06:51:00 Test Item Value Reference Range Interpretation [...] PATIEN TS. CBC W/PLT COUNT & AUTO [id number] 05:32:00 Test Item Value Reference Range Interpretation [...] 0-1 PERCENT (BEAKER) (test code = 2801) [id number] 11:08:00 Test Item Value Reference Range Interpretation Comments PARTIAL THROMBOPLASTIN TIME 47.0 seconds 22.5-36.0 H (BEAKER) (test code = 760) PROTHROMBIN [id number] 11:07:00 Test Item Value Reference Range Interpretation [...] for patients wiht mechanical heart valves.HEPATIC FUNCTION [id number] 01:46:00 Test Item Value Reference Range Interpretation [...] = 16 U/L 6-55 347) BASIC METABOLIC [id number] 01:46:00 Test Item Value Reference Range Interpretation [...] PATIEN TS. CBC W/PLT COUNT & AUTO [id number] 01:19:00 Test Item Value Reference Range Interpretation [...] (BEAKER) (test code = 2801) BETA-2 GLYCOPROTEIN [id number] 08:02:00 Test Item Value Reference Range Interpretation Comments B2 GLYCOPROTEIN Refer to individual AUTOVERIFICATION COMPONENT B2-Glycoprotein (test code = 2557) IgG, IgM and IgA results. [id number] 07:34:00 Test Item Value Reference Range Interpretation Comments MAGNESIUM (BEAKER) (test code = 1.6 mg/dL 1.6-2.6 627) BASIC METABOLIC [id number] 07:34:00 Test Item Value Reference Range Interpretation [...] APPLICABLE FOR DIALYSIS PATIEN TS. HEPATIC FUNCTION [id number] 07:34:00 Test Item Value Reference Range Interpretation [...] (test code = 41 U/L 6-55 347) [id number] 07:23:00 Test Item Value Reference Range Interpretation [...] 2801) LUPUS ANTICOAGULANT SCREEN WITH REFLEX TO [id number] 09:29:00 Test Item Value Reference Range Interpretation Comments DRVV SCREEN RATIO 1.39 <1.20 H (BEAKER) (test code = 2707) DRVV CONFIRM RATIO 1.21 (test code = 2709) DRVV INTERPRETATION Positive screen for (BEAKER) (test code = Lupus Anticoagulant 2163) with hexagonal phospholipid confirmation. Suggest repeat testing in 12 weeks and when patient not receiving anticoagulant therapy. PROTIME (BEAKER) (test 19.6 seconds 11.7-14.7 H code = 759) INR (BEAKER) (test code 1.7 <=5.9 = 370) PARTIAL THROMBOPLASTIN 57.5 seconds 22.5-36.0 H TIME (BEAKER) (test code = 760) PTT-LA (BEAKER) (test 61.5 32.0-41.8 H code = [id number]) [id number] Christy Smith MD (BEAKER) (test code = (electronic signature) 6700) [id number] 08:06:00 Test Item Value Reference Range Interpretation Comments MAGNESIUM (BEAKER) (test code = 1.7 mg/dL 1.6-2.6 627) BASIC METABOLIC [id number] 08:06:00 Test Item Value Reference Range Interpretation [...] APPLICABLE FOR DIALYSIS PATIEN TS. HEPATIC FUNCTION [id number] 08:06:00 Test Item Value Reference Range Interpretation [...] 6-55 347) CBC W/PLT COUNT & AUTO [id number] 07:58:00 Test Item Value Reference Range Interpretation [...] PERCENT (BEAKER) (test code = 2801) PROTHROMBIN [id number] 07:26:00 Test Item Value Reference Range Interpretation Comments PROTIME (BEAKER) (test code = 14.5 seconds 11.7-14.7 759) INR (BEAKER) (test code = 370) 1.2 <=5.9 RECOMMENDED COUMADIN/WARFARIN INR THERAPY RANGESSTANDARD DOSE: 2.0 - 3.0 Includes: PROPHYLAXIS forvenous thrombosis, systemic embolization; TREATMENT for venous thrombosis and/or pulmonary embolus.HIGH RISK: Target INR is 2.5-3.5 for patients with mechanical heart valves.PT/[id number] 07:26:00 Test Item Value Reference Range Interpretation [...] 2.5-3.5 for patients with mechanical heart valves.HEXAGONAL [id number] 14:07:00 Test Item Value Reference Range Interpretation Comments HEXAGONAL PHOSPHOLIPID (BEAKER) Positive (test code = 1790) 1:1 MIXING STUDY, [id number] 09:07:00 Test Item Value Reference Range Interpretation Comments PROTIME (BEAKER) (test code = 19.6 seconds 11.7-14.7 H 759) PARTIAL THROMBOPLASTIN TIME 57.5 seconds 22.5-36.0 H (BEAKER) (test code = 760) PT 1/1 MIX (BEAKER) (test code = 14.4 SECS 11.7-14.7 1595) PTT 1/1 MIX (BEAKER) (test code 41.9 SECS 22.5-36.0 H = 1596) [id number] 07:05:00 Test Item Value Reference Range Interpretation [...] 2.5-3.5 for patients with mechanical heart valves.PROTHROMBIN TIME/[id number] 07:04:00 Test Item Value Reference Range Interpretation Comments PROTIME (BEAKER) (test code = 16.9 seconds 11.7-14.7 H 759) INR (BEAKER) (test code = 370) 1.4 <=5.9 RECOMMENDED COUMADIN/WARFARIN INR THERAPY RANGESSTANDARD DOSE: 2.0 - 3.0 Includes: PROPHYLAXIS forvenous thrombosis, systemic embolization; TREATMENT for venous thrombosis and/or pulmonary embolus.HIGH RISK: Target INR is 2.5-3.5 for patients with mechanical heart valves.[id number] 06:49:00 Test Item Value Reference Range Interpretation Comments MAGNESIUM (BEAKER) (test code = 1.7 mg/dL 1.6-2.6 627) BASIC METABOLIC [id number] 06:49:00 Test Item Value Reference Range Interpretation [...] APPLICABLE FOR DIALYSIS PATIEN TS. HEPATIC FUNCTION [id number] 06:49:00 Test Item Value Reference Range Interpretation [...] 6-55 347) CBC W/PLT COUNT & AUTO [id number] 06:36:00 Test Item Value Reference Range Interpretation [...] code = 2801) CARDIOLIPIN ANTIBODIES, IGG AND [id number] 06:24:00 Test Item Value Reference Range Interpretation Comments ANTICARDIOLIPIN IGG ANTIBODY (BEAKER) < GPL <20.0 (test code = 712) ANTICARDIOLIPIN IGM ANTIBODY (BEAKER) 0.2 MPL <20.0 (test code = 713) Anticardiolipin IgG Result Interpretation: <20.0 GPL Normal>/= 20.0 GPL PositiveAnticardiolipin IgM Result Interpretation: <20.0 MPL Normal>/= 20.0 MPL PositiveTHROMBIN [id number] 13:45:00 Test Item Value Reference Range Interpretation Comments THROMBIN TIME (BEAKER) (test code = 17.2 secs 13.8-20.0 550) [id number] 12:46:00 Test Item Value Reference Range Interpretation Comments FIBRINOGEN LEVEL (BEAKER) (test 762 mg/dl 225-434 H code = 658) [id number] 10:48:00 Test Item Value Reference Range Interpretation Comments MAGNESIUM (BEAKER) (test code = 1.7 mg/dL 1.6-2.6 627) BASIC METABOLIC [id number] 10:48:00 Test Item Value Reference Range Interpretation [...] APPLICABLE FOR DIALYSIS PATIEN TS. HEPATIC FUNCTION [id number] 10:48:00 Test Item Value Reference Range Interpretation [...] (test code = 50 U/L 6-55 347) [id number] 06:40:00 Test Item Value Reference Range Interpretation [...] 2.5-3.5 for patients with mechanical heart valves.PROTHROMBIN TIME/[id number] 06:39:00 Test Item Value Reference Range Interpretation [...] 0-1 PERCENT (BEAKER) (test code = 2801) [id number] 06:48:00 Test Item Value Reference Range Interpretation Comments MAGNESIUM (BEAKER) (test code = 1.9 mg/dL 1.6-2.6 627) BASIC METABOLIC [id number] 06:48:00 Test Item Value Reference Range Interpretation [...] APPLICABLE FOR DIALYSIS PATIEN TS. HEPATIC FUNCTION [id number] 06:48:00 Test Item Value Reference Range Interpretation [...] (test code = 50 U/L 6-55 347) PT/[id number] 06:31:00 Test Item Value Reference Range Interpretation [...] 2.5-3.5 for patients with mechanical heart valves.PROTHROMBIN TIME/[id number] 06:30:00 Test Item Value Reference Range Interpretation [...] = 2801) RAD, CHEST, 1 VIEW, NON [id number] 18:34:00Reason for exam:->SOBShould this be performed at [...] MDReport Verified Date/Time: 06/11/2018 18:34:14 Reading Location: [address] Consult Reading Room B-TYPE NATRIURETIC FACTOR (BNP)2018-06-11 15:45:00 Test Item Value Reference Range Interpretation Comments B-TYPE NATRIURETIC PEPTIDE (BEAKER) < pg/mL 0-100 (test code = 700) PT/[id number] 06:36:00 Test Item Value Reference Range Interpretation [...] 2.5-3.5 for patients with mechanical heart valves.PROTHROMBIN TIME/[id number] 06:35:00 Test Item Value Reference Range Interpretation Comments PROTIME (BEAKER) (test code = 21.5 seconds 11.7-14.7 H 759) INR (BEAKER) (test code = 370) 2.0 <=5.9 RECOMMENDED COUMADIN/WARFARIN INR THERAPY RANGESSTANDARD DOSE: 2.0 - 3.0 Includes: PROPHYLAXIS forvenous thrombosis, systemic embolization; TREATMENT for venous thrombosis and/or pulmonary embolus.HIGH RISK: Target INR is 2.5-3.5 for patients with mechanical heart valves.[id number] 06:29:00 Test Item Value Reference Range Interpretation Comments MAGNESIUM (BEAKER) 1.9 mg/dL 1.6-2.6 Specimen slightly (test code = 627) hemolyzed BASIC METABOLIC [id number] 06:29:00 Test Item Value Reference Range Interpretation [...] APPLICABLE FOR DIALYSIS PATIEN TS. HEPATIC FUNCTION [id number] 06:29:00 Test Item Value Reference Range Interpretation [...] 347) hemolyzed CBC W/PLT COUNT & AUTO [id number] 06:00:00 Test Item Value Reference Range Interpretation [...] = 2801) BODY FLUID CULTURE + GRAM [id number] 18:11:00 Test Item Value Reference Range Interpretation Comments CULTURE (BEAKER) (test No growth code = 1095) GRAM STAIN RESULT <1+ White blood cells (BEAKER) (test code = seen 1123) GRAM STAIN RESULT No organisms seen (BEAKER) (test code = 66201) [id number] 07:01:00 Test Item Value Reference Range Interpretation Comments MAGNESIUM (BEAKER) (test code = 1.9 mg/dL 1.6-2.6 627) BASIC METABOLIC [id number] 07:01:00 Test Item Value Reference Range Interpretation [...] APPLICABLE FOR DIALYSIS PATIEN TS. HEPATIC FUNCTION [id number] 07:01:00 Test Item Value Reference Range Interpretation [...] code = 66 U/L 6-55 H 347) [id number] 06:32:00 Test Item Value Reference Range Interpretation [...] PERCENT (BEAKER) (test code = 2801) BLOOD [id number] 22:01:00 Test Item Value Reference Range Interpretation Comments CULTURE (BEAKER) (test No growth in 5 days code = 1095) BLOOD [id number] 22:01:00 Test Item Value Reference Range Interpretation Comments CULTURE (BEAKER) (test No growth in 5 days code = 1095) [id number] 07:20:00 Test Item Value Reference Range Interpretation [...] 0-1 PERCENT (BEAKER) (test code = 2801) [id number] 07:08:00 Test Item Value Reference Range Interpretation Comments MAGNESIUM (BEAKER) (test code = 2.1 mg/dL 1.6-2.6 627) BASIC METABOLIC [id number] 07:08:00 Test Item Value Reference Range Interpretation [...] APPLICABLE FOR DIALYSIS PATIEN TS. HEPATIC FUNCTION [id number] 07:08:00 Test Item Value Reference Range Interpretation [...] = 69 U/L 6-55 H 347) PROTHROMBIN TIME/[id number] 06:54:00 Test Item Value Reference Range Interpretation Comments PROTIME (BEAKER) (test code = 21.3 seconds 11.7-14.7 H 759) INR (BEAKER) (test code = 370) 2.0 <=5.9 RECOMMENDED COUMADIN/WARFARIN INR THERAPY RANGESSTANDARD DOSE: 2.0 - 3.0 Includes: PROPHYLAXIS forvenous thrombosis, systemic embolization; TREATMENT for venous thrombosis and/or pulmonary embolus.HIGH RISK: Target INR is 2.5-3.5 for patients with mechanical heart valves.[id number] 06:24:00 Test Item Value Reference Range Interpretation Comments MAGNESIUM (BEAKER) (test code = 2.0 mg/dL 1.6-2.6 627) BASIC METABOLIC [id number] 06:24:00 Test Item Value Reference Range Interpretation [...] APPLICABLE FOR DIALYSIS PATIEN TS. HEPATIC FUNCTION [id number] 06:24:00 Test Item Value Reference Range Interpretation [...] H 347) CBC W/PLT COUNT & AUTO [id number] 06:17:00 Test Item Value Reference Range Interpretation [...] PERCENT (BEAKER) (test code = 2801) PROTHROMBIN TIME/[id number] 05:39:00 Test Item Value Reference Range Interpretation Comments PROTIME (BEAKER) (test code = 22.4 seconds 11.7-14.7 H 759) INR (BEAKER) (test code = 370) 2.1 <=5.9 RECOMMENDED COUMADIN/WARFARIN INR THERAPY RANGESSTANDARD DOSE: 2.0 - 3.0 Includes: PROPHYLAXIS forvenous thrombosis, systemic embolization; TREATMENT for venous thrombosis and/or pulmonary embolus.HIGH RISK: Target INR is 2.5-3.5 for patients with mechanical heart valves.PT/[id number] 05:39:00 Test Item Value Reference Range Interpretation [...] for patients with mechanical heart valves.VANCOMYCIN LEVEL, [id number] 05:28:00 Test Item Value Reference Range Interpretation Comments VANCOMYCIN TROUGH (BEAKER) (test 14.0 ug/mL 10.0-20.0 code = 522) RAD, CHEST, 1 VIEW, NON [id number] 16:09:00Reason for exam:->feverShould this be performed at [...] MDReport Verified Date/Time: 06/07/2018 16:09:31 Reading Location: [facility] Women INCUBATED 1:1 MIXING [id number] 16:01:00 Test Item Value Reference Range Interpretation Comments IMMEDIATE PT (BEAKER) 22.5 seconds 11.7-14.7 H (test code = 1487) IMMEDIATE PTT (BEAKER) 54.8 seconds 22.5-36.0 H (test code = 1488) IMMEDIATE 1:1 MIX PT 14.1 seconds 11.7-14.7 (BEAKER) (test code = 1037542848) IMMEDIATE 1:1 MIX PTT 40.9 seconds 22.5-36.0 H (BEAKER) (test code = 2658059605) 1:1 MIX, 1 HOUR INC PT 14.9 seconds (BEAKER) (test code = 1501) 1:1 MIX, 1 HOUR INC PTT 43.6 seconds (BEAKER) (test code = 1502) MIXING STUDY PATHOLOGIST Prolonged PT and PTT INTERPRETATION (BEAKER) with complete (test code = 5831712242) correction of PT and incomplete correction of PTT, 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 [id number] Sade Mccormack MD (BEAKER) (test code = (electronic 2608) signature) URINALYSIS W/ REFLEX URINE [id number] 14:23:00 Test Item Value Reference Range Interpretation [...] 1574) Rare SOURCE(BEAKER) (test code = 2795) [id number] 04:19:00 Test Item Value Reference Range Interpretation [...] 2.5-3.5 for patients with mechanical heart valves.PROTHROMBIN TIME/[id number] 04:18:00 Test Item Value Reference Range Interpretation Comments PROTIME (BEAKER) (test code = 22.3 seconds 11.7-14.7 H 759) INR (BEAKER) (test code = 370) 2.1 <=5.9 RECOMMENDED COUMADIN/WARFARIN INR THERAPY RANGESSTANDARD DOSE: 2.0 - 3.0 Includes: PROPHYLAXIS forvenous thrombosis, systemic embolization; TREATMENT for venous thrombosis and/or pulmonary embolus.HIGH RISK: Target INR is 2.5-3.5 for patients with mechanical heart valves.[id number] 04:08:00 Test Item Value Reference Range Interpretation Comments MAGNESIUM (BEAKER) (test code = 1.8 mg/dL 1.6-2.6 627) BASIC METABOLIC [id number] 04:08:00 Test Item Value Reference Range Interpretation [...] APPLICABLE FOR DIALYSIS PATIEN TS. HEPATIC FUNCTION [id number] 04:08:00 Test Item Value Reference Range Interpretation [...] H 347) CBC W/PLT COUNT & AUTO [id number] 03:56:00 Test Item Value Reference Range Interpretation [...] PERCENT (BEAKER) (test code = 2801) [place], [id number] 18:30:00Reason for exam:->stonesPROCEDURE PERFORMED IN O.R. - [...] MDReport Verified Date/Time: 06/06/2018 18:06:54 Reading Location: [facility] B1 C013Y CT Body Reading Room Electronically sign ed by: ALDO MCGUIRE M.D. on 06/06/2018 06:06 PMC. DIFFICILE [facility] [id number] 10:12:00 Test Item Value Reference Range Interpretation Comments CDT TOXIN (test code Negative Negative = 1173110461) CDT GDH ANTIGEN (test Negative Negative No ind ication of code = 6243556948) Clostridi um difficile infection and n o colonization. Discontinue ent sonal isolation and t herapy. Testing performed by [employer] Rapid Cassette Assay. For GDH, published sensitivity of the assay is 98.7% compared to cytotoxicity testing. For Toxin AB, published sensitivity is 87.8% and specificity 99.4% compared to cytotoxicity testing.Verification of kit performance was done by the [facility] Microbiology Lab prior to clinical use.VANCOMYCIN LEVEL, [id number] 04:02:00 Test Item Value Reference Range Interpretation Comments VANCOMYCIN TROUGH (BEAKER) (test 9.9 ug/mL 10.0-20.0 L code = 522) [id number] 02:24:00 Test Item Value Reference Range Interpretation Comments MAGNESIUM (BEAKER) (test code = 1.8 mg/dL 1.6-2.6 627) BASIC METABOLIC [id number] 02:24:00 Test Item Value Reference Range Interpretation [...] APPLICABLE FOR DIALYSIS PATIEN TS. HEPATIC FUNCTION [id number] 02:24:00 Test Item Value Reference Range Interpretation [...] code = 60 U/L 6-55 H 347) [id number] 02:12:00 Test Item Value Reference Range Interpretation [...] 2.5-3.5 for patients with mechanical heart valves.PROTHROMBIN TIME/[id number] 02:11:00 Test Item Value Reference Range Interpretation [...] H PERCENT (BEAKER) (test code = 2801) [id number] 16:33:00 Test Item Value Reference Range Interpretation Comments FIBRINOGEN LEVEL (BEAKER) (test 852 mg/dl 225-434 H code = 658) CT, [id number] 12:46:00FINAL REPORT CT abdomen and pelvis with [...] MDReport Verified Date/Time: 06/05/2018 12:46:00 Reading Location: [facility] Diagnostic Imaging Reading Room - [place] [address] CBC W/PLT COUNT & AUTO DIFFERENTIAL 2018-06-05 [...] = 3438) Received comment: User comments: Slide comments:PT/[id number] 04:13:00 Test Item Value Reference Range Interpretation [...] is 2.5-3.5 for patients with mechanical heart valves.[id number] 04:12:00 Test Item Value Reference Range Interpretation Comments MAGNESIUM (BEAKER) (test code = 1.8 mg/dL 1.6-2.6 627) BASIC METABOLIC [id number] 04:12:00 Test Item Value Reference Range Interpretation [...] APPLICABLE FOR DIALYSIS PATIEN TS. HEPATIC FUNCTION [id number] 04:12:00 Test Item Value Reference Range Interpretation [...] code = 55 U/L 6-55 347) PROTHROMBIN [id number] 04:12:00 Test Item Value Reference Range Interpretation Comments PROTIME (BEAKER) (test code = 20.4 seconds 11.7-14.7 H 759) INR (BEAKER) (test code = 370) 1.9 <=5.9 RECOMMENDED COUMADIN/WARFARIN INR THERAPY RANGESSTANDARD DOSE: 2.0 - 3.0 Includes: PROPHYLAXIS forvenous thrombosis, systemic embolization; TREATMENT for venous thrombosis and/or pulmonary embolus.HIGH RISK: Target INR is 2.5-3.5 for patients with mechanical heart valves.BLOOD [id number] 02:02:00 Test Item Value Reference Range Interpretation Comments CULTURE (BEAKER) (test No growth in 5 days code = 1095) BLOOD [id number] 02:02:00 Test Item Value Reference Range Interpretation Comments CULTURE (BEAKER) (test No growth in 5 days code = 1095) CBC W/PLT COUNT & AUTO [id number] 22:18:00 Test Item Value Reference Range Interpretation [...] = 3438) Received comment: User comments: Slide comments:[id number] 14:28:00 Test Item Value Reference Range Interpretation Comments PROCALCITONIN (BEAKER) (test code 0.62 ng/mL <0.05 H = 3036) SEPSIS RISK (ng/mL)Low: 0.05-0.50Intermediate: 0.51-2.00High: >=2.01LACTIC ACID, [id number] 14:07:00 Test Item Value Reference Range Interpretation Comments LACTATE BLOOD VENOUS 1.1 mmol/L 0.5-2.2 Specime n moderately (2) (BEAKER) (test hemolyzed code = 2872) [id number] 06:34:00 Test Item Value Reference Range Interpretation Comments MAGNESIUM (BEAKER) (test code = 1.7 mg/dL 1.6-2.6 627) BASIC METABOLIC [id number] 06:34:00 Test Item Value Reference Range Interpretation [...] APPLICABLE FOR DIALYSIS PATIEN TS. HEPATIC FUNCTION [id number] 06:34:00 Test Item Value Reference Range Interpretation [...] (test code = 53 U/L 6-55 347) [id number] 06:06:00 Test Item Value Reference Range Interpretation [...] 2.5-3.5 for patients with mechanical heart valves.PROTHROMBIN TIME/[id number] 06:05:00 Test Item Value Reference Range Interpretation Comments PROTIME (BEAKER) (test code = 18.7 seconds 11.7-14.7 H 759) INR (BEAKER) (test code = 370) 1.7 <=5.9 RECOMMENDED COUMADIN/WARFARIN INR THERAPY RANGESSTANDARD DOSE: 2.0 - 3.0 Includes: PROPHYLAXIS forvenous thrombosis, systemic embolization; TREATMENT for venous thrombosis and/or pulmonary embolus.HIGH RISK: Target INR is 2.5-3.5 for patients with mechanical heart valves.[id number] 06:22:00 Test Item Value Reference Range Interpretation Comments MAGNESIUM (BEAKER) (test code = 1.8 mg/dL 1.6-2.6 627) BASIC METABOLIC [id number] 06:22:00 Test Item Value Reference Range Interpretation [...] APPLICABLE FOR DIALYSIS PATIEN TS. HEPATIC FUNCTION [id number] 06:22:00 Test Item Value Reference Range Interpretation [...] (test code = 46 U/L 6-55 347) [id number] 06:08:00 Test Item Value Reference Range Interpretation [...] 2.5-3.5 for patients with mechanical heart valves.PROTHROMBIN TIME/[id number] 06:07:00 Test Item Value Reference Range Interpretation [...] = 2801) CBC W/PLT COUNT & AUTO [id number] 04:50:00 Test Item Value Reference Range Interpretation [...] H PERCENT (BEAKER) (test code = 2801) [id number] 04:26:00 Test Item Value Reference Range Interpretation Comments MAGNESIUM (BEAKER) (test code = 1.7 mg/dL 1.6-2.6 627) BASIC METABOLIC [id number] 04:26:00 Test Item Value Reference Range Interpretation [...] APPLICABLE FOR DIALYSIS PATIEN TS. HEPATIC FUNCTION [id number] 04:26:00 Test Item Value Reference Range Interpretation [...] (test code = 54 U/L 6-55 347) PT/[id number] 04:11:00 Test Item Value Reference Range Interpretation [...] 2.5-3.5 for patients with mechanical heart valves.PROTHROMBIN TIME/[id number] 04:10:00 Test Item Value Reference Range Interpretation Comments PROTIME (TAI) (test code = 17.3 seconds 11.7-14.7 H 759) INR (BEAKER) (test code = 370) 1.5 <=5.9 RECOMMENDED COUMADIN/WARFARIN INR THERAPY RANGESSTANDARD DOSE: 2.0 - 3.0 Includes: PROPHYLAXIS forvenous thrombosis, systemic embolization; TREATMENT for venous thrombosis and/or pulmonary embolus.HIGH RISK: Target INR is 2.5-3.5 for patients with mechanical heart valves.U/S, ABDOMINAL, [id number] 14:19:00Abdomen limited area? Add comment if clarification [...] MDReport Verified Date/Time: 06/01/2018 14:19:45 Reading Location: [address] Transitional Reading Room CBC W/PLT COUNT & AUTO [id number] 06:28:00 Test Item Value Reference Range Interpretation [...] 0-1 PERCENT (BEAKER) (test code = 2801) [id number] 05:51:00 Test Item Value Reference Range Interpretation Comments MAGNESIUM (BEAKER) (test code = 2.0 mg/dL 1.6-2.6 627) BASIC METABOLIC [id number] 05:51:00 Test Item Value Reference Range Interpretation [...] DIALYSIS PATIEN TS. Specimen slightly ictericHEPATIC FUNCTION [id number] 05:51:00 Test Item Value Reference Range Interpretation [...] = 48 U/L 6-55 347) Specimen slightly ictericPT/[id number] 05:30:00 Test Item Value Reference Range Interpretation [...] 2.5-3.5 for patients with mechanical heart valves.PROTHROMBIN TIME/[id number] 05:29:00 Test Item Value Reference Range Interpretation Comments PROTIME (BEAKER) (test code = 16.0 seconds 11.7-14.7 H 759) INR (BEAKER) (test code = 370) 1.3 <=5.9 RECOMMENDED COUMADIN/WARFARIN INR THERAPY RANGESSTANDARD DOSE: 2.0 - 3.0 Includes: PROPHYLAXIS forvenous thrombosis, systemic embolization; TREATMENT for venous thrombosis and/or pulmonary embolus.HIGH RISK: Target INR is 2.5-3.5 for patients with mechanical heart valves.RAD, CHEST, 1 VIEW, NON [id number] 11:58:00Reason for exam:->pancreatitisShould this be performed at [...] MDReport Verified Date/Time: 05/31/2018 11:58:54 Reading Location: [facility] Radiology Reading Room CBC W/PLT COUNT & AUTO [id number] 08:44:00 Test Item Value Reference Range Interpretation [...] = 3438) Received comment: User comments: Slide comments:[id number] 04:27:00 Test Item Value Reference Range Interpretation Comments MAGNESIUM (BEAKER) (test code = 1.6 mg/dL 1.6-2.6 627) BASIC METABOLIC [id number] 04:27:00 Test Item Value Reference Range Interpretation [...] DIALYSIS PATIEN TS. Specimen moderately ictericHEPATIC FUNCTION [id number] 04:27:00 Test Item Value Reference Range Interpretation [...] = 29 U/L 6-55 347) Specimen moderately ictericPT/[id number] 04:15:00 Test Item Value Reference Range Interpretation [...] 2.5-3.5 for patients with mechanical heart valves.PROTHROMBIN TIME/[id number] 04:14:00 Test Item Value Reference Range Interpretation [...] = 2795) CBC W/PLT COUNT & AUTO [id number] 21:33:00 Test Item Value Reference Range Interpretation [...] 3438) Received comment: User comments: Slide comments:TROPONIN [id number] 21:32:00 Test Item Value Reference Range Interpretation [...] acute neurological disease, and persistent tachyarrhythmia.BASIC METABOLIC [id number] 21:29:00 Test Item Value Reference Range Interpretation [...] APPLICABLE FOR DIALYSIS PATIEN TS. Specimen moderately [id number] 21:27:00 Test Item Value Reference Range Interpretation Comments MAGNESIUM (BEAKER) (test code = 1.6 mg/dL 1.6-2.6 627) LIPID [id number] 21:27:00 Test Item Value Reference Range Interpretation [...] 160-189 Very High >=190 Specimen moderatelyictericHEPATIC FUNCTION [id number] 21:27:00 Test Item Value Reference Range Interpretation [...] 9-64 (test code = 364) Specimen moderately [id number] 21:27:00 Test Item Value Reference Range Interpretation Comments LIPASE (BEAKER) (test code = 749) 227 U/L 8-78 H Specimen moderately ictericPROTHROMBIN TIME/[id number] 21:05:00 Test Item Value Reference Range Interpretation [...]
[2020-01-03] MEDS ORDERED: PROMETHAZINE INJ 25 MG/ML AMP ONE (22:24)
[2020-01-03] MEDS ORDERED: THIAMINE 200 MG/2 ML INJ ONE (22:25)
[2020-01-03] MEDS ORDERED: HYDROMORPHONE HCL 1 MG/ML INJ ONE (22:25)
[2020-01-03] MEDS ORDERED: NA CHLORIDE 0.9% 1,000 ML ONE (22:25)
[2020-01-03] MEDS ORDERED: PANTOPRAZOLE 40 MG INJ ONE ×2 (22:25→22:49)
[2020-01-03] MEDS ORDERED: FOLIC ACID 5 MG/ML VIAL ONE (22:28)
[2020-01-03 22:59] LABS: ALT/SGPT 19 U/L (12-78); AST/SGOT 19 U/L (15-37); Albumin 2.2 g/dL (3.4-5.0); Alkaline Phosphatase 315 U/L (45-117); BUN Blood Urea Nitrogen 4 mg/dL (7-18); Bicarbonate 27 mmol/L (21-32); Bilirubin Direct 0.3 mg/dL (0-0.2); Glucose Level 106 mg/dL (74-106); Lipase 641 U/L (73-393); Potassium 3.9 mmol/L (3.5-5.1); Protein, Total 7.5 g/dL (6.4-8.2); Sodium Level 139 mmol/L (136-145)
[2020-01-03] MEDS ORDERED: NA CHLORIDE 0.9% 250 ML ONE (23:05)
[2020-01-03 23:06] LABS: Basophils % 0.4 % (0-1.3); Hematocrit 42.4 % (39.6-49.0); Lymphocytes % 5.3 % (15.3-44.8); RBC Red Blood Cell Count 4.51 M/uL (4.33-5.43)
[2020-01-03 23:15] LABS: Magnesium 1.7 mg/dL (1.8-2.4); Phosphorus 3.8 mg/dL (2.5-4.9); Thyroid Stimulating Hormone 1.15 uIU/mL (0.360-3.740)
[2020-01-04] MEDS ORDERED: NA CHLORIDE 0.9% 1,000 ML ONE (00:26)
[2020-01-04 01:08] LABS: Urine Blood NEGATIVE (NEG); Urine Glucose NEGATIVE (NEG); Urine Protein NEGATIVE (NEG)
--- NOTE | 2020-01-04 01:33 | ER ---
Nurse's Notes [facility] Name: Jann Alvarez Age: 29 yrs Sex: Male : 1990 Arrival Date: 01/03/2020 Time: 21:38 Bed 2 Private MD: Zac Coughlin Diagnosis: Acute on chronic pancreatitis Presentation: 01/02 21:40 Chief complaint: EMS states: pt has hx of GI problems with pancreatic issues, has been sg having abdominal pain per pt caregiver with vomiting. Caregiver denies fever/chills at home for this patient. Coronavirus screen: Client denies travel out of the [place] in the last 14 days. nausea, vomiting. Client presents with at least one sign or symptom that may indicate coronavirus-19. Provider contacted for isolation considerations. Ebola Screen: Patient negative for fever greater than or equal to 101.5 degrees Fahrenheit, and additional compatible Ebola Virus Disease symptoms Patient denies exposure to infectious person. Patient denies travel to an Ebola-affected area in the 21 days before illness onset. No symptoms or risks identified at this time. Initial Sepsis Screen: Does the patient meet any 2 criteria? HR > 90 bpm. Does the patient have a suspected source of infection? Yes: Acute abdominal pain. Risk Assessment: Do you want to hurt yourself or someone else? Patient reports no desire to harm self or others. Onset of symptoms was January 03, 2020. Care prior to arrival: None. Transition of care: patient was not received from another setting of care. 21:40 Acuity: KIMBER 3 sg 21:40 Method Of Arrival: EMS: [facility] sg Historical: - Allergies: 21:40 meropenem; sg 01/03 03:46 Vancomycin; ll2 03:46 Zosyn; ll2 - PMHx: 01/02 21:40 Gastric varices; Lupus; Pancreatitis; SEVERE PANCREATIC NECROSIS; sg 01/03 01:21 Autism; sg - PSHx: 01/02 21:40 Cholecystectomy; splenectomy; sg - Immunization history:: Adult Immunizations up to date. - Social history:: Smoking status: Patient denies any tobacco usage or history of. Screenin:54 Abuse screen: Denies threats or abuse. Nutritional screening: No deficits noted. ea Tuberculosis screening: No symptoms or risk factors identified. Fall Risk None identified. Assessment: 21:40 General: Appears in no apparent distress. Behavior is calm, cooperative. Pain: ll2 Complains of pain in left upper quadrant and epigastric area Pain does not radiate. Neuro: Level of Consciousness is awake, alert, obeys commands, Oriented to person. Cardiovascular: Patient's skin is warm and dry. Respiratory: Airway is patent Respiratory effort is even, unlabored, Respiratory pattern is regular, symmetrical. GI: Reports upper abdominal pain, Parent/caregiver reports the patient having epigastric pain. : No signs and/or symptoms were reported regarding the genitourinary system. EENT: No signs and/or symptoms were reported regarding the EENT system. Derm: Skin is intact, is healthy with good turgor, Skin is dry, Skin is pink, warm \T\ dry. Skin temperature is warm. Musculoskeletal: No signs and/or symptoms reported regarding the musculoskeletal system. 22:45 Reassessment: Patient and/or family updated on plan of care and expected duration. Pain ll2 level reassessed. Patient is alert, oriented x 3, equal unlabored respirations, skin warm/dry/pink. 23:45 Reassessment: No changes from previously documented assessment. Patient and/or family ll2 updated on plan of care and expected duration. Pain level reassessed. Patient is alert, oriented x 3, equal unlabored respirations, skin warm/dry/pink. 01/03 00:57 Reassessment: Patient and/or family updated on plan of care and expected duration. Pain ll2 level reassessed. Patient is alert, oriented x 3, equal unlabored respirations, skin warm/dry/pink. pt resting in bed, mom at bedside notified by of need for transfer. 02:00 Reassessment: Patient and/or family updated on plan of care and expected duration. Pain ll2 level reassessed. Patient is alert, oriented x 3, equal unlabored respirations, skin warm/dry/pink. covid swab obtained. Patient denies pain at this time. 02:31 Reassessment: report given to jose daniel at receiving facility, [facility]. [facility] 03:03 Reassessment: mom at bedside updated on plan to transfer and report being called to [facility] receiving facility. 03:45 Reassessment: report given to [facility]. [facility] Vital Signs: 01/02 21:27 BP 102 / 84; Pulse 130; Resp 19; Temp 98.6; Pulse Ox 99% on R/A; ea 22:30 BP 116 / 84 (art line/); Pulse 122; Resp 22; Pulse Ox 100% on R/A; ll2 01/03 00:23 BP 121 / 75; Pulse 89; Resp 16; Pulse Ox 99% on R/A; ll2 00:30 BP 108 / 75; Pulse 81; Resp 16; Pulse Ox 99% on R/A; ll2 01:30 BP 101 / 66; Pulse 77; Resp 16; Pulse Ox 97% on R/A; ll2 02:30 BP 98 / 66; Pulse 65; Resp 14; Pulse Ox 97% on R/A; ll2 ED Course: 01/02 21:38 Patient arrived in ED. sg 21:40 Arm band placed on. sg 21:41 Zac Coughlin MD is Private Physician. sg 21:43 Poornima Yoder F[facility]-C [facility]. snw 21:43 Sharif Adkins MD is Attending Physician. snw 21:48 Aniyah Vail, [facility] is Primary Nurse. ll2 21:49 Triage completed. sg 22:25 Inserted saline lock: 22 gauge in right wrist, using aseptic technique. Blood ds4 collected. Missed attempt(s): 20 gauge in right antecubital area. Bleeding controlled, band aid applied, catheter tip intact. 01/03 00:00 Call light in reach. Side rails up X 1. Adult w/ patient. patient monitor on. Pulse ox ll2 on. NIBP on. 00:12 CT Abd/Pelvis - IV Contrast Only In Process Unspecified. EDMS 03:47 No provider procedures requiring assistance completed. Patient transferred, IV remains ll2 in place. Administered Medications: 01/02 21:48 CANCELLED (Patient Refused): morphine 4 mg IVP once; RASS on ADMIN: Combtv4, Very snw Agttd3, Agttd2, Rstlss1, AlertClm0, Drwsy-1, Lt Sdtn-2, Mod Sdtn-3, Dp Sdtn-4, UnArsble-5 22:00 Drug: Phenergan 12.5 mg Route: IVP; Site: right antecubital; ll2 23:00 Follow up: Response: No adverse reaction ll2 22:00 Drug: ProTONIX 8 mg/hr Route: IV; Rate: 25 ml/hr; Site: right antecubital; ll2 22:50 Drug: NS 0.9% 1000 ml Route: IV; Rate: 1 bolus; Site: right antecubital; ll2 23:50 Follow up: Response: No adverse reaction; IV Status: Completed infusion; IV Intake: ll2 1000ml 22:50 Drug: Dilaudid 1 mg Route: IVP; Site: right antecubital; ll2 23:20 Follow up: Response: No adverse reaction; RASS: Alert and Calm (0) ll2 22:50 Drug: Thiamine 100 mg Route: IV; Rate: bolus; Site: right antecubital; ll2 23:50 Follow up: Response: No adverse reaction ll2 22:50 Drug: foLIC Acid 1 mg Route: IVPB; Site: right antecubital; ll2 23:50 Follow up: Response: No adverse reaction ll2 23:24 Drug: NS 0.9% 1000 ml Route: IV; Rate: 1 bolus; Site: right forearm; ll2 01/03 00:25 Follow up: Response: No adverse reaction; IV Status: Completed infusion; IV Intake: ll2 1000ml 00:53 Drug: NS 0.9% 1000 ml Route: IV; Rate: 125 ml/hr; Site: right antecubital; ll2 Intake: 01/02 23:50 IV: 1000ml; Total: 1000ml. ll2 01/03 00:25 IV: 1000ml; Total: 2000ml. ll2 Outcome: 01:32 ER care complete, transfer ordered by MD. snw 01:54 ER care complete, transfer ordered by MD. snw 03:47 Transferred by ground EMS ll2 03:47 Condition: stable 03:47 Instructed on the need for transfer. 03:48 Patient left the ED. ll2 Signatures: Dispatcher [employer] EDMS Khadar Alfaro RN Poornima Singh, LESA CANSECO-Wes Dickey ds4 Andressa Gomez RN RN ea Linscombe, Lacie, RN RN ll2 Corrections: (The following items were deleted from the chart) 01/02 21:56 21:27 BP 102 / 84; Pulse 130bpm; Resp 19bpm; Pulse Ox 99% RA; ea ea 01/03 00:31 00:23 BP 108 / 75; Pulse 81bpm; Resp 16bpm; Pulse Ox 99% RA; [facility] 00:55 01/02 23:00 ProTONIX 8 mg/hr IV at 25 ml/hr in right antecubital [place] [id number] 01/03 01:21 01/02 21:40 PMHx: Autism- Nonverbal; [facility] 01/03 03:47 01/02 21:40 Allergies: Vancomycin; [facility] 01/03 03:47 01/02 21:40 Allergies: Zosyn; [facility]
--- NOTE | 2020-01-04 01:33 | EDPHYS ---
Physician Documentation [facility] Name: Jann Alvarez Age: 29 yrs Sex: Male : 1990 Arrival Date: 01/03/2020 Time: 21:38 Bed 2 Private MD: Zac Coughlin ED Physician Sharif Adkins HPI: 01/02 21:54 This 29 yrs old Male presents to ER via EMS with complaints of Abdominal Pain. snw 21:54 The patient presents with abdominal pain in the epigastric area, in the upper abdomen. snw Onset: The symptoms/episode began/occurred 1 day(s) ago, and became worse. The symptoms do not radiate. Associated signs and symptoms: Pertinent positives: nausea and vomiting. The symptoms are described as sharp, stabbing. Severity of pain: At its worst the pain was moderate severe. The patient has experienced similar episodes in the past, multiple times, pt with >100 lb wt loss this year. It is unknown whether or not the patient has recently seen a physician. Historical: - Allergies: 21:40 meropenem; sg 01/03 03:46 Vancomycin; ll2 03:46 Zosyn; ll2 - PMHx: 01/02 21:40 Gastric varices; Lupus; Pancreatitis; SEVERE PANCREATIC NECROSIS; sg 01/03 01:21 Autism; sg - PSHx: 01/02 21:40 Cholecystectomy; splenectomy; sg - Immunization history:: Adult Immunizations up to date. - Social history:: Smoking status: Patient denies any tobacco usage or history of. ROS: 21:54 Constitutional: Negative for fever, chills, and weight loss, Eyes: Negative for injury, snw pain, redness, and discharge, ENT: Negative for injury, pain, and discharge, Neck: Negative for injury, pain, and swelling, Cardiovascular: Negative for chest pain, palpitations, and edema, Respiratory: Negative for shortness of breath, cough, wheezing, and pleuritic chest pain, Back: Negative for injury and pain, : Negative for injury, bleeding, discharge, and swelling, MS/Extremity: Negative for injury and deformity, Skin: Negative for injury, rash, and discoloration, Neuro: Negative for headache, weakness, numbness, tingling, and seizure, Psych: Negative for depression, anxiety, suicide ideation, homicidal ideation, and hallucinations. 21:54 Abdomen/GI: Positive for abdominal pain, nausea and vomiting, of the epigastric area and left upper quadrant. Exam: 21:51 Head/Face: Normocephalic, atraumatic. Eyes: Pupils equal round and reactive to light, snw extra-ocular motions intact. Lids and lashes normal. Conjunctiva and sclera are non-icteric and not injected. Cornea within normal limits. Periorbital areas with no swelling, redness, or edema. ENT: Nares patent. No nasal discharge, no septal abnormalities noted. Tympanic membranes are normal and external auditory canals are clear. Oropharynx with no redness, swelling, or masses, exudates, or evidence of obstruction, uvula midline. Mucous membranes moist. Neck: Trachea midline, no thyromegaly or masses palpated, and no cervical lymphadenopathy. Supple, full range of motion without nuchal rigidity, or vertebral point tenderness. No Meningismus. Chest/axilla: Normal chest wall appearance and motion. Nontender with no deformity. No lesions are appreciated. 21:51 Respiratory: Lungs have equal breath sounds bilaterally, clear to auscultation and percussion. No rales, rhonchi or wheezes noted. No increased work of breathing, no retractions or nasal flaring. Back: No spinal tenderness. No costovertebral tenderness. Full range of motion. Skin: Warm, dry with normal turgor. Pale color with no rashes, no lesions, and no evidence of cellulitis. 21:51 MS/ Extremity: Pulses equal, no cyanosis. Neurovascular intact. Full, normal range of motion. Neuro: Awake and alert, GCS 15, oriented to person, place, time, and situation. Cranial nerves II-XII grossly intact. Motor strength 5/5 in all extremities. Sensory grossly intact. Cerebellar exam normal. Normal gait. Psych: Awake, alert, with orientation to person, place and time. Behavior, mood, and affect are within normal limits. 21:51 Constitutional: The patient appears alert, awake, frail, pale. 21:51 Cardiovascular: Rate: tachycardic, Pulses: no pulse deficits are appreciated, Heart sounds: normal. 21:51 Abdomen/GI: Inspection: abdomen appears normal, Bowel sounds: hyperactive, in all quadrants, Palpation: moderate abdominal tenderness, in the epigastric area and left upper quadrant. Vital Signs: 21:27 BP 102 / 84; Pulse 130; Resp 19; Temp 98.6; Pulse Ox 99% on R/A; ea 22:30 BP 116 / 84 (art line/); Pulse 122; Resp 22; Pulse Ox 100% on R/A; ll2 01/03 00:23 BP 121 / 75; Pulse 89; Resp 16; Pulse Ox 99% on R/A; ll2 00:30 BP 108 / 75; Pulse 81; Resp 16; Pulse Ox 99% on R/A; ll2 01:30 BP 101 / 66; Pulse 77; Resp 16; Pulse Ox 97% on R/A; ll2 02:30 BP 98 / 66; Pulse 65; Resp 14; Pulse Ox 97% on R/A; ll2 MDM: 01/02 21:45 Patient medically screened. snw 01/03 01:00 Counseling: I had a detailed discussion with the patient and/or guardian regarding: the snw historical points, exam findings, and any diagnostic results supporting the discharge/admit diagnosis, lab results, radiology results, the need for further work-up and treatment in the hospital. Physician consultation: Farhat Kruger was called at 01:35, was contacted at 01:00, regarding admission, after a discussion of the case, a recommendation for transfer for higher level of care is made. 01:32 Data reviewed: vital signs, nurses notes. Data interpreted: Pulse oximetry: on room air snw is 99 %. Interpretation: normal. Counseling: I had a detailed discussion with the patient and/or guardian regarding: the historical points, exam findings, and any diagnostic results supporting the discharge/admit diagnosis, lab results, radiology results, the need to transfer to another facility. Physician consultation: Dr Santiago was called at 01:34, was contacted at 01:34, regarding regarding transfer, to [facility]. would like admission per Dr. Dr GOODWIN. 01/02 21:44 Order name: Basic Metabolic Panel; Complete Time: 23:08 snw 01/02 21:44 Order name: CBC with Diff; Complete Time: 23:12 snw 01/02 21:44 Order name: Hepatic Function; Complete Time: 23:08 snw 01/02 21:44 Order name: Lipase; Complete Time: 23:08 snw 01/02 21:50 Order name: Magnesium; Complete Time: 23:15 snw 01/02 21:50 Order name: Phosphorus; Complete Time: 23:15 snw 01/02 21:51 Order name: TS; Complete Time: 23:19 snw 01/02 21:51 Order name: TSH; Complete Time: 23:15 snw 01/02 22:28 Order name: Glucose, Ancillary Testing; Complete Time: 22:31 EDMS 01/03 00:39 Order name: Urine Culture snw 01/03 00:39 Order name: Urine Microscopic Only snw 01/03 00:54 Order name: Urine Dipstick--Ancillary (enter results); Complete Time: 01:09 tt3 01/03 03:23 Order name: SARS-COV-2 RT PCR EDMS 01/02 21:44 Order name: IV Saline Lock; Complete Time: 22:29 snw 01/02 21:44 Order name: Labs collected and sent; Complete Time: 22:29 snw 01/02 21:44 Order name: CT Abd/Pelvis - IV Contrast Only snw 01/02 21:50 Order name: FSBS; Complete Time: 22:29 snw 01/03 00:39 Order name: Urine Dipstick-Ancillary (obtain specimen); Complete Time: 00:57 snw Administered Medications: 01/02 21:48 CANCELLED (Patient Refused): morphine 4 mg IVP once; RASS on ADMIN: Combtv4, Very snw Agttd3, Agttd2, Rstlss1, AlertClm0, Drwsy-1, Lt Sdtn-2, Mod Sdtn-3, Dp Sdtn-4, UnArsble-5 22:00 Drug: Phenergan 12.5 mg Route: IVP; Site: right antecubital; ll2 23:00 Follow up: Response: No adverse reaction ll2 22:00 Drug: ProTONIX 8 mg/hr Route: IV; Rate: 25 ml/hr; Site: right antecubital; ll2 22:50 Drug: NS 0.9% 1000 ml Route: IV; Rate: 1 bolus; Site: right antecubital; ll2 23:50 Follow up: Response: No adverse reaction; IV Status: Completed infusion; IV Intake: ll2 1000ml 22:50 Drug: Dilaudid 1 mg Route: IVP; Site: right antecubital; 2 23:20 Follow up: Response: No adverse reaction; RASS: Alert and Calm (0) 2 22:50 Drug: Thiamine 100 mg Route: IV; Rate: bolus; Site: right antecubital; ll2 23:50 Follow up: Response: No adverse reaction ll2 22:50 Drug: foLIC Acid 1 mg Route: IVPB; Site: right antecubital; 2 23:50 Follow up: Response: No adverse reaction 2 23:24 Drug: NS 0.9% 1000 ml Route: IV; Rate: 1 bolus; Site: right forearm; ll2 01/03 00:25 Follow up: Response: No adverse reaction; IV Status: Completed infusion; IV Intake: ll2 1000ml 00:53 Drug: NS 0.9% 1000 ml Route: IV; Rate: 125 ml/hr; Site: right antecubital; 2 Disposition: 07:20 Co-signature as Attending Physician, Sharif Adkins MD. [email or web address] Disposition: 01/04/20 01:54 Transfer ordered to [facility]. Diagnosis is Acute on chronic pancreatitis. - Reason for transfer: Higher level of care. - Accepting physician is Dr. Bell. - Condition is Stable. - Problem is an acute exacerbation. - Symptoms have improved. Signatures: Dispatcher [employer] EDKhadar Ch RN RN sg Waters, Shelly, AJITH-C [employer]-Aniyah Goldberg RN RN [facility] Sharif Adkins MD MD 7 Corrections: (The following items were deleted from the chart) 01/02 21:48 21:45 morphine 4 mg IVP once; RASS on ADMIN: Combtv4, Very Agttd3, Agttd2, Rstlss1, snw AlertClm0, Drwsy-1, Lt Sdtn-2, Mod Sdtn-3, Dp Sdtn-4, UnArsble-5 ordered. snw 01/03 01:21 01/02 21:40 PMHx: Autism- Nonverbal; sg sg 01/03 01:54 01:32 01/04/2020 01:32 Transfer ordered to [facility]. snw Diagnosis is Acute on chronic pancreatitis. Reason for transfer: Higher level of care. Accepting physician is Dr. Santiago. Condition is Stable. Problem is an acute exacerbation. Symptoms have improved. snw 02:21 00:43 CORONAVIRUS+MR.LAB.BRZ ordered. EDMS EDMS 03:47 01/02 21:40 Allergies: Vancomycin; sg ll2 01/03 03:47 01/02 21:40 Allergies: Zosyn; sg ll2 01/03 03:48 01:54 01/04/2020 01:54 Transfer ordered to [facility]. ll2 Diagnosis is Acute on chronic pancreatitis. Reason for transfer: Higher level of care. Accepting physician is Dr. Bell. Condition is Stable. Problem is an acute exacerbation. Symptoms have improved. snw
[2020-01-04 02:11] LABS: Urine Bacteria <20 /HPF (NONE SEEN); Urine RBC NONE SEEN /HPF (NONE SEEN)
[2020-01-04 07:20] VITALS: O2SAT 97
[2020-01-04 07:22] VITALS: BP 98/66
--- NOTE | 2020-01-05 10:40 | RAD REPORT ---
EXAM DESCRIPTION: CT - Abdomen Pelvis W Contrast - 01/04/2020 4:01 am CLINICAL HISTORY: Abdominal pain. COMPARISON: CT abdomen and pelvis with contrast 10/13/2019 TECHNIQUE: Axial CT imaging of the abdomen and pelvis performed with intravenous contrast. Reformatt ed coronal and sagittal images reviewed. A dose reduction technique was utilized with automated exposure control according to patient size. FINDINGS: Clear lung bases. There is trace left pleural fluid. Heart is normal in size. There is a very small pericardial effusion. Unremarkable liver contour. The liver appears mildly decreased attenuation due to fatty infiltratio n. There is a punctate calcified granuloma within the right lobe. There is mild intrahepatic bili zay ductal dilatation, similar to reference exam. The gallbladder is contracted. There is minimal pericholecystic edema. The spleen has been resected. There is edema within the surgical bed. T here is diffuse peripancreatic edema which has decreased. There is edema throughout the pancreas, a lso improving. There is mild proximal pancreatic duct dilatation up to 7 mm with no obstructing sto ne. Normal adrenal glands. Normal right and left kidney. Both kidneys demonstrate normal enhanc ement. There is mild fullness of the right and left renal pelvis with no obstructing stone. Sasha l caliber aorta and inferior vena cava. No periaortic adenopathy. There is an enlarged precaval l ymph node, 2.6 x 0.9 x 1.6cm. Mesenteric vessels are patent. There is debris within the dependent gastric cardia. Mild thickening of the distal gastric antrum w ith thickening of the duodenal bulb and descending segment of the duodenum noted. There is periduod enal edema around the thickened segments. The edema extends into the right paracolic gutter. The remaining small bowel loops appear normal. Appendix is nonvisualized. Mild thickening of the asce nding colon with pericolonic edema. There is a large amount of fecal loading within the rectum. N o proximal obstruction. There is no free air. There are numerous varices within the left upper quadrant in the gastrohepati c ligament. The bladder appears normal. Normal prostate. There is trace pelvic free fluid. Unremarkable lumbosacral spine. Bony pelvis and hips are unremarkable. IMPRESSION: 1. Status post splenectomy with edema and minimal fluid in the surgical bed. 2. Ongoing pancreatitis with diffuse peripancreatic edema and mild proximal pancreatic duct dilatat ion. The pancreatic parenchyma enhancement has improved with no evidence of necrosis. No pseudocy st seen. 3. Antral gastritis with duodenitis. 4. Persistent stable mild intrahepatic and extrahepatic biliary duct dilatation to the level of the ampulla. 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 No discrete mass see n. No ductal stone. Gallbladder is collapsed without evidence of gallstones. 5. Mild colitis involving the ascending colon. 6. Rectal fecal impaction without obstruction. 7. Small pericardial effusion. Trace left pleural effusion. Electronically signed by: Елена Stroud DO 01/04/2020 12:25 AM LAY OUT HELPER Due to temporary technical issues with the PACS/Fluency reporting system, reports are being signed by the in house radiologist without review as a courtesy to ensure prompt reporting. The interpreting r adiologist is fully responsible for the content of the report.
== END 2020-01-04 03:48 | disposition short-term general hospital (02) ==
LOC: ER 21:28
DX: K85.90 Acute pancreatitis without necrosis or infection, unspecified (principal); K86.1 Other chronic pancreatitis; Z20.828 Contact with and (suspected) exposure to other viral communicable diseases; Z88.3 Allergy status to other anti-infective agents; Z88.8 Allergy status to other drugs, medicaments and biological substances
CPT/HCPCS: 96361; 87088; 85025; 87086; 80048; 36415; 86900; 83735; 86850; 84100; 86901; 82947; 80076; 84443; 83690; 74177; 96375; 96374; 99285; U0003; Q9967; J2550; J3411; C9113 ×2; J1170; J7050; J7030 ×2; 81003; 81015

== ENCOUNTER 2020-03-16 12:30 | Emergency (ER) | payer OTHER ==
[2020-03-16 13:58] LABS: Absolute Lymphocytes (CBC) 1.3 K/uL (0.7-4.9); Basophils % 0.4 % (0-1.3); Hematocrit 35.3 % (39.6-49.0); Lymphocytes % 12.7 % (15.3-44.8); MPV 8.7 fL (7.6-11.3); RBC Red Blood Cell Count 3.91 M/uL (4.33-5.43)
[2020-03-16 14:16] LABS: ALT/SGPT 18 U/L (12-78); AST/SGOT 17 U/L (15-37); Albumin 1.9 g/dL (3.4-5.0); Alkaline Phosphatase 341 U/L (45-117); BUN Blood Urea Nitrogen 10 mg/dL (7-18); Bicarbonate 29 mmol/L (21-32); Bilirubin Direct 0.2 mg/dL (0-0.2); Bilirubin Total 0.4 mg/dL (0.2-1.0); Glucose Level 77 mg/dL (74-106); Lipase 284 U/L (73-393); Potassium 4.1 mmol/L (3.5-5.1); Protein, Total 5.8 g/dL (6.4-8.2); Sodium Level 147 mmol/L (136-145)
--- NOTE | 2020-03-16 14:34 | RAD REPORT ---
EXAM DESCRIPTION: CT - Abdomen Pelvis W Contrast - 03/16/2020 2:12 pm CLINICAL HISTORY: ABD PAIN COMPARISON: Abdomen Pelvis W Contrast dated 01/03/2020 TECHNIQUE: Single axial [address] imaging of the abdomen and pelvis was performed following 100 ml non -ionic IV contrast. Hand injection was utilized due to limited IV access. All CT scans are performed using dose optimization technique as appropriate and may include automated exposure control or mA/KV adjustment according to patient size. FINDINGS: No suspicious findings in the lung bases. No focal liver lesion identified. Gallbladder is absent. Intrahepatic biliary tree dilatation is pres ent. The common bile duct is dilated to 11 mm which is upper normal for a post cholecystectomy patien t. Wall of the biliary tree appear slightly thickened and edematous. Appearance is similar to the Dec study. Spleen is absent. Pancreas remains abnormal. No solid mass of the pancreatic parenchyma identified. There is a 2.8 x 1. 7 centimeter fluid collection at the tail of the pancreas abutting the posterior diaphragm border. Th ere is a second 2.6 x 1.7 centimeter fluid collection along the superior tail of the pancreas. These are both enlarged from December that are probably pseudocysts. Harvey are relatively thick. Abscess ca nnot be excluded. A 4 centimeter thin-walled fluid collection is present in the lateral subdiaphragma tic region new or enlarged from comparison. Fluid and stranding surrounds the pancreatic parenchyma. Symmetric renal function is seen with no hydronephrosis or suspicious renal mass. No pyelonephritis o r acute parenchymal process. Bladder is contracted limiting assessment. No adrenal abnormalities. Gastric harvey are thickened and edematous. Multiple varices are present noted near the GE junction al bassem the lesser curvature of the stomach. Surgical clips along the wall of the stomach is again noted. Patient has significant wall thickening and edema of the gastric antrum continuing into the duodenal bulb and proximal C-loop. This is similar to comparison. Jejunum and ileum show no dilatation or sig nificant finding. No appendicitis findings. Circumferential wall thickening is present in the hepatic flexure of the colon extending to the splenic flexure. There is additional circumferential wall thic kening and edema of the sigmoid colon and prominent circumferential wall thickening of the rectum. Small amount of free intraperitoneal fluid is present. No free air or pneumatosis. No hernia, mass o r bulky lymphadenopathy. No suspicious bony findings. IMPRESSION: Ongoing pancreatitis changes are present with diffuse peripancreatic edema and enlargeme nt of 2 fluid collections at the pancreatic tail up to 2.8 cm in size. These are probably pseudocyst . The thickness of the wall precludes the exclusion of small abscess formation. Significant antral gastritis and duodenitis findings similar to comparison. Overall gastric harvey are prominent. Significant colitis pattern involving the sigmoid and rectum portions of the colon as well as the hep atic flexure to splenic flexure. These antrum, duodenum and colon findings may all be secondary respo nse to the pancreatitis. Intrahepatic and extrahepatic biliary tree dilatation in a post cholecystectomy patient. Dilatation i s similar to December 2019.
--- NOTE | 2020-03-16 14:59 | EDPHYS ---
Physician Documentation [facility] Name: Jann Alvarez Age: 30 yrs Sex: Male : 1990 Arrival Date: 03/16/2020 Time: 12:36 Bed 5 Private MD: ALFREDO Physician Rush Briones HPI: 03/16 13:06 This 30 yrs old Male presents to ER via EMS with complaints of Abdominal Pain. pm1 13:06 The patient presents with abdominal pain in the upper abdomen. Onset: The pm1 symptoms/episode began/occurred 3 day(s) ago. The symptoms do not radiate. Associated signs and symptoms: Pertinent positives: nausea and vomiting, Pertinent negatives: chest pain, diarrhea, fever, shortness of breath. Modifying factors: The symptoms are alleviated by nothing, the symptoms are aggravated by nothing. Severity of pain: in the emergency department the pain is unchanged. The patient has experienced similar episodes in the past, multiple times, today's symptoms are similar, to previous pancreatitis. Patient has been doing well for the past two months without abdominal pain. Historical: - Allergies: 12:47 meropenem; hb 12:47 Vancomycin; hb 12:47 Zosyn; hb - PMHx: 12:47 Autism; Gastric varices; Lupus; Pancreatitis; SEVERE PANCREATIC NECROSIS; hb - PSHx: 12:47 Cholecystectomy; splenectomy; hb - Immunization history:: Adult Immunizations up to date. - Social history:: Smoking status: Patient denies any tobacco usage or history of. ROS: 13:06 Constitutional: Negative for fever, chills, and weight loss. pm1 13:06 Cardiovascular: Negative for chest pain, palpitations, and edema, Respiratory: Negative for shortness of breath, cough, wheezing, and pleuritic chest pain, Back: Negative for injury and pain, MS/Extremity: Negative for injury and deformity, Skin: Negative for injury, rash, and discoloration. 13:06 Neuro: Negative for headache, weakness, numbness, tingling, and seizure. 13:06 Abdomen/GI: Positive for abdominal pain, nausea and vomiting, green soft stool, Negative for diarrhea, constipation. Exam: 13:06 Constitutional: This is a well developed, well nourished patient who is awake, alert, pm1 and in no acute distress. Head/Face: Normocephalic, atraumatic. 13:06 Back: No spinal tenderness. No costovertebral tenderness. Full range of motion. Skin: Warm, dry with normal turgor. Normal color with no rashes, no lesions, and no evidence of cellulitis. MS/ Extremity: Pulses equal, no cyanosis. Neurovascular intact. Full, normal range of motion. 13:06 Cardiovascular: Rate: normal, Rhythm: regular, Pulses: no pulse deficits are appreciated, Heart sounds: normal, normal S1and S2, Edema: is not appreciated. 13:06 Respiratory: Exam negative for acute changes, respiratory distress, shortness of breath, Breath sounds: are clear throughout. 13:58 Abdomen/GI: Rectal exam: Stool: guaiac negative, green, soft. pm1 Vital Signs: 12:42 Pain 5/10; hb 12:46 BP 102 / 73; Pulse 74; Resp 16; Temp 97.9; Pulse Ox 99% on R/A; Pain 5/10; hb 14:26 BP 107 / 74; Pulse 66; Resp 16; Pulse Ox 99% ; sv 16:00 BP 113 / 81; Pulse 65; Resp 16; Pulse Ox 100% ; sv 17:30 BP 111 / 82; Pulse 73; Resp 16; Pulse Ox 100% ; sv 18:15 BP 119 / 84; Pulse 88; Resp 18; Pulse Ox 100% on R/A; ss 19:26 BP 105 / 73; Pulse 70; Resp 18; Pulse Ox 98% on R/A; ea 20:45 BP 104 / 66; Pulse 68; Resp 18; Pulse Ox 98% on R/A; ea 12:46 [place] (FACES) hb Procedures: 15:00 Peripheral line: by aseptic technique a peripheral line was placed in the left external rachelle jugular vein. MDM: 12:38 Patient medically screened. [facility] 14:46 ED course: Discussed patient presentation and w/u with attending MD, recommends pm1 Dean Fuller, and transfer to [facility]. GI - Dr. Santiago . 14:53 Data reviewed: vital signs. pm1 14:53 Data interpreted: Pulse oximetry: on room air is 99 %. Interpretation: normal. pm1 14:53 Counseling: I had a detailed discussion with the patient and/or guardian regarding: the pm1 historical points, exam findings, and any diagnostic results supporting the discharge/admit diagnosis, lab results, radiology results, the need to transfer to another facility. 17:00 Physician consultation: Farhat Kruger [facility] , Dr. Elmore consulted prior to pm1 discussing possible admission. 17:03 Physician consultation: BARN OPERATOR for Dr. Ramírez Bustamante was called at 17:03, was contacted at pm1 17:03, regarding consult, patient's condition, After consultation said that Dr Elmore can see the patient. 17:20 Physician consultation: Dr. Kruger consulted with Dr. Elmore and Dr. Elmore pm1 requested patient be transferred for higher level of care to due to colitis and the presence of pseudocysts and their enlargement from prior CT. 17:58 Physician consultation: Randall Garcianataliazully was contacted at 17:59, regarding regarding pm1 transfer, patient's condition, and will see patient. 03/16 12:43 Order name: Basic Metabolic Panel; Complete Time: 14:34 pm1 03/16 12:43 Order name: CBC with Diff; Complete Time: 14:34 pm1 03/16 12:43 Order name: Hepatic Function; Complete Time: 14:34 pm1 03/16 12:43 Order name: Lipase; Complete Time: 14:34 pm1 03/16 12:43 Order name: CT Abd/Pelvis - IV Contrast Only; Complete Time: 14:42 pm1 03/16 16:51 Order name: SARS-COV-2 RT PCR; Complete Time: 17:56 EDMS 03/16 17:22 Order name: CREATININE WHOLE BLOOD EDMS 03/16 17:22 Order name: CREATININE WHOLE BLOOD; Complete Time: 17:56 EDMS 03/16 12:43 Order name: IV Saline Lock; Complete Time: 14:51 pm1 03/16 12:43 Order name: Labs collected and sent; Complete Time: 14:51 pm1 03/16 14:46 Order name: NPO; Complete Time: 14:50 pm1 Administered Medications: 15:00 Drug: NS 0.9% 1000 ml Route: IV; Rate: 1000 ml; Site: left jugular; ss 17:15 Follow up: IV Status: Completed infusion; IV Intake: 1000ml ss 15:00 Drug: Zofran (Ondansetron) 4 mg Route: IVP; Site: left jugular; ss 15:30 Follow up: Response: No adverse reaction; Nausea is decreased ss 15:02 Drug: Dilaudid 0.5 mg Route: IVP; Site: left jugular; ss 15:15 Follow up: Response: No adverse reaction; Pain is decreased ss 15:05 Drug: Flagyl 500 mg Volume: 100 ml; Route: IVPB; Rate: 200 ml/hr; Infused Over: 30 ss mins; Site: left jugular; 15:45 Follow up: IV Status: Completed infusion ss 16:10 Drug: LevaQUIN 500 mg Volume: 100 ml; Route: IVPB; Infused Over: 60 mins; Site: left ss jugular; 17:10 Follow up: IV Intake: 100ml ss 17:10 Follow up: IV Status: Completed infusion ss 16:52 Drug: Zofran (Ondansetron) 4 mg Route: IVP; Site: left jugular; sv 17:32 Follow up: Response: No adverse reaction; Nausea is decreased ss 17:33 Drug: NS 0.9% 1000 ml Route: IV; Rate: 125 ml/hr; Site: left jugular; ss 18:13 Follow up: IV Status: Infusion continued upon transfer ss 18:16 Drug: Dilaudid 0.5 mg Route: IVP; Site: left jugular; ss 19:36 Follow up: Response: No adverse reaction; Pain is decreased ss Disposition: 14:58 Co-signature as Attending Physician, Rush Briones MD I agree with the assessment and rachelle plan of care. Disposition: 03/16/20 18:40 Transfer ordered to [facility]. Diagnosis are Acute on chronic pancreatitis, Pseudocyst of pancreas, Colitis, Coronavirus infection, unspecified. - Reason for transfer: Higher level of care. - Accepting physician is Randall Alicea MD. - Condition is Stable. - Problem is new. - Symptoms have improved. Signatures: Dispatcher [employer] EDMS Shi Ortega RN RN sv Anderson, Corey, MD MD cha Smirch, Shelby, RN RN ss Marinas, Patrick, ALEXIS BARN OPERATOR pm1 Perla Barragan RN RN hb Andressa Gomez RN RN ea Corrections: (The following items were deleted from the chart) 15:50 12:46 CORONAVIRUS+MR.LAB.BRZ ordered. EDMS EDMS 17:18 14:58 03/16/2020 14:58 Transfer ordered to [facility]. pm1 Diagnosis is Acute on chronic pancreatitis. Reason for transfer: Higher level of care. Accepting physician is . Condition is Stable. Problem is new. Symptoms have improved. pm1 17:20 17:19 Hospitalization Ordered by Farhat Kruger for Inpatient Admission. Preliminary pm1 diagnosis is Acute on chronic pancreatitis. Bed requested for Telemetry/MedSurg (Inpatient). Status is Inpatient Admission. Condition is Stable. Problem is new. Symptoms have improved. pm1 17:25 17:20 Physician consultation: Dr. Kruger consulted with Dr. Elmore and Dr. Elmore pm1 requested patient be transferred for higher level of care to due to presence of pseudocysts and their enlargement, pm1 17:25 17:23 03/16/2020 17:19 Hospitalization Ordered by Farhat Kruger for Inpatient pm1 Admission. Preliminary diagnosis is Acute on chronic pancreatitis; Pseudocyst of pancreas. Bed requested for Telemetry/MedSurg (Inpatient). Status is Inpatient Admission. Condition is Stable. Problem is new. Symptoms have improved. pm1 18:39 17:25 03/16/2020 17:19 Hospitalization Ordered by Farhat Kruger for Inpatient pm1 Admission. Preliminary diagnosis is Acute on chronic pancreatitis; Pseudocyst of pancreas; Colitis. Bed requested for Telemetry/MedSurg (Inpatient). Status is Inpatient Admission. Condition is Stable. Problem is new. Symptoms have improved. pm1 20:18 12:46 UA MICROSCOPIC+U.LAB.BRZ ordered. EDMS EDMS 20:58 18:40 03/16/2020 18:40 Transfer ordered to [facility]. ea Diagnosis is Acute on chronic pancreatitis; Pseudocyst of pancreas; Colitis; Coronavirus infection, unspecified. Reason for transfer: Higher level of care. Accepting physician is Randall Alicea MD. Condition is Stable. Problem is new. Symptoms have improved. pm1
--- NOTE | 2020-03-16 14:59 | ER ---
Nurse's Notes [facility] Name: Jann Alvarez Age: 30 yrs Sex: Male : 1990 Arrival Date: 03/16/2020 Time: 12:36 Bed 5 Private MD: Diagnosis: Acute on chronic pancreatitis;Pseudocyst of pancreas;Colitis;Coronavirus infection, unspecified Presentation: 03/16 12:42 Chief complaint: EMS states: Upper abdominal pain x 2-3 days. Mother reports vomiting hb and dark greenish colored stools. Coronavirus screen: At this time, the client does not indicate any symptoms associated with coronavirus-19. Ebola Screen: No symptoms or risks identified at this time. 12:42 Method Of Arrival: EMS: [facility] 12:46 Initial Sepsis Screen: Does the patient meet any 2 criteria? No. Patient's initial hb sepsis screen is negative. Does the patient have a suspected source of infection? No. Patient's initial sepsis screen is negative. Risk Assessment: Do you want to hurt yourself or someone else? Patient reports no desire to harm self or others. Onset of symptoms was March 14, 2020. 12:46 Acuity: KIMBER 3 hb Historical: - Allergies: 12:47 meropenem; hb 12:47 Vancomycin; hb 12:47 Zosyn; hb - PMHx: 12:47 Autism; Gastric varices; Lupus; Pancreatitis; SEVERE PANCREATIC NECROSIS; hb - PSHx: 12:47 Cholecystectomy; splenectomy; hb - Immunization history:: Adult Immunizations up to date. - Social history:: Smoking status: Patient denies any tobacco usage or history of. Screenin:30 Abuse screen: Denies threats or abuse. Denies injuries from another. Nutritional ss screening: No deficits noted. Tuberculosis screening: Never had TB. Fall Risk None identified. Assessment: 13:30 General: Appears in no apparent distress. comfortable, Behavior is cooperative, quiet, ss Denies fever. General: Pt has history of autism and has flat affect. Is baseline for patient. Mother ( POA) remains at bedside. . Pain: Complains of pain in abdomen Pain currently is 5 out of 10 on a pain scale. Pain began 2-3 days ago. Is continuous. Neuro: Level of Consciousness is awake, alert, obeys commands, Pupils are PERRLA. Cardiovascular: Pulses are palpable in right radial artery and left radial artery. Respiratory: Airway is patent Respiratory effort is even, unlabored, Respiratory pattern is regular, symmetrical. GI: Bowel sounds present X 4 quads. Abd is soft and non tender X 4 quads. Patient currently denies diarrhea. : No signs and/or symptoms were reported regarding the genitourinary system. EENT: Oral mucosa is moist. Throat is clear. Derm: Skin is intact, is healthy with good turgor, Skin is dry, Skin is normal, pale, Skin temperature is warm. Musculoskeletal: Circulation, motion, and sensation intact. 14:30 Reassessment: No changes from previously documented assessment. Patient and/or family ss updated on plan of care and expected duration. Pain level reassessed. 15:30 Reassessment: Patient appears in no apparent distress at this time. Mother remains at ss bedside. 16:50 Reassessment: Pt actively vomiting, informed Romain NAVIGATION TEACHER. Medication order received. sv 18:45 Reassessment: Report called to BRISA Henderson. States that mother will not be able to stay ss with patient in hospital and rather will be one on one with a nurse. Mother notified and is hesitant to move forward with transfer. When asked if pain has improved after last Dilaudid administration, patient states, "yes". Appears comfortable at this time. 19:15 Reassessment: Spoke with transfer center medical director at [facility] to see if they can make ss an exception having mother stay during admission. Approval given by leadership for mother to stay with patient. EMS states that they will agree to transfer mother with patient. 19:25 Reassessment: Patient and/or family updated on plan of care and expected duration. Pain ea level reassessed. Pt resting in bed, alert pt is able to answer simple yes and no questions. Respirations even and unlabored. Mother at bedside. 20:40 Reassessment: pt mother reports she has all the required belongings for patient sg transfer to receiving facility, EMS has been notified, awaiting transport at this time. 20:57 Reassessment: Pt left ED via stretcher per EMS. Pt accompanied by mother. ea Vital Signs: 12:42 Pain 5/10; hb 12:46 BP 102 / 73; Pulse 74; Resp 16; Temp 97.9; Pulse Ox 99% on R/A; Pain 5/10; hb 14:26 BP 107 / 74; Pulse 66; Resp 16; Pulse Ox 99% ; sv 16:00 BP 113 / 81; Pulse 65; Resp 16; Pulse Ox 100% ; sv 17:30 BP 111 / 82; Pulse 73; Resp 16; Pulse Ox 100% ; sv 18:15 BP 119 / 84; Pulse 88; Resp 18; Pulse Ox 100% on R/A; ss 19:26 BP 105 / 73; Pulse 70; Resp 18; Pulse Ox 98% on R/A; ea 20:45 BP 104 / 66; Pulse 68; Resp 18; Pulse Ox 98% on R/A; ea 12:46 [place] (FACES) hb ED Course: 12:36 Patient arrived in ED. bd 12:38 Romain Irving NP is PHCP. pm1 12:38 Rush Briones MD is Attending Physician. pm1 12:47 Triage completed. hb 12:47 Arm band placed on. hb 13:30 Patient has correct armband on for positive identification. Bed in low position. Call ss light in reach. Side rails up X2. Adult w/ patient. director marketing on. Pulse ox on. NIBP on. 13:45 Inserted saline lock: 20 gauge in left EJ, using aseptic technique. ,using aseptic sv technique. done by Dr Briones Blood collected. 14:12 CT Abd/Pelvis - IV Contrast Only In Process Unspecified. EDMS 14:50 Kimberly Brar RN is Primary Nurse. ss 17:18 Farhat Kruger is Hospitalizing Provider. pm1 17:25 initiated transfer to [facility]. bd 19:22 Primary Nurse role handed off by Kimberly Brar RN mw2 19:24 Andressa Gomez RN is Primary Nurse. ea 20:57 No provider procedures requiring assistance completed. Patient transferred, IV remains ea in place. Administered Medications: 15:00 Drug: NS 0.9% 1000 ml Route: IV; Rate: 1000 ml; Site: left jugular; ss 17:15 Follow up: IV Status: Completed infusion; IV Intake: 1000ml ss 15:00 Drug: Zofran (Ondansetron) 4 mg Route: IVP; Site: left jugular; ss 15:30 Follow up: Response: No adverse reaction; Nausea is decreased ss 15:02 Drug: Dilaudid 0.5 mg Route: IVP; Site: left jugular; ss 15:15 Follow up: Response: No adverse reaction; Pain is decreased ss 15:05 Drug: Flagyl 500 mg Volume: 100 ml; Route: IVPB; Rate: 200 ml/hr; Infused Over: 30 ss mins; Site: left jugular; 15:45 Follow up: IV Status: Completed infusion ss 16:10 Drug: LevaQUIN 500 mg Volume: 100 ml; Route: IVPB; Infused Over: 60 mins; Site: left ss jugular; 17:10 Follow up: IV Intake: 100ml ss 17:10 Follow up: IV Status: Completed infusion ss 16:52 Drug: Zofran (Ondansetron) 4 mg Route: IVP; Site: left jugular; sv 17:32 Follow up: Response: No adverse reaction; Nausea is decreased ss 17:33 Drug: NS 0.9% 1000 ml Route: IV; Rate: 125 ml/hr; Site: left jugular; ss 18:13 Follow up: IV Status: Infusion continued upon transfer ss 18:16 Drug: Dilaudid 0.5 mg Route: IVP; Site: left jugular; ss 19:36 Follow up: Response: No adverse reaction; Pain is decreased ss Intake: 17:10 IV: 100ml; Total: 100ml. ss 17:15 IV: 1000ml; Total: 1100ml. ss Outcome: 14:58 ER care complete, transfer ordered by MD. pm1 17:19 Decision to Hospitalize by Provider. pm1 18:40 ER care complete, transfer ordered by MD. pm1 20:57 Transferred by ground EMS to [facility], Transfer form completed. ea 20:57 Condition: stable 20:57 Instructed on the need for transfer. 20:58 Patient left the ED. ea Signatures: Dispatcher [employer] EDMS Rosalinda Perry Stephanie RN Khadar Finley RN RN sg Smirch, Shelby, RN RN ss Marinas, Patrick, ALEXIS NAVIGATION TEACHER pm1 Perla Barragan RN RN hb Antunez, Elena, RN RN ea [place], MyKena mw2 Corrections: (The following items were deleted from the chart) 12:48 12:46 BP 102 / 73; Pulse 74bpm; Resp 16bpm; Pulse Ox 99% RA; Temp 97.9F; Pain 5/10, hb [place] (FACES) ; hb 15:47 15:00 Zofran (Ondansetron) 4 mg IVP in left antecubital ss ss
[2020-03-16] MEDS ORDERED: ONDANSETRON 4 MG/2 ML VIAL ONE ×2 (15:11→17:05)
[2020-03-16] MEDS ORDERED: HYDROMORPHONE HCL 0.5 MG/0.5 ML INJ ONE ×2 (15:11→18:30)
[2020-03-16] MEDS ORDERED: METRONIDAZOLE 500mg IVPB 500 MG/100 ML BAG IV ONE (15:12)
[2020-03-16] MEDS ORDERED: NA CHLORIDE 0.9% 2,000 ML ONE (15:12)
[2020-03-16] MEDS ORDERED: Levofloxacin500mg IV 500 MG/100 ML BAG IV ONE (15:12)
[2020-03-16 21:04] VITALS: TEMP 97.9
[2020-03-16 21:10] VITALS: BP 105/73; O2SAT 98
--- OUTSIDE RECORDS SUMMARY | 2020-03-17 09:30 | XMS REPORT | Clinical Summary ---
:1990 Author Organization [facility] Address [address] [place] [address] Care Team Providers Name Role Phone Montrell Coughlin Primary Care Provider [facility] Unavailable Allergies Active Allergy Reactions [...] Status nystatin Apply 15 g 0 06/16/2018 06/16/19 (MYCOSTATIN) topically 2 20 100,000 unit/gram (two) times powder daily. ferrous sulfate 325 Take 1 tablet 1 01/19/2019 Suspended (65 FE) MG tablet by mouth 2 (two) times daily. ondansetron Take 1 tablet 0 08/01/2018 Edna pended (ZOFRAN-ODT) 4 MG by mouth every disintegrating 8 (eight) tablet hours as needed. pantoprazole Take 40 mg by 1 11/27/2018 12/07/19 Di scontinued (PROTONIX) 40 MG mouth 2 (two) 20 (Reorder) tablet times daily . docusate sodium Take 100 mg by 0 07/19/2018 10/13/19 Discontinued (COLACE) 100 MG mouth as 20 capsule needed. metroNIDAZOLE Take 500 mg by 0 10/13/19 D iscontinued (FLAGYL) 500 MG mouth 3 20 tablet (three) times daily. traMADoL (ULTRAM) Take 50 mg by 0 10/24/19 Discontinued 50 mg tablet mouth every 6 20 (Re order) (six) hours as needed for Pain. ursodioL (ACTIGALL) Take 500 mg by 0 Suspended 500 MG tablet mouth daily. levoFLOXacin Take 750 mg by 0 10/24/19 Di scontinued (LEVAQUIN) 750 MG mouth daily. 20 (Stop Taking at tablet Discharge) midodrine Take 5 mg by 0 10/24/19 Discont inued (PROAMATINE) 5 MG mouth 3 20 (R eorder) tablet (three) times daily. esomeprazole Take 40 mg by 0 09/26/2019 10/24/19 Di scontinued (NEXIUM) 40 MG mouth daily. 20 (S top Taking at capsule Discharge) midodrine Take 2 tablets 90 tablet 0 10/24/2019 12/18/19 Disc ontinued (PROAMATINE) 5 MG (10 mg total) 20 (Reorder) tablet by mouth 3 (three) times daily. traMADoL (ULTRAM) Take 2 tablets 30 tablet 0 10/24/2019 Discontinued 50 mg tablet (100 mg total) 20 (R eorder) by mouth every 6 (six) hours as needed for Pain. Max Daily Amount: 400 mg senna (SENOKOT) 8.6 Take 2 tablets 60 tablet 0 10/24/201910/0620 Suspended mg tablet (17.2 mg 21 total) by mouth nightly. Additional Information gabapentin Take 2 capsules 180 capsule 0 10/24/2019 10/23/2020 Suspended (NEURONTIN) 100 MG (200 mg total) by capsule mouth 3 (three) times daily. Additional Information sucralfate Take 10 mLs 420 mL 0 12/07/2019 01/08/2020 Disco ntinued (Stop (CARAFATE) 100 (1 g total) Jorge ing at mg/mL suspension by mouth Dis charge) every 6 (six) hours for 30 days. pantoprazole Take 1 tablet 168 tablet 0 12/07/2019 12/18/2019 Discontinued (PROTONIX) 40 MG (40 mg total) (Reorder) tablet by mouth 2 (two) times daily for 84 days. traMADoL (ULTRAM) Take 2 30 tablet 0 12/07/2019 01/08/2020 Discontinued (Stop 50 mg tablet tablets (100 Taki ng at mg total) by Dischar ge) mouth every 6 (six) hours as needed for Pain for up to 28 days. Max Daily Amount: 400 mg ondansetron Take 4 mg by 0 11/26/2019 12/18/2019 Dis continued (Stop (ZOFRAN) 4 MG mouth every Taki ng at tablet 12 (twelve) Discharg e) hours as needed for Nausea. pantoprazole Take 1 tablet 180 tablet 0 12/18/2019 01/08/2020 Discontinued (Stop (PROTONIX) 40 MG (40 mg total) Taking at tablet by mouth 2 Discharge ) (two) times daily. midodrine Take 1 tablet 90 tablet 0 12/18/2019 Suspe nded (PROAMATINE) 10 MG (10 mg total) tablet by mouth 3 (three) times daily. Additional Information polyethylene glycol Take 17 g by 510 g 0 01/08/20202020 (GLYCOLAX) 17 gram mouth daily for packet 30 days. omeprazole (PriLOSEC) Take 1 capsule 168 capsule 0 01/08/2020 04/01/2020 Suspended 40 MG capsule (40 mg total) by mouth 2 (two) times daily for 84 days. Additional Information ciprofloxacin HCl Take 1 tablet (500 10 tablet 0 01/09/2020 (CIPRO) 500 MG tablet mg total) by mouth 2 (two) times daily for 5 days. metroNIDAZOLE (FLAGYL) Take 1 tablet (500 15 tablet 0 01/09/20 20 01/14/2020 500 MG tablet mg total) by mouth 3 (three) times daily for 5 days. sucralfate (CARAFATE) 1 Take 1 tablet (1 g 120 tablet 0 201902/08/2020 gram tablet total) by mouth 4 (four) times daily for 30 days. ztwpeo-pispmrdt-vahqftt Take 1 capsule by 90 capsule 0 020 02/08/2020 (CREON) 36,000-114,000- mouth 3 (three) 180,000 unit CpDR times daily for 30 capsule days. Lactobacillus Take 2 tablets by 120 tablet 0 01/09/20202020 acidoph-L.bulgar mouth 2 (two) (FLORANEX) 1 million times daily for 30 cell Tab per tablet days. Active Problems Problem Noted Date COVID-19 03/17/2020 Generalized abdominal pain 01/05/2020 Upper GI bleed 12/01/2019 Acute postoperative pain [...] Encounters Date Type Specialty Care Team Description Travel 1 Hospital Encounter General Internal Randall Alicea, Ac jolynn recurrent pancreatitis; 1 Medicine MD PAGANID-19 Julianne, MD Eugene Tanner Jackson, MD Orders Only Internal Medicine Randall Alicea, 1 Anesthesia Event General Internal Glass, Ashley 0 Medicine A., [employer] Hospital Encounter General Internal Brann, Other acute pancreatitis without infection or necrosis; 0 - Medicine Wyatt Generalized abd ominal pain; MD Bishop Leukocytosis, unspecified type; 0 García Menard, Acute recur rent pancreatitis Osman Mojica MD Hoffman, Maria, MD Travel 0 Anesthesia Event Gastroenterology Forrest Abarca 0 MD Brianna Alas Nichole Carrolynn, [employer] Surgery Gastroenterology Marvin Champagne UPPER EN DOSCOPY 0 MD Ankit Hospital Encounter General Internal Horn Duode nal ulcer (Primary Dx); 0 - Medicine Ramiro Gastrointestina l hemorrhage, unspecified gastrointestinal hemorrhage type; MD Dave Hemorrhagic shock (HCC); 0 Mouna, Acute blood los s anemia; Shanti Toro, Epigastric pa in; Acute respiratory insufficiency, postope rative Herve, MD Rj Blancas, MD Evert George, Perla Kwong MD Telephone Critical Care Horn Transfer 0 Dave Mak MD Surgery Gastroenterology Wilmer Santiago UPPER 0 MD Kai ENDOSCOPY,SUBMU COSAL INJECTION Anesthesia Event Gastroenterology Vel Ceciliaaylin 0 MD Jarocho Godwin Monte Dean, MD Hospital Encounter General Internal Du Chavarria, Montrell cute blood loss anemia; 0 - Medicine Dalton Glasgow, Upper GI ble ed; GI bleed requiring more than 4 units of blood in 24 hours, ICU, or surgery; 0 Vinay Brooks Gastrointestina l hemorrhage associated with duodenal ulcer; Mellissa GILES [...] Gastroenterology Marvel, 0 MD Jeremi Hernandes Ludwig, MARTHA Surgery Gastroenterology Wilmer Santiago UPPER 0 MD [...] 0 MD Celia Lab Requisition Lab 0 after 03/16/2019 Immunizations Name Administration Dates Next Due HiB [...] been in contact with No / Unsure 03/17/2020 1:14 AM FUEL CELL REPAIRER someone who was confirmed or suspected to have Coronavirus / COVID-19? Last Filed Vital Signs Vital Sign Reading Time Taken Comments Blood Pressure 102/60 03/17/2020 4:50 AM FUEL CELL REPAIRER Pulse 80 03/17/2020 4:50 AM FUEL CELL REPAIRER Temperature 36.7 C (98 F) 03/17/2020 4:50 AM FUEL CELL REPAIRER Respiratory Rate 18 03/17/2020 4:50 AM FUEL CELL REPAIRER Oxygen Saturation 97% 03/17/2020 4:50 AM FUEL CELL REPAIRER Inhaled Oxygen Concentration 40% 12/14/2019 10:30 AM FUEL CELL REPAIRER Weight 51 kg (112 lb 8 oz) 03/17/2020 12:55 AM FUEL CELL REPAIRER Height 176 cm (5' 9.29") 03/17/2020 12:55 AM FUEL CELL REPAIRER Body Mass Index 16.47 03/17/2020 12:55 AM FUEL CELL REPAIRER Plan of Treatment Health Maintenance Due Date Last Done Comments HEPATITIS C SCREENING 2007 DTAP/TDAP/TD VACCINES (1 - Tdap) 01/25/2008 PNEUMOCOCCAL VACCINE 0-64 YRS (1 of 1 - PPSV23) 12/19/2019 10/24/2019 DEPRESSION SCREENING (12+) 02/06/2020 INFLUENZA VACCINE Completed 10/24/2019 Implants Implanted Type Area Gleason Operator Device Shelf Model / Identifier Expiration Date Ser ial / Lot Stent Bili Duodenal [id number] - [id number] IMPLANTS MIKAYLA STON SCI:ENDO 3432 / Implanted: Qty: 1 on 02/15/2019 by Uriah Childs at [facility] / Procedures The patient is currently admitted. The information in this section might not be complete until the patient is discharged. Procedure Name Priority Date/Time Associated Diagnosis Comme nts CBC W/PLT COUNT & Routine 03/17/2020 Results fo r AUTO DIFFERENTIAL 5:28 AM FUEL CELL REPAIRER this proce dure are in the results section. CBC W/PLT COUNT & Routine 03/17/2020 Results fo r AUTO DIFFERENTIAL 5:28 AM FUEL CELL REPAIRER this proce dure are in the results section. COMPREHENSIVE Routine 03/17/2020 Results for METABOLIC PANEL 5:27 AM FUEL CELL REPAIRER this procedu re are in the results section. CBC W/PLT COUNT & Routine 01/09/2020 Results fo r AUTO DIFFERENTIAL 4:12 AM FUEL CELL REPAIRER this proce dure are in the results section. COMPREHENSIVE Routine 01/09/2020 Results for METABOLIC PANEL 4:12 AM FUEL CELL REPAIRER this procedu re are in the results section. MAGNESIUM Routine 01/09/2020 Results for 4:12 AM FUEL CELL REPAIRER this procedure are in the results section. CBC W/PLT COUNT & Routine 01/09/2020 Results fo r AUTO DIFFERENTIAL 4:12 AM FUEL CELL REPAIRER this proce dure are in the results section. IRON, TIBC, % SAT. Routine 01/09/2020 Results f or (WITHOUT FERRITIN) 4:12 AM FUEL CELL REPAIRER this proc edure are in the results section. BASIC METABOLIC PANEL Routine 01/08/2020 Result s for (7) 4:23 AM FUEL CELL REPAIRER this procedure are in the results section. CBC W/PLT COUNT & Routine 01/07/2020 Results fo r AUTO DIFFERENTIAL 11:09 AM FUEL CELL REPAIRER this proce dure are in the results section. BASIC METABOLIC PANEL Routine 01/07/2020 Result s for (7) 11:09 AM FUEL CELL REPAIRER this procedure are in the results section. CBC W/PLT COUNT & Routine 01/07/2020 Results fo r AUTO DIFFERENTIAL 11:09 AM FUEL CELL REPAIRER this proce dure are in the results section. URINALYSIS W/ REFLEX Routine 01/07/2020 Results for URINE CULTURE 8:55 AM FUEL CELL REPAIRER this procedure are in the results section. SARS-COV2/RT-PCR Routine 01/06/2020 Results for ([facility] & REF LABS) 10:53 AM FUEL CELL REPAIRER this proce dure are in the results section. (CELLAVISION MANUAL Routine 01/06/2020 Results for DIFF) 10:46 AM FUEL CELL REPAIRER this procedure are in the results section. CBC W/PLT COUNT & Routine 01/06/2020 Results fo r AUTO DIFFERENTIAL 10:46 AM FUEL CELL REPAIRER this proce dure are in the results section. CBC W/PLT COUNT & Routine 01/06/2020 Results fo r AUTO DIFFERENTIAL 10:46 AM FUEL CELL REPAIRER this proce dure are in the results section. HEPATIC FUNCTION Routine 01/06/2020 Results for PANEL 10:46 AM FUEL CELL REPAIRER this procedure are in the results section. BASIC METABOLIC PANEL Routine 01/06/2020 Result s for (7) 10:46 AM FUEL CELL REPAIRER this procedure are in the results section. URINALYSIS W/ REFLEX Routine 01/05/2020 Results for URINE CULTURE 7:19 AM FUEL CELL REPAIRER this procedure are in the results section. XR CHEST 1 VIEW Routine 01/05/2020 Results for PORTABLE/BEDSIDE 6:59 AM FUEL CELL REPAIRER this proced ure are in the results section. BLOOD CULTURE Routine 01/05/2020 Results for 5:11 AM FUEL CELL REPAIRER this procedure are in the results section. BLOOD CULTURE Routine 01/05/2020 Results for 5:06 AM FUEL CELL REPAIRER this procedure are in the results section. CBC W/PLT COUNT & Routine 01/05/2020 Results fo r AUTO DIFFERENTIAL 4:26 AM FUEL CELL REPAIRER this proce dure are in the results section. CBC W/PLT COUNT & Routine 01/05/2020 Results fo r AUTO DIFFERENTIAL 4:26 AM FUEL CELL REPAIRER this proce dure are in the results section. COMPREHENSIVE Routine 01/05/2020 Results for METABOLIC PANEL 4:26 AM FUEL CELL REPAIRER this procedu re are in the results section. MR ABDOMEN WO LAURA 01/04/2020 Results for CONTRAST MRCP 5:24 PM FUEL CELL REPAIRER this procedure are in the results section. CBC W/PLT COUNT & STAT 01/04/2020 Results fo r AUTO DIFFERENTIAL 8:16 AM FUEL CELL REPAIRER this proce dure are in the results section. LIPASE Routine 01/04/2020 Results for 8:16 AM FUEL CELL REPAIRER this procedure are in the results section. PROTHROMBIN TIME/INR STAT 01/04/2020 Results for 8:16 AM FUEL CELL REPAIRER this procedure are in the results section. COMPREHENSIVE STAT 01/04/2020 Results for METABOLIC PANEL 8:16 AM FUEL CELL REPAIRER this procedu re are in the results section. CBC W/PLT COUNT & STAT 01/04/2020 Results fo r AUTO DIFFERENTIAL 8:16 AM FUEL CELL REPAIRER this proce dure are in the results section. URINALYSIS W/ REFLEX Routine 12/18/2019 Results for URINE CULTURE 3:46 PM FUEL CELL REPAIRER this procedure are in the results section. HEMOGLOBIN AND STAT 12/18/2019 Results for HEMATOCRIT 1:34 PM FUEL CELL REPAIRER this procedure are in the results section. PROTHROMBIN TIME/INR Routine 12/18/2019 Results for 5:38 AM FUEL CELL REPAIRER this procedure are in the results section. PHOSPHORUS Routine 12/18/2019 Results for 5:38 AM FUEL CELL REPAIRER this procedure are in the results section. MAGNESIUM Routine 12/18/2019 Results for 5:38 AM FUEL CELL REPAIRER this procedure are in the results section. BASIC METABOLIC PANEL Routine 12/18/2019 Result s for (7) 5:38 AM FUEL CELL REPAIRER this procedure are in the results section. CBC (HEMOGRAM ONLY) Routine 12/18/2019 Results for 5:38 AM FUEL CELL REPAIRER this procedure are in the results section. CT ABDOMEN/PELVIS LAURA 12/18/2019 Results fo r WITH IV CONTRAST 2:06 AM FUEL CELL REPAIRER this proced ure are in the results section. HEMOGLOBIN AND Routine 12/17/2019 Results for HEMATOCRIT 2:39 PM FUEL CELL REPAIRER this procedure are in the results section. HEPATIC FUNCTION Routine 12/17/2019 Results for PANEL 3:31 AM FUEL CELL REPAIRER this procedure are in the results section. PROTHROMBIN TIME/INR Routine 12/17/2019 Results for 3:31 AM FUEL CELL REPAIRER this procedure are in the results section. PHOSPHORUS Routine 12/17/2019 Results for 3:31 AM FUEL CELL REPAIRER this procedure are in the results section. MAGNESIUM Routine 12/17/2019 Results for 3:31 AM FUEL CELL REPAIRER this procedure are in the results section. BASIC METABOLIC PANEL Routine 12/17/2019 Result s for (7) 3:31 AM FUEL CELL REPAIRER this procedure are in the results section. CBC (HEMOGRAM ONLY) Routine 12/17/2019 Results for 3:31 AM FUEL CELL REPAIRER this procedure are in the results section. HEMOGLOBIN AND Routine 12/17/2019 Results for HEMATOCRIT 3:31 AM FUEL CELL REPAIRER this procedure are in the results section. HEMOGLOBIN AND Routine 12/16/2019 Results for HEMATOCRIT 3:09 PM FUEL CELL REPAIRER this procedure are in the results section. POCT-GLUCOSE METER Routine 12/16/2019 Results f or 12:51 PM FUEL CELL REPAIRER this procedure are in the results section. LACTIC ACID, VENOUS LAURA 12/16/2019 Results for 9:33 AM FUEL CELL REPAIRER this procedure are in the results section. HEMOGLOBIN AND Routine 12/16/2019 Results for HEMATOCRIT 9:33 AM FUEL CELL REPAIRER this procedure are in the results section. LIPASE Add-On 12/16/2019 Results for 4:24 AM FUEL CELL REPAIRER this procedure are in the results section. HEPATIC FUNCTION Add-On 12/16/2019 Results for PANEL 4:24 AM FUEL CELL REPAIRER this procedure are in the results section. PROTHROMBIN TIME/INR Routine 12/16/2019 Results for 4:24 AM FUEL CELL REPAIRER this procedure are in the results section. PHOSPHORUS Routine 12/16/2019 Results for 4:24 AM FUEL CELL REPAIRER this procedure are in the results section. MAGNESIUM Routine 12/16/2019 Results for 4:24 AM FUEL CELL REPAIRER this procedure are in the results section. BASIC METABOLIC PANEL Routine 12/16/2019 Result s for (7) 4:24 AM FUEL CELL REPAIRER this procedure are in the results section. CBC (HEMOGRAM ONLY) Routine 12/16/2019 Results for 4:24 AM FUEL CELL REPAIRER this procedure are in the results section. HEMOGLOBIN AND Routine 12/15/2019 Results for HEMATOCRIT 9:22 PM FUEL CELL REPAIRER this procedure are in the results section. HEMOGLOBIN AND Routine 12/15/2019 Results for HEMATOCRIT 5:02 PM FUEL CELL REPAIRER this procedure are in the results section. OXYGEN SATURATION, STAT 12/15/2019 Results f or MEASURED 1:48 PM FUEL CELL REPAIRER this procedure are in the results section. OXYGEN SATURATION, Routine 12/15/2019 Results f or MEASURED 1:14 PM FUEL CELL REPAIRER this procedure are in the results section. HEMOGLOBIN AND Routine 12/15/2019 Results for HEMATOCRIT 10:32 AM FUEL CELL REPAIRER this procedure are in the results section. HEPATIC FUNCTION Routine 12/15/2019 Results for PANEL 3:47 AM FUEL CELL REPAIRER this procedure are in the results section. PROTHROMBIN TIME/INR Routine 12/15/2019 Results for 3:47 AM FUEL CELL REPAIRER this procedure are in the results section. PHOSPHORUS Routine 12/15/2019 Results for 3:47 AM FUEL CELL REPAIRER this procedure are in the results section. MAGNESIUM Routine 12/15/2019 Results for 3:47 AM FUEL CELL REPAIRER this procedure are in the results section. BASIC METABOLIC PANEL Routine 12/15/2019 Result s for (7) 3:47 AM FUEL CELL REPAIRER this procedure are in the results section. CBC (HEMOGRAM ONLY) Routine 12/15/2019 Results for 3:47 AM FUEL CELL REPAIRER this procedure are in the results section. PREPARE LEUKO-REDUCED STAT 12/14/2019 Result s for RBC 11:54 PM FUEL CELL REPAIRER this procedure are in the results section. HEMOGLOBIN AND Routine 12/14/2019 Results for HEMATOCRIT 9:49 PM FUEL CELL REPAIRER this procedure are in the results section. LACTIC ACID, VENOUS LAURA 12/14/2019 Results for 12:44 PM FUEL CELL REPAIRER this procedure are in the results section. HEMOGLOBIN AND Routine 12/14/2019 Results for HEMATOCRIT 11:29 AM FUEL CELL REPAIRER this procedure are in the results section. REPORT OF PROCEDURE - 12/14/2019 ENDOSCOPY URL 8:27 AM FUEL CELL REPAIRER PROTHROMBIN TIME/INR Routine 12/14/2019 Results for 4:34 AM FUEL CELL REPAIRER this procedure are in the results section. APTT Routine 12/14/2019 Results for 4:34 AM FUEL CELL REPAIRER this procedure are in the results section. PHOSPHORUS Routine 12/14/2019 Results for 4:34 AM FUEL CELL REPAIRER this procedure are in the results section. MAGNESIUM Routine 12/14/2019 Results for 4:34 AM FUEL CELL REPAIRER this procedure are in the results section. BASIC METABOLIC PANEL Routine 12/14/2019 Result s for (7) 4:34 AM FUEL CELL REPAIRER this procedure are in the results section. CBC (HEMOGRAM ONLY) Routine 12/14/2019 Results for 4:34 AM FUEL CELL REPAIRER this procedure are in the results section. TRANSFUSE Routine 12/14/2019 LEUKO-REDUCED RED 1:09 AM FUEL CELL REPAIRER BLOOD CELLS BLOOD GAS, ARTERIAL STAT 12/14/2019 Results for 1:00 AM FUEL CELL REPAIRER this procedure are in the results section. HEMOGLOBIN AND Routine 12/14/2019 Results for HEMATOCRIT 1:00 AM FUEL CELL REPAIRER this procedure are in the results section. IR EMBOLIZATION Routine 12/13/2019 Results for ARTERIAL 11:25 PM FUEL CELL REPAIRER this procedure are in the results section. TRANSFUSE Routine 12/13/2019 LEUKO-REDUCED RED 10:06 PM FUEL CELL REPAIRER BLOOD CELLS SARS-COV2/RT-PCR Routine 12/13/2019 Results for ([facility] & REF LAB[facility]) 5:36 PM FUEL CELL REPAIRER this proce dure are in the results section. FIBRINOGEN Add-On 12/13/2019 Results for 5:31 PM FUEL CELL REPAIRER this procedure are in the results section. PT/APTT Routine 12/13/2019 Results for 5:31 PM FUEL CELL REPAIRER this procedure are in the results section. PROTHROMBIN TIME/INR STAT 12/13/2019 Results for 5:31 PM FUEL CELL REPAIRER this procedure are in the results section. UPPER ENDOSCOPY 12/13/2019 Gastrointestinal 4:56 PM FUEL CELL REPAIRER hemorrhage, unspecified gastrointestinal hemorrhage type TYPE AND SCREEN, Routine 12/13/2019 Results for AUTOMATED 4:27 PM FUEL CELL REPAIRER this procedure are in the results section. MAGNESIUM Routine 12/13/2019 Results for 4:27 PM FUEL CELL REPAIRER this procedure are in the results section. COMPREHENSIVE Routine 12/13/2019 Results for METABOLIC PANEL 4:27 PM FUEL CELL REPAIRER this procedu re are in the results section. CBC (HEMOGRAM ONLY) Routine 12/13/2019 Results for 4:27 PM FUEL CELL REPAIRER this procedure are in the results section. REPORT OF PROCEDURE - 12/13/2019 Result s for ENDOSCOPY SCAN this procedur e are in the results section. REPORT OF PROCEDURE - 12/08/2019 ENDOSCOPY URL 8:16 AM FUEL CELL REPAIRER POCT-GLUCOSE METER Routine 12/07/2019 Results f or 12:44 PM FUEL CELL REPAIRER this procedure are in the results section. POCT-GLUCOSE METER Routine 12/07/2019 Results f or 6:04 AM FUEL CELL REPAIRER this procedure are in the results section. CBC W/PLT COUNT & Routine 12/07/2019 Results fo r AUTO DIFFERENTIAL 5:47 AM FUEL CELL REPAIRER this proce dure are in the results section. PHOSPHORUS Routine 12/07/2019 Results for 5:47 AM FUEL CELL REPAIRER this procedure are in the results section. MAGNESIUM Routine 12/07/2019 Results for 5:47 AM FUEL CELL REPAIRER this procedure are in the results section. PROTHROMBIN TIME/INR Routine 12/07/2019 Results for 5:47 AM FUEL CELL REPAIRER this procedure are in the results section. BASIC METABOLIC PANEL Routine 12/07/2019 Result s for (7) 5:47 AM FUEL CELL REPAIRER this procedure are in the results section. CBC W/PLT COUNT & Routine 12/07/2019 Results fo r AUTO DIFFERENTIAL 5:47 AM FUEL CELL REPAIRER this proce dure are in the results [...] results section. SARS-COV2/RT-PCR Routine 10/21/2019 Results for ([facility] & REF LABS) 7:15 AM CDT this [...] SCOPE) POCT-GLUCOSE METER Routine 10/15/2019 12:47 PM CDT Results for this procedure are i n the results section . POCT-GLUCOSE METER Routine 10/15/2019 12:14 PM CDT Results for this procedure are i n the results section . POCT-GLUCOSE METER Routine 10/15/2019 8:52 AM CDT Results for this procedure are i n the results section . POCT-GLUCOSE METER Routine 10/15/2019 8:31 AM CDT Results for this procedure are i n the results section . URINALYSIS W/ MICROSCOPIC Routine 10/15/2019 8:13 AM CDT Results for this procedure are i n the results section . PT/APTT Routine 10/15/2019 5:32 AM CDT Resu lts for this procedure are i n the results section . CBC (HEMOGRAM ONLY) Routine 10/15/2019 5:32 AM CDT Results for this procedure are i n the results section . COMPREHENSIVE METABOLIC Routine 10/15/2019 5:32 AM CDT Results for this PANEL procedure are i n the results section . IGG SUBCLASS-4 ONLY Routine 10/15/2019 5:32 AM CDT Results for this procedure are i n the results section . BASIC METABOLIC PANEL (7) Routine 10/14/2019 11:59 AM CDT Results for this procedure are i n the results section . HEPATIC FUNCTION PANEL Routine 10/14/2019 11:59 AM CDT Results for this procedure are i n the results section . XR ABDOMEN / KUB 1 VIEW LAURA 10/14/2019 9:16 AM CDT Results for this procedure are i n the results section . SARS-COV2/RT-PCR ([facility] & REF Routine 10/14/2019 4:48 AM CDT Results for this LABS) procedure are i n the results section . CBC W/PLT COUNT & AUTO Routine 10/14/2019 4:34 AM CDT Results for this DIFFERENTIAL procedure are i n the results section . TRIGLYCERIDES Add-On 10/14/2019 4:34 AM CDT Res ults for this procedure are i n the results section . LIPASE Add-On 10/14/2019 4:34 AM CDT Resu lts for this procedure are i n the results section . IRON, TIBC, % SAT. (WITHOUT Routine 10/14/2019 4:34 AM CDT Results for this FERRITIN) procedure are i n the results section . PT/APTT Routine 10/14/2019 4:34 AM CDT Resu lts for this procedure are i n the results section . CBC W/PLT COUNT & AUTO Routine 10/14/2019 4:34 AM CDT Results for this DIFFERENTIAL procedure are i n the results section . MAGNESIUM Routine 10/14/2019 4:34 AM CDT Resu lts for this procedure are i n the results section . HEPATIC FUNCTION PANEL Routine 10/14/2019 4:34 AM CDT Results for this procedure are i n the results section . BASIC METABOLIC PANEL (7) Routine 10/14/2019 4:34 AM CDT Results for this procedure are i n the results section . SARS-COV2/RT-PCR ([facility] & REF Routine 08/26/2019 7:33 PM CDT Results for this LABS) procedure are i n the results section . after 03/16/2019 Results CBC with platelet count + automated diff (03/17/2020 5:28 AM FUEL CELL REPAIRER)Only the most recent of15 resultswithin the time period is included. Pathologist Sig nature WBC 8.6 3.5 - 10.5 [facility] K/L [facility] RBC 3.31 (L) 4.63 - 6.08 [facility] M/L [facility] [place] Hemoglobin 9.5 (L) 13.7 - 17.5 [facility] GM/DL [facility] [place] Hematocrit 29.1 (L) 40.1 - 51.0 % [facility] MCV 87.9 79.0 - 92.2 fL [facility] MCH 28.7 25.7 - 32.2 pg [facility] MCHC 32.6 32.3 - 36.5 [facility] GM/DL [facility] RDW 19.7 (H) 11.6 - 14.4 % [facility] Platelets 672 (H) 150 - 450 K/CU [facility] MM [facility] MPV 10.1 9.4 - 12.4 fL [facility] nRBC 0 0 - 0 /100 WBC [facility] % Neutros 60 % [facility] % Lymphs 21 % [facility] % Monos 12 % [facility] % Eos 6 % [facility] % Baso 0 % [facility] # Neutros 5.20 1.78 - 5.38 [facility] K/L [facility] # Lymphs 1.85 1.32 - 3.57 [facility] K/L [facility] # Monos 1.05 (H) 0.30 - 0.82 [facility] # Eos 0.48 0.04 - 0.54 [facility]/L [facility] # Baso 0.03 0.01 - 0.08 [facility] K/[facility] Immature 0 0 - 1 % [facility] Granulocytes-Relative [facility] Specimen Blood Performing Organization Address City/State/Zipcode Phone Number [facility] [address] [place] [address] CENTER Comprehensive metabolic panel (03/17/2020 5:27 AM FUEL CELL REPAIRER)Only the most recent of6 resultswithin the time period is included. Protein, Total 4.6 (L) 6.0 - 8.3 [facility] gm/dL [facility] Albumin 1.9 (L) 3.5 - 5.0 [facility] g/dL [facility] Alkaline 239 (H) 40 - 150 U/L [facility] Phosphatase [facility] Total Bilirubin 0.3 0.2 - 1.2 [facility] mg/dL [facility] Sodium 144 136 - 145 [facility] meq/L [facility] Potassium 3.8 3.5 - 5.1 [facility] meq/L [facility] Chloride 111 (H) 98 - 107 [facility] meq/L [facility] CO2 26 22 - 29 meq/L [facility] BUN 8 7 - 21 mg/dL [facility] Creatinine 0.51 (L) 0.57 - 1.25 [facility] mg/dL [facility] Glucose 62 (L) 70 - 105 [facility] mg/dL [facility] Calcium 7.4 (L) 8.4 - 10.2 [facility]/dL [facility] AST 27 5 - 34 U/L [facility] ALT 11 6 - 55 U/L [facility] EGFR 190Comment: mL/min/1.73 [facility] ESTIMATED GFR IS sq [facility] NOT ACCURATE MEDICAL CENTER CREATININE CLEARANCE IN PREDICTING GLOMERULAR FILTRATION RATE. ESTIMATED GFR IS NOT APPLICABLE FOR DIALYSIS PATIENTS. Specimen Blood Narrative Performed At Formula Clerk ID - ALFREDOASI [facility] Performing Organization Address City/State/Zipcode Phone Number [facility] [address] [place] [address] CENTER Iron, TIBC, % sat. (without ferritin) (01/09/2020 4:12 AM FUEL CELL REPAIRER)Only the most recent of2 resultswithin the time period is included. Pathologist Sig nature Iron 120.0 40.0 - 160.0 [facility] ug/dL [facility] TIBC 114 (L) 250 - 450 ug/dL [facility] Iron % Saturation 105 (H) 20 - 55 % [facility] Specimen Blood Narrative Performed At Formula Clerk ID - ADMIN [facility] Performing Organization Address City/State/Zipcode Phone Number [facility] [address] [place] [address] CENTER Magnesium (01/09/2020 4:12 AM FUEL CELL REPAIRER)Only the most recent of20 resultswithin the time period is included. Pathologist Sig nature Magnesium 1.5 (L) 1.6 - 2.6 mg/dL [facility] Specimen Blood Narrative Performed At Formula Clerk ID - BS [facility] Performing Organization Address [facility] Phone Number [facility] [address] [place] [address] CENTER Basic Metabolic Panel (01/08/2020 4:23 AM FUEL CELL REPAIRER)Only the most recent of26 results within the time period is included. Sodium 141 136 - 145 meq/L [facility] Potassium 3.6 3.5 - 5.1 meq/L [facility] Chloride 105 98 - 107 meq/L [facility] CO2 29 22 - 29 meq/L [facility] BUN 3 (L) 7 - 21 mg/dL [facility] Creatinine 0.48 (L) 0.57 - 1.25 [facility] mg/dL [facility] Glucose 68 (L) 70 - 105 mg/dL [facility] Calcium 7.5 (L) 8.4 - 10.2 [facility] mg/dL [facility] EGFR 205Comment: mL/min/1.73 sq [facility] ESTIMATED GFR IS NOT [facility] ACCURATE CROUSE CREATININE CLEARANCE IN PREDICTING GLOMERULAR FILTRATION RATE. ESTIMATED GFR IS NOT APPLICABLE FOR DIALYSIS PATIENTS. Specimen Blood Narrative Performed At Formula Clerk ID - SOTERO M [facility] Performing Organization Address City/[facility]/Zipcode Phone Number [facility] [address] [place] [address] CROUSE Urinalysis w/Microscopic + Reflex to Culture (01/07/2020 8:55 AM FUEL CELL REPAIRER)Only the most recent of3 resultswithin the time period is included. Color, UA Light Yellow [facility] Clarity, UA Clear [facility] Specific [place], 1.009 1.001 - 1.035 [facility] pH, UA 7.5 5.0 - 8.0 [facility] Protein, UA Negative Negative [facility] Glucose, UA Negative Negative [facility] Ketones, UA Trace (A) Negative [facility] Bilirubin, UA Negative Negative [facility] Blood, UA Negative Negative [facility] Nitrite, UA Negative Negative [facility] Leukocytes, UA Negative Negative [facility] Urobilinogen, UA 0.2 0.2 - 1.0 mg/dL [facility] RBC, UA <1 /HPF [facility] WBC, UA <1 /HPF [facility] Specimen Source [facility] Specimen Urine - Urine specimen collection, clean catch (procedure) Narrative Performed At Formula Clerk ID - [auto] [facility] Formula Clerk ID - tech Performing Organization Address City/State/Zipcode Phone Number [facility] [address] [place] [address] CROUSE SARS-CoV2/RT-PCR (Asymptomatic ONLY) (01/06/2020 10:53 AM FUEL CELL REPAIRER)Only the most recent of6 resultswithin the time period is included. SARS-COV2/RT-PCR Negative Not Detected, [facility] Negative, [facility] external report CENTER for linked test SARS-COV-2 [facility] PERFORMING LAB [facility] Specimen Other - Nasopharyngeal wall structure (b devan structure) Narrative Performed At Negative result for this test determines that [facility] SARS-CoV-2 RNA was not [...] SARS-CoV-2 assay. Fact Sheet for Healthcare Providers: https://www.molecular.najera/vivien/TO_HXMG-CqY-5 _HCP_Fact_Sheet_51-190183.pdf Fact Sheet for Healthcare Patients: https://www.molecular.najera/vivien/NS_RPOZ-DsP-2 _Patient_Fact_Sheet_EN_51-561085M4.pdf Performing Laboratory: [facility] [address] [place] [address] Performing Organization Address City/State/Zipcode Phone Number [facility] [address] [place] [address] CENTER Manual Differential (01/06/2020 10:46 AM FUEL CELL REPAIRER) % Neutros 92 % [facility] % Lymphs 2 % [facility] % Monos 1 % [facility] % Eos 1 % [facility] % Bands 4 0 - 10 % [facility] # Neutros 14.17 (H) 1.78 - 5.38 [facility] # Lymphs 0.31 (L) 1.32 - 3.57 [facility] # Monos 0.15 (L) 0.30 - 0.82 [facility] # Eos 0.15 0.04 - 0.54 [facility] # Bands 0.62 0.00 - 0.80 [facility] Total Counted 100 [facility] Platelet Morphology Normal [facility] Smudge Cells Present [facility] Polychromasia 1+ few [facility] Hypochromia 1+ few [facility] Anisocytosis 2+ moderate [facility] Macrocytes 2+ moderate [facility] Poikilocytes 1+ few [facility] Target Cells 1+ few [facility] Ovalocytes 1+ few [facility] Tear Drop Cells 1+ few [facility] Platelet Conc Decreased [facility] Specimen Blood - Entire right upper arm (body str ucture) Narrative Performed At Formula Clerk HELIO - janae ramos [facility] User comments: Slide comments: Performing Organization Address City/State/Zipcode Phone Number [facility] [address] [place] [address] CROUSE Hepatic function panel (01/06/2020 10:46 AM FUEL CELL REPAIRER)Only the most recent of7 results within the time period is included. Pathologist Sig nature Protein, Total 4.8 (L) 6.0 - 8.3 gm/dL [facility] Albumin 1.8 (L) 3.5 - 5.0 g/dL [facility] Total Bilirubin 0.3 0.2 - 1.2 mg/dL [facility] Bilirubin, Direct 0.2 0.1 - 0.5 mg/dL [facility] Alkaline Phosphatase 130 40 - 150 U/L [facility] AST 7 5 - 34 U/L [facility] ALT <6 (L) 6 - 55 U/L [facility] Specimen Blood - Entire right upper arm (body str ucture) Narrative Performed At Formula Clerk ID - ROSIANG [facility] Performing Organization Address City/[facility]/Zipcode Phone Number [facility] [address] [place] [address] CROUSE XR chest 1 view portable / bedside (01/05/2020 6:59 AM FUEL CELL REPAIRER)Only the most recent of4 resultswithin the time period is included. Specimen Narrative Performed At FINAL REPORT GE RIS RAD, CHEST, 1 VIEW, NON DEPT INDICATION: fever, trying to rule out pn eumonia. has history necrotizing pancreatiits COMPARISON: December 05, 2019 FINDINGS: Portable frontal view of the c hest. IMPRESSION: Support Lines: None Lungs and pleura: Diffuse bilateral inte rstitial thickening is unchanged No pneumothorax. Heart and mediastinum: Stable contours. Additional findings: None. Signed: Vera Hull MD Report Verified Date/Time: 01/05/2020 07:25:44 Reading Location: [facility] y Reading Room Procedure Note Interface, External Ris In - 01/05/2020 7:27 AM FUEL CELL REPAIRER FINAL REPORT RAD, CHEST, 1 VIEW, NON DEPT INDICATION: fever, trying to rule out pn eumonia. has history necrotizing pancreatiits COMPARISON: December 05, 2019 FINDINGS: Portable frontal view of the c hest. IMPRESSION: Support Lines: None Lungs and pleura: Diffuse bilateral inte rstitial thickening is unchanged No pneumothorax. Heart and mediastinum: Stable contours. Additional findings: None. Signed: Vera Hull MD Report Verified Date/Time: 01/05/2020 0 7:25:44 Reading Location: [facility] Reading Room Performing Organization Address City/[facility] Phone Number [employer]ing[employer] Blood Culture - Routine (Left Venipuncture) (01/05/2020 5:11 AM FUEL CELL REPAIRER)Only the most recent of2 resultswithin the time period is included. Pathologist Sig nature Result No growth in 5 days [facility] Specimen Blood - Entire left upper arm (body stru cture) Performing Organization Address City/[facility] Phone Number [place] [phone] [place] [address] CENTER MR abdomen without IV contrast MRCP (01/04/2020 5:24 PM FUEL CELL REPAIRER) Specimen Narrative Performed At FINAL REPORT [employer] MRCP, MRI of abdomen without contrast Clinical History: Biliary obstruction juárez spected Technique: Multiplanar and multisequence MR images of the biliary system are obtained, with dedicated MRCP protocol and images. No intravenous contrast is administered. In addition, 3 dimensional reformatted images of the biliary system are obtained to evaluate the biliary anatomy. Comparison: December 18, 2019 Discussion: This examination is not dedicated to nixon luating masses or parenchymal abnormalities of the abdominal organs. A dditionally, there is susceptibility artifact arising from gwen gical material in gastric region, limiting evaluation of adjacent soft tissue structures. There are trace bilateral pleural effusi ons. No discrete liver lesion is identified o n this noncontrast exam. There is a mild degree of biliary ductal dilatation. The extrahepatic bile duct measures up to 8 mm, and the C BD demonstrates smooth distal tapering. No filling defect is seen. Sta tus post cholecystectomy. Patient is status post splenectomy. The pancreas appears atrophied. There is trace peripancreatic edema/flui d. No discrete drainable fluid collection is seen. No significant pancreatic ductal dilatation. The adrenal glands and kidneys appear un remarkable. No evidence of bowel obstruction. Trace ascites. No lym phadenopathy. Marrow signal is normal. Impression: Mild degree of biliary ductal dilatation , with smooth tapering of the distal CBD. Status post cholecystectomy and splenect severo. Pancreatic atrophy, with trace peripancr eatic edema/fluid. Trace bilateral pleural effusions, trace ascites. Signed: Ramona Miller MD Report Verified Date/Time: 01/05/2020 08:42:45 Reading Location: [facility] [id number] [facility] Reading Room Procedure Note Interface, External Ris In - 01/05/2020 8:44 AM FUEL CELL REPAIRER FINAL REPORT MRCP, MRI of abdomen without contrast Clinical History: Biliary obstruction juárez spected Technique: Multiplanar and multisequence MR images of the biliary system are obtained, with dedicated MRCP protocol and images. No intravenous contrast is administered. In addition, 3 dimensional reformatted images of the biliary system are obtained to evaluate the biliary anatomy. Comparison: December 18, 2019 Discussion: This examination is not dedicated to nixon luating masses or parenchymal abnormalities of the abdominal organs. A dditionally, there is susceptibility artifact arising from gwen gical material in gastric region, limiting evaluation of adjacent soft tissue structures. There are trace bilateral pleural effusi ons. No discrete liver lesion is identified o n this noncontrast exam. There is a mild degree of biliary ductal dilatation. The extrahepatic bile duct measures up to 8 mm, and the C BD demonstrates smooth distal tapering. No filling defect is seen. Sta tus post cholecystectomy. Patient is status post splenectomy. The pancreas appears atrophied. There is trace peripancreatic edema/flui d. No discrete drainable fluid collection is seen. No significant pancreatic ductal dilatation. The adrenal glands and kidneys appear un remarkable. No evidence of bowel obstruction. Trace ascites. No lym phadenopathy. Marrow signal is normal. Impression: Mild degree of biliary ductal dilatation , with smooth tapering of the distal CBD. Status post cholecystectomy and splenect severo. Pancreatic atrophy, with trace peripancr eatic edema/fluid. Trace bilateral pleural effusions, trace ascites. Signed: Ramona Miller MD Report Verified Date/Time: 01/05/2020 0 8:42:45 Reading Location: [facility] C0X [facility] Reading Room Performing Organization Address City/State/[facility] Phone Number RIS Prothrombin time/INR (01/04/2020 8:16 AM FUEL CELL REPAIRER)Only the most recent of15 results within the time period is included. Pathologist Sig nature Protime 15.6 (H) 11.9 - 14.2 seconds [facility] INR 1.29 <=5.90 [facility] Specimen Blood Narrative Performed At Effective 07/03/2018: PT Reference Range [facility] Change New: 11.9-14.2 Previous: 11.7-14.7 RECOMMENDED COUMADIN/WARFARIN INR THERAPY RANGES STANDARD DOSE: 2.0-3.0 Includes: PROPHYLAXIS for venous thrombosis, systemic embolization; TREATMENT for venous thrombosis and/or pulmonary embolus. HIGH RISK: Target INR is 2.5-3.5 for patients wiht mechanical heart valves. Performing Organization Address [facility] Hospitalcoms Phone Number [address] [address] CENTER Lipase (01/04/2020 8:16 AM FUEL CELL REPAIRER)Only the most recent of5 resultswithin the time period is included. Pathologist Sig nature Lipase 145 (H) 8 - 78 U/L [facility] Specimen Blood Narrative Performed At Formula Clerk HELIO Hernandez [facility] Performing Organization Address City/[facility]/Zipcode Phone Number [address] [address] CENTER Hemoglobin and hematocrit (12/18/2019 1:34 PM FUEL CELL REPAIRER)Only the most recent of20 resultswithin the time period is included. Pathologist Sig nature Hemoglobin 9.9 (L) 13.7 - 17.5 GM/DL [facility] Hematocrit 30.5 (L) 40.1 - 51.0 % [facility] Specimen Blood Narrative Performed At Formula Clerk ID - [id number] [facility] Performing Organization Address City/[facility] Phone Number [facility] [address] [place] [address] CENTER CBC (Hemogram only) (12/18/2019 5:38 AM FUEL CELL REPAIRER)Only the most recent of18 results within the time period is included. Pathologist Sig nature WBC 8.3 3.5 - 10.5 K/L [facility] RBC 2.73 (L) 4.63 - 6.08 M/L [facility] Hemoglobin 8.3 (L) 13.7 - 17.5 GM/DL [facility] Hematocrit 25.5 (L) 40.1 - 51.0 % [facility] MCV 93.4 (H) 79.0 - 92.2 fL [facility] MCH 30.4 25.7 - 32.2 pg [facility] MCHC 32.5 32.3 - 36.5 GM/DL [facility] RDW 15.6 (H) 11.6 - 14.4 % [facility] Platelets 626 (H) 150 - 450 K/CU MM [facility] MPV 9.6 9.4 - 12.4 fL [facility] nRBC 0 0 - 0 /100 WBC [facility] Specimen Blood Performing Organization Address City/[facility]/Zipcode Phone Number [facility] [address] [place] [address] CENTER Phosphorus (12/18/2019 5:38 AM FUEL CELL REPAIRER)Only the most recent of17 resultswithin the time period is included. Pathologist Sig nature Phosphorus 3.8 2.3 - 4.7 mg/dL [facility] CENTER Specimen Blood Narrative Performed At Formula Clerk ID - SOTERO Hernandez [facility] Performing Organization Address City/State/Zipcode Phone Number [facility] [address] [place], [place] [phone] CENTER CT abdomen/pelvis with IV contrast (12/18/2019 2:06 AM FUEL CELL REPAIRER)Only the most recent of2 resultswithin the time period is included. Specimen Narrative Performed At FINAL REPORT [employer]ing[employer] EXAM: CT of the abdomen and pelvis, [...] External Ris In - 12/18/2019 2:31 AM FUEL CELL REPAIRER FINAL REPORT EXAM: CT of the abdomen [...] Small bilateral pleural effusions, decre ased. Signed: Mgehan Mota MD Report Verified Date/Time: 12/18/2019 0 2:28:03 Performing Organization Address City/[facility] Phone Number [facility] POC-Glucose meter (12/16/2019 12:51 PM FUEL CELL REPAIRER)Only the most recent of55 results within the time period is included. POC-Glucose Meter 86 70 - 110 [facility] Comment: mg/dL [facility] : TESTED AT [address] CENTER : Formula Clerk/Photographer Aerial ID = [id number] for BATSHEVA FREDERICK Specimen Blood Performing Organization Address [facility] [place] [address] CENTER Lactic acid, venous (12/16/2019 9:33 AM FUEL CELL REPAIRER)Only the most recent of2 results within the time period is included. Pathologist Sig nature Lactate, Venous 0.55 0.50 - 2.20 mmol/L [facility] Specimen Blood Narrative Performed At Formula Clerk ID - CAROLINA F [facility] Performing Organization Address [facility] [place] [address] CENTER Oxygen saturation, measured (12/15/2019 1:48 PM FUEL CELL REPAIRER)Only the most recent of2 resultswithin the time period is included. Pathologist Sig nature O2 Saturation (Measured) 87.3 % [facility] Specimen Blood Performing Organization Address [facility] Phone Number [address] [phone] CENTER Prepare Leuko-Red RBC (12/14/2019 11:54 PM FUEL CELL REPAIRER)Only the most recent of2 results within the time period is included. Pathologist Sig nature CROSSMATCH COMPATIBLE SAFETRACE TX Unit ABO A Pos SAFETRACE TX UNIT NUMBER [id number] SAFETRACE TX Status TX_TIMEINCHART SAFETRACE TX Blood Bank Product RED BLOOD CELLS SAFETRACE TX PRODUCT CODE [id number] SAFETRACE TX CROSSMATCH COMPATIBLE SAFETRACE TX Unit ABO A Pos SAFETRACE TX UNIT NUMBER [id number] SAFETRACE TX Status TX_TIMEINCHART SAFETRACE TX Blood Bank Product RED BLOOD CELLS SAFETRACE TX PRODUCT CODE [id number] SAFETRACE TX Specimen Other Performing Organization Address [facility] Phone Number SAFETRACE TX REPORT OF PROCEDURE - ENDOSCOPY URL (12/14/2019 8:27 AM FUEL CELL REPAIRER) Narrative Performed At This result has an attachment that is no t available. aPTT (12/14/2019 4:34 AM FUEL CELL REPAIRER)Only the most recent of2 resultswithin the time period is included. Pathologist Sig nature PTT 26.0 22.5 - 36.0 seconds [facility] Specimen Blood Performing Organization Address [facility] Phone Number [address] [phone] CENTER Transfuse Leuko-Red RBC (12/14/2019 1:09 AM FUEL CELL REPAIRER)Only the most recent of8 resultswithin the time period is included.Blood gas, arterial (12/14/2019 1:00 AM FUEL CELL REPAIRER)Only the most recent of9 resultswithin the time period is included. Pathologist Sig nature pH, Arterial 7.56 (H) 7.35 - 7.45 [facility] pCO2, Arterial 27 (L) 35 - 45 mm Hg [facility] pO2, Arterial 212 (H) 80 - 90 mm Hg [facility] O2 Sat, Arterial 99.6 (H) 96.0 - 97.0 % [facility] HCO3, Arterial 23 21 - 29 mmol/L [facility] Base Excess, Arterial 1.9 -2.0 - 3.0 [facility] mmol/L [facility] Patient Temperature 37.5 [facility] FIO2 50.0 [facility] Specimen Blood, Arterial Performing Organization Address City/State/Zipcode Phone Number [facility] [address] [place] [address] CENTER IR Embolization Arterial (12/13/2019 11:25 PM FUEL CELL REPAIRER) Specimen Narrative Performed At FINAL REPORT InvestingNote Procedure: Transarterial embolization of gastroduodenal artery. History: Ulcer in the first part of duod enum with large artery with pulsatile bleeding associated with hemor rhagic shock and inability to control the bleeding on endoscopy. Empir ic GDA embolization was requested. Hand Edger: Rayshawn Motley M.D. Tyre Retreader: Jef Rosen Modality: Sonography and fluoroscopy. DOSE [...] saline drip. Over the wire, a 5 Maltese reverse curve catheter was placed. This was [...] Report Verified Date/Time: 12/15/2019 10:36:44 Reading Location: [facility] P048 Angio Body Reading Room Procedure Note Interface, External Ris In - 12/15/2019 10:38 AM FUEL CELL REPAIRER FINAL REPORT Procedure: Transarterial embolization of gastroduodenal artery. History: Ulcer in the first part of duod enum with large artery with pulsatile bleeding associated with hemor rhagic shock and inability to control the bleeding on endoscopy. Empir ic GDA embolization was requested. Hand Edger: Rayshawn Motley M.D. Tyre Retreader: Jef Rosen Modality: Sonography and fluoroscopy. DOSE [...] saline drip. Over the wire, a 5 Maltese reverse curve catheter was placed. This was [...] Verified Date/Time: 12/15/2019 1 0:36:44 Reading Location: [facility] P048 Angio Body Reading Room Performing Organization Address City[facility] Phone Number GE RIS PT/aPTT (12/13/2019 5:31 PM FUEL CELL REPAIRER)Only the most recent of11 resultswithin the time period is included. Pathologist Sig nature Protime 16.8 (H) 11.9 - 14.2 seconds [facility] INR 1.40 <=5.90 [facility] PTT 35.9 22.5 - 36.0 seconds [facility] Specimen Blood Narrative Performed At Effective 07/03/2018: PT Reference Range [facility] Change New: 11.9-14.2 Previous: 11.7-14.7 RECOMMENDED COUMADIN/WARFARIN INR THERAPY RANGES STANDARD DOSE: 2.0-3.0 Includes: PROPHYLAXIS for venous thrombosis, systemic embolization; TREATMENT for venous thrombosis and/or pulmonary embolus. HIGH RISK: Target INR is 2.5-3.5 for patients wiht mechanical heart valves. Performing Organization Address [facility] Hospital[facility] Phone Number [address] [address] CENTER Fibrinogen (12/13/2019 5:31 PM FUEL CELL REPAIRER) Pathologist Sig nature Fibrinogen 484 (H) 225 - 434 mg/dl [facility] Specimen Blood Performing Organization Address [facility] Hospital[facility] Phone Number [address] [address] CENTER Type and screen, automated (12/13/2019 4:27 PM FUEL CELL REPAIRER)Only the most recent of3 resultswithin the time period is included. Pathologist Sig nature ABO/RH AUTOMATED A POSITIVE [facility] Ab Scrn NEGATIVE [facility] Specimen Blood Performing Organization Address [facility]/Zipcode Phone Number [address] [address] EKG-SCANNED (12/13/2019) Narrative Performed At This result has an attachment that is no t available. Ordered by an unspecified provider. REPORT OF PROCEDURE - ENDOSCOPY URL (12/08/2019 8:16 AM FUEL CELL REPAIRER) Narrative Performed At This result has an attachment that is no t available. H. pylori antigen, stool (12/05/2019 7:28 PM [...] Feces (substance) Narrative Performed At Performing Lab [facility] *SPL [employer] [facility], [id number] [place] [id number] Anjelica Gupta MD, PhD Performing Organization Address City/State/Zipcode Phone Number [place] [address] INCOR[facility]ATED [address] [facility] thoracentesis (12/05/2019 6:00 PM CDT) Specimen Narrative Performed At FINAL REPORT Invest[employer] Exam: Ultrasound guided thoracentesis Clinical History: Right-sided Pleural Ef fusion Hand Edger: Michelle Eric PA-C Supervising Physician: Austin Tee [...] Report Verified Date/Time: 12/06/2019 13:05:38 Reading Location: [place] [id number] Ultrasoun d Reading Room Electronically signed by: AUSTIN TEE MD o n 12/06/2019 01:05 PM Procedure Note Interface, External Ris In - 12/06/2019 1:08 PM CDT FINAL REPORT Exam: Ultrasound guided thoracentesis Clinical History: Right-sided Pleural Ef fusion Hand Edger: Michelle Eric PA-C Supervising Physician: Austin Tee [...] Impression: Ultrasound guided right-jennifer ed thoracentesis. Signed: Austin Tee MD Report Verified Date/Time: 12/06/2019 1 3:05:38 Reading Location: [facility] [id number] Ultrasoun d Reading Room Performing Organization Address City/[facility] Phone Number [facility] Protein, Total, Pleural Fluid (12/05/2019 5:55 PM CDT) PROTEIN, TOTAL, 1.1 [facility] PLEURAL FLUID Comment: INCORPORATED Reference range is not defin ed and interpretation must be performed in the consideration of the pathophysiology of the analyte and the clinical context. TEST PERFORMED AT [facility] Specimen Body Fluid - Structure of right pleural cavity (body structure) Narrative Performed At Reference range is not defined and interpretation must [facility] be performed in the consideration of the pathophysiology of the analyte and the clinical context. TEST PERFORMED AT [facility] AB Performing Organization Address City/[facility]/Zipcode Phone Number [facility] [place] [address] INCORPORATED [address] [facility] Glucose Pleural Fluid (12/05/2019 5:55 PM CDT) Glucose, Pleural 114 mg/dL [facility] Fluid Comment: INCORPORATED Reference range approximates that found in serum. Specimen Body Fluid - Structure of right pleural cavity (body structure) Narrative Performed At Performing Lab [facility] [place] [address] [place] [address] Elma Herman MD, PhD, VENKATA Performing Organization Address City/State/Zipcode Phone Number [facility] [address] INCORPORATED [address] [facility] Body fluid culture + gram stain (12/05/2019 5:54 PM CDT) Result No growth [facility] Gram Stain Result <1+ White blood [facility] cells seen [facility] Gram Stain Result No organisms seen [facility] Specimen Body Fluid - Structure of right pleural cavity (body structure) Narrative Performed At [facility] Performing Organization Address City/State/Zipcode Phone Number [facility] [address] [place] [address] CENTER Body fluid cell count with differential (12/05/2019 5:54 PM CDT) Appearance Slightly Cloudy Clear [facility] (A) [facility] Color Straw Colorless, [facility] Straw [facility] RBCs 170 (H) <=1 /cu mm [facility] Adjusted WBC Count 455 (H) <=5 /cu mm [facility] Lining Cells 5 (H) <=1 /cu mm [facility] % Segs 4 % [facility] % Lymphs 63 % [facility] % Monos 31 % [facility] % Eos 2 % [facility] % Baso 0 % [facility] Container Body EDTA Tube [facility] Specimen Body Fluid - Structure of right pleural cavity (body structure) Performing Organization Address City/State/Zipcode Phone Number [facility] [address] [place] [address] CENTER Lactate Dehydrogenase (LD), Pleural Fluid (12/05/2019 5:36 PM CDT) Lactate 36 See Note: [facility] Dehydrogenase (LD), Comment: U/L [facility] Pleural Fluid Reference Range: TRANSUDATE: <113 EXUDATE: >113 SAMPLE SLIGHTLY LIPEMIC. Specimen Body Fluid - Structure of right pleural cavity (body structure) Narrative Performed At Performing Lab [facility] E[facility] [employer] [facility] [address] [place] [address] Elma Herman MD, PhD, VENKATA Performing Organization Address City/[facility]/Zipcode Phone Number [facility] [address] INCORPORATED [address] [facility] Amylase Pleural Fluid (12/05/2019 5:36 PM CDT) Specimen Body Fluid - Structure of right pleural cavity (body structure) Narrative Performed At This result has an attachment that is no t available. US abdominal with doppler (12/02/2019 8:20 PM CDT) Specimen Narrative Performed At FINAL REPORT InvestingNote History: Upper GI bleed, concern for por [...] 1:27:24 Performing Organization Address City/State/Zipcode Phone Number jed KOENIG (12/02/2019 7:55 PM CDT) Pathologist Sig nature ABO Grouping A [facility] Rh Factor POS [facility] Specimen Blood Performing Organization Address [facility] HospitalcoBimbasket Phone Number [address] [address] RHYTHM STRIP - SCAN (10/28/2019 12:11 PM CDT) Narrative Performed At This result has an attachment that is no t available. Amylase Peritoneal Fluid (10/21/2019 10:19 AM CDT)Only the most recent of2 resultswithin the time period is included. Pathologist Sig nature AMYLASE, PERITONEAL 9 See Comment U/L [facility] TH FLUID [facility] Specimen Body Fluid - Peter - Mathur drain, becca ce (physical object) Narrative Performed At Amylase activity in peritoneal fluids of [facility] non-pancreatic origin is often less than or CENTER equal to the amylase activity in blood, whereas elevated amylase activity has been reported in fluid of pancreatic origin (five-folds or higher compared to contemporaneously collected blood specimen). This test has been modified from the lead pharmacy technician's instructions and its performance characteristics were determined by [facility]. The laboratory is regulated under CLIA as qualified to perform high-complexity testing. This test has not been cleared or approved by the U.S. Food and Drug Administration. The reference intervals and other method performance specifications are unavailable for amylase in peritoneal fluid. Comparison of this result with the blood amylase is recommended. Formula Clerk ID - [email or web address] Performing Organization Address City/[facility]/Jaco Solarsicode Phone Number [facility] [address] [place] [address] CENTER TRANSFUSION SERVICE REPORT - SCAN (10/19/2019 6:01 PM CDT)Only the most recent of2 resultswithin the time period is included. Narrative Performed At This result has an attachment that is no t available. Prepare RBC (10/18/2019 11:55 PM CDT)Only the most recent of4 resultswithin the time period is included. Pathologist Sig nature CROSSMATCH COMPATIBLE SAFETRACE TX Unit ABO A Pos SAFETRACE TX UNIT NUMBER [id number] SAFETRACE TX Status RETURNED FROM ISSUE SAFETRACE TX Blood Bank Product RED BLOOD CELLS SAFETRACE TX PRODUCT CODE [id number] SAFETRACE TX CROSSMATCH COMPATIBLE SAFETRACE TX Unit ABO A Pos SAFETRACE TX UNIT NUMBER [id number] SAFETRACE TX Status TX_TIMEINCHART SAFETRACE TX Blood Bank Product RED BLOOD CELLS SAFETRACE [place] PRODUCT CODE [id number] SAFETRACE TX Performing Organization Address [facility] Phone Number SAFETRACE TX Prepare PLT (10/17/2019 9:19 PM CDT) Pathologist Sig nature Unit ABO O Pos SAFETRACE TX UNIT NUMBER [id number] SAFETRACE TX Status RETURNED FROM ISSUE SAFETRACE TX Blood Bank Product PLATELETS SAFETRACE TX PRODUCT CODE [id number] SAFETRACE TX Performing Organization Address [facility] Phone Number SAFETRACE TX Prepare plasma (10/17/2019 9:19 PM CDT) Pathologist Sig nature Unit ABO A Pos SAFETRACE TX UNIT NUMBER [id number] SAFETRACE TX Status RETURNED FROM ISSUE SAFETRACE TX Blood Bank Product FFP SAFETRACE TX PRODUCT CODE [id number] SAFETRACE TX Unit ABO A Pos SAFETRACE TX UNIT NUMBER [id number] SAFETRACE TX Status RETURNED FROM ISSUE SAFETRACE TX Blood Bank Product FFP SAFETRACE TX PRODUCT CODE [id number] SAFETRACE TX Performing Organization Address [facility] Phone Number SAFETRACE [place] Potassium-Stat Lab (10/17/2019 7:50 PM CDT)Only the most recent of4 results within the time period is included. Pathologist Sig nature Potassium 4.5 3.6 - 5.5 meq/L [facility] Specimen Blood, Arterial Performing Organization Address City/[facility] Hospitalcoms Phone Number [address] [address] [place] Sodium Na-Stat Lab (10/17/2019 7:50 PM CDT)Only the most recent of4 results within the time period is included. Pathologist Sig nature Sodium 135 (L) 136 - 145 meq/L [facility] Specimen Blood, Arterial Performing Organization Address City/[facility] Hospitalcoms Phone Number [address] [address] [place] Glucose-Stat Lab (10/17/2019 7:50 PM CDT)Only the most recent of4 resultswithin the time period is included. Pathologist Sig nature Glucose 182 (H) 70 - 110 mg/dL [facility] Specimen Blood, Arterial Performing Organization Address [facility] Phone Number [address] [address] [place] HGB/HCT (H&H)-Stat Lab (10/17/2019 7:50 PM CDT)Only the most recent of4 resultswithin the time period is included. Pathologist Sig nature Hemoglobin 13.9 13.0 - 16.8 g/dL [facility] Hematocrit 41.0 40.0 - 50.0 % [facility] Specimen Blood, Arterial Performing Organization Address [facility] Hospital[facility]s Phone Number [address] [address] [place] Calcium, Ionized (10/17/2019 7:50 PM CDT)Only the most recent of2 resultswithin the time period is included. Pathologist Sig nature Calcium, Ion 1.65 (HH) 1.12 - 1.27 mmol/L [facility] pH, Blood 7.25 [facility] Specimen Blood Performing Organization Address City/State/Zipcode Phone Number [facility] [address] [place] [address] CENTER FL fluoro non-specific up to 1 [...] patient radiation dose information. Performing Organization Address City/[facility]/Zipcode Phone Number GE RIS Tissue Exam (10/17/2019 4:26 PM CDT) Case Report Surgical Pathology Report Case: [id number] [facility] Authorizing Provider: Marc Mathews MD Collected: 10/17/2019 04:26 PM [facility] Ordering Location: [facility] PERIOPERATIVE Received: 10/20/2019 08:32 AM [facility] Pathologist: Carmina Grewal MD Specimens: A) - Gallbladd er B) - Sple en DIAGNOSIS A. GALLBLADDER, CHOLECYSTECTOMY: [facility] Electronically - CHRONIC CHOLECYSTITIS AND CHOLESTEROLOSIS [facility] signed by Carmina, - NO [place] PRESENT [facility] MD Carmina on 10/22/2019 at 4 :34 B. SPLEEN, SPLENECTOMY: PM - WEIGHT: 272 GM - SPLENOMEGALY - MILD VASCULAR CONGESTION, NO SIGNIFICANT PATHOLOG IC ABNORMALITY - NEGATIVE FOR MALIGNANCY OR LYMPHOMA CC/pl Signing Pathologist Direct Phone Line: [phone] CPT Code(s) 29322; [address] [facility] CLINICAL HISTORY Preop diagnosis: [facility] Chronic pancreatitis, [facility] unspecified MEDICAL CENTER pancreatitis type and splenic vein thrombosis. SPECIMEN SOURCE Gallbladder and spleen [facility] GROSS DESCRIPTION A. Received fresh labeled wi th the patient's name, accession number and "gallbladder"is a 7.5 cm in length x 1.5 cm in diameter, previously opened gallbladder. There is no attached cystic duct and no ly [facility] node identified. The ser elma is webster-purple, smooth and hyperemic. Upon opening, there is no bile or calculus present. The mucosa is york-brown and velvety. The wall thickness is 0.2 cm. Clinical Pharmacy Technician sections are submitted in cassette [id number]. [facility] B. Received fresh labeled wi th the [...] B2, parenchyma to hilar margin MICROSCOPIC Performed [facility] Specimen Tissue - Gallbladder structure (body str ucture) Tissue specimen (specimen) - Splenic str ucture (body structure) Performing Organization Address City/State/Zipcode Phone Number [facility] [address] [place] [address] abdomen/pelvis without & with IV contrast (10/16/2019 10:43 AM CDT) Specimen Narrative Performed At FINAL REPORT 410 [facility] TECHNIQUE: CT of the abdomen and pelvis [...] in 2019. (See axial image 37). Cyst sharimn rostomy stent has been removed. ADRENALS: No [...] Report Verified Date/Time: 10/16/2019 13:25:44 Reading Location: [facility] B1 C013Y CT Body R ding Room Procedure Note [...] Verified Date/Time: 10/16/2019 1 3:25:44 Reading Location: [place] [id number] CT Body R eading Room Performing Organization Address City/State/Zipcode Phone Number GE RIS REPORT OF PROCEDURE - ENDOSCOPY URL (10/15/2019 6:42 PM CDT) Narrative Performed At This result has an attachment that is no t available. Urinalysis w/Microscopic (10/15/2019 8:13 AM CDT) Color, UA Yellow [facility] Clarity, UA Hazy [facility] Specific [place], 1.010 1.001 - 1.035 [facility] pH, UA 6.5 5.0 - 8.0 [facility] Protein, UA 20 mg/dL (A) Negative [facility] Glucose, UA Negative Negative [facility] Ketones, UA 100 mg/dL (A) Negative [facility] Bilirubin, UA Negative Negative [facility] Blood, UA Negative Negative [facility] Nitrite, UA Negative Negative [facility] Leukocytes, UA Negative Negative [facility] Urobilinogen, UA 0.2 0.2 - 1.0 mg/dL [facility] RBC, UA 0 /HPF [facility] WBC, UA 0 /HPF [facility] Bacteria, UA Occasional [facility] Mucus Occasional [facility] Squam Epithel, UA <1 /HPF [facility] Yeast Few [facility] Specimen Source [facility] Specimen Urine Narrative Performed At Formula Clerk ID - [[email or web address]] [facility] Formula Clerk ID - [email or web address] Performing Organization Address City/State/Zipcode Phone Number [place] [phone] [place] [address] CENTER IGG SUBCLASS-4 ONLY (10/15/2019 5:32 AM CDT) Pathologist Sig nature Igg 4 64.5 4 - 86 mg/dL [facility] D Specimen Blood Narrative Performed At Performing Lab [facility] [place] [address] [place] [address] Elma Herman MD, PhD, VENKATA Performing Organization Address City/[facility]/Zipcode Phone Number [facility] [address] XR abdomen / KUB 1 view (10/14/2019 [...] Report Verified Date/Time: 10/14/2019 09:37:48 Reading Location: [facility] Reading Room - [place] [address] Procedure Note Interface, External Ris In - [...] Verified Date/Time: 10/14/2019 0 9:37:48 Reading Location: [facility] Reading Room - [place] [address] Performing Organization Address City/State/Zipcode Phone Number GE RIS Triglycerides (10/14/2019 4:34 AM CDT) Pathologist Sig nature Triglycerides 66 mg/dL [facility] Specimen Blood Narrative Performed At TRIGLYCERIDE REFERENCE RANGE [facility] Low Risk <150 Borderline Risk 150-199 High Risk 200-499 Very High Risk >=500 Formula Clerk HELIO - KIRA Jacobsen Performing Organization Address City/State/Zipcode Phone Number [facility] [address] [place] [address] CENTER after 03/16/2019 Additional Health Concerns Infection Onset Date Last Indicated Resolved Time CoronaVirus - Confirmed 03/17/2020 03/17/2020 Insurance Payer Benefit Plan / Subscriber ID Effective Phone Address T ype Group Dates MEDICAID - MEDICAID [id number] 2011-Prese Medi caid MEDICAID [employer] nt Non-Co ntracte CARE d Advance Directives For more information, please contact: [phone] Code Status Date Activated Date Inactivated Comments Full Code 03/16/2020 11:18 PM This code status was determined by: Patient Full Code 01/04/2020 7:18 AM 01/09/2020 1:39 PM This code status was determined by: Patient Full Code 12/13/2019 3:36 PM 12/18/2019 10:12 PM This code status was determined by: Patient Full Code 12/01/2019 10:25 PM 12/07/2019 5:50 PM This code status was determined by: Patient Full Code 10/13/2019 11:29 PM 10/24/2019 3:28 PM This code status was determined by: Patient
--- OUTSIDE RECORDS SUMMARY | 2020-03-17 09:30 | XMS REPORT | Continuity of Care Document ---
:1990 Author Organization [facility] Information CommitChange Care Team Providers Name Role Phone [facility] Commit[facility] Unavailable Un available Problems Problem Status Onset Classification Date Comments Sourc e Date Reported CLINIC VISIT Active 09/30/[address] [place] [address] [facility] GASTRIC VARICES [place] 09/01/[place] SEVERE PANCREATIC 20 Me [facility] UPPER GI BLEED Active 08/27/[address] ACUTE UPPER GI Active 08/27/19 [place], ACUTE BLOOD [place] A Illness, 09/01/2019 [place] ILLNESS, Active UNSPECIFIED [facility] t GASTROINTESTINAL Active HEMORRHAGE, [facility] t UNSPECIFIED ACUTE Active POSTHEMORRHAGIC [place] ANEMIA HYPOTENSION, Active [place]PECIFIED [place] Medications Medication Details Route Status Patient Ordering Order Source Instructions Provider Date Saline Flush Notes: (Same Active 0.9% as: 2019 [facility] Posiflush) Lidocaine Notes: Active Hydrochloride 10 Preservative 2019 [place] MG/ML Injectable free. (Same Solution as: Xylocaine MPF) Saline Flush Notes: (Same Active 0.9% as: 2019 [facility] Posiflush) pantoprazole Notes: For IV Active additive 80 mg + push 2019 [facility] Sodium Chloride reconstitute 0.9% IV 100 mL with 10 ml 0.9% sodium chloride and push over 2 minutes. (Same as: Protonix) Potassium Notes: Infuse Inactive Chloride at a rate of 2019 10 mEq/hr. (Same as: KCL) ondansetron 2 4 mg = 2 mL, No Longer mg/mL injectable IVP, Q6H, 0 Active 2019 [facility] solution Refill(s) D5NS 1,000 mL 1,000 mL, Active Rate: 100 2019 ml/hr, Infuse over: 10 hr, Route: IV, Dosing Weight 68.409 kg, Total Volume: 1,000, Start date: 08/30/19 8:29:00 CDT, Duration: 30 day, Stop date: 09/29/19 8:28:00 CDT, 1.84, m2, 0 Sodium Chloride 250 mL, Route: Active H 0.9% IV IVPB, Start 2019 [facility] date: 08/29/19 16:33:00 CDT, Duration: 30 day, Stop date: 09/28/19 16:32:00 CDT, PRN Line Flush, 0 Dextrose 50% 12.5 gm, 25 Active Syringe (D50W) mL, Route: 2019 [facility] est IVP, Drug Form: INJ, Dosing Weight 68.409, kg, PRN, PRN Blood Glucose Results, Start date: 08/29/19 16:11:00 CDT, Duration: 30 day, Stop date: 09/28/19 16:10:00 CDT, 0 Glucagon 1 mg, Route: Active IM, Drug form: 2019 [facility] PDR/INJ, PRN, Dosing Weight 68.409, kg, PRN Blood Glucose Results, Start date: 08/29/19 16:11:00 CDT, Duration: 30 day, Stop date: 09/28/19 16:10:00 CDT, 0 Omnipaque 350 Notes: (same Inactive injectable as:Omnipaque 2019 [facility] t solution 350). WASTE: F/P - Black; E - [employer]ash [employer] Potassium Notes: Infuse Inactive Chloride at a rate of 2019 [facility] 10 mEq/hr. (Same as: KCL) Lactulose 667 Notes: (Same Inactive MG/ML Oral as:Chronulac) 2019 [facility] Solution Lactulose 667 Notes: (Same Inactive MG/ML Oral as:Chronulac) 2019 [facility] Solution ondansetron Notes: (Same Active as: Zofran) 2019 [facility] MEDICATION WASTE Product Size: 4 mg Product Wasted: ___ mg Golytely Notes: Inactive (polyethylene 2019 [facility] glycol electrolyte solution 4 Liter bottle) (Same as: Golytely, Colyte) Ondansetron Notes: (Same Inactive as: Zofran) 2019 [facility] MEDICATION WASTE Product Size: 4 mg Product Wasted: ___ mg Acetaminophen 2 tab, PO, Inactive 325 MG / Q4H, PRN for 2019 [facility] Hydrocodone pain, # 84 Bitartrate [...] Ondansetron Notes: (Same Active as: Zofran) 2019 [facility] MEDICATION WASTE Product Size: 4 mg Product Wasted: ___ mg pantoprazole Notes: For IV No Longer additive 80 mg + push Active 2019 [facility] Sodium Chloride reconstitute 0.9% IV 100 mL with 10 ml 0.9% sodium chloride and push over 2 minutes. (Same as: Protonix) Trazodone Notes: (Same Active As: Desyrel) 2019 [facility] Maalox Advanced Notes: Active Regular Strength (aluminum 2019 [facility] SUSP hydroxide-magn esium hyd-simethicon e [phone]/5 ml 30 ml ud DAKOTAH) Albuterol 0.833 Notes: (Same Active MG/ML / as: Duoneb) 2019 [facility] Ipratropium [place] 0.167 MG/ML Inhalant Solution [DuoNeb] Docusate Sodium Notes: (Same Active 100 MG Oral as: Colace) 2019 [facility] t Capsule [Colace] (Do Not Crush) Robitussin 100 Notes: (Same Active mg/5 mL oral as: 2019 [facility] liquid Robitussin) Zofran Notes: (Same Active as: Zofran) 2019 [facility] MEDICATION WASTE Product Size: 4 mg Product Wasted: ___ mg Hydralazine Notes: (Same Active as: 2019 [facility] Apresoline) Push over 5 minutes Sodium Chloride 1,000 mL, No Longer 0.9% IV 1,000 mL Rate: 100 [facility] 2019 [facility] ml/hr, Infuse over: 10 hr, Route: IV, Dosing Weight 68.409 kg, Total Volume: 1,000, Start date: 08/28/19 2:15:00 CDT, Duration: 30 day, Stop date: 09/27/19 2:14:00 CDT, 1.84, m2, 0 Saline Flush Notes: Same Active 0.9% as: BD 2019 [facility] Posiflush Sterile pantoprazole Notes: For IV Inactive push 2019 [facility] reconstitute with 10 ml 0.9% sodium chloride and push over 2 minutes. (Same as: Protonix) Morphine Notes: (Same Active as:MORPhine 2019 [facility] Sulfate) Labetalol Notes: (Same Active as: Normodyne, 2019 [facility] Trandate) Push over 2 minutes Give bolus over 2-3 minutes. NS (Bolus) IV 1,000 mL, Inactive 1,000 ml/hr, 2019 [facility] Infuse Over: 1 hr, Route: IV, 1,000, Drug form: INJ, ONCE, Priority: STAT, Dosing Weight 68.409 kg, Start date: 08/28/19 2:07:00 CDT, Stop date: 08/28/19 2:07:00 CDT, 0 Sodium Chloride 1,000 mL, Inactive 0.9% (Bolus) IV 1,000 ml/hr, 2019 [facility] Infuse Over: 1 hr, Route: IV, 1,000, Drug form: INJ, ONCE, Priority: STAT, Dosing Weight 68.409 kg, Start date: 08/28/19 2:01:00 CDT, Stop date: 08/28/19 2:01:00 CDT, 0 ursodiol 500 mg 500 mg = 1 No Longer oral tablet tab, PO, ONCE, [address] 0 Refill(s) Esomeprazole 40 mg, PO, No Longer Daily, 0 2019 [facility] Refill(s) ferrous sulfate 325 mg = 1 No Longer 325 MG Oral tab, PO, BID, 2019 [facility] est Tablet 0 Refill(s) Allergies, Adverse Reactions, Alerts Substance Category Reaction Severity Reaction Status Date Comments S ource type Reported vancomycin Assertion Drug Active MH allergy [facility] piperacillin Assertion Drug Active M H -tazobactam allergy [place] meropenem Assertion Drug Active MH allergy [facility] Immunizations No Data Provided for This Section Results Order Name Results Value Reference Date Interpretation Comments Lenka rce Range CHEM PANEL Amylase Lvl 17 25 - 115 08/30 [facility] CHEM PANEL Glucose Lvl 104 70 - 99 08/30 [facility] CHEM PANEL BUN 1 - 08/30 [facility] CHEM PANEL Creatinine 0.50 0.50 - 08/30 Lvl 1.40 [facility] CHEM PANEL Sodium Lvl 145 135 - 145 08/30 [facility] CHEM PANEL Potassium 3.1 3.5 - 5.1 08/30 Lvl [facility] CHEM PANEL Chloride Lvl 109 95 - 109 08/30 [facility] CHEM PANEL CO2 25 24 - 32 08/30 [facility] CHEM PANEL AGAP 14.1 10.0 - 08/30 MH 20.0 [facility] CHEM PANEL Calcium Lvl 7.4 8.5 - 10.5 08/30 [facility] CHEM PANEL eGFR 145 08/30 Result Comment: The [facility] eGFR is calculated using the [...] Lvl 104 73 - 393 / /2019 [facility] HEMATOLOGY WBC 5.9 3.7 - 10.4 08/30 /2019 [facility] HEMATOLOGY RBC 3.00 4.70 - 08/30 MH 6.10 /2019 [facility] HEMATOLOGY Hgb 9.1 14.0 - 08/30 MH 18.0 /2019 [facility] HEMATOLOGY Hct 26.4 42.0 - 08/30 MH 54.0 /2019 [facility] HEMATOLOGY MCV 88.1 80.0 - 08/30 MH 94.0 /2019 [facility] HEMATOLOGY MCH 30.2 27.0 - 08/30 MH 31.0 /2019 [facility] HEMATOLOGY MCHC 34.3 32.0 - 08/30 MH 36.0 /2019 [facility] HEMATOLOGY RDW 14.6 11.5 - 08/30 MH 14.5 /2019 [facility] HEMATOLOGY Platelet 341 133 - 450 08/30 /2019 [facility] HEMATOLOGY MPV 8.8 7.4 - 10.4 08/30 MH /2019 [facility] HEMATOLOGY Segs 71.9 45.0 - 08/30 MH 75.0 /2019 [facility] HEMATOLOGY Lymphocytes 13.3 20.0 - 08/30 MH 40.0 /2019 [facility] HEMATOLOGY Monocytes 11.1 2.0 - 12.0 / MH /2019 [facility] HEMATOLOGY Eosinophils 3.1 0.0 - 4.0 08/30 MH /2019 [facility] HEMATOLOGY Basophils 0.6 0.0 - 1.0 08/30 /2019 [facility] HEMATOLOGY Neutrophils 4.3 1.5 - 8.1 08/30 MH # /2020 [facility] HEMATOLOGY Lymphocytes 0.8 1.0 - 5.5 / MH # /2020 [facility] HEMATOLOGY Monocytes # 0.7 0.0 - 0.8 08/30 /2019 [facility] HEMATOLOGY Eosinophils 0.2 0.0 - 0.5 / MH # /2019 [facility] HEMATOLOGY Basophils # 0.0 0.0 - 0.2 / MH /2019 [facility] CHEM PANEL Glucose Lvl 57 70 - 99 08/29 /2019 [facility] CHEM PANEL BUN 2 7 - 22 08/29 /2019 [facility] CHEM PANEL Creatinine 0.40 0.50 - 07 MH Lvl 1.40 /2019 [facility] CHEM PANEL Sodium Lvl 143 135 - 145 07 /2019 [facility] CHEM PANEL Potassium 3.5 3.5 - 5.1 07/ MH Lvl /2019 [facility] CHEM PANEL Chloride Lvl 109 95 - 109 08/29 [facility] CHEM PANEL CO2 22 24 - 32 08/29 [facility] CHEM PANEL Calcium Lvl 7.7 8.5 - 10.5 08/29 [facility] CHEM PANEL AGAP 15.5 10.0 - 08/29 MH 20.0 [facility] CHEM PANEL eGFR 159 08/29 Result Comment: The [facility] eGFR is calculated using the [...] <0.05 0.00 - 08/29 n Lvl 0.10 [facility] HEMATOLOGY WBC 6.2 3.7 - 10.4 08/29 [facility] HEMATOLOGY RBC 2.92 4.70 - 08/29 MH 6.10 [facility] HEMATOLOGY Hgb 8.5 14.0 - 08/29 MH 18.0 [facility] HEMATOLOGY Hct 26.2 42.0 - 08/29 MH 54.0 [facility] HEMATOLOGY MCV 89.6 80.0 - 08/29 MH 94.0 [facility] HEMATOLOGY MCH 29.0 27.0 - 08/29 MH 31.0 [facility] HEMATOLOGY MCHC 32.4 32.0 - 08/29 MH 36.0 [facility] HEMATOLOGY RDW 15.0 11.5 - 08/29 MH 14.5 [facility] Platelet 323 133 - 450 08/29 [facility] MPV 8.6 7.4 - 10.4 08/29 [facility] Segs 77.2 45.0 - 08/29 MH 75.0 /2019 [facility] HEMATOLOGY Lymphocytes 11.4 20.0 - 07 MH 40.0 /2019 [facility] HEMATOLOGY Monocytes 9.1 2.0 - 12.0 07 MH /2019 [facility] HEMATOLOGY Eosinophils 1.8 0.0 - 4.0 07/ MH /2019 [facility] HEMATOLOGY Basophils 0.5 0.0 - 1.0 07/ MH /2019 [facility] HEMATOLOGY Neutrophils 4.7 1.5 - 8.1 / MH # /2019 [facility] HEMATOLOGY Lymphocytes 0.7 1.0 - 5.5 08/29 MH # /2019 [facility] HEMATOLOGY Monocytes # 0.6 0.0 - 0.8 / MH [facility] HEMATOLOGY Eosinophils 0.1 0.0 - 0.5 08/29 MH # /2019 [facility] IMMUNOLOGY Coronavirus Not Detected Not 08/28 (COVID-19) (08/29/19 6:29 AM) Detected /2019 [facility] CHEM PANEL Glucose Lvl 71 70 - 99 08/28 [facility] CHEM PANEL BUN 3 7 - 22 08/28 [facility] CHEM PANEL Creatinine 0.50 0.50 - 07 MH Lvl 1.40 /2019 [facility] CHEM PANEL Sodium Lvl 143 135 - 145 08/28 [facility] CHEM PANEL Potassium 3.3 3.5 - 5.1 08/28 MH Lvl /2019 [facility] CHEM PANEL Chloride Lvl 110 95 - 109 08/28 [facility] CHEM PANEL CO2 26 24 - 32 / [facility] CHEM PANEL Calcium Lvl 8.2 8.5 - 10.5 08/28 [facility] CHEM PANEL AGAP 10.3 10.0 - 08/28 MH 20.0 [facility] CHEM PANEL eGFR 145 08/28 Result Comment: The [facility] eGFR is calculated using the [...] 5.2 3.7 - 10.4 08/28 MH /2019 [facility] HEMATOLOGY RBC 2.91 4.70 - 08/28 MH 6.10 [facility] HEMATOLOGY Hgb 8.8 14.0 - 08/28 MH 18.0 /2019 [facility] HEMATOLOGY Hct 25.8 42.0 - 08/28 MH 54.0 /2019 [facility] HEMATOLOGY MCV 88.8 80.0 - 08/28 MH 94.0 [facility] MCH 30.3 27.0 - 08/28 MH 31.0 [facility] MCHC 34.1 32.0 - 08/28 MH 36.0 [facility] RDW 14.4 11.5 - 08/28 MH 14.5 [facility] Platelet 316 133 - 450 08/28 /2019 [facility] MPV 8.6 7.4 - 10.4 08/28 MH /2019 [facility] RBC Morph Normal Normal 08/28 MH (08/29/19 4:30 AM) /2019 [facility] est HEMATOLOGY Plt Morph Normal Normal 08/28 MH (08/29/19 4:30 AM) /2019 [facility] HEMATOLOGY Segs 70.7 45.0 - 08/28 MH 75.0 [facility] Lymphocytes 17.3 20.0 - 08/28 MH 40.0 [facility] HEMATOLOGY Monocytes 10.4 2.0 - 12.0 08/28 /2019 [facility] HEMATOLOGY Eosinophils 1.0 0.0 - 4.0 08/28 MH /2019 [facility] HEMATOLOGY Basophils 0.6 0.0 - 1.0 08/28 MH /2019 [facility] HEMATOLOGY Neutrophils 3.6 1.5 - 8.1 08/28 MH # /2019 [facility] HEMATOLOGY Lymphocytes 0.9 1.0 - 5.5 08/28 MH # [facility] Monocytes # 0.5 0.0 - 0.8 08/28 /2019 [facility] Eosinophils 0.1 0.0 - 0.5 08/28 MH # /2019 [facility] BLOOD BANK RBC product Product available 4 08/27 Resul t RESULTS (08/28/19 5:41 AM) /2019 Comment: [facility] 08/28/2019 06:02 [id number]
Blood available, notified Anne WHITNEY at 08/28/2019 06:02 by NS. BLOOD BANK Antibody Negative 08/27 RESULTS Scrn (08/28/19 3:37 AM) [facility] BLOOD BANK ABO/Rh A POS 08/27 RESULTS /2019 [facility] CHEM PANEL Total 5.1 6.4 - 8.4 08/27 Protein /2019 [facility] CHEM PANEL Albumin Lvl 1.2 3.5 - 5.0 08/27 [facility] CHEM PANEL ALT 7 0 - 65 08/27 [facility] CHEM PANEL AST 14 0 - 37 08/27 [facility] CHEM PANEL Alk Phos 88 39 - 136 08/27 [facility] CHEM PANEL Bili Total 0.3 0.2 - 1.3 08/27 [facility] CHEM PANEL B/C Ratio 12 6 - 25 08/27 [facility] CHEM PANEL Globulin 3.9 2.7 - 4.2 08/27 [facility] CHEM PANEL A/G Ratio 0.3 0.7 - 1.6 08/27 [facility] HEMATOLOGY PT 17.3 12.0 - 08/27 MH 14.7 [facility] HEMATOLOGY INR 1.40 0.85 - 08/27 1.17 [facility] HEMATOLOGY PTT 45.5 22.9 - 08/27 35.8 [facility] HEMATOLOGY RBC Morph Normal Normal 08/27 (08/28/19 3:37 AM) [facility] HEMATOLOGY Plt Morph Normal Normal 08/27 (08/28/19 3:37 AM) [facility] HEMATOLOGY Basophils # 0.0 0.0 - 0.2 08/27 [facility] Pathology Reports No Data Provided for This Section Diagnostic Reports Report Value Date Source Chest 2 views DX EXAM: XR CHEST 2 VIEWS 09/10/2019 [facility] DATE: 09/10/2019 9:36 CDT Center INDICATION: - eval pleural effusions COMPARISON: Chest radiograph 09/05/2019 TECHNIQUE: PA and lateral chest radiographs. FINDINGS: Lines, tubes and hardware: T he right arm PICC tip is heading towards the neck and projects outside the [id number]. Lungs and pleura: Pulmonary vascularity is normal. [...] towards the neck and projecting outside the [id number]. Recommend repositioning. 2. There is interval improv ement of small left pleural effusion status post thoracentesis. 3. Left retrocardiac subsegmental atelectasis. Finding #1 was discussed wit radha Sanchez via telephone on 09/10/2019 at 1531 hours. Thoracentesis wo PROCEDURE: Ultrasound-guided thoracentesis 04/2019 [facility] catheter Procedural Personnel Center Attending physician(s): [...] written. Vascular/Interventional PROCEDURE: Ultrasound-guided thoracentes is 09/08/2019 [facility] Radiology Consult Procedural Personnel Center Attending [...] ABDOMEN WITHOUT AND WITH CONTRA ST 09/05/2019 [facility] IV contrast CT DATE: 09/05/2019 7:54 [...] Enteric contrast: None. DLP (mGy-cm): 1438.90. FINDINGS: Primary Care Coordinator: Noncontributory. Lines, tubes and hardware: None. [...] Placement EXAM: XR CHEST 1 VIEW 09/05/2019 [facility] DX DATE: 09/05/2019 13:44 CDT Center [...] [facility] DATE: 09/04/2019 1:45 PM CDT [facility] er INDICATION: Dyspnea - Right Thoracentesis [...] CT EXAM: CT CHEST WITHOUT CONTRAST 09/02/2019 [facility] DATE: 09/02/2019 12:06 CDT Center INDICATION: [...] IV contrast: None. DLP (mGy-cm): 162.7. FINDINGS: Primary Care Coordinator: Noncontributory. Lines, tubes and hardware: None. [...] DX EXAM: XR ABDOMEN 1 VIEW 09/02/2019 [facility] DATE: 09/02/2019 8:59 CDT Center INDICATION: [...] ple ural effusion with associated atelectasis/consolidation. Bowel: [id number] gaseous distention of th e stomach. Gaseous [...] DX EXAM: XR CHEST 1 VIEW 09/02/2019 [facility] DATE: 09/02/2019 8:59 AM CDT Cent er [...] (mGy): D LP = 169 (mGy-cm) 08/29/2019 [facility] PROCEDURE INFORMATION: Exam: CT Abdomen [...] Carlota Mcgrath MD On 08/29/2019 16:04: 53; [id number] Consultation Notes No Data Provided for This Section Discharge Summaries No Data Provided for This Section History and Physicals No Data Provided for This Section Vital Signs Vital Sign Value Date Comments Source Heart Rate 86 09/01/2019 [facility] Respitory Rate 18 09/01/2019 [facility] Systolic (mm Hg) 106 09/01/2019 [facility] t Diastolic (mm Hg) 69 09/01/[address] [facility] [address] Respitory Rate 18 09/01/2019 [facility] Temperature Oral (F) 99.1 F 09/01/2019 [place] Heart Rate 101 09/01/2019 [facility] Respitory Rate 18 09/01/2019 [facility] Systolic (mm Hg) 98 09/01/2019 [facility] t Diastolic (mm Hg) 68 09/01/[address] [facility] [address] Temperature Oral (F) 98.3 F 08/31/2019 [place] Heart Rate 76 08/31/2019 [facility] Systolic (mm Hg) 107 08/31/2019 [facility] t Diastolic (mm Hg) 72 08/31/2019 [facility] Temperature Oral (F) 98.4 F 08/31/2019 [place] Height 177.8 cm 08/28/2019 [facility] Weight 68.409 08/28/2019 [facility] BMI Calculated 21.64 08/28/2019 [facility] Encounters Location Location Encounter Encounter Reason Attending ADM MI Stat Source Details Type Number For Provider Date Date Visit [facility] Inpatient [id number] Carlos 08/27 08/27 Nigel Siu /2019 [facility] Procedures No Data Provided for This [...] issues Patient to be transferred to the [facility] to be evaluated by the advanced [...] bleed. Patient is being resuscitated at the [facility] ent, getting his 4th unit of PRBC, no hematemesis reported by mother or EMS Vitally stable Plan: Patient is on PPI gtt Zofran 4 mg q6 h to avoid nausea Check H&H post transfusion Plan for upper endoscopy and colonoscopy in AM Biliary stent needs to be evaluated by t [facility] at [facility] or a pancreatic specialist [facility], since all liver labs look unremarkable, would [...] History Date Source Social History TypeResponse 08/28/2019 [facility] Alcohol Never Substance Abuse Use: [...]
--- OUTSIDE RECORDS SUMMARY | 2020-03-17 09:49 | XMS REPORT | Continuity of Care Document ---
:1990 Author Organization [facility] t Address [address] [place] [address] [place] [id number] Care Team Providers Name Role Phone Montrell Coughlin Primary Care Physician Attending Clinician Unavailable Merchant WADE Attending Clinician Mariela Whitaker MD Attending Clinician Eugene WADE Attending Clinician BISHOP BELL Attending Clinician Unavailable Bishop Bell MD Attending Clinician Sathish WADE Attending Clinician Kadi Parks MD Attending Clinician Zahra WADE Attending Clinician Rosa Glass CRNA Attending Clinician Justina Rubio MD Attending Clinician Cortez Freire MD Attending Clinician Mitchell Edgar MD Attending Clinician Wing De La Rosa MD Attending Clinician [phone] Elenita Loyd MD Attending Clinician Bishop Abarca MD Attending Clinician Cierra Reed CRNA Attending Clinician [phone] Ankit Champagne MD Attending Clinician JUSTINA RUBIO Attending Clinician Unavailable PEE MCKEON Attending Clinician Unavailable Du Chavarria MD, Pee Attending Clinician [phone] Todd WADE, Mellissa Attending Clinician Camden WADE, Elisa Attending Clinician Jack WADE, Kai Attending Clinician Vel WADE, Tato Attending Clinician Get Avendaño MD Attending Clinician Celia Cuellar MD Attending Clinician Pennie WADE Attending Clinician Khadijah Maciel MD Attending Clinician Josselyn WADE, Sean Attending Clinician Aristeo Adams MD Attending Clinician Dory Moore MD Attending Clinician Arthur Morocho MD Attending Clinician Mervat Jalloh MD Attending Clinician Tony Clark MD Attending Clinician Kevon Grier MD Attending Clinician Jeremi THOMAS Attending Clinician PENNIE Attending Clinician Unavailable Kp Zarate Attending Clinician PETER Attending Clinician Unavailable CARMELA Attending Clinician Unavailable MARIELA WHITAKER Attending Clinician Unavailable SATHISH Attending Clinician Unavailable MITCHELL EDGAR Attending Clinician Unavailable EUGENE Admitting Clinician Unavailable SATHISH Admitting Clinician Unavailable JUSTINA RUBIO Admitting Clinician Unavailable PEE MCKEON Admitting Clinician Unavailable KHADIJAH MACIEL Admitting Clinician Unavailable Kp Zarate Admitting Clinician FORTUNATO Admitting Clinician Unavailable CARMELA Admitting Clinician Unavailable MARIELA WHITAKER Admitting Clinician Unavailable MITCHELL EDGAR Admitting Clinician Unavailable Payers Payer Name Policy Type Policy Effective Date Expiration Date Sour ce Number MEDICAID - [id number] [address] [facility] MEDICAID MGD 00:00:00 - [facility] [place] [id number] edicaid Non-Contracted Problems Condition Condition Condition Status Onset Resolution Last Treating Co mments Source Name Details Category Date Date Treatment Clinician Date COVID-19 COVID-19 Disease [facility] Medical 00 [place] Generalize Generalize Disease Active 2019- [facility] d 1-30 [facility] - abdominal abdominal 00:00: Medi dk pain pain 00 [place] Upper GI Upper GI Disease Active 2019- [facility] bleed bleed 0- [facility] - [facility] Medical 00 [place] Acute Acute Disease Active 2020-[address] [facility] [address] postoperat postoperat 912 Mariah kes - yuridia pain yuridia pain 00:00: Medica l 00 [place] Acute Acute Disease Active 2020-[address] [facility] respirator respirator 9- Mariah kes - y y 00:00: Medical insufficie insufficie 00 Ce nter ncy, ncy, postoperat postoperat yuridia yuridia Hemorrhagi Hemorrhagi Disease Active 2020-[address] c shock c shock 10-17 [facility] - 00:[facility]: Medical 00 [place] Metabolic Metabolic Disease Active 2020-[address] [facility] acidosis acidosis 10-17 [facility] - 00:[facility]: Medical 00 [place] Oliguria Oliguria Disease Active 2020-0 [facility] - [facility] Medical 00 Center Acute Acute Disease Active 2020-[address] [facility] blood loss blood loss -12 Mariah kes - anemia anemia 00:00: Medical 00 [place] Hyperglyce Hyperglyce Disease Active 2020-[address] mary ann mary ann 10-17 [facility] - 00:[facility]: Medical 00 [place] S/P S/P Disease Active 2020-[address] [facility] splenectom splenectom 9-12 Mariah kes - y during y during 00:00: Medica l current current 00 [place] hospitaliz hospitaliz ation ation Gastric Gastric Disease Active 2020-[address] varices varices 10-12 [facility] - 00:00: Medical 00 Center CLINIC Diagnosis Active 2019-2019-10-14 [facility] oria VISIT 09-29 12:21:00 l CLINIC 00:00: Nigel VISIT 00 Active 09/30/2019 [facility] GASTRIC Diagnosis Active 2019-10-02 Ut moria VARICES 08-31 15:46:00 l SEVERE GASTRIC 00:00: Nigel PANCREATIC VARICES 00 NECR SEVERE PANCREATIC NECR Active 09/01/2019 [facility] UPPER GI Diagnosis Active 2019-08-28 M emoria BLEED 08-26 00:59:00 l UPPER GI 00:00: Deshawn n BLEED 00 Active 08/27/2019 [facility] ACUTE Diagnosis Active 2019-09-09 Mem oria UPPER GI 08-26 21:51:00 l BLEED, ACUTE 00:00: Nigel ACUTE UPPER GI 00 BLOOD LOSS BLEED, A ACUTE BLOOD LOSS A Active 08/27/2019 [facility] Obstructiv Obstructiv Disease Active [facility] e jaundice e jaundice 1-10 Mariah kes - 00:00: Medical 00 [place] GI bleed GI bleed Disease Active 2019- [facility] 08[facility] - [facility]: Medical 00 [place] Leukocytos Leukocytos Disease Active 2019- [facility] is is 08-27 [facility] - 00:00: Medical 00 [place] Hypomagnes Hypomagnes Disease Active 2019- [facility] emia emia 07-28 [facility] - 00:00: Medical 00 [place] 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 6 [facility] - pancreatit pancreatit 00:00: Me dical is is 00 Center Peripancre Peripancre Disease Active 2019- [facility] atic fluid atic fluid 6-06 Mariah kes - collection collection 00:00: Ut dical 00 Center Cholangiti Cholangiti Disease Active 2019- [facility] s s - [facility] - 00:00: Medical 00 [place] ILLNESS, Diagnosis Active 2019-08-28 M emoria UNSPECIFIE 00:59:00 l D ILLNESS, Deshawn n UNSPECIFIE D Active [facility] GASTROINTE Diagnosis Active 2019-09-09 Memoria STINAL 21:51:00 l HEMORRHAGE Deshawn n , GASTROINTE UNSPECIFIE STINAL D HEMORRHAGE , UNSPECIFIE D Active [facility] ACUTE Diagnosis Active 2019-09-09 Mem oria POSTHEMORR 21:51:00 l HAGIC ACUTE Nigel ANEMIA POSTHEMORR HAGIC ANEMIA Active [facility] HYPOTENSIO Diagnosis Active 2019-09-09 Memoria N, 21:51:00 l UNSPECIFIE Deshawn n D HYPOTENSIO N, UNSPECIFIE D Active [facility] Illness, Problem 2019-09-01 Mem oria unspecifie 09:02:02 l d Illness, Deshawn n unspecifie d 09/01/2019 [facility] Allergies, Adverse Reactions, Alerts Allergy Allergy Status Severity Reaction(s) Onset Inactive Treating Comm ents Source Name Type Date Date Clinician Morphine Drug Active Nausea And [facility] Allergy Vomiting 1-10 [facility] - 00:[facility]: Medical 00 [place] tazobact DA Active [facility] am 8 Clear 00:00: Garrett 00 [facility] piperaci DA Active [facility] llin 09-11 Clear 00:00: Garrett [facility] vancomyc DA Active [facility] in 09-11 Clear 00:00: Garrett 00 [facility] MEREPENE DA Active [facility] M 09-11 Clear 00:00: Garrett 00 [facility] Vancomyc Propensi Active Rash Rash with [facility] in ty to 7- lip [facility] - Analogue adverse 00:00: swelling [...] Active Hives, [facility] m-0.9% Allergy Itching 6- [facility] - Sodium 00:00: Medical Chloride 00 [place] vancomyc vancomyc Active Memori a in in l Nigel piperaci piperaci Active Memori a llin-sam llin-sam l obactam obactam [place] meropene meropene Active Memori a m chente Manning Social History Social Habit Start Date Stop Date Quantity Comments Source Sex Assigned At [facility] Exposure to Not sure [facility] - SARS-[facility]-2 [facility] (event) Tobacco use and 2020-03-17 2020-03-17 Never used MAGGIE Davis Mariah kes - exposure 00:00:00 00:00:00 Medical Center Alcohol intake 2020-03-17 2020-03-17 Ex-drinker MAGGIE Grimaldok es - 00:00:00 00:00:00 (finding) Medical Center Social History 2019-08-28 2019-08-28 [facility] 06:50:55 06:50:55 Smoking Status Start Date Stop Date Source Never smoker [facility] Medications Ordered Filled Start Stop Current Ordering Indication Dosage Frequency Signature Comments Components Source Medication Medication Date Date Medication? Clinician (SIG) Name Name ursodioL Yes 500mg QD Take [address] [facility] [facility] (ACTIGALL) 2-10 mg by Adriana - 500 MG 05:01: mouth Medical tablet 35 daily. Center sucralfate 2019-02- No 1g Q.25D Take [address] (CARAFATE) 03-11 tablet (1 Marilyn es - 1 gram 00:00: 23:59 g total) Medica l tablet 00 :00 by mouth 4 Center (four) times daily for 30 days. lipase-prot 2019-02- No 1{capsu Q.[id number] Take [address] ease-amylas 03-11 le} [id number] capsule by Adriana - e (CREON) 00:00: 23:59 3D mouth 3 Medi dk 36,000-114, 00 :00 (three) Cente r 000- times 180,000 daily for unit CpDR 30 days. capsule Lactobacill 2019-02- No 2{tbl} Q.5D Take [address] us 03-11 tablets by Adriana - acidoph-L.b 00:00: 23:59 mouth 2 Me dical ulgar 00 :00 (two) Center (FLORANEX) times 1 million daily for cell Tab 30 days. per tablet ciprofloxac 2019-02- No 500mg Q.5D Take [address] in HCl 03-11 tablet Mariahkes - (CIPRO) 500 00:00: 23:59 (500 mg Me dical MG tablet 00 :00 total) by Cente r mouth 2 (two) times daily for 5 days. metroNIDAZO 2019-02- No 500mg Q.[id number] Take [address] LE (FLAGYL) 03-11 [id number] tablet [facility] - 500 MG 00:00: 23:59 3D (500 mg Medical tablet 00 :00 total) by Center mouth 3 (three) times daily for 5 days. omeprazole 2019-02- Yes 40mg Q.5D Take [address] (PriLOSEC) 03-10 capsule [facility] - 40 MG 00:00: 23:59 (40 mg Medical capsule 00 :00 total) by Center mouth 2 (two) times daily for 84 days. polyethylen 2019-02- No 17g QD Take [address] [facility] e glycol 03-10 by mouth [facility] - (GLYCOLAX) 00:00: 23:59 daily for M edical 17 gram 00 :00 30 days. Center packet midodrine 2019-02 Yes 10mg Q.[id number] Take [address] (PROAMATINE 02-16 [id number] tablet (10 [facility] - ) 10 MG 00:00: 3D mg total) Medic al tablet 00 by mouth 3 Center (three) times daily. pantoprazol 2019-02- No 40mg Q.5D Take [address] e 02-16 tablet (40 [facility] - (PROTONIX) 00:00: 00:00 mg total) M edical 40 MG 00 :00 by mouth 2 Center tablet (two) times daily. sucralfate 2019-02- No 1g Take [address] (CARAFATE) 02-05 mLs (1 g Luke s - 100 mg/mL 00:00: 00:00 total) by Me dical suspension 00 :00 mouth Center every 6 (six) hours for 30 days. traMADoL 2019-02- No 100mg Take 2 [facility] (ULTRAM) 50 02-05 tablets Luke s - mg tablet 00:00: 00:00 (100 mg Medi dk 00 :00 total) by Center mouth every 6 (six) hours as needed for Pain for up to 28 days. Max Daily Amount: 400 mg pantoprazol 2019-02- No 40mg Q.5D Take [address] [facility] e 1-01 11-12 tablet (40 [facility] - (PROTONIX) 00:00: 00:00 mg total) M edical 40 MG 00 :00 by mouth 2 Center tablet (two) times daily for 84 days. ondansetron 2019-02- No 4mg Take [address] [facility] (ZOFRAN) 4 12-17 by mouth Luke s - MG tablet 00:00: 00:00 every 12 Med ical 00 :00 (twelve) Center hours as needed for Nausea. traMADoL 2019- No 50mg Take [address] (ULTRAM) 50 10-23 by mouth Marilyn es - mg tablet 08:30: 00:00 every 6 Medi dk 37 :00 (six) Center hours as needed for Pain. levoFLOXaci No 750mg QD Take [address] n 10-23 mg by [facility] - (LEVAQUIN) 08:30: 00:00 mouth Medic al 750 MG 37 :00 daily. Center tablet midodrine No 5mg Q.[id number] Take [address] [facility] (PROAMATINE 10-23 [id number] by mouth 3 [facility] - ) 5 MG 08:30: 00:00 3D (three) Medical tablet 37 :00 times Center daily. senna No 17.2mg QD Take [address] (SENOKOT) 10-23 tablets [facility] - 8.6 mg 00:00: 23:59 (17.2 mg Medica l tablet 00 :00 total) by Center mouth nightly. gabapentin No 200mg Q.[id number] Take [address] (NEURONTIN) 10-23 [id number] capsules [facility] - 100 MG 00:00: 23:59 3D (200 mg Medical capsule 00 :00 total) by Center mouth 3 (three) times daily. midodrine 2019- No 10mg Q.[id number] Take [address] [facility] (PROAMATINE 10-23 [id number] tablets [facility] - ) 5 MG 00:00: [...] Pain. Max Daily Amount: 400 mg metroNIDAZO 2020- No 500mg Q.[id number] Take [address] LE (FLAGYL) 10-20 09-07 [id number] mg by [facility] - 500 MG 23:09: [...] as: l 21:00: BD Nigel Posiflush) Lidocaine 0 Yes Notes: Memori a Hydrochlori 7-26 Preservati l de 10 MG/ML 16:00: ve free. He rmann Injectable 00 (Same as: Solution Xylocaine MPF) Lidocaine Yes Notes: Memori a Hydrochlori 7-26 Preservati l de 10 MG/ML 16:00: ve free. He rmann Injectable 00 (Same as: Solution Xylocaine MPF) Saline Yes Notes: Memoria Flush 0.9% 7-26 (Same as: l 15:08: BD Nigel 00 Posiflush) pantoprazol 0 Yes Notes: For Memoria e additive 7-26 IV push l 80 mg + 15:08: reconstitu Herm ramona Sodium 00 te with 10 Chloride ml 0.9% 0.9% IV 100 sodium mL chloride and push over 2 minutes. (Same as: Protonix) Saline Yes Notes: Memoria Flush 0.9% 7-26 (Same as: l 15:08: BD [place] 00 Posiflush) pantoprazol 2019-0 Yes Notes: For Memoria e additive 7-26 IV push l 80 mg + 15:08: reconstitu Herm ramona Sodium 00 te with 10 Chloride ml 0.9% 0.9% IV 100 sodium mL chloride and push over 2 minutes. (Same as: Protonix) Potassium 2020-0 No Notes: Memori a Chloride 7-26 Infuse at l 14:00: a rate of [place] 00 10 mEq/hr. (Same as: KCL) Potassium [...] mL 7-25 Rate: 100 l 13:29: ml/hr, [place] 00 Infuse over: 10 hr, Route: IV, Dosing Weight 68.409 kg, Total Volume: 1,000, Start date: 08/30/19 8:29:00 CDT, Duration: 30 day, Stop date: 09/29/19 8:28:00 CDT, 1.84, m2, 0 D5NS 1,000 2020-0 Yes 1,000 mL, Me moria mL 7-25 Rate: 100 l 13:29: ml/hr, [place] 00 Infuse over: 10 hr, Route: IV, [...] 7-24 25 mL, l (D50W) 21:11: Route: [place] IVP, Drug Form: INJ, Dosing Weight 68.409, kg, PRN, PRN Blood Glucose Results, Start date: 08/29/19 16:11:00 CDT, Duration: 30 day, Stop date: 09/28/19 16:10:00 CDT, 0 Glucagon 2020-0 Yes 1 mg, Memoria -24 Route: IM, l 21:11: Drug form: PDR/INJ, PRN, Dosing Weight 68.409, kg, PRN Blood Glucose Results, Start date: 08/29/19 16:11:00 CDT, Duration: 30 day, Stop date: 09/28/19 16:10:00 CDT, 0 Dextrose 2020-0 Yes 12.5 gm, Memor ia 50% Syringe 7- 25 mL, l (D50W) 21:11: Route: IVP, Drug Form: INJ, Dosing Weight 68.409, kg, PRN, PRN Blood Glucose Results, Start date: 08/29/19 16:11:00 CDT, Duration: 30 day, Stop date: 09/28/19 16:10:00 CDT, 0 Glucagon 2020-0 Yes 1 mg, Memoria 08-28 Route: IM, l 21:11: Drug form: PDR/INJ, [...] Infuse at l 14:00: a rate of [place] 00 10 mEq/hr. (Same as: KCL) Potassium 2019-0 No Notes: Memori a Chloride 7-24 Infuse at l 14:00: a rate of [place] 00 10 mEq/hr. (Same as: KCL) Lactulose 2019-0 No Notes: Memori a 667 MG/ML 7-24 (Same l Oral 02:57: as:Chronul [place] Solution 00 ac) Lactulose 2019-0 No Notes: Memori a 667 MG/ML 7-24 (Same l Oral 02:57: as:Chronul [place] Solution 00 ac) Lactulose 2019-0 No Notes: Memori a 667 MG/ML 7-24 (Same l Oral 02:54: as:Chronul [place] Solution 00 ac) Lactulose 2019-0 No Notes: Memori a 667 MG/ML 7-24 (Same l Oral 02:54: as:Chronul [place] Solution 00 ac) ondansetron 2019-0 Yes Notes: Guy zoila 7-23 (Same as: l 23:00: Zofran) Nigel 00 MEDICATION WASTE Product Size: 4 mg Product Wasted: ___ mg ondansetron 2020-0 Yes Notes: Guy zoila 7-23 (Same as: l 23:00: Zofran) [place] 00 MEDICATION WASTE Product Size: 4 mg Product Wasted: ___ mg Golytely 2020-0 No Notes: Memoria 7-23 (polyethyl l 19:31: avi glycol Nigel 00 electrolyt e solution 4 Liter bottle) (Same as: Golytely, Colyte) Golytely 2020-0 No Notes: Memoria 7-23 (polyethyl l 19:31: avi glycol [place] 00 electrolyt e solution 4 Liter bottle) (Same as: Golytely, Colyte) Ondansetron 2020-0 No Notes: Guy zoila 7-23 (Same as: l 18:01: Zofran) Nigel 00 MEDICATION WASTE Product Size: 4 mg Product Wasted: ___ mg Ondansetron 2020-0 No Notes: Guy zoila 7-23 (Same as: l 18:01: Kavithafredinson) Nigel 00 MEDICATION WASTE Product Size: 4 [...] tab, PO, l oral 07:35: Daily, # [place] enteric 00 30 tab, 0 coated Refill(s) [...] 7-23 (Same as: l 07:15: Zofran) Nigel MEDICATION WASTE Product Size: 4 mg Product Wasted: ___ mg pantoprazol 2020-0 No Notes: For Memoria e additive 7-23 IV push l 80 mg + 07:15: reconstitu Herm ramona Sodium 00 te with 10 Chloride ml 0.9% 0.9% IV 100 sodium mL chloride and push over 2 minutes. (Same as: Protonix) Trazodone 2020-0 Yes Notes: Memori a 7-23 (Same As: l 07:15: Desyrel) [place] 00 Maalox 2020-0 Yes Notes: Memoria Advanced 7-23 (aluminum l Regular 07:15: hydroxide- Herm ramona Strength 00 magnesium SUSP hyd-simeth icone 200-200-20 mg/5ml 30 ml ud DAKOTAH) Albuterol 2020-0 Yes Notes: Memori a 0.833 MG/ML 7-23 (Same as: l / 07:15: Duoneb) [place] Ipratropium 00 [place] Bell 0.167 MG/ML Inhalant Solution [DuoNeb] Docusate 2020-0 Yes Notes: Memoria Sodium 100 7-23 (Same as: l MG Oral 07:15: Colace) Nigel Capsule 00 (Do Not [Colace] Crush) Robitussin 2020-0 Yes Notes: Memor ia 100 mg/5 mL - (Same as: l oral liquid 07:15: Robitussin [place] 00 ) Zofran 2020-0 Yes Notes: Memoria 7-23 (Same as: l 07:15: Zofran) Nigel 00 MEDICATION WASTE Product Size: 4 mg Product Wasted: ___ mg Hydralazine 2020-0 Yes Notes: Guy zoila 7-23 (Same as: l 07:15: Apresoline Nigel 00 ) Push over 5 minutes Sodium 2020-0 No 1,000 mL, Memori a Chloride - Rate: 100 l 0.9% IV 07:15: ml/hr, [place] 1,000 mL 00 Infuse over: 10 hr, Route: IV, Dosing Weight 68.409 kg, Total Volume: 1,000, Start date: 08/28/19 2:15:00 CDT, Duration: 30 day, Stop date: 09/27/19 2:14:00 CDT, 1.84, m2, 0 Saline 2020-0 Yes Notes: Memoria Flush 0.9% 7-23 Same as: l 07:15: BD [place] 00 Posiflush Sterile Ondansetron 2020-0 Yes Notes: [...] a 7-23 (Same As: l 07:15: Desyrel) [place] 00 Maalox 2020-0 Yes Notes: Memoria Advanced - (aluminum l Regular 07:15: hydroxide- Herm ramona Strength 00 magnesium SUSP hyd-simeth icone 200-200-20 mg/5ml 30 ml ud DAKOTAH) Albuterol 2020-0 Yes Notes: Memori a 0.833 MG/ML - (Same as: l / 07:15: Duoneb) [place] Ipratropium 00 [place] 0.167 MG/ML Inhalant Solution [DuoNeb] Docusate 2020-0 Yes Notes: Memoria Sodium 100 -23 (Same as: l MG Oral 07:15: Colace) [place] Capsule 00 (Do Not [Colace] Crush) Robitussin [...] 07:15: BD Nigel 00 Posiflush Sterile pantoprazol 2019-0 No Notes: For Memoria e 7- IV push l 07:07: reconstitu [place] 00 te with 10 ml 0.9% sodium chloride and push over 2 minutes. (Same as: Protonix) Morphine 2020-0 Yes Notes: Memoria 7- (Same l 07:07: as:MORPhin Nigel 00 e Sulfate) Labetalol 2019-0 Yes Notes: Memori a 7- (Same as: l 07:07: Normodyne, Nigel 00 [...] Notes: Memoria 7- (Same l 07:07: as:MORPhin Nigel 00 e Sulfate) Labetalol 2019-0 Yes Notes: Memori a 7- (Same as: l 07:07: Normodyne, Nigel 00 [...] tab, PO, l tablet 17:00: ONCE, 0 [place] 00 Refill(s) ursodiol 2020-0 No 500 mg = 1 Mem oria 500 mg oral 7-22 tab, PO, l tablet 17:00: ONCE, 0 Nigel 00 Refill(s) Esomeprazol 2020-0 No 40 mg, PO, Memoria e 7-22 Daily, 0 l 14:06: Refill(s) [place] 00 ferrous 2020-0 No 325 mg = 1 Guy zoila sulfate 325 7-22 tab, PO, l MG Oral 14:06: BID, 0 [place] Tablet 00 Refill(s) Esomeprazol 2020-0 No 40 mg, PO, Memoria e 7-22 Daily, 0 l 14:06: Refill(s) Nigel 00 ferrous 2020-0 No 325 mg = 1 Guy zoila sulfate 325 7-22 tab, PO, l MG Oral 14:06: BID, 0 [place] Tablet 00 Refill(s) ferrous 2018-02 Yes 1{tbl} Q.5D Take [address] [facility] sulfate 325 2-15 tablet by Marilyn es - (65 FE) MG 00:00: mouth 2 Medi dk tablet 00 (two) Center times daily. pantoprazol 2018-02- No 40mg Q.5D Take [address] [facility] e 0-23 01 by mouth 2 [facility] - (PROTONIX) 00:00: 00:00 (two) Medic al 40 MG 00 :00 times Center tablet daily . ondansetron Yes 1{tbl} Take [address] (ZOFRAN-ODT 6-27 tablet by Marilyn es - ) 4 MG 00:00: mouth Medical disintegrat 00 every 8 Cente r ing tablet (eight) hours as needed. docusate 2019- No 100mg Take 100 [facility] [...] Completed [facility] - 3YR+ 00:00:00 [facility] Meningococcal 2019-10-[address] - Conjugate 00:00:00 [facility] Pneumococcal 2019-10-[address] [facility] - Conjugate (Prevnar) 00:00:00 [facility] al [place] 13-Valent Meningococcal B, Omv 2019-10-[address] [facility] - 00:00:00 [facility] HiB 2019-10-[address] [facility] - 00:00:00 [facility] Center Vital Signs Vital Name Observation Time Observation Value Comments Source Systolic blood 2020-03-17 04:50:00 102 mm[Hg] [facility] - pressure [facility] Center Diastolic blood 2020-03-17 04:50:00 60 mm[Hg] [facility] Center Heart rate 2020-03-17 04:50:00 80 /min [facility] Body temperature 2020-03-17 04:50:[address] [facility] Center Respiratory rate 2020-03-17 04:50:00 18 /min [facility] Oxygen saturation in 2020-03-17 04:50:00 97 /min [facility] - Arterial blood by Medical Ce nter Pulse oximetry Body height 2020-03-17 00:55:00 176 cm [facility] Body weight 2020-03-17 00:55:00 51.03 kg [facility] BMI 2020-03-17 00:55:00 16.47 kg/m2 [facility] Heart Rate 2019-09-01 04:14:00 [facility] [place] Respitory Rate 2019-09-01 04:14:00 Memori al [place] Systolic (mm Hg) 2019-09-01 04:14:00 Guy rial Nigel Diastolic (mm Hg) 2019-09-01 04:14:00 Mem orial [place] Respitory Rate 2019-09-01 01:19:00 Memori al Nigel Temperature Oral (F) 2019-09-01 00:33:00 99.1 F [facility] Nig[facility] Heart Rate 2019-09-01 00:33:00 [facility] [place] Respitory Rate 2019-09-01 00:33:00 Memori al [place] Systolic (mm Hg) 2019-09-01 00:33:00 Guy rial [place] Diastolic (mm Hg) 2019-09-01 00:33:00 Mem orial [place] Temperature Oral (F) 2019-08-31 21:00:00 98.3 F [facility] [place] Heart Rate 2019-08-31 21:00:00 [facility] [place] Systolic (mm Hg) 2019-08-31 21:00:00 Guy rial Nigel Diastolic (mm Hg) 2019-08-31 21:00:00 Mem orial [place] Temperature Oral (F) 2019-08-31 17:00:00 98.4 F [facility] Nigel Height 2019-08-28 06:22:00 177[facility]8 [facility] 2019-08-28 06:22:00 [facility] [place] BMI Calculated 2019-08-28 06:22:00 Memori al Nigel Procedures Procedure Date / Time Performing Clinician Source Performed CBC W/PLT COUNT & AUTO 2020-03-17 05:28:00 Larisa Swenson [facility] COMPREHENSIVE METABOLIC 2020-03-17 05:27:00 Larisa Swenson [facility] IRON, TIBC, % SAT. 2020-01-09 04:12:00 Sweeney [facility] (WITHOUT FERRITIN) [facility] CBC W/PLT COUNT & AUTO 2020-01-09 04:12:00 Zahra [facility] MAGNESIUM 2020-01-09 04:12:00 Zahra [facility] COMPREHENSIVE METABOLIC 2020-01-09 04:12:00 Sweeney [facility] BASIC METABOLIC PANEL (7) 2020-01-08 04:23:00 [facility] AUTO 2020-01-07 11:09:00 Adio, [facility], Elizabethtoneli Pawan [facility] BASIC METABOLIC PANEL (7) 2020-01-07 11:09:00 Adio, Osman Wallis [facility] URINALYSIS W/ REFLEX URINE 2020-01-07 08:55:00 Adio, Osman Wallis [facility] SARS-COV2/RT-PCR ([facility] & 2020-01-06 10:53:00 Adio, Osman Jacobsen [facility] BASIC METABOLIC PANEL (7) 2020-01-06 10:46:00 Adio, Osman Wallis [facility] HEPATIC FUNCTION PANEL 2020-01-06 10:46:00 Adio, Osman Wallis [facility] CBC W/PLT COUNT & AUTO 2020-01-06 10:46:00 Adio, Osman Wallis [facility] (CELLAVISION MANUAL DIFF) 2020-01-06 10:46:00 Adio, Osman Wallis [facility] URINALYSIS W/ REFLEX URINE 2020-01-05 07:19:00 Francisco Akers [facility] XR CHEST 1 VIEW 2020-01-05 06:59:00 Francisco Akers [facility] - PORTABLE/BEDSIDE [facility] Center BLOOD CULTURE 2020-01-05 05:11:00 Francisco Akers [facility] BLOOD CULTURE 2020-01-05 05:06:00 Francisco Akers [facility] COMPREHENSIVE METABOLIC 2020-01-05 04:26:00 Sathish [facility] CBC W/PLT COUNT & AUTO 2020-01-05 04:26:00 Sathish [facility] MR ABDOMEN WO CONTRAST 2020-01-04 17:24:00 Nael, Rudi [facility] CBC W/PLT COUNT & AUTO 2020-01-04 08:16:00 Sathish [facility] COMPREHENSIVE METABOLIC 2020-01-04 08:16:00 Sathish [facility] PROTHROMBIN TIME/INR 2020-01-04 08:16:00 Sathish [facility] LIPASE 2020-01-04 08:16:00 Sathish [facility] URINALYSIS W/ REFLEX URINE 2019-12-18 15:46:00 Perla Loyd [facility] HEMOGLOBIN AND HEMATOCRIT 2019-12-18 13:34:00 Perla Loyd [facility] CBC (HEMOGRAM ONLY) 2019-12-18 05:38:00 Kiley Gagnon [facility] BASIC METABOLIC PANEL (7) 2019-12-18 05:38:00 Kiley Gagnon [facility] MAGNESIUM 2019-12-18 05:38:00 Kiley Gagnon [facility] PHOSPHORUS 2019-12-18 05:38:00 Kiley Gagnon [facility] PROTHROMBIN TIME/INR 2019-12-18 05:38:00 Kiley Gagnon [facility] CT ABDOMEN/PELVIS WITH IV 2019-12-18 02:06:00 Perla Loyd [facility] HEMOGLOBIN AND HEMATOCRIT 2019-12-17 14:39:00 Kiley Gagnon [facility] HEMOGLOBIN AND HEMATOCRIT 2019-12-17 03:31:00 Kiley Gagnon [facility] CBC (HEMOGRAM ONLY) 2019-12-17 03:31:00 Kiley Gagnno [facility] BASIC METABOLIC PANEL (7) 2019-12-17 03:31:00 Kiley Gagnon [facility] MAGNESIUM 2019-12-17 03:31:00 Kiley Gagnon [facility] PHOSPHORUS 2019-12-17 03:31:00 Marcos Gagnonique Anaid [facility] PROTHROMBIN TIME/INR 2019-12-17 03:31:00 Marcos Gagnonique Anaid [facility] HEPATIC FUNCTION PANEL 2019-12-17 03:31:00 Chelsi [facility] Anaid [facility] HEMOGLOBIN AND HEMATOCRIT 2019-12-16 15:09:00 Kiley Gagnon [facility] POCT-GLUCOSE METER 2019-12-16 12:51:00 Katina De La Rosa [facility] HEMOGLOBIN AND HEMATOCRIT 2019-12-16 09:33:00 Florecita Franklin [facility] LACTIC ACID, VENOUS 2019-12-16 09:33:00 Marcos Gagnonique Anaid [facility] CBC (HEMOGRAM ONLY) 2019-12-16 04:24:00 [facility]OL[facility] (7) 2019-12-16 04:24:00 Kiley Gagnon [facility] MAGNESIUM 2019-12-16 04:24:00 Kiley Gagnon [facility] PHOSPHORUS 2019-12-16 04:24:00 [facility]OT[facility]/INR 2019-12-16 04:24:00 Chelsi [facility] Anaid [facility] HEPATIC FUNCTION PANEL 2019-12-16 04:24:00 Marcos Gagnonique Anaid [facility] LIPASE 2019-12-16 04:24:[address] [facility] HEMOGLOBIN AND HEMATOCRIT 2019-12-15 21:22:00 Florecita Franklin [facility] HEMOGLOBIN AND HEMATOCRIT 2019-12-15 17:02:00 Florecita Franklin [facility] OXYGEN SATURATION, 2019-12-15 13:48:00 [facility] OXYGEN SATURATION, 2019-12-15 13:14:00 MoforJosephinee [facility] HEMOGLOBIN AND HEMATOCRIT 2019-12-15 10:32:00 Florecita Franklin [facility] CBC (HEMOGRAM ONLY) 2019-12-15 03:47:00 Kiley Gagnon [facility] BASIC METABOLIC PANEL (7) 2019-12-15 03:47:00 Kiley Gagnon [facility] MAGNESIUM 2019-12-15 03:47:00 Kiley Gagnon [facility] PHOSPHORUS 2019-12-15 03:47:00 Kiley Gagnon [facility] PROTHROMBIN TIME/INR 2019-12-15 03:47:00 Kiley Gagnon [facility] HEPATIC FUNCTION PANEL 2019-12-15 03:47:00 Kiley Gagnon [facility] PREPARE LEUKO-REDUCED RBC 2019-12-14 23:54:[address] [facility] HEMOGLOBIN AND HEMATOCRIT 2019-12-14 21:49:00 Florecita Franklin [facility] LACTIC ACID, VENOUS 2019-12-14 12:44:00 Kiley Gagnon [facility] HEMOGLOBIN AND HEMATOCRIT 2019-12-14 11:29:00 Florecita Franklin [facility] REPORT OF PROCEDURE - 2019-12-14 08:27:29 Marvin Champagne [facility] ENDOSCOPY [facility] CBC (HEMOGRAM ONLY) 2019-12-14 04:34:00 Kiley Gagnon [facility] BASIC METABOLIC PANEL (7) 2019-12-14 04:34:00 Kiley Gagnon [facility] MAGNESIUM 2019-12-14 04:34:00 Kiley Gagnon [facility] PHOSPHORUS 2019-12-14 04:34:00 Kiley Gagnon [facility] APTT 2019-12-14 04:34:00 Florecita Franklin [facility] PROTHROMBIN TIME/INR 2019-12-14 04:34:00 Kiley Gagnon [facility] TRANSFUSE LEUKO-REDUCED 2019-12-14 01:09:33 Florecita Franklin [facility] - RED BLOOD CELLS [facility] HEMOGLOBIN AND HEMATOCRIT 2019-12-14 01:00:00 Florecita Franklin [facility] BLOOD GAS, ARTERIAL 2019-12-14 01:00:00 Julianne [facility] IR EMBOLIZATION ARTERIAL 2019-12-13 23:25:00 Julianne [facility] TRANSFUSE LEUKO-REDUCED 2019-12-13 22:06:42 Florecita Franklin [facility] RED BLOOD CELLS [facility] SARS-COV2/RT-PCR ([facility] & 2019-12-13 17:36:00 Kiley Gagnon [facility] - REF LABS) [facility] PROTHROMBIN TIME/INR 2019-12-13 17:31:00 Florecita Franklin [facility] PT/APTT 2019-12-13 17:31:00 Florecita Franklin [facility] FIBRINOGEN 2019-12-13 17:31:[address] [facility] UPPER ENDOSCOPY 2019-12-13 16:56:[address] [facility] CBC (HEMOGRAM ONLY) 2019-12-13 16:27:00 Florecita Franklin [facility] COMPREHENSIVE METABOLIC 2019-12-13 16:27:00 Florecita Franklin [facility] - PANEL [facility] MAGNESIUM 2019-12-13 16:27:[address] [facility] TYPE AND SCREEN, AUTOMATED 2019-12-13 16:27:[address] [facility] REPORT OF PROCEDURE - 2019-12-13 00:00:00 Pawan Lowe [facility] SCAN Scanning [facility] REPORT OF PROCEDURE - 2019-12-08 08:16:48 Wilmer Santiago [facility] POCT-GLUCOSE METER 2019-12-07 12:44:00 Yrn Hannah Reshad CH I [facility] POCT-GLUCOSE METER 2019-12-07 06:04:00 Dior Hannahdin Reshad CH I [facility] CBC W/PLT COUNT & AUTO 2019-12-07 05:47:00 St[facility] BASIC METABOLIC PANEL (7) 2019-12-07 05:47:00 Neyda Peraza [facility] PROTHROMBIN TIME/INR 2019-12-07 05:47:00 St[facility] MAGNESIUM 2019-12-07 05:47:00 [facility] PHOSPHORUS 2019-12-07 05:47:00 [facility] POCT-GLUCOSE METER 2019-12-06 23:52:00 Dior Hannahdin Reshad CH I [facility] HEMOGLOBIN AND HEMATOCRIT 2019-12-06 20:41:[address] [facility] POCT-GLUCOSE METER 2019-12-06 17:14:00 Dior Hannahdin Reshad CH I [facility] POCT-GLUCOSE METER 2019-12-06 12:27:00 Megan Hannahjmudin Reshad CH I [facility] POCT-GLUCOSE METER 2019-12-06 05:56:00 Megan Hannahjmudin Reshad CH I [facility] CBC W/PLT COUNT & AUTO 2019-12-06 05:23:00 [facility] BASIC METABOLIC PANEL (7) 2019-12-06 05:22:00 Stu Neyda [facility] PROTHROMBIN TIME/INR 2019-12-06 05:22:00 [facility] MAGNESIUM 2019-12-06 05:22:00 [facility] PHOSPHORUS 2019-12-06 05:22:00 [facility] POCT-GLUCOSE METER 2019-12-05 23:28:00 Yrn Hannah [facility] H. PYLORI ANTIGEN, STOOL 2019-12-05 19:28:00 [facility] HEMOGLOBIN AND HEMATOCRIT 2019-12-05 19:26:00 Wilmer Santiago [facility] LIPASE 2019-12-05 19:25:00 Lou Benavides [facility] US THORACENTESIS 2019-12-05 18:00:00 Lou Benavides [facility] XR CHEST 1 VIEW 2019-12-05 17:59:00 [facility] - PORTABLE/BEDSIDE [facility] GLUCOSE PLEURAL FLUID 2019-12-05 17:55:00 Lou Benavides [facility] PROTEIN, TOTAL, PLEURAL 2019-12-05 17:55:00 Lou Benavides [facility] BODY FLUID CELL COUNT WITH 2019-12-05 17:54:00 Lou Benavides [facility] BODY FLUID CULTURE + GRAM 2019-12-05 17:54:00 Lou Benavides [facility] LACTATE DEHYDROGENASE 2019-12-05 17:36:00 Yrn Hannah [facility] (LD), PLEURAL FLUID Medical [facility] er AMYLASE, BODY FLUID 2019-12-05 17:36:00 Yrn Hannah [facility] POCT-GLUCOSE METER 2019-12-05 11:42:00 Yrn Hannah [facility] POCT-GLUCOSE METER 2019-12-05 05:25:00 [facility] CBC W/PLT COUNT & AUTO 2019-12-05 05:18:00 St[facility] BASIC METABOLIC PANEL (7) 2019-12-05 05:18:00 Stu [facility] PROTHROMBIN TIME/INR 2019-12-05 05:18:00 [facility] MAGNESIUM 2019-12-05 05:18:00 [facility] PHOSPHORUS 2019-12-05 05:18:00 [facility] POCT-GLUCOSE METER 2019-12-04 17:48:00 Todd [facility] CT ABDOMEN/PELVIS WITH IV 2019-12-04 13:15:00 Noelle Waters [facility] HEMOGLOBIN AND HEMATOCRIT 2019-12-04 12:36:00 Lucille Belcher [facility] CBC (HEMOGRAM ONLY) 2019-12-04 12:36:00 Noelle Waters [facility] POCT-GLUCOSE METER 2019-12-04 11:54:00 Todd [facility] POCT-GLUCOSE METER 2019-12-04 05:43:00 Todd [facility] CBC W/PLT COUNT & AUTO 2019-12-04 04:23:00 [facility] BASIC METABOLIC PANEL (7) 2019-12-04 04:23:00 Stu [facility] PROTHROMBIN TIME/INR 2019-12-04 04:23:00 Stu [facility] HEMOGLOBIN AND HEMATOCRIT 2019-12-04 00:17:00 Lucille Belcher [facility] PREPARE LEUKO-REDUCED RBC 2019-12-03 23:54:[address] [facility] POCT-GLUCOSE METER 2019-12-03 [facility] 2019-12-03 18:23:00 Lucille Belcher [facility] POCT-GLUCOSE METER 2019-12-03 17:35:00 Todd [facility] UPPER ENDOSCOPY,SUBMUCOSAL 2019-12-03 15:42:00 Wilmer Santiago [facility] POCT-GLUCOSE METER 2019-12-03 11:46:00 [facility] HEMOGLOBIN AND HEMATOCRIT 2019-12-03 11:40:00 Lucille Belcher [facility] POCT-GLUCOSE METER 2019-12-03 06:09:00 [facility] W/PLT COUNT & AUTO 2019-12-03 04:16:00 [facility] BASIC METABOLIC PANEL (7) 2019-12-03 04:16:00 Stu [facility] PROTHROMBIN TIME/INR 2019-12-03 04:16:00 Stu [facility] HEMOGLOBIN AND HEMATOCRIT 2019-12-03 00:58:[address] [facility] TRANSFUSE LEUKO-REDUCED 2019-12-02 23:36:31 Vaibhav Bob [facility] RED BLOOD CELLS [facility] POCT-GLUCOSE METER 2019-12-02 23:26:00 Brooks [facility] US ABDOMINAL WITH DOPPLER 2019-12-02 20:20:00 Noelle Waters [facility] TYPE AND SCREEN, AUTOMATED 2019-12-02 19:55:00 Vaibhav Bob [facility] HEMOGLOBIN AND HEMATOCRIT 2019-12-02 18:17:00 Lucille Belcher [facility] POCT-GLUCOSE METER 2019-12-02 17:23:00 Todd [facility] POCT-GLUCOSE METER 2019-12-02 12:20:00 [facility] HEMOGLOBIN AND HEMATOCRIT 2019-12-02 12:17:00 Lucille Belcher [facility] SARS-COV2/RT-PCR ([facility] & 2019-12-02 08:35:00 Noelle Watersfawad [facility] CBC W/PLT COUNT & AUTO 2019-12-02 05:40:00 [facility] BASIC METABOLIC PANEL (7) 2019-12-02 05:40:00 [facility] PROTHROMBIN TIME/INR 2019-12-02 05:40:00 [facility] CBC W/PLT COUNT & AUTO 2019-12-01 23:15:[address] [facility] BASIC METABOLIC PANEL (7) 2019-12-01 23:15:00 [facility] PROTHROMBIN TIME/INR 2019-12-01 23:15:00 [facility] HEPATIC FUNCTION PANEL 2019-12-01 23:15:00 [facility] LIPASE 2019-12-01 23:15:00 Ye [facility] RHYTHM STRIP - SCAN 2019-10-28 12:11:28 Pawan Lowe [facility] POCT-GLUCOSE METER 2019-10-24 08:37:00 [facility] BASIC METABOLIC PANEL (7) 2019-10-24 06:13:00 Erin [facility] MAGNESIUM 2019-10-24 06:13:00 Lexie [facility] PHOSPHORUS 2019-10-24 06:13:00 [facility] 2019-10-24 06:13:00 [facility] CBC (HEMOGRAM ONLY) 2019-10-24 06:13:00 Fabiola Le [facility] POCT-GLUCOSE METER 2019-10-23 21:11:00 [facility] POCT-GLUCOSE METER 2019-10-23 16:27:00 [facility] POCT-GLUCOSE METER 2019-10-23 11:46:00 [facility] POCT-GLUCOSE METER 2019-10-23 07:45:00 [facility] BASIC METABOLIC PANEL (7) 2019-10-23 06:34:00 Xi [facility] MAGNESIUM 2019-10-23 06:34:00 [facility] 2019-10-23 06:34:00 Erin [facility] PT/APTT 2019-10-23 06:34:00 Erin [facility] CBC (HEMOGRAM ONLY) 2019-10-23 06:34:00 Fabiola Le [facility] CBC W/PLT COUNT & AUTO 2019-10-22 22:27:00 Lexie [facility] POCT-GLUCOSE METER 2019-10-22 21:30:00 [facility] POCT-GLUCOSE METER 2019-10-22 15:36:00 [facility] POCT-GLUCOSE METER 2019-10-22 12:14:00 [facility] POCT-GLUCOSE METER 2019-10-22 06:51:00 [facility] POCT-GLUCOSE METER 2019-10-22 06:27:00 [facility] BASIC METABOLIC PANEL (7) 2019-10-22 06:24:00 Cr Owen [facility] MAGNESIUM 2019-10-22 06:24:00 [facility] 2019-10-22 06:24:00 [facility] PT/APTT 2019-10-22 06:24:00 [facility] CBC (HEMOGRAM ONLY) 2019-10-22 06:24:00 Fabiola Le [facility] POCT-GLUCOSE METER 2019-10-21 23:48:00 Negin Moore [facility] POCT-GLUCOSE METER 2019-10-21 18:40:[address] [facility] POCT-GLUCOSE METER 2019-10-21 12:29:[address] [facility] AMYLASE PERITONEAL FLUID 2019-10-21 10:19:[address] [facility] BASIC METABOLIC PANEL (7) 2019-10-21 09:59:00 [facility] MAGNESIUM 2019-10-21 09:59:00 [facility] PHOSPHORUS 2019-10-21 09:59:00 [facility] PT/APTT 2019-10-21 09:59:00 [facility] CBC (HEMOGRAM ONLY) 2019-10-21 09:59:00 Fabiola Le [facility] SARS-COV2/RT-PCR ([facility] & 2019-10-21 07:15:00 Catherine Maciel [facility] - REF LABS) [facility] POCT-GLUCOSE METER 2019-10-21 06:57:00 Sixto [facility] POCT-GLUCOSE METER 2019-10-21 06:28:[address] [facility] POCT-GLUCOSE METER 2019-10-21 05:58:00 [facility] Khannan [facility] POCT-GLUCOSE METER 2019-10-21 00:05:00 [facility] 2019-10-20 17:46:00 [facility] POCT-GLUCOSE METER 2019-10-20 11:45:00 [facility] POCT-GLUCOSE METER 2019-10-20 07:04:[address] [facility] BASIC METABOLIC PANEL (7) 2019-10-20 03:39:00 [facility] MAGNESIUM 2019-10-20 03:39:00 Erin [facility] PHOSPHORUS 2019-10-20 03:39:00 [facility] PT/APTT 2019-10-20 03:39:00 [facility] CBC (HEMOGRAM ONLY) 2019-10-20 03:39:00 Fabiola Le [facility] POCT-GLUCOSE METER 2019-10-20 00:18:[address] [facility] TRANSFUSION SERVICE REPORT 2019-10-19 18:01:34 Pawan Lowe [facility] POCT-GLUCOSE METER 2019-10-19 17:28:00 Snow Adams [facility] BASIC METABOLIC PANEL (7) 2019-10-19 16:11:00 Chelo Collins [facility] PHOSPHORUS 2019-10-19 16:11:00 MofvaChelo [facility] MAGNESIUM 2019-10-19 16:11:00 [facility] POCT-GLUCOSE METER 2019-10-19 12:30:00 Athreya, [facility] POCT-GLUCOSE METER 2019-10-19 11:56:[address] [facility] XR CHEST 1 VIEW 2019-10-19 08:05:00 Mitchell Sweeney [facility]SIDE [facility] POCT-GLUCOSE METER 2019-10-19 06:37:00 Acaciaangel [facility] BASIC METABOLIC PANEL (7) 2019-10-19 01:29:00 Erin [facility] MAGNESIUM 2019-10-19 01:29:00 Erin [facility] PHOSPHORUS 2019-10-19 01:29:00 [facility] BLOOD GAS, ARTERIAL 2019-10-19 01:29:00 [facility] PT/APTT 2019-10-19 01:29:00 [facility] CBC (HEMOGRAM ONLY) 2019-10-19 01:29:00 Chelo Collins [facility] POCT-GLUCOSE METER 2019-10-19 00:20:[address] [facility] PREPARE RBC 2019-10-18 23:55:00 Catherine Maciel [facility] PREPARE RBC 2019-10-18 23:54:00 Marc Clark [facility] CBC (HEMOGRAM ONLY) 2019-10-18 20:26:00 [facility] 2019-10-18 18:05:00 Pawan Lowe [facility] POCT-GLUCOSE METER 2019-10-18 17:16:[address] [facility] CBC (HEMOGRAM ONLY) 2019-10-18 12:20:00 Chelo Collinsomela [facility] POCT-GLUCOSE METER 2019-10-18 12:01:00 SixtoSnow [facility] BLOOD GAS, ARTERIAL 2019-10-18 05:05:00 [facility] CBC (HEMOGRAM ONLY) 2019-10-18 04:09:00 [facility] BASIC METABOLIC PANEL (7) 2019-10-18 04:09:00 Erin [facility] MAGNESIUM 2019-10-18 04:09:00 Lexie [facility] PHOSPHORUS 2019-10-18 04:09:00 [facility] PT/APTT 2019-10-18 04:09:00 [facility] XR CHEST 1 VIEW 2019-10-18 03:48:00 Mitchell Sweeney [facility]/BEDSIDE [facility] BLOOD GAS, ARTERIAL 2019-10-18 01:22:00 Issa Johnson [facility] POCT-GLUCOSE METER 2019-10-18 00:42:00 [facility] CBC (HEMOGRAM ONLY) 2019-10-17 22:18:00 [facility] BASIC METABOLIC PANEL (7) 2019-10-17 22:18:00 Erin [facility] MAGNESIUM 2019-10-17 22:18:00 Lexie [facility] PHOSPHORUS 2019-10-17 22:18:00 [facility] BLOOD GAS, ARTERIAL 2019-10-17 22:18:00 [facility] PT/APTT 2019-10-17 22:18:00 [facility] PREPARE PLASMA 2019-10-17 21:19:00 Catherine Maciel [facility] PREPARE PLATELETS 2019-10-17 21:19:00 Catherine Maciel [facility] TRANSFUSE LEUKO-REDUCED 2019-10-17 20:23:46 Nelson Grier [facility] I [facility] - RED BLOOD CELLS [facility] TRANSFUSE LEUKO-REDUCED 2019-10-17 19:57:19 Nelson Grier [facility] I [facility] - RED BLOOD CELLS [facility] RRL CRITICAL LABS 2019-10-17 19:50:15 Marc Clark [facility] (ABG,NA,K,H&H,GLUCOSE) [facility] C enter CALCIUM, IONIZED 2019-10-17 19:50:15 [facility] 2019-10-17 19:50:15 Marc Clark [facility] POTASSIUM-STAT LAB 2019-10-17 19:50:15 Marc Clark I [facility] GLUCOSE-STAT LAB 2019-10-17 19:50:15 Marc Clark [facility] HGB/HCT (H&H) - STAT LAB 2019-10-17 19:50:15 Marc Clark [facility] PROTHROMBIN TIME/INR 2019-10-17 19:38:51 [facility] APTT 2019-10-17 19:38:51 [facility] LEUKO-REDUCED 2019-10-17 19:35:30 Nelson Grier [facility] I [facility] RED BLOOD CELLS [facility] PREPARE RBC 2019-10-17 19:35:00 Catherine Maciel [facility] TRANSFUSE LEUKO-REDUCED 2019-10-17 19:21:12 Nelson Grier CH I [facility] - RED BLOOD CELLS [facility] RRL CRITICAL LABS 2019-10-17 18:51:43 Marc Clark [facility] - (ABG,NA,K,H&H,GLUCOSE) Medical C enter CALCIUM, IONIZED 2019-10-17 18:51:43 Marc Clark [facility] SODIUM NA-STAT LAB 2019-10-17 18:51:43 Marc Clark I [facility] POTASSIUM-STAT LAB 2019-10-17 18:51:43 Marc Clark I [facility] GLUCOSE-STAT LAB 2019-10-17 18:51:43 Marc Clark [facility] HGB/HCT (H&H) - STAT LAB 2019-10-17 18:51:43 Marc Clark [facility] TRANSFUSE LEUKO-REDUCED 2019-10-17 18:41:[address] [facility] RED BLOOD CELLS [facility] TYPE AND SCREEN, AUTOMATED 2019-10-17 17:32:00 Marc Clark [facility] FL FLUORO NON-SPECIFIC UP 2019-10-17 17:14:00 Marc Clark [facility] TO 1 [facility] RRL CRITICAL LABS 2019-10-17 16:59:19 Nelson Grier [facility] - (ABG,NA,K,H&H,GLUCOSE) [facility] enter SODIUM NA-STAT LAB 2019-10-17 16:59:[address] [facility] POTASSIUM-STAT LAB 2019-10-17 16:59:[address] [facility] GLUCOSE-STAT LAB 2019-10-17 16:59:19 Nelson Grier [facility] HGB/HCT (H&H) - STAT LAB 2019-10-17 16:59:19 Nelson Grier [facility] TISSUE EXAM 2019-10-17 16:26:00 Marc Clark [facility] RRL CRITICAL LABS 2019-10-17 15:20:44 Nelson Grier [facility] - (ABG,NA,K,H&H,GLUCOSE) [facility] enter SODIUM NA-STAT LAB 2019-10-17 15:20:[address] [facility] POTASSIUM-STAT LAB 2019-10-17 15:20:[address] [facility] GLUCOSE-STAT LAB 2019-10-17 15:20:44 Nelson Grier [facility] HGB/HCT (H&H) - STAT LAB 2019-10-17 15:20:44 Nelson Grier [facility] CHOLECYSTECTOMY 2019-10-17 13:39:00 Marc [facility] SPLENECTOMY 2019-10-17 13:39:00 Marc [facility] POCT-GLUCOSE METER 2019-10-17 06:21:00 Snow [facility] POCT-GLUCOSE METER 2019-10-17 01:06:00 Snow [facility] CT ABDOMEN/PELVIS WITH & 2019-10-16 10:43:00 Snow Adams [facility] - WITHOUT IV CONTRAST [facility] er REPORT OF PROCEDURE - 2019-10-15 18:42:29 Wilmer Santiago [facility] - ENDOSCOPY [facility] UPPER ENDOSCOPY,ULTRASOUND 2019-10-15 18:02:00 Wilmer Santiago [facility] POCT-GLUCOSE METER 2019-10-15 12:47:00 Snow [facility] POCT-GLUCOSE METER 2019-10-15 12:14:00 Snow [facility] POCT-GLUCOSE METER 2019-10-15 08:52:00 [facility] POCT-GLUCOSE METER 2019-10-15 08:31:00 Snow [facility] URINALYSIS W/ MICROSCOPIC 2019-10-15 08:13:[address] [facility] IGG SUBCLASS-4 ONLY 2019-10-15 05:32:00 [facility] COMPREHENSIVE METABOLIC 2019-10-15 05:32:00 Jorge Arcos In [facility] CBC (HEMOGRAM ONLY) 2019-10-15 05:32:00 Jorge Arcos In [facility] PT/APTT 2019-10-15 05:32:00 Jorge Arcos In [facility] HEPATIC FUNCTION PANEL 2019-10-14 11:59:00 [facility] BASIC METABOLIC PANEL (7) 2019-10-14 11:59:00 Maroa Ricardo [facility] XR ABDOMEN / KUB 1 VIEW 2019-10-14 09:16:00 [facility] SARS-COV2/RT-PCR ([facility] & 2019-10-14 04:48:00 JessicaCatherine Khadijah [facility] - REF LABS) [facility] BASIC METABOLIC PANEL (7) 2019-10-14 04:34:[address] [facility] HEPATIC FUNCTION PANEL 2019-10-14 04:34:00 JessicaCatherine huae CH I [facility] MAGNESIUM 2019-10-14 04:34:00 JessicaCatherine hua [facility] CBC W/PLT COUNT & AUTO 2019-10-14 04:34:00 JessicaCatherine huae CH I [facility] DIFFERENTIAL [facility] PT/APTT 2019-10-14 04:34:00 JessicaCatherine hua [facility] IRON, TIBC, % SAT. 2019-10-14 04:34:00 JessicaCatherine hua Khadijah [facility] - (WITHOUT FERRITIN) [facility] LIPASE 2019-10-14 04:34:00 Maroa [facility] TRIGLYCERIDES 2019-10-14 04:34:00 Ricardo Rainey [facility] SARS-COV2/RT-PCR ([facility] & 2019-08-26 19:33:00 [facility] REF LABS) [facility] Plan of Care Planned Activity Planned Date Details Comments Source Future Scheduled 2020-02-06 DEPRESSION SCREENING [facility] - Test 00:00:00 (12+) [code = [facility] Center DEPRESSION SCREENING (12+)] Future Scheduled 2019-12-19 PNEUMOCOCCAL VACCINE [facility] - Test 00:00:00 0-64 YRS (1 of 1 - Medical C enter PPSV23) [code = PNEUMOCOCCAL VACCINE 0-64 YRS (1 of 1 - PPSV23)] Future Scheduled 2008-01-25 DTAP/TDAP/TD VACCINES I [facility] - Test 00:00:00 (1 - Tdap) [code = Medical C enter DTAP/TDAP/TD VACCINES (1 - Tdap)] Future Scheduled 2007 HEPATITIS C SCREENING [facility] - Test 00:00:00 [code = HEPATITIS C [facility] SCREENING] Encounters Start End Encounter Admission Attending Care Care Encounter Source Date/Time Date/Time Type Type Clinicians Facility Department ID 2019-10-14 Outpatient [facility] [id number] MH HH 12:19:08 2019-09-02 Inpatient [facility] [id number] H H 05:03:00 2019-08-28 Inpatient [facility] [id number] MHS W 00:57:00 2019-08-28 2019-08-28 Outpatient [facility] [id number] 802 00:57:00 00:57:00 Carlos Larson 2019-08-28 2019-08-28 Outpatient [facility] [id number] 802 00:57:00 00:57:00 Carlos Larson Results Test Description Test Time Test Comments Results Result Comments Source Comprehensive metabolic panel 2020-03-17 06:24:00 Test Item Value Reference Range Interpretation Comme nts Protein, Total (test 4.6 See_Comment L [Autom ated message] The code = 2885-2) system which generated this result tra nsmitted reference range : 6.0 - 8.3 gm/dL. The reference range was not u sed to interpret this result as normal/abnormal . Albumin (test code = 1.9 g/dL 3.5-5 L 39294-8) Alkaline Phosphatase 239 U/L 40-150 H (test code = 6768-6) Total Bilirubin (test 0.3 mg/dL 0.2-1.2 code = 1975-2) Sodium (test code = 144 meq/L 923-631 9543-2) Potassium (test code = 3.8 meq/L 3.5-5.1 2823-3) Chloride (test code = 111 meq/L 98-107 H 2075-0) CO2 (test code = 8-9) 26 meq/L 22-29 BUN (test code = 3094-0) 8 mg/dL 7-21 Creatinine (test code = 0.51 mg/dL 0.57-1.25 L 2160-0) Glucose (test code = 62 mg/dL 70-105 L 2345-7) Calcium (test code = 7.4 mg/dL 8.4-10.2 L 52475-9) AST (test code = 1920-8) 27 U/L 5-34 ALT (test code = 1742-6) 11 U/L 6-55 EGFR (test code = 190 mL/min/1.73 [place] [address]-1) ACCURATE CRE ATININE CLEARANCE IN MS EDICTING GLOMERULAR FILT RATION RATE. ESTIMATED GFR IS NOT APPLICABLE FOR DIALYSIS PATIEN TS. ABAD (test code = ABAD) [facility] ID - EDASI Lab Interpretation (test Abnormal code = 21564-9) [facility] [id number] 06:24:00 Test Item Value Reference Range Interpretation Comments TOTAL PROTEIN 4.6 gm/dL 6.0-8.3 L (BEAKER) (test code = 770) ALBUMIN (BEAKER) 1.9 g/dL 3.5-5.0 L (test code = 1145) ALKALINE PHOSPHATASE 239 U/L 40-150 H (BEAKER) (test code = 346) BILIRUBIN TOTAL 0.3 mg/dL 0.2-1.2 (BEAKER) (test code = 377) SODIUM (BEAKER) (test 144 meq/L 136-145 code = 381) POTASSIUM (BEAKER) 3.8 meq/L 3.5-5.1 (test code = 379) CHLORIDE (BEAKER) 111 meq/L 98-107 H (test code = 382) CO2 (BEAKER) (test 26 meq/L 22-29 code = 355) BLOOD UREA NITROGEN 8 mg/dL 7-21 (BEAKER) (test code = 354) CREATININE (BEAKER) 0.51 mg/dL 0.57-1.25 L (test code = 358) GLUCOSE RANDOM 62 mg/dL 70-105 L (BEAKER) (test code = 652) CALCIUM (BEAKER) 7.4 mg/dL 8.4-10.2 L (test code = 697) AST (SGOT) (BEAKER) 27 U/L 5-34 (test code = 353) ALT (SGPT) (BEAKER) 11 U/L 6-55 (test code = 347) EGFR (BEAKER) (test 190 ESTIMATE D GFR IS code = 1092) mL/min/1.73 sq NOT ACCURA TE m CREATININE CLEARANCE IN PREDICTING GLOMERULAR FILTRATION RATE . ESTIMATED GFR I S NOT APPLICABLE FOR DIALYSIS PATIEN TS. [facility] ID - EDASICBC with platelet count + automated [id number] 06:11:00 Test Item Value Reference Range Interpretation Comments WBC (test code = 6690-2) 8.6 See_Comment [A utomated message] The system [facility] generated this result transmitted ref erence range: 3.5 - 10 .5 K/L. The refe rence range was not u sed to interpret this result as normal/abnor mal. RBC (test code = 789-8) 3.31 See_Comment L [Au tomated message] The system [facility] generated this result transmitted ref erence range: 4.63 - 6 .08 M/L. The refe rence range was not u sed to interpret this result as normal/abnor mal. MCHC (test code = 786-4) 32.6 See_Comment L [A utomated message] The system [facility] generated this result transmitted ref erence range: 32.3 - 3 6.5 GM/DL. The refe rence range was not u sed to interpret this result as normal/abnor mal. Hematocrit (test code = 29.1 % 40.1-51 L 4544-3) MCV (test code = 787-2) 87.9 fL 79-92.2 MCH (test code = 785-6) 28.7 pg 25.7-32.2 RDW (test code = 788-0) 19.7 % 11.6-14.4 H Platelets (test code = 672 See_Comment H [Aut omated message] 777-3) The system [facility] generated this result transmitted ref erence range: 150 - 45 0 K/CU MM. The referen ce range was not u sed to interpret this result as normal/abnor mal. MPV (test code = 10.1 fL 9.4-12.4 33139-1) nRBC (test code = 413) 0 See_Comment [Aut omated message] The system [facility] generated this result transmitted ref erence range: 0 - 0 /1 00 WBC. The refere nce range was not u sed to interpret this result as normal/abnor mal. % Neutros (test code = 60 % 429) % Lymphs (test code = 21 % 430) % Monos (test code = 12 % 431) % Eos (test code = 432) 6 % % Baso (test code = 437) 0 % # Neutros (test code = 5.20 See_Comment [Aut omated message] 670) The system [facility] generated this result transmitted ref erence range: 1.78 - 5 .38 K/L. The refe rence range was not u sed to interpret this result as normal/abnor mal. # Lymphs (test code = 1.85 See_Comment [Auto mated message] 414) The system [facility] generated this result transmitted ref erence range: 1.32 - 3 .57 K/L. The refe rence range was not u sed to interpret this result as normal/abnor mal. # Monos (test code = 1.05 See_Comment H [Autom ated message] 415) The system [facility] generated this result transmitted ref erence range: 0.30 - 0 .82 K/L. The refe rence range was not u sed to interpret this result as normal/abnor mal. # Eos (test code = 416) 0.48 See_Comment [Au tomated message] The system [facility] generated this result transmitted ref erence range: 0.04 - 0 .54 K/L. The refe rence range was not u sed to interpret this result as normal/abnor mal. # Baso (test code = 417) 0.03 See_Comment [A utomated message] The system [facility] generated this result transmitted ref erence range: 0.01 - 0 .08 K/L. The refe rence range was not u sed to interpret this result as normal/abnor mal. Immature 0 % 0-1 Granulocytes-Relative (test code = 2801) Lab Interpretation (test Abnormal code = 83350-1) [facility] W/PLT COUNT & AUTO [id number] 06:11:00 Test Item Value Reference Range Interpretation Comments WHITE BLOOD CELL COUNT (BEAKER) 8.6 K/ L 3.5-10.5 (test code = 775) RED BLOOD CELL COUNT (BEAKER) 3.31 M/ L 4.63-6.08 L (test code = 761) HEMOGLOBIN (BEAKER) (test code = 9.5 GM/DL 13.7-17.5 L 410) HEMATOCRIT (BEAKER) (test code = 29.1 % 40.1-51.0 L 411) MEAN CORPUSCULAR VOLUME (BEAKER) 87.9 fL 79.0-92.2 (test code = 753) MEAN CORPUSCULAR HEMOGLOBIN 28.7 pg 25.7-32.2 (BEAKER) (test code = 751) MEAN CORPUSCULAR HEMOGLOBIN CONC 32.6 GM/DL 32.3-36.5 (BEAKER) (test code = 752) RED CELL DISTRIBUTION WIDTH 19.7 % 11.6-14.4 H (BEAKER) (test code = 412) PLATELET COUNT (BEAKER) (test 672 K/CU MM 150-450 H code = 756) MEAN PLATELET VOLUME (BEAKER) 10.1 fL 9.4-12.4 (test code = 754) NUCLEATED RED BLOOD CELLS 0 /100 WBC 0-0 (BEAKER) (test code = 413) NEUTROPHILS RELATIVE PERCENT 60 % (BEAKER) (test code = 429) LYMPHOCYTES RELATIVE PERCENT 21 % (BEAKER) (test code = 430) MONOCYTES RELATIVE PERCENT 12 % (BEAKER) (test code = 431) EOSINOPHILS RELATIVE PERCENT 6 % (BEAKER) (test code = 432) BASOPHILS RELATIVE PERCENT 0 % (BEAKER) (test code = 437) NEUTROPHILS ABSOLUTE COUNT 5.20 K/ L 1.78-5.38 (BEAKER) (test code = 670) LYMPHOCYTES ABSOLUTE COUNT 1.85 K/ L 1.32-3.57 (BEAKER) (test code = 414) MONOCYTES ABSOLUTE COUNT (BEAKER) 1.05 K/ L 0.30-0.82 H (test code = 415) EOSINOPHILS ABSOLUTE COUNT 0.48 K/ L 0.04-0.54 (BEAKER) (test code = 416) BASOPHILS ABSOLUTE COUNT (BEAKER) 0.03 K/ L 0.01-0.08 (test code = 417) IMMATURE GRANULOCYTES-RELATIVE 0 % 0-1 PERCENT (BEAKER) (test code = 2801) Blood Culture - Routine (Left Venipuncture)2020-01-10 06:00:00 Test Item Value Reference Range Interpretation Comments Result (test code = No growth in 5 days 6463-4) [id number] 06:00:00 Test Item Value Reference Range Interpretation Comments CULTURE (BEAKER) (test No growth in 5 days code = 1095) BLOOD [id number] 06:00:00 Test Item Value Reference Range Interpretation Comments CULTURE (BEAKER) (test No growth in 5 days code = 1095) COMPREHENSIVE METABOLIC [id number] 04:57:00 Test Item Value Reference Range Interpretation Comments TOTAL PROTEIN 4.9 gm/dL 6.0-8.3 L (BEAKER) (test code = 770) ALBUMIN (BEAKER) 1.8 g/dL 3.5-5.0 L (test code = 1145) ALKALINE PHOSPHATASE 105 U/L 40-150 (BEAKER) (test code = 346) BILIRUBIN TOTAL 0.2 mg/dL 0.2-1.2 (BEAKER) (test code = 377) SODIUM (BEAKER) (test 138 meq/L 136-145 code = 381) POTASSIUM (BEAKER) 3.6 meq/L 3.5-5.1 (test code = 379) CHLORIDE (BEAKER) 104 meq/L 98-107 (test code = 382) CO2 (BEAKER) (test 30 meq/L 22-29 H code = 355) BLOOD UREA NITROGEN 2 mg/dL 7-21 L (BEAKER) (test code = 354) CREATININE (BEAKER) 0.50 mg/dL 0.57-1.25 L (test code = 358) GLUCOSE RANDOM 72 mg/dL 70-105 (BEAKER) (test code = 652) CALCIUM (BEAKER) 7.4 mg/dL 8.4-10.2 L (test code = 697) AST (SGOT) (BEAKER) 6 U/L 5-34 (test code = 353) ALT (SGPT) (BEAKER) < U/L 6-55 L (test code = 347) EGFR (BEAKER) (test 195 ESTIMATE D GFR IS code = 1092) mL/min/1.73 sq NOT ACCURA TE m CREATININE CLEARANCE IN PREDICTING GLOMERULAR FILTRATION RATE . ESTIMATED GFR I S NOT APPLICABLE FOR DIALYSIS PATIEN TS. [facility] ID - BSCBC W/PLT COUNT & AUTO [id number] 04:57:00 Test Item Value Reference Range Interpretation Comments WHITE BLOOD CELL COUNT (BEAKER) 6.7 K/ L 3.5-10.5 (test code = 775) RED BLOOD CELL COUNT (BEAKER) 3.09 M/ L 4.63-6.08 L (test code = 761) HEMOGLOBIN (BEAKER) (test code = 9.1 GM/DL 13.7-17.5 L 410) HEMATOCRIT (BEAKER) (test code = 28.5 % 40.1-51.0 L 411) MEAN CORPUSCULAR VOLUME (BEAKER) 92.2 fL 79.0-92.2 (test code = 753) MEAN CORPUSCULAR HEMOGLOBIN 29.4 pg 25.7-32.2 (BEAKER) (test code = 751) MEAN CORPUSCULAR HEMOGLOBIN CONC 31.9 GM/DL 32.3-36.5 L (BEAKER) (test code = 752) RED CELL DISTRIBUTION WIDTH 16.8 % 11.6-14.4 H (BEAKER) (test code = 412) PLATELET COUNT (BEAKER) (test 502 K/CU MM 150-450 H code = 756) MEAN PLATELET VOLUME (BEAKER) 10.1 fL 9.4-12.4 (test code = 754) NUCLEATED RED BLOOD CELLS 0 /100 WBC 0-0 (BEAKER) (test code = 413) NEUTROPHILS RELATIVE PERCENT 50 % (BEAKER) (test code = 429) LYMPHOCYTES RELATIVE PERCENT 25 % (BEAKER) (test code = 430) MONOCYTES RELATIVE PERCENT 12 % (BEAKER) (test code = 431) EOSINOPHILS RELATIVE PERCENT 12 % (BEAKER) (test code = 432) BASOPHILS RELATIVE PERCENT 1 % (BEAKER) (test code = 437) NEUTROPHILS ABSOLUTE COUNT 3.35 K/ L 1.78-5.38 (BEAKER) (test code = 670) LYMPHOCYTES ABSOLUTE COUNT 1.64 K/ L 1.32-3.57 (BEAKER) (test code = 414) MONOCYTES ABSOLUTE COUNT (BEAKER) 0.77 K/ L 0.30-0.82 (test code = 415) EOSINOPHILS ABSOLUTE COUNT 0.80 K/ L 0.04-0.54 H (BEAKER) (test code = 416) BASOPHILS ABSOLUTE COUNT (BEAKER) 0.08 K/ L 0.01-0.08 (test code = 417) IMMATURE GRANULOCYTES-RELATIVE 0 % 0-1 PERCENT (BEAKER) (test code = 2801) [id number] 04:56:00 Test Item Value Reference Range Interpretation Comments Magnesium (test code = 1.5 mg/dL 1.6-2.6 L 41251-1) ABAD (test code = ABAD) [facility] ID - BS Lab Interpretation (test Abnormal code = 25152-1) [facility] 04:56[facility]00 Test Item Value Reference Range Interpretation Comments MAGNESIUM (BEAKER) (test code = 1.5 mg/dL 1.6-2.6 L 627) [facility] ID - BSIron, TIBC, % sat. (without ferritin)2020-01-09 04:53:00 Test Item Value Reference Range Interpretation Comments Iron (test code = 2498-4) 120.0 ug/dL 40-160 TIBC (test code = 2500-7) 114 ug/dL 250-450 L Iron % Saturation (test 105 % 20-55 H code = 2502-3) ABAD (test code = ABAD) [facility] ID - ADMIN Lab Interpretation (test Abnormal code = 88865-7) [facility], % SAT. (WITHOUT FERRITIN)2020-01-09 04:53:00 Test Item Value Reference Range Interpretation Comments IRON (BEAKER) (test code = 547) 120.0 ug/dL 40.0-160.0 TOTAL IRON BINDING CAPACITY 114 ug/dL 250-450 L (BEAKER) (test code = 769) IRON % SATURATION (2) (BEAKER) 105 % 20-55 H (test code = 2590) [facility] ID - [facility] Metabolic [id number] 05:56:00 Test Item Value Reference Range Interpretation Comments Sodium (test code = 141 meq/L 900-508 2937-2) Potassium (test code = 3.6 meq/L 3.5-5.1 2823-3) Chloride (test code = 105 meq/L 98-107 2075-0) CO2 (test code = 29 meq/L 22-29 2028-9) BUN (test code = 3 mg/dL 7-21 L 3094-0) Creatinine (test code 0.48 mg/dL 0.57-1.25 L = 2160-0) Glucose (test code = 68 mg/dL 70-105 L 2345-7) Calcium (test code = 7.5 mg/dL 8.4-10.2 L 72799-2) EGFR (test code = 205 mL/min/1.73 [place] [address]-5) NOT ACCURATE CREATININE CLEARANCE IN PREDICTING GLOMERULAR FILTRATION RATE . ESTIMATED GFR I S NOT APPLICABLE FOR DIALYSIS PATIENTS. ABAD (test code = ABAD) [facility] ID - SOTERO M Lab Interpretation Abnormal (test code = 65419-3) [facility] [id number] 05:56:00 Test Item Value Reference Range Interpretation Comments SODIUM (BEAKER) 141 meq/L 136-145 (test code = 381) POTASSIUM (BEAKER) 3.6 meq/L 3.5-5.1 (test code = 379) CHLORIDE (BEAKER) 105 meq/L 98-107 (test code = 382) CO2 (BEAKER) (test 29 meq/L 22-29 code = 355) BLOOD UREA NITROGEN 3 mg/dL 7-21 L (BEAKER) (test code = 354) CREATININE (BEAKER) 0.48 mg/dL 0.57-1.25 L (test code = 358) GLUCOSE RANDOM 68 mg/dL 70-105 L (BEAKER) (test code = 652) CALCIUM (BEAKER) 7.5 mg/dL 8.4-10.2 L (test code = 697) EGFR (BEAKER) (test 205 mL/min/1.73 ESTIM ATED GFR IS code = 1092) sq m NOT ACCURATE CREATININE CLEARANCE IN PREDICTING GLOMERULAR FILTRATION RATE . ESTIMATED GFR I S NOT APPLICABLE FOR DIALYSIS PATIEN TS. [facility] ID - SOTERO MBASIC METABOLIC [id number] 12:36:00 Test Item Value Reference Range Interpretation Comments SODIUM (BEAKER) 136 meq/L 136-145 (test code = 381) POTASSIUM (BEAKER) 3.0 meq/L 3.5-5.1 L (test code = 379) CHLORIDE (BEAKER) 102 meq/L 98-107 (test code = 382) CO2 (BEAKER) (test 28 meq/L 22-29 code = 355) BLOOD UREA NITROGEN 3 mg/dL 7-21 L (BEAKER) (test code = 354) CREATININE (BEAKER) 0.55 mg/dL 0.57-1.25 L (test code = 358) GLUCOSE RANDOM 115 mg/dL 70-105 H (BEAKER) (test code = 652) CALCIUM (BEAKER) 7.2 mg/dL 8.4-10.2 L (test code = 697) EGFR (BEAKER) (test 175 mL/min/1.73 ESTIM ATED GFR IS code = 1092) sq m NOT ACCURATE CREATININE CLEARANCE IN PREDICTING GLOMERULAR FILTRATION RATE . ESTIMATED GFR I S NOT APPLICABLE FOR DIALYSIS PATIEN TS. [facility] ID - AAHAMIDUrinalysis w/Microscopic + Reflex to [id number] 12:08:00 Test Item Value Reference Range Interpretation Comments Color, UA (test code Light Yellow = 5778-6) Clarity, UA (test Clear code = 5767-9) Specific Merrick, UA 1.009 1.001-1.035 (test code = 5811-5) pH, UA (test code = 7.5 5.0-8.0 5803-2) Protein, UA (test Negative Negative code = 17660-5) Glucose, UA (test Negative Negative code = 365) Ketones, UA (test Trace Negative A code = 2514-8) Bilirubin, UA (test Negative Negative code = 68128-1) Blood, UA (test code Negative Negative = 67038-8) Nitrite, UA (test Negative Negative code = 5802-4) Leukocytes, UA (test Negative Negative code = 5799-2) Urobilinogen, UA 0.2 mg/dL 0.2-1 (test code = 12303-9) RBC, UA (test code = <1 See_Comment [Autom ated 75688-7) message] The system which generated this result transmit leti reference range : /HPF. The reference range was not used to interpret this result as normal/abnormal . WBC, UA (test code = <1 See_Comment [Autom ated 5821-4) message] The system which generated this result transmit leti reference range : /HPF. The reference range was not used to interpret this result as normal/abnormal . Specimen Source (test code = 2795) ABAD (test code = ABAD) [facility] ID - [auto][facility] ID - tech Lab Interpretation Abnormal (test code = 03976-5) [facility] UR[facility] [id number] 12:08:00 Test Item Value Reference Range Interpretation Comments COLOR (BEAKER) (test code = 470) Light Yellow CLARITY (BEAKER) (test code = Clear 469) SPECIFIC GRAVITY UA (BEAKER) 1.009 1.001-1.035 (test code = 468) PH UA (BEAKER) (test code = 467) 7.5 5.0-8.0 PROTEIN UA (BEAKER) (test code = Negative Negative 464) GLUCOSE UA (BEAKER) (test code = Negative Negative 365) KETONES UA (BEAKER) (test code = Trace Negative A 371) BILIRUBIN UA (BEAKER) (test code Negative Negative = 462) BLOOD UA (BEAKER) (test code = Negative Negative 461) NITRITE UA (BEAKER) (test code = Negative Negative 465) LEUKOCYTE ESTERASE UA (BEAKER) Negative Negative (test code = 466) UROBILINOGEN UA (BEAKER) (test 0.2 mg/dL 0.2-1.0 code = 463) RBC UA (BEAKER) (test code = < /HPF 519) WBC UA (BEAKER) (test code = < /HPF 520) SOURCE(BEAKER) (test code = 2795) [facility] ID - [auto][facility] ID - techCBC W/PLT COUNT & AUTO DIFFERENTIAL 2020-01-07 11:59:00 Test Item Value Reference Range Interpretation Comments WHITE BLOOD CELL COUNT (BEAKER) 10.5 K/ L 3.5-10.5 (test code = 775) RED BLOOD CELL COUNT (BEAKER) 2.83 M/ L 4.63-6.08 L (test code = 761) HEMOGLOBIN (BEAKER) (test code = 8.4 GM/DL 13.7-17.5 L 410) HEMATOCRIT (BEAKER) (test code = 26.9 % 40.1-51.0 L 411) MEAN CORPUSCULAR VOLUME (BEAKER) 95.1 fL 79.0-92.2 H (test code = 753) MEAN CORPUSCULAR HEMOGLOBIN 29.7 pg 25.7-32.2 (BEAKER) (test code = 751) MEAN CORPUSCULAR HEMOGLOBIN CONC 31.2 GM/DL 32.3-36.5 L (BEAKER) (test code = 752) RED CELL DISTRIBUTION WIDTH 16.8 % 11.6-14.4 H (BEAKER) (test code = 412) PLATELET COUNT (BEAKER) (test 447 K/CU MM 150-450 code = 756) MEAN PLATELET VOLUME (BEAKER) 10.6 fL 9.4-12.4 (test code = 754) NUCLEATED RED BLOOD CELLS 0 /100 WBC 0-0 (BEAKER) (test code = 413) NEUTROPHILS RELATIVE PERCENT 77 % (BEAKER) (test code = 429) LYMPHOCYTES RELATIVE PERCENT 7 % (BEAKER) (test code = 430) MONOCYTES RELATIVE PERCENT 12 % (BEAKER) (test code = 431) EOSINOPHILS RELATIVE PERCENT 3 % (BEAKER) (test code = 432) BASOPHILS RELATIVE PERCENT 0 % (BEAKER) (test code = 437) NEUTROPHILS ABSOLUTE COUNT 8.11 K/ L 1.78-5.38 H (BEAKER) (test code = 670) LYMPHOCYTES ABSOLUTE COUNT 0.71 K/ L 1.32-3.57 L (BEAKER) (test code = 414) MONOCYTES ABSOLUTE COUNT (BEAKER) 1.25 K/ L 0.30-0.82 H (test code = 415) EOSINOPHILS ABSOLUTE COUNT 0.34 K/ L 0.04-0.54 (BEAKER) (test code = 416) BASOPHILS ABSOLUTE COUNT (BEAKER) 0.04 K/ L 0.01-0.08 (test code = 417) IMMATURE GRANULOCYTES-RELATIVE 0 % 0-1 PERCENT (BEAKER) (test code = 2801) SARS-CoV2/RT-PCR (Asymptomatic ONLY)2020-01-06 22:07:00 Test Item Value Reference Range Interpretation Comments SARS-COV2/RT-PCR Negative Not Detected, (test code = Negative, See 99811-8) external report for linked test SARS-COV-2 [facility] (test code = 82327-0) ABAD (test code = Negative result for [...] the Act. Testing was performed using the Audioscribe SARS-CoV-2 assay. Fact Sheet for Healthcare Providers:https://www.[facility].najera/vivien/RT_SA EN-XzU-1_ZWW_Llsb_Wjsub_ 51-429152.pdf Fact Sheet for Healthcare Patients:https://www.[facility].najera/vivien/RT_SAR M-NaM-8_Mnfuxaf_Vwsb_Jrb et_EN_51-586704Y2.pdf Performing Laboratory:[facility] [place] [address] [facility])2020-01-06 22:07:00 Test Item Value Reference Range Interpretation Comments SARS-COV2/RT-PCR (test Negative Not Detected, Negative, code = 6685633) See external report for linked test SARS-COV-[address] [facility] (test code = 2302277) Negative result for this test determines that [...] the Najera SARS-CoV-2 assay.Fact Sheet for Healthcare Providers:https://www.molecular.najera/vivien/ ZS_ENVT-ZsP-9_CGQ_Klyw_Zewav_17-381490.pdfFact Sheet for Healthcare Patients:https://www.[employer] micaela/vivien/JM_VLHQ-QpV-2_Urxthzq_Bipm_Lagzx_RW_14-869066C5.pdfPerforming Laboratory:[facility] [place] [address] Manual [id number] 16:23:00 Test Item Value Reference Range Interpretation Comments % Neutros (test code = 92 % 2816) % Lymphs (test code = 2 % 2817) % Monos (test code = 1 % 2818) % Eos (test code = 2819) 1 % % Bands (test code = 4 % 0-10 2826) # Neutros (test code = 14.17 K/ul 1.78-5.38 H 2830) # Lymphs (test code = 0.31 K/ul 1.32-3.57 L 2831) # Monos (test code = 0.15 K/uL 0.3-0.82 L 2832) # Eos (test code = 2834) 0.15 K/uL 0.04-0.54 # Bands (test code = 0.62 K/uL 0-0.8 2840) Total Counted (test code 100 = 1351) Platelet Morphology (test Normal code = 486) Smudge Cells (test code = Present 1371) Polychromasia (test code 1+ few = 478) Hypochromia (test code = 1+ few 963) Anisocytosis (test code = 2+ moderate 961) Macrocytes (test code = 2+ moderate 964) Poikilocytes (test code = 1+ few 966) Target Cells (test code = 1+ few 480) Ovalocytes (test code = 1+ few 477) Tear Drop Cells (test 1+ few code = 481) Platelet Conc (test code Decreased = 3438) ABAD (test code = ABAD) [facility] ID - janae Bradley comments: Slide comments: Lab Interpretation (test Abnormal code = 65028-4) [facility](CELLAVISION MANUAL DIFF)2020-01-06 16:23:00 Test Item Value Reference Range Interpretation Comments NEUTROPHILS - REL 92 % (CELLAVISION)(BEAKER) (test code = 2816) LYMPHOCYTES - REL 2 % (CELLAVISION)(BEAKER) (test code = 2817) MONOCYTES - REL 1 % (CELLAVISION)(BEAKER) (test code = 2818) EOSINOPHILS - REL 1 % (CELLAVISION)(BEAKER) (test code = 2819) BANDS - REL (CELLAVISION)(BEAKER) 4 % 0-10 (test code = 2826) NEUTROPHILS - ABS 14.17 K/ul 1.78-5.38 H (CELLAVISION)(BEAKER) (test code = 2830) LYMPHOCYTES - ABS 0.31 K/ul 1.32-3.57 L (CELLAVISION)(BEAKER) (test code = 2831) MONOCYTES - ABS 0.15 K/uL 0.30-0.82 L (CELLAVISION)(BEAKER) (test code = 2832) EOSINOPHILS - ABS 0.15 K/uL 0.04-0.54 (CELLAVISION)(BEAKER) (test code = 2834) BANDS - ABS (CELLAVISION)(BEAKER) 0.62 K/uL 0.00-0.80 (test code = 2840) TOTAL COUNTED (BEAKER) (test code 100 = 1351) PLT MORPHOLOGY (BEAKER) (test Normal code = 486) SMUDGE CELLS (BEAKER) (test code Present = 1371) POLYCHROMATOPHILLIC RBCS(BEAKER) 1+ few (test code = 478) HYPOCHROMIA (BEAKER) (test code = 1+ few 963) ANISOCYTOSIS (BEAKER) (test code 2+ moderate = 961) MACROCYTES (BEAKER) (test code = 2+ moderate 964) POIKILOCYTES (BEAKER) (test code 1+ few = 966) TARGET CELLS (BEAKER) (test code 1+ few = 480) OVALOCYTES (BEAKER) (test code = 1+ few 477) TEAR DROP CELLS (BEAKER) (test 1+ few code = 481) PLATELET CONCENTRATION Decreased (CELLAVISION)(BEAKER) (test code = 3438) [facility] HELIO - janae Bradley comments: Slide comments:CBC W/PLT COUNT & AUTO [id number] 15:15:00 Test Item Value Reference Range Interpretation Comments WHITE BLOOD CELL COUNT (BEAKER) 15.4 K/ L 3.5-10.5 H (test code = 775) RED BLOOD CELL COUNT (BEAKER) 2.85 M/ L 4.63-6.08 L (test code = 761) HEMOGLOBIN (BEAKER) (test code = 8.5 GM/DL 13.7-17.5 L 410) HEMATOCRIT (BEAKER) (test code = 27.0 % 40.1-51.0 L 411) MEAN CORPUSCULAR VOLUME (BEAKER) 94.7 fL 79.0-92.2 H (test code = 753) MEAN CORPUSCULAR HEMOGLOBIN 29.8 pg 25.7-32.2 (BEAKER) (test code = 751) MEAN CORPUSCULAR HEMOGLOBIN CONC 31.5 GM/DL 32.3-36.5 L (BEAKER) (test code = 752) RED CELL DISTRIBUTION WIDTH 16.8 % 11.6-14.4 H (BEAKER) (test code = 412) PLATELET COUNT (BEAKER) (test 448 K/CU MM 150-450 code = 756) MEAN PLATELET VOLUME (BEAKER) 10.1 fL 9.4-12.4 (test code = 754) NUCLEATED RED BLOOD CELLS 0 /100 WBC 0-0 (BEAKER) (test code = 413) NEUTROPHILS RELATIVE PERCENT 78 % (BEAKER) (test code = 429) LYMPHOCYTES RELATIVE PERCENT 5 % (BEAKER) (test code = 430) MONOCYTES RELATIVE PERCENT 14 % (BEAKER) (test code = 431) EOSINOPHILS RELATIVE PERCENT 2 % (BEAKER) (test code = 432) BASOPHILS RELATIVE PERCENT 1 % (BEAKER) (test code = 437) NEUTROPHILS ABSOLUTE COUNT 12.11 K/ L 1.78-5.38 H (BEAKER) (test code = 670) LYMPHOCYTES ABSOLUTE COUNT 0.75 K/ L 1.32-3.57 L (BEAKER) (test code = 414) MONOCYTES ABSOLUTE COUNT (BEAKER) 2.17 K/ L 0.30-0.82 H (test code = 415) EOSINOPHILS ABSOLUTE COUNT 0.26 K/ L 0.04-0.54 (BEAKER) (test code = 416) BASOPHILS ABSOLUTE COUNT (BEAKER) 0.09 K/ L 0.01-0.08 H (test code = 417) IMMATURE GRANULOCYTES-RELATIVE 0 % 0-1 PERCENT (BEAKER) (test code = 2801) Hepatic function [id number] 11:25:00 Test Item Value Reference Range Interpretation Comments Protein, Total (test 4.8 See_Comment L [Autom ated code = 2885-2) message] The system which generated this result transmit leti reference range : 6.0 - 8.3 gm/dL . The reference range was not u sed to interpret th is result as normal/abnormal . Albumin (test code = 1.8 g/dL 3.5-5 L 56886-1) Total Bilirubin (test 0.3 mg/dL 0.2-1.2 code = 1975-2) Bilirubin, Direct 0.2 mg/dL 0.1-0.5 (test code = 1968-7) Alkaline Phosphatase 130 U/L 40-150 (test code = 6768-6) AST (test code = 7 U/L 5-34 1920-8) ALT (test code = <6 6-55 L 1742-6) ABAD (test code = ABAD) [facility] ID - SUDARSHANG Lab Interpretation Abnormal (test code = 64650-6) [facility] [id number] 11:25:00 Test Item Value Reference Range Interpretation Comments TOTAL PROTEIN (BEAKER) (test code = 4.8 gm/dL 6.0-8.3 L 770) ALBUMIN (BEAKER) (test code = 1145) 1.8 g/dL 3.5-5.0 L BILIRUBIN TOTAL (BEAKER) (test code 0.3 mg/dL 0.2-1.2 = 377) BILIRUBIN DIRECT (BEAKER) (test 0.2 mg/dL 0.1-0.5 code = 706) ALKALINE PHOSPHATASE (BEAKER) (test 130 U/L 40-150 code = 346) AST (SGOT) (BEAKER) (test code = 7 U/L 5-34 353) ALT (SGPT) (BEAKER) (test code = < U/L 6-55 L 347) [facility] ID - ROSIANGBASIC METABOLIC [id number] 11:25:00 Test Item Value Reference Range Interpretation Comments [...] 0.57-1.25 (test code = 358) GLUCOSE RANDOM 105 mg/dL 70-105 (BEAKER) (test code = 652) CALCIUM (BEAKER) 7.5 mg/dL 8.4-10.2 L (test code = 697) EGFR (BEAKER) (test 168 mL/min/1.73 ESTIM ATED GFR IS code = 1092) sq m NOT ACCURATE CREATININE CLEARANCE IN PREDICTING GLOMERULAR FILTRATION RATE . ESTIMATED GFR I S NOT APPLICABLE FOR DIALYSIS PATIEN TS. [facility] ID - ROSIANGMR, ABDOMEN, [id number] 08:42:00Unlisted Reason for Exam - Click Yes and Enter Reason Below->No [facility] [place] : 1990 Sex: MFINAL REPORT MRCP, MRI of abdomen without contrast Clinical History: Biliary obstruction suspected Technique: Multiplanar and multisequence MR images of the biliary system are obtained, with dedicated MRCP protocol and images. No intravenous contrast is administered. In addition, 3 dimensional reformatted images of the biliary system are obtained to evaluate the biliary anatomy. Comparison: December 18, 2019 Discussion: This examination is not dedicated to evaluating masses or parenchymal abnormalities of the abdominal organs. Additionally, there is susceptibility artifact arising from surgical material in gastric region, limiting evaluation of adjacent soft tissue structures. There are trace bilateral pleural effusions. No discrete liver lesion is identified on thisnoncontrast exam. There is a mild degree of biliary ductal dilatation. The extrahepatic bile duct measures up to 8 mm, and the CBD demonstrates smooth distal tapering. No filling defect is seen. Statuspost cholecystectomy. Patient is status post splenectomy. The pancreas appears atrophied. There is trace peripancreatic edema/fluid. No discrete drainable fluid collection is seen. No significant pancreatic ductal dilatation. The adrenal glands and kidneys appear unremarkable. No evidence of bowel obstruction. Trace ascites. No lymphadenopathy. Marrow signal is normal. Impression: Mild degree of biliary ductal dilatation, with smooth tapering of the distal CBD. Status post cholecystectomy and splenectomy. Pancreatic atrophy, with trace peripancreatic edema/fluid. Trace bilateral pleural effusions, trace ascites. Signed: Ramona Millerort Verified Date/Time: 01/05/2020 08:42:45 Reading Location: [facility] C0X Ortho Consult Reading Room 08:42 AMMR abdomen without IV contrast [id number] 08:42:00 Interface, External Ris In - 01/05/2020 8:44 AM CSTFINAL REPORT MRCP, MRI of abdomen without contrast Clinical History: Biliary obstruction suspected Technique: Multiplanar andmultisequence MR images of the biliary system are obtained, with dedicated MRCP protocol and images.No intravenous contrast is administered. In addition, 3 dimensional reformatted images of the biliary system are obtained to evaluate the biliary anatomy. Comparison: December 18, 2019 Discussion: This examination is not dedicated to evaluating masses or parenchymal abnormalities of the abdominal organs. Additionally, there is susceptibility artifact arising from surgical material in gastric region,limiting evaluation of adjacent soft tissue structures. There are trace bilateral pleural effusions.No discrete liver lesion is identified on this noncontrast exam. There is a mild degree of biliary ductal dilatation. The extrahepatic bile duct measures up to 8 mm, and the CBD demonstrates smooth dist al tapering. No filling defect is seen. Status post cholecystectomy. Patient is status post splenectomy. The pancreas appears atrophied. There is trace peripancreatic edema/fluid. No discrete drainablefluid collection is seen. No significant pancreatic ductal dilatation. The adrenal glands and kidneys appear unremarkable. No evidence of bowel obstruction. Trace ascites. No lymphadenopathy. Marrow signal is normal. Impression: Mild degree of biliary ductal dilatation, with smooth tapering of the distal CBD. Status post cholecystectomy and splenectomy. Pancreatic atrophy, with trace peripancreatic edema/fluid. Trace bilateral pleural effusions, trace ascites. Signed: Ramona Miller MDReport Verified Date/Time: 01/05/2020 08:42:45 Reading Location: [facility] B1 [id number] Ortho Consult Reading [facility] [id number] 07:42:00 Test Item Value Reference Range Interpretation Comments COLOR (BEAKER) (test code = 470) Light Yellow CLARITY (BEAKER) (test code = Clear 469) SPECIFIC GRAVITY UA (BEAKER) 1.008 1.001-1.035 (test code = 468) PH UA (BEAKER) (test code = 467) 5.5 5.0-8.0 PROTEIN UA (BEAKER) (test code = Negative Negative 464) GLUCOSE UA (BEAKER) (test code = Negative Negative 365) KETONES UA (BEAKER) (test code = 60 mg/dL Negative A 371) BILIRUBIN UA (BEAKER) [...] 519) WBC UA (BEAKER) (test code = 0 /HPF 520) MUCUS (BEAKER) (test code = Rare 1574) SOURCE(BEAKER) (test code = 2795) [facility] ID - [auto][facility] ID - techRAD, CHEST, 1 VIEW, NON [id number] 07:25:00Reason for exam:->fever, trying to rule out pneumonia. has history necrotizing pancreatiitsShouldthis be performed at the bedside?->Yes [facility] [place] : 1990 Sex: MFINAL REPORT RAD, CHEST, 1 VIEW, NON DEPT INDICATION: fever, trying to rule out pneumonia. has history necrotizing pancreatiits COMPARISON: December 05, 2019 FINDINGS: Portable frontal view of the chest. IMPRESSION: Support Lines: None Lungs and pleura: Diffuse bilateral interstitial thickening is unchanged No pneumothorax.Heart and mediastinum: Stable contours.Additional findings: None. Signed: Vera Fowler Verified Date/Time: 01/05/2020 07:25:44 Reading Location: [facility] Radiology Reading Room Electronically signed by: VERA FOWLER MDon 01/05/2020 07:25 AMXR chest 1 view portable / [id number] 07:25:00Interface, External Ris In - 01/05/2020 7:27 AM CSTFINAL REPORT RAD, CHEST, 1 VIEW, NON DEPT INDICATION: fever, trying to rule out pneumonia. has history necrotizing pancreatiits COMPARISON: December 05, 2019 FINDINGS: Portable frontal view of the chest. IMPRESSION: Support Lines: None Lungs and pleura: Diffuse bilateral interstitial thickening is unchanged No pneumothorax.Heart and mediastinum: Stable contours.Additional findings: None. Signed: Vera Fowler Verparker fied Date/Time: 01/05/2020 07:25:44 Reading Location: [facility] Radiology Reading Room [facility] W/PLT COUNT & AUTO [id number] 05:20:00 Test Item Value Reference Range Interpretation Comments WHITE BLOOD CELL COUNT (BEAKER) 12.8 K/ L 3.5-10.5 H (test code = 775) RED BLOOD CELL COUNT (BEAKER) 2.95 M/ L 4.63-6.08 L (test code = 761) HEMOGLOBIN (BEAKER) (test code = 9.0 GM/DL 13.7-17.5 L 410) HEMATOCRIT (BEAKER) (test code = 28.8 % 40.1-51.0 L 411) MEAN CORPUSCULAR VOLUME (BEAKER) 97.6 fL 79.0-92.2 H (test code = 753) MEAN CORPUSCULAR HEMOGLOBIN 30.5 pg 25.7-32.2 (BEAKER) (test code = 751) MEAN CORPUSCULAR HEMOGLOBIN CONC 31.3 GM/DL 32.3-36.5 L (BEAKER) (test code = 752) RED CELL DISTRIBUTION WIDTH 17.1 % 11.6-14.4 H (BEAKER) (test code = 412) PLATELET COUNT (BEAKER) (test 508 K/CU MM 150-450 H code = 756) MEAN PLATELET VOLUME (BEAKER) 10.2 fL 9.4-12.4 (test code = 754) NUCLEATED RED BLOOD CELLS 0 /100 WBC 0-0 (BEAKER) (test code = 413) NEUTROPHILS RELATIVE PERCENT 77 % (BEAKER) (test code = 429) LYMPHOCYTES RELATIVE PERCENT 10 % (BEAKER) (test code = 430) MONOCYTES RELATIVE PERCENT 9 % (BEAKER) (test code = 431) EOSINOPHILS RELATIVE PERCENT 4 % (BEAKER) (test code = 432) BASOPHILS RELATIVE PERCENT 1 % (BEAKER) (test code = 437) NEUTROPHILS ABSOLUTE COUNT 9.77 K/ L 1.78-5.38 H (BEAKER) (test code = 670) LYMPHOCYTES ABSOLUTE COUNT 1.27 K/ L 1.32-3.57 L (BEAKER) (test code = 414) MONOCYTES ABSOLUTE COUNT (BEAKER) 1.10 K/ L 0.30-0.82 H (test code = 415) EOSINOPHILS ABSOLUTE COUNT 0.44 K/ L 0.04-0.54 (BEAKER) (test code = 416) BASOPHILS ABSOLUTE COUNT (BEAKER) 0.11 K/ L 0.01-0.08 H (test code = 417) IMMATURE GRANULOCYTES-RELATIVE 1 % 0-1 PERCENT (BEAKER) (test code = 2801) COMPREHENSIVE METABOLIC [id number] 05:16:00 Test Item Value Reference Range Interpretation Comments TOTAL PROTEIN 4.7 gm/dL 6.0-8.3 L (BEAKER) (test code = 770) ALBUMIN (BEAKER) 1.8 g/dL 3.5-5.0 L (test code = 1145) ALKALINE PHOSPHATASE 152 U/L 40-150 H (BEAKER) (test code = 346) BILIRUBIN TOTAL 0.4 mg/dL 0.2-1.2 (BEAKER) (test code = 377) SODIUM (BEAKER) (test 137 meq/L 136-145 code = 381) POTASSIUM (BEAKER) 4.2 meq/L [...] (test code = 697) AST (SGOT) (BEAKER) 9 U/L 5-34 (test code = 353) ALT (SGPT) (BEAKER) 7 U/L 6-55 (test code = 347) EGFR (BEAKER) (test 195 ESTIMATE D GFR IS code = 1092) mL/min/1.73 sq NOT ACCURA TE m CREATININE CLEARANCE IN PREDICTING GLOMERULAR FILTRATION RATE . ESTIMATED GFR I S NOT APPLICABLE FOR DIALYSIS PATIEN TS. [facility] ID - EDASICOMPREHENSIVE METABOLIC [id number] 09:09:00 Test Item Value Reference Range Interpretation Comments TOTAL PROTEIN 5.2 gm/dL 6.0-8.3 L (BEAKER) (test code = 770) ALBUMIN (BEAKER) 2.1 g/dL 3.5-5.0 L (test code = 1145) ALKALINE PHOSPHATASE 193 U/L 40-150 H (BEAKER) (test code = 346) BILIRUBIN TOTAL 0.6 mg/dL 0.2-1.2 (BEAKER) (test code = 377) SODIUM (BEAKER) (test 138 meq/L 136-145 code = 381) POTASSIUM (BEAKER) 4.0 meq/L [...] (test code = 697) AST (SGOT) (BEAKER) 12 U/L 5-34 (test code = 353) ALT (SGPT) (BEAKER) 10 U/L 6-55 (test code = 347) EGFR (BEAKER) (test 187 ESTIMATE D GFR IS code = 1092) mL/min/1.73 sq NOT ACCURA TE m CREATININE CLEARANCE IN PREDICTING GLOMERULAR FILTRATION RATE . ESTIMATED GFR I S NOT APPLICABLE FOR DIALYSIS PATIEN TS. [facility] ID - SOTERO [id number] 09:07:00 Test Item Value Reference Range Interpretation Comments Lipase (test code = 145 U/L 8-78 H 3040-3) ABAD (test code = ABAD) [facility] ID - SOTERO M Lab Interpretation (test Abnormal code = 12813-5) [facility] 09:07:00 Test Item Value Reference Range Interpretation Comments LIPASE (BEAKER) (test code = 749) 145 U/L 8-78 H [facility] ID - SOTERO MProthrombin time/[id number] 08:57:00 Test Item Value Reference Interpretation Comments Range Protime (test code = 15.6 See_Comment H [Autom ated 5902-2) message] The system which generated this result transmitted reference range : 11.9 - 14.2 seconds. The reference range was not used to interpret this result as normal/abnormal . INR (test code = 1.29 See_Comment [Automated 6301-6) message] The system which generated this result transmitted reference range : <=5.90. The reference range was not used to interpret this result as normal/abnormal . ABAD (test code = Effective 07/03/2018: ABAD) PT Reference Range ChangeNew: 11.9-14.2 Previous: 11.7-14.7 RECOMMENDED COUMADIN/WARFARIN INR THERAPY RANGESSTANDARD DOSE: 2.0-3.0 Includes: PROPHYLAXIS for venous thrombosis, systemic embolization; TREATMENT for venous thrombosis and/or pulmonary embolus.HIGH RISK: Target INR is 2.5-3.5 for patients wiht mechanical heart valves. Lab Interpretation Abnormal (test code = 85930-0) [facility]OM[facility]/[id number] 08:57:00 Test Item Value Reference Range Interpretation Comments PROTIME (BEAKER) (test code = 15.6 seconds 11.9-14.2 H 759) INR (BEAKER) (test code = 370) 1.29 <=5.90 Effective 07/03/2018: PT Reference Range ChangeNew: 11.9-14.2 Previous: 11.7- 14.7RECOMMENDED COUMADIN/WARFARIN INR THERAPY RANGESSTANDARD DOSE: 2.0-3.0 Includes: PROPHYLAXIS for venous thrombosis, systemic embolization; TREATMENT for venous thrombosis and/or pulmonary embolus.HIGH RISK: Target INR is2.5-3.5 for patients wiht mechanical heart valves.CBC W/PLT COUNT & AUTO [id number] 08:38:00 Test Item Value Reference Range Interpretation Comments WHITE BLOOD CELL COUNT (BEAKER) 11.9 K/ L 3.5-10.5 H (test code = 775) RED BLOOD CELL COUNT (BEAKER) 3.30 M/ L 4.63-6.08 L (test code = 761) HEMOGLOBIN (BEAKER) (test code = 10.0 GM/DL 13.7-17.5 L 410) HEMATOCRIT (BEAKER) (test code = 31.7 % 40.1-51.0 L 411) MEAN CORPUSCULAR VOLUME (BEAKER) 96.1 fL 79.0-92.2 H (test code = 753) MEAN CORPUSCULAR HEMOGLOBIN 30.3 pg 25.7-32.2 (BEAKER) (test code = 751) [...] (test code = 437) NEUTROPHILS ABSOLUTE COUNT 8.81 K/ L 1.78-5.38 H (BEAKER) (test code = 670) LYMPHOCYTES ABSOLUTE COUNT 1.40 K/ L 1.32-3.57 (BEAKER) (test code = 414) MONOCYTES ABSOLUTE COUNT (BEAKER) 1.14 K/ L 0.30-0.82 H (test code = 415) EOSINOPHILS ABSOLUTE COUNT 0.40 K/ L 0.04-0.54 (BEAKER) (test code = 416) BASOPHILS ABSOLUTE COUNT (BEAKER) 0.13 K/ L 0.01-0.08 H (test code = 417) IMMATURE GRANULOCYTES-RELATIVE 0 % 0-1 PERCENT (BEAKER) (test code = 2801) URINALYSIS W/ REFLEX URINE [id number] 16:49:00 Test Item Value Reference Range Interpretation [...] /HPF 520) SOURCE(BEAKER) (test code = 2795) [facility] ID - [auto]Hemoglobin and [id number] 13:46:00 Test Item Value Reference Range Interpretation Comments Hemoglobin (test code 9.9 See_Comment L [Auto mated = 786-4) message] The system which generated this result transmit leti reference range : 13.7 - 17.5 GM/ DL. The reference range was not u sed to interpret th is result as normal/abnormal . Hematocrit (test code 30.5 % 40.1-51 L = 4544-3) ABAD (test code = ABAD) [facility] ID - 6000 Lab Interpretation Abnormal (test code = 56206-3) [facility]HEMO[facility] AND [id number] 13:46:00 Test Item Value Reference Range Interpretation Comments HEMOGLOBIN (BEAKER) (test code = 9.9 GM/DL 13.7-17.5 L 410) HEMATOCRIT (BEAKER) (test code = 30.5 % 40.1-51.0 L 411) [facility] ID - [id number] 07:18:00 Test Item Value Reference Range Interpretation Comments Phosphorus (test code = 3.8 mg/dL 2.3-4.7 2777-1) ABAD (test code = ABAD) [facility] ID - SOTERO M Lab Interpretation (test Normal code = 78879-1) [facility]UM2020-[facility]-12 07:18:00 Test Item Value Reference Range Interpretation Comments MAGNESIUM (BEAKER) (test code = 1.7 mg/dL 1.6-2.6 627) [facility] ID - SOTERO [id number] 07:18:00 Test Item Value Reference Range Interpretation Comments PHOSPHORUS (BEAKER) (test code = 3.8 mg/dL 2.3-4.7 604) [facility] ID - SOTERO MBASIC METABOLIC [id number] 07:18:00 Test Item Value Reference Range Interpretation [...] S NOT APPLICABLE FOR DIALYSIS PATIEN TS. [facility] ID - SOTERO MCBC (Hemogram only)2019-12-18 06:28:00 Test Item Value Reference Range Interpretation Comments WBC (test code = 6690-2) 8.3 See_Comment [A utomated message] The system [facility] generated this result transmitted ref erence range: 3.5 - 10 .5 K/L. The refe rence range was not u sed to interpret this result as normal/abnor mal. RBC (test code = 789-8) 2.73 See_Comment L [Au tomated message] The system [facility] generated this result transmitted ref erence range: 4.63 - 6 .08 M/L. The refe rence range was not u sed to interpret this result as normal/abnor mal. MCHC (test code = 786-4) 32.5 See_Comment L [A utomated message] The system [facility] generated this result transmitted ref erence range: 32.3 - 3 6.5 GM/DL. The refe rence range was not u sed to interpret this result as normal/abnor mal. Hematocrit (test code = 25.5 % 40.1-51 L 4544-3) MCV (test code = 787-2) 93.4 fL 79-92.2 H MCH (test code = 785-6) 30.4 pg 25.7-32.2 RDW (test code = 788-0) 15.6 % 11.6-14.4 H Platelets (test code = 626 See_Comment H [Aut omated message] 777-3) The system [facility] generated this result transmitted ref erence range: 150 - 45 0 K/CU MM. The referen ce range was not u sed to interpret this result as normal/abnor mal. MPV (test code = 9.6 fL 9.4-12.4 06818-0) nRBC (test code = 413) 0 See_Comment [Aut omated message] The system [facility] generated this result transmitted ref erence range: 0 - 0 /1 00 WBC. The refere nce range was not u sed to interpret this result as normal/abnor mal. Lab Interpretation (test Abnormal code = 87016-4) [facility] (HEMOGRAM ONLY)2019-12-18 06:28:00 Test Item Value [...] WBC 0-0 (BEAKER) (test code = 413) PROTHROMBIN TIME/[id number] 06:27:00 Test Item Value Reference Range Interpretation [...] is2.5-3.5 for patients wiht mechanical heart valves.CT, [id number] 02:28:00Patient won't take oral contrastUnlisted Reason for Exam - Click Yes and Enter Reason Below->No[facility] [place] : 1990 Sex: MFINAL [...] Meghan Atkins MDReport Verified Date/Time: 12/18/2019 02:28:03 CT abdomen/pelvis with IV [id number] 02:28:00Interface, External Ris In - 12/18/2019 2:31 [...] bilateral pleural effusions, decreased. Signed: Meghan Atkins [facility] Verified Date/Time: 12/18/2019 02:28:03 [facility]HEMOGLOB[facility] AND [id number] 15:00:00 Test Item Value Reference Range Interpretation Comments HEMOGLOBIN (BEAKER) (test code = 8.5 GM/DL 13.7-17.5 L 410) HEMATOCRIT (BEAKER) (test code = 26.0 % 40.1-51.0 L 411) [facility] ID - 6000BASIC METABOLIC [id number] 04:30:00 Test Item Value Reference Range Interpretation [...] S NOT APPLICABLE FOR DIALYSIS PATIEN TS. [facility] ID - EDASIHEPATIC FUNCTION [id number] 04:28:00 Test Item Value Reference Range Interpretation [...] (test code = 7 U/L 6-55 347) [facility] ID - [id number] 04:21:00 Test Item Value Reference Range Interpretation Comments MAGNESIUM (BEAKER) (test code = 1.5 mg/dL 1.6-2.6 L 627) [facility] ID - [id number] 04:21:00 Test Item Value Reference Range Interpretation Comments PHOSPHORUS (BEAKER) (test code = 4.3 mg/dL 2.3-4.7 604) [facility] ID - EDASIPROTHROMBIN TIME/[id number] 03:59:00 Test Item Value Reference Range Interpretation [...] for patients wiht mechanical heart valves.HEMOGLOBIN AND [id number] 03:58:00 Test Item Value Reference Range Interpretation [...] (BEAKER) (test code = 413) HEMOGLOBIN AND [id number] 15:29:00 Test Item Value Reference Range Interpretation Comments HEMOGLOBIN (BEAKER) (test code = 9.0 GM/DL 13.7-17.5 L 410) HEMATOCRIT (BEAKER) (test code = 27.9 % 40.1-51.0 L 411) [facility] ID - 6000POC-Glucose [id number] 13:02:00 Test Item Value Reference Range Interpretation Comments POC-Glucose Meter (test 86 mg/dL 70-110 : TE STED AT [facility] code = 1538) [address] [place], [address]: 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 ID = [id number] for APOLLO FREDERICK RA Lab Interpretation (test Normal code = 10814-0) [facility]POCT[facility]SE [id number] 13:02:00 Test Item Value Reference Range Interpretation Comments POC-GLUCOSE METER 86 mg/dL 70-110 : TESTED A T [facility] 6720 (BEAKER) (test code = CHANTE Mohamud [facility], 1538) [id number]: 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 ID = [id number] for RAYO ELLER HEPATIC FUNCTION [id number] 11:23:00 Test Item Value Reference Range Interpretation [...] (test code = 9 U/L 6-55 347) [employer] ID - THUAN FOperator ID - THUAN [id number] 10:49:00 Test Item Value Reference Range Interpretation Comments LIPASE (BEAKER) (test code = 749) 16 U/L 8-78 [employer] ID - THUAN FLactic acid, [id number] 10:31:00 Test Item Value Reference Range Interpretation Comments Lactate, Venous (test code 0.55 mmol/L 0.5-2.2 = 2872) ABAD (test code = ABAD) [facility] ID - THUAN F Lab Interpretation (test Normal code = 26951-5) [facility], [id number] 10:31:00 Test Item Value Reference Range Interpretation Comments LACTATE BLOOD VENOUS (2) (BEAKER) 0.55 mmol/L 0.50-2.20 (test code = 2872) [facility] ID - THUAN FHEMOGLOBIN AND [id number] 09:49:00 Test Item Value Reference Range Interpretation Comments HEMOGLOBIN (BEAKER) (test code = 9.5 GM/DL 13.7-17.5 L 410) HEMATOCRIT (BEAKER) (test code = 30.0 % 40.1-51.0 L 411) [facility] ID - GenevieveBASIC METABOLIC [id number] 05:52:00 Test Item Value Reference Range Interpretation [...] S NOT APPLICABLE FOR DIALYSIS PATIEN TS. [facility] ID - [id number] 05:50:00 Test Item Value Reference Range Interpretation Comments MAGNESIUM (BEAKER) (test code = 1.7 mg/dL 1.6-2.6 627) [facility] ID - [id number] 05:50:00 Test Item Value Reference Range Interpretation Comments PHOSPHORUS (BEAKER) (test code = 4.0 mg/dL 2.3-4.7 604) [facility] ID - EDASIPROTHROMBIN TIME/[id number] 05:18:00 Test Item Value Reference Range Interpretation [...] (BEAKER) (test code = 413) HEMOGLOBIN AND [id number] 21:27:00 Test Item Value Reference Range Interpretation Comments HEMOGLOBIN (BEAKER) (test code = 10.5 GM/DL 13.7-17.5 L 410) HEMATOCRIT (BEAKER) (test code = 32.4 % 40.1-51.0 L 411) [facility] ID - 6000HEMOGLOBIN AND [id number] 17:10:00 Test Item Value Reference Range Interpretation Comments HEMOGLOBIN (BEAKER) (test code = 8.8 GM/DL 13.7-17.5 L 410) HEMATOCRIT (BEAKER) (test code = 26.8 % 40.1-51.0 L 411) [facility] ID - 6000Oxygen saturation, [id number] 13:56:00 Test Item Value Reference Range Interpretation Comments O2 Saturation (Measured) (test code = 87.3 % 53464-8) [facility] HospitalOXYGEN SATURATION, [id number] 13:56:00 Test Item Value Reference Range Interpretation Comments O2 SATURATION (MEASURED) (BEAKER) 87.3 % (test code = 1455) OXYGEN SATURATION, [id number] 13:34:00 Test Item Value Reference Range Interpretation Comments O2 SATURATION (MEASURED) (BEAKER) 93.0 % (test code = 1455) HEMOGLOBIN AND [id number] 11:00:00 Test Item Value Reference Range Interpretation Comments HEMOGLOBIN (BEAKER) (test code = 9.9 GM/DL 13.7-17.5 L 410) HEMATOCRIT (BEAKER) (test code = 31.5 % 40.1-51.0 L 411) [facility] ID - 6000ANG, EMBOLIZATION, EXTENSIVE - [id number] 10:36:00 Reason for exam:->GDA embolization for duodenol bulb bleedAnesthesia:->General [facility] [place] : 1990 Sex: MFINAL REPORT Procedure: Transarterial embolization of gastroduodenal artery. 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 Empiric GDA embolization was requested. Gathering Machine Feeder: Rayshawn Motley M.D. Reel Cart Operator: Jef Rosen Modality: Sonography and fluoroscopy. DOSE REDUCTION: The examination was performed according to departmental dose- optimization program. Fluoro time: 11.7 minutes Radiation dose: [...] standard exchanges. Over the wire a 5 Qatari short vascular sheath was placed. The sheath was connected to a heparinized saline drip. Over the wire, a 5 Qatari reverse curve catheter was placed. This was [...] MDReport Verified Date/Time: 12/15/2019 10:36:44 Reading Location: [place] [address] Angio Body Reading Room IR Embolization [id number] 10:36:00Interface, External Ris In - 12/15/2019 10:38 AM CSTFINAL REPORT Procedure: Transarterial embolization of gastroduodenal artery. 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 Empiric GDA embolization was requested. Gathering Machine Feeder: Rayshawn Motley M.D. Reel Cart Operator: Jef Rosen Modality: Sonography and fluoroscopy. [...] usingstandard exchanges. Over the wire a 5 Qatari short vascular sheath was placed. The sheath was connected to a heparinized saline drip. Over the wire, a 5 Qatari reverse curve catheter was placed. This was [...] MDReport Verified Date/Time: 12/15/2019 10:36:44 Reading Location: [place] [address] Angio Body Reading Room 10:36 [facility] 2019-[facility]15 04:46:00 Test Item Value Reference Range Interpretation Comments MAGNESIUM (BEAKER) (test code = 1.7 mg/dL 1.6-2.6 627) [facility] ID - SOTERO [id number] 04:46:00 Test Item Value Reference Range Interpretation Comments PHOSPHORUS (BEAKER) (test code = 2.9 mg/dL 2.3-4.7 604) [facility] ID - SOTERO MBASIC METABOLIC [id number] 04:46:00 Test Item Value Reference Range Interpretation [...] S NOT APPLICABLE FOR DIALYSIS PATIEN TS. [facility] ID - SOTERO MHEPATIC FUNCTION [id number] 04:46:00 Test Item Value Reference Range Interpretation [...] (test code = 9 U/L 6-55 347) [facility] ID - SOTERO MPROTHROMBIN TIME/[id number] 04:36:00 Test Item Value Reference Range Interpretation [...] (BEAKER) (test code = 413) Prepare Leuko-Red [id number] 23:54:00 Test Item Value Reference Range Interpretation Comments CROSSMATCH (test code = 2264) COMPATIBLE Unit ABO (test code = A Pos 9412443) UNIT NUMBER (test code = [id number] 934-0) Status (test code = 6620072) TX_TIMEINCHART Blood Bank Product (test code RED BLOOD CELLS = 2263) PRODUCT CODE (test code = T0883B52 933-2) [facility] HospitalHEMOGLOBIN AND [id number] 22:11:00 Test Item Value Reference Range Interpretation Comments HEMOGLOBIN (BEAKER) (test code = 8.2 GM/DL 13.7-17.5 L 410) HEMATOCRIT (BEAKER) (test code = 25.0 % 40.1-51.0 L 411) [facility] ID - 6000H. pylori antigen, [id number] 16:47:00 Test Item Value Reference Range Interpretation Comments H. pylori Not detected Not detected Antimicrobial s, proton Antigen (test pump inhibitor s, and code = bismuth 6099552) preparationsinh ibit H. pylori and atilio stion up to two weeks pr ior to testing may cau se false negative result s. If clinically jesus cated the test should be repeated on a new specim en obtained two we eks after discontinuing t reatment. ABAD (test Performing Lab code = ABAD) *[facility], [address] [place] [id number] Anjelica Gupta MD, PhD [facility] HospitalLACTIC ACID, [id number] 13:05:00 Test Item Value Reference Range Interpretation Comments LACTATE BLOOD VENOUS 1.41 mmol/L 0.50-2.20 Specime n slightly (2) (BEAKER) (test hemolyzed code = 2872) [facility] ID - KIRA CHEMOGLOBIN AND [id number] 11:51:00 Test Item Value Reference Range Interpretation Comments HEMOGLOBIN (BEAKER) (test code = 11.7 GM/DL 13.7-17.5 L 410) HEMATOCRIT (BEAKER) (test code = 35.4 % 40.1-51.0 L 411) [facility] ID - 6000SARS-COV2/RT-PCR ([facility])2019-12-14 07:38:00 Test Item Value Reference Range Interpretation Comments SARS-COV2/RT-PCR (test Negative Not Detected, Negative, code = 7032474) See external report for linked test SARS-COV-[address] [facility] ERYN (test code = 6963785) Negative result for this test determines that [...] the Najera SARS-CoV-2 assay.Fact Sheet for Healthcare Providers:https://www.molecular.najera/vivien/ HW_CSAN-HcQ-8_ACW_Aslz_Pshfm_45-964144.pdfFact Sheet for Healthcare Patients:https://www.molecular.ab micaela/vivien/HH_NSCH-QxL-2_Ziirdup_Qfgs_Vlupp_DT_78-051981G2.pdfPerforming Laboratory:[facility] [place] [address] BASIC METABOLIC [id number] 05:39:00 Test Item Value Reference Range Interpretation [...] S NOT APPLICABLE FOR DIALYSIS PATIEN TS. [facility] ID - SOTERO [id number] 05:29:00 Test Item Value Reference Range Interpretation Comments PTT (test code = 80045-4) 26.0 See_Comment [ Automated message] The system [employer] generated this result transmitted ref erence range: 22.5 - 3 6.0 seconds. The re ference range was not u sed to interpret this result as normal/abnor mal. Lab Interpretation (test Normal code = 25767-2) [facility] HospitalAPTT2020-11-08 05:29:00 Test Item Value Reference Range Interpretation [...] 0-0 CELLS (BEAKER) (test code = 413) [id number] 05:11:00 Test Item Value Reference Range Interpretation Comments MAGNESIUM (BEAKER) (test code = 1.5 mg/dL 1.6-2.6 L 627) [facility] ID - SOTERO [id number] 05:11:00 Test Item Value Reference Range Interpretation Comments PHOSPHORUS (BEAKER) (test code = 2.9 mg/dL 2.3-4.7 604) [facility] ID - SOTERO MPROTHROMBIN TIME/[id number] 05:04:00 Test Item Value Reference Range Interpretation [...] for patients wiht mechanical heart valves.HEMOGLOBIN AND [id number] 01:10:00 Test Item Value Reference Range Interpretation Comments HEMOGLOBIN (BEAKER) (test code = 9.5 GM/DL 13.7-17.5 L 410) HEMATOCRIT (BEAKER) (test code = 28.2 % 40.1-51.0 L 411) [facility] ID - 6000Blood gas, [id number] 01:08:00 Test Item Value Reference Range Interpretation Comments pH, Arterial (test code 7.56 7.35-7.45 H = 2744-1) pCO2, Arterial (test 27 See_Comment L [Autom ated message] code = 2019-8) The system [employer] generated this result transmit leti reference range : 35 - 45 mm Hg. The reference range was not used to interpret this result as normal/abnormal . pO2, Arterial (test 212 See_Comment H [Automa leti message] code = 2703-7) The system ich generated this result transmit leti reference range : 80 - 90 mm Hg. The reference range was not used to interpret this result as normal/abnormal . O2 Sat, Arterial (test 99.6 % 96-97 H code = 2708-6) HCO3, Arterial (test 23 mmol/L 21-29 code = 1960-4) Base Excess, Arterial 1.9 mmol/L -2-3 (test code = 1925-7) Patient Temperature 37.5 (test code = 8310-5) FIO2 (test code = 1819) 50 Lab Interpretation Abnormal (test code = 93404-3) [facility] HospitalBLOOD GAS, [id number] 01:08:00 Test Item Value Reference Range Interpretation [...] FIO2 (BEAKER) (test code = 1819) 50.0 [id number] 22:08:00 Test Item Value Reference Range Interpretation Comments Fibrinogen (test code = 3255-7) 484 mg/dl 225-434 H Lab Interpretation (test code = Abnormal 17161-7) [facility] HospitalFIBRINOGEN2020-11-07 22:08:00 Test Item Value Reference Range Interpretation Comments FIBRINOGEN LEVEL (BEAKER) (test 484 mg/dl 225-434 H code = 658) [id number] 17:54:00 Test Item Value Reference Interpretation Comments Range Protime (test code = 16.8 See_Comment H [Autom ated 5902-2) message] The system which generated this result transmitted reference range : 11.9 - 14.2 seconds. The reference range was not used to interpret this result as normal/abnormal . INR (test code = 1.40 See_Comment [Automated 3371-6) message] The system which generated this result transmitted reference range : <=5.90. The reference range was not used to interpret this result as normal/abnormal . PTT (test code = 35.9 See_Comment [Automated 70711-5) message] The system which generated this result transmitted reference range : 22.5 - 36.0 seconds. The reference range was not used to interpret this result as normal/abnormal . ABAD (test code = Effective 07/03/2018: ABAD) PT Reference Range ChangeNew: 11.9-14.2 Previous: 11.7-14.7 RECOMMENDED COUMADIN/WARFARIN INR THERAPY RANGESSTANDARD DOSE: 2.0-3.0 Includes: PROPHYLAXIS for venous thrombosis, systemic embolization; TREATMENT for venous thrombosis and/or pulmonary embolus.HIGH RISK: Target INR is 2.5-3.5 for patients wiht mechanical heart valves. Lab Interpretation Abnormal (test code = 81407-2) [facility] HospitalPT/[id number] 17:54:00 Test Item Value Reference Range Interpretation [...] is2.5-3.5 for patients wiht mechanical heart valves.PROTHROMBIN TIME/[id number] 17:53:00 Test Item Value Reference Range Interpretation [...] patients wiht mechanical heart valves.Type and screen, onubbmtrv1239-47-33 17:10:00 Test Item Value Reference Range Interpretation Comments ABO/RH AUTOMATED (BEAKER) (test A POSITIVE code = 2260) Ab Scrn (test code = 890-4) NEGATIVE [facility] HospitalCOMPREHENSIVE METABOLIC [id number] 16:58:00 Test Item Value Reference Range Interpretation [...] S NOT APPLICABLE FOR DIALYSIS PATIEN TS. [facility] ID - KIRA [id number] 16:57:00 Test Item Value Reference Range Interpretation Comments MAGNESIUM (BEAKER) 1.5 mg/dL 1.6-2.6 L Specimen slightly (test code = 627) hemolyzed [facility] ID - KIRA CCBC (HEMOGRAM ONLY)2019-12-13 16:41:00 Test Item Value [...] WBC 0-0 (BEAKER) (test code = 413) NAL-[id number] 00:00:00Ordered by an unspecified provider.[facility] HospitalGlucose Pleural [id number] 16:43:00 Test Item Value Reference Range Interpretation Comments Glucose, 114 mg/dL Reference rang e Pleural Fluid approximates t hat (test code = found in serum. 2346-5) ABAD (test code Performing Lab = ABAD) [facility] [address] [place] [address] Parker Herman MD, PhD, VENKATA [facility] HospitalLactate Dehydrogenase (LD), Pleural [id number] 16:42:00 Test Item Value Reference Range Interpretation Comments Lactate 36 U/L See Note: Reference Dehydrogenase (LD), Range:TR ANSUDATE Pleural Fluid (test : <113E XUDATE: code = 81495-1) >113SAMPL E SLIGHTLY LIPEMIC. ABAD (test code = Performing Lab ABAD) [facility] [address] [place] [address] Parker Herman MD, PhD, VENKATA [facility] HospitalBody fluid culture + gram [id number] 13:02:00 Test Item Value Reference Range Interpretation Comments Result (test code = 6463-4) No growth Gram Stain Result (test No organisms seen code = 1123) ABAD (test code = ABAD) [facility] HospitalBODY FLUID CULTURE + GRAM [id number] 13:02:00 Test Item Value Reference Range Interpretation Comments CULTURE (BEAKER) (test No growth code = 1095) GRAM STAIN RESULT <1+ White blood cells (BEAKER) (test code = seen 1123) GRAM STAIN RESULT No organisms seen (BEAKER) (test code = 194103) POCT-GLUCOSE [id number] 12:55:00 Test Item Value Reference Range Interpretation Comments POC-GLUCOSE METER 93 mg/dL 70-110 : TESTED A T [facility] 6720 (BEAKER) (test code = CHANTE Mohamud [place], 1538) [address]: 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 ID = [id number] for DELFINO CABAN Protein, Total, Pleural [id number] 12:08:00 Test Item Value Reference Range Interpretation Comments PROTEIN, 1.1 Reference range is TOTAL, not defined and PLEURAL FLUID interpretation must (test code = be performed in the 2882-9) consideration o f the pathophysiology of the analyte and the clinical contex t. TEST PERFORMED AT [facility] ABAD (test Reference range is code = ABAD) not defined and interpretation must be performed in the consideration of the pathophysiology of the analyte and the clinical context. TEST PERFORMED AT [facility] HospitalPROTEIN, TOTAL, PLEURAL [id number] 12:08:00 Test Item Value Reference Range Interpretation Comments PROTEIN, TOTAL, 1.1 Reference ra nge is not PLEURAL FLUID defined and in terpretation (BEAKER) (test code must be performed in the = 2900279) consideration o f the pathophysiology of the analyte and the clinical context.TEST PE RFORMED AT [facility] Reference range is not defined and interpretation must be performed in the consideration of the pathophysiology of the analyte and the clinical context.[facility] MET[facility]OLIC PANEL 2019-12-07 06:49:00 Test Item [...] S NOT APPLICABLE FOR DIALYSIS PATIEN TS. [facility] ID - PPJMJSPUJEVHTX0738-02-42 06:39:00 Test Item Value Reference Range Interpretation Comments MAGNESIUM (BEAKER) (test code = 2.1 mg/dL 1.6-2.6 627) [facility] ID - [id number] 06:39:00 Test Item Value Reference Range Interpretation Comments PHOSPHORUS (BEAKER) (test code = 2.8 mg/dL 2.3-4.7 604) [facility] ID - EDASICBC W/PLT COUNT & AUTO [id number] 06:33:00 Test Item Value Reference Range Interpretation [...] PERCENT (BEAKER) (test code = 2801) PROTHROMBIN TIME/[id number] 06:22:00 Test Item Value Reference Range Interpretation [...] is2.5-3.5 for patients wiht mechanical heart valves.POCT-GLUCOSE [id number] 06:16:00 Test Item Value Reference Range Interpretation Comments POC-GLUCOSE METER 92 mg/dL 70-110 : TESTED A T [facility] 67[address] (Eventyard) (test code = [place] JackBe [facility], 1538) [address]: 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 ID = [id number] for EDILMA LEELEENORMAN POCT-GLUCOSE [id number] 00:04:00 Test Item Value Reference Range Interpretation Comments POC-GLUCOSE METER 81 mg/dL 70-110 : TESTED A T [facility] 67[address] (Eventyard) (test code = [facility] JackBe [facility], 1538) [address]: 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 ID = [id number] for [place] HEMOGLOBIN AND [id number] 20:49:00 Test Item Value Reference Range Interpretation Comments HEMOGLOBIN (BEAKER) (test code = 9.8 GM/DL 13.7-17.5 L 410) HEMATOCRIT (BEAKER) (test code = 30.0 % 40.1-51.0 L 411) [facility] ID - 6000POCT-GLUCOSE [id number] 17:25:00 Test Item Value Reference Range Interpretation Comments POC-GLUCOSE METER 103 mg/dL 70-110 : TESTED A T [facility] 6720 (BEAKER) (test code = [facility], 1538) [address]: 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 ID = [id number] for VIKA TERRENCEJASPREET, CHUN POCT-GLUCOSE [id number] 14:01:00 Test Item Value Reference Range Interpretation Comments POC-GLUCOSE METER 99 mg/dL 70-110 : TESTED A T [facility] 6720 (BEAKER) (test code = [facility], 1538) [address]: 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 ID = [id number] for ANDRÉS VOGEL, [facility] POCT-GLUCOSE [id number] 13:51:00 Test Item Value Reference Range Interpretation Comments POC-GLUCOSE METER 84 mg/dL 70-110 : TESTED A T [facility] 6720 (BEAKER) (test code = [facility], 1538) [address]: 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 ID = [id number] for NEERAJ ADELAIDAJON U/S, [id number] 13:05:00Laterality?->RightReason for exam:- >pleural effusionSpecimen to be collected:->ldh, protein, glucose, amylase, lipase, gram stain, culture, cs and cultureShould this be performed at the bedside?->NoLabs to be Ordered:->Glucose+LDH+ProteinLabs to be Ordered:->Cell CountLabs to be Ordered:->Body Fluid Culture (w/Gram Stain, C\\T\\S)[facility] [place] : 1990 Sex: MFINAL REPORT Exam: Ultrasound guided thoracentesis Clinical History: Right-sided Pleural Effusion Gathering Machine Feeder: Michelle Eric PA-C Supervising Physician: Austin Tee [...] MDReport Verified Date/Time: 12/06/2019 13:05:38 Reading Location: [address] Ultrasound Reading Room Bette ctronically signed by: AUSTIN TEE MD on 12/06/2019 01:05 PMUS thoracentesis 2019-12-06 13:05:00Interface, External Ris In - 12/06/2019 1:08 PM CDTFINAL REPORT Exam: Ultrasound guided thoracentesis Clinical History: Right-sided Pleural Effusion Gathering Machine Feeder: Michelle Eric PA-C Supervising Physician: Austin Tee [...] Tee MDReport Verified Date/Time: 12/06/2019 13:05:38 Reading Location:[address] Ultrasound Reading Room [facility] W/PLT COUNT & AUTO [id number] 06:48:00 Test Item Value Reference Range Interpretation [...] (BEAKER) (test code = 2801) BASIC METABOLIC [id number] 06:48:00 Test Item Value Reference Range Interpretation [...] S NOT APPLICABLE FOR DIALYSIS PATIEN TS. [facility] ID - [id number] 06:39:00 Test Item Value Reference Range Interpretation Comments MAGNESIUM (BEAKER) (test code = 2.2 mg/dL 1.6-2.6 627) [facility] Hand ID - RTUTDKJRMJFYSPP6568-32-00 06:39:00 Test Item Value Reference Range Interpretation Comments PHOSPHORUS (TAI) (test code = 3.1 mg/dL 2.3-4.7 604) [facility]mill Hand ID - EDASIPROTHROMBIN TIME/[id number] 06:17:00 Test Item Value Reference Range Interpretation Comments PROTIME (TAI) (test code = 14.2 seconds 11.9-14.2 759) INR (CHRISAKER) (test code = 370) 1.13 <=5.90 Effective 07/03/2018: PT Reference Range ChangeNew: 11.9-14.2 Previous: 11.7- 14.7RECOMMENDED COUMADIN/WARFARIN INR THERAPY RANGESSTANDARD DOSE: 2.0-3.0 Includes: PROPHYLAXIS for venous thrombosis, systemic embolization; TREATMENT for venous thrombosis and/or pulmonary embolus.HIGH RISK: Target INR is2.5-3.5 for patients wiht mechanical heart valves.POCT-GLUCOSE [id number] 23:39:00 Test Item Value Reference Range Interpretation Comments POC-GLUCOSE METER 88 mg/dL 70-110 : TESTED A T [facility] 6720 (TAI) (test code = CHANTE Mohamud [facility], 1538) [address]: 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 ID = [id number] for JON NAVARRO Body fluid cell count with [id number] 21:03:00 Test Item Value Reference Range Interpretation Comments Appearance (test code Slightly Cloudy Clear A = 9335-1) Color (test code = Straw Colorless, Straw 6824-7) RBCs (test code = 170 See_Comment H [Automate d 96566-8) message] The system which generated this result transmit leti reference range : <=1 /cu mm. The reference range was not used to interpret this result as normal/abnormal . Adjusted WBC Count 455 See_Comment H [Automat ed (test code = 48246-2) messag e] The system which generated this result transmit leti reference range : <=5 /cu mm. The reference range was not used to interpret this result as normal/abnormal . Lining Cells (test 5 See_Comment H [Automat ed code = 34546-8) message] The system which generated this result transmit leti reference range : <=1 /cu mm. The reference range was not used to interpret this result as normal/abnormal . % Segs (test code = 4 % 04763-3) % Lymphs (test code = 63 % 24457-7) % Monos (test code = 31 % 85306-2) % Eos (test code = 2 % 96156-9) % Baso (test code = 0 % 40289-6) Container Body Fluid EDTA Tube (test code = 2873) Lab Interpretation Abnormal (test code = 13425-1) [facility] HospitalBODY FLUID CELL COUNT WITH [id number] 21:03:00 Test Item Value Reference Range Interpretation [...] EDTA Tube (BEAKER) (test code = 2873) [id number] 20:01:00 Test Item Value Reference Range Interpretation Comments LIPASE (BEAKER) (test code = 749) 10 U/L 8-78 [facility] ID - DBHEMOGLOBIN AND [id number] 19:42:00 Test Item Value Reference Range Interpretation Comments HEMOGLOBIN (BEAKER) (test code = 10.2 GM/DL 13.7-17.5 L 410) HEMATOCRIT (BEAKER) (test code = 31.7 % 40.1-51.0 L 411) Sawmill Hand ID - 6000RAD, CHEST, 1 VIEW, NON [id number] 19:34:00Reason for exam:->post right sided thoracentesisShould this be performed at the bedside?->Yes[facility]Name: [facility]AVIOLA [place] : 1990 Sex: MFINAL [...] Le Verified Date/Time: 12/05/2019 19:34:19 Reading Location: [address] Transitional Reading Room POCT-GLUCOSE [id number] 11:54:00 Test Item Value Reference Range Interpretation Comments POC-GLUCOSE METER 93 mg/dL 70-110 : Notified RN/MD: TESTED (BEAKER) (test code = AT [facility] [address] [place] [address]88) [facility], [facility] 30: 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 ID = [id number] for JULIUS ARRIAZA CBC (HEMOGRAM ONLY)2019-12-05 10:52:00 [...] (BEAKER) (test code = 413) BASIC METABOLIC [id number] 07:38:00 Test Item Value Reference Range Interpretation [...] S NOT APPLICABLE FOR DIALYSIS PATIEN TS. [facility]mill Hand ID - [id number] 07:31:00 Test Item Value Reference Range Interpretation Comments MAGNESIUM (BEAKER) (test code = 1.7 mg/dL 1.6-2.6 627) [facility] Hand ID - [id number] 07:31:00 Test Item Value Reference Range Interpretation Comments PHOSPHORUS (BEAKER) (test code = 4.0 mg/dL 2.3-4.7 604) Sawmill Hand ID - EDASIPROTHROMBIN TIME/[id number] 06:20:00 Test Item Value Reference Range Interpretation [...] mechanical heart valves.CBC W/PLT COUNT & AUTO [id number] 06:01:00 Test Item Value Reference Range Interpretation [...] PERCENT (BEAKER) (test code = 2801) POCT-GLUCOSE [id number] 05:38:00 Test Item Value Reference Range Interpretation Comments POC-GLUCOSE METER 91 mg/dL 70-110 : TESTED A T [facility] 6720 (BEAKER) (test code = [facility], 153) 15002: 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 ID = [id number] for BIYO , [place] POCT-GLUCOSE [id number] 18:00:00 Test Item Value Reference Range Interpretation Comments POC-GLUCOSE METER 114 mg/dL 70-110 H : TESTED A T [facility] 6720 (BEAKER) (test code = [facility], 153) 85564: 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 ID = [id number] for So moe, [place], [id number] 14:36:00Unlisted Reason for Exam - Click Yes and Enter Reason Below->NoDuodenal ulcer s/p epi/cautery, now with abdominal pain, rule out perforationMAGGIE [facility]AV[facility]OL[facility] [place] : 1990 Sex: [...] the right and transverse colon. Signed: Ramona Millereport Verified Date/Time: 12/04/2019 14:36:28 Reading Location: [address] Ortho Consult Reading Room HEMOGLOBIN AND [id number] 12:42:00 Test Item Value Reference Range Interpretation Comments HEMOGLOBIN (BEAKER) (test code = 9.5 GM/DL 13.7-17.5 L 410) HEMATOCRIT (BEAKER) (test code = 28.7 % 40.1-51.0 L 411) Sawmill Hand ID - 6000POCT-GLUCOSE [id number] 12:07:00 Test Item Value Reference Range Interpretation Comments POC-GLUCOSE METER 73 mg/dL 70-110 : TESTED A T [facility] 6720 (BEAKER) (test code = [place], 1538) 19445: 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 ID = [id number] for Viraj De La Vega BASIC METABOLIC [id number] 06:47:00 Test Item Value Reference Range Interpretation [...] S NOT APPLICABLE FOR DIALYSIS PATIEN TS. Sawmill Hand ID - SOTERO MPOCT-GLUCOSE [id number] 05:56:00 Test Item Value Reference Range Interpretation Comments POC-GLUCOSE METER 114 mg/dL 70-110 H : TESTED [facility] 6720 (BEAKER) (test code = [place], 1538) 04279: 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 ID = [id number] for [place] DIDI, BERTA PROTHROMBIN TIME/[id number] 05:04:00 Test Item Value Reference Range Interpretation [...] mechanical heart valves.CBC W/PLT COUNT & AUTO [id number] 04:50:00 Test Item Value Reference Range Interpretation [...] (BEAKER) (test code = 2801) HEMOGLOBIN AND [id number] 00:35:00 Test Item Value Reference Range Interpretation Comments HEMOGLOBIN (BEAKER) (test code = 8.9 GM/DL 13.7-17.5 L 410) HEMATOCRIT (BEAKER) (test code = 26.5 % 40.1-51.0 L 411) Sawmill Hand ID - 6000POCT-GLUCOSE [id number] 23:35:00 Test Item Value Reference Range Interpretation Comments POC-GLUCOSE METER 106 mg/dL 70-110 : TESTED A T [facility] 6720 (BEAKER) (test code = [place], 1538) 24094: 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 ID = [id number] for [place] DIDI, CONSETTA HEMOGLOBIN AND [id number] 18:31:00 Test Item Value Reference Range Interpretation Comments HEMOGLOBIN (BEAKER) (test code = 9.5 GM/DL 13.7-17.5 L 410) HEMATOCRIT (BEAKER) (test code = 28.7 % 40.1-51.0 L 411) Sawmill Hand ID - 6000POCT-GLUCOSE [id number] 17:46:00 Test Item Value Reference Range Interpretation Comments POC-GLUCOSE METER 117 mg/dL 70-110 H : TESTED A T [facility] 6720 (BEAKER) (test code = [facility], 1538) 42927: 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 ID = [id number] for So moe, Giavanna HEMOGLOBIN AND [id number] 12:04:00 Test Item Value Reference Range Interpretation Comments HEMOGLOBIN (BEAKER) (test code = 8.7 GM/DL 13.7-17.5 L 410) HEMATOCRIT (BEAKER) (test code = 26.0 % 40.1-51.0 L 411) Sawmill Hand ID - 6000POCT-GLUCOSE [id number] 11:58:00 Test Item Value Reference Range Interpretation Comments POC-GLUCOSE METER 132 mg/dL 70-110 H : TESTED A T [facility] 6720 (BEAKER) (test code = [facility], 1538) 39617: 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 ID = [id number] for So moe, Giavanna POCT-GLUCOSE [id number] 06:22:00 Test Item Value Reference Range Interpretation Comments POC-GLUCOSE METER 140 mg/dL 70-110 H : TESTED A T [facility] 6720 (BEAKER) (test code = [facility], 1538) 75992: 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 ID = [id number] for [place] LLIAMS, CONSETTA BASIC METABOLIC [id number] 05:07:00 Test Item Value Reference Range Interpretation [...] S NOT APPLICABLE FOR DIALYSIS PATIEN TS. Sawmill Hand ID - PIAYA LCBC W/PLT COUNT & AUTO [id number] 04:53:00 Test Item Value Reference Range Interpretation [...] PERCENT (BEAKER) (test code = 2801) PROTHROMBIN TIME/[id number] 04:44:00 Test Item Value Reference Range Interpretation [...] patients wiht mechanical heart valves.U/S, ABDOMINAL, WITH [id number] 01:27:00Reason for exam:->evaluate splenic vein, SMV, portal vein occlusion [facility] : 1990 Sex: MFINAL REPORT History: Upper [...] Verified Date/Time: 12/03/2019 01:27:24 US abdominal with [id number] 01:27:00Interface, External Ris In - 12/03/2019 1:29 [...] Rosalia Golden MDReport Verified Date/Time: 12/03/2019 01:27:24 [facility] [id number] 01:05:00 Test Item Value Reference Range Interpretation Comments HEMOGLOBIN (BEAKER) (test code = 8.9 GM/DL 13.7-17.5 L 410) HEMATOCRIT (BEAKER) (test code = 26.3 % 40.1-51.0 L 411) Sawmill Hand ID - 6000POCT-GLUCOSE [id number] 23:38:00 Test Item Value Reference Range Interpretation Comments POC-GLUCOSE METER 109 mg/dL 70-110 : TESTED A T [facility] 6720 (BEAKER) (test code = [facility] [place], 1538) 68888: 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 ID = [id number] for BERTA CASEY, [id number] 20:43:00 Test Item Value Reference Range Interpretation Comments ABO Grouping (test code = 2588) A Rh Factor (test code = 2589) [facility])2019-12-02 20:25:00 Test Item Value Reference Range Interpretation Comments SARS-COV2/RT-PCR (test Negative Not Detected, Negative, code = 0091433) See external report for linked test SARS-COV-[address] [facility] ERYN (test code = 5895524) Negative result for this test determines that [...] 564(g) of the Act.Fact Sheet for Healthcare Providers:https://www.MyFeelBack.[employer]/sites/default/files/product/documents/Fact_Shee c_LC_Emopzlddu_Ycnk_XPNZ-WhW-7.pdfFact Sheet for Healthcare Patients:https://www.[employer]el[employer].com/sites/default/files/product/ documents/Lelj_Futcw_Ceqfveca_Aidk_CAYM-RpA-0.pdfPerforming Laboratory:[facility], [place] [address]ORKHSXOMVV AND [id number] 18:29:00 Test Item Value Reference Range Interpretation Comments HEMOGLOBIN (BEAKER) (test code = 6.7 GM/DL 13.7-17.5 L 410) HEMATOCRIT (BEAKER) (test code = 20.1 % 40.1-51.0 L 411) Sawmill Hand ID - 6000POCT-GLUCOSE [id number] 17:35:00 Test Item Value Reference Range Interpretation Comments POC-GLUCOSE METER 124 mg/dL 70-110 H : TESTED A T [facility] 6720 (BEAKER) (test code = [facility], 1538) 51803: 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 ID = [id number] for AL ONSO MENSAH, VALERIA POCT-GLUCOSE [id number] 12:32:00 Test Item Value Reference Range Interpretation Comments POC-GLUCOSE METER 76 mg/dL 70-110 : TESTED A T [facility] 6720 (BEAKER) (test code = [facility], 1538) 48274: 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 ID = [id number] for JJ SO MENSAH, VALERIA HEMOGLOBIN AND [id number] 12:31:00 Test Item Value Reference Range Interpretation Comments HEMOGLOBIN (BEAKER) (test code = 7.3 GM/DL 13.7-17.5 L 410) HEMATOCRIT (BEAKER) (test code = 22.1 % 40.1-51.0 L 411) Sawmill Hand ID - 6000CBC W/PLT COUNT & AUTO [id number] 06:28:00 Test Item Value Reference Range Interpretation [...] (BEAKER) (test code = 2801) BASIC METABOLIC [id number] 06:19:00 Test Item Value Reference Range Interpretation [...] S NOT APPLICABLE FOR DIALYSIS PATIEN TS. Sawmill Hand ID - PIAYA LPROTHROMBIN TIME/[id number] 06:03:00 Test Item Value Reference Range Interpretation [...] INR is2.5-3.5 for patients wiht mechanical heart valves.[id number] 00:06:00 Test Item Value Reference Range Interpretation Comments LIPASE (BEAKER) (test code = 749) 4 U/L 8-78 L Sawmill Hand ID - PIAYA LBASIC METABOLIC [id number] 23:45:00 Test Item Value Reference Range Interpretation [...] S NOT APPLICABLE FOR DIALYSIS PATIEN TS. Sawmill Hand ID - PIARI LHEPATIC FUNCTION [id number] 23:45:00 Test Item Value Reference Range Interpretation [...] code = < U/L 6-55 L 347) Sawmill Hand ID - JESUS LPROTHROMBIN TIME/[id number] 23:37:00 Test Item Value Reference Range Interpretation [...] mechanical heart valves.CBC W/PLT COUNT & AUTO [id number] 23:33:00 Test Item Value Reference Range Interpretation [...] PERCENT (BEAKER) (test code = 2801) POCT-GLUCOSE [id number] 08:48:00 Test Item Value Reference Range Interpretation Comments POC-GLUCOSE METER 70 mg/dL 70-110 : TESTED A T [facility] 6720 (BEAKER) (test code = [place], 1538) 27511: 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 ID = [id number] for PRINCESS LUPILLO [id number] 07:51:00 Test Item Value Reference Range Interpretation Comments PHOSPHORUS (BEAKER) (test code = 3.9 mg/dL 2.3-4.7 604) Sawmill Hand HELIO LAROSE FBASIC METABOLIC [id number] 07:39:00 Test Item Value Reference Range Interpretation [...] S NOT APPLICABLE FOR DIALYSIS PATIEN TS. Sawmill Hand ID Binu LEE [id number] 07:18:00 Test Item Value Reference Range Interpretation Comments MAGNESIUM (BEAKER) (test code = 1.4 mg/dL 1.6-2.6 L 627) Sawmill Hand HELIO LEE LCBC (HEMOGRAM ONLY)2019-10-24 06:33:00 Test Item Value [...] WBC 0-0 (BEAKER) (test code = 413) [id number] 06:32:00 Test Item Value Reference Range Interpretation [...] is2.5-3.5 for patients wiht mechanical heart valves.POCT-GLUCOSE [id number] 21:22:00 Test Item Value Reference Range Interpretation Comments POC-GLUCOSE METER 83 mg/dL 70-110 : TESTED A T [facility] 6720 (BEAKER) (test code = [place], 1538) 94711: 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 ID = [id number] for MACIEL ANDREWST-GLUCOSE [id number] 16:39:00 Test Item Value Reference Range Interpretation Comments POC-GLUCOSE METER 70 mg/dL 70-110 : TESTED A T [facility] 6720 (BEAKER) (test code = [place], 1538) 92595: 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 ID = [id number] for ZULY MONTOYAABEL POCT-GLUCOSE [id number] 11:58:00 Test Item Value Reference Range Interpretation Comments POC-GLUCOSE METER 86 mg/dL 70-110 : TESTED A T [facility] 6720 (BEAKER) (test code = [facility] [place], 1538) 758[address]: 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 ID = [id number] for PRINCESS LUPILLO BASIC METABOLIC [id number] 08:03:00 Test Item Value Reference Range Interpretation [...] S NOT APPLICABLE FOR DIALYSIS PATIEN TS. Sawmill Hand ID - [id number] 08:01:00 Test Item Value Reference Range Interpretation Comments PHOSPHORUS (BEAKER) (test code = 4.2 mg/dL 2.3-4.7 604) Sawmill Hand ID - [id number] 08:01:00 Test Item Value Reference Range Interpretation Comments MAGNESIUM (BEAKER) (test code = 1.3 mg/dL 1.6-2.6 L 627) Sawmill Hand ID - ROSIANGPOCT-GLUCOSE [id number] 07:57:00 Test Item Value Reference Range Interpretation Comments POC-GLUCOSE METER 78 mg/dL 70-110 : TESTED Montrell Turner [facility] 6720 (BEAKER) (test code = [place] 1538) 86998: 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 ID = [id number] for AKIKO S, CORNEL CBC (HEMOGRAM ONLY)2019-10-23 [...] WBC 0-0 (BEAKER) (test code = 413) [id number] 07:18:00 Test Item Value Reference Range Interpretation [...] mechanical heart valves.CBC W/PLT COUNT & AUTO [id number] 22:51:00 Test Item Value Reference Range Interpretation [...] PERCENT (BEAKER) (test code = 2801) POCT-GLUCOSE [id number] 21:49:00 Test Item Value Reference Range Interpretation Comments POC-GLUCOSE METER 110 mg/dL 70-110 : [facility] ([facility] (test code = [place], 1538) 70490: 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 ID = [id number] for JEROMY CONTRERAS Tissue [id number] 16:34:00 Test Item Value Reference Range Interpretation Comments Case Report (test code Surgical Pathology = 104) Report Case: [id number] Authorizing Provider: Marc Clark MD Collected: 10/17/2019 04:26 PM Ordering Location: [facility] PERIOPER[facility]IVE Received: 10/20/2019 08:32 AM SERVICES Pathologist: Carmina Grewal MD Specimens: A) - Gallbladder B) - Spleen DIAGNOSIS (test code = e7tvzDBsSJJpz8oaILUskCG 3220) uZzEwMzNcZnRuYmpcdWMxIH ucxvSaGXddw5BzZ5KwZiOjH FxhbnNpXGRlZmxhbmcxMDMz TCU6bcMqRYZwOKtjZZEuWRx pGw1uhXSwnRxcAuXbZEJii1 ansbEGosdraCj0d7zyPZYoJ iG7cZXaJKjvY2jeyfYgfKYy KXDzYAn2tW16IFChqZ7pkIT cFKxqabVbCeD2GDlvFNMtRf Z4RJGnePJdTOHqV8muXFGyZ RovIKObVPfnmKIjIEH2mLoj e2I8bAOxcGAcdQzsLbAuKeG rQPSAa9DiWEd9iLwgP2IzUO OlWbR2qWDuNQZlSPcbNNJeU SSlyeE2oC28VFmnbsT8bBSh f9Njn54tw056lI2lmSDiBTY 1EWSqVHOmaZDxTUSvDWP9SN GpaYUaN0z9GhZniLDbN1S8M rRteJIlN9F2FqQguKRyR3P0 XqZupZBiDYScfDHrRy8weSZ jvMGjez5xsg48FNI8p8HxhA phMSY2GZX8TmLqMr1gkVWjK WVjLB2gFfOuvPJdTNNubb34 sUymYZwiniLrqO2eKiQhVXB wgBIoSBOdJL1hmIKzLEMkaC 5ucmxjXHBnYnJkcmhlYWRcc LmdjaUtNh2isTzoRIO6CNne T9mhhI6eEpZ0LTzhH1qoyL4 hSXc8OIkliRV3KUVkiD4kXE 3mtkdbz5bvJhAtQG9orwccd 4ypRyCuMO9bvhz4r8rtOpPw DS7vvwlvn6ppKjOeZWafPAN vcseoFDKdy0VpfwujTGMeq2 WoC1OfrBbcF42ndIfqV67rH IDupNpoyQ4voPaxsF8eMsRw ZnMyNFxxbFxwbGFpblxmMVx mczIwXGxhbmcxMDMzXGhpY2 ppKjPsHDIirBomRGfwj0EqX FAkTREvPaQmNC9sJ3NQYJEF PGLHXDLcMZYYR2vUC9aRQFV KJO4ENNpceLNhQHYtWI0sE6 rYP28IIqAJQM1DXNGDD9VGO OtJOXPTGFHLON1DGABRERRA SW5XVRRtdHKdPTSeWL5rDb9 gI6IHVQKFQ28BVIWWSYVQEk RccGFyXHBhciBCLiBTUExFR E9oGKXJNKJFBLQRU04IIgki MAKoOABsWKXNVWxTZYZ4TAI 3MiBHTVxwYXIgICAgLSBTUE gBCq6YPPjHINoabPRoOFMhB Z7iWHxLXHAXMHTJYZnUYqIO R43CMMXBCL7TEHIROpUVACr AYDEXW9DCCQRFSCZAO4cLV5 lHNRJDSy4SAFMCQAXKTEYcb eDdPIAwIC9RM9LLHNDFNCTH ArTYCHcQS83RHjPKYP5ELWr IYQOSF87SYBFeexpdVSEnU5 UcdRbssTErJKZaVHaoOOC9p 1xydGYxXHNzdGUxODAwMFxh bnNpXGRlZmxhbmcxMDMzXGZ 0bmJqXHVjMVxkZWZmMHtcZm 3fgDYvoJvaXzNiBNYaq8fro cSKyxqrlDq7c2quZZYwJtS8 lOJsDPrxD5imedVviENoZOQ fNJg4kJ39ZTPqyH4rjMQvWT rrauTcNeG1ZYgnOULbWvN5T SJprFKzRDKkO0piCIOcDGid PIApPFedgPHdIHX7lNjir9F 5bGVzaGVldHtcZjBcZnMyMi VMq9JiDQv2oFrwT3QjOBCjX xJ3xBLbQVVvQHmkKOFxDWJm gnR5bQ92KWydiuW7pDVrz2R ey33kr811bY4rbRCdYRZ3SO WtSPBllZZkKRCpXSR6NGSwq CZmC5ekQCRuTL8wcmsnPQok KGjdMYYuoOL4QVPsnXDkD0P vONHfHBmyHDVrepw1RqDaLw 8zbFJhzIfxTLifg8riq9qju VHmPbi5HRZfXdWpZiouIPab i2Ufk4nrBMXohd0wGDG6tWY cfQnwu9L4qZZbMMBsiIBeOI JsFS5ikORyAYOehC5kfnkvI HBnYnJkcmhlYWRccGdicmRy Gk0inRguOAL8XBzuK2tcfW2 wPyR6KEsuH1rcoV5dZRk6ZH giDJTqkTS3jgP8YEKjlDUhG 4KbrE4aDGPvIL4nito9u5sg QLH9UNfmZDOmDrS4fkO0WRK kbHFvSFXycQsdWWdog619ED C1MnXfIVInb8ZaU7CwjDurE 73dyBomG81xUVRujUfibW8z aSixuA4vVjDcTwRrNUgyqXm pKI4jFWHvJ7zkwCLbCVOhMA DwE6vaAxPqbP8juFbaMQgdy dQvRFUhKuu0TXQlrETkXVPb Eqa2CFWuNXFtS05ailmlKQP 8xN4du0aps7ZiBVbsGZW9QE Mix67fDLuaviF7TPodDe20G RjlEGJ4TpslFNS1uY== CPT Code(s) (test code z4vhfHXxAFNcqBQmUzEtUQN = 3357) qVSTsr2tyAPFijAImJjHpNf NcZnRuYmpcdWMxXGRlZmYwe 4oeg396mOPol2nlHCWbIlH2 kWToEZNeuGNlK716d2ani4s bzrSpuIL0ARMfSST2NKyqhq OeohT0JWiicNVdXlH2TYyvl yLfVGerotClofWzJps0BJGp T063WAX2rZsdm8ojNUX4GSH hWVDdXtLiFk0ilNQsU028LU PgYWRFBQWhkMn4OMCpdmQyi iKtiMYHc775Z697t9qoLARi mfMolZcYyxumz3dtL817XMN hcGVydzEyMjQwXHBhcGVyaD Q7QCQzWK8urxzmRqXfMR0ys tgzTeXsLT3lotk4CrFpDR7e cmdiNzIwXGhlYWRlcnkwXGZ nd4RybxjmLZ8lD9Ago0U5jY 9maXRcZGVmdGFiNzIwXGZvc c5hpUExDEidm0YiICG6jjZ7 lTHytKFtQKFsLD00Tywni2E xGsmbEYF7NPJcgjLtm6Vob0 edHgSgweXmV2okJ7MzJBJqA GTpNVBlYyRepgHyx5Rds5Aw xZSnmYw3f0xmDSUoKIUifNp cm1ngXBK8LSPrP0X4pTCbr7 ihEIiuDEYxaZS5vsolIAtlH RWhczQ0asipUSnsAPFrjDT9 qqmeHVprURNtUvL1chtfZKm wVBQfXPM1NJpka245YBA4GE xzYmtwYWdlXHBnbmNvbnRcc GduZGVjXHBsYWluXHBsYWlu XGYwXGZzMjRccWxccGxhaW5 ePeDlFrAhNTjlQP1sDXByI3 mklIIpXPIzQVXtA7bbHjIjs M2tfBydEKgpdoPsHDs8RqF4 SnP3GOCwX5sjDBE4 CLINICAL HISTORY (test w8qjxDZnXVUzvXYfYsVhSUN code = 3356) fGAUvf9epCOMuvFMtBgRaPv NcZnRuYmpcdWMxXGRlZmYwe 9byp637sQVxu3rgJBFhJvE4 qKOaEHVrhVYjV394u3jdb4h rpgMooNE5JTZyALC3VHwdzq SvaeB9APcilKNoYtS7RRjbq oScYZwqxkRnpvQpTtx0JTEd I222FGW7kKyxh7kjHWD1XOR fXZHxQlXbRy8jnQRnW775SV GkNQKLFEOuuFb0CQIdmdWnh lNypOZXd664T747l4qgGAWb kaSwdQpElusgw3syY849LQV hcGVydzEyMjQwXHBhcGVyaD S3MXFxJD3zexhhQvBrZB8pg rngLhMyON0cahw3MeAuDO1v cmdiNzIwXGhlYWRlcnkwXGZ he1LoipsaDC7nR2Itr8J7uN 9maXRcZGVmdGFiNzIwXGZvc w5lwBChUDioc1JmHBW2pkE8 gOParSXwWWCjNM78Zhxzo6J uHwrlRTW8YIViorIad0Qhm9 jaPyUjsnQfZ2uiA3FpWORgT WDwGQJyZxLvowRrh1Nke2Eo iKAwtGy0l0phBOVyBLPjrFh te2xmYVU4QNNyK2O1lKJdg7 ozWAveLFVhzCO4lfhcVWxgV MNmvtM4ahjnLUvdZNLnxVU6 kcxfNYlpBECkGfS5ozrcKQw uOLLsTUS7GLuui633ZYJ7YA xzYmtwYWdlXHBnbmNvbnRcc GduZGVjXHBsYWluXHBsYWlu XGYwXGZzMjRccWxccGxhaW5 gCtGgSoGuJAdoUO4eJHIlB0 ugfSNgCNIfCNDtK7ziThEza M3liWbwQPrgzcMgEPMdCE7q ZOSgLNnhf5ZdklqjNWFkoi8 htDTlkYEsH6SjSYOjcMqzEB G4mlQzUZDfCxgcWFMkMJ7sc rBpoVa1eWVhhZtcRFGlgkRd g7VxNW9xHaK0QPpdBRManu8 oFe7fvACmUZluITU1 SPECIMEN SOURCE (test u6qykGVySMMyaKHcHmKxHCY code = 3377) pPCWvu6sbFQNpbHGfXiBvTg NcZnRuYmpcdWMxXGRlZmYwe 5wbj987gGSzd6bgZAOtGjT8 tPZjKKRvuVJgQ049a0sxd9i ixmMzhRZ0IFWhICJ1TYdypv EhzlJ6LXudiUHdWrD0RHfyj qBjXGatjkVcqrFiRxi0PPGq V652XDI0dUovx9jbNFB3COY wVKSbDhRpYr2kyKAwN585JE YwGRBSMYVzsFg3KZVyidPpw eXirTTGx477S280z0asQHYm muHcgNtYiahmo5vcT103BIX hcGVydzEyMjQwXHBhcGVyaD E1USBiDY2cnclgMsAsVC5py klfPxEbEV6tufz9KaWnSE3k cmdiNzIwXGhlYWRlcnkwXGZ ln4XvcxorKU9eR5Yki7L1fQ 9maXRcZGVmdGFiNzIwXGZvc r8kjOQdSKnai4ZhVMK6zeM0 zGQolMRbDIKnPR52Xmgrd2F yYlsiZNM5VKOjvdLzh7Kkv9 jyFjUcloNqE0ixU4ObWDViO MZuFOMwGyKoupVap5Fif8Er dXBbiAm9y3klNQDvEOOssIw yx4gjELM0GIObG4O5hJTor2 piHQimLNPadMO3nduhKWlyB ZGnsqU7czklUKpkAOWisWS5 btlgTEqkRBXwScQ3dlfqHLn nOQPnYIQ1BGkft318HOE7OH xzYmtwYWdlXHBnbmNvbnRcc GduZGVjXHBsYWluXHBsYWlu XGYwXGZzMjRccWxccGxhaW5 kOrLxCzXfYEmvTP2nVNTsM1 wnvMZmRDTmOGGxR5dqUlBtz R8edPlkMEcjnoFzSRocxXio bGFkZGVyIGFuZCBzcGxlZW5 ccGFyfQ== GROSS DESCRIPTION h4vnvHJbVTZpyFZbFqOgCPF (test code = 3366) nGAFxk2iuIJRhdTRrXgBoSq NcZnRuYmpcdWMxXGRlZmYwe 1tqw947qHNoc5rwGXOgLfV9 oDDfRGEczNJaE241SDIeUGj nf0jlk9NgKEVukZRll7Q8FX GAyqbylLb8yGgdT42uv7T7T ahdO9cbNCNlRSXlA2OfUL6e FZOjQtj3UAL4FNO4JMLnKXA bT6WjQH7tUMEhbGFdHPg4i0 ykzTaxIHAnWAY9k8maZLubj vRlEL3kqq2piIn4p3msjyEg PXFeKBTcrUYKDYAhI5NjdYp gKj2jxTu1zLbkDaidPYS1Js d0NU0hoj67vcu4xXzhYUOpt hncQyG4NDyuDNYzmxmgLLy6 MFxtYXJnbDcyMFxtYXJncjc yMFxtYXJndDcyMFxtYXJnYj ybOJxmKKPqPXI2QMtwm465S BZ5NIqhd6fbp0xyrULpPec3 LAKyGkLjUweaVZyqf5Pvo1m dMLSmwt8dOUT7oWKfhEynl7 L1wTVmWMWrbHTtwcZoHOGhG rC6MTbyVD3avl92DXOgQNZ8 ta1qrEEqvArbcjFfcBHgXOg sB1JrZVJdv280GNWfL4UpZB Irg6B0dzEzCyQoVPDujFR9j pB3LDXpPGj3qTWhcbJ9rfSd oLDuM4hqoV81LcYuiTZsJ4P iqP90EuTroYMwW7AmgY53Hw JvcIRjP5YnxE98XcNyjXCsD YJymEOeQh4vuAYnwQZhn0Uo zAZdXRrcG32jk042BXYdmvL jC6kddARfiohgmACifvlyGQ trthZ2IYYbNGOqBLdcTCHeU GZzMjBcbGFuZzEwMzNcaGlj iJgqTXvfUaCdXEAbPIwsJ8h cZjFcZnMyMCBBLiBSZWNlaX ZlZCBmcmVzaCBsYWJlbGVkI HdpdGggdGhlIHBhdGllbnQn poUpHU0cJZBiG5Tra6Kfg44 znbVeYmSoTNXuGCAqS5EeyY LmECJtXWFbiEUuJLD6BbUiI 60ncL3cjJPhE6EgVHccDP14 COJqBQdpXKPkFB8izELnSUA vhtI8fI58f0y1UJ9xAF0sRJ CxEBceZfyjSWPijv6xWJoiv jLzuLKkvr7qEJI2ZYKfQSBy Z0cnoOcmBLW5M7XeUS9kLN2 fMMg4tBRyNC0aZZMtoNMofw AfSkqxKZ3tBAikEKYlal4sH QKyrrPejjE3ZKX1ojVqUMdn h11ek2KtIJEwNAFfcLSksxK tdGTsEIPnk44fy2VootwgLx nvxHvkczGfqYZxip3vNtchT RPpfuVwMLfqdTi2imEgzpHv MC53RvOGuFSzfDMyv3AeBPm hXBXsaw8gwq33rcMsbvGwrn HxcdX8yA5rFWitQNzesHsur TziI7gdBEEoXDauGFSwXfUg cZ1lGdQcoqOhIT88KOYpnmT sl5OifBmhdzPzJQDzOVH9Me 2nhAFsJSUnjsZmDBRiOBM8C UFVWF6ZCp6iMJygYFJqbOZb YQDtLDZoI0VjzsOySAOxEUS lQZegLyAhWNCxl1o0fTM4cI DovAE8wXEmwUbuLM8nsYNiO EKjP0Kjn4xqfsOgmB9qNEPa SG5vQADce2DnMQUtKbDdilF cBBT9ByWfgWyoKLDlWTF7IC NwPmUrfSToVnFfZ59nk0PtN JOvQMhviIerWKRuA3RkxWIf aB11zwBvc7KsLKP9ZXDuNTW ztBuoQESbBnU3CoTQvFSdP0 Gbs6JwYSQtojQbxsD7YW7jf g4yfwDsrqYrbZ90JSH0TWQr byBzdWJjYXBzdWxhciBsYWN dhbH9dT6oECywQHicQG00dJ FrUEZwPMDhADVvdQOua6WfC mYzQUIbeXTdsGR3fnNhVRVj MH3pxf07edgouT9ix0cumnC wrNLuFP0eCAKlakOiCQHvSP TkZTZgFBVmaqYhhS1gTqLQk xUgUSMnXERtKBPiABvsBR75 aWZpZWQuIFxwYXJccGFyIEl wgrUxi7AuRpXgfUPzIUYitO UgLSBjYXBzdWxlXHBhclxwY NRbE8HdqCxokfKmz6ZcUhRm cGFyIEIxLCBmdWxsLXRoaWN laoQvgmZyFNE6xF7lMHLwrI A0kIJwsE5coIxtNHSlmSQzK 9ucUERdwxYGFasgfXIaLA8z wRufPSC8naJynCympnXyQBR lfI0ngTZqSRVprz3= MICROSCOPIC g4aukDNgPIOnyNYnLzTjCOT DESCRIPTION (test code sKUWdv4niUMJqhRVrIySkQq = 3371) NcZnRuYmpcdWMxXGRlZmYwe 6liu594eBCzj6twMITxYvG0 xHDwNBWgiMRzZ073r4nim1p foeMdpXR8JLFjWIP6XZwzhb GzwsU6SEpstYKeBhF4YJila aNyUBgmzvCcsnPaPtn8VQLm B008AXU3hAxly9tnQBF8YUJ gJMJvEhPpNb1wsBYcF760SP FsTXZJFXScsHj1RFBtzxCln xFinDFIl113H331n5qhOABv kpOllXsXtazgw6mmG896WGM hcGVydzEyMjQwXHBhcGVyaD J3BZSkCU8rlbfsNaEzKM3yu sxdGhDvVS0aoqp7DnTxAP0u cmdiNzIwXGhlYWRlcnkwXGZ hg5PanmreKJ9oM3Opi5U5eM 9maXRcZGVmdGFiNzIwXGZvc x5yoUXwBSgon5VeCKV1izP7 pDVhxSMjJQDpSJ86Tuxgj0H qYxwfIWJ6RUVactUwr7Zvj1 arBdKyppLnW8bnM2QzFWZgZ KIxWRRjRwMdocFee9Eov5Zc hIVgnOq0s8xgKATlLKVxuSm kw5tiEBV1AVVsJ3B3lRKfe1 niOLonTKDxkQR1nykxBLjmV GYwnxU3dzxdMAhrQSGowMR0 ntxdVYbdHPBrDgR5hozgHQg iRGEoSTD9SWqxy990VET5OS xzYmtwYWdlXHBnbmNvbnRcc GduZGVjXHBsYWluXHBsYWlu XGYwXGZzMjRccWxccGxhaW5 mDgVjByNoFJzjCV4uTKBmB6 gjwKKvLUJwGUOvM5krSiGjk S7zcCkuQBeppcFeNOFixcPu vn3aOXLhkYFoxS== [facility] [id number] 16:34:00Surgical Pathology Report Case: [id number] Authorizing Provider: Marc Clark MD Collected: 10/17/2019 04:26 PM Ordering Location: [facility] Received: 10/20/2019 08:32 AM SERVICES Pathologist: Carmina Grewal MD Specimens: A) - Gallbladder B) -Spleen A. GALLBLADDER, CHOLECYSTECTOMY: - CHRONIC CHOLECYSTITIS AND CHOLESTEROLOSIS - NO GALLSTONE PRESENTB. SPLEEN, SPLENECTOMY: - WEIGHT: 272 GM - SPLENOMEGALY - MILD VASCULAR CONGESTION, NO SIGNIFICANT PATHOLOGIC ABNORMALITY - NEGATIVE FOR MALIGNANCY OR LYMPHOMACC/pl Signing Pathologist Direct Phone Line: [phone] signed by Carmina Grewal MD on 10/22/2019 at 4:34 [id number]; [id number] diagnosis: Chronic pancreatitis, unspecified pancreatitis type and [...] velvety. The wall thickness is 0.2 cm. Type Rolling Machine Operator sections are submitted in cassette A1-A2. [...] to hilar marginB2, parenchymato hilar marginPerformedPOCT- GLUCOSE [id number] 15:47:00 Test Item Value Reference Range Interpretation Comments POC-GLUCOSE METER 91 mg/dL 70-110 : TESTED A T [facility] [address] (Eventyard) (test code = [place], 1538) [address]: 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 ID = [id number] for ANDRÉS VOGEL [facility] POCT-GLUCOSE [id number] 12:25:00 Test Item Value Reference Range Interpretation Comments POC-GLUCOSE METER 101 mg/dL 70-110 : TESTED A T [facility] [address] (BEAKER) (test code = [place], 1538) [address]: 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 ID = [id number] for VIKA COOPER [facility] BASIC METABOLIC [id number] 10:59:00 Test Item Value Reference Range Interpretation [...] S NOT APPLICABLE FOR DIALYSIS PATIEN TS. Sawmill Hand ID - SOTERO [id number] 10:54:00 Test Item Value Reference Range Interpretation Comments PHOSPHORUS (BEAKER) (test code = 4.6 mg/dL 2.3-4.7 604) Sawmill Hand ID - SOTERO [id number] 10:54:00 Test Item Value Reference Range Interpretation Comments MAGNESIUM (BEAKER) (test code = 1.5 mg/dL 1.6-2.6 L 627) Sawmill Hand ID - SOTERO MPOCT-GLUCOSE [id number] 07:03:00 Test Item Value Reference Range Interpretation Comments POC-GLUCOSE METER 177 mg/dL 70-110 H : Pt. refu sed rpt tst: (BEAKER) (test code = TESTED AT [facility] 67[address] 1538) [place], [address]: 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 ID = [id number] for ERIC SANFORD [id number] 06:53:00 Test Item Value Reference Range Interpretation [...] 0-0 (BEAKER) (test code = 413) POCT-GLUCOSE [id number] 06:38:00 Test Item Value Reference Range Interpretation Comments POC-GLUCOSE METER 73 mg/dL 70-110 : TESTED A T [facility] [address] (BEAKER) (test code = [facility], 1538) [address]: 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 ID = [id number] for ERIC TURCIOS POCT-GLUCOSE [id number] 23:59:00 Test Item Value Reference Range Interpretation Comments POC-GLUCOSE METER 87 mg/dL 70-110 : TESTED A T [facility] [address] (BEAKER) (test code = [facility], 1538) [address]: 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 ID = [id number] for ERIC TURCIOS POCT-GLUCOSE [id number] 18:51:00 Test Item Value Reference Range Interpretation Comments POC-GLUCOSE METER 80 mg/dL 70-110 : TESTED A T [facility] 6720 (BEAKER) (test code = [facility], 1538) [address]: 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 ID = [id number] for Noemi Vivar Amylase Peritoneal [id number] 15:15:00 Test Item Value Reference Range Interpretation Comments AMYLASE, PERITONEAL 9 U/L See Comment FLUID (test code = 2877470) ABAD (test code = Amylase activity in ABAD) peritoneal fluids of non-pancreatic origin is often less than or equal to the amylase activity in blood, whereas elevated amylase activity has been reported in fluid of pancreatic origin (five-folds or higher compared to contemporaneously collected blood specimen).This test has been modified from the string cutter's instructions and its performance characteristics were determined by [facility]. The laboratory is regulated under CLIA as qualified to perform high-complexity testing. This test has not been cleared or approved by the U.S. Food and Drug Administration. The reference intervals and other method performance specifications are unavailable for amylase in peritoneal fluid. Comparison of this result with the blood amylase is recommended. Sawmill Hand ID - ENOC SERRANO [facility]AL [id number] 15:15:00 Test Item Value Reference Range Interpretation Comments AMYLASE, PERITONEAL FLUID (test code = 9 U/L See Comment [id number]) Amylase activity in peritoneal fluids of non-pancreatic origin is often less than or equal to the amylase activity in blood, whereas elevated amylase activity has been reported in fluid of pancreatic origin (five-folds or higher compared to contemporaneously collected blood specimen).This test has been modified from the string cutter's instructions and its performance characteristics were determined by [facility]. The laboratory is regulated under CLIA as qualified to perform high-complexity testing. This test has not been cleared or approved by the U.S. Food and Drug Administration. The reference intervals and other method performance specifications are unavailable for amylase in peritoneal fluid. Comparison of this result with the blood amylase is recommended.Sawmill Hand ID - HANIANGAMYLASE PERITONEAL [id number] 15:15:00 Test Item Value Reference Range Interpretation Comments AMYLASE, PERITONEAL FLUID (test code = 15 U/L See Comment [id number]) Amylase activity in peritoneal fluids of non-pancreatic origin is often less than or equal to the amylase activity in blood, whereas elevated amylase activity has been reported in fluid of pancreatic origin (five-folds or higher compared to contemporaneously collected blood specimen).This test has been modified from the string cutter's instructions and its performance characteristics were determined by [facility]. The laboratory is regulated under CLIA as qualified to perform high-complexity testing. This test has not been cleared or approved by the U.S. Food and Drug Administration. The reference intervals and other method performance specifications are unavailable for amylase in peritoneal fluid. Comparison of this result with the blood amylase is recommended.Sawmill Hand ID - ROSIANGMAGNESIUM 2019-10-21 14:08:00 Test Item Value Reference Range Interpretation Comments MAGNESIUM (BEAKER) 1.7 mg/dL 1.6-2.6 Specimen moderately (test code = 627) hemolyzed Sawmill Hand ID - [id number] 14:08:00 Test Item Value Reference Range Interpretation Comments PHOSPHORUS (BEAKER) 4.1 mg/dL 2.3-4.7 Specimen moderately (test code = 604) hemolyzed Sawmill Hand ID - ROSIANGBASIC METABOLIC [id number] 14:08:00 Test Item Value Reference Range Interpretation [...] S NOT APPLICABLE FOR DIALYSIS PATIEN TS. Sawmill Hand ID - ROSIANGSARS-COV2/RT-PCR ([facility])2019-10-21 13:42:00 Test Item Value Reference Range Interpretation Comments SARS-COV2/RT-PCR (test Negative Not Detected, Negative, code = 9580902) See external report for linked test SARS-COV-2 PERFORMING LAB [facility] (test code = 1607986) Negative result for this test determines that [...] 564(g) of the Act.Fact Sheet for Healthcare Providers:https://www.[employer]/sites/default/files/product/documents/Fact_Shee h_YP_Dxgbutbzu_Rlhp_RMZD-YjU-4.pdfFact Sheet for Healthcare Patients:https://www.[employer]/sites/default/files/product/ documents/Mtfc_Wxrot_Oekwhxci_Uzyc_IRTB-TqO-3.pdfPerforming Laboratory:[facility], [place] [address]PVDJ-AFJPSNY METER 2019-10-21 12:41:00 Test Item Value Reference Range Interpretation Comments POC-GLUCOSE METER 99 mg/dL 70-110 : TESTED A T [facility] 6720 (TAI) (test code = CHANTE Cade [facility], 1538) [address]: 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 ID = [id number] for JONATHAN JENKINS PT/[id number] 10:39:00 Test Item Value Reference Range Interpretation [...] CELLS (BEAKER) (test code = 413) POCT-GLUCOSE [id number] 07:09:00 Test Item Value Reference Range Interpretation Comments POC-GLUCOSE METER 155 mg/dL 70-110 H : TESTED A T [facility] 6720 (BEAKER) (test code = [facility], 1538) 29640: 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 ID = [id number] for UE MAXIME, PROSPER POCT-GLUCOSE [id number] 06:41:00 Test Item Value Reference Range Interpretation Comments POC-GLUCOSE METER 66 mg/dL 70-110 L : TESTED A T [facility] 6720 (BEAKER) (test code = [facility], 1538) 095[address]: 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 ID = [id number] for UEMA RU, PROSPER POCT-GLUCOSE [id number] 06:13:00 Test Item Value Reference Range Interpretation Comments POC-GLUCOSE METER 66 mg/dL 70-110 L : TESTED A T [facility] 6720 (BEAKER) (test code = [facility], [facility]8) [address]: 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 ID = [id number] for UEMA RU, PROSPER POCT-GLUCOSE [id number] 00:20:00 Test Item Value Reference Range Interpretation Comments POC-GLUCOSE METER 75 mg/dL 70-110 : TESTED A T [facility] 6720 (BEAKER) (test code = [facility], [facility]8) 63867: 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 ID = [id number] for UEMA RU, PROSPER POCT-GLUCOSE [id number] 17:58:00 Test Item Value Reference Range Interpretation Comments POC-GLUCOSE METER 81 mg/dL 70-110 : TESTED A T [facility] 6720 ([facility]) (test code = [facility], [facility]) [address]: 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 ID = [id number] for Cb, Noemi POCT-GLUCOSE [id number] 11:56:00 Test Item Value Reference Range Interpretation Comments POC-GLUCOSE METER 87 mg/dL 70-110 : Notified RN/MD: TESTED ([facility]) ([facility] [address] [place] [address]) [facility], 770 30: 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 ID = [id number] for Simm ons, Anna POCT-GLUCOSE [id number] 07:16:00 Test Item Value Reference Range Interpretation Comments POC-GLUCOSE METER 99 mg/dL 70-110 : TESTED A T [facility] 6720 (BEAKER) (test code = [facility], 153) 29849: 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 ID = [id number] for PRINCESS JANET MORGAN BASIC METABOLIC [id number] 04:58:00 Test Item Value Reference Range Interpretation [...] S NOT APPLICABLE FOR DIALYSIS PATIEN TS. Sawmill Hand ID - JESUS [id number] 04:33:00 Test Item Value Reference Range Interpretation Comments PHOSPHORUS (BEAKER) (test code = 3.3 mg/dL 2.3-4.7 604) Sawmill Hand ID - STEWARTARI [id number] 04:33:00 Test Item Value Reference Range Interpretation Comments MAGNESIUM (BEAKER) (test code = 1.8 mg/dL 1.6-2.6 627) Sawmill Hand ID - JESUS LCBC (HEMOGRAM ONLY)2019-10-20 04:24:00 [...] WBC 0-0 (BEAKER) (test code = 413) [id number] 04:11:00 Test Item Value Reference Range Interpretation [...] is2.5-3.5 for patients wiht mechanical heart valves.POCT-GLUCOSE [id number] 00:29:00 Test Item Value Reference Range Interpretation Comments POC-GLUCOSE METER 91 mg/dL 70-110 : TESTED A T [facility] 6720 ([employer]) (test code = [employer] [facility], 1538) [address]: 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 ID = [id number] for BARB BENNETT IGG SUBCLASS-4 [id number] 21:18:00 Test Item Value Reference Range Interpretation Comments Igg 4 (test code = 64.5 mg/dL 4-86 20190419) ABAD (test code = Performing Lab EZ ABAD) [facility] [address] [place] [address] Parker Herman MD, PhD, VENKATA [facility] [id number] 17:40:00 Test Item Value Reference Range Interpretation Comments POC-GLUCOSE METER 91 mg/dL 70-110 : TESTED A T [facility] 6720 (BEAKER) (test code = [facility] [employer] [facility], 1538) 73184: 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 ID = [id number] for JOSY WILL [id number] 17:22:00 Test Item Value Reference Range Interpretation Comments MAGNESIUM (BEAKER) (test code = 1.7 mg/dL 1.6-2.6 627) Sawmill Hand ID - KIRA [id number] 17:21:00 Test Item Value Reference Range Interpretation Comments PHOSPHORUS (BEAKER) (test code = 3.2 mg/dL 2.3-4.7 604) Sawmill Hand ID - KIRA CBASIC METABOLIC [id number] 17:08:00 Test Item Value Reference Range Interpretation [...] S NOT APPLICABLE FOR DIALYSIS PATIEN TS. Sawmill Hand ID - KIRA CPOCT-GLUCOSE [id number] 12:50:00 Test Item Value Reference Range Interpretation Comments POC-GLUCOSE METER 136 mg/dL 70-110 H : TESTED A T [facility] 6720 (BEAKER) (test code = [place], 1538) [address]: 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 ID = [id number] for SCAR CASH, IMANI POCT-GLUCOSE [id number] 12:08:00 Test Item Value Reference Range Interpretation Comments POC-GLUCOSE METER 64 mg/dL 70-110 L : Will Rep eat Test: (BEAKER) (test code = Notifi ed RN/MD: TESTED 1538) AT [facility] [address] [facility], 770 30: 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 ID = [id number] for JOSY WILL RAD, CHEST, 1 VIEW, NON [id number] 08:14:00Reason for exam:->s/p intubation, s/p laparotomy, eval [...] Fowler Verified Date/Time: 10/19/2019 08:14:40 Reading Location: [address] Neuro Reading Room POCT-GLUCOSE METER 2019-10-19 06:48:00 Test Item Value Reference Range Interpretation Comments POC-GLUCOSE METER 70 mg/dL 70-110 : TESTED A T [facility] 6720 (BEAKER) (test code = CHANTE Mohamud [facility], 1538) [address]15[address]: 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 ID = [id number] for [place] GRAY PT/[id number] 02:18:00 Test Item Value Reference Range Interpretation [...] INR is2.5-3.5 for patients wiht mechanical heart valves.[id number] 02:03:00 Test Item Value Reference Range Interpretation Comments PHOSPHORUS (BEAKER) (test code = 1.4 mg/dL 2.3-4.7 LL 604) Sawmill Hand ID - SOTERO MBASIC METABOLIC [id number] 02:02:00 Test Item Value Reference Range Interpretation [...] S NOT APPLICABLE FOR DIALYSIS PATIEN TS. Sawmill Hand ID - SOTERO [id number] 01:59:00 Test Item Value Reference Range Interpretation Comments MAGNESIUM (BEAKER) (test code = 1.9 mg/dL 1.6-2.6 627) Sawmill Hand ID - SOTERO MBLOOD GAS, [id number] 01:49:00 Test Item Value Reference Range Interpretation [...] 0-0 (BEAKER) (test code = 413) POCT-GLUCOSE [id number] 00:32:00 Test Item Value Reference Range Interpretation Comments POC-GLUCOSE METER 97 mg/dL 70-110 : TESTED A T [facility] 6720 (BEAKER) (test code = [place] [place], 1538) [address]: 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 ID = [id number] for GOME Z, [place] Prepare [id number] 23:55:00 Test Item Value Reference Range Interpretation Comments CROSSMATCH (test code = 2264) COMPATIBLE Unit ABO (test code = A Pos 8780036) UNIT NUMBER (test code = [id number] 934-0) Status (test code = 5717644) TX_TIMEINCHART Blood Bank Product (test code RED BLOOD CELLS = 2263) PRODUCT CODE (test code = Y4080Q98 933-2) [facility] (HEMOGRAM ONLY)2019-10-18 20:53:00 Test Item Value [...] 0-0 (BEAKER) (test code = 413) POCT-GLUCOSE [id number] 17:27:00 Test Item Value Reference Range Interpretation Comments POC-GLUCOSE METER 99 mg/dL 70-110 : TESTED A T [facility] 6720 (BEAKER) (test code = [place], 1538) [address]: 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 ID = [id number] for JOSY WILL CBC (HEMOGRAM ONLY)2019-10-18 12:31:00 [...] 0-0 (BEAKER) (test code = 413) POCT-GLUCOSE [id number] 12:12:00 Test Item Value Reference Range Interpretation Comments POC-GLUCOSE METER 111 mg/dL 70-110 H : TESTED A T [facility] 6720 (BEAKER) (test code = CHANTE Mohamud [facility], 1538) [address]: 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 ID = [id number] for JOSY JEFF BLOOD GAS, [id number] 05:05:00 Test Item Value Reference Range Interpretation [...] code = 1819) 40.0 % BASIC METABOLIC [id number] 04:56:00 Test Item Value Reference Range Interpretation [...] S NOT APPLICABLE FOR DIALYSIS PATIEN TS. Sawmill Hand ID - SOTERO [id number] 04:55:00 Test Item Value Reference Range Interpretation Comments PHOSPHORUS (BEAKER) (test code = 3.8 mg/dL 2.3-4.7 604) Sawmill Hand ID - SOTERO [id number] 04:55:00 Test Item Value Reference Range Interpretation Comments MAGNESIUM (BEAKER) (test code = 1.5 mg/dL 1.6-2.6 L 627) Sawmill Hand ID - SOTERO [id number] 04:44:00 Test Item Value Reference Range Interpretation [...] = 413) RAD, CHEST, 1 VIEW, NON [id number] 03:59:00Reason for exam:->s/p intubation, s/p laparotomyShould this [...] MDReport Verified Date/Time: 10/18/2019 03:59:10 BLOOD GAS, [id number] 01:36:00 Test Item Value Reference Range Interpretation [...] (test code = 1819) 40.0 % POCT-GLUCOSE [id number] 00:54:00 Test Item Value Reference Range Interpretation Comments POC-GLUCOSE METER 152 mg/dL 70-110 H : TESTED A T [facility] 6720 (BEAKER) (test code = [place], 1538) [address]: 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 ID = [id number] for Shasta Olmedo BASIC METABOLIC [id number] 23:38:00 Test Item Value Reference Range Interpretation [...] S NOT APPLICABLE FOR DIALYSIS PATIEN TS. Sawmill Hand ID - [id number] 22:52:00 Test Item Value Reference Range Interpretation Comments MAGNESIUM (BEAKER) 1.7 mg/dL 1.6-2.6 Specimen slightly (test code = 627) hemolyzed Sawmill Hand ID - [id number] 22:52:00 Test Item Value Reference Range Interpretation Comments PHOSPHORUS (BEAKER) 4.3 mg/dL 2.3-4.7 Specimen slightly (test code = 604) hemolyzed Sawmill Hand ID - [id number] 22:51:00 Test Item Value Reference Range Interpretation [...] (BEAKER) (test code = 413) BLOOD GAS, [id number] 22:34:00 Test Item Value Reference Range Interpretation [...] (test code = 1819) 40.0 % Prepare [id number] 21:19:00 Test Item Value Reference Range Interpretation Comments Unit ABO (test code = A Pos 3505441) UNIT NUMBER (test code = [id number] 934-0) Status (test code = RETURNED FROM ISSUE 15100416) Blood Bank Product (test FFP code = 2263) PRODUCT CODE (test code = G5828U98 933-2) [facility] [id number] 21:19:00 Test Item Value Reference Range Interpretation Comments Unit ABO (test code = O Pos 6632442) UNIT NUMBER (test code = [id number] 934-0) Status (test code = RETURNED FROM ISSUE 3762098) Blood Bank Product (test PLATELETS code = 2263) PRODUCT CODE (test code = C3574L46 933-2) [id number] 20:02:00 Test Item Value Reference Range Interpretation Comments PARTIAL THROMBOPLASTIN TIME 38.7 seconds 22.5-36.0 H (BEAKER) (test code = 760) PROTHROMBIN TIME/[id number] 20:01:00 Test Item Value Reference Range Interpretation [...] is2.5-3.5 for patients wiht mechanical heart valves.Calcium, [id number] 19:56:00 Test Item Value Reference Range Interpretation Comments Calcium, Ion (test code = 1994-3) 1.65 mmol/L 1.12-1.27 HH pH, Blood (test code = 11087-0) 7.25 Lab Interpretation (test code = Abnormal 97513-0) [facility] HospitalGlucose-Stat [id number] 19:56:00 Test Item Value Reference Range Interpretation Comments Glucose (test code = 2345-7) 182 mg/dL 70-110 H Lab Interpretation (test code = Abnormal 59334-9) [facility] HospitalCALCIUM, [id number] 19:56:00 Test Item Value Reference Range Interpretation Comments CALCIUM IONIZED (BEAKER) (test 1.65 mmol/L 1.12-1.27 HH code = 698) PH, BLOOD (BEAKER) (test code = 7.25 1810) BLOOD GAS, [id number] 19:56:00 Test Item Value Reference Range Interpretation [...] (test code = 1819) 50.0 % GLUCOSE-STAT [id number] 19:56:00 Test Item Value Reference Range Interpretation Comments GLUCOSE RANDOM (BEAKER) (test code 182 mg/dL 70-110 H = 652) HGB/HCT (H&H)-Stat [id number] 19:55:00 Test Item Value Reference Range Interpretation Comments Hemoglobin (test code = 786-4) 13.9 g/dL 13-16.8 Hematocrit (test code = 4544-3) 41.0 % 40-50 Lab Interpretation (test code = Normal 56679-4) [facility] [id number] 19:55:00 Test Item Value Reference Range Interpretation Comments Sodium (test code = 2951-2) 135 meq/L 136-145 L Lab Interpretation (test code = Abnormal 86377-8) [facility]assium[facility]Stat [id number] 19:55:00 Test Item Value Reference Range Interpretation Comments Potassium (test code = 2823-3) 4.5 meq/L 3.6-5.5 Lab Interpretation (test code = Normal 09961-5) [facility] NA-STAT [id number] 19:55:00 Test Item Value Reference Range Interpretation Comments SODIUM (BEAKER) (test code = 381) 135 meq/L 136-145 L POTASSIUM-STAT [id number] 19:55:00 Test Item Value Reference Range Interpretation Comments POTASSIUM (BEAKER) (test code = 4.5 meq/L 3.6-5.5 379) HGB/HCT (H&H) - STAT [id number] 19:55:00 Test Item Value Reference Range Interpretation Comments HEMOGLOBIN (BEAKER) (test code = 13.9 g/dL 13.0-16.8 410) HEMATOCRIT (BEAKER) (test code = 41.0 % 40.0-50.0 411) CALCIUM, [id number] 19:10:00 Test Item Value Reference Range Interpretation Comments CALCIUM IONIZED (BEAKER) (test 1.00 mmol/L 1.12-1.27 L code = 698) PH, BLOOD (BEAKER) (test code = 7.35 1810) BLOOD GAS, [id number] 19:09:00 Test Item Value Reference Range Interpretation [...] (test code = 1819) 50.0 % GLUCOSE-STAT [id number] 19:09:00 Test Item Value Reference Range Interpretation Comments GLUCOSE RANDOM (BEAKER) (test code 146 mg/dL 70-110 H = 652) HGB/HCT (H&H) - STAT [id number] 19:09:00 Test Item Value Reference Range Interpretation Comments HEMOGLOBIN (BEAKER) (test code = 12.0 g/dL 13.0-16.8 L 410) HEMATOCRIT (BEAKER) (test code = 35.0 % 40.0-50.0 L 411) SODIUM NA-STAT [id number] 19:08:00 Test Item Value Reference Range Interpretation Comments SODIUM (BEAKER) (test code = 381) 136 meq/L 136-145 POTASSIUM-STAT [id number] 19:08:00 Test Item Value Reference Range Interpretation Comments POTASSIUM (BEAKER) (test code = 3.8 meq/L 3.6-5.5 379) POTASSIUM-STAT [id number] 17:33:00 Test Item Value Reference Range Interpretation Comments POTASSIUM (BEAKER) (test code = 2.6 meq/L 3.6-5.5 LL 379) HGB/HCT (H&H) - STAT [id number] 17:25:00 Test Item Value Reference Range Interpretation Comments HEMOGLOBIN (BEAKER) (test code = 9.9 g/dL 13.0-16.8 L 410) HEMATOCRIT (BEAKER) (test code = 29.0 % 40.0-50.0 L 411) BLOOD GAS, [id number] 17:24:00 Test Item Value Reference Range Interpretation [...] (test code = 1819) 100.0 % GLUCOSE-STAT [id number] 17:24:00 Test Item Value Reference Range Interpretation Comments GLUCOSE RANDOM (BEAKER) (test code 130 mg/dL 70-110 H = 652) SODIUM NA-STAT [id number] 17:23:00 Test Item Value Reference Range Interpretation Comments SODIUM (BEAKER) (test code = 381) 136 meq/L 136-145 FL, FLUORO, NON-SPECIFIC, UP TO 1 [id number] 17:22:16Reason for exam:->cholangiogramFluoroscopic unit utilized for a procedure performed in the OR. No interpretation was requested. Refer to the operative report for findings. Refer to PACS for patient radiation dose information.FL fluoro non- specific up to 1 [id number] 17:14:00Interface, External Ris In - 10/21/2019 2:43 PM CDTFluoroscopic unit utilized for a procedure performed in the OR. No interpretation was requested. Refer to the operative report for findings. [place] PACS for patient radiation dose information.[facility] HospitalBLOOD GAS, [id number] 15:40:00 Test Item Value Reference Range Interpretation [...] (test code = 1819) 100.0 % POTASSIUM-STAT [id number] 15:40:00 Test Item Value Reference Range Interpretation Comments POTASSIUM (BEAKER) (test code = 3.1 meq/L 3.6-5.5 L 379) HGB/HCT (H&H) - STAT [id number] 15:40:00 Test Item Value Reference Range Interpretation Comments HEMOGLOBIN (BEAKER) (test code = 12.4 g/dL 13.0-16.8 L 410) HEMATOCRIT (BEAKER) (test code = 36.0 % 40.0-50.0 L 411) GLUCOSE-STAT [id number] 15:38:00 Test Item Value Reference Range Interpretation Comments GLUCOSE RANDOM (BEAKER) (test code 108 mg/dL 70-110 = 652) SODIUM NA-STAT [id number] 15:38:00 Test Item Value Reference Range Interpretation Comments SODIUM (BEAKER) (test code = 381) 139 meq/L 136-145 POCT-GLUCOSE [id number] 06:35:00 Test Item Value Reference Range Interpretation Comments POC-GLUCOSE METER 121 mg/dL 70-110 H : TESTED A T [facility] 6720 (BEAKER) (test code = [employer] [place], 1538) [address]: 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 ID = [id number] for CATINA ALTMAN POCT-GLUCOSE [id number] 01:25:00 Test Item Value Reference Range Interpretation Comments POC-GLUCOSE METER 88 mg/dL 70-110 : TESTED A T [facility] 6720 (BEAKER) (test code = [employer] [place], 1538) [address]: 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 ID = [id number] for CATINA VEE CT, [id number] 13:25:003-phase: venous, arterial, and non-conUnlisted Reason for [...] MDReport Verified Date/Time: 10/16/2019 13:25:44 Reading Location: [facility] B1 C013Y CT Body Reading Room CT abdomen/pelvis without & with IV [id number] 13:25:00Interface, External Ris In - 10/16/2019 1:27 [...] MDReport Verified Date/Time: 10/16/2019 13:25:44 Reading Location: [facility] B1 C013Y CT Body Reading Room [facility] POCT-GLUCOSE [id number] 12:59:00 Test Item Value Reference Range Interpretation Comments POC-GLUCOSE METER 148 mg/dL 70-110 H : TESTED A T [facility] 6720 (BEAKER) (test code = CHANTE Mohamud [place], 1538) [address]: 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 ID = [id number] for ANDERS BRADSHAW POCT-GLUCOSE [id number] 12:26:00 Test Item Value Reference Range Interpretation Comments POC-GLUCOSE METER 50 mg/dL 70-110 L : TESTED A T [facility] 6720 (BEAKER) (test code = CHANTE Mohamud [facility], 1538) [address]: 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 ID = [id number] for RODRIGUEZ S, PRATIK Urinalysis w/[id number] 09:32:00 Test Item Value Reference Range Interpretation Comments Color, UA (test code Yellow = 5778-6) Clarity, UA (test Hazy code = 5767-9) Specific Merrick, UA 1.010 1.001-1.035 (test code = 5811-5) pH, UA (test code = 6.5 5.0-8.0 5803-2) Protein, UA (test 20 mg/dL Negative A code = 19205-6) Glucose, UA (test Negative Negative code = 365) Ketones, UA (test 100 mg/dL Negative A code = 2514-8) Bilirubin, UA (test Negative Negative code = 38841-8) Blood, UA (test code Negative Negative = 33543-2) Nitrite, UA (test Negative Negative code = 5802-4) Leukocytes, UA (test Negative Negative code = 5799-2) Urobilinogen, UA 0.2 mg/dL 0.2-1 (test code = 40272-8) RBC, UA (test code = 0 See_Comment [Autom ated 75277-3) message] The system which generated this result transmitted reference range : /HPF. The reference range was not used to interpret this result as normal/abnormal . WBC, UA (test code = 0 See_Comment [Autom ated 5821-4) message] The system which generated this result transmitted reference range : /HPF. The reference range was not used to interpret this result as normal/abnormal . Bacteria, UA (test Occasional code = 32368-2) Mucus (test code = Occasional 8247-9) Squam Epithel, UA <1 See_Comment [Automate d (test code = 92413-5) messag e] The system which generated this result transmitted reference range : /HPF. The reference range was not used to interpret this result as normal/abnormal . Yeast (test code = Few 92880-3) Specimen Source (test code = 2795) ABAD (test code = ABAD) Sawmill Hand ID - [auto]Sawmill Hand ID - moe Lab Interpretation Abnormal (test code = 62684-3) [facility] HXBNBFQGWDI2848-90-37 09:32:00 Test Item Value Reference Range Interpretation [...] 1585) Few SOURCE(BEAKER) (test code = 2795) Sawmill Hand ID - [auto]Sawmill Hand ID - hankPOCT-GLUCOSE [id number] 09:15:00 Test Item Value Reference Range Interpretation Comments POC-GLUCOSE METER 180 mg/dL 70-110 H : TESTED A T [facility] 6720 (BEAKER) (test code = [facility] Cade [facility], 1538) [address]: 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 ID = [id number] for ANDERS BRADSHAW POCT-GLUCOSE [id number] 08:42:00 Test Item Value Reference Range Interpretation Comments POC-GLUCOSE METER 50 mg/dL 70-110 L : TESTED A T [facility] 6720 (BEAKER) (test code = [facility], 1538) [address]: 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 ID = [id number] for AKOSUA GOMES, RITCHEL COMPREHENSIVE METABOLIC [id number] 07:47:00 Test Item Value Reference Range Interpretation [...] S NOT APPLICABLE FOR DIALYSIS PATIEN TS. Sawmill Hand ID - PIAYA LPT/[id number] 06:14:00 Test Item Value Reference Range Interpretation [...] 0-0 (test code = 413) HEPATIC FUNCTION [id number] 14:38:00 Test Item Value Reference Range Interpretation [...] (test code = 11 U/L 6-55 347) Sawmill Hand ID - FEB CBASIC METABOLIC [id number] 14:38:00 Test Item Value Reference Range Interpretation [...] S NOT APPLICABLE FOR DIALYSIS PATIEN TS. Sawmill Hand ID - FEB CSARS-COV2/RT-PCR ([facility])2019-10-14 11:39:00 Test Item Value Reference Range Interpretation Comments SARS-COV2/RT-PCR (test Negative Not Detected, Negative, code = 8599164) See external report for linked test SARS-COV-[address] [facility] ERYN (test code = 6831006) Negative result for this test determines that [...] 564(g) of the Act.Fact Sheet for Healthcare Providers:https://www.CloudLink Techidel.com/sites/default/files/product/documents/Fact_Shee g_BS_Hdrcagjtc_Hlbp_WJUS-NpA-1.pdfFact Sheet for Healthcare Patients:https://www.MyFeelBack.com/sites/default/files/product/ documents/Ixpm_Xaufm_Dyljlscr_Mopx_SNOK-YnU-1.pdfPerforming Laboratory:[facility], [place] [address]LQL, ABDOMEN/KUB, 1 VIEW [id number] 09:37:00Reason for exam:->Eval for persistence of CBD [...] MDReport Verified Date/Time: 10/14/2019 09:37:48 Reading Location: [facility] Diagnostic Imaging Reading Room - [place] [address] XR abdomen / KUB 1 [id number] 09:37:00Interface, External Ris In - 10/14/2019 9:39 [...] Herrmann MDReport Verified Date/Time: 10/14/2019 09:37:48 Reading Location:[facility] Diagnostic Imaging Reading Room - [place] [address] [facility] 09:18:00 Test Item Value Reference Range Interpretation Comments Triglycerides (test 66 mg/dL code = 2571-8) ABAD (test code = ABAD) TRIGLYCERIDE REFERENCE RANGELow Risk <150Borderline Risk 150-199High Risk 200-499Very High Risk >=500Operator ID - KIRA Jacobsen MAGGIE [facility] 09:18:00 Test Item Value Reference Range Interpretation Comments LIPASE (BEAKER) (test code = 749) 390 U/L 8-78 H Sawmill Hand ID - KIRA [id number] 09:18:00 Test Item Value Reference Range Interpretation Comments TRIGLYCERIDES (BEAKER) (test code = 66 mg/dL 540) TRIGLYCERIDE REFERENCE RANGELow Risk <150Borderline Risk 150-199High Risk 200-499Very High Risk>=500Operator ID - KIRA PIZVAZUKCO3111-76-63 08:41:00 Test Item Value Reference Range Interpretation Comments MAGNESIUM (BEAKER) (test code = 1.6 mg/dL 1.6-2.6 627) Sawmill Hand ID - KIRA CBASIC METABOLIC [id number] 08:41:00 Test Item Value Reference Range Interpretation [...] S NOT APPLICABLE FOR DIALYSIS PATIEN TS. Sawmill Hand ID - KIRA CHEPATIC FUNCTION [id number] 08:41:00 Test Item Value Reference Range Interpretation [...] (test code = 14 U/L 6-55 347) Sawmill Hand ID - KIRA CIRON, TIBC, % SAT. (WITHOUT FERRITIN)2019-10-14 08:38:00 Test Item Value Reference Range Interpretation Comments IRON (BEAKER) (test code = 547) 32.0 ug/dL 40.0-160.0 L TOTAL IRON BINDING CAPACITY 214 ug/dL 250-450 L (BEAKER) (test code = 769) IRON % SATURATION (2) (BEAKER) 15 % 20-55 L (test code = 2590) Sawmill Hand ID - KIRA CCBC W/PLT COUNT & AUTO BYQJLSMRJMLF1094-09-21 05:36:00 Test Item Value Reference Range Interpretation [...] 0-1 PERCENT (BEAKER) (test code = 2801) PT/AEXQ1132-35-72 05:24:00 Test Item Value Reference Range Interpretation [...] is2.5-3.5 for patients wiht mechanical heart valves.CHEM MDBUD0015-83-95 10:48:0017 [facility]CHE[facility] TFXDB1538-17-49 10:48:12534Sxnrrnwh HermannCHEM PANEL 2019-08-31 10:48:001MeCHRISTUS [facility] ShorelineannCHEM TCZIE1519-46-85 10:48:000.50[facility]oriar HermannCHEM BSIYD6702-65-90 10:48:84498Cxjmmafc HermannCHEM XDWRG8653-73-78 10:48:003.1[facility] HermannCHEM SYHQB5439-49-06 10:48:03035Oqtdhpae HermannCHEM SOYBQ9456-30-66 10:48:0025[facility] HermannCHEM JFATP1373-52-96 10:48:0014.1 [facility] HermannCHEM BLBDX7351-68-45 10:48:007.4[facility] HermannCHEM PANEL 2019-08-31 10:48:10594Zyopwdgy HermannCHEM INRIB9768-28-90 10:48:54071Uceshkmy CamnizcXPJUQXLSYQ9299-27-90 10:48:005.9[facility] DardwswCWXTQMAQCW3487-81-16 10:48:003.00[facility] GropoflIRYPMEGFGO5560-11-14 10:48:009.1[facility] Nigel ZBZLPYFLCK2286-46-38 10:48:0026.4[facility] BrrommaPDUVCVVXXW9126-87-02 10:48:00 88.1[facility] DvlsdlbWJMWTJENOB2397-02-25 10:48:00 Test Item Value Reference Range Interpretation Comments MCH (test code = MCH) 30.2 pg 27.0-31.0 [facility] UdddrxfBLKQNFBNNL1982-42-39 10:48:0034.3[facility] HermannHEMATOLOGY 2019-08-31 10:48:0014.6[facility] OqmlzieUHJONOINEH3809-77-65 10:48:41174Fjfjyylv YfhtfetSPZHQFBZPS8390-49-51 10:48:008.8[facility] OcdkmiiTFADBURSVZ4439-52-20 10:48:0071.9[facility] MguqxofOHGRSHHKTI0205-81-31 10:48:0013.3[facility] MJLLAYGOXI4356-98-81 10:48:0011.1[facility] EzopdtqFINOCVAHMP4927-43-30 10:48:00 3.1[facility] KkoxwgzBPTDQLDOON2092-65-77 10:48:000.6[facility] HermannHEMATOLOGY 2019-08-31 10:48:004.3[facility] SkkbqhvFJOLCTARMB6178-83-91 10:48:000.8[facility] YawgichEHJUDRXMEX6161-25-31 10:48:000.7[facility] FhltiwbXSOSNUNPSG9979-50-57 10:48:000.2[facility] VszcsmhKVVCDTDOYH4935-36-93 10:48:000.0[facility] HermannCHEM BLRAB9965-53-69 10:48:0017Mem[facility] HermannCHEM PSDYO7374-51-64 10:48:91068 [facility] HermannCHEM KVMTF0892-65-23 10:48:001[facility] HermannCHEM PANEL 2019-08-31 10:48:000.50[facility] HermannCHEM EZVVQ6903-48-26 10:48:04725Rnduyaki HermannCHEM BTIIL9026-80-23 10:48:003.1[facility] HermannCHEM RKDJE8409-03-16 10:48:37398Pmehxkza HermannCHEM OUMLU9781-59-35 10:48:0025[facility] HermannCHEM NUCKL0833-83-22 10:48:0014.1[facility] HermannCHEM MGWUR7326-32-31 10:48:007.4 [facility] HermannCHEM FMUVR2023-57-61 10:48:58455Rodjnfnp HermannCHEM PANEL 2019-08-31 10:48:15428Garfonew EbftyumFQADEETTUH2966-36-26 10:48:005.9[facility] EhbenixPAOUOQSFJR1153-52-87 10:48:003.00[facility] JckhyauJXQGRMWAFU7394-23-25 10:48:009.1[facility] ZvcljnwPHUFYHQAFA2359-08-32 10:48:0026.4[facility] JZWGLYSHGD4916-77-76 10:48:0088.1[facility] VwbynpdWYCQEAFJNF9715-46-58 10:48:00 Test Item Value Reference Range Interpretation Comments MCH (test code = MCH) 30.2 pg 27.0-31.0 Memorial XwuklzhGTPLXFIYMC7361-23-05 10:48:0034.3[facility] HermannHEMATOLOGY 2019-08-31 10:48:0014.6[facility] TynjiohVDQGTKUUPS0248-92-44 10:48:15209Nouravqf CeawxooOHVQETCWST0588-85-16 10:48:008.8[facility] PslvvvlBJYCUWWVEY9568-90-91 10:48:0071.9[facility] MhwayszMGJLUYLKKM5855-21-21 10:48:0013.3[facility] ZCKVLBBFFI9074-33-57 10:48:0011.1[facility] WbodmooZWEDGQVAYT8980-42-93 10:48:00 3.1[facility] FjzgcudIYKJAIFQLC7446-97-84 10:48:000.6[facility] HermannHEMATOLOGY 2019-08-31 10:48:004.3[facility] GqwyyepBOJARDWZWI5378-83-77 10:48:000.8[facility] BzolhwjVHJQNVHQKW3339-18-21 10:48:000.7[facility] GxikcgtXIGAUJCVAV9889-12-32 10:48:000.2[facility] TtrmainORINFUZIIO0928-61-35 10:48:000.0[facility] RDKREQKUYQ5639-38-00 09:13:008.5[facility] QxeufpmHCNEMGYGEP9017-74-18 09:13:00 26.2[facility] EuardzgOXCHJWWCLH4295-97-57 09:13:0089.6[facility] HermannHEMATOLOGY 2019-08-30 09:13:00 Test Item Value Reference Range Interpretation Comments MCH (test code = MCH) 29.0 pg 27.0-31.0 [facility] HjyludeATAGYFLHWZ8130-36-88 09:13:0032.4[facility] HermannHEMATOLOGY 2019-08-30 09:13:0015.0[facility] BneappqKHOLJBFNGQ5211-52-57 09:13:55873Svtkxeuq JnoeuooENEQQIOUJH3172-27-21 09:13:008.6[facility] CntlxgbKZQXISOUYI9086-61-31 09:13:0077.2[facility] KvnhxfkLMNBSRTCPV0408-16-58 09:13:0011.4[facility] SSJBYIIKNE8194-21-95 09:13:009.1[facility] XfcatuoDQUQTOMUPV3629-65-53 09:13:001.8 [facility] UgbjuqxYGHUUNOXUX9652-71-26 09:13:000.5[facility] HermannHEMATOLOGY 2019-08-30 09:13:004.7[facility] BrtttjdHNILGEBWUW6209-44-75 09:13:000.7[facility] BplxxadVBUBXMVYHM9613-00-94 09:13:000.6[facility] HbuakvrRUWNCVEQXD1468-02-12 09:13:000.1[facility] HermannCHEM CYYBG0426-90-85 09:13:0057Mem[facility] HermannCHEM VEWSW5000-51-36 09:13:002[facility] HermannCHEM IZSDS9140-84-01 09:13:000.40 [facility] HermannCHEM CSJNW3687-25-72 09:13:48051Lvagqrgl HermannCHEM PANEL 2019-08-30 09:13:003.5[facility] HermannCHEM MDEXQ1682-21-30 09:13:54452Hnqirswk HermannCHEM VVWIG0103-93-24 09:13:0022[facility] HermannCHEM MHPIO6454-94-12 09:13:007.7[facility] HermannCHEM DXHLR6734-11-75 09:13:0015.5[facility] HermannCHEM IGEFW5148-72-25 09:13:87658Edqnroqd HermannCHEM KWPXL6753-46-47 09:13:00 <0.05[facility] HbmrtqtPINUVAJEAI1116-61-20 09:13:006.2[facility] CMDKQZFNFJ8127-85-16 09:13:002.92[facility] GggcuytZSWJTBABVF0356-74-14 09:13:00 8.5[facility] PahixufUGBWCUIZJD8878-10-96 09:13:0026.2[facility] HermannHEMATOLOGY 2019-08-30 09:13:0089.6[facility] QckpjdpZXVMZVXOGU0906-75-12 09:13:00 Test Item Value Reference Range Interpretation Comments MCH (test code = MCH) 29.0 pg 27.0-31.0 [facility] UvquxueROAXLTDJTK4157-86-43 09:13:0032.4[facility] HermannHEMATOLOGY 2019-08-30 09:13:0015.0[facility] LtmdjxkCQPMHNGTJJ1280-27-11 09:13:70051Bcrdcroh MfcyyerTMVKZOSBVA0569-58-86 09:13:008.6[facility] AfjomhxONUOSJIQSE1298-53-54 09:13:0077.2[facility] ObgcmaoROCPXLLKWP2128-57-99 09:13:0011.4[facility] JFKCHMHFJW5758-27-61 09:13:009.1[facility] RdwgiqoDAZYWUEPNI8029-58-29 09:13:001.8 [facility] OcpqjldLGZHUYIBWM7630-60-06 09:13:000.5[facility] HermannHEMATOLOGY 2019-08-30 09:13:004.7[facility] HhkijfeCEBYCDYDYY3775-39-12 09:13:000.7[facility] KvqdvsbTLQVNYGCSX0367-72-36 09:13:000.6[facility] BffizscZRGYQACKCV3008-18-09 09:13:000.1[facility] HermannCHEM CTCQE7519-91-57 09:13:0057[facility] HermannCHEM UBDFL6333-96-11 09:13:002[facility] HermannCHEM VIEXY2720-80-91 09:13:000.40 [facility] HermannCHEM FRBVU5184-11-23 09:13:76319Euknlmjz HermannCHEM PANEL 2019-08-30 09:13:003.5[facility] HermannCHEM BHKFM3323-27-74 09:13:85745Xiwhhhix HermannCHEM XBYEL6575-07-24 09:13:0022[facility] HermannCHEM FJAVE1001-42-70 09:13:007.7[facility] HermannCHEM OVIDL8356-39-53 09:13:0015.5[facility] HermannCHEM KVLWE3704-67-60 09:13:49328Lwjqaddv HermannCHEM EDQHL7175-92-46 09:13:00 <0.05[facility] HnqnxgfUPHBCMDCVW8875-96-91 09:13:006.2[facility] VEYXOSLBNW6531-29-93 09:13:002.92[facility] DkqjfasJRSMLAJRQW3392-88-64 11:29:00 Not Detected (08/29/19 6:29 AM)[facility] PrszqwjRYIAJHMUGN7508-63-76 11:29:00Not Detected (08/29/19 6:29 AM)[facility] HermannCHEM SKGEE4447-51-24 09:30:0071 [facility] HermannCHEM YOABP0392-28-08 09:30:003[facility] HermannCHEM PANEL 2019-08-29 09:30:000.50[facility] HermannCHEM CYJTL4480-84-15 09:30:86041Ecnoetkq HermannCHEM KWAFH1620-63-11 09:30:003.3[facility] HermannCHEM YMFQE5164-39-96 09:30:79494Jriqyiwn HermannCHEM RENHG5813-13-40 09:30:0026[facility] HermannCHEM VIMRA7563-41-24 09:30:008.2[facility] HermannCHEM RLEIE3019-42-98 09:30:0010.3 [facility] HermannCHEM QBADW2415-72-02 09:30:11977Hwpwpbtg HermannHEMATOLOGY 2019-08-29 09:30:005.2[facility] VfflkquTURVSHDCSW6399-95-05 09:30:002.91[facility] TvclofaJAZAAMZLVP8682-05-27 09:30:008.8[facility] OylovfvHVHRTDDXNN6117-86-55 09:30:0025.8[facility] GthxsseHQKWPEKFPD8793-81-94 09:30:0088.8[facility] MGGGOAWCYJ6707-76-32 09:30:00 Test Item Value Reference Range Interpretation Comments MCH (test code = MCH) 30.3 pg 27.0-31.0 [facility] PvwpfijVQCJMHWBBF1987-66-47 09:30:0034.1[facility] HermannHEMATOLOGY 2019-08-29 09:30:0014.4[facility] VqisvpuFFQHGNWMBS1768-80-19 09:30:75410Nvhoqijx NtxltylBRTFTAAFXL1655-12-45 09:30:008.6[facility] HoovamwROCVILDDZP1923-81-76 09:30:00Normal (08/29/19 4:30 AM)[facility] ZnhryftQZBPALGDOX3384-48-13 09:30:00 Normal (7/24/20 4:30 AM)[facility] HihhcvbYZJRLTWYFT6866-27-40 09:30:0070.7 [facility] YqbrxssSZBQJYBMQM8118-28-64 09:30:0017.3[facility] HermannHEMATOLOGY 2019-08-29 09:30:0010.4[facility] WecthyyNRVPHEKMBF9346-64-19 09:30:001.0[facility] ZerblrwMPRRQOBELN0357-80-35 09:30:000.6[facility] JiugbhsDRSAMKMPQH7267-02-00 09:30:003.6[facility] KhhxibeKLJHJLRSTK6225-08-98 09:30:000.9[facility] JHCOQTMZZV3856-57-55 09:30:000.5[facility] OlejoihRCQKJQLWSQ6991-44-39 09:30:000.1 [facility] HermannCHEM CKTZB5069-25-92 09:30:0071[facility] HermannCHEM PANEL 2019-08-29 09:30:003[facility] HermannCHEM OXUMT8248-20-91 09:30:000.50[facility] HermannCHEM KNLQM8894-07-01 09:30:24190Lczbikdr HermannCHEM DLSOO8369-55-27 09:30:003.3[facility] HermannCHEM NKYQV9245-58-17 09:30:69471Ocoutiyy HermannCHEM RWNBI7309-41-48 09:30:0026[facility] HermannCHEM IGWTM7475-97-50 09:30:008.2 [facility] HermannCHEM HGRWF6254-28-91 09:30:0010.3[facility] HermannCHEM PANEL 2019-08-29 09:30:78020Bfxlsrbz EicuptiPUDVRIVEGG2839-02-08 09:30:005.2[facility] KhtubrrJYACJWKFTB1492-38-39 09:30:002.91[facility] MsvworsGLBQOGVNTO5799-77-27 09:30:008.8[facility] XlwkaxzOLEBWTAJMX3282-69-17 09:30:0025.8[facility] VJEISOEPRJ1000-02-45 09:30:0088.8[facility] PeoixndVQMGXCMGMF5883-30-42 09:30:00 Test Item Value Reference Range Interpretation Comments MCH (test code = MCH) 30.3 pg 27.0-31.0 [facility] GcxzdbnNMTXDGZMJL9878-24-68 09:30:0034.1[facility] HermannHEMATOLOGY 2019-08-29 09:30:0014.4[facility] QrxldogWHBSPAPQGT4295-99-53 09:30:13407Eprquauk ZeksezrXKAXKAWGKZ8267-94-09 09:30:008.6[facility] XdbcezvJMXROHWSVX2497-23-33 09:30:00Normal (08/29/19 4:30 AM)[facility] OmiqvwjTCAAGCQOKO5579-37-46 09:30:00 Normal (08/29/19 4:30 AM)[facility] JhclimcUACDOUAZAF7778-06-12 09:30:0070.7 [facility] IuutbesRSVTUVLTKR1324-92-69 09:30:0017.3[facility] HermannHEMATOLOGY 2019-08-29 09:30:0010.4[facility] WmyubxiZZWSNRTLCI0620-02-69 09:30:001.0[facility] ZnamlhmZAVBGTAXTF3997-15-66 09:30:000.6[facility] WcprkewDEHPCREJQI5005-82-99 09:30:003.6[facility] PztlupcSDGJRUUQKQ3527-32-10 09:30:000.9[facility] TLGKDEARIA0928-50-30 09:30:000.5[facility] NhocodwXXNFAOLSEV6011-15-96 09:30:000.1 [facility]BL[facility] BANK DVBHTTS2326-72-26 10:41:00Product available 4(08/28/19 5:41 AM)[facility] UOGLFMK3743-56-64 10:41:00Product available 4(08/28/19 5:41 AM)[facility]BL[facility] NNXSGRP5371-75-73 08:37:00Negative (08/28/19 3:37 AM)[facility] HermannCHEM KWBZE1828-54-18 08:37:005.1[facility] HermannCHEM TQQFP8962-49-83 08:37:001.2[facility] HermannCHEM EDKZQ7546-55-62 08:37:007[facility] HermannCHEM BOEDH3832-07-80 08:37:0014[facility] HermannCHEM PVVNS1852-69-00 08:37:0088[facility] HermannCHEM JVXWH0849-28-19 08:37:000.3 [facility] HermannCHEM VETUP3941-51-20 08:37:00 Test Item Value Reference Range Interpretation Comments B/C Ratio (test code = B/C Ratio) 12 1 6-25 [facility] HermannCHEM OKYJI7692-45-02 08:37:003.9[facility] HermannCHEM PANEL 2019-08-28 08:37:00 Test Item Value Reference Range Interpretation Comments A/G Ratio (test code = A/G Ratio) 0.3 1 0.7-1.6 [facility] LztfncrTHYJKEVTTI1780-18-69 08:37:00 Test Item Value Reference Range Interpretation Comments PT (test code = PT) 17.3 s 12.0-14.7 [facility] QmmulgeRVEJRBAGHY3073-77-94 08:37:00 Test Item Value Reference Range Interpretation Comments INR (test code = INR) 1.40 1 0.85-1.17 [facility] DddpakeSUTOCWYNOX3323-28-83 08:37:00 Test Item Value Reference Range Interpretation Comments PTT (test code = PTT) 45.5 s 22.9-35.8 [facility] QhlnnppLVIMRIAHAT8698-36-30 08:37:00Normal (08/28/19 3:37 AM)[facility] EsytevdIABPEVUFJU1316-94-12 08:37:00Normal (08/28/19 3:37 AM)[facility] TVDKNAFWOF0238-43-28 08:37:000.0[facility]annBL[facility] BANK NYVQWIY1254-14-24 08:37:00Negative (08/28/19 3:37 AM)[facility] HermannCHEM QQQNZ7827-78-82 08:37:00 5.1[facility] HermannCHEM GHXDM6732-75-31 08:37:001.2[facility] HermannCHEM PANEL 2019-08-28 08:37:007[facility] HermannCHEM FMJIN1939-69-61 08:37:0014[facility] HermannCHEM QPHIK3660-39-79 08:37:0088[facility] HermannCHEM BCJDR5271-78-66 08:37:000.3[facility] HermannCHEM LXFCU5390-10-18 08:37:00 Test Item Value Reference Range Interpretation Comments B/C Ratio (test code = B/C Ratio) 12 1 6-25 [facility] HermannCHEM GCBTS4822-83-02 08:37:003.9[facility] HermannCHEM PANEL 2019-08-28 08:37:00 Test Item Value Reference Range Interpretation Comments A/G Ratio (test code = A/G Ratio) 0.3 1 0.7-1.6 [facility] QnpudsfSRASXOUQVF9524-91-50 08:37:00 Test Item Value Reference Range Interpretation Comments PT (test code = PT) 17.3 s 12.0-14.7 [facility] KlcdvapIWWZPFLTNO0891-94-57 08:37:00 Test Item Value Reference Range Interpretation Comments INR (test code = INR) 1.40 1 0.85-1.17 [facility] DwbjsllSRZGJLLQPF3220-94-62 08:37:00 Test Item Value Reference Range Interpretation Comments PTT (test code = PTT) 45.5 s 22.9-35.8 [facility] PlwzhwlHGZGHBDTAT5093-98-98 08:37:00Normal (08/28/19 3:37 AM)[facility] QuzjbnzQOFANQVGDE2598-42-71 08:37:00Normal (08/28/19 3:37 AM)[facility] IRYZPZYKRQ2158-96-14 08:37:000.0[facility] HermannSARS-COV2/RT-PCR ([facility])2019-08-27 00:51:00 Test Item Value Reference Range Interpretation Comments SARS-COV2/RT-PCR (test Not Detected Not Detected, Negative, code = 0667720) See external report for linked test SARS-COV-[address] [facility] (test code = 2645114) Negative results do not preclude SARS-CoV-2 infection [...] of the Act.Fact Sheet for Healthcare Pro viders:https://www.The Scene/Documents/Xpert%20Xpress%20SARS%20CoV-2/Fact%20Sh eets/302-3802%30VNEL-PDU-7%20HEALTHCARE%20PROVIDERS%20FACT%20SHEET.pdfFact Sheet for Healthcare Patients:https://www.Neolinear/Documents/Xpert%20Xpress%20SARS%20CoV-2/Fact%20Sheets/302-3801%20SARS-COV -2%20PATIENT%20FACT%20SHEET.pdfPerforming Laboratory:[place] [address], [place] [address]CNPNKTEN6517-17-48 17:29:00Medical Cytology Report Case: [id number] Authorizing Provider: Uriah Childs Collected: 02/15/2019 1226 Ordering Location: [address] Received: 02/15/2019 1529 Service Pathologist: Nereyda Causey MD Specimen: Common Bile Duct, Distal bile duct brushing in CRR COMMON BILE DUCT BRUSHING (CYTOSPINS AND CELL BLOCK): - MILDLY ATYPICAL CELLS PRESENT, FAVOR REACTIVE (SEE COMMENT) Signing Pathologist Direct Phone Line: [phone] signed by Nereyda Causey MD on 02/18/2019 at 5:29 PMFew mildly atypical cells are present and with the history of stent, a reactive process is favored. Clinical correlation is recommended.66359, 54736Osszcauy, a localized biliary stricture with upstream dilationCOMMON BILE DUCT QWQZLPLU27 mls in cytorich red; 2 cytospins, cell block (collodion bag)Collected: [id number]: [id number].SatisfactoryB[facility], [facility] of [facility]ology, [address] [place] [address], [facility], Department of [facility], [address] [place] [address], YrpywvK[facility], Department of Pathology, [address] [place] [id number], [id number] 14:54:00 Test Item Value Reference Range Interpretation Comments FERRITIN (BEAKER) (test code = 361) 187 ng/mL 5-275 [facility] [facility] ID - LACOMPREHENSIVE METABOLIC [id number] 14:41:00 Test Item Value Reference Range Interpretation [...] S NOT APPLICABLE FOR DIALYSIS PATIEN TS. [facility] ID - KIRA CSpecimen slightly ictericHEMOGLOBIN AND [id number] 12:27:00 Test Item Value Reference Range Interpretation Comments HEMOGLOBIN (BEAKER) (test code = 9.0 GM/DL 13.7-17.5 L 410) HEMATOCRIT (BEAKER) (test code = 29.6 % 40.1-51.0 L 411) [facility] ID - 6000BASIC METABOLIC [id number] 11:55:00 Test Item Value Reference Range Interpretation [...] S NOT APPLICABLE FOR DIALYSIS PATIEN TS. [facility] ID - mvab11Opkkowly slightly [id number] 09:47:00 Test Item Value Reference Range Interpretation Comments LIPASE (BEAKER) (test code = 749) 72 U/L 6-51 H [facility] ID - ekpa39Rkipoztd slightly ictericIRON, TIBC, % SAT. (WITHOUT FERRITIN)2019-02-17 07:14:00 Test Item Value Reference Range Interpretation Comments IRON (BEAKER) (test code = 547) 15.0 ug/dL 40.0-160.0 L TOTAL IRON BINDING CAPACITY 124 ug/dL 250-450 L (BEAKER) (test code = 769) IRON % SATURATION (2) (BEAKER) 12 % 20-55 L (test code = 2590) [facility] ID - SOTERO MHEMOGLOBIN AND [id number] 06:32:00 Test Item Value Reference Range Interpretation Comments HEMOGLOBIN (BEAKER) (test code = 6.8 GM/DL 13.7-17.5 L 410) HEMATOCRIT (BEAKER) (test code = 22.3 % 40.1-51.0 L 411) [facility] ID - 6000TSH/FREE T4 IF [id number] 05:53:00 Test Item Value Reference Range Interpretation Comments THYROID STIMULATING HORMONE 2.31 uIU/mL 0.35-4.94 (BEAKER) (test code = 772) [facility] ID - SOTERO MVITAMIN B12 AND [id number] 05:53:00 Test Item Value Reference Range Interpretation Comments VITAMIN B12 (BEAKER) (test code = 665 pg/mL 213-816 774) FOLATE (BEAKER) (test code = 362) 12.3 ng/mL >=7.0 [facility] ID - SOTERO MCBC (HEMOGRAM ONLY)2019-02-17 04:42:00 [...] WBC 0-0 (BEAKER) (test code = 413) [id number] 12:25:00 Test Item Value Reference Range Interpretation Comments LIPASE (BEAKER) (test code = 749) 64 U/L 8-78 [facility] ID - [place] FHEMOGLOBIN AND [id number] 10:31:00 Test Item Value Reference Range Interpretation Comments HEMOGLOBIN (BEAKER) (test code = 7.2 GM/DL 13.7-17.5 L 410) HEMATOCRIT (BEAKER) (test code = 24.0 % 40.1-51.0 L 411) [facility] ID - 6000FL, [id number] 09:17:00Reason for exam:->jaundiceFINAL REPORT A fluoroscopic unit was utilized for a procedure performed in the operating room. No interpretation was requested. Please refer to the operative report regarding findings. Please refer to PACS for patient radiation dose information. Signed: Josef Maurer MDReport Verified Date/Time: 02/16/2019 09:17:37 Reading Location: [facility] C013Y CT Body Reading Room CBC (HEMOGRAM ONLY)2019-02-16 07:59:00 Test Item Value Reference [...] (BEAKER) (test code = 413) HEPATIC FUNCTION [id number] 05:15:00 Test Item Value Reference Range Interpretation [...] (test code = 23 U/L 6-55 347) [facility] [facility] ID - [facility] [id number] 05:14:00 Test Item Value Reference Range Interpretation [...] S NOT APPLICABLE FOR DIALYSIS PATIEN TS. [facility] ID - SOTERO MPT/[id number] 04:41:00 Test Item Value Reference Range Interpretation [...] is2.5-3.5 for patients wiht mechanical heart valves.PROTHROMBIN TIME/[id number] 04:40:00 Test Item Value Reference Range Interpretation [...] is2.5-3.5 for patients wiht mechanical heart valves.CYTOLOGY [id number] 17:00:00 Test Item Value Reference Range Interpretation Comments CYTOLOGY RESULT POINTER See Separate Report (BEAKER) (test code = 2629) CBC W/PLT COUNT & AUTO [id number] 12:12:00 Test Item Value Reference Range Interpretation [...] (BEAKER) (test code = 2801) BASIC METABOLIC [id number] 10:22:00 Test Item Value Reference Range Interpretation [...] S NOT APPLICABLE FOR DIALYSIS PATIEN TS. [facility] ID - THUAN FSpecimen slightly ictericHEPATIC FUNCTION PANEL 2019-02-15 10:22:00 [...] (test code = 29 U/L 6-55 347) [facility] ID - THUAN Stokesimefawad slightly ictericPT/[id number] 06:54:00 Test Item Value Reference Range Interpretation [...] is2.5-3.5 for patients wiht mechanical heart valves.PROTHROMBIN TIME/[id number] 06:53:00 Test Item Value Reference Range Interpretation [...] mechanical heart valves.CBC W/PLT COUNT & AUTO [id number] 11:17:00 Test Item Value Reference Range Interpretation [...] to report due WIDTH (BEAKER) (test to [facility] RBC code = 412) population distribution. [...] CONCENTRATION Adequate (CELLAVISION)(BEAKER) (test code = 3438) [facility] ID - Lorenzo Carr comments: Slide comments:HEPATIC [...] (test code = 40 U/L 6-55 347) [facility] ID - NTPSpecimen slightly ictericBASIC METABOLIC [id number] 10:09:00 Test Item Value Reference Range Interpretation [...] S NOT APPLICABLE FOR DIALYSIS PATIEN TS. [facility] ID - NTPSpecimen slightly ictericPT/[id number] 05:20:00 Test Item Value Reference Range Interpretation [...] is2.5-3.5 for patients wiht mechanical heart valves.PROTHROMBIN TIME/[id number] 05:19:00 Test Item Value Reference Range Interpretation [...] wiht mechanical heart valves.WOUND CULTURE + GRAM [id number] 13:08:00 Test Item Value Reference Interpretation Comments [...] (BEAKER) (test code = cocci in pairs 989455) 4+ Skin floraCOMPREHENSIVE METABOLIC [id number] 04:14:00 Test Item Value Reference Range Interpretation [...] TOTAL (test code = ALKP) COMPREHENSIVE METABOLIC [id number] 04:07:00 Test Item Value Reference Range Interpretation [...] Unit/L 50-136 code = ALKP) CBC W/AUTO [id number] 04:05:00 Test Item Value Reference Range Interpretation [...] = NO DIFF/SCN CRITERIA MDIFF) CBC W/AUTO [id number] 18:44:00 Test Item Value Reference Range Interpretation [...] = NO DIFF/SCN CRITERIA MDIFF) BASIC METABOLIC [id number] 07:26:00 Test Item Value Reference Range Interpretation [...] CA) 7.8 MG/DL 8.5-10.1 L CBC W/AUTO [id number] 07:19:00 Test Item Value Reference Range Interpretation [...] DIFF/SCN CRITERIA MDIFF) - CT ABD PELVIS W/[id number] 20:03:00 Name: FAV[place]OLA [place] [facility] : 1990 Age/S: 28 / M [address] Unit #: [id number] Loc: [place] [address] Phys: Ramona Bahena MD Acct: [id number] Dis Date: Status: ADM IN PHONE #: [phone] Exam Date: 09/21/20181912 FAX #: Reason: hx of pa ncreatitis, CBD stent, abd pain, melena EXAMS: CPT: [id number] CT ABD PELVIS W/CONT 96173 Dictation location: [facility]. CT ABDOMEN AND PELVIS WITH [...] [place] : 1990 Age/S: 28 / M [address] Unit #: [id number] Loc: [place] [address] Phys: Ramona Bahena MD Acct: [id number] Dis Date: Status: ADM IN PHONE #: [phone] Exam Date: 09/21/2018 191 FAX #: Reason: hx of pancreatitis, CBD stent, abd pain, melena EXAMS: CPT: [id number] CT ABD PELVIS W/CONT 20267 <Continued> Interval mild thickening involving the sigmoid [...] 2 Signed ReportUA RFLX MICR CULT IF [id number] 19:45:00 Test Item Value Reference Range Interpretation [...] culture: Suprapubic PainUA RFLX MICR CULT IF [id number] 19:37:00 Test Item Value Reference Range Interpretation [...] CLEAN CATCHIndication for culture: Suprapubic PainLACTIC ACID [id number] 19:14:00 Test Item Value Reference Range Interpretation Comments LACTIC ACID POC (test code = 0.57 MMOL/L 0.90-1.70 L LACTP) BASIC METABOLIC [id number] 18:25:00 Test Item Value Reference Range Interpretation [...] CA) 8.6 MG/DL 8.5-10.1 N HEPATIC FUNCTION [id number] 18:25:00 Test Item Value Reference Range Interpretation [...] 160 Unit/L 50-136 H code = ALKP) [id number] 18:25:00 Test Item Value Reference Range Interpretation Comments LIPASE (test code = LIP) 164 Unit/L 114-286 N BASIC METABOLIC [id number] 18:22:00 Test Item Value Reference Range Interpretation [...] CA) 8.6 MG/DL 8.5-10.1 N HEPATIC FUNCTION [id number] 18:22:00 Test Item Value Reference Range Interpretation [...] TOTAL (test Unit/L 50-136 code = ALKP) [id number] 18:22:00 Test Item Value Reference Range Interpretation Comments LIPASE (test code = LIP) 164 Unit/L 114-286 N PROTHROMBIN [id number] 18:17:00 Test Item Value Reference Range Interpretation Comments PT PATIENT (test code = PTP) 15.7 SECONDS 9.3-12.9 H INTERNATIONAL NORMAL RATIO 1.36 INR Unit 0.8-1.2 H (test code = INR) THROMBOPLASTIN TIME [id number] 18:17:00 Test Item Value Reference Range Interpretation Comments THROMBOPLASTIN TIME PARTIAL 39.7 SECONDS 26-35 H (test code = PTT) CBC W/O [id number] 18:08:00 Test Item Value Reference Range Interpretation [...] 7.0-9.6 H MPV) - CT ABD PELVIS [id number] 19:34:00 Name: F[place]OLA [place] [facility] [place] : 1990 Age/S: 28 / M [address] Unit #: [id number] Loc: [place] [address] Phys: Pola Brush MD Acct: [id number] Dis Date: Status: [facility] ER PHONE #: [phone] Exam Date: 09/11/2018 1841 FAX #: Reason: abdominal pain EXAMS: CPT: [id number] CT ABD PELVIS W/CONT 48101 EXAM: CT ABDOMEN AND PELVIS WITH IV [...] 1 Signed Report (CONTINUED) Name: FAVIOLA [place] [facility] : 1990 Age/S: 28 / M [address] Unit #: [id number] Loc: [place] [address] Phys: Pola Brush MD Acct: [id number] Dis Date: Status: REG ER PHONE #: [phone] Exam Date: 09/11/2018 1845 FAX #: Reason: abdominal pain EXAMS: CPT: [id number] CT ABD PELVIS W/CONT 11954 <Continued> are unremarkable. Gastrointestinal: No bowel obstruction [...] (1933) t.SDR.CLW Orig Print D/T: S: 09/11/2018 (193) PAGE 2 Signed ReportUA RFLX MICR CULT IF [id number] 19:30:00 Test Item Value Reference Range Interpretation [...] for culture: Dysuria/FrequencyUA RFLX MICR CULT IF [id number] 19:30:00 Test Item Value Reference Range Interpretation [...] URINE: CLEAN CATCHIndication for culture: Dysuria/FrequencyBASIC METABOLIC [id number] 18:14:00 Test Item Value Reference Range Interpretation [...] CA) 8.4 MG/DL 8.5-10.1 L HEPATIC FUNCTION [id number] 18:14:00 Test Item Value Reference Range Interpretation [...] 168 Unit/L 50-136 H code = ALKP) [id number] 18:14:00 Test Item Value Reference Range Interpretation Comments LIPASE (test code = LIP) 260 Unit/L 114-286 N BASIC METABOLIC [id number] 18:06:00 Test Item Value Reference Range Interpretation [...] CA) 8.4 MG/DL 8.5-10.1 L HEPATIC FUNCTION [id number] 18:06:00 Test Item Value Reference Range Interpretation [...] TOTAL (test code Unit/L 50-136 = ALKP) [id number] 18:06:00 Test Item Value Reference Range Interpretation Comments LIPASE (test code = LIP) Unit/L 114-286 CBC W/AUTO [id number] 18:02:00 Test Item Value Reference Range Interpretation [...] code = NO DIFF/SCN CRITERIA MDIFF) PROTHROMBIN [id number] 18:02:00 Test Item Value Reference Range Interpretation Comments PT PATIENT (test code = PTP) 16.2 SECONDS 9.3-12.9 H INTERNATIONAL NORMAL RATIO 1.40 INR Unit 0.8-1.2 H (test code = INR) THROMBOPLASTIN TIME [id number] 18:02:00 Test Item Value Reference Range Interpretation Comments THROMBOPLASTIN TIME PARTIAL 30.7 SECONDS 26-35 N (test code = PTT) BLOOD [id number] 02:01:00 Test Item Value Reference Range Interpretation Comments CULTURE (BEAKER) (test No growth in 5 days code = 1095) BLOOD [id number] 20:01:00 Test Item Value Reference Range Interpretation Comments CULTURE (BEAKER) (test No growth in 5 days code = 1095) CBC W/PLT COUNT & AUTO [id number] 05:36:00 Test Item Value Reference Range Interpretation [...] PERCENT (BEAKER) (test code = 2801) TISSUE [id number] 15:04:00Surgical Pathology Report Case: [id number] Authorizing Provider: Maliha Gotti MD Collected: 08/29/2018 0932 Ordering Location: [place] [address] ICU Received: 08/29/2018 1318 Pathologist: James Stringer MD Specimen: Polyp, Colon - Transverse, taken by yahaira MCNEAL A TRANSVERSE COLON BIOPSY FOR SUSPECTED POLYP:INFLAMMATORY PSEUDOPOLYP. Signing Pathologist Direct Phone Line: [phone] signed by James Stringer MD on 08/30/2018 at 3:04 PMImmunostains for CMV, HSV1, and HSV2 performed on block A1 are negative.69329, 61102, 78292R3Mxl and postop diagnosis: gastrointestinal hemorrhage, unspecified gastrointestinal hemorrhage type Polyp, colon - tr ansverse Received in formalin labeled with the patient's name, accession number and "polyp, colon - transverse" is a 0.2 cm york soft tissue fragment which is submitted in toto in A1. CG/pl PERFORMED. The interpretation of this case included the use of immunohistochemistry or special stains.BLOCK A1- CMV, HSV1, TQS3Easoiew Slides Examined: In-house known positive controls were evaluated along withthe test tissue. These control slides run alongside of the patients sample show appropriate staining. Internal positive and negative controls when available are evaluated Immunohistochemistry technical testing was performed at [facility], Pathology Laboratory where it was developed [...] perform high complexity clinical laboratory testing.HEMOGLOBIN AND [id number] 12:44:00 Test Item Value Reference Range Interpretation Comments HEMOGLOBIN (BEAKER) (test code = 7.7 GM/DL 13.7-17.5 L 410) HEMATOCRIT (BEAKER) (test code = 25.1 % 40.1-51.0 L 411) BASIC METABOLIC [id number] 07:28:00 Test Item Value Reference Range Interpretation [...] S NOT APPLICABLE FOR DIALYSIS PATIEN TS. [id number] 07:13:00 Test Item Value Reference Range Interpretation Comments PHOSPHORUS (BEAKER) (test code = 3.7 mg/dL 2.3-4.7 604) [id number] 07:13:00 Test Item Value Reference Range Interpretation Comments MAGNESIUM (BEAKER) (test code = 2.0 mg/dL 1.6-2.6 627) HEPATIC FUNCTION [id number] 07:13:00 Test Item Value Reference Range Interpretation [...] 6-55 347) CBC W/PLT COUNT & AUTO [id number] 05:45:00 Test Item Value Reference Range Interpretation [...] 0-1 PERCENT (BEAKER) (test code = 2801) [id number] 06:28:00 Test Item Value Reference Range Interpretation Comments PHOSPHORUS (BEAKER) (test code = 4.0 mg/dL 2.3-4.7 604) [id number] 06:28:00 Test Item Value Reference Range Interpretation Comments MAGNESIUM (BEAKER) (test code = 1.9 mg/dL 1.6-2.6 627) HEPATIC FUNCTION [id number] 06:28:00 Test Item Value Reference Range Interpretation [...] = 7 U/L 6-55 347) BASIC METABOLIC [id number] 06:28:00 Test Item Value Reference Range Interpretation [...] PATIEN TS. CBC W/PLT COUNT & AUTO [id number] 05:15:00 Test Item Value Reference Range Interpretation [...] (BEAKER) (test code = 2801) HEMOGLOBIN AND [id number] 16:50:00 Test Item Value Reference Range Interpretation Comments HEMOGLOBIN (BEAKER) (test code = 7.8 GM/DL 13.7-17.5 L 410) HEMATOCRIT (BEAKER) (test code = 24.5 % 40.1-51.0 L 411) TROPONIN [id number] 07:07:00 Test Item Value Reference Range Interpretation [...] failure, acidosis, acute neurological disease, and persistent tachyarrhythmia.[id number] 07:04:00 Test Item Value Reference Range Interpretation Comments PHOSPHORUS (BEAKER) (test code = 3.0 mg/dL 2.3-4.7 604) [id number] 07:04:00 Test Item Value Reference Range Interpretation Comments MAGNESIUM (BEAKER) (test code = 1.7 mg/dL 1.6-2.6 627) BASIC METABOLIC [id number] 07:04:00 Test Item Value Reference Range Interpretation [...] APPLICABLE FOR DIALYSIS PATIEN TS. LACTIC ACID, [id number] 06:58:00 Test Item Value Reference Range Interpretation Comments LACTATE BLOOD VENOUS (2) (BEAKER) 0.7 mmol/L 0.5-2.2 (test code = 2872) HEMOGLOBIN AND [id number] 06:44:00 Test Item Value Reference Range Interpretation Comments HEMOGLOBIN (BEAKER) (test code = 8.2 GM/DL 13.7-17.5 L 410) HEMATOCRIT (BEAKER) (test code = 25.9 % 40.1-51.0 L 411) CBC W/PLT COUNT & AUTO [id number] 06:44:00 Test Item Value Reference Range Interpretation [...] 0-1 PERCENT (BEAKER) (test code = 2801) [facility] [id number] 00:41:00 Test Item Value Reference Range Interpretation [...] acute neurological disease, and persistent tachyarrhythmia.HEMOGLOBIN AND [id number] 00:22:00 Test Item Value Reference Range Interpretation Comments HEMOGLOBIN (BEAKER) (test code = 5.9 GM/DL 13.7-17.5 LL 410) HEMATOCRIT (BEAKER) (test code = 18.8 % 40.1-51.0 L 411) RAD, CHEST, 1 VIEW, NON [id number] 21:37:00Reason for exam:->r/o pulm edemaShould this be [...] lower lobe subsegmental atelectasis. Signed: Debbie Castillo [facility] Verified Date/Time: 08/27/2018 21:37:05 Reading Location: [facility] C0[facility] Consult Reading Room ALYSIS W/ REFLEX URINE [id number] 20:28:00 Test Item Value Reference Range Interpretation [...] = 1574) Rare SOURCE(BEAKER) (test code = 0083) TROPONIN [id number] 19:29:00 Test Item Value Reference Range Interpretation [...] acute neurological disease, and persistent tachyarrhythmia.COMPREHENSIVE METABOLIC [id number] 19:21:00 Test Item Value Reference Range Interpretation [...] = 382) CO2 (BEAKER) (test 27 meq/L - code = 355) BLOOD UREA NITROGEN 15 [...] S NOT APPLICABLE FOR DIALYSIS PATIEN TS. [id number] 19:09:00 Test Item Value Reference Range Interpretation Comments PHOSPHORUS (BEAKER) (test code = 3.6 mg/dL 2.3-4.7 604) [id number] 19:09:00 Test Item Value Reference Range Interpretation Comments MAGNESIUM (BEAKER) (test code = 1.8 mg/dL 1.6-2.6 627) LACTIC ACID, [id number] 19:03:00 Test Item Value Reference Range Interpretation Comments LACTATE BLOOD VENOUS (2) (BEAKER) 0.9 mmol/L 0.5-2.2 (test code = 2872) PROTHROMBIN [id number] 18:53:00 Test Item Value Reference Range Interpretation [...] INR is2.5-3.5 for patients wiht mechanical heart valves.[id number] 18:53:00 Test Item Value Reference Range Interpretation Comments FIBRINOGEN LEVEL (BEAKER) (test 418 mg/dl 225-434 code = 658) CBC W/PLT COUNT & AUTO [id number] 18:48:00 Test Item Value Reference Range Interpretation [...] (BEAKER) (test code = 2801) HEMOGLOBIN AND [id number] 18:44:00 Test Item Value Reference Range Interpretation Comments HEMOGLOBIN (BEAKER) (test code = 6.3 GM/DL 13.7-17.5 L 410) HEMATOCRIT (BEAKER) (test code = 20.6 % 40.1-51.0 L 411) CBC W/PLT COUNT & AUTO [id number] 07:00:00 Test Item Value Reference Range Interpretation [...] PERCENT (BEAKER) (test code = 2801) CALCIUM, [id number] 06:20:00 Test Item Value Reference Range Interpretation Comments CALCIUM IONIZED (BEAKER) (test 1.01 mmol/L 1.12-1.27 L code = 698) PH, BLOOD (BEAKER) (test code = 7.50 1810) COMPREHENSIVE METABOLIC [id number] 06:16:00 Test Item Value Reference Range Interpretation [...] NOT APPLICABLE FOR DIALYSIS PATIEN TS. BLOOD [id number] 20:01:00 Test Item Value Reference Range Interpretation Comments CULTURE (BEAKER) (test No growth in 5 days code = 1095) [id number] 06:17:00 Test Item Value Reference Range Interpretation Comments PHOSPHORUS (BEAKER) (test code = 3.5 mg/dL 2.3-4.7 604) [id number] 06:17:00 Test Item Value Reference Range Interpretation Comments MAGNESIUM (BEAKER) (test code = 1.3 mg/dL 1.6-2.6 L 627) BASIC METABOLIC [id number] 06:17:00 Test Item Value Reference Range Interpretation [...] NOT APPLICABLE FOR DIALYSIS PATIEN TS. CALCIUM, [id number] 05:40:00 Test Item Value Reference Range Interpretation Comments CALCIUM IONIZED (BEAKER) (test 1.02 mmol/L 1.12-1.27 L code = 698) PH, BLOOD (BEAKER) (test code = 7.50 1810) CBC W/PLT COUNT & AUTO [id number] 05:32:00 Test Item Value Reference Range Interpretation [...] (BEAKER) (test code = 2801) COMPREHENSIVE METABOLIC [id number] 07:10:00 Test Item Value Reference Range Interpretation [...] S NOT APPLICABLE FOR DIALYSIS PATIEN TS. [id number] 06:50:00 Test Item Value Reference Range Interpretation Comments MAGNESIUM (BEAKER) (test code = 1.0 mg/dL 1.6-2.6 LL 627) COMPREHENSIVE METABOLIC [id number] 06:33:00 Test Item Value Reference Range Interpretation [...] S NOT APPLICABLE FOR DIALYSIS PATIEN TS. [id number] 06:31:00 Test Item Value Reference Range Interpretation Comments PHOSPHORUS (BEAKER) (test code = 3.3 mg/dL 2.3-4.7 604) CBC W/PLT COUNT & AUTO [id number] 06:23:00 Test Item Value Reference Range Interpretation [...] (BEAKER) (test code = 2801) LACTIC ACID, [id number] 06:22:00 Test Item Value Reference Range Interpretation Comments LACTATE BLOOD VENOUS (2) (BEAKER) 0.8 mmol/L 0.5-2.2 (test code = 2872) CALCIUM, [id number] 06:18:00 Test Item Value Reference Range Interpretation Comments CALCIUM IONIZED (BEAKER) (test 1.01 mmol/L 1.12-1.27 L code = 698) PH, BLOOD (BEAKER) (test code = 7.46 1810) U/S, ABDOMINAL, [id number] 16:51:00Abdomen limited area? Add comment if clarification [...] MDReport Verified Date/Time: 07/28/2018 16:51:39 Reading Location: [address] Reading Room [id number] 06:56:00 Test Item Value Reference Range Interpretation Comments PHOSPHORUS (BEAKER) (test code = 2.6 mg/dL 2.3-4.7 604) [id number] 06:56:00 Test Item Value Reference Range Interpretation Comments MAGNESIUM (BEAKER) (test code = 1.5 mg/dL 1.6-2.6 L 627) BASIC METABOLIC [id number] 06:56:00 Test Item Value Reference Range Interpretation [...] APPLICABLE FOR DIALYSIS PATIEN TS. LACTIC ACID, [id number] 06:49:00 Test Item Value Reference Range Interpretation Comments LACTATE BLOOD VENOUS (2) (BEAKER) 0.7 mmol/L 0.5-2.2 (test code = 2872) CBC W/PLT COUNT & AUTO [id number] 06:31:00 Test Item Value Reference Range Interpretation [...] 0-1 PERCENT (BEAKER) (test code = 2801) [id number] 17:59:00 Test Item Value Reference Range Interpretation Comments PHOSPHORUS (BEAKER) (test code = 3.4 mg/dL 2.3-4.7 604) Check Serum Phosphorus level 4 hours after IV phosphorus replacement or 8 hours after PO replacementcompleted.[id number] 17:59:00 Test Item Value Reference Range Interpretation Comments MAGNESIUM (BEAKER) (test code = 1.7 mg/dL 1.6-2.6 627) Check Serum Phosphorus level 4 hours after IV phosphorus replacement or 8 hours after PO replacementcompleted.[id number] 04:50:00 Test Item Value Reference Range Interpretation Comments PHOSPHORUS (BEAKER) (test code = 1.8 mg/dL 2.3-4.7 L 604) [id number] 04:50:00 Test Item Value Reference Range Interpretation Comments MAGNESIUM (BEAKER) (test code = 1.4 mg/dL 1.6-2.6 L 627) BASIC METABOLIC [id number] 04:50:00 Test Item Value Reference Range Interpretation [...] PATIEN TS. CBC W/PLT COUNT & AUTO [id number] 04:45:00 Test Item Value Reference Range Interpretation [...] PERCENT (BEAKER) (test code = 2801) FL, [id number] 22:28:00Reason for exam:->bile duct stent removalFINAL REPORT Examination: ERCP 4 fluoroscopic spot views were obtained during the procedure by the ordering service. Images are nondiagnostic as no radiologist was present at the time of imaging. Fluoroscopic time was 49.6 seconds. Please see the procedure report for details. Signed: Rosalia Golden MDReport Verified Date/Time: 07/26/2018 22:28:43 Reading Location: [address] Reading Room POCT-GLUCOSE [id number] 20:43:00 Test Item Value Reference Range Interpretation Comments POC-GLUCOSE METER 146 mg/dL 70-[address] [facility] 6720 (BEAKER) (test code = [place] 1538) [address] RAPID STREP A [id number] 18:22:00 Test Item Value Reference Range Interpretation Comments STREP A ANTIGEN (BEAKER) (test code Negative = 556) COMPREHENSIVE METABOLIC [id number] 17:37:00 Test Item Value Reference Range Interpretation [...] PATIEN TS. CBC W/PLT COUNT & AUTO [id number] 17:16:00 Test Item Value Reference Range Interpretation [...] PERCENT (BEAKER) (test code = 2801) POCT-GLUCOSE [id number] 12:06:00 Test Item Value Reference Range Interpretation Comments POC-GLUCOSE METER 132 mg/dL 70-110 H TESTED AT [place] [address] ([facility]) (test code = [facility] 1538) [address] POCT-GLUCOSE [id number] 08:57:00 Test Item Value Reference Range Interpretation Comments POC-GLUCOSE METER 80 mg/dL 70-110 TESTED AT [place] [address] ([facility]) (test code = [facility] [address]) BASIC METABOLIC [id number] 06:35:00 Test Item Value Reference Range Interpretation [...] NOT APPLICABLE FOR DIALYSIS PATIEN TS. POCT-GLUCOSE [id number] 22:36:00 Test Item Value Reference Range Interpretation Comments POC-GLUCOSE METER 72 mg/dL 70-110 TESTED AT [place] [address] ([facility]) (test code = [facility] [address]38) POCT-GLUCOSE [id number] 12:21:00 Test Item Value Reference Range Interpretation Comments POC-GLUCOSE METER 82 mg/dL 70-110 TESTED AT [place] [address] ([facility] (test code = CHANTE Mohamud [facility] [address]38) BASIC METABOLIC [id number] 09:30:00 Test Item Value Reference Range Interpretation [...] NOT APPLICABLE FOR DIALYSIS PATIEN TS. POCT-GLUCOSE [id number] 08:42:00 Test Item Value Reference Range Interpretation Comments POC-GLUCOSE METER 85 mg/dL 70-[address] [facility] 6720 ([facility] (test code = [facility] Cade [facility] [address]38) POCT-GLUCOSE [id number] 21:33:00 Test Item Value Reference Range Interpretation Comments POC-GLUCOSE METER 106 mg/dL 70-110 TESTED AT [place] [id number] (BEAKER) (test code = [facility] Cade [facility] 1538) [address] POCT-GLUCOSE [id number] 17:42:00 Test Item Value Reference Range Interpretation Comments POC-GLUCOSE METER 95 mg/dL 70-110 TESTED AT [place] [address] ([facility] (test code = [facility] [address]38) [id number] 14:42:00 Test Item Value Reference Range Interpretation Comments POTASSIUM (BEAKER) 3.7 meq/L 3.5-5.1 Specimen slightly (test code = 379) hemolyzed Check Serum Potassium level 2 hours after oral potassium replacement completed or 30 min after intravenous potassium replacement.POCT-GLUCOSE [id number] 11:45:00 Test Item Value Reference Range Interpretation Comments POC-GLUCOSE METER 151 mg/dL 70-[address] [facility] 6720 (BEAKER) (test code = CHANTE Mohamud [place] 1538) [address] POCT-GLUCOSE [id number] 09:45:00 Test Item Value Reference Range Interpretation Comments POC-GLUCOSE METER 127 mg/dL 70-[address] [facility] 6720 (BEAKER) (test code = CHANTE Moh[place] 1538) [address] BLOOD [id number] 08:00:00 Test Item Value Reference Range Interpretation Comments CULTURE (BEAKER) (test No growth in 5 days code = 1095) BLOOD [id number] 08:00:00 Test Item Value Reference Range Interpretation Comments CULTURE (BEAKER) (test No growth in 5 days code = 1095) BASIC METABOLIC [id number] 06:48:00 Test Item Value Reference Range Interpretation [...] S NOT APPLICABLE FOR DIALYSIS PATIEN TS. [id number] 06:46:00 Test Item Value Reference Range Interpretation Comments PHOSPHORUS (BEAKER) (test code = 3.5 mg/dL 2.3-4.7 604) [id number] 06:46:00 Test Item Value Reference Range Interpretation Comments MAGNESIUM (BEAKER) (test code = 1.7 mg/dL 1.6-2.6 627) CALCIUM, [id number] 06:45:00 Test Item Value Reference Range Interpretation Comments CALCIUM IONIZED (BEAKER) (test 1.00 mmol/L 1.12-1.27 L code = 698) PH, BLOOD (BEAKER) (test code = 7.52 1810) POCT-GLUCOSE [id number] 21:56:00 Test Item Value Reference Range Interpretation Comments POC-GLUCOSE METER 112 mg/dL 70-110 H TESTED AT [place] [address] ([facility]) (test code = [facility] 1538) [address] POCT-GLUCOSE [id number] 17:46:00 Test Item Value Reference Range Interpretation Comments POC-GLUCOSE METER 86 mg/dL 70-110 TESTED AT [place] [address] ([facility]) (test code = [facility] [address] 1538) POCT-GLUCOSE [id number] 11:20:00 Test Item Value Reference Range Interpretation Comments POC-GLUCOSE METER 164 mg/dL 70-110 H TESTED AT [place] [address] ([facility] (test code = [facility] 1538) [id number] POCT-GLUCOSE [id number] 08:57:00 Test Item Value Reference Range Interpretation Comments POC-GLUCOSE METER 88 mg/dL 70-110 TESTED AT [place] [address] ([facility] (test code = [facility] [address] 1538) CALCIUM, [id number] 05:14:00 Test Item Value Reference Range Interpretation Comments CALCIUM IONIZED (BEAKER) (test 1.12 mmol/L 1.12-1.27 code = 698) PH, BLOOD (BEAKER) (test code = 7.43 1810) BASIC METABOLIC [id number] 04:59:00 Test Item Value Reference Range Interpretation [...] S NOT APPLICABLE FOR DIALYSIS PATIEN TS. [id number] 04:57:00 Test Item Value Reference Range Interpretation Comments MAGNESIUM (BEAKER) (test code = 1.8 mg/dL 1.6-2.6 627) [id number] 04:56:00 Test Item Value Reference Range Interpretation Comments PHOSPHORUS (BEAKER) (test code = 3.4 mg/dL 2.3-4.7 604) [id number] 04:54:00 Test Item Value Reference Range Interpretation [...] is2.5-3.5 for patients wiht mechanical heart valves.PROTHROMBIN [id number] 04:52:00 Test Item Value Reference Range Interpretation [...] mechanical heart valves.CBC W/PLT COUNT & AUTO [id number] 04:47:00 Test Item Value Reference Range Interpretation [...] 417) IMMATURE GRANULOCYTES-RELATIVE 1 % 0-1 PERCENT ([facility]) (test code = 2801) POCT-GLUCOSE [id number] 22:08:00 Test Item Value Reference Range Interpretation Comments POC-GLUCOSE METER 133 mg/dL 70-110 H TESTED AT [place] [address] ([facility]) (test code = [facility] Cade [facility] 1538) [address] POCT-GLUCOSE [id number] 18:34:00 Test Item Value Reference Range Interpretation Comments POC-GLUCOSE METER 151 mg/dL 70-110 H TESTED AT [place] [address] ([facility]) (test code = [facility] 1538) [address] POCT-GLUCOSE [id number] 12:29:00 Test Item Value Reference Range Interpretation Comments POC-GLUCOSE METER 124 mg/dL 70-110 H TESTED AT [place] [address] ([facility]) (test code = [facility] 1538) [address] RAD, CHEST, 1 VIEW, NON [id number] 10:57:00Reason for exam:->SOBShould this be performed at [...] MDReport Verified Date/Time: 07/15/2018 10:57:23 Reading Location: [facility] Radiology Reading Room C. DIFFICILE GDH [id number] 10:08:00 Test Item Value Reference Range Interpretation Comments CDT TOXIN (test code Negative Negative = 5320028267) CDT GDH ANTIGEN (test Negative Negative No ind ication of code = [id number]) Clostridi um difficile infection and n o colonization. Discontinue ent sonal isolation and t herapy. Testing performed by [employer] Rapid Cassette Assay. For GDH, published sensitivity of the assay is 98.7% compared to cytotoxicity testing. For Toxin AB, published sensitivity is 87.8% and specificity 99.4% compared to cytotoxicity testing.Verification of kit performance was done by the [facility] Microbiology Lab prior to clinical use.POCT-GLUCOSE [id number] 08:57:00 Test Item Value Reference Range Interpretation Comments POC-GLUCOSE METER 159 mg/dL 70-[address] [facility] 6720 (BEAKER) (test code = [place] 1538) [address] BLOOD [id number] 08:01:00 Test Item Value Reference Range Interpretation Comments CULTURE (BEAKER) (test No growth in 5 days code = 1095) BLOOD [id number] 08:01:00 Test Item Value Reference Range Interpretation Comments CULTURE (BEAKER) (test No growth in 5 days code = 1095) BASIC METABOLIC [id number] 04:49:00 Test Item Value Reference Range Interpretation [...] S NOT APPLICABLE FOR DIALYSIS PATIEN TS. [id number] 04:29:00 Test Item Value Reference Range Interpretation Comments PHOSPHORUS (BEAKER) (test code = 2.7 mg/dL 2.3-4.7 604) [id number] 04:29:00 Test Item Value Reference Range Interpretation Comments MAGNESIUM (BEAKER) (test code = 2.2 mg/dL 1.6-2.6 627) CBC W/PLT COUNT & AUTO [id number] 04:14:00 Test Item Value Reference Range Interpretation [...] PERCENT (BEAKER) (test code = 2801) CALCIUM, [id number] 03:58:00 Test Item Value Reference Range Interpretation Comments CALCIUM IONIZED (BEAKER) (test 1.11 mmol/L 1.12-1.27 L code = 698) PH, BLOOD (BEAKER) (test code = 7.41 1810) POCT-GLUCOSE [id number] 23:20:00 Test Item Value Reference Range Interpretation Comments POC-GLUCOSE METER 208 mg/dL 70-[address] [facility] 6720 (BEAKER) (test code = [place] 1538) [address] BASIC METABOLIC [id number] 18:01:00 Test Item Value Reference Range Interpretation [...] S NOT APPLICABLE FOR DIALYSIS PATIEN TS. [id number] 18:00:00 Test Item Value Reference Range Interpretation Comments TRIGLYCERIDES (BEAKER) (test code = 125 mg/dL 540) TRIGLYCERIDE REFERENCE RANGELow Risk <150Borderline Risk 150-199High Risk 200-499Very High Risk>=[id number] 18:00:00 Test Item Value Reference Range Interpretation Comments MAGNESIUM (BEAKER) (test code = 1.6 mg/dL 1.6-2.6 627) CALCIUM, [id number] 17:46:00 Test Item Value Reference Range Interpretation Comments CALCIUM IONIZED (BEAKER) (test 1.13 mmol/L 1.12-1.27 code = 698) PH, BLOOD (BEAKER) (test code = 7.41 1810) POCT-GLUCOSE [id number] 17:45:00 Test Item Value Reference Range Interpretation Comments POC-GLUCOSE METER 173 mg/dL 70-[address] [facility] 6720 (BEAKER) (test code = [facility] 1538) [address] POCT-GLUCOSE [id number] 11:46:00 Test Item Value Reference Range Interpretation Comments POC-GLUCOSE METER 163 mg/dL 70-110 H TESTED AT [place] [address] ([facility] (test code = [facility] 1538) [address] BASIC METABOLIC [id number] 09:43:00 Test Item Value Reference Range Interpretation [...] APPLICABLE FOR DIALYSIS PATIEN TS. HEPATIC FUNCTION [id number] 09:43:00 Test Item Value Reference Range Interpretation [...] = < U/L 6-55 L 347) CALCIUM, [id number] 09:39:00 Test Item Value Reference Range Interpretation Comments CALCIUM IONIZED (BEAKER) (test 1.07 mmol/L 1.12-1.27 L code = 698) PH, BLOOD (BEAKER) (test code = 7.44 1810) [id number] 09:26:00 Test Item Value Reference Range Interpretation Comments PHOSPHORUS (BEAKER) (test code = 2.3 mg/dL 2.3-4.7 604) [id number] 09:26:00 Test Item Value Reference Range Interpretation Comments MAGNESIUM (BEAKER) (test code = 1.2 mg/dL 1.6-2.6 L 627) CBC W/PLT COUNT & AUTO [id number] 09:07:00 Test Item Value Reference Range Interpretation [...] PERCENT (BEAKER) (test code = 2801) POCT-GLUCOSE [id number] 06:10:00 Test Item Value Reference Range Interpretation Comments POC-GLUCOSE METER 170 mg/dL 70-[address] [facility] 6720 (BEAKER) (test code = [place] 1538) [address] POCT-GLUCOSE [id number] 23:12:00 Test Item Value Reference Range Interpretation Comments POC-GLUCOSE METER 200 mg/dL 70-110 H TESTED AT [place] [address] ([facility]) (test code = [place] 1538) [address] POCT-GLUCOSE [id number] 18:28:00 Test Item Value Reference Range Interpretation Comments POC-GLUCOSE METER 153 mg/dL 70-110 H TESTED AT [place] [address] ([facility]) (test code = CH[facility]TE Moham[place] [facility] 1538) [address] RAD, CHEST, 1 VIEW, NON [id number] 17:19:00Reason for exam:->post central lineShould this be [...] right atrium withno pneumothorax. Signed: Perez Huerta [facility] NETWORK[facility]ort Verified Date/Time: 07/13/2018 17:19:17 Reading Location: [address] Ortho Consult Reading Room POCT- GLUCOSE [id number] 11:45:00 Test Item Value Reference Range Interpretation Comments POC-GLUCOSE METER 214 mg/dL 70-110 H TESTED AT [place] [address] ([facility]) (test code = [facility] [facility] [facility] 1538) [address] CT, [id number] 09:34:00NO PO or IV contrastFINAL REPORT CT [...] Huertaeport Verified Date/Time: 07/13/2018 09:34:48 Reading Location: [address] Consult Reading Room POCT-GLUCOSE [id number] 06:40:00 Test Item Value Reference Range Interpretation Comments POC-GLUCOSE METER 189 mg/dL 70-[address] [facility] 67 ([facility]) (test code = [facility] Mohamud [facility] 1538) [address] RAD, CHEST, 1 VIEW, NON [id number] 01:21:00Reason for exam:->hypoxia, feverShould this be performed [...] upper quadrant pigtail catheter. Signed: Meghan Atkins Verified Date/Time: 07/13/2018 01:21:43 Reading Location: [address] Reading Room RAD, CHEST, 1 VIEW, NON [id number] 00:42:00Reason for exam:- >tachycardiaShould this be performed [...] METER 139 mg/dL 70-[address] [facility] 67 ([facility]) (test code = CH[facility]TE Moham[facility] 1538) [address] POCT-GLUCOSE [id number] 18:37:00 Test Item Value Reference Range Interpretation Comments POC-GLUCOSE METER 108 mg/dL 70-110 TESTED AT [place] [address] ([facility]) (test code = [place] 1538) [address] LACTIC ACID, [id number] 17:04:00 Test Item Value Reference Range Interpretation Comments LACTATE BLOOD VENOUS (2) ([facility]) 0.7 mmol/L 0.5-2.2 (test code = 2872) POCT-GLUCOSE [id number] 13:25:00 Test Item Value Reference Range Interpretation Comments POC-GLUCOSE METER 129 mg/dL 70-110 H TESTED AT [place] [address] ([facility]) (test code = [facility]ANTE Mohamud [facility] 1538) [address] POCT-GLUCOSE [id number] 10:27:00 Test Item Value Reference Range Interpretation Comments POC-GLUCOSE METER 109 mg/dL 70-110 TESTED AT [place] [address] ([facility]) (test code = [facility]TE Mohamud [facility] 1538) [address] LACTIC ACID, [id number] 07:03:00 Test Item Value Reference Range Interpretation Comments LACTATE BLOOD VENOUS 0.9 mmol/L 0.5-2.2 Specime n slightly (2) ([facility]) (test hemolyzed code = 2872) RAD, ABDOMEN/KUB, 1 VIEW [id number] 02:12:00Reason for exam:->UPRIGHT assess for perf; abdomoinal [...] Darden Verified Date/Time: 07/12/2018 02:12:57 POCT-LACTIC ACID, [id number] 02:11:00 Test Item Value Reference Range Interpretation Comments POC-LACTIC ACID, 1.5 mmol/L 0.9-1.7 TESTED AT [place] [address] VENOUS (BEAKER) (test [facility] Cade [facility] code = 2805) [address] [id number] 02:11:00 Test Item Value Reference Range Interpretation Comments POC-GLUCOSE (BEAKER) 106 mg/dL 70-110 TESTED AT [place] [address] (test code = 1855) [facility] [address] POCT-CALCIUM [id number] 02:11:00 Test Item Value Reference Range Interpretation Comments POC-CALCIUM IONIZED 1.15 mmol/L 1.12-1.27 TESTED A T [place] [address] ([facility] (test code = [facility] 1536) [address] [id number] 02:11:00 Test Item Value Reference Range Interpretation Comments POC-HEMATOCRIT 37 % 40-50 L TESTED AT [place] [address] (BEAKER) (test code = [facility] [address] 1857) [id number] 02:11:00 Test Item Value Reference Range Interpretation Comments POC-HEMOGLOBIN 12.6 g/dL 13.0-16.8 L TESTED AT [place] [address] (BEAKER) (test code [facility] = 1856) [address]LIQFHD AT [place] [address] [facility] [address] POCT-BLOOD GASES, [id number] 02:10:00 Test Item Value Reference Range Interpretation Comments TEMP, CELSIUS-POC 38.4 (BEAKER) (test code = 1834) FIO2-POC (BEAKER) 21 TESTED AT [place] [address] (test code = 1835) [facility] [address] PH, VENOUS-POC 7.362 7.320-7.420 (BEAKER) (test code [...] -2.0-3.0 VENOUS-POC (BEAKER) (test code = 1847) [id number] 02:10:00 Test Item Value Reference Range Interpretation Comments POC-SODIUM (BEAKER) 139 meq/L 135-[address] [facility] 6720 (test code = 1542) [place] [address] [id number] 02:10:00 Test Item Value Reference Range Interpretation Comments POC-POTASSIUM 3.7 meq/L 3.6-5.[address] [facility] 6720 (BEAKER) ([place] [address] = 1540) HEPATIC FUNCTION [id number] 02:04:00 Test Item Value Reference Range Interpretation [...] = 8 U/L 6-55 347) BASIC METABOLIC [id number] 02:04:00 Test Item Value Reference Range Interpretation [...] PATIEN TS. CBC W/PLT COUNT & AUTO [id number] 02:03:00 Test Item Value Reference Range Interpretation [...] PERCENT (AKER) (test code = 2801) POCT-GLUCOSE [id number] 00:17:00 Test Item Value Reference Range Interpretation Comments POC-GLUCOSE METER 137 mg/dL 70-110 H TESTED AT [place] [address] ([facility]) (test code = [facility] 1538) [address] POCT-GLUCOSE [id number] 18:14:00 Test Item Value Reference Range Interpretation Comments POC-GLUCOSE METER 106 mg/dL 70-110 TESTED AT [place] [address] ([facility]) (test code = [facility] 1538) [address] VANCOMYCIN LEVEL, [id number] 14:20:00 Test Item Value Reference Range Interpretation Comments VANCOMYCIN TROUGH ([facility]) (test 7.1 ug/mL 10.0-20.0 L code = 522) If vancomycin trough level > 20 mcg/mL, hold next vancomycin dose, and contact MD and pharmacist.POCT-GLUCOSE [id number] 13:10:00 Test Item Value Reference Range Interpretation Comments POC-GLUCOSE METER 155 mg/dL 70-110 H TESTED AT [place] [address] ([facility]) (test code = [facility] 1538) [address] HEPATIC FUNCTION [id number] 06:51:00 Test Item Value Reference Range Interpretation Comments TOTAL PROTEIN ([facility]) (test code = 6.5 gm/dL 6.0-8.3 [...] = 11 U/L 6-55 347) BASIC METABOLIC [id number] 06:51:00 Test Item Value Reference Range Interpretation [...] PATIEN TS. CBC W/PLT COUNT & AUTO [id number] 05:32:00 Test Item Value Reference Range Interpretation [...] 0-1 PERCENT (BEAKER) (test code = 2801) [id number] 11:08:00 Test Item Value Reference Range Interpretation Comments PARTIAL THROMBOPLASTIN TIME 47.0 seconds 22.5-36.0 H (BEAKER) (test code = 760) PROTHROMBIN [id number] 11:07:00 Test Item Value Reference Range Interpretation [...] for patients wiht mechanical heart valves.HEPATIC FUNCTION [id number] 01:46:00 Test Item Value Reference Range Interpretation [...] = 16 U/L 6-55 347) BASIC METABOLIC [id number] 01:46:00 Test Item Value Reference Range Interpretation [...] PATIEN TS. CBC W/PLT COUNT & AUTO [id number] 01:19:00 Test Item Value Reference Range Interpretation [...] (BEAKER) (test code = 2801) BETA-2 GLYCOPROTEIN [id number] 08:02:00 Test Item Value Reference Range Interpretation Comments B2 GLYCOPROTEIN Refer to individual AUTOVERIFICATION COMPONENT B2-Glycoprotein (test code = 2557) IgG, IgM and IgA results. [id number] 07:34:00 Test Item Value Reference Range Interpretation Comments MAGNESIUM (BEAKER) (test code = 1.6 mg/dL 1.6-2.6 627) BASIC METABOLIC [id number] 07:34:00 Test Item Value Reference Range Interpretation [...] APPLICABLE FOR DIALYSIS PATIEN TS. HEPATIC FUNCTION [id number] 07:34:00 Test Item Value Reference Range Interpretation [...] (test code = 41 U/L 6-55 347) [id number] 07:23:00 Test Item Value Reference Range Interpretation [...] 2801) LUPUS ANTICOAGULANT SCREEN WITH REFLEX TO [id number] 09:29:00 Test Item Value Reference Range Interpretation [...] (BEAKER) (test 61.5 32.0-41.8 H code = [id number]) [id number] Christy Smith MD (BEAKER) (test code = (electronic signature) 7423) [id number] 08:06:00 Test Item Value Reference Range Interpretation Comments MAGNESIUM (BEAKER) (test code = 1.7 mg/dL 1.6-2.6 627) BASIC METABOLIC [id number] 08:06:00 Test Item Value Reference Range Interpretation [...] APPLICABLE FOR DIALYSIS PATIEN TS. HEPATIC FUNCTION [id number] 08:06:00 Test Item Value Reference Range Interpretation [...] 6-55 347) CBC W/PLT COUNT & AUTO [id number] 07:58:00 Test Item Value Reference Range Interpretation [...] PERCENT (BEAKER) (test code = 2801) PROTHROMBIN [id number] 07:26:00 Test Item Value Reference Range Interpretation Comments PROTIME (BEAKER) (test code = 14.5 seconds 11.7-14.7 759) INR (BEAKER) (test code = 370) 1.2 <=5.9 RECOMMENDED COUMADIN/WARFARIN INR THERAPY RANGESSTANDARD DOSE: 2.0 - 3.0 Includes: PROPHYLAXIS forvenous thrombosis, systemic embolization; TREATMENT for venous thrombosis and/or pulmonary embolus.HIGH RISK: Target INR is 2.5-3.5 for patients with mechanical heart valves.[id number] 07:26:00 Test Item Value Reference Range Interpretation [...] 2.5-3.5 for patients with mechanical heart valves.HEXAGONAL [id number] 14:07:00 Test Item Value Reference Range Interpretation Comments HEXAGONAL PHOSPHOLIPID (BEAKER) Positive (test code = 1790) 1:1 MIXING STUDY, [id number] 09:07:00 Test Item Value Reference Range Interpretation Comments PROTIME (BEAKER) (test code = 19.6 seconds 11.7-14.7 H 759) PARTIAL THROMBOPLASTIN TIME 57.5 seconds 22.5-36.0 H (BEAKER) (test code = 760) PT 1/1 MIX (BEAKER) (test code = 14.4 SECS 11.7-14.7 1595) PTT 1/1 MIX (BEAKER) (test code 41.9 SECS 22.5-36.0 H = 1596) [id number] 07:05:00 Test Item Value Reference Range Interpretation [...] 2.5-3.5 for patients with mechanical heart valves.PROTHROMBIN [id number] 07:04:00 Test Item Value Reference Range Interpretation Comments PROTIME (BEAKER) (test code = 16.9 seconds 11.7-14.7 H 759) INR (BEAKER) (test code = 370) 1.4 <=5.9 RECOMMENDED COUMADIN/WARFARIN INR THERAPY RANGESSTANDARD DOSE: 2.0 - 3.0 Includes: PROPHYLAXIS forvenous thrombosis, systemic embolization; TREATMENT for venous thrombosis and/or pulmonary embolus.HIGH RISK: Target INR is 2.5-3.5 for patients with mechanical heart valves.[id number] 06:49:00 Test Item Value Reference Range Interpretation Comments MAGNESIUM (BEAKER) (test code = 1.7 mg/dL 1.6-2.6 627) BASIC METABOLIC [id number] 06:49:00 Test Item Value Reference Range Interpretation [...] APPLICABLE FOR DIALYSIS PATIEN TS. HEPATIC FUNCTION [id number] 06:49:00 Test Item Value Reference Range Interpretation [...] 6-55 347) CBC W/PLT COUNT & AUTO [id number] 06:36:00 Test Item Value Reference Range Interpretation [...] code = 2801) CARDIOLIPIN ANTIBODIES, IGG AND [id number] 06:24:00 Test Item Value Reference Range Interpretation Comments ANTICARDIOLIPIN IGG ANTIBODY (BEAKER) < GPL <20.0 (test code = 712) ANTICARDIOLIPIN IGM ANTIBODY (BEAKER) 0.2 MPL <20.0 (test code = 713) Anticardiolipin IgG Result Interpretation: <20.0 GPL Normal>/= 20.0 GPL PositiveAnticardiolipin IgM Result Interpretation: <20.0 MPL Normal>/= 20.0 MPL PositiveTHROMBIN [id number] 13:45:00 Test Item Value Reference Range Interpretation Comments THROMBIN TIME (BEAKER) (test code = 17.2 secs 13.8-20.0 550) [id number] 12:46:00 Test Item Value Reference Range Interpretation Comments FIBRINOGEN LEVEL (BEAKER) (test 762 mg/dl 225-434 H code = 658) [id number] 10:48:00 Test Item Value Reference Range Interpretation Comments MAGNESIUM (BEAKER) (test code = 1.7 mg/dL 1.6-2.6 627) BASIC METABOLIC [id number] 10:48:00 Test Item Value Reference Range Interpretation [...] APPLICABLE FOR DIALYSIS PATIEN TS. HEPATIC FUNCTION [id number] 10:48:00 Test Item Value Reference Range Interpretation [...] (test code = 50 U/L 6-55 347) [id number] 06:40:00 Test Item Value Reference Range Interpretation [...] 2.5-3.5 for patients with mechanical heart valves.PROTHROMBIN TIME/[id number] 06:39:00 Test Item Value Reference Range Interpretation [...] 0-1 PERCENT (BEAKER) (test code = 2801) [id number] 06:48:00 Test Item Value Reference Range Interpretation Comments MAGNESIUM (BEAKER) (test code = 1.9 mg/dL 1.6-2.6 627) BASIC METABOLIC [id number] 06:48:00 Test Item Value Reference Range Interpretation [...] APPLICABLE FOR DIALYSIS PATIEN TS. HEPATIC FUNCTION [id number] 06:48:00 Test Item Value Reference Range Interpretation [...] (test code = 50 U/L 6-55 347) [id number] 06:31:00 Test Item Value Reference Range Interpretation [...] 2.5-3.5 for patients with mechanical heart valves.PROTHROMBIN TIME/[id number] 06:30:00 Test Item Value Reference Range Interpretation [...] = 2801) RAD, CHEST, 1 VIEW, NON [id number] 18:34:00Reason for exam:->SOBShould this be performed at [...] MDReport Verified Date/Time: 06/11/2018 18:34:14 Reading Location: [address] Consult Reading Room B-TYPE NATRIURETIC FACTOR (BNP)2018-06-11 15:45:00 Test Item Value Reference Range Interpretation Comments B-TYPE NATRIURETIC PEPTIDE (BEAKER) < pg/mL 0-100 (test code = 700) [id number] 06:36:00 Test Item Value Reference Range Interpretation [...] 2.5-3.5 for patients with mechanical heart valves.PROTHROMBIN TIME/[id number] 06:35:00 Test Item Value Reference Range Interpretation Comments PROTIME (BEAKER) (test code = 21.5 seconds 11.7-14.7 H 759) INR (BEAKER) (test code = 370) 2.0 <=5.9 RECOMMENDED COUMADIN/WARFARIN INR THERAPY RANGESSTANDARD DOSE: 2.0 - 3.0 Includes: PROPHYLAXIS forvenous thrombosis, systemic embolization; TREATMENT for venous thrombosis and/or pulmonary embolus.HIGH RISK: Target INR is 2.5-3.5 for patients with mechanical heart valves.[id number] 06:29:00 Test Item Value Reference Range Interpretation Comments MAGNESIUM (BEAKER) 1.9 mg/dL 1.6-2.6 Specimen slightly (test code = 627) hemolyzed BASIC METABOLIC [id number] 06:29:00 Test Item Value Reference Range Interpretation [...] APPLICABLE FOR DIALYSIS PATIEN TS. HEPATIC FUNCTION [id number] 06:29:00 Test Item Value Reference Range Interpretation [...] 347) hemolyzed CBC W/PLT COUNT & AUTO [id number] 06:00:00 Test Item Value Reference Range Interpretation [...] = 2801) BODY FLUID CULTURE + GRAM [id number] 18:11:00 Test Item Value Reference Range Interpretation Comments CULTURE (BEAKER) (test No growth code = 1095) GRAM STAIN RESULT <1+ White blood cells (BEAKER) (test code = seen 1123) GRAM STAIN RESULT No organisms seen (BEAKER) (test code = 88563) [id number] 07:01:00 Test Item Value Reference Range Interpretation Comments MAGNESIUM (BEAKER) (test code = 1.9 mg/dL 1.6-2.6 627) BASIC METABOLIC [id number] 07:01:00 Test Item Value Reference Range Interpretation [...] APPLICABLE FOR DIALYSIS PATIEN TS. HEPATIC FUNCTION [id number] 07:01:00 Test Item Value Reference Range Interpretation [...] code = 66 U/L 6-55 H 347) [id number] 06:32:00 Test Item Value Reference Range Interpretation [...] PERCENT (BEAKER) (test code = 2801) BLOOD [id number] 22:01:00 Test Item Value Reference Range Interpretation Comments CULTURE (BEAKER) (test No growth in 5 days code = 1095) BLOOD [id number] 22:01:00 Test Item Value Reference Range Interpretation Comments CULTURE (BEAKER) (test No growth in 5 days code = 1095) [id number] 07:20:00 Test Item Value Reference Range Interpretation [...] 0-1 PERCENT (BEAKER) (test code = 2801) [id number] 07:08:00 Test Item Value Reference Range Interpretation Comments MAGNESIUM (BEAKER) (test code = 2.1 mg/dL 1.6-2.6 627) BASIC METABOLIC [id number] 07:08:00 Test Item Value Reference Range Interpretation [...] APPLICABLE FOR DIALYSIS PATIEN TS. HEPATIC FUNCTION [id number] 07:08:00 Test Item Value Reference Range Interpretation [...] = 69 U/L 6-55 H 347) PROTHROMBIN [id number] 06:54:00 Test Item Value Reference Range Interpretation Comments PROTIME (BEAKER) (test code = 21.3 seconds 11.7-14.7 H 759) INR (BEAKER) (test code = 370) 2.0 <=5.9 RECOMMENDED COUMADIN/WARFARIN INR THERAPY RANGESSTANDARD DOSE: 2.0 - 3.0 Includes: PROPHYLAXIS forvenous thrombosis, systemic embolization; TREATMENT for venous thrombosis and/or pulmonary embolus.HIGH RISK: Target INR is 2.5-3.5 for patients with mechanical heart valves.[id number] 06:24:00 Test Item Value Reference Range Interpretation Comments MAGNESIUM (BEAKER) (test code = 2.0 mg/dL 1.6-2.6 627) BASIC METABOLIC [id number] 06:24:00 Test Item Value Reference Range Interpretation [...] APPLICABLE FOR DIALYSIS PATIEN TS. HEPATIC FUNCTION [id number] 06:24:00 Test Item Value Reference Range Interpretation [...] H 347) CBC W/PLT COUNT & AUTO [id number] 06:17:00 Test Item Value Reference Range Interpretation [...] PERCENT (BEAKER) (test code = 2801) PROTHROMBIN [id number] 05:39:00 Test Item Value Reference Range Interpretation Comments PROTIME (BEAKER) (test code = 22.4 seconds 11.7-14.7 H 759) INR (BEAKER) (test code = 370) 2.1 <=5.9 RECOMMENDED COUMADIN/WARFARIN INR THERAPY RANGESSTANDARD DOSE: 2.0 - 3.0 Includes: PROPHYLAXIS forvenous thrombosis, systemic embolization; TREATMENT for venous thrombosis and/or pulmonary embolus.HIGH RISK: Target INR is 2.5-3.5 for patients with mechanical heart valves.[id number] 05:39:00 Test Item Value Reference Range Interpretation [...] for patients with mechanical heart valves.VANCOMYCIN LEVEL, [id number] 05:28:00 Test Item Value Reference Range Interpretation Comments VANCOMYCIN TROUGH (BEAKER) (test 14.0 ug/mL 10.0-20.0 code = 522) RAD, CHEST, 1 VIEW, NON [id number] 16:09:00Reason for exam:->feverShould this be performed at [...] Josy Price [facility] Verified Date/Time: 06/07/2018 16:09:31 Reading Location: [facility] [place] INCUBATED 1:1 MIXING [id number] 16:01:00 Test Item Value Reference Range Interpretation Comments IMMEDIATE PT (BEAKER) 22.5 seconds 11.7-14.7 H (test code = 1487) IMMEDIATE PTT (BEAKER) 54.8 seconds 22.5-36.0 H (test code = 1488) IMMEDIATE 1:1 MIX PT 14.1 seconds 11.7-14.7 (BEAKER) (test code = 5276831016) IMMEDIATE 1:1 MIX PTT 40.9 seconds 22.5-36.0 H (BEAKER) (test code = 2794487094) 1:1 MIX, 1 HOUR INC PT 14.9 seconds (BEAKER) (test code = 1501) 1:1 MIX, 1 HOUR INC PTT 43.6 seconds (BEAKER) (test code = 1502) MIXING STUDY PATHOLOGIST Prolonged PT and PTT INTERPRETATION (BEAKER) with complete (test code = 7529896253) correction of PT and incomplete correction of PTT, 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 [id number] Sade Mccormack MD (BEAKER) (test code = (electronic 2608) signature) URINALYSIS W/ REFLEX URINE [id number] 14:23:00 Test Item Value Reference Range Interpretation [...] 1574) Rare SOURCE(BEAKER) (test code = 2795) [id number] 04:19:00 Test Item Value Reference Range Interpretation [...] 2.5-3.5 for patients with mechanical heart valves.PROTHROMBIN [id number] 04:18:00 Test Item Value Reference Range Interpretation Comments PROTIME (BEAKER) (test code = 22.3 seconds 11.7-14.7 H 759) INR (BEAKER) (test code = 370) 2.1 <=5.9 RECOMMENDED COUMADIN/WARFARIN INR THERAPY RANGESSTANDARD DOSE: 2.0 - 3.0 Includes: PROPHYLAXIS forvenous thrombosis, systemic embolization; TREATMENT for venous thrombosis and/or pulmonary embolus.HIGH RISK: Target INR is 2.5-3.5 for patients with mechanical heart valves.[id number] 04:08:00 Test Item Value Reference Range Interpretation Comments MAGNESIUM (BEAKER) (test code = 1.8 mg/dL 1.6-2.6 627) BASIC METABOLIC [id number] 04:08:00 Test Item Value Reference Range Interpretation [...] APPLICABLE FOR DIALYSIS PATIEN TS. HEPATIC FUNCTION [id number] 04:08:00 Test Item Value Reference Range Interpretation [...] H 347) CBC W/PLT COUNT & AUTO [id number] 03:56:00 Test Item Value Reference Range Interpretation [...] PERCENT (BEAKER) (test code = 2801) [place], [id number] 18:30:00Reason for exam:->stonesPROCEDURE PERFORMED IN O.R. - PLEASE REFER TO THE INTRAOPERATIVE REPORT. CT, DRAINAGE, ABDOMINAL 2018-06-06 18:06:00Reason for exam:->drainage of pancreatic fluid collection; concern for infection given ongoing fevers, WBC 24kFINAL REPORT INDICATION:28-year-old male with acute pancreatitis and acute necrotic collection. Request for percutaneous image guided drainage catheter placement. COMPARISON:June 05, 2018 TECHNIQUE:CT-guided placement of 10 Qatari drainage catheter in left upper quadrant peripancreatic [...] and the introducer needle removed. An 8 Qatari and then 10 Qatari dilator were used. Then, a 10 Qatari multisidehole drainage catheter was placed over the [...] 45 minutes. IMPRESSION: CT-guided placement of 10 Qatari drainage catheter in left upper quadrant peripancreatic collection. Thin dark fluid was encountered. Signed: Aldo Mcguire MDReport Verified Date/Time: 06/06/2018 18:06:54 Reading Location: [facility] B1 C013Y CT Body Reading Room Electronically sign ed by: ALDO MCGUIRE M.D. on 06/06/2018 06:06 PMC. DIFFICILE GDH [id number] 10:12:00 Test Item Value Reference Range Interpretation Comments CDT TOXIN (test code Negative Negative = [id number]) CDT GDH ANTIGEN (test Negative Negative No ind ication of code = 8616934491) Clostridi um difficile infection and n o colonization. Discontinue ent sonal isolation and t herapy. Testing performed by [employer] Rapid Cassette Assay. For GDH, published sensitivity of the assay is 98.7% compared to cytotoxicity testing. For Toxin AB, published sensitivity is 87.8% and specificity 99.4% compared to cytotoxicity testing.Verification of kit performance was done by the [facility] Microbiology Lab prior to clinical use.VANCOMYCIN LEVEL, [id number] 04:02:00 Test Item Value Reference Range Interpretation Comments VANCOMYCIN TROUGH (BEAKER) (test 9.9 ug/mL 10.0-20.0 L code = 522) [id number] 02:24:00 Test Item Value Reference Range Interpretation Comments MAGNESIUM (BEAKER) (test code = 1.8 mg/dL 1.6-2.6 627) BASIC METABOLIC [id number] 02:24:00 Test Item Value Reference Range Interpretation [...] APPLICABLE FOR DIALYSIS PATIEN TS. HEPATIC FUNCTION [id number] 02:24:00 Test Item Value Reference Range Interpretation [...] code = 60 U/L 6-55 H 347) [id number] 02:12:00 Test Item Value Reference Range Interpretation [...] 2.5-3.5 for patients with mechanical heart valves.PROTHROMBIN TIME/[id number] 02:11:00 Test Item Value Reference Range Interpretation [...] H PERCENT (BEAKER) (test code = 2801) [id number] 16:33:00 Test Item Value Reference Range Interpretation Comments FIBRINOGEN LEVEL (BEAKER) (test 852 mg/dl 225-434 H code = 658) CT, [id number] 12:46:00FINAL REPORT CT abdomen and pelvis with [...] MDReport Verified Date/Time: 06/05/2018 12:46:00 Reading Location: [facility] Diagnostic Imaging Reading Room - [place] [address] CBC W/PLT COUNT & AUTO DIFFERENTIAL 2018-06-05 [...] = 3438) Received comment: User comments: Slide comments:[id number] 04:13:00 Test Item Value Reference Range Interpretation [...] is 2.5-3.5 for patients with mechanical heart valves.[id number] 04:12:00 Test Item Value Reference Range Interpretation Comments MAGNESIUM (BEAKER) (test code = 1.8 mg/dL 1.6-2.6 627) BASIC METABOLIC [id number] 04:12:00 Test Item Value Reference Range Interpretation [...] APPLICABLE FOR DIALYSIS PATIEN TS. HEPATIC FUNCTION [id number] 04:12:00 Test Item Value Reference Range Interpretation [...] code = 55 U/L 6-55 347) PROTHROMBIN [id number] 04:12:00 Test Item Value Reference Range Interpretation Comments PROTIME (BEAKER) (test code = 20.4 seconds 11.7-14.7 H 759) INR (BEAKER) (test code = 370) 1.9 <=5.9 RECOMMENDED COUMADIN/WARFARIN INR THERAPY RANGESSTANDARD DOSE: 2.0 - 3.0 Includes: PROPHYLAXIS forvenous thrombosis, systemic embolization; TREATMENT for venous thrombosis and/or pulmonary embolus.HIGH RISK: Target INR is 2.5-3.5 for patients with mechanical heart valves.BLOOD [id number] 02:02:00 Test Item Value Reference Range Interpretation Comments CULTURE (BEAKER) (test No growth in 5 days code = 1095) BLOOD [id number] 02:02:00 Test Item Value Reference Range Interpretation Comments CULTURE (BEAKER) (test No growth in 5 days code = 1095) CBC W/PLT COUNT & AUTO [id number] 22:18:00 Test Item Value Reference Range Interpretation [...] = 3438) Received comment: User comments: Slide comments:[id number] 14:28:00 Test Item Value Reference Range Interpretation Comments PROCALCITONIN (BEAKER) (test code 0.62 ng/mL <0.05 H = 3036) SEPSIS RISK (ng/mL)Low: 0.05-0.50Intermediate: 0.51-2.00High: >=2.01LACTIC ACID, [id number] 14:07:00 Test Item Value Reference Range Interpretation Comments LACTATE BLOOD VENOUS 1.1 mmol/L 0.5-2.2 Specime n moderately (2) (BEAKER) (test hemolyzed code = 2872) [id number] 06:34:00 Test Item Value Reference Range Interpretation Comments MAGNESIUM (BEAKER) (test code = 1.7 mg/dL 1.6-2.6 627) BASIC METABOLIC [id number] 06:34:00 Test Item Value Reference Range Interpretation [...] APPLICABLE FOR DIALYSIS PATIEN TS. HEPATIC FUNCTION [id number] 06:34:00 Test Item Value Reference Range Interpretation [...] (test code = 53 U/L 6-55 347) [id number] 06:06:00 Test Item Value Reference Range Interpretation [...] 2.5-3.5 for patients with mechanical heart valves.PROTHROMBIN TIME/[id number] 06:05:00 Test Item Value Reference Range Interpretation Comments PROTIME (BEAKER) (test code = 18.7 seconds 11.7-14.7 H 759) INR (BEAKER) (test code = 370) 1.7 <=5.9 RECOMMENDED COUMADIN/WARFARIN INR THERAPY RANGESSTANDARD DOSE: 2.0 - 3.0 Includes: PROPHYLAXIS forvenous thrombosis, systemic embolization; TREATMENT for venous thrombosis and/or pulmonary embolus.HIGH RISK: Target INR is 2.5-3.5 for patients with mechanical heart valves.[id number] 06:22:00 Test Item Value Reference Range Interpretation Comments MAGNESIUM (BEAKER) (test code = 1.8 mg/dL 1.6-2.6 627) BASIC METABOLIC [id number] 06:22:00 Test Item Value Reference Range Interpretation [...] APPLICABLE FOR DIALYSIS PATIEN TS. HEPATIC FUNCTION [id number] 06:22:00 Test Item Value Reference Range Interpretation [...] (test code = 46 U/L 6-55 347) [id number] 06:08:00 Test Item Value Reference Range Interpretation [...] 2.5-3.5 for patients with mechanical heart valves.PROTHROMBIN TIME/[id number] 06:07:00 Test Item Value Reference Range Interpretation [...] = 2801) CBC W/PLT COUNT & AUTO [id number] 04:50:00 Test Item Value Reference Range Interpretation [...] H PERCENT (BEAKER) (test code = 2801) [id number] 04:26:00 Test Item Value Reference Range Interpretation Comments MAGNESIUM (BEAKER) (test code = 1.7 mg/dL 1.6-2.6 627) BASIC METABOLIC [id number] 04:26:00 Test Item Value Reference Range Interpretation [...] APPLICABLE FOR DIALYSIS PATIEN TS. HEPATIC FUNCTION [id number] 04:26:00 Test Item Value Reference Range Interpretation [...] (test code = 54 U/L 6-55 347) [id number] 04:11:00 Test Item Value Reference Range Interpretation [...] 2.5-3.5 for patients with mechanical heart valves.PROTHROMBIN TIME/[id number] 04:10:00 Test Item Value Reference Range Interpretation Comments PROTIME (TAI) (test code = 17.3 seconds 11.7-14.7 H 759) INR (TAI) (test code = 370) 1.5 <=5.9 RECOMMENDED COUMADIN/WARFARIN INR THERAPY RANGESSTANDARD DOSE: 2.0 - 3.0 Includes: PROPHYLAXIS forvenous thrombosis, systemic embolization; TREATMENT for venous thrombosis and/or pulmonary embolus.HIGH RISK: Target INR is 2.5-3.5 for patients with mechanical heart valves.U/S, ABDOMINAL, [id number] 14:19:00Abdomen limited area? Add comment if clarification [...] Albert Verified Date/Time: 06/01/2018 14:19:45 Reading Location: [address] Reading Room CBC W/PLT COUNT & AUTO [id number] 06:28:00 Test Item Value Reference Range Interpretation [...] 0-1 PERCENT (BEAKER) (test code = 2801) [id number] 05:51:00 Test Item Value Reference Range Interpretation Comments MAGNESIUM (BEAKER) (test code = 2.0 mg/dL 1.6-2.6 627) BASIC METABOLIC [id number] 05:51:00 Test Item Value Reference Range Interpretation [...] DIALYSIS PATIEN TS. Specimen slightly ictericHEPATIC FUNCTION [id number] 05:51:00 Test Item Value Reference Range Interpretation [...] = 48 U/L 6-55 347) Specimen slightly ictericPT/[id number] 05:30:00 Test Item Value Reference Range Interpretation [...] 2.5-3.5 for patients with mechanical heart valves.PROTHROMBIN TIME/[id number] 05:29:00 Test Item Value Reference Range Interpretation Comments PROTIME (BEAKER) (test code = 16.0 seconds 11.7-14.7 H 759) INR (BEAKER) (test code = 370) 1.3 <=5.9 RECOMMENDED COUMADIN/WARFARIN INR THERAPY RANGESSTANDARD DOSE: 2.0 - 3.0 Includes: PROPHYLAXIS forvenous thrombosis, systemic embolization; TREATMENT for venous thrombosis and/or pulmonary embolus.HIGH RISK: Target INR is 2.5-3.5 for patients with mechanical heart valves.RAD, CHEST, 1 VIEW, NON [id number] 11:58:00Reason for exam:->pancreatitisShould this be performed at [...] inthe left lung base. Signed: Perez Huerta Verified Date/Time: 05/31/2018 11:58:54 Reading Location: [facility] Radiology Reading Room CBC W/PLT COUNT & AUTO [id number] 08:44:00 Test Item Value Reference Range Interpretation [...] = 3438) Received comment: User comments: Slide comments:[id number] 04:27:00 Test Item Value Reference Range Interpretation Comments MAGNESIUM (BEAKER) (test code = 1.6 mg/dL 1.6-2.6 627) BASIC METABOLIC [id number] 04:27:00 Test Item Value Reference Range Interpretation [...] DIALYSIS PATIEN TS. Specimen moderately ictericHEPATIC FUNCTION [id number] 04:27:00 Test Item Value Reference Range Interpretation [...] = 29 U/L 6-55 347) Specimen moderately ictericPT/[id number] 04:15:00 Test Item Value Reference Range Interpretation [...] 2.5-3.5 for patients with mechanical heart valves.PROTHROMBIN TIME/[id number] 04:14:00 Test Item Value Reference Range Interpretation [...] = 2795) CBC W/PLT COUNT & AUTO [id number] 21:33:00 Test Item Value Reference Range Interpretation [...] PLATELET CONCENTRATION Adequate (CELLAVISION)(BEAKER) (test code = 343) Received comment: User comments: Slide comments:TROPONIN [id number] 21:32:00 Test Item Value Reference Range Interpretation [...] acute neurological disease, and persistent tachyarrhythmia.BASIC METABOLIC [id number] 21:29:00 Test Item Value Reference Range Interpretation [...] APPLICABLE FOR DIALYSIS PATIEN TS. Specimen moderately [id number] 21:27:00 Test Item Value Reference Range Interpretation Comments MAGNESIUM (BEAKER) (test code = 1.6 mg/dL 1.6-2.6 627) LIPID [id number] 21:27:00 Test Item Value Reference Range Interpretation [...] 160-189 Very High >=190 Specimen moderatelyictericHEPATIC FUNCTION [id number] 21:27:00 Test Item Value Reference Range Interpretation [...] 9-64 (test code = 364) Specimen moderately [id number] 21:27:00 Test Item Value Reference Range Interpretation Comments LIPASE (BEAKER) (test code = 749) 227 U/L 8-78 H Specimen moderately ictericPROTHROMBIN [id number] 21:05:00 Test Item Value Reference Range Interpretation [...]
== END 2020-03-16 20:58 | disposition short-term general hospital (02) ==
LOC: ER 12:30
PROC: 05HQ33Z Insertion of Infusion Device into Left External Jugular Vein, Percutaneous Approach (ICD-10-PCS; principal; 2020-03-16)
DX: U07.1 COVID-19 (principal); K52.9 Noninfective gastroenteritis and colitis, unspecified; K85.90 Acute pancreatitis without necrosis or infection, unspecified; K86.1 Other chronic pancreatitis; K86.3 Pseudocyst of pancreas; Z88.3 Allergy status to other anti-infective agents; Z88.8 Allergy status to other drugs, medicaments and biological substances
CPT/HCPCS: 85025; 80048; 36415; 82565; 80076; 83690; 74177; 36569; U0003; Q9967; J1170 ×2; J7030; J2405 ×2; 96361; 96365; 96367; 96375; 99285

== ENCOUNTER 2021-09-25 11:00 | Emergency (ER) | payer OTHER ==
--- OUTSIDE RECORDS SUMMARY | 2021-09-25 11:21 | XMS REPORT | Continuity of Care Document ---
:1990 Author Organization [facility] t Address [address] [place] [address] Care Team Providers Name Role Phone KELLY NAVA Montrell Primary Care Physician Unavailable CARMEN ÁSNCHEZ Attending Clinician Unavailable JETT WEI Attending Clinician Unavailable ALVARO MCKEON Attending Clinician UnavailANHUN Ivey Attending Clinician Unavailable VIRGINIA RWOLEY Attending Clinician Unavailable TEGAN CASPER Attending Clinician Unavailable Rios Alberts MD Attending Clinician Carmen Sánchez MD Attending Clinician Julianne WADE, Musa Sierra Attending Clinician Oscar WADE, Negin Connors Attending Clinician [phone] Darrick WADE, Deb Chan Attending Clinician Eugene WADE, Peter Attending Clinician [phone] Redd Zheng MD Attending Clinician Fuentes Tamayo CRNA Attending Clinician Andre WADE, Iam [place] Attending Clinician JAVIER REEVES Attending Clinician Unavailable TESS CARRION Attending Clinician Unavailable VISHNU GREEN Attending Clinician Unavailable VINICIUS CASEY Attending Clinician Unavailable UMSA WHITAKER Attending Clinician Unavailable DALE BOWER Attending Clinician Unavailable JETT CELAYA Attending Clinician Unavailable CARMEN SÁNCHEZ Admitting Clinician Unavailable JETT WEI Admitting Clinician Unavailable ALVARO MCKEON Admitting Clinician UnavailNAHUN Ivey Admitting Clinician Unavailable TEGAN CASPER Admitting Clinician Unavailable PETER SHARMA Admitting Clinician Unavailable DALE BOWER Admitting Clinician Unavailable POLLY MACIEL Admitting Clinician Unavailable JAVIER REEVES Admitting Clinician Unavailable TESS CARRION Admitting Clinician Unavailable SIMON BUCIO Admitting Clinician Unavailable VINICIUS CASEY Admitting Clinician Unavailable MUSA WHITAKER Admitting Clinician Unavailable JETT CELAYA Admitting Clinician Unavailable Payers Payer Name Policy Type Policy Number Effective Date Expiration Date S ource [facility]ICA[facility] [id number] 2011 00:00:00 CDC REVIEW [id number] 2019 00:00:00 Problems Condition Condition Condition Status Onset Resolution Last Treating Co mments Source Name Details Category Date Date Treatment Clinician Date COVID-19 COVID-19 Disease [facility] 00 [place] Generalize Generalize Disease Active 2019-[address] d d 1-30 [facility] abdominal abdominal 00:00: Medi dk pain pain 00 Center Upper GI Upper GI Disease Active 2019- [facility] bleed bleed [facility] 00 [place] Acute Acute Disease Active 2019-[address] [facility] [address] postoperat postoperat 9-12 Mariah kes yuridia pain yuridia pain 00:00: Medica l 00 Center Acute Acute Disease Active 2019-[address] [facility] respirator respirator 9-12 Mariah kes y y 00:00: Medical insufficie insufficie 00 Ce nter ncy, ncy, postoperat postoperat yuridia yuridia Hemorrhagi Hemorrhagi Disease Active 2020- [facility] shock c shock 9-12 [facility] 00 [place] Metabolic Metabolic Disease Active 2019- [facility] acidosis acidosis 9-12 [facility] Medical 00 [place] Oliguria Oliguria Disease Active 2019- [facility] 00 [place] Acute Acute Disease Active 2019- [facility] blood loss blood loss 9-12 Mariah kes anemia anemia 00:00: Medical 00 [place] Hyperglyce Hyperglyce Disease Active [facility] mary ann mary ann 9-12 [facility] 00:[facility]: Medical 00 [place] S/P S/P Disease Active 2019- [facility] splenectom splenectom 9-12 Mariah kes y during y during 00:00: Medica l current current 00 [place] [facility] hospital ation ation Gastric Gastric Disease Active 2019- [facility] varices varices 10-12 [facility] 00:[facility] 00 [place] [facility] Diagnosis Active 2019-10-14 Oh moria VISIT VISIT 09-29 12:21:00 l Active 00:00: Nigel 09/30/2019 00 [facility] GASTRIC GASTRIC Diagnosis [facility] 2019[facility]10[facility]02 [facility] VARICES 08-31 15:46:00 l SEVERE SEVERE 00:00: Nigel PANCREATIC PANCREATIC 00 NECR NECR Active 09/01/2019 [facility] UPPER GI UPPER GI Diagnosis Active 2019-08-28 [facility] BLEED BLEED 08-26 00:59:00 l Active 00:00: Nigel 08/27/2019 [facility] ACUTE ACUTE Diagnosis Active 2019-09-09 Mem oria UPPER GI UPPER GI 08-26 21:51:00 l BLEED, BLEED, 00:00: [place] ACUTE ACUTE 00 BLOOD LOSS BLOOD LOSS A A Active 08/27/2019 [facility] Obstructiv Obstructiv Disease Active 2019- [facility] e jaundice e jaundice 1-10 Mariah kes 00:00: Medical 00 [place] GI bleed GI bleed Disease Active [facility] 00 [place] Leukocytos Leukocytos Disease Active [facility] is is 08-27 [facility] 00:00: Medical 00 [place] Hypomagnes Hypomagnes Disease Active [facility] emia emia 07-28 [facility] 00:[facility]: Medical 00 [place] 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 07-27 [facility] pancreatit pancreatit 00:00: Me dical is is 00 Center Peripancre Peripancre Disease Active [facility] atic fluid atic fluid 07-11 Mariah kes collection collection 00:00: Me dical 00 [place] Cholangiti Cholangiti Disease Active [facility] s 05-30 [facility] 00:00: Medical 00 [place] GASTROINTE GASTROINT Diagnosis Active 2019-09-09 Memoria STINAL ESTINAL 21:51:00 l HEMORRHAGE HEMORRHAGE He rmann , , UNSPECIFIE UNSPECIFIE D D Active [facility] ACUTE ACUTE Diagnosis Active 2019-09-09 Mem oria POSTHEMORR POSTHEMORR 21:51:00 l HAGIC HAGIC [place] ANEMIA ANEMIA Active [facility] HYPOTENSIO HYPOTENSI Diagnosis Active 2019-09-09 Memoria N, ON, 21:51:00 l UNSPECIFIE UNSPECIFIE He rmann D D Active [facility] ILLNESS, ILLNESS, Diagnosis Active 2019-08-28 Memoria UNSPECIFIE UNSPECIFIE 00:59:00 l D D Active [facility] Illness, Illness, Problem 2019-09-01 Memoria unspecifie unspecifie 09:02:02 l d d Nigel 09/01/2019 [facility] Allergies, Adverse Reactions, Alerts Allergy Allergy Status Severity Reaction(s) Onset Inactive Treating Comm ents Source Name Type Date Date Clinician Morphine Drug Active Nausea [facility] Allergy Vomiting 1-10 [facility] 00:[facility]: Medical 00 [place] MORPHINE Allergy Active N\\T\\V [facility] 1-10 00:00: 00 tazobact DA Active U 2018- [facility] am 09-11 Clear 00:00: [facility] piperaci DA Active U [facility] llin 09-11 Clear 00:00: [facility] vancomyc DA Active U [facility] in 09-11 Clear 00:00: [facility] MEREPENE DA Active U [facility] M 09-11 Clear 00:00: [facility] Vancomyc Propensi Active Rash Rash with [facility] ty to 7 lip [facility] Analogue adverse 00:00: swelling Medic al s reaction 00 Center s VANCOMYC Allergy Active High Rash 2018- [facility] IN 08-27 ANALOGUE 00:00: S 00 Piperaci Drug Active Swelling, 2018- Pt [facility] llin-Sam Allergy Rash 6-10 received [facility] obactam 00:00: Zosyn and Medica l 00 vancomyci Center n, and subsequen tly developed a rash with lip swelling. A few days prior to this, pt developed a rash to meropenem . PIPERACI Allergy Active High Swelling [facility] LLIN-SAM 6-10 OBACTAM 00:00: 00 Meropene Drug Active Hives, [facility] m-0.9% Allergy Itching 6-07 [facility] Sodium 00:00: Medical Chloride 00 Center MEROPENE Allergy Active Med Hives [facility] M-0.9% 6-07 SODIUM 00:00: CHLORIDE 00 vancomyc vancomyc Active Memori a in in l Nigel piperaci piperaci Active Memori a llin-sam llin-sam l obactam obactam Nigel meropene meropene Active Memori a m m l Nigel Social History Social Habit Start Date Stop Date Quantity Comments Source Alcohol intake 2020-03-31 2020-03-31 Ex-drinker [facility]n es 00:00:00 00:00:00 (finding) [facility] Social History 2019-08-28 2019-08-28 [facility] 06:50:55 06:50:55 Tobacco use and 2018-06-02 2018-06-[address] [facility] Mariah kes exposure 00:00:00 00:00:[address] [facility] Sex Assigned At [birth year] [facility] [address] Mariah kes 00:00:00 00:00:00 [facility] Center Smoking Status Start Date Stop Date Source Never smoker [facility] Medications Ordered Filled Start Stop Current Ordering Indication Dosage Frequency Signature Comments Components Source Medication Medication Date Date Medication? Clinician (SIG) Name Name Creminda Yes TAKE [address] [facility] 36,000-114, 9-03 CAPSULE BY Mariah sweeney 000- 00:00: MOUTH 3 Medical 180,000 00 TIMES A Center unit CpDR DAY WITH capsule MEALS Creon Yes TAKE [address] 36,000-114, 9-03 CAPSULE BY Mariah sweeney 000- 00:00: MOUTH 3 Medical 180,000 00 TIMES A Center unit CpDR DAY WITH capsule MEALS esomeprazol Yes TAKE [address] [facility] e (NexIUM) 3-25 CAPSULE BY Marilyn es 20 MG 00:00: MOUTH Medical capsule 00 EVERY Center MORNING BEFORE BREAKFAST esomeprazol Yes TAKE [address] [facility] [facility] e (NexIUM) 3-25 CAPSULE BY Marilyn es 20 MG 00:00: MOUTH Medical capsule 00 EVERY Center MORNING BEFORE BREAKFAST ursodioL Yes 500mg QD Take [address] (ACTIGALL) 3-02 mg by [facility] 500 MG 13:28: mouth Medical tablet 07 daily. Center ursodioL Yes 500mg QD Take [address] (ACTIGALL) 3-02 mg by [facility] 500 MG 13:28: mouth Medical tablet 07 daily. [place] esomeprazol 2020- No 20mg Take [address] [facility] (NexIUM 3-02 03-25 by mouth [facility] Packet) 20 00:00: 00:00 every Medic al mg packet 00 :00 morning Center before breakfast for 30 days. esomeprazol 2020- No 20mg Take [address] [facility] e (NexIUM 3-02 03-25 by mouth [facility] Packet) 20 00:00: 00:00 every Medic al mg packet 00 :00 morning Center before breakfast for 30 days. lipase-prot 2020- No 1{capsu Take [address] [facility] [facility] ease-amylas -02 13-03 le} capsule by L [facility] (CREON) 00:00: 00:00 mouth 3 Medi dk 36,000-114, 00 :00 (three) Cente r 000- times 180,000 daily with unit CpDR meals for capsule 30 days. lipase-prot 2020- No 1{capsu Take [address] ease-amylas 3- 09-03 le} capsule by L ukes e (CREON) 00:00: 00:00 mouth 3 Medi dk 36,000-114, 00 :00 (three) Cente r 000- times 180,000 daily with unit CpDR meals for capsule 30 days. acetaminoph 2020- No 1{tbl} Take [address] en-codeine - 03-11 tablet by Marilyn es (TYLENOL 00:00: 23:59 mouth Medical #3) 300-30 00 :00 every 6 Center mg per (six) tablet hours as needed for up to 10 days. Max Daily Amount: 4 tablets HYDROmorpho 2020-2020- No 2mg Take [address] [facility] ne 04-05-11 tablet (2 [facility] (DILAUDID) 00:00: 23:59 mg total) M edical 2 MG tablet 00 :00 by mouth Cent er every 4 (four) hours as needed for up to 10 days. Max Daily Amount: 12 mg acetaminoph 2020- No 1{tbl} Take [address] en-codeine 04-05 tablet by Marilyn es (TYLENOL 00:00: 23:59 mouth Medical #3) 300-30 00 :00 every 6 Center mg per (six) tablet hours as needed for up to 10 days. Max Daily Amount: 4 tablets HYDROmorpho 2020- No 2mg Take [address] [facility] [facility] ne 04-05- tablet (2 [facility] (DILAUDID) 00:00: 23:59 mg total) M edical 2 MG tablet 00 :00 by mouth Cent er every 4 (four) hours as needed for up to 10 days. Max Daily Amount: 12 mg esomeprazol 2020- No 20mg Inject [address] e (NexIUM) 04-05 03-02 mg [facility] 20 mg SolR 00:00: 00:00 intravenou Medical 00 :00 sly every Center morning before breakfast. esomeprazol 2020- No 20mg Inject [address] e (NexIUM) 04-05 03-02 mg [facility] 20 mg SolR 00:00: 00:00 intravenou Medical 00 :00 sly every Center morning before breakfast. acetaminoph 2020- No 1{tbl} Take [address] en-codeine 2-17 04- tablet by Marilyn es (TYLENOL 00:00: 00:00 mouth Medical #3) 300-30 00 :00 every 6 Center mg per (six) tablet hours as needed for up to 10 days. Max Daily Amount: 4 tablets acetaminoph 2020- No 1{tbl} Take [address] en-codeine 2-13 -01 tablet by Marilyn es (TYLENOL 00:00: 00:00 mouth Medical #3) 300-30 00 :00 every 6 Center mg per (six) tablet hours as needed for up to 10 days. Max Daily Amount: 4 tablets sucralfate Yes .5g Take 0.[address] (CARAFATE) 1-25 by mouth 4 Marilyn es 100 mg/mL 00:00: (four) Medica l suspension 00 times Center daily after meals and nightly. sucralfate Yes .5g Take 0.[address] (CARAFATE) 1-25 by mouth 4 Marilyn es 100 mg/mL 00:00: (four) Medica l suspension 00 times Center daily after meals and nightly. omeprazole 2019-02- No 40mg Q.5D Take [address] [facility] (PriLOSEC) 2-03 02-25 capsule [facility] 40 MG 00:00: 23:59 (40 mg Medical capsule 00 :00 total) by Center mouth 2 (two) times daily for 84 days. omeprazole 2019-02 No 40mg Q.5D Take [address] [facility] (PriLOSEC) 2-03 02-25 capsule [facility] 40 MG 00:00: 23:59 (40 mg Medical capsule 00 :00 total) by Center mouth 2 (two) times daily for 84 days. midodrine 2019-02 Yes 10mg Q.[id number] Take [address] [facility] (PROAMATINE 1-12 [id number] tablet (10 [facility] ) 10 MG 00:00: 3D mg total) Medic al tablet 00 by mouth 3 Center (three) times daily. midodrine 2019-02 Yes 10mg Q.[id number] Take [address] [facility] (PROAMATINE 1-12 [id number] tablet (10 [facility] ) 10 MG 00:00: 3D mg total) Medic al tablet 00 by mouth 3 Center (three) times daily. senna 2020- No 17.2mg QD Take [address] (SENOKOT) 9-18 09-18 tablets [facility] 8.6 mg 00:00: 23:59 (17.2 mg Medica l tablet 00 :00 total) by Center mouth nightly. gabapentin 2020- No 200mg Q.[id number] Take [address] [facility] (NEURONTIN) 10-23 [id number] capsules [facility] 100 MG 00:00: 23:59 3D (200 mg Medical capsule 00 :00 total) by Center mouth 3 (three) times daily. senna No 17.2mg QD Take [address] (SENOKOT) 10-23 tablets [facility] 8.6 mg 00:00: 23:59 (17.2 mg Medica l tablet 00 :00 total) by Center mouth nightly. gabapentin No 200mg Q.[id number] Take [address] (NEURONTIN) 10-23 [id number] capsules [facility] 100 MG 00:00: 23:59 3D (200 mg Medical capsule 00 :00 total) by Center mouth 3 (three) times daily. Saline Yes Notes: Memoria Flush 0.9% 7-26 (Same as: l 21:00: BD [place] 00 Posiflush) Saline Yes Notes: Memoria Flush 0.9% 7-26 (Same as: l 21:00: BD [place] 00 Posiflush) Lidocaine 2019-0 Yes Notes: Memori [...] 0.9% 7-26 (Same as: l 15:08: BD [place] 00 Posiflush) pantoprazol 2019-0 Yes Notes: For Memoria e additive 7-26 IV push l 80 mg + 15:08: reconstitu Herm ramona Sodium 00 te with 10 Chloride ml 0.9% 0.9% IV 100 sodium mL chloride and push over 2 minutes. (Same as: Protonix) Saline 2019- Yes Notes: Memoria Flush 0.9% 7-26 (Same as: l 15:08: BD [place] 00 Posiflush) pantoprazol 2019-0 Yes Notes: For [...] Infuse at l 14:00: a rate of [place] 00 10 mEq/hr. (Same as: KCL) ondansetron [...] mL 7-25 Rate: 100 l 13:29: ml/hr, [place] 00 Infuse over: 10 hr, Route: IV, Dosing Weight 68.409 kg, Total Volume: 1,000, Start date: 08/30/19 8:29:00 CDT, Duration: 30 day, Stop date: 09/29/19 8:28:00 CDT, 1.84, m2, 0 Sodium 2020-0 Yes 250 mL, Memoria Chloride 7-24 Route: l 0.9% IV 21:33: IVPB, [place] 00 Start date: 08/29/19 16:33:00 CDT, Duration: 30 day, Stop date: 09/28/19 16:32:00 CDT, PRN Line Flush, 0 Sodium 2020-0 Yes 250 mL, Memoria Chloride 7-24 Route: l 0.9% IV 21:33: IVPB, [place] Start date: 08/29/19 16:33:00 CDT, Duration: 30 day, Stop date: 09/28/19 16:32:00 CDT, PRN Line Flush, 0 Dextrose 2020-0 Yes 12.5 gm, Memor ia 50% Syringe 7-24 25 mL, l (D50W) 21:11: Route: [place] IVP, Drug Form: INJ, Dosing Weight 68.409, kg, PRN, PRN Blood Glucose Results, Start date: 08/29/19 16:11:00 CDT, Duration: 30 day, Stop date: 09/28/19 16:10:00 CDT, 0 Glucagon 2020-0 Yes 1 mg, Memoria 7-24 Route: IM, l 21:11: Drug form: [place] 00 PDR/INJ, PRN, Dosing Weight 68.409, kg, PRN Blood Glucose Results, Start date: 08/29/19 16:11:00 CDT, Duration: 30 day, Stop date: 09/28/19 16:10:00 CDT, 0 Dextrose 2020-0 Yes 12.5 gm, Memor ia 50% Syringe 7- 25 mL, l (D50W) 21:11: Route: [place] 00 IVP, Drug Form: INJ, Dosing Weight [...] Infuse at l 14:00: a rate of [place] 00 10 mEq/hr. (Same as: KCL) Potassium 2019-0 No Notes: Memori a Chloride 7-24 Infuse at l 14:00: a rate of Nigel 00 10 mEq/hr. (Same as: KCL) Lactulose 2019-0 No Notes: Memori a 667 MG/ML 7-24 (Same l Oral 02:57: as:Chronul [place] Solution 00 ac) Lactulose 2019-0 No Notes: Memori a 667 MG/ML 7-24 (Same l Oral 02:57: as:Chronul Nigel Solution 00 ac) Lactulose 2019-0 No Notes: Memori a 667 MG/ML 7-24 (Same l Oral 02:54: as:Chronul [place]el Solution 00 ac) Lactulose 2020-0 No Notes: Memori a 667 MG/ML 7-24 (Same l Oral 02:54: as:Chronul [place] Solution 00 ac) ondansetron 2020-0 Yes Notes: Guy zoila 7-23 (Same as: l 23:00: Zofran) [place] 00 MEDICATION WASTE Product Size: 4 mg Product Wasted: ___ mg ondansetron 2020-0 Yes Notes: Guy zoila 7-23 (Same as: l 23:00: Zofran) Nigel 00 MEDICATION WASTE Product Size: 4 mg Product Wasted: ___ mg Golytely 2020-0 No Notes: Memoria 7-23 (polyethyl l 19:31: avi glycol [place] 00 electrolyt e solution 4 Liter bottle) [...] tab, PO, l oral 07:35: Daily, # [place] enteric 00 30 tab, 0 coated Refill(s) [...] tab, PO, l oral 07:35: Daily, # [place] enteric 00 30 tab, 0 coated Refill(s) [...] l / 07:15: Duoneb) Nigel Ipratropium 00 [place] 0.167 MG/ML Inhalant Solution [DuoNeb] Docusate 2019-0 Yes Notes: Memoria Sodium 100 - (Same as: l MG Oral 07:15: Colace) Nigel Capsule 00 (Do Not [Colace] Crush) Robitussin 2019-0 Yes Notes: Memor ia 100 mg/5 mL - (Same as: l oral liquid 07:15: Robitussin Nigel 00 ) Zofran 2019-0 Yes Notes: Memoria 7-23 (Same as: l 07:15: Zofran) [place] 00 MEDICATION WASTE Product Size: 4 mg Product Wasted: ___ mg Hydralazine 2019-0 Yes Notes: Guy zoila - (Same as: l 07:15: Apresoline [place] 00 ) Push over 5 minutes Sodium 2020-0 No 1,000 mL, Memori a Chloride - Rate: 100 l 0.9% IV 07:15: ml/hr, [place] 1,000 mL 00 Infuse over: 10 hr, Route: IV, Dosing Weight 68.409 kg, Total Volume: 1,000, Start date: 08/28/19 2:15:00 CDT, Duration: 30 day, Stop date: 09/27/19 2:14:00 CDT, 1.84, m2, 0 Saline 2020-0 Yes Notes: Memoria Flush 0.9% 7- Same as: l 07:15: BD [place] 00 Posiflush Sterile Ondansetron 2020-0 Yes Notes: [...] -23 (Same as: l / 07:15: Duoneb) [place] Ipratropium 00 [place] 0.167 MG/ML Inhalant Solution [DuoNeb] Docusate 2020-0 Yes Notes: Memoria Sodium 100 7-23 (Same as: l MG Oral 07:15: Colace) [place] Capsule 00 (Do Not [Colace] Crush) Robitussin 2020-0 Yes Notes: Memor ia 100 mg/5 mL 7-23 (Same as: l oral liquid 07:15: Robitussin [place] 00 ) Zofran 2020-0 Yes Notes: Memoria 7-23 (Same as: l 07:15: Zofran) [place] 00 MEDICATION WASTE Product Size: 4 mg Product Wasted: ___ mg Hydralazine 2020-0 Yes Notes: Guy zoila 7-23 (Same as: l 07:15: Apresoline Nigel 00 ) Push over 5 minutes Sodium 2020-0 No 1,000 mL, Memori a Chloride 7-23 Rate: 100 l 0.9% IV 07:15: ml/hr, [place] 1,000 mL 00 Infuse over: 10 hr, Route: IV, Dosing Weight 68.409 kg, Total Volume: 1,000, Start date: 08/28/19 2:15:00 CDT, Duration: 30 day, Stop date: 09/27/19 2:14:00 CDT, 1.84, m2, 0 Saline 2020-0 Yes Notes: Memoria Flush 0.9% - Same as: l 07:15: BD [place] 00 Posiflush Sterile pantoprazol 2020-0 No Notes: For Memoria e - IV push l 07:07: reconstitu Nigel 00 te with 10 ml 0.9% sodium chloride and push over 2 minutes. (Same as: Protonix) Morphine 2020-0 Yes Notes: Memoria 7- (Same l 07:07: as:MORPhin [place] 00 e Sulfate) Labetalol 2019-0 Yes Notes: [...] e - IV push l 07:07: reconstitu [place] 00 te with 10 ml 0.9% sodium [...] moria IV 7-23 1,000 l 07:07: ml/hr, [place] 00 Infuse Over: 1 hr, Route: IV, 1,000, Drug form: INJ, ONCE, Priority: STAT, Dosing Weight 68.409 kg, Start date: 08/28/19 2:07:00 CDT, Stop date: 08/28/19 2:07:00 CDT, 0 Sodium 2020-0 No 1,000 mL, Memori a Chloride 7-23 1,000 l 0.9% 07:01: ml/hr, [place] (Bolus) IV 00 Infuse Over: 1 hr, [...] tab, PO, l tablet 17:00: ONCE, 0 [place] 00 Refill(s) ursodiol 2020-0 No 500 mg = 1 Mem oria 500 mg oral 7-22 tab, PO, l tablet 17:00: ONCE, 0 [place] 00 Refill(s) Esomeprazol 2020-0 No 40 mg, PO, Memoria e 7-22 Daily, 0 l 14:06: Refill(s) Nigel 00 ferrous 2020-0 No 325 mg = 1 Guy zoila sulfate 325 7-22 tab, PO, l MG Oral 14:06: BID, 0 [place] Tablet 00 Refill(s) Esomeprazol 2020-0 No 40 mg, PO, Memoria e 7-22 Daily, 0 l 14:06: Refill(s) Nigel 00 ferrous 2020-0 No 325 mg = 1 Guy zoila sulfate 325 7-22 tab, PO, l MG Oral 14:06: BID, 0 Nigel Tablet 00 Refill(s) ferrous 2018-02- No 1{tbl} Q.5D Take 1 [facility] sulfate 325 2-15 02-13 tablet by Mariah kes (65 FE) MG 00:00: 00:00 mouth 2 Med ical tablet 00 :00 (two) Center times daily. ferrous 2018-02- No 1{tbl} Q.5D Take 1 [facility] sulfate 325 2-15 02-13 tablet by Mariah kes (65 FE) MG 00:00: 00:00 mouth 2 Med ical tablet 00 :00 (two) Center times daily. ondansetron Yes 1{tbl} Take [address] (ZOFRAN-ODT 6-27 tablet by Marilyn es ) 4 MG 00:00: mouth Medical disintegrat 00 every 8 Cente r ing tablet (eight) hours as needed. ondansetron Yes 1{tbl} Take [address] (ZOFRAN-ODT 6-27 tablet by Marilyn es ) 4 MG 00:00: mouth Medical disintegrat 00 every 8 Cente r ing tablet (eight) hours as needed. Immunizations Ordered Immunization Filled Immunization Date Status Commen ts Source Name Name Influenza Four-QIV 2019-10-[address] [facility] 3YR+ (HOF413) 00:00:[address] [facility] Meningococcal 2019-10-[address] [facility] Conjugate [facility]:[address] [facility] Pneumococcal 2019-10-[address] [facility] Conjugate (Prevnar) 00:00:00 [facility] 13-Valent Influenza Four-QIV PF 2019-10-[address] [facility] 3YR+ ([id number]) 00:00:[address] [facility] Meningococcal 2019-10-[address] [facility] Conjugate 00:00:[address] [facility] Pneumococcal 2019-10-[address] [facility] Conjugate (Prevnar) 00:00:00 [facility] Meningococcal B, Omv 2019-10-[address] [facility] 00:00:[address] [facility] HiB 2019-10-[address] [facility] 00:00:[address] [facility] Meningococcal B, Omv 2019-10-[address] [facility] 00:00:[address] [facility] HiB 2019-10-[address] [facility] 00:00:[address] [facility] Vital Signs Vital Name Observation Time Observation Value Comments Source WEIGHT 2020-04-06 06:00:00 47.628 kg WEIGHT 2020-04-05 06:00:00 47.718 kg WEIGHT 2020-04-04 06:00:00 47.9 kg WEIGHT 2020-04-03 06:00:00 47.9 kg WEIGHT 2020-03-31 06:00:00 47.991 kg WEIGHT 2020-03-30 06:00:00 47.809 kg WEIGHT 2020-03-29 04:00:00 50.1 kg WEIGHT 2020-03-28 05:00:00 51.9 kg WEIGHT 2020-03-27 05:00:00 52 kg WEIGHT 2020-03-26 05:53:00 53 kg HEIGHT 2020-03-17 00:55:00 176 cm WEIGHT 2020-03-17 00:55:00 51.03 kg HEIGHT 2020-01-04 05:00:00 177.8 cm WEIGHT 2020-01-04 05:00:00 52.3 kg WEIGHT 2019-12-06 06:00:00 57.153 kg WEIGHT 2019-12-05 04:43:00 57.4 kg HEIGHT 2019-12-04 23:58:00 177.8 cm WEIGHT 2019-12-03 04:00:00 51.8 kg WEIGHT 2019-12-02 04:00:00 56.7 kg HEIGHT 2019-12-01 22:30:00 177.8 cm WEIGHT 2019-12-01 22:30:00 56.7 kg WEIGHT 2019-12-15 00:56:00 54.4 kg WEIGHT 2019-12-14 06:00:00 54.6 kg WEIGHT 2019-12-13 14:30:00 52.3 kg HEIGHT 2019-10-13 00:00:00 177.8 cm WEIGHT 2019-10-13 00:00:00 73 kg WEIGHT 2020-04-06 06:00:00 47.628 kg WEIGHT 2020-04-05 06:00:00 47.718 kg WEIGHT 2020-04-04 06:00:00 47.9 kg WEIGHT 2020-04-03 06:00:00 47.9 kg WEIGHT 2020-03-31 06:00:00 47.991 kg WEIGHT 2020-03-30 06:00:00 47.809 kg WEIGHT 2020-03-29 04:00:00 50.1 kg WEIGHT 2020-03-28 05:00:00 51.9 kg WEIGHT 2020-03-27 05:00:00 52 kg WEIGHT 2020-03-26 05:53:00 53 kg HEIGHT 2020-03-17 00:55:00 176 cm WEIGHT 2020-03-17 00:55:00 51.03 kg HEIGHT 2020-01-04 05:00:00 177.8 cm WEIGHT 2020-01-04 05:00:00 52.3 kg WEIGHT 2019-12-15 00:56:00 54.4 kg WEIGHT 2019-12-14 06:00:00 54.6 kg WEIGHT 2019-12-13 14:30:00 52.3 kg WEIGHT 2019-12-06 06:00:00 57.153 kg WEIGHT 2019-12-05 04:43:00 57.4 kg HEIGHT 2019-12-04 23:58:00 177.8 cm WEIGHT 2019-12-03 04:00:00 51.8 kg WEIGHT 2019-12-02 04:00:00 56.7 kg HEIGHT 2019-12-01 22:30:00 177.8 cm WEIGHT 2019-12-01 22:30:00 56.7 kg HEIGHT 2019-10-13 00:00:00 177.8 cm WEIGHT 2019-10-13 00:00:00 73 kg Systolic blood 2020-04-06 11:28:00 109 mm[Hg] [facility] Diastolic blood 2020-04-06 11:28:00 70 mm[Hg] [facility] Heart rate 2020-04-06 11:28:00 79 /min [facility] Body temperature 2020-04-06 11:28:00 35.56 [place] [facility] Respiratory rate 2020-04-06 11:28:00 18 /min [facility] Oxygen saturation in 2020-04-06 11:28:00 100 /min [facility] Arterial blood by Medical Ce nter Pulse oximetry Body weight 2020-04-06 06:00:00 47.628 kg [facility] BMI 2020-04-06 06:00:00 15.38 kg/m2 [facility] Body height 2020-03-17 00:55:00 176 cm [facility] Heart Rate 2019-09-01 04:14:00 [facility] Respitory Rate 2019-09-01 04:14:00 [facility] Systolic (mm Hg) 2019-09-01 04:14:00 [facility] Diastolic (mm Hg) 2019-09-01 04:14:00 [facility] Respitory Rate 2019-09-01 01:19:00 [facility] Temperature Oral (F) 2019-09-01 00:33:00 99.1 F [facility] Heart Rate 2019-09-01 00:33:00 [facility] Respitory Rate 2019-09-01 00:33:00 [facility] Systolic (mm Hg) 2019-09-01 00:33:00 [facility] Diastolic (mm Hg) 2019-09-01 00:33:00 [facility] Temperature Oral (F) 2019-08-31 21:00:00 98.3 F [facility] Heart Rate 2019-08-31 21:00:00 [facility] Systolic (mm Hg) 2019-08-31 21:00:00 [facility] Diastolic (mm Hg) 2019-08-31 21:00:00 [facility] Temperature Oral (F) 2019-08-31 17:00:00 98.4 F [facility] Height 2019-08-28 06:22:00 [facility] 2019-08-28 06:22:00 [facility] BMI Calculated 2019-08-28 06:22:00 [facility] Procedures Procedure Date / Time Performed Performing Clinician Sour e BASIC METABOLIC PANEL (7) 2020-04-05 05:40:00 Rios Alberts [facility] CALCIUM, IONIZED 2020-04-05 05:40:00 Rios Alberts [facility] PHOSPHORUS 2020-04-05 05:40:00 Rios Alberts [facility] CBC W/PLT COUNT & AUTO 2020-04-05 05:40:00 Rios Alberts [facility] MAGNESIUM 2020-04-05 05:40:00 Rios Alberts [facility] CBC W/PLT COUNT & AUTO 2020-04-05 05:40:[address] [facility] BASIC METABOLIC PANEL (7) 2020-04-03 06:14:00 Darrick Ahmed Nasi f [facility] MAGNESIUM 2020-04-03 06:14:00 Darrick, Ahmed Nasif [facility] PHOSPHORUS 2020-04-03 06:14:00 Darrick, Ahmed Nasif [facility] COMPREHENSIVE METABOLIC 2020-04-02 15:32:00 [facility] PHOSPHORUS 2020-04-02 15:32:00 [facility] MAGNESIUM 2020-04-02 15:32:00 [facility] IR GASTROSTOMY TUBE 2020-04-01 18:15:00 Darrick, Deb Chan [facility] INSERTION W/[facility]ORO Medical Cent[facility] r CBC W/PLT COUNT & AUTO 2020-04-01 09:59:00 Darrick, Deb Gamingif [facility] CBC W/PLT COUNT & AUTO 2020-04-01 09:59:00 Darrick Seramed Nasif [facility] (CELLAVISION MANUAL DIFF) 2020-04-01 09:59:00 DarrickDeb Nasi f [facility] PROTHROMBIN TIME/INR 2020-04-01 03:49:00 Larisa Swenson [facility] POCT-GLUCOSE METER 2020-03-31 11:38:00 DarrickDeb mead [facility] REPORT OF PROCEDURE - 2020-03-31 11:27:53 Iam Powell [facility] ENDOSCOPY [facility] UPPER ENDOSCOPY 2020-03-31 10:05:00 Iam Powell [facility] BASIC METABOLIC PANEL (7) 2020-03-31 04:36:00 Larisa Swenson [facility] CBC (HEMOGRAM ONLY) 2020-03-31 04:36:00 [facility] PROTHROMBIN TIME/INR 2020-03-31 04:36:00 [facility] XR ABDOMEN / KUB 1 VIEW 2020-03-30 16:10:00 [facility] BASIC METABOLIC PANEL (7) 2020-03-30 05:51:00 Larisa Swenson [facility] CBC W/PLT COUNT & AUTO 2020-03-30 05:51:00 Larisa Swenson [facility] CBC W/PLT COUNT & AUTO 2020-03-30 05:51:00 Larisa Swenson [facility] POCT-GLUCOSE METER 2020-03-29 11:13:00 Oscar [facility] [place] CT ABDOMEN/PELVIS WITH IV 2020-03-29 09:32:00 Randolph Arevalo [facility] POCT-GLUCOSE METER 2020-03-29 07:45:00 [facility] BASIC METABOLIC PANEL (7) 2020-03-29 04:16:00 Larisa Swenson [facility] CBC W/PLT COUNT & AUTO 2020-03-29 04:16:00 Larisa Swenson [facility] CBC W/PLT COUNT & AUTO 2020-03-29 04:16:00 Larisa Swenson [facility] POCT-GLUCOSE METER 2020-03-28 18:15:00 [facility] POCT-GLUCOSE METER 2020-03-28 11:28:00 [facility] BASIC METABOLIC PANEL (7) 2020-03-28 05:33:00 Larisa Swenson [facility] CBC W/PLT COUNT & AUTO 2020-03-28 05:33:00 Larisa Swenson [facility] CBC W/PLT COUNT & AUTO 2020-03-28 05:33:00 Larisa Swenson [facility] POCT-GLUCOSE METER 2020-03-27 12:08:00 Oscar [facility] POCT-GLUCOSE METER 2020-03-27 07:58:00 Oscar [facility] CBC W/PLT COUNT & AUTO 2020-03-27 05:28:00 Larisa Swenson [facility] CBC W/PLT COUNT & AUTO 2020-03-27 05:28:00 Larisa Swenson [facility] BASIC METABOLIC PANEL (7) 2020-03-27 05:27:00 Larisa Swenson [facility] MAGNESIUM 2020-03-27 05:27:00 Oscar [facility] XR ABDOMEN / KUB 1 VIEW 2020-03-27 03:14:00 Oscar [facility] POCT-GLUCOSE METER 2020-03-26 23:45:00 Oscar [facility] XR ABDOMEN / KUB 1 VIEW 2020-03-26 23:08:00 Oscar [facility] POCT-GLUCOSE METER 2020-03-26 17:21:00 Oscar [facility] POCT-GLUCOSE METER 2020-03-26 11:22:00 Oscar [facility] BASIC METABOLIC PANEL (7) 2020-03-26 05:52:00 Larisa Swenson [facility] MAGNESIUM 2020-03-26 05:52:00 Julianne Merlyemiliano Mariela [facility] CBC W/PLT COUNT & AUTO 2020-03-26 04:46:00 Larisa Swenson [facility] CBC W/PLT COUNT & AUTO 2020-03-26 04:46:00 Larisa Swenson [facility] BASIC METABOLIC PANEL (7) 2020-03-25 06:28:00 Larisa Swenson [facility] CBC W/PLT COUNT & AUTO 2020-03-25 06:28:00 Larisa Swenson [facility] MAGNESIUM 2020-03-25 06:28:00 [facility] CBC W/PLT COUNT & AUTO 2020-03-25 06:28:00 Larisa Swenson [facility] POCT-GLUCOSE METER 2020-03-24 23:04:00 Oscar [facility] POCT-GLUCOSE METER 2020-03-24 21:28:00 Oscar [facility] XR ABDOMEN / KUB 1 VIEW 2020-03-24 13:21:00 [facility] BASIC METABOLIC PANEL (7) 2020-03-24 04:35:00 Larisa Swenson [facility] CBC W/PLT COUNT & AUTO 2020-03-24 04:35:00 Larisa Swenson [facility] MAGNESIUM 2020-03-24 04:35:00 [facility] HEPATIC FUNCTION PANEL 2020-03-24 04:35:00 [facility] CBC W/PLT COUNT & AUTO 2020-03-24 04:35:00 Larisa Swenson [facility] CT ABDOMEN - PANCREAS 2020-03-23 10:44:00 [facility] BASIC METABOLIC PANEL (7) 2020-03-23 05:16:00 Larisa Swenson [facility] CBC W/PLT COUNT & AUTO 2020-03-23 05:16:00 Larisa Swenson [facility] HEPATIC FUNCTION PANEL 2020-03-23 05:16:00 [facility] CBC W/PLT COUNT & AUTO 2020-03-23 05:16:00 Larisa Swenson [facility] BASIC METABOLIC PANEL (7) 2020-03-22 04:21:00 Larisa Swenson [facility] CBC W/PLT COUNT & AUTO 2020-03-22 04:21:00 Larisa Swenson [facility] CBC W/PLT COUNT & AUTO 2020-03-22 04:21:00 Larisa Swenson [facility] (CELLAVISION MANUAL DIFF) 2020-03-22 04:21:00 Larisa Swenson [facility] BASIC METABOLIC PANEL (7) 2020-03-21 04:29:00 Larisa Swenson [facility] CBC W/PLT COUNT & AUTO 2020-03-21 04:29:00 Larisa Swenson [facility] CBC W/PLT COUNT & AUTO 2020-03-21 04:29:00 Larisa Swenson [facility] C. DIFFICILE GDH TOXIN 2020-03-20 16:22:00 Musa Whitaker [facility] BASIC METABOLIC PANEL () 2020-03-20 07:51:00 Larisa Swenson [facility] CBC W/PLT COUNT & AUTO 2020-03-20 05:21:00 Larisa Swenson [facility] CBC W/PLT COUNT & AUTO 2020-03-20 05:21:00 Larisa Swenson [facility] BASIC METABOLIC PANEL () 2020-03-19 04:52:00 Larisa Swenson [facility] CBC W/PLT COUNT & AUTO 2020-03-19 04:52:00 Larisa Swenson [facility] CBC W/PLT COUNT & AUTO 2020-03-19 04:52:00 Larisa Swenson [facility] BASIC METABOLIC PANEL () 2020-03-18 04:38:00 Larisa Swenson [facility] CBC W/PLT COUNT & AUTO 2020-03-18 04:38:00 Larisa Swenson [facility] CBC W/PLT COUNT & AUTO 2020-03-18 04:38:00 Larisa Swenson [facility] CBC W/PLT COUNT & AUTO 2020-03-17 05:28:00 Larisa Swenson [facility] CBC W/PLT COUNT & AUTO 2020-03-17 05:28:00 Larisa Swenson [facility] COMPREHENSIVE METABOLIC 2020-03-17 05:27:00 Larisa Swenson [facility] Plan of Care Planned Activity Planned Date Details Comments Source Future Scheduled 2020-10-06 INFLUENZA VACCINE (#1) [facility]:00 [code = INFLUENZA Medical Ce nter VACCINE (#1)] Future Scheduled 2020-10-06 INFLUENZA VACCINE (#1) [facility] 00:00:00 [code = INFLUENZA Medical Ce nter VACCINE (#1)] Future Scheduled 2020-02-[address] [facility] 00:00:00 (12+) [code = Medical Center DEPRESSION SCREENING (12+)] Future Scheduled 2020-02-[address] [facility] 00:00:00 (12+) [code = Medical Center DEPRESSION SCREENING (12+)] Future Scheduled 2019-12-[address] [facility] 00:00:00 0-64 YRS (1 of 2 - Medical C enter PPSV23) [code = PNEUMOCOCCAL VACCINE 0-64 YRS (1 of 2 - PPSV23)] Future Scheduled 2019-12-[address] [facility] 00:00:00 0-64 YRS (1 of 2 - Medical C enter PPSV23) [code = PNEUMOCOCCAL VACCINE 0-64 YRS (1 of 2 - PPSV23)] Future Scheduled 2008-01-25 DTAP/TDAP/TD VACCINES [facility] 00:[facility]:00 (1 - Tdap) [code = Medical C enter DTAP/TDAP/TD VACCINES (1 - Tdap)] Future Scheduled 2008-01-25 DTAP/TDAP/TD VACCINES [facility] 00:00:00 (1 - Tdap) [code = Medical C enter DTAP/TDAP/TD VACCINES (1 - Tdap)] Future Scheduled 2007 HEPATITIS C SCREENING [facility] 00:00:00 [code = HEPATITIS C Medical Center SCREENING] Future Scheduled 2007 HEPATITIS C [facility]CRE[facility]ING [facility]:00:00 [code = HEPATITIS C Medical Center SCREENING] Future Scheduled 2001 COVID-19 VACCINE (1) [facility] 00:00:00 [code = COVID-[address] VACCINE (1)] Future Scheduled 2001 COVID-19 VACCINE (1) [facility] 00:00:00 [code = COVID-[address] VACCINE (1)] Encounters Start End Encounter Admission Attending Care Care Encounter Source Date/Time Date/Time Type Type Clinicians Facility Department ID 2020-11-13 Inpatient ER , [facility] Gastro [id number] SLE 03:03:31 CARMEN 2020-11-12 Inpatient ER ERIBERTO, [facility] Gastro [id number] SLE 18:03:45 JETT 2020-11-10 Inpatient ER ISMAEL [facility] Medical ICU [id number] SLE 12:31:00 ALVARO ALBERT 2020-11-10 [facility] [id number] [facility] 01[facility]30 [facility] 2020-11-10 Inpatient UR [facility] Gastro [id number] [facility] 00[facility]42[facility]15 [facility] 2019-12-13 Inpatient ER BROOKS [facility] Gastro [id number] SLE 14:11:00 NAHUN OLIVEIRA 2019-10-14 Outpatient VIRGINIA ROWLEY [facility] [address] [facility] 12:19:08 2019-10-13 Inpatient ER PENNIE, [facility] Gastro [id number] SLE 21:28:00 TEGAN 2020-09-29 2020-09-29 Refill Aristeo, [facility] [id number] 00:00[facility]00 00:00:00 [facility] 2020-04-29 2020-04-29 Refill Parkatelynn, [facility] [id number] 00:00[facility]00 00:00:00 [facility] 2020-04-26 2020-04-26 Refill Aristeo, [facility] [id number] 00:00[facility]00 00:00:00 [facility] 2020-03-16 2020-04-06 [facility] Carmen Sánchez [facility] [id number] [facility] 22:12:00 13:27:[address] [facility] Oscar, [facility] Aristeo, Peter Chadwick 2020-03-31 2020-03-31 Anesthesia Redd Zheng [facility] [id number] 10:15:00 11:37:00 Event Fuentes Tamayo Ramona [facility] 2020-03-31 2020-03-31 Surgery Jawaid, [facility] [id number] 10:00:00 11:00:00 [facility] 2020-03-17 2020-03-17 Travel [facility] [id number] [facility] 00:00:00 [facility] 2020-03-16 2020-03-16 [facility] , [facility] [id number] 00:00:00 00:00:00 Only [facility] 2019-09-02 2019-09-10 Inpatient Erick REEVES, [facility] MED [address] [facility] 05:03:00 17:30:00 JAVIER 2019-08-28 2019-09-02 Inpatient MURALI [facility] [address] [facility] 00:57:00 04:30:00 TESS 2019-08-28 2019-08-28 Inpatient [facility] [id number] Memoria 05:57:00 05:57:00 cade Manning [address] [place] [address] 2019-08-28 2019-08-28 Inpatient [facility] [id number] Memoria 05:57:00 [facility]57:[facility] [address] [place] [address] Results Test Description Test Time Test Comments Results Result Comments Source Basic Metabolic Panel 2020-04-05 06:41:00 Test Item Value Reference Range Interpretation Comme nts Sodium (test code = 142 meq/L 569-861 5612-2) Potassium (test code = 3.7 meq/L 3.5-5.1 2823-3) Chloride (test code = 106 meq/L 98-107 5-0) CO2 (test code = 2027-) 29 meq/L 22-29 BUN (test code = 3094-0) 3 mg/dL 7-21 L Creatinine (test code = 0.46 mg/dL 0.57-1.25 L 2160-0) Glucose (test code = 118 mg/dL 70-105 H 2345-7) Calcium (test code = 8.4 mg/dL 8.4-10.2 12981-5) EGFR (test code = 90220-6) 214 mL/min/1.73 sq m ESTIMATED GFR IS NOT ACCURATE CREATININE DEQUAN JONATHAN IN PREDICTING GLOMERULAR FILT RATION RATE. ESTIMATED GFR IS NOT APPLICAB LE FOR DIALYSIS PATIEN TS. ABAD (test code = ABAD) Fitter Type Bar And Segment ID - SOTERO M Lab Interpretation (test Abnormal code = 89528-0) [facility] 06[facility]41:00 Test Item Value Reference Range Interpretation Comments Magnesium (test code = 1.5 mg/dL 1.6-2.6 L 90053-4) ABAD (test code = ABAD) Fitter Type Bar And Segment ID - SOTERO M Lab Interpretation (test Abnormal code = 03622-1) [facility] 06:41:00 Test Item Value Reference Range Interpretation Comments Phosphorus (test code = 3.7 mg/dL 2.3-4.7 2777-1) ABAD (test code = ABAD) Fitter Type Bar And Segment ID - SOTERO M Lab Interpretation (test Normal code = 72568-6) [facility] [id number] 06:41:00 Test Item Value Reference Range Interpretation Comments Sodium (test code = 142 meq/L 319-768 8684-2) Potassium (test code = 3.7 meq/L 3.5-5.1 2823-3) Chloride (test code = 106 meq/L 98-107 2074-0) CO2 (test code = 29 meq/L 22-29 2027-10) BUN (test code = 3 mg/dL 7-21 L 3094-0) Creatinine (test code 0.46 mg/dL 0.57-1.25 L = 2160-0) Glucose (test code = 118 mg/dL 70-105 H 2345-7) Calcium (test code = 8.4 mg/dL 8.4-10.2 96275-6) EGFR (test code = 214 mL/min/1.73 [place] [address]-8) NOT ACCURATE CREATININE CLEARANCE IN PREDICTING GLOMERULAR FILTRATION RATE . ESTIMATED GFR I S NOT APPLICABLE FOR DIALYSIS PATIENTS. ABAD (test code = ABAD) Fitter Type Bar And Segment ID - SOTERO M Lab Interpretation Abnormal (test code = 96215-2) [facility] 06:41:00 Test Item Value Reference Range Interpretation Comments Magnesium (test code = 1.5 mg/dL 1.6-2.6 L 63437-5) ABAD (test code = ABAD) Fitter Type Bar And Segment ID - SOTERO M Lab Interpretation (test Abnormal code = 17969-5) [facility] 06:41:00 Test Item Value Reference Range Interpretation Comments Phosphorus (test code = 3.7 mg/dL 2.3-4.7 2777-1) ABAD (test code = ABAD) Fitter Type Bar And Segment ID - SOTERO M Lab Interpretation (test Normal code = 89615-0) [facility]OLIC [id number] 06:41:00 Test Item Value Reference Range Interpretation [...] L (test code = 358) GLUCOSE RANDOM 118 mg/dL 70-105 H (BEAKER) (test code = 652) CALCIUM (BEAKER) 8.4 mg/dL 8.4-10.2 (test code = 697) EGFR (BEAKER) (test 214 mL/min/1.73 ESTIM ATED GFR IS code = 1092) sq m NOT ACCURATE CREATININE CLEARANCE IN PREDICTING GLOMERULAR FILTRATION RATE . ESTIMATED GFR I S NOT APPLICABLE FOR DIALYSIS PATIEN TS. Fitter Type Bar And Segment ID - SOTERO [id number] 06:41:00 Test Item Value Reference Range Interpretation Comments MAGNESIUM (BEAKER) (test code = 1.5 mg/dL 1.6-2.6 L 627) Fitter Type Bar And Segment ID - SOTERO [id number] 06:41:00 Test Item Value Reference Range Interpretation Comments PHOSPHORUS (BEAKER) (test code = 3.7 mg/dL 2.3-4.7 604) Fitter Type Bar And Segment ID - SOTERO MCalcium, [id number] 06:09:00 Test Item Value Reference Range Interpretation Comments Calcium, Ion (test code = 1993-) 1.16 mmol/L 1.12-1.27 pH, Blood (test code = 71119-8) 7.43 [facility], [id number] 06:09:00 Test Item Value Reference Range Interpretation Comments Calcium, Ion (test code = 1993-) 1.16 mmol/L 1.12-1.27 pH, Blood (test code = 83872-3) 7.43 [facility], [id number] 06:09:00 Test Item Value Reference Range Interpretation Comments CALCIUM IONIZED (BEAKER) (test 1.16 mmol/L 1.12-1.27 code = 698) PH, BLOOD (BEAKER) (test code = 7.43 1810) CBC with platelet count + automated [id number] 06:03:00 Test Item Value Reference Range Interpretation Comments WBC (test code = 6690-2) 5.6 See_Comment [A utomated message] The system [employer] generated this result transmitted ref erence range: 3.5 - 10 .5 K/L. The refe rence range was not u sed to interpret this result as normal/abnor mal. RBC (test code = 789-8) 3.12 See_Comment L [Au tomated message] The system [employer] generated this result transmitted ref erence range: 4.63 - 6 .08 M/L. The refe rence range was not u sed to interpret this result as normal/abnor mal. MCHC (test code = 786-4) 34.1 See_Comment L [A utomated message] The system [employer] generated this result transmitted ref erence range: 32.3 - 3 6.5 GM/DL. The refe rence range was not u sed to interpret this result as normal/abnor mal. Hematocrit (test code = 27.0 % 40.1-51.0 L 4544-3) MCV (test code = 787-2) 86.5 fL 79.0-92.2 MCH (test code = 785-6) 29.5 pg 25.7-32.2 RDW (test code = 788-0) 19.6 % 11.6-14.4 H Platelets (test code = 487 See_Comment H [Aut omated message] 777-3) The system [employer] generated this result transmitted ref erence range: 150 - 45 0 K/CU MM. The referen ce range was not u sed to interpret this result as normal/abnor mal. MPV (test code = 9.9 fL 9.4-12.4 54566-2) nRBC (test code = 413) 0 See_Comment [Aut omated message] The system [employer] generated this result transmitted ref erence range: 0 - 0 /1 00 WBC. The refere nce range was not u sed to interpret this result as normal/abnor mal. % Neutros (test code = 56 % 429) % Lymphs (test code = 21 % 430) % Monos (test code = 13 % 431) % Eos (test code = 432) 10 % % Baso (test code = 437) 1 % # Neutros (test code = 3.08 See_Comment [Aut omated message] 670) The system [employer] generated this result transmitted ref erence range: 1.78 - 5 .38 K/L. The refe rence range was not u sed to interpret this result as normal/abnor mal. # Lymphs (test code = 1.14 See_Comment L [Auto mated message] 414) The system [employer] generated this result transmitted ref erence range: 1.32 - 3 .57 K/L. The refe rence range was not u sed to interpret this result as normal/abnor mal. # Monos (test code = 0.70 See_Comment [Autom ated message] 415) The system [employer] generated this result transmitted ref erence range: 0.30 - 0 .82 K/L. The refe rence range was not u sed to interpret this result as normal/abnor mal. # Eos (test code = 416) 0.57 See_Comment H [Au tomated message] The system [employer] generated this result transmitted ref erence range: 0.04 - 0 .54 K/L. The refe rence range was not u sed to interpret this result as normal/abnor mal. # Baso (test code = 417) 0.05 See_Comment [A utomated message] The system [employer] generated this result transmitted ref erence range: 0.01 - 0 .08 K/L. The refe rence range was not u sed to interpret this result as normal/abnor mal. Immature 0 % 0-1 Granulocytes-Relative (test code = 2801) Lab Interpretation (test Abnormal code = 02578-7) [facility] with platelet count + automated [id number] 06:03:00 Test Item Value Reference Range Interpretation Comments WBC (test code = 6690-2) 5.6 See_Comment [A utomated message] The system [employer] generated this result transmitted ref erence range: 3.5 - 10 .5 K/L. The refe rence range was not u sed to interpret this result as normal/abnor mal. RBC (test code = 789-8) 3.12 See_Comment L [Au tomated message] The system [employer] generated this result transmitted ref erence range: 4.63 - 6 .08 M/L. The refe rence range was not u sed to interpret this result as normal/abnor mal. MCHC (test code = 786-4) 34.1 See_Comment L [A utomated message] The system [employer] generated this result transmitted ref erence range: 32.3 - 3 6.5 GM/DL. The refe rence range was not u sed to interpret this result as normal/abnor mal. Hematocrit (test code = 27.0 % 40.1-51.0 L 4544-3) MCV (test code = 787-2) 86.5 fL 79.0-92.2 MCH (test code = 785-6) 29.5 pg 25.7-32.2 RDW (test code = 788-0) 19.6 % 11.6-14.4 H Platelets (test code = 487 See_Comment H [Aut omated message] 777-3) The system [employer] generated this result transmitted ref erence range: 150 - 45 0 K/CU MM. The referen ce range was not u sed to interpret this result as normal/abnor mal. MPV (test code = 9.9 fL 9.4-12.4 61494-4) nRBC (test code = 413) 0 See_Comment [Aut omated message] The system [employer] generated this result transmitted ref erence range: 0 - 0 /1 00 WBC. The refere nce range was not u sed to interpret this result as normal/abnor mal. % Neutros (test code = 56 % 429) % Lymphs (test code = 21 % 430) % Monos (test code = 13 % 431) % Eos (test code = 432) 10 % % Baso (test code = 437) 1 % # Neutros (test code = 3.08 See_Comment [Aut omated message] 670) The system [employer] generated this result transmitted ref erence range: 1.78 - 5 .38 K/L. The refe rence range was not u sed to interpret this result as normal/abnor mal. # Lymphs (test code = 1.14 See_Comment L [Auto mated message] 414) The system [employer] generated this result transmitted ref erence range: 1.32 - 3 .57 K/L. The refe rence range was not u sed to interpret this result as normal/abnor mal. # Monos (test code = 0.70 See_Comment [Autom ated message] 415) The system [employer] generated this result transmitted ref erence range: 0.30 - 0 .82 K/L. The refe rence range was not u sed to interpret this result as normal/abnor mal. # Eos (test code = 416) 0.57 See_Comment H [Au tomated message] The system [employer] generated this result transmitted ref erence range: 0.04 - 0 .54 K/L. The refe rence range was not u sed to interpret this result as normal/abnor mal. # Baso (test code = 417) 0.05 See_Comment [A utomated message] The system [employer] generated this result transmitted ref erence range: 0.01 - 0 .08 K/L. The refe rence range was not u sed to interpret this result as normal/abnor mal. Immature 0 % 0-1 Granulocytes-Relative (test code = 2801) Lab Interpretation (test Abnormal code = 40985-0) [facility] W/PLT COUNT & AUTO [id number] 06:03:00 Test Item Value Reference Range Interpretation Comments WHITE BLOOD CELL COUNT (BEAKER) 5.6 K/ L 3.5-10.5 (test code = 775) RED BLOOD CELL COUNT (BEAKER) 3.12 M/ L 4.63-6.08 L (test code = 761) HEMOGLOBIN (BEAKER) (test code = 9.2 GM/DL 13.7-17.5 L 410) HEMATOCRIT (BEAKER) (test code = 27.0 % 40.1-51.0 L 411) MEAN CORPUSCULAR VOLUME (BEAKER) 86.5 fL 79.0-92.2 (test code = 753) MEAN CORPUSCULAR HEMOGLOBIN 29.5 pg 25.7-32.2 (BEAKER) (test code = 751) MEAN CORPUSCULAR HEMOGLOBIN CONC 34.1 GM/DL 32.3-36.5 (BEAKER) (test code = 752) RED CELL DISTRIBUTION WIDTH 19.6 % 11.6-14.4 H (BEAKER) (test code = 412) PLATELET COUNT (BEAKER) (test 487 K/CU MM 150-450 H code = 756) MEAN PLATELET VOLUME (BEAKER) 9.9 fL 9.4-12.4 (test code = 754) NUCLEATED RED BLOOD CELLS 0 /100 WBC 0-0 (BEAKER) (test code = 413) NEUTROPHILS RELATIVE PERCENT 56 % (BEAKER) (test code = 429) LYMPHOCYTES RELATIVE PERCENT 21 % (BEAKER) (test code = 430) MONOCYTES RELATIVE PERCENT 13 % (BEAKER) (test code = 431) EOSINOPHILS RELATIVE PERCENT 10 % (BEAKER) (test code = 432) BASOPHILS RELATIVE PERCENT 1 % (BEAKER) (test code = 437) NEUTROPHILS ABSOLUTE COUNT 3.08 K/ L 1.78-5.38 (BEAKER) (test code = 670) LYMPHOCYTES ABSOLUTE COUNT 1.14 K/ L 1.32-3.57 L (BEAKER) (test code = 414) MONOCYTES ABSOLUTE COUNT (BEAKER) 0.70 K/ L 0.30-0.82 (test code = 415) EOSINOPHILS ABSOLUTE COUNT 0.57 K/ L 0.04-0.54 H (BEAKER) (test code = 416) BASOPHILS ABSOLUTE COUNT (BEAKER) 0.05 K/ L 0.01-0.08 (test code = 417) IMMATURE GRANULOCYTES-RELATIVE 0 % 0-1 PERCENT (BEAKER) (test code = 2801) BASIC METABOLIC [id number] 07:25:00 Test Item Value Reference Range Interpretation Comments SODIUM (BEAKER) 137 meq/L 136-145 (test code = 381) POTASSIUM (BEAKER) 3.6 meq/L 3.5-5.1 (test code = 379) CHLORIDE (BEAKER) 100 meq/L 98-107 (test code = 382) CO2 (BEAKER) (test 28 meq/L 22-29 code = 355) BLOOD UREA NITROGEN 6 mg/dL 7-21 L (BEAKER) (test code = 354) CREATININE (BEAKER) 0.49 mg/dL 0.57-1.25 L (test code = 358) GLUCOSE RANDOM 88 mg/dL 70-105 (BEAKER) (test code = 652) CALCIUM (BEAKER) 8.6 mg/dL 8.4-10.2 (test code = 697) EGFR (BEAKER) (test 199 mL/min/1.73 ESTIM ATED GFR IS code = 1092) sq m NOT ACCURATE CREATININE CLEARANCE IN PREDICTING GLOMERULAR FILTRATION RATE . ESTIMATED GFR I S NOT APPLICABLE FOR DIALYSIS PATIEN TS. F[employer] Type Bar [employer] Segment ID - [id number] 07:25:00 Test Item Value Reference Range Interpretation Comments MAGNESIUM (BEAKER) (test code = 1.5 mg/dL 1.6-2.6 L 627) [employer] Segment ID - [id number] 07:25:00 Test Item Value Reference Range Interpretation Comments PHOSPHORUS (BEAKER) (test code = 4.0 mg/dL 2.3-4.7 604) [employer] Bar [employer] Segment ID - EDASIComprehensive metabolic [id number] 16:00:00 Test Item Value Reference Range Interpretation Comments Protein, Total (test 6.6 See_Comment Specime n code = 2885-2) moderately hemolyzed [Automated message] The system which generated this result transmit leti reference range : 6.0 - 8.3 gm/dL . The reference range was not u sed to interpret th is result as normal/abnormal . Albumin (test code = 2.5 g/dL 3.5-5.0 [place] [address]-0) moderately hemolyzed Alkaline Phosphatase 86 U/L 40-150 (test code = 6768-6) Total Bilirubin (test 0.4 mg/dL 0.2-1.2 Specim en code = 1974-2) moderately hemolyzed Sodium (test code = 135 meq/L 136-145 L 2951-2) Potassium (test code 4.4 meq/L 3.5-5.1 Specime n = 2823-3) moderately hemolyzed Chloride (test code = 98 meq/L 98-107 2075-0) CO2 (test code = 26 meq/L 22-29 8-9) BUN (test code = 8 mg/dL 7-21 3094-0) Creatinine (test code 0.53 mg/dL 0.57-1.25 L Specim en = 2160-0) moderately hemolyzed Glucose (test code = 78 mg/dL 70-105 2345-7) Calcium (test code = 8.5 mg/dL 8.4-10.2 62939-8) AST (test code = 26 U/L 5-34 Specimen 1920-8) moderately hemolyzed ALT (test code = 7 U/L 6-55 Specimen 1742-6) moderately hemolyzed EGFR (test code = 181 mL/min/1.[place] [address]-6) NOT ACCURATE CREATININE CLEARANCE IN PREDICTING GLOMERULAR FILTRATION RATE . ESTIMATED GFR I S NOT APPLICABLE FOR DIALYSIS PATIEN ABAD (test code = ABAD) F[employer] Type Bar And Segment ID - ADMIN Lab Interpretation Abnormal (test code = 02000-8) [facility] [id number] 16:00:00 Test Item Value Reference Range Interpretation Comments Protein, Total (test 6.6 See_Comment Specime n code = 2885-2) moderately hemolyzed [Automated message] The system which generated this result transmit leti reference range : 6.0 - 8.3 gm/dL . The reference range was not u sed to interpret th is result as normal/abnormal . Albumin (test code = 2.5 g/dL 3.5-5.0 [place] n [address]-2) moderately hemolyzed Alkaline Phosphatase 86 U/L 40-150 (test code = 6768-6) Total Bilirubin (test 0.4 mg/dL 0.2-1.2 Specim en code = 1975-2) moderately hemolyzed Sodium (test code = 135 meq/L 136-145 L 2951-2) Potassium (test code 4.4 meq/L 3.5-5.1 Specime n = 2823-3) moderately hemolyzed Chloride (test code = 98 meq/L 98-107 2075-0) CO2 (test code = 26 meq/L 22-29 2028-9) BUN (test code = 8 mg/dL 7-21 3094-0) Creatinine (test code 0.53 mg/dL 0.57-1.25 L Specim en = 2160-0) moderately hemolyzed Glucose (test code = 78 mg/dL 70-105 2345-7) Calcium (test code = 8.5 mg/dL 8.4-10.2 09500-4) AST (test code = 26 U/L 5-34 Specimen 1920-8) moderately hemolyzed ALT (test code = 7 U/L 6-55 Specimen 1742-6) moderately hemolyzed EGFR (test code = 181 mL/min/1.[place] [address]-3) NOT ACCURATE CREATININE CLEARANCE IN PREDICTING GLOMERULAR FILTRATION RATE . ESTIMATED GFR I S NOT APPLICABLE FOR DIALYSIS PATIEN TS. ABAD (test code = ABAD) [employer] Bar And Segment ID - ADMIN Lab Interpretation Abnormal (test code = 13894-4) [id number] 16:00:00 Test Item Value Reference Range Interpretation Comments MAGNESIUM (BEAKER) 1.7 mg/dL 1.6-2.6 Specimen moderately (test code = 627) hemolyzed [employer] Seg[employer] ID - [id number] 16:00:00 Test Item Value Reference Range Interpretation Comments PHOSPHORUS (BEAKER) 4.0 mg/dL 2.3-4.7 Specimen moderately (test code = 604) hemolyzed [employer] Bar [employer] Segment ID - ADMINCOMPREHENSIVE METABOLIC [id number] 16:00:00 Test Item Value Reference Range Interpretation Comments TOTAL PROTEIN 6.6 gm/dL 6.0-8.3 Specimen moder ately (BEAKER) (test code = hemoly zed 770) ALBUMIN (BEAKER) 2.5 g/dL 3.5-5.0 L Specimen mo derately (test code = 1145) hemolyzed ALKALINE PHOSPHATASE 86 U/L 40-150 (BEAKER) (test code = 346) BILIRUBIN TOTAL 0.4 mg/dL 0.2-1.2 Specimen mod erately (BEAKER) (test code = hemoly zed 377) SODIUM (BEAKER) (test 135 meq/L 136-145 L code = 381) POTASSIUM (BEAKER) 4.4 meq/L 3.5-5.1 Specimen moderately (test code = 379) hemolyzed CHLORIDE (BEAKER) 98 meq/L 98-107 (test code = 382) CO2 (BEAKER) (test 26 meq/L 22-29 code = 355) BLOOD UREA NITROGEN 8 mg/dL 7-21 (BEAKER) (test code = 354) CREATININE (BEAKER) 0.53 mg/dL 0.57-1.25 L Specimen moderately (test code = 358) hemolyzed GLUCOSE RANDOM 78 mg/dL 70-105 (BEAKER) (test code = 652) CALCIUM (BEAKER) 8.5 mg/dL 8.4-10.2 (test code = 697) AST (SGOT) (BEAKER) 26 U/L 5-34 Specimen moderately (test code = 353) hemolyzed ALT (SGPT) (BEAKER) 7 U/L 6-55 Specimen moderately (test code = 347) hemolyzed EGFR (BEAKER) (test 181 ESTIMATE D GFR IS code = 1092) mL/min/1.73 sq NOT ACCURA TE m CREATININE CLEARANCE IN PREDICTING GLOMERULAR FILTRATION RATE . ESTIMATED GFR I S NOT APPLICABLE FOR DIALYSIS PATIEN TS. [employer] Segment ID - ADMINANG, INSERTION G TUBE, W/ [id number] 08:18:00Reason for exam:->PEG-J tube. GI unable to place due to "too much scar tissue and couldn't get needle through" [facility] CENTERName: [place]OLA [place] : 1990 Sex: MFINAL REPORT Fluoroscopic guided gastrostomy tube placement, 04/01/2020. Clinical History: Pancreatitis. Modality: Fluoroscopy. Rn Radiation: Beryl. Facility Assistant: Charlie. Sedation: Versed 1 mg and fentanyl 50 mcg was given intravenously for moderate sedation. The patient's vital signs were monitored throughout the procedure and recorded to the patient's medical record by the nurse. Total intra-service time of sedation was 60 minutes. Other medication: None. Estimated Blood Loss: Less than 1 cc. Specimen: None. Fluoro Time: 21.9 min. Dose (Ka,r): 154 mGy. Technique: Discussion ofrisks, benefits, and alternatives were made with the patient's business center representative. The patient rafael verduzco expressed understanding and agreed to proceed. After informed consent was obtained, which included the risks of bleeding, infection, injury to adjacent structures/bowel, adverse medication reaction, the patient's abdomen was prepped and draped in the usual sterile manner. All elements maximal sterile barrier technique was utilized for this procedure, including utilization of sterile scrub solution for skin prep, a large sterile sheet to cover the areas of the patient that were not prepped, and hand hygiene, mask, head covering, and sterile gown for performing radiologist and scrub technologist. Local anesthesia was achieved with 2% lidocaine, the stomach was insufflated with air via the NG tube. A 19-gauge needle was advanced into the mid-body of the stomach under fluoroscopic guidance. Aspiration of air and injection of contrast confirmed positioning within the stomach. An Amplatz wire wasadvanced through the needle and curled within the gastric antrum. A 7 Belgian 25 cm sheath was advanced over the wire into the stomach. Through this sheath as well as a 7 Belgian up and over flexor sheath, multiple efforts at advancing the wire and various 4 and 5 Belgian catheters past the pylorus into the duodenum and jejunum were made without success. After a small skin incision was made, the soft tissue tract was created with serial dilators. After the tract was dilated, a 14 Belgian catheter was suzi renan into the stomach. The wire was then removed, and the pigtail of the catheter was locked. The catheter was then secured onto the skin with 2-0 silk. The patient tolerated the procedure well, withoutimmediate complications. The patient's vital signs remained stable throughout the procedure. Patient disposition: The patient was discharged from the department in stable condition. Impression:Successful and uncomplicated fluoroscopic guided gastrostomy tube placement, with conscious sedation. Attempts at advancing a catheter beyond the pylorus were unsuccessful due to the usual position of the pylorus as well as duodenal stricture. Additional attempt at placing a gastrojejunostomy tube may be attempted in conjunction with the GI service with the use of the Spyglass scope. Signed: Heath Hendrickson MDReport Verified Date/Time: 04/02/2020 08:18:35 Reading Location: [address] Reading Room Manual [id number] 12:33:00 Test Item Value Reference Range Interpretation Comments % Neutros (test code = 57 % 281) % Lymphs (test code = 8 % 2817) % Monos (test code = 19 % 2818) % Eos (test code = 2819) 3 % % Baso (test code = 1 % 0) % Bands (test code = 12 % 0-10 H 2825) # Neutros (test code = 5.24 K/ul 1.78-5.38 2830) # Lymphs (test code = 0.74 K/ul 1.32-3.57 L 2831) # Monos (test code = 1.75 K/uL 0.30-0.82 H 2832) # Eos (test code = 2834) 0.28 K/uL 0.04-0.54 # Baso (test code = 0.09 K/uL 0.01-0.08 H 2835) # Bands (test code = 1.10 K/uL 0.00-0.80 H 2840) Total Counted (test code 100 = 1351) WBC Morphology (test Normal code = 487) Platelet Morphology Normal (test code = 486) Anisocytosis (test code 1+ few = 961) Macrocytes (test code = 1+ few 964) Poikilocytes (test code 1+ few = 966) Target Cells (test code 1+ few = 480) Artifact (test code = Present 3432) Platelet Conc (test code Increased = 3438) ABAD (test code = ABAD) [employer] Segment ID - Jennie OverholtUser comments: Slide comments: Lab Interpretation (test Abnormal code = 82062-6) [facility] Center[facility]ual [id number] 12:33:00 Test Item Value Reference Range Interpretation Comments % Neutros (test code = 57 % 2816) % Lymphs (test code = 8 % 2817) % Monos (test code = 19 % 2818) % Eos (test code = 2819) 3 % % Baso (test code = 1 % 2820) % Bands (test code = 12 % 0-10 H 2826) # Neutros (test code = 5.24 K/ul 1.78-5.38 2830) # Lymphs (test code = 0.74 K/ul 1.32-3.57 L 2831) # Monos (test code = 1.75 K/uL 0.30-0.82 H 2832) # Eos (test code = 2834) 0.28 K/uL 0.04-0.54 # Baso (test code = 0.09 K/uL 0.01-0.08 H 2835) # Bands (test code = 1.10 K/uL 0.00-0.80 H 2840) Total Counted (test code 100 = 1351) WBC Morphology (test Normal code = 487) Platelet Morphology Normal (test code = 486) Anisocytosis (test code 1+ few = 961) Macrocytes (test code = 1+ few 964) Poikilocytes (test code 1+ few = 966) Target Cells (test code 1+ few = 480) Artifact (test code = Present 3432) Platelet Conc (test code Increased = 3438) ABAD (test code = ABAD) [employer] Bar And Segment ID - Jennie OverholtUser comments: Slide comments: Lab Interpretation (test Abnormal code = 30026-2) [facility] W/PLT COUNT & AUTO [id number] 12:33:00 Test Item Value Reference Range Interpretation Comments WHITE BLOOD CELL COUNT (BEAKER) 9.2 K/ L 3.5-10.5 (test code = 775) RED BLOOD CELL COUNT (BEAKER) 3.86 M/ L 4.63-6.08 L (test code = 761) HEMOGLOBIN (BEAKER) (test code = 11.4 GM/DL 13.7-17.5 L 410) HEMATOCRIT (BEAKER) (test code = 34.1 % 40.1-51.0 L 411) MEAN CORPUSCULAR VOLUME (BEAKER) 88.3 fL 79.0-92.2 (test code = 753) MEAN CORPUSCULAR HEMOGLOBIN 29.5 pg 25.7-32.2 (BEAKER) (test code = 751) MEAN CORPUSCULAR HEMOGLOBIN CONC 33.4 GM/DL 32.3-36.5 (BEAKER) (test code = 752) RED CELL DISTRIBUTION WIDTH 20.7 % 11.6-14.4 H (BEAKER) (test code = 412) PLATELET COUNT (BEAKER) (test 465 K/CU MM 150-450 H code = 756) MEAN PLATELET VOLUME (BEAKER) 11.2 fL 9.4-12.4 (test code = 754) NUCLEATED RED BLOOD CELLS 0 /100 WBC 0-0 (BEAKER) (test code = 413) (CELLAVISION MANUAL DIFF)2020-04-01 12:33:00 Test Item Value Reference Range Interpretation Comments NEUTROPHILS - REL 57 % (CELLAVISION)(BEAKER) (test code = 2816) LYMPHOCYTES - REL 8 % (CELLAVISION)(BEAKER) (test code = 2817) MONOCYTES - REL 19 % (CELLAVISION)(BEAKER) (test code = 2818) EOSINOPHILS - REL 3 % (CELLAVISION)(BEAKER) (test code = 2819) BASOPHILS - REL 1 % (CELLAVISION)(BEAKER) (test code = 2820) BANDS - REL (CELLAVISION)(BEAKER) 12 % 0-10 H (test code = 2826) NEUTROPHILS - ABS 5.24 K/ul 1.78-5.38 (CELLAVISION)(BEAKER) (test code = 2830) LYMPHOCYTES - ABS 0.74 K/ul 1.32-3.57 L (CELLAVISION)(BEAKER) (test code = 2831) MONOCYTES - ABS 1.75 K/uL 0.30-0.82 H (CELLAVISION)(BEAKER) (test code = 2832) EOSINOPHILS - ABS 0.28 K/uL 0.04-0.54 (CELLAVISION)(BEAKER) (test code = 2834) BASOPHILS - ABS 0.09 K/uL 0.01-0.08 H (CELLAVISION)(BEAKER) (test code = 2835) BANDS - ABS (CELLAVISION)(BEAKER) 1.10 K/uL 0.00-0.80 H (test code = 2840) TOTAL COUNTED (BEAKER) (test code = 100 1351) WBC MORPHOLOGY (BEAKER) (test code Normal = 487) PLT MORPHOLOGY (BEAKER) (test code Normal = 486) ANISOCYTOSIS (BEAKER) (test code = 1+ few 961) MACROCYTES (BEAKER) (test code = 1+ few 964) POIKILOCYTES (BEAKER) (test code = 1+ few 966) TARGET CELLS (BEAKER) (test code = 1+ few 480) ARTIFACT (CELLAVISION)(BEAKER) Present (test code = 3432) PLATELET CONCENTRATION Increased (CELLAVISION)(BEAKER) (test code = 3438) [employer] Seg[employer] ID - Jennie OverholtUser comments: Slide comments:Prothrombin time/INR 2020-04-01 04:48:00 Test Item Value Reference Interpretation Comments Range Protime (test code = 13.7 See_Comment [Autom ated 5902-2) message] The system which generated this result transmitted reference range : 11.9 - 14.2 seconds. The reference range was not used to interpret this result as normal/abnormal . INR (test code = 1.09 See_Comment [Automated 6301-6) message] The system which [...] patients wiht mechanical heart valves. Lab Interpretation Normal (test code = 74232-8) [facility] CenterProthrombin time/[id number] 04:48:00 Test Item Value Reference Interpretation Comments Range Protime (test code = 13.7 See_Comment [Autom ated 5902-2) message] The system which generated this result transmitted reference range : 11.9 - 14.2 seconds. The reference range was not used to interpret this result as normal/abnormal . INR (test code = 1.09 See_Comment [Automated 6301-6) message] The system which [...] patients wiht mechanical heart valves. Lab Interpretation Normal (test code = 42908-4) [facility] CenterPROTHROMBIN TIME/[id number] 04:48:00 Test Item Value Reference Range Interpretation Comments PROTIME (BEAKER) 13.7 seconds 11.9-14.2 (test code = 759) INR (BEAKER) (test 1.09 See_Comment [Automat ed message] code = 370) The system [employer] generated this result transmitted ref erence range: <=5.90. The reference range was not used to int erpret this result as normal/abnormal . Effective 07/03/2018: PT Reference Range ChangeNew: 11.9-14.2 Previous: 11.7- 14.7RECOMMENDED COUMADIN/WARFARIN INR THERAPY RANGESSTANDARD DOSE: 2.0-3.0 Includes: PROPHYLAXIS for venous thrombosis, systemic embolization; TREATMENT for venous thrombosis and/or pulmonary embolus.HIGH RISK: Target INR is 2.5-3.5 for patients wiht mechanical heart valves.POC-Glucose [id number] 11:51:00 Test Item Value Reference Range Interpretation Comments POC-Glucose Meter (test 94 mg/dL 70-110 : No tified RN/MD: code = 1538) TESTED AT [address], [facility] 30: Fitter Type Bar And Segment/Techni romain ID = [id number] for [place], [place] l Lab Interpretation (test Normal code = 83581-3) [facility] [id number] 11:51:00 Test Item Value Reference Range Interpretation Comments POC-Glucose Meter (test 94 mg/dL 70-110 : No tified RN/MD: code = 1538) TESTED AT [address], [facility] 30: Fitter Type Bar And Segment/Techni romain ID = [id number] for [place], [place] l Lab Interpretation (test Normal code = 30465-3) [facility]-GLUCOSE [id number] 11:51:00 Test Item Value Reference Range Interpretation Comments POC-GLUCOSE METER 94 mg/dL 70-110 : Notified RN/MD: TESTED (BEAKER) (test code = AT [address] 1538) [facility], [facility] 30: Fitter Type Bar And Segment/Techni romain ID = [id number] for Simm ons, Anna RAD, ABDOMEN/KUB, 1 VIEW [id number] 08:03:00Reason for exam:->Assess NGT positioningDES[facility] [place] : 1990 Sex: MFINAL REPORT RAD, ABDOMEN/KUB, 1 VIEW AP INDICATION: Assess NGT positioning COMPARISON: None TECHNIQUE: Limited portable radiograph of the lower chest and upper abdomen was acquired for purposes of evaluating tube tube placement FINDINGS:NG side-port overlies the stomach Signed: Vera Fowler MDReport Verified Date/Time: 03/31/2020 08:03:13 Reading Location: [facility] Radiology Reading Room BASIC METABOLIC [id number] 06:04:00 Test Item Value Reference Range Interpretation Comments SODIUM (BEAKER) 138 meq/L 136-145 (test code = 381) POTASSIUM (BEAKER) 4.3 meq/L 3.5-5.1 (test code = 379) CHLORIDE (BEAKER) 100 meq/L 98-107 (test code = 382) CO2 (BEAKER) (test 29 meq/L 22-29 code = 355) BLOOD UREA NITROGEN 6 mg/dL 7-21 L (BEAKER) (test code = 354) CREATININE (BEAKER) 0.48 mg/dL 0.57-1.25 L (test code = 358) GLUCOSE RANDOM 87 mg/dL 70-105 (BEAKER) (test code = 652) CALCIUM (BEAKER) 8.8 mg/dL 8.4-10.2 (test code = 697) EGFR (BEAKER) (test 203 mL/min/1.73 ESTIM ATED GFR IS code = 1092) sq m NOT ACCURATE CREATININE CLEARANCE IN PREDICTING GLOMERULAR FILTRATION RATE . ESTIMATED GFR I S NOT APPLICABLE FOR DIALYSIS PATIEN TS. Fitter Type Bar And Segment ID - PIAYA LPROTHROMBIN TIME/[id number] 05:54:00 Test Item Value Reference Range Interpretation Comments PROTIME (BEAKER) 13.0 seconds 11.9-14.2 (test code = 759) INR (BEAKER) (test 1.02 See_Comment [Automat ed message] code = 370) The system [employer] generated this result transmitted ref erence range: <=5.90. The reference range was not used to int erpret this result as normal/abnormal . Effective 07/03/2018: PT Reference Range ChangeNew: 11.9-14.2 Previous: 11.7- 14.7RECOMMENDED COUMADIN/WARFARIN INR THERAPY RANGESSTANDARD DOSE: 2.0-3.0 Includes: PROPHYLAXIS for venous thrombosis, systemic embolization; TREATMENT for venous thrombosis and/or pulmonary embolus.HIGH RISK: Target INR is 2.5-3.5 for patients wiht mechanical heart valves.CBC (Hemogram only)2020-03-31 05:45:00 Test Item Value Reference Range Interpretation Comments WBC (test code = 6690-2) 5.2 See_Comment [A utomated message] The system [employer] generated this result transmitted ref erence range: 3.5 - 10 .5 K/L. The refe rence range was not u sed to interpret this result as normal/abnor mal. RBC (test code = 789-8) 3.78 See_Comment L [Au tomated message] The system [employer] generated this result transmitted ref erence range: 4.63 - 6 .08 M/L. The refe rence range was not u sed to interpret this result as normal/abnor mal. MCHC (test code = 786-4) 33.5 See_Comment L [A utomated message] The system [employer] generated this result transmitted ref erence range: 32.3 - 3 6.5 GM/DL. The refe rence range was not u sed to interpret this result as normal/abnor mal. Hematocrit (test code = 33.4 % 40.1-51.0 L 4544-3) MCV (test code = 787-2) 88.4 fL 79.0-92.2 MCH (test code = 785-6) 29.6 pg 25.7-32.2 RDW (test code = 788-0) 20.6 % 11.6-14.4 H Platelets (test code = 542 See_Comment H [Aut omated message] 407-3) The system [employer] generated this result transmitted ref erence range: 150 - 45 0 K/CU MM. The referen ce range was not u sed to interpret this result as normal/abnor mal. MPV (test code = 10.9 fL 9.4-12.4 24126-2) nRBC (test code = 413) 0 See_Comment [Aut omated message] The system [employer] generated this result transmitted ref erence range: 0 - 0 /1 00 WBC. The refere nce range was not u sed to interpret this result as normal/abnor mal. Lab Interpretation (test Abnormal code = 44838-9) [facility] (Hemogram only)2020-03-31 05:45:00 Test Item Value Reference Range Interpretation Comments WBC (test code = 6690-2) 5.2 See_Comment [A utomated message] The system [employer] generated this result transmitted ref erence range: 3.5 - 10 .5 K/L. The refe rence range was not u sed to interpret this result as normal/abnor mal. RBC (test code = 789-8) 3.78 See_Comment L [Au tomated message] The system [employer] generated this result transmitted ref erence range: 4.63 - 6 .08 M/L. The refe rence range was not u sed to interpret this result as normal/abnor mal. MCHC (test code = 786-4) 33.5 See_Comment L [A utomated message] The system [employer] generated this result transmitted ref erence range: 32.3 - 3 6.5 GM/DL. The refe rence range was not u sed to interpret this result as normal/abnor mal. Hematocrit (test code = 33.4 % 40.1-51.0 L 4544-3) MCV (test code = 787-2) 88.4 fL 79.0-92.2 MCH (test code = 785-6) 29.6 pg 25.7-32.2 RDW (test code = 788-0) 20.6 % 11.6-14.4 H Platelets (test code = 542 See_Comment H [Aut omated message] 777-3) The system [employer] generated this result transmitted ref erence range: 150 - 45 0 K/CU MM. The referen ce range was not u sed to interpret this result as normal/abnor mal. MPV (test code = 10.9 fL 9.4-12.4 61527-5) nRBC (test code = 413) 0 See_Comment [Aut omated message] The system [employer] generated this result transmitted ref erence range: 0 - 0 /1 00 WBC. The refere nce range was not u sed to interpret this result as normal/abnor mal. Lab Interpretation (test Abnormal code = 30668-6) [facility] (HEMOGRAM ONLY)2020-03-31 05:45:00 Test Item Value Reference Range Interpretation Comments WHITE BLOOD CELL COUNT (BEAKER) 5.2 K/ L 3.5-10.5 (test code = 775) RED BLOOD CELL COUNT (BEAKER) 3.78 M/ L 4.63-6.08 L (test code = 761) HEMOGLOBIN (BEAKER) (test code = 11.2 GM/DL 13.7-17.5 L 410) HEMATOCRIT (BEAKER) (test code = 33.4 % 40.1-51.0 L 411) MEAN CORPUSCULAR VOLUME (BEAKER) 88.4 fL 79.0-92.2 (test code = 753) MEAN CORPUSCULAR HEMOGLOBIN 29.6 pg 25.7-32.2 (BEAKER) (test code = 751) MEAN CORPUSCULAR HEMOGLOBIN CONC 33.5 GM/DL 32.3-36.5 (BEAKER) (test code = 752) RED CELL DISTRIBUTION WIDTH 20.6 % 11.6-14.4 H (BEAKER) (test code = 412) PLATELET COUNT (BEAKER) (test 542 K/CU MM 150-450 H code = 756) MEAN PLATELET VOLUME (BEAKER) 10.9 fL 9.4-12.4 (test code = 754) NUCLEATED RED BLOOD CELLS 0 /100 WBC 0-0 (BEAKER) (test code = 413) CT, [id number] 10:04:00Pancreas fluid collectionUnlisted Reason for Exam - Click Yes and Enter Reason Below->NoWill thisprocedure require oral contrast?->No[facility]OLA [place] : 1990 Sex: MFINAL REPORT TECHNIQUE: CT of the abdomen and pelvis WITH intravenous contrast andWITHOUT oral contrast. Dose modulation, iterative reconstruction, and/or weight-based adjustment of the mA/kV was utilized to reduce the radiation dose to as low as reasonably achievable. INDICATION: Abdominal infection suspected. COMPARISON: CT from 03/23/2020. FINDINGS: LOWER THORAX: The right pleural effusion has decreased in size and is small. Trace left pleural effusion. Mild bibasilar atelectasis. HEPATOBILIARY: There is pneumobilia and some scattered areas of hyperenhancement which are wedge-shaped and most likely reactive to inflammation. SPLEEN: Prior splenectomy.PANCREAS: The pancreatic nec k is mildly hypoenhancing. There is dilation of the duct in the pancreatic body. ADRENALS: No adrenal nodules.KIDNEYS/URETERS: No hydronephrosis, stones, or masses.PELVIC ORGANS/BLADDER: Unremarkable. PERITONEUM/RETROPERITONEUM: An area of walled off necrosis in the left upper quadrant which extends along the peritoneal reflection and into the splenectomy bed is small and similar in size the prior examination. The small collection of fluid adjacent to the second portion of the duodenum measures 1.1 cm and is new. Trace ascites along the right paracolic gutter. LYMPH NODES: No lymphadenopathy.VESSELS: The main portal vein is either severely narrowed or occluded. GI TRACT: Biopsy clip in the gastricfundus. The stomach is distended with fluid and has a transition at the pylorus/first portion the duodenum. The pylorus, first portion the duodenum, and second portion of the duodenum are thickened with surrounding inflammatory change. NG tube with tip in the gastric cardia. The proximal sidehole is in the lower esophagus. Diffuse thickening of the rectum. The appendix is normal. The mild thickening of the right colon is nonspecific but may be due to underdistention. BONES AND SOFT TISSUES: Unremarkable. IMPRESSION: 1.The stomach is distended with thickening inflammatory change of the gastric pylorus and proximal duodenum. This could be due to gastritis/duodenitis but is indeterminate. 2.The diffuse thickening of the rectum is nonspecific but could be due to proctitis or a mass depending on clinical setting. Consider further evaluation with either proctoscopy or a digital rectal examination. 3.Asmall peripancreatic fluid collection adjacent to the second portion the duodenum measures 1.1 cm and is new. 4.The walled off necrosis in the left upper quadrant is similar to the prior examination. 5.A trace amount of ascites courses along the right paracolic gutter. 6.The hypoenhancement in the pancreatic neck may be due to acute pancreatitis. The dilation of the main pancreatic duct in the body is similar to prior examinations and most likely due to a stricture. Close attention on follow-up imaging is recommended. 7.The main portal vein is either severely narrowed or occluded. 8.There are inflammatory changes in the liver. 9.The proximal sidehole of the NG tube is in the lower esophagus, considered advancement by 5 cm. 10.The bilateral pleural effusions have decreased in size and are small onthe right and trace on the left. Signed: Josef Maurer [facility] Verified Date/Time: 03/30/2020 10:04:38Reading Location: [facility] Diagnostic Imaging Reading Room - [place] [address] BASIC METABOLIC [id number] 06:38:00 Test Item Value Reference Range Interpretation [...] (test code = 697) EGFR (BEAKER) (test 214 mL/min/1.73 ESTIM ATED GFR IS code = 1092) sq m NOT ACCURATE CREATININE CLEARANCE IN PREDICTING GLOMERULAR FILTRATION RATE . ESTIMATED GFR I S NOT APPLICABLE FOR DIALYSIS PATIEN TS. Fitter Type Bar And Segment ID - SOTERO MCBC W/PLT COUNT & AUTO [id number] 06:17:00 Test Item Value Reference Range Interpretation Comments WHITE BLOOD CELL COUNT (BEAKER) 6.1 K/ L 3.5-10.5 (test code = 775) RED BLOOD CELL COUNT (BEAKER) 3.55 M/ L 4.63-6.08 L (test code = 761) HEMOGLOBIN (BEAKER) (test code = 10.4 GM/DL 13.7-17.5 L 410) HEMATOCRIT (BEAKER) (test code = 31.5 % 40.1-51.0 L 411) MEAN CORPUSCULAR VOLUME (BEAKER) 88.7 fL 79.0-92.2 (test code = 753) MEAN CORPUSCULAR HEMOGLOBIN 29.3 pg 25.7-32.2 (BEAKER) (test code = 751) MEAN CORPUSCULAR HEMOGLOBIN CONC 33.0 GM/DL 32.3-36.5 (BEAKER) (test code = 752) RED CELL DISTRIBUTION WIDTH 20.4 % 11.6-14.4 H (BEAKER) (test code = 412) PLATELET COUNT (BEAKER) (test 512 K/CU MM 150-450 H code = 756) MEAN PLATELET VOLUME (BEAKER) 10.8 fL 9.4-12.4 (test code = 754) NUCLEATED RED BLOOD CELLS 0 /100 WBC 0-0 (BEAKER) (test code = 413) NEUTROPHILS RELATIVE PERCENT 54 % (BEAKER) (test code = 429) LYMPHOCYTES RELATIVE PERCENT 19 % (BEAKER) (test code = 430) MONOCYTES RELATIVE PERCENT 18 % (BEAKER) (test code = 431) EOSINOPHILS RELATIVE PERCENT 9 % (BEAKER) (test code = 432) BASOPHILS RELATIVE PERCENT 1 % (BEAKER) (test code = 437) NEUTROPHILS ABSOLUTE COUNT 3.24 K/ L 1.78-5.38 (BEAKER) (test code = 670) LYMPHOCYTES ABSOLUTE COUNT 1.12 K/ L 1.32-3.57 L (BEAKER) (test code = 414) MONOCYTES ABSOLUTE COUNT (BEAKER) 1.08 K/ L 0.30-0.82 H (test code = 415) EOSINOPHILS ABSOLUTE COUNT 0.52 K/ L 0.04-0.54 (BEAKER) (test code = 416) BASOPHILS ABSOLUTE COUNT (BEAKER) 0.08 K/ L 0.01-0.08 (test code = 417) IMMATURE GRANULOCYTES-RELATIVE 0 % 0-1 PERCENT (BEAKER) (test code = 2801) POCT-GLUCOSE [id number] 11:25:00 Test Item Value Reference Range Interpretation Comments POC-GLUCOSE METER 93 mg/dL 70-110 : TESTED A T [facility] 6720 (BEAKER) (test code = [facility], 1538) [id number]: Fitter Type Bar And Segment/Techni romain ID = [id number] for GIO BUTLERRIA POCT-GLUCOSE [id number] 07:58:00 Test Item Value Reference Range Interpretation Comments POC-GLUCOSE METER 84 mg/dL 70-110 : TESTED A T [facility] 6720 (BEAKER) (test code = [facility], 1538) [id number]: Fitter Type Bar And Segment/Techni romain ID = [id number] for YOMAIRAI S [place] BASIC METABOLIC [id number] 05:25:00 Test Item Value Reference Range Interpretation Comments [...] L (test code = 358) GLUCOSE RANDOM 80 mg/dL 70-105 (BEAKER) (test code = 652) CALCIUM (BEAKER) 8.3 mg/dL 8.4-10.2 L (test code = 697) EGFR (BEAKER) (test 219 mL/min/1.73 ESTIM ATED GFR IS code = 1092) sq m NOT ACCURATE CREATININE CLEARANCE IN PREDICTING GLOMERULAR FILTRATION RATE . ESTIMATED GFR I S NOT APPLICABLE FOR DIALYSIS PATIEN TS. Fitter Type Bar And Segment ID - ADMINCBC W/PLT COUNT & AUTO [id number] 05:11:00 Test Item Value Reference Range Interpretation Comments WHITE BLOOD CELL COUNT (BEAKER) 6.9 K/ L 3.5-10.5 (test code = 775) RED BLOOD CELL COUNT (BEAKER) 3.57 M/ L 4.63-6.08 L (test code = 761) HEMOGLOBIN (BEAKER) (test code = 10.6 GM/DL 13.7-17.5 L 410) HEMATOCRIT (BEAKER) (test code = 30.6 % 40.1-51.0 L 411) MEAN CORPUSCULAR VOLUME (BEAKER) 85.7 fL 79.0-92.2 (test code = 753) MEAN CORPUSCULAR HEMOGLOBIN 29.7 pg 25.7-32.2 (BEAKER) (test code = 751) MEAN CORPUSCULAR HEMOGLOBIN CONC 34.6 GM/DL 32.3-36.5 (BEAKER) (test code = 752) RED CELL DISTRIBUTION WIDTH 20.9 % 11.6-14.4 H (BEAKER) (test code = 412) PLATELET COUNT (BEAKER) (test 570 K/CU MM 150-450 H code = 756) MEAN PLATELET VOLUME (BEAKER) 11.2 fL 9.4-12.4 (test code = 754) NUCLEATED RED BLOOD CELLS 0 /100 WBC 0-0 (BEAKER) (test code = 413) NEUTROPHILS RELATIVE PERCENT 57 % (BEAKER) (test code = 429) LYMPHOCYTES RELATIVE PERCENT 18 % (BEAKER) (test code = 430) MONOCYTES RELATIVE PERCENT 16 % (BEAKER) (test code = 431) EOSINOPHILS RELATIVE PERCENT 8 % (BEAKER) (test code = 432) BASOPHILS RELATIVE PERCENT 1 % (BEAKER) (test code = 437) NEUTROPHILS ABSOLUTE COUNT 3.88 K/ L 1.78-5.38 (BEAKER) (test code = 670) LYMPHOCYTES ABSOLUTE COUNT 1.26 K/ L 1.32-3.57 L (BEAKER) (test code = 414) MONOCYTES ABSOLUTE COUNT (BEAKER) 1.07 K/ L 0.30-0.82 H (test code = 415) EOSINOPHILS ABSOLUTE COUNT 0.54 K/ L 0.04-0.54 (BEAKER) (test code = 416) BASOPHILS ABSOLUTE COUNT (BEAKER) 0.08 K/ L 0.01-0.08 (test code = 417) IMMATURE GRANULOCYTES-RELATIVE 0 % 0-1 PERCENT (BEAKER) (test code = 2801) POCT-GLUCOSE [id number] 18:27:00 Test Item Value Reference Range Interpretation Comments POC-GLUCOSE METER 106 mg/dL 70-110 : TESTED A T [facility] 6720 (BEAKER) (test code = [facility] [employer] [facility], 1538) [id number]: Fitter Type Bar And Segment/Techni romain ID = [id number] for TALISHA CORONA POCT-GLUCOSE [id number] 11:41:00 Test Item Value Reference Range Interpretation Comments POC-GLUCOSE METER 114 mg/dL 70-110 H : TESTED A T [facility] 6720 (BEAKER) (test code = [employer] [facility], 1538) [id number]: Fitter Type Bar And Segment/Techni romain ID = [id number] for TALISHA CORONA BASIC METABOLIC [id number] 06:33:00 Test Item Value Reference Range Interpretation Comments SODIUM (BEAKER) 139 meq/L 136-145 (test code = 381) POTASSIUM (BEAKER) 3.8 meq/L 3.5-5.1 (test code = 379) CHLORIDE (BEAKER) 103 meq/L 98-107 (test code = 382) CO2 (BEAKER) (test 31 meq/L 22-29 H code = 355) BLOOD UREA NITROGEN 2 mg/dL 7-21 L (BEAKER) (test code = 354) CREATININE (BEAKER) 0.50 mg/dL 0.57-1.25 L (test code = 358) GLUCOSE RANDOM 103 mg/dL 70-105 (BEAKER) (test code = 652) CALCIUM (BEAKER) 7.8 mg/dL 8.4-10.2 L (test code = 697) EGFR (BEAKER) (test 194 mL/min/1.73 ESTIM ATED GFR IS code = 1092) sq m NOT ACCURATE CREATININE CLEARANCE IN PREDICTING GLOMERULAR FILTRATION RATE . ESTIMATED GFR I S NOT APPLICABLE FOR DIALYSIS PATIEN TS. Fitter Type Bar And Segment ID - BSCBC W/PLT COUNT & AUTO [id number] 06:00:00 Test Item Value Reference Range Interpretation Comments WHITE BLOOD CELL COUNT (BEAKER) 7.2 K/ L 3.5-10.5 (test code = 775) RED BLOOD CELL COUNT (BEAKER) 3.50 M/ L 4.63-6.08 L (test code = 761) HEMOGLOBIN (BEAKER) (test code = 10.3 GM/DL 13.7-17.5 L 410) HEMATOCRIT (BEAKER) (test code = 29.8 % 40.1-51.0 L 411) MEAN CORPUSCULAR VOLUME (BEAKER) 85.1 fL 79.0-92.2 (test code = 753) MEAN CORPUSCULAR HEMOGLOBIN 29.4 pg 25.7-32.2 (BEAKER) (test code = 751) MEAN CORPUSCULAR HEMOGLOBIN CONC 34.6 GM/DL 32.3-36.5 (BEAKER) (test code = 752) RED CELL DISTRIBUTION WIDTH 20.5 % 11.6-14.4 H (BEAKER) (test code = 412) PLATELET COUNT (BEAKER) (test 600 K/CU MM 150-450 H code = 756) MEAN PLATELET VOLUME (BEAKER) 11.0 fL 9.4-12.4 (test code = 754) NUCLEATED RED BLOOD CELLS 0 /100 WBC 0-0 (BEAKER) (test code = 413) NEUTROPHILS RELATIVE PERCENT 61 % (BEAKER) (test code = 429) LYMPHOCYTES RELATIVE PERCENT 14 % (BEAKER) (test code = 430) MONOCYTES RELATIVE PERCENT 16 % (BEAKER) (test code = 431) EOSINOPHILS RELATIVE PERCENT 8 % (BEAKER) (test code = 432) BASOPHILS RELATIVE PERCENT 1 % (BEAKER) (test code = 437) NEUTROPHILS ABSOLUTE COUNT 4.40 K/ L 1.78-5.38 (BEAKER) (test code = 670) LYMPHOCYTES ABSOLUTE COUNT 1.03 K/ L 1.32-3.57 L (BEAKER) (test code = 414) MONOCYTES ABSOLUTE COUNT (BEAKER) 1.14 K/ L 0.30-0.82 H (test code = 415) EOSINOPHILS ABSOLUTE COUNT 0.56 K/ L 0.04-0.54 H (BEAKER) (test code = 416) BASOPHILS ABSOLUTE COUNT (BEAKER) 0.08 K/ L 0.01-0.08 (test code = 417) IMMATURE GRANULOCYTES-RELATIVE 0 % 0-1 PERCENT (BEAKER) (test code = 2801) [id number] 14:45:00 Test Item Value Reference Range Interpretation Comments MAGNESIUM (BEAKER) (test code = 1.7 mg/dL 1.6-2.6 627) Fitter Type Bar And Segment ID - BSPOCT-GLUCOSE [id number] 12:23:00 Test Item Value Reference Range Interpretation Comments POC-GLUCOSE METER 88 mg/dL 70-110 : TESTED A T [facility] 6720 (BEAKER) (test code = [facility] [employer] [facility], 1538) [id number]: Fitter Type Bar And Segment/Techni romain ID = [id number] for TEZE NO, NITA POCT-GLUCOSE [id number] 08:22:00 Test Item Value Reference Range Interpretation Comments POC-GLUCOSE METER 81 mg/dL 70-110 : TESTED A T [facility] 6720 (BEAKER) (test code = [facility] [employer] [facility], 1538) [id number]: Fitter Type Bar And Segment/Techni romain ID = [id number] for TEZE NO, NITA BASIC METABOLIC [id number] 07:40:00 Test Item Value Reference Range Interpretation Comments SODIUM (BEAKER) 142 meq/L 136-145 (test code = 381) POTASSIUM (BEAKER) 3.1 meq/L 3.5-5.1 L (test code = 379) CHLORIDE (BEAKER) 102 meq/L 98-107 (test code = 382) CO2 (BEAKER) (test 32 meq/L 22-29 H code = 355) BLOOD UREA NITROGEN < mg/dL 7-21 L (BEAKER) (test code = 354) CREATININE (BEAKER) 0.55 mg/dL 0.57-1.25 L (test code = 358) GLUCOSE RANDOM 69 mg/dL 70-105 L (BEAKER) (test code = 652) CALCIUM (BEAKER) 7.7 mg/dL 8.4-10.2 L (test code = 697) EGFR (BEAKER) (test 174 mL/min/1.73 ESTIM ATED GFR IS code = 1092) sq m NOT ACCURATE CREATININE CLEARANCE IN PREDICTING GLOMERULAR FILTRATION RATE . ESTIMATED GFR I S NOT APPLICABLE FOR DIALYSIS PATIEN TS. Fitter Type Bar And Segment ID - SOTERO MCBC W/PLT COUNT & AUTO [id number] 06:40:00 Test Item Value Reference Range Interpretation Comments WHITE BLOOD CELL COUNT (BEAKER) 5.9 K/ L 3.5-10.5 (test code = 775) RED BLOOD CELL COUNT (BEAKER) 3.54 M/ L 4.63-6.08 L (test code = 761) HEMOGLOBIN (BEAKER) (test code = 10.2 GM/DL 13.7-17.5 L 410) HEMATOCRIT (BEAKER) (test code = 29.6 % 40.1-51.0 L 411) MEAN CORPUSCULAR VOLUME (BEAKER) 83.6 fL 79.0-92.2 (test code = 753) MEAN CORPUSCULAR HEMOGLOBIN 28.8 pg 25.7-32.2 (BEAKER) (test code = 751) MEAN CORPUSCULAR HEMOGLOBIN CONC 34.5 GM/DL 32.3-36.5 (BEAKER) (test code = 752) RED CELL DISTRIBUTION WIDTH 20.0 % 11.6-14.4 H (BEAKER) (test code = 412) PLATELET COUNT (BEAKER) (test 646 K/CU MM 150-450 H code = 756) MEAN PLATELET VOLUME (BEAKER) 10.9 fL 9.4-12.4 (test code = 754) NUCLEATED RED BLOOD CELLS 0 /100 WBC 0-0 (BEAKER) (test code = 413) NEUTROPHILS RELATIVE PERCENT 54 % (BEAKER) (test code = 429) LYMPHOCYTES RELATIVE PERCENT 21 % (BEAKER) (test code = 430) MONOCYTES RELATIVE PERCENT 16 % (BEAKER) (test code = 431) EOSINOPHILS RELATIVE PERCENT 8 % (BEAKER) (test code = 432) BASOPHILS RELATIVE PERCENT 1 % (BEAKER) (test code = 437) NEUTROPHILS ABSOLUTE COUNT 3.19 K/ L 1.78-5.38 (BEAKER) (test code = 670) LYMPHOCYTES ABSOLUTE COUNT 1.21 K/ L 1.32-3.57 L (BEAKER) (test code = 414) MONOCYTES ABSOLUTE COUNT (BEAKER) 0.93 K/ L 0.30-0.82 H (test code = 415) EOSINOPHILS ABSOLUTE COUNT 0.45 K/ L 0.04-0.54 (BEAKER) (test code = 416) BASOPHILS ABSOLUTE COUNT (BEAKER) 0.07 K/ L 0.01-0.08 (test code = 417) IMMATURE GRANULOCYTES-RELATIVE 0 % 0-1 PERCENT (BEAKER) (test code = 2801) RAD, ABDOMEN/KUB, 1 VIEW [id number] 04:54:00Reason for exam:->advancement of new ng tubeShould this be performed at the bedside?->Yes [facility] [place] [facility] 1990 Sex: MFINAL REPORT RAD, ABDOMEN/KUB, 1 VIEW AP CLINICAL HISTORY: advancement of new ng tube TECHNIQUE: RAD, ABDOMEN/KUB, 1 VIEW AP COMPARISON: Three hours prior IMPRESSION:The NG tube has been advanced with the side port distal to the GE junction but the tip remains within the proximal stomach.The bowel gas pattern is nonspecific/nonobstructive. Supine imaging insensitive for detection offree air. Signed: Bhanu Santiago MDRepssm [facility] Verified Date/Time: 03/27/2020 04:54:03 RAD, ABDOMEN/KUB, 1 VIEW [id number] 01:01:00Reason for exam:->new ng tube placementShould this be performed at the bedside?->Yes [facility] [place] : 1990 Sex: MFINAL REPORT RAD, ABDOMEN/KUB, 1 VIEW AP CLINICAL HISTORY: new ng tube placement TECHNIQUE: RAD, ABDOMEN/KUB, 1 VIEW AP COMPARISON: March 24, 2020 IMPRESSION:NG tube tip overlies the stomach with side-port in the distal esophagus for which advancement is advised. Gaseous distention of stomach is similar to prior exam.The bowel gas pattern is nonspecific/nonobstructive. Supine imaging insensitive for detection of free air. Signed: Bhanu Santiago MDReport Verified Date/Time: 03/27/2020 01:01:01 POCT-GLUCOSE [id number] 23:58:00 Test Item Value Reference Range Interpretation Comments POC-GLUCOSE METER 100 mg/dL 70-110 : TESTED A T [facility] 6720 ([employer]) (test code = [facility], 1538) [id number]: Fitter Type Bar And Segment/Techni romain ID = [id number] for BLAIR CASEY POCT-GLUCOSE [id number] 17:33:00 Test Item Value Reference Range Interpretation Comments POC-GLUCOSE METER 147 mg/dL 70-110 H : TESTED A T [facility] 6720 (BEAKER) (test code = [facility], 1538) [address]: Fitter Type Bar And Segment/Techni romain ID = [id number] for BALDWIN BLET, JUAN POCT-GLUCOSE [id number] 11:34:00 Test Item Value Reference Range Interpretation Comments POC-GLUCOSE METER 82 mg/dL 70-110 : TESTED A T [facility] 6720 (BEAKER) (test code = [facility], 1538) [id number]: Fitter Type Bar And Segment/Techni romain ID = [id number] for SUBL ET, JUAN BASIC METABOLIC [id number] 07:35:00 Test Item Value Reference Range Interpretation Comments SODIUM (BEAKER) 140 meq/L 136-145 (test code = 381) POTASSIUM (BEAKER) 3.1 meq/L 3.5-5.1 L (test code = 379) CHLORIDE (BEAKER) 102 meq/L 98-107 (test code = 382) CO2 (BEAKER) (test 31 meq/L 22-29 H code = 355) BLOOD UREA NITROGEN < mg/dL 7-21 L (BEAKER) (test code = 354) CREATININE (BEAKER) 0.58 mg/dL 0.57-1.25 (test code = 358) GLUCOSE RANDOM 79 mg/dL 70-105 (BEAKER) (test code = 652) CALCIUM (BEAKER) 7.8 mg/dL 8.4-10.2 L (test code = 697) EGFR (BEAKER) (test 163 mL/min/1.73 ESTIM ATED GFR IS code = 1092) sq m NOT ACCURATE CREATININE CLEARANCE IN PREDICTING GLOMERULAR FILTRATION RATE . ESTIMATED GFR I S NOT APPLICABLE FOR DIALYSIS PATIEN TS. Fitter Type Bar And Segment ID - [id number] 07:06:00 Test Item Value Reference Range Interpretation Comments MAGNESIUM (BEAKER) (test code = 1.7 mg/dL 1.6-2.6 627) Fitter Type Bar And Segment ID - EDASICBC W/PLT COUNT & AUTO [id number] 05:21:00 Test Item Value Reference Range Interpretation Comments WHITE BLOOD CELL COUNT (BEAKER) 5.7 K/ L 3.5-10.5 (test code = 775) RED BLOOD CELL COUNT (BEAKER) 3.44 M/ L 4.63-6.08 L (test code = 761) HEMOGLOBIN (BEAKER) (test code = 10.2 GM/DL 13.7-17.5 L 410) HEMATOCRIT (BEAKER) (test code = 29.4 % 40.1-51.0 L 411) MEAN CORPUSCULAR VOLUME (BEAKER) 85.5 fL 79.0-92.2 (test code = 753) MEAN CORPUSCULAR HEMOGLOBIN 29.7 pg 25.7-32.2 (BEAKER) (test code = 751) MEAN CORPUSCULAR HEMOGLOBIN CONC 34.7 GM/DL 32.3-36.5 (BEAKER) (test code = 752) RED CELL DISTRIBUTION WIDTH 19.5 % 11.6-14.4 H (BEAKER) (test code = 412) PLATELET COUNT (BEAKER) (test 698 K/CU MM 150-450 H code = 756) MEAN PLATELET VOLUME (BEAKER) 10.4 fL 9.4-12.4 (test code = 754) NUCLEATED RED BLOOD CELLS 0 /100 WBC 0-0 (BEAKER) (test code = 413) NEUTROPHILS RELATIVE PERCENT 56 % (BEAKER) (test code = 429) LYMPHOCYTES RELATIVE PERCENT 19 % (BEAKER) (test code = 430) MONOCYTES RELATIVE PERCENT 17 % (BEAKER) (test code = 431) EOSINOPHILS RELATIVE PERCENT 7 % (BEAKER) (test code = 432) BASOPHILS RELATIVE PERCENT 1 % (BEAKER) (test code = 437) NEUTROPHILS ABSOLUTE COUNT 3.16 K/ L 1.78-5.38 (BEAKER) (test code = 670) LYMPHOCYTES ABSOLUTE COUNT 1.08 K/ L 1.32-3.57 L (BEAKER) (test code = 414) MONOCYTES ABSOLUTE COUNT (BEAKER) 0.93 K/ L 0.30-0.82 H (test code = 415) EOSINOPHILS ABSOLUTE COUNT 0.40 K/ L 0.04-0.54 (BEAKER) (test code = 416) BASOPHILS ABSOLUTE COUNT (BEAKER) 0.06 K/ L 0.01-0.08 (test code = 417) IMMATURE GRANULOCYTES-RELATIVE 0 % 0-1 PERCENT (BEAKER) (test code = 2801) BASIC METABOLIC [id number] 07:40:00 Test Item Value Reference Range Interpretation Comments SODIUM (BEAKER) 141 meq/L 136-145 (test code = 381) POTASSIUM (BEAKER) 3.2 meq/L 3.5-5.1 L (test code = 379) CHLORIDE (BEAKER) 106 meq/L 98-107 (test code = 382) CO2 (BEAKER) (test 26 meq/L 22-29 code = 355) BLOOD UREA NITROGEN < mg/dL 7-21 L (BEAKER) (test code = 354) CREATININE (BEAKER) 0.59 mg/dL 0.57-1.25 (test code = 358) GLUCOSE RANDOM 68 mg/dL 70-105 L (BEAKER) (test code = 652) CALCIUM (BEAKER) 7.6 mg/dL 8.4-10.2 L (test code = 697) EGFR (BEAKER) (test 160 mL/min/1.73 ESTIM ATED GFR IS code = 1092) sq m NOT ACCURATE CREATININE CLEARANCE IN PREDICTING GLOMERULAR FILTRATION RATE . ESTIMATED GFR I S NOT APPLICABLE FOR DIALYSIS PATIEN TS. Fitter Type Bar And Segment ID - [id number] 07:34:00 Test Item Value Reference Range Interpretation Comments MAGNESIUM (BEAKER) (test code = 1.7 mg/dL 1.6-2.6 627) Fitter Type Bar And Segment ID - AAHAMIDCBC W/PLT COUNT & AUTO [id number] 07:24:00 Test Item Value Reference Range Interpretation Comments WHITE BLOOD CELL COUNT (BEAKER) 5.2 K/ L 3.5-10.5 (test code = 775) RED BLOOD CELL COUNT (BEAKER) 3.48 M/ L 4.63-6.08 L (test code = 761) HEMOGLOBIN (BEAKER) (test code = 10.3 GM/DL 13.7-17.5 L 410) HEMATOCRIT (BEAKER) (test code = 30.0 % 40.1-51.0 L 411) MEAN CORPUSCULAR VOLUME (BEAKER) 86.2 fL 79.0-92.2 (test code = 753) MEAN CORPUSCULAR HEMOGLOBIN 29.6 pg 25.7-32.2 (BEAKER) (test code = 751) MEAN CORPUSCULAR HEMOGLOBIN CONC 34.3 GM/DL 32.3-36.5 (BEAKER) (test code = 752) RED CELL DISTRIBUTION WIDTH 19.9 % 11.6-14.4 H (BEAKER) (test code = 412) PLATELET COUNT (BEAKER) (test 715 K/CU MM 150-450 H code = 756) MEAN PLATELET VOLUME (BEAKER) 10.2 fL 9.4-12.4 (test code = 754) NUCLEATED RED BLOOD CELLS 0 /100 WBC 0-0 (BEAKER) (test code = 413) NEUTROPHILS RELATIVE PERCENT 44 % (BEAKER) (test code = 429) LYMPHOCYTES RELATIVE PERCENT 28 % (BEAKER) (test code = 430) MONOCYTES RELATIVE PERCENT 17 % (BEAKER) (test code = 431) EOSINOPHILS RELATIVE PERCENT 9 % (BEAKER) (test code = 432) BASOPHILS RELATIVE PERCENT 1 % (BEAKER) (test code = 437) NEUTROPHILS ABSOLUTE COUNT 2.31 K/ L 1.78-5.38 (BEAKER) (test code = 670) LYMPHOCYTES ABSOLUTE COUNT 1.44 K/ L 1.32-3.57 (BEAKER) (test code = 414) MONOCYTES ABSOLUTE COUNT (BEAKER) 0.91 K/ L 0.30-0.82 H (test code = 415) EOSINOPHILS ABSOLUTE COUNT 0.49 K/ L 0.04-0.54 (BEAKER) (test code = 416) BASOPHILS ABSOLUTE COUNT (BEAKER) 0.07 K/ L 0.01-0.08 (test code = 417) IMMATURE GRANULOCYTES-RELATIVE 0 % 0-1 PERCENT (BEAKER) (test code = 2801) POCT-GLUCOSE [id number] 23:59:00 Test Item Value Reference Range Interpretation Comments POC-GLUCOSE METER 158 mg/dL 70-110 H : TESTED A T [facility] 6720 (BEAKER) (test code = [facility], 1538) [id number]: [employer]/Techni romain ID = [id number] for An patriziaou (contract), Mitchell garcia POCT-GLUCOSE [id number] 23:59:00 Test Item Value Reference Range Interpretation Comments POC-GLUCOSE METER 54 mg/dL 70-110 L : TESTED A T [facility] 6720 (BEAKER) (test code = [facility], 1538) [id number]: F[employer] Segment/Techni romain ID = [id number] for Maria Fernanda blou (contract), Mitchell nna RAD, ABDOMEN/KUB, 1 VIEW [id number] 14:13:00Reason for exam:->Confirm feeding tube placementShould this be performed at the bedside?->Yes [facility] [place] [facility] : 1990 Sex: MFINAL REPORT TECHNIQUE: RAD, ABDOMEN/KUB, 1 VIEW AP INDICATION: Confirm feeding tube placement COMPARISON: None. FINDINGS:NG tube tip terminates over the gastric body. Bowel gas pattern is indeterminate. Lung bases are clear.. IMPRESSION:NG tube tip terminates at the level of the gastric body.. Signed: Jessenia Newman Verified Date/Time: 03/24/2020 14:13:53 Hepatic function [id number] 05:48:00 Test Item Value Reference Range Interpretation Comments Protein, Total (test 4.9 See_Comment L [Autom ated code = 2885-2) message] The system which generated this result transmit leti reference range : 6.0 - 8.3 gm/dL . The reference range was not u sed to interpret th is result as normal/abnormal . Albumin (test code = 1.9 g/dL 3.5-5.0 L 85319-0) Total Bilirubin (test 0.3 mg/dL 0.2-1.2 code = 1975-2) Bilirubin, Direct 0.3 mg/dL 0.1-0.5 (test code = 1968-7) Alkaline Phosphatase 143 U/L 40-150 (test code = 6768-6) AST (test code = 13 U/L 5-34 1920-8) ALT (test code = 6 U/L 6-55 1742-6) ABAD (test code = ABAD) Fitter Type Bar And Segment ID - SOTERO M Lab Interpretation Abnormal (test code = 89260-7) [facility] [id number] 05:48:00 Test Item Value Reference Range Interpretation Comments Protein, Total (test 4.9 See_Comment L [Autom ated code = 2885-2) message] The system which generated this result transmit leti reference range : 6.0 - 8.3 gm/dL . The reference range was not u sed to interpret th is result as normal/abnormal . Albumin (test code = 1.9 g/dL 3.5-5.0 L 26220-7) Total Bilirubin (test 0.3 mg/dL 0.2-1.2 code = 1975-2) Bilirubin, Direct 0.3 mg/dL 0.1-0.5 (test code = 1968-7) Alkaline Phosphatase 143 U/L 40-150 (test code = 6768-6) AST (test code = 13 U/L 5-34 1920-8) ALT (test code = 6 U/L 55 1742-6) ABAD (test code = ABAD) Fitter Type Bar And Segment ID - SOTERO M Lab Interpretation Abnormal (test code = 86760-6) [facility]HEPAT[facility] FUNCTION [id number] 05:48:00 Test Item Value Reference Range Interpretation Comments TOTAL PROTEIN (BEAKER) (test code = 4.9 gm/dL 6.0-8.3 L 770) ALBUMIN (BEAKER) (test code = 1145) 1.9 g/dL 3.5-5.0 L BILIRUBIN TOTAL (BEAKER) (test code 0.3 mg/dL 0.2-1.2 = 377) BILIRUBIN DIRECT (BEAKER) (test 0.3 mg/dL 0.1-0.5 code = 706) ALKALINE PHOSPHATASE (BEAKER) (test 143 U/L 40-150 code = 346) AST (SGOT) (BEAKER) (test code = 13 U/L 5-34 353) ALT (SGPT) (BEAKER) (test code = 6 U/L 55 347) F[employer] Type Bar And Segment ID - SOTERO MBASIC METABOLIC [id number] 05:48:00 Test Item Value Reference Range Interpretation Comments SODIUM (BEAKER) 138 meq/L 136-145 (test code = 381) POTASSIUM (BEAKER) 3.2 meq/L 3.5-5.1 L (test code = 379) CHLORIDE (BEAKER) 103 meq/L 98-107 (test code = 382) CO2 (BEAKER) (test 21 meq/L 22-29 L code = 355) BLOOD UREA NITROGEN < mg/dL 7-21 L (BEAKER) (test code = 354) CREATININE (BEAKER) 0.62 mg/dL 0.57-1.25 (test code = 358) GLUCOSE RANDOM 55 mg/dL 70-105 L (BEAKER) (test code = 652) CALCIUM (BEAKER) 7.4 mg/dL 8.4-10.2 L (test code = 697) EGFR (BEAKER) (test 151 mL/min/1.73 ESTIM ATED GFR IS code = 1092) sq m NOT ACCURATE CREATININE CLEARANCE IN PREDICTING GLOMERULAR FILTRATION RATE . ESTIMATED GFR I S NOT APPLICABLE FOR DIALYSIS PATIEN TS. Fitter Type Bar And Segment ID - SOTERO [id number] 05:43:00 Test Item Value Reference Range Interpretation Comments MAGNESIUM (BEAKER) (test code = 1.7 mg/dL 1.6-2.6 627) F[employer] Bar And Segment ID - SOTERO MCBC W/PLT COUNT & AUTO [id number] 05:11:00 Test Item Value Reference Range Interpretation Comments WHITE BLOOD CELL COUNT (BEAKER) 4.9 K/ L 3.5-10.5 (test code = 775) RED BLOOD CELL COUNT (BEAKER) 3.37 M/ L 4.63-6.08 L (test code = 761) HEMOGLOBIN (BEAKER) (test code = 10.0 GM/DL 13.7-17.5 L 410) HEMATOCRIT (BEAKER) (test code = 29.1 % 40.1-51.0 L 411) MEAN CORPUSCULAR VOLUME (BEAKER) 86.4 fL 79.0-92.2 (test code = 753) MEAN CORPUSCULAR HEMOGLOBIN 29.7 pg 25.7-32.2 (BEAKER) (test code = 751) MEAN CORPUSCULAR HEMOGLOBIN CONC 34.4 GM/DL 32.3-36.5 (BEAKER) (test code = 752) RED CELL DISTRIBUTION WIDTH 19.8 % 11.6-14.4 H (BEAKER) (test code = 412) PLATELET COUNT (BEAKER) (test 744 K/CU MM 150-450 H code = 756) MEAN PLATELET VOLUME (BEAKER) 11.0 fL 9.4-12.4 (test code = 754) NUCLEATED RED BLOOD CELLS 0 /100 WBC 0-0 (BEAKER) (test code = 413) NEUTROPHILS RELATIVE PERCENT 49 % (BEAKER) (test code = 429) LYMPHOCYTES RELATIVE PERCENT 24 % (BEAKER) (test code = 430) MONOCYTES RELATIVE PERCENT 16 % (BEAKER) (test code = 431) EOSINOPHILS RELATIVE PERCENT 9 % (BEAKER) (test code = 432) BASOPHILS RELATIVE PERCENT 1 % (BEAKER) (test code = 437) NEUTROPHILS ABSOLUTE COUNT 2.41 K/ L 1.78-5.38 (BEAKER) (test code = 670) LYMPHOCYTES ABSOLUTE COUNT 1.19 K/ L 1.32-3.57 L (BEAKER) (test code = 414) MONOCYTES ABSOLUTE COUNT (BEAKER) 0.80 K/ L 0.30-0.82 (test code = 415) EOSINOPHILS ABSOLUTE COUNT 0.44 K/ L 0.04-0.54 (BEAKER) (test code = 416) BASOPHILS ABSOLUTE COUNT (BEAKER) 0.07 K/ L 0.01-0.08 (test code = 417) IMMATURE GRANULOCYTES-RELATIVE 0 % 0-1 PERCENT (BEAKER) (test code = 2801) HEPATIC FUNCTION [id number] 15:14:00 Test Item Value Reference Range Interpretation Comments TOTAL PROTEIN (BEAKER) (test code = 4.8 gm/dL 6.0-8.3 L 770) ALBUMIN (BEAKER) (test code = 1145) 2.0 g/dL 3.5-5.0 L BILIRUBIN TOTAL (BEAKER) (test code 0.3 mg/dL 0.2-1.2 = 377) BILIRUBIN DIRECT (BEAKER) (test 0.2 mg/dL 0.1-0.5 code = 706) ALKALINE PHOSPHATASE (BEAKER) (test 147 U/L 40-150 code = 346) AST (SGOT) (BEAKER) (test code = 17 U/L 5-34 353) ALT (SGPT) (BEAKER) (test code = 6 U/L 6-55 347) Fitter Type Bar And Segment ID - BSCT, ABDOMEN, PANCREAS [id number] 12:12:00Unlisted Reason for Exam - Click Yes and Enter Reason Below->No [facility] [place] : 1990 Sex: MFINAL REPORT CT of the abdomen, with and without contrast Clinical History: Pancreatitis, acute, severe, > 7 days Technique: CT of the abdomen is performed before and after intravenous contrast administration. This exam was performed according to our departmental dose optimizationprogram which includes automated exposure control, adjustment of the mA and/or kV according to patien t's size and/or use of iterative reconstructive technique. Comparison Film: MRI dated January 04, [address] dated December 18, 2019 Discussion: There is a small left, and moderate to large right pleural effusion with relaxation atelectasis of the lower lobes. No liver lesion is identified. There isstable mild intrahepatic biliary ductal dilatation. Gallbladder is not identified. The proximal mainportal vein is narrowed, similar to the prior exam. The splenic vein appears chronically occluded, with collateral formation. There is a tiny walled off peripancreatic collection around the body and tail measuring approximately 6 mm in cross section. Pancreatic duct is not dilated. Patient is status post splenectomy. Adrenal glands are normal. Kidneys demonstrate no hydronephrosis, radiopaque stone or mass. There is wall thickening of the gastric antrum, and descending portion of the duodenum associated with mucosal hyperemia. There is also diffuse colonic wall thickening. No evidence of bowel obstruction. A small amount of ascites is new. There is also mild mesenteric edema. No free air. No adenopathy. There is anasarca. No suspicious bony lesion is identified. Impression: A tiny walled off peripancreatic fluid collection around the body and tail likely represents a pseudocyst. 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 Interval development of diffuse colonic wall thickening, suggestive of nonspecific colitis. There is also gastric antral, and descending duodenal wall thickening with mucosal hyperemia, correlate clinically. Small left, moderate to large right pleural effusions. Small amount of ascites. Anasarca. Signed: Ramona Millerort Verified Date/Time: 03/23/2020 12:12:21 Reading Location: [facility] [id number] Ortho Consult Reading Room BASIC METABOLIC [id number] 06:15:00 Test Item Value Reference Range Interpretation Comments SODIUM (BEAKER) 139 meq/L 136-145 (test code = 381) POTASSIUM (BEAKER) 3.2 meq/L 3.5-5.1 L (test code = 379) CHLORIDE (BEAKER) 106 meq/L 98-107 (test code = 382) CO2 (BEAKER) (test 20 meq/L 22-29 L code = 355) BLOOD UREA NITROGEN < mg/dL 7-21 L (BEAKER) (test code = 354) CREATININE (BEAKER) 0.64 mg/dL 0.57-1.25 (test code = 358) GLUCOSE RANDOM 45 mg/dL 70-105 L (BEAKER) (test code = 652) CALCIUM (BEAKER) 7.7 mg/dL 8.4-10.2 L (test code = 697) EGFR (BEAKER) (test 146 mL/min/1.73 ESTIM ATED GFR IS code = 1092) sq m NOT ACCURATE CREATININE CLEARANCE IN PREDICTING GLOMERULAR FILTRATION RATE . ESTIMATED GFR I S NOT APPLICABLE FOR DIALYSIS PATIEN TS. Fitter Type Bar And Segment ID - SOTERO MCBC W/PLT COUNT & AUTO [id number] 05:44:00 Test Item Value Reference Range Interpretation Comments WHITE BLOOD CELL COUNT (BEAKER) 6.8 K/ L 3.5-10.5 (test code = 775) RED BLOOD CELL COUNT (BEAKER) 3.42 M/ L 4.63-6.08 L (test code = 761) HEMOGLOBIN (BEAKER) (test code = 10.4 GM/DL 13.7-17.5 L 410) HEMATOCRIT (BEAKER) (test code = 30.3 % 40.1-51.0 L 411) MEAN CORPUSCULAR VOLUME (BEAKER) 88.6 fL 79.0-92.2 (test code = 753) MEAN CORPUSCULAR HEMOGLOBIN 30.4 pg 25.7-32.2 (BEAKER) (test code = 751) MEAN CORPUSCULAR HEMOGLOBIN CONC 34.3 GM/DL 32.3-36.5 (BEAKER) (test code = 752) RED CELL DISTRIBUTION WIDTH 20.1 % 11.6-14.4 H (BEAKER) (test code = 412) PLATELET COUNT (BEAKER) (test 707 K/CU MM 150-450 H code = 756) MEAN PLATELET VOLUME (BEAKER) 10.4 fL 9.4-12.4 (test code = 754) NUCLEATED RED BLOOD CELLS 0 /100 WBC 0-0 (BEAKER) (test code = 413) NEUTROPHILS RELATIVE PERCENT 52 % (BEAKER) (test code = 429) LYMPHOCYTES RELATIVE PERCENT 22 % (BEAKER) (test code = 430) MONOCYTES RELATIVE PERCENT 18 % (BEAKER) (test code = 431) EOSINOPHILS RELATIVE PERCENT 7 % (BEAKER) (test code = 432) BASOPHILS RELATIVE PERCENT 1 % (BEAKER) (test code = 437) NEUTROPHILS ABSOLUTE COUNT 3.54 K/ L 1.78-5.38 (BEAKER) (test code = 670) LYMPHOCYTES ABSOLUTE COUNT 1.47 K/ L 1.32-3.57 (BEAKER) (test code = 414) MONOCYTES ABSOLUTE COUNT (BEAKER) 1.20 K/ L 0.30-0.82 H (test code = 415) EOSINOPHILS ABSOLUTE COUNT 0.48 K/ L 0.04-0.54 (BEAKER) (test code = 416) BASOPHILS ABSOLUTE COUNT (BEAKER) 0.06 K/ L 0.01-0.08 (test code = 417) IMMATURE GRANULOCYTES-RELATIVE 0 % 0-1 PERCENT (BEAKER) (test code = 2801) BASIC METABOLIC [id number] 05:22:00 Test Item Value Reference Range Interpretation Comments SODIUM (BEAKER) 140 meq/L 136-145 (test code = 381) POTASSIUM (BEAKER) 3.3 meq/L 3.5-5.1 L (test code = 379) CHLORIDE (BEAKER) 105 meq/L 98-107 (test code = 382) CO2 (BEAKER) (test 18 meq/L 22-29 L code = 355) BLOOD UREA NITROGEN < mg/dL 7-21 L (BEAKER) (test code = 354) CREATININE (BEAKER) 0.66 mg/dL 0.57-1.25 (test code = 358) GLUCOSE RANDOM 42 mg/dL 70-105 L (BEAKER) (test code = 652) CALCIUM (BEAKER) 7.7 mg/dL 8.4-10.2 L (test code = 697) EGFR (BEAKER) (test 141 mL/min/1.73 ESTIM ATED GFR IS code = 1092) sq m NOT ACCURATE CREATININE CLEARANCE IN PREDICTING GLOMERULAR FILTRATION RATE . ESTIMATED GFR I S NOT APPLICABLE FOR DIALYSIS PATIEN TS. Fitter Type Bar And Segment ID - SOTERO M(CELLAVISION MANUAL DIFF)2020-03-22 05:16:00 Test Item Value Reference Range Interpretation Comments NEUTROPHILS - REL 82 % (CELLAVISION)(BEAKER) (test code = 2816) LYMPHOCYTES - REL 3 % (CELLAVISION)(BEAKER) (test code = 2817) MONOCYTES - REL 8 % (CELLAVISION)(BEAKER) (test code = 2818) EOSINOPHILS - REL 4 % (CELLAVISION)(BEAKER) (test code = 2819) METAMYELOCYTES - REL 1 % 0-0 H (CELLAVISION)(BEAKER) (test code = 2821) BANDS - REL (CELLAVISION)(BEAKER) 2 % 0-10 (test code = 2826) NEUTROPHILS - ABS 7.22 K/ul 1.78-5.38 H (CELLAVISION)(BEAKER) (test code = 2830) LYMPHOCYTES - ABS 0.26 K/ul 1.32-3.57 L (CELLAVISION)(BEAKER) (test code = 2831) MONOCYTES - ABS 0.70 K/uL 0.30-0.82 (CELLAVISION)(BEAKER) (test code = 2832) EOSINOPHILS - ABS 0.35 K/uL 0.04-0.54 (CELLAVISION)(BEAKER) (test code = 2834) METAMYELOCYTES - ABS 0.09 K/uL 0.00-0.00 H (CELLAVISION)(BEAKER) (test code = 2836) BANDS - ABS (CELLAVISION)(BEAKER) 0.18 K/uL 0.00-0.80 (test code = 2840) TOTAL COUNTED (BEAKER) (test code = 100 1351) WBC MORPHOLOGY (BEAKER) (test code Normal = 487) CLUMPED PLATELETS (BEAKER) (test Present code = 436) GIANT PLATELETS (BEAKER) (test code Present = 313) ANISOCYTOSIS (BEAKER) (test code = 3+ many 961) MACROCYTES (BEAKER) (test code = 3+ many 964) POIKILOCYTES (BEAKER) (test code = 1+ few 966) TARGET CELLS (BEAKER) (test code = 1+ few 480) ELLIPTOCYTES (BEAKER) (test code = 1+ few 962) ARTIFACT (CELLAVISION)(BEAKER) Present (test code = 3432) PLATELET CONCENTRATION Increased (CELLAVISION)(BEAKER) (test code = 3438) Fitter Type Bar And Segment ID - yaniv galvanLuis E comments: Slide comments:CBC W/PLT COUNT & AUTO [id number] 04:51:00 Test Item Value Reference Range Interpretation Comments WHITE BLOOD CELL COUNT (BEAKER) 8.8 K/ L 3.5-10.5 (test code = 775) RED BLOOD CELL COUNT (BEAKER) 3.90 M/ L 4.63-6.08 L (test code = 761) HEMOGLOBIN (BEAKER) (test code = 11.5 GM/DL 13.7-17.5 L 410) HEMATOCRIT (BEAKER) (test code = 33.1 % 40.1-51.0 L 411) MEAN CORPUSCULAR VOLUME (BEAKER) 84.9 fL 79.0-92.2 (test code = 753) MEAN CORPUSCULAR HEMOGLOBIN 29.5 pg 25.7-32.2 (BEAKER) (test code = 751) MEAN CORPUSCULAR HEMOGLOBIN CONC 34.7 GM/DL 32.3-36.5 (BEAKER) (test code = 752) RED CELL DISTRIBUTION WIDTH 20.0 % 11.6-14.4 H (BEAKER) (test code = 412) PLATELET COUNT (BEAKER) (test 731 K/CU MM 150-450 H code = 756) MEAN PLATELET VOLUME (BEAKER) 10.8 fL 9.4-12.4 (test code = 754) NUCLEATED RED BLOOD CELLS 0 /100 WBC 0-0 (BEAKER) (test code = 413) Clostridium difficile GDH [id number] 14:11:00 Test Item Value Reference Range Interpretation Comments C. Difficle Toxin Negative Negative (test code = 3387597527) C. Difficile GDH Positive Negative A C. difficil e Antigen (test code = present but toxin [id number]) not detected. Indicates colonization wi th non-toxigenic strain or level of toxin below detectable levels. No nee d for enteric isolation. Treatment is rarely needed (only when stro ng clinical suspicion for Clostridium difficile infection) ABAD (test code = Testing performed ABAD) by Alere Rapid Cassette Assay. For GDH, published sensitivity of the assay is 98.7% compared to cytotoxicity testing. For Toxin AB, published sensitivity is 87.8% and specificity 99.4% compared to cytotoxicity testing.Verificati on of kit performance was done by the [facility] Microbiology Lab prior to clinical use. Lab Interpretation Abnormal (test code = 40924-7) [facility] [id number] 14:11:00 Test Item Value Reference Range Interpretation Comments C. Difficle Toxin Negative Negative (test code = 6958458333) C. Difficile GDH Positive Negative A C. difficil e Antigen (test code = present but toxin [id number]) not detected. Indicates colonization wi th non-toxigenic strain or level of toxin below detectable levels. No need for enteric isolation. Treatment is rarely needed (only when stro ng clinical suspicion for Clostridium difficile infection) ABAD (test code = Testing performed ABAD) by Alere Rapid Cassette Assay. For GDH, published sensitivity of the assay is 98.7% compared to cytotoxicity testing. For Toxin AB, published sensitivity is 87.8% and specificity 99.4% compared to cytotoxicity testing.Verificati on of kit performance was done by the [facility] Microbiology Lab prior to clinical use. Lab Interpretation Abnormal (test code = 45976-5) [facility] Center[facility]. DIFFICILE GDH [id number] 14:11:00 Test Item Value Reference Range Interpretation Comments CDT TOXIN (test code Negative Negative = ) CDT GDH ANTIGEN Positive Negative A C. difficile present but (test code = toxin not detec leti. ) Indicates colon ization with non-toxige gregory strain or level of tox in below detectable leve ls. No need for enteri c isolation. Rosalia tment is rarely needed ( only when strong clinical suspicion for Clostridium difficile infection) Testing performed by Alere Rapid Cassette Assay. For GDH, published sensitivity of the assay is 98.7% compared to cytotoxicity testing. For Toxin AB, published sensitivity is 87.8% and specificity 99.4% compared to cytotoxicity testing.Verification of kit performance was done by the [facility] prior to clinical use.BASIC METABOLIC [id number] 07:07:00 Test Item Value Reference Range Interpretation Comments SODIUM (BEAKER) 142 meq/L 136-145 (test code = 381) POTASSIUM (BEAKER) 3.4 meq/L 3.5-5.1 L (test code = 379) CHLORIDE (BEAKER) 106 meq/L 98-107 (test code = 382) CO2 (BEAKER) (test 17 meq/L 22-29 L code = 355) BLOOD UREA NITROGEN < mg/dL 7-21 L (BEAKER) (test code = 354) CREATININE (BEAKER) 0.66 mg/dL 0.57-1.25 (test code = 358) GLUCOSE RANDOM 43 mg/dL 70-105 L (BEAKER) (test code = 652) CALCIUM (BEAKER) 8.1 mg/dL 8.4-10.2 L (test code = 697) EGFR (BEAKER) (test 141 mL/min/1.73 ESTIM ATED GFR IS code = 1092) sq m NOT ACCURATE CREATININE CLEARANCE IN PREDICTING GLOMERULAR FILTRATION RATE . ESTIMATED GFR I S NOT APPLICABLE FOR DIALYSIS PATIEN TS. Fitter Type Bar And Segment ID - PIAYA LCBC W/PLT COUNT & AUTO [id number] 05:38:00 Test Item Value Reference Range Interpretation Comments WHITE BLOOD CELL COUNT (BEAKER) 9.3 K/ L 3.5-10.5 (test code = 775) RED BLOOD CELL COUNT (BEAKER) 3.92 M/ L 4.63-6.08 L (test code = 761) HEMOGLOBIN (BEAKER) (test code = 11.2 GM/DL 13.7-17.5 L 410) HEMATOCRIT (BEAKER) (test code = 34.0 % 40.1-51.0 L 411) MEAN CORPUSCULAR VOLUME (BEAKER) 86.7 fL 79.0-92.2 (test code = 753) MEAN CORPUSCULAR HEMOGLOBIN 28.6 pg 25.7-32.2 (BEAKER) (test code = 751) MEAN CORPUSCULAR HEMOGLOBIN CONC 32.9 GM/DL 32.3-36.5 (BEAKER) (test code = 752) RED CELL DISTRIBUTION WIDTH 19.9 % 11.6-14.4 H (BEAKER) (test code = 412) PLATELET COUNT (BEAKER) (test 792 K/CU MM 150-450 H code = 756) [...] (test code = 437) NEUTROPHILS ABSOLUTE COUNT 6.31 K/ L 1.78-5.38 H (BEAKER) (test code = 670) LYMPHOCYTES ABSOLUTE COUNT 1.23 K/ L 1.32-3.57 L (BEAKER) (test code = 414) MONOCYTES ABSOLUTE COUNT (BEAKER) 1.30 K/ L 0.30-0.82 H (test code = 415) EOSINOPHILS ABSOLUTE COUNT 0.38 K/ L 0.04-0.54 (BEAKER) (test code = 416) BASOPHILS ABSOLUTE COUNT (BEAKER) 0.05 K/ L 0.01-0.08 (test code = 417) IMMATURE GRANULOCYTES-RELATIVE 1 % 0-1 PERCENT (BEAKER) (test code = 2801) BASIC METABOLIC [id number] 08:38:00 Test Item Value Reference Range Interpretation Comments SODIUM (BEAKER) 140 meq/L 136-145 (test code = 381) POTASSIUM (BEAKER) 3.6 meq/L 3.5-5.1 (test code = 379) CHLORIDE (BEAKER) 105 meq/L 98-107 (test code = 382) CO2 (BEAKER) (test 19 meq/L 22-29 L code = 355) BLOOD UREA NITROGEN < mg/dL 7-21 L (BEAKER) (test code = 354) CREATININE (BEAKER) 0.60 mg/dL 0.57-1.25 (test code = 358) GLUCOSE RANDOM 51 mg/dL 70-105 L (BEAKER) (test code = 652) CALCIUM (BEAKER) 7.6 mg/dL 8.4-10.2 L (test code = 697) EGFR (BEAKER) (test 157 mL/min/1.73 ESTIM ATED GFR IS code = 1092) sq m NOT ACCURATE CREATININE CLEARANCE IN PREDICTING GLOMERULAR FILTRATION RATE . ESTIMATED GFR I S NOT APPLICABLE FOR DIALYSIS PATIEN TS. Fitter Type Bar And Segment ID - SOTERO MCBC W/PLT COUNT & AUTO [id number] 05:45:00 Test Item Value Reference Range Interpretation Comments WHITE BLOOD CELL COUNT (BEAKER) 8.7 K/ L 3.5-10.5 (test code = 775) RED BLOOD CELL COUNT (BEAKER) 4.00 M/ L 4.63-6.08 L (test code = 761) HEMOGLOBIN (BEAKER) (test code = 11.6 GM/DL 13.7-17.5 L 410) HEMATOCRIT (BEAKER) (test code = 34.8 % 40.1-51.0 L 411) MEAN CORPUSCULAR VOLUME (BEAKER) 87.0 fL 79.0-92.2 (test code = 753) MEAN CORPUSCULAR HEMOGLOBIN 29.0 pg 25.7-32.2 (BEAKER) (test code = 751) MEAN CORPUSCULAR HEMOGLOBIN CONC 33.3 GM/DL 32.3-36.5 (BEAKER) (test code = 752) RED CELL DISTRIBUTION WIDTH 19.9 % 11.6-14.4 H (BEAKER) (test code = 412) PLATELET COUNT (BEAKER) (test 757 K/CU MM 150-450 H code = 756) [...] (test code = 437) NEUTROPHILS ABSOLUTE COUNT 5.93 K/ L 1.78-5.38 H (BEAKER) (test code = 670) LYMPHOCYTES ABSOLUTE COUNT 1.19 K/ L 1.32-3.57 L (BEAKER) (test code = 414) MONOCYTES ABSOLUTE COUNT (BEAKER) 1.24 K/ L 0.30-0.82 H (test code = 415) EOSINOPHILS ABSOLUTE COUNT 0.25 K/ L 0.04-0.54 (BEAKER) (test code = 416) BASOPHILS ABSOLUTE COUNT (BEAKER) 0.05 K/ L 0.01-0.08 (test code = 417) IMMATURE GRANULOCYTES-RELATIVE 0 % 0-1 PERCENT (BEAKER) (test code = 2801) BASIC METABOLIC [id number] 06:06:00 Test Item Value Reference Range Interpretation [...] 0.57-1.25 (test code = 358) GLUCOSE RANDOM 50 mg/dL 70-105 L (BEAKER) (test code = 652) CALCIUM (BEAKER) 7.4 mg/dL 8.4-10.2 L (test code = 697) EGFR (BEAKER) (test 163 mL/min/1.73 ESTIM ATED GFR IS code = 1092) sq m NOT ACCURATE CREATININE CLEARANCE IN PREDICTING GLOMERULAR FILTRATION RATE . ESTIMATED GFR I S NOT APPLICABLE FOR DIALYSIS PATIEN TS. Fitter Type Bar And Segment ID - EDASICBC W/PLT COUNT & AUTO [id number] 05:30:00 Test Item Value Reference Range Interpretation Comments WHITE BLOOD CELL COUNT 8.1 K/ L 3.5-10.5 (BEAKER) (test code = 775) RED BLOOD CELL COUNT 3.33 M/ L 4.63-6.08 L (BEAKER) (test code = 761) HEMOGLOBIN (BEAKER) 9.7 GM/DL 13.7-17.5 L (test code = 410) HEMATOCRIT (BEAKER) 28.5 % 40.1-51.0 L (test code = 411) MEAN CORPUSCULAR 85.6 fL 79.0-92.2 Discordant MCV VOLUME (BEAKER) (test result s compared to code = 753) previous result s; clinical correl ation required. MEAN CORPUSCULAR 29.1 pg 25.7-32.2 HEMOGLOBIN (BEAKER) (test code = 751) MEAN CORPUSCULAR 34.0 GM/DL 32.3-36.5 HEMOGLOBIN CONC (BEAKER) (test code = 752) RED CELL DISTRIBUTION 19.7 % 11.6-14.4 H WIDTH (BEAKER) (test code = 412) PLATELET COUNT 675 K/CU MM 150-450 H (BEAKER) (test code = 756) MEAN PLATELET VOLUME 10.5 fL 9.4-12.4 (BEAKER) (test code = 754) NUCLEATED RED BLOOD 0 /100 WBC 0-0 CELLS (BEAKER) (test code = 413) NEUTROPHILS RELATIVE 63 % PERCENT (BEAKER) (test code = 429) LYMPHOCYTES RELATIVE 17 % PERCENT (BEAKER) (test code = 430) MONOCYTES RELATIVE 15 % PERCENT (BEAKER) (test code = 431) EOSINOPHILS RELATIVE 5 % PERCENT (BEAKER) (test code = 432) BASOPHILS RELATIVE 0 % PERCENT (BEAKER) (test code = 437) NEUTROPHILS ABSOLUTE 5.11 K/ L 1.78-5.38 COUNT (BEAKER) (test code = 670) LYMPHOCYTES ABSOLUTE 1.35 K/ L 1.32-3.57 COUNT (BEAKER) (test code = 414) MONOCYTES ABSOLUTE 1.17 K/ L 0.30-0.82 H COUNT (BEAKER) (test code = 415) EOSINOPHILS ABSOLUTE 0.37 K/ L 0.04-0.54 COUNT (BEAKER) (test code = 416) BASOPHILS ABSOLUTE 0.03 K/ L 0.01-0.08 COUNT (BEAKER) (test code = 417) IMMATURE 1 % 0-1 GRANULOCYTES-RELATIVE PERCENT (BEAKER) (test code = 2801) BASIC METABOLIC [id number] 05:14:00 Test Item Value Reference Range Interpretation [...] 0.57-1.25 (test code = 358) GLUCOSE RANDOM 54 mg/dL 70-105 L (BEAKER) (test code = 652) CALCIUM (BEAKER) 7.8 mg/dL 8.4-10.2 L (test code = 697) EGFR (BEAKER) (test 163 mL/min/1.73 ESTIM ATED GFR IS code = 1092) sq m NOT ACCURATE CREATININE CLEARANCE IN PREDICTING GLOMERULAR FILTRATION RATE . ESTIMATED GFR I S NOT APPLICABLE FOR DIALYSIS PATIEN TS. Fitter Type Bar And Segment ID - SOT[facility] W/PLT COUNT & AUTO [id number] 05:05:00 Test Item Value Reference Range Interpretation Comments WHITE BLOOD CELL COUNT (BEAKER) 8.3 K/ L 3.5-10.5 (test code = 775) RED BLOOD CELL COUNT (BEAKER) 3.66 M/ L 4.63-6.08 L (test code = 761) HEMOGLOBIN (BEAKER) (test code = 10.5 GM/DL 13.7-17.5 L 410) HEMATOCRIT (BEAKER) (test code = 32.8 % 40.1-51.0 L 411) MEAN CORPUSCULAR VOLUME (BEAKER) 89.6 fL 79.0-92.2 (test code = 753) MEAN CORPUSCULAR HEMOGLOBIN 28.7 pg 25.7-32.2 (BEAKER) (test code = 751) MEAN CORPUSCULAR HEMOGLOBIN CONC 32.0 GM/DL 32.3-36.5 L (BEAKER) (test code = 752) RED CELL DISTRIBUTION WIDTH 19.6 % 11.6-14.4 H (BEAKER) (test code = 412) PLATELET COUNT (BEAKER) (test 758 K/CU MM 150-450 H code = 756) [...] (test code = 437) NEUTROPHILS ABSOLUTE COUNT 5.69 K/ L 1.78-5.38 H (BEAKER) (test code = 670) LYMPHOCYTES ABSOLUTE COUNT 1.35 K/ L 1.32-3.57 (BEAKER) (test code = 414) MONOCYTES ABSOLUTE COUNT (BEAKER) 0.91 K/ L 0.30-0.82 H (test code = 415) EOSINOPHILS ABSOLUTE COUNT 0.31 K/ L 0.04-0.54 (BEAKER) (test code = 416) BASOPHILS ABSOLUTE COUNT (BEAKER) 0.04 K/ L 0.01-0.08 (test code = 417) IMMATURE GRANULOCYTES-RELATIVE 0 % 0-1 PERCENT (BEAKER) (test code = 2801) COMPREHENSIVE METABOLIC [id number] 06:24:00 Test Item Value Reference Range Interpretation [...] S NOT APPLICABLE FOR DIALYSIS PATIEN TS. Fitter Type Bar And Segment ID - EDASICBC W/PLT COUNT & AUTO [id number] 06:11:00 Test Item Value Reference Range Interpretation [...] PERCENT (BEAKER) (test code = 2801) BLOOD [id number] 06:00:00 Test Item Value Reference Range Interpretation Comments CULTURE (BEAKER) (test No growth in 5 days code = 1095) BLOOD [id number] 06:00:00 Test Item Value Reference Range Interpretation Comments CULTURE (BEAKER) (test No growth in 5 days code = 1095) COMPREHENSIVE METABOLIC [id number] 04:57:00 Test Item Value Reference Range Interpretation [...] S NOT APPLICABLE FOR DIALYSIS PATIEN TS. Fitter Type Bar And Segment ID - BSCBC W/PLT COUNT & AUTO [id number] 04:57:00 Test Item Value Reference Range Interpretation [...] 0-1 PERCENT (BEAKER) (test code = 2801) [id number] 04:56:00 Test Item Value Reference Range Interpretation Comments MAGNESIUM (BEAKER) (test code = 1.5 mg/dL 1.6-2.6 L 627) Fitter Type Bar And Segment ID - BSIRON, TIBC, % SAT. (WITHOUT FERRITIN)2020-01-09 04:53:00 Test Item Value Reference Range Interpretation Comments IRON (BEAKER) (test code = 547) 120.0 ug/dL 40.0-160.0 TOTAL IRON BINDING CAPACITY 114 ug/dL 250-450 L (BEAKER) (test code = 769) IRON % SATURATION (2) (BEAKER) 105 % 20-55 H (test code = 2590) Fitter Type Bar And Segment ID - ADMINBASIC METABOLIC [id number] 05:56:00 Test Item Value Reference Range Interpretation [...] S NOT APPLICABLE FOR DIALYSIS PATIEN TS. Fitter Type Bar And Segment ID - SOTERO MBASIC METABOLIC [id number] 12:36:00 Test Item Value Reference Range Interpretation [...] S NOT APPLICABLE FOR DIALYSIS PATIEN TS. Fitter Type Bar And Segment ID - AAHAMIDURINALYSIS W/ REFLEX URINE [id number] 12:08:00 Test Item Value Reference Range Interpretation [...] /HPF 520) SOURCE(BEAKER) (test code = 2795) Fitter Type Bar And Segment ID - [auto]Fitter Type Bar And Segment ID - techCBC W/PLT COUNT & AUTO [...] 0-1 PERCENT (BEAKER) (test code = 2801) SARS-COV2/RT-PCR ([facility])2020-01-06 22:07:00 Test Item Value Reference Range Interpretation Comments SARS-COV2/RT-PCR (test Negative Not Detected, Negative, code = 6095515) See external report for linked test SARS-COV-2 PERFORMING LAB [facility] (test code = 2648393) Negative result for this test determines that [...] justifying the authorization of the emergency use ofin vitro diagnostic tests for detection and/or diagnosis of COVID-19 is terminated under Section 564(b)(2) of the Act or the EUA is revoked under Section 564(g) of the Act.Testing was performed using the Najera SARS-CoV-2 assay.Fact Sheet for Healthcare Providers:https://www.Rewarding Return.najera/vivien/RT_SAR R-IuI-1_RCH_Pumx_Ujggn_43-354980.pdfFact Sheet for Healthcare Patients:https://www.Rewarding Return.Contentful/s al/CJ_BNAQ-DjX-2_Muacgkl_Qpej_Bajew_LH_01-647448O0.pdfPerforming Laboratory:[place] [address] [place] [address] (CELLAVISION MANUAL DIFF)2020-01-06 16:23:00 Test Item Value Reference [...] CONCENTRATION Decreased (CELLAVISION)(BEAKER) (test code = 3438) Fitter Type Bar And Segment ID - janaepj Bradley comments: Slide comments:CBC W/PLT COUNT & AUTO [id number] 15:15:00 Test Item Value Reference Range Interpretation [...] 0-1 PERCENT (BEAKER) (test code = 2801) HEPATIC FUNCTION [id number] 11:25:00 Test Item Value Reference Range Interpretation [...] code = < U/L 6-55 L 347) Fitter Type Bar And Segment ID - ROSIANGBASIC METABOLIC [id number] 11:25:00 Test Item Value Reference Range Interpretation [...] S NOT APPLICABLE FOR DIALYSIS PATIEN TS. Fitter Type Bar And Segment ID - ROSIANGMR, ABDOMEN, [id number] 08:42:00Unlisted Reason for Exam - Click Yes and Enter Reason Below->No [facility] CENTERName: [place]IOLA [place] : 1990 Sex: MFINAL REPORT MRCP, MRI of abdomen without contrast Clinical History: Biliary obstruction suspected Technique: Multiplanar and multisequence MR images of the biliary system are obtained, withdedicated MRCP protocol and images. No intravenous contrast is administered. In addition, 3 dimensional reformatted images of the biliary system are obtained to evaluate the biliary anatomy. Comparison: December 18, 2019 Discussion: This examination is not dedicated to evaluating masses or parenchymalabnormalities of the abdominal organs. Additionally, there is susceptibility artifact arising from surgical material in gastric region, limiting evaluation of adjacent soft tissue structures. There aretrace bilateral pleural effusions. No discrete liver lesion is identified on this noncontrast exam. There is a mild degree of biliary ductal dilatation. The extrahepatic bile duct measures up to 8 mm, and the CBD demonstrates smooth distal tapering. No filling defect is seen. Status post cholecystectomy. Patient is status post splenectomy. The pancreas appears atrophied. There is trace peripancreaticedema/fluid. No discrete drainable fluid collection is seen. [...] bilateral pleural effusions, trace ascites. Signed: Ramona Millereport Verified Date/Time: 01/05/2020 08:42:45 Reading Location: [facility] [id number] [facility] Consult Reading Room URINALYSIS W/ REFLEX URINE [id number] 07:42:00 Test Item Value Reference Range Interpretation [...] Rare 1574) SOURCE(BEAKER) (test code = 2795) Fitter Type Bar And Segment ID - [auto]Fitter Type Bar And Segment ID - techRAD, CHEST, 1 VIEW, NON [id number] 07:25:00Reason for exam:->fever, trying to rule out pneumonia. has history necrotizing pancreatiitsShouldthis be performed at the bedside?->Yes [facility] [place] : 1990 Sex: MFINAL REPORT RAD, CHEST, 1 VIEW, NON DEPT INDICATION: fever, trying to rule out pneumonia. has history necrotizing pancreatiits COMPARISON: December 05, 2019 FINDINGS: Portable frontal view of the chest. IMPRESSION: Support Lines: None Lungs and pleura: Diffuse bilateral interstitial thickening is unchanged No pneumothorax.Heart and mediastinum: Stable contours.Additional findings: None. Signed: Vera Fowler MDReport Verified Date/Time: 01/05/2020 07:25:44 Reading Location: [facility] Radiology Reading Room CBC W/PLT COUNT & AUTO [id number] 05:20:00 Test Item Value Reference Range Interpretation [...] (BEAKER) (test code = 2801) COMPREHENSIVE METABOLIC [id number] 05:16:00 Test Item Value Reference Range Interpretation [...] S NOT APPLICABLE FOR DIALYSIS PATIEN TS. Fitter Type Bar And Segment ID - EDASICOMPREHENSIVE METABOLIC [id number] 09:09:00 Test Item Value Reference Range Interpretation [...] S NOT APPLICABLE FOR DIALYSIS PATIEN TS. Fitter Type Bar And Segment ID - SOTERO [id number] 09:07:00 Test Item Value Reference Range Interpretation Comments LIPASE (BEAKER) (test code = 749) 145 U/L 8-78 H Fitter Type Bar And Segment ID - SOTERO MPROTHROMBIN TIME/[id number] 08:57:00 Test Item Value Reference Range Interpretation [...] is 2.5-3.5 for patients wiht mechanical heart valves.CBC W/PLT COUNT & AUTO [id number] 08:38:00 Test Item Value Reference Range Interpretation [...] code = 2801) URINALYSIS W/ REFLEX URINE [id number] 16:49:00 Test Item Value Reference Range Interpretation [...] /HPF 520) SOURCE(BEAKER) (test code = 2795) Fitter Type Bar And Segment ID - [auto]HEMOGLOBIN AND [id number] 13:46:00 Test Item Value Reference Range Interpretation Comments HEMOGLOBIN (BEAKER) (test code = 9.9 GM/DL 13.7-17.5 L 410) HEMATOCRIT (BEAKER) (test code = 30.5 % 40.1-51.0 L 411) Fitter Type Bar And Segment ID - [id number] 07:18:00 Test Item Value Reference Range Interpretation Comments MAGNESIUM (BEAKER) (test code = 1.7 mg/dL 1.6-2.6 627) Fitter Type Bar And Segment ID - SOTERO [id number] 07:18:00 Test Item Value Reference Range Interpretation Comments PHOSPHORUS (BEAKER) (test code = 3.8 mg/dL 2.3-4.7 604) Fitter Type Bar And Segment ID - SOTERO MBASIC METABOLIC [id number] 07:18:00 Test Item Value Reference Range Interpretation [...] S NOT APPLICABLE FOR DIALYSIS PATIEN TS. Fitter Type Bar And Segment ID - SOTERO MCBC (HEMOGRAM ONLY)2019-12-18 06:28:00 Test Item Value Reference [...] 0-0 (BEAKER) (test code = 413) PROTHROMBIN [id number] 06:27:00 Test Item Value Reference Range Interpretation Comments PROTIME (BEAKER) (test code = 16.8 seconds 11.9-14.2 H 759) INR (TAI) (test code = 370) 1.40 <=5.90 Effective 07/03/2018: PT Reference Range ChangeNew: 11.9-14.2 Previous: 11.7- 14.7RECOMMENDED COUMADIN/WARFARIN INR THERAPY RANGESSTANDARD DOSE: 2.0-3.0 Includes: PROPHYLAXIS for venous thrombosis, systemic embolization; TREATMENT for venous thrombosis and/or pulmonary embolus.HIGH RISK: Target INR is 2.5-3.5 for patients wiht mechanical heart valves.CT, [id number] 02:28:00Patient won't take oral contrastUnlisted Reason for Exam - Click Yes and Enter Reason Below->No[facility] [place] : 1990 Sex: [...] CT abdomen and pelvis 12/04/2019. FINDINGS: LOWER CHEST:Small bilateral pleural effusions, decreased in the interval. Trace pericardial fluid.HEPATOBILIARY:Status post cholecystectomy.PANCREAS: Parenchymal atrophy. Soft tissue rind surrounding the pancreaswhich may represent sequela of prior pancreatitis, similar to prior exam.SPLEEN: Status post splenectomy.ADRENALS: Within normal limits.KIDNEYS/URETERS: Within normal limits. URINARY BLADDER: Distendedand thin-walled..REPRODUCTIVE ORGANS: Within normal limits. BOWEL/MESENTERY: Diffuse mural thickening of the stomach with submucosal edema, decreased in the interval. Diffuse mural thickening of the rectum, which may represent a proctitis.PERITONEUM/RETROPERITONEUM: Previously noted small fluid collection adjacent to [...] collection. Diffuse mural thickening of the stomach withsubmucosal edema, decreased in the interval. Soft tissue rind surrounding the pancreas which may represent granulation tissue related to prior pancreatitis, similar to prior exam however correlate clini lon to exclude acute pancreatitis. Interval decrease in size of small fluid collection adjacent tothe pancreatic tail which may represent a postsurgical seroma. Small abdominal ascites. Small bilateral pleural effusions, decreased. Signed: Meghan Atkins [facility] Verified Date/Time: 12/18/2019 02:28:03 GLOBIN AND [id number] 15:00:00 Test Item Value Reference Range Interpretation Comments HEMOGLOBIN (BEAKER) (test code = 8.5 GM/DL 13.7-17.5 L 410) HEMATOCRIT (BEAKER) (test code = 26.0 % 40.1-51.0 L 411) Fitter Type Bar And Segment ID - 6000BASIC METABOLIC [id number] 04:30:00 Test Item Value Reference Range Interpretation [...] S NOT APPLICABLE FOR DIALYSIS PATIEN TS. Fitter Type Bar And Segment ID - EDASIHEPATIC FUNCTION [id number] 04:28:00 Test Item Value Reference Range Interpretation [...] (test code = 7 U/L 6-55 347) Fitter Type Bar And Segment ID - [id number] 04:21:00 Test Item Value Reference Range Interpretation Comments MAGNESIUM (BEAKER) (test code = 1.5 mg/dL 1.6-2.6 L 627) Fitter Type Bar And Segment ID - [id number] 04:21:00 Test Item Value Reference Range Interpretation Comments PHOSPHORUS (BEAKER) (test code = 4.3 mg/dL 2.3-4.7 604) Fitter Type Bar And Segment ID - EDASIPROTHROMBIN [id number] 03:59:00 Test Item Value Reference Range Interpretation [...] is 2.5-3.5 for patients wiht mechanical heart valves.HEMOGLOBIN AND [id number] 03:58:00 Test Item Value Reference Range Interpretation [...] (BEAKER) (test code = 413) HEMOGLOBIN AND [id number] 15:29:00 Test Item Value Reference Range Interpretation Comments HEMOGLOBIN (BEAKER) (test code = 9.0 GM/DL 13.7-17.5 L 410) HEMATOCRIT (BEAKER) (test code = 27.9 % 40.1-51.0 L 411) Fitter Type Bar And Segment ID - 6000POCT-GLUCOSE [id number] 13:02:00 Test Item Value Reference Range Interpretation Comments POC-GLUCOSE METER 86 mg/dL 70-110 : TESTED A T [facility] 6720 (BEAKER) (test code = [place], 1538) [address]: Fitter Type Bar And Segment/Techni romain ID = [id number] for RAYO ELLER HEPATIC FUNCTION [id number] 11:23:00 Test Item Value Reference Range Interpretation [...] (test code = 9 U/L 6-55 347) Fitter Type Bar And Segment ID - THUAN FOperator ID - THUAN [id number] 10:49:00 Test Item Value Reference Range Interpretation Comments LIPASE (BEAKER) (test code = 749) 16 U/L 8-78 Fitter Type Bar And Segment ID - THUAN FLACTIC ACID, [id number] 10:31:00 Test Item Value Reference Range Interpretation Comments LACTATE BLOOD VENOUS (2) (BEAKER) 0.55 mmol/L 0.50-2.20 (test code = 2872) Fitter Type Bar And Segment ID - THUAN FHEMOGLOBIN AND [id number] 09:49:00 Test Item Value Reference Range Interpretation Comments HEMOGLOBIN (BEAKER) (test code = 9.5 GM/DL 13.7-17.5 L 410) HEMATOCRIT (BEAKER) (test code = 30.0 % 40.1-51.0 L 411) Fitter Type Bar And Segment ID - 6000BASIC METABOLIC [id number] 05:52:00 Test Item Value Reference Range Interpretation [...] S NOT APPLICABLE FOR DIALYSIS PATIEN TS. Fitter Type Bar And Segment ID - [id number] 05:50:00 Test Item Value Reference Range Interpretation Comments MAGNESIUM (BEAKER) (test code = 1.7 mg/dL 1.6-2.6 627) Fitter Type Bar And Segment ID - [id number] 05:50:00 Test Item Value Reference Range Interpretation Comments PHOSPHORUS (BEAKER) (test code = 4.0 mg/dL 2.3-4.7 604) Fitter Type Bar And Segment ID - EDASIPROTHROMBIN TIME/[id number] 05:18:00 Test Item Value Reference Range Interpretation [...] is 2.5-3.5 for patients wiht mechanical heart valves.CBC (HEMOGRAM [...] (BEAKER) (test code = 413) HEMOGLOBIN AND [id number] 21:27:00 Test Item Value Reference Range Interpretation Comments HEMOGLOBIN (BEAKER) (test code = 10.5 GM/DL 13.7-17.5 L 410) HEMATOCRIT (BEAKER) (test code = 32.4 % 40.1-51.0 L 411) Fitter Type Bar And Segment ID - 6000HEMOGLOBIN AND [id number] 17:10:00 Test Item Value Reference Range Interpretation Comments HEMOGLOBIN (BEAKER) (test code = 8.8 GM/DL 13.7-17.5 L 410) HEMATOCRIT (BEAKER) (test code = 26.8 % 40.1-51.0 L 411) Fitter Type Bar And Segment ID - 6000OXYGEN SATURATION, [id number] 13:56:00 Test Item Value Reference Range Interpretation Comments O2 SATURATION (MEASURED) (BEAKER) 87.3 % (test code = 1455) OXYGEN SATURATION, [id number] 13:34:00 Test Item Value Reference Range Interpretation Comments O2 SATURATION (MEASURED) (BEAKER) 93.0 % (test code = 1455) HEMOGLOBIN AND [id number] 11:00:00 Test Item Value Reference Range Interpretation Comments HEMOGLOBIN (BEAKER) (test code = 9.9 GM/DL 13.7-17.5 L 410) HEMATOCRIT (BEAKER) (test code = 31.5 % 40.1-51.0 L 411) Fitter Type Bar And Segment ID - 6000SASHA, EMBOLIZATION, EXTENSIVE - [id number] 10:36:00 Reason for exam:->GDA embolization for duodenol bulb bleedAnesthesia:->General [facility] [place] : 1990 Sex: MFINAL REPORT Procedure: Transarterial embolization of gastroduodenal artery. 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 Empiric GDA embolization was requested. Rn Radiation: Rayshawn Motley M.D. Facility Assistant: Jef Rosen Modality: Sonography and fluoroscopy. DOSE REDUCTION: The examination was performed according to departmental dose-optimization program. Fluoro time: 11.7 minutes Radiation dose: 675 mGy air Kerma. Number of images: 48 Sedation: Provided by the ICU team. Anesthesia: Lidocaine local infiltration. Medicines: Not applicable Contrast medium: Isovue 300, 150 cc. Estimated blood loss: < 5 cc. Technique: A discussion of the risks, benefits, andalternatives was carried out with the patient or [...] standard exchanges. Over the wire a 5 Belgian short vascular sheath was placed. The sheath was connected to a heparinized saline drip. Over the wire, a 5 Belgian reverse curve catheter was placed. This was [...] embolization of the gastroduodenal artery with cyanoacrylate gluein a 1-3 dilution A post embolization run was performed from the guide catheter in the celiac artery. It showed occlusion of the gastroduodenal artery flushed with its origin. The access site was closed using Angio-Seal. The patient was then transferred to the post procedure area for recovery. The patient was discharged from the department in stable condition. Complications: None immediate. Findings:U nremarkable celiac artery. Unremarkable proximal branches of the celiac artery. A stump of the gastroduodenal artery is seen. 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 Selective angiography of the common hepaticartery shows a GDA stump with no active bleeding at this time, unremarkable hepatic artery and rightgastric artery. The later runs show blowout of the GDA with extravasation of the contrast medium in the same location as the endoscopic clip. This was embolized with glue successfully. There is complete occlusion of the GDA to the ostium of the GDA from the common hepatic artery. There is no nontargetembolization. Impression: Successful catheterization and angiography of the celiac artery and the gastroduodenal artery with successful embolization of the GDA using glue as described above. Thank you for the opportunity to assist in the care of your patient. Signed: Rayshawn Motleyeport Verified Date/Time: 12/15/2019 10:36:44 Reading Location: [place] [id number] Angio Body Reading Room [id number] 04:46:00 Test Item Value Reference Range Interpretation Comments MAGNESIUM (BEAKER) (test code = 1.7 mg/dL 1.6-2.6 627) Fitter Type Bar And Segment ID - SOTERO [id number] 04:46:00 Test Item Value Reference Range Interpretation Comments PHOSPHORUS (BEAKER) (test code = 2.9 mg/dL 2.3-4.7 604) Fitter Type Bar And Segment ID - SOTERO MBASIC METABOLIC [id number] 04:46:00 Test Item Value Reference Range Interpretation [...] S NOT APPLICABLE FOR DIALYSIS PATIEN TS. Fitter Type Bar And Segment ID - SOTERO MHEPATIC FUNCTION [id number] 04:46:00 Test Item Value Reference Range Interpretation [...] (test code = 9 U/L 6-55 347) Fitter Type Bar And Segment ID - SOTERO MPROTHROMBIN TIME/[id number] 04:36:00 Test Item Value Reference Range Interpretation [...] is 2.5-3.5 for patients wiht mechanical heart valves.CBC (HEMOGRAM [...] 0-0 CELLS (BEAKER) (test code = 413) HEMOGLOBIN AND [id number] 22:11:00 Test Item Value Reference Range Interpretation Comments HEMOGLOBIN (BEAKER) (test code = 8.2 GM/DL 13.7-17.5 L 410) HEMATOCRIT (BEAKER) (test code = 25.0 % 40.1-51.0 L 411) Fitter Type Bar And Segment ID - 6000LACTIC ACID, [id number] 13:05:00 Test Item Value Reference Range Interpretation Comments LACTATE BLOOD VENOUS 1.41 mmol/L 0.50-2.20 Specime n slightly (2) (BEAKER) (test hemolyzed code = 2872) Fitter Type Bar And Segment ID - KIRA CHEMOGLOBIN AND [id number] 11:51:00 Test Item Value Reference Range Interpretation Comments HEMOGLOBIN (BEAKER) (test code = 11.7 GM/DL 13.7-17.5 L 410) HEMATOCRIT (BEAKER) (test code = 35.4 % 40.1-51.0 L 411) Fitter Type Bar And Segment ID - 6000SARS-COV2/RT-PCR ([facility])2019-12-14 07:38:00 Test Item Value Reference Range Interpretation Comments SARS-COV2/RT-PCR (test Negative Not Detected, Negative, code = 3088670) See external report for linked test SARS-COV-2 PERFORMING LAB [facility] ERYN (test code = 6974476) Negative result for this test determines that [...] justifying the authorization of the emergency use ofin vitro diagnostic tests for detection and/or diagnosis of COVID-19 is terminated under Section 564(b)(2) of the Act or the EUA is revoked under Section 564(g) of the Act.Testing was performed using the Najera SARS-CoV-2 assay.Fact Sheet for Healthcare Providers:https://www.Rewarding Return.najera/vivien/RT_SAR V-TyF-6_LDB_Qssq_Orufg_06-839832.pdfFact Sheet for Healthcare Patients:https://www.Rewarding Return.najera/s al/KB_SQQP-UqB-7_Oyobpvg_Mjeo_Zfkqj_RX_22-871160C3.pdfPerforming Laboratory:[place] [address] [place] [address] BASIC METABOLIC [id number] 05:39:00 Test Item Value Reference Range Interpretation [...] S NOT APPLICABLE FOR DIALYSIS PATIEN TS. Fitter Type Bar And Segment ID - SOTERO [id number] 05:29:00 Test Item Value Reference Range Interpretation [...] 0-0 CELLS (BEAKER) (test code = 413) [id number] 05:11:00 Test Item Value Reference Range Interpretation Comments MAGNESIUM (BEAKER) (test code = 1.5 mg/dL 1.6-2.6 L 627) Fitter Type Bar And Segment ID - SOTERO [id number] 05:11:00 Test Item Value Reference Range Interpretation Comments PHOSPHORUS (BEAKER) (test code = 2.9 mg/dL 2.3-4.7 604) Fitter Type Bar And Segment ID - SOTERO MPROTHROMBIN TIME/[id number] 05:04:00 Test Item Value Reference Range Interpretation [...] is 2.5-3.5 for patients wiht mechanical heart valves.HEMOGLOBIN AND [id number] 01:10:00 Test Item Value Reference Range Interpretation Comments HEMOGLOBIN (BEAKER) (test code = 9.5 GM/DL 13.7-17.5 L 410) HEMATOCRIT (BEAKER) (test code = 28.2 % 40.1-51.0 L 411) Fitter Type Bar And Segment ID - 6000BLOOD GAS, [id number] 01:08:00 Test Item Value Reference Range Interpretation [...] FIO2 (BEAKER) (test code = 1819) 50.0 [id number] 22:08:00 Test Item Value Reference Range Interpretation Comments FIBRINOGEN LEVEL (BEAKER) (test 484 mg/dl 225-434 H code = 658) [id number] 17:54:00 Test Item Value Reference Range Interpretation [...] is 2.5-3.5 for patients wiht mechanical heart valves.PROTHROMBIN [id number] 17:53:00 Test Item Value Reference Range Interpretation [...] is 2.5-3.5 for patients wiht mechanical heart valves.COMPREHENSIVE METABOLIC PANEL 2019-12-13 16:58:00 Test Item Value Reference Range Interpretation [...] S NOT APPLICABLE FOR DIALYSIS PATIEN TS. Fitter Type Bar And Segment ID - KIRA [id number] 16:57:00 Test Item Value Reference Range Interpretation Comments MAGNESIUM (BEAKER) 1.5 mg/dL 1.6-2.6 L Specimen slightly (test code = 627) hemolyzed Fitter Type Bar And Segment ID - KIRA CCBC (HEMOGRAM ONLY)2019-12-13 16:41:00 [...] WBC 0-0 (BEAKER) (test code = 413) BODY FLUID CULTURE + GRAM [id number] 13:02:00 Test Item Value Reference Range Interpretation Comments CULTURE (BEAKER) (test No growth code = 1095) GRAM STAIN RESULT <1+ White blood cells (BEAKER) (test code = seen 1123) GRAM STAIN RESULT No organisms seen (BEAKER) (test code = 064341) POCT-GLUCOSE [id number] 12:55:00 Test Item Value Reference Range Interpretation Comments POC-GLUCOSE METER 93 mg/dL 70-110 : TESTED A T [facility] 6720 (BEAKER) (test code = CHANTE Mohamud [facility], 1538) [address]: Fitter Type Bar And Segment/Techni romain ID = [id number] for SADE CABANFER PROTEIN, TOTAL, PLEURAL [id number] 12:08:00 Test Item Value Reference Range Interpretation Comments PROTEIN, TOTAL, 1.1 Reference ra nge is not PLEURAL FLUID defined and in terpretation (BEAKER) (test code must be performed in the = 0535245) consideration o f the pathophysiology of the analyte and the clinical context.TEST PE RFORMED AT [facility] LAB Reference range is not defined and interpretation must be performed in the consideration of the pathophysiology of the analyte and the clinical context.[facility] 2019-12-07 06:49:00 Test Item [...] S NOT APPLICABLE FOR DIALYSIS PATIEN TS. Fitter Type Bar And Segment ID - [id number] 06:39:00 Test Item Value Reference Range Interpretation Comments MAGNESIUM (BEAKER) (test code = 2.1 mg/dL 1.6-2.6 627) Fitter Type Bar And Segment ID - [id number] 06:39:00 Test Item Value Reference Range Interpretation Comments PHOSPHORUS (BEAKER) (test code = 2.8 mg/dL 2.3-4.7 604) Fitter Type Bar And Segment ID - EDASICBC W/PLT COUNT & AUTO [id number] 06:33:00 Test Item Value Reference Range Interpretation [...] PERCENT (BEAKER) (test code = 2801) PROTHROMBIN [id number] 06:22:00 Test Item Value Reference Range Interpretation [...] is 2.5-3.5 for patients wiht mechanical heart valves.POCT-GLUCOSE [id number] 06:16:00 Test Item Value Reference Range Interpretation Comments POC-GLUCOSE METER 92 mg/dL 70-110 : TESTED A T [facility] 6720 (BEAKER) (test code = [facility], [facility]8) [address]671: Fitter Type Bar And Segment/Techni romain ID = [id number] for EDILMA , NORMAN POCT-GLUCOSE [id number] 00:04:00 Test Item Value Reference Range Interpretation Comments POC-GLUCOSE METER 81 mg/dL 70-110 : TESTED A T [facility] 6720 (BEAKER) (test code = [facility], [facility]) [address]: Fitter Type Bar And Segment/Techni romain ID = [id number] for EDILMA , NORMAN HEMOGLOBIN AND [id number] 20:49:00 Test Item Value Reference Range Interpretation Comments HEMOGLOBIN (BEAKER) (test code = 9.8 GM/DL 13.7-17.5 L 410) HEMATOCRIT (BEAKER) (test code = 30.0 % 40.1-51.0 L 411) Fitter Type Bar And Segment ID - 6000POCT-GLUCOSE [id number] 17:25:00 Test Item Value Reference Range Interpretation Comments POC-GLUCOSE METER 103 mg/dL 70-110 : TESTED A T [facility] 6720 (BEAKER) (test code = [facility], 153) 45569: Fitter Type Bar And Segment/Techni romain ID = [id number] for DELON GUZMANESS POCT-GLUCOSE [id number] 14:01:00 Test Item Value Reference Range Interpretation Comments POC-GLUCOSE METER 99 mg/dL 70-110 : TESTED A T [facility] 6720 (BEAKER) (test code = [facility], 153) 35371: Fitter Type Bar And Segment/Techni romain ID = [id number] for PRINCESS LUPILLO POCT-GLUCOSE [id number] 13:51:00 Test Item Value Reference Range Interpretation Comments POC-GLUCOSE METER 84 mg/dL 70-110 : TESTED A T [facility] 6720 (TAI) (test code = [facility] [place], 1538) [address]: Fitter Type Bar And Segment/Techni romain ID = [id number] for JON NAVARRO U/S, [id number] 13:05:00Laterality?->RightReason for exam:- >pleural effusionSpecimen to be collected:->ldh, protein, glucose, amylase, lipase, gram stain, culture, cs and cultureShould this be performed at the bedside?->NoLabs to be Ordered:->Glucose+LDH+ProteinLabs to be Ordered:->Cell CountLabs to be Ordered:->Body Fluid Culture (w/Gram Stain, C\\T\\S)[facility] [place] : 1990 Sex: MFINAL REPORT Exam: Ultrasound guided thoracentesis Clinical History: Right-sided Pleural Effusion Rn Radiation: Michelle Eric PA-C Supervising Physician: Austin Tee MD Consent: Benefits and risks were explained to the patient who gave consent to the procedure. Complication: None Immediate Procedure: The patient was placed in left lateral decubitusposition. The right posterior chestwas prepped and draped in usual sterile fashion. [...] patient left the department in stable condition. Impression:Ultrasound guided right-sided thoracentesis. Signed: Austin Tee MDReport Verified Date/Time: 12/06/2019 13:05:38 Reading Location: [facility] P006J Ultrasound Reading Room CBC W/PLT COUNT & AUTO [id number] 06:48:00 Test Item Value Reference Range Interpretation [...] (BEAKER) (test code = 2801) BASIC METABOLIC [id number] 06:48:00 Test Item Value Reference Range Interpretation [...] S NOT APPLICABLE FOR DIALYSIS PATIEN TS. Fitter Type Bar And Segment ID - [id number] 06:39:00 Test Item Value Reference Range Interpretation Comments MAGNESIUM (BEAKER) (test code = 2.2 mg/dL 1.6-2.6 627) Fitter Type Bar And Segment ID - [id number] 06:39:00 Test Item Value Reference Range Interpretation Comments PHOSPHORUS (BEAKER) (test code = 3.1 mg/dL 2.3-4.7 604) Fitter Type Bar And Segment ID - EDASIPROTHROMBIN TIME/[id number] 06:17:00 Test Item Value Reference Range Interpretation [...] is 2.5-3.5 for patients wiht mechanical heart valves.POCT-GLUCOSE [id number] 23:39:00 Test Item Value Reference Range Interpretation Comments POC-GLUCOSE METER 88 mg/dL 70-110 : TESTED A T [facility] 6720 (BEAKER) (test code = [place], 1538) [address]: Fitter Type Bar And Segment/Techni romain ID = [id number] for JON NAVARRO BODY FLUID CELL COUNT WITH [id number] 21:03:00 Test Item Value Reference Range Interpretation [...] EDTA Tube (BEAKER) (test code = 2873) [id number] 20:01:00 Test Item Value Reference Range Interpretation Comments LIPASE (BEAKER) (test code = 749) 10 U/L 8-78 Fitter Type Bar And Segment ID - DBHEMOGLOBIN AND [id number] 19:42:00 Test Item Value Reference Range Interpretation Comments HEMOGLOBIN (BEAKER) (test code = 10.2 GM/DL 13.7-17.5 L 410) HEMATOCRIT (BEAKER) (test code = 31.7 % 40.1-51.0 L 411) Fitter Type Bar And Segment ID - 6000RAD, CHEST, 1 VIEW, NON [id number] 19:34:00Reason for exam:->post right sided thoracentesisShould this be performed at the bedside?->YesL[facility]ENTER[facility]: [facility]A [place] : 1990 Sex: MFINAL REPORT RAD, CHEST, 1 VIEW, NON DEPT TECHNIQUE: Frontal view of the chest. INDICATION: post right sided thoracentesis. COMPARISON: 10/19/2019 FINDINGS/IMPRESSION: Lines/Tubes: None Lungs/pleura: Clear and well expanded. Possible small left pleural effusion, no evident pleural effusion on the right. No pneumothorax. Questionable small calcified pulmonary nodule projecting over the rightupper lobe. Heart and Mediastinum: Unchanged. Soft Tissues and Bones: Metallic clip projects over the left upper abdomen.. Signed: Sonal Le Verified Date/Time: 12/05/2019 19:34:19 Reading Location: [address] Transitional Reading Room POCT-GLUCOSE [id number] 11:54:00 Test Item Value Reference Range Interpretation Comments POC-GLUCOSE METER 93 mg/dL 70-110 : Notified RN/MD: TESTED (TAI) (test code = [facility] 67[facility], [facility] 30: Fitter Type Bar And Segment/Techni romain ID = [id number] JULIUS Ronquillo CBC (HEMOGRAM ONLY)2019-12-05 10:52:00 Test Item Value [...] (BEAKER) (test code = 413) BASIC METABOLIC [id number] 07:38:00 Test Item Value Reference Range Interpretation [...] S NOT APPLICABLE FOR DIALYSIS PATIEN TS. Fitter Type Bar And Segment ID - [id number] 07:31:00 Test Item Value Reference Range Interpretation Comments MAGNESIUM (BEAKER) (test code = 1.7 mg/dL 1.6-2.6 627) Fitter Type Bar And Segment ID - [id number] 07:31:00 Test Item Value Reference Range Interpretation Comments PHOSPHORUS (BEAKER) (test code = 4.0 mg/dL 2.3-4.7 604) Fitter Type Bar And Segment ID - EDASIPROTHROMBIN TIME/[id number] 06:20:00 Test Item Value Reference Range Interpretation [...] is 2.5-3.5 for patients wiht mechanical heart valves.CBC W/PLT COUNT & AUTO [id number] 06:01:00 Test Item Value Reference Range Interpretation [...] PERCENT (BEAKER) (test code = 2801) POCT-GLUCOSE [id number] 05:38:00 Test Item Value Reference Range Interpretation Comments POC-GLUCOSE METER 91 mg/dL 70-110 : TESTED A T [facility] 6720 (BEAKER) (test code = [facility] [place], 1538) 18383: Fitter Type Bar And Segment/Techni romain ID = [id number] for BIYO , ALEXANDRIA POCT-GLUCOSE [id number] 18:00:00 Test Item Value Reference Range Interpretation Comments POC-GLUCOSE METER 114 mg/dL 70-110 H : TESTED A T [facility] 6720 (BEAKER) (test code = [facility] [place], 1538) [address]: Fitter Type Bar And Segment/Techni romain ID = [id number] for Viraj Plunkett CT, [id number] 14:36:00Unlisted Reason for Exam - Click Yes and Enter Reason Below->NoDuodenal ulcer s/p epi/cautery, now with abdominal pain, rule out perforationCHI [facility] [place] : 1990 Sex: MFINAL REPORT CT of the abdomen and pelvis, with contrast Clinical History: Abdominal pain, acute, nonlocalized Technique: CT of the abdomen and pelvis is performed with intravenous contrast administration. This exam was performed according to our departmental dose optimization program whichincludes automated exposure control, adjustment of the mA [...] main portal vein is narrowed, similar to theprior exam. There is atrophy of the pancreatic [...] also appears walled. No adjacent fluid collection tosuggest perforation. No bowel obstruction. The right and transverse colon also appears mildly thick walled versus underdistended. Normal appendix. In the pelvis, bladder, prostate and seminal vesicles are unremarkable. There is trace [...] Miller Verified Date/Time: 12/04/2019 14:36:28 Reading Location: [address] Consult Reading Room HEMOGLOBIN AND [id number] 12:42:00 Test Item Value Reference Range Interpretation Comments HEMOGLOBIN (BEAKER) (test code = 9.5 GM/DL 13.7-17.5 L 410) HEMATOCRIT (BEAKER) (test code = 28.7 % 40.1-51.0 L 411) Fitter Type Bar And Segment ID - 6000POCT-GLUCOSE [id number] 12:07:00 Test Item Value Reference Range Interpretation Comments POC-GLUCOSE METER 73 mg/dL 70-110 : TESTED A T [facility] 6720 (BEAKER) (test code = [facility], 1538) 08137: Fitter Type Bar And Segment/Techni romain ID = [id number] for Viraj De La Vega BASIC METABOLIC [id number] 06:47:00 Test Item Value Reference Range Interpretation Comments SODIUM (BEAKER) 143 meq/L 136-145 (test code = 381) POTASSIUM (BEAKER) 3.4 meq/L 3.5-5.1 L (test code = 379) CHLORIDE (BEAKER) 108 meq/L 98-107 H (test code = 382) CO2 (BEAKER) (test 27 meq/L -29 code = 355) BLOOD UREA NITROGEN 5 [...] S NOT APPLICABLE FOR DIALYSIS PATIEN TS. Fitter Type Bar And Segment ID - SOTERO MPOCT-GLUCOSE [id number] 05:56:00 Test Item Value Reference Range Interpretation Comments POC-GLUCOSE METER 114 mg/dL 70-110 H : TESTED A T [facility] 6720 (BEAKER) (test code = [facility], 1538) 23946: Fitter Type Bar And Segment/Techni romain ID = [id number] for BERTA CASEY PROTHROMBIN [id number] 05:04:00 Test Item Value Reference Range Interpretation [...] is 2.5-3.5 for patients wiht mechanical heart valves.CBC W/PLT COUNT & AUTO [id number] 04:50:00 Test Item Value Reference Range Interpretation [...] (BEAKER) (test code = 2801) HEMOGLOBIN AND [id number] 00:35:00 Test Item Value Reference Range Interpretation Comments HEMOGLOBIN (BEAKER) (test code = 8.9 GM/DL 13.7-17.5 L 410) HEMATOCRIT (BEAKER) (test code = 26.5 % 40.1-51.0 L 411) Fitter Type Bar And Segment ID - 6000POCT-GLUCOSE [id number] 23:35:00 Test Item Value Reference Range Interpretation Comments POC-GLUCOSE METER 106 mg/dL 70-110 : TESTED A T [facility] 6720 (BEAKER) (test code = [facility], 1538) 717[address]: Fitter Type Bar And Segment/Techni romain ID = [id number] for [place] LLIAMS, CONSETTA HEMOGLOBIN AND [id number] 18:31:00 Test Item Value Reference Range Interpretation Comments HEMOGLOBIN (BEAKER) (test code = 9.5 GM/DL 13.7-17.5 L 410) HEMATOCRIT (BEAKER) (test code = 28.7 % 40.1-51.0 L 411) Fitter Type Bar And Segment ID - 6000POCT-GLUCOSE [id number] 17:46:00 Test Item Value Reference Range Interpretation Comments POC-GLUCOSE METER 117 mg/dL 70-110 H : TESTED A T [facility] 6720 (BEAKER) (test code = [facility], 1538) 75391: Fitter Type Bar And Segment/Techni romain ID = [id number] for So moe, Giavanna HEMOGLOBIN AND [id number] 12:04:00 Test Item Value Reference Range Interpretation Comments HEMOGLOBIN (BEAKER) (test code = 8.7 GM/DL 13.7-17.5 L 410) HEMATOCRIT (BEAKER) (test code = 26.0 % 40.1-51.0 L 411) Fitter Type Bar And Segment ID - 6000POCT-GLUCOSE [id number] 11:58:00 Test Item Value Reference Range Interpretation Comments POC-GLUCOSE METER 132 mg/dL 70-110 H : TESTED A T [facility] 6720 (BEAKER) (test code = [facility], 1538) [address]12: Fitter Type Bar And Segment/Techni romain ID = [id number] for So moe, Giavanna POCT-GLUCOSE [id number] 06:22:00 Test Item Value Reference Range Interpretation Comments POC-GLUCOSE METER 140 mg/dL 70-110 H : TESTED A T [facility] 6720 (BEAKER) (test code = [facility], 1538) 41274: Fitter Type Bar And Segment/Techni romain ID = [id number] for [place] LLIAMS, CONSETTA BASIC METABOLIC [id number] 05:07:00 Test Item Value Reference Range Interpretation [...] S NOT APPLICABLE FOR DIALYSIS PATIEN TS. Fitter Type Bar And Segment ID - PIAYA LCBC W/PLT COUNT & AUTO [id number] 04:53:00 Test Item Value Reference Range Interpretation [...] PERCENT (BEAKER) (test code = 2801) PROTHROMBIN TIME/[id number] 04:44:00 Test Item Value Reference Range Interpretation [...] is 2.5-3.5 for patients wiht mechanical heart valves.U/S, ABDOMINAL, WITH [id number] 01:27:00Reason for exam:->evaluate splenic vein, SMV, portal vein occlusion [facility] [place] : 1990 Sex: [...] not visualized. Proper hepatic artery, right hepatic artery,and left hepatic artery are patent with resistive [...] Rosalia Golden MDReport Verified Date/Time: 12/03/2019 01:27:24 HEMOGLOBIN AND HEMATOCRIT 2019-12-03 01:05:00 Test Item Value Reference Range Interpretation Comments HEMOGLOBIN (BEAKER) (test code = 8.9 GM/DL 13.7-17.5 L 410) HEMATOCRIT (BEAKER) (test code = 26.3 % 40.1-51.0 L 411) Fitter Type Bar And Segment ID - 6000POCT-GLUCOSE [id number] 23:38:00 Test Item Value Reference Range Interpretation Comments POC-GLUCOSE METER 109 mg/dL 70-110 : TESTED A T [facility] 6720 (BEVIANEY) (test code = [place], 1538) [address]: Fitter Type Bar And Segment/Techni romain ID = [id number] for [place] DIDI, CONSKAY SARS-COV2/RT-PCR ([facility])2019-12-02 20:25:00 Test Item Value Reference Range Interpretation Comments SARS-COV2/RT-PCR (test Negative Not Detected, Negative, code = 2490036) See external report for linked test SARS-COV-2 PERFORMING LAB [facility] ERYN (test code = 2175097) Negative result for this test determines that [...] justifying the authorization of the emergency use ofin vitro diagnostic tests for detection and/or diagnosis of COVID-19 is terminated under Section 564(b)(2) of the Act or the EUA is revoked under Section 564(g) of the Act.Fact Sheet for Healthcare Prov iders:https://www.Pirq/sites/default/files/product/documents/Fact_Sheet_HC _Gsyttobbl_Rudu_MTQU-GxG-5.pdfFact Sheet for Healthcare Patients:https://www.Pirq/sites/default/files/product/docume nts/Tnry_Qtsmn_Efbltrtr_Zciq_QHMF-MuP-7.pdfPerforming Laboratory:[place] [address] [address], [place] [address]GNDTXJUTCA AND HEMATOCRIT 2019-12-02 18:29:00 Test Item Value Reference Range Interpretation Comments HEMOGLOBIN (BEAKER) (test code = 6.7 GM/DL 13.7-17.5 L 410) HEMATOCRIT (BEAKER) (test code = 20.1 % 40.1-51.0 L 411) Fitter Type Bar And Segment ID - 6000POCT-GLUCOSE [id number] 17:35:00 Test Item Value Reference Range Interpretation Comments POC-GLUCOSE METER 124 mg/dL 70-110 H : TESTED A T [facility] 6720 (BEAKER) (test code = [facility], 1538) [address]: Fitter Type Bar And Segment/Techni romain ID = [id number] for AL ONSO MENSAH, VALERIA POCT-GLUCOSE [id number] 12:32:00 Test Item Value Reference Range Interpretation Comments POC-GLUCOSE METER 76 mg/dL 70-110 : TESTED A T [facility] 6720 (BEAKER) (test code = [facility], 1538) 627[address]: Fitter Type Bar And Segment/Techni romain ID = [id number] for JJ SO MENSAH, VALERIA HEMOGLOBIN AND [id number] 12:31:00 Test Item Value Reference Range Interpretation Comments HEMOGLOBIN (BEAKER) (test code = 7.3 GM/DL 13.7-17.5 L 410) HEMATOCRIT (BEAKER) (test code = 22.1 % 40.1-51.0 L 411) Fitter Type Bar And Segment ID - 6000CBC W/PLT COUNT & AUTO [id number] 06:28:00 Test Item Value Reference Range Interpretation [...] (BEAKER) (test code = 2801) BASIC METABOLIC [id number] 06:19:00 Test Item Value Reference Range Interpretation [...] S NOT APPLICABLE FOR DIALYSIS PATIEN TS. Fitter Type Bar And Segment ID - JESUS LPROTHROMBIN [id number] 06:03:00 Test Item Value Reference Range Interpretation [...] is 2.5-3.5 for patients wiht mechanical heart valves.[id number] 00:06:00 Test Item Value Reference Range Interpretation Comments LIPASE (BEAKER) (test code = 749) 4 U/L 8-78 L Fitter Type Bar And Segment ID - JESUS LBASIC METABOLIC [id number] 23:45:00 Test Item Value Reference Range Interpretation [...] S NOT APPLICABLE FOR DIALYSIS PATIEN TS. Fitter Type Bar And Segment ID - PIAYA LHEPATIC FUNCTION [id number] 23:45:00 Test Item Value Reference Range Interpretation [...] code = < U/L 6-55 L 347) Fitter Type Bar And Segment ID - PIAYA LPROTHROMBIN TIME/[id number] 23:37:00 Test Item Value Reference Range Interpretation [...] is 2.5-3.5 for patients wiht mechanical heart valves.CBC W/PLT COUNT & AUTO [id number] 23:33:00 Test Item Value Reference Range Interpretation [...] PERCENT (BEAKER) (test code = 2801) POCT-GLUCOSE [id number] 08:48:00 Test Item Value Reference Range Interpretation Comments POC-GLUCOSE METER 70 mg/dL 70-110 : TESTED A T [facility] 6720 (BEAKER) (test code = [facility], 1538) [address]: Fitter Type Bar And Segment/Techni romain ID = [id number] for [facility] [id number] 07:51:00 Test Item Value Reference Range Interpretation Comments PHOSPHORUS (BEAKER) (test code = 3.9 mg/dL 2.3-4.7 604) Fitter Type Bar And Segment ID - STEWARTARI Jo-Anntor ID - THUAN FBASIC METABOLIC [id number] 07:39:00 Test Item Value Reference Range Interpretation [...] S NOT APPLICABLE FOR DIALYSIS PATIEN TS. Fitter Type Bar And Segment ID - JESUS [id number] 07:18:00 Test Item Value Reference Range Interpretation Comments MAGNESIUM (BEAKER) (test code = 1.4 mg/dL 1.6-2.6 L 627) Fitter Type Bar And Segment ID Binu LEE LCBC (HEMOGRAM ONLY)2019-10-24 06:33:00 Test Item [...] WBC 0-0 (BEAKER) (test code = 413) [id number] 06:32:00 Test Item Value Reference Range Interpretation [...] is 2.5-3.5 for patients wiht mechanical heart valves.POCT-GLUCOSE [id number] 21:22:00 Test Item Value Reference Range Interpretation Comments POC-GLUCOSE METER 83 mg/dL 70-110 : TESTED A T [facility] 6720 (BEAKER) (test code = [facility], 1538) [address]: Fitter Type Bar And Segment/Techni romain ID = [id number] for MACIEL ANDREWS POCT-GLUCOSE [id number] 16:39:00 Test Item Value Reference Range Interpretation Comments POC-GLUCOSE METER 70 mg/dL 70-110 : TESTED A T [facility] 6720 (BEAKER) (test code = [facility], 1538) 70[address]: Fitter Type Bar And Segment/Techni romain ID = [id number] for AKIKO S, CORNEL POCT-GLUCOSE [id number] 11:58:00 Test Item Value Reference Range Interpretation Comments POC-GLUCOSE METER 86 mg/dL 70-110 : TESTED A T [facility] 6720 (BEAKER) (test code = [facility], 1538) 98228: Fitter Type Bar And Segment/Techni romain ID = [id number] for PRINCESS LUPILLO BASIC METABOLIC [id number] 08:03:00 Test Item Value Reference Range Interpretation [...] S NOT APPLICABLE FOR DIALYSIS PATIEN TS. Fitter Type Bar And Segment ID - [id number] 08:01:00 Test Item Value Reference Range Interpretation Comments PHOSPHORUS (BEAKER) (test code = 4.2 mg/dL 2.3-4.7 604) Fitter Type Bar And Segment ID - [id number] 08:01:00 Test Item Value Reference Range Interpretation Comments MAGNESIUM (BEAKER) (test code = 1.3 mg/dL 1.6-2.6 L 627) Fitter Type Bar And Segment ID - SUDARSHANGPOCT-GLUCOSE [id number] 07:57:00 Test Item Value Reference Range Interpretation Comments POC-GLUCOSE METER 78 mg/dL 70-110 : TESTED A T [facility] 6720 (BEAKER) (test code = [place], 1538) 980[address]: Fitter Type Bar And Segment/Techni romain ID = [id number] for AKIKO S, CORNEL CBC (HEMOGRAM ONLY)2019-10-23 [...] WBC 0-0 (BEAKER) (test code = 413) [id number] 07:18:00 Test Item Value Reference Range Interpretation [...] is 2.5-3.5 for patients wiht mechanical heart valves.CBC W/PLT COUNT & AUTO [id number] 22:51:00 Test Item Value Reference Range Interpretation [...] PERCENT (BEAKER) (test code = 2801) POCT-GLUCOSE [id number] 21:49:00 Test Item Value Reference Range Interpretation Comments POC-GLUCOSE METER 110 mg/dL 70-110 : TESTED A T [facility] 6720 (BEAKER) (test code = [facility], 1538) 61141: Fitter Type Bar And Segment/Techni romain ID = [id number] for JEROMY CONTRERAS TISSUE [id number] 16:34:00Surgical Pathology Report Case: [id number] Authorizing Provider: Marc Clark MD Collected: 10/17/2019 04:26 PM Ordering Location: [facility] PERIOPERATIVE Received: 10/20/2019 08:32 AM SERVICES Pa thologist: Carmina Grewal MD Specimens: A) - Gallbladder B) - Spleen A. GALLBLADDER, CHOLECYSTECTOMY: - CHRONIC CHOLECYSTITIS AND CHOLESTEROLOSIS - NO GALLSTONE PRESENTB. SPLEEN, SPLENECTOMY: - WEIGHT: 272 GM - SPLENOMEGALY - MILD VASCULAR CONGESTION, NO SIGNIFICANT PATHOLOGIC ABNORMALITY - NEGATIVE FOR MALIGNANCY OR LYMPHOMACC/pl Signing Pathologist Direct Phone Line: [phone] signed by Carmina Grewal MD on 10/22/2019 at 4:34 [id number]; [id number] diagnosis: Chronic pancreatitis, unspecified pancreatitis type and splenic vein thrombosis. Gallbladder and spleenA. Received fresh labeled with the patient's name, accession number and "gallbladder"is a 7.5 cm in length x 1.5 cm in diameter,previously opened gallbladder. There is no attached cystic duct and no lymph node identified. The serosa is webster-purple, smooth and hyperemic. Upon opening, there is no bile or calculus present. The mucosa is york-brown and velvety. The wall thickness is 0.2 cm. Produce Inspector sections are submitted incassette A1-A2. B. Received fresh labeled with the patient's name, accession number and " spleen" mo 272 gm, 15.0 x 10.0 x 2.5 cm spleen with a scant amount of attached hilar fat. The capsule is webster-maroon and intact, no subcapsular laceration is identified. The cut surface displays a red-brown, homogeneous and unremarkable parenchyma. No masses are identified. Ink code: Blue - capsuleSection code: B1, full-thickness section capsule to hilar marginB2, parenchyma to hilar marginPerformedPOCT-GLUCOSE [id number] 15:47:00 Test Item Value Reference Range Interpretation Comments POC-GLUCOSE METER 91 mg/dL 70-110 : TESTED A T [facility] 6720 (BEAKER) (test code = [facility] [employer] [facility], 153) [address]: Fitter Type Bar And Segment/Techni romain ID = [id number] for ANDRÉS [facility] POCT-GLUCOSE [id number] 12:25:00 Test Item Value Reference Range Interpretation Comments POC-GLUCOSE METER 101 mg/dL 70-110 : TESTED A T [facility] 6720 (BEAKER) (test code = [employer] [facility], 153) [address]998: Fitter Type Bar And Segment/Techni romain ID = [id number] for VIKA [facility]. [facility] BASIC METABOLIC [id number] 10:59:00 Test Item Value Reference Range Interpretation [...] S NOT APPLICABLE FOR DIALYSIS PATIEN TS. Fitter Type Bar And Segment ID - SOTERO [id number] 10:54:00 Test Item Value Reference Range Interpretation Comments PHOSPHORUS (BEAKER) (test code = 4.6 mg/dL 2.3-4.7 604) Fitter Type Bar And Segment ID - SOTERO [id number] 10:54:00 Test Item Value Reference Range Interpretation Comments MAGNESIUM (BEAKER) (test code = 1.5 mg/dL 1.6-2.6 L 627) Fitter Type Bar And Segment ID - SOTERO MPOCT-GLUCOSE [id number] 07:03:00 Test Item Value Reference Range Interpretation Comments POC-GLUCOSE METER 177 mg/dL 70-110 H : Pt. refu sed rpt tst: (BEAKER) (test code = TESTED AT [facility] 3363 [id number]) [facility], [address]: Fitter Type Bar And Segment/Techni romain ID = [id number] for ERIC SANFORD [id number] 06:53:00 Test Item Value Reference Range Interpretation [...] is 2.5-3.5 for patients wiht mechanical heart valves.CBC (HEMOGRAM [...] 0-0 (BEAKER) (test code = 413) POCT-GLUCOSE [id number] 06:38:00 Test Item Value Reference Range Interpretation Comments POC-GLUCOSE METER 73 mg/dL 70-110 : TESTED Montrell Turner [facility] 6720 (BEAKER) (test code = [place], 1538) [address]: Fitter Type Bar And Segment/Techni romain ID = [id number] for ERIC TURCIOS POCT-GLUCOSE [id number] 23:59:00 Test Item Value Reference Range Interpretation Comments POC-GLUCOSE METER 87 mg/dL 70-110 : TESTED A T [facility] 6720 (BEAKER) (test code = CHANTE Mohamud [facility], 1538) [address]: Fitter Type Bar And Segment/Techni romain ID = [id number] for ERIC TURCIOS POCT-GLUCOSE [id number] 18:51:00 Test Item Value Reference Range Interpretation Comments POC-GLUCOSE METER 80 mg/dL 70-110 : TESTED A T [facility] 6720 (BEAKER) (test code = CHANTE Mohamud [facility], 1538) [address]: Fitter Type Bar And Segment/Techni romain ID = [id number] for Noemi Vivar AMYLASE PERITONEAL [id number] 15:15:00 Test Item Value Reference Range Interpretation Comments AMYLASE, PERITONEAL FLUID (test code = 9 U/L See Comment [id number]) Amylase activity in peritoneal fluids of non-pancreatic origin is often less than or equal to the amylase activity in blood, whereas elevated amylase activity has been reported in fluid of pancreatic origin (five-folds or higher compared to contemporaneously collected blood specimen).This test has been modified from the inspector filters's instructions and its performance characteristics were determined by [facility]. The laboratory is regulated under CLIA as qualified to perform high-complexity testing. This test has not been cleared or approved by the U.S. Food and Drug Administration. The reference intervals and other method performance specifications are unavailable for amylase in peritoneal fluid. Comparison of this result with the blood amylase is recommended.Fitter Type Bar And Segment ID - SUDARSHANGAMYLASE PERITONEAL [id number] 15:15:00 Test Item Value Reference Range Interpretation Comments AMYLASE, PERITONEAL FLUID (test code = 15 U/L See Comment [id number]) Amylase activity in peritoneal fluids of non-pancreatic origin is often less than or equal to the amylase activity in blood, whereas elevated amylase activity has been reported in fluid of pancreatic origin (five-folds or higher compared to contemporaneously collected blood specimen).This test has been modified from the inspector filters's instructions and its performance characteristics were determined by [facility]. The laboratory is regulated under CLIA as qualified to perform high-complexity testing. This test has not been cleared or approved by the U.S. Food and Drug Administration. The reference intervals and other method performance specifications are unavailable for amylase in peritoneal fluid. Comparison of this result with the blood amylase is recommended.Fitter Type Bar And Segment ID - SUDARSHANGMAGNESIUM 2019-10-21 14:08:00 Test Item Value Reference Range Interpretation Comments MAGNESIUM (BEAKER) 1.7 mg/dL 1.6-2.6 Specimen moderately (test code = 627) hemolyzed Fitter Type Bar And Segment ID - [id number] 14:08:00 Test Item Value Reference Range Interpretation Comments PHOSPHORUS (BEAKER) 4.1 mg/dL 2.3-4.7 Specimen moderately (test code = 604) hemolyzed Fitter Type Bar And Segment ID - SUDARSHANGBASIC METABOLIC [id number] 14:08:00 Test Item Value Reference Range Interpretation [...] S NOT APPLICABLE FOR DIALYSIS PATIEN TS. Fitter Type Bar And Segment ID - SUDARSHANGSARS-COV2/RT-PCR ([facility])2019-10-21 13:42:00 Test Item Value Reference Range Interpretation Comments SARS-COV2/RT-PCR (test Negative Not Detected, Negative, code = 2158618) See external report for linked test SARS-COV-2 PERFORMING LAB [facility] ERYN (test code = 0766710) Negative result for this test determines that [...] justifying the authorization of the emergency use ofin vitro diagnostic tests for detection and/or diagnosis of COVID-19 is terminated under Section 564(b)(2) of the Act or the EUA is revoked under Section 564(g) of the Act.Fact Sheet for Healthcare Prov iders:https://www.Pirq/sites/default/files/product/documents/Fact_Sheet_HC _Gvvqrhyoz_Fimw_XMSY-BtE-8.pdfFact Sheet for Healthcare Patients:https://www.Pirq/sites/default/files/product/docume nts/Yvby_Arfmp_Pukjncis_Glya_WWJA-SdR-4.pdfPerforming Laboratory:[facility], [place] [address]CYPO-IRDSVPS METER 2019-10-21 12:41:00 Test Item Value Reference Range Interpretation Comments POC-GLUCOSE METER 99 mg/dL 70-110 : TESTED Montrell Turner [facility] 6720 (TAI) (test code = CHANTE Mohamud [facility], 1538) 702[address]: Fitter Type Bar And Segment/Techni romain ID = [id number] for JONATHAN JENKINS [id number] 10:39:00 Test Item Value Reference Range Interpretation [...] is 2.5-3.5 for patients wiht mechanical heart valves.CBC (HEMOGRAM [...] CELLS (BEAKER) (test code = 413) POCT-GLUCOSE [id number] 07:09:00 Test Item Value Reference Range Interpretation Comments POC-GLUCOSE METER 155 mg/dL 70-110 H : TESTED A T [facility] 6720 ([facility]) (test code = [facility], [facility]) 16[address]: Fitter Type Bar And Segment/Techni romain ID = [id number] for UE MAXIME, PROSPER POCT-GLUCOSE [id number] 06:41:00 Test Item Value Reference Range Interpretation Comments POC-GLUCOSE METER 66 mg/dL 70-110 L : TESTED A T [facility] 6720 ([facility]) (test code = [facility], [facility]) [address]: Fitter Type Bar And Segment/Techni romain ID = [id number] for UEMA RU, PROSPER POCT-GLUCOSE [id number] 06:13:00 Test Item Value Reference Range Interpretation Comments POC-GLUCOSE METER 66 mg/dL 70-110 L : TESTED A T [facility] 6720 ([facility]) (test code = [facility], [facility]) [address]: Fitter Type Bar And Segment/Techni romain ID = [id number] for UEMA RU, PROSPER POCT-GLUCOSE [id number] 00:20:00 Test Item Value Reference Range Interpretation Comments POC-GLUCOSE METER 75 mg/dL 70-110 : TESTED A T [facility] 6720 ([facility]) (test code = [facility], [facility]) [address]: Fitter Type Bar And Segment/Techni romain ID = [id number] for UEMA RU, PROSPER POCT-GLUCOSE [id number] 17:58:00 Test Item Value Reference Range Interpretation Comments POC-GLUCOSE METER 81 mg/dL 70-110 : TESTED A T [facility] 6720 ([facility]) (test code = [facility], [facility]) 87[address]: Fitter Type Bar And Segment/Techni romain ID = [id number] for Cb, Noemi POCT-GLUCOSE [id number] 11:56:00 Test Item Value Reference Range Interpretation Comments POC-GLUCOSE METER 87 mg/dL 70-110 : Notified RN/MD: TESTED ([facility]) (test code = AT [facility] [address] [place] [id number]) [facility], 770 30: Fitter Type Bar And Segment/Techni romain ID = [id number] for Simm ons, Anna POCT-GLUCOSE [id number] 07:16:00 Test Item Value Reference Range Interpretation Comments POC-GLUCOSE METER 99 mg/dL 70-110 : TESTED A T [facility] 6720 (BEAKER) (test code = [place], 1538) [address]: Fitter Type Bar And Segment/Techni romain ID = [id number] for SOTELO IOPRINCESS JANET Rodríguez BASIC METABOLIC [id number] 04:58:00 Test Item Value Reference Range Interpretation [...] S NOT APPLICABLE FOR DIALYSIS PATIEN TS. Fitter Type Bar And Segment ID - JESUS [id number] 04:33:00 Test Item Value Reference Range Interpretation Comments PHOSPHORUS (BEAKER) (test code = 3.3 mg/dL 2.3-4.7 604) Fitter Type Bar And Segment ID - JESUS [id number] 04:33:00 Test Item Value Reference Range Interpretation Comments MAGNESIUM (BEAKER) (test code = 1.8 mg/dL 1.6-2.6 627) Fitter Type Bar And Segment ID - JESUS LCBC (HEMOGRAM ONLY)2019-10-20 04:24:00 [...] WBC 0-0 (BEAKER) (test code = 413) [id number] 04:11:00 Test Item Value Reference Range Interpretation [...] is 2.5-3.5 for patients wiht mechanical heart valves.POCT-GLUCOSE [id number] 00:29:00 Test Item Value Reference Range Interpretation Comments POC-GLUCOSE METER 91 mg/dL 70-110 : TESTED A T [facility] 6720 (BEAKER) (test code = [facility], 1538) [address]: Fitter Type Bar And Segment/Techni romain ID = [id number] for BARB BENNETT POCT-GLUCOSE [id number] 17:40:00 Test Item Value Reference Range Interpretation Comments POC-GLUCOSE METER 91 mg/dL 70-110 : TESTED A T [facility] 6720 (BEAKER) (test code = CHANTE Mohamud [place], 1538) [address]: Fitter Type Bar And Segment/Techni romain ID = [id number] for JOSY WILL [id number] 17:22:00 Test Item Value Reference Range Interpretation Comments MAGNESIUM (BEAKER) (test code = 1.7 mg/dL 1.6-2.6 627) Fitter Type Bar And Segment ID - KIRA [id number] 17:21:00 Test Item Value Reference Range Interpretation Comments PHOSPHORUS (BEAKER) (test code = 3.2 mg/dL 2.3-4.7 604) Fitter Type Bar And Segment ID - KIRA CBASIC METABOLIC [id number] 17:08:00 Test Item Value Reference Range Interpretation [...] S NOT APPLICABLE FOR DIALYSIS PATIEN TS. Fitter Type Bar And Segment ID - KIRA CPOCT-GLUCOSE [id number] 12:50:00 Test Item Value Reference Range Interpretation Comments POC-GLUCOSE METER 136 mg/dL 70-110 H : TESTED A T [facility] 6720 (BEAKER) (test code = CHANTE Moahmud [place], 1538) [address]: Fitter Type Bar And Segment/Techni romain ID = [id number] for IMANI MARTIN POCT-GLUCOSE [id number] 12:08:00 Test Item Value Reference Range Interpretation Comments POC-GLUCOSE METER 64 mg/dL 70-110 L : Will Rep eat Test: (BEAKER) (test code = Notifi ed RN/MD: TESTED 1537) AT [facility] [address] [facility], 770 30: Fitter Type Bar And Segment/Techni romain ID = [id number] for JOSY WILL RAD, CHEST, 1 VIEW, NON [id number] 08:14:00Reason for exam:->s/p intubation, s/p laparotomy, eval [...] pleura: Unchanged airspace and pleural opacities. No pneumothorax.Heart and mediastinum: Stable contours. Stable surgical changes.Additional findings: None. Signed: Vera Fowler Verified Date/Time: 10/19/2019 08:14:40 Reading Location: [address] Neuro Reading Room POCT-GLUCOSE [id number] 06:48:00 Test Item Value Reference Range Interpretation Comments POC-GLUCOSE METER 70 mg/dL 70-110 : TESTED A T [facility] 6720 (BEAKER) (test code = CHANTE Mohamud [facility], 153) [address]: Fitter Type Bar And Segment/Techni romain ID = [id number] for ORLANDO GRAY [id number] 02:18:00 Test Item Value Reference Range Interpretation [...] is 2.5-3.5 for patients wiht mechanical heart valves.[id number] 02:03:00 Test Item Value Reference Range Interpretation Comments PHOSPHORUS (BEAKER) (test code = 1.4 mg/dL 2.3-4.7 LL 604) Fitter Type Bar And Segment ID - SOTERO MBASIC METABOLIC [id number] 02:02:00 Test Item Value Reference Range Interpretation [...] S NOT APPLICABLE FOR DIALYSIS PATIEN TS. Fitter Type Bar And Segment ID - SOTERO [id number] 01:59:00 Test Item Value Reference Range Interpretation Comments MAGNESIUM (BEAKER) (test code = 1.9 mg/dL 1.6-2.6 627) Fitter Type Bar And Segment ID - SOTERO MBLOOD GAS, [id number] 01:49:00 Test Item Value Reference Range Interpretation [...] 0-0 (BEAKER) (test code = 413) POCT-GLUCOSE [id number] 00:32:00 Test Item Value Reference Range Interpretation Comments POC-GLUCOSE METER 97 mg/dL 70-110 : TESTED A T [facility] 6720 (BEAKER) (test code = CHANTE Mohamud [facility], 1538) [address]77: Fitter Type Bar And Segment/Techni romain ID = [id number] for ORLANDO GRAY CBC (HEMOGRAM ONLY)2019-10-18 20:53:00 Test Item Value Reference [...] 0-0 (BEAKER) (test code = 413) POCT-GLUCOSE [id number] 17:27:00 Test Item Value Reference Range Interpretation Comments POC-GLUCOSE METER 99 mg/dL 70-110 : TESTED A T [facility] 6720 (BEAKER) (test code = CHANTE Mohamud [facility], 1538) [address]: Fitter Type Bar And Segment/Techni romain ID = [id number] for JOSY WILL CBC (HEMOGRAM ONLY)2019-10-18 12:31:00 [...] 0-0 (BEAKER) (test code = 413) POCT-GLUCOSE [id number] 12:12:00 Test Item Value Reference Range Interpretation Comments POC-GLUCOSE METER 111 mg/dL 70-110 H : TESTED Montrell T [facility] 6720 (BEAKER) (test code = CHANTE [place]ade [place], 1538) [address]: Fitter Type Bar And Segment/Techni romain ID = [id number] for JOSY JEFF BLOOD GAS, [id number] 05:05:00 Test Item Value Reference Range Interpretation [...] code = 1819) 40.0 % BASIC METABOLIC [id number] 04:56:00 Test Item Value Reference Range Interpretation [...] S NOT APPLICABLE FOR DIALYSIS PATIEN TS. Fitter Type Bar And Segment ID - SOTERO [id number] 04:55:00 Test Item Value Reference Range Interpretation Comments PHOSPHORUS (BEAKER) (test code = 3.8 mg/dL 2.3-4.7 604) Fitter Type Bar And Segment ID - SOTERO [id number] 04:55:00 Test Item Value Reference Range Interpretation Comments MAGNESIUM (BEAKER) (test code = 1.5 mg/dL 1.6-2.6 L 627) Fitter Type Bar And Segment ID - SOTERO [id number] 04:44:00 Test Item Value Reference Range Interpretation [...] is 2.5-3.5 for patients wiht mechanical heart valves.CBC (HEMOGRAM [...] = 413) RAD, CHEST, 1 VIEW, NON [id number] 03:59:00Reason for exam:->s/p intubation, s/p laparotomyShould this be performed at the bedside?->YesFINAL REPORT Chest one view. Clinical history: s/p intubation, s/p laparotomy Comparison: Chest radiograph 07/28/2018 Technique: A single frontal view of the chest was obtained. Findings:There is a left subclavian central venous catheter with tip in the proximal right atrium.Endotracheal and feeding tubes are in satisfactory positions. The cardiomediastinal contours are stable. There is mild bibasilar subsegmental and discoid atelectasis. There is a small lucency in the left apexsuspicious for a pneumothorax. There is no pleural effusion. There are tubular structures overlying both upper quadrants, which may represent drainage catheters. Signed: Meghan Atkins [facility] Verified Date/Time: 10/18/2019 03:59:10 BLOOD GAS, [id number] 01:36:00 Test Item Value Reference Range Interpretation [...] (test code = 1819) 40.0 % POCT-GLUCOSE [id number] 00:54:00 Test Item Value Reference Range Interpretation Comments POC-GLUCOSE METER 152 mg/dL 70-110 H : TESTED A T [facility] 6720 (BEAKER) ([facility] = [facility], 1538) [address]: Fitter Type Bar And Segment/Techni romain ID = [id number] for Shasta Olmedo BASIC METABOLIC [id number] 23:38:00 Test Item Value Reference Range Interpretation [...] S NOT APPLICABLE FOR DIALYSIS PATIEN TS. Fitter Type Bar And Segment ID - [id number] 22:52:00 Test Item Value Reference Range Interpretation Comments MAGNESIUM (BEAKER) 1.7 mg/dL 1.6-2.6 Specimen slightly (test code = 627) hemolyzed Fitter Type Bar And Segment ID - [id number] 22:52:00 Test Item Value Reference Range Interpretation Comments PHOSPHORUS (BEAKER) 4.3 mg/dL 2.3-4.7 Specimen slightly (test code = 604) hemolyzed Fitter Type Bar And Segment ID - [id number] 22:51:00 Test Item Value Reference Range Interpretation [...] is 2.5-3.5 for patients wiht mechanical heart valves.CBC (HEMOGRAM [...] (BEAKER) (test code = 413) BLOOD GAS, [id number] 22:34:00 Test Item Value Reference Range Interpretation [...] (BEAKER) (test code = 1819) 40.0 % [id number] 20:02:00 Test Item Value Reference Range Interpretation Comments PARTIAL THROMBOPLASTIN TIME 38.7 seconds 22.5-36.0 H (BEAKER) (test code = 760) PROTHROMBIN [id number] 20:01:00 Test Item Value Reference Range Interpretation [...] is 2.5-3.5 for patients wiht mechanical heart valves.CALCIUM, [id number] 19:56:00 Test Item Value Reference Range Interpretation Comments CALCIUM IONIZED (BEAKER) (test 1.65 mmol/L 1.12-1.27 HH code = 698) PH, BLOOD (BEAKER) (test code = 7.25 1810) BLOOD GAS, [id number] 19:56:00 Test Item Value Reference Range Interpretation [...] (test code = 1819) 50.0 % GLUCOSE-STAT [id number] 19:56:00 Test Item Value Reference Range Interpretation Comments GLUCOSE RANDOM (BEAKER) (test code 182 mg/dL 70-110 H = 652) SODIUM NA-STAT [id number] 19:55:00 Test Item Value Reference Range Interpretation Comments SODIUM (BEAKER) (test code = 381) 135 meq/L 136-145 L POTASSIUM-STAT [id number] 19:55:00 Test Item Value Reference Range Interpretation Comments POTASSIUM (BEAKER) (test code = 4.5 meq/L 3.6-5.5 379) HGB/HCT (H&H) - STAT [id number] 19:55:00 Test Item Value Reference Range Interpretation Comments HEMOGLOBIN (BEAKER) (test code = 13.9 g/dL 13.0-16.8 410) HEMATOCRIT (BEAKER) (test code = 41.0 % 40.0-50.0 411) CALCIUM, [id number] 19:10:00 Test Item Value Reference Range Interpretation Comments CALCIUM IONIZED (BEAKER) (test 1.00 mmol/L 1.12-1.27 L code = 698) PH, BLOOD (BEAKER) (test code = 7.35 1810) BLOOD GAS, [id number] 19:09:00 Test Item Value Reference Range Interpretation [...] (test code = 1819) 50.0 % GLUCOSE-STAT [id number] 19:09:00 Test Item Value Reference Range Interpretation Comments GLUCOSE RANDOM (BEAKER) (test code 146 mg/dL 70-110 H = 652) HGB/HCT (H&H) - STAT [id number] 19:09:00 Test Item Value Reference Range Interpretation Comments HEMOGLOBIN (BEAKER) (test code = 12.0 g/dL 13.0-16.8 L 410) HEMATOCRIT (BEAKER) (test code = 35.0 % 40.0-50.0 L 411) SODIUM NA-STAT [id number] 19:08:00 Test Item Value Reference Range Interpretation Comments SODIUM (BEAKER) (test code = 381) 136 meq/L 136-145 POTASSIUM-STAT [id number] 19:08:00 Test Item Value Reference Range Interpretation Comments POTASSIUM (BEAKER) (test code = 3.8 meq/L 3.6-5.5 379) POTASSIUM-STAT [id number] 17:33:00 Test Item Value Reference Range Interpretation Comments POTASSIUM (BEAKER) (test code = 2.6 meq/L 3.6-5.5 LL 379) HGB/HCT (H&H) - STAT [id number] 17:25:00 Test Item Value Reference Range Interpretation Comments HEMOGLOBIN (BEAKER) (test code = 9.9 g/dL 13.0-16.8 L 410) HEMATOCRIT (BEAKER) (test code = 29.0 % 40.0-50.0 L 411) BLOOD GAS, [id number] 17:24:00 Test Item Value Reference Range Interpretation [...] (test code = 1819) 100.0 % GLUCOSE-STAT [id number] 17:24:00 Test Item Value Reference Range Interpretation Comments GLUCOSE RANDOM (BEAKER) (test code 130 mg/dL 70-110 H = 652) SODIUM NA-STAT [id number] 17:23:00 Test Item Value Reference Range Interpretation Comments SODIUM (BEAKER) (test code = 381) 136 meq/L 136-145 FL, FLUORO, NON-SPECIFIC, UP TO 1 [id number] 17:22:16Reason for exam:->cholangiogramFluoroscopic unit utilized for a procedure performed in the OR. No interpretation was requested. Refer to the operative report for findings. Refer to PACS for patient radiation dose information.BLOOD GAS, [id number] 15:40:00 Test Item Value Reference Range Interpretation [...] (test code = 1819) 100.0 % POTASSIUM-STAT [id number] 15:40:00 Test Item Value Reference Range Interpretation Comments POTASSIUM (BEAKER) (test code = 3.1 meq/L 3.6-5.5 L 379) HGB/HCT (H&H) - STAT [id number] 15:40:00 Test Item Value Reference Range Interpretation Comments HEMOGLOBIN (BEAKER) (test code = 12.4 g/dL 13.0-16.8 L 410) HEMATOCRIT (BEAKER) (test code = 36.0 % 40.0-50.0 L 411) GLUCOSE-STAT [id number] 15:38:00 Test Item Value Reference Range Interpretation Comments GLUCOSE RANDOM (BEAKER) (test code 108 mg/dL 70-110 = 652) SODIUM NA-STAT [id number] 15:38:00 Test Item Value Reference Range Interpretation Comments SODIUM (BEAKER) (test code = 381) 139 meq/L 136-145 POCT-GLUCOSE [id number] 06:35:00 Test Item Value Reference Range Interpretation Comments POC-GLUCOSE METER 121 mg/dL 70-110 H : TESTED A T [facility] 6720 (BEAKER) (test code = [place], 1538) [address]: Fitter Type Bar And Segment/Techni romain ID = [id number] for CATINA ALTMAN POCT-GLUCOSE [id number] 01:25:00 Test Item Value Reference Range Interpretation Comments POC-GLUCOSE METER 88 mg/dL 70-110 : TESTED A Johnny [facility] 6720 (BEAKER) (test code = [place], 1538) [address]: Fitter Type Bar And Segment/Techni romain ID = [id number] for CATINA VEE CT, [id number] 13:25:003-phase: venous, arterial, and non-conUnlisted Reason for Exam - Click Yes and Enter Reason Below->YesUnlisted Reason for Exam->concern for splenic vein thrombosisPlease specify:->Multiphase Liver FINAL REPORT TECHNIQUE: CT of the abdomen and pelvis WITHOUT and WITH intravenous contrast and WITHOUT oral contrast. Dose modulation, iterative reconstruction, and/or weight-basedadjustment of the mA/kV was utilized to reduce the radiation dose to as low as reasonably achievable. INDICATION: Epigastric pain, concern for splenic vein thrombosis.. COMPARISON: 07/13/2018, noncontrast CT, 06/05/2018 FINDINGS: LOWER THORAX: Small bilateral pleural effusions with lower lobe atelectasis.. HEPATOBILIARY: No focal hepatic lesions. Gallbladder is unremarkable. There is mild intra and extrahepatic biliary duct dilation with narrowing of the common bile duct in the region of the pancreatichead...SPLEEN: Spleen is mildly enlarged measuring 14 cm [...] biliary ductal dilation. Findings may related to distalcommon bile duct stricture related to prior pancreatitis. Small volume ascites and small bilateral pleural effusions. Signed: Jessenia Newman MDReport Verified Date/Time: 10/16/2019 13:25:44 Reading Location: [address] Body Reading Room POCT-GLUCOSE [id number] 12:59:00 Test Item Value Reference Range Interpretation Comments POC-GLUCOSE METER 148 mg/dL 70-110 H : TESTED A T [facility] 6720 (BEAKER) (test code = [facility] [employer] [facility], 1538) [address]: Fitter Type Bar And Segment/Techni romain ID = [id number] for ANDERS BRADSHAW POCT-GLUCOSE [id number] 12:26:00 Test Item Value Reference Range Interpretation Comments POC-GLUCOSE METER 50 mg/dL 70-110 L : TESTED A T [facility] 6720 (BEAKER) (test code = [facility], 1538) [address]: Fitter Type Bar And Segment/Techni romain ID = [id number] for RODRIGUEZ S, PRATIK URINALYSIS W/ [id number] 09:32:00 Test Item Value Reference Range Interpretation [...] = 1585) Few SOURCE(BEAKER) (test code = 3918) Fitter Type Bar And Segment ID - [auto]Fitter Type Bar And Segment ID - hankPOCT-GLUCOSE [id number] 09:15:00 Test Item Value Reference Range Interpretation Comments POC-GLUCOSE METER 180 mg/dL 70-110 H : TESTED A T [facility] 6720 (BEAKER) (test code = [facility], 1538) [address]: Fitter Type Bar And Segment/Techni rmoain ID = [id number] for SHABANA MEDINA, RITCHEL POCT-GLUCOSE [id number] 08:42:00 Test Item Value Reference Range Interpretation Comments POC-GLUCOSE METER 50 mg/dL 70-110 L : TESTED A T [facility] 6720 (BEAKER) (test code = [facility], 1538) [address]: Fitter Type Bar And Segment/Techni romain ID = [id number] for AKOSUA GOMES, RITCHEL COMPREHENSIVE METABOLIC [id number] 07:47:00 Test Item Value Reference Range Interpretation [...] S NOT APPLICABLE FOR DIALYSIS PATIEN TS. Fitter Type Bar And Segment ID - PIAYA [id number] 06:14:00 Test Item Value Reference Range Interpretation [...] is 2.5-3.5 for patients wiht mechanical heart valves.CBC (HEMOGRAM [...] 0-0 (test code = 413) HEPATIC FUNCTION [id number] 14:38:00 Test Item Value Reference Range Interpretation [...] (test code = 11 U/L 6-55 347) Fitter Type Bar And Segment ID - KIRA CBASI METABOLIC [id number] 14:38:00 Test Item Value Reference Range Interpretation [...] S NOT APPLICABLE FOR DIALYSIS PATIEN TS. Fitter Type Bar And Segment ID - KIRA CSARS-COV2/RT-PCR ([facility])2019-10-14 11:39:00 Test Item Value Reference Range Interpretation Comments SARS-COV2/RT-PCR (test Negative Not Detected, Negative, code = 8109398) See external report for linked test SARS-COV-2 PERFORMING LAB [facility] (test code = 2948355) Negative result for this test determines that [...] justifying the authorization of the emergency use ofin vitro diagnostic tests for detection and/or diagnosis of COVID-19 is terminated under Section 564(b)(2) of the Act or the EUA is revoked under Section 564(g) of the Act.Fact Sheet for Healthcare Prov iders:https://www.Pirq/sites/default/files/product/documents/Fact_Sheet_HC _Eqcalyfgf_Bitp_MMUI-WiW-1.pdfFact Sheet for Healthcare Patients:[email or web address] Laboratory:[facility], [place] [address]PNM, ABDOMEN/KUB, 1 VIEW [id number] 09:37:00Reason for exam:->Eval for persistence of CBD stentFINAL REPORT TECHNIQUE: Frontal view of the abdomen. INDICATION: 29-year-old man with common bile duct stent. COMPARISON: None. IMPRESSION:No stent identified in the expected region of the bile ducts. Nonobstructive bowel gas pattern. Bones are unremarkable. Retained contrast in the bladder. Clip projects over the left upper quadrant. Signed: Adán Herrmann MDReport Verified Date/Time: 10/14/2019 09:37:48 Reading Location: [facility] Diagnostic Imaging Reading Room - [place] [address] [id number] 09:18:00 Test Item Value Reference Range Interpretation Comments LIPASE (BEAKER) (test code = 749) 390 U/L 8-78 H [employer] ID - KIRA [id number] 09:18:00 Test Item Value Reference Range Interpretation Comments TRIGLYCERIDES (BEAKER) (test code = 66 mg/dL 540) TRIGLYCERIDE REFERENCE RANGELow Risk <150Borderline Risk 150-199High Risk 200-499Very High Risk >=500Operator ID - KIRA [id number] 08:41:00 Test Item Value Reference Range Interpretation Comments MAGNESIUM (BEAKER) (test code = 1.6 mg/dL 1.6-2.6 627) [employer] ID - KIRA CBASIC METABOLIC [id number] 08:41:00 Test Item Value Reference Range Interpretation [...] S NOT APPLICABLE FOR DIALYSIS PATIEN TS. [employer] ID - KIRA CHEPATIC FUNCTION [id number] 08:41:00 Test Item Value Reference Range Interpretation [...] (test code = 14 U/L 6-55 347) [employer] ID - KIRA ABADON, TIBC, % SAT. (WITHOUT FERRITIN)2019-10-14 08:38:00 Test Item Value Reference Range Interpretation Comments IRON (BEAKER) (test code = 547) 32.0 ug/dL 40.0-160.0 L TOTAL IRON BINDING CAPACITY 214 ug/dL 250-450 L (BEAKER) (test code = 769) IRON % SATURATION (2) (BEAKER) 15 % 20-55 L (test code = 2590) [employer] ID - KIRA CCBC W/PLT COUNT & AUTO [id number] 05:36:00 Test Item Value Reference Range Interpretation [...] 0-1 PERCENT (BEAKER) (test code = 2801) [id number] 05:24:00 Test Item Value Reference Range Interpretation [...] is 2.5-3.5 for patients wiht mechanical heart valves.CHEM [id number] 10:48:00 Test Item Value Reference Range Interpretation Comments Amylase Lvl (test code = Amylase Lvl) 17 25-115 [facility] [employer] [id number] 10:48:00 Test Item Value Reference Range Interpretation Comments Glucose Lvl (test code = Glucose Lvl) 104 70-99 [facility] [employer] [id number] 10:48:00 Test Item Value Reference Range Interpretation Comments BUN (test code = BUN) 1 7-22 [facility] [employer] [id number] 10:48:00 Test Item Value Reference Range Interpretation Comments Creatinine Lvl (test code = Creatinine 0.50 0.50-1.40 Lvl) [facility]2020-07-26 10:48:00 Test Item Value Reference Range Interpretation Comments Sodium Lvl (test code = Sodium Lvl) 145 135-145 [facility]2020-07-26 10:48:00 Test Item Value Reference Range Interpretation Comments Potassium Lvl (test code = Potassium 3.1 3.5-5.1 Lvl) [facility]2020-07-26 10:48:00 Test Item Value Reference Range Interpretation Comments Chloride Lvl (test code = Chloride Lvl) 109 95-109 [facility]2020-07-26 10:48:00 Test Item Value Reference Range Interpretation Comments CO2 (test code = CO2) 25 24-32 [place] 796190-07-26 10:48:00 Test Item Value Reference Range Interpretation Comments AGAP (test code = AGAP) 14.1 10.0-20.0 [place] 796190-07-26 10:48:00 Test Item Value Reference Range Interpretation Comments Calcium Lvl (test code = Calcium Lvl) 7.4 8.5-10.5 [facility]2020-07-26 10:48:00 Test Item Value Reference Range Interpretation Comments eGFR (test code = eGFR) 145 [facility]2020-07-26 10:48:00 Test Item Value Reference Range Interpretation Comments Lipase Lvl (test code = Lipase Lvl) 104 73-393 [facility]GpzgkqvFMHTLJSWHR7117-14-01 10:48:00 Test Item Value Reference Range Interpretation Comments WBC (test code = WBC) 5.9 3.7-10.4 [place] [address]2800-07-26 10:48:00 Test Item Value Reference Range Interpretation Comments RBC (test code = RBC) 3.00 4.70-6.10 [place] [address]-07-26 10:48:00 Test Item Value Reference Range Interpretation Comments Hgb (test code = Hgb) 9.1 14.0-18.0 [place] [address]-07-26 10:48:00 Test Item Value Reference Range Interpretation Comments Hct (test code = Hct) 26.4 42.0-54.0 [place] [address]2800-07-26 10:48:00 Test Item Value Reference Range Interpretation Comments MCV (test code = MCV) 88.1 80.0-94.0 [place] [address]-07-26 10:48:00 Test Item Value Reference Range Interpretation Comments MCH (test code = MCH) 30.2 pg 27.0-31.0 [facility] CenterXovbzarQVPOQGVQSJ0910-59-65 10:48:00 Test Item Value Reference Range Interpretation Comments MCHC (test code = MCHC) 34.3 32.0-36.0 [facility] CenterSdrlwrqMNMGJIOEBS1008-92-14 10:48:00 Test Item Value Reference Range Interpretation Comments RDW (test code = RDW) 14.6 11.5-14.5 [place] [address]-07-26 10:48:00 Test Item Value Reference Range Interpretation Comments Platelet (test code = Platelet) 341 133-450 [facility] CenterVlvwbflZAKOPYOHXT6780-79-97 10:48:00 Test Item Value Reference Range Interpretation Comments MPV (test code = MPV) 8.8 7.4-10.4 [facility] CenterUcmcplkXAEEOWGKDD0034-30-83 10:48:00 Test Item Value Reference Range Interpretation Comments Segs (test code = Segs) 71.9 45.0-75.0 [facility] CenterPgzxjwtKRPVLYZTDB8407-11-44 10:48:00 Test Item Value Reference Range Interpretation Comments Lymphocytes (test code = Lymphocytes) 13.3 20.0-40.0 [facility] CenterUoofuzoKNKCMGXWYQ4554-92-21 10:48:00 Test Item Value Reference Range Interpretation Comments Monocytes (test code = Monocytes) 11.1 2.0-12.0 [place] [address]-07-26 10:48:00 Test Item Value Reference Range Interpretation Comments Eosinophils (test code = 3.1 See_Comment [A utomated message] The Eosinophils) system which ge nerated this result tra nsmitted reference range : <=4.0. The reference r soila was not used to int erpret this result as normal/abnormal . [facility] CenterCgxkcnnLGVFWRPZAC8779-02-74 10:48:00 Test Item Value Reference Range Interpretation Comments Basophils (test code = 0.6 See_Comment [Aut omated message] The Basophils) system which ge nerated this result tra nsmitted reference range : <=1.0. The reference r soila was not used to int erpret this result as normal/abnormal . [facility] CenterDsqtfonJRXBFABFRF3838-19-98 10:48:00 Test Item Value Reference Range Interpretation Comments Neutrophils # (test code = Neutrophils 4.3 1.5-8.1 #) [facility] CenterNwouhgpNYWGMMWKIH2167-04-54 10:48:00 Test Item Value Reference Range Interpretation Comments Lymphocytes # (test code = Lymphocytes 0.8 1.0-5.5 #) [facility] CenterLiteekjIBNXXDKUWE1412-46-10 10:48:00 Test Item Value Reference Range Interpretation Comments Monocytes # (test code 0.7 See_Comment [Aut omated message] The = Monocytes #) system which generated this result tra nsmitted reference range : <=0.8. The reference r soila was not used to int erpret this result as normal/abnormal . [facility] CenterWuyovzaPMSRTHWXXT2613-57-20 10:48:00 Test Item Value Reference Range Interpretation Comments Eosinophils # (test code 0.2 See_Comment [A utomated message] The = Eosinophils #) system whic h generated this result tra nsmitted reference range : <=0.5. The reference r soila was not used to int erpret this result as normal/abnormal . [facility] CenterGkazymgHOJGZOCPEX8165-71-47 10:48:00 Test Item Value Reference Range Interpretation Comments Basophils # (test code 0.0 See_Comment [Aut omated message] The = Basophils #) system which generated this result tra nsmitted reference range : <=0.2. The reference r soila was not used to int erpret this result as normal/abnormal . [facility]2020-07-25 09:13:00 Test Item Value Reference Range Interpretation Comments Glucose Lvl (test code = Glucose Lvl) 57 70-99 [place] 796190-07-25 09:13:00 Test Item Value Reference Range Interpretation Comments BUN (test code = BUN) 2 7-22 [place] 796190-07-25 09:13:00 Test Item Value Reference Range Interpretation Comments Creatinine Lvl (test code = Creatinine 0.40 0.50-1.40 Lvl) [place] 796190-07-25 09:13:00 Test Item Value Reference Range Interpretation Comments Sodium Lvl (test code = Sodium Lvl) 143 135-145 [facility]2020-07-25 09:13:00 Test Item Value Reference Range Interpretation Comments Potassium Lvl (test code = Potassium 3.5 3.5-5.1 Lvl) [facility]2020-07-25 09:13:00 Test Item Value Reference Range Interpretation Comments Chloride Lvl (test code = Chloride Lvl) 109 95-109 [place] 796190-07-25 09:13:00 Test Item Value Reference Range Interpretation Comments CO2 (test code = CO2) 22 24-32 [place] 796190-07-25 09:13:00 Test Item Value Reference Range Interpretation Comments Calcium Lvl (test code = Calcium Lvl) 7.7 8.5-10.5 [facility]2020-07-25 09:13:00 Test Item Value Reference Range Interpretation Comments AGAP (test code = AGAP) 15.5 10.0-20.0 [place] 796190-07-25 09:13:00 Test Item Value Reference Range Interpretation Comments eGFR (test code = eGFR) 159 [place] 796190-07-25 09:13:00 Test Item Value Reference Range Interpretation Comments Procalcitonin Lvl (test no gt See_Comment [Au tomated message] code = Procalcitonin Lvl) e system which generated this result transmitted ref erence range: <=0.10. The reference range was not used to interpr et this result as normal/abnormal . [facility] CenterBfaxqtoEKDWNTGFVV5388-75-51 09:13:00 Test Item Value Reference Range Interpretation Comments WBC (test code = WBC) 6.2 3.7-10.4 [place] [address]-07-25 09:13:00 Test Item Value Reference Range Interpretation Comments RBC (test code = RBC) 2.92 4.70-6.10 [place] [address]-07-25 09:13:00 Test Item Value Reference Range Interpretation Comments Hgb (test code = Hgb) 8.5 14.0-18.0 [place] [address]-07-25 09:13:00 Test Item Value Reference Range Interpretation Comments Hct (test code = Hct) 26.2 42.0-54.0 [place] [address]-07-25 09:13:00 Test Item Value Reference Range Interpretation Comments MCV (test code = MCV) 89.6 80.0-94.0 [place] [address]-07-25 09:13:00 Test Item Value Reference Range Interpretation Comments MCH (test code = MCH) 29.0 pg 27.0-31.0 [place] [address]2800-07-25 09:13:00 Test Item Value Reference Range Interpretation Comments MCHC (test code = MCHC) 32.4 32.0-36.0 [place] [address]-07-25 09:13:00 Test Item Value Reference Range Interpretation Comments RDW (test code = RDW) 15.0 11.5-14.5 [place] [address]-07-25 09:13:00 Test Item Value Reference Range Interpretation Comments Platelet (test code = Platelet) 323 133-450 [facility] CenterHhqogwdGFXAEHVHEA5533-91-36 09:13:00 Test Item Value Reference Range Interpretation Comments MPV (test code = MPV) 8.6 7.4-10.4 [place] [address]-07-25 09:13:00 Test Item Value Reference Range Interpretation Comments Segs (test code = Segs) 77.2 45.0-75.0 [place] [address]-07-25 09:13:00 Test Item Value Reference Range Interpretation Comments Lymphocytes (test code = Lymphocytes) 11.4 20.0-40.0 [place] [address]-07-25 09:13:00 Test Item Value Reference Range Interpretation Comments Monocytes (test code = Monocytes) 9.1 2.0-12.0 [place] [address]-07-25 09:13:00 Test Item Value Reference Range Interpretation Comments Eosinophils (test code = 1.8 See_Comment [A utomated message] The Eosinophils) system which ge nerated this result tra nsmitted reference range : <=4.0. The reference r soila was not used to int erpret this result as normal/abnormal . [place] [address]-07-25 09:13:00 Test Item Value Reference Range Interpretation Comments Basophils (test code = 0.5 See_Comment [Aut omated message] The Basophils) system which ge nerated this result tra nsmitted reference range : <=1.0. The reference r soila was not used to int erpret this result as normal/abnormal . [facility] CenterXbcppadRIBVVMHXSW4296-48-69 09:13:00 Test Item Value Reference Range Interpretation Comments Neutrophils # (test code = Neutrophils 4.7 1.5-8.1 #) [facility] CenterNpzdazdPGSPRQJXAQ9818-93-64 09:13:00 Test Item Value Reference Range Interpretation Comments Lymphocytes # (test code = Lymphocytes 0.7 1.0-5.5 #) [place] [address]-07-25 09:13:00 Test Item Value Reference Range Interpretation Comments Monocytes # (test code 0.6 See_Comment [Aut omated message] The = Monocytes #) system which generated this result tra nsmitted reference range : <=0.8. The reference r soila was not used to int erpret this result as normal/abnormal . [place] [address]-07-25 09:13:00 Test Item Value Reference Range Interpretation Comments Eosinophils # (test code 0.1 See_Comment [A utomated message] The = Eosinophils #) system whic h generated this result tra nsmitted reference range : <=0.5. The reference r soila was not used to int erpret this result as normal/abnormal . [facility]DzuepziCXWFJSZCEV5532-10-49 11:29:00 Test Item Value Reference Range Interpretation Comments Coronavirus (COVID-19) Not Detected (08/29/19 RIK (test code = 6:29 AM) Coronavirus (COVID-19) RIK) [facility]2020-07-24 09:30:00 Test Item Value Reference Range Interpretation Comments Glucose Lvl (test code = Glucose Lvl) 71 70-99 [facility]2020-07-24 09:30:00 Test Item Value Reference Range Interpretation Comments BUN (test code = BUN) 3 7- [facility]2020-07-24 09:30:00 Test Item Value Reference Range Interpretation Comments Creatinine Lvl (test code = Creatinine 0.50 0.50-1.40 Lvl) [facility]2020-07-24 09:30:00 Test Item Value Reference Range Interpretation Comments Sodium Lvl (test code = Sodium Lvl) 143 135-145 [facility]2020-07-24 09:30:00 Test Item Value Reference Range Interpretation Comments Potassium Lvl (test code = Potassium 3.3 3.5-5.1 Lvl) [place] 796190-07-24 09:30:00 Test Item Value Reference Range Interpretation Comments Chloride Lvl (test code = Chloride Lvl) 110 95-109 [place] 796190-07-24 09:30:00 Test Item Value Reference Range Interpretation Comments CO2 (test code = CO2) 26 24-32 [place] [address]96190-07-24 09:30:00 Test Item Value Reference Range Interpretation Comments Calcium Lvl (test code = Calcium Lvl) 8.2 8.5-10.5 [place] [address]96190-07-24 09:30:00 Test Item Value Reference Range Interpretation Comments AGAP (test code = AGAP) 10.3 10.0-20.0 [place] 796190-07-24 09:30:00 Test Item Value Reference Range Interpretation Comments eGFR (test code = eGFR) 145 [facility] CenterJvviaxhJTFSJKHTGL7222-11-41 09:30:00 Test Item Value Reference Range Interpretation Comments WBC (test code = WBC) 5.2 3.7-10.4 [place] [address]-07-24 09:30:00 Test Item Value Reference Range Interpretation Comments RBC (test code = RBC) 2.91 4.70-6.10 [place] [address]2800-07-24 09:30:00 Test Item Value Reference Range Interpretation Comments Hgb (test code = Hgb) 8.8 14.0-18.0 [place] [address]-07-24 09:30:00 Test Item Value Reference Range Interpretation Comments Hct (test code = Hct) 25.8 42.0-54.0 [place] [address]-07-24 09:30:00 Test Item Value Reference Range Interpretation Comments MCV (test code = MCV) 88.8 80.0-94.0 [place] [address]2800-07-24 09:30:00 Test Item Value Reference Range Interpretation Comments MCH (test code = MCH) 30.3 pg 27.0-31.0 [place] 142800-07-24 09:30:00 Test Item Value Reference Range Interpretation Comments MCHC (test code = MCHC) 34.1 32.0-36.0 [facility] CenterYojcrnwGTYVLLKOJE5993-20-51 09:30:00 Test Item Value Reference Range Interpretation Comments RDW (test code = RDW) 14.4 11.5-14.5 [facility] CenterEcqlxplLPWMDOPAYQ0359-51-60 09:30:00 Test Item Value Reference Range Interpretation Comments Platelet (test code = Platelet) 316 133-450 [facility] CenterHseunlyPQWWOGJNLF7266-28-54 09:30:00 Test Item Value Reference Range Interpretation Comments MPV (test code = MPV) 8.6 7.4-10.4 [place] [address]-07-24 09:30:00 Test Item Value Reference Range Interpretation Comments RBC Morph (test code = Normal (08/29/19 4:30 RBC Morph) AM) [facility] CenterMmqhwheYWEBUEZSBX9411-43-62 09:30:00 Test Item Value Reference Range Interpretation Comments Plt Morph (test code = Normal (08/29/19 4:30 Plt Morph) AM) [facility] CenterGpfaezxVDKZUWAFDM2480-97-37 09:30:00 Test Item Value Reference Range Interpretation Comments Segs (test code = Segs) 70.7 45.0-75.0 [facility] CenterTuuupxgFSIMXTMCYC4742-84-48 09:30:00 Test Item Value Reference Range Interpretation Comments Lymphocytes (test code = Lymphocytes) 17.3 20.0-40.0 [facility] CenterUqhgjfvADEQDPVZUP2641-07-48 09:30:00 Test Item Value Reference Range Interpretation Comments Monocytes (test code = Monocytes) 10.4 2.0-12.0 [facility] CenterJkbwuasFEEYEBQQIO9186-98-50 09:30:00 Test Item Value Reference Range Interpretation Comments Eosinophils (test code = 1.0 See_Comment [A utomated message] The Eosinophils) system which ge nerated this result tra nsmitted reference range : <=4.0. The reference r soila was not used to int erpret this result as normal/abnormal . [facility] CenterBkendseKZJIUVFFVX3965-87-19 09:30:00 Test Item Value Reference Range Interpretation Comments Basophils (test code = 0.6 See_Comment [Aut omated message] The Basophils) system which ge nerated this result tra nsmitted reference range : <=1.0. The reference r soila was not used to int erpret this result as normal/abnormal . [place] [address]-07-24 09:30:00 Test Item Value Reference Range Interpretation Comments Neutrophils # (test code = Neutrophils 3.6 1.5-8.1 #) [facility] CenterApoyttsGOCXJDJLYP3227-76-89 09:30:00 Test Item Value Reference Range Interpretation Comments Lymphocytes # (test code = Lymphocytes 0.9 1.0-5.5 #) [facility] 09:30:00 Test Item Value Reference Range Interpretation Comments Monocytes # (test code 0.5 See_Comment [Aut omated message] The = Monocytes #) system which generated this result tra nsmitted reference range : <=0.8. The reference r soila was not used to int erpret this result as normal/abnormal . [facility]OkllpxfJWVXBFMWDC2376-48-42 09:30:00 Test Item Value Reference Range Interpretation Comments Eosinophils # (test code 0.1 See_Comment [A utomated message] The = Eosinophils #) system whic h generated this result tra nsmitted reference range : <=0.5. The reference r soila was not used to int erpret this result as normal/abnormal . [facility] [employer] YIUMDNN4832-38-21 10:41:00 Test Item Value Reference Range Interpretation Comments RBC product (test code Product available = RBC product) 4(08/28/19 5:41 AM) [facility] [employer] [id number] 08:37:00 Test Item Value Reference Range Interpretation Comments Antibody Scrn (test Negative (08/28/19 3:37 code = Antibody Scrn) AM) [facility] [employer]2020-07-23 08:37:00 Test Item Value Reference Range Interpretation Comments ABO/Rh (test code = ABO/Rh) A POS [facility] [employer]2020-07-23 08:37:00 Test Item Value Reference Range Interpretation Comments Total Protein (test code = Total 5.1 6.4-8.4 Protein) [facility] [employer]2020-07-23 08:37:00 Test Item Value Reference Range Interpretation Comments Albumin Lvl (test code = Albumin Lvl) 1.2 3.5-5.0 [facility] [employer]2020-07-23 08:37:00 Test Item Value Reference Range Interpretation Comments ALT (test code = ALT) 7 See_Comment [Auto mated message] The system which ge nerated this result transmit leti reference range : <=65. The reference range was not used to interpr et this result as digna l/abnormal. [employer] [id number] 08:37:00 Test Item Value Reference Range Interpretation Comments AST (test code = AST) 14 See_Comment [Auto mated message] The system which ge nerated this result transmit leti reference range : <=37. The reference range was not used to interpr et this result as digna l/abnormal. [facility] [employer] [id number] 08:37:00 Test Item Value Reference Range Interpretation Comments Alk Phos (test code = Alk Phos) 88 39-136 [facility] [employer] [id number] 08:37:00 Test Item Value Reference Range Interpretation Comments Bili Total (test code = Bili Total) 0.3 0.2-1.3 [facility] [employer] [id number] 08:37:00 Test Item Value Reference Range Interpretation Comments B/C Ratio (test code = B/C Ratio) 12 1 6-25 [facility] [employer] [id number] 08:37:00 Test Item Value Reference Range Interpretation Comments Globulin (test code = Globulin) 3.9 2.7-4.2 [facility] [employer] BPGGJ8667-25-24 08:37:00 Test Item Value Reference Range Interpretation Comments A/G Ratio (test code = A/G Ratio) 0.3 1 0.7-1.6 [facility] MnmuaxtVFQRXAMCRS6848-63-90 08:37:00 Test Item Value Reference Range Interpretation Comments PT (test code = PT) 17.3 s 12.0-14.7 [facility] GrjyyjyYETLDXZJSC1870-91-78 08:37:00 Test Item Value Reference Range Interpretation Comments INR (test code = INR) 1.40 1 0.85-1.17 [facility] YrcwncfZCGEVUQDNJ0525-73-29 08:37:00 Test Item Value Reference Range Interpretation Comments PTT (test code = PTT) 45.5 s 22.9-35.8 [facility] AmzdtxaFNKUJOXSLF0896-73-11 08:37:00 Test Item Value Reference Range Interpretation Comments RBC Morph (test code = Normal (08/28/19 3:37 RBC Morph) AM) [facility]OoevevlKXSWMAMEIA8873-47-88 08:37:00 Test Item Value Reference Range Interpretation Comments Plt Morph (test code = Normal (08/28/19 3:37 Plt Morph) AM) [facility] CsfsihsMHISWBJKCI7317-29-23 08:37:00 Test Item Value Reference Range Interpretation Comments Basophils # (test code 0.0 See_Comment [Aut omated message] The = Basophils #) system which generated this result tra nsmitted reference range : <=0.2. The reference r soila was not used to int erpret this result as normal/abnormal . [facility]-COV2/RT-PCR (HS & REF LABS)2019-08-27 00:51:00 Test Item Value Reference Range Interpretation Comments SARS-COV2/RT-PCR (test Not Detected Not Detected, Negative, code = 6074296) See external report for linked test SARS-COV-2 PERFORMING LAB [facility] (test code = 5062245) Negative results do not preclude SARS-CoV-2 infection [...] of the Act.Fact Sheet for Healthcare Pro viders:https://www.[address].[employer]en/Documents/Xpert%20Xpress%20SARS%20CoV-2/Fact%20Sh eets/302-3331%26HOMH-ORW-6%20HEALTHCARE%20PROVIDERS%20FACT%20SHEET.pdfFact Sheet for Healthcare Patients:https://www.cephe id.com/Documents/Xpert%20Xpress%20SARS%20CoV-2/Fact%20Sheets/3023801%20SARS-COV -2%20PATIENT%20FACT%20SHEET.pdfPerforming Laboratory:[address], [place] [address]PLHZLMYC7324-61-33 17:29:00Medical Cytology Report Case: [id number] Authorizing Provider: Uriah Childs Collected: 02/15/2019 1226 Ordering Location: [address] Received: 02/15/2019 1529 Service Pathologist: Nereyda Causey MD Specimen: Common Bile Duct, Distal bile duct brushing in CRR COMMON BILE DUCT BRUSHING (CYTOSPINS AND CELL BLOCK): - MILDLY ATYPICAL CELLS PRESENT, FAVOR REACTIVE (SEE COMMENT) SigningPathologist Direct Phone Line: [phone] signed by Nereyda Causey MD on 02/18/2019 at 5:29 PMFew mildly atypical cells are present and with the history of stent, a reactive process is favored. Clinical correlation is recommended.82850, 31800Enfzatiu, a localized biliary stricture withupstream dilationCOMMON BILE DUCT PCMIJXLS85 mls in cytorich red; 2 cytospins, cell block (collodionbag)Collected: [id number]: [id number].SatisfactoryBaylor Herrick [facility], Department of Pathology, [address] [place] [address], [facility]jfdm[facility], [facility] of [facility]ology, [address] [place] [address], FyffwbQueen of the Valley [facility], Department of Pathology, [address] [place] [address], [id number] 14:54:00 Test Item Value Reference Range Interpretation Comments FERRITIN (BEAKER) (test code = 361) 187 ng/mL 5-275 Fitter Type Bar And Segment ID - LACOMPREHENSIVE METABOLIC [id number] 14:41:00 Test Item Value Reference Range Interpretation [...] S NOT APPLICABLE FOR DIALYSIS PATIEN TS. Fitter Type Bar And Segment ID - KIRA CSpecimen slightly ictericHEMOGLOBIN AND [id number] 12:27:00 Test Item Value Reference Range Interpretation Comments HEMOGLOBIN (BEAKER) (test code = 9.0 GM/DL 13.7-17.5 L 410) HEMATOCRIT (BEAKER) (test code = 29.6 % 40.1-51.0 L 411) Fitter Type Bar And Segment ID - 6000BASIC METABOLIC [id number] 11:55:00 Test Item Value Reference Range Interpretation [...] S NOT APPLICABLE FOR DIALYSIS PATIEN TS. Fitter Type Bar And Segment ID - cmym52Fdasrfvo slightly shwtssqRHKGCE5843-15-72 09:47:00 Test Item Value Reference Range Interpretation Comments LIPASE (BEAKER) (test code = 749) 72 U/L 6-51 H Fitter Type Bar And Segment ID - qeqq30Vqtctitx slightly ictericIRON, TIBC, % SAT. (WITHOUT FERRITIN)2019-02-17 07:14:00 Test Item Value Reference Range Interpretation Comments IRON (BEAKER) (test code = 547) 15.0 ug/dL 40.0-160.0 L TOTAL IRON BINDING CAPACITY 124 ug/dL 250-450 L (BEAKER) (test code = 769) IRON % SATURATION (2) (BEAKER) 12 % 20-55 L (test code = 2590) Fitter Type Bar And Segment ID - SOTERO MHEMOGLOBIN AND [id number] 06:32:00 Test Item Value Reference Range Interpretation Comments HEMOGLOBIN (BEAKER) (test code = 6.8 GM/DL 13.7-17.5 L 410) HEMATOCRIT (BEAKER) (test code = 22.3 % 40.1-51.0 L 411) Fitter Type Bar And Segment ID - 6000TSH/FREE T4 IF [id number] 05:53:00 Test Item Value Reference Range Interpretation Comments THYROID STIMULATING HORMONE 2.31 uIU/mL 0.35-4.94 (BEAKER) (test code = 772) Fitter Type Bar And Segment ID - SOTERO MVITAMIN B12 AND [id number] 05:53:00 Test Item Value Reference Range Interpretation Comments VITAMIN B12 (BEAKER) (test code = 665 pg/mL 213-816 774) FOLATE (BEAKER) (test code = 362) 12.3 ng/mL >=7.0 Fitter Type Bar And Segment ID - SOTERO MCBC (HEMOGRAM ONLY)2019-02-17 04:42:00 [...] WBC 0-0 (BEAKER) (test code = 413) [id number] 12:25:00 Test Item Value Reference Range Interpretation Comments LIPASE (BEAKER) (test code = 749) 64 U/L 8-78 Fitter Type Bar And Segment ID - THUAN FHEMOGLOBIN AND [id number] 10:31:00 Test Item Value Reference Range Interpretation Comments HEMOGLOBIN (BEAKER) (test code = 7.2 GM/DL 13.7-17.5 L 410) HEMATOCRIT (BEAKER) (test code = 24.0 % 40.1-51.0 L 411) Fitter Type Bar And Segment ID - 6000FL, [id number] 09:17:00Reason for exam:->jaundiceFINAL REPORT A fluoroscopic unit was utilized for a procedure performed in the operating room. No interpretation was requested. Please refer to the operative report regarding findings. Please refer to PACS for patient radiation dose information. Signed: Josef Maurer MDReport Verified Date/Time: 02/16/2019 09:17:37 Reading Location: [address] Body Reading Room CBC (HEMOGRAM ONLY)2019-02-16 [...] (BEAKER) (test code = 413) HEPATIC FUNCTION [id number] 05:15:00 Test Item Value Reference Range Interpretation [...] (test code = 23 U/L 6-55 347) Fitter Type Bar And Segment ID - SOTERO [facility] METABOLIC [id number] 05:14:00 Test Item Value Reference Range Interpretation [...] S NOT APPLICABLE FOR DIALYSIS PATIEN TS. Fitter Type Bar And Segment ID - SOTERO MPT/[id number] 04:41:00 Test Item Value Reference Range Interpretation [...] is 2.5-3.5 for patients wiht mechanical heart valves.PROTHROMBIN TIME/[id number] 04:40:00 Test Item Value Reference Range Interpretation [...] is 2.5-3.5 for patients wiht mechanical heart valves.CYTOLOGY [id number] 17:00:00 Test Item Value Reference Range Interpretation Comments CYTOLOGY RESULT POINTER See Separate Report ([facility]) (test code = 2629) CBC W/PLT COUNT & AUTO [id number] 12:12:00 Test Item Value Reference Range Interpretation [...] 0-1 GRANULOCYTES-RELATIVE PERCENT (BEAKER) (test code = 6874) BASIC METABOLIC [id number] 10:22:00 Test Item Value Reference Range Interpretation [...] S NOT APPLICABLE FOR DIALYSIS PATIEN TS. Fitter Type Bar And Segment ID Binu LAROSE FSpecimen slightly ictericHEPATIC FUNCTION [...] (test code = 29 U/L 6-55 347) Fitter Type Bar And Segment ID Binu CONNERpecimen slightly ictericPT/[id number] 06:54:00 Test Item Value Reference Range Interpretation [...] is 2.5-3.5 for patients wiht mechanical heart valves.PROTHROMBIN TIME/[id number] 06:53:00 Test Item Value Reference Range Interpretation [...] is 2.5-3.5 for patients wiht mechanical heart valves.CBC W/PLT COUNT & AUTO [id number] 11:17:00 Test Item Value Reference Range Interpretation [...] to report due WIDTH (BEAKER) (test to [facility] RBC code = 412) population distribution. [...] CONCENTRATION Adequate (CELLAVISION)(BEAKER) (test code = 3438) Fitter Type Bar And Segment ID - Lorenzo Carr comments: Slide comments:HEPATIC [...] (test code = 40 U/L 6-55 347) Fitter Type Bar And Segment ID - NTPSpecimen slightly ictericBASIC METABOLIC [id number] 10:09:00 Test Item Value Reference Range Interpretation [...] S NOT APPLICABLE FOR DIALYSIS PATIEN TS. Fitter Type Bar And Segment ID - NTPSpecimen slightly ictericPT/[id number] 05:20:00 Test Item Value Reference Range Interpretation [...] is 2.5-3.5 for patients wiht mechanical heart valves.PROTHROMBIN TIME/[id number] 05:19:00 Test Item Value Reference Range Interpretation [...] is 2.5-3.5 for patients wiht mechanical heart valves.WOUND CULTURE + GRAM [id number] 13:08:00 Test Item Value Reference Interpretation Comments Range CULTURE (AimWithAKER) STAPHYLOCOCCUS A 4+ Staphy lococcus (test code [...] (BEAKER) (test code = cocci in pairs 054325) 4+ Skin floraCOMPREHENSIVE METABOLIC [id number] 04:14:00 Test Item Value Reference Range Interpretation [...] TOTAL (test code = ALKP) COMPREHENSIVE METABOLIC [id number] 04:07:00 Test Item Value Reference Range Interpretation [...] Unit/L 50-136 code = ALKP) CBC W/AUTO [id number] 04:05:00 Test Item Value Reference Range Interpretation [...] = NO DIFF/SCN CRITERIA MDIFF) CBC W/AUTO [id number] 18:44:00 Test Item Value Reference Range Interpretation [...] = NO DIFF/SCN CRITERIA MDIFF) BASIC METABOLIC [id number] 07:26:00 Test Item Value Reference Range Interpretation [...] CA) 7.8 MG/DL 8.5-10.1 L CBC W/AUTO [id number] 07:19:00 Test Item Value Reference Range Interpretation [...] DIFF/SCN CRITERIA MDIFF) - CT ABD PELVIS W/[id number] 20:03:00 Name: FAVIOLA [place] [facility] : 1990 Age/S: 28 / M [address] Unit #: [id number] Loc: [place] [address] Phys: Ramona Bahena MD Acct: [id number] Dis Date: Status: ADM IN PHONE #: [phone] Exam Date: 09/21/20181912 FAX #: Reason: hx of pancreatitis, CBD stent, abd pain, melena EXAMS: CPT: [id number] CT ABD PELVIS W/CONT 25799 Dictation location: H37. CT ABDOMEN AND PELVIS WITH IV CONTRAST HISTORY: hx of pancreatitis, CBD stent, abd pain, melena COMPARISON: CT abdomen and pelvis 09/11/18. TECHNIQUE: Axial CT images of the abdomen and pelvis were obtained with coronal and/orsagittal reformatted views. Automated exposure control, iterative reconstruction technique, and/or adjustment of mA and/or kV according to patient's size was utilized for radiation dose reduction. IV CO NTRAST: 100 ml Isovue-300. PO CONTRAST: None. FINDINGS: Partially imaged left pleural effusion, small to moderate with adjacent atelectasis. The heart size is normal. The gallbladder is distended without surrounding inflammatory changes. Diffuse low attenuation is seen throughout the liver suggestiveof steatosis. Spleen and adrenal glands are unremarkable. Again noted is a double-J stent between the stomach and pancreatic tail. There is a small hypodensity along the pancreatic tail measuring up to2 cm, unchanged. There is continued edema and inflammatory changes along the pancreas. A second collection located between the spleen and stomach measuring 2.7 x 2 cm is unchanged. Both kidneys are similar in size, shape and enhancement without evidence of hydronephrosis. Urinary bladder is contractedwithout wall thickening. The prostate is normal in [...] 1 Signed Report (CONTINUED) Name: FAVIOLA [place] [facility] : 1990 Age/S:28 / M [address] Unit #: [id number] Loc: [place] [address] Phys: Ramona Bahena MD Acct: [id number] Dis Date: Status: ADM IN PHONE #: [phone] Exam Date: 09/21/2018 191 FAX #: Reason: hx ofpancreatitis, CBD stent, abd pain, melena EXAMS: CPT: [id number] CT ABD PELVIS W/CONT 60110 (Continued) Interval mild thickening involving the sigmoid colon and rectum with fluid may relate to a colitis, infectious versus inflammatory. The remainder of the exam is stable. 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 There is asecond adjacent small fluid collection which is also unchanged. Left pleural effusion. Hepatic steatosis. at 2002 Reported andsigned by: Shana Hooks M.D. CC: Ramona Bahena MD Technologist:Yvette Lugo, RT(R)(CT) CTDI:DLP: Trnscb Date/Time: 09/21/2018 (2002) t.JOSHR.SP17 Orig Print D/T: S: 09/21/2018 (2005) PAGE 2 Signed ReportUA RFLX MICR CULT IF [id number] 19:45:00 Test Item Value Reference Range Interpretation [...] culture: Suprapubic PainUA RFLX MICR CULT IF [id number] 19:37:00 Test Item Value Reference Range Interpretation [...] CLEAN CATCHIndication for culture: Suprapubic PainLACTIC ACID [id number] 19:14:00 Test Item Value Reference Range Interpretation Comments LACTIC ACID POC (test code = 0.57 MMOL/L 0.90-1.70 L LACTP) BASIC METABOLIC [id number] 18:25:00 Test Item Value Reference Range Interpretation [...] CA) 8.6 MG/DL 8.5-10.1 N HEPATIC FUNCTION [id number] 18:25:00 Test Item Value Reference Range Interpretation [...] 160 Unit/L 50-136 H code = ALKP) [id number] 18:25:00 Test Item Value Reference Range Interpretation Comments LIPASE (test code = LIP) 164 Unit/L 114-286 N BASIC METABOLIC [id number] 18:22:00 Test Item Value Reference Range Interpretation [...] CA) 8.6 MG/DL 8.5-10.1 N HEPATIC FUNCTION [id number] 18:22:00 Test Item Value Reference Range Interpretation [...] TOTAL (test Unit/L 50-136 code = ALKP) [id number] 18:22:00 Test Item Value Reference Range Interpretation Comments LIPASE (test code = LIP) 164 Unit/L 114-286 N PROTHROMBIN [id number] 18:17:00 Test Item Value Reference Range Interpretation Comments PT PATIENT (test code = PTP) 15.7 SECONDS 9.3-12.9 H INTERNATIONAL NORMAL RATIO 1.36 INR Unit 0.8-1.2 H (test code = INR) THROMBOPLASTIN TIME [id number] 18:17:00 Test Item Value Reference Range Interpretation Comments THROMBOPLASTIN TIME PARTIAL 39.7 SECONDS 26-35 H (test code = PTT) CBC W/O [id number] 18:08:00 Test Item Value Reference Range Interpretation [...] 7.0-9.6 H MPV) - CT ABD PELVIS W/[id number] 19:34:00 Name: FAVIOLA [place] : 1990 Age/S: 28 / M [address] Unit #: [id number] Loc: [place] [address] Phys: Pola Brush MD Acct: [id number] Dis Date: Status: REG ER PHONE #: [phone] Exam Date: 09/11/2018 5175 FAX #: Reason: abdominal pain EXAMS: CPT: [id number] CT ABD PELVIS W/CONT 00539 EXAM: CT ABDOMEN AND PELVIS WITH IV [...] effusion and left basilar atelectasis are noted. Hepatobiliary:Liver is diffusely fatty infiltrated. No hepatic mass or enlargement. The gallbladder is normal. No biliary dilation. Pancreas: The pancreas is enlarged and surrounded by mild phlegmonous fluid and inflammatory stranding consistent with pancreatitis, probably subacute. No pancreatic calcifications. Nosignificant pancreatic ductal dilatation. The patient has a double-J stent between the stomach and asmall 2 cm in diameter fluid collection adjacent to pancreatic tail consistent with pseudocyst with c yst-gastrostomy. No other well-defined drainable pseudocysts are identified. Spleen: The spleen is overall normal in size without focal mass. 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 There are numerous collateral vessels in the splenic hilum. No splenic infarcts are seen. Adrenals: Normal. Genitourinary: No solid renal mass, significantcortical thinning, obvious renal stone or hydronephrosis. Ureters are unremarkable. Urinary bladder is unremarkable. The visualized reproductive organs PAGE 1 Signed Report (CONTINUED) Name: FAVIOLA [place] : 1990 Age/S: 28 / M [address] Unit #: [id number] Loc: [place] [address] Phys: Pola Brush MD Acct: [id number] Dis Date: Status: REG ER PHONE #: [phone] Exam Date: 09/11/2018 1845 FAX #: Reason: abdominal pain EXAMS: CPT: [id number] CT ABD PELVIS W/CONT 15492 (Continued) are unremarkable. Gastrointestinal: No bowel obstruction or perienteric inflamma tion. The appendix is normal. Vascular: No aortic [...] and left basilar atelectasis. 5. Fatty liver. ElectronicallySigned by Yvonne Weber MD on 09/11/2018 at 1934 Reported and signed by: Yvonne Weber MD CC: Pola Brush MD Technologist:Cuba Carmona, RT(R)(CT) CTDI: DLP: Trnscb Date/Time: 09/11/2018 (1933) t.SDR.CLW Orig Print D/T: S: 09/11/2018 (1936) PAGE 2 Signed ReportUA RFLX MICR CULT IF [id number] 19:30:00 Test Item Value Reference Range Interpretation [...] for culture: Dysuria/FrequencyUA RFLX MICR CULT IF [id number] 19:30:00 Test Item Value Reference Range Interpretation [...] URINE: CLEAN CATCHIndication for culture: Dysuria/FrequencyBASIC METABOLIC [id number] 18:14:00 Test Item Value Reference Range Interpretation [...] CA) 8.4 MG/DL 8.5-10.1 L HEPATIC FUNCTION [id number] 18:14:00 Test Item Value Reference Range Interpretation [...] 168 Unit/L 50-136 H code = ALKP) [id number] 18:14:00 Test Item Value Reference Range Interpretation Comments LIPASE (test code = LIP) 260 Unit/L 114-286 N BASIC METABOLIC [id number] 18:06:00 Test Item Value Reference Range Interpretation [...] CA) 8.4 MG/DL 8.5-10.1 L HEPATIC FUNCTION [id number] 18:06:00 Test Item Value Reference Range Interpretation [...] TOTAL (test code Unit/L 50-136 = ALKP) [id number] 18:06:00 Test Item Value Reference Range Interpretation Comments LIPASE (test code = LIP) Unit/L 114-286 CBC W/AUTO [id number] 18:02:00 Test Item Value Reference Range Interpretation [...] code = NO DIFF/SCN CRITERIA MDIFF) PROTHROMBIN [id number] 18:02:00 Test Item Value Reference Range Interpretation Comments PT PATIENT (test code = PTP) 16.2 SECONDS 9.3-12.9 H INTERNATIONAL NORMAL RATIO 1.40 INR Unit 0.8-1.2 H (test code = INR) THROMBOPLASTIN TIME [id number] 18:02:00 Test Item Value Reference Range Interpretation Comments THROMBOPLASTIN TIME PARTIAL 30.7 SECONDS 26-35 N (test code = PTT) BLOOD [id number] 02:01:00 Test Item Value Reference Range Interpretation Comments CULTURE (BEAKER) (test No growth in 5 days code = 1095) BLOOD [id number] 20:01:00 Test Item Value Reference Range Interpretation Comments CULTURE (BEAKER) (test No growth in 5 days code = 1095) CBC W/PLT COUNT & AUTO [id number] 05:36:00 Test Item Value Reference Range Interpretation [...] PERCENT (BEAKER) (test code = 2801) TISSUE [id number] 15:04:00Surgical Pathology Report Case: [id number] Authorizing Provider: Maliha Gotti MD Collected: 08/29/2018 0932 Ordering Location: [place] [address] ICU Received: 08/29/2018 1318 Pathologist: James Stringer MD Specimen: Polyp, Colon - Transverse, taken by yahaira MCNEAL A TRANSVERSE COLON BIOPSY FOR SUSPECTED POLYP:INFLAMMATORY PSEUDOPOLYP. Signing Pathologist Direct Phone Line: [phone] signed by James Stringer MD on 08/30/2018 at 3:04 PMImmunostains for CMV, HSV1, and HSV2 performed on block A1 are negative.99006, 00370, 51905S8Yfm and postop diagnosis: gastrointestinal hemorrhage, unspecified gastrointestinal hemorrhage type Polyp, colon - transverse Received in formalin labeled with the patient's name, accession number and "polyp, colon - transverse" is a 0.2 cm york soft tissue fragment which is submitted in toto in A1. CG/pl PERFORMED. The interpretationof this case included the use of immunohistochemistry or special stains.BLOCK A1- CMV, HSV1, VIU2Zvpfmbs Slides Examined: In-house known positive controls were evaluated along with the test tissue. These control slides run alongside of the patients sample show appropriate staining. Internal positive an d negative controls when available are evaluated Immunohistochemistry technical testing was performed at [facility], Pathology Laboratory where it was developed and its performance characteristics were determined. It has not been cleared or approved by the U.S. Food and Drug Administration. The FDA has determined that such clearance or approval is not necessary. The test is usedfor clinical purposes. It should not be regarded as investigational or for research. This laboratoryis certified under the Clinical Laboratory Improvement Amendments of 1988 (CLIA-88) as qualified to perform high complexity clinical laboratory testing.HEMOGLOBIN AND [id number] 12:44:00 Test Item Value Reference Range Interpretation Comments HEMOGLOBIN (BEAKER) (test code = 7.7 GM/DL 13.7-17.5 L 410) HEMATOCRIT (BEAKER) (test code = 25.1 % 40.1-51.0 L 411) BASIC METABOLIC [id number] 07:28:00 Test Item Value Reference Range Interpretation [...] S NOT APPLICABLE FOR DIALYSIS PATIEN TS. [id number] 07:13:00 Test Item Value Reference Range Interpretation Comments PHOSPHORUS (BEAKER) (test code = 3.7 mg/dL 2.3-4.7 604) [id number] 07:13:00 Test Item Value Reference Range Interpretation Comments MAGNESIUM (BEAKER) (test code = 2.0 mg/dL 1.6-2.6 627) HEPATIC FUNCTION [id number] 07:13:00 Test Item Value Reference Range Interpretation [...] 6-55 347) CBC W/PLT COUNT & AUTO [id number] 05:45:00 Test Item Value Reference Range Interpretation [...] 0-1 PERCENT (BEAKER) (test code = 2801) [id number] 06:28:00 Test Item Value Reference Range Interpretation Comments PHOSPHORUS (BEAKER) (test code = 4.0 mg/dL 2.3-4.7 604) [id number] 06:28:00 Test Item Value Reference Range Interpretation Comments MAGNESIUM (BEAKER) (test code = 1.9 mg/dL 1.6-2.6 627) HEPATIC FUNCTION [id number] 06:28:00 Test Item Value Reference Range Interpretation [...] = 7 U/L 6-55 347) BASIC METABOLIC [id number] 06:28:00 Test Item Value Reference Range Interpretation [...] PATIEN TS. CBC W/PLT COUNT & AUTO [id number] 05:15:00 Test Item Value Reference Range Interpretation [...] (BEAKER) (test code = 2801) HEMOGLOBIN AND [id number] 16:50:00 Test Item Value Reference Range Interpretation Comments HEMOGLOBIN (BEAKER) (test code = 7.8 GM/DL 13.7-17.5 L 410) HEMATOCRIT (BEAKER) (test code = 24.5 % 40.1-51.0 L 411) TROPONIN [id number] 07:07:00 Test Item Value Reference Range Interpretation [...] failure, acidosis, acute neurological disease, and persistent tachyarrhythmia.[id number] 07:04:00 Test Item Value Reference Range Interpretation Comments PHOSPHORUS (BEAKER) (test code = 3.0 mg/dL 2.3-4.7 604) [id number] 07:04:00 Test Item Value Reference Range Interpretation Comments MAGNESIUM (BEAKER) (test code = 1.7 mg/dL 1.6-2.6 627) BASIC METABOLIC [id number] 07:04:00 Test Item Value Reference Range Interpretation [...] APPLICABLE FOR DIALYSIS PATIEN TS. LACTIC ACID, [id number] 06:58:00 Test Item Value Reference Range Interpretation Comments LACTATE BLOOD VENOUS (2) (BEAKER) 0.7 mmol/L 0.5-2.2 (test code = 2872) HEMOGLOBIN AND [id number] 06:44:00 Test Item Value Reference Range Interpretation Comments HEMOGLOBIN (BEAKER) (test code = 8.2 GM/DL 13.7-17.5 L 410) HEMATOCRIT (BEAKER) (test code = 25.9 % 40.1-51.0 L 411) CBC W/PLT COUNT & AUTO [id number] 06:44:00 Test Item Value Reference Range Interpretation [...] PERCENT (BEAKER) (test code = 2801) TROPONIN [id number] 00:41:00 Test Item Value Reference Range Interpretation [...] acute neurological disease, and persistent tachyarrhythmia.HEMOGLOBIN AND [id number] 00:22:00 Test Item Value Reference Range Interpretation Comments HEMOGLOBIN (BEAKER) (test code = 5.9 GM/DL 13.7-17.5 LL 410) HEMATOCRIT (BEAKER) (test code = 18.8 % 40.1-51.0 L 411) RAD, CHEST, 1 VIEW, NON [id number] 21:37:00Reason for exam:->r/o pulm edemaShould this be [...] MDReport Verified Date/Time: 08/27/2018 21:37:05 Reading Location: [address] Consult Reading Room ALYSIS W/ REFLEX URINE [id number] 20:28:00 Test Item Value Reference Range Interpretation [...] Rare SOURCE(BEAKER) (test code = 2795) TROPONIN [id number] 19:29:00 Test Item Value Reference Range Interpretation [...] acute neurological disease, and persistent tachyarrhythmia.COMPREHENSIVE METABOLIC [id number] 19:21:00 Test Item Value Reference Range Interpretation [...] S NOT APPLICABLE FOR DIALYSIS PATIEN TS. [id number] 19:09:00 Test Item Value Reference Range Interpretation Comments PHOSPHORUS (BEAKER) (test code = 3.6 mg/dL 2.3-4.7 604) [id number] 19:09:00 Test Item Value Reference Range Interpretation Comments MAGNESIUM (BEAKER) (test code = 1.8 mg/dL 1.6-2.6 627) LACTIC ACID, [id number] 19:03:00 Test Item Value Reference Range Interpretation Comments LACTATE BLOOD VENOUS (2) (BEAKER) 0.9 mmol/L 0.5-2.2 (test code = 2872) PROTHROMBIN TIME/[id number] 18:53:00 Test Item Value Reference Range Interpretation [...] is 2.5-3.5 for patients wiht mechanical heart valves.[id number] 18:53:00 Test Item Value Reference Range Interpretation Comments FIBRINOGEN LEVEL (BEAKER) (test 418 mg/dl 225-434 code = 658) CBC W/PLT COUNT & AUTO [id number] 18:48:00 Test Item Value Reference Range Interpretation [...] (BEAKER) (test code = 2801) HEMOGLOBIN AND [id number] 18:44:00 Test Item Value Reference Range Interpretation Comments HEMOGLOBIN (BEAKER) (test code = 6.3 GM/DL 13.7-17.5 L 410) HEMATOCRIT (BEAKER) (test code = 20.6 % 40.1-51.0 L 411) CBC W/PLT COUNT & AUTO [id number] 07:00:00 Test Item Value Reference Range Interpretation [...] PERCENT (BEAKER) (test code = 2801) CALCIUM, [id number] 06:20:00 Test Item Value Reference Range Interpretation Comments CALCIUM IONIZED (BEAKER) (test 1.01 mmol/L 1.12-1.27 L code = 698) PH, BLOOD (BEAKER) (test code = 7.50 1810) COMPREHENSIVE METABOLIC [id number] 06:16:00 Test Item Value Reference Range Interpretation [...] NOT APPLICABLE FOR DIALYSIS PATIEN TS. BLOOD [id number] 20:01:00 Test Item Value Reference Range Interpretation Comments CULTURE (BEAKER) (test No growth in 5 days code = 1095) [id number] 06:17:00 Test Item Value Reference Range Interpretation Comments PHOSPHORUS (BEAKER) (test code = 3.5 mg/dL 2.3-4.7 604) [id number] 06:17:00 Test Item Value Reference Range Interpretation Comments MAGNESIUM (BEAKER) (test code = 1.3 mg/dL 1.6-2.6 L 627) BASIC METABOLIC [id number] 06:17:00 Test Item Value Reference Range Interpretation [...] NOT APPLICABLE FOR DIALYSIS PATIEN TS. CALCIUM, [id number] 05:40:00 Test Item Value Reference Range Interpretation Comments CALCIUM IONIZED (BEAKER) (test 1.02 mmol/L 1.12-1.27 L code = 698) PH, BLOOD (BEAKER) (test code = 7.50 1810) CBC W/PLT COUNT & AUTO [id number] 05:32:00 Test Item Value Reference Range Interpretation [...] (BEAKER) (test code = 2801) COMPREHENSIVE METABOLIC [id number] 07:10:00 Test Item Value Reference Range Interpretation [...] S NOT APPLICABLE FOR DIALYSIS PATIEN TS. [id number] 06:50:00 Test Item Value Reference Range Interpretation Comments MAGNESIUM (BEAKER) (test code = 1.0 mg/dL 1.6-2.6 LL 627) COMPREHENSIVE METABOLIC [id number] 06:33:00 Test Item Value Reference Range Interpretation [...] S NOT APPLICABLE FOR DIALYSIS PATIANAYA TS. [id number] 06:31:00 Test Item Value Reference Range Interpretation Comments PHOSPHORUS (BEAKER) (test code = 3.3 mg/dL 2.3-4.7 604) CBC W/PLT COUNT & AUTO [id number] 06:23:00 Test Item Value Reference Range Interpretation [...] (BEAKER) (test code = 2801) LACTIC ACID, [id number] 06:22:00 Test Item Value Reference Range Interpretation Comments LACTATE BLOOD VENOUS (2) (BEAKER) 0.8 mmol/L 0.5-2.2 (test code = 2872) CALCIUM, [id number] 06:18:00 Test Item Value Reference Range Interpretation Comments CALCIUM IONIZED (BEAKER) (test 1.01 mmol/L 1.12-1.27 L code = 698) PH, BLOOD (BEAKER) (test code = 7.46 1810) U/S, ABDOMINAL, [id number] 16:51:00Abdomen limited area? Add comment if clarification [...] MDReport Verified Date/Time: 07/28/2018 16:51:39 Reading Location: [place] [id number] 13 Ortho Consult Reading Room [id number] 06:56:00 Test Item Value Reference Range Interpretation Comments PHOSPHORUS (BEAKER) (test code = 2.6 mg/dL 2.3-4.7 604) [id number] 06:56:00 Test Item Value Reference Range Interpretation Comments MAGNESIUM (BEAKER) (test code = 1.5 mg/dL 1.6-2.6 L 627) BASIC METABOLIC [id number] 06:56:00 Test Item Value Reference Range Interpretation [...] APPLICABLE FOR DIALYSIS PATIEN TS. LACTIC ACID, [id number] 06:49:00 Test Item Value Reference Range Interpretation Comments LACTATE BLOOD VENOUS (2) (BEAKER) 0.7 mmol/L 0.5-2.2 (test code = 2872) CBC W/PLT COUNT & AUTO [id number] 06:31:00 Test Item Value Reference Range Interpretation [...] 0-1 PERCENT (BEAKER) (test code = 2801) [id number] 17:59:00 Test Item Value Reference Range Interpretation Comments PHOSPHORUS (BEAKER) (test code = 3.4 mg/dL 2.3-4.7 604) Check Serum Phosphorus level 4 hours after IV phosphorus replacement or 8 hours after PO replacementcompleted.[id number] 17:59:00 Test Item Value Reference Range Interpretation Comments MAGNESIUM (BEAKER) (test code = 1.7 mg/dL 1.6-2.6 627) Check Serum Phosphorus level 4 hours after IV phosphorus replacement or 8 hours after PO replacementcompleted.[id number] 04:50:00 Test Item Value Reference Range Interpretation Comments PHOSPHORUS (BEAKER) (test code = 1.8 mg/dL 2.3-4.7 L 604) [id number] 04:50:00 Test Item Value Reference Range Interpretation Comments MAGNESIUM (BEAKER) (test code = 1.4 mg/dL 1.6-2.6 L 627) BASIC METABOLIC [id number] 04:50:00 Test Item Value Reference Range Interpretation [...] PATIEN TS. CBC W/PLT COUNT & AUTO [id number] 04:45:00 Test Item Value Reference Range Interpretation [...] 0-1 PERCENT (BEAKER) (test code = 2801) TN, [id number] 22:28:00Reason for exam:->bile duct stent removalFINAL REPORT Examination: ERCP 4 fluoroscopic spot views were obtained during the procedure by the ordering service. Images are nondiagnostic as no radiologist was present at the time of imaging. Fluoroscopic time was 49.6 seconds. Please see the procedure report for details. Signed: Rosalia Golden Verified Date/Time: 07/26/2018 22:28:43 Reading Location: [address] Reading Room POCT-GLUCOSE [id number] 20:43:00 Test Item Value Reference Range Interpretation Comments POC-GLUCOSE METER 146 mg/dL 70-110 H TESTED AT [facility] 6720 (BEAKER) (test code = CHANTE Mohamud [facility] 1538) [address] RAPID STREP A [id number] 18:22:00 Test Item Value Reference Range Interpretation Comments STREP A ANTIGEN (BEAKER) (test code Negative = 556) COMPREHENSIVE METABOLIC [id number] 17:37:00 Test Item Value Reference Range Interpretation [...] PATIEN TS. CBC W/PLT COUNT & AUTO [id number] 17:16:00 Test Item Value Reference Range Interpretation [...] PERCENT (BEAKER) (test code = 2801) POCT-GLUCOSE [id number] 12:06:00 Test Item Value Reference Range Interpretation Comments POC-GLUCOSE METER 132 mg/dL 70-110 H TESTED AT [facility] 67 ([facility]) (test code = [place] 1538) [address] POCT-GLUCOSE [id number] 08:57:00 Test Item Value Reference Range Interpretation Comments POC-GLUCOSE METER 80 mg/dL 70-110 TESTED AT [facility] 6720 ([facility]) (test code = CHANTE Mohamud [facility] [address] 1538) BASIC METABOLIC [id number] 06:35:00 Test Item Value Reference Range Interpretation [...] NOT APPLICABLE FOR DIALYSIS PATIEN TS. POCT-GLUCOSE [id number] 22:36:00 Test Item Value Reference Range Interpretation Comments POC-GLUCOSE METER 72 mg/dL 70-110 TESTED AT [facility] 6720 (BEAKER) (test code = [facility] [address] 1538) POCT-GLUCOSE [id number] 12:21:00 Test Item Value Reference Range Interpretation Comments POC-GLUCOSE METER 82 mg/dL 70-110 TESTED AT [facility] 6720 (BEAKER) (test code = [facility] [address] 1538) BASIC METABOLIC [id number] 09:30:00 Test Item Value Reference Range Interpretation [...] 70-105 (BEAKER) (test code = 652) [facility] 8.2 mg/dL 8.4-10.2 L (test code = 697) EGFR ([facility]) (test 156 mL/min/1.73 ESTIM ATED GFR IS code = 1092) sq m NOT ACCURATE CREATININE CLEARANCE IN PREDICTING GLOMERULAR FILTRATION RATE . ESTIMATED GFR I S NOT APPLICABLE FOR DIALYSIS PATIEN TS. POCT-GLUCOSE [id number] 08:42:00 Test Item Value Reference Range Interpretation Comments POC-GLUCOSE METER 85 mg/dL 70-110 TESTED AT [place] [address] ([facility]) (test code = [facility] [address] 1538) POCT-GLUCOSE [id number] 21:33:00 Test Item Value Reference Range Interpretation Comments POC-GLUCOSE METER 106 mg/dL 70-110 TESTED AT [place] [address] ([facility]) (test code = [facility] 1538) [address] POCT-GLUCOSE [id number] 17:42:00 Test Item Value Reference Range Interpretation Comments POC-GLUCOSE METER 95 mg/dL 70-110 TESTED AT [place] [address] ([facility]) (test code = [facility] [address] 1538) [id number] 14:42:00 Test Item Value Reference Range Interpretation Comments POTASSIUM ([facility]) 3.7 meq/L 3.5-5.1 Specimen slightly (test code = 379) hemolyzed Check Serum Potassium level 2 hours after oral potassium replacement completed or 30 min after intravenous potassium replacement.POCT-GLUCOSE [id number] 11:45:00 Test Item Value Reference Range Interpretation Comments POC-GLUCOSE METER 151 mg/dL 70-110 H TESTED AT [place] [address] ([facility]) (test code = [facility] 1538) [address] POCT-GLUCOSE [id number] 09:45:00 Test Item Value Reference Range Interpretation Comments POC-GLUCOSE METER 127 mg/dL 70-110 H TESTED AT [place] [address] ([facility]) (test code = [facility] 1538) [address] BLOOD [id number] 08:00:00 Test Item Value Reference Range Interpretation Comments CULTURE ([facility]) (test No growth in 5 days code = 1095) BLOOD [id number] 08:00:00 Test Item Value Reference Range Interpretation Comments CULTURE (BEAKER) (test No growth in 5 days code = 1095) BASIC METABOLIC [id number] 06:48:00 Test Item Value Reference Range Interpretation [...] S NOT APPLICABLE FOR DIALYSIS PATIEN TS. [id number] 06:46:00 Test Item Value Reference Range Interpretation Comments PHOSPHORUS (BEAKER) (test code = 3.5 mg/dL 2.3-4.7 604) [id number] 06:46:00 Test Item Value Reference Range Interpretation Comments MAGNESIUM (BEAKER) (test code = 1.7 mg/dL 1.6-2.6 627) CALCIUM, [id number] 06:45:00 Test Item Value Reference Range Interpretation Comments CALCIUM IONIZED (BEAKER) (test 1.00 mmol/L 1.12-1.27 L code = 698) PH, BLOOD (BEAKER) (test code = 7.52 1810) POCT-GLUCOSE [id number] 21:56:00 Test Item Value Reference Range Interpretation Comments POC-GLUCOSE METER 112 mg/dL 70-110 H TESTED AT [facility] 6720 (BEAKER) (test code = [place] 1538) [address] POCT-GLUCOSE [id number] 17:46:00 Test Item Value Reference Range Interpretation Comments POC-GLUCOSE METER 86 mg/dL 70-110 TESTED AT [facility] 6720 (BEAKER) (test code = [facility] [address] 1538) POCT-GLUCOSE [id number] 11:20:00 Test Item Value Reference Range Interpretation Comments POC-GLUCOSE METER 164 mg/dL 70-110 H TESTED AT [facility] 6720 (BEAKER) (test code = [facility] 1538) [address] POCT-GLUCOSE [id number] 08:57:00 Test Item Value Reference Range Interpretation Comments POC-GLUCOSE METER 88 mg/dL 70-110 TESTED AT [place] [address] (BEAKER) (test code = [facility] [address] 1538) CALCIUM, [id number] 05:14:00 Test Item Value Reference Range Interpretation Comments CALCIUM IONIZED (BEAKER) (test 1.12 mmol/L 1.12-1.27 code = 698) PH, BLOOD (BEAKER) (test code = 7.43 1810) BASIC METABOLIC [id number] 04:59:00 Test Item Value Reference Range Interpretation [...] S NOT APPLICABLE FOR DIALYSIS PATIEN TS. [id number] 04:57:00 Test Item Value Reference Range Interpretation Comments MAGNESIUM (BEAKER) (test code = 1.8 mg/dL 1.6-2.6 627) [id number] 04:56:00 Test Item Value Reference Range Interpretation Comments PHOSPHORUS (BEAKER) (test code = 3.4 mg/dL 2.3-4.7 604) [id number] 04:54:00 Test Item Value Reference Range Interpretation [...] is 2.5-3.5 for patients wiht mechanical heart valves.PROTHROMBIN [id number] 04:52:00 Test Item Value Reference Range Interpretation [...] is 2.5-3.5 for patients wiht mechanical heart valves.CBC W/PLT COUNT & AUTO [id number] 04:47:00 Test Item Value Reference Range Interpretation [...] PERCENT (BEAKER) (test code = 2801) POCT-GLUCOSE [id number] 22:08:00 Test Item Value Reference Range Interpretation Comments POC-GLUCOSE METER 133 mg/dL 70-110 H TESTED AT [facility] 6720 (BEAKER) (test code = [place] 1538) [address] POCT-GLUCOSE [id number] 18:34:00 Test Item Value Reference Range Interpretation Comments POC-GLUCOSE METER 151 mg/dL 70-110 H TESTED AT [place] [address] ([facility]) (test code = [place] 1538) [address] POCT-GLUCOSE [id number] 12:29:00 Test Item Value Reference Range Interpretation Comments POC-GLUCOSE METER 124 mg/dL 70-110 H TESTED AT [place] [address] ([facility]) (test code = CHANTE Mohamud [facility] 1538) [address] RAD, CHEST, 1 VIEW, NON [id number] 10:57:00Reason for exam:->SOBShould this be performed at [...] Noel MDReport Verified Date/Time: 07/15/2018 10:57:23 Reading Location:[facility] Radiology Reading Room C. DIFFICILE GDH [id number] 10:08:00 Test Item Value Reference Range Interpretation Comments CDT TOXIN (test code Negative Negative = [id number]) CDT GDH ANTIGEN (test Negative Negative No ind ication of code = [id number]) Clostridi um difficile infection and n o colonization. Discontinue ent sonal isolation and t herapy. Testing performed by [employer] Rapid Cassette Assay. For GDH, published sensitivity of the assay is 98.7% compared to cytotoxicity testing. For Toxin AB, published sensitivity is 87.8% and specificity 99.4% compared to cytotoxicity testing.Verification of kit performance was done by the [facility] prior to clinical use.POCT-GLUCOSE [id number] 08:57:00 Test Item Value Reference Range Interpretation Comments POC-GLUCOSE METER 159 mg/dL 70-110 H TESTED AT [place] [address] (BEAKER) (test code = [place] 1538) [address] BLOOD [id number] 08:01:00 Test Item Value Reference Range Interpretation Comments CULTURE (BEAKER) (test No growth in 5 days code = 1095) BLOOD [id number] 08:01:00 Test Item Value Reference Range Interpretation Comments CULTURE (BEAKER) (test No growth in 5 days code = 1095) BASIC METABOLIC [id number] 04:49:00 Test Item Value Reference Range Interpretation [...] S NOT APPLICABLE FOR DIALYSIS PATIEN TS. [id number] 04:29:00 Test Item Value Reference Range Interpretation Comments PHOSPHORUS (BEAKER) (test code = 2.7 mg/dL 2.3-4.7 604) [id number] 04:29:00 Test Item Value Reference Range Interpretation Comments MAGNESIUM (BEAKER) (test code = 2.2 mg/dL 1.6-2.6 627) CBC W/PLT COUNT & AUTO [id number] 04:14:00 Test Item Value Reference Range Interpretation [...] PERCENT (BEAKER) (test code = 2801) CALCIUM, [id number] 03:58:00 Test Item Value Reference Range Interpretation Comments CALCIUM IONIZED (BEAKER) (test 1.11 mmol/L 1.12-1.27 L code = 698) PH, BLOOD (BEAKER) (test code = 7.41 1810) POCT-GLUCOSE [id number] 23:20:00 Test Item Value Reference Range Interpretation Comments POC-GLUCOSE METER 208 mg/dL 70-110 H TESTED AT [facility] 6720 (BEAKER) (test code = [place] 1538) [address] BASIC METABOLIC [id number] 18:01:00 Test Item Value Reference Range Interpretation [...] S NOT APPLICABLE FOR DIALYSIS PATIEN TS. [id number] 18:00:00 Test Item Value Reference Range Interpretation Comments TRIGLYCERIDES (BEAKER) (test code = 125 mg/dL 540) TRIGLYCERIDE REFERENCE RANGELow Risk <150Borderline Risk 150-199High Risk 200-499Very High Risk >=[id number] 18:00:00 Test Item Value Reference Range Interpretation Comments MAGNESIUM (BEAKER) (test code = 1.6 mg/dL 1.6-2.6 627) CALCIUM, [id number] 17:46:00 Test Item Value Reference Range Interpretation Comments CALCIUM IONIZED (BEAKER) (test 1.13 mmol/L 1.12-1.27 code = 698) PH, BLOOD (BEAKER) (test code = 7.41 1810) POCT-GLUCOSE [id number] 17:45:00 Test Item Value Reference Range Interpretation Comments POC-GLUCOSE METER 173 mg/dL 70-110 H TESTED AT [facility] 6720 (BEAKER) (test code = CHANTE Mohamud [place] 1538) [address] POCT-GLUCOSE [id number] 11:46:00 Test Item Value Reference Range Interpretation Comments POC-GLUCOSE METER 163 mg/dL 70-110 H TESTED AT [facility] 6720 (BEAKER) (test code = CHANTE Mohamud [place] 1538) [address] BASIC METABOLIC [id number] 09:43:00 Test Item Value Reference Range Interpretation [...] APPLICABLE FOR DIALYSIS PATIEN TS. HEPATIC FUNCTION [id number] 09:43:00 Test Item Value Reference Range Interpretation [...] = < U/L 6-55 L 347) CALCIUM, [id number] 09:39:00 Test Item Value Reference Range Interpretation Comments CALCIUM IONIZED (BEAKER) (test 1.07 mmol/L 1.12-1.27 L code = 698) PH, BLOOD (BEAKER) (test code = 7.44 1810) [id number] 09:26:00 Test Item Value Reference Range Interpretation Comments PHOSPHORUS (BEAKER) (test code = 2.3 mg/dL 2.3-4.7 604) [id number] 09:26:00 Test Item Value Reference Range Interpretation Comments MAGNESIUM (BEAKER) (test code = 1.2 mg/dL 1.6-2.6 L 627) CBC W/PLT COUNT & AUTO [id number] 09:07:00 Test Item Value Reference Range Interpretation [...] PERCENT (BEAKER) (test code = 2801) POCT-GLUCOSE [id number] 06:10:00 Test Item Value Reference Range Interpretation Comments POC-GLUCOSE METER 170 mg/dL 70-110 H TESTED AT [facility] 6720 ([facility]) (test code = CHANTE Mohamud [facility] 1538) [address] POCT-GLUCOSE [id number] 23:12:00 Test Item Value Reference Range Interpretation Comments POC-GLUCOSE METER 200 mg/dL 70-110 H TESTED AT [facility] 6720 ([facility]) (test code = [facility] 1538) [address] POCT-GLUCOSE [id number] 18:28:00 Test Item Value Reference Range Interpretation Comments POC-GLUCOSE METER 153 mg/dL 70-110 H TESTED AT [place] [address] ([facility]) (test code = [facility] 1538) [address] RAD, CHEST, 1 VIEW, NON [id number] 17:19:00Reason for exam:->post central lineShould this be [...] the tip projecting over the right atrium with no pneumothorax. Signed: Perez Huerta MDReport Verified Date/Time: 07/13/2018 17:19:17 Reading Location: [facility] [id number] Ortho Consult Reading Room POCT-GLUCOSE [id number] 11:45:00 Test Item Value Reference Range Interpretation Comments POC-GLUCOSE METER 214 mg/dL 70-110 H TESTED AT [place] [address] ([facility]) (test code = [place] 1538) [address] CT, [id number] 09:34:00NO PO or IV contrastFINAL REPORT CT scan of the abdomen and pelvis. MEDICAL HISTORY: Peripancreaticfluid collection, status post gastrocystostomy. Worsening abdominal pain. [...] size and/or use of iterative reconstruction technique. FINDINGS:A trace right-sided and small left-sided pleural effusion is seen with extensive atelectasis or consolidation in the left lung base, similar to previous. The abdomen and pelvis are limited by lack of co ntrast. The liver is fatty in attenuation with [...] aorta is normal in caliber. There is nosuspicious adenopathy. Bone windows demonstrate no focal abnormal on the. IMPRESSION:1. Trace right-s ided and small left-sided pleural effusion with adjacent atelectasis or consolidation, particularly in the left lower lobe which appears atelectatic. This is similar to previous.2. Fatty liver.3. Interval insertion of cystogastrostomy. Residual pigtail catheter in place with no residual fluid adjacentto the stomach or in the lesser sac. A small amount of fluid is seen adjacent to the pancreatic tailtracking along the left anterior pararenal space, decreased from previous.4. Stent in the CBD.5. Splenomegaly.6. Minimal free fluid.7. Mildly dilated, featureless fluid-filled small bowel loops which could be related to an enteritis. Signed: Perez Huerta MDReport Verified Date/Time: 07/13/2018 09:34:48 Reading Location: [address] Ortho Consult Reading Room POCT- GLUCOSE [id number] 06:40:00 Test Item Value Reference Range Interpretation Comments POC-GLUCOSE METER 189 mg/dL 70-110 H TESTED AT [place] [address] ([facility]) (test code = CHANTE Mohamud [place] [id number]) [address] RAD, CHEST, 1 VIEW, NON [id number] 01:21:00Reason for exam:->hypoxia, feverShould this be performed at the bedside?->YesFINAL REPORT Chest one view. Clinical history: hypoxia, fever Comparison: Chest radiograph 06/11/2018 Technique: A single frontal view of the chest was obtained. Findings/impression:The cardiomediastinal contours are stable. There are low lung volumes. There is a small to moderate loculated left pleural effusion with associated atelectasis and/or pneumonia. There is no pneumothorax. There is a left upper quadrant pigtail catheter. Signed: Meghan Atkinsort Verified Date/Time: 07/13/2018 01:21:43 Reading Location: [address] Reading Room , CHEST, 1 VIEW, NON [id number] 00:42:00Reason for exam:- >tachycardiaShould this be performed at the bedside?->YesFINAL REPORT RAD, CHEST, 1 VIEW, NON DEPT INDICATION: tachycardia COMPARISON: Prior day's exam FINDINGS: Portable frontal view of the chest. IMPRESSION: Lungs and pleura: Unchangedretrocardiac airspace opacity and layering small left pleural effusion when allowing for differencesin technique.. No pneumothorax.Heart and mediastinum: Stable contours. Additional findings: Pigtail catheter overlies the left upper quadrant. Signed: Lu Darden Verified Date/Time: 07/13/2018 00:42:23 POCT-GLUCOSE [id number] 23:31:00 Test Item Value Reference Range Interpretation Comments POC-GLUCOSE METER 139 mg/dL 70-110 H TESTED AT [place] [address] ([facility]) (test code = CHANTE Mohamud [facility] 1538) [address] POCT-GLUCOSE [id number] 18:37:00 Test Item Value Reference Range Interpretation Comments POC-GLUCOSE METER 108 mg/dL 70-110 TESTED AT [place] [address] ([facility]) (test code = CHANTE Mohamud [facility] 1538) [address] LACTIC ACID, [id number] 17:04:00 Test Item Value Reference Range Interpretation Comments LACTATE BLOOD VENOUS (2) ([facility]) 0.7 mmol/L 0.5-2.2 (test code = 2872) POCT-GLUCOSE [id number] 13:25:00 Test Item Value Reference Range Interpretation Comments POC-GLUCOSE METER 129 mg/dL 70-110 H TESTED AT [place] [address] ([facility]) (test code = CHANTE Mohamud [facility] 1538) [address] POCT-GLUCOSE [id number] 10:27:00 Test Item Value Reference Range Interpretation Comments POC-GLUCOSE METER 109 mg/dL 70-110 TESTED AT [place] [address] ([facility]) (test code = [place] 1538) [address] LACTIC ACID, [id number] 07:03:00 Test Item Value Reference Range Interpretation Comments LACTATE BLOOD VENOUS 0.9 mmol/L 0.5-2.2 Specime n slightly (2) [facility] (test hemolyzed code = 2872) RAD, ABDOMEN/KUB, 1 VIEW [id number] 02:12:00Reason for exam:->UPRIGHT assess for perf; abdomoinal [...] clinical setting. Small left pleural effusion. Signed: [facility] Verified Date/Time: 07/12/2018 02:12:57 POCT-LACTIC ACID, [id number] 02:11:00 Test Item Value Reference Range Interpretation Comments POC-LACTIC ACID, 1.5 mmol/L 0.9-1.7 TESTED AT [facility] 6720 VENOUS ([facility]) (test [place] code = 2805) [address] [id number] 02:11:00 Test Item Value Reference Range Interpretation Comments POC-GLUCOSE ([facility]) 106 mg/dL 70-110 TESTED AT [facility] 67 (test code = 1855) [place] [address] POCT-CALCIUM [id number] 02:11:00 Test Item Value Reference Range Interpretation Comments POC-CALCIUM IONIZED 1.15 mmol/L 1.12-1.27 TESTED A T [place] [address] (BEAKER) (test code = CHANTE [place]amud [place] 1536) [address] [id number] 02:11:00 Test Item Value Reference Range Interpretation Comments POC-HEMATOCRIT 37 % 40-50 L TESTED AT [place] [address] (BEAKER) (test code = [place] [address] 1857) [id number] 02:11:00 Test Item Value Reference Range Interpretation Comments POC-HEMOGLOBIN 12.6 g/dL 13.0-16.8 L TESTED AT [place] [address] (BEAKER) ([facility] = 1856) [address]IOGHND AT [place] [address] KAREN MANZ[place] [address] POCT-BLOOD GASES, [id number] 02:10:00 Test Item Value Reference Range Interpretation Comments TEMP, CELSIUS-POC 38.4 (BEAKER) (test code = 1834) FIO2-POC (BEAKER) 21 TESTED AT [place] [address] (test code = 1835) [place] [address] PH, VENOUS-POC 7.362 7.320-7.420 (BEAKER) (test code [...] -2.0-3.0 VENOUS-POC (BEAKER) (test code = 1847) [id number] 02:10:00 Test Item Value Reference Range Interpretation Comments POC-SODIUM (BEAKER) 139 meq/L 135-148 TESTED A T [place] [address] (test code = 1542) [place] [address] [id number] 02:10:00 Test Item Value Reference Range Interpretation Comments POC-POTASSIUM 3.7 meq/L 3.6-5.5 TESTED AT [facility] C 6720 (BEAKER) ([place] [address] = 1540) HEPATIC FUNCTION [id number] 02:04:00 Test Item Value Reference Range Interpretation [...] = 8 U/L 6-55 347) BASIC METABOLIC [id number] 02:04:00 Test Item Value Reference Range Interpretation [...] PATIEN TS. CBC W/PLT COUNT & AUTO [id number] 02:03:00 Test Item Value Reference Range Interpretation [...] % 0-1 PERCENT (BEAKER) (test code = 4571) POCT-GLUCOSE [id number] 00:17:00 Test Item Value Reference Range Interpretation Comments POC-GLUCOSE METER 137 mg/dL 70-110 H TESTED AT [place] [address] ([facility]) (test code = [facility] 1538) [address] POCT-GLUCOSE [id number] 18:14:00 Test Item Value Reference Range Interpretation Comments POC-GLUCOSE METER 106 mg/dL 70-110 TESTED AT [place] [address] ([facility]) (test code = [facility] [place] 1538) [address] VANCOMYCIN LEVEL, [id number] 14:20:00 Test Item Value Reference Range Interpretation Comments VANCOMYCIN TROUGH ([facility]) (test 7.1 ug/mL 10.0-20.0 L code = 522) If vancomycin trough level > 20 mcg/mL, hold next vancomycin dose, and contact MD and pharmacist.POCT-GLUCOSE [id number] 13:10:00 Test Item Value Reference Range Interpretation Comments POC-GLUCOSE METER 155 mg/dL 70-110 H TESTED AT [place] [address] ([facility]) (test code = [facility] [place] 1538) [address] HEPATIC FUNCTION [id number] 06:51:00 Test Item Value Reference Range Interpretation [...] = 11 U/L 6-55 347) BASIC METABOLIC [id number] 06:51:00 Test Item Value Reference Range Interpretation [...] PATIEN TS. CBC W/PLT COUNT & AUTO [id number] 05:32:00 Test Item Value Reference Range Interpretation [...] 0-1 PERCENT (BEAKER) (test code = 2801) [id number] 11:08:00 Test Item Value Reference Range Interpretation Comments PARTIAL THROMBOPLASTIN TIME 47.0 seconds 22.5-36.0 H (BEAKER) (test code = 760) PROTHROMBIN [id number] 11:07:00 Test Item Value Reference Range Interpretation [...] is 2.5-3.5 for patients wiht mechanical heart valves.HEPATIC FUNCTION [id number] 01:46:00 Test Item Value Reference Range Interpretation [...] = 16 U/L 6-55 347) BASIC METABOLIC [id number] 01:46:00 Test Item Value Reference Range Interpretation [...] PATIEN TS. CBC W/PLT COUNT & AUTO [id number] 01:19:00 Test Item Value Reference Range Interpretation [...] (BEAKER) (test code = 2801) BETA-2 GLYCOPROTEIN [id number] 08:02:00 Test Item Value Reference Range Interpretation Comments B2 GLYCOPROTEIN Refer to individual AUTOVERIFICATION COMPONENT B2-Glycoprotein (test code = 2557) IgG, IgM and IgA results. [id number] 07:34:00 Test Item Value Reference Range Interpretation Comments MAGNESIUM (BEAKER) (test code = 1.6 mg/dL 1.6-2.6 627) BASIC METABOLIC [id number] 07:34:00 Test Item Value Reference Range Interpretation [...] APPLICABLE FOR DIALYSIS PATIEN TS. HEPATIC FUNCTION [id number] 07:34:00 Test Item Value Reference Range Interpretation [...] (test code = 41 U/L 6-55 347) [id number] 07:23:00 Test Item Value Reference Range Interpretation Comments PROTIME (BEAKER) (test code = 14.8 seconds 11.7-14.7 H 759) INR (BEAKER) (test code = 370) 1.2 <=5.9 PARTIAL THROMBOPLASTIN TIME 33.8 seconds 22.5-36.0 (BEAKER) (test code = 760) RECOMMENDED COUMADIN/WARFARIN INR THERAPY RANGESSTANDARD DOSE: 2.0 - 3.0 Includes: PROPHYLAXIS for venous thrombosis, systemic embolization; TREATMENT for venous thrombosis and/or pulmonary embolus.HIGH RISK: Target INR is 2.5-3.5 for patients with mechanical heart valves.CBC W/PLT COUNT & AUTO [id number] 07:19:00 Test Item Value Reference Range Interpretation [...] 2801) LUPUS ANTICOAGULANT SCREEN WITH REFLEX TO [id number] 09:29:00 Test Item Value Reference Range Interpretation Comments DRVV SCREEN RATIO 1.39 <1.20 H (BEAKER) (test code = 2707) DRVV CONFIRM RATIO 1.21 (test code = 2709) DRVV INTERPRETATION Positive screen for (BEAKER) (test code = Lupus Anticoagulant 5735) with hexagonal phospholipid confirmation. Suggest repeat testing in 12 weeks and when patient not receiving anticoagulant therapy. PROTIME (BEAKER) (test 19.6 seconds 11.7-14.7 H code = 759) INR (BEAKER) (test code 1.7 <=5.9 = 370) PARTIAL THROMBOPLASTIN 57.5 seconds 22.5-36.0 H TIME (BEAKER) (test code = 760) PTT-LA (BEAKER) (test 61.5 32.0-41.8 H code = [id number]) [id number] Christy Smith MD (BEAKER) (test code = (electronic signature) 3640) [id number] 08:06:00 Test Item Value Reference Range Interpretation Comments MAGNESIUM (BEAKER) (test code = 1.7 mg/dL 1.6-2.6 627) BASIC METABOLIC [id number] 08:06:00 Test Item Value Reference Range Interpretation [...] APPLICABLE FOR DIALYSIS PATIEN TS. HEPATIC FUNCTION [id number] 08:06:00 Test Item Value Reference Range Interpretation [...] 6-55 347) CBC W/PLT COUNT & AUTO [id number] 07:58:00 Test Item Value Reference Range Interpretation [...] PERCENT (BEAKER) (test code = 2801) PROTHROMBIN [id number] 07:26:00 Test Item Value Reference Range Interpretation Comments PROTIME (BEAKER) (test code = 14.5 seconds 11.7-14.7 759) INR (BEAKER) (test code = 370) 1.2 <=5.9 RECOMMENDED COUMADIN/WARFARIN INR THERAPY RANGESSTANDARD DOSE: 2.0 - 3.0 Includes: PROPHYLAXIS for venous thrombosis, systemic embolization; TREATMENT for venous thrombosis and/or pulmonary embolus.HIGH RISK: Target INR is 2.5-3.5 for patients with mechanical heart valves.[id number] 07:26:00 Test Item Value Reference Range Interpretation Comments PROTIME (BEAKER) (test code = 14.5 seconds 11.7-14.7 759) INR (BEAKER) (test code = 370) 1.2 <=5.9 PARTIAL THROMBOPLASTIN TIME 38.9 seconds 22.5-36.0 H (BEAKER) (test code = 760) RECOMMENDED COUMADIN/WARFARIN INR THERAPY RANGESSTANDARD DOSE: 2.0 - 3.0 Includes: PROPHYLAXIS for venous thrombosis, systemic embolization; TREATMENT for venous thrombosis and/or pulmonary embolus.HIGH RISK: Target INR is 2.5-3.5 for patients with mechanical heart valves.HEXAGONAL [id number] 14:07:00 Test Item Value Reference Range Interpretation Comments HEXAGONAL PHOSPHOLIPID (BEAKER) Positive (test code = 1790) 1:1 MIXING STUDY, [id number]-[id number] 09:07:00 Test Item Value Reference Range Interpretation Comments PROTIME (BEAKER) (test code = 19.6 seconds 11.7-14.7 H 759) PARTIAL THROMBOPLASTIN TIME 57.5 seconds 22.5-36.0 H (BEAKER) (test code = 760) PT 1/1 MIX (BEAKER) (test code = 14.4 SECS 11.7-14.7 1595) PTT 1/1 MIX (BEAKER) (test code 41.9 SECS 22.5-36.0 H = 1596) [id number] 07:05:00 Test Item Value Reference Range Interpretation Comments PROTIME (BEAKER) (test code = 16.9 seconds 11.7-14.7 H 759) INR (BEAKER) (test code = 370) 1.4 <=5.9 PARTIAL THROMBOPLASTIN TIME 43.7 seconds 22.5-36.0 H (BEAKER) (test code = 760) RECOMMENDED COUMADIN/WARFARIN INR THERAPY RANGESSTANDARD DOSE: 2.0 - 3.0 Includes: PROPHYLAXIS for venous thrombosis, systemic embolization; TREATMENT for venous thrombosis and/or pulmonary embolus.HIGH RISK: Target INR is 2.5-3.5 for patients with mechanical heart valves.PROTHROMBIN [id number] 07:04:00 Test Item Value Reference Range Interpretation Comments PROTIME (BEAKER) (test code = 16.9 seconds 11.7-14.7 H 759) INR (BEAKER) (test code = 370) 1.4 <=5.9 RECOMMENDED COUMADIN/WARFARIN INR THERAPY RANGESSTANDARD DOSE: 2.0 - 3.0 Includes: PROPHYLAXIS for venous thrombosis, systemic embolization; TREATMENT for venous thrombosis and/or pulmonary embolus.HIGH RISK: Target INR is 2.5-3.5 for patients with mechanical heart valves.[id number] 06:49:00 Test Item Value Reference Range Interpretation Comments MAGNESIUM (BEAKER) (test code = 1.7 mg/dL 1.6-2.6 627) BASIC METABOLIC [id number] 06:49:00 Test Item Value Reference Range Interpretation [...] APPLICABLE FOR DIALYSIS PATIEN TS. HEPATIC FUNCTION [id number] 06:49:00 Test Item Value Reference Range Interpretation [...] 6-55 347) CBC W/PLT COUNT & AUTO [id number] 06:36:00 Test Item Value Reference Range Interpretation [...] code = 2801) CARDIOLIPIN ANTIBODIES, IGG AND [id number] 06:24:00 Test Item Value Reference Range Interpretation Comments ANTICARDIOLIPIN IGG ANTIBODY (BEAKER) < GPL <20.0 (test code = 712) ANTICARDIOLIPIN IGM ANTIBODY (BEAKER) 0.2 MPL <20.0 (test code = 713) Anticardiolipin IgG Result Interpretation: <20.0 GPL Normal>/= 20.0 GPL PositiveAnticardiolipin IgM Result Interpretation: <20.0 MPL Normal>/= 20.0 MPL PositiveTHROMBIN [id number] 13:45:00 Test Item Value Reference Range Interpretation Comments THROMBIN TIME (BEAKER) (test code = 17.2 secs 13.8-20.0 550) [id number] 12:46:00 Test Item Value Reference Range Interpretation Comments FIBRINOGEN LEVEL (BEAKER) (test 762 mg/dl 225-434 H code = 658) [id number] 10:48:00 Test Item Value Reference Range Interpretation Comments MAGNESIUM (BEAKER) (test code = 1.7 mg/dL 1.6-2.6 627) BASIC METABOLIC [id number] 10:48:00 Test Item Value Reference Range Interpretation [...] APPLICABLE FOR DIALYSIS PATIEN TS. HEPATIC FUNCTION [id number] 10:48:00 Test Item Value Reference Range Interpretation [...] (test code = 50 U/L 6-55 347) [id number] 06:40:00 Test Item Value Reference Range Interpretation Comments PROTIME (BEAKER) (test code = 18.8 seconds 11.7-14.7 H 759) INR (BEAKER) (test code = 370) 1.7 <=5.9 PARTIAL THROMBOPLASTIN TIME 52.3 seconds 22.5-36.0 H (BEAKER) (test code = 760) RECOMMENDED COUMADIN/WARFARIN INR THERAPY RANGESSTANDARD DOSE: 2.0 - 3.0 Includes: PROPHYLAXIS for venous thrombosis, systemic embolization; TREATMENT for venous thrombosis and/or pulmonary embolus.HIGH RISK: Target INR is 2.5-3.5 for patients with mechanical heart valves.PROTHROMBIN [id number] 06:39:00 Test Item Value Reference Range Interpretation Comments PROTIME (BEAKER) (test code = 18.8 seconds 11.7-14.7 H 759) INR (BEAKER) (test code = 370) 1.7 <=5.9 RECOMMENDED COUMADIN/WARFARIN INR THERAPY RANGESSTANDARD DOSE: 2.0 - 3.0 Includes: PROPHYLAXIS for venous thrombosis, systemic embolization; TREATMENT for venous thrombosis and/or pulmonary embolus.HIGH RISK: Target INR is 2.5-3.5 for patients with mechanical heart valves.CBC W/PLT COUNT & AUTO [id number] 06:34:00 Test Item Value Reference Range Interpretation [...] 0-1 PERCENT (BEAKER) (test code = 2801) [id number] 06:48:00 Test Item Value Reference Range Interpretation Comments MAGNESIUM (BEAKER) (test code = 1.9 mg/dL 1.6-2.6 627) BASIC METABOLIC [id number] 06:48:00 Test Item Value Reference Range Interpretation [...] APPLICABLE FOR DIALYSIS PATIEN TS. HEPATIC FUNCTION [id number] 06:48:00 Test Item Value Reference Range Interpretation [...] (test code = 50 U/L 6-55 347) [id number] 06:31:00 Test Item Value Reference Range Interpretation Comments PROTIME (BEAKER) (test code = 21.1 seconds 11.7-14.7 H 759) INR (BEAKER) (test code = 370) 1.9 <=5.9 PARTIAL THROMBOPLASTIN TIME 58.0 seconds 22.5-36.0 H (BEAKER) (test code = 760) RECOMMENDED COUMADIN/WARFARIN INR THERAPY RANGESSTANDARD DOSE: 2.0 - 3.0 Includes: PROPHYLAXIS for venous thrombosis, systemic embolization; TREATMENT for venous thrombosis and/or pulmonary embolus.HIGH RISK: Target INR is 2.5-3.5 for patients with mechanical heart valves.PROTHROMBIN [id number] 06:30:00 Test Item Value Reference Range Interpretation Comments PROTIME (BEAKER) (test code = 21.1 seconds 11.7-14.7 H 759) INR (BEAKER) (test code = 370) 1.9 <=5.9 RECOMMENDED COUMADIN/WARFARIN INR THERAPY RANGESSTANDARD DOSE: 2.0 - 3.0 Includes: PROPHYLAXIS for venous thrombosis, systemic embolization; TREATMENT for venous thrombosis and/or pulmonary embolus.HIGH RISK: Target INR is 2.5-3.5 for patients with mechanical heart valves.CBC W/PLT COUNT & AUTO [id number] 06:11:00 Test Item Value Reference Range Interpretation [...] = 2801) RAD, CHEST, 1 VIEW, NON [id number] 18:34:00Reason for exam:->SOBShould this be performed at [...] MDReport Verified Date/Time: 06/11/2018 18:34:14 Reading Location: [address] Consult Reading Room B-TYPE NATRIURETIC FACTOR (BNP)2018-06-11 15:45:00 Test Item Value Reference Range Interpretation Comments B-TYPE NATRIURETIC PEPTIDE (BEAKER) < pg/mL 0-100 (test code = 700) [id number] 06:36:00 Test Item Value Reference Range Interpretation Comments PROTIME (BEAKER) (test code = 21.5 seconds 11.7-14.7 H 759) INR (BEAKER) (test code = 370) 2.0 <=5.9 PARTIAL THROMBOPLASTIN TIME 60.3 seconds 22.5-36.0 H (BEAKER) (test code = 760) RECOMMENDED COUMADIN/WARFARIN INR THERAPY RANGESSTANDARD DOSE: 2.0 - 3.0 Includes: PROPHYLAXIS for venous thrombosis, systemic embolization; TREATMENT for venous thrombosis and/or pulmonary embolus.HIGH RISK: Target INR is 2.5-3.5 for patients with mechanical heart valves.PROTHROMBIN [id number] 06:35:00 Test Item Value Reference Range Interpretation Comments PROTIME (BEAKER) (test code = 21.5 seconds 11.7-14.7 H 759) INR (BEAKER) (test code = 370) 2.0 <=5.9 RECOMMENDED COUMADIN/WARFARIN INR THERAPY RANGESSTANDARD DOSE: 2.0 - 3.0 Includes: PROPHYLAXIS for venous thrombosis, systemic embolization; TREATMENT for venous thrombosis and/or pulmonary embolus.HIGH RISK: Target INR is 2.5-3.5 for patients with mechanical heart valves.[id number] 06:29:00 Test Item Value Reference Range Interpretation Comments MAGNESIUM (BEAKER) 1.9 mg/dL 1.6-2.6 Specimen slightly (test code = 627) hemolyzed BASIC METABOLIC [id number] 06:29:00 Test Item Value Reference Range Interpretation [...] APPLICABLE FOR DIALYSIS PATIEN TS. HEPATIC FUNCTION [id number] 06:29:00 Test Item Value Reference Range Interpretation [...] 347) hemolyzed CBC W/PLT COUNT & AUTO [id number] 06:00:00 Test Item Value Reference Range Interpretation [...] = 2801) BODY FLUID CULTURE + GRAM [id number] 18:11:00 Test Item Value Reference Range Interpretation Comments CULTURE (BEAKER) (test No growth code = 1095) GRAM STAIN RESULT <1+ White blood cells (BEAKER) (test code = seen 1123) GRAM STAIN RESULT No organisms seen (BEAKER) (test code = 69350) [id number] 07:01:00 Test Item Value Reference Range Interpretation Comments MAGNESIUM (BEAKER) (test code = 1.9 mg/dL 1.6-2.6 627) BASIC METABOLIC [id number] 07:01:00 Test Item Value Reference Range Interpretation [...] APPLICABLE FOR DIALYSIS PATIEN TS. HEPATIC FUNCTION [id number] 07:01:00 Test Item Value Reference Range Interpretation [...] code = 66 U/L 6-55 H 347) [id number] 06:32:00 Test Item Value Reference Range Interpretation Comments PROTIME (BEAKER) (test code = 22.5 seconds 11.7-14.7 H 759) INR (BEAKER) (test code = 370) 2.1 <=5.9 PARTIAL THROMBOPLASTIN TIME 56.8 seconds 22.5-36.0 H (BEAKER) (test code = 760) RECOMMENDED COUMADIN/WARFARIN INR THERAPY RANGESSTANDARD DOSE: 2.0 - 3.0 Includes: PROPHYLAXIS for venous thrombosis, systemic embolization; TREATMENT for venous thrombosis and/or pulmonary embolus.HIGH RISK: Target INR is 2.5-3.5 for patients with mechanical heart valves.CBC W/PLT COUNT & AUTO [id number] 06:26:00 Test Item Value Reference Range Interpretation [...] PERCENT (BEAKER) (test code = 2801) BLOOD [id number] 22:01:00 Test Item Value Reference Range Interpretation Comments CULTURE (BEAKER) (test No growth in 5 days code = 1095) BLOOD [id number] 22:01:00 Test Item Value Reference Range Interpretation Comments CULTURE (BEAKER) (test No growth in 5 days code = 1095) [id number] 07:20:00 Test Item Value Reference Range Interpretation Comments PROTIME (BEAKER) (test code = 21.3 seconds 11.7-14.7 H 759) INR (BEAKER) (test code = 370) 2.0 <=5.9 PARTIAL THROMBOPLASTIN TIME 50.7 seconds 22.5-36.0 H (BEAKER) (test code = 760) RECOMMENDED COUMADIN/WARFARIN INR THERAPY RANGESSTANDARD DOSE: 2.0 - 3.0 Includes: PROPHYLAXIS for venous thrombosis, systemic embolization; TREATMENT for venous thrombosis and/or pulmonary embolus.HIGH RISK: Target INR is 2.5-3.5 for patients with mechanical heart valves.CBC W/PLT COUNT & AUTO [id number] 07:09:00 Test Item Value Reference Range Interpretation [...] 0-1 PERCENT (BEAKER) (test code = 2801) [id number] 07:08:00 Test Item Value Reference Range Interpretation Comments MAGNESIUM (BEAKER) (test code = 2.1 mg/dL 1.6-2.6 627) BASIC METABOLIC [id number] 07:08:00 Test Item Value Reference Range Interpretation [...] APPLICABLE FOR DIALYSIS PATIEN TS. HEPATIC FUNCTION [id number] 07:08:00 Test Item Value Reference Range Interpretation [...] = 69 U/L 6-55 H 347) PROTHROMBIN [id number] 06:54:00 Test Item Value Reference Range Interpretation Comments PROTIME (BEAKER) (test code = 21.3 seconds 11.7-14.7 H 759) INR (BEAKER) (test code = 370) 2.0 <=5.9 RECOMMENDED COUMADIN/WARFARIN INR THERAPY RANGESSTANDARD DOSE: 2.0 - 3.0 Includes: PROPHYLAXIS for venous thrombosis, systemic embolization; TREATMENT for venous thrombosis and/or pulmonary embolus.HIGH RISK: Target INR is 2.5-3.5 for patients with mechanical heart valves.[id number] 06:24:00 Test Item Value Reference Range Interpretation Comments MAGNESIUM (BEAKER) (test code = 2.0 mg/dL 1.6-2.6 627) BASIC METABOLIC [id number] 06:24:00 Test Item Value Reference Range Interpretation [...] APPLICABLE FOR DIALYSIS PATIEN TS. HEPATIC FUNCTION [id number] 06:24:00 Test Item Value Reference Range Interpretation [...] H 347) CBC W/PLT COUNT & AUTO [id number] 06:17:00 Test Item Value Reference Range Interpretation [...] PERCENT (BEAKER) (test code = 2801) PROTHROMBIN [id number] 05:39:00 Test Item Value Reference Range Interpretation Comments PROTIME (BEAKER) (test code = 22.4 seconds 11.7-14.7 H 759) INR (BEAKER) (test code = 370) 2.1 <=5.9 RECOMMENDED COUMADIN/WARFARIN INR THERAPY RANGESSTANDARD DOSE: 2.0 - 3.0 Includes: PROPHYLAXIS for venous thrombosis, systemic embolization; TREATMENT for venous thrombosis and/or pulmonary embolus.HIGH RISK: Target INR is 2.5-3.5 for patients with mechanical heart valves.[id number] 05:39:00 Test Item Value Reference Range Interpretation Comments PROTIME (BEAKER) (test code = 22.4 seconds 11.7-14.7 H 759) INR (BEAKER) (test code = 370) 2.1 <=5.9 PARTIAL THROMBOPLASTIN TIME 48.4 seconds 22.5-36.0 H (BEAKER) (test code = 760) RECOMMENDED COUMADIN/WARFARIN INR THERAPY RANGESSTANDARD DOSE: 2.0 - 3.0 Includes: PROPHYLAXIS for venous thrombosis, systemic embolization; TREATMENT for venous thrombosis and/or pulmonary embolus.HIGH RISK: Target INR is 2.5-3.5 for patients with mechanical heart valves.VANCOMYCIN LEVEL, [id number] 05:28:00 Test Item Value Reference Range Interpretation Comments VANCOMYCIN TROUGH (BEAKER) (test 14.0 ug/mL 10.0-20.0 code = 522) RAD, CHEST, 1 VIEW, NON [id number] 16:09:00Reason for exam:->feverShould this be performed at the bedside?->YesFINAL REPORT EXAM: Frontal chest radiograph HISTORY PROVIDED: Fever COMPARISON:05/31/2018 IMPRESSION:Lung volumes are low. Retrocardiac opacification likely represents a combination of a small left pleural effusion and adjacent atelectasis or consolidation. The right lung is clear. No discernible pneumothorax. The cardiac silhouette remains enlarged. No acute osseous abnormality.There is nonspecific gaseous distention of the stomach. A pigtail catheter is seen in the left upper quadrant. Signed: Josy Price MDReport Verified Date/Time: 06/07/2018 16:09:31 Reading Location: [facility] INCUBATED 1:1 MIXING [id number] 16:01:00 Test Item Value Reference Range Interpretation Comments IMMEDIATE PT (BEAKER) 22.5 seconds 11.7-14.7 H (test code = 1487) IMMEDIATE PTT (BEAKER) 54.8 seconds 22.5-36.0 H (test code = 1488) IMMEDIATE 1:1 MIX PT 14.1 seconds 11.7-14.7 (BEAKER) (test code = 9433871131) IMMEDIATE 1:1 MIX PTT 40.9 seconds 22.5-36.0 H (BEAKER) (test code = 2197410864) 1:1 MIX, 1 HOUR INC PT 14.9 seconds (BEAKER) (test code = 1501) 1:1 MIX, 1 HOUR INC PTT 43.6 seconds (BEAKER) (test code = 1502) MIXING STUDY PATHOLOGIST Prolonged PT and PTT INTERPRETATION (BEAKER) with complete (test code = 6140368152) correction of PT and incomplete correction of PTT, 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 [id number] Meredith Reyes, MD (BEAKER) (test code = (electronic 2608) signature) URINALYSIS W/ REFLEX URINE [id number] 14:23:00 Test Item Value Reference Range Interpretation [...] 1574) Rare SOURCE(BEAKER) (test code = 2795) [id number] 04:19:00 Test Item Value Reference Range Interpretation Comments PROTIME (BEAKER) (test code = 22.3 seconds 11.7-14.7 H 759) INR (BEAKER) (test code = 370) 2.1 <=5.9 PARTIAL THROMBOPLASTIN TIME 51.1 seconds 22.5-36.0 H (BEAKER) (test code = 760) RECOMMENDED COUMADIN/WARFARIN INR THERAPY RANGESSTANDARD DOSE: 2.0 - 3.0 Includes: PROPHYLAXIS for venous thrombosis, systemic embolization; TREATMENT for venous thrombosis and/or pulmonary embolus.HIGH RISK: Target INR is 2.5-3.5 for patients with mechanical heart valves.PROTHROMBIN [id number] 04:18:00 Test Item Value Reference Range Interpretation Comments PROTIME (BEAKER) (test code = 22.3 seconds 11.7-14.7 H 759) INR (BEAKER) (test code = 370) 2.1 <=5.9 RECOMMENDED COUMADIN/WARFARIN INR THERAPY RANGESSTANDARD DOSE: 2.0 - 3.0 Includes: PROPHYLAXIS for venous thrombosis, systemic embolization; TREATMENT for venous thrombosis and/or pulmonary embolus.HIGH RISK: Target INR is 2.5-3.5 for patients with mechanical heart valves.[id number] 04:08:00 Test Item Value Reference Range Interpretation Comments MAGNESIUM (BEAKER) (test code = 1.8 mg/dL 1.6-2.6 627) BASIC METABOLIC [id number] 04:08:00 Test Item Value Reference Range Interpretation [...] APPLICABLE FOR DIALYSIS PATIEN TS. HEPATIC FUNCTION [id number] 04:08:00 Test Item Value Reference Range Interpretation [...] H 347) CBC W/PLT COUNT & AUTO [id number] 03:56:00 Test Item Value Reference Range Interpretation [...] H PERCENT (BEAKER) (test code = 2801) HAILEY, [id number] 18:30:00Reason for exam:->stonesPROCEDURE PERFORMED IN O.R. - PLEASE REFER TO THE INTRAOPERATIVE REPORT. CT, DRAINAGE, ABDOMINAL 2018-06-06 18:06:00Reason for exam:->drainage of pancreatic fluid collection; concern for infection given ongoing fevers, WBC 24kFINAL REPORT INDICATION:28-year-old male with acute pancreatitis and acute necrotic collection. Request for percutaneous image guided drainage catheter placement. COMPARISON:June TECHNIQUE:CT-guided placement of 10 Belgian drainage catheter in left upper quadrant peripancreatic [...] and the introducer needle removed. An 8 Belgian and then 10 Belgian dilator were used. Then, a 10 Belgian multisidehole drainage catheter was placed over the [...] 45 minutes. IMPRESSION: CT-guided placement of 10 Belgian drainage catheter in left upper quadrant peripancreatic collection. Thin dark fluid was encountered. Signed: Aldo Mcguire MDReport Verified Date/Time: 06/06/2018 18:06:54 Reading Location: [facility] B1 C013Y CT Body Reading Room C. DIFFICILE GDH [id number] 10:12:00 Test Item Value Reference Range Interpretation Comments CDT TOXIN (test code Negative Negative = [id number]) CDT GDH ANTIGEN (test Negative Negative No ind ication of code = 3947801053) Clostridi um difficile infection and n o colonization. Discontinue ent sonal isolation and t herapy. Testing performed by [employer] Rapid Cassette Assay. For GDH, published sensitivity of the assay is 98.7% compared to cytotoxicity testing. For Toxin AB, published sensitivity is 87.8% and specificity 99.4% compared to cytotoxicity testing.Verification of kit performance was done by the [facility] prior to clinical use.VANCOMYCIN LEVEL, [id number] 04:02:00 Test Item Value Reference Range Interpretation Comments VANCOMYCIN TROUGH (BEAKER) (test 9.9 ug/mL 10.0-20.0 L code = 522) [id number] 02:24:00 Test Item Value Reference Range Interpretation Comments MAGNESIUM (BEAKER) (test code = 1.8 mg/dL 1.6-2.6 627) BASIC METABOLIC [id number] 02:24:00 Test Item Value Reference Range Interpretation [...] APPLICABLE FOR DIALYSIS PATIEN TS. HEPATIC FUNCTION [id number] 02:24:00 Test Item Value Reference Range Interpretation [...] code = 60 U/L 6-55 H 347) [id number] 02:12:00 Test Item Value Reference Range Interpretation Comments PROTIME (BEAKER) (test code = 20.9 seconds 11.7-14.7 H 759) INR (BEAKER) (test code = 370) 1.9 <=5.9 PARTIAL THROMBOPLASTIN TIME 48.9 seconds 22.5-36.0 H (BEAKER) (test code = 760) RECOMMENDED COUMADIN/WARFARIN INR THERAPY RANGESSTANDARD DOSE: 2.0 - 3.0 Includes: PROPHYLAXIS for venous thrombosis, systemic embolization; TREATMENT for venous thrombosis and/or pulmonary embolus.HIGH RISK: Target INR is 2.5-3.5 for patients with mechanical heart valves.PROTHROMBIN TIME/[id number] 02:11:00 Test Item Value Reference Range Interpretation Comments PROTIME (BEAKER) (test code = 20.9 seconds 11.7-14.7 H 759) INR (BEAKER) (test code = 370) 1.9 <=5.9 RECOMMENDED COUMADIN/WARFARIN INR THERAPY RANGESSTANDARD DOSE: 2.0 - 3.0 Includes: PROPHYLAXIS for venous thrombosis, systemic embolization; TREATMENT for venous thrombosis and/or pulmonary embolus.HIGH RISK: Target INR is 2.5-3.5 for patients with mechanical heart valves.CBC W/PLT COUNT & AUTO [id number] 02:00:00 Test Item Value Reference Range Interpretation [...] H PERCENT (BEAKER) (test code = 2801) [id number] 16:33:00 Test Item Value Reference Range Interpretation Comments FIBRINOGEN LEVEL (BEAKER) (test 852 mg/dl 225-434 H code = 658) CT, [id number] 12:46:00FINAL REPORT CT abdomen and pelvis with [...] the mA and /or kV according to patientsize, and/or use of iterative reconstruction technique. Findings: Small bilateral pleural effusions. Bilateral lower lobe airspace disease is probably dependent atelectasis. Moderate peripancreatic fluid, suggestive of acute pancreatitis. Within the pancreatic head, there is a subtle area of decreasedattenuation measuring approximately 2.4 cm in size (axial image 39). The splenic vein is patent. A fl uid collection is seen interposed between the greater [...] pericholecystic fluid. Unremarkable appearance of adrenal glands, kidneys,ureters, and urinary bladder. . No small or [...] or early pancreatic necrosis.3. Developing 7.2 x 6.5 x 3.7 cm fluid colle ction between the pancreatic body and greater curvature of the stomach. No gas is contained within this collection to definitively suggest abscess, although this possibility is not entirely excluded.4.Diffuse fatty infiltration of the liver.5. Common bile duct stent in place, without evidence of biliary dilation. Signed: Keegan Rahman MDReport Verified Date/Time: 06/05/2018 12:46:00 Reading Location: [facility] Diagnostic Imaging Reading Room - [place] [address] Electronically signed by: Aleida CAMEJO 06/05/2018 12:46 PMCBC W/PLT COUNT & AUTO [id number] 10:12:00 Test Item Value Reference Range Interpretation [...] = 3438) Received comment: User comments: Slide comments:[id number] 04:13:00 Test Item Value Reference Range Interpretation Comments PROTIME (BEAKER) (test code = 20.4 seconds 11.7-14.7 H 759) INR (BEAKER) (test code = 370) 1.9 <=5.9 PARTIAL THROMBOPLASTIN TIME 45.0 seconds 22.5-36.0 H (BEAKER) (test code = 760) RECOMMENDED COUMADIN/WARFARIN INR THERAPY RANGESSTANDARD DOSE: 2.0 - 3.0 Includes: PROPHYLAXIS for venous thrombosis, systemic embolization; TREATMENT for venous thrombosis and/or pulmonary embolus.HIGH RISK: Target INR is 2.5-3.5 for patients with mechanical heart valves.[id number] 04:12:00 Test Item Value Reference Range Interpretation Comments MAGNESIUM (BEAKER) (test code = 1.8 mg/dL 1.6-2.6 627) BASIC METABOLIC [id number] 04:12:00 Test Item Value Reference Range Interpretation [...] APPLICABLE FOR DIALYSIS PATIEN TS. HEPATIC FUNCTION [id number] 04:12:00 Test Item Value Reference Range Interpretation [...] code = 55 U/L 6-55 347) PROTHROMBIN [id number] 04:12:00 Test Item Value Reference Range Interpretation Comments PROTIME (BEAKER) (test code = 20.4 seconds 11.7-14.7 H 759) INR (BEAKER) (test code = 370) 1.9 <=5.9 RECOMMENDED COUMADIN/WARFARIN INR THERAPY RANGESSTANDARD DOSE: 2.0 - 3.0 Includes: PROPHYLAXIS for venous thrombosis, systemic embolization; TREATMENT for venous thrombosis and/or pulmonary embolus.HIGH RISK: Target INR is 2.5-3.5 for patients with mechanical heart valves.BLOOD [id number] 02:02:00 Test Item Value Reference Range Interpretation Comments CULTURE (BEAKER) (test No growth in 5 days code = 1095) BLOOD [id number] 02:02:00 Test Item Value Reference Range Interpretation Comments CULTURE (BEAKER) (test No growth in 5 days code = 1095) CBC W/PLT COUNT & AUTO [id number] 22:18:00 Test Item Value Reference Range Interpretation [...] = 3438) Received comment: User comments: Slide comments:[id number] 14:28:00 Test Item Value Reference Range Interpretation Comments PROCALCITONIN (BEAKER) (test code 0.62 ng/mL <0.05 H = 3036) SEPSIS RISK (ng/mL)Low: 0.05-0.50Intermediate: 0.51-2.00High: >=2.01LACTIC ACID, [id number] 14:07:00 Test Item Value Reference Range Interpretation Comments LACTATE BLOOD VENOUS 1.1 mmol/L 0.5-2.2 Specime n moderately (2) (BEAKER) (test hemolyzed code = 7443) [id number] 06:34:00 Test Item Value Reference Range Interpretation Comments MAGNESIUM (BEAKER) (test code = 1.7 mg/dL 1.6-2.6 627) BASIC METABOLIC [id number] 06:34:00 Test Item Value Reference Range Interpretation [...] APPLICABLE FOR DIALYSIS PATIEN TS. HEPATIC FUNCTION [id number] 06:34:00 Test Item Value Reference Range Interpretation [...] (test code = 53 U/L 6-55 347) [id number] 06:06:00 Test Item Value Reference Range Interpretation Comments PROTIME (BEAKER) (test code = 18.7 seconds 11.7-14.7 H 759) INR (BEAKER) (test code = 370) 1.7 <=5.9 PARTIAL THROMBOPLASTIN TIME 38.7 seconds 22.5-36.0 H (BEAKER) (test code = 760) RECOMMENDED COUMADIN/WARFARIN INR THERAPY RANGESSTANDARD DOSE: 2.0 - 3.0 Includes: PROPHYLAXIS for venous thrombosis, systemic embolization; TREATMENT for venous thrombosis and/or pulmonary embolus.HIGH RISK: Target INR is 2.5-3.5 for patients with mechanical heart valves.PROTHROMBIN [id number] 06:05:00 Test Item Value Reference Range Interpretation Comments PROTIME (BEAKER) (test code = 18.7 seconds 11.7-14.7 H 759) INR (BEAKER) (test code = 370) 1.7 <=5.9 RECOMMENDED COUMADIN/WARFARIN INR THERAPY RANGESSTANDARD DOSE: 2.0 - 3.0 Includes: PROPHYLAXIS for venous thrombosis, systemic embolization; TREATMENT for venous thrombosis and/or pulmonary embolus.HIGH RISK: Target INR is 2.5-3.5 for patients with mechanical heart valves.[id number] 06:22:00 Test Item Value Reference Range Interpretation Comments MAGNESIUM (BEAKER) (test code = 1.8 mg/dL 1.6-2.6 627) BASIC METABOLIC [id number] 06:22:00 Test Item Value Reference Range Interpretation [...] APPLICABLE FOR DIALYSIS PATIEN TS. HEPATIC FUNCTION [id number] 06:22:00 Test Item Value Reference Range Interpretation [...] (test code = 46 U/L 6-55 347) [id number] 06:08:00 Test Item Value Reference Range Interpretation Comments PROTIME (BEAKER) (test code = 17.4 seconds 11.7-14.7 H 759) INR (BEAKER) (test code = 370) 1.5 <=5.9 PARTIAL THROMBOPLASTIN TIME 39.9 seconds 22.5-36.0 H (BEAKER) (test code = 760) RECOMMENDED COUMADIN/WARFARIN INR THERAPY RANGESSTANDARD DOSE: 2.0 - 3.0 Includes: PROPHYLAXIS for venous thrombosis, systemic embolization; TREATMENT for venous thrombosis and/or pulmonary embolus.HIGH RISK: Target INR is 2.5-3.5 for patients with mechanical heart valves.PROTHROMBIN [id number] 06:07:00 Test Item Value Reference Range Interpretation Comments PROTIME (BEAKER) (test code = 17.4 seconds 11.7-14.7 H 759) INR (BEAKER) (test code = 370) 1.5 <=5.9 RECOMMENDED COUMADIN/WARFARIN INR THERAPY RANGESSTANDARD DOSE: 2.0 - 3.0 Includes: PROPHYLAXIS for venous thrombosis, systemic embolization; TREATMENT for venous thrombosis and/or pulmonary embolus.HIGH RISK: Target INR is 2.5-3.5 for patients with mechanical heart valves.CBC W/PLT COUNT & AUTO [id number] 05:56:00 Test Item Value Reference Range Interpretation [...] = 2801) CBC W/PLT COUNT & AUTO [id number] 04:50:00 Test Item Value Reference Range Interpretation [...] H PERCENT (BEAKER) (test code = 2801) [id number] 04:26:00 Test Item Value Reference Range Interpretation Comments MAGNESIUM (BEAKER) (test code = 1.7 mg/dL 1.6-2.6 627) BASIC METABOLIC [id number] 04:26:00 Test Item Value Reference Range Interpretation [...] APPLICABLE FOR DIALYSIS PATIEN TS. HEPATIC FUNCTION [id number] 04:26:00 Test Item Value Reference Range Interpretation [...] (test code = 54 U/L 6-55 347) [id number] 04:11:00 Test Item Value Reference Range Interpretation Comments PROTIME (BEAKER) (test code = 17.3 seconds 11.7-14.7 H 759) INR (BEAKER) (test code = 370) 1.5 <=5.9 PARTIAL THROMBOPLASTIN TIME 34.7 seconds 22.5-36.0 (BEAKER) (test code = 760) RECOMMENDED COUMADIN/WARFARIN INR THERAPY RANGESSTANDARD DOSE: 2.0 - 3.0 Includes: PROPHYLAXIS for venous thrombosis, systemic embolization; TREATMENT for venous thrombosis and/or pulmonary embolus.HIGH RISK: Target INR is 2.5-3.5 for patients with mechanical heart valves.PROTHROMBIN [id number] 04:10:00 Test Item Value Reference Range Interpretation Comments PROTIME (BEAKER) (test code = 17.3 seconds 11.7-14.7 H 759) INR (BEAKER) (test code = 370) 1.5 <=5.9 RECOMMENDED COUMADIN/WARFARIN INR THERAPY RANGESSTANDARD DOSE: 2.0 - 3.0 Includes: PROPHYLAXIS for venous thrombosis, systemic embolization; TREATMENT for venous thrombosis and/or pulmonary embolus.HIGH RISK: Target INR is 2.5-3.5 for patients with mechanical heart valves.U/S, ABDOMINAL, [id number] 14:19:00Abdomen limited area? Add comment if clarification [...] liver is normal in size. Hepatic length is15.8 cm. Hepatic echogenicity appears increased, which may [...] dilatation. 2. Fatty liver. Signed: Josy Albert MDRort Verified Date/Time: 06/01/2018 14:19:45 Reading Location: [address] Transitional Reading Room CBC W/PLT COUNT & AUTO [id number] 06:28:00 Test Item Value Reference Range Interpretation [...] 0-1 PERCENT (BEAKER) (test code = 2801) [id number] 05:51:00 Test Item Value Reference Range Interpretation Comments MAGNESIUM (BEAKER) (test code = 2.0 mg/dL 1.6-2.6 627) BASIC METABOLIC [id number] 05:51:00 Test Item Value Reference Range Interpretation [...] DIALYSIS PATIEN TS. Specimen slightly ictericHEPATIC FUNCTION [id number] 05:51:00 Test Item Value Reference Range Interpretation [...] = 48 U/L 6-55 347) Specimen slightly ictericPT/[id number] 05:30:00 Test Item Value Reference Range Interpretation Comments PROTIME (BEAKER) (test code = 16.0 seconds 11.7-14.7 H 759) INR (BEAKER) (test code = 370) 1.3 <=5.9 PARTIAL THROMBOPLASTIN TIME 38.9 seconds 22.5-36.0 H (BEAKER) (test code = 760) RECOMMENDED COUMADIN/WARFARIN INR THERAPY RANGESSTANDARD DOSE: 2.0 - 3.0 Includes: PROPHYLAXIS for venous thrombosis, systemic embolization; TREATMENT for venous thrombosis and/or pulmonary embolus.HIGH RISK: Target INR is 2.5-3.5 for patients with mechanical heart valves.PROTHROMBIN [id number] 05:29:00 Test Item Value Reference Range Interpretation Comments PROTIME (BEAKER) (test code = 16.0 seconds 11.7-14.7 H 759) INR (BEAKER) (test code = 370) 1.3 <=5.9 RECOMMENDED COUMADIN/WARFARIN INR THERAPY RANGESSTANDARD DOSE: 2.0 - 3.0 Includes: PROPHYLAXIS for venous thrombosis, systemic embolization; TREATMENT for venous thrombosis and/or pulmonary embolus.HIGH RISK: Target INR is 2.5-3.5 for patients with mechanical heart valves.RAD, CHEST, 1 VIEW, NON [id number] 11:58:00Reason for exam:->pancreatitisShould this be performed at the bedside?->YesFINAL REPORT Portable chest. HISTORY: Pancreatitis. COMPARISON STUDY: None available. FINDINGS: The cardiac size is enlarged. The lung volumes are low. There is atelectasis or consolidation left lung base with blunting of the left costophrenic angle. No pneumothorax is seen. The regional skeleton is unremarkable. IMPRESSION: Low lung volumes with atelectasis or consolidation in the left lung base. Signed: Perez Huerta MDRepssm [facility] Verified Date/Time: 05/31/2018 11:58:54 Reading Location: [facility] Radiology Reading Room Electronically signed by: PEREZ HUERTA M.D. on 2018 11:58 AMCBC W/PLT COUNT & AUTO [id number] 08:44:00 Test Item Value Reference Range Interpretation [...] = 3438) Received comment: User comments: Slide comments:[id number] 04:27:00 Test Item Value Reference Range Interpretation Comments MAGNESIUM (BEAKER) (test code = 1.6 mg/dL 1.6-2.6 627) BASIC METABOLIC [id number] 04:27:00 Test Item Value Reference Range Interpretation [...] DIALYSIS PATIEN TS. Specimen moderately ictericHEPATIC FUNCTION [id number] 04:27:00 Test Item Value Reference Range Interpretation [...] = 29 U/L 6-55 347) Specimen moderately ictericPT/[id number] 04:15:00 Test Item Value Reference Range Interpretation Comments PROTIME (BEAKER) (test code = 17.0 seconds 11.7-14.7 H 759) INR (BEAKER) (test code = 370) 1.4 <=5.9 PARTIAL THROMBOPLASTIN TIME 39.4 seconds 22.5-36.0 H (BEAKER) (test code = 760) RECOMMENDED COUMADIN/WARFARIN INR THERAPY RANGESSTANDARD DOSE: 2.0 - 3.0 Includes: PROPHYLAXIS for venous thrombosis, systemic embolization; TREATMENT for venous thrombosis and/or pulmonary embolus.HIGH RISK: Target INR is 2.5-3.5 for patients with mechanical heart valves.PROTHROMBIN TIME/[id number] 04:14:00 Test Item Value Reference Range Interpretation Comments PROTIME (BEAKER) (test code = 17.0 seconds 11.7-14.7 H 759) INR (BEAKER) (test code = 370) 1.4 <=5.9 RECOMMENDED COUMADIN/WARFARIN INR THERAPY RANGESSTANDARD DOSE: 2.0 - 3.0 Includes: PROPHYLAXIS for [...] = 2795) CBC W/PLT COUNT & AUTO [id number] 21:33:00 Test Item Value Reference Range Interpretation [...] 3438) Received comment: User comments: Slide comments:TROPONIN [id number] 21:32:00 Test Item Value Reference Range Interpretation [...] acute neurological disease, and persistent tachyarrhythmia.BASIC METABOLIC [id number] 21:29:00 Test Item Value Reference Range Interpretation [...] APPLICABLE FOR DIALYSIS PATIEN TS. Specimen moderately [id number] 21:27:00 Test Item Value Reference Range Interpretation Comments MAGNESIUM (BEAKER) (test code = 1.6 mg/dL 1.6-2.6 627) LIPID [id number] 21:27:00 Test Item Value Reference Range Interpretation Comments TRIGLYCERIDES (BEAKER) (test code = 102 mg/dL 540) CHOLESTEROL (BEAKER) (test code = 101 mg/dL 631) HDL CHOLESTEROL (BEAKER) (test code 17 mg/dL = 976) LDL CHOLESTEROL CALCULATED (BEAKER) 64 mg/dL (test code = 633) Triglyceride Reference Range: Low Risk <150 Borderline 150-199 High Risk 200- 499 Very High Risk >=500Cholesterol Reference Range: Low Risk <200 Borderline 200-239 High Risk >240HDL Cholesterol Reference Range: Low Risk >=60 High Risk <40LDL Cholesterol Reference Range: Optimal <100 Near Optimal 100-129 Borderline 130-159 High 160-189 Very High >=190 Specimen moderately ictericHEPATIC FUNCTION [id number] 21:27:00 Test Item Value Reference Range Interpretation [...] 9-64 (test code = 364) Specimen moderately [id number] 21:27:00 Test Item Value Reference Range Interpretation Comments LIPASE (BEAKER) (test code = 749) 227 U/L 8-78 H Specimen moderately ictericPROTHROMBIN [id number] 21:05:00 Test Item Value Reference Range Interpretation Comments PROTIME (BEAKER) (test code = 17.1 seconds 11.7-14.7 H 759) INR (BEAKER) (test code = 370) 1.4 <=5.9 RECOMMENDED COUMADIN/WARFARIN INR THERAPY RANGESSTANDARD DOSE: 2.0 - 3.0 Includes: PROPHYLAXIS for venous thrombosis, systemic embolization; TREATMENT for venous thrombosis and/or pulmonary embolus.HIGH RISK: Target INR is 2.5-3.5 for patients with mechanical heart valves.
[2021-09-25] MEDS ORDERED: PANTOPRAZOLE 40 MG INJ ONE (11:33)
[2021-09-25] MEDS ORDERED: NA CHLORIDE 0.9% 1,000 ML ONE ×2 (11:33→14:16)
[2021-09-25] MEDS ORDERED: NA CHLORIDE 0.9% 0 ML ONE (11:33)
[2021-09-25 12:02] LABS: ALT/SGPT 91 U/L (12-78); Albumin 2.1 g/dL (3.4-5.0); Alkaline Phosphatase 467 U/L (45-117); BUN Blood Urea Nitrogen 6 mg/dL (7-18); Bicarbonate 28 mmol/L (21-32); Bilirubin Total 0.1 mg/dL (0.2-1.0); Glomerular Filtration Rate 124 ml/min (=/>90); Glucose Level 176 mg/dL (74-106); NT PRO-BNP 60 pg/mL (<125); Protein, Total 5.9 g/dL (6.4-8.2); Sodium Level 137 mmol/L (136-145)
[2021-09-25 12:04] LABS: AST/SGOT 112 U/L (15-37); Bilirubin Direct < 0.1 mg/dL (0-0.2); Magnesium 1.7 mg/dL (1.8-2.4); Potassium 4.4 mmol/L (3.5-5.1); Troponin High Sensitivity < 3.0 pg/mL (<58.9)
[2021-09-25 12:09] LABS: Absolute Lymphocytes (CBC) 1.7 K/uL (0.7-4.9); Hematocrit 26.9 % (39.6-49.0); Lymphocytes % 13.2 % (15.3-44.8); MCV 89.6 fL (80-100); MPV 8.3 fL (7.6-11.3)
[2021-09-25 12:38] LABS: Protime INR 1.36
--- NOTE | 2021-09-25 12:52 | RAD REPORT ---
EXAM DESCRIPTION: RAD - Chest Single View - 09/25/2021 11:54 am CLINICAL HISTORY: syncope COMPARISON: Portable chest 12/13/2019 TECHNIQUE: AP portable chest image was obtained 09/25/2021 11:54 am . FINDINGS: Lungs are clear. Heart and vasculature are normal. No measurable pleural effusion and no p neumothorax. No acute bony abnormality seen. No acute aortic findings suspected. IMPRESSION: No acute cardiopulmonary process.
--- NOTE | 2021-09-25 13:02 | RAD REPORT ---
EXAM DESCRIPTION: CT - Abdomen Pelvis W Contrast - 09/25/2021 12:24 pm CLINICAL HISTORY: blood in stools COMPARISON: Abdomen Pelvis W Contrast dated 03/16/2020 TECHNIQUE: Biphasic, helical CT imaging of the abdomen and pelvis was performed following 100 ml non -ionic IV contrast. No oral contrast was administered. All CT scans are performed using dose optimization technique as appropriate and may include automated exposure control or mA/KV adjustment according to patient size. FINDINGS: No suspicious findings in the lung bases. Diffuse fatty infiltration of the liver is present with no suspicious liver lesion identifiable. Port al vein enhances normally. Spleen is absent. The head of the pancreas appears congested and edematous . Body and tail of the pancreas are slightly thickened. There may have been partial resection of the pancreatic tail. No clearly defined solid or cystic pancreatic mass. Trace amount of stranding is see n in the peripancreatic fatty tissues. Duodenal C-loop shows mild wall thickening and edema. Gallblad aman is absent. Intrahepatic and extrahepatic biliary tree dilatation are present. Common bile duct is 11 mm in diameter which is upper normal for a post cholecystectomy patient. Symmetric renal function is seen with no hydronephrosis or suspicious renal mass. No pyelonephritis o r acute parenchymal process. No bladder abnormalities. No adrenal abnormalities. Fluid, air and a small amount of fluid are present filling but not dilating the lumen of the stomach. Percutaneous tube is present with the pigtail curled in the body of the stomach. No abnormality ino g the course of the percutaneous gastric tube. Jejunum and ileum show no suspicious findings. There i s a large amount of stool dilating the rectum to 6 cm. Large amount of stool distends the tortuous si gmoid colon. There is moderate stool volume filling the remainder of the colon. Stool filled cecum is low-lying in the pelvis abutting the tortuous sigmoid colon. No free air, pneumatosis or free fluid. No hernia, mass or bulky lymphadenopathy. No suspicious bony findings. IMPRESSION: Pancreatic head and duodenal changes detailed above suggest acute pancreatitis and corre lation is needed with clinical and laboratory findings. Additional chronic pancreatitis changes are p resent. Spleen has been resected. Large stool volume dilates the rectum to 6 cm and distends the tortuous and redundant sigmoid colon. Moderate stool volume elsewhere throughout the colon. Dilated biliary tree not outside of normal range for a post cholecystectomy patient. Biliary tree siz e is similar to the 2020 comparison.
--- NOTE | 2021-09-25 13:30 | EDPHYS ---
Physician Documentation [facility] Name: Jann Alvarez Age: 31 yrs Sex: Male : 1990 Arrival Date: 09/25/2021 Time: 11:02 Bed 23 Private MD: Ruben Churchill M; Zac Coughlin ED Physician Shi Santos HPI: 09/25 12:43 This 31 yrs old Male presents to ER via EMS with complaints of Syncope. cp 12:43 The patient presents to the emergency department with rectal bleeding, red colored, cp dark red blood with bowel movement with multiple such episodes. Onset: The symptoms/episode began/occurred yesterday. Abdominal pain: none is appreciated. Associated signs and symptoms: Pertinent positives: anorexia, syncope, Pertinent negatives: diarrhea, vomiting. Severity of symptoms: in the emergency department the symptoms are unchanged despite home interventions. The patient has experienced similar episodes in the past, several times. 12:43 Mother reports patient having syncopal episode today while standing. cp Historical: - Allergies: 11:54 meropenem; tp1 11:54 Vancomycin; tp1 11:54 Zosyn; tp1 - Home Meds: 11:54 pantoprazole 40 mg oral TbEC [Active]; Zofran 4 mg Oral tab 1 tab every 12 hours tp1 [Active]; sucralfate 100 mg/mL Oral susp 10 mL 4 times per day [Active]; tylenol every 6 hours [Active]; sinus twice a day [Active]; - PMHx: 11:54 Autism; Gastric varices; Lupus; Pancreatitis; SEVERE PANCREATIC NECROSIS; tp1 - Immunization history:: Client reports having NOT received the Covid vaccine. - Social history:: Smoking status: Patient denies any tobacco usage or history of. ROS: 12:45 Constitutional: Negative for body aches, chills, fever, poor PO intake. cp 12:45 Eyes: Negative for injury, pain, redness, and discharge. cp 12:45 ENT: Negative for drainage from ear(s), ear pain, sore throat, difficulty swallowing, difficulty handling secretions. 12:45 Cardiovascular: Negative for chest pain, edema, palpitations. 12:45 Respiratory: Negative for cough, shortness of breath, wheezing. 12:45 Abdomen/GI: Positive for black/tarry stool, rectal bleeding, Negative for abdominal pain, vomiting, diarrhea. 12:45 Neuro: Positive for syncope, Negative for altered mental status, headache. 12:45 All other systems are negative. Exam: 11:37 ECG was reviewed by the Attending Physician. cp 12:50 Constitutional: The patient appears in no acute distress, alert, awake, cp non-diaphoretic, non-toxic, well developed, well nourished. 12:50 Head/Face: Normocephalic, atraumatic. cp 12:50 Eyes: Periorbital structures: appear normal, Pupils: equal, round, and reactive to light and accomodation, Extraocular movements: intact throughout, Conjunctiva: normal, no exudate, no injection, Sclera: no appreciated abnormality, Lids and lashes: appear normal, bilaterally. 12:50 ENT: External ear(s): are unremarkable, Nose: is normal, Mouth: Lips: moist, Oral mucosa: pink and intact, moist, Posterior pharynx: Airway: no evidence of obstruction, patent. 12:50 Neck: ROM/movement: is normal, is supple, without pain, no range of motions limitations, no nuchal rigidity. 12:50 Chest/axilla: Inspection: normal, Palpation: is normal, no crepitus, no tenderness. 12:50 Cardiovascular: Rate: tachycardic, Rhythm: regular, Edema: is not appreciated, JVD: is not appreciated. 12:50 Respiratory: the patient does not display signs of respiratory distress, Respirations: normal, no use of accessory muscles, no retractions, labored breathing, is not present, Breath sounds: are clear throughout, no decreased breath sounds, no stridor, no wheezing. 12:50 Abdomen/GI: Inspection: gastrostomy tube noted left upper abdomen, Bowel sounds: active, all quadrants, Palpation: soft, in all quadrants, mild abdominal tenderness, in all quadrants, rebound tenderness, is not appreciated, involuntary guarding, is not appreciated, Rectal exam: Stool: guaiac positive, maroon. 12:50 Back: pain, is absent, ROM is normal. 12:50 Skin: cellulitis, is not appreciated, no rash present. 12:50 Neuro: Orientation: no acute changes, per family, Mentation: no acute changes, per family, Motor: moves all fours, strength is normal. Vital Signs: 11:08 BP 97 / 72; Pulse 107; Resp 20; Temp 98.5; Pulse Ox 100% ; tp1 11:11 BP 97 / 72; Pulse 107; Resp 20; Temp 98.5; Pulse Ox 100% on R/A; Weight 58.97 kg; tp1 Height 5 ft. 10 in. (177.80 cm); 12:08 BP 97 / 79; Pulse 102; Resp 18; Pulse Ox 100% on R/A; tp1 13:00 BP 93 / 65; Pulse 90; Resp 14; Pulse Ox 100% on R/A; vg1 14:00 BP 100 / 79; Pulse 92; Resp 18; Pulse Ox 100% on R/A; vg1 14:45 BP 102 / 67; Pulse 86; Resp 14; Pulse Ox 100% on R/A; vg1 15:00 BP 97 / 66; Pulse 88; Resp 15; Pulse Ox 100% on R/A; vg1 17:35 BP 108 / 74; Pulse 87; Resp 14; Temp 98.6(O); Pulse Ox 100% on R/A; vg1 11:11 Body Mass Index 18.65 (58.97 kg, 177.80 cm) tp1 MDM: 11:09 Patient medically screened. sd2 12:00 Differential diagnosis: gastritis, diverticulitis, hemorrhoids, hemorrhagic shock, cp upper GI bleed. 13:30 Data reviewed: vital signs, nurses notes, lab test result(s), EKG, radiologic studies, cp CT scan, plain films. 13:30 Test interpretation: by ED physician or midlevel provider: ECG, plain radiologic cp studies. Counseling: I had a detailed discussion with the patient and/or guardian regarding: the historical points, exam findings, and any diagnostic results supporting the discharge/admit diagnosis, lab results, radiology results, the need to transfer to another facility, [facility] does not immediately have the required specialist. 09/25 11:11 Order name: Basic Metabolic Panel; Complete Time: 12:36 cp 09/25 12:37 Interpretation: Normal except: GLUC 176; BUN 6; CA 7.8. cp 09/25 11:11 Order name: CBC with Diff; Complete Time: 12:36 cp 09/25 12:37 Interpretation: Normal except: WBC 12.50; RBC 3.00; HGB 9.0; HCT 26.9; RDW 16.3; MEENA% cp 76.4; LYM% 13.2; NEUT A 9.6. 09/25 11:11 Order name: LFT's; Complete Time: 12:36 cp 09/25 13:13 Interpretation: Normal except: AST 112; ALT 91; ALK 467; BILIT 0.1; TP 5.9; ALB 2.1; cp GLOB 3.8; A/G 0.6. 09/25 11:11 Order name: Magnesium; Complete Time: 12:36 cp 09/25 11:11 Order name: NT PRO-BNP; Complete Time: 12:36 cp 09/25 11:11 Order name: PT-INR; Complete Time: 13:11 cp 09/25 11:11 Order name: Troponin HS; Complete Time: 12:36 cp 09/25 11:11 Order name: Type And Screen 09/25 11:13 Order name: Occult Blood--Ancillary; Complete Time: 13:11 eb 09/25 13:15 Order name: Blood Culture Adult (2) cp 09/25 11:11 Order name: XRAY Chest (1 view); Complete Time: 13:11 cp 09/25 11:11 Order name: EKG; Complete Time: 11:12 cp 09/25 11:11 Order name: Cardiac monitoring; Complete Time: 11:40 cp 09/25 11:11 Order name: EKG - Nurse/Tech; Complete Time: 11:40 cp 09/25 11:21 Order name: CT Abd/Pelvis - IV Contrast Only; Complete Time: 13:11 cp 09/25 13:18 Order name: SARS RAPID; Complete Time: 14:18 eb 09/25 13:26 Order name: Packed RBC Leukored EDMS 09/25 11:11 Order name: IV Saline Lock; Complete Time: 11:40 cp 09/25 11:11 Order name: Labs collected and sent; Complete Time: 11:40 cp 09/25 11:11 Order name: O2 Per Protocol; Complete Time: 11:19 cp 09/25 11:11 Order name: O2 Sat Monitoring; Complete Time: 11:19 cp 09/25 13:17 Order name: Transfuse; Complete Time: 15:06 cp EC:37 Rate is 109 beats/min. Rhythm is regular. NV interval is normal. QRS interval is cp normal. QT interval is normal. T waves are Inverted in lead aVR. Interpreted by me. Reviewed by me. Administered Medications: 11:34 Drug: ProTONIX (pantoprazole) 40 mg Route: IVP; Site: right femoral; tp1 15:07 Follow up: Response: No adverse reaction vg1 11:36 Drug: NS 0.9% 1000 ml Route: IV; Rate: 1 bolus; Site: right forearm; tp1 13:00 Follow up: IV Status: Completed infusion; IV Intake: 1000ml tp1 11:39 Drug: ProTONIX (pantoprazole) 8 mg/hr Route: IV; Rate: 25 ml/hr; Site: right forearm; tp1 17:49 Follow up: IV Status: Infusion continued upon transfer tp1 14:48 Drug: Rocephin (cefTRIAXone) 1 grams Route: IV; Rate: calculated rate; Site: right vg1 antecubital; 14:50 Follow up: IV Status: Completed infusion; IV Intake: 50ml vg1 15:17 Drug: Lactulose 30 grams Volume: 45 ml; Route: PO; vg1 16:34 Follow up: Response: No adverse reaction vg1 15:43 Drug: Dulcolax (bisacodyl) Suppository 10 mg Route: NV; vg1 16:35 Follow up: Response: No adverse reaction vg1 17:04 Not Given (Physician Discretion): Fleet Enema (sodium phosphate) 133 ml NV once; may vg1 repeat once 17:51 Not Given (pt transfered with blood products and protonix drip ): Magnesium Sulfate 1 tp1 grams IVPB once over 1 hrs Disposition: 19:11 STAFF ATTESTATION: The patient's history, exam findings, diagnostics and a summary of sd2 any interventions or procedures was reviewed in detail with the ED MARIA LUZ. I confirm the diagnosis as documented by the MARIA LUZ and I agree with the care plan articulated in the disposition section with regards to our discussion of the patient's case. Shi Santos MD. Disposition Summary: 09/25/21 13:30 Transfer Ordered Transfer Location: [facility] cp Reason: Higher level of care cp Condition: Stable cp Problem: new cp Symptoms: have improved cp Accepting Physician: Dr. Contreras [facility](09/25/21 17:52) tp1 Diagnosis - GI Bleed/ Gastrointestinal hemorrhage, unspecified cp - Hypotension, unspecified cp - Anemia, unspecified cp - Pancreatitis cp Forms: - Medication Reconciliation Form cp - SBAR form cp Signatures: Dispatcher [employer] EDMS Rush Quezada PA PA cp Botello, Elizabeth eb Garcia, Victoria RN RN vg1 Lizabeth Zheng RN RN tp1 Shi Santos MD MD sd2 Corrections: (The following items were deleted from the chart) 12:37 12:37 Normal except: GLUC 176; BUN 6. cp cp 14:30 13:30 Doctor cp cp 14:31 14:30 DR Cohen cp cp 14:52 14:31 DR Noel sam eb 17:52 14:52 Dr. Contreras [facility] tp1
--- NOTE | 2021-09-25 13:30 | ER ---
Nurse's Notes [facility] Name: Jann Alvarez Age: 31 yrs Sex: Male : 1990 Arrival Date: 09/25/2021 Time: 11:02 Bed 23 Private MD: Ruben Churchill M; Zac Coughlin Diagnosis: GI Bleed/ Gastrointestinal hemorrhage, unspecified;Hypotension, unspecified;Anemia, unspecified;Pancreatitis Presentation: 09/25 11:11 Chief complaint: EMS states: toned out for a syncopal episode about 45 minutes ago that tp1 occurred after a BM. Reported ABD and lower back pain, black stools that started last night, and recent weight loss of 30 LBS. Stated PT currently has pancreatitis and is unusually pale. HX of blood transfusion, last transfusion was a year ago. reports feeding tube has not been used in a week. Coronavirus screen: Vaccine status: Patient reports being unvaccinated. Client denies travel out of the [place] in the last 14 days. Ebola Screen: Patient denies exposure to infectious person. Patient denies travel to an Ebola-affected area in the 21 days before illness onset. Initial Sepsis Screen: Does the patient meet any 2 criteria? No. Patient's initial sepsis screen is negative. Does the patient have a suspected source of infection? No. Patient's initial sepsis screen is negative. Risk Assessment: Do you want to hurt yourself or someone else? Patient reports no desire to harm self or others. Onset of symptoms was September 24, 2021. 11:11 Method Of Arrival: EMS: [facility] tp1 11:11 Acuity: KIMBER 3 tp1 Triage Assessment: 11:08 General: Appears in no apparent distress. comfortable, Behavior is calm, cooperative. tp1 Pain: Complains of pain in epigastric area Noted to be unable to verbalize characteristics of pain. Unable to use pain scale. Patient appears quiet. EENT: No signs and/or symptoms were reported regarding the EENT system. Neuro: Level of Consciousness is awake, alert, obeys commands, Oriented to person, situation. Cardiovascular: Capillary refill < 3 seconds Patient's skin is warm and dry. appears pale. Respiratory: Airway is patent Respiratory effort is even, unlabored. GI: Abdomen is flat, non-distended, Stools are reported to be Last BM was September 25, 2021. Abd is soft and non tender Patient currently denies nausea, vomiting. GI: Enteral feeding tube in place, clamped. dressing dry and clean. : No signs and/or symptoms were reported regarding the genitourinary system. 11:08 Derm: Skin is dry, Skin is pale, Skin temperature is warm discoloration to lower ABD. tp1 Musculoskeletal: Circulation, motion, and sensation intact. Historical: - Allergies: 11:54 meropenem; tp1 11:54 Vancomycin; tp1 11:54 Zosyn; tp1 - Home Meds: 11:54 pantoprazole 40 mg oral TbEC [Active]; Zofran 4 mg Oral tab 1 tab every 12 hours tp1 [Active]; sucralfate 100 mg/mL Oral susp 10 mL 4 times per day [Active]; tylenol every 6 hours [Active]; sinus twice a day [Active]; - PMHx: 11:54 Autism; Gastric varices; Lupus; Pancreatitis; SEVERE PANCREATIC NECROSIS; tp1 - Immunization history:: Client reports having NOT received the Covid vaccine. - Social history:: Smoking status: Patient denies any tobacco usage or history of. Screenin:08 Fall Risk No fall in past 12 months (0 pts). No secondary diagnosis (0 pts). IV access tp1 (20 points). Ambulatory Aid- Crutches/Cane/Walker (15 pts). Gait- Normal/Bed Rest/Wheelchair (0 pts) Mental Status- Oriented to own ability (0 pts). 11:42 Abuse screen: Denies threats or abuse. Nutritional screening: No deficits noted. tp1 Tuberculosis screening: No symptoms or risk factors identified. Assessment: 11:43 General: see triage notes. mother at bedside.. tp1 12:32 Reassessment: Patient appears in no apparent distress at this time. No changes from tp1 previously documented assessment. Patient and/or family updated on plan of care and expected duration. Pain level reassessed. Patient is alert, oriented x 3, equal unlabored respirations, skin warm/dry/pink. returned from CT. 13:32 Reassessment: Patient appears in no apparent distress at this time. No changes from tp1 previously documented assessment. Patient and/or family updated on plan of care and expected duration. Pain level reassessed. Patient is alert, oriented x 3, equal unlabored respirations, skin warm/dry/pink. playing on ipad. 14:45 Reassessment: Patient appears in no apparent distress at this time. No changes from tp1 previously documented assessment. Patient and/or family updated on plan of care and expected duration. Pain level reassessed. Patient is alert, oriented x 3, equal unlabored respirations, skin warm/dry/pink. Blood transfusion of one unit administered. Please refer to transfusion sheet for vitals. 15:03 Reassessment: attempted to call report. vg1 15:35 Reassessment: Patient appears in no apparent distress at this time. No changes from tp1 previously documented assessment. Patient and/or family updated on plan of care and expected duration. Pain level reassessed. Patient is alert, oriented x 3, equal unlabored respirations, skin warm/dry/pink. provider attempted disimpaction. PT tolerated well. 15:54 Reassessment: report given to receiving nurse in [facility]. vg1 16:20 Reassessment: assisted to bedside commode, 1 small pebble sized BM. tp1 16:32 Reassessment: Reassessment: Patient appears in no apparent distress at this time. No tp1 changes from previously documented assessment. Patient and/or family updated on plan of care and expected duration. Pain level reassessed. Patient is alert, oriented x 3, equal unlabored respirations, skin warm/dry/pink. playing on Ipad. 17:00 Reassessment: pt had a black, soft BM, provider notified. tp1 17:20 Reassessment: administer blood transfusion second unit. refer to transfusion record. tp1 17:38 Reassessment: transfer of care of blood transfusion to Ray Laws EMT-P [facility] tp1 ambulance. please refer to transfusion record. Vital Signs: 11:08 BP 97 / 72; Pulse 107; Resp 20; Temp 98.5; Pulse Ox 100% ; tp1 11:11 BP 97 / 72; Pulse 107; Resp 20; Temp 98.5; Pulse Ox 100% on R/A; Weight 58.97 kg; tp1 Height 5 ft. 10 in. (177.80 cm); 12:08 BP 97 / 79; Pulse 102; Resp 18; Pulse Ox 100% on R/A; tp1 13:00 BP 93 / 65; Pulse 90; Resp 14; Pulse Ox 100% on R/A; vg1 14:00 BP 100 / 79; Pulse 92; Resp 18; Pulse Ox 100% on R/A; vg1 14:45 BP 102 / 67; Pulse 86; Resp 14; Pulse Ox 100% on R/A; vg1 15:00 BP 97 / 66; Pulse 88; Resp 15; Pulse Ox 100% on R/A; vg1 17:35 BP 108 / 74; Pulse 87; Resp 14; Temp 98.6(O); Pulse Ox 100% on R/A; vg1 11:11 Body Mass Index 18.65 (58.97 kg, 177.80 cm) tp1 ED Course: 11:02 Patient arrived in ED. eb 11:08 Patient has correct armband on for positive identification. Bed in low position. Call tp1 light in reach. Side rails up X 1. Adult w/ patient. 11:08 Client placed on continuous cardiac and pulse oximetry monitoring. NIBP monitoring tp1 applied. 11:09 Shi Santos MD is Attending Physician. sd2 11:10 Rush Quezada PA is PHCP. cp 11:11 Lizabeth Zheng, BRISA is Primary Nurse. tp1 11:11 Arm band placed on. vg1 11:15 Served as a elementary education tutor during rectal exam. tp1 11:18 Triage completed. tp1 11:25 Inserted saline lock: 20 gauge in right forearm, using aseptic technique. Blood tp1 collected. 11:39 Zac Coughlin MD is Private Physician. as 11:39 Ruben Churchill MD is Private Physician. as 11:56 XRAY Chest (1 view) In Process Unspecified. EDMS 12:26 CT Abd/Pelvis - IV Contrast Only In Process Unspecified. EDMS 13:20 attempted to initiate a transfer with the [facility]/ no answer at this eb time/ call timed out and dropped will attempt again in a few minutes. 13:36 initiated a transfer with Vargas Villanueva from the [facility] [place]. eb 14:[address] Cohen the personnel worker hospitalist for [facility] with Rush Dominique for eb patient transfer consultation. 14:43 Inserted saline lock: 22 gauge in right antecubital area, using aseptic technique. vg1 14:44 administrative approval given by Vargas Villanueva/ patient has been accepted to [place] [id number]/ Dr. Ankit Contreras has accepted the patient in transfer/ report to be called to [phone]. 17:41 Patient transferred, IV remains in place. vg1 Administered Medications: 11:34 Drug: ProTONIX (pantoprazole) 40 mg Route: IVP; Site: right femoral; tp1 15:07 Follow up: Response: No adverse reaction vg1 11:36 Drug: NS 0.9% 1000 ml Route: IV; Rate: 1 bolus; Site: right forearm; tp1 13:00 Follow up: IV Status: Completed infusion; IV Intake: 1000ml tp1 11:39 Drug: ProTONIX (pantoprazole) 8 mg/hr Route: IV; Rate: 25 ml/hr; Site: right forearm; tp1 17:49 Follow up: IV Status: Infusion continued upon transfer tp1 14:48 Drug: Rocephin (cefTRIAXone) 1 grams Route: IV; Rate: calculated rate; Site: right vg1 antecubital; 14:50 Follow up: IV Status: Completed infusion; IV Intake: 50ml vg1 15:17 Drug: Lactulose 30 grams Volume: 45 ml; Route: PO; vg1 16:34 Follow up: Response: No adverse reaction vg1 15:43 Drug: Dulcolax (bisacodyl) Suppository 10 mg Route: IN; vg1 16:35 Follow up: Response: No adverse reaction vg1 17:04 Not Given (Physician Discretion): Fleet Enema (sodium phosphate) 133 ml IN once; june vg1 repeat once 17:51 Not Given (pt transfered with blood products and protonix drip ): Magnesium Sulfate 1 tp1 grams IVPB once over 1 hrs Medication: 17:41 VIS not applicable for this client. vg1 Intake: 13:00 IV: 1000ml; Total: 1000ml. tp1 14:50 IV: 50ml; Total: 1050ml. vg1 Outcome: 13:30 ER care complete, transfer ordered by MD. sam 17:41 Transferred by ground EMS to [facility]. vg1 17:41 Condition: good 17:41 Instructed on the need for transfer. 17:52 Patient left the ED. tp1 Signatures: Dispatcher [employer] EDMS Teresa Cedeno Corey, PA PA cp Botello, Elizabeth eb Garcia, Victoria, RN RN vg1 Lizabeth Zheng RN RN tp1 Shi Santos MD MD sd2 Corrections: (The following items were deleted from the chart) 12:32 12:32 Reassessment: Patient appears in no apparent distress at this time. No changes tp1 from previously documented assessment. Patient and/or family updated on plan of care and expected duration. Pain level reassessed. Patient is alert, oriented x 3, equal unlabored respirations, skin warm/dry/pink. tp1 12:41 12:40 BP 97 / 79; Pulse 102bpm; Resp 18bpm; Pulse Ox 100% RA; tp1 tp1 15:06 11:43 General: see triage notes. tp1 tp1 16:33 15:45 Reassessment: Patient appears in no apparent distress at this time. No changes tp1 from previously documented assessment. Patient and/or family updated on plan of care and expected duration. Pain level reassessed. Patient is alert, oriented x 3, equal unlabored respirations, skin warm/dry/pink. tp1 17:48 17:38 Reassessment: transfer of care to Ray Laws EMT-P [facility] ambulance tp1 tp1
[2021-09-25 14:14] LABS: SARS-CoV-2 Antigen Rapid Res Negative (Negative)
[2021-09-25] MEDS ORDERED: CEFTRIAXONE 1000 MG/VIAL ONE (14:16)
[2021-09-25] MEDS ORDERED: NA CHLORIDE 0.9% 50 ML ONE (14:16)
[2021-09-25] MEDS ORDERED: LACTULOSE 20 GM/30 ML UCUP ONE (14:16)
[2021-09-25] MEDS ORDERED: BISACODYL E.C. 5 MG TAB PO ONE (15:28)
[2021-09-25] MEDS ORDERED: BISACODYL 10 MG RECTAL SUPP ONE (15:30)
[2021-09-25 18:17] VITALS: O2SAT 100
[2021-09-25 18:48] VITALS: BP 108/74; TEMP 98.6
[2021-09-25] MEDS ORDERED: MINERAL OIL ENEMA 135 ML BTL PR ONE (20:01)
--- NOTE | 2021-09-26 08:08 | EKG ---
Test Date: 2021-09-25 Test Time: 11:31:54 Photo Technician: ANDRÉS MEASUREMENT RESULTS: Intervals: Rate: 109 NC: 146 QRSD: 76 QT: 336 QTc: 452 [place]: P: 53 NC: 146 QRS: 38 T: 41 INTERPRETIVE STATEMENTS: Sinus tachycardia Otherwise normal ECG Compared to ECG 12/13/2019 10:04:05 No significant changes Electronically Signed On 09-26-21 08:06:26 CDT by Charly Faustin
== END 2021-09-25 17:52 | disposition short-term general hospital (02) ==
LOC: ER 11:00
PROC: 30233N1 Transfusion of Nonautologous Red Blood Cells into Peripheral Vein, Percutaneous Approach (ICD-10-PCS; principal; 2021-09-25)
DX: K92.2 Gastrointestinal hemorrhage, unspecified (principal); I95.9 Hypotension, unspecified; D64.9 Anemia, unspecified; K85.90 Acute pancreatitis without necrosis or infection, unspecified; Z20.822 Contact with and (suspected) exposure to COVID-19; Z88.3 Allergy status to other anti-infective agents; Z88.8 Allergy status to other drugs, medicaments and biological substances
CPT/HCPCS: 93005; 87040 ×2; 85025; 80048; 36415; 86900; 83735; 86850; 87205; 85610; 86901; 80076; 82272; 84484; 83880; 74177; 71045; 99285; 87811; 36430; Q9967; C9113; P9016 ×2; J7030 ×2; J7050

== ENCOUNTER 2024-12-02 08:17 | Emergency (ER) | payer OTHER, SELFPAY ==
[2024-12-02] MEDS ORDERED: NA CHLORIDE 0.9% 500 ML ONE (09:27)
[2024-12-02] MEDS ORDERED: NA CHLORIDE 0.9% 1,000 ML ONE (09:28)
--- NOTE | 2024-12-02 09:37 | RAD REPORT ---
EXAMINATION: ONE VIEW CHEST XR CLINICAL INDICATION: Male, 34 years old.,CHEST PAIN TECHNIQUE: Frontal chest projection is submitted. Examination is limited by patient positioning and t echnique. COMPARISON: 09/25/2021 FINDINGS: The lungs are well inflated and clear. No pneumothorax or sizable effusion. The heart is normal in s ize. Mediastinal contours are unremarkable. IMPRESSION: No acute intrathoracic abnormalities.
[2024-12-02 10:49] LABS: Absolute Lymphocytes (CBC) 3.0 K/uL (0.7-4.9); Hematocrit 53.6 % (39.6-49.0); Hemoglobin 16.9 g/dL (13.6-17.9); MCH 30.7 pg (27.0-35.0); MCHC 31.5 g/dL (32.0-36.0); MCV 97.3 fL (80-100); MPV 10.7 fL (7.6-11.3); Nucleated RBC Absolute Count 0.0 (0-0); Nucleated Red Blood Cells % 0.0 % (0-0); RBC Red Blood Cell Count 5.51 M/uL (4.33-5.43); White Blood Count 39.20 thou/uL (4.3-10.9)
[2024-12-02 10:54] LABS: Influenza A Ag Negative; Influenza B Ag Negative; SARS-CoV-2 Antigen Rapid Res Negative (Negative)
[2024-12-02 11:04] LABS: ALT/SGPT 134.0 U/L (16-61); Albumin 3.1 g/dL (3.4-5.0); Albumin/Globulin Ratio 0.5 (1.1-1.8); Alkaline Phosphatase 279.0 U/L (45-117); Anion Gap 40.9 mEq/L (5.0-15.0); BUN Blood Urea Nitrogen 32.0 mg/dL (7-18); Globulin 5.7 g/dL (2.3-3.5); Glucose Level 674.0 mg/dL (74-106); Lipase 184.0 U/L (13-75); Troponin High Sensitivity 18.7 pg/mL (<58.9)
[2024-12-02 11:05] LABS: AST/SGOT 154.0 U/L (15-37); Potassium 2.9 mEq/L (3.5-5.1)
[2024-12-02 11:16] LABS: PT Prothrombin Time 16.7 SECONDS (10-13.0); PTT, Activated Partial Thromb 46.0 SECONDS (27.2-37.4); Protime INR 1.5
[2024-12-02 11:26] LABS: Differential Total Cells Count 100; Segmented Neutrophils 77 % (40-80); Toxic Granulation 1+
[2024-12-02 11:27] LABS: Blood Morphology Comment NOT SEEN (NOT SEEN); Platelets, Giant PRESENT
--- NOTE | 2024-12-02 11:28 | EDPHYS ---
Physician Documentation [facility] Name: Jann Alvarez Age: 34 yrs Sex: Male : 1990 Arrival Date: 12/02/2024 Time: 08:17 Bed 18 Private MD: ED Physician Mitchell Cox HPI: 12/02 08:46 This 34 yrs old Male presents to ER via Unassigned with complaints of sb4 Weakness, Blood Pressure Problem. 08:46 34 year old male with PMH of pancreatitis and autism presents with weakness, sb4 hypotension, tachycardia, and elevated blood sugar. mom states that he has been "sick" over the past 2 days with cough, body aches, fever, decreased PO intake. she states that he started experiencing n/v last night, states the vomit was red tinged this morning, didn't look like blood but he hasn't ingested anything red in color. Historical: - Allergies: 09:20 meropenem; dd2 09:20 Vancomycin; dd2 09:20 Zosyn; dd2 - PMHx: 09:20 Autism; Gastric varices; Lupus; Pancreatitis; SEVERE PANCREATIC NECROSIS; dd2 - PSHx: 09:20 feeding tube (P); Cholecystectomy; Splenectomy; dd2 - Immunization history:: Adult Immunizations unknown. - Infectious Disease History:: Denies. - Social history:: Smoking status: Patient denies any tobacco usage or history of. ROS: 08:46 Cardiovascular: Negative for chest pain, palpitations, and edema, sb4 08:46 Constitutional: Positive for body aches, chills, fatigue, fever, malaise, poor PO intake, 08:46 Abdomen/GI: Positive for nausea and vomiting, 08:46 All other systems are negative, Exam: 08:46 Head/Face: Normocephalic, atraumatic. Eyes: Extra-ocular motions intact. Periorbital sb4 areas with no swelling, redness, or edema. Respiratory: No increased work of breathing, no retractions or nasal flaring. Abdomen/GI: Soft, non-tender, no distension. Skin: Warm, dry with normal turgor. Normal color with no rashes, no lesions, and no evidence of cellulitis. 08:46 Constitutional: The patient appears alert, awake, obviously ill, pale, 08:46 ENT: Mouth: Oral mucosa: dry, 08:46 Cardiovascular: Rate: tachycardic, Rhythm: regular, Vital Signs: 09:00 BP 67 / 49; Pulse 132; Resp 17; Pulse Ox 100% on R/A; dd2 09:15 BP 74 / 55; Pulse 133; Resp 18; Pulse Ox 100% on R/A; dd2 09:17 BP 60 / 35; Pulse 136; Resp 17; Temp 97.5(A); Pulse Ox 99% on R/A; Weight 48.08 kg; dd2 09:30 BP 87 / 59; Pulse 135; Resp 18; Pulse Ox 100% on R/A; dd2 09:45 BP 90 / 67; Pulse 131; Resp 18; Pulse Ox 100% on R/A; dd2 10:00 BP 80 / 59; Pulse 128; Resp 18; Pulse Ox 100% on R/A; dd2 10:15 BP 93 / 68; Pulse 127; Resp 18; Pulse Ox 100% on R/A; dd2 10:30 BP 85 / 67; Pulse 125; Resp 18; Pulse Ox 100% on R/A; dd2 10:45 BP 92 / 70; Pulse 127; Resp 16; Pulse Ox 100% on R/A; dd2 11:00 BP 92 / 69; Pulse 117; Resp 16; Pulse Ox 100% on R/A; dd2 11:30 BP 93 / 67; Pulse 123; Resp 17; Pulse Ox 100% on R/A; dd2 11:45 BP 93 / 72; Pulse 121; Resp 16; Pulse Ox 100% on R/A; dd2 12:00 BP 98 / 70; Pulse 119; Resp 16; Pulse Ox 100% on R/A; dd2 12:15 BP 109 / 93; Pulse 124; Resp 16; Pulse Ox 100% on R/A; dd2 12:45 BP 113 / 76; Pulse 128; Resp 18; Pulse Ox 100% ; dd2 13:15 BP 99 / 70; Pulse 123; Resp 18; Pulse Ox 100% on R/A; dd2 13:45 BP 110 / 85; Pulse 116; Resp 17; Pulse Ox 100% on R/A; dd2 14:15 BP 106 / 80; Pulse 127; Resp 17; Pulse Ox 100% on R/A; dd2 14:45 BP 121 / 86; Pulse 122; Resp 17; Pulse Ox 100% on R/A; dd2 15:45 BP 121 / 71; Pulse 125; Resp 18; Pulse Ox 100% on R/A; dd2 MDM: 08:20 Medical Screening Exam initiated sb4 10:16 Differential Diagnosis altered mental status, sepsis, flu, volume depletion, pneumonia. sb4 Historians other than the Patient: Parent: mother. 11:29 Data reviewed: vital signs, nurses notes, EMS record, lab test result(s), EKG, sb4 radiologic studies, I have discussed the patient's presentation/case with the attending Emergency Department Physician;. Counseling: I had a detailed discussion with the patient and/or guardian regarding the historical points, exam findings, and any diagnostic results supporting the discharge/admit diagnosis, lab results, radiology results, the need to transfer to another facility, for higher level of care. 14:36 Post IV fluid administration reassessment for Sepsis: Client prescribed 30 mL/kg IVF. sb4 Sepsis focused reassessment complete. 12/02 08:21 Order name: Blood Culture Adult (2) sb4 12/02 08:21 Order name: CBC with Diff; Complete Time: 11:27 sb4 12/02 08:21 Order name: CMP; Complete Time: 11:07 sb4 12/02 08:21 Order name: Lactate w/ 2H reflex if indic.; Complete Time: 11:06 sb4 12/02 08:21 Order name: Protime (+inr); Complete Time: 11:17 sb4 12/02 08:21 Order name: Ptt, Activated; Complete Time: 11:17 sb4 12/02 08:21 Order name: Troponin HS; Complete Time: 11:07 sb4 12/02 08:21 Order name: Lipase; Complete Time: 11:07 sb4 12/02 08:21 Order name: COVID-19 Ag + Flu A+B Ag; Complete Time: 10:55 sb4 12/02 11:05 Order name: Ghost Lactate-NO COLLECT Timer; Complete Time: 13:03 EDMS 12/02 11:26 Order name: VBG; Complete Time: 13:38 sb4 12/02 11:27 Order name: Manual Differential; Complete Time: 11:27 EDMS 12/02 13:56 Order name: Lactate Sepsis 2 HR Follow-up; Complete Time: 13:57 EDMS 12/02 14:59 Order name: Glucose, Ancillary Testing; Complete Time: 14:59 EDMS 12/02 15:58 Order name: Glucose, Ancillary Testing; Complete Time: 16:01 EDMS 12/02 08:21 Order name: Chest Single View XRAY; Complete Time: 09:37 sb4 12/02 12:09 Order name: CT Abd/Pelvis - Without Contrast; Complete Time: 13:30 sb4 12/02 10:22 Order name: EKG Electrocardiogram; Complete Time: 10:44 EDMS 12/02 08:21 Order name: Accucheck; Complete Time: 13:32 sb4 12/02 08:21 Order name: Cardiac monitoring; Complete Time: 09:43 sb4 12/02 08:21 Order name: EKG - Nurse/Tech; Complete Time: 09:43 sb4 12/02 08:21 Order name: IV Saline Lock - Large Bore; Complete Time: 09:43 sb4 12/02 08:21 Order name: Labs collected and sent; Complete Time: 10:32 sb4 12/02 08:21 Order name: O2 Per Protocol; Complete Time: 09:17 sb4 12/02 08:21 Order name: O2 Sat Monitoring; Complete Time: 09:17 sb4 12/02 08:21 Order name: Vital Signs; Complete Time: 09:17 sb4 12/02 10:42 Order name: Labs - recollect needed: recollect green top; Complete Time: 10:47 bd EC:42 Rate is 130 beats/min. Rhythm is regular, Sinus tachycardia. CT interval is normal at sb4 128 msec. QRS interval is normal at 94 msec. QT interval is normal at 408 msec. No Q waves. T waves are Normal. No ST changes noted. Clinical impression: Sinus tachycardia. Interpreted by me. Reviewed by me. Administered Medications: 09:43 Drug: NS 0.9% IV (30 ml/kg) 30 ml/kg IV at bolus once; Sepsis Protocol; to be given as dd2 a bolus over 90 minutes Route: IV; Rate: bolus; Site: right wrist; 11:13 Follow up: IV Status: Completed infusion dd2 12:25 Drug: Cefepime IVPB 1 grams IVPB at 200 ml/hr once over 30 mins; (mix in NS 100 mL) dd2 Route: IVPB; Rate: 200 ml/hr; Infused Over: 30 mins; Site: right wrist; 12:55 Follow up: IV Status: Completed infusion dd2 12:25 Drug: Ondansetron IVP 4 mg IVP once; over 2 minutes Route: IVP; Site: right wrist; dd2 12:40 Follow up: Response: No adverse reaction dd2 12:26 Drug: NS IV 0.45 % 1000 ml IV at 125 ml/hr continuous Route: IV; Rate: 125 ml/hr; Site: dd2 right wrist; 15:50 Follow up: IV Status: Completed infusion dd2 13:24 Drug: Potassium Chloride PO 40 mEq PO once Route: PO; dd2 15:51 Follow up: Response: Vomiting increased; Other dd2 13:40 Drug: Insulin Drip - (Insulin Regular Human IVP 100 units, NS 0.9% IV 100 ml) IV at dd2 calculated rate continuous; Standard concentration 1unit/ml; Dose for DKA is 0.1 units/kg/hr {Co-Signature: me1 (Arelis Manzo RN).} Route: IV; Rate: calculated rate; Site: right forearm; 14:48 Follow up: Rate change 2.4 ml/hr; BGS 423 dd2 15:50 Follow up: IV Status: Infusion continued upon transfer dd2 14:18 Drug: D5W IV 1000 ml, Sodium Bicarbonate IVP 150 mEq IV at 75 calculated rate dd2 continuous Route: IV; Rate: 75 calculated rate; Site: right wrist; 15:50 Follow up: IV Status: Infusion continued upon transfer dd2 Disposition: 18:25 I was immediately available on-site in the Emergency Department for consultation in the ms3 care of the patient. Disposition Summary: 12/02/24 11:27 Transfer Ordered Notes: Transfer Location: [facility] sb4 Reason: Higher level of care sb4 Condition: Fair sb4 Problem: new sb4 Symptoms: have improved sb4 Accepting Physician: intensitivist(12/02/24 16:28) bd Diagnosis - Diabetic ketoacidosis -new onset sb4 - Acute kidney failure, unspecified sb4 - Severe sepsis with septic shock sb4 - Acute on chronic pancreatitis sb4 Forms: - Medication Reconciliation Form sb4 - SBAR form sb4 Critical care time excluding procedures: 11:29 Critical care time: Bedside Care: 15 minutes, Consultation: 15 minutes, Family sb4 Intervention: 5 minutes. Total time: 35 minutes Signatures: Dispatcher [employer] EDMS Rosalinda Perry bd Mitchell Cox, DO ms3 Nga Martinez PA-C PACyndee sb4 TRAY NIELSEN, RN RN dd2 Arelis Manzo RN me1 Corrections: (The following items were deleted from the chart) 08:22 08:22 BLOOD CULTURE*+BA.LAB.BRZ ordered. EDMS EDMS 08:22 08:22 CBC+H.LAB.BRZ ordered. EDMS EDMS 08:22 08:22 COMPREHENSIVE METABOLIC PANEL+C.LAB.BRZ ordered. EDMS EDMS 08:22 08:22 LACTATE+C.LAB.BRZ ordered. EDMS EDMS 08:22 08:22 PROTIME (+INR)+COAG.LAB.BRZ ordered. EDMS EDMS 08:22 08:22 PTT, ACTIVATED+COAG.LAB.BRZ ordered. EDMS EDMS 08:22 08:22 Troponin High Sensitivity+C.LAB.BRZ ordered. EDMS EDMS 08:22 08:22 LIPASE+C.LAB.BRZ ordered. EDMS EDMS 08:22 08:22 COVID-19 Ag + Flu A+B Ag+I.LAB.BRZ ordered. EDMS EDMS 08:22 08:22 Chest Single View+RAD.RAD.BRZ ordered. EDMS EDMS 16:28 11:27 intensitivist sb4 bd
--- NOTE | 2024-12-02 11:28 | ER ---
Nurse's Notes [facility] Name: aJnn Alvarez Age: 34 yrs Sex: Male : 1990 Arrival Date: 12/02/2024 Time: 08:17 Bed 18 Private MD: Diagnosis: Diabetic ketoacidosis -new onset;Acute kidney failure, unspecified;Severe sepsis with septic shock;Acute on chronic pancreatitis Presentation: 12/02 09:17 Chief complaint: EMS states: MOM REPORTS LOW BACK PAIN AND BODY PAIN WITH COUGH, dd2 WEAKNESS AND VOMITING X 2 DAYS. EMS BGS READ 'HI", MOM DENIES DIABETES. BP ON SCENE 67/49, 136 BPM. Coronavirus screen: At this time, the client does not indicate any symptoms associated with coronavirus-19. Ebola Screen: No symptoms or risks identified at this time. Initial Sepsis Screen: Does the patient meet any 2 criteria? Systolic BP < 90 mmHg. HR > 90 bpm. Yes Does the patient have a suspected source of infection? No. Patient's initial sepsis screen is negative. Risk Assessment: Do you want to hurt yourself or someone else? Patient reports no desire to harm self or others. Onset of symptoms was November 30, 2024. 09:17 Method Of Arrival: EMS: [facility] dd2 09:17 Acuity: KIMBER 2 dd2 Triage Assessment: 09:20 General: Appears ill, slender, Behavior is cooperative, inappropriate for age, quiet. dd2 Pain: Complains of pain in abdomen. Neuro: Level of Consciousness is alert, obeys commands, lethargic, Oriented to HX OF AUTISM BASE LINE DECREASED VERBALIZATION . Reports weakness in GENERALIZED. Cardiovascular: HYPOTENSIVE. Respiratory: Reports cough that is Airway is patent Respiratory effort is even, unlabored, Respiratory pattern is regular, symmetrical, Breath sounds are clear bilaterally. GI: Abdomen is flat, Reports lower abdominal pain, upper abdominal pain. : No signs and/or symptoms were reported regarding the genitourinary system. Derm: No signs and/or symptoms reported regarding the dermatologic system. Musculoskeletal: Reports weakness in GENERALIZED. 09:20 EENT: No deficits noted. No signs and/or symptoms were reported regarding the EENT dd2 system. Historical: - Allergies: 09:20 meropenem; dd2 09:20 Vancomycin; dd2 09:20 Zosyn; dd2 - PMHx: 09:20 Autism; Gastric varices; Lupus; Pancreatitis; SEVERE PANCREATIC NECROSIS; dd2 - PSHx: 09:20 feeding tube (P); Cholecystectomy; Splenectomy; dd2 - Immunization history:: Adult Immunizations unknown. - Infectious Disease History:: Denies. - Social history:: Smoking status: Patient denies any tobacco usage or history of. Screenin:11 [facility] ED Fall Risk Assessment (Adult) History of falling in the last 3 months, dd2 including since admission No falls in past 3 months (0 pts) Confusion or Disorientation No (0 pts) Intoxicated or Sedated No (0 pts) Impaired Gait Yes (1 pt) Mobility Assist Device Used Yes (1 pt) Altered Elimination No (0 pt) Score/Fall Risk Level 3 or more points = High Risk Oriented to surroundings, Maintained a safe environment, Educated pt \\T\\ family on fall prevention, incl call for assistance when getting out of bed, Assessed \\T\\ reinforced patient's understanding of fall precautions, Hourly rounding (assess needs \\T\\ fall precautionary measures) done, Used ambulatory aids as needed (educated on \\T\\ assisted with). Abuse screen: Denies threats or abuse. Denies injuries from another. Nutritional screening: Has had N/V for 3 or more days. Tuberculosis screening: No symptoms or risk factors identified. Assessment: 09:23 Reassessment: SEE TRIAGE ASSESSMENT. dd2 Vital Signs: 09:00 BP 67 / 49; Pulse 132; Resp 17; Pulse Ox 100% on R/A; dd2 09:15 BP 74 / 55; Pulse 133; Resp 18; Pulse Ox 100% on R/A; dd2 09:17 BP 60 / 35; Pulse 136; Resp 17; Temp 97.5(A); Pulse Ox 99% on R/A; Weight 48.08 kg; dd2 09:30 BP 87 / 59; Pulse 135; Resp 18; Pulse Ox 100% on R/A; dd2 09:45 BP 90 / 67; Pulse 131; Resp 18; Pulse Ox 100% on R/A; dd2 10:00 BP 80 / 59; Pulse 128; Resp 18; Pulse Ox 100% on R/A; dd2 10:15 BP 93 / 68; Pulse 127; Resp 18; Pulse Ox 100% on R/A; dd2 10:30 BP 85 / 67; Pulse 125; Resp 18; Pulse Ox 100% on R/A; dd2 10:45 BP 92 / 70; Pulse 127; Resp 16; Pulse Ox 100% on R/A; dd2 11:00 BP 92 / 69; Pulse 117; Resp 16; Pulse Ox 100% on R/A; dd2 11:30 BP 93 / 67; Pulse 123; Resp 17; Pulse Ox 100% on R/A; dd2 11:45 BP 93 / 72; Pulse 121; Resp 16; Pulse Ox 100% on R/A; dd2 12:00 BP 98 / 70; Pulse 119; Resp 16; Pulse Ox 100% on R/A; dd2 12:15 BP 109 / 93; Pulse 124; Resp 16; Pulse Ox 100% on R/A; dd2 12:45 BP 113 / 76; Pulse 128; Resp 18; Pulse Ox 100% ; dd2 13:15 BP 99 / 70; Pulse 123; Resp 18; Pulse Ox 100% on R/A; dd2 13:45 BP 110 / 85; Pulse 116; Resp 17; Pulse Ox 100% on R/A; dd2 14:15 BP 106 / 80; Pulse 127; Resp 17; Pulse Ox 100% on R/A; dd2 14:45 BP 121 / 86; Pulse 122; Resp 17; Pulse Ox 100% on R/A; dd2 15:45 BP 121 / 71; Pulse 125; Resp 18; Pulse Ox 100% on R/A; dd2 ED Course: 08:20 Patient arrived in ED. bd 08:20 Nga Martinez PA-C is PHCP. sb4 08:20 Mitchell Cox DO is Attending Physician. sb4 09:01 TRAY NIELSEN, BRISA is Primary Nurse. dd2 09:20 Triage completed. dd2 09:20 Arm band placed on right wrist. dd2 09:26 Chest Single View XRAY In Process Unspecified. EDMS 09:42 EKG done, by ED staff, reviewed by Nga Martinez PA-C. Inserted saline lock: 22 gauge in dd2 right wrist, using aseptic technique. Flushed with 10 mL NS. 09:56 CMP Sent. mb4 09:56 Troponin HS Sent. mb4 10:05 COVID-19 Ag + Flu A+B Ag Sent. mb4 10:10 First set of blood cultures drawn by me. hb 10:26 Accessed peripheral vein via ultrasound, utilizing dynamic ultrasound technique using hb ,sterile technique, per hospital protocol. Clean \\T\\ dry. Dressing intact. Good blood return. Flushes easily. 20g RFA. 10:26 Lab(s) recollected, by me, sent to lab. Second set of blood cultures drawn. hb 11:11 Patient has correct armband on for positive identification. Bed in low position. Call dd2 light in reach. Side rails up X2. Client placed on continuous cardiac and pulse oximetry monitoring. NIBP monitoring applied. 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 Door closed. Noise minimized. Warm blanket given. Pillow given. Verbal reassurance given. 11:11 No provider procedures requiring assistance completed. Patient maintains SpO2 dd2 saturation greater than 95% on room air. 11:[address] [facility] bd 12:55 CT Abd/Pelvis - Without Contrast In Process Unspecified. EDMS 13:32 VBG Sent. dd2 15:56 pt accepted in transfer to [facility] by dr parra admin approval given by ward Renee pt going to 207. Administered Medications: 09:43 Drug: NS 0.9% IV (30 ml/kg) 30 ml/kg IV at bolus once; Sepsis Protocol; to be given as dd2 a bolus over 90 minutes Route: IV; Rate: bolus; Site: right wrist; 11:13 Follow up: IV Status: Completed infusion dd2 12:25 Drug: Cefepime IVPB 1 grams IVPB at 200 ml/hr once over 30 mins; (mix in NS 100 mL) dd2 Route: IVPB; Rate: 200 ml/hr; Infused Over: 30 mins; Site: right wrist; 12:55 Follow up: IV Status: Completed infusion dd2 12:25 Drug: Ondansetron IVP 4 mg IVP once; over 2 minutes Route: IVP; Site: right wrist; dd2 12:40 Follow up: Response: No adverse reaction dd2 12:26 Drug: NS IV 0.45 % 1000 ml IV at 125 ml/hr continuous Route: IV; Rate: 125 ml/hr; Site: dd2 right wrist; 15:50 Follow up: IV Status: Completed infusion dd2 13:24 Drug: Potassium Chloride PO 40 mEq PO once Route: PO; dd2 15:51 Follow up: Response: Vomiting increased; Other dd2 13:40 Drug: Insulin Drip - (Insulin Regular Human IVP 100 units, NS 0.9% IV 100 ml) IV at dd2 calculated rate continuous; Standard concentration 1unit/ml; Dose for DKA is 0.1 units/kg/hr {Co-Signature: me1 (Arelis Mazno RN).} Route: IV; Rate: calculated rate; Site: right forearm; 14:48 Follow up: Rate change 2.4 ml/hr; BGS 423 dd2 15:50 Follow up: IV Status: Infusion continued upon transfer dd2 14:18 Drug: D5W IV 1000 ml, Sodium Bicarbonate IVP 150 mEq IV at 75 calculated rate dd2 continuous Route: IV; Rate: 75 calculated rate; Site: right wrist; 15:50 Follow up: IV Status: Infusion continued upon transfer dd2 Intake: Outcome: 11:27 ER care complete, transfer ordered by MD. [email or web address] 16:28 Patient left the ED. bd Signatures: Dispatcher [employer] EDRosalinda Martinez Heather, RN RN Reny Barragan 4 Nga Martinez PA-C PA-C sb4 TRAY NIELSEN RN RN dd2 Arelis Manzo RN me1 Corrections: (The following items were deleted from the chart) 10:43 10:10 First set of blood cultures drawn hb 15:32 09:20 Neuro: Level of Consciousness is alert, obeys commands, lethargic, Reports dd2 weakness in GENERALIZED dd2 15:33 09:20 General: Appears ill, Behavior is cooperative, inappropriate for age, quiet, dd2 dd2 16:02 09:17 Chief complaint: EMS states: PT REPORTS LOW BACK PAIN AND BODY PAIN WITH COUGH, dd2 WEAKNESS AND VOMITING X 2 DAYS. EMS BGS READ 'HI", MOM DENIES DIABETES. BP ON SCENE 67/49, 136 BPM dd2
[2024-12-02] MEDS ORDERED: ONDANSETRON 4 MG/2 ML VIAL ONE (12:11)
[2024-12-02] MEDS ORDERED: POTASSIUM CL SA 10 MEQ TAB PO ONE (12:11)
[2024-12-02] MEDS ORDERED: CEFEPIME 1 GM/VIAL ONE (12:12)
[2024-12-02] MEDS ORDERED: NACHLORIDE 0.45% 1,000 ML IV ONE (12:12)
[2024-12-02] MEDS ORDERED: GLUCAGON 1 MG/VIAL IM PRN (12:27)
[2024-12-02] MEDS ORDERED: D50W 25 GM/50 ML SYRINGE IV PRN (12:27)
[2024-12-02] MEDS ORDERED: INSULIN REGULAR, HUMAN 100 UNIT in NA CHLORIDE 0.9% 100 ML IV SCH (12:28)
--- NOTE | 2024-12-02 13:27 | RAD REPORT ---
EXAMINATION: CT ABDOMEN AND PELVIS WITHOUT CONTRAST CLINICAL INDICATION: Abdominal pain TECHNIQUE: CT abdomen and pelvis was performed, as per department protocol. IV contrast and oral was not administered.Axial, sagittal and coronal reconstructions were obtained. One or more of the following dose reduction techniques were used: Automated exposure control, adjustment of the mA and/o r kV according to the patient size, and/or iterative reconstruction. Unless otherwise specified, incidental findings do not require dedicated imaging follow-up. [id number]. COMPARISON: 2023 FINDINGS: The lack of intravenous and oral contrast limits evaluation of solid organs, vessels and bowel. Fatty liver. Splenectomy. Minimal stranding adjacent to the pancreatic head. Adrenals and kidneys grossly normal. Rectum is distended with stool compatible with fecal impaction. Large amount of stool present through out the colon. No evidence of diverticulitis IMPRESSION: Fecal impaction with large amount of stool present throughout the colon. Minimal stranding adjacent to the pancreatic head may indicate a minimal pancreatitis
[2024-12-02 13:31] LABS: PCO2, Venous Blood Gas 14 mmHg (41-51); PO2, Venous Blood Gas 136 mmHg (25-40)
[2024-12-02 13:32] LABS: Base Excess, VBG -25.4 mmol/L (-2.0-3.0); HCO3, Venous Blood Gas 4.3 mmol/L (21.0-29.0); O2 Saturation, VBG 97.9 % (40.0-70.0)
[2024-12-02 13:35] LABS: PH, Venous Blood Gas 7.10 (7.32-7.42)
[2024-12-02] MEDS ORDERED: D5W 1,000 ML with NA BICARB 8.4% 150 MEQ IV SCH (14:00)
[2024-12-02 22:29] VITALS: TEMP 97.5
[2024-12-02 22:31] VITALS: O2SAT 100
[2024-12-02 22:49] VITALS: BP 121/71
== END 2024-12-02 16:28 | disposition short-term general hospital (02) ==
LOC: ER 08:17
DX: E11.10 Type 2 diabetes mellitus with ketoacidosis without coma (principal); N17.9 Acute kidney failure, unspecified; R65.21 Severe sepsis with septic shock; K85.90 Acute pancreatitis without necrosis or infection, unspecified; K86.1 Other chronic pancreatitis; F84.0 Autistic disorder; Z11.52 Encounter for screening for COVID-19
CPT/HCPCS: 93005; 87040 ×2; 85025; 36415; 85610; 82947 ×2; 83605 ×2; 85730; 84484; 83690; 80053; 74176; 71045; 99285; 82803; 87428; J2405; J1815; J7040; J7030; J0692